=== PATIENT | male | born 1950 | race Caucasian/White ===

== ENCOUNTER → 2017-10-06 12:00 | Outpatient (CLI) | payer MEDICARE, SELFPAY ==
[2017-10-06 13:23] LABS: Absolute Lymphocyte Count 2.44 X10^3/ul (0.83-4.51); Absolute Neutrophil Count 3.3 X10^3/uL (2.0-7.7); Basophil# 0.03 X10^3/uL; Basophil% 0.5 % (0-1); Eosinophil# 0.16 X10^3/uL; Eosinophils% 2.4 % (0-5); Hematocrit 40.1 % (40-54); Hemoglobin 12.9 g/dl (13.0-16.5); Lymphocyte # 2.44 X10^3/ul (4.0); Lymphocyte % 36.6 % (19-41); Mean Corp Hgb Conc 32.2 g/gl (32-36); Mean Corpuscular Hgb 27.3 pg (27.0-32.0); Mean Platelet Vol. 10.6 fl (6.2-12.0); Monocyte% 10.5 % (0-10); Neutrophil % 49.5 % (47-70); Platelet Count 245 K/mm3 (150-450); RBC Distribution Width CV 16.1 % (11.6-14.6); RBC Distribution Width SD 49.3 fl (35.1-43.9); Red Blood Count 4.72 M/mm3 (4.6-6.2); White Blood Count 6.7 K/mm3 (4.4-11.0)
[2017-10-06 13:24] LABS: POSITIVE COUNT NO; POSITIVE DIFFERENTIAL NO; POSITIVE MORPHOLOGY NO
[2017-10-06 13:44] LABS: AST(SGOT) 23 U/L (15-37); Alanine Aminotransfer ALT/SGPT 38 U/L (16-61); Albumin, Serum 3.8 g/dL (3.2-5.0); Alkaline Phosphatase 93 U/L (45-117); Anion Gap 6 (5-15); BUN 8 mg/dL (7-18); Calcium,Total 8.3 mg/dL (8.5-10.1); Chloride 105 mmol/L (98-107); Cholesterol 148 mg/dL (200); Creatinine, Serum 0.73 mg/dL (0.70-1.30); EST Glomerular Filtration Rate 115 mL/min (>60); Est Glom Filt Rate - Afr Amer 139 mL/min (>60); Globulin 3.7 g/dL (2.2-4.2); Glucose 229 mg/dL (74-106); High Density Lipoprotein 41 mg/dL; Potassium 4.2 mmol/L (3.5-5.1); Protein, Total 7.5 g/dL (6.4-8.2); Sodium Level 136 mmol/L (136-145); Triglycerides 211 mg/dL; Very Low Density Lipoprotein 42 mg/dL (5-40)
== END ==
PROVIDERS: Family Provider Family Medicine Geriatric Medicine; PCP Family Medicine Geriatric Medicine; Visit Provider Family Medicine Geriatric Medicine
DX: E11.9 Type 2 diabetes mellitus without complications (principal); E78.4 Other hyperlipidemia; F52.8 Other sexual dysfunction not due to a substance or known physiological condition
CPT/HCPCS: 36415; 80053; 80061; 84403; 84443; 85025

== ENCOUNTER → 2018-01-12 08:42 | Outpatient (CLI) | payer MEDICARE, SELFPAY ==
[2018-01-12 12:47] LABS: Absolute Neutrophil Count 5.9 X10^3/uL (2.0-7.7); Basophil# 0.04 X10^3/uL; Basophil% 0.4 % (0-1); Eosinophil# 0.17 X10^3/uL; Eosinophils% 1.8 % (0-5); Hematocrit 45.4 % (40-54); Lymphocyte % 23.7 % (19-41); Mean Corpuscular Hgb 28.4 pg (27.0-32.0); Mean Corpuscular Volume 85.8 fL (80-94); Mean Platelet Vol. 10.9 fl (6.2-12.0); Monocyte# 0.96 X10^3/uL; Monocyte% 10.4 % (0-10); Neutrophil # 5.87 X10^3/uL (2.7-7.7); Neutrophil % 63.4 % (47-70); Platelet Count 259 K/mm3 (150-450); RBC Distribution Width CV 16.3 % (11.6-14.6); RBC Distribution Width SD 51.5 fl (35.1-43.9); Red Blood Count 5.29 M/mm3 (4.6-6.2); White Blood Count 9.3 K/mm3 (4.4-11.0)
[2018-01-12 12:48] LABS: POSITIVE COUNT NO; POSITIVE DIFFERENTIAL NO; POSITIVE MORPHOLOGY NO
[2018-01-12 13:08] LABS: AST(SGOT) 18 U/L (15-37); Alanine Aminotransfer ALT/SGPT 32 U/L (16-61); Albumin, Serum 4.2 g/dL (3.2-5.0); Alkaline Phosphatase 130 U/L (45-117); Anion Gap 12 (5-15); BUN 14 mg/dL (7-18); BUN/Creat Ratio 12.5 RATIO (10-20); Chloride 100 mmol/L (98-107); Cholesterol 150 mg/dL (200); Creatinine, Serum 1.12 mg/dL (0.70-1.30); EST Glomerular Filtration Rate 70 mL/min (>60); Est Glom Filt Rate - Afr Amer 85 mL/min (>60); Globulin 4.4 g/dL (2.2-4.2); Glucose 232 mg/dL (74-106); High Density Lipoprotein 35 mg/dL; PSA,Total - Annual Screen 0.44 ng/mL (0.00-4.00); Potassium 3.7 mmol/L (3.5-5.1); Protein, Total 8.6 g/dL (6.4-8.2); Sodium Level 137 mmol/L (136-145); Thyroid Stim Hormone (TSH) 1.05 uIU/mL (0.358-3.74); Triglycerides 214 mg/dL; Very Low Density Lipoprotein 43 mg/dL (5-40)
[2018-01-13 08:43] LABS: Vitamin D,25 Hydroxy 18.6 ng/mL (29.95-100.01)
[2018-01-13 08:47] LABS: Hep C Antibodies <0.1 s/co ratio (0.0-0.9)
== END ==
PROVIDERS: Family Provider Family Medicine Geriatric Medicine; PCP Family Medicine Geriatric Medicine; Visit Provider Family Medicine Geriatric Medicine
DX: E11.9 Type 2 diabetes mellitus without complications (principal); E55.9 Vitamin D deficiency, unspecified; E78.4 Other hyperlipidemia; F52.8 Other sexual dysfunction not due to a substance or known physiological condition; I10 Essential (primary) hypertension; Z12.5 Encounter for screening for malignant neoplasm of prostate; Z13.89 Encounter for screening for other disorder
CPT/HCPCS: 36415; 80053; 80061; 82306; 84153; 84403; 84443; 85025; 86803; G0103

== ENCOUNTER 2018-03-17 06:51 | Day surgery (SDC) | payer MEDICARE, SELFPAY ==
[2018-03-17 07:34] VITALS: BP 120/67; PULSE 85; RESP 16; TEMP 37.1; O2SAT 97; BMI 31.2
[2018-03-17 07:51] LABS: Bedside Glucose 261 mg/dL (70-110)
[2018-03-17 08:21] VITALS: BP 120/67; BP 87/50; PULSE 85; RESP 18; TEMP 37.2; O2SAT 97
[2018-03-17 08:25] VITALS: BP 120/67; BP 127/74; PULSE 81; RESP 18; O2SAT 93
--- NOTE | 2018-03-17 08:25 | H&P.OPEN ---
Past Medical/Surgical History - Planned Operation Planned Operative Procedure/s: cscope Date of Operative Procedure: 03/17/18 Permit Signed: No S.O.S: No Is This Patient Having a Total Joint: No - Previous Hospitalizations/Surgeries HX Hospitalizations: No HX of Surgeries: bilat vein clotting in legs and had veins cleaned. lower back surgery x2 Any Problems With Anesthesia: No You/Your Family Experience Fever (Hyperthermia) With Anes: No Cholinesterase deficiency: No - Cardiovascular Hx Chest Pain within Last 2 months: No Hx of Irregular Heartbeat and/or Afib: No Hx Heart Attack: No Hx Congestive Heart Failure: No Hx Rheumatic Fever: Yes Hx Hypertension: Yes - controlled with med Hx Internal Defibrillator: No Hx Pacemaker: No Hx Cardiac Catheterization: No Hx Cardiac Surgery/Stents/Etc.: No Hx Stress Test: No HX Edema: No Hx Pain in Legs when Walking/Leg Cramps: Yes - Respiratory Chronic Cough: No HX of Shortness of Breath: Yes - sob with 2 flights of stairs Hoarseness: No Hx Chronic Obstructive Pulmonary Disease (COPD): No Hx Asthma: No Hx Emphysema: No Hx Sleep Apnea: No CPAP: No BIPAP: No Hx Oxygen Use at Home: No Hx Respiratory Tract Infection/Cold (presently): No Do You Snore Loudly (louder than talking or can be heard): Yes Do You Often Feel Tired/ Fatigued/ Sleepy Dring Daytime?: Yes Has Anyone Observed You Stop Breathing During Sleep?: No Result (for STOP score): Positive Hx Smoking: Yes - 1-1.5 ppd for 35 yrs Smoking Status: Current every day smoker - Gastrointestinal Hx Gastroesophageal Reflux: Yes Controlled With Meds: Yes Hx Gastrointestinal Disorders: No Hx Gastrointestinal Bleed: No Hx Ulcer: No Hx Hiatal Hernia: No Difficulty Chewing/Swallowing: No Recent Onset of Swallowing Problems: No Special diet followed at home: Yes - diabetic Hx Unplanned Weight Loss of 20#: No HX Unplanned Weight Gain of 20#: No - Neurological Hx Seizures: No HX Syncope/Blackout Spells/Unconsciousness: No Hx CVA/Stroke: No Hx Transient Ischemic Attacks (TIA): No Hx Multiple Sclerosis: No Hx Parkinson's Disease: No Hx Head/Neck Injury: No Hx Headaches: No Hx Back Injury/Pain: Yes - back surgery x2/continues with back pain Recent Onset of Speech Difficulty: No Restless Legs: No Does patient have nerve stimulator: No Patient instructed to have device shut off: No Rep notified?: No - Blood Disorder Hx Leukemia: No Bleeding Tendencies: No Hx Deep Vein Thrombosis: Yes - lower legs Hx High Cholesterol: Yes - on med Blood Transmitted Disease: No Hx Hepatitis: No Hx Cirrhosis: No Hx Anemia: No Hx Blood Disorders: No - Genitourinary Hx Renal Disease: No - Musculoskeletal Hx Arthritis: Yes Hx Rheumatoid Arthritis: No Hx Gout: No Recent Onset of an Orthopedic Problem: No - Endocrine Hx Diabetes: Yes Insulin: Yes Thyroid Disease: No Hx Steroid Therapy: No - Psycho/Social Hx Substance Use: No Hx Alcohol Use: No Hx Anxiety: No Hx Depression: No Mental Illness: No Hx Dementia: No - Miscellaneous Hx Cancer: No Recent Exposure to Contagious Disease: No Active MRSA: No Hx of C-Diff: No Any Loose Teeth: No Allergies No Known Allergies Allergy (Verified 03/13/18 15:11) Paternal No pertinent history - Discharge Is Pt Admitted From a Longterm, or a Usp: No Who Could Help: family After D/C, Where Do you Plan to Go: Return Home - From the PAT History Number of Risk Factors: 4 - Physical Exam General: Alert, Oriented x3, Cooperative HEENT: Atraumatic Lungs: Normal air movement Cardiovascular: Regular rate, Regular Rhythm Abdomen: Soft, Non Tender, Non-Distended Vital Signs Temp Pulse Resp BP Pulse Ox 98.9 F 85 18 87/50 L 97 03/17/18 08:21 03/17/18 08:21 03/17/18 08:21 03/17/18 08:21 03/17/18 08:21 Oxygen Delivery Method Room Air Weight: 223 lb 15.834 oz Body Mass Index (BMI) 31.2 Finger Stick Blood Glucose 317 POC Glucose 03/17/18 07:39 POC Glucose 261 H Assessment/Plan All Active Problems Lumbar spinal stenosis (Acute) 67-year-old male for screening colonoscopy 1. Patient reports this is his first screening colonoscopy. He is having no abdominal pain or blood in his stool. He has stopped his blood thinners before the procedure. He has no family history of colon cancer. 2. I explained endoscopy in detail to the patient. I explained the risks including but not limited to stroke or heart attack with anesthesia, perforation of the GI tract, bleeding, infection. I explained that any of these could necessitate further emergency surgery. The patient understands and all questions were answered sufficiently. The patient wishes to proceed with procedure. Thee Velazquez MD Pager: [facility] [address] [place] [address] [address] [place] [address] Office: Surgery Risks - Colonoscopy Risks Include but are not Limited To: Risks include but are not limited to: Bleeding, perforation requiring further surgery, inability to complete colonoscopy requiring barium enema.
--- NOTE | 2018-03-17 08:28 | PCM.OPRPT ---
Problem List (1) Screen for colon cancer Status: Acute Report of Operation Date of Procedure: 03/17/18 Pre-Operative Diagnosis: Screening for colon cancer Post-Operative Diagnosis: Normal colonoscopy Surgery/Procedure Performed:: Colonoscopy Specimen's removed: None Description of Procedure: The major risks and benefits associated with the procedure were explained to the patient in detail. The patient verbalized understanding and agreement with the same. The patient was brought to the endoscopy suite. After adequate sedation was achieved, the patient was placed in the left lateral decubitus position and a digital rectal exam was performed. This examination was within normal limits. A well-lubricated colonoscope was then inserted into the rectum and advanced under direct visualization to the level of the cecum. The bowel prep was good. The cecum was identified by both visual and anatomic landmarks. A photograph was taken of the end of the cecum. The scope was then fully withdrawn while examining the color, texture, anatomy and integrity of the mucosa from the cecum to the anal canal. The findings were consistent with normal colonic mucosa. Over 6 minutes were taken to examine the colonic mucosa. Upon reaching the rectum the scope was retroflexed to examine the distal rectal vault. The scope was then straightened and was completely retrieved upon exiting the anal canal and the procedure was terminated. The patient was then transferred to the recovery room in stable condition. Recommendations for follow up: 10 years
[2018-03-17 08:30] VITALS: BP 120/67; BP 92/68; PULSE 81; RESP 18; O2SAT 94
[2018-03-17 08:35] VITALS: BP 120/67; BP 128/75; PULSE 78; PULSE 80; RESP 18; TEMP 36.6; O2SAT 95; O2SAT 96
[2018-03-17 08:50] LABS: Bedside Glucose 239 mg/dL (70-110)
[2018-03-17 09:00] VITALS: BP 120/67
== END 2018-03-17 09:10 | disposition home or self-care (01) ==
LOC: EN 06:52 → AC 06:55
PROVIDERS: Family Provider Family Medicine Geriatric Medicine; PCP Family Medicine Geriatric Medicine; Visit Provider Surgery
PROC: 0DJD8ZZ Inspection of Lower Intestinal Tract, Via Natural or Artificial Opening Endoscopic (ICD-10-PCS; CPT 45378; principal; 2018-03-17 07:55)
DX: Z12.11 Encounter for screening for malignant neoplasm of colon (principal); K21.9 Gastro-esophageal reflux disease without esophagitis; E78.00 Pure hypercholesterolemia, unspecified; E11.9 Type 2 diabetes mellitus without complications; I10 Essential (primary) hypertension; F17.200 Nicotine dependence, unspecified, uncomplicated; Z86.718 Personal history of other venous thrombosis and embolism; Z79.4 Long term (current) use of insulin; Z79.01 Long term (current) use of 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s; Z79.02 Long term (current) use of antithrombotics/antiplatelets; Z79.82 Long term (current) use of aspirin; Z79.899 Other long term (current) drug therapy
CPT/HCPCS: G0121; 82962; J7120

== ENCOUNTER → 2018-04-12 15:00 | Outpatient (CLI) | payer MEDICARE, SELFPAY ==
[2018-04-12 16:10] LABS: Absolute Lymphocyte Count 2.45 X10^3/ul (0.83-4.51); Absolute Neutrophil Count 2.8 X10^3/uL (2.0-7.7); Basophil# 0.02 X10^3/uL; Basophil% 0.3 % (0-1); Eosinophil# 0.14 X10^3/uL; Eosinophils% 2.4 % (0-5); Hematocrit 42.5 % (40-54); Hemoglobin 13.5 g/dl (13.0-16.5); Lymphocyte # 2.45 X10^3/ul (4.0); Lymphocyte % 41.5 % (19-41); Mean Corp Hgb Conc 31.8 g/gl (32-36); Mean Corpuscular Hgb 28.5 pg (27.0-32.0); Mean Corpuscular Volume 89.9 fL (80-94); Monocyte# 0.49 X10^3/uL; Monocyte% 8.3 % (0-10); Neutrophil # 2.79 X10^3/uL (2.7-7.7); Neutrophil % 47.3 % (47-70); Platelet Count 232 K/mm3 (150-450); RBC Distribution Width CV 15.4 % (11.6-14.6); Red Blood Count 4.73 M/mm3 (4.6-6.2); White Blood Count 5.9 K/mm3 (4.4-11.0)
[2018-04-12 16:29] LABS: Vitamin D,25 Hydroxy 14.5 ng/mL (29.95-100.01)
[2018-04-12 16:33] LABS: ALB/GLOB Ratio 1.1 RATIO (0.9-2.4); AST(SGOT) 22 U/L (15-37); Alanine Aminotransfer ALT/SGPT 39 U/L (16-61); Albumin, Serum 3.9 g/dL (3.2-5.0); Alkaline Phosphatase 74 U/L (45-117); Anion Gap 9 (5-15); BUN 8 mg/dL (7-18); BUN/Creat Ratio 10.4 RATIO (10-20); Chloride 108 mmol/L (98-107); Cholesterol 173 mg/dL (200); Creatinine, Serum 0.77 mg/dL (0.70-1.30); EST Glomerular Filtration Rate 108 mL/min (>60); Est Glom Filt Rate - Afr Amer 131 mL/min (>60); Globulin 3.7 g/dL (2.2-4.2); Glucose 85 mg/dL (74-106); High Density Lipoprotein 38 mg/dL; Potassium 3.9 mmol/L (3.5-5.1); Protein, Total 7.6 g/dL (6.4-8.2); Sodium Level 141 mmol/L (136-145); Thyroid Stim Hormone (TSH) 0.88 uIU/mL (0.358-3.74); Triglycerides 225 mg/dL; Very Low Density Lipoprotein 45 mg/dL (5-40)
[2018-04-12 17:16] LABS: POSITIVE COUNT NO; POSITIVE DIFFERENTIAL NO; POSITIVE MORPHOLOGY NO
== END ==
LOC: POLAB3 15:01
PROVIDERS: Family Provider Family Medicine Geriatric Medicine; PCP Family Medicine Geriatric Medicine; Visit Provider Family Medicine Geriatric Medicine
DX: E11.9 Type 2 diabetes mellitus without complications (principal); E55.9 Vitamin D deficiency, unspecified; E87.4 Mixed disorder of acid-base balance; I10 Essential (primary) hypertension; F52.8 Other sexual dysfunction not due to a substance or known physiological condition
CPT/HCPCS: 36415; 80053; 80061; 82306; 84403; 84443; 85025

== ENCOUNTER → 2018-09-25 16:07 | Outpatient (CLI) | payer MEDICARE, SELFPAY ==
[2018-09-25 17:21] LABS: Absolute Lymphocyte Count 2.64 X10^3/ul (0.83-4.51); Absolute Neutrophil Count 3.8 X10^3/uL (2.0-7.7); Basophil# 0.04 X10^3/uL; Basophil% 0.6 % (0-1); Eosinophil# 0.12 X10^3/uL; Eosinophils% 1.7 % (0-5); Hematocrit 36.6 % (40-54); Hemoglobin 11.4 g/dl (13.0-16.5); Lymphocyte # 2.64 X10^3/ul (4.0); Lymphocyte % 37.1 % (19-41); Mean Corp Hgb Conc 31.1 g/gl (32-36); Mean Corpuscular Hgb 26.3 pg (27.0-32.0); Mean Corpuscular Volume 84.3 fL (80-94); Mean Platelet Vol. 9.7 fl (6.2-12.0); Monocyte# 0.54 X10^3/uL; Monocyte% 7.6 % (0-10); Neutrophil # 3.75 X10^3/uL (2.7-7.7); Neutrophil % 52.6 % (47-70); Platelet Count 497 K/mm3 (150-450); RBC Distribution Width CV 16.2 % (11.6-14.6); RBC Distribution Width SD 49.8 fl (35.1-43.9); Red Blood Count 4.34 M/mm3 (4.6-6.2); White Blood Count 7.1 K/mm3 (4.4-11.0)
[2018-09-25 17:25] LABS: POSITIVE COUNT NO; POSITIVE DIFFERENTIAL NO; POSITIVE MORPHOLOGY NO
[2018-09-25 17:40] LABS: ALB/GLOB Ratio 0.9 RATIO (0.9-2.4); AST(SGOT) 17 U/L (15-37); Alanine Aminotransfer ALT/SGPT 20 U/L (16-61); Albumin, Serum 3.6 g/dL (3.2-5.0); Alkaline Phosphatase 110 U/L (45-117); Anion Gap 7 (5-15); BUN 12 mg/dL (7-18); BUN/Creat Ratio 12.9 RATIO (10-20); Calcium,Total 8.6 mg/dL (8.5-10.1); Chloride 108 mmol/L (98-107); Cholesterol 136 mg/dL (200); Creatinine, Serum 0.93 mg/dL (0.70-1.30); EST Glomerular Filtration Rate 87 mL/min (>60); Est Glom Filt Rate - Afr Amer 105 mL/min (>60); Globulin 3.9 g/dL (2.2-4.2); Glucose 45 mg/dL (74-106); High Density Lipoprotein 32 mg/dL; Potassium 3.8 mmol/L (3.5-5.1); Protein, Total 7.5 g/dL (6.4-8.2); Sodium Level 138 mmol/L (136-145); Thyroid Stim Hormone (TSH) 0.73 uIU/mL (0.358-3.74); Triglycerides 187 mg/dL; Very Low Density Lipoprotein 37 mg/dL (5-40)
== END ==
LOC: POLAB3 16:08
PROVIDERS: Family Provider Family Medicine Geriatric Medicine; PCP Family Medicine Geriatric Medicine; Visit Provider Family Medicine Geriatric Medicine
DX: E11.9 Type 2 diabetes mellitus without complications (principal); E78.49 Other hyperlipidemia; F52.8 Other sexual dysfunction not due to a substance or known physiological condition; I10 Essential (primary) hypertension
CPT/HCPCS: 36415; 80053; 80061; 84403; 84443; 85025

== ENCOUNTER → 2019-05-02 | Outpatient (CLI) | payer MEDICARE, SELFPAY ==
[2019-05-02 17:10] LABS: Absolute Neutrophil Count 4.1 X10^3/uL (2.0-7.7); Basophil# 0.05 X10^3/uL; Basophil% 0.7 % (0-1); Eosinophil# 0.12 X10^3/uL; Eosinophils% 1.7 % (0-5); Hematocrit 42.7 % (40-54); Lymphocyte % 33.2 % (19-41); Mean Corp Hgb Conc 32.8 g/dL (32-36); Mean Corpuscular Hgb 30.5 pg (27.0-32.0); Mean Platelet Vol. 10.5 fl (6.2-12.0); Monocyte# 0.53 X10^3/uL; Monocyte% 7.3 % (0-10); NRBC Flagged by Analyzer 0 % (0-5); Neutrophil # 4.08 X10^3/uL (2.7-7.7); Neutrophil % 56.5 % (47-70); Platelet Count 264 K/mm3 (150-450); RBC Distribution Width CV 13.2 % (11.6-14.6); Red Blood Count 4.59 M/mm3 (4.6-6.2); White Blood Count 7.2 K/mm3 (4.4-11.0)
[2019-05-02 17:36] LABS: Vitamin D,25 Hydroxy 16.7 ng/mL (29.95-100.01)
[2019-05-02 17:38] LABS: ALB/GLOB Ratio 1.1 RATIO (0.9-2.4); AST(SGOT) 29 U/L (15-37); Alanine Aminotransfer ALT/SGPT 38 U/L (16-61); Alkaline Phosphatase 147 U/L (45-117); Anion Gap 10 (5-15); BUN 16 mg/dL (7-18); BUN/Creat Ratio 14.5 RATIO (10-20); Calcium,Total 9.4 mg/dL (8.5-10.1); Chloride 103 mmol/L (98-107); Cholesterol 208 mg/dL (200); EST Glomerular Filtration Rate 71 mL/min (>60); Est Glom Filt Rate - Afr Amer 86 mL/min (>60); Globulin 3.5 g/dL (2.2-4.2); Glucose 411 mg/dL (74-106); High Density Lipoprotein 34 mg/dL; PSA,Total - Annual Screen 0.54 ng/mL (0.00-4.00); Potassium 4.3 mmol/L (3.5-5.1); Protein, Total 7.5 g/dL (6.4-8.2); Sodium Level 137 mmol/L (136-145); Thyroid Stim Hormone (TSH) 1.13 uIU/mL (0.358-3.74); Triglycerides 398 mg/dL; Very Low Density Lipoprotein 80 mg/dL (5-40)
== END | disposition home or self-care (01) ==
LOC: POLAB3 15:18
PROVIDERS: Family Provider Family Medicine Geriatric Medicine; PCP Family Medicine Geriatric Medicine; Visit Provider Family Medicine Geriatric Medicine
DX: E11.9 Type 2 diabetes mellitus without complications (principal); E55.9 Vitamin D deficiency, unspecified; E78.5 Hyperlipidemia, unspecified; F52.8 Other sexual dysfunction not due to a substance or known physiological condition; I10 Essential (primary) hypertension; Z12.5 Encounter for screening for malignant neoplasm of prostate
CPT/HCPCS: 36415; 80053; 80061; 82306; 84153; 84403; 84443; 85025; G0103

== ENCOUNTER 2019-07-14 16:57 | Emergency (ER) | payer MEDICARE, SELFPAY ==
[2019-07-14 16:58] VITALS: BP 136/82; PULSE 118; RESP 15; TEMP 36.7; O2SAT 96; BMI 29.8
--- NOTE | 2019-07-14 18:37 | RAD_ITS ---
STUDY: X-RAY - RIGHT FOOT CLINICAL: Male, 68 years old. bottom of 1st toe is black -- pt unsure how long but had a cut on toe x 1 month -- pt is diabetic TECHNIQUE: 3 view(s) of the foot. COMPARISON: None. FINDINGS: Normal talus, calcaneus, and tarsal bones. Normal visualized subtalar, talonavicular, calcaneocuboid, tarsal and tarsometatarsal articulations. Normal metatarsi. There are mild age-related joint degenerative changes. Normal metatarsophalangeal joint of the great toe. Normal tibial and fibular sesamoid bones. Normal interphalangeal joint of the great toe. Normal phalanges of the great toe. Normal second through fifth metatarsophalangeal joints. Normal interphalangeal joints and phalanges of the lesser toes. Atherosclerotic calcifications are present in the arterial tree and surgical clips in the medial soft tissues, possibly vein graft harvesting. RAD/Foot min 3 Views IMPRESSION: Unremarkable osseous structures with mild age-related degenerative change. Electronically Signed: Tianna Parker, at 20:03 EST Tel , Service support ,
[2019-07-14] MEDS: fentaNYL 100 MCG/2 ML Ampul 50 MCG IV (18:59)
[2019-07-14 19:13] LABS: Absolute Lymphocyte Count 2.76 X10^3/uL (0.83-4.51); Absolute Neutrophil Count 7.5 X10^3/uL (2.0-7.7); Basophil# 0.05 X10^3/uL; Basophil% 0.4 % (0-1); Eosinophil# 0.09 X10^3/uL; Eosinophils% 0.8 % (0-5); Hematocrit 41.4 % (40-54); Hemoglobin 13.3 g/dL (13.0-16.5); Lymphocyte # 2.76 X10^3/ul (4.0); Lymphocyte % 24.2 % (19-41); Mean Corp Hgb Conc 32.1 g/dL (32-36); Mean Corpuscular Hgb 29.4 pg (27.0-32.0); Mean Corpuscular Volume 91.4 fL (80-94); Mean Platelet Vol. 9.3 fl (6.2-12.0); Monocyte# 0.95 X10^3/uL; Monocyte% 8.3 % (0-10); NRBC Flagged by Analyzer 0 % (0-5); Neutrophil # 7.49 X10^3/uL (2.7-7.7); Neutrophil % 65.7 % (47-70); Platelet Count 334 K/mm3 (150-450); RBC Distribution Width CV 12.7 % (11.6-14.6); RBC Distribution Width SD 42.8 fl (35.1-43.9); Red Blood Count 4.53 M/mm3 (4.6-6.2); White Blood Count 11.4 K/mm3 (4.4-11.0)
[2019-07-14 19:18] LABS: Erythrocyte Sedimentation Rate 44 mm/hr (0-20)
[2019-07-14 19:21] LABS: Partial Thromboplast Time 46.4 Seconds (24.1-36.2)
[2019-07-14 19:38] LABS: Anion Gap 4 (5-15); BUN 7 mg/dL (7-18); BUN/Creat Ratio 8.2 RATIO (10-20); Chloride 105 mmol/L (98-107); Creatinine, Serum 0.86 mg/dL (0.70-1.30); EST Glomerular Filtration Rate 95 mL/min (>60); Est Glom Filt Rate - Afr Amer 115 mL/min (>60); Estimated Creatinine Clearance 89.99 ml/min; Glucose 249 mg/dL (74-106); Potassium 4.1 mmol/L (3.5-5.1); Sodium Level 137 mmol/L (136-145)
[2019-07-14 20:00] VITALS: BP 143/84; PULSE 104; RESP 16; O2SAT 95
[2019-07-14 22:33] LABS: International Normalized Ratio 2.2; Prothrombin Time (Protime)PT. 24.7 SECONDS (11.7-14.9)
--- NOTE | 2019-07-14 22:38 | ED.DCSUM_ITS ---
- ER Visit Summary Date of Service: 07/14/19 Chief Complaint: Toe wound History of Present Illness: The patient is a 68 M with a toe wound. This has been going on for weeks. This is the right great toe. There is some black tissue and drainage. He has a history of diabetes, neuropathy, peripheral vascular disease. He is also on Coumadin for history of DVT. Physical Examination: Afebrile and vital signs unremarkable except for heart rate of 118. Patient has a necrotic right great toe with skin sloughing. No crepitus. There is some erythema at the base of the toe as well. Foot is unremarkable. Neurovascularly intact. Otherwise exam unremarkable. Test Results: White count 11.4. Glucose 249, INR 2.2. ESR 44 and CRP 23.5. X- ray shows degenerative changes. Emergency Department Course and Treatment: Patient was discussed with Dr. Meyers. This has been an ongoing subacute issue or chronic issue. There is no indication for hospitalization at this time. The patient can be managed as an outpatient. Follow-up in the clinic on Tuesday or Tuesday. Keflex. Recheck INR. Return for any new or worsening issues. Treatment Plan: As above Disposition: Discharge Impression: 1. Right great toe necrosis This note was generated with [employer] dictation software. It may contain incorrect words, spelling, and punctuation that were not noted in review of the chart prior to signing ED Disposition - Plan for ED Patient: Referrals: Saurabh Hernandez Chi, MD [Primary Care Provider] -
--- NOTE | 2019-07-14 22:40 | ED.DEP ---
ED Disposition - Plan for ED Patient: Instructions: Diabetic Foot Ulcers Prescriptions: Cephalexin [Keflex] 500 mg PO Q6 #40 cap Prescription Printed Referrals: Jordyn Meyers DPM [STAFF PHYSICIAN] -
[2019-07-14 23:12] VITALS: BP 116/83; PULSE 100; RESP 16; O2SAT 96
[2019-07-14] MEDS: Cephalexin 250 MG Capsule 500 MG PO (23:13)
== END 2019-07-14 23:25 | disposition home or self-care (01) ==
PROVIDERS: Emergency Provider Emergency Medicine; Family Provider Family Medicine Geriatric Medicine; PCP Family Medicine Geriatric Medicine
DX: E11.52 Type 2 diabetes mellitus with diabetic peripheral angiopathy with gangrene (principal); I96 Gangrene, not elsewhere classified; E11.40 Type 2 diabetes mellitus with diabetic neuropathy, unspecified; I10 Essential (primary) hypertension; J44.9 Chronic obstructive pulmonary disease, unspecified; K21.9 Gastro-esophageal reflux disease without esophagitis; Z86.718 Personal history of other venous thrombosis and embolism; Z79.01 Long term (current) use of 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s; Z79.02 Long term (current) use of antithrombotics/antiplatelets; Z79.4 Long term (current) use of insulin; Z79.84 Long term (current) use of oral hypoglycemic drugs; Z79.82 Long term (current) use of aspirin; Z79.899 Other long term (current) drug therapy; Z72.0 Tobacco use
CPT/HCPCS: 73630; 80048; 85025; 85610; 85652; 85730; 86140; 96374; 99283; A4216

== ENCOUNTER 2019-07-17 14:55 | Inpatient (IN) | payer MEDICARE, SELFPAY ==
--- NOTE | 2019-07-17 10:40 | CASEMGMT ---
RN CM REFERRAL AND INFORMATION AIDE CM to room to meet with patient for initial transition planning/care coordination assessment. RN HIEN introduced self and role at [facility]. Pt voices understanding and consents to assessment at this time. Pt sitting up in recliner chair in no distress at this time. Pt is A/O at this time and answers all questions appropriately. Care providers, pharmacy, and demographics verified/updated at this time. PCP: David Specialists: Kallie--Snowboard Instructor, Whit--ENT Preferred Pharmacy: [facility] Insurance: [employer] [facility] Prescription Benefit: Yes Living Will/HPOA: has LW and Healthcare POA, who is her daughter, October. LNOK: daughter Living Arrangements: Lives in one-story apartment with no steps. States her is in a skilled nursing and she thinks it will be long-term. is independent with ADL's and home mgmt tasks. Transportation: Pt states drives self and states no transportation concerns at this time. Daughter drives and will be taking her home @ discharge. DME: has the following DME: nebulizer. Has a cane but does not use it. Pt would like information on medical alert button. Given list of local [employer] that provide this. Pt is also interested in a shower chair. She was made aware shower chairs are not covered under [facility] and informed this could be purchased at a local pharmacy of her choice. HHC/SNF: No history of either. Discussed options of therapy @ discharge. Pt is interested in going to [facility] for OP therapy. Script obtained from and faxed to [facility]. Pt also given script at this time. Pt wishes to return home w/OP therapy and states has no concerns with going home at time of discharge. CM to follow for any further discharge planning/needs. Pt voices no further concerns/needs at this time. Advised pt to ask for CM if any further questions/concerns/needs arise. Voices understanding. PLAN:Home w/OP therapy. GONSALES form reviewed with pt and questions answered. Copy made and placed on chart and original given to pt. Pt made aware to ask for CM if she has any further questions. Yehuda HENDERSON RN, CM
--- NOTE | 2019-07-17 14:55 | MRI_ITS ---
HISTORY:right great toe necrosis. Woun, covers entire bottom of right first toe x 1.5 months right great toe necrosis. Woun, covers entire bottom of right first toe x 1.5 months EXAMINATION: MR Forefoot W/O Contrast TECHNIQUE: Multiplanar and multisequence MR images were performed of the right forefoot.... IV Contrast dosage and agent: None. COMPARISON: Radiographs of the right foot obtained on July 14, 2019 FINDINGS: BONE: Abnormal signal is seen within the distal phalanx of the great toe this demonstrates increased signal on STIR weighted imaging and slightly decreased signal on T1-weighted imaging. Subtle linear area of low signal seen at the base of the tuft on this study has been the appearance of a nondisplaced fracture. The marrow signal on T1 is slightly decreased compared to the proximal phalanx. SOFT TISSUES: There is subcutaneous edema seen at the plantar surface of the foot at the level of the great toe. Small joint effusion is seen at the first metatarsophalangeal joint as well as interphalangeal joint of the great toe. Bipartite medial sesamoid. No evidence of tenosynovitis . MRI/Lower Ext/No Jt/w/o IMPRESSION: Subtle decreased signal on T1-weighted imaging within the distal phalanx of the great toe.. This demonstrates increased signal on T2-weighted images. In addition there is a linear area of low signal on the T1-weighted images through the great toe at the base of the tuft may represent a nondisplaced. There may be early osteomyelitis involving the tuft of the toe but poorly visualized on this study. Consider repeating the study with contrast for further evaluation if clinically indicated Edema is seen at the plantar surface of the foot at the level of the great toe. at 2100 Reported and signed by: Armida Caldera DO Electronically Signed: Armida Caldera MD at 20:59 EST Tel , Service support ,
--- NOTE | 2019-07-17 14:55 | ART_ITS ---
Reason For Study: ulcer Procedure A bilateral lower extremity continuous wave Doppler with analog waveform analysis,segmental pressures,and ankle brachial indexes without exercise. Left Segmental Pressures Left brachial= 136mmHg. Left posterior tibial artery = 164mmHg. Left dorsalis pedis artery = 168mmHg. Left digit = 81 mmHg. The left posterior tibial artery waveforms are triphasic. The left dorsalis pedis waveforms are biphasic. Right Segmental Pressures Right brachial= 136mmHg. Right thigh = 111mmHg. Right calf = 90mmHg. Right posterior tibial artery = 89mmHg. Right dorsalis pedis artery = 79mmHg. The right dorsalis pedis waveforms are monophasic. The right posterior tibial artery waveforms are monophasic. Indices The right ankle brachial index by the dorsalis pedis is .58. The right ankle brachial index by the posterior tibial artery is .65. The left ankle brachial index by the dorsalis pedis is 1.24. The left ankle brachial index by the posterior tibial artery is 1.21. The left digital-brachial index is .6. Interpretation Summary 1. Right leg moderate occlussive disease with HERNESTO 0.65 and monophasic flow. 2. Left normal at rest with HERNESTO 1.24 and triphasic flow. Ordering Physician: Niranjan Portillo Referring Physician: NIRANJAN PORTILLO MD Performed By: TORSTEN MARSHALL T
--- NOTE | 2019-07-17 15:02 | ADUL_ITS ---
Reason For Study: ulcer Right Velocities Ext. Iliac Artery, dist = 68.7 cm./sec. Common Femoral Artery, mid = 22.6 cm./sec. Supf Femoral Artery, prox = 88.8 cm./sec. Supf Femoral Artery, dist. = 283.1 cm./sec. Profunda Femoral Artery = 114.4 cm./sec. Popliteal Artery, prox. = 44.9 cm./sec. Popliteal Artery, mid = 81.4 cm./sec. Popliteal Artery, dist = 37.6 cm./sec. Post. Tibial Artery, mid = 19.6 cm./sec. Post. Tibial Artery, dist = 35.3 cm./sec. Peroneal Artery, prox = 52.4 cm./sec. Peroneal Artery, mid = 58.1. cm./sec. Peroneal Artery,dist = 53.8 cm./sec. Ant. Tibial Artery, prox = 26.0 cm./sec. Ant. Tibial Artery, mid = 17.5 cm./sec. Ant. Tibial Artery, dist = 63.0 cm./sec. 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 Interpretation Summary 1. Right distal SFA occluded. Ordering Physician: Ale Hidalgo Performed By: Pierce Ziegler RVT
[2019-07-17 15:36] VITALS: BMI 29.9
[2019-07-17 15:38] VITALS: BP 132/80; PULSE 107; RESP 16; TEMP 36.7; O2SAT 99
--- NOTE | 2019-07-17 15:46 | PCM.HP.STD ---
Problem List (1) Diabetic foot infection Status: Acute (2) Lumbar spinal stenosis Status: Chronic Qualifiers: Neurogenic claudication status: unspecified Qualified Code(s): M48.061 - Spinal stenosis, lumbar region without neurogenic claudication (3) COPD (chronic obstructive pulmonary disease) Status: Chronic Qualifiers: Emphysema type: unspecified (4) Diabetes mellitus Status: Chronic Qualifiers: Diabetes mellitus type: type 2 Diabetes mellitus detention insulin use: without rn long term care use Diabetes mellitus complication status: with other specified complication Qualified Code(s): E11.69 - Type 2 diabetes mellitus with other specified complication (5) GERD (gastroesophageal reflux disease) Status: Chronic Qualifiers: Esophagitis presence: esophagitis presence not specified Qualified Code(s): K21.9 - Gastro-esophageal reflux disease without esophagitis (6) Hyperlipidemia Status: Chronic Qualifiers: Hyperlipidemia type: unspecified Qualified Code(s): E78.5 - Hyperlipidemia, unspecified (7) Hypertension Status: Chronic Qualifiers: Hypertension type: essential hypertension Qualified Code(s): I10 - Essential (primary) hypertension (8) IDDM (insulin dependent diabetes mellitus) Status: Chronic (9) Neuropathy Status: Chronic (10) Obstructive sleep apnea Status: Chronic (11) Peripheral vascular disease Status: Chronic (12) Tobacco abuse Status: Chronic History of Present Illness Date of Admission: 07/17/19 Chief Complaint: R great toe infection, referred per Podiatry office The patient is a 68 y/o M w/ PMHx: Chronic pain syndrome s/p back surgery x 2, Hx BL LE DVT, Chronic COPD, HTN, HLD, Diabetes mellitus type II (HgbA1c 10%), OA, GERD, Tobacco use with recent ED evaluation on 07/14/19 with diabetic foot infection w/ toe injury several weeks prior to the R great toe, worsening, noted to be necrotic w/ skin sloughing, initiated per ED on oral keflex regimen with referral to Podiatry who now re-presents per Podiatry request, Dr. Lozano to the [facility] as direct admission on 07/17/19 with history of worsening appearance to the R great toe, noted in the office without marked fever or chills but severe 10/10 pain to the region with noted evidence gangrene, turing into wet with odor, celluitis to the region. He rates pain primarily to the foot with swelling more so than his toe, tentative 10 in severity. Most recent ED evaluation 07/14/19 with CBC with WBC 11.4, hemoglobin 13.3, platelet 334 without market shift, ESR 44, CRP 23.5, INR 2.2, BMP with glucose 249, plain film of the affected foot with unremarkable osseous structures with mild age-related degenerative changes no evidence of obvious osteomyelitis at that time. Past Medical History Past Medical History (Chronic Problems): Chronic Problems Lumbar spinal stenosis (Chronic) Obstructive sleep apnea (Chronic) Scabies infestation (Chronic) DVT (deep venous thrombosis) (Chronic) Tobacco abuse (Chronic) GERD (gastroesophageal reflux disease) (Chronic) Neuropathy (Chronic) Hypertension (Chronic) COPD (chronic obstructive pulmonary disease) (Chronic) Peripheral vascular disease (Chronic) Hyperlipidemia (Chronic) Erectile dysfunction (Chronic) Diabetes mellitus (Chronic) IDDM (insulin dependent diabetes mellitus) (Chronic) Allergies No Known Allergies Allergy (Verified 03/13/18 15:11) Home Medications: Ambulatory Orders Medication Instructions Recorded Diltiazem 180 mg PO DAILY 09/26/13 Gabapentin [Neurontin] 600 mg PO TID 09/26/13 Ranitidine [Zantac] 300 mg PO DAILY 09/26/13 Humalog 35 units SQ BID 11/06/15 Multivitamin [Daily Multiple 1 each PO DAILY 11/06/15 Vitamin] Warfarin [Coumadin] 8 mg PO DAILY@1700 11/06/15 Zolpidem Tartrate [Ambien] 10 mg PO QHS 11/06/15 metFORMIN HCl [Glucophage] 1,000 mg PO BIDCM 11/06/15 Potassium Chloride [K-Dur] 20 meq PO DAILYCM #30 tablet 11/15/15 Aspirin [Aspirin, Baby] 81 mg PO DAILY@0800 09/22/16 Atorvastatin Calcium [Lipitor] 40 mg PO DAILY 03/13/18 Hydrochlorothiazide [Hctz] 25 mg PO DAILY 03/13/18 Liraglutide [Victoza 2-Justin] 0.8 mg SQ DAILY 03/13/18 Lisinopril [Zestril] 20 mg PO DAILY 03/13/18 Meloxicam [Mobic] 15 mg PO DAILY 03/13/18 Omeprazole [Prilosec] 40 mg PO BID 03/13/18 Roflumilast [Daliresp] 500 mcg PO DAILY 03/13/18 Potassium Chloride [Klor-Con] 20 meq PO 07/14/19 Cephalexin [Keflex] 500 mg PO Q6 07/17/19 Surgical History: - - Lumbar laminectomy and fusion x 2, LLE surgery for clot retrieval with follow-up I&D x2 for infection. Psychiatric History: No pertinent psych hx Lives: With Family - Lives with her cousin. Smoking Status: Current every day smoker - 1-1.5 ppd cigarette tobacco usage Tobacco Use: Cigarettes Alcohol: None Drugs: None - *Family History Paternal History Items: Diabetes Maternal History Items: Diabetes, Heart Disease, Hypertension, - - History of brain aneurysms. Review of Systems Constitutional: Reports: Malaise, Weakness, Fatigue. Denies: Chills, Fever, Weight Change HEENT: Denies: Head Aches, Sinus Congestion, Sinus Drainage Cardiovascular: Denies: Chest Pain, Palpitations Respiratory: Denies: Cough, Shortness of breath at rest, Sputum production Gastrointestinal: Denies: Abdominal Pain, Nausea, Vomiting Genitourinary: Denies: Dysuria Musculoskeletal: Reports: Back Pain, Joint Pain. Denies: Joint Tenderness Skin: Reports: Skin Changes, Wounds. Denies: Rash Neurological: Reports: Numbness, Tingling. Denies: Focal weakness Psychiatric: Denies: Anxiety, Depression, Homicidal Ideations, Suicidal Ideations Hematologic/ Lymphatic: Reports: Easy Bruising, Easy Bleeding VTE Information - Inpt Only VTE Present on Admission: No VTE Mechan Device Prophylaxis: SCD's VTE Pharm Prophylaxis ordered?: No Reason prophylaxis not ordered:: Treatment Not Indicated - Pending INR upon admission, plan to hold Coumadin with heparin drip transition for operative intervention pending. Patient Problems: Active and Suspected Problems Diabetic foot infection (Acute) Subjective: Seated upright in the PCU bed, fatigued appearance, notes ongoing severe pain to the right foot. Objective: Physical Examination: General: awake, alert, oriented x 3 and cooperative, seated upright in the PCU bed in no apparent distress but notes ongoing right foot discomfort. Skin: normal color, turgor, no icterus, cyanosis except noted bilateral lower extremity venous stasis skin changes, right toe and foot erythema extending up to ankle with mild edema, tender to palpation, gangrenous appearing right great toe, wet appearing, foul odor. HEENT: AT/NC, EOMI, PERRLA, dry MM, no carotid bruits or JVD noted. Lungs: Diminished breath sounds laterally, greater bilateral bases, moderate effort, no rales, ronchi or wheezing. Heart: Regular rate and rhythm; no gallop, rub audible. Abdomen: soft, obese, NTTP, ND, normal BS, no HSM. Extremities: no cyanosis, clubbing, see skin, right primarily foot edema, skin changes as noted. Neurological: patient awake, alert, oriented x 3; cognitive function intact; pupils equally reactive to light and accomodation; cranial nerves II-XII grossly normal, moving all 4 extremities, no focal deficits, strength moderately global decrease secondary to acute presentation and complaints. Psychiatric: affect appears mildly irritable, notes uncomfortable, no acute evidence of depressive or anxiety feelings. - Physical Exam Vitals/I&O's: Vital Signs Temp Pulse Resp BP Pulse Ox 98.0 F 107 H 16 132/80 H 99 07/17/19 15:38 07/17/19 15:38 07/17/19 15:38 07/17/19 15:38 07/17/19 15:38 Oxygen Delivery Method Room Air Body Mass Index (BMI) 29.8 Finger Stick Blood Glucose 239 Current Medications Acetaminophen (Tylenol) 650 mg PO Q6H PRN PRN PRN Reason: Non-cardiac pain (4-10/10) Hydrocodone Bitart/Acetaminophen ([place]ay 5mg-325mg) 1 - 2 tablet PO Q4H PRN PRN PRN Reason: Pain Score 4-10/10 Al Hydroxide/Mg Hydroxide (Mylanta Ii) 15 - 30 ml PO Q4H PRN PRN PRN Reason: INDIGESTION Albuterol Sulfate (Ventolin Aerosols) 2.5 mg INHALATION Q2H PRN PRN PRN Reason: dyspnea, wheezing Albuterol/Ipratropium (Duoneb) 3 ml INHALATION Q6HWA.RT ARIA Famotidine (Pepcid) 20 mg PO BID ARIA Glucagon () 1 mg IM .X1 PRN PRN Reason: Hypoglycemia Guaifenesin (Robitussin) 20 ml PO Q4H PRN PRN PRN Reason: COUGH Hydralazine HCl (Apresoline Iv) 10 mg IV Q4H PRN PRN PRN Reason: SBP > 160 Piperacillin Sod/Tazobactam (Sod 3.375 gm/ Sodium Chloride) 50 mls @ 12.5 mls/hr IV Q8 ARIA Vancomycin IV Pharmacy to Dose (1 ea/ Sodium Chloride) 500 mls @ 250 mls/hr IV X1 PRN; Protocol PRN Reason: Rx to Dose Sodium Chloride () 1,000 mls @ 100 mls/hr IV .Q10H ARIA Stop: 07/18/19 01:04 Dextrose (Dextrose 10%-Water) 250 mls @ 999 mls/hr IV .Q16M PRN; Protocol PRN Reason: HYPOGLYCEMIA Insulin Glargine (Lantus (Bkc)) 10 units SC BID ARIA Insulin Human Lispro (Humalog Kwikpen (Bk)) 0 unit SC ACHS ARIA; Protocol Insulin Human Lispro (Humalog Kwikpen (Bkc)) 5 unit SC TIDAC ARIA Magnesium Hydroxide (Milk Of Magnesia) 30 ml PO DAILY PRN PRN Reason: Constipation Morphine Sulfate () 1 - 2 mg IV Q4H PRN PRN PRN Reason: Pain Score 1-10/10 Nicotine (Nicoderm Cq (Pbkc)) 21 mg TRANSDERM. DAILY PRN PRN Reason: Nicotine Craving Nitroglycerin (Nitrostat) 0.4 mg SUBLINGUAL Q5M PRN PRN Reason: CARDIAC/CHEST PAIN Ondansetron HCl (Zofran) 4 mg IV Q8H PRN PRN PRN Reason: NAUSEA/VOMITING Psyllium Hydrophilic Mucilloid (Metamucil) 1 packet PO DAILY PRN PRN PRN Reason: Constipation Senna/Docusate Sodium (Senokot-S, Donna-Colace) 2 tablet PO BID PRN PRN PRN Reason: Constipation Temazepam (Restoril) 15 mg PO QHS PRN PRN PRN Reason: INSOMNIA Throat Lozenges (Cepacol Sore Throat Lozenge) 1 lozenge MUCOUS MEM Q2H PRN PRN PRN Reason: Sore throat or cough Assessment/Plan All Active Problems Screen for colon cancer (Acute) Diabetic foot infection (Acute) The patient is a 68 y/o M w/ PMHx: Chronic pain syndrome s/p back surgery x 2, Hx BL LE DVT, Chronic COPD, HTN, HLD, Diabetes mellitus type II (HgbA1c 10%), OA, GERD, Tobacco use with recent ED evaluation on 07/14/19 with diabetic foot infection w/ toe injury several weeks prior to the R great toe, worsening, noted to be necrotic w/ skin sloughing, initiated per ED on oral keflex regimen with referral to Podiatry who now re-presents per Podiatry request, Dr. Lozano to the [facility] as direct admission on 07/17/19 with history of worsening appearance to the R great toe. 1. Right Great Diabetic Infected Necrotic Toe, Suspected Wet Gangrene with Celluitis: Evidence gangrene, turing into wet with odor, celluitis noted in the office with requested assist with direction admission. Will admit to MS, maintain on IV vanc and zosyn, will obtain Wound Cx, will obtain Wound MRSA PCR, obtain admission CBC and plan repeat CBC in AM, obtain SED and CRP, continue affected extremity elevation above heart when seated and in bed, monitor erythema outline with VS checks, obtain MRI without contrast to the R foot, obtain HERNESTO/PVR (LEAS) w/ arterial duplex lower extremity, Vanc and Zosyn initiation, Shah consultation, Infectious disease consultation. PRN pain, nausea regimen, offloading w/ NWB to affected extremity. PT/OT/CM consultations. 2. Diabetes mellitus type II, uncontrolled: Per discussion with podiatry hemoglobin A1c most recently 10% but unclear where this was obtained, last hemoglobin A1c noted in [facility] 06/30 7.6%, will obtain level to assure correct given plan for insulin initiation aced on current reported level, will request nutrition consultation for education and teaching, will initiate patient on low-dose Levemir, scheduled short acting with meals as well as Accu-Cheks with insulin sliding scale overlap. Holding metformin and Victoza. From review of records patient has been referred to endocrinology, Dr. Carson on 08/16/2019. 3. Chronic COPD: ATC duonebs, PRN albuterol, HOB, IS parameters. 4. PVD: Will plan transitioning from Coumadin as noted to heparin drip once clinically appropriate, continue statin therapy, BP regimen as well as diabetic interventions as noted given uncontrolled status. 5. Hypertension: Continue home regimen including diltiazem, hydrochlorothiazide, lisinopril, PRN hydralazine. 6. Hyperlipidemia: Continue home statin regimen. 7. History DVTs: We obtain INR level, hold Coumadin as likely planned operative intervention, once subtherapeutic INR transition to heparin drip for planned intervention per podiatry and possibly vascular surgery. 8. GERD: Famotidine. 9. BEATRICE: Noted in prior history although most recent assessment with endoscopy denied, closely monitor and repeat outpatient sleep study if appropriate. 10. Tobacco Abuse: History of 1 to 1.5 pack/day x 35 years, encouraged cessation, inpatient consultation per RT, NR if desired. 11. DVT prophylaxis: SCDs, as noted will obtain INR level upon presentation, hold Coumadin level and once INR less than 2 initiate heparin drip for planned intervention per podiatry and possibly vascular surgery. Code Visit Inpatient E&M: 22412 Init Hosp L3
[2019-07-17 16:10] LABS: Absolute Lymphocyte Count 2.45 X10^3/uL (0.83-4.51); Absolute Neutrophil Count 5.3 X10^3/uL (2.0-7.7); Basophil# 0.05 X10^3/uL; Basophil% 0.6 % (0-1); Eosinophils% 1.2 % (0-5); Hemoglobin 12.8 g/dL (13.0-16.5); Lymphocyte # 2.45 X10^3/ul (4.0); Lymphocyte % 28.7 % (19-41); Mean Corpuscular Hgb 29.2 pg (27.0-32.0); Mean Corpuscular Volume 91.3 fL (80-94); Mean Platelet Vol. 9.3 fl (6.2-12.0); Monocyte# 0.61 X10^3/uL; Monocyte% 7.1 % (0-10); NRBC Flagged by Analyzer 0 % (0-5); Neutrophil # 5.26 X10^3/uL (2.7-7.7); Neutrophil % 61.6 % (47-70); Platelet Count 346 K/mm3 (150-450); RBC Distribution Width CV 12.9 % (11.6-14.6); RBC Distribution Width SD 42.7 fl (35.1-43.9); Red Blood Count 4.38 M/mm3 (4.6-6.2); White Blood Count 8.5 K/mm3 (4.4-11.0)
[2019-07-17 16:23] LABS: International Normalized Ratio 2.6; Prothrombin Time (Protime)PT. 27.9 SECONDS (11.7-14.9)
[2019-07-17 16:26] LABS: Erythrocyte Sedimentation Rate 53 mm/hr (0-20)
[2019-07-17 16:44] VITALS: BMI 29.8
[2019-07-17 16:46] LABS: Hemoglobin A1c 13.3 % (4.2-6.3)
[2019-07-17 16:55] LABS: ALB/GLOB Ratio 0.8 RATIO (0.9-2.4); AST(SGOT) 11 U/L (15-37); Alanine Aminotransfer ALT/SGPT 22 U/L (16-61); Albumin, Serum 3.2 g/dL (3.2-5.0); Alkaline Phosphatase 111 U/L (45-117); Anion Gap 5 (5-15); BUN 8 mg/dL (7-18); BUN/Creat Ratio 9.7 RATIO (10-20); Chloride 105 mmol/L (98-107); Creatinine, Serum 0.82 mg/dL (0.70-1.30); EST Glomerular Filtration Rate 99 mL/min (>60); Est Glom Filt Rate - Afr Amer 120 mL/min (>60); Estimated Creatinine Clearance 94.38 ml/min; Globulin 4.2 g/dL (2.2-4.2); Glucose 233 mg/dL (74-106); Magnesium 1.9 mg/dL (1.6-2.6); Potassium 3.6 mmol/L (3.5-5.1); Protein, Total 7.4 g/dL (6.4-8.2); Sodium Level 135 mmol/L (136-145)
[2019-07-17 16:56] LABS: Magnesium 1.7 mg/dL (1.6-2.6)
--- NOTE | 2019-07-17 16:57 | PHA.PHARE_ITS ---
Consult Pharmacy has been consulted to manage selected antiobiotic: Vancomycin Type of Consult: New start Prior Doses of Antibiotics Received/Current Regimen: none Labs: Sodium 135 mmol/L (136-145) L 07/17/19 15:55 Potassium 3.6 mmol/L (3.5-5.1) 07/17/19 15:55 Chloride 105 mmol/L (98-107) 07/17/19 15:55 Carbon Dioxide 25.0 mmol/L (21.0-32.0) 07/17/19 15:55 Anion Gap 5 (5-15) 07/17/19 15:55 BUN 8 mg/dL (7-18) 07/17/19 15:55 Creatinine 0.82 mg/dL (0.70-1.30) 07/17/19 15:55 Est GFR (MDRD) Af Amer 120 mL/min (>60) 07/17/19 15:55 Est GFR (MDRD) Non-Af 99 mL/min (>60) 07/17/19 15:55 BUN/Creatinine Ratio 9.7 RATIO (10-20) L 07/17/19 15:55 Glucose 233 mg/dL (74-106) H 07/17/19 15:55 Weight used for dosin kg Estimated Creatinine Clearance: 90ml/min Goal Trough: 15-20 mcg/mL Pharmacy Plan for Drug Dosing: Pt to receive a loading dose of 25mg/kg of Vancomycin (2000mg) IV x1 on 07/17/19 at 1700. Initial recommendation based on weight and crcl is for pt to receive Vancomycin 2000mg IV q12h starting 07/18/19 at 0500. Trough to be drawn before t he 4th dose on 07/19/19 at 0430. Pharmacy Service will continue to monitor and adjust dosing as required. Follow-Up Labs: Trough Vancomycin - 07/19/19 at 0430
[2019-07-17 17:25] VITALS: O2SAT 98
[2019-07-17] MEDS: 0.9% Saline Lock 10 ML Syringe IV (17:35)
--- NOTE | 2019-07-17 18:02 | PCM.CONS.GEN ---
Reason for Consult Date of Consultation: 07/17/19 Reason for Consultation: Right 1st toe gangrene History of Present Illness: The patient is a 68 year old gentleman with hx of multiple medical problems including uncontrolled diabetes, tobacco cessation, DVT presented to our office this afternoon in which gangrene was found to the right 1st toe, turning into wet gangrene as site was necrotic, boggy, sloughing, drainage and maloder with localized cellulitis. Patient was seen in ER on 07/14/19, and was sent home with oral antibiotic Keflex. Patient was admitted for further evaluation and management of this. Patient relates to pain to the site, but does not relate to any fever, chills, nausea or vomiting. Past Medical History Past Medical History (Chronic Problems): Chronic Problems Lumbar spinal stenosis (Chronic) Obstructive sleep apnea (Chronic) Scabies infestation (Chronic) DVT (deep venous thrombosis) (Chronic) Tobacco abuse (Chronic) GERD (gastroesophageal reflux disease) (Chronic) Neuropathy (Chronic) Hypertension (Chronic) COPD (chronic obstructive pulmonary disease) (Chronic) Peripheral vascular disease (Chronic) Hyperlipidemia (Chronic) Erectile dysfunction (Chronic) Diabetes mellitus (Chronic) IDDM (insulin dependent diabetes mellitus) (Chronic) Allergies No Known Allergies Allergy (Verified 03/13/18 15:11) Home Medications: Ambulatory Orders Medication Instructions Recorded Diltiazem 180 mg PO DAILY 09/26/13 Gabapentin [Neurontin] 600 mg PO TID 09/26/13 Ranitidine [Zantac] 300 mg PO DAILY 09/26/13 Humalog 35 units SQ BID 11/06/15 Multivitamin [Daily Multiple 1 each PO DAILY 11/06/15 Vitamin] Warfarin [Coumadin] 8 mg PO DAILY@1700 11/06/15 Zolpidem Tartrate [Ambien] 10 mg PO QHS 11/06/15 metFORMIN HCl [Glucophage] 1,000 mg PO BIDCM 11/06/15 Potassium Chloride [K-Dur] 20 meq PO DAILYCM #30 tablet 11/15/15 Aspirin [Aspirin, Baby] 81 mg PO DAILY@0800 09/22/16 Atorvastatin Calcium [Lipitor] 40 mg PO DAILY 03/13/18 Hydrochlorothiazide [Hctz] 25 mg PO DAILY 03/13/18 Liraglutide [Victoza 2-Justin] 0.8 mg SQ DAILY 03/13/18 Lisinopril [Zestril] 20 mg PO DAILY 03/13/18 Meloxicam [Mobic] 15 mg PO DAILY 03/13/18 Omeprazole [Prilosec] 40 mg PO BID 03/13/18 Roflumilast [Daliresp] 500 mcg PO DAILY 03/13/18 Potassium Chloride [Klor-Con] 20 meq PO 07/14/19 Cephalexin [Keflex] 500 mg PO Q6 07/17/19 Surgical History: - - Lumbar laminectomy and fusion x 2, LLE surgery for clot retrieval with follow-up I&D x2 for infection. Psychiatric History: No pertinent psych hx Lives: With Family - Lives with her cousin. Smoking Status: Current every day smoker - 1-1.5 ppd cigarette tobacco usage Tobacco Use: Cigarettes Alcohol: None Drugs: None - *Family History Paternal History Items: Diabetes Maternal History Items: Diabetes, Heart Disease, Hypertension, - - History of brain aneurysms. Review of Systems Constitutional: Denies: Chills, Fever Cardiovascular: Denies: Chest Pain Respiratory: Denies: Shortness of Breath Gastrointestinal: Denies: Nausea, Vomiting Skin: Reports: Wounds Patient Problems: Active and Suspected Problems Diabetic foot infection (Acute) - Physical Exam Vitals/I&O's: Vital Signs Temp Pulse Resp BP Pulse Ox 98.0 F 107 H 16 132/80 H 98 07/17/19 15:38 07/17/19 15:38 07/17/19 15:38 07/17/19 15:38 07/17/19 17:25 Oxygen Delivery Method Room Air Weight: 97.1 kg Body Mass Index (BMI) 29.8 Finger Stick Blood Glucose 239 General: Alert, Oriented x3, Cooperative, No apparent distress Extremities: Diminished Peripheral Pulses - to foot/ankle bilateral, - - There is gangrene necrosis to the right 1st toe which is boggy and turning into wet gangrene, there is maloder as well, there is localized cellulitis to the 1st toe with some serous drainage, no purulence, there is no streaking, patient relates to pain the right 1st toe, there are no other open lesions or areas of infection bilateral foot/ankle. Pedal pulses nonpalpable, difficult to find via handheld ultrasound doppler bilateral foot/ankle, no other areas of gangrene bilateral foot/ankle. Sensation is diminished consistent with peripheral neuropathy. No m/s POP or pain on ROM to the foot/ankle bilateral. Musculoskeletal: No Tenderness to Palpation of Joints or Extremities Psych/Mental Status: Appropriate, Alert and oriented to time, place, person, mood and affect Laboratory Results 07/17/19 15:55: WBC 8.5, RBC 4.38 L, Hgb 12.8 L, Hct 40.0, MCV 91.3, MCH 29.2, MCHC 32.0, RDW Std Deviation 42.7, RDW Coeff of Estrada 12.9, Plt Count 346, MPV 9.3, Immature Gran % (Auto) 0.800, Neut % (Auto) 61.6, Lymph % (Auto) 28.7, [place] % (Auto) 7.1, Eos % (Auto) 1.2, Baso % (Auto) 0.6, Absolute Neuts (auto) 5.3, Absolute Lymphs (auto) 2.45, Nucleated RBC % 0, ESR 53 H 07/17/19 15:55: Sodium 135 L, Potassium 3.6, Chloride 105, Carbon Dioxide 25.0, Anion Gap 5, BUN 8, Creatinine 0.82, Estim Creat Clear Calc 94.38, Est GFR (MDRD) Af Amer 120, Est GFR (MDRD) Non-Af 99, BUN/Creatinine Ratio 9.7 L, Glucose 233 H, Calcium 9.0, Magnesium 1.9, Total Bilirubin 0.30, AST 11 L, ALT 22, Alkaline Phosphatase 111, C-React Prot Ext Range 24.40 H, Total Protein 7.4, Albumin 3.2, Globulin 4.2, Albumin/Globulin Ratio 0.8 L 07/17/19 15:55: PT 27.9 H, INR 2.6 07/17/19 15:55: Magnesium 1.7 07/17/19 15:55: Hemoglobin A1c 13.3 H 07/17/19 17:30: Blood Type Pending Current Medications Acetaminophen (Tylenol) 650 mg PO Q6H PRN PRN PRN Reason: Non-cardiac pain (4-04/26) Hydrocodone Bitart/Acetaminophen (Pipestem 5mg-325mg) 1 - 2 tablet PO Q4H PRN PRN PRN Reason: Pain Score 4-04/26 Al Hydroxide/Mg Hydroxide (Mylanta Ii) 15 - 30 ml PO Q4H PRN PRN PRN Reason: INDIGESTION Albuterol Sulfate (Ventolin Aerosols) 2.5 mg INHALATION Q2H PRN PRN PRN Reason: dyspnea, wheezing Albuterol/Ipratropium (Duoneb) 3 ml INHALATION Q6HWA.RT ARIA Famotidine (Pepcid) 20 mg PO BID ARIA Glucagon () 1 mg IM .X1 PRN PRN Reason: Hypoglycemia Guaifenesin (Robitussin) 20 ml PO Q4H PRN PRN PRN Reason: COUGH Hydralazine HCl (Apresoline Iv) 10 mg IV Q4H PRN PRN PRN Reason: SBP > 160 Piperacillin Sod/Tazobactam (Sod 3.375 gm/ Sodium Chloride) 50 mls @ 12.5 mls/hr IV Q8 ARIA Vancomycin IV Pharmacy to Dose (1 ea/ Sodium Chloride) 500 mls @ 250 mls/hr IV X1 PRN; Protocol PRN Reason: Rx to Dose Sodium Chloride () 1,000 mls @ 100 mls/hr IV .Q10H ARIA Stop: 07/18/19 01:04 Dextrose (Dextrose 10%-Water) 250 mls @ 999 mls/hr IV .Q16M PRN; Protocol PRN Reason: HYPOGLYCEMIA Vancomycin HCl 2,000 mg/ (Sodium Chloride) 540 mls @ 250 mls/hr IV X1 ONE Stop: 07/17/19 19:09 Vancomycin HCl 2,000 mg/ (Sodium Chloride) 540 mls @ 250 mls/hr IV Q12H [facility] Insulin Glargine (Lantus (Bkc)) 20 units SC BID [facility] Insulin Human Lispro (Humalog Kwikpen (Bkc)) 0 unit SC ACHS ARIA; Protocol Insulin Human Lispro (Humalog Kwikpen (Bkc)) 5 unit SC TIDAC [facility] Magnesium Hydroxide (Milk Of Magnesia) 30 ml PO DAILY PRN PRN Reason: Constipation Morphine Sulfate () 1 - 2 mg IV Q4H PRN PRN PRN Reason: Pain Score 1-10/10 Nicotine (Nicoderm Cq (Pbkc)) 21 mg TRANSDERM. DAILY PRN PRN Reason: Nicotine Craving Nitroglycerin (Nitrostat) 0.4 mg SUBLINGUAL Q5M PRN PRN Reason: CARDIAC/CHEST PAIN Ondansetron HCl (Zofran) 4 mg IV Q8H PRN PRN PRN Reason: NAUSEA/VOMITING Psyllium Hydrophilic Mucilloid (Metamucil) 1 packet PO DAILY PRN PRN PRN Reason: Constipation Senna/Docusate Sodium (Senokot-S, Donna-Colace) 2 tablet PO BID PRN PRN PRN Reason: Constipation Sodium Chloride () 10 - 40 ml IV UD PRN PRN Reason: SALINE FLUSH Last Admin: 07/17/19 17:35 Dose: 20 ml Documented by: Temazepam (Restoril) 15 mg PO QHS PRN PRN PRN Reason: INSOMNIA Throat Lozenges (Cepacol Sore Throat Lozenge) 1 lozenge MUCOUS MEM Q2H PRN PRN PRN Reason: Sore throat or cough Assessment/Plan All Active Problems Screen for colon cancer (Acute) Diabetic foot infection (Acute) Wet gangrene right 1st toe with cellulitis Concern for underlying osteomyelitis right 1st toe Uncontrolled diabetes Tobacco dependence Hx of DVT on anticoagulation Appreciate medicine team assistance with admission. MRI has been ordered for further evaluation. I did speak with Dr. Hargrove from vascular surgery and he will see patient, further vascular testing has been ordered. We (podiatry) will plan to proceed with debridement of the nonviable necrotic tissue in OR likely tomorrow morning. Otherwise patient has been started on board spectrum IV antibiotics, culture has been ordered. Uncontrolled diabetes and further medical management per medicine team, again greatly appreciate medicine teams assistance. Also recommended tobacco cessation to patient, and reviewed importance of proper blood sugar control to aid healing and help optimize foot/ankle health. Podiatry will continue to follow closely.
--- NOTE | 2019-07-17 19:10 | RAD_ITS ---
STUDY: X-RAY - RIGHT FOOT CLINICAL: Male, 68 years old. GANGRENE RIGHT FOOT 1ST TOE TECHNIQUE: 3 view(s) of the foot. COMPARISON: 07/14/2019. FINDINGS: Subtle abnormal appearance of the distal phalanx of the great toe especially seen on the lateral view, suggestive of osteolysis likely from osteomyelitis. No other changes or acute abnormalities. Degenerative changes of the midfoot. Moderate plantar spur. Calcifications of the arteries across the ankle consistent with diabetes. No definite soft tissue air. RAD/Foot min 3 Views IMPRESSION: Irregularities of the first distal phalanx which are indeterminate and subtle but could represent osteomyelitis. Electronically Signed: Samuel Christina MD at 20:46 EST , Service support ,
[2019-07-17] MEDS: 0.9% Normal Saline 1,000 ML 100 ML IV (19:50)
[2019-07-17 21:14] VITALS: BP 132/74; PULSE 102; RESP 18; TEMP 37.1; O2SAT 97
[2019-07-17 21:24] VITALS: BP 132/74; PULSE 102; RESP 148; TEMP 37.1; O2SAT 97
[2019-07-17 21:39] VITALS: BP 133/70; PULSE 102; RESP 18; TEMP 37.1; O2SAT 96
[2019-07-17 22:08] LABS: M R Staph aureus DNA By PCR Negative (Negative); Probe Check PASS; Specimen Processing Control PASS; Staph aureus DNA By PCR NEGATIVE (Negative)
[2019-07-17 22:29] VITALS: BP 135/72; PULSE 102; RESP 18; TEMP 37; O2SAT 97
[2019-07-17] MEDS: Famotidine 20 MG Tablet PO (22:44)
[2019-07-17 23:09] LABS: Glucose 332 mg/dL (74-106)
[2019-07-17] MEDS: Insulin Lispro 100 UNIT/ML INSULN.PEN SC (23:35)
[2019-07-18] VITALS (18 sets, daily range): BP systolic 99–147; BP diastolic 69–89; PULSE 82–108; RESP 16–20; TEMP 36.4–37.1; O2SAT 93–98; BMI 29.9
[2019-07-18 00:10] LABS: Bedside Glucose > 500 mg/dL (70-110)
[2019-07-18 02:38] LABS: Absolute Lymphocyte Count 2.27 X10^3/uL (0.83-4.51); Absolute Neutrophil Count 3.1 X10^3/uL (2.0-7.7); Basophil# 0.03 X10^3/uL; Basophil% 0.5 % (0-1); Eosinophil# 0.13 X10^3/uL; Eosinophils% 2.1 % (0-5); Hematocrit 34.9 % (40-54); Hemoglobin 11.2 g/dL (13.0-16.5); Lymphocyte # 2.27 X10^3/ul (4.0); Lymphocyte % 37.2 % (19-41); Mean Corp Hgb Conc 32.1 g/dL (32-36); Mean Corpuscular Hgb 29.2 pg (27.0-32.0); Mean Corpuscular Volume 91.1 fL (80-94); Mean Platelet Vol. 9.4 fl (6.2-12.0); Monocyte# 0.55 X10^3/uL; NRBC Flagged by Analyzer 0 % (0-5); Neutrophil % 50.9 % (47-70); Platelet Count 319 K/mm3 (150-450); RBC Distribution Width CV 12.9 % (11.6-14.6); RBC Distribution Width SD 43.1 fl (35.1-43.9); Red Blood Count 3.83 M/mm3 (4.6-6.2); White Blood Count 6.1 K/mm3 (4.4-11.0)
[2019-07-18 02:43] LABS: Prothrombin Time (Protime)PT. 22.5 SECONDS (11.7-14.9)
[2019-07-18 02:46] LABS: Anion Gap 8 (5-15); BUN 10 mg/dL (7-18); BUN/Creat Ratio 12.8 RATIO (10-20); Calcium,Total 8.4 mg/dL (8.5-10.1); Chloride 106 mmol/L (98-107); Creatinine, Serum 0.78 mg/dL (0.70-1.30); EST Glomerular Filtration Rate 105 mL/min (>60); Est Glom Filt Rate - Afr Amer 128 mL/min (>60); Estimated Creatinine Clearance 77.39 ml/min; Glucose 307 mg/dL (74-106); Potassium 3.7 mmol/L (3.5-5.1); Sodium Level 138 mmol/L (136-145)
[2019-07-18] MEDS: Phytonadione (Vit K1) 5 MG TABLET PO (03:43)
[2019-07-18] MEDS: Insulin Lispro 100 UNIT/ML INSULN.PEN SC ×5 (03:46→21:27)
[2019-07-18 03:51] LABS: Bedside Glucose 310 mg/dL (70-110)
--- NOTE | 2019-07-18 05:55 | EKG12_ITS ---
Test Reason : AM EKG Blood Pressure : / mmHG Vent. Rate : 102 BPM Atrial Rate : 102 BPM P-R Int : 174 ms QRS Dur : 080 ms QT Int : 338 ms P-R-T Axes : 037 000 017 degrees QTc Int : 440 ms Sinus tachycardia Inferior infarct , age undetermined Abnormal ECG No previous ECGs available Confirmed by EVARISTO CHAPA, JORDAN ([id number]), social media editor STANISLAV OVIEDO ([id number]) on 07/24/2019 9:22:24 AM Referred By: BANDAR Confirmed By:JORDAN LOERA MD
--- NOTE | 2019-07-18 05:55 | RAD_ITS ---
STUDY: X-RAY CHEST REASON FOR EXAM: Male, 68 years old. having foot surgery today for gangrene 1st toe -- pre-op -- h/o COPD TECHNIQUE: AP COMPARISON: 09/25/2013 FINDINGS: The lungs are clear and expanded. There is no demonstrated pleural abnormality. Normal size heart. Normal mediastinum and thu. Normal visualized pulmonary arteries. Normal visualized aortic arch and descending thoracic aorta. There are diffuse degenerative changes of the visualized thoracic spine. Normal visualized ribs, clavicles, and shoulders. There is no demonstrated abnormality of the visualized soft tissue structures of the upper abdomen. RAD/Chest 1 View (Portable) IMPRESSION: No acute cardiopulmonary process. Electronically Signed: Sky Daniels MD (Brooks) at 13:25 EST , Service support ,
[2019-07-18] MEDS: Ipratropium/Albuterol Sulfate 3 ML AMPUL.NEB INHALATION ×3 (06:58→21:16)
[2019-07-18 08:30] LABS: Bedside Glucose 212 mg/dL (70-110)
--- NOTE | 2019-07-18 10:00 | BON_PTH ---
PATIENT: RAPHAEL HADDAD LOC: [facility] U#:[id number] AGE/SX: 68/M ROOM: [facility] RE07/17/[address]: Dr. Cami Nance MD : [id number] BED: 1 DIS: 07/25/2019 SPEC #: [id number] RECD: 07/19/19 09:16 STATUS: SOUEllen REQ #: [id number] MATIAS: 07/18/19 10:[address]: Jose Cruz Barney DEPT: SURGICAL PATHOLOGY RECD BY: Mert Burr ENTERED: 07/19/19 11:17 SP TYPE: Bone OTHR DR: MD Dr. Jose Barger MD Dr. Jeffrey Wunning, DPM MD Dr. Saurabh Wadsworth Chi, MD Tissues: A - Bone of foot, NOS B - Bone of foot, NOS Procedures: Decalcification bone/plaque Surgery Specimen Level IV Comments: @ Ordering doctor for DEC edited from to @ by ACE at 07/19/19 111 @ Ordering doctor for SUIII edited from to @ by ACE at 07/19/19 1118 @ Submitting doctor edited from to @ by ACE at 07/19/19 1118 HEADER OPERATION: Amputation toe/foot PRE-OP DIAGNOSIS: Wet gangrene right first toe with cellulitis TISSUE SUBMITTED: A - Right hallux bone and tissue, B - Clearance fragment right first metatarsal MICROSCOPIC DIAGNOSIS A. Right hallux bone and tissue, excision: Skin and soft tissue with ulceration and associated acute and chronic inflammation and granulation. Underlying bone with reparative and reactive change. No evidence of acute osteomyelitis. B. Clearance fragment first metatarsal, biopsy: No evidence of osteomyelitis. AM:valencia 07/25/19 MICROSCOPIC DESCRIPTION Slides are reviewed. GROSS DESCRIPTION A - Received in fixative is one container labeled with the patient's name and designated right hallux bone and tissue. The specimen consists of a portion of bone measuring 6.5 x 3 x 3 cm. The plantar surface of the toe shows extensive area of ulceration with brownish-black area of necrosis. The nail appears unremarkable. Chief Administrative Officer sections are submitted in three cassettes as follows: 1 - area of ulceration, 2 & 3 - bone after decalcification. B - Received in fixative is one container labeled with the patient's name and designated clearance fragment right first metatarsal. The specimen consists of a piece of bone measuring 0.5 x 0.1 x 0.1 cm. The entire specimen is submitted in one cassette after decalcification. / LEVON:valencia 07/19/19 TC:2 CPT: 08113 x2, 26160 x2
[2019-07-18 10:06] LABS: International Normalized Ratio 1.8; Prothrombin Time (Protime)PT. 20.6 SECONDS (11.7-14.9)
[2019-07-18] MEDS: Lactated Ringers 1,000 ML 100 ML IV (10:41)
[2019-07-18] MEDS: Bupivacaine Mpf 0.5% 30 ML VIAL (11:05)
--- NOTE | 2019-07-18 11:25 | PN_ITS ---
<Umang Padilla - Last Filed: 07/18/19 11:25> Patient Problems: Active and Suspected Problems Diabetic foot infection (Acute) Reason for Visit: R great toe wound Subjective: No fever/chills overnight. No pain in affected leg - however he has no feeling in this toe at all. No prior amputations. No prior edocrinologist but he states he was planning to see Dr. Carson as o/p. 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 Going to OR with Dr. Lozano today. Vitals/I&O's: Vital Signs Temp Pulse Resp BP Pulse Ox 97.9 F 103 H 16 136/89 H 96 07/18/19 10:35 07/18/19 10:35 07/18/19 10:35 07/18/19 10:35 07/18/19 10:35 Oxygen Delivery Method Room Air Weight: 215 lb 9.793 oz Body Mass Index (BMI) 30.0 Finger Stick Blood Glucose 239 Intake and Output for Last 24 Hours 07/16/19 07/17/19 07/18/19 23:59 23:59 23:59 Intake Total 1674.59 / 1674.59 1825.41 / 1825.41 Output Total 375 / 375 800 / 800 Balance 1299.59 / 1299.59 1025.41 / 1025.41 General: Alert, Oriented x3, Cooperative HEENT: Atraumatic, PERRLA, EOMI, Normocephalic Neck: Supple, No JVD, Negative Carotid Bruits Lungs: Clear to auscultation, Normal air movement Cardiovascular: Regular rate, No murmurs Abdomen: Bowel Sounds Present, Soft, Non Tender Extremities: No edema, Capillary Refill Less than 3 Seconds, Diminished Peripheral Pulses Skin: No rashes, No breakdown Musculoskeletal: No Tenderness to Palpation of Joints or Extremities, - - right great toe wet gangrene Neurological: Cranial nerves II-XII grossly intact Psych/Mental Status: Normal Affect, Appropriate, Alert and oriented to time, place, person, mood and affect Laboratory Results 07/17/19 15:55: WBC 8.5, RBC 4.38 L, Hgb 12.8 L, Hct 40.0, MCV 91.3, MCH 29.2, MCHC 32.0, RDW Std Deviation 42.7, RDW Coeff of Estrada 12.9, Plt Count 346, MPV 9.3, Immature Gran % (Auto) 0.800, Neut % (Auto) 61.6, Lymph % (Auto) 28.7, Glenn % (Auto) 7.1, Eos % (Auto) 1.2, Baso % (Auto) 0.6, Absolute Neuts (auto) 5.3, Absolute Lymphs (auto) 2.45, Nucleated RBC % 0, ESR 53 H 07/17/19 15:55: Sodium 135 L, Potassium 3.6, Chloride 105, Carbon Dioxide 25.0, Anion Gap 5, BUN 8, Creatinine 0.82, Estim Creat Clear Calc 94.38, Est GFR (MDRD) Af Amer 120, Est GFR (MDRD) Non-Af 99, BUN/Creatinine Ratio 9.7 L, Glucose 233 H, Calcium 9.0, Magnesium 1.9, Total Bilirubin 0.30, AST 11 L, ALT 22, Alkaline Phosphatase 111, C-React Prot Ext Range 24.40 H, Total Protein 7.4, Albumin 3.2, Globulin 4.2, Albumin/Globulin Ratio 0.8 L 07/17/19 15:55: PT 27.9 H, INR 2.6 07/17/19 15:55: Magnesium 1.7 07/17/19 15:55: Hemoglobin A1c 13.3 H 07/17/19 17:30: Blood Type B POSITIVE 07/17/19 20:20: S.aureus Protein A PCR NEGATIVE, MRSA (PCR) Negative 07/17/19 22:38: POC Glucose > 500 H* 07/17/19 22:54: Glucose 332 H 07/18/19 02:16: WBC 6.1, RBC 3.83 L, Hgb 11.2 L, Hct 34.9 L, MCV 91.1, MCH 29.2, MCHC 32.1, RDW Std Deviation 43.1, RDW Coeff of Estrada 12.9, Plt Count 319, MPV 9.4, Immature Gran % (Auto) 0.300, Neut % (Auto) 50.9, Lymph % (Auto) 37.2, Glenn % (Auto) 9.0, Eos % (Auto) 2.1, Baso % (Auto) 0.5, Absolute Neuts (auto) 3.1, Absolute Lymphs (auto) 2.27, Nucleated RBC % 0 01/01/20 02:16: Sodium 138, Potassium 3.7, Chloride 106, Carbon Dioxide 24.0, Anion Gap 8, BUN 10, Creatinine 0.78, Estim Creat Clear Calc 77.39, Est GFR (MDRD) Af Amer 128, Est GFR (MDRD) Non-Af 105, BUN/Creatinine Ratio 12.8, Glucose 307 H, Calcium 8.4 L 07/18/19 02:16: PT 22.5 H, INR 2.0 07/18/19 03:45: POC Glucose 310 H 07/18/19 08:04: POC Glucose 212 H 07/18/19 09:45: PT 20.6 H, INR 1.8 Current Medications Acetaminophen (Tylenol) 650 mg PO Q6H PRN PRN PRN Reason: Non-cardiac pain (4-10/10) Hydrocodone Bitart/Acetaminophen ([place] 5mg-325mg) 1 - 2 tablet PO Q4H PRN PRN PRN Reason: Pain Score 4-10/10 Al Hydroxide/Mg Hydroxide (Mylanta Ii) 15 - 30 ml PO Q4H PRN PRN PRN Reason: INDIGESTION Albuterol Sulfate (Ventolin Aerosols) 2.5 mg INHALATION Q2H PRN PRN PRN Reason: dyspnea, wheezing Albuterol/Ipratropium (Duoneb) 3 ml INHALATION Q6HWA.RT [facility] Last Admin: 07/18/19 06:58 Dose: 3 ml Documented by: Famotidine (Pepcid) 20 mg PO BID [facility] Last Admin: 07/18/19 09:58 Dose: Not Given Documented by: Glucagon () 1 mg IM .X1 PRN PRN Reason: Hypoglycemia Guaifenesin (Robitussin) 20 ml PO Q4H PRN PRN PRN Reason: COUGH Hydralazine HCl (Apresoline Iv) 10 mg IV Q4H PRN PRN PRN Reason: SBP > 160 Piperacillin Sod/Tazobactam (Sod 3.375 gm/ Sodium Chloride) 50 mls @ 12.5 mls/hr IV Q8 [facility] Last Infusion: 07/18/19 10:29 Dose: Infused Documented by: Vancomycin IV Pharmacy to Dose (1 ea/ Sodium Chloride) 500 mls @ 250 mls/hr IV X1 PRN; Protocol PRN Reason: Rx to Dose Dextrose (Dextrose 10%-Water) 250 mls @ 999 mls/hr IV .Q16M PRN; Protocol PRN Reason: HYPOGLYCEMIA Vancomycin HCl 2,000 mg/ (Sodium Chloride) 540 mls @ 250 mls/hr IV Q12H [facility] Last Infusion: 07/18/19 07:57 Dose: Infused Documented by: Lactated Ringer's () 1,000 mls @ 100 mls/hr IV .Q10H [facility] Last Admin: 07/18/19 10:41 Dose: 100 mls/hr Documented by: Insulin Glargine (Lantus (Bk)) 20 units SC BID [facility] Last Admin: 07/18/19 09:59 Dose: 20 units Documented by: Insulin Human Lispro (Humalog Kwikpen ([facility])) 5 unit SC TIDAC [facility] Last Admin: 07/18/19 10:29 Dose: Not Given Documented by: Insulin Human Lispro (Humalog Kwikpen (Bk)) 0 unit SC Q4H [facility]; Protocol Last Admin: 07/18/19 08:24 Dose: Not Given Documented by: Magnesium Hydroxide (Milk Of Magnesia) 30 ml PO DAILY PRN PRN Reason: Constipation Morphine Sulfate () 1 - 2 mg IV Q4H PRN PRN PRN Reason: Pain Score 1-10/10 Nicotine (Nicoderm Cq (Pbkc)) 21 mg TRANSDERM. DAILY PRN PRN Reason: Nicotine Craving Nitroglycerin (Nitrostat) 0.4 mg SUBLINGUAL Q5M PRN PRN Reason: CARDIAC/CHEST PAIN Ondansetron HCl (Zofran) 4 mg IV Q8H PRN PRN PRN Reason: NAUSEA/VOMITING Psyllium Hydrophilic Mucilloid (Metamucil) 1 packet PO DAILY PRN PRN PRN Reason: Constipation Senna/Docusate Sodium (Senokot-S, Donna-Colace) 2 tablet PO BID PRN PRN PRN Reason: Constipation Sodium Chloride () 10 - 40 ml IV UD PRN PRN Reason: SALINE FLUSH Last Admin: 07/17/19 17:35 Dose: 20 ml Documented by: Temazepam (Restoril) 15 mg PO QHS PRN PRN PRN Reason: INSOMNIA Throat Lozenges (Cepacol Sore Throat Lozenge) 1 lozenge MUCOUS MEM Q2H PRN PRN PRN Reason: Sore throat or cough STROKE Vital Signs/Narrative: Vital Signs Temp Pulse Resp BP Pulse Ox 07/18/19 10:35 97.9 F 103 H 16 136/89 H 96 07/18/19 10:00 98.4 F 108 H 18 147/86 H 98 Medical Necessity - Tobacco Use Smoking Status: Current every day smoker Tobacco Use: Cigarettes Assessment/Plan All Active Problems Screen for colon cancer (Acute) Diabetic foot infection (Acute) 1. Wet gangrene right great toe-podiatry following, going for amputation today. Needs PVR study. Continue vancomycin. Complicated by poorly controlled DM, tobacco abuse, suspected PAD. Decreased peripheral pulses. ESR 53, CRP 24.4. Afebrile, no leukocytosis. 2. Uncontrolled type 2 diabetes-A1c 13.3. Referral to Dr. Carson at [place]. 3. COPD-no acute exacerbation-PRN aerosols 4. GERD - PPI 5. Hypertension - somewhat elevated, trend. 6. Hyperlipidemia - hld 7. History of GGVw-Tkdgfwia-ntkikcmt total 4 units FFP for surgery. 8. Mild normocytic anemia - AM cbc. DVT ppx: heparin, resume coumadin when appropriate. [place] planning - PTOT. Possible SNF placement. This patient was seen by Umang Padilla PA-C under the supervision of Dr. Gutierrez <Jose Gutierrez - Last Filed: 07/18/19 12:28> Vitals/I&O's: Vital Signs Temp Pulse Resp BP Pulse Ox 98.4 F 100 18 115/75 93 07/18/19 12:13 07/18/19 12:13 07/18/19 12:13 07/18/19 12:13 07/18/19 12:13 Oxygen Delivery Method Room Air Weight: 97.8 kg Body Mass Index (BMI) 30.0 Finger Stick Blood Glucose 239 Intake and Output for Last 24 Hours 07/16/19 07/17/19 07/18/19 23:59 23:59 23:59 Intake Total 1674.59 / 1674.59 3025.41 / 3025.41 Output Total 375 / 375 1100 / 1100 Balance 1299.59 / 1299.59 1925.41 / 1925.41 Laboratory Results 07/17/19 15:55: WBC 8.5, RBC 4.38 L, Hgb 12.8 L, Hct 40.0, MCV 91.3, MCH 29.2, MCHC 32.0, RDW Std Deviation 42.7, RDW Coeff of Estrada 12.9, Plt Count 346, MPV 9.3, Immature Gran % (Auto) 0.800, Neut % (Auto) 61.6, Lymph % (Auto) 28.7, Glenn % (Auto) 7.1, Eos % (Auto) 1.2, Baso % (Auto) 0.6, Absolute Neuts (auto) 5.3, Absolute Lymphs (auto) 2.45, Nucleated RBC % 0, ESR 53 H 07/17/19 15:55: Sodium 135 L, Potassium 3.6, Chloride 105, Carbon Dioxide 25.0, Anion Gap 5, BUN 8, Creatinine 0.82, Estim Creat Clear Calc 94.38, Est GFR (MDRD) Af Amer 120, Est GFR (MDRD) Non-Af 99, BUN/Creatinine Ratio 9.7 L, Glucose 233 H, Calcium 9.0, Magnesium 1.9, Total Bilirubin 0.30, AST 11 L, ALT 22, Alkaline Phosphatase 111, C-React Prot Ext Range 24.40 H, Total Protein 7.4, Albumin 3.2, Globulin 4.2, Albumin/Globulin Ratio 0.8 L 07/17/19 15:55: PT 27.9 H, INR 2.6 07/17/19 15:55: Magnesium 1.7 07/17/19 15:55: Hemoglobin A1c 13.3 H 07/17/19 17:30: Blood Type B POSITIVE 07/17/19 20:20: S.aureus Protein A PCR NEGATIVE, MRSA (PCR) Negative 07/17/19 22:38: POC Glucose > 500 H* 07/17/19 22:54: Glucose 332 H 07/18/19 02:16: WBC 6.1, RBC 3.83 L, Hgb 11.2 L, Hct 34.9 L, MCV 91.1, MCH 29.2, MCHC 32.1, RDW Std Deviation 43.1, RDW Coeff of Estrada 12.9, Plt Count 319, MPV 9.4, Immature Gran % (Auto) 0.300, Neut % (Auto) 50.9, Lymph % (Auto) 37.2, Glenn % (Auto) 9.0, Eos % (Auto) 2.1, Baso % (Auto) 0.5, Absolute Neuts (auto) 3.1, Absolute Lymphs (auto) 2.27, Nucleated RBC % 0 07/18/19 02:16: Sodium 138, Potassium 3.7, Chloride 106, Carbon Dioxide 24.0, Anion Gap 8, BUN 10, Creatinine 0.78, Estim Creat Clear Calc 77.39, Est GFR (MDRD) Af Amer 128, Est GFR (MDRD) Non-Af 105, BUN/Creatinine Ratio 12.8, Glucose 307 H, Calcium 8.4 L 07/18/19 02:16: PT 22.5 H, INR 2.0 07/18/19 03:45: POC Glucose 310 H 07/18/19 08:04: POC Glucose 212 H 07/18/19 09:45: PT 20.6 H, INR 1.8 Current Medications Acetaminophen (Tylenol) 650 mg PO Q6H PRN PRN PRN Reason: Non-cardiac pain (4-10/10) Hydrocodone Bitart/Acetaminophen ([place] 5mg-325mg) 1 - 2 tablet PO Q4H PRN PRN PRN Reason: Pain Score 4-10/10 Al Hydroxide/Mg Hydroxide (Mylanta Ii) 15 - 30 ml PO Q4H PRN PRN PRN Reason: INDIGESTION Albuterol Sulfate (Ventolin Aerosols) 2.5 mg INHALATION Q2H PRN PRN PRN Reason: dyspnea, wheezing Albuterol/Ipratropium (Duoneb) 3 ml INHALATION Q6HWA.RT [facility] Last Admin: 07/18/19 06:58 Dose: 3 ml Documented by: Atorvastatin Calcium (Lipitor) 40 mg PO QHS [facility] Diltiazem HCl (Cardizem Cd) 180 mg PO DAILY [facility] Famotidine (Pepcid) 20 mg PO BID [facility] Last Admin: 07/18/19 09:58 Dose: Not Given Documented by: Gabapentin (Neurontin) 600 mg PO TID [facility] Glucagon () 1 mg IM .X1 PRN PRN Reason: Hypoglycemia Guaifenesin (Robitussin) 20 ml PO Q4H PRN PRN PRN Reason: COUGH Hydralazine HCl (Apresoline Iv) 10 mg IV Q4H PRN PRN PRN Reason: SBP > 160 Piperacillin Sod/Tazobactam (Sod 3.375 gm/ Sodium Chloride) 50 mls @ 12.5 mls/hr IV Q8 [facility] Last Infusion: 07/18/19 10:29 Dose: Infused Documented by: Vancomycin IV Pharmacy to Dose (1 ea/ Sodium Chloride) 500 mls @ 250 mls/hr IV X1 PRN; Protocol PRN Reason: Rx to Dose Dextrose (Dextrose 10%-Water) 250 mls @ 999 mls/hr IV .Q16M PRN; Protocol PRN Reason: HYPOGLYCEMIA Vancomycin HCl 2,000 mg/ (Sodium Chloride) 540 mls @ 250 mls/hr IV Q12H [facility] Last Infusion: 07/18/19 07:57 Dose: Infused Documented by: Lactated Ringer's () 1,000 mls @ 100 mls/hr IV .Q10H [facility] Last Infusion: 07/18/19 12:21 Dose: Infused Documented by: Insulin Glargine (Lantus (Bkc)) 20 units SC BID [facility] Last Admin: 07/18/19 09:59 Dose: 20 units Documented by: Insulin Human Lispro (Humalog Kwikpen (Bkc)) 5 unit SC TIDAC [facility] Last Admin: 07/18/19 10:29 Dose: Not Given Documented by: Insulin Human Lispro (Humalog Kwikpen (Bkc)) 0 unit SC Q4H [facility]; Protocol Last Admin: 07/18/19 08:24 Dose: Not Given Documented by: Lisinopril (Zestril) 20 mg PO DAILY [facility] Magnesium Hydroxide (Milk Of Magnesia) 30 ml PO DAILY PRN PRN Reason: Constipation Morphine Sulfate () 1 - 2 mg IV Q4H PRN PRN PRN Reason: Pain Score 1-10/10 Nicotine (Nicoderm Cq (Pbkc)) 21 mg TRANSDERM. DAILY PRN PRN Reason: Nicotine Craving Nitroglycerin (Nitrostat) 0.4 mg SUBLINGUAL Q5M PRN PRN Reason: CARDIAC/CHEST PAIN Ondansetron HCl (Zofran) 4 mg IV Q8H PRN PRN PRN Reason: NAUSEA/VOMITING Pantoprazole Sodium (Protonix) 40 mg PO DAILY [facility] Potassium Chloride (K-Dur) 20 meq PO TIDCM [facility] Psyllium Hydrophilic Mucilloid (Metamucil) 1 packet PO DAILY PRN PRN PRN Reason: Constipation Senna/Docusate Sodium (Senokot-S, Donna-Colace) 2 tablet PO BID PRN PRN PRN Reason: Constipation Sodium Chloride () 10 - 40 ml IV UD PRN PRN Reason: SALINE FLUSH Last Admin: 07/17/19 17:35 Dose: 20 ml Documented by: Temazepam (Restoril) 15 mg PO QHS PRN PRN PRN Reason: INSOMNIA Throat Lozenges (Cepacol Sore Throat Lozenge) 1 lozenge MUCOUS MEM Q2H PRN PRN PRN Reason: Sore throat or cough STROKE Vital Signs/Narrative: Vital Signs Temp Pulse Resp BP Pulse Ox 07/18/19 12:13 98.4 F 100 18 115/75 93 07/18/19 12:08 102 H 16 99/69 97 07/18/19 12:03 101 H 16 128/76 H 94 07/18/19 11:58 98.2 F 102 H 16 131/80 H 98 07/18/19 10:35 97.9 F 103 H 16 136/89 H 96 07/18/19 10:00 98.4 F 108 H 18 147/86 H 98 Assessment/Plan This patient was seen in conjunction with Umang Padilla PA-C . I have independently interviewed and examined the patient and reviewed pertinent historical, laboratory, and other data. Please refer to Umang Padilla PA-C note for details of this patient's presentation, findings, and recommendations. I have reviewed Umang Padilla PA-C note and concur with documented findings. In brief, patient is a 8-year-old male with diabetes mellitus type 2 with poor control and complications including diabetic neuropathy presented with gangrene involving the right great toe. Antibiotics started per protocol consult placed to podiatry with plans for patient to undergo amputation of the infected toe Physical Examination: GENERAL: cooperative HEENT: Atraumatic; EYES; Anicteric, NECK; supple, normal thyroid, RESPIRATORY: Diminished to auscultation CARDIOVASCULAR: Regular S1 S2, GI: soft, normoactive bowel sounds, : No Renal angle tenderness; EXTREMITIES: Gangrene involving the right big toe MUSCULOSKELETAL: no muscle waisting NEURO: Awake; no lateralizing signs. SKIN: No Rash PSYCH; Flat affect Assessment: 1. Gangrene involving the right big toe with early signs of osteomyelitis 2. Diabetes mellitus type 2 uncontrolled with A1c of 13.3 and complications including diabetic polyneuropathy 3. COPD 4. GERD 5. Lipidemia 6. Essential hypertension 7. History of DVTs a systemic anticoagulation with Coumadin reversed prior to patient surgery Recommendations: 1. I have discussed the results of my overview and impressions with the patient 2. Options for management were reviewed Active Medications Acetaminophen (Tylenol) 650 mg PO Q6H PRN PRN PRN Reason: Non-cardiac pain (4-10/10) Hydrocodone Bitart/Acetaminophen ([place] 5mg-325mg) 1 - 2 tablet PO Q4H PRN PRN PRN Reason: Pain Score 4-10/10 Al Hydroxide/Mg Hydroxide (Mylanta Ii) 15 - 30 ml PO Q4H PRN PRN PRN Reason: INDIGESTION Albuterol Sulfate (Ventolin Aerosols) 2.5 mg INHALATION Q2H PRN PRN PRN Reason: dyspnea, wheezing Albuterol/Ipratropium (Duoneb) 3 ml INHALATION Q6HWA.RT [facility] Last Admin: 07/18/19 06:58 Dose: 3 ml Documented by: Atorvastatin Calcium (Lipitor) 40 mg PO QHS [facility] Diltiazem HCl (Cardizem Cd) 180 mg PO DAILY [facility] Famotidine (Pepcid) 20 mg PO BID [facility] Last Admin: 07/18/19 09:58 Dose: Not Given Documented by: Gabapentin (Neurontin) 600 mg PO TID [facility] Glucagon () 1 mg IM .X1 PRN PRN Reason: Hypoglycemia Guaifenesin (Robitussin) 20 ml PO Q4H PRN PRN PRN Reason: COUGH Hydralazine HCl (Apresoline Iv) 10 mg IV Q4H PRN PRN PRN Reason: SBP > 160 Piperacillin Sod/Tazobactam (Sod 3.375 gm/ Sodium Chloride) 50 mls @ 12.5 mls/hr IV Q8 [facility] Last Infusion: 07/18/19 10:29 Dose: Infused Documented by: Vancomycin IV Pharmacy to Dose (1 ea/ Sodium Chloride) 500 mls @ 250 mls/hr IV X1 PRN; Protocol PRN Reason: Rx to Dose Dextrose (Dextrose 10%-Water) 250 mls @ 999 mls/hr IV .Q16M PRN; Protocol PRN Reason: HYPOGLYCEMIA Vancomycin HCl 2,000 mg/ (Sodium Chloride) 540 mls @ 250 mls/hr IV Q12H [facility] Last Infusion: 07/18/19 07:57 Dose: Infused Documented by: Lactated Ringer's () 1,000 mls @ 100 mls/hr IV .Q10H [facility] Last Infusion: 07/18/19 12:21 Dose: Infused Documented by: Insulin Glargine (Lantus ([facility])) 20 units SC BID [facility] Last Admin: 07/18/19 09:59 Dose: 20 units Documented by: Insulin Human Lispro (Humalog Kwikpen ([facility])) 5 unit SC TIDAC [facility] Last Admin: 07/18/19 10:29 Dose: Not Given Documented by: Insulin Human Lispro (Humalog Kwikpen ([facility])) 0 unit SC Q4H [facility]; Protocol Last Admin: 07/18/19 08:24 Dose: Not Given Documented by: Lisinopril (Zestril) 20 mg PO DAILY [facility] Magnesium Hydroxide (Milk Of Magnesia) 30 ml PO DAILY PRN PRN Reason: Constipation Morphine Sulfate () 1 - 2 mg IV Q4H PRN PRN PRN Reason: Pain Score 1-10/10 Nicotine (Nicoderm Cq (Pbkc)) 21 mg TRANSDERM. DAILY PRN PRN Reason: Nicotine Craving Nitroglycerin (Nitrostat) 0.4 mg SUBLINGUAL Q5M PRN PRN Reason: CARDIAC/CHEST PAIN Ondansetron HCl (Zofran) 4 mg IV Q8H PRN PRN PRN Reason: NAUSEA/VOMITING Pantoprazole Sodium (Protonix) 40 mg PO DAILY [facility] Potassium Chloride (K-Dur) 20 meq PO TIDCM [facility] Psyllium Hydrophilic Mucilloid (Metamucil) 1 packet PO DAILY PRN PRN PRN Reason: Constipation Senna/Docusate Sodium (Senokot-S, Donna-Colace) 2 tablet PO BID PRN PRN PRN Reason: Constipation Sodium Chloride () 10 - 40 ml IV UD PRN PRN Reason: SALINE FLUSH Last Admin: 07/17/19 17:35 Dose: 20 ml Documented by: Temazepam (Restoril) 15 mg PO QHS PRN PRN PRN Reason: INSOMNIA Throat Lozenges (Cepacol Sore Throat Lozenge) 1 lozenge MUCOUS MEM Q2H PRN PRN PRN Reason: Sore throat or cough Clinical Impression(s) from Imaging Studies Lower Extremity MRI 07/17/19 14:55 IMPRESSION: Subtle decreased signal on T1-weighted imaging within the distal phalanx of the great toe.. This demonstrates increased signal on T2-weighted images. In addition there is a linear area of low signal on the T1-weighted images through the great toe at the base of the tuft may represent a nondisplaced. There may be early osteomyelitis involving the tuft of the toe but poorly visualized on this study. Consider repeating the study with contrast for further evaluation if clinically indicated Edema is seen at the plantar surface of the foot at the level of the great toe. at 2100 Reported and signed by: Armida Caldera DO Electronically Signed: Armida Caldera MD at 20:59 EST Tel , Service support , Foot X-Ray 07/17/19 19:10 IMPRESSION: Irregularities of the first distal phalanx which are indeterminate and subtle but could represent osteomyelitis. Electronically Signed: Samuel Christina MD at 20:46 EST , Service support , Code Visit Inpatient E&M: [id number] Subs Hosp L3
--- NOTE | 2019-07-18 12:05 | RAD_ITS ---
STUDY: X-RAY - RIGHT FOOT CLINICAL: Male, 68 years old. POST OP TECHNIQUE: 3 view(s) of the foot. COMPARISON: 07/17/2019 FINDINGS: There is a plantar calcaneal spur. Normal visualized subtalar, talonavicular, calcaneocuboid, tarsal and tarsometatarsal articulations. Cortical thickening of the third and fourth metatarsals stable. The first toe is surgically absent. Expected soft tissue swelling. Normal second through fifth metatarsophalangeal joints. Normal interphalangeal joints and phalanges of the lesser toes. The soft tissue structures are otherwise unremarkable. Vascular calcifications are present. Surgical clips project in the lower leg soft tissues. RAD/Foot min 3 Views IMPRESSION: First toe amputation. Electronically Signed: Sky Daniels MD ([place]) at 14:05 EST , Service support ,
--- NOTE | 2019-07-18 12:17 | OP.PCM_ITS ---
Problem List (1) Gangrene of toe Status: Acute (2) Diabetic ulcer of right foot Status: Acute (3) Osteomyelitis Status: Acute (4) PVD (peripheral vascular disease) Status: Acute (5) Type 2 diabetes mellitus with diabetic polyneuropathy Status: Acute Report of Operation Date of Procedure: 07/18/19 Pre-Operative Diagnosis: Diabetic foot ulcer to right hallux with gangrene and suspected osteomyelitis Post-Operative Diagnosis: same Surgery/Procedure Performed:: Debridement of all necrotic, non-viable, infected soft tissue and bone of the right foot with open hallux amputation Description of Surgical Findings:: Hemostasis: Anatomical surgical dissection Type of Anesthesia:: Local MAC - Preoperative blanchard block around proximal right 1st metatarsal consisting of 10 mL of 0.5% marcaine plain Specimen's removed: Necrotic and infected soft tissue and bone of the right hallux sent to pathology and microbiology for further evaluation. Clearance fragment from the right 1st metatarsal head also sent to pathology and microbiology for further evaluation. Estimated Blood Loss (mL): 15 mL Description of Procedure: Indications: This 68-year-old diabetic male patient with type 2 diabetes with neuropathy, PVD, COPD, tobacco use, HTN, HLD, as well as other comorbidities was admitted to the hospital yesterday after seeing Dr. Lozano at the [facility]. The patient was admitted for ulcer to the distal and plantar right hallux measuring approximately 4 cm x 4 cm. Patient had necrotic tissue to the area including what appeared to be an old area of dry gangrene that has turned wet with some very scant seropurulent drainage and malodor. There is some fluctuance and bogginess appreciated to the area. There is some faint erythema/cellulitis localized to the hallux directly surrounding the ulcer site. There is no streaking cellulitis onto the dorsal foot. Pedal pulses are not easily palpable. Patient relates that the ulcers started to slowly develop about 2 months ago, and says that they have continued to slowly get worse. He says he was unable to easily look at the area on his own and did not realize that it had gotten this bad. Patient had just previously been seen at the emergency room on July 14 and was sent home with a prescription for Keflex and in order to follow-up with podiatry. The patient has remained afebrile. Upon admission, his WBC was 8.5. ESR was 53. CRP was 24.4. Deep wound cultures taken and results are pending. MRSA PCR was negative. Patient current ly on IV antibiotics vancomycin and Zosyn per hospitalist. Three-view x-rays of the patient's left foot were taken that were read by the radiologist as showing irregularities of the first distal phalanx of the right hallux which could represent osteomyelitis. The patient also had LEAS studies performed. His HERNESTO was noted to be 0.65 and flow through the posterior tibial and dorsalis pedis were both monophasic. Dr. Shah has been consulted and will evaluate this patient to determine if any further intervention is warranted to increase the patient's blood flow. At this time, the planned surgical procedure was discussed in great detail with the patient. This was done to the patient's satisfaction. The patient agrees to proceed with the planned procedure and operation at this time. All of the risks and potential complications were reviewed with the patient. He understands the importance of proper compliance following this procedure to optimize the potential for healing, but no guarantees were given, especially due to patient's decreased blood flow to the lower extremity. He is advised that the complications and risks include, but are not limited to, further infection, need for further surgeries, recurrence of ulcers, transfer lesions, increased deformity of foot and toes, weakness, loss of strength, loss of function, nonhealing, delayed healing, blood clots, chronic swelling, Charcot foot/ankle, nerve damage, inability to walk, inability to wear shoes, severe pain, complex regional pain syndrome, need for more proximal or extensive amputations such as a TMA or BKA, loss of complete limb, or even loss of life. All of the patient's questions were answered to his satisfaction. It was then agreed upon to proceed with the debridement of all infected, necrotic, nonviable soft tissue and bone of the right foot with right hallux amputation. The consent form was reviewed with the patient and was freely signed. Again, no guarantees were given. Description of procedure: The patient was brought into the operating room and placed on the table in the supine position. The patient was already on IV antibiotics per hospitalist. The patient received MAC anesthesia with local anesthetic. A local anesthetic block was then performed in Blanchard block fashion to the proximal right first metatarsal consisting of 10 mL of 0.5% Marcaine plain. A well-padded ankle tourniquet was then applied to the patient's right ankle, but this was never inflated during the procedure. The right foot and ankle were then scrubbed prepped and draped in the usual aseptic manner. A timeout was then performed and the patient was properly identified and the surgical plan was confirmed. Next attention was directed to the medial aspect of the first MPJ of the right foot. Using a #15 scalpel blade, a horizontal fishmouth incision was made distal to the 1st MPJ. The incision and dissection was carefully carried down to the level of bone making sure to avoid any vital neurovascular structures. Next, dissection was carefully carried down, freeing the hallux of any soft tissue attachments and then disarticulating the entire hallux and the 1st MPJ. Very scant amount of seropurulent drainage appreciated from the distal hallux, but no purulent or necrotic tissue appreciated in the area of the MPJ. The hallux was then passed from the operating table. Part of the hallux bone was then sent to microbiology for aerobic, anaerobic, acid-fast, and fungal evaluation, and then the remaining hallux bone and soft tissue was sent to pathology for further evaluation. Any remaining visible tendons were then transected back as far as possible and passed from the operating table. The remaining surgical site at this time appeared to be healthy with no evidence of necrotic tissue. Next top gloves were changed and new instrumentation was used for the remainder of the procedure. The surgical site was then flushed with copious amounts of normal sterile saline. Once complete, the head of the first metatarsal appeared healthy in appearance. A Jamshidi needle was then used to biopsy the head of the first metatarsal as a clearance fragment. Half of this sample was sent to microbiology for aerobic, anaerobic, acid-fast, and fungal evaluation and the rest was then sent to pathology for further evaluation. All remaining soft tissue and bone appeared healthy at this time. Surgical site was then again flushed with copious amounts of normal sterile saline. Blood flow noted to surgical site. CFT was just slightly over 3 seconds to remaining digits of the right foot. Once complete, the surgical site was packed with 1/4'' iodoform packing, Adaptic, followed by 4x4's, ABDs, kerlix, and an SELMA bandage. After Procedure: The patient tolerated the procedure and anesthesia well. He was transferred to PACU with vital signs stable and vascular status intact. He will be transferred back to the medical surgical floor upon continued stability. He was advised to continue with strict nonweightbearing to right lower extremity and to keep the dressing clean dry and intact. Patient is to continue with IV antibiotics under the management of hospitalist. Infectious disease will be consulted. To continue DVT prophylaxis and medical management per primary team. He is to elevate the left foot for postop pain and inflammation management. Three-view left foot postop x-rays ordered. I will continue to follow this patient while in house.
[2019-07-18 13:01] LABS: Bedside Glucose 169 mg/dL (70-110)
[2019-07-18] MEDS: HYDROcodone Bitartrate/Apap 5/325 Tablet PO (16:26)
[2019-07-18] MEDS: 0.9% Saline Lock 10 ML Syringe IV ×2 (16:27→18:07)
[2019-07-18 16:40] LABS: Bedside Glucose 201 mg/dL (70-110)
[2019-07-18] MEDS: Morphine 2 MG/ML Syringe IV (18:07)
[2019-07-18] MEDS: Atorvastatin Calcium 40 MG Tablet PO (21:28)
[2019-07-18] MEDS: Gabapentin 600 MG Tablet PO (21:28)
[2019-07-18] MEDS: Famotidine 20 MG Tablet PO (21:34)
[2019-07-18 21:40] LABS: Bedside Glucose 277 mg/dL (70-110)
[2019-07-18] MEDS: Temazepam 15 MG Capsule PO (22:28)
[2019-07-19] VITALS (7 sets, daily range): BP systolic 132–140; BP diastolic 72–82; PULSE 96–108; RESP 18–20; TEMP 36.6–37.1; O2SAT 95–98
[2019-07-19] MEDS: Morphine 2 MG/ML Syringe IV ×2 (00:08→07:39)
[2019-07-19] MEDS: 0.9% Saline Lock 10 ML Syringe IV ×2 (00:09→07:42)
[2019-07-19 04:46] LABS: Absolute Lymphocyte Count 2.05 X10^3/uL (0.83-4.51); Basophil# 0.04 X10^3/uL; Basophil% 0.5 % (0-1); Eosinophil# 0.11 X10^3/uL; Eosinophils% 1.4 % (0-5); Hematocrit 33.3 % (40-54); Hemoglobin 10.7 g/dL (13.0-16.5); Lymphocyte # 2.05 X10^3/ul (4.0); Lymphocyte % 26.1 % (19-41); Mean Corp Hgb Conc 32.1 g/dL (32-36); Mean Corpuscular Hgb 29.2 pg (27.0-32.0); Mean Corpuscular Volume 90.7 fL (80-94); Mean Platelet Vol. 9.3 fl (6.2-12.0); Monocyte# 0.66 X10^3/uL; Monocyte% 8.4 % (0-10); NRBC Flagged by Analyzer 0 % (0-5); Neutrophil # 4.96 X10^3/uL (2.7-7.7); Neutrophil % 63.3 % (47-70); Platelet Count 281 K/mm3 (150-450); RBC Distribution Width CV 13.1 % (11.6-14.6); RBC Distribution Width SD 43.5 fl (35.1-43.9); Red Blood Count 3.67 M/mm3 (4.6-6.2); White Blood Count 7.8 K/mm3 (4.4-11.0)
[2019-07-19 05:11] LABS: Anion Gap 4 (5-15); BUN 9 mg/dL (7-18); BUN/Creat Ratio 13.7 RATIO (10-20); Calcium,Total 8.1 mg/dL (8.5-10.1); Chloride 108 mmol/L (98-107); Creatinine, Serum 0.66 mg/dL (0.70-1.30); EST Glomerular Filtration Rate 129 mL/min (>60); Est Glom Filt Rate - Afr Amer 156 mL/min (>60); Estimated Creatinine Clearance 77.39 ml/min; Glucose 252 mg/dL (74-106); Potassium 3.9 mmol/L (3.5-5.1); Sodium Level 137 mmol/L (136-145)
[2019-07-19 05:14] LABS: Vancomycin, Trough Level 11.1 ug/mL (5.0-15.0)
--- NOTE | 2019-07-19 05:40 | PCM.RX.CS ---
Consult Pharmacy has been consulted to manage selected antiobiotic: Vancomycin Type of Consult: Follow-up Labs: Sodium 137 mmol/L (136-145) 07/19/19 04:32 Potassium 3.9 mmol/L (3.5-5.1) 07/19/19 04:32 Chloride 108 mmol/L (98-107) H 07/19/19 04:32 Carbon Dioxide 25.0 mmol/L (21.0-32.0) 07/19/19 04:32 Anion Gap 4 (5-15) L 07/19/19 04:32 BUN 9 mg/dL (7-18) 07/19/19 04:32 Creatinine 0.66 mg/dL (0.70-1.30) L 07/19/19 04:32 Est GFR (MDRD) Af Amer 156 mL/min (>60) 07/19/19 04:32 Est GFR (MDRD) Non-Af 129 mL/min (>60) 07/19/19 04:32 BUN/Creatinine Ratio 13.7 RATIO (10-20) 07/19/19 04:32 Glucose 252 mg/dL (74-106) H 07/19/19 04:32 Vancomycin Trough 11.1 ug/mL (5.0-15.0) 07/19/19 04:32 Microbiology: Microbiology 07/17/19 20:20 Wound - Toe Gram Stain - Final 07/17/19 20:20 Wound - Toe Wound Culture - Preliminary Beta hemolytic organism Goal Trough: 15-20 mcg/mL Pharmacy Plan for Drug Dosing: Pharmacy Service will continue to monitor and adjust dosing as required. Medications Vancomycin HCl 1,250 mg/ (Sodium Chloride) 275 mls @ 167 mls/hr IV Q12H ARIA TROUGH 11.12 CHANGE DOSE TO 1250 Q8H NEXT TROUGH 07/20 @ 1430 Follow-Up Labs: Trough Vancomycin Labs to be done on [date and time ordered]: 07/20 @ 1430
[2019-07-19] MEDS: Gabapentin 600 MG Tablet PO ×2 (06:31→21:00)
[2019-07-19 06:44] LABS: International Normalized Ratio 1.4; Prothrombin Time (Protime)PT. 16.5 SECONDS (11.7-14.9)
[2019-07-19] MEDS: Ipratropium/Albuterol Sulfate 3 ML AMPUL.NEB INHALATION ×3 (07:13→20:02)
--- NOTE | 2019-07-19 07:24 | PN_ITS ---
Patient Problems: Active and Suspected Problems Diabetic foot infection (Acute) Gangrene of toe (Acute) Diabetic ulcer of right foot (Acute) Osteomyelitis (Acute) PVD (peripheral vascular disease) (Acute) Type 2 diabetes mellitus with diabetic polyneuropathy (Acute) Subjective: This patient was carefully examined and evaluated resting in bed early this morning POD #1 s/p open right hallux amputation. He currently relates his pain is controlled and he is resting comfortably in bed. He had no acute events over night. No strike through to outer dressing. Patient denies any feelings of nausea, vomiting, fever, or chills. - Physical Exam Vitals/I&O's: Vital Signs Temp Pulse Resp BP Pulse Ox 97.9 F 100 18 140/82 H 98 07/19/19 03:20 07/19/19 03:20 07/19/19 03:20 07/19/19 03:20 07/19/19 03:20 Oxygen Delivery Method Room Air Weight: 97.8 kg Body Mass Index (BMI) 30.0 Finger Stick Blood Glucose 239 Intake and Output for Last 24 Hours 07/17/19 07/18/19 07/19/19 23:59 23:59 23:59 Intake Total 1674.59 / 1674.59 3915.41 / 4275.41 950 / 950 Output Total 375 / 375 1600 / 2625 1700 / 1700 Balance 1299.59 / 1299.59 2315.41 / 1650.41 -750 / -750 General: Alert, Oriented x3, Cooperative, No apparent distress Extremities: No cyanosis, No Calf Tenderness - Negative Jarett and Warren signs bilateral, Diminished Peripheral Pulses - DP and PT pulses not easily palpable bilateral Skin: - - Open right hallux amputation surgical site to right foot. Right first met head can be visualized and appears healthy at this time. No necrotic appearing tissue appreciated today. The remaining tissue in the surgical site appears healthy and granular in appearance. There is no malodor and no purulence appreciated today. Musculoskeletal: Tenderness - Very minor tenderness with manipulation of surgical site Neurological: - - Epicritic sensation grossly absent to bilateral lower extremities consistent with patient's diabetic status Psych/Mental Status: Normal Affect, Appropriate Microbiology Past 72 Hours 07/17/19 20:20 Wound - Toe Gram Stain - Final 07/17/19 20:20 Wound - Toe Wound Culture - Preliminary Beta hemolytic organism Laboratory Results 07/18/19 08:04: POC Glucose 212 H 07/18/19 09:45: PT 20.6 H, INR 1.8 07/18/19 12:51: POC Glucose 169 H 07/18/19 16:25: POC Glucose 201 H 07/18/19 21:23: POC Glucose 277 H 07/19/19 04:32: Vancomycin Trough 11.1 07/19/19 04:32: WBC 7.8, RBC 3.67 L, Hgb 10.7 L, Hct 33.3 L, MCV 90.7, MCH 29.2, MCHC 32.1, RDW Std Deviation 43.5, RDW Coeff of Estrada 13.1, Plt Count 281, MPV 9.3, Immature Gran % (Auto) 0.300, Neut % (Auto) 63.3, Lymph % (Auto) 26.1, [place] % (Auto) 8.4, Eos % (Auto) 1.4, Baso % (Auto) 0.5, Absolute Neuts (auto) 5.0, Absolute Lymphs (auto) 2.05, Nucleated RBC % 0 07/19/19 04:32: Sodium 137, Potassium 3.9, Chloride 108 H, Carbon Dioxide 25.0, Anion Gap 4 L, BUN 9, Creatinine 0.66 L, Estim Creat Clear Calc 77.39, Est GFR (MDRD) Af Amer 156, Est GFR (MDRD) Non-Af 129, BUN/Creatinine Ratio 13.7, Gluc ose 252 H, Calcium 8.1 L 07/19/19 06:25: PT 16.5 H, INR 1.4 Current Medications Acetaminophen (Tylenol) 650 mg PO Q6H PRN PRN PRN Reason: Non-cardiac pain (4-10/10) Hydrocodone Bitart/Acetaminophen (Stephan 5mg-325mg) 1 - 2 tablet PO Q4H PRN PRN PRN Reason: Pain Score 4-10/10 Last Admin: 07/18/19 16:26 Dose: 2 tablet Documented by: Al Hydroxide/Mg Hydroxide (Mylanta Ii) 15 - 30 ml PO Q4H PRN PRN PRN Reason: INDIGESTION Albuterol Sulfate (Ventolin Aerosols) 2.5 mg INHALATION Q2H PRN PRN PRN Reason: dyspnea, wheezing Albuterol/Ipratropium (Duoneb) 3 ml INHALATION Q6HWA.RT [facility] Last Admin: 07/19/19 07:13 Dose: 3 ml Documented by: Atorvastatin Calcium (Lipitor) 40 mg PO QHS [facility] Last Admin: 07/18/19 21:28 Dose: 40 mg Documented by: Diltiazem HCl (Cardizem Cd) 180 mg PO DAILY [facility] Famotidine (Pepcid) 20 mg PO BID [facility] Last Admin: 07/18/19 21:34 Dose: 20 mg Documented by: Gabapentin (Neurontin) 600 mg PO TID [facility] Last Admin: 07/19/19 06:31 Dose: 600 mg Documented by: Glucagon () 1 mg IM .X1 PRN PRN Reason: Hypoglycemia Guaifenesin (Robitussin) 20 ml PO Q4H PRN PRN PRN Reason: COUGH Hydralazine HCl (Apresoline Iv) 10 mg IV Q4H PRN PRN PRN Reason: SBP > 160 Piperacillin Sod/Tazobactam (Sod 3.375 gm/ Sodium Chloride) 50 mls @ 12.5 mls/hr IV Q8 [facility] Last Admin: 07/19/19 07:18 Dose: 12.5 mls/hr Documented by: Vancomycin IV Pharmacy to Dose (1 ea/ Sodium Chloride) 500 mls @ 250 mls/hr IV X1 PRN; Protocol PRN Reason: Rx to Dose Dextrose (Dextrose 10%-Water) 250 mls @ 999 mls/hr IV .Q16M PRN; Protocol PRN Reason: HYPOGLYCEMIA Vancomycin HCl 2,000 mg/ (Sodium Chloride) 540 mls @ 250 mls/hr IV Q12H [facility] Stop: 07/19/19 07:30 Last Infusion: 07/19/19 07:20 Dose: Infused Documented by: Vancomycin HCl 1,250 mg/ (Sodium Chloride) 275 mls @ 167 mls/hr IV Q12H [facility] Insulin Glargine (Lantus (Bkc)) 20 units SC BID [facility] Last Admin: 07/18/19 21:28 Dose: 20 units Documented by: Insulin Human Lispro (Humalog Kwikpen (Bkc)) 5 unit SC TIDAC [facility] Last Admin: 07/18/19 16:27 Dose: 5 unit Documented by: Insulin Human Lispro (Humalog Kwikpen (Bkc)) 0 unit SC ACHS [facility]; Protocol Last Admin: 07/18/19 21:27 Dose: 4 units Documented by: Lisinopril (Zestril) 20 mg PO DAILY [facility] Magnesium Hydroxide (Milk Of Magnesia) 30 ml PO DAILY PRN PRN Reason: Constipation Morphine Sulfate () 1 - 2 mg IV Q4H PRN PRN PRN Reason: Pain Score 1-10/10 Last Admin: 07/19/19 00:08 Dose: 2 mg Documented by: Nicotine (Nicoderm Cq (Pbkc)) 21 mg TRANSDERM. DAILY PRN PRN Reason: Nicotine Craving Nitroglycerin (Nitrostat) 0.4 mg SUBLINGUAL Q5M PRN PRN Reason: CARDIAC/CHEST PAIN Ondansetron HCl (Zofran) 4 mg IV Q8H PRN PRN PRN Reason: NAUSEA/VOMITING Pantoprazole Sodium (Protonix) 40 mg PO DAILY [facility] Potassium Chloride (K-Dur) 20 meq PO TIDCM [facility] Last Admin: 07/18/19 16:26 Dose: 20 meq Documented by: Psyllium Hydrophilic Mucilloid (Metamucil) 1 packet PO DAILY PRN PRN PRN Reason: Constipation Senna/Docusate Sodium (Senokot-S, Donna-Colace) 2 tablet PO BID PRN PRN PRN Reason: Constipation Sodium Chloride () 10 - 40 ml IV UD PRN PRN Reason: SALINE FLUSH Last Admin: 07/19/19 00:09 Dose: 20 ml Documented by: Temazepam (Restoril) 15 mg PO QHS PRN PRN PRN Reason: INSOMNIA Last Admin: 07/18/19 22:28 Dose: 15 mg Documented by: Throat Lozenges (Cepacol Sore Throat Lozenge) 1 lozenge MUCOUS MEM Q2H PRN PRN PRN Reason: Sore throat or cough Medical Necessity - Tobacco Use Smoking Status: Current every day smoker Tobacco Use: Cigarettes Assessment/Plan All Active Problems Screen for colon cancer (Acute) Diabetic foot infection (Acute) Gangrene of toe (Acute) Diabetic ulcer of right foot (Acute) Osteomyelitis (Acute) PVD (peripheral vascular disease) (Acute) Type 2 diabetes mellitus with diabetic polyneuropathy (Acute) POD #1 s/p right open hallux amputation DM II with neuropathy PVD Cellulitis - resolving Other comorbidities This patient was carefully examined and evaluated resting comfortably in bed earlier this morning POD #1 s/p right open hallux amputation. Patient had no acute events overnight. No strikethrough appreciated outer dressing. WBC is 7.8 today. Patient is afebrile and vital signs stable currently. Preliminary results from wound culture prior to surgery show beta-hemolytic organism. Micro and path results from the bone and tissue sent during surgery yesterday are still pending. Patient currently on IV antibiotics and infectious diseases consulted. Surgical dressing was taken down at bedside today and site was evaluated. Currently there is no evidence of any necrotic tissue. There is no evidence of any purulence or malodor today. The site was carefully flushed with copious amounts of normal sterile saline. Next the surgical site was then packed with quarter inch iodoform packing followed by 4 x 4's, ABDs, Kerlix, and a lightly wrapped Donte bandage to hold the dressing in place but no compression was used with the Donte. Patient is to keep right lower extremity elevated to help with edema and pain control. Patient's dressing can be reinforced as noted above by nursing staff if necessary. Patient is to continue to be nonweightbearing to the right foot. If he needs to pivot or transfer very short distance he is to do this with heel weightbearing to the right side. Dr. Shah with vascular surgery will evaluate this patient and determine whether he believes further intervention is warranted to increase the patient's chances of healing the surgical site. I discussed with the patient the importance of smoking cessation as well as controlling his diabetes and its impact in helping heal the patient's surgical site. Patient understands and is aware that further surgical procedures could be possible in the future. Continued medical management and DVT prophylaxis appreciated per primary team. Podiatry will continue to follow this patient.
[2019-07-19] MEDS: Insulin Lispro 100 UNIT/ML INSULN.PEN SC ×7 (07:52→21:02)
[2019-07-19 08:01] LABS: Bedside Glucose 243 mg/dL (70-110)
[2019-07-19] MEDS: dilTIAZem CD 180 MG Capsule PO (09:04)
[2019-07-19] MEDS: Famotidine 20 MG Tablet PO ×2 (09:05→21:00)
[2019-07-19] MEDS: Pantoprazole Sodium 40 MG Tablet PO (09:05)
[2019-07-19] MEDS: Lisinopril 20 MG Tablet PO (09:09)
--- NOTE | 2019-07-19 10:04 | PN_ITS ---
Patient Problems: Active and Suspected Problems Diabetic foot infection (Acute) Gangrene of toe (Acute) Diabetic ulcer of right foot (Acute) Osteomyelitis (Acute) PVD (peripheral vascular disease) (Acute) Type 2 diabetes mellitus with diabetic polyneuropathy (Acute) Reason for Visit: Follow-up ; right hallux amputation. Subjective: Patient is a 68-year-old male with diabetes mellitus type 2 with poor control and complications including diabetic neuropathy presented with gangrene involving the right great toe. Antibiotics started per protocol consult placed to podiatry Patient underwent open amputation of the right hallux on 07/18/2019. Cultures sent results pending Objective: GENERAL: cooperative HEENT: Atraumatic; EYES; Anicteric, NECK; supple, normal thyroid, RESPIRATORY: Diminished to auscultation CARDIOVASCULAR: Regular S1 S2, GI: soft, normoactive bowel sounds, : No Renal angle tenderness; EXTREMITIES: Right foot in surgical dressing MUSCULOSKELETAL: no muscle waisting NEURO: Awake; no lateralizing signs. SKIN: No Rash PSYCH; Flat affect Vitals/I&O's: Vital Signs Temp Pulse Resp BP Pulse Ox 98.0 F 98 18 138/82 H 98 07/19/19 09:01 07/19/19 09:01 07/19/19 09:01 07/19/19 09:01 07/19/19 09:01 Oxygen Delivery Method Room Air Weight: 97.8 kg Body Mass Index (BMI) 30.0 Finger Stick Blood Glucose 239 Intake and Output for Last 24 Hours 07/17/19 07/18/19 07/19/19 23:59 23:59 23:59 Intake Total 1674.59 / 1674.59 3915.41 / 4275.41 950 / 950 Output Total 375 / 375 1600 / 2625 1700 / 1700 Balance 1299.59 / 1299.59 2315.41 / 1650.41 -750 / -750 Microbiology Past 72 Hours 07/17/19 20:20 Wound - Toe Gram Stain - Final 07/17/19 20:20 Wound - Toe Wound Culture - Preliminary Beta hemolytic organism Laboratory Results 07/18/19 09:45: PT 20.6 H, INR 1.8 07/18/19 12:51: POC Glucose 169 H 07/18/19 16:25: POC Glucose 201 H 07/18/19 21:23: POC Glucose 277 H 07/19/19 04:32: Vancomycin Trough 11.1 07/19/19 04:32: WBC 7.8, RBC 3.67 L, Hgb 10.7 L, Hct 33.3 L, MCV 90.7, MCH 29.2, MCHC 32.1, RDW Std Deviation 43.5, RDW Coeff of Estrada 13.1, Plt Count 281, MPV 9.3, Immature Gran % (Auto) 0.300, Neut % (Auto) 63.3, Lymph % (Auto) 26.1, [place] % (Auto) 8.4, Eos % (Auto) 1.4, Baso % (Auto) 0.5, Absolute Neuts (auto) 5.0, Absolute Lymphs (auto) 2.05, Nucleated RBC % 0 07/19/19 04:32: Sodium 137, Potassium 3.9, Chloride 108 H, Carbon Dioxide 25.0, Anion Gap 4 L, BUN 9, Creatinine 0.66 L, Estim Creat Clear Calc 77.39, Est GFR (MDRD) Af Amer 156, Est GFR (MDRD) Non-Af 129, BUN/Creatinine Ratio 13.7, Glucose 252 H, Calcium 8.1 L 07/19/19 06:25: PT 16.5 H, INR 1.4 07/19/19 07:51: POC Glucose 243 H Current Medications Acetaminophen (Tylenol) 650 mg PO Q6H PRN PRN PRN Reason: Non-cardiac pain (4-10/10) Hydrocodone Bitart/Acetaminophen ([place] 5mg-325mg) 1 - 2 tablet PO Q4H PRN PRN PRN Reason: Pain Score 4-10/10 Last Admin: 07/18/19 16:26 Dose: 2 tablet Documented by: Al Hydroxide/Mg Hydroxide (Mylanta Ii) 15 - 30 ml PO Q4H PRN PRN PRN Reason: INDIGESTION Albuterol Sulfate (Ventolin Aerosols) 2.5 mg INHALATION Q2H PRN PRN PRN Reason: dyspnea, wheezing Albuterol/Ipratropium (Duoneb) 3 ml INHALATION Q6HWA.RT [facility] Last Admin: 07/19/19 07:13 Dose: 3 ml Documented by: Atorvastatin Calcium (Lipitor) 40 mg PO QHS [facility] Last Admin: 07/18/19 21:28 Dose: 40 mg Documented by: Diltiazem HCl (Cardizem Cd) 180 mg PO DAILY [facility] Last Admin: 07/19/19 09:04 Dose: 180 mg Documented by: Famotidine (Pepcid) 20 mg PO BID [facility] Last Admin: 07/19/19 09:05 Dose: 20 mg Documented by: Gabapentin (Neurontin) 600 mg PO TID [facility] Last Admin: 07/19/19 06:31 Dose: 600 mg Documented by: Glucagon () 1 mg IM .X1 PRN PRN Reason: Hypoglycemia Guaifenesin (Robitussin) 20 ml PO Q4H PRN PRN PRN Reason: COUGH Hydralazine HCl (Apresoline Iv) 10 mg IV Q4H PRN PRN PRN Reason: SBP > 160 Piperacillin Sod/Tazobactam (Sod 3.375 gm/ Sodium Chloride) 50 mls @ 12.5 mls/hr IV Q8 [facility] Last Admin: 07/19/19 07:18 Dose: 12.5 mls/hr Documented by: Vancomycin IV Pharmacy to Dose (1 ea/ Sodium Chloride) 500 mls @ 250 mls/hr IV X1 PRN; Protocol PRN Reason: Rx to Dose Dextrose (Dextrose 10%-Water) 250 mls @ 999 mls/hr IV .Q16M PRN; Protocol PRN Reason: HYPOGLYCEMIA Vancomycin HCl 1,250 mg/ (Sodium Chloride) 275 mls @ 167 mls/hr IV Q12H [facility] Insulin Glargine (Lantus (Bkc)) 20 units SC BID [facility] Last Admin: 07/19/19 09:04 Dose: 20 units Documented by: Insulin Human Lispro (Humalog Kwikpen (Bkc)) 5 unit SC TIDAC [facility] Last Admin: 07/19/19 07:52 Dose: 5 unit Documented by: Insulin Human Lispro (Humalog Kwikpen (Bkc)) 0 unit SC ACHS [facility]; Protocol Last Admin: 07/19/19 07:53 Dose: 3 units Documented by: Lisinopril (Zestril) 20 mg PO DAILY [facility] Last Admin: 07/19/19 09:09 Dose: 20 mg Documented by: Magnesium Hydroxide (Milk Of Magnesia) 30 ml PO DAILY PRN PRN Reason: Constipation Morphine Sulfate () 1 - 2 mg IV Q4H PRN PRN PRN Reason: Pain Score 1-10/10 Last Admin: 07/19/19 07:39 Dose: 2 mg Documented by: Nicotine (Nicoderm Cq (Pbkc)) 21 mg TRANSDERM. DAILY PRN PRN Reason: Nicotine Craving Nitroglycerin (Nitrostat) 0.4 mg SUBLINGUAL Q5M PRN PRN Reason: CARDIAC/CHEST PAIN Ondansetron HCl (Zofran) 4 mg IV Q8H PRN PRN PRN Reason: NAUSEA/VOMITING Pantoprazole Sodium (Protonix) 40 mg PO DAILY [facility] Last Admin: 07/19/19 09:05 Dose: 40 mg Documented by: Potassium Chloride (K-Dur) 20 meq PO TIDCM [facility] Last Admin: 07/19/19 07:58 Dose: 20 meq Documented by: Psyllium Hydrophilic Mucilloid (Metamucil) 1 packet PO DAILY PRN PRN PRN Reason: Constipation Senna/Docusate Sodium (Senokot-S, Donna-Colace) 2 tablet PO BID PRN PRN PRN Reason: Constipation Sodium Chloride () 10 - 40 ml IV UD PRN PRN Reason: SALINE FLUSH Last Admin: 07/19/19 07:42 Dose: 10 ml Documented by: Temazepam (Restoril) 15 mg PO QHS PRN PRN PRN Reason: INSOMNIA Last Admin: 07/18/19 22:28 Dose: 15 mg Documented by: Throat Lozenges (Cepacol Sore Throat Lozenge) 1 lozenge MUCOUS MEM Q2H PRN PRN PRN Reason: Sore throat or cough STROKE Vital Signs/Narrative: Vital Signs Temp Pulse Resp BP Pulse Ox 07/19/19 09:01 98.0 F 98 18 138/82 H 98 07/19/19 07:13 108 H 20 H 95 Medical Necessity - Tobacco Use Smoking Status: Current every day smoker Tobacco Use: Cigarettes Assessment/Plan All Active Problems Screen for colon cancer (Acute) Diabetic foot infection (Acute) Gangrene of toe (Acute) Diabetic ulcer of right foot (Acute) Osteomyelitis (Acute) PVD (peripheral vascular disease) (Acute) Type 2 diabetes mellitus with diabetic polyneuropathy (Acute) In brief, patient is a 68-year-old male with diabetes mellitus type 2 with poor control and complications including diabetic neuropathy presented with gangrene involving the right great toe. Antibiotics started per protocol consult placed to podiatry with plans for patient to undergo amputation of the infected toe 1. Gangrene involving the right big toe with early signs of osteomyelitis ~Patient underwent open amputation of the right hallux on 07/18/2019. Cultures sent results pending 2. Diabetes mellitus type 2 uncontrolled with A1c of 13.3 and complications including diabetic polyneuropathy ~ Placed on long acting insulin, Accu-Cheks a.c. and at bedtime and covered with sliding scale insulin 3. Dyslipidemia ~patient is on statin therapy, continued at home dose 4. Hypertension ~ blood pressure controlled, home medications continued with dose adjustment as needed 5. GERD ?Patient is on famotidine did continue 6. COPD ?Currently not in exacerbation did continue patient's home aerosol regimen 7. History of previous DVTs ?Patient is on systemic anticoagulation with Coumadin. On admission was 2.6. Patient did receive FFP prior to his procedure. Coumadin started on 07/19/2019 with subsequent monitoring of electrolytes Code Visit Inpatient E&M: 28351 Subs Hosp L2
[2019-07-19] MEDS: Multivitamins,Therapeutic Tablet 1 TABLET PO (11:08)
[2019-07-19 11:16] LABS: Bedside Glucose 339 mg/dL (70-110)
--- NOTE | 2019-07-19 11:28 | NURSING ---
dressing to the right foot was changed by Dr Barney this am. Dressing is to be left in place.
--- NOTE | 2019-07-19 11:56 | CON.PCM_ITS ---
Reason for Consult: Diabetic pedal infection involving the right foot Consulted by: Dr. Hidalgo History of Present Illness: The patient is a 68 year old M [] This is a 68-year-old gentleman with multiple comorbidities including diabetes mellitus, chronic pain syndrome with previous trauma to his back and require surgery of the spine in the past who presents with necrotic changes of his right big toe earlier this week. Patient was subsequently taken to surgery yesterday underwent surgical debridement of right foot including amputation of the right big toe. Patient is currently out of bed to a chair and overall clinically stable. Denies any cardiopulmonary distress no gastrointestinal symptoms. Patient does not recall any specific trauma to his right foot but he does have diabetes with underlying neuropathy. Currently on broad-spectrum antibiotic therapy for vancomycin plus Zosyn. Currently clinically stable with no specific complaints. - Medical History Past Medical History (Chronic Problems): Chronic Problems Lumbar spinal stenosis (Chronic) Obstructive sleep apnea (Chronic) Scabies infestation (Chronic) DVT (deep venous thrombosis) (Chronic) Tobacco abuse (Chronic) GERD (gastroesophageal reflux disease) (Chronic) Neuropathy (Chronic) Hypertension (Chronic) COPD (chronic obstructive pulmonary disease) (Chronic) Peripheral vascular disease (Chronic) Hyperlipidemia (Chronic) Erectile dysfunction (Chronic) Diabetes mellitus (Chronic) IDDM (insulin dependent diabetes mellitus) (Chronic) Allergies/Adverse Reactions: Allergies No Known Allergies Allergy (Verified 03/13/18 15:11) Home Medications: Ambulatory Orders Medication Instructions Recorded Diltiazem 180 mg PO DAILY 09/26/13 Gabapentin [Neurontin] 600 mg PO TID 09/26/13 Warfarin [Coumadin] 8 mg PO DAILY@1700 11/06/15 Zolpidem Tartrate [Ambien] 10 mg PO QHS 11/06/15 Atorvastatin Calcium [Lipitor] 40 mg PO DAILY 03/13/18 Lisinopril [Zestril] 20 mg PO DAILY 03/13/18 Meloxicam [Mobic] 15 mg PO DAILY 03/13/18 Omeprazole [Prilosec] 40 mg PO DAILY 03/13/18 Insulin Degludec/Liraglutide 07/17/19 [Xultophy 100 Unit-3.6MG/ml Pen] Multivitamin [Daily Multiple 1 ea PO DAILY 07/17/19 Vitamin] Potassium Chloride [Klor-Con 10] 20 meq PO TID 07/17/19 Roflumilast [Daliresp] 500 mcg PO DAILY 07/17/19 Vital Signs Temp Pulse Resp BP Pulse Ox 98.0 F 98 18 138/82 H 98 07/19/19 09:01 07/19/19 09:01 07/19/19 09:01 07/19/19 09:01 07/19/19 09:01 Oxygen Delivery Method Room Air Weight: 97.8 kg Body Mass Index (BMI) 30.0 Finger Stick Blood Glucose 239 Microbiology Past 72 Hours 07/17/19 20:20 Gram Stain - Final Wound - Toe Wound Culture - Preliminary Beta hemolytic organism Laboratory Tests Past 24 Hrs 07/19/19 07/19/19 07/19/19 04:32 04:32 04:32 WBC 7.8 RBC 3.67 L Hgb 10.7 L Hct 33.3 L MCV 90.7 MCH 29.2 MCHC 32.1 RDW Std Deviation 43.5 RDW Coeff of Estrada 13.1 Plt Count 281 MPV 9.3 Immature Gran % (Auto) 0.300 Neut % (Auto) 63.3 Lymph % (Auto) 26.1 [place] % (Auto) 8.4 Eos % (Auto) 1.4 Baso % (Auto) 0.5 Absolute Neuts (auto) 5.0 Absolute Lymphs (auto) 2.05 Nucleated RBC % 0 PT INR Sodium 137 Potassium 3.9 Chloride 108 H Carbon Dioxide 25.0 Anion Gap 4 L BUN 9 Creatinine 0.66 L Estim Creat Clear Calc 77.39 Est GFR (MDRD) Af Amer 156 Est GFR (MDRD) Non-Af 129 BUN/Creatinine Ratio 13.7 Glucose 252 H Calcium 8.1 L Vancomycin Trough 11.1 07/19/19 06:25 WBC RBC Hgb Hct MCV MCH MCHC RDW Std Deviation RDW Coeff of Estrada Plt Count MPV Immature Gran % (Auto) Neut % (Auto) Lymph % (Auto) [place] % (Auto) Eos % (Auto) Baso % (Auto) Absolute Neuts (auto) Absolute Lymphs (auto) Nucleated RBC % PT 16.5 H INR 1.4 Sodium Potassium Chloride Carbon Dioxide Anion Gap BUN Creatinine Estim Creat Clear Calc Est GFR (MDRD) Af Amer Est GFR (MDRD) Non-Af BUN/Creatinine Ratio Glucose Calcium Vancomycin Trough - Other Studies Radiology: [] Other Studies: [] Route of nutrition/ use of supplements: [] Nutritional Intake: [] IV Site: [] Abreu Catheter: [] Alert does not appear toxic lungs are clear heart exam S1-S2 abdomen is obese but soft right foot postop dressings are in place - Assessment/Plan Antibiotics: [] Assessment/Plan: [] Active and Suspected Problems Diabetic foot infection (Acute) Gangrene of toe (Acute) Diabetic ulcer of right foot (Acute) Osteomyelitis (Acute) PVD (peripheral vascular disease) (Acute) Type 2 diabetes mellitus with diabetic polyneuropathy (Acute) Diabetic foot infection above the right foot status post partial imitation the right big toe. We will closely follow the culture information. At this point will treat with Unasyn 3 g IV every 6 hours.
--- NOTE | 2019-07-19 13:57 | PCM.CONS.GEN ---
Problem List (1) Gangrene of toe Status: Acute (2) PVD (peripheral vascular disease) Status: Acute Reason for Consult Date of Consultation: 07/19/19 Reason for Consultation: PAD right leg History of Present Illness: The patient is a 68 year old M with wet gangrene to his right great toe. Is undergone debridement. He had vascular lab studies that show his right SFA is occluded. He has a history of left SFA occlusion with a left leg bypass at the [facility] around 2007. No interventions ever on the right leg. No coronary history. No stroke. Patient still actively smoking, counseled him on the risks of this. He has been diabetic since the mid . Hypertension on medications. Hyperlipidemia on a statin. PAD as listed above. Patient with a fall and back injury with surgery in the past, still some residual effect on his walking. [] Past Medical History Past Medical History (Chronic Problems): Chronic Problems Lumbar spinal stenosis (Chronic) Obstructive sleep apnea (Chronic) Scabies infestation (Chronic) DVT (deep venous thrombosis) (Chronic) Tobacco abuse (Chronic) GERD (gastroesophageal reflux disease) (Chronic) Neuropathy (Chronic) Hypertension (Chronic) COPD (chronic obstructive pulmonary disease) (Chronic) Peripheral vascular disease (Chronic) Hyperlipidemia (Chronic) Erectile dysfunction (Chronic) Diabetes mellitus (Chronic) IDDM (insulin dependent diabetes mellitus) (Chronic) Allergies No Known Allergies Allergy (Verified 03/13/18 15:11) Home Medications: Ambulatory Orders Medication Instructions Recorded Diltiazem 180 mg PO DAILY 09/26/13 Gabapentin [Neurontin] 600 mg PO TID 09/26/13 Warfarin [Coumadin] 8 mg PO DAILY@1700 11/06/15 Zolpidem Tartrate [Ambien] 10 mg PO QHS 11/06/15 Atorvastatin Calcium [Lipitor] 40 mg PO DAILY 03/13/18 Lisinopril [Zestril] 20 mg PO DAILY 03/13/18 Meloxicam [Mobic] 15 mg PO DAILY 03/13/18 Omeprazole [Prilosec] 40 mg PO DAILY 03/13/18 Insulin Degludec/Liraglutide 07/17/19 [Xultophy 100 Unit-3.6MG/ml Pen] Multivitamin [Daily Multiple 1 ea PO DAILY 07/17/19 Vitamin] Potassium Chloride [Klor-Con 10] 20 meq PO TID 07/17/19 Roflumilast [Daliresp] 500 mcg PO DAILY 07/17/19 Surgical History: - - Lumbar laminectomy and fusion x 2, LLE surgery for clot retrieval with follow-up I&D x2 for infection. Psychiatric History: No pertinent psych hx Lives: With Family - Lives with her cousin. Smoking Status: Current every day smoker Tobacco Use: Cigarettes Alcohol: None Drugs: None - *Family History Paternal History Items: Diabetes Maternal History Items: Diabetes, Heart Disease, Hypertension, - - History of brain aneurysms. Patient Problems: Active and Suspected Problems Diabetic foot infection (Acute) Gangrene of toe (Acute) Diabetic ulcer of right foot (Acute) Osteomyelitis (Acute) PVD (peripheral vascular disease) (Acute) Type 2 diabetes mellitus with diabetic polyneuropathy (Acute) - Physical Exam Vitals/I&O's: Vital Signs Temp Pulse Resp BP Pulse Ox 98.0 F 96 20 H 138/82 H 98 07/19/19 09:01 07/19/19 12:49 07/19/19 12:49 07/19/19 09:01 07/19/19 09:01 Oxygen Delivery Method Room Air Weight: 215 lb 9.793 oz Body Mass Index (BMI) 30.0 Finger Stick Blood Glucose 239 Intake and Output for Last 24 Hours 07/17/19 07/18/19 07/19/19 23:59 23:59 23:59 Intake Total 1674.59 / 1674.59 3915.41 / 4275.41 1552 / 1552 Output Total 375 / 375 1600 / 2625 2200 / 2200 Balance 1299.59 / 1299.59 2315.41 / 1650.41 -648 / -648 General: Alert, Oriented x3 HEENT: Atraumatic, PERRLA Oral: Moist Mucosa Neck: Supple, No JVD Lungs: Clear to auscultation Cardiovascular: Regular rate Abdomen: Soft, Non Tender Extremities: - - Dressing intact right leg Palpable femoral pulses Skin: No rashes Musculoskeletal: No Tenderness to Palpation of Joints or Extremities Microbiology Past 72 Hours 07/17/19 20:20 Wound - Toe Gram Stain - Final 07/17/19 20:20 Wound - Toe Wound Culture - Preliminary Gram negative gala Gram Positive Cocci Gram positive gala Streptococcus agalactiae (B) 07/18/19 12:20 Bone - Right Foot Gram Stain - Final 07/18/19 12:20 Bone - Right Foot Wound Culture - Preliminary No growth-Final to follow 07/18/19 12:20 Bone - Right Foot Gram Stain - Final 07/18/19 12:20 Bone - Right Foot Wound 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 Gram Positive Organisms Laboratory Results 07/18/19 16:25: POC Glucose 201 H 07/18/19 21:23: POC Glucose 277 H 07/19/19 04:32: Vancomycin Trough 11.1 07/19/19 04:32: WBC 7.8, RBC 3.67 L, Hgb 10.7 L, Hct 33.3 L, MCV 90.7, MCH 29.2, MCHC 32.1, RDW Std Deviation 43.5, RDW Coeff of Estrada 13.1, Plt Count 281, MPV 9.3, Immature Gran % (Auto) 0.300, Neut % (Auto) 63.3, Lymph % (Auto) 26.1, [place] % (Auto) 8.4, Eos % (Auto) 1.4, Baso % (Auto) 0.5, Absolute Neuts (auto) 5.0, Absolute Lymphs (auto) 2.05, Nucleated RBC % 0 07/19/19 04:32: Sodium 137, Potassium 3.9, Chloride 108 H, Carbon Dioxide 25.0, Anion Gap 4 L, BUN 9, Creatinine 0.66 L, Estim Creat Clear Calc 77.39, Est GFR (MDRD) Af Amer 156, Est GFR (MDRD) Non-Af 129, BUN/Creatinine Ratio 13.7, Glucose 252 H, Calcium 8.1 L 07/19/19 06:25: PT 16.5 H, INR 1.4 07/19/19 07:51: POC Glucose 243 H 07/19/19 11:07: POC Glucose 339 H Current Medications Acetaminophen (Tylenol) 650 mg PO Q6H PRN PRN PRN Reason: Non-cardiac pain (4-10/10) Hydrocodone Bitart/Acetaminophen ([place] 5mg-325mg) 1 - 2 tablet PO Q4H PRN PRN PRN Reason: Pain Score 4-10/10 Last Admin: 07/18/19 16:26 Dose: 2 tablet Documented by: Al Hydroxide/Mg Hydroxide (Mylanta Ii) 15 - 30 ml PO Q4H PRN PRN PRN Reason: INDIGESTION Albuterol Sulfate (Ventolin Aerosols) 2.5 mg INHALATION Q2H PRN PRN PRN Reason: dyspnea, wheezing Albuterol/Ipratropium (Duoneb) 3 ml INHALATION Q6HWA.RT [facility] Last Admin: 07/19/19 12:49 Dose: 3 ml Documented by: Atorvastatin Calcium (Lipitor) 40 mg PO QHS [facility] Last Admin: 07/18/19 21:28 Dose: 40 mg Documented by: Diltiazem HCl (Cardizem Cd) 180 mg PO DAILY [facility] Last Admin: 07/19/19 09:04 Dose: 180 mg Documented by: Famotidine (Pepcid) 20 mg PO BID [facility] Last Admin: 07/19/19 09:05 Dose: 20 mg Documented by: Gabapentin (Neurontin) 600 mg PO TID [facility] Last Admin: 07/19/19 13:19 Dose: Not Given Documented by: Glucagon () 1 mg IM .X1 PRN PRN Reason: Hypoglycemia Guaifenesin (Robitussin) 20 ml PO Q4H PRN PRN PRN Reason: COUGH Hydralazine HCl (Apresoline Iv) 10 mg IV Q4H PRN PRN PRN Reason: SBP > 160 Dextrose (Dextrose 10%-Water) 250 mls @ 999 mls/hr IV .Q16M PRN; Protocol PRN Reason: HYPOGLYCEMIA Ampicillin Sodium/Sulbactam (Sodium 3 gm/ Sodium Chloride) 112 mls @ 150 mls/hr IV Q6 [facility] Last Infusion: 07/19/19 13:28 Dose: Infused Documented by: Insulin Glargine (Lantus (Bkc)) 20 units SC BID [facility] Last Admin: 07/19/19 09:04 Dose: 20 units Documented by: Insulin Human Lispro (Humalog Kwikpen (Bkc)) 5 unit SC TIDAC [facility] Last Admin: 07/19/19 11:08 Dose: 5 unit Documented by: Insulin Human Lispro (Humalog Kwikpen (Bkc)) 0 unit SC ACHS [facility]; Protocol Last Admin: 07/19/19 11:08 Dose: 5 units Documented by: Lisinopril (Zestril) 20 mg PO DAILY [facility] Last Admin: 07/19/19 09:09 Dose: 20 mg Documented by: Magnesium Hydroxide (Milk Of Magnesia) 30 ml PO DAILY PRN PRN Reason: Constipation Morphine Sulfate () 1 - 2 mg IV Q4H PRN PRN PRN Reason: Pain Score 1-10/10 Last Admin: 07/19/19 07:39 Dose: 2 mg Documented by: Multivitamins (Multivitamin) 1 tablet PO DAILY@1200 [facility] Last Admin: 07/19/19 11:08 Dose: 1 tablet Documented by: Nicotine (Nicoderm Cq (Pbkc)) 21 mg TRANSDERM. DAILY PRN PRN Reason: Nicotine Craving Nitroglycerin (Nitrostat) 0.4 mg SUBLINGUAL Q5M PRN PRN Reason: CARDIAC/CHEST PAIN Ondansetron HCl (Zofran) 4 mg IV Q8H PRN PRN PRN Reason: NAUSEA/VOMITING Pantoprazole Sodium (Protonix) 40 mg PO DAILY [facility] Last Admin: 07/19/19 09:05 Dose: 40 mg Documented by: Potassium Chloride (K-Dur) 20 meq PO TIVAM [facility] Last Admin: 07/19/19 11:08 Dose: 20 meq Documented by: Psyllium Hydrophilic Mucilloid (Metamucil) 1 packet PO DAILY PRN PRN PRN Reason: Constipation Senna/Docusate Sodium (Senokot-S, Donna-Colace) 2 tablet PO BID PRN PRN PRN Reason: Constipation Sodium Chloride () 10 - 40 ml IV UD PRN PRN Reason: SALINE FLUSH Last Admin: 07/19/19 07:42 Dose: 10 ml Documented by: Temazepam (Restoril) 15 mg PO QHS PRN PRN PRN Reason: INSOMNIA Last Admin: 07/18/19 22:28 Dose: 15 mg Documented by: Throat Lozenges (Cepacol Sore Throat Lozenge) 1 lozenge MUCOUS MEM Q2H PRN PRN PRN Reason: Sore throat or cough Warfarin Sodium (Coumadin (Pbkc)) 8 mg PO DAILY@1700 [facility] Assessment/Plan All Active Problems Screen for colon cancer (Acute) Diabetic foot infection (Acute) Gangrene of toe (Acute) Diabetic ulcer of right foot (Acute) Osteomyelitis (Acute) PVD (peripheral vascular disease) (Acute) Type 2 diabetes mellitus with diabetic polyneuropathy (Acute) Patient with PAD. 1. PAD. He has SFA occlusion on his right leg. Does have longstanding collaterals around this with adequate perfusion into the foot. We will plan for a right leg angiogram with intervention. He will need reversed from his Coumadin and either a heparin drip if he stays in the hospital or the rehab floor, or would need to do Lovenox as an outpatient. We will plan for the angiogram next Tuesday.
--- NOTE | 2019-07-19 15:40 | CASEMGMT ---
RN CM KEYBOARD SPECIALIST CM to room to meet with patient for initial transition planning/care coordination assessment. RN HIEN introduced self and role at [facility]. Pt voices understanding and consents to assessment at this time. Pt resting in bed in no distress at this time. Pt is A/O at this time and answers all questions appropriately. Care providers, pharmacy, and demographics verified/updated at this time. PCP: David Specialists: [facility] Preferred Pharmacy: [facility] [place] Insurance: [facility]-- has a CM through [employer] Prescription Benefit: Yes Living Will/HPOA: does not have LW or HCPOA . Interested in more information and would like to talk with SW to complete paperwork. Pt states he would like for his cousin, Mariam, to be his Healthcare POA. LNOK: cousin, Mariam. Living Arrangements: Lives in a duplex w/13 steps to enter w/rails. Once he is in unit, everything is on one floor. Pt's cousin, Mariam, lives with him and he states she is disabled, and he helps to care for her. Inquired of pt who is helping to take care of her while he is in the hospital and he states she is able to care for herself while he is not there. He states she is still able to drive. Transportation: Pt states drives self and states no transportation concerns at this time. Pt's cousin, Mariam, also drives and he states if he does discharge home, that he thinks she should be able to take him home. DME: has the following DME: shower chair, hand held shower, walker, rollator, W/C. Pt states he may be interested in a medical alert button but he would like to talk with his CM through [employer] to see if he can get one covered under insurance. HHC/SNF: Hx of TCU. States also history of HHC but does not remember name of agency. PT/OT notes have been reviewed and SNF is recommended. Discussed discharge planning with pt and therapies recommendations. Pt states he was hoping to be able to go home @ discharge, but realizes he is weak and will need wound care @ discharge, so he is willing to go to SNF if recommended. He states he prefers TCU. KALANI Rondon, made aware. She was also made aware pt would like to talk with SW for AD. CM/SW to follow for further discharge planning/needs. Advised pt to ask for CM/SW if any further questions/concerns/needs arise. Voices understanding. PLAN: ELEANOR HENDERSON RN CM
--- NOTE | 2019-07-19 15:56 | CASEMGMT ---
KALANI spoke w/CM, pt would like to go to TCU when ready, pt will not be ready for discharge before Tuesday. KALANI called Lila in TCU, referral made. She anticipates will have a bed by Tuesday, will let SW on PCU know tomorrow for certain. KALANI will continue to follow. DARIO Heredia
[2019-07-19 17:00] LABS: Bedside Glucose 297 mg/dL (70-110)
[2019-07-19] MEDS: HYDROcodone Bitartrate/Apap 5/325 Tablet PO (20:14)
[2019-07-19] MEDS: Atorvastatin Calcium 40 MG Tablet PO (21:00)
[2019-07-19 21:36] LABS: Bedside Glucose 295 mg/dL (70-110)
[2019-07-20] VITALS (9 sets, daily range): BP systolic 117–154; BP diastolic 56–76; PULSE 84–104; RESP 15–30; TEMP 36.6–36.9; O2SAT 94–98
[2019-07-20] MEDS: 0.9% Saline Lock 10 ML Syringe IV (05:47)
[2019-07-20] MEDS: Gabapentin 600 MG Tablet PO ×3 (06:49→21:41)
[2019-07-20 06:52] LABS: Absolute Lymphocyte Count 2.06 X10^3/uL (0.83-4.51); Absolute Neutrophil Count 5.3 X10^3/uL (2.0-7.7); Basophil# 0.05 X10^3/uL; Basophil% 0.6 % (0-1); Eosinophil# 0.14 X10^3/uL; Eosinophils% 1.7 % (0-5); Hematocrit 34.6 % (40-54); Hemoglobin 10.9 g/dL (13.0-16.5); Lymphocyte # 2.06 X10^3/ul (4.0); Lymphocyte % 24.4 % (19-41); Mean Corp Hgb Conc 31.5 g/dL (32-36); Mean Corpuscular Hgb 28.5 pg (27.0-32.0); Mean Corpuscular Volume 90.6 fL (80-94); Mean Platelet Vol. 9.6 fl (6.2-12.0); Monocyte# 0.82 X10^3/uL; Monocyte% 9.7 % (0-10); NRBC Flagged by Analyzer 0 % (0-5); Neutrophil # 5.34 X10^3/uL (2.7-7.7); Neutrophil % 63.1 % (47-70); Platelet Count 299 K/mm3 (150-450); RBC Distribution Width CV 13.2 % (11.6-14.6); RBC Distribution Width SD 43.1 fl (35.1-43.9); Red Blood Count 3.82 M/mm3 (4.6-6.2); White Blood Count 8.5 K/mm3 (4.4-11.0)
[2019-07-20 06:57] LABS: International Normalized Ratio 1.3; Prothrombin Time (Protime)PT. 15.7 SECONDS (11.7-14.9)
[2019-07-20 07:17] LABS: Anion Gap 4 (5-15); BUN 10 mg/dL (7-18); BUN/Creat Ratio 14.5 RATIO (10-20); Calcium,Total 8.7 mg/dL (8.5-10.1); Chloride 111 mmol/L (98-107); Creatinine, Serum 0.69 mg/dL (0.70-1.30); EST Glomerular Filtration Rate 122 mL/min (>60); Est Glom Filt Rate - Afr Amer 148 mL/min (>60); Estimated Creatinine Clearance 77.39 ml/min; Glucose 204 mg/dL (74-106); Magnesium 1.9 mg/dL (1.6-2.6); Potassium 3.9 mmol/L (3.5-5.1); Sodium Level 140 mmol/L (136-145)
[2019-07-20 07:45] LABS: Bedside Glucose 204 mg/dL (70-110)
[2019-07-20] MEDS: Ipratropium/Albuterol Sulfate 3 ML AMPUL.NEB INHALATION ×3 (07:45→19:49)
[2019-07-20] MEDS: Insulin Lispro 100 UNIT/ML INSULN.PEN SC ×7 (08:55→21:49)
[2019-07-20] MEDS: dilTIAZem CD 180 MG Capsule PO (09:01)
[2019-07-20] MEDS: Pantoprazole Sodium 40 MG Tablet PO (09:01)
[2019-07-20] MEDS: Famotidine 20 MG Tablet PO ×2 (09:01→21:41)
[2019-07-20] MEDS: Lisinopril 20 MG Tablet PO (09:01)
--- NOTE | 2019-07-20 09:08 | NURSING ---
wound photo: right foot s/p right open hallux amputation
--- NOTE | 2019-07-20 09:43 | PCM.PN.HOSP ---
Patient Problems: Active and Suspected Problems Diabetic foot infection (Acute) Gangrene of toe (Acute) Diabetic ulcer of right foot (Acute) Osteomyelitis (Acute) PVD (peripheral vascular disease) (Acute) Type 2 diabetes mellitus with diabetic polyneuropathy (Acute) Reason for Visit: Follow-up ; right hallux amputation. Subjective: Patient was seen in consultation by Dr. Shah on 07/19/2019 on account of his peripheral vascular disease. Patient is known to have left SFA occlusion with previous bypass plans for patient to undergo angiogram regarding suspected occluded right SFA with patient being on Coumadin this was held switched to Lovenox with plans to resume after his angiogram which is scheduled either as inpatient or when patient is on the transitional care unit on 07/25/2019. Objective: GENERAL: cooperative HEENT: Atraumatic; EYES; Anicteric, NECK; supple, normal thyroid, RESPIRATORY: Diminished to auscultation CARDIOVASCULAR: Regular S1 S2, GI: soft, normoactive bowel sounds, : No Renal angle tenderness; EXTREMITIES: Right foot in surgical dressing MUSCULOSKELETAL: no muscle waisting NEURO: Awake; no lateralizing signs. SKIN: No Rash PSYCH; Flat affect Vitals/I&O's: Vital Signs Temp Pulse Resp BP Pulse Ox 97.9 F 104 H 18 154/76 H 95 07/20/19 09:30 07/20/19 09:30 07/20/19 09:30 07/20/19 09:30 07/20/19 09:30 Oxygen Delivery Method Room Air Weight: 97.8 kg Body Mass Index (BMI) 30.0 Finger Stick Blood Glucose 239 Intake and Output for Last 24 Hours 07/18/19 07/19/19 07/20/19 23:59 23:59 23:59 Intake Total 3915.41 / 4275.41 2544 / 2544 474 / 474 Output Total 1600 / 2625 4000 / 4000 700 / 700 Balance 2315.41 / 1650.41 -1456 / -1456 -226 / -226 Microbiology Past 72 Hours 07/18/19 12:20 Bone - Right Foot Gram Stain - Final 07/18/19 12:20 Bone - Right Foot Wound Culture - Preliminary GNR lactose credit risk modeler Mixed Gram Positive Organisms 07/18/19 12:20 Bone - Right Foot Anaerobic Culture - Preliminary Checking for anaerobes, further studies to follow. 07/17/19 20:20 Wound - Toe Gram Stain - Final 07/17/19 20:20 Wound - Toe Wound Culture - Final Klebsiella pneumoniae sp pneum Staphylococcus epidermidis Streptococcus agalactiae (B) 07/17/19 20:20 Wound - Toe Anaerobic Culture - Preliminary Checking for anaerobes, further studies to follow. 07/18/19 12:20 Bone - Right Foot Gram Stain - Final 07/18/19 12:20 Bone - Right Foot Wound Culture - Preliminary No growth-Final to follow 07/18/19 12:20 Bone - Right Foot Anaerobic Culture - Preliminary No growth in 48 hours. Laboratory Results 07/19/19 11:07: POC Glucose 339 H 07/19/19 16:51: POC Glucose 297 H 07/19/19 21:01: POC Glucose 295 H 07/20/19 06:10: WBC 8.5, RBC 3.82 L, Hgb 10.9 L, Hct 34.6 L, MCV 90.6, MCH 28.5, MCHC 31.5 L, RDW Std Deviation 43.1, RDW Coeff of Estrada 13.2, Plt Count 299, MPV 9.6, Immature Gran % (Auto) 0.500, Neut % (Auto) 63.1, Lymph % (Auto) 24.4, [place] % (Auto) 9.7, Eos % (Auto) 1.7, Baso % (Auto) 0.6, Absolute Neuts (auto) 5.3, Absolute Lymphs (auto) 2.06, Nucleated RBC % 0 07/20/19 06:10: PT 15.7 H, INR 1.3 07/20/19 06:10: Sodium 140, Potassium 3.9, Chloride 111 H, Carbon Dioxide 25.0, Anion Gap 4 L, BUN 10, Creatinine 0.69 L, Estim Creat Clear Calc 77.39, Est GFR (MDRD) Af Amer 148, Est GFR (MDRD) Non-Af 122, BUN/Creatinine Ratio 14.5, Glucose 204 H, Calcium 8.7, Magnesium 1.9 07/20/19 07:43: POC Glucose 204 H Current Medications Acetaminophen (Tylenol) 650 mg PO Q6H PRN PRN PRN Reason: Non-cardiac pain (-04/26) Hydrocodone Bitart/Acetaminophen ([place] 5mg-325mg) 1 - 2 tablet PO Q4H PRN PRN PRN Reason: Pain Score 4-10/10 Last Admin: 07/19/19 20:14 Dose: 2 tablet Documented by: Al Hydroxide/Mg Hydroxide (Mylanta Ii) 15 - 30 ml PO Q4H PRN PRN PRN Reason: INDIGESTION Albuterol Sulfate (Ventolin Aerosols) 2.5 mg INHALATION Q2H PRN PRN PRN Reason: dyspnea, wheezing Albuterol/Ipratropium (Duoneb) 3 ml INHALATION Q6HWA.RT [facility] Last Admin: 07/20/19 07:45 Dose: 3 ml Documented by: Atorvastatin Calcium (Lipitor) 40 mg PO QHS [facility] Last Admin: 07/19/19 21:00 Dose: 40 mg Documented by: Diltiazem HCl (Cardizem Cd) 180 mg PO DAILY [facility] Last Admin: 07/20/19 09:01 Dose: 180 mg Documented by: Famotidine (Pepcid) 20 mg PO BID [facility] Last Admin: 07/20/19 09:01 Dose: 20 mg Documented by: Gabapentin (Neurontin) 600 mg PO TID [facility] Last Admin: 07/20/19 06:49 Dose: 600 mg Documented by: Glucagon () 1 mg IM .X1 PRN PRN Reason: Hypoglycemia Guaifenesin (Robitussin) 20 ml PO Q4H PRN PRN PRN Reason: COUGH Hydralazine HCl (Apresoline Iv) 10 mg IV Q4H PRN PRN PRN Reason: SBP > 160 Dextrose (Dextrose 10%-Water) 250 mls @ 999 mls/hr IV .Q16M PRN; Protocol PRN Reason: HYPOGLYCEMIA Ampicillin Sodium/Sulbactam (Sodium 3 gm/ Sodium Chloride) 112 mls @ 150 mls/hr IV Q6 [facility] Last Infusion: 07/20/19 06:29 Dose: Infused Documented by: Insulin Glargine (Lantus (Bkc)) 20 units SC BID [facility] Last Admin: 07/20/19 08:54 Dose: 20 units Documented by: Insulin Human Lispro (Humalog Kwikpen (Bkc)) 5 unit SC TIDAC [facility] Last Admin: 07/20/19 08:55 Dose: 5 unit Documented by: Insulin Human Lispro (Humalog Kwikpen (Bkc)) 0 unit SC ACHS [facility]; Protocol Last Admin: 07/20/19 08:55 Dose: 2 units Documented by: Lisinopril (Zestril) 20 mg PO DAILY [facility] Last Admin: 07/20/19 09:01 Dose: 20 mg Documented by: Magnesium Hydroxide (Milk Of Magnesia) 30 ml PO DAILY PRN PRN Reason: Constipation Morphine Sulfate () 1 - 2 mg IV Q4H PRN PRN PRN Reason: Pain Score 1-10/10 Last Admin: 07/19/19 07:39 Dose: 2 mg Documented by: Multivitamins (Multivitamin) 1 tablet PO DAILY@1200 [facility] Last Admin: 07/19/19 11:08 Dose: 1 tablet Documented by: Nicotine (Nicoderm Cq (Pbkc)) 21 mg TRANSDERM. DAILY PRN PRN Reason: Nicotine Craving Nitroglycerin (Nitrostat) 0.4 mg SUBLINGUAL Q5M PRN PRN Reason: CARDIAC/CHEST PAIN Ondansetron HCl (Zofran) 4 mg IV Q8H PRN PRN PRN Reason: NAUSEA/VOMITING Pantoprazole Sodium (Protonix) 40 mg PO DAILY [facility] Last Admin: 07/20/19 09:01 Dose: 40 mg Documented by: Potassium Chloride (K-Dur) 20 meq PO TIDCM [facility] Last Admin: 07/20/19 09:01 Dose: 20 meq Documented by: Psyllium Hydrophilic Mucilloid (Metamucil) 1 packet PO DAILY PRN PRN PRN Reason: Constipation Senna/Docusate Sodium (Senokot-S, Donna-Colace) 2 tablet PO BID PRN PRN PRN Reason: Constipation Sodium Chloride () 10 - 40 ml IV UD PRN PRN Reason: SALINE FLUSH Last Admin: 07/20/19 05:47 Dose: 10 ml Documented by: Sodium Hypochlorite (Dakins Solution 0.25% (1/2 Strength)) 1 applic TOPICAL BID [facility]; Protocol Temazepam (Restoril) 15 mg PO QHS PRN PRN PRN Reason: INSOMNIA Last Admin: 07/18/19 22:28 Dose: 15 mg Documented by: Throat Lozenges (Cepacol Sore Throat Lozenge) 1 lozenge MUCOUS MEM Q2H PRN PRN PRN Reason: Sore throat or cough Warfarin Sodium (Coumadin (Pbkc)) 8 mg PO DAILY@1700 [facility] Last Admin: 07/19/19 16:52 Dose: 8 mg Documented by: STROKE Vital Signs/Narrative: Vital Signs Temp Pulse Resp BP Pulse Ox 07/20/19 09:30 97.9 F 104 H 18 154/76 H 95 07/20/19 07:45 96 30 H 94 Medical Necessity - Tobacco Use Smoking Status: Current every day smoker Tobacco Use: Cigarettes Assessment/Plan All Active Problems Screen for colon cancer (Acute) Diabetic foot infection (Acute) Gangrene of toe (Acute) Diabetic ulcer of right foot (Acute) Osteomyelitis (Acute) PVD (peripheral vascular disease) (Acute) Type 2 diabetes mellitus with diabetic polyneuropathy (Acute) In brief, patient is a 68-year-old male with diabetes mellitus type 2 with poor control and complications including diabetic neuropathy presented with gangrene involving the right great toe. Antibiotics started per protocol consult placed to podiatry with plans for patient to undergo amputation of the infected toe 1. Gangrene involving the right big toe with early signs of osteomyelitis ~Patient underwent open amputation of the right hallux on 07/18/2019. Cultures sent results pending ?07/20/2019; patient cultures so far positive for Klebsiella, staph epi and strep agalactiae (B) patient antibiotic therapy adjusted by Dr. Llamas with ID patient is currently on Unasyn. 2. Diabetes mellitus type 2 uncontrolled with A1c of 13.3 and complications including diabetic polyneuropathy ~ Placed on long acting insulin, Accu-Cheks a.c. and at bedtime and covered with sliding scale insulin 3. Dyslipidemia ~patient is on statin therapy, continued at home dose 4. Hypertension ~ blood pressure controlled, home medications continued with dose adjustment as needed 5. GERD ?Patient is on famotidine did continue 6. COPD ?Currently not in exacerbation did continue patient's home aerosol regimen 7. Peripheral vascular disease ?Patient was seen in consultation by Dr. Shah on 07/19/2019 on account of his peripheral vascular disease. Patient is known to have left SFA occlusion with previous bypass plans for patient to undergo angiogram regarding suspected occluded right SFA with patient being on Coumadin this was held switched to Lovenox with plans to resume after his angiogram which is scheduled either as inpatient or when patient is on the transitional care unit on 07/25/2019. 8 .History of previous DVTs ?Patient is on systemic anticoagulation with Coumadin. On admission was 2.6. Patient did receive FFP prior to his procedure. Coumadin started on 07/19/2019 with subsequent monitoring of ?With patient planned angiogram on 07/25/2019 Coumadin was held beginning 07/20/2019. Patient started on Lovenox which can easily be stopped prior to patient's anticipated procedure. Microbiology 07/18/19 12:20 Bone - Right Foot Gram Stain - Final 07/18/19 12:20 Bone - Right Foot Wound Culture - Preliminary Klebsiella pneumoniae sp pneum Mixed Gram Positive Organisms 07/18/19 12:20 Bone - Right Foot Anaerobic Culture - Preliminary Checking for anaerobes, further studies to follow. 07/17/19 20:20 Wound - Toe Gram Stain - Final 07/17/19 20:20 Wound - Toe Wound Culture - Final Klebsiella pneumoniae sp pneum Staphylococcus epidermidis Streptococcus agalactiae (B) 07/17/19 20:20 Wound - Toe Anaerobic Culture - Preliminary Checking for anaerobes, further studies to follow. 07/18/19 12:20 Bone - Right Foot Gram Stain - Final 07/18/19 12:20 Bone - Right Foot Wound Culture - Preliminary No growth-Final to follow 07/18/19 12:20 Bone - Right Foot Anaerobic Culture - Preliminary No growth in 48 hours. Code Visit Inpatient E&M: 13628 Subs Hosp L2
[2019-07-20 11:16] LABS: Bedside Glucose 283 mg/dL (70-110)
--- NOTE | 2019-07-20 11:45 | PN.ID_ITS ---
Patient Problems: Active and Suspected Problems Diabetic foot infection (Acute) Gangrene of toe (Acute) Diabetic ulcer of right foot (Acute) Osteomyelitis (Acute) PVD (peripheral vascular disease) (Acute) Type 2 diabetes mellitus with diabetic polyneuropathy (Acute) Subjective: Patient out of bed to a chair overall clinically stable. Tolerating Unasyn well. No fevers. No gastrointestinal distress. Cardiopulmonary status stable. Objective: Alert does not appear toxic lungs are clear heart exam S1-S2 abdomen soft nontender right foot dressings are in place. I did review the photograph of the right foot taken by the wound care nurse. - Physical Exam Vitals/I&O's: Vital Signs Temp Pulse Resp BP Pulse Ox 97.9 F 104 H 18 154/76 H 95 07/20/19 09:30 07/20/19 09:30 07/20/19 09:30 07/20/19 09:30 07/20/19 09:30 Oxygen Delivery Method Room Air Weight: 97.8 kg Body Mass Index (BMI) 30.0 Finger Stick Blood Glucose 239 Intake and Output for Last 24 Hours 07/18/19 07/19/19 07/20/19 23:59 23:59 23:59 Intake Total 3915.41 / 4275.41 2544 / 2544 834 / 834 Output Total 1600 / 2625 4000 / 4000 1200 / 1200 Balance 2315.41 / 1650.41 -1456 / -1456 -366 / -366 Microbiology Past 72 Hours 07/18/19 12:20 Bone - Right Foot Gram Stain - Final 07/18/19 12:20 Bone - Right Foot Wound Culture - Preliminary Klebsiella pneumoniae sp pneum Staphylococcus aureus Streptococcus group B Streptococcus group D Staphylococcus species 07/18/19 12:20 Bone - Right Foot Anaerobic Culture - Preliminary Checking for anaerobes, further studies to follow. 07/17/19 20:20 Wound - Toe Gram Stain - Final 07/17/19 20:20 Wound - Toe Wound Culture - Final Klebsiella pneumoniae sp pneum Staphylococcus epidermidis Streptococcus agalactiae (B) 07/17/19 20:20 Wound - Toe Anaerobic Culture - Preliminary Checking for anaerobes, further studies to follow. 07/18/19 12:20 Bone - Right Foot Gram Stain - Final 07/18/19 12:20 Bone - Right Foot Wound Culture - Preliminary No growth-Final to follow 07/18/19 12:20 Bone - Right Foot Anaerobic Culture - Preliminary No growth in 48 hours. Laboratory Results 07/19/19 16:51: POC Glucose 297 H 07/19/19 21:01: POC Glucose 295 H 07/20/19 06:10: WBC 8.5, RBC 3.82 L, Hgb 10.9 L, Hct 34.6 L, MCV 90.6, MCH 28.5, MCHC 31.5 L, RDW Std Deviation 43.1, RDW Coeff of Estrada 13.2, Plt Count 299, MPV 9.6, Immature Gran % (Auto) 0.500, Neut % (Auto) 63.1, Lymph % (Auto) 24.4, [place] % (Auto) 9.7, Eos % (Auto) 1.7, Baso % (Auto) 0.6, Absolute Neuts (auto) 5.3, Absolute Lymphs (auto) 2.06, Nucleated RBC % 0 07/20/19 06:10: PT 15.7 H, INR 1.3 07/20/19 06:10: Sodium 140, Potassium 3.9, Chloride 111 H, Carbon Dioxide 25.0, Anion Gap 4 L, BUN 10, Creatinine 0.69 L, Estim Creat Clear Calc 77.39, Est GFR (MDRD) Af Amer 148, Est GFR (MDRD) Non-Af 122, BUN/Creatinine Ratio 14.5, Glucose 204 H, Calcium 8.7, Magnesium 1.9 07/20/19 07:43: POC Glucose 204 H 07/20/19 11:13: POC Glucose 283 H Current Medications Acetaminophen (Tylenol) 650 mg PO Q6H PRN PRN PRN Reason: Non-cardiac pain (4-10/10) Hydrocodone Bitart/Acetaminophen ([place] 5mg-325mg) 1 - 2 tablet PO Q4H PRN PRN PRN Reason: Pain Score 4-10/10 Last Admin: 07/19/19 20:14 Dose: 2 tablet Documented by: Al Hydroxide/Mg Hydroxide (Mylanta Ii) 15 - 30 ml PO Q4H PRN PRN PRN Reason: INDIGESTION Albuterol Sulfate (Ventolin Aerosols) 2.5 mg INHALATION Q2H PRN PRN PRN Reason: dyspnea, wheezing Albuterol/Ipratropium (Duoneb) 3 ml INHALATION Q6HWA.RT [facility] Last Admin: 07/20/19 07:45 Dose: 3 ml Documented by: Atorvastatin Calcium (Lipitor) 40 mg PO QHS [facility] Last Admin: 07/19/19 21:00 Dose: 40 mg Documented by: Diltiazem HCl (Cardizem Cd) 180 mg PO DAILY [facility] Last Admin: 07/20/19 09:01 Dose: 180 mg Documented by: Famotidine (Pepcid) 20 mg PO BID [facility] Last Admin: 07/20/19 09:01 Dose: 20 mg Documented by: Gabapentin (Neurontin) 600 mg PO TID [facility] Last Admin: 07/20/19 06:49 Dose: 600 mg Documented by: Glucagon () 1 mg IM .X1 PRN PRN Reason: Hypoglycemia Guaifenesin (Robitussin) 20 ml PO Q4H PRN PRN PRN Reason: COUGH Hydralazine HCl (Apresoline Iv) 10 mg IV Q4H PRN PRN PRN Reason: SBP > 160 Dextrose (Dextrose 10%-Water) 250 mls @ 999 mls/hr IV .Q16M PRN; Protocol PRN Reason: HYPOGLYCEMIA Ampicillin Sodium/Sulbactam (Sodium 3 gm/ Sodium Chloride) 112 mls @ 150 mls/hr IV Q6 [facility] Last Infusion: 07/20/19 06:29 Dose: Infused Documented by: Insulin Glargine (Lantus (Bkc)) 20 units SC BID [facility] Last Admin: 07/20/19 08:54 Dose: 20 units Documented by: Insulin Human Lispro (Humalog Kwikpen (Bkc)) 5 unit SC TIDAC [facility] Last Admin: 07/20/19 08:55 Dose: 5 unit Documented by: Insulin Human Lispro (Humalog Kwikpen (Bkc)) 0 unit SC ACHS [facility]; Protocol Last Admin: 07/20/19 08:55 Dose: 2 units Documented by: Lisinopril (Zestril) 20 mg PO DAILY [facility] Last Admin: 07/20/19 09:01 Dose: 20 mg Documented by: Magnesium Hydroxide (Milk Of Magnesia) 30 ml PO DAILY PRN PRN Reason: Constipation Morphine Sulfate () 1 - 2 mg IV Q4H PRN PRN PRN Reason: Pain Score 1-10/10 Last Admin: 07/19/19 07:39 Dose: 2 mg Documented by: Multivitamins (Multivitamin) 1 tablet PO DAILY@1200 [facility] Last Admin: 07/19/19 11:08 Dose: 1 tablet Documented by: Nicotine (Nicoderm Cq (Pbkc)) 21 mg TRANSDERM. DAILY PRN PRN Reason: Nicotine Craving Nitroglycerin (Nitrostat) 0.4 mg SUBLINGUAL Q5M PRN PRN Reason: CARDIAC/CHEST PAIN Ondansetron HCl (Zofran) 4 mg IV Q8H PRN PRN PRN Reason: NAUSEA/VOMITING Pantoprazole Sodium (Protonix) 40 mg PO DAILY [facility] Last Admin: 07/20/19 09:01 Dose: 40 mg Documented by: Potassium Chloride (K-Dur) 20 meq PO TIDCM [facility] Last Admin: 07/20/19 09:01 Dose: 20 meq Documented by: Psyllium Hydrophilic Mucilloid (Metamucil) 1 packet PO DAILY PRN PRN PRN Reason: Constipation Senna/Docusate Sodium (Senokot-S, Donna-Colace) 2 tablet PO BID PRN PRN PRN Reason: Constipation Sodium Chloride () 10 - 40 ml IV UD PRN PRN Reason: SALINE FLUSH Last Admin: 07/20/19 05:47 Dose: 10 ml Documented by: Sodium Hypochlorite (Dakins Solution 0.25% (1/2 Strength)) 1 applic TOPICAL BID [facility]; Protocol Temazepam (Restoril) 15 mg PO QHS PRN PRN PRN Reason: INSOMNIA Last Admin: 07/18/19 22:28 Dose: 15 mg Documented by: Throat Lozenges (Cepacol Sore Throat Lozenge) 1 lozenge MUCOUS MEM Q2H PRN PRN PRN Reason: Sore throat or cough Warfarin Sodium (Coumadin (Pbkc)) 8 mg PO DAILY@1700 [facility] Last Admin: 07/19/19 16:52 Dose: 8 mg Documented by: Medical Necessity - Tobacco Use Smoking Status: Current every day smoker Tobacco Use: Cigarettes Route of nutrition/ use of supplements: [] Nutritional Intake: [] IV Site: [] Abreu Catheter: [] - Assessment/Plan 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 Polymicrobial process. At this point we will continue Unasyn 3 g IV every 6 hours. Vascular surgery note also reviewed.
[2019-07-20] MEDS: Multivitamins,Therapeutic Tablet 1 TABLET PO (12:02)
[2019-07-20] MEDS: HYDROcodone Bitartrate/Apap 5/325 Tablet PO ×2 (12:07→17:47)
[2019-07-20] MEDS: DAKIN'S SOL HALF STRENGTH (=0.25%) 1 APPLIC TOPICAL (12:09)
--- NOTE | 2019-07-20 13:04 | CASEMGMT ---
KALANI spoke with Lila in TCU and she will not have any beds available for patient. SW spoke with patient and his cousin. They wanted to complete advance directives. SW completed documents, copies made and given to patient along with originals. A copy was also placed in chart. KALANI then told patient that TCU will not have a bed for him at d/c. KALANI gave him a list of other facilities that are in network with his insurance. His cousin mentioned [place]. Patient wanted to look at the list. His lunch was just delivered. SW will check back with patient. Ashlyn ROBERTS MSW
--- NOTE | 2019-07-20 13:39 | CASEMGMT ---
KALANI checked back with patient and he would like SW to fax a referral to [facility]. Referral was faxed and KALANI left a voice mail with referral. Plan: TCU does not have a bed for patient so KALANI faxed a referral to [facility]. Ashlyn ROBERTS CLERICAL MANAGER
--- NOTE | 2019-07-20 15:37 | CASEMGMT ---
KALANI received a phone call from [facility] and they can accept patient. However, if anything major changes over the weekend they would have to re-evaluate. KALANI let patient know this information. Plan: [facility] pending insurance authorization. Ashlyn ROBERTS MSW
--- NOTE | 2019-07-20 16:00 | PN_ITS ---
Patient Problems: Active and Suspected Problems Diabetic foot infection (Acute) Gangrene of toe (Acute) Diabetic ulcer of right foot (Acute) Osteomyelitis (Acute) PVD (peripheral vascular disease) (Acute) Type 2 diabetes mellitus with diabetic polyneuropathy (Acute) Subjective: Patient was carefully examined and evaluated resting in bed this afternoon POD #2 s/p open right hallux amputation. He continues to relate his pain is controlled and he is resting comfortably in bed. He had no acute events over night. No strike through to outer dressing again today. Patient denies any feelings of nausea, vomiting, fever, or chills. - Physical Exam Vitals/I&O's: Vital Signs Temp Pulse Resp BP Pulse Ox 97.9 F 96 20 H 154/76 H 95 07/20/19 09:30 07/20/19 13:42 07/20/19 13:42 07/20/19 09:30 07/20/19 09:30 Oxygen Delivery Method Room Air Weight: 97.8 kg Body Mass Index (BMI) 30.0 Finger Stick Blood Glucose 239 Intake and Output for Last 24 Hours 07/18/19 07/19/19 07/20/19 23:59 23:59 23:59 Intake Total 3915.41 / 4275.41 2544 / 2544 946 / 946 Output Total 1600 / 2625 4000 / 4000 1200 / 1200 Balance 2315.41 / 1650.41 -1456 / -1456 -254 / -254 General: Alert, Oriented x3, Cooperative, No apparent distress Extremities: No cyanosis, No Calf Tenderness - Negative Jarett and Warren signs bilateral, Diminished Peripheral Pulses - DP and PT pulses not easily palpable bilateral Skin: - - Open right hallux amputation surgical site to right foot. Right first met head can be visualized and remains healthy in appearance. There continues to be no necrotic appearing tissue appreciated today. The remaining tissue in the surgical site appears healthy and granular in appearance. There is no malodor and no purulence appreciated today. Slight erythema to the distal area of the surgery. Musculoskeletal: Tenderness - Very minor tenderness with manipulation of surgical site Neurological: - - Epicritic sensation grossly absent to bilateral lower extremities consistent with patient's diabetic status Psych/Mental Status: Normal Affect, Appropriate Microbiology Past 72 Hours 07/18/19 12:20 Bone - Right Foot Gram Stain - Final 07/18/19 12:20 Bone - Right Foot Wound Culture - Preliminary Klebsiella pneumoniae sp pneum Staphylococcus aureus Streptococcus group B Streptococcus group D Staphylococcus species 07/18/19 12:20 Bone - Right Foot Anaerobic Culture - Preliminary Checking for anaerobes, further studies to follow. 07/17/19 20:20 Wound - Toe Gram Stain - Final 07/17/19 20:20 Wound - Toe Wound Culture - Final Klebsiella pneumoniae sp pneum Staphylococcus epidermidis Streptococcus agalactiae (B) 07/17/19 20:20 Wound - Toe Anaerobic Culture - Preliminary Checking for anaerobes, further studies to follow. 07/18/19 12:20 Bone - Right Foot Gram Stain - Final 07/18/19 12:20 Bone - Right Foot Wound Culture - Preliminary No growth-Final to follow 07/18/19 12:20 Bone - Right Foot Anaerobic Culture - Preliminary No growth in 48 hours. Laboratory Results 07/19/19 16:51: POC Glucose 297 H 07/19/19 21:01: POC Glucose 295 H 07/20/19 06:10: WBC 8.5, RBC 3.82 L, Hgb 10.9 L, Hct 34.6 L, MCV 90.6, MCH 28.5, MCHC 31.5 L, RDW Std Deviation 43.1, RDW Coeff of Estrada 13.2, Plt Count 299, MPV 9.6, Immature Gran % (Auto) 0.500, Neut % (Auto) 63.1, Lymph % (Auto) 24.4, [place] % (Auto) 9.7, Eos % (Auto) 1.7, Baso % (Auto) 0.6, Absolute Neuts (auto) 5.3, Absolute Lymphs (auto) 2.06, Nucleated RBC % 0 07/20/19 06:10: PT 15.7 H, INR 1.3 07/20/19 06:10: Sodium 140, Potassium 3.9, Chloride 111 H, Carbon Dioxide 25.0, Anion Gap 4 L, BUN 10, Creatinine 0.69 L, Estim Creat Clear Calc 77.39, Est GFR (MDRD) Af Amer 148, Est GFR (MDRD) Non-Af 122, BUN/Creatinine Ratio 14.5, Glucose 204 H, Calcium 8.7, Magnesium 1.9 07/20/19 07:43: POC Glucose 204 H 07/20/19 11:13: POC Glucose 283 H Current Medications Acetaminophen (Tylenol) 650 mg PO Q6H PRN PRN PRN Reason: Non-cardiac pain (4-10/10) Hydrocodone Bitart/Acetaminophen ([place] 5mg-325mg) 1 - 2 tablet PO Q4H PRN PRN PRN Reason: Pain Score 4-10/10 Last Admin: 07/20/19 12:07 Dose: 2 tablet Documented by: Al Hydroxide/Mg Hydroxide (Mylanta Ii) 15 - 30 ml PO Q4H PRN PRN PRN Reason: INDIGESTION Albuterol Sulfate (Ventolin Aerosols) 2.5 mg INHALATION Q2H PRN PRN PRN Reason: dyspnea, wheezing Albuterol/Ipratropium (Duoneb) 3 ml INHALATION Q6HWA.RT [facility] Last Admin: 07/20/19 13:42 Dose: 3 ml Documented by: Atorvastatin Calcium (Lipitor) 40 mg PO QHS [facility] Last Admin: 07/19/19 21:00 Dose: 40 mg Documented by: Diltiazem HCl (Cardizem Cd) 180 mg PO DAILY [facility] Last Admin: 07/20/19 09:01 Dose: 180 mg Documented by: Famotidine (Pepcid) 20 mg PO BID [facility] Last Admin: 07/20/19 09:01 Dose: 20 mg Documented by: Gabapentin (Neurontin) 600 mg PO TID [facility] Last Admin: 07/20/19 12:02 Dose: 600 mg Documented by: Glucagon () 1 mg IM .X1 PRN PRN Reason: Hypoglycemia Guaifenesin (Robitussin) 20 ml PO Q4H PRN PRN PRN Reason: COUGH Hydralazine HCl (Apresoline Iv) 10 mg IV Q4H PRN PRN PRN Reason: SBP > 160 Dextrose (Dextrose 10%-Water) 250 mls @ 999 mls/hr IV .Q16M PRN; Protocol PRN Reason: HYPOGLYCEMIA Ampicillin Sodium/Sulbactam (Sodium 3 gm/ Sodium Chloride) 112 mls @ 150 mls/hr IV Q6 [facility] Last Infusion: 07/20/19 13:28 Dose: Infused Documented by: Insulin Glargine (Lantus ([facility])) 20 units SC BID [facility] Last Admin: 07/20/19 08:54 Dose: 20 units Documented by: Insulin Human Lispro (Humalog Kwikpen ([facility])) 5 unit SC TIDAC [facility] Last Admin: 07/20/19 12:02 Dose: 5 unit Documented by: Insulin Human Lispro (Humalog Kwikpen (Bkc)) 0 unit SC ACHS [facility]; Protocol Last Admin: 07/20/19 12:01 Dose: 4 units Documented by: Lisinopril (Zestril) 20 mg PO DAILY [facility] Last Admin: 07/20/19 09:01 Dose: 20 mg Documented by: Magnesium Hydroxide (Milk Of Magnesia) 30 ml PO DAILY PRN PRN Reason: Constipation Morphine Sulfate () 1 - 2 mg IV Q4H PRN PRN PRN Reason: Pain Score 1-10/10 Last Admin: 07/19/19 07:39 Dose: 2 mg Documented by: Multivitamins (Multivitamin) 1 tablet PO DAILY@1200 [facility] Last Admin: 07/20/19 12:02 Dose: 1 tablet Documented by: Nicotine (Nicoderm Cq ([facility])) 21 mg TRANSDERM. DAILY PRN PRN Reason: Nicotine Craving Nitroglycerin (Nitrostat) 0.4 mg SUBLINGUAL Q5M PRN PRN Reason: CARDIAC/CHEST PAIN Ondansetron HCl (Zofran) 4 mg IV Q8H PRN PRN PRN Reason: NAUSEA/VOMITING Pantoprazole Sodium (Protonix) 40 mg PO DAILY [facility] Last Admin: 07/20/19 09:01 Dose: 40 mg Documented by: Potassium Chloride (K-Dur) 20 meq PO TIDCM [facility] Last Admin: 07/20/19 12:02 Dose: 20 meq Documented by: Psyllium Hydrophilic Mucilloid (Metamucil) 1 packet PO DAILY PRN PRN PRN Reason: Constipation Senna/Docusate Sodium (Senokot-S, Donna-Colace) 2 tablet PO BID PRN PRN PRN Reason: Constipation Sodium Chloride () 10 - 40 ml IV UD PRN PRN Reason: SALINE FLUSH Last Admin: 07/20/19 05:47 Dose: 10 ml Documented by: Sodium Hypochlorite (Dakins Solution 0.25% (1/2 Strength)) 1 applic TOPICAL BID [facility]; Protocol Last Admin: 07/20/19 12:09 Dose: 1 applicatio Documented by: Temazepam (Restoril) 15 mg PO QHS PRN PRN PRN Reason: INSOMNIA Last Admin: 07/18/19 22:28 Dose: 15 mg Documented by: Throat Lozenges (Cepacol Sore Throat Lozenge) 1 lozenge MUCOUS MEM Q2H PRN PRN PRN Reason: Sore throat or cough Warfarin Sodium (Coumadin (Pbkc)) 8 mg PO DAILY@1700 [facility] Last Admin: 07/19/19 16:52 Dose: 8 mg Documented by: Medical Necessity - Tobacco Use Smoking Status: Current every day smoker Tobacco Use: Cigarettes Assessment/Plan All Active Problems Screen for colon cancer (Acute) Diabetic foot infection (Acute) Gangrene of toe (Acute) Diabetic ulcer of right foot (Acute) Osteomyelitis (Acute) PVD (peripheral vascular disease) (Acute) Type 2 diabetes mellitus with diabetic polyneuropathy (Acute) POD #2 s/p right open hallux amputation DM II with neuropathy PVD Cellulitis - resolving Other comorbidities This patient was carefully examined and evaluated resting comfortably again this afternoon POD #2 s/p right open hallux amputation. Patient had no acute events overnight. No strikethrough appreciated outer dressing. WBC is 8.5 today. Patient is afebrile. Micro results from surgery are showing Klebsiella pneumoniae, staph aureus, strep group B, strep group D, Staphylococcus species. Patient currently on IV antibiotics per infectious disease. Surgical dressing was taken down at bedside again today and site was evaluated. There continues to be no evidence of any necrotic tissue and no evidence of any purulence or malodor. The site was carefully flushed with copious amounts of normal sterile saline. Next the surgical site was then packed with 2x2s wet with dakins solution half strength, followed by 4 x 4's, ABDs, Kerlix, and a lightly wrapped Donte bandage to hold the dressing in place but no compression was used with the Donte. Patient is to keep right lower extremity elevated to help with edema and pain control. Patient's dressing can be reinforced as noted above by nursing staff if necessary. Patient is to continue to be nonweightbearing to the right foot. If he needs to pivot or transfer very short distance he is to do this with heel weightbearing to the right side. Dr. Shah with vascular surgery plans an intervention for Tuesday the . I discussed with the patient the importance of smoking cessation as well as controlling his diabetes and its impact in helping heal the patient's surgical site. Patient understands and is aware that further surgical procedures could be possible in the future. Continued medical management and DVT prophylaxis appreciated per primary team. Podiatry will continue to follow this patient.
[2019-07-20 16:55] LABS: Bedside Glucose 290 mg/dL (70-110)
[2019-07-20] MEDS: Atorvastatin Calcium 40 MG Tablet PO (21:41)
[2019-07-20] MEDS: Temazepam 15 MG Capsule PO (21:42)
[2019-07-20 21:50] LABS: Bedside Glucose 305 mg/dL (70-110)
[2019-07-21] VITALS (8 sets, daily range): BP systolic 114–162; BP diastolic 47–80; PULSE 84–96; RESP 15–26; TEMP 36.6–36.8; O2SAT 95–98
[2019-07-21] MEDS: DAKIN'S SOL HALF STRENGTH (=0.25%) 1 APPLIC TOPICAL ×2 (00:43→06:48)
[2019-07-21] MEDS: Gabapentin 600 MG Tablet PO ×3 (05:25→20:54)
[2019-07-21 06:54] LABS: Absolute Lymphocyte Count 1.82 X10^3/uL (0.83-4.51); Absolute Neutrophil Count 4.7 X10^3/uL (2.0-7.7); Basophil# 0.02 X10^3/uL; Basophil% 0.3 % (0-1); Eosinophil# 0.15 X10^3/uL; Hematocrit 35.1 % (40-54); Lymphocyte # 1.82 X10^3/ul (4.0); Lymphocyte % 24.7 % (19-41); Mean Corp Hgb Conc 31.3 g/dL (32-36); Mean Corpuscular Hgb 28.9 pg (27.0-32.0); Mean Corpuscular Volume 92.4 fL (80-94); Mean Platelet Vol. 9.7 fl (6.2-12.0); Monocyte# 0.61 X10^3/uL; Monocyte% 8.3 % (0-10); NRBC Flagged by Analyzer 0 % (0-5); Neutrophil # 4.74 X10^3/uL (2.7-7.7); Neutrophil % 64.4 % (47-70); Platelet Count 297 K/mm3 (150-450); RBC Distribution Width CV 13.1 % (11.6-14.6); RBC Distribution Width SD 44.1 fl (35.1-43.9); White Blood Count 7.4 K/mm3 (4.4-11.0)
[2019-07-21 07:04] LABS: International Normalized Ratio 1.7; Prothrombin Time (Protime)PT. 19.5 SECONDS (11.7-14.9)
[2019-07-21] MEDS: Ipratropium/Albuterol Sulfate 3 ML AMPUL.NEB INHALATION ×3 (07:39→19:41)
[2019-07-21 07:47] LABS: Anion Gap 8 (5-15); BUN 11 mg/dL (7-18); BUN/Creat Ratio 16.8 RATIO (10-20); Calcium,Total 8.2 mg/dL (8.5-10.1); Chloride 109 mmol/L (98-107); Creatinine, Serum 0.65 mg/dL (0.70-1.30); EST Glomerular Filtration Rate 130 mL/min (>60); Est Glom Filt Rate - Afr Amer 157 mL/min (>60); Estimated Creatinine Clearance 77.39 ml/min; Glucose 215 mg/dL (74-106); Potassium 3.7 mmol/L (3.5-5.1); Sodium Level 141 mmol/L (136-145)
[2019-07-21] MEDS: Insulin Lispro 100 UNIT/ML INSULN.PEN SC ×7 (08:36→20:55)
[2019-07-21] MEDS: Pantoprazole Sodium 40 MG Tablet PO (08:37)
[2019-07-21] MEDS: Famotidine 20 MG Tablet PO ×2 (08:37→20:54)
[2019-07-21] MEDS: Lisinopril 20 MG Tablet PO (08:37)
[2019-07-21] MEDS: dilTIAZem CD 180 MG Capsule PO (08:37)
[2019-07-21 10:00] LABS: Bedside Glucose 203 mg/dL (70-110)
--- NOTE | 2019-07-21 10:09 | PN_ITS ---
Patient Problems: Active and Suspected Problems Diabetic foot infection (Acute) Gangrene of toe (Acute) Diabetic ulcer of right foot (Acute) Osteomyelitis (Acute) PVD (peripheral vascular disease) (Acute) Type 2 diabetes mellitus with diabetic polyneuropathy (Acute) Reason for Visit: Follow-up ; right hallux amputation. Subjective: Patient wound cultures reviewed polymicrobial. ID recommended continuation of Unasyn which patient is currently on. Objective: GENERAL: cooperative HEENT: Atraumatic; EYES; Anicteric, NECK; supple, normal thyroid, RESPIRATORY: Diminished to auscultation CARDIOVASCULAR: Regular S1 S2, GI: soft, normoactive bowel sounds, : No Renal angle tenderness; EXTREMITIES: Right foot in surgical dressing MUSCULOSKELETAL: no muscle waisting NEURO: Awake; no lateralizing signs. SKIN: No Rash PSYCH; Flat affect Vitals/I&O's: Vital Signs Temp Pulse Resp BP Pulse Ox 97.9 F 96 16 138/80 H 95 07/21/19 08:34 07/21/19 08:34 07/21/19 08:34 07/21/19 08:34 07/21/19 08:34 Oxygen Delivery Method Room Air Weight: 97.8 kg Body Mass Index (BMI) 30.0 Finger Stick Blood Glucose 239 Intake and Output for Last 24 Hours 07/19/19 07/20/19 07/21/19 23:59 23:59 23:59 Intake Total 2544 / 2544 1538 / 1738 724 / 724 Output Total 4000 / 4000 1950 / 2650 1600 / 1600 Balance -1456 / -1456 -412 / -912 -876 / -876 Microbiology Past 72 Hours 07/18/19 12:20 Bone - Right Foot Gram Stain - Final 07/18/19 12:20 Bone - Right Foot Wound Culture - Final No growth aerobically. 07/18/19 12:20 Bone - Right Foot Anaerobic Culture - Preliminary No growth in 48 hours. 07/18/19 12:20 Bone - Right Foot Gram Stain - Final 07/18/19 12:20 Bone - Right Foot Wound Culture - Final Klebsiella pneumoniae sp pneum Staphylococcus aureus Streptococcus agalactiae (B) Enterococcus faecalis Staphylococcus epidermidis 07/18/19 12:20 Bone - Right Foot Anaerobic Culture - Preliminary Checking for anaerobes, further studies to follow. 07/17/19 20:20 Wound - Toe Gram Stain - Final 07/17/19 20:20 Wound - Toe Wound Culture - Final Klebsiella pneumoniae sp pneum Staphylococcus epidermidis Streptococcus agalactiae (B) 07/17/19 20:20 Wound - Toe Anaerobic Culture - Preliminary Checking for anaerobes, further studies to follow. Laboratory Results 07/20/19 11:13: POC Glucose 283 H 07/20/19 16:47: POC Glucose 290 H 07/20/19 21:38: POC Glucose 305 H 07/21/19 06:02: WBC 7.4, RBC 3.80 L, Hgb 11.0 L, Hct 35.1 L, MCV 92.4, MCH 28.9, MCHC 31.3 L, RDW Std Deviation 44.1 H, RDW Coeff of Estrada 13.1, Plt Count 297, MPV 9.7, Immature Gran % (Auto) 0.300, Neut % (Auto) 64.4, Lymph % (Auto) 24.7, [place] % (Auto) 8.3, Eos % (Auto) 2.0, Baso % (Auto) 0.3, Absolute Neuts (auto) 4.7, Absolute Lymphs (auto) 1.82, Nucleated RBC % 0 07/21/19 06:02: PT 19.5 H, INR 1.7 07/21/19 06:02: Sodium 141, Potassium 3.7, Chloride 109 H, Carbon Dioxide 24.0, Anion Gap 8, BUN 11, Creatinine 0.65 L, Estim Creat Clear Calc 77.39, Est GFR (MDRD) Af Amer 157, Est GFR (MDRD) Non-Af 130, BUN/Creatinine Ratio 16.8, Glucose 215 H, Calcium 8.2 L 07/21/19 08:31: POC Glucose 203 H Current Medications Acetaminophen (Tylenol) 650 mg PO Q6H PRN PRN PRN Reason: Non-cardiac pain (4-10/10) Hydrocodone Bitart/Acetaminophen ([place] 5mg-325mg) 1 - 2 tablet PO Q4H PRN PRN PRN Reason: Pain Score 4-10/10 Last Admin: 07/20/19 17:47 Dose: 2 tablet Documented by: Al Hydroxide/Mg Hydroxide (Mylanta Ii) 15 - 30 ml PO Q4H PRN PRN PRN Reason: INDIGESTION Albuterol Sulfate (Ventolin Aerosols) 2.5 mg INHALATION Q2H PRN PRN PRN Reason: dyspnea, wheezing Albuterol/Ipratropium (Duoneb) 3 ml INHALATION Q6HWA.RT [facility] Last Admin: 07/21/19 07:39 Dose: 3 ml Documented by: Atorvastatin Calcium (Lipitor) 40 mg PO QHS [facility] Last Admin: 07/20/19 21:41 Dose: 40 mg Documented by: Diltiazem HCl (Cardizem Cd) 180 mg PO DAILY [facility] Last Admin: 07/21/19 08:37 Dose: 180 mg Documented by: Enoxaparin Sodium (Lovenox) 100 mg SC Q12@0600,1800 [facility] Famotidine (Pepcid) 20 mg PO BID [facility] Last Admin: 07/21/19 08:37 Dose: 20 mg Documented by: Gabapentin (Neurontin) 600 mg PO TID [facility] Last Admin: 07/21/19 05:25 Dose: 600 mg Documented by: Glucagon () 1 mg IM .X1 PRN PRN Reason: Hypoglycemia Guaifenesin (Robitussin) 20 ml PO Q4H PRN PRN PRN Reason: COUGH Hydralazine HCl (Apresoline Iv) 10 mg IV Q4H PRN PRN PRN Reason: SBP > 160 Dextrose (Dextrose 10%-Water) 250 mls @ 999 mls/hr IV .Q16M PRN; Protocol PRN Reason: HYPOGLYCEMIA Ampicillin Sodium/Sulbactam (Sodium 3 gm/ Sodium Chloride) 112 mls @ 150 mls/hr IV Q6 [facility] Last Infusion: 07/21/19 06:19 Dose: Infused Documented by: Insulin Glargine (Lantus ([facility])) 20 units SC BID [facility] Last Admin: 07/21/19 08:37 Dose: 20 units Documented by: Insulin Human Lispro (Humalog Kwikpen ([facility])) 5 unit SC TIDAC [facility] Last Admin: 07/21/19 08:36 Dose: 5 unit Documented by: Insulin Human Lispro (Humalog Kwikpen ([facility])) 0 unit SC ACHS [facility]; Protocol Last Admin: 07/21/19 08:37 Dose: 2 units Documented by: Lisinopril (Zestril) 20 mg PO DAILY [facility] Last Admin: 07/21/19 08:37 Dose: 20 mg Documented by: Magnesium Hydroxide (Milk Of Magnesia) 30 ml PO DAILY PRN PRN Reason: Constipation Morphine Sulfate () 1 - 2 mg IV Q4H PRN PRN PRN Reason: Pain Score 1-10/10 Last Admin: 07/19/19 07:39 Dose: 2 mg Documented by: Multivitamins (Multivitamin) 1 tablet PO DAILY@1200 [facility] Last Admin: 07/20/19 12:02 Dose: 1 tablet Documented by: Nicotine (Nicoderm Cq ([facility])) 21 mg TRANSDERM. DAILY PRN PRN Reason: Nicotine Craving Nitroglycerin (Nitrostat) 0.4 mg SUBLINGUAL Q5M PRN PRN Reason: CARDIAC/CHEST PAIN Ondansetron HCl (Zofran) 4 mg IV Q8H PRN PRN PRN Reason: NAUSEA/VOMITING Pantoprazole Sodium (Protonix) 40 mg PO DAILY [facility] Last Admin: 07/21/19 08:37 Dose: 40 mg Documented by: Potassium Chloride (K-Dur) 20 meq PO TIDCM [facility] Last Admin: 07/21/19 08:37 Dose: 20 meq Documented by: Psyllium Hydrophilic Mucilloid (Metamucil) 1 packet PO DAILY PRN PRN PRN Reason: Constipation Senna/Docusate Sodium (Senokot-S, Donna-Colace) 2 tablet PO BID PRN PRN PRN Reason: Constipation Sodium Chloride () 10 - 40 ml IV UD PRN PRN Reason: SALINE FLUSH Last Admin: 07/20/19 05:47 Dose: 10 ml Documented by: Sodium Hypochlorite (Dakins Solution 0.25% (1/2 Strength)) 1 applic TOPICAL BID [facility]; Protocol Last Admin: 07/21/19 00:43 Dose: 1 applicatio Documented by: Temazepam (Restoril) 15 mg PO QHS PRN PRN PRN Reason: INSOMNIA Last Admin: 07/20/19 21:42 Dose: 15 mg Documented by: Throat Lozenges (Cepacol Sore Throat Lozenge) 1 lozenge MUCOUS MEM Q2H PRN PRN PRN Reason: Sore throat or cough STROKE Vital Signs/Narrative: Vital Signs Temp Pulse Resp BP Pulse Ox 07/21/19 08:34 97.9 F 96 16 138/80 H 95 07/21/19 07:39 88 20 H 95 Medical Necessity - Tobacco Use Smoking Status: Current every day smoker Tobacco Use: Cigarettes Assessment/Plan All Active Problems Screen for colon cancer (Acute) Diabetic foot infection (Acute) Gangrene of toe (Acute) Diabetic ulcer of right foot (Acute) Osteomyelitis (Acute) PVD (peripheral vascular disease) (Acute) Type 2 diabetes mellitus with diabetic polyneuropathy (Acute) In brief, patient is a 68-year-old male with diabetes mellitus type 2 with poor control and complications including diabetic neuropathy presented with gangrene involving the right great toe. Antibiotics started per protocol consult placed to podiatry with plans for patient to undergo amputation of the infected toe 1. Gangrene involving the right big toe with early signs of osteomyelitis ~Patient underwent open amputation of the right hallux on 07/18/2019. Cultures sent results pending ?07/20/2019; patient cultures so far positive for Klebsiella, staph epi and strep agalactiae (B) patient antibiotic therapy adjusted by Dr. Llamas with ID patient is currently on Unasyn. ?Patient wound cultures reviewed polymicrobial. ID recommended continuation of Unasyn which patient is currently on. 2. Diabetes mellitus type 2 uncontrolled with A1c of 13.3 and complications including diabetic polyneuropathy ~ Placed on long acting insulin, Accu-Cheks a.c. and at bedtime and covered with sliding scale insulin 3. Dyslipidemia ~patient is on statin therapy, continued at home dose 4. Hypertension ~ blood pressure controlled, home medications continued with dose adjustment as needed 5. GERD ?Patient is on famotidine did continue 6. COPD ?Currently not in exacerbation did continue patient's home aerosol regimen 7. Peripheral vascular disease ?Patient was seen in consultation by Dr. Shah on 07/19/2019 on account of his peripheral vascular disease. Patient is known to have left SFA occlusion with previous bypass plans for patient to undergo angiogram regarding suspected occluded right SFA with patient being on Coumadin this was held switched to Lovenox with plans to resume after his angiogram which is scheduled either as inpatient or when patient is on the transitional care unit on 07/25/2019. 8 .History of previous DVTs ?Patient is on systemic anticoagulation with Coumadin. On admission was 2.6. Patient did receive FFP prior to his procedure. Coumadin started on 07/19/2019 with subsequent monitoring of ?With patient planned angiogram on 07/25/2019 Coumadin was held beginning 07/20/2019. Patient started on Lovenox which can easily be stopped prior to patient's anticipated procedure. ?07/21/2019. Case discussed with podiatry it may be prudent for patient to be kept in the hospital to have his angiogram prior to being discharged to a half-way facility given the logistics challenges involved with with bridging Code Visit Inpatient E&M: 53145 Subs Hosp L2
[2019-07-21] MEDS: HYDROcodone Bitartrate/Apap 5/325 Tablet PO ×2 (10:19→20:55)
--- NOTE | 2019-07-21 10:43 | PCM.PROGNOTE ---
Patient Problems: Active and Suspected Problems Diabetic foot infection (Acute) Gangrene of toe (Acute) Diabetic ulcer of right foot (Acute) Osteomyelitis (Acute) PVD (peripheral vascular disease) (Acute) Type 2 diabetes mellitus with diabetic polyneuropathy (Acute) Subjective: Patient was carefully examined and evaluated resting in bed this morning POD #3 s/p open right hallux amputation. He continues to relate his pain is controlled and he is resting comfortably in bed. He had no acute events over night again. No strike through to outer dressing again today. Patient denies any feelings of nausea, vomiting, fever, or chills. - Physical Exam Vitals/I&O's: Vital Signs Temp Pulse Resp BP Pulse Ox 97.9 F 96 16 138/80 H 95 07/21/19 08:34 07/21/19 08:34 07/21/19 08:34 07/21/19 08:34 07/21/19 08:34 Oxygen Delivery Method Room Air Weight: 97.8 kg Body Mass Index (BMI) 30.0 Finger Stick Blood Glucose 239 Intake and Output for Last 24 Hours 07/19/19 07/20/19 07/21/19 23:59 23:59 23:59 Intake Total 2544 / 2544 1538 / 1738 724 / 724 Output Total 4000 / 4000 1950 / 2650 1600 / 1600 Balance -1456 / -1456 -412 / -912 -876 / -876 General: Alert, Oriented x3, Cooperative, No apparent distress Extremities: No cyanosis, No Calf Tenderness - Negative Jarett breath sounds bilateral, Diminished Peripheral Pulses - DP and PT pulses not easily palpable bilateral Skin: - - Open right hallux amputation surgical site to right foot. Right first met head can be visualized and remains healthy in appearance. There continues to be no necrotic appearing tissue appreciated today. The remaining tissue in the surgical site appears healthy and granular in appearance. There is no malodor and no purulence appreciated today. Slight erythema to the distal area of the surgery. Musculoskeletal: Tenderness - Very minor tenderness with manipulation of surgical site Neurological: - - Epicritic sensation grossly absent to bilateral lower extremities consistent with patient's diabetic statu Psych/Mental Status: Normal Affect, Appropriate Microbiology Past 72 Hours 07/18/19 12:20 Bone - Right Foot Gram Stain - Final 07/18/19 12:20 Bone - Right Foot Wound Culture - Final No growth aerobically. 07/18/19 12:20 Bone - Right Foot Anaerobic Culture - Preliminary No growth in 48 hours. 07/18/19 12:20 Bone - Right Foot Gram Stain - Final 07/18/19 12:20 Bone - Right Foot Wound Culture - Final Klebsiella pneumoniae sp pneum Staphylococcus aureus Streptococcus agalactiae (B) Enterococcus faecalis Staphylococcus epidermidis 07/18/19 12:20 Bone - Right Foot Anaerobic Culture - Preliminary Checking for anaerobes, further studies to follow. 07/17/19 20:20 Wound - Toe Gram Stain - Final 07/17/19 20:20 Wound - Toe Wound Culture - Final Klebsiella pneumoniae sp pneum Staphylococcus epidermidis Streptococcus agalactiae (B) 07/17/19 20:20 Wound - Toe Anaerobic Culture - Preliminary Checking for anaerobes, further studies to follow. Laboratory Results 07/20/19 11:13: POC Glucose 283 H 07/20/19 16:47: POC Glucose 290 H 07/20/19 21:38: POC Glucose 305 H 07/21/19 06:02: WBC 7.4, RBC 3.80 L, Hgb 11.0 L, Hct 35.1 L, MCV 92.4, MCH 28.9, MCHC 31.3 L, RDW Std Deviation 44.1 H, RDW Coeff of Estrada 13.1, Plt Count 297, MPV 9.7, Immature Gran % (Auto) 0.300, Neut % (Auto) 64.4, Lymph % (Auto) 24.7, [place] % (Auto) 8.3, Eos % (Auto) 2.0, Baso % (Auto) 0.3, Absolute Neuts (auto) 4.7, Absolute Lymphs (auto) 1.82, Nucleated RBC % 0 07/21/19 06:02: PT 19.5 H, INR 1.7 07/21/19 06:02: Sodium 141, Potassium 3.7, Chloride 109 H, Carbon Dioxide 24.0, Anion Gap 8, BUN 11, Creatinine 0.65 L, Estim Creat Clear Calc 77.39, Est GFR (MDRD) Af Amer 157, Est GFR (MDRD) Non-Af 130, BUN/Creatinine Ratio 16.8, Glucose 215 H, Calcium 8.2 L 07/21/19 08:31: POC Glucose 203 H Current Medications Acetaminophen (Tylenol) 650 mg PO Q6H PRN PRN PRN Reason: Non-cardiac pain (4-10/10) Hydrocodone Bitart/Acetaminophen ([place] 5mg-325mg) 1 - 2 tablet PO Q4H PRN PRN PRN Reason: Pain Score 4-10/10 Last Admin: 07/21/19 10:19 Dose: 2 tablet Documented by: Al Hydroxide/Mg Hydroxide (Mylanta Ii) 15 - 30 ml PO Q4H PRN PRN PRN Reason: INDIGESTION Albuterol Sulfate (Ventolin Aerosols) 2.5 mg INHALATION Q2H PRN PRN PRN Reason: dyspnea, wheezing Albuterol/Ipratropium (Duoneb) 3 ml INHALATION Q6HWA.RT [facility] Last Admin: 07/21/19 07:39 Dose: 3 ml Documented by: Atorvastatin Calcium (Lipitor) 40 mg PO QHS [facility] Last Admin: 07/20/19 21:41 Dose: 40 mg Documented by: Diltiazem HCl (Cardizem Cd) 180 mg PO DAILY [facility] Last Admin: 07/21/19 08:37 Dose: 180 mg Documented by: Enoxaparin Sodium (Lovenox) 100 mg SC Q12@0600,1800 [facility] Famotidine (Pepcid) 20 mg PO BID [facility] Last Admin: 07/21/19 08:37 Dose: 20 mg Documented by: Gabapentin (Neurontin) 600 mg PO TID [facility] Last Admin: 07/21/19 05:25 Dose: 600 mg Documented by: Glucagon () 1 mg IM .X1 PRN PRN Reason: Hypoglycemia Guaifenesin (Robitussin) 20 ml PO Q4H PRN PRN PRN Reason: COUGH Hydralazine HCl (Apresoline Iv) 10 mg IV Q4H PRN PRN PRN Reason: SBP > 160 Dextrose (Dextrose 10%-Water) 250 mls @ 999 mls/hr IV .Q16M PRN; Protocol PRN Reason: HYPOGLYCEMIA Ampicillin Sodium/Sulbactam (Sodium 3 gm/ Sodium Chloride) 112 mls @ 150 mls/hr IV Q6 [facility] Last Infusion: 07/21/19 06:19 Dose: Infused Documented by: Insulin Glargine (Lantus (Bkc)) 20 units SC BID [facility] Last Admin: 01/04/20 08:37 Dose: 20 units Documented by: Insulin Human Lispro (Humalog Kwikpen (Bkc)) 5 unit SC TIDAC [facility] Last Admin: 07/21/19 08:36 Dose: 5 unit Documented by: Insulin Human Lispro (Humalog Kwikpen (Bkc)) 0 unit SC ACHS [facility]; Protocol Last Admin: 07/21/19 08:37 Dose: 2 units Documented by: Lisinopril (Zestril) 20 mg PO DAILY [facility] Last Admin: 07/21/19 08:37 Dose: 20 mg Documented by: Magnesium Hydroxide (Milk Of Magnesia) 30 ml PO DAILY PRN PRN Reason: Constipation Morphine Sulfate () 1 - 2 mg IV Q4H PRN PRN PRN Reason: Pain Score 1-10/10 Last Admin: 07/19/19 07:39 Dose: 2 mg Documented by: Multivitamins (Multivitamin) 1 tablet PO DAILY@1200 [facility] Last Admin: 07/20/19 12:02 Dose: 1 tablet Documented by: Nicotine (Nicoderm Cq (Pbkc)) 21 mg TRANSDERM. DAILY PRN PRN Reason: Nicotine Craving Nitroglycerin (Nitrostat) 0.4 mg SUBLINGUAL Q5M PRN PRN Reason: CARDIAC/CHEST PAIN Ondansetron HCl (Zofran) 4 mg IV Q8H PRN PRN PRN Reason: NAUSEA/VOMITING Pantoprazole Sodium (Protonix) 40 mg PO DAILY [facility] Last Admin: 07/21/19 08:37 Dose: 40 mg Documented by: Potassium Chloride (K-Dur) 20 meq PO TIDCM [facility] Last Admin: 07/21/19 08:37 Dose: 20 meq Documented by: Psyllium Hydrophilic Mucilloid (Metamucil) 1 packet PO DAILY PRN PRN PRN Reason: Constipation Senna/Docusate Sodium (Senokot-S, Donna-Colace) 2 tablet PO BID PRN PRN PRN Reason: Constipation Sodium Chloride () 10 - 40 ml IV UD PRN PRN Reason: SALINE FLUSH Last Admin: 07/20/19 05:47 Dose: 10 ml Documented by: Sodium Hypochlorite (Dakins Solution 0.25% (1/2 Strength)) 1 applic TOPICAL BID [facility]; Protocol Last Admin: 07/21/19 00:43 Dose: 1 applicatio Documented by: Temazepam (Restoril) 15 mg PO QHS PRN PRN PRN Reason: INSOMNIA Last Admin: 07/20/19 21:42 Dose: 15 mg Documented by: Throat Lozenges (Cepacol Sore Throat Lozenge) 1 lozenge MUCOUS MEM Q2H PRN PRN PRN Reason: Sore throat or cough Medical Necessity - Tobacco Use Smoking Status: Current every day smoker Tobacco Use: Cigarettes Assessment/Plan All Active Problems Screen for colon cancer (Acute) Diabetic foot infection (Acute) Gangrene of toe (Acute) Diabetic ulcer of right foot (Acute) Osteomyelitis (Acute) PVD (peripheral vascular disease) (Acute) Type 2 diabetes mellitus with diabetic polyneuropathy (Acute) POD #3 s/p right open hallux amputation DM II with neuropathy PVD Cellulitis - resolving Other comorbidities This patient was carefully examined and evaluated resting comfortably again this afternoon POD #3 s/p right open hallux amputation. Patient had no acute events overnight. No strikethrough appreciated outer dressing. WBC is 7.4 today. Patient is afebrile. Micro results from surgery are showing Klebsiella pneumoniae, staph aureus, strep group B, strep group D, Staphylococcus species. Patient currently on IV antibiotics per infectious disease. Surgical dressing was taken down at bedside again today and site was evaluated. There continues to be no evidence of any necrotic tissue and no evidence of any purulence or malodor. The site was carefully flushed with copious amounts of normal sterile saline. Next the surgical site was then packed with 2x2s wet with dakins solution half strength, followed by 4 x 4's, ABDs, Kerlix, and a lightly wrapped Donte bandage to hold the dressing in place but no compression was used with the Donte. Patient is to keep right lower extremity elevated to help with edema and pain control. Patient's dressing can be reinforced as noted above by nursing staff if necessary. Patient is to continue to be nonweightbearing to the right foot. If he needs to pivot or transfer very short distance he is to do this with heel weightbearing to the right side. Dr. Shah with vascular surgery plans an intervention for Tuesday the . Patient understands and is aware that further surgical procedures could be possible in the future. Continued medical management and DVT prophylaxis appreciated per primary team. Podiatry will continue to follow this patient.
[2019-07-21] MEDS: Multivitamins,Therapeutic Tablet 1 TABLET PO (11:36)
[2019-07-21 12:05] LABS: Bedside Glucose 293 mg/dL (70-110)
[2019-07-21 17:16] LABS: Bedside Glucose 298 mg/dL (70-110)
[2019-07-21] MEDS: Enoxaparin 100 MG/ML Syringe SC (17:37)
[2019-07-21] MEDS: Atorvastatin Calcium 40 MG Tablet PO (20:54)
[2019-07-21] MEDS: Temazepam 15 MG Capsule PO (20:54)
[2019-07-21 22:10] LABS: Bedside Glucose 383 mg/dL (70-110)
[2019-07-22 03:00] VITALS: BP 124/68; PULSE 76; RESP 18; TEMP 36.6; O2SAT 97
[2019-07-22] MEDS: Enoxaparin 100 MG/ML Syringe SC ×2 (05:03→17:37)
[2019-07-22] MEDS: Gabapentin 600 MG Tablet PO ×3 (05:06→20:10)
[2019-07-22 05:56] LABS: Absolute Lymphocyte Count 2.03 X10^3/uL (0.83-4.51); Absolute Neutrophil Count 3.6 X10^3/uL (2.0-7.7); Basophil# 0.05 X10^3/uL; Basophil% 0.8 % (0-1); Eosinophil# 0.16 X10^3/uL; Eosinophils% 2.5 % (0-5); Hematocrit 36.2 % (40-54); Hemoglobin 11.5 g/dL (13.0-16.5); Lymphocyte # 2.03 X10^3/ul (4.0); Lymphocyte % 31.5 % (19-41); Mean Corp Hgb Conc 31.8 g/dL (32-36); Mean Corpuscular Hgb 29.5 pg (27.0-32.0); Mean Corpuscular Volume 92.8 fL (80-94); Mean Platelet Vol. 9.6 fl (6.2-12.0); Monocyte# 0.54 X10^3/uL; Monocyte% 8.4 % (0-10); NRBC Flagged by Analyzer 0 % (0-5); Neutrophil # 3.64 X10^3/uL (2.7-7.7); Neutrophil % 56.5 % (47-70); Platelet Count 285 K/mm3 (150-450); RBC Distribution Width CV 13.2 % (11.6-14.6); RBC Distribution Width SD 44.6 fl (35.1-43.9); White Blood Count 6.4 K/mm3 (4.4-11.0)
[2019-07-22 06:03] LABS: International Normalized Ratio 1.8; Prothrombin Time (Protime)PT. 20.6 SECONDS (11.7-14.9)
[2019-07-22 06:46] LABS: Anion Gap 5 (5-15); BUN 12 mg/dL (7-18); BUN/Creat Ratio 18.4 RATIO (10-20); Calcium,Total 8.4 mg/dL (8.5-10.1); Chloride 108 mmol/L (98-107); Creatinine, Serum 0.65 mg/dL (0.70-1.30); EST Glomerular Filtration Rate 130 mL/min (>60); Est Glom Filt Rate - Afr Amer 158 mL/min (>60); Estimated Creatinine Clearance 77.39 ml/min; Glucose 227 mg/dL (74-106); Potassium 4.2 mmol/L (3.5-5.1); Sodium Level 139 mmol/L (136-145)
[2019-07-22 07:10] VITALS: PULSE 89; RESP 20
[2019-07-22] MEDS: Ipratropium/Albuterol Sulfate 3 ML AMPUL.NEB INHALATION ×2 (07:10→19:50)
--- NOTE | 2019-07-22 07:21 | PCM.PN.HOSP ---
Patient Problems: Active and Suspected Problems Diabetic foot infection (Acute) Gangrene of toe (Acute) Diabetic ulcer of right foot (Acute) Osteomyelitis (Acute) PVD (peripheral vascular disease) (Acute) Type 2 diabetes mellitus with diabetic polyneuropathy (Acute) Reason for Visit: Follow-up right hallux amputation Subjective: Patient has a planned outpatient angiogram on 07/25/2018. 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 Given the challenges involved in the logistics of sending patient home and bringing him back and bridging decision was made to keep patient for him to undergo his angiogram prior to patient being discharged to [facility] facility. Objective: GENERAL: cooperative HEENT: Atraumatic; EYES; Anicteric, NECK; supple, normal thyroid, RESPIRATORY: Diminished to auscultation CARDIOVASCULAR: Regular S1 S2, GI: soft, normoactive bowel sounds, : No Renal angle tenderness; EXTREMITIES: Right foot in surgical dressing MUSCULOSKELETAL: no muscle waisting NEURO: Awake; no lateralizing signs. SKIN: No Rash PSYCH; Flat affect Vitals/I&O's: Vital Signs Temp Pulse Resp BP Pulse Ox 97.9 F 76 18 124/68 H 97 07/22/19 03:00 07/22/19 03:00 07/22/19 03:00 07/22/19 03:00 07/22/19 03:00 Oxygen Delivery Method Room Air Weight: 97.8 kg Body Mass Index (BMI) 30.0 Finger Stick Blood Glucose 239 Intake and Output for Last 24 Hours 07/20/19 07/21/19 07/22/19 23:59 23:59 23:59 Intake Total 1538 / 1738 2278 / 2278 224 / 224 Output Total 1950 / 2650 2850 / 2850 1025 / 1025 Balance -412 / -912 -572 / -572 -801 / -801 Microbiology Past 72 Hours 07/18/19 12:20 Bone - Right Foot Gram Stain - Final 07/18/19 12:20 Bone - Right Foot Wound Culture - Final No growth aerobically. 07/18/19 12:20 Bone - Right Foot Anaerobic Culture - Preliminary No growth in 48 hours. 07/18/19 12:20 Bone - Right Foot Gram Stain - Final 07/18/19 12:20 Bone - Right Foot Wound Culture - Final Klebsiella pneumoniae sp pneum Staphylococcus aureus Streptococcus agalactiae (B) Enterococcus faecalis Staphylococcus epidermidis 07/18/19 12:20 Bone - Right Foot Anaerobic Culture - Preliminary Checking for anaerobes, further studies to follow. 07/17/19 20:20 Wound - Toe Gram Stain - Final 07/17/19 20:20 Wound - Toe Wound Culture - Final Klebsiella pneumoniae sp pneum Staphylococcus epidermidis Streptococcus agalactiae (B) 07/17/19 20:20 Wound - Toe Anaerobic Culture - Preliminary Checking for anaerobes, further studies to follow. Laboratory Results 07/21/19 06:02: Sodium 141, Potassium 3.7, Chloride 109 H, Carbon Dioxide 24.0, Anion Gap 8, BUN 11, Creatinine 0.65 L, Estim Creat Clear Calc 77.39, Est GFR (MDRD) Af Amer 157, Est GFR (MDRD) Non-Af 130, BUN/Creatinine Ratio 16.8, Glucose 215 H, Calcium 8.2 L 07/21/19 08:31: POC Glucose 203 H 07/21/19 11:39: POC Glucose 293 H 07/21/19 17:08: POC Glucose 298 H 07/21/19 20:52: POC Glucose 383 H 07/22/19 05:15: WBC 6.4, RBC 3.90 L, Hgb 11.5 L, Hct 36.2 L, MCV 92.8, MCH 29.5, MCHC 31.8 L, RDW Std Deviation 44.6 H, RDW Coeff of Estrada 13.2, Plt Count 285, MPV 9.6, Immature Gran % (Auto) 0.300, Neut % (Auto) 56.5, Lymph % (Auto) 31.5, [place] % (Auto) 8.4, Eos % (Auto) 2.5, Baso % (Auto) 0.8, Absolute Neuts (auto) 3.6, Absolute Lymphs (auto) 2.03, Nucleated RBC % 0 07/22/19 05:15: PT 20.6 H, INR 1.8 07/22/19 05:15: Sodium 139, Potassium 4.2, Chloride 108 H, Carbon Dioxide 26.0, Anion Gap 5, BUN 12, Creatinine 0.65 L, Estim Creat Clear Calc 77.39, Est GFR (MDRD) Af Amer 158, Est GFR (MDRD) Non-Af 130, BUN/Creatinine Ratio 18.4, Glucose 227 H, Calcium 8.4 L Current Medications Acetaminophen (Tylenol) 650 mg PO Q6H PRN PRN PRN Reason: Non-cardiac pain (4-10/10) Hydrocodone Bitart/Acetaminophen ([place] 5mg-325mg) 1 - 2 tablet PO Q4H PRN PRN PRN Reason: Pain Score 4-10/10 Last Admin: 07/21/19 20:55 Dose: 2 tablet Documented by: Al Hydroxide/Mg Hydroxide (Mylanta Ii) 15 - 30 ml PO Q4H PRN PRN PRN Reason: INDIGESTION Albuterol Sulfate (Ventolin Aerosols) 2.5 mg INHALATION Q2H PRN PRN PRN Reason: dyspnea, wheezing Albuterol/Ipratropium (Duoneb) 3 ml INHALATION Q6HWA.RT [facility] Last Admin: 07/21/19 19:41 Dose: 3 ml Documented by: Atorvastatin Calcium (Lipitor) 40 mg PO QHS [facility] Last Admin: 07/21/19 20:54 Dose: 40 mg Documented by: Diltiazem HCl (Cardizem Cd) 180 mg PO DAILY [facility] Last Admin: 07/21/19 08:37 Dose: 180 mg Documented by: Enoxaparin Sodium (Lovenox) 100 mg SC Q12@0600,1800 [facility] Last Admin: 07/22/19 05:03 Dose: 100 mg Documented by: Famotidine (Pepcid) 20 mg PO BID [facility] Last Admin: 07/21/19 20:54 Dose: 20 mg Documented by: Gabapentin (Neurontin) 600 mg PO TID [facility] Last Admin: 07/22/19 05:06 Dose: 600 mg Documented by: Glucagon () 1 mg IM .X1 PRN PRN Reason: Hypoglycemia Guaifenesin (Robitussin) 20 ml PO Q4H PRN PRN PRN Reason: COUGH Hydralazine HCl (Apresoline Iv) 10 mg IV Q4H PRN PRN PRN Reason: SBP > 160 Dextrose (Dextrose 10%-Water) 250 mls @ 999 mls/hr IV .Q16M PRN; Protocol PRN Reason: HYPOGLYCEMIA Ampicillin Sodium/Sulbactam (Sodium 3 gm/ Sodium Chloride) 112 mls @ 150 mls/hr IV Q6 [facility] Last Infusion: 07/22/19 06:05 Dose: Infused Documented by: Insulin Glargine (Lantus (Bk)) 20 units SC BID [facility] Last Admin: 07/21/19 20:56 Dose: 20 units Documented by: Insulin Human Lispro (Humalog Kwikpen ([facility])) 5 unit SC TIDAC [facility] Last Admin: 07/21/19 17:35 Dose: 5 unit Documented by: Insulin Human Lispro (Humalog Kwikpen (Bk)) 0 unit SC ACHS [facility]; Protocol Last Admin: 07/21/19 20:55 Dose: 6 units Documented by: Lisinopril (Zestril) 20 mg PO DAILY [facility] Last Admin: 07/21/19 08:37 Dose: 20 mg Documented by: Magnesium Hydroxide (Milk Of Magnesia) 30 ml PO DAILY PRN PRN Reason: Constipation Morphine Sulfate () 1 - 2 mg IV Q4H PRN PRN PRN Reason: Pain Score 1-10/10 Last Admin: 07/19/19 07:39 Dose: 2 mg Documented by: Multivitamins (Multivitamin) 1 tablet PO DAILY@1200 [facility] Last Admin: 07/21/19 11:36 Dose: 1 tablet Documented by: Nicotine (Nicoderm Cq (Pbkc)) 21 mg TRANSDERM. DAILY PRN PRN Reason: Nicotine Craving Nitroglycerin (Nitrostat) 0.4 mg SUBLINGUAL Q5M PRN PRN Reason: CARDIAC/CHEST PAIN Ondansetron HCl (Zofran) 4 mg IV Q8H PRN PRN PRN Reason: NAUSEA/VOMITING Pantoprazole Sodium (Protonix) 40 mg PO DAILY [facility] Last Admin: 07/21/19 08:37 Dose: 40 mg Documented by: Potassium Chloride (K-Dur) 20 meq PO TIDCM [facility] Last Admin: 07/21/19 17:37 Dose: 20 meq Documented by: Psyllium Hydrophilic Mucilloid (Metamucil) 1 packet PO DAILY PRN PRN PRN Reason: Constipation Senna/Docusate Sodium (Senokot-S, Donna-Colace) 2 tablet PO BID PRN PRN PRN Reason: Constipation Sodium Chloride () 10 - 40 ml IV UD PRN PRN Reason: SALINE FLUSH Last Admin: 07/20/19 05:47 Dose: 10 ml Documented by: Sodium Hypochlorite (Dakins Solution 0.25% (1/2 Strength)) 1 applic TOPICAL BID [facility]; Protocol Last Admin: 07/22/19 02:53 Dose: Not Given Documented by: Temazepam (Restoril) 15 mg PO QHS PRN PRN PRN Reason: INSOMNIA Last Admin: 07/21/19 20:54 Dose: 15 mg Documented by: Throat Lozenges (Cepacol Sore Throat Lozenge) 1 lozenge MUCOUS MEM Q2H PRN PRN PRN Reason: Sore throat or cough Medical Necessity - Tobacco Use Smoking Status: Current every day smoker Tobacco Use: Cigarettes Assessment/Plan All Active Problems Screen for colon cancer (Acute) Diabetic foot infection (Acute) Gangrene of toe (Acute) Diabetic ulcer of right foot (Acute) Osteomyelitis (Acute) PVD (peripheral vascular disease) (Acute) Type 2 diabetes mellitus with diabetic polyneuropathy (Acute) In brief, patient is a 68-year-old male with diabetes mellitus type 2 with poor control and complications including diabetic neuropathy presented with gangrene involving the right great toe. Antibiotics started per protocol consult placed to podiatry with plans for patient to undergo amputation of the infected toe 1. Gangrene involving the right big toe with early signs of osteomyelitis ~Patient underwent open amputation of the right hallux on 07/18/2019. Cultures sent results pending ?07/20/2019; patient cultures so far positive for Klebsiella, staph epi and strep agalactiae (B) patient antibiotic therapy adjusted by Dr. Llamas with ID patient is currently on Unasyn. ~ 07/21/2019; Patient wound cultures reviewed polymicrobial. ID recommended continuation of Unasyn which patient is currently on. 2. Diabetes mellitus type 2 uncontrolled with A1c of 13.3 and complications including diabetic polyneuropathy ~ Placed on long acting insulin, Accu-Cheks a.c. and at bedtime and covered with sliding scale insulin 3. Dyslipidemia ~patient is on statin therapy, continued at home dose 4. Hypertension ~ blood pressure controlled, home medications continued with dose adjustment as needed 5. GERD ?Patient is on famotidine did continue 6. COPD ?Currently not in exacerbation did continue patient's home aerosol regimen 7. Peripheral vascular disease ?Patient was seen in consultation by Dr. Shah on 07/19/2019 on account of his peripheral vascular disease. Patient is known to have left SFA occlusion with previous bypass plans for patient to undergo angiogram regarding suspected occluded right SFA with patient being on Coumadin this was held switched to Lovenox with plans to resume after his angiogram which is scheduled either as inpatient or when patient is on the transitional care unit on 07/25/2019. ~ ?07/21/2019. Case discussed with podiatry it may be prudent for patient to be kept in the hospital to have his angiogram prior to being discharged to a [facility] facility given the logistics challenges involved with with bridging 8 .History of previous DVTs ?Patient is on systemic anticoagulation with Coumadin. On admission was 2.6. Patient did receive FFP prior to his procedure. Coumadin started on 07/19/2019 with subsequent monitoring of ?With patient planned angiogram on 07/25/2019 Coumadin was held beginning 07/20/2019. Patient started on Lovenox which can easily be stopped prior to patient's anticipated procedure. Code Visit Inpatient E&M: 10052 Subs Hosp L2
[2019-07-22] MEDS: Insulin Lispro 100 UNIT/ML INSULN.PEN SC ×7 (08:42→21:02)
[2019-07-22 08:50] LABS: Bedside Glucose 197 mg/dL (70-110)
[2019-07-22 10:23] VITALS: BP 141/63; PULSE 91; RESP 18; TEMP 36.6; O2SAT 98
[2019-07-22] MEDS: HYDROcodone Bitartrate/Apap 5/325 Tablet PO ×2 (10:25→20:07)
[2019-07-22] MEDS: Lisinopril 20 MG Tablet PO (10:25)
[2019-07-22] MEDS: Pantoprazole Sodium 40 MG Tablet PO (10:25)
[2019-07-22] MEDS: Famotidine 20 MG Tablet PO ×2 (10:25→20:07)
[2019-07-22] MEDS: dilTIAZem CD 180 MG Capsule PO (10:26)
[2019-07-22] MEDS: DAKIN'S SOL HALF STRENGTH (=0.25%) 1 APPLIC TOPICAL ×2 (11:02→20:05)
--- NOTE | 2019-07-22 11:08 | PN_ITS ---
Patient Problems: Active and Suspected Problems Diabetic foot infection (Acute) Gangrene of toe (Acute) Diabetic ulcer of right foot (Acute) Osteomyelitis (Acute) PVD (peripheral vascular disease) (Acute) Type 2 diabetes mellitus with diabetic polyneuropathy (Acute) Subjective: Patient was carefully examined and evaluated resting in bed this morning POD #4 s/p open right hallux amputation. He continues to relate his pain is controlled and he is resting comfortably in bed. He had no acute events over night again. Patient denies any feelings of nausea, vomiting, fever, or chills. - Physical Exam Vitals/I&O's: Vital Signs Temp Pulse Resp BP Pulse Ox 97.9 F 91 18 141/63 H 98 07/22/19 10:23 07/22/19 10:23 07/22/19 10:23 07/22/19 10:23 07/22/19 10:23 Oxygen Delivery Method Room Air Weight: 97.8 kg Body Mass Index (BMI) 30.0 Finger Stick Blood Glucose 239 Intake and Output for Last 24 Hours 07/20/19 07/21/19 07/22/19 23:59 23:59 23:59 Intake Total 1538 / 1738 2278 / 2278 224 / 224 Output Total 1950 / 2650 2850 / 2850 1925 / 1925 Balance -412 / -912 -572 / -572 -1701 / -1701 General: Alert, Oriented x3, Cooperative, No apparent distress Extremities: No cyanosis, No Calf Tenderness - Negative Jarett and Warren signs bilateral, Diminished Peripheral Pulses Skin: - - Open right hallux amputation surgical site to right foot. Right first met head can be visualized and remains healthy in appearance. There continues to be no necrotic appearing tissue appreciated today. The remaining tissue in the surgical site appears healthy and granular in appearance. There is no malodor and no purulence appreciated today. Musculoskeletal: Tenderness - Very minor tenderness with manipulation of surgical site Neurological: - - Epicritic sensation grossly absent to bilateral lower extremities consistent with patient's diabetic status Psych/Mental Status: Normal Affect, Appropriate Microbiology Past 72 Hours 07/18/19 12:20 Bone - Right Foot Gram Stain - Final 07/18/19 12:20 Bone - Right Foot Wound Culture - Final No growth aerobically. 07/18/19 12:20 Bone - Right Foot Anaerobic Culture - Preliminary No growth in 48 hours. 07/18/19 12:20 Bone - Right Foot Gram Stain - Final 07/18/19 12:20 Bone - Right Foot Wound Culture - Final Klebsiella pneumoniae sp pneum Staphylococcus aureus Streptococcus agalactiae (B) Enterococcus faecalis Staphylococcus epidermidis 07/18/19 12:20 Bone - Right Foot Anaerobic Culture - Preliminary Checking for anaerobes, further studies to follow. 07/17/19 20:20 Wound - Toe Gram Stain - Final 07/17/19 20:20 Wound - Toe Wound Culture - Final Klebsiella pneumoniae sp pneum Staphylococcus epidermidis Streptococcus agalactiae (B) 07/17/19 20:20 Wound - Toe Anaerobic Culture - Preliminary Checking for anaerobes, further studies to follow. Laboratory Results 07/21/19 11:39: POC Glucose 293 H 07/21/19 17:08: POC Glucose 298 H 07/21/19 20:52: POC Glucose 383 H 07/22/19 05:15: WBC 6.4, RBC 3.90 L, Hgb 11.5 L, Hct 36.2 L, MCV 92.8, MCH 29.5, MCHC 31.8 L, RDW Std Deviation 44.6 H, RDW Coeff of Estrada 13.2, Plt Count 285, MPV 9.6, Immature Gran % (Auto) 0.300, Neut % (Auto) 56.5, Lymph % (Auto) 31.5, [place] % (Auto) 8.4, Eos % (Auto) 2.5, Baso % (Auto) 0.8, Absolute Neuts (auto) 3.6, Absolute Lymphs (auto) 2.03, Nucleated RBC % 0 07/22/19 05:15: PT 20.6 H, INR 1.8 07/22/19 05:15: Sodium 139, Potassium 4.2, Chloride 108 H, Carbon Dioxide 26.0, Anion Gap 5, BUN 12, Creatinine 0.65 L, Estim Creat Clear Calc 77.39, Est GFR (MDRD) Af Amer 158, Est GFR (MDRD) Non-Af 130, BUN/Creatinine Ratio 18.4, Glucose 227 H, Calcium 8.4 L 07/22/19 08:38: POC Glucose 197 H Current Medications Acetaminophen (Tylenol) 650 mg PO Q6H PRN PRN PRN Reason: Non-cardiac pain (-10/10) Hydrocodone Bitart/Acetaminophen ([place] 5mg-325mg) 1 - 2 tablet PO Q4H PRN PRN PRN Reason: Pain Score 4-10/10 Last Admin: 07/22/19 10:25 Dose: 2 tablet Documented by: Al Hydroxide/Mg Hydroxide (Mylanta Ii) 15 - 30 ml PO Q4H PRN PRN PRN Reason: INDIGESTION Albuterol Sulfate (Ventolin Aerosols) 2.5 mg INHALATION Q2H PRN PRN PRN Reason: dyspnea, wheezing Albuterol/Ipratropium (Duoneb) 3 ml INHALATION Q6HWA.RT [facility] Last Admin: 07/22/19 07:10 Dose: 3 ml Documented by: Atorvastatin Calcium (Lipitor) 40 mg PO QHS [facility] Last Admin: 07/21/19 20:54 Dose: 40 mg Documented by: Diltiazem HCl (Cardizem Cd) 180 mg PO DAILY [facility] Last Admin: 07/22/19 10:26 Dose: 180 mg Documented by: Enoxaparin Sodium (Lovenox) 100 mg SC Q12@0600,1800 [facility] Last Admin: 07/22/19 05:03 Dose: 100 mg Documented by: Famotidine (Pepcid) 20 mg PO BID [facility] Last Admin: 07/22/19 10:25 Dose: 20 mg Documented by: Gabapentin (Neurontin) 600 mg PO TID [facility] Last Admin: 07/22/19 05:06 Dose: 600 mg Documented by: Glucagon () 1 mg IM .X1 PRN PRN Reason: Hypoglycemia Guaifenesin (Robitussin) 20 ml PO Q4H PRN PRN PRN Reason: COUGH Hydralazine HCl (Apresoline Iv) 10 mg IV Q4H PRN PRN PRN Reason: SBP > 160 Dextrose (Dextrose 10%-Water) 250 mls @ 999 mls/hr IV .Q16M PRN; Protocol PRN Reason: HYPOGLYCEMIA Ampicillin Sodium/Sulbactam (Sodium 3 gm/ Sodium Chloride) 112 mls @ 150 mls/hr IV Q6 [facility] Last Infusion: 07/22/19 06:05 Dose: Infused Documented by: Insulin Glargine (Lantus (Bkc)) 30 units SC BID [facility] Last Admin: 07/22/19 10:26 Dose: 30 units Documented by: Insulin Human Lispro (Humalog Kwikpen (Bkc)) 5 unit SC TIDAC [facility] Last Admin: 07/22/19 08:42 Dose: 5 unit Documented by: Insulin Human Lispro (Humalog Kwikpen (Bkc)) 0 unit SC ACHS [facility]; Protocol Last Admin: 07/22/19 08:43 Dose: 2 units Documented by: Lisinopril (Zestril) 20 mg PO DAILY [facility] Last Admin: 07/22/19 10:25 Dose: 20 mg Documented by: Magnesium Hydroxide (Milk Of Magnesia) 30 ml PO DAILY PRN PRN Reason: Constipation Morphine Sulfate () 1 - 2 mg IV Q4H PRN PRN PRN Reason: Pain Score 1-10/10 Last Admin: 07/19/19 07:39 Dose: 2 mg Documented by: Multivitamins (Multivitamin) 1 tablet PO DAILY@1200 [facility] Last Admin: 07/21/19 11:36 Dose: 1 tablet Documented by: Nicotine (Nicoderm Cq (Pbkc)) 21 mg TRANSDERM. DAILY PRN PRN Reason: Nicotine Craving Nitroglycerin (Nitrostat) 0.4 mg SUBLINGUAL Q5M PRN PRN Reason: CARDIAC/CHEST PAIN Ondansetron HCl (Zofran) 4 mg IV Q8H PRN PRN PRN Reason: NAUSEA/VOMITING Pantoprazole Sodium (Protonix) 40 mg PO DAILY [facility] Last Admin: 07/22/19 10:25 Dose: 40 mg Documented by: Potassium Chloride (K-Dur) 20 meq PO TIDCM [facility] Last Admin: 07/22/19 10:25 Dose: 20 meq Documented by: Psyllium Hydrophilic Mucilloid (Metamucil) 1 packet PO DAILY PRN PRN PRN Reason: Constipation Senna/Docusate Sodium (Senokot-S, Donna-Colace) 2 tablet PO BID PRN PRN PRN Reason: Constipation Sodium Chloride () 10 - 40 ml IV UD PRN PRN Reason: SALINE FLUSH Last Admin: 07/20/19 05:47 Dose: 10 ml Documented by: Sodium Hypochlorite (Dakins Solution 0.25% (1/2 Strength)) 1 applic TOPICAL BID [facility]; Protocol Last Admin: 07/22/19 11:02 Dose: 1 applicatio Documented by: Temazepam (Restoril) 15 mg PO QHS PRN PRN PRN Reason: INSOMNIA Last Admin: 07/21/19 20:54 Dose: 15 mg Documented by: Throat Lozenges (Cepacol Sore Throat Lozenge) 1 lozenge MUCOUS MEM Q2H PRN PRN PRN Reason: Sore throat or cough Medical Necessity - Tobacco Use Smoking Status: Current every day smoker Tobacco Use: Cigarettes Assessment/Plan All Active Problems Screen for colon cancer (Acute) Diabetic foot infection (Acute) Gangrene of toe (Acute) Diabetic ulcer of right foot (Acute) Osteomyelitis (Acute) PVD (peripheral vascular disease) (Acute) Type 2 diabetes mellitus with diabetic polyneuropathy (Acute) POD #4 s/p right open hallux amputation DM II with neuropathy PVD Cellulitis - resolving Other comorbidities This patient was carefully examined and evaluated resting comfortably again this afternoon POD #4 s/p right open hallux amputation. Patient continues to feel well. No strikethrough appreciated outer dressing again today. WBC is 6.4 today. Patient is afebrile. Micro results from surgery are showing Klebsiella pneumoniae, staph aureus, strep group B, strep group D, Staphylococcus species. Patient currently on IV antibiotics per infectious disease. Surgical dressing was taken down at bedside again today and site was again evaluated. There continues to be no evidence of any necrotic tissue and no evidence of any purulence or malodor. The site was carefully flushed with copious amounts of normal sterile saline. Next the surgical site was then packed with 2x2s wet with dakins solution half strength, followed by 4 x 4's, ABDs, Kerlix, and a lightly wrapped Donte bandage to hold the dressing in place but no compression was used with the Donte. Patient is to keep right lower extremity elevated to help with edema and pain control. Patient's dressing can be reinforced as noted above by nursing staff if necessary. Patient is to continue to be nonweightbe aring to the right foot. If he needs to pivot or transfer very short distance he is to do this with heel weightbearing to the right side. Dr. Shah with vascular surgery planning for an intervention for Tuesday the . Patient understands and is aware that further surgical procedures could be possible in the future. Continued medical management and DVT prophylaxis appreciated per primary team. Podiatry will continue to follow this patient.
[2019-07-22] MEDS: Multivitamins,Therapeutic Tablet 1 TABLET PO (12:12)
[2019-07-22 12:21] LABS: Bedside Glucose 317 mg/dL (70-110)
[2019-07-22 16:04] VITALS: BP 119/84; PULSE 82; RESP 18; TEMP 36.7; O2SAT 98
[2019-07-22 16:16] LABS: Bedside Glucose 255 mg/dL (70-110)
[2019-07-22 19:50] VITALS: PULSE 81; RESP 18
[2019-07-22] MEDS: Mag Hydrox/Al Hydrox/Simeth 30 ML UDC PO (20:06)
[2019-07-22] MEDS: Temazepam 15 MG Capsule PO (20:07)
[2019-07-22] MEDS: Atorvastatin Calcium 40 MG Tablet PO (20:10)
[2019-07-22 21:35] LABS: Bedside Glucose 283 mg/dL (70-110)
[2019-07-22 22:00] VITALS: BP 155/69; PULSE 81; RESP 16; TEMP 36.8; O2SAT 96
[2019-07-23 04:00] VITALS: BP 132/75; PULSE 87; RESP 16; TEMP 36.7; O2SAT 100
[2019-07-23] MEDS: Gabapentin 600 MG Tablet PO ×3 (05:12→21:08)
[2019-07-23] MEDS: Enoxaparin 100 MG/ML Syringe SC ×2 (05:12→17:52)
[2019-07-23] MEDS: Insulin Lispro 100 UNIT/ML INSULN.PEN SC ×7 (06:57→21:10)
[2019-07-23 07:05] LABS: Bedside Glucose 188 mg/dL (70-110)
[2019-07-23 07:36] VITALS: PULSE 80; RESP 21
[2019-07-23] MEDS: Ipratropium/Albuterol Sulfate 3 ML AMPUL.NEB INHALATION ×2 (07:36→21:45)
[2019-07-23 09:15] VITALS: BP 143/73; PULSE 95; RESP 18; TEMP 36.8; O2SAT 94
[2019-07-23] MEDS: Famotidine 20 MG Tablet PO ×2 (09:15→21:07)
[2019-07-23] MEDS: dilTIAZem CD 180 MG Capsule PO (09:15)
[2019-07-23] MEDS: Lisinopril 20 MG Tablet PO (09:15)
[2019-07-23] MEDS: Pantoprazole Sodium 40 MG Tablet PO (09:15)
--- NOTE | 2019-07-23 10:44 | CASEMGMT ---
Addendum entered by Ashlyn Parkinson 07/23/19 14:20: SW spoke with ID doctor and he feels patient may possibly be able to go on PO Antibiotics. KALANI called Macrina at [facility] and let her know this information. Ashlyn [employer] Original Note: Updates were faxed to [facility]. Macrina called KALANI and asked if patient will be on IV antibiotics at d/c. KALANI told her SW thinks he will be, but SW will have to confirm this and how long he will need them. Ashlyn [employer]
[2019-07-23] MEDS: Multivitamins,Therapeutic Tablet 1 TABLET PO (11:25)
--- NOTE | 2019-07-23 11:44 | PN_ITS ---
Patient Problems: Active and Suspected Problems Diabetic foot infection (Acute) Gangrene of toe (Acute) Diabetic ulcer of right foot (Acute) Osteomyelitis (Acute) PVD (peripheral vascular disease) (Acute) Type 2 diabetes mellitus with diabetic polyneuropathy (Acute) Subjective: Patient seen and examined. He has no complaints and feels well. Review of systems otherwise negative. Labs and vitals reviewed. Vitals/I&O's: Vital Signs Temp Pulse Resp BP Pulse Ox 98.2 F 95 18 143/73 H 94 07/23/19 09:15 07/23/19 09:15 07/23/19 09:15 07/23/19 09:15 07/23/19 09:15 Oxygen Delivery Method Room Air Weight: 215 lb 9.793 oz Body Mass Index (BMI) 30.0 Finger Stick Blood Glucose 239 Intake and Output for Last 24 Hours 07/21/19 07/22/19 07/23/19 23:59 23:59 23:59 Intake Total 2278 / 2278 1308 / 1308 1124 / 1124 Output Total 2850 / 2850 2950 / 2950 1750 / 1750 Balance -572 / -572 -1642 / -1642 -626 / -626 General: Alert, Oriented x3, Cooperative, No apparent distress HEENT: Atraumatic, PERRLA, EOMI, Normocephalic Oral: Moist Mucosa Neck: Supple, No JVD, Negative Carotid Bruits Lungs: Clear to auscultation, Normal air movement, No rhonchi, No wheeze, No rales Cardiovascular: Regular rate, Regular Rhythm, Normal S1, Normal S2, No murmurs Abdomen: Bowel Sounds Present, Soft, Non Tender, Non-Distended, No Hepato- splenomegaly Extremities: No edema, Capillary Refill Less than 3 Seconds Skin: No rashes, No breakdown Musculoskeletal: - - both LEs wrapped in SELMA bandage,. Lymphatic: No Cervical, Supraclavicular, or Inguinal Adenopathy Neurological: Cranial nerves II-XII grossly intact, Neuro grossly intact, Motor Exam 5/5 strength throughout Psych/Mental Status: Normal Affect, Appropriate, Alert and oriented to time, pl selma, person, mood and affect Microbiology Past 72 Hours 07/18/19 12:20 Bone - Right Foot Gram Stain - Final 07/18/19 12:20 Bone - Right Foot Wound Culture - Final No growth aerobically. 07/18/19 12:20 Bone - Right Foot Anaerobic Culture - Final No growth in 5 days. 07/18/19 12:20 Bone - Right Foot Gram Stain - Final 07/18/19 12:20 Bone - Right Foot Wound Culture - Final Klebsiella pneumoniae sp pneum Staphylococcus aureus Streptococcus agalactiae (B) Enterococcus faecalis Staphylococcus epidermidis 07/18/19 12:20 Bone - Right Foot Anaerobic Culture - Preliminary Checking for anaerobes, further studies to follow. 07/17/19 20:20 Wound - Toe Gram Stain - Final 07/17/19 20:20 Wound - Toe Wound Culture - Final Klebsiella pneumoniae sp pneum Staphylococcus epidermidis Streptococcus agalactiae (B) 07/17/19 20:20 Wound - Toe Anaerobic Culture - Preliminary Checking for anaerobes, further studies to follow. Laboratory Results 07/22/19 12:09: POC Glucose 317 H 07/22/19 16:07: POC Glucose 255 H 07/22/19 20:58: POC Glucose 283 H 07/23/19 06:56: POC Glucose 188 H Diagnostic Data Lower Extremity MRI 07/17/19 14:55 IMPRESSION: Subtle decreased signal on T1-weighted imaging within the distal phalanx of the great toe.. This demonstrates increased signal on T2-weighted images. In addition there is a linear area of low signal on the T1-weighted images through the great toe at the base of the tuft may represent a nondisplaced. There may be early osteomyelitis involving the tuft of the toe but poorly visualized on this study. Consider repeating the study with contrast for further evaluation if clinically indicated Edema is seen at the plantar surface of the foot at the level of the great toe. at 2100 Reported and signed by: Armida Caldera DO Electronically Signed: Armida Caldera MD at 20:59 EST Tel , Service support , Chest X-Ray 07/18/19 05:55 IMPRESSION: No acute cardiopulmonary process. Electronically Signed: Sky Daniels MD ([place]) at 13:25 EST , Service support , Foot X-Ray 07/18/19 12:05 IMPRESSION: First toe amputation. Electronically Signed: Sky Daniels MD ([place]) at 14:05 EST , Service support , Current Medications Acetaminophen (Tylenol) 650 mg PO Q6H PRN PRN PRN Reason: Non-cardiac pain (4-1010) Hydrocodone Bitart/Acetaminophen ([place] 5mg-325mg) 1 - 2 tablet PO Q4H PRN PRN PRN Reason: Pain Score 4-1010 Last Admin: 07/22/19 20:07 Dose: 2 tablet Documented by: Al Hydroxide/Mg Hydroxide (Mylanta Ii) 15 - 30 ml PO Q4H PRN PRN PRN Reason: INDIGESTION Last Admin: 07/22/19 20:06 Dose: 30 ml Documented by: Albuterol Sulfate (Ventolin Aerosols) 2.5 mg INHALATION Q2H PRN PRN PRN Reason: dyspnea, wheezing Albuterol/Ipratropium (Duoneb) 3 ml INHALATION Q6HWA.RT [facility] Last Admin: 07/23/19 07:36 Dose: 3 ml Documented by: Atorvastatin Calcium (Lipitor) 40 mg PO QHS [facility] Last Admin: 07/22/19 20:10 Dose: 40 mg Documented by: Diltiazem HCl (Cardizem Cd) 180 mg PO DAILY [facility] Last Admin: 07/23/19 09:15 Dose: 180 mg Documented by: Enoxaparin Sodium (Lovenox) 100 mg SC Q12@0600,1800 [facility] Last Admin: 07/23/19 05:12 Dose: 100 mg Documented by: Famotidine (Pepcid) 20 mg PO BID [facility] Last Admin: 07/23/19 09:15 Dose: 20 mg Documented by: Gabapentin (Neurontin) 600 mg PO TID [facility] Last Admin: 07/23/19 05:12 Dose: 600 mg Documented by: Glucagon () 1 mg IM .X1 PRN PRN Reason: Hypoglycemia Guaifenesin (Robitussin) 20 ml PO Q4H PRN PRN PRN Reason: COUGH Hydralazine HCl (Apresoline Iv) 10 mg IV Q4H PRN PRN PRN Reason: SBP > 160 Dextrose (Dextrose 10%-Water) 250 mls @ 999 mls/hr IV .Q16M PRN; Protocol PRN Reason: HYPOGLYCEMIA Ampicillin Sodium/Sulbactam (Sodium 3 gm/ Sodium Chloride) 112 mls @ 150 mls/hr IV Q6 [facility] Last Admin: 07/23/19 11:24 Dose: 130 mls/hr Documented by: Sodium Chloride () 250 mls @ 15 mls/hr IV .[id number] PRN PRN Reason: Saline Flush Sodium Chloride () 250 mls @ 15 mls/hr IV .[id number] PRN PRN Reason: Additional IVPB Infusion Insulin Glargine (Lantus (Bkc)) 30 units SC BID [facility] Last Admin: 07/23/19 09:15 Dose: 30 units Documented by: Insulin Human Lispro (Humalog Kwikpen (Bkc)) 5 unit SC TIDAC [facility] Last Admin: 07/23/19 11:29 Dose: 5 unit Documented by: Insulin Human Lispro (Humalog Kwikpen (Bkc)) 0 unit SC ACHS [facility]; Protocol Last Admin: 07/23/19 11:28 Dose: 3 units Documented by: Lisinopril (Zestril) 20 mg PO DAILY [facility] Last Admin: 07/23/19 09:15 Dose: 20 mg Documented by: Magnesium Hydroxide (Milk Of Magnesia) 30 ml PO DAILY PRN PRN Reason: Constipation Morphine Sulfate () 1 - 2 mg IV Q4H PRN PRN PRN Reason: Pain Score 1-10/10 Last Admin: 07/19/19 07:39 Dose: 2 mg Documented by: Multivitamins (Multivitamin) 1 tablet PO DAILY@1200 [facility] Last Admin: 07/23/19 11:25 Dose: 1 tablet Documented by: Nicotine (Nicoderm Cq (Pbkc)) 21 mg TRANSDERM. DAILY PRN PRN Reason: Nicotine Craving Nitroglycerin (Nitrostat) 0.4 mg SUBLINGUAL Q5M PRN PRN Reason: CARDIAC/CHEST PAIN Ondansetron HCl (Zofran) 4 mg IV Q8H PRN PRN PRN Reason: NAUSEA/VOMITING Pantoprazole Sodium (Protonix) 40 mg PO DAILY [facility] Last Admin: 07/23/19 09:15 Dose: 40 mg Documented by: Potassium Chloride (K-Dur) 20 meq PO TIDCM [facility] Last Admin: 07/23/19 11:25 Dose: 20 meq Documented by: Psyllium Hydrophilic Mucilloid (Metamucil) 1 packet PO DAILY PRN PRN PRN Reason: Constipation Senna/Docusate Sodium (Senokot-S, Donna-Colace) 2 tablet PO BID PRN PRN PRN Reason: Constipation Sodium Chloride () 10 - 40 ml IV UD PRN PRN Reason: SALINE FLUSH Last Admin: 07/20/19 05:47 Dose: 10 ml Documented by: Sodium Hypochlorite (Dakins Solution 0.25% (1/2 Strength)) 1 applic TOPICAL BID [facility]; Protocol Last Admin: 07/22/19 20:05 Dose: 1 applicatio Documented by: Temazepam (Restoril) 15 mg PO QHS PRN PRN PRN Reason: INSOMNIA Last Admin: 07/22/19 20:07 Dose: 15 mg Documented by: Throat Lozenges (Cepacol Sore Throat Lozenge) 1 lozenge MUCOUS MEM Q2H PRN PRN PRN Reason: Sore throat or cough STROKE Vital Signs/Narrative: Vital Signs Temp Pulse Resp BP Pulse Ox 07/23/19 09:15 98.2 F 95 18 143/73 H 94 Medical Necessity - Tobacco Use Smoking Status: Current every day smoker Tobacco Use: Cigarettes Assessment/Plan All Active Problems Screen for colon cancer (Acute) Diabetic foot infection (Acute) Gangrene of toe (Acute) Diabetic ulcer of right foot (Acute) Osteomyelitis (Acute) PVD (peripheral vascular disease) (Acute) Type 2 diabetes mellitus with diabetic polyneuropathy (Acute) 1. 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 Today is POD 5 * Patient has no complaints and feels well today. * Wound cultures positive for Klebsiella, staph epidermidis and strep agalactiae. * ID on board. Patient currently on Unasyn. * 2. Peripheral vascular disease * Vascular surgery Dr. Shah on board. * Patient known to have left SFA occlusion with previous bypass plans for patient to undergo angiogram. * Patient's Coumadin held and patient now on Lovenox. He is to have angiogram done on 07/25/2019 and subsequently [facility] be [facility]. * Continue therapeutic Lovenox. * * 3. Type 2 diabetes mellitus * Complicated with polyneuropathy. A1c is 13.3. * On Lantus 30 units twice daily and insulin sliding scale. * Accu-Cheks AC at bedtime. * 4. Hyperlipidemia: On statin. 5. Hypertension: On lisinopril and Cardizem. 6. History of previous DVTs: On anticoagulation with Coumadin but this was held as he is going to have angiogram. Currently on therapeutic Lovenox. 7. GERD: On famotidine. 8. COPD: On breathing treatments. DVT prophylaxis: On Lovenox. Code Visit Inpatient E&M: 52256 Subs Hosp L2
[2019-07-23 12:06] LABS: Bedside Glucose 247 mg/dL (70-110)
[2019-07-23] MEDS: DAKIN'S SOL HALF STRENGTH (=0.25%) 1 APPLIC TOPICAL ×2 (14:36→21:09)
[2019-07-23 14:40] VITALS: BP 145/85; PULSE 84; RESP 18; TEMP 37; O2SAT 95
--- NOTE | 2019-07-23 14:54 | PCM.PN.ID ---
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 - Physical Exam Vitals/I&O's: Vital Signs Temp Pulse Resp BP Pulse Ox 98.2 F 95 18 143/73 H 94 07/23/19 09:15 07/23/19 09:15 07/23/19 09:15 07/23/19 09:15 07/23/19 09:15 Oxygen Delivery Method Room Air Weight: 97.8 kg Body Mass Index (BMI) 30.0 Finger Stick Blood Glucose 239 Intake and Output for Last 24 Hours 07/21/19 07/22/19 07/23/19 23:59 23:59 23:59 Intake Total 2278 / 2278 1308 / 1308 1236 / 1236 Output Total 2850 / 2850 2950 / 2950 1750 / 1750 Balance -572 / -572 -1642 / -1642 -514 / -514 General: Alert, Cooperative, No apparent distress Lungs: Clear to auscultation, Normal air movement Cardiovascular: Regular rate, Regular Rhythm Abdomen: Soft, Non Tender, Non-Distended Skin: Ulcer/ Wound - reviewed photos, foot wrapped Microbiology Past 72 Hours 07/18/19 12:20 Bone - Right Foot Gram Stain - Final 07/18/19 12:20 Bone - Right Foot Wound Culture - Final Klebsiella pneumoniae sp pneum Staphylococcus aureus Streptococcus agalactiae (B) Enterococcus faecalis Staphylococcus epidermidis 07/18/19 12:20 Bone - Right Foot Anaerobic Culture - Preliminary Gram negative cocco bacillus Anaerobic cocci 07/17/19 20:20 Wound - Toe Gram Stain - Final 07/17/19 20:20 Wound - Toe Wound Culture - Final Klebsiella pneumoniae sp pneum Staphylococcus epidermidis Streptococcus agalactiae (B) 07/17/19 20:20 Wound - Toe Anaerobic Culture - Final Anaerobic cocci 07/18/19 12:20 Bone - Right Foot Gram Stain - Final 07/18/19 12:20 Bone - Right Foot Wound Culture - Final No growth aerobically. 07/18/19 12:20 Bone - Right Foot Anaerobic Culture - Final No growth in 5 days. Laboratory Results 07/22/19 16:07: POC Glucose 255 H 07/22/19 20:58: POC Glucose 283 H 07/23/19 06:56: POC Glucose 188 H 07/23/19 11:28: POC Glucose 247 H Current Medications Acetaminophen (Tylenol) 650 mg PO Q6H PRN PRN PRN Reason: Non-cardiac pain (4-1010) Hydrocodone Bitart/Acetaminophen ([place] 5mg-325mg) 1 - 2 tablet PO Q4H PRN PRN PRN Reason: Pain Score 4-1010 Last Admin: 07/22/19 20:07 Dose: 2 tablet Documented by: Al Hydroxide/Mg Hydroxide (Mylanta Ii) 15 - 30 ml PO Q4H PRN PRN PRN Reason: INDIGESTION Last Admin: 07/22/19 20:06 Dose: 30 ml Documented by: Albuterol Sulfate (Ventolin Aerosols) 2.5 mg INHALATION Q2H PRN PRN PRN Reason: dyspnea, wheezing Albuterol/Ipratropium (Duoneb) 3 ml INHALATION Q6HWA.RT [facility] Last Admin: 07/23/19 13:49 Dose: Not Given Documented by: Atorvastatin Calcium (Lipitor) 40 mg PO QHS [facility] Last Admin: 07/22/19 20:10 Dose: 40 mg Documented by: Diltiazem HCl (Cardizem Cd) 180 mg PO DAILY [facility] Last Admin: 07/23/19 09:15 Dose: 180 mg Documented by: Enoxaparin Sodium (Lovenox) 100 mg SC Q12@0600,1800 [facility] Last Admin: 07/23/19 05:12 Dose: 100 mg Documented by: Famotidine (Pepcid) 20 mg PO BID [facility] Last Admin: 07/23/19 09:15 Dose: 20 mg Documented by: Gabapentin (Neurontin) 600 mg PO TID [facility] Last Admin: 07/23/19 14:35 Dose: 600 mg Documented by: Glucagon () 1 mg IM .X1 PRN PRN Reason: Hypoglycemia Guaifenesin (Robitussin) 20 ml PO Q4H PRN PRN PRN Reason: COUGH Hydralazine HCl (Apresoline Iv) 10 mg IV Q4H PRN PRN PRN Reason: SBP > 160 Dextrose (Dextrose 10%-Water) 250 mls @ 999 mls/hr IV .Q16M PRN; Protocol PRN Reason: HYPOGLYCEMIA Ampicillin Sodium/Sulbactam (Sodium 3 gm/ Sodium Chloride) 112 mls @ 150 mls/hr IV Q6 [facility] Last Infusion: 07/23/19 12:16 Dose: Infused Documented by: Sodium Chloride () 250 mls @ 15 mls/hr IV .[id number] PRN PRN Reason: Saline Flush Sodium Chloride () 250 mls @ 15 mls/hr IV .[id number] PRN PRN Reason: Additional IVPB Infusion Insulin Glargine (Lantus (Bk)) 30 units SC BID [facility] Last Admin: 07/23/19 09:15 Dose: 30 units Documented by: Insulin Human Lispro (Humalog Kwikpen ([facility])) 5 unit SC TIDAC [facility] Last Admin: 07/23/19 11:29 Dose: 5 unit Documented by: Insulin Human Lispro (Humalog Kwikpen ([facility])) 0 unit SC ACHS [facility]; Protocol Last Admin: 07/23/19 11:28 Dose: 3 units Documented by: Lisinopril (Zestril) 20 mg PO DAILY [facility] Last Admin: 07/23/19 09:15 Dose: 20 mg Documented by: Magnesium Hydroxide (Milk Of Magnesia) 30 ml PO DAILY PRN PRN Reason: Constipation Morphine Sulfate () 1 - 2 mg IV Q4H PRN PRN PRN Reason: Pain Score 1-10/10 Last Admin: 07/19/19 07:39 Dose: 2 mg Documented by: Multivitamins (Multivitamin) 1 tablet PO DAILY@1200 [facility] Last Admin: 07/23/19 11:25 Dose: 1 tablet Documented by: Nicotine (Nicoderm Cq (Pbkc)) 21 mg TRANSDERM. DAILY PRN PRN Reason: Nicotine Craving Nitroglycerin (Nitrostat) 0.4 mg SUBLINGUAL Q5M PRN PRN Reason: CARDIAC/CHEST PAIN Ondansetron HCl (Zofran) 4 mg IV Q8H PRN PRN PRN Reason: NAUSEA/VOMITING Pantoprazole Sodium (Protonix) 40 mg PO DAILY [facility] Last Admin: 07/23/19 09:15 Dose: 40 mg Documented by: Potassium Chloride (K-Dur) 20 meq PO TIDCM [facility] Last Admin: 07/23/19 11:25 Dose: 20 meq Documented by: Psyllium Hydrophilic Mucilloid (Metamucil) 1 packet PO DAILY PRN PRN PRN Reason: Constipation Senna/Docusate Sodium (Senokot-S, Donna-Colace) 2 tablet PO BID PRN PRN PRN Reason: Constipation Sodium Chloride () 10 - 40 ml IV UD PRN PRN Reason: SALINE FLUSH Last Admin: 07/20/19 05:47 Dose: 10 ml Documented by: Sodium Hypochlorite (Dakins Solution 0.25% (1/2 Strength)) 1 applic TOPICAL BID [facility]; Protocol Last Admin: 07/23/19 14:36 Dose: 1 applicatio Documented by: Temazepam (Restoril) 15 mg PO QHS PRN PRN PRN Reason: INSOMNIA Last Admin: 07/22/19 20:07 Dose: 15 mg Documented by: Throat Lozenges (Cepacol Sore Throat Lozenge) 1 lozenge MUCOUS MEM Q2H PRN PRN PRN Reason: Sore throat or cough Medical Necessity - Tobacco Use Smoking Status: Current every day smoker Tobacco Use: Cigarettes Route of nutrition/ use of supplements: [] Nutritional Intake: [] IV Site: [] Abreu Catheter: [] - Assessment/Plan Antibiotics: [] Assessment/Plan: [] Active and Suspected Problems Diabetic foot infection (Acute) Gangrene of toe (Acute) Diabetic ulcer of right foot (Acute) Osteomyelitis (Acute) PVD (peripheral vascular disease) (Acute) 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 Barney. Surg cx with klebs, MSSA, GBS, enterococcus, MSSE, anaerobes. On unasyn. May get vascular procedure this week. Cont unasyn. With clear surgical margins and possible revascularization, may be candidate for po augmentin at discharge. Will follow, d/w human services case manager
--- NOTE | 2019-07-23 15:27 | NURSING ---
wound photo: right foot
[2019-07-23] MEDS: HYDROcodone Bitartrate/Apap 5/325 Tablet PO ×2 (15:43→21:08)
[2019-07-23 17:00] LABS: Bedside Glucose 256 mg/dL (70-110)
--- NOTE | 2019-07-23 18:24 | PN_ITS ---
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 Patient resting in bed with no complaints. No complaints of fever, chills, nausea or vomiting. Vascular intervention planned for this Tuesday with Dr. Shah. - Physical Exam Vitals/I&O's: Vital Signs Temp Pulse Resp BP Pulse Ox 98.6 F 84 18 145/85 H 95 07/23/19 14:40 07/23/19 14:40 07/23/19 14:40 07/23/19 14:40 07/23/19 14:40 Oxygen Delivery Method Room Air Weight: 97.8 kg Body Mass Index (BMI) 30.0 Finger Stick Blood Glucose 239 Intake and Output for Last 24 Hours 07/21/19 07/22/19 07/23/19 23:59 23:59 23:59 Intake Total 2278 / 2278 1308 / 1308 1636 / 1636 Output Total 2850 / 2850 2950 / 2950 2700 / 2700 Balance -572 / -572 -1642 / -1642 -1064 / -1064 General: Alert, Oriented x3, Cooperative, No apparent distress Extremities: - - s/p right 1st toe debridement without evidence of post op complication. Musculoskeletal: No Tenderness to Palpation of Joints or Extremities Psych/Mental Status: Appropriate, Alert and oriented to time, place, person, mood and affect Microbiology Past 72 Hours 07/18/19 12:20 Bone - Right Foot Gram Stain - Final 07/18/19 12:20 Bone - Right Foot Wound Culture - Final Klebsiella pneumoniae sp pneum Staphylococcus aureus Streptococcus agalactiae (B) Enterococcus faecalis Staphylococcus epidermidis 07/18/19 12:20 Bone - Right Foot Anaerobic Culture - Preliminary Gram negative cocco bacillus Anaerobic cocci 07/17/19 20:20 Wound - Toe Gram Stain - Final 07/17/19 20:20 Wound - Toe Wound Culture - Final Klebsiella pneumoniae sp pneum Staphylococcus epidermidis Streptococcus agalactiae (B) 07/17/19 20:20 Wound - Toe Anaerobic Culture - Final Anaerobic cocci 07/18/19 12:20 Bone - Right Foot Gram Stain - Final 07/18/19 12:20 Bone - Right Foot Wound Culture - Final No growth aerobically. 07/18/19 12:20 Bone - Right Foot Anaerobic Culture - Final No growth in 5 days. Laboratory Results 07/22/19 20:58: POC Glucose 283 H 07/23/19 06:56: POC Glucose 188 H 07/23/19 11:28: POC Glucose 247 H 07/23/19 16:51: POC Glucose 256 H Current Medications Acetaminophen (Tylenol) 650 mg PO Q6H PRN PRN PRN Reason: Non-cardiac pain (4-04/26) Hydrocodone Bitart/Acetaminophen ([place] 5mg-325mg) 1 - 2 tablet PO Q4H PRN PRN PRN Reason: Pain Score 4-04/26 Last Admin: 07/23/19 15:43 Dose: 2 tablet Documented by: Al Hydroxide/Mg Hydroxide (Mylanta Ii) 15 - 30 ml PO Q4H PRN PRN PRN Reason: INDIGESTION Last Admin: 07/22/19 20:06 Dose: 30 ml Documented by: Albuterol Sulfate (Ventolin Aerosols) 2.5 mg INHALATION Q2H PRN PRN PRN Reason: dyspnea, wheezing Albuterol/Ipratropium (Duoneb) 3 ml INHALATION Q6HWA.RT [facility] Last Admin: 07/23/19 13:49 Dose: Not Given Documented by: Atorvastatin Calcium (Lipitor) 40 mg PO QHS [facility] Last Admin: 07/22/19 20:10 Dose: 40 mg Documented by: Diltiazem HCl (Cardizem Cd) 180 mg PO DAILY [facility] Last Admin: 07/23/19 09:15 Dose: 180 mg Documented by: Enoxaparin Sodium (Lovenox) 100 mg SC Q12@0600,1800 [facility] Last Admin: 07/23/19 17:52 Dose: 100 mg Documented by: Famotidine (Pepcid) 20 mg PO BID [facility] Last Admin: 07/23/19 09:15 Dose: 20 mg Documented by: Gabapentin (Neurontin) 600 mg PO TID [facility] Last Admin: 07/23/19 14:35 Dose: 600 mg Documented by: Glucagon () 1 mg IM .X1 PRN PRN Reason: Hypoglycemia Guaifenesin (Robitussin) 20 ml PO Q4H PRN PRN PRN Reason: COUGH Hydralazine HCl (Apresoline Iv) 10 mg IV Q4H PRN PRN PRN Reason: SBP > 160 Dextrose (Dextrose 10%-Water) 250 mls @ 999 mls/hr IV .Q16M PRN; Protocol PRN Reason: HYPOGLYCEMIA Ampicillin Sodium/Sulbactam (Sodium 3 gm/ Sodium Chloride) 112 mls @ 150 mls/hr IV Q6 [facility] Last Admin: 07/23/19 17:52 Dose: 150 mls/hr Documented by: Sodium Chloride () 250 mls @ 15 mls/hr IV .[id number] PRN PRN Reason: Saline Flush Sodium Chloride () 250 mls @ 15 mls/hr IV .[id number] PRN PRN Reason: Additional IVPB Infusion Insulin Glargine (Lantus (Bkc)) 30 units SC BID [facility] Last Admin: 07/23/19 09:15 Dose: 30 units Documented by: Insulin Human Lispro (Humalog Kwikpen ([facility])) 5 unit SC TIDAC [facility] Last Admin: 07/23/19 16:53 Dose: 5 unit Documented by: Insulin Human Lispro (Humalog Kwikpen ([facility])) 0 unit SC ACHS [facility]; Protocol Last Admin: 07/23/19 16:53 Dose: 3 units Documented by: Lisinopril (Zestril) 20 mg PO DAILY [facility] Last Admin: 07/23/19 09:15 Dose: 20 mg Documented by: Magnesium Hydroxide (Milk Of Magnesia) 30 ml PO DAILY PRN PRN Reason: Constipation Morphine Sulfate () 1 - 2 mg IV Q4H PRN PRN PRN Reason: Pain Score 1-10/10 Last Admin: 07/19/19 07:39 Dose: 2 mg Documented by: Multivitamins (Multivitamin) 1 tablet PO DAILY@1200 [facility] Last Admin: 07/23/19 11:25 Dose: 1 tablet Documented by: Nicotine (Nicoderm Cq (Pbkc)) 21 mg TRANSDERM. DAILY PRN PRN Reason: Nicotine Craving Nitroglycerin (Nitrostat) 0.4 mg SUBLINGUAL Q5M PRN PRN Reason: CARDIAC/CHEST PAIN Ondansetron HCl (Zofran) 4 mg IV Q8H PRN PRN PRN Reason: NAUSEA/VOMITING Pantoprazole Sodium (Protonix) 40 mg PO DAILY [facility] Last Admin: 07/23/19 09:15 Dose: 40 mg Documented by: Potassium Chloride (K-Dur) 20 meq PO TIDCM [facility] Last Admin: 07/23/19 16:57 Dose: 20 meq Documented by: Psyllium Hydrophilic Mucilloid (Metamucil) 1 packet PO DAILY PRN PRN PRN Reason: Constipation Senna/Docusate Sodium (Senokot-S, Donna-Colace) 2 tablet PO BID PRN PRN PRN Reason: Constipation Sodium Chloride () 10 - 40 ml IV UD PRN PRN Reason: SALINE FLUSH Last Admin: 07/20/19 05:47 Dose: 10 ml Documented by: Sodium Hypochlorite (Dakins Solution 0.25% (1/2 Strength)) 1 applic TOPICAL BID [facility]; Protocol Last Admin: 07/23/19 14:36 Dose: 1 applicatio Documented by: Temazepam (Restoril) 15 mg PO QHS PRN PRN PRN Reason: INSOMNIA Last Admin: 07/22/19 20:07 Dose: 15 mg Documented by: Throat Lozenges (Cepacol Sore Throat Lozenge) 1 lozenge MUCOUS MEM Q2H PRN PRN PRN Reason: Sore throat or cough Medical Necessity - Tobacco Use Smoking Status: Current every day smoker Tobacco Use: Cigarettes Assessment/Plan All Active Problems Screen for colon cancer (Acute) Diabetic foot infection (Acute) Gangrene of toe (Acute) Diabetic ulcer of right foot (Acute) Osteomyelitis (Acute) PVD (peripheral vascular disease) (Acute) 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 Reviewed cultures, and patient on antibiotics per Infectious Disease. Patient planning to have lower extremity vascular intervention on Tuesday. We will likely proceed with a wound vac once this is completed. Patient is to continue to be nonweightbearing to the right foot. If he needs to pivot or transfer very short distance he is to do this with heel weightbearing to the right side. Continued medical management and DVT prophylaxis appreciated per primary team. Since wound is stable at this time and awaiting vascular intervention, and with wound orders placed, podiatry will follow up with patient once vascular procedure is completed, sooner if needed.
[2019-07-23 19:43] VITALS: BP 150/79; PULSE 83; RESP 18; TEMP 36.9; O2SAT 95
[2019-07-23] MEDS: Temazepam 15 MG Capsule PO (21:07)
[2019-07-23] MEDS: Atorvastatin Calcium 40 MG Tablet PO (21:08)
[2019-07-23 21:20] LABS: Bedside Glucose 264 mg/dL (70-110)
[2019-07-23 21:46] VITALS: PULSE 84; RESP 18
[2019-07-24] VITALS (7 sets, daily range): BP systolic 120–153; BP diastolic 56–87; PULSE 74–90; RESP 14–22; TEMP 36.5–37.8; O2SAT 92–96
[2019-07-24] MEDS: Gabapentin 600 MG Tablet PO ×3 (05:19→21:56)
[2019-07-24] MEDS: Enoxaparin 100 MG/ML Syringe SC (05:19)
--- NOTE | 2019-07-24 07:20 | CASEMGMT ---
SW received a message from Macrina at [place] and patient was approved. Ashlyn ROBERTS MSW
[2019-07-24] MEDS: Insulin Lispro 100 UNIT/ML INSULN.PEN SC ×7 (08:11→22:14)
[2019-07-24 08:22] LABS: Absolute Lymphocyte Count 1.76 X10^3/uL (0.83-4.51); Absolute Neutrophil Count 3.9 X10^3/uL (2.0-7.7); Basophil# 0.03 X10^3/uL; Basophil% 0.5 % (0-1); Eosinophil# 0.18 X10^3/uL; Eosinophils% 2.8 % (0-5); Hematocrit 36.1 % (40-54); Hemoglobin 11.3 g/dL (13.0-16.5); Lymphocyte # 1.76 X10^3/ul (4.0); Lymphocyte % 27.2 % (19-41); Mean Corp Hgb Conc 31.3 g/dL (32-36); Mean Corpuscular Hgb 28.5 pg (27.0-32.0); Mean Corpuscular Volume 91.2 fL (80-94); Mean Platelet Vol. 9.3 fl (6.2-12.0); Monocyte# 0.58 X10^3/uL; NRBC Flagged by Analyzer 0 % (0-5); Neutrophil # 3.88 X10^3/uL (2.7-7.7); Platelet Count 266 K/mm3 (150-450); RBC Distribution Width CV 13.1 % (11.6-14.6); RBC Distribution Width SD 43.3 fl (35.1-43.9); Red Blood Count 3.96 M/mm3 (4.6-6.2); White Blood Count 6.5 K/mm3 (4.4-11.0)
--- NOTE | 2019-07-24 08:26 | NURSING ---
Dr Shah's office called to inform us that they have him on their schedule for an angiogram tomorrow 07/25/2019 at 0730.
[2019-07-24 08:41] LABS: Bedside Glucose 162 mg/dL (70-110)
--- NOTE | 2019-07-24 09:00 | NURSING ---
patient without antibiotic resistant bacteria, infected area amputated and wound appropriately covered. Taken off contact precautions. Discussed with Shelbie from infection control
[2019-07-24] MEDS: Famotidine 20 MG Tablet PO ×2 (09:39→21:56)
[2019-07-24] MEDS: dilTIAZem CD 180 MG Capsule PO (09:41)
[2019-07-24] MEDS: Pantoprazole Sodium 40 MG Tablet PO (09:41)
[2019-07-24] MEDS: Lisinopril 20 MG Tablet PO (09:42)
--- NOTE | 2019-07-24 09:49 | PN.ID_ITS ---
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 - Physical Exam Vitals/I&O's: Vital Signs Temp Pulse Resp BP Pulse Ox 100.0 F H 74 22 H 153/87 H 94 07/24/19 02:25 07/24/19 02:25 07/24/19 02:25 07/24/19 02:25 07/24/19 02:25 Oxygen Delivery Method Bi-pap Weight: 97.8 kg Body Mass Index (BMI) 30.0 Finger Stick Blood Glucose 239 Intake and Output for Last 24 Hours 07/22/19 07/23/19 07/24/19 23:59 23:59 23:59 Intake Total 1308 / 1308 1860 / 1860 112 / 112 Output Total 2950 / 2950 3375 / 3375 450 / 450 Balance -1642 / -1642 -1515 / -1515 -338 / -338 General: Alert, Cooperative, No apparent distress Lungs: Clear to auscultation, Normal air movement Cardiovascular: Regular rate, Regular Rhythm Abdomen: Soft, Non Tender, Non-Distended Skin: Ulcer/ Wound - foot wrapped Microbiology Past 72 Hours 07/18/19 12:20 Bone - Right Foot Gram Stain - Final 07/18/19 12:20 Bone - Right Foot Wound Culture - Final Klebsiella pneumoniae sp pneum Staphylococcus aureus Streptococcus agalactiae (B) Enterococcus faecalis Staphylococcus epidermidis 07/18/19 12:20 Bone - Right Foot Anaerobic Culture - Final Bacteroides thetaiotaomicron Anaerobic cocci 07/17/19 20:20 Wound - Toe Gram Stain - Final 07/17/19 20:20 Wound - Toe Wound Culture - Final Klebsiella pneumoniae sp pneum Staphylococcus epidermidis Streptococcus agalactiae (B) 07/17/19 20:20 Wound - Toe Anaerobic Culture - Final Anaerobic cocci 07/18/19 12:20 Bone - Right Foot Gram Stain - Final 07/18/19 12:20 Bone - Right Foot Wound Culture - Final No growth aerobically. 07/18/19 12:20 Bone - Right Foot Anaerobic Culture - Final No growth in 5 days. Laboratory Results 07/23/19 11:28: POC Glucose 247 H 07/23/19 16:51: POC Glucose 256 H 07/23/19 21:06: POC Glucose 264 H 07/24/19 08:07: POC Glucose 162 H 07/24/19 08:12: WBC 6.5, RBC 3.96 L, Hgb 11.3 L, Hct 36.1 L, MCV 91.2, MCH 28.5, MCHC 31.3 L, RDW Std Deviation 43.3, RDW Coeff of Estrada 13.1, Plt Count 266, MPV 9.3, Immature Gran % (Auto) 0.500, Neut % (Auto) 60.0, Lymph % (Auto) 27.2, Luna % (Auto) 9.0, Eos % (Auto) 2.8, Baso % (Auto) 0.5, Absolute Neuts (auto) 3.9, Absolute Lymphs (auto) 1.76, Nucleated RBC % 0 Current Medications Acetaminophen (Tylenol) 650 mg PO Q6H PRN PRN PRN Reason: Non-cardiac pain (4-10/10) Hydrocodone Bitart/Acetaminophen ([place] 5mg-325mg) 1 - 2 tablet PO Q4H PRN PRN PRN Reason: Pain Score 4-10/10 Last Admin: 07/23/19 21:08 Dose: 2 tablet Documented by: Al Hydroxide/Mg Hydroxide (Mylanta Ii) 15 - 30 ml PO Q4H PRN PRN PRN Reason: INDIGESTION Last Admin: 07/22/19 20:06 Dose: 30 ml Documented by: Albuterol Sulfate (Ventolin Aerosols) 2.5 mg INHALATION Q2H PRN PRN PRN Reason: dyspnea, wheezing Albuterol/Ipratropium (Duoneb) 3 ml INHALATION Q6HWA.RT [facility] Last Admin: 07/24/19 08:00 Dose: Not Given Documented by: Atorvastatin Calcium (Lipitor) 40 mg PO QHS [facility] Last Admin: 07/23/19 21:08 Dose: 40 mg Documented by: Diltiazem HCl (Cardizem Cd) 180 mg PO DAILY [facility] Last Admin: 07/24/19 09:41 Dose: 180 mg Documented by: Enoxaparin Sodium (Lovenox) 100 mg SC Q12@0600,1800 [facility] Stop: 07/24/19 12:00 Last Admin: 07/24/19 05:19 Dose: 100 mg Documented by: Famotidine (Pepcid) 20 mg PO BID [facility] Last Admin: 07/24/19 09:39 Dose: 20 mg Documented by: Gabapentin (Neurontin) 600 mg PO TID [facility] Last Admin: 07/24/19 05:19 Dose: 600 mg Documented by: Glucagon () 1 mg IM .X1 PRN PRN Reason: Hypoglycemia Guaifenesin (Robitussin) 20 ml PO Q4H PRN PRN PRN Reason: COUGH Hydralazine HCl (Apresoline Iv) 10 mg IV Q4H PRN PRN PRN Reason: SBP > 160 Dextrose (Dextrose 10%-Water) 250 mls @ 999 mls/hr IV .Q16M PRN; Protocol PRN Reason: HYPOGLYCEMIA Ampicillin Sodium/Sulbactam (Sodium 3 gm/ Sodium Chloride) 112 mls @ 150 mls/hr IV Q6 [facility] Last Infusion: 07/24/19 06:03 Dose: Infused Documented by: Sodium Chloride () 250 mls @ 15 mls/hr IV .[id number] PRN PRN Reason: Saline Flush Sodium Chloride () 250 mls @ 15 mls/hr IV .[id number] PRN PRN Reason: Additional IVPB Infusion Insulin Glargine (Lantus (Bkc)) 30 units SC BID [facility] Last Admin: 07/24/19 09:38 Dose: 30 units Documented by: Insulin Human Lispro (Humalog Kwikpen ([facility])) 5 unit SC TIDAC [facility] Last Admin: 07/24/19 08:11 Dose: 5 unit Documented by: Insulin Human Lispro (Humalog Kwikpen (Bkc)) 0 unit SC ACHS [facility]; Protocol Last Admin: 07/24/19 08:11 Dose: 1 units Documented by: Lisinopril (Zestril) 20 mg PO DAILY [facility] Last Admin: 07/24/19 09:42 Dose: 20 mg Documented by: Magnesium Hydroxide (Milk Of Magnesia) 30 ml PO DAILY PRN PRN Reason: Constipation Morphine Sulfate () 1 - 2 mg IV Q4H PRN PRN PRN Reason: Pain Score 1-10/10 Last Admin: 07/19/19 07:39 Dose: 2 mg Documented by: Multivitamins (Multivitamin) 1 tablet PO DAILY@1200 [facility] Last Admin: 07/23/19 11:25 Dose: 1 tablet Documented by: Nicotine (Nicoderm Cq (Pbkc)) 21 mg TRANSDERM. DAILY PRN PRN Reason: Nicotine Craving Nitroglycerin (Nitrostat) 0.4 mg SUBLINGUAL Q5M PRN PRN Reason: CARDIAC/CHEST PAIN Ondansetron HCl (Zofran) 4 mg IV Q8H PRN PRN PRN Reason: NAUSEA/VOMITING Pantoprazole Sodium (Protonix) 40 mg PO DAILY [facility] Last Admin: 07/24/19 09:41 Dose: 40 mg Documented by: Potassium Chloride (K-Dur) 20 meq PO TIDCM [facility] Last Admin: 07/24/19 08:15 Dose: 20 meq Documented by: Psyllium Hydrophilic Mucilloid (Metamucil) 1 packet PO DAILY PRN PRN PRN Reason: Constipation Senna/Docusate Sodium (Senokot-S, Donna-Colace) 2 tablet PO BID PRN PRN PRN Reason: Constipation Sodium Chloride () 10 - 40 ml IV UD PRN PRN Reason: SALINE FLUSH Last Admin: 07/20/19 05:47 Dose: 10 ml Documented by: Sodium Hypochlorite (Dakins Solution 0.25% (1/2 Strength)) 1 applic TOPICAL BID [facility]; Protocol Last Admin: 07/23/19 21:09 Dose: 1 applicatio Documented by: Temazepam (Restoril) 15 mg PO QHS PRN PRN PRN Reason: INSOMNIA Last Admin: 07/23/19 21:07 Dose: 15 mg Documented by: Throat Lozenges (Cepacol Sore Throat Lozenge) 1 lozenge MUCOUS MEM Q2H PRN PRN PRN Reason: Sore throat or cough Medical Necessity - Tobacco Use Smoking Status: Current every day smoker Tobacco Use: Cigarettes Route of nutrition/ use of supplements: [] Nutritional Intake: [] IV Site: [] Abreu Catheter: [] - Assessment/Plan Antibiotics: [] Assessment/Plan: [] Active and Suspected Problems Diabetic foot infection (Acute) Gangrene of toe (Acute) Diabetic ulcer of right foot (Acute) Osteomyelitis (Acute) PVD (peripheral vascular disease) (Acute) 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 Barney. Surg cx with klebs, MSSA, GBS, enterococcus, MSSE, anaerobes. On unasyn. May get vascular procedure tomorrow. Cont unasyn. With clear surgical margins and possible revascularization, may be candidate for po augmentin at discharge. Will follow
[2019-07-24] MEDS: HYDROcodone Bitartrate/Apap 5/325 Tablet PO ×2 (11:02→21:52)
[2019-07-24] MEDS: DAKIN'S SOL HALF STRENGTH (=0.25%) 1 APPLIC TOPICAL (11:03)
[2019-07-24] MEDS: Multivitamins,Therapeutic Tablet 1 TABLET PO (11:43)
--- NOTE | 2019-07-24 11:52 | CASEMGMT ---
Addendum entered by Ashlyn Parkinson 07/24/19 15:31: Received call from Macrina and she said patient's pre-cert will be good through tomorrow. Therefore, if he is not discharged tomorrow he will need another pre-cert. Ashlyn GARCIA Original Note: KALANI called Macrina at [place] and left her a voice mail letting her know patient will be coming tomorrow. KALANI asked her to let SW know if the pre-cert is still good tomorrow. Ashlyn ROBERTS [employer]
[2019-07-24 12:11] LABS: Bedside Glucose 270 mg/dL (70-110)
--- NOTE | 2019-07-24 12:45 | PN_ITS ---
Patient Problems: Active and Suspected Problems Diabetic foot infection (Acute) Gangrene of toe (Acute) Diabetic ulcer of right foot (Acute) Osteomyelitis (Acute) PVD (peripheral vascular disease) (Acute) Type 2 diabetes mellitus with diabetic polyneuropathy (Acute) Subjective: Patient seen and examined. He has no complaints and feels well. Review systems otherwise negative. He is for angiogram tomorrow. Labs and vitals reviewed. Vitals/I&O's: Vital Signs Temp Pulse Resp BP Pulse Ox 97.9 F 82 16 132/85 H 96 07/24/19 09:30 07/24/19 09:30 07/24/19 09:30 07/24/19 09:30 07/24/19 09:30 Oxygen Delivery Method Room Air Weight: 215 lb 9.793 oz Body Mass Index (BMI) 30.0 Finger Stick Blood Glucose 239 Intake and Output for Last 24 Hours 07/22/19 07/23/19 07/24/19 23:59 23:59 23:59 Intake Total 1308 / 1308 1860 / 1860 712 / 712 Output Total 2950 / 2950 3375 / 3375 450 / 450 Balance -1642 / -1642 -1515 / -1515 262 / 262 General: Alert, Oriented x3, Cooperative, No apparent distress HEENT: Atraumatic, PERRLA, EOMI, Normocephalic Oral: Moist Mucosa Neck: Supple, No JVD, Negative Carotid Bruits Lungs: Clear to auscultation, Normal air movement, No rhonchi, No wheeze, No rales Cardiovascular: Regular rate, Regular Rhythm, Normal S1, Normal S2, No murmurs Abdomen: Bowel Sounds Present, Soft, Non Tender, Non-Distended, No Hepato- splenomegaly Extremities: No edema, Capillary Refill Less than 3 Seconds Skin: No rashes, No breakdown Musculoskeletal: - - both LEs wrapped in SELMA bandage,. Lymphatic: No Cervical, Supraclavicular, or Inguinal Adenopathy Neurological: Cranial nerves II-XII grossly intact, Neuro grossly intact, Motor Exam 5/5 strength throughout Psych/Mental Status: Normal Affect, Appropriate, Alert and oriented to time, place, person, mood and affect Microbiology Past 72 Hours 07/18/19 12:20 Bone - Right Foot Gram Stain - Final 07/18/19 12:20 Bone - Right Foot Wound Culture - Final Klebsiella pneumoniae sp pneum Staphylococcus aureus Streptococcus agalactiae (B) Enterococcus faecalis Staphylococcus epidermidis 07/18/19 12:20 Bone - Right Foot Anaerobic Culture - Final Bacteroides thetaiotaomicron Anaerobic cocci 07/17/19 20:20 Wound - Toe Gram Stain - Final 07/17/19 20:20 Wound - Toe Wound Culture - Final Klebsiella pneumoniae sp pneum Staphylococcus epidermidis Streptococcus agalactiae (B) 07/17/19 20:20 Wound - Toe Anaerobic Culture - Final Anaerobic cocci 07/18/19 12:20 Bone - Right Foot Gram Stain - Final 07/18/19 12:20 Bone - Right Foot Wound Culture - Final No growth aerobically. 07/18/19 12:20 Bone - Right Foot Anaerobic Culture - Final No growth in 5 days. Laboratory Results 07/23/19 16:51: POC Glucose 256 H 07/23/19 21:06: POC Glucose 264 H 07/24/19 08:07: POC Glucose 162 H 07/24/19 08:12: WBC 6.5, RBC 3.96 L, Hgb 11.3 L, Hct 36.1 L, MCV 91.2, MCH 28.5, MCHC 31.3 L, RDW Std Deviation 43.3, RDW Coeff of Estrada 13.1, Plt Count 266, MPV 9.3, Immature Gran % (Auto) 0.500, Neut % (Auto) 60.0, Lymph % (Auto) 27.2, Sherman % (Auto) 9.0, Eos % (Auto) 2.8, Baso % (Auto) 0.5, Absolute Neuts (auto) 3.9, Absolute Lymphs (auto) 1.76, Nucleated RBC % 0 07/24/19 11:41: POC Glucose 270 H Current Medications Acetaminophen (Tylenol) 650 mg PO Q6H PRN PRN PRN Reason: Non-cardiac pain (4-10/10) Hydrocodone Bitart/Acetaminophen (Wing 5mg-325mg) 1 - 2 tablet PO Q4H PRN PRN PRN Reason: Pain Score 4-10/10 Last Admin: 07/24/19 11:02 Dose: 2 tablet Documented by: Al Hydroxide/Mg Hydroxide (Mylanta Ii) 15 - 30 ml PO Q4H PRN PRN PRN Reason: INDIGESTION Last Admin: 07/22/19 20:06 Dose: 30 ml Documented by: Albuterol Sulfate (Ventolin Aerosols) 2.5 mg INHALATION Q2H PRN PRN PRN Reason: dyspnea, wheezing Albuterol/Ipratropium (Duoneb) 3 ml INHALATION Q6HWA.RT [facility] Last Admin: 07/24/19 08:00 Dose: Not Given Documented by: Atorvastatin Calcium (Lipitor) 40 mg PO QHS [facility] Last Admin: 07/23/19 21:08 Dose: 40 mg Documented by: Diltiazem HCl (Cardizem Cd) 180 mg PO DAILY [facility] Last Admin: 07/24/19 09:41 Dose: 180 mg Documented by: Famotidine (Pepcid) 20 mg PO BID [facility] Last Admin: 07/24/19 09:39 Dose: 20 mg Documented by: Gabapentin (Neurontin) 600 mg PO TID [facility] Last Admin: 07/24/19 05:19 Dose: 600 mg Documented by: Glucagon () 1 mg IM .X1 PRN PRN Reason: Hypoglycemia Guaifenesin (Robitussin) 20 ml PO Q4H PRN PRN PRN Reason: COUGH Hydralazine HCl (Apresoline Iv) 10 mg IV Q4H PRN PRN PRN Reason: SBP > 160 Dextrose (Dextrose 10%-Water) 250 mls @ 999 mls/hr IV .Q16M PRN; Protocol PRN Reason: HYPOGLYCEMIA Ampicillin Sodium/Sulbactam (Sodium 3 gm/ Sodium Chloride) 112 mls @ 150 mls/hr IV Q6 [facility] Last Admin: 07/24/19 11:42 Dose: 150 mls/hr Documented by: Sodium Chloride () 250 mls @ 15 mls/hr IV .[id number] PRN PRN Reason: Saline Flush Sodium Chloride () 250 mls @ 15 mls/hr IV .[id number] PRN PRN Reason: Additional IVPB Infusion Insulin Glargine (Lantus (Bkc)) 30 units SC BID [facility] Last Admin: 07/24/19 09:38 Dose: 30 units Documented by: Insulin Human Lispro (Humalog Kwikpen (Bkc)) 5 unit SC TIDAC [facility] Last Admin: 07/24/19 11:43 Dose: 5 unit Documented by: Insulin Human Lispro (Humalog Kwikpen (Bkc)) 0 unit SC ACHS [facility]; Protocol Last Admin: 07/24/19 11:43 Dose: 4 units Documented by: Lisinopril (Zestril) 20 mg PO DAILY [facility] Last Admin: 07/24/19 09:42 Dose: 20 mg Documented by: Magnesium Hydroxide (Milk Of Magnesia) 30 ml PO DAILY PRN PRN Reason: Constipation Morphine Sulfate () 1 - 2 mg IV Q4H PRN PRN PRN Reason: Pain Score 1-10/10 Last Admin: 07/19/19 07:39 Dose: 2 mg Documented by: Multivitamins (Multivitamin) 1 tablet PO DAILY@1200 [facility] Last Admin: 07/24/19 11:43 Dose: 1 tablet Documented by: Nicotine (Nicoderm Cq (Pbkc)) 21 mg TRANSDERM. DAILY PRN PRN Reason: Nicotine Craving Nitroglycerin (Nitrostat) 0.4 mg SUBLINGUAL Q5M PRN PRN Reason: CARDIAC/CHEST PAIN Ondansetron HCl (Zofran) 4 mg IV Q8H PRN PRN PRN Reason: NAUSEA/VOMITING Pantoprazole Sodium (Protonix) 40 mg PO DAILY [facility] Last Admin: 07/24/19 09:41 Dose: 40 mg Documented by: Potassium Chloride (K-Dur) 20 meq PO TIDCM [facility] Last Admin: 07/24/19 11:43 Dose: 20 meq Documented by: Psyllium Hydrophilic Mucilloid (Metamucil) 1 packet PO DAILY PRN PRN PRN Reason: Constipation Senna/Docusate Sodium (Senokot-S, Donna-Colace) 2 tablet PO BID PRN PRN PRN Reason: Constipation Sodium Chloride () 10 - 40 ml IV UD PRN PRN Reason: SALINE FLUSH Last Admin: 07/20/19 05:47 Dose: 10 ml Documented by: Sodium Hypochlorite (Dakins Solution 0.25% (1/2 Strength)) 1 applic TOPICAL BID [facility]; Protocol Last Admin: 07/24/19 11:03 Dose: 1 applicatio Documented by: Temazepam (Restoril) 15 mg PO QHS PRN PRN PRN Reason: INSOMNIA Last Admin: 07/23/19 21:07 Dose: 15 mg Documented by: Throat Lozenges (Cepacol Sore Throat Lozenge) 1 lozenge MUCOUS MEM Q2H PRN PRN PRN Reason: Sore throat or cough STROKE Vital Signs/Narrative: Vital Signs Temp Pulse Resp BP Pulse Ox 07/24/19 09:30 97.9 F 82 16 132/85 H 96 Medical Necessity - Tobacco Use Smoking Status: Current every day smoker Tobacco Use: Cigarettes Assessment/Plan All Active Problems Screen for colon cancer (Acute) Diabetic foot infection (Acute) Gangrene of toe (Acute) Diabetic ulcer of right foot (Acute) Osteomyelitis (Acute) PVD (peripheral vascular disease) (Acute) Type 2 diabetes mellitus with diabetic polyneuropathy (Acute) 1. 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 Today is POD 6 * Patient has no complaints and feels well today. * Wound cultures positive for Klebsiella, staph epidermidis and strep agalactiae. * ID on board. Patient currently on Unasyn. * 2. Peripheral vascular disease * Vascular surgery Dr. Shah on board. * Patient known to have left SFA occlusion with previous bypass plans for patient to undergo angiogram. * Patient's Coumadin held and patient now on Lovenox. For angiogram tomorrow. WIll hold evening dose of lovenox. * Continue therapeutic Lovenox. * * 3. Type 2 diabetes mellitus * Complicated with polyneuropathy. A1c is 13.3. * On Lantus 30 units twice daily and insulin sliding scale. * Accu-Cheks AC at bedtime. * 4. Hyperlipidemia: On statin. 5. Hypertension: On lisinopril and Cardizem. 6. History of previous DVTs: * On anticoagulation with Coumadin but this was held as he is going to have angiogram. * Currently on therapeutic Lovenox. * To resume coumadin after angiogram 7. GERD: On famotidine. 8. COPD: On breathing treatments. DVT prophylaxis: On Lovenox. Code Visit Inpatient E&M: 91869 Subs Hosp L2
[2019-07-24] MEDS: Ipratropium/Albuterol Sulfate 3 ML AMPUL.NEB INHALATION ×2 (13:20→18:43)
[2019-07-24] MEDS: 0.9% Saline Lock 10 ML Syringe IV (14:28)
[2019-07-24 16:50] LABS: Bedside Glucose 198 mg/dL (70-110)
[2019-07-24] MEDS: Atorvastatin Calcium 40 MG Tablet PO (21:55)
[2019-07-24] MEDS: Temazepam 15 MG Capsule PO (22:03)
[2019-07-25] VITALS (11 sets, daily range): BP systolic 134–155; BP diastolic 69–89; PULSE 77–94; RESP 17–18; TEMP 36.3–37.1; O2SAT 93–98
[2019-07-25 00:35] LABS: Bedside Glucose 217 mg/dL (70-110)
[2019-07-25] MEDS: DAKIN'S SOL HALF STRENGTH (=0.25%) 1 APPLIC TOPICAL ×2 (00:38→13:38)
[2019-07-25] MEDS: 0.9% Saline Lock 10 ML Syringe IV ×2 (00:42→12:02)
[2019-07-25] MEDS: Gabapentin 600 MG Tablet PO ×2 (05:00→13:38)
[2019-07-25] MEDS: Ipratropium/Albuterol Sulfate 3 ML AMPUL.NEB INHALATION (06:46)
--- NOTE | 2019-07-25 08:19 | PCM.OPRPT ---
Problem List (1) Gangrene of toe Status: Acute (2) PVD (peripheral vascular disease) Status: Acute Report of Operation Date of Procedure: 07/25/19 Pre-Operative Diagnosis: Gangrene with nonhealing wound and severe PAD Post-Operative Diagnosis: Same Surgery/Procedure Performed:: 1. Ultrasound-guided access retrograde left common femoral artery. 2. Right lower extremity angiogram with catheter placed past the third order into the popliteal artery. 3. Balloon angioplasty of the SFA into the popliteal with a 4 mm and then a 5 mm balloon. 4. Balloon angioplasty mid SFA to proximal popliteal with a 5 x 150 drug-coated balloon. 5. Closure with Star close Type of Anesthesia:: Sedation,Conscious Description of Procedure: Patient brought to the [facility]. Underwent the appropriate timeout consent. Underwent sedation. Prepped and draped in a sterile fashion. We did ultrasound-guided access retrograde left common femoral artery. Gave 5000 units of heparin. Put in a 5 Brazilian sheath. We got up and over the bifurcation and brought catheter to the right external iliac artery. We did an angiogram from there showing moderate stenosis proximal SFA, mid through distal SFA into the popliteal artery was occluded. Large collaterals filling the popliteal down. Brought in a longer 6 Brazilian sheath and using a quick cross got through this occlusion. We imaged from there and it showed the popliteal had some mild to moderate stenosis but good flow through the rest of it. Runoff into the peroneal artery, with proximal anterior tibial and posterior tibial arteries occluded. We replaced the wire and then balloon through the occlusion with a 4 mm balloon with 3 different inflations. We then balloon from the mid SFA to the mid popliteal with a 5 x 200 balloon for over 3 minutes. We pulled the balloon back and balloon the rest of the SFA into the common femoral artery for over 3 minutes. The completion angiogram was markedly improved with brisk flow through this entire segment. No significant dissection or any flow-limiting stenosis. We then ballooned the area that had the occlusion with a 5 x 150 drug-coated balloon for over 2 minutes. Completion again was much improved with good flow. We then imaged below the knee and there is brisk flow down through the peroneal all the way to the ankle, with collateral flow to the DP and plantar vessels. We then removed the sheath and did a imaging of the left groin. We then deployed a Star close with good hemostasis. Sedation: This 68-year-old gentleman underwent moderate sedation with Dr. Gamal Shah. He was monitored EKG blood pressure and pulse ox for over the 30 minutes of the procedure. He tolerated the procedure well. See the EMR for the complete record. Brought to recovery in stable condition.
[2019-07-25 08:50] LABS: Bedside Glucose 140 mg/dL (70-110)
[2019-07-25] MEDS: Insulin Lispro 100 UNIT/ML INSULN.PEN SC ×3 (09:35→11:58)
[2019-07-25] MEDS: Pantoprazole Sodium 40 MG Tablet PO (09:37)
[2019-07-25] MEDS: Famotidine 20 MG Tablet PO (09:37)
[2019-07-25] MEDS: Lisinopril 20 MG Tablet PO (09:38)
[2019-07-25] MEDS: dilTIAZem CD 180 MG Capsule PO (09:40)
--- NOTE | 2019-07-25 11:01 | PCM.TXEXTCAR ---
- Diet 07/25/19 09:42 Diet: Calorie Controlled Is pt able to select menu?: Yes How many daily calories?: 1800 calorie - Routine Orders/Code Status Enema Type: Fleetz Enema Frequency: Daily PRN Suppository Type: Dulcolax 10mg Suppository Frequency: Daily PRN O2 Frequency: PRN Keep PO Greater than or Equal to (%): 90 Code Status: Full Code - Wound(s) right great toe Wound Type: Amputation Dressing Change: Dakins moistened gauze packing - Therapies Weight Bearing: Non weight bearing Physical Therapy: Eval and Treat Occupational Therapy: Eval and Treat - Allergies/Procedures Done in Hospital Allergies/Adverse Reactions: Allergies No Known Allergies Allergy (Verified 03/13/18 15:11) Procedures: Angiogram - Type of Care/Length of Stay Estimated LOS: Convalescent Care Less Than 30 days Type of Care Needed: Skilled Rehab Potential: Fair Prognosis: Fair - Additional Orders/Day of Discharge Additional Orders: Check INR every 2 days until INR is between 2-3. Coumadin dose to be adjusted as needed for target INR of 2-3 Day of Discharge: 07/25/19 - Dietary and Speech Recommendations Dietitian Recommendations/Changes: Rec diet Cardiac/Low Cholesterol: 2000 Calorie Controlled diet. Rec Renny 1 packet BID to promote wound healing. - Follow Up Care Primary Care Physician: Saurabh Hernandez Chi, MD [Primary Care Provider] - Please follow up with your Primary Care Physician in: ONE WEEK Please Follow Up With: Gamal Shah MD When: 1-2 WEEKS Please Follow Up With: John Johansen MD When: 2 WEEKS
--- NOTE | 2019-07-25 11:04 | PCM.DC.SUM ---
Discharge Date and Diagnosis Date of Admission: 07/17/19 Date of Discharge: 07/25/19 - Primary Discharge Diagnosis Active and Suspected Problems Diabetic foot infection (Acute) Gangrene of toe (Acute) Diabetic ulcer of right foot (Acute) Osteomyelitis (Acute) PVD (peripheral vascular disease) (Acute) Type 2 diabetes mellitus with diabetic polyneuropathy (Acute) - Secondary Discharge Diagnosis Chronic Problems Lumbar spinal stenosis (Chronic) Obstructive sleep apnea (Chronic) Scabies infestation (Chronic) DVT (deep venous thrombosis) (Chronic) Tobacco abuse (Chronic) GERD (gastroesophageal reflux disease) (Chronic) Neuropathy (Chronic) Hypertension (Chronic) COPD (chronic obstructive pulmonary disease) (Chronic) Peripheral vascular disease (Chronic) Hyperlipidemia (Chronic) Erectile dysfunction (Chronic) Diabetes mellitus (Chronic) IDDM (insulin dependent diabetes mellitus) (Chronic) Hospital Course and Treatment Imaging Results: Diagnostic Data Lower Extremity MRI 07/17/19 14:55 IMPRESSION: Subtle decreased signal on T1-weighted imaging within the distal phalanx of the great toe.. This demonstrates increased signal on T2-weighted images. In addition there is a linear area of low signal on the T1-weighted images through the great toe at the base of the tuft may represent a nondisplaced. There may be early osteomyelitis involving the tuft of the toe but poorly visualized on this study. Consider repeating the study with contrast for further evaluation if clinically indicated Edema is seen at the plantar surface of the foot at the level of the great toe. at 2100 Reported and signed by: Armida Caldera DO Electronically Signed: Armida Caldera MD at 20:59 EST Tel , Service support , Chest X-Ray 07/18/19 05:55 IMPRESSION: No acute cardiopulmonary process. Electronically Signed: Sky Daniels MD (Brooks) at 13:25 EST , Service support , Foot X-Ray 07/18/19 12:05 IMPRESSION: First toe amputation. Electronically Signed: Sky Daniels MD (Brooks) at 14:05 EST , Service support , Consultations 07/17/19 14:56 Consult: Onc/Wound/insurance job titles Routine Comment: podiatry- Dr Barney Infectious diseases- Dr Johansen vascular surgery- Dr Shah Operations: None, - - debridement of right foot and open hallux amputation Procedures: Angiogram Summary of Care Provided: The patient is a 68 year old M with an extensive past medical history as listed. He was admitted through the ED on 07/17/2019 with a complaint of right big toe infection. 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 He had been started on oral Keflex but symptoms were persistent. He had no assisted fever or chills but had severe pain in the right big toe with evidence of gangrene and cellulitis of the right foot. WBC was 11.4. He was admitted and managed for right big toe diabetic foot infection with suspected gangrene and cellulitis. He was started on IV vancomycin and Zosyn. Wound cultures were obtained and podiatry was consulted. A1c was checked and was 13.3 indicating very poor control of his diabetes. Infectious diseases was also consulted. Patient has a history of DVTs and had been on Coumadin. INR was 2.6 on admission and this was reversed with FFP's prior to him undergoing surgery. Antibiotics were narrowed down to IV Unasyn. Wound cultures were positive for Klebsiella, staph epidermidis and strep agalactiae. Vascular surgery was also consulted and he had vascular lab studies which showed that his right SFA was occluded. He did have a history of previous left SFA occlusion with a left leg bypass which was done at the [facility] 2007. Surgery planned right lower extremity angiogram with intervention on 07/25/2019. Coumadin was held and patient was put on therapeutic Lovenox in the interim. Patient had angiogram on 07/25/2019 with balloon angioplasty of the superficial femoral artery and balloon angioplasty of the mid superficial femoral artery to the proximal popliteal artery of the right lower extremity. Patient remained stable after procedure and per vascular surgery, Coumadin could be resumed. INR on day of discharge was 1.1. Patient was given Coumadin 10 mg prior to discharge on 07/25/2019. He was discharged to his [facility] on 07/25/2019. He was put on his insulin dose of 60 units daily which is what he was supposed to be on on outpatient basis. Per discussion with ID, he was discharged on p.o. Augmentin 875 mg twice daily for the next 4 weeks. He is to follow-up with his primary care doctor, vascular surgery, podiatry and infectious disease. Patient counseled to be compliant with his diabetes medication. Patient seen and examined prior to discharge. He had no complaints. Review of systems otherwise negative. Labs and vitals reviewed. Home medication reviewed and reconciled. o/e: Vital Signs Height 5 ft 11 in Weight: 215 lb 9.793 oz Weight in Pounds 215.6 lbs Pulse Ox 98 Temperature 98.6 F Pulse Rate 94 Respiratory Rate 18 Blood Pressure 153/82 Blood Pressure Position Semi-Fowlers [] General: Alert, Oriented x3, Cooperative, No apparent distress HEENT: Atraumatic, PERRLA, EOMI, Normocephalic Oral: Moist Mucosa Neck: Supple, No JVD, Negative Carotid Bruits Lungs: Clear to auscultation, Normal air movement, No rhonchi, No wheeze, No rales Cardiovascular: Regular rate, Regular Rhythm, Normal S1, Normal S2, No murmurs Abdomen: Bowel Sounds Present, Soft, Non Tender, Non-Distended, No Hepato-splenomegaly Extremities: No edema, Capillary Refill Less than 3 Seconds Skin: No rashes, No breakdown Musculoskeletal: - - both LEs wrapped in SELMA bandage,. Lymphatic: No Cervical, Supraclavicular, or Inguinal Adenopathy Neurological: Cranial nerves II-XII grossly intact, Neuro grossly intact, Motor Exam 5/5 strength throughout Psych/Mental Status: Normal Affect, Appropriate, Alert and oriented to time, place, person, mood and affect Plan as above. For periodic INR checks every 2 days until INR is within 2-3, the therapeutic range. He received 10 g of Coumadin on day of discharge and is to continue with his regular 8 mg of Coumadin every day for target INR of 2-3. Patient is to follow up with Dr Carson (framing mill operator) after discharge for management of poorly controlled diabetes. - Physical Exam Vitals/I&O's: Vital Signs Temp Pulse Resp BP Pulse Ox 98.7 F 91 18 139/73 H 98 07/25/19 10:15 07/25/19 10:15 07/25/19 10:15 07/25/19 10:15 07/25/19 10:15 Oxygen Flow Rate (L/min) 1 Oxygen Delivery Method Room Air Weight: 215 lb 9.793 oz Body Mass Index (BMI) 30.0 Finger Stick Blood Glucose 239 Intake and Output for Last 24 Hours 07/23/19 07/24/19 07/25/19 23:59 23:59 23:59 Intake Total 1860 / 1860 1836.75 / 2336.75 724 / 724 Output Total 3375 / 3375 2050 / 3625 2150 / 2150 Balance -1515 / -1515 -213.25 / -1288.25 -1426 / -1426 Microbiology Past 72 Hours 07/18/19 12:20 Bone - Right Foot Gram Stain - Final 07/18/19 12:20 Bone - Right Foot Wound Culture - Final Klebsiella pneumoniae sp pneum Staphylococcus aureus Streptococcus agalactiae (B) Enterococcus faecalis Staphylococcus epidermidis 07/18/19 12:20 Bone - Right Foot Anaerobic Culture - Final Bacteroides thetaiotaomicron Anaerobic cocci 07/17/19 20:20 Wound - Toe Gram Stain - Final 07/17/19 20:20 Wound - Toe Wound Culture - Final Klebsiella pneumoniae sp pneum Staphylococcus epidermidis Streptococcus agalactiae (B) 07/17/19 20:20 Wound - Toe Anaerobic Culture - Final Anaerobic cocci 07/18/19 12:20 Bone - Right Foot Gram Stain - Final 07/18/19 12:20 Bone - Right Foot Wound Culture - Final No growth aerobically. 07/18/19 12:20 Bone - Right Foot Anaerobic Culture - Final No growth in 5 days. Laboratory Results 07/24/19 11:41: POC Glucose 270 H 07/24/19 16:26: POC Glucose 198 H 07/24/19 22:11: POC Glucose 217 H 07/25/19 08:36: POC Glucose 140 H Current Medications Acetaminophen (Tylenol) 650 mg PO Q6H PRN PRN PRN Reason: Non-cardiac pain (4-04/26) Hydrocodone Bitart/Acetaminophen ([place] 5mg-325mg) 1 - 2 tablet PO Q4H PRN PRN PRN Reason: Pain Score 4-10/10 Last Admin: 07/24/19 21:52 Dose: 2 tablet Documented by: Al Hydroxide/Mg Hydroxide (Mylanta Ii) 15 - 30 ml PO Q4H PRN PRN PRN Reason: INDIGESTION Last Admin: 07/22/19 20:06 Dose: 30 ml Documented by: Albuterol Sulfate (Ventolin Aerosols) 2.5 mg INHALATION Q2H PRN PRN PRN Reason: dyspnea, wheezing Albuterol/Ipratropium (Duoneb) 3 ml INHALATION Q6HWA.RT [facility] Last Admin: 07/25/19 06:46 Dose: 3 ml Documented by: Atorvastatin Calcium (Lipitor) 40 mg PO QHS [facility] Last Admin: 07/24/19 21:55 Dose: 40 mg Documented by: Clopidogrel Bisulfate (Plavix) 75 mg PO DAILY [facility] Diltiazem HCl (Cardizem Cd) 180 mg PO DAILY [facility] Last Admin: 07/25/19 09:40 Dose: 180 mg Documented by: Famotidine (Pepcid) 20 mg PO BID [facility] Last Admin: 07/25/19 09:37 Dose: 20 mg Documented by: Gabapentin (Neurontin) 600 mg PO TID [facility] Last Admin: 07/25/19 05:00 Dose: 600 mg Documented by: Glucagon () 1 mg IM .X1 PRN PRN Reason: Hypoglycemia Guaifenesin (Robitussin) 20 ml PO Q4H PRN PRN PRN Reason: COUGH Hydralazine HCl (Apresoline Iv) 10 mg IV Q4H PRN PRN PRN Reason: SBP > 160 Dextrose (Dextrose 10%-Water) 250 mls @ 999 mls/hr IV .Q16M PRN; Protocol PRN Reason: HYPOGLYCEMIA Ampicillin Sodium/Sulbactam (Sodium 3 gm/ Sodium Chloride) 112 mls @ 150 mls/hr IV Q6 [facility] Last Infusion: 07/25/19 05:45 Dose: Infused Documented by: Sodium Chloride () 250 mls @ 15 mls/hr IV .[id number] PRN PRN Reason: Saline Flush Sodium Chloride () 250 mls @ 15 mls/hr IV .[id number] PRN PRN Reason: Additional IVPB Infusion Last Infusion: 07/24/19 17:46 Dose: 100 mls/hr Documented by: Insulin Glargine (Lantus (Bk)) 30 units SC BID [facility] Last Admin: 07/25/19 09:38 Dose: 30 units Documented by: Insulin Human Lispro (Humalog Kwikpen (Bk)) 5 unit SC TIDAC [facility] Last Admin: 07/25/19 09:35 Dose: 5 unit Documented by: Insulin Human Lispro (Humalog Kwikpen (Bk)) 0 unit SC ACHS [facility]; Protocol Last Admin: 07/25/19 09:36 Dose: Not Given Documented by: Lisinopril (Zestril) 20 mg PO DAILY [facility] Last Admin: 07/25/19 09:38 Dose: 20 mg Documented by: Magnesium Hydroxide (Milk Of Magnesia) 30 ml PO DAILY PRN PRN Reason: Constipation Morphine Sulfate () 1 - 2 mg IV Q4H PRN PRN PRN Reason: Pain Score 1-10/10 Last Admin: 07/19/19 07:39 Dose: 2 mg Documented by: Multivitamins (Multivitamin) 1 tablet PO DAILY@1200 [facility] Last Admin: 07/24/19 11:43 Dose: 1 tablet Documented by: Nicotine (Nicoderm Cq (Pbkc)) 21 mg TRANSDERM. DAILY PRN PRN Reason: Nicotine Craving Nitroglycerin (Nitrostat) 0.4 mg SUBLINGUAL Q5M PRN PRN Reason: CARDIAC/CHEST PAIN Ondansetron HCl (Zofran) 4 mg IV Q8H PRN PRN PRN Reason: NAUSEA/VOMITING Pantoprazole Sodium (Protonix) 40 mg PO DAILY [facility] Last Admin: 07/25/19 09:37 Dose: 40 mg Documented by: Potassium Chloride (K-Dur) 20 meq PO TIDCM [facility] Last Admin: 07/25/19 09:37 Dose: 20 meq Documented by: Psyllium Hydrophilic Mucilloid (Metamucil) 1 packet PO DAILY PRN PRN PRN Reason: Constipation Senna/Docusate Sodium (Senokot-S, Donna-Colace) 2 tablet PO BID PRN PRN PRN Reason: Constipation Sodium Chloride () 10 - 40 ml IV UD PRN PRN Reason: SALINE FLUSH Last Admin: 07/25/19 00:42 Dose: 10 ml Documented by: Sodium Hypochlorite (Dakins Solution 0.25% (1/2 Strength)) 1 applic TOPICAL BID [facility]; Protocol Last Admin: 07/25/19 00:38 Dose: 1 applicatio Documented by: Temazepam (Restoril) 15 mg PO QHS PRN PRN PRN Reason: INSOMNIA Last Admin: 07/24/19 22:03 Dose: 15 mg Documented by: Throat Lozenges (Cepacol Sore Throat Lozenge) 1 lozenge MUCOUS MEM Q2H PRN PRN PRN Reason: Sore throat or cough Discharge Diet: 1800 Calorie Control Diet Discharge Activity: Return to Normal Activity Weight Bearing Status: Weight bearing as tolerated Call your doctor if you observe: Fever of 101 or Higher, Numbness or Tingling, Uncontrolled pain Home Medications: Medications to take at Discharge Diltiazem 180 mg PO DAILY 09/26/13 Gabapentin [Neurontin] 600 mg PO TID 09/26/13 Warfarin [Coumadin] 8 mg PO DAILY@1700 11/06/15 Zolpidem Tartrate [Ambien] 10 mg PO QHS 11/06/15 Atorvastatin Calcium [Lipitor] 40 mg PO DAILY 03/13/18 Lisinopril [Zestril] 20 mg PO DAILY 03/13/18 Omeprazole [Prilosec] 40 mg PO DAILY 03/13/18 Multivitamin [Daily Multiple Vitamin] 1 ea PO DAILY 07/17/19 Potassium Chloride [Klor-Con 10] 20 meq PO TID 07/17/19 Roflumilast [Daliresp] 500 mcg PO DAILY 07/17/19 Amox/Clavulanate Tablet [Augmentin Tablet] 875 mg PO Q12H 28 Days #56 tab 07/25/19 Clopidogrel Bisulfate [Plavix] 75 mg PO DAILY #30 tab 07/25/19 Insulin Degludec/Liraglutide [Xultophy 100 Unit-3.6MG/ml Pen] 50 iu SQ DAILY #2 pen 07/25/19 Following Prescrptions Were Given to Patient: Amox/Clavulanate Tablet [Augmentin Tablet] 875 mg PO Q12H 28 Days #56 tab Prescription Printed Clopidogrel Bisulfate [Plavix] 75 mg PO DAILY #30 tab Prescription Printed Primary Care Physician: Saurabh Hernandez Chi, MD [Primary Care Provider] - Please follow up with your Primary Care Physician in: ONE WEEK Please Follow Up With: Gamal Shah MD When: 1-2 WEEKS Please Follow Up With: John Johansen MD When: 2 WEEKS Disposition: [facility] facility Minutes spent on discharge:: 50 Patient Condition:: Stable Medical Necessity - Tobacco Use Smoking Status: Current every day smoker Tobacco Use: Cigarettes Meaningful Use Info Meaningful Use Diagnoses (Choose all that apply): None applicable Code Visit Inpatient E&M: 51263 Disch Hosp
--- NOTE | 2019-07-25 11:34 | CASEMGMT ---
Patient is ready for discharge. KALANI Faxed orders to [facility]. KALANI spoke with patient and his cousin will be transporting him. He is on bed rest until 240p. KALANI notified RN patient is okay to go whenever his bedrest is up. KALANI also left a message for Macrina at [facility] letting her know about bedrest and d/c. Convalescent was completed on . Plan: patient d/c to [facility] under skilled level of care on a convalescent stay. Patient's cousin transported him via private vehicle. Ashlyn ROBERTS NOUGAT CUTTER MACHINE
[2019-07-25] MEDS: Multivitamins,Therapeutic Tablet 1 TABLET PO (11:59)
[2019-07-25] MEDS: HYDROcodone Bitartrate/Apap 5/325 Tablet PO (12:02)
[2019-07-25 12:06] LABS: Bedside Glucose 196 mg/dL (70-110)
[2019-07-25 12:38] LABS: International Normalized Ratio 1.1; Prothrombin Time (Protime)PT. 14.3 SECONDS (11.7-14.9)
--- NOTE | 2019-07-25 14:01 | NURSING ---
Pt complete bed rest with angiogram post recovery he was able to stand at the bedside. Dressing removed and tape intact. No swelling of area noted and distal pulse to left leg intact.
--- NOTE | 2019-07-25 14:03 | NURSING ---
In to change the dressing to the right foot and patient states that nursing had just changed the dressing because patient is going to be discharged to the detention today. called to clarify with Dr Lozano to see if wound VAC should be applied at the detention tomorrow. awaiting call back.
--- NOTE | 2019-07-25 14:43 | NURSING ---
Called and talked with KALANI Goldberg to let her know that Dr Lozano would like [facility] to place the wound VAC to the right hallux amputation site tomorrow. Also, pt is to follow up with Dr Lozano in a week. half-way papers had already been printed, so the charge nurse will add the appt with Dr Lozano to the paperwork prior to discharge.
--- NOTE | 2019-07-25 14:45 | CASEMGMT ---
Wound RN spoke with Dr Lozano and he would like a wound vac placed tomorrow. She put the order in the computer and SW faxed it as well as put it in the packet. KALANI also called Macrina at [facility] letting her know this information. KALANI also wrote on the d/c instructions to follow up with Dr Lozano in 1 week. Ashlyn ROBERTS MSW
== END 2019-07-25 16:14 | disposition skilled nursing facility (03) | DRG 253 ==
PROVIDERS: Hospitalist; Internal Medicine; Physician Assistant; Podiatrist; Admitting Provider Family Medicine; Family Provider Family Medicine Geriatric Medicine; PCP Family Medicine Geriatric Medicine; Visit Provider Student in an Organized Health Care Education/Training Program
PROC: 0Y6P0Z0 Detachment at Right 1st Toe, Complete, Open Approach (ICD-10-PCS; principal; 2019-07-18 10:00)
DX: E11.52 Type 2 diabetes mellitus with diabetic peripheral angiopathy with gangrene (principal); I96 Gangrene, not elsewhere classified; M86.8X7 Other osteomyelitis, ankle and foot; E78.5 Hyperlipidemia, unspecified; I10 Essential (primary) hypertension; F17.210 Nicotine dependence, cigarettes, uncomplicated; E11.628 Type 2 diabetes mellitus with other skin complications; E11.65 Type 2 diabetes mellitus with hyperglycemia; L03.031 Cellulitis of right toe; E11.42 Type 2 diabetes mellitus with diabetic polyneuropathy; J44.9 Chronic obstructive pulmonary disease, unspecified; B95.61 Methicillin susceptible Staphylococcus aureus infection as the cause of diseases classified elsewhere; B95.2 Enterococcus as the cause of diseases classified elsewhere; B95.1 Streptococcus, group B, as the cause of diseases classified elsewhere; B95.7 Other staphylococcus as the cause of diseases classified elsewhere; E11.621 Type 2 diabetes mellitus with foot ulcer; G47.33 Obstructive sleep apnea (adult) (pediatric); K21.9 Gastro-esophageal reflux disease without esophagitis; M48.061 Spinal stenosis, lumbar region without neurogenic claudication; E11.69 Type 2 diabetes mellitus with other specified complication; L97.519 Non-pressure chronic ulcer of other part of right foot with unspecified severity; B96.1 Klebsiella pneumoniae [K. pneumoniae] as the cause of diseases classified elsewhere; Z79.01 Long term (current) use of 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s; Z79.4 Long term (current) use of insulin; Z86.718 Personal history of other venous thrombosis and embolism
CPT/HCPCS: 36245; 36415; 37224; 71045; 73630; 73718; 75710; 76937; 80048; 80053; 80202; 82947; 82962; 83036; 83735; 85025; 85610; 85652; 85730; 86140; 86900; 86901; 87015; 87070; 87075; 87076; 87077; 87102; 87106; 87116; 87186; 87205; 87206; 87640; 88304; 88305; 88311; 93005; 93923; 93926; 94640; 96374; 97110; 97116; 97162; 97166; 97530; 97535; 99152; 99153; 99251; 99283; 99406; J7030; J7040; J7050; J7120; P9017; Q9967; A4216; C1725; C1760; C1769; C1887; C1894; G0463; J0295

== ENCOUNTER → 2019-08-15 13:18 | Outpatient (CLI) | payer MEDICARE, SELFPAY ==
[2019-08-09 09:13] VITALS: BMI 29.8
[2019-08-15 17:07] LABS: Absolute Lymphocyte Count 2.51 X10^3/uL (0.83-4.51); Absolute Neutrophil Count 4.3 X10^3/uL (2.0-7.7); Basophil# 0.04 X10^3/uL; Basophil% 0.5 % (0-1); Eosinophil# 0.11 X10^3/uL; Eosinophils% 1.4 % (0-5); Hematocrit 39.1 % (40-54); Hemoglobin 12.6 g/dL (13.0-16.5); Lymphocyte # 2.51 X10^3/ul (4.0); Mean Corp Hgb Conc 32.2 g/dL (32-36); Mean Corpuscular Volume 90.1 fL (80-94); Mean Platelet Vol. 9.6 fl (6.2-12.0); Monocyte# 0.57 X10^3/uL; Monocyte% 7.5 % (0-10); NRBC Flagged by Analyzer 0 % (0-5); Neutrophil # 4.34 X10^3/uL (2.7-7.7); Neutrophil % 57.2 % (47-70); Platelet Count 285 K/mm3 (150-450); RBC Distribution Width CV 13.3 % (11.6-14.6); Red Blood Count 4.34 M/mm3 (4.6-6.2); White Blood Count 7.6 K/mm3 (4.4-11.0)
[2019-08-15 17:30] LABS: Vitamin D,25 Hydroxy 11.7 ng/mL (29.95-100.01)
[2019-08-15 17:35] LABS: ALB/GLOB Ratio 0.8 RATIO (0.9-2.4); AST(SGOT) 21 U/L (15-37); Alanine Aminotransfer ALT/SGPT 45 U/L (16-61); Albumin, Serum 3.8 g/dL (3.2-5.0); Alkaline Phosphatase 136 U/L (45-117); Anion Gap 6 (5-15); BUN 11 mg/dL (7-18); BUN/Creat Ratio 12.9 RATIO (10-20); Calcium,Total 8.7 mg/dL (8.5-10.1); Chloride 103 mmol/L (98-107); Cholesterol 151 mg/dL (200); Creatinine, Serum 0.85 mg/dL (0.70-1.30); EST Glomerular Filtration Rate 95 mL/min (>60); Est Glom Filt Rate - Afr Amer 115 mL/min (>60); Globulin 4.5 g/dL (2.2-4.2); Glucose 267 mg/dL (74-106); High Density Lipoprotein 42 mg/dL; Potassium 3.8 mmol/L (3.5-5.1); Protein, Total 8.3 g/dL (6.4-8.2); Sodium Level 134 mmol/L (136-145); Thyroid Stim Hormone (TSH) 1.14 uIU/mL (0.358-3.74); Triglycerides 128 mg/dL; Very Low Density Lipoprotein 26 mg/dL (5-40)
== END ==
PROVIDERS: PCP Family Medicine Geriatric Medicine; Visit Provider Family Medicine Geriatric Medicine
DX: I10 Essential (primary) hypertension (principal); E11.9 Type 2 diabetes mellitus without complications; E55.9 Vitamin D deficiency, unspecified; E78.5 Hyperlipidemia, unspecified; F52.8 Other sexual dysfunction not due to a substance or known physiological condition
CPT/HCPCS: 36415; 80053; 80061; 82306; 84403; 84443; 85025

== ENCOUNTER 2019-08-17 12:00 | Outpatient (RCR) | payer MEDICARE, SELFPAY ==
[2019-08-02 10:36] VITALS: BP 97/55; PULSE 69; RESP 18; TEMP 36.6; BMI 29.8
--- NOTE | 2019-08-02 12:00 | HP.PCM_ITS ---
(1) Ulcer of right foot with fat layer exposed Status: Acute Current Visit: Yes Code(s): L97.512 - Non-pressure chronic ulcer of other part of right foot with fat layer exposed (2) Type 2 diabetes mellitus with diabetic polyneuropathy Status: Acute Current Visit: Yes Code(s): E11.42 - Type 2 diabetes mellitus with diabetic polyneuropathy (3) PVD (peripheral vascular disease) Status: Acute Current Visit: Yes Code(s): I73.9 - Peripheral vascular disease, unspecified (4) Tobacco abuse Status: Chronic Current Visit: No Code(s): Z72.0 - Tobacco use History of Present Illness Date of Service: 08/02/19 Chief Complaint: Ulcer right foot History of Wound: This patient presents to the wound healing center today for follow-up of ulcer to right foot with area of open surgical site. Patient is status post debridement of all nonviable, infected, necrotic soft tissue and bone of the right foot with open right hallux amputation performed on 07/18/2019. Patient also had a vascular procedure performed by Dr. Shah to try and reestablish better blood flow to the lower extremity. Following patient's discharge from the hospital [facility] where he has had a wound VAC applied to the area that is to be changed 3 times a week. Patient currently feels well. Patient denies any feelings of nausea, vomiting, fever, chills. Past Medical History Past Medical History: Chronic Problems Lumbar spinal stenosis (Chronic) Obstructive sleep apnea (Chronic) Scabies infestation (Chronic) DVT (deep venous thrombosis) (Chronic) Tobacco abuse (Chronic) GERD (gastroesophageal reflux disease) (Chronic) Neuropathy (Chronic) Hypertension (Chronic) COPD (chronic obstructive pulmonary disease) (Chronic) Peripheral vascular disease (Chronic) Hyperlipidemia (Chronic) Erectile dysfunction (Chronic) Diabetes mellitus (Chronic) IDDM (insulin dependent diabetes mellitus) (Chronic) Surgical History: - - Lumbar laminectomy and fusion x 2, LLE surgery for clot retrieval with follow-up I&D x2 for infection. Allergies/Adverse Reactions: Allergies No Known Allergies Allergy (Verified 03/13/18 15:11) Home Medications: Ambulatory Orders Medication Instructions Recorded Diltiazem 180 mg PO DAILY 09/26/13 Gabapentin [Neurontin] 600 mg PO TID 09/26/13 Warfarin [Coumadin] 8 mg PO DAILY@1700 11/06/15 Zolpidem Tartrate [Ambien] 10 mg PO QHS 11/06/15 Atorvastatin Calcium [Lipitor] 40 mg PO DAILY 03/13/18 Lisinopril [Zestril] 20 mg PO DAILY 03/13/18 Omeprazole [Prilosec] 40 mg PO DAILY 03/13/18 Multivitamin [Daily Multiple 1 ea PO DAILY 07/17/19 Vitamin] Potassium Chloride [Klor-Con 10] 20 meq PO TID 07/17/19 Roflumilast [Daliresp] 500 mcg PO DAILY 07/17/19 Amox/Clavulanate Tablet [Augmentin 875 mg PO Q12H 28 Days #56 tab 07/25/19 Tablet] Clopidogrel Bisulfate [Plavix] 75 mg PO DAILY #30 tab 07/25/19 Insulin Degludec/Liraglutide 50 iu SQ DAILY #2 pen 07/25/19 [Xultophy 100 Unit-3.6MG/ml Pen] - Family History Paternal Diabetes Maternal Diabetes, Heart Disease, Hypertension, - - History of brain aneurysms. Smoking Status: Current every day smoker Review of Systems Constitutional: Denies: Chills, Fever, Weight Change HEENT: Denies: Difficulty Hearing, Difficulty Swallowing, Sinus Congestion Cardiovascular: Denies: Chest Pain, Palpitations Respiratory: Denies: Cough Gastrointestinal: Denies: Diarrhea, Nausea, Vomiting Skin: Reports: - - Ulcer right foot - Physical Exam Vital Signs Temp Pulse Resp BP 97.8 F 69 18 97/55 L 08/02/19 10:36 08/02/19 10:36 08/02/19 10:36 08/02/19 10:36 General: Alert, Oriented x3, Cooperative, No apparent distress Extremities: No cyanosis, Capillary Refill Less than 3 Seconds, No Calf Tenderness - Negative Jarett and Warren signs bilateral, Diminished Peripheral Pulses Skin: Ulcer/ Wound - Ulcer to right foot and area of open surgical site. Bone can be visualized through the patient's open surgical site to first met head. The base is a majority of granular tissue along with areas of adherent slough, fibrin, devitalized subcutaneous tissue. There is no malodor and no purulence noted. No other signs of local infection appreciated today. Wound Measurements and Assessment WC - Nurse 1 - General Ulcer Measurement Start: 08/02/19 10:17 Freq: Status: Active Protocol: Activity Type Activity Date Activity User E-Sign Co-Sign Detail Recorded Client Recorded Date Recorded By Document 08/02/19 10:36 [id number] 08/02/19 10:41 CS 08/02/19 10:36 Wound Center Nurse 1 [Ulcer Assessment] #1 Right great toe amputation -Combined with other wound No -Current Size (cm) - Length 2.6 -Current Size (cm) - Width 5.2 -Current Size (cm) - Depth 1.3 -Total Square Cm 13.52 -Date of Last Picture (Recall this 08/02/19 field) -Photo Taken Yes -Epithelialization None Present -Tunneling No -Undermining/Tunneling No -Circular Undermining No -Exudate Amt Medium -Exudate Type Serosanguineous -Wound Margin Distinct, Outline Attached -Granulation Amt Small (1-33%) -Granulation Quality Pale,[place] -Slough/Fibrin Yes -Necrosis Amt None Present (0 %) -Necrotic Tissue Type Adherent Slough -Texture (Donna-wound Skin Appearance) No Abnormality, Assessed -Moisture (Donna-wound Skin Appearance Maceration ) -Color (Donna-wound Skin Appearance) Erythema -Temperature (Donna-wound Skin No Abnormality Appearance) (Pt Warm) -Tenderness on Palpation (Donna-wound No Skin Appearance) -Ulcer Cleansing Rinsed/ Irrigated with Saline -Foul Odor after Cleansing No -Anesthetic Used 4% Lidocaine Solution [Edema Assessment] -Lower Limb Edema Present No -Right Calf (cm) 34.5 -Right Ankle (cm) 21.5 -Left Calf (cm) 33 -Left Ankle (cm) 18.7 WC - Nurse 2 - General Ulcer CM Notes Start: 08/02/19 10:17 Freq: Status: Active Protocol: Activity Type Activity Date Activity User E-Sign Co-Sign Detail Recorded Client Recorded Date Recorded By Document 08/02/19 11:36 DV [id number] 08/02/19 11:46 DV 08/02/19 11:36 Wound Center Nurse 2 [Procedure/Treatment] #1 Right great toe amputation -Time 11:37 -Correct Patient Yes -Correct Side, Site, Position Yes -Correct Procedure Yes -Procedure Performed Yes -Type of Procedure Debridement -Clinical Debridement Subcutaneous -Post Debridement Size (cm) - Length 1 -Post Debridement Size (cm) - Width 2.8 -Post Debridement Size (cm) - Depth 1.9 -Total Square Cm 2.8 -Wound/Ulcer Outcome Not Healed -Ulcer Cleansing Rinsed/ Irrigated with Saline -Foul Odor after Cleansing No -Bioengineered Tissue No -Bleeding Controlled with Pressure -Offloading No -Treatment Response Procedure Tolerated Well [See Physician Procedure note for Specifics] Pain Scale: 0-10 Numeric [Pain] -Is Patient Pain Free? Yes Musculoskeletal: Tenderness - Some very minor tenderness with manipulation of surgical site, - - Right hallux is amputated Neurological: - - Epicritic sensation grossly absent to the bilateral lower extremities consistent with patient's diabetic status Psych/Mental Status: Normal Affect, Appropriate Debridement Note Post-Debridement Measurements/Treatment WC - Nurse 2 - General Ulcer CM Notes Start: 08/02/19 10:17 Freq: Status: Active Protocol: Activity Type Activity Date Activity User E-Sign Co-Sign Detail Recorded Client Recorded Date Recorded By Document 08/02/19 11:36 DV [id number] 08/02/19 11:46 DV 08/02/19 11:36 Wound Center Nurse 2 #1 Right great toe amputation -Time 11:37 -Correct Patient Yes -Correct Side, Site, Position Yes -Correct Procedure Yes -Procedure Performed Yes -Type of Procedure Debridement -Clinical Debridement Subcutaneous -Post Debridement Size (cm) - Length 1 -Post Debridement Size (cm) - Width 2.8 -Post Debridement Size (cm) - Depth 1.9 -Total Square Cm 2.8 -Wound/Ulcer Outcome Not Healed -Ulcer Cleansing Rinsed/ Irrigated with Saline -Foul Odor after Cleansing No -Bioengineered Tissue No -Bleeding Controlled with Pressure -Offloading No -Treatment Response Procedure Tolerated Well Pain Scale: 0-10 Numeric Is Patient Pain Free? Yes Wound debrided: Right distal foot Laterality: Right Type of Debridement: Excisional debridement Anesthesia Used: 4% Lidocaine Solution Depth: in the subcutaneous layer Percentage of wound debrided: 100 Instrument Used: 5mm curette, #15 blade Tissue Removed: Adherent slough, fibrin, devitalized cutaneous tissue Severity: Fat Layer Exposed Amount of bleeding with debridement: Mild Bleeding Controlled with: Pressure Patient tolerated procedure well Assessment/Plan Active Problems Ulcer of right foot with fat layer exposed (Acute) Type 2 diabetes mellitus with diabetic polyneuropathy (Acute) PVD (peripheral vascular disease) (Acute) Assessment: As noted above Plan: Patient was carefully examined and evaluated again today in detail. Patient is status post debridement of all necrotic, nonviable, infected soft tissue and bone of the right foot with open right hallux amputation. Procedure was performed July 18, 2019. Patient currently [facility] a [facility] where he has his wound VAC changed 3 times a week. The site was carefully evaluated in detail today. A subcutaneous debridement was then performed as noted in the clinical panel. Once complete the site looks good with a good majority of granular tissue and no signs of infection appreciated today. Small amount of bone to the right first metatarsal head still able to be visualized through the surgical site. A wet-to-dry dressing was then applied. Patient is to have his wound VAC reapplied as soon as he returns to the penitentiary facility. This is to continue to be changed 3 times a week. Patient was instructed to keep the area offloaded at all times and to make sure there are no areas of pressure being applied to any part of his foot. Patient is to not have any compressive dressing applied. Patient is to continue to be nonweightbearing to the right foot. If he needs to move a very short distance or to transfer, he is able to do this with only heel weightbearing to the right side. I recommend a diet high in protein to help optimize ulcer healing potential. Continue to advise the patient on smoking cessation. Patient says it is been approximately 2 weeks since his last cigarette. Patient was educated on all signs and symptoms of local and systemic infection needs to go to emergency room immediately should he notice any of these. All questions were answered to his satisfaction. Patient will follow back up at the wound healing center in 1 week to check on progress, or sooner if needed before then.
[2019-08-09 09:13] VITALS: BP 122/70; PULSE 103; RESP 20; TEMP 36.5; BMI 29.8
--- NOTE | 2019-08-09 11:43 | PCM.WC.PN ---
(1) Ulcer of right foot with fat layer exposed Status: Acute Current Visit: Yes Code(s): L97.512 - Non-pressure chronic ulcer of other part of right foot with fat layer exposed (2) Type 2 diabetes mellitus with diabetic polyneuropathy Status: Acute Current Visit: Yes Code(s): E11.42 - Type 2 diabetes mellitus with diabetic polyneuropathy (3) PVD (peripheral vascular disease) Status: Acute Current Visit: Yes Code(s): I73.9 - Peripheral vascular disease, unspecified (4) Tobacco abuse Status: Chronic Current Visit: No Code(s): Z72.0 - Tobacco use Type of Wound Date of Service: 08/09/19 Chief Complaint: Ulcer right foot History of Wound: This patient presents to the wound healing center today for follow-up of ulcer to right foot with area of open surgical site. Patient is status post debridement of all nonviable, infected, necrotic soft tissue and bone of the right foot with open right hallux amputation performed on 07/18/2019. Patient also had a vascular procedure performed by Dr. Shah to try and reestablish better blood flow to the lower extremity. Following patient's discharge from the hospital he is been at a assisted facility where he has had a wound VAC applied to the area that is to be changed 3 times a week. Patient currently feels well. Patient denies any feelings of nausea, vomiting, fever, chills. Progress of Wound: Ulcer shows some improvement today. Some surrounding maceration noted. Patient denies any feelings of nausea, vomiting, fever, chills. - Physical Exam Vital Signs Temp Pulse Resp BP 97.7 F L 103 H 20 H 122/70 H 08/09/19 09:13 08/09/19 09:13 08/09/19 09:13 08/09/19 09:13 General: Alert, Oriented x3, Cooperative, No apparent distress Extremities: No cyanosis, Capillary Refill Less than 3 Seconds, No Calf Tenderness - Negative Jarett and Warren signs bilateral, Diminished Peripheral Pulses Skin: Ulcer/ Wound - Ulcer to right foot and area of open surgical site. Very small amount of bone from the first met head can be visualized today as the ulcer site gradually continues to fill in. The base is a majority of granular tissue along with areas of adherent slough, fibrin, devitalized subcutaneous tissue. There is no malodor and no purulence noted. No other signs of local infection appreciated today. There is some surrounding maceration to this site. Wound Measurements and Assessment - Nurse 1 - General Ulcer Measurement Start: 08/02/19 10:17 Freq: Status: Active Protocol: Activity Type Activity Date Activity User E-Sign Co-Sign Detail Recorded Client Recorded Date Recorded By Document 08/09/19 09:13 CS [id number] 08/09/19 09:20 CS 08/09/19 09:13 Wound Center Nurse 1 [Ulcer Assessment] #1 Right great toe amputation -Combined with other wound No -Current Size (cm) - Length 1 -Current Size (cm) - Width 4.4 -Current Size (cm) - Depth 0.6 -Total Square Cm 4.4 -Photo Taken No -Epithelialization None Present -Tunneling No -Undermining/Tunneling No -Circular Undermining No -Exudate Amt Medium -Exudate Type Serosanguineous -Wound Margin Distinct, Outline Attached -Granulation Amt Small (1-33%) -Granulation Quality Red -Slough/Fibrin Yes -Necrosis Amt None Present (0 %) -Necrotic Tissue Type Adherent Slough -Structure Exposed None/Limited to Skin Breakdown -Texture (Donna-wound Skin Appearance) No Abnormality, Assessed -Moisture (Donna-wound Skin Appearance Maceration ) -Color (Donna-wound Skin Appearance) No Abnormality, Assessed -Temperature (Donna-wound Skin No Abnormality Appearance) (Pt Warm) -Tenderness on Palpation (Donna-wound No Skin Appearance) -Ulcer Cleansing Rinsed/ Irrigated with Saline -Foul Odor after Cleansing No -Anesthetic Used 4% Lidocaine Solution [Edema Assessment] -Lower Limb Edema Present NA - Nurse 2 - General Ulcer CM Notes Start: 08/02/19 10:17 Freq: Status: Active Protocol: Activity Type Activity Date Activity User E-Sign Co-Sign Detail Recorded Client Recorded Date Recorded By Document 08/09/19 09:35 DV [id number] 08/09/19 09:37 DV 08/09/19 09:35 Wound Center Nurse 2 [Procedure/Treatment] #1 Right great toe amputation -Time 09:36 -Correct Patient Yes -Correct Side, Site, Position Yes -Correct Procedure Yes -Procedure Performed Yes -Type of Procedure Debridement -Clinical Debridement Subcutaneous -Post Debridement Size (cm) - Length 1.0 -Post Debridement Size (cm) - Width 2.7 -Post Debridement Size (cm) - Depth 1.1 -Total Square Cm 2.70 -Wound/Ulcer Outcome Not Healed -Ulcer Cleansing Rinsed/ Irrigated with Saline -Foul Odor after Cleansing No -Bioengineered Tissue No -Bleeding Controlled with Pressure -Offloading No -Treatment Response Procedure Tolerated Well [See Physician Procedure note for Specifics] Pain Scale: 0-10 Numeric [Pain] -Is Patient Pain Free? Yes Musculoskeletal: Tenderness - Some very minor tenderness with manipulation of surgical site, - - Right hallux amputated Neurological: - - Epicritic sensation grossly absent to the bilateral lower extremities consistent with patient's diabetic status Psych/Mental Status: Normal Affect, Appropriate Debridement Note Post-Debridement Measurements/Treatment WC - Nurse 2 - General Ulcer CM Notes Start: 08/02/19 10:17 Freq: Status: Active Protocol: Activity Type Activity Date Activity User E-Sign Co-Sign Detail Recorded Client Recorded Date Recorded By Document 08/02/19 11:36 DV [id number] 08/02/19 11:46 DV Document 08/09/19 09:35 DV [id number] 08/09/19 09:37 DV 08/02/19 08/09/19 11:36 09:35 Wound Center Nurse 2 #1 Right great toe amputation -Time 11:37 09:36 -Correct Patient Yes Yes -Correct Side, Site, Position Yes Yes -Correct Procedure Yes Yes -Procedure Performed Yes Yes -Type of Procedure Debridement Debridement -Clinical Debridement Subcutaneous Subcutaneous -Post Debridement Size (cm) - Length 1 1.0 -Post Debridement Size (cm) - Width 2.8 2.7 -Post Debridement Size (cm) - Depth 1.9 1.1 -Total Square Cm 2.8 2.70 -Wound/Ulcer Outcome Not Healed Not Healed -Ulcer Cleansing Rinsed/ Rinsed/ Irrigated with Irrigated with Saline Saline -Foul Odor after Cleansing No No -Bioengineered Tissue No No -Bleeding Controlled with Pressure Pressure -Offloading No No -Treatment Response Procedure Procedure Tolerated Well Tolerated Well Pain Scale: 0-10 Numeric Is Patient Pain Free? Yes Yes Wound debrided: Right distal foot Laterality: Right Type of Debridement: Excisional debridement Anesthesia Used: 4% Lidocaine Solution Depth: in the subcutaneous layer Percentage of wound debrided: 100 Instrument Used: 5mm curette Tissue Removed: Adherent slough, fibrin, devitalized subcutaneous tissue Severity: Fat Layer Exposed Amount of bleeding with debridement: Mild Bleeding Controlled with: Pressure Patient tolerated procedure well Assessment/Plan Active Problems Ulcer of right foot with fat layer exposed (Acute) Type 2 diabetes mellitus with diabetic polyneuropathy (Acute) PVD (peripheral vascular disease) (Acute) Assessment: As noted above Plan: Patient was carefully examined and evaluated again today in detail. Patient is status post debridement of all necrotic, nonviable, infected soft tissue and bone of the right foot with open right hallux amputation. Procedure was performed July 18, 2019. Patient currently residing in a assisted facility where he has his wound VAC changed 3 times a week. He will be leaving the assisted early next week and his cousin who lives with him will be taking over of the wound VAC changes at that time. The site was carefully evaluated in detail again today. A subcutaneous debridement was then performed as noted in the clinical panel. Small amount of bone to the right first metatarsal head still able to be visualized through the surgical site, but this is less then was exposed last week. Patient's wound VAC was then reapplied. This is to continue to be changed 3 times a week. Patient was instructed to keep the area offloaded at all times and to make sure there are no areas of pressure being applied to any part of his foot. Patient is to not have any compressive dressing applied. Patient is to continue to be nonweightbearing to the right foot. If he needs to move a very short distance or to transfer, he is able to do this with only heel weightbearing to the right side. I recommend a diet high in protein to help optimize ulcer healing potential. Patient still relates that he has not smoked a hospital since his surgery. Patient was educated on all signs and symptoms of local and systemic infection needs to go to emergency room immediately should he notice any of these. All questions were answered to his satisfaction. Patient will follow back up at the wound healing center in 1 week to check on progress, or sooner if needed before then.
[2019-08-16 09:40] VITALS: RESP 18; TEMP 36.6; BMI 29.8
--- NOTE | 2019-08-16 11:26 | PN.PCM_ITS ---
(1) Ulcer of right foot with fat layer exposed Status: Acute Current Visit: Yes Code(s): L97.512 - Non-pressure chronic ulcer of other part of right foot with fat layer exposed (2) Type 2 diabetes mellitus with diabetic polyneuropathy Status: Acute Current Visit: Yes Code(s): E11.42 - Type 2 diabetes mellitus with diabetic polyneuropathy (3) PVD (peripheral vascular disease) Status: Acute Current Visit: Yes Code(s): I73.9 - Peripheral vascular disease, unspecified (4) Tobacco abuse Status: Chronic Current Visit: No Code(s): Z72.0 - Tobacco use Type of Wound Date of Service: 08/16/19 Chief Complaint: Ulcer right foot History of Wound: This patient presents to the wound healing center today for follow-up of ulcer to right foot with area of open surgical site. Patient is status post debridement of all nonviable, infected, necrotic soft tissue and bone of the right foot with open right hallux amputation performed on 07/18/2019. Patient also had a vascular procedure performed by Dr. Shah to try and reestablish better blood flow to the lower extremity. Following patient's discharge from the hospital he is been at a custodial facility where he has had a wound VAC applied to the area that is to be changed 3 times a week. Patient currently feels well. Patient denies any feelings of nausea, vomiting, fever, chills. Progress of Wound: Open site is stable this week. Very small area of dried blood blister to lateral foot with no signs of infection. Patient denies any feelings of nausea, vomiting, fever, chills. - Physical Exam Vital Signs Temp Pulse Resp BP 97.9 F 103 H 18 122/70 H 08/16/19 09:40 08/09/19 09:13 08/16/19 09:40 08/09/19 09:13 General: Alert, Oriented x3, Cooperative, No apparent distress Extremities: No cyanosis, Capillary Refill Less than 3 Seconds, No Calf Tenderness - Negative Jarett and Warren signs bilateral, Diminished Peripheral Pulses Skin: Ulcer/ Wound - Ulcer to right foot and area of open surgical site. Very small amount of bone from the first met head can be visualized today. The base is a majority of granular tissue along with areas of adherent slough, fibrin, devitalized subcutaneous tissue. There is no malodor and no purulence noted. No other signs of local infection appreciated today. Very small area of a dried blood blister to patient's lateral foot as well with no signs of infection and no bogginess or crepitus to the area today. Wound Measurements and Assessment DOLORES - Nurse 1 - General Ulcer Measurement Start: 08/02/19 10:17 Freq: Status: Active Protocol: Activity Type Activity Date Activity User E-Sign Co-Sign Detail Recorded Client Recorded Date Recorded By Document 08/16/19 09:40 [facility] [id number] 08/16/19 09:52 [facility] 08/16/19 09:40 Wound Center Nurse 1 [Ulcer Assessment] #1 Right great toe amputation -Combined with other wound No -Current Size (cm) - Length 2.9 -Current Size (cm) - Width 1.2 -Current Size (cm) - Depth 1.2 -Total Square Cm 3.48 -Photo Taken No -Epithelialization None Present -Tunneling No -Undermining/Tunneling No -Circular Undermining No -Exudate Amt Medium -Exudate Type Serosanguineous -Wound Margin Distinct, Outline Attached -Granulation Amt Large (67-100%) -Granulation Quality Red -Slough/Fibrin Yes -Necrosis Amt Small (1-33%) -Necrotic Tissue Type Adherent Slough -Texture (Donna-wound Skin Appearance) Assessed, Localized Edema ,Scarring -Moisture (Donna-wound Skin Appearance Assessed,Dry/ ) Scaly -Color (Donna-wound Skin Appearance) Assessed, Erythema -Temperature (Donna-wound Skin No Abnormality Appearance) (Pt Warm) -Tenderness on Palpation (Donna-wound Yes Skin Appearance) -Ulcer Cleansing soapy water -Foul Odor after Cleansing No -Anesthetic Used 4% Lidocaine Solution WC - Nurse 2 - General Ulcer CM Notes Start: 08/02/19 10:17 Freq: Status: Active Protocol: Activity Type Activity Date Activity User E-Sign Co-Sign Detail Recorded Client Recorded Date Recorded By Document 08/16/19 10:31 DV [id number] 08/16/19 10:49 DV 08/16/19 10:31 Wound Center Nurse 2 [Procedure/Treatment] -Correct Patient Yes -Correct Side, Site, Position Yes -Correct Procedure Yes -Type of Procedure Debridement -Clinical Debridement Subcutaneous -Post Debridement Size (cm) - Length 1 -Post Debridement Size (cm) - Width 2.7 -Post Debridement Size (cm) - Depth 1.1 -Total Square Cm 2.7 -Ulcer Cleansing Rinsed/ Irrigated with Saline -Foul Odor after Cleansing No -Bleeding Controlled with Pressure -Offloading Yes -Treatment Response Procedure Tolerated Well [See Physician Procedure note for Specifics] Pain Scale: 0-10 Numeric [Pain] -Is Patient Pain Free? Yes Musculoskeletal: Tenderness - Some slight tenderness with manipulation of surgical site, - - Right hallux amputated Neurological: - - Epicritic sensation grossly absent to the bilateral lower extremities consistent with patient's diabetic status Psych/Mental Status: Normal Affect, Appropriate Debridement Note Post-Debridement Measurements/Treatment WC - Nurse 2 - General Ulcer CM Notes Start: 08/02/19 10:17 Freq: Status: Active Protocol: Activity Type Activity Date Activity User E-Sign Co-Sign Detail Recorded Client Recorded Date Recorded By Document 08/02/19 11:36 DV [id number] 08/02/19 11:46 DV Document 08/09/19 09:35 DV [id number] 08/09/19 09:37 DV Document 08/16/19 10:31 DV [id number] 08/16/19 10:49 DV 08/02/19 08/09/19 08/16/19 11:36 09:35 10:31 Wound Center Nurse 2 #1 Right great toe amputation -Time 11:37 09:36 -Correct Patient Yes Yes Yes -Correct Side, Site, Position Yes Yes Yes -Correct Procedure Yes Yes Yes -Procedure Performed Yes Yes -Type of Procedure Debridement Debridement Debridement -Clinical Debridement Subcutaneous Subcutaneous Subcutaneous -Post Debridement Size (cm) - Length 1 1.0 1 -Post Debridement Size (cm) - Width 2.8 2.7 2.7 -Post Debridement Size (cm) - Depth 1.9 1.1 1.1 -Total Square Cm 2.8 2.70 2.7 -Wound/Ulcer Outcome Not Healed Not Healed -Ulcer Cleansing Rinsed/ Rinsed/ Rinsed/ Irrigated with Irrigated with Irrigated with Saline Saline Saline -Foul Odor after Cleansing No No No -Bioengineered Tissue No No -Bleeding Controlled with Pressure Pressure Pressure -Offloading No No Yes -Treatment Response Procedure Procedure Procedure Tolerated Well Tolerated Well Tolerated Well Pain Scale: 0-10 Numeric Is Patient Pain Free? Yes Yes Yes Wound debrided: Right distal foot Laterality: Right Type of Debridement: Excisional debridement Anesthesia Used: 4% Lidocaine Solution Depth: in the subcutaneous layer Percentage of wound debrided: 100 Instrument Used: 5mm curette Tissue Removed: Adherent slough, fibrin, devitalized subcutaneous tissue Severity: Fat Layer Exposed Amount of bleeding with debridement: Mild Bleeding Controlled with: Pressure Patient tolerated procedure well Assessment/Plan Active Problems Ulcer of right foot with fat layer exposed (Acute) Type 2 diabetes mellitus with diabetic polyneuropathy (Acute) PVD (peripheral vascular disease) (Acute) Assessment: As noted above Plan: Patient was carefully examined and evaluated again today in detail. Patient is status post debridement of all necrotic, nonviable, infected soft tissue and bone of the right foot with open right hallux amputation. Procedure was performed July 18, 2019. Patient had been in a custodial having his VAC changed. He was discharged on Tuesday of this week and was supposed to go home with a wound VAC. I have signed the orders 2 different times and one was faxed last Tuesday from my office and one was signed earlier this week in my office with a person from the custodial. The patient relates that as of today he still does not have his wound VAC and has been changing the dressing daily with wet-to-dry dressings with the help of his cousin who lives with him. Since the patient does not have his wound VAC, we initiated the process to get the patient a KCI wound VAC and he will have this applied either later today or tomorrow. The site was carefully evaluated in detail again today. A subcutaneous debridement was then performed as noted in the clinical panel. Small amount of bone to the right first metatarsal head still able to be visualized through the surgical site. No worsening noted to surgical site. Patient then had a saline wet-to-dry dressing applied. He is to continue with dressing changes in this manner until his KCI wound VAC is applied either later today or tomorrow. The KCI VAC will then be changed 3 times a week. Patient was instructed to keep the area offloaded at all times and to make sure there are no areas of pressure being applied to any part of his foot. He has been noncompliant with this over the last week and has a noninfected dried blood blister to the right lateral foot with no openings in skin at this time. Patient is to not have any compressive dressing applied. Patient is to continue to be nonweightbearing to the right foot. If he needs to move a very short distance or to transfer, he is able to do this with only heel weightbearing to the right side. I recommend a diet high in protein to help optimize ulcer healing potential. Patient still relates that he has not smoked a hospital since his surgery. Patient was educated on all signs and symptoms of local and systemic infection needs to go to emergency room immediately should he notice any of these. All questions were answered to his satisfaction. Patient will follow back up at the wound healing center in 1 week to check on progress, or sooner if needed before then.
[2019-08-17 11:42] VITALS: BP 138/81; PULSE 103; RESP 16; TEMP 36.1; BMI 29.8
== END 2019-08-17 23:59 ==
LOC: WC 12:00
PROVIDERS: PCP Family Medicine Geriatric Medicine; Visit Provider Podiatrist
DX: E11.621 Type 2 diabetes mellitus with foot ulcer (principal); L97.512 Non-pressure chronic ulcer of other part of right foot with fat layer exposed; E11.42 Type 2 diabetes mellitus with diabetic polyneuropathy; E11.51 Type 2 diabetes mellitus with diabetic peripheral angiopathy without gangrene; K21.9 Gastro-esophageal reflux disease without esophagitis; G47.33 Obstructive sleep apnea (adult) (pediatric); M48.061 Spinal stenosis, lumbar region without neurogenic claudication; E78.5 Hyperlipidemia, unspecified; I10 Essential (primary) hypertension; Z79.01 Long term (current) use of 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s; Z79.899 Other long term (current) drug therapy; F17.200 Nicotine dependence, unspecified, uncomplicated
CPT/HCPCS: 11042; 97605; 99213; G0463

== ENCOUNTER 2019-09-11 10:15 | Outpatient (RCR) | payer MEDICARE, SELFPAY ==
[2019-08-18 01:11] VITALS: BP 138/81; PULSE 103; RESP 16; TEMP 36.1
[2019-08-23 10:27] VITALS: BP 125/78; PULSE 110; RESP 18; TEMP 36.4; BMI 29.8
--- NOTE | 2019-08-23 10:30 | WC ---
pt negative pressure vac removed black foam directly on dorsum of foot with no drape applied prior to application . pt and family member made aware of above problem
--- NOTE | 2019-08-23 11:48 | WC ---
KCI vac dressing applied with pt and caregiver shown application. both verbalized understanding.
--- NOTE | 2019-08-23 12:21 | PCM.WC.PN ---
(1) Ulcer of right foot with fat layer exposed Status: Acute Current Visit: No Code(s): L97.512 - Non-pressure chronic ulcer of other part of right foot with fat layer exposed (2) PVD (peripheral vascular disease) Status: Acute Current Visit: No Code(s): I73.9 - Peripheral vascular disease, unspecified (3) Type 2 diabetes mellitus with diabetic polyneuropathy Status: Acute Current Visit: No Code(s): E11.42 - Type 2 diabetes mellitus with diabetic polyneuropathy (4) Tobacco abuse Status: Chronic Current Visit: No Code(s): Z72.0 - Tobacco use Type of Wound Date of Service: 08/23/19 Chief Complaint: Ulcer right foot History of Wound: This patient presents to the wound healing center today for follow-up of ulcer to right foot with area of open surgical site. Patient is status post debridement of all nonviable, infected, necrotic soft tissue and bone of the right foot with open right hallux amputation performed on 07/18/2019. Patient also had a vascular procedure performed by Dr. Shah to try and reestablish better blood flow to the lower extremity. Following patient's discharge from the hospital [facility] where he has had a wound VAC applied to the area that is to be changed 3 times a week. Patient currently feels well. Patient denies any feelings of nausea, vomiting, fever, chills. Progress of Wound: Open site appears to be slight improved this week. Very small area of dried blood blister still noted to lateral foot with no signs of infection and has shown no worsening over the last week. Patient denies any feelings of nausea, vomiting, fever, chills. - Physical Exam Vital Signs Temp Pulse Resp BP 97.6 F L 110 H 18 125/78 H 08/23/19 10:27 08/23/19 10:27 08/23/19 10:27 08/23/19 10:27 General: Alert, Oriented x3, Cooperative, No apparent distress Extremities: No cyanosis, Capillary Refill Less than 3 Seconds, No Calf Tenderness - Negative Jarett and Warren signs bilateral, Diminished Peripheral Pulses Skin: Ulcer/ Wound - Ulcer to right foot and area of open surgical site. Very small amount of bone from the first met head can still be visualized today. The base has increased amount of granular tissue along with areas of adherent slough, fibrin, devitalized subcutaneous tissue. There is no malodor and no purulence noted. No other signs of local infection appreciated today. Very small area of a dried blood blister to patient's lateral foot as well with no signs of infection and no bogginess or crepitus to the area today in this area shows no worsening from last week. Wound Measurements and Assessment WC - Nurse 1 - General Ulcer Measurement Start: 08/23/19 10:27 Freq: Status: Active Protocol: Activity Type Activity Date Activity User E-Sign Co-Sign Detail Recorded Client Recorded Date Recorded By Document 08/23/19 10:27 RB [id number] 08/23/19 10:31 RB 08/23/19 10:27 Wound Center Nurse 1 [Ulcer Assessment] #1 Right great toe amputation -Combined with other wound No -Current Size (cm) - Length 1.1 -Current Size (cm) - Width 2.8 -Current Size (cm) - Depth 0.5 -Total Square Cm 3.08 -Tunneling No -Undermining/Tunneling No -Circular Undermining No -Exudate Amt Small -Exudate Type Serosanguineous -Wound Margin Thickened & Rolled Under -Granulation Amt Large (67-100%) -Granulation Quality [place],Red -Slough/Fibrin Yes -Necrosis Amt Small (1-33%) -Necrotic Tissue Type Adherent Slough -Structure Exposed N/A -Texture (Donna-wound Skin Appearance) Assessed -Moisture (Donna-wound Skin Appearance Assessed, ) Maceration -Color (Donna-wound Skin Appearance) Assessed -Temperature (Donna-wound Skin No Abnormality Appearance) (Pt Warm) -Tenderness on Palpation (Donna-wound No Skin Appearance) -Ulcer Cleansing Wound Cleanser -Foul Odor after Cleansing No -Anesthetic Used 4% Lidocaine Solution 08/23/19 10:30 Wound Center by Di Bell pt negative pressure vac removed black foam directly on dorsum of foot with no drape applied prior to application . pt and family member made aware of above problem Initialized on 08/23/19 10:30 - END OF NOTE WC - Nurse 2 - General Ulcer CM Notes Start: 08/23/19 10:27 Freq: Status: Active Protocol: Activity Type Activity Date Activity User E-Sign Co-Sign Detail Recorded Client Recorded Date Recorded By Document 08/23/19 11:00 DV [id number] 08/23/19 11:02 DV 08/23/19 11:00 Wound Center Nurse 2 [Procedure/Treatment] -Time 11:00 -Correct Patient Yes -Correct Side, Site, Position Yes -Correct Procedure Yes -Procedure Performed Yes -Type of Procedure Debridement -Clinical Debridement Subcutaneous -Post Debridement Size (cm) - Length 1.0 -Post Debridement Size (cm) - Width 2.5 -Post Debridement Size (cm) - Depth 1.1 -Total Square Cm 2.50 -Wound/Ulcer Outcome Not Healed -Ulcer Cleansing Rinsed/ Irrigated with Saline -Foul Odor after Cleansing No -Bioengineered Tissue No -Bleeding Controlled with Pressure -Offloading No -Treatment Response Procedure Tolerated Well [See Physician Procedure note for Specifics] Pain Scale: 0-10 Numeric [Pain] -Is Patient Pain Free? Yes Musculoskeletal: Tenderness - Some slight tenderness with manipulation of surgical site, - - Right hallux is amputated Neurological: - - Epicritic sensation grossly absent to the bilateral lower extremities consistent with patient's diabetic status Psych/Mental Status: Normal Affect, Appropriate Debridement Note Post-Debridement Measurements/Treatment WC - Nurse 2 - General Ulcer CM Notes Start: 08/23/19 10:27 Freq: Status: Active Protocol: Activity Type Activity Date Activity User E-Sign Co-Sign Detail Recorded Client Recorded Date Recorded By Document 08/23/19 11:00 DV [id number] 08/23/19 11:02 DV 08/23/19 11:00 Wound Center Nurse 2 #1 Right great toe amputation -Time 11:00 -Correct Patient Yes -Correct Side, Site, Position Yes -Correct Procedure Yes -Procedure Performed Yes -Type of Procedure Debridement -Clinical Debridement Subcutaneous -Post Debridement Size (cm) - Length 1.0 -Post Debridement Size (cm) - Width 2.5 -Post Debridement Size (cm) - Depth 1.1 -Total Square Cm 2.50 -Wound/Ulcer Outcome Not Healed -Ulcer Cleansing Rinsed/ Irrigated with Saline -Foul Odor after Cleansing No -Bioengineered Tissue No -Bleeding Controlled with Pressure -Offloading No -Treatment Response Procedure Tolerated Well Pain Scale: 0-10 Numeric Is Patient Pain Free? Yes Wound debrided: Right distal foot Laterality: Right Type of Debridement: Excisional debridement Anesthesia Used: 4% Lidocaine Solution Depth: in the subcutaneous layer Percentage of wound debrided: 100 Instrument Used: 5mm curette, #15 blade Tissue Removed: Adherent slough, fibrin, devitalized subcutaneous tissue Severity: Fat Layer Exposed Amount of bleeding with debridement: Mild Bleeding Controlled with: Pressure Patient tolerated procedure well Assessment/Plan Assessment: As noted above Plan: Patient was carefully examined and evaluated again today in detail. Patient is status post debridement of all necrotic, nonviable, infected soft tissue and bone of the right foot with open right hallux amputation. Procedure was performed July 18, 2019. The patient never received his wound VAC that he was [facility]. We were able to get him a [employer]CI VAC on Tuesday of this week and patient has had that for the last 3 and half days. The site was carefully evaluated in detail again today. A subcutaneous debridement was then performed as noted in the clinical panel. Small amount of bone to the right first metatarsal head still able to be visualized through the surgical site. No worsening noted to surgical site. Patient then had his wound VAC applied. Patient's cousin, who lives with him and changes his VAC for him was present and wash exactly how to apply the wound VAC. During the last VAC change she had accidentally had the sponge directly in contact with the dorsal aspect of the skin on his foot. As of today, there was no breakdown appreciated to this area just some slight irritation to the skin. We will watch this area closely. The KCI VAC is to be changed 3 times a week. Patient was instructed to keep the area offloaded at all times and to make sure there are no areas of pressure being applied to any part of his foot. He has been noncompliant with this over the last week and has a noninfected dried blood blister to the right lateral foot with no openings in skin at this time. Patient is to not have any compressive dressing applied. Patient is to continue to be nonweightbearing to the right foot. If he needs to move a very short distance or to transfer, he is able to do this with only heel weightbearing to the right side. I recommend a diet high in protein to help optimize ulcer healing potential. Patient still relates that he has not smoked a hospital since his surgery. Patient was educated on all signs and symptoms of local and systemic infection needs to go to emergency room immediately should he notice any of these. All questions were answered to his satisfaction. Patient will follow back up at the wound healing center in 1 week to check on progress, or sooner if needed before then.
[2019-08-30 10:00] VITALS: BP 156/93; PULSE 103; RESP 20; TEMP 36.6; BMI 29.8
--- NOTE | 2019-08-30 11:12 | PCM.WC.PN ---
(1) Ulcer of right foot with fat layer exposed Status: Acute Current Visit: No Code(s): L97.512 - Non-pressure chronic ulcer of other part of right foot with fat layer exposed (2) PVD (peripheral vascular disease) Status: Acute Current Visit: No Code(s): I73.9 - Peripheral vascular disease, unspecified (3) Type 2 diabetes mellitus with diabetic polyneuropathy Status: Acute Current Visit: No Code(s): E11.42 - Type 2 diabetes mellitus with diabetic polyneuropathy (4) Tobacco abuse Status: Chronic Current Visit: No Code(s): Z72.0 - Tobacco use Type of Wound Date of Service: 08/30/19 Chief Complaint: Ulcer right foot History of Wound: This patient presents to the wound healing center today for follow-up of ulcer to right foot with area of open surgical site. Patient is status post debridement of all nonviable, infected, necrotic soft tissue and bone of the right foot with open right hallux amputation performed on 07/18/2019. Patient also had a vascular procedure performed by Dr. Shah to try and reestablish better blood flow to the lower extremity. Following patient's discharge from the hospital he is been at a group home facility where he has had a wound VAC applied to the area that is to be changed 3 times a week. Patient currently feels well. Patient denies any feelings of nausea, vomiting, fever, chills. Progress of Wound: Open site continues to show improvement. Very small area of dried blood blister still noted to lateral foot with no signs of infection and has shown no worsening over the last week. Patient denies any feelings of nausea, vomiting, fever, chills. - Physical Exam Vital Signs Temp Pulse Resp BP 97.9 F 103 H 20 H 156/93 H 08/30/19 10:00 08/30/19 10:00 08/30/19 10:00 08/30/19 10:00 General: Alert, Oriented x3, Cooperative, No apparent distress Extremities: No cyanosis, Capillary Refill Less than 3 Seconds, No Calf Tenderness - Negative Jarett and Warren signs bilateral, Diminished Peripheral Pulses Skin: Ulcer/ Wound - Ulcer to right foot and area of open surgical site. Depth continues to decrease and only a very small amount of bone still visualized and continues to improve each week. The base has increased amount of granular tissue along with areas of adherent slough, fibrin, devitalized subcutaneous tissue. There is no malodor and no purulence noted. No other signs of local infection appreciated today. Very small area of a dried blood blister to patient's lateral foot as well with no signs of infection and no bogginess or crepitus to the area today in this area shows no worsening from last week. Wound Measurements and Assessment WC - Nurse 1 - General Ulcer Measurement Start: 08/23/19 10:27 Freq: Status: Active Protocol: Activity Type Activity Date Activity User E-Sign Co-Sign Detail Recorded Client Recorded Date Recorded By Document 08/30/19 10:00 DL [id number] 08/30/19 10:07 DL 08/30/19 10:00 Wound Center Nurse 1 [Ulcer Assessment] #1 Right great toe amputation -Current Size (cm) - Length 1.3 -Current Size (cm) - Width 3.2 -Current Size (cm) - Depth 0.9 -Total Square Cm 4.16 -Photo Taken No -Exudate Amt Small -Exudate Type Serosanguineous -Wound Margin Distinct, Outline Attached -Granulation Amt Large (67-100%) -Granulation Quality Red -Necrosis Amt Small (1-33%) -Necrotic Tissue Type Adherent Slough -Structure Exposed N/A -Texture (Donna-wound Skin Appearance) Scarring -Moisture (Donna-wound Skin Appearance Maceration ) -Color (Donna-wound Skin Appearance) Rubor -Temperature (Donna-wound Skin No Abnormality Appearance) (Pt Warm) -Tenderness on Palpation (Donna-wound No Skin Appearance) -Ulcer Cleansing Wound Cleanser -Foul Odor after Cleansing No -Anesthetic Used 5% Lidocaine Gel Musculoskeletal: Tenderness - Some very minor tenderness with manipulation of surgical site, - - Right hallux is amputated Neurological: - - Epicritic sensation grossly absent to the bilateral lower extremities consistent with patient's diabetic status Psych/Mental Status: Normal Affect, Appropriate Debridement Note Post-Debridement Measurements/Treatment WC - Nurse 2 - General Ulcer CM Notes Start: 08/23/19 10:27 Freq: Status: Active Protocol: Activity Type Activity Date Activity User E-Sign Co-Sign Detail Recorded Client Recorded Date Recorded By Document 08/23/19 11:00 DV [id number] 08/23/19 11:02 DV 08/23/19 11:00 Wound Center Nurse 2 #1 Right great toe amputation -Time 11:00 -Correct Patient Yes -Correct Side, Site, Position Yes -Correct Procedure Yes -Procedure Performed Yes -Type of Procedure Debridement -Clinical Debridement Subcutaneous -Post Debridement Size (cm) - Length 1.0 -Post Debridement Size (cm) - Width 2.5 -Post Debridement Size (cm) - Depth 1.1 -Total Square Cm 2.50 -Wound/Ulcer Outcome Not Healed -Ulcer Cleansing Rinsed/ Irrigated with Saline -Foul Odor after Cleansing No -Bioengineered Tissue No -Bleeding Controlled with Pressure -Offloading No -Treatment Response Procedure Tolerated Well Pain Scale: 0-10 Numeric Is Patient Pain Free? Yes Wound debrided: Right distal foot Laterality: Right Type of Debridement: Excisional debridement Anesthesia Used: 4% Lidocaine Solution Depth: in the subcutaneous layer Percentage of wound debrided: 100 Instrument Used: 3mm curette Tissue Removed: Adherent slough, fibrin, devitalized subcutaneous tissue Severity: Fat Layer Exposed Amount of bleeding with debridement: Mild Bleeding Controlled with: Pressure Patient tolerated procedure well Assessment/Plan Assessment: As noted above Plan: Patient was carefully examined and evaluated again today in detail. Patient is status post debridement of all necrotic, nonviable, infected soft tissue and bone of the right foot with open right hallux amputation. Procedure was performed July 18, 2019. Patient has been using [employer] wound VAC. The site was carefully evaluated in detail again today. A subcutaneous debridement was then performed as noted in the clinical panel. Small amount of bone to the right first metatarsal head still able to be visualized through the surgical site, but the amount of exposed bone continues to decrease each week. There is also decreased depth noted to the surgical site in general. Patient then had his wound VAC applied. Patient's cousin, who lives with him and changes his VAC for him was present. The [employer] VAC is to be changed 3 times a week. Patient was instructed to keep the area offloaded at all times and to make sure there are no areas of pressure being applied to any part of his foot. He has been noncompliant with this over the last week and has a noninfected dried blood blister to the right lateral foot with no openings in skin at this time. Patient is to not have any compressive dressing applied. Patient is to continue to be nonweightbearing to the right foot. If he needs to move a very short distance or to transfer, he is able to do this with only heel weightbearing to the right side. I recommend a diet high in protein to help optimize ulcer healing potential. Patient still relates that he has not smoked a hospital since his surgery. Patient was educated on all signs and symptoms of local and systemic infection needs to go to emergency room immediately should he notice any of these. All questions were answered to his satisfaction. Patient will follow back up at the wound healing center in 1 week to check on progress, or sooner if needed before then.
[2019-09-06 11:19] VITALS: BP 117/79; PULSE 106; RESP 18; TEMP 36.4; BMI 29.8
--- NOTE | 2019-09-06 11:21 | WC ---
pt wound vac dressing removed excoration noted black foam against good intact skin. pt and caregive shown anmade aware.. pts cousin and pt states vac alarming leak. Dr Barney made awre of above incident
--- NOTE | 2019-09-06 13:27 | PCM.WC.PN ---
(1) Ulcer of right foot with fat layer exposed Status: Acute Current Visit: No Code(s): L97.512 - Non-pressure chronic ulcer of other part of right foot with fat layer exposed (2) PVD (peripheral vascular disease) Status: Acute Current Visit: No Code(s): I73.9 - Peripheral vascular disease, unspecified (3) Type 2 diabetes mellitus with diabetic polyneuropathy Status: Acute Current Visit: No Code(s): E11.42 - Type 2 diabetes mellitus with diabetic polyneuropathy (4) Tobacco abuse Status: Chronic Current Visit: No Code(s): Z72.0 - Tobacco use Type of Wound Date of Service: 09/06/19 Chief Complaint: Ulcer right foot History of Wound: This patient presents to the wound healing center today for follow-up of ulcer to right foot with area of open surgical site. Patient is status post debridement of all nonviable, infected, necrotic soft tissue and bone of the right foot with open right hallux amputation performed on 07/18/2019. Patient also had a vascular procedure performed by Dr. Shah to try and reestablish better blood flow to the lower extremity. Following patient's discharge from the hospital he is been at a [facility] facility where he has had a wound VAC applied to the area that is to be changed 3 times a week. Patient currently feels well. Patient denies any feelings of nausea, vomiting, fever, chills. Progress of Wound: Continued slow improvement noted. Patient denies any feelings of nausea, vomiting, fever, chills. - Physical Exam Vital Signs Temp Pulse Resp BP 97.5 F L 106 H 18 117/79 09/06/19 11:19 09/06/19 11:19 09/06/19 11:19 09/06/19 11:19 General: Alert, Oriented x3, Cooperative, No apparent distress Extremities: No cyanosis, Capillary Refill Less than 3 Seconds, No Calf Tenderness - Negative Jarett breath sounds bilateral, Diminished Peripheral Pulses Skin: Ulcer/ Wound - Ulcer to right foot and area of open surgical site. Depth continues to decrease. The base has increased amount of granular tissue along with areas of adherent slough, fibrin, devitalized subcutaneous tissue. There is no malodor and no purulence noted. No other signs of local infection appreciated today. Very small area of a dried blood blister to patient's lateral foot as well with no signs of infection and no bogginess or crepitus to the area today in this area shows no worsening from last week. Wound Measurements and Assessment WC - Nurse 1 - General Ulcer Measurement Start: 08/23/19 10:27 Freq: Status: Active Protocol: Activity Type Activity Date Activity User E-Sign Co-Sign Detail Recorded Client Recorded Date Recorded By Document 09/06/19 11:19 RB [id number] 09/06/19 11:24 RB 09/06/19 11:19 Wound Center Nurse 1 [Ulcer Assessment] #1 Right great toe amputation -Combined with other wound No -Current Size (cm) - Length 1 -Current Size (cm) - Width 2.1 -Current Size (cm) - Depth 0.3 -Total Square Cm 2.1 -Tunneling No -Undermining/Tunneling No -Circular Undermining No -Exudate Amt Medium -Exudate Type Serosanguineous -Wound Margin Thickened & Rolled Under -Granulation Amt Medium (34-66%) -Granulation Quality [place],Red -Slough/Fibrin Yes -Necrosis Amt Small (1-33%) -Necrotic Tissue Type Adherent Slough -Structure Exposed N/A -Texture (Donna-wound Skin Appearance) Excoriation -Moisture (Donna-wound Skin Appearance Maceration ) -Color (Donna-wound Skin Appearance) Assessed -Temperature (Donna-wound Skin No Abnormality Appearance) (Pt Warm) -Tenderness on Palpation (Donna-wound No Skin Appearance) -Ulcer Cleansing Wound Cleanser -Foul Odor after Cleansing No -Anesthetic Used 4% Lidocaine Solution 09/06/19 11:21 Wound Center by Di Bell pt wound vac dressing removed excoration noted black foam against good intact skin. pt and caregive shown anmade aware.. pts cousin and pt states vac alarming leak. Dr Barney made awre of above incident Initialized on 09/06/19 11:21 - END OF NOTE WC - Nurse 2 - General Ulcer CM Notes Start: 08/23/19 10:27 Freq: Status: Active Protocol: Activity Type Activity Date Activity User E-Sign Co-Sign Detail Recorded Client Recorded Date Recorded By Document 09/06/19 12:27 DV [id number] 09/06/19 12:29 DV 09/06/19 12:27 Wound Center Nurse 2 [Procedure/Treatment] -Time 11:50 -Correct Patient Yes -Correct Side, Site, Position Yes -Correct Procedure Yes -Procedure Performed Yes -Type of Procedure Debridement -Clinical Debridement Subcutaneous -Post Debridement Size (cm) - Length 0.9 -Post Debridement Size (cm) - Width 2.3 -Post Debridement Size (cm) - Depth 0.4 -Total Square Cm 2.07 -Wound/Ulcer Outcome Not Healed -Ulcer Cleansing Rinsed/ Irrigated with Saline -Foul Odor after Cleansing No -Bioengineered Tissue No -Bleeding Controlled with Pressure -Offloading No -Treatment Response Procedure Tolerated Well [See Physician Procedure note for Specifics] Pain Scale: 0-10 Numeric [Pain] -Is Patient Pain Free? Yes Musculoskeletal: Tenderness - Some very minor tenderness with manipulation of surgical site, - - Right hallux is amputated Neurological: - - Epicritic sensation grossly absent to the bilateral lower extremities consistent with patient's diabetic status Psych/Mental Status: Normal Affect, Appropriate Debridement Note Post-Debridement Measurements/Treatment WC - Nurse 2 - General Ulcer CM Notes Start: 08/23/19 10:27 Freq: Status: Active Protocol: Activity Type Activity Date Activity User E-Sign Co-Sign Detail Recorded Client Recorded Date Recorded By Document 08/23/19 11:00 DV [id number] 08/23/19 11:02 DV Document 09/06/19 12:27 DV [id number] 09/06/19 12:29 DV 08/23/19 09/06/19 11:00 12:27 Wound Center Nurse 2 #1 Right great toe amputation -Time 11:00 11:50 -Correct Patient Yes Yes -Correct Side, Site, Position Yes Yes -Correct Procedure Yes Yes -Procedure Performed Yes Yes -Type of Procedure Debridement Debridement -Clinical Debridement Subcutaneous Subcutaneous -Post Debridement Size (cm) - Length 1.0 0.9 -Post Debridement Size (cm) - Width 2.5 2.3 -Post Debridement Size (cm) - Depth 1.1 0.4 -Total Square Cm 2.50 2.07 -Wound/Ulcer Outcome Not Healed Not Healed -Ulcer Cleansing Rinsed/ Rinsed/ Irrigated with Irrigated with Saline Saline -Foul Odor after Cleansing No No -Bioengineered Tissue No No -Bleeding Controlled with Pressure Pressure -Offloading No No -Treatment Response Procedure Procedure Tolerated Well Tolerated Well Pain Scale: 0-10 Numeric Is Patient Pain Free? Yes Yes Wound debrided: Right distal foot Laterality: Right Type of Debridement: Excisional debridement Anesthesia Used: 4% Lidocaine Solution Depth: in the subcutaneous layer Percentage of wound debrided: 100 Instrument Used: 3mm curette Tissue Removed: Adherent slough, fibrin, devitalized subcutaneous tissue Severity: Fat Layer Exposed Amount of bleeding with debridement: Mild Bleeding Controlled with: Pressure Patient tolerated procedure well Assessment/Plan Assessment: As noted above Plan: Patient was carefully examined and evaluated again today in detail. Patient is status post debridement of all necrotic, nonviable, infected soft tissue and bone of the right foot with open right hallux amputation. Procedure was performed July 18, 2019. Patient has been using [employer] wound VAC. The site was carefully evaluated in detail again today. A subcutaneous debridement was then performed as noted in the clinical panel. Site continues to show improvement. No clinical signs of infection appreciated today. There is also decreased depth noted to the surgical site in general. Patient then had his wound VAC applied. Patient's cousin, who lives with him and changes his VAC for him was present. The [employer] VAC is to be changed 3 times a week. We will discuss getting home health for this patient as there have been times when the patient's cousin has not completely applied the wound VAC as instructed. Patient was instructed to keep the area offloaded at all times and to make sure there are no areas of pressure being applied to any part of his foot. He has been noncompliant with this over the last week and has a noninfected dried blood blister to the right lateral foot with no openings in skin at this time. Patient is to not have any compressive dressing applied. Patient is to continue to be nonweightbearing to the right foot. If he needs to move a very short distance or to transfer, he is able to do this with only heel weightbearing to the right side. I recommend a diet high in protein to help optimize ulcer healing potential. Patient still relates that he has not smoked a hospital since his surgery. Patient was educated on all signs and symptoms of local and systemic infection needs to go to emergency room immediately should he notice any of these. All questions were answered to his satisfaction. Patient will follow back up at the wound healing center in 1 week to check on progress, or sooner if needed before then.
[2019-09-11 11:00] VITALS: BP 147/91; PULSE 114; RESP 16; TEMP 36.6; BMI 29.8
--- NOTE | 2019-09-11 11:01 | WC ---
PT IN FOR NURSE VISIT/WOUND VAC CHANGE. R GR TOE AMP SITE W/ ^ REDNESS, WARMTH, SWELLING- EXTENDING ONTO DORSAL ASPECT OF FOOT. PT AND HIS FRIEND REPORT ^ EXUDATE W/ LAST VAC CHANGE AT HOME ON TUESDAY. HIEN FLO NOTIFIED. SHE UPDATED DR SAMPSON ON ALL. HE SPOKE W/ PT VIA PHONE IN TX ROOM AND RECOMMENDED PT GO TO [facility] ED FOR FURTHER EVAL AND TX. PT AGREEABLE. WOUND COVERED W/ DCD PRIOR TO LEAVING.
== END 2019-09-15 23:59 ==
LOC: WC 10:15
PROVIDERS: PCP Family Medicine Geriatric Medicine; Visit Provider Podiatrist
DX: E11.621 Type 2 diabetes mellitus with foot ulcer (principal); L97.512 Non-pressure chronic ulcer of other part of right foot with fat layer exposed; E11.51 Type 2 diabetes mellitus with diabetic peripheral angiopathy without gangrene; E11.42 Type 2 diabetes mellitus with diabetic polyneuropathy; Z72.0 Tobacco use; Z89.411 Acquired absence of right great toe; Z91.19 Patient's noncompliance with other medical treatment and regimen
CPT/HCPCS: 11042; 97605; 99212; G0463

== ENCOUNTER 2019-09-11 11:32 | Inpatient (IN) | payer MEDICARE, SELFPAY ==
[2019-09-11] VITALS (9 sets, daily range): BP systolic 140–182; BP diastolic 78–103; PULSE 100–124; RESP 18–20; TEMP 36.6–37.8; O2SAT 96–100; BMI 29.8; BMI 29.9; BMI 31.0
--- NOTE | 2019-09-11 11:50 | RAD_ITS ---
STUDY: X-RAY - RIGHT FOOT CLINICAL: Male, 68 years old. infection to right big toe TECHNIQUE: 3 view(s) of the foot. COMPARISON: Previous postoperative x-rays obtained on 07/18/2019 FINDINGS: This patient''s had an amputation of the middle and distal phalanx of great toe. There is some some mild soft tissue swelling overlying the distal aspect of the distal metaphysis first metatarsal. Upon careful inspection distal metaphysis of the first metatarsal there is some osteoporosis and bone destruction involving the medial aspect of distal metaphysis of fourth metatarsal. This is characteristic of acute osteomyelitis. RAD/Foot min 3 Views IMPRESSION: Acute osteomyelitis with bone destruction involving the distal metaphysis of the first metatarsal. Electronically Signed: Hima Macdonald, at 12:24 EST Tel , Service support ,
--- NOTE | 2019-09-11 12:18 | ED.VIS.GEN ---
History of Present Illness Chief Complaint: Wound Informant: Patient Onset: Today Maximum Severity: Mild Narrative: Right foot infection status post amputation The patient has history of insulin pen diabetes mellitus status post right foot amputation involving the right great toe he is followed up with wound care center routinely he was seen recently there and today during the visit it was noticed he had a red you over the top of the right foot he was sent to the emergency department, he is not been ill in any way he reports doing the dressing changes following wound care instructions, no fever cough able to execute his normal daily activities Past Medical History - Allergies and Home Meds Allergies/Adverse Reactions: Allergies No Known Allergies Allergy (Verified 09/11/19 11:58) Primary Care Physician: Saurabh Hernandez Chi, MD [Primary Care Provider] - Past Medical History: - Surgical History: - - Lumbar laminectomy and fusion x 2, LLE surgery for clot retrieval with follow-up I&D x2 for infection. Smoking Status: Former smoker - Family History Paternal Family History: Reports: Diabetes Maternal Family History: Reports: Diabetes, Heart Disease, Hypertension, - - History of brain aneurysms. Review of Systems General: Denies: Chills, Fever, Sweats Eyes: Denies: Visual changes - bilaterally, Diplopia ENT: Denies: Rhinorrhea, Sore throat Cardiovascular: Denies: Chest pain, Palpitations Respiratory: Denies: Dyspnea, Cough, Dyspnea on exertion Gastrointestinal: Denies: Abdominal pain, Nausea, Vomiting, Diarrhea, Melena, Hematochezia Genitourinary: Denies: Dysuria, Hematuria, Frequency Musculoskeletal: Reports: - - Status post amputation right great toe with reddish discoloration of the dorsal surface foot noticed at wound care center today. Denies: Back pain, Extremity Pain Skin: Denies: Rash, Wounds Neurological: Denies: Headache, Weakness, Numbness Physical Exam Vital Signs/Narrative: Vital Signs Temp Pulse Resp BP Pulse Ox 09/11/19 11:56 97.9 F 100 18 140/80 H 97 09/11/19 11:33 97.9 F 106 H 20 H 141/81 H 98 General: Well nourished, Well developed, No Acute Distress Head: Normocephalic, Atraumatic Eyes: Perrl, EOMI ENT: Moist mucous membranes, No rhinorrhea Neck: Supple, Nontender Cardiovascular: Regular rate, Regular rhythm, No murmurs Respiratory: No distress, CTA bilaterally, Chest nontender Abdomen: Soft, Nontender, Nondistended, Normal bowel sounds Back: Nontender, Normal Inspection Extremities: Nontender, No edema, - - Right foot the amputation site great toe was unremarkable there is beefy red granulation tissue there is some reddish discoloration to the dorsal surface of the foot there is no odor or drainage no crepitance, the ankles unremarkable Skin: Normal color, No rash Neurological: Alert, Oriented x3, Cranial nerves II-XII grossly intact, Normal Strength, Normal Sensation Psychological: Normal affect, Normal Mood Diagnostic/Tx/Re-eval - Medical Decision Making Differential is rather extensive related his care I spoke with Dr. Barney podiatrsony who was contacted by wound care center His labs are generally unremarkable, the patient's x-ray of foot shows what radiology is believes is acute osteomyelitis, spoke with podiatry spoke with the patient the patient indicated he wanted to go home and have things managed as an outpatient, he asked that we explained to the patient their preference and feeling that he would receive more appropriate therapy if he was admitted the patient's then came in she basically convinced the patient to be admitted for further management of all the above Admit stable Final impression acute osteomyelitis right foot great toe 1st metatarsal, status post amputation right great toe ED Disposition - Plan for ED Patient: Diagnosis: Diabetic foot infection, Osteomyelitis Referrals: Saurabh Hernandez Chi, MD [Primary Care Provider] -
[2019-09-11 12:19] LABS: Absolute Lymphocyte Count 1.74 X10^3/uL (0.83-4.51); Absolute Neutrophil Count 4.3 X10^3/uL (2.0-7.7); Basophil# 0.04 X10^3/uL; Basophil% 0.6 % (0-1); Eosinophil# 0.07 X10^3/uL; Eosinophils% 1.1 % (0-5); Hematocrit 36.8 % (40-54); Hemoglobin 11.8 g/dL (13.0-16.5); Lymphocyte # 1.74 X10^3/ul (4.0); Lymphocyte % 26.1 % (19-41); Mean Corp Hgb Conc 32.1 g/dL (32-36); Mean Corpuscular Hgb 28.2 pg (27.0-32.0); Mean Platelet Vol. 9.9 fl (6.2-12.0); Monocyte# 0.47 X10^3/uL; Monocyte% 7.1 % (0-10); NRBC Flagged by Analyzer 0 % (0-5); Neutrophil # 4.29 X10^3/uL (2.7-7.7); Neutrophil % 64.3 % (47-70); Platelet Count 242 K/mm3 (150-450); RBC Distribution Width CV 13.4 % (11.6-14.6); RBC Distribution Width SD 43.3 fl (35.1-43.9); Red Blood Count 4.18 M/mm3 (4.6-6.2); White Blood Count 6.7 K/mm3 (4.4-11.0)
[2019-09-11 12:25] LABS: Erythrocyte Sedimentation Rate 72 mm/hr (0-20)
[2019-09-11 12:32] LABS: Anion Gap 8 (5-15); BUN 8 mg/dL (7-18); BUN/Creat Ratio 9.5 RATIO (10-20); Calcium,Total 8.5 mg/dL (8.5-10.1); Chloride 105 mmol/L (98-107); Creatinine, Serum 0.84 mg/dL (0.70-1.30); EST Glomerular Filtration Rate 96 mL/min (>60); Est Glom Filt Rate - Afr Amer 117 mL/min (>60); Estimated Creatinine Clearance 92.13 ml/min; Glucose 261 mg/dL (74-106); Sodium Level 136 mmol/L (136-145)
--- NOTE | 2019-09-11 13:35 | HP.PCM_ITS ---
History of Present Illness Date of Admission: 09/11/19 Chief Complaint: s/p R Great Toe resection, new onset erythema, edema, pain x 24 hours Admission Diagnoses: Acute Right Foot Diabetic Foot Infection, s/p prior R great toe resection Chronic pain syndrome s/p back surgery x 2 Hx BL LE DVT Chronic COPD HTN HLD Diabetes mellitus type II (HgbA1c 10%) with hyperglycemia, uncontrolled OA GERD Former Tobacco use PAD The patient is a 68 y/o M w/ PMHx: Chronic pain syndrome s/p back surgery x 2, Hx BL LE DVT, Chronic COPD, HTN, HLD, Diabetes mellitus type II (HgbA1c 10%), OA, GERD, Former Tobacco use, PAD with initial history of onset diabetic foot infection mid June with a right great toe injury evaluated in the ED on 07/14/2019 with initiation of oral Keflex at that time with follow-up with podiatry who referred him to the ED on 07/17/2019 with prolonged admission with 07/18/2019 debridement of necrotic nonviable infected soft tissue and bone of the right foot with an open hallux amputation in addition to 07/25/2019 vascular surgery, Dr. Shah ultrasound-guided retrograde left common femoral artery angiogram with catheter with balloon angioplasty of the SFA into the popliteal with placement of a drug-coated balloon discharged to shelter facility on 07/25/2019 with alterations to his insulin given controlled diabetes on Augmentin regimen x4 weeks per infectious disease recommendation who now represents to the [facility] ED on 09/11/19 with history of last dressing change 48 hours prior to current presentation with no fevers or chills but onset following removal dressing today of postoperative region erythema, mild drainage from the recent first great toe resection site, edema and throbbing 3-5 out of 10 pain with wound evaluation on day of ED presentation with referral to the ED given concerning findings. Work-up in the ED included T 97.9, heart rate 106, BP 141/81, respiratory rate 20, 98% on room air, CBC with WC 6.7, hemoglobin 11.8, platelet 242 without market shift, ESR 72, coags obtained following admission is not obtained in the ED with INR 3.1, BMP with glucose 261, CRP 114, plain film of the right foot with acute osteomyelitis with bone destruction involving the distal metaphysis of the first metatarsal. ED physician discussed case with podiatry, Dr. Meyers who is familiar with the patient who requested admission, agreed with broad-spectrum antibiotic therapy and likely need for return to OR. In the ED patient ministered Cammy. Past Medical History Past Medical History (Chronic Problems): Chronic Problems (Last Updated 09/10/19 @ 10:05 by Allie Hobbs) Lumbar spinal stenosis (Chronic) Obstructive sleep apnea (Chronic) Scabies infestation (Chronic) DVT (deep venous thrombosis) (Chronic) Tobacco abuse (Chronic) GERD (gastroesophageal reflux disease) (Chronic) Neuropathy (Chronic) Hypertension (Chronic) COPD (chronic obstructive pulmonary disease) (Chronic) Peripheral vascular disease (Chronic) Hyperlipidemia (Chronic) Erectile dysfunction (Chronic) Diabetes mellitus (Chronic) IDDM (insulin dependent diabetes mellitus) (Chronic) Medical History: Medical History (Last Updated 09/10/19 @ 10:05 by Allie Hobbs) Screen for colon cancer (Acute) Z12.11 Diabetic foot infection (Acute) E11.628, L08.9 Gangrene of toe (Acute) I96 Diabetic ulcer of right foot (Acute) E11.621, L97.519 Osteomyelitis (Acute) M86.9 Type 2 diabetes mellitus with diabetic polyneuropathy (Acute) E11.42 PVD (peripheral vascular disease) (Acute) I73.9 Lumbar spinal stenosis (Chronic) M48.06 Obstructive sleep apnea (Chronic) G47.33 Scabies infestation (Chronic) DVT (deep venous thrombosis) (Chronic) Tobacco abuse (Chronic) Z72.0 GERD (gastroesophageal reflux disease) (Chronic) K21.9 Neuropathy (Chronic) G62.9 Hypertension (Chronic) I10 COPD (chronic obstructive pulmonary disease) (Chronic) J44.9 Peripheral vascular disease (Chronic) I73.9 Hyperlipidemia (Chronic) E78.5 Erectile dysfunction (Chronic) N52.9 Diabetes mellitus (Chronic) E11.9 IDDM (insulin dependent diabetes mellitus) (Chronic) E11.9, Z79.4 Back problem M53.9 Bleeding disorder D69.9 Allergies No Known Allergies Allergy (Verified 09/11/19 11:58) Home Medications: Ambulatory Orders Medication Instructions Recorded Diltiazem 180 mg PO DAILY 09/26/13 Gabapentin [Neurontin] 600 mg PO TID 09/26/13 Warfarin [Coumadin] 8 mg PO QODAY 11/06/15 Zolpidem Tartrate [Ambien] 10 mg PO QHS 11/06/15 Omeprazole [Prilosec] 40 mg PO DAILY 03/13/18 Multivitamin [Daily Multiple 1 ea PO DAILY 07/17/19 Vitamin] Aspirin [Aspirin, Baby] 81 mg PO DAILY@0800 09/11/19 Clopidogrel Bisulfate [Plavix] 75 mg PO DAILY 09/11/19 Insulin Degludec/Liraglutide 50 units SQ DAILY 09/11/19 [Xultophy 100 Unit-3.6MG/ml Pen] Meloxicam [Mobic] 15 mg PO DAILY 09/11/19 Potassium Chloride [Klor-Con] 20 meq PO BID 09/11/19 Ranitidine [Zantac] 300 mg PO DAILY 09/11/19 Warfarin [Coumadin ([facility])] 7 mg PO QODAY 09/11/19 Surgical History: - - Lumbar laminectomy and fusion x 2, LLE surgery for clot retrieval with follow-up I&D x2 for infection, recent right great toe surgery as well as follow-up balloon angioplasties per vascular surgery during recent admission. Psychiatric History: No pertinent psych hx Lives: Spouse/ Significant Other Smoking Status: Former smoker - Patient smokes 1 to 1.5 pack/day cigarette tobacco usage since his youth, quit recently during prior admission. Tobacco Use: Non-smoker Alcohol: None Drugs: None - *Family History Paternal History Items: Diabetes Maternal History Items: Diabetes, Heart Disease, Hypertension, - - History of brain aneurysms. Review of Systems Constitutional: Reports: Fatigue. Denies: Anorexia, Chills, Fever, Malaise, Weakness, Weight Change HEENT: Denies: Head Aches, Sinus Congestion, Sinus Drainage Cardiovascular: Denies: Chest Pain, Palpitations Respiratory: Denies: Cough, Shortness of Breath, Shortness of breath at rest, Shortness of breath upon exertion, Sputum production Gastrointestinal: Denies: Abdominal Pain, Nausea, Vomiting Genitourinary: Denies: Dysuria Musculoskeletal: Reports: Back Pain, Joint Pain. Denies: Joint Tenderness Skin: Reports: Skin Changes, Wounds. Denies: Rash Neurological: Denies: Numbness, Tingling, Focal weakness Psychiatric: Denies: Anxiety, Depression, Homicidal Ideations, Suicidal Ideations Hematologic/ Lymphatic: Reports: Easy Bruising, Easy Bleeding VTE Information - Inpt Only VTE Present on Admission: No VTE Mechan Device Prophylaxis: SCD's VTE Pharm Prophylaxis ordered?: No Reason prophylaxis not ordered:: Treatment Not Indicated - Coumadin held, admission INR 3.1, may need reverse pending operative intervention timeline. Patient Problems: Active and Suspected Problems (Last Updated 09/10/19 @ 10:05 by Allie Hobbs) Diabetic foot infection (Acute) Osteomyelitis (Acute) Subjective: Seated upright in the ED, no acute distress, notes throbbing to the right foot, irritable at the setback but understands need for admission. Objective: Physical Examination: General: awake, alert, oriented x 3 and cooperative, seated upright in the ED bed in no apparent distress but notes ongoing right foot discomfort described as throbbing but mild. Skin: normal color, turgor, no icterus, cyanosis except noted bilateral lower extremity venous stasis skin changes, post right great toe resection, operative region with mild discharge, edema present, erythema, tenderness to palpation, no specific foul odor. HEENT: AT/NC, EOMI, PERRLA, MMM, no carotid bruits or JVD noted. Lungs: Diminished breath sounds laterally, greater bilateral bases, moderate effort, no rales, ronchi or wheezing. Heart: Mildly tachycardic with regular rhythm; no gallop, rub audible. Abdomen: soft, obese, NTTP, ND, normal BS, no HSM. Extremities: no cyanosis, clubbing, see skin. Neurological: patient awake, alert, oriented x 3; cognitive function intact; pupils equally reactive to light and accomodation; cranial nerves II-XII grossly normal, moving all 4 extremities, no focal deficits, strength moderately global decrease secondary to acute presentation and complaints. Psychiatric: affect appears mildly irritable at setback, notes ongoing throbbing discomfort to the right foot, no acute evidence of depressive or anxiety feelings. - Physical Exam Vitals/I&O's: Vital Signs Temp Pulse Resp BP Pulse Ox 97.9 F 100 18 140/80 H 97 09/11/19 11:56 09/11/19 11:56 09/11/19 11:56 09/11/19 11:56 09/11/19 11:56 Oxygen Delivery Method Room Air Weight: 215 lb Body Mass Index (BMI) 29.9 Finger Stick Blood Glucose 239 Laboratory Results 09/11/19 12:10: WBC 6.7, RBC 4.18 L, Hgb 11.8 L, Hct 36.8 L, MCV 88.0, MCH 28.2, MCHC 32.1, RDW Std Deviation 43.3, RDW Coeff of Estrada 13.4, Plt Count 242, MPV 9.9, Immature Gran % (Auto) 0.800, Neut % (Auto) 64.3, Lymph % (Auto) 26.1, [place] % (Auto) 7.1, Eos % (Auto) 1.1, Baso % (Auto) 0.6, Absolute Neuts (auto) 4.3, Absolute Lymphs (auto) 1.74, Nucleated RBC % 0, ESR 72 H 09/11/19 12:10: Sodium 136, Potassium 4.0, Chloride 105, Carbon Dioxide 23.0, Anion Gap 8, BUN 8, Creatinine 0.84, Estim Creat Clear Calc 92.13, Est GFR (MDRD) Af Amer 117, Est GFR (MDRD) Non-Af 96, BUN/Creatinine Ratio 9.5 L, Glucose 261 H, Calcium 8.5, C-React Prot Ext Range 114.00 H Current Medications Ceftriaxone Sodium (Rocephin) 1 gm in 50 mls @ 100 mls/hr IV X1 ONE Stop: 09/11/19 13:38 Assessment/Plan All Active Problems (Last Updated 09/10/19 @ 10:05 by Allie Hobbs) Diabetic foot infection (Acute) Osteomyelitis (Acute) Screen for colon cancer (Acute) Diabetic foot infection (Acute) Gangrene of toe (Acute) Diabetic ulcer of right foot (Acute) Osteomyelitis (Acute) PVD (peripheral vascular disease) (Acute) Type 2 diabetes mellitus with diabetic polyneuropathy (Acute) Ulcer of right foot with fat layer exposed (Acute) Type 2 diabetes mellitus with diabetic polyneuropathy (Acute) PVD (peripheral vascular disease) (Acute) The patient is a 68 y/o M w/ PMHx: Chronic pain syndrome s/p back surgery x 2, Hx BL LE DVT, Chronic COPD, HTN, HLD, Diabetes mellitus type II (HgbA1c 10), OA, GERD, Former Tobacco use, PAD, recent 07/17/20 admission w/ R great toe amputation w/ osteomyelitis, R SFA-pop balloon angioplasty who now re-presents to the [facility] ED on 09/11/19 as [facility] referral w/ hx last dressing change 48 hours prior to current presentation with no fevers or chills but onset following removal dressing today of postoperative region erythema, mild drainage from the recent first great toe resection site, edema and throbbing 3-5 out of 10 pain. 1. Diabetic Right Foot s/p recent R Great Toe Resection, Infection: Will admit to [facility], maintain on IV vanc and zosyn, will obtain Wound Cx, will obtain Wound MRSA PCR, elevated SED and CRP, continue affected extremity elevation above heart when seated and in bed, monitor erythema outline with VS checks, Vanc and Zosyn initiation, infectious disease and podiatry consultation pending. PRN pain, nausea regimen, offloading w/ NWB to affected extremity. 2. Diabetes mellitus type II, uncontrolled: Hemoglobin A1c most recently 10%, transitioning to lantus equivalent, accu-checks with insulin sliding scale overlap, still planned follow-up with Dr. Carson, had recent visit scheduled but missed secondary to hospitalization. 3. Chronic COPD: ATC duonebs, PRN albuterol, HOB, IS parameters. 4. PVD, PAD: s/p recent RLE balloon angioplasty SFA and the popliteal, given planned operative intervention will temporarily hold Coumadin and Plavix, INR 3.1 upon presentation, given history of DVTs with plan transition to heparin drip once appropriate, add back Plavix immediately once cleared per podiatry, continue statin therapy, BP regimen, diabetic regimen. 5. Hypertension: Continue home regimen including diltiazem, PRN hydralazine. 6. Hyperlipidemia: Continue home statin regimen. 7. History DVTs: INR obtained following admission, 3.1, holding Coumadin as operative intervention likely, once appropriate transition to heparin drip given history of DVTs. 8. GERD: Famotidine. 9. BEATRICE: Noted in prior [employer] reports, notes outpatient assessment negative. 10. History of Tobacco Abuse: History of 1 to 1.5 pack/day x 35 years, encouraged continued cessation, quit during recent prior admission. 11. DVT prophylaxis: SCDs, INR 3.1, holding Coumadin as noted planned operative intervention likely. 12. CODE status: Patient HCPOA is his spouse who is present and living will is currently in place. Discussed CODE status at length including difference between FULL code, DNR-CCA and DNR-CC status. Following discussions about the differences in these status, requested Full Code status. Advanced Care Planning Face to Face Time: 16 minutes. Code Visit Inpatient E&M: 79140 Init Hosp L3 Procedures: 61334 Advncd Care Plan 30 Min
--- NOTE | 2019-09-11 13:45 | NURSING ---
med surg white osteomyelitis
[2019-09-11] MEDS: Ceftriaxone 1 GM/50 ML BAG IV (14:26)
[2019-09-11 15:45] LABS: International Normalized Ratio 3.1; Prothrombin Time (Protime)PT. 31.8 SECONDS (11.7-14.9)
[2019-09-11 15:46] LABS: Partial Thromboplast Time 70.8 Seconds (24.1-36.2)
--- NOTE | 2019-09-11 16:29 | PCM.CONS.GEN ---
Problem List (1) Right foot infection Status: Acute (2) Ulcer of right foot with necrosis of bone Status: Chronic (3) Osteomyelitis Status: Suspected (4) Abscess of right foot Status: Suspected (5) Type 2 diabetes mellitus with diabetic polyneuropathy Status: Chronic Reason for Consult Date of Consultation: 09/11/19 Reason for Consultation: Right foot redness and infection History of Present Illness: The patient is a 68 year old M with multiple comorbidities was seen in the emergency room and wound center earlier today for infected ulcer. He was previously having a wound VAC changed and he had progressive and discomfort over the past day. He denies known odor or trauma. He denies fever, nausea, vomiting, loss of appetite. He just ate dinner. He does have chills. He denies calf pain. He did have a previous hallux amputation performed by Dr. Barney on July 18, 2019 and subsequent vascular surgery intervention performed with Dr. Shah on July 25, 2019. Past Medical History Past Medical History (Chronic Problems): Chronic Problems (Last Updated 09/10/19 @ 10:05 by Allie Hobbs) 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) Lumbar spinal stenosis (Chronic) Obstructive sleep apnea (Chronic) Scabies infestation (Chronic) DVT (deep venous thrombosis) (Chronic) Tobacco abuse (Chronic) GERD (gastroesophageal reflux disease) (Chronic) Neuropathy (Chronic) Hypertension (Chronic) COPD (chronic obstructive pulmonary disease) (Chronic) Peripheral vascular disease (Chronic) Hyperlipidemia (Chronic) Erectile dysfunction (Chronic) Diabetes mellitus (Chronic) IDDM (insulin dependent diabetes mellitus) (Chronic) Medical History: Medical History (Last Updated 09/10/19 @ 10:05 by Allie Hobbs) Screen for colon cancer (Acute) Z12.11 Diabetic foot infection (Acute) E11.628, L08.9 Gangrene of toe (Acute) I96 Diabetic ulcer of right foot (Acute) E11.621, L97.519 Osteomyelitis (Acute) M86.9 Type 2 diabetes mellitus with diabetic polyneuropathy (Acute) E11.42 PVD (peripheral vascular disease) (Acute) I73.9 Lumbar spinal stenosis (Chronic) M48.06 Obstructive sleep apnea (Chronic) G47.33 Scabies infestation (Chronic) DVT (deep venous thrombosis) (Chronic) Tobacco abuse (Chronic) Z72.0 GERD (gastroesophageal reflux disease) (Chronic) K21.9 Neuropathy (Chronic) G62.9 Hypertension (Chronic) I10 COPD (chronic obstructive pulmonary disease) (Chronic) J44.9 Peripheral vascular disease (Chronic) I73.9 Hyperlipidemia (Chronic) E78.5 Erectile dysfunction (Chronic) N52.9 Diabetes mellitus (Chronic) E11.9 IDDM (insulin dependent diabetes mellitus) (Chronic) E11.9, Z79.4 Back problem M53.9 Bleeding disorder D69.9 Allergies No Known Allergies Allergy (Verified 09/11/19 11:58) Home Medications: Ambulatory Orders Medication Instructions Recorded Diltiazem 180 mg PO DAILY 09/26/13 Gabapentin [Neurontin] 600 mg PO TID 09/26/13 Warfarin [Coumadin] 8 mg PO QODAY 11/06/15 Zolpidem Tartrate [Ambien] 10 mg PO QHS 11/06/15 Omeprazole [Prilosec] 40 mg PO DAILY 03/13/18 Multivitamin [Daily Multiple 1 ea PO DAILY 07/17/19 Vitamin] Aspirin [Aspirin, Baby] 81 mg PO DAILY@0800 09/11/19 Clopidogrel Bisulfate [Plavix] 75 mg PO DAILY 09/11/19 Insulin Degludec/Liraglutide 50 units SQ DAILY 09/11/19 [Xultophy 100 Unit-3.6MG/ml Pen] Meloxicam [Mobic] 15 mg PO DAILY 09/11/19 Potassium Chloride [Klor-Con] 20 meq PO BID 09/11/19 Ranitidine [Zantac] 300 mg PO DAILY 09/11/19 Warfarin [Coumadin ([facility])] 7 mg PO QODAY 09/11/19 Surgical History: - - Lumbar laminectomy and fusion x 2, LLE surgery for clot retrieval with follow-up I&D x2 for infection. Psychiatric History: No pertinent psych hx Smoking Status: Former smoker Tobacco Use: Cigarettes - *Family History Paternal History Items: Diabetes Maternal History Items: Diabetes, Heart Disease, Hypertension, - - History of brain aneurysms. Review of Systems Constitutional: Reports: Chills. Denies: Fever, Fatigue Musculoskeletal: Reports: Back Pain, Foot Pain. Denies: Leg Pain Skin: Reports: Wounds Neurological: Reports: Numbness, Tingling Hematologic/ Lymphatic: Reports: Hx of blood clot Patient Problems: Active and Suspected Problems (Last Updated 09/10/19 @ 10:05 by Allie Hobbs) Diabetic foot infection (Acute) Osteomyelitis (Acute) Right foot infection (Acute) Osteomyelitis (Suspected) Abscess of right foot (Suspected) - Physical Exam Vitals/I&O's: Vital Signs Temp Pulse Resp BP Pulse Ox 98 F 114 H 20 H 165/95 H 100 09/11/19 15:29 09/11/19 15:29 09/11/19 15:29 09/11/19 15:29 09/11/19 15:29 Oxygen Delivery Method Room Air Weight: 100.924 kg Body Mass Index (BMI) 31.0 Finger Stick Blood Glucose 239 Intake and Output for Last 24 Hours 09/09/19 09/10/19 09/11/19 23:59 23:59 23:59 Intake Total 50 / 50 Balance 50 / 50 General: Alert, Oriented x3, Cooperative HEENT: Atraumatic Extremities: No cyanosis, Capillary Refill Less than 3 Seconds, No Calf Tenderness - Negative Jarett and Warren sign bilateral. Compartments are soft to palpate bilateral foot ankle and leg, Diminished Peripheral Pulses, Edema - Right lower extremity more than left lower extremity Skin: Ulcer/ Wound - There is an ulcer at his previous hallux amputation stump site which measures approximately 1.0 x 2.3 x 0.4 cm. This is approximately 2 cc of purulent drainage on expression that does not appear to be tracking however he has diffuse pain on palpation to the arch and dorsal foot. There is positive probe to bone which is the first metatarsal head and is not directly visualized. There is erythema extending to the dorsal aspect of its entire foot to the hindfoot and this is not streak further into the ankle or leg. There is no other interdigital maceration or necrosis noted. His skin is hairless, atrophic, and thin Musculoskeletal: No Tenderness to Palpation of Joints or Extremities, Muscle Wasting, - - Hallux amputation Neurological: - - Lack of normal epicritic sensation light touch is consistent with his neuropathy status Psych/Mental Status: Normal Affect, Appropriate Laboratory Results 09/11/19 12:10: WBC 6.7, RBC 4.18 L, Hgb 11.8 L, Hct 36.8 L, MCV 88.0, MCH 28.2, MCHC 32.1, RDW Std Deviation 43.3, RDW Coeff of Estrada 13.4, Plt Count 242, MPV 9.9, Immature Gran % (Auto) 0.800, Neut % (Auto) 64.3, Lymph % (Auto) 26.1, Adams % (Auto) 7.1, Eos % (Auto) 1.1, Baso % (Auto) 0.6, Absolute Neuts (auto) 4.3, Absolute Lymphs (auto) 1.74, Nucleated RBC % 0, ESR 72 H 09/11/19 12:10: Sodium 136, Potassium 4.0, Chloride 105, Carbon Dioxide 23.0, Anion Gap 8, BUN 8, Creatinine 0.84, Estim Creat Clear Calc 92.13, Est GFR (MDRD) Af Amer 117, Est GFR (MDRD) Non-Af 96, BUN/Creatinine Ratio 9.5 L, Glucose 261 H, Calcium 8.5, C-React Prot Ext Range 114.00 H 09/11/19 12:10: PT 31.8 H, INR 3.1, APTT 70.8 H Current Medications Acetaminophen (Tylenol) 650 mg PO Q6H PRN PRN PRN Reason: Pain Score 1-10/Temp > 100.7 F Al Hydroxide/Mg Hydroxide (Mylanta Ii) 30 ml PO Q6H PRN PRN PRN Reason: Gastric Burning Albuterol Sulfate (Ventolin Aerosols) 2.5 mg INHALATION Q2H PRN PRN PRN Reason: dyspnea, wheezing Albuterol/Ipratropium (Duoneb) 3 ml INHALATION Q6HWA.RT [facility] Atorvastatin Calcium (Lipitor) 40 mg PO QHS [facility] Diltiazem HCl (Cardizem Cd) 180 mg PO DAILY [facility] Gabapentin (Neurontin) 600 mg PO TIDCM [facility]A Glucagon () 1 mg IM .X1 PRN PRN Reason: Hypoglycemia Guaifenesin (Robitussin) 20 ml PO Q4H PRN PRN PRN Reason: COUGH Hydralazine HCl (Apresoline Iv) 10 mg IV Q4H PRN PRN PRN Reason: SBP > 160 Vancomycin IV Pharmacy to Dose (1 ea/ Sodium Chloride) 500 mls @ 250 mls/hr IV X1 PRN; Protocol PRN Reason: Rx to Dose Piperacillin Sod/Tazobactam (Sod 3.375 gm/ Sodium Chloride) 50 mls @ 12.5 mls/hr IV Q8 [facility] Sodium Chloride () 500 mls @ 999 mls/hr IV .Q31M ONE Stop: 09/11/19 16:41 Sodium Chloride () 1,000 mls @ 100 mls/hr IV .Q10H [facility] Dextrose (Dextrose 10%-Water) 250 mls @ 999 mls/hr IV .Q16M PRN; Protocol PRN Reason: HYPOGLYCEMIA Insulin Human Lispro (Humalog Kwikpen (Bkc)) 0 unit SC ACHS [facility]; Protocol Lisinopril (Zestril) 20 mg PO DAILY [facility] Magnesium Hydroxide (Milk Of Magnesia) 30 ml PO DAILY PRN PRN PRN Reason: Constipation Melatonin (Melatonin) 3 mg PO QHS PRN PRN PRN Reason: INSOMNIA Morphine Sulfate () 2 mg IV Q3H PRN PRN PRN Reason: Pain Score 6-10/10 Multivitamins (Multivitamin) 1 tablet PO DAILY@0800 [facility] Nitroglycerin (Nitrostat) 0.4 mg SUBLINGUAL Q5M PRN PRN Reason: CARDIAC/CHEST PAIN Non-Formulary Medication (Roflumilast) 500 mcg PO DAILY [facility] Non-Formulary Medication (Potassium Chloride [Klor-Con]) 20 meq PO BID [facility] Non-Formulary Medication (Insulin Degludec/Liraglutide) 50 units SQ DAILY [facility] Nutritional Formula (Lactose Free) (Glucerna Shake) 120 ml PO 4X/DAY [facility] Ondansetron HCl (Zofran) 4 mg IV Q8H PRN PRN PRN Reason: NAUSEA/VOMITING Oxycodone HCl (Oxyir) 5 mg PO Q4H PRN PRN PRN Reason: Pain Score 4-5/10 Pantoprazole Sodium (Protonix) 40 mg PO DAILY [facility] Potassium Chloride (K-Dur) 20 meq PO TID [facility] Prochlorperazine Edisylate (Compazine Iv) 5 mg IV Q4H PRN PRN PRN Reason: Breakthrough nausea/vomiting Psyllium Hydrophilic Mucilloid (Metamucil) 1 packet PO DAILY PRN PRN PRN Reason: Constipation Senna/Docusate Sodium (Senokot-S, Donna-Colace) 2 tablet PO BID PRN PRN PRN Reason: Constipation Sodium Chloride () 10 - 40 ml IV UD PRN PRN Reason: SALINE FLUSH Throat Lozenges (Cepacol Sore Throat Lozenge) 1 lozenge MUCOUS MEM Q2H PRN PRN PRN Reason: SORE THROAT Zolpidem Tartrate (Ambien (Generic)) 10 mg PO QHS [facility] Assessment/Plan All Active Problems (Last Updated 09/10/19 @ 10:05 by Allie Hobbs) Diabetic foot infection (Acute) Osteomyelitis (Acute) Right foot infection (Acute) Screen for colon cancer (Acute) Diabetic foot infection (Acute) Gangrene of toe (Acute) Diabetic ulcer of right foot (Acute) Osteomyelitis (Acute) PVD (peripheral vascular disease) (Acute) Type 2 diabetes mellitus with diabetic polyneuropathy (Acute) Ulcer of right foot with fat layer exposed (Acute) Type 2 diabetes mellitus with diabetic polyneuropathy (Acute) PVD (peripheral vascular disease) (Acute) Right foot infection with suspected osteomyelitis and abscess Delayed healing for right foot ulcer at prior hallux amputation site now with bone exposed Chronic uncontrolled diabetes (hemoglobin A1c of 13.3% on June 2019) Other comorbidities include the following: chronic pain syndrome s/p back surgery, history of bilateral lower extremity deep venous thrombosis, chronic COPD, hypertension, hyperlipidemia, arthritis, GERD, former tobacco user, peripheral arterial disease now status post intervention I reviewed and discussed his case. His diagnostic data was reviewed and he is afebrile and his vital signs are stable. He does demonstrate some tachycardia at this time. He does not have any leukocytosis and his white blood cell count was 6.7. His ESR is elevated at 72 and C-reactive protein was 114. His 3 foot x-rays do not demonstrate any soft tissue emphysema, foreign body, fracture, dislocation, Charcot, or osseous destruction adjacent to the ulcer site. Clinically there is purulence on expression and his foot does have erythema. I do recommend an MRI to evaluate for osteomyelitis and also abscess for potential surgical planning. Surgery may be warranted pending his clinical response on antibiotics and his MRI results. He started on IV vancomycin and Zosyn. Deep wound cultures were obtained after the site was irrigated copiously with normal saline. This was sent for aerobic, anaerobic, and MRSA PCR. In the meantime I recommend he maintains a nonweightbearing status to the right lower extremity. A dressing was reapplied with Betadine with gauze. I recommend he is placed on n.p.o. status at midnight and hold anticoagulation medication. It is noted he is on Coumadin and Plavix at home. The decision for surgery will be made tomorrow morning. The patient understands he is at risk for continued limb loss, worsening systemic illness, and even due to his condition. Medical management per hospitalist service is greatly appreciated. I answered his questions. Thank you for the consultation. Please not hesitate to call me with any questions. Jordyn Meyers DPM, [facility] [phone]
[2019-09-11] MEDS: 0.9% Normal Saline 1,000 ML 100 ML IV (17:13)
[2019-09-11 17:25] LABS: Bedside Glucose 327 mg/dL (70-110)
[2019-09-11] MEDS: Insulin Lispro 100 UNIT/ML INSULN.PEN SC ×2 (17:29→21:09)
[2019-09-11] MEDS: Gabapentin 600 MG Tablet PO (17:30)
[2019-09-11] MEDS: dilTIAZem CD 180 MG Capsule PO (17:32)
[2019-09-11] MEDS: Glucerna Shake 120 ML LIQUID PO ×2 (17:33→21:09)
[2019-09-11 17:34] LABS: Lactic Acid 1.6 mmol/L (0.4-1.9)
--- NOTE | 2019-09-11 18:28 | PCM.RX.CS ---
Consult Pharmacy has been consulted to manage selected antiobiotic: Vancomycin Type of Consult: New start Suspected Infection: Skin/Soft tissue, Other - possible osteomyelitis Labs: Sodium 136 mmol/L (136-145) 09/11/19 12:10 Potassium 4.0 mmol/L (3.5-5.1) 09/11/19 12:10 Chloride 105 mmol/L (98-107) 09/11/19 12:10 Carbon Dioxide 23.0 mmol/L (21.0-32.0) 09/11/19 12:10 Anion Gap 8 (5-15) 09/11/19 12:10 BUN 8 mg/dL (7-18) 09/11/19 12:10 Creatinine 0.84 mg/dL (0.70-1.30) 09/11/19 12:10 Est GFR (MDRD) Af Amer 117 mL/min (>60) 09/11/19 12:10 Est GFR (MDRD) Non-Af 96 mL/min (>60) 09/11/19 12:10 BUN/Creatinine Ratio 9.5 RATIO (10-20) L 09/11/19 12:10 Glucose 261 mg/dL (74-106) H 09/11/19 12:10 Weight used for dosin.9 kg Estimated Creatinine Clearance: 105 ML/MIN Goal Trough: 15-20 mcg/mL Pharmacy Plan for Drug Dosing: Give initial loading dose of 2000mg IV x1, then continue with 1250mg IV q8h as per the pharmacist dosing protocol. Will obtain a vanc trough level before the 4th total dose tomorrow. The patient's CrCl of 105ml/min was calculated using an adjusted body weight of 85.5kg. Pharmacy Service will continue to monitor and adjust dosing as required. Follow-Up Labs: Trough Vancomycin Labs to be done on [date and time ordered]: 09/12/19 17:30
[2019-09-11 18:36] LABS: M R Staph aureus DNA By PCR Negative (Negative); Probe Check PASS; Staph aureus DNA By PCR POSITIVE (Negative)
[2019-09-11] MEDS: Zolpidem Tartrate 5 MG Tablet 10 MG PO (21:08)
[2019-09-11] MEDS: Atorvastatin Calcium 40 MG Tablet PO (21:09)
[2019-09-11] MEDS: oxyCODONE 5 MG Tablet PO (21:09)
[2019-09-11] MEDS: hydrALAZINE 20 MG/ML Vial 10 MG IV (21:09)
[2019-09-11 21:31] LABS: Bedside Glucose 266 mg/dL (70-110)
[2019-09-12] VITALS (18 sets, daily range): BP systolic 107–170; BP diastolic 70–95; PULSE 82–128; RESP 16–20; TEMP 36.7–37.6; O2SAT 94–98; BMI 31.0
[2019-09-12 06:35] LABS: Absolute Lymphocyte Count 1.61 X10^3/uL (0.83-4.51); Absolute Neutrophil Count 4.1 X10^3/uL (2.0-7.7); Basophil# 0.03 X10^3/uL; Basophil% 0.5 % (0-1); Eosinophil# 0.11 X10^3/uL; Eosinophils% 1.7 % (0-5); Hematocrit 36.6 % (40-54); Hemoglobin 11.6 g/dL (13.0-16.5); Lymphocyte # 1.61 X10^3/ul (4.0); Lymphocyte % 25.1 % (19-41); Mean Corp Hgb Conc 31.7 g/dL (32-36); Mean Corpuscular Hgb 28.2 pg (27.0-32.0); Mean Corpuscular Volume 88.8 fL (80-94); Mean Platelet Vol. 9.8 fl (6.2-12.0); Monocyte# 0.57 X10^3/uL; Monocyte% 8.9 % (0-10); NRBC Flagged by Analyzer 0 % (0-5); Neutrophil # 4.06 X10^3/uL (2.7-7.7); Neutrophil % 63.3 % (47-70); Platelet Count 240 K/mm3 (150-450); RBC Distribution Width CV 13.4 % (11.6-14.6); RBC Distribution Width SD 43.7 fl (35.1-43.9); Red Blood Count 4.12 M/mm3 (4.6-6.2); White Blood Count 6.4 K/mm3 (4.4-11.0)
[2019-09-12 06:44] LABS: International Normalized Ratio 2.1; Prothrombin Time (Protime)PT. 23.3 SECONDS (11.7-14.9)
[2019-09-12 06:46] LABS: Partial Thromboplast Time 57.3 Seconds (24.1-36.2)
[2019-09-12] MEDS: 0.9% Normal Saline 1,000 ML 100 ML IV ×2 (06:46→13:29)
[2019-09-12] MEDS: Insulin Lispro 100 UNIT/ML INSULN.PEN SC ×3 (06:48→21:06)
[2019-09-12 06:56] LABS: Bedside Glucose 173 mg/dL (70-110)
[2019-09-12 06:57] LABS: Anion Gap 7 (5-15); BUN 8 mg/dL (7-18); BUN/Creat Ratio 11.8 RATIO (10-20); Calcium,Total 8.3 mg/dL (8.5-10.1); Chloride 106 mmol/L (98-107); Creatinine, Serum 0.68 mg/dL (0.70-1.30); EST Glomerular Filtration Rate 124 mL/min (>60); Est Glom Filt Rate - Afr Amer 150 mL/min (>60); Estimated Creatinine Clearance 77.39 ml/min; Glucose 158 mg/dL (74-106); Potassium 3.8 mmol/L (3.5-5.1); Sodium Level 136 mmol/L (136-145)
[2019-09-12] MEDS: Ipratropium/Albuterol Sulfate 3 ML AMPUL.NEB INHALATION ×2 (07:22→19:51)
--- NOTE | 2019-09-12 07:42 | PN_ITS ---
Patient Problems: Active and Suspected Problems (Last Updated 09/10/19 @ 10:05 by Allie Hobbs) Diabetic foot infection (Acute) Osteomyelitis (Acute) Right foot infection (Acute) Osteomyelitis (Suspected) Abscess of right foot (Suspected) Subjective: The patient is a 68 year old M with multiple comorbidities was seen this morning for follow-up of right foot infection. He has continued pain overnight and denies fever, chill, nausea, vomiting. He is about to have his MRI completed. - Physical Exam Vitals/I&O's: Vital Signs Temp Pulse Resp BP Pulse Ox 98.7 F 106 H 19 H 123/77 H 98 09/12/19 07:35 09/12/19 07:35 09/12/19 07:35 09/12/19 07:35 09/12/19 07:35 Oxygen Delivery Method Room Air Weight: 100.924 kg Body Mass Index (BMI) 31.0 Finger Stick Blood Glucose 239 Intake and Output for Last 24 Hours 09/10/19 09/11/19 09/12/19 23:59 23:59 23:59 Intake Total 1208.33 / 1208.33 1228.33 / 1228.33 Output Total 1575 / 1575 Balance 1208.33 / 1208.33 -346.67 / -346.67 General: Alert, Oriented x3, Cooperative Extremities: Capillary Refill Less than 3 Seconds - All digits right foot, No Calf Tenderness - Negative Jarett and Warren sign and compartments are soft to palpate right, Diminished Peripheral Pulses, Edema, - - Open hallux amputation Skin: Ulcer/ Wound - The open hallux amputation site still has seropurulent drainage that is reduced from yesterday and noted on the wick gauze packing. He does have some decreased erythema and edema however this does still extend to the midfoot area. There is reduced odor. There is positive probe to bone of the first metatarsal head Musculoskeletal: No Tenderness to Palpation of Joints or Extremities, Muscle Wasting Neurological: - - is not fully normal and this is consistent with neuropathy Psych/Mental Status: Normal Affect - He does have some sensation to light touch however, Appropriate Laboratory Results 09/11/19 12:10: WBC 6.7, RBC 4.18 L, Hgb 11.8 L, Hct 36.8 L, MCV 88.0, MCH 28.2, MCHC 32.1, RDW Std Deviation 43.3, RDW Coeff of Estrada 13.4, Plt Count 242, MPV 9.9, Immature Gran % (Auto) 0.800, Neut % (Auto) 64.3, Lymph % (Auto) 26.1, Marquette % (Auto) 7.1, Eos % (Auto) 1.1, Baso % (Auto) 0.6, Absolute Neuts (auto) 4.3, Absolute Lymphs (auto) 1.74, Nucleated RBC % 0, ESR 72 H 09/11/19 12:10: Sodium 136, Potassium 4.0, Chloride 105, Carbon Dioxide 23.0, Anion Gap 8, BUN 8, Creatinine 0.84, Estim Creat Clear Calc 92.13, Est GFR (MDRD) Af Amer 117, Est GFR (MDRD) Non-Af 96, BUN/Creatinine Ratio 9.5 L, Glucose 261 H, Calcium 8.5, C-React Prot Ext Range 114.00 H 09/11/19 12:10: PT 31.8 H, INR 3.1, APTT 70.8 H 09/11/19 16:30: S.aureus Protein A PCR POSITIVE H, MRSA (PCR) Negative 09/11/19 16:38: Lactic Acid 1.6 09/11/19 17:21: POC Glucose 327 H 09/11/19 21:08: POC Glucose 266 H 09/12/19 06:04: WBC 6.4, RBC 4.12 L, Hgb 11.6 L, Hct 36.6 L, MCV 88.8, MCH 28.2, MCHC 31.7 L, RDW Std Deviation 43.7, RDW Coeff of Estrada 13.4, Plt Count 240, MPV 9.8, Immature Gran % (Auto) 0.500, Neut % (Auto) 63.3, Lymph % (Auto) 25.1, Marquette % (Auto) 8.9, Eos % (Auto) 1.7, Baso % (Auto) 0.5, Absolute Neuts (auto) 4.1, Absolute Lymphs (auto) 1.61, Nucleated RBC % 0 09/12/19 06:04: PT 23.3 H, INR 2.1, APTT 57.3 H 09/12/19 06:04: Sodium 136, Potassium 3.8, Chloride 106, Carbon Dioxide 23.0, Anion Gap 7, BUN 8, Creatinine 0.68 L, Estim Creat Clear Calc 77.39, Est GFR (MDRD) Af Amer 150, Est GFR (MDRD) Non-Af 124, BUN/Creatinine Ratio 11.8, Gluc ose 158 H, Calcium 8.3 L 09/12/19 06:47: POC Glucose 173 H Current Medications Acetaminophen (Tylenol) 650 mg PO Q6H PRN PRN PRN Reason: Pain Score 1-10/Temp > 100.7 F Al Hydroxide/Mg Hydroxide (Mylanta Ii) 30 ml PO Q6H PRN PRN PRN Reason: Gastric Burning Albuterol Sulfate (Ventolin Aerosols) 2.5 mg INHALATION Q2H PRN PRN PRN Reason: dyspnea, wheezing Albuterol/Ipratropium (Duoneb) 3 ml INHALATION Q6HWA.RT [facility] Last Admin: 09/12/19 07:22 Dose: 3 ml Documented by: Atorvastatin Calcium (Lipitor) 40 mg PO QHS [facility] Last Admin: 09/11/19 21:09 Dose: 40 mg Documented by: Diltiazem HCl (Cardizem Cd) 180 mg PO DAILY [facility] Last Admin: 09/11/19 17:32 Dose: 180 mg Documented by: Gabapentin (Neurontin) 600 mg PO TIDCM [facility] Last Admin: 09/11/19 17:30 Dose: 600 mg Documented by: Glucagon () 1 mg IM .X1 PRN PRN Reason: Hypoglycemia Guaifenesin (Robitussin) 20 ml PO Q4H PRN PRN PRN Reason: COUGH Hydralazine HCl (Apresoline Iv) 10 mg IV Q4H PRN PRN PRN Reason: SBP > 160 Last Admin: 09/11/19 21:09 Dose: 10 mg Documented by: Vancomycin IV Pharmacy to Dose (1 ea/ Sodium Chloride) 500 mls @ 250 mls/hr IV X1 PRN; Protocol PRN Reason: Rx to Dose Piperacillin Sod/Tazobactam (Sod 3.375 gm/ Sodium Chloride) 50 mls @ 12.5 mls/hr IV Q8 [facility] Last Admin: 09/12/19 06:46 Dose: 12.5 mls/hr Documented by: Sodium Chloride () 1,000 mls @ 100 mls/hr IV .Q10H [facility] Last Admin: 09/12/19 06:46 Dose: 100 mls/hr Documented by: Dextrose (Dextrose 10%-Water) 250 mls @ 999 mls/hr IV .Q16M PRN; Protocol PRN Reason: HYPOGLYCEMIA Vancomycin HCl 1,250 mg/ (Sodium Chloride) 275 mls @ 167 mls/hr IV Q8H [facility] Last Infusion: 09/12/19 04:09 Dose: Infused Documented by: Insulin Glargine (Lantus ([facility] 50 units SC DAILY [facility] Insulin Human Lispro (Humalog Kwikpen ([facility] 0 unit SC ACHS [facility]; Protocol Last Admin: 09/12/19 06:48 Dose: 1 units Documented by: Lisinopril (Zestril) 20 mg PO DAILY [facility] Magnesium Hydroxide (Milk Of Magnesia) 30 ml PO DAILY PRN PRN PRN Reason: Constipation Melatonin (Melatonin) 3 mg PO QHS PRN PRN PRN Reason: INSOMNIA Morphine Sulfate () 2 mg IV Q3H PRN PRN PRN Reason: Pain Score 6-10/10 Multivitamins (Multivitamin) 1 tablet PO DAILY@0800 [facility] Nitroglycerin (Nitrostat) 0.4 mg SUBLINGUAL Q5M PRN PRN Reason: CARDIAC/CHEST PAIN Nutritional Formula (Lactose Free) (Glucerna Shake) 120 ml PO 4X/DAY [facility] Last Admin: 09/11/19 21:09 Dose: 120 ml Documented by: Ondansetron HCl (Zofran) 4 mg IV Q8H PRN PRN PRN Reason: NAUSEA/VOMITING Oxycodone HCl (Oxyir) 5 mg PO Q4H PRN PRN PRN Reason: Pain Score 4-5/10 Last Admin: 09/11/19 21:09 Dose: 5 mg Documented by: Pantoprazole Sodium (Protonix) 40 mg PO DAILY [facility] Potassium Chloride (K-Dur) 20 meq PO BID [facility] Last Admin: 09/11/19 21:09 Dose: 20 meq Documented by: Prochlorperazine Edisylate (Compazine Iv) 5 mg IV Q4H PRN PRN PRN Reason: Breakthrough nausea/vomiting Psyllium Hydrophilic Mucilloid (Metamucil) 1 packet PO DAILY PRN PRN PRN Reason: Constipation Senna/Docusate Sodium (Senokot-S, Donna-Colace) 2 tablet PO BID PRN PRN PRN Reason: Constipation Sodium Chloride () 10 - 40 ml IV UD PRN PRN Reason: SALINE FLUSH Throat Lozenges (Cepacol Sore Throat Lozenge) 1 lozenge MUCOUS MEM Q2H PRN PRN PRN Reason: SORE THROAT Zolpidem Tartrate (Ambien (Generic)) 10 mg PO QHS [facility] Last Admin: 09/11/19 21:08 Dose: 10 mg Documented by: Medical Necessity - Tobacco Use Smoking Status: Former smoker - Patient smokes 1 to 1.5 pack/day cigarette tobacco usage since his youth, quit recently during prior admission. Tobacco Use: Non-smoker Assessment/Plan All Active Problems (Last Updated 09/10/19 @ 10:05 by Allie Hobbs) Diabetic foot infection (Acute) Osteomyelitis (Acute) Right foot infection (Acute) Screen for colon cancer (Acute) Diabetic foot infection (Acute) Gangrene of toe (Acute) Diabetic ulcer of right foot (Acute) Osteomyelitis (Acute) PVD (peripheral vascular disease) (Acute) Type 2 diabetes mellitus with diabetic polyneuropathy (Acute) Ulcer of right foot with fat layer exposed (Acute) Type 2 diabetes mellitus with diabetic polyneuropathy (Acute) PVD (peripheral vascular disease) (Acute) Right foot infection with suspected osteomyelitis and abscess Delayed healing for right foot ulcer at prior hallux amputation site now with bone exposed Chronic uncontrolled diabetes (hemoglobin A1c of 13.3% on June 2019) Other comorbidities include the following: chronic pain syndrome s/p back surgery, history of bilateral lower extremity deep venous thrombosis, chronic COPD, hypertension, hyperlipidemia, arthritis, GERD, former tobacco user, perip heral arterial disease now status post intervention I reviewed and discussed his case. It is noted he did have a low-grade fever overnight however remained stable. He does not have any leukocytosis. His x- rays did not demonstrate any ruthann acute osseous destruction however there was some rarefraction or diminished bone density of the first metatarsal head adjacent to the ulcer site that is a concern. I do recommend an MRI to evaluate for osteomyelitis and also abscess for surgical planning. He was started on IV vancomycin and Zosyn. Deep wound cultures were obtained and the results are pending. I do recommend surgical drainage and likely first ray resection today due to the overall lack of clinical response. He is n.p.o. and his anticoagulation medication has been held. I will review the case with the hospitalist to confirm he is optimized and cleared to go for this nonelective surgery. The patient understands he is at risk for limb loss. He will be consented tentatively for debridement of nonviable soft tissue and bone including first ray resection of the right foot. This may be subject to change pending review of the MRI. The preoperative indication, planned procedure, possible benefits, risk, complications, and anticipated healing time management were discussed in detail the patient. He understands and elects to proceed with surgery at this time. No guarantees were made. He understands risk and complications include but not limited to the following: Continued infection, delayed or nonhealing, chronic pain syndrome, pain, swelling, scarring, need for further surgery, allergic reaction, transfer lesions of calluses or ulcers, loss of limb, function, life. The surgical limb has been signed. This case is tentatively added on for 12 PM and anticipated anesthesia is MAC and local. Please do not hesitate to call me with any questions. Jordyn Meyers DPM, [facility] [phone]
--- NOTE | 2019-09-12 08:00 | MRI_ITS ---
We are attempting to reach an attending provider to discuss findings. An addendum with communication details will be sent when the communication is complete. STUDY: MRI RIGHT MIDFOOT REASON FOR EXAM: Male, 68 years old. abscess, osteo right ffoot, halux amputation 07/25/19 EXAM DESCRIPTION: MRI of the right foot CLINICAL HISTORY: 68 years Male, abscess, osteo right ffoot, halux amputation 07/25/19 COMPARISON: Previous right foot x-rays obtained on 09/11/2019, 07/18/2019 TECHNIQUE: MRIs was performed utilizing axial T1 and T2-weighted images followed by coronal T2 weighted images followed by sagittal T1 and STIR weighted images followed by postcontrast sagittal and axial T1-weighted images through the right foot. FINDINGS: The patient has had an amputation of the distal and proximal phalanx of the great toe. At this time there is significant soft tissue swelling overlying the dorsal and distal aspect of the distal metaphysis of the first metatarsal. A soft tissue ulceration is seen which appears to extend all way down to the distal metaphysis of the first metatarsal. At that point there is significant bone marrow edema and enhancement involving the distal metaphysis of the first metatarsal representing osteomyelitis. This corresponds with bone destruction noted on the right foot x-rays. The osteomyelitis involves the distal metaphysis of the first metatarsal extends into the proximal aspect of the distal metaphysis of the first metatarsal. There is no involvement of the mid and proximal diaphysis and proximal metaphysis of the first metatarsal. The second, third, fourth and fifth metatarsals and phalanges are unremarkable with the described osteomyelitis. Likewise the distal tarsal bones are not involved with bone marrow edema from patient''s osteomyelitis. MRI/Lower Ext No Joint W/WO Cont IMPRESSION: There is a soft tissue ulceration with cellulitis overlying the distal aspect of the first metatarsal. Osteomyelitis is noted involving the distal metaphysis of the first metatarsal, as described above. Electronically Signed: Hima Macdonald, at 10:00 EST Tel , Service support ,
--- NOTE | 2019-09-12 08:36 | EKG12_ITS ---
Test Reason : TACHY Blood Pressure : / mmHG Vent. Rate : 124 BPM Atrial Rate : 124 BPM P-R Int : 156 ms QRS Dur : 076 ms QT Int : 280 ms P-R-T Axes : 036 000 016 degrees QTc Int : 402 ms Sinus tachycardia Inferior infarct , age undetermined Abnormal ECG When compared with ECG of 12-SEP-2019 10:24, MANUAL COMPARISON REQUIRED, DATA IS UNCONFIRMED Confirmed by TIKA CHAPA, SHEN ([id number]), order editor STANISLAV OVIEDO ([id number]) on 09/17/2019 8:55:18 AM Referred By: UZAIR Confirmed By:NUHA VILLELA MD
[2019-09-12 10:05] LABS: Bedside Glucose 198 mg/dL (70-110)
--- NOTE | 2019-09-12 10:15 | CASEMGMT ---
HERMINIA STANFORD Face to Face with patient for initial transition planning/care coordination assessment. HERMINIA STANFORD introduced self and role at [facility]. Patient lying in bed, alert and oriented. Patient willing to participate in assessment and is able to answer all questions appropriately. Care providers, pharmacy, and demographics verified. Patient wishes to discharge home, denies need for home health at this time as his cousin has been changing wound vac dressings and does not want HHC in the home. HERMINIA STANFORD updated patient that we will monitor need for HHC and potential IV ATBs. Patient states he has no further needs or concerns at this time. CM to follow for discharge planning needs that may arise. PCP: David Specialists: [facility] Preferred Pharmacy: [facility] Insurance: [employer] Prescription Benefit: yes Living Will/HPOA: yes, cousin Mariam Bai LNOK: cousin Living Arrangements: Patient lives with cousin in duplex with 13 steps and double railing. Patient able to ambulate stairs. Transportation: Cousin DME/HHC: Patient has shower chair, raised toilet, cane, walker, aroldo, rollator, and knee walker at home. Patient denies HHC. Disposition Plan: Patient to discharge home with assistance from family and follow-up plans in place. Maricel HENDERSON, RN, CM
--- NOTE | 2019-09-12 10:55 | NURSING ---
PT TO OR AT THIS TIME.
[2019-09-12 11:51] LABS: Bedside Glucose 173 mg/dL (70-110)
--- NOTE | 2019-09-12 12:00 | BON_PTH ---
PATIENT: RAPHAEL HADDAD LOC: [facility] U#:[id number] AGE/SX: 68/M ROOM: HI312 RE09/11/[address]: Dr. Greg Cotter DO : 1950 BED: 1 DIS: 09/17/2019 SPEC #: [id number] RECD: 09/12/19 13:44 STATUS: SOUEllen REQ #: [id number] MATIAS: 09/12/19 12:[address]: Jordyn Meyers DEPT: SURGICAL PATHOLOGY RECD BY: Jesús Villegas ENTERED: 09/12/19 13:52 SP TYPE: Bone OTHR DR: MD Dr. Jordyn Barger, DPM DO Dr. John Adame MD Dr. Tai Chi Kwok, MD Tissues: A - Bone of foot, NOS B - Bone of foot, NOS Procedures: Decalcification bone/plaque Surgery Specimen Level III Comments: @ Ordering doctor for DEC edited from to @ cecilio CHAWLA at 09/12/19 1417 @ Ordering doctor for SUIII edited from to @ by CAMMY at 09/12/19 1417 @ Submitting doctor edited from to @ cecilio CHAWLA at 09/12/19 1417 HEADER OPERATION: Right foot drainage and debridement of nonviable soft tissue PRE-OP DIAGNOSIS: Right foot infection, osteomyelitis TISSUE SUBMITTED: A - Right first metatarsal bone, B - Clearance fragment MICROSCOPIC DIAGNOSIS A. Right first metatarsal bone: Pieces of bone with acute osteomyelitis. B. Clearance fragment: A piece of bone with reactive changes, negative for acute osteomyelitis. LEVON:valencia 09/17/19 MICROSCOPIC DESCRIPTION Slides are reviewed. GROSS DESCRIPTION A - Received in fixative is one container labeled with the patient's name and designated right first metatarsal bone. The specimen consists of two pieces of bone measuring 3.5 x 2 x 1.5 cm and 2 x 2 x 1 cm. Wool Batting Worker sections are submitted in two cassettes after decalcification. B - Received in fixative is one container labeled with the patient's name and designated clearance fragment. The specimen consists of a piece of bone measuring 1.5 x 0.5 x 0.1 cm. The specimen is totally submitted in one cassette after decalcification. / LEVON:valencia 09/12/19 TC:2 CPT: 84873 x2, 49130 x2
--- NOTE | 2019-09-12 12:15 | RAD_ITS ---
STUDY: X-RAY - RIGHT FOOT CLINICAL: Male, 68 years old. RIGHT FOOT AMPUTATION TRANS ME, GASTROC RECESSION TECHNIQUE: 3 fluoroscopic spot view(s) of the foot. 3 seconds fluoroscopy time and 0.3107 cGy per centimeter squared. COMPARISON: 2:14 PM FINDINGS: Normal talus, calcaneus, and tarsal bones. Normal visualized subtalar, talonavicular, calcaneocuboid, tarsal and tarsometatarsal articulations. New Amputation mid first metatarsal. Normal metatarsophalangeal joint of the great toe. Normal tibial and fibular sesamoid bones. Normal interphalangeal joint of the great toe. Normal phalanges of the great toe. Normal second through fifth metatarsophalangeal joints. Normal interphalangeal joints and phalanges of the lesser toes. The soft tissue structures are unremarkable. RAD/Foot 2 Views IMPRESSION: New Amputation first metatarsal. Please correlate with clinical service. Electronically Signed: Mike Byrnes MD at 16:40 EST , Service support ,
[2019-09-12] MEDS: Bupivacaine Mpf 0.5% 30 ML VIAL (12:25)
--- NOTE | 2019-09-12 12:58 | PCM.OPRPT ---
Problem List (1) Right foot infection Status: Acute (2) Ulcer of right foot with necrosis of bone Status: Chronic (3) Osteomyelitis Status: Acute Qualifiers: Osteomyelitis type: subacute (4) Type 2 diabetes mellitus with diabetic polyneuropathy Status: Chronic Report of Operation Date of Procedure: 09/12/19 Pre-Operative Diagnosis: Chronic nonhealing right foot ulcer. Subacute osteomyelitis right first metatarsal head Post-Operative Diagnosis: Chronic nonhealing right foot ulcer. Subacute osteomyelitis right first metatarsal head Surgery/Procedure Performed:: First ray resection right foot Description of Surgical Findings:: Hemostasis: Well-padded pneumatic right ankle tourniquet, 250 mmHg, 15 minutes Materials: 2-0 Prolene Specimens sent Complications: None The patient tolerated the procedure and anesthesia well. He will be transferred to the PACU with vital signs stable and vascular status intact to the right lower extremity. He will be transferred back to the medical surgical floor upon continued stability. Postoperative orders were entered electronically. Intraoperative fluoroscopy was used prior to leaving the operating room confirming adequate resection and no acute injuries. electrical experimental mechanic: none - surgeon; Jordyn Meyers DPM Oracle Programmer: Krysten Bee PGY2 Type of Anesthesia:: Local - preoperative: One-to-one mixture of 1% lidocaine plain and 0.5% Marcaine plain administered typical first ray block fashion, 20 cc, MAC Specimen's removed: 1. Right foot first metatarsal bone sent to microbiology for aerobic, anaerobic, acid-fast, fungal. 2. Right foot first metatarsal bone sent to pathology. 3. Right foot first metatarsal clearance fragment sent to microbiology for aerobic, anaerobic, acid-fast, fungal. 4. Right foot first metatarsal clearance fragment sent to pathology Estimated Blood Loss (mL): < 25 mL Description of Procedure: Indications: This 68-year-old male with multiple comorbidities including diabetic neuropathy, chronic pain syndrome s/p back surgery, history of bilateral lower extremity deep venous thrombosis, chronic COPD, hypertension, hyperlipidemia, arthritis, GERD, former tobacco user, and peripheral arterial disease now status post intervention and worsening status of right foot with an onset of 2 days ago. He presented for wound VAC change in which redness of the foot was noticed. He also had purulent drainage coming from his previous nonhealing hallux amputation site. His hallux amputation was performed on July 18, 2019 and has failed to heal. There is erythema extending to the hindfoot and some diminished bone density of the first metatarsal head adjacent to the ulcer site. MRI did also support the diagnosis of osteomyelitis of the first metatarsal head without definitive abscess formation. He has a chronic ulcer to the hallux amputation site with positive probe to first metatarsal head bone with some seropurulent drainage noted on expected west with some odor. He was started on vancomycin and Zosyn. The preoperative indications, planned procedure, possible benefits, risk, complications, and anticipated healing time and management were discussed in detail with patient. He understands elects proceed with surgery at this time. No guarantees were made. Informed surgical limb and consent were signed. Understands risk and complications include but not limited to following: Pain, swelling, scarring, need for further surgery, transfer lesion, blood clot, allergic reaction, chronic pain, loss of limb, function, life. His preoperative diagnostic data was reviewed including lab work. Preoperative EKG was also ordered. This case was verbally discussed with hospitalist, Dr. Cotter. He was preoperatively optimized and his anticoagulation medication including chronic Coumadin and Plavix were held. Procedure in detail: The patient was transported to the operating room via cart and placed on the operating room table in supine position. Final verification patient, surgery, limb designation was performed via the timeout procedure. A well-padded pneumatic right tourniquet was placed. He is continuing on IV antibiotics while on the medical surgical floor including vancomycin and Zosyn. MAC anesthesia was initiated by the anesthesia team. Local anesthesia was applied and an infiltrative manner with first ray block to the right foot by the podiatry team. The right lower extremity was prepped and draped in the usual aseptic manner. Baker exsanguination was performed to the right lower extremity and the tourniquet was inflated at this time. Attention was first directed to the medial distal aspect of the right forefoot at the prior hallux amputation site in which a full-thickness linear incision was made through the prior remaining ulcer site extending proximal medial about 3 cm. Full-thickness flap was created to reflect soft tissue off of the exposed first metatarsal head. His first metatarsal head was soft, with erosions, petit, and discolored. The adjacent tissue was devitalized and infected in appearance. There was no formed abscess or purulent expression on palpation to the adjacent fascial planes. A sagittal saw was used to resect the first metatarsal head taking care to bevel this bone cut to reduce future bony prominences. This was sent to pathology and microbiology. This was copiously irrigated with normal saline. At this time, clean instrumentation, gloves, and adjacent drapes were used. A clearance fragment was next obtained from the first metatarsal head and this was also sent to pathology and microbiology. Saline irrigation was performed and the sesamoid apparatus was also excised in total. Any devitalized or infectious tissue was debrided with 15 blade scalpel and rongeur. The tourniquet was deflated at this time and there was mild hematogenous drainage. Pressure was applied to maintain hemostasis and minimal electrocauterization was needed. Intraoperative fluoroscopy was utilized to confirm adequate resection was performed and there was no soft tissue emphysema, foreign body, or acute injuries. There was no pulsatile bleeding noted at this time and capillary fill time is less than 3 seconds to the dorsals and plantar aspect of this amputation site and to the remaining digits of the right foot. The skin was reapproximated with gentle eversion with retention simple, and vertical mattress suture techniques. The postoperative dressing consisting of Adaptic soaked Betadine, 4 x 4 gauze, abdominal pads, Kerlix, and Donte wrap were applied in a noncompressive manner was applied. After procedure: The patient tolerated the procedure and anesthesia well. He was transported to the PACU with vital signs stable and vascular status intact to the right lower extremity as compared to the preoperative status. It is noted he had prior intervention with vascular surgery this past July 2019 following some balloon stenting placement around the popliteal and proximal level. He will continue on vancomycin and Zosyn until additional culture results are available. Infectious disease is also on consultation which is greatly appreciated. He was advised to maintain a nonweightbearing status to the right lower extremity and to wear surgical shoe for additional protection. He was advised to ice for pain management and additional medication will be available if needed. Due to his peripheral vascular disease, I do not recommend routine elevation. He will resume his anticoagulation medication this evening or tomorrow morning. Proper glycemic control and nutritional supplementation will also be managed while he is in-house to optimize healing. Postoperative orders were entered electronically. I will continue to follow him close while in house. Jordyn Meyers DPM, [facility] Grafts/Implants Used: none - Complications none - Admit VTE Documentation VTE Present on Admission: No VTE Mechan Device Prophylaxis: SCD's VTE Pharm Prophylaxis ordered?: Yes
--- NOTE | 2019-09-12 14:18 | RAD_ITS ---
STUDY: X-RAY - RIGHT FOOT CLINICAL: Postoperative resection of first ray. TECHNIQUE: 3 view(s) of the foot. COMPARISON: Intraoperative images obtained earlier the same day. FINDINGS: There is a small plantar calcaneal enthesophyte. Otherwise, unremarkable talus, calcaneus, and tarsal bones. Normal visualized subtalar, talonavicular, calcaneocuboid, tarsal and tarsometatarsal articulations. There is amputation of the first ray at the level of the proximal metatarsal diaphysis. There is a small enthesophyte at the base of the fifth metatarsal. Normal second through fifth metatarsophalangeal joints. Normal interphalangeal joints and phalanges of the lesser toes. There is swelling and soft tissue gas at the amputation site. There is vascular calcification. RAD/Foot min 3 Views IMPRESSION: Amputation of the first ray at the level of the proximal metatarsal diaphysis. Electronically Signed: Tee Fermin MD at 15:03 EST Tel , Service support ,
[2019-09-12] MEDS: Glucerna Shake 120 ML LIQUID PO ×3 (14:30→21:11)
--- NOTE | 2019-09-12 14:34 | NURSING ---
Pt had surgery today with Dr Meyers. will follow as needed. orders to keep dressing in place.
[2019-09-12] MEDS: Lisinopril 20 MG Tablet PO (14:36)
[2019-09-12] MEDS: dilTIAZem CD 180 MG Capsule PO (14:37)
--- NOTE | 2019-09-12 15:48 | PCM.HP.ID ---
Problem List (1) Osteomyelitis Status: Acute Reason for Consult: osteo Consulted by: Dr. Cotter History of Present Illness: The patient is a 68 year old M with DM neuropathy, admission 07/2019 with R foot osteo. Had surg debridement, discharged on po augmentin for 6 week course due to (+) clearance cxs. Did well after discharge, followed at wound center, had wound vac in place. Finished abx 2-3 weeks ago but still had some exposed bone. Came to hospital now with one day history of R foot pain/swelling/redness. Seen by podiatry, taken to OR today for R 1st ray resection. Feeling ok, no fever. Full ROS performed and neg except as noted above. - Medical History Past Medical History (Chronic Problems): Chronic Problems (Last Updated 09/10/19 @ 10:05 by Allie Hobbs) 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) Lumbar spinal stenosis (Chronic) Obstructive sleep apnea (Chronic) Scabies infestation (Chronic) DVT (deep venous thrombosis) (Chronic) Tobacco abuse (Chronic) GERD (gastroesophageal reflux disease) (Chronic) Neuropathy (Chronic) Hypertension (Chronic) COPD (chronic obstructive pulmonary disease) (Chronic) Peripheral vascular disease (Chronic) Hyperlipidemia (Chronic) Erectile dysfunction (Chronic) Diabetes mellitus (Chronic) IDDM (insulin dependent diabetes mellitus) (Chronic) Allergies/Adverse Reactions: Allergies No Known Allergies Allergy (Verified 09/11/19 11:58) Home Medications: Ambulatory Orders Medication Instructions Recorded Diltiazem 180 mg PO DAILY 09/26/13 Gabapentin [Neurontin] 600 mg PO TID 09/26/13 Warfarin [Coumadin] 8 mg PO QODAY 11/06/15 Zolpidem Tartrate [Ambien] 10 mg PO QHS 11/06/15 Omeprazole [Prilosec] 40 mg PO DAILY 03/13/18 Multivitamin [Daily Multiple 1 ea PO DAILY 07/17/19 Vitamin] Aspirin [Aspirin, Baby] 81 mg PO DAILY@0800 09/11/19 Clopidogrel Bisulfate [Plavix] 75 mg PO DAILY 09/11/19 Insulin Degludec/Liraglutide 50 units SQ DAILY 09/11/19 [Xultophy 100 Unit-3.6MG/ml Pen] Meloxicam [Mobic] 15 mg PO DAILY 09/11/19 Potassium Chloride [Klor-Con] 20 meq PO BID 09/11/19 Ranitidine [Zantac] 300 mg PO DAILY 09/11/19 Warfarin [Coumadin (PBKC)] 7 mg PO QODAY 09/11/19 - Social History SMOKING STATUS:: Former smoker Vital Signs Temp Pulse Resp BP Pulse Ox 98.6 F 94 16 113/75 96 09/12/19 13:18 09/12/19 13:18 09/12/19 13:18 09/12/19 13:18 09/12/19 13:18 Oxygen Delivery Method Room Air Weight: 100.924 kg Body Mass Index (BMI) 31.0 Finger Stick Blood Glucose 239 Microbiology Past 72 Hours 09/11/19 14:50 Gram Stain - Final Wound - Right Foot Wound Culture - Preliminary Staphylococcus aureus Gram negative gala Laboratory Tests Past 24 Hrs 09/11/19 09/11/19 09/12/19 16:30 16:38 06:04 WBC 6.4 RBC 4.12 L Hgb 11.6 L Hct 36.6 L MCV 88.8 MCH 28.2 MCHC 31.7 L RDW Std Deviation 43.7 RDW Coeff of Estrada 13.4 Plt Count 240 MPV 9.8 Immature Gran % (Auto) 0.500 Neut % (Auto) 63.3 Lymph % (Auto) 25.1 [place] % (Auto) 8.9 Eos % (Auto) 1.7 Baso % (Auto) 0.5 Absolute Neuts (auto) 4.1 Absolute Lymphs (auto) 1.61 Nucleated RBC % 0 PT INR APTT Sodium Potassium Chloride Carbon Dioxide Anion Gap BUN Creatinine Estim Creat Clear Calc Est GFR (MDRD) Af Amer Est GFR (MDRD) Non-Af BUN/Creatinine Ratio Glucose Lactic Acid 1.6 Calcium S.aureus Protein A PCR POSITIVE H MRSA (PCR) Negative 09/12/19 09/12/19 06:04 06:04 WBC RBC Hgb Hct MCV MCH MCHC RDW Std Deviation RDW Coeff of Estrada Plt Count MPV Immature Gran % (Auto) Neut % (Auto) Lymph % (Auto) [place] % (Auto) Eos % (Auto) Baso % (Auto) Absolute Neuts (auto) Absolute Lymphs (auto) Nucleated RBC % PT 23.3 H INR 2.1 APTT 57.3 H Sodium 136 Potassium 3.8 Chloride 106 Carbon Dioxide 23.0 Anion Gap 7 BUN 8 Creatinine 0.68 L Estim Creat Clear Calc 77.39 Est GFR (MDRD) Af Amer 150 Est GFR (MDRD) Non-Af 124 BUN/Creatinine Ratio 11.8 Glucose 158 H Lactic Acid Calcium 8.3 L S.aureus Protein A PCR MRSA (PCR) - Other Studies Radiology: [] reviewed Other Studies: [] Route of nutrition/ use of supplements: [] Nutritional Intake: [] IV Site: [] Abreu Catheter: [] - Physical Exam General: Alert, Oriented x3, Cooperative, No apparent distress HEENT: Atraumatic, PERRLA, EOMI Neck: Supple, No Nodes Lungs: Clear to auscultation, Normal air movement Cardiovascular: Regular rate, Regular Rhythm, No murmurs Abdomen: Soft, Non Tender, Non-Distended Extremities: No edema Skin: Ulcer/ Wound - R foot wrapped IV Site: Peripheral Musculoskeletal: No Tenderness to Palpation of Joints or Extremities Neurological: Cranial nerves II-XII grossly intact - Assessment/Plan Antibiotics: [] Assessment/Plan: [] Active and Suspected Problems (Last Updated 09/10/19 @ 10:05 by Allie Hobbs) Diabetic foot infection (Acute) Osteomyelitis (Acute) Right foot infection (Acute) Osteomyelitis (Acute) Abscess of right foot (Suspected) R foot osteo - now s/p 1st ray resection by Dr. Meyers 09/12/19. Wound cx so far showing GNR and staph aureus. Cont vanc/zosyn for now. Will follow, thank you.
[2019-09-12] MEDS: Gabapentin 600 MG Tablet PO (17:09)
[2019-09-12 17:16] LABS: Bedside Glucose 265 mg/dL (70-110)
--- NOTE | 2019-09-12 17:33 | PCM.PROGNOTE ---
Patient Problems: Active and Suspected Problems (Last Updated 09/10/19 @ 10:05 by Allie Hobbs) Diabetic foot infection (Acute) Osteomyelitis (Acute) Right foot infection (Acute) Osteomyelitis (Acute) Abscess of right foot (Suspected) Subjective: Patient was seen and examined today, I discussed his care with podiatry and infectious diseases today, patient underwent surgery today for first ray resection for his right foot. Right performed today which showed evidence of osteomyelitis in the distal metaphysis of the first metatarsal along with cellulitis overlying the distal aspect of the first metatarsal. Patient has no complaints at this time of pain in his right foot, he has no complaints of any shortness of breath or chest pain. - Physical Exam Vitals/I&O's: Vital Signs Temp Pulse Resp BP Pulse Ox 98.2 F 95 16 114/76 97 09/12/19 14:42 09/12/19 14:42 09/12/19 14:42 09/12/19 14:42 09/12/19 14:42 Oxygen Delivery Method Room Air Weight: 100.924 kg Body Mass Index (BMI) 31.0 Finger Stick Blood Glucose 239 Intake and Output for Last 24 Hours 09/10/19 09/11/19 09/12/19 23:59 23:59 23:59 Intake Total 1208.33 / 1208.33 1788.54 / 1788.54 Output Total 1575 / 1575 Balance 1208.33 / 1208.33 213.54 / 213.54 General: Alert, Oriented x3, Cooperative, No apparent distress, Well developed, Well nourished HEENT: Atraumatic, PERRLA, EOMI, Normocephalic Oral: Moist Mucosa Neck: Supple, No JVD, Trachea Midline, Thyroid Normal Size and Texture Lungs: Clear to auscultation, Normal air movement, No rhonchi, No wheeze, No rales Cardiovascular: Regular rate, Regular Rhythm, Normal S1, Normal S2, No murmurs, PMI Normal, No rub noted Abdomen: Bowel Sounds Present, Soft, Non Tender, Non-Distended, No hernias noted Extremities: No clubbing, No cyanosis, Capillary Refill Less than 3 Seconds Skin: No rashes, - - Right foot is wrapped in surgical gauze-this was not removed for inspection Neurological: Cranial nerves II-XII grossly intact, Neuro grossly intact, Sensory exam intact to light touch and pain Psych/Mental Status: Normal Affect, Appropriate, Alert and oriented to time, place, person, mood and affect Microbiology Past 72 Hours 09/11/19 14:50 Wound - Right Foot Gram Stain - Final 09/11/19 14:50 Wound - Right Foot Wound Culture - Preliminary Staphylococcus aureus Gram negative gala Laboratory Results 09/11/19 16:30: S.aureus Protein A PCR POSITIVE H, MRSA (PCR) Negative 09/11/19 16:38: Lactic Acid 1.6 09/11/19 21:08: POC Glucose 266 H 09/12/19 06:04: WBC 6.4, RBC 4.12 L, Hgb 11.6 L, Hct 36.6 L, MCV 88.8, MCH 28.2, MCHC 31.7 L, RDW Std Deviation 43.7, RDW Coeff of Estrada 13.4, Plt Count 240, MPV 9.8, Immature Gran % (Auto) 0.500, Neut % (Auto) 63.3, Lymph % (Auto) 25.1, [place] % (Auto) 8.9, Eos % (Auto) 1.7, Baso % (Auto) 0.5, Absolute Neuts (auto) 4.1, Absolute Lymphs (auto) 1.61, Nucleated RBC % 0 09/12/19 06:04: PT 23.3 H, INR 2.1, APTT 57.3 H 09/12/19 06:04: Sodium 136, Potassium 3.8, Chloride 106, Carbon Dioxide 23.0, Anion Gap 7, BUN 8, Creatinine 0.68 L, Estim Creat Clear Calc 77.39, Est GFR (MDRD) Af Amer 150, Est GFR (MDRD) Non-Af 124, BUN/Creatinine Ratio 11.8, Glucose 158 H, Calcium 8.3 L 09/12/19 06:47: POC Glucose 173 H 09/12/19 09:53: POC Glucose 198 H 09/12/19 11:41: POC Glucose 173 H 09/12/19 17:07: POC Glucose 265 H Current Medications Acetaminophen (Tylenol) 650 mg PO Q6H PRN PRN PRN Reason: Pain Score 1-10/Temp > 100.7 F Al Hydroxide/Mg Hydroxide (Mylanta Ii) 30 ml PO Q6H PRN PRN PRN Reason: Gastric Burning Albuterol Sulfate (Ventolin Aerosols) 2.5 mg INHALATION Q2H PRN PRN PRN Reason: dyspnea, wheezing Albuterol/Ipratropium (Duoneb) 3 ml INHALATION Q6HWA.RT [facility] Last Admin: 09/12/19 13:16 Dose: Not Given Documented by: Atorvastatin Calcium (Lipitor) 40 mg PO QHS [facility] Last Admin: 09/11/19 21:09 Dose: 40 mg Documented by: Diltiazem HCl (Cardizem Cd) 180 mg PO DAILY [facility] Last Admin: 09/12/19 14:37 Dose: 180 mg Documented by: Gabapentin (Neurontin) 600 mg PO TIDCM [facility] Last Admin: 09/12/19 17:09 Dose: 600 mg Documented by: Glucagon () 1 mg IM .X1 PRN PRN Reason: Hypoglycemia Guaifenesin (Robitussin) 20 ml PO Q4H PRN PRN PRN Reason: COUGH Hydralazine HCl (Apresoline Iv) 10 mg IV Q4H PRN PRN PRN Reason: SBP > 160 Last Admin: 09/11/19 21:09 Dose: 10 mg Documented by: Vancomycin IV Pharmacy to Dose (1 ea/ Sodium Chloride) 500 mls @ 250 mls/hr IV X1 PRN; Protocol PRN Reason: Rx to Dose Piperacillin Sod/Tazobactam (Sod 3.375 gm/ Sodium Chloride) 50 mls @ 12.5 mls/hr IV Q8 [facility] Last Admin: 09/12/19 14:30 Dose: 12.5 mls/hr Documented by: Sodium Chloride () 1,000 mls @ 100 mls/hr IV .Q10H [facility] Last Admin: 09/12/19 13:29 Dose: 100 mls/hr Documented by: Dextrose (Dextrose 10%-Water) 250 mls @ 999 mls/hr IV .Q16M PRN; Protocol PRN Reason: HYPOGLYCEMIA Vancomycin HCl 1,250 mg/ (Sodium Chloride) 275 mls @ 167 mls/hr IV Q8H [facility] Last Infusion: 09/12/19 13:25 Dose: Infused Documented by: Insulin Glargine (Lantus (Bkc)) 50 units SC DAILY [facility] Last Admin: 09/12/19 09:54 Dose: 50 u Documented by: Insulin Human Lispro (Humalog Kwikpen (Bkc)) 0 unit SC ACHS [facility]; Protocol Last Admin: 09/12/19 17:09 Dose: 3 units Documented by: Lisinopril (Zestril) 20 mg PO DAILY [facility] Last Admin: 09/12/19 14:36 Dose: 20 mg Documented by: Magnesium Hydroxide (Milk Of Magnesia) 30 ml PO DAILY PRN PRN PRN Reason: Constipation Melatonin (Melatonin) 3 mg PO QHS PRN PRN PRN Reason: INSOMNIA Morphine Sulfate () 2 mg IV Q3H PRN PRN PRN Reason: Pain Score 6-10/10 Multivitamins (Multivitamin) 1 tablet PO DAILY@0800 [facility] Last Admin: 09/12/19 07:58 Dose: Not Given Documented by: Nitroglycerin (Nitrostat) 0.4 mg SUBLINGUAL Q5M PRN PRN Reason: CARDIAC/CHEST PAIN Nutritional Formula (Lactose Free) (Glucerna Shake) 120 ml PO 4X/DAY [facility] Last Admin: 09/12/19 14:30 Dose: 120 ml Documented by: Ondansetron HCl (Zofran) 4 mg IV Q8H PRN PRN PRN Reason: NAUSEA/VOMITING Oxycodone HCl (Oxyir) 5 mg PO Q4H PRN PRN PRN Reason: Pain Score 4-5/10 Last Admin: 09/11/19 21:09 Dose: 5 mg Documented by: Pantoprazole Sodium (Protonix) 40 mg PO DAILY [facility] Last Admin: 09/12/19 09:44 Dose: Not Given Documented by: Potassium Chloride (K-Dur) 20 meq PO BID [facility] Last Admin: 09/12/19 09:44 Dose: Not Given Documented by: Prochlorperazine Edisylate (Compazine Iv) 5 mg IV Q4H PRN PRN PRN Reason: Breakthrough nausea/vomiting Psyllium Hydrophilic Mucilloid (Metamucil) 1 packet PO DAILY PRN PRN PRN Reason: Constipation Senna/Docusate Sodium (Senokot-S, Donna-Colace) 2 tablet PO BID PRN PRN PRN Reason: Constipation Sodium Chloride () 10 - 40 ml IV UD PRN PRN Reason: SALINE FLUSH Throat Lozenges (Cepacol Sore Throat Lozenge) 1 lozenge MUCOUS MEM Q2H PRN PRN PRN Reason: SORE THROAT Zolpidem Tartrate (Ambien (Generic)) 10 mg PO QHS [facility] Last Admin: 09/11/19 21:08 Dose: 10 mg Documented by: Medical Necessity - Tobacco Use Smoking Status: Former smoker - Patient smokes 1 to 1.5 pack/day cigarette tobacco usage since his youth, quit recently during prior admission. Tobacco Use: Non-smoker Assessment/Plan All Active Problems (Last Updated 09/10/19 @ 10:05 by Allie Hobbs) Diabetic foot infection (Acute) Osteomyelitis (Acute) Right foot infection (Acute) Osteomyelitis (Acute) Screen for colon cancer (Acute) Diabetic foot infection (Acute) Gangrene of toe (Acute) Diabetic ulcer of right foot (Acute) Osteomyelitis (Acute) PVD (peripheral vascular disease) (Acute) Type 2 diabetes mellitus with diabetic polyneuropathy (Acute) Ulcer of right foot with fat layer exposed (Acute) Type 2 diabetes mellitus with diabetic polyneuropathy (Acute) PVD (peripheral vascular disease) (Acute) #1 osteomyelitis of the right great toe related to neuropathy of diabetes-methicillin sensitive staph aureus-again patient is status post removal of right first ray, continue present antibiotic coverage, infectious diseases is seeing patient #2 cellulitis of the right great toe related to neuropathy of diabetes-positive for methicillin sensitive staph aureus-again continue present antibiotic coverage #3 type 2 jzmdewgo-[id number]-[id number] monitor blood sugars #4 neuropathy of diabetes #5 chronic obstructive pulmonary disease #6 essential hypertension #7 peripheral vascular disease-complicates care and recovery #8 hyperlipidemia
[2019-09-12 18:35] LABS: Vancomycin, Trough Level 13.6 ug/mL (5.0-15.0)
--- NOTE | 2019-09-12 19:14 | PCM.RX.CS ---
Consult Pharmacy has been consulted to manage selected antiobiotic: Vancomycin Type of Consult: Follow-up Suspected Infection: Osteomyelitis Prior Doses of Antibiotics Received/Current Regimen: VANCOMYCIN 1250MG IV Q8H 09/12 @0227, 1128, 1758 Labs: Sodium 136 mmol/L (136-145) 09/12/19 06:04 Potassium 3.8 mmol/L (3.5-5.1) 09/12/19 06:04 Chloride 106 mmol/L (98-107) 09/12/19 06:04 Carbon Dioxide 23.0 mmol/L (21.0-32.0) 09/12/19 06:04 Anion Gap 7 (5-15) 09/12/19 06:04 BUN 8 mg/dL (7-18) 09/12/19 06:04 Creatinine 0.68 mg/dL (0.70-1.30) L 09/12/19 06:04 Est GFR (MDRD) Af Amer 150 mL/min (>60) 09/12/19 06:04 Est GFR (MDRD) Non-Af 124 mL/min (>60) 09/12/19 06:04 BUN/Creatinine Ratio 11.8 RATIO (10-20) 09/12/19 06:04 Glucose 158 mg/dL (74-106) H 09/12/19 06:04 Vancomycin Trough 13.6 ug/mL (5.0-15.0) 09/12/19 17:30 Microbiology: Microbiology 09/11/19 14:50 Wound - Right Foot Gram Stain - Final 09/11/19 14:50 Wound - Right Foot Wound Culture - Preliminary Staphylococcus aureus Gram negative gala Weight used for dosin.9 kg Estimated Creatinine Clearance: 77 ML/MIN Goal Trough: 15-20 mcg/mL Pharmacy Plan for Drug Dosing: The patient had a trough drawn which resulted in a value of 13.6 (drawn 6hrs from last administered dose). Although the patient has a trough goal of 15-20, I hesitate to increase dose at this time since the patient is already on an 8 hour schedule, is of older age, and trough was taken after 2 doses of q8hr regimen +initial dose. Will plan on continuing current dosing schedule and drawing a trough Tuesday morning to assess. If the patient is still below goal at that time, will consider increasing dose then. Per ID progress note, the patient feels good, and per chart, WBC count normal and pt has remained afebrile. PLAN/RECOMMENDATIONS 1. Continue current vancomycin dose: 1250mg IV Q8hr 2. Trough scheduled 09/14/19 @0930 3. Pharmacy Service will continue to monitor and adjust dosing as required.
[2019-09-12 20:26] LABS: Bedside Glucose 241 mg/dL (70-110)
--- NOTE | 2019-09-12 20:32 | EKG12_ITS ---
Test Reason : PREOP Blood Pressure : / mmHG Vent. Rate : 102 BPM Atrial Rate : 102 BPM P-R Int : 150 ms QRS Dur : 076 ms QT Int : 344 ms P-R-T Axes : 040 004 006 degrees QTc Int : 448 ms Sinus tachycardia Otherwise normal ECG When compared with ECG of 18-JUL-2019 05:26, No significant change was found Confirmed by TIKA CHAPA, SHEN ([id number]), art editor STANISLAV OVIEDO ([id number]) on 09/17/2019 8:55:49 AM Referred By: BANDAR Confirmed By:NUHA VILLELA MD
[2019-09-12] MEDS: 0.9% Saline Lock 10 ML Syringe IV (20:54)
[2019-09-12] MEDS: Metoprolol Tartrate 5 MG/5 ML Vial IV (20:54)
[2019-09-12] MEDS: Acetaminophen 325 MG Tablet 650 MG PO (21:06)
[2019-09-12] MEDS: Atorvastatin Calcium 40 MG Tablet PO (21:07)
[2019-09-12] MEDS: Zolpidem Tartrate 5 MG Tablet 10 MG PO (22:08)
[2019-09-13] VITALS (10 sets, daily range): BP systolic 120–153; BP diastolic 65–86; PULSE 82–108; RESP 12–20; TEMP 36.7–36.9; O2SAT 96–100
[2019-09-13] MEDS: 0.9% Normal Saline 1,000 ML 100 ML IV ×2 (00:18→14:01)
[2019-09-13 06:10] LABS: International Normalized Ratio 1.7; Prothrombin Time (Protime)PT. 19.9 SECONDS (11.7-14.9)
[2019-09-13] MEDS: Ipratropium/Albuterol Sulfate 3 ML AMPUL.NEB INHALATION ×2 (07:04→18:45)
[2019-09-13 07:05] LABS: Bedside Glucose 142 mg/dL (70-110)
[2019-09-13] MEDS: Gabapentin 600 MG Tablet PO ×3 (08:54→17:21)
[2019-09-13] MEDS: Multivitamins,Therapeutic Tablet 1 TABLET PO (08:54)
[2019-09-13] MEDS: dilTIAZem CD 180 MG Capsule PO (10:26)
[2019-09-13] MEDS: Pantoprazole Sodium 40 MG Tablet PO (10:26)
[2019-09-13] MEDS: Lisinopril 20 MG Tablet PO (10:26)
[2019-09-13] MEDS: Glucerna Shake 120 ML LIQUID PO ×4 (10:30→21:18)
--- NOTE | 2019-09-13 10:30 | PN.ID_ITS ---
Patient Problems: Active and Suspected Problems (Last Updated 09/10/19 @ 10:05 by Allie Hobbs) Diabetic foot infection (Acute) Osteomyelitis (Acute) Right foot infection (Acute) Osteomyelitis (Acute) Abscess of right foot (Suspected) Subjective: Feeling ok, no fever, no n/v/d. - Physical Exam Vitals/I&O's: Vital Signs Temp Pulse Resp BP Pulse Ox 98.2 F 99 16 128/70 H 96 09/13/19 08:46 09/13/19 08:46 09/13/19 08:46 09/13/19 08:46 09/13/19 08:46 Oxygen Delivery Method Room Air Weight: 100.924 kg Body Mass Index (BMI) 31.0 Finger Stick Blood Glucose 239 Intake and Output for Last 24 Hours 09/11/19 09/12/19 09/13/19 23:59 23:59 23:59 Intake Total 1208.33 / 1208.33 3113.54 / 3713.54 1405 / 1405 Output Total 1575 / 2325 1000 / 1000 Balance 1208.33 / 1208.33 1538.54 / 1388.54 405 / 405 General: Alert, Cooperative, No apparent distress Lungs: Clear to auscultation, Normal air movement Cardiovascular: Regular rate, Regular Rhythm Abdomen: Soft, Non Tender, Non-Distended Skin: Ulcer/ Wound - foot wrapped Microbiology Past 72 Hours 09/11/19 14:50 Wound - Right Foot Gram Stain - Final 09/11/19 14:50 Wound - Right Foot Wound Culture - Final Staphylococcus aureus Morganella morganii sp morgani Laboratory Results 09/12/19 11:41: POC Glucose 173 H 09/12/19 17:07: POC Glucose 265 H 09/12/19 17:30: Vancomycin Trough 13.6 09/12/19 20:17: POC Glucose 241 H 09/13/19 05:25: PT 19.9 H, INR 1.7 09/13/19 06:27: POC Glucose 142 H Current Medications Acetaminophen (Tylenol) 650 mg PO Q6H PRN PRN PRN Reason: Pain Score 1-10/Temp > 100.7 F Last Admin: 09/12/19 21:06 Dose: 650 mg Documented by: Al Hydroxide/Mg Hydroxide (Mylanta Ii) 30 ml PO Q6H PRN PRN PRN Reason: Gastric Burning Albuterol Sulfate (Ventolin Aerosols) 2.5 mg INHALATION Q2H PRN PRN PRN Reason: dyspnea, wheezing Albuterol/Ipratropium (Duoneb) 3 ml INHALATION Q6HWA.RT [facility] Last Admin: 09/13/19 07:04 Dose: 3 ml Documented by: Atorvastatin Calcium (Lipitor) 40 mg PO QHS [facility] Last Admin: 09/12/19 21:07 Dose: 40 mg Documented by: Diltiazem HCl (Cardizem Cd) 180 mg PO DAILY [facility] Last Admin: 09/12/19 14:37 Dose: 180 mg Documented by: Gabapentin (Neurontin) 600 mg PO TIDCM [facility] Last Admin: 09/13/19 08:54 Dose: 600 mg Documented by: Glucagon () 1 mg IM .X1 PRN PRN Reason: Hypoglycemia Guaifenesin (Robitussin) 20 ml PO Q4H PRN PRN PRN Reason: COUGH Hydralazine HCl (Apresoline Iv) 10 mg IV Q4H PRN PRN PRN Reason: SBP > 160 Last Admin: 09/11/19 21:09 Dose: 10 mg Documented by: Piperacillin Sod/Tazobactam (Sod 3.375 gm/ Sodium Chloride) 50 mls @ 12.5 mls/hr IV Q8 [facility] Last Admin: 09/13/19 06:24 Dose: 12.5 mls/hr Documented by: Sodium Chloride () 1,000 mls @ 100 mls/hr IV .Q10H [facility] Last Infusion: 09/13/19 03:51 Dose: 100 mls/hr Documented by: Dextrose (Dextrose 10%-Water) 250 mls @ 999 mls/hr IV .Q16M PRN; Protocol PRN Reason: HYPOGLYCEMIA Insulin Glargine (Lantus (Bk)) 50 units SC DAILY [facility] Last Admin: 09/12/19 09:54 Dose: 50 u Documented by: Insulin Human Lispro (Humalog Kwikpen (Bk)) 0 unit SC ACHS [facility]; Protocol Last Admin: 09/13/19 06:27 Dose: Not Given Documented by: Lisinopril (Zestril) 20 mg PO DAILY [facility] Last Admin: 09/12/19 14:36 Dose: 20 mg Documented by: Magnesium Hydroxide (Milk Of Magnesia) 30 ml PO DAILY PRN PRN PRN Reason: Constipation Melatonin (Melatonin) 3 mg PO QHS PRN PRN PRN Reason: INSOMNIA Morphine Sulfate () 2 mg IV Q3H PRN PRN PRN Reason: Pain Score 6-10/10 Multivitamins (Multivitamin) 1 tablet PO DAILY@0800 [facility] Last Admin: 09/13/19 08:54 Dose: 1 tablet Documented by: Nitroglycerin (Nitrostat) 0.4 mg SUBLINGUAL Q5M PRN PRN Reason: CARDIAC/CHEST PAIN Nutritional Formula (Lactose Free) (Glucerna Shake) 120 ml PO 4X/DAY [facility] Last Admin: 09/12/19 21:11 Dose: 120 ml Documented by: Ondansetron HCl (Zofran) 4 mg IV Q8H PRN PRN PRN Reason: NAUSEA/VOMITING Oxycodone HCl (Oxyir) 5 mg PO Q4H PRN PRN PRN Reason: Pain Score 4-5/10 Last Admin: 09/11/19 21:09 Dose: 5 mg Documented by: Pantoprazole Sodium (Protonix) 40 mg PO DAILY [facility] Last Admin: 09/12/19 09:44 Dose: Not Given Documented by: Potassium Chloride (K-Dur) 20 meq PO BID [facility] Last Admin: 09/12/19 21:05 Dose: 20 meq Documented by: Prochlorperazine Edisylate (Compazine Iv) 5 mg IV Q4H PRN PRN PRN Reason: Breakthrough nausea/vomiting Psyllium Hydrophilic Mucilloid (Metamucil) 1 packet PO DAILY PRN PRN PRN Reason: Constipation Senna/Docusate Sodium (Senokot-S, Donna-Colace) 2 tablet PO BID PRN PRN PRN Reason: Constipation Sodium Chloride () 10 - 40 ml IV UD PRN PRN Reason: SALINE FLUSH Last Admin: 09/12/19 20:54 Dose: 10 ml Documented by: Throat Lozenges (Cepacol Sore Throat Lozenge) 1 lozenge MUCOUS MEM Q2H PRN PRN PRN Reason: SORE THROAT Warfarin Sodium (Coumadin (Pbkc)) 5 mg PO DAILY@1700 [facility] Zolpidem Tartrate (Ambien (Generic)) 10 mg PO QHS [facility] Last Admin: 09/12/19 22:08 Dose: 10 mg Documented by: Medical Necessity - Tobacco Use Smoking Status: Former smoker - Patient smokes 1 to 1.5 pack/day cigarette tobacco usage since his youth, quit recently during prior admission. Tobacco Use: Non-smoker Route of nutrition/ use of supplements: [] Nutritional Intake: [] IV Site: [] Abreu Catheter: [] - Assessment/Plan Antibiotics: [] Assessment/Plan: [] Active and Suspected Problems (Last Updated 09/10/19 @ 10:05 by Allie Hobbs) Diabetic foot infection (Acute) Osteomyelitis (Acute) Right foot infection (Acute) Osteomyelitis (Acute) Abscess of right foot (Suspected) R foot osteo - now s/p 1st ray resection by Dr. Meyers 09/12/19. Wound cx so far showing morganella and mSSA. Will stop vanc, cont zosyn. Surg cx and path pending. If he returns home, family does not want any nurses to visit, so tentative plan is for po abx at discharge. Will follow, d/w case repairer
[2019-09-13] MEDS: Acetaminophen 325 MG Tablet 650 MG PO (10:34)
[2019-09-13] MEDS: Insulin Lispro 100 UNIT/ML INSULN.PEN SC ×3 (11:48→21:31)
[2019-09-13 12:00] LABS: Bedside Glucose 272 mg/dL (70-110)
[2019-09-13 16:25] LABS: Bedside Glucose 283 mg/dL (70-110)
--- NOTE | 2019-09-13 17:18 | PN_ITS ---
Patient Problems: Active and Suspected Problems (Last Updated 09/10/19 @ 10:05 by Allie Hobbs) Diabetic foot infection (Acute) Osteomyelitis (Acute) Right foot infection (Acute) Osteomyelitis (Acute) Abscess of right foot (Suspected) Subjective: This 68-year-old male with multiple comorbidities was seen postoperative day #1 right first ray resection for treatment of osteomyelitis and nonhealing foot ulcer. He denies pain, fever, chill, nausea. He is amend[facility] for [facility] and IV antibiotics. - Physical Exam Vitals/I&O's: Vital Signs Temp Pulse Resp BP Pulse Ox 98.1 F 82 16 120/65 96 09/13/19 14:37 09/13/19 15:52 09/13/19 14:37 09/13/19 14:37 09/13/19 14:37 Oxygen Delivery Method Room Air Weight: 100.924 kg Body Mass Index (BMI) 31.0 Finger Stick Blood Glucose 239 Intake and Output for Last 24 Hours 09/11/19 09/12/19 09/13/19 23:59 23:59 23:59 Intake Total 1208.33 / 1208.33 3113.54 / 3713.54 2275 / 2275 Output Total 1575 / 2325 1600 / 1600 Balance 1208.33 / 1208.33 1538.54 / 1388.54 675 / 675 General: Alert, Oriented x3, Cooperative HEENT: Atraumatic Extremities: No cyanosis, Capillary Refill Less than 3 Seconds, No Calf Tenderness - Negative Jarett and Warren sign right, Diminished Peripheral Pulses, Edema Skin: Ulcer/ Wound, Incision - Incision to medial foot is well aligned with sutures intact. There is no gapping or necrosis. There is no proximal streaking, purulence, or odor. The erythema is resolving. His skin is atrophic Musculoskeletal: No Tenderness to Palpation of Joints or Extremities, - - Compartment soft to palpate right foot Neurological: - - Lack of normal epicritic sensation with light touch Psych/Mental Status: Normal Affect, Appropriate Microbiology Past 72 Hours 09/12/19 12:45 Bone - Toe Gram Stain - Final 09/12/19 12:45 Bone - Toe Wound Culture - Preliminary Gram positive organism 09/12/19 12:39 Bone - Toe Gram Stain - Final 09/12/19 12:39 Bone - Toe Wound Culture - Preliminary Staphylococcus aureus Gram positive organism 09/11/19 14:50 Wound - Right Foot Gram Stain - Final 09/11/19 14:50 Wound - Right Foot Wound Culture - Final Staphylococcus aureus Morganella morganii sp morgani Laboratory Results 09/12/19 17:30: Vancomycin Trough 13.6 09/12/19 20:17: POC Glucose 241 H 09/13/19 05:25: PT 19.9 H, INR 1.7 09/13/19 06:27: POC Glucose 142 H 09/13/19 11:46: POC Glucose 272 H 09/13/19 16:06: POC Glucose 283 H Current Medications Acetaminophen (Tylenol) 650 mg PO Q6H PRN PRN PRN Reason: Pain Score 1-10/Temp > 100.7 F Last Admin: 09/13/19 10:34 Dose: 650 mg Documented by: Al Hydroxide/Mg Hydroxide (Mylanta Ii) 30 ml PO Q6H PRN PRN PRN Reason: Gastric Burning Albuterol Sulfate (Ventolin Aerosols) 2.5 mg INHALATION Q2H PRN PRN PRN Reason: dyspnea, wheezing Albuterol/Ipratropium (Duoneb) 3 ml INHALATION Q6HWA.RT [facility] Last Admin: 09/13/19 13:00 Dose: Not Given Documented by: Atorvastatin Calcium (Lipitor) 40 mg PO QHS [facility] Last Admin: 09/12/19 21:07 Dose: 40 mg Documented by: Diltiazem HCl (Cardizem Cd) 180 mg PO DAILY [facility] Last Admin: 09/13/19 10:26 Dose: 180 mg Documented by: Gabapentin (Neurontin) 600 mg PO TIDCM [facility] Last Admin: 09/13/19 11:49 Dose: 600 mg Documented by: Glucagon () 1 mg IM .X1 PRN PRN Reason: Hypoglycemia Guaifenesin (Robitussin) 20 ml PO Q4H PRN PRN PRN Reason: COUGH Hydralazine HCl (Apresoline Iv) 10 mg IV Q4H PRN PRN PRN Reason: SBP > 160 Last Admin: 09/11/19 21:09 Dose: 10 mg Documented by: Piperacillin Sod/Tazobactam (Sod 3.375 gm/ Sodium Chloride) 50 mls @ 12.5 mls/hr IV Q8 [facility] Last Admin: 09/13/19 14:49 Dose: 12.5 mls/hr Documented by: Sodium Chloride () 1,000 mls @ 100 mls/hr IV .Q10H [facility] Last Admin: 09/13/19 14:01 Dose: 100 mls/hr Documented by: Dextrose (Dextrose 10%-Water) 250 mls @ 999 mls/hr IV .Q16M PRN; Protocol PRN Reason: HYPOGLYCEMIA Insulin Glargine (Lantus (Bk)) 50 units SC DAILY [facility] Last Admin: 09/13/19 10:26 Dose: 50 u Documented by: Insulin Human Lispro (Humalog Kwikpen ([facility])) 0 unit SC ACHS [facility]; Protocol Last Admin: 09/13/19 16:08 Dose: 4 units Documented by: Lisinopril (Zestril) 20 mg PO DAILY [facility] Last Admin: 09/13/19 10:26 Dose: 20 mg Documented by: Magnesium Hydroxide (Milk Of Magnesia) 30 ml PO DAILY PRN PRN PRN Reason: Constipation Melatonin (Melatonin) 3 mg PO QHS PRN PRN PRN Reason: INSOMNIA Morphine Sulfate () 2 mg IV Q3H PRN PRN PRN Reason: Pain Score 6-10/10 Multivitamins (Multivitamin) 1 tablet PO DAILY@0800 [facility] Last Admin: 09/13/19 08:54 Dose: 1 tablet Documented by: Nitroglycerin (Nitrostat) 0.4 mg SUBLINGUAL Q5M PRN PRN Reason: CARDIAC/CHEST PAIN Nutritional Formula ([place] - [place] Flavor) [facility] Nutritional Formula (Lactose Free) (Glucerna Shake) 120 ml PO 4X/DAY [facility] Last Admin: 09/13/19 14:49 Dose: 120 ml Documented by: Ondansetron HCl (Zofran) 4 mg IV Q8H PRN PRN PRN Reason: NAUSEA/VOMITING Oxycodone HCl (Oxyir) 5 mg PO Q4H PRN PRN PRN Reason: Pain Score 4-5/10 Last Admin: 09/11/19 21:09 Dose: 5 mg Documented by: Pantoprazole Sodium (Protonix) 40 mg PO DAILY [facility] Last Admin: 09/13/19 10:26 Dose: 40 mg Documented by: Potassium Chloride (K-Dur) 20 meq PO BID [facility] Last Admin: 09/13/19 10:26 Dose: 20 meq Documented by: Prochlorperazine Edisylate (Compazine Iv) 5 mg IV Q4H PRN PRN PRN Reason: Breakthrough nausea/vomiting Psyllium Hydrophilic Mucilloid (Metamucil) 1 packet PO DAILY PRN PRN PRN Reason: Constipation Senna/Docusate Sodium (Senokot-S, Donna-Colace) 2 tablet PO BID PRN PRN PRN Reason: Constipation Sodium Chloride () 10 - 40 ml IV UD PRN PRN Reason: SALINE FLUSH Last Admin: 09/12/19 20:54 Dose: 10 ml Documented by: Throat Lozenges (Cepacol Sore Throat Lozenge) 1 lozenge MUCOUS MEM Q2H PRN PRN PRN Reason: SORE THROAT Warfarin Sodium (Coumadin (Pbkc)) 5 mg PO DAILY@1700 [facility] Zolpidem Tartrate (Ambien (Generic)) 10 mg PO QHS [facility] Last Admin: 09/12/19 22:08 Dose: 10 mg Documented by: Medical Necessity - Tobacco Use Smoking Status: Former smoker - Patient smokes 1 to 1.5 pack/day cigarette tobacco usage since his youth, quit recently during prior admission. Tobacco Use: Non-smoker Assessment/Plan All Active Problems (Last Updated 09/10/19 @ 10:05 by Allie Hobbs) Diabetic foot infection (Acute) Osteomyelitis (Acute) Right foot infection (Acute) Osteomyelitis (Acute) Screen for colon cancer (Acute) Diabetic foot infection (Acute) Gangrene of toe (Acute) Diabetic ulcer of right foot (Acute) Osteomyelitis (Acute) PVD (peripheral vascular disease) (Acute) Type 2 diabetes mellitus with diabetic polyneuropathy (Acute) Ulcer of right foot with fat layer exposed (Acute) Type 2 diabetes mellitus with diabetic polyneuropathy (Acute) PVD (peripheral vascular disease) (Acute) Postoperative day #1 right foot first ray resection for treatment of osteomyelitis and nonhealing ulcer Chronic uncontrolled diabetes (hemoglobin A1c of 13.3% on June 2019) Other comorbidities include the following: chronic pain syndrome s/p back surgery, history of bilateral lower extremity deep venous thrombosis, chronic COPD, hypertension, hyperlipidemia, arthritis, GERD, former tobacco user, peripheral arterial disease now status post intervention I reviewed and discussed his case. He is afebrile overnight and his tachycardia has resolved. His surgical site was evaluated and his clinical infection signs are resolving. He has brisk capillary refill time to all areas of the amputation site. A new dressing of Betadine gauze, Kerlix, and Donte wrap were applied. He will continue on IV antibiotics and it is noted he is on Zosyn. He does have some bacterial growth noted in 1 of the clearance fragments and the final results are pending. PICC line was ordered. Management by infectious diseases greatly appreciated. The pathology clearance specimen is still pending. He was advised to maintain a strict nonweightbearing status. He has a walker already and has ordered a knee roller. He has a surgical shoe as well and only places heel down for transfers. His pain is controlled. [facility] facility placement is recommended and is pending. I recommend changing the dressing the next week when he comes to clinic [facility]. We will continue to follow him close while in house. Medical management per primary team is greatly appreciated. Please do not hesitate to call with any questions. Jordyn Meyers DPM, [facility] [phone]
--- NOTE | 2019-09-13 17:37 | PN_ITS ---
Patient Problems: Active and Suspected Problems (Last Updated 09/10/19 @ 10:05 by Allie Hobbs) Diabetic foot infection (Acute) Osteomyelitis (Acute) Right foot infection (Acute) Osteomyelitis (Acute) Abscess of right foot (Suspected) Subjective: Patient was seen and examined today, his bone fragment from surgery (clearance fragment) is positive for gram-positive cocci. I talked with infectious disease briefly by phone and they stated that if the patient would consent to IV antibiotic therapy at a nursing home facility, this would be the best route to go. I talked with the patient late this afternoon and he stated he had no objections to going to a nursing home facility on IV antibiotics. I have written for a PICC line to be inserted. Patient has no complaints of any fevers or chills today. - Physical Exam Vitals/I&O's: Vital Signs Temp Pulse Resp BP Pulse Ox 98.1 F 82 16 120/65 96 09/13/19 14:37 09/13/19 15:52 09/13/19 14:37 09/13/19 14:37 09/13/19 14:37 Oxygen Delivery Method Room Air Weight: 100.924 kg Body Mass Index (BMI) 31.0 Finger Stick Blood Glucose 239 Intake and Output for Last 24 Hours 09/11/19 09/12/19 09/13/19 23:59 23:59 23:59 Intake Total 1208.33 / 1208.33 3113.54 / 3713.54 2275 / 2275 Output Total 1575 / 2325 1600 / 1600 Balance 1208.33 / 1208.33 1538.54 / 1388.54 675 / 675 General: Alert, Oriented x3, Cooperative, No apparent distress, Well developed HEENT: Atraumatic, PERRLA, EOMI, Normocephalic Oral: Moist Mucosa Neck: Supple, No JVD, Trachea Midline, Thyroid Normal Size and Texture Lungs: Clear to auscultation, Normal air movement, No rhonchi, No wheeze, No rales Cardiovascular: Regular rate, Regular Rhythm, Normal S1, Normal S2, No murmurs, No Ectopic Activity Abdomen: Bowel Sounds Present, Soft, Non Tender, Non-Distended Extremities: No clubbing, No cyanosis, No edema, Capillary Refill Less than 3 Seconds Skin: No rashes Neurological: Cranial nerves II-XII grossly intact, Neuro grossly intact, Sensory exam intact to light touch and pain Psych/Mental Status: Normal Affect, Appropriate, Alert and oriented to time, place, person, mood and affect Microbiology Past 72 Hours 09/12/19 12:45 Bone - Toe Gram Stain - Final 09/12/19 12:45 Bone - Toe Wound Culture - Preliminary Gram positive organism 09/12/19 12:39 Bone - Toe Gram Stain - Final 09/12/19 12:39 Bone - Toe Wound Culture - Preliminary Staphylococcus aureus Gram positive organism 09/11/19 14:50 Wound - Right Foot Gram Stain - Final 09/11/19 14:50 Wound - Right Foot Wound Culture - Final Staphylococcus aureus Morganella morganii sp morgani Laboratory Results 09/12/19 17:30: Vancomycin Trough 13.6 09/12/19 20:17: POC Glucose 241 H 09/13/19 05:25: PT 19.9 H, INR 1.7 09/13/19 06:27: POC Glucose 142 H 09/13/19 11:46: POC Glucose 272 H 09/13/19 16:06: POC Glucose 283 H Current Medications Acetaminophen (Tylenol) 650 mg PO Q6H PRN PRN PRN Reason: Pain Score 1-10/Temp > 100.7 F Last Admin: 09/13/19 10:34 Dose: 650 mg Documented by: Al Hydroxide/Mg Hydroxide (Mylanta Ii) 30 ml PO Q6H PRN PRN PRN Reason: Gastric Burning Albuterol Sulfate (Ventolin Aerosols) 2.5 mg INHALATION Q2H PRN PRN PRN Reason: dyspnea, wheezing Albuterol/Ipratropium (Duoneb) 3 ml INHALATION Q6HWA.RT [facility] Last Admin: 09/13/19 13:00 Dose: Not Given Documented by: Atorvastatin Calcium (Lipitor) 40 mg PO QHS [facility] Last Admin: 09/12/19 21:07 Dose: 40 mg Documented by: Diltiazem HCl (Cardizem Cd) 180 mg PO DAILY [facility] Last Admin: 09/13/19 10:26 Dose: 180 mg Documented by: Gabapentin (Neurontin) 600 mg PO TIDCM [facility] Last Admin: 09/13/19 17:21 Dose: 600 mg Documented by: Glucagon () 1 mg IM .X1 PRN PRN Reason: Hypoglycemia Guaifenesin (Robitussin) 20 ml PO Q4H PRN PRN PRN Reason: COUGH Hydralazine HCl (Apresoline Iv) 10 mg IV Q4H PRN PRN PRN Reason: SBP > 160 Last Admin: 09/11/19 21:09 Dose: 10 mg Documented by: Piperacillin Sod/Tazobactam (Sod 3.375 gm/ Sodium Chloride) 50 mls @ 12.5 mls/hr IV Q8 [facility] Last Admin: 09/13/19 14:49 Dose: 12.5 mls/hr Documented by: Sodium Chloride () 1,000 mls @ 100 mls/hr IV .Q10H [facility] Last Admin: 09/13/19 14:01 Dose: 100 mls/hr Documented by: Dextrose (Dextrose 10%-Water) 250 mls @ 999 mls/hr IV .Q16M PRN; Protocol PRN Reason: HYPOGLYCEMIA Insulin Glargine (Lantus ([facility])) 50 units SC DAILY [facility] Last Admin: 09/13/19 10:26 Dose: 50 u Documented by: Insulin Human Lispro (Humalog Kwikpen ([facility])) 0 unit SC ACHS [facility]; Protocol Last Admin: 09/13/19 16:08 Dose: 4 units Documented by: Lisinopril (Zestril) 20 mg PO DAILY [facility] Last Admin: 09/13/19 10:26 Dose: 20 mg Documented by: Magnesium Hydroxide (Milk Of Magnesia) 30 ml PO DAILY PRN PRN PRN Reason: Constipation Melatonin (Melatonin) 3 mg PO QHS PRN PRN PRN Reason: INSOMNIA Morphine Sulfate () 2 mg IV Q3H PRN PRN PRN Reason: Pain Score 6-10/10 Multivitamins (Multivitamin) 1 tablet PO DAILY@0800 [facility] Last Admin: 09/13/19 08:54 Dose: 1 tablet Documented by: Nitroglycerin (Nitrostat) 0.4 mg SUBLINGUAL Q5M PRN PRN Reason: CARDIAC/CHEST PAIN Nutritional Formula (Renny - [place] Flavor) 1 packet PO BIDCM [facility] Last Admin: 09/13/19 17:21 Dose: 1 packet Documented by: Nutritional Formula (Lactose Free) (Glucerna Shake) 120 ml PO 4X/DAY [facility] Last Admin: 09/13/19 17:15 Dose: 120 ml Documented by: Ondansetron HCl (Zofran) 4 mg IV Q8H PRN PRN PRN Reason: NAUSEA/VOMITING Oxycodone HCl (Oxyir) 5 mg PO Q4H PRN PRN PRN Reason: Pain Score 4-5/10 Last Admin: 09/11/19 21:09 Dose: 5 mg Documented by: Pantoprazole Sodium (Protonix) 40 mg PO DAILY [facility] Last Admin: 09/13/19 10:26 Dose: 40 mg Documented by: Potassium Chloride (K-Dur) 20 meq PO BID [facility] Last Admin: 09/13/19 10:26 Dose: 20 meq Documented by: Prochlorperazine Edisylate (Compazine Iv) 5 mg IV Q4H PRN PRN PRN Reason: Breakthrough nausea/vomiting Psyllium Hydrophilic Mucilloid (Metamucil) 1 packet PO DAILY PRN PRN PRN Reason: Constipation Senna/Docusate Sodium (Senokot-S, Donna-Colace) 2 tablet PO BID PRN PRN PRN Reason: Constipation Sodium Chloride () 10 - 40 ml IV UD PRN PRN Reason: SALINE FLUSH Last Admin: 09/12/19 20:54 Dose: 10 ml Documented by: Throat Lozenges (Cepacol Sore Throat Lozenge) 1 lozenge MUCOUS MEM Q2H PRN PRN PRN Reason: SORE THROAT Warfarin Sodium (Coumadin (Pbkc)) 5 mg PO DAILY@1700 [facility] Last Admin: 09/13/19 17:21 Dose: 5 mg Documented by: Zolpidem Tartrate (Ambien (Generic)) 10 mg PO QHS [facility] Last Admin: 09/12/19 22:08 Dose: 10 mg Documented by: Medical Necessity - Tobacco Use Smoking Status: Former smoker - Patient smokes 1 to 1.5 pack/day cigarette tobacco usage since his youth, quit recently during prior admission. Tobacco Use: Non-smoker Assessment/Plan All Active Problems (Last Updated 09/10/19 @ 10:05 by Allie Hobbs) Diabetic foot infection (Acute) Osteomyelitis (Acute) Right foot infection (Acute) Osteomyelitis (Acute) Screen for colon cancer (Acute) Diabetic foot infection (Acute) Gangrene of toe (Acute) Diabetic ulcer of right foot (Acute) Osteomyelitis (Acute) PVD (peripheral vascular disease) (Acute) Type 2 diabetes mellitus with diabetic polyneuropathy (Acute) Ulcer of right foot with fat layer exposed (Acute) Type 2 diabetes mellitus with diabetic polyneuropathy (Acute) PVD (peripheral vascular disease) (Acute) #1 osteomyelitis of the right great toe related to neuropathy of diabetes-methicillin sensitive staph aureus-again patient is status post removal of right first ray, continue present antibiotic coverage, infectious diseases is seeing patient, PICC line will be inserted today, patient will need placement in a nursing home facility for antibiotic administration and rehab services #2 cellulitis of the right great toe related to neuropathy of diabetes-positive for methicillin sensitive staph aureus-again continue present antibiotic coverage #3 type 2 vzoxoemi-vfebypkahcar-afcyqxkt monitor blood sugars #4 neuropathy of diabetes #5 chronic obstructive pulmonary disease #6 essential hypertension #7 peripheral vascular disease-complicates care and recovery #8 hyperlipidemia Code Visit Inpatient E&M: 59322 Subs Hosp L2
[2019-09-13] MEDS: Zolpidem Tartrate 5 MG Tablet 10 MG PO (21:15)
[2019-09-13] MEDS: Atorvastatin Calcium 40 MG Tablet PO (21:16)
[2019-09-13] MEDS: 0.9% Saline Lock 10 ML Syringe IV (21:16)
[2019-09-13 21:40] LABS: Bedside Glucose 358 mg/dL (70-110)
[2019-09-14] VITALS (14 sets, daily range): BP systolic 130–142; BP diastolic 74–79; PULSE 78–106; RESP 18–20; TEMP 36.8–36.9; O2SAT 95–98
[2019-09-14] MEDS: 0.9% Normal Saline 1,000 ML 100 ML IV ×3 (00:06→20:45)
[2019-09-14 06:39] LABS: Prothrombin Time (Protime)PT. 22.3 SECONDS (11.7-14.9)
[2019-09-14] MEDS: Insulin Lispro 100 UNIT/ML INSULN.PEN SC ×4 (06:49→21:45)
[2019-09-14 06:56] LABS: Bedside Glucose 177 mg/dL (70-110)
[2019-09-14] MEDS: Ipratropium/Albuterol Sulfate 3 ML AMPUL.NEB INHALATION ×3 (07:02→20:04)
--- NOTE | 2019-09-14 07:18 | NURSING ---
Dr Meyers had been in last pm to change dressing. Orders are for weekly dressing changes per podiatry at this time. will sign off since wound care is not needed currently.
--- NOTE | 2019-09-14 07:29 | DCINST_ITS ---
Discharge Activity: Use Walker, Use Crutches, - - use knee roller Weight Bearing Status: No weight bearing Keep extremity elevated above heart level: Right Leg Call your doctor if your incision/area has: Continuous Slow Oozing, Sudden Increased Bleeding, Increased Pain/ Swelling, Increased Redness, Foul Smelling Discharge, Swelling at the incision site Call your doctor if you observe: Fever of 101 or Higher, Calf discomfort, Uncontrolled pain Cleanse incision/area with: Keep Dressing Clean & Dry Allergies/Adverse Reactions: Allergies No Known Allergies Allergy (Verified 09/11/19 11:58) Medications to take at Discharge Diltiazem 180 mg PO DAILY 09/26/13 Gabapentin [Neurontin] 600 mg PO TID 09/26/13 Warfarin [Coumadin] 8 mg PO QODAY 11/06/15 Zolpidem Tartrate [Ambien] 10 mg PO QHS 11/06/15 Omeprazole [Prilosec] 40 mg PO DAILY 03/13/18 Multivitamin [Daily Multiple Vitamin] 1 ea PO DAILY 07/17/19 Aspirin [Aspirin, Baby] 81 mg PO DAILY@0800 09/11/19 Clopidogrel Bisulfate [Plavix] 75 mg PO DAILY 09/11/19 Insulin Degludec/Liraglutide [Xultophy 100 Unit-3.6MG/ml Pen] 50 units SQ DAILY 09/11/19 Meloxicam [Mobic] 15 mg PO DAILY 09/11/19 Potassium Chloride [Klor-Con] 20 meq PO BID 09/11/19 Ranitidine [Zantac] 300 mg PO DAILY 09/11/19 Warfarin [Coumadin ([facility])] 7 mg PO QODAY 09/11/19 Primary Care Physician: Saurabh Hernandez Chi, MD [Primary Care Provider] - Test Results: Test results from this visit will be discussed in further detail at your follow- up appointment, if applicable. Please Follow Up With: Jordyn Meyers DPM When: [facility] 1 week. Call [phone] if questions and to schedule Proposed Discharge Date: 09/15/19
--- NOTE | 2019-09-14 07:29 | PCM.PROGNOTE ---
Patient Problems: Active and Suspected Problems (Last Updated 09/10/19 @ 10:05 by Allie Hobbs) Diabetic foot infection (Acute) Osteomyelitis (Acute) Right foot infection (Acute) Osteomyelitis (Acute) Abscess of right foot (Suspected) Subjective: This 68-year-old male with multiple comorbidities was seen bedside this morning postoperative day #2 first ray resection for treatment of osteomyelitis and nonhealing ulcer. He denies pain, fever, nausea, vomiting, shortness of breath or chest pain. He does have intermittent chills. He had a PICC line placed yesterday and is waiting for halfway facility placement - Physical Exam Vitals/I&O's: Vital Signs Temp Pulse Resp BP Pulse Ox 98.2 F 98 18 140/75 H 96 09/14/19 03:25 09/14/19 04:01 09/14/19 03:25 09/14/19 03:25 09/14/19 03:25 Oxygen Delivery Method Room Air Weight: 100.924 kg Body Mass Index (BMI) 31.0 Finger Stick Blood Glucose 239 Intake and Output for Last 24 Hours 09/12/19 09/13/19 09/14/19 23:59 23:59 23:59 Intake Total 3113.54 / 3713.54 2325 / 3325 2850 / 2850 Output Total 1575 / 2325 1600 / 2850 2550 / 2550 Balance 1538.54 / 1388.54 725 / 475 300 / 300 General: Alert, Oriented x3, Cooperative HEENT: Atraumatic Extremities: No cyanosis, Capillary Refill Less than 3 Seconds - All digits right foot, No Calf Tenderness, Diminished Peripheral Pulses, Edema Skin: - - Right foot dressing is clean, dry, and intact Musculoskeletal: No Tenderness to Palpation of Joints or Extremities, - - First ray resection Neurological: - - Lack of normal epicritic sensation light touch is consistent with neuropathy status Psych/Mental Status: Normal Affect, Appropriate Microbiology Past 72 Hours 09/12/19 12:45 Bone - Toe Gram Stain - Final 09/12/19 12:45 Bone - Toe Wound Culture - Preliminary Gram positive organism 09/12/19 12:39 Bone - Toe Gram Stain - Final 09/12/19 12:39 Bone - Toe Wound Culture - Preliminary Staphylococcus aureus Gram positive organism 09/11/19 14:50 Wound - Right Foot Gram Stain - Final 09/11/19 14:50 Wound - Right Foot Wound Culture - Final Staphylococcus aureus Morganella morganii sp morgani Laboratory Results 09/13/19 11:46: POC Glucose 272 H 09/13/19 16:06: POC Glucose 283 H 09/13/19 21:31: POC Glucose 358 H 09/14/19 06:05: PT 22.3 H, INR 2.0 09/14/19 06:44: POC Glucose 177 H Current Medications Acetaminophen (Tylenol) 650 mg PO Q6H PRN PRN PRN Reason: Pain Score 1-10/Temp > 100.7 F Last Admin: 09/13/19 10:34 Dose: 650 mg Documented by: Al Hydroxide/Mg Hydroxide (Mylanta Ii) 30 ml PO Q6H PRN PRN PRN Reason: Gastric Burning Albuterol Sulfate (Ventolin Aerosols) 2.5 mg INHALATION Q2H PRN PRN PRN Reason: dyspnea, wheezing Albuterol/Ipratropium (Duoneb) 3 ml INHALATION Q6HWA.RT [facility] Last Admin: 09/14/19 07:02 Dose: 3 ml Documented by: Atorvastatin Calcium (Lipitor) 40 mg PO QHS [facility] Last Admin: 09/13/19 21:16 Dose: 40 mg Documented by: Diltiazem HCl (Cardizem Cd) 180 mg PO DAILY [facility] Last Admin: 09/13/19 10:26 Dose: 180 mg Documented by: Gabapentin (Neurontin) 600 mg PO TIDCM [facility] Last Admin: 09/13/19 17:21 Dose: 600 mg Documented by: Glucagon () 1 mg IM .X1 PRN PRN Reason: Hypoglycemia Guaifenesin (Robitussin) 20 ml PO Q4H PRN PRN PRN Reason: COUGH Hydralazine HCl (Apresoline Iv) 10 mg IV Q4H PRN PRN PRN Reason: SBP > 160 Last Admin: 09/11/19 21:09 Dose: 10 mg Documented by: Piperacillin Sod/Tazobactam (Sod 3.375 gm/ Sodium Chloride) 50 mls @ 12.5 mls/hr IV Q8 [facility] Last Admin: 09/14/19 05:11 Dose: 12.5 mls/hr Documented by: Sodium Chloride () 1,000 mls @ 100 mls/hr IV .Q10H [facility] Last Admin: 09/14/19 00:06 Dose: 100 mls/hr Documented by: Dextrose (Dextrose 10%-Water) 250 mls @ 999 mls/hr IV .Q16M PRN; Protocol PRN Reason: HYPOGLYCEMIA Insulin Glargine (Lantus (Bk)) 50 units SC DAILY [facility] Last Admin: 09/13/19 10:26 Dose: 50 u Documented by: Insulin Human Lispro (Humalog Kwikpen ([facility])) 0 unit SC ACHS [facility]; Protocol Last Admin: 09/14/19 06:49 Dose: 1 units Documented by: Lisinopril (Zestril) 20 mg PO DAILY [facility] Last Admin: 09/13/19 10:26 Dose: 20 mg Documented by: Magnesium Hydroxide (Milk Of Magnesia) 30 ml PO DAILY PRN PRN PRN Reason: Constipation Melatonin (Melatonin) 3 mg PO QHS PRN PRN PRN Reason: INSOMNIA Morphine Sulfate () 2 mg IV Q3H PRN PRN PRN Reason: Pain Score 6-10/10 Multivitamins (Multivitamin) 1 tablet PO DAILY@0800 [facility] Last Admin: 09/13/19 08:54 Dose: 1 tablet Documented by: Nitroglycerin (Nitrostat) 0.4 mg SUBLINGUAL Q5M PRN PRN Reason: CARDIAC/CHEST PAIN Nutritional Formula (Renny - [place] Flavor) [facility] Last Admin: 09/13/19 17:21 Dose: 1 packet Documented by: Nutritional Formula (Lactose Free) (Glucerna Shake) 120 ml PO 4X/DAY [facility] Last Admin: 09/13/19 21:18 Dose: 120 ml Documented by: Ondansetron HCl (Zofran) 4 mg IV Q8H PRN PRN PRN Reason: NAUSEA/VOMITING Oxycodone HCl (Oxyir) 5 mg PO Q4H PRN PRN PRN Reason: Pain Score 4-5/10 Last Admin: 09/11/19 21:09 Dose: 5 mg Documented by: Pantoprazole Sodium (Protonix) 40 mg PO DAILY [facility] Last Admin: 09/13/19 10:26 Dose: 40 mg Documented by: Potassium Chloride (K-Dur) 20 meq PO BID [facility] Last Admin: 09/13/19 21:15 Dose: 20 meq Documented by: Prochlorperazine Edisylate (Compazine Iv) 5 mg IV Q4H PRN PRN PRN Reason: Breakthrough nausea/vomiting Psyllium Hydrophilic Mucilloid (Metamucil) 1 packet PO DAILY PRN PRN PRN Reason: Constipation Senna/Docusate Sodium (Senokot-S, Donna-Colace) 2 tablet PO BID PRN PRN PRN Reason: Constipation Sodium Chloride () 10 - 40 ml IV UD PRN PRN Reason: SALINE FLUSH Last Admin: 09/13/19 21:16 Dose: 10 ml Documented by: Throat Lozenges (Cepacol Sore Throat Lozenge) 1 lozenge MUCOUS MEM Q2H PRN PRN PRN Reason: SORE THROAT Warfarin Sodium (Coumadin ([facility])) 5 mg PO DAILY@1700 [facility] Last Admin: 09/13/19 17:21 Dose: 5 mg Documented by: Zolpidem Tartrate (Ambien (Generic)) 10 mg PO QHS [facility] Last Admin: 09/13/19 21:15 Dose: 10 mg Documented by: Medical Necessity - Tobacco Use Smoking Status: Former smoker - Patient smokes 1 to 1.5 pack/day cigarette tobacco usage since his youth, quit recently during prior admission. Tobacco Use: Non-smoker Assessment/Plan All Active Problems (Last Updated 09/10/19 @ 10:05 by Allie Hobbs) Diabetic foot infection (Acute) Osteomyelitis (Acute) Right foot infection (Acute) Osteomyelitis (Acute) Screen for colon cancer (Acute) Diabetic foot infection (Acute) Gangrene of toe (Acute) Diabetic ulcer of right foot (Acute) Osteomyelitis (Acute) PVD (peripheral vascular disease) (Acute) Type 2 diabetes mellitus with diabetic polyneuropathy (Acute) Ulcer of right foot with fat layer exposed (Acute) Type 2 diabetes mellitus with diabetic polyneuropathy (Acute) PVD (peripheral vascular disease) (Acute) Postoperative day #2 right foot first ray resection for treatment of osteomyelitis and nonhealing ulcer Chronic uncontrolled diabetes (hemoglobin A1c of 13.3% on June 2019) Other comorbidities include the following: chronic pain syndrome s/p back surgery, history of bilateral lower extremity deep venous thrombosis, chronic COPD, hypertension, hyperlipidemia, arthritis, GERD, former tobacco user, peripheral arterial disease now status post intervention I reviewed and discussed his case. He is afebrile overnight. His dressing is clean, dry, and intact and this was left in place. This will be changed biweekly to weekly at this time. His clearance fragment had bacterial growth. His clearance pathology fragment results are still pending. PICC line was ordered. Management by infectious diseases greatly appreciated. He was advised to maintain a strict nonweightbearing status. A surgical shoe was ordered for added protection. He has a walker already and has ordered a knee roller. His pain is controlled. prison facility placement is recommended and is pending. We will continue to follow him close while in house. Medical management per primary team is greatly appreciated. Please do not hesitate to call with any questions. Jordyn Meyers DPM, [facility] [phone]
[2019-09-14] MEDS: Multivitamins,Therapeutic Tablet 1 TABLET PO (08:12)
[2019-09-14] MEDS: Gabapentin 600 MG Tablet PO ×3 (08:13→16:31)
[2019-09-14] MEDS: Glucerna Shake 120 ML LIQUID PO ×4 (09:58→20:42)
[2019-09-14] MEDS: 0.9 % NaCl (Sterile) Posiflush 10 mL IV (09:59)
[2019-09-14] MEDS: Pantoprazole Sodium 40 MG Tablet PO (10:00)
[2019-09-14] MEDS: Lisinopril 20 MG Tablet PO (10:00)
[2019-09-14] MEDS: dilTIAZem CD 180 MG Capsule PO (10:01)
--- NOTE | 2019-09-14 10:46 | CASEMGMT ---
Addendum entered by Fatmata Sesay 09/14/19 16:56: Social Work Phone call from Macrina at [facility] who states that insurance has given approval for pt however Macrina states that pt is in his copay days and stay at SNF will be $172/day until deductible on $6500 has been met. KALANI met with pt and informed of this. Pt visible upset by this stating he cannot afford this. SW and pt discussed how much this would cost a week and pt states he could pay for a week but likely no longer. SW inquired about home health RN but pt states his cousin, with whom he lives, will not allow anyone into the home. Phone call to Dr. Cotter and situation explained. Dr. Cotter spoke with Dr. Johansen and reports to SW that no oral ATB can be used but IV ATB can be changed to once a day and pt can come in for outpt IV therapy once daily. Pt will be in the hospital through the weekend. SW met with the pt and explained above. Pt called his cousin who is agreeable to transport pt to hospital for IV ATB daily. Pt agreeable to this discharge plan. RN CM to follow up. Plan: Outpatient IV ATB MELISSA Jones Addendum entered by Fatmata Sesay 09/14/19 16:17: [facility] is able to accept pt and has submitted for precert with insurance. [facility] will call the floor if precert is obtained tonight otherwise pt will be here through the weekend. Pt made aware and also that insurance may not cover entire 6 weeks of needed IV ATB and pt will need to be thinking of next steps. Hens [id number] completed and placed on chart. MELISSA Jones Original Note: Social Work Physician made referral as pt will need IV ATB and wound care prior to return home. KALANI met with pt who is agreeable to SNF placement and would like to go to [facility]. Written list of in network facilities given to pt. Referral made to Macrina at [facility] and they do have beds available. Macrina to review referral and will let SW know if they can accept. Plan: [facility], pending acceptance and insurance preauth MELISSA Jones
[2019-09-14 11:50] LABS: Bedside Glucose 297 mg/dL (70-110)
--- NOTE | 2019-09-14 12:04 | PCM.PROGNOTE ---
Patient Problems: Active and Suspected Problems (Last Updated 09/10/19 @ 10:05 by Allie Hobbs) Diabetic foot infection (Acute) Osteomyelitis (Acute) Right foot infection (Acute) Osteomyelitis (Acute) Abscess of right foot (Suspected) Subjective: Patient was seen and examined today, I briefly talked with infectious diseases about his care. Patient will need to go to an extended care facility for rehab services and IV antibiotic treatment, he had a PICC line inserted yesterday. Patient has no complaints of any fever or chills at this time, he does not complain of any foot discomfort. - Physical Exam Vitals/I&O's: Vital Signs Temp Pulse Resp BP Pulse Ox 98.3 F 103 H 18 132/74 H 98 09/14/19 09:25 09/14/19 10:00 09/14/19 09:25 09/14/19 09:25 09/14/19 09:25 Oxygen Delivery Method Room Air Weight: 100.924 kg Body Mass Index (BMI) 31.0 Finger Stick Blood Glucose 239 Intake and Output for Last 24 Hours 09/12/19 09/13/19 09/14/19 23:59 23:59 23:59 Intake Total 3113.54 / 3713.54 2325 / 3325 3900 / 3900 Output Total 1575 / 2325 1600 / 2850 2550 / 2550 Balance 1538.54 / 1388.54 725 / 475 1350 / 1350 General: Alert, Oriented x3, Cooperative, No apparent distress, Well nourished HEENT: Atraumatic, PERRLA, EOMI, Normocephalic Oral: Moist Mucosa Neck: Supple, No JVD, Trachea Midline, Thyroid Normal Size and Texture Lungs: Clear to auscultation, Normal air movement, No rhonchi, No wheeze, No rales Cardiovascular: Regular rate, Regular Rhythm, Normal S1, Normal S2, No murmurs, PMI Normal, No rub noted, No Gallop Abdomen: Bowel Sounds Present, Soft, Non Tender, Non-Distended, No hernias noted Extremities: No clubbing, No cyanosis Skin: No rashes, - - Right foot is wrapped in surgical dressing, this was not removed for examination Musculoskeletal: No Tenderness to Palpation of Joints or Extremities Neurological: Cranial nerves II-XII grossly intact, Neuro grossly intact, Sensory exam intact to light touch and pain, Coordination normal Psych/Mental Status: Normal Affect, Appropriate, Alert and oriented to time, place, person, mood and affect Microbiology Past 72 Hours 09/12/19 12:39 Bone - Toe Gram Stain - Final 09/12/19 12:39 Bone - Toe Wound Culture - Preliminary Staphylococcus aureus Streptococcus group B 09/12/19 12:45 Bone - Toe Gram Stain - Final 09/12/19 12:45 Bone - Toe Wound Culture - Preliminary Streptococcus group B 09/12/19 12:45 Bone - Toe Anaerobic Culture - Preliminary No anaerobic bacteria isolated. 09/11/19 14:50 Wound - Right Foot Gram Stain - Final 09/11/19 14:50 Wound - Right Foot Wound Culture - Final Staphylococcus aureus Morganella morganii sp morgani Laboratory Results 09/13/19 16:06: POC Glucose 283 H 09/13/19 21:31: POC Glucose 358 H 09/14/19 06:05: PT 22.3 H, INR 2.0 09/14/19 06:44: POC Glucose 177 H 09/14/19 11:45: POC Glucose 297 H Current Medications Acetaminophen (Tylenol) 650 mg PO Q6H PRN PRN PRN Reason: Pain Score 1-10/Temp > 100.7 F Last Admin: 09/13/19 10:34 Dose: 650 mg Documented by: Al Hydroxide/Mg Hydroxide (Mylanta Ii) 30 ml PO Q6H PRN PRN PRN Reason: Gastric Burning Albuterol Sulfate (Ventolin Aerosols) 2.5 mg INHALATION Q2H PRN PRN PRN Reason: dyspnea, wheezing Albuterol/Ipratropium (Duoneb) 3 ml INHALATION Q6HWA.RT [facility] Last Admin: 09/14/19 07:02 Dose: 3 ml Documented by: Atorvastatin Calcium (Lipitor) 40 mg PO QHS [facility] Last Admin: 09/13/19 21:16 Dose: 40 mg Documented by: Diltiazem HCl (Cardizem Cd) 180 mg PO DAILY [facility] Last Admin: 09/14/19 10:01 Dose: 180 mg Documented by: Gabapentin (Neurontin) 600 mg PO TIDCM [facility] Last Admin: 09/14/19 11:50 Dose: 600 mg Documented by: Glucagon () 1 mg IM .X1 PRN PRN Reason: Hypoglycemia Guaifenesin (Robitussin) 20 ml PO Q4H PRN PRN PRN Reason: COUGH Heparin Sodium (Beef Lung) () 50 units IV UD PRN PRN Reason: PICC Line Heparin Flush Hydralazine HCl (Apresoline Iv) 10 mg IV Q4H PRN PRN PRN Reason: SBP > 160 Last Admin: 09/11/19 21:09 Dose: 10 mg Documented by: Piperacillin Sod/Tazobactam (Sod 3.375 gm/ Sodium Chloride) 50 mls @ 12.5 mls/hr IV Q8 [facility] Last Infusion: 09/14/19 09:11 Dose: Infused Documented by: Sodium Chloride () 1,000 mls @ 100 mls/hr IV .Q10H [facility] Last Admin: 09/14/19 11:48 Dose: 100 mls/hr Documented by: Dextrose (Dextrose 10%-Water) 250 mls @ 999 mls/hr IV .Q16M PRN; Protocol PRN Reason: HYPOGLYCEMIA Insulin Glargine (Lantus (Bk)) 50 units SC DAILY [facility] Last Admin: 09/14/19 09:59 Dose: 50 u Documented by: Insulin Human Lispro (Humalog Kwikpen (Bk)) 0 unit SC ACHS [facility]; Protocol Last Admin: 09/14/19 11:48 Dose: 4 units Documented by: Lisinopril (Zestril) 20 mg PO DAILY [facility] Last Admin: 09/14/19 10:00 Dose: 20 mg Documented by: Magnesium Hydroxide (Milk Of Magnesia) 30 ml PO DAILY PRN PRN PRN Reason: Constipation Melatonin (Melatonin) 3 mg PO QHS PRN PRN PRN Reason: INSOMNIA Morphine Sulfate () 2 mg IV Q3H PRN PRN PRN Reason: Pain Score 6-10/10 Multivitamins (Multivitamin) 1 tablet PO DAILY@0800 [facility] Last Admin: 09/14/19 08:12 Dose: 1 tablet Documented by: Nitroglycerin (Nitrostat) 0.4 mg SUBLINGUAL Q5M PRN PRN Reason: CARDIAC/CHEST PAIN Nutritional Formula (Renny - [place] Flavor) 1 packet PO BIDCM [facility] Last Admin: 09/14/19 08:12 Dose: 1 packet Documented by: Nutritional Formula (Lactose Free) (Glucerna Shake) 120 ml PO 4X/DAY [facility] Last Admin: 09/14/19 09:58 Dose: 120 ml Documented by: Ondansetron HCl (Zofran) 4 mg IV Q8H PRN PRN PRN Reason: NAUSEA/VOMITING Oxycodone HCl (Oxyir) 5 mg PO Q4H PRN PRN PRN Reason: Pain Score 4-5/10 Last Admin: 09/11/19 21:09 Dose: 5 mg Documented by: Pantoprazole Sodium (Protonix) 40 mg PO DAILY [facility] Last Admin: 09/14/19 10:00 Dose: 40 mg Documented by: Potassium Chloride (K-Dur) 20 meq PO BID [facility] Last Admin: 09/14/19 10:00 Dose: 20 meq Documented by: Prochlorperazine Edisylate (Compazine Iv) 5 mg IV Q4H PRN PRN PRN Reason: Breakthrough nausea/vomiting Psyllium Hydrophilic Mucilloid (Metamucil) 1 packet PO DAILY PRN PRN PRN Reason: Constipation Senna/Docusate Sodium (Senokot-S, Donna-Colace) 2 tablet PO BID PRN PRN PRN Reason: Constipation Sodium Chloride () 10 - 40 ml IV UD PRN PRN Reason: SALINE FLUSH Last Admin: 09/13/19 21:16 Dose: 10 ml Documented by: Sodium Chloride () 10 - 40 ml IV UD PRN PRN Reason: Open End PICC Flush Sodium Chloride (0.9% Nacl (Sterile) Posiflush) 10 - 40 ml IV UD PRN PRN Reason: Port access or dressing change Last Admin: 09/14/19 09:59 Dose: 10 ml Documented by: Throat Lozenges (Cepacol Sore Throat Lozenge) 1 lozenge MUCOUS MEM Q2H PRN PRN PRN Reason: SORE THROAT Warfarin Sodium (Coumadin (Pbkc)) 5 mg PO DAILY@1700 [facility] Last Admin: 09/13/19 17:21 Dose: 5 mg Documented by: Zolpidem Tartrate (Ambien (Generic)) 10 mg PO QHS [facility] Last Admin: 09/13/19 21:15 Dose: 10 mg Documented by: Medical Necessity - Tobacco Use Smoking Status: Former smoker - Patient smokes 1 to 1.5 pack/day cigarette tobacco usage since his youth, quit recently during prior admission. Tobacco Use: Non-smoker Assessment/Plan All Active Problems (Last Updated 09/10/19 @ 10:05 by Allie Hobbs) Diabetic foot infection (Acute) Osteomyelitis (Acute) Right foot infection (Acute) Osteomyelitis (Acute) Screen for colon cancer (Acute) Diabetic foot infection (Acute) Gangrene of toe (Acute) Diabetic ulcer of right foot (Acute) Osteomyelitis (Acute) PVD (peripheral vascular disease) (Acute) Type 2 diabetes mellitus with diabetic polyneuropathy (Acute) Ulcer of right foot with fat layer exposed (Acute) Type 2 diabetes mellitus with diabetic polyneuropathy (Acute) PVD (peripheral vascular disease) (Acute) #1 osteomyelitis of the right great toe related to neuropathy of diabetes-methicillin sensitive staph aureus and Morganella-again patient is status post removal of right first ray, continue present antibiotic coverage, infectious diseases is seeing patient, patient will [facility], approval for this will more than likely come next week. #2 cellulitis of the right great toe related to neuropathy of diabetes-positive for methicillin sensitive staph aureus and Morganella-again continue present antibiotic coverage #3 type 2 dfqmmkza-[id number]-[id number] monitor blood sugars #4 neuropathy of diabetes #5 chronic obstructive pulmonary disease #6 essential hypertension #7 peripheral vascular disease-complicates care and recovery #8 hyperlipidemia Code Visit Inpatient E&M: 58548 Subs Hosp L2
--- NOTE | 2019-09-14 16:06 | PN.ID_ITS ---
Patient Problems: Active and Suspected Problems (Last Updated 09/10/19 @ 10:05 by Allie Hobbs) Diabetic foot infection (Acute) Osteomyelitis (Acute) Right foot infection (Acute) Osteomyelitis (Acute) Abscess of right foot (Suspected) Subjective: Feeling ok, no fever, no n/v/d, picc in place - Physical Exam Vitals/I&O's: Vital Signs Temp Pulse Resp BP Pulse Ox 98.3 F 96 18 132/74 H 98 09/14/19 09:25 09/14/19 14:00 09/14/19 13:20 09/14/19 09:25 09/14/19 09:25 Oxygen Delivery Method Room Air Weight: 100.924 kg Body Mass Index (BMI) 31.0 Finger Stick Blood Glucose 239 Intake and Output for Last 24 Hours 09/12/19 09/13/19 09/14/19 23:59 23:59 23:59 Intake Total 3113.54 / 3713.54 2325 / 3325 4700 / 4700 Output Total 1575 / 2325 1600 / 2850 3750 / 3750 Balance 1538.54 / 1388.54 725 / 475 950 / 950 General: Alert, Cooperative, No apparent distress Lungs: Clear to auscultation, Normal air movement Cardiovascular: Regular rate, Regular Rhythm Abdomen: Soft, Non Tender, Non-Distended Skin: Ulcer/ Wound - foot wrapped Microbiology Past 72 Hours 09/12/19 12:39 Bone - Toe Gram Stain - Final 09/12/19 12:39 Bone - Toe Wound Culture - Preliminary Staphylococcus aureus Streptococcus group B 09/12/19 12:39 Bone - Toe Anaerobic Culture - Preliminary No anaerobic bacteria isolated. 09/12/19 12:45 Bone - Toe Gram Stain - Final 09/12/19 12:45 Bone - Toe Wound Culture - Preliminary Streptococcus group B 09/12/19 12:45 Bone - Toe Anaerobic Culture - Preliminary No anaerobic bacteria isolated. 09/11/19 14:50 Wound - Right Foot Gram Stain - Final 09/11/19 14:50 Wound - Right Foot Wound Culture - Final Staphylococcus aureus Morganella morganii sp morgani Laboratory Results 09/13/19 16:06: POC Glucose 283 H 09/13/19 21:31: POC Glucose 358 H 09/14/19 06:05: PT 22.3 H, INR 2.0 09/14/19 06:44: POC Glucose 177 H 09/14/19 11:45: POC Glucose 297 H Current Medications Acetaminophen (Tylenol) 650 mg PO Q6H PRN PRN PRN Reason: Pain Score 1-10/Temp > 100.7 F Last Admin: 09/13/19 10:34 Dose: 650 mg Documented by: Al Hydroxide/Mg Hydroxide (Mylanta Ii) 30 ml PO Q6H PRN PRN PRN Reason: Gastric Burning Albuterol Sulfate (Ventolin Aerosols) 2.5 mg INHALATION Q2H PRN PRN PRN Reason: dyspnea, wheezing Albuterol/Ipratropium (Duoneb) 3 ml INHALATION Q6HWA.RT [facility] Last Admin: 09/14/19 13:20 Dose: 3 ml Documented by: Atorvastatin Calcium (Lipitor) 40 mg PO QHS [facility] Last Admin: 09/13/19 21:16 Dose: 40 mg Documented by: Diltiazem HCl (Cardizem Cd) 180 mg PO DAILY [facility] Last Admin: 09/14/19 10:01 Dose: 180 mg Documented by: Gabapentin (Neurontin) 600 mg PO TIDCM [facility] Last Admin: 09/14/19 11:50 Dose: 600 mg Documented by: Glucagon () 1 mg IM .X1 PRN PRN Reason: Hypoglycemia Guaifenesin (Robitussin) 20 ml PO Q4H PRN PRN PRN Reason: COUGH Heparin Sodium (Beef Lung) () 50 units IV UD PRN PRN Reason: PICC Line Heparin Flush Hydralazine HCl (Apresoline Iv) 10 mg IV Q4H PRN PRN PRN Reason: SBP > 160 Last Admin: 09/11/19 21:09 Dose: 10 mg Documented by: Piperacillin Sod/Tazobactam (Sod 3.375 gm/ Sodium Chloride) 50 mls @ 12.5 mls/hr IV Q8 [facility] Last Admin: 09/14/19 13:52 Dose: 12.5 mls/hr Documented by: Sodium Chloride () 1,000 mls @ 100 mls/hr IV .Q10H [facility] Last Admin: 09/14/19 11:48 Dose: 100 mls/hr Documented by: Dextrose (Dextrose 10%-Water) 250 mls @ 999 mls/hr IV .Q16M PRN; Protocol PRN Reason: HYPOGLYCEMIA Insulin Glargine (Lantus (Bk)) 50 units SC DAILY [facility] Last Admin: 09/14/19 09:59 Dose: 50 u Documented by: Insulin Human Lispro (Humalog Kwikpen (Bk)) 0 unit SC [facility]; Protocol Last Admin: 09/14/19 11:48 Dose: 4 units Documented by: Lisinopril (Zestril) 20 mg PO DAILY [facility] Last Admin: 09/14/19 10:00 Dose: 20 mg Documented by: Magnesium Hydroxide (Milk Of Magnesia) 30 ml PO DAILY PRN PRN PRN Reason: Constipation Melatonin (Melatonin) 3 mg PO QHS PRN PRN PRN Reason: INSOMNIA Morphine Sulfate () 2 mg IV Q3H PRN PRN PRN Reason: Pain Score 6-10/10 Multivitamins (Multivitamin) 1 tablet PO DAILY@0800 [facility] Last Admin: 09/14/19 08:12 Dose: 1 tablet Documented by: Nitroglycerin (Nitrostat) 0.4 mg SUBLINGUAL Q5M PRN PRN Reason: CARDIAC/CHEST PAIN Nutritional Formula (Renny - [place] Flavor) [facility] Last Admin: 09/14/19 08:12 Dose: 1 packet Documented by: Nutritional Formula (Lactose Free) (Glucerna Shake) 120 ml PO 4X/DAY [facility] Last Admin: 09/14/19 13:52 Dose: 120 ml Documented by: Ondansetron HCl (Zofran) 4 mg IV Q8H PRN PRN PRN Reason: NAUSEA/VOMITING Oxycodone HCl (Oxyir) 5 mg PO Q4H PRN PRN PRN Reason: Pain Score 4-5/10 Last Admin: 09/11/19 21:09 Dose: 5 mg Documented by: Pantoprazole Sodium (Protonix) 40 mg PO DAILY [facility] Last Admin: 09/14/19 10:00 Dose: 40 mg Documented by: Potassium Chloride (K-Dur) 20 meq PO BID [facility] Last Admin: 09/14/19 10:00 Dose: 20 meq Documented by: Prochlorperazine Edisylate (Compazine Iv) 5 mg IV Q4H PRN PRN PRN Reason: Breakthrough nausea/vomiting Psyllium Hydrophilic Mucilloid (Metamucil) 1 packet PO DAILY PRN PRN PRN Reason: Constipation Senna/Docusate Sodium (Senokot-S, Donna-Colace) 2 tablet PO BID PRN PRN PRN Reason: Constipation Sodium Chloride () 10 - 40 ml IV UD PRN PRN Reason: SALINE FLUSH Last Admin: 09/13/19 21:16 Dose: 10 ml Documented by: Sodium Chloride () 10 - 40 ml IV UD PRN PRN Reason: Open End PICC Flush Sodium Chloride (0.9% Nacl (Sterile) Posiflush) 10 - 40 ml IV UD PRN PRN Reason: Port access or dressing change Last Admin: 09/14/19 09:59 Dose: 10 ml Documented by: Throat Lozenges (Cepacol Sore Throat Lozenge) 1 lozenge MUCOUS MEM Q2H PRN PRN PRN Reason: SORE THROAT Warfarin Sodium (Coumadin (Pbkc)) 5 mg PO DAILY@1700 [facility] Last Admin: 09/13/19 17:21 Dose: 5 mg Documented by: Zolpidem Tartrate (Ambien (Generic)) 10 mg PO QHS [facility] Last Admin: 09/13/19 21:15 Dose: 10 mg Documented by: Medical Necessity - Tobacco Use Smoking Status: Former smoker - Patient smokes 1 to 1.5 pack/day cigarette tobacco usage since his youth, quit recently during prior admission. Tobacco Use: Non-smoker Route of nutrition/ use of supplements: [] Nutritional Intake: [] IV Site: [] Abreu Catheter: [] - Assessment/Plan Antibiotics: [] Assessment/Plan: [] Active and Suspected Problems (Last Updated 09/10/19 @ 10:05 by Allie Hobbs) Diabetic foot infection (Acute) Osteomyelitis (Acute) Right foot infection (Acute) Osteomyelitis (Acute) Abscess of right foot (Suspected) R foot osteo - now s/p 1st ray resection by Dr. Meyers 09/12/19. Wound cx so far showing morganella, GBS, and mSSA. Cont zosyn. Surg cx (+) and path pending. Ok for d/c to [facility] with picc in place on 6 weeks of zosyn, stop date 10/25/19, weekly bmp, cbc, and esr. ID followup with me in 2 weeks. Will follow, d/w human services case manager
[2019-09-14 16:31] LABS: Bedside Glucose 307 mg/dL (70-110)
[2019-09-14] MEDS: Atorvastatin Calcium 40 MG Tablet PO (20:38)
[2019-09-14] MEDS: Zolpidem Tartrate 5 MG Tablet 10 MG PO (20:42)
[2019-09-14 21:50] LABS: Bedside Glucose 354 mg/dL (70-110)
[2019-09-15] VITALS (15 sets, daily range): BP systolic 126–171; BP diastolic 64–108; PULSE 84–116; RESP 18–30; TEMP 36.6–37.3; O2SAT 93–97
[2019-09-15] MEDS: hydrALAZINE 20 MG/ML Vial 10 MG IV (02:49)
[2019-09-15] MEDS: Acetaminophen 325 MG Tablet 650 MG PO (02:53)
--- NOTE | 2019-09-15 03:15 | RAD_ITS ---
STUDY: X-RAY CHEST REASON FOR EXAM: Male, 68 years old. SOB TECHNIQUE: Single AP portable view of the chest. COMPARISON: 09/25/2013. FINDINGS: The lungs are normally expanded with fullness of the central markings which may indicate mild vascular congestion versus bronchitis. There is no demonstrated pleural abnormality. Normal size heart. Normal mediastinum and thu. Normal visualized pulmonary arteries. Normal visualized aortic arch and descending thoracic aorta. Normal visualized thoracic spine. Normal visualized ribs, clavicles, and shoulders. There is no demonstrated abnormality of the visualized soft tissue structures of the upper abdomen. RAD/Chest 1 View (Portable) IMPRESSION: Mild vascular congestion versus bronchitis. Electronically Signed: Rosalba River MD at 3:46 EST , Service support ,
[2019-09-15] MEDS: Ipratropium/Albuterol Sulfate 3 ML AMPUL.NEB INHALATION ×3 (03:47→19:21)
[2019-09-15 03:50] LABS: Prothrombin Time (Protime)PT. 22.4 SECONDS (11.7-14.9)
[2019-09-15 04:49] LABS: BNP,B-Type NATRIURETIC PEPTIDE 411.5 pg/mL (0-100)
[2019-09-15] MEDS: Furosemide 40 MG/4 ML Vial IV (05:49)
[2019-09-15] MEDS: 0.9% Saline Lock 10 ML Syringe IV ×2 (05:50→13:35)
[2019-09-15] MEDS: Insulin Lispro 100 UNIT/ML INSULN.PEN SC ×4 (06:24→21:45)
[2019-09-15 06:30] LABS: Bedside Glucose 215 mg/dL (70-110)
[2019-09-15] MEDS: dilTIAZem CD 180 MG Capsule PO (08:55)
[2019-09-15] MEDS: Multivitamins,Therapeutic Tablet 1 TABLET PO (08:55)
[2019-09-15] MEDS: Gabapentin 600 MG Tablet PO ×3 (08:55→17:01)
[2019-09-15] MEDS: Lisinopril 20 MG Tablet PO (08:56)
[2019-09-15] MEDS: Pantoprazole Sodium 40 MG Tablet PO (08:56)
[2019-09-15] MEDS: Glucerna Shake 120 ML LIQUID PO ×4 (09:05→20:51)
--- NOTE | 2019-09-15 11:45 | PN_ITS ---
Patient Problems: Active and Suspected Problems (Last Updated 09/10/19 @ 10:05 by Allie Hobbs) Diabetic foot infection (Acute) Osteomyelitis (Acute) Right foot infection (Acute) Osteomyelitis (Acute) Abscess of right foot (Suspected) Subjective: Patient was seen today for follow up on foot, s/p 1st ray amp, no complaints. He is waiting for nursing placement. - Physical Exam Vitals/I&O's: Vital Signs Temp Pulse Resp BP Pulse Ox 97.9 F 91 20 H 137/65 H 95 09/15/19 14:58 09/15/19 16:01 09/15/19 14:58 09/15/19 14:58 09/15/19 14:58 Oxygen Delivery Method Room Air Weight: 100.924 kg Body Mass Index (BMI) 31.0 Finger Stick Blood Glucose 239 Intake and Output for Last 24 Hours 09/13/19 09/14/19 09/15/19 23:59 23:59 23:59 Intake Total 2325 / 3325 6945 / 6945 1455.92 / 1455.92 Output Total 1600 / 2850 6850 / 6850 4850 / 4850 Balance 725 / 475 95 / 95 -3394.08 / -3394.08 General: Alert, Oriented x3, Cooperative, No apparent distress Extremities: No Calf Tenderness, - - s/p partial 1st ray amp R foot, healing well, sutures intact, no dehiscence, no cellulitis, no drainage, no evidence of complication. No acute ischemia to right foot. Psych/Mental Status: Normal Affect, Alert and oriented to time, place, person, mood and affect Microbiology Past 72 Hours 09/12/19 12:45 Bone - Toe Gram Stain - Final 09/12/19 12:45 Bone - Toe Wound Culture - Final Streptococcus agalactiae (B) 09/12/19 12:45 Bone - Toe Anaerobic Culture - Preliminary No anaerobic bacteria isolated. 09/12/19 12:39 Bone - Toe Gram Stain - Final 09/12/19 12:39 Bone - Toe Wound Culture - Final Staphylococcus aureus Streptococcus agalactiae (B) 09/12/19 12:39 Bone - Toe Anaerobic Culture - Preliminary No anaerobic bacteria isolated. 09/11/19 14:50 Wound - Right Foot Gram Stain - Final 09/11/19 14:50 Wound - Right Foot Wound Culture - Final Staphylococcus aureus Morganella morganii sp morgani Laboratory Results 09/14/19 21:44: POC Glucose 354 H 09/15/19 03:31: PT 22.4 H, INR 2.0 09/15/19 03:31: B-Natriuretic Peptide 411.5 H 09/15/19 06:23: POC Glucose 215 H 09/15/19 11:51: POC Glucose 327 H 09/15/19 16:58: POC Glucose 294 H Current Medications Acetaminophen (Tylenol) 650 mg PO Q6H PRN PRN PRN Reason: Pain Score 1-10/Temp > 100.7 F Last Admin: 09/15/19 02:53 Dose: 650 mg Documented by: Al Hydroxide/Mg Hydroxide (Mylanta Ii) 30 ml PO Q6H PRN PRN PRN Reason: Gastric Burning Albuterol/Ipratropium (Duoneb) 3 ml INHALATION Q6HWA.RT [facility] Last Admin: 09/15/19 13:10 Dose: Not Given Documented by: Albuterol/Ipratropium (Duoneb) 3 ml INHALATION Q4H PRN PRN PRN Reason: SOB &/OR WHEEZING Last Admin: 09/15/19 03:47 Dose: 3 ml Documented by: Atorvastatin Calcium (Lipitor) 40 mg PO QHS [facility] Last Admin: 09/14/19 20:38 Dose: 40 mg Documented by: Diltiazem HCl (Cardizem Cd) 180 mg PO DAILY [facility] Last Admin: 09/15/19 08:55 Dose: 180 mg Documented by: Gabapentin (Neurontin) 600 mg PO TIDCM [facility] Last Admin: 09/15/19 17:01 Dose: 600 mg Documented by: Glucagon () 1 mg IM .X1 PRN PRN Reason: Hypoglycemia Guaifenesin (Robitussin) 20 ml PO Q4H PRN PRN PRN Reason: COUGH Heparin Sodium (Beef Lung) () 50 units IV UD PRN PRN Reason: PICC Line Heparin Flush Hydralazine HCl (Apresoline Iv) 10 mg IV Q4H PRN PRN PRN Reason: SBP > 160 Last Admin: 09/15/19 02:49 Dose: 10 mg Documented by: Piperacillin Sod/Tazobactam (Sod 3.375 gm/ Sodium Chloride) 50 mls @ 12.5 mls/hr IV Q8 [facility] Last Infusion: 09/15/19 17:34 Dose: Infused Documented by: Dextrose (Dextrose 10%-Water) 250 mls @ 999 mls/hr IV .Q16M PRN; Protocol PRN Reason: HYPOGLYCEMIA Sodium Chloride () 250 mls @ 15 mls/hr IV .[id number] PRN PRN Reason: Saline Flush Insulin Glargine (Lantus ([facility])) 50 units SC DAILY [facility] Last Admin: 09/15/19 08:56 Dose: 50 u Documented by: Insulin Human Lispro (Humalog Kwikpen ([facility])) 0 unit SC ACHS [facility]; Protocol Last Admin: 09/15/19 17:00 Dose: 4 units Documented by: Lisinopril (Zestril) 20 mg PO DAILY [facility] Last Admin: 09/15/19 08:56 Dose: 20 mg Documented by: Magnesium Hydroxide (Milk Of Magnesia) 30 ml PO DAILY PRN PRN PRN Reason: Constipation Melatonin (Melatonin) 3 mg PO QHS PRN PRN PRN Reason: INSOMNIA Morphine Sulfate () 2 mg IV Q3H PRN PRN PRN Reason: Pain Score 6-10/10 Multivitamins (Multivitamin) 1 tablet PO DAILY@0800 [facility] Last Admin: 09/15/19 08:55 Dose: 1 tablet Documented by: Nitroglycerin (Nitrostat) 0.4 mg SUBLINGUAL Q5M PRN PRN Reason: CARDIAC/CHEST PAIN Nutritional Formula (Renny - [place] Flavor) 1 packet PO BIDCM [facility] Last Admin: 09/15/19 17:01 Dose: 1 packet Documented by: Nutritional Formula (Lactose Free) (Glucerna Shake) 120 ml PO 4X/DAY [facility] Last Admin: 09/15/19 17:02 Dose: 120 ml Documented by: Ondansetron HCl (Zofran) 4 mg IV Q8H PRN PRN PRN Reason: NAUSEA/VOMITING Oxycodone HCl (Oxyir) 5 mg PO Q4H PRN PRN PRN Reason: Pain Score 4-5/10 Last Admin: 09/11/19 21:09 Dose: 5 mg Documented by: Pantoprazole Sodium (Protonix) 40 mg PO DAILY [facility] Last Admin: 09/15/19 08:56 Dose: 40 mg Documented by: Potassium Chloride (K-Dur) 20 meq PO BID [facility] Last Admin: 09/15/19 08:56 Dose: 20 meq Documented by: Prochlorperazine Edisylate (Compazine Iv) 5 mg IV Q4H PRN PRN PRN Reason: Breakthrough nausea/vomiting Psyllium Hydrophilic Mucilloid (Metamucil) 1 packet PO DAILY PRN PRN PRN Reason: Constipation Senna/Docusate Sodium (Senokot-S, Donna-Colace) 2 tablet PO BID PRN PRN PRN Reason: Constipation Sodium Chloride () 10 - 40 ml IV UD PRN PRN Reason: SALINE FLUSH Last Admin: 09/15/19 13:35 Dose: 20 ml Documented by: Sodium Chloride () 10 - 40 ml IV UD PRN PRN Reason: Open End PICC Flush Sodium Chloride (0.9% Nacl (Sterile) Posiflush) 10 - 40 ml IV UD PRN PRN Reason: Port access or dressing change Last Admin: 09/14/19 09:59 Dose: 10 ml Documented by: Throat Lozenges (Cepacol Sore Throat Lozenge) 1 lozenge MUCOUS MEM Q2H PRN PRN PRN Reason: SORE THROAT Warfarin Sodium (Coumadin (Pbkc)) 5 mg PO DAILY@1700 [facility] Last Admin: 09/15/19 17:00 Dose: 5 mg Documented by: Zolpidem Tartrate (Ambien (Generic)) 10 mg PO QHS [facility] Last Admin: 09/14/19 20:42 Dose: 10 mg Documented by: Medical Necessity - Tobacco Use Smoking Status: Former smoker - Patient smokes 1 to 1.5 pack/day cigarette tobacco usage since his youth, quit recently during prior admission. Tobacco Use: Non-smoker Assessment/Plan All Active Problems (Last Updated 09/10/19 @ 10:05 by Allie Hobbs) Diabetic foot infection (Acute) Osteomyelitis (Acute) Right foot infection (Acute) Osteomyelitis (Acute) Screen for colon cancer (Acute) Diabetic foot infection (Acute) Gangrene of toe (Acute) Diabetic ulcer of right foot (Acute) Osteomyelitis (Acute) PVD (peripheral vascular disease) (Acute) Type 2 diabetes mellitus with diabetic polyneuropathy (Acute) Ulcer of right foot with fat layer exposed (Acute) Type 2 diabetes mellitus with diabetic polyneuropathy (Acute) PVD (peripheral vascular disease) (Acute) Postoperative day #3 right foot first ray resection for treatment of osteomyelitis and nonhealing ulcer Chronic uncontrolled diabetes (hemoglobin A1c of 13.3% on June 2019) Other comorbidities include the following: chronic pain syndrome s/p back surgery, history of bilateral lower extremity deep venous thrombosis, chronic COPD, hypertension, hyperlipidemia, arthritis, GERD, former tobacco user, peripheral arterial disease now status post intervention I reviewed and discussed his case. Foot healing, applied clean, dry sterile gauze, kerlix and jesu dressing - change q 1-2 times a week. No weightbearing right foot. Follow cultures, antibiotics per ID service. Patient to follow up w/ Dr. Meyers 1 week from d/c, sooner if needed.
--- NOTE | 2019-09-15 12:03 | PCM.PROGNOTE ---
Patient Problems: Active and Suspected Problems (Last Updated 09/10/19 @ 10:05 by Allie Hobbs) Diabetic foot infection (Acute) Osteomyelitis (Acute) Right foot infection (Acute) Osteomyelitis (Acute) Abscess of right foot (Suspected) Subjective: Patient was seen and examined today, he evidently had some wheezing last night and 1 dose of Lasix, a chest x-ray was ordered, and an echocardiogram was ordered today. I do not think the patient needs an echocardiogram, he is on room air, he has a long history of smoking, he also has a history of sleep apnea and does not use CPAP. Think is more likely the patient has underlying COPD causing the wheezing. Patient denies any fevers or chills. His chest x-ray was read out as mild vascular congestion versus bronchitis-I think that is more likely the patient has chronic lung disease, his last chest x-ray for comparison was 09/25/2013. Yesterday we learned that the patient would have to pay a large amount of money on a daily basis to stay in a intermediate, he is not able to do this and so I talked with infectious diseases, patient will be treated with once a day ertapenem, we will have to get this arranged Tuesday. Objective: General: Alert, Oriented x3, Cooperative, No apparent distress, Well nourished HEENT: Atraumatic, PERRLA, EOMI, Normocephalic Oral: Moist Mucosa Neck: Supple, No JVD, Trachea Midline, Thyroid Normal Size and Texture Lungs: Clear to auscultation, Normal air movement, No rhonchi, No wheeze, No rales Cardiovascular: Regular rate, Regular Rhythm, Normal S1, Normal S2, No murmurs, PMI Normal, No rub noted, No Gallop Abdomen: Bowel Sounds Present, Soft, Non Tender, Non-Distended, No hernias noted Extremities: No clubbing, No cyanosis Skin: No rashes, - - Right foot is wrapped in surgical dressing, this was not removed for examination Musculoskeletal: No Tenderness to Palpation of Joints or Extremities Neurological: Cranial nerves II-XII grossly intact, Neuro grossly intact, Sensory exam intact to light touch and pain, Coordination normal Psych/Mental Status: Normal Affect, Appropriate, Alert and oriented to time, place, person, mood and affect - Physical Exam Vitals/I&O's: Vital Signs Temp Pulse Resp BP Pulse Ox 98.6 F 98 20 H 126/64 H 97 09/15/19 09:00 09/15/19 09:00 09/15/19 09:00 09/15/19 09:00 09/15/19 09:00 Oxygen Delivery Method Room Air Weight: 100.924 kg Body Mass Index (BMI) 31.0 Finger Stick Blood Glucose 239 Intake and Output for Last 24 Hours 09/13/19 09/14/19 09/15/19 23:59 23:59 23:59 Intake Total 2325 / 3325 6945 / 6945 1351.67 / 1351.67 Output Total 1600 / 2850 6850 / 6850 4850 / 4850 Balance 725 / 475 95 / 95 -3498.33 / -3498.33 Microbiology Past 72 Hours 09/12/19 12:45 Bone - Toe Gram Stain - Final 09/12/19 12:45 Bone - Toe Wound Culture - Final Streptococcus agalactiae (B) 09/12/19 12:45 Bone - Toe Anaerobic Culture - Preliminary No anaerobic bacteria isolated. 09/12/19 12:39 Bone - Toe Gram Stain - Final 09/12/19 12:39 Bone - Toe Wound Culture - Final Staphylococcus aureus Streptococcus agalactiae (B) 09/12/19 12:39 Bone - Toe Anaerobic Culture - Preliminary No anaerobic bacteria isolated. 09/11/19 14:50 Wound - Right Foot Gram Stain - Final 09/11/19 14:50 Wound - Right Foot Wound Culture - Final Staphylococcus aureus Morganella morganii sp morgani Laboratory Results 09/14/19 16:25: POC Glucose 307 H 09/14/19 21:44: POC Glucose 354 H 09/15/19 03:31: PT 22.4 H, INR 2.0 09/15/19 03:31: B-Natriuretic Peptide 411.5 H 09/15/19 06:23: POC Glucose 215 H Current Medications Acetaminophen (Tylenol) 650 mg PO Q6H PRN PRN PRN Reason: Pain Score 1-10/Temp > 100.7 F Last Admin: 09/15/19 02:53 Dose: 650 mg Documented by: Al Hydroxide/Mg Hydroxide (Mylanta Ii) 30 ml PO Q6H PRN PRN PRN Reason: Gastric Burning Albuterol/Ipratropium (Duoneb) 3 ml INHALATION Q6HWA.RT [facility] Last Admin: 09/15/19 07:01 Dose: 3 ml Documented by: Albuterol/Ipratropium (Duoneb) 3 ml INHALATION Q4H PRN PRN PRN Reason: SOB &/OR WHEEZING Last Admin: 09/15/19 03:47 Dose: 3 ml Documented by: Atorvastatin Calcium (Lipitor) 40 mg PO QHS [facility] Last Admin: 09/14/19 20:38 Dose: 40 mg Documented by: Diltiazem HCl (Cardizem Cd) 180 mg PO DAILY [facility] Last Admin: 09/15/19 08:55 Dose: 180 mg Documented by: Gabapentin (Neurontin) 600 mg PO TIDCM [facility] Last Admin: 09/15/19 11:52 Dose: 600 mg Documented by: Glucagon () 1 mg IM .X1 PRN PRN Reason: Hypoglycemia Guaifenesin (Robitussin) 20 ml PO Q4H PRN PRN PRN Reason: COUGH Heparin Sodium (Beef Lung) () 50 units IV UD PRN PRN Reason: PICC Line Heparin Flush Hydralazine HCl (Apresoline Iv) 10 mg IV Q4H PRN PRN PRN Reason: SBP > 160 Last Admin: 09/15/19 02:49 Dose: 10 mg Documented by: Piperacillin Sod/Tazobactam (Sod 3.375 gm/ Sodium Chloride) 50 mls @ 12.5 mls/hr IV Q8 [facility] Last Infusion: 09/15/19 09:58 Dose: Infused Documented by: Dextrose (Dextrose 10%-Water) 250 mls @ 999 mls/hr IV .Q16M PRN; Protocol PRN Reason: HYPOGLYCEMIA Insulin Glargine (Lantus ([facility])) 50 units SC DAILY [facility] Last Admin: 09/15/19 08:56 Dose: 50 u Documented by: Insulin Human Lispro (Humalog Kwikpen ([facility])) 0 unit SC ACHS [facility]; Protocol Last Admin: 09/15/19 11:53 Dose: 5 units Documented by: Lisinopril (Zestril) 20 mg PO DAILY [facility] Last Admin: 09/15/19 08:56 Dose: 20 mg Documented by: Magnesium Hydroxide (Milk Of Magnesia) 30 ml PO DAILY PRN PRN PRN Reason: Constipation Melatonin (Melatonin) 3 mg PO QHS PRN PRN PRN Reason: INSOMNIA Morphine Sulfate () 2 mg IV Q3H PRN PRN PRN Reason: Pain Score 6-10/10 Multivitamins (Multivitamin) 1 tablet PO DAILY@0800 [facility] Last Admin: 09/15/19 08:55 Dose: 1 tablet Documented by: Nitroglycerin (Nitrostat) 0.4 mg SUBLINGUAL Q5M PRN PRN Reason: CARDIAC/CHEST PAIN Nutritional Formula ([facility] - [place] [facility]) [facility] Last Admin: 09/15/19 08:55 Dose: 1 packet Documented by: Nutritional Formula (Lactose Free) (Glucerna Shake) 120 ml PO 4X/DAY [facility] Last Admin: 09/15/19 09:05 Dose: 120 ml Documented by: Ondansetron HCl (Zofran) 4 mg IV Q8H PRN PRN PRN Reason: NAUSEA/VOMITING Oxycodone HCl (Oxyir) 5 mg PO Q4H PRN PRN PRN Reason: Pain Score 4-5/10 Last Admin: 09/11/19 21:09 Dose: 5 mg Documented by: Pantoprazole Sodium (Protonix) 40 mg PO DAILY [facility] Last Admin: 09/15/19 08:56 Dose: 40 mg Documented by: Potassium Chloride (K-Dur) 20 meq PO BID [facility] Last Admin: 09/15/19 08:56 Dose: 20 meq Documented by: Prochlorperazine Edisylate (Compazine Iv) 5 mg IV Q4H PRN PRN PRN Reason: Breakthrough nausea/vomiting Psyllium Hydrophilic Mucilloid (Metamucil) 1 packet PO DAILY PRN PRN PRN Reason: Constipation Senna/Docusate Sodium (Senokot-S, Donna-Colace) 2 tablet PO BID PRN PRN PRN Reason: Constipation Sodium Chloride () 10 - 40 ml IV UD PRN PRN Reason: SALINE FLUSH Last Admin: 09/15/19 05:50 Dose: 20 ml Documented by: Sodium Chloride () 10 - 40 ml IV UD PRN PRN Reason: Open End PICC Flush Sodium Chloride (0.9% Nacl (Sterile) Posiflush) 10 - 40 ml IV UD PRN PRN Reason: Port access or dressing change Last Admin: 09/14/19 09:59 Dose: 10 ml Documented by: Throat Lozenges (Cepacol Sore Throat Lozenge) 1 lozenge MUCOUS MEM Q2H PRN PRN PRN Reason: SORE THROAT Warfarin Sodium (Coumadin ([facility])) 5 mg PO DAILY@1700 [facility] Last Admin: 09/14/19 16:31 Dose: 5 mg Documented by: Zolpidem Tartrate (Ambien (Generic)) 10 mg PO QHS [facility] Last Admin: 09/14/19 20:42 Dose: 10 mg Documented by: Medical Necessity - Tobacco Use Smoking Status: Former smoker - Patient smokes 1 to 1.5 pack/day cigarette tobacco usage since his youth, quit recently during prior admission. Tobacco Use: Non-smoker Assessment/Plan All Active Problems (Last Updated 09/10/19 @ 10:05 by Allie Hobbs) Diabetic foot infection (Acute) Osteomyelitis (Acute) Right foot infection (Acute) Osteomyelitis (Acute) Screen for colon cancer (Acute) Diabetic foot infection (Acute) Gangrene of toe (Acute) Diabetic ulcer of right foot (Acute) Osteomyelitis (Acute) PVD (peripheral vascular disease) (Acute) Type 2 diabetes mellitus with diabetic polyneuropathy (Acute) Ulcer of right foot with fat layer exposed (Acute) Type 2 diabetes mellitus with diabetic polyneuropathy (Acute) PVD (peripheral vascular disease) (Acute) #1 osteomyelitis of the right great toe related to neuropathy of diabetes-methicillin sensitive staph aureus and Morganella-again patient is status post removal of right first ray, continue present antibiotic coverage, infectious diseases is seeing patient, patient will need placement short-term in a snf facility, approval for this will more than likely come next week. #2 cellulitis of the right great toe related to neuropathy of diabetes-positive for methicillin sensitive staph aureus and Morganella-again continue present antibiotic coverage #3 type 2 eljfoljs-[id number]-[id number] monitor blood sugars #4 neuropathy of diabetes #5 chronic obstructive pulmonary disease #6 essential hypertension #7 peripheral vascular disease-complicates care and recovery #8 hyperlipidemia #9 chronic obstructive pulmonary disease-patient has DuoNeb aerosols ordered Code Visit Inpatient E&M: 52592 Subs Hosp L2
[2019-09-15 12:20] LABS: Bedside Glucose 327 mg/dL (70-110)
--- NOTE | 2019-09-15 13:30 | NURSING ---
alerted that pt had blood coming from his PICC line, entered room to see that primary line tubing had become slightly loosened and blood had leaked onto sheets. PICC line intact, dressing intact and flushed easily with good blood return. tubing changed, linens changed and pt assisted to recliner.
--- NOTE | 2019-09-15 15:47 | NURSING ---
reviewed and agree with documentation by NADEEM Mascorro
[2019-09-15 17:16] LABS: Bedside Glucose 294 mg/dL (70-110)
[2019-09-15] MEDS: Atorvastatin Calcium 40 MG Tablet PO (20:50)
[2019-09-15] MEDS: Zolpidem Tartrate 5 MG Tablet 10 MG PO (20:50)
[2019-09-15 21:56] LABS: Bedside Glucose 349 mg/dL (70-110)
[2019-09-16] VITALS (13 sets, daily range): BP systolic 121–142; BP diastolic 57–74; PULSE 65–99; RESP 18–24; TEMP 36.7–37.2; O2SAT 96–97
[2019-09-16] MEDS: Insulin Lispro 100 UNIT/ML INSULN.PEN SC ×4 (06:37→20:51)
[2019-09-16 07:00] LABS: Bedside Glucose 274 mg/dL (70-110)
[2019-09-16] MEDS: Ipratropium/Albuterol Sulfate 3 ML AMPUL.NEB INHALATION ×3 (07:00→19:10)
[2019-09-16] MEDS: Gabapentin 600 MG Tablet PO ×3 (08:26→16:27)
[2019-09-16] MEDS: Multivitamins,Therapeutic Tablet 1 TABLET PO (08:26)
[2019-09-16] MEDS: Pantoprazole Sodium 40 MG Tablet PO (10:08)
[2019-09-16] MEDS: Lisinopril 20 MG Tablet PO (10:09)
[2019-09-16] MEDS: dilTIAZem CD 180 MG Capsule PO (10:09)
[2019-09-16] MEDS: Glucerna Shake 120 ML LIQUID PO ×4 (10:09→20:47)
[2019-09-16 11:30] LABS: Bedside Glucose 365 mg/dL (70-110)
--- NOTE | 2019-09-16 13:59 | PN_ITS ---
Patient Problems: Active and Suspected Problems (Last Updated 09/10/19 @ 10:05 by Allie Hobbs) Diabetic foot infection (Acute) Osteomyelitis (Acute) Right foot infection (Acute) Osteomyelitis (Acute) Abscess of right foot (Suspected) Subjective: Patient was seen and examined today, he has no complaints of any foot pain, shortness of breath, or wheezing today. - Physical Exam Vitals/I&O's: Vital Signs Temp Pulse Resp BP Pulse Ox 99.0 F 85 20 H 142/68 H 97 09/16/19 09:57 09/16/19 13:08 09/16/19 13:08 09/16/19 09:57 09/16/19 09:57 Oxygen Delivery Method Room Air Weight: 100.924 kg Body Mass Index (BMI) 31.0 Finger Stick Blood Glucose 239 Intake and Output for Last 24 Hours 09/14/19 09/15/19 09/16/19 23:59 23:59 23:59 Intake Total 6945 / 6945 2255.92 / 2455.92 600 / 600 Output Total 6850 / 6850 5670 / 6820 2475 / 2475 Balance 95 / 95 -3414.08 / -4364.08 -1875 / -1875 General: Alert, Oriented x3, Cooperative, No apparent distress, Well developed HEENT: Atraumatic, PERRLA, EOMI, Normocephalic Oral: Moist Mucosa Neck: Supple, No JVD, Trachea Midline, Thyroid Normal Size and Texture Lungs: Clear to auscultation, Normal air movement, No rhonchi, No wheeze, No rales Cardiovascular: Regular rate, Regular Rhythm, Normal S1, Normal S2, No murmurs Abdomen: Bowel Sounds Present, Soft, Non Tender, Non-Distended Extremities: No clubbing, No cyanosis, No edema, Capillary Refill Less than 3 Seconds Skin: No rashes Neurological: Cranial nerves II-XII grossly intact, Neuro grossly intact, Sensory exam intact to light touch and pain Psych/Mental Status: Normal Affect, Appropriate, Alert and oriented to time, place, person, mood and affect Microbiology Past 72 Hours 09/12/19 12:39 Bone - Toe Gram Stain - Final 09/12/19 12:39 Bone - Toe Wound Culture - Final Staphylococcus aureus Streptococcus agalactiae (B) 09/12/19 12:39 Bone - Toe Anaerobic Culture - Final No anaerobic bacteria isolated. 09/12/19 12:45 Bone - Toe Gram Stain - Final 09/12/19 12:45 Bone - Toe Wound Culture - Final Streptococcus agalactiae (B) 09/12/19 12:45 Bone - Toe Anaerobic Culture - Final No anaerobic bacteria isolated. 09/11/19 14:50 Wound - Right Foot Gram Stain - Final 09/11/19 14:50 Wound - Right Foot Wound Culture - Final Staphylococcus aureus Morganella morganii sp morgani Laboratory Results 09/15/19 16:58: POC Glucose 294 H 09/15/19 21:44: POC Glucose 349 H 09/16/19 06:34: POC Glucose 274 H 09/16/19 11:09: POC Glucose 365 H Current Medications Acetaminophen (Tylenol) 650 mg PO Q6H PRN PRN PRN Reason: Pain Score 1-10/Temp > 100.7 F Last Admin: 09/15/19 02:53 Dose: 650 mg Documented by: Al Hydroxide/Mg Hydroxide (Mylanta Ii) 30 ml PO Q6H PRN PRN PRN Reason: Gastric Burning Albuterol/Ipratropium (Duoneb) 3 ml INHALATION Q6HWA.RT [facility] Last Admin: 09/16/19 13:08 Dose: 3 ml Documented by: Albuterol/Ipratropium (Duoneb) 3 ml INHALATION Q4H PRN PRN PRN Reason: SOB &/OR WHEEZING Last Admin: 09/15/19 03:47 Dose: 3 ml Documented by: Atorvastatin Calcium (Lipitor) 40 mg PO QHS [facility] Last Admin: 09/15/19 20:50 Dose: 40 mg Documented by: Diltiazem HCl (Cardizem Cd) 180 mg PO DAILY [facility] Last Admin: 09/16/19 10:09 Dose: 180 mg Documented by: Gabapentin (Neurontin) 600 mg PO TIDCM [facility] Last Admin: 09/16/19 11:54 Dose: 600 mg Documented by: Glucagon () 1 mg IM .X1 PRN PRN Reason: Hypoglycemia Guaifenesin (Robitussin) 20 ml PO Q4H PRN PRN PRN Reason: COUGH Heparin Sodium (Beef Lung) () 50 units IV UD PRN PRN Reason: PICC Line Heparin Flush Hydralazine HCl (Apresoline Iv) 10 mg IV Q4H PRN PRN PRN Reason: SBP > 160 Last Admin: 09/15/19 02:49 Dose: 10 mg Documented by: Piperacillin Sod/Tazobactam (Sod 3.375 gm/ Sodium Chloride) 50 mls @ 12.5 mls/hr IV Q8 [facility] Last Infusion: 09/16/19 10:37 Dose: Infused Documented by: Dextrose (Dextrose 10%-Water) 250 mls @ 999 mls/hr IV .Q16M PRN; Protocol PRN Reason: HYPOGLYCEMIA Sodium Chloride () 250 mls @ 15 mls/hr IV .[id number] PRN PRN Reason: Saline Flush Insulin Glargine (Lantus ([facility])) 50 units SC DAILY [facility] Last Admin: 09/16/19 10:09 Dose: 50 u Documented by: Insulin Human Lispro (Humalog Kwikpen ([facility])) 0 unit SC ACHS [facility]; Protocol Last Admin: 09/16/19 11:54 Dose: 6 units Documented by: Lisinopril (Zestril) 20 mg PO DAILY [facility] Last Admin: 09/16/19 10:09 Dose: 20 mg Documented by: Magnesium Hydroxide (Milk Of Magnesia) 30 ml PO DAILY PRN PRN PRN Reason: Constipation Melatonin (Melatonin) 3 mg PO QHS PRN PRN PRN Reason: INSOMNIA Morphine Sulfate () 2 mg IV Q3H PRN PRN PRN Reason: Pain Score 6-10/10 Multivitamins (Multivitamin) 1 tablet PO DAILY@0800 [facility] Last Admin: 09/16/19 08:26 Dose: 1 tablet Documented by: Nitroglycerin (Nitrostat) 0.4 mg SUBLINGUAL Q5M PRN PRN Reason: CARDIAC/CHEST PAIN Nutritional Formula (Renny - [place] Flavor) 1 packet PO BIDCM [facility] Last Admin: 09/16/19 08:26 Dose: 1 packet Documented by: Nutritional Formula (Lactose Free) (Glucerna Shake) 120 ml PO 4X/DAY [facility] Last Admin: 09/16/19 10:09 Dose: 120 ml Documented by: Ondansetron HCl (Zofran) 4 mg IV Q8H PRN PRN PRN Reason: NAUSEA/VOMITING Oxycodone HCl (Oxyir) 5 mg PO Q4H PRN PRN PRN Reason: Pain Score 4-5/10 Last Admin: 09/11/19 21:09 Dose: 5 mg Documented by: Pantoprazole Sodium (Protonix) 40 mg PO DAILY [facility] Last Admin: 09/16/19 10:08 Dose: 40 mg Documented by: Potassium Chloride (K-Dur) 20 meq PO BID [facility] Last Admin: 09/16/19 10:08 Dose: 20 meq Documented by: Prochlorperazine Edisylate (Compazine Iv) 5 mg IV Q4H PRN PRN PRN Reason: Breakthrough nausea/vomiting Psyllium Hydrophilic Mucilloid (Metamucil) 1 packet PO DAILY PRN PRN PRN Reason: Constipation Senna/Docusate Sodium (Senokot-S, Donna-Colace) 2 tablet PO BID PRN PRN PRN Reason: Constipation Sodium Chloride () 10 - 40 ml IV UD PRN PRN Reason: SALINE FLUSH Last Admin: 09/15/19 13:35 Dose: 20 ml Documented by: Sodium Chloride () 10 - 40 ml IV UD PRN PRN Reason: Open End PICC Flush Sodium Chloride (0.9% Nacl (Sterile) Posiflush) 10 - 40 ml IV UD PRN PRN Reason: Port access or dressing change Last Admin: 09/14/19 09:59 Dose: 10 ml Documented by: Throat Lozenges (Cepacol Sore Throat Lozenge) 1 lozenge MUCOUS MEM Q2H PRN PRN PRN Reason: SORE THROAT Warfarin Sodium (Coumadin (Pbkc)) 5 mg PO DAILY@1700 [facility] Last Admin: 09/15/19 17:00 Dose: 5 mg Documented by: Zolpidem Tartrate (Ambien (Generic)) 10 mg PO QHS [facility] Last Admin: 09/15/19 20:50 Dose: 10 mg Documented by: Medical Necessity - Tobacco Use Smoking Status: Former smoker - Patient smokes 1 to 1.5 pack/day cigarette tobacco usage since his youth, quit recently during prior admission. Tobacco Use: Non-smoker Assessment/Plan All Active Problems (Last Updated 09/10/19 @ 10:05 by Allie Hobbs) Diabetic foot infection (Acute) Osteomyelitis (Acute) Right foot infection (Acute) Osteomyelitis (Acute) Screen for colon cancer (Acute) Diabetic foot infection (Acute) Gangrene of toe (Acute) Diabetic ulcer of right foot (Acute) Osteomyelitis (Acute) PVD (peripheral vascular disease) (Acute) Type 2 diabetes mellitus with diabetic polyneuropathy (Acute) Ulcer of right foot with fat layer exposed (Acute) Type 2 diabetes mellitus with diabetic polyneuropathy (Acute) PVD (peripheral vascular disease) (Acute) #1 osteomyelitis of the right great toe related to neuropathy of diabetes- methicillin sensitive staph aureus and Morganella-patient will be started on Invanz tomorrow, we will need approval for outpatient IV antibiotic usage #2 cellulitis of the right great toe related to neuropathy of diabetes-positive for methicillin sensitive staph aureus and Morganella-again continue present antibiotic coverage, change antibiotics tomorrow #3 type 2 vtqobnya-rlzwvisbbezd-qtbopihl monitor blood sugars will adjust p atient's diabetic medications #4 neuropathy of diabetes #5 chronic obstructive pulmonary disease #6 essential hypertension #7 peripheral vascular disease-complicates care and recovery #8 hyperlipidemia #9 chronic obstructive pulmonary disease-patient has DuoNeb aerosols ordered Code Visit Inpatient E&M: 06242 Subs Hosp L2
[2019-09-16 17:00] LABS: Bedside Glucose 359 mg/dL (70-110)
[2019-09-16] MEDS: Atorvastatin Calcium 40 MG Tablet PO (20:48)
[2019-09-16] MEDS: Menthol/Lanolin/Calamine/Znox 113 GM Tube 1 APPLIC TOPICAL (20:48)
[2019-09-16] MEDS: Zolpidem Tartrate 5 MG Tablet 10 MG PO (20:49)
[2019-09-16 21:00] LABS: Bedside Glucose 344 mg/dL (70-110)
[2019-09-17] VITALS (7 sets, daily range): BP systolic 129–139; BP diastolic 71–78; PULSE 83–102; RESP 18; TEMP 36.4–36.8; O2SAT 95–96
[2019-09-17] MEDS: Insulin Lispro 100 UNIT/ML INSULN.PEN SC ×2 (06:44→11:10)
[2019-09-17 06:51] LABS: Bedside Glucose 356 mg/dL (70-110)
[2019-09-17] MEDS: Ipratropium/Albuterol Sulfate 3 ML AMPUL.NEB INHALATION ×2 (07:02→13:16)
[2019-09-17] MEDS: Pantoprazole Sodium 40 MG Tablet PO (08:11)
[2019-09-17] MEDS: Multivitamins,Therapeutic Tablet 1 TABLET PO (08:11)
[2019-09-17] MEDS: Lisinopril 20 MG Tablet PO (08:11)
[2019-09-17] MEDS: dilTIAZem CD 180 MG Capsule PO (08:11)
[2019-09-17] MEDS: Gabapentin 600 MG Tablet PO ×2 (08:11→11:06)
[2019-09-17] MEDS: Menthol/Lanolin/Calamine/Znox 113 GM Tube 1 APPLIC TOPICAL (08:11)
[2019-09-17] MEDS: Glucerna Shake 120 ML LIQUID PO ×2 (08:15→14:22)
[2019-09-17 11:16] LABS: Bedside Glucose 385 mg/dL (70-110)
--- NOTE | 2019-09-17 11:46 | PCM.DC ---
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) Osteomyelitis (Acute) Type 2 diabetes mellitus with diabetic polyneuropathy (Chronic) You will use the following diet at home:: Calorie/Carbohydrate Controlled (specify 1200, 1400, etc) - 1800 yinka Your food should be the consistency of: Regular Your liquids should be the consistency of: Regular/Thin Discharge Activity: Use Walker, Use Crutches, - - use knee roller Weight Bearing Status: No weight bearing Keep extremity elevated above heart level: Right Leg Call your doctor if your incision/area has: Continuous Slow Oozing, Sudden Increased Bleeding, Increased Pain/ Swelling, Increased Redness, Foul Smelling Discharge, Swelling at the incision site Call your doctor if you observe: Fever of 101 or Higher, Calf discomfort, Uncontrolled pain Cleanse incision/area with: Keep Dressing Clean & Dry Allergies/Adverse Reactions: Allergies No Known Allergies Allergy (Verified 09/11/19 11:58) Medications to take at Discharge Diltiazem 180 mg PO DAILY 09/26/13 Gabapentin [Neurontin] 600 mg PO TID 09/26/13 Zolpidem Tartrate [Ambien] 10 mg PO QHS 11/06/15 Omeprazole [Prilosec] 40 mg PO DAILY 03/13/18 Multivitamin [Daily Multiple Vitamin] 1 ea PO DAILY 07/17/19 Aspirin [Aspirin, Baby] 81 mg PO DAILY@0800 09/11/19 Clopidogrel Bisulfate [Plavix] 75 mg PO DAILY 09/11/19 Meloxicam [Mobic] 15 mg PO DAILY 09/11/19 Potassium Chloride [Klor-Con] 20 meq PO BID 09/11/19 Ranitidine [Zantac] 300 mg PO DAILY 09/11/19 Atorvastatin Calcium [Lipitor] 40 mg PO DAILY #30 tab 09/17/19 Atorvastatin Calcium [Lipitor] 40 mg PO QHS #30 tab 09/17/19 Insulin Aspart [Novolog Flexpen ([facility])] 10 units SUBCUT TIDCM #1 flexpen 09/17/19 Insulin Degludec/Liraglutide [Xultophy 100 Unit-3.6MG/ml Pen] 65 units SQ DAILY #1 09/17/19 Lisinopril [Zestril] 20 mg PO DAILY #30 tab 09/17/19 Oxycodone [Oxyir] 5 mg PO Q4H PRN PRN 7 Days #30 tab 09/17/19 Warfarin [Coumadin] 5 mg PO DAILY@1700 #30 tab 09/17/19 The following prescriptions were given: Warfarin [Coumadin] 5 mg PO DAILY@1700 #30 tab Transmission Status: Sent to [facility] [place] Atorvastatin Calcium [Lipitor] 40 mg PO DAILY #30 tab Transmission Status: Pending to [facility] [place] Insulin Aspart [Novolog Flexpen ([facility])] 10 units SUBCUT TIDCM #1 flexpen Transmission Status: Pending to [facility] [place] Oxycodone [Oxyir] 5 mg PO Q4H PRN PRN 7 Days #30 tab PRN Reason: Pain Score 4-5/10 Transmission Status: Sent to [facility] [place] Insulin Degludec/Liraglutide [Xultophy 100 Unit-3.6MG/ml Pen] 65 units SQ DAILY #1 Lisinopril [Zestril] 20 mg PO DAILY #30 tab Transmission Status: Sent to [facility] [place] Primary Care Physician: Saurabh Hernandez Chi, MD [Primary Care Provider] - Please follow up with your Primary Care Physician in: in 3 weeks Test Results: Test results from this visit will be discussed in further detail at your follow-up appointment, if applicable. Please Follow Up With: Jordyn Meyers DPM When: [facility] 1 week. Call [phone] if questions and to schedule Please Follow Up With: John Johansen MD When: as directed Proposed Discharge Date: 09/15/19
--- NOTE | 2019-09-17 11:53 | PN_ITS ---
Patient Problems: Active and Suspected Problems (Last Updated 09/10/19 @ 10:05 by Allie Hobbs) Diabetic foot infection (Acute) Osteomyelitis (Acute) Right foot infection (Acute) Osteomyelitis (Acute) Abscess of right foot (Suspected) Subjective: Patient seen today for follow up on right foot. He is going to be discharged home today. No new complaints. - Physical Exam Vitals/I&O's: Vital Signs Temp Pulse Resp BP Pulse Ox 98.1 F 86 18 136/78 H 96 09/17/19 08:08 09/17/19 08:08 09/17/19 08:08 09/17/19 08:08 09/17/19 08:08 Oxygen Delivery Method Room Air Weight: 100.924 kg Body Mass Index (BMI) 31.0 Finger Stick Blood Glucose 239 Intake and Output for Last 24 Hours 09/15/19 09/16/19 09/17/19 23:59 23:59 23:59 Intake Total 2255.92 / 2455.92 1850 / 1850 644.25 / 644.25 Output Total 5670 / 6820 4075 / 4875 3875 / 3875 Balance -3414.08 / -4364.08 -2225 / -3025 -3230.75 / -3230.75 General: Alert, Oriented x3, Cooperative, No apparent distress Extremities: Capillary Refill Less than 3 Seconds, No Calf Tenderness, - - s/p partial 1st ray amp R foot, healing well, sutures intact, no dehiscence, no cellulitis, no drainage, no evidence of complication. No acute ischemia to right foot. Psych/Mental Status: Normal Affect, Alert and oriented to time, place, person, mood and affect Microbiology Past 72 Hours 09/12/19 12:39 Bone - Toe Gram Stain - Final 09/12/19 12:39 Bone - Toe Wound Culture - Final Staphylococcus aureus Streptococcus agalactiae (B) 09/12/19 12:39 Bone - Toe Anaerobic Culture - Final No anaerobic bacteria isolated. 09/12/19 12:45 Bone - Toe Gram Stain - Final 09/12/19 12:45 Bone - Toe Wound Culture - Final Streptococcus agalactiae (B) 09/12/19 12:45 Bone - Toe Anaerobic Culture - Final No anaerobic bacteria isolated. Laboratory Results 09/16/19 16:23: POC Glucose 359 H 09/16/19 20:50: POC Glucose 344 H 09/17/19 06:43: POC Glucose 356 H 09/17/19 11:10: POC Glucose 385 H Current Medications Acetaminophen (Tylenol) 650 mg PO Q6H PRN PRN PRN Reason: Pain Score 1-10/Temp > 100.7 F Last Admin: 09/15/19 02:53 Dose: 650 mg Documented by: Al Hydroxide/Mg Hydroxide (Mylanta Ii) 30 ml PO Q6H PRN PRN PRN Reason: Gastric Burning Albuterol/Ipratropium (Duoneb) 3 ml INHALATION Q6HWA.RT [facility] Last Admin: 09/17/19 07:02 Dose: 3 ml Documented by: Albuterol/Ipratropium (Duoneb) 3 ml INHALATION Q4H PRN PRN PRN Reason: SOB &/OR WHEEZING Last Admin: 09/15/19 03:47 Dose: 3 ml Documented by: Atorvastatin Calcium (Lipitor) 40 mg PO QHS [facility] Last Admin: 09/16/19 20:48 Dose: 40 mg Documented by: Calamine/Phenol (Calmoseptine Ointment) 1 applic TOPICAL BID [facility]; Protocol Last Admin: 09/17/19 08:11 Dose: 1 applicatio Documented by: Diltiazem HCl (Cardizem Cd) 180 mg PO DAILY [facility] Last Admin: 09/17/19 08:11 Dose: 180 mg Documented by: Gabapentin (Neurontin) 600 mg PO TIDCM [facility] Last Admin: 09/17/19 11:06 Dose: 600 mg Documented by: Glucagon () 1 mg IM .X1 PRN PRN Reason: Hypoglycemia Guaifenesin (Robitussin) 20 ml PO Q4H PRN PRN PRN Reason: COUGH Heparin Sodium (Beef Lung) () 50 units IV UD PRN PRN Reason: PICC Line Heparin Flush Dextrose (Dextrose 10%-Water) 250 mls @ 999 mls/hr IV .Q16M PRN; Protocol PRN Reason: HYPOGLYCEMIA Sodium Chloride () 250 mls @ 15 mls/hr IV .[id number] PRN PRN Reason: Saline Flush Last Infusion: 09/17/19 11:35 Dose: 15 mls/hr Documented by: Ertapenem 1 gm/ Sodium (Chloride) 60 mls @ 100 mls/hr IV Q24 [facility] Last Infusion: 09/17/19 11:35 Dose: Infused Documented by: Insulin Glargine (Lantus (Bk)) 65 units SC DAILY [facility] Last Admin: 09/17/19 08:11 Dose: 65 u Documented by: Insulin Human Lispro (Humalog Kwikpen (Bk)) 0 unit SC ACHS [facility]; Protocol Last Admin: 09/17/19 11:10 Dose: 6 units Documented by: Insulin Human Lispro (Humalog Kwikpen (Bk)) 10 unit SC TIDAC [facility] Lisinopril (Zestril) 20 mg PO DAILY [facility] Last Admin: 09/17/19 08:11 Dose: 20 mg Documented by: Magnesium Hydroxide (Milk Of Magnesia) 30 ml PO DAILY PRN PRN PRN Reason: Constipation Melatonin (Melatonin) 3 mg PO QHS PRN PRN PRN Reason: INSOMNIA Morphine Sulfate () 2 mg IV Q3H PRN PRN PRN Reason: Pain Score 6-10/10 Multivitamins (Multivitamin) 1 tablet PO DAILY@0800 [facility] Last Admin: 09/17/19 08:11 Dose: 1 tablet Documented by: Nitroglycerin (Nitrostat) 0.4 mg SUBLINGUAL Q5M PRN PRN Reason: CARDIAC/CHEST PAIN Nutritional [facility] ([facility] - [place] Fl[facility]) [facility] Last Admin: 09/17/19 08:10 Dose: 1 packet Documented by: Nutritional Formula (Lactose Free) (Glucerna Shake) 120 ml PO 4X/DAY [facility] Last Admin: 09/17/19 08:15 Dose: 120 ml Documented by: Ondansetron HCl (Zofran) 4 mg IV Q8H PRN PRN PRN Reason: NAUSEA/VOMITING Oxycodone HCl (Oxyir) 5 mg PO Q4H PRN PRN PRN Reason: Pain Score 4-5/10 Last Admin: 09/11/19 21:09 Dose: 5 mg Documented by: Pantoprazole Sodium (Protonix) 40 mg PO DAILY [facility] Last Admin: 09/17/19 08:11 Dose: 40 mg Documented by: Potassium Chloride (K-Dur) 20 meq PO BID [facility] Last Admin: 09/17/19 08:11 Dose: 20 meq Documented by: Prochlorperazine Edisylate (Compazine Iv) 5 mg IV Q4H PRN PRN PRN Reason: Breakthrough nausea/vomiting Psyllium Hydrophilic Mucilloid (Metamucil) 1 packet PO DAILY PRN PRN PRN Reason: Constipation Senna/Docusate Sodium (Senokot-S, Donna-Colace) 2 tablet PO BID PRN PRN PRN Reason: Constipation Sodium Chloride () 10 - 40 ml IV UD PRN PRN Reason: SALINE FLUSH Last Admin: 09/15/19 13:35 Dose: 20 ml Documented by: Sodium Chloride () 10 - 40 ml IV UD PRN PRN Reason: Open End PICC Flush Sodium Chloride (0.9% Nacl (Sterile) Posiflush) 10 - 40 ml IV UD PRN PRN Reason: Port access or dressing change Last Admin: 09/14/19 09:59 Dose: 10 ml Documented by: Throat Lozenges (Cepacol Sore Throat Lozenge) 1 lozenge MUCOUS MEM Q2H PRN PRN PRN Reason: SORE THROAT Warfarin Sodium (Coumadin (Pbkc)) 5 mg PO DAILY@1700 [facility] Last Admin: 09/16/19 16:27 Dose: 5 mg Documented by: Zolpidem Tartrate (Ambien (Generic)) 10 mg PO QHS [facility] Last Admin: 09/16/19 20:49 Dose: 10 mg Documented by: Medical Necessity - Tobacco Use Smoking Status: Former smoker - Patient smokes 1 to 1.5 pack/day cigarette tobacco usage since his youth, quit recently during prior admission. Tobacco Use: Non-smoker Assessment/Plan All Active Problems (Last Updated 09/10/19 @ 10:05 by Allie Hobbs) Diabetic foot infection (Acute) Osteomyelitis (Acute) Right foot infection (Acute) Osteomyelitis (Acute) Screen for colon cancer (Acute) Diabetic foot infection (Acute) Gangrene of toe (Acute) Diabetic ulcer of right foot (Acute) Osteomyelitis (Acute) PVD (peripheral vascular disease) (Acute) Type 2 diabetes mellitus with diabetic polyneuropathy (Acute) Ulcer of right foot with fat layer exposed (Acute) Type 2 diabetes mellitus with diabetic polyneuropathy (Acute) PVD (peripheral vascular disease) (Acute) Postoperative day right foot first ray resection for treatment of osteomyelitis and nonhealing ulcer Chronic uncontrolled diabetes (hemoglobin A1c of 13.3% on June 2019) Other comorbidities include the following: chronic pain syndrome s/p back surgery, history of bilateral lower extremity deep venous thrombosis, chronic COPD, hypertension, hyperlipidemia, arthritis, GERD, former tobacco user, peripheral arterial disease now status post intervention I reviewed and discussed his case. Foot healing, applied clean, dry sterile gauze, kerlix and jesu dressing - keep clean, dry and intact. No weightbearing right foot. Antibiotics per ID service. Patient to follow up w/ Dr. Meyers end of this week, sooner if needed.
--- NOTE | 2019-09-17 14:40 | CASEMGMT ---
HERMINIA STANFORD received script for outpatient antibiotic for [facility] outpatient infusion center. HERMINIA STANFORD sent referral to [facility] outpatient infusion center and appt made for 09/18/2019 1000. HERMINIA STANFORD updated the patient. Patient had no further questions or concerns at this time.
--- NOTE | 2019-09-17 14:49 | PCM.PN.ID ---
Patient Problems: Active and Suspected Problems (Last Updated 09/10/19 @ 10:05 by Allie Hobbs) Diabetic foot infection (Acute) Osteomyelitis (Acute) Right foot infection (Acute) Osteomyelitis (Acute) Abscess of right foot (Suspected) Subjective: Feeling ok, no fever, no n/v/d. - Physical Exam Vitals/I&O's: Vital Signs Temp Pulse Resp BP Pulse Ox 98.3 F 95 18 129/71 H 96 09/17/19 14:10 09/17/19 14:10 09/17/19 14:10 09/17/19 14:10 09/17/19 14:10 Oxygen Delivery Method Room Air Weight: 100.924 kg Body Mass Index (BMI) 31.0 Finger Stick Blood Glucose 239 Intake and Output for Last 24 Hours 09/15/19 09/16/19 09/17/19 23:59 23:59 23:59 Intake Total 2255.92 / 2455.92 1850 / 1850 644.25 / 644.25 Output Total 5670 / 6820 4075 / 4875 3875 / 3875 Balance -3414.08 / -4364.08 -2225 / -3025 -3230.75 / -3230.75 General: Alert, Cooperative, No apparent distress Lungs: Clear to auscultation, Normal air movement Cardiovascular: Regular rate, Regular Rhythm Abdomen: Soft, Non Tender, Non-Distended Skin: Ulcer/ Wound - foot wrapped Microbiology Past 72 Hours 09/12/19 12:39 Bone - Toe Gram Stain - Final 09/12/19 12:39 Bone - Toe Wound Culture - Final Staphylococcus aureus Streptococcus agalactiae (B) 09/12/19 12:39 Bone - Toe Anaerobic Culture - Final No anaerobic bacteria isolated. 09/12/19 12:45 Bone - Toe Gram Stain - Final 09/12/19 12:45 Bone - Toe Wound Culture - Final Streptococcus agalactiae (B) 09/12/19 12:45 Bone - Toe Anaerobic Culture - Final No anaerobic bacteria isolated. Laboratory Results 09/16/19 16:23: POC Glucose 359 H 09/16/19 20:50: POC Glucose 344 H 09/17/19 06:43: POC Glucose 356 H 09/17/19 11:10: POC Glucose 385 H Current Medications Acetaminophen (Tylenol) 650 mg PO Q6H PRN PRN PRN Reason: Pain Score 1-10/Temp > 100.7 F Last Admin: 09/15/19 02:53 Dose: 650 mg Documented by: Al Hydroxide/Mg Hydroxide (Mylanta Ii) 30 ml PO Q6H PRN PRN PRN Reason: Gastric Burning Albuterol/Ipratropium (Duoneb) 3 ml INHALATION Q6HWA.RT [facility] Last Admin: 09/17/19 13:16 Dose: 3 ml Documented by: Albuterol/Ipratropium (Duoneb) 3 ml INHALATION Q4H PRN PRN PRN Reason: SOB &/OR WHEEZING Last Admin: 09/15/19 03:47 Dose: 3 ml Documented by: Atorvastatin Calcium (Lipitor) 40 mg PO QHS [facility] Last Admin: 09/16/19 20:48 Dose: 40 mg Documented by: Calamine/Phenol (Calmoseptine Ointment) 1 applic TOPICAL BID [facility]; Protocol Last Admin: 09/17/19 08:11 Dose: 1 applicatio Documented by: Diltiazem HCl (Cardizem Cd) 180 mg PO DAILY [facility] Last Admin: 09/17/19 08:11 Dose: 180 mg Documented by: Gabapentin (Neurontin) 600 mg PO TIDCM [facility] Last Admin: 09/17/19 11:06 Dose: 600 mg Documented by: Glucagon () 1 mg IM .X1 PRN PRN Reason: Hypoglycemia Guaifenesin (Robitussin) 20 ml PO Q4H PRN PRN PRN Reason: COUGH Heparin Sodium (Beef Lung) () 50 units IV UD PRN PRN Reason: PICC Line Heparin Flush Dextrose (Dextrose 10%-Water) 250 mls @ 999 mls/hr IV .Q16M PRN; Protocol PRN Reason: HYPOGLYCEMIA Sodium Chloride () 250 mls @ 15 mls/hr IV .[id number] PRN PRN Reason: Saline Flush Last Infusion: 09/17/19 11:35 Dose: 15 mls/hr Documented by: Ertapenem 1 gm/ Sodium (Chloride) 60 mls @ 100 mls/hr IV Q24 [facility] Last Infusion: 09/17/19 11:35 Dose: Infused Documented by: Insulin Glargine (Lantus (Bkc)) 65 units SC DAILY [facility] Last Admin: 09/17/19 08:11 Dose: 65 u Documented by: Insulin Human Lispro (Humalog Kwikpen (Bkc)) 0 unit SC ACHS [facility]; Protocol Last Admin: 09/17/19 11:10 Dose: 6 units Documented by: Insulin Human Lispro (Humalog Kwikpen (Bkc)) 10 unit SC TIDAC [facility] Lisinopril (Zestril) 20 mg PO DAILY [facility] Last Admin: 09/17/19 08:11 Dose: 20 mg Documented by: Magnesium Hydroxide (Milk Of Magnesia) 30 ml PO DAILY PRN PRN PRN Reason: Constipation Melatonin (Melatonin) 3 mg PO QHS PRN PRN PRN Reason: INSOMNIA Morphine Sulfate () 2 mg IV Q3H PRN PRN PRN Reason: Pain Score 6-10/10 Multivitamins (Multivitamin) 1 tablet PO DAILY@0800 [facility] Last Admin: 09/17/19 08:11 Dose: 1 tablet Documented by: Nitroglycerin (Nitrostat) 0.4 mg SUBLINGUAL Q5M PRN PRN Reason: CARDIAC/CHEST PAIN [facility]al [facility] (R[facility] - [place] [facility] Last Admin: 09/17/19 08:10 Dose: 1 packet Documented by: Nutritional Formula (Lactose Free) (Glucerna Shake) 120 ml PO 4X/DAY [facility] Last Admin: 09/17/19 14:22 Dose: 120 ml Documented by: Ondansetron HCl (Zofran) 4 mg IV Q8H PRN PRN PRN Reason: NAUSEA/VOMITING Oxycodone HCl (Oxyir) 5 mg PO Q4H PRN PRN PRN Reason: Pain Score 4-5/10 Last Admin: 09/11/19 21:09 Dose: 5 mg Documented by: Pantoprazole Sodium (Protonix) 40 mg PO DAILY [facility] Last Admin: 09/17/19 08:11 Dose: 40 mg Documented by: Potassium Chloride (K-Dur) 20 meq PO BID [facility] Last Admin: 09/17/19 08:11 Dose: 20 meq Documented by: Prochlorperazine Edisylate (Compazine Iv) 5 mg IV Q4H PRN PRN PRN Reason: Breakthrough nausea/vomiting Psyllium Hydrophilic Mucilloid (Metamucil) 1 packet PO DAILY PRN PRN PRN Reason: Constipation Senna/Docusate Sodium (Senokot-S, Donna-Colace) 2 tablet PO BID PRN PRN PRN Reason: Constipation Sodium Chloride () 10 - 40 ml IV UD PRN PRN Reason: SALINE FLUSH Last Admin: 09/15/19 13:35 Dose: 20 ml Documented by: Sodium Chloride () 10 - 40 ml IV UD PRN PRN Reason: Open End PICC Flush Sodium Chloride (0.9% Nacl (Sterile) Posiflush) 10 - 40 ml IV UD PRN PRN Reason: Port access or dressing change Last Admin: 09/14/19 09:59 Dose: 10 ml Documented by: Throat Lozenges (Cepacol Sore Throat Lozenge) 1 lozenge MUCOUS MEM Q2H PRN PRN PRN Reason: SORE THROAT Warfarin Sodium (Coumadin (Pbkc)) 5 mg PO DAILY@1700 [facility] Last Admin: 09/16/19 16:27 Dose: 5 mg Documented by: Zolpidem Tartrate (Ambien (Generic)) 10 mg PO QHS [facility] Last Admin: 09/16/19 20:49 Dose: 10 mg Documented by: Medical Necessity - Tobacco Use Smoking Status: Former smoker - Patient smokes 1 to 1.5 pack/day cigarette tobacco usage since his youth, quit recently during prior admission. Tobacco Use: Non-smoker Route of nutrition/ use of supplements: [] Nutritional Intake: [] IV Site: [] Abreu Catheter: [] - Assessment/Plan Antibiotics: [] Assessment/Plan: [] Active and Suspected Problems (Last Updated 09/10/19 @ 10:05 by Allie Hobbs) Diabetic foot infection (Acute) Osteomyelitis (Acute) Right foot infection (Acute) Osteomyelitis (Acute) Abscess of right foot (Suspected) R foot osteo - now s/p 1st ray resection by Dr. Meyers 09/12/19. Wound cx so far showing morganella, GBS, and mSSA. Cont zosyn. Surg cx (+) and path pending. Ok for d/c with home infusion, picc in place, on 6 weeks of ertapenem, stop date 10/25/19, weekly bmp, cbc, and esr. ID followup with me in 2 weeks. Will follow, d/w caseworker protective services
--- NOTE | 2019-09-18 15:41 | CASEMGMT ---
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 States Dc'd this morning. States feeling the same but not worse. Denies any questions or concerns with [facility], medications or f/u. Thanked him for choosing [facility] for care and ended conversation. Donna Cisneros RNCM
--- NOTE | 2019-09-19 18:47 | PCM.DC.SUM ---
Discharge Date and Diagnosis Date of Admission: 09/11/19 Date of Discharge: 09/17/19 - Primary Discharge Diagnosis #1 osteomyelitis of the right great toe related to neuropathy of diabetes-methicillin sensitive staph aureus and Morganella #2 cellulitis of the right great toe related to neuropathy of diabetes-positive for methicillin sensitive staph aureus and Morganella #3 type 2 diabetes-uncontrolled #4 neuropathy of diabetes #5 chronic obstructive pulmonary disease #6 essential hypertension #7 peripheral vascular disease #8 hyperlipidemia #9 chronic obstructive pulmonary disease - Secondary Discharge Diagnosis Chronic Problems (Last Updated 09/10/19 @ 10:05 by Allie Hobbs) 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) Lumbar spinal stenosis (Chronic) Obstructive sleep apnea (Chronic) Scabies infestation (Chronic) DVT (deep venous thrombosis) (Chronic) Tobacco abuse (Chronic) GERD (gastroesophageal reflux disease) (Chronic) Neuropathy (Chronic) Hypertension (Chronic) COPD (chronic obstructive pulmonary disease) (Chronic) Peripheral vascular disease (Chronic) Hyperlipidemia (Chronic) Erectile dysfunction (Chronic) Diabetes mellitus (Chronic) IDDM (insulin dependent diabetes mellitus) (Chronic) Hospital Course and Treatment Operations: None, - - debridement of right foot and open hallux amputation Summary of Care Provided: The patient is a 68 year old M was seen in the emergency room at [facility] after being sent in by the wound center due to concerns of a red right foot and swelling around the first toe on the right foot. Labs were obtained on the patient and were remarkable for a glucose of 261 and a C-reactive protein of 114. INR was 3.1. Patient was admitted for osteomyelitis of the right great toe, he was started on IV antibiotics and seen in consultation by podiatry, patient underwent first ray resection right foot, he was maintained on IV antibiotics, initial cultures revealed staph aureus (methicillin sensitive) and Morganella. Bone fragment culture after surgery grew out strep agalactiae, infectious diseases was consulted and initially advised the patient to have IV antibiotic therapy in a assisted setting. Patient agreed to go to a assisted facility but his insurance would not pay very much for the staying and so the patient stated he could not afford this. Arrangements were made for the patient to have outpatient Invanz instead. PT and OT saw the patient during his hospitalization. On 09/17/2019, patient was seen and examined: On examination he appeared in good health and spirits. Vital signs as documented. Skin warm and dry and without overt rashes. Neck without JVD. Lungs clear. Heart exam notable for regular rhythm, normal sounds and absence of murmurs, rubs or gallops. Abdomen unremarkable and without evidence of organomegaly, masses, or abdominal aortic enlargement. Extremities-right foot is wrapped with surgical dressing and was not examined. Neuro: Cranial nerves II through XII are grossly intact, no focal motor deficits were noted, sensation to light touch and pinprick intact. Psych: Patient is alert and oriented x3, he does not appear anxious or depressed On 09/17/2019, patient was discharged home in stable condition - Physical Exam Vitals/I&O's: Vital Signs Temp Pulse Resp BP Pulse Ox 98.3 F 95 18 129/71 H 96 09/17/19 14:10 09/17/19 14:10 09/17/19 14:10 09/17/19 14:10 09/17/19 14:10 Oxygen Delivery Method Room Air Weight: 100.924 kg Body Mass Index (BMI) 31.0 Finger Stick Blood Glucose 239 Intake and Output for Last 24 Hours 09/17/19 09/18/19 09/19/19 23:59 23:59 23:59 Intake Total 707.75 / 707.75 Output Total 3875 / 3875 Balance -3167.25 / -3167.25 Discharge Activity: Use Walker, Use Crutches, - - use knee roller Weight Bearing Status: No weight bearing Keep extremity elevated above heart level: Right Leg Call your doctor if your incision/area has: Continuous Slow Oozing, Sudden Increased Bleeding, Increased Pain/ Swelling, Increased Redness, Foul Smelling Discharge, Swelling at the incision site Call your doctor if you observe: Fever of 101 or Higher, Calf discomfort, Uncontrolled pain Cleanse incision/area with: Keep Dressing Clean & Dry Home Medications: Medications to take at Discharge Diltiazem 180 mg PO DAILY 09/26/13 Gabapentin [Neurontin] 600 mg PO TID 09/26/13 Zolpidem Tartrate [Ambien] 10 mg PO QHS 11/06/15 Omeprazole [Prilosec] 40 mg PO DAILY 03/13/18 Multivitamin [Daily Multiple Vitamin] 1 ea PO DAILY 07/17/19 Aspirin [Aspirin, Baby] 81 mg PO DAILY@0800 09/11/19 Clopidogrel Bisulfate [Plavix] 75 mg PO DAILY 09/11/19 Meloxicam [Mobic] 15 mg PO DAILY 09/11/19 Potassium Chloride [Klor-Con] 20 meq PO BID 09/11/19 Ranitidine [Zantac] 300 mg PO DAILY 09/11/19 Atorvastatin Calcium [Lipitor] 40 mg PO DAILY #30 tab 09/17/19 Atorvastatin Calcium [Lipitor] 40 mg PO QHS #30 tab 09/17/19 Ertapenem Sod [Invanz] 1 gm IV Q24 38 Days #38 vial 09/17/19 Insulin Aspart [Novolog Flexpen (BKC)] 10 units SUBCUT TIDCM #1 flexpen 09/17/19 Insulin Degludec/Liraglutide [Xultophy 100 Unit-3.6MG/ml Pen] 65 units SQ DAILY #1 09/17/19 Lisinopril [Zestril] 20 mg PO DAILY #30 tab 09/17/19 Oxycodone [Oxyir] 5 mg PO Q4H PRN PRN 7 Days #30 tab 09/17/19 Warfarin [Coumadin] 5 mg PO DAILY@1700 #30 tab 09/17/19 Following Prescrptions Were Given to Patient: Warfarin [Coumadin] 5 mg PO DAILY@1700 #30 tab Transmission Status: Received by [facility] [place] Ertapenem Sod [Invanz] 1 gm IV Q24 38 Days #38 vial Prescription Printed Atorvastatin Calcium [Lipitor] 40 mg PO DAILY #30 tab Transmission Status: Received by [facility] [place] Insulin Aspart [Novolog Flexpen (BKC)] 10 units SUBCUT TIDCM #1 flexpen Transmission Status: Received by [facility] [place] Oxycodone [Oxyir] 5 mg PO Q4H PRN PRN 7 Days #30 tab PRN Reason: Pain Score 4-5/10 Transmission Status: Received by [facility] [place] Insulin Degludec/Liraglutide [Xultophy 100 Unit-3.6MG/ml Pen] 65 units SQ DAILY #1 Lisinopril [Zestril] 20 mg PO DAILY #30 tab Transmission Status: Received by [facility] [place] Primary Care Physician: Saurabh Hernandez Chi, MD [Primary Care Provider] - Please follow up with your Primary Care Physician in: in 3 weeks Please Follow Up With: Saurabh Hernandez MD When: Tuesday Please Follow Up With: John Johansen MD When: as directed Please Follow Up With: Outpatient Infusion Clinic When: Tuesday Please Follow Up With: Jordyn Meyers When: Tuesday Disposition: Home Minutes spent on discharge:: 32 Patient Condition:: Stable Medical Necessity - Tobacco Use Smoking Status: Former smoker - Patient smokes 1 to 1.5 pack/day cigarette tobacco usage since his youth, quit recently during prior admission. Tobacco Use: Non-smoker Meaningful Use Info Meaningful Use Diagnoses (Choose all that apply): None applicable Code Visit Inpatient E&M: 93398 Disch Hosp
== END 2019-09-17 15:48 | disposition home or self-care (01) | DRG 475 ==
LOC: ED 11:59 → MS3 14:25
PROVIDERS: Podiatrist; Student in an Organized Health Care Education/Training Program; Admitting Provider Family Medicine; Emergency Provider Emergency Medicine; PCP Family Medicine Geriatric Medicine; Visit Provider Internal Medicine
PROC: 0Y6M0Z9 Detachment at Right Foot, Partial 1st Ray, Open Approach (ICD-10-PCS; CPT 28805; principal; 2019-09-12 11:45)
DX: T87.89 Other complications of amputation stump (principal); M86.271 Subacute osteomyelitis, right ankle and foot; E11.69 Type 2 diabetes mellitus with other specified complication; L03.031 Cellulitis of right toe; E11.42 Type 2 diabetes mellitus with diabetic polyneuropathy; E11.65 Type 2 diabetes mellitus with hyperglycemia; J44.9 Chronic obstructive pulmonary disease, unspecified; I10 Essential (primary) hypertension; L97.519 Non-pressure chronic ulcer of other part of right foot with unspecified severity; B95.61 Methicillin susceptible Staphylococcus aureus infection as the cause of diseases classified elsewhere; B96.89 Other specified bacterial agents as the cause of diseases classified elsewhere; G47.33 Obstructive sleep apnea (adult) (pediatric); K21.9 Gastro-esophageal reflux disease without esophagitis; E78.5 Hyperlipidemia, unspecified; Z79.4 Long term (current) use of insulin; Z79.01 Long term (current) use of 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s; Z86.718 Personal history of other venous thrombosis and embolism; Z89.411 Acquired absence of right great toe; Z87.891 Personal history of nicotine dependence; Z95.820 Peripheral vascular angioplasty status with implants and grafts; Z98.1 Arthrodesis status
CPT/HCPCS: 36415; 36569; 71045; 73620; 73630; 73720; 76000; 80048; 80202; 82962; 83605; 83880; 85025; 85610; 85652; 85730; 86140; 87015; 87070; 87075; 87077; 87102; 87116; 87186; 87205; 87206; 87640; 88304; 88311; 93005; 94640; 97110; 97116; 97163; 97166; 97530; 97802; 97803; 99212; 99251; 99284; 99406; A9575; J7030; J7040; J7050; J7120; A4216; G0463; J1940; J2405

== ENCOUNTER → 2019-09-18 10:10 | Outpatient (CLI) | payer MEDICARE, SELFPAY ==
[2019-09-12 11:30] VITALS: BMI 31.0
[2019-09-18] MEDS: 0.9% Saline Lock 10 ML Syringe IV (10:25)
[2019-09-18 10:28] VITALS: BP 124/71; PULSE 111; RESP 18; TEMP 37.2; O2SAT 95; BMI 29.9
== END ==
PROVIDERS: PCP Family Medicine Geriatric Medicine; Referring Provider Internal Medicine Infectious Disease; Visit Provider Internal Medicine Infectious Disease
DX: E11.628 Type 2 diabetes mellitus with other skin complications (principal); M86.8X7 Other osteomyelitis, ankle and foot
CPT/HCPCS: 96365; J7050; A4216

== ENCOUNTER → 2019-09-19 17:13 | Outpatient (CLI) | payer MEDICARE, SELFPAY ==
[2019-09-18 10:28] VITALS: BMI 29.9
--- NOTE | 2019-09-19 17:22 | RAD_ITS ---
STUDY: X-RAY CHEST REASON FOR EXAM: Male, 68 years old. COUGH WITH FEVER X A FEW DAYS TECHNIQUE: PA and lateral views of the chest. COMPARISON: July 18, 2019 FINDINGS: PICC on the right extends to the superior vena cava. The lungs are clear and hyper expanded. There is no demonstrated pleural abnormality. Normal size heart. Normal mediastinum and thu. Normal visualized pulmonary arteries. Normal visualized aortic arch and descending thoracic aorta. There is a dextroscoliosis of the thoracic spine. There is degenerative change of the spine. Normal visualized ribs, clavicles, and shoulders. There is no demonstrated abnormality of the visualized soft tissue structures of the upper abdomen. RAD/Chest PA and Lateral IMPRESSION: Degenerative changes, as described above. No demonstrated acute cardiopulmonary process. Electronically Signed: Marco Antonio Mccoy MD at 18:22 EST , Service support ,
== END ==
LOC: RAD 17:15
PROVIDERS: PCP Family Medicine Geriatric Medicine; Referring Provider Family Medicine Geriatric Medicine; Visit Provider Family Medicine Geriatric Medicine
DX: R05 Cough (principal); R50.9 Fever, unspecified
CPT/HCPCS: 71046; 87633

== ENCOUNTER → 2019-09-20 12:13 | Outpatient (CLI) | payer MEDICARE, SELFPAY ==
[2019-09-12 11:30] VITALS: BMI 31.0
[2019-09-18 10:28] VITALS: BMI 29.9
[2019-09-20 12:40] VITALS: BP 144/69; PULSE 98; RESP 16; TEMP 36.4; O2SAT 98; BMI 31.1
[2019-09-20 13:22] VITALS: BP 125/65; PULSE 95; RESP 20
== END ==
LOC: MEDOUTP 12:13
PROVIDERS: PCP Family Medicine Geriatric Medicine; Referring Provider Internal Medicine Infectious Disease; Visit Provider Internal Medicine Infectious Disease
DX: E11.628 Type 2 diabetes mellitus with other skin complications (principal); M86.8X7 Other osteomyelitis, ankle and foot
CPT/HCPCS: 96365; J7050; A4216

== ENCOUNTER → 2019-09-21 12:04 | Outpatient (CLI) | payer MEDICARE, SELFPAY ==
[2019-09-12 11:30] VITALS: BMI 31.0
[2019-09-20 14:44] VITALS: BMI 31.1
[2019-09-21 12:38] VITALS: BP 145/90; PULSE 95; RESP 18; TEMP 36.3; O2SAT 99; BMI 31.1
[2019-09-21 12:52] LABS: Absolute Lymphocyte Count 1.56 X10^3/uL (0.83-4.51); Absolute Neutrophil Count 2.7 X10^3/uL (2.0-7.7); Basophil# 0.01 X10^3/uL; Basophil% 0.2 % (0-1); Eosinophil# 0.02 X10^3/uL; Eosinophils% 0.4 % (0-5); Hematocrit 34.2 % (40-54); Hemoglobin 11.1 g/dL (13.0-16.5); Lymphocyte # 1.56 X10^3/ul (4.0); Lymphocyte % 33.3 % (19-41); Mean Corp Hgb Conc 32.5 g/dL (32-36); Mean Corpuscular Hgb 28.3 pg (27.0-32.0); Mean Corpuscular Volume 87.2 fL (80-94); Mean Platelet Vol. 9.5 fl (6.2-12.0); Monocyte# 0.41 X10^3/uL; Monocyte% 8.8 % (0-10); NRBC Flagged by Analyzer 0 % (0-5); Neutrophil # 2.66 X10^3/uL (2.7-7.7); Neutrophil % 56.9 % (47-70); Platelet Count 365 K/mm3 (150-450); RBC Distribution Width CV 13.7 % (11.6-14.6); RBC Distribution Width SD 43.8 fl (35.1-43.9); Red Blood Count 3.92 M/mm3 (4.6-6.2); White Blood Count 4.7 K/mm3 (4.4-11.0)
[2019-09-21 12:58] LABS: Erythrocyte Sedimentation Rate 74 mm/hr (0-20)
[2019-09-21 13:14] LABS: AST(SGOT) 40 U/L (15-37); Alanine Aminotransfer ALT/SGPT 55 U/L (16-61); Albumin, Serum 2.7 g/dL (3.2-5.0); Alkaline Phosphatase 85 U/L (45-117); Anion Gap 5 (5-15); BUN 18 mg/dL (7-18); BUN/Creat Ratio 27.1 RATIO (10-20); Bilirubin, Direct 0.09 mg/dL (0.00-0.30); Calcium,Total 8.3 mg/dL (8.5-10.1); Chloride 111 mmol/L (98-107); Creatinine, Serum 0.66 mg/dL (0.70-1.30); EST Glomerular Filtration Rate 127 mL/min (>60); Est Glom Filt Rate - Afr Amer 154 mL/min (>60); Globulin 4.5 g/dL (2.2-4.2); Glucose 83 mg/dL (74-106); Potassium 3.2 mmol/L (3.5-5.1); Protein, Total 7.2 g/dL (6.4-8.2); Sodium Level 142 mmol/L (136-145)
[2019-09-21 13:23] VITALS: BP 155/84; PULSE 101
== END ==
LOC: MEDOUTP 12:05
PROVIDERS: PCP Family Medicine Geriatric Medicine; Referring Provider Internal Medicine Infectious Disease; Visit Provider Internal Medicine Infectious Disease
DX: E11.628 Type 2 diabetes mellitus with other skin complications (principal); M86.8X7 Other osteomyelitis, ankle and foot
CPT/HCPCS: 96365; 80048; 80076; 85025; 85652

== ENCOUNTER 2019-09-22 10:23 | Outpatient (CLI) | payer MEDICARE, SELFPAY ==
[2019-09-12 11:30] VITALS: BMI 31.0
[2019-09-21 12:38] VITALS: BMI 31.1
[2019-09-22 11:01] VITALS: BP 123/70; PULSE 87; RESP 18; TEMP 36.3
== END 2019-09-22 11:55 | disposition home or self-care (01) ==
LOC: MEDOUTP 10:24 → MS3 10:26
PROVIDERS: PCP Family Medicine Geriatric Medicine; Referring Provider Internal Medicine Infectious Disease; Visit Provider Internal Medicine Infectious Disease
DX: E11.628 Type 2 diabetes mellitus with other skin complications (principal); M86.8X7 Other osteomyelitis, ankle and foot
CPT/HCPCS: 96365

== ENCOUNTER 2019-09-23 10:26 | Outpatient (CLI) | payer MEDICARE, SELFPAY ==
[2019-09-12 11:30] VITALS: BMI 31.0
[2019-09-21 12:38] VITALS: BMI 31.1
[2019-09-23 10:33] VITALS: BP 107/66; PULSE 88; RESP 18; TEMP 36.3; O2SAT 99
[2019-09-23] MEDS: 0.9% Saline Lock 10 ML Syringe IV ×2 (10:39→11:23)
== END 2019-09-23 11:26 | disposition home or self-care (01) ==
LOC: MEDOUTP 10:27 → PCU 10:28
PROVIDERS: PCP Family Medicine Geriatric Medicine; Referring Provider Internal Medicine Infectious Disease; Visit Provider Internal Medicine Infectious Disease
DX: E11.628 Type 2 diabetes mellitus with other skin complications (principal); M86.8X7 Other osteomyelitis, ankle and foot
CPT/HCPCS: 96365; J7050; A4216

== ENCOUNTER → 2019-09-24 12:23 | Outpatient (CLI) | payer MEDICARE, SELFPAY ==
[2019-09-18 10:28] VITALS: BMI 29.9
[2019-09-21 12:38] VITALS: BMI 31.1
[2019-09-24 12:36] VITALS: BP 122/80; PULSE 93; RESP 18; TEMP 36.5; O2SAT 97; BMI 31.1
[2019-09-24 13:36] VITALS: BP 148/81; PULSE 86; RESP 16
== END ==
LOC: MEDOUTP 12:23
PROVIDERS: PCP Family Medicine Geriatric Medicine; Referring Provider Internal Medicine Infectious Disease; Visit Provider Internal Medicine Infectious Disease
DX: E11.628 Type 2 diabetes mellitus with other skin complications (principal); M86.8X7 Other osteomyelitis, ankle and foot
CPT/HCPCS: 96365; J7050; A4216

== ENCOUNTER → 2019-09-25 07:44 | Outpatient (CLI) | payer MEDICARE, SELFPAY ==
[2019-09-18 10:28] VITALS: BMI 29.9
[2019-09-24 12:36] VITALS: BMI 31.1
[2019-09-25 08:10] VITALS: BP 137/71; PULSE 83; RESP 18; TEMP 36.2; O2SAT 98; BMI 31.1
[2019-09-25] MEDS: 0.9% Saline Lock 10 ML Syringe IV (09:10)
== END ==
LOC: MEDOUTP 07:45
PROVIDERS: PCP Family Medicine Geriatric Medicine; Referring Provider Internal Medicine Infectious Disease; Visit Provider Internal Medicine Infectious Disease
DX: E11.628 Type 2 diabetes mellitus with other skin complications (principal); M86.8X7 Other osteomyelitis, ankle and foot
CPT/HCPCS: 96365; J7050; A4216

== ENCOUNTER → 2019-09-26 12:24 | Outpatient (CLI) | payer MEDICARE, SELFPAY ==
[2019-09-18 10:28] VITALS: BMI 29.9
[2019-09-25 08:10] VITALS: BMI 31.1
[2019-09-26 12:43] VITALS: BP 134/72; PULSE 95; RESP 16; TEMP 36.8; O2SAT 98; BMI 31.1
== END ==
LOC: MEDOUTP 12:25
PROVIDERS: PCP Family Medicine Geriatric Medicine; Referring Provider Internal Medicine Infectious Disease; Visit Provider Internal Medicine Infectious Disease
DX: E11.628 Type 2 diabetes mellitus with other skin complications (principal); M86.8X7 Other osteomyelitis, ankle and foot
CPT/HCPCS: 96365; J7050; A4216

== ENCOUNTER → 2019-09-27 12:16 | Outpatient (CLI) | payer MEDICARE, SELFPAY ==
[2019-09-18 10:28] VITALS: BMI 29.9
[2019-09-26 12:43] VITALS: BMI 31.1
[2019-09-27 12:32] VITALS: BP 140/79; PULSE 106; RESP 18; TEMP 36.6; O2SAT 96; BMI 31.1
== END ==
LOC: MEDOUTP 12:16
PROVIDERS: PCP Family Medicine Geriatric Medicine; Referring Provider Internal Medicine Infectious Disease; Visit Provider Internal Medicine Infectious Disease
DX: E11.628 Type 2 diabetes mellitus with other skin complications (principal); M86.8X7 Other osteomyelitis, ankle and foot
CPT/HCPCS: 96365; J7050; A4216

== ENCOUNTER → 2019-09-28 12:09 | Outpatient (CLI) | payer MEDICARE, SELFPAY ==
[2019-09-18 10:28] VITALS: BMI 29.9
[2019-09-27 12:32] VITALS: BMI 31.1
[2019-09-28] MEDS: 0.9% Saline Lock 10 ML Syringe IV ×2 (12:34→13:40)
[2019-09-28 12:41] VITALS: BP 116/65; PULSE 98; RESP 16; TEMP 36.4; O2SAT 99; BMI 31.1
[2019-09-28 13:10] LABS: Hematocrit 37.9 % (40-54); Hemoglobin 12.2 g/dL (13.0-16.5); Mean Corp Hgb Conc 32.2 g/dL (32-36); Mean Corpuscular Hgb 28.1 pg (27.0-32.0); Mean Corpuscular Volume 87.3 fL (80-94); Mean Platelet Vol. 9.4 fl (6.2-12.0); Platelet Count 311 K/mm3 (150-450); RBC Distribution Width CV 13.3 % (11.6-14.6); Red Blood Count 4.34 M/mm3 (4.6-6.2); White Blood Count 6.3 K/mm3 (4.4-11.0)
[2019-09-28 13:11] LABS: Erythrocyte Sedimentation Rate 49 mm/hr (0-20)
[2019-09-28 13:18] LABS: AST(SGOT) 28 U/L (15-37); Alanine Aminotransfer ALT/SGPT 45 U/L (16-61); Albumin, Serum 3.4 g/dL (3.2-5.0); Alkaline Phosphatase 118 U/L (45-117); Anion Gap 5 (5-15); BUN 13 mg/dL (7-18); BUN/Creat Ratio 16.2 RATIO (10-20); Bilirubin, Direct 0.14 mg/dL (0.00-0.30); Chloride 110 mmol/L (98-107); EST Glomerular Filtration Rate 102 mL/min (>60); Est Glom Filt Rate - Afr Amer 124 mL/min (>60); Estimated Creatinine Clearance 96.74 ml/min; Globulin 4.1 g/dL (2.2-4.2); Glucose 198 mg/dL (74-106); Potassium 3.7 mmol/L (3.5-5.1); Protein, Total 7.5 g/dL (6.4-8.2); Sodium Level 140 mmol/L (136-145)
== END ==
LOC: MEDOUTP 12:10
PROVIDERS: PCP Family Medicine Geriatric Medicine; Referring Provider Internal Medicine Infectious Disease; Visit Provider Internal Medicine Infectious Disease
DX: E11.628 Type 2 diabetes mellitus with other skin complications (principal); M86.8X7 Other osteomyelitis, ankle and foot
CPT/HCPCS: 96365; 36592; 80048; 80076; 85027; 85652; J7050; A4216

== ENCOUNTER 2019-09-29 09:33 | Outpatient (CLI) | payer MEDICARE, SELFPAY ==
[2019-09-20 14:44] VITALS: BMI 31.1
[2019-09-28 12:41] VITALS: BMI 31.1
[2019-09-29] MEDS: 0.9% Saline Lock 10 ML Syringe IV ×2 (09:43→10:44)
[2019-09-29 09:50] VITALS: BP 123/77; PULSE 95; RESP 18; TEMP 36.5; O2SAT 100
== END 2019-09-29 10:46 | disposition home or self-care (01) ==
LOC: MEDOUTP 09:41 → MS3 09:42
PROVIDERS: PCP Family Medicine Geriatric Medicine; Referring Provider Internal Medicine Infectious Disease; Visit Provider Internal Medicine Infectious Disease
DX: E11.628 Type 2 diabetes mellitus with other skin complications (principal); M86.8X7 Other osteomyelitis, ankle and foot
CPT/HCPCS: 96365; J7050; A4216

== ENCOUNTER 2019-09-30 10:45 | Outpatient (CLI) | payer MEDICARE, SELFPAY ==
[2019-09-20 14:44] VITALS: BMI 31.1
[2019-09-28 12:41] VITALS: BMI 31.1
[2019-09-30] MEDS: 0.9% Saline Lock 10 ML Syringe IV ×2 (10:45→11:38)
[2019-09-30 10:52] VITALS: BP 129/75; PULSE 91; RESP 18; TEMP 36.4; O2SAT 99
== END 2019-09-30 11:47 | disposition home or self-care (01) ==
LOC: MEDOUTP 10:46 → MS3 10:47
PROVIDERS: PCP Family Medicine Geriatric Medicine; Referring Provider Internal Medicine Infectious Disease; Visit Provider Internal Medicine Infectious Disease
DX: E11.628 Type 2 diabetes mellitus with other skin complications (principal); M86.8X7 Other osteomyelitis, ankle and foot
CPT/HCPCS: 96365; J7050; A4216

== ENCOUNTER → 2019-10-01 09:18 | Outpatient (CLI) | payer MEDICARE, SELFPAY ==
[2019-09-20 14:44] VITALS: BMI 31.1
[2019-09-28 12:41] VITALS: BMI 31.1
[2019-10-01 09:49] VITALS: BP 109/79; PULSE 98; RESP 16; TEMP 36.8; O2SAT 97; BMI 31.1
[2019-10-01] MEDS: 0.9% Saline Lock 10 ML Syringe IV ×2 (09:53→10:56)
== END ==
LOC: MEDOUTP 09:18
PROVIDERS: PCP Family Medicine Geriatric Medicine; Referring Provider Internal Medicine Infectious Disease; Visit Provider Internal Medicine Infectious Disease
DX: E11.628 Type 2 diabetes mellitus with other skin complications (principal); M86.8X7 Other osteomyelitis, ankle and foot
CPT/HCPCS: 96365; J7050; A4216

== ENCOUNTER → 2019-10-02 09:48 | Outpatient (CLI) | payer MEDICARE, SELFPAY ==
[2019-09-20 14:44] VITALS: BMI 31.1
[2019-10-01 09:49] VITALS: BMI 31.1
[2019-10-02] MEDS: 0.9% Saline Lock 10 ML Syringe IV ×2 (10:04→11:03)
[2019-10-02 10:05] VITALS: BP 122/78; PULSE 103; RESP 16; TEMP 36.1; O2SAT 98; BMI 31.1
[2019-10-02 11:01] VITALS: BP 131/82; PULSE 99; RESP 16; TEMP 36.4
== END ==
LOC: MEDOUTP 09:49
PROVIDERS: PCP Family Medicine Geriatric Medicine; Referring Provider Internal Medicine Infectious Disease; Visit Provider Internal Medicine Infectious Disease
DX: E11.628 Type 2 diabetes mellitus with other skin complications (principal); M86.8X7 Other osteomyelitis, ankle and foot
CPT/HCPCS: 96365; J7050; A4216

== ENCOUNTER → 2019-10-03 08:37 | Outpatient (CLI) | payer MEDICARE, SELFPAY ==
[2019-09-20 14:44] VITALS: BMI 31.1
[2019-10-02 10:05] VITALS: BMI 31.1
[2019-10-03 08:44] VITALS: BP 104/63; PULSE 96; RESP 18; TEMP 36.3; O2SAT 96; BMI 31.1
[2019-10-03] MEDS: 0.9% NaCl PICC Flush IV ×2 (09:00→10:06)
[2019-10-03] MEDS: 0.9% NaCl IVPB Med Flush (250 mL) 15 ML IV (09:18)
== END ==
LOC: MEDOUTP 08:38
PROVIDERS: PCP Family Medicine Geriatric Medicine; Referring Provider Internal Medicine Infectious Disease; Visit Provider Internal Medicine Infectious Disease
DX: M86.9 Osteomyelitis, unspecified (principal); E11.628 Type 2 diabetes mellitus with other skin complications
CPT/HCPCS: 96365; J7050; A4216

== ENCOUNTER → 2019-10-04 08:17 | Outpatient (CLI) | payer MEDICARE, SELFPAY ==
[2019-09-20 14:44] VITALS: BMI 31.1
[2019-10-03 08:44] VITALS: BMI 31.1
[2019-10-04 08:34] VITALS: BP 151/83; PULSE 103; RESP 18; TEMP 36.7; O2SAT 98; BMI 31.1
[2019-10-04] MEDS: 0.9% NaCl PICC Flush IV (08:37)
[2019-10-04] MEDS: 0.9% NaCl IVPB Med Flush (250 mL) 15 ML IV (08:37)
[2019-10-04 10:21] VITALS: BP 124/56; PULSE 58; RESP 16; TEMP 36.3; O2SAT 98; BMI 32.3
== END ==
LOC: MEDOUTP 08:17
PROVIDERS: PCP Family Medicine Geriatric Medicine; Referring Provider Internal Medicine Infectious Disease; Visit Provider Internal Medicine Infectious Disease
DX: E11.628 Type 2 diabetes mellitus with other skin complications (principal); M86.8X7 Other osteomyelitis, ankle and foot
CPT/HCPCS: 96365; J7050; A4216

== ENCOUNTER → 2019-10-05 09:39 | Outpatient (CLI) | payer MEDICARE, SELFPAY ==
[2019-09-20 14:44] VITALS: BMI 31.1
[2019-10-04 10:21] VITALS: BMI 32.3
[2019-10-05] MEDS: 0.9% NaCl IVPB Med Flush (250 mL) 15 ML IV (10:03)
[2019-10-05] MEDS: 0.9% NaCl PICC Flush IV ×2 (10:05→10:59)
[2019-10-05 10:06] VITALS: BP 116/72; PULSE 107; RESP 18; TEMP 36.9; BMI 31.1
[2019-10-05 10:22] LABS: Hematocrit 37.9 % (40-54); Mean Corp Hgb Conc 31.7 g/dL (32-36); Mean Corpuscular Hgb 27.5 pg (27.0-32.0); Mean Corpuscular Volume 86.9 fL (80-94); Mean Platelet Vol. 9.8 fl (6.2-12.0); Platelet Count 211 K/mm3 (150-450); RBC Distribution Width CV 13.7 % (11.6-14.6); RBC Distribution Width SD 42.6 fl (35.1-43.9); Red Blood Count 4.36 M/mm3 (4.6-6.2); White Blood Count 5.1 K/mm3 (4.4-11.0)
[2019-10-05 10:28] LABS: Erythrocyte Sedimentation Rate 30 mm/hr (0-20)
[2019-10-05 10:33] LABS: AST(SGOT) 20 U/L (15-37); Alanine Aminotransfer ALT/SGPT 40 U/L (16-61); Albumin, Serum 3.6 g/dL (3.2-5.0); Alkaline Phosphatase 125 U/L (45-117); Anion Gap 5 (5-15); BUN 10 mg/dL (7-18); BUN/Creat Ratio 11.9 RATIO (10-20); Bilirubin, Direct 0.25 mg/dL (0.00-0.30); Calcium,Total 8.9 mg/dL (8.5-10.1); Chloride 106 mmol/L (98-107); Creatinine, Serum 0.84 mg/dL (0.70-1.30); EST Glomerular Filtration Rate 97 mL/min (>60); Est Glom Filt Rate - Afr Amer 118 mL/min (>60); Estimated Creatinine Clearance 92.13 ml/min; Globulin 3.8 g/dL (2.2-4.2); Glucose 278 mg/dL (74-106); Potassium 3.8 mmol/L (3.5-5.1); Protein, Total 7.4 g/dL (6.4-8.2); Sodium Level 138 mmol/L (136-145)
== END ==
LOC: MEDOUTP 09:39
PROVIDERS: PCP Family Medicine Geriatric Medicine; Referring Provider Internal Medicine Infectious Disease; Visit Provider Internal Medicine Infectious Disease
DX: E11.628 Type 2 diabetes mellitus with other skin complications (principal); M86.8X7 Other osteomyelitis, ankle and foot
CPT/HCPCS: 96365; 80048; 80076; 85027; 85652; J7050; A4216

== ENCOUNTER 2019-10-06 10:12 | Outpatient (CLI) | payer MEDICARE, SELFPAY ==
[2019-09-20 14:44] VITALS: BMI 31.1
[2019-10-05 10:06] VITALS: BMI 31.1
[2019-10-06] MEDS: 0.9% Saline Lock 10 ML Syringe IV ×2 (10:26→11:18)
[2019-10-06 10:31] VITALS: BP 106/63; PULSE 72; RESP 18; TEMP 36.6; O2SAT 99
== END 2019-10-06 11:20 | disposition home or self-care (01) ==
LOC: MEDOUTP 10:12 → MS3 10:12
PROVIDERS: PCP Family Medicine Geriatric Medicine; Referring Provider Internal Medicine Infectious Disease; Visit Provider Internal Medicine Infectious Disease
DX: M86.9 Osteomyelitis, unspecified (principal); E11.628 Type 2 diabetes mellitus with other skin complications
CPT/HCPCS: 96365; J7050; A4216

== ENCOUNTER 2019-10-07 09:00 | Outpatient (CLI) | payer MEDICARE, SELFPAY ==
[2019-09-20 14:44] VITALS: BMI 31.1
[2019-10-05 10:06] VITALS: BMI 31.1
[2019-10-07] MEDS: 0.9% Saline Lock 10 ML Syringe IV ×2 (09:15→10:12)
[2019-10-07 09:21] VITALS: BP 109/72; PULSE 92; RESP 18; TEMP 36.6; O2SAT 99
== END 2019-10-07 10:13 | disposition home or self-care (01) ==
LOC: MEDOUTP 09:11 → MS3 09:12
PROVIDERS: PCP Family Medicine Geriatric Medicine; Referring Provider Internal Medicine Infectious Disease; Visit Provider Internal Medicine Infectious Disease
DX: M86.9 Osteomyelitis, unspecified (principal); E11.628 Type 2 diabetes mellitus with other skin complications
CPT/HCPCS: 96365; J7050; A4216

== ENCOUNTER → 2019-10-08 09:26 | Outpatient (CLI) | payer MEDICARE, SELFPAY ==
[2019-09-20 14:44] VITALS: BMI 31.1
[2019-10-05 10:06] VITALS: BMI 31.1
[2019-10-08 09:53] VITALS: BP 151/78; PULSE 94; RESP 18; TEMP 36.5; O2SAT 98; BMI 31.1
[2019-10-08] MEDS: 0.9% NaCl IVPB Med Flush (250 mL) 15 ML IV (09:56)
[2019-10-08] MEDS: 0.9% NaCl PICC Flush IV ×2 (09:58→11:06)
== END ==
PROVIDERS: PCP Family Medicine Geriatric Medicine; Referring Provider Internal Medicine Infectious Disease; Visit Provider Internal Medicine Infectious Disease
DX: E11.628 Type 2 diabetes mellitus with other skin complications (principal); M86.8X7 Other osteomyelitis, ankle and foot
CPT/HCPCS: 96365; J7050; A4216

== ENCOUNTER → 2019-10-09 09:48 | Outpatient (CLI) | payer MEDICARE, SELFPAY ==
[2019-09-20 14:44] VITALS: BMI 31.1
[2019-10-08 09:53] VITALS: BMI 31.1
[2019-10-09 09:54] VITALS: BP 139/78; PULSE 103; RESP 18; TEMP 36.1; O2SAT 100; BMI 31.1
[2019-10-09] MEDS: 0.9% NaCl IVPB Med Flush (250 mL) 15 ML IV (09:58)
[2019-10-09] MEDS: 0.9% NaCl PICC Flush IV ×2 (10:01→10:51)
[2019-10-09 10:52] VITALS: BP 121/73; PULSE 92
== END ==
LOC: MEDOUTP 09:48
PROVIDERS: PCP Family Medicine Geriatric Medicine; Referring Provider Internal Medicine Infectious Disease; Visit Provider Internal Medicine Infectious Disease
DX: E11.628 Type 2 diabetes mellitus with other skin complications (principal); M86.8X7 Other osteomyelitis, ankle and foot
CPT/HCPCS: 96365; J7050; A4216

== ENCOUNTER → 2019-10-10 12:12 | Outpatient (CLI) | payer MEDICARE, SELFPAY ==
[2019-09-20 14:44] VITALS: BMI 31.1
[2019-10-09 09:54] VITALS: BMI 31.1
[2019-10-10] MEDS: 0.9% NaCl PICC Flush IV ×2 (12:24→13:27)
[2019-10-10] MEDS: 0.9% NaCl IVPB Med Flush (250 mL) 15 ML IV (12:25)
[2019-10-10 12:30] VITALS: BP 125/71; PULSE 101; RESP 18; TEMP 35.8; O2SAT 97; BMI 31.1
== END ==
LOC: MEDOUTP 12:12
PROVIDERS: PCP Family Medicine Geriatric Medicine; Referring Provider Internal Medicine Infectious Disease; Visit Provider Internal Medicine Infectious Disease
DX: E11.628 Type 2 diabetes mellitus with other skin complications (principal); M86.8X7 Other osteomyelitis, ankle and foot
CPT/HCPCS: 96365; J7050; A4216

== ENCOUNTER → 2019-10-11 09:50 | Outpatient (CLI) | payer MEDICARE, SELFPAY ==
[2019-09-20 14:44] VITALS: BMI 31.1
[2019-10-10 12:30] VITALS: BMI 31.1
[2019-10-11] MEDS: 0.9% NaCl PICC Flush IV ×2 (10:12→11:16)
[2019-10-11] MEDS: 0.9% NaCl IVPB Med Flush (250 mL) 15 ML IV (10:15)
[2019-10-11 10:16] VITALS: BP 138/80; PULSE 98; RESP 18; TEMP 36.3; O2SAT 98; BMI 31.1
== END ==
LOC: MEDOUTP 09:51
PROVIDERS: PCP Family Medicine Geriatric Medicine; Referring Provider Internal Medicine Infectious Disease; Visit Provider Internal Medicine Infectious Disease
DX: M86.9 Osteomyelitis, unspecified (principal); E11.628 Type 2 diabetes mellitus with other skin complications
CPT/HCPCS: 96365; J7050; A4216

== ENCOUNTER → 2019-10-12 12:03 | Outpatient (CLI) | payer MEDICARE, SELFPAY ==
[2019-09-20 14:44] VITALS: BMI 31.1
[2019-10-11 10:16] VITALS: BMI 31.1
[2019-10-12] MEDS: 0.9% NaCl PICC Flush IV ×2 (12:34→13:47)
[2019-10-12] MEDS: 0.9% NaCl IVPB Med Flush (250 mL) 15 ML IV (12:34)
[2019-10-12 12:49] VITALS: BP 129/70; PULSE 94; RESP 16; TEMP 36.8; O2SAT 96; BMI 31.1
[2019-10-12 13:20] LABS: Hematocrit 36.2 % (40-54); Hemoglobin 11.9 g/dL (13.0-16.5); Mean Corp Hgb Conc 32.9 g/dL (32-36); Mean Corpuscular Hgb 28.4 pg (27.0-32.0); Mean Corpuscular Volume 86.4 fL (80-94); Mean Platelet Vol. 10.1 fl (6.2-12.0); Platelet Count 171 K/mm3 (150-450); RBC Distribution Width CV 13.9 % (11.6-14.6); RBC Distribution Width SD 43.3 fl (35.1-43.9); Red Blood Count 4.19 M/mm3 (4.6-6.2); White Blood Count 5.2 K/mm3 (4.4-11.0)
[2019-10-12 13:38] LABS: Erythrocyte Sedimentation Rate 31 mm/hr (0-20)
[2019-10-12 13:41] LABS: ALB/GLOB Ratio 0.9 RATIO (0.9-2.4); AST(SGOT) 24 U/L (15-37); Alanine Aminotransfer ALT/SGPT 51 U/L (16-61); Albumin, Serum 3.5 g/dL (3.2-5.0); Alkaline Phosphatase 135 U/L (45-117); Anion Gap 7 (5-15); BUN 8 mg/dL (7-18); Bilirubin, Direct 0.17 mg/dL (0.00-0.30); Calcium,Total 8.6 mg/dL (8.5-10.1); Chloride 103 mmol/L (98-107); Creatinine, Serum 0.73 mg/dL (0.70-1.30); EST Glomerular Filtration Rate 115 mL/min (>60); Est Glom Filt Rate - Afr Amer 139 mL/min (>60); Globulin 3.7 g/dL (2.2-4.2); Glucose 264 mg/dL (74-106); Potassium 3.7 mmol/L (3.5-5.1); Protein, Total 7.2 g/dL (6.4-8.2); Sodium Level 137 mmol/L (136-145)
== END ==
LOC: MEDOUTP 12:03
PROVIDERS: PCP Family Medicine Geriatric Medicine; Referring Provider Internal Medicine Infectious Disease; Visit Provider Internal Medicine Infectious Disease
DX: E11.628 Type 2 diabetes mellitus with other skin complications (principal); M86.8X7 Other osteomyelitis, ankle and foot
CPT/HCPCS: 96365; 36592; 80053; 82248; 85027; 85652; J7050; A4216

== ENCOUNTER 2019-10-13 10:14 | Outpatient (CLI) | payer MEDICARE, SELFPAY ==
[2019-09-20 14:44] VITALS: BMI 31.1
[2019-10-12 12:49] VITALS: BMI 31.1
[2019-10-13 10:19] VITALS: BP 118/67; PULSE 89; RESP 16; TEMP 36.4; O2SAT 100
[2019-10-13] MEDS: 0.9% Saline Lock 10 ML Syringe IV (11:18)
== END 2019-10-13 11:22 | disposition home or self-care (01) ==
LOC: MEDOUTP 10:14 → PCU 10:15
PROVIDERS: PCP Family Medicine Geriatric Medicine; Referring Provider Internal Medicine Infectious Disease; Visit Provider Internal Medicine Infectious Disease
DX: E11.628 Type 2 diabetes mellitus with other skin complications (principal); M86.8X7 Other osteomyelitis, ankle and foot
CPT/HCPCS: 96365; A4216

== ENCOUNTER 2019-10-14 10:48 | Outpatient (CLI) | payer MEDICARE, SELFPAY ==
[2019-09-20 14:44] VITALS: BMI 31.1
[2019-10-12 12:49] VITALS: BMI 31.1
[2019-10-14 10:54] VITALS: BP 129/80; PULSE 98; RESP 18; TEMP 36.9; O2SAT 99
== END 2019-10-14 11:48 | disposition home or self-care (01) ==
LOC: MEDOUTP 10:49 → PCU 10:49
PROVIDERS: PCP Family Medicine Geriatric Medicine; Referring Provider Internal Medicine Infectious Disease; Visit Provider Internal Medicine Infectious Disease
DX: E11.628 Type 2 diabetes mellitus with other skin complications (principal); M86.8X7 Other osteomyelitis, ankle and foot
CPT/HCPCS: 96365; J7050

== ENCOUNTER → 2019-10-15 11:20 | Outpatient (CLI) | payer MEDICARE, SELFPAY ==
[2019-09-20 14:44] VITALS: BMI 31.1
[2019-10-12 12:49] VITALS: BMI 31.1
[2019-10-15] MEDS: 0.9% NaCl IVPB Med Flush (250 mL) 15 ML IV (11:40)
[2019-10-15 11:42] VITALS: BP 130/78; PULSE 105; RESP 16; TEMP 36.8; BMI 31.1
[2019-10-15] MEDS: 0.9% NaCl PICC Flush IV (12:32)
== END ==
LOC: MEDOUTP 11:20
PROVIDERS: PCP Family Medicine Geriatric Medicine; Referring Provider Internal Medicine Infectious Disease; Visit Provider Internal Medicine Infectious Disease
DX: E11.628 Type 2 diabetes mellitus with other skin complications (principal); M86.8X7 Other osteomyelitis, ankle and foot
CPT/HCPCS: 96365; J7050; A4216

== ENCOUNTER → 2019-10-16 11:51 | Outpatient (CLI) | payer MEDICARE, SELFPAY ==
[2019-09-20 14:44] VITALS: BMI 31.1
[2019-10-15 11:42] VITALS: BMI 31.1
[2019-10-16] MEDS: 0.9% NaCl IVPB Med Flush (250 mL) 15 ML IV (12:00)
[2019-10-16 12:12] VITALS: BP 115/68; PULSE 87; RESP 16; TEMP 36.4; O2SAT 98; BMI 31.1
[2019-10-16] MEDS: 0.9% NaCl PICC Flush IV ×2 (12:17→13:28)
== END ==
LOC: MEDOUTP 11:51
PROVIDERS: PCP Family Medicine Geriatric Medicine; Referring Provider Internal Medicine Infectious Disease; Visit Provider Internal Medicine Infectious Disease
DX: E11.628 Type 2 diabetes mellitus with other skin complications (principal); M86.8X7 Other osteomyelitis, ankle and foot
CPT/HCPCS: 96365; J7050; A4216

== ENCOUNTER → 2019-10-17 10:53 | Outpatient (CLI) | payer MEDICARE, SELFPAY ==
[2019-09-20 14:44] VITALS: BMI 31.1
[2019-10-16 12:12] VITALS: BMI 31.1
[2019-10-17 11:00] VITALS: BP 113/71; PULSE 113; RESP 16; TEMP 36.6; O2SAT 98; BMI 31.1
[2019-10-17] MEDS: 0.9% NaCl PICC Flush IV ×2 (11:10→12:00)
[2019-10-17] MEDS: 0.9% NaCl IVPB Med Flush (250 mL) 15 ML IV (11:13)
== END ==
LOC: MEDOUTP 10:53
PROVIDERS: PCP Family Medicine Geriatric Medicine; Referring Provider Internal Medicine Infectious Disease; Visit Provider Internal Medicine Infectious Disease
DX: E11.628 Type 2 diabetes mellitus with other skin complications (principal); M86.8X7 Other osteomyelitis, ankle and foot
CPT/HCPCS: 96365; J7050; A4216

== ENCOUNTER → 2019-10-18 12:00 | Outpatient (CLI) | payer MEDICARE, SELFPAY ==
[2019-09-20 14:44] VITALS: BMI 31.1
[2019-10-17 11:00] VITALS: BMI 31.1
[2019-10-18 12:14] VITALS: BP 143/76; PULSE 107; RESP 18; TEMP 36.6; O2SAT 97; BMI 31.1
[2019-10-18] MEDS: 0.9% NaCl PICC Flush IV ×2 (12:21→13:27)
[2019-10-18] MEDS: 0.9% NaCl IVPB Med Flush (250 mL) 15 ML IV (12:26)
== END ==
LOC: MEDOUTP 12:00
PROVIDERS: PCP Family Medicine Geriatric Medicine; Referring Provider Internal Medicine Infectious Disease; Visit Provider Internal Medicine Infectious Disease
DX: E11.628 Type 2 diabetes mellitus with other skin complications (principal); M86.8X7 Other osteomyelitis, ankle and foot
CPT/HCPCS: 96365; J7050; A4216

== ENCOUNTER → 2019-10-19 12:57 | Outpatient (CLI) | payer MEDICARE, SELFPAY ==
[2019-09-20 14:44] VITALS: BMI 31.1
[2019-10-18 12:14] VITALS: BMI 31.1
[2019-10-19 13:09] VITALS: BP 120/75; PULSE 125; RESP 18; TEMP 36.3; O2SAT 97; BMI 31.1
[2019-10-19] MEDS: 0.9% NaCl PICC Flush IV ×2 (13:24→14:53)
[2019-10-19] MEDS: 0.9% NaCl IVPB Med Flush (250 mL) 100 ML IV (13:25)
[2019-10-19 15:03] LABS: Erythrocyte Sedimentation Rate 26 mm/hr (0-20)
[2019-10-19 15:04] LABS: Absolute Lymphocyte Count 2.57 X10^3/uL (0.83-4.51); Absolute Neutrophil Count 3.6 X10^3/uL (2.0-7.7); Basophil# 0.03 X10^3/uL; Basophil% 0.4 % (0-1); Eosinophils% 1.5 % (0-5); Hematocrit 36.6 % (40-54); Hemoglobin 11.9 g/dL (13.0-16.5); Lymphocyte # 2.57 X10^3/ul (4.0); Lymphocyte % 37.9 % (19-41); Mean Corp Hgb Conc 32.5 g/dL (32-36); Mean Corpuscular Hgb 28.5 pg (27.0-32.0); Mean Corpuscular Volume 87.6 fL (80-94); Mean Platelet Vol. 10.1 fl (6.2-12.0); Monocyte% 7.4 % (0-10); NRBC Flagged by Analyzer 0 % (0-5); Neutrophil # 3.57 X10^3/uL (2.7-7.7); Neutrophil % 52.7 % (47-70); Platelet Count 220 K/mm3 (150-450); RBC Distribution Width CV 14.3 % (11.6-14.6); RBC Distribution Width SD 45.8 fl (35.1-43.9); Red Blood Count 4.18 M/mm3 (4.6-6.2); White Blood Count 6.8 K/mm3 (4.4-11.0)
[2019-10-19 15:19] LABS: AST(SGOT) 20 U/L (15-37); Alanine Aminotransfer ALT/SGPT 32 U/L (16-61); Albumin, Serum 3.6 g/dL (3.2-5.0); Alkaline Phosphatase 117 U/L (45-117); Anion Gap 7 (5-15); BUN 7 mg/dL (7-18); BUN/Creat Ratio 9.7 RATIO (10-20); Calcium,Total 8.8 mg/dL (8.5-10.1); Chloride 107 mmol/L (98-107); Creatinine, Serum 0.72 mg/dL (0.70-1.30); EST Glomerular Filtration Rate 116 mL/min (>60); Est Glom Filt Rate - Afr Amer 141 mL/min (>60); Estimated Creatinine Clearance 77.39 ml/min; Globulin 3.3 g/dL (2.2-4.2); Glucose 200 mg/dL (74-106); Potassium 3.4 mmol/L (3.5-5.1); Protein, Total 6.9 g/dL (6.4-8.2); Sodium Level 140 mmol/L (136-145)
== END ==
LOC: MEDOUTP 12:57
PROVIDERS: PCP Family Medicine Geriatric Medicine; Referring Provider Internal Medicine Infectious Disease; Visit Provider Internal Medicine Infectious Disease
DX: E11.628 Type 2 diabetes mellitus with other skin complications (principal); M86.8X7 Other osteomyelitis, ankle and foot
CPT/HCPCS: 96365; 36592; 80048; 80076; 85025; 85652; J7050; A4216

== ENCOUNTER 2019-10-20 09:51 | Outpatient (CLI) | payer MEDICARE, SELFPAY ==
[2019-09-20 14:44] VITALS: BMI 31.1
[2019-10-19 13:09] VITALS: BMI 31.1
[2019-10-20 10:07] VITALS: BP 139/93; PULSE 107; RESP 15; TEMP 36.6; O2SAT 98; BMI 31.1
[2019-10-20] MEDS: 0.9% NaCl PICC Flush IV ×2 (10:15→11:09)
== END 2019-10-20 11:09 | disposition home or self-care (01) ==
LOC: MEDOUTP 09:53 → PCU 09:54
PROVIDERS: PCP Family Medicine Geriatric Medicine; Referring Provider Internal Medicine Infectious Disease; Visit Provider Internal Medicine Infectious Disease
DX: E11.628 Type 2 diabetes mellitus with other skin complications (principal); M86.8X7 Other osteomyelitis, ankle and foot
CPT/HCPCS: 96365; J7040; A4216

== ENCOUNTER 2019-10-21 09:30 | Outpatient (CLI) | payer MEDICARE, SELFPAY ==
[2019-09-20 14:44] VITALS: BMI 31.1
[2019-10-20 10:07] VITALS: BMI 31.1
[2019-10-21 09:35] VITALS: BP 145/78; PULSE 105; RESP 14; TEMP 36.6; O2SAT 99; BMI 31.1
[2019-10-21] MEDS: 0.9% Saline Lock 10 ML Syringe IV ×2 (09:40→10:26)
== END 2019-10-21 10:20 | disposition home or self-care (01) ==
LOC: MEDOUTP 09:31 → PCU 09:32
PROVIDERS: PCP Family Medicine Geriatric Medicine; Visit Provider Internal Medicine Infectious Disease
DX: E11.628 Type 2 diabetes mellitus with other skin complications (principal); M86.8X7 Other osteomyelitis, ankle and foot
CPT/HCPCS: 96365; J7040; A4216

== ENCOUNTER → 2019-10-22 11:40 | Outpatient (CLI) | payer MEDICARE, SELFPAY ==
[2019-09-20 14:44] VITALS: BMI 31.1
[2019-10-21 09:35] VITALS: BMI 31.1
[2019-10-22 11:46] VITALS: BP 136/79; PULSE 98; RESP 18; TEMP 36.5; O2SAT 98; BMI 31.1
[2019-10-22] MEDS: 0.9% NaCl IVPB Med Flush (250 mL) 15 ML IV (11:55)
[2019-10-22] MEDS: 0.9% NaCl PICC Flush IV ×2 (11:56→13:01)
[2019-10-22 12:59] VITALS: BP 132/75; PULSE 96; TEMP 36.6
== END ==
LOC: MEDOUTP 11:41
PROVIDERS: PCP Family Medicine Geriatric Medicine; Referring Provider Internal Medicine Infectious Disease; Visit Provider Internal Medicine Infectious Disease
DX: E11.628 Type 2 diabetes mellitus with other skin complications (principal); M86.8X7 Other osteomyelitis, ankle and foot
CPT/HCPCS: 96365; J7050; A4216

== ENCOUNTER → 2019-10-23 12:28 | Outpatient (CLI) | payer MEDICARE, SELFPAY ==
[2019-09-20 14:44] VITALS: BMI 31.1
[2019-10-22 11:46] VITALS: BMI 31.1
[2019-10-23 12:45] VITALS: BP 107/67; PULSE 117; RESP 18; TEMP 36.8; O2SAT 96; BMI 31.1
[2019-10-23] MEDS: 0.9% NaCl IVPB Med Flush (250 mL) 15 ML IV (12:47)
[2019-10-23] MEDS: 0.9% NaCl PICC Flush IV ×2 (12:47→13:45)
== END ==
LOC: MEDOUTP 12:28
PROVIDERS: PCP Family Medicine Geriatric Medicine; Referring Provider Internal Medicine Infectious Disease; Visit Provider Internal Medicine Infectious Disease
DX: E11.628 Type 2 diabetes mellitus with other skin complications (principal); M86.8X7 Other osteomyelitis, ankle and foot
CPT/HCPCS: 96365; J7050; A4216

== ENCOUNTER → 2019-10-24 11:42 | Outpatient (CLI) | payer MEDICARE, SELFPAY ==
[2019-09-20 14:44] VITALS: BMI 31.1
[2019-10-23 12:45] VITALS: BMI 31.1
[2019-10-24] MEDS: 0.9% NaCl IVPB Med Flush (250 mL) 15 ML IV (12:02)
[2019-10-24 12:05] VITALS: BP 111/74; PULSE 110; RESP 16; TEMP 36.6; BMI 31.1
[2019-10-24] MEDS: 0.9% NaCl PICC Flush IV (12:47)
[2019-10-24 12:48] VITALS: BP 110/62; PULSE 104; RESP 16; TEMP 36.6; O2SAT 97
== END ==
LOC: MEDOUTP 11:42
PROVIDERS: PCP Family Medicine Geriatric Medicine; Referring Provider Internal Medicine Infectious Disease; Visit Provider Internal Medicine Infectious Disease
DX: E11.628 Type 2 diabetes mellitus with other skin complications (principal); M86.8X7 Other osteomyelitis, ankle and foot
CPT/HCPCS: 96365; J7050; A4216

== ENCOUNTER → 2019-10-25 12:16 | Outpatient (CLI) | payer MEDICARE, SELFPAY ==
[2019-09-20 14:44] VITALS: BMI 31.1
[2019-10-24 12:05] VITALS: BMI 31.1
[2019-10-25] MEDS: 0.9% NaCl PICC Flush IV ×2 (12:30→13:31)
[2019-10-25] MEDS: 0.9% NaCl IVPB Med Flush (250 mL) 15 ML IV (12:30)
[2019-10-25 12:36] VITALS: BP 117/69; PULSE 112; RESP 16; TEMP 36.9; O2SAT 96; BMI 31.1
== END ==
PROVIDERS: PCP Family Medicine Geriatric Medicine; Referring Provider Internal Medicine Infectious Disease; Visit Provider Internal Medicine Infectious Disease
DX: E11.628 Type 2 diabetes mellitus with other skin complications (principal); M86.8X7 Other osteomyelitis, ankle and foot
CPT/HCPCS: 96365; J7050; A4216

== ENCOUNTER → 2019-10-26 12:08 | Outpatient (CLI) | payer MEDICARE, SELFPAY ==
[2019-09-20 14:44] VITALS: BMI 31.1
[2019-10-25 12:36] VITALS: BMI 31.1
[2019-10-26] MEDS: 0.9% NaCl PICC Flush IV (12:24)
[2019-10-26] MEDS: 0.9% NaCl IVPB Med Flush (250 mL) 15 ML IV (12:28)
[2019-10-26 12:29] VITALS: BP 119/67; PULSE 110; RESP 16; TEMP 36.9; O2SAT 96; BMI 31.1
== END ==
PROVIDERS: PCP Family Medicine Geriatric Medicine; Referring Provider Internal Medicine Infectious Disease; Visit Provider Internal Medicine Infectious Disease
DX: E11.628 Type 2 diabetes mellitus with other skin complications (principal); M86.8X7 Other osteomyelitis, ankle and foot
CPT/HCPCS: 96365; J7050; A4216

== ENCOUNTER → 2019-11-14 13:51 | Outpatient (CLI) | payer MEDICARE, SELFPAY ==
[2019-10-26 12:29] VITALS: BMI 31.1
[2019-11-14 14:51] LABS: Absolute Lymphocyte Count 2.07 X10^3/uL (0.83-4.51); Basophil# 0.04 X10^3/uL; Basophil% 0.6 % (0-1); Eosinophil# 0.11 X10^3/uL; Eosinophils% 1.6 % (0-5); Hematocrit 41.1 % (40-54); Hemoglobin 13.3 g/dL (13.0-16.5); Lymphocyte # 2.07 X10^3/ul (4.0); Lymphocyte % 30.6 % (19-41); Mean Corp Hgb Conc 32.4 g/dL (32-36); Mean Corpuscular Hgb 28.5 pg (27.0-32.0); Mean Corpuscular Volume 88.2 fL (80-94); Mean Platelet Vol. 10.1 fl (6.2-12.0); Monocyte% 7.4 % (0-10); NRBC Flagged by Analyzer 0 % (0-5); Neutrophil # 4.03 X10^3/uL (2.7-7.7); Neutrophil % 59.5 % (47-70); Platelet Count 262 K/mm3 (150-450); RBC Distribution Width CV 14.5 % (11.6-14.6); RBC Distribution Width SD 46.4 fl (35.1-43.9); Red Blood Count 4.66 M/mm3 (4.6-6.2); White Blood Count 6.8 K/mm3 (4.4-11.0)
[2019-11-14 15:50] LABS: ALB/GLOB Ratio 0.9 RATIO (0.9-2.4); AST(SGOT) 19 U/L (15-37); Alanine Aminotransfer ALT/SGPT 32 U/L (16-61); Albumin, Serum 3.6 g/dL (3.2-5.0); Alkaline Phosphatase 153 U/L (45-117); Anion Gap 4 (5-15); BUN 11 mg/dL (7-18); BUN/Creat Ratio 10.7 RATIO (10-20); Calcium,Total 8.7 mg/dL (8.5-10.1); Chloride 104 mmol/L (98-107); Cholesterol 242 mg/dL (200); Creatinine, Serum 1.03 mg/dL (0.70-1.30); EST Glomerular Filtration Rate 77 mL/min (>60); Est Glom Filt Rate - Afr Amer 93 mL/min (>60); Globulin 3.9 g/dL (2.2-4.2); Glucose 463 mg/dL (74-106); High Density Lipoprotein 43 mg/dL; Protein, Total 7.5 g/dL (6.4-8.2); Sodium Level 135 mmol/L (136-145); Thyroid Stim Hormone (TSH) 0.68 uIU/mL (0.358-3.74); Triglycerides 361 mg/dL; Very Low Density Lipoprotein 72 mg/dL (5-40)
== END ==
PROVIDERS: PCP Family Medicine Geriatric Medicine; Referring Provider Family Medicine Geriatric Medicine; Visit Provider Family Medicine Geriatric Medicine
DX: M86.9 Osteomyelitis, unspecified (principal); E11.628 Type 2 diabetes mellitus with other skin complications; E78.5 Hyperlipidemia, unspecified; F52.8 Other sexual dysfunction not due to a substance or known physiological condition; I10 Essential (primary) hypertension
CPT/HCPCS: 36415; 80053; 80061; 84403; 84443; 85025

== ENCOUNTER 2020-01-11 02:51 | Emergency (ER) | payer MEDICARE, SELFPAY ==
[2019-10-26 12:29] VITALS: BMI 31.1
[2020-01-11 02:55] VITALS: BP 187/96; PULSE 97; RESP 18; TEMP 36.5; O2SAT 99; BMI 29.8
--- NOTE | 2020-01-11 03:17 | ED.DCSUM_ITS ---
History of Present Illness Chief Complaint: Back Informant: Patient Onset: Days - 4 days Context: Gradual Onset Current Severity: Moderate Maximum Severity: Moderate Narrative: Patient presents with a 4-day history of right lower back pain with sciatica. He has had similar in the past. He is currently on Neurontin and was using desonide cream. He also took Aleve. Patient is on Coumadin and is a diabetic. He denies recent fall or injury. He has had 2 prior back surgeries. No problems with bowel or bladder control. - Past Medical History (1) Type 2 diabetes mellitus with diabetic polyneuropathy Status: Chronic (2) COPD (chronic obstructive pulmonary disease) Status: Chronic (3) DVT (deep venous thrombosis) Status: Chronic (4) GERD (gastroesophageal reflux disease) Status: Chronic (5) Hyperlipidemia Status: Chronic (6) Hypertension Status: Chronic (7) Lumbar spinal stenosis Status: Chronic (8) Obstructive sleep apnea Status: Chronic (9) Peripheral vascular disease Status: Chronic Past Medical History - Allergies and Home Meds Allergies/Adverse Reactions: Allergies No Known Allergies Allergy (Verified 01/11/20 02:57) Primary Care Physician: Saurabh Hernandez Chi, MD [Primary Care Provider] - Prior records reviewed: Yes Surgical History: - - Lumbar laminectomy and fusion x 2, LLE surgery for clot retrieval with follow-up I&D x2 for infection, recent right great toe surgery as well as follow-up balloon angioplasties per vascular surgery during recent admission. Smoking Status: Light Smoker (<10/day) - Family History Paternal Family History: Reports: Diabetes Maternal Family History: Reports: Diabetes, Heart Disease, Hypertension, - - History of brain aneurysms. Review of Systems General: Denies: Chills, Fever Eyes: Denies: Visual changes - bilaterally ENT: Denies: Bilateral ear pain Cardiovascular: Denies: Chest pain Respiratory: Denies: Dyspnea, Cough Gastrointestinal: Denies: Abdominal pain, Nausea, Vomiting, Diarrhea Genitourinary: Denies: Dysuria Musculoskeletal: Reports: Back pain Skin: Denies: Rash Neurological: Reports: Parasthesia Hematologic: Denies: Easy bruising, Easy bleeding Allergy: Denies: Uticaria Physical Exam Vital Signs/Narrative: Vital Signs Temp Pulse Resp BP Pulse Ox 01/11/20 02:55 97.7 F L 97 18 187/96 H 99 Inital Vital Signs reviewed: Yes General: Well nourished, Well developed Head: Normocephalic ENT: Moist mucous membranes Neck: Supple Cardiovascular: Regular rate, Regular rhythm Respiratory: No distress, CTA bilaterally Abdomen: Soft, Nontender Back: - - Right low lumbar paraspinal tenderness with tenderness over the sciatic notch. Extremities: Nontender, No edema Skin: Normal color, No rash Neurological: Alert, Oriented x3, Normal Strength, - - Strong distal pulses. Psychological: Normal affect Diagnostic/Tx/Re-eval - Medical Decision Making Patient is diabetic and is on Coumadin. I do not think he should be taking anti-inflammatories. He will be given a prescription for [place] along with a short burst of steroids. He will continue his Neurontin. ED Disposition - Plan for ED Patient: Disposition: Home or Assisted Living Diagnosis: Sciatica Instructions: Understanding Sciatica Prescriptions: Prednisone [Deltasone] 40 mg PO DAILY #8 tablet Hydrocodone Bitart/Apap 5-325 [[place] 5MG-325MG] 1 tablet PO Q6H PRN PRN 3 Days #10 tablet PRN Reason: Pain Referrals: Saurabh Hernandez Chi, MD [Primary Care Provider] - 1 Week
[2020-01-11] MEDS: HYDROcodone Bitartrate/Apap 5/325 Tablet PO (03:21)
[2020-01-11] MEDS: predniSONE 20 MG Tablet 60 MG PO (03:21)
[2020-01-11 03:34] VITALS: BP 166/78; PULSE 78; RESP 18; O2SAT 98
--- NOTE | 2020-01-11 18:05 | ED.RN ---
BROUGHT TO ER BY FAMILY MEMBER TO [employer] THAT WERE LEFT HERE. VERIFIED IDENTITY WITH DRIVERS LICENSE AND NAME/ BY THIS RN AND WITH MAGUI BROWN RN.
== END 2020-01-11 03:35 | disposition home or self-care (01) ==
PROVIDERS: Emergency Provider Emergency Medicine; PCP Family Medicine Geriatric Medicine
DX: M54.31 Sciatica, right side (principal); F17.200 Nicotine dependence, unspecified, uncomplicated; E11.51 Type 2 diabetes mellitus with diabetic peripheral angiopathy without gangrene; E78.5 Hyperlipidemia, unspecified; E11.42 Type 2 diabetes mellitus with diabetic polyneuropathy; K21.9 Gastro-esophageal reflux disease without esophagitis; Z79.01 Long term (current) use of 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s; Z79.82 Long term (current) use of aspirin; Z86.718 Personal history of other venous thrombosis and embolism; Z79.4 Long term (current) use of insulin
CPT/HCPCS: 99283

== ENCOUNTER → 2020-01-14 11:09 | Outpatient (CLI) | payer MEDICARE, SELFPAY ==
[2020-01-11 02:55] VITALS: BMI 29.8
--- NOTE | 2020-01-14 11:18 | VDLE_ITS ---
Reason For Study: Edema RIGHT LEFT GSV is normal. GSV is normal. CFV is compressible, spontaneous, phasic, CFV is compressible, spontaneous, phasic, competent and demonstrates normal competent, and demonstrates normal augmentation. augmentation. FV is compressible, spontaneous, phasic, FV is compressible, spontaneous, phasic, competent and demonstrates normal competent and demonstrates normal augmentation. augmentation. POP V is compressible, spontaneous, phasic, POP V is compressible, spontaneous, phasic, competent and demonstrates normal competent and demonstrates normal augmentation. augmentation. T/P Trunk is compressible. T/P Trunk is compressible. PTV is compressible. PTV is compressible. RT PerV is compressible. LT PerV is compressible. Procedure Exam performed in department. A preliminary report was called and/or faxed to [facility]. Interpretation Summary Deep veins of the lower extremities are bilaterally patent and compressible segmentally. There is no evidence of deep vein thrombosis on either side. Valvular competence appears intact within the proximal deep venous systems bilaterally. The great saphenous veins appear bilaterally patent and compressible segmentally. Ordering Physician: Saurabh Hernandez Referring Physician: Saurabh Hernandez Chi Performed By: Maricel Delcid RVT
--- NOTE | 2020-01-14 11:45 | RAD_ITS ---
STUDY: X-RAY - PELVIS AND RIGHT HIP REASON FOR EXAM: Male, 69 years old. Lower back pain w/radiation down rt leg, pain increasing TECHNIQUE: 4 views of the pelvis and hip. COMPARISON: None. FINDINGS: There is a non-specific bowel gas pattern. Normal visualized soft tissue structures. There is diffuse demineralization of the osseous structures. There is narrowing with cortical sclerosis and osteophyte formation of the sacroiliac joint consistent with degenerative osteoarthritic changes. Normal bilateral superior and inferior pubic rami. Normal pubic symphysis. Normal bilateral ischial tuberosities. Normal visualized femoral head. Normal acetabulum. There is moderate articular joint space narrowing of the hip. Similar degenerative arthritic changes noted in the left hip. RAD/HIP, UNI W/ Pelvis 2-3 Views IMPRESSION: Age consistent bilateral hip and SI joint arthrosis, no demonstrated fracture or suspicious osseous lesion Electronically Signed: Darryn Kaye MD at 19:52 EDT , Service support ,
--- NOTE | 2020-01-14 11:50 | RAD_ITS ---
STUDY: X-RAY - LUMBAR SPINE REASON FOR EXAM: Male, 69 years old. Lower back pain w/radiation down rt leg, pain increasing TECHNIQUE: 3 view(s) of the lumbar spine were obtained. COMPARISON: 09/01/2016 FINDINGS: Normal lumbar lordosis. There is no substantial scoliosis. There is a normal alignment of the vertebrae. There is severe multilevel endplate spondylosis of the lumbar vertebrae. There is severe multi-level degenerative disc disease with multi-level disc space narrowing. Findings most pronounced at L2-L3 and L3-L4. There is no demonstrated fracture. Post surgical changes of posterior decompression at L3, L4, and L5. The soft tissue structures are unremarkable. RAD/Lumbar Spine 2 or 3 Views IMPRESSION: Postoperative and severe multilevel degenerative changes, stable. Electronically Signed: Samuel Christina MD at 23:53 EDT , Service support ,
== END ==
PROVIDERS: PCP Family Medicine Geriatric Medicine; Referring Provider Family Medicine Geriatric Medicine; Visit Provider Family Medicine Geriatric Medicine
DX: R60.0 Localized edema (principal); M86.9 Osteomyelitis, unspecified; E11.628 Type 2 diabetes mellitus with other skin complications; M25.559 Pain in unspecified hip; R60.9 Edema, unspecified
CPT/HCPCS: 72100; 73502; 93970

== ENCOUNTER → 2020-01-25 17:40 | Outpatient (CLI) | payer MEDICARE, SELFPAY ==
[2020-01-11 02:55] VITALS: BMI 29.8
--- NOTE | 2020-01-25 18:50 | RAD_ITS ---
STUDY: X-RAY - RIGHT ANKLE REASON FOR EXAM: Male, 69 years old. RIGHT ANKLE PAIN, PATIENT COMPLAINT MUSCULAR PAIN AND BUMP TECHNIQUE: 3 view(s) of the ankle. COMPARISON: None. FINDINGS: Normal visualized distal tibia and fibula. Normal medial and lateral malleoli. Normal tibiotalar articulation and ankle mortise. Normal visualized talus and calcaneus. Small plantar posterior calcaneal enthesophytes. The visualized subtalar, talonavicular, calcaneocuboid and tarsal articulations are normal. The soft tissue structures are unremarkable. RAD/Ankle min 3 Views IMPRESSION: Normal x-ray examination of the ankle. Electronically Signed: Manoj Dorantes MD at 8:30 EDT Tel , Service support ,
== END ==
PROVIDERS: PCP Family Medicine Geriatric Medicine; Visit Provider Anesthesiology
DX: M25.571 Pain in right ankle and joints of right foot (principal); M86.9 Osteomyelitis, unspecified; E11.628 Type 2 diabetes mellitus with other skin complications
CPT/HCPCS: 73610

== ENCOUNTER → 2020-02-08 12:37 | Outpatient (CLI) | payer MEDICARE, SELFPAY ==
[2020-01-11 02:55] VITALS: BMI 29.8
--- NOTE | 2020-02-08 12:40 | ADUL_ITS ---
Reason For Study: Atherosclerosis Right Velocities Ext. Iliac Artery, dist = 57.8 cm./sec. Common Femoral Artery, mid = 118 cm./sec. Supf Femoral Artery, prox = 144 cm./sec. Supf Femoral Artery, mid = 69.5 cm./sec. Supf Femoral Artery, dist. = 139.6 cm./sec. Profunda Femoral Artery = 123.4 cm./sec. Popliteal Artery, prox. = 104.5 cm./sec. Popliteal Artery, mid = 91.3 cm./sec. Popliteal Artery, dist = 86.9 cm./sec. Peroneal Artery, prox = 82 cm./sec. Peroneal Artery, mid = 74.3 cm./sec. Peroneal Artery,dist = 55.6 cm./sec. Ant. Tibial Artery, prox = 22.5 cm./sec. Ant. Tibial Artery, mid = 22.5 cm./sec. Unable to demonstrate flow in the right [employer] and distal MAGNUS. Procedure Exam performed in department. Interpretation Summary Right triphasic flow through popliteal with no stenosis. Peroneal main runoff wiht occlussions in posterior and anterior tibial arteries. Ordering Physician: Gamal Shah Referring Physician: Saurabh Hernandez Chi Performed By: Maricel Delcid RVT
--- NOTE | 2020-02-08 12:40 | ART_ITS ---
Reason For Study: Atherosclerosis Procedure A bilateral lower extremity continuous wave Doppler with analog waveform analysis and ankle brachial indexes. Left Segmental Pressures Left brachial= 137mmHg. Left posterior tibial artery = 160mmHg. Left dorsalis pedis artery = 155mmHg. Left digit = 82 mmHg. The left dorsalis pedis waveforms are biphasic. The left posterior tibial artery waveforms are triphasic. Right Segmental Pressures Right brachial= 131mmHg. Right posterior tibial artery = 120mmHg. Right dorsalis pedis artery = 106mmHg. Right digit = 65 mmHg. The right dorsalis pedis waveforms are biphasic. The right posterior tibial artery waveforms are monophasic. Indices The right ankle brachial index by the dorsalis pedis is 0.77. The right ankle brachial index by the posterior tibial artery is 0.88. The right digital-brachial index is 0.47. The left ankle brachial index by the dorsalis pedis is 1.13. The left ankle brachial index by the posterior tibial artery is 1.17. The left digital-brachial index is 0.60. Interpretation Summary Right leg with biphasic flow and HERNESTO 0.88. Left wiht triphasic flow andABI 1.17. Ordering Physician: Gamal Shah Referring Physician: Saurabh Hernandez Chi Performed By: Maricel Delcid RVT
== END ==
PROVIDERS: PCP Family Medicine Geriatric Medicine; Referring Provider Surgery Vascular Surgery; Visit Provider Surgery Vascular Surgery
DX: I70.235 Atherosclerosis of native arteries of right leg with ulceration of other part of foot (principal); M86.9 Osteomyelitis, unspecified; E11.628 Type 2 diabetes mellitus with other skin complications
CPT/HCPCS: 93922; 93926

== ENCOUNTER → 2020-02-18 14:34 | Outpatient (CLI) | payer MEDICARE, SELFPAY ==
[2020-02-18 16:10] LABS: Absolute Lymphocyte Count 1.86 X10^3/uL (0.83-4.51); Absolute Neutrophil Count 4.8 X10^3/uL (2.0-7.7); Basophil# 0.03 X10^3/uL; Basophil% 0.4 % (0-1); Eosinophil# 0.05 X10^3/uL; Eosinophils% 0.7 % (0-5); Hematocrit 41.6 % (40-54); Hemoglobin 13.1 g/dL (13.0-16.5); Lymphocyte # 1.86 X10^3/ul (4.0); Lymphocyte % 25.4 % (19-41); Mean Corp Hgb Conc 31.5 g/dL (32-36); Mean Corpuscular Hgb 28.2 pg (27.0-32.0); Mean Corpuscular Volume 89.5 fL (80-94); Mean Platelet Vol. 10.6 fl (6.2-12.0); Monocyte# 0.54 X10^3/uL; Monocyte% 7.4 % (0-10); NRBC Flagged by Analyzer 0 % (0-5); Neutrophil # 4.81 X10^3/uL (2.7-7.7); Neutrophil % 65.7 % (47-70); Platelet Count 261 K/mm3 (150-450); RBC Distribution Width CV 13.9 % (11.6-14.6); RBC Distribution Width SD 45.1 fl (35.1-43.9); Red Blood Count 4.65 M/mm3 (4.6-6.2); White Blood Count 7.3 K/mm3 (4.4-11.0)
[2020-02-18 16:21] LABS: Vitamin D,25 Hydroxy 17.2 ng/mL
[2020-02-18 16:27] LABS: ALB/GLOB Ratio 0.9 RATIO (0.9-2.4); AST(SGOT) 10 U/L (15-37); Alanine Aminotransfer ALT/SGPT 24 U/L (16-61); Albumin, Serum 3.4 g/dL (3.2-5.0); Alkaline Phosphatase 131 U/L (45-117); Anion Gap 8 (5-15); BUN 10 mg/dL (7-18); BUN/Creat Ratio 9.3 RATIO (10-20); Calcium,Total 8.8 mg/dL (8.5-10.1); Chloride 106 mmol/L (98-107); Cholesterol 245 mg/dL (200); Creatinine, Serum 1.07 mg/dL (0.70-1.30); EST Glomerular Filtration Rate 73 mL/min (>60); Est Glom Filt Rate - Afr Amer 89 mL/min (>60); Globulin 3.7 g/dL (2.2-4.2); High Density Lipoprotein 36 mg/dL; Potassium 3.9 mmol/L (3.5-5.1); Protein, Total 7.1 g/dL (6.4-8.2); Sodium Level 138 mmol/L (136-145); Thyroid Stim Hormone (TSH) 0.55 uIU/mL (0.358-3.74); Triglycerides 453 mg/dL
[2020-02-18 16:33] LABS: Glucose 534 mg/dL (74-106)
== END ==
PROVIDERS: PCP Family Medicine Geriatric Medicine; Visit Provider Family Medicine Geriatric Medicine
DX: E11.9 Type 2 diabetes mellitus without complications (principal); E55.9 Vitamin D deficiency, unspecified; E78.5 Hyperlipidemia, unspecified; I10 Essential (primary) hypertension
CPT/HCPCS: 36415; 80053; 80061; 82306; 84403; 84443; 85025

== ENCOUNTER 2020-02-25 18:02 | Inpatient (IN) | payer MEDICARE, SELFPAY ==
[2020-02-25] VITALS (17 sets, daily range): BP systolic 96–130; BP diastolic 68–91; PULSE 104–145; RESP 12–140; TEMP 36.6–37.3; O2SAT 96–100; BMI 32.8; BMI 29.9
--- NOTE | 2020-02-25 18:15 | RAD_ITS ---
STUDY: X-RAY CHEST REASON FOR EXAM: Male, 69 years old. Diaphoretic, chest pain TECHNIQUE: 2 AP portable views COMPARISON: 09/19/2019 FINDINGS: EKG leads overlie the chest There are interstitial fibrotic changes of the lungs. There is no demonstrated pleural abnormality. Normal size heart. Normal mediastinum and thu. Normal visualized pulmonary arteries. Normal visualized aortic arch and descending thoracic aorta. There are diffuse degenerative changes of the visualized thoracic spine. There is degenerative osteoarthritis of the bilateral shoulders. There is no demonstrated abnormality of the visualized soft tissue structures of the upper abdomen. RAD/Chest 1 View (Portable) IMPRESSION: Degenerative changes, as described above. No demonstrated acute cardiopulmonary process. Electronically Signed: Darryn Kaye MD at 18:36 EDT , Service support ,
--- NOTE | 2020-02-25 18:15 | EKG12_ITS ---
Test Reason : CP Blood Pressure : / mmHG Vent. Rate : 171 BPM Atrial Rate : 171 BPM P-R Int : 112 ms QRS Dur : 070 ms QT Int : 280 ms P-R-T Axes : -02 020 105 degrees QTc Int : 472 ms Sinus tachycardia Septal infarct , age undetermined Inferior injury pattern Non-specific ST & T wave changes Abnormal ECG Confirmed by WAQAS SUE ([id number]), video news editor STANISLAV OVIEDO ([id number]) on 02/29/2020 10:33:37 AM Referred By: REBEL Confirmed By:WAQAS SUE
--- NOTE | 2020-02-25 18:21 | EKG12_ITS ---
Test Reason : DYSRHYTHMIA Blood Pressure : / mmHG Vent. Rate : 145 BPM Atrial Rate : 145 BPM P-R Int : 176 ms QRS Dur : 080 ms QT Int : 252 ms P-R-T Axes : 052 034 130 degrees QTc Int : 391 ms Sinus tachycardia Septal infarct , age undetermined Abnormal ECG Confirmed by WAQAS SUE ([id number]), map editor STANISLAV OVIEDO ([id number]) on 02/29/2020 10:32:47 AM Referred By: REBEL Confirmed By:WAQAS SUE
--- NOTE | 2020-02-25 18:22 | CT_ITS ---
STUDY: CTA CHEST REASON FOR EXAM: Male, 69 years old. Substernal chest pain, diaphoretic RADIATION DOSAGE (If Supplied By Facility): CTDIvol = ( 18.43 ) mGy, DLP = ( 561.18 ) mGycm TECHNIQUE: The examination was performed with the intravenous administration of 100 CC ISOVUE 370. Post-processing of the angiographic images was performed, with multiplanar reformation and 3D reconstruction. Individualized dose optimization techniques were used for this CT. COMPARISON: Previous plain films FINDINGS: Normal enhancement of the main pulmonary artery and right and left pulmonary arteries. Normal enhancement of the bilateral peripheral pulmonary arteries. There is no demonstrated pulmonary embolism. There is atherosclerotic calcification of the aortic arch with tortuosity. There is no demonstrated aortic dissection. Normal heart and pericardium. Scattered subcentimeter axillary and mediastinal adenopathy Normal hilar regions. There is peribronchial thickening. The lungs are well expanded. Chronic interstitial changes in both lung brown with diffuse groundglass opacifications, and small pleural effusions. Normal chest wall structures. There are degenerative changes of thoracic spine. Diffuse fatty infiltration of the liver. CT/CTA Chest W/WO Contrast IMPRESSION: No demonstrated PE, or thoracic aortic aneurysm or dissection Diffuse interstitial changes in both lung brown with groundglass opacifications in both lung brown and small bilateral pleural effusions. Follow-up recommended to assure resolution Scattered subcentimeter mediastinal lymphadenopathy Chronic bronchitis Degenerative bony changes Fatty liver Electronically Signed: Darryn Kaye MD at 19:33 EDT , Service support ,
[2020-02-25 18:30] LABS: Absolute Lymphocyte Count 4.93 X10^3/uL (0.83-4.51); Absolute Neutrophil Count 8.8 X10^3/uL (2.0-7.7); Basophil# 0.04 X10^3/uL; Basophil% 0.3 % (0-1); Eosinophil# 0.08 X10^3/uL; Eosinophils% 0.5 % (0-5); Hematocrit 44.6 % (40-54); Hemoglobin 13.7 g/dL (13.0-16.5); Lymphocyte # 4.93 X10^3/ul (4.0); Lymphocyte % 32.6 % (19-41); Mean Corp Hgb Conc 30.7 g/dL (32-36); Mean Corpuscular Hgb 27.8 pg (27.0-32.0); Mean Corpuscular Volume 90.7 fL (80-94); Mean Platelet Vol. 10.3 fl (6.2-12.0); Monocyte# 1.26 X10^3/uL; Monocyte% 8.3 % (0-10); NRBC Flagged by Analyzer 0 % (0-5); Neutrophil # 8.75 X10^3/uL (2.7-7.7); Neutrophil % 57.8 % (47-70); Platelet Count 363 K/mm3 (150-450); RBC Distribution Width CV 14.1 % (11.6-14.6); RBC Distribution Width SD 47.3 fl (35.1-43.9); Red Blood Count 4.92 M/mm3 (4.6-6.2); White Blood Count 15.1 K/mm3 (4.4-11.0)
[2020-02-25 18:42] LABS: International Normalized Ratio 1.9; Prothrombin Time (Protime)PT. 21.1 SECONDS (11.7-14.9)
[2020-02-25 18:51] LABS: Anion Gap 7 (5-15); BUN 14 mg/dL (7-18); BUN/Creat Ratio 12.3 RATIO (10-20); Chloride 104 mmol/L (98-107); Creatinine, Serum 1.14 mg/dL (0.70-1.30); EST Glomerular Filtration Rate 68 mL/min (>60); Est Glom Filt Rate - Afr Amer 82 mL/min (>60); Estimated Creatinine Clearance 58.79 ml/min; Glucose 553 mg/dL (74-106); Magnesium 2.1 mg/dL (1.6-2.6); Sodium Level 135 mmol/L (136-145)
[2020-02-25 18:54] LABS: BNP,B-Type NATRIURETIC PEPTIDE 1085.5 pg/mL (0-100)
--- NOTE | 2020-02-25 19:12 | ED.DCSUM_ITS ---
History of Present Illness Chief Complaint: Chest Pain Informant: Patient, Family, Staff Assistant Narrative: Patient is a 69-year-old male who presents to the emergency department in respiratory distress. He states that all of a sudden he felt very short of breath. Having some epigastric to substernal mild chest pain associated with this. He denies any recent illnesses including any cough, cold, congestion. No fevers or chills although EMS did document an elevated temp. On arrival to the emerge department he is diaphoretic. He was started on high flow nonrebreathing facemask for hypoxia. His heart rate was in the 170s upon arrival. He denies any history of heart attacks or strokes. He does have a history of DVT and is on Coumadin for this. He is not sure his last INR. He has never had this happen before in the past. Past Medical History - Allergies and Home Meds Allergies/Adverse Reactions: Allergies No Known Allergies Allergy (Verified 01/11/20 02:57) Prior records reviewed: Yes Past Medical History: - - Diabetes, hypertension, hyperlipidemia, DVT on anticoagulation Surgical History: - - Lumbar laminectomy and fusion x 2, LLE surgery for clot retrieval with follow-up I&D x2 for infection, recent right great toe surgery as well as follow-up balloon angioplasties per vascular surgery during recent admission. Smoking Status: Light Smoker (<10/day) - Family History Paternal Family History: Reports: Diabetes Maternal Family History: Reports: Diabetes, Heart Disease, Hypertension, - - History of brain aneurysms. Review of Systems All systems negative except as indicated General: Reports: Sweats. Denies: Chills, Fever Eyes: Denies: Visual changes - bilaterally, Diplopia ENT: Denies: Rhinorrhea, Sore throat Cardiovascular: Reports: Chest pain. Denies: Palpitations Respiratory: Reports: Dyspnea. Denies: Cough Gastrointestinal: Denies: Abdominal pain, Nausea Musculoskeletal: Denies: Back pain, Swelling, Extremity Pain Skin: Denies: Rash, Wounds Neurological: Denies: Headache, Weakness, Numbness Physical Exam Vital Signs/Narrative: Vital Signs Temp Pulse Resp BP Pulse Ox 02/25/20 18:28 99.2 F H 140 H 96/68 99 02/25/20 18:21 99.2 F H 145 H 45 H 117/83 H 99 02/25/20 18:15 99 Inital Vital Signs reviewed: Yes General: Well nourished, Well developed, Acute Distress Head: Normocephalic, Atraumatic Eyes: Perrl, EOMI ENT: Moist mucous membranes, No rhinorrhea Neck: Supple, Nontender Cardiovascular: Regular rhythm, No murmurs, Tachycardia Respiratory: - - Patient having respiratory distress. Increased work of breathing and tachypneic. Crackles bilaterally. Abdomen: Soft, Nontender, Nondistended, Normal bowel sounds Back: Nontender, Normal Inspection Extremities: Nontender. Negative for: Edema, Calf Tenderness Skin: Normal color, No rash Neurological: Alert, Oriented x3, Cranial nerves II-XII grossly intact, Normal Strength, Normal Sensation Diagnostic/Tx/Re-eval - Medical Decision Making Patient presents the emerge department in respiratory distress. His initial EKG showed a rate in the 170s. Due to the crackles and respiratory distress with tachypnea he was started on BiPAP immediately. Repeat EKG obtained after his heart rate started to slow to the 140s. No signs of acute ST elevation VT. Basic lab work sent off. [id number] glucose showed his sugars to be in the 500s. Initial troponin did come back at 16. INR is subtherapeutic at 1.9. BNP is very elevated over 1000. Even has history of DVT and acute onset shortness of breath CTA was obtained which did not reveal any evidence of PE or aortic dissection. There was some groundglass opacities that appears to be pulmonary edema with small pleural effusions. I did contact cardiology who reviewed the EKG. He believes that this is an NSTEMI and to start the patient on Brilinta. Patient's breathing did get better throughout ED stay. His heart rate also came down throughout ED stay. With the vascular congestion we did avoid IV fluids. It appeared to be in sinus tachycardia on each EKG without any obvious ischemia. He was able to be weaned off the BiPAP onto nasal cannula. His ABG was obtained after 20 to 30 minutes on BiPAP which did not reveal any significant abnormality. At this time will bring the patient into the hospital for further evaluation and management. He understands and is agreeable with this plan. - Critical Care Time Critical care time (excluding procedures): 30-74 minutes, Discussing w/Patient &/or Family/[employer] Teacher, Discussing w/Consultants, Arranging Admission or Transfer, Performing Direct Patient Care at Bedside ED Disposition - Plan for ED Patient: Disposition: Acute Care Hospital [facility] Diagnosis: Respiratory distress, Pulmonary edema, Non-STEMI (non-ST elevated myocardial infarction), Hyperglycemia
[2020-02-25 19:16] LABS: Allen Test Positive; Base Excess -4 mmol/L (-2 to +2); Bicarbonate 21.4 mmol/L (22-26); Blood Gas Specimen Type ART; FI02 40; O2 Delivery Device BiPAP; PO2 89 mmHG (75-100); SITE R Radial; SO2 97 % (95-99); Total Carbon Dioxide 23 mmol/L; pCO2 36.7 mmHg (35-45); pH 7.38 (7.35-7.45)
[2020-02-25 19:39] LABS: Lactic Acid 3.8 mmol/L (0.4-1.9)
[2020-02-25 20:01] LABS: Bedside Glucose > 500 mg/dL (70-110)
--- NOTE | 2020-02-25 20:12 | HP.PCM_ITS ---
Problem List (1) Type 2 diabetes mellitus with diabetic polyneuropathy Status: Chronic (2) PVD (peripheral vascular disease) Status: Chronic (3) Lumbar spinal stenosis Status: Chronic Qualifiers: Neurogenic claudication status: unspecified Qualified Code(s): M48.061 - Spinal stenosis, lumbar region without neurogenic claudication (4) DVT (deep venous thrombosis) Status: Chronic (5) Tobacco abuse Status: Chronic (6) GERD (gastroesophageal reflux disease) Status: Chronic Qualifiers: Esophagitis presence: esophagitis presence not specified Qualified Code(s): K21.9 - Gastro-esophageal reflux disease without esophagitis (7) Hypertension Status: Chronic Qualifiers: Hypertension type: essential hypertension Qualified Code(s): I10 - Essential (primary) hypertension (8) COPD (chronic obstructive pulmonary disease) Status: Chronic Qualifiers: Emphysema type: unspecified (9) Peripheral vascular disease Status: Chronic (10) Hyperlipidemia Status: Chronic Qualifiers: Hyperlipidemia type: unspecified Qualified Code(s): E78.5 - Hyperlipidemia, unspecified (11) IDDM (insulin dependent diabetes mellitus) Status: Chronic History of Present Illness Date of Admission: 02/25/20 Chief Complaint: Shortness of breath, chest pain. The patient is a 69 year old M with complicated past medical history as mentioned above presented to the emergency room because of shortness of breath and chest pain. Patient mentioned that he had a chest pain yesterday started after he was lifting heavy object, started having retrosternal chest pain, dull aching pain, not radiating, lasted for several minutes up to 1 hour, associated with mild shortness of breath and later, it resolved. Today afternoon, he took a nap and he woke up short of breath, started suddenly, at rest, associated with mild cough, no sputum production, aggravated by any type of activity, no relieved with rest and no associated other symptoms. Today, he denied any more chest pain. He denied fever chills. He denied sore throat, sinus nasal congestion. In the emergency department, patient was dyspneic, tachypneic, afebrile, initial heart rate was in the 150s, blood pressure was stable, respiratory rate was in the 40s, started on BiPAP. Routine blood work was remarkable for leukocytosis, blood glucose of 553 mg/dL. Lactic acid was 3.8. EKG revealed sinus tachycardia with initial heart rate of 170s, no acute ST elevation. Troponin was 16.1. BNP was 1085. Chest x-ray revealed significant bilateral pulmonary vascular congestion consistent with acute CHF. CTA chest done and showed no PE or dissection, revealed diffuse interstitial groundglass opacification in both lungs as well as small bilateral effusion which is probably due to acute CHF. Patient is being admitted for acute non-STEMI, acute CHF probably systolic, metabolic acidosis and hyperglycemia without DKA. Past Medical History Past Medical History (Chronic Problems): Chronic Problems (Last Updated 02/25/20 @ 20:[address] 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) Gangrene of toe (Chronic) Type 2 diabetes mellitus with diabetic polyneuropathy (Chronic) Ulcer of right foot with fat layer exposed (Chronic) PVD (peripheral vascular disease) (Chronic) Lumbar spinal stenosis (Chronic) Obstructive sleep apnea (Chronic) Scabies infestation (Chronic) DVT (deep venous thrombosis) (Chronic) Tobacco abuse (Chronic) GERD (gastroesophageal reflux disease) (Chronic) Neuropathy (Chronic) Hypertension (Chronic) COPD (chronic obstructive pulmonary disease) (Chronic) Peripheral vascular disease (Chronic) Hyperlipidemia (Chronic) Erectile dysfunction (Chronic) IDDM (insulin dependent diabetes mellitus) (Chronic) Medical History: Medical History (Last Updated 02/25/20 @ 20:[address] Juan Claros MD) Gangrene of toe (Chronic) I96 PVD (peripheral vascular disease) (Chronic) I73.9 Lumbar spinal stenosis (Chronic) M48.06 Obstructive sleep apnea (Chronic) G47.33 Scabies infestation (Chronic) DVT (deep venous thrombosis) (Chronic) Tobacco abuse (Chronic) Z72.0 GERD (gastroesophageal reflux disease) (Chronic) K21.9 Neuropathy (Chronic) G62.9 Hypertension (Chronic) I10 COPD (chronic obstructive pulmonary disease) (Chronic) J44.9 Peripheral vascular disease (Chronic) I73.9 Hyperlipidemia (Chronic) E78.5 Erectile dysfunction (Chronic) N52.9 IDDM (insulin dependent diabetes mellitus) (Chronic) E11.9, Z79.4 Back problem M53.9 Bleeding disorder D69.9 Allergies No Known Allergies Allergy (Verified 01/11/20 02:57) Home Medications: Ambulatory Orders Medication Instructions Recorded Diltiazem 180 mg PO DAILY 09/26/13 Gabapentin [Neurontin] 600 mg PO TID 09/26/13 Zolpidem Tartrate [Ambien] 10 mg PO QHS 11/06/15 Omeprazole [Prilosec] 40 mg PO DAILY 03/13/18 Multivitamin [Daily Multiple 1 ea PO DAILY 07/17/19 Vitamin] Aspirin [Aspirin, Baby] 81 mg PO DAILY@0800 09/11/19 Clopidogrel Bisulfate [Plavix] 75 mg PO DAILY 09/11/19 Meloxicam [Mobic] 15 mg PO DAILY 09/11/19 Potassium Chloride [Klor-Con] 20 meq PO BID 09/11/19 Ranitidine [Zantac] 300 mg PO DAILY 09/11/19 Atorvastatin Calcium [Lipitor] 40 mg PO DAILY #30 tab 09/17/19 Atorvastatin Calcium [Lipitor] 40 mg PO QHS #30 tab 09/17/19 Insulin Aspart [Novolog Flexpen 10 units SUBCUT TIDCM #1 flexpen 09/17/19 ([facility])] Insulin Degludec/Liraglutide 65 units SQ DAILY #1 09/17/19 [Xultophy 100 Unit-3.6MG/ml Pen] Lisinopril [Zestril] 20 mg PO DAILY #30 tab 09/17/19 Warfarin [Coumadin] 4 mg PO DAILY@1700 10/17/19 Prednisone [Deltasone] 40 mg PO DAILY #8 tab 01/11/20 Surgical History: - - Lumbar laminectomy and fusion x 2, LLE surgery for clot retrieval with follow-up I&D x2 for infection, recent right great toe surgery as well as follow-up balloon angioplasties per vascular surgery during recent admission. Psychiatric History: No pertinent psych hx Lives: Spouse/ Significant Other Smoking Status: Light Smoker (<10/day) Tobacco Use: Cigarettes Alcohol: None Drugs: None - *Family History Paternal History Items: Diabetes Maternal History Items: Diabetes, Heart Disease, Hypertension, - - History of brain aneurysms. Review of Systems Constitutional: Reports: Weakness. Denies: Anorexia, Chills, Fever Eyes: Denies: Blurred vision, Double vision, Drainage, Redness HEENT: Denies: Difficulty Hearing, Ear Pain, Eye Pain, Nasal Congestion, Sore Throat Cardiovascular: Reports: Chest Pain, Orthopnea. Denies: Edema, Heaviness, Light Headedness, Palpitations, Syncope Respiratory: Reports: Cough, Shortness of Breath, Shortness of breath at rest. Denies: Sputum production, Wheezing Gastrointestinal: Denies: Abdominal Pain, Constipation, Diarrhea, Nausea, Vomit ing Genitourinary: Denies: Dysuria, Frequency, Hematuria Musculoskeletal: Denies: Arm Pain, Back Pain, Foot Pain Skin: Denies: Dryness, Rash Neurological: Denies: Balance problems, Blurred vision, Double vision, Change in Speech, Slurred speech, Confusion, Headaches, Incoordination Psychiatric: Denies: Anxiety, Depression Endocrine: Denies: Change in Body Habitus, Polydipsia, Polyuria VTE Information - Inpt Only VTE Present on Admission: No VTE Mechan Device Prophylaxis: None VTE Pharm Prophylaxis ordered?: No - Physical Exam Vitals/I&O's: Vital Signs Temp Pulse Resp BP Pulse Ox 99.2 F H 120 H 36 H 130/84 H 98 02/25/20 18:28 02/25/20 20:11 02/25/20 20:11 02/25/20 20:11 02/25/20 19:20 Oxygen Delivery Method Bi-pap Weight: 210 lb Body Mass Index (BMI) 32.8 Finger Stick Blood Glucose 539 General: Alert, Oriented x3, Cooperative, - - Short of breath, dyspneic and tachypneic. On BiPAP. HEENT: Atraumatic, PERRLA, EOMI, Normocephalic Oral: Moist Mucosa, No Gingival or Mucosal Lesions/ Ulcerations Neck: Supple, No JVD, Negative Carotid Bruits, Trachea Midline, Thyroid Normal Size and Texture Lungs: Diminished, Rales, Rhonchi, Short of Breath, Tachypneic, - - Decreased br eath sounds bilateral, bilateral rhonchi. Cardiovascular: Regular rate, Regular Rhythm, Normal S1, Normal S2, PMI Normal, Tachycardic Abdomen: Bowel Sounds Present, Soft, Non Tender, Non-Distended, No Hepato- splenomegaly, Obese Extremities: No clubbing, No cyanosis, Edema - Trace edema. Skin: No rashes, Ulcer/ Wound Lymphatic: No Cervical, Supraclavicular, or Inguinal Adenopathy Neurological: Cranial nerves II-XII grossly intact, Motor Exam 5/5 strength throughout Psych/Mental Status: Normal Affect, Appropriate, Alert and oriented to time, place, person, mood and affect Laboratory Results 02/25/20 18:18: POC Glucose > 500 H* 02/25/20 18:20: WBC 15.1 H, RBC 4.92, Hgb 13.7, Hct 44.6, MCV 90.7, MCH 27.8, MCHC 30.7 L, RDW Std Deviation 47.3 H, RDW Coeff of Estrada 14.1, Plt Count 363, MPV 10.3, Immature Gran % (Auto) 0.500, Neut % (Auto) 57.8, Lymph % (Auto) 32.6, [place]ane % (Auto) 8.3, Eos % (Auto) 0.5, Baso % (Auto) 0.3, Absolute Neuts (auto) 8.8 H, Absolute Lymphs (auto) 4.93 H, Nucleated RBC % 0 02/25/20 18:20: PT 21.1 H, INR 1.9 02/25/20 18:20: Sodium 135 L, Potassium 4.0, Chloride 104, Carbon Dioxide 24.0, Anion Gap 7, BUN 14, Creatinine 1.14, Estim Creat Clear Calc 58.79, Est GFR (MDRD) Af Amer 82, Est GFR (MDRD) Non-Af 68, BUN/Creatinine Ratio 12.3, Glucose 553 H*, Calcium 9.0, Magnesium 2.1, Troponin I 16.100 H* 02/25/20 18:20: B-Natriuretic Peptide 1085.5 H 02/25/20 18:20: Acetone Level NEGATIVE 02/25/20 18:20: Lactic Acid 3.8 H* 02/25/20 18:36: COVID-19 ([facility]) Pending 02/25/20 19:08: Specimen Type ART, Sample Site R Radial, pH 7.38, Bicarbonate Actual 21.4 L, Total CO2 23, Base Excess -4 L, O2 Saturation 97, O2 % 40, ABG pCO2 36.7, ABG pO2 89, Caesar Test Positive, O2 Delivery Device BiPAP Clinical Impression(s) from Imaging Studies Chest X-Ray 02/25/20 18:15 IMPRESSION: Degenerative changes, as described above. No demonstrated acute cardiopulmonary process. Electronically Signed: Darryn Kaye MD at 18:36 EDT , Service support , Chest CTA 02/25/20 18:22 IMPRESSION: No demonstrated PE, or thoracic aortic aneurysm or dissection Diffuse interstitial changes in both lung brown with groundglass opacifications in both lung brown and small bilateral pleural effusions. Follow-up recommended to assure resolution Scattered subcentimeter mediastinal lymphadenopathy Chronic bronchitis Degenerative bony changes Fatty liver Electronically Signed: Darryn Kaye MD at 19:33 EDT , Service support , Assessment/Plan This is a 69 years old male patient presented to the emergency room because of chest pain or shortness of breath, found to have acute non-ST elevation NM, acute CHF causing acute hypoxic respiratory sufficiency, lactic acidosis and hyperglycemia without evidence of DKA. #1 acute non-ST elevation NM: EKG reviewed, revealed sinus tachycardia, no acute ST relation. Troponin 16.1. Chest x-ray as well as CTA chest reviewed. Patient received 1 dose of Brilinta and aspirin in the ED. Plan: Admit to ICU, critical care monitoring, complete bedrest, cardiac monitoring, serial cardiac enzymes, repeat EKG tomorrow morning, 2D echocardiogram, cardiology consult, hold Coumadin, consult critical care, repeat CBC and BMP tomorrow morning, repeat INR tomorrow morning, continue statins, lisinopril, PT OT evaluation and treatment when appropriate. #2 acute congestive heart failure: Probably systolic. Chest x-ray and CT chest reviewed. BNP is elevated. Plan: Fluid restriction, 2D echocardiogram, IV Lasix, continue lisinopril, start beta-blockers if blood pressure tolerates. #3 lactic acidosis: This is probably due to acute hypoxemia. I doubt infection, sepsis or severe sepsis. Chest x-ray showed pulmonary vascular congestion. COVID-19 is pending. At this time, no indication for IV antibiotics. Plan: Blood culture, urine culture, urinalysis. #4 acute hypoxic respiratory sufficiency: Secondary to #1 #2. Patient is on BiPAP. ABG revealed pH of 7.38, PCO2 of 36 and PO2 of 89. Plan for IV diuresis, continue BiPAP for now, critical care consult. #5 hyperglycemia without evidence of DKA: Admission blood glucose was 553, bicarb is 24 and anion gap is 7. No evidence of DKA. Plan: Start IV insulin drip per protocol, replace electrolytes as appropriate. #6 type 2 diabetes mellitus: Uncontrolled. Hemoglobin A1c was 13.3% on June,. Blood sugar is very high, no DKA. Plan as above. #7 COPD: He is on BiPAP, ABG reviewed. Plan for DuoNeb every 6 hours, continue BiPAP. #8 peripheral vascular disease: Status post right lower extremity balloon angioplasty. Patient was on aspirin, statin and Plavix. He received 1 dose of Brilinta and aspirin in the ED. For now, will hold Plavix, continue statins. #9 hypertension: Blood pressure is on the low side but stable. Plan for IV Lasix for diuresis, lisinopril if blood pressure tolerates. 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 #11 history of DVT: Currently on Coumadin, INR is 1.9. Coumadin will be held, repeat INR tomorrow morning. #12 hyperlipidemia: Continue statins. #13 CODE STATUS: Full code, discussed with the patient. #14 DVT prophylaxis: INR is 1.9. This note was generated with [employer] dictation software. It may contain incorrect words, spelling, and punctuation that were not noted in checking the note before signing. Inpatient E&M: 64288 Init Hosp L3
[2020-02-25] MEDS: Aspirin 81 MG TAB.CHEW 324 MG PO (20:41)
[2020-02-25] MEDS: TICAGRELOR 90 MG TABLET 180 MG PO (20:41)
--- NOTE | 2020-02-25 20:55 | CON.PCM_ITS ---
Reason for Consult Date of Consultation: 02/25/20 Reason for Consultation: Shortness of breath History of Present Illness: The patient is a 69 year old M who presented to the emergency room because of shortness of breath and chest pain. Patient mentioned that he had a chest pain yesterday started after he was lifting heavy object, started having retrosternal chest pain, dull aching pain, not radiating, lasted for several minutes up to 1 hour, associated with mild shortness of breath and later, it resolved. This afternoon, he took a nap and he woke up short of breath, started suddenly, at rest, associated with mild cough, no sputum production, aggravated by any type of activity, no relieved with rest and no associated other symptoms. Today, he denied any more chest pain. He denied fever, chills, or sore throat or nasal congestion. He has not been in contact with anyone that he knows who has COVID. In the emergency department, patient was dyspneic, tachypneic, afebrile, initial heart rate was in the 150s, blood pressure was stable, respiratory rate was in the 40s, started on BiPAP. Routine blood work was remarkable for leukocytosis, blood glucose of 553 mg/dL. Lactic acid was 3.8. EKG revealed sinus tachycardia with initial heart rate of 170s, no acute ST elevation. Troponin was 16.1. BNP was 1085. Chest x-ray revealed significant bilateral pulmonary vascular congestion consistent with acute CHF. The ER physician initially thought this was compatible with a pulmonary embolus and therefore CTA chest done and showed no PE or dissection, but revealed diffuse interstitial groundglass opacification in both lungs as well as small bilateral effusion whi ch is probably due to acute CHF. Patient is being admitted for acute non-STEMI, acute CHF probably systolic, metabolic acidosis and hyperglycemia without DKA. Cardiology was consulted for further evaluation and management. [] Past Medical History Allergies/Adverse Reactions: Allergies No Known Allergies Allergy (Verified 01/11/20 02:57) Home Medications: Ambulatory Orders Medication Instructions Recorded Zolpidem Tartrate [Ambien] 10 mg PO QHS 11/06/15 Omeprazole [Prilosec] 40 mg PO DAILY 03/13/18 Multivitamin [Daily Multiple 1 ea PO DAILY 07/17/19 Vitamin] Aspirin [Aspirin, Baby] 81 mg PO DAILY@0800 09/11/19 Clopidogrel Bisulfate [Plavix] 75 mg PO DAILY 09/11/19 Meloxicam [Mobic] 15 mg PO DAILY 09/11/19 Potassium Chloride [Klor-Con] 20 meq PO BID 09/11/19 Ranitidine [Zantac] 300 mg PO DAILY 09/11/19 Warfarin [Coumadin] 4 mg PO DAILY@1700 10/17/19 Atorvastatin Calcium [Lipitor] 40 mg PO QHS 02/25/20 Baclofen [Lioresal] 10 mg PO TID 02/25/20 Insulin Aspart [Novolog Flexpen 33 units SUBCUT TIDCM 02/25/20 ([facility])] Insulin Degludec [Tresiba 100 unit SQ QHS 02/25/20 Flextouch U-200] Lisinopril [Zestril] 20 mg PO DAILY 02/25/20 Rosuvastatin Calcium [Crestor] 40 mg PO QHS 02/25/20 Tramadol HCl [Ultram] 50 mg PO BID 02/25/20 Past Medical History (Chronic Problems): Chronic Problems (Last Updated 02/25/20 @ 20:[address] 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) Gangrene of toe (Chronic) Type 2 diabetes mellitus with diabetic polyneuropathy (Chronic) Ulcer of right foot with fat layer exposed (Chronic) PVD (peripheral vascular disease) (Chronic) Lumbar spinal stenosis (Chronic) Obstructive sleep apnea (Chronic) Scabies infestation (Chronic) DVT (deep venous thrombosis) (Chronic) Tobacco abuse (Chronic) GERD (gastroesophageal reflux disease) (Chronic) Neuropathy (Chronic) Hypertension (Chronic) COPD (chronic obstructive pulmonary disease) (Chronic) Peripheral vascular disease (Chronic) Hyperlipidemia (Chronic) Erectile dysfunction (Chronic) IDDM (insulin dependent diabetes mellitus) (Chronic) Surgical History: - - Lumbar laminectomy and fusion x 2, LLE surgery for clot retrieval with follow-up I&D x2 for infection, recent right great toe surgery as well as follow-up balloon angioplasties per vascular surgery during recent admi ssion. Psychiatric History: No pertinent psych hx - *Family History Paternal History Items: Diabetes Maternal History Items: Diabetes, Heart Disease, Hypertension, - - History of brain aneurysms. Lives: Spouse/ Significant Other Smoking Status: Light Smoker (<10/day) Tobacco Use: Cigarettes Alcohol: None Drugs: None Review of Systems - Review of Systems General: Reports: Fatigue. Denies: Fever, Night Sweats HEENT: Denies: Vision Change Cardiovascular: Reports: Chest Discomfort, Shortness of Breath, Shortness of Breath at Rest, Shortness of Breath with Exertion, Orthopnea. Denies: PND, Peripheral Edema, Palpitations, Lightheadedness, Dizziness, Near Syncope, Syncope Respiratory: Denies: Cough, Sputum Production, Hemoptysis Gastrointestinal: Denies: Hematemesis, Hematochezia, Melena Genitourinary: Denies: Dysuria, Hematuria Muscoloskeletal: Denies: Myalgias Skin: Denies: Rash Psychiatric: Denies: Anxiety Endocrine: Denies: Excessive Sweating Hematologic/ Lymphatic: Denies: Anemia Subjectve: Disheveled middle-aged man in no distress on oxygen Objective: Vital Signs Temp Pulse Resp BP Pulse Ox 98.0 F 126 H 19 H 122/74 H 96 02/25/20 20:42 02/25/20 20:42 02/25/20 20:42 02/25/20 20:42 02/25/20 20:42 Oxygen Flow Rate (L/min) 6 Oxygen Delivery Method Nasal Cannula Weight: 210 lb Body Mass Index (BMI) 32.8 Finger Stick Blood Glucose 539 General: Awake, Alert, Oriented x 3 HEENT: PERRL, EOMI, Sclera Non Icteric Neck: Supple, Good ROM, No Lymph Node Enlargement Lungs: Rales - Tony Bases Cardiovascular: Regular Rhythm, Normal S1, Normal S2, No Murmurs, No Rubs, No Gallops Vascular: No Carotid Bruits, Normal Femoral Pulses, Normal Radial Pulses, Normal Dorsalis Pedal Pulse, Normal Posterior Tibial Pulses Abdomen: Bowel Sounds Present, Soft, Non Tender, No HSM, No Organomegaly Extremities: No Cyanosis, No Clubbing, No edema Musculoskeletal: No Erythema Skin: No Rashes Lymphatic: No Lymph Node Enlargement Neurological: No Focal Motor or Sensory Deficit Psych/Mental Status: Appropriate 02/25/20 18:20: WBC 15.1 H, RBC 4.92, Hgb 13.7, Hct 44.6, MCV 90.7, MCH 27.8, MCHC 30.7 L, Plt Count 363, MPV 10.3, Immature Gran % (Auto) 0.500, Neut % (Auto) 57.8, Lymph % (Auto) 32.6, [place] % (Auto) 8.3, Eos % (Auto) 0.5, Baso % (Auto) 0.3, Absolute Neuts (auto) 8.8 H, Nucleated RBC % 0 02/25/20 18:20: PT 21.1 H, INR 1.9 02/25/20 18:20: Sodium 135 L, Potassium 4.0, Chloride 104, Carbon Dioxide 24.0, Anion Gap 7, BUN 14, Creatinine 1.14, Est GFR (MDRD) Af Amer 82, Est GFR (MDRD) Non-Af 68, BUN/Creatinine Ratio 12.3, Glucose 553 H*, Calcium 9.0, Magnesium 2.1, Troponin I 16.100 H* 02/25/20 18:20: B-Natriuretic Peptide 1085.5 H 02/25/20 18:20: Lactic Acid 3.8 H* 02/25/20 19:08: pH 7.38, Bicarbonate Actual 21.4 L, Base Excess -4 L, O2 Saturation 97, ABG pCO2 36.7, ABG pO2 89, Caesar Test Positive Rhythm: EKG: ECHO: Stress Test: Cardiac Cath: PCI: CT Surgery: Holter monitor: EPS: PPM: CXR: Chest CT Scan: Assessment/Plan This is a 69 years old male patient presented to the emergency room because of chest pain or shortness of breath, found to have acute non-ST elevation HI, acute CHF causing acute hypoxic respiratory sufficiency, lactic acidosis and hyperglycemia without evidence of DKA. #1 acute non-ST elevation HI: * It appears the patient presented with a recent non-ST elevation myocardial infarction * Will start beta-justine as blood pressure tolerates as well as SELMA inhibitor * Aspirin * Continue clopidogrel. The patient was administered Brilinta in the ER * Will obtain echocardiogram to assess the ventricular function * Depending on clinical course as well as improvement in his hyperglycemia he will be considered for a left heart catheterization. * #2 Acute congestive heart failure: Probably systolic. * The chest x-ray as well as the natruretic peptide and the clinical signs are suggestive of the above. * Will institute intravenous Lasix * Obtain echocardiogram to assess low ventricular function * #3 lactic acidosis: This is probably due to acute hypoxemia. I doubt infection, sepsis or severe sepsis. Chest x-ray showed pulmonary vascular congestion. COVID-19 is pending. At this time, no indication for IV antibiotics. Plan: Blood culture, urine culture, urinalysis. #4 acute hypoxic respiratory sufficiency: Secondary to #1 #2. Patient is on BiPAP. ABG revealed pH of 7.38, PCO2 of 36 and PO2 of 89. Plan for IV diuresis, continue BiPAP for now, critical care consult. #5 hyperglycemia without evidence of DKA: Admission blood glucose was 553, bicarb is 24 and anion gap is 7. No evidence of DKA. Treatment plan as per hospitalist #6 type 2 diabetes mellitus: Uncontrolled. Hemoglobin A1c was 13.3% on June,. Blood sugar is very high, no DKA. Plan as above. #7 COPD: He is on BiPAP, ABG reviewed. Plan for DuoNeb every 6 hours, continue BiPAP. #8 peripheral vascular disease: * Status post right lower extremity balloon angioplasty. Patient was on aspirin, statin and Plavix. He received 1 dose of Brilinta and aspirin in the ED. * Will continue with Plavix * Continue statins #9 hypertension: Blood pressure is on the low side but stable. Plan for IV Lasix for diuresis, lisinopril if blood pressure tolerates. #10 history of DVT: Currently on Coumadin, INR is 1.9. Coumadin will be held, repeat INR tomorrow morning. #11 hyperlipidemia: Continue statins. Thank you for allowing me to participate in the care of your patient. Please don't hesitate to call if any issues arise.
--- NOTE | 2020-02-25 21:08 | ECHOCS_ITS ---
Reason For Study: S/P IA Procedure This was a 2D Doppler, Color Flow transthoracic echocardiogram. The study was technically difficult. Contrast injection was performed. Exam performed in department. Left Ventricle Normal LV size. Mild concentric left ventricular hypertrophy. The estimated ejection fraction is 45 %. Stage 2 diastolic dysfunction. There is mild global hypokinesis of the left ventricle. Right Ventricle Normal RV size. Normal systolic function. Atria Normal left atrium. Normal right atrium. Mitral Valve Bileaflet diffuse mitral valve thickening. Mild (1+) eccentric mitral valve insufficiency. Tricuspid Valve Normal tricuspid valve. Mild to moderate (1-2+) tricuspid valve insufficiency. Pulmonary artery systolic pressure is 45 mmHg. Mild pulmonary hypertension. Aortic Valve Trisinus/trileaflet aortic valve. Peak aortic valve gradient 28 mmHg. Mean aortic valve gradient 17 mmHg. Mild to moderate aortic stenosis. Calculated aortic valve area (continuity equation) is 1.0 cm2. Great Vessels Normal aortic root. The pulmonary artery is normal size. Normal inferior vena cava. Pericardium/Pleural No pericardial effusion. Medication Diluted definity 3.5ml given slow IV push to enhance endocardial definition. MMode/2D Measurements & Calculations LVIDd: 5.1 cm IVSd: 1.3 cm LVOT diam: 2.0 cm LVIDs: 4.3 cm LVPWd: 1.3 cm LVOT area: 3.1 cm2 RVDd: 4.2 cm FS: 17.0 % Ao root diam: 3.2 cm LAV(MOD-bp): 65.1 ml LVAd ap4: 35.7 cm2 LAV(MOD-bp) Indexed: 31.6 ml/m2 EDV(MOD-sp4): 114.7 ml LAV(MOD-sp2): 63.8 ml EDV(sp4-el): 120.6 ml LAV(MOD-sp4): 61.2 ml LVAs ap4: 27.9 cm2 ESV(MOD-sp4): 73.1 ml ESV(sp4-el): 77.7 ml EF(MOD-sp4): 36.3 % EF(sp4-el): 35.6 % SV(MOD-sp4): 41.6 ml SV(sp4-el): 42.9 ml LA A4 area: 20.9 cm2 LA dimension(2D): 4.0 cm RA A4 area: 14.3 cm2 Time Measurements MV dec time: 0.11 sec Doppler Measurements & Calculations MV E max brian: 98.1 cm/sec Lat Peak E' Brian: 5.9 cm/sec Med Peak E' Brian: 5.9 cm/sec MV A max brian: 58.5 cm/sec E/E' lat: 16.7 E/E' med: 16.7 MV E/A: 1.7 MV V2 max: 112.7 cm/sec Ao V2 max: 263.2 cm/sec LV V1 max: 79.6 cm/sec MV max P.1 mmHg Ao max P.8 mmHg LV V1 max P.5 mmHg MV V2 mean: 71.3 cm/sec Ao V2 mean: 199.1 cm/sec LV V1 mean P.3 mmHg MV mean P.3 mmHg Ao mean P.1 mmHg LV V1 mean: 54.6 cm/sec MV V2 VTI: 18.3 cm Ao V2 VTI: 45.5 cm LV V1 VTI: 14.4 cm MVA(VTI): 2.5 cm2 HAWK(I,D): 0.99 cm2 HAWK(V,D): 0.94 cm2 SV(LVOT): 44.9 ml TR max brian: 314.2 cm/sec MV P1/2t-pr_phl: 41.7 msec TR max P.5 mmHg Interpretation Summary Normal LV size. Mild concentric left ventricular hypertrophy. The estimated ejection fraction is 45 %. Stage 2 diastolic dysfunction. Mild to moderate aortic stenosis. Calculated aortic valve area (continuity equation) is 1.0 cm2. Pulmonary artery systolic pressure is 45 mmHg. Mild pulmonary hypertension. Ordering Physician: Justin Morton Referring Physician: ALICIA BROWN Performed By: Susie Nieves, RDCS, RVT
[2020-02-25] MEDS: Furosemide 40 MG/4 ML Vial IV (22:06)
[2020-02-25] MEDS: 0.9% Saline Lock 10 ML Syringe IV (22:06)
[2020-02-25 22:15] LABS: Bedside Glucose 429 mg/dL (70-110)
[2020-02-25 22:25] LABS: Reflex Lactate? Y
[2020-02-25 22:55] LABS: Lactic Acid 1.8 mmol/L (0.4-1.9)
[2020-02-25 23:01] LABS: Anion Gap 7 (5-15); BUN 14 mg/dL (7-18); BUN/Creat Ratio 15.2 RATIO (10-20); Calcium,Total 8.9 mg/dL (8.5-10.1); Chloride 107 mmol/L (98-107); Creatinine, Serum 0.92 mg/dL (0.70-1.30); EST Glomerular Filtration Rate 87 mL/min (>60); Est Glom Filt Rate - Afr Amer 105 mL/min (>60); Estimated Creatinine Clearance 82.98 ml/min; Glucose 402 mg/dL (74-106); Potassium 4.3 mmol/L (3.5-5.1); Sodium Level 138 mmol/L (136-145)
[2020-02-26] VITALS (28 sets, daily range): BP systolic 100–121; BP diastolic 57–88; PULSE 87–105; RESP 12–39; TEMP 36.2–36.9; O2SAT 96–100
[2020-02-26 00:37] LABS: Bacteria 0 SEEN /hpf (None Seen); Mucous, Urine 0 SEEN /hpf (<or=2+); Red Blood Cells-Urine 0 SEEN /hpf (0-5); Squamous Epithelial Cells - UA 0 SEEN /hpf (0-5); White Blood Cells 0 SEEN /hpf (0-5)
[2020-02-26 00:38] LABS: Color, Urine Yellow (Yellow); Glucose, Dipstick 1000 mg/dl (Normal); Ketone-Dipstick Negative (Negative); Leukocyte Esterase-Dipstick Negative /ul (Negative); Nitrite-Dipstick Negative (Negative); Occult Blood-Urine Negative /ul (Negative); Protein-Dipstick 30 mg/dl (Negative); Urine Bilirubin Dipstick Negative (Negative); Urine Clarity Clear (Clear); Urine Urobilinogen Normal (Normal)
[2020-02-26] MEDS: Ipratropium/Albuterol Sulfate 3 ML AMPUL.NEB INHALATION (01:04)
[2020-02-26 03:11] LABS: Bedside Glucose 358 mg/dL (70-110)
[2020-02-26 05:10] LABS: Absolute Lymphocyte Count 1.56 X10^3/uL (0.83-4.51); Absolute Neutrophil Count 5.5 X10^3/uL (2.0-7.7); Basophil# 0.03 X10^3/uL; Basophil% 0.4 % (0-1); Eosinophil# 0.02 X10^3/uL; Eosinophils% 0.2 % (0-5); Hematocrit 37.5 % (40-54); Lymphocyte # 1.56 X10^3/ul (4.0); Lymphocyte % 19.3 % (19-41); Mean Corpuscular Volume 87.6 fL (80-94); Mean Platelet Vol. 10.1 fl (6.2-12.0); Monocyte# 0.92 X10^3/uL; Monocyte% 11.4 % (0-10); NRBC Flagged by Analyzer 0 % (0-5); Neutrophil % 68.2 % (47-70); Platelet Count 245 K/mm3 (150-450); RBC Distribution Width CV 14.1 % (11.6-14.6); RBC Distribution Width SD 45.1 fl (35.1-43.9); Red Blood Count 4.28 M/mm3 (4.6-6.2); White Blood Count 8.1 K/mm3 (4.4-11.0)
[2020-02-26 05:20] LABS: International Normalized Ratio 1.8; Prothrombin Time (Protime)PT. 20.5 SECONDS (11.7-14.9)
[2020-02-26 05:28] LABS: ALB/GLOB Ratio 0.8 RATIO (0.9-2.4); AST(SGOT) 63 U/L (15-37); Alanine Aminotransfer ALT/SGPT 50 U/L (16-61); Albumin, Serum 2.9 g/dL (3.2-5.0); Alkaline Phosphatase 94 U/L (45-117); Anion Gap 7 (5-15); BUN 12 mg/dL (7-18); BUN/Creat Ratio 15.9 RATIO (10-20); Calcium,Total 8.1 mg/dL (8.5-10.1); Chloride 108 mmol/L (98-107); Creatinine, Serum 0.76 mg/dL (0.70-1.30); EST Glomerular Filtration Rate 109 mL/min (>60); Est Glom Filt Rate - Afr Amer 132 mL/min (>60); Estimated Creatinine Clearance 76.35 ml/min; Globulin 3.7 g/dL (2.2-4.2); Glucose 297 mg/dL (74-106); Potassium 3.8 mmol/L (3.5-5.1); Protein, Total 6.6 g/dL (6.4-8.2); Sodium Level 142 mmol/L (136-145)
[2020-02-26] MEDS: 0.9% Saline Lock 10 ML Syringe IV ×2 (05:42→13:55)
[2020-02-26] MEDS: Furosemide 40 MG/4 ML Vial IV ×2 (05:42→13:55)
[2020-02-26] MEDS: Insulin Lispro 100 UNIT/ML INSULN.PEN SC ×4 (05:42→22:11)
--- NOTE | 2020-02-26 06:18 | CON.PCM_ITS ---
Reason for Consult Date of Consultation: 02/26/20 Reason for Consultation: DKA, acute CHF, non-STEMI History of Present Illness: The patient is a 69-year-old male, with a history as outlined below, who presented to the emergency department on February 24 with chest pain and shortness of breath. The patient reported that upon awakening from taking a nap yesterday that he felt acutely short of breath. The patient denied any known cardiac issues. He has been diagnosed with lower extremity DVTs in the past. The patient does have an extensive smoking history and continues to smoke 1 pack of cigarettes per day. He has never been evaluated by a correctional supervisor lieutenant, nor has he ever undergone pulmonary function studies. He does not utilize supplemental oxygen at his baseline. On presentation to the emergency department, the patient was noted to be afebrile and hemodynamically stable. However, he was significantly tachycardic and tachypneic. He was placed immediately on BiPAP. Laboratory evaluation revealed an elevated white blood cell count of 15,000. Coagulation profile revealed an INR of 1.9. Chemistry profile was largely unrevealing, with the exception of an elevated blood glucose level of 553. Lactate was elevated to 3.8. Troponin was increased to 16.1. BNP was elevated to 1085. Urine analysis was unremarkable. Serum acetone level was negative. Coronavirus PCR was negative. CTA chest was obtained and showed no evidence for PE. There was evidence of lower lobe predominant groundglass changes with thickening of the interstitium, peribronchial thickening, right lower lobe lung nodule and mild basilar predominant bronchiectatic changes. The patient was subsequently placed on diuretic therapy and admitted to the medical intensive care unit for further management. 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 toe (Chronic) Type 2 diabetes mellitus with diabetic polyneuropathy (Chronic) Ulcer of right foot with fat layer exposed (Chronic) PVD (peripheral vascular disease) (Chronic) Lumbar spinal stenosis (Chronic) Obstructive sleep apnea (Chronic) Scabies infestation (Chronic) DVT (deep venous thrombosis) (Chronic) Tobacco abuse (Chronic) GERD (gastroesophageal reflux disease) (Chronic) Neuropathy (Chronic) COPD (chronic obstructive pulmonary disease) (Chronic) Peripheral vascular disease (Chronic) Hyperlipidemia (Chronic) Erectile dysfunction (Chronic) IDDM (insulin dependent diabetes mellitus) (Chronic) Medical History: Medical History (Last Updated 02/26/20 @ 19:36 by Che Lee) Dilated cardiomyopathy (Acute) I42.0 Essential (primary) hypertension (Chronic) I10 Nonrheumatic aortic (valve) stenosis (Chronic) I35.0 Respiratory distress (Acute) R06.03 Pulmonary edema (Acute) J81.1 Non-STEMI (non-ST elevated myocardial infarction) (Acute) Onset Date: 02/25/20 I21.4 Hyperglycemia (Acute) R73.9 Diabetic foot infection (Chronic) E11.628, L08.9 Osteomyelitis (Chronic) M86.9 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) L97.514 Type 2 diabetes mellitus with diabetic polyneuropathy (Chronic) E11.42 Gangrene of toe (Chronic) I96 Type 2 diabetes mellitus with diabetic polyneuropathy (Chronic) E11.42 Ulcer of right foot with fat layer exposed (Chronic) L97.512 PVD (peripheral vascular disease) (Chronic) I73.9 Lumbar spinal stenosis (Chronic) M48.06 Obstructive sleep apnea (Chronic) G47.33 Scabies infestation (Chronic) DVT (deep venous thrombosis) (Chronic) Tobacco abuse (Chronic) Z72.0 GERD (gastroesophageal reflux disease) (Chronic) K21.9 Neuropathy (Chronic) G62.9 COPD (chronic obstructive pulmonary disease) (Chronic) J44.9 Peripheral vascular disease (Chronic) I73.9 Hyperlipidemia (Chronic) E78.5 Erectile dysfunction (Chronic) N52.9 IDDM (insulin dependent diabetes mellitus) (Chronic) E11.9, Z79.4 Back problem M53.9 Bleeding disorder D69.9 Allergies No Known Allergies Allergy (Verified 01/11/20 02:57) Home Medications: Ambulatory Orders Medication Instructions Recorded Zolpidem Tartrate [Ambien] 10 mg PO QHS 11/06/15 Omeprazole [Prilosec] 40 mg PO DAILY 03/13/18 Multivitamin [Daily Multiple 1 ea PO DAILY 07/17/19 Vitamin] Aspirin [Aspirin, Baby] 81 mg PO DAILY@0800 02/25/20 Clopidogrel Bisulfate [Plavix] 75 mg PO DAILY 09/11/19 Meloxicam [Mobic] 15 mg PO DAILY 09/11/19 Potassium Chloride [Klor-Con] 20 meq PO BID 09/11/19 Ranitidine [Zantac] 300 mg PO DAILY 09/11/19 Warfarin [Coumadin] 4 mg PO DAILY@1700 10/17/19 Atorvastatin Calcium [Lipitor] 40 mg PO QHS 02/25/20 Baclofen [Lioresal] 10 mg PO TID 02/25/20 Insulin Aspart [Novolog Flexpen 33 units SUBCUT TIDCM 02/25/20 ([facility])] Insulin Degludec [Tresiba 100 unit SQ QHS 02/25/20 Flextouch U-200] Lisinopril [Zestril] 20 mg PO DAILY 02/25/20 Rosuvastatin Calcium [Crestor] 40 mg PO QHS 02/25/20 Tramadol HCl [Ultram] 50 mg PO BID 02/25/20 Diltiazem CD [Cardizem CD] 180 mg PO DAILY 02/26/20 Surgical History: - - Lumbar laminectomy and fusion x 2, LLE surgery for clot retrieval with follow-up I&D x2 for infection, recent right great toe surgery as well as follow-up balloon angioplasties per vascular surgery during recent admission. Psychiatric History: No pertinent psych hx Lives: Spouse/ Significant Other Smoking Status: Light Smoker (<10/day) Tobacco Use: Cigarettes Alcohol: None Drugs: None - *Family History Paternal History Items: Diabetes Maternal History Items: Diabetes, Heart Disease, Hypertension, - - History of brain aneurysms. Review of Systems Constitutional: Denies: Chills, Fever Eyes: Denies: Blurred vision, Double vision HEENT: Denies: Head Aches, Sinus Congestion, Sinus Drainage Cardiovascular: Reports: Chest Pain, Edema Respiratory: Reports: Cough, Shortness of Breath Gastrointestinal: Denies: Abdominal Pain, Nausea, Vomiting Genitourinary: Denies: Dysuria Musculoskeletal: Denies: Joint Pain, Joint Tenderness Skin: Denies: Rash, Wounds Neurological: Denies: Numbness, Tingling, Focal weakness Psychiatric: Denies: Anxiety, Depression, Homicidal Ideations, Suicidal Ideations Hematologic/ Lymphatic: Denies: Easy Bruising, Easy Bleeding Patient Problems: Active and Suspected Problems (Last Updated 02/26/20 @ 19:36 by Che Lee) Secondary pulmonary arterial hypertension (Acute) Acute combined systolic (congestive) and diastolic (congestive) heart failure (Acute) Dilated cardiomyopathy (Acute) Respiratory distress (Acute) Pulmonary edema (Acute) Non-STEMI (non-ST elevated myocardial infarction) (Acute 02/25/20) Hyperglycemia (Acute) Objective: The patient's most recent lab work, culture data and imaging studies have all been personally reviewed. - Physical Exam Vitals/I&O's: Vital Signs Temp Pulse Resp BP Pulse Ox 98.5 F 95 26 H 118/88 H 98 02/26/20 04:00 02/26/20 06:00 02/26/20 06:00 02/26/20 06:00 02/26/20 06:00 Oxygen Flow Rate (L/min) 6 Oxygen Delivery Method Bi-pap Weight: 210 lb 5.136 oz Body Mass Index (BMI) 29.9 Finger Stick Blood Glucose 539 Intake and Output for Last 24 Hours 02/24/20 02/25/20 02/26/20 23:59 23:59 23:59 Intake Total 0 / 0 Output Total 2049 Balance -2049 / General: Alert, Cooperative, No apparent distress HEENT: Atraumatic, PERRLA, Normocephalic Oral: Moist Mucosa Neck: Supple, No Nodes, Trachea Midline Lungs: No rhonchi, No wheeze, No rales, Diminished Cardiovascular: Regular rate, Regular Rhythm, Normal S1, Normal S2 Abdomen: Bowel Sounds Present, Soft, Non Tender Extremities: No clubbing, No cyanosis, Edema - Trace pedal Skin: No breakdown Musculoskeletal: No Muscle Wasting Lymphatic: No Cervical, Supraclavicular, or Inguinal Adenopathy Neurological: Cranial nerves II-XII grossly intact, Neuro grossly intact Psych/Mental Status: Alert and oriented to time, place, person, mood and affect Labs (Last 48 Hours) 02/25/20 02/25/20 02/25/20 18:18 18:20 18:20 WBC 15.1 H RBC 4.92 Hgb 13.7 Hct 44.6 MCV 90.7 MCH 27.8 MCHC 30.7 L RDW Std Deviation 47.3 H RDW Coeff of Estrada 14.1 Plt Count 363 MPV 10.3 Immature Gran % (Auto) 0.500 Neut % (Auto) 57.8 Lymph % (Auto) 32.6 [place] % (Auto) 8.3 Eos % (Auto) 0.5 Baso % (Auto) 0.3 Absolute Neuts (auto) 8.8 H Absolute Lymphs (auto) 4.93 H Nucleated RBC % 0 PT 21.1 H INR 1.9 Specimen Type Sample Site pH Bicarbonate Actual Total CO2 Base Excess O2 Saturation O2 % ABG pCO2 ABG pO2 Caesar Test O2 Delivery Device Sodium Potassium Chloride Carbon Dioxide Anion Gap BUN Creatinine Estim Creat Clear Calc Est GFR (MDRD) Af Amer Est GFR (MDRD) Non-Af BUN/Creatinine Ratio Glucose Lactic Acid Calcium Magnesium Total Bilirubin AST ALT Alkaline Phosphatase Troponin I B-Natriuretic Peptide Total Protein Albumin Globulin Albumin/Globulin Ratio Urine Color Urine Clarity Urine pH Ur Specific [place] Urine Protein Urine Glucose (UA) Urine Ketones Urine Occult Blood Urine Nitrite Urine Bilirubin Urine Urobilinogen Ur Leukocyte Esterase Urine RBC Urine WBC Ur Squamous Epith Cells Urine Bacteria Urine Mucus Acetone Level COVID-19 (SCAR) POC Glucose > 500 H* 02/25/20 02/25/20 02/25/20 18:20 18:20 18:20 WBC RBC Hgb Hct MCV MCH MCHC RDW Std Deviation RDW Coeff of Estrada Plt Count MPV Immature Gran % (Auto) Neut % (Auto) Lymph % (Auto) [place] % (Auto) Eos % (Auto) Baso % (Auto) Absolute Neuts (auto) Absolute Lymphs (auto) Nucleated RBC % PT INR Specimen Type Sample Site pH Bicarbonate Actual Total CO2 Base Excess O2 Saturation O2 % ABG pCO2 ABG pO2 Caesar Test O2 Delivery Device Sodium 135 L Potassium 4.0 Chloride 104 Carbon Dioxide 24.0 Anion Gap 7 BUN 14 Creatinine 1.14 Estim Creat Clear Calc 58.79 Est GFR (MDRD) Af Amer 82 Est GFR (MDRD) Non-Af 68 BUN/Creatinine Ratio 12.3 Glucose 553 H* Lactic Acid Calcium 9.0 Magnesium 2.1 Total Bilirubin AST ALT Alkaline Phosphatase Troponin I 16.100 H* B-Natriuretic Peptide 1085.5 H Total Protein Albumin Globulin Albumin/Globulin Ratio Urine Color Urine Clarity Urine pH Ur Specific [place] Urine Protein Urine Glucose (UA) Urine Ketones Urine Occult Blood Urine Nitrite Urine Bilirubin Urine Urobilinogen Ur Leukocyte Esterase Urine RBC Urine WBC Ur Squamous Epith Cells Urine Bacteria Urine Mucus Acetone Level NEGATIVE COVID-19 (SCAR) POC Glucose 02/25/20 02/25/20 02/25/20 18:20 18:36 19:08 WBC RBC Hgb Hct MCV MCH MCHC RDW Std Deviation RDW Coeff of Estrada Plt Count MPV Immature Gran % (Auto) Neut % (Auto) Lymph % (Auto) [place] % (Auto) Eos % (Auto) Baso % (Auto) Absolute Neuts (auto) Absolute Lymphs (auto) Nucleated RBC % PT INR Specimen Type ART Sample Site R Radial pH 7.38 Bicarbonate Actual 21.4 L Total CO2 23 Base Excess -4 L O2 Saturation 97 O2 % 40 ABG pCO2 36.7 ABG pO2 89 Caesar Test Positive O2 Delivery Device BiPAP Sodium Potassium Chloride Carbon Dioxide Anion Gap BUN Creatinine Estim Creat Clear Calc Est GFR (MDRD) Af Amer Est GFR (MDRD) Non-Af BUN/Creatinine Ratio Glucose Lactic Acid 3.8 H* Calcium Magnesium Total Bilirubin AST ALT Alkaline Phosphatase Troponin I B-Natriuretic Peptide Total Protein Albumin Globulin Albumin/Globulin Ratio Urine Color Urine Clarity Urine pH Ur Specific [place] Urine Protein Urine Glucose (UA) Urine Ketones Urine Occult Blood Urine Nitrite Urine Bilirubin Urine Urobilinogen Ur Leukocyte Esterase Urine RBC Urine WBC Ur Squamous Epith Cells Urine Bacteria Urine Mucus Acetone Level COVID-19 (SCAR) Not Detected POC Glucose 02/25/20 02/25/20 02/25/20 21:58 22:00 22:00 WBC RBC Hgb Hct MCV MCH MCHC RDW Std Deviation RDW Coeff of Estrada Plt Count MPV Immature Gran % (Auto) Neut % (Auto) Lymph % (Auto) [place] % (Auto) Eos % (Auto) Baso % (Auto) Absolute Neuts (auto) Absolute Lymphs (auto) Nucleated RBC % PT INR Specimen Type Sample Site pH Bicarbonate Actual Total CO2 Base Excess O2 Saturation O2 % ABG pCO2 ABG pO2 Caesar Test O2 Delivery Device Sodium 138 Potassium 4.3 Chloride 107 Carbon Dioxide 24.0 Anion Gap 7 BUN 14 Creatinine 0.92 Estim Creat Clear Calc 82.98 Est GFR (MDRD) Af Amer 105 Est GFR (MDRD) Non-Af 87 BUN/Creatinine Ratio 15.2 Glucose 402 H Lactic Acid 1.8 Calcium 8.9 Magnesium Total Bilirubin AST ALT Alkaline Phosphatase Troponin I 15.200 H* B-Natriuretic Peptide Total Protein Albumin Globulin Albumin/Globulin Ratio Urine Color Urine Clarity Urine pH Ur Specific [place] Urine Protein Urine Glucose (UA) Urine Ketones Urine Occult Blood Urine Nitrite Urine Bilirubin Urine Urobilinogen Ur Leukocyte Esterase Urine RBC Urine WBC Ur Squamous Epith Cells Urine Bacteria Urine Mucus Acetone Level COVID-19 (SCAR) POC Glucose 429 H 02/26/20 02/26/20 02/26/20 00:15 01:09 01:10 WBC RBC Hgb Hct MCV MCH MCHC RDW Std Deviation RDW Coeff of Estrada Plt Count MPV Immature Gran % (Auto) Neut % (Auto) Lymph % (Auto) [place] % (Auto) Eos % (Auto) Baso % (Auto) Absolute Neuts (auto) Absolute Lymphs (auto) Nucleated RBC % PT INR Specimen Type Sample Site pH Bicarbonate Actual Total CO2 Base Excess O2 Saturation O2 % ABG pCO2 ABG pO2 Caesar Test O2 Delivery Device Sodium Potassium Chloride Carbon Dioxide Anion Gap BUN Creatinine Estim Creat Clear Calc Est GFR (MDRD) Af Amer Est GFR (MDRD) Non-Af BUN/Creatinine Ratio Glucose Lactic Acid Calcium Magnesium Total Bilirubin AST ALT Alkaline Phosphatase Troponin I 14.800 H* B-Natriuretic Peptide Total Protein Albumin Globulin Albumin/Globulin Ratio Urine Color Yellow Urine Clarity Clear Urine pH 6.0 Ur Specific [place] 1.010 Urine Protein 30 H Urine Glucose (UA) 1000 H Urine Ketones Negative Urine Occult Blood Negative Urine Nitrite Negative Urine Bilirubin Negative Urine Urobilinogen Normal Ur Leukocyte Esterase Negative Urine RBC 0 SEEN Urine WBC 0 SEEN Ur Squamous Epith Cells 0 SEEN Urine Bacteria 0 SEEN Urine Mucus 0 SEEN Acetone Level COVID-19 (SCAR) POC Glucose 358 H 02/26/20 02/26/20 02/26/20 04:58 04:58 04:58 WBC 8.1 RBC 4.28 L Hgb 12.0 L Hct 37.5 L MCV 87.6 MCH 28.0 MCHC 32.0 RDW Std Deviation 45.1 H RDW Coeff of Estrada 14.1 Plt Count 245 MPV 10.1 Immature Gran % (Auto) 0.500 Neut % (Auto) 68.2 Lymph % (Auto) 19.3 [place] % (Auto) 11.4 H Eos % (Auto) 0.2 Baso % (Auto) 0.4 Absolute Neuts (auto) 5.5 Absolute Lymphs (auto) 1.56 Nucleated RBC % 0 PT 20.5 H INR 1.8 Specimen Type Sample Site pH Bicarbonate Actual Total CO2 Base Excess O2 Saturation O2 % ABG pCO2 ABG pO2 Caesar Test O2 Delivery Device Sodium 142 Potassium 3.8 Chloride 108 H Carbon Dioxide 27.0 Anion Gap 7 BUN 12 Creatinine 0.76 Estim Creat Clear Calc 76.35 Est GFR (MDRD) Af Amer 132 Est GFR (MDRD) Non-Af 109 BUN/Creatinine Ratio 15.9 Glucose 297 H Lactic Acid Calcium 8.1 L Magnesium Total Bilirubin 0.80 AST 63 H ALT 50 Alkaline Phosphatase 94 Troponin I B-Natriuretic Peptide Total Protein 6.6 Albumin 2.9 L Globulin 3.7 Albumin/Globulin Ratio 0.8 L Urine Color Urine Clarity Urine pH Ur Specific [place] Urine Protein Urine Glucose (UA) Urine Ketones Urine Occult Blood Urine Nitrite Urine Bilirubin Urine Urobilinogen Ur Leukocyte Esterase Urine RBC Urine WBC Ur Squamous Epith Cells Urine Bacteria Urine Mucus Acetone Level COVID-19 (SCAR) POC Glucose Clinical Impression(s) from Imaging Studies Chest X-Ray 02/25/20 18:15 IMPRESSION: Degenerative changes, as described above. No demonstrated acute cardiopulmonary process. Electronically Signed: Darryn Kaye MD at 18:36 EDT , Service support , Chest CTA 02/25/20 18:22 IMPRESSION: No demonstrated PE, or thoracic aortic aneurysm or dissection Diffuse interstitial changes in both lung brown with groundglass opacifications in both lung brown and small bilateral pleural effusions. Follow-up recommended to assure resolution Scattered subcentimeter mediastinal lymphadenopathy Chronic bronchitis Degenerative bony changes Fatty liver Electronically Signed: Darryn Kaye MD at 19:33 EDT , Service support , Current Medications Acetaminophen (Tylenol) 650 mg PO Q6H PRN PRN PRN Reason: Pain Score 1-10/Temp > 100.7 F Albuterol/Ipratropium (Duoneb) 3 ml INHALATION Q6H.RT ARIA Last Admin: 02/26/20 01:04 Dose: 3 ml Documented by: Aspirin (Aspirin, Baby) 81 mg PO DAILY@0800 [facility] Carvedilol (Coreg) 3.125 mg PO BIDCM [facility] Dextrose (D50w Syringe) 0 gm IV X1 PRN; Protocol PRN Reason: Hypoglycemia Protocol Furosemide (Lasix) 40 mg IV Q8 [facility] Last Admin: 02/26/20 05:42 Dose: 40 mg Documented by: Sodium Chloride () 250 mls @ 15 mls/hr IV .[id number] PRN PRN Reason: Saline Flush Insulin Human Lispro (Humalog Kwikpen (Bkc)) 0 unit SC Q6 ARIA; Protocol Last Admin: 02/26/20 05:42 Dose: 9 u Documented by: Lisinopril (Zestril) 20 mg PO DAILY [facility] Ondansetron HCl (Zofran) 4 mg IV Q8H PRN PRN PRN Reason: NAUSEA/VOMITING Sodium Chloride () 10 - 40 ml IV UD PRN PRN Reason: SALINE FLUSH Last Admin: 02/26/20 05:42 Dose: 30 ml Documented by: Assessment/Plan Active and Suspected Problems (Last Updated 02/26/20 @ 19:36 by Che Lee) Secondary pulmonary arterial hypertension (Acute) Acute combined systolic (congestive) and diastolic (congestive) heart failure (Acute) Dilated cardiomyopathy (Acute) Respiratory distress (Acute) Pulmonary edema (Acute) Non-STEMI (non-ST elevated myocardial infarction) (Acute 02/25/20) Hyperglycemia (Acute) RECOMMENDATIONS: 1. Continue to wean oxygen as tolerated to maintain saturations at or above 90%. 2. Continue bronchodilator therapy. 3. Continue scheduled IV diuretic therapy as tolerated by hemodynamics and renal function. 4. Continue sliding scale insulin coverage. 5. Possible left heart catheterization in near future. 6. Encourage incentive spirometer use and mobilize patient as tolerated. 7. Nicotine replacement therapy can be offered to the patient while admitted to the hospital. IMPRESSIONS: 1. Acute hypoxemic respiratory failure Clinical concern for acute decompensated heart failure/non-ST segment elevation myocardial infarction as precipitating etiology. Although the patient did have an elevated white blood cell count and lactate on presentation, I do suspect that this was secondary to increased work of breathing and hypoxemia, as opposed to an underlying infectious etiology. The patient has responded quite quickly to the use of noninvasive positive pressure ventilatory support and diuresis. He has been weaned to nasal cannula oxygen as of this morning. Plan to continue diuretic therapy as tolerated by renal function and hemodynamic status. Given that there is a possibility that the patient may have an underlying component of obstructive lung disease, I would recommend that bronchodilators be continued on an as-needed basis. There are possible plans for left heart catheterization in the patient's near future. 2. Non-ST segment elevation UT/acute decompensated heart failure Continue diuresis as ordered. Additional medical management per cardiology recommendations. 3. Possible COPD/history of tobacco dependency The patient does have an extensive smoking history. I personally spent 5 minutes discussing the deleterious effects of continued tobacco use with the patient, including modalities which could be utilized to achieve a smoke-free lifestyle. I would recommend the following discharge, that the patient follow- up in the pulmonary medicine clinic so that baseline PFTs can be obtained. 4. Hyperglycemia/peripheral vascular disease/hypertension/history of DVT Complicates care, management, recovery and prognosis. Continue sliding scale insulin coverage. This note was generated with [employer] dictation software. It may contain incorrect words, spelling, and punctuation that were not noted in checking the note before signing.
--- NOTE | 2020-02-26 07:22 | PN_ITS ---
Patient Problems: Active and Suspected Problems (Last Updated 02/25/20 @ 20:[address] Juan Claros MD) Respiratory distress (Acute) Pulmonary edema (Acute) Non-STEMI (non-ST elevated myocardial infarction) (Acute) Hyperglycemia (Acute) Reason for Visit: Follow-up for non-STEMI, acute CHF exacerbation with acute respiratory failure Objective: Patient states for last 2 days he gets short of breath, chest pressure on exertion, walking. He lifted 12 heavy gallons of water and felt chest pressure and winded. Yesterday, he came to see nurse practitioner Dr. Hernandez for INR check and short of breath, chest pressure, feeling lightheaded and dizzy on walking through the hallway and under hot and humid sun. He went back home took a nap and woke up with shortness of breath, chest pressure, mild cough with no relief at rest and called ambulance and came to ER. Vitals/I&O's: Vital Signs Temp Pulse Resp BP Pulse Ox 98.5 F 95 26 H 118/88 H 98 02/26/20 04:00 02/26/20 06:00 02/26/20 06:00 02/26/20 06:00 02/26/20 06:00 Oxygen Flow Rate (L/min) 6 Oxygen Delivery Method Bi-pap Weight: 210 lb 5.136 oz Body Mass Index (BMI) 29.9 Finger Stick Blood Glucose 539 Intake and Output for Last 24 Hours 02/24/20 02/25/20 02/26/20 23:59 23:59 23:59 Intake Total 0 / 0 Output Total 2049 Balance -2049 / -2049 General: Alert, Oriented x3, Cooperative HEENT: Atraumatic, PERRLA, EOMI, Normocephalic Oral: No Gingival or Mucosal Lesions/ Ulcerations, Dry Mucosa Neck: Supple, No JVD, Negative Carotid Bruits Lungs: No rhonchi, No wheeze, No rales, Diminished - Air entry is diffusely diminished predominantly on both lower lobes Cardiovascular: Regular rate, Regular Rhythm, Normal S1, Normal S2, No murmurs Abdomen: Bowel Sounds Present, Soft, Non Tender, Non-Distended Extremities: No edema, Capillary Refill Less than 3 Seconds Skin: No rashes, No breakdown Musculoskeletal: No Tenderness to Palpation of Joints or Extremities Neurological: Cranial nerves II-XII grossly intact, Deep Tendon Reflexes 2+/4 and Symmetrical, Neuro grossly intact Psych/Mental Status: Normal Affect, Appropriate Laboratory Results 02/25/20 18:18: POC Glucose > 500 H* 02/25/20 18:20: WBC 15.1 H, RBC 4.92, Hgb 13.7, Hct 44.6, MCV 90.7, MCH 27.8, MCHC 30.7 L, RDW Std Deviation 47.3 H, RDW Coeff of [place]str[place] 14.1, Plt Count 363, MPV 10.3, Immature Gran % (Auto) 0.500, Neut % (Auto) 57.8, Lymph % (Auto) 32.6, [place] % (Auto) 8.3, Eos % (Auto) 0.5, Baso % (Auto) 0.3, Absolute Neuts (auto) 8.8 H, Absolute Lymphs (auto) 4.93 H, Nucleated RBC % 0 02/25/20 18:20: PT 21.1 H, INR 1.9 02/25/20 18:20: Sodium 135 L, Potassium 4.0, Chloride 104, Carbon Dioxide 24.0, Anion Gap 7, BUN 14, Creatinine 1.14, Estim Creat Clear Calc 58.79, Est GFR (MDRD) Af Amer 82, Est GFR (MDRD) Non-Af 68, BUN/Creatinine Ratio 12.3, Glucose 553 H*, Calcium 9.0, Magnesium 2.1, Troponin I 16.100 H* 02/25/20 18:20: B-Natriuretic Peptide 1085.5 H 02/25/20 18:20: Acetone Level NEGATIVE 02/25/20 18:20: Lactic Acid 3.8 H* 02/25/20 18:36: COVID-19 (SCAR) Not Detected 02/25/20 19:08: Specimen Type ART, Sample Site R Radial, pH 7.38, Bicarbonate Actual 21.4 L, Total CO2 23, Base Excess -4 L, O2 Saturation 97, O2 % 40, ABG pCO2 36.7, ABG pO2 89, Caesar Test Positive, O2 Delivery Device BiPAP 02/25/20 21:58: POC Glucose 429 H 02/25/20 22:00: Sodium 138, Potassium 4.3, Chloride 107, Carbon Dioxide 24.0, Anion Gap 7, BUN 14, Creatinine 0.92, Estim Creat Clear Calc 82.98, Est GFR (MDRD) Af Amer 105, Est GFR (MDRD) Non-Af 87, BUN/Creatinine Ratio 15.2, Glucose 402 H, Calcium 8.9, Troponin I 15.200 H* 02/25/20 22:00: Lactic Acid 1.8 02/26/20 00:15: Urine Color Yellow, Urine Clarity Clear, Urine pH 6.0, Ur Specific [place] 1.010, Urine Protein 30 H, Urine Glucose (UA) 1000 H, Urine Ketones Negative, Urine Occult Blood Negative, Urine Nitrite Negative, Urine Bilirubin Negative, Urine Urobilinogen Normal, Ur Leukocyte Esterase Negative, Urine RBC 0 SEEN, Urine WBC 0 SEEN, Ur Squamous Epith Cells 0 SEEN, Urine Bacteria 0 SEEN, Urine Mucus 0 SEEN 02/26/20 01:09: POC Glucose 358 H 02/26/20 01:10: Troponin I 14.800 H* 02/26/20 04:58: WBC 8.1, RBC 4.28 L, Hgb 12.0 L, Hct 37.5 L, MCV 87.6, MCH 28.0, MCHC 32.0, RDW Std Deviation 45.1 H, RDW Coeff of [place] 14.1, Plt Count 245, MPV 10.1, Immature Gran % (Auto) 0.500, Neut % (Auto) 68.2, Lymph % (Auto) 19.3, [place] % (Auto) 11.4 H, Eos % (Auto) 0.2, Baso % (Auto) 0.4, Absolute Neuts (auto) 5.5, Absolute Lymphs (auto) 1.56, Nucleated RBC % 0 02/26/20 04:58: PT 20.5 H, INR 1.8 02/26/20 04:58: Sodium 142, Potassium 3.8, Chloride 108 H, Carbon Dioxide 27.0, Anion Gap 7, BUN 12, Creatinine 0.76, Estim Creat Clear Calc 76.35, Est GFR (MDRD) Af Amer 132, Est GFR (MDRD) Non-Af 109, BUN/Creatinine Ratio 15.9, Glucose 297 H, Calcium 8.1 L, Total Bilirubin 0.80, AST 63 H, ALT 50, Alkaline Phosphatase 94, Total Protein 6.6, Albumin 2.9 L, Globulin 3.7, Albumin/Globulin Ratio 0.8 L Current Medications Acetaminophen (Tylenol) 650 mg PO Q6H PRN PRN PRN Reason: Pain Score 1-10/Temp > 100.7 F Albuterol/Ipratropium (Duoneb) 3 ml INHALATION Q6H.RT ARIA Last Admin: 02/26/20 01:04 Dose: 3 ml Documented by: Aspirin (Aspirin, Baby) 81 mg PO DAILY@0800 [facility] Carvedilol (Coreg) 3.125 mg PO BIDCM [facility] Dextrose (D50w Syringe) 0 gm IV X1 PRN; Protocol PRN Reason: Hypoglycemia Protocol Furosemide (Lasix) 40 mg IV Q8 [facility] Last Admin: 02/26/20 05:42 Dose: 40 mg Documented by: Sodium Chloride () 250 mls @ 15 mls/hr IV .[id number] PRN PRN Reason: Saline Flush Insulin Human Lispro (Humalog Kwikpen (Bkc)) 0 unit SC Q6 ARIA; Protocol Last Admin: 02/26/20 05:42 Dose: 9 u Documented by: Lisinopril (Zestril) 20 mg PO DAILY [facility] Ondansetron HCl (Zofran) 4 mg IV Q8H PRN PRN PRN Reason: NAUSEA/VOMITING Sodium Chloride () 10 - 40 ml IV UD PRN PRN Reason: SALINE FLUSH Last Admin: 02/26/20 05:42 Dose: 30 ml Documented by: STROKE Vital Signs/Narrative: Vital Signs Temp Pulse Resp BP Pulse Ox 02/26/20 06:00 95 26 H 118/88 H 98 02/26/20 05:00 94 25 H 114/84 H 98 02/26/20 04:20 91 26 H 99 02/26/20 04:00 98.5 F 95 30 H 115/83 H 100 02/26/20 03:58 94 Medical Necessity - Tobacco Use Smoking Status: Light Smoker (<10/day) Tobacco Use: Cigarettes Assessment/Plan All Active Problems (Last Updated 02/25/20 @ 20:[address] Juan Claros MD) Respiratory distress (Acute) Pulmonary edema (Acute) Non-STEMI (non-ST elevated myocardial infarction) (Acute) Hyperglycemia (Acute) This is a 69 years old male patient is admitted to ICU for chest pain and shortness of breath and clinical assessment consistent with acute non-ST elevation [place], acute CHF causing acute hypoxic respiratory failure, lactic aci dosis and hyperglycemia without evidence of DKA. #1 acute non-ST elevation WA: Twelve-lead EKG reviewed shows [address] elevation and Q waves in single lead V1, troponin in the range of 16 consistent with non- STEMI. well driller reviewed and shows 10 beats of NSVT 2 times. Patient received 1 dose of Brilinta and aspirin in the ED. patient is on aspirin, clopidogrel, beta-justine and SELMA inhibitor. 2D echo is ordered. Possible left heart cath tomorrow if he is able to lie flat. #2 acute congestive heart failure: Probably systolic. BNP is elevated. On IV Lasix. Rest of medications as mentioned above #3 lactic acidosis: This is probably due to acute hypoxemia. COVID-19 PCR is negative. Leukocytosis 15,000 probably secondary to stress/non-STEMI. Lactic acidosis mainly due to hypoxemia and hypoperfusion. Repeat lactic acid normal. At this time, no indication for IV antibiotics. UA is negative except glucose 1000. Protein 30. Blood cultures x2 urine culture pending but patient does not have new lower urinary tract symptoms. #4 acute hypoxic respiratory failure secondary to 1 and 2. Patient required 40% FiO2 on BiPAP. Currently on 30% FiO2 after diuresis. ABG revealed pH of 7.38, PCO2 of 36 and PO2 of 89. #5 hyperglycemia without evidence of DKA: Admission blood glucose was 553, bicarb is 24 and anion gap is 7. No evidence of DKA. #6 type 2 diabetes mellitus: Uncontrolled. Hemoglobin A1c was 13.3% on June,. Blood sugar is very high, no DKA. Plan as above. #7 COPD:Chest x-ray as well as CTA chest independently reviewed and with flame channeler. Chest x-ray shows bilateral diffuse interstitial changes with groundglass opacities small bilateral pleural effusion. CT chest shows no PE but diffuse interstitial changes with bronchiectasis, peribronchial thickening in bilateral lower lobes, small bilateral effusion and chronic bronchitis changes. Patient has smoking history, a pack per day since age of 37 and still smokes. CT chest suggestive of chronic bronchitis and lower lobes bronchiectasis. Plan for DuoNeb every 6 hours, continue BiPAP. #8 peripheral vascular disease: Status post right lower extremity balloon angioplasty. Patient also had MRSA infected wound in the left lower leg in the past. Patient was on aspirin, statin and Plavix. #9 hypertension: Blood pressure is on the low side but stable. 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 #11 history of DVT: Currently on Coumadin, INR 1.8. #12 hyperlipidemia: Continue statins. #13 CODE STATUS: Full code, discussed with the patient. #14 DVT prophylaxis: Bilateral SCDs Inpatient E&M: [id number] [facility] Hosp L3
--- NOTE | 2020-02-26 07:51 | PN.CARD_ITS ---
Subjectve: Patient seen and evaluated. Appears to be doing better. Still requiring BiPAP at 30% Objective: Vital Signs Temp Pulse Resp BP Pulse Ox 98.5 F 92 24 H 118/88 H 99 02/26/20 04:00 02/26/20 07:45 02/26/20 07:00 02/26/20 06:00 02/26/20 07:00 Oxygen Flow Rate (L/min) 6 Oxygen Delivery Method Bi-pap Weight: 210 lb 5.136 oz Body Mass Index (BMI) 29.9 Finger Stick Blood Glucose 539 Intake and Output for Last 24 Hours 02/24/20 02/25/20 02/26/20 23:59 23:59 23:59 Intake Total 0 / 0 Output Total 2049 Balance -2049 General: Awake, Alert, Oriented x 3 HEENT: PERRL, EOMI, Sclera Non Icteric Neck: Supple, Good ROM, No Lymph Node Enlargement Lungs: Diminished [place] Cardiovascular: Regular Rhythm, Normal S1, Normal S2, No Murmurs, No Rubs, No Gallops Vascular: No Carotid Bruits, Normal Femoral Pulses, Normal Radial Pulses, Normal Dorsalis Pedal Pulse, Normal Posterior Tibial Pulses Abdomen: Bowel Sounds Present, Soft, Non Tender, No HSM, No Organomegaly Extremities: No Cyanosis, No Clubbing, No edema Musculoskeletal: No Erythema Skin: No Rashes Neurological: No Focal Motor or Sensory Deficit 02/25/20 18:20: WBC 15.1 H, RBC 4.92, Hgb 13.7, Hct 44.6, MCV 90.7, MCH 27.8, MCHC 30.7 L, Plt Count 363, MPV 10.3, Immature Gran % (Auto) 0.500, Neut % (Auto) 57.8, Lymph % (Auto) 32.6, [place] % (Auto) 8.3, Eos % (Auto) 0.5, Baso % (Auto) 0.3, Absolute Neuts (auto) 8.8 H, Nucleated RBC % 0 02/25/20 18:20: PT 21.1 H, INR 1.9 02/25/20 18:20: Sodium 135 L, Potassium 4.0, Chloride 104, Carbon Dioxide 24.0, Anion Gap 7, BUN 14, Creatinine 1.14, Est GFR (MDRD) Af Amer 82, Est GFR (MDRD) Non-Af 68, BUN/Creatinine Ratio 12.3, Glucose 553 H*, Calcium 9.0, Magnesium 2.1, Troponin I 16.100 H* 02/25/20 18:20: B-Natriuretic Peptide 1085.5 H 02/25/20 18:20: Lactic Acid 3.8 H* 02/25/20 19:08: pH 7.38, Bicarbonate Actual 21.4 L, Base Excess -4 L, O2 Saturation 97, ABG pCO2 36.7, ABG pO2 89, Caesar Test Positive 02/25/20 22:00: Sodium 138, Potassium 4.3, Chloride 107, Carbon Dioxide 24.0, Anion Gap 7, BUN 14, Creatinine 0.92, Est GFR (MDRD) Af Amer 105, Est GFR (MDRD) Non-Af 87, BUN/Creatinine Ratio 15.2, Glucose 402 H, Calcium 8.9, Troponin I 15.200 H* 02/25/20 22:00: Lactic Acid 1.8 02/26/20 00:15: Urine Color Yellow, Urine Clarity Clear, Urine pH 6.0, Ur Specific [place] 1.010, Urine Protein 30 H, Urine Glucose (UA) 1000 H, Urine Ketones Negative, Urine Occult Blood Negative, Urine Nitrite Negative, Urine Bilirubin Negative, Urine Urobilinogen Normal, Ur Leukocyte Esterase Negative, Urine RBC 0 SEEN, Urine WBC 0 SEEN 02/26/20 01:10: Troponin I 14.800 H* 02/26/20 04:58: WBC 8.1, RBC 4.28 L, Hgb 12.0 L, Hct 37.5 L, MCV 87.6, MCH 28.0, MCHC 32.0, Plt Count 245, MPV 10.1, Immature Gran % (Auto) 0.500, Neut % (Auto) 68.2, Lymph % (Auto) 19.3, [place] % (Auto) 11.4 H, Eos % (Auto) 0.2, Baso % (Auto) 0.4, Absolute Neuts (auto) 5.5, Nucleated RBC % 0 02/26/20 04:58: PT 20.5 H, INR 1.8 02/26/20 04:58: Sodium 142, Potassium 3.8, Chloride 108 H, Carbon Dioxide 27.0, Anion Gap 7, BUN 12, Creatinine 0.76, Est GFR (MDRD) Af Amer 132, Est GFR (MDRD) Non-Af 109, BUN/Creatinine Ratio 15.9, Glucose 297 H, Calcium 8.1 L, Total Bilirubin 0.80 Rhythm: EKG: ECHO: Stress Test: Cardiac Cath: PCI: CT Surgery: Holter monitor: EPS: PPM: CXR: Chest CT Scan: Medical Necessity - Tobacco Use Smoking Status: Light Smoker (<10/day) Tobacco Use: Cigarettes Assessment/Plan This is a 69 years old male patient presented to the emergency room because of chest pain or shortness of breath, found to have acute non-ST elevation AK, acute CHF causing acute hypoxic respiratory sufficiency, lactic acidosis and hyperglycemia without evidence of DKA. #1 acute non-ST elevation AK: * It appears the patient presented with a recent non-ST elevation myocardial infarction * Will start beta-justine as blood pressure tolerates as well as SELMA inhibitor * Aspirin * Continue clopidogrel. The patient was administered Brilinta in the ER * Will obtain echocardiogram to assess the ventricular function * Depending on clinical course as well as improvement in his hyperglycemia he will be considered for a left heart catheterization. This will likely be performed in a.m. Tuesday. Patient still unable to lie flat. * He is having no active chest pain and no acute EKG changes * Had some nonsustained V. tach. Asymptomatic. Will check electrolytes. #2 Acute congestive heart failure: Probably systolic. * The chest x-ray as well as the natruretic peptide and the clinical signs are suggestive of the above. * Will institute intravenous Lasix * Obtain echocardiogram to assess ventricular function * #3 lactic acidosis: This is probably due to acute hypoxemia. I doubt infection, sepsis or severe sepsis. Chest x-ray showed pulmonary vascular congestion. COVID-19 is negative. At this time, no indication for IV antibiotics. Plan: Blood culture, urine culture, urinalysis. As per hospitalist and footwear sales coordinator #4 acute hypoxic respiratory sufficiency: Secondary to #1 #2. Patient is on BiPAP. ABG revealed pH of 7.38, PCO2 of 36 and PO2 of 89. Plan for IV diuresis, continue BiPAP for now, critical care consult. #5 hyperglycemia without evidence of DKA: Admission blood glucose was 553, bicarb is 24 and anion gap is 7. No evidence of DKA. Treatment plan as per hospitalist #6 type 2 diabetes mellitus: Uncontrolled. Hemoglobin A1c was 13.3% on June,. Blood sugar is very high, no DKA. Plan as above. #7 COPD: He is on BiPAP, ABG reviewed. Plan for DuoNeb every 6 hours, continue BiPAP. #8 peripheral vascular disease: * Status post right lower extremity balloon angioplasty. Patient was on aspirin, statin and Plavix. He received 1 dose of Brilinta and aspirin in the ED. * Will continue with Plavix * Continue statins #9 hypertension: Blood pressure is on the low side but stable. Plan for IV Lasix for diuresis, lisinopril if blood pressure tolerates. #10 history of DVT: Currently on Coumadin, INR is 1.9. Coumadin will be held, repeat INR tomorrow morning. #11 hyperlipidemia: Continue statins. Thank you for allowing me to participate in the care of your patient. Please don't hesitate to call if any issues arise.
[2020-02-26] MEDS: Carvedilol 3.125 MG TABLET PO ×2 (07:59→16:55)
[2020-02-26] MEDS: Aspirin 81 MG TAB.CHEW PO (07:59)
--- NOTE | 2020-02-26 08:11 | EKG12_ITS ---
Test Reason : AM EKG Blood Pressure : / mmHG Vent. Rate : 099 BPM Atrial Rate : 099 BPM P-R Int : 154 ms QRS Dur : 084 ms QT Int : 328 ms P-R-T Axes : 041 020 125 degrees QTc Int : 420 ms Normal sinus rhythm Septal infarct , age undetermined Abnormal ECG When compared with ECG of 26-FEB-2020 09:53, MANUAL COMPARISON REQUIRED, DATA IS UNCONFIRMED Confirmed by WAQAS SUE ([id number]), clinical editor STANISLAV OVIEDO ([id number]) on 02/29/2020 10:38:25 AM Referred By: TALITA Confirmed By:WAQAS SUE
--- NOTE | 2020-02-26 09:26 | CASEMGMT ---
RN CM Assessment Note Attempted to call patient's cousin (POA) Mariam Bai- no answer to phone call. Patient is on bipap and unable to particpate in assessment at this time.Anna HENDERSON RN ACM
[2020-02-26] MEDS: Lisinopril 20 MG Tablet PO (10:03)
[2020-02-26] MEDS: Acetaminophen 325 MG Tablet 650 MG PO (12:27)
[2020-02-26 12:35] LABS: Bedside Glucose 335 mg/dL (70-110)
--- NOTE | 2020-02-26 12:41 | CASEMGMT ---
RN CM Assessment Note Intro role of CM to patient in room. Patient is off bipap, on 2L NC. Awake, alert and able to participate in assessment. Patient states he lives in duplex with his cousin and plans to return there on discharge. Currently is able to care for self @ home with available equipment. Patient is currently on oxygen, does not have home oxygen. Per cardiology note, pt received Brilinta in ER, but Plavix will be continued. - Patient's COVID testing negative, but isolation maintained as bedbug was found on pt in ER. Presentation: chest pain, shortness of breath. Diagnosis: NSTEMI PCP: Dr. Hernandez Specialists: Dr. Morton [facility] Pres[facility] Benefit: yes LNOK: Mariam Bai, cousin, POA Living Arrangements: Lives in duplex with his cousin. 13 steps up to main floor where pt has bedroom, bathroom, kitchen and living area. States he has difficulty with stairs but is still able to go up and down without assist. Patient states he does cooking and driving. Tranportation: patient drives DME: shower, chair, hand held shower, walker, rollator, wheelchair HHC: none currently. SNF: TCU past. Patient DC Goals: Home DC Plan: anticipate home on discharge. PT/OT evaluations pending. CM available to assist with dc needs that arise. Anna HENDERSON RN ACM
--- NOTE | 2020-02-26 15:53 | CASEMGMT ---
According to the [facility] website, the following are in-network tertiary facilities: [facility], [place], [facility], [place], [facility], [facility], [place], [facility], and . jT HOPE CM
--- NOTE | 2020-02-26 16:45 | NURSING ---
Arrived to PCU from ICU. Lungs CTA, oxygen at 2l/NC. No edema noted. Voices no complaints.
[2020-02-26 17:15] LABS: Bedside Glucose 349 mg/dL (70-110)
[2020-02-26] MEDS: Atorvastatin Calcium 40 MG Tablet PO (22:10)
[2020-02-26 22:21] LABS: Bedside Glucose 315 mg/dL (70-110)
[2020-02-27] VITALS (16 sets, daily range): BP systolic 103–124; BP diastolic 49–79; PULSE 84–102; RESP 14–22; TEMP 36.6–37.1; O2SAT 94–99
--- NOTE | 2020-02-27 00:20 | NURSING ---
Rec'd report from HERMINIA Roman. This RN taking over pt's care at this time. JeremyRN
--- NOTE | 2020-02-27 05:55 | EKG12_ITS ---
Test Reason : ROUTINEICU Blood Pressure : / mmHG Vent. Rate : 097 BPM Atrial Rate : 097 BPM P-R Int : 152 ms QRS Dur : 082 ms QT Int : 358 ms P-R-T Axes : 051 019 099 degrees QTc Int : 454 ms Normal sinus rhythm Septal infarct , age undetermined Abnormal ECG When compared with ECG of 25-FEB-2020 18:03, MANUAL COMPARISON REQUIRED, DATA IS UNCONFIRMED Confirmed by WAQAS SUE ([id number]), offline editor STANISLAV OVIEDO ([id number]) on 02/29/2020 10:39:47 AM Referred By: EVARISTO Confirmed By:WAQAS SUE
[2020-02-27 05:57] LABS: Absolute Neutrophil Count 4.9 X10^3/uL (2.0-7.7); Basophil# 0.03 X10^3/uL; Basophil% 0.4 % (0-1); Eosinophil# 0.09 X10^3/uL; Eosinophils% 1.2 % (0-5); Hematocrit 36.4 % (40-54); Hemoglobin 11.6 g/dL (13.0-16.5); Lymphocyte % 26.3 % (19-41); Mean Corp Hgb Conc 31.9 g/dL (32-36); Mean Corpuscular Volume 87.7 fL (80-94); Mean Platelet Vol. 10.5 fl (6.2-12.0); Monocyte% 7.9 % (0-10); NRBC Flagged by Analyzer 0 % (0-5); Neutrophil # 4.85 X10^3/uL (2.7-7.7); Neutrophil % 63.8 % (47-70); Platelet Count 258 K/mm3 (150-450); RBC Distribution Width SD 44.8 fl (35.1-43.9); Red Blood Count 4.15 M/mm3 (4.6-6.2); White Blood Count 7.6 K/mm3 (4.4-11.0)
[2020-02-27] MEDS: Carvedilol 3.125 MG TABLET PO (06:32)
[2020-02-27] MEDS: Aspirin 81 MG TAB.CHEW PO (06:32)
[2020-02-27] MEDS: dilTIAZem CD 180 MG Capsule PO (06:32)
[2020-02-27] MEDS: Lisinopril 20 MG Tablet PO (06:32)
[2020-02-27] MEDS: Clopidogrel Bisulfate 75 MG Tablet PO (06:42)
[2020-02-27 06:49] LABS: International Normalized Ratio 1.4; Prothrombin Time (Protime)PT. 16.6 SECONDS (11.7-14.9)
[2020-02-27 06:50] LABS: Anion Gap 6 (5-15); BUN 21 mg/dL (7-18); BUN/Creat Ratio 28.3 RATIO (10-20); Calcium,Total 8.6 mg/dL (8.5-10.1); Chloride 104 mmol/L (98-107); Cholesterol 221 mg/dL (200); Creatinine, Serum 0.74 mg/dL (0.70-1.30); EST Glomerular Filtration Rate 112 mL/min (>60); Est Glom Filt Rate - Afr Amer 135 mL/min (>60); Estimated Creatinine Clearance 76.35 ml/min; Glucose 256 mg/dL (74-106); High Density Lipoprotein 46 mg/dL; Magnesium 1.8 mg/dL (1.6-2.6); Potassium 3.8 mmol/L (3.5-5.1); Sodium Level 137 mmol/L (136-145); Thyroid Stim Hormone (TSH) 1.17 uIU/mL (0.358-3.74); Triglycerides 181 mg/dL; Very Low Density Lipoprotein 36 mg/dL (5-40)
[2020-02-27 07:00] LABS: Bedside Glucose 271 mg/dL (70-110)
--- NOTE | 2020-02-27 08:02 | NURSING ---
Report called to HERMINIA Mahmood in physical laboratory assistant
--- NOTE | 2020-02-27 08:56 | PN.CARD_ITS ---
Subjectve: Patient seen and evaluated. Doing well otherwise underwent heart catheterization today Objective: Vital Signs Temp Pulse Resp BP Pulse Ox 97.9 F 102 H 20 H 121/79 H 99 02/27/20 06:30 02/27/20 06:55 02/27/20 07:32 02/27/20 06:30 02/27/20 08:06 Oxygen Flow Rate (L/min) 1 Oxygen Delivery Method Nasal Cannula Weight: 215 lb 2.738 oz Body Mass Index (BMI) 29.9 Finger Stick Blood Glucose 539 Intake and Output for Last 24 Hours 02/25/20 02/26/20 02/27/20 23:59 23:59 23:59 Intake Total 1364 / 1364 0 / 0 Output Total 3900 / 3900 250 / 250 Balance -2536 / -2536 -250 / -250 General: Awake, Alert, Oriented x 3 HEENT: PERRL, EOMI, Sclera Non Icteric Neck: Supple, Good ROM, No Lymph Node Enlargement Lungs: Clear to auscultation Cardiovascular: Regular Rhythm, Normal S1, Normal S2, No Murmurs, No Rubs, No Gallops Vascular: No Carotid Bruits, Normal Femoral Pulses, Normal Radial Pulses, Normal Dorsalis Pedal Pulse, Normal Posterior Tibial Pulses Abdomen: Bowel Sounds Present, Soft, Non Tender, No HSM, No Organomegaly Extremities: No Cyanosis, No Clubbing, No edema Musculoskeletal: No Erythema Lymphatic: No Lymph Node Enlargement Neurological: No Focal Motor or Sensory Deficit 02/27/20 05:20: Sodium 137, Potassium 3.8, Chloride 104, Carbon Dioxide 27.0, Anion Gap 6, BUN 21 H, Creatinine 0.74, Est GFR (MDRD) Af Amer 135, Est GFR (MDRD) Non-Af 112, BUN/Creatinine Ratio 28.3 H, Glucose 256 H, Calcium 8.6, Magnesium 1.8, Triglycerides 181, Cholesterol 221 H, LDL Cholesterol 139 H, VLDL Cholesterol 36, HDL Cholesterol 46 02/27/20 05:20: WBC 7.6, RBC 4.15 L, Hgb 11.6 L, Hct 36.4 L, MCV 87.7, MCH 28.0, MCHC 31.9 L, Plt Count 258, MPV 10.5, Immature Gran % (Auto) 0.400, Neut % (Auto) 63.8, Lymph % (Auto) 26.3, Sierra % (Auto) 7.9, Eos % (Auto) 1.2, Baso % (Auto) 0.4, Absolute Neuts (auto) 4.9, Nucleated RBC % 0 02/27/20 06:25: PT 16.6 H, INR 1.4 Rhythm: EKG: ECHO: Stress Test: Cardiac Cath: PCI: CT Surgery: Holter monitor: EPS: PPM: CXR: Chest CT Scan: Medical Necessity - Tobacco Use Smoking Status: Light Smoker (<10/day) Tobacco Use: Cigarettes Assessment/Plan This is a 69 years old male patient presented to the emergency room because of chest pain or shortness of breath, found to have acute non-ST elevation ID, acute CHF causing acute hypoxic respiratory sufficiency, lactic acidosis and hyperglycemia without evidence of DKA. #1 acute non-ST elevation ID: * It appears the patient presented with a recent non-ST elevation myocardial infarction * Will start beta-justine as blood pressure tolerates as well as SELMA inhibitor * Aspirin * Cardiac catheterization today demonstrated the following: Mild left main coronary artery disease. Mild to moderate diffuse disease of the left anterior descending artery. Mild to moderate diffuse disease noted of the left circumflex artery. Left to right distal collaterals. Totally occluded right coronary artery. Left ventricular systolic dysfunction with akinetic basal inferior wall and estimated ejection fraction of 35% Based on the above angiographic findings the patient will be treated with medical therapy. Patient can be ambulated later this afternoon. #2 Acute congestive heart failure: Probably systolic. * The chest x-ray as well as the natruretic peptide and the clinical signs are suggestive of the above. * Will institute oral Lasix * Echocardiogram demonstrated left ventricular systolic dysfunction with global hypokinesis and akinesis of the basal inferior wall. * #3 lactic acidosis: This is probably due to acute hypoxemia. I doubt infection, sepsis or severe sepsis. Chest x-ray showed pulmonary vascular congestion. COVID-19 is negative. At this time, no indication for IV antibiotics. Plan: Blood culture, urine culture, urinalysis. As per hospitalist and material planning analyst #4 acute hypoxic respiratory sufficiency: Secondary to #1 #2. Patient is on BiPAP. ABG revealed pH of 7.38, PCO2 of 36 and PO2 of 89. Plan for IV diuresis, continue BiPAP for now, critical care consult. #5 hyperglycemia without evidence of DKA: Admission blood glucose was 553, bicarb is 24 and anion gap is 7. No evidence of DKA. Treatment plan as per hospitalist #6 type 2 diabetes mellitus: Uncontrolled. Hemoglobin A1c was 13.3% on June,. Blood sugar is very high, no DKA. Plan as above. #7 COPD: He is on BiPAP, ABG reviewed. Plan for DuoNeb every 6 hours, continue BiPAP. #8 peripheral vascular disease: * Status post right lower extremity balloon angioplasty. Patient was on aspirin, statin and Plavix. He received 1 dose of Brilinta and aspirin in the ED. * Will continue with Plavix * Continue statins #9 hypertension: Blood pressure is on the low side but stable. Plan for IV Lasix for diuresis, lisinopril if blood pressure tolerates. #10 history of DVT: Coumadin can be restarted as an outpatient in 3 to 5 days. #11 hyperlipidemia: Continue statins. Thank you for allowing me to participate in the care of your patient. Please don't hesitate to call if any issues arise. We will follow-up in my office after discharge in 2 to 4 weeks.
--- NOTE | 2020-02-27 09:07 | CL.D_ITS ---
Patient Name: RAPHAEL HADDAD Study Date: 02/27/2020 Performing: Justin Morton MD Ht: 70.86 inches 180 cm : 1950 Wt: 216.05 lbs 98 kg Age: 69 Gender: male BSA: 2.18 PROCEDURE(S) PERFORMED [id number] CLINICAL PROFILE AND INDICATIONS Indications: Suspected CAD Heart Failure: NYHA Class: 3, Newly Diagnosed: Yes, Heart Failure Type: Systolic Stress/Imaging Stress/Image Study Performed: No CONCLUSIONS Diffuse coronary artery disease involving the left anterior descending artery and circumflex arterial system with no areas of focal high-grade stenosis. Totally occluded right coronary artery with left -to-right collaterals and a basal inferior akinetic zone. Reduced left ventricular ejection fraction estimated at 35%. RECOMMENDATIONS Medical therapy DESCRIPTION OF PROCEDURE The patient arrived to the procedure lab. The risks and benefits of the procedure as well as a full d escription of our services here and current unavailability of surgical backup were fully explained to the patient and/or their significant other prior to the catheterization. The Timeout was completed, verifying the correct patient and procedure. The patient's procedural site was prepped and draped in the usual fashion. Local anesthetic was given subcutaneously to right groin region with Lidocaine 2%. Using a modified Seldinger technique, arterial access was obtained via the right femoral artery, a 5 Fr sheath was inserted. Left Coronary Artery selective angiography was performed in multiple views u sing a 5 Fr. JL4 catheter. Right Coronary Artery selective angiography was then performed in multiple views using a 5 Fr. 3DRC (Paxton) catheter. Left Ventriculography was performed in RANDALL projection using a 5 Fr. Pigtail catheter. LV to AO pullback pressures were then recorded.Contrast was injected through the sheath and the Right Iliac and Femoral artery were assessed for possible mariela sure device.The arterial sheath was pulled and manual compression applied until hemostasis is achieve d. CORONARY ANGIOGRAPHY DOMINANCE: Co- Dominant LEFT HEART ASSESSMENT Left Ventricular Ejection Fraction: by LV Gram 35 % Inferior Basal Akinesis. Global Hypokinesis - Moderate Depressed Left Ventricular systolic function LEFT MAIN: Moderate calcification, Mild luminal irregularities less than 30% LEFT ANTERIOR DESCENDING ARTERY: Diffusely diseased up to 50 % CIRCUMFLEX ARTERY: Diffusely diseased up to 40 % RIGHT CORONARY ARTERY: PROX RCA: is occluded COLLATERAL FLOW: Collateral flow from Left to Right COMPLICATIONS No Complications PROCEDURE MEDICATIONS Versed 1 mg IV Oxygen: 2 L/min via nasal cannula SUMMARY OF HEMODYNAMIC DATA Time AIR REST ECG 08:21:56 AO 136/69 (93) SA 08:35:17 LV 127/11, 22 08:47:48 LV 126/15, 26 08:47:55 LV 123/15, 28 08:48:35 LV 123/15, 27 08:48:41 LVp 122/16, 26 08:48:46 AOp 104/61 (80) 08:48:52 Signed By Justin Morton MD On 02/27/2020 09:06:37 Justin Morton MD
--- NOTE | 2020-02-27 09:50 | DCINST_ITS ---
- Discharge Diagnoses Current Active Problems: Current Active and Chronic Problems (Last Updated 02/26/20 @ 19:36 by Che Lee) Secondary pulmonary arterial hypertension (Acute) Acute combined systolic (congestive) and diastolic (congestive) heart failure (Acute) Dilated cardiomyopathy (Acute) Essential (primary) hypertension (Chronic) Nonrheumatic aortic (valve) stenosis (Chronic) Respiratory distress (Acute) Pulmonary edema (Acute) Non-STEMI (non-ST elevated myocardial infarction) (Acute 02/25/20) Hyperglycemia (Acute) You will use the following diet at home:: Calorie/Carbohydrate Controlled (specify 1200, 1400, etc) - 1800 ADA diet, Cardiac Your food should be the consistency of: Regular Discharge Activity: May Not Drive - for 1 week Call your doctor if you observe: Fever of 101 or Higher, Coldness, Increased Pain, Inability to urinate, Inability to have a bowel movement, Shortness of breath, Dizziness, Fainting spells, Swelling in the ankles, Chest pain, Prolonged hiccoughing, Increased palpitations (irregular heartbeat), Calf discomfort, Uncontrolled pain Allergies/Adverse Reactions: Allergies No Known Allergies Allergy (Verified 01/11/20 02:57) Medications to take at Discharge Zolpidem Tartrate [Ambien] 10 mg PO QHS 11/06/15 Omeprazole [Prilosec] 40 mg PO DAILY 03/13/18 Multivitamin [Daily Multiple Vitamin] 1 ea PO DAILY 07/17/19 Potassium Chloride [Klor-Con] 20 meq PO BID 09/11/19 Ranitidine [Zantac] 300 mg PO DAILY 09/11/19 Insulin Degludec [Tresiba Flextouch U-200] 100 unit SQ QHS 02/25/20 Lisinopril [Zestril] 20 mg PO DAILY 02/25/20 Tramadol HCl [Ultram] 50 mg PO BID 02/25/20 Diltiazem CD [Cardizem CD] 180 mg PO DAILY 02/26/20 Aspirin [Aspirin, Baby] 81 mg PO DAILY@0800 #30 tab.chew 02/27/20 Baclofen [Lioresal] 5 mg PO TID PRN PRN #0 02/27/20 Carvedilol [Coreg (Beta Supriya)] 6.25 mg PO BID #60 tab 02/27/20 Clopidogrel Bisulfate [Plavix] 75 mg PO DAILY #30 tab 02/27/20 Furosemide [Lasix] 40 mg PO BID@1000,1800 #60 tab 02/27/20 Insulin Aspart [Novolog Flexpen] 35 units SUBCUT TIDCM #0 02/27/20 Rosuvastatin Calcium [Crestor] 40 mg PO QHS #30 tab 02/27/20 Warfarin [Coumadin] 5 mg PO DAILY@1700 #0 02/27/20 The following prescriptions were given: Aspirin [Aspirin, Baby] 81 mg PO DAILY@0800 #30 tab.chew Carvedilol [Coreg (Beta Supriya)] 6.25 mg PO BID #60 tab Rosuvastatin Calcium [Crestor] 40 mg PO QHS #30 tab Furosemide [Lasix] 40 mg PO BID@1000,1800 #60 tab Clopidogrel Bisulfate [Plavix] 75 mg PO DAILY #30 tab Primary Care Physician: Saurabh Hernandez Chi, MD [Primary Care Provider] - Please follow up with your Primary Care Physician in: in 1-2 week Test Results: Test results from this visit will be discussed in further detail at your follow- up appointment, if applicable. Please Follow Up With: Justin Morton MD When: in 2-3 weeks
--- NOTE | 2020-02-27 09:51 | PCM.DC.SUM ---
Discharge Date and Diagnosis - Problem List Patient Problems: Active and Suspected Problems (Last Updated 02/26/20 @ 19:36 by Che Lee) Secondary pulmonary arterial hypertension (Acute) Acute combined systolic (congestive) and diastolic (congestive) heart failure (Acute) Dilated cardiomyopathy (Acute) Respiratory distress (Acute) Pulmonary edema (Acute) Non-STEMI (non-ST elevated myocardial infarction) (Acute 02/25/20) Hyperglycemia (Acute) Date of Admission: 02/25/20 Date of Discharge: 02/27/20 - Primary Discharge Diagnosis Acute Problems: Active Problems (Last Updated 02/26/20 @ 19:36 by Che Lee) Secondary pulmonary arterial hypertension (Acute) Acute combined systolic (congestive) and diastolic (congestive) heart failure (Acute) Dilated cardiomyopathy (Acute) Respiratory distress (Acute) Pulmonary edema (Acute) Non-STEMI (non-ST elevated myocardial infarction) (Acute 02/25/20) Hyperglycemia (Acute) - Secondary Discharge Diagnosis Chronic Problems: Chronic Problems (Last Updated 02/26/20 @ 19:36 by Che Lee) Essential (primary) hypertension (Chronic) Nonrheumatic aortic (valve) stenosis (Chronic) Diabetic foot infection (Chronic) Osteomyelitis (Chronic) 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) Gangrene of toe (Chronic) Type 2 diabetes mellitus with diabetic polyneuropathy (Chronic) Ulcer of right foot with fat layer exposed (Chronic) PVD (peripheral vascular disease) (Chronic) Lumbar spinal stenosis (Chronic) Obstructive sleep apnea (Chronic) Scabies infestation (Chronic) DVT (deep venous thrombosis) (Chronic) Tobacco abuse (Chronic) GERD (gastroesophageal reflux disease) (Chronic) Neuropathy (Chronic) COPD (chronic obstructive pulmonary disease) (Chronic) Peripheral vascular disease (Chronic) Hyperlipidemia (Chronic) Erectile dysfunction (Chronic) IDDM (insulin dependent diabetes mellitus) (Chronic) Hospital Course and Treatment Operations: None, - - debridement of right foot and open hallux amputation Summary of Care Provided: [] This is a 69 years old male patient is admitted to ICU for chest pain and shortness of breath and clinical assessment consistent with acute non-ST elevation MS, acute CHF causing acute hypoxic respiratory failure, lactic acidosis and hyperglycemia without evidence of DKA. #1 acute non-ST elevation MS: Twelve-lead EKG reviewed shows [address] elevation and Q waves in single lead V1, troponin in the range of 16 consistent with non-STEMI. fire hazard inspector showed 10 beats of NSVT 2 times and PVCs. Fasting profile shows LDL 139, triglyceride 181, total cholesterol 221. Patient on rosuvastatin 40 mg daily but most probably noncompliant. Patient received 1 dose of Brilinta and aspirin in the ED. patient is on aspirin, clopidogrel, beta-supriya and DONTE inhibitor. Coreg was added. Patient home medication Cardizem CD discontinued Cardiac cath reported EF 35% with moderate global hypokinesis, inferior basal akinesis. Proximal RCA small vessel occluded left main 30%, LAD diffusely diseased up to 50%. Circumflex diffusely diseased 40%. Collateral flow from [id number]. D echo reported as: Interpretation Summary Normal LV size. Mild concentric left ventricular hypertrophy. The estimated ejection fraction is 45 %. Stage 2 diastolic dysfunction. Mild to moderate aortic stenosis. Calculated aortic valve area (continuity equation) is 1.0 cm2. Pulmonary artery systolic pressure is 45 mmHg. Mild pulmonary hypertension. #2 acute congestive heart failure: Probably systolic. BNP is elevated. On IV Lasix. Rest of medications as mentioned above #3 lactic acidosis: This is probably due to acute hypoxemia. COVID-19 PCR is negative. Leukocytosis 15,000 probably secondary to stress/non-STEMI. Lactic acidosis mainly due to hypoxemia and hypoperfusion. Repeat lactic acid normal. At this time, no indication for IV antibiotics. UA is negative except glucose 1000. Protein 30. Blood cultures x2 are pending. Urine culture shows mixed gram-positive organisms suggestive of contamination. Patient does not have new lower urinary tract symptoms. #4 acute hypoxic respiratory failure secondary to 1 and 2. Patient required 40% FiO2 on BiPAP. Currently on 30% FiO2 after diuresis. ABG revealed pH of 7.38, PCO2 of 36 and PO2 of 89. Hypoxia resolved. Pulse ox 98% on room air. #5 hyperglycemia without evidence of DKA: Admission blood glucose was 553, bicarb is 24 and anion gap is 7. No evidence of DKA. Blood sugar was controlled. Last 261. #6 type 2 diabetes mellitus: Uncontrolled. Hemoglobin A1c was 13.3% on June,. Blood sugar is very high, no DKA. Plan as above. #7 COPD:Chest x-ray as well as CTA chest independently reviewed and with nuclear physics professor. Chest x-ray shows bilateral diffuse interstitial changes with groundglass opacities small bilateral pleural effusion. CT chest shows no PE but diffuse interstitial changes with bronchiectasis, peribronchial thickening in bilateral lower lobes, small bilateral effusion and chronic bronchitis changes. Patient has smoking history, a pack per day since age of 37 and still smokes. CT chest suggestive of chronic bronchitis and lower lobes bronchiectasis. Plan for DuoNeb every 6 hours, continue BiPAP. #8 peripheral vascular disease: Status post right lower extremity balloon angioplasty. Patient also had MRSA infected wound in the left lower leg in the past. Patient was on aspirin, statin and Plavix. #9 hypertension: Blood pressure is on the low side but stable. 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 #11 history of DVT: Currently on Coumadin, INR 1.8. #12 hyperlipidemia: Continue statins. #13 CODE STATUS: Full code, discussed with the patient. #14 DVT prophylaxis: Bilateral SCDs Discharge medication reconciliation done. Discharge follow-up instructions completed. Discharge process discussed with the patient and all questions were answered to patient's satisfaction. Prescription sent to the patient's pharmacy. Total time spent, exact 35 minutes on discharge meds reconciliation, examination, coordination of care with nurses and ancillary staff, review of imaging and blood test and discussion with the patient on follow-up instructions Patient Problems: Active and Suspected Problems (Last Updated 02/26/20 @ 19:36 by Che Lee) Secondary pulmonary arterial hypertension (Acute) Acute combined systolic (congestive) and diastolic (congestive) heart failure (Acute) Dilated cardiomyopathy (Acute) Respiratory distress (Acute) Pulmonary edema (Acute) Non-STEMI (non-ST elevated myocardial infarction) (Acute 02/25/20) Hyperglycemia (Acute) Objective: Seen and examined. Blood pressure and heart rate is controlled. Sinus rhythm. Patient had a heart cath today. Physical exam General: Alert, Oriented x3, Cooperative HEENT: Atraumatic, PERRLA, EOMI, Normocephalic Oral: No Gingival or Mucosal Lesions/ Ulcerations Neck: Supple, No JVD, Negative Carotid Bruits Lungs: Air entry diminished in bilateral lung bases. No crepitation/rhonchi Cardiovascular: Regular rate, Regular Rhythm, Normal S1, Normal S2, No murmurs. fire hazard inspector shows PVC. Abdomen: Bowel Sounds Present, Soft, Non Tender, Non-Distended : No renal angle tenderness. No suprapubic tenderness. Extremities: No edema, Capillary Refill Less than 3 Seconds Skin: No rashes, No breakdown Musculoskeletal: No Tenderness to Palpation of Joints or Extremities Neurological: Cranial nerves II-XII grossly intact, Deep Tendon Reflexes 2+/4 and Symmetrical, Neuro grossly intact Psych/Mental Status: Normal Affect, Appropriate. - Physical Exam Vitals/I&O's: Vital Signs Temp Pulse Resp BP Pulse Ox 97.9 F 92 20 H 109/68 98 02/27/20 09:20 02/27/20 09:50 02/27/20 09:50 02/27/20 09:50 02/27/20 09:50 Oxygen Flow Rate (L/min) 1 Oxygen Delivery Method Room Air Weight: 215 lb 2.738 oz Body Mass Index (BMI) 29.9 Finger Stick Blood Glucose 539 Intake and Output for Last 24 Hours 02/25/20 02/26/20 02/27/20 23:59 23:59 23:59 Intake Total 1364 / 1364 0 / 0 Output Total 3900 / 3900 250 / 250 Balance -2536 / -2536 -250 / -250 Microbiology Past 72 Hours 02/26/20 00:15 Urine, Clean Catch Urine Culture - Final Mixed Gram Positive Organisms Laboratory Results 02/26/20 12:21: POC Glucose 335 H 02/26/20 16:48: POC Glucose 349 H 02/26/20 22:03: POC Glucose 315 H 02/27/20 05:20: Sodium 137, Potassium 3.8, Chloride 104, Carbon Dioxide 27.0, Anion Gap 6, BUN 21 H, Creatinine 0.74, Estim Creat Clear Calc 76.35, Est GFR (MDRD) Af Amer 135, Est GFR (MDRD) Non-Af 112, BUN/Creatinine Ratio 28.3 H, Glucose 256 H, Calcium 8.6, Magnesium 1.8, Triglycerides 181, Cholesterol 221 H, LDL Cholesterol 139 H, VLDL Cholesterol 36, HDL Cholesterol 46, TSH 1.17 02/27/20 05:20: WBC 7.6, RBC 4.15 L, Hgb 11.6 L, Hct 36.4 L, MCV 87.7, MCH 28.0, MCHC 31.9 L, RDW Std Deviation 44.8 H, RDW Coeff of Estrada 14.0, Plt Count 258, MPV 10.5, Immature Gran % (Auto) 0.400, Neut % (Auto) 63.8, Lymph % (Auto) 26.3, [place] % (Auto) 7.9, Eos % (Auto) 1.2, Baso % (Auto) 0.4, Absolute Neuts (auto) 4.9, Absolute Lymphs (auto) 2.00, Nucleated RBC % 0 02/27/20 06:25: PT 16.6 H, INR 1.4 02/27/20 06:33: POC Glucose 271 H Current Medications Acetaminophen (Tylenol) 650 mg PO Q6H PRN PRN PRN Reason: Pain Score 1-10/Temp > 100.7 F Last Admin: 02/26/20 12:27 Dose: 650 mg Documented by: Albuterol/Ipratropium (Duoneb) 3 ml INHALATION Q4H.RT PRN PRN Reason: SOB &/OR WHEEZING Aspirin (Aspirin, Baby) 81 mg PO DAILY@0800 COUNTS INCLUDE 234 BEDS AT THE [facility] Last Admin: 02/27/20 06:32 Dose: 81 mg Documented by: Atorvastatin Calcium (Lipitor) 40 mg PO QHS COUNTS INCLUDE 234 BEDS AT THE [facility] Last Admin: 02/26/20 22:10 Dose: 40 mg Documented by: Baclofen (Lioresal) 5 mg PO TID PRN PRN Reason: MUSCLE SPASM Carvedilol (Coreg) 6.25 mg PO BID COUNTS INCLUDE 234 BEDS AT THE [facility] Clopidogrel Bisulfate (Plavix) 75 mg PO DAILY COUNTS INCLUDE 234 BEDS AT THE [facility] Dextrose (D50w Syringe) 0 gm IV X1 PRN; Protocol PRN Reason: Hypoglycemia Protocol Furosemide (Lasix) 40 mg PO BID@1000,1800 COUNTS INCLUDE 234 BEDS AT THE [facility] Heparin Sodium (Beef Lung) (Heparin 500 Unit/5 Ml (100/Ml)) 500 unit IV UD PRN PRN Reason: HEPARIN FLUSH Sodium Chloride () 250 mls @ 15 mls/hr IV .[id number] PRN PRN Reason: Saline Flush Sodium Chloride () 1,000 mls @ 15 mls/hr IV .Q48H COUNTS INCLUDE 234 BEDS AT THE [facility] Last Admin: 02/27/20 09:38 Dose: Not Given Documented by: Insulin Human Lispro (Humalog Kwikpen (Bkc)) 0 unit SC ACHS COUNTS INCLUDE 234 BEDS AT THE [facility]; Protocol Last Admin: 02/27/20 06:32 Dose: Not Given Documented by: Labetalol HCl (Trandate) 5 mg IV X1 PRN PRN Reason: SBP > 160 prior to sheath pull Stop: 02/29/20 08:55 Lisinopril (Zestril) 20 mg PO DAILY ARIA Last Admin: 02/27/20 06:32 Dose: 20 mg Documented by: Ondansetron HCl (Zofran) 4 mg IV Q8H PRN PRN PRN Reason: NAUSEA/VOMITING Sodium Chloride () 10 - 40 ml IV UD PRN PRN Reason: SALINE FLUSH Last Admin: 02/26/20 13:55 Dose: 10 ml Documented by: Tramadol HCl (Ultram) 50 mg PO BID PRN PRN Reason: Pain Score 6-1010 Zolpidem Tartrate (Ambien (Generic)) 10 mg PO QHS PRN PRN Reason: INSOMNIA Discharge Activity: May Not Drive - for 1 week Call your doctor if you observe: Fever of 101 or Higher, Coldness, Increased Pain, Inability to urinate, Inability to have a bowel movement, Shortness of breath, Dizziness, Fainting spells, Swelling in the ankles, Chest pain, Prolonged hiccoughing, Increased palpitations (irregular heartbeat), Calf discomfort, Uncontrolled pain Home Medications: Medications to take at Discharge Zolpidem Tartrate [Ambien] 10 mg PO QHS 11/06/15 Omeprazole [Prilosec] 40 mg PO DAILY 03/13/18 Multivitamin [Daily Multiple Vitamin] 1 ea PO DAILY 07/17/19 Potassium Chloride [Klor-Con] 20 meq PO BID 09/11/19 Ranitidine [Zantac] 300 mg PO DAILY 09/11/19 Insulin Degludec [Tresiba Flextouch U-200] 100 unit SQ QHS 02/25/20 Lisinopril [Zestril] 20 mg PO DAILY 02/25/20 Tramadol HCl [Ultram] 50 mg PO BID 02/25/20 Aspirin [Aspirin, Baby] 81 mg PO DAILY@0800 #30 tab.chew 02/27/20 Baclofen [Lioresal] 5 mg PO TID PRN PRN #0 02/27/20 Carvedilol [Coreg (Beta Supriya)] 6.25 mg PO BID #60 tab 08/12/20 Clopidogrel Bisulfate [Plavix] 75 mg PO DAILY #30 tab 02/27/20 Furosemide [Lasix] 40 mg PO BID@1000,1800 #60 tab 02/27/20 Insulin Aspart [Novolog Flexpen] 35 units SUBCUT TIDCM #0 02/27/20 Rosuvastatin Calcium [Crestor] 40 mg PO QHS #30 tab 02/27/20 Warfarin [Coumadin] 5 mg PO DAILY@1700 #0 02/27/20 Following Prescriptions Were Given to Patient: Aspirin [Aspirin, Baby] 81 mg PO DAILY@0800 #30 tab.chew Transmission Status: Received by [employer] #30 Carvedilol [Coreg (Beta Supriya)] 6.25 mg PO BID #60 tab Transmission Status: Received by [employer] #30 Rosuvastatin Calcium [Crestor] 40 mg PO QHS #30 tab Transmission Status: Received by [employer] #30 Furosemide [Lasix] 40 mg PO BID@1000,1800 #60 tab Transmission Status: Received by [employer] #30 Clopidogrel Bisulfate [Plavix] 75 mg PO DAILY #30 tab Transmission Status: Received by [employer] #30 Primary Care Physician: Saurabh Hernandez Chi, MD [Primary Care Provider] - Please follow up with your Primary Care Physician in: in 1-2 week Please Follow Up With: Justin Morton MD When: in 2-3 weeks Medical Necessity - Tobacco Use Smoking Status: Light Smoker (<10/day) Tobacco Use: Cigarettes Meaningful Use Info Meaningful Use Diagnoses (Choose all that apply): AMI - AMI/Post PCI/Angioplasty Aspirin given w/in 24hrs of arrival?: Yes ASA at discharge?: Yes Antiplatelet Therapy at Discharge:: Yes Statins at discharge?: Yes Donte/ARB at discharge?: Yes Beta Supriya at discharge?: Yes Done w/ Acute MS measure.: Yes Documented LVEF (%): 45 Inpatient E&M: 85772 Disch Hosp
[2020-02-27] MEDS: Furosemide 40 MG Tablet PO (10:33)
[2020-02-27] MEDS: Carvedilol 6.25 MG Tablet PO (10:33)
[2020-02-27] MEDS: Insulin Lispro 100 UNIT/ML INSULN.PEN SC (10:37)
[2020-02-27 11:01] LABS: Bedside Glucose 261 mg/dL (70-110)
--- NOTE | 2020-02-27 12:33 | CASEMGMT ---
Addendum entered by Marlen Levin 02/27/20 12:39: Below conversation w/appt was @ 1093. Original Note: RN HIEN NOTE: Discharge order is in. Pt to be discharged after bedrest completed. RN CM to room to talk with pt. Introduced self and role of HERMINIA STANFORD. Discussed discharge planning with pt. Pt denies need for HHC or OP therapy. He was made aware, if in the future, he feels he would benefit from/need either, to talk with his PCP about this. Pt voices understanding. Pt denies need for any DME or any other needs/concerns. He states he feels he will be able to navigate the 13 steps into his home w/out difficulty. PT/OT evals pending. Pt made aware and states he does not feel he needs this completed and just wishes to return home after bedrest completed. Therapy staff made aware. He states he is trying to contact his cousin to pick him up to take him home but he is not sure if he can reach her. He was made aware that [facility] Van transportation may be available if needed and instructed him to let his nurse know if he cannot reach his cousin. RN, Paula, made aware of same. Yehuda HENDERSON RN CM
--- NOTE | 2020-02-27 14:26 | NURSING ---
Heart cath bedrest complete. Ambulated patient in halls without issue. Dressing remains c/d/i.
--- NOTE | 2020-02-27 14:54 | PHA.DC.MC ---
Pharmacy Service has performed discharge medication reconciliation and counseling for this patient. 1. ASPIRIN 81MG PO DAILYCM 2. CARVEDILOL 6.25MG PO BID 3. CLOPIDOGREL 75MG PO DAILY 4. FUROSEMIDE 40MG PO BID 5. ROSUVASTATIN 40MG PO QHS The patient's discharge medication list was reviewed for discrepancies and discrepancies were resolved. Home Medications Zolpidem Tartrate [Ambien] 10 mg PO QHS 11/06/15 Omeprazole [Prilosec] 40 mg PO DAILY 03/13/18 Multivitamin [Daily Multiple Vitamin] 1 ea PO DAILY 07/17/19 Potassium Chloride [Klor-Con] 20 meq PO BID 09/11/19 Ranitidine [Zantac] 300 mg PO DAILY 09/11/19 Insulin Degludec [Tresiba Flextouch U-200] 100 unit SQ QHS 02/25/20 Lisinopril [Zestril] 20 mg PO DAILY 02/25/20 Tramadol HCl [Ultram] 50 mg PO BID 02/25/20 Diltiazem CD [Cardizem CD] 180 mg PO DAILY 02/26/20 Aspirin [Aspirin, Baby] 81 mg PO DAILY@0800 #30 tab.chew 02/27/20 Baclofen [Lioresal] 5 mg PO TID PRN PRN #0 02/27/20 Carvedilol [Coreg (Beta Supriya)] 6.25 mg PO BID #60 tab 02/27/20 Clopidogrel Bisulfate [Plavix] 75 mg PO DAILY #30 tab 02/27/20 Furosemide [Lasix] 40 mg PO BID@1000,1800 #60 tab 02/27/20 Insulin Aspart [Novolog Flexpen] 35 units SUBCUT TIDCM #0 02/27/20 Rosuvastatin Calcium [Crestor] 40 mg PO QHS #30 tab 02/27/20 Warfarin [Coumadin] 5 mg PO DAILY@1700 #0 02/27/20 The patient was counseled on the following discharge medications and changes in medications for homegoing were reviewed. The Reason for Use, instructions for use, and potential side effects were reviewed for all new medications. The patient's questions regarding all of their medications were answered. The patient was able to verbally demonstrate an understanding of their discharge medications. Patient counseled by pharmacy helper, Henrietta.
--- NOTE | 2020-02-27 15:13 | CASEMGMT ---
SW completed a Palliative care screening tool on patient. He scored a 4. SW did not talk with patient about Palliative Care at this time. Ashlyn ROBERTS MSW
--- NOTE | 2020-02-28 14:59 | CASEMGMT ---
HERMINIA STANFORD Discharge Follow-Up Phone Call. Lace: 12 Strata: 3 Discharge Date: 02/27/20 Adm Dx: Acute NSTEMI, Acute CHF, Hyperglycemia. Attempted discharge follow-up phone call. No answer and got a busy signal after 2 rings. Attempted again and heard the same thing. Unable to leave a VM message. Yehuda HENDERSON RN CM
== END 2020-02-27 15:25 | disposition home or self-care (01) | DRG 280 ==
LOC: ED 18:25 → ICU 20:20 → PCU 02-26 16:44
PROVIDERS: Hospitalist; Internal Medicine Cardiovascular Disease; Admitting Provider Hospitalist; Emergency Provider Emergency Medicine; PCP Family Medicine Geriatric Medicine; Visit Provider Internal Medicine
DX: I21.4 Non-ST elevation (NSTEMI) myocardial infarction (principal); I50.41 Acute combined systolic (congestive) and diastolic (congestive) heart failure; J96.01 Acute respiratory failure with hypoxia; I11.0 Hypertensive heart disease with heart failure; I25.10 Atherosclerotic heart disease of native coronary artery without angina pectoris; E78.5 Hyperlipidemia, unspecified; E11.42 Type 2 diabetes mellitus with diabetic polyneuropathy; F17.210 Nicotine dependence, cigarettes, uncomplicated; K21.9 Gastro-esophageal reflux disease without esophagitis; J44.9 Chronic obstructive pulmonary disease, unspecified; E11.51 Type 2 diabetes mellitus with diabetic peripheral angiopathy without gangrene; I27.21 Secondary pulmonary arterial hypertension; G47.33 Obstructive sleep apnea (adult) (pediatric); E11.65 Type 2 diabetes mellitus with hyperglycemia; Z86.14 Personal history of Methicillin resistant Staphylococcus aureus infection; Z89.431 Acquired absence of right foot; Z86.718 Personal history of other venous thrombosis and embolism
CPT/HCPCS: 36415; 36600; 71045; 71275; 80048; 80053; 80061; 81001; 82009; 82803; 82962; 83605; 83735; 83880; 84443; 84484; 85025; 85610; 87040; 87086; 87088; 87635; 93005; 93306; 93458; 94002; 94003; 94640; 94762; 94799; 99152; 99153; 99285; 99406; J7030; Q9957; Q9967; A4216; C1769; C8929; J1940; U0003

== ENCOUNTER 2020-03-11 13:56 | Inpatient (IN) | payer MEDICARE, SELFPAY ==
[2020-02-25 21:22] VITALS: BMI 29.9
[2020-03-11] VITALS (8 sets, daily range): BP systolic 104–124; BP diastolic 62–76; PULSE 79–101; RESP 15–20; TEMP 36.6–36.8; O2SAT 92–99; BMI 31.3; BMI 30.1; BMI 30.2
--- NOTE | 2020-03-11 14:25 | CT_ITS ---
STUDY: CT BRAIN WITHOUT CONTRAST REASON FOR EXAM: Male, 69 years old. CONFUSION/FOUND UNRESPONSIVE RADIATION DOSAGE (If Supplied By Facility): CTDIvol = ( 60.81 ) mGy, DLP = ( 1044.28 ) mGycm TECHNIQUE: Transaxial CT imaging of the brain was performed without administration of intravenous contrast material. Individualized dose optimization techniques were used for this CT. COMPARISON: No relevant priors. FINDINGS: Normal soft tissue structures. Normal calvarium. Normal size ventricles and extra-axial spaces for the patient''s age. There are areas of decreased attenuation within the white matter tracts of the supratentorial brain, consistent with microvascular disease changes. There are small punctate calcifications of the basal ganglia which are seen in the aging brain as a normal variant. 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 Normal brainstem. Normal cerebellum. There is no intracranial hemorrhage. There are no findings of an acute ischemic infarction. Mucosal thickening of the maxillary sinuses more prominent on the left side as well as ethmoid sinuses. CT/Brain/Head without Contrast IMPRESSION: Chronic involutional changes of the brain. Electronically Signed: Lázaro Archer, at 15:36 EDT , Service support ,
--- NOTE | 2020-03-11 14:26 | EKG12_ITS ---
Test Reason : WEAKNESS Blood Pressure : / mmHG Vent. Rate : 087 BPM Atrial Rate : 087 BPM P-R Int : 166 ms QRS Dur : 096 ms QT Int : 378 ms P-R-T Axes : 036 014 116 degrees QTc Int : 454 ms Sinus rhythm with occasional Premature ventricular complexes Possible Left atrial enlargement Possible Inferior infarct , age undetermined T wave abnormality, consider anterolateral ischemia Abnormal ECG Confirmed by WAQAS SUE ([id number]), make up editor GORGE HILL ([id number]) on 03/13/2020 9:00:03 AM Referred By: CT Confirmed By:WAQAS SUE
--- NOTE | 2020-03-11 14:26 | RAD_ITS ---
STUDY: X-RAY CHEST REASON FOR EXAM: Male, 69 years old. Found unresponsive in the bathroom TECHNIQUE: Single AP portable view of the chest. COMPARISON: Comparison is made with prior examination of 02/25/2020. FINDINGS: EKG electrodes are seen. The lungs are clear and expanded. There is no demonstrated pleural abnormality. Normal size heart. Normal mediastinum and thu. Normal visualized pulmonary arteries. Normal visualized aortic arch and descending thoracic aorta. There are diffuse degenerative changes of the visualized thoracic spine. Normal visualized ribs, clavicles, and shoulders. There is no demonstrated abnormality of the visualized soft tissue structures of the upper abdomen. RAD/Chest 1 View (Portable) IMPRESSION: No acute abnormality is present. Electronically Signed: Lázaro Archer, at 15:37 EDT , Service support ,
--- NOTE | 2020-03-11 14:27 | ED.VIS.GEN ---
History of Present Illness Chief Complaint: Hypoglycemia Narrative: 69-year-old male brought in by EMS with concern for hypoglycemia. By bystander in the bathroom he began CPR. Was found to have blood sugar of 30. Was given D50 and resolution of altered mental status. Patient states that he has no complaints at this time. Has had no issues with hypoglycemia in the past. Was recently admitted to the hospital for SC. Past Medical History - Allergies and Home Meds Allergies/Adverse Reactions: Allergies No Known Allergies Allergy (Verified 03/11/20 14:06) Past Medical History: - - ADD, hypertension, diabetes Surgical History: - - Lumbar laminectomy and fusion x 2, LLE surgery for clot retrieval with follow-up I&D x2 for infection, recent right great toe surgery as well as follow-up balloon angioplasties per vascular surgery during recent admission. Lives: Alone Smoking Status: Unknown if ever smoked Alcohol: None Drugs: None - Family History Paternal Family History: Reports: Diabetes Maternal Family History: Reports: Diabetes, Heart Disease, Hypertension, - - History of brain aneurysms. Review of Systems General: Denies: Chills, Fever, Sweats Eyes: Denies: Visual changes - bilaterally, Diplopia ENT: Denies: Rhinorrhea, Sore throat Cardiovascular: Denies: Chest pain, Palpitations Respiratory: Denies: Dyspnea, Cough, Dyspnea on exertion Gastrointestinal: Denies: Abdominal pain, Nausea, Vomiting, Diarrhea, Melena, Hematochezia Genitourinary: Denies: Dysuria, Hematuria, Frequency Musculoskeletal: Denies: Back pain, Extremity Pain Skin: Denies: Rash, Wounds Neurological: Denies: Headache, Weakness, Numbness Physical Exam Vital Signs/Narrative: Vital Signs Temp Pulse Resp BP Pulse Ox 03/11/20 14:19 95 16 109/70 92 03/11/20 14:01 97.8 F 101 H 18 105/66 94 Inital Vital Signs reviewed: Yes General: Well nourished, Well developed, Obese, No Acute Distress Head: Normocephalic, Atraumatic Eyes: Perrl, EOMI ENT: Moist mucous membranes, No rhinorrhea Neck: Supple, Nontender Cardiovascular: Regular rate, Regular rhythm, No murmurs Respiratory: No distress, CTA bilaterally, Chest nontender Abdomen: Soft, Nontender, Nondistended, Normal bowel sounds Back: Nontender, Normal Inspection Extremities: Nontender, No edema Skin: Normal color, No rash, - - Diffuse what appear to be insect bites. Neurological: Alert, Oriented x3, Cranial nerves II-XII grossly intact, Normal Strength, Normal Sensation Psychological: Normal affect, Normal Mood Diagnostic/Tx/Re-eval Chest X-Ray - ED: 1 View, Normal Clinical Impression(s) from Imaging Studies Brain CT 03/11/20 14:25 IMPRESSION: Chronic involutional changes of the brain. Electronically Signed: Lázaro Suzi, at 15:36 EDT , Service support , Chest X-Ray 03/11/20 14:26 IMPRESSION: No acute abnormality is present. Electronically Signed: Lázaro Suzi, at 15:37 EDT , Service support , Laboratory Data 03/11/20 03/11/20 03/11/20 14:09 14:15 14:15 WBC 8.4 RBC 4.28 L Hgb 11.9 L Hct 37.6 L MCV 87.9 MCH 27.8 MCHC 31.6 L RDW Std Deviation 45.7 H RDW Coeff of Estrada 14.3 Plt Count 300 MPV 9.8 Immature Gran % (Auto) 1.000 H Neut % (Auto) 77.5 H Lymph % (Auto) 13.1 L [place] % (Auto) 7.5 Eos % (Auto) 0.5 Baso % (Auto) 0.4 Absolute Neuts (auto) 6.5 Absolute Lymphs (auto) 1.10 Nucleated RBC % 0 Sodium 143 Potassium 3.3 L Chloride 111 H Carbon Dioxide 26.0 Anion Gap 6 BUN 12 Creatinine 0.67 L Estim Creat Clear Calc 76.35 Est GFR (MDRD) Af Amer 151 Est GFR (MDRD) Non-Af 125 BUN/Creatinine Ratio 17.8 Glucose 81 Calcium 8.5 Total Bilirubin 0.50 AST 38 H ALT 30 Alkaline Phosphatase 89 Troponin I 0.046 H Total Protein 6.8 Albumin 3.1 L Globulin 3.7 Albumin/Globulin Ratio 0.8 L Ethyl Alcohol POC Glucose 91 03/11/20 03/11/20 03/11/20 14:15 14:35 15:03 WBC RBC Hgb Hct MCV MCH MCHC RDW Std Deviation RDW Coeff of Estrada Plt Count MPV Immature Gran % (Auto) Neut % (Auto) Lymph % (Auto) [place] % (Auto) Eos % (Auto) Baso % (Auto) Absolute Neuts (auto) Absolute Lymphs (auto) Nucleated RBC % Sodium Potassium Chloride Carbon Dioxide Anion Gap BUN Creatinine Estim Creat Clear Calc Est GFR (MDRD) Af Amer Est GFR (MDRD) Non-Af BUN/Creatinine Ratio Glucose Calcium Total Bilirubin AST ALT Alkaline Phosphatase Troponin I Total Protein Albumin Globulin Albumin/Globulin Ratio Ethyl Alcohol 4.0 POC Glucose 63 L 151 H 03/11/20 16:14 WBC RBC Hgb Hct MCV MCH MCHC RDW Std Deviation RDW Coeff of Estrada Plt Count MPV Immature Gran % (Auto) Neut % (Auto) Lymph % (Auto) [place] % (Auto) Eos % (Auto) Baso % (Auto) Absolute Neuts (auto) Absolute Lymphs (auto) Nucleated RBC % Sodium Potassium Chloride Carbon Dioxide Anion Gap BUN Creatinine Estim Creat Clear Calc Est GFR (MDRD) Af Amer Est GFR (MDRD) Non-Af BUN/Creatinine Ratio Glucose Calcium Total Bilirubin AST ALT Alkaline Phosphatase Troponin I Total Protein Albumin Globulin Albumin/Globulin Ratio Ethyl Alcohol POC Glucose 96 - Rhythm Strip Rhythm Strip: Sinus Rhythm Rate: 87 Ectopy: None - EKG Initial EKG Interpretation: Sinus Rhythm - This rhythm at 87 bpm. RI interval of 166 ms. QTC of 454 ms. T wave abnormalities in the anterior leads including V2 and V3. Patient also has concern for possible depression with T wave inversion in the lateral leads. No definitive elevation. - Medical Decision Making Appears unkempt but otherwise nontoxic. Chest x-ray CT brain are both negative. Lab work shows a indeterminate troponin likely secondary to CPR. Patient was given aspirin and had his potassium replaced. Patient initially found to have glucose of 90 which was checked at 60. Patient was given D10. On reevaluation patient is mentating and has a glucose of 150. Given the patient's persistent hypoglycemia he will be admitted to the hospitalist service. Spoke with Dr. Gutierrez agreeable with this plan and patient was admitted in stable condition. Impression: 1. Hypoglycemia 2. Altered mental status 3. CPR 4. Hypokalemia ED Disposition - Plan for ED Patient: Disposition: Acute Care Hospital [facility]
[2020-03-11 14:37] LABS: Absolute Neutrophil Count 6.5 X10^3/uL (2.0-7.7); Basophil# 0.03 X10^3/uL; Basophil% 0.4 % (0-1); Eosinophil# 0.04 X10^3/uL; Eosinophils% 0.5 % (0-5); Hematocrit 37.6 % (40-54); Hemoglobin 11.9 g/dL (13.0-16.5); Lymphocyte % 13.1 % (19-41); Mean Corp Hgb Conc 31.6 g/dL (32-36); Mean Corpuscular Hgb 27.8 pg (27.0-32.0); Mean Corpuscular Volume 87.9 fL (80-94); Mean Platelet Vol. 9.8 fl (6.2-12.0); Monocyte# 0.63 X10^3/uL; Monocyte% 7.5 % (0-10); NRBC Flagged by Analyzer 0 % (0-5); Neutrophil # 6.54 X10^3/uL (2.7-7.7); Neutrophil % 77.5 % (47-70); Platelet Count 300 K/mm3 (150-450); RBC Distribution Width CV 14.3 % (11.6-14.6); RBC Distribution Width SD 45.7 fl (35.1-43.9); Red Blood Count 4.28 M/mm3 (4.6-6.2); White Blood Count 8.4 K/mm3 (4.4-11.0)
[2020-03-11 14:46] LABS: Bedside Glucose 63 mg/dL (70-110)
[2020-03-11 14:46] LABS: Bedside Glucose 91 mg/dL (70-110)
[2020-03-11] MEDS: Dextrose 10%-Water 250 ML 40 ML IV (14:50)
[2020-03-11] MEDS: Dextrose 50%-Water 25 GM/50 ML DISP.SYRIN IV ×2 (14:51→18:54)
[2020-03-11 14:54] LABS: ALB/GLOB Ratio 0.8 RATIO (0.9-2.4); AST(SGOT) 38 U/L (15-37); Alanine Aminotransfer ALT/SGPT 30 U/L (16-61); Albumin, Serum 3.1 g/dL (3.2-5.0); Alkaline Phosphatase 89 U/L (45-117); Anion Gap 6 (5-15); BUN 12 mg/dL (7-18); BUN/Creat Ratio 17.8 RATIO (10-20); Calcium,Total 8.5 mg/dL (8.5-10.1); Chloride 111 mmol/L (98-107); Creatinine, Serum 0.67 mg/dL (0.70-1.30); EST Glomerular Filtration Rate 125 mL/min (>60); Est Glom Filt Rate - Afr Amer 151 mL/min (>60); Estimated Creatinine Clearance 76.35 ml/min; Globulin 3.7 g/dL (2.2-4.2); Glucose 81 mg/dL (74-106); Potassium 3.3 mmol/L (3.5-5.1); Protein, Total 6.8 g/dL (6.4-8.2); Sodium Level 143 mmol/L (136-145)
[2020-03-11 15:06] LABS: Bedside Glucose 151 mg/dL (70-110)
[2020-03-11] MEDS: Aspirin 81 MG TAB.CHEW 324 MG PO (15:53)
--- NOTE | 2020-03-11 15:55 | NURSING ---
PCU HYPOGLYCEMIA KITTOE
[2020-03-11 16:20] LABS: Bedside Glucose 96 mg/dL (70-110)
--- NOTE | 2020-03-11 16:26 | HP.PCM_ITS ---
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 (6) Ischemic cardiomyopathy Status: Chronic (7) Nonrheumatic aortic (valve) stenosis Status: Chronic (8) Secondary pulmonary arterial hypertension Status: Chronic (9) Essential (primary) hypertension Status: Chronic (10) Peripheral vascular disease Status: Chronic (11) Hyperlipidemia Status: Chronic Qualifiers: Hyperlipidemia type: unspecified Qualified Code(s): E78.5 - Hyperlipidemia, unspecified (12) Nicotine dependence Status: Chronic (13) COPD (chronic obstructive pulmonary disease) Status: Chronic Qualifiers: Emphysema type: unspecified (14) Obstructive sleep apnea Status: Chronic History of Present Illness Date of Admission: 03/11/20 Chief Complaint: Unresponsiveness The patient is a 69 year old M with multiple comorbidities including diabetes mellitus type 2, recent diagnosis of acute non-STEMI for which patient underwent left heart catheterization on 02/27/2020 patient was found to have EF 35% with moderate global hypokinesis, inferior basal akinesis. Proximal RCA small vessel occluded left main 30%, LAD diffusely diseased up to 50%. Circumflex diffusely diseased 40% optimization of medical therapy was advised. Patient was apparently found unresponsive by a neighbor in his bathroom. CPR was initiated the EMS squad was called. EMS upon arrival found patient with blood glucose level of 33. Was started on dextrose and fed to the ED. In the emergency department patient hypoglycemia was confirmed. He was also found to have slightly elevated troponin. She was started on D10 and admitted to monitored bed Past Medical History Past Medical History (Chronic Problems): Chronic Problems (Last Reviewed 03/11/20 @ 16:[address] Jose Gutierrez MD) Lumbar spinal stenosis (Chronic) Atherosclerosis of coronary artery without angina pectoris (Chronic) Acute combined systolic (congestive) and diastolic (congestive) heart failure (Chronic) Ischemic cardiomyopathy (Chronic) Nonrheumatic aortic (valve) stenosis (Chronic) Secondary pulmonary arterial hypertension (Chronic) Essential (primary) hypertension (Chronic) Peripheral vascular disease (Chronic) Hyperlipidemia (Chronic) Nicotine dependence (Chronic) COPD (chronic obstructive pulmonary disease) (Chronic) Obstructive sleep apnea (Chronic) Medical History: Medical History (Last Reviewed 03/11/20 @ 16:[address] Jose Gutierrez MD) Lumbar spinal stenosis (Chronic) M48.06 Non-STEMI (non-ST elevated myocardial infarction) (Resolved) Onset Date: 02/25/20 I21.4 Acute combined systolic (congestive) and diastolic (congestive) heart failure (Chronic) I50.41 Ischemic cardiomyopathy (Chronic) I25.5 Nonrheumatic aortic (valve) stenosis (Chronic) I35.0 Secondary pulmonary arterial hypertension (Chronic) I27.21 Essential (primary) hypertension (Chronic) I10 Peripheral vascular disease (Chronic) I73.9 Hyperlipidemia (Chronic) E78.5 Nicotine dependence (Chronic) F17.200 COPD (chronic obstructive pulmonary disease) (Chronic) J44.9 Obstructive sleep apnea (Chronic) G47.33 Back problem M53.9 Bleeding disorder D69.9 DVT (deep venous thrombosis) Diabetic foot infection E11.628, L08.9 Erectile dysfunction N52.9 GERD (gastroesophageal reflux disease) K21.9 Gangrene of toe I96 IDDM (insulin dependent diabetes mellitus) E11.9, Z79.4 Neuropathy G62.9 Osteomyelitis M86.9 Scabies infestation Tobacco abuse Z72.0 Type 2 diabetes mellitus with diabetic polyneuropathy E11.42 Type 2 diabetes mellitus with diabetic polyneuropathy E11.42 Ulcer of right foot with fat layer exposed L97.512 Ulcer of right foot with necrosis of bone L97.514 Hyperglycemia R73.9 Pulmonary edema J81.1 Respiratory distress R06.03 Allergies No Known Allergies Allergy (Verified 03/11/20 14:06) Home Medications: Ambulatory Orders Medication Instructions Recorded Zolpidem Tartrate [Ambien] 10 mg PO QHS 11/06/15 Omeprazole [Prilosec] 40 mg PO DAILY 03/13/18 Multivitamin [Daily Multiple 1 ea PO DAILY 07/17/19 Vitamin] Potassium Chloride [Klor-Con] 20 meq PO BID 09/11/19 Ranitidine [Zantac] 300 mg PO DAILY 09/11/19 Insulin Degludec [Tresiba 100 unit SQ QHS 02/25/20 Flextouch U-200] Lisinopril [Zestril] 20 mg PO DAILY 02/25/20 Tramadol HCl [Ultram] 50 mg PO BID 02/25/20 Aspirin [Aspirin, Baby] 81 mg PO DAILY@0800 #30 tab.chew 02/27/20 Baclofen [Lioresal] 5 mg PO TID PRN PRN #0 02/27/20 Carvedilol [Coreg (Beta Supriya)] 6.25 mg PO BID #60 tab 02/27/20 Clopidogrel Bisulfate [Plavix] 75 mg PO DAILY #30 tab 02/27/20 Furosemide [Lasix] 40 mg PO BID@1000,1800 #60 tab 02/27/20 Insulin Aspart [Novolog Flexpen] 35 units SUBCUT TIDCM #0 02/27/20 Rosuvastatin Calcium [Crestor] 40 mg PO QHS #30 tab 02/27/20 Warfarin [Coumadin] 5 mg PO DAILY@1700 #0 02/27/20 Surgical History: Surgical History (Last Reviewed 03/11/20 @ 16:[address] Jose Gutierrez MD) History of left heart catheterization Onset Date: 02/27/20 Z98.890 Surgical History: - - Lumbar laminectomy and fusion x 2, LLE surgery for clot retrieval with follow-up I&D x2 for infection, recent right great toe surgery as well as follow-up balloon angioplasties per vascular surgery during recent admission. Psychiatric History: No pertinent psych hx Lives: Alone Smoking Status: Unknown if ever smoked Alcohol: None Drugs: None - *Family History Paternal History Items: Diabetes Maternal History Items: Diabetes, Heart Disease, Hypertension, - - History of brain aneurysms. Review of Systems Constitutional: Reports: Weakness, Fatigue HEENT: Denies: Head Aches, Sinus Congestion, Sinus Drainage Cardiovascular: Denies: Chest Pain, Orthopnea, Palpitations, Paroxysmal Noc. Dyspnea Respiratory: Reports: Cough Gastrointestinal: Denies: Abdominal Pain, Hematemesis, Hematochezia, Nausea, Melena, Vomiting Genitourinary: Denies: Dysuria, Frequency, Hematuria, Urgency Musculoskeletal: Denies: Joint Pain, Joint Tenderness Skin: Denies: Rash Neurological: Denies: Focal weakness, Numbness, Tingling Psychiatric: Denies: Homicidal Ideations, Suicidal Ideations Hematologic/ Lymphatic: Denies: Easy Bruising, Easy Bleeding VTE Information - Inpt Only VTE Present on Admission: No VTE Mechan Device Prophylaxis: None VTE Pharm Prophylaxis ordered?: Yes Patient Problems: Active and Suspected Problems (Last Reviewed 03/11/20 @ 16:[address] Jose Gutierrez MD) Hypoglycemia (Acute) Objective: GENERAL: Not in distress HEENT: Atraumatic; EYES; Anicteric, Normal Conjunctiva NECK; supple, normal thyroid, RESPIRATORY: Diminished to auscultation CARDIOVASCULAR: Regular S1 S2, GI: soft, normoactive bowel sounds, : No Renal angle tenderness; EXTREMITIES: No edema, no clubbing, MUSCULOSKELETAL: no muscle waisting NEURO: Awake; no lateralizing signs. SKIN: No Rash PSYCH; Flat affect - Physical Exam Vitals/I&O's: Vital Signs Temp Pulse Resp BP Pulse Ox 97.8 F 79 20 H 107/67 98 03/11/20 16:07 03/11/20 16:07 03/11/20 16:07 03/11/20 16:07 03/11/20 16:07 Oxygen Flow Rate (L/min) 2 Oxygen Delivery Method Room Air Weight: 101.8 kg Body Mass Index (BMI) 31.3 Finger Stick Blood Glucose 96 Laboratory Results 03/11/20 14:09: POC Glucose 91 03/11/20 14:15: WBC 8.4, RBC 4.28 L, Hgb 11.9 L, Hct 37.6 L, MCV 87.9, MCH 27.8, MCHC 31.6 L, RDW Std Deviation 45.7 H, RDW Coeff of Estrada 14.3, Plt Count 300, MPV 9.8, Immature Gran % (Auto) 1.000 H, Neut % (Auto) 77.5 H, Lymph % (Auto) 13.1 L, [place] % (Auto) 7.5, Eos % (Auto) 0.5, Baso % (Auto) 0.4, Absolute Neuts (auto) 6.5, Absolute Lymphs (auto) 1.10, Nucleated RBC % 0 03/11/20 14:15: Sodium 143, Potassium 3.3 L, Chloride 111 H, Carbon Dioxide 26.0, Anion Gap 6, BUN 12, Creatinine 0.67 L, Estim Creat Clear Calc 76.35, Est GFR (MDRD) Af Amer 151, Est GFR (MDRD) Non-Af 125, BUN/Creatinine Ratio 17.8, Glucose 81, Calcium 8.5, Total Bilirubin 0.50, AST 38 H, ALT 30, Alkaline Phosphatase 89, Troponin I 0.046 H, Total Protein 6.8, Albumin 3.1 L, Globulin 3.7, Albumin/Globulin Ratio 0.8 L 03/11/20 14:15: Ethyl Alcohol 4.0 03/11/20 14:35: POC Glucose 63 L 03/11/20 15:03: POC Glucose 151 H 03/11/20 15:55: COVID-19 (SCAR) Pending 03/11/20 16:14: POC Glucose 96 Current Medications Dextrose (Dextrose 10%-Water) 250 mls @ 40 mls/hr IV .Q6H15M ARIA Last Admin: 03/11/20 14:50 Dose: 40 mls/hr Documented by: Assessment/Plan All Active Problems (Last Reviewed 03/11/20 @ 16:[address] Jose Gutierrez MD) Hypoglycemia (Acute) Non-STEMI (non-ST elevated myocardial infarction) (Resolved 02/25/20) Patient is a 69-year-old gentleman admitted with 1. Acute metabolic encephalopathy ?Secondary to hypoglycemia. Patient is on huge doses of long-acting insulin as well as scheduled pre-meal short-acting. Patient insulin regimen from home health please on D10 ordered every 4 Accu-Cheks 2. Hypokalemia ?Admitted to monitored bed for continuous telemetry monitoring and corrected per protocol 3. Elevated troponin ?Secondary to demand ischemia patient underwent left heart catheterization on 02/27/2020 which demonstrated EF 35% with moderate global hypokinesis, inferior basal akinesis. Proximal RCA small vessel occluded left main 30%, LAD diffusely diseased up to 50%. Circumflex diffusely diseased 40% 4. Presence of bedbugs ?Patient placed under contact isolation 5. Diabetes mellitus type 2 ?With complications including hypoglycemia patient home regimen held management as discussed above 6. COPD ?Currently not in exacerbation, aerosol treatment as needed 7. Hypertension - Blood pressure controlled, home medications continued with dose adjustment as needed 8. History of DVT patient is on Coumadin; INR ordered for subsequent dose adjustment and monitoring 9. Dyslipidemia -Patient is on statin therapy, continued at home dose 10. Chronic congestive heart failure with decreased ejection fraction ?Currently compensated 11. Tobacco dependence - Counseled on cessation, offered nicotine patch for tobacco cravings 12. DVT prophylaxis ?Patient on Coumadin no need for additional measures Advance planning; did discuss with the patient and family regarding advanced directives as well as CODE STATUS. Did explain the various scenarios involved ( FULL CODE, DNR CCA, DNR CCA with no intubation, and DNR CC and what each meant) patient elected a full code with CPR and intubation if warranted. Order was placed. Time spent on discussion 18 minutes. . Inpatient E&M: 75079 [facility] Procedures: 70933 Advncd Care Plan 30 Min
[2020-03-11 17:07] LABS: Probe Check PASS; Specimen Processing Control PASS
[2020-03-11 17:39] LABS: International Normalized Ratio 1.3; Prothrombin Time (Protime)PT. 15.9 SECONDS (11.7-14.9)
[2020-03-11 18:00] LABS: Bedside Glucose 73 mg/dL (70-110)
[2020-03-11] MEDS: Dextrose 10%-Water 250 ML 50 ML IV ×2 (18:45→23:47)
[2020-03-11 19:16] LABS: Bedside Glucose 136 mg/dL (70-110)
[2020-03-11 19:16] LABS: Bedside Glucose 49 mg/dL (70-110)
[2020-03-11] MEDS: Furosemide 40 MG Tablet PO (20:26)
[2020-03-11] MEDS: Atorvastatin Calcium 80 MG Tablet PO (21:35)
[2020-03-11] MEDS: Carvedilol 6.25 MG Tablet PO (21:35)
[2020-03-11 23:01] LABS: Bedside Glucose 235 mg/dL (70-110)
[2020-03-12] VITALS (11 sets, daily range): BP systolic 116–143; BP diastolic 67–79; PULSE 87–100; RESP 15–20; TEMP 36.7–36.9; O2SAT 95–97
[2020-03-12 00:13] LABS: Bacteria 0 SEEN /hpf (None Seen); Color, Urine Yellow (Yellow); Glucose, Dipstick 1000 mg/dl (Normal); Ketone-Dipstick Negative (Negative); Leukocyte Esterase-Dipstick Negative /ul (Negative); Mucous, Urine 0 SEEN /hpf (<or=2+); Nitrite-Dipstick Negative (Negative); Occult Blood-Urine Negative /ul (Negative); Protein-Dipstick 30 mg/dl (Negative); Squamous Epithelial Cells - UA 0 SEEN /hpf (0-5); Urine Bilirubin Dipstick Negative (Negative); Urine Clarity Clear (Clear); Urine Urobilinogen 4 mg/dl (Normal)
[2020-03-12] MEDS: Insulin Lispro 100 UNIT/ML INSULN.PEN SC ×4 (00:24→21:07)
[2020-03-12 00:26] LABS: Red Blood Cells-Urine 0-5 SEEN /hpf (0-5); White Blood Cells 0-5 SEEN /hpf (0-5)
[2020-03-12 06:10] LABS: Absolute Lymphocyte Count 1.92 X10^3/uL (0.83-4.51); Basophil# 0.03 X10^3/uL; Basophil% 0.4 % (0-1); Eosinophil# 0.08 X10^3/uL; Hematocrit 36.9 % (40-54); Hemoglobin 11.7 g/dL (13.0-16.5); Lymphocyte # 1.92 X10^3/ul (4.0); Lymphocyte % 24.5 % (19-41); Mean Corp Hgb Conc 31.7 g/dL (32-36); Mean Corpuscular Hgb 27.9 pg (27.0-32.0); Mean Corpuscular Volume 87.9 fL (80-94); Mean Platelet Vol. 9.4 fl (6.2-12.0); Monocyte# 0.76 X10^3/uL; Monocyte% 9.7 % (0-10); NRBC Flagged by Analyzer 0 % (0-5); Neutrophil # 5.03 X10^3/uL (2.7-7.7); Platelet Count 287 K/mm3 (150-450); RBC Distribution Width CV 14.3 % (11.6-14.6); RBC Distribution Width SD 45.9 fl (35.1-43.9); White Blood Count 7.9 K/mm3 (4.4-11.0)
[2020-03-12 06:20] LABS: International Normalized Ratio 1.3; Prothrombin Time (Protime)PT. 15.5 SECONDS (11.7-14.9)
[2020-03-12 06:36] LABS: Bedside Glucose 143 mg/dL (70-110)
[2020-03-12 06:40] LABS: Anion Gap 3 (5-15); BUN 10 mg/dL (7-18); BUN/Creat Ratio 14.2 RATIO (10-20); Calcium,Total 8.3 mg/dL (8.5-10.1); Chloride 109 mmol/L (98-107); Creatinine, Serum 0.71 mg/dL (0.70-1.30); EST Glomerular Filtration Rate 118 mL/min (>60); Est Glom Filt Rate - Afr Amer 143 mL/min (>60); Estimated Creatinine Clearance 76.35 ml/min; Glucose 132 mg/dL (74-106); Potassium 4.1 mmol/L (3.5-5.1); Sodium Level 139 mmol/L (136-145)
[2020-03-12] MEDS: Aspirin 81 MG TAB.CHEW PO (09:54)
[2020-03-12] MEDS: Clopidogrel Bisulfate 75 MG Tablet PO (09:55)
[2020-03-12] MEDS: Famotidine 20 MG Tablet 40 MG PO (09:55)
[2020-03-12] MEDS: Pantoprazole Sodium 40 MG Tablet PO (09:55)
[2020-03-12] MEDS: Furosemide 40 MG Tablet PO ×2 (09:55→17:28)
[2020-03-12] MEDS: Lisinopril 20 MG Tablet PO (09:55)
[2020-03-12] MEDS: Carvedilol 6.25 MG Tablet PO ×2 (09:55→21:09)
[2020-03-12 12:20] LABS: Bedside Glucose 313 mg/dL (70-110)
--- NOTE | 2020-03-12 13:02 | PN_ITS ---
Patient Problems: Active and Suspected Problems (Last Reviewed 03/11/20 @ 16:[address] Jose Gutierrez MD) Hypoglycemia (Acute) Subjective: Asks when he is going home. States that his sugars have been all over the place. Check blood sugars about 1 x daily. Denies any issues other than his recent BGT issues. Not amenable to home health. Vitals/I&O's: Vital Signs Temp Pulse Resp BP Pulse Ox 98.4 F 100 15 131/70 H 96 03/12/20 09:42 03/12/20 10:56 03/12/20 09:42 03/12/20 09:42 03/12/20 09:42 Oxygen Flow Rate (L/min) 2 Oxygen Delivery Method Room Air Weight: 98.9 kg Body Mass Index (BMI) 30.1 Finger Stick Blood Glucose 73 Intake and Output for Last 24 Hours 03/10/20 03/11/20 03/12/20 23:59 23:59 23:59 Intake Total 1370.67 / 1370.67 391.67 / 391.67 Output Total 350 / 350 1395 / 1395 Balance 1020.67 / 1020.67 -1003.33 / -1003.33 General: Alert, Oriented x3, Cooperative, No apparent distress, Well developed, Well nourished, - - WM appears older than stated age, talking on phone and reluctant to hang up HEENT: Atraumatic, PERRLA, EOMI, Normocephalic, TM's Clear, EAC Clear Oral: Moist Mucosa, No Gingival or Mucosal Lesions/ Ulcerations, - - poor dentition, no thrush Neck: Supple, No JVD, Negative Carotid Bruits, Negative Hepatojugular Reflux, No Nodes, No Nuchal Rigidity, Trachea Midline, Thyroid Normal Size and Texture Lungs: Clear to auscultation, No rhonchi, No wheeze, No rales, Diminished - diffusely Cardiovascular: Regular rate, Regular Rhythm, Normal S1, Normal S2, No Ectopic Activity, Murmur - 2-3 SM, No rub noted, No Gallop Abdomen: Bowel Sounds Present, Soft, Non Tender, Non-Distended, Obese Extremities: No clubbing, No cyanosis, No edema, Capillary Refill Less than 3 Seconds, Diminished Peripheral Pulses - 1+ Skin: No rashes, No breakdown Musculoskeletal: No Tenderness to Palpation of Joints or Extremities, No Muscle Wasting Lymphatic: No Cervical, Supraclavicular, or Inguinal Adenopathy Neurological: Cranial nerves II-XII grossly intact, Neuro grossly intact, Muscle tone normal, Coordination normal, - - neuropathy Psych/Mental Status: Normal Affect, Appropriate, Alert and oriented to time, place, person, mood and affect Laboratory Results 03/11/20 14:09: POC Glucose 91 03/11/20 14:15: WBC 8.4, RBC 4.28 L, Hgb 11.9 L, Hct 37.6 L, MCV 87.9, MCH 27.8, MCHC 31.6 L, RDW Std Deviation 45.7 H, RDW Coeff of Estrada 14.3, Plt Count 300, MPV 9.8, Immature Gran % (Auto) 1.000 H, Neut % (Auto) 77.5 H, Lymph % (Auto) 13.1 L , [place] % (Auto) 7.5, Eos % (Auto) 0.5, Baso % (Auto) 0.4, Absolute Neuts (auto) 6.5, Absolute Lymphs (auto) 1.10, Nucleated RBC % 0 03/11/20 14:15: Sodium 143, Potassium 3.3 L, Chloride 111 H, Carbon Dioxide 26.0, Anion Gap 6, BUN 12, Creatinine 0.67 L, Estim Creat Clear Calc 76.35, Est GFR (MDRD) Af Amer 151, Est GFR (MDRD) Non-Af 125, BUN/Creatinine Ratio 17.8, Glucose 81, Calcium 8.5, Total Bilirubin 0.50, AST 38 H, ALT 30, Alkaline Phosphatase 89, Troponin I 0.046 H, Total Protein 6.8, Albumin 3.1 L, Globulin 3.7, Albumin/Globulin Ratio 0.8 L 03/11/20 14:15: Ethyl Alcohol 4.0 03/11/20 14:15: PT 15.9 H, INR 1.3 03/11/20 14:35: POC Glucose 63 L 03/11/20 15:03: POC Glucose 151 H 03/11/20 15:55: COVID-19 (SCAR) Negative 03/11/20 16:14: POC Glucose 96 03/11/20 17:29: POC Glucose 73 03/11/20 18:16: Troponin I 0.077 H 03/11/20 18:45: POC Glucose 49 L 03/11/20 19:09: POC Glucose 136 H 03/11/20 21:15: Troponin I 0.084 H 03/11/20 22:57: POC Glucose 235 H 03/11/20 23:40: Urine Color Yellow, Urine Clarity Clear, Urine pH 7.0, Ur Specific Carmen 1.010, Urine Protein 30 H, Urine Glucose (UA) 1000 H, Urine Ketones Negative, Urine Occult Blood Negative, Urine Nitrite Negative, Urine Bilirubin Negative, Urine Urobilinogen 4 H, Ur Leukocyte Esterase Negative, Urine RBC 0-5 SEEN, Urine WBC 0-5 SEEN, Ur Squamous Epith Cells 0 SEEN, Urine Bacteria 0 SEEN, Urine Mucus 0 SEEN 03/12/20 05:58: WBC 7.9, RBC 4.20 L, Hgb 11.7 L, Hct 36.9 L, MCV 87.9, MCH 27.9, MCHC 31.7 L, RDW Std Deviation 45.9 H, RDW Coeff of Estrada 14.3, Plt Count 287, MPV 9.4, Immature Gran % (Auto) 0.400, Neut % (Auto) 64.0, Lymph % (Auto) 24.5, [place] % (Auto) 9.7, Eos % (Auto) 1.0, Baso % (Auto) 0.4, Absolute Neuts (auto) 5.0, Absolute Lymphs (auto) 1.92, Nucleated RBC % 0 03/12/20 05:58: PT 15.5 H, INR 1.3 03/12/20 05:58: Sodium 139, Potassium 4.1, Chloride 109 H, Carbon Dioxide 27.0, Anion Gap 3 L, BUN 10, Creatinine 0.71, Estim Creat Clear Calc 76.35, Est GFR (MDRD) Af Amer 143, Est GFR (MDRD) Non-Af 118, BUN/Creatinine Ratio 14.2, Glucose 132 H, Calcium 8.3 L, Troponin I 0.074 H 03/12/20 06:30: POC Glucose 143 H 03/12/20 12:07: POC Glucose 313 H Current Medications Acetaminophen (Tylenol) 650 mg PO Q6H PRN PRN PRN Reason: Pain Score 1-10/Temp > 100.7 F Al Hydroxide/Mg Hydroxide (Mylanta Ii) 30 ml PO Q6H PRN PRN PRN Reason: Gastric Burning Albuterol Sulfate (Ventolin Aerosols) 2.5 mg INHALATION Q2H PRN PRN PRN Reason: SOB/Wheezing Aspirin (Aspirin, Baby) 81 mg PO DAILY@0800 [facility] Last Admin: 03/12/20 09:54 Dose: 81 mg Documented by: Atorvastatin Calcium (Lipitor) 80 mg PO QHS [facility] Last Admin: 03/11/20 21:35 Dose: 80 mg Documented by: Baclofen (Lioresal) 5 mg PO TID PRN PRN PRN Reason: musce spasm Carvedilol (Coreg) 6.25 mg PO BID [facility] Last Admin: 03/12/20 09:55 Dose: 6.25 mg Documented by: Clopidogrel Bisulfate (Plavix) 75 mg PO DAILY [facility] Last Admin: 03/12/20 09:55 Dose: 75 mg Documented by: Dextrose (D50w Syringe) 0 gm IV X1 PRN; Protocol PRN Reason: Hypoglycemia Famotidine (Pepcid) 40 mg PO DAILY [facility] Last Admin: 03/12/20 09:55 Dose: 40 mg Documented by: Furosemide (Lasix) 40 mg PO BID@1000,1800 [facility] Last Admin: 03/12/20 09:55 Dose: 40 mg Documented by: Glucagon () 1 mg IM .X1 PRN PRN Reason: Hypoglycemia Guaifenesin (Robitussin) 20 ml PO Q4H PRN PRN PRN Reason: COUGH Sodium Chloride () 250 mls @ 15 mls/hr IV .[id number] PRN PRN Reason: Saline Flush Sodium Chloride () 250 mls @ 15 mls/hr IV .[id number] PRN PRN Reason: Additional IVPB Infusion Insulin Human Lispro (Humalog Kwikpen (Bkc)) 0 unit SC ACHS [facility]; Protocol Last Admin: 03/12/20 12:11 Dose: 6 units Documented by: Lisinopril (Zestril) 20 mg PO DAILY [facility] Last Admin: 03/12/20 09:55 Dose: 20 mg Documented by: Melatonin (Melatonin) 3 mg PO QHS PRN PRN PRN Reason: INSOMNIA Nitroglycerin (Nitrostat) 0.4 mg SUBLINGUAL Q5M PRN PRN Reason: CARDIAC/CHEST PAIN Ondansetron HCl (Zofran) 4 mg IV Q8H PRN PRN PRN Reason: NAUSEA/VOMITING Pantoprazole Sodium (Protonix) 40 mg PO DAILY [facility] Last Admin: 03/12/20 09:55 Dose: 40 mg Documented by: Potassium Chloride (K-Dur) 20 meq PO BIDCM [facility] Last Admin: 03/12/20 09:54 Dose: 20 meq Documented by: Senna/Docusate Sodium (Senokot-S, Donna-Colace) 2 tablet PO BID PRN PRN PRN Reason: Constipation Sodium Chloride () 10 - 40 ml IV UD PRN PRN Reason: SALINE FLUSH Warfarin Sodium (Jantoven) 5 mg PO DAILY@1700 [facility] Last Admin: 03/11/20 20:25 Dose: 5 mg Documented by: STROKE Vital Signs/Narrative: Vital Signs Temp Pulse Resp BP Pulse Ox 03/12/20 10:56 100 03/12/20 09:42 98.4 F 92 15 131/70 H 96 Medical Necessity - Tobacco Use Smoking Status: Unknown if ever smoked Assessment/Plan All Active Problems (Last Reviewed 03/11/20 @ 16:[address] Jose Gutierrez MD) Hypoglycemia (Acute) Non-STEMI (non-ST elevated myocardial infarction) (Resolved 02/25/20) Acute Metabolic Encephalopathy 2/2 Severe Hypoglycemia -Resolved -BGT now 313 on last assessment -Fluids no off -will restart insulins at lower doses Troponin Elevation -suspect demand ischemia -underwent left heart catheterization on 02/27/2020 which demonstrated EF 35% with moderate global hypokinesis, inferior basal akinesis. Proximal RCA small vessel occluded left main 30%, LAD diffusely diseased up to 50%. Circumflex diffusely diseased 40% -no CP/EKG changes -trending down Hypokalemia -resolved Mild Anemia -counts stable -monitor DM-2 -was on Basal insulin 150 daily and 55 u TID of log -will restart insulin at Lantus 25 u BID -NPH 14 un stat -start 15 u TID with meals -trend BGT and adjust in preparation for d/c -was told in the past that he need to f/u with Dr. Carson for endo but never did HFrEF/ICM/HTN/HPL/PVD -continue Coreg/Plavix/Lasix/Lisinopril -d/c ASA as pt is on triple therapy with ASA/Plavix and warfarin if ok with cards -status post right lower extremity balloon angioplasty Recent NSTEMI see above Obesity -recommend wgt loss COPD with current tobacco abuse -prn nebs -pt on RA BEATRICE -pt non-compliant with CPAP (mild to mod) -f/u with cards H/O DVT -INR is subtherapeutic at 1.3 will bridge with Lovenox 100 mg BID -would recommend d/c ASA, continue Plavix and warfarin if ok with cards -Dr. Recio manages his INR Bed Bugs -contact isolation DVT Prophylaxis -full dose lovenox for bridge to coumadin Code Status -Full Dispo -probable d/c tomorrow once med dosing adjustments made Inpatient E&M: 60202 Subs Hosp L3
--- NOTE | 2020-03-12 14:22 | CASEMGMT ---
Per Dr. Ochoa, pt needs to have appt set up with Dr. Carson, endocrinology, at discharge. [place], PCU nursing secretary, aware, voices understanding. Tj HOPE CM
[2020-03-12] MEDS: Insulin NPH Human 100 UNITS/ML PEN 14 UNITS SC (15:21)
--- NOTE | 2020-03-12 15:45 | CASEMGMT ---
HERMINIA STANFORD Readmission note: Prior admission: Admitted 02/24 w/NSTEMI, CHF, and hyperglycemia. Discharged home 02/27/20. Pt lives @ home w/his cousin and had declined HHC at discharge. Pt was to f/u w/his PCP and cardiology. He was discharged home w/several new scripts which included Lasix, Coreg, Baby ASA, Crestor, and Plavix. Current admission: Admitted 03/11/20 w/hypoglycemia and Acute CHF. HERMINIA STANFORD to room to talk w/pt. Pt sitting up in recliner chair. HERMINIA STANFORD introduced self and role of HERMINIA STANFORD. He states he did see Dr Hernandez since his last admission and that his diabetic medication has been being adjusted. He states he has been taking the medication as prescribed, but his blood sugar level ended up going too low. Discussed Diabetic Clinic with pt and he states he may be interested in talking with them. Diabetic Clinic rac card/contact information given to pt at this time. He also states he plans to f/u with Dr Carson, endocrinology. He states He has an upcoming appt @ [facility] in March. Discussed HHC and CCN w/pt but he states his cousin does not want anyone coming into the home. He denies having any discharge needs or concerns w/going home at discharge. He states he has all the diabetic testing supplies needed and medications. Discharge plan: Home. Yehuda HENDERSON RN, CM
[2020-03-12] MEDS: Insulin Lispro 100 UNIT/ML INSULN.PEN 15 UNIT SC (17:27)
[2020-03-12] MEDS: Enoxaparin 100 MG/ML Syringe SC (17:30)
[2020-03-12 17:35] LABS: Bedside Glucose 285 mg/dL (70-110)
[2020-03-12] MEDS: Atorvastatin Calcium 80 MG Tablet PO (21:09)
[2020-03-12] MEDS: MELATONIN 3 MG TABLET PO (21:13)
[2020-03-12 21:51] LABS: Bedside Glucose 157 mg/dL (70-110)
[2020-03-13] VITALS (8 sets, daily range): BP systolic 120–135; BP diastolic 65–86; PULSE 95–104; RESP 16–18; TEMP 36.6–36.7; O2SAT 95–98
[2020-03-13] MEDS: Enoxaparin 100 MG/ML Syringe SC ×2 (05:06→16:38)
[2020-03-13 05:43] LABS: Absolute Lymphocyte Count 2.29 X10^3/uL (0.83-4.51); Absolute Neutrophil Count 4.7 X10^3/uL (2.0-7.7); Basophil# 0.04 X10^3/uL; Basophil% 0.5 % (0-1); Eosinophils% 1.3 % (0-5); Hematocrit 38.2 % (40-54); Hemoglobin 12.2 g/dL (13.0-16.5); Lymphocyte # 2.29 X10^3/ul (4.0); Lymphocyte % 28.8 % (19-41); Mean Corp Hgb Conc 31.9 g/dL (32-36); Mean Corpuscular Hgb 27.6 pg (27.0-32.0); Mean Corpuscular Volume 86.4 fL (80-94); Mean Platelet Vol. 9.8 fl (6.2-12.0); Monocyte# 0.81 X10^3/uL; Monocyte% 10.2 % (0-10); NRBC Flagged by Analyzer 0 % (0-5); Neutrophil # 4.69 X10^3/uL (2.7-7.7); Neutrophil % 58.8 % (47-70); Platelet Count 304 K/mm3 (150-450); RBC Distribution Width CV 14.2 % (11.6-14.6); RBC Distribution Width SD 44.8 fl (35.1-43.9); Red Blood Count 4.42 M/mm3 (4.6-6.2)
[2020-03-13 06:06] LABS: ALB/GLOB Ratio 0.8 RATIO (0.9-2.4); AST(SGOT) 24 U/L (15-37); Alanine Aminotransfer ALT/SGPT 28 U/L (16-61); Albumin, Serum 2.9 g/dL (3.2-5.0); Alkaline Phosphatase 86 U/L (45-117); Anion Gap 4 (5-15); BUN 17 mg/dL (7-18); Calcium,Total 8.7 mg/dL (8.5-10.1); Chloride 104 mmol/L (98-107); Creatinine, Serum 0.74 mg/dL (0.70-1.30); EST Glomerular Filtration Rate 112 mL/min (>60); Est Glom Filt Rate - Afr Amer 136 mL/min (>60); Estimated Creatinine Clearance 76.35 ml/min; Globulin 3.8 g/dL (2.2-4.2); Glucose 131 mg/dL (74-106); Potassium 3.7 mmol/L (3.5-5.1); Protein, Total 6.7 g/dL (6.4-8.2); Sodium Level 137 mmol/L (136-145)
[2020-03-13] MEDS: Insulin Lispro 100 UNIT/ML INSULN.PEN 15 UNIT SC ×3 (08:13→16:51)
[2020-03-13] MEDS: Insulin Lispro 100 UNIT/ML INSULN.PEN SC ×3 (08:13→16:52)
[2020-03-13] MEDS: Aspirin 81 MG TAB.CHEW PO (08:15)
[2020-03-13] MEDS: Clopidogrel Bisulfate 75 MG Tablet PO (10:34)
[2020-03-13] MEDS: Lisinopril 20 MG Tablet PO (10:34)
[2020-03-13] MEDS: Carvedilol 6.25 MG Tablet PO (10:34)
[2020-03-13] MEDS: Furosemide 40 MG Tablet PO ×2 (10:34→16:55)
[2020-03-13] MEDS: Famotidine 20 MG Tablet 40 MG PO (10:35)
[2020-03-13] MEDS: Pantoprazole Sodium 40 MG Tablet PO (11:11)
[2020-03-13 11:41] LABS: Bedside Glucose 244 mg/dL (70-110)
[2020-03-13 11:50] LABS: International Normalized Ratio 1.4; Prothrombin Time (Protime)PT. 16.5 SECONDS (11.7-14.9)
--- NOTE | 2020-03-13 11:57 | DCINST_ITS ---
- Discharge Diagnoses Current Active Problems: Current Active and Chronic Problems (Last Reviewed 03/11/20 @ 16:[address] Jose Gutierrez MD) Hypoglycemia (Acute) You will use the following diet at home:: Calorie/Carbohydrate Controlled (specify 1200, 1400, etc), Cardiac Your food should be the consistency of: Regular Your liquids should be the consistency of: Regular/Thin Discharge Activity: Return to Normal Activity, No Restrictions Call your doctor if you observe: Fever of 101 or Higher, Shortness of breath, Swelling in the ankles, Chest pain Allergies/Adverse Reactions: Allergies No Known Allergies Allergy (Verified 03/11/20 14:06) Medications to take at Discharge Zolpidem Tartrate [Ambien] 10 mg PO QHS 11/06/15 Multivitamin [Daily Multiple Vitamin] 1 ea PO DAILY 07/17/19 Tramadol HCl [Ultram] 50 mg PO BID 02/25/20 Clopidogrel Bisulfate [Plavix] 75 mg PO DAILY #30 tab 02/27/20 Rosuvastatin Calcium [Crestor] 40 mg PO QHS #30 tab 02/27/20 Baclofen 10 mg PO TID 03/11/20 Carvedilol [Coreg (Beta Supriya)] 6.25 mg PO BID 03/11/20 Famotidine 40 mg PO DAILY 03/11/20 Furosemide [Lasix] 40 mg PO BID@1000,1800 03/11/20 Omeprazole 20 mg PO DAILY 03/11/20 Roflumilast [Daliresp] 500 mcg PO DAILY 03/11/20 Carvedilol [Coreg (Beta Supriya)] 6.25 mg PO BID tab 03/13/20 Enoxaparin [Lovenox] 100 mg SUBCUT Q12@0600,1800 7 Days #14 syringe 03/13/20 Insulin Glargine [Lantus SoloStar Pen] 25 units SUBCUT BID #1 pen 03/13/20 Insulin Lispro [Humalog KwikPen] 15 unit SUBCUT TIDAC #1 insuln.pen 03/13/20 Senna/Docusate Sodium [Senokot-S] 2 tab PO BID PRN PRN tab 03/13/20 Warfarin [Coumadin] 2.5 mg PO DAILY #30 tab 03/13/20 Warfarin [Coumadin] 5 mg PO DAILY@1700 #0 tab 03/13/20 The following prescriptions were given: Warfarin [Coumadin] 2.5 mg PO DAILY #30 tab Transmission Status: Sent to [facility] Insulin Lispro [Humalog KwikPen] 15 unit SUBCUT TIDAC #1 insuln.pen Transmission Status: Received by [facility] Insulin Glargine [Lantus SoloStar Pen] 25 units SUBCUT BID #1 pen Transmission Status: Received by [facility] Enoxaparin [Lovenox] 100 mg SUBCUT Q12@0600,1800 7 Days #14 syringe Transmission Status: Sent to [facility] Primary Care Physician: Saurabh Hernandez Chi, MD [Primary Care Provider] - Please follow up with your Primary Care Physician in: 1-2 weeks for hospital follow up Test Results: Test results from this visit will be discussed in further detail at your follow- up appointment, if applicable. Please Follow Up With: Nicolas Carson MD When: Novemeber as scheduled Please Follow Up With: Saurabh Hernandez Chi, MD When: tomorrow 03/14 for INR check
--- NOTE | 2020-03-13 11:59 | PCM.DC.SUM ---
Discharge Date and Diagnosis - Problem List Patient Problems: Active and Suspected Problems (Last Reviewed 03/11/20 @ 16:[address] Jose Gutierrez MD) Hypoglycemia (Acute) Date of Admission: 03/11/20 Date of Discharge: 03/13/20 - Primary Discharge Diagnosis Acute Problems: Active Problems (Last Reviewed 03/11/20 @ 16:[address] Jose Gutierrez MD) Hypoglycemia (Acute) - Secondary Discharge Diagnosis Chronic Problems: Chronic Problems (Last Reviewed 03/11/20 @ 16:[address] 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 CONFUSION/FOUND UNRESPONSIVE RADIATION DOSAGE (If Supplied By Facility): CTDIvol = ( 60.81 ) mGy, DLP = ( 1044.28 ) mGycm TECHNIQUE: Transaxial CT imaging of the brain was performed without administration of intravenous contrast material. Individualized dose optimization techniques were used for this CT. COMPARISON: No relevant priors. FINDINGS: Normal soft tissue structures. Normal calvarium. Normal size ventricles and extra-axial spaces for the patient''s age. There are areas of decreased attenuation within the white matter tracts of the supratentorial brain, consistent with microvascular disease changes. There are small punctate calcifications of the basal ganglia which are seen in the aging brain as a normal variant. 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 Normal brainstem. Normal cerebellum. There is no intracranial hemorrhage. There are no findings of an acute ischemic infarction. Mucosal thickening of the maxillary sinuses more prominent on the left side as well as ethmoid sinuses. CT/Brain/Head without Contrast IMPRESSION: Chronic involutional changes of the brain. Operations: None, - - debridement of right foot and open hallux amputation Procedures: None Summary of Care Provided: Mr Coronel is a 69 year old M with multiple comorbidities including diabetes mellitus type 2, recent diagnosis of acute non-STEMI for which patient underwent left heart catheterization on 02/27/2020 patient was found to have EF 35% with moderate global hypokinesis, inferior basal akinesis. Proximal RCA small vessel occluded left main 30%, LAD diffusely diseased up to 50%. Circumflex diffusely diseased 40% optimization of medical therapy was advised. He was found unresponsive by a neighbor in his bathroom. CPR was initiated the EMS squad was called. EMS upon arrival found patient with blood glucose level of 33. Was started on dextrose in the ED. He was treated with dextrose IV and his blood sugars stabilized. He states that the physician who has been managing his blood sugars recently increased the dose of his long acting insulin to 150 u and 55 u of log with meals. We cut his doses to 25 u of lantus BID here and 15 u with meals. He is controlled on these doses. He was strongly encouraged to f/u with endocrine and an appt was made for him in May. He was informed of this. His INR was 1.3 consistently during his stay and he was on 5 mg of Coumadin. He was bridged with Lovenox 100 BID and was instructed to continue this until his INR was > 2 per his PCP. He is to f/u tomorrow for this. His Coumadin dose was increased to 7.5 mg on d/c. He voiced understanding with all of his home going instructions. His ASA was discontinued as he is on triple therapy with plavix/ASA and warfarin which dramatically increases the risk for bleeding. >31' in coordination of discharge Patient Problems: Active and Suspected Problems (Last Reviewed 03/11/20 @ 16:[address] Jose Gutierrez MD) Hypoglycemia (Acute) Subjective: Pt states that he is feeling okay. States that he will f/u with PCP tomorrow for INR and Endo as scheduled in May - Physical Exam Vitals/I&O's: Vital Signs Temp Pulse Resp BP Pulse Ox 98 F 104 H 18 120/82 H 95 03/13/20 08:55 03/13/20 08:55 03/13/20 08:55 03/13/20 10:37 03/13/20 08:55 Oxygen Flow Rate (L/min) 2 Oxygen Delivery Method Room Air Weight: 94.7 kg Body Mass Index (BMI) 30.1 Finger Stick Blood Glucose 73 Intake and Output for Last 24 Hours 03/11/20 03/12/20 03/13/20 23:59 23:59 23:59 Intake Total 1370.67 / 1370.67 631.67 / 631.67 Output Total 350 / 350 3920 / 3920 1025 / 1025 Balance 1020.67 / 1020.67 -3288.33 / -3288.33 -1025 / -1025 General: Alert, Oriented x3, Cooperative, No apparent distress, Well developed, Well nourished, - - Older WM sitting up in bed talking on phone and watching TV HEENT: Atraumatic, PERRLA, EOMI, EAC Clear Oral: Moist Mucosa, No Gingival or Mucosal Lesions/ Ulcerations Neck: Supple, Trachea Midline, Thyroid Normal Size and Texture Lungs: Clear to auscultation, Normal air movement, No rhonchi, No wheeze, No rales Cardiovascular: Regular rate, Regular Rhythm, Normal S1, Normal S2, No murmurs, No Ectopic Activity, No rub noted, No Gallop Abdomen: Bowel Sounds Present, Soft, Non Tender, Non-Distended, No Hepato-splenomegaly Extremities: No clubbing, No cyanosis, No edema, Capillary Refill Less than 3 Seconds, Peripheral Pulses Normal Skin: No rashes, No breakdown Musculoskeletal: No Tenderness to Palpation of Joints or Extremities, No Muscle Wasting, Arthritic Changes Lymphatic: No Cervical, Supraclavicular, or Inguinal Adenopathy Neurological: Cranial nerves II-XII grossly intact, Neuro grossly intact Psych/Mental Status: Normal Affect, Appropriate, Alert and oriented to time, place, person, mood and affect Laboratory Results 03/12/20 12:07: POC Glucose 313 H 03/12/20 17:24: POC Glucose 285 H 03/12/20 21:03: POC Glucose 157 H 03/13/20 05:15: WBC 8.0, RBC 4.42 L, Hgb 12.2 L, Hct 38.2 L, MCV 86.4, MCH 27.6, MCHC 31.9 L, RDW Std Deviation 44.8 H, RDW Coeff of Estrada 14.2, Plt Count 304, MPV 9.8, Immature Gran % (Auto) 0.400, Neut % (Auto) 58.8, Lymph % (Auto) 28.8, Hawkins % (Auto) 10.2 H, Eos % (Auto) 1.3, Baso % (Auto) 0.5, Absolute Neuts (auto) 4.7, Absolute Lymphs (auto) 2.29, Nucleated RBC % 0 03/13/20 05:15: Sodium 137, Potassium 3.7, Chloride 104, Carbon Dioxide 29.0, Anion Gap 4 L, BUN 17, Creatinine 0.74, Estim Creat Clear Calc 76.35, Est GFR (MDRD) Af Amer 136, Est GFR (MDRD) Non-Af 112, BUN/Creatinine Ratio 23.0 H, Glucose 131 H, Calcium 8.7, Total Bilirubin 0.70, AST 24, ALT 28, Alkaline Phosphatase 86, Total Protein 6.7, Albumin 2.9 L, Globulin 3.8, Albumin/Globulin Ratio 0.8 L 03/13/20 11:13: POC Glucose 244 H 03/13/20 11:36: PT 16.5 H, INR 1.4 Current Medications Acetaminophen (Tylenol) 650 mg PO Q6H PRN PRN PRN Reason: Pain Score 1-10/Temp > 100.7 F Al Hydroxide/Mg Hydroxide (Mylanta Ii) 30 ml PO Q6H PRN PRN PRN Reason: Gastric Burning Albuterol Sulfate (Ventolin Aerosols) 2.5 mg INHALATION Q2H PRN PRN PRN Reason: SOB/Wheezing Aspirin (Aspirin, Baby) 81 mg PO DAILY@0800 [facility] Last Admin: 03/13/20 08:15 Dose: 81 mg Documented by: Atorvastatin Calcium (Lipitor) 80 mg PO QHS [facility] Last Admin: 03/12/20 21:09 Dose: 80 mg Documented by: Baclofen (Lioresal) 5 mg PO TID PRN PRN PRN Reason: musce spasm Carvedilol (Coreg) 6.25 mg PO BID [facility] Last Admin: 03/13/20 10:34 Dose: 6.25 mg Documented by: Clopidogrel Bisulfate (Plavix) 75 mg PO DAILY [facility] Last Admin: 03/13/20 10:34 Dose: 75 mg Documented by: Dextrose (D50w Syringe) 0 gm IV X1 PRN; Protocol PRN Reason: Hypoglycemia Enoxaparin Sodium (Lovenox) 100 mg SC Q12@0600,1800 [facility] Last Admin: 03/13/20 05:06 Dose: 100 mg Documented by: Famotidine (Pepcid) 40 mg PO DAILY [facility] Last Admin: 03/13/20 10:35 Dose: 40 mg Documented by: Furosemide (Lasix) 40 mg PO BID@1000,1800 [facility] Last Admin: 03/13/20 10:34 Dose: 40 mg Documented by: Glucagon () 1 mg IM .X1 PRN PRN Reason: Hypoglycemia Guaifenesin (Robitussin) 20 ml PO Q4H PRN PRN PRN Reason: COUGH Sodium Chloride () 250 mls @ 15 mls/hr IV .[id number] PRN PRN Reason: Saline Flush Sodium Chloride () 250 mls @ 15 mls/hr IV .[id number] PRN PRN Reason: Additional IVPB Infusion Insulin Glargine (Lantus (Bkc)) 25 units SC BID [facility] Last Admin: 03/13/20 10:35 Dose: 25 units Documented by: Insulin Human Lispro (Humalog Kwikpen (Bkc)) 0 unit SC ACHS [facility]; Protocol Last Admin: 03/13/20 11:15 Dose: 4 units Documented by: Insulin Human Lispro (Humalog Kwikpen (Bkc)) 15 unit SC TIDAC [facility] Last Admin: 03/13/20 11:14 Dose: 15 units Documented by: Lisinopril (Zestril) 20 mg PO DAILY [facility] Last Admin: 03/13/20 10:34 Dose: 20 mg Documented by: Melatonin (Melatonin) 3 mg PO QHS PRN PRN PRN Reason: INSOMNIA Last Admin: 03/12/20 21:13 Dose: 3 mg Documented by: Nitroglycerin (Nitrostat) 0.4 mg SUBLINGUAL Q5M PRN PRN Reason: CARDIAC/CHEST PAIN Ondansetron HCl (Zofran) 4 mg IV Q8H PRN PRN PRN Reason: NAUSEA/VOMITING Pantoprazole Sodium (Protonix) 40 mg PO DAILY [facility] Last Admin: 03/13/20 11:11 Dose: 40 mg Documented by: Potassium Chloride (K-Dur) 20 meq PO BIDCM [facility] Last Admin: 03/13/20 08:15 Dose: 20 meq Documented by: Senna/Docusate Sodium (Senokot-S, Donna-Colace) 2 tablet PO BID PRN PRN PRN Reason: Constipation Sodium Chloride () 10 - 40 ml IV UD PRN PRN Reason: SALINE FLUSH Warfarin Sodium (Jantoven) 5 mg PO DAILY@1700 [facility] Last Admin: 03/12/20 17:28 Dose: 5 mg Documented by: Discharge Activity: Return to Normal Activity, No Restrictions Call your doctor if you observe: Fever of 101 or Higher, Shortness of breath, Swelling in the ankles, Chest pain Home Medications: Medications to take at Discharge Zolpidem Tartrate [Ambien] 10 mg PO QHS 11/06/15 Multivitamin [Daily Multiple Vitamin] 1 ea PO DAILY 07/17/19 Tramadol HCl [Ultram] 50 mg PO BID 02/25/20 Clopidogrel Bisulfate [Plavix] 75 mg PO DAILY #30 tab 02/27/20 Rosuvastatin Calcium [Crestor] 40 mg PO QHS #30 tab 02/27/20 Baclofen 10 mg PO TID 03/11/20 Carvedilol [Coreg (Beta Supriya)] 6.25 mg PO BID 03/11/20 Famotidine 40 mg PO DAILY 03/11/20 Furosemide [Lasix] 40 mg PO BID@1000,1800 03/11/20 Omeprazole 20 mg PO DAILY 03/11/20 Roflumilast [Daliresp] 500 mcg PO DAILY 03/11/20 Carvedilol [Coreg (Beta Supriya)] 6.25 mg PO BID tab 03/13/20 Enoxaparin [Lovenox] 100 mg SUBCUT Q12@0600,1800 7 Days #14 syringe 03/13/20 Insulin Glargine [Lantus SoloStar Pen] 25 units SUBCUT BID #1 pen 03/13/20 Insulin Lispro [Humalog KwikPen] 15 unit SUBCUT TIDAC #1 insuln.pen 03/13/20 Senna/Docusate Sodium [Senokot-S] 2 tab PO BID PRN PRN tab 03/13/20 Warfarin [Coumadin] 2.5 mg PO DAILY #30 tab 03/13/20 Warfarin [Coumadin] 5 mg PO DAILY@1700 #0 tab 03/13/20 Following Prescriptions Were Given to Patient: Warfarin [Coumadin] 2.5 mg PO DAILY #30 tab Transmission Status: Sent to [facility] Insulin Lispro [Humalog KwikPen] 15 unit SUBCUT TIDAC #1 insuln.pen Transmission Status: Received by [facility] Insulin Glargine [Lantus SoloStar Pen] 25 units SUBCUT BID #1 pen Transmission Status: Received by [facility] Enoxaparin [Lovenox] 100 mg SUBCUT Q12@0600,1800 7 Days #14 syringe Transmission Status: Sent to [facility] Primary Care Physician: Saurabh Hernandez Chi, MD [Primary Care Provider] - Please follow up with your Primary Care Physician in: 1-2 weeks for hospital follow up Please Follow Up With: Nicolas Carson MD When: as scheduled Please Follow Up With: Saurabh Hernandez Chi, MD When: tomorrow 03/14 for INR check Medical Necessity - Tobacco Use Smoking Status: Unknown if ever smoked Meaningful Use Info Meaningful Use Diagnoses (Choose all that apply): None applicable Inpatient E&M: [id number] [facility]
--- NOTE | 2020-03-13 12:11 | CASEMGMT ---
SW met with patient, introduced self and role at [facility]. SW discussed Palliative Care with patient. He did accept pamphlet, but was not open to a referral being made at this time. Ashlyn GARCIA
--- NOTE | 2020-03-13 13:26 | CASEMGMT ---
Lovenox 100mg subq e-scribed for twice daily but according to the [facility] pharmacist, this does exceeds the insurance plan limit at this time. Dr. Ochoa aware and e-scribed a new order for Lovenox 140mg subq daily at this time. Call back to [facility] and per poonam, pt has no co-pay at this time. Per Monika HOPE, pt has not done lovenox shot on his own but she will have him do the 1800 dose prior to discharge. Tj HOPE CM
--- NOTE | 2020-03-13 16:43 | NURSING ---
Addendum entered by Monika See 03/13/20 16:47: Pt demonstrated administration of lovenox in abdomen to this RN. Pt cleansed site with alcohol prior to administration. Original Note: Discharge instructions reviewed with pt. Verbalizes understanding of lovenox coumadin bridge. Primary contact, Mariam, called and updated on discharge instructions and explanation of lovenox coumadin bridge and need for INR tomorrow. Mariam verbalized understanding.
[2020-03-13 17:16] LABS: Bedside Glucose 165 mg/dL (70-110)
--- NOTE | 2020-03-14 12:02 | CASEMGMT ---
RN CM DC PHONE CALL DC DATE: 03/13/20 DC DISPOSITION: Home DC DIAGNOSIS: Hypoglycemia LACE/STRATA: 06/19 F/U APPTS MADE PRIOR TO DC: yes Attempted call to patient's phone. No answer. Message had name identifier, so message left with call back information if patient had questions re: dc instructions, prescriptions or follow up ordered on dc. Anna MCKEONN RN ACM
--- NOTE | 2020-03-14 15:09 | CASEMGMT ---
Fax received from [employer] stating Insulin lispro 100unit/ml kwikpen is not on pt's insurance formulary. Per [facility] formulary, Novolog flexpen u-100 100unit/ml is alternative on the formulary. Dr. Ochoa aware and states for script to be called [facility] for Novolog u-100 flexpen aspart 100unit/ml(3ml)subq 15 units three times daily. Call to [facility] pharmacist and updated at this time. Pharmacist voices no further questions/concerns/needs at this time. Tj HOPE CM
--- NOTE | 2020-03-17 09:54 | CASEMGMT ---
RN HIEN Note: call received last Tuesday afternoon when CM was no longer @ hospital stating pt did not know how to use his pen. Call to patient this am, no answer- message left for patient recommending he go to pharmacy to have them show him how to use pen, or call his PCP and go to office to have nurse review how to use pen with him. Anna MCKEONN RN ACM
== END 2020-03-13 17:20 | disposition home or self-care (01) | DRG 637 ==
LOC: ED 16:02 → PCU 16:47
PROVIDERS: Admitting Provider Internal Medicine; Emergency Provider Emergency Medicine; PCP Family Medicine Geriatric Medicine; Visit Provider Internal Medicine
DX: E11.649 Type 2 diabetes mellitus with hypoglycemia without coma (principal); G93.41 Metabolic encephalopathy; I50.43 Acute on chronic combined systolic (congestive) and diastolic (congestive) heart failure; I24.8 Other forms of acute ischemic heart disease; E87.6 Hypokalemia; I11.0 Hypertensive heart disease with heart failure; I27.21 Secondary pulmonary arterial hypertension; E11.42 Type 2 diabetes mellitus with diabetic polyneuropathy; E78.5 Hyperlipidemia, unspecified; G47.33 Obstructive sleep apnea (adult) (pediatric); I73.9 Peripheral vascular disease, unspecified; I35.0 Nonrheumatic aortic (valve) stenosis; I25.5 Ischemic cardiomyopathy; I25.10 Atherosclerotic heart disease of native coronary artery without angina pectoris; M48.061 Spinal stenosis, lumbar region without neurogenic claudication; J44.9 Chronic obstructive pulmonary disease, unspecified; D64.9 Anemia, unspecified; Z66 Do not resuscitate; F17.200 Nicotine dependence, unspecified, uncomplicated; E66.9 Obesity, unspecified; Z79.02 Long term (current) use of antithrombotics/antiplatelets; Z79.4 Long term (current) use of insulin; Z79.01 Long term (current) use of 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s; Z78.9 Other specified health status; Z82.49 Family history of ischemic heart disease and other diseases of the circulatory system; Z83.3 Family history of diabetes mellitus; Z86.718 Personal history of other venous thrombosis and embolism; Z91.19 Patient's noncompliance with other medical treatment and regimen; I25.2 Old myocardial infarction; Z68.30 Body mass index [BMI] 30.0-30.9, adult; Z79.899 Other long term (current) drug therapy; E11.51 Type 2 diabetes mellitus with diabetic peripheral angiopathy without gangrene
CPT/HCPCS: 36415; 70450; 71045; 80048; 80053; 80320; 81001; 82962; 84484; 85025; 85610; 87635; 93005; 94799; 97110; 97162; 97166; 99285; 99406; J7030; G0480; U0003

== ENCOUNTER 2020-04-22 17:53 | Inpatient (IN) | payer MEDICARE, SELFPAY ==
[2020-03-19 16:57] VITALS: BMI 29.9
[2020-04-22] VITALS (25 sets, daily range): BP systolic 87–212; BP diastolic 60–138; PULSE 87–160; RESP 12–42; TEMP 35.9–37.4; O2SAT 85–100; BMI 33.2; BMI 30.7
--- NOTE | 2020-04-22 18:09 | EKG12_ITS ---
Test Reason : Blood Pressure : / mmHG Vent. Rate : 158 BPM Atrial Rate : 158 BPM P-R Int : 146 ms QRS Dur : 074 ms QT Int : 228 ms P-R-T Axes : 024 023 144 degrees QTc Int : 369 ms Sinus tachycardia Low voltage QRS Cannot rule out Anterior infarct , age undetermined Marked ST abnormality, possible lateral subendocardial injury Abnormal ECG Confirmed by EVARISTO CHAPA, JORDAN ([id number]), social media editor STANISLAV OVIEDO ([id number]) on 04/23/2020 9:46:59 AM Referred By: Confirmed By:JORDAN LOERA MD
--- NOTE | 2020-04-22 18:13 | RAD_ITS ---
STUDY: X-RAY CHEST REASON FOR EXAM: Male, 69 years old. CHEST PAIN AND SOB TECHNIQUE: Single frontal view of the chest. COMPARISON: Chest x-ray 03/11/2020 FINDINGS: Moderate diffuse interstitial edema. There is no demonstrated pleural abnormality. Normal size heart. Normal mediastinum and thu. Normal visualized pulmonary arteries. Normal visualized aortic arch and descending thoracic aorta. Normal visualized thoracic spine. Normal visualized ribs, clavicles, and shoulders. There is no demonstrated abnormality of the visualized soft tissue structures of the upper abdomen. RAD/Chest 1 View (Portable) IMPRESSION: Moderate interstitial edema Electronically Signed: Mike Byrnes MD at 18:52 EDT , Service support ,
--- NOTE | 2020-04-22 18:20 | ED.DCSUM_ITS ---
History of Present Illness Chief Complaint: Chest Pain Informant: Patient Narrative: Patient is a 69-year-old male who presents to the emergency department for shortness of breath and chest pain. States that this has been progressive getting worse over the past 2 to 3 days. Upon arrival to the emergency department he is in acute respiratory distress. He was given aspirin and nitro by the ambulance. He believes that the nitro did slightly help. He denies any significant cough. No significant leg pain or swelling. He did have a heart attack 1-1/2 months ago. He is on warfarin with a history of DVT. His chest pain is substernal. No radiation to his back or abdomen. He denies any known sick contacts. No fevers or chills. No nausea/vomiting or diarrhea. He is a current every day smoker. He does not wear oxygen at baseline. Patient had a heart cath performed on 02/27/2020 which showed proximal RCA small vessel occluded left main 30%, LAD diffusely diseased up to 50%. Circumflex diffusely diseased 40% optimization of medical therapy was advised. At that time his EF was 35%. Past Medical History - Allergies and Home Meds Allergies/Adverse Reactions: Allergies No Known Allergies Allergy (Verified 03/19/20 16:25) Past Medical History: - - CAD, cardiomyopathy, hypertension, hyperlipidemia, diabetes, DVT Surgical History: - - Lumbar laminectomy and fusion x 2, LLE surgery for clot retrieval with follow-up I&D x2 for infection, recent right great toe surgery as well as follow-up balloon angioplasties per vascular surgery during recent admission. Smoking Status: Current every day smoker - Family History Paternal Family History: Reports: Diabetes Maternal Family History: Reports: Diabetes, Heart Disease, Hypertension, - - History of brain aneurysms. Review of Systems All systems negative except as indicated General: Denies: Chills, Fever, Sweats Eyes: Denies: Visual changes - bilaterally, Diplopia ENT: Denies: Rhinorrhea, Sore throat Cardiovascular: Reports: Chest pain. Denies: Palpitations Respiratory: Reports: Dyspnea. Denies: Cough Gastrointestinal: Reports: Melena, Hematochezia. Denies: Abdominal pain, Nausea, Vomiting, Diarrhea Genitourinary: Denies: Dysuria, Hematuria, Frequency Musculoskeletal: Denies: Back pain, Extremity Pain Skin: Denies: Rash, Wounds Neurological: Denies: Headache, Weakness, Numbness Physical Exam Vital Signs/Narrative: Vital Signs Temp Pulse Resp BP Pulse Ox 04/22/20 18:01 160 H 32 H 212/131 H 94 04/22/20 17:54 96.7 F L 157 H 32 H 85 Inital Vital Signs reviewed: Yes General: Well nourished, Well developed, Acute Distress, - - Diaphoretic, pale Head: Normocephalic, Atraumatic Eyes: Perrl, EOMI ENT: Moist mucous membranes, No rhinorrhea Neck: Supple, Nontender Cardiovascular: Regular rhythm, No murmurs, Tachycardia Respiratory: - - In acute respiratory distress, tachypneic, speaking in few word sentences. Crackles heard throughout. Abdomen: Soft, Tender - Diffuse. Negative for: Guarding Back: Nontender, Normal Inspection Extremities: Nontender. Negative for: Edema, Calf Tenderness Skin: No rash. Negative for: Trauma Neurological: Alert, Oriented x3, Normal Strength, Normal Sensation Diagnostic/Tx/Re-eval - EKG Initial EKG Interpretation: - - Rate of 158 bpm in sinus tachycardia. Normal intervals. Normal axis. Due to baseline artifact it is technically difficult to interpret but no significant ST elevations present. Mild lead I ST depression. Follow-up EKG Interpretation: - - After treatment patient's heart rate did come down. Current rate of 108 bpm in a sinus tachycardia. Normal intervals normal axis. Mild ST elevation in aVR. He has ST depression in lead I and aVL. Otherwise no significant ST elevations or depressions. Very mild ST depression in lateral leads. Prior EKG for comparison was performed on March 112019 which is similar in appearance. - Medical Decision Making Patient presents emerged part for acute respiratory distress. He is complaining of chest pain and shortness of breath. He is requiring 15 L by facemask and satting in the mid 90s. Patient's physical exam is consistent with acute CHF exacerbation. We will give him a dose of sublingual nitro and started on nitro drip. He is started on BiPAP immediately. EKG obtained which was tachycardic but did not show any signs of acute ischemia. Basic lab work being obtained along with chest x-ray. X-ray showed pulmonary vascular congestion. Despite being on BiPAP he was still very tachypneic although he is symptomatically starting to feel better. He is given multiple doses of nitro given his chest pain and heart failure. He is still very tachypneic so he was given a dose of Vasotec. After these treatments patient was starting to improve. He subjectively feels better as well as his heart rates come down and respiratory rate. He did have some lower blood pressure readings but never became significantly hypotensive. Lab work shows his troponin to be 1.57 with a lactic acid of 4.5 and a glucose of 473 without any evidence of DKA. Will bring into the hospital for further evaluation and management. He understands and is agreeable with this plan. - Critical Care Time Critical care time (excluding procedures): 30-74 minutes, Discussing w/Patient &/or Family/Reformatory Attendant, Discussing w/Consultants, Arranging Admission or Transfer, Performing Direct Patient Care at Bedside ED Disposition - Plan for ED Patient: Disposition: Acute Care Hospital [facility] Diagnosis: Respiratory distress, Acute exacerbation of CHF (congestive heart failure), Hyperglycemia, Elevated troponin, Lactic acidosis, Acute hypoxemic respiratory failure
[2020-04-22] MEDS: Nitroglycerin Infusion 250 ML 3 MG IV (18:24)
[2020-04-22 18:27] LABS: Absolute Lymphocyte Count 4.07 X10^3/uL (0.83-4.51); Absolute Neutrophil Count 9.8 X10^3/uL (2.0-7.7); Basophil# 0.07 X10^3/uL; Basophil% 0.5 % (0-1); Eosinophil# 0.09 X10^3/uL; Eosinophils% 0.6 % (0-5); Hemoglobin 12.3 g/dL (13.0-16.5); Lymphocyte # 4.07 X10^3/ul (4.0); Lymphocyte % 26.6 % (19-41); Mean Corp Hgb Conc 30.8 g/dL (32-36); Mean Corpuscular Hgb 28.1 pg (27.0-32.0); Mean Corpuscular Volume 91.3 fL (80-94); Mean Platelet Vol. 10.9 fl (6.2-12.0); Monocyte# 1.26 X10^3/uL; Monocyte% 8.2 % (0-10); NRBC Flagged by Analyzer 0 % (0-5); Neutrophil # 9.75 X10^3/uL (2.7-7.7); Neutrophil % 63.8 % (47-70); Platelet Count 295 K/mm3 (150-450); RBC Distribution Width CV 15.9 % (11.6-14.6); RBC Distribution Width SD 54.1 fl (35.1-43.9); Red Blood Count 4.38 M/mm3 (4.6-6.2); White Blood Count 15.3 K/mm3 (4.4-11.0)
[2020-04-22] MEDS: Nitroglycerin SL (ED/IMG/CATH) 0.4 MG TABLET SUBLINGUAL ×3 (18:31→19:21)
[2020-04-22 18:32] LABS: International Normalized Ratio 1.8; Prothrombin Time (Protime)PT. 20.4 SECONDS (11.7-14.9)
--- NOTE | 2020-04-22 18:57 | CPS ---
Pt.'s EPAP and FiO2 increased due to increase in pt.'s oxygenation demands.
[2020-04-22 18:58] LABS: BNP,B-Type NATRIURETIC PEPTIDE 895.2 pg/mL (0-100)
[2020-04-22] MEDS: Enalaprilat 1.25 MG/ML Vial 0.625 MG IV (19:18)
[2020-04-22 19:50] LABS: Lactic Acid 4.5 mmol/L (0.4-1.9)
[2020-04-22 19:51] LABS: Anion Gap 8 (5-15); BUN 15 mg/dL (7-18); BUN/Creat Ratio 10.2 RATIO (10-20); Chloride 104 mmol/L (98-107); Creatinine, Serum 1.47 mg/dL (0.70-1.30); EST Glomerular Filtration Rate 51 mL/min (>60); Est Glom Filt Rate - Afr Amer 61 mL/min (>60); Estimated Creatinine Clearance 51.94 ml/min; Glucose 473 mg/dL (74-106); Potassium 4.4 mmol/L (3.5-5.1); Sodium Level 136 mmol/L (136-145)
--- NOTE | 2020-04-22 19:56 | EKG12_ITS ---
Test Reason : DYSRHYTHMIA Blood Pressure : / mmHG Vent. Rate : 108 BPM Atrial Rate : 108 BPM P-R Int : 144 ms QRS Dur : 082 ms QT Int : 348 ms P-R-T Axes : 054 035 146 degrees QTc Int : 466 ms Sinus tachycardia with occasional Premature ventricular complexes Septal infarct , age undetermined ST & T wave abnormality, consider lateral ischemia Abnormal ECG Confirmed by EVARISTO CAHPA, JORDAN ([id number]), graphic editor STANISLAV OVIEDO ([id number]) on 04/23/2020 9:47:18 AM Referred By: REBEL Confirmed By:JORDAN LOERA MD
--- NOTE | 2020-04-22 20:43 | PCM.HP.STD ---
Problem List (1) Hyperglycemia Status: Acute (2) Lactic acidosis Status: Acute (3) Atherosclerosis of coronary artery without angina pectoris Status: Chronic Qualifiers: Coronary Disease-Associated Artery/Lesion type: [place] artery [place] vs. transplanted heart: [place] heart Qualified Code(s): I25.10 - Atherosclerotic heart disease of [place] coronary artery without angina pectoris (4) Ischemic cardiomyopathy Status: Chronic (5) Essential (primary) hypertension Status: Chronic (6) Peripheral vascular disease Status: Chronic (7) Hyperlipidemia Status: Chronic Qualifiers: Hyperlipidemia type: unspecified Qualified Code(s): E78.5 - Hyperlipidemia, unspecified (8) Nicotine dependence Status: Chronic (9) COPD (chronic obstructive pulmonary disease) Status: Chronic Qualifiers: Emphysema type: unspecified History of Present Illness Date of Admission: 04/22/20 Chief Complaint: Shortness of breath and chest pain. The patient is a 69 year old M with past medical history as mentioned above presented to the emergency room because of chest pain and shortness of breath. At this time, he mentioned that his main presenting complaint is shortness of breath. It is started 2 days ago with rapidly worsening shortness of breath, initially was with exertion but since today morning, it has been even at rest, aggravated by any type of activity, associated with productive cough of white sputum, not relieved by rest, associated with mild vague chest discomfort throughout and no other associated symptoms. He denied fever or chills. He denied abdominal pain, nausea or vomiting. He denied urinary symptoms. In the emergency department, patient was afebrile, dyspneic, tachypneic, tachycardic, blood pressure was elevated, pulse ox was 85% on room air. He was started on BiPAP. His routine blood work was remarkable for leukocytosis, creatinine 1.47. Blood glucose was 473, there was no evidence of DKA. Lactic acid was 4.5. EKG revealed sinus tachycardia, nonspecific T wave changes, no acute ST elevation. Troponin was elevated at 1.57. BNP was 895. Chest x-ray showed significant bilateral pulmonary vascular congestion with fluid in the fissure on the right lung. Reportedly, ABG revealed pH of 7.27, PCO2 of 39 and PO2 of 86. Patient was started on IV nitroglycerin drip, blood pressure and heart rate improved as well as oxygenation. 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 Past Medical History Past Medical History (Chronic Problems): Chronic Problems (Last Updated 04/22/20 @ 20:[address] Juan Claros MD) Type 2 diabetes mellitus (Chronic) Lumbar spinal stenosis (Chronic) Atherosclerosis of coronary artery without angina pectoris (Chronic) Non-STEMI (non-ST elevated myocardial infarction) (Chronic 02/25/20) Ischemic cardiomyopathy (Chronic) Nonrheumatic aortic (valve) stenosis (Chronic) Secondary pulmonary arterial hypertension (Chronic) Essential (primary) hypertension (Chronic) Peripheral vascular disease (Chronic) Hyperlipidemia (Chronic) Nicotine dependence (Chronic) COPD (chronic obstructive pulmonary disease) (Chronic) Obstructive sleep apnea (Chronic) Medical History: Medical History (Last Updated 04/22/20 @ 20:[address] Juan Claros MD) Lumbar spinal stenosis (Chronic) M48.06 Non-STEMI (non-ST elevated myocardial infarction) (Chronic) Onset Date: 02/25/20 I21.4 Ischemic cardiomyopathy (Chronic) I25.5 Nonrheumatic aortic (valve) stenosis (Chronic) I35.0 Secondary pulmonary arterial hypertension (Chronic) I27.21 Essential (primary) hypertension (Chronic) I10 Peripheral vascular disease (Chronic) I73.9 Hyperlipidemia (Chronic) E78.5 Nicotine dependence (Chronic) F17.200 COPD (chronic obstructive pulmonary disease) (Chronic) J44.9 Obstructive sleep apnea (Chronic) G47.33 Back problem M53.9 Bleeding disorder D69.9 DVT (deep venous thrombosis) Diabetic foot infection E11.628, L08.9 Erectile dysfunction N52.9 GERD (gastroesophageal reflux disease) K21.9 Gangrene of toe I96 IDDM (insulin dependent diabetes mellitus) E11.9, Z79.4 Neuropathy G62.9 Osteomyelitis M86.9 Scabies infestation Tobacco abuse Z72.0 Type 2 diabetes mellitus with diabetic polyneuropathy E11.42 Type 2 diabetes mellitus with diabetic polyneuropathy E11.42 Ulcer of right foot with fat layer exposed L97.512 Ulcer of right foot with necrosis of bone L97.514 Hyperglycemia R73.9 Pulmonary edema J81.1 Respiratory distress R06.03 Allergies No Known Allergies Allergy (Verified 03/19/20 16:25) Home Medications: Ambulatory Orders Medication Instructions Recorded Zolpidem Tartrate [Ambien] 10 mg PO QHS 11/06/15 Multivitamin [Daily Multiple 1 ea PO DAILY 07/17/19 Vitamin] Baclofen 10 mg PO TID 03/11/20 Roflumilast [Daliresp] 500 mcg PO DAILY 03/11/20 Insulin Glargine [Lantus SoloStar 25 units SUBCUT BID #1 pen 03/13/20 Pen] clopidogrel 75 mg tablet 75 mg PO DAILY #90 tab 03/19/20 furosemide 40 mg tablet 40 mg PO BID@1000,1800 #180 tab 03/19/20 rosuvastatin 40 mg tablet 40 mg PO QHS #90 tab 03/19/20 Aspirin [Aspirin, Baby] 81 mg PO DAILY@0800 04/22/20 Carvedilol 6.25 mg PO BID 04/22/20 Enoxaparin Sodium [Lovenox] 100 mg SQ Q12H 04/22/20 Insulin Lispro [Humalog KwikPen] 15 unit SUBCUT TIDAC 04/22/20 Omeprazole 40 mg PO DAILY 04/22/20 Potassium Chloride [Klor-Con M20] 20 meq PO BID 04/22/20 Warfarin [Coumadin] 2.5 mg PO DAILY 04/22/20 Surgical History: Surgical History (Last Reviewed 04/22/20 @ 20:[address] Juan Claros MD) History of left heart catheterization Onset Date: 02/27/20 Z98.890 Surgical History: - - Lumbar laminectomy and fusion x 2, LLE surgery for clot retrieval with follow-up I&D x2 for infection, recent right great toe surgery as well as follow-up balloon angioplasties per vascular surgery during recent admission. Psychiatric History: No pertinent psych hx Smoking Status: Current every day smoker Tobacco Use: Cigarettes Alcohol: None Drugs: None - *Family History Paternal History Items: Diabetes Maternal History Items: Diabetes, Heart Disease, Hypertension, - - History of brain aneurysms. Review of Systems Constitutional: Reports: Weakness. Denies: Anorexia, Chills, Fever Eyes: Denies: Blurred vision, Double vision, Drainage, Redness HEENT: Denies: Difficulty Hearing, Ear Pain, Eye Pain, Head Aches, Nasal bleeding, Nasal Congestion Cardiovascular: Reports: Chest Pain. Denies: Chest Pressure, Chest Tightness, Edema, Heaviness, Light Headedness, Orthopnea, Palpitations, Paroxysmal Noc. Dyspnea, Syncope Respiratory: Reports: Cough, Shortness of Breath, Shortness of breath at rest, Shortness of breath upon exertion, Sputum production Gastrointestinal: Denies: Abdominal Pain, Constipation, Diarrhea, Nausea, Vomiting Genitourinary: Denies: Dysuria, Frequency, Hematuria Musculoskeletal: Denies: Arm Pain, Back Pain, Foot Pain Skin: Denies: Dryness, Rash Neurological: Denies: Balance problems, Double vision, Change in Speech, Slurred speech, Confusion, Headaches, Incoordination Psychiatric: Denies: Anxiety, Depression Endocrine: Denies: Change in Body Habitus, Polydipsia, Polyuria VTE Information - Inpt Only VTE Present on Admission: No VTE Mechan Device Prophylaxis: SCD's VTE Pharm Prophylaxis ordered?: Yes Patient Problems: Active and Suspected Problems (Last Updated 04/22/20 @ 20:[address] Juan Claros MD) Acute on chronic combined systolic and diastolic CHF (congestive heart failure) (Acute) Hyperglycemia (Acute) Lactic acidosis (Acute) - Physical Exam Vitals/I&O's: Vital Signs Temp Pulse Resp BP Pulse Ox 96.7 F L 104 H 34 H 108/68 98 04/22/20 17:54 04/22/20 20:27 04/22/20 20:27 04/22/20 19:22 04/22/20 20:27 Oxygen Flow Rate (L/min) 15 Oxygen Delivery Method Bi-pap Weight: 238 lb 1.588 oz Body Mass Index (BMI) 33.2 Finger Stick Blood Glucose 73 Intake and Output for Last 24 Hours 04/20/20 04/21/20 04/22/20 23:59 23:59 23:59 Intake Total 8.60 / 8.60 Balance 8.60 / 8.60 General: Alert, Oriented x3, Cooperative, - - Moderately short of breath, on BiPAP. HEENT: Atraumatic, PERRLA, EOMI, Normocephalic Oral: Moist Mucosa, No Gingival or Mucosal Lesions/ Ulcerations Neck: Supple, No JVD, Negative Carotid Bruits, Trachea Midline, Thyroid Normal Size and Texture Lungs: No wheeze, Diminished, Rales, Rhonchi, Short of Breath, Tachypneic, - - Decreased with sounds bilateral, bilateral rhonchi, coarse crackles at the bases Cardiovascular: Regular rate, Regular Rhythm, Normal S1, Normal S2, PMI Normal Abdomen: Bowel Sounds Present, Soft, Non Tender, Non-Distended, No Hepato-splenomegaly Extremities: No clubbing, No cyanosis, No edema Skin: No rashes, No breakdown Lymphatic: No Cervical, Supraclavicular, or Inguinal Adenopathy Neurological: Cranial nerves II-XII grossly intact, Motor Exam 5/5 strength throughout Psych/Mental Status: Appropriate, Flat Affect, Alert and oriented to time, place, person, mood and affect Laboratory Results 04/22/20 18:05: WBC 15.3 H, RBC 4.38 L, Hgb 12.3 L, Hct 40.0, MCV 91.3, MCH 28.1, MCHC 30.8 L, RDW Std Deviation 54.1 H, RDW Coeff of Estrada 15.9 H, Plt Count 295, MPV 10.9, Immature Gran % (Auto) 0.300, Neut % (Auto) 63.8, Lymph % (Auto) 26.6, Steele % (Auto) 8.2, Eos % (Auto) 0.6, Baso % (Auto) 0.5, Absolute Neuts (auto) 9.8 H, Absolute Lymphs (auto) 4.07, Nucleated RBC % 0 04/22/20 18:05: PT 20.4 H, INR 1.8 04/22/20 18:05: Sodium 136, Potassium 4.4, Chloride 104, Carbon Dioxide 24.0, Anion Gap 8, BUN 15, Creatinine 1.47 H, Estim Creat Clear Calc 51.94, Est GFR (MDRD) Af Amer 61, Est GFR (MDRD) Non-Af 51 L, BUN/Creatinine Ratio 10.2, Glucose 473 H*, Calcium 9.0, Magnesium 2.0, Troponin I 1.570 H* 04/22/20 18:05: B-Natriuretic Peptide 895.2 H 04/22/20 18:22: Lactic Acid 4.5 H* 04/22/20 18:30: COVID-19 (SCAR) Pending Clinical Impression(s) from Imaging Studies Chest X-Ray 04/22/20 18:13 IMPRESSION: Moderate interstitial edema Electronically Signed: Mike Byrnes MD at 18:52 EDT , Service support , Current Medications Nitroglycerin/Dextrose () 250 mls @ 3 mls/hr IV .[id number] STA; Protocol Stop: 04/26/20 05:28 Last Titration: 04/22/20 19:22 Dose: 0 mcg/min, 0 mls/hr Documented by: Assessment/Plan All Active Problems (Last Updated 04/22/20 @ 20:[address] 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 EKG revealed sinus tachycardia with nonspecific T wave, ST changes, no acute segment changes. Troponin is elevated. Patient was started on IV nitroglycerin drip, blood pressure, heart rate as well as oxygenation improved. ABG revealed pH of 7.27, PCO2 of 39 and PO2 of 87 while on BiPAP. Plan: Admit to ICU, critical care monitoring, serial cardiac enzymes, start IV Lasix, input output chart, insert Abreu catheter, continue Coreg, aspirin and Plavix, cardiology consult, repeat CBC and BMP tomorrow morning, PT OT evaluation and treatment when appropriate. #2 non-ST elevation DE: This is probably secondary to acute CHF. EKG reviewed. Troponin is elevated. Patient reported chest pain but it is getting better. Patient had cardiac catheterization on Nov, 2019 that revealed EF of 35%, mild irregularities of the left main artery with less than 30% stenosis, diffusely diseased left circumflex up to 40 % stenosis, diffusely diseased LAD up to 50%, proximal RCA is occluded. At that time, no interventions were performed and medical treatment continued. During the same admission on February,, 2D echocardiogram revealed ejection fraction 45%, stage II diastolic dysfunction, pulmonary artery pressure is 45 consistent with mild pulmonary hypertension. Plan: Cardiac monitoring, serial cardiac enzymes, continue aspirin, Coreg, Plavix, continue Coumadin, cardiology consult. #3 lactic acidosis: This is likely due to tissue hypoxemia. No evidence of infection. Patient has been afebrile although he does have leukocytosis which is probably reactive. Blood culture sent. No indication for IV antibiotics. #4 acute kidney injury: Again, likely due to tissue hypoperfusion secondary to CHF. Baseline creatinine has been normal. Admission creatinine is 1.47. Patient will be started on IV Lasix for diuresis, expect kidney function to go up, plan to repeat BMP tomorrow morning. #5 hyperglycemia: Without evidence of DKA. Blood glucose is 473. Serum bicarb and anion gap are normal. ABG revealed normal pH. Plan: Accu-Cheks every 4 hours, insulin sliding scale, continue Lantus twice daily as well as pre-meal Humalog. Hemoglobin A1c was 13.3% on June,. Will check hemoglobin C at this time as well. #6 CAD: Without prior history of cardiac interventions. EKG and cardiac labs are reviewed as above. Recent cardiac activity as above. Plan to continue aspirin, Plavix, Coreg, statins, Coumadin and Lovenox for bridging. #7 type 2 diabetes mellitus: Uncontrolled. Plan as above, will check hemoglobin A1c again. #8 chronic systolic CHF/ischemic cardiomyopathy: He is in acute on chronic CHF as mentioned above. Plan as above. #9 COPD: Currently, on BiPAP. ABG reviewed as above. Plan for bronchodilators, continue BiPAP. #10 hypertension: Initially, blood pressure was elevated but improved with IV nitroglycerin drip. Plan to continue Coreg, IV Lasix. #11 peripheral vascular disease: Stable, continue aspirin and statins as well as Plavix. #12 CODE STATUS: When I asked the patient about the CODE STATUS, he said he is not sure at this time. I requested the patient to think about his CODE STATUS and what we should do in case of cardiorespiratory arrest. #13 DVT prophylaxis: INR is 1.8, at this activity, continue Coumadin, continue Lovenox for bridging. This note was generated with [employer] software. It may contain incorrect words, spelling, and punctuation that were not noted in checking the note before signing. Inpatient E&M: [id number] Init Hosp L3
[2020-04-22 20:51] LABS: Allen Test POS; Blood Gas Specimen Type ART; EPAP 14; FI02 80; IPAP 20; O2 Delivery Device Bi Pap; RR 12; SITE R RADIAL
[2020-04-22 20:52] LABS: Base Excess -2 mmol/L (-2 to +2); PO2 87 mmHG (75-100); SO2 96 % (95-99); Time Given 1941; Total Carbon Dioxide 24 mmol/L; pCO2 39.5 mmHg (35-45); pH 7.37 (7.35-7.45)
--- NOTE | 2020-04-22 22:09 | NURSING ---
2135: Patient transferred into room ICU 02 in stable condition from ED with patient belongings including cell phone, economic specialist, wallet, and clothing.
[2020-04-22 22:42] LABS: Hemoglobin A1c 9.7 % (3.8-5.6)
[2020-04-22 22:45] LABS: Lactic Acid 1.6 mmol/L (0.4-1.9)
[2020-04-22 22:49] LABS: Reflex Lactate? Y
[2020-04-22] MEDS: Insulin Lispro 100 UNIT/ML INSULN.PEN SC (23:54)
[2020-04-22] MEDS: Furosemide 40 MG/4 ML Vial IV (23:56)
[2020-04-23] VITALS (31 sets, daily range): BP systolic 84–116; BP diastolic 58–76; PULSE 82–99; RESP 12–37; TEMP 37.1–37.4; O2SAT 93–100
[2020-04-23] MEDS: Atorvastatin Calcium 80 MG Tablet PO ×2 (00:09→21:31)
[2020-04-23] MEDS: Zolpidem Tartrate 5 MG Tablet PO ×2 (00:09→21:31)
[2020-04-23] MEDS: Carvedilol 6.25 MG Tablet PO ×3 (00:10→21:31)
[2020-04-23] MEDS: Ipratropium/Albuterol Sulfate 3 ML AMPUL.NEB INHALATION ×4 (00:15→19:05)
[2020-04-23 00:41] LABS: Bedside Glucose 438 mg/dL (70-110)
--- NOTE | 2020-04-23 02:30 | EKG12_ITS ---
Test Reason : ELEVATED TROPONIN Blood Pressure : / mmHG Vent. Rate : 090 BPM Atrial Rate : 090 BPM P-R Int : 158 ms QRS Dur : 082 ms QT Int : 366 ms P-R-T Axes : 033 016 140 degrees QTc Int : 447 ms Normal sinus rhythm Normal ECG When compared with ECG of 22-APR-2020 18:00, MANUAL COMPARISON REQUIRED, DATA IS UNCONFIRMED Confirmed by TIKA CHAPA, SHEN ([id number]), film or videotape editor STANISLAV OVIEDO ([id number]) on 04/30/2020 11:25:46 AM Referred By: TALYA Confirmed By:NUHA VILLELA MD
[2020-04-23] MEDS: Insulin Lispro 100 UNIT/ML INSULN.PEN SC ×4 (02:35→15:00)
[2020-04-23 05:01] LABS: Bedside Glucose 364 mg/dL (70-110)
[2020-04-23 05:11] LABS: Absolute Lymphocyte Count 2.42 X10^3/uL (0.83-4.51); Absolute Neutrophil Count 5.4 X10^3/uL (2.0-7.7); Basophil# 0.03 X10^3/uL; Basophil% 0.3 % (0-1); Eosinophil# 0.05 X10^3/uL; Eosinophils% 0.6 % (0-5); Hematocrit 33.8 % (40-54); Hemoglobin 10.6 g/dL (13.0-16.5); Lymphocyte # 2.42 X10^3/ul (4.0); Lymphocyte % 27.3 % (19-41); Mean Corp Hgb Conc 31.4 g/dL (32-36); Mean Corpuscular Volume 89.4 fL (80-94); Mean Platelet Vol. 10.6 fl (6.2-12.0); Monocyte# 0.92 X10^3/uL; Monocyte% 10.4 % (0-10); NRBC Flagged by Analyzer 0 % (0-5); Neutrophil # 5.42 X10^3/uL (2.7-7.7); Neutrophil % 61.1 % (47-70); Platelet Count 208 K/mm3 (150-450); RBC Distribution Width CV 15.9 % (11.6-14.6); RBC Distribution Width SD 52.7 fl (35.1-43.9); Red Blood Count 3.78 M/mm3 (4.6-6.2); White Blood Count 8.9 K/mm3 (4.4-11.0)
[2020-04-23 05:20] LABS: International Normalized Ratio 1.8; Prothrombin Time (Protime)PT. 20.2 SECONDS (11.7-14.9)
[2020-04-23 05:33] LABS: Anion Gap 3 (5-15); BUN 18 mg/dL (7-18); BUN/Creat Ratio 16.5 RATIO (10-20); Calcium,Total 8.4 mg/dL (8.5-10.1); Chloride 106 mmol/L (98-107); Creatinine, Serum 1.09 mg/dL (0.70-1.30); EST Glomerular Filtration Rate 72 mL/min (>60); Est Glom Filt Rate - Afr Amer 87 mL/min (>60); Estimated Creatinine Clearance 70.04 ml/min; Glucose 292 mg/dL (74-106); Potassium 3.6 mmol/L (3.5-5.1); Sodium Level 138 mmol/L (136-145)
[2020-04-23] MEDS: 0.9% Saline Lock 10 ML Syringe IV (06:02)
[2020-04-23] MEDS: Furosemide 40 MG/4 ML Vial IV ×2 (06:02→18:09)
[2020-04-23] MEDS: Insulin Lispro 100 UNIT/ML INSULN.PEN 15 UNIT SC ×3 (06:03→18:04)
[2020-04-23 06:10] LABS: Bedside Glucose 304 mg/dL (70-110)
--- NOTE | 2020-04-23 07:39 | CON.PCM_ITS ---
Problem List (1) NSTEMI (non-ST elevated myocardial infarction) Status: Acute (2) CAD (coronary artery disease) Status: Acute (3) Ischemic cardiomyopathy Status: Chronic (4) Acute on chronic combined systolic and diastolic CHF (congestive heart failure) Status: Acute (5) Nonrheumatic aortic (valve) stenosis Status: Chronic (6) Hyperlipidemia Status: Chronic Qualifiers: Hyperlipidemia type: unspecified Qualified Code(s): E78.5 - Hyperlipidemia, unspecified (7) Essential (primary) hypertension Status: Chronic (8) Type 2 diabetes mellitus Status: Chronic (9) COPD (chronic obstructive pulmonary disease) Status: Chronic Qualifiers: Emphysema type: unspecified (10) Obstructive sleep apnea Status: Chronic (11) Secondary pulmonary arterial hypertension Status: Chronic (12) Peripheral vascular disease Status: Chronic (13) Nicotine dependence Status: Chronic Reason for Consult Date of Consultation: 04/23/20 History of Present Illness: The patient is a 69 year [id number] white male with a past history which is included underlying hyperlipidemia, hypertension, diabetes mellitus, CAD, ischemic mediated cardiomyopathy, CHF, COPD, BEATRICE, nicotine dependence who presents for worsening shortness of breath/dyspnea with subsequent findings of abnormal troponin I levels and acute on chronic CHF-previously thought to be combined systolic/diastolic. He states for the last 3 days, despite taking his medications, he was progressively short of breath and dyspneic and having orthopnea and PND. He notes with this he did have some chest discomfort. He denied palpitations or rapid heart rates. There was no loss of consciousness. He denies any ongoing peripheral pitting edema. He presented to the emergency department for further evaluation. There he was found to have abnormal troponin I levels as well as findings thought compatible with acute CHF. He was treated medically and placed in the ICU for further evaluation and care. He states he does feel somewhat better with respect to his breathing since being in the hospital and initiation of IV diuretics. His troponin I levels have increased. His ECG has demonstrated findings compatible with sinus rhythm with low voltage QRS within anteroseptal WI pattern of indeterminate age and nonspecific ST and T wave changes. His chest x-ray suggested increased interstitial markings. Note, he does have a remote history of DVT. He has been on 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 therapy. He has been doing bridging 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 therapy with Lovenox awaiting his INR levels to increase. [] Past Medical History Allergies/Adverse Reactions: Allergies No Known Allergies Allergy (Verified 03/19/20 16:25) Home Medications: Ambulatory Orders Medication Instructions Recorded Zolpidem Tartrate [Ambien] 10 mg PO QHS 11/06/15 Multivitamin [Daily Multiple 1 ea PO DAILY 07/17/19 Vitamin] Baclofen 10 mg PO TID 03/11/20 Roflumilast [Daliresp] 500 mcg PO DAILY 03/11/20 Insulin Glargine [Lantus SoloStar 25 units SUBCUT BID #1 pen 03/13/20 Pen] clopidogrel 75 mg tablet 75 mg PO DAILY #90 tab 03/19/20 furosemide 40 mg tablet 40 mg PO BID@1000,1800 #180 tab 03/19/20 rosuvastatin 40 mg tablet 40 mg PO QHS #90 tab 03/19/20 Aspirin [Aspirin, Baby] 81 mg PO DAILY@0800 04/22/20 Carvedilol 6.25 mg PO BID 04/22/20 Enoxaparin Sodium [Lovenox] 100 mg SQ Q12H 04/22/20 Insulin Lispro [Humalog KwikPen] 15 unit SUBCUT TIDAC 04/22/20 Omeprazole 40 mg PO DAILY 04/22/20 Potassium Chloride [Klor-Con M20] 20 meq PO BID 04/22/20 Warfarin [Coumadin] 2.5 mg PO DAILY 04/22/20 Past Medical History (Chronic Problems): Chronic Problems (Last Updated 04/22/20 @ 20:[address] Juan Claros MD) Acute exacerbation of CHF (congestive heart failure) (Chronic) Type 2 diabetes mellitus (Chronic) Lumbar spinal stenosis (Chronic) Atherosclerosis of coronary artery without angina pectoris (Chronic) Non-STEMI (non-ST elevated myocardial infarction) (Chronic 02/25/20) Ischemic cardiomyopathy (Chronic) Nonrheumatic aortic (valve) stenosis (Chronic) Secondary pulmonary arterial hypertension (Chronic) Essential (primary) hypertension (Chronic) Peripheral vascular disease (Chronic) Hyperlipidemia (Chronic) Nicotine dependence (Chronic) COPD (chronic obstructive pulmonary disease) (Chronic) Obstructive sleep apnea (Chronic) Surgical History: - - Lumbar laminectomy and fusion x 2, LLE surgery for clot retrieval with follow-up I&D x2 for infection, recent right great toe surgery as well as follow-up balloon angioplasties per vascular surgery during recent admission. Psychiatric History: No pertinent psych hx - *Family History Paternal History Items: Diabetes Maternal History Items: Diabetes, Heart Disease, Hypertension, - - History of brain aneurysms. Smoking Status: Current every day smoker Tobacco Use: Cigarettes Alcohol: None Drugs: None Review of Systems - Review of Systems General: Denies: Fever, Night Sweats, Fatigue Cardiovascular: Reports: Chest Discomfort, Chest Discomfort at Rest, Shortness of Breath, Shortness of Breath at Rest, Shortness of Breath with Exertion, Orthopnea, PND. Denies: Peripheral Edema, Palpitations, Lightheadedness, Dizziness, Near Syncope, Syncope Respiratory: Reports: Shortness of Breath. Denies: Cough, Sputum Production, Hemoptysis Gastrointestinal: Denies: Hematemesis, Hematochezia, Melena Genitourinary: Denies: Dysuria, Hematuria Skin: Denies: Rash Subjectve: This is a 69-year-old white male who appears to be resting comfortably at the moment in no acute distress. Objective: Vital Signs Temp Pulse Resp BP Pulse Ox 99.0 F 90 17 116/75 99 04/23/20 07:00 04/23/20 07:00 04/23/20 07:00 04/23/20 07:00 04/23/20 07:00 Oxygen Flow Rate (L/min) 2 Oxygen Delivery Method Nasal Cannula Weight: 219 lb 12.814 oz Body Mass Index (BMI) 30.7 Finger Stick Blood Glucose 73 Intake and Output for Last 24 Hours 04/21/20 04/22/20 04/23/20 23:59 23:59 23:59 Intake Total 8.60 / 8.60 120 / 120 Output Total 200 / 400 1250 / 1250 Balance -191.40 / -391.40 -1130 / -1130 General: Awake, Alert, Oriented x 3, Cooperative, No Acute Distress, Obese HEENT: Atraumatic, Normocephalic, PERRL, EOMI, Sclera Non Icteric Neck: Supple, Good ROM, Positive JVD Lungs: Rales - Tony Bases Cardiovascular: Regular Rhythm, Normal S1, Normal S2 Abdomen: Bowel Sounds Present, Soft, Non Tender Extremities: No edema Neurological: No Focal Motor or Sensory Deficit Psych/Mental Status: Appropriate 04/22/20 18:05: WBC 15.3 H, RBC 4.38 L, Hgb 12.3 L, Hct 40.0, MCV 91.3, MCH 28.1, MCHC 30.8 L, Plt Count 295, MPV 10.9, Immature Gran % (Auto) 0.300, Neut % (Auto) 63.8, Lymph % (Auto) 26.6, [place] % (Auto) 8.2, Eos % (Auto) 0.6, Baso % (Auto) 0.5, Absolute Neuts (auto) 9.8 H, Nucleated RBC % 0 04/22/20 18:05: PT 20.4 H, INR 1.8 04/22/20 18:05: Sodium 136, Potassium 4.4, Chloride 104, Carbon Dioxide 24.0, Anion Gap 8, BUN 15, Creatinine 1.47 H, Est GFR (MDRD) Af Amer 61, Est GFR (MDRD) Non-Af 51 L, BUN/Creatinine Ratio 10.2, Glucose 473 H*, Calcium 9.0, Magnesium 2.0, Troponin I 1.570 H* 04/22/20 18:05: B-Natriuretic Peptide 895.2 H 04/22/20 18:22: Lactic Acid 4.5 H* 04/22/20 19:41: pH 7.37, Bicarbonate Actual 23.0, Base Excess -2, O2 Saturation 96, ABG pCO2 39.5, ABG pO2 87, Caesar Test POS 04/22/20 21:55: Hemoglobin A1c 9.7 H 04/22/20 21:55: Troponin I 21.100 H* 04/22/20 21:55: Lactic Acid 1.6 04/23/20 01:05: Troponin I 28.600 H* 04/23/20 05:00: WBC 8.9, RBC 3.78 L, Hgb 10.6 L, Hct 33.8 L, MCV 89.4, MCH 28.0, MCHC 31.4 L, Plt Count 208, MPV 10.6, Immature Gran % (Auto) 0.300, Neut % (Auto) 61.1, Lymph % (Auto) 27.3, [place] % (Auto) 10.4 H, Eos % (Auto) 0.6, Baso % (Auto) 0.3, Absolute Neuts (auto) 5.4, Nucleated RBC % 0 04/23/20 05:00: PT 20.2 H, INR 1.8 04/23/20 05:00: Sodium 138, Potassium 3.6, Chloride 106, Carbon Dioxide 29.0, Anion Gap 3 L, BUN 18, Creatinine 1.09, Est GFR (MDRD) Af Amer 87, Est GFR (MDRD) Non-Af 72, BUN/Creatinine Ratio 16.5, Glucose 292 H, Calcium 8.4 L Rhythm: Sinus rhythm; occasional PVC EKG: As noted above ECHO: 02-25-2020 Interpretation Summary Normal LV size. Mild concentric left ventricular hypertrophy. The estimated ejection fraction is 45 %. Stage 2 diastolic dysfunction. Mild to moderate aortic stenosis. Calculated aortic valve area (continuity equation) is 1.0 cm2. Pulmonary artery systolic pressure is 45 mmHg. Mild pulmonary hypertension. Cardiac Cath: CONCLUSIONS Diffuse coronary artery disease involving the left anterior descending artery and circumflex arterial system with no areas of focal high-grade stenosis. Totally occluded right coronary artery with [id number] collaterals and a basal inferior akinetic zone. Reduced left ventricular ejection fraction estimated at 35%. RECOMMENDATIONS Medical therapy DESCRIPTION OF PROCEDURE The patient arrived to the procedure lab. The risks and benefits of the procedure as well as a full description of our services here and current unavailability of surgical backup were fully explained to the patient and/or their significant other prior to the catheterization. The Timeout was completed, verifying the correct patient and procedure. The patient's procedural site was prepped and draped in the usual fashion. Local anesthetic was given subcutaneously to right groin region with Lidocaine 2%. Using a modified Seldinger technique, arterial access was obtained via the right femoral artery, a 5Fr sheath was inserted. Left Coronary Artery selective angiography was performed in multiple views using a 5 Fr. JL4 catheter. Right Coronary Artery selective angiography was then performed in multiple views using a 5 Fr. 3DRC (Paxton) catheter. Left Ventriculography was performed in RANDALL projection using a 5 Fr. Pigtail catheter. LV to AO pullback pressures were then recorded.Contrast was injected through the sheath and the Right Iliac and Femoral artery were assessed for possible closure device.The arterial sheath was pulled and manual compression applied until hemostasis is achieved. CORONARY ANGIOGRAPHY DOMINANCE: Co- Dominant LEFT HEART ASSESSMENT Left Ventricular Ejection Fraction: by LV Gram 35 % Inferior Basal Akinesis. Global Hypokinesis - Moderate Depressed Left Ventricular systolic function LEFT MAIN: Moderate calcification, Mild luminal irregularities less than 30% LEFT ANTERIOR DESCENDING ARTERY: Diffusely diseased up to 50 % CIRCUMFLEX ARTERY: Diffusely diseased up to 40 % RIGHT CORONARY ARTERY: PROX RCA: is occluded COLLATERAL FLOW: Collateral flow from Left to Right CXR: As noted above: Please see official report Assessment/Plan 1. Non-ST segment elevation WI The patient has findings compatible with an acute non-ST segment elevation WI. It is unclear at this time whether this is a type I event brought out by his underlying CAD versus a type II event brought out by his acute on chronic systolic/diastolic mediated CHF and diminished LV systolic function. At the moment he will continue to be monitored. He will continue medical management for his underlying cardiovascular condition. He can have repeat echocardiogram to reassess his left ventricular wall motion and systolic function. He may need repeat evaluation in the cardiac catheterization laboratory. 2. CAD He does have a history of CAD as previously described. He states he has been taking his medications as described. There is concern as to whether or not this is change what is brought out his recurrent events. Thus at the moment he will continue medical therapy, noninvasive evaluation, and be considered for future repeat invasive evaluation as deemed appropriate. However, with respect to repeat cardiac catheterization, he may need to have improvement of his underlying CHF symptoms first and allow his INR to decrease somewhat prior to such a procedure. 3. Ischemic mediated cardiomyopathy The patient does have an underlying ischemic mediated cardiomyopathy. Again this can be reassessed with an echocardiogram with respect to his overall LV wall motion systolic function. 4. Acute on chronic systolic/diastolic CHF At the present time the patient does have recurrent symptoms. He will need to be monitored. He will need to continue medical therapy with adjustment as needed to improve his CHF symptoms. He will continue noninvasive evaluation and possibly be in need of repeat invasive evaluation. 5. Aortic valve stenosis He has been diagnosed with aortic valve stenosis in the past. It is possible this may be a contributing factor with his overall cardiovascular condition. 6. Hyperlipidemia He should continue lipid-lowering therapy. 7. Hypertension His blood pressure can be monitored. His medications can be adjusted as needed. 8. Diabetes mellitus He will continue evaluation care per internal medicine. 9. COPD He does have a history of underlying COPD. He will need to follow with his primary care physician and/or pulmonology for that. 10. Obstructive sleep apnea He has a history of obstructive sleep apnea. He should continue with therapy per his primary care physician and/or pulmonology. 11. Peripheral vascular disease He has a history of DVT. He has been on 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 therapy or bridging 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 therapy. This will have to be adjusted as he may need repeat invasive cardiovascular evaluation. 12. Nicotine abuse He has been counseled on the need to discontinue tobacco smoking. He is receiving cessation therapy information from respiratory therapy. Comment: The patient's case has been discussed and reviewed with patient and Dr. Claros. This note was generated using a voice recognition system and there may be incorrect words, spelling or punctuation that were not noted when reviewing the office note prior to saving.
--- NOTE | 2020-04-23 07:54 | PN_ITS ---
Patient Problems: Active and Suspected Problems (Last Updated 04/22/20 @ 20:[address] Juan Claros MD) Respiratory distress (Acute) Elevated troponin (Acute) Acute hypoxemic respiratory failure (Acute) NSTEMI (non-ST elevated myocardial infarction) (Acute) CAD (coronary artery disease) (Acute) Acute on chronic combined systolic and diastolic CHF (congestive heart failure) (Acute) Hyperglycemia (Acute) Lactic acidosis (Acute) Reason for Visit: SOB and Chest pain, NSTEMI Objective: Patient is admitted with shortness of breath and chest pain. Shortness of breath initially on exertion which progressed to dyspnea at rest. Patient also has cough and brings up yellow sputum for 2 to 3 days but denies fever or chills. His chest pain/discomfort is mainly central, midsternal in location with no radiation but his main complaint is shortness of breath. In ED, blood pressure was low, systolic is 7/60. Troponin elevated maximum 28.6. Lactic acid 4.5 improved to 1.6. ABG 7.27/30 9/86 on BiPAP at 80% FiO2. Chest x-ray individually reviewed revealed bilateral pulmonary interstitial edema. Troponin elevated. Patient has history of smoking started in 30s about a pack per day. Has significant peripheral arterial disease and a surgical scar in the left leg probably left femoropopliteal bypass surgery. Multiple comorbidities including type 2 diabetes mellitus Physical exam General: Alert, Oriented x3, Cooperative HEENT: Atraumatic, PERRLA, EOMI, Normocephalic Oral: No Gingival or Mucosal Lesions/ Ulcerations Neck: Supple, No JVD, Negative Carotid Bruits Lungs: Air entry diminished in bilateral lung bases. No crepitation/rhonchi. No tachypnea, on 2 L of oxygen Cardiovascular: Regular rate, Regular Rhythm, Normal S1, Normal S2, ejection systolic murmur present over aortic area, LLSB pansystolic murmur and mitral area. Surgical scar over left calf and thigh. Abdomen: Bowel Sounds Present, Soft, Non Tender, Non-Distended : No renal angle tenderness. No suprapubic tenderness. Extremities: No edema, Capillary Refill Less than 3 Seconds Skin: No rashes, No breakdown Musculoskeletal: No Tenderness to Palpation of Joints or Extremities Neurological: Cranial nerves II-XII grossly intact, Deep Tendon Reflexes 2+/4 and Symmetrical, Neuro grossly intact Psych/Mental Status: Normal Affect, Appropriate. Vitals/I&O's: Vital Signs Temp Pulse Resp BP Pulse Ox 99.0 F 90 17 116/75 99 04/23/20 07:00 04/23/20 07:00 04/23/20 07:00 04/23/20 07:00 04/23/20 07:00 Oxygen Flow Rate (L/min) 2 Oxygen Delivery Method Nasal Cannula Weight: 219 lb 12.814 oz Body Mass Index (BMI) 30.7 Finger Stick Blood Glucose 73 Intake and Output for Last 24 Hours 04/21/20 04/22/20 04/23/20 23:59 23:59 23:59 Intake Total 8.60 / 8.60 120 / 120 Output Total 200 / 400 1250 / 1250 Balance -191.40 / -391.40 -1130 / -1130 Laboratory Results 04/22/20 18:05: WBC 15.3 H, RBC 4.38 L, Hgb 12.3 L, Hct 40.0, MCV 91.3, MCH 28.1, MCHC 30.8 L, RDW Std Deviation 54.1 H, RDW Coeff of Estrada 15.9 H, Plt Count 295, MPV 10.9, Immature Gran % (Auto) 0.300, Neut % (Auto) 63.8, Lymph % (Auto) 26.6, Beckham % (Auto) 8.2, Eos % (Auto) 0.6, Baso % (Auto) 0.5, Absolute Neuts (auto) 9.8 H, Absolute Lymphs (auto) 4.07, Nucleated RBC % 0 04/22/20 18:05: PT 20.4 H, INR 1.8 04/22/20 18:05: Sodium 136, Potassium 4.4, Chloride 104, Carbon Dioxide 24.0, Anion Gap 8, BUN 15, Creatinine 1.47 H, Estim Creat Clear Calc 51.94, Est GFR (MDRD) Af Amer 61, Est GFR (MDRD) Non-Af 51 L, BUN/Creatinine Ratio 10.2, Gl ucose 473 H*, Calcium 9.0, Magnesium 2.0, Troponin I 1.570 H* 04/22/20 18:05: B-Natriuretic Peptide 895.2 H 04/22/20 18:22: Lactic Acid 4.5 H* 04/22/20 18:30: COVID-19 (SCAR) Negative 04/22/20 19:41: Specimen Type ART, Sample Site R RADIAL, pH 7.37, Bicarbonate Actual 23.0, Total CO2 24, Base Excess -2, O2 Saturation 96, O2 % 80, ABG pCO2 39.5, ABG pO2 87, Caesar Test POS, Respiration Rate 12, O2 Delivery Device Bi Pap, EPAP 14, IPAP 20, Blood Gas Notified Whom ED , Blood Gas Notified Time 194004/22/20 21:55: Hemoglobin A1c 9.7 H 04/22/20 21:55: Troponin I 21.100 H* 04/22/20 21:55: Lactic Acid 1.6 04/22/20 23:52: POC Glucose 438 H 04/23/20 01:05: Troponin I 28.600 H* 04/23/20 02:24: POC Glucose 364 H 04/23/20 05:00: WBC 8.9, RBC 3.78 L, Hgb 10.6 L, Hct 33.8 L, MCV 89.4, MCH 28.0, MCHC 31.4 L, RDW Std Deviation 52.7 H, RDW Coeff of Estrada 15.9 H, Plt Count 208, MPV 10.6, Immature Gran % (Auto) 0.300, Neut % (Auto) 61.1, Lymph % (Auto) 27.3, Beckham % (Auto) 10.4 H, Eos % (Auto) 0.6, Baso % (Auto) 0.3, Absolute Neuts (auto) 5.4, Absolute Lymphs (auto) 2.42, Nucleated RBC % 0 04/23/20 05:00: PT 20.2 H, INR 1.8 04/23/20 05:00: Sodium 138, Potassium 3.6, Chloride 106, Carbon Dioxide 29.0, Anion Gap 3 L, BUN 18, Creatinine 1.09, Estim Creat Clear Calc 70.04, Est GFR (MDRD) Af Amer 87, Est GFR (MDRD) Non-Af 72, BUN/Creatinine Ratio 16.5, Glucose 292 H, Calcium 8.4 L 04/23/20 06:00: POC Glucose 304 H Current Medications Acetaminophen (Tylenol) 650 mg PO Q6H PRN PRN PRN Reason: Pain Score 1-10/Temp > 100.7 F Albuterol Sulfate (Ventolin Aerosols) 2.5 mg INHALATION Q2H PRN PRN PRN Reason: SOB/Wheezing Albuterol/Ipratropium (Duoneb) 3 ml INHALATION Q6H.RT [facility] Last Admin: 04/23/20 07:22 Dose: 3 ml Documented by: Aspirin (Aspirin, Baby) 81 mg PO DAILY@0800 [facility] Atorvastatin Calcium (Lipitor) 80 mg PO QHS [facility] Last Admin: 04/23/20 00:09 Dose: 80 mg Documented by: Carvedilol (Coreg) 6.25 mg PO BID [facility] Last Admin: 04/23/20 00:10 Dose: 6.25 mg Documented by: Clopidogrel Bisulfate (Plavix) 75 mg PO DAILY [facility] Enoxaparin Sodium (Lovenox) 100 mg SC Q12 [facility] Furosemide (Lasix) 40 mg IV Q8 [facility] Last Admin: 04/23/20 06:02 Dose: 40 mg Documented by: Nitroglycerin/Dextrose () 250 mls @ 3 mls/hr IV .[id number] [facility]; Protocol Stop: 04/26/20 05:28 Last Titration: 04/22/20 19:22 Dose: 0 mcg/min, 0 mls/hr Documented by: Sodium Chloride () 250 mls @ 15 mls/hr IV .[id number] PRN PRN Reason: Saline Flush Sodium Chloride () 250 mls @ 15 mls/hr IV .[id number] PRN PRN Reason: Additional IVPB Infusion Insulin Glargine (Lantus (Bkc)) 25 units SC BID [facility] Last Admin: 04/22/20 23:55 Dose: 25 u Documented by: Insulin Human Lispro (Humalog Kwikpen (Bk)) 15 unit SC TIDAC [facility] Last Admin: 04/23/20 06:03 Dose: 15 u Documented by: Insulin Human Lispro (Humalog Kwikpen (Bkc)) 0 unit SC Q4 [facility]; Protocol Last Admin: 04/23/20 06:03 Dose: 4 u Documented by: Lisinopril (Zestril) 2.5 mg PO BID [facility] Ondansetron HCl (Zofran) 4 mg IV Q8H PRN PRN PRN Reason: NAUSEA/VOMITING Pantoprazole Sodium (Protonix) 40 mg PO DAILY [facility] Senna/Docusate Sodium (Senokot-S, Donna-Colace) 2 tablet PO BID PRN PRN PRN Reason: Constipation Sodium Chloride () 10 - 40 ml IV UD PRN PRN Reason: SALINE FLUSH Last Admin: 04/23/20 06:02 Dose: 30 ml Documented by: Zolpidem Tartrate (Ambien (Generic)) 5 mg PO QHS [facility] Last Admin: 04/23/20 00:09 Dose: 5 mg Documented by: STROKE Vital Signs/Narrative: Vital Signs Temp Pulse Resp BP Pulse Ox 04/23/20 07:00 99.0 F 90 17 116/75 99 04/23/20 06:00 99.0 F 91 24 H 105/70 98 04/23/20 05:00 98.8 F 91 30 H 108/76 100 04/23/20 04:00 98.7 F 84 27 H 93/66 97 Medical Necessity - Tobacco Use Smoking Status: Current every day smoker Tobacco Use: Cigarettes Assessment/Plan All Active Problems (Last Updated 04/22/20 @ 20:[address] Juan Claros MD) Respiratory distress (Acute) Elevated troponin (Acute) Acute hypoxemic respiratory failure (Acute) NSTEMI (non-ST elevated myocardial infarction) (Acute) CAD (coronary artery disease) (Acute) Acute on chronic combined systolic and diastolic CHF (congestive heart failure) (Acute) Hyperglycemia (Acute) Lactic acidosis (Acute) This is a 69 years old male patient presented to the emergency room because of shortness of breath or chest pain, found to have acute on chronic combined diastolic and systolic CHF, non-ST elevation SD, lactic acidosis, acute kidney injury and hyperglycemia without evidence of DKA. #1 acute on chronic combined diastolic and systolic CHF: Patient is admitted in ICU. EKG shows sinus tachycardia 158/min with short routine worsened and ST depression in 1 and aVL suggestive of mild lateral ischemia although heart rotation ST-T changes from previous EKG of February 25, 2020 which showed sinus tachycardia at 145 beats minute. Patient was started on IV nitroglycerin drip which is discontinued now. Patient blood pressure and heart rate improved. Patient on Lasix, heart failure core measures, urine output monitoring. Since patient gained 10 pound weight in last 1 month since noncompliance with fluid and salt intake. Discussed with the carpenter streetcar. Plan is to optimize his medications and possible heart cath tomorrow later. #2 non-ST elevation SD due to acute on chronic systolic and diastolic heart failure: Patient predominant symptom was shortness of breath, VALADEZ progressed to dyspnea at rest. Troponin maxed at 28.6. BNP 895. Chest x-ray individually reviewed and shows interstitial edema. Patient had cardiac catheterization on Nov, 2019 that revealed EF of 35%, mild irregularities of the left main artery with less than 30% stenosis, diffusely diseased left circumflex up to 40 % stenosis, diffusely diseased LAD up to 50%, proximal RCA is occluded. At that time, no interventions were performed and medical treatment continued. 2D echo on February,, revealed ejection fraction 45%, stage II diastolic dysfunction, mild to moderate left ear, mild MR and pulmonary artery pressure is 45 consistent with mild pulmonary hypertension. continue aspirin, Coreg, Plavix, lisinopril low-dose continue Coumadin and therapeutic bridging Lovenox. #3 lactic acidosis: This is likely due to tissue hypoxemia. Patient denies fever at home and afebrile in the hospital. Leukocytosis resolved. Patient had nonspecific cough and sputum that may be from interstitial edema. Sepsis work- up ordered. No indication for IV antibiotics. #4 acute kidney injury most likely secondary to acute on chronic heart failure: Resolved. Admitting BUN/creatinine 15/1.47, most recent 18.09. Monitor kidney function and electrolytes. #5 hyperglycemia: Without evidence of DKA. Blood glucose is 473. Serum bicarb and anion gap are normal. ABG revealed normal pH, 7.3 on 80% FiO2 20/14. BiPAP during naps and rescue. Plan: Accu-Cheks every 4 hours, insulin sliding scale, continue Lantus twice daily as well as pre-meal Humalog. Hemoglobin A1c was 13.3% on June,. A1c recent 9.7 on 04/22. #6 CAD: Without prior history of cardiac interventions. #7 type 2 diabetes mellitus: Uncontrolled. Plan as above, will check hemoglobin A1c again. #8 chronic systolic CHF/ischemic cardiomyopathy: He is in acute on chronic CHF as mentioned above. Plan as above. #9 COPD: Currently, on BiPAP. ABG reviewed as above. Plan for bronchodilators, continue BiPAP. #10 hypertension: Initially, blood pressure was elevated but improved with IV nitroglycerin drip. Plan to continue Coreg, IV Lasix. #11 peripheral vascular disease: Stable, continue aspirin and statins as well as Plavix. 8 seems patient has left femoropopliteal bypass surgery based on the site of surgical scar although no surgical details available. #12 CODE STATUS: When I asked the patient about the CODE STATUS, he said he is not sure at this time. I requested the patient to think about his CODE STATUS and what we should do in case of cardiorespiratory arrest. #13 DVT prophylaxis: INR is 1.8, at this activity, continue Coumadin, continue Lovenox for bridging. Total time of the visit including total time spent in counseling or coordination of care, (more than 50% of the total time, spent in obtaining medical information from nurses and other ancillary care providers), discussion with instructional design consultant, review of labs and imaging is 30 minutes. Clinical Impression(s) from Imaging Studies Chest X-Ray 04/22/20 18:13 IMPRESSION: Moderate interstitial edema Inpatient E&M: [id number] [facility] Hosp L3
--- NOTE | 2020-04-23 07:58 | ECHOCS_ITS ---
Reason For Study: S/P PR Procedure This was a 2D Doppler, Color Flow transthoracic echocardiogram. The study was technically difficult. Contrast injection was performed. Exam performed portable in patient room. Left Ventricle Normal LV size. Moderate segmental systolic dysfunction (see wall motion). The estimated ejection fraction is 35 %. Posterior-Basal: Hypokinetic. Infero-Basal: Akinetic. Mid-Anterior : Hypokinetic. Mid-Lateral : Hypokinetic. Mid-Posterior: Hypokinetic. Mid-Inferior: Hypokinetic. Mid-inferoseptal : Hypokinetic. Mid-anteroseptal : Akinetic. Anterior [place] : Hypokinetic. Inferior [place] : Hypokinetic. Lateral [place] : Hypokinetic. Septal [place] : Akinetic. Right Ventricle Normal RV size. Normal systolic function. Atria The left atrium is mildly enlarged. Normal right atrium. No doppler evidence for ASD. Mitral Valve There is mild mitral annular calcification. Mild diffuse mitral valve thickening. Mild (1+) mitral valve insufficiency. Tricuspid Valve Normal tricuspid valve. Mild tricuspid valve insufficiency. Right ventricular systolic pressure estimated to be 37 mmHg. Aortic Valve Trisinus/trileaflet aortic valve. Mild diffuse aortic valve thickening. Mild diffuse aortic valve calcification. Moderate aortic stenosis. Trivial aortic valve insufficiency. Pulmonic Valve The pulmonic valve is not well visualized. Great Vessels Normal sized aortic root. Pericardium/Pleural No pericardial effusion. Medication Diluted definity 3.0ml given slow IV push to enhance endocardial definition. MMode/2D Measurements & Calculations LVIDd: 5.2 cm IVSd: 1.0 cm LVOT diam: 2.0 cm LVIDs: 4.4 cm LVPWd: 0.98 cm RVDd: 4.3 cm FS: 14.9 % LVOT area: 3.2 cm2 Ao root diam: 3.1 cm LAV(MOD-bp): 69.3 ml LA A4 area: 24.8 cm2 LAV(MOD-bp) Indexed: 31.6 ml/m2 LAV(MOD-sp2): 47.9 ml LAV(MOD-sp4): 78.5 ml LA dimension(2D): 4.7 cm RA A4 area: 15.1 cm2 Doppler Measurements & Calculations MV E max brian: 86.4 cm/sec Lat Peak E' Brian: 8.5 cm/sec Med Peak E' Brian: 4.7 cm/sec MV A max brian: 79.9 cm/sec E/E' lat: 10.2 E/E' med: 18.3 MV E/A: 1.1 MV V2 max: 86.9 cm/sec Ao V2 max: 261.6 cm/sec AI max brian: 269.3 cm/sec MV max P.0 mmHg Ao max P.4 mmHg AI max P.5 mmHg MV V2 mean: 52.7 cm/sec Ao V2 mean: 196.1 cm/sec AI dec slope: 211.0 cm/sec2 MV mean P.3 mmHg Ao mean P.9 mmHg AI P1/2t: 373.8 msec MV V2 VTI: 19.1 cm Ao V2 VTI: 45.2 cm MVA(VTI): 2.7 cm2 HAWK(I,D): 1.1 cm2 HAWK(V,D): 1.1 cm2 LV V1 max: 91.0 cm/sec SV(LVOT): 51.9 ml TR max brian: 291.0 cm/sec LV V1 max P.3 mmHg TR max P.9 mmHg LV V1 mean P.0 mmHg LV V1 mean: 68.5 cm/sec LV V1 VTI: 16.4 cm MV P1/2t-pr_phl: 41.6 msec Interpretation Summary The study was technically difficult. Contrast injection was performed. Moderate segmental systolic dysfunction (see wall motion). The estimated ejection fraction is 35 %. The left atrium is mildly enlarged. There is mild mitral annular calcification. Mild diffuse mitral valve thickening. Mild (1+) mitral valve insufficiency. Mild tricuspid valve insufficiency. Moderate aortic stenosis. Trivial aortic valve insufficiency. Right ventricular systolic pressure estimated to be 37 mmHg. Transmitral diastolic flow velocities suggest diastolic dysfunction (pseudonormal pattern). Ordering Physician: Feliciano Lewis Referring Physician: ALICIA BROWN Performed By: Susie Nieves, HUMACS, RVT
--- NOTE | 2020-04-23 09:40 | CASEMGMT ---
This RN CM participated in interdisciplinary ICU rounds at this time. Pt is off bipap and resp panel to be drawn. Pt with elevated troponins(21.1, 28.6) but per cardiology, medical management at this time due to 'acute on chronic sys/diastolic CHF and diminished systolic function.' ECHO to be done and repeat troponin to be drawn. Lula HOPE updated on recent visits in February for NSTEMI/CHF/DM and the fact that it was reported of bed bugs in home at that time. Pt repeatedly declines [facility] or [facility] for education/med assist d/t his cousin with whom he lives 'not wanting anyone in home.' Per Cassie mobility manager, pt has gained 10 lbs since he left end of February and Lula HOPE states pt keeps requesting fluids. Pt is currently on 2liters nc at this time. CM to complete phone interview with pt d/t precautions at this time. CM to follow for any further discharge planning/needs. Tj HOPE CM
[2020-04-23] MEDS: Enoxaparin 100 MG/ML Syringe SC ×2 (10:05→21:31)
[2020-04-23] MEDS: Pantoprazole Sodium 40 MG Tablet PO (10:06)
[2020-04-23] MEDS: Clopidogrel Bisulfate 75 MG Tablet PO (10:06)
[2020-04-23] MEDS: Aspirin 81 MG TAB.CHEW PO (10:06)
[2020-04-23] MEDS: Lisinopril 2.5 MG Tablet PO ×2 (10:11→21:31)
[2020-04-23 10:26] LABS: Bedside Glucose 180 mg/dL (70-110)
[2020-04-23 12:56] LABS: Bedside Glucose 327 mg/dL (70-110)
--- NOTE | 2020-04-23 13:20 | CASEMGMT ---
Addendum entered by Maricel Noland 04/23/20 13:50: Call back from Dr. Carson's office and they state they have no sooner appt's for pt at this time and that pt is already on the cancellation list. SStaten HERMINIA STANFORD Original Note: HERMINIA STANFORD assessment: Phone interview with patient d/t being in droplet precautions for initial transition planning/care coordination assessment. HERMINIA STANFORD introduced self and role at [facility], pt voices understanding and consents to assessment at this time. Pt speaks in full sentences in no distress at this time. Pt is A/Ox4 at this time and answers all questions appropriately at this time. Pt is currently on 2liters nc at this time. Care providers, pharmacy, and demographics verified at this time. Presentation: Pt c/o chest pain/SOB, [place] 1.5months ago Admitting dx: Acute on Chronic CHF, NSTEMI, Hyperglycemia PCP: David Specialists: Praveen/Arti SILVER LAP MACHINE TENDER, cardio; , endocrinology(pt has not seen yet but is scheduled for 06/06/2020)-message left with endo office to see if there is a sooner appt. Preferred Pharmacy: [facility] [place] mail order Insurance: momondoR Prescription Benefit: [employer] Living Will/HPOA: Pt states has LW/HPOA and is aware that they are on file at [facility] at this time. Pt's cousin, Mariam Bai, is HPOA. LNOK: Mariam Bai, cousin/HPOA Living Arrangements: Pt states lives with cousin, Mariam Bai, in duplex with 13 steps into home and states no concerns at home at this time. Pt states is independent with ADL's. Pt states that they still have bed bugs in the home but states 'we are working on it.' [place], forest nursery supervisor, and Lula HOPE updated, voice understanding. Transportation: Pt states drives self and states no transportation concerns at this time. DME/HHC: Pt states has the following DME: w/c, walker, rollator, hand held shower, and shower chair. Pt states no need for any further DME at this time. Pt states has been checking glucose 3-4 times/day and states no concerns with using insulin kwikpens at this time. Pt states no hx of HHC and still declines for anyone to come into home at this time, 'due to the bugs' per pt. Pt states has been to TCU in the past. Pt states no concerns with going home at time of discharge. Pt states is retired. Pt states smokes about a pack/day of cigarettes and does not drink ETOH. Pt states no further concerns/needs at this time. CM to follow for home oxygen, PT/OT evals, and any further discharge planning/needs. Advised pt to ask for CM if any further questions/concerns/needs arise, voices understanding. Pt Goal: Home Plan: Home SStkelly HOPE CM
[2020-04-23 15:05] LABS: Bedside Glucose 244 mg/dL (70-110)
--- NOTE | 2020-04-23 16:44 | CON.PCM_ITS ---
Problem List (1) Sepsis Status: Acute Reason for Consult: bacteremia Consulted by: Dr. Avila History of Present Illness: The patient is a 69 year old M with h/o CAD, PVD, T2DM, and Copd, presented yesterday with several days of cough with yellow/green phlegm, dyspnea, substernal chest pressure. Chest pain and SOB similar to prior CA. No recent abx. Had MRSA abscess about 20+ years ago. No new rash, scratches, n/v/d, joint pain/back pain. Came to ED, trop elevated, seen by cardiology, echo done, single Bcx with GPC, started on vanc/zosyn. Feeling a little better today. Full ROS Performed and neg except as noted above. - Medical History Past Medical History (Chronic Problems): Chronic Problems (Last Updated 04/22/20 @ 20:[address] Juan Claros MD) Acute exacerbation of CHF (congestive heart failure) (Chronic) Type 2 diabetes mellitus (Chronic) Lumbar spinal stenosis (Chronic) Atherosclerosis of coronary artery without angina pectoris (Chronic) Non-STEMI (non-ST elevated myocardial infarction) (Chronic 02/25/20) Ischemic cardiomyopathy (Chronic) Nonrheumatic aortic (valve) stenosis (Chronic) Secondary pulmonary arterial hypertension (Chronic) Essential (primary) hypertension (Chronic) Peripheral vascular disease (Chronic) Hyperlipidemia (Chronic) Nicotine dependence (Chronic) COPD (chronic obstructive pulmonary disease) (Chronic) Obstructive sleep apnea (Chronic) Allergies/Adverse Reactions: Allergies No Known Allergies Allergy (Verified 03/19/20 16:25) Home Medications: Ambulatory Orders Medication Instructions Recorded Zolpidem Tartrate [Ambien] 10 mg PO QHS 11/06/15 Multivitamin [Daily Multiple 1 ea PO DAILY 07/17/19 Vitamin] Baclofen 10 mg PO TID 03/11/20 Roflumilast [Daliresp] 500 mcg PO DAILY 03/11/20 Insulin Glargine [Lantus SoloStar 25 units SUBCUT BID #1 pen 03/13/20 Pen] clopidogrel 75 mg tablet 75 mg PO DAILY #90 tab 03/19/20 furosemide 40 mg tablet 40 mg PO BID@1000,1800 #180 tab 03/19/20 rosuvastatin 40 mg tablet 40 mg PO QHS #90 tab 03/19/20 Aspirin [Aspirin, Baby] 81 mg PO DAILY@0800 04/22/20 Carvedilol 6.25 mg PO BID 04/22/20 Enoxaparin Sodium [Lovenox] 100 mg SQ Q12H 04/22/20 Insulin Lispro [Humalog KwikPen] 15 unit SUBCUT TIDAC 04/22/20 Omeprazole 40 mg PO DAILY 04/22/20 Potassium Chloride [Klor-Con M20] 20 meq PO BID 04/22/20 Warfarin [Coumadin] 2.5 mg PO DAILY 04/22/20 - Social History SMOKING STATUS:: Former smoker Vital Signs Temp Pulse Resp BP Pulse Ox 99.2 F H 91 18 101/58 L 96 04/23/20 12:00 04/23/20 13:30 04/23/20 13:30 04/23/20 13:00 04/23/20 13:00 Oxygen Flow Rate (L/min) 2 Oxygen Delivery Method Nasal Cannula Weight: 99.7 kg Body Mass Index (BMI) 30.7 Finger Stick Blood Glucose 73 Microbiology Past 72 Hours 04/22/20 18:30 Blood Culture - Preliminary Blood Culture (Wb) - Anticubital Left 04/23/20 09:50 Respiratory Panel (PCR) - Final Mucosa - Nose 04/23/20 10:25 Streptococcus pneumoniae Antigen (M - Final Urine Catheter - Abreu 04/23/20 08:01 Legionella Antigen - Final Urine Catheter - Abreu Laboratory Tests Past 24 Hrs 04/22/20 04/22/20 04/22/20 18:05 18:05 18:05 WBC 15.3 H RBC 4.38 L Hgb 12.3 L Hct 40.0 MCV 91.3 MCH 28.1 MCHC 30.8 L RDW Std Deviation 54.1 H RDW Coeff of Estrada 15.9 H Plt Count 295 MPV 10.9 Immature Gran % (Auto) 0.300 Neut % (Auto) 63.8 Lymph % (Auto) 26.6 [place] % (Auto) 8.2 Eos % (Auto) 0.6 Baso % (Auto) 0.5 Absolute Neuts (auto) 9.8 H Absolute Lymphs (auto) 4.07 Nucleated RBC % 0 PT 20.4 H INR 1.8 Specimen Type Sample Site pH Bicarbonate Actual Total CO2 Base Excess O2 Saturation O2 % ABG pCO2 ABG pO2 Caesar Test Respiration Rate O2 Delivery Device EPAP IPAP Blood Gas Notified Whom Blood Gas Notified Time Sodium 136 Potassium 4.4 Chloride 104 Carbon Dioxide 24.0 Anion Gap 8 BUN 15 Creatinine 1.47 H Estim Creat Clear Calc 51.94 Est GFR (MDRD) Af Amer 61 Est GFR (MDRD) Non-Af 51 L BUN/Creatinine Ratio 10.2 Glucose 473 H* Hemoglobin A1c Lactic Acid Calcium 9.0 Magnesium 2.0 Troponin I 1.570 H* B-Natriuretic Peptide Procalcitonin COVID-19 ([facility]AR) 04/22/20 04/22/20 04/22/20 18:05 18:22 18:30 WBC RBC Hgb Hct MCV MCH MCHC RDW Std Deviation RDW Coeff of Estrada Plt Count MPV Immature Gran % (Auto) Neut % (Auto) Lymph % (Auto) [place] % (Auto) Eos % (Auto) Baso % (Auto) Absolute Neuts (auto) Absolute Lymphs (auto) Nucleated RBC % PT INR Specimen Type Sample Site pH Bicarbonate Actual Total CO2 Base Excess O2 Saturation O2 % ABG pCO2 ABG pO2 Caesar Test Respiration Rate O2 Delivery Device EPAP IPAP Blood Gas Notified Whom Blood Gas Notified Time Sodium Potassium Chloride Carbon Dioxide Anion Gap BUN Creatinine Estim Creat Clear Calc Est GFR (MDRD) Af Amer Est GFR (MDRD) Non-Af BUN/Creatinine Ratio Glucose Hemoglobin A1c Lactic Acid 4.5 H* Calcium Magnesium Troponin I B-Natriuretic Peptide 895.2 H Procalcitonin COVID-19 ([facility]AR) Negative 04/22/20 04/22/20 04/22/20 19:41 21:55 21:55 WBC RBC Hgb Hct MCV MCH MCHC RDW Std Deviation RDW Coeff of Estrada Plt Count MPV Immature Gran % (Auto) Neut % (Auto) Lymph % (Auto) [place] % (Auto) Eos % (Auto) Baso % (Auto) Absolute Neuts (auto) Absolute Lymphs (auto) Nucleated RBC % PT INR Specimen Type ART Sample Site R RADIAL pH 7.37 Bicarbonate Actual 23.0 Total CO2 24 Base Excess -2 O2 Saturation 96 O2 % 80 ABG pCO2 39.5 ABG pO2 87 Caesar Test POS Respiration Rate 12 O2 Delivery Device Bi Pap EPAP 14 IPAP 20 Blood Gas Notified Whom ED MD Blood Gas Notified Time 1940 Sodium Potassium Chloride Carbon Dioxide Anion Gap BUN Creatinine Estim Creat Clear Calc Est GFR (MDRD) Af Amer Est GFR (MDRD) Non-Af BUN/Creatinine Ratio Glucose Hemoglobin A1c 9.7 H Lactic Acid Calcium Magnesium Troponin I 21.100 H* B-Natriuretic Peptide Procalcitonin COVID-19 (SCAR) 04/22/20 04/23/20 04/23/20 21:55 01:05 05:00 WBC 8.9 RBC 3.78 L Hgb 10.6 L Hct 33.8 L MCV 89.4 MCH 28.0 MCHC 31.4 L RDW Std Deviation 52.7 H RDW Coeff of Estrada 15.9 H Plt Count 208 MPV 10.6 Immature Gran % (Auto) 0.300 Neut % (Auto) 61.1 Lymph % (Auto) 27.3 [place] % (Auto) 10.4 H Eos % (Auto) 0.6 Baso % (Auto) 0.3 Absolute Neuts (auto) 5.4 Absolute Lymphs (auto) 2.42 Nucleated RBC % 0 PT INR Specimen Type Sample Site pH Bicarbonate Actual Total CO2 Base Excess O2 Saturation O2 % ABG pCO2 ABG pO2 Caesar Test Respiration Rate O2 Delivery Device EPAP IPAP Blood Gas Notified Whom Blood Gas Notified Time Sodium Potassium Chloride Carbon Dioxide Anion Gap BUN Creatinine Estim Creat Clear Calc Est GFR (MDRD) Af Amer Est GFR (MDRD) Non-Af BUN/Creatinine Ratio Glucose Hemoglobin A1c Lactic Acid 1.6 Calcium Magnesium Troponin I 28.600 H* B-Natriuretic Peptide Procalcitonin COVID-19 (SCAR) 04/23/20 04/23/20 04/23/20 05:00 05:00 12:50 WBC RBC Hgb Hct MCV MCH MCHC RDW Std Deviation RDW Coeff of Estrada Plt Count MPV Immature Gran % (Auto) Neut % (Auto) Lymph % (Auto) [place] % (Auto) Eos % (Auto) Baso % (Auto) Absolute Neuts (auto) Absolute Lymphs (auto) Nucleated RBC % PT 20.2 H INR 1.8 Specimen Type Sample Site pH Bicarbonate Actual Total CO2 Base Excess O2 Saturation O2 % ABG pCO2 ABG pO2 Caesar Test Respiration Rate O2 Delivery Device EPAP IPAP Blood Gas Notified Whom Blood Gas Notified Time Sodium 138 Potassium 3.6 Chloride 106 Carbon Dioxide 29.0 Anion Gap 3 L BUN 18 Creatinine 1.09 Estim Creat Clear Calc 70.04 Est GFR (MDRD) Af Amer 87 Est GFR (MDRD) Non-Af 72 BUN/Creatinine Ratio 16.5 Glucose 292 H Hemoglobin A1c Lactic Acid Calcium 8.4 L Magnesium Troponin I 16.100 H* B-Natriuretic Peptide Procalcitonin COVID-19 (SCAR) 04/23/20 16:20 WBC RBC Hgb Hct MCV MCH MCHC RDW Std Deviation RDW Coeff of Estrada Plt Count MPV Immature Gran % (Auto) Neut % (Auto) Lymph % (Auto) [place] % (Auto) Eos % (Auto) Baso % (Auto) Absolute Neuts (auto) Absolute Lymphs (auto) Nucleated RBC % PT INR Specimen Type Sample Site pH Bicarbonate Actual Total CO2 Base Excess O2 Saturation O2 % ABG pCO2 ABG pO2 Caesar Test Respiration Rate O2 Delivery Device EPAP IPAP Blood Gas Notified Whom Blood Gas Notified Time Sodium Potassium Chloride Carbon Dioxide Anion Gap BUN Creatinine Estim Creat Clear Calc Est GFR (MDRD) Af Amer Est GFR (MDRD) Non-Af BUN/Creatinine Ratio Glucose Hemoglobin A1c Lactic Acid Calcium Magnesium Troponin I B-Natriuretic Peptide Procalcitonin Pending COVID-19 ([facility]) - Other Studies Radiology: [] reviewed Other Studies: [] Route of nutrition/ use of supplements: [] Nutritional Intake: [] IV Site: [] Abreu Catheter: [] - Physical Exam General: Alert, Oriented x3, Cooperative, No apparent distress HEENT: Atraumatic, PERRLA, EOMI Neck: Supple, No Nodes Lungs: Rhonchi Cardiovascular: Murmur, Tachycardic Abdomen: Soft, Non Tender, Non-Distended Extremities: Edema Skin: No rashes, - - no splinter hemorrhages on hands or feet IV Site: Peripheral, without redness Musculoskeletal: No Tenderness to Palpation of Joints or Extremities - no spine tenderness, no inflammation of other joints Neurological: Cranial nerves II-XII grossly intact - Assessment/Plan Antibiotics: [] Assessment/Plan: [] Active and Suspected Problems (Last Updated 04/22/20 @ 20:[address] Juan Claros MD) Respiratory distress (Acute) Elevated troponin (Acute) Acute hypoxemic respiratory failure (Acute) NSTEMI (non-ST elevated myocardial infarction) (Acute) CAD (coronary artery disease) (Acute) Acute on chronic combined systolic and diastolic CHF (congestive heart failure) (Acute) Hyperglycemia (Acute) Lactic acidosis (Acute) severe sepsis with NSTEMI, hypoxia, ZOFIA, and lactic acidosis - no fever here, wbc and lactate improving. Tachycardia better. Cr improving. TTE showed no veg. Covid neg. Single Bcx (+) GPC in clusters so far. Will get repeat bcx now. Cont vanc/zosyn. No peripheral signs of endocarditis. Would get sputum cx if he is able to produce a sample. will follow, thank you
[2020-04-23 17:24] LABS: Procalcitonin 0.21 ng/mL (0.00-0.09)
--- NOTE | 2020-04-23 17:29 | PCM.RX.CS ---
Consult Pharmacy has been consulted to manage selected antiobiotic: Vancomycin Type of Consult: New start Suspected Infection: Bacteremia Labs: Sodium 138 mmol/L (136-145) 04/23/20 05:00 Potassium 3.6 mmol/L (3.5-5.1) 04/23/20 05:00 Chloride 106 mmol/L (98-107) 04/23/20 05:00 Carbon Dioxide 29.0 mmol/L (21.0-32.0) 04/23/20 05:00 Anion Gap 3 (5-15) L 04/23/20 05:00 BUN 18 mg/dL (7-18) 04/23/20 05:00 Creatinine 1.09 mg/dL (0.70-1.30) 04/23/20 05:00 Est GFR (MDRD) Af Amer 87 mL/min (>60) 04/23/20 05:00 Est GFR (MDRD) Non-Af 72 mL/min (>60) 04/23/20 05:00 BUN/Creatinine Ratio 16.5 RATIO (-20) 04/23/20 05:00 Glucose 292 mg/dL (74-106) H 04/23/20 05:00 Microbiology: Microbiology 04/22/20 18:30 Blood Culture (Wb) - Anticubital Left Blood Culture - Preliminary 04/23/20 09:50 Mucosa - Nose Respiratory Panel (PCR) - Final 04/23/20 10:25 Urine Catheter - Abreu Streptococcus pneumoniae Antigen (M - Final 04/23/20 08:01 Urine Catheter - Abreu Legionella Antigen - Final Goal Trough: 15-20 mcg/mL Pharmacy Plan for Drug Dosing: NEW START IV VANCOMYCIN Consulting Physician: Dr. Avila Indication: bacteremia Goal Trough: 15-20 SrCr: 1.09 CrCl: 70 ml/min Comments: 1500mg IV x1 entered and administered 04/23/20 @1705 Vancomcyin Dose: 1500mg IV Q12hrs to start 12 hours from initial dose 04/24 @0500 Pending Level: 04/25/20 @0430, prior to 4th total dose per protocol Pharmacy Service will continue to monitor and adjust dosing as required.
[2020-04-23 18:11] LABS: Bedside Glucose 234 mg/dL (70-110)
[2020-04-23 21:41] LABS: Bedside Glucose 244 mg/dL (70-110)
[2020-04-24] VITALS (22 sets, daily range): BP systolic 94–122; BP diastolic 52–72; PULSE 81–96; RESP 12–32; TEMP 36.4–37.4; O2SAT 92–97
[2020-04-24] MEDS: Ipratropium/Albuterol Sulfate 3 ML AMPUL.NEB INHALATION ×3 (00:55→19:53)
[2020-04-24 05:14] LABS: Absolute Lymphocyte Count 1.83 X10^3/uL (0.83-4.51); Basophil# 0.03 X10^3/uL; Basophil% 0.5 % (0-1); Eosinophils% 1.5 % (0-5); Hematocrit 31.7 % (40-54); Hemoglobin 10.1 g/dL (13.0-16.5); Lymphocyte # 1.83 X10^3/ul (4.0); Lymphocyte % 27.9 % (19-41); Mean Corp Hgb Conc 31.9 g/dL (32-36); Mean Corpuscular Hgb 28.1 pg (27.0-32.0); Mean Corpuscular Volume 88.3 fL (80-94); Mean Platelet Vol. 10.8 fl (6.2-12.0); Monocyte# 0.58 X10^3/uL; Monocyte% 8.8 % (0-10); NRBC Flagged by Analyzer 0 % (0-5); Neutrophil # 4.01 X10^3/uL (2.7-7.7); Platelet Count 196 K/mm3 (150-450); RBC Distribution Width CV 16.3 % (11.6-14.6); RBC Distribution Width SD 52.9 fl (35.1-43.9); Red Blood Count 3.59 M/mm3 (4.6-6.2); White Blood Count 6.6 K/mm3 (4.4-11.0)
[2020-04-24 05:24] LABS: International Normalized Ratio 1.5; Prothrombin Time (Protime)PT. 17.5 SECONDS (11.7-14.9)
[2020-04-24 05:34] LABS: Anion Gap 6 (5-15); BUN 27 mg/dL (7-18); BUN/Creat Ratio 25.2 RATIO (10-20); Calcium,Total 8.4 mg/dL (8.5-10.1); Chloride 105 mmol/L (98-107); Creatinine, Serum 1.07 mg/dL (0.70-1.30); EST Glomerular Filtration Rate 73 mL/min (>60); Est Glom Filt Rate - Afr Amer 89 mL/min (>60); Estimated Creatinine Clearance 71.35 ml/min; Glucose 232 mg/dL (74-106); Potassium 3.4 mmol/L (3.5-5.1); Sodium Level 139 mmol/L (136-145)
[2020-04-24] MEDS: Furosemide 40 MG/4 ML Vial IV ×2 (06:51→16:44)
--- NOTE | 2020-04-24 07:29 | PN.CARD_ITS ---
Subjectve: Patient seen and evaluated. Objective: Vital Signs Temp Pulse Resp BP Pulse Ox 98.7 F 91 18 99/66 92 04/24/20 07:00 04/24/20 07:07 04/24/20 07:07 04/24/20 07:00 04/24/20 07:07 Oxygen Flow Rate (L/min) 2 Oxygen Delivery Method Room Air Weight: 222 lb 14.197 oz Body Mass Index (BMI) 30.7 Finger Stick Blood Glucose 73 Intake and Output for Last 24 Hours 04/22/20 04/23/20 04/24/20 23:59 23:59 23:59 Intake Total 8.60 / 8.60 2040.75 / 2040.75 50 / 50 Output Total 200 / 400 2500 / 2750 600 / 600 Balance -191.40 / -391.40 -459.25 / -709.25 -550 / -550 General: Awake, Alert, Oriented x 3 HEENT: PERRL, EOMI, Sclera Non Icteric Neck: Supple, Good ROM, No Lymph Node Enlargement Lungs: Clear to auscultation Cardiovascular: Regular Rhythm, Normal S1, Normal S2, No Murmurs, No Rubs, No Gallops Vascular: No Carotid Bruits, Normal Femoral Pulses, Normal Radial Pulses, Normal Dorsalis Pedal Pulse, Normal Posterior Tibial Pulses Abdomen: Bowel Sounds Present, Soft, Non Tender, No HSM, No Organomegaly Extremities: No Cyanosis, No Clubbing, No edema Musculoskeletal: No Erythema Skin: No Rashes Neurological: No Focal Motor or Sensory Deficit 04/23/20 12:50: Troponin I 16.100 H* 04/24/20 05:00: PT 17.5 H, INR 1.5 04/24/20 05:00: Sodium 139, Potassium 3.4 L, Chloride 105, Carbon Dioxide 28.0, Anion Gap 6, BUN 27 H, Creatinine 1.07, Est GFR (MDRD) Af Amer 89, Est GFR (MDRD) Non-Af 73, BUN/Creatinine Ratio 25.2 H, Glucose 232 H, Calcium 8.4 L, Magnesium 2.0 04/24/20 05:00: WBC 6.6, RBC 3.59 L, Hgb 10.1 L, Hct 31.7 L, MCV 88.3, MCH 28.1, MCHC 31.9 L, Plt Count 196, MPV 10.8, Immature Gran % (Auto) 0.300, Neut % (Auto) 61.0, Lymph % (Auto) 27.9, [place] % (Auto) 8.8, Eos % (Auto) 1.5, Baso % (Auto) 0.5, Absolute Neuts (auto) 4.0, Nucleated RBC % 0 Rhythm: EKG: ECHO: Stress Test: Cardiac Cath: PCI: CT Surgery: Holter monitor: EPS: PPM: CXR: Chest CT Scan: Medical Necessity - Tobacco Use Smoking Status: Current every day smoker Tobacco Use: Cigarettes Assessment/Plan 1. Non-ST segment elevation KS The patient has findings compatible with an acute non-ST segment elevation KS. It is unclear at this time whether this is a type I event brought out by his underlying CAD versus a type II event brought out by his acute on chronic systolic/diastolic mediated CHF and diminished LV systolic function. Echocardiogram read yesterday demonstrated segmental wall motion abnormalities with an estimated ejection fraction of 35%. Based on the above as well as with the elevation in the cardiac enzymes the patient would require a cardiac catheterization. * Patient however at this time is actively septic with gram-positive cocci and receiving antibiotics. * As he is pain-free I would recommend that we deferred a cardiac catheterization for today at least and reevaluate him tomorrow. He will be seen by my colleague Dr. Feliciano Lewis and a decision made. 2. CAD He does have a history of CAD as previously described. However, with respect to repeat cardiac catheterization, he may need to have improvement of his underlying CHF symptoms first and allow his INR to decrease somewhat prior to such a procedure. 3. Ischemic mediated cardiomyopathy The patient does have an underlying ischemic mediated cardiomyopathy. Again this can be reassessed with an echocardiogram with respect to his overall LV wall motion systolic function. 4. Acute on chronic systolic/diastolic CHF At the present time the patient does have recurrent symptoms. He will need to be monitored. He will need to continue medical therapy with adjustment as needed to improve his CHF symptoms. He will continue noninvasive evaluation and possibly be in need of repeat invasive evaluation. 5. Aortic valve stenosis He has been diagnosed with aortic valve stenosis in the past. It is possible this may be a contributing factor with his overall cardiovascular condition. His echocardiogram did not demonstrate any significant aortic stenosis. 6. Hyperlipidemia He should continue lipid-lowering therapy. 7. Hypertension His blood pressure can be monitored. His medications can be adjusted as needed. 8. Diabetes mellitus He will continue evaluation care per internal medicine. 9. COPD He does have a history of underlying COPD. He will need to follow with his primary care physician and/or pulmonology for that. 10. Obstructive sleep apnea He has a history of obstructive sleep apnea. He should continue with therapy per his primary care physician and/or pulmonology. 11. Peripheral vascular disease He has a history of DVT. He has been on 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 therapy or bridging 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 therapy. This will have to be adjusted as he may need repeat invasive cardiovascular evaluation. 12. Nicotine abuse He has been counseled on the need to discontinue tobacco smoking. He is receiving cessation therapy information from respiratory therapy. At this time the patient appears to be stable to be transferred to the progressive care unit. He will be seen on Tuesday a.m. and the decision as to further management made.
[2020-04-24] MEDS: Insulin Lispro 100 UNIT/ML INSULN.PEN 15 UNIT SC ×3 (08:29→16:42)
[2020-04-24] MEDS: Lisinopril 2.5 MG Tablet PO ×2 (08:30→21:37)
[2020-04-24] MEDS: Carvedilol 6.25 MG Tablet PO ×2 (08:30→21:36)
[2020-04-24] MEDS: Pantoprazole Sodium 40 MG Tablet PO (08:30)
[2020-04-24] MEDS: Aspirin 81 MG TAB.CHEW PO (08:31)
[2020-04-24] MEDS: Clopidogrel Bisulfate 75 MG Tablet PO (08:31)
[2020-04-24] MEDS: Enoxaparin 100 MG/ML Syringe SC ×2 (08:31→21:37)
[2020-04-24 08:36] LABS: Bedside Glucose 280 mg/dL (70-110)
--- NOTE | 2020-04-24 08:58 | PCM.PN.HOSP ---
Patient Problems: Active and Suspected Problems (Last Updated 04/22/20 @ 20:[address] Juan Claros MD) Respiratory distress (Acute) Elevated troponin (Acute) Acute hypoxemic respiratory failure (Acute) NSTEMI (non-ST elevated myocardial infarction) (Acute) CAD (coronary artery disease) (Acute) Sepsis (Acute) Acute on chronic combined systolic and diastolic CHF (congestive heart failure) (Acute) Hyperglycemia (Acute) Lactic acidosis (Acute) Objective: Patient heart rate and blood pressure are controlled. Currently on room air; respiratory status is much better, RR 18/min patient is transferred to PCU Physical exam General: Alert, Oriented x3, Cooperative HEENT: Atraumatic, PERRLA, EOMI, Normocephalic Oral: No Gingival or Mucosal Lesions/ Ulcerations Neck: Supple, No JVD, Negative Carotid Bruits Lungs: Air entry diminished in bilateral lung bases. No crepitation/rhonchi. No tachypnea, no hypoxia Cardiovascular: Regular rate, Regular Rhythm, Normal S1, Normal S2, ejection systolic murmur present over aortic area, pansystolic murmur over left lower sternal border and cardiac apex. Surgical scar over left calf and thigh. Abdomen: Bowel Sounds Present, Soft, Non Tender, Non-Distended : No renal angle tenderness. No suprapubic tenderness. Extremities: No edema, Capillary Refill Less than 3 Seconds Skin: No rashes, No breakdown Musculoskeletal: No Tenderness to Palpation of Joints or Extremities Neurological: Cranial nerves II-XII grossly intact, Deep Tendon Reflexes 2+/4 and Symmetrical, Neuro grossly intact Psych/Mental Status: Normal Affect, Appropriate. Vitals/I&O's: Vital Signs Temp Pulse Resp BP Pulse Ox 98.7 F 91 18 99/66 92 04/24/20 07:00 04/24/20 07:07 04/24/20 07:07 04/24/20 07:00 04/24/20 07:07 Oxygen Flow Rate (L/min) 2 Oxygen Delivery Method Room Air Weight: 222 lb 14.197 oz Body Mass Index (BMI) 30.7 Finger Stick Blood Glucose 73 Intake and Output for Last 24 Hours 04/22/20 04/23/20 04/24/20 23:59 23:59 23:59 Intake Total 8.60 / 8.60 2040.75 / 2040.75 580 / 580 Output Total 200 / 400 2500 / 2750 600 / 600 Balance -191.40 / -391.40 -459.25 / -709.25 -20 / -20 Microbiology Past 72 Hours 04/22/20 18:30 Blood Culture (Wb) - Anticubital Left Bacteria Detection (PCR) - Final Staphylococcus epidermidis 04/22/20 18:30 Blood Culture (Wb) - Anticubital Left Blood Culture - Preliminary Coag Negative Staph 04/23/20 09:50 Mucosa - Nose Respiratory Panel (PCR) - Final 04/23/20 10:25 Urine Catheter - Abreu Streptococcus pneumoniae Antigen (M - Final 04/23/20 08:01 Urine Catheter - Abreu Legionella Antigen - Final Laboratory Results 04/23/20 10:11: POC Glucose 180 H 04/23/20 12:43: POC Glucose 327 H 04/23/20 12:50: Troponin I 16.100 H* 04/23/20 14:58: POC Glucose 244 H 04/23/20 16:20: Procalcitonin 0.21 H 04/23/20 18:03: POC Glucose 234 H 04/23/20 21:29: POC Glucose 244 H 04/24/20 05:00: PT 17.5 H, INR 1.5 04/24/20 05:00: Sodium 139, Potassium 3.4 L, Chloride 105, Carbon Dioxide 28.0, Anion Gap 6, BUN 27 H, Creatinine 1.07, Estim Creat Clear Calc 71.35, Est GFR (MDRD) Af Amer 89, Est GFR (MDRD) Non-Af 73, BUN/Creatinine Ratio 25.2 H, Glucose 232 H, Calcium 8.4 L, Magnesium 2.0 04/24/20 05:00: WBC 6.6, RBC 3.59 L, Hgb 10.1 L, Hct 31.7 L, MCV 88.3, MCH 28.1, MCHC 31.9 L, RDW Std Deviation 52.9 H, RDW Coeff of Estrada 16.3 H, Plt Count 196, MPV 10.8, Immature Gran % (Auto) 0.300, Neut % (Auto) 61.0, Lymph % (Auto) 27.9, [place] % (Auto) 8.8, Eos % (Auto) 1.5, Baso % (Auto) 0.5, Absolute Neuts (auto) 4.0, Absolute Lymphs (auto) 1.83, Nucleated RBC % 0 04/24/20 08:26: POC Glucose 280 H Current Medications Acetaminophen (Tylenol) 650 mg PO Q6H PRN PRN PRN Reason: Pain Score 1-10/Temp > 100.7 F Albuterol Sulfate (Ventolin Aerosols) 2.5 mg INHALATION Q2H PRN PRN PRN Reason: SOB/Wheezing Albuterol/Ipratropium (Duoneb) 3 ml INHALATION Q6H.RT [facility] Last Admin: 04/24/20 06:45 Dose: 3 ml Documented by: Aspirin (Aspirin, Baby) 81 mg PO DAILY@0800 [facility] Last Admin: 04/24/20 08:31 Dose: 81 mg Documented by: Atorvastatin Calcium (Lipitor) 80 mg PO QHS [facility] Last Admin: 04/23/20 21:31 Dose: 80 mg Documented by: Carvedilol (Coreg) 6.25 mg PO BID [facility] Last Admin: 04/24/20 08:30 Dose: 6.25 mg Documented by: Clopidogrel Bisulfate (Plavix) 75 mg PO DAILY [facility] Last Admin: 04/24/20 08:31 Dose: 75 mg Documented by: Enoxaparin Sodium (Lovenox) 100 mg SC Q12 [facility] Last Admin: 04/24/20 08:31 Dose: 100 mg Documented by: Furosemide (Lasix) 40 mg IV Q12H [facility] Last Admin: 04/24/20 06:51 Dose: 40 mg Documented by: Nitroglycerin/Dextrose () 250 mls @ 3 mls/hr IV .[id number] STA; Protocol Stop: 04/26/20 05:28 Last Titration: 04/23/20 18:00 Dose: 0 mcg/min, 0 mls/hr Documented by: Sodium Chloride () 250 mls @ 15 mls/hr IV .[id number] PRN PRN Reason: Saline Flush Last Infusion: 04/23/20 16:29 Dose: 0 mls/hr Documented by: Sodium Chloride () 250 mls @ 15 mls/hr IV .[id number] PRN PRN Reason: Additional IVPB Infusion Piperacillin Sod/Tazobactam (Sod 3.375 gm/ Sodium Chloride) 50 mls @ 12.5 mls/hr IV Q8 [facility] Last Admin: 04/24/20 08:28 Dose: 12.5 mls/hr Documented by: Insulin Glargine (Lantus (Bkc)) 25 units SC BID [facility] Last Admin: 04/24/20 08:31 Dose: 25 u Documented by: Insulin Human Lispro (Humalog Kwikpen (Bkc)) 15 unit SC TIDAC [facility] Last Admin: 04/24/20 08:29 Dose: 15 u Documented by: Lisinopril (Zestril) 2.5 mg PO BID [facility] Last Admin: 04/24/20 08:30 Dose: 2.5 mg Documented by: Ondansetron HCl (Zofran) 4 mg IV Q8H PRN PRN PRN Reason: NAUSEA/VOMITING Pantoprazole Sodium (Protonix) 40 mg PO DAILY [facility] Last Admin: 04/24/20 08:30 Dose: 40 mg Documented by: Potassium Chloride (K-Dur) [facility] Senna/Docusate Sodium (Senokot-S, Donna-Colace) 2 tablet PO BID PRN PRN PRN Reason: Constipation Sodium Chloride () 10 - 40 ml IV UD PRN PRN Reason: SALINE FLUSH Last Admin: 04/23/20 06:02 Dose: 30 ml Documented by: Zolpidem Tartrate (Ambien (Generic)) 5 mg PO QHS [facility] Last Admin: 04/23/20 21:31 Dose: 5 mg Documented by: STROKE Vital Signs/Narrative: Vital Signs Temp Pulse Resp BP Pulse Ox 04/24/20 07:07 91 18 92 04/24/20 07:00 98.7 F 84 28 H 99/66 96 04/24/20 06:00 99.0 F 84 26 H 103/69 96 04/24/20 05:00 99.2 F H 85 16 103/70 97 Medical Necessity - Tobacco Use Smoking Status: Current every day smoker Tobacco Use: Cigarettes Assessment/Plan All Active Problems (Last Updated 04/22/20 @ 20:[address] Juan Claros MD) Respiratory distress (Acute) Elevated troponin (Acute) Acute hypoxemic respiratory failure (Acute) NSTEMI (non-ST elevated myocardial infarction) (Acute) CAD (coronary artery disease) (Acute) Sepsis (Acute) Acute on chronic combined systolic and diastolic CHF (congestive heart failure) (Acute) Hyperglycemia (Acute) Lactic acidosis (Acute) This is a 69 years old male patient presented to the emergency room because of shortness of breath or chest pain, found to have acute on chronic combined diastolic and systolic CHF, non-ST elevation IN, lactic acidosis, acute kidney injury and hyperglycemia without evidence of DKA. #1 acute on chronic combined diastolic and systolic CHF: Patient is admitted in ICU. EKG shows sinus tachycardia 158/min with short routine worsened and ST depression in 1 and aVL suggestive of mild lateral ischemia although heart rotation ST-T changes from previous EKG of February 25, 2020 which showed sinus tachycardia at 145 beats minute. Patient was started on IV nitroglycerin drip which is discontinued now. Patient blood pressure and heart rate improved. 04/24: On Lasix, heart failure core measures. Mild hypokalemia, potassium replaced. Patient noncompliance with fluid intake and salt at home. Plan for possible heart cath tomorrow a.m. #2 non-ST elevation IN due to acute on chronic systolic and diastolic heart failure: Patient predominant symptom was shortness of breath, VALADEZ progressed to dyspnea at rest. Troponin maxed at 28.6. BNP 895. Chest x-ray individually reviewed and shows interstitial edema. Patient had cardiac catheterization on Nov, 2019 that revealed EF of 35%, mild irregularities of the left main artery with less than 30% stenosis, diffusely diseased left circumflex up to 40 % stenosis, diffusely diseased LAD up to 50%, proximal RCA is occluded. At that time, no interventions were performed and medical treatment continued. 2D echo on February,, revealed ejection fraction 45%, stage II diastolic dysfunction, mild to moderate left ear, mild MR and pulmonary artery pressure is 45 consistent with mild pulmonary hypertension. continue aspirin, Coreg, Plavix, lisinopril low-dose continue Coumadin and therapeutic bridging Lovenox. 2D echo on 04/23 interpretation Summary Moderate segmental systolic dysfunction (see wall motion). The estimated ejection fraction is 35 %. The left atrium is mildly enlarged. There is mild mitral annular calcification. Mild diffuse mitral valve thickening. Mild (1+) mitral valve insufficiency. Mild tricuspid valve insufficiency. Moderate aortic stenosis. Trivial aortic valve insufficiency. Right ventricular systolic pressure estimated to be 37 mmHg. Transmitral diastolic flow velocities suggest diastolic dysfunction (pseudonormal pattern). #3 lactic acidosis: This is likely due to tissue hypoxemia. Patient denies fever at home and afebrile in the hospital. Leukocytosis resolved. Patient had nonspecific cough and sputum that may be from interstitial edema. Sepsis work-up ordered. No indication for IV antibiotics. #4 acute kidney injury most likely secondary to acute on chronic heart failure: Resolved. Admitting BUN/creatinine 15/1.47, most recent 18/1.09. Monitor kidney function and electrolytes. #5 hyperglycemia: Without evidence of DKA. Blood glucose is 473. Serum bicarb and anion gap are normal. ABG revealed normal pH, 7.3 on 80% FiO2 20/14. BiPAP during naps and rescue. Plan: Accu-Cheks every 4 hours, insulin sliding scale, continue Lantus twice daily as well as pre-meal Humalog. Hemoglobin A1c was 13.3% on June,. A1c recent 9.7 on 04/22. #6 CAD: Without prior history of cardiac interventions. #7 type 2 diabetes mellitus: Uncontrolled. Plan as above, will check hemoglobin A1c again. #8 chronic systolic CHF/ischemic cardiomyopathy: He is in acute on chronic CHF as mentioned above. Plan as above. #9 COPD: Currently, on BiPAP. ABG reviewed as above. Plan for bronchodilators, continue BiPAP. #10 hypertension: Initially, blood pressure was elevated but improved with IV nitroglycerin drip. Plan to continue Coreg, IV Lasix. #11 peripheral vascular disease: Stable, continue aspirin and statins as well as Plavix. 8 seems patient has left femoropopliteal bypass surgery based on the site of surgical scar although no surgical details available. #12 CODE STATUS: When I asked the patient about the CODE STATUS, he said he is not sure at this time. I requested the patient to think about his CODE STATUS and what we should do in case of cardiorespiratory arrest. #13 DVT prophylaxis: INR is 1.8, at this activity, continue Coumadin, continue Lovenox for bridging. Total time of the visit including total time spent in counseling or coordination of care, (more than 50% of the total time, spent in obtaining medical information from nurses and other ancillary care providers), discussion with senior information security consultant, review of labs and imaging is 30 minutes. Clinical Impression(s) from Imaging Studies Chest X-Ray 04/22/20 18:13 IMPRESSION: Moderate interstitial edema Inpatient E&M: 97989 Subs Hosp L2
--- NOTE | 2020-04-24 09:57 | PCM.PN.ID ---
Patient Problems: Active and Suspected Problems (Last Updated 04/22/20 @ 20:[address] Juan Claros MD) Respiratory distress (Acute) Elevated troponin (Acute) Acute hypoxemic respiratory failure (Acute) NSTEMI (non-ST elevated myocardial infarction) (Acute) CAD (coronary artery disease) (Acute) Sepsis (Acute) Acute on chronic combined systolic and diastolic CHF (congestive heart failure) (Acute) Hyperglycemia (Acute) Lactic acidosis (Acute) Subjective: Feeling better, no cough, no dyspnea, no fever, no chest pain - Physical Exam Vitals/I&O's: Vital Signs Temp Pulse Resp BP Pulse Ox 98.7 F 91 18 99/66 92 04/24/20 07:00 04/24/20 07:07 04/24/20 07:07 04/24/20 07:00 04/24/20 07:07 Oxygen Flow Rate (L/min) 2 Oxygen Delivery Method Room Air Weight: 101.1 kg Body Mass Index (BMI) 30.7 Finger Stick Blood Glucose 73 Intake and Output for Last 24 Hours 04/22/20 04/23/20 04/24/20 23:59 23:59 23:59 Intake Total 8.60 / 8.60 2040.75 / 2040.75 580 / 580 Output Total 200 / 400 2500 / 2750 600 / 600 Balance -191.40 / -391.40 -459.25 / -709.25 -20 -20 General: Alert, Cooperative, No apparent distress Lungs: Clear to auscultation, Normal air movement Cardiovascular: Tachycardic Abdomen: Soft, Non Tender, Non-Distended Skin: No rashes Microbiology Past 72 Hours 04/22/20 18:30 Blood Culture (Wb) - Anticubital Left Bacteria Detection (PCR) - Final Staphylococcus epidermidis 04/22/20 18:30 Blood Culture (Wb) - Anticubital Left Blood Culture - Preliminary Coag Negative Staph 04/23/20 09:50 Mucosa - Nose Respiratory Panel (PCR) - Final 04/23/20 10:25 Urine Catheter - Abreu Streptococcus pneumoniae Antigen (M - Final 04/23/20 08:01 Urine Catheter - Abreu Legionella Antigen - Final Laboratory Results 04/23/20 10:11: POC Glucose 180 H 04/23/20 12:43: POC Glucose 327 H 04/23/20 12:50: Troponin I 16.100 H* 04/23/20 14:58: POC Glucose 244 H 04/23/20 16:20: Procalcitonin 0.21 H 04/23/20 18:03: POC Glucose 234 H 04/23/20 21:29: POC Glucose 244 H 04/24/20 05:00: PT 17.5 H, INR 1.5 04/24/20 05:00: Sodium 139, Potassium 3.4 L, Chloride 105, Carbon Dioxide 28.0, Anion Gap 6, BUN 27 H, Creatinine 1.07, Estim Creat Clear Calc 71.35, Est GFR (MDRD) Af Amer 89, Est GFR (MDRD) Non-Af 73, BUN/Creatinine Ratio 25.2 H, Glucose 232 H, Calcium 8.4 L, Magnesium 2.0 04/24/20 05:00: WBC 6.6, RBC 3.59 L, Hgb 10.1 L, Hct 31.7 L, MCV 88.3, MCH 28.1, MCHC 31.9 L, RDW Std Deviation 52.9 H, RDW Coeff of Estrada 16.3 H, Plt Count 196, MPV 10.8, Immature Gran % (Auto) 0.300, Neut % (Auto) 61.0, Lymph % (Auto) 27.9, [place] % (Auto) 8.8, Eos % (Auto) 1.5, Baso % (Auto) 0.5, Absolute Neuts (auto) 4.0, Absolute Lymphs (auto) 1.83, Nucleated RBC % 0 04/24/20 08:26: POC Glucose 280 H Current Medications Acetaminophen (Tylenol) 650 mg PO Q6H PRN PRN PRN Reason: Pain Score 1-10/Temp > 100.7 F Albuterol Sulfate (Ventolin Aerosols) 2.5 mg INHALATION Q2H PRN PRN PRN Reason: SOB/Wheezing Albuterol/Ipratropium (Duoneb) 3 ml INHALATION Q6H.RT [facility] Last Admin: 04/24/20 06:45 Dose: 3 ml Documented by: Aspirin (Aspirin, Baby) 81 mg PO DAILY@0800 [facility] Last Admin: 04/24/20 08:31 Dose: 81 mg Documented by: Atorvastatin Calcium (Lipitor) 80 mg PO QHS [facility] Last Admin: 04/23/20 21:31 Dose: 80 mg Documented by: Carvedilol (Coreg) 6.25 mg PO BID [facility] Last Admin: 04/24/20 08:30 Dose: 6.25 mg Documented by: Clopidogrel Bisulfate (Plavix) 75 mg PO DAILY [facility] Last Admin: 04/24/20 08:31 Dose: 75 mg Documented by: Enoxaparin Sodium (Lovenox) 100 mg SC Q12 [facility] Last Admin: 04/24/20 08:31 Dose: 100 mg Documented by: Furosemide (Lasix) 40 mg IV Q12H [facility] Last Admin: 04/24/20 06:51 Dose: 40 mg Documented by: Nitroglycerin/Dextrose () 250 mls @ 3 mls/hr IV .[id number] [facility]; Protocol Stop: 04/26/20 05:28 Last Titration: 04/23/20 18:00 Dose: 0 mcg/min, 0 mls/hr Documented by: Sodium Chloride () 250 mls @ 15 mls/hr IV .[id number] PRN PRN Reason: Saline Flush Last Infusion: 04/23/20 16:29 Dose: 0 mls/hr Documented by: Sodium Chloride () 250 mls @ 15 mls/hr IV .[id number] PRN PRN Reason: Additional IVPB Infusion Piperacillin Sod/Tazobactam (Sod 3.375 gm/ Sodium Chloride) 50 mls @ 12.5 mls/hr IV Q8 [facility] Last Admin: 04/24/20 08:28 Dose: 12.5 mls/hr Documented by: Insulin Glargine (Lantus (Bkc)) 25 units SC BID [facility] Last Admin: 04/24/20 08:31 Dose: 25 u Documented by: Insulin Human Lispro (Humalog Kwikpen (Bk)) 15 unit SC TIDAC [facility] Last Admin: 04/24/20 08:29 Dose: 15 u Documented by: Lisinopril (Zestril) 2.5 mg PO BID [facility] Last Admin: 04/24/20 08:30 Dose: 2.5 mg Documented by: Ondansetron HCl (Zofran) 4 mg IV Q8H PRN PRN PRN Reason: NAUSEA/VOMITING Pantoprazole Sodium (Protonix) 40 mg PO DAILY [facility] Last Admin: 04/24/20 08:30 Dose: 40 mg Documented by: Potassium Chloride (K-Dur) 40 meq PO DAILYCM [facility] Senna/Docusate Sodium (Senokot-S, Donna-Colace) 2 tablet PO BID PRN PRN PRN Reason: Constipation Sodium Chloride () 10 - 40 ml IV UD PRN PRN Reason: SALINE FLUSH Last Admin: 04/23/20 06:02 Dose: 30 ml Documented by: Zolpidem Tartrate (Ambien (Generic)) 5 mg PO QHS [facility] Last Admin: 04/23/20 21:31 Dose: 5 mg Documented by: Medical Necessity - Tobacco Use Smoking Status: Current every day smoker Tobacco Use: Cigarettes Route of nutrition/ use of supplements: [] Nutritional Intake: [] IV Site: [] Abreu Catheter: [] - Assessment/Plan Antibiotics: [] Assessment/Plan: [] Active and Suspected Problems (Last Updated 04/22/20 @ 20:[address] Juan Claros MD) Respiratory distress (Acute) Elevated troponin (Acute) Acute hypoxemic respiratory failure (Acute) NSTEMI (non-ST elevated myocardial infarction) (Acute) CAD (coronary artery disease) (Acute) Acute on chronic combined systolic and diastolic CHF (congestive heart failure) (Acute) Hyperglycemia (Acute) Lactic acidosis (Acute) severe sepsis with NSTEMI, hypoxia, ZOFIA, and lactic acidosis - no fever here, wbc and lactate improving. Tachycardia better. Cr improving. TTE showed no veg. Covid neg. Single Bcx (+) MRSE per pcr. Stop vanc now. Cont zosyn, but so far no clear evidence of infection. will follow
[2020-04-24 11:30] LABS: Bedside Glucose 375 mg/dL (70-110)
[2020-04-24 19:05] LABS: Bedside Glucose 298 mg/dL (70-110)
[2020-04-24] MEDS: Atorvastatin Calcium 80 MG Tablet PO (21:36)
[2020-04-24] MEDS: Zolpidem Tartrate 5 MG Tablet PO (21:40)
[2020-04-24 21:56] LABS: Bedside Glucose 316 mg/dL (70-110)
[2020-04-25] VITALS (25 sets, daily range): BP systolic 99–116; BP diastolic 55–77; PULSE 68–97; RESP 12–28; TEMP 36.3–36.9; O2SAT 94–98
[2020-04-25] MEDS: Clopidogrel Bisulfate 75 MG Tablet PO (05:29)
[2020-04-25] MEDS: 0.9% Normal Saline 1,000 ML 15 ML IV ×2 (05:29→10:42)
[2020-04-25] MEDS: Furosemide 40 MG/4 ML Vial IV (05:29)
[2020-04-25] MEDS: Aspirin 81 MG TAB.CHEW PO (05:30)
[2020-04-25] MEDS: Carvedilol 6.25 MG Tablet PO ×2 (05:30→21:12)
[2020-04-25] MEDS: Lisinopril 2.5 MG Tablet PO ×2 (05:30→21:12)
[2020-04-25] MEDS: 0.9% Saline Lock 10 ML Syringe IV (05:31)
[2020-04-25 06:01] LABS: Bedside Glucose 284 mg/dL (70-110)
[2020-04-25 06:04] LABS: Absolute Neutrophil Count 4.1 X10^3/uL (2.0-7.7); Basophil# 0.03 X10^3/uL; Basophil% 0.5 % (0-1); Eosinophil# 0.09 X10^3/uL; Eosinophils% 1.4 % (0-5); Hematocrit 32.9 % (40-54); Hemoglobin 10.2 g/dL (13.0-16.5); Mean Corpuscular Hgb 27.9 pg (27.0-32.0); Mean Corpuscular Volume 89.9 fL (80-94); Mean Platelet Vol. 10.5 fl (6.2-12.0); Monocyte# 0.58 X10^3/uL; Monocyte% 8.9 % (0-10); NRBC Flagged by Analyzer 0 % (0-5); Neutrophil # 4.12 X10^3/uL (2.7-7.7); Neutrophil % 62.9 % (47-70); Platelet Count 216 K/mm3 (150-450); RBC Distribution Width CV 16.1 % (11.6-14.6); RBC Distribution Width SD 53.5 fl (35.1-43.9); Red Blood Count 3.66 M/mm3 (4.6-6.2); White Blood Count 6.5 K/mm3 (4.4-11.0)
[2020-04-25 06:30] LABS: Anion Gap 7 (5-15); BUN 22 mg/dL (7-18); BUN/Creat Ratio 21.8 RATIO (10-20); Calcium,Total 8.6 mg/dL (8.5-10.1); Chloride 108 mmol/L (98-107); Creatinine, Serum 1.01 mg/dL (0.70-1.30); EST Glomerular Filtration Rate 78 mL/min (>60); Est Glom Filt Rate - Afr Amer 95 mL/min (>60); Estimated Creatinine Clearance 75.59 ml/min; Glucose 269 mg/dL (74-106); Magnesium 1.9 mg/dL (1.6-2.6); Potassium 3.5 mmol/L (3.5-5.1); Sodium Level 140 mmol/L (136-145)
[2020-04-25] MEDS: Ipratropium/Albuterol Sulfate 3 ML AMPUL.NEB INHALATION ×3 (07:30→19:25)
[2020-04-25 07:59] LABS: Phosphorus 3.3 mg/dL (2.5-4.9)
--- NOTE | 2020-04-25 10:25 | NURSING ---
According to patient insurance [employer] PPO, In [facility] are as follows: [facility], [facility] [employer] [facility], [place], [place], [facility], [facility], . Maricel Cisneros RNCM
[2020-04-25] MEDS: Potassium Chloride 10mEq/100mL 10 MEQ/100 ML IV.SOLN. 100 MEQ IV BOLUS ×2 (10:37→11:41)
[2020-04-25] MEDS: Insulin Lispro 100 UNIT/ML INSULN.PEN 15 UNIT SC ×2 (11:17→17:59)
[2020-04-25 11:30] LABS: Bedside Glucose 226 mg/dL (70-110)
[2020-04-25] MEDS: 0.9% Normal Saline 1,000 ML 60 ML IV (12:05)
--- NOTE | 2020-04-25 14:40 | PCM.PN.ID ---
Patient Problems: Active and Suspected Problems (Last Updated 04/22/20 @ 20:[address] Juan Claros MD) Respiratory distress (Acute) Elevated troponin (Acute) Acute hypoxemic respiratory failure (Acute) NSTEMI (non-ST elevated myocardial infarction) (Acute) CAD (coronary artery disease) (Acute) Sepsis (Acute) Acute on chronic combined systolic and diastolic CHF (congestive heart failure) (Acute) Hyperglycemia (Acute) Lactic acidosis (Acute) Subjective: Feeling ok, stable off abx, no fever, no cough - Physical Exam Vitals/I&O's: Vital Signs Temp Pulse Resp BP Pulse Ox 97.4 F L 96 22 H 108/67 95 04/25/20 14:24 04/25/20 14:33 04/25/20 14:33 04/25/20 14:24 04/25/20 14:33 Oxygen Flow Rate (L/min) 2 Oxygen Delivery Method Room Air Weight: 99.8 kg Body Mass Index (BMI) 30.7 Finger Stick Blood Glucose 73 Intake and Output for Last 24 Hours 04/23/20 04/24/20 04/25/20 23:59 23:59 23:59 Intake Total 2040.75 / 2040.75 1620 / 1620 1708.75 / 1708.75 Output Total 2500 / 2750 2850 / 2850 2250 / 2250 Balance -459.25 / -709.25 -1230 / -1230 -541.25 / -541.25 General: Alert, Cooperative, No apparent distress Lungs: Clear to auscultation, Normal air movement Cardiovascular: Regular rate, Regular Rhythm Abdomen: Soft, Non Tender, Non-Distended Skin: No rashes Microbiology Past 72 Hours 04/22/20 18:20 Blood Culture (Wb) - Anticubital Right Blood Culture - Preliminary No growth in 48 hours. 04/22/20 18:30 Blood Culture (Wb) - Anticubital Left Bacteria Detection (PCR) - Final Staphylococcus epidermidis 04/22/20 18:30 Blood Culture (Wb) - Anticubital Left Blood Culture - Preliminary Coag Negative Staph 04/23/20 09:50 Mucosa - Nose Respiratory Panel (PCR) - Final 04/23/20 10:25 Urine Catheter - Abreu Streptococcus pneumoniae Antigen (M - Final 04/23/20 08:01 Urine Catheter - Abreu Legionella Antigen - Final Laboratory Results 04/24/20 16:39: POC Glucose 298 H 04/24/20 21:34: POC Glucose 316 H 04/25/20 05:36: POC Glucose 284 H 04/25/20 05:52: WBC 6.5, RBC 3.66 L, Hgb 10.2 L, Hct 32.9 L, MCV 89.9, MCH 27.9, MCHC 31.0 L, RDW Std Deviation 53.5 H, RDW Coeff of Estrada 16.1 H, Plt Count 216, MPV 10.5, Immature Gran % (Auto) 0.300, Neut % (Auto) 62.9, Lymph % (Auto) 26.0, [place] % (Auto) 8.9, Eos % (Auto) 1.4, Baso % (Auto) 0.5, Absolute Neuts (auto) 4.1, Absolute Lymphs (auto) 1.70, Nucleated RBC % 0 04/25/20 05:52: Sodium 140, Potassium 3.5, Chloride 108 H, Carbon Dioxide 25.0, Anion Gap 7, BUN 22 H, Creatinine 1.01, Estim Creat Clear Calc 75.59, Est GFR (MDRD) Af Amer 95, Est GFR (MDRD) Non-Af 78, BUN/Creatinine Ratio 21.8 H, Glucose 269 H, Calcium 8.6, Magnesium 1.9 04/25/20 05:52: Phosphorus 3.3 04/25/20 11:13: POC Glucose 226 H Current Medications Acetaminophen (Tylenol) 650 mg PO Q6H PRN PRN PRN Reason: Pain Score 1-10/Temp > 100.7 F Albuterol Sulfate (Ventolin Aerosols) 2.5 mg INHALATION Q2H PRN PRN PRN Reason: SOB/Wheezing Albuterol/Ipratropium (Duoneb) 3 ml INHALATION Q6H.RT [facility] Last Admin: 04/25/20 13:57 Dose: 3 ml Documented by: Aspirin (Aspirin, Baby) 81 mg PO DAILY@0800 [facility] Last Admin: 04/25/20 05:30 Dose: 81 mg Documented by: Atorvastatin Calcium (Lipitor) 80 mg PO QHS [facility] Last Admin: 04/24/20 21:36 Dose: 80 mg Documented by: Carvedilol (Coreg) 6.25 mg PO BID [facility] Last Admin: 04/25/20 05:30 Dose: 6.25 mg Documented by: Clopidogrel Bisulfate (Plavix) 75 mg PO DAILY [facility] Last Admin: 04/25/20 05:29 Dose: 75 mg Documented by: Enoxaparin Sodium (Lovenox) 100 mg SC Q12 [facility] Last Admin: 04/25/20 11:57 Dose: Not Given Documented by: Furosemide (Lasix) 40 mg IV Q12H [facility] Last Admin: 04/25/20 05:29 Dose: 40 mg Documented by: Nitroglycerin/Dextrose () 250 mls @ 3 mls/hr IV .[id number] [facility]; Protocol Stop: 04/26/20 05:28 Last Titration: 04/23/20 18:00 Dose: 0 mcg/min, 0 mls/hr Documented by: Sodium Chloride () 250 mls @ 15 mls/hr IV .[id number] PRN PRN Reason: Saline Flush Last Infusion: 04/23/20 16:29 Dose: 0 mls/hr Documented by: Sodium Chloride () 250 mls @ 15 mls/hr IV .[id number] PRN PRN Reason: Additional IVPB Infusion Sodium Chloride () 1,000 mls @ 0 mls/hr IV .Q0M [facility] Last Infusion: 04/25/20 12:04 Dose: Infused Documented by: Sodium Chloride () 1,000 mls @ 60 mls/hr IV .[id number] [facility] Stop: 04/25/20 17:19 Last Admin: 04/25/20 12:05 Dose: 60 mls/hr Documented by: Insulin Glargine (Lantus (Bk)) 25 units SC BID [facility] Last Admin: 04/25/20 11:19 Dose: 25 u Documented by: Insulin Human Lispro (Humalog Kwikpen (Bk)) 15 unit SC TIDAC [facility] Last Admin: 04/25/20 11:17 Dose: 15 u Documented by: Lisinopril (Zestril) 2.5 mg PO BID [facility] Last Admin: 04/25/20 05:30 Dose: 2.5 mg Documented by: Ondansetron HCl (Zofran) 4 mg IV Q8H PRN PRN PRN Reason: NAUSEA/VOMITING Pantoprazole Sodium (Protonix) 40 mg PO DAILY [facility] Last Admin: 04/24/20 08:30 Dose: 40 mg Documented by: Potassium Chloride (K-Dur) 40 meq PO DAILYCM [facility] Last Admin: 04/25/20 10:37 Dose: 40 meq Documented by: Senna/Docusate Sodium (Senokot-S, Donna-Colace) 2 tablet PO BID PRN PRN PRN Reason: Constipation Sodium Chloride () 10 - 40 ml IV UD PRN PRN Reason: SALINE FLUSH Last Admin: 04/25/20 05:31 Dose: 20 ml Documented by: Zolpidem Tartrate (Ambien (Generic)) 5 mg PO QHS [facility] Last Admin: 04/24/20 21:40 Dose: 5 mg Documented by: Medical Necessity - Tobacco Use Smoking Status: Current every day smoker Tobacco Use: Cigarettes Route of nutrition/ use of supplements: [] Nutritional Intake: [] IV Site: [] Abreu Catheter: [] - Assessment/Plan Antibiotics: [] Assessment/Plan: [] Active and Suspected Problems (Last Updated 04/22/20 @ 20:[address] Juan Claros MD) Respiratory distress (Acute) Elevated troponin (Acute) Acute hypoxemic respiratory failure (Acute) NSTEMI (non-ST elevated myocardial infarction) (Acute) CAD (coronary artery disease) (Acute) Acute on chronic combined systolic and diastolic CHF (congestive heart failure) (Acute) Hyperglycemia (Acute) Lactic acidosis (Acute) severe sepsis with NSTEMI, hypoxia, ZOFIA, and lactic acidosis - no fever here, wbc and lactate improving. Tachycardia better. Cr improving. TTE showed no veg. Covid neg. Single Bcx (+) MRSE per pcr. Stable off of abx. No clear evidence of infection. will follow as needed
--- NOTE | 2020-04-25 14:43 | CL.D_ITS ---
Patient Name: RAPHAEL HADDAD Study Date: 04/25/2020 Performing: Makenzie Gee MD Ht: 71 inches 180 cm : 1950 Wt: 220.8 lbs 100 kg Age: 69 Gender: male BSA: 2.2 PROCEDURE(S) PERFORMED [id number], CORONARY OR GRAFT, INITIAL VESSEL CLINICAL PROFILE AND INDICATIONS Indications: ACS > 24 hrs Heart Failure: NYHA Class: 3, Newly Diagnosed: Yes, Heart Failure Type: Systolic Stress/Imaging Stress/Image Study Performed: No CAD Presentations: Non-STEMI. Symptom onset Date/Time: Time Not Available CONCLUSIONS Triple vessel CAD. RECOMMENDATIONS CABG + AVR (pt. has moderate by echo) DESCRIPTION OF PROCEDURE The patient arrived to the procedure lab. The risks and benefits of the procedure as well as a full d escription of our services here and current unavailability of surgical backup were fully explained to the patient and/or their significant other prior to the catheterization. The Timeout was completed, verifying the correct patient and procedure. The patient's procedural site was prepped and draped in the usual fashion. Local anesthetic was given subcutaneously to right radial region with Lidocaine 2% . Using a modified Seldinger technique, arterial access was obtained via the right radial artery, a 6 Fr sheath was inserted. Left Coronary Artery selective angiography was performed in multiple views u sing a 5 Fr. JL3.5 catheter. Right Coronary Artery selective angiography was then performed in multip le views using a 5 Fr. JR 4 catheter.The arterial sheath was pulled and a TR Band was applied for hem ostasis CORONARY ANGIOGRAPHY DOMINANCE: Right Dominant LEFT MAIN: 25 % Stenosis LEFT ANTERIOR DESCENDING ARTERY: OSTIAL LAD: 60 % Stenosis. FFR in the LAD was 0.71 CIRCUMFLEX ARTERY: MID CIRC: 70 % Stenosis RIGHT CORONARY ARTERY: PROX RCA: 100 % Stenosis. The distal RCA fills via bridging collaterals/microchannels and the PDA yaima ls via L to R collaterals COMPLICATIONS No Complications PROCEDURE MEDICATIONS Fentanyl 50 mcg IV Versed 1 mg IV Oxygen: 2 L/min via nasal cannula Adenosine drip for FFR 8.3 ml IV @ 04/25/2020 09:26:30 Heparin given IA 04/25/2020 08:57:27 Heparin 6000 unit(s) IV 04/25/2020 09:12:20 Verapamil 2.5mg, Ntg 100mcgs, 3000 units of Heparin given IA 04/25/2020 08:57:27 SUMMARY OF HEMODYNAMIC DATA Time AIR REST ECG 08:39:35 AO 79/57 (67) SA 08:59:33 AO 89/62 (75) 09:03:15 AO 105/56 (79) 09:11:46 Signed By Makenzie Gee MD On 04/25/2020 2:42:22 PM Makenzie Gee MD
--- NOTE | 2020-04-25 14:58 | NURSING ---
Read and reviewed SN documentation
--- NOTE | 2020-04-25 15:50 | DS.PCM_ITS ---
Discharge Date and Diagnosis Date of Admission: 04/22/20 Date of Discharge: 04/26/20 - Primary Discharge Diagnosis Acute Problems: Active Problems (Last Updated 04/22/20 @ 20:[address] Juan Claros MD) Respiratory distress (Acute) Elevated troponin (Acute) Acute hypoxemic respiratory failure (Acute) NSTEMI (non-ST elevated myocardial infarction) (Acute) CAD (coronary artery disease) (Acute) Sepsis (Acute) Acute on chronic combined systolic and diastolic CHF (congestive heart failure) (Acute) Hyperglycemia (Acute) Lactic acidosis (Acute) - Secondary Discharge Diagnosis Chronic Problems: Chronic Problems (Last Updated 04/22/20 @ 20:[address] Juan Claros MD) Acute exacerbation of CHF (congestive heart failure) (Chronic) Type 2 diabetes mellitus (Chronic) Lumbar spinal stenosis (Chronic) Atherosclerosis of coronary artery without angina pectoris (Chronic) Non-STEMI (non-ST elevated myocardial infarction) (Chronic 02/25/20) Ischemic cardiomyopathy (Chronic) Nonrheumatic aortic (valve) stenosis (Chronic) Secondary pulmonary arterial hypertension (Chronic) Essential (primary) hypertension (Chronic) Peripheral vascular disease (Chronic) Hyperlipidemia (Chronic) Nicotine dependence (Chronic) COPD (chronic obstructive pulmonary disease) (Chronic) Obstructive sleep apnea (Chronic) Hospital Course and Treatment Imaging Results: 04/25/20 05:55 CXR [Chest PA and Lateral] [RAD] AM (NON MEDS) Operations: None, - - debridement of right foot and open hallux amputation Summary of Care Provided: [] This is a 69 years old male patient presented to the emergency room because of shortness of breath or chest pain, found to have acute on chronic combined diastolic and systolic CHF, non-ST elevation WI, lactic acidosis, acute kidney injury and hyperglycemia without evidence of DKA. #1 acute on chronic combined diastolic and systolic CHF: Patient is admitted in ICU. EKG shows sinus tachycardia 158/min with short routine worsened and ST depression in 1 and aVL suggestive of mild lateral ischemia although heart rotation ST-T changes from previous EKG of February 25, 2020 which showed sinus tachycardia at 145 beats minute. Patient was started on IV nitroglycerin drip which is discontinued now. Patient blood pressure and heart rate improved. 04/25: Patient had cardiac catheter today which shows triple-vessel coronary artery disease. Left main 25%, ostial LAD 60%, FFR 0.71, mid circumflex 70% stenosis, proximal RCA 100% stenosis. Distal RCA fills via collaterals and PDA fills via [id number] collaterals. Patient needs CABG. I talked to the [facility] corporate administrative assistant, [place] and patient is accepted in [facility] but she is on waiting list. Labs reviewed. Magnesium, potassium and phosphorus are in normal range. [facility] transfer line was called and patient accepted by hospitalist Dr. Tom. #2 non-ST elevation WI due to acute on chronic systolic and diastolic heart failure with triple-vessel coronary artery disease: Patient predominant symptom was shortness of breath, VALADEZ progressed to dyspnea at rest. Troponin maxed at 28.6. BNP 895. Chest x-ray individually reviewed and shows interstitial edema. Patient had cardiac catheterization on Nov, 2019 that revealed EF of 35%, mild irregularities of the left main artery with less than 30% stenosis, diffusely diseased left circumflex up to 40 % stenosis, diffusely diseased LAD up to 50%, proximal RCA is occluded. At that time, no interventions were performed and medical treatment continued. 2D echo on February,, revealed ejection fraction 45%, stage II diastolic dysfunction, mild to moderate left ear, mild MR and pulmonary artery pressure is 45 consistent with mild pulmonary hypertension. continue aspirin, Coreg, Plavix, lisinopril low-dose and therapeutic bridging Lovenox. 2D echo on 04/23 interpretation Summary Moderate segmental systolic dysfunction (see wall motion). The estimated ejection fraction is 35 %. The left atrium is mildly enlarged. There is mild mitral annular calcification. Mild diffuse mitral valve thickening. Mild (1+) mitral valve insufficiency. Mild tricuspid valve insufficiency. Moderate aortic stenosis. Trivial aortic valve insufficiency. Right ventricular systolic pressure estimated to be 37 mmHg. Transmitral diastolic flow velocities suggest diastolic dysfunction (pseudonormal pattern). #3 lactic acidosis with no evidence of infection/sepsis: This is likely due to tissue hypoxemia. Patient denies fever at home and afebrile in the hospital. Leukocytosis resolved. Patient had nonspecific cough and sputum that may be from interstitial edema. Blood culture initially shows coagulase-negative staph, staph epidermidis. Empirically patient was put initially on vancomycin and Zosyn which was discontinued on 04/24. Repeat blood culture is negative for more than 48 hours. Discussed with ID. Infection/sepsis ruled out. #4 acute kidney injury most likely secondary to acute on chronic heart failure: Resolved. Admitting BUN/creatinine 15/1.47, most recent 18.09. Monitor kidney function and electrolytes. #5 hyperglycemia: Without evidence of DKA. Blood glucose is 473. Serum bicarb and anion gap are normal. ABG revealed normal pH, 7.3 7/40/87 on 80% FiO2 20/14. BiPAP during naps and rescue. Plan: Accu-Cheks every 4 hours, insulin sliding scale, continue Lantus twice daily as well as pre-meal Humalog. Hemoglobin A1c was 13.3% on June,. A1c recent 9.7 on 04/22. #6 CAD: Without prior history of cardiac interventions. #7 type 2 diabetes mellitus: Uncontrolled. Plan as above, will check hemoglobin A1c again. #8 chronic systolic CHF/ischemic cardiomyopathy: He is in acute on chronic CHF as mentioned above. Plan as above. #9 COPD: Currently, on BiPAP. ABG reviewed as above. Plan for bronchodilators, continue BiPAP. #10 hypertension: Initially, blood pressure was elevated but improved with IV nitroglycerin drip. Plan to continue Coreg, IV Lasix. #11 peripheral vascular disease: Stable, continue aspirin and statins as well as Plavix. 8 seems patient has left femoropopliteal bypass surgery based on the site of surgical scar although no surgical details available. #12 CODE STATUS: When I asked the patient about the CODE STATUS, he said he is not sure at this time. I requested the patient to think about his CODE STATUS and what we should do in case of cardiorespiratory arrest. #13 DVT prophylaxis: INR is 1.8, at this activity, continue Coumadin, continue Lovenox for bridging. The patient is transferred to [facility]. Total time of the visit including total time spent in counseling or coordination of care, (more than 50% of the total time, spent in obtaining medical information from nurses and other ancillary care providers), discussion with leasing sales consultant and [facility] household coordinator and corporate administrative assistant, Dr Avery and [facility] coordinator, review of labs and imaging is 30 minutes. Objective: Patient is transferred to [facility]. Please see progress note of the same date for physical findings. - Physical Exam Vitals/I&O's: Vital Signs Temp Pulse Resp BP Pulse Ox 97.6 F L 68 18 99/55 L 96 04/25/20 10:30 04/25/20 10:30 04/25/20 10:30 04/25/20 10:30 04/25/20 10:30 Oxygen Flow Rate (L/min) 2 Oxygen Delivery Method Room Air Weight: 220 lb 0.341 oz Body Mass Index (BMI) 30.7 Finger Stick Blood Glucose 73 Intake and Output for Last 24 Hours 04/23/20 04/24/20 04/25/20 23:59 23:59 23:59 Intake Total 2040.75 / 2040.75 1620 / 1620 828.25 / 828.25 Output Total 2500 / 2750 2850 / 2850 675 / 675 Balance -459.25 / -709.25 -1230 / -1230 153.25 / 153.25 Microbiology Past 72 Hours 04/22/20 18:20 Blood Culture (Wb) - Anticubital Right Blood Culture - Preliminary No growth in 48 hours. 04/22/20 18:30 Blood Culture (Wb) - Anticubital Left Bacteria Detection (PCR) - Final Staphylococcus epidermidis 04/22/20 18:30 Blood Culture (Wb) - Anticubital Left Blood Culture - Preliminary Coag Negative Staph 04/23/20 09:50 Mucosa - Nose Respiratory Panel (PCR) - Final 04/23/20 10:25 Urine Catheter - Abreu Streptococcus pneumoniae Antigen (M - Final 04/23/20 08:01 Urine Catheter - Abreu Legionella Antigen - Final Laboratory Results 04/24/20 11:07: POC Glucose 375 H 04/24/20 16:39: POC Glucose 298 H 04/24/20 21:34: POC Glucose 316 H 04/25/20 05:36: POC Glucose 284 H 04/25/20 05:52: WBC 6.5, RBC 3.66 L, Hgb 10.2 L, Hct 32.9 L, MCV 89.9, MCH 27.9, MCHC 31.0 L, RDW Std Deviation 53.5 H, RDW Coeff of Estrada 16.1 H, Plt Count 216, MPV 10.5, Immature Gran % (Auto) 0.300, Neut % (Auto) 62.9, Lymph % (Auto) 26.0, [place] % (Auto) 8.9, Eos % (Auto) 1.4, Baso % (Auto) 0.5, Absolute Neuts (auto) 4.1, Absolute Lymphs (auto) 1.70, Nucleated RBC % 0 04/25/20 05:52: Sodium 140, Potassium 3.5, Chloride 108 H, Carbon Dioxide 25.0, Anion Gap 7, BUN 22 H, Creatinine 1.01, Estim Creat Clear Calc 75.59, Est GFR (MDRD) Af Amer 95, Est GFR (MDRD) Non-Af 78, BUN/Creatinine Ratio 21.8 H, Glucose 269 H, Calcium 8.6, Magnesium 1.9 04/25/20 05:52: Phosphorus 3.3 Current Medications Acetaminophen (Tylenol) 650 mg PO Q6H PRN PRN PRN Reason: Pain Score 1-10/Temp > 100.7 F Albuterol Sulfate (Ventolin Aerosols) 2.5 mg INHALATION Q2H PRN PRN PRN Reason: SOB/Wheezing Albuterol/Ipratropium (Duoneb) 3 ml INHALATION Q6H.RT [facility] Last Admin: 04/25/20 07:30 Dose: 3 ml Documented by: Aspirin (Aspirin, Baby) 81 mg PO DAILY@0800 [facility] Last Admin: 04/25/20 05:30 Dose: 81 mg Documented by: Atorvastatin Calcium (Lipitor) 80 mg PO QHS [facility] Last Admin: 04/24/20 21:36 Dose: 80 mg Documented by: Carvedilol (Coreg) 6.25 mg PO BID [facility] Last Admin: 04/25/20 05:30 Dose: 6.25 mg Documented by: Clopidogrel Bisulfate (Plavix) 75 mg PO DAILY [facility] Last Admin: 04/25/20 05:29 Dose: 75 mg Documented by: Enoxaparin Sodium (Lovenox) 100 mg SC Q12 [facility] Last Admin: 04/24/20 21:37 Dose: 100 mg Documented by: Furosemide (Lasix) 40 mg IV Q12H [facility] Last Admin: 04/25/20 05:29 Dose: 40 mg Documented by: Nitroglycerin/Dextrose () 250 mls @ 3 mls/hr IV .[id number] [facility]; Protocol Stop: 04/26/20 05:28 Last Titration: 04/23/20 18:00 Dose: 0 mcg/min, 0 mls/hr Documented by: Sodium Chloride () 250 mls @ 15 mls/hr IV .[id number] PRN PRN Reason: Saline Flush Last Infusion: 04/23/20 16:29 Dose: 0 mls/hr Documented by: Sodium Chloride () 250 mls @ 15 mls/hr IV .[id number] PRN PRN Reason: Additional IVPB Infusion Sodium Chloride () 1,000 mls @ 0 mls/hr IV .Q0M [facility] Last Admin: 04/25/20 10:42 Dose: 15 mls/hr Documented by: Insulin Glargine (Lantus ([facility])) 25 units SC BID [facility] Last Admin: 04/24/20 21:36 Dose: 25 u Documented by: Insulin Human Lispro (Humalog Kwikpen ([facility])) 15 unit SC TIDAC [facility] Last Admin: 04/25/20 05:20 Dose: Not Given Documented by: Lisinopril (Zestril) 2.5 mg PO BID [facility] Last Admin: 04/25/20 05:30 Dose: 2.5 mg Documented by: Ondansetron HCl (Zofran) 4 mg IV Q8H PRN PRN PRN Reason: NAUSEA/VOMITING Pantoprazole Sodium (Protonix) 40 mg PO DAILY [facility] Last Admin: 04/24/20 08:30 Dose: 40 mg Documented by: Potassium [facility] ([facility]) [facility] Admin: 04/25/20 10:37 Dose: 40 meq Documented by: Senna/Docusate Sodium (Senokot-S, Donna-Colace) 2 tablet PO BID PRN PRN PRN Reason: Constipation Sodium Chloride () 10 - 40 ml IV UD PRN PRN Reason: SALINE FLUSH Last Admin: 04/25/20 05:31 Dose: 20 ml Documented by: Zolpidem Tartrate (Ambien (Generic)) 5 mg PO QHS [facility] Last Admin: 04/24/20 21:40 Dose: 5 mg Documented by: Home Medications: Medications to take at Discharge Zolpidem Tartrate [Ambien] 10 mg PO QHS 11/06/15 Multivitamin [Daily Multiple Vitamin] 1 ea PO DAILY 07/17/19 Baclofen 10 mg PO TID 03/11/20 Roflumilast [Daliresp] 500 mcg PO DAILY 03/11/20 Insulin Glargine [Lantus SoloStar Pen] 25 units SUBCUT BID #1 pen 03/13/20 clopidogrel 75 mg tablet 75 mg PO DAILY #90 tab 03/19/20 furosemide 40 mg tablet 40 mg PO BID@1000,1800 #180 tab 03/19/20 rosuvastatin 40 mg tablet 40 mg PO QHS #90 tab 03/19/20 Aspirin [Aspirin, Baby] 81 mg PO DAILY@0800 04/22/20 Carvedilol 6.25 mg PO BID 04/22/20 Enoxaparin Sodium [Lovenox] 100 mg SQ Q12H 04/22/20 Insulin Lispro [Humalog KwikPen] 15 unit SUBCUT TIDAC 04/22/20 Omeprazole 40 mg PO DAILY 04/22/20 Potassium Chloride [Klor-Con M20] 20 meq PO BID 04/22/20 Warfarin [Coumadin] 2.5 mg PO DAILY 04/22/20 Primary Care Physician: Saurabh Hernandez Chi, MD [Primary Care Provider] - Medical Necessity - Tobacco Use Smoking Status: Current every day smoker Tobacco Use: Cigarettes Meaningful Use Info Meaningful Use Diagnoses (Choose all that apply): AMI - AMI/Post PCI/Angioplasty Aspirin given w/in 24hrs of arrival?: Yes ASA at discharge?: Yes Statins at discharge?: Yes Donte/ARB at discharge?: Yes Beta Supriya at discharge?: Yes Done w/ Acute WI measure.: Yes Documented LVEF (%): 35 Please cancel the billing charge of progress note of the same date. Inpatient E&M: [id number] Disch Hosp
--- NOTE | 2020-04-25 16:33 | PN_ITS ---
Patient Problems: Active and Suspected Problems (Last Updated 04/22/20 @ 20:[address] Juan Claros MD) Respiratory distress (Acute) Elevated troponin (Acute) Acute hypoxemic respiratory failure (Acute) NSTEMI (non-ST elevated myocardial infarction) (Acute) CAD (coronary artery disease) (Acute) Sepsis (Acute) Acute on chronic combined systolic and diastolic CHF (congestive heart failure) (Acute) Hyperglycemia (Acute) Lactic acidosis (Acute) Objective: Seen and examined. Patient had cardiac cath in the morning and shows triple- vessel coronary artery disease. No fever or chills. Blood pressure and heart rate are controlled. Patient on room air. Physical exam General: Alert, Oriented x3, Cooperative HEENT: Atraumatic, PERRLA, EOMI, Normocephalic Oral: No Gingival or Mucosal Lesions/ Ulcerations Neck: Supple, No JVD, Negative Carotid Bruits Lungs: Air entry diminished in bilateral lung bases. No crepitation/rhonchi. No tachypnea, no hypoxia Cardiovascular: Regular rate, Regular Rhythm, Normal S1, Normal S2, ejection systolic murmur present over aortic area, pansystolic murmur over left lower sternal border and cardiac apex. Surgical scar over left calf and thigh. Abdomen: Bowel Sounds Present, Soft, Non Tender, Non-Distended : No renal angle tenderness. No suprapubic tenderness. Extremities: Right radial artery access site, no hematoma. No edema, Capillary Refill Less than 3 Seconds Skin: No rashes, No breakdown Musculoskeletal: No Tenderness to Palpation of Joints or Extremities Neurological: Cranial nerves II-XII grossly intact, Deep Tendon Reflexes 2+/4 and Symmetrical, Neuro grossly intact Psych/Mental Status: Normal Affect, Appropriate. Vitals/I&O's: Vital Signs Temp Pulse Resp BP Pulse Ox 97.4 F L 96 18 108/67 95 04/25/20 14:45 04/25/20 14:45 04/25/20 14:45 04/25/20 14:45 04/25/20 14:45 Oxygen Flow Rate (L/min) 2 Oxygen Delivery Method Room Air Weight: 220 lb 0.341 oz Body Mass Index (BMI) 30.7 Finger Stick Blood Glucose 73 Intake and Output for Last 24 Hours 04/23/20 04/24/20 04/25/20 23:59 23:59 23:59 Intake Total 2040.75 / 2040.75 1620 / 1620 1708.75 / 1708.75 Output Total 2500 / 2750 2850 / 2850 2250 / 2250 Balance -459.25 / -709.25 -1230 / -1230 -541.25 / -541.25 Microbiology Past 72 Hours 04/22/20 18:20 Blood Culture (Wb) - Anticubital Right Blood Culture - Preliminary No growth in 48 hours. 04/22/20 18:30 Blood Culture (Wb) - Anticubital Left Bacteria Detection (PCR) - Final Staphylococcus epidermidis 04/22/20 18:30 Blood Culture (Wb) - Anticubital Left Blood Culture - Preliminary Coag Negative Staph 04/23/20 09:50 Mucosa - Nose Respiratory Panel (PCR) - Final 04/23/20 10:25 Urine Catheter - Abreu Streptococcus pneumoniae Antigen (M - Final 04/23/20 08:01 Urine Catheter - Abreu Legionella Antigen - Final Laboratory Results 04/24/20 16:39: POC Glucose 298 H 04/24/20 21:34: POC Glucose 316 H 04/25/20 05:36: POC Glucose 284 H 04/25/20 05:52: WBC 6.5, RBC 3.66 L, Hgb 10.2 L, Hct 32.9 L, MCV 89.9, MCH 27.9, MCHC 31.0 L, RDW Std Deviation 53.5 H, RDW Coeff of Estrada 16.1 H, Plt Count 216, MPV 10.5, Immature Gran % (Auto) 0.300, Neut % (Auto) 62.9, Lymph % (Auto) 26.0, [place] % (Auto) 8.9, Eos % (Auto) 1.4, Baso % (Auto) 0.5, Absolute Neuts (auto) 4.1, Absolute Lymphs (auto) 1.70, Nucleated RBC % 0 04/25/20 05:52: Sodium 140, Potassium 3.5, Chloride 108 H, Carbon Dioxide 25.0, Anion Gap 7, BUN 22 H, Creatinine 1.01, Estim Creat Clear Calc 75.59, Est GFR (MDRD) Af Amer 95, Est GFR (MDRD) Non-Af 78, BUN/Creatinine Ratio 21.8 H, Glucose 269 H, Calcium 8.6, Magnesium 1.9 04/25/20 05:52: Phosphorus 3.3 04/25/20 11:13: POC Glucose 226 H Current Medications Acetaminophen (Tylenol) 650 mg PO Q6H PRN PRN PRN Reason: Pain Score 1-10/Temp > 100.7 F Albuterol Sulfate (Ventolin Aerosols) 2.5 mg INHALATION Q2H PRN PRN PRN Reason: SOB/Wheezing Albuterol/Ipratropium (Duoneb) 3 ml INHALATION Q6H.RT [facility] Last Admin: 04/25/20 13:57 Dose: 3 ml Documented by: Aspirin (Aspirin, Baby) 81 mg PO DAILY@0800 [facility] Last Admin: 04/25/20 05:30 Dose: 81 mg Documented by: Atorvastatin Calcium (Lipitor) 80 mg PO QHS [facility] Last Admin: 04/24/20 21:36 Dose: 80 mg Documented by: Carvedilol (Coreg) 6.25 mg PO BID [facility] Last Admin: 04/25/20 05:30 Dose: 6.25 mg Documented by: Clopidogrel Bisulfate (Plavix) 75 mg PO DAILY [facility] Last Admin: 04/25/20 05:29 Dose: 75 mg Documented by: Enoxaparin Sodium (Lovenox) 100 mg SC Q12 [facility] Last Admin: 04/25/20 11:57 Dose: Not Given Documented by: Furosemide (Lasix) 40 mg IV Q12H [facility] Last Admin: 04/25/20 05:29 Dose: 40 mg Documented by: Nitroglycerin/Dextrose () 250 mls @ 3 mls/hr IV .[id number] [facility] [[email or web address]]; Protocol Stop: 04/26/20 05:28 Last Titration: 04/23/20 18:00 Dose: 0 mcg/min, 0 mls/hr Documented by: Sodium Chloride () 250 mls @ 15 mls/hr IV .[id number] PRN PRN Reason: Saline Flush Last Infusion: 04/23/20 16:29 Dose: 0 mls/hr Documented by: Sodium Chloride () 250 mls @ 15 mls/hr IV .[id number] PRN PRN Reason: Additional IVPB Infusion Sodium Chloride () 1,000 mls @ 0 mls/hr IV .Q0M [facility] Last Infusion: 04/25/20 12:04 Dose: Infused Documented by: Sodium Chloride () 1,000 mls @ 60 mls/hr IV .[id number] [facility] Stop: 04/25/20 17:19 Last Admin: 04/25/20 12:05 Dose: 60 mls/hr Documented by: Insulin Glargine (Lantus ([facility])) 25 units SC BID [facility] Last Admin: 04/25/20 11:19 Dose: 25 u Documented by: Insulin Human Lispro (Humalog Kwikpen ([facility])) 15 unit SC TIDAC [facility] Last Admin: 04/25/20 11:17 Dose: 15 u Documented by: Lisinopril (Zestril) 2.5 mg PO BID [facility] Last Admin: 04/25/20 05:30 Dose: 2.5 mg Documented by: Ondansetron HCl (Zofran) 4 mg IV Q8H PRN PRN PRN Reason: NAUSEA/VOMITING Pantoprazole Sodium (Protonix) 40 mg PO DAILY [facility] Last Admin: 04/24/20 08:30 Dose: 40 mg Documented by: Potassium Chloride (K-Dur) 40 meq PO DAILYCM [facility] Last Admin: 04/25/20 10:37 Dose: 40 meq Documented by: Senna/Docusate Sodium (Senokot-S, Donna-Colace) 2 tablet PO BID PRN PRN PRN Reason: Constipation Sodium Chloride () 10 - 40 ml IV UD PRN PRN Reason: SALINE FLUSH Last Admin: 04/25/20 05:31 Dose: 20 ml Documented by: Zolpidem Tartrate (Ambien (Generic)) 5 mg PO QHS [facility] Last Admin: 04/24/20 21:40 Dose: 5 mg Documented by: STROKE Vital Signs/Narrative: Vital Signs Temp Pulse Resp BP Pulse Ox 04/25/20 14:45 97.4 F L 96 18 108/67 95 04/25/20 14:33 96 22 H 95 04/25/20 14:24 97.4 F L 96 22 H 108/67 95 04/25/20 14:20 97.4 F L 94 18 108/67 95 04/25/20 13:57 94 16 04/25/20 12:34 98.3 F 91 18 110/70 96 Medical Necessity - Tobacco Use Smoking Status: Current every day smoker Tobacco Use: Cigarettes Assessment/Plan All Active Problems (Last Updated 04/22/20 @ 20:[address] Juan Claros MD) Respiratory distress (Acute) Elevated troponin (Acute) Acute hypoxemic respiratory failure (Acute) NSTEMI (non-ST elevated myocardial infarction) (Acute) CAD (coronary artery disease) (Acute) Sepsis (Acute) Acute on chronic combined systolic and diastolic CHF (congestive heart failure) (Acute) Hyperglycemia (Acute) Lactic acidosis (Acute) This is a 69 years old male patient presented to the emergency room because of shortness of breath or chest pain, found to have acute on chronic combined diastolic and systolic CHF, non-ST elevation PA, lactic acidosis, acute kidney injury and hyperglycemia without evidence of DKA. #1 acute on chronic combined diastolic and systolic CHF: Patient is admitted in ICU. EKG shows sinus tachycardia 158/min with short routine worsened and ST depression in 1 and aVL suggestive of mild lateral ischemia although heart rotation ST-T changes from previous EKG of February 25, 2020 which showed sinus tachycardia at 145 beats minute. Patient was started on IV nitroglycerin drip which is discontinued now. Patient blood pressure and heart rate improved. 04/25: Patient had cardiac catheter today which shows triple-vessel coronary artery disease. Left main 25%, ostial LAD 60%, FFR 0.71, mid circumflex 70% stenosis, proximal RCA 100% stenosis. Distal RCA fills via collaterals and PDA fills via [id number] collaterals. Patient needs CABG. I talked to the [facility] face worker, Pay[place] and patient is accepted in [facility] but she is on waiting list. Patient might to stay for a day or 2 before the bed opens. #2 non-ST elevation PA due to acute on chronic systolic and diastolic heart failure with triple-vessel coronary artery disease: Patient predominant symptom was shortness of breath, VALADEZ progressed to dyspnea at rest. Troponin maxed at 28.6. BNP 895. Chest x-ray individually reviewed and shows interstitial edema. Patient had cardiac catheterization on Nov, 2019 that revealed EF of 35%, mild irregularities of the left main artery with less than 30% stenosis, diffusely diseased left circumflex up to 40 % stenosis, diffusely diseased LAD up to 50%, proximal RCA is occluded. At that time, no interventions were performed and medical treatment continued. 2D echo on February,, revealed ejection fraction 45%, stage II diastolic dysfunction, mild to moderate left ear, mild MR and pulmonary artery pressure is 45 consistent with mild pulmonary hypertension. continue aspirin, Coreg, Plavix, lisinopril low-dose continue Coumadin and therapeutic bridging Lovenox. 2D echo on 04/23 interpretation Summary Moderate segmental systolic dysfunction (see wall motion). The estimated ejection fraction is 35 %. The left atrium is mildly enlarged. There is mild mitral annular calcification. Mild diffuse mitral valve thickening. Mild (1+) mitral valve insufficiency. Mild tricuspid valve insufficiency. Moderate aortic stenosis. Trivial aortic valve insufficiency. Right ventricular systolic pressure estimated to be 37 mmHg. Transmitral diastolic flow velocities suggest diastolic dysfunction (pseudonormal pattern). #3 lactic acidosis with no evidence of infection/sepsis: This is likely due to tissue hypoxemia. Patient denies fever at home and afebrile in the hospital. Leukocytosis resolved. Patient had nonspecific cough and sputum that may be from interstitial edema. Blood culture initially shows coagulase-negative staph, staph epidermidis. Empirically patient was put initially on vancomycin and Zosyn which was discontinued on 04/24. Repeat blood culture is negative for more than 48 hours. Discussed with ID. Infection/sepsis ruled out. #4 acute kidney injury most likely secondary to acute on chronic heart failure: Resolved. Admitting BUN/creatinine 1.47, most recent 04/08.09. Monitor kidney function and electrolytes. #5 hyperglycemia: Without evidence of DKA. Blood glucose is 473. Serum bicarb and anion gap are normal. ABG revealed normal pH, 7.3 7/40/87 on 80% FiO2 20/14. BiPAP during naps and rescue. Plan: Accu-Cheks every 4 hours, insulin sliding scale, continue Lantus twice daily as well as pre-meal Humalog. Hemoglobin A1c was 13.3% on June,. A1c recent 9.7 on 04/22. #6 CAD: Without prior history of cardiac interventions. #7 type 2 diabetes mellitus: Uncontrolled. Plan as above, will check hemoglobin A1c again. #8 chronic systolic CHF/ischemic cardiomyopathy: He is in acute on chronic CHF as mentioned above. Plan as above. #9 COPD: Currently, on BiPAP. ABG reviewed as above. Plan for bronchodilators, continue BiPAP. #10 hypertension: Initially, blood pressure was elevated but improved with IV nitroglycerin drip. Plan to continue Coreg, IV Lasix. #11 peripheral vascular disease: Stable, continue aspirin and statins as well as Plavix. 8 seems patient has left femoropopliteal bypass surgery based on the site of surgical scar although no surgical details available. #12 CODE STATUS: When I asked the patient about the CODE STATUS, he said he is not sure at this time. I requested the patient to think about his CODE STATUS and what we should do in case of cardiorespiratory arrest. #13 DVT prophylaxis: INR is 1.8, at this activity, continue Coumadin, continue Lovenox for bridging. Total time of the visit including total time spent in counseling or coordination of care, (more than 50% of the total time, spent in obtaining medical information from nurses and other ancillary care providers), discussion with warehouse consultant and [facility] human resources coordinator and face worker, Dr Avery, review of labs and imaging is 30 minutes. Clinical Impression(s) from Imaging Studies Chest X-Ray 04/22/20 18:13 IMPRESSION: Moderate interstitial edema Inpatient E&M: [id number] [facility] Hosp L3
--- NOTE | 2020-04-25 17:38 | RAD_ITS ---
STUDY: X-RAY CHEST REASON FOR EXAM: Male, 69 years old. CHF, HYPERGLYCEMIA TECHNIQUE: Frontal and lateral views of the chest COMPARISON: 22 April 2020 FINDINGS: Pulmonary edema is improving with only minimal residual interstitial thickening remaining. There is no pneumothorax or pleural effusions. Cardiac size is normal. There is no pneumonia. Skeletal structures are intact. There is no gas under the diaphragms. RAD/Chest PA and Lateral IMPRESSION: Near resolution of pulmonary edema. Electronically Signed: Tianna Parker, at 19:34 EDT Tel , Service support ,
--- NOTE | 2020-04-25 18:08 | NURSING ---
[facility] called to check on bed status, bed request made, no beds available.
[2020-04-25 19:11] LABS: Bedside Glucose 234 mg/dL (70-110)
[2020-04-25] MEDS: Atorvastatin Calcium 80 MG Tablet PO (21:12)
[2020-04-25] MEDS: Zolpidem Tartrate 5 MG Tablet PO (21:14)
[2020-04-25 22:26] LABS: Bedside Glucose 298 mg/dL (70-110)
[2020-04-26] VITALS (12 sets, daily range): BP systolic 112–159; BP diastolic 54–74; PULSE 75–93; RESP 18–22; TEMP 36.3–36.9; O2SAT 96–98
[2020-04-26 06:59] LABS: Anion Gap 5 (5-15); BUN 18 mg/dL (7-18); BUN/Creat Ratio 24.9 RATIO (10-20); Calcium,Total 8.8 mg/dL (8.5-10.1); Chloride 108 mmol/L (98-107); Creatinine, Serum 0.72 mg/dL (0.70-1.30); EST Glomerular Filtration Rate 115 mL/min (>60); Est Glom Filt Rate - Afr Amer 139 mL/min (>60); Estimated Creatinine Clearance 76.35 ml/min; Glucose 198 mg/dL (74-106); Potassium 3.8 mmol/L (3.5-5.1); Sodium Level 138 mmol/L (136-145)
[2020-04-26] MEDS: Ipratropium/Albuterol Sulfate 3 ML AMPUL.NEB INHALATION ×3 (07:03→19:08)
[2020-04-26] MEDS: Insulin Lispro 100 UNIT/ML INSULN.PEN 15 UNIT SC ×3 (07:56→16:40)
[2020-04-26] MEDS: Aspirin 81 MG TAB.CHEW PO (07:58)
[2020-04-26 08:11] LABS: Bedside Glucose 215 mg/dL (70-110)
[2020-04-26] MEDS: 0.9% Saline Lock 10 ML Syringe IV (08:45)
[2020-04-26] MEDS: Enoxaparin 100 MG/ML Syringe SC (08:45)
[2020-04-26] MEDS: Lisinopril 2.5 MG Tablet PO (08:45)
[2020-04-26] MEDS: Carvedilol 6.25 MG Tablet PO (08:45)
[2020-04-26] MEDS: Pantoprazole Sodium 40 MG Tablet PO (08:45)
[2020-04-26] MEDS: Clopidogrel Bisulfate 75 MG Tablet PO (08:45)
--- NOTE | 2020-04-26 11:27 | PN_ITS ---
Patient Problems: Active and Suspected Problems (Last Updated 04/22/20 @ 20:[address] Juan Claros MD) Respiratory distress (Acute) Elevated troponin (Acute) Acute hypoxemic respiratory failure (Acute) NSTEMI (non-ST elevated myocardial infarction) (Acute) CAD (coronary artery disease) (Acute) Sepsis (Acute) Acute on chronic combined systolic and diastolic CHF (congestive heart failure) (Acute) Hyperglycemia (Acute) Lactic acidosis (Acute) Reason for Visit: Patient is comfortable laying down. Lovenox and Lasix is resumed. Patient is accepted in [facility] for triple-vessel CABG but bed is not available. Physical exam General: Alert, Oriented x3, Cooperative HEENT: Atraumatic, PERRLA, EOMI, Normocephalic Oral: No Gingival or Mucosal Lesions/ Ulcerations Neck: Supple, No JVD, Negative Carotid Bruits Lungs: Air entry diminished in bilateral lung bases. No crepitation/rhonchi. No tachypnea, no hypoxia Cardiovascular: Regular rate, Regular Rhythm, Normal S1, Normal S2, ejection systolic murmur present over aortic area, pansystolic murmur over left lower sternal border and cardiac apex. Surgical scar over left calf and thigh suggestive of possible femoropopliteal bypass surgery. Abdomen: Bowel Sounds Present, Soft, Non Tender, Non-Distended : No renal angle tenderness. No suprapubic tenderness. Extremities: Right radial artery access site, no hematoma. No edema, Capillary Refill Less than 3 Seconds Skin: No rashes, No breakdown Musculoskeletal: No Tenderness to Palpation of Joints or Extremities Neurological: Cranial nerves II-XII grossly intact, Deep Tendon Reflexes 2+/4 and Symmetrical, Neuro grossly intact Psych/Mental Status: Normal Affect, Appropriate. Vitals/I&O's: Vital Signs Temp Pulse Resp BP Pulse Ox 98.0 F 84 20 H 159/70 H 98 04/26/20 08:45 04/26/20 08:45 04/26/20 08:45 04/26/20 08:45 04/26/20 08:45 Oxygen Flow Rate (L/min) 2 Oxygen Delivery Method Room Air Weight: 218 lb 7.649 oz Body Mass Index (BMI) 30.7 Finger Stick Blood Glucose 73 Intake and Output for Last 24 Hours 04/24/20 04/25/20 04/26/20 23:59 23:59 23:59 Intake Total 1620 / 1620 2303.75 / 2523.75 220 / 220 Output Total 2850 / 2850 2500 / 2750 550 / 550 Balance -1230 / -1230 -196.25 / -226.25 -330 / -330 Microbiology Past 72 Hours 04/23/20 16:20 Blood Culture (Wb) - Left Wrist Blood Culture - Preliminary No growth in 48 hours. 04/22/20 18:20 Blood Culture (Wb) - Anticubital Right Blood Culture - Preliminary No growth in 48 hours. 04/22/20 18:30 Blood Culture (Wb) - Anticubital Left Bacteria Detection (PCR) - Final Staphylococcus epidermidis 04/22/20 18:30 Blood Culture (Wb) - Anticubital Left Blood Culture - Preliminary Coag Negative Staph 04/23/20 09:50 Mucosa - Nose Respiratory Panel (PCR) - Final 04/23/20 10:25 Urine Catheter - Abreu Streptococcus pneumoniae Antigen (M - Final 04/23/20 08:01 Urine Catheter - Abreu Legionella Antigen - Final Laboratory Results 04/25/20 11:13: POC Glucose 226 H 04/25/20 17:58: POC Glucose 234 H 04/25/20 21:10: POC Glucose 298 H 04/26/20 06:18: Sodium 138, Potassium 3.8, Chloride 108 H, Carbon Dioxide 25.0, Anion Gap 5, BUN 18, Creatinine 0.72, Estim Creat Clear Calc 76.35, Est GFR (MDRD) Af Amer 139, Est GFR (MDRD) Non-Af 115, BUN/Creatinine Ratio 24.9 H, Glucose 198 H, Calcium 8.8 04/26/20 07:55: POC Glucose 215 H Current Medications Acetaminophen (Tylenol) 650 mg PO Q6H PRN PRN PRN Reason: Pain Score 1-10/Temp > 100.7 F Albuterol Sulfate (Ventolin Aerosols) 2.5 mg INHALATION Q2H PRN PRN PRN Reason: SOB/Wheezing Albuterol/Ipratropium (Duoneb) 3 ml INHALATION Q6H.RT [facility] Last Admin: 04/26/20 07:03 Dose: 3 ml Documented by: Aspirin (Aspirin, Baby) 81 mg PO DAILY@0800 [facility] Last Admin: 04/26/20 07:58 Dose: 81 mg Documented by: Atorvastatin Calcium (Lipitor) 80 mg PO QHS [facility] Last Admin: 04/25/20 21:12 Dose: 80 mg Documented by: Carvedilol (Coreg) 6.25 mg PO BID [facility] Last Admin: 04/26/20 08:45 Dose: 6.25 mg Documented by: Clopidogrel Bisulfate (Plavix) 75 mg PO DAILY [facility] Last Admin: 04/26/20 08:45 Dose: 75 mg Documented by: Enoxaparin Sodium (Lovenox) 100 mg SC Q12 [facility] Furosemide (Lasix) 40 mg IV Q12H [facility] Last Admin: 04/25/20 05:29 Dose: 40 mg Documented by: Sodium Chloride () 250 mls @ 15 mls/hr IV .[id number] PRN PRN Reason: Saline Flush Last Infusion: 04/23/20 16:29 Dose: 0 mls/hr Documented by: Sodium Chloride () 250 mls @ 15 mls/hr IV .[id number] PRN PRN Reason: Additional IVPB Infusion Sodium Chloride () 1,000 mls @ 0 mls/hr IV .Q0M [facility] Last Infusion: 04/25/20 12:04 Dose: Infused Documented by: Insulin Glargine (Lantus (Bk)) 25 units SC BID [facility] Last Admin: 04/26/20 08:45 Dose: 25 u Documented by: Insulin Human Lispro (Humalog Kwikpen (Bk)) 15 unit SC TIDAC [facility] Last Admin: 04/26/20 07:56 Dose: 15 u Documented by: Lisinopril (Zestril) 2.5 mg PO BID [facility] Last Admin: 04/26/20 08:45 Dose: 2.5 mg Documented by: Ondansetron HCl (Zofran) 4 mg IV Q8H PRN PRN PRN Reason: NAUSEA/VOMITING Pantoprazole Sodium (Protonix) 40 mg PO DAILY [facility] Last Admin: 04/26/20 08:45 Dose: 40 mg Documented by: Potassium Chloride (K-Dur) 40 meq PO DAILYCM [facility] Last Admin: 04/26/20 07:58 Dose: 40 meq Documented by: Senna/Docusate Sodium (Senokot-S, Donna-Colace) 2 tablet PO BID PRN PRN PRN Reason: Constipation Sodium Chloride () 10 - 40 ml IV UD PRN PRN Reason: SALINE FLUSH Last Admin: 04/26/20 08:45 Dose: 20 ml Documented by: Zolpidem Tartrate (Ambien (Generic)) 5 mg PO QHS [facility] Last Admin: 04/25/20 21:14 Dose: 5 mg Documented by: STROKE Vital Signs/Narrative: Vital Signs Temp Pulse Resp BP Pulse Ox 04/26/20 08:45 98.0 F 84 20 H 159/70 H 98 Medical Necessity - Tobacco Use Smoking Status: Current every day smoker Tobacco Use: Cigarettes Assessment/Plan All Active Problems (Last Updated 04/22/20 @ 20:[address] Juan Claros MD) Respiratory distress (Acute) Elevated troponin (Acute) Acute hypoxemic respiratory failure (Acute) NSTEMI (non-ST elevated myocardial infarction) (Acute) CAD (coronary artery disease) (Acute) Sepsis (Acute) Acute on chronic combined systolic and diastolic CHF (congestive heart failure) (Acute) Hyperglycemia (Acute) Lactic acidosis (Acute) This is a 69 years old male patient presented to the emergency room because of shortness of breath or chest pain, found to have acute on chronic combined diastolic and systolic CHF, non-ST elevation [place], lactic acidosis, acute kidney injury and hyperglycemia without evidence of DKA. #1 acute on chronic combined diastolic and systolic CHF: Patient is admitted in ICU. EKG shows sinus tachycardia 158/min with short routine worsened and ST depression in 1 and aVL suggestive of mild lateral ischemia although heart rotation ST-T changes from previous EKG of February 25, 2020 which showed sinus tachycardia at 145 beats minute. Patient was started on IV nitroglycerin drip which is discontinued now. Patient blood pressure and heart rate improved. 04/25: Patient had cardiac catheter today which shows triple-vessel coronary artery disease. Left main 25%, ostial LAD 60%, FFR 0.71, mid circumflex 70% stenosis, proximal RCA 100% stenosis. Distal RCA fills via collaterals and PDA fills via [id number] collaterals. Patient needs CABG. I talked to the [facility] respiratory therapy aide, Pay[place] and patient is accepted in [facility] but she is on waiting list. 04/26: As there is no bed available in [facility], [facility] transfer line called and talked to the business process coordinator. Transfer process is in progress. Lasix and Lovenox resumed. Discussed with the respiratory therapy aide Dr. Gee. He agrees for transfer to [facility]. Labs reviewed. Magnesium, potassium and phosphorus are in normal range. #2 non-ST elevation AZ due to acute on chronic systolic and diastolic heart failure with triple-vessel coronary artery disease: Patient predominant symptom was shortness of breath, VALADEZ progressed to dyspnea at rest. Troponin maxed at 28.6. BNP 895. Chest x-ray individually reviewed and shows interstitial edema. Patient had cardiac catheterization on Nov, 2019 that revealed EF of 35%, mild irregularities of the left main artery with less than 30% stenosis, diffusely diseased left circumflex up to 40 % stenosis, diffusely diseased LAD up to 50%, proximal RCA is occluded. At that time, no interventions were performed and medical treatment continued. 2D echo on February,, revealed ejection fraction 45%, stage II diastolic dysfunction, mild to moderate left ear, mild MR and pulmonary artery pressure is 45 consistent with mild pulmonary hypertension. continue aspirin, Coreg, Plavix, lisinopril low-dose continue Coumadin and therapeutic bridging Lovenox. 2D echo on 04/23 interpretation Summary Moderate segmental systolic dysfunction (see wall motion). The estimated ejection fraction is 35 %. The left atrium is mildly enlarged. There is mild mitral annular calcification. Mild diffuse mitral valve thickening. Mild (1+) mitral valve insufficiency. Mild tricuspid valve insufficiency. Moderate aortic stenosis. Trivial aortic valve insufficiency. Right ventricular systolic pressure estimated to be 37 mmHg. Transmitral diastolic flow velocities suggest diastolic dysfunction (pseudonormal pattern). #3 lactic acidosis with no evidence of infection/sepsis: This is likely due to tissue hypoxemia. Patient denies fever at home and afebrile in the hospital. Leukocytosis resolved. Patient had nonspecific cough and sputum that may be from interstitial edema. Blood culture initially shows coagulase-negative staph, staph epidermidis. Empirically patient was put initially on vancomycin and Zosyn which was discontinued on 04/24. Repeat blood culture is negative for more than 48 hours. Discussed with ID. Infection/sepsis ruled out. #4 acute kidney injury most likely secondary to acute on chronic heart failure: Resolved. Admitting BUN/creatinine 1.47, most recent 04/08.09. Monitor kidney function and electrolytes. #5 hyperglycemia: Without evidence of DKA. Blood glucose is 473. Serum bicarb and anion gap are normal. ABG revealed normal pH, 7.3 740/87 on 80% FiO2 20/14. BiPAP during naps and rescue. Plan: Accu-Cheks every 4 hours, insulin sliding scale, continue Lantus twice daily as well as pre-meal Humalog. Hemoglobin A1c was 13.3% on June,. A1c recent 9.7 on 04/22. #6 CAD: Without prior history of cardiac interventions. #7 type 2 diabetes mellitus: Uncontrolled. Plan as above, will check hemoglobin A1c again. #8 chronic systolic CHF/ischemic cardiomyopathy: He is in acute on chronic CHF as mentioned above. Plan as above. #9 COPD: Currently, on BiPAP. ABG reviewed as above. Plan for bronchodilators, continue BiPAP. #10 hypertension: Initially, blood pressure was elevated but improved with IV nitroglycerin drip. Plan to continue Coreg, IV Lasix. #11 peripheral vascular disease: Stable, continue aspirin and statins as well as Plavix. 8 seems patient has left femoropopliteal bypass surgery based on the site of surgical scar although no surgical details available. #12 CODE STATUS: When I asked the patient about the CODE STATUS, he said he is not sure at this time. I requested the patient to think about his CODE STATUS and what we should do in case of cardiorespiratory arrest. #13 DVT prophylaxis: INR is 1.8, at this activity, continue Coumadin, continue Lovenox for bridging. Total time of the visit including total time spent in counseling or coordination of care, (more than 50% of the total time, spent in obtaining medical information from nurses and other ancillary care providers), discussion with programmer analyst consultant and [facility] site coordinator and respiratory therapy aide, Dr Avery, review of labs and imaging is 30 minutes. Clinical Impression(s) from Imaging Studies Chest X-Ray 04/22/20 18:13 IMPRESSION: Moderate interstitial edema Inpatient E&M: 79028 Subs Hosp L2
[2020-04-26 11:40] LABS: Bedside Glucose 281 mg/dL (70-110)
--- NOTE | 2020-04-26 17:12 | NURSING ---
Called report to [facility] to Sarah HOPE
[2020-04-26 17:30] LABS: Bedside Glucose 323 mg/dL (70-110)
== END 2020-04-26 19:45 | disposition short-term general hospital (02) ==
LOC: ED 19:59 → ICU 04-23 00:02 → PCU 04-24 11:19
PROVIDERS: Internal Medicine Cardiovascular Disease; Admitting Provider Hospitalist; Emergency Provider Emergency Medicine; PCP Family Medicine Geriatric Medicine; Visit Provider Internal Medicine
CPT/HCPCS: 36415; 36600; 71045; 71046; 80048; 82803; 82962; 83036; 83605; 83735; 83880; 84100; 84145; 84484; 85025; 85610; 87040; 87149; 87449; 87633; 87635; 93005; 93306; 93454; 93571; 94002; 94003; 94640; 97116; 97162; 97166; 97530; 97535; 97803; 99152; 99153; 99285; 99406; J0153; J7030; J7040; J7050; Q9957; Q9967; A4216; C1769; C1887; C1894; C8929; J1940; U0003

== ENCOUNTER → 2020-06-02 10:16 | Outpatient (CLI) | payer MEDICARE, SELFPAY ==
[2020-04-22 21:46] VITALS: BMI 30.7
[2020-06-02 12:06] LABS: Basophil# 0.07 X10^3/uL; Basophil% 0.8 % (0-1); Eosinophil# 0.08 X10^3/uL; Eosinophils% 0.9 % (0-5); Hematocrit 36.4 % (40-54); Hemoglobin 10.6 g/dL (13.0-16.5); Lymphocyte % 20.1 % (19-41); Mean Corp Hgb Conc 29.1 g/dL (32-36); Mean Corpuscular Hgb 25.3 pg (27.0-32.0); Mean Corpuscular Volume 86.9 fL (80-94); Mean Platelet Vol. 9.8 fl (6.2-12.0); Monocyte# 0.55 X10^3/uL; Monocyte% 6.5 % (0-10); NRBC Flagged by Analyzer 0 % (0-5); Neutrophil # 5.96 X10^3/uL (2.7-7.7); Neutrophil % 70.8 % (47-70); Platelet Count 363 K/mm3 (150-450); RBC Distribution Width CV 15.2 % (11.6-14.6); RBC Distribution Width SD 48.7 fl (35.1-43.9); Red Blood Count 4.19 M/mm3 (4.6-6.2); White Blood Count 8.4 K/mm3 (4.4-11.0)
[2020-06-02 12:24] LABS: Vitamin D,25 Hydroxy 18.6 ng/mL
[2020-06-02 12:35] LABS: ALB/GLOB Ratio 0.9 RATIO (0.9-2.4); AST(SGOT) 16 U/L (15-37); Alanine Aminotransfer ALT/SGPT 24 U/L (16-61); Albumin, Serum 3.7 g/dL (3.2-5.0); Alkaline Phosphatase 132 U/L (45-117); Anion Gap 10 (5-15); BUN 16 mg/dL (7-18); BUN/Creat Ratio 17.2 RATIO (10-20); Calcium,Total 9.1 mg/dL (8.5-10.1); Chloride 102 mmol/L (98-107); Cholesterol 138 mg/dL (200); Creatinine, Serum 0.93 mg/dL (0.70-1.30); EST Glomerular Filtration Rate 86 mL/min (>60); Est Glom Filt Rate - Afr Amer 104 mL/min (>60); Globulin 4.2 g/dL (2.2-4.2); Glucose 219 mg/dL (74-106); High Density Lipoprotein 41 mg/dL; PSA,Total - Annual Screen 0.55 ng/mL (0.00-4.00); Potassium 3.2 mmol/L (3.5-5.1); Protein, Total 7.9 g/dL (6.4-8.2); Sodium Level 139 mmol/L (136-145); Thyroid Stim Hormone (TSH) 0.67 uIU/mL (0.358-3.74); Triglycerides 193 mg/dL; Very Low Density Lipoprotein 39 mg/dL (5-40)
== END ==
PROVIDERS: PCP Family Medicine Geriatric Medicine; Visit Provider Family Medicine Geriatric Medicine
DX: E11.9 Type 2 diabetes mellitus without complications (principal); E55.9 Vitamin D deficiency, unspecified; E78.5 Hyperlipidemia, unspecified; F52.8 Other sexual dysfunction not due to a substance or known physiological condition; I10 Essential (primary) hypertension; Z12.5 Encounter for screening for malignant neoplasm of prostate
CPT/HCPCS: 36415; 80053; 80061; 82306; 84153; 84403; 84443; 85025; G0103

== ENCOUNTER → 2020-09-01 10:58 | Outpatient (CLI) | payer MEDICARE, SELFPAY ==
[2020-06-30 08:32] VITALS: BMI 29.8
[2020-09-01 12:37] LABS: Absolute Lymphocyte Count 2.44 X10^3/uL (0.83-4.51); Basophil# 0.03 X10^3/uL; Basophil% 0.4 % (0-1); Eosinophils% 1.2 % (0-5); Lymphocyte # 2.44 X10^3/ul (4.0); Lymphocyte % 29.3 % (19-41); Mean Corp Hgb Conc 29.4 g/dL (32-36); Mean Corpuscular Hgb 22.8 pg (27.0-32.0); Mean Corpuscular Volume 77.4 fL (80-94); Monocyte# 0.71 X10^3/uL; Monocyte% 8.5 % (0-10); NRBC Flagged by Analyzer 0 % (0-5); Neutrophil % 60.1 % (47-70); Platelet Count 345 K/mm3 (150-450); RBC Distribution Width CV 16.6 % (11.6-14.6); RBC Distribution Width SD 47.1 fl (35.1-43.9); Red Blood Count 4.39 M/mm3 (4.6-6.2); White Blood Count 8.3 K/mm3 (4.4-11.0)
[2020-09-01 13:03] LABS: Vitamin D,25 Hydroxy 30.2 ng/mL
[2020-09-01 13:13] LABS: ALB/GLOB Ratio 0.7 RATIO (0.9-2.4); AST(SGOT) 19 U/L (15-37); Alanine Aminotransfer ALT/SGPT 25 U/L (16-61); Albumin, Serum 3.1 g/dL (3.2-5.0); Alkaline Phosphatase 123 U/L (45-117); Anion Gap 7 (5-15); BUN 14 mg/dL (7-18); BUN/Creat Ratio 11.7 RATIO (10-20); Calcium,Total 9.3 mg/dL (8.5-10.1); Chloride 106 mmol/L (98-107); Cholesterol 113 mg/dL (200); EST Glomerular Filtration Rate 64 mL/min (>60); Est Glom Filt Rate - Afr Amer 78 mL/min (>60); Globulin 4.5 g/dL (2.2-4.2); Glucose 171 mg/dL (74-106); High Density Lipoprotein 34 mg/dL; Potassium 3.4 mmol/L (3.5-5.1); Protein, Total 7.6 g/dL (6.4-8.2); Sodium Level 136 mmol/L (136-145); Thyroid Stim Hormone (TSH) 0.51 uIU/mL (0.358-3.74); Triglycerides 159 mg/dL; Very Low Density Lipoprotein 32 mg/dL (5-40)
== END ==
LOC: LAB 11:01
PROVIDERS: PCP Family Medicine Geriatric Medicine; Referring Provider Family Medicine Geriatric Medicine; Visit Provider Family Medicine Geriatric Medicine
DX: E11.9 Type 2 diabetes mellitus without complications (principal); E55.9 Vitamin D deficiency, unspecified; E78.5 Hyperlipidemia, unspecified; F52.8 Other sexual dysfunction not due to a substance or known physiological condition; I10 Essential (primary) hypertension
CPT/HCPCS: 36415; 80053; 80061; 82306; 84403; 84443; 85025

== ENCOUNTER 2020-09-21 10:15 | Emergency (ER) | payer MEDICARE, SELFPAY ==
[2020-06-30 08:32] VITALS: BMI 29.8
[2020-09-21 10:17] VITALS: BP 101/62; PULSE 103; RESP 18; TEMP 36.7; O2SAT 100; BMI 30.7
--- NOTE | 2020-09-21 10:37 | CT_ITS ---
STUDY: CT CHEST WITH CONTRAST REASON FOR EXAM: Male, 69 years old. wound infection -- CABG wound dehiscence and infection RADIATION DOSAGE (If Supplied By Facility): CTDIvol = ( 16.13 ) mGy, DLP = ( 708.14 ) mGycm TECHNIQUE: Transaxial imaging was performed following intravenous administration of IV 100mL Isovue-300. Individualized dose optimization techniques were used for this CT. COMPARISON: None. FINDINGS: Abnormal appearance of the median sternotomy. No evidence of healing of the bone surfaces. Irregularities of the margins could represent osteomyelitis. Soft tissue defect superficial to the sternotomy extending almost directly to the bone surface. Induration of the soft tissues overlying the sternotomy consistent with edema/cellulitis No definite focal fluid collection or abscess. Increased soft tissue density and thickening of the retrosternal soft tissues along the anterior mediastinum, with a few small foci of air. These findings also suggest infection but again, no definite focal fluid collection or abscess seen. Normal lung volumes. No focal infiltrates. There is a 5 mm nodule in the right middle lobe, axial image 71, stable since previous study. There is a 5 mm fissure based nodule in the right lower lobe, axial image 76, stable. There is a 5 mm nodule in the lateral right lung base, axial image 81, stable. No effusions. Normal heart and pericardium. There has been CABG. There has been replacement of aortic valve. Normal mediastinum. Normal hilar regions. Normal enhanced pulmonary arteries. Normal aorta arch and descending thoracic aorta. There are multi-level degenerative changes of the thoracic spine. There is no demonstrated abnormality of the visualized upper abdomen. CT/Chest WITH Contrast IMPRESSION: Confirmation of median sternotomy and possible infectious changes but without definite abscess. Osteomyelitis not excluded. Several right-sided pulmonary nodules are stable. Suggest follow-up in 1 year. Electronically Signed: Samuel Christina MD at 12:27 EST , Service support ,
--- NOTE | 2020-09-21 10:37 | EKG12_ITS ---
Test Reason : WOUND CHECK Blood Pressure : / mmHG Vent. Rate : 092 BPM Atrial Rate : 092 BPM P-R Int : 168 ms QRS Dur : 080 ms QT Int : 360 ms P-R-T Axes : 049 012 030 degrees QTc Int : 445 ms Normal sinus rhythm Inferior infarct , age undetermined Abnormal ECG Confirmed by YEFRI CHAPA, YVETTE ([id number]), assistant film editor STANISLAV OVIEDO ([id number]) on 09/24/2020 10:48:13 AM Referred By: KEVIN Confirmed By:YVETTE ASIF MD
--- NOTE | 2020-09-21 10:39 | ED.VIS.GEN ---
History of Present Illness Chief Complaint: Wound Check Informant: Patient Onset: Weeks Current Severity: Moderate Maximum Severity: Moderate Narrative: Patient presents secondary to wound opening and drainage from his prior CABG. Patient had CABG performed on May 01, 2020 at [facility]. Follow-up cardiology note from mid June documents that the wound is well-healed. Patient states of the past several weeks he has noted the wound starting to open up with some mild drainage. This morning he had significantly more drainage from the wounds. He denies fever or chills. - Past Medical History (1) Atherosclerosis of coronary artery without angina pectoris Status: Chronic (2) COPD (chronic obstructive pulmonary disease) Status: Chronic (3) Chronic combined systolic and diastolic CHF (congestive heart failure) Status: Chronic (4) Essential (primary) hypertension Status: Chronic (5) Hyperlipidemia Status: Chronic (6) Ischemic cardiomyopathy Status: Chronic (7) jail current use of 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 Status: Chronic (8) Peripheral vascular occlusive disease Status: Chronic Comment: H/O Bilateral fem-pop bypass 2008 (9) Secondary pulmonary arterial hypertension Status: Chronic (10) Type 2 diabetes mellitus Status: Chronic (11) H/O coronary artery bypass surgery Status: Resolved Comment: CABG x 2 : WAITE-LAD, Free BRYAN Y graft off WAITE-OM1 05/01/2020 (12) History of mechanical aortic valve replacement Status: Resolved Comment: AVR / [address] Bruce Mechanical Valve 05/01/2020 (13) History of non-ST elevation myocardial infarction (NSTEMI) Status: Resolved Comment: 02/25/2020, 04/23/2020 Past Medical History - Allergies and Home Meds Allergies/Adverse Reactions: Allergies No Known Allergies Allergy (Verified 09/21/20 10:51) Primary Care Physician: Saurabh Hernandez Chi, MD [Primary Care Provider] - Prior records reviewed: Yes Surgical History: - - Lumbar laminectomy and fusion x 2, LLE surgery for clot retrieval with follow-up I&D x2 for infection, recent right great toe surgery as well as follow-up balloon angioplasties per vascular surgery during recent admission. Smoking Status: Current every day smoker - Family History Paternal Family History: Family History (Last Updated 05/31/20 @ 09:54 by Che Lee) Mother Diabetes Heart disease Father Diabetes Family History: Reports: Diabetes Maternal Family History: Family History (Last Updated 05/31/20 @ 09:54 by Che Lee) Mother Diabetes Heart disease Father Diabetes Family History: Reports: Diabetes, Heart Disease, Hypertension, - - History of brain aneurysms. Review of Systems General: Denies: Chills, Fever Eyes: Denies: Visual changes - bilaterally ENT: Denies: Bilateral ear pain Cardiovascular: Denies: Chest pain Respiratory: Denies: Dyspnea, Cough Gastrointestinal: Denies: Abdominal pain, Nausea, Vomiting Musculoskeletal: Denies: Swelling, Extremity Pain Skin: Reports: Wounds Neurological: Denies: Headache Hematologic: Denies: Easy bruising, Easy bleeding Allergy: Denies: Uticaria Physical Exam Vital Signs/Narrative: Vital Signs Temp Pulse Resp BP Pulse Ox 09/21/20 10:17 98.0 F 103 H 18 101/62 100 Inital Vital Signs reviewed: Yes General: Well nourished, Well developed Head: Normocephalic Neck: Supple Cardiovascular: Regular rate, Regular rhythm Respiratory: No distress, CTA bilaterally, - - Superior and inferior aspects of the mid chest surgical scar are opened. The superior wound is measuring 3 x 2 cm with yellow granulation tissue and yellow pus. The inferior aspect of the wound has 2 small openings both draining yellow pus. Abdomen: Soft, Nontender Extremities: Nontender, No edema Skin: - - Chest wound as noted above Neurological: Alert, Oriented x3 Psychological: Normal affect Diagnostic/Tx/Re-eval Impressions Chest CT 09/21/20 10:37 IMPRESSION: Confirmation of median sternotomy and possible infectious changes but without definite abscess. Osteomyelitis not excluded. Several right-sided pulmonary nodules are stable. Suggest follow-up in 1 year. Electronically Signed: Samuel Christina MD at 12:27 EST , Service support , 09/21/20 10:37 CT Chest [Chest WITH Contrast] [CT] Stat Laboratory Results 09/21/20 09/21/20 09/21/20 11:03 11:03 11:03 WBC 7.6 RBC 4.23 L Hgb 9.9 L Hct 32.8 L MCV 77.5 L MCH 23.4 L MCHC 30.2 L RDW Std Deviation 51.8 H RDW Coeff of Estrada 18.6 H Plt Count 308 MPV 9.4 Immature Gran % (Auto) 0.400 Neut % (Auto) 62.6 Lymph % (Auto) 23.9 Dawes % (Auto) 11.8 H Eos % (Auto) 0.9 Baso % (Auto) 0.4 Absolute Neuts (auto) 4.8 Absolute Lymphs (auto) 1.82 Nucleated RBC % 0 PT 21.7 H INR 1.9 Sodium 135 L Potassium 3.3 L Chloride 100 Carbon Dioxide 27.0 Anion Gap 8 BUN 8 Creatinine 0.82 Estim Creat Clear Calc 93.10 Est GFR (MDRD) Af Amer 120 Est GFR (MDRD) Non-Af 100 BUN/Creatinine Ratio 9.8 L Glucose 184 H Lactic Acid Calcium 8.7 09/21/20 11:03 WBC RBC Hgb Hct MCV MCH MCHC RDW Std Deviation RDW Coeff of Estrada Plt Count MPV Immature Gran % (Auto) Neut % (Auto) Lymph % (Auto) Dawes % (Auto) Eos % (Auto) Baso % (Auto) Absolute Neuts (auto) Absolute Lymphs (auto) Nucleated RBC % PT INR Sodium Potassium Chloride Carbon Dioxide Anion Gap BUN Creatinine Estim Creat Clear Calc Est GFR (MDRD) Af Amer Est GFR (MDRD) Non-Af BUN/Creatinine Ratio Glucose Lactic Acid 1.6 Calcium - EKG Initial EKG Interpretation: Sinus Rhythm - Sinus at 92 with no acute ischemia. - Medical Decision Making Patient was given IV fluids here. Vital signs been stable. White count is normal. Lactic acid is normal. CT scan does reveal infectious changes over the sternotomy site but no definite abscess. Cannot rule out osteomyelitis. I spoke with cardiology here. They feel the patient should be evaluated by his cardiothoracic surgeon. They suspect patient does likely have osteomyelitis given that the surgical wound is from April. Patient is given Zosyn and vancomycin. Plan will be transfer to [facility] for evaluation by his surgeon. ED Disposition - Plan for ED Patient: Disposition: [facility] Diagnosis: Postoperative wound dehiscence, Wound infection Referrals: Saurabh Hernandez Chi, MD [Primary Care Provider] -
[2020-09-21 10:59] VITALS: BP 101/62; PULSE 92; RESP 20; TEMP 36.7; O2SAT 100
[2020-09-21 11:14] LABS: Absolute Lymphocyte Count 1.82 X10^3/uL (0.83-4.51); Absolute Neutrophil Count 4.8 X10^3/uL (2.0-7.7); Basophil# 0.03 X10^3/uL; Basophil% 0.4 % (0-1); Eosinophil# 0.07 X10^3/uL; Eosinophils% 0.9 % (0-5); Hematocrit 32.8 % (40-54); Hemoglobin 9.9 g/dL (13.0-16.5); Lymphocyte # 1.82 X10^3/ul (4.0); Lymphocyte % 23.9 % (19-41); Mean Corp Hgb Conc 30.2 g/dL (32-36); Mean Corpuscular Hgb 23.4 pg (27.0-32.0); Mean Corpuscular Volume 77.5 fL (80-94); Mean Platelet Vol. 9.4 fl (6.2-12.0); Monocyte% 11.8 % (0-10); NRBC Flagged by Analyzer 0 % (0-5); Neutrophil # 4.76 X10^3/uL (2.7-7.7); Neutrophil % 62.6 % (47-70); Platelet Count 308 K/mm3 (150-450); RBC Distribution Width CV 18.6 % (11.6-14.6); RBC Distribution Width SD 51.8 fl (35.1-43.9); Red Blood Count 4.23 M/mm3 (4.6-6.2); White Blood Count 7.6 K/mm3 (4.4-11.0)
[2020-09-21 11:25] LABS: International Normalized Ratio 1.9; Prothrombin Time (Protime)PT. 21.7 SECONDS (11.7-14.9)
[2020-09-21 11:27] LABS: Anion Gap 8 (5-15); BUN 8 mg/dL (7-18); BUN/Creat Ratio 9.8 RATIO (10-20); Calcium,Total 8.7 mg/dL (8.5-10.1); Chloride 100 mmol/L (98-107); Creatinine, Serum 0.82 mg/dL (0.70-1.30); EST Glomerular Filtration Rate 100 mL/min (>60); Est Glom Filt Rate - Afr Amer 120 mL/min (>60); Glucose 184 mg/dL (74-106); Potassium 3.3 mmol/L (3.5-5.1); Sodium Level 135 mmol/L (136-145)
[2020-09-21 11:41] LABS: Lactic Acid 1.6 mmol/L (0.4-1.9)
[2020-09-21 12:00] VITALS: BP 109/68; PULSE 87; RESP 18; TEMP 36.9; O2SAT 97
[2020-09-21 13:10] VITALS: BP 117/73; PULSE 84; RESP 16; TEMP 36.7; O2SAT 98
--- NOTE | 2020-09-21 13:40 | ED.RN ---
per dr. nelson sepsis screen complete.
[2020-09-21 14:09] VITALS: BP 119/64; PULSE 90; RESP 20; TEMP 36.7; O2SAT 98
[2020-09-21 14:11] VITALS: BP 119/64; PULSE 91; RESP 20; O2SAT 98
== END 2020-09-21 14:37 | disposition short-term general hospital (02) ==
PROVIDERS: Emergency Provider Emergency Medicine; PCP Family Medicine Geriatric Medicine
DX: T81.31XA Disruption of external operation (surgical) wound, not elsewhere classified, initial encounter (principal); T81.49XA Infection following a procedure, other surgical site, initial encounter; F17.200 Nicotine dependence, unspecified, uncomplicated; I25.10 Atherosclerotic heart disease of native coronary artery without angina pectoris; E11.9 Type 2 diabetes mellitus without complications; I11.0 Hypertensive heart disease with heart failure; I50.42 Chronic combined systolic (congestive) and diastolic (congestive) heart failure; Z95.2 Presence of prosthetic heart valve; Z95.1 Presence of aortocoronary bypass graft; Z79.01 Long term (current) use of 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s
CPT/HCPCS: 36415; 71260; 80048; 83605; 85025; 85610; 87040; 87070; 87075; 87077; 87186; 87205; 87426; 93005; 96365; 96367; 99285; J7040; J7050; Q9967; A4216

== ENCOUNTER 2020-11-12 09:12 | Emergency (ER) | payer MEDICARE, SELFPAY ==
[2020-11-12 09:13] VITALS: BP 123/65; PULSE 108; RESP 30; TEMP 36.8; O2SAT 97; BMI 29.4
[2020-11-12 09:17] VITALS: BP 123/65; PULSE 109; RESP 20; TEMP 36.8; O2SAT 97
--- NOTE | 2020-11-12 09:57 | EX.ED.DYSGE1 ---
HPI History of Present Illness Chief Complaint: Wound Informant: patient Onset/Context/Timing Onset: Today Location: Chest Worsened by: Suction from the wound VAC Narrative Narrative: Patient presents for a wound check. Patient states that he was tossing and turning in his sleep last night and accidentally pulled his wound VAC off and his PICC line out. Patient states he takes Invanz 1 g daily for his wound infection. Patient states he saw his plastic surgeon recently who stated that the wound was healing well and may not require any surgery. Patient denies any discharge or drainage. Patient denies any fevers or chills. Patient denies any nausea or vomiting. [facility] Medical History Acute on chronic combined systolic and diastolic CHF (congestive heart failure) Atherosclerosis of coronary artery without angina pectoris Back problem Bleeding disorder Chronic combined systolic and diastolic CHF (congestive heart failure) COPD (chronic obstructive pulmonary disease) Diabetic foot infection DVT (deep venous thrombosis) Erectile dysfunction Essential (primary) hypertension Gangrene of toe GERD (gastroesophageal reflux disease) History of non-ST elevation myocardial infarction (NSTEMI) (04/23/20) Hyperglycemia Hyperlipidemia Ischemic cardiomyopathy Lumbar spinal stenosis MSSA (methicillin susceptible Staphylococcus aureus) infection Nicotine dependence Non-healing surgical wound (05/01/20) Nonrheumatic aortic (valve) stenosis 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 Obstructive sleep apnea Osteomyelitis Peripheral vascular occlusive disease Pulmonary edema Respiratory distress Scabies infestation Secondary pulmonary arterial hypertension Sepsis (04/23/20) Thrombocytopenia Type 2 diabetes mellitus 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 foot with fat layer exposed Ulcer of right foot with necrosis of bone Home Medications clopidogrel 75 mg tablet 75 mg PO DAILY #90 tab 03/19/20 [Rx Last Taken Unknown] furosemide 40 mg tablet 40 mg PO BID@1000,1800 #180 tab 03/19/20 [Rx Last Taken Unknown] lisinopril 5 mg tablet 5 mg PO DAILY 05/31/20 [History Last Taken Unknown] metformin 500 mg tablet 500 mg PO BID 05/31/20 [History Last Taken Unknown] metoprolol succinate 50 mg tablet,extended release 24 hr 50 mg PO DAILY 05/31/20 [History Last Taken Unknown] pantoprazole 40 mg tablet,delayed release 40 mg PO DAILY 05/31/20 [History Last Taken Unknown] sennosides 8.6 mg-docusate sodium 50 mg capsule 1 tab-cap PO BID cap 05/31/20 [History Last Taken Unknown] sitagliptin 100 mg tablet 100 mg PO DAILY 05/31/20 [History Last Taken Unknown] insulin aspart U-100 100 unit/mL subcutaneous solution 20 unit SC TID 06/30/20 [History Last Taken Unknown] polyethylene glycol 3350 17 gram/dose oral powder 17 g PO DAILY 06/30/20 [History Last Taken Unknown] tramadol 50 mg tablet 50 mg PO DAILY 06/30/20 [History Last Taken Unknown] atorvastatin 40 mg PO DAILY 11/12/20 [History Last Taken Unknown] gabapentin 1,200 mg PO BID 11/12/20 [History Last Taken Unknown] insulin glargine [Lantus Solostar U-100 Insulin] 35 unit SUBCUT DAILY 11/12/20 [History Last Taken Unknown] lidocaine 1 patch TOPICAL DAILY PRN 11/12/20 [History Last Taken Unknown] warfarin 1.5 mg PO DAILY 11/12/20 [History Last Taken Unknown] warfarin 3 mg PO DAILY 11/12/20 [History Last Taken Unknown] zolpidem [Ambien] 10 mg PO DAILY 11/12/20 [History Last Taken Unknown] Allergy/AdvReac Type Severity Reaction Status Date / Time No Known Allergies Allergy Verified 09/21/20 10:51 Family History Mother Diabetes Heart disease Father Diabetes Surgical History H/O coronary artery bypass surgery (05/01/20) History of angioplasty of peripheral vessel (01/02/10) History of femoropopliteal bypass (2008) History of incision and drainage (09/22/20) History of left heart catheterization (04/23/20) History of lumbar laminectomy History of mechanical aortic valve replacement Social History Smoking Status: Former smoker alcohol intake: never substance use type: does not use caffeine: No ROS ROS ED Constitutional Constitutional ED: Denies chills or fever(s) Eyes Eyes: Denies blurry vision or change in vision ENT ENT ED: Denies rhinorrhea or sore throat Cardiovascular Cardiovascular: Denies chest pain or palpitations Respiratory/Chest Respiratory/Chest: Denies cough or dyspnea Gastrointestinal Gastrointestinal: Denies nausea or vomiting Genitourinary Genitourinary ED: Denies dysuria or hematuria Musculoskeletal Musculoskeletal: Denies back pain or neck pain Integumentary Denies abscess or rash Neurologic Neurologic: Denies headache(s) or weakness Allergic/Immunologic Allergic/Immunologic ED: Denies mouth swelling or urticaria EXAM Physical Exam Const Vital Signs: 11/12/20 09:13 11/12/20 09:17 11/12/20 11:16 Temperature 98.3 F 98.3 F 98.8 F Temperature Source Oral Oral Temporal Pulse Rate 108 H 109 H 110 H Respiratory Rate 30 H 20 H 28 H Blood Pressure 123/65 H 123/65 H 121/73 H Blood Pressure Mean 84 84 89 Pulse Ox 97 97 98 Oxygen Delivery Method Room Air Room Air Room Air 11/12/20 14:05 Temperature 98.6 F Temperature Source Temporal Pulse Rate 105 H Respiratory Rate 20 H Blood Pressure 118/71 Blood Pressure Mean 86 Pulse Ox 96 Oxygen Delivery Method Room Air Positive well nourished and well developed General Appearance ED: well developed HEENT Reports moist mucous membranes Neck supple and no JVD Chest Wall palpation of chest normal Chest Narrative: There is a wound VAC in place with an opening in the central area of the dressing. There is no surrounding erythema. There is no discharge or drainage. Resp normal respiratory effort and clear to auscultation bilaterally Cardio regular rhythm Rate: tachycardic GI normal to inspection, nondistended, normoactive bowel sounds and non-tender Palpation: soft Neuro oriented x3, CN's II-XII intact bilaterally and no sensory deficits noted Sensorium / Orientation: alert Motor Exam: strength 5/5 throughout MDM MDM MDM Narrative Medical decision making narrative: Wound care was consulted. The wound care nurse came in and removed the wound VAC dressing. The wound had a large amount of purulent drainage in the wound. At that time, wound cultures were obtained and basic sepsis labs were initiated. CBC and comprehensive metabolic profile were obtained and were essentially within normal limits. Lactate was normal. PTT was slightly elevated at 40.4. INR was 1.5. COVID-19 rapid antigen was obtained and was negative. Portable 1 view chest x-ray was obtained. On my interpretation, lung brown are clear. There is normal cardiac silhouette. Bony thorax is normal. There is no acute process noted. Radiologist also interpreted the x-ray and agrees. Case was discussed with Dr. Wells from [facility]. He accepted transfer the patient. Patient will be transferred there for further evaluation of his chest wound. Patient understood and was agreeable with the plan. All questions were answered. Lab Data Attestation: I reviewed the patient's lab results. Labs: Laboratory Results - last 24 hr 11/12/20 11/12/20 11/12/20 10:25 10:25 10:25 WBC 10.3 RBC 3.88 L Hgb 9.5 L Hct 30.8 L MCV 79.4 L MCH 24.5 L MCHC 30.8 L RDW Std Deviation 47.8 H RDW Coeff of Estrada 16.6 H Plt Count 355 MPV 9.9 Immature Gran % (Auto) 0.300 Neut % (Auto) 75.6 H Lymph % (Auto) 12.2 L [place] % (Auto) 11.4 H Eos % (Auto) 0.1 Baso % (Auto) 0.4 Absolute Neuts (auto) 7.8 H Absolute Lymphs (auto) 1.25 Nucleated RBC % 0 PT 17.3 H INR 1.5 APTT 40.4 H Sodium 134 L Potassium 4.0 Chloride 102 Carbon Dioxide 24.0 Anion Gap 8 BUN 14 Creatinine 0.87 Estim Creat Clear Calc 87.75 Est GFR (MDRD) Af Amer 113 Est GFR (MDRD) Non-Af 93 BUN/Creatinine Ratio 16.1 Glucose 202 H Lactic Acid Calcium 9.2 Total Bilirubin 0.70 AST 11 L ALT 18 Alkaline Phosphatase 126 H Total Protein 8.0 Albumin 3.4 Globulin 4.6 H Albumin/Globulin Ratio 0.7 L 11/12/20 11:08 WBC RBC Hgb Hct MCV MCH MCHC RDW Std Deviation RDW Coeff of Estrada Plt Count MPV Immature Gran % (Auto) Neut % (Auto) Lymph % (Auto) [place] % (Auto) Eos % (Auto) Baso % (Auto) Absolute Neuts (auto) Absolute Lymphs (auto) Nucleated RBC % PT INR APTT Sodium Potassium Chloride Carbon Dioxide Anion Gap BUN Creatinine Estim Creat Clear Calc Est GFR (MDRD) Af Amer Est GFR (MDRD) Non-Af BUN/Creatinine Ratio Glucose Lactic Acid 1.4 Calcium Total Bilirubin AST ALT Alkaline Phosphatase Total Protein Albumin Globulin Albumin/Globulin Ratio Radiography Chest X-Ray - ED: 1 View, Read by ED Physician, Read by Radiologist and No Acute Disease Diagnostic Testing: Radiology Impression Chest X-Ray 11/12/20 11:20 IMPRESSION: No acute abnormality is seen. Electronically Signed: Lázaro Archer MD at 12:03 EDT , Service support , EKG Initial EKG: Interpretation: No Acute Injury Pattern and Sinus Tachycardia Prior EKG tracings: available for review Prior: Unchanged Discharge Plan Triage Chief Complaint: Wound ED Provider: Kendrick Mulligan Dx/Rx/DC Orders Clinical Impression: Open wound of chest wall with complication Prescriptions: No Action clopidogrel 75 mg tablet 75 mg PO DAILY Qty: 90 RF: 3 furosemide 40 mg tablet 40 mg PO BID@1000,1800 Qty: 180 RF: 3 metoprolol succinate [Toprol XL] 50 mg tablet extended release 24 hr 50 mg PO DAILY RF: 0 metformin 500 mg tablet 500 mg PO BID RF: 0 Januvia 100 mg tablet 100 mg PO DAILY RF: 0 lisinopril 5 mg tablet 5 mg PO DAILY RF: 0 Senna Plus 8.6-50 mg capsule 1 tab-cap PO BID RF: 0 pantoprazole 40 mg tablet,delayed release (DR/EC) 40 mg PO DAILY RF: 0 tramadol 50 mg tablet 50 mg PO DAILY RF: 0 polyethylene glycol 3350 [Miralax] 17 gram/dose powder 17 g PO DAILY RF: 0 insulin aspart U-100 [Novolog U-100 Insulin aspart] 100 unit/mL solution 20 unit SC TID RF: 0 atorvastatin 40 mg Tablet 40 mg PO DAILY RF: 0 gabapentin 600 mg Tablet 1,200 mg PO BID RF: 0 lidocaine 4 % Adhesive Patch,Medicated 1 patch TOPICAL DAILY PRN (Reason: Pain) RF: 0 warfarin 3 mg Tablet 3 mg PO DAILY RF: 0 warfarin 1 mg Tablet 1.5 mg PO DAILY RF: 0 zolpidem [Ambien] 10 mg Tablet 10 mg PO DAILY RF: 0 Lantus Solostar U-100 Insulin 100 unit/mL (3 mL) Insulin Pen 35 unit SUBCUT DAILY RF: 0 Primary Care Provider: Saurabh Hernandez Chi Referrals: Saurabh Hernandez Chi, MD [Primary Care Provider] - Disposition Disposition: Acute Care Hospital Discharge Location: [facility]
--- NOTE | 2020-11-12 10:51 | EKG12_ITS ---
Test Reason : Blood Pressure : / mmHG Vent. Rate : 109 BPM Atrial Rate : 109 BPM P-R Int : 208 ms QRS Dur : 078 ms QT Int : 338 ms P-R-T Axes : 016 004 062 degrees QTc Int : 455 ms Sinus tachycardia Low voltage QRS Inferior infarct , age undetermined Abnormal ECG Confirmed by YEFRI CHAPA, YVETTE ([id number]), industrial editor STANISLAV OVIEDO ([id number]) on 11/14/2020 10:02:59 AM Referred By: HEMA Confirmed By:YVETTE ASIF MD
--- NOTE | 2020-11-12 10:55 | ED.RN ---
multi care technician called to place picc line .
--- NOTE | 2020-11-12 11:01 | NURSING ---
Was asked to see patient for replacement of wound VAC dressing. nursing states that patient had pulled the wound VAC dressing off as well as pulled the PICC line out at home. patient resting in bed. wound VAC dressing in place. the trac pad had been pulled off. there is purulent draining coming from the distal portion of the dressing. gently removed the wound VAC foam. there was a large amount of purulent drainage noted. some mild periwound erythema noted. mild odor. cleansed wound with NS. cultures obtained as ordered. this nurse did not reapply the wound VAC. placed a NS wet to dry dressing and covered with an ABD pad. secured with tape. pt tolerated well. Pt will most likely need to return to the surgeon. pt states surgery was performed in [place].
[2020-11-12 11:16] VITALS: BP 121/73; PULSE 110; RESP 28; TEMP 37.1; O2SAT 98
--- NOTE | 2020-11-12 11:20 | RAD_ITS ---
STUDY: X-RAY CHEST REASON FOR EXAM: Male, 69 years old. Chest wound TECHNIQUE: Single AP portable view of the chest. COMPARISON: Comparison is made with prior study dated 04/25/2020. FINDINGS: EKG electrodes are seen. The lungs are clear and expanded. There is no demonstrated pleural abnormality. Normal size heart. Normal mediastinum and thu. Normal visualized pulmonary arteries. There is atherosclerotic tortuosity of the aortic arch and descending thoracic aorta. Normal visualized thoracic spine. Normal visualized ribs, clavicles, and shoulders. Hiatal hernia. RAD/Chest 1 View (Portable) IMPRESSION: No acute abnormality is seen. Electronically Signed: Lázaro Archer MD at 12:03 EDT , Service support ,
[2020-11-12 11:24] LABS: Absolute Lymphocyte Count 1.25 X10^3/uL (0.83-4.51); Absolute Neutrophil Count 7.8 X10^3/uL (2.0-7.7); Basophil# 0.04 X10^3/uL; Basophil% 0.4 % (0-1); Eosinophil# 0.01 X10^3/uL; Eosinophils% 0.1 % (0-5); Hematocrit 30.8 % (40-54); Hemoglobin 9.5 g/dL (13.0-16.5); Lymphocyte # 1.25 X10^3/ul (0.83-4.51); Lymphocyte % 12.2 % (19-41); Mean Corp Hgb Conc 30.8 g/dL (32-36); Mean Corpuscular Hgb 24.5 pg (27.0-32.0); Mean Corpuscular Volume 79.4 fL (80-94); Mean Platelet Vol. 9.9 fl (6.2-12.0); Monocyte# 1.17 X10^3/uL; Monocyte% 11.4 % (0-10); NRBC Flagged by Analyzer 0 % (0-5); Neutrophil # 7.75 X10^3/uL (2.7-7.7); Neutrophil % 75.6 % (47-70); Platelet Count 355 K/mm3 (150-450); RBC Distribution Width CV 16.6 % (11.6-14.6); RBC Distribution Width SD 47.8 fl (35.1-43.9); Red Blood Count 3.88 M/mm3 (4.6-6.2); White Blood Count 10.3 K/mm3 (4.4-11.0)
[2020-11-12 11:35] LABS: International Normalized Ratio 1.5; Prothrombin Time (Protime)PT. 17.3 SECONDS (11.7-14.9)
[2020-11-12 11:36] LABS: Partial Thromboplast Time 40.4 Seconds (24.1-36.2)
[2020-11-12 11:40] LABS: ALB/GLOB Ratio 0.7 RATIO (0.9-2.4); AST(SGOT) 11 U/L (15-37); Alanine Aminotransfer ALT/SGPT 18 U/L (16-61); Albumin, Serum 3.4 g/dL (3.2-5.0); Alkaline Phosphatase 126 U/L (45-117); Anion Gap 8 (5-15); BUN 14 mg/dL (7-18); BUN/Creat Ratio 16.1 RATIO (10-20); Calcium,Total 9.2 mg/dL (8.5-10.1); Chloride 102 mmol/L (98-107); Creatinine, Serum 0.87 mg/dL (0.70-1.30); EST Glomerular Filtration Rate 93 mL/min (>60); Est Glom Filt Rate - Afr Amer 113 mL/min (>60); Estimated Creatinine Clearance 87.75 ml/min; Globulin 4.6 g/dL (2.2-4.2); Glucose 202 mg/dL (74-106); Sodium Level 134 mmol/L (136-145)
[2020-11-12 11:47] LABS: Lactic Acid 1.4 mmol/L (0.4-1.9)
--- NOTE | 2020-11-12 13:30 | CM.ED ---
Social Work Emergency Department Referral from Dr. Arteaga for resources: patient into the ED with PICC line and Wound VAC off; home care issues. Chart reviewed and spoke with ED staff. Met with patient in ED room, introducing to self and social work role. Patient was sleeping when social work entered but awoke easily. Patient had difficult time with recall of what home health care was to start, but able to tell this filing writer that just got out of [facility]. Patient voiced that may have to back to [facility] again. Asked if okay for this filing writer to call the SNF to check on what services were set and whether patient could return if needed. Patient voiced agreement. Spoke with Vivian in admissions for [facility]. Vivian reports patient was at the SNF From 10.04.20 to 11.11.2020; skilled under [employer] until 11.07.2020. Patient reportedly has medicaid, but not alf medicaid. Reportedly refused to transition to the alf medicaid and wanted to try going home. Patient was set up with [facility], but this was not to start until today, 11.12.2020. Patient would be able to return to the SNF, but patient does have a patient liability of 1,058 dollars with his Medicaid. There may be a possibility of returning skilled under [employer], if patient's care and condition warrants. This filing writer updated by staff that patient is to be transferred to tertiary care center. Updated patient to conversation with Alec and let patient know that further discharge planning will occur from tertiary care center. -DARIO Greene, AD SETTER
--- NOTE | 2020-11-12 14:02 | NURSING ---
CALLED [facility] FOR TRANSFER. TALKED TO RICHARD
[2020-11-12 14:05] VITALS: BP 118/71; PULSE 105; RESP 20; TEMP 37; O2SAT 96
--- NOTE | 2020-11-12 14:05 | ED.RN ---
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 If pt would be admitted we would call them tomorrow. Pt has IV access
--- NOTE | 2020-11-12 15:35 | NURSING ---
[facility] [id number] LEBRON NURSE TO NURSE [phone]
--- NOTE | 2020-11-12 15:52 | NURSING ---
CALLED [facility], ETA IS 30 MIN
[2020-11-12 16:26] VITALS: BP 113/70; PULSE 105; RESP 20; TEMP 37.1; O2SAT 99
[2020-11-12 16:37] VITALS: BP 113/70; PULSE 105; RESP 20; TEMP 37.1; O2SAT 99
== END 2020-11-12 16:35 | disposition short-term general hospital (02) ==
PROVIDERS: Emergency Provider Emergency Medicine; PCP Family Medicine Geriatric Medicine
DX: S21.109A Unspecified open wound of unspecified front wall of thorax without penetration into thoracic cavity, initial encounter (principal); E11.9 Type 2 diabetes mellitus without complications; K21.9 Gastro-esophageal reflux disease without esophagitis; I11.0 Hypertensive heart disease with heart failure; I50.43 Acute on chronic combined systolic (congestive) and diastolic (congestive) heart failure; I25.10 Atherosclerotic heart disease of native coronary artery without angina pectoris; E78.5 Hyperlipidemia, unspecified; Z79.899 Other long term (current) drug therapy; Z79.4 Long term (current) use of insulin; Z79.01 Long term (current) use of 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s; Z87.891 Personal history of nicotine dependence; X58.XXXA Exposure to other specified factors, initial encounter
CPT/HCPCS: 36415; 71045; 80053; 83605; 85025; 85610; 85730; 87040; 87070; 87075; 87077; 87186; 87205; 87426; 93005; 96365; 96366; 99285; J7050; A4216

== ENCOUNTER → 2020-12-19 09:00 | Outpatient (CLI) | payer MEDICARE, SELFPAY ==
[2020-06-30 08:32] VITALS: BMI 29.8
[2020-12-19 12:23] LABS: Absolute Neutrophil Count 7.1 X10^3/uL (2.0-7.7); Basophil# 0.03 X10^3/uL; Basophil% 0.3 % (0-1); Eosinophil# 0.03 X10^3/uL; Eosinophils% 0.3 % (0-5); Hematocrit 32.9 % (40-54); Hemoglobin 9.9 g/dL (13.0-16.5); Lymphocyte % 15.6 % (19-41); Mean Corp Hgb Conc 30.1 g/dL (32-36); Mean Corpuscular Volume 83.1 fL (80-94); Mean Platelet Vol. 10.6 fl (6.2-12.0); Monocyte# 0.92 X10^3/uL; Monocyte% 9.6 % (0-10); NRBC Flagged by Analyzer 0 % (0-5); Neutrophil # 7.08 X10^3/uL (2.7-7.7); Neutrophil % 73.8 % (47-70); POSITIVE MORPHOLOGY YES; Platelet Count 277 K/mm3 (150-450); RBC Distribution Width CV 20.2 % (11.6-14.6); RBC Distribution Width SD 60.7 fl (35.1-43.9); Red Blood Count 3.96 M/mm3 (4.6-6.2); White Blood Count 9.6 K/mm3 (4.4-11.0)
[2020-12-19 12:33] LABS: Differential Indicated SCAN CRITERIA MET
[2020-12-19 12:43] LABS: Vitamin D,25 Hydroxy 19.2 ng/mL
[2020-12-19 12:56] LABS: Anisocytosis RARE
[2020-12-19 13:17] LABS: ALB/GLOB Ratio 0.8 RATIO (0.9-2.4); AST(SGOT) 14 U/L (15-37); Alanine Aminotransfer ALT/SGPT 16 U/L (16-61); Albumin, Serum 3.5 g/dL (3.2-5.0); Alkaline Phosphatase 108 U/L (45-117); Anion Gap 13 (5-15); BUN 18 mg/dL (7-18); Chloride 103 mmol/L (98-107); EST Glomerular Filtration Rate 64 mL/min (>60); Est Glom Filt Rate - Afr Amer 77 mL/min (>60); Globulin 4.3 g/dL (2.2-4.2); Glucose 274 mg/dL (74-106); Potassium 3.5 mmol/L (3.5-5.1); Protein, Total 7.8 g/dL (6.4-8.2); Sodium Level 136 mmol/L (136-145); Thyroid Stim Hormone (TSH) 1.42 uIU/mL (0.358-3.74)
== END ==
PROVIDERS: PCP Family Medicine Geriatric Medicine; Visit Provider Family Medicine Geriatric Medicine
DX: D64.9 Anemia, unspecified (principal); E11.9 Type 2 diabetes mellitus without complications; E23.6 Other disorders of pituitary gland; E55.9 Vitamin D deficiency, unspecified; E78.5 Hyperlipidemia, unspecified; I10 Essential (primary) hypertension
CPT/HCPCS: 36415; 80053; 82306; 84403; 84443; 85025

== ENCOUNTER 2020-12-22 11:42 | Emergency (ER) | payer MEDICARE, MEDICAID, SELFPAY ==
[2020-12-22 11:43] VITALS: BP 163/77; PULSE 89; RESP 16; TEMP 37; O2SAT 99; BMI 29.1
[2020-12-22 11:45] VITALS: BP 163/77; PULSE 89; RESP 16; TEMP 37; O2SAT 99
--- NOTE | 2020-12-22 12:33 | EX.ED.DYSGE1 ---
HPI History of Present Illness Chief Complaint: Wound Check Informant: patient Narrative Narrative: Patient is a 70-year-old male with significant past medical history who presents to the emergency department for not getting his IV capsofungin. This is for a right PICC line infection. He was just discharged from rehab facility 6 days ago. He is staying with a relative who he states is a hoarder. Whenever the nurses showed up to give him his IV he apparently turned them away because he wanted time to clean up. He has not received this medication over the past week since then. He is coming in requesting this to be done now. He apparently talked to his PCP who told him that they will not come back out to his house as he already refused them. Patient has no complaints. He denies any fevers or chills. No nausea or vomiting. He still has jazmyn in the right side of his leg that have been in for the past month. He denies any pain or overlying skin changes. He has dressings over his chest wall which she had a CABG for around 1 to 2 months ago at [facility]. He denies any significant chest pain or shortness of breath. [facility] Medical History Acute on chronic combined systolic and diastolic CHF (congestive heart failure) Atherosclerosis of coronary artery without angina pectoris Back problem Bleeding disorder Chronic combined systolic and diastolic CHF (congestive heart failure) COPD (chronic obstructive pulmonary disease) Diabetic foot infection DVT (deep venous thrombosis) Erectile dysfunction Essential (primary) hypertension Gangrene of toe GERD (gastroesophageal reflux disease) History of non-ST elevation myocardial infarction (NSTEMI) (04/23/20) Hyperglycemia Hyperlipidemia Ischemic cardiomyopathy Lumbar spinal stenosis MSSA (methicillin susceptible Staphylococcus aureus) infection Nicotine dependence Non-healing surgical wound (05/01/20) Nonrheumatic aortic (valve) stenosis 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 Obstructive sleep apnea Osteomyelitis Peripheral vascular occlusive disease Pulmonary edema Respiratory distress Scabies infestation Secondary pulmonary arterial hypertension Sepsis (04/23/20) Thrombocytopenia Type 2 diabetes mellitus 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 foot with fat layer exposed Ulcer of right foot with necrosis of bone Home Medications clopidogrel 75 mg tablet 75 mg PO DAILY #90 tab 03/19/20 [Rx Last Taken Unknown] furosemide 40 mg tablet 40 mg PO BID@1000,1800 #180 tab 03/19/20 [Rx Last Taken Unknown] lisinopril 5 mg tablet 5 mg PO DAILY 05/31/20 [History Last Taken Unknown] metformin 500 mg tablet 500 mg PO BID 05/31/20 [History Last Taken Unknown] metoprolol succinate 50 mg tablet,extended release 24 hr 50 mg PO DAILY 05/31/20 [History Last Taken Unknown] pantoprazole 40 mg tablet,delayed release 40 mg PO DAILY 05/31/20 [History Last Taken Unknown] sennosides 8.6 mg-docusate sodium 50 mg capsule 1 tab-cap PO BID cap 05/31/20 [History Last Taken Unknown] sitagliptin 100 mg tablet 100 mg PO DAILY 05/31/20 [History Last Taken Unknown] insulin aspart U-100 100 unit/mL subcutaneous solution 20 unit SC TID 06/30/20 [History Last Taken Unknown] polyethylene glycol 3350 17 gram/dose oral powder 17 g PO DAILY 06/30/20 [History Last Taken Unknown] tramadol 50 mg tablet 50 mg PO DAILY 06/30/20 [History Last Taken Unknown] atorvastatin 40 mg PO DAILY 11/12/20 [History Last Taken Unknown] gabapentin 1,200 mg PO BID 11/12/20 [History Last Taken Unknown] insulin glargine [Lantus Solostar U-100 Insulin] 35 unit SUBCUT DAILY 11/12/20 [History Last Taken Unknown] lidocaine 1 patch TOPICAL DAILY PRN 11/12/20 [History Last Taken Unknown] warfarin 1.5 mg PO DAILY 11/12/20 [History Last Taken Unknown] warfarin 3 mg PO DAILY 11/12/20 [History Last Taken Unknown] zolpidem [Ambien] 10 mg PO DAILY 11/12/20 [History Last Taken Unknown] Allergy/AdvReac Type Severity Reaction Status Date / Time No Known Allergies Allergy Verified 09/21/20 10:51 Family History Mother Diabetes Heart disease Father Diabetes Surgical History H/O coronary artery bypass surgery (05/01/20) History of angioplasty of peripheral vessel (01/02/10) History of femoropopliteal bypass (2008) History of incision and drainage (09/22/20) History of left heart catheterization (04/23/20) History of lumbar laminectomy History of mechanical aortic valve replacement Social History Smoking Status: Former smoker alcohol intake: never substance use type: does not use caffeine: No ROS ROS ED Constitutional Constitutional ED: Denies chills or fever(s) Eyes Eyes: Denies change in vision ENT ENT ED: Denies epistaxis or rhinorrhea Cardiovascular Cardiovascular: Denies chest pain or palpitations Respiratory/Chest Respiratory/Chest: Denies cough, dyspnea or dyspnea on exertion Gastrointestinal Gastrointestinal: Denies abdominal pain, diarrhea, nausea or vomiting Genitourinary Genitourinary ED: Denies dysuria, hematuria or urinary frequency Musculoskeletal Musculoskeletal: Denies back pain or neck pain Integumentary Denies rash Neurologic Neurologic: Denies dizziness, headache(s) or weakness EXAM Physical Exam Const Vital Signs: 12/22/20 11:43 12/22/20 11:45 12/22/20 14:40 Temperature 98.6 F 98.6 F Temperature Source Temporal Temporal Pulse Rate 89 89 85 Respiratory Rate 16 16 16 Blood Pressure 163/77 H 163/77 H 152/84 H Blood Pressure Mean 105 105 Pulse Ox 99 99 96 Oxygen Delivery Method Room Air Room Air Positive well nourished and well developed General Appearance ED: well developed and NAD HEENT Reports normocephalic, head/scalp atraumatic and moist mucous membranes Eyes PERRL and EOMs intact bilaterally Neck no lymphadenopathy and supple General: Negative for tenderness Chest Wall Chest Narrative: Patient has dressing over previous incision site over sternum. This is clean dry and intact. Well-healed. Resp normal respiratory effort and clear to auscultation bilaterally Auscultation: Negative for rales, rhonchi or wheezes Cardio regular rate, regular rhythm and no murmurs GI normal to inspection, nondistended, normoactive bowel sounds and non-tender Palpation: soft; Negative for guarding or rebound tenderness present Back/Spine no CVA tenderness Extremity Extremity Narrative: Over right leg there is a rectangular area of erythema. No warmth or tenderness. This does have a dressing which is saturated over top of it. There are jazmyn still in place. Some erythema surrounding them but no evidence of infection there. General Extremety ED: Negative for edema or tenderness General Extremity: Negative for edema Neuro oriented x3, CN's II-XII intact bilaterally and no sensory deficits noted Sensorium / Orientation: alert Motor Exam: strength 5/5 throughout Psych mental status grossly normal Skin no rashes or lesions noted MDM MDM MDM Narrative Medical decision making narrative: Patient presents to the ED to request to have his IV caspofungin infused. We do not carry this on formulary. Did contact pharmacy to see if we could give the back that he brought. Pharmacy states that they have no way to verify that this was mixed correctly or stored correctly so we cannot give this. Will have social work talk to the patient to figure out infusion plan in the future as well as his PCP. Did get in touch with Dr. Hernandez and they are going to help arrange his home treatment. He does not feel patient needs to be admitted or treated acutely here in the ED as they will take care of this at home. He does want the patient to be discharged. His vitals are within normal limits. No signs of occult infection or sepsis on my physical exam. He does appear stable for discharge. I did remove the jazmyn that were in place. At this time he is discharged home in stable condition. Return precautions are reviewed. He understands and is agreeable with this plan. Discharge Plan Triage Chief Complaint: Wound Check ED Provider: Jose Magallon Dx/Rx/DC Orders Clinical Impression: Receiving intravenous antibiotic treatment at home, Encounter for staple removal Instructions: ED PICC Line Care Prescriptions: No Action clopidogrel 75 mg tablet 75 mg PO DAILY Qty: 90 RF: 3 furosemide 40 mg tablet 40 mg PO BID@1000,1800 Qty: 180 RF: 3 metoprolol succinate [Toprol XL] 50 mg tablet extended release 24 hr 50 mg PO DAILY RF: 0 metformin 500 mg tablet 500 mg PO BID RF: 0 Januvia 100 mg tablet 100 mg PO DAILY RF: 0 lisinopril 5 mg tablet 5 mg PO DAILY RF: 0 Senna Plus 8.6-50 mg capsule 1 tab-cap PO BID RF: 0 pantoprazole 40 mg tablet,delayed release (DR/EC) 40 mg PO DAILY RF: 0 tramadol 50 mg tablet 50 mg PO DAILY RF: 0 polyethylene glycol 3350 [Miralax] 17 gram/dose powder 17 g PO DAILY RF: 0 insulin aspart U-100 [Novolog U-100 Insulin aspart] 100 unit/mL solution 20 unit SC TID RF: 0 atorvastatin 40 mg Tablet 40 mg PO DAILY RF: 0 gabapentin 600 mg Tablet 1,200 mg PO BID RF: 0 lidocaine 4 % Adhesive Patch,Medicated 1 patch TOPICAL DAILY PRN (Reason: Pain) RF: 0 warfarin 3 mg Tablet 3 mg PO DAILY RF: 0 warfarin 1 mg Tablet 1.5 mg PO DAILY RF: 0 zolpidem [Ambien] 10 mg Tablet 10 mg PO DAILY RF: 0 Lantus Solostar U-100 Insulin 100 unit/mL (3 mL) Insulin Pen 35 unit SUBCUT DAILY RF: 0 Primary Care Provider: Saurabh Hernandez Chi Referrals: Saurabh Hernandez Chi, MD [Primary Care Provider] - As soon as possible Disposition Disposition: Home, self care Discharge Date/Time: 12/22/20 14:41
[2020-12-22 14:40] VITALS: BP 152/84; PULSE 85; RESP 16; O2SAT 96
== END 2020-12-22 14:41 | disposition home or self-care (01) ==
PROVIDERS: Emergency Provider Emergency Medicine; PCP Family Medicine Geriatric Medicine
DX: Z48.02 Encounter for removal of sutures (principal); I25.10 Atherosclerotic heart disease of native coronary artery without angina pectoris; Z95.1 Presence of aortocoronary bypass graft; Z87.891 Personal history of nicotine dependence
CPT/HCPCS: 99283

== ENCOUNTER 2020-12-23 12:58 | Observation (INO) | payer MEDICARE, MEDICAID, SELFPAY ==
[2020-12-22 11:43] VITALS: BMI 29.1
[2020-12-23 13:02] VITALS: BP 161/85; PULSE 107; RESP 16; TEMP 36.4; O2SAT 96; BMI 29.0
[2020-12-23 13:07] VITALS: BP 161/85; PULSE 107; RESP 16; O2SAT 96
--- NOTE | 2020-12-23 13:20 | RAD_ITS ---
STUDY: X-RAY CHEST REASON FOR EXAM: Male, 70 years old. Sob TECHNIQUE: Single AP portable view of the chest. COMPARISON: Comparison is made with prior study dated 11/12/2020. FINDINGS: A right-sided PICC line catheter is seen with the tip in the proximal superior vena cava. The lungs are clear and expanded. There is no demonstrated pleural abnormality. Sternal cerclage wires are present from a prior sternotomy. Normal mediastinum and thu. Normal visualized pulmonary arteries. Normal visualized aortic arch and descending thoracic aorta. There are diffuse degenerative changes of the visualized thoracic spine. There is prominence of the first costal chondral junction bilaterally. There is no demonstrated abnormality of the visualized soft tissue structures of the upper abdomen. RAD/Chest 1 View (Portable) IMPRESSION: No acute abnormality is seen. Electronically Signed: Lázaro Archer MD at 14:44 EDT , Service support ,
--- NOTE | 2020-12-23 13:40 | CM.ED ---
SOCIAL WORK Referral Source: Dr. Valderrama Reason for Consult: Discharge Planning Patient reports has been speaking with Electronics Inspector at [facility] and was working on plans. Patient requires IV antibiotics and was to have home health upon discharge from [facility]. Patient reports refused home health care as home is a mess and wanted to receive IV antibiotics as an outpatient. Patient reports [facility] spoke with Dr. Hernandez and was sent to ER. Patient reports Adult Protective Services has been involved with patient and patient's cousin with whom he resides. Confirmed above with Electronics Inspector at [facility]. Per , Dr. Hernandez was recommending SNF. Lab work pending. Plan: DAISY Hare, INVESTMENT REPRESENTATIVE, BUSINESS CHANGE MANAGER
--- NOTE | 2020-12-23 13:49 | EX.ED.DYSGE1 ---
HPI History of Present Illness Chief Complaint: Wound Check Informant: patient Onset/Context/Timing Onset: Days Context: Gradual Onset Timing: Continuous Current Severity: Mild Maximum Severity: Mild Narrative Narrative: Patient is a 70-year-old male presents to the emergency department from home. The patient's history is rather complex. He had a CABG that was complicated by wound dehiscence. He underwent surgery and skin grafting. He was on broad-spectrum antibiotics and then had a PICC line infection. He was transferred to a tertiary facility and then spent about a month in an acute care facility. The patient had been receiving IV capsofungin for infection. He did have home health set up, however he states that his cousin that he is staying with is a hoarder. They also have bedbugs in the house. He would not not home health come into the home. He has not received his IV antifungals in about a week. He denies fevers or chills. He states his been in contact with his physician Dr. Hernandez. He states he is been trying to get set up with outpatient infusion, but was told to come here. [facility] Medical History Acute on chronic combined systolic and diastolic CHF (congestive heart failure) Atherosclerosis of coronary artery without angina pectoris Back problem Bleeding disorder Chronic combined systolic and diastolic CHF (congestive heart failure) COPD (chronic obstructive pulmonary disease) Diabetic foot infection DVT (deep venous thrombosis) Erectile dysfunction Essential (primary) hypertension Gangrene of toe GERD (gastroesophageal reflux disease) History of non-ST elevation myocardial infarction (NSTEMI) (04/23/20) Hyperglycemia Hyperlipidemia Ischemic cardiomyopathy Lumbar spinal stenosis MSSA (methicillin susceptible Staphylococcus aureus) infection Nicotine dependence Non-healing surgical wound (05/01/20) Nonrheumatic aortic (valve) stenosis 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 Obstructive sleep apnea Osteomyelitis Peripheral vascular occlusive disease Pulmonary edema Respiratory distress Scabies infestation Secondary pulmonary arterial hypertension Sepsis (04/23/20) Thrombocytopenia Type 2 diabetes mellitus 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 foot with fat layer exposed Ulcer of right foot with necrosis of bone Home Medications lisinopril 5 mg tablet 5 mg PO DAILY 05/31/20 [History Last Taken Unknown] metformin 500 mg tablet 500 mg PO BID 05/31/20 [History Last Taken Unknown] metoprolol succinate 50 mg tablet,extended release 24 hr 75 mg PO DAILY 05/31/20 [History Last Taken Unknown] pantoprazole 40 mg tablet,delayed release 40 mg PO DAILY 05/31/20 [History Last Taken Unknown] sennosides 8.6 mg-docusate sodium 50 mg capsule 1 tab-cap PO BID cap 05/31/20 [History Last Taken Unknown] insulin aspart U-100 100 unit/mL subcutaneous solution 10 unit SC TID 06/30/20 [History Last Taken Unknown] polyethylene glycol 3350 17 gram/dose oral powder 17 g PO DAILY 06/30/20 [History Last Taken Unknown] tramadol 50 mg tablet 50 mg PO Q6H 06/30/20 [History Last Taken Unknown] atorvastatin 40 mg PO DAILY 11/12/20 [History Last Taken Unknown] insulin glargine [Lantus Solostar U-100 Insulin] 35 unit SUBCUT DAILY 11/12/20 [History Last Taken Unknown] warfarin 3 mg PO DAILY 11/12/20 [History Last Taken Unknown] acetaminophen [Tylenol Extra Strength] 1,000 mg PO Q6H PRN 12/23/20 [History Last Taken Unknown] ascorbic acid (vitamin C) [Vitamin C] 500 mg PO BID 12/23/20 [History Last Taken Unknown] aspirin [Aspir-81] 81 mg PO DAILY 12/23/20 [History Last Taken Unknown] caspofungin 50 mg IV Q24H 12/23/20 [History Last Taken Unknown] ferrous sulfate 325 mg PO DAILY 12/23/20 [History Last Taken Unknown] furosemide 40 mg PO DAILY 12/23/20 [History Last Taken Unknown] gabapentin 200 mg PO BID 12/23/20 [History Last Taken Unknown] linagliptin [Tradjenta] 5 mg PO DAILY 12/23/20 [History Last Taken Unknown] nystatin 1 applic TOPICAL DAILY 12/23/20 [History Last Taken Unknown] potassium chloride [K-Dur] 20 meq PO DAILY 12/23/20 [History Last Taken Unknown] Allergy/AdvReac Type Severity Reaction Status Date / Time No Known Allergies Allergy Verified 09/21/20 10:51 Family History Mother Diabetes Heart disease Father Diabetes Surgical History H/O coronary artery bypass surgery (05/01/20) History of angioplasty of peripheral vessel (01/02/10) History of femoropopliteal bypass (2008) History of incision and drainage (09/22/20) History of left heart catheterization (04/23/20) History of lumbar laminectomy History of mechanical aortic valve replacement Social History Smoking Status: Former smoker alcohol intake: never substance use type: does not use caffeine: No ROS ROS ED Constitutional Constitutional ED: Denies chills or fever(s) Eyes Eyes: Denies blurry vision or change in vision ENT ENT ED: Denies ear pain or sore throat Cardiovascular Cardiovascular: Denies chest pain or palpitations Respiratory/Chest Respiratory/Chest: Denies cough, dyspnea or dyspnea on exertion Gastrointestinal Gastrointestinal: Denies abdominal pain, nausea or vomiting Genitourinary Genitourinary ED: Denies dysuria or urinary frequency Musculoskeletal Musculoskeletal: Denies arthralgias or myalgias Integumentary Denies rash Neurologic Neurologic: Denies headache(s) or paresthesias Psychiatric Psychiatric: Denies anxiety or depression Endocrine Endocrinology: Denies polydipsia or polyuria Allergic/Immunologic Allergic/Immunologic ED: Denies urticaria EXAM Physical Exam Const Vital Signs: 12/23/20 13:02 12/23/20 13:07 Temperature 97.6 F L Temperature Source Oral Pulse Rate 107 H 107 H Respiratory Rate 16 16 Blood Pressure 161/85 H 161/85 H Blood Pressure Mean 110 110 Pulse Ox 96 96 Oxygen Delivery Method Room Air Room Air Positive well nourished and well developed General Appearance ED: well developed HEENT Reports normocephalic, head/scalp atraumatic and moist mucous membranes Eyes PERRL and EOMs intact bilaterally Neck no lymphadenopathy and supple General: Negative for tenderness Chest Wall inspection of chest normal Resp normal respiratory effort and clear to auscultation bilaterally Resp Narrative: Incision is clean dry and intact Cardio regular rate, regular rhythm and no murmurs GI normal to inspection, nondistended, normoactive bowel sounds Palpation: Negative for tender, guarding or rebound tenderness present Back/Spine no CVA tenderness Cervical Spine: Negative for cervical spine tenderness Thoracic Spine / Upper Back: Negative for thoracic spinal tenderness Extremity normal to inspection General Extremety ED: Negative for tenderness Neuro oriented x3 and CN's II-XII intact bilaterally Neuro Narrative: No focal deficits appreciated. Sensorium / Orientation: alert Psych mental status grossly normal Skin no rashes or lesions noted, no wounds and skin turgor normal MDM MDM MDM Narrative Medical decision making narrative: Patient presents to the emergency department referral from his primary care physician. He recently had prolonged hospitalization. He was found to have fungal infection in his PICC. He is supposed to be on micafungin every 24 hours. His house was in deplorable conditions. It was not safe for home health to go there. He wanted to be set up with the outpatient infusion center, but his physician thought that this was not a reasonable approach. Screening labs were obtained. His INR is mildly subtherapeutic but his labs are otherwise unremarkable. His chest x-ray was unremarkable. I did discuss this with Dr. Hernandez who would like the patient to be admitted to a custodial facility. We have made referral for TCU, but they are unable to accommodate him today. He will be continued on his IV antifungals. Patient was discussed with the hospitalist. Impression 1. Fungal infection 2. Noncompliance with outpatient treatment Lab Data Attestation: I reviewed the patient's lab results. Labs: Laboratory Results - last 24 hr 12/23/20 12/23/20 12/23/20 14:05 14:05 14:05 WBC 5.6 RBC 3.71 L Hgb 9.3 L Hct 31.0 L MCV 83.6 MCH 25.1 L MCHC 30.0 L RDW Std Deviation 58.1 H RDW Coeff of Estrada 18.8 H Plt Count 299 MPV 9.6 Immature Gran % (Auto) 0.400 Neut % (Auto) 55.8 Lymph % (Auto) 33.6 Bibb % (Auto) 8.1 Eos % (Auto) 1.6 Baso % (Auto) 0.5 Absolute Neuts (auto) 3.1 Absolute Lymphs (auto) 1.87 Nucleated RBC % 0 PT 19.0 H INR 1.7 Sodium 141 Potassium 4.1 Chloride 109 H Carbon Dioxide 25.0 Anion Gap 7 BUN 16 Creatinine 0.67 L Estim Creat Clear Calc 75.30 Est GFR (MDRD) Af Amer 151 Est GFR (MDRD) Non-Af 125 BUN/Creatinine Ratio 23.8 H Glucose 192 H Calcium 8.7 Total Bilirubin 0.40 AST 12 L ALT 18 Alkaline Phosphatase 111 Total Protein 7.2 Albumin 3.3 Globulin 3.9 Albumin/Globulin Ratio 0.8 L Radiography Chest X-Ray - ED: 1 View, Read by ED Physician, Unchanged, Normal, Heart, Lungs, Mediastinum, Bony Structures and Chronic Changes Diagnostic Testing: Radiology Impression Chest X-Ray 12/23/20 13:20 IMPRESSION: No acute abnormality is seen. Electronically Signed: Lázaro Archer MD at 14:44 EDT , Service support , Discharge Plan Triage Chief Complaint: Wound Check ED Provider: Jose Cruz Valderrama Dx/Rx/DC Orders Prescriptions: No Action metoprolol succinate [Toprol XL] 50 mg tablet extended release 24 hr 75 mg PO DAILY RF: 0 metformin 500 mg tablet 500 mg PO BID RF: 0 lisinopril 5 mg tablet 5 mg PO DAILY RF: 0 Senna Plus 8.6-50 mg capsule 1 tab-cap PO BID RF: 0 pantoprazole 40 mg tablet,delayed release (DR/EC) 40 mg PO DAILY RF: 0 tramadol 50 mg tablet 50 mg PO Q6H RF: 0 polyethylene glycol 3350 [Miralax] 17 gram/dose powder 17 g PO DAILY RF: 0 insulin aspart U-100 [Novolog U-100 Insulin aspart] 100 unit/mL solution 10 unit SC TID RF: 0 atorvastatin 40 mg Tablet 40 mg PO DAILY RF: 0 warfarin 3 mg Tablet 3 mg PO DAILY RF: 0 Lantus Solostar U-100 Insulin 100 unit/mL (3 mL) Insulin Pen 35 unit SUBCUT DAILY RF: 0 aspirin [Aspir-81] 81 mg Tablet,Delayed Release (Dr/Ec) 81 mg PO DAILY RF: 0 potassium chloride [K-Dur] 20 mEq Tablet,Er Particles/Crystals 20 meq PO DAILY RF: 0 Tradjenta 5 mg Tablet 5 mg PO DAILY RF: 0 ascorbic acid (vitamin C) [Vitamin C] 500 mg Tablet 500 mg PO BID RF: 0 ferrous sulfate 325 mg (65 mg iron) Tablet 325 mg PO DAILY RF: 0 nystatin 100,000 unit/gram Powder 1 applic TOPICAL DAILY RF: 0 caspofungin 50 mg Recon Soln 50 mg IV Q24H RF: 0 acetaminophen [Tylenol Extra Strength] 500 mg Capsule 1,000 mg PO Q6H PRN (Reason: Pain) RF: 0 gabapentin 100 mg Tablet 200 mg PO BID RF: 0 furosemide 40 mg tablet 40 mg PO DAILY RF: 0 Primary Care Provider: Saurabh Hernandez Chi
[2020-12-23 14:09] LABS: Absolute Lymphocyte Count 1.87 X10^3/uL (0.83-4.51); Absolute Neutrophil Count 3.1 X10^3/uL (2.0-7.7); Basophil# 0.03 X10^3/uL; Basophil% 0.5 % (0-1); Eosinophil# 0.09 X10^3/uL; Eosinophils% 1.6 % (0-5); Hemoglobin 9.3 g/dL (13.0-16.5); Lymphocyte # 1.87 X10^3/ul (0.83-4.51); Lymphocyte % 33.6 % (19-41); Mean Corpuscular Hgb 25.1 pg (27.0-32.0); Mean Corpuscular Volume 83.6 fL (80-94); Mean Platelet Vol. 9.6 fl (6.2-12.0); Monocyte# 0.45 X10^3/uL; Monocyte% 8.1 % (0-10); NRBC Flagged by Analyzer 0 % (0-5); Neutrophil % 55.8 % (47-70); Platelet Count 299 K/mm3 (150-450); RBC Distribution Width CV 18.8 % (11.6-14.6); RBC Distribution Width SD 58.1 fl (35.1-43.9); Red Blood Count 3.71 M/mm3 (4.6-6.2); White Blood Count 5.6 K/mm3 (4.4-11.0)
[2020-12-23 14:17] LABS: International Normalized Ratio 1.7
[2020-12-23 14:25] LABS: ALB/GLOB Ratio 0.8 RATIO (0.9-2.4); AST(SGOT) 12 U/L (15-37); Alanine Aminotransfer ALT/SGPT 18 U/L (16-61); Albumin, Serum 3.3 g/dL (3.2-5.0); Alkaline Phosphatase 111 U/L (45-117); Anion Gap 7 (5-15); BUN 16 mg/dL (7-18); BUN/Creat Ratio 23.8 RATIO (10-20); Calcium,Total 8.7 mg/dL (8.5-10.1); Chloride 109 mmol/L (98-107); Creatinine, Serum 0.67 mg/dL (0.70-1.30); EST Glomerular Filtration Rate 125 mL/min (>60); Est Glom Filt Rate - Afr Amer 151 mL/min (>60); Globulin 3.9 g/dL (2.2-4.2); Glucose 192 mg/dL (74-106); Potassium 4.1 mmol/L (3.5-5.1); Protein, Total 7.2 g/dL (6.4-8.2); Sodium Level 141 mmol/L (136-145)
--- NOTE | 2020-12-23 14:45 | CM.ED ---
SOCIAL WORK This worker met with patient and Dr. Valderrama. Patient in agreement with SNF after speaking with cousin. Patient requesting referral to TCU as first choice and [facility] as second choice.
--- NOTE | 2020-12-23 15:10 | CM.ED ---
SOCIAL WORK Call to Genie with TCU. Updated on referral. Genie to review.
--- NOTE | 2020-12-23 15:37 | CM.ED ---
SOCIAL WORK Updated by Maricel URIARTE and by Genie with TCU, unable to accept patient to TCU. Patient updated and in agreement with referral to [facility]. KALANI to follow up with patient tomorrow, 12/24/2020. Raleigh Hare, EXHIBIT CARPENTER, FIRE BOSS
[2020-12-23 15:53] VITALS: BP 163/91; PULSE 90; RESP 15; TEMP 36.7; O2SAT 98
[2020-12-23 15:55] VITALS: BP 163/91; PULSE 88; RESP 19; TEMP 36.7; O2SAT 98
--- NOTE | 2020-12-23 16:05 | HP.PCM.HOS_ITS ---
HPI - General HPI Narrative RAPHAEL HADDAD, is a 70 M who presents presents after not receiving his micafungin for about a week. Patient has had an extensive history where in April 2020 patient had a CABG. Subsequently had a sternal wound infection and a hardware infection and had removal in September 2020. Did have a wound VAC for the sternal dehiscence and infection. Patient was discharged to [facility] and was there until 11 November. On 12 November he was at home and found his PICC line laying in his bed as well as his wound VAC was off. Patient came to [facility] and patient did undergo sternal debridement and wound closure and omental flap closure with a skin graft on November 17. Patient since then has been at home and his wound VAC has subsequently been removed. Patient was just discharged from [facility] again about a week ago. Home care has been unable to come to his house due to deplorable conditions with bedbugs. Patient states that he lives with his cousin and his cousin is described as a hoarder. Patient reached out to his primary care physician, Dr. Hernandez. Who felt the patient would daily be best suited for transitional care unit to continue with his IV antifungals. [facility] Medical History (Updated 12/23/20 @ 16:[address] Kendrick Drummond, DO) Acute on chronic combined systolic and diastolic CHF (congestive heart failure) Atherosclerosis of coronary artery without angina pectoris Back problem Bleeding disorder Chronic combined systolic and diastolic CHF (congestive heart failure) COPD (chronic obstructive pulmonary disease) Diabetic foot infection DVT (deep venous thrombosis) Erectile dysfunction Essential (primary) hypertension Gangrene of toe GERD (gastroesophageal reflux disease) History of non-ST elevation myocardial infarction (NSTEMI) (04/23/20) Hyperglycemia Hyperlipidemia Ischemic cardiomyopathy Lumbar spinal stenosis MSSA (methicillin susceptible Staphylococcus aureus) infection Nicotine dependence Non-healing surgical wound (05/01/20) Nonrheumatic aortic (valve) stenosis 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 Obstructive sleep apnea Osteomyelitis Peripheral vascular occlusive disease Pulmonary edema Respiratory distress Scabies infestation Secondary pulmonary arterial hypertension Sepsis (04/23/20) Sternal wound infection Thrombocytopenia Type 2 diabetes mellitus 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 foot with fat layer exposed Ulcer of right foot with necrosis of bone Home Medications lisinopril 5 mg tablet 5 mg PO DAILY 11/14/20 [History Last Taken Unknown] metformin 500 mg tablet 500 mg PO BIDCM 05/31/20 [History Last Taken Unknown] metoprolol succinate 50 mg tablet,extended release 24 hr 75 mg PO DAILY 05/31/20 [History Last Taken 12/22/20] sennosides 8.6 mg-docusate sodium 50 mg capsule 1 tab-cap PO BID PRN cap 05/31/20 [History Last Taken Unknown] insulin aspart U-100 100 unit/mL subcutaneous solution 25 unit SC DAILY 06/30/20 [History Last Taken Unknown] polyethylene glycol 3350 17 gram/dose oral powder 17 g PO DAILY PRN 06/30/20 [History Last Taken Unknown] atorvastatin 40 mg PO QHS 11/12/20 [History Last Taken Unknown] insulin glargine [Lantus Solostar U-100 Insulin] 35 unit SUBCUT DAILY 11/12/20 [History Last Taken Unknown] warfarin 3 mg PO DAILY 11/12/20 [History Last Taken 12/22/20] acetaminophen [Tylenol Extra Strength] 1,000 mg PO Q6H PRN 12/23/20 [History Last Taken Unknown] ascorbic acid (vitamin C) [Vitamin C] 500 mg PO BID 12/23/20 [History Last Taken Unknown] aspirin [Aspir-81] 81 mg PO DAILY 12/23/20 [History Last Taken Unknown] caspofungin 50 mg IV Q24H 12/23/20 [History Last Taken Unknown] ferrous sulfate 325 mg PO DAILY 12/23/20 [History Last Taken Unknown] furosemide 40 mg PO DAILY 12/23/20 [History Last Taken Unknown] gabapentin 200 mg PO BID 12/23/20 [History Last Taken Unknown] insulin aspart U-100 [Novolog Flexpen U-100 Insulin] 20 unit SUBCUT BIDCM 12/23/20 [History Last Taken Unknown] linagliptin [Tradjenta] 5 mg PO DAILY 12/23/20 [History Last Taken Unknown] nystatin 1 applic TOPICAL DAILY PRN 12/23/20 [History Last Taken 12/22/20] omeprazole 40 mg PO DAILY 12/23/20 [History Last Taken 12/22/20] potassium chloride [K-Dur] 20 meq PO DAILY 12/23/20 [History Last Taken 12/22/20] Allergy/AdvReac Type Severity Reaction Status Date / Time No Known Allergies Allergy Verified 09/21/20 10:51 Family History Mother Diabetes Heart disease Father Diabetes Surgical History H/O coronary artery bypass surgery (05/01/20) History of angioplasty of peripheral vessel (01/02/10) History of femoropopliteal bypass (2008) History of incision and drainage (09/22/20) History of left heart catheterization (04/23/20) History of lumbar laminectomy History of mechanical aortic valve replacement Social History Smoking Status: Former smoker alcohol intake: never substance use type: does not use caffeine: No ROS ROS Narrative All review of systems were negative except as mentioned above in the history of present illness and the other review of systems. Patient states that his sternal wound and leg graft site wounds are healing well. Vital Signs Vital Signs Vital Signs: 12/23/20 13:02 12/23/20 13:07 12/23/20 15:53 Temperature 36.4 C L 36.7 C Temperature Source Oral Oral Pulse Rate 107 H 107 H 90 Respiratory Rate 16 16 15 Blood Pressure 161/85 H 161/85 H 163/91 H Blood Pressure Mean 110 110 115 Pulse Ox 96 96 98 Oxygen Delivery Method Room Air Room Air Room Air 12/23/20 15:55 Temperature 36.7 C Temperature Source Oral Pulse Rate 88 Respiratory Rate 19 H Blood Pressure 163/91 H Blood Pressure Mean 115 Pulse Ox 98 Oxygen Delivery Method Room Air Weight Weight: 94.347 kg Body Mass Index (BMI) 29.0 Physical Exam Const alert General Appearance: cooperative HEENT normocephalic Eyes Eyes Narrative: No scleral icterus Resp normal respiratory effort and no use of accessory muscles Cardio regular rate, regular rhythm, S1 normal heart sound and S2 normal heart sound GI normal to inspection, nondistended, normoactive bowel sounds, non-tender and non-distended Skin Skin Narrative: Healing leg graft sites. Sternal wound bandaged, did not remove. Neuro Sensorium / Orientation: awake and alert Psych affect normal Results Lab / Micro Data Result Diagrams: 12/23/20 14:05 12/23/20 14:05 Labs: Laboratory Results - last 24 hr 12/23/20 12/23/20 12/23/20 14:05 14:05 14:05 WBC 5.6 RBC 3.71 L Hgb 9.3 L Hct 31.0 L MCV 83.6 MCH 25.1 L MCHC 30.0 L RDW Std Deviation 58.1 H RDW Coeff of Estrada 18.8 H Plt Count 299 MPV 9.6 Immature Gran % (Auto) 0.400 Neut % (Auto) 55.8 Lymph % (Auto) 33.6 Motley % (Auto) 8.1 Eos % (Auto) 1.6 Baso % (Auto) 0.5 Absolute Neuts (auto) 3.1 Absolute Lymphs (auto) 1.87 Nucleated RBC % 0 PT 19.0 H INR 1.7 Sodium 141 Potassium 4.1 Chloride 109 H Carbon Dioxide 25.0 Anion Gap 7 BUN 16 Creatinine 0.67 L Estim Creat Clear Calc 75.30 Est GFR (MDRD) Af Amer 151 Est GFR (MDRD) Non-Af 125 BUN/Creatinine Ratio 23.8 H Glucose 192 H Calcium 8.7 Total Bilirubin 0.40 AST 12 L ALT 18 Alkaline Phosphatase 111 Total Protein 7.2 Albumin 3.3 Globulin 3.9 Albumin/Globulin Ratio 0.8 L Radiology Impression Chest X-Ray 12/23/20 13:20 IMPRESSION: No acute abnormality is seen. Electronically Signed: Lázaro Archer MD at 14:44 EDT , Service support , Assessment & Plan Assessment/Plan (1) Sternal wound infection: PLAN: 1. Sternal wound infection * Patient on micafungin through March. Patient has not received over the past week due to deplorable home conditions and wound care would not enter his home due to that. We will need to facilitate will place for the patient to receive IV antifungals but also wound care. And that would either be at a nursing home facility or outpatient infusion center with outpatient wound care follow-up. * Will request infectious disease documentation from [facility]. * Discussed with Dr. Johansen, who will see the patient on consultation. * Consult wound care for further sternal wound and right leg harvesting graft site wound care. * Reviewed the patient's discharge paperwork and from [facility] on November 24 and also reviewed his MAR from [facility]. 2. Diabetes mellitus type 2 * Continue with insulin glargine prandial insulin, Tradjenta and Metformin * Add sliding scale insulin 3. Status post mechanical aortic valve replacement * Continue with warfarin. INR currently subtherapeutic. * Will add enoxaparin until INR around 2.5 4. Coronary artery disease * Status post CABG * Continue aspirin, atorvastatin, metoprolol and lisinopril 5. VTE prophylaxis: Not indicated as patient is already anticoagulated 6. Advanced care planning: Discussed with the patient. Patient is a they want no life support but when I asked him about cardiopulmonary resuscitation and ventilation he did not address it definitively. I told him that we would be leaving him a full CODE STATUS unless he indicates otherwise. He expressed understanding. Charges/Coding Visit Charges OBSV E&M: 67121 Initial observation care L3
[2020-12-23 16:37] VITALS: BMI 28.7
[2020-12-23 16:38] VITALS: BP 138/71; PULSE 94; RESP 16; TEMP 36.6; O2SAT 98
[2020-12-23 17:25] LABS: Bedside Glucose 173 mg/dL (70-110)
[2020-12-23] MEDS: metFORMIN HCl 500 MG Tablet PO (17:40)
[2020-12-23] MEDS: Gabapentin 100 MG Capsule 200 MG PO (17:40)
[2020-12-23] MEDS: Insulin Lispro 100 UNIT/ML INSULN.PEN SC (17:42)
--- NOTE | 2020-12-23 18:58 | PCA ---
Consent obtained from patient for release of medical records from [facility]-Infectious Disease fax number - [phone]
--- NOTE | 2020-12-23 19:24 | PCA ---
obtained medical records from [facility] placed on the front of patient chart.
[2020-12-23 21:51] VITALS: BP 146/75; PULSE 88; RESP 16; TEMP 36.6; O2SAT 99
[2020-12-23] MEDS: Ascorbic Acid 500 MG Tablet PO (22:06)
[2020-12-23] MEDS: Enoxaparin 100 MG/ML Syringe 90 MG SC (22:06)
[2020-12-23] MEDS: Atorvastatin Calcium 40 MG Tablet PO (22:06)
[2020-12-23] MEDS: Glucerna Shake 120 ML LIQUID PO (22:09)
[2020-12-23 22:16] LABS: Bedside Glucose 169 mg/dL (70-110)
[2020-12-24 03:36] VITALS: BP 158/81; PULSE 93; RESP 16; TEMP 36.6; O2SAT 97
[2020-12-24] MEDS: Enoxaparin 100 MG/ML Syringe 90 MG SC ×2 (06:33→17:23)
[2020-12-24] MEDS: Insulin Lispro 100 UNIT/ML INSULN.PEN SC ×2 (06:33→12:04)
[2020-12-24 06:40] LABS: Bedside Glucose 225 mg/dL (70-110)
[2020-12-24 06:43] LABS: Absolute Lymphocyte Count 2.06 X10^3/uL (0.83-4.51); Absolute Neutrophil Count 2.9 X10^3/uL (2.0-7.7); Basophil# 0.04 X10^3/uL; Basophil% 0.7 % (0-1); Eosinophil# 0.14 X10^3/uL; Eosinophils% 2.5 % (0-5); Hematocrit 32.1 % (40-54); Hemoglobin 9.5 g/dL (13.0-16.5); Lymphocyte # 2.06 X10^3/ul (0.83-4.51); Lymphocyte % 36.3 % (19-41); Mean Corp Hgb Conc 29.6 g/dL (32-36); Mean Corpuscular Hgb 24.9 pg (27.0-32.0); Mean Platelet Vol. 9.8 fl (6.2-12.0); Monocyte# 0.52 X10^3/uL; Monocyte% 9.2 % (0-10); NRBC Flagged by Analyzer 0 % (0-5); Neutrophil % 50.9 % (47-70); Platelet Count 295 K/mm3 (150-450); RBC Distribution Width CV 18.6 % (11.6-14.6); RBC Distribution Width SD 57.1 fl (35.1-43.9); Red Blood Count 3.82 M/mm3 (4.6-6.2); White Blood Count 5.7 K/mm3 (4.4-11.0)
[2020-12-24 07:04] LABS: International Normalized Ratio 1.6; Prothrombin Time (Protime)PT. 18.5 SECONDS (11.7-14.9)
[2020-12-24 07:21] LABS: Anion Gap 7 (5-15); BUN 12 mg/dL (7-18); BUN/Creat Ratio 18.5 RATIO (10-20); Calcium,Total 8.9 mg/dL (8.5-10.1); Chloride 108 mmol/L (98-107); Creatinine, Serum 0.65 mg/dL (0.70-1.30); EST Glomerular Filtration Rate 130 mL/min (>60); Est Glom Filt Rate - Afr Amer 158 mL/min (>60); Glucose 225 mg/dL (74-106); Potassium 4.1 mmol/L (3.5-5.1); Sodium Level 138 mmol/L (136-145)
[2020-12-24 08:10] VITALS: BP 126/78; PULSE 94; RESP 18; TEMP 36.7; O2SAT 97
--- NOTE | 2020-12-24 08:16 | PCM.PN.HOSP ---
Subjective Subjective Chief complaint: Follow-up after admission due to noncompliance with outpatient IV antifungal treatment for sternal wound infection. Patient seen and examined. No acute events overnight. He denies any significant complaints. No chest pain or shortness of breath. Denied fever or chills. According to the patient, he supposed to be on IV caspofungin until March 21, 2021. He has been having problems taking this medicine at home by the home health nurses. He states that he can walk and drive and he is willing to come to the infusion center every day to have his medication given. His vital signs are stable, afebrile. Objective Data Objective Data Vital Signs: Vital Signs Temp Pulse Resp BP Pulse Ox 98 F 93 16 158/81 H 97 12/24/20 03:36 12/24/20 03:36 12/24/20 03:36 12/24/20 03:36 12/24/20 03:36 Oxygen Delivery Method Room Air Weight: 206 lb 1.6 oz Body Mass Index (BMI) 28.7 Intake & Output: Intake and Output for Last 24 Hours 12/22/20 12/23/20 12/24/20 23:59 23:59 23:59 Intake Total 955 / 955 500 / 500 Output Total 700 / 700 Balance 955 / 955 -200 / -200 Lab / Micro Data Result Diagrams: 12/24/20 06:20 12/24/20 06:20 Labs: Laboratory Results - last 24 hr 12/23/20 12/23/20 12/23/20 14:05 14:05 14:05 WBC 5.6 RBC 3.71 L Hgb 9.3 L Hct 31.0 L MCV 83.6 MCH 25.1 L MCHC 30.0 L RDW Std Deviation 58.1 H RDW Coeff of Estrada 18.8 H Plt Count 299 MPV 9.6 Immature Gran % (Auto) 0.400 Neut % (Auto) 55.8 Lymph % (Auto) 33.6 [place] % (Auto) 8.1 Eos % (Auto) 1.6 Baso % (Auto) 0.5 Absolute Neuts (auto) 3.1 Absolute Lymphs (auto) 1.87 Nucleated RBC % 0 PT 19.0 H INR 1.7 Sodium 141 Potassium 4.1 Chloride 109 H Carbon Dioxide 25.0 Anion Gap 7 BUN 16 Creatinine 0.67 L Estim Creat Clear Calc 75.30 Est GFR (MDRD) Af Amer 151 Est GFR (MDRD) Non-Af 125 BUN/Creatinine Ratio 23.8 H Glucose 192 H Calcium 8.7 Total Bilirubin 0.40 AST 12 L ALT 18 Alkaline Phosphatase 111 Total Protein 7.2 Albumin 3.3 Globulin 3.9 Albumin/Globulin Ratio 0.8 L POC Glucose 12/23/20 12/23/20 12/24/20 17:23 21:59 06:20 WBC 5.7 RBC 3.82 L Hgb 9.5 L Hct 32.1 L MCV 84.0 MCH 24.9 L MCHC 29.6 L RDW Std Deviation 57.1 H RDW Coeff of Estrada 18.6 H Plt Count 295 MPV 9.8 Immature Gran % (Auto) 0.400 Neut % (Auto) 50.9 Lymph % (Auto) 36.3 [place] % (Auto) 9.2 Eos % (Auto) 2.5 Baso % (Auto) 0.7 Absolute Neuts (auto) 2.9 Absolute Lymphs (auto) 2.06 Nucleated RBC % 0 PT INR Sodium Potassium Chloride Carbon Dioxide Anion Gap BUN Creatinine Estim Creat Clear Calc Est GFR (MDRD) Af Amer Est GFR (MDRD) Non-Af BUN/Creatinine Ratio Glucose Calcium Total Bilirubin AST ALT Alkaline Phosphatase Total Protein Albumin Globulin Albumin/Globulin Ratio POC Glucose 173 H 169 H 12/24/20 12/24/20 12/24/20 06:20 06:20 06:30 WBC RBC Hgb Hct MCV MCH MCHC RDW Std Deviation RDW Coeff of Estrada Plt Count MPV Immature Gran % (Auto) Neut % (Auto) Lymph % (Auto) [place] % (Auto) Eos % (Auto) Baso % (Auto) Absolute Neuts (auto) Absolute Lymphs (auto) Nucleated RBC % PT 18.5 H INR 1.6 Sodium 138 Potassium 4.1 Chloride 108 H Carbon Dioxide 23.0 Anion Gap 7 BUN 12 Creatinine 0.65 L Estim Creat Clear Calc 75.30 Est GFR (MDRD) Af Amer 158 Est GFR (MDRD) Non-Af 130 BUN/Creatinine Ratio 18.5 Glucose 225 H Calcium 8.9 Total Bilirubin AST ALT Alkaline Phosphatase Total Protein Albumin Globulin Albumin/Globulin Ratio POC Glucose 225 H Radiography Diagnostic Testing: Radiology Impression Chest X-Ray 06/08/21 13:20 IMPRESSION: No acute abnormality is seen. Electronically Signed: Lázaro Archer MD at 14:44 EDT , Service support , Physical Exam Const alert, oriented x3, no apparent distress and no limitations General Appearance: cooperative HEENT normocephalic, head/scalp atraumatic, external ears normal, external nose normal and moist oral mucous membranes Eyes PERRL, EOMs intact bilaterally, conjunctivae normal and no scleral icterus General Eye: normal appearance of both eyes Neck no lymphadenopathy, supple, no meningeal signs, no JVD and no carotid bruits Lymph Lymphatic: no lymphadenopathy noted Resp normal respiratory effort, normal air movement and clear to auscultation bilaterally Auscultation: Negative for crackles, rales, rhonchi or wheezes Cardio regular rate, regular rhythm, S1 normal heart sound, S2 normal heart sound, no murmurs and no JVD GI normal to inspection, nondistended, normoactive bowel sounds, soft to palpation, non-tender and non-distended; Negative for hepatosplenomegaly Extremity normal to inspection, full ROM and no clubbing, cyanosis or edema Skin no rashes or lesions noted and no petechiae Skin Narrative: Sternal wound: Skin graft is intact, dry, no drainage, no erythema. Neuro oriented x3, CN's II-XII intact bilaterally and moves all extremities Sensorium / Orientation: alert Speech: speech normal Motor Exam: strength 5/5 throughout Psych mental status grossly normal, affect normal and denies hallucinations Assessment & Plan Assessment/Plan (1) Sternal wound infection: (2) History of non-ST elevation myocardial infarction (NSTEMI): (3) H/O coronary artery bypass surgery: (4) History of mechanical aortic valve replacement: (5) Ischemic cardiomyopathy: (6) Chronic combined systolic and diastolic CHF (congestive heart failure): (7) Essential (primary) hypertension: (8) Hyperlipidemia: QUALIFIERS: Hyperlipidemia type: unspecified Qualified Code(s): E78.5 - Hyperlipidemia, unspecified PLAN: This is a 70 years old male patient admitted because of noncompliance with IV antifungal treatment for sternal wound infection, had a recent history of CABG that was complicated by wound dehiscence and infections, status post debridement and skin graft, supposed to be on IV caspofungin until March 21, 2021. #1 sternal wound dehiscence/infection: Status post debridement and skin graft few weeks ago, supposed to be on IV caspofungin until March 21, 2021. The sternal wound and skin graft looks intact and dry, no erythema or drainage. Patient is afebrile, no leukocytosis. Currently, he is on IV micafungin. Afebrile, no leukocytosis, skin graft and wound looks dry and clean. Infectious disease consulted. Plan: workers compensation adjuster and case management consult for either long-term placement or discharge home with IV antibiotics set up as outpatient. #2 CAD status post recent CABG: Denies any chest pain or shortness of breath. Stable, no complaints. Continue aspirin, statins, lisinopril and metoprolol. #3 status post aortic valve replacement with prosthetic valve: On Coumadin for anticoagulation, INR is subtherapeutic, started on therapeutic Lovenox twice daily for bridging. #4 type 2 diabetes mellitus: ADA diet, Accu-Cheks, continue insulin as part 3 times daily, Lantus daily, sliding scale, linagliptin. #5 hypertension: Blood pressure stable, continue current medications. #6 chronic anemia: Stable, hemoglobin and hematocrit are at baseline, continue iron supplement. #7 DVT prophylaxis: INR is 1.6, on Lovenox twice daily. This note was generated with [employer] dictation software. It may contain incorrect words, spelling, and punctuation that were not noted in checking the note before signing. Charges/Coding Visit Charges OBSV E&M: 50077 Subsequent observation care L2
--- NOTE | 2020-12-24 08:26 | NURSING ---
wound photo: sternum
--- NOTE | 2020-12-24 08:27 | NURSING ---
skin photo: healed donor site right thigh
--- NOTE | 2020-12-24 08:50 | NURSING ---
called [facility] Infectious Disease office to verify stop date for caspofungin. they confirm stop date of March 21, 2021 and will fax order to place on pt chart.
[2020-12-24] MEDS: 0.9 % NaCl (Sterile) Posiflush 10 mL IV ×2 (10:19→12:04)
[2020-12-24] MEDS: Potassium Chloride Oral Tablet 20 MEQ PO (10:19)
[2020-12-24] MEDS: metFORMIN HCl 500 MG Tablet PO (10:19)
[2020-12-24] MEDS: Lisinopril 5 MG Tablet PO (10:19)
[2020-12-24] MEDS: Ascorbic Acid 500 MG Tablet PO (10:19)
[2020-12-24] MEDS: Furosemide 40 MG Tablet PO (10:19)
[2020-12-24] MEDS: Aspirin E.C. 81 MG Tablet PO (10:20)
[2020-12-24] MEDS: Ferrous Sulfate 325 MG Tablet PO (10:20)
[2020-12-24] MEDS: Gabapentin 100 MG Capsule 200 MG PO ×2 (10:20→17:23)
[2020-12-24] MEDS: LINAGLIPTIN 5 MG TABLET PO (10:20)
[2020-12-24 10:21] VITALS: PULSE 113
[2020-12-24] MEDS: Metoprolol(XL)Succ 25 MG Tablet 75 MG PO (10:21)
[2020-12-24] MEDS: Glucerna Shake 120 ML LIQUID PO ×2 (10:34→13:01)
--- NOTE | 2020-12-24 10:38 | CASEMGMT ---
Addendum entered by Maricel Randle 12/24/20 15:29: SW provided RN with list of RETIREMENT who will provide list to pt. Original Note: Social Work Note SW updated by PT/OT that pt is requesting to discharge home. SW reviewed OT, pt walked 100ft contact guard. SW in to speak with pt. SW introduced self and role at [facility]. Pt is alert and orientated. SW asked pt about discharge plans. Pt states I didn't know I really had a choice. SW informed pt that he does have a choice. Pt states his first choice would be to return home and complete IV antibiotics as an outpatient at the infusion clinic. Pt states he is independent at home, is able to drive himself to the infusion clinic for his IV antibiotics. SW spoke with pt about home condition. Pt confirms that he lives with his cousin who is a hoarder and there are bed bugs in the home. SW spoke with pt about other living options. Pt states he has been thinking about looking into Assisted Livings. SW informed pt that this worker can provide him with Assisted Living List, pt agreeable to [facility] list. SW informed pt that ID will see pt and make recommendations on IV antibiotics but RN CM can look into arranging antibiotics at the infusion clinic. Pt states understanding, again states first choice is to return home with IV antibiotics through the infusion clinic. KALANI updated RN CM on request to return home with IV antibiotics at infusion clinic. SW to provide pt with list of RETIREMENT. Maricel Randle CASING FINISHER AND STUFFER, PRINTING PRESS MACHINIST
[2020-12-24 12:41] LABS: Bedside Glucose 315 mg/dL (70-110)
[2020-12-24] MEDS: Insulin Lispro 100 UNIT/ML INSULN.PEN 25 UNIT SC (12:52)
--- NOTE | 2020-12-24 13:40 | CON.PCM.ID_ITS ---
Assessment & Plan Assessment/Plan (1) Sebastian osteomyelitis, acute: PLAN: On micafungin, follows with ID at [facility]. Reviewed available records, more have been requested. Not clear why fluconazole was changed to micafungin. He reports he would be able to travel to infusion center daily, but would prefer assisted living. Will follow, thank you, d/w embedded case manager. IV abx to continue until 03/25/21. HPI Consult Data Date of Consult: 12/24/20 HPI Narrative HPI Narrative: RAPHAEL HADDAD, is a 70 M with AVR on 05/01/2020 who presented for IV abx. Admitted 09/21/20 to [facility] for sebastian albicans sternal osteo. Taken to OR for debridement. Plan was for ertapenen through 11/04/20 and fluconazole through 03/25/21. Taken back to OR end of October for flap placement. He is now on micafungin. Was at [facility], discharged home, but home health care unable to see him for wound care and iv abx due to living conditions with reported hoarding and bed bugs. PCP sent him to [facility]. Continued on micafungin, chest doing well. Has gotten covid shot with J&J. No fever, no n/v/d. Full ROS performed and neg except as noted above. [facility] Medical History Atherosclerosis of coronary artery without angina pectoris Bleeding disorder Chronic combined systolic and diastolic CHF (congestive heart failure) COPD (chronic obstructive pulmonary disease) Diabetic foot infection DVT (deep venous thrombosis) Gangrene of toe GERD (gastroesophageal reflux disease) History of non-ST elevation myocardial infarction (NSTEMI) (04/23/20) Ischemic cardiomyopathy Lumbar spinal stenosis MSSA (methicillin susceptible Staphylococcus aureus) infection Nicotine dependence Non-healing surgical wound (05/01/20) Nonrheumatic aortic (valve) stenosis 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 Obstructive sleep apnea Osteomyelitis Peripheral vascular occlusive disease Scabies infestation Secondary pulmonary arterial hypertension Sternal wound infection 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 foot with fat layer exposed Ulcer of right foot with necrosis of bone Home Medications lisinopril 5 mg tablet 5 mg PO DAILY 05/31/20 [History Last Taken Unknown] metformin 500 mg tablet 500 mg PO BIDCM 05/31/20 [History Last Taken Unknown] metoprolol succinate 50 mg tablet,extended release 24 hr 75 mg PO DAILY 05/31/20 [History Last Taken 12/22/20] sennosides 8.6 mg-docusate sodium 50 mg capsule 1 tab-cap PO BID PRN cap 05/31 [History Last Taken Unknown] insulin aspart U-100 100 unit/mL subcutaneous solution 25 unit SC DAILY 06/30/20 [History Last Taken Unknown] polyethylene glycol 3350 17 gram/dose oral powder 17 g PO DAILY PRN 06/30/20 [History Last Taken Unknown] atorvastatin 40 mg PO QHS 11/12/20 [History Last Taken Unknown] insulin glargine [Lantus Solostar U-100 Insulin] 35 unit SUBCUT DAILY 11/12/20 [History Last Taken Unknown] warfarin 3 mg PO DAILY 11/12/20 [History Last Taken 12/22/20] acetaminophen [Tylenol Extra Strength] 1,000 mg PO Q6H PRN 12/23/20 [History Last Taken Unknown] ascorbic acid (vitamin C) [Vitamin C] 500 mg PO BID 12/23/20 [History Last Taken Unknown] aspirin [Aspir-81] 81 mg PO DAILY 12/23/20 [History Last Taken Unknown] caspofungin 50 mg IV Q24H 12/23/20 [History Last Taken Unknown] ferrous sulfate 325 mg PO DAILY 12/23/20 [History Last Taken Unknown] furosemide 40 mg PO DAILY 12/23/20 [History Last Taken Unknown] gabapentin 200 mg PO BID 12/23/20 [History Last Taken Unknown] insulin aspart U-100 [Novolog Flexpen U-100 Insulin] 20 unit SUBCUT BIDCM 12/23/20 [History Last Taken Unknown] linagliptin [Tradjenta] 5 mg PO DAILY 12/23/20 [History Last Taken Unknown] nystatin 1 applic TOPICAL DAILY PRN 12/23/20 [History Last Taken 12/22/20] omeprazole 40 mg PO DAILY 12/23/20 [History Last Taken 12/22/20] potassium chloride [K-Dur] 20 meq PO DAILY 12/23/20 [History Last Taken 12/22/20] Allergy/AdvReac Type Severity Reaction Status Date / Time No Known Allergies Allergy Verified 09/21/20 10:51 Family History Mother Diabetes Heart disease Father Diabetes Surgical History H/O coronary artery bypass surgery (05/01/20) History of angioplasty of peripheral vessel (01/02/10) History of femoropopliteal bypass (2008) History of incision and drainage (09/22/20) History of left heart catheterization (04/23/20) History of lumbar laminectomy History of mechanical aortic valve replacement Social History Smoking Status: Former smoker alcohol intake: never substance use type: does not use caffeine: No Physical Exam Const alert, oriented x3 and no apparent distress General Appearance: cooperative HEENT normocephalic and head/scalp atraumatic Eyes PERRL and EOMs intact bilaterally Neck supple and No nodes Resp normal air movement and clear to auscultation bilaterally Cardio regular rate and regular rhythm GI normal to inspection, nondistended, normoactive bowel sounds Extremity no clubbing, cyanosis or edema Skin Skin Narrative: sternal incisions well healed Neuro CN's II-XII intact bilaterally Lab / Micro Data Result Diagrams: 12/24/20 06:20 12/24/20 06:20 Labs: Laboratory Results - last 24 hr 12/23/20 12/23/20 12/23/20 14:05 14:05 14:05 WBC 5.6 RBC 3.71 L Hgb 9.3 L Hct 31.0 L MCV 83.6 MCH 25.1 L MCHC 30.0 L RDW Std Deviation 58.1 H RDW Coeff of Estrada 18.8 H Plt Count 299 MPV 9.6 Immature Gran % (Auto) 0.400 Neut % (Auto) 55.8 Lymph % (Auto) 33.6 [place] % (Auto) 8.1 Eos % (Auto) 1.6 Baso % (Auto) 0.5 Absolute Neuts (auto) 3.1 Absolute Lymphs (auto) 1.87 Nucleated RBC % 0 PT 19.0 H INR 1.7 Sodium 141 Potassium 4.1 Chloride 109 H Carbon Dioxide 25.0 Anion Gap 7 BUN 16 Creatinine 0.67 L Estim Creat Clear Calc 75.30 Est GFR (MDRD) Af Amer 151 Est GFR (MDRD) Non-Af 125 BUN/Creatinine Ratio 23.8 H Glucose 192 H Calcium 8.7 Total Bilirubin 0.40 AST 12 L ALT 18 Alkaline Phosphatase 111 Total Protein 7.2 Albumin 3.3 Globulin 3.9 Albumin/Globulin Ratio 0.8 L POC Glucose 12/23/20 12/23/20 12/24/20 17:23 21:59 06:20 WBC 5.7 RBC 3.82 L Hgb 9.5 L Hct 32.1 L MCV 84.0 MCH 24.9 L MCHC 29.6 L RDW Std Deviation 57.1 H RDW Coeff of Estrada 18.6 H Plt Count 295 MPV 9.8 Immature Gran % (Auto) 0.400 Neut % (Auto) 50.9 Lymph % (Auto) 36.3 [place] % (Auto) 9.2 Eos % (Auto) 2.5 Baso % (Auto) 0.7 Absolute Neuts (auto) 2.9 Absolute Lymphs (auto) 2.06 Nucleated RBC % 0 PT INR Sodium Potassium Chloride Carbon Dioxide Anion Gap BUN Creatinine Estim Creat Clear Calc Est GFR (MDRD) Af Amer Est GFR (MDRD) Non-Af BUN/Creatinine Ratio Glucose Calcium Total Bilirubin AST ALT Alkaline Phosphatase Total Protein Albumin Globulin Albumin/Globulin Ratio POC Glucose 173 H 169 H 12/24/20 12/24/20 12/24/20 06:20 06:20 06:30 WBC RBC Hgb Hct MCV MCH MCHC RDW Std Deviation RDW Coeff of Estrada Plt Count MPV Immature Gran % (Auto) Neut % (Auto) Lymph % (Auto) [place] % (Auto) Eos % (Auto) Baso % (Auto) Absolute Neuts (auto) Absolute Lymphs (auto) Nucleated RBC % PT 18.5 H INR 1.6 Sodium 138 Potassium 4.1 Chloride 108 H Carbon Dioxide 23.0 Anion Gap 7 BUN 12 Creatinine 0.65 L Estim Creat Clear Calc 75.30 Est GFR (MDRD) Af Amer 158 Est GFR (MDRD) Non-Af 130 BUN/Creatinine Ratio 18.5 Glucose 225 H Calcium 8.9 Total Bilirubin AST ALT Alkaline Phosphatase Total Protein Albumin Globulin Albumin/Globulin Ratio POC Glucose 225 H 12/24/20 12:03 WBC RBC Hgb Hct MCV MCH MCHC RDW Std Deviation RDW Coeff of Estrada Plt Count MPV Immature Gran % (Auto) Neut % (Auto) Lymph % (Auto) [place] % (Auto) Eos % (Auto) Baso % (Auto) Absolute Neuts (auto) Absolute Lymphs (auto) Nucleated RBC % PT INR Sodium Potassium Chloride Carbon Dioxide Anion Gap BUN Creatinine Estim Creat Clear Calc Est GFR (MDRD) Af Amer Est GFR (MDRD) Non-Af BUN/Creatinine Ratio Glucose Calcium Total Bilirubin AST ALT Alkaline Phosphatase Total Protein Albumin Globulin Albumin/Globulin Ratio POC Glucose 315 H Radiology Impression Chest X-Ray 12/23/20 13:20 IMPRESSION: No acute abnormality is seen. Electronically Signed: Lázaro Archer MD at 14:44 EDT , Service support ,
[2020-12-24 14:30] VITALS: BP 131/70; PULSE 98; RESP 16; TEMP 36.6; O2SAT 97
--- NOTE | 2020-12-24 15:17 | NURSING ---
Addendum entered and electronically signed by Maricel Cisneros 12/24/20 16:46: Patient paperwork from [facility] with no mention of f/u with [facility] ID Sherry Dougherty and mentioned on original ordering medication form to f/u with such. RNCM to f/u [facility] ID office to inquire about getting f/u appointment set. ALFREDO Luz Original Note: Addendum entered and electronically signed by Maricel Cisneros 12/24/20 16:33: Dz: Kristal Osteomyelitis Discussed with patient regarding inability of outpatient infusion pharmacy having available medication. Aware RNCM will f/u tomorrow with [facility] IV Coordinater listed on patient original order in hard chart. If [facility] has no option for patient to drive to daily infusion then aware may need SNF. In network list provided and patient states preference [facility]. [facility] 2. [facility]. hide and skin processing worker Maricel Ledbetter updated and aware. Reported back by primary nurse Sara that outpatient infusion pharmacy has an equivalent therapeutic med if ID doctor willing to change it. Sara and/or charge nurse Celena to call outpatient infusion pharmacy to see if they can call ID Dr Johansen and get a VO for the change. ALFREDO Luz Original Note: Addendum entered and electronically signed by Maricel Cisneros 12/24/20 16:05: 1600- Called [facility] Infusion Center [phone], s/w Hermelinda and states that their pharmacist will need to call main pharmacist to see if they have that medication. 1606- Return call from Hermelinda and states that it is not on formulary at Infusion pharmacy. Will discuss with patient and healthcare team on alternative plan. ALFREDO Luz Original Note: RNHIEN Note: Issue: Patient is placed on IV Antifungal for s/p CABG with wound I&D/Skin graft- F/B ID from [facility]. Patient was at [facility] and started on Caspofungin 11/21/20 50mg IV Daily, has PICC, Stop date 03/21/21. Lab monitoring: CBC, CMP, CRP every Tuesday, Routine lab draws may be done on Tuesday if Tuesday a Holiday per written order from [facility] ID dept. Patient was Dc'd from [facility] to Home with HH ordered but per report they would not come out or enter home d/t concerns of deplorable living conditions- Hoarding and bed bugs. Patient lives with his cousin. Patient went without IV antifungal x1 week. Presented to hospital to receive IV antifungal and coordinate receiving it throughout end of duration. Wound dressing appeared dirty per report but once taken off and wound cleaned- reported that wound appeared to be well healing and without drainage. Reported patient is independent with [employer] and does drive. hide and skin processing worker Maricel Ledbetter s/w patient and amongst primary nurse, and providers and does not want to go to SNF. Patient states he would like to go to [facility], patient was provided resources on [facility] and aware cannot DC to one from hospital. Patient would like to return home and is agreeable to drive daily to the infusion center for infusions. Per primary nurse patient does not require would care but for RNCM to collaborate with provider, patient and/or wound center to see if recommending patient f/u with the wound center outpatient to monitor wound site to ensure continued proper healing. RNCM to fax Outpatient Infusion Prescription and Preauthorization form to inquire if outpatient Infusion Ctr will accept patient. Form Signed by [facility] ID Dr Johansen but to be f/b primary ID from [facility] that wrote original order- Dr Peña Powell, , . [facility] ID Dept: [phone]. Patient has f/u appointment with Dr Peña Powell. ALFREDO Luz
--- NOTE | 2020-12-24 15:39 | DCINST_ITS ---
Discharge Instructions Diet Discharge Diet: Low fat / Low cholesterol and 1800 Calorie Control Diet Activity Discharge Activity: Return to Normal Activity Weight Bearing Status: Weight bearing as tolerated Dressing / Incision Call your doctor if your incision/area has: Continuous Slow Oozing, Sudden Increased Bleeding, Increased Pain/ Swelling, Increased Redness, Foul Smelling Discharge and Swelling at the incision site Call your doctor if you observe: Fever of 101 or Higher, Shortness of breath, Dizziness, Fainting spells, Chest pain, Increased palpitations (irregular hear tbeat) and Uncontrolled pain Follow Up Care Test Results: Test results from this visit will be discussed in further detail at your follow-up appointment, if applicable. Discharge Plan Admission Admit Date/Time: 12/23/20 16:04 Attending Provider: Juan Claros Primary Care Provider: Saurabh Hernandez Chi Consulting Providers: John Johansen Discharge Orders/Prescriptions Prescriptions: New enoxaparin 100 mg/mL Syringe 90 mg subcut Q12@0600,1800 Qty: 6 RF: 0 No Action metoprolol succinate [Toprol XL] 50 mg tablet extended release 24 hr 75 mg PO DAILY RF: 0 metformin 500 mg tablet 500 mg PO BIDCM RF: 0 lisinopril 5 mg tablet 5 mg PO DAILY RF: 0 Senna Plus 8.6-50 mg capsule 1 tab-cap PO BID PRN (Reason: Constipation) RF: 0 polyethylene glycol 3350 [Miralax] 17 gram/dose powder 17 g PO DAILY PRN (Reason: Constipation) RF: 0 insulin aspart U-100 [Novolog U-100 Insulin aspart] 100 unit/mL solution 25 unit SC DAILY RF: 0 atorvastatin 40 mg Tablet 40 mg PO QHS RF: 0 warfarin 3 mg Tablet 3 mg PO DAILY RF: 0 Lantus Solostar U-100 Insulin 100 unit/mL (3 mL) Insulin Pen 35 unit SUBCUT DAILY RF: 0 aspirin [Aspir-81] 81 mg Tablet,Delayed Release (Dr/Ec) 81 mg PO DAILY RF: 0 potassium chloride [K-Dur] 20 mEq Tablet,Er Particles/Crystals 20 meq PO DAILY RF: 0 Tradjenta 5 mg Tablet 5 mg PO DAILY RF: 0 ascorbic acid (vitamin C) [Vitamin C] 500 mg Tablet 500 mg PO BID RF: 0 ferrous sulfate 325 mg (65 mg iron) Tablet 325 mg PO DAILY RF: 0 nystatin 100,000 unit/gram Powder 1 applic TOPICAL DAILY PRN (Reason: redness) RF: 0 caspofungin 50 mg Recon Soln 50 mg IV Q24H RF: 0 acetaminophen [Tylenol Extra Strength] 500 mg Capsule 1,000 mg PO Q6H PRN (Reason: Pain) RF: 0 gabapentin 100 mg Tablet 200 mg PO BID RF: 0 furosemide 40 mg tablet 40 mg PO DAILY RF: 0 insulin aspart U-100 [Novolog Flexpen U-100 Insulin] 100 unit/mL (3 mL) insulin pen 20 unit SUBCUT BIDCM RF: 0 omeprazole 40 mg capsule,delayed release(DR/EC) 40 mg PO DAILY RF: 0 Other Ambulatory Orders: Prothrombin Time w/INR (Routine) Timeframe: 2 Days Facility: [facility] - Location: Laboratory Ordered By: Dr. Juan Claros Referrals / Follow Up: Sauarbh Hernandez Chi, MD [Primary Care Provider] - In 1 Week Disposition Disposition (needs filled in before D/C Order can be placed): Home, self care
--- NOTE | 2020-12-24 16:43 | NURSING ---
RNCM GONSALES Note: Reviewed and explained GONSALES form with patient in regards to current treatment this hospital stay. Informed outpatient billing is determined by his insurance provider and continual review is conducted to determine any changes in condition that may warrant inpatient stay. Patient acknowledged and denies questions with form. Form signed and placed in patient hard chart. Patient provided a copy. ALFREDO Luz
--- NOTE | 2020-12-24 17:15 | CASEMGMT ---
Social Work Note Pt is now able to discharge home today. SW in to speak with pt. SW updated pt that he will be discharged home today and RN will be in to go over discharge paperwork and information. Pt had earlier made a comment of taking a gun to his dogs as he was not going to be home to care for them. SW spoke with pt about that comment. Pt denied any current suicidal/homicidal thoughts/plans/ideations. SW spoke with pt regarding his current frustrations. Pt states it's one plan and then the other and then the other. SW provided support to pt. SW received message from Francy at [facility] requesting call back. SW placed a call to Francy at [facility] and left message that pt was discharged home today. Maricel Randle MUSIC ASSISTANT, MANAGER CARD
[2020-12-24 17:41] LABS: Bedside Glucose 78 mg/dL (70-110)
--- NOTE | 2020-12-24 18:33 | PCM.DC.SUM ---
Providers Date of Admission: 12/23/20 Primary Care Physician: Dr. Saurabh Hernandez MD Consultations 12/23/20 16:36 Consult: Infectious Disease Routine Consulting Provider: John Johansen Reason for Consult: IV antifungal EMERGENT Consult: No MD Notified: Yes Date Notified: 12/23/20 Time Notified: 15:58 Method of Notification: Verbal Consult: Onc/Wound/major account manager Routine Comment: Reason For Visit: IV CASPOFUNGIN Diagnosis Discharge Diagnosis (1) Kristal osteomyelitis, acute: Status: Acute Code(s): M86.10 - Other acute osteomyelitis, unspecified site; B37.89 - Other sites of candidiasis (2) Sternal wound infection: Status: Acute Code(s): S21.101A - Unspecified open wound of right front wall of thorax without penetration into thoracic cavity, initial encounter; L08.9 - Local infection of the skin and subcutaneous tissue, unspecified (3) Type 2 diabetes mellitus: Status: Chronic Code(s): E11.9 - Type 2 diabetes mellitus without complications (4) H/O coronary artery bypass surgery: Status: Resolved Code(s): Z95.1 - Presence of aortocoronary bypass graft (5) History of mechanical aortic valve replacement: Status: Resolved Code(s): Z95.2 - Presence of prosthetic heart valve (6) Ischemic cardiomyopathy: Status: Chronic Code(s): I25.5 - Ischemic cardiomyopathy (7) Essential (primary) hypertension: Status: Chronic Code(s): I10 - Essential (primary) hypertension (8) Hyperlipidemia: Status: Chronic Code(s): E78.5 - Hyperlipidemia, unspecified Qualifiers: Hyperlipidemia type: unspecified Qualified Code(s): E78.5 - Hyperlipidemia, unspecified Medications at Discharge Home Medications lisinopril 5 mg tablet 5 mg PO DAILY 05/31/20 metformin 500 mg tablet 500 mg PO BIDCM 05/31/20 metoprolol succinate 50 mg tablet,extended release 24 hr 75 mg PO DAILY 05/31/20 sennosides 8.6 mg-docusate sodium 50 mg capsule 1 tab-cap PO BID PRN cap 05/31/20 insulin aspart U-100 100 unit/mL subcutaneous solution 25 unit SC DAILY 06/30/20 polyethylene glycol 3350 17 gram/dose oral powder 17 g PO DAILY PRN 06/30/20 atorvastatin 40 mg PO QHS 04/28/21 insulin glargine [Lantus Solostar U-100 Insulin] 35 unit SUBCUT DAILY 11/12/20 warfarin 3 mg PO DAILY 11/12/20 acetaminophen [Tylenol Extra Strength] 1,000 mg PO Q6H PRN 12/23/20 ascorbic acid (vitamin C) [Vitamin C] 500 mg PO BID 12/23/20 aspirin [Aspir-81] 81 mg PO DAILY 12/23/20 caspofungin 50 mg IV Q24H 12/23/20 ferrous sulfate 325 mg PO DAILY 12/23/20 furosemide 40 mg PO DAILY 12/23/20 gabapentin 200 mg PO BID 12/23/20 insulin aspart U-100 [Novolog Flexpen U-100 Insulin] 20 unit SUBCUT BIDCM 12/23/20 linagliptin [Tradjenta] 5 mg PO DAILY 12/23/20 nystatin 1 applic TOPICAL DAILY PRN 12/23/20 omeprazole 40 mg PO DAILY 12/23/20 potassium chloride [K-Dur] 20 meq PO DAILY 12/23/20 enoxaparin 90 mg SUBCUT Q12@0600,1800 #6 ml 12/24/20 Hospital Course Operations None Procedures None Summary of Care Provided Minutes Spent on Discharge: 27 Hospital Course: This is a 70 years old male patient presented to the emergency room after not receiving IV caspofungin for about a Week. This patient had a recent history of CABG around 2 months ago, complicated by wound dehiscence and infection, underwent debridement and skin graft which also complicated by Kristal osteomyelitis of the sternum and he has been on IV caspofungin daily and he supposed to be on it until March 21, 2021. Because of home situation, patient was not able to get his medication for the last week. He denied any fever or chills upon admission. The skin graft looks intact and dry, there was no evidence of erythema or drainage. His vital signs remained stable throughout admission. His routine blood work was unremarkable apart from chronic anemia. Infectious disease consulted to facilitate the discharge plan. Patient refused to go to assisted facility. There was no option for him to go to assisted living. Patient stated that he is ambulatory, can walk and drive and he has no problems coming to our infusion center every day to get his injections. He does have a prescription from his infectious disease doctor at [facility] for IV caspofungin with the routine blood work that was ordered weekly with end date of March 21, 2021. Infusion center request that we have to have a new prescription for IV caspofungin which was done by Dr. Johansen. Because of availability of this medication, pharmacy recommended to do therapeutic exchange with micafungin. Dr. Hector agreed to sign the prescription for micafungin with the end date of March 21, 2021. Patient discharged home in a stable medical condition, continued on his previous home medications without any changes, plan to have Dr. Johansen sign the prescription for micafungin IV daily tomorrow morning and will have patient come to our infusion center every day to get his medication. Recommended follow-up with PCP in 1 week and recommended follow-up with his infectious disease doctor as recommended. Physical Exam Const alert, oriented x3, no apparent distress and no limitations General Appearance: cooperative HEENT normocephalic, head/scalp atraumatic, external ears normal, external nose normal and moist oral mucous membranes Eyes PERRL, EOMs intact bilaterally, conjunctivae normal and no scleral icterus Eyes Narrative: No scleral icterus General Eye: normal appearance of both eyes Neck no lymphadenopathy, supple, no meningeal signs, no JVD and no carotid bruits Lymph Lymphatic: no lymphadenopathy noted Resp normal respiratory effort, normal air movement, no use of accessory muscles and clear to auscultation bilaterally Auscultation: Negative for crackles, rales, rhonchi or wheezes Cardio regular rate, regular rhythm, S1 normal heart sound, S2 normal heart sound, no murmurs and no JVD GI normal to inspection, nondistended, normoactive bowel sounds, soft to palpation, non-tender and non-distended; Negative for hepatosplenomegaly Extremity normal to inspection, full ROM and no clubbing, cyanosis or edema Skin no rashes or lesions noted and no petechiae Skin Narrative: Sternal wound: Skin graft is intact, dry, no drainage, no erythema. Neuro oriented x3, CN's II-XII intact bilaterally and moves all extremities Sensorium / Orientation: awake and alert Speech: speech normal Motor Exam: strength 5/5 throughout Psych mental status grossly normal, affect normal and denies hallucinations Weight / BMI Weight Weight: 206 lb 1.586 oz Body Mass Index (BMI) 28.7 ABG / Lab / Microbiology Data Result Diagrams: 12/24/20 06:20 12/24/20 06:20 Laboratory: Laboratory Results - last 24 hr 12/23/20 12/24/20 12/24/20 21:59 06:20 06:20 WBC 5.7 RBC 3.82 L Hgb 9.5 L Hct 32.1 L MCV 84.0 MCH 24.9 L MCHC 29.6 L RDW Std Deviation 57.1 H RDW Coeff of Estrada 18.6 H Plt Count 295 MPV 9.8 Immature Gran % (Auto) 0.400 Neut % (Auto) 50.9 Lymph % (Auto) 36.3 [place] % (Auto) 9.2 Eos % (Auto) 2.5 Baso % (Auto) 0.7 Absolute Neuts (auto) 2.9 Absolute Lymphs (auto) 2.06 Nucleated RBC % 0 PT 18.5 H INR 1.6 Sodium Potassium Chloride Carbon Dioxide Anion Gap BUN Creatinine Estim Creat Clear Calc Est GFR (MDRD) Af Amer Est GFR (MDRD) Non-Af BUN/Creatinine Ratio Glucose Calcium POC Glucose 169 H 12/24/20 12/24/20 12/24/20 06:20 06:30 12:03 WBC RBC Hgb Hct MCV MCH MCHC RDW Std Deviation RDW Coeff of Estrada Plt Count MPV Immature Gran % (Auto) Neut % (Auto) Lymph % (Auto) [place] % (Auto) Eos % (Auto) Baso % (Auto) Absolute Neuts (auto) Absolute Lymphs (auto) Nucleated RBC % PT INR Sodium 138 Potassium 4.1 Chloride 108 H Carbon Dioxide 23.0 Anion Gap 7 BUN 12 Creatinine 0.65 L Estim Creat Clear Calc 75.30 Est GFR (MDRD) Af Amer 158 Est GFR (MDRD) Non-Af 130 BUN/Creatinine Ratio 18.5 Glucose 225 H Calcium 8.9 POC Glucose 225 H 315 H 12/24/20 17:14 WBC RBC Hgb Hct MCV MCH MCHC RDW Std Deviation RDW Coeff of Estrada Plt Count MPV Immature Gran % (Auto) Neut % (Auto) Lymph % (Auto) [place] % (Auto) Eos % (Auto) Baso % (Auto) Absolute Neuts (auto) Absolute Lymphs (auto) Nucleated RBC % PT INR Sodium Potassium Chloride Carbon Dioxide Anion Gap BUN Creatinine Estim Creat Clear Calc Est GFR (MDRD) Af Amer Est GFR (MDRD) Non-Af BUN/Creatinine Ratio Glucose Calcium POC Glucose 78 D/C Instructions Discharge Diet: Low fat / Low cholesterol and 1800 Calorie Control Diet Weight Bearing Status: Weight bearing as tolerated Call your doctor if your incision/area has: Continuous Slow Oozing, Sudden Increased Bleeding, Increased Pain/ Swelling, Increased Redness, Foul Smelling Discharge and Swelling at the incision site Call your doctor if you observe: Fever of 101 or Higher, Shortness of breath, Dizziness, Fainting spells, Chest pain, Increased palpitations (irregular heartbeat) and Uncontrolled pain Please Follow Up With: outpatient infusion center Meaningful Use Info Meaningful Use Diagnoses (Choose all that apply): None applicable Discharge Plan Admission Admit Date/Time: 12/23/20 16:04 Attending Provider: Juan Claros Primary Care Provider: Saurabh Hernandez Chi Consulting Providers: John Johansen Discharge Orders/Prescriptions Prescriptions: New enoxaparin 100 mg/mL Syringe 90 mg subcut Q12@0600,1800 Qty: 6 RF: 0 No Action metoprolol succinate [Toprol XL] 50 mg tablet extended release 24 hr 75 mg PO DAILY RF: 0 metformin 500 mg tablet 500 mg PO BIDCM RF: 0 lisinopril 5 mg tablet 5 mg PO DAILY RF: 0 Senna Plus 8.6-50 mg capsule 1 tab-cap PO BID PRN (Reason: Constipation) RF: 0 polyethylene glycol 3350 [Miralax] 17 gram/dose powder 17 g PO DAILY PRN (Reason: Constipation) RF: 0 insulin aspart U-100 [Novolog U-100 Insulin aspart] 100 unit/mL solution 25 unit SC DAILY RF: 0 atorvastatin 40 mg Tablet 40 mg PO QHS RF: 0 warfarin 3 mg Tablet 3 mg PO DAILY RF: 0 Lantus Solostar U-100 Insulin 100 unit/mL (3 mL) Insulin Pen 35 unit SUBCUT DAILY RF: 0 aspirin [Aspir-81] 81 mg Tablet,Delayed Release (Dr/Ec) 81 mg PO DAILY RF: 0 potassium chloride [K-Dur] 20 mEq Tablet,Er Particles/Crystals 20 meq PO DAILY RF: 0 Tradjenta 5 mg Tablet 5 mg PO DAILY RF: 0 ascorbic acid (vitamin C) [Vitamin C] 500 mg Tablet 500 mg PO BID RF: 0 ferrous sulfate 325 mg (65 mg iron) Tablet 325 mg PO DAILY RF: 0 nystatin 100,000 unit/gram Powder 1 applic TOPICAL DAILY PRN (Reason: redness) RF: 0 caspofungin 50 mg Recon Soln 50 mg IV Q24H RF: 0 acetaminophen [Tylenol Extra Strength] 500 mg Capsule 1,000 mg PO Q6H PRN (Reason: Pain) RF: 0 gabapentin 100 mg Tablet 200 mg PO BID RF: 0 furosemide 40 mg tablet 40 mg PO DAILY RF: 0 insulin aspart U-100 [Novolog Flexpen U-100 Insulin] 100 unit/mL (3 mL) insulin pen 20 unit SUBCUT BIDCM RF: 0 omeprazole 40 mg capsule,delayed release(DR/EC) 40 mg PO DAILY RF: 0 Other Ambulatory Orders: Prothrombin Time w/INR (Routine) Timeframe: 2 Days Facility: [facility] - Location: Laboratory Ordered By: Dr. Juan Claros Referrals / Follow Up: Saurabh Hernandez Chi, MD [Primary Care Provider] - In 1 Week Disposition Disposition (needs filled in before D/C Order can be placed): Home, self care Charges/Coding Visit Charges OBSV E&M: 71140 Observation care discharge
[2020-12-24 18:45] VITALS: BP 108/65; PULSE 90; RESP 16; TEMP 36.9; O2SAT 98
== END 2020-12-24 19:05 | disposition home or self-care (01) ==
LOC: ED 13:29 → MS3 16:14
PROVIDERS: Emergency Provider Emergency Medicine; PCP Family Medicine Geriatric Medicine; Visit Provider Hospitalist
DX: T81.49XA Infection following a procedure, other surgical site, initial encounter (principal); T82.7XXA Infection and inflammatory reaction due to other cardiac and vascular devices, implants and grafts, initial encounter; B37.89 Other sites of candidiasis; M86.18 Other acute osteomyelitis, other site; Y83.2 Surgical operation with anastomosis, bypass or graft as the cause of abnormal reaction of the patient, or of later complication, without mention of misadventure at the time of the procedure; I25.5 Ischemic cardiomyopathy; E78.5 Hyperlipidemia, unspecified; I10 Essential (primary) hypertension; I11.0 Hypertensive heart disease with heart failure; I25.10 Atherosclerotic heart disease of native coronary artery without angina pectoris; I50.42 Chronic combined systolic (congestive) and diastolic (congestive) heart failure; K21.9 Gastro-esophageal reflux disease without esophagitis; I25.2 Old myocardial infarction; G47.33 Obstructive sleep apnea (adult) (pediatric); E11.42 Type 2 diabetes mellitus with diabetic polyneuropathy; I27.21 Secondary pulmonary arterial hypertension; J44.9 Chronic obstructive pulmonary disease, unspecified; Z86.718 Personal history of other venous thrombosis and embolism; Z95.2 Presence of prosthetic heart valve; Z79.899 Other long term (current) drug therapy; Z79.4 Long term (current) use of insulin; Z79.01 Long term (current) use of 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s; Z79.82 Long term (current) use of aspirin; Z87.891 Personal history of nicotine dependence; Z91.19 Patient's noncompliance with other medical treatment and regimen
CPT/HCPCS: 36415; 36592; 71045; 80048; 80053; 82962; 85025; 85610; 96365; 96366; 96372; 97162; 97166; 97802; 99218; 99285; 99406; A4216; G0378

== ENCOUNTER → 2020-12-25 10:29 | Outpatient (CLI) | payer MEDICARE, MEDICAID, SELFPAY ==
[2020-12-23 16:37] VITALS: BMI 28.7
[2020-12-25 10:38] VITALS: BP 113/54; PULSE 79; RESP 16; TEMP 35.5; O2SAT 98; BMI 29.0
[2020-12-25] MEDS: 0.9% NaCl PICC Flush IV ×2 (10:50→12:27)
[2020-12-25] MEDS: 0.9% NaCl IVPB Med Flush (250 mL) 15 ML IV (10:50)
[2020-12-25 12:30] VITALS: BP 131/65; PULSE 79; RESP 16; TEMP 36.4; O2SAT 100
== END ==
PROVIDERS: PCP Family Medicine Geriatric Medicine; Referring Provider Internal Medicine Infectious Disease; Visit Provider Internal Medicine Infectious Disease
DX: M86.9 Osteomyelitis, unspecified (principal); E11.628 Type 2 diabetes mellitus with other skin complications
CPT/HCPCS: 96365; 96366; J7050; A4216

== ENCOUNTER → 2020-12-26 10:22 | Outpatient (CLI) | payer MEDICARE, MEDICAID, SELFPAY ==
[2020-12-25 10:38] VITALS: BMI 29.0
[2020-12-26 10:33] VITALS: BP 109/66; PULSE 105; RESP 20; O2SAT 97; BMI 29.0
[2020-12-26] MEDS: 0.9% NaCl PICC Flush IV ×3 (10:44→12:29)
[2020-12-26] MEDS: 0.9% NaCl IVPB Med Flush (250 mL) 15 ML IV (10:44)
[2020-12-26 11:11] LABS: International Normalized Ratio 3.3; Prothrombin Time (Protime)PT. 32.8 SECONDS (11.7-14.9)
[2020-12-26 12:01] VITALS: BP 129/47; PULSE 90; RESP 16; TEMP 36.4; O2SAT 98
== END ==
PROVIDERS: Hospitalist; PCP Family Medicine Geriatric Medicine; Referring Provider Internal Medicine Infectious Disease; Visit Provider Internal Medicine Infectious Disease
DX: M86.9 Osteomyelitis, unspecified (principal); E11.628 Type 2 diabetes mellitus with other skin complications; Z95.2 Presence of prosthetic heart valve
CPT/HCPCS: 96365; 36592; 85610; J7050; A4216

== ENCOUNTER 2020-12-27 10:14 | Outpatient (CLI) | payer MEDICARE, MEDICAID, SELFPAY ==
[2020-12-25 10:38] VITALS: BMI 29.0
[2020-12-26 10:33] VITALS: BMI 29.0
[2020-12-27 10:28] VITALS: BP 124/80; PULSE 98; RESP 20; TEMP 36.8; O2SAT 98
[2020-12-27] MEDS: 0.9 % NaCl (Sterile) Posiflush 10 mL IV (10:59)
== END 2020-12-27 12:27 ==
LOC: MEDOUTP 10:14 → MS3 10:15
PROVIDERS: PCP Family Medicine Geriatric Medicine; Referring Provider Internal Medicine Infectious Disease; Visit Provider Internal Medicine Infectious Disease
DX: M86.9 Osteomyelitis, unspecified (principal); E11.628 Type 2 diabetes mellitus with other skin complications
CPT/HCPCS: 96365; 96366; J7050

== ENCOUNTER 2020-12-28 10:18 | Outpatient (CLI) | payer MEDICARE, MEDICAID, SELFPAY ==
[2020-12-25 10:38] VITALS: BMI 29.0
[2020-12-26 10:33] VITALS: BMI 29.0
[2020-12-28 10:30] VITALS: BP 94/62; PULSE 108; RESP 16; TEMP 36.6; O2SAT 98
[2020-12-28] MEDS: 0.9% Saline Lock 10 ML Syringe IV (10:35)
[2020-12-28 11:55] VITALS: BP 133/68; PULSE 90; RESP 16; TEMP 36.6; O2SAT 98
== END 2020-12-28 11:46 ==
LOC: MEDOUTP 10:18 → PCU 10:19
PROVIDERS: PCP Family Medicine Geriatric Medicine; Referring Provider Internal Medicine Infectious Disease; Visit Provider Internal Medicine Infectious Disease
DX: M86.9 Osteomyelitis, unspecified (principal); E11.628 Type 2 diabetes mellitus with other skin complications
CPT/HCPCS: 96365; J7050; A4216

== ENCOUNTER → 2020-12-29 10:38 | Outpatient (CLI) | payer MEDICARE, MEDICAID, SELFPAY ==
[2020-12-25 10:38] VITALS: BMI 29.0
[2020-12-26 10:33] VITALS: BMI 29.0
[2020-12-29 10:52] VITALS: BP 138/76; PULSE 113; RESP 16; TEMP 36.2; O2SAT 98; BMI 29.2
[2020-12-29 11:15] LABS: Hematocrit 33.6 % (40-54); Mean Corp Hgb Conc 29.8 g/dL (32-36); Mean Corpuscular Hgb 25.2 pg (27.0-32.0); Mean Corpuscular Volume 84.6 fL (80-94); Mean Platelet Vol. 9.9 fl (6.2-12.0); Platelet Count 355 K/mm3 (150-450); RBC Distribution Width CV 18.2 % (11.6-14.6); Red Blood Count 3.97 M/mm3 (4.6-6.2); White Blood Count 6.7 K/mm3 (4.4-11.0)
[2020-12-29] MEDS: 0.9% NaCl IVPB Med Flush (250 mL) 15 ML IV (11:23)
[2020-12-29 11:27] LABS: ALB/GLOB Ratio 0.9 RATIO (0.9-2.4); AST(SGOT) 22 U/L (15-37); Alanine Aminotransfer ALT/SGPT 21 U/L (16-61); Albumin, Serum 3.6 g/dL (3.2-5.0); Alkaline Phosphatase 119 U/L (45-117); Anion Gap 7 (5-15); BUN 8 mg/dL (7-18); Calcium,Total 8.7 mg/dL (8.5-10.1); Chloride 108 mmol/L (98-107); Creatinine, Serum 0.67 mg/dL (0.70-1.30); EST Glomerular Filtration Rate 126 mL/min (>60); Est Glom Filt Rate - Afr Amer 153 mL/min (>60); Globulin 3.8 g/dL (2.2-4.2); Glucose 175 mg/dL (74-106); Potassium 4.2 mmol/L (3.5-5.1); Protein, Total 7.4 g/dL (6.4-8.2); Sodium Level 142 mmol/L (136-145)
[2020-12-29 12:47] VITALS: BP 152/79; PULSE 92; RESP 18; TEMP 36.1; O2SAT 97
[2020-12-29 19:09] LABS: Xtra Tube EP Lab EXTRA TUBE
== END ==
PROVIDERS: PCP Family Medicine Geriatric Medicine; Referring Provider Internal Medicine Infectious Disease; Visit Provider Internal Medicine Infectious Disease
DX: M86.9 Osteomyelitis, unspecified (principal); E11.628 Type 2 diabetes mellitus with other skin complications
CPT/HCPCS: 96365; 96366; 36592; 80053; 85027; 86140; J7050; A4216

== ENCOUNTER → 2020-12-30 10:11 | Outpatient (CLI) | payer MEDICARE, MEDICAID, SELFPAY ==
[2020-12-25 10:38] VITALS: BMI 29.0
[2020-12-29 10:52] VITALS: BMI 29.2
[2020-12-30 10:37] VITALS: BP 103/54; PULSE 92; RESP 16; TEMP 36.6; O2SAT 99; BMI 29.2
[2020-12-30] MEDS: 0.9% NaCl PICC Flush IV ×2 (10:41→12:21)
[2020-12-30] MEDS: 0.9% NaCl IVPB Med Flush (250 mL) 15 ML IV (10:41)
[2020-12-30 12:26] VITALS: BP 118/52; PULSE 92; RESP 16; O2SAT 99
== END ==
PROVIDERS: PCP Family Medicine Geriatric Medicine; Referring Provider Internal Medicine Infectious Disease; Visit Provider Internal Medicine Infectious Disease
DX: M86.9 Osteomyelitis, unspecified (principal); E11.628 Type 2 diabetes mellitus with other skin complications
CPT/HCPCS: 96365; J7050; A4216

== ENCOUNTER → 2020-12-31 10:17 | Outpatient (CLI) | payer MEDICARE, MEDICAID, SELFPAY ==
[2020-12-30 10:37] VITALS: BMI 29.2
[2020-12-31] MEDS: 0.9% NaCl PICC Flush IV ×2 (10:28→12:17)
[2020-12-31] MEDS: 0.9% NaCl IVPB Med Flush (250 mL) 15 ML IV (10:28)
[2020-12-31 10:35] VITALS: BP 109/62; PULSE 93; RESP 20; TEMP 36.1; O2SAT 98; BMI 29.2
[2020-12-31 12:18] VITALS: BP 135/67; PULSE 81; RESP 16; TEMP 35.9; O2SAT 98
== END ==
PROVIDERS: PCP Family Medicine Geriatric Medicine; Referring Provider Internal Medicine Infectious Disease; Visit Provider Internal Medicine Infectious Disease
DX: M86.9 Osteomyelitis, unspecified (principal); E11.628 Type 2 diabetes mellitus with other skin complications
CPT/HCPCS: 96365; 96366; J7050; A4216

== ENCOUNTER → 2021-01-01 10:09 | Outpatient (CLI) | payer MEDICARE, MEDICAID, SELFPAY ==
[2020-12-30 10:37] VITALS: BMI 29.2
[2020-12-31 10:35] VITALS: BMI 29.2
[2021-01-01 10:15] VITALS: BP 101/54; PULSE 86; RESP 16; TEMP 36.5; O2SAT 100; BMI 29.2
[2021-01-01] MEDS: 0.9% NaCl IVPB Med Flush (250 mL) 15 ML IV (10:25)
[2021-01-01] MEDS: 0.9% NaCl PICC Flush IV ×2 (10:25→12:06)
== END ==
PROVIDERS: PCP Family Medicine Geriatric Medicine; Referring Provider Internal Medicine Infectious Disease; Visit Provider Internal Medicine Infectious Disease
DX: M86.9 Osteomyelitis, unspecified (principal); E11.628 Type 2 diabetes mellitus with other skin complications
CPT/HCPCS: 96365; 96366; J7050; A4216

== ENCOUNTER → 2021-01-02 10:12 | Outpatient (CLI) | payer MEDICARE, MEDICAID, SELFPAY ==
[2020-12-30 10:37] VITALS: BMI 29.2
[2021-01-01 10:15] VITALS: BMI 29.2
[2021-01-02 10:31] VITALS: BP 118/64; PULSE 85; RESP 16; TEMP 36.6; O2SAT 97
[2021-01-02] MEDS: 0.9% NaCl PICC Flush IV ×2 (10:35→12:15)
[2021-01-02] MEDS: 0.9% NaCl IVPB Med Flush (250 mL) 15 ML IV (10:35)
[2021-01-02 12:18] VITALS: BP 114/67; PULSE 82; RESP 16; TEMP 36.6; O2SAT 98
== END ==
PROVIDERS: PCP Family Medicine Geriatric Medicine; Referring Provider Internal Medicine Infectious Disease; Visit Provider Internal Medicine Infectious Disease
DX: M86.9 Osteomyelitis, unspecified (principal); E11.628 Type 2 diabetes mellitus with other skin complications
CPT/HCPCS: 96365; J7050; A4216

== ENCOUNTER 2021-01-03 10:08 | Outpatient (CLI) | payer MEDICARE, MEDICAID, SELFPAY ==
[2020-12-30 10:37] VITALS: BMI 29.2
[2021-01-01 10:15] VITALS: BMI 29.2
[2021-01-03] MEDS: 0.9% Saline Lock 10 ML Syringe IV (10:30)
== END 2021-01-03 12:53 | disposition home or self-care (01) ==
LOC: MEDOUTP 10:09 → MS3 10:11
PROVIDERS: PCP Family Medicine Geriatric Medicine; Referring Provider Internal Medicine Infectious Disease; Visit Provider Internal Medicine Infectious Disease
DX: M86.9 Osteomyelitis, unspecified (principal); E11.628 Type 2 diabetes mellitus with other skin complications
CPT/HCPCS: 96365; 96366; J7050; A4216

== ENCOUNTER 2021-01-04 10:20 | Outpatient (CLI) | payer MEDICARE, MEDICAID, SELFPAY ==
[2020-12-30 10:37] VITALS: BMI 29.2
[2021-01-01 10:15] VITALS: BMI 29.2
[2021-01-04] MEDS: 0.9% Saline Lock 10 ML Syringe IV ×2 (10:34→12:05)
[2021-01-04 10:52] VITALS: BP 91/53; PULSE 82; RESP 18; TEMP 36.4; O2SAT 98
== END 2021-01-04 12:05 | disposition home or self-care (01) ==
LOC: MEDOUTP 10:20 → MS3 10:21
PROVIDERS: PCP Family Medicine Geriatric Medicine; Referring Provider Internal Medicine Infectious Disease; Visit Provider Internal Medicine Infectious Disease
DX: M86.9 Osteomyelitis, unspecified (principal); E11.628 Type 2 diabetes mellitus with other skin complications
CPT/HCPCS: 96365; J7050; A4216

== ENCOUNTER → 2021-01-05 10:15 | Outpatient (CLI) | payer MEDICARE, MEDICAID, SELFPAY ==
[2020-12-30 10:37] VITALS: BMI 29.2
[2021-01-01 10:15] VITALS: BMI 29.2
[2021-01-05] MEDS: 0.9% NaCl PICC Flush IV ×2 (10:25→12:06)
[2021-01-05] MEDS: 0.9% NaCl IVPB Med Flush (250 mL) 15 ML IV (10:34)
[2021-01-05 10:36] VITALS: BP 86/55; PULSE 85; RESP 16; TEMP 36.2; O2SAT 97; BMI 29.2
[2021-01-05 12:07] VITALS: BP 106/61; PULSE 78; RESP 16; TEMP 36; O2SAT 98
== END ==
PROVIDERS: PCP Family Medicine Geriatric Medicine; Referring Provider Internal Medicine Infectious Disease; Visit Provider Internal Medicine Infectious Disease
DX: M86.9 Osteomyelitis, unspecified (principal); E11.628 Type 2 diabetes mellitus with other skin complications
CPT/HCPCS: 96365; 36592; J7050; A4216

== ENCOUNTER → 2021-01-06 10:12 | Outpatient (CLI) | payer MEDICARE, MEDICAID, SELFPAY ==
[2020-12-30 10:37] VITALS: BMI 29.2
[2021-01-05 10:36] VITALS: BMI 29.2
[2021-01-06 10:27] VITALS: BP 92/66; PULSE 122; RESP 14; TEMP 36.1; O2SAT 100; BMI 29.2
[2021-01-06] MEDS: 0.9% NaCl IVPB Med Flush (250 mL) 15 ML IV (10:34)
[2021-01-06] MEDS: 0.9% NaCl PICC Flush IV ×2 (10:34→12:16)
[2021-01-06 12:17] VITALS: BP 127/67; PULSE 107; RESP 16; TEMP 35.9; O2SAT 99
== END ==
PROVIDERS: PCP Family Medicine Geriatric Medicine; Referring Provider Internal Medicine Infectious Disease; Visit Provider Internal Medicine Infectious Disease
DX: M86.9 Osteomyelitis, unspecified (principal); E11.628 Type 2 diabetes mellitus with other skin complications
CPT/HCPCS: 96365; J7050; A4216

== ENCOUNTER → 2021-01-07 10:15 | Outpatient (CLI) | payer MEDICARE, MEDICAID, SELFPAY ==
[2020-12-30 10:37] VITALS: BMI 29.2
[2021-01-06 10:27] VITALS: BMI 29.2
[2021-01-07] MEDS: 0.9% NaCl PICC Flush IV ×2 (10:26→12:11)
[2021-01-07] MEDS: 0.9% NaCl IVPB Med Flush (250 mL) 15 ML IV (10:26)
[2021-01-07 10:28] VITALS: BP 130/66; PULSE 90; RESP 16; TEMP 36.6; O2SAT 100
[2021-01-07 12:10] VITALS: BP 138/67; PULSE 79; RESP 18; TEMP 36.2; O2SAT 100
== END ==
PROVIDERS: PCP Family Medicine Geriatric Medicine; Referring Provider Internal Medicine Infectious Disease; Visit Provider Internal Medicine Infectious Disease
DX: M86.9 Osteomyelitis, unspecified (principal); E11.628 Type 2 diabetes mellitus with other skin complications
CPT/HCPCS: 96365; 96366; J7050; A4216

== ENCOUNTER → 2021-01-08 10:14 | Outpatient (CLI) | payer MEDICARE, MEDICAID, SELFPAY ==
[2020-12-30 10:37] VITALS: BMI 29.2
[2021-01-06 10:27] VITALS: BMI 29.2
[2021-01-08 10:24] VITALS: BP 93/51; PULSE 97; RESP 16; TEMP 35.9; O2SAT 99
[2021-01-08] MEDS: 0.9% NaCl IVPB Med Flush (250 mL) 15 ML IV (10:28)
[2021-01-08] MEDS: 0.9% NaCl PICC Flush IV ×2 (10:28→11:55)
== END ==
PROVIDERS: PCP Family Medicine Geriatric Medicine; Referring Provider Internal Medicine Infectious Disease; Visit Provider Internal Medicine Infectious Disease
DX: M86.9 Osteomyelitis, unspecified (principal); E11.628 Type 2 diabetes mellitus with other skin complications
CPT/HCPCS: 96365; J7050; A4216

== ENCOUNTER → 2021-01-09 10:12 | Outpatient (CLI) | payer MEDICARE, MEDICAID, SELFPAY ==
[2020-12-30 10:37] VITALS: BMI 29.2
[2021-01-06 10:27] VITALS: BMI 29.2
[2021-01-09 10:26] VITALS: BP 123/60; PULSE 87; RESP 16; TEMP 36.6; O2SAT 99; BMI 29.2
[2021-01-09] MEDS: 0.9% NaCl PICC Flush IV ×2 (10:31→12:11)
[2021-01-09] MEDS: 0.9% NaCl IVPB Med Flush (250 mL) 15 ML IV (10:31)
[2021-01-09 12:14] VITALS: BP 102/59; PULSE 83; RESP 16; TEMP 36.4; O2SAT 100
== END ==
PROVIDERS: PCP Family Medicine Geriatric Medicine; Referring Provider Internal Medicine Infectious Disease; Visit Provider Internal Medicine Infectious Disease
DX: M86.9 Osteomyelitis, unspecified (principal); E11.628 Type 2 diabetes mellitus with other skin complications
CPT/HCPCS: 96365; 96366; J7050; A4216

== ENCOUNTER 2021-01-10 10:09 | Outpatient (CLI) | payer MEDICARE, MEDICAID, SELFPAY ==
[2020-12-30 10:37] VITALS: BMI 29.2
[2021-01-09 10:26] VITALS: BMI 29.2
[2021-01-10] MEDS: 0.9% Saline Lock 10 ML Syringe IV ×2 (10:20→11:52)
== END 2021-01-10 11:56 | disposition home or self-care (01) ==
LOC: MEDOUTP 10:09 → MS3 10:11
PROVIDERS: PCP Family Medicine Geriatric Medicine; Referring Provider Internal Medicine Infectious Disease; Visit Provider Internal Medicine Infectious Disease
DX: M86.9 Osteomyelitis, unspecified (principal); E11.628 Type 2 diabetes mellitus with other skin complications
CPT/HCPCS: 96365; J7050; A4216

== ENCOUNTER 2021-01-11 10:23 | Outpatient (CLI) | payer MEDICARE, MEDICAID, SELFPAY ==
[2020-12-30 10:37] VITALS: BMI 29.2
[2021-01-09 10:26] VITALS: BMI 29.2
[2021-01-11 10:39] VITALS: BP 107/61; PULSE 84; RESP 16; TEMP 36.6; O2SAT 98
[2021-01-11] MEDS: 0.9% Saline Lock 10 ML Syringe IV (11:49)
== END 2021-01-11 11:49 | disposition home or self-care (01) ==
LOC: MEDOUTP 10:25 → MS3 10:25
PROVIDERS: PCP Family Medicine Geriatric Medicine; Referring Provider Internal Medicine Infectious Disease; Visit Provider Internal Medicine Infectious Disease
DX: M86.9 Osteomyelitis, unspecified (principal); E11.628 Type 2 diabetes mellitus with other skin complications
CPT/HCPCS: 96365; A4216

== ENCOUNTER → 2021-01-12 10:07 | Outpatient (CLI) | payer MEDICARE, MEDICAID, SELFPAY ==
[2020-12-30 10:37] VITALS: BMI 29.2
[2021-01-09 10:26] VITALS: BMI 29.2
[2021-01-12] MEDS: 0.9% NaCl PICC Flush IV ×2 (10:31→12:03)
[2021-01-12] MEDS: 0.9% NaCl IVPB Med Flush (250 mL) 15 ML IV (10:31)
[2021-01-12 10:43] LABS: Hematocrit 34.3 % (40-54); Hemoglobin 10.3 g/dL (13.0-16.5); Mean Corpuscular Hgb 25.2 pg (27.0-32.0); Mean Corpuscular Volume 84.1 fL (80-94); Mean Platelet Vol. 9.9 fl (6.2-12.0); Platelet Count 253 K/mm3 (150-450); RBC Distribution Width CV 18.6 % (11.6-14.6); RBC Distribution Width SD 56.5 fl (35.1-43.9); Red Blood Count 4.08 M/mm3 (4.6-6.2); White Blood Count 6.6 K/mm3 (4.4-11.0)
[2021-01-12 10:59] LABS: ALB/GLOB Ratio 1.2 RATIO (0.9-2.4); AST(SGOT) 16 U/L (15-37); Alanine Aminotransfer ALT/SGPT 18 U/L (16-61); Albumin, Serum 3.8 g/dL (3.2-5.0); Alkaline Phosphatase 112 U/L (45-117); Anion Gap 8 (5-15); BUN 11 mg/dL (7-18); BUN/Creat Ratio 13.4 RATIO (10-20); CRP < 2.90 mg/L (0.0-3.0); Calcium,Total 8.6 mg/dL (8.5-10.1); Chloride 109 mmol/L (98-107); Creatinine, Serum 0.82 mg/dL (0.70-1.30); EST Glomerular Filtration Rate 99 mL/min (>60); Est Glom Filt Rate - Afr Amer 120 mL/min (>60); Globulin 3.3 g/dL (2.2-4.2); Glucose 227 mg/dL (74-106); Potassium 4.2 mmol/L (3.5-5.1); Protein, Total 7.1 g/dL (6.4-8.2); Sodium Level 140 mmol/L (136-145)
[2021-01-12 12:05] VITALS: BP 146/68; PULSE 101; RESP 16; TEMP 36.6
[2021-01-12 18:40] LABS: Xtra Tube EP Lab EXTRA TUBE
== END ==
PROVIDERS: PCP Family Medicine Geriatric Medicine; Referring Provider Internal Medicine Infectious Disease; Visit Provider Internal Medicine Infectious Disease
DX: M86.9 Osteomyelitis, unspecified (principal); E11.628 Type 2 diabetes mellitus with other skin complications
CPT/HCPCS: 96365; 36592; 80053; 85027; 86140; J7050; A4216

== ENCOUNTER → 2021-01-13 10:14 | Outpatient (CLI) | payer MEDICARE, MEDICAID, SELFPAY ==
[2020-12-30 10:37] VITALS: BMI 29.2
[2021-01-09 10:26] VITALS: BMI 29.2
[2021-01-13] MEDS: 0.9% NaCl IVPB Med Flush (250 mL) 15 ML IV (10:29)
[2021-01-13] MEDS: 0.9% NaCl PICC Flush IV ×2 (10:30→12:14)
[2021-01-13 10:34] VITALS: BP 115/61; PULSE 96; RESP 16; TEMP 36.3; O2SAT 98
[2021-01-13 12:16] VITALS: BP 127/68; PULSE 84; RESP 16; TEMP 36.5; O2SAT 98
== END ==
PROVIDERS: PCP Family Medicine Geriatric Medicine; Referring Provider Internal Medicine Infectious Disease; Visit Provider Internal Medicine Infectious Disease
DX: M86.9 Osteomyelitis, unspecified (principal); E11.628 Type 2 diabetes mellitus with other skin complications
CPT/HCPCS: 96365; J7050; A4216

== ENCOUNTER → 2021-01-14 10:07 | Outpatient (CLI) | payer MEDICARE, MEDICAID, SELFPAY ==
[2020-12-30 10:37] VITALS: BMI 29.2
[2021-01-09 10:26] VITALS: BMI 29.2
[2021-01-14 10:17] VITALS: BP 127/66; PULSE 117; RESP 16; TEMP 35.8; O2SAT 98; BMI 29.2
[2021-01-14] MEDS: 0.9% NaCl PICC Flush IV ×2 (10:22→11:53)
[2021-01-14] MEDS: 0.9% NaCl IVPB Med Flush (250 mL) 15 ML IV (10:23)
[2021-01-14 11:55] VITALS: BP 125/67; PULSE 102; RESP 16; TEMP 36; O2SAT 98
== END ==
PROVIDERS: PCP Family Medicine Geriatric Medicine; Referring Provider Internal Medicine Infectious Disease; Visit Provider Internal Medicine Infectious Disease
DX: M86.9 Osteomyelitis, unspecified (principal); E11.628 Type 2 diabetes mellitus with other skin complications
CPT/HCPCS: 96365; J7050; A4216

== ENCOUNTER → 2021-01-15 10:12 | Outpatient (CLI) | payer MEDICARE, MEDICAID, SELFPAY ==
[2020-12-30 10:37] VITALS: BMI 29.2
[2021-01-14 10:17] VITALS: BMI 29.2
[2021-01-15] MEDS: 0.9% NaCl IVPB Med Flush (250 mL) 15 ML IV (10:17)
[2021-01-15] MEDS: 0.9% NaCl PICC Flush IV ×2 (10:17→11:36)
[2021-01-15 10:18] VITALS: BP 102/63; PULSE 89; RESP 18; TEMP 35.9; O2SAT 96; BMI 29.2
[2021-01-15 11:31] VITALS: BP 116/70; PULSE 82; RESP 16; TEMP 36.1; O2SAT 97
== END ==
PROVIDERS: PCP Family Medicine Geriatric Medicine; Referring Provider Internal Medicine Infectious Disease; Visit Provider Internal Medicine Infectious Disease
DX: M86.9 Osteomyelitis, unspecified (principal); E11.628 Type 2 diabetes mellitus with other skin complications
CPT/HCPCS: 96365; J7050; A4216

== ENCOUNTER → 2021-01-16 10:15 | Outpatient (CLI) | payer MEDICARE, MEDICAID, SELFPAY ==
[2020-12-30 10:37] VITALS: BMI 29.2
[2021-01-15 10:18] VITALS: BMI 29.2
[2021-01-16] MEDS: 0.9% NaCl IVPB Med Flush (250 mL) 15 ML IV (10:24)
[2021-01-16] MEDS: 0.9% NaCl PICC Flush IV ×2 (10:24→11:55)
[2021-01-16 10:32] VITALS: BP 115/67; PULSE 110; RESP 16; TEMP 36.6; O2SAT 100
== END ==
PROVIDERS: PCP Family Medicine Geriatric Medicine; Referring Provider Internal Medicine Infectious Disease; Visit Provider Internal Medicine Infectious Disease
DX: M86.9 Osteomyelitis, unspecified (principal); E11.628 Type 2 diabetes mellitus with other skin complications
CPT/HCPCS: 96365; J7050; A4216

== ENCOUNTER 2021-01-17 10:08 | Outpatient (CLI) | payer MEDICARE, MEDICAID, SELFPAY ==
[2020-12-30 10:37] VITALS: BMI 29.2
[2021-01-15 10:18] VITALS: BMI 29.2
[2021-01-17 10:19] VITALS: BP 100/57; BP 77/39; PULSE 96; RESP 18; TEMP 36.6; O2SAT 97
--- NOTE | 2021-01-17 10:27 | NURSING ---
pt arrived to unit. found sitting in recliner. noted to be slightly diaphoretic. pt states feels that was from walking in. a&Ox3. breathing even/unlabored. picc line rt ac. pt states he is diabetic but states he does not have a meter working at home. states he normally only checks his glucose once a day or every other day. OT checked. SBP noted to be in 70's while sitting in chair. denies dizziness at present but assisted pt to bed. BP rechecked. pt denies all symptoms at present. call light within reach.
[2021-01-17 10:35] VITALS: BMI 28.8
--- NOTE | 2021-01-17 10:40 | NURSING ---
awaiting on medication from pharmacy. No s/s of distress noted. discussed getting accucheck meter with pt, encouraged pt to get Over the counter meter from store until he can get script for meter from PCP.
[2021-01-17 10:41] LABS: Bedside Glucose 247 mg/dL (70-110)
[2021-01-17] MEDS: 0.9% Saline Lock 10 ML Syringe IV ×2 (10:45→12:15)
[2021-01-17 12:15] VITALS: BP 131/77; PULSE 79; RESP 18; TEMP 36.1; O2SAT 96
== END 2021-01-17 12:21 | disposition home or self-care (01) ==
LOC: MEDOUTP 10:09 → MS3 10:14
PROVIDERS: PCP Family Medicine Geriatric Medicine; Referring Provider Internal Medicine Infectious Disease; Visit Provider Internal Medicine Infectious Disease
DX: M86.9 Osteomyelitis, unspecified (principal); E11.628 Type 2 diabetes mellitus with other skin complications
CPT/HCPCS: 96365; 96366; 82962; J7050; A4216

== ENCOUNTER 2021-01-18 10:10 | Outpatient (CLI) | payer MEDICARE, MEDICAID, SELFPAY ==
[2020-12-30 10:37] VITALS: BMI 29.2
[2021-01-17 10:35] VITALS: BMI 28.8
[2021-01-18] MEDS: 0.9% Saline Lock 10 ML Syringe IV ×2 (10:30→12:16)
== END 2021-01-18 12:33 | disposition home or self-care (01) ==
LOC: MEDOUTP 10:10 → MS3 10:11
PROVIDERS: PCP Family Medicine Geriatric Medicine; Referring Provider Internal Medicine Infectious Disease; Visit Provider Internal Medicine Infectious Disease
DX: M86.9 Osteomyelitis, unspecified (principal); E11.628 Type 2 diabetes mellitus with other skin complications
CPT/HCPCS: 96365; J7050; A4216

== ENCOUNTER 2021-01-19 10:12 | Outpatient (CLI) | payer MEDICARE, MEDICAID, SELFPAY ==
[2020-12-30 10:37] VITALS: BMI 29.2
[2021-01-19] MEDS: 0.9% NaCl PICC Flush IV ×2 (10:34→12:07)
[2021-01-19 10:39] VITALS: BP 96/54; PULSE 102; RESP 18; TEMP 36.5; O2SAT 97
== END 2021-01-19 12:25 | disposition home or self-care (01) ==
LOC: MEDOUTP 10:13 → MS3 10:14
PROVIDERS: PCP Family Medicine Geriatric Medicine; Referring Provider Internal Medicine Infectious Disease; Visit Provider Internal Medicine Infectious Disease
DX: M86.9 Osteomyelitis, unspecified (principal); E11.628 Type 2 diabetes mellitus with other skin complications
CPT/HCPCS: 96365; 96366; A4216

== ENCOUNTER → 2021-01-20 10:09 | Outpatient (CLI) | payer MEDICARE, MEDICAID, SELFPAY ==
[2020-12-30 10:37] VITALS: BMI 29.2
[2021-01-17 10:35] VITALS: BMI 28.8
[2021-01-20] MEDS: 0.9% NaCl PICC Flush IV ×3 (10:25→13:02)
[2021-01-20] MEDS: 0.9% NaCl IVPB Med Flush (250 mL) 15 ML IV (10:35)
[2021-01-20 10:38] VITALS: BP 84/50; PULSE 64; RESP 18; TEMP 36.1; O2SAT 98; BMI 28.7
[2021-01-20 11:00] LABS: Absolute Lymphocyte Count 2.31 X10^3/uL (0.83-4.51); Absolute Neutrophil Count 3.2 X10^3/uL (2.0-7.7); Basophil# 0.05 X10^3/uL; Basophil% 0.8 % (0-1); Eosinophil# 0.13 X10^3/uL; Eosinophils% 2.1 % (0-5); Hematocrit 37.6 % (40-54); Hemoglobin 11.4 g/dL (13.0-16.5); Lymphocyte # 2.31 X10^3/ul (0.83-4.51); Mean Corp Hgb Conc 30.3 g/dL (32-36); Mean Corpuscular Hgb 26.1 pg (27.0-32.0); Mean Platelet Vol. 10.2 fl (6.2-12.0); Monocyte# 0.38 X10^3/uL; Monocyte% 6.3 % (0-10); NRBC Flagged by Analyzer 0 % (0-5); Neutrophil # 3.19 X10^3/uL (2.7-7.7); Neutrophil % 52.5 % (47-70); Platelet Count 258 K/mm3 (150-450); RBC Distribution Width CV 19.1 % (11.6-14.6); RBC Distribution Width SD 60.1 fl (35.1-43.9); Red Blood Count 4.37 M/mm3 (4.6-6.2); White Blood Count 6.1 K/mm3 (4.4-11.0)
[2021-01-20 11:14] LABS: ALB/GLOB Ratio 1.1 RATIO (0.9-2.4); AST(SGOT) 17 U/L (15-37); Alanine Aminotransfer ALT/SGPT 19 U/L (16-61); Albumin, Serum 3.6 g/dL (3.2-5.0); Alkaline Phosphatase 107 U/L (45-117); Anion Gap 3 (5-15); BUN 14 mg/dL (7-18); BUN/Creat Ratio 15.2 RATIO (10-20); CRP 3.17 mg/L (0.0-3.0); Calcium,Total 8.6 mg/dL (8.5-10.1); Chloride 110 mmol/L (98-107); Creatinine, Serum 0.92 mg/dL (0.70-1.30); EST Glomerular Filtration Rate 87 mL/min (>60); Est Glom Filt Rate - Afr Amer 105 mL/min (>60); Estimated Creatinine Clearance 81.85 ml/min; Globulin 3.3 g/dL (2.2-4.2); Glucose 254 mg/dL (74-106); Potassium 4.2 mmol/L (3.5-5.1); Protein, Total 6.9 g/dL (6.4-8.2); Sodium Level 138 mmol/L (136-145)
[2021-01-20 11:51] VITALS: BP 90/56; PULSE 77; RESP 18; TEMP 36.1
[2021-01-20 18:55] LABS: Xtra Tube EP Lab EXTRA TUBE
== END ==
PROVIDERS: PCP Family Medicine Geriatric Medicine; Referring Provider Internal Medicine Infectious Disease; Visit Provider Internal Medicine Infectious Disease
DX: M86.9 Osteomyelitis, unspecified (principal); E11.628 Type 2 diabetes mellitus with other skin complications
CPT/HCPCS: 96365; 96366; 36592; 80053; 85025; 86140; J7050; A4216

== ENCOUNTER → 2021-01-21 10:14 | Outpatient (CLI) | payer MEDICARE, MEDICAID, SELFPAY ==
[2020-12-30 10:37] VITALS: BMI 29.2
[2021-01-20 10:38] VITALS: BMI 28.7
[2021-01-21] MEDS: 0.9% NaCl PICC Flush IV ×2 (10:27→11:56)
[2021-01-21] MEDS: 0.9% NaCl IVPB Med Flush (250 mL) 15 ML IV (10:28)
[2021-01-21 10:30] VITALS: BP 110/63; PULSE 109; RESP 16; TEMP 36.4; O2SAT 98
== END ==
PROVIDERS: PCP Family Medicine Geriatric Medicine; Referring Provider Internal Medicine Infectious Disease; Visit Provider Internal Medicine Infectious Disease
DX: M86.9 Osteomyelitis, unspecified (principal); E11.628 Type 2 diabetes mellitus with other skin complications
CPT/HCPCS: 96365; J7050; A4216

== ENCOUNTER → 2021-01-22 10:09 | Outpatient (CLI) | payer MEDICARE, MEDICAID, SELFPAY ==
[2020-12-30 10:37] VITALS: BMI 29.2
[2021-01-20 10:38] VITALS: BMI 28.7
[2021-01-22] MEDS: 0.9% NaCl PICC Flush IV ×2 (10:17→11:50)
[2021-01-22] MEDS: 0.9% NaCl IVPB Med Flush (250 mL) 15 ML IV (10:18)
[2021-01-22 10:25] VITALS: BP 90/56; PULSE 83; RESP 18; TEMP 36.2; O2SAT 98; BMI 28.7
[2021-01-22 11:50] VITALS: BP 101/65; PULSE 82
== END ==
PROVIDERS: PCP Family Medicine Geriatric Medicine; Referring Provider Internal Medicine Infectious Disease; Visit Provider Internal Medicine Infectious Disease
DX: M86.9 Osteomyelitis, unspecified (principal); E11.628 Type 2 diabetes mellitus with other skin complications
CPT/HCPCS: 96365; 96366; J7050; A4216

== ENCOUNTER → 2021-01-23 10:14 | Outpatient (CLI) | payer MEDICARE, MEDICAID, SELFPAY ==
[2020-12-30 10:37] VITALS: BMI 29.2
[2021-01-22 10:25] VITALS: BMI 28.7
[2021-01-23] MEDS: 0.9% NaCl PICC Flush IV ×2 (10:22→11:53)
[2021-01-23 10:23] VITALS: BP 102/59; PULSE 90; RESP 18; TEMP 35.5; O2SAT 97; BMI 28.7
[2021-01-23] MEDS: 0.9% NaCl IVPB Med Flush (250 mL) 15 ML IV (10:30)
[2021-01-23 11:55] VITALS: BP 102/65; PULSE 68
== END ==
PROVIDERS: PCP Family Medicine Geriatric Medicine; Referring Provider Internal Medicine Infectious Disease; Visit Provider Internal Medicine Infectious Disease
DX: M86.9 Osteomyelitis, unspecified (principal); E11.628 Type 2 diabetes mellitus with other skin complications
CPT/HCPCS: 96365; J7050; A4216

== ENCOUNTER 2021-01-24 09:59 | Outpatient (CLI) | payer MEDICARE, MEDICAID, SELFPAY ==
[2020-12-30 10:37] VITALS: BMI 29.2
[2021-01-23 10:23] VITALS: BMI 28.7
[2021-01-24] MEDS: 0.9% Saline Lock 10 ML Syringe IV (10:31)
[2021-01-24 10:33] VITALS: BP 66/41; PULSE 88; RESP 18; O2SAT 97
[2021-01-24 10:57] VITALS: BP 75/37
[2021-01-24 12:07] VITALS: BP 93/49; PULSE 79; RESP 18
[2021-01-24 12:48] VITALS: BP 95/55; PULSE 89
[2021-01-24] MEDS: 0.9% Normal Saline 1,000 ML 999 ML IV (12:51)
--- NOTE | 2021-01-24 12:57 | NURSING ---
spoke with DR. Hernandez about pts low BP during his outpt antibiotic. order given for 1L bolus and to call back if blood pressure systolic number is below 100.
[2021-01-24 14:08] VITALS: BP 109/48; PULSE 75; RESP 18
== END 2021-01-24 14:05 | disposition home or self-care (01) ==
LOC: MEDOUTP 10:00 → MS3 10:00
PROVIDERS: PCP Family Medicine Geriatric Medicine; Referring Provider Internal Medicine Infectious Disease; Visit Provider Internal Medicine Infectious Disease
DX: M86.9 Osteomyelitis, unspecified (principal); E11.628 Type 2 diabetes mellitus with other skin complications
CPT/HCPCS: 96365; J7030; J7050; A4216

== ENCOUNTER 2021-01-25 10:12 | Outpatient (CLI) | payer MEDICARE, MEDICAID, SELFPAY ==
[2020-12-30 10:37] VITALS: BMI 29.2
[2021-01-23 10:23] VITALS: BMI 28.7
[2021-01-25 10:20] VITALS: BP 128/72; PULSE 79; RESP 18; O2SAT 100
[2021-01-25] MEDS: 0.9% NaCl IVPB Med Flush (250 mL) 100 ML IV (10:21)
[2021-01-25] MEDS: 0.9% NaCl PICC Flush IV ×2 (10:21→12:00)
[2021-01-25 12:05] VITALS: BP 168/82; PULSE 76
== END 2021-01-25 12:12 | disposition home or self-care (01) ==
LOC: MEDOUTP 10:12 → MS3 10:13
PROVIDERS: PCP Family Medicine Geriatric Medicine; Referring Provider Internal Medicine Infectious Disease; Visit Provider Internal Medicine Infectious Disease
DX: M86.9 Osteomyelitis, unspecified (principal); E11.628 Type 2 diabetes mellitus with other skin complications
CPT/HCPCS: 96365; J7050; A4216

== ENCOUNTER → 2021-01-26 10:06 | Outpatient (CLI) | payer MEDICARE, MEDICAID, SELFPAY ==
[2020-12-30 10:37] VITALS: BMI 29.2
[2021-01-23 10:23] VITALS: BMI 28.7
[2021-01-26 10:13] VITALS: BP 125/73; PULSE 112; RESP 16; TEMP 35.9; O2SAT 98; BMI 28.7
[2021-01-26] MEDS: 0.9% NaCl IVPB Med Flush (250 mL) 15 ML IV (10:16)
[2021-01-26] MEDS: 0.9% NaCl PICC Flush IV ×2 (10:16→12:32)
[2021-01-26 10:47] LABS: Hematocrit 34.5 % (40-54); Hemoglobin 10.7 g/dL (13.0-16.5); Mean Corpuscular Hgb 26.4 pg (27.0-32.0); Mean Corpuscular Volume 85.2 fL (80-94); Mean Platelet Vol. 9.8 fl (6.2-12.0); Platelet Count 236 K/mm3 (150-450); RBC Distribution Width CV 18.8 % (11.6-14.6); RBC Distribution Width SD 59.4 fl (35.1-43.9); Red Blood Count 4.05 M/mm3 (4.6-6.2); White Blood Count 5.3 K/mm3 (4.4-11.0)
[2021-01-26 11:02] LABS: ALB/GLOB Ratio 1.1 RATIO (0.9-2.4); AST(SGOT) 23 U/L (15-37); Alanine Aminotransfer ALT/SGPT 21 U/L (16-61); Albumin, Serum 3.7 g/dL (3.2-5.0); Alkaline Phosphatase 107 U/L (45-117); Anion Gap 5 (5-15); BUN 9 mg/dL (7-18); BUN/Creat Ratio 11.8 RATIO (10-20); CRP 3.42 mg/L (0.0-3.0); Calcium,Total 8.8 mg/dL (8.5-10.1); Chloride 109 mmol/L (98-107); Creatinine, Serum 0.76 mg/dL (0.70-1.30); EST Glomerular Filtration Rate 108 mL/min (>60); Est Glom Filt Rate - Afr Amer 131 mL/min (>60); Globulin 3.3 g/dL (2.2-4.2); Glucose 179 mg/dL (74-106); Potassium 3.9 mmol/L (3.5-5.1); Sodium Level 139 mmol/L (136-145)
[2021-01-26 12:51] VITALS: BP 106/58; PULSE 98; RESP 16; TEMP 36.4; O2SAT 100
== END ==
PROVIDERS: PCP Family Medicine Geriatric Medicine; Referring Provider Internal Medicine Infectious Disease; Visit Provider Internal Medicine Infectious Disease
DX: M86.9 Osteomyelitis, unspecified (principal); E11.628 Type 2 diabetes mellitus with other skin complications
CPT/HCPCS: 96365; 80053; 85027; 86140; J7050; A4216

== ENCOUNTER → 2021-01-27 09:56 | Outpatient (CLI) | payer MEDICARE, MEDICAID, SELFPAY ==
[2020-12-30 10:37] VITALS: BMI 29.2
[2021-01-26 10:13] VITALS: BMI 28.7
[2021-01-27] MEDS: 0.9% NaCl PICC Flush IV ×2 (10:21→11:49)
[2021-01-27] MEDS: 0.9% NaCl IVPB Med Flush (250 mL) 15 ML IV (10:21)
[2021-01-27 10:23] VITALS: BP 101/53; PULSE 90; RESP 16; TEMP 36.2; O2SAT 98
[2021-01-27 11:45] VITALS: BP 96/57; PULSE 86; RESP 16; TEMP 36.1
== END ==
PROVIDERS: PCP Family Medicine Geriatric Medicine; Referring Provider Internal Medicine Infectious Disease; Visit Provider Internal Medicine Infectious Disease
DX: M86.9 Osteomyelitis, unspecified (principal); E11.628 Type 2 diabetes mellitus with other skin complications
CPT/HCPCS: 96365; 96366; J7050; A4216

== ENCOUNTER → 2021-01-28 10:09 | Outpatient (CLI) | payer MEDICARE, MEDICAID, SELFPAY ==
[2020-12-30 10:37] VITALS: BMI 29.2
[2021-01-26 10:13] VITALS: BMI 28.7
[2021-01-28] MEDS: 0.9% NaCl PICC Flush IV ×2 (10:21→11:58)
[2021-01-28] MEDS: 0.9% NaCl IVPB Med Flush (250 mL) 15 ML IV (10:21)
[2021-01-28 10:22] VITALS: BP 131/74; PULSE 114; RESP 16; TEMP 36.5; O2SAT 98
[2021-01-28 11:55] VITALS: BP 108/81; PULSE 97; RESP 16; TEMP 36.3; O2SAT 100
== END ==
PROVIDERS: PCP Family Medicine Geriatric Medicine; Referring Provider Internal Medicine Infectious Disease; Visit Provider Internal Medicine Infectious Disease
DX: M86.9 Osteomyelitis, unspecified (principal); E11.628 Type 2 diabetes mellitus with other skin complications
CPT/HCPCS: 96365; 96366; J7050; A4216

== ENCOUNTER → 2021-01-29 10:17 | Outpatient (CLI) | payer MEDICARE, MEDICAID, SELFPAY ==
[2020-12-30 10:37] VITALS: BMI 29.2
[2021-01-26 10:13] VITALS: BMI 28.7
[2021-01-29 10:37] VITALS: BP 127/67; PULSE 87; RESP 16; TEMP 36.6; O2SAT 98; BMI 28.7
[2021-01-29] MEDS: 0.9% NaCl PICC Flush IV ×2 (10:39→12:15)
[2021-01-29] MEDS: 0.9% NaCl IVPB Med Flush (250 mL) 15 ML IV (10:43)
[2021-01-29 12:18] VITALS: BP 130/63; PULSE 83; RESP 16; O2SAT 98
== END ==
PROVIDERS: PCP Family Medicine Geriatric Medicine; Referring Provider Internal Medicine Infectious Disease; Visit Provider Internal Medicine Infectious Disease
DX: M86.9 Osteomyelitis, unspecified (principal); E11.628 Type 2 diabetes mellitus with other skin complications
CPT/HCPCS: 96365; J7050; A4216

== ENCOUNTER → 2021-01-30 10:10 | Outpatient (CLI) | payer MEDICARE, MEDICAID, SELFPAY ==
[2020-12-30 10:37] VITALS: BMI 29.2
[2021-01-29 10:37] VITALS: BMI 28.7
[2021-01-30] MEDS: 0.9% NaCl PICC Flush IV ×2 (10:38→12:16)
[2021-01-30] MEDS: 0.9% NaCl IVPB Med Flush (250 mL) 15 ML IV (10:39)
[2021-01-30 10:45] VITALS: BP 92/53; PULSE 85; RESP 18; TEMP 36.2; O2SAT 98
[2021-01-30 12:12] VITALS: BP 117/61; PULSE 78; RESP 18; TEMP 36.1; O2SAT 100
== END ==
PROVIDERS: PCP Family Medicine Geriatric Medicine; Referring Provider Internal Medicine Infectious Disease; Visit Provider Internal Medicine Infectious Disease
DX: M86.9 Osteomyelitis, unspecified (principal); E11.628 Type 2 diabetes mellitus with other skin complications
CPT/HCPCS: 96365; J7050; A4216

== ENCOUNTER 2021-01-31 10:04 | Outpatient (CLI) | payer MEDICARE, MEDICAID, SELFPAY ==
[2020-12-30 10:37] VITALS: BMI 29.2
[2021-01-29 10:37] VITALS: BMI 28.7
[2021-01-31] MEDS: 0.9% Saline Lock 10 ML Syringe IV (10:24)
[2021-01-31 10:25] VITALS: BP 114/66; PULSE 112; RESP 18; TEMP 36.6; O2SAT 99
[2021-01-31 11:41] VITALS: BP 134/79; PULSE 102; RESP 18; TEMP 36.8; O2SAT 99
== END 2021-01-31 11:35 | disposition home or self-care (01) ==
LOC: MEDOUTP 10:05 → PCU 10:06
PROVIDERS: PCP Family Medicine Geriatric Medicine; Referring Provider Internal Medicine Infectious Disease; Visit Provider Internal Medicine Infectious Disease
DX: M86.9 Osteomyelitis, unspecified (principal); E11.628 Type 2 diabetes mellitus with other skin complications
CPT/HCPCS: 96365; J7050; A4216

== ENCOUNTER 2021-02-01 09:56 | Outpatient (CLI) | payer MEDICARE, MEDICAID, SELFPAY ==
[2020-12-30 10:37] VITALS: BMI 29.2
[2021-01-29 10:37] VITALS: BMI 28.7
[2021-02-01] MEDS: 0.9% Saline Lock 10 ML Syringe IV ×2 (10:16→11:25)
[2021-02-01 10:21] VITALS: BP 112/66; PULSE 101; RESP 16; TEMP 36.9; O2SAT 97
== END 2021-02-01 11:30 | disposition home or self-care (01) ==
LOC: MEDOUTP 09:58 → MS3 09:59
PROVIDERS: PCP Family Medicine Geriatric Medicine; Referring Provider Internal Medicine Infectious Disease; Visit Provider Internal Medicine Infectious Disease
DX: M86.9 Osteomyelitis, unspecified (principal); E11.628 Type 2 diabetes mellitus with other skin complications
CPT/HCPCS: 96365; J7050; A4216

== ENCOUNTER → 2021-02-02 10:11 | Outpatient (CLI) | payer MEDICARE, MEDICAID, SELFPAY ==
[2020-12-30 10:37] VITALS: BMI 29.2
[2021-01-29 10:37] VITALS: BMI 28.7
[2021-02-02] MEDS: 0.9% NaCl PICC Flush IV ×2 (10:20→12:14)
[2021-02-02 10:27] VITALS: BP 101/63; PULSE 86; RESP 18; TEMP 36.8; O2SAT 100
[2021-02-02] MEDS: 0.9% NaCl IVPB Med Flush (250 mL) 15 ML IV (10:32)
[2021-02-02 10:52] LABS: Hematocrit 38.9 % (40-54); Mean Corp Hgb Conc 30.8 g/dL (32-36); Mean Corpuscular Hgb 27.1 pg (27.0-32.0); Mean Corpuscular Volume 87.8 fL (80-94); Mean Platelet Vol. 9.8 fl (6.2-12.0); Platelet Count 245 K/mm3 (150-450); RBC Distribution Width SD 61.7 fl (35.1-43.9); Red Blood Count 4.43 M/mm3 (4.6-6.2); White Blood Count 5.6 K/mm3 (4.4-11.0)
[2021-02-02 11:08] LABS: ALB/GLOB Ratio 1.1 RATIO (0.9-2.4); AST(SGOT) 18 U/L (15-37); Alanine Aminotransfer ALT/SGPT 19 U/L (16-61); Albumin, Serum 3.8 g/dL (3.2-5.0); Alkaline Phosphatase 108 U/L (45-117); Anion Gap 1 (5-15); BUN 14 mg/dL (7-18); BUN/Creat Ratio 15.8 RATIO (10-20); CRP 6.39 mg/L (0.0-3.0); Calcium,Total 8.9 mg/dL (8.5-10.1); Chloride 112 mmol/L (98-107); Creatinine, Serum 0.89 mg/dL (0.70-1.30); EST Glomerular Filtration Rate 91 mL/min (>60); Est Glom Filt Rate - Afr Amer 110 mL/min (>60); Globulin 3.5 g/dL (2.2-4.2); Glucose 216 mg/dL (74-106); Potassium 4.7 mmol/L (3.5-5.1); Protein, Total 7.3 g/dL (6.4-8.2); Sodium Level 139 mmol/L (136-145)
[2021-02-02 11:41] VITALS: BP 106/57; PULSE 83; RESP 16; TEMP 36.4; O2SAT 97
[2021-02-02 12:14] VITALS: BP 106/57; PULSE 83; RESP 16; TEMP 36.4; O2SAT 97
[2021-02-02 18:49] LABS: Xtra Tube EP Lab EXTRA TUBE
== END ==
PROVIDERS: PCP Family Medicine Geriatric Medicine; Referring Provider Internal Medicine Infectious Disease; Visit Provider Internal Medicine Infectious Disease
DX: M86.9 Osteomyelitis, unspecified (principal); E11.628 Type 2 diabetes mellitus with other skin complications
CPT/HCPCS: 96365; 80053; 85027; 86140; J7050; A4216

== ENCOUNTER → 2021-02-03 10:12 | Outpatient (CLI) | payer MEDICARE, MEDICAID, SELFPAY ==
[2020-12-30 10:37] VITALS: BMI 29.2
[2021-01-29 10:37] VITALS: BMI 28.7
[2021-02-03] MEDS: 0.9% NaCl PICC Flush IV ×2 (10:17→11:58)
[2021-02-03] MEDS: 0.9% NaCl IVPB Med Flush (250 mL) 15 ML IV (10:18)
[2021-02-03 10:25] VITALS: BP 119/72; PULSE 120; RESP 16; TEMP 36.5; O2SAT 100
[2021-02-03 11:57] VITALS: BP 143/72; PULSE 106
== END ==
PROVIDERS: PCP Family Medicine Geriatric Medicine; Referring Provider Internal Medicine Infectious Disease; Visit Provider Internal Medicine Infectious Disease
DX: M86.9 Osteomyelitis, unspecified (principal); E11.628 Type 2 diabetes mellitus with other skin complications
CPT/HCPCS: 96365; 96366; J7050; A4216

== ENCOUNTER → 2021-02-04 10:04 | Outpatient (CLI) | payer MEDICARE, MEDICAID, SELFPAY ==
[2020-12-30 10:37] VITALS: BMI 29.2
[2021-01-29 10:37] VITALS: BMI 28.7
[2021-02-04 10:13] VITALS: BP 117/69; PULSE 119; RESP 18; TEMP 36.4; O2SAT 100; BMI 28.7
[2021-02-04] MEDS: 0.9% NaCl IVPB Med Flush (250 mL) 15 ML IV (10:38)
[2021-02-04] MEDS: 0.9% NaCl PICC Flush IV ×2 (10:38→12:12)
[2021-02-04 12:14] VITALS: BP 142/67; PULSE 103; RESP 16; TEMP 36.2; O2SAT 99
== END ==
PROVIDERS: PCP Family Medicine Geriatric Medicine; Referring Provider Internal Medicine Infectious Disease; Visit Provider Internal Medicine Infectious Disease
DX: M86.9 Osteomyelitis, unspecified (principal); E11.628 Type 2 diabetes mellitus with other skin complications
CPT/HCPCS: 96365; J7050; A4216

== ENCOUNTER → 2021-02-05 10:02 | Outpatient (CLI) | payer MEDICARE, MEDICAID, SELFPAY ==
[2020-12-30 10:37] VITALS: BMI 29.2
[2021-02-04 10:13] VITALS: BMI 28.7
[2021-02-05 10:15] VITALS: BP 116/63; PULSE 114; RESP 16; TEMP 36.4; O2SAT 99
[2021-02-05] MEDS: 0.9% NaCl PICC Flush IV ×2 (10:21→12:05)
[2021-02-05] MEDS: 0.9% NaCl IVPB Med Flush (250 mL) 15 ML IV (10:21)
[2021-02-05 11:56] VITALS: BP 125/72; PULSE 103; RESP 16; TEMP 36.2; O2SAT 98
== END ==
PROVIDERS: PCP Family Medicine Geriatric Medicine; Referring Provider Internal Medicine Infectious Disease; Visit Provider Internal Medicine Infectious Disease
DX: M86.9 Osteomyelitis, unspecified (principal)
CPT/HCPCS: 96365; 96366; J7050; A4216

== ENCOUNTER → 2021-02-06 10:09 | Outpatient (CLI) | payer MEDICARE, MEDICAID, SELFPAY ==
[2020-12-30 10:37] VITALS: BMI 29.2
[2021-02-04 10:13] VITALS: BMI 28.7
[2021-02-06] MEDS: 0.9% NaCl PICC Flush IV ×2 (10:15→11:52)
[2021-02-06 10:16] VITALS: BP 115/68; PULSE 81; RESP 16; TEMP 36.1; O2SAT 100; BMI 29.2
[2021-02-06] MEDS: 0.9% NaCl IVPB Med Flush (250 mL) 15 ML IV (10:16)
[2021-02-06 11:28] VITALS: BP 123/62; PULSE 80; RESP 16; TEMP 36.3
== END ==
PROVIDERS: PCP Family Medicine Geriatric Medicine; Referring Provider Internal Medicine Infectious Disease; Visit Provider Internal Medicine Infectious Disease
DX: M86.9 Osteomyelitis, unspecified (principal); E11.628 Type 2 diabetes mellitus with other skin complications
CPT/HCPCS: 96365; J7050; A4216

== ENCOUNTER 2021-02-07 09:53 | Outpatient (CLI) | payer MEDICARE, MEDICAID, SELFPAY ==
[2020-12-30 10:37] VITALS: BMI 29.2
[2021-02-06 10:16] VITALS: BMI 29.2
[2021-02-07] MEDS: 0.9% Saline Lock 10 ML Syringe IV (10:43)
[2021-02-07 10:45] VITALS: BP 113/65; PULSE 82; RESP 18; TEMP 36.6; O2SAT 98
== END 2021-02-07 12:12 | disposition home or self-care (01) ==
LOC: MEDOUTP 09:54 → PCU 09:54
PROVIDERS: PCP Family Medicine Geriatric Medicine; Referring Provider Internal Medicine Infectious Disease; Visit Provider Internal Medicine Infectious Disease
DX: M86.9 Osteomyelitis, unspecified (principal); E11.628 Type 2 diabetes mellitus with other skin complications
CPT/HCPCS: 96365; J7050; A4216

== ENCOUNTER 2021-02-08 10:20 | Outpatient (CLI) | payer MEDICARE, MEDICAID, SELFPAY ==
[2020-12-30 10:37] VITALS: BMI 29.2
[2021-02-06 10:16] VITALS: BMI 29.2
[2021-02-08] MEDS: 0.9% NaCl PICC Flush IV ×2 (10:57→12:28)
[2021-02-08 10:59] VITALS: BP 99/58; PULSE 88; RESP 16; TEMP 36.2; O2SAT 98
== END 2021-02-08 12:56 | disposition home or self-care (01) ==
LOC: MEDOUTP 10:20 → PCU 10:21
PROVIDERS: PCP Family Medicine Geriatric Medicine; Referring Provider Internal Medicine Infectious Disease; Visit Provider Internal Medicine Infectious Disease
DX: M86.9 Osteomyelitis, unspecified (principal); E11.628 Type 2 diabetes mellitus with other skin complications
CPT/HCPCS: 96365; J7040; A4216

== ENCOUNTER → 2021-02-09 10:12 | Outpatient (CLI) | payer MEDICARE, MEDICAID, SELFPAY ==
[2020-12-30 10:37] VITALS: BMI 29.2
[2021-02-06 10:16] VITALS: BMI 29.2
[2021-02-09] MEDS: 0.9% NaCl PICC Flush IV ×3 (10:25→12:38)
[2021-02-09] MEDS: 0.9% NaCl IVPB Med Flush (250 mL) 15 ML IV (10:34)
[2021-02-09 10:35] VITALS: BP 132/66; PULSE 92; RESP 16; TEMP 35.8; O2SAT 99; BMI 29.2
[2021-02-09 10:46] LABS: Hematocrit 38.7 % (40-54); Hemoglobin 12.1 g/dL (13.0-16.5); Mean Corp Hgb Conc 31.3 g/dL (32-36); Mean Corpuscular Hgb 27.4 pg (27.0-32.0); Mean Corpuscular Volume 87.6 fL (80-94); Mean Platelet Vol. 10.2 fl (6.2-12.0); Platelet Count 228 K/mm3 (150-450); RBC Distribution Width CV 18.2 % (11.6-14.6); RBC Distribution Width SD 59.2 fl (35.1-43.9); Red Blood Count 4.42 M/mm3 (4.6-6.2); White Blood Count 6.7 K/mm3 (4.4-11.0)
[2021-02-09 11:03] LABS: ALB/GLOB Ratio 1.1 RATIO (0.9-2.4); AST(SGOT) 15 U/L (15-37); Alanine Aminotransfer ALT/SGPT 23 U/L (16-61); Albumin, Serum 3.8 g/dL (3.2-5.0); Alkaline Phosphatase 108 U/L (45-117); Anion Gap 6 (5-15); BUN 12 mg/dL (7-18); BUN/Creat Ratio 15.4 RATIO (10-20); CRP 3.85 mg/L (0.0-3.0); Chloride 111 mmol/L (98-107); Creatinine, Serum 0.78 mg/dL (0.70-1.30); EST Glomerular Filtration Rate 106 mL/min (>60); Est Glom Filt Rate - Afr Amer 128 mL/min (>60); Globulin 3.5 g/dL (2.2-4.2); Glucose 238 mg/dL (74-106); Potassium 4.4 mmol/L (3.5-5.1); Protein, Total 7.3 g/dL (6.4-8.2); Sodium Level 139 mmol/L (136-145)
[2021-02-09 12:10] VITALS: BP 118/64; PULSE 78; RESP 18; TEMP 36.3; O2SAT 98
[2021-02-09 18:44] LABS: Xtra Tube EP Lab EXTRA TUBE
== END ==
PROVIDERS: PCP Family Medicine Geriatric Medicine; Referring Provider Internal Medicine Infectious Disease; Visit Provider Internal Medicine Infectious Disease
DX: M86.9 Osteomyelitis, unspecified (principal); E11.628 Type 2 diabetes mellitus with other skin complications
CPT/HCPCS: 96365; 36592; 80053; 85027; 86140; J7050; A4216

== ENCOUNTER → 2021-02-10 10:13 | Outpatient (CLI) | payer MEDICARE, MEDICAID, SELFPAY ==
[2020-12-30 10:37] VITALS: BMI 29.2
[2021-02-09 10:35] VITALS: BMI 29.2
[2021-02-10] MEDS: 0.9% NaCl PICC Flush IV ×2 (10:18→11:43)
[2021-02-10 10:19] VITALS: BP 111/60; PULSE 108; RESP 16; TEMP 35.9; O2SAT 98; BMI 29.2
[2021-02-10] MEDS: 0.9% NaCl IVPB Med Flush (250 mL) 15 ML IV (10:24)
[2021-02-10 11:41] VITALS: BP 130/63; PULSE 97; RESP 18; TEMP 36.4; O2SAT 96
== END ==
PROVIDERS: PCP Family Medicine Geriatric Medicine; Referring Provider Internal Medicine Infectious Disease; Visit Provider Internal Medicine Infectious Disease
DX: M86.9 Osteomyelitis, unspecified (principal); E11.628 Type 2 diabetes mellitus with other skin complications
CPT/HCPCS: 96365; J7050; A4216

== ENCOUNTER → 2021-02-11 10:06 | Outpatient (CLI) | payer MEDICARE, MEDICAID, SELFPAY ==
[2020-12-30 10:37] VITALS: BMI 29.2
[2021-02-10 10:19] VITALS: BMI 29.2
[2021-02-11 10:17] VITALS: BP 135/69; PULSE 110; RESP 16; TEMP 37.1; O2SAT 100; BMI 29.2
[2021-02-11] MEDS: 0.9% NaCl PICC Flush IV ×2 (10:21→11:38)
[2021-02-11 11:37] VITALS: BP 110/55; PULSE 103; RESP 16; TEMP 36.8; O2SAT 99
== END ==
PROVIDERS: PCP Family Medicine Geriatric Medicine; Referring Provider Internal Medicine Infectious Disease; Visit Provider Internal Medicine Infectious Disease
DX: M86.9 Osteomyelitis, unspecified (principal); E11.628 Type 2 diabetes mellitus with other skin complications
CPT/HCPCS: 96365; 96366; J7040; A4216

== ENCOUNTER → 2021-02-12 10:07 | Outpatient (CLI) | payer MEDICARE, MEDICAID, SELFPAY ==
[2020-12-30 10:37] VITALS: BMI 29.2
[2021-02-11 10:17] VITALS: BMI 29.2
[2021-02-12] MEDS: 0.9% NaCl PICC Flush IV ×2 (10:53→12:26)
[2021-02-12] MEDS: 0.9% NaCl IVPB Med Flush (250 mL) 15 ML IV (10:54)
[2021-02-12 10:55] VITALS: BP 106/56; PULSE 80; RESP 16; TEMP 36.4; O2SAT 99
[2021-02-12 12:05] VITALS: BP 124/60; PULSE 75; RESP 16; TEMP 36.3; O2SAT 99
== END ==
PROVIDERS: PCP Family Medicine Geriatric Medicine; Referring Provider Internal Medicine Infectious Disease; Visit Provider Internal Medicine Infectious Disease
DX: M86.9 Osteomyelitis, unspecified (principal); E11.628 Type 2 diabetes mellitus with other skin complications
CPT/HCPCS: 96365; J7050; A4216

== ENCOUNTER → 2021-02-13 10:08 | Outpatient (CLI) | payer MEDICARE, MEDICAID, SELFPAY ==
[2020-12-30 10:37] VITALS: BMI 29.2
[2021-02-11 10:17] VITALS: BMI 29.2
[2021-02-13 10:25] VITALS: BP 133/66; PULSE 108; RESP 16; TEMP 36.3; O2SAT 99; BMI 29.2
[2021-02-13] MEDS: 0.9% NaCl IVPB Med Flush (250 mL) 15 ML IV (10:30)
[2021-02-13] MEDS: 0.9% NaCl PICC Flush IV ×2 (10:30→12:01)
[2021-02-13 12:07] VITALS: BP 143/67; PULSE 98; RESP 16; TEMP 36.4
== END ==
PROVIDERS: PCP Family Medicine Geriatric Medicine; Referring Provider Internal Medicine Infectious Disease; Visit Provider Internal Medicine Infectious Disease
DX: M86.9 Osteomyelitis, unspecified (principal); E11.628 Type 2 diabetes mellitus with other skin complications
CPT/HCPCS: 96365; J7050; A4216

== ENCOUNTER 2021-02-14 10:01 | Outpatient (CLI) | payer MEDICARE, MEDICAID, SELFPAY ==
[2020-12-30 10:37] VITALS: BMI 29.2
[2021-02-13 10:25] VITALS: BMI 29.2
[2021-02-14 10:30] VITALS: BP 102/56; PULSE 108; RESP 18; TEMP 36.4; O2SAT 97
[2021-02-14 12:18] VITALS: BP 163/79; PULSE 106; RESP 18; TEMP 36.4; O2SAT 99
== END 2021-02-14 12:25 | disposition home or self-care (01) ==
LOC: MEDOUTP 10:01 → PCU 10:02
PROVIDERS: PCP Family Medicine Geriatric Medicine; Referring Provider Internal Medicine Infectious Disease; Visit Provider Internal Medicine Infectious Disease
DX: M86.9 Osteomyelitis, unspecified (principal); E11.628 Type 2 diabetes mellitus with other skin complications
CPT/HCPCS: 96365; 96366

== ENCOUNTER 2021-02-15 10:05 | Outpatient (CLI) | payer MEDICARE, MEDICAID, SELFPAY ==
[2020-12-30 10:37] VITALS: BMI 29.2
[2021-02-13 10:25] VITALS: BMI 29.2
[2021-02-15 10:08] VITALS: BP 133/64; PULSE 101; RESP 18; TEMP 36.1; O2SAT 100
[2021-02-15] MEDS: 0.9% Saline Lock 10 ML Syringe IV (10:18)
== END 2021-02-15 11:38 | disposition home or self-care (01) ==
LOC: MEDOUTP 10:05 → PCU 10:06
PROVIDERS: PCP Family Medicine Geriatric Medicine; Referring Provider Internal Medicine Infectious Disease; Visit Provider Internal Medicine Infectious Disease
DX: M86.9 Osteomyelitis, unspecified (principal); E11.628 Type 2 diabetes mellitus with other skin complications
CPT/HCPCS: 96365; J7050; A4216

== ENCOUNTER → 2021-02-16 10:07 | Outpatient (CLI) | payer MEDICARE, MEDICAID, SELFPAY ==
[2020-12-30 10:37] VITALS: BMI 29.2
[2021-02-13 10:25] VITALS: BMI 29.2
[2021-02-16 10:24] VITALS: BP 108/64; PULSE 92; RESP 18; TEMP 36.2; O2SAT 99; BMI 29.2
[2021-02-16 10:41] LABS: Hematocrit 39.1 % (40-54); Hemoglobin 12.4 g/dL (13.0-16.5); Mean Corp Hgb Conc 31.7 g/dL (32-36); Mean Corpuscular Hgb 27.8 pg (27.0-32.0); Mean Corpuscular Volume 87.7 fL (80-94); Mean Platelet Vol. 10.8 fl (6.2-12.0); Platelet Count 240 K/mm3 (150-450); RBC Distribution Width CV 17.5 % (11.6-14.6); RBC Distribution Width SD 56.5 fl (35.1-43.9); Red Blood Count 4.46 M/mm3 (4.6-6.2); White Blood Count 5.2 K/mm3 (4.4-11.0)
[2021-02-16 11:19] LABS: ALB/GLOB Ratio 1.1 RATIO (0.9-2.4); AST(SGOT) 15 U/L (15-37); Alanine Aminotransfer ALT/SGPT 24 U/L (16-61); Albumin, Serum 3.6 g/dL (3.2-5.0); Alkaline Phosphatase 143 U/L (45-117); Anion Gap 9 (5-15); BUN 19 mg/dL (7-18); BUN/Creat Ratio 18.4 RATIO (10-20); CRP 5.14 mg/L (0.0-3.0); Calcium,Total 8.2 mg/dL (8.5-10.1); Chloride 105 mmol/L (98-107); Creatinine, Serum 1.03 mg/dL (0.70-1.30); EST Glomerular Filtration Rate 76 mL/min (>60); Est Glom Filt Rate - Afr Amer 92 mL/min (>60); Globulin 3.2 g/dL (2.2-4.2); Glucose 446 mg/dL (74-106); Potassium 3.6 mmol/L (3.5-5.1); Protein, Total 6.8 g/dL (6.4-8.2); Sodium Level 137 mmol/L (136-145)
[2021-02-16] MEDS: 0.9% NaCl PICC Flush IV (12:33)
== END ==
PROVIDERS: PCP Family Medicine Geriatric Medicine; Referring Provider Internal Medicine Infectious Disease; Visit Provider Internal Medicine Infectious Disease
DX: M86.9 Osteomyelitis, unspecified (principal); E11.628 Type 2 diabetes mellitus with other skin complications
CPT/HCPCS: 96365; 96366; 36415; 80053; 85027; 86140; A4216

== ENCOUNTER → 2021-02-17 09:53 | Outpatient (CLI) | payer MEDICARE, MEDICAID, SELFPAY ==
[2020-12-30 10:37] VITALS: BMI 29.2
[2021-02-16 10:24] VITALS: BMI 29.2
[2021-02-17 10:03] VITALS: BP 98/45; PULSE 106; RESP 16; TEMP 36.4; O2SAT 98
[2021-02-17] MEDS: 0.9% NaCl PICC Flush IV ×2 (10:09→12:02)
[2021-02-17] MEDS: 0.9% NaCl IVPB Med Flush (250 mL) 15 ML IV (10:10)
[2021-02-17 12:04] VITALS: BP 117/64; PULSE 109; RESP 16; O2SAT 98
== END ==
PROVIDERS: PCP Family Medicine Geriatric Medicine; Referring Provider Internal Medicine Infectious Disease; Visit Provider Internal Medicine Infectious Disease
DX: M86.9 Osteomyelitis, unspecified (principal); E11.628 Type 2 diabetes mellitus with other skin complications
CPT/HCPCS: 96365; J7050; A4216

== ENCOUNTER → 2021-02-18 10:15 | Outpatient (CLI) | payer MEDICARE, MEDICAID, SELFPAY ==
[2021-02-16 10:24] VITALS: BMI 29.2
[2021-02-18] MEDS: 0.9% NaCl PICC Flush IV ×2 (10:18→12:09)
[2021-02-18 10:21] VITALS: BP 96/58; PULSE 87; RESP 16; TEMP 36.5; O2SAT 100; BMI 29.2
[2021-02-18] MEDS: 0.9% NaCl IVPB Med Flush (250 mL) 15 ML IV (10:23)
== END ==
PROVIDERS: PCP Family Medicine Geriatric Medicine; Visit Provider Internal Medicine Infectious Disease
DX: M86.9 Osteomyelitis, unspecified (principal); E11.628 Type 2 diabetes mellitus with other skin complications
CPT/HCPCS: 96365; 96366; J7050; A4216

== ENCOUNTER → 2021-02-19 10:16 | Outpatient (CLI) | payer MEDICARE, MEDICAID, SELFPAY ==
[2021-02-16 10:24] VITALS: BMI 29.2
[2021-02-18 10:21] VITALS: BMI 29.2
[2021-02-19] MEDS: 0.9% NaCl PICC Flush IV ×2 (10:21→12:13)
[2021-02-19] MEDS: 0.9% NaCl IVPB Med Flush (250 mL) 15 ML IV (10:22)
[2021-02-19 10:23] VITALS: BP 126/64; PULSE 109; RESP 18; TEMP 36.5; O2SAT 99; BMI 29.2
[2021-02-19 12:12] VITALS: BP 150/76; PULSE 106; RESP 18; TEMP 36.6
== END ==
PROVIDERS: PCP Family Medicine Geriatric Medicine; Referring Provider Internal Medicine Infectious Disease; Visit Provider Internal Medicine Infectious Disease
DX: M86.9 Osteomyelitis, unspecified (principal); E11.628 Type 2 diabetes mellitus with other skin complications
CPT/HCPCS: 96365; J7050; A4216

== ENCOUNTER → 2021-02-20 10:10 | Outpatient (CLI) | payer MEDICARE, MEDICAID, SELFPAY ==
[2021-02-16 10:24] VITALS: BMI 29.2
[2021-02-19 10:23] VITALS: BMI 29.2
[2021-02-20] MEDS: 0.9% NaCl IVPB Med Flush (250 mL) 15 ML IV (10:14)
[2021-02-20] MEDS: 0.9% NaCl PICC Flush IV ×2 (10:14→11:55)
[2021-02-20 10:21] VITALS: BP 131/63; PULSE 90; RESP 18; TEMP 35.6; O2SAT 99; BMI 29.2
[2021-02-20 11:57] VITALS: BP 109/64; PULSE 87; RESP 16; O2SAT 97
== END ==
PROVIDERS: PCP Family Medicine Geriatric Medicine; Referring Provider Internal Medicine Infectious Disease; Visit Provider Internal Medicine Infectious Disease
DX: M86.9 Osteomyelitis, unspecified (principal); E11.628 Type 2 diabetes mellitus with other skin complications
CPT/HCPCS: 96365; 96366; J7050; A4216

== ENCOUNTER 2021-02-21 09:25 | Outpatient (CLI) | payer MEDICARE, MEDICAID, SELFPAY ==
[2021-02-16 10:24] VITALS: BMI 29.2
[2021-02-20 10:21] VITALS: BMI 29.2
[2021-02-21 10:12] VITALS: BP 113/76; PULSE 107; RESP 18; TEMP 36.7; O2SAT 95
[2021-02-21] MEDS: 0.9% Saline Lock 10 ML Syringe IV (11:04)
== END 2021-02-21 11:20 | disposition home or self-care (01) ==
LOC: MEDOUTP 09:25 → MS3 09:26
PROVIDERS: PCP Family Medicine Geriatric Medicine; Referring Provider Internal Medicine Infectious Disease; Visit Provider Internal Medicine Infectious Disease
DX: M86.9 Osteomyelitis, unspecified (principal); E11.628 Type 2 diabetes mellitus with other skin complications
CPT/HCPCS: 96365; A4216

== ENCOUNTER 2021-02-22 09:55 | Outpatient (CLI) | payer MEDICARE, MEDICAID, SELFPAY ==
[2021-02-16 10:24] VITALS: BMI 29.2
[2021-02-20 10:21] VITALS: BMI 29.2
[2021-02-22] MEDS: 0.9% Saline Lock 10 ML Syringe IV ×2 (09:53→11:21)
[2021-02-22 10:05] VITALS: BP 95/60; PULSE 102; RESP 18; TEMP 36.7; O2SAT 98
== END 2021-02-22 11:25 | disposition home or self-care (01) ==
LOC: MEDOUTP 09:57 → MS3 09:58
PROVIDERS: PCP Family Medicine Geriatric Medicine; Referring Provider Internal Medicine Infectious Disease; Visit Provider Internal Medicine Infectious Disease
DX: M86.9 Osteomyelitis, unspecified (principal); E11.628 Type 2 diabetes mellitus with other skin complications
CPT/HCPCS: 96365; 96366; J7050; A4216

== ENCOUNTER → 2021-02-23 09:58 | Outpatient (CLI) | payer MEDICARE, MEDICAID, SELFPAY ==
[2021-02-16 10:24] VITALS: BMI 29.2
[2021-02-20 10:21] VITALS: BMI 29.2
[2021-02-23] MEDS: 0.9% NaCl PICC Flush IV ×2 (10:12→12:19)
[2021-02-23] MEDS: 0.9% NaCl IVPB Med Flush (250 mL) 15 ML IV (10:14)
[2021-02-23 10:19] VITALS: BP 93/50; PULSE 85; RESP 18; TEMP 36.2; O2SAT 99; BMI 29.2
[2021-02-23 10:32] LABS: Hematocrit 38.8 % (40-54); Hemoglobin 12.4 g/dL (13.0-16.5); Mean Corpuscular Hgb 27.8 pg (27.0-32.0); Mean Platelet Vol. 10.5 fl (6.2-12.0); Platelet Count 237 K/mm3 (150-450); RBC Distribution Width CV 16.9 % (11.6-14.6); Red Blood Count 4.46 M/mm3 (4.6-6.2); White Blood Count 6.2 K/mm3 (4.4-11.0)
[2021-02-23 10:48] LABS: ALB/GLOB Ratio 1.1 RATIO (0.9-2.4); AST(SGOT) 15 U/L (15-37); Alanine Aminotransfer ALT/SGPT 23 U/L (16-61); Albumin, Serum 3.7 g/dL (3.2-5.0); Alkaline Phosphatase 120 U/L (45-117); Anion Gap 5 (5-15); BUN 15 mg/dL (7-18); BUN/Creat Ratio 15.9 RATIO (10-20); CRP 5.58 mg/L (0.0-3.0); Calcium,Total 8.7 mg/dL (8.5-10.1); Chloride 109 mmol/L (98-107); Creatinine, Serum 0.94 mg/dL (0.70-1.30); EST Glomerular Filtration Rate 84 mL/min (>60); Est Glom Filt Rate - Afr Amer 102 mL/min (>60); Globulin 3.5 g/dL (2.2-4.2); Glucose 304 mg/dL (74-106); Potassium 4.1 mmol/L (3.5-5.1); Protein, Total 7.2 g/dL (6.4-8.2); Sodium Level 138 mmol/L (136-145)
[2021-02-23 12:30] VITALS: BP 122/55; PULSE 82; RESP 18; TEMP 36.3; O2SAT 98
== END ==
PROVIDERS: PCP Family Medicine Geriatric Medicine; Referring Provider Internal Medicine Infectious Disease; Visit Provider Internal Medicine Infectious Disease
DX: M86.9 Osteomyelitis, unspecified (principal); E11.628 Type 2 diabetes mellitus with other skin complications
CPT/HCPCS: 96365; 96366; 36592; 80053; 85027; 86140; J7050; A4216

== ENCOUNTER → 2021-02-24 09:58 | Outpatient (CLI) | payer MEDICARE, MEDICAID, SELFPAY ==
[2021-02-16 10:24] VITALS: BMI 29.2
[2021-02-23 10:19] VITALS: BMI 29.2
[2021-02-24] MEDS: 0.9% NaCl PICC Flush IV ×2 (10:13→11:47)
[2021-02-24] MEDS: 0.9% NaCl IVPB Med Flush (250 mL) 15 ML IV (10:13)
[2021-02-24 10:17] VITALS: BP 111/51; PULSE 112; RESP 16; TEMP 36.8; O2SAT 98
[2021-02-24 11:50] VITALS: BP 133/68; PULSE 102; RESP 16; O2SAT 100
== END ==
PROVIDERS: PCP Family Medicine Geriatric Medicine; Referring Provider Internal Medicine Infectious Disease; Visit Provider Internal Medicine Infectious Disease
DX: M86.9 Osteomyelitis, unspecified (principal); E11.628 Type 2 diabetes mellitus with other skin complications
CPT/HCPCS: 96365; J7050; A4216

== ENCOUNTER → 2021-02-25 10:02 | Outpatient (CLI) | payer MEDICARE, MEDICAID, SELFPAY ==
[2021-02-16 10:24] VITALS: BMI 29.2
[2021-02-23 10:19] VITALS: BMI 29.2
[2021-02-25 10:13] VITALS: BP 119/65; PULSE 96; RESP 16; TEMP 36.5; O2SAT 99; BMI 29.2
[2021-02-25] MEDS: 0.9% NaCl PICC Flush IV ×2 (10:21→11:57)
[2021-02-25] MEDS: 0.9% NaCl IVPB Med Flush (250 mL) 15 ML IV (10:22)
[2021-02-25 11:58] VITALS: BP 113/53; PULSE 91; RESP 16; TEMP 36.2; O2SAT 98
== END ==
PROVIDERS: PCP Family Medicine Geriatric Medicine; Referring Provider Internal Medicine Infectious Disease; Visit Provider Internal Medicine Infectious Disease
DX: E11.628 Type 2 diabetes mellitus with other skin complications (principal); M86.8X7 Other osteomyelitis, ankle and foot
CPT/HCPCS: 96365; J7050; A4216

== ENCOUNTER → 2021-02-26 10:07 | Outpatient (CLI) | payer MEDICARE, MEDICAID, SELFPAY ==
[2021-02-16 10:24] VITALS: BMI 29.2
[2021-02-25 10:13] VITALS: BMI 29.2
[2021-02-26] MEDS: 0.9% NaCl IVPB Med Flush (250 mL) 15 ML IV (10:15)
[2021-02-26] MEDS: 0.9% NaCl PICC Flush IV ×3 (10:15→12:24)
[2021-02-26 10:16] VITALS: BP 115/71; PULSE 102; RESP 16; TEMP 36.1; O2SAT 99
[2021-02-26 11:45] VITALS: BP 140/66; PULSE 99; RESP 16; TEMP 36.4
== END ==
PROVIDERS: PCP Family Medicine Geriatric Medicine; Referring Provider Internal Medicine Infectious Disease; Visit Provider Internal Medicine Infectious Disease
DX: E11.628 Type 2 diabetes mellitus with other skin complications (principal); M86.8X7 Other osteomyelitis, ankle and foot
CPT/HCPCS: 96365; J7050; A4216

== ENCOUNTER → 2021-02-27 10:05 | Outpatient (CLI) | payer MEDICARE, MEDICAID, SELFPAY ==
[2021-02-16 10:24] VITALS: BMI 29.2
[2021-02-25 10:13] VITALS: BMI 29.2
[2021-02-27] MEDS: 0.9% NaCl IVPB Med Flush (250 mL) 15 ML IV (10:14)
[2021-02-27] MEDS: 0.9% NaCl PICC Flush IV ×2 (10:14→11:56)
[2021-02-27 10:19] VITALS: BP 122/66; PULSE 110; RESP 16; TEMP 36.2; O2SAT 98; BMI 29.2
[2021-02-27 11:57] VITALS: BP 138/72; PULSE 94; RESP 16
== END ==
PROVIDERS: PCP Family Medicine Geriatric Medicine; Referring Provider Internal Medicine Infectious Disease; Visit Provider Internal Medicine Infectious Disease
DX: M86.10 Other acute osteomyelitis, unspecified site (principal)
CPT/HCPCS: 96365; J7050; A4216

== ENCOUNTER 2021-02-28 09:43 | Outpatient (CLI) | payer MEDICARE, MEDICAID, SELFPAY ==
[2021-02-16 10:24] VITALS: BMI 29.2
[2021-02-27 10:19] VITALS: BMI 29.2
[2021-02-28 10:27] VITALS: BP 95/59; PULSE 103; RESP 18; TEMP 36.7; O2SAT 95
--- NOTE | 2021-02-28 12:02 | NURSING ---
Picc flushed before and after infusion with 10 ml of ns.
== END 2021-02-28 12:05 | disposition home or self-care (01) ==
LOC: MEDOUTP 09:43 → PCU 09:44
PROVIDERS: PCP Family Medicine Geriatric Medicine; Referring Provider Internal Medicine Infectious Disease; Visit Provider Internal Medicine Infectious Disease
DX: E11.628 Type 2 diabetes mellitus with other skin complications (principal); M86.8X7 Other osteomyelitis, ankle and foot
CPT/HCPCS: 96365

== ENCOUNTER 2021-03-01 09:55 | Outpatient (CLI) | payer MEDICARE, MEDICAID, SELFPAY ==
[2021-02-16 10:24] VITALS: BMI 29.2
[2021-02-27 10:19] VITALS: BMI 29.2
[2021-03-01 10:20] VITALS: BP 141/95; PULSE 99; RESP 18; TEMP 36.3; O2SAT 99
[2021-03-01] MEDS: 0.9% Saline Lock 10 ML Syringe IV (12:31)
== END 2021-03-01 12:35 | disposition home or self-care (01) ==
LOC: MEDOUTP 09:55 → PCU 09:56
PROVIDERS: PCP Family Medicine Geriatric Medicine; Referring Provider Internal Medicine Infectious Disease; Visit Provider Internal Medicine Infectious Disease
DX: E11.628 Type 2 diabetes mellitus with other skin complications (principal); M86.8X7 Other osteomyelitis, ankle and foot
CPT/HCPCS: 96365; J7040; A4216

== ENCOUNTER → 2021-03-02 10:07 | Outpatient (CLI) | payer MEDICARE, MEDICAID, SELFPAY ==
[2021-02-16 10:24] VITALS: BMI 29.2
[2021-02-27 10:19] VITALS: BMI 29.2
[2021-03-02] MEDS: 0.9% NaCl IVPB Med Flush (250 mL) 15 ML IV (10:54)
[2021-03-02] MEDS: 0.9% NaCl PICC Flush IV ×2 (10:54→12:31)
[2021-03-02 11:02] VITALS: BP 110/66; PULSE 95; RESP 16; TEMP 36.4; O2SAT 98
[2021-03-02 11:06] LABS: Hematocrit 36.6 % (40-54); Hemoglobin 11.9 g/dL (13.0-16.5); Mean Corp Hgb Conc 32.5 g/dL (32-36); Mean Corpuscular Hgb 28.5 pg (27.0-32.0); Mean Corpuscular Volume 87.6 fL (80-94); Mean Platelet Vol. 10.1 fl (6.2-12.0); Platelet Count 214 K/mm3 (150-450); RBC Distribution Width CV 16.6 % (11.6-14.6); RBC Distribution Width SD 53.4 fl (35.1-43.9); Red Blood Count 4.18 M/mm3 (4.6-6.2); White Blood Count 5.3 K/mm3 (4.4-11.0)
[2021-03-02 11:25] LABS: ALB/GLOB Ratio 1.1 RATIO (0.9-2.4); AST(SGOT) 20 U/L (15-37); Alanine Aminotransfer ALT/SGPT 25 U/L (16-61); Albumin, Serum 3.6 g/dL (3.2-5.0); Alkaline Phosphatase 110 U/L (45-117); Anion Gap 3 (5-15); BUN 9 mg/dL (7-18); BUN/Creat Ratio 12.7 RATIO (10-20); CRP 5.98 mg/L (0.0-3.0); Calcium,Total 8.7 mg/dL (8.5-10.1); Chloride 113 mmol/L (98-107); Creatinine, Serum 0.71 mg/dL (0.70-1.30); EST Glomerular Filtration Rate 117 mL/min (>60); Est Glom Filt Rate - Afr Amer 142 mL/min (>60); Globulin 3.4 g/dL (2.2-4.2); Glucose 156 mg/dL (74-106); Potassium 3.5 mmol/L (3.5-5.1); Sodium Level 142 mmol/L (136-145)
[2021-03-02 12:32] VITALS: BP 131/67; PULSE 100; RESP 18; O2SAT 98
[2021-03-02 19:02] LABS: Xtra Tube EP Lab EXTRA TUBE
== END ==
PROVIDERS: PCP Family Medicine Geriatric Medicine; Referring Provider Internal Medicine Infectious Disease; Visit Provider Internal Medicine Infectious Disease
DX: E11.628 Type 2 diabetes mellitus with other skin complications (principal); M86.8X7 Other osteomyelitis, ankle and foot
CPT/HCPCS: 96365; 80053; 85027; 86140; J7050; A4216

== ENCOUNTER → 2021-03-03 10:02 | Outpatient (CLI) | payer MEDICARE, MEDICAID, SELFPAY ==
[2021-02-16 10:24] VITALS: BMI 29.2
[2021-02-27 10:19] VITALS: BMI 29.2
[2021-03-03] MEDS: 0.9% NaCl PICC Flush IV ×2 (10:15→11:52)
[2021-03-03] MEDS: 0.9% NaCl IVPB Med Flush (250 mL) 15 ML IV (10:16)
[2021-03-03 10:17] VITALS: BP 129/62; PULSE 112; RESP 16; TEMP 36.6; O2SAT 98
[2021-03-03 11:53] VITALS: BP 140/65; PULSE 100; RESP 16; TEMP 36.4
== END ==
PROVIDERS: PCP Family Medicine Geriatric Medicine; Referring Provider Internal Medicine Infectious Disease; Visit Provider Internal Medicine Infectious Disease
DX: E11.628 Type 2 diabetes mellitus with other skin complications (principal); M86.8X7 Other osteomyelitis, ankle and foot
CPT/HCPCS: 96365; J7050; A4216

== ENCOUNTER → 2021-03-04 10:08 | Outpatient (CLI) | payer MEDICARE, MEDICAID, SELFPAY ==
[2021-02-16 10:24] VITALS: BMI 29.2
[2021-02-27 10:19] VITALS: BMI 29.2
[2021-03-04] MEDS: 0.9% NaCl PICC Flush IV ×2 (10:23→11:56)
[2021-03-04] MEDS: 0.9% NaCl IVPB Med Flush (250 mL) 15 ML IV (10:23)
[2021-03-04 10:26] VITALS: BP 137/70; PULSE 105; RESP 16; TEMP 36.5; O2SAT 99
[2021-03-04 11:57] VITALS: BP 132/66; PULSE 102; RESP 16; TEMP 36.4; O2SAT 98
== END ==
PROVIDERS: PCP Family Medicine Geriatric Medicine; Referring Provider Internal Medicine Infectious Disease; Visit Provider Internal Medicine Infectious Disease
DX: M86.9 Osteomyelitis, unspecified (principal); E11.628 Type 2 diabetes mellitus with other skin complications
CPT/HCPCS: 96365; J7050; A4216

== ENCOUNTER → 2021-03-05 10:04 | Outpatient (CLI) | payer MEDICARE, MEDICAID, SELFPAY ==
[2021-02-16 10:24] VITALS: BMI 29.2
[2021-03-05] MEDS: 0.9% NaCl IVPB Med Flush (250 mL) 15 ML IV (10:12)
[2021-03-05] MEDS: 0.9% NaCl PICC Flush IV ×2 (10:12→11:47)
[2021-03-05 10:14] VITALS: BP 145/80; PULSE 101; RESP 16; TEMP 36.3; O2SAT 99
== END ==
PROVIDERS: PCP Family Medicine Geriatric Medicine; Referring Provider Internal Medicine Infectious Disease; Visit Provider Internal Medicine Infectious Disease
DX: M86.9 Osteomyelitis, unspecified (principal); E11.628 Type 2 diabetes mellitus with other skin complications
CPT/HCPCS: 96365; 96366; J7050; A4216

== ENCOUNTER → 2021-03-06 10:05 | Outpatient (CLI) | payer MEDICARE, MEDICAID, SELFPAY ==
[2021-02-16 10:24] VITALS: BMI 29.2
[2021-03-06] MEDS: 0.9% NaCl Peripheral Flush Adult/Peds IV ×2 (10:17→11:50)
[2021-03-06] MEDS: 0.9% NaCl IVPB Med Flush (250 mL) 15 ML IV (10:23)
[2021-03-06 10:24] VITALS: BP 146/76; PULSE 105; RESP 16; TEMP 35.9; O2SAT 99
[2021-03-06 11:51] VITALS: BP 128/69; PULSE 101; RESP 16; TEMP 36.1
== END ==
PROVIDERS: PCP Family Medicine Geriatric Medicine; Referring Provider Internal Medicine Infectious Disease; Visit Provider Internal Medicine Infectious Disease
DX: M86.9 Osteomyelitis, unspecified (principal); E11.628 Type 2 diabetes mellitus with other skin complications
CPT/HCPCS: 96365; J7050; A4216

== ENCOUNTER → 2021-03-07 09:44 | Outpatient (CLI) | payer MEDICARE, MEDICAID, SELFPAY ==
[2021-02-16 10:24] VITALS: BMI 29.2
[2021-03-07 10:23] VITALS: BP 141/78; PULSE 107; RESP 16; TEMP 36; O2SAT 98
== END ==
PROVIDERS: PCP Family Medicine Geriatric Medicine; Referring Provider Internal Medicine Infectious Disease; Visit Provider Internal Medicine Infectious Disease
DX: M86.9 Osteomyelitis, unspecified (principal); E11.628 Type 2 diabetes mellitus with other skin complications
CPT/HCPCS: 96365; J7050; A4216

== ENCOUNTER → 2021-03-08 10:06 | Outpatient (CLI) | payer MEDICARE, MEDICAID, SELFPAY ==
[2021-02-16 10:24] VITALS: BMI 29.2
[2021-03-08 10:30] VITALS: BP 115/71; PULSE 111; RESP 16; TEMP 35.8; O2SAT 98
== END ==
PROVIDERS: PCP Family Medicine Geriatric Medicine; Referring Provider Internal Medicine Infectious Disease; Visit Provider Internal Medicine Infectious Disease
DX: M86.9 Osteomyelitis, unspecified (principal); E11.628 Type 2 diabetes mellitus with other skin complications
CPT/HCPCS: 96365; 96366; J7050; A4216

== ENCOUNTER → 2021-03-09 10:14 | Outpatient (CLI) | payer MEDICARE, MEDICAID, SELFPAY ==
[2021-02-16 10:24] VITALS: BMI 29.2
[2021-03-09 10:29] VITALS: BP 125/63; PULSE 114; RESP 16; TEMP 35.8; O2SAT 98; BMI 29.2
[2021-03-09 10:49] LABS: Hematocrit 40.1 % (40-54); Hemoglobin 13.1 g/dL (13.0-16.5); Mean Corp Hgb Conc 32.7 g/dL (32-36); Mean Corpuscular Volume 85.7 fL (80-94); Mean Platelet Vol. 9.6 fl (6.2-12.0); Platelet Count 220 K/mm3 (150-450); RBC Distribution Width CV 15.4 % (11.6-14.6); RBC Distribution Width SD 47.9 fl (35.1-43.9); Red Blood Count 4.68 M/mm3 (4.6-6.2); White Blood Count 5.6 K/mm3 (4.4-11.0)
[2021-03-09 11:00] LABS: AST(SGOT) 16 U/L (15-37); Alanine Aminotransfer ALT/SGPT 27 U/L (16-61); Albumin, Serum 3.9 g/dL (3.2-5.0); Alkaline Phosphatase 139 U/L (45-117); Anion Gap 6 (5-15); BUN 9 mg/dL (7-18); BUN/Creat Ratio 10.4 RATIO (10-20); CRP 8.02 mg/L (0.0-3.0); Calcium,Total 8.9 mg/dL (8.5-10.1); Chloride 106 mmol/L (98-107); Creatinine, Serum 0.87 mg/dL (0.70-1.30); EST Glomerular Filtration Rate 93 mL/min (>60); Est Glom Filt Rate - Afr Amer 113 mL/min (>60); Globulin 3.8 g/dL (2.2-4.2); Glucose 299 mg/dL (74-106); Potassium 3.8 mmol/L (3.5-5.1); Protein, Total 7.7 g/dL (6.4-8.2); Sodium Level 136 mmol/L (136-145)
[2021-03-09 18:46] LABS: Xtra Tube EP Lab EXTRA TUBE
== END ==
PROVIDERS: PCP Family Medicine Geriatric Medicine; Referring Provider Internal Medicine Infectious Disease; Visit Provider Internal Medicine Infectious Disease
DX: M86.9 Osteomyelitis, unspecified (principal); E11.628 Type 2 diabetes mellitus with other skin complications
CPT/HCPCS: 96365; 96366; 36592; 80053; 85027; 86140; J7050; A4216

== ENCOUNTER → 2021-03-10 10:09 | Outpatient (CLI) | payer MEDICARE, MEDICAID, SELFPAY ==
[2021-02-16 10:24] VITALS: BMI 29.2
[2021-03-10] MEDS: 0.9% NaCl PICC Flush IV ×2 (10:18→12:17)
[2021-03-10] MEDS: 0.9% NaCl IVPB Med Flush (250 mL) 15 ML IV (10:18)
[2021-03-10 10:19] VITALS: BP 133/68; PULSE 116; RESP 16; TEMP 36.6; O2SAT 97
== END ==
PROVIDERS: PCP Family Medicine Geriatric Medicine; Referring Provider Internal Medicine Infectious Disease; Visit Provider Internal Medicine Infectious Disease
DX: M86.9 Osteomyelitis, unspecified (principal); E11.628 Type 2 diabetes mellitus with other skin complications
CPT/HCPCS: 96365; J7050; A4216

== ENCOUNTER → 2021-03-11 10:09 | Outpatient (CLI) | payer MEDICARE, MEDICAID, SELFPAY ==
[2021-02-16 10:24] VITALS: BMI 29.2
[2021-03-11] MEDS: 0.9% NaCl IVPB Med Flush (250 mL) 15 ML IV (10:29)
[2021-03-11] MEDS: 0.9% NaCl PICC Flush IV ×2 (10:29→12:02)
[2021-03-11 10:34] VITALS: BP 104/71; PULSE 54; RESP 16; TEMP 36.2; O2SAT 97
== END ==
PROVIDERS: PCP Family Medicine Geriatric Medicine; Referring Provider Internal Medicine Infectious Disease; Visit Provider Internal Medicine Infectious Disease
DX: M86.9 Osteomyelitis, unspecified (principal); E11.628 Type 2 diabetes mellitus with other skin complications
CPT/HCPCS: 96365; J7050; A4216

== ENCOUNTER → 2021-03-12 10:08 | Outpatient (CLI) | payer MEDICARE, MEDICAID, SELFPAY ==
[2021-02-16 10:24] VITALS: BMI 29.2
[2021-03-12] MEDS: 0.9% NaCl IVPB Med Flush (250 mL) 15 ML IV (10:13)
[2021-03-12] MEDS: 0.9% NaCl PICC Flush IV ×2 (10:13→11:57)
[2021-03-12 10:17] VITALS: BP 142/70; PULSE 118; RESP 16; TEMP 35.7; O2SAT 98; BMI 29.2
[2021-03-12 11:59] VITALS: BP 122/80; PULSE 102; RESP 16; TEMP 36.3; O2SAT 97
== END ==
PROVIDERS: PCP Family Medicine Geriatric Medicine; Referring Provider Internal Medicine Infectious Disease; Visit Provider Internal Medicine Infectious Disease
DX: M86.9 Osteomyelitis, unspecified (principal); E11.628 Type 2 diabetes mellitus with other skin complications
CPT/HCPCS: 96365; 96366; J7050; A4216

== ENCOUNTER → 2021-03-13 10:06 | Outpatient (CLI) | payer MEDICARE, MEDICAID, SELFPAY ==
[2021-02-16 10:24] VITALS: BMI 29.2
[2021-03-13] MEDS: 0.9% NaCl PICC Flush IV ×2 (10:17→11:53)
[2021-03-13] MEDS: 0.9% NaCl IVPB Med Flush (250 mL) 15 ML IV (10:17)
[2021-03-13 10:18] VITALS: BP 116/79; PULSE 109; RESP 18; TEMP 35.7
[2021-03-13 11:56] VITALS: BP 135/76; PULSE 101; RESP 16; TEMP 35.9
== END ==
PROVIDERS: PCP Family Medicine Geriatric Medicine; Referring Provider Internal Medicine Infectious Disease; Visit Provider Internal Medicine Infectious Disease
DX: M86.9 Osteomyelitis, unspecified (principal); E11.628 Type 2 diabetes mellitus with other skin complications
CPT/HCPCS: 96365; 96366; J7050; A4216

== ENCOUNTER → 2021-03-14 09:49 | Outpatient (CLI) | payer MEDICARE, MEDICAID, SELFPAY ==
[2021-02-16 10:24] VITALS: BMI 29.2
[2021-03-14] MEDS: 0.9% NaCl PICC Flush IV ×2 (10:24→12:01)
[2021-03-14] MEDS: 0.9% NaCl IVPB Med Flush (250 mL) 15 ML IV (10:24)
[2021-03-14 10:25] VITALS: BP 146/79; PULSE 114; RESP 16; TEMP 36.4; O2SAT 99
[2021-03-14 11:59] VITALS: BP 142/77; PULSE 105; RESP 16; TEMP 36.1
== END ==
PROVIDERS: PCP Family Medicine Geriatric Medicine; Referring Provider Internal Medicine Infectious Disease; Visit Provider Internal Medicine Infectious Disease
DX: M86.9 Osteomyelitis, unspecified (principal); E11.628 Type 2 diabetes mellitus with other skin complications
CPT/HCPCS: 96365; 96366; J7050; A4216

== ENCOUNTER → 2021-03-15 10:11 | Outpatient (CLI) | payer MEDICARE, MEDICAID, SELFPAY ==
[2021-02-16 10:24] VITALS: BMI 29.2
[2021-03-15 10:30] VITALS: BP 117/68; PULSE 108; RESP 18; TEMP 35.9; O2SAT 97
[2021-03-15 11:56] VITALS: BP 123/64; PULSE 100; RESP 16; O2SAT 97
== END ==
PROVIDERS: PCP Family Medicine Geriatric Medicine; Referring Provider Internal Medicine Infectious Disease; Visit Provider Internal Medicine Infectious Disease
DX: M86.9 Osteomyelitis, unspecified (principal); E11.628 Type 2 diabetes mellitus with other skin complications
CPT/HCPCS: 96365; J7050; A4216

== ENCOUNTER → 2021-03-16 10:17 | Outpatient (CLI) | payer MEDICARE, MEDICAID, SELFPAY ==
[2021-02-16 10:24] VITALS: BMI 29.2
[2021-03-16] MEDS: 0.9% NaCl PICC Flush IV ×2 (10:53→12:50)
[2021-03-16] MEDS: 0.9% NaCl IVPB Med Flush (250 mL) 15 ML IV (11:01)
[2021-03-16 11:04] VITALS: BP 115/59; PULSE 101; RESP 16; TEMP 36.2; O2SAT 97; BMI 29.2
[2021-03-16 11:12] LABS: Hematocrit 37.4 % (40-54); Mean Corp Hgb Conc 32.1 g/dL (32-36); Mean Corpuscular Hgb 28.3 pg (27.0-32.0); Mean Corpuscular Volume 88.2 fL (80-94); Mean Platelet Vol. 9.5 fl (6.2-12.0); Platelet Count 247 K/mm3 (150-450); RBC Distribution Width CV 15.6 % (11.6-14.6); RBC Distribution Width SD 49.3 fl (35.1-43.9); Red Blood Count 4.24 M/mm3 (4.6-6.2); White Blood Count 4.9 K/mm3 (4.4-11.0)
[2021-03-16 11:28] LABS: ALB/GLOB Ratio 1.1 RATIO (0.9-2.4); AST(SGOT) 26 U/L (15-37); Alanine Aminotransfer ALT/SGPT 39 U/L (16-61); Albumin, Serum 3.8 g/dL (3.2-5.0); Alkaline Phosphatase 119 U/L (45-117); Anion Gap 4 (5-15); BUN 15 mg/dL (7-18); BUN/Creat Ratio 18.5 RATIO (10-20); CRP 4.47 mg/L (0.0-3.0); Calcium,Total 8.8 mg/dL (8.5-10.1); Chloride 110 mmol/L (98-107); Creatinine, Serum 0.81 mg/dL (0.70-1.30); EST Glomerular Filtration Rate 100 mL/min (>60); Est Glom Filt Rate - Afr Amer 121 mL/min (>60); Estimated Creatinine Clearance 92.96 ml/min; Globulin 3.4 g/dL (2.2-4.2); Glucose 80 mg/dL (74-106); Potassium 3.6 mmol/L (3.5-5.1); Protein, Total 7.2 g/dL (6.4-8.2); Sodium Level 141 mmol/L (136-145)
[2021-03-16 12:45] VITALS: BP 125/52; PULSE 57; RESP 18; TEMP 36.2; O2SAT 97
[2021-03-16 19:09] LABS: Xtra Tube EP Lab EXTRA TUBE
== END ==
PROVIDERS: PCP Family Medicine Geriatric Medicine; Referring Provider Internal Medicine Infectious Disease; Visit Provider Internal Medicine Infectious Disease
DX: M86.9 Osteomyelitis, unspecified (principal); E11.628 Type 2 diabetes mellitus with other skin complications
CPT/HCPCS: 96365; 96366; 36592; 80053; 85027; 86140; J7050; A4216

== ENCOUNTER → 2021-03-17 10:12 | Outpatient (CLI) | payer MEDICARE, MEDICAID, SELFPAY ==
[2021-02-16 10:24] VITALS: BMI 29.2
[2021-03-17 10:15] VITALS: BP 123/64; PULSE 115; RESP 18; TEMP 36.5; O2SAT 98
[2021-03-17] MEDS: 0.9% NaCl PICC Flush IV ×2 (10:16→11:48)
[2021-03-17] MEDS: 0.9% NaCl IVPB Med Flush (250 mL) 15 ML IV (10:16)
[2021-03-17 11:49] VITALS: BP 120/63; PULSE 112; RESP 16; O2SAT 96
== END ==
PROVIDERS: PCP Family Medicine Geriatric Medicine; Referring Provider Internal Medicine Infectious Disease; Visit Provider Internal Medicine Infectious Disease
DX: M86.9 Osteomyelitis, unspecified (principal); E11.628 Type 2 diabetes mellitus with other skin complications
CPT/HCPCS: 96365; J7050; A4216

== ENCOUNTER → 2021-03-18 10:22 | Outpatient (CLI) | payer MEDICARE, MEDICAID, SELFPAY ==
[2021-02-16 10:24] VITALS: BMI 29.2
[2021-03-18] MEDS: 0.9% NaCl IVPB Med Flush (250 mL) 15 ML IV (10:33)
[2021-03-18] MEDS: 0.9% NaCl PICC Flush IV ×2 (10:33→12:31)
[2021-03-18 10:35] VITALS: BP 160/78; PULSE 100; RESP 16; TEMP 36.3; O2SAT 100; BMI 29.2
[2021-03-18 12:33] VITALS: BP 147/79; PULSE 100; RESP 18; O2SAT 100
== END ==
PROVIDERS: PCP Family Medicine Geriatric Medicine; Referring Provider Internal Medicine Infectious Disease; Visit Provider Internal Medicine Infectious Disease
DX: M86.9 Osteomyelitis, unspecified (principal); E11.628 Type 2 diabetes mellitus with other skin complications
CPT/HCPCS: 96365; 96366; J7050; A4216

== ENCOUNTER → 2021-03-19 10:18 | Outpatient (CLI) | payer MEDICARE, MEDICAID, SELFPAY ==
[2021-02-16 10:24] VITALS: BMI 29.2
[2021-03-19] MEDS: 0.9% NaCl PICC Flush IV ×2 (10:27→12:02)
[2021-03-19] MEDS: 0.9% NaCl IVPB Med Flush (250 mL) 15 ML IV (10:27)
[2021-03-19 10:30] VITALS: BP 144/70; PULSE 105; RESP 16; TEMP 36.5
[2021-03-19 12:03] VITALS: BP 122/73; PULSE 100; RESP 16; O2SAT 99
== END ==
PROVIDERS: PCP Family Medicine Geriatric Medicine; Referring Provider Internal Medicine Infectious Disease; Visit Provider Internal Medicine Infectious Disease
DX: M86.9 Osteomyelitis, unspecified (principal); E11.628 Type 2 diabetes mellitus with other skin complications
CPT/HCPCS: 96365; J7050; A4216

== ENCOUNTER → 2021-03-20 10:18 | Outpatient (CLI) | payer MEDICARE, MEDICAID, SELFPAY ==
[2021-02-16 10:24] VITALS: BMI 29.2
[2021-03-20] MEDS: 0.9% NaCl PICC Flush IV ×2 (10:27→12:19)
[2021-03-20] MEDS: 0.9% NaCl IVPB Med Flush (250 mL) 15 ML IV (10:27)
[2021-03-20 10:30] VITALS: BP 141/80; PULSE 110; RESP 18; TEMP 36.6; O2SAT 98; BMI 29.2
== END ==
PROVIDERS: PCP Family Medicine Geriatric Medicine; Referring Provider Internal Medicine Infectious Disease; Visit Provider Internal Medicine Infectious Disease
DX: M86.9 Osteomyelitis, unspecified (principal); E11.628 Type 2 diabetes mellitus with other skin complications
CPT/HCPCS: 96365; 96366; J7050; A4216

== ENCOUNTER → 2021-03-21 09:59 | Outpatient (CLI) | payer MEDICARE, MEDICAID, SELFPAY ==
[2021-02-16 10:24] VITALS: BMI 29.2
[2021-03-21 10:18] VITALS: BP 117/76; PULSE 103; RESP 16; TEMP 36.4; O2SAT 98; BMI 28.5
[2021-03-21 12:13] VITALS: BP 105/54; PULSE 101; RESP 16; TEMP 36.2; O2SAT 98
[2021-03-21 12:44] VITALS: BP 128/68; PULSE 103; RESP 16; TEMP 36.4; O2SAT 98
== END ==
PROVIDERS: PCP Family Medicine Geriatric Medicine; Referring Provider Internal Medicine Infectious Disease; Visit Provider Internal Medicine Infectious Disease
DX: M86.9 Osteomyelitis, unspecified (principal); E11.628 Type 2 diabetes mellitus with other skin complications
CPT/HCPCS: 96365; J7050; A4216

== ENCOUNTER 2021-05-24 08:33 | Emergency (ER) | payer MEDICARE, MEDICAID, SELFPAY ==
[2021-05-24 08:34] VITALS: RESP 16
[2021-05-24 08:35] VITALS: BP 153/82; PULSE 94; RESP 18; TEMP 36.7; O2SAT 97; BMI 30.2
--- NOTE | 2021-05-24 08:46 | EDS_ITS ---
HPI History of Present Illness Chief Complaint: Lower Extremity Injury Informant: patient and EMS Narrative Narrative: 70-year-old male presenting to the emergency department with right sided sciatica. Patient states that he drove to [place] on and on the way back began to have some discomfort in the left buttock going down the leg. By Tuesday it was worse but he was still able to ambulate. He states that yesterday he really could not get out of bed. He states that he is a diabetic and only had water and a package of candy yesterday because he could not get to the kitchen. Today he states he is unable to bear weight so he called EMS. He denies any recent falls. He states he had 2 prior back operations. He is on Coumadin and is due for an INR check on Tuesday at his doctor's office. Patient denies any neurologic deficit or muscle weakness simply pain from the right buttock down the leg to the foot. He is not on any long-term narcotics. [facility] Medical History Atherosclerosis of coronary artery without angina pectoris Bleeding disorder Chronic combined systolic and diastolic CHF (congestive heart failure) COPD (chronic obstructive pulmonary disease) Diabetic foot infection DVT (deep venous thrombosis) Gangrene of toe GERD (gastroesophageal reflux disease) History of non-ST elevation myocardial infarction (NSTEMI) (04/23/20) Ischemic cardiomyopathy Lumbar spinal stenosis MSSA (methicillin susceptible Staphylococcus aureus) infection Nicotine dependence Non-healing surgical wound (05/01/20) Nonrheumatic aortic (valve) stenosis 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 Obstructive sleep apnea Osteomyelitis Peripheral vascular occlusive disease Scabies infestation Secondary pulmonary arterial hypertension Sternal wound infection 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 foot with fat layer exposed Ulcer of right foot with necrosis of bone Home Medications metformin 500 mg tablet 500 mg PO BIDCM 05/31/20 [History Last Taken Unknown] metoprolol succinate 50 mg tablet,extended release 24 hr 75 mg PO DAILY 05/31/20 [History Last Taken 12/22/20] sennosides 8.6 mg-docusate sodium 50 mg capsule 1 tab-cap PO BID PRN cap 05/31/20 [History Last Taken Unknown] insulin aspart U-100 100 unit/mL subcutaneous solution 25 unit SC DAILY 06/30/20 [History Last Taken Unknown] polyethylene glycol 3350 17 gram/dose oral powder 17 g PO DAILY PRN 06/30/20 [History Last Taken Unknown] atorvastatin 40 mg PO QHS 11/12/20 [History Last Taken Unknown] insulin glargine [Lantus Solostar U-100 Insulin] 35 unit SUBCUT DAILY 11/12/20 [History Last Taken Unknown] warfarin 3 mg PO DAILY 11/12/20 [History Last Taken 12/22/20] acetaminophen [Tylenol Extra Strength] 1,000 mg PO Q6H PRN 12/23/20 [History Last Taken Unknown] ascorbic acid (vitamin C) [Vitamin C] 500 mg PO BID 12/23/20 [History Last Taken Unknown] aspirin [Aspir-81] 81 mg PO DAILY 12/23/20 [History Last Taken Unknown] caspofungin 50 mg IV Q24H 12/23/20 [History Last Taken Unknown] ferrous sulfate 325 mg PO DAILY 12/23/20 [History Last Taken Unknown] gabapentin 200 mg PO BID 12/23/20 [History Last Taken Unknown] insulin aspart U-100 [Novolog Flexpen U-100 Insulin] 20 unit SUBCUT BIDCM 12/23/20 [History Last Taken Unknown] linagliptin [Tradjenta] 5 mg PO DAILY 12/23/20 [History Last Taken Unknown] nystatin 1 applic TOPICAL DAILY PRN 12/23/20 [History Last Taken 12/22/20] omeprazole 40 mg PO DAILY 12/23/20 [History Last Taken 12/22/20] potassium chloride [K-Dur] 20 meq PO DAILY 12/23/20 [History Last Taken 12/22/20] enoxaparin 90 mg SUBCUT Q12@0600,1800 #6 ml 12/24/20 [Rx Last Taken Unknown] sacubitril-valsartan [Entresto] 1 tab PO BID 01/02/21 [History Last Taken Unknown] diazepam 5 mg PO Q8 PRN #10 tab 05/24/21 [Rx Last Taken Unknown] furosemide 40 mg PO DAILY 05/24/21 [History Last Taken Unknown] lisinopril 5 mg PO DAILY 05/24/21 [History Last Taken Unknown] oxycodone-acetaminophen 1 tab PO Q6H PRN PRN 5 Days #20 tablet 05/24/21 [Rx Last Taken Unknown] rosuvastatin 40 mg PO DAILY 05/24/21 [History Last Taken Unknown] tramadol 50 mg PO Q6H 05/24/21 [History Last Taken Unknown] Allergy/AdvReac Type Severity Reaction Status Date / Time No Known Allergies Allergy Verified 05/24/21 08:47 Family History Mother Diabetes Heart disease Father Diabetes Surgical History H/O coronary artery bypass surgery (05/01/20) History of angioplasty of peripheral vessel (01/02/10) History of femoropopliteal bypass (2008) History of incision and drainage (09/22/20) History of left heart catheterization (04/23/20) History of lumbar laminectomy History of mechanical aortic valve replacement Social History Smoking Status: Light Smoker (<10/day) alcohol intake: never substance use type: does not use caffeine: No ROS ROS ED Constitutional Constitutional ED: Denies chills, fever(s) or weight loss Eyes Eyes: Denies change in vision or diplopia ENT ENT ED: Denies ear pain, rhinorrhea or sore throat Cardiovascular Cardiovascular: Denies chest pain, orthopnea, palpitations or racing heartbeat Respiratory/Chest Respiratory/Chest: Denies cough, dyspnea or orthopnea Gastrointestinal Gastrointestinal: Denies abdominal pain, diarrhea, nausea or vomiting Genitourinary Genitourinary ED: Denies dysuria, hematuria or urinary frequency Musculoskeletal Musculoskeletal: Reports back pain and other Details: Right leg pain ; Denies arthralgias or myalgias Integumentary Denies abscess or rash Neurologic Neurologic: Denies headache(s) or weakness Psychiatric Psychiatric: Denies anxiety, depression, suicidal ideation or suicidal thoughts Endocrine Endocrinology: Denies polydipsia, polyphagia or polyuria Allergic/Immunologic Allergic/Immunologic ED: Denies mouth swelling, tongue swelling or urticaria EXAM Physical Exam Const Vital Signs: 05/24/21 08:34 05/24/21 08:35 Temperature 98.0 F Temperature Source Oral Pulse Rate 94 Respiratory Rate 16 18 Blood Pressure 153/82 H Blood Pressure Mean 105 Pulse Ox 97 Oxygen Delivery Method Room Air Positive well nourished and well developed General Appearance ED: well developed HEENT Reports normocephalic, head/scalp atraumatic, TM's clear and moist mucous membranes Negative for trauma Tympanic Membrane ED: Yes TM's clear Eyes PERRL and EOMs intact bilaterally Neck no lymphadenopathy, supple and no JVD Resp normal respiratory effort and clear to auscultation bilaterally Cardio regular rate, regular rhythm and no murmurs GI normal to inspection, nondistended, normoactive bowel sounds and non-tender Palpation: soft Back/Spine no CVA tenderness and normal ROM Extremity Extremity Narrative: Patient has focal tenderness in the right piriformis region. Tenderness posterior to the greater trochanter. Neurovascularly appreciated no deficits. Normal DTR of patellar and Achilles General Extremety ED: Negative for edema General Extremity: Negative for edema Neuro oriented x3 and CN's II-XII intact bilaterally Sensorium / Orientation: alert Motor Exam: strength 5/5 throughout Psych mental status grossly normal Mood & Affect: Negative for depressed or tearful Skin no rashes or lesions noted and no wounds MDM MDM MDM Narrative Medical decision making narrative: Patient received morphine Toradol and Valium. Accu-Chek was obtained and was 183. Repeat exam finds the patient to be doing better. He is able to ambulate. He was able to eat while here. At this point patient will be discharged home with prescription for Valium and Percocet. He has follow-up later this week with his primary care doctor Lab Data Labs: Laboratory Results - last 24 hr 05/24/21 08:45 POC Glucose 183 H Discharge Plan Triage Chief Complaint: Lower Extremity Injury ED Provider: Pro Frazier Dx/Rx/DC Orders Clinical Impression: Type 2 diabetes mellitus, Sciatica Instructions: ED Sciatica Prescriptions: New oxycodone-acetaminophen [oxycodone-acetaminophen] 1 TABLET tablet 1 tab PO Q6H PRN PRN (Reason: pain) 5 Days Qty: 20 RF: 0 diazepam [diazepam] 5 MG tablet 5 mg PO Q8 PRN (Reason: Muscle Spasm) Qty: 10 RF: 0 No Action metoprolol succinate [Toprol XL] 50 mg tablet extended release 24 hr 75 mg PO DAILY RF: 0 metformin 500 mg tablet 500 mg PO BIDCM RF: 0 Senna Plus 8.6-50 mg capsule 1 tab-cap PO BID PRN (Reason: Constipation) RF: 0 polyethylene glycol 3350 [Miralax] 17 gram/dose powder 17 g PO DAILY PRN (Reason: Constipation) RF: 0 insulin aspart U-100 [Novolog U-100 Insulin aspart] 100 unit/mL solution 25 unit SC DAILY RF: 0 atorvastatin 40 mg Tablet 40 mg PO QHS RF: 0 warfarin 3 mg Tablet 3 mg PO DAILY RF: 0 Lantus Solostar U-100 Insulin 100 unit/mL (3 mL) Insulin Pen 35 unit SUBCUT DAILY RF: 0 aspirin [Aspir-81] 81 mg Tablet,Delayed Release (Dr/Ec) 81 mg PO DAILY RF: 0 potassium chloride [K-Dur] 20 mEq Tablet,Er Particles/Crystals 20 meq PO DAILY RF: 0 Tradjenta 5 mg Tablet 5 mg PO DAILY RF: 0 ascorbic acid (vitamin C) [Vitamin C] 500 mg Tablet 500 mg PO BID RF: 0 ferrous sulfate 325 mg (65 mg iron) Tablet 325 mg PO DAILY RF: 0 nystatin 100,000 unit/gram Powder 1 applic TOPICAL DAILY PRN (Reason: redness) RF: 0 caspofungin 50 mg Recon Soln 50 mg IV Q24H RF: 0 acetaminophen [Tylenol Extra Strength] 500 mg Capsule 1,000 mg PO Q6H PRN (Reason: Pain) RF: 0 gabapentin 100 mg Tablet 200 mg PO BID RF: 0 insulin aspart U-100 [Novolog Flexpen U-100 Insulin] 100 unit/mL (3 mL) insulin pen 20 unit SUBCUT BIDCM RF: 0 omeprazole 40 mg capsule,delayed release(DR/EC) 40 mg PO DAILY RF: 0 enoxaparin 100 mg/mL Syringe 90 mg subcut Q12@0600,1800 Qty: 6 RF: 0 Entresto 24-26 mg Tablet 1 tab PO BID RF: 0 lisinopril 5 mg tablet 5 mg PO DAILY RF: 0 furosemide 40 mg tablet 40 mg PO DAILY RF: 0 tramadol 50 mg tablet 50 mg PO Q6H RF: 0 rosuvastatin 40 mg tablet 40 mg PO DAILY RF: 0 Primary Care Provider: Saurabh Hernandez Chi Referrals: Saurabh Hernandez Chi, MD [Primary Care Provider] - Keep Dara appointment Disposition Disposition: Home, Self Care
[2021-05-24] MEDS: Ketorolac 60 MG/2 ML Vial 30 MG IM (08:54)
[2021-05-24] MEDS: morphine 10 MG/ML Syringe 8 MG IM (08:54)
[2021-05-24 08:55] LABS: Bedside Glucose 183 mg/dL (70-110)
[2021-05-24] MEDS: diazePAM 5 MG Tablet PO (08:55)
== END 2021-05-24 09:59 | disposition home or self-care (01) ==
PROVIDERS: Emergency Provider Emergency Medicine; PCP Family Medicine Geriatric Medicine
DX: E11.42 Type 2 diabetes mellitus with diabetic polyneuropathy (principal); M54.31 Sciatica, right side; F17.200 Nicotine dependence, unspecified, uncomplicated; I25.2 Old myocardial infarction; I25.10 Atherosclerotic heart disease of native coronary artery without angina pectoris; G47.33 Obstructive sleep apnea (adult) (pediatric); I25.5 Ischemic cardiomyopathy; I50.42 Chronic combined systolic (congestive) and diastolic (congestive) heart failure; K21.9 Gastro-esophageal reflux disease without esophagitis; Z79.4 Long term (current) use of insulin; Z79.899 Other long term (current) drug therapy
CPT/HCPCS: 82962; 96372; 99285

== ENCOUNTER → 2021-06-10 13:29 | Outpatient (CLI) | payer MEDICARE, MEDICAID, SELFPAY ==
[2021-06-10 16:24] LABS: Absolute Lymphocyte Count 2.41 X10^3/uL (0.83-4.51); Absolute Neutrophil Count 6.4 X10^3/uL (2.0-7.7); Basophil# 0.04 X10^3/uL; Basophil% 0.4 % (0-1); Eosinophil# 0.06 X10^3/uL; Eosinophils% 0.6 % (0-5); Hematocrit 41.1 % (40-54); Lymphocyte # 2.41 X10^3/ul (0.83-4.51); Lymphocyte % 24.7 % (19-41); Mean Corp Hgb Conc 31.6 g/dL (32-36); Mean Corpuscular Hgb 29.4 pg (27.0-32.0); Monocyte# 0.77 X10^3/uL; Monocyte% 7.9 % (0-10); NRBC Flagged by Analyzer 0 % (0-5); Neutrophil # 6.43 X10^3/uL (2.7-7.7); Platelet Count 280 K/mm3 (150-450); RBC Distribution Width CV 13.7 % (11.6-14.6); RBC Distribution Width SD 46.5 fl (35.1-43.9); Red Blood Count 4.42 M/mm3 (4.6-6.2); White Blood Count 9.8 K/mm3 (4.4-11.0)
[2021-06-10 16:40] LABS: Vitamin D,25 Hydroxy 14.8 ng/mL
[2021-06-10 16:47] LABS: ALB/GLOB Ratio 0.9 RATIO (0.9-2.4); AST(SGOT) 19 U/L (15-37); Alanine Aminotransfer ALT/SGPT 32 U/L (16-61); Albumin, Serum 3.4 g/dL (3.2-5.0); Alkaline Phosphatase 124 U/L (45-117); Anion Gap 8 (5-15); BUN 10 mg/dL (7-18); BUN/Creat Ratio 13.3 RATIO (10-20); Calcium,Total 8.9 mg/dL (8.5-10.1); Chloride 107 mmol/L (98-107); Cholesterol 129 mg/dL (200); Creatinine, Serum 0.75 mg/dL (0.70-1.30); EST Glomerular Filtration Rate 110 mL/min (>60); Est Glom Filt Rate - Afr Amer 133 mL/min (>60); Globulin 3.8 g/dL (2.2-4.2); Glucose 198 mg/dL (74-106); High Density Lipoprotein 43 mg/dL; PSA,Total - Annual Screen 0.56 ng/mL (0.00-4.00); Potassium 3.8 mmol/L (3.5-5.1); Protein, Total 7.2 g/dL (6.4-8.2); Sodium Level 140 mmol/L (136-145); Thyroid Stim Hormone (TSH) 1.27 uIU/mL (0.358-3.74); Triglycerides 137 mg/dL; Very Low Density Lipoprotein 27 mg/dL (5-40)
== END ==
PROVIDERS: PCP Family Medicine Geriatric Medicine; Visit Provider Family Medicine Geriatric Medicine
DX: E11.9 Type 2 diabetes mellitus without complications (principal); E23.6 Other disorders of pituitary gland; E55.9 Vitamin D deficiency, unspecified; E78.5 Hyperlipidemia, unspecified; I10 Essential (primary) hypertension; Z12.5 Encounter for screening for malignant neoplasm of prostate
CPT/HCPCS: 36415; 80053; 80061; 82306; 84153; 84403; 84443; 85025; G0103

== ENCOUNTER 2021-08-27 10:31 | Outpatient (CLI) | payer MEDICARE, MEDICAID, SELFPAY ==
[2021-08-27 11:09] LABS: Amphetamine Urine VISTA NEGATIVE (<1000 ng/mL); Barbiturate Urine VISTA NEGATIVE (< 200 ng/mL); Benzodiazepine Urine VISTA NEGATIVE (< 200 ng/mL); Cocaine Urine VISTA NEGATIVE (< 300 ng/mL); Ecstacy Urine VISTA NEGATIVE (< 500 ng/mL); Methadone Urine VISTA NEGATIVE (< 300 ng/mL); PCP Urine VISTA NEGATIVE (< 25 ng/mL); THC Urine VISTA NEGATIVE (< 50 ng/mL); Vista UDS pH Range 5
== END 2021-08-27 23:59 | disposition home or self-care (01) ==
LOC: LABSPEC 10:35
PROVIDERS: PCP Family Medicine Geriatric Medicine; Referring Provider Anesthesiology Pain Medicine; Visit Provider Anesthesiology Pain Medicine
DX: F11.20 Opioid dependence, uncomplicated (principal)
CPT/HCPCS: 80307

== ENCOUNTER 2021-09-02 11:18 | Outpatient (CLI) | payer MEDICARE, MEDICAID, SELFPAY ==
--- NOTE | 2021-09-02 11:50 | RAD_ITS ---
STUDY: X-RAY CHEST REASON FOR EXAM: Male, 70 years old. MRI clearance. TECHNIQUE: PA and lateral views of the chest. COMPARISON: 12/23/2020. FINDINGS: The lungs are expanded. There is minimal interstitial changes at the right lung base with questionable small right pleural effusion Normal size heart. There is a ring like density at the level of the aortic valve suggesting valve replacement. Normal mediastinum and thu. Normal visualized pulmonary arteries. Normal visualized aortic arch and descending thoracic aorta. There is dextroscoliosis and degenerative changes of the thoracic spine There is degenerative osteoarthritis of the bilateral shoulders. There is no demonstrated abnormality of the visualized soft tissue structures of the upper abdomen. RAD/Chest PA and Lateral IMPRESSION: 1. There is no evidence of metallic foreign body within the confines of the images. 2. Evidence of aortic valve replacement. 3. Question small right pleural effusion with associated atelectasis infiltrate at the right lung base. Remainder of the findings appear unchanged. Electronically Signed: Waldo Blanco DO at 22:09 EST ,
== END 2021-09-02 23:59 | disposition home or self-care (01) ==
LOC: RAD 11:21
PROVIDERS: PCP Family Medicine Geriatric Medicine; Referring Provider Anesthesiology Pain Medicine; Visit Provider Anesthesiology Pain Medicine
DX: M19.011 Primary osteoarthritis, right shoulder (principal); M19.012 Primary osteoarthritis, left shoulder; J90 Pleural effusion, not elsewhere classified
CPT/HCPCS: 71046

== ENCOUNTER 2021-09-08 13:04 | Outpatient (CLI) | payer MEDICARE, MEDICAID, SELFPAY ==
[2021-09-08 16:09] LABS: Absolute Lymphocyte Count 1.78 X10^3/uL (0.83-4.51); Absolute Neutrophil Count 3.2 X10^3/uL (2.0-7.7); Basophil# 0.03 X10^3/uL; Basophil% 0.5 % (0-1); Eosinophil# 0.07 X10^3/uL; Eosinophils% 1.3 % (0-5); Hematocrit 39.2 % (40-54); Hemoglobin 12.2 g/dL (13.0-16.5); Lymphocyte # 1.78 X10^3/ul (0.83-4.51); Lymphocyte % 32.1 % (19-41); Mean Corp Hgb Conc 31.1 g/dL (32-36); Mean Corpuscular Hgb 27.5 pg (27.0-32.0); Mean Corpuscular Volume 88.3 fL (80-94); Mean Platelet Vol. 10.8 fl (6.2-12.0); Monocyte# 0.43 X10^3/uL; Monocyte% 7.8 % (0-10); NRBC Flagged by Analyzer 0 % (0-5); Neutrophil # 3.21 X10^3/uL (2.7-7.7); Neutrophil % 57.9 % (47-70); Platelet Count 223 K/mm3 (150-450); RBC Distribution Width CV 14.5 % (11.6-14.6); RBC Distribution Width SD 46.7 fl (35.1-43.9); Red Blood Count 4.44 M/mm3 (4.6-6.2); White Blood Count 5.5 K/mm3 (4.4-11.0)
[2021-09-08 16:39] LABS: ALB/GLOB Ratio 0.8 RATIO (0.9-2.4); AST(SGOT) 17 U/L (15-37); Alanine Aminotransfer ALT/SGPT 26 U/L (16-61); Albumin, Serum 3.1 g/dL (3.2-5.0); Alkaline Phosphatase 137 U/L (45-117); Anion Gap 7 (5-15); BUN 12 mg/dL (7-18); BUN/Creat Ratio 14.9 RATIO (10-20); Calcium,Total 8.7 mg/dL (8.5-10.1); Chloride 109 mmol/L (98-107); Creatinine, Serum 0.81 mg/dL (0.70-1.30); EST Glomerular Filtration Rate 101 mL/min (>60); Est Glom Filt Rate - Afr Amer 122 mL/min (>60); Globulin 3.7 g/dL (2.2-4.2); Glucose 118 mg/dL (74-106); Potassium 3.7 mmol/L (3.5-5.1); Protein, Total 6.8 g/dL (6.4-8.2); Sodium Level 142 mmol/L (136-145); Thyroid Stim Hormone (TSH) 1.61 uIU/mL (0.358-3.74)
[2021-09-08 16:44] LABS: Vitamin D,25 Hydroxy 17.4 ng/mL
== END 2021-09-08 23:59 | disposition home or self-care (01) ==
LOC: POLAB3 13:05
PROVIDERS: PCP Family Medicine Geriatric Medicine; Visit Provider Family Medicine Geriatric Medicine
DX: E11.9 Type 2 diabetes mellitus without complications (principal); E55.9 Vitamin D deficiency, unspecified; F52.8 Other sexual dysfunction not due to a substance or known physiological condition; I10 Essential (primary) hypertension
CPT/HCPCS: 36415; 80053; 82306; 84403; 84443; 85025

== ENCOUNTER 2021-09-15 10:17 | Outpatient (CLI) | payer MEDICARE, MEDICAID, SELFPAY ==
--- NOTE | 2021-09-15 10:21 | MRI_ITS ---
STUDY: MRI LUMBAR SPINE WITHOUT CONTRAST REASON FOR EXAM: Male, 70 years old. BACK PAIN, RIGHT foot numbness TECHNIQUE: Standardized fat and water weighted pulse sequences were obtained in the sagittal and axial planes. COMPARISON: MRI of the lumbar vertebra 2016 FINDINGS: No acute fracture or aggressive process. Normal lumbar lordosis. S-shaped scoliosis of the lumbar spine with dextroscoliosis in the upper levels and levoscoliosis in the lower levels. Normal conus medullaris that terminates at the L1 level. L1-2: Normal endplates. Normal mild disc space narrowing with a minimal disc spur complex. Mild to moderate facet joint hypertrophy. Normal central canal and bilateral lateral recesses. Normal bilateral intervertebral neural foramina. L2-3: Moderate to severe disc space narrowing with a diffuse disc osteophyte complex. Retrolisthesis of L2 on L3 of 4 to 5 mm. Mild facet joint hypertrophy. Posterior decompressive defect noted. Normal central canal. Mild bilateral lateral recess stenosis is present without nerve root compression. Mild to moderate bilateral foraminal stenosis without nerve root compression. L3-4: Retrolisthesis of L3 on L4 of 3 to 4 mm. Severe disc space narrowing with a diffuse disc osteophyte complex. Posterior decompressive defect noted. Mild to moderate facet joint hypertrophy is also present. Normal bilateral facet joints. Normal central canal and bilateral lateral recesses. Mild to moderate bilateral foraminal stenosis without nerve root compression. L4-5: Moderate disc space narrowing with a diffuse disc spur complex. Stable posterior decompressive defect. Moderate facet joint hypertrophy and degeneration. Normal central canal and bilateral lateral recesses. Moderate to severe right foraminal stenosis with nerve root compression. Normal left neural foramen. L5-S1: Stable interbody graft. Mild to moderate disc space narrowing with a diffuse disc spur complex. Posterior decompressive defect with chronic surgical scarring in the soft tissues. Mild left lateral recess stenosis is present due to mild hypertrophy of facet joint. Normal central canal and right lateral recess. Normal bilateral intervertebral neural foramina. Normal visualized sacral ala. There is mild paraspinal muscular atrophy. MRI/Spine Lumbar (Routine) IMPRESSION: 1. Multilevel degenerative changes, as described above. 2. Severe right foraminal stenosis with nerve root compression at L4-L5 Electronically Signed: Edilberto Hernandez MD at 14:42 EST ,
== END 2021-09-15 23:59 | disposition home or self-care (01) ==
LOC: MRI 10:19
PROVIDERS: PCP Family Medicine Geriatric Medicine; Referring Provider Anesthesiology Pain Medicine; Visit Provider Anesthesiology Pain Medicine
DX: M96.1 Postlaminectomy syndrome, not elsewhere classified (principal); M54.16 Radiculopathy, lumbar region
CPT/HCPCS: 72148

== ENCOUNTER 2021-09-21 13:32 | Inpatient (IN) | payer MEDICARE, MEDICAID, SELFPAY ==
[2021-09-21] VITALS (9 sets, daily range): BP systolic 147–165; BP diastolic 87–97; PULSE 94–110; RESP 16–26; TEMP 35.3–36.8; O2SAT 94–99; BMI 29.8
--- NOTE | 2021-09-21 14:08 | EKG12_ITS ---
Test Reason : Blood Pressure : / mmHG Vent. Rate : 101 BPM Atrial Rate : 101 BPM P-R Int : 224 ms QRS Dur : 080 ms QT Int : 356 ms P-R-T Axes : 031 005 094 degrees QTc Int : 461 ms Sinus tachycardia with 1st degree A-V block Septal infarct , age undetermined Inferior infarct , age undetermined Abnormal ECG Confirmed by EVARISTO CHAPA, JORDAN ([id number]), dictionary editor STANISLAV OVIEDO ([id number]) on 09/22/2021 9:56:47 AM Referred By: ESTRELLA Confirmed By:JORDAN LOERA MD
--- NOTE | 2021-09-21 14:11 | EX.ED.DYSGE1 ---
HPI History of Present Illness Chief Complaint: Weakness Informant: patient Narrative Narrative: History is limited due to patient's poor knowledge of current complaints or past history. He states everyone keeps asking why he is here and he is not sure but he has to be really sick for him to come in here. He knows he has had a heart attack. He knows he has diabetes. Did surgery on his heart and he thinks that this is for replacement of the valve but he does not know what type. When I asked why he is on Coumadin he states that is for his diabetes. I can get from the patient that he has been more short of breath recently. But I cannot get over what period of time that exists. He does have swelling of a chronic chest wound. He thinks that has been swelling over the last 6 months. He is denying chest pain. He is coughing and I believe he is bringing up clear sputum only. He has no fevers. He does have inhalers. He is using these and it sounds like they might help him somewhat. But he states he does not use them a lot. He is still smoking. Obtaining history beyond this was quite difficult. He just was not able to answer. Note that the patient is wide awake and alert. He is not lethargic or sleepy. I just think he does not have a good knowledge for his past medical history. [facility] Medical History Atherosclerosis of coronary artery without angina pectoris Bleeding disorder Chronic combined systolic and diastolic CHF (congestive heart failure) COPD (chronic obstructive pulmonary disease) Diabetic foot infection DVT (deep venous thrombosis) Gangrene of toe GERD (gastroesophageal reflux disease) History of non-ST elevation myocardial infarction (NSTEMI) (04/23/20) Ischemic cardiomyopathy Lumbar spinal stenosis MSSA (methicillin susceptible Staphylococcus aureus) infection Nicotine dependence Non-healing surgical wound (05/01/20) Nonrheumatic aortic (valve) stenosis 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 Obstructive sleep apnea Osteomyelitis Peripheral vascular occlusive disease Scabies infestation Secondary pulmonary arterial hypertension Sternal wound infection 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 foot with fat layer exposed Ulcer of right foot with necrosis of bone Home Medications metformin 500 mg tablet 500 mg PO BIDCM 05/31/20 [History Last Taken Unknown] metoprolol succinate 50 mg tablet,extended release 24 hr 75 mg PO DAILY 05/31/20 [History Last Taken 12/22/20] sennosides 8.6 mg-docusate sodium 50 mg capsule 1 tab-cap PO BID PRN cap 05/31/20 [History Last Taken Unknown] insulin aspart U-100 100 unit/mL subcutaneous solution 25 unit SC DAILY 06/30/20 [History Last Taken Unknown] polyethylene glycol 3350 17 gram/dose oral powder 17 g PO DAILY PRN 06/30/20 [History Last Taken Unknown] atorvastatin 40 mg PO QHS 11/12/20 [History Last Taken Unknown] insulin glargine [Lantus Solostar U-100 Insulin] 35 unit SUBCUT DAILY 11/12/20 [History Last Taken Unknown] warfarin 3 mg PO DAILY 11/12/20 [History Last Taken 12/22/20] acetaminophen [Tylenol Extra Strength] 1,000 mg PO Q6H PRN 12/23/20 [History Last Taken Unknown] ascorbic acid (vitamin C) [Vitamin C] 500 mg PO BID 12/23/20 [History Last Taken Unknown] aspirin [Aspir-81] 81 mg PO DAILY 12/23/20 [History Last Taken Unknown] caspofungin 50 mg IV Q24H 12/23/20 [History Last Taken Unknown] ferrous sulfate 325 mg PO DAILY 12/23/20 [History Last Taken Unknown] gabapentin 200 mg PO BID 12/23/20 [History Last Taken Unknown] insulin aspart U-100 [Novolog Flexpen U-100 Insulin] 20 unit SUBCUT BIDCM 12/23/20 [History Last Taken Unknown] linagliptin [Tradjenta] 5 mg PO DAILY 12/23/20 [History Last Taken Unknown] nystatin 1 applic TOPICAL DAILY PRN 12/23/20 [History Last Taken 12/22/20] omeprazole 40 mg PO DAILY 12/23/20 [History Last Taken 12/22/20] potassium chloride [K-Dur] 20 meq PO DAILY 12/23/20 [History Last Taken 12/22/20] enoxaparin 90 mg SUBCUT Q12@0600,1800 #6 ml 12/24/20 [Rx Last Taken Unknown] sacubitril-valsartan [Entresto] 1 tab PO BID 01/02/21 [History Last Taken Unknown] diazepam 5 mg PO Q8 PRN #10 tab 05/24/21 [Rx Last Taken Unknown] furosemide 40 mg PO DAILY 05/24/21 [History Last Taken Unknown] lisinopril 5 mg PO DAILY 05/24/21 [History Last Taken Unknown] oxycodone-acetaminophen 1 tab PO Q6H PRN PRN 5 Days #20 tablet 05/24/21 [Rx Last Taken Unknown] rosuvastatin 40 mg PO DAILY 05/24/21 [History Last Taken Unknown] tramadol 50 mg PO Q6H 05/24/21 [History Last Taken Unknown] Allergy/AdvReac Type Severity Reaction Status Date / Time No Known Allergies Allergy Verified 09/21/21 13:36 Family History Mother Diabetes Heart disease Father Diabetes Surgical History H/O coronary artery bypass surgery (05/01/20) History of angioplasty of peripheral vessel (01/02/10) History of femoropopliteal bypass (2008) History of incision and drainage (09/22/20) History of left heart catheterization (04/23/20) History of lumbar laminectomy History of mechanical aortic valve replacement Social History Smoking Status: Light Smoker (<10/day) alcohol intake: never substance use type: does not use caffeine: No ROS ROS ED Constitutional Constitutional ED: Denies fever(s) Eyes Eyes: Denies blurry vision ENT ENT ED: Denies rhinorrhea Cardiovascular Cardiovascular: Denies chest pain or palpitations Respiratory/Chest Respiratory/Chest: Reports cough and dyspnea; Denies sputum Gastrointestinal Gastrointestinal: Denies abdominal pain, nausea or vomiting Genitourinary Genitourinary ED: Denies dysuria Musculoskeletal Musculoskeletal: Denies myalgias Integumentary Denies rash Neurologic Neurologic: Denies paresthesias or weakness Allergic/Immunologic Allergic/Immunologic ED: Denies urticaria EXAM Physical Exam Const Vital Signs: 09/21/21 13:33 09/21/21 14:27 09/21/21 14:32 Temperature 95.5 F L Temperature Source Temporal Pulse Rate 110 H 105 H Respiratory Rate 17 26 H Respiratory Effort Normal Non-Labored Respiratory Pattern Normal Tachypnea Blood Pressure 155/88 H Blood Pressure Mean 110 Pulse Ox 98 Oxygen Delivery Method Room Air Positive well nourished and well developed Constitutional Narrative: Patient is lying back in bed. He is about 20 degrees up from flat. Saturations are normal on room air. I do hear wheezing when I walk in the room though. General Appearance ED: well developed and NAD; Negative for cyanotic HEENT Negative for trauma Eyes EOMs intact bilaterally Neck no lymphadenopathy and no JVD Chest Wall Chest Narrative: Patient has a very wide but healed sternal scar. It seems like there is likely been partials sternectomy. This area is somewhat swollen but is soft and nontender. Resp Resp Narrative: Effort seems slightly increased. He does have decreased breath sounds throughout greater at the right base. But he also has notable expiratory wheezes. I do not hear definitive rales or rhonchi. He is not coughing while I am in the room. Cardio regular rate and regular rhythm GI normal to inspection, nondistended, normoactive bowel sounds and non-tender Palpation: soft Back/Spine no CVA tenderness Extremity normal to inspection Extremity Narrative: No peripheral edema, cords, asymmetry or distended veins. No tenderness. Neuro oriented x3 Neuro Narrative: Patient is oriented x3. He is not at all sleepy or lethargic. No clinical indication of CO2 retention. Sensorium / Orientation: alert; Negative for lethargic or stuporous Skin no rashes or lesions noted MDM MDM MDM Narrative Medical decision making narrative: Patient's blood work shows essentially normal CBC other than minimal anemia that is not the cause of his symptoms. INR was therapeutic at 2.7. Glucose was a bit high at 346. Electrolytes show no marked abnormalities. Renal functions normal. Troponin was high at 92. BNP was high at 819. X-ray shows some signs of CHF and a right pleural effusion. Patient is evidently had this effusion drained. He is not sure how many times. I think with his poor ejection fraction rate ported to be at or below 35%, worsening CHF on Lasix, poor self-care and knowledge of illness the is not a good candidate to go home. I will give him a dose of Lasix here. He will be brought in the hospital for further treatment evaluation. Lab Data Attestation: I reviewed the patient's lab results. Labs: Laboratory Results - last 24 hr 09/21/21 09/21/21 09/21/21 14:15 14:15 14:15 WBC 4.6 RBC 4.48 L Hgb 12.0 L Hct 39.9 L MCV 89.1 MCH 26.8 L MCHC 30.1 L RDW Std Deviation 48.6 H RDW Coeff of Estrada 14.7 H Plt Count 200 MPV 10.8 Immature Gran % (Auto) 0.200 Neut % (Auto) 59.9 Lymph % (Auto) 28.6 Lee % (Auto) 8.7 Eos % (Auto) 1.5 Baso % (Auto) 1.1 H Absolute Neuts (auto) 2.7 Absolute Lymphs (auto) 1.31 Nucleated RBC % 0 PT 27.7 H INR 2.7 Sodium 141 Potassium 3.7 Chloride 111 H Carbon Dioxide 26.0 Anion Gap 4 L BUN 8 Creatinine 0.90 Estim Creat Clear Calc 83.67 Est GFR (MDRD) Af Amer 107 Est GFR (MDRD) Non-Af 89 BUN/Creatinine Ratio 8.9 L Glucose 346 H Calcium 8.5 Troponin I High Sens 92 H B-Natriuretic Peptide 09/21/21 14:15 WBC RBC Hgb Hct MCV MCH MCHC RDW Std Deviation RDW Coeff of Estrada Plt Count MPV Immature Gran % (Auto) Neut % (Auto) Lymph % (Auto) Lee % (Auto) Eos % (Auto) Baso % (Auto) Absolute Neuts (auto) Absolute Lymphs (auto) Nucleated RBC % PT INR Sodium Potassium Chloride Carbon Dioxide Anion Gap BUN Creatinine Estim Creat Clear Calc Est GFR (MDRD) Af Amer Est GFR (MDRD) Non-Af BUN/Creatinine Ratio Glucose Calcium Troponin I High Sens B-Natriuretic Peptide 819.6 H Radiography Diagnostic Testing: Clinical Impression(s) from Imaging Studies Chest X-Ray 09/21/21 14:45 IMPRESSION: Progressive increase in size of the right pleural effusion with right basilar infiltration and/or atelectasis. Electronically Signed: Lázaro Archer MD at 15:15 EST , EKG Initial EKG: Comments: EKG done for dyspnea read by me shows sinus rhythm with mild tachycardic rate at 101 and a slight first-degree AV block. Single ectopic likely ventricular leak. Nonspecific diffuse changes but no sign of acute infarct or ischemia. WA interval is long. QRS duration and QTc are normal. Discharge Plan Triage Chief Complaint: Weakness ED Provider: Booker Encarnacion Dx/Rx/DC Orders Clinical Impression: Congestive heart failure, Pleural effusion, right, Elevated troponin Prescriptions: No Action metoprolol succinate [Toprol XL] 50 mg tablet extended release 24 hr 75 mg PO DAILY RF: 0 metformin 500 mg tablet 500 mg PO BIDCM RF: 0 Senna Plus 8.6-50 mg capsule 1 tab-cap PO BID PRN (Reason: Constipation) RF: 0 polyethylene glycol 3350 [Miralax] 17 gram/dose powder 17 g PO DAILY PRN (Reason: Constipation) RF: 0 insulin aspart U-100 [Novolog U-100 Insulin aspart] 100 unit/mL solution 25 unit SC DAILY RF: 0 atorvastatin 40 mg Tablet 40 mg PO QHS RF: 0 warfarin 3 mg Tablet 3 mg PO DAILY RF: 0 Lantus Solostar U-100 Insulin 100 unit/mL (3 mL) Insulin Pen 35 unit SUBCUT DAILY RF: 0 aspirin [Aspir-81] 81 mg Tablet,Delayed Release (Dr/Ec) 81 mg PO DAILY RF: 0 potassium chloride [K-Dur] 20 mEq Tablet,Er Particles/Crystals 20 meq PO DAILY RF: 0 Tradjenta 5 mg Tablet 5 mg PO DAILY RF: 0 ascorbic acid (vitamin C) [Vitamin C] 500 mg Tablet 500 mg PO BID RF: 0 ferrous sulfate 325 mg (65 mg iron) Tablet 325 mg PO DAILY RF: 0 nystatin 100,000 unit/gram Powder 1 applic TOPICAL DAILY PRN (Reason: redness) RF: 0 caspofungin 50 mg Recon Soln 50 mg IV Q24H RF: 0 acetaminophen [Tylenol Extra Strength] 500 mg Capsule 1,000 mg PO Q6H PRN (Reason: Pain) RF: 0 gabapentin 100 mg Tablet 200 mg PO BID RF: 0 insulin aspart U-100 [Novolog Flexpen U-100 Insulin] 100 unit/mL (3 mL) insulin pen 20 unit SUBCUT BIDCM RF: 0 omeprazole 40 mg capsule,delayed release(DR/EC) 40 mg PO DAILY RF: 0 enoxaparin 100 mg/mL Syringe 90 mg subcut Q12@0600,1800 Qty: 6 RF: 0 Entresto 24-26 mg Tablet 1 tab PO BID RF: 0 lisinopril 5 mg tablet 5 mg PO DAILY RF: 0 furosemide 40 mg tablet 40 mg PO DAILY RF: 0 tramadol 50 mg tablet 50 mg PO Q6H RF: 0 rosuvastatin 40 mg tablet 40 mg PO DAILY RF: 0 oxycodone-acetaminophen [oxycodone-acetaminophen] 1 TABLET tablet 1 tab PO Q6H PRN PRN (Reason: pain) 5 Days Qty: 20 RF: 0 diazepam [diazepam] 5 MG tablet 5 mg PO Q8 PRN (Reason: Muscle Spasm) Qty: 10 RF: 0 Primary Care Provider: Saurabh Hernandez Chi Referrals: Saurabh Hernandez Chi, MD [Primary Care Provider] - Disposition Disposition: Acute Care Hospital [facility]
[2021-09-21] MEDS: Albuterol 2.5 MG/3 ML VIAL.NEB. INHALATION (14:27)
[2021-09-21] MEDS: Ipratropium/Albuterol Sulfate 3 ML AMPUL.NEB INHALATION (14:28)
[2021-09-21 14:33] LABS: Absolute Lymphocyte Count 1.31 X10^3/uL (0.83-4.51); Absolute Neutrophil Count 2.7 X10^3/uL (2.0-7.7); Basophil# 0.05 X10^3/uL; Basophil% 1.1 % (0-1); Eosinophil# 0.07 X10^3/uL; Eosinophils% 1.5 % (0-5); Hematocrit 39.9 % (40-54); Lymphocyte # 1.31 X10^3/ul (0.83-4.51); Lymphocyte % 28.6 % (19-41); Mean Corp Hgb Conc 30.1 g/dL (32-36); Mean Corpuscular Hgb 26.8 pg (27.0-32.0); Mean Corpuscular Volume 89.1 fL (80-94); Mean Platelet Vol. 10.8 fl (6.2-12.0); Monocyte% 8.7 % (0-10); NRBC Flagged by Analyzer 0 % (0-5); Neutrophil # 2.74 X10^3/uL (2.7-7.7); Neutrophil % 59.9 % (47-70); Platelet Count 200 K/mm3 (150-450); RBC Distribution Width CV 14.7 % (11.6-14.6); RBC Distribution Width SD 48.6 fl (35.1-43.9); Red Blood Count 4.48 M/mm3 (4.6-6.2); White Blood Count 4.6 K/mm3 (4.4-11.0)
--- NOTE | 2021-09-21 14:45 | RAD_ITS ---
STUDY: X-RAY CHEST REASON FOR EXAM: Male, 70 years old. SOB TECHNIQUE: Single AP portable view of the chest. COMPARISON: Comparison is made with prior study dated 09/02/2021. FINDINGS: EKG electrodes are seen. Since prior study, there has been progressive increase in the right pleural effusion with right basilar infiltration and/or atelectasis. There is no demonstrated pleural abnormality. Normal size heart. Normal mediastinum and thu. Normal visualized pulmonary arteries. Normal visualized aortic arch and descending thoracic aorta. There are diffuse degenerative changes of the visualized thoracic spine. Normal visualized ribs, clavicles, and shoulders. There is no demonstrated abnormality of the visualized soft tissue structures of the upper abdomen. RAD/Chest 1 View (Portable) IMPRESSION: Progressive increase in size of the right pleural effusion with right basilar infiltration and/or atelectasis. Electronically Signed: Lázaro Archer MD at 15:15 EST ,
[2021-09-21 14:46] LABS: International Normalized Ratio 2.7; Prothrombin Time (Protime)PT. 27.7 SECONDS (11.7-14.9)
[2021-09-21 14:50] LABS: Anion Gap 4 (5-15); BUN 8 mg/dL (7-18); BUN/Creat Ratio 8.9 RATIO (10-20); Calcium,Total 8.5 mg/dL (8.5-10.1); Chloride 111 mmol/L (98-107); EST Glomerular Filtration Rate 89 mL/min (>60); Est Glom Filt Rate - Afr Amer 107 mL/min (>60); Estimated Creatinine Clearance 83.67 ml/min; Glucose 346 mg/dL (74-106); Potassium 3.7 mmol/L (3.5-5.1); Sodium Level 141 mmol/L (136-145); Troponin-I HS 92 pg/mL (3.0-78.0)
[2021-09-21 15:02] LABS: BNP,B-Type NATRIURETIC PEPTIDE 819.6 pg/mL (0-100)
--- NOTE | 2021-09-21 15:28 | HP.PCM.HOS_ITS ---
[facility] - General General Date of Admission: 09/21/21 HPI Narrative RAPHAEL HADDAD, is a 70 M with an extensive PMH as outlined who presents with a complaint of weakness. Patient is a poor historian, but admitted to being short of breath recently. He says it has been worsening over the last few days. He had an associated cough productive of clear sputum. He denied any fever or chills, nausea, vomiting or diarrhea. Review of systems is otherwise negative. He is known to have mitral valve replacement and is on coumadin. He also claims compliance with his diuretic. Vitals showed NJ of 105, RR of 26 and his temp was 98% on room air. CBC showed wbc of 4.6, with Hb of 12 and platelets of 200. INR is 2.7. Chemistry showed sodium of 141 with K of 3.7 and Cr of 0.9. BNP is 819.6 and initial high sensitivity troponin was 92. CXR showed progressive increase in size of right pleural effusion with right basilar infiltration and or atelectasis. He is being admitted to be managed for recurrent right pleural effusion with acute on chronic HF. [facility] Medical History (Updated 09/21/21 @ 16:21 by Maricel Hernandez) Atherosclerosis of coronary artery without angina pectoris Bleeding disorder Chronic combined systolic and diastolic CHF (congestive heart failure) COPD (chronic obstructive pulmonary disease) Diabetic foot infection DVT (deep venous thrombosis) Gangrene of toe GERD (gastroesophageal reflux disease) History of non-ST elevation myocardial infarction (NSTEMI) (04/23/20) Ischemic cardiomyopathy Kidney stones Lumbar spinal stenosis MSSA (methicillin susceptible Staphylococcus aureus) infection Nicotine dependence Non-healing surgical wound (05/01/20) Nonrheumatic aortic (valve) stenosis 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 Obstructive sleep apnea Osteomyelitis Peripheral vascular occlusive disease Scabies infestation Secondary pulmonary arterial hypertension Smoker Sternal wound infection 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 foot with fat layer exposed Ulcer of right foot with necrosis of bone Home Medications metformin 500 mg tablet 500 mg PO BIDCM 05/31/20 [History Last Taken 09/21/21] metoprolol succinate 50 mg tablet,extended release 24 hr 75 mg PO DAILY 05/31/20 [History Last Taken 12/22/20] atorvastatin 40 mg PO QHS 11/12/20 [History Last Taken 09/20/21] insulin glargine [Lantus Solostar U-100 Insulin] 45 unit SUBCUT DAILY 11/12/20 [History Last Taken 09/20/21] acetaminophen [Tylenol Extra Strength] 1,000 mg PO Q6H PRN 12/23/20 [History Last Taken Unknown] ascorbic acid (vitamin C) [Vitamin C] 500 mg PO BID 12/23/20 [History Last Taken Unknown] ferrous sulfate 325 mg PO DAILY 12/23/20 [History Last Taken Unknown] insulin aspart U-100 [Novolog Flexpen U-100 Insulin] 20 unit SUBCUT BIDCM 12/23/20 [History Last Taken Unknown] nystatin 1 applic TOPICAL DAILY PRN 12/23/20 [History Last Taken 12/22/20] omeprazole 40 mg PO DAILY PRN 12/23/20 [History Last Taken 12/22/20] potassium chloride [K-Dur] 20 meq PO DAILY 12/23/20 [History Last Taken 12/22/20] sacubitril-valsartan [Entresto] 1 tab PO BID 01/02/21 [History Last Taken Unknown] diazepam 5 mg PO Q8 PRN #10 tab 05/24/21 [Rx Last Taken Unknown] lisinopril 5 mg PO DAILY 05/24/21 [History Last Taken Unknown] albuterol sulfate 2 puff INHALATION Q4H PRN 09/21/21 [History Last Taken Unknown] baclofen 10 mg PO TID PRN 09/21/21 [History Last Taken Unknown] gabapentin 1,200 mg PO BID 09/21/21 [History Last Taken 09/21/21] hydrocodone-acetaminophen 1 tab PO DAILY 09/21/21 [History Last Taken 09/21/21] multivitamin 1 tab PO DAILY 09/21/21 [History Last Taken 09/20/21] warfarin 4 mg PO DAILY 09/21/21 [History Last Taken 09/21/21] zolpidem 10 mg PO QHS PRN 09/21/21 [History Last Taken Unknown] Allergy/AdvReac Type Severity Reaction Status Date / Time No Known Allergies Allergy Verified 09/21/21 13:36 Family History Mother Diabetes Heart disease Father Diabetes Surgical History H/O coronary artery bypass surgery (05/01/20) History of angioplasty of peripheral vessel (01/02/10) History of femoropopliteal bypass (2008) History of incision and drainage (09/22/20) History of left heart catheterization (04/23/20) History of lumbar laminectomy History of mechanical aortic valve replacement Social History Smoking Status: Light Smoker (<10/day) alcohol intake: never substance use type: does not use caffeine: No ROS Constitutional Constitutional: Reports malaise and weakness; Denies anorexia, change in weight, chills, fatigue or fever(s) Eyes Eyes: Denies change in vision ENT HEENT: Denies headache(s), nasal congestion, nasal discharge or sore throat Cardiovascular Cardiovascular: Reports dyspnea on exertion; Denies chest pain, edema, lightheadedness, orthopnea, palpitations, paroxysmal nocturnal dyspnea, rapid heart rate or syncope Respiratory/Chest Respiratory/Chest: Reports cough, dyspnea, productive cough, shortness of breath at rest and shortness of breath with exertion; Denies excessive phlegm production, hemoptysis or wheezing Gastrointestinal Gastrointestinal: Denies abdominal pain, constipation or diarrhea Genitourinary Genitourinary: Denies burning urination, dysuria, nocturia, urinary hesitancy or urinary incontinence Musculoskeletal Musculoskeletal: Denies arthralgias, joint swelling or myalgias Neurologic Neurologic: Denies confusion, focal weakness or headache(s) Psychiatric Psychiatric: Denies anxiety Endocrine Endocrinology: Reports heat intolerance; Denies change in body appearance Vital Signs Vital Signs Vital Signs: 09/21/21 13:33 09/21/21 14:27 09/21/21 14:32 Temperature 95.5 F L Temperature Source Temporal Pulse Rate 110 H 105 H Respiratory Rate 17 26 H Respiratory Effort Normal Non-Labored Respiratory Pattern Normal Tachypnea Blood Pressure 155/88 H Blood Pressure Mean 110 Pulse Ox 98 Oxygen Delivery Method Room Air Weight Weight: 214 lb Body Mass Index (BMI) 29.8 Physical Exam Const alert and oriented x3 General Appearance: cooperative HEENT normocephalic, head/scalp atraumatic, hearing grossly normal bilaterally, moist oral mucous membranes and oropharynx normal Eyes PERRL and EOMs intact bilaterally Neck no lymphadenopathy Resp Resp Narrative: diminished breath sounds, especially in right mid and lower lung brown, on room air. Tachypneic Cardio regular rhythm, S1 normal heart sound, S2 normal heart sound and no murmurs Cardio Narrative: tachycardia GI normal to inspection, nondistended, normoactive bowel sounds, soft to palpation, non-tender and non-distended Extremity normal to inspection, full ROM and no clubbing, cyanosis or edema Peripheral Pulses: Yes pulses 2+ throughout Skin no rashes or lesions noted Skin Narrative: soft, nontender lesion over sternum, which is due to nonunion of sternum after aortic valve replacement. Neuro oriented x3, CN's II-XII intact bilaterally and moves all extremities Sensorium / Orientation: awake and alert Psych affect normal Results Lab / Micro Data Result Diagrams: 09/21/21 14:15 09/21/21 14:15 Labs: Laboratory Results - last 24 hr 09/21/21 14:15: WBC 4.6, RBC 4.48 L, Hgb 12.0 L, Hct 39.9 L, MCV 89.1, MCH 26.8 L, MCHC 30.1 L, RDW Std Deviation 48.6 H, RDW Coeff of Estrada 14.7 H, Plt Count 200, MPV 10.8, Immature Gran % (Auto) 0.200, Neut % (Auto) 59.9, Lymph % (Auto) 28.6, [place] % (Auto) 8.7, Eos % (Auto) 1.5, Baso % (Auto) 1.1 H, Absolute Neuts (auto) 2.7, Absolute Lymphs (auto) 1.31, Nucleated RBC % 0 09/21/21 14:15: PT 27.7 H, INR 2.7 09/21/21 14:15: Sodium 141, Potassium 3.7, Chloride 111 H, Carbon Dioxide 26.0, Anion Gap 4 L, BUN 8, Creatinine 0.90, Estim Creat Clear Calc 83.67, Est GFR (MDRD) Af Amer 107, Est GFR (MDRD) Non-Af 89, BUN/Creatinine Ratio 8.9 L, Glucose 346 H, Calcium 8.5, Troponin I High Sens 92 H 09/21/21 14:15: B-Natriuretic Peptide 819.6 H Micro: Microbiology 09/21/21 14:20 Nasal Secretion SARS-CoV-2 Antigen (Rapid) - Final Radiology Impression Chest X-Ray 09/21/21 14:45 IMPRESSION: Progressive increase in size of the right pleural effusion with right basilar infiltration and/or atelectasis. Electronically Signed: Lázaro Archer MD at 15:15 EST , Assessment & Plan Assessment/Plan (1) Congestive heart failure: (2) Pleural effusion, right: (3) Elevated troponin: PLAN: #Acute on chronic HFrEF * admit to PCu * BNP is elevated at ~ 870; EKG showed no acute ST changes * CXR showed progressive increase in right pleural effusion with right basilar infiltrate and/or atelectasis * diurese with IV lasix 40mg bid * monitor intake and output * fluid restriction to 1500cc daily * 2D echo from [place] in 2019 showed EF of 37%. * will order 2D echo * on entresto * #Right pleural effusion * likely due to heart failure exacerbation. * CXR as above * if it doesnt improve with diuresis, will need thoracentesis * #Elevated troponin * initial troponin is 92. No complaint of chest pain. May be due to troponin leak from heart failure * will cycle troponins and trend * EKG showed no acute ST changes * * 2D echo ordered as above. Consult cardiology if troponins trend upwards #COPD: not in exacerbation. Breathing treatment with bronchodilators #GERD: on PPI #Type 2 diabetes mellitus with neuropathy * on lantus 35 units daily. ISS. Accuchecks ACHS * on metformin and linagliptin * #Hypertension: on metoprolol. Hold lisinopril as patient is on entresto #History of aortic valve replacement: on coumadin. INR is therapeutic #Hyperlipidemia: on statin DVT prophylaxis: not indicated as patient is on coumadin with therapeutic inr CODE STATUS: Full code * Patient counseled extensively about different types of CODE STATUS including f ull code, DNR CCA and DNR CCA. Patient elects to be full code. * Total acos-pl-vrte time 16 minutes. Charges/Coding Visit Charges Inpatient E&M: 81864 Init Hosp L3 Procedures Hospitalists Procedures: 45166 Advncd Care Plan 30 Min
[2021-09-21] MEDS: Furosemide 40 MG/4 ML Vial IV ×2 (15:36→17:33)
[2021-09-21 17:21] LABS: Bedside Glucose 250 mg/dL (74-106)
[2021-09-21] MEDS: 0.9% Saline Lock 10 ML Syringe IV (17:33)
[2021-09-21 17:37] LABS: Troponin-I HS 96 pg/mL (3.0-78.0)
[2021-09-21 20:43] LABS: Troponin-I HS 102 pg/mL (3.0-78.0)
[2021-09-21] MEDS: Atorvastatin Calcium 40 MG Tablet PO (21:30)
[2021-09-21] MEDS: SACUBITRIL/VALSARTAN 24/26 MG TABLET 1 EACH PO (21:30)
[2021-09-21] MEDS: Insulin Lispro 100 UNIT/ML INSULN.PEN SC (21:34)
[2021-09-21 22:56] LABS: Bedside Glucose 304 mg/dL (74-106)
[2021-09-21 23:15] LABS: Magnesium 1.8 mg/dL (1.6-2.6)
[2021-09-22] VITALS (12 sets, daily range): BP systolic 93–160; BP diastolic 65–98; PULSE 69–96; RESP 17–22; TEMP 36.3–36.9; O2SAT 95–99
[2021-09-22] MEDS: Zolpidem Tartrate 5 MG Tablet 10 MG PO ×2 (00:03→21:47)
[2021-09-22] MEDS: 0.9% Saline Lock 10 ML Syringe IV ×2 (03:21→21:47)
--- NOTE | 2021-09-22 05:55 | ECHOCS_ITS ---
Reason For Study: CHF Procedure This was a 2D Doppler, Color Flow transthoracic echocardiogram. The study was technically difficult. Due to body habitus. Contrast injection was performed. Exam performed portable in patient room. Left Ventricle Normal LV size. The estimated ejection fraction is 30 %. Stage 3 diastolic dysfunction. There is moderate global hypokinesis of the left ventricle. Right Ventricle Normal RV size. Normal systolic function. Atria The left atrium is moderately enlarged. Normal right atrium. Mitral Valve There is moderate mitral annular calcification. Tricuspid Valve Normal tricuspid valve. Mild (1+) tricuspid valve insufficiency. Pulmonary artery systolic pressure is 37 mmHg. Aortic Valve Stable appearing bioprosthetic aortic valve apparatus. Medication Diluted definity 3.0ml given slow IV push to enhance endocardial definition. MMode/2D Measurements & Calculations LVIDd: 5.0 cm IVSd: 1.1 cm Ao root diam: 3.2 cm LVIDs: 4.4 cm LVPWd: 1.1 cm LA dimension: 4.7 cm RVDd: 3.4 cm FS: 11.4 % LAV(MOD-bp): 91.7 ml LA A4 area: 24.7 cm2 RA A4 area: 17.2 cm2 LAV(MOD-bp) Indexed: 42.2 ml/m2 LAV(MOD-sp2): 88.0 ml LAV(MOD-sp4): 88.2 ml Time Measurements MV dec time: 0.13 sec Doppler Measurements & Calculations MV E max brian: 100.4 cm/sec Lat Peak E' Brian: 5.9 cm/sec Med Peak E' Brian: 9.0 cm/sec MV A max brian: 55.8 cm/sec E/E' lat: 16.9 E/E' med: 11.1 MV E/A: 1.8 Ao V2 max: 172.7 cm/sec LV V1 max: 65.3 cm/sec PA V2 max: 62.1 cm/sec Ao max P.9 mmHg LV V1 max P.7 mmHg Ao V2 mean: 114.8 cm/sec LV V1 mean P.81 mmHg Ao mean P.0 mmHg LV V1 mean: 42.3 cm/sec Ao V2 VTI: 25.2 cm LV V1 VTI: 10.6 cm TR max brian: 286.0 cm/sec TR max P.8 mmHg ECHO/Echo Complete W/ Contrast Interpretation Summary Normal LV size. The estimated ejection fraction is 30 %. There is moderate global hypokinesis of the left ventricle. Stage 3 diastolic dysfunction. Stable appearing bioprosthetic aortic valve apparatus. Ordering Physician: Cami Nance Referring Physician: Saurabh Hernandez Chi Performed By: Mariam Laboy, JOCELYN, RVT
[2021-09-22 06:48] LABS: Absolute Lymphocyte Count 1.51 X10^3/uL (0.83-4.51); Absolute Neutrophil Count 4.1 X10^3/uL (2.0-7.7); Basophil# 0.05 X10^3/uL; Basophil% 0.8 % (0-1); Eosinophil# 0.16 X10^3/uL; Eosinophils% 2.5 % (0-5); Hematocrit 41.6 % (40-54); Hemoglobin 12.6 g/dL (13.0-16.5); Lymphocyte # 1.51 X10^3/ul (0.83-4.51); Lymphocyte % 23.4 % (19-41); Mean Corp Hgb Conc 30.3 g/dL (32-36); Mean Corpuscular Hgb 27.1 pg (27.0-32.0); Mean Corpuscular Volume 89.5 fL (80-94); Mean Platelet Vol. 10.6 fl (6.2-12.0); Monocyte# 0.63 X10^3/uL; Monocyte% 9.8 % (0-10); NRBC Flagged by Analyzer 0 % (0-5); Neutrophil # 4.09 X10^3/uL (2.7-7.7); Neutrophil % 63.2 % (47-70); Platelet Count 212 K/mm3 (150-450); RBC Distribution Width CV 14.8 % (11.6-14.6); RBC Distribution Width SD 48.7 fl (35.1-43.9); Red Blood Count 4.65 M/mm3 (4.6-6.2); White Blood Count 6.5 K/mm3 (4.4-11.0)
[2021-09-22] MEDS: Acetaminophen 325 MG Tablet 650 MG PO ×2 (07:00→13:31)
[2021-09-22 07:16] LABS: BUN 8 mg/dL (7-18); Creatinine, Serum 0.74 mg/dL (0.70-1.30); Glucose 180 mg/dL (74-106)
[2021-09-22 07:17] LABS: Anion Gap 4 (5-15); BUN/Creat Ratio 10.9 RATIO (10-20); Calcium,Total 8.3 mg/dL (8.5-10.1); Chloride 107 mmol/L (98-107); EST Glomerular Filtration Rate 112 mL/min (>60); Est Glom Filt Rate - Afr Amer 136 mL/min (>60); Potassium 3.8 mmol/L (3.5-5.1); Sodium Level 138 mmol/L (136-145)
[2021-09-22 07:46] LABS: Bedside Glucose 197 mg/dL (74-106)
[2021-09-22] MEDS: SACUBITRIL/VALSARTAN 24/26 MG TABLET 1 EACH PO ×2 (08:19→21:51)
[2021-09-22] MEDS: Gabapentin 600 MG Tablet 1200 MG PO ×2 (08:20→16:37)
[2021-09-22] MEDS: Potassium Chloride Oral Tablet 20 MEQ PO (08:20)
[2021-09-22] MEDS: Metoprolol(XL)Succ 25 MG Tablet 75 MG PO (08:20)
[2021-09-22] MEDS: Lisinopril 5 MG Tablet PO (08:20)
[2021-09-22] MEDS: Furosemide 40 MG/4 ML Vial IV ×2 (08:21→18:02)
[2021-09-22] MEDS: Insulin Lispro 100 UNIT/ML INSULN.PEN SC ×3 (09:02→16:35)
[2021-09-22] MEDS: Insulin Lispro 100 UNIT/ML INSULN.PEN 20 UNIT SC ×2 (09:02→16:38)
[2021-09-22 11:10] LABS: Bedside Glucose 204 mg/dL (74-106)
--- NOTE | 2021-09-22 13:20 | CASEMGMT ---
HERMINIA STANFORD assessment: Face to face initial transition planning/care coordination assessment. HERMINIA STANFORD introduced self and role at [facility], pt voices understanding and consents to assessment at this time. Pt is sitting up in bed in no distress on room air at this time. Pt is A/Ox4 at this time and answers all questions appropriately at this time. Care providers, pharmacy, and demographics verified at this time. Presentation: Pt has what appears as a mass in his chest one month ago-states he is SOB and weak x4 days, thinks its because he has more water on chest Admitting dx: CHF, elev troponins PCP: David Specialists: Praveen, cardio; Guy, PM; Pt was supposed to see Dr. Nicolas Carson but states had co-pays at that time and was not able to cover Preferred [facility]acy: [facility] [employer] [facility] Prescription Benefit: Yes Living Will/HPOA: Pt has LW/HPOA and is aware that they are on file at [facility]. Pt's cousin/roommate, Mariam Bai, is HPOA. LNOK: Mariam Bai, cousin/HPOA Living Arrangements: Pt states lives with cousin, Mariam Bai, in duplex with 13 steps into home and states no concerns at home at this time. Pt states is independent with ADL's. Pt states that the bed bugs in the home have 'pretty much' been taken care of. Transportation: Pt states drives self and states no transportation concerns at this time. DME/HHC: Pt states has the following DME: w/c, walker, rollator, hand held shower, and shower chair. Pt states no need for any further DME at this time. Pt states no hx of HHC but has been to [facility], [place] x2, and [facility] in the past. Pt states no concerns with going home at time of discharge. Pt states is retired. Pt states smokes about a 3-4 cigarettes daily and does not drink ETOH. Pt states no further concerns/needs at this time. CM to follow for PT/OT evals and any further discharge planning/needs. Advised pt to ask for CM if any further questions/concerns/needs arise, voices understanding. Pt Goal: Home Plan[place] HERMINIA STANFORD
[2021-09-22] MEDS: Ferrous Sulfate 325 MG Tablet PO (16:38)
[2021-09-22 16:46] LABS: Bedside Glucose 168 mg/dL (74-106)
--- NOTE | 2021-09-22 18:09 | PN.HOSP_ITS ---
Subjective Subjective Patient was seen and examined today, patient was a poor informant, he states that the last time he went to see his rockboard lather was years ago-he thinks it was Dr. Morton that he saw in the past. Patient just follows up with his PCP. Patient states he is taking Coumadin, his INR was 2.7 on admission. Patient has a past history of valve replacement which she states is a tissue valve- information on the patient's medical chart reveals that he has a mechanical heart valve.. At the time of my dictation patient is on room air, echocardiogram today showed a reduced ejection fraction at 30%. Objective Data Objective Data Vital Signs: Vital Signs Temp Pulse Resp BP Pulse Ox 97.3 F L 78 20 H 111/65 97 09/22/21 17:50 09/22/21 17:50 09/22/21 17:50 09/22/21 17:50 09/22/21 17:50 Oxygen Flow Rate (L/min) 2 Oxygen Delivery Method Room Air Weight: 97.1 kg Body Mass Index (BMI) 29.8 Intake & Output: Intake and Output for Last 24 Hours 09/20/21 09/21/21 09/22/21 23:59 23:59 23:59 Intake Total 240 / 240 530 / 530 Output Total 1950 / 1950 2100 / 2100 Balance -1710 / -1710 -1570 / -1570 Lab / Micro Data Result Diagrams: 09/22/21 05:14 09/22/21 05:14 Labs: Laboratory Results - last 24 hr 09/21/21 19:57: Troponin I High Sens 102 H 09/21/21 19:57: Magnesium 1.8 09/21/21 21:30: POC Glucose 304 H 09/22/21 05:14: WBC 6.5, RBC 4.65, Hgb 12.6 L, Hct 41.6, MCV 89.5, MCH 27.1, MCHC 30.3 L, RDW Std Deviation 48.7 H, RDW Coeff of Estrada 14.8 H, Plt Count 212, MPV 10.6, Immature Gran % (Auto) 0.300, Neut % (Auto) 63.2, Lymph % (Auto) 23.4, [place] % (Auto) 9.8, Eos % (Auto) 2.5, Baso % (Auto) 0.8, Absolute Neuts (auto) 4.1, Absolute Lymphs (auto) 1.51, Nucleated RBC % 0 09/22/21 05:14: Sodium 138, Potassium 3.8, Chloride 107, Carbon Dioxide 27.0, Anion Gap 4 L, BUN 8, Creatinine 0.74, Estim Creat Clear Calc 75.30, Est GFR (MDRD) Af Amer 136, Est GFR (MDRD) Non-Af 112, BUN/Creatinine Ratio 10.9, Glucose 180 H, Calcium 8.3 L 09/22/21 07:30: POC Glucose 197 H 09/22/21 10:59: POC Glucose 204 H 09/22/21 16:33: POC Glucose 168 H Micro: Microbiology 09/21/21 14:20 Nasal Secretion SARS-CoV-2 Antigen (Rapid) - Final Radiography Diagnostic Testing: Radiology Impression Echocardiogram 09/22/21 05:55 Interpretation Summary Normal LV size. The estimated ejection fraction is 30 %. There is moderate global hypokinesis of the left ventricle. Stage 3 diastolic dysfunction. Stable appearing bioprosthetic aortic valve apparatus. Ordering Physician: Cami Nance Referring Physician: Saurabh Hernandez Chi Performed By: Mariam Laboy, JOCELYN, RVT Physical Exam Const alert, oriented x3 and no apparent distress General Appearance: cooperative, well kempt and well developed Orientation / Consciousness: awake, oriented to person, oriented to place and oriented to time HEENT normocephalic and moist oral mucous membranes Eyes PERRL, EOMs intact bilaterally and conjunctivae normal Neck nuchal rigidity, supple, no JVD and thyroid normal General: trachea midline Resp normal respiratory effort, no retractions, no use of accessory muscles and clear to auscultation bilaterally Auscultation: wheezes scattered wheezes; Negative for rales or rhonchi Cardio regular rate, regular rhythm, no murmurs, no rub and no gallops Cardio Narrative: There is mechanical click noted over the patient's precordium indicative of mechanical heart valve GI normal to inspection, nondistended, normoactive bowel sounds, soft to palpation, non-tender and non-distended Extremity no clubbing, cyanosis or edema Skin Skin Narrative: There is evidence of a large tissue graft present over the e ntire sternal area, this area does not appear to be tender, there is no discharge from the area and the area is well-healed General Skin Exam: no breakdown Neuro oriented x3, CN's II-XII intact bilaterally, no focal motor deficits and no s ensory deficits noted Sensorium / Orientation: awake and alert Speech: speech normal Psych affect normal Assessment & Plan Assessment/Plan (1) Hyperlipidemia: QUALIFIERS: Hyperlipidemia type: unspecified Qualified Code(s): E78.5 - Hyperlipidemia, unspecified PLAN: 1. Acute on chronic systolic congestive heart failure-patient is currently on Entresto, Toprol XL, and is receiving IV Lasix twice a day. He is also currently receiving lisinopril which I will stop. Patient does not have furosemide listed on his home medications, he will need to be discharged on furosemide when he goes home. #2 acute hypoxic respiratory failure-secondary to #1-patient is currently on room air, his pulse ox will be monitored. #3 ischemic cardiomyopathy-patient is currently on Toprol and Entresto #4 mechanical aortic valve-patient is currently on Coumadin, his INR is therapeutic #5 atherosclerotic heart disease-this appears stable at this time #6 essential hypertension-continue present medications #7 hyperlipidemia-patient is on Lipitor #8 chronic obstructive pulmonary disease-patient is on albuterol aerosols #9 type 2 diabetes-patient is currently on sliding scale insulin, he is also receiving Lantus Patient will need follow-up with cardiology as an outpatient Charges/Coding Visit Charges Inpatient E&M: 58099 Subs Hosp L2
[2021-09-22] MEDS: Atorvastatin Calcium 40 MG Tablet PO (21:52)
[2021-09-22 22:27] LABS: Bedside Glucose 101 mg/dL (74-106)
[2021-09-23] VITALS (7 sets, daily range): BP systolic 104–123; BP diastolic 59–62; PULSE 74–83; RESP 18; TEMP 36.4; O2SAT 95–98
[2021-09-23 06:17] LABS: International Normalized Ratio 2.3; Prothrombin Time (Protime)PT. 24.4 SECONDS (11.7-14.9)
[2021-09-23 06:30] LABS: Anion Gap 4 (5-15); BUN 21 mg/dL (7-18); BUN/Creat Ratio 23.3 RATIO (10-20); Chloride 109 mmol/L (98-107); EST Glomerular Filtration Rate 89 mL/min (>60); Est Glom Filt Rate - Afr Amer 107 mL/min (>60); Estimated Creatinine Clearance 83.67 ml/min; Glucose 83 mg/dL (74-106); Potassium 3.7 mmol/L (3.5-5.1); Sodium Level 140 mmol/L (136-145)
[2021-09-23] MEDS: Acetaminophen 325 MG Tablet 650 MG PO (07:43)
[2021-09-23] MEDS: Gabapentin 600 MG Tablet 1200 MG PO (07:44)
[2021-09-23] MEDS: Potassium Chloride Oral Tablet 20 MEQ PO (07:45)
[2021-09-23] MEDS: Insulin Lispro 100 UNIT/ML INSULN.PEN 20 UNIT SC (07:48)
[2021-09-23 08:26] LABS: Bedside Glucose 102 mg/dL (74-106)
[2021-09-23] MEDS: SACUBITRIL/VALSARTAN 24/26 MG TABLET 1 EACH PO (08:44)
[2021-09-23] MEDS: Metoprolol(XL)Succ 25 MG Tablet 75 MG PO (08:44)
[2021-09-23] MEDS: 0.9% Saline Lock 10 ML Syringe IV (08:44)
[2021-09-23] MEDS: Furosemide 40 MG/4 ML Vial IV (08:44)
--- NOTE | 2021-09-23 10:49 | DS.PCM_ITS ---
Providers Date of Admission: 09/21/21 Date of Discharge: 09/23/21 Primary Care Physician: Dr. Saurabh Hernandez MD Reason For Visit: CHF, ELEVATED TROPONIN Diagnosis Discharge Diagnosis (1) Hyperlipidemia: Status: Chronic Code(s): E78.5 - Hyperlipidemia, unspecified Qualifiers: Hyperlipidemia type: unspecified Qualified Code(s): E78.5 - Hyperlipidemia, unspecified (2) Acute on chronic systolic heart failure: Status: Chronic Code(s): I50.23 - Acute on chronic systolic (congestive) heart failure Medications at Discharge Home Medications metformin 500 mg tablet 500 mg PO BIDCM 05/31/20 metoprolol succinate 50 mg tablet,extended release 24 hr 75 mg PO DAILY 05/31/20 Lantus Solostar U-100 Insulin 45 unit SUBCUT DAILY 11/12/20 atorvastatin 40 mg PO QHS 11/12/20 acetaminophen 1,000 mg PO Q6H PRN 12/23/20 ascorbic acid (vitamin C) [Vitamin C] 500 mg PO BID 12/23/20 ferrous sulfate 325 mg PO DAILY 12/23/20 insulin aspart U-100 [Novolog Flexpen U-100 Insulin] 20 unit SUBCUT BIDCM 03/07 nystatin 1 applic TOPICAL DAILY PRN 12/23/20 omeprazole 40 mg PO DAILY PRN 12/23/20 potassium chloride 20 meq PO DAILY 12/23/20 Entresto 1 tab PO BID 01/02/21 diazepam 5 mg PO Q8 PRN #10 tab 05/24/21 albuterol sulfate 2 puff INHALATION Q4H PRN 09/21/21 baclofen 10 mg PO TID PRN 09/21/21 gabapentin 1,200 mg PO BID 09/21/21 hydrocodone-acetaminophen 1 tab PO DAILY 09/21/21 multivitamin 1 tab PO DAILY 09/21/21 warfarin 4 mg PO DAILY 09/21/21 zolpidem 10 mg PO QHS PRN 09/21/21 furosemide [Lasix] 40 mg PO BID #60 tab 09/23/21 Hospital Course Operations None Procedures 2-D Echocardiogram Summary of Care Provided Minutes Spent on Discharge: 37 Hospital Course: Mr. Mathew is a 70-year-old white male who presented to the emergency department was [facility] on 09/21/2021 with a chief complaint of weakness and progressively worsening shortness of breath. He indicated he had started a few days prior and had been associated of a productive cough with clear sputum. He denied any fever or chills, nausea or vomiting, and no constipation or diarrhea. He was noted to have atrial valve replacement with mechanical valves and on Coumadin chronically for this. He does state that he is compliant at home with his therapies for his heart however it appears that he has not consistently gone to follow-up and is still smoking. Vital signs in the emergency department showed that he was mildly tachycardic with a heart rate of 105 and had an elevated respiratory rate at 26 however his oxygenation was stable on room air. His CBC was unremarkable. His INR was 2.7 and in goal range for a mechanical aortic valve. His BMP showed no significant abnormalities however his BNP was markedly elevated 819.6. He also had a mildly elevated high-sensitivity troponin at 92. Upon review of previous troponin it appears he always has an elevated troponin and that this is not markedly off his baseline. His chest x-ray showed small to mild right pleural effusion with some compression atelectasis suspected and his EKG showed mild tachycardia with a first-degree AV block, a single PVC but no acute changes suggestive of ischemia. He was admitted to the medical floor and placed on IV diuresis with Lasix 40 mg IV twice daily. During his hospitalization he was down approximately 3-1/2 L and reported he was feeling much better on the day of discharge than upon presentation. His med rec showed that he was on Entresto and lisinopril. Lisinopril was discontinued during his hospitalization given the redundancy of the medication orders. His cardiac enzymes were cycled and found to be 92-96-102 respectively. When compared to previous lab work it appears he always has a mildly elevated high-sensitivity troponin and I suspect that this is a chronic troponin leak. An echocardiogram was performed and demonstrated an EF of 30% with moderate global hypokinesis of the LV and stage III diastolic dysfunction with a stable appearing bioprosthetic aortic valve. It was reported in previous documentation that this is a mechanical valve and I suspect this is why he is on Coumadin at baseline. This was compared to his most recent echo which was done at [facility] on 05/06/2020 and was stable. Of note he did have a heart catheterization done at that time which showed diffuse CAD involving the LAD and circumflex artery with no areas of focal high- grade stenosis and a totally occluded RCA with left to right collaterals and basal inferior akinetic zone with an EF of 37% ?5% and medical therapy was recommended at that time. We were able to convert his Lasix to oral on 09/23/2021 with 40 mg p.o. twice daily being the discharge dose. He remained on room air and was stable throughout his hospitalization. The patient has had compliance issues previously and was recommended to follow-up closely with cardiology after discharge. An appointment was made for him with Dr. Morton's office to see his nurse practitioner on 09/30/2021. He was discharged in stable condition on 09/23/2021. It was recommended that he have a follow-up basic metabolic profile in approximately 1 week to assess his renal function and potassium with the scheduled Lasix dosing and we have asked him to either ask his primary care physician or cardiology to address this. We also discussed with him the importance of fluid restriction and salt restriction and avoiding recurrent hospitalizations for heart failure. His right pleural effusion may need to be reevaluated if his respiratory status changes. Discharge diagnoses: Acute on chronic combined (systolic/diastolic) heart failure Right pleural effusion Chronic troponin elevation Chronic mild normocytic anemia History of aortic valve disease status post mechanical valve replacement DM-2 HTN HPL Ischemic cardiomyopathy Secondary pulmonary artery hypertension-who group 2 and 3 COPD Ongoing tobacco abuse History of diabetic foot infection History of DVT GERD History of nephrolithiasis Lumbar spinal stenosis BEATRICE-noncompliant Physical Exam Const alert, oriented x3 and no apparent distress Constitutional Narrative: Overweight upper middle-aged white male who appears much older than stated age, sitting up in bed watching TV, appears comfortable and nontoxic General Appearance: cooperative, comfortable and well developed Orientation / Consciousness: awake Exam Limitations: no limitations Nutritional Appearance: overweight HEENT normocephalic, head/scalp atraumatic and moist oral mucous membranes; Negative for hearing grossly normal bilaterally HEENT Narrative: Hard of hearing, dentition is fair, Mallampati is 2-3, no thrush present Eyes PERRL, EOMs intact bilaterally and conjunctivae normal Eyes Narrative: No scleral icterus Neck no lymphadenopathy, supple and no JVD Neck Narrative: Trachea midline Resp normal respiratory effort, no retractions and no use of accessory muscles Resp Narrative: Diffusely diminished with diminishment noted to be greatest at right base but no adventitious sounds Auscultation: Negative for crackles, rales, rhonchi or wheezes Cardio regular rate, regular rhythm, S1 normal heart sound, S2 normal heart sound, no murmurs, no rub, no gallops, no clicks and no JVD GI normal to inspection, nondistended, normoactive bowel sounds, soft to palpation, non-tender and non-distended Extremity no clubbing, cyanosis or edema Skin no rashes or lesions noted, no wounds, skin turgor normal and no jaundice Skin Narrative: Nicotine stains on right index and middle finger Neuro oriented x3, CN's II-XII intact bilaterally, moves all extremities, no focal motor deficits and no sensory deficits noted Neuro Narrative: Mild generalized weakness Sensorium / Orientation: awake and alert Speech: speech normal Psych affect normal Weight / BMI Weight Weight: 97.1 kg Body Mass Index (BMI) 29.8 ABG / Lab / Microbiology Data Result Diagrams: 09/22/21 05:14 09/23/21 05:16 Laboratory: Laboratory Results - last 24 hr 09/22/21 10:59: POC Glucose 204 H 09/22/21 16:33: POC Glucose 168 H 09/22/21 21:46: POC Glucose 101 09/23/21 05:16: PT 24.4 H, INR 2.3 09/23/21 05:16: Sodium 140, Potassium 3.7, Chloride 109 H, Carbon Dioxide 27.0, Anion Gap 4 L, BUN 21 H, Creatinine 0.90, Estim Creat Clear Calc 83.67, Est GFR (MDRD) Af Amer 107, Est GFR (MDRD) Non-Af 89, BUN/Creatinine Ratio 23.3 H, Glucose 83, Calcium 8.0 L 09/23/21 07:47: POC Glucose 102 Microbiology: Microbiology 09/21/21 14:20 Nasal Secretion SARS-CoV-2 Antigen (Rapid) - Final D/C Instructions Discharge Diet: Low fat / Low cholesterol, 1800 Calorie Control Diet, 8 Cup Fluid Restriction and 2000 mg Sodium Diet Discharge Activity: Return to Normal Activity Meaningful Use Info Meaningful Use Diagnoses (Choose all that apply): CHF CHF SELMA/ARB ordered at discharge?: Yes Documented LVEF (%): 30 Discharge Plan Admission Admit Date/Time: 09/21/21 16:04 Primary Reason for Your Visit: Shortness of breath/weakness Attending Provider: Vera Ochoa Primary Care Provider: Saurabh Hernandez Chi Instructions Additional Instructions / Restrictions: 1. Will need follow up Basic Metabolic Profile in 1 week -Please have PCP or Cardiology order 2. Fluid restriction of 1.5 liters per day 2. Watch Salt intake Discharge Orders/Prescriptions Prescriptions: New furosemide [Lasix] 40 mg tablet 40 mg PO BID Qty: 60 RF: 0 Continued metoprolol succinate [Toprol XL] 50 mg tablet extended release 24 hr 75 mg PO DAILY RF: 0 metformin 500 mg tablet 500 mg PO BIDCM RF: 0 atorvastatin 40 mg Tablet 40 mg PO QHS RF: 0 Lantus Solostar U-100 Insulin 100 unit/mL (3 mL) Insulin Pen 45 unit SUBCUT DAILY RF: 0 potassium chloride 20 mEq Tablet,Er Particles/Crystals 20 meq PO DAILY RF: 0 ascorbic acid (vitamin C) [Vitamin C] 500 mg Tablet 500 mg PO BID RF: 0 ferrous sulfate 325 mg (65 mg iron) Tablet 325 mg PO DAILY RF: 0 nystatin 100,000 unit/gram Powder 1 applic TOPICAL DAILY PRN (Reason: redness) RF: 0 acetaminophen 500 mg Capsule 1,000 mg PO Q6H PRN (Reason: Pain) RF: 0 insulin aspart U-100 [Novolog Flexpen U-100 Insulin] 100 unit/mL (3 mL) insulin pen 20 unit SUBCUT BIDCM RF: 0 omeprazole 40 mg capsule,delayed release(DR/EC) 40 mg PO DAILY PRN (Reason: gerd) RF: 0 Entresto 24-26 mg Tablet 1 tab PO BID RF: 0 diazepam 5 MG tablet 5 mg PO Q8 PRN (Reason: Muscle Spasm) Qty: 10 RF: 0 hydrocodone-acetaminophen 5-325 mg tablet 1 tab PO DAILY RF: 0 zolpidem 10 mg tablet 10 mg PO QHS PRN (Reason: Sleep) RF: 0 albuterol sulfate 90 mcg/actuation HFA aerosol inhaler 2 puff INHALATION Q4H PRN (Reason: Shortness Of Breath) RF: 0 multivitamin Tablet 1 tab PO DAILY RF: 0 gabapentin 600 mg tablet 1,200 mg PO BID RF: 0 warfarin 4 mg Tablet 4 mg PO DAILY RF: 0 baclofen 10 mg tablet 10 mg PO TID PRN (Reason: muscle spasms) RF: 0 Discontinued lisinopril 5 mg tablet 5 mg PO DAILY RF: 0 Referrals / Follow Up: Saurabh Hernandez Chi, MD [Primary Care Provider] - Dhara Casas PA [PHYSICIAN BIG DATA ADMIN] - 09/30/21 2:00 pm (Pt is scheduled with Dhara Rudolph at [facility] on 09-30-21 @ 2:00pm ) Disposition Disposition (needs filled in before D/C Order can be placed): Home, Self Care Charges/Coding Visit Charges Inpatient E&M: 49058 Disch Hosp
[2021-09-23 11:07] LABS: Bedside Glucose 135 mg/dL (74-106)
--- NOTE | 2021-09-23 11:28 | CASEMGMT ---
Pt has been on room air and states no concerns with going home at time of discharge. Pt has DME at home, if needed. Tj HPOE CM
== END 2021-09-23 12:50 | disposition home or self-care (01) | DRG 291 ==
LOC: ED 15:37 → PCU 15:47
PROVIDERS: Internal Medicine; Nurse Practitioner Family; Admitting Provider Student in an Organized Health Care Education/Training Program; Emergency Provider Emergency Medicine; PCP Family Medicine Geriatric Medicine; Visit Provider Internal Medicine
DX: I11.0 Hypertensive heart disease with heart failure (principal); I50.43 Acute on chronic combined systolic (congestive) and diastolic (congestive) heart failure; I27.21 Secondary pulmonary arterial hypertension; E11.42 Type 2 diabetes mellitus with diabetic polyneuropathy; E11.51 Type 2 diabetes mellitus with diabetic peripheral angiopathy without gangrene; D64.9 Anemia, unspecified; E78.5 Hyperlipidemia, unspecified; J44.9 Chronic obstructive pulmonary disease, unspecified; Z79.4 Long term (current) use of insulin; I25.10 Atherosclerotic heart disease of native coronary artery without angina pectoris; I25.5 Ischemic cardiomyopathy; K21.9 Gastro-esophageal reflux disease without esophagitis; F17.200 Nicotine dependence, unspecified, uncomplicated; M48.061 Spinal stenosis, lumbar region without neurogenic claudication; I44.0 Atrioventricular block, first degree; I25.2 Old myocardial infarction; G47.33 Obstructive sleep apnea (adult) (pediatric); S21.109D Unspecified open wound of unspecified front wall of thorax without penetration into thoracic cavity, subsequent encounter; R77.8 Other specified abnormalities of plasma proteins; I49.3 Ventricular premature depolarization; Z91.19 Patient's noncompliance with other medical treatment and regimen; Z95.3 Presence of xenogenic heart valve; Z79.899 Other long term (current) drug therapy; Z79.01 Long term (current) use of 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s; Z86.718 Personal history of other venous thrombosis and embolism; X58.XXXD Exposure to other specified factors, subsequent encounter
CPT/HCPCS: 36415; 71045; 80048; 82962; 83735; 83880; 84484; 85025; 85610; 87426; 93005; 93306; 94640; 97110; 97162; 97166; 97530; 97535; 99284; 99406; Q9957; A4216; C8929; J1940

== ENCOUNTER 2021-09-28 11:48 | Outpatient (CLI) | payer MEDICARE, SELFPAY ==
[2021-09-28 13:02] LABS: Anion Gap 4 (5-15); BUN 9 mg/dL (7-18); BUN/Creat Ratio 10.5 RATIO (10-20); Calcium,Total 8.3 mg/dL (8.5-10.1); Chloride 108 mmol/L (98-107); Creatinine, Serum 0.86 mg/dL (0.70-1.30); EST Glomerular Filtration Rate 94 mL/min (>60); Est Glom Filt Rate - Afr Amer 113 mL/min (>60); Glucose 277 mg/dL (74-106); Potassium 3.8 mmol/L (3.5-5.1); Sodium Level 141 mmol/L (136-145)
== END 2021-09-28 23:59 | disposition home or self-care (01) ==
LOC: POLAB3 11:48
PROVIDERS: PCP Family Medicine Geriatric Medicine; Visit Provider Family Medicine Geriatric Medicine
DX: I50.22 Chronic systolic (congestive) heart failure (principal)
CPT/HCPCS: 36415; 80048

== ENCOUNTER 2021-10-06 11:14 | Outpatient (CLI) | payer MEDICARE, SELFPAY ==
[2021-10-06 12:27] LABS: Anion Gap 3 (5-15); BUN 10 mg/dL (7-18); BUN/Creat Ratio 11.7 RATIO (10-20); Calcium,Total 8.7 mg/dL (8.5-10.1); Chloride 112 mmol/L (98-107); Creatinine, Serum 0.86 mg/dL (0.70-1.30); EST Glomerular Filtration Rate 94 mL/min (>60); Est Glom Filt Rate - Afr Amer 114 mL/min (>60); Glucose 142 mg/dL (74-106); Sodium Level 143 mmol/L (136-145)
== END 2021-10-06 23:59 | disposition home or self-care (01) ==
LOC: POLAB3 11:15
PROVIDERS: PCP Family Medicine Geriatric Medicine; Visit Provider Family Medicine Geriatric Medicine
DX: I50.22 Chronic systolic (congestive) heart failure (principal)
CPT/HCPCS: 36415; 80048

== ENCOUNTER 2021-10-18 05:40 | Inpatient (IN) | payer MEDICARE, MEDICAID, SELFPAY ==
[2021-10-18] VITALS (10 sets, daily range): BP systolic 133–177; BP diastolic 80–110; PULSE 102–117; RESP 16–31; TEMP 36.7–37.4; O2SAT 97–100; BMI 31.8; BMI 29.4
--- NOTE | 2021-10-18 06:06 | EX.ED.DYSGE1 ---
HPI History of Present Illness Chief Complaint: Alt LOC Onset/Context/Timing Onset: Today Context: Sudden Onset (Woke up with confusion today) Timing: Continuous Quality: Confused Location: Generalized Worsened by: Nothing Relieved by: Nothing Narrative Narrative: Patient presents with increased confusion that was noticed when he woke up today. Patient's last known well was 8 PM last night. EMS reported patient was having difficulty speaking today. They also reported he was having difficulty answering their questions. told EMS that he always mumbles and is difficult to understand. However, today he is weaker than usual. [facility] Medical History Atherosclerosis of coronary artery without angina pectoris Bleeding disorder Chronic combined systolic and diastolic CHF (congestive heart failure) Congestive heart failure COPD (chronic obstructive pulmonary disease) Diabetic foot infection DVT (deep venous thrombosis) Elevated troponin Gangrene of toe GERD (gastroesophageal reflux disease) History of non-ST elevation myocardial infarction (NSTEMI) (04/23/20) Hyperlipidemia Ischemic cardiomyopathy Kidney stones Lumbar spinal stenosis MSSA (methicillin susceptible Staphylococcus aureus) infection Nicotine dependence Non-healing surgical wound (05/01/20) Nonrheumatic aortic (valve) stenosis 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 Obstructive sleep apnea Osteomyelitis Peripheral vascular occlusive disease Pleural effusion, right Scabies infestation Secondary pulmonary arterial hypertension Smoker Sternal wound infection 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 foot with fat layer exposed Ulcer of right foot with necrosis of bone Home Medications metformin 500 mg tablet 500 mg PO BIDCM 05/31/20 [History Last Taken 09/21/21] atorvastatin 40 mg PO QHS 11/12/20 [History Last Taken 09/20/21] insulin aspart U-100 [Novolog Flexpen U-100 Insulin] 20 unit SUBCUT BIDCM 12/23/20 [History Last Taken Unknown] potassium chloride 20 meq PO DAILY 12/23/20 [History Last Taken 12/22/20] aspirin 81 mg tablet,delayed release 81 mg PO DAILY tab 10/08/21 [History Last Taken Unknown] furosemide 40 mg tablet 40 mg PO DAILY tab 10/08/21 [History Last Taken Unknown] gabapentin 100 mg capsule 200 mg PO BID cap 10/08/21 [History Last Taken Unknown] insulin glargine 100 unit/mL (3 mL) subcutaneous pen 35 unit SUBCUT DAILY ml 10/08/21 [History Last Taken Unknown] linagliptin 5 mg tablet 5 mg PO DAILY 10/08/21 [History Last Taken Unknown] lisinopril 5 mg tablet 5 mg PO DAILY 10/08/21 [History Last Taken Unknown] metoprolol succinate 25 mg tablet,extended release 24 hr 75 mg PO DAILY tab 10/08/21 [History Last Taken Unknown] Allergy/AdvReac Type Severity Reaction Status Date / Time No Known Allergies Allergy Verified 09/21/21 13:36 Family History Mother Diabetes Heart disease Father Diabetes Surgical History H/O coronary artery bypass surgery (05/01/20) History of angioplasty of peripheral vessel (01/02/10) History of femoropopliteal bypass (2008) History of incision and drainage (09/22/20) History of left heart catheterization (04/23/20) History of lumbar laminectomy History of mechanical aortic valve replacement Social History Smoking Status: Light Smoker (<10/day) alcohol intake: never substance use type: does not use caffeine: No ROS ROS ED Constitutional Constitutional ED: Denies chills or fever(s) Eyes Eyes: Denies blurry vision or diplopia ENT ENT ED: Reports sore throat; Denies rhinorrhea Cardiovascular Cardiovascular: Denies chest pain or palpitations Respiratory/Chest Respiratory/Chest: Reports dyspnea; Denies cough Gastrointestinal Gastrointestinal: Denies nausea or vomiting Genitourinary Genitourinary ED: Denies dysuria or hematuria Musculoskeletal Musculoskeletal: Denies back pain or neck pain Integumentary Reports Abrasions and rash Neurologic Neurologic: Reports weakness; Denies headache(s) Allergic/Immunologic Allergic/Immunologic ED: Denies mouth swelling or urticaria EXAM Physical Exam Const Vital Signs: 10/18/21 05:41 10/18/21 06:16 10/18/21 06:36 Temperature 98.0 F Temperature Source Temporal Pulse Rate 111 H Respiratory Rate 18 Blood Pressure 177/80 H Blood Pressure Mean 112 Pulse Ox 100 100 98 Oxygen Delivery Method Room Air Non-Rebreather Nasal Cannula Oxygen Flow Rate (L/min) 15 3 10/18/21 06:37 Temperature Temperature Source Pulse Rate 109 H Respiratory Rate 29 H Blood Pressure 156/99 H Blood Pressure Mean 118 Pulse Ox 98 Oxygen Delivery Method Nasal Cannula Oxygen Flow Rate (L/min) 3 Positive well nourished, well developed and unkempt General Appearance ED: unkempt and well developed HEENT Reports moist mucous membranes Neck supple and no JVD Resp normal respiratory effort Auscultation: diminished lung sounds diffuse Cardio regular rhythm Rate: tachycardic GI non-tender Palpation: soft Extremity Extremity Narrative: There is tenderness over the anterior aspect of the lower legs bilaterally. There is some erythema over the anterior knees bilaterally. There are ulcerations noted over the anterior lower legs. Pedal pulses are equal bilaterally. There is good range of motion. Neuro CN's II-XII intact bilaterally and no sensory deficits noted Neuro Narrative: Patient is awake, alert, and oriented to person, place, year, and month. Patient is unsure of the date. Sensorium / Orientation: alert Psych Appearance: unkempt MDM MDM MDM Narrative Medical decision making narrative: CBC shows normal white blood cell count. There is mild anemia with a hemoglobin of 12.1 hematocrit 39.9. PT was 26.8 INR is 2.6 PTT is 38.6. Comprehensive metabolic profile showed an elevated glucose of 296. Total bilirubin was 1.4. High-sensitivity troponin was 77. Urinalysis does not show any evidence of urinary tract infection. CT scan of the brain was obtained. There is no acute intracranial abnormality. This was interpreted by the radiologist and reviewed by myself. Portable chest x-ray was obtained. There is 1 view. On my interpretation, there is a developing pneumonia in the left midlung. Bony thorax is normal. There is no cardiomegaly. Blood cultures were ordered. Arterial blood gas shows a pH of 7.43, PCO2 of 32.5, PO2 of 89, bicarb of 21.3, and oxygen saturation of 97% on 4 L nasal cannula. Lactate was normal. BNP was obtained. Patient was started on Rocephin and Zithromax. Case was discussed with the hospitalist. He will admit the patient to his service. Lab Data Attestation: I reviewed the patient's lab results. Labs: Laboratory Results - last 24 hr 04/03/22 04/03/22 04/03/22 05:30 05:30 05:30 WBC 8.6 RBC 4.54 L Hgb 12.1 L Hct 39.9 L MCV 87.9 MCH 26.7 L MCHC 30.3 L RDW Std Deviation 51.5 H RDW Coeff of Estrada 16.1 H Plt Count 215 MPV 11.0 Immature Gran % (Auto) 0.400 Neut % (Auto) 80.6 H Lymph % (Auto) 11.3 L [place] % (Auto) 6.8 Eos % (Auto) 0.4 Baso % (Auto) 0.5 Absolute Neuts (auto) 6.9 Absolute Lymphs (auto) 0.97 Nucleated RBC % 0 PT 26.8 H INR 2.6 APTT 38.6 H Sodium 140 Potassium 3.6 Chloride 111 H Carbon Dioxide 24.0 Anion Gap 5 BUN 11 Creatinine 0.90 Estim Creat Clear Calc 83.67 Est GFR (MDRD) Af Amer 108 Est GFR (MDRD) Non-Af 90 BUN/Creatinine Ratio 12.3 Glucose 296 H Lactic Acid Calcium 8.3 L Total Bilirubin 1.40 H AST 19 ALT 26 Alkaline Phosphatase 138 H Troponin I High Sens 77 Total Protein 6.6 Albumin 3.4 Globulin 3.2 Albumin/Globulin Ratio 1.1 Urine Color Urine Clarity Urine pH Ur Specific Helix Urine Protein Urine Glucose (UA) Urine Ketones Urine Occult Blood Urine Nitrite Urine Bilirubin Urine Urobilinogen Ur Leukocyte Esterase Urine RBC Urine WBC Ur Squamous Epith Cells Urine Bacteria Urine Mucus 10/18/21 10/18/21 06:25 06:35 WBC RBC Hgb Hct MCV MCH MCHC RDW Std Deviation RDW Coeff of Estrada Plt Count MPV Immature Gran % (Auto) Neut % (Auto) Lymph % (Auto) [place] % (Auto) Eos % (Auto) Baso % (Auto) Absolute Neuts (auto) Absolute Lymphs (auto) Nucleated RBC % PT INR APTT Sodium Potassium Chloride Carbon Dioxide Anion Gap BUN Creatinine Estim Creat Clear Calc Est GFR (MDRD) Af Amer Est GFR (MDRD) Non-Af BUN/Creatinine Ratio Glucose Lactic Acid 1.5 Calcium Total Bilirubin AST ALT Alkaline Phosphatase Troponin I High Sens Total Protein Albumin Globulin Albumin/Globulin Ratio Urine Color Yellow Urine Clarity Clear Urine pH 5.0 Ur Specific Helix 1.020 Urine Protein 100 H Urine Glucose (UA) 1000 H Urine Ketones 5 H Urine Occult Blood 50 H Urine Nitrite Negative Urine Bilirubin Negative Urine Urobilinogen 1 H Ur Leukocyte Esterase Negative Urine RBC 0 SEEN Urine WBC 0 SEEN Ur Squamous Epith Cells 0 SEEN Urine Bacteria 0 SEEN Urine Mucus 0 SEEN ABG Data ABG results: ABG 10/18/21 06:55 Specimen Type ART Sample Site L Radial pH 7.43 Bicarbonate Actual 21.3 L Total CO2 22 Base Excess -3 L O2 Saturation 97 ABG pCO2 32.5 L ABG pO2 89 Caesar Test Positive O2 Delivery Device Cannula Liter Flow 4.0 Radiography Chest X-Ray - ED: 1 View, Read by ED Physician, Read by Radiologist and Left Infiltrate Diagnostic Testing: Clinical Impression(s) from Imaging Studies Brain CT 10/18/21 06:16 IMPRESSION: No significant interval change. No acute intracranial abnormality. Electronically Signed: Alex Royal MD at 7:20 EDT , Chest X-Ray 10/18/21 07:00 IMPRESSION: Findings suspicious for minimal developing pneumonia within the left midlung. Electronically Signed: Alex Royal MD at 7:16 EDT , EKG Initial EKG: Interpretation: Sinus Rhythm (109), No Acute Injury Pattern and Non-Specific ST Changes Prior EKG tracings: available for review Prior: Unchanged (09/21/2021) Discharge Plan Triage Chief Complaint: Alt LOC ED Provider: Kendrick Mulligan Dx/Rx/DC Orders Clinical Impression: Pneumonia, Hypoxia, Confusion Prescriptions: No Action metformin 500 mg tablet 500 mg PO BIDCM RF: 0 gabapentin 100 mg capsule 200 mg PO BID RF: 0 furosemide [Lasix] 40 mg tablet 40 mg PO DAILY RF: 0 metoprolol succinate 25 mg tablet extended release 24 hr 75 mg PO DAILY RF: 0 aspirin 81 mg tablet,delayed release (DR/EC) 81 mg PO DAILY RF: 0 Tradjenta 5 mg tablet 5 mg PO DAILY RF: 0 lisinopril 5 mg tablet 5 mg PO DAILY RF: 0 atorvastatin 40 mg Tablet 40 mg PO QHS RF: 0 Lantus Solostar U-100 Insulin 100 unit/mL (3 mL) insulin pen 35 unit SUBCUT DAILY RF: 0 potassium chloride 20 mEq Tablet,Er Particles/Crystals 20 meq PO DAILY RF: 0 insulin aspart U-100 [Novolog Flexpen U-100 Insulin] 100 unit/mL (3 mL) insulin pen 20 unit SUBCUT BIDCM RF: 0 Primary Care Provider: Saurabh Hernandez Chi Referrals: Saurabh Hernandez Chi, MD [Primary Care Provider] - Disposition Disposition: Acute Care Hospital [facility]
--- NOTE | 2021-10-18 06:16 | EKG12_ITS ---
Test Reason : FALL Blood Pressure : / mmHG Vent. Rate : 109 BPM Atrial Rate : 109 BPM P-R Int : 176 ms QRS Dur : 078 ms QT Int : 352 ms P-R-T Axes : 213 166 076 degrees QTc Int : 474 ms Consider limb lead misplacement interpretation: below based upon ECG as presented, consider repeat ECG Unusual P axis, possible ectopic atrial tachycardia Inferior infarct (cited on or before 21-SEP-2020) Anterolateral infarct (cited on or before 12-NOV-2020) Abnormal ECG Confirmed by YEFRI CHAPA, YVETTE ([id number]), assistant editor RICK GARCIA ([id number]) on 10/21/2021 10:44:16 AM Referred By: BETZAIDA Confirmed By:YVETTE ASIF MD
--- NOTE | 2021-10-18 06:16 | CT_ITS ---
STUDY: CT BRAIN WITHOUT CONTRAST REASON FOR EXAM: Male, 70 years old. Weakness RADIATION DOSAGE (If Supplied By Facility): CTDIvol = ( 44.99 ) mGy, DLP = ( 812.98 ) mGycm TECHNIQUE: Transaxial CT imaging of the brain was performed without administration of intravenous contrast material. Individualized dose optimization techniques were used for this CT. COMPARISON: Previous cranial CT of 03/11/2020. FINDINGS: Normal soft tissue structures. Normal calvarium. Mild atrophy. Moderate patchy chronic small vessel ischemic changes are present within the deep white matter tracts. Mild prominence of the cortical sulci and ventricles due to the atrophy. No midline shift. Normal basal ganglia and thalami. Normal brainstem. Normal cerebellum. There is no intracranial hemorrhage. There are no findings of an acute ischemic infarction. No intracranial mass. Incidental maxillary retention cysts. Minimal chronic mucosal thickening noted within the maxillary antra on the coronal images, unchanged. Visualized mastoid air cells are clear. Findings of periodontal disease are present. CT/Brain/Head without Contrast IMPRESSION: No significant interval change. No acute intracranial abnormality. Electronically Signed: Alex Royal MD at 7:20 EDT ,
[2021-10-18 06:44] LABS: Bacteria 0 SEEN /hpf (None Seen); Mucous, Urine 0 SEEN /hpf (<or=2+); Red Blood Cells-Urine 0 SEEN /hpf (0-5); Squamous Epithelial Cells - UA 0 SEEN /hpf (0-5); White Blood Cells 0 SEEN /hpf (0-5)
[2021-10-18 06:57] LABS: Absolute Lymphocyte Count 0.97 X10^3/uL (0.83-4.51); Absolute Neutrophil Count 6.9 X10^3/uL (2.0-7.7); Basophil# 0.04 X10^3/uL; Basophil% 0.5 % (0-1); Eosinophil# 0.03 X10^3/uL; Eosinophils% 0.4 % (0-5); Hematocrit 39.9 % (40-54); Hemoglobin 12.1 g/dL (13.0-16.5); Lymphocyte # 0.97 X10^3/ul (0.83-4.51); Lymphocyte % 11.3 % (19-41); Mean Corp Hgb Conc 30.3 g/dL (32-36); Mean Corpuscular Hgb 26.7 pg (27.0-32.0); Mean Corpuscular Volume 87.9 fL (80-94); Monocyte# 0.58 X10^3/uL; Monocyte% 6.8 % (0-10); NRBC Flagged by Analyzer 0 % (0-5); Neutrophil # 6.91 X10^3/uL (2.7-7.7); Neutrophil % 80.6 % (47-70); Platelet Count 215 K/mm3 (150-450); RBC Distribution Width CV 16.1 % (11.6-14.6); RBC Distribution Width SD 51.5 fl (35.1-43.9); Red Blood Count 4.54 M/mm3 (4.6-6.2); White Blood Count 8.6 K/mm3 (4.4-11.0)
[2021-10-18 06:58] LABS: Color, Urine Yellow (Yellow); Glucose, Dipstick 1000 mg/dl (Normal); Ketone-Dipstick 5 mg/dl (Negative); Leukocyte Esterase-Dipstick Negative /ul (Negative); Nitrite-Dipstick Negative (Negative); Occult Blood-Urine 50 /ul (Negative); Protein-Dipstick 100 mg/dl (Negative); Urine Bilirubin Dipstick Negative (Negative); Urine Clarity Clear (Clear); Urine Urobilinogen 1 mg/dl (Normal)
--- NOTE | 2021-10-18 07:00 | RAD_ITS ---
STUDY: X-RAY CHEST REASON FOR EXAM: Male, 70 years old. Cough TECHNIQUE: 2 AP portable views of the chest. COMPARISON: Chest radiographs of 09/21/2021 and 09/02/2021.. FINDINGS: Subtle patchy density is noted within the left midlung, in part due to chronic interstitial prominence accentuated by the overlying scapula, but minimal developing infiltrate is suspected in this region, in view of the interval change. Lungs are otherwise clear. There is stable sclerosis at the left first costochondral junction. There is chronic elevation of the right hemidiaphragm. Infiltrate previously seen at the right lung base has resolved. Heart size is borderline enlarged with normal pulmonary vasculature for technique. Thoracic aorta remains mildly elongated. Stable mild thoracic dextroscoliosis with extensive thoracic degenerative spurring. No pleural effusion or pneumothorax identified. There is no demonstrated abnormality of the visualized soft tissue structures of the upper abdomen. RAD/Chest 1 View (Portable) IMPRESSION: Findings suspicious for minimal developing pneumonia within the left midlung. Electronically Signed: Alex Royal MD at 7:16 EDT ,
[2021-10-18 07:01] LABS: Allen Test Positive; Base Excess -3 mmol/L (-2 to +2); Bicarbonate 21.3 mmol/L (22-26); Blood Gas Specimen Type ART; O2 Delivery Device Cannula; PO2 89 mmHG (75-100); SITE L Radial; SO2 97 % (95-99); Total Carbon Dioxide 22 mmol/L; pCO2 32.5 mmHg (35-45); pH 7.43 (7.35-7.45)
[2021-10-18 07:03] LABS: International Normalized Ratio 2.6; Partial Thromboplast Time 38.6 Seconds (24.1-36.2); Prothrombin Time (Protime)PT. 26.8 SECONDS (11.7-14.9)
[2021-10-18 07:04] LABS: ALB/GLOB Ratio 1.1 RATIO (0.9-2.4); AST(SGOT) 19 U/L (15-37); Alanine Aminotransfer ALT/SGPT 26 U/L (16-61); Albumin, Serum 3.4 g/dL (3.2-5.0); Alkaline Phosphatase 138 U/L (45-117); Anion Gap 5 (5-15); BUN 11 mg/dL (7-18); BUN/Creat Ratio 12.3 RATIO (10-20); Calcium,Total 8.3 mg/dL (8.5-10.1); Chloride 111 mmol/L (98-107); EST Glomerular Filtration Rate 90 mL/min (>60); Est Glom Filt Rate - Afr Amer 108 mL/min (>60); Estimated Creatinine Clearance 83.67 ml/min; Globulin 3.2 g/dL (2.2-4.2); Glucose 296 mg/dL (74-106); Potassium 3.6 mmol/L (3.5-5.1); Protein, Total 6.6 g/dL (6.4-8.2); Sodium Level 140 mmol/L (136-145); Troponin-I HS 77 pg/mL (3.0-78.0)
[2021-10-18 07:29] LABS: Lactic Acid 1.5 mmol/L (0.4-1.9)
[2021-10-18 08:36] LABS: BNP,B-Type NATRIURETIC PEPTIDE 1047.9 pg/mL (0-100)
[2021-10-18] MEDS: Furosemide 40 MG Tablet PO (10:48)
[2021-10-18] MEDS: Enoxaparin 40 MG/0.4 ML Syringe SC (10:49)
[2021-10-18 11:21] LABS: Bedside Glucose 261 mg/dL (74-106)
[2021-10-18] MEDS: Insulin Lispro 100 UNIT/ML INSULN.PEN SC ×3 (11:58→21:08)
--- NOTE | 2021-10-18 15:07 | HP.PCM.HOS_ITS ---
Documented by User: Hima BROWN 10/18/21 15:38 HPI - General General Date of Admission: 10/18/21 HPI Narrative RAPHAEL HADDAD is a 70-year-old male who presented to the ED at [facility] on 10/18/2021 with a chief complaint of altered mental status. Patient unable to provide much insight into his current condition as he is acutely confused, so history obtained from ED physicians note. According to recollection of family patient awoke this morning with continued confusion as patient was observed having speech difficulties and difficulty answering easy questions. Patient's reports that patient mumbles and is always difficult to understand, however his speech seems more abnormal today. Patient's last known well when he went to bed last night. Vital signs show a temp of 99.3 ?F, HR of 108, BP of 133/89, RR of 20 and patient is currently satting 97% on 3 L. CBC shows WBCs at 8.6, hemoglobin of 12.1 and platelets at 215. Patient's BNP is elevated at 1047. Brain CT demonstrates no acute intracranial abnormality. Chest x-ray with findings suspicious for pneumonia in the left midlung. Heart is mildly enlarged with normal pulmonary vascular congestion. COUNTS INCLUDE 234 BEDS AT THE [facility] Medical History Atherosclerosis of coronary artery without angina pectoris Bleeding disorder Chronic combined systolic and diastolic CHF (congestive heart failure) Congestive heart failure COPD (chronic obstructive pulmonary disease) Diabetic foot infection DVT (deep venous thrombosis) Elevated troponin Gangrene of toe GERD (gastroesophageal reflux disease) History of non-ST elevation myocardial infarction (NSTEMI) (04/23/20) Hyperlipidemia Ischemic cardiomyopathy Kidney stones Lumbar spinal stenosis MSSA (methicillin susceptible Staphylococcus aureus) infection Nicotine dependence Non-healing surgical wound (05/01/20) Nonrheumatic aortic (valve) stenosis 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 Obstructive sleep apnea Osteomyelitis Peripheral vascular occlusive disease Pleural effusion, right Scabies infestation Secondary pulmonary arterial hypertension Smoker Sternal wound infection 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 foot with fat layer exposed Ulcer of right foot with necrosis of bone Home Medications metformin 500 mg tablet 500 mg PO BIDCM 05/31/20 [History Last Taken 09/21/21] atorvastatin 40 mg PO QHS 11/12/20 [History Last Taken 09/20/21] insulin aspart U-100 [Novolog Flexpen U-100 Insulin] 20 unit SUBCUT BIDCM 12/23/20 [History Last Taken Unknown] potassium chloride 20 meq PO DAILY 12/23/20 [History Last Taken 12/22/20] aspirin 81 mg tablet,delayed release 81 mg PO DAILY tab 10/08/21 [History Last Taken Unknown] furosemide 40 mg tablet 40 mg PO DAILY tab 10/08/21 [History Last Taken Unknown] gabapentin 100 mg capsule 200 mg PO BID cap 10/08/21 [History Last Taken Unknown] insulin glargine 100 unit/mL (3 mL) subcutaneous pen 35 unit SUBCUT DAILY ml 10/08/21 [History Last Taken Unknown] linagliptin 5 mg tablet 5 mg PO DAILY 10/08/21 [History Last Taken Unknown] lisinopril 5 mg tablet 5 mg PO DAILY 10/08/21 [History Last Taken Unknown] metoprolol succinate 25 mg tablet,extended release 24 hr 75 mg PO DAILY tab 10/08/21 [History Last Taken Unknown] Allergy/AdvReac Type Severity Reaction Status Date / Time No Known Allergies Allergy Verified 09/21/21 13:36 Family History Mother Diabetes Heart disease Father Diabetes Surgical History H/O coronary artery bypass surgery (05/01/20) History of angioplasty of peripheral vessel (01/02/10) History of femoropopliteal bypass (2008) History of incision and drainage (09/22/20) History of left heart catheterization (04/23/20) History of lumbar laminectomy History of mechanical aortic valve replacement Social History Smoking Status: Light Smoker (<10/day) alcohol intake: never substance use type: does not use caffeine: No ROS Constitutional Constitutional: Reports malaise and weakness; Denies anorexia, change in weight, chills, fatigue, fever(s), night sweats or other Eyes Eyes: Denies blurry vision, change in eye color, change in vision, discharge from eye(s), double vision, erythema, eye pain, loss of vision or other ENT HEENT: Denies abnormal hearing, dysphagia, ear pain, epistaxis, headache(s), hearing loss, nasal congestion, nasal discharge, post nasal drip, sinus pressure, sore throat or other Cardiovascular Cardiovascular: Reports dyspnea on exertion and edema; Denies chest pain, claudication, lightheadedness, orthopnea, palpitations, paroxysmal nocturnal dyspnea, rapid heart rate, syncope or other Respiratory/Chest Respiratory/Chest: Reports cough, dyspnea, excessive phlegm production, shortness of breath at rest and shortness of breath with exertion; Denies hemoptysis, productive cough, wheezing or other Gastrointestinal Gastrointestinal: Reports abdominal pain; Denies coffee ground emesis, constipation, diarrhea, dyspepsia, hematemesis, hematochezia, loose stools, melena, nausea, vomiting or other Genitourinary Genitourinary: Denies burning urination, difficulty urinating, dysuria, hematuria, nocturia, urinary frequency, urinary hesitancy, urinary incontinence, urinary urgency or other Musculoskeletal Musculoskeletal: Denies arthralgias, back pain, joint pain, joint stiffness, joint swelling, myalgias, neck pain or other Neurologic Neurologic: Denies abnormal gait, abnormal speech, confusion, disequilibrium, dizziness, focal weakness, headache(s), numbness, paresthesias, seizure-like activity, seizures, syncope, tingling, tremor(s) or other Psychiatric Psychiatric: Denies anxiety, depression, homicidal ideation, suicidal ideation or other Endocrine Endocrinology: Denies change in body appearance, cold intolerance, excessive sweating, heat intolerance, polydipsia, polyuria or other Hematologic/Lymphatic Hematologic/Lymphatic: Denies anemia, easy bleeding, easy bruising, lymphadenopathy or other Allergic/Immunologic Allergic/Immunologic: Denies rhinitis, hives, eczemia, asthma or other Vital Signs Vital Signs Vital Signs: 10/18/21 05:41 10/18/21 06:16 10/18/21 06:36 Temperature 98.0 F Temperature Source Temporal Pulse Rate 111 H Respiratory Rate 18 Respiratory Effort Respiratory Depth Respiratory Pattern Blood Pressure 177/80 H Blood Pressure Mean 112 Blood Pressure Source Blood Pressure Position Blood Pressure Location Pulse Ox 100 100 98 Oxygen Delivery Method Room Air Non-Rebreather Nasal Cannula Oxygen Flow Rate (L/min) 15 3 10/18/21 06:37 10/18/21 08:43 10/18/21 10:09 Temperature 98.2 F 98.1 F Temperature Source Temporal Temporal Pulse Rate 109 H 102 H 117 H Respiratory Rate 29 H 31 H 16 Respiratory Effort Respiratory Depth Respiratory Pattern Blood Pressure 156/99 H 169/99 H 169/110 H Blood Pressure Mean 118 122 129 Blood Pressure Source Monitor Blood Pressure Position Semi-Fowlers Blood Pressure Location Right Arm Pulse Ox 98 97 100 Oxygen Delivery Method Nasal Cannula Nasal Cannula Nasal Cannula Oxygen Flow Rate (L/min) 3 2 1.5 10/18/21 10:50 10/18/21 10:52 10/18/21 15:03 Temperature 99.3 F H Temperature Source Oral Pulse Rate 108 H Respiratory Rate 20 H Respiratory Effort Short of Breath Labored Respiratory Depth Shallow Respiratory Pattern Irregular Blood Pressure 133/89 H Blood Pressure Mean 103 Blood Pressure Source Monitor Blood Pressure Position Semi-Fowlers Blood Pressure Location Right Arm Pulse Ox 100 97 Oxygen Delivery Method Nasal Cannula Nasal Cannula Room Air Oxygen Flow Rate (L/min) 4 3 Weight Weight: 211 lb 2 oz Body Mass Index (BMI) 29.4 Physical Exam Const alert and oriented x3 General Appearance: cooperative HEENT normocephalic, head/scalp atraumatic and hearing grossly normal bilaterally Eyes PERRL, EOMs intact bilaterally and conjunctivae normal Neck no lymphadenopathy, supple and no JVD Resp Effort and Inspection: tachypneic, respiratory distress and labored Auscultation: rhonchi and wheezes Cardio regular rate, regular rhythm and no JVD GI normal to inspection, nondistended, normoactive bowel sounds Extremity Extremity Narrative: Patient with healingwounds about the anterior aspect of the right lower extremity with dried blood and petechiae. Skin Skin Narrative: See extremity. Neuro CN's II-XII intact bilaterally Psych affect normal Results Lab / Micro Data Result Diagrams: 10/18/21 05:30 10/18/21 05:30 Labs: Laboratory Results - last 24 hr 10/18/21 05:30: WBC 8.6, RBC 4.54 L, Hgb 12.1 L, Hct 39.9 L, MCV 87.9, MCH 26.7 L, MCHC 30.3 L, RDW Std Deviation 51.5 H, RDW Coeff of Estrada 16.1 H, Plt Count 215, MPV 11.0, Immature Gran % (Auto) 0.400, Neut % (Auto) 80.6 H, Lymph % (Auto) 11.3 L, [place] % (Auto) 6.8, Eos % (Auto) 0.4, Baso % (Auto) 0.5, Absolute Neuts (auto) 6.9, Absolute Lymphs (auto) 0.97, Nucleated RBC % 0 10/18/21 05:30: PT 26.8 H, INR 2.6, APTT 38.6 H 10/18/21 05:30: Sodium 140, Potassium 3.6, Chloride 111 H, Carbon Dioxide 24.0, Anion Gap 5, BUN 11, Creatinine 0.90, Estim Creat Clear Calc 83.67, Est GFR (MDRD) Af Amer 108, Est GFR (MDRD) Non-Af 90, BUN/Creatinine Ratio 12.3, Glucose 296 H, Calcium 8.3 L, Total Bilirubin 1.40 H, AST 19, ALT 26, Alkaline Phosphatase 138 H, Troponin I High Sens 77, Total Protein 6.6, Albumin 3.4, Globulin 3.2, Albumin/Globulin Ratio 1.1 10/18/21 06:25: Lactic Acid 1.5 10/18/21 06:25: B-Natriuretic Peptide 1047.9 H 10/18/21 06:35: Urine Color Yellow, Urine Clarity Clear, Urine pH 5.0, Ur Specific [place] 1.020, Urine Protein 100 H, Urine Glucose (UA) 1000 H, Urine Ketones 5 H, Urine Occult Blood 50 H, Urine Nitrite Negative, Urine Bilirubin Negative, Urine Urobilinogen 1 H, Ur Leukocyte Esterase Negative, Urine RBC 0 SEEN, Urine WBC 0 SEEN, Ur Squamous Epith Cells 0 SEEN, Urine Bacteria 0 SEEN, Urine Mucus 0 SEEN 10/18/21 11:15: POC Glucose 261 H Micro: Microbiology 10/18/21 06:24 Nasal Secretion SARS-CoV-2 & FLU Antigen (Rapid) - Final ABG Data ABG results: ABG 10/18/21 06:55 Specimen Type ART Sample Site L Radial pH 7.43 Bicarbonate Actual 21.3 L Total CO2 22 Base Excess -3 L O2 Saturation 97 ABG pCO2 32.5 L ABG pO2 89 Caesar Test Positive O2 Delivery Device Cannula Liter Flow 4.[address] 10/18/21 06:16 IMPRESSION: No significant interval change. No acute intracranial abnormality. Electronically Signed: Alex Royal MD at 7:20 EDT , Chest X-Ray 10/18/21 07:00 IMPRESSION: Findings suspicious for minimal developing pneumonia within the left midlung. Electronically Signed: Alex Royal MD at 7:16 EDT , Assessment & Plan Assessment/Plan (1) Pneumonia: (2) Hypoxia: (3) Confusion: PLAN: Patient is a 70-year-old male who presents to the ED at [facility] on 10/18/2021 with a chief complaint of altered mental status. Patient will be admitted for evaluation and management of acute metabolic ence phalopathy secondary to community-acquired pneumonia. 1) community-acquired pneumonia Patient presents with a 12-hour history of altered mental status, patient reports not feeling well and was observed having elevated respirations with productive cough. Chest x-ray obtained and demonstrates findings of developing pneumonia in the mid left lung. Rapid flu and Covid negative. Plan; admit to [facility], initiate empiric Rocephin and azithromycin, blood cultures obtained/pending, CBC and CMP in a.m., supplemental O2 as needed, incentive spirometry ordered, PT/OT eval ordered, caseworker protective services consult ordered. 2) acute metabolic encephalopathy Secondary to #1, plan as above. 3) chronic combined systolic and diastolic heart failure Shortness of breath is more consistent with pneumonia then heart failure exacerbation, although BNP is elevated. Chest x-ray with borderline cardiomegaly and normal pulmonary vasculature. We will not obtain new echocardiogram as patient had echocardiogram in September 2021 which demonstrated normal LV size, an EF of 30%, moderate global hypokinesis of the left ventricle, stage III diastolic dysfunction and stable appearing bioprosthetic aortic valve. Continue home Lasix. 4) DM2 Accu-Cheks with sliding scale insulin ordered. DVT prophylaxis - Lovenox Patient seen by Hima Larson PA-C, under the supervision of Dr. Rosario. Time spent on patient care: 25 minutes. Documented by User: Dr. Fernandez Rosario MD 10/18/21 15:46 HPI - General General Date of Admission: 10/18/21 COUNTS INCLUDE 234 BEDS AT THE [facility] Medical History Atherosclerosis of coronary artery without angina pectoris Bleeding disorder Chronic combined systolic and diastolic CHF (congestive heart failure) Congestive heart failure COPD (chronic obstructive pulmonary disease) Diabetic foot infection DVT (deep venous thrombosis) Elevated troponin Gangrene of toe GERD (gastroesophageal reflux disease) History of non-ST elevation myocardial infarction (NSTEMI) (04/23/20) Hyperlipidemia Ischemic cardiomyopathy Kidney stones Lumbar spinal stenosis MSSA (methicillin susceptible Staphylococcus aureus) infection Nicotine dependence Non-healing surgical wound (05/01/20) Nonrheumatic aortic (valve) stenosis 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 Obstructive sleep apnea Osteomyelitis Peripheral vascular occlusive disease Pleural effusion, right Scabies infestation Secondary pulmonary arterial hypertension Smoker Sternal wound infection 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 foot with fat layer exposed Ulcer of right foot with necrosis of bone Home Medications metformin 500 mg tablet 500 mg PO BIDCM 05/31/20 [History Last Taken 09/21/21] atorvastatin 40 mg PO QHS 11/12/20 [History Last Taken 09/20/21] insulin aspart U-100 [Novolog Flexpen U-100 Insulin] 20 unit SUBCUT BIDCM 12/23/20 [History Last Taken Unknown] potassium chloride 20 meq PO DAILY 12/23/20 [History Last Taken 12/22/20] aspirin 81 mg tablet,delayed release 81 mg PO DAILY tab 10/08/21 [History Last Taken Unknown] furosemide 40 mg tablet 40 mg PO DAILY tab 10/08/21 [History Last Taken Unknown] gabapentin 100 mg capsule 200 mg PO BID cap 10/08/21 [History Last Taken Unknown] insulin glargine 100 unit/mL (3 mL) subcutaneous pen 35 unit SUBCUT DAILY ml 10/08/21 [History Last Taken Unknown] linagliptin 5 mg tablet 5 mg PO DAILY 10/08/21 [History Last Taken Unknown] lisinopril 5 mg tablet 5 mg PO DAILY 10/08/21 [History Last Taken Unknown] metoprolol succinate 25 mg tablet,extended release 24 hr 75 mg PO DAILY tab 10/08/21 [History Last Taken Unknown] Allergy/AdvReac Type Severity Reaction Status Date / Time No Known Allergies Allergy Verified 09/21/21 13:36 Family History Mother Diabetes Heart disease Father Diabetes Surgical History H/O coronary artery bypass surgery (05/01/20) History of angioplasty of peripheral vessel (01/02/10) History of femoropopliteal bypass (2008) History of incision and drainage (09/22/20) History of left heart catheterization (04/23/20) History of lumbar laminectomy History of mechanical aortic valve replacement Social History Smoking Status: Light Smoker (<10/day) alcohol intake: never substance use type: does not use caffeine: No Results Lab / Micro Data Result Diagrams: 10/18/21 05:30 10/18/21 05:30 Charges/Coding Addendum Addendum: Dr. Rosario: I personally reviewed the chart and examined the patient, and agree with the above findings. 70-year-old male presents to the hospital with altered mental status. He is found to have a left midlung pneumonia and his says that he does normally mumble so he was not considered to be a stroke alert in the ER. It does appear that he has a community-acquired pneumonia so we will try to obtain a sputum culture. He does also have lower extremity wounds we will consult wound care, they do not appear infected at this time. He was started on oxygen in the ER however in the ambulance the lowest his oxygen got was only 90%. Therefore we will continue to monitor. His BNP was slightly elevated from his baseline to a little over thousand so if necessary can initiate IV Lasix therapy if he does ultimately end up actually requiring oxygen. Clinical time spent in all aspects of patient care: 30 minutes Visit Charges OBSV E&M: 39273 Initial observation care L2
[2021-10-18 17:25] LABS: Bedside Glucose 162 mg/dL (74-106)
[2021-10-18] MEDS: Atorvastatin Calcium 40 MG Tablet PO (21:08)
[2021-10-18 21:21] LABS: Bedside Glucose 212 mg/dL (74-106)
[2021-10-19] VITALS (11 sets, daily range): BP systolic 112–171; BP diastolic 65–100; PULSE 85–106; RESP 18–20; TEMP 36.6–37.1; O2SAT 92–100
[2021-10-19 06:26] LABS: Absolute Lymphocyte Count 1.68 X10^3/uL (0.83-4.51); Absolute Neutrophil Count 4.8 X10^3/uL (2.0-7.7); Basophil# 0.04 X10^3/uL; Basophil% 0.6 % (0-1); Eosinophil# 0.09 X10^3/uL; Eosinophils% 1.2 % (0-5); Hematocrit 38.3 % (40-54); Hemoglobin 12.1 g/dL (13.0-16.5); Lymphocyte # 1.68 X10^3/ul (0.83-4.51); Lymphocyte % 23.3 % (19-41); Mean Corp Hgb Conc 31.6 g/dL (32-36); Mean Corpuscular Hgb 26.8 pg (27.0-32.0); Mean Corpuscular Volume 84.9 fL (80-94); Monocyte# 0.61 X10^3/uL; Monocyte% 8.4 % (0-10); NRBC Flagged by Analyzer 0 % (0-5); Neutrophil # 4.77 X10^3/uL (2.7-7.7); Neutrophil % 66.1 % (47-70); Platelet Count 178 K/mm3 (150-450); RBC Distribution Width CV 16.2 % (11.6-14.6); RBC Distribution Width SD 50.4 fl (35.1-43.9); Red Blood Count 4.51 M/mm3 (4.6-6.2); White Blood Count 7.2 K/mm3 (4.4-11.0)
[2021-10-19] MEDS: Insulin Lispro 100 UNIT/ML INSULN.PEN SC ×4 (06:26→20:19)
[2021-10-19 06:46] LABS: Bedside Glucose 191 mg/dL (74-106)
[2021-10-19 06:51] LABS: Anion Gap 7 (5-15); BUN 12 mg/dL (7-18); BUN/Creat Ratio 17.1 RATIO (10-20); Calcium,Total 8.1 mg/dL (8.5-10.1); Chloride 108 mmol/L (98-107); EST Glomerular Filtration Rate 119 mL/min (>60); Est Glom Filt Rate - Afr Amer 143 mL/min (>60); Glucose 175 mg/dL (74-106); Potassium 3.6 mmol/L (3.5-5.1); Sodium Level 140 mmol/L (136-145)
--- NOTE | 2021-10-19 08:17 | WOUNDNOTE ---
wound photo: right lower leg
--- NOTE | 2021-10-19 08:17 | WOUNDNOTE ---
wound photo: left lower leg
[2021-10-19] MEDS: Metoprolol(XL)Succ 25 MG Tablet 75 MG PO (08:46)
[2021-10-19] MEDS: Potassium Chloride Oral Tablet 20 MEQ PO (08:46)
[2021-10-19] MEDS: Enoxaparin 40 MG/0.4 ML Syringe SC (08:47)
[2021-10-19] MEDS: Aspirin E.C. 81 MG Tablet PO (08:47)
[2021-10-19] MEDS: Insulin Glargine-YFGN 100 UNIT/ML Pen 20 UNIT SC (08:51)
[2021-10-19] MEDS: LINAGLIPTIN 5 MG TABLET PO (10:22)
[2021-10-19] MEDS: 0.9% Saline Lock 10 ML Syringe IV ×2 (10:22→12:46)
[2021-10-19] MEDS: Ceftriaxone 1 GM/50 ML BAG IV (10:22)
[2021-10-19] MEDS: Furosemide 40 MG Tablet PO (10:22)
[2021-10-19] MEDS: Lisinopril 5 MG Tablet PO (10:22)
--- NOTE | 2021-10-19 14:18 | PN.HOSP_ITS ---
Documented by User: Hima BROWN 10/19/21 14:23 Subjective Subjective Patient is a 70-year-old male comfortably resting in a chair, alert and orient x3. Patient reports that shortness of breath and overall weakness are much improved from yesterday. Patient confusion also appears to have resolved from y esterday, although patient is still unclear as to the events that led him to being admitted. Does not appear in acute distress. Objective Data Objective Data Vital Signs: Vital Signs Temp Pulse Resp BP Pulse Ox 98.0 F 92 20 H 115/72 92 10/19/21 13:55 10/19/21 13:55 10/19/21 13:55 10/19/21 13:55 10/19/21 13:55 Oxygen Flow Rate (L/min) 1 Oxygen Delivery Method Nasal Cannula Weight: 211 lb 2 oz Body Mass Index (BMI) 29.4 Intake & Output: Intake and Output for Last 24 Hours 10/17/21 10/18/21 10/19/21 23:59 23:59 23:59 Intake Total 455 / 455 805 / 805 Output Total 750 / 750 250 / 250 Balance -295 / -295 555 / 555 Lab / Micro Data Result Diagrams: 10/19/21 05:15 10/19/21 05:15 Labs: Laboratory Results - last 24 hr 10/18/21 17:16: POC Glucose 162 H 10/18/21 21:02: POC Glucose 212 H 10/19/21 05:15: WBC 7.2, RBC 4.51 L, Hgb 12.1 L, Hct 38.3 L, MCV 84.9, MCH 26.8 L, MCHC 31.6 L, RDW Std Deviation 50.4 H, RDW Coeff of Estrada 16.2 H, Plt Count 178, MPV 11.0, Immature Gran % (Auto) 0.400, Neut % (Auto) 66.1, Lymph % (Auto) 23.3, [place] % (Auto) 8.4, Eos % (Auto) 1.2, Baso % (Auto) 0.6, Absolute Neuts (auto) 4.8, Absolute Lymphs (auto) 1.68, Nucleated RBC % 0 10/19/21 05:15: Sodium 140, Potassium 3.6, Chloride 108 H, Carbon Dioxide 25.0, Anion Gap 7, BUN 12, Creatinine 0.70, Estim Creat Clear Calc 75.30, Est GFR (MDRD) Af Amer 143, Est GFR (MDRD) Non-Af 119, BUN/Creatinine Ratio 17.1, Glucose 175 H, Calcium 8.1 L 10/19/21 06:25: POC Glucose 191 H Micro: Microbiology 10/18/21 06:24 Nasal Secretion SARS-CoV-2 & FLU Antigen (Rapid) - Final Physical Exam Const alert, oriented x3 and no apparent distress HEENT head/scalp atraumatic and moist oral mucous membranes Head and Scalp: normocephalic Eyes PERRL and conjunctivae normal Neck no lymphadenopathy, supple and no JVD Resp normal respiratory effort, no retractions and no use of accessory muscles Cardio regular rate, regular rhythm and no JVD GI normal to inspection, nondistended, normoactive bowel sounds Extremity normal to inspection Skin no rashes or lesions noted Neuro CN's II-XII intact bilaterally Psych affect normal Assessment & Plan Assessment/Plan (1) Pneumonia: (2) Hypoxia: (3) Confusion: PLAN: Day 1 Discharge planning: To be determined. 1) community-acquired pneumonia Patient's respiratory status improved from yesterday, currently satting 92% on room air. Vital signs are stable and patient is afebrile. Patient without white count. We will continue empiric Rocephin and azithromycin and await cultures. 2) acute metabolic encephalopathy Resolved. Secondary to #1, plan as above. 3) chronic combined systolic and diastolic heart failure Shortness of breath is more consistent with pneumonia then heart failure exacerbation, although BNP is elevated. Chest x-ray with borderline cardiomegaly and normal pulmonary vasculature. We will not obtain new echocardiogram as patient had echocardiogram in September 2021 which demonstrated normal LV size, an EF of 30%, moderate global hypokinesis of the left ventricle, stage III diastolic dysfunction and stable appearing bioprosthetic aortic valve. Continue home Lasix. 4) DM2 Accu-Cheks with sliding scale insulin ordered. DVT prophylaxis - Lovenox Patient seen by Hima Larson PA-C, under the supervision of Dr. Rosario. Time spent on patient care: 10 minutes. Documented by User: Dr. Fernandez Rosario MD 10/19/21 14:46 Objective Data Lab / Micro Data Result Diagrams: 10/19/21 05:15 10/19/21 05:15 Charges/Coding Addendum Addendum: Dr. Rosario: I personally reviewed the chart and examined the patient, and agree with the abo ve findings. 70-year-old male presents to the hospital with altered mental status. He is found to have a left midlung pneumonia and his says that he does normally mumble so he was not considered to be a stroke alert in the ER. It does appear that he has a community-acquired pneumonia so we will try to obtain a sputum culture. He does also have lower extremity wounds we will consult wound care, they do not appear infected at this time. He was started on oxygen in the ER however in the ambulance the lowest his oxygen got was only 90%. Therefore we will continue to monitor. His BNP was slightly elevated from his baseline to a little over thousand so if necessary can initiate IV Lasix therapy if he does ultimately end up actually requiring oxygen. Clinical time spent in all aspects of patient care: 30 minutes 10/19/2021: Doing much better today, he is off his oxygen and less confused. Given the improvement it was likely due to his pneumonia and not any type of heart failure. He was never hypoxic on admission. We will continue with PT/OT for evaluation and possible placement. He did have a history of an aortic placement with mechanical valve, as well as a CABG. The postoperative wound did get infected and dehisced and he had to be at a senior care at that trying to elicit whether or not he is supposed to on it and. On admission his INR was elevated to 2.6. Clinical time spent in all aspects of patient care: 15 minutes Visit Charges Inpatient E&M: 69814 Subs Hosp L2
--- NOTE | 2021-10-19 14:18 | CHAPLAIN ---
Type of Pastoral Visit _x__ Initial Visit ___ Follow-up Visit ___ On-call Visit ___ General Patient Visit ___ Spiritual Assessment ___ Family Conference ___ Bereavement ___ Rapid Response ___ Code Blue ___ Other (describe below) Pastoral Care Referral From _x__ Patient ___ Family ___ Nurse ___ Physician ___ Biofuels Manager ___ Elevated Motorman ___ Other (describe below) Sacrament/Intervention _x__ Active listening ___ Anointing ___ Mormon ___ Bereavement ___ Communion ___ Temi exploration ___ ___ Life review _x__ Prayer ___ Reconciliation ___ Sacrament of Sick ___ Supportive presence ___ Wedding ___ Other (describe below) Pastoral Comments patient speaks of other experiences in hospitals; pt has no concerns about this admission; pt welcomes prayer support
--- NOTE | 2021-10-19 14:54 | CASEMGMT ---
Notified Leobardo in [facility] that pt is inpatient. Pt is current pt of [facility]. Verified with her that pt is not currently taking coumadin per request of KEVIN Rabago.
--- NOTE | 2021-10-19 15:09 | CASEMGMT ---
HERMIN[facility] Readmission Note Previous Admission: 09/21/21-09/23/21 Diagnosis: CHF, elevated troponin DC Disposition: Home Current Admission Current Diagnosis:Pneumonia and confusion Pt presented to ER from home with confusion after waking up. Pt A&O x3 currently and sitting up in chair. Pt states he did follow through on his follow up appts and got his blood drawn 1 wk after prior dc. Discussed options of C, pt states his cousin would not let anyone in the home. He states he has an order to go to outpt therapy but has had to postpone due to a medication making him feel sick. He states he will resume with this order. Pt denies any homegoing needs at this time. Pt states he takes his meds as ordered. He states he used to get his meds through [facility] and he has a surplus. DC PLAN: Home, will go to outpt therapy as previously ordered.
[2021-10-19 16:15] LABS: Bedside Glucose 227 mg/dL (74-106)
[2021-10-19] MEDS: Juven (unflavored) Packet 1 PACKET PO (16:23)
[2021-10-19] MEDS: Atorvastatin Calcium 40 MG Tablet PO (20:18)
[2021-10-19 20:25] LABS: Bedside Glucose 196 mg/dL (74-106)
[2021-10-19 22:21] LABS: Bedside Glucose 308 mg/dL (74-106)
[2021-10-20] VITALS (12 sets, daily range): BP systolic 113–133; BP diastolic 67–84; PULSE 79–93; RESP 18–20; TEMP 36.3–36.9; O2SAT 94–99
[2021-10-20 04:39] LABS: International Normalized Ratio 1.5; Prothrombin Time (Protime)PT. 17.5 SECONDS (11.7-14.9)
[2021-10-20] MEDS: Insulin Lispro 100 UNIT/ML INSULN.PEN SC ×4 (06:01→21:19)
[2021-10-20 06:15] LABS: Bedside Glucose 186 mg/dL (74-106)
[2021-10-20] MEDS: Insulin Glargine-YFGN 100 UNIT/ML Pen 20 UNIT SC (08:14)
[2021-10-20] MEDS: Aspirin E.C. 81 MG Tablet PO (08:22)
[2021-10-20] MEDS: Potassium Chloride Oral Tablet 20 MEQ PO (08:22)
[2021-10-20] MEDS: Juven (unflavored) Packet 1 PACKET PO ×2 (08:22→16:35)
[2021-10-20 08:31] LABS: Bedside Glucose 177 mg/dL (74-106)
[2021-10-20] MEDS: 0.9% Saline Lock 10 ML Syringe IV ×3 (09:39→15:01)
[2021-10-20] MEDS: Ceftriaxone 1 GM/50 ML BAG IV (09:39)
--- NOTE | 2021-10-20 10:25 | DS.PCM_ITS ---
Providers Date of Admission: 10/18/21 Primary Care Physician: Dr. Saurabh Hernandez MD Consultations 10/18/21 15:44 Consult: Onc/Wound/toy trains and accessories salesperson Routine Comment: Reason for Consult:: LE wounds Reason For Visit: PNEUMONA AND CONFUSION Diagnosis Discharge Diagnosis (1) Pneumonia: Status: Acute Code(s): J18.9 - Pneumonia, unspecified organism (2) Hypoxia: Status: Acute Code(s): R09.02 - Hypoxemia (3) Confusion: Status: Acute Code(s): R41.0 - Disorientation, unspecified Medications at Discharge Home Medications metformin 500 mg tablet 500 mg PO BIDCM 05/31/20 atorvastatin 40 mg PO QHS 11/12/20 insulin aspart U-100 [Novolog Flexpen U-100 Insulin] 20 unit SUBCUT BIDCM 12/23/20 potassium chloride 20 meq PO DAILY 12/23/20 aspirin 81 mg tablet,delayed release 81 mg PO DAILY tab 10/08/21 furosemide 40 mg tablet 40 mg PO DAILY tab 10/08/21 gabapentin 100 mg capsule 200 mg PO BID cap 10/08/21 insulin glargine 100 unit/mL (3 mL) subcutaneous pen 35 unit SUBCUT DAILY ml 10/08/21 linagliptin 5 mg tablet 5 mg PO DAILY 10/08/21 lisinopril 5 mg tablet 5 mg PO DAILY 10/08/21 metoprolol succinate 25 mg tablet,extended release 24 hr 75 mg PO DAILY tab 10/08/21 Weight / BMI Weight Weight: 95.765 kg Body Mass Index (BMI) 29.4 ABG / Lab / Microbiology Data Result Diagrams: 10/19/21 05:15 10/19/21 05:15 Laboratory: Laboratory Results - last 24 hr 10/19/21 11:40: POC Glucose 308 H 10/19/21 16:11: POC Glucose 227 H 10/19/21 20:16: POC Glucose 196 H 10/20/21 03:48: PT 17.5 H, INR 1.5 10/20/21 06:00: POC Glucose 186 H 10/20/21 08:05: POC Glucose 177 H Microbiology: Microbiology 10/18/21 07:31 Blood Culture (Wb) - Anticubital Left Blood Culture - Preliminary No growth in 48 hours. 10/18/21 07:52 Blood Culture (Wb) - Anticubital Right Blood Culture - Preliminary No growth in 48 hours. 10/18/21 06:24 Nasal Secretion SARS-CoV-2 & FLU Antigen (Rapid) - Final Discharge Plan Admission Admit Date/Time: 10/18/21 17:52 Attending Provider: Jose Gutierrez Primary Care Provider: Saurabh Hernandez Chi Discharge Orders/Prescriptions Prescriptions: No Action metformin 500 mg tablet 500 mg PO BIDCM RF: 0 gabapentin 100 mg capsule 200 mg PO BID RF: 0 furosemide [Lasix] 40 mg tablet 40 mg PO DAILY RF: 0 metoprolol succinate 25 mg tablet extended release 24 hr 75 mg PO DAILY RF: 0 aspirin 81 mg tablet,delayed release (DR/EC) 81 mg PO DAILY RF: 0 Tradjenta 5 mg tablet 5 mg PO DAILY RF: 0 lisinopril 5 mg tablet 5 mg PO DAILY RF: 0 atorvastatin 40 mg Tablet 40 mg PO QHS RF: 0 Lantus Solostar U-100 Insulin 100 unit/mL (3 mL) insulin pen 35 unit SUBCUT DAILY RF: 0 potassium chloride 20 mEq Tablet,Er Particles/Crystals 20 meq PO DAILY RF: 0 insulin aspart U-100 [Novolog Flexpen U-100 Insulin] 100 unit/mL (3 mL) insulin pen 20 unit SUBCUT BIDCM RF: 0 Referrals / Follow Up: Saurabh Hernandez Chi, MD [Primary Care Provider] - Dhara Casas PA [PHYSICIAN LAMP SHADE SEWER] - Charges/Coding Visit Charges Inpatient E&M: 38534 Disch Hosp
--- NOTE | 2021-10-20 10:44 | PCM.PN.HOSP ---
Subjective Subjective Patient is a 70-year-old gentleman with multiple comorbidities including coronary artery disease with previous CABG, peripheral vascular disease as well as aortic valve disease status post mechanical aortic valve replacement admitted with progressive shortness of breath and assessment of community-acquired pneumonia made admitted to regular nursing floor for further management Objective Data Objective Data Vital Signs: Vital Signs Temp Pulse Resp BP Pulse Ox 97.5 F L 84 18 131/77 H 94 10/20/21 07:37 10/20/21 07:37 10/20/21 07:37 10/20/21 07:37 10/20/21 08:45 Oxygen Flow Rate (L/min) 1 Oxygen Delivery Method Nasal Cannula Weight: 95.765 kg Body Mass Index (BMI) 29.4 Intake & Output: Intake and Output for Last 24 Hours 10/18/21 10/19/21 10/20/21 23:59 23:59 23:59 Intake Total 455 / 455 1155 / 1155 650 / 650 Output Total 750 / 750 250 / 250 550 / 550 Balance -295 / -295 905 / 905 100 / 100 Lab / Micro Data Result Diagrams: 10/19/21 05:15 10/19/21 05:15 Labs: Laboratory Results - last 24 hr 10/19/21 11:40: POC Glucose 308 H 10/19/21 16:11: POC Glucose 227 H 10/19/21 20:16: POC Glucose 196 H 10/20/21 03:48: PT 17.5 H, INR 1.5 10/20/21 06:00: POC Glucose 186 H 10/20/21 08:05: POC Glucose 177 H Micro: Microbiology 10/18/21 07:31 Blood Culture (Wb) - Anticubital Left Blood Culture - Preliminary No growth in 48 hours. 10/18/21 07:52 Blood Culture (Wb) - Anticubital Right Blood Culture - Preliminary No growth in 48 hours. 10/18/21 06:24 Nasal Secretion SARS-CoV-2 & FLU Antigen (Rapid) - Final Physical Exam Narrative GENERAL: cooperative HEENT: Atraumatic; EYES; Anicteric, Normal Conjunctiva NECK; supple, normal thyroid, RESPIRATORY: Diminished to auscultation CARDIOVASCULAR: Regular S1 S2, GI: soft, normoactive bowel sounds, : No Renal angle tenderness; EXTREMITIES: No edema, no clubbing, MUSCULOSKELETAL: no muscle wasting NEURO: Awake; no lateralizing signs. SKIN: No Rash PSYCH; Flat affect Assessment & Plan Assessment/Plan (1) Pneumonia: (2) Hypoxia: (3) Confusion: PLAN: Patient is a 70-year-old gentleman with multiple comorbidities including coronary artery disease with previous CABG, peripheral vascular disease as well as aortic valve disease status post mechanical aortic valve replacement admitted with progressive shortness of breath and assessment of community-acquired pneumonia made admitted to regular nursing floor for further management 1. Pneumonia - Suspected to be secondary to streptococcal pneumonia, Blood and sputum cultures sent. Patient placed on Rocephin and Zithromax and placed on oxygen titrated to keep Pulse Ox greater than 90 2. Aortic valve disease ?Status post aortic valve replacement [facility] Bruce's mechanical valve. Patient INR is subtherapeutic. Bridged with Lovenox with daily monitoring of INR ordered 4. Acute on chronic congestive heart failure with reduced ejection fraction ?Echo obtained in September 2019 demonstrated EF of 30% with moderate global hypokinesis. Patient is currently on Lasix did continue 4. Coronary artery disease ?With previous CABG 5. Peripheral arterial disease ?With history of femoropopliteal bypass 6. Diabetes mellitus type 2 ?Did continue home regimen with Accu-Cheks before meals and at bedtime with sliding scale coverage 7. DVT prophylaxis ?On systemic anticoagulation Charges/Coding Visit Charges Inpatient E&M: 68666 [facility] Hosp L2
[2021-10-20] MEDS: Metoprolol(XL)Succ 25 MG Tablet 75 MG PO (10:48)
[2021-10-20] MEDS: Lisinopril 5 MG Tablet PO (10:50)
[2021-10-20] MEDS: LINAGLIPTIN 5 MG TABLET PO (10:50)
[2021-10-20] MEDS: Furosemide 40 MG Tablet PO (10:50)
--- NOTE | 2021-10-20 11:34 | CASEMGMT ---
Pt did not qualify for home O2.
[2021-10-20 11:35] LABS: Bedside Glucose 275 mg/dL (74-106)
[2021-10-20] MEDS: Enoxaparin 100 MG/ML Syringe 90 MG SC ×2 (15:01→21:20)
--- NOTE | 2021-10-20 15:15 | CASEMGMT ---
Social Work Note SW in to speak with pt to continue discussion of discharge plans. SW introduced self and role at [facility]. SW asked pt how he is doing. Pt states well I might as well go jump off a building. SW asked pt why he thinks that and pt states because it is something to do. SW spoke with pt regarding this comment. Pt states he is not going to do it. Pt denied any current suicidal thoughts/plans/ideations. Pt denied any history of suicidal thoughts/plans/ideations. Pt states I really need to stop saying things like that because some people take it seriously. SW informed pt that this worker just has to make sure pt is going to be safe. SW then spoke with pt regarding discharge plans. Pt states he is either going to go home with outpatient therapy or to SNF. Pt states he has been to [facility] before and would be willing to go there if needed but again states it just depends. SW asked pt if this worker could get the initially referral sent to [facility] to get the process started and pt agreeable to this. SW informed pt that if he wants to return home, then the referral could be cancelled for [facility]. Pt states understanding. SW placed a call to Supriya at [facility] and provided referral. SW faxed referral to [facility]. Plan: TBD Referral has been sent to [facility] to begin process of SNF in the event SNF is needed for pt. Maricel Randle PERL PROGRAMMER, SUPERVISOR GARMENT MANUFACTURING
[2021-10-20 16:45] LABS: Bedside Glucose 288 mg/dL (74-106)
[2021-10-20] MEDS: Atorvastatin Calcium 40 MG Tablet PO (21:20)
[2021-10-20 21:46] LABS: Bedside Glucose 324 mg/dL (74-106)
[2021-10-21] VITALS (9 sets, daily range): BP systolic 103–130; BP diastolic 66–82; PULSE 72–89; RESP 18–28; TEMP 36.3–36.6; O2SAT 77–100
[2021-10-21] MEDS: 0.9% Saline Lock 10 ML Syringe IV (06:03)
[2021-10-21] MEDS: Insulin Lispro 100 UNIT/ML INSULN.PEN SC ×4 (06:08→21:44)
[2021-10-21 06:10] LABS: Bedside Glucose 213 mg/dL (74-106)
[2021-10-21 06:47] LABS: Hematocrit 39.9 % (40-54); Hemoglobin 12.6 g/dL (13.0-16.5); Mean Corp Hgb Conc 31.6 g/dL (32-36); Mean Corpuscular Hgb 26.9 pg (27.0-32.0); Mean Corpuscular Volume 85.3 fL (80-94); Mean Platelet Vol. 11.4 fl (6.2-12.0); Platelet Count 177 K/mm3 (150-450); RBC Distribution Width CV 16.6 % (11.6-14.6); RBC Distribution Width SD 51.1 fl (35.1-43.9); Red Blood Count 4.68 M/mm3 (4.6-6.2)
[2021-10-21 07:00] LABS: International Normalized Ratio 1.5; Prothrombin Time (Protime)PT. 17.7 SECONDS (11.7-14.9)
[2021-10-21 07:12] LABS: Anion Gap 5 (5-15); BUN 37 mg/dL (7-18); Calcium,Total 8.5 mg/dL (8.5-10.1); Chloride 109 mmol/L (98-107); Creatinine, Serum 0.97 mg/dL (0.70-1.30); EST Glomerular Filtration Rate 81 mL/min (>60); Est Glom Filt Rate - Afr Amer 98 mL/min (>60); Estimated Creatinine Clearance 77.63 ml/min; Glucose 205 mg/dL (74-106); Magnesium 2.1 mg/dL (1.6-2.6); Potassium 3.6 mmol/L (3.5-5.1); Sodium Level 137 mmol/L (136-145)
--- NOTE | 2021-10-21 07:23 | PN.HOSP_ITS ---
Subjective Subjective Patient seen remains physically deconditioned. INR still subtherapeutic at 1.5 Objective Data Objective Data Vital Signs: Vital Signs Temp Pulse Resp BP Pulse Ox 98 F 72 20 H 129/81 H 99 10/21/21 05:49 10/21/21 05:49 10/21/21 05:49 10/21/21 05:49 10/21/21 05:49 Oxygen Flow Rate (L/min) [ 0 AMBULATING on Room Air] Oxygen Flow Rate (L/min) [At 0 REST on Room Air] Oxygen Flow Rate (L/min) [At 1 REST with Oxygen] Oxygen Flow Rate (L/min) 1 Oxygen Delivery Method Nasal Cannula Weight: 95.765 kg Body Mass Index (BMI) 29.4 Intake & Output: Intake and Output for Last 24 Hours 10/19/21 10/20/21 10/21/21 23:59 23:59 23:59 Intake Total 1155 / 1155 1655 / 1655 500 / 500 Output Total 250 / 250 1650 / 1650 750 / 750 Balance 905 / 905 5 / 5 -250 / -250 Lab / Micro Data Result Diagrams: 10/21/21 05:46 10/21/21 05:46 Labs: Laboratory Results - last 24 hr 10/20/21 08:05: POC Glucose 177 H 10/20/21 11:30: POC Glucose 275 H 10/20/21 16:16: POC Glucose 288 H 10/20/21 21:18: POC Glucose 324 H 10/21/21 05:46: WBC 7.0, RBC 4.68, Hgb 12.6 L, Hct 39.9 L, MCV 85.3, MCH 26.9 L, MCHC 31.6 L, RDW Std Deviation 51.1 H, RDW Coeff of Estrada 16.6 H, Plt Count 177, MPV 11.4 10/21/21 05:46: PT 17.7 H, INR 1.5 10/21/21 05:46: Sodium 137, Potassium 3.6, Chloride 109 H, Carbon Dioxide 23.0, Anion Gap 5, BUN 37 H, Creatinine 0.97, Estim Creat Clear Calc 77.63, Est GFR (MDRD) Af Amer 98, Est GFR (MDRD) Non-Af 81, BUN/Creatinine Ratio 38.0 H, Glucose 205 H, Calcium 8.5, Magnesium 2.1 10/21/21 06:06: POC Glucose 213 H Micro: Microbiology 10/18/21 07:31 Blood Culture (Wb) - Anticubital Left Blood Culture - Preliminary No growth in 48 hours. 10/18/21 07:52 Blood Culture (Wb) - Anticubital Right Blood Culture - Preliminary No growth in 48 hours. 10/18/21 06:24 Nasal Secretion SARS-CoV-2 & FLU Antigen (Rapid) - Final Physical Exam Narrative GENERAL: cooperative HEENT: Atraumatic; EYES; Anicteric, Normal Conjunctiva NECK; supple, normal thyroid, RESPIRATORY: Diminished to auscultation CARDIOVASCULAR: Regular S1 S2, GI: soft, normoactive bowel sounds, : No Renal angle tenderness; EXTREMITIES: No edema, no clubbing, MUSCULOSKELETAL: no muscle wasting NEURO: Awake; no lateralizing signs. SKIN: No Rash PSYCH; Flat affect Assessment & Plan Assessment/Plan (1) Pneumonia: (2) Hypoxia: (3) Confusion: PLAN: Patient is a 70-year-old gentleman with multiple comorbidities including coronary artery disease with previous CABG, peripheral vascular disease as well as aortic valve disease status post mechanical aortic valve replacement admitted with progressive shortness of breath and assessment of community-acquired pneumonia made admitted to regular nursing floor for further management 1. Pneumonia - Suspected to be secondary to streptococcal pneumonia, Blood and sputum cultures sent. Patient placed on Rocephin and Zithromax and placed on oxygen titrated to keep Pulse Ox greater than 90 2. Aortic valve disease ?Status post aortic valve replacement [facility] Bruce's mechanical valve. Patient INR is subtherapeutic. Bridged with Lovenox with daily monitoring of INR ordered 4. Acute on chronic congestive heart failure with reduced ejection fraction ?Echo obtained in September 2019 demonstrated EF of 30% with moderate global hypokinesis. Patient is currently on Lasix did continue 4. Coronary artery disease ?With previous CABG 5. Peripheral arterial disease ?With history of femoropopliteal bypass 6. Diabetes mellitus type 2 ?Did continue home regimen with Accu-Cheks before meals and at bedtime with sliding scale coverage 7. DVT prophylaxis ?On systemic anticoagulation 8. Physical deconditioning - Requested for PT OT eval and bilingual social worker to assist with discharge planning; plan for patient to be discharged to [facility] pending insurance approval Charges/Coding Visit Charges Inpatient E&M: 77351 Subs Hosp L2
[2021-10-21] MEDS: Aspirin E.C. 81 MG Tablet PO (08:13)
[2021-10-21] MEDS: Potassium Chloride Oral Tablet 20 MEQ PO (08:13)
[2021-10-21] MEDS: Juven (unflavored) Packet 1 PACKET PO ×2 (08:13→16:28)
[2021-10-21] MEDS: Insulin Glargine-YFGN 100 UNIT/ML Pen 20 UNIT SC (08:13)
--- NOTE | 2021-10-21 08:33 | CASEMGMT ---
Social Work Note SW spoke with Supriya at [facility]. [facility] is able to accept pt and pre-cert has been submitted. Plan: TBD. Home vs [facility] pending pre-cert Maricel Randle MICRO LAB ANALYST, RAIMANN MACHINE OPERATOR
[2021-10-21] MEDS: Ceftriaxone 1 GM/50 ML BAG IV (10:25)
[2021-10-21] MEDS: Enoxaparin 100 MG/ML Syringe 90 MG SC ×2 (10:37→21:44)
[2021-10-21] MEDS: Furosemide 40 MG Tablet PO (10:39)
[2021-10-21] MEDS: Metoprolol(XL)Succ 25 MG Tablet 75 MG PO (10:39)
[2021-10-21] MEDS: Lisinopril 5 MG Tablet PO (10:40)
[2021-10-21] MEDS: LINAGLIPTIN 5 MG TABLET PO (10:43)
--- NOTE | 2021-10-21 11:16 | CASEMGMT ---
Social Work Note SW in to speak with pt. SW informed pt that [facility] is able to accept pt pending pre-cert. Pt states that he is still agreeable to going to [facility]. Plan: [facility] pending pre-cert Maricel Randle DAMAGE CUTTER, PROCESS OWNER
[2021-10-21 12:05] LABS: Bedside Glucose 341 mg/dL (74-106)
--- NOTE | 2021-10-21 16:13 | CASEMGMT ---
Social Work Note SW spoke with Supriya at [facility] regarding pre-cert. Supriya states pre-cert is still pending. Plan: [facility] pending pre-cert Maricel Randle STORES LABORER, GUM ROLLING MACHINE OPERATOR
[2021-10-21 16:35] LABS: Bedside Glucose 338 mg/dL (74-106)
[2021-10-21] MEDS: Atorvastatin Calcium 40 MG Tablet PO (21:44)
[2021-10-21 21:50] LABS: Bedside Glucose 247 mg/dL (74-106)
[2021-10-22] VITALS (8 sets, daily range): BP systolic 123–147; BP diastolic 73–94; PULSE 73–87; RESP 18–22; TEMP 36.4–36.8; O2SAT 98–100
[2021-10-22] MEDS: Insulin Lispro 100 UNIT/ML INSULN.PEN SC ×4 (06:27→21:26)
[2021-10-22 06:29] LABS: Hematocrit 39.2 % (40-54); Hemoglobin 12.3 g/dL (13.0-16.5); Mean Corp Hgb Conc 31.4 g/dL (32-36); Mean Corpuscular Hgb 26.5 pg (27.0-32.0); Mean Corpuscular Volume 84.5 fL (80-94); Mean Platelet Vol. 12.3 fl (6.2-12.0); Platelet Count 186 K/mm3 (150-450); RBC Distribution Width CV 16.3 % (11.6-14.6); RBC Distribution Width SD 50.4 fl (35.1-43.9); Red Blood Count 4.64 M/mm3 (4.6-6.2); White Blood Count 7.6 K/mm3 (4.4-11.0)
[2021-10-22 06:36] LABS: Bedside Glucose 200 mg/dL (74-106)
[2021-10-22 06:45] LABS: International Normalized Ratio 1.7; Prothrombin Time (Protime)PT. 19.5 SECONDS (11.7-14.9)
[2021-10-22 06:49] LABS: Anion Gap 5 (5-15); BUN 39 mg/dL (7-18); BUN/Creat Ratio 46.8 RATIO (10-20); Calcium,Total 8.4 mg/dL (8.5-10.1); Chloride 111 mmol/L (98-107); Creatinine, Serum 0.83 mg/dL (0.70-1.30); EST Glomerular Filtration Rate 97 mL/min (>60); Est Glom Filt Rate - Afr Amer 118 mL/min (>60); Estimated Creatinine Clearance 90.72 ml/min; Glucose 189 mg/dL (74-106); Potassium 3.8 mmol/L (3.5-5.1); Sodium Level 139 mmol/L (136-145)
[2021-10-22] MEDS: Aspirin E.C. 81 MG Tablet PO (09:36)
[2021-10-22] MEDS: Furosemide 40 MG Tablet PO (09:36)
[2021-10-22] MEDS: Potassium Chloride Oral Tablet 20 MEQ PO (09:36)
[2021-10-22] MEDS: Juven (unflavored) Packet 1 PACKET PO ×2 (09:36→16:21)
[2021-10-22] MEDS: Enoxaparin 100 MG/ML Syringe 90 MG SC ×2 (09:37→21:26)
[2021-10-22] MEDS: Metoprolol(XL)Succ 25 MG Tablet 75 MG PO (09:37)
[2021-10-22] MEDS: LINAGLIPTIN 5 MG TABLET PO (09:39)
[2021-10-22] MEDS: Lisinopril 5 MG Tablet PO (09:39)
[2021-10-22] MEDS: Insulin Glargine-YFGN 100 UNIT/ML Pen 20 UNIT SC (09:41)
[2021-10-22] MEDS: 0.9% Saline Lock 10 ML Syringe IV (09:43)
[2021-10-22] MEDS: Ceftriaxone 1 GM/50 ML BAG IV (09:44)
--- NOTE | 2021-10-22 10:10 | CASEMGMT ---
Addendum entered by Maricel Randle 10/22/21 14:53: KALANI placed a call to Supriya at [facility] regarding pt's pre-cert. Supriya states pre-cert is still pending. Plan: [facility] pending pre-cert. Original Note: Social Work Note KALANI faxed updated clinicals to [facility]. KALANI wrote on fax coversheet to let this worker know when pre-cert is obtained. Plan: [facility] pending pre-cert Maricel Randle SYSTEM TECHNOLOGIST, CONSTRUCTION PROJECT COORDINATOR
[2021-10-22 11:51] LABS: Bedside Glucose 267 mg/dL (74-106)
--- NOTE | 2021-10-22 15:43 | CASEMGMT ---
Addendum entered by Maricel Randle 10/22/21 16:26: KALANI updated physician. KALANI placed a call to [facility] and spoke with Varsha. KALANI asked Varsha to schedule a peer to peer. Varsha states that peer to peer is already scheduled and has to be completed by 9:00am 10/23/2021. Varsha states that either the physician can call [facility] and provide member's name, , Member ID and then be transferred to the MD for [facility] or this worker can call and provide pt's information and then hand phone to the physician. KALANI asked Varsha if this worker could transfer phone call to physician and Varsha states that will also work. KALANI updated physician. KALANI will arrange peer to peer tomorrow morning. SW to call Peer to Peer [phone] Option 5 and will provide pt's information and then transfer call to physician. Original Note: Social Work Note KALANI received message from [facility] stating peer to peer is being requested. Peer to peer number is [phone] and option 5 and peer to peer has to be completed by 9:00am tomorrow morning. Maricel Randle TIRE MAN, VISION MIXER
--- NOTE | 2021-10-22 15:50 | CASEMGMT ---
Social Work Note SW placed a call to Supriya at [facility] and updated her that [facility] is requesting Peer to Peer. Supriya checked pt's Medicaid benefits and pt could still go to [facility] under [employer] Benefit but it will cost pt $1,051 a month. Maricel Randle TURFGRASS TECHNICIAN, GRAPHIC TECHNICIAN
--- NOTE | 2021-10-22 16:14 | PN.HOSP_ITS ---
Subjective Subjective Patient seen and examined. He felt much better and had no active complaints. Review of systems is otherwise negative. Objective Data Objective Data Vital Signs: Vital Signs Temp Pulse Resp BP Pulse Ox 97.6 F L 87 18 147/81 H 99 10/22/21 14:00 10/22/21 14:00 10/22/21 14:00 10/22/21 14:00 10/22/21 14:00 Oxygen Flow Rate (L/min) [ 0 AMBULATING on Room Air] Oxygen Flow Rate (L/min) [At 0 REST on Room Air] Oxygen Flow Rate (L/min) [At 1 REST with Oxygen] Oxygen Flow Rate (L/min) 2 Oxygen Delivery Method Nasal Cannula Weight: 211 lb 2 oz Body Mass Index (BMI) 29.4 Intake & Output: Intake and Output for Last 24 Hours 10/20/21 10/21/21 10/22/21 23:59 23:59 23:59 Intake Total 1655 / 1655 805 / 805 305 / 305 Output Total 1650 / 1650 850 / 1100 475 / 475 Balance 5 / 5 -45 / -295 -170 / -170 Lab / Micro Data Result Diagrams: 10/22/21 05:16 10/22/21 05:16 Labs: Laboratory Results - last 24 hr 10/21/21 16:27: POC Glucose 338 H 10/21/21 21:42: POC Glucose 247 H 10/22/21 05:16: WBC 7.6, RBC 4.64, Hgb 12.3 L, Hct 39.2 L, MCV 84.5, MCH 26.5 L, MCHC 31.4 L, RDW Std Deviation 50.4 H, RDW Coeff of Estrada 16.3 H, Plt Count 186, MPV 12.3 H 10/22/21 05:16: PT 19.5 H, INR 1.7 10/22/21 05:16: Sodium 139, Potassium 3.8, Chloride 111 H, Carbon Dioxide 23.0, Anion Gap 5, BUN 39 H, Creatinine 0.83, Estim Creat Clear Calc 90.72, Est GFR (MDRD) Af Amer 118, Est GFR (MDRD) Non-Af 97, BUN/Creatinine Ratio 46.8 H, Glucose 189 H, Calcium 8.4 L 10/22/21 06:26: POC Glucose 200 H 10/22/21 11:34: POC Glucose 267 H Micro: Microbiology 10/18/21 07:31 Blood Culture (Wb) - Anticubital Left Blood Culture - Preliminary No growth in 48 hours. 10/18/21 07:52 Blood Culture (Wb) - Anticubital Right Blood Culture - Preliminary No growth in 48 hours. 10/18/21 06:24 Nasal Secretion SARS-CoV-2 & FLU Antigen (Rapid) - Final Physical Exam Const alert, oriented x3 and no apparent distress Exam Limitations: no limitations HEENT head/scalp atraumatic and moist oral mucous membranes Head and Scalp: normocephalic Eyes PERRL, EOMs intact bilaterally and conjunctivae normal Neck no lymphadenopathy and supple Resp Resp Narrative: diminished breath sounds bibasally, no wheezes or crackles. On 2L of oxygen by nasal canula Cardio regular rate, regular rhythm, S1 normal heart sound, S2 normal heart sound and no murmurs GI normal to inspection, nondistended, normoactive bowel sounds, soft to palpation, non-tender and non-distended Extremity normal to inspection, full ROM and no clubbing, cyanosis or edema Peripheral Pulses: Yes pulses 2+ throughout Skin no rashes or lesions noted Neuro oriented x3, CN's II-XII intact bilaterally and moves all extremities Sensorium / Orientation: awake and alert Psych affect normal Assessment & Plan Assessment/Plan (1) Pneumonia: (2) Hypoxia: PLAN: #Acute hypoxic respiratory insufficiency due to Community acquired Pneumonia * on IV ceftriaxone and azithromycin * breathing treatment with bronchodilators * blood cultures were negative. * #Acute on chronic HFrEF * has known EF of 30% per echo, with moderate global hypokinesis * on lasix * #CAD s/p CABG; stable #Peripheral artery disease: has history of fempop bypass. #TYpe 2 diabetes mellitus * on ISS. Accuchecks ACS * #Aortic stenosis s/p aortivc valve replacement * INR is subtherapeutic, so being bridged with lovenox. * INR today is 1.7 * DVT prophylaxis; on therapeutic lovenox Disposition: * awaiting SNF placement. * This was denied by Insurance today. * Hospitalist to do a peer to peer with insurance company tomorrow to see if this can help facilitate placement. Charges/Coding Visit Charges Inpatient E&M: 28511 Subs Hosp L2
[2021-10-22 16:35] LABS: Bedside Glucose 253 mg/dL (74-106)
[2021-10-22] MEDS: Atorvastatin Calcium 40 MG Tablet PO (21:26)
[2021-10-22 22:10] LABS: Bedside Glucose 328 mg/dL (74-106)
[2021-10-23] VITALS (7 sets, daily range): BP systolic 123–141; BP diastolic 65–96; PULSE 74–92; RESP 15–18; TEMP 36.6–36.9; O2SAT 94–100
[2021-10-23 05:54] LABS: Hematocrit 39.3 % (40-54); Hemoglobin 12.1 g/dL (13.0-16.5); Mean Corp Hgb Conc 30.8 g/dL (32-36); Mean Corpuscular Volume 84.5 fL (80-94); Mean Platelet Vol. 11.4 fl (6.2-12.0); Platelet Count 175 K/mm3 (150-450); RBC Distribution Width CV 16.3 % (11.6-14.6); RBC Distribution Width SD 49.3 fl (35.1-43.9); Red Blood Count 4.65 M/mm3 (4.6-6.2); White Blood Count 7.8 K/mm3 (4.4-11.0)
[2021-10-23 06:06] LABS: International Normalized Ratio 2.5; Prothrombin Time (Protime)PT. 25.8 SECONDS (11.7-14.9)
[2021-10-23 06:20] LABS: Anion Gap 5 (5-15); BUN 35 mg/dL (7-18); BUN/Creat Ratio 44.6 RATIO (10-20); Calcium,Total 8.5 mg/dL (8.5-10.1); Chloride 112 mmol/L (98-107); Creatinine, Serum 0.78 mg/dL (0.70-1.30); EST Glomerular Filtration Rate 104 mL/min (>60); Est Glom Filt Rate - Afr Amer 126 mL/min (>60); Glucose 124 mg/dL (74-106); Potassium 3.7 mmol/L (3.5-5.1); Sodium Level 141 mmol/L (136-145)
[2021-10-23] MEDS: Acetaminophen 325 MG Tablet 650 MG PO (06:29)
[2021-10-23] MEDS: Insulin Lispro 100 UNIT/ML INSULN.PEN SC ×3 (06:30→16:52)
[2021-10-23 06:35] LABS: Bedside Glucose 163 mg/dL (74-106)
[2021-10-23] MEDS: Aspirin E.C. 81 MG Tablet PO (07:36)
[2021-10-23] MEDS: Juven (unflavored) Packet 1 PACKET PO (07:36)
[2021-10-23] MEDS: Potassium Chloride Oral Tablet 20 MEQ PO (07:36)
--- NOTE | 2021-10-23 08:22 | CASEMGMT ---
Social Work Note [facility]. KALANI spoke with Saranya. KALANI informed Saranya that this worker is calling to provide patient demographics and then will transfer the phone to the physician. Saranya states that due to HIPPA this worker cannot call in to provide patient information and that the MD, KEVIN, DO has to be the person to call in and provide pt's demographics and then complete peer to peer. KALANI informed Saranya that this worker called yesterday and spoke with staff that told this worker that this worker could call in and provide demographics and then transfer the phone call/hand the phone to the physician. Saranya states that her supervisor wood crew is stating that this worker cannot do that, the MD has to call in. KALANI updated physician. KALANI then received call from from physician stating that she completed the peer to peer. [facility] by 12 (noon) today as they don't have any updated PT from a few days ago. KALANI will reach out to Supriya at [facility] to send updated PT and will also speak with PT to work with pt this morning. Plan: [facility] pending pre-cert Maricel Randle ADVERTISING DISPATCH CLERKS SUPERVISOR, PRESSER AND BLOCKER KNITTED GOODS
--- NOTE | 2021-10-23 08:36 | CASEMGMT ---
Addendum entered by Maricel Randle 10/23/21 10:19: KALANI faxed PT/OT from today to Supriya at [facility] who will submit them to insurance. Addendum entered by Maricel Randle 10/23/21 09:13: KALANI spoke with PT/OT. They have worked with pt already this morning and will put in notes shortly. Original Note: Social Work Note KALANI placed a call to Supriya at [facility] and requested she send [facility] updated PT per there request. Supriya states she has the PT/OT from yesterday and will send them this morning. Plan: [facility] pending pre-cert Maricel Randle DIRECTOR GIFT, ACCESS CONSULTANT
[2021-10-23] MEDS: Insulin Glargine-YFGN 100 UNIT/ML Pen 20 UNIT SC (09:18)
[2021-10-23] MEDS: Lisinopril 5 MG Tablet PO (09:19)
[2021-10-23] MEDS: Metoprolol(XL)Succ 25 MG Tablet 75 MG PO (09:19)
[2021-10-23] MEDS: LINAGLIPTIN 5 MG TABLET PO (09:19)
[2021-10-23] MEDS: Furosemide 40 MG Tablet PO (09:20)
[2021-10-23] MEDS: Enoxaparin 100 MG/ML Syringe 90 MG SC (09:20)
[2021-10-23] MEDS: Ceftriaxone 1 GM/50 ML BAG IV (09:28)
[2021-10-23 11:31] LABS: Bedside Glucose 184 mg/dL (74-106)
[2021-10-23 11:35] LABS: Bedside Glucose 245 mg/dL (74-106)
--- NOTE | 2021-10-23 13:03 | CASEMGMT ---
Social Work Note SW placed a call to Supriya at [facility] for update on pt's pre-cert. SW in to speak with pt. SW updated pt that there is a good chance he may get denied SNF as he is walking really well. SW informed pt that he could go to [facility] under his Medicaid but it will cost him $1,051 a month. Pt states he cannot afford that so he will have to go home. SW informed pt that he can go home with outpatient therapy. Pt asked if the hospital van will be able to transport him home and this worker told pt that it just depends on their schedule. Pt states understanding. SW to continue to follow. Maricel Randle NURSE PRN, CANDLE WRAPPER
--- NOTE | 2021-10-23 13:30 | CASEMGMT ---
Social Work Note SW received call from Supriya at [facility] stating pre-cert was obtained. Pt can discharge to [facility] today. KALANI updated physician. Plan: [facility] skilled today Maricel Randle RAILS DEVELOPER, PRINCIPAL LIBRARIAN
--- NOTE | 2021-10-23 14:30 | CASEMGMT ---
Social Work Note SW updated pt that pre-cert was obtained for [facility] and he will discharge there today. Pt states understanding. Plan: [facility] skilled today Maricel Randle GUEST SERVICES MANAGER, GOLF CLUB REPAIRER
--- NOTE | 2021-10-23 14:47 | DS.PCM_ITS ---
Providers Date of Admission: 10/18/21 Primary Care Physician: Dr. Saurabh Hernandez MD Consultations 10/18/21 15:44 Consult: Onc/Wound/procurement professional logistics Routine Comment: Reason for Consult:: LE wounds Reason For Visit: PNEUMONA AND CONFUSION Diagnosis Discharge Diagnosis (1) Pneumonia: Status: Acute Code(s): J18.9 - Pneumonia, unspecified organism (2) Hypoxia: Status: Acute Code(s): R09.02 - Hypoxemia Medications at Discharge Home Medications metformin 500 mg tablet 500 mg PO BIDCM 05/31/20 atorvastatin 40 mg PO QHS 11/12/20 insulin aspart U-100 [Novolog Flexpen U-100 Insulin] 20 unit SUBCUT BIDCM 12/23/20 potassium chloride 20 meq PO DAILY 12/23/20 aspirin 81 mg tablet,delayed release 81 mg PO DAILY tab 10/08/21 furosemide 40 mg tablet 40 mg PO DAILY tab 10/08/21 gabapentin 100 mg capsule 200 mg PO BID cap 10/08/21 insulin glargine 100 unit/mL (3 mL) subcutaneous pen 35 unit SUBCUT DAILY ml 10/08/21 linagliptin 5 mg tablet 5 mg PO DAILY 10/08/21 lisinopril 5 mg tablet 5 mg PO DAILY 10/08/21 metoprolol succinate 25 mg tablet,extended release 24 hr 75 mg PO DAILY tab 10/08/21 warfarin [Jantoven] 6 mg PO DAILY #30 tab 10/23/21 Hospital Course Operations None Procedures None Summary of Care Provided Minutes Spent on Discharge: 60 Hospital Course: Patient is a 70-year-old male with past medical history as outlined was admitted through the ED on 10/18/2021 with complaint of altered mental status. Per the admitting note, patient had woken up the morning with confusion which persisted and he was also noted to be having speech difficulties and difficulty answering questions. said patient did have some baseline mumbling which made his speech difficult to understand but he seemed more abnormal on the day of admission. His last known well was the night prior when he went to bed. CT of the brain was negative for any acute intracranial pathology. He was requiring 3 L of oxygen saturating 97% and chest x-ray was suspicious for pneumonia in the left midlung with mildly enlarged heart and normal pulmonary vascular congestion. He was admitted and managed for community-acquired pneumonia and acute metabolic encephalopathy due to community-acquired pneumonia. He was started on IV ceftriaxone and azithromycin. Was treated with fluids. His mentation gradually improved and he became alert and oriented and communicative. His encephalopathy resolved and he was weaned off of oxygen. Patient's BNP was also noted to be elevated so he was treated for acute on chronic heart failure with preserved ejection fraction. He had known EF of 30% with moderate global hypokinesis. He was continued on his Lasix. Patient had a history of aortic valve replacement and his INR was subtherapeutic because he had not been compliant with his Coumadin. His Coumadin was resumed and he was also placed on bridging with Lovenox. Physical therapy work with patient and he was deemed as needing nursing home care. Insurance initially denied the precertification but after successful peer to peer review, this denial was overturned. He was discharged to nursing home facility on 10/23/2021. He was given a prescription for p.o. Coumadin 6 mg daily and he is to have his INR monitored to maintain a therapeutic INR of 2-3. Patient seen and examined prior to discharge. He felt well and had a lot of eventful night. He had no complaints. He was on room air. Review of systems otherwise negative. Labs vitals reviewed. Home medication reviewed and reconciled. Physical Exam Const alert, oriented x3 and no apparent distress General Appearance: cooperative and comfortable Orientation / Consciousness: awake, oriented to person, oriented to place and oriented to time Exam Limitations: no limitations HEENT normocephalic, head/scalp atraumatic, hearing grossly normal bilaterally and moist oral mucous membranes Eyes PERRL, EOMs intact bilaterally and conjunctivae normal Neck no lymphadenopathy, supple and no JVD Resp normal respiratory effort, no retractions and no use of accessory muscles Resp Narrative: diminished breath sounds bibasally, no wheezes or crackles. On room air Effort and Inspection: tachypneic, respiratory distress and labored Auscultation: rhonchi and wheezes Cardio regular rate, regular rhythm, S1 normal heart sound, S2 normal heart sound and no murmurs GI normal to inspection, nondistended, normoactive bowel sounds, soft to palpation, non-tender and non-distended Extremity normal to inspection, full ROM and no clubbing, cyanosis or edema Skin no rashes or lesions noted Neuro oriented x3, CN's II-XII intact bilaterally and moves all extremities Sensorium / Orientation: awake and alert Psych affect normal Weight / BMI Weight Weight: 211 lb 2 oz Body Mass Index (BMI) 29.4 ABG / Lab / Microbiology Data Result Diagrams: 10/23/21 05:00 10/23/21 05:00 Laboratory: Laboratory Results - last 24 hr 10/22/21 16:18: POC Glucose 253 H 10/22/21 21:25: POC Glucose 328 H 10/23/21 05:00: WBC 7.8, RBC 4.65, Hgb 12.1 L, Hct 39.3 L, MCV 84.5, MCH 26.0 L, MCHC 30.8 L, RDW Std Deviation 49.3 H, RDW Coeff of Estrada 16.3 H, Plt Count 175, MPV 11.4 10/23/21 05:00: PT 25.8 H, INR 2.5 10/23/21 05:00: Sodium 141, Potassium 3.7, Chloride 112 H, Carbon Dioxide 24.0, Anion Gap 5, BUN 35 H, Creatinine 0.78, Estim Creat Clear Calc 75.30, Est GFR (MDRD) Af Amer 126, Est GFR (MDRD) Non-Af 104, BUN/Creatinine Ratio 44.6 H, Glucose 124 H, Calcium 8.5 10/23/21 06:26: POC Glucose 163 H 10/23/21 09:19: POC Glucose 184 H 10/23/21 11:30: POC Glucose 245 H Microbiology: Microbiology 10/18/21 07:52 Blood Culture (Wb) - Anticubital Right Blood Culture - Final No growth in 5 days. 10/18/21 07:31 Blood Culture (Wb) - Anticubital Left Blood Culture - Final No growth in 5 days. 10/18/21 06:24 Nasal Secretion SARS-CoV-2 & FLU Antigen (Rapid) - Final D/C Instructions Discharge Diet: Low fat / Low cholesterol Discharge Activity: Return to Normal Activity Weight Bearing Status: Weight bearing as tolerated Call your doctor if you observe: Fever of 101 or Higher, Shortness of breath, Dizziness, Swelling in the ankles, Chest pain and Increased palpitations (irregular heartbeat) Meaningful Use Info Meaningful Use Diagnoses (Choose all that apply): CHF CHF SELMA/ARB ordered at discharge?: Yes Documented LVEF (%): 30 Discharge Plan Admission Admit Date/Time: 10/18/21 17:52 Primary Reason for Your Visit: pneumonia, heart failure Attending Provider: Cami Nance Primary Care Provider: Saurabh Hernandez Chi Instructions Patient Instructions: Coping with Heart Failure, ED Pneumonia (Adult) Discharge Orders/Prescriptions Prescriptions: New warfarin [Jantoven] 6 mg Tablet 6 mg PO DAILY Qty: 30 RF: 1 Continued metformin 500 mg tablet 500 mg PO BIDCM RF: 0 gabapentin 100 mg capsule 200 mg PO BID RF: 0 furosemide [Lasix] 40 mg tablet 40 mg PO DAILY RF: 0 metoprolol succinate 25 mg tablet extended release 24 hr 75 mg PO DAILY RF: 0 aspirin 81 mg tablet,delayed release (DR/EC) 81 mg PO DAILY RF: 0 Tradjenta 5 mg tablet 5 mg PO DAILY RF: 0 lisinopril 5 mg tablet 5 mg PO DAILY RF: 0 atorvastatin 40 mg Tablet 40 mg PO QHS RF: 0 Lantus Solostar U-100 Insulin 100 unit/mL (3 mL) insulin pen 35 unit SUBCUT DAILY RF: 0 potassium chloride 20 mEq Tablet,Er Particles/Crystals 20 meq PO DAILY RF: 0 insulin aspart U-100 [Novolog Flexpen U-100 Insulin] 100 unit/mL (3 mL) insulin pen 20 unit SUBCUT BIDCM RF: 0 Referrals / Follow Up: Saurabh Hernandez Chi, MD [Primary Care Provider] - Within 2 Weeks Dhara Casas PA [PHYSICIAN CHART SNATCHER] - Within 2 Weeks Disposition Disposition (needs filled in before D/C Order can be placed): [facility]way Facility Charges/Coding Visit Charges Inpatient E&M: 62807 Disch Hosp
--- NOTE | 2021-10-23 15:27 | TREXTCAR_ITS ---
Diet 10/22/21 11:54 Diet: Consistent Carb - Calorie Controlled Dietary Modifications:: Cardiac / Heart Healthy Is pt able to select menu?: No How many daily calories?: 2000 calorie Routine Orders/Code Status Enema Type: Fleetz Enema Frequency: Daily PRN Suppository Type: Dulcolax 10mg Suppository Frequency: Daily PRN O2 Frequency: PRN Keep PO Greater than or Equal to (%): 90 Wound(s) rt leg: Wound Type: scattered dry abrasions lt leg: Wound Type: scattered dry abrasions coccyx: Wound Type: Pressure Injury Therapies Weight Bearing: Weight bearing as tolerated Physical Therapy: Eval and Treat Occupational Therapy: Eval and Treat Problem/Diagnosis (1) Pneumonia: Status: Acute (2) Hypoxia: Status: Acute Allergies/Procedures Done in Hospital Allergies No Known Allergies Allergy (Verified 09/21/21 13:36) Procedures: None Type of Care/Length of Stay Estimated LOS: Convalescent Care Less Than 30 days Type of Care Needed: Skilled Rehab Potential: Fair Prognosis: Fair Additional Orders/Day of Discharge Additional Orders: monitor INR to maintain INR between 2-3 Day of Discharge: 10/23/21 Dietary and Speech Recommendations Dietitian Recommendations/Changes: Continue 1999 yinka Cardiac diet Continue melvi bid w/ medpass to help w/ skin healing - d/c when skin healed Discharge Plan Admission Admit Date/Time: 10/18/21 17:52 Primary Reason for Your Visit: pneumonia, heart failure Attending Provider: Cami Nance Primary Care Provider: Saurabh Hernandez Chi Instructions Patient Instructions: Coping with Heart Failure, ED Pneumonia (Adult) Discharge Orders/Prescriptions Prescriptions: New warfarin [Jantoven] 6 mg Tablet 6 mg PO DAILY Qty: 30 RF: 1 Continued metformin 500 mg tablet 500 mg PO BIDCM RF: 0 gabapentin 100 mg capsule 200 mg PO BID RF: 0 furosemide [Lasix] 40 mg tablet 40 mg PO DAILY RF: 0 metoprolol succinate 25 mg tablet extended release 24 hr 75 mg PO DAILY RF: 0 aspirin 81 mg tablet,delayed release (DR/EC) 81 mg PO DAILY RF: 0 Tradjenta 5 mg tablet 5 mg PO DAILY RF: 0 lisinopril 5 mg tablet 5 mg PO DAILY RF: 0 atorvastatin 40 mg Tablet 40 mg PO QHS RF: 0 Lantus Solostar U-100 Insulin 100 unit/mL (3 mL) insulin pen 35 unit SUBCUT DAILY RF: 0 potassium chloride 20 mEq Tablet,Er Particles/Crystals 20 meq PO DAILY RF: 0 insulin aspart U-100 [Novolog Flexpen U-100 Insulin] 100 unit/mL (3 mL) insulin pen 20 unit SUBCUT BIDCM RF: 0 Referrals / Follow Up: Saurabh Hernandez Chi, MD [Primary Care Provider] - Within 2 Weeks Dhara Casas PA [PHYSICIAN WATER AEROBICS INSTRUCTOR] - Within 2 Weeks Disposition Disposition (needs filled in before D/C Order can be placed): Intermediate Facility
--- NOTE | 2021-10-23 16:00 | CASEMGMT ---
Social Work Note SW completed [facility] in [place]. KALANI faxed completed discharge paperwork to [facility] including transfer to extended care facility, signed medication list, any scripts, COVID test/tool, and [facility]. Original in SNF folder and copy on pt's chart. KALANI spoke with RN, pt to transport via wheelchair van. SW reviewed insurance, pt has [facility] MCR Dual and [facility] Community Plan. SW called [facility] ( ) to arrange transportation. Pt does have transportation benefits and transportation was arranged for wheelchair van with a wheelchair being provided and Physician's was requested for transportation. Confirmation number for trip [id number]. Once the trip is confirmed, [facility] will be called with an ETA. KALANI updated RN, material specialist and [employer] Weapons Equipment Operator. Transportation form completed and placed on SNF folder and copy on pt's chart. SW in to speak with pt. SW updated pt that he will discharge to [facility] and once transportation is confirmed, he will be notified. Pt states understanding, agreeable to discharge to [facility]. SW asked pt if this worker could call any family and pt denied. KALANI placed a call to Supriya at [facility] and updated her that pt will discharge to [facility] today and that transportation is TBD as transportation was arranged through [facility] and [facility] will need to be called with ETA. Supriya states to just call [facility] directly [phone] when transportation is confirmed. Plan: [facility] skilled today under convalescent stay. [facility] was called to arrange transportation due to pt's insurance and [facility] will be called with ETA for transportation. Maricel Randle ASE MASTER MECHANIC, CREDIT CONTROL ADMINISTRATOR
[2021-10-23 16:55] LABS: Bedside Glucose 201 mg/dL (74-106)
--- NOTE | 2021-10-23 17:57 | NURSING ---
report called to Kalma Michael at this time
--- NOTE | 2021-10-27 16:22 | CASEMGMT ---
Social Work Note SW received message from Phani with [facility] stating she received [facility] referral on pt and wanted update on pt's discharge. KALANI reviewed chart. Pt discharge to [facility] on Tuesday10/23/2021. KALANI placed a call back to Phani with [facility] and left message updating her on pt's discharge. Maricel Randle PAPER PATTERN INSPECTOR, SHEET ROCK HANGER
== END 2021-10-23 17:55 | disposition skilled nursing facility (03) | DRG 194 ==
LOC: ED 07:53 → MS3 08:12
PROVIDERS: Internal Medicine; Physician Assistant; Admitting Provider Family Medicine; Emergency Provider Emergency Medicine; PCP Family Medicine Geriatric Medicine; Visit Provider Student in an Organized Health Care Education/Training Program
DX: J18.9 Pneumonia, unspecified organism (principal); I50.42 Chronic combined systolic (congestive) and diastolic (congestive) heart failure; J44.0 Chronic obstructive pulmonary disease with (acute) lower respiratory infection; L97.919 Non-pressure chronic ulcer of unspecified part of right lower leg with unspecified severity; L97.929 Non-pressure chronic ulcer of unspecified part of left lower leg with unspecified severity; E11.42 Type 2 diabetes mellitus with diabetic polyneuropathy; D64.9 Anemia, unspecified; E11.51 Type 2 diabetes mellitus with diabetic peripheral angiopathy without gangrene; E11.622 Type 2 diabetes mellitus with other skin ulcer; I11.0 Hypertensive heart disease with heart failure; Z79.4 Long term (current) use of insulin; F17.200 Nicotine dependence, unspecified, uncomplicated; I25.5 Ischemic cardiomyopathy; I25.10 Atherosclerotic heart disease of native coronary artery without angina pectoris; E78.5 Hyperlipidemia, unspecified; K21.9 Gastro-esophageal reflux disease without esophagitis; I25.2 Old myocardial infarction; Z20.822 Contact with and (suspected) exposure to COVID-19; Z79.82 Long term (current) use of aspirin; Z95.2 Presence of prosthetic heart valve; Z79.899 Other long term (current) drug therapy; Z86.718 Personal history of other venous thrombosis and embolism
CPT/HCPCS: 36415; 36600; 70450; 71045; 80048; 80053; 81001; 82803; 82962; 83605; 83735; 83880; 84484; 85025; 85027; 85610; 85730; 87040; 87428; 93005; 94762; 97110; 97162; 97166; 97530; 97535; 99285; 99406; J7050; A4216; J0696

== ENCOUNTER 2021-11-02 13:34 | Outpatient (CLI) | payer MEDICARE, MEDICAID, SELFPAY ==
[2021-11-02 17:19] LABS: Absolute Lymphocyte Count 1.69 X10^3/uL (0.83-4.51); Absolute Neutrophil Count 4.1 X10^3/uL (2.0-7.7); Basophil# 0.02 X10^3/uL; Basophil% 0.3 % (0-1); Eosinophil# 0.12 X10^3/uL; Eosinophils% 1.9 % (0-5); Hematocrit 38.3 % (40-54); Hemoglobin 11.5 g/dL (13.0-16.5); Lymphocyte # 1.69 X10^3/ul (0.83-4.51); Lymphocyte % 26.2 % (19-41); Mean Corpuscular Hgb 25.6 pg (27.0-32.0); Mean Corpuscular Volume 85.1 fL (80-94); Mean Platelet Vol. 10.8 fl (6.2-12.0); Monocyte% 7.7 % (0-10); NRBC Flagged by Analyzer 0 % (0-5); Neutrophil % 63.4 % (47-70); Platelet Count 232 K/mm3 (150-450); RBC Distribution Width CV 16.3 % (11.6-14.6); RBC Distribution Width SD 50.7 fl (35.1-43.9); White Blood Count 6.5 K/mm3 (4.4-11.0)
[2021-11-02 17:39] LABS: ALB/GLOB Ratio 0.9 RATIO (0.9-2.4); AST(SGOT) 29 U/L (15-37); Alanine Aminotransfer ALT/SGPT 39 U/L (16-61); Albumin, Serum 3.2 g/dL (3.2-5.0); Alkaline Phosphatase 143 U/L (45-117); Anion Gap 4 (5-15); BUN 16 mg/dL (7-18); BUN/Creat Ratio 18.4 RATIO (10-20); Calcium,Total 8.4 mg/dL (8.5-10.1); Chloride 109 mmol/L (98-107); Creatinine, Serum 0.87 mg/dL (0.70-1.30); EST Glomerular Filtration Rate 93 mL/min (>60); Est Glom Filt Rate - Afr Amer 112 mL/min (>60); Globulin 3.4 g/dL (2.2-4.2); Glucose 160 mg/dL (74-106); Potassium 3.7 mmol/L (3.5-5.1); Protein, Total 6.6 g/dL (6.4-8.2); Sodium Level 140 mmol/L (136-145); Thyroid Stim Hormone (TSH) 1.49 uIU/mL (0.358-3.74)
[2021-11-02 17:42] LABS: Vitamin D,25 Hydroxy 21.7 ng/mL
== END 2021-11-02 23:59 | disposition home or self-care (01) ==
LOC: POLAB3 13:36
PROVIDERS: PCP Family Medicine Geriatric Medicine; Visit Provider Family Medicine Geriatric Medicine
DX: E11.9 Type 2 diabetes mellitus without complications (principal); E55.9 Vitamin D deficiency, unspecified; I10 Essential (primary) hypertension
CPT/HCPCS: 36415; 80053; 82306; 84443; 85025

== ENCOUNTER → 2022-02-01 | Outpatient (CLI) | payer MEDICARE, MEDICAID, SELFPAY ==
[2022-02-01 17:27] LABS: Absolute Neutrophil Count 2.4 X10^3/uL (2.0-7.7); Basophil# 0.05 X10^3/uL; Eosinophil# 0.15 X10^3/uL; Eosinophils% 2.9 % (0-5); Hematocrit 37.5 % (40-54); Hemoglobin 12.2 g/dL (13.0-16.5); Lymphocyte % 40.8 % (19-41); Mean Corp Hgb Conc 32.5 g/dL (32-36); Mean Corpuscular Volume 92.4 fL (80-94); Mean Platelet Vol. 10.1 fl (6.2-12.0); Monocyte# 0.45 X10^3/uL; Monocyte% 8.7 % (0-10); NRBC Flagged by Analyzer 0 % (0-5); Neutrophil # 2.38 X10^3/uL (2.7-7.7); Neutrophil % 46.2 % (47-70); Platelet Count 205 K/mm3 (150-450); RBC Distribution Width CV 18.3 % (11.6-14.6); RBC Distribution Width SD 61.9 fl (35.1-43.9); Red Blood Count 4.06 M/mm3 (4.6-6.2); White Blood Count 5.2 K/mm3 (4.4-11.0)
[2022-02-01 17:48] LABS: ALB/GLOB Ratio 1.1 RATIO (0.9-2.4); AST(SGOT) 16 U/L (15-37); Alanine Aminotransfer ALT/SGPT 22 U/L (16-61); Albumin, Serum 3.6 g/dL (3.2-5.0); Alkaline Phosphatase 109 U/L (45-117); Anion Gap 6 (5-15); BUN 12 mg/dL (7-18); BUN/Creat Ratio 15.9 RATIO (10-20); Chloride 108 mmol/L (98-107); Creatinine, Serum 0.75 mg/dL (0.70-1.30); EST Glomerular Filtration Rate 109 mL/min (>60); Est Glom Filt Rate - Afr Amer 132 mL/min (>60); Globulin 3.3 g/dL (2.2-4.2); Glucose 103 mg/dL (74-106); Potassium 4.5 mmol/L (3.5-5.1); Protein, Total 6.9 g/dL (6.4-8.2); Sodium Level 140 mmol/L (136-145); Thyroid Stim Hormone (TSH) 1.28 uIU/mL (0.358-3.74)
[2022-02-01 19:10] LABS: Vitamin D,25 Hydroxy 22.8 ng/mL
== END | disposition home or self-care (01) ==
PROVIDERS: PCP Family Medicine Geriatric Medicine; Visit Provider Family Medicine Geriatric Medicine
DX: E11.9 Type 2 diabetes mellitus without complications (principal); E55.9 Vitamin D deficiency, unspecified; F52.8 Other sexual dysfunction not due to a substance or known physiological condition; I10 Essential (primary) hypertension
CPT/HCPCS: 36415; 80053; 82306; 84403; 84443; 85025

== ENCOUNTER 2022-02-11 17:51 | Inpatient (IN) | payer MEDICARE, MEDICAID, SELFPAY ==
[2022-02-11 17:52] VITALS: BP 122/61; PULSE 86; RESP 20; TEMP 36.6; O2SAT 96; BMI 26.9
--- NOTE | 2022-02-11 17:58 | ED.RN ---
Pt had live bed bugs on him. pt was stripped down and washed in hazmat room prior to being put in rm 4. Pts belongings were triple bagged and housekeeping was made aware.
[2022-02-11] MEDS: Dextrose 50%-Water 25 GM/50 ML DISP.SYRIN IV (18:00)
--- NOTE | 2022-02-11 18:01 | EX.ED.DYSGE1 ---
HPI History of Present Illness Chief Complaint: Hypoglycemia Narrative Narrative: Patient presents with hypoglycemia. He states he felt his blood sugar dropping. He went to see the propagator laborer today at 2:30 PM but had to [employer] sandwiches prior to that. He states he took his medication as directed afterwards and took 20 units of NovoLog. This morning, although he had not eaten breakfast, he took his Lantus. He states he has been taking his medication as directed by his primary care providers RN who manages his diabetes. He went to his storage unit, and felt lightheaded. EMS was called and his blood sugar was low at 21. He was administered D10 and his blood sugar was elevated to 130 upon arrival to the emergency department. He denies any fevers or chills. No nausea or vomiting. He states all he had to eat today was the 2 [employer] sandwiches. He also describes an episode of low blood sugar yesterday. He states he has been taking his medication as prescribed. [facility] Medical History Atherosclerosis of coronary artery without angina pectoris Bleeding disorder Chronic combined systolic and diastolic CHF (congestive heart failure) Congestive heart failure COPD (chronic obstructive pulmonary disease) Diabetic foot infection DVT (deep venous thrombosis) Elevated troponin Gangrene of toe GERD (gastroesophageal reflux disease) History of non-ST elevation myocardial infarction (NSTEMI) (04/23/20) Hyperlipidemia Ischemic cardiomyopathy Kidney stones Lumbar spinal stenosis MSSA (methicillin susceptible Staphylococcus aureus) infection Nicotine dependence Non-healing surgical wound (05/01/20) Nonrheumatic aortic (valve) stenosis 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 Obstructive sleep apnea Osteomyelitis Peripheral vascular occlusive disease Pleural effusion, right Scabies infestation Secondary pulmonary arterial hypertension Smoker Sternal wound infection 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 foot with fat layer exposed Ulcer of right foot with necrosis of bone Home Medications metformin 500 mg tablet 500 mg PO BIDCM diabetes 05/31/20 [History Last Taken 09/21/21] atorvastatin 40 mg tablet 40 mg PO QHS cholesterol 11/12/20 [History Last Taken 09/20/21] insulin aspart U-100 100 unit/mL (3 mL) subcutaneous pen (Novolog Flexpen U-100 Insulin aspart) 20 unit subcut BIDCM diabetes 12/23/20 [History Last Taken Unknown] potassium chloride 20 mEq tablet,extended release(part/cryst) 20 meq PO DAILY suipplement 12/23/20 [History Last Taken 12/22/20] aspirin 81 mg tablet,delayed release 81 mg PO DAILY 10/08/21 [History Last Taken Unknown] furosemide 40 mg tablet (Lasix) 40 mg PO DAILY 10/08/21 [History Last Taken Unknown] insulin glargine 100 unit/mL (3 mL) subcutaneous pen (Lantus Solostar U-100 Insulin) 35 unit subcut DAILY DM 10/08/21 [History Last Taken Unknown] linagliptin 5 mg tablet (Tradjenta) 5 mg PO DAILY 10/08/21 [History Last Taken Unknown] lisinopril 5 mg tablet 5 mg PO DAILY 10/08/21 [History Last Taken Unknown] metoprolol succinate 25 mg tablet,extended release 24 hr 75 mg PO DAILY 10/08/21 [History Last Taken Unknown] warfarin 6 mg tablet (Jantoven) 6 mg PO DAILY #30 tabs 10/23/21 [Rx Last Taken Unknown] doxepin 50 mg capsule 50 mg PO DAILY 02/11/22 [History Last Taken Unknown] gabapentin 100 mg capsule 100 mg PO BID 02/11/22 [History Last Taken Unknown] Allergy/AdvReac Type Severity Reaction Status Date / Time No Known Allergies Allergy Verified 02/11/22 17:55 Family History Mother Diabetes Heart disease Father Diabetes Surgical History H/O coronary artery bypass surgery (05/01/20) History of angioplasty of peripheral vessel (01/02/10) History of femoropopliteal bypass (2008) History of incision and drainage (09/22/20) History of left heart catheterization (04/23/20) History of lumbar laminectomy History of mechanical aortic valve replacement Social History (Updated 02/11/22 @ 21:[address] Ale Hidalgo MD) household members: significant other Smoking Status: Light Smoker (<10/day) alcohol intake: never substance use type: does not use caffeine: No ROS ROS ED ROS Narrative Constitutional: No fever, no chills. HEENT: No sore throat. No neck pain. No loss of vision. No rhinorrhea. Cardiovascular: No chest pain. No palpitations. No pedal edema. Respiratory: No cough, no shortness of breath. Abdominal: No abdominal pain. No nausea. No vomiting. Genitourinary: No dysuria. No hematuria. Musculoskeletal: No myalgias. No arthralgias. Neurologic: No headaches. No dizziness. Positive lightheadedness. Bernard as if blood sugar was dropping. Skin: No rash. No change in color. Psychiatric: No depression. No anxiety. EXAM Physical Exam Narrative Exam Narrative: Afebrile. Vital signs noted. HEENT: Normocephalic. Atraumatic. PERRL, EOMI. Neck soft and supple. No point tenderness or step off. Cardiovascular: Regular rate and rhythm. No murmurs, rubs, or gallops appreciated. Respiratory: No tachypnea. Lungs clear to auscultation bilaterally. Gastrointestinal: Abdomen soft, nontender, with normoactive bowel sounds. No rebound or guarding. Neurological: Awake. Alert. Nonfocal, nonlateralizing. Skin: No rash. Normal color. No pallor. Musculoskeletal: No pedal edema. Full range of motion extremities. Const Vital Signs: 02/11/22 17:52 02/11/22 17:56 02/11/22 18:44 Temperature 97.9 F Temperature Source Temporal Pulse Rate 86 73 Respiratory Rate 20 H 23 H Respiratory Effort Normal Non-Labored Blood Pressure 122/61 H 115/59 L Blood Pressure Mean 81 77 Pulse Ox 96 95 Oxygen Delivery Method Room Air Room Air 02/11/22 20:00 02/11/22 20:35 Temperature 97.6 F L Temperature Source Temporal Pulse Rate 79 84 Respiratory Rate 21 H 16 Respiratory Effort Blood Pressure 132/101 H 140/79 H Blood Pressure Mean 111 99 Pulse Ox 96 97 Oxygen Delivery Method Room Air Room Air MDM MDM MDM Narrative Medical decision making narrative: Initial fingerstick glucose upon arrival to the ED was in the 30s. He will be given a p.o. challenge and an amp of D50. He was able to eat here in the emergency department. His INR was checked and is therapeutic at 2.8. Persistent blood glucose monitoring showed that he continued to drop into the 80s and 90s even though he was able to eat a meal here. He was started on D5 intravenously. I did check a CMP which shows potassium slightly low at 3.4 with a BUN of 11 and normal creatinine of 0.7, with a glucose only at 83. I do feel that with him admitting that he takes Humalog 20 units twice a day along with Lantus in the morning and he states he takes oral medications that he would require admission for his persistent hypoglycemia even after he had received D50, and D5 and was able to eat a meal. Patient was discussed with Dr. Hidalgo for admission. He is in stable condition. Lab Data Attestation: I reviewed the patient's lab results. Labs: Laboratory Results - last 24 hr 02/11/22 02/11/22 02/11/22 18:00 18:14 18:43 PT INR Sodium Potassium Chloride Carbon Dioxide Anion Gap BUN Creatinine Estim Creat Clear Calc Est GFR (MDRD) Af Amer Est GFR (MDRD) Non-Af BUN/Creatinine Ratio Glucose Calcium Phosphorus Magnesium Total Bilirubin AST ALT Alkaline Phosphatase Total Protein Albumin Globulin Albumin/Globulin Ratio POC Glucose 32 L* 227 H 137 H 02/11/22 02/11/22 02/11/22 19:13 19:20 19:20 PT 29.6 H INR 2.8 Sodium 143 Potassium 3.4 L Chloride 114 H Carbon Dioxide 25.0 Anion Gap 4 L BUN 11 Creatinine 0.71 Estim Creat Clear Calc 71.99 Est GFR (MDRD) Af Amer 141 Est GFR (MDRD) Non-Af 117 BUN/Creatinine Ratio 15.5 Glucose 83 Calcium 8.6 Phosphorus Magnesium Total Bilirubin 0.70 AST 20 ALT 18 Alkaline Phosphatase 95 Total Protein 6.7 Albumin 3.4 Globulin 3.3 Albumin/Globulin Ratio 1.0 POC Glucose 87 02/11/22 02/11/22 02/11/22 19:20 19:39 20:27 PT INR Sodium Potassium Chloride Carbon Dioxide Anion Gap BUN Creatinine Estim Creat Clear Calc Est GFR (MDRD) Af Amer Est GFR (MDRD) Non-Af BUN/Creatinine Ratio Glucose Calcium Phosphorus 3.6 Magnesium 2.1 Total Bilirubin AST ALT Alkaline Phosphatase Total Protein Albumin Globulin Albumin/Globulin Ratio POC Glucose 152 H 97 Discharge Plan Dx/Rx/DC Orders Clinical Impression: Hypoglycemia due to insulin, Near syncope, Generalized weakness, FDC current use of 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 Disposition Disposition: Acute Care Hospital [facility] Discharge Date/Time: 02/11/22 21:23
[2022-02-11 18:21] LABS: Bedside Glucose 32 mg/dL (74-106)
[2022-02-11 18:36] LABS: Bedside Glucose 227 mg/dL (74-106)
[2022-02-11 18:44] VITALS: BP 115/59; PULSE 73; RESP 23; O2SAT 95
[2022-02-11 19:01] LABS: Bedside Glucose 137 mg/dL (74-106)
[2022-02-11 19:35] LABS: Bedside Glucose 87 mg/dL (74-106)
[2022-02-11] MEDS: Dextrose 10%-Water 250 ML IV.SOLN. IV (19:36)
[2022-02-11 19:49] LABS: International Normalized Ratio 2.8; Prothrombin Time (Protime)PT. 29.6 SECONDS (11.7-14.9)
[2022-02-11 19:55] LABS: AST(SGOT) 20 U/L (15-37); Alanine Aminotransfer ALT/SGPT 18 U/L (16-61); Albumin, Serum 3.4 g/dL (3.2-5.0); Alkaline Phosphatase 95 U/L (45-117); Anion Gap 4 (5-15); BUN 11 mg/dL (7-18); BUN/Creat Ratio 15.5 RATIO (10-20); Calcium,Total 8.6 mg/dL (8.5-10.1); Chloride 114 mmol/L (98-107); Creatinine, Serum 0.71 mg/dL (0.70-1.30); EST Glomerular Filtration Rate 117 mL/min (>60); Est Glom Filt Rate - Afr Amer 141 mL/min (>60); Estimated Creatinine Clearance 71.99 ml/min; Globulin 3.3 g/dL (2.2-4.2); Glucose 83 mg/dL (74-106); Potassium 3.4 mmol/L (3.5-5.1); Protein, Total 6.7 g/dL (6.4-8.2); Sodium Level 143 mmol/L (136-145)
[2022-02-11 20:00] VITALS: BP 132/101; PULSE 79; RESP 21; O2SAT 96
[2022-02-11 20:00] LABS: Bedside Glucose 152 mg/dL (74-106)
[2022-02-11 20:35] VITALS: BP 140/79; PULSE 84; RESP 16; TEMP 36.4; O2SAT 97
[2022-02-11 20:45] LABS: Bedside Glucose 97 mg/dL (74-106)
--- NOTE | 2022-02-11 20:58 | PCM.HP.STD ---
HPI - General General Date of Admission: 02/11/22 Date of Service: 02/11/22 Chief Complaint: LH, dizziness, hypoglycemia. HPI Narrative The patient is a 71 y/o M w/ PMHx: Valvular heart disease, CAD, COPD, Chronic Systolic/Diastolic CHF/Ischemic Cardiomyopathy, HTN, HLD, GERD, Diabetes mellitus type II with PAD/PVOD/neuropathy, Tobacco use, Hx poor self care who presents to the [facility] ED on 02/11/22 with history of episode of hypoglycemia noting that he felt his blood sugar was dropping evaluation at his cardiology office at 2:30 PM with a Bologna sandwich prior to this and his medications following with self administration of 20 units of NovoLog and reports that he did however not eat breakfast in the morning but did take his Lantus with onset of lightheadedness prompting EMS call with blood sugar at that time noted be 21 with administration of D10 with improvement to 130 prompting ED evaluation. He reports that the only food he did eat on day of presentation was 2 bologna sandwiches. He states that the day prior he also had an episode of low blood sugar as well. Work-up in the ED included T97.9, heart rate 86, BP 122/61, respiratory rate 20, 95 to 96% room air, INR 2.8, PT 29.6, CMP with potassium 3.4, chloride 114, glucose 83 otherwise hepatic profile unremarkable, glucose trending in the ED noted to be initially 32 with repeat following 227--> 137--> 87 and most recently on CMP 152. In the ED patient administered dextrose amp x2 and eventually placed on dextrose drip. [facility] Medical History Atherosclerosis of coronary artery without angina pectoris Bleeding disorder Chronic combined systolic and diastolic CHF (congestive heart failure) Congestive heart failure COPD (chronic obstructive pulmonary disease) Diabetic foot infection DVT (deep venous thrombosis) Elevated troponin Gangrene of toe GERD (gastroesophageal reflux disease) History of non-ST elevation myocardial infarction (NSTEMI) (04/23/20) Hyperlipidemia Ischemic cardiomyopathy Kidney stones Lumbar spinal stenosis MSSA (methicillin susceptible Staphylococcus aureus) infection Nicotine dependence Non-healing surgical wound (05/01/20) Nonrheumatic aortic (valve) stenosis 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 Obstructive sleep apnea Osteomyelitis Peripheral vascular occlusive disease Pleural effusion, right Scabies infestation Secondary pulmonary arterial hypertension Smoker Sternal wound infection 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 foot with fat layer exposed Ulcer of right foot with necrosis of bone Home Medications metformin 500 mg tablet 500 mg PO BIDCM diabetes 05/31/20 [History Last Taken 09/21/21] atorvastatin 40 mg tablet 40 mg PO QHS cholesterol 11/12/20 [History Last Taken 09/20/21] insulin aspart U-100 100 unit/mL (3 mL) subcutaneous pen (Novolog Flexpen U-100 Insulin aspart) 20 unit subcut BIDCM diabetes 12/23/20 [History Last Taken Unknown] potassium chloride 20 mEq tablet,extended release(part/cryst) 20 meq PO DAILY suipplement 12/23/20 [History Last Taken 12/22/20] aspirin 81 mg tablet,delayed release 81 mg PO DAILY 10/08/21 [History Last Taken Unknown] furosemide 40 mg tablet (Lasix) 40 mg PO DAILY 10/08/21 [History Last Taken Unknown] insulin glargine 100 unit/mL (3 mL) subcutaneous pen (Lantus Solostar U-100 Insulin) 35 unit subcut DAILY DM 10/08/21 [History Last Taken Unknown] linagliptin 5 mg tablet (Tradjenta) 5 mg PO DAILY 10/08/21 [History Last Taken Unknown] lisinopril 5 mg tablet 5 mg PO DAILY 10/08/21 [History Last Taken Unknown] metoprolol succinate 25 mg tablet,extended release 24 hr 75 mg PO DAILY 10/08/21 [History Last Taken Unknown] warfarin 6 mg tablet (Jantoven) 6 mg PO DAILY #30 tabs 10/23/21 [Rx Last Taken Unknown] doxepin 50 mg capsule 50 mg PO DAILY 02/11/22 [History Last Taken Unknown] gabapentin 100 mg capsule 100 mg PO BID 02/11/22 [History Last Taken Unknown] Allergy/AdvReac Type Severity Reaction Status Date / Time No Known Allergies Allergy Verified 02/11/22 17:55 Family History Mother Diabetes Heart disease Father Diabetes Surgical History H/O coronary artery bypass surgery (05/01/20) History of angioplasty of peripheral vessel (01/02/10) History of femoropopliteal bypass (2008) History of incision and drainage (09/22/20) History of left heart catheterization (04/23/20) History of lumbar laminectomy History of mechanical aortic valve replacement Social History (Updated 02/11/22 @ 21:[address] Ale Hidalgo MD) household members: significant other Smoking Status: Light Smoker (<10/day) alcohol intake: never substance use type: does not use caffeine: No ROS ROS Narrative Admission Review of Systems: CONSTITUTIONAL: No weight loss, fever, chills, + weakness or fatigue. HEENT: + LH. Eyes: No visual loss, blurred vision, double vision or yellow sclerae. Ears, Nose, Throat: No hearing loss, sneezing, congestion, runny nose or sore throat. SKIN: No rash or itching, lesions, wounds. CARDIOVASCULAR: + LH. No chest pain, chest pressure or chest discomfort, palpitations, edema, orthopnea, syncopal events. RESPIRATORY: No shortness of breath, cough or sputum, wheezing, hemoptysis. GASTROINTESTINAL: No anorexia, nausea, vomiting or diarrhea, abdominal pain, melena, BRBPR. GENITOURINARY: No dysuria, frequency, urgency or retention. NEUROLOGICAL: + LH, dizziness. No headache, paralysis, ataxia, numbness or tingling in the extremities, focal weakness, change in bowel or bladder control, seizure. MUSCULOSKELETAL: + muscle, back pain, joint pain or stiffness. HEMATOLOGIC: + anemia, bleeding or bruising. LYMPHATICS: No enlarged nodes. No history of splenectomy. PSYCHIATRIC: No history of depression or anxiety. ENDOCRINOLOGIC: No reports of sweating, cold or heat intolerance. No polyuria or polydipsia. ALLERGIES: No history of asthma, hives, eczema or rhinitis. Vital Signs Vital Signs Vital Signs: 02/11/22 17:52 02/11/22 17:56 02/11/22 18:44 Temperature 97.9 F Temperature Source Temporal Pulse Rate 86 73 Respiratory Rate 20 H 23 H Respiratory Effort Normal Non-Labored Blood Pressure 122/61 H 115/59 L Blood Pressure Mean 81 77 Pulse Ox 96 95 Oxygen Delivery Method Room Air Room Air 02/11/22 20:00 Temperature Temperature Source Pulse Rate 79 Respiratory Rate 21 H Respiratory Effort Blood Pressure 132/101 H Blood Pressure Mean 111 Pulse Ox 96 Oxygen Delivery Method Room Air Weight Weight: 192 lb 10.944 oz Body Mass Index (BMI) 26.9 Physical Exam Narrative Physical examination: General: Awake, alert, oriented x 3 and cooperative, seated upright in the ED bed, fatigued, flat affect Skin: Normal color, normal turgor, no icterus, no cyanosis except various excoriations especially lower extremities. HEENT: AT/NC, EOMI, PERRLA, moderately dry MM, no carotid bruits or JVD noted. Lungs: Mildly diminished, greater bases, appropriate effort, no rales, ronchi or wheezing. Heart: Regular rate and rhythm; no gallop, rub audible. Abdomen: Soft, NTTP, ND, mildly hyperactive BS, no HSM. Extremities: No cyanosis, clubbing, or edema, evidence podiatric surgery with amputations, see skin. Neurological: Patient awake, alert, oriented as noted, cognitive function appears baseline intact; pupils equally reactive to light and accommodation, cranial nerves II-XII grossly normal, moving all 4 extremities, no focal deficits, strength mildly to moderately global decrease secondary to acute complaints, notes symptoms improved with blood sugar improvement. Psychiatric: Affect appears flat, fatigued, suspect underlying depression, denies any SI. Results Lab / Micro Data Result Diagrams: 02/11/22 19:20 Labs: Laboratory Results - last 24 hr 02/11/22 18:00: POC Glucose 32 L* 02/11/22 18:14: POC Glucose 227 H 02/11/22 18:43: POC Glucose 137 H 02/11/22 19:13: POC Glucose 87 02/11/22 19:20: PT 29.6 H, INR 2.8 02/11/22 19:20: Sodium 143, Potassium 3.4 L, Chloride 114 H, Carbon Dioxide 25.0, Anion Gap 4 L, BUN 11, Creatinine 0.71, Estim Creat Clear Calc 71.99, Est GFR (MDRD) Af Amer 141, Est GFR (MDRD) Non-Af 117, BUN/Creatinine Ratio 15.5, Glucose 83, Calcium 8.6, Total Bilirubin 0.70, AST 20, ALT 18, Alkaline Phosphatase 95, Total Protein 6.7, Albumin 3.4, Globulin 3.3, Albumin/Globulin Ratio 1.0 02/11/22 19:39: POC Glucose 152 H 02/11/22 20:27: POC Glucose 97 Assessment & Plan Assessment/Plan (1) Hypoglycemia due to insulin: PLAN: Plan The patient is a 71 y/o M w/ PMHx: Valvular heart disease, CAD, COPD, Chronic Systolic/Diastolic CHF/Ischemic Cardiomyopathy, HTN, HLD, GERD, Diabetes mellitus type II with PAD/PVOD/neuropathy, Tobacco use, Hx poor self care who presents to the [facility] ED on 02/11/22 with history of episode of hypoglycemia noting that he felt his blood sugar was dropping evaluation at his cardiology office at 2:30 PM with a Bologna sandwich prior to this and his medications following with self administration of 20 units of NovoLog and reports that he did however not eat breakfast in the morning but did take his Lantus with onset of lightheadedness prompting EMS call with blood sugar at that time noted be 21 with administration of D10 with improvement to 130 prompting ED evaluation. #1. Diabetes mellitus type II with hyperglycemia, symptomatic: Will hold oral home regimen, will hold short acting insulin as well as long-acting until improved, continue dextrose 10% drip with close accu checks with de-escalation as able off drip if BS > x at least 3 rounds, hemoglobin A1c requested, nutrition will be consulted for education and teaching especially given patient likely hypoglycemia episodes associated with poor appropriate oral intake with ongoing insulin self administration, will allow broaden diet until blood sugars better but then transition back to ADA diet. Mag, phos pending. #2. CAD: Status post CABG, will continue patient home Coumadin with INR trending, aspirin, statin, metoprolol, lisinopril home regimen #3. Chronic Systolic/Diastolic CHF/Ischemic Cardiomyopathy: Compensated, will continue patient home aspirin, Coumadin with INR trending, statin, metoprolol, lisinopril, Lasix home regimen. Judicious hydration if needed. #4. COPD: Not on any routine inhalers, as needed albuterol, encourage head of bed and I-S. #5. PAD/PVOD: Status post prior femoropopliteal bypass and peripheral PCI, will continue Coumadin with INR trending, aspirin therapy, statin as well as hypertensive regimen, given presentation as noted altering diabetic regimen. #6. Valvular heart disease: We will continue Coumadin with INR trending, 09/22/2021 echocardiogram with normal LV size, EF 30%, moderate global hypokinesis LV, stage III diastolic dysfunction, stable appearing bioprosthetic AV apparatus. #7. Hypertension: Continue home regimen including metoprolol, lisinopril, Lasix with hold parameters as needed, PRN hydralazine. #8. Hyperlipidemia: Continue home statin regimen. #9. Tobacco Abuse: Encouraged cessation, inpatient consultation per RT, NR if desired. #10. BEATRICE: CPAP nightly if amenable. #11. Suspected underlying depression: Patient with flat affect, denies any SI, case management will be consulted, could benefit from counseling and potentially medications pending resolution of acute presentation as noted above. #12. DVT prophylaxis: SCDs, continue Coumadin with INR trending. #13. CODE status: Patient AMANDA is his cousin and living will is currently in place. Discussed CODE status at length including difference between FULL code, DNR-CCA and DNR-CC status. Following discussions about the differences in these status, requested DNR-CCA, no intubation status. Advanced Care Planning Face to Face Time: 16 minutes. Charges/Coding Visit Charges Inpatient E&M: 40790 Init Hosp L3 Procedures Hospitalists Procedures: 30734 Advncd Care Plan 30 Min
[2022-02-11 21:24] VITALS: BMI 27.0
[2022-02-11 21:31] LABS: Bedside Glucose 154 mg/dL (74-106)
[2022-02-11 21:42] VITALS: BP 146/84; PULSE 83; RESP 18; TEMP 36.3; O2SAT 97
[2022-02-11 21:45] LABS: Magnesium 2.1 mg/dL (1.6-2.6); Phosphorus 3.6 mg/dL (2.5-4.9)
[2022-02-11 22:13] VITALS: PULSE 95
[2022-02-11] MEDS: Sodium Chloride 19.25 MEQ in Dextrose 10%-Water 250 ML 40 MEQ IV (22:25)
[2022-02-11] MEDS: Atorvastatin Calcium 40 MG Tablet PO (22:47)
[2022-02-11 23:40] LABS: Bedside Glucose 202 mg/dL (74-106)
[2022-02-11 23:46] LABS: Bedside Glucose 169 mg/dL (74-106)
[2022-02-12 01:26] LABS: Bedside Glucose 252 mg/dL (74-106)
[2022-02-12 02:06] LABS: Bacteria 0 SEEN /hpf (None Seen); Mucous, Urine 0 SEEN /hpf (<or=2+); Squamous Epithelial Cells - UA 0 SEEN /hpf (0-5); White Blood Cells 0 SEEN /hpf (0-5)
[2022-02-12 02:09] LABS: Color, Urine Yellow (Yellow); Glucose, Dipstick 1000 mg/dl (Normal); Ketone-Dipstick Negative (Negative); Leukocyte Esterase-Dipstick Negative /ul (Negative); Nitrite-Dipstick Negative (Negative); Occult Blood-Urine 10 /ul (Negative); Protein-Dipstick 30 mg/dl (Negative); Urine Bilirubin Dipstick Negative (Negative); Urine Clarity Clear (Clear); Urine Urobilinogen 1 mg/dl (Normal)
[2022-02-12 02:17] LABS: Red Blood Cells-Urine 0-5 SEEN /hpf (0-5)
--- NOTE | 2022-02-12 02:52 | CPS ---
Patient is not agreeable to wear a CPAP machine while he is here. CPAP QHS was ordered for the patient during his hospital stay. RT went to bedside to ask the patient if he used one at home and he said no. He also said that he does not want to wear ours while he is here either.
[2022-02-12 03:08] VITALS: PULSE 97
[2022-02-12] MEDS: Sodium Chloride 19.25 MEQ in Dextrose 10%-Water 250 ML 40 MEQ IV (04:37)
[2022-02-12 04:44] VITALS: BP 138/78; PULSE 98; RESP 16; TEMP 36.6; O2SAT 98
[2022-02-12 07:01] VITALS: PULSE 84
[2022-02-12 07:19] LABS: Absolute Lymphocyte Count 1.29 X10^3/uL (0.83-4.51); Absolute Neutrophil Count 2.6 X10^3/uL (2.0-7.7); Basophil# 0.03 X10^3/uL; Basophil% 0.7 % (0-1); Eosinophil# 0.17 X10^3/uL; Eosinophils% 3.8 % (0-5); Hematocrit 35.4 % (40-54); Hemoglobin 11.7 g/dL (13.0-16.5); Lymphocyte # 1.29 X10^3/ul (0.83-4.51); Lymphocyte % 28.5 % (19-41); Mean Corp Hgb Conc 33.1 g/dL (32-36); Mean Corpuscular Hgb 31.7 pg (27.0-32.0); Mean Corpuscular Volume 95.9 fL (80-94); Mean Platelet Vol. 10.2 fl (6.2-12.0); Monocyte# 0.46 X10^3/uL; Monocyte% 10.2 % (0-10); NRBC Flagged by Analyzer 0 % (0-5); Neutrophil # 2.57 X10^3/uL (2.7-7.7); Neutrophil % 56.6 % (47-70); Platelet Count 186 K/mm3 (150-450); RBC Distribution Width CV 17.5 % (11.6-14.6); RBC Distribution Width SD 62.2 fl (35.1-43.9); Red Blood Count 3.69 M/mm3 (4.6-6.2); White Blood Count 4.5 K/mm3 (4.4-11.0)
[2022-02-12 07:48] LABS: AST(SGOT) 18 U/L (15-37); Alanine Aminotransfer ALT/SGPT 17 U/L (16-61); Albumin, Serum 3.1 g/dL (3.2-5.0); Alkaline Phosphatase 106 U/L (45-117); Anion Gap 4 (5-15); BUN 10 mg/dL (7-18); BUN/Creat Ratio 16.4 RATIO (10-20); Calcium,Total 8.4 mg/dL (8.5-10.1); Chloride 111 mmol/L (98-107); Creatinine, Serum 0.61 mg/dL (0.70-1.30); EST Glomerular Filtration Rate 139 mL/min (>60); Est Glom Filt Rate - Afr Amer 168 mL/min (>60); Estimated Creatinine Clearance 74.25 ml/min; Globulin 3.2 g/dL (2.2-4.2); Glucose 194 mg/dL (74-106); Potassium 3.7 mmol/L (3.5-5.1); Protein, Total 6.3 g/dL (6.4-8.2); Sodium Level 139 mmol/L (136-145)
[2022-02-12 07:52] LABS: Hemoglobin A1c 7.7 % (3.8-5.6)
--- NOTE | 2022-02-12 07:52 | PCM.PN.HOSP ---
Objective Data Objective Data Vital Signs: Vital Signs Temp Pulse Resp BP Pulse Ox O2 Del Method 97.8 F 84 16 138/78 H 98 Room Air 02/12/22 04:44 02/12/22 07:01 02/12/22 04:44 02/12/22 04:44 02/12/22 04:44 02/12/22 04:44 Oxygen Delivery Method Room Air Weight: 193 lb 9.054 oz Body Mass Index (BMI) 27.0 Intake & Output: Intake and Output for Last 24 Hours 02/10/22 02/11/22 02/12/22 23:59 23:59 23:59 Intake Total 248 / 248 Output Total 200 / 200 Balance 48 / 48 Lab / Micro Data Result Diagrams: 02/12/22 06:15 02/12/22 06:15 Labs: Laboratory Results - last 24 hr 02/11/22 18:00: POC Glucose 32 L* 02/11/22 18:14: POC Glucose 227 H 02/11/22 18:43: POC Glucose 137 H 02/11/22 19:13: POC Glucose 87 02/11/22 19:20: PT 29.6 H, INR 2.8 02/11/22 19:20: Sodium 143, Potassium 3.4 L, Chloride 114 H, Carbon Dioxide 25.0, Anion Gap 4 L, BUN 11, Creatinine 0.71, Estim Creat Clear Calc 71.99, Est GFR (MDRD) Af Amer 141, Est GFR (MDRD) Non-Af 117, BUN/Creatinine Ratio 15.5, Glucose 83, Calcium 8.6, Total Bilirubin 0.70, AST 20, ALT 18, Alkaline Phosphatase 95, Total Protein 6.7, Albumin 3.4, Globulin 3.3, Albumin/Globulin Ratio 1.0 02/11/22 19:20: Phosphorus 3.6, Magnesium 2.1 02/11/22 19:39: POC Glucose 152 H 02/11/22 20:27: POC Glucose 97 02/11/22 21:10: POC Glucose 154 H 02/11/22 22:02: POC Glucose 169 H 02/11/22 22:46: POC Glucose 202 H 02/12/22 01:03: POC Glucose 252 H 02/12/22 01:10: Urine Color Yellow, Urine Clarity Clear, Urine pH 6.0, Ur Specific [place] 1.020, Urine Protein 30 H, Urine Glucose (UA) 1000 H, Urine Ketones Negative, Urine Occult Blood 10 H, Urine Nitrite Negative, Urine Bilirubin Negative, Urine Urobilinogen 1 H, Ur Leukocyte Esterase Negative, Urine RBC 0-5 SEEN, Urine WBC 0 SEEN, Ur Squamous Epith Cells 0 SEEN, Urine Bacteria 0 SEEN, Urine Mucus 0 SEEN 02/12/22 06:15: WBC 4.5, RBC 3.69 L, Hgb 11.7 L, Hct 35.4 L, MCV 95.9 H, MCH 31.7, MCHC 33.1, RDW Std Deviation 62.2 H, RDW Coeff of Estrada 17.5 H, Plt Count 186, MPV 10.2, Immature Gran % (Auto) 0.200, Neut % (Auto) 56.6, Lymph % (Auto) 28.5, [place] % (Auto) 10.2 H, Eos % (Auto) 3.8, Baso % (Auto) 0.7, Absolute Neuts (auto) 2.6, Absolute Lymphs (auto) 1.29, Nucleated RBC % 0 02/12/22 06:15: Sodium 139, Potassium 3.7, Chloride 111 H, Carbon Dioxide 24.0, Anion Gap 4 L, BUN 10, Creatinine 0.61 L, Estim Creat Clear Calc 74.25, Est GFR (MDRD) Af Amer 168, Est GFR (MDRD) Non-Af 139, BUN/Creatinine Ratio 16.4, Glucose 194 H, Calcium 8.4 L, Total Bilirubin 0.60, AST 18, ALT 17, Alkaline Phosphatase 106, Total Protein 6.3 L, Albumin 3.1 L, Globulin 3.2, Albumin/Globulin Ratio 1.0 02/12/22 06:15: Hemoglobin A1c 7.7 H Assessment & Plan Assessment/Plan (1) Hypoglycemia due to insulin: PLAN: Plan Patient 71-year-old male admitted with hold if glucose less than 130 mg/dl, glucose 21 mg/dL which increased to 130 mg after administration of D10. #1. Diabetes mellitus type II with hypoglycemia, symptomatic: Monitor Accu-Cheks, every hour until glucose is more than 110 consecutively for 2 times. Then Accu-Chek before meals and at bedtime. Hold supplemental insulin. #2. CAD: Status post CABG, will continue patient home Coumadin with INR trending, aspirin, statin, metoprolol, lisinopril home regimen #3. Chronic Systolic/Diastolic CHF/Ischemic Cardiomyopathy: Compensated, will continue patient home aspirin, Coumadin with INR trending, statin, metoprolol, lisinopril, Lasix home regimen. Judicious hydration if needed. #4. COPD: Not on any routine inhalers, as needed albuterol, encourage head of bed and I-S. #5. PAD/PVOD: Status post prior femoropopliteal bypass and peripheral PCI, will continue Coumadin with INR trending, aspirin therapy, statin as well as hypertensive regimen, given presentation as noted altering diabetic regimen. #6. Valvular heart disease: We will continue Coumadin with INR trending, 09/22/2021 echocardiogram with normal LV size, EF 30%, moderate global hypokinesis LV, stage III diastolic dysfunction, stable appearing bioprosthetic AV apparatus. #7. Hypertension: Continue home regimen including metoprolol, lisinopril, Lasix with hold parameters as needed, PRN hydralazine. #8. Hyperlipidemia: Continue home statin regimen. #9. Tobacco Abuse: Encouraged cessation, inpatient consultation per RT, NR if desired. #10. BEATRICE: CPAP nightly if amenable. #11. Suspected underlying depression: Patient with flat affect, denies any SI, case management will be consulted, could benefit from counseling and potentially medications pending resolution of acute presentation as noted above. #12. DVT prophylaxis: SCDs, continue Coumadin with INR trending. #13. CODE status: Patient AMANDA is his cousin and living will is currently in place. Discussed CODE status at length including difference between FULL code, DNR-CCA and DNR-CC status. Following discussions about the differences in these status, requested DNR-CCA, no intubation status. Advanced Care Planning Face to Face Time: 16 minutes.
[2022-02-12 08:05] VITALS: O2SAT 95
[2022-02-12 08:09] LABS: International Normalized Ratio 3.3; Prothrombin Time (Protime)PT. 33.2 SECONDS (11.7-14.9)
[2022-02-12 08:45] LABS: Bedside Glucose 220 mg/dL (74-106)
[2022-02-12 09:16] LABS: Bedside Glucose 182 mg/dL (74-106)
[2022-02-12 09:31] VITALS: BP 138/68; PULSE 92; RESP 16; TEMP 36.7; O2SAT 97
[2022-02-12] MEDS: DOXEPIN HCL 50 MG CAPSULE PO (09:31)
[2022-02-12] MEDS: Potassium Chloride Oral Tablet 20 MEQ PO (09:31)
[2022-02-12] MEDS: Aspirin E.C. 81 MG Tablet PO (09:31)
[2022-02-12 09:32] VITALS: PULSE 92
[2022-02-12] MEDS: Furosemide 40 MG Tablet PO (09:32)
[2022-02-12] MEDS: Metoprolol(XL)Succ 25 MG Tablet 75 MG PO (09:32)
[2022-02-12] MEDS: Lisinopril 5 MG Tablet PO (09:32)
[2022-02-12] MEDS: Gabapentin 100 MG Capsule PO (09:33)
--- NOTE | 2022-02-12 10:40 | CASEMGMT ---
HERMINIA STANFORD Face to Face with patient for initial transition planning/care coordination assessment. RN CM introduced self and role at [facility]. Patient lying in bed, alert and oriented. Patient willing to participate in assessment and is able to answer all questions appropriately. Care providers, pharmacy, and demographics verified. Patient wishes to discharge home, denies need for home health at this time. Patient states he has no further needs or concerns at this time. CM to follow for discharge planning needs that may arise. PCP: David Specialists: Guy, pain; Praveen, road traffic controller Preferred Pharmacy: [facility] Insurance: [facility] dual Prescription Benefit: yes Living Will/HPOA: yes, cousin Mariam Bai LNOK: cousin Living Arrangements: Patient states he lives with cousin in a 2 story duplex. Patient states he is normally able to ambulate stairs at home and is independent Transportation: self, cousin DME/HHC: Patient states he has shower chair, cane, glucometer with supplies and insulin with needles. Patient is has previously been to [place], [place], and [facility] in the past. Denies previous [facility] Disposition Plan: Patient to discharge home with family support and follow-up plans in place. Maricel HENDERSON, RN, CM
--- NOTE | 2022-02-12 11:00 | DCINST_ITS ---
Discharge Instructions Diet Discharge Diet: 1800 Calorie Control Diet Activity Weight Bearing Status: Weight bearing as tolerated Dressing / Incision Call your doctor if you observe: Fever of 101 or Higher, Coldness, Increased P ain, Numbness or Tingling, Change in Color, Inability to urinate, Inability to have a bowel movement, Shortness of breath, Dizziness, Fainting spells, Swelling in the ankles, Chest pain, Prolonged hiccupping, Increased palpitations (irregular heartbeat), Calf discomfort and Uncontrolled pain Follow Up Care Test Results: Test results from this visit will be discussed in further detail at your follow- up appointment, if applicable. Discharge Plan Admission Admit Date/Time: 02/11/22 21:00 Primary Reason for Your Visit: Diabetes mellitus type 2 complicated with hypoglycemia Attending Provider: Kartik Avila Primary Care Provider: Saurabh Hernandez Chi Consulting Providers: Ale Hidalgo Instructions Additional Instructions / Restrictions: Patient educated about signs and symptoms of hypoglycemia. Advised sugar tablet the pocket. Insulin dose decreased. Glucose check before meals and at bedtime. Discharge Orders/Prescriptions Prescriptions: Continued metformin 500 mg tablet 500 mg PO BIDCM furosemide [Lasix] 40 mg tablet 40 mg PO DAILY metoprolol succinate 25 mg tablet extended release 24 hr 75 mg PO DAILY aspirin 81 mg tablet,delayed release (DR/EC) 81 mg PO DAILY Tradjenta 5 mg tablet 5 mg PO DAILY lisinopril 5 mg tablet 5 mg PO DAILY gabapentin 100 mg capsule 100 mg PO BID Label Comments: TAKE 2 CAPSULES BY MOUTH EVERY 12 HOURS doxepin 50 mg capsule 50 mg PO DAILY atorvastatin 40 mg Tablet 40 mg PO QHS potassium chloride 20 mEq Tablet,Er Particles/Crystals 20 meq PO DAILY warfarin [Jantoven] 6 mg Tablet 6 mg PO DAILY Qty: 30 1RF Rx Instructions: Hold if INR more than 3.5 Changed insulin aspart U-100 [Novolog Flexpen U-100 Insulin] 100 unit/mL (3 mL) insulin pen 10 unit SUBCUT BIDCM Qty: 3 0RF Rx Instructions: Hold if glucose less than 130 mg/dl insulin glargine [Lantus Solostar U-100 Insulin] 100 unit/mL (3 mL) insulin pen 25 unit SUBCUT DAILY Qty: 3 0RF Rx Instructions: Hold if glucose less than 130 mg/dl Referrals / Follow Up: Saurabh Hernandez Chi, MD [Primary Care Provider] - Within 1 Week Disposition Disposition (needs filled in before D/C Order can be placed): Home, Self Care
[2022-02-12] MEDS: Insulin Lispro 100 UNIT/ML INSULN.PEN SC (11:42)
[2022-02-12 12:05] LABS: Bedside Glucose 229 mg/dL (74-106)
--- NOTE | 2022-02-12 12:05 | DS.PCM_ITS ---
Providers Date of Admission: 02/11/22 Date of Discharge: 02/12/22 Primary Care Physician: Dr. Saurabh Hernandez MD Reason For Visit: HYPOGLYCEMIA Diagnosis Discharge Diagnosis (1) Hypoglycemia due to insulin: Status: Acute Code(s): E16.0 - Drug-induced hypoglycemia without coma; T38.3X5A - Adverse effect of insulin and oral hypoglycemic [antidiabetic] drugs, initial encounter Plan Patient 71-year-old male admitted with hold if glucose less than 130 mg/dl, glucose 21 mg/dL which increased to 130 mg after administration of D10. #1. Diabetes mellitus type II with hypoglycemia, symptomatic: Monitor Accu- Cheks, every hour until glucose is more than 110 consecutively for 2 times. Then Accu-Chek before meals and at bedtime. Hold supplemental insulin. #2. CAD: Status post CABG, will continue patient home Coumadin with INR trending, aspirin, statin, metoprolol, lisinopril home regimen #3. Chronic Systolic/Diastolic CHF/Ischemic Cardiomyopathy: Compensated, will continue patient home aspirin, Coumadin with INR trending, statin, metoprolol, lisinopril, Lasix home regimen. Judicious hydration if needed. #4. COPD: Not on any routine inhalers, as needed albuterol, encourage head of bed and I-S. #5. PAD/PVOD: Status post prior femoropopliteal bypass and peripheral PCI, will continue Coumadin with INR trending, aspirin therapy, statin as well as hypertensive regimen, given presentation as noted altering diabetic regimen. #6. Valvular heart disease: We will continue Coumadin with INR trending, 09/22/2021 echocardiogram with normal LV size, EF 30%, moderate global hypokinesis LV, stage III diastolic dysfunction, stable appearing bioprosthetic AV apparatus. #7. Hypertension: Continue home regimen including metoprolol, lisinopril, Lasix with hold parameters as needed, PRN hydralazine. #8. Hyperlipidemia: Continue home statin regimen. #9. Tobacco Abuse: Encouraged cessation, inpatient consultation per RT, NR if desired. #10. BEATRICE: CPAP nightly if amenable. #11. Suspected underlying depression: Patient with flat affect, denies any SI, case management will be consulted, could benefit from counseling and potentially medications pending resolution of acute presentation as noted above. #12. DVT prophylaxis: SCDs, continue Coumadin with INR trending. #13. CODE status: Patient AMANDA is his cousin and living will is currently in place. Discussed CODE status at length including difference between FULL code, DNR-CCA and DNR-CC status. Following discussions about the differences in these status, requested DNR-CCA, no intubation status. Advanced Care Planning Face to Face Time: 16 minutes. Medications at Discharge Home Medications metformin 500 mg tablet 500 mg PO BIDCM diabetes 05/31/20 atorvastatin 40 mg tablet 40 mg PO QHS cholesterol 11/12/20 potassium chloride 20 mEq tablet,extended release(part/cryst) 20 meq PO DAILY suipplement 12/23/20 aspirin 81 mg tablet,delayed release 81 mg PO DAILY 10/08/21 furosemide 40 mg tablet (Lasix) 40 mg PO DAILY 10/08/21 linagliptin 5 mg tablet (Tradjenta) 5 mg PO DAILY 10/08/21 lisinopril 5 mg tablet 5 mg PO DAILY 10/08/21 metoprolol succinate 25 mg tablet,extended release 24 hr 75 mg PO DAILY 10/08/21 doxepin 50 mg capsule 50 mg PO DAILY 02/11/22 gabapentin 100 mg capsule 100 mg PO BID 02/11/22 insulin aspart U-100 100 unit/mL (3 mL) subcutaneous pen (Novolog Flexpen U-100 Insulin aspart) 10 unit (0.1 mL) subcut BIDCM diabetes #3 mL 02/12/22 insulin glargine 100 unit/mL (3 mL) subcutaneous pen (Lantus Solostar U-100 Insulin) 25 unit (0.25 mL) subcut DAILY DM #3 mL 02/12/22 warfarin 6 mg tablet (Jantoven) 6 mg PO DAILY #30 tabs 02/12/22 Hospital Course Summary of Care Provided Hospital Course: This is a 71-year-old question gentleman with multiple comorbidities admitted with episode of hypoglycemia. 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 Patient glucose was checked and was 21 and prompt improvement to 130 mg/dL after D10. Patient was further admitted in PCU. His further diagnosis, assessment, management as mentioned below 1. DM type II complicated with symptomatic hypoglycemia: Patient admitted and glucose. Blood sugar subsequently got improved and most recently above 200. Started on Accu-Chek before meals and at bedtime and cover with low-dose Humalog insulin. A1c 7.7. Patient Humalog insulin and Lantus insulin decreased menti oned in discharge mention reconciliation. Advised follow-up with PCP in 1 week. 2. Coronary artery status post CABG, chronic combined systolic diastolic heart failure, mechanical aortic valve replacement: Continue aspirin statin metoprolol lisinopril and warfarin. Patient INR is 3.3. Advised to monitor INR in 2 days and hold if INR more than 3.5. 3. peripheral arterial disease status post prior femoropopliteal bypass and PCI: Continue cardiac medications as mentioned above 4. Other comorbidities include hypertension, COPD, anxiety and depression: Discharge meds reconciliation done. Discharge medication reconciliation done. Discharge follow-up instructions completed. Discharge process discussed with the patient and all questions were answered to patient's satisfaction. Total time spent, exact 35 minutes on discharge meds reconciliation, examination, coordination of care with nurses and ancillary staff, review of imaging and blood test and discussion with the patient on follow-up instructions. Physical Exam Narrative Physical exam General: Alert, Oriented x3, Cooperative HEENT: Atraumatic, PERRLA, EOMI, Normocephalic Oral: No Gingival or Mucosal Lesions/ Ulcerations Neck: Supple, No JVD, Negative Carotid Bruits Lungs: Air entry diminished in bilateral lung bases. No crepitation/rhonchi Cardiovascular: Regular rate, Regular Rhythm, S1-S2 normal. Mechanical adventitious sound of valve. Abdomen: Bowel Sounds Present, Soft, Non Tender, Non-Distended : No renal angle tenderness. No suprapubic tenderness. Extremities: No edema, Capillary Refill Less than 3 Seconds Skin: No rashes, No breakdown Musculoskeletal: No Tenderness to Palpation of Joints or Extremities Neurological: Cranial nerves II-XII grossly intact, DTR 2+/4 Psych/Mental Status: Normal Affect, Appropriate. Weight / BMI Weight Weight: 193 lb 9.054 oz Body Mass Index (BMI) 27.0 ABG / Lab / Microbiology Data Result Diagrams: 02/12/22 06:15 02/12/22 06:15 Laboratory: Laboratory Results - last 24 hr 02/11/22 18:00: POC Glucose 32 L* 02/11/22 18:14: POC Glucose 227 H 02/11/22 18:43: POC Glucose 137 H 02/11/22 19:13: POC Glucose 87 02/11/22 19:20: PT 29.6 H, INR 2.8 02/11/22 19:20: Sodium 143, Potassium 3.4 L, Chloride 114 H, Carbon Dioxide 25.0, Anion Gap 4 L, BUN 11, Creatinine 0.71, Estim Creat Clear Calc 71.99, Est GFR (MDRD) Af Amer 141, Est GFR (MDRD) Non-Af 117, BUN/Creatinine Ratio 15.5, Glucose 83, Calcium 8.6, Total Bilirubin 0.70, AST 20, ALT 18, Alkaline Phosphatase 95, Total Protein 6.7, Albumin 3.4, Globulin 3.3, Albumin/Globulin Ratio 1.0 02/11/22 19:20: Phosphorus 3.6, Magnesium 2.1 02/11/22 19:39: POC Glucose 152 H 02/11/22 20:27: POC Glucose 97 02/11/22 21:10: POC Glucose 154 H 02/11/22 22:02: POC Glucose 169 H 02/11/22 22:46: POC Glucose 202 H 02/12/22 01:03: POC Glucose 252 H 02/12/22 01:10: Urine Color Yellow, Urine Clarity Clear, Urine pH 6.0, Ur Specific [place] 1.020, Urine Protein 30 H, Urine Glucose (UA) 1000 H, Urine Ketones Negative, Urine Occult Blood 10 H, Urine Nitrite Negative, Urine Bilirubin Negative, Urine Urobilinogen 1 H, Ur Leukocyte Esterase Negative, Urine RBC 0-5 SEEN, Urine WBC 0 SEEN, Ur Squamous Epith Cells 0 SEEN, Urine Bacteria 0 SEEN, Urine Mucus 0 SEEN 02/12/22 04:35: POC Glucose 182 H 02/12/22 06:15: WBC 4.5, RBC 3.69 L, Hgb 11.7 L, Hct 35.4 L, MCV 95.9 H, MCH 31.7, MCHC 33.1, RDW Std Deviation 62.2 H, RDW Coeff of Estrada 17.5 H, Plt Count 186, MPV 10.2, Immature Gran % (Auto) 0.200, Neut % (Auto) 56.6, Lymph % (Auto) 28.5, [place] % (Auto) 10.2 H, Eos % (Auto) 3.8, Baso % (Auto) 0.7, Absolute Neuts (auto) 2.6, Absolute Lymphs (auto) 1.29, Nucleated RBC % 0 02/12/22 06:15: PT 33.2 H, INR 3.3 02/12/22 06:15: Sodium 139, Potassium 3.7, Chloride 111 H, Carbon Dioxide 24.0, Anion Gap 4 L, BUN 10, Creatinine 0.61 L, Estim Creat Clear Calc 74.25, Est GFR (MDRD) Af Amer 168, Est GFR (MDRD) Non-Af 139, BUN/Creatinine Ratio 16.4, Glucose 194 H, Calcium 8.4 L, Total Bilirubin 0.60, AST 18, ALT 17, Alkaline Phosphatase 106, Total Protein 6.3 L, Albumin 3.1 L, Globulin 3.2, Albumin/Globulin Ratio 1.0 02/12/22 06:15: Hemoglobin A1c 7.7 H 02/12/22 08:25: POC Glucose 220 H D/C Instructions Discharge Diet: 1800 Calorie Control Diet Weight Bearing Status: Weight bearing as tolerated Call your doctor if you observe: Fever of 101 or Higher, Coldness, Increased Pain, Numbness or Tingling, Change in Color, Inability to urinate, Inability to have a bowel movement, Shortness of breath, Dizziness, Fainting spells, Swelling in the ankles, Chest pain, Prolonged hiccupping, Increased palpitations (irregular heartbeat), Calf discomfort and Uncontrolled pain Meaningful Use Info Meaningful Use Diagnoses (Choose all that apply): None applicable Discharge Plan Admission Admit Date/Time: 02/11/22 21:00 Primary Reason for Your Visit: Diabetes mellitus type 2 complicated with hypoglycemia Attending Provider: Kartik Avila Primary Care Provider: Saurabh Hernandez Chi Consulting Providers: Ale Hidalgo Instructions Additional Instructions / Restrictions: Patient educated about signs and symptoms of hypoglycemia. Advised sugar tablet the pocket. Insulin dose decreased. Glucose check before meals and at bedtime. Discharge Orders/Prescriptions Prescriptions: Continued metformin 500 mg tablet 500 mg PO BIDCM furosemide [Lasix] 40 mg tablet 40 mg PO DAILY metoprolol succinate 25 mg tablet extended release 24 hr 75 mg PO DAILY aspirin 81 mg tablet,delayed release (DR/EC) 81 mg PO DAILY Tradjenta 5 mg tablet 5 mg PO DAILY lisinopril 5 mg tablet 5 mg PO DAILY gabapentin 100 mg capsule 100 mg PO BID Label Comments: TAKE 2 CAPSULES BY MOUTH EVERY 12 HOURS doxepin 50 mg capsule 50 mg PO DAILY atorvastatin 40 mg Tablet 40 mg PO QHS potassium chloride 20 mEq Tablet,Er Particles/Crystals 20 meq PO DAILY warfarin [Jantoven] 6 mg Tablet 6 mg PO DAILY Qty: 30 1RF Rx Instructions: Hold if INR more than 3.5 Changed insulin aspart U-100 [Novolog Flexpen U-100 Insulin] 100 unit/mL (3 mL) insulin pen 10 unit SUBCUT BIDCM Qty: 3 0RF Rx Instructions: Hold if glucose less than 130 mg/dl insulin glargine [Lantus Solostar U-100 Insulin] 100 unit/mL (3 mL) insulin pen 25 unit SUBCUT DAILY Qty: 3 0RF Rx Instructions: Hold if glucose less than 130 mg/dl Referrals / Follow Up: Saurabh Hernandez Chi, MD [Primary Care Provider] - Within 1 Week Disposition Disposition (needs filled in before D/C Order can be placed): Home, Self Care Charges/Coding Addendum Addendum: Patient was admitted as inpatient but was discharged because of sooner recovery than expected at time of admission. Visit Charges Inpatient E&M: 75962 Disch Hosp
== END 2022-02-12 13:37 | disposition home or self-care (01) | DRG 638 ==
LOC: ED 20:37 → PCU 22:08
PROVIDERS: Admitting Provider Family Medicine; Emergency Provider Emergency Medicine; PCP Family Medicine Geriatric Medicine; Visit Provider Internal Medicine
DX: E11.649 Type 2 diabetes mellitus with hypoglycemia without coma (principal); I50.42 Chronic combined systolic (congestive) and diastolic (congestive) heart failure; E11.51 Type 2 diabetes mellitus with diabetic peripheral angiopathy without gangrene; I11.0 Hypertensive heart disease with heart failure; E11.42 Type 2 diabetes mellitus with diabetic polyneuropathy; Z79.4 Long term (current) use of insulin; J44.9 Chronic obstructive pulmonary disease, unspecified; E78.5 Hyperlipidemia, unspecified; I25.10 Atherosclerotic heart disease of native coronary artery without angina pectoris; G47.33 Obstructive sleep apnea (adult) (pediatric); F41.9 Anxiety disorder, unspecified; I25.5 Ischemic cardiomyopathy; F17.200 Nicotine dependence, unspecified, uncomplicated; I25.2 Old myocardial infarction; T38.3X5A Adverse effect of insulin and oral hypoglycemic [antidiabetic] drugs, initial encounter; F32.A Depression, unspecified; Z66 Do not resuscitate; Z95.1 Presence of aortocoronary bypass graft; Z95.2 Presence of prosthetic heart valve; Z79.01 Long term (current) use of 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s; Z79.82 Long term (current) use of aspirin; Z79.84 Long term (current) use of oral hypoglycemic drugs; Z79.899 Other long term (current) drug therapy
CPT/HCPCS: 36415; 80053; 81001; 82962; 83036; 83735; 84100; 85025; 85610; 97802; 99251; 99285; J7030; A4216; G0463

== ENCOUNTER 2022-03-18 13:39 | Emergency (ER) | payer MEDICARE, MEDICAID, SELFPAY ==
[2022-03-18 13:40] VITALS: BP 145/91; PULSE 90; RESP 18; TEMP 36.8; O2SAT 98; BMI 27.8
--- NOTE | 2022-03-18 14:09 | EDS_ITS ---
HPI History of Present Illness Chief Complaint: Back Informant: patient Narrative Narrative: Worsening right lower back pain rating down his leg to his calf for the past 3 days. History of sciatica. He is followed by pain management Dr. Tovar. He states he gets back injections every 3 months he is due for 1 in the next 2 weeks. He states he has been doing increasing activities with lifting. No loss of bowel or bladder control. He is on Vicodin half tab twice a day for pain control. He took 1 full dose this morning. Increased difficulty walking today due to pain. Denies any allergies. History of ischemic cardiomyopathy with coronary disease. History of DVT on warfarin. He also is on gabapentin 3 times a day. He does not ambulate with any assistance. 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 Lumbar spinal stenosis MSSA (methicillin susceptible Staphylococcus aureus) infection Nicotine dependence Non-healing surgical wound (05/01/20) Nonrheumatic aortic (valve) stenosis 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 Obstructive sleep apnea Osteomyelitis Peripheral vascular occlusive disease Pleural effusion, right Scabies infestation Secondary pulmonary arterial hypertension Smoker Sternal wound infection 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 foot with fat layer exposed Ulcer of right foot with necrosis of bone Home Medications metformin 500 mg tablet 500 mg PO BIDCM diabetes 05/31/20 [History Last Taken 09/21/21] atorvastatin 40 mg tablet 40 mg PO QHS cholesterol 11/12/20 [History Last Taken 09/20/21] potassium chloride 20 mEq tablet,extended release(part/cryst) 20 meq PO DAILY suipplement 12/23/20 [History Last Taken 12/22/20] aspirin 81 mg tablet,delayed release 81 mg PO DAILY 10/08/21 [History Last Taken Unknown] furosemide 40 mg tablet (Lasix) 40 mg PO DAILY 10/08/21 [History Last Taken Unknown] linagliptin 5 mg tablet (Tradjenta) 5 mg PO DAILY 10/08/21 [History Last Taken U nknown] lisinopril 5 mg tablet 5 mg PO DAILY 10/08/21 [History Last Taken Unknown] metoprolol succinate 25 mg tablet,extended release 24 hr 75 mg PO DAILY 10/08/21 [History Last Taken Unknown] doxepin 50 mg capsule 50 mg PO DAILY 02/11/22 [History Last Taken Unknown] gabapentin 100 mg capsule 100 mg PO BID 02/11/22 [History Last Taken Unknown] insulin aspart U-100 100 unit/mL (3 mL) subcutaneous pen (Novolog Flexpen U-100 Insulin aspart) 10 unit (0.1 mL) subcut BIDCM diabetes #3 mL 02/12/22 [Rx Last Taken Unknown] insulin glargine 100 unit/mL (3 mL) subcutaneous pen (Lantus Solostar U-100 Insu radha) 25 unit (0.25 mL) subcut DAILY DM #3 mL 02/12/22 [Rx Last Taken Unknown] warfarin 6 mg tablet (Jantoven) 6 mg PO DAILY #30 tabs 02/12/22 [Rx Last Taken Unknown] diazepam 5 mg tablet 5 mg PO Q8 PRN Muscle Spasm #12 tabs 03/18/22 [Rx Last Taken Unknown] Allergy/AdvReac Type Severity Reaction Status Date / Time No Known Allergies Allergy Verified 02/11/22 17:55 Family History Mother Diabetes Heart disease Father Diabetes Surgical History H/O coronary artery bypass surgery (05/01/20) History of angioplasty of peripheral vessel (01/02/10) History of femoropopliteal bypass (2008) History of incision and drainage (09/22/20) History of left heart catheterization (04/23/20) History of lumbar laminectomy History of mechanical aortic valve replacement Social History household members: significant other Smoking Status: Current every day smoker tobacco type: cigarettes alcohol intake: never substance use type: does not use caffeine: No ROS ROS ED Constitutional Constitutional ED: Denies chills, fever(s) or sweats Eyes Eyes: Denies change in vision ENT ENT ED: Denies dysphagia or sore throat Cardiovascular Cardiovascular: Denies chest pain, leg edema, palpitations or racing heartbeat Respiratory/Chest Respiratory/Chest: Denies cough, dyspnea or dyspnea on exertion Gastrointestinal Gastrointestinal: Denies abdominal pain, diarrhea, nausea or vomiting Genitourinary Genitourinary ED: Denies dysuria, hematuria or urinary frequency Musculoskeletal Musculoskeletal: Reports back pain; Denies extremity pain or neck pain Integumentary Denies rash or wounds Neurologic Neurologic: Denies headache(s), paresthesias or weakness EXAM Physical Exam Const Vital Signs: 03/18/22 13:40 03/18/22 15:24 03/18/22 17:14 Temperature 98.2 F Temperature Source Oral Pulse Rate 90 98 84 Respiratory Rate 18 18 20 H Blood Pressure 145/91 H 158/130 H 147/82 H Blood Pressure Mean 109 139 Pulse Ox 98 99 99 Oxygen Delivery Method Room Air Positive well nourished and well developed General Appearance ED: well developed and NAD HEENT Reports moist mucous membranes normocephalic and atraumatic Eyes PERRL, EOMs intact bilaterally and conjunctivae normal General Eye ED: Yes normal appearance of both eyes Neck no lymphadenopathy and supple General: Negative for tenderness Chest Wall Chest: Negative for tenderness Resp normal respiratory effort and normal air movement Effort and Inspection: symmetric chest movement; Negative for respiratory distress Cardio regular rate, regular rhythm and no murmurs Peripheral Pulses: pulses 2+ throughout GI normal to inspection, nondistended, normoactive bowel sounds and non-tender GI Narrative: Large ventral hernia reducible and nontender. Palpation: Negative for guarding or rebound tenderness present Back/Spine no CVA tenderness and no thoracic nor lumbar tenderness Back/Spine Narrative: Right paralumbar tenderness straight leg test negative. 1+ patellar reflex bilaterally. Extremity normal to inspection Extremity Narrative: Petechial lesions of bilateral lower legs knee down. No purpura. Nontender. General Extremety ED: Negative for edema or tenderness General Extremity: Negative for edema Neuro oriented x3 and no sensory deficits noted Sensorium / Orientation: awake and alert Skin no wounds Skin Narrative: see above MDM MDM MDM Narrative Medical decision making narrative: Patient presents with recurrent sciatica symptoms on the right side. No cauda equina symptoms. He had petechiae in his lower extremities history of thrombocytopenia. Labs were checked platelet 167. Hemoglobin 10.7. INR supratherapeutic at 4.7 with him being on warfarin. He is treated with morphine x2 Norflex. NSAIDs avoided with his warfarin therapy. He is able to ambulate with no assistance. He will hold his warfarin for the next 2 days he will discuss with his PCP to restart and recheck as an outpatient. He is followed by pain management on Vicodin. He will call them tomorrow thinking increase his dosing as he is only on half a tab twice a day. He was significantly seen sooner for his back injections. All questions were answered. Lab Data Attestation: I reviewed the patient's lab results. Labs: Laboratory Results - last 24 hr 03/18/22 03/18/22 03/18/22 14:15 14:15 14:15 WBC 5.5 RBC 3.48 L Hgb 10.7 L Hct 33.7 L MCV 96.8 H MCH 30.7 MCHC 31.8 L RDW Std Deviation 45.7 H RDW Coeff of Estrada 13.1 Plt Count 167 MPV 10.7 Immature Gran % (Auto) 0.400 Neut % (Auto) 77.3 H Lymph % (Auto) 14.8 L [place] % (Auto) 6.8 Eos % (Auto) 0.5 Baso % (Auto) 0.2 Absolute Neuts (auto) 4.2 Absolute Lymphs (auto) 0.81 L Nucleated RBC % 0 PT 43.8 H INR 4.7 H* Sodium 143 Potassium 4.4 Chloride 112 H Carbon Dioxide 24.0 Anion Gap 7 BUN 9 Creatinine 0.67 L Estim Creat Clear Calc 74.25 Est GFR (MDRD) Af Amer 150 Est GFR (MDRD) Non-Af 124 BUN/Creatinine Ratio 13.4 Glucose 176 H Calcium 8.6 Discharge Plan Triage Chief Complaint: Back ED Provider: Jad Treviño Dx/Rx/DC Orders Clinical Impression: Sciatica of right side, Back pain, Supratherapeutic INR Instructions: ED Sciatica Prescriptions: New diazepam [diazepam] 5 mg tablet 5 mg PO Q8 PRN (Reason: Muscle Spasm) Qty: 12 0RF No Action metformin 500 mg tablet 500 mg PO BIDCM furosemide [Lasix] 40 mg tablet 40 mg PO DAILY metoprolol succinate 25 mg tablet extended release 24 hr 75 mg PO DAILY aspirin 81 mg tablet,delayed release (DR/EC) 81 mg PO DAILY Tradjenta 5 mg tablet 5 mg PO DAILY lisinopril 5 mg tablet 5 mg PO DAILY gabapentin 100 mg capsule 100 mg PO BID Label Comments: TAKE 2 CAPSULES BY MOUTH EVERY 12 HOURS doxepin 50 mg capsule 50 mg PO DAILY atorvastatin 40 mg Tablet 40 mg PO QHS potassium chloride 20 mEq Tablet,Er Particles/Crystals 20 meq PO DAILY warfarin [Jantoven] 6 mg Tablet 6 mg PO DAILY Qty: 30 1RF Rx Instructions: Hold if INR more than 3.5 insulin aspart U-100 [Novolog Flexpen U-100 Insulin] 100 unit/mL (3 mL) insulin pen 10 unit SUBCUT BIDCM Qty: 3 0RF Rx Instructions: Hold if glucose less than 130 mg/dl insulin glargine [Lantus Solostar U-100 Insulin] 100 unit/mL (3 mL) insulin pen 25 unit SUBCUT DAILY Qty: 3 0RF Rx Instructions: Hold if glucose less than 130 mg/dl Primary Care Provider: Saurabh Hernandez Chi Referrals: Tayla Tovar MD [Med Staff - Active Staff] - 2 Days Saurabh Hernandez Chi, MD [Primary Care Provider] - Activity Restrictions/Additional Instructions: INR 4.7 today. Hold for the next 2 days. Call your PCP office for restart and check as an outpatient. Call Dr. Tovar for earlier follow-up. Discussed with office increase your Vicodin for pain control. Disposition Disposition: Home, Self Care Discharge Date/Time: 03/18/22 17:15
[2022-03-18] MEDS: Ondansetron 4 MG/2 ML Vial IV (14:20)
[2022-03-18] MEDS: Orphenadrine 60 MG/2 ML Ampul IV (14:21)
[2022-03-18] MEDS: Morphine 4 MG/ML Syringe IV ×2 (14:21→15:24)
[2022-03-18 14:27] LABS: Absolute Lymphocyte Count 0.81 X10^3/uL (0.83-4.51); Absolute Neutrophil Count 4.2 X10^3/uL (2.0-7.7); Basophil# 0.01 X10^3/uL; Basophil% 0.2 % (0-1); Eosinophil# 0.03 X10^3/uL; Eosinophils% 0.5 % (0-5); Hematocrit 33.7 % (40-54); Hemoglobin 10.7 g/dL (13.0-16.5); Lymphocyte # 0.81 X10^3/ul (0.83-4.51); Lymphocyte % 14.8 % (19-41); Mean Corp Hgb Conc 31.8 g/dL (32-36); Mean Corpuscular Hgb 30.7 pg (27.0-32.0); Mean Corpuscular Volume 96.8 fL (80-94); Mean Platelet Vol. 10.7 fl (6.2-12.0); Monocyte# 0.37 X10^3/uL; Monocyte% 6.8 % (0-10); NRBC Flagged by Analyzer 0 % (0-5); Neutrophil # 4.24 X10^3/uL (2.7-7.7); Neutrophil % 77.3 % (47-70); Platelet Count 167 K/mm3 (150-450); RBC Distribution Width CV 13.1 % (11.6-14.6); RBC Distribution Width SD 45.7 fl (35.1-43.9); Red Blood Count 3.48 M/mm3 (4.6-6.2); White Blood Count 5.5 K/mm3 (4.4-11.0)
[2022-03-18 14:33] LABS: Prothrombin Time (Protime)PT. 43.8 SECONDS (11.7-14.9)
[2022-03-18 14:35] LABS: International Normalized Ratio 4.7
[2022-03-18 14:36] LABS: Anion Gap 7 (5-15); BUN 9 mg/dL (7-18); BUN/Creat Ratio 13.4 RATIO (10-20); Calcium,Total 8.6 mg/dL (8.5-10.1); Chloride 112 mmol/L (98-107); Creatinine, Serum 0.67 mg/dL (0.70-1.30); EST Glomerular Filtration Rate 124 mL/min (>60); Est Glom Filt Rate - Afr Amer 150 mL/min (>60); Estimated Creatinine Clearance 74.25 ml/min; Glucose 176 mg/dL (74-106); Potassium 4.4 mmol/L (3.5-5.1); Sodium Level 143 mmol/L (136-145)
[2022-03-18 15:24] VITALS: BP 158/130; PULSE 98; RESP 18; O2SAT 99
[2022-03-18 17:14] VITALS: BP 147/82; PULSE 84; RESP 20; O2SAT 99
== END 2022-03-18 17:15 | disposition home or self-care (01) ==
PROVIDERS: Emergency Provider Emergency Medicine; PCP Family Medicine Geriatric Medicine; Visit Provider Emergency Medicine
DX: M54.31 Sciatica, right side (principal); M54.50 Low back pain, unspecified; R79.1 Abnormal coagulation profile; I25.10 Atherosclerotic heart disease of native coronary artery without angina pectoris; I25.2 Old myocardial infarction; G47.33 Obstructive sleep apnea (adult) (pediatric); Z86.718 Personal history of other venous thrombosis and embolism; Z95.1 Presence of aortocoronary bypass graft
CPT/HCPCS: 80048; 85025; 85610; 96374; 96375; 96376; 99285; A4216; J2405

== ENCOUNTER 2022-03-23 11:08 | Emergency (ER) | payer MEDICARE, MEDICAID, SELFPAY ==
[2022-03-23 11:18] VITALS: BP 142/93; PULSE 85; RESP 18; TEMP 36.7; O2SAT 96; BMI 25.1
--- NOTE | 2022-03-23 11:23 | EDS_ITS ---
HPI History of Present Illness Chief Complaint: Back Detail of Chief Complaint: Back pain with radiation to the lateral aspect of the right thigh and left Informant: patient Onset/Context/Timing Onset: Days and Weeks Context: - (Gradually is gotten worse) Chronic pain exacerbated by: Standing, movement per patient Injury: - (No history of trauma) Timing: Continuous Quality: Sharp Location: Lumbar, Buttock and Right Leg Current Severity: Mild Maximum Severity: Severe Worsened by: improves with Movement, Bending, Lifting and - (Standing) Relieved by: Nothing Associated Symptoms Associated Symptoms: Radiation to Right Leg (Pain is not in a radicular pattern. It crosses many dermatomes.); Negative for Numbness, Tingling, Fever, Abdominal Pain, Dysuria, Unable to Ambulate, Unable to Transfer, Urinary Retention, Urinary Incontinence, Constipation or Fecal Incontinence Narrative Narrative: Patient is an elderly male who lives with his cousin who is presently hospitalized. He has an appointment to see Dr. Winter this evening. Of note he was seen here several days ago and his INR was elevated at 4.8. He also has history of thrombocytopenia. Patient denies symptoms consistent with claudication due to peripheral arterial disease or neurogenic claudication. Patient denies bowel or bladder dysfunction. Patient denies saddle paresthesia or anesthesia. 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 Patient had no recent dental procedure. He denies fever or chills. He denies rash. 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 Lumbar spinal stenosis MSSA (methicillin susceptible Staphylococcus aureus) infection Nicotine dependence Non-healing surgical wound (05/01/20) Nonrheumatic aortic (valve) stenosis 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 Obstructive sleep apnea Osteomyelitis Peripheral vascular occlusive disease Pleural effusion, right Scabies infestation Secondary pulmonary arterial hypertension Smoker Sternal wound infection 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 foot with fat layer exposed Ulcer of right foot with necrosis of bone Home Medications metformin 500 mg tablet 500 mg PO BIDCM diabetes 05/31/20 [History Last Taken 09/21/21] atorvastatin 40 mg tablet 40 mg PO QHS cholesterol 11/12/20 [History Last Taken 09/20/21] potassium chloride 20 mEq tablet,extended release(part/cryst) 20 meq PO DAILY suipplement 12/23/20 [History Last Taken 12/22/20] aspirin 81 mg tablet,delayed release 81 mg PO DAILY 10/08/21 [History Last Taken Unknown] furosemide 40 mg tablet (Lasix) 40 mg PO DAILY 10/08/21 [History Last Taken Unknown] linagliptin 5 mg tablet (Tradjenta) 5 mg PO DAILY 10/08/21 [History Last Taken Unknown] lisinopril 5 mg tablet 5 mg PO DAILY 10/08/21 [History Last Taken Unknown] metoprolol succinate 25 mg tablet,extended release 24 hr 75 mg PO DAILY 10/08/21 [History Last Taken Unknown] doxepin 50 mg capsule 50 mg PO DAILY 02/11/22 [History Last Taken Unknown] gabapentin 100 mg capsule 100 mg PO BID 02/11/22 [History Last Taken Unknown] insulin aspart U-100 100 unit/mL (3 mL) subcutaneous pen (Novolog Flexpen U-100 Insulin aspart) 10 unit (0.1 mL) subcut BIDCM diabetes #3 mL 02/12/22 [Rx Last Taken Unknown] insulin glargine 100 unit/mL (3 mL) subcutaneous pen (Lantus Solostar U-100 Insulin) 25 unit (0.25 mL) subcut DAILY DM #3 mL 02/12/22 [Rx Last Taken Unknown] warfarin 6 mg tablet (Jantoven) 6 mg PO DAILY #30 tabs 02/12/22 [Rx Last Taken Unknown] diazepam 5 mg tablet 5 mg PO Q8 PRN Muscle Spasm #12 tabs 03/18/22 [Rx Last Taken Unknown] Allergy/AdvReac Type Severity Reaction Status Date / Time No Known Allergies Allergy Verified 03/23/22 11:17 Family History Mother Diabetes Heart disease Father Diabetes Surgical History H/O coronary artery bypass surgery (05/01/20) History of angioplasty of peripheral vessel (01/02/10) History of femoropopliteal bypass (2008) History of incision and drainage (09/22/20) History of left heart catheterization (04/23/20) History of lumbar laminectomy History of mechanical aortic valve replacement Social History household members: significant other Smoking Status: Current every day smoker tobacco type: cigarettes alcohol intake: never substance use type: does not use caffeine: No ROS ROS ED Constitutional Constitutional ED: Denies chills, fever(s), subjective, sweats or weight loss Eyes Eyes: Denies blurry vision or change in vision ENT ENT ED: Denies ear pain, rhinorrhea or sore throat Cardiovascular Cardiovascular: Denies chest pain or palpitations Respiratory/Chest Respiratory/Chest: Denies dyspnea or dyspnea on exertion Gastrointestinal Gastrointestinal: Denies abdominal pain, diarrhea, nausea or vomiting Genitourinary Genitourinary ED: Denies dysuria, hematuria or urinary frequency Musculoskeletal Musculoskeletal: Reports back pain; Denies arthralgias, myalgias or neck pain Integumentary Denies abscess, Abrasions or rash Neurologic Neurologic: Denies paresthesias or weakness Psychiatric Psychiatric: Reports depression and other Details: Patient is agitated. He is mean towards hospital staff. ; Denies anxiety, suicidal ideation or suicidal thoughts Endocrine Endocrinology: Denies cold intolerance or heat intolerance Hematologic/Lymphatic Hematologic/Lymphatic: Denies easy bleeding or easy bruising EXAM Physical Exam Const Vital Signs: 03/23/22 11:18 Temperature 98.0 F Temperature Source Temporal Pulse Rate 85 Respiratory Rate 18 Blood Pressure 142/93 H Blood Pressure Mean 109 Pulse Ox 96 Oxygen Delivery Method Room Air Positive well nourished, well developed and unkempt Constitutional Narrative: Patient became upset when I was asking questions and asked him to turn on his back. Of note he turned rather easily onto his back with no hesitation gr imacing or hesitation. General Appearance ED: unkempt, well developed and NAD; Negative for pallor HEENT Reports moist mucous membranes HEENT Narrative: Poor dentition. Head is atraumatic normocephalic. Ears normal. Nares patent. Eyes PERRL and EOMs intact bilaterally General Eye ED: Negative for pale conjunctiva or scleral icterus Neck no lymphadenopathy, supple and no JVD Resp normal respiratory effort and clear to auscultation bilaterally Cardio regular rate, regular rhythm, S1 normal heart sound, S2 normal heart sound and no murmurs GI normal to inspection, nondistended, normoactive bowel sounds, soft to palpation, non-tender, non-distended and no masses GI Narrative: There is no palp pulsatile mass or abdominal bruit. Rectal Exam: visual inspection normal Narrative: Uncircumcised male penis. Testes centered bilaterally. No evidence of inguinal hernia or inguinal lymphadenopathy. Back/Spine Back/Spine Narrative: Patient has pain out of proportion especially since she is able to turn and twist and attempt to stand without hesitation or evidence of pain. When asked to stand he sits down promptly. EHL is intact on the left. Unable to assess on the right since his toe was amputated. He is able to plantar and dorsi flex his foot against resistance. Straight leg test is negative right and left. Patella and ankle reflex are 1-2+ and symmetric. Sensation is normal over L3, L4, L5 and S1 dermatome. Patient has normal gluteal sensation. General Back: Negative for CVA tenderness Cervical Spine: Negative for cervical spine tenderness Thoracic Spine / Upper Back: Negative for paraspinal muscle tenderness Extremity Extremity Narrative: Patient is amputation of the right great toe. He has stigmata of peripheral arterial disease. DP pulses not palpable. There is good cap refill and his toes and feet are warm. Neuro oriented x3 and no sensory deficits noted Sensorium / Orientation: alert Motor Exam: strength 5/5 throughout Deep Tendon Reflexes: Rt Patellar (L4): 2+, Lt Patellar (L4): 2+, Rt Ankle (S1): 2+ and Lt Ankle (S1): 2+ Deep Tendon Reflexes Back: Rt Patellar (L4): 2+, Lt Patellar (L4): 2+, Rt Ankle (S1): 2+ and Lt Ankle (S1): 2+ Plantar Reflex: Downgoing: left (There is no clonus or Babinski sign.) Psych Psych Narrative: Cantankerous mean rude gentleman. Appearance: unkempt Skin Skin Narrative: Are superficial scratches noted lower lower extremity exam and infection. He does have feces noted on his legs. General Skin Exam: Negative for jaundice or pallor MDM MDM MDM Narrative Medical decision making narrative: Patient in my professional opinion does not have sciatica. He has pain that crosses multiple dermatomes and a negative straight leg raise. I am not doubting the fact that patient has pain. It may be due to spinal stenosis however there is no acute findings. Patient was informed goal is to make him feel comfortable so he can see Dr. Winter and determine what can be done to minimize his chronic pain. I was informed by patient's nurse that he has an appointment at [address] Winter. Plan is to discharge so he can make his appointment. As previously documented in my opinion patient does not have sciatica. He does have history of spinal stenosis and in all likelihood degenerative disc disease is the cause of his pain. There is no concern for cauda equina. There is no concern for acute herniated disc causing his symptoms. His exam other than his reluctance and refusing to stand is the only portion of the exam that is limited. Discharge Plan Triage Chief Complaint: Back ED Provider: Wilman Carrillo Dx/Rx/DC Orders Clinical Impression: Chronic right-sided low back pain, Hx of spinal stenosis Instructions: ED Chronic Pain, ED Back and Neck Pain, General Prescriptions: No Action metformin 500 mg tablet 500 mg PO BIDCM furosemide [Lasix] 40 mg tablet 40 mg PO DAILY metoprolol succinate 25 mg tablet extended release 24 hr 75 mg PO DAILY aspirin 81 mg tablet,delayed release (DR/EC) 81 mg PO DAILY Tradjenta 5 mg tablet 5 mg PO DAILY lisinopril 5 mg tablet 5 mg PO DAILY gabapentin 100 mg capsule 100 mg PO BID Label Comments: TAKE 2 CAPSULES BY MOUTH EVERY 12 HOURS doxepin 50 mg capsule 50 mg PO DAILY atorvastatin 40 mg Tablet 40 mg PO QHS potassium chloride 20 mEq Tablet,Er Particles/Crystals 20 meq PO DAILY warfarin [Jantoven] 6 mg Tablet 6 mg PO DAILY Qty: 30 1RF Rx Instructions: Hold if INR more than 3.5 insulin aspart U-100 [Novolog Flexpen U-100 Insulin] 100 unit/mL (3 mL) insulin pen 10 unit SUBCUT BIDCM Qty: 3 0RF Rx Instructions: Hold if glucose less than 130 mg/dl insulin glargine [Lantus Solostar U-100 Insulin] 100 unit/mL (3 mL) insulin pen 25 unit SUBCUT DAILY Qty: 3 0RF Rx Instructions: Hold if glucose less than 130 mg/dl diazepam [diazepam] 5 mg tablet 5 mg PO Q8 PRN (Reason: Muscle Spasm) Qty: 12 0RF Primary Care Provider: Saurabh Heranndez Chi Referrals: Saurabh Hernandez Chi, MD [Primary Care Provider] - As Needed Disposition Disposition: Home, Self Care
[2022-03-23] MEDS: Morphine 4 MG/ML Syringe IV (11:38)
[2022-03-23] MEDS: Ondansetron 4 MG/2 ML Vial IV (11:38)
== END 2022-03-23 12:24 | disposition home or self-care (01) ==
PROVIDERS: Emergency Provider Emergency Medicine; PCP Family Medicine Geriatric Medicine; Visit Provider Emergency Medicine
DX: M54.50 Low back pain, unspecified (principal); G89.29 Other chronic pain; I25.10 Atherosclerotic heart disease of native coronary artery without angina pectoris; I25.2 Old myocardial infarction; F17.210 Nicotine dependence, cigarettes, uncomplicated; Z86.718 Personal history of other venous thrombosis and embolism; Z95.1 Presence of aortocoronary bypass graft
CPT/HCPCS: 96374; 96375; 99285; A4216; J2405

== ENCOUNTER 2022-03-27 18:37 | Emergency (ER) | payer MEDICARE, MEDICAID, SELFPAY ==
[2022-03-27 18:38] VITALS: BP 155/81; PULSE 105; RESP 20; TEMP 36.4; O2SAT 98; BMI 30.1
--- NOTE | 2022-03-27 19:19 | EDS_ITS ---
HPI History of Present Illness Chief Complaint: Back Informant: patient and EMS Narrative Narrative: Presents by EMS from home recurrent right-sided back pain rating down his right leg to his ankle for last 2 days. History of chronic back pain. Had surgery about 6 years ago. He is followed by pain management Dr. Tovar. Note was seen by myself 9 days ago was treated for his pain placed on Valium. He called his pain management doctor. He was seen 4 days ago in the ED but had office visit for procedure that same day was discharge there. He states he did have injections performed which helped for 2 days then reoccurred. Typically the last 2 to 3 months. He cannot recall his surgeon. History of spinal stenosis. He currently is on Vicodin half tab twice a day. He is on gabapentin for which he takes 600 mg 3 times a day. He takes warfarin history of DVT. He lives alone. Wheezing during evaluation does have history of COPD and tobacco history. 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 use of 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 Lumbar spinal stenosis MSSA (methicillin susceptible Staphylococcus aureus) infection Nicotine dependence Non-healing surgical wound (05/01/20) Nonrheumatic aortic (valve) stenosis 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 Obstructive sleep apnea Osteomyelitis Peripheral vascular occlusive disease Pleural effusion, right Scabies infestation Secondary pulmonary arterial hypertension Smoker Sternal wound infection 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 foot with fat layer exposed Ulcer of right foot with necrosis of bone Home Medications metformin 500 mg tablet 500 mg PO BIDCM diabetes 05/31/20 [History Last Taken 09/21/21] atorvastatin 40 mg tablet 40 mg PO QHS cholesterol 11/12/20 [History Last Taken 09/20/21] potassium chloride 20 mEq tablet,extended release(part/cryst) 20 meq PO DAILY suipplement 12/23/20 [History Last Taken 12/22/20] aspirin 81 mg tablet,delayed release 81 mg PO DAILY 10/08/21 [History Last Taken Unknown] furosemide 40 mg tablet (Lasix) 40 mg PO DAILY 10/08/21 [History Last Taken Unknown] linagliptin 5 mg tablet (Tradjenta) 5 mg PO DAILY 10/08/21 [History Last Taken Unknown] lisinopril 5 mg tablet 5 mg PO DAILY 10/08/21 [History Last Taken Unknown] metoprolol succinate 25 mg tablet,extended release 24 hr 75 mg PO DAILY 10/08/21 [History Last Taken Unknown] doxepin 50 mg capsule 50 mg PO DAILY 02/11/22 [History Last Taken Unknown] gabapentin 100 mg capsule 100 mg PO BID 02/11/22 [History Last Taken Unknown] insulin aspart U-100 100 unit/mL (3 mL) subcutaneous pen (Novolog Flexpen U-100 Insulin aspart) 10 unit (0.1 mL) subcut BIDCM diabetes #3 mL 02/12/22 [Rx Last Taken Unknown] insulin glargine 100 unit/mL (3 mL) subcutaneous pen (Lantus Solostar U-100 Insulin) 25 unit (0.25 mL) subcut DAILY DM #3 mL 02/12/22 [Rx Last Taken Unknown] warfarin 6 mg tablet (Jantoven) 6 mg PO DAILY #30 tabs 02/12/22 [Rx Last Taken Unknown] diazepam 5 mg tablet 5 mg PO Q8 PRN Muscle Spasm #12 tabs 03/18/22 [Rx Last Taken Unknown] Allergy/AdvReac Type Severity Reaction Status Date / Time No Known Allergies Allergy Verified 03/27/22 18:51 Family History Mother Diabetes Heart disease Father Diabetes Surgical History H/O coronary artery bypass surgery (05/01/20) History of angioplasty of peripheral vessel (01/02/10) History of femoropopliteal bypass (2008) History of incision and drainage (09/22/20) History of left heart catheterization (04/23/20) History of lumbar laminectomy History of mechanical aortic valve replacement Social History household members: significant other Smoking Status: Current every day smoker tobacco type: cigarettes alcohol intake: never substance use type: does not use caffeine: No ROS ROS ED Constitutional Constitutional ED: Denies chills, fever(s) or sweats Eyes Eyes: Denies change in vision ENT ENT ED: Denies dysphagia or sore throat Cardiovascular Cardiovascular: Denies chest pain, leg edema, palpitations or racing heartbeat Respiratory/Chest Respiratory/Chest: Denies cough, dyspnea or dyspnea on exertion Gastrointestinal Gastrointestinal: Denies abdominal pain, diarrhea, nausea or vomiting Genitourinary Genitourinary ED: Denies dysuria, hematuria or urinary frequency Musculoskeletal Musculoskeletal: Reports back pain; Denies extremity pain or neck pain Integumentary Denies rash or wounds Neurologic Neurologic: Denies headache(s), paresthesias or weakness EXAM Physical Exam Const Vital Signs: 03/27/22 18:38 03/27/22 19:54 03/27/22 21:49 Temperature 97.6 F L Temperature Source Temporal Pulse Rate 105 H 112 H Respiratory Rate 20 H 18 16 Respiratory Pattern Normal Blood Pressure 155/81 H Blood Pressure Mean 105 Pulse Ox 98 96 Oxygen Delivery Method Room Air Room Air 03/27/22 23:05 Temperature Temperature Source Pulse Rate Respiratory Rate 20 H Respiratory Pattern Blood Pressure Blood Pressure Mean Pulse Ox Oxygen Delivery Method Positive well nourished and well developed General Appearance ED: well developed and NAD HEENT Reports moist mucous membranes normocephalic and atraumatic Eyes PERRL, EOMs intact bilaterally and conjunctivae normal General Eye ED: Yes normal appearance of both eyes Neck no lymphadenopathy and supple General: Negative for tenderness Chest Wall Chest: Negative for tenderness Resp normal respiratory effort Resp Narrative: Rhonchorous bilateral Effort and Inspection: symmetric chest movement; Negative for respiratory distress Cardio regular rate, regular rhythm and no murmurs Peripheral Pulses: pulses 2+ throughout GI normal to inspection, nondistended, normoactive bowel sounds and non-tender Palpation: Negative for guarding or rebound tenderness present Back/Spine no CVA tenderness Back/Spine Narrative: Midline lumbar scar, straight leg test negative. 1+ patellar reflex. Pulses are intact distally. Extremity normal to inspection General Extremety ED: Negative for edema or tenderness General Extremity: Negative for edema Neuro oriented x3 and no sensory deficits noted Sensorium / Orientation: awake and alert Skin no rashes or lesions noted and no wounds MDM MDM MDM Narrative Medical decision making narrative: Patient recurrent back pain with no cauda equina symptoms. He states he has not walked in 2 days. IV is placed morphine was given. Labs stable INR subtherapeutic today at 1.4. Reevaluation has improving symptoms. Is able to walk with a walker. He will follow-up with his specialists as an outpatient. Reporting previous surgical history now with injections that are not lasting as long. Discussed other interventions can be discussed as an outpatient with his doctors. He is currently on Vicodin he also still has leftover Valium that was written from 9 days ago per patient. He will use this as needed. All questions were answered. Lab Data Attestation: I reviewed the patient's lab results. Labs: Laboratory Results - last 24 hr 03/27/22 03/27/22 03/27/22 19:35 19:35 19:35 WBC 10.3 RBC 3.66 L Hgb 10.9 L Hct 34.6 L MCV 94.5 H MCH 29.8 MCHC 31.5 L RDW Std Deviation 45.3 H RDW Coeff of Estrada 13.0 Plt Count 259 MPV 10.9 Immature Gran % (Auto) 0.500 Neut % (Auto) 81.5 H Lymph % (Auto) 10.2 L [place] % (Auto) 6.5 Eos % (Auto) 1.1 Baso % (Auto) 0.2 Absolute Neuts (auto) 8.4 H Absolute Lymphs (auto) 1.05 Nucleated RBC % 0 PT 16.4 H INR 1.4 Sodium 142 Potassium 3.8 Chloride 110 H Carbon Dioxide 25.0 Anion Gap 7 BUN 11 Creatinine 0.74 Estim Creat Clear Calc 74.25 Est GFR (MDRD) Af Amer 134 Est GFR (MDRD) Non-Af 111 BUN/Creatinine Ratio 14.8 Glucose 382 H Calcium 9.0 Discharge Plan Triage Chief Complaint: Back ED Provider: Jad Treviño Dx/Rx/DC Orders Clinical Impression: Acute exacerbation of chronic low back pain, Wheezing, Tobacco dependence, Hyperglycemia due to diabetes mellitus Instructions: ED Back Pain (Acute or Chronic) Prescriptions: No Action metformin 500 mg tablet 500 mg PO BIDCM furosemide [Lasix] 40 mg tablet 40 mg PO DAILY metoprolol succinate 25 mg tablet extended release 24 hr 75 mg PO DAILY aspirin 81 mg tablet,delayed release (DR/EC) 81 mg PO DAILY Tradjenta 5 mg tablet 5 mg PO DAILY lisinopril 5 mg tablet 5 mg PO DAILY gabapentin 100 mg capsule 100 mg PO BID Label Comments: TAKE 2 CAPSULES BY MOUTH EVERY 12 HOURS doxepin 50 mg capsule 50 mg PO DAILY atorvastatin 40 mg Tablet 40 mg PO QHS potassium chloride 20 mEq Tablet,Er Particles/Crystals 20 meq PO DAILY warfarin [Jantoven] 6 mg Tablet 6 mg PO DAILY Qty: 30 1RF Rx Instructions: Hold if INR more than 3.5 insulin aspart U-100 [Novolog Flexpen U-100 Insulin] 100 unit/mL (3 mL) insulin pen 10 unit SUBCUT BIDCM Qty: 3 0RF Rx Instructions: Hold if glucose less than 130 mg/dl insulin glargine [Lantus Solostar U-100 Insulin] 100 unit/mL (3 mL) insulin pen 25 unit SUBCUT DAILY Qty: 3 0RF Rx Instructions: Hold if glucose less than 130 mg/dl diazepam [diazepam] 5 mg tablet 5 mg PO Q8 PRN (Reason: Muscle Spasm) Qty: 12 0RF Primary Care Provider: Saurabh Hernandez Chi Referrals: Tayla Tovar MD [Med Staff - Active Staff] - 2 Days Saurabh Hernandez Chi, MD [Primary Care Provider] - 2 Days Disposition Disposition: Home, Self Care Discharge Date/Time: 03/27/22 23:44
[2022-03-27] MEDS: morphine 8 MG/ML Syringe IV (19:43)
[2022-03-27 19:52] LABS: Absolute Lymphocyte Count 1.05 X10^3/uL (0.83-4.51); Absolute Neutrophil Count 8.4 X10^3/uL (2.0-7.7); Basophil# 0.02 X10^3/uL; Basophil% 0.2 % (0-1); Eosinophil# 0.11 X10^3/uL; Eosinophils% 1.1 % (0-5); Hematocrit 34.6 % (40-54); Hemoglobin 10.9 g/dL (13.0-16.5); Lymphocyte # 1.05 X10^3/ul (0.83-4.51); Lymphocyte % 10.2 % (19-41); Mean Corp Hgb Conc 31.5 g/dL (32-36); Mean Corpuscular Hgb 29.8 pg (27.0-32.0); Mean Corpuscular Volume 94.5 fL (80-94); Mean Platelet Vol. 10.9 fl (6.2-12.0); Monocyte# 0.67 X10^3/uL; Monocyte% 6.5 % (0-10); NRBC Flagged by Analyzer 0 % (0-5); Neutrophil # 8.42 X10^3/uL (2.7-7.7); Neutrophil % 81.5 % (47-70); Platelet Count 259 K/mm3 (150-450); RBC Distribution Width SD 45.3 fl (35.1-43.9); Red Blood Count 3.66 M/mm3 (4.6-6.2); White Blood Count 10.3 K/mm3 (4.4-11.0)
[2022-03-27] MEDS: Ipratropium/Albuterol Sulfate 3 ML AMPUL.NEB INHALATION (19:53)
[2022-03-27 19:54] VITALS: PULSE 112; RESP 18
[2022-03-27 19:57] LABS: International Normalized Ratio 1.4; Prothrombin Time (Protime)PT. 16.4 SECONDS (11.7-14.9)
[2022-03-27 19:59] LABS: Anion Gap 7 (5-15); BUN 11 mg/dL (7-18); BUN/Creat Ratio 14.8 RATIO (10-20); Chloride 110 mmol/L (98-107); Creatinine, Serum 0.74 mg/dL (0.70-1.30); EST Glomerular Filtration Rate 111 mL/min (>60); Est Glom Filt Rate - Afr Amer 134 mL/min (>60); Estimated Creatinine Clearance 74.25 ml/min; Glucose 382 mg/dL (74-106); Potassium 3.8 mmol/L (3.5-5.1); Sodium Level 142 mmol/L (136-145)
[2022-03-27 21:49] VITALS: RESP 16; O2SAT 96
[2022-03-27 23:05] VITALS: RESP 20
== END 2022-03-27 23:44 | disposition home or self-care (01) ==
PROVIDERS: Emergency Provider Emergency Medicine; PCP Family Medicine Geriatric Medicine; Visit Provider Emergency Medicine
DX: M54.50 Low back pain, unspecified (principal); E11.51 Type 2 diabetes mellitus with diabetic peripheral angiopathy without gangrene; I11.0 Hypertensive heart disease with heart failure; I50.42 Chronic combined systolic (congestive) and diastolic (congestive) heart failure; E11.65 Type 2 diabetes mellitus with hyperglycemia; E11.42 Type 2 diabetes mellitus with diabetic polyneuropathy; Z79.4 Long term (current) use of insulin; E78.5 Hyperlipidemia, unspecified; I25.10 Atherosclerotic heart disease of native coronary artery without angina pectoris; I25.5 Ischemic cardiomyopathy; G47.33 Obstructive sleep apnea (adult) (pediatric); I25.2 Old myocardial infarction; F17.210 Nicotine dependence, cigarettes, uncomplicated; G89.29 Other chronic pain; Z86.718 Personal history of other venous thrombosis and embolism; Z95.1 Presence of aortocoronary bypass graft; Z79.01 Long term (current) use of 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s; Z79.84 Long term (current) use of oral hypoglycemic drugs; Z79.82 Long term (current) use of aspirin
CPT/HCPCS: 80048; 85025; 85610; 94640; 96374; 99285; A4216

== ENCOUNTER 2022-05-22 14:35 | Inpatient (IN) | payer MEDICARE, MEDICAID, SELFPAY ==
[2022-05-22] VITALS (7 sets, daily range): BP systolic 123–150; BP diastolic 78–117; PULSE 100–110; RESP 16–20; TEMP 36.6–37; O2SAT 94–99; BMI 30.5; BMI 29.9
--- NOTE | 2022-05-22 16:10 | RAD_ITS ---
STUDY: X-RAY - LEFT KNEE REASON FOR EXAM: Male, 71 years old. Trauma. Fall. Pain. TECHNIQUE: 4 view(s) of the knee. COMPARISON: None. FINDINGS: Normal visualized distal femur. Normal visualized proximal tibia and fibula. Normal proximal tibiofibular articulation. There is no acute fracture, dislocation or destructive osseous pathology. There is mild degenerative arthrosis of the medial femorotibial compartment. There is moderate degenerative arthrosis of the lateral femorotibial compartment with moderate joint space narrowing. There is mild degenerative arthrosis of the patellofemoral articulation. There is no demonstrated joint effusion. There are diffuse surgical clips in the posterior medial soft tissues of the knee with vascular calcifications. Question prior bypass surgery. RAD/Knee 4 or More Views IMPRESSION: Degenerative changes of the knee without acute abnormality. Electronically Signed: Waldo Blanco DO at 17:05 EDT ,
--- NOTE | 2022-05-22 16:11 | EDS_ITS ---
HPI History of Present Illness Chief Complaint: Weakness Detail of Chief Complaint: Generalized weakness. Fall today. Informant: patient Onset/Context/Timing Onset: Weeks Context: Gradual Onset Timing: Continuous Current Severity: Mild Maximum Severity: Mild Narrative Narrative: 71-year-old male extensive past medical history including CAD, CHF, [place], prior sternotomy, COPD, DVT, diabetes on Coumadin. Patient states he is just been progressively getting more weak. He lives at home with family. Today he fell injuring his left knee. Denies any LOC or head injury. Denies any recent nausea, vomiting or diarrhea. He also has a rash in his external genitalia area. Prior similar symptoms: No Recent Illness/Hospitalization: No [facility] Medical History Atherosclerosis of coronary artery without angina pectoris Bleeding disorder Chronic combined systolic and diastolic CHF (congestive heart failure) Congestive heart failure COPD (chronic obstructive pulmonary disease) Diabetic foot infection DVT (deep venous thrombosis) Elevated troponin Gangrene of toe GERD (gastroesophageal reflux disease) History of non-ST elevation myocardial infarction (NSTEMI) (04/23/20) Hyperlipidemia Ischemic cardiomyopathy Kidney stones [employer] current use of 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 Lumbar spinal stenosis MSSA (methicillin susceptible Staphylococcus aureus) infection Nicotine dependence Non-healing surgical wound (05/01/20) Nonrheumatic aortic (valve) stenosis 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 Obstructive sleep apnea Osteomyelitis Peripheral vascular occlusive disease Pleural effusion, right Scabies infestation Secondary pulmonary arterial hypertension Smoker Sternal wound infection 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 foot with fat layer exposed Ulcer of right foot with necrosis of bone Home Medications metformin 500 mg tablet 500 mg PO BIDCM diabetes 05/31/20 [History Last Taken 09/21/21] atorvastatin 40 mg tablet 40 mg PO QHS cholesterol 11/12/20 [History Last Taken 09/20/21] potassium chloride 20 mEq tablet,extended release(part/cryst) 20 meq PO DAILY suipplement 12/23/20 [History Last Taken 12/22/20] linagliptin 5 mg tablet (Tradjenta) 5 mg PO DAILY 10/08/21 [History Last Taken Unknown] lisinopril 5 mg tablet 5 mg PO DAILY 10/08/21 [History Last Taken Unknown] metoprolol succinate 25 mg tablet,extended release 24 hr 75 mg PO DAILY 10/08/21 [History Last Taken Unknown] doxepin 50 mg capsule 50 mg PO DAILY 02/11/22 [History Last Taken Unknown] gabapentin 100 mg capsule 100 mg PO BID 02/11/22 [History Last Taken Unknown] insulin aspart U-100 100 unit/mL (3 mL) subcutaneous pen (Novolog Flexpen U-100 Insulin aspart) 10 unit (0.1 mL) subcut BIDCM diabetes #3 mL 02/12/22 [Rx Last Taken Unknown] insulin glargine 100 unit/mL (3 mL) subcutaneous pen (Lantus Solostar U-100 Insulin) 25 unit (0.25 mL) subcut DAILY DM #3 mL 02/12/22 [Rx Last Taken Unknown] warfarin 6 mg tablet (Jantoven) 6 mg PO DAILY #30 tabs 02/12/22 [Rx Last Taken Unknown] diazepam 5 mg tablet 5 mg PO Q8 PRN Muscle Spasm #12 tabs 03/18/22 [Rx Last Peña en Unknown] Allergy/AdvReac Type Severity Reaction Status Date / Time No Known Allergies Allergy Verified 05/22/22 14:36 Family History Mother Diabetes Heart disease Father Diabetes Surgical History H/O coronary artery bypass surgery (05/01/20) History of angioplasty of peripheral vessel (01/02/10) History of femoropopliteal bypass (2008) History of incision and drainage (09/22/20) History of left heart catheterization (04/23/20) History of lumbar laminectomy History of mechanical aortic valve replacement Social History household members: significant other Smoking Status: Current every day smoker tobacco type: cigarettes alcohol intake: never substance use type: does not use caffeine: No ROS ROS ED ROS Narrative Denies recent illness. Generalized weakness. Rash to his groin and genitalia. Review of Systems ROS Unobtainable: Denies due to encephalopathy Constitutional Constitutional ED: Denies chills or fever(s) Eyes Eyes: Denies blurry vision ENT ENT ED: Denies ear pain Cardiovascular Cardiovascular: Denies chest pain Respiratory/Chest Respiratory/Chest: Denies cough or dyspnea Gastrointestinal Gastrointestinal: Denies abdominal pain, constipation, diarrhea, melena, nausea or vomiting Genitourinary Genitourinary ED: Denies dysuria or hematuria Musculoskeletal Musculoskeletal: Denies arthralgias Integumentary Denies abscess Neurologic Neurologic: Denies headache(s) Psychiatric Psychiatric: Denies anxiety Endocrine Endocrinology: Denies cold intolerance Hematologic/Lymphatic Hematologic/Lymphatic: Reports none Allergic/Immunologic Allergic/Immunologic ED: Denies mouth swelling or tongue swelling EXAM Physical Exam Narrative Exam Narrative: Six 11-year-old male no acute distress. Vital signs stable afebrile. Pulse ox 90% on room air no hypoxia. H EENT exam unremarkable. Moist 2 pounds. No signs of trauma to his face or scalp thoracic spine nontender. Trachea midline. Lungs clear to auscultation. Heart tachycardic rate about 110. Chest wall nontender. He has some paper chest wall herniation which he has had for years after one of his cardiac surgeries. Is nontender. Abdomen soft nontender norm al bowel sounds no peritoneal signs. External exam is a significant Kristal infection of his groin and genitalia including his scrotum and penis with edema and swelling. There may or may not be a secondary cellulitis. Moving all 4 extremities. 1+ pitting edema bilaterally. His knee on the left has abrasions. But he has normal flexion-extension. Dorsi and plantar flexion intact. Back nontender. Neurologically is awake and alert. Moving all 4 extremities. Answering questions and following commands. Const Vital Signs: 05/22/22 14:36 05/22/22 17:35 Temperature 97.8 F Temperature Source Temporal Pulse Rate 110 H 101 H Respiratory Rate 16 18 Blood Pressure 150/102 H 132/117 H Blood Pressure Mean 118 122 Pulse Ox 98 98 Oxygen Delivery Method Room Air Room Air Positive well nourished, well developed and obese; Negative for cachectic, contractures or unkempt General Appearance ED: well developed and NAD; Negative for unkempt, cachectic, contractures, cyanotic, diaphoretic or pallor Nutritional Appearance: obese; Negative for cachectic HEENT Reports moist mucous membranes; Denies dry mucous membranes Negative for trauma or tenderness Mouth ED: No dry mucous membranes Mouth: No dry mucous membranes Eyes PERRL and EOMs intact bilaterally General Eye ED: Negative for pale conjunctiva or scleral icterus Neck no lymphadenopathy, supple and no JVD General: Negative for tenderness Lymph Lymphatic: Negative for other Chest Wall inspection of chest normal and palpation of chest normal Chest Narrative: Chest wall hernia. Nontender. Resp normal respiratory effort and clear to auscultation bilaterally Effort and Inspection: Negative for retractions Auscultation: Negative for rales, rhonchi or wheezes Cardio regular rhythm, S1 normal heart sound and S2 normal heart sound; Negative for regular rate Rate: tachycardic GI normal to inspection, nondistended, normoactive bowel sounds, non-tender, non- distended and no masses Inspection: Negative for abdominal distention Auscultation: normoactive bowel sounds Palpation: soft; Negative for tender Back/Spine no CVA tenderness General Back: Negative for CVA tenderness Cervical Spine: Negative for cervical spine tenderness Thoracic Spine / Upper Back: Negative for thoracic spinal tenderness or paraspinal muscle tenderness Lumbar Spine / Lower Back: Negative for lumbar spinal tenderness Extremity Negative for normal to inspection Extremity Narrative: Abrasions to the left knee area. 1+ pitting edema bilaterally. Dorsi and plantar flexion intact. Normal range of motion. No deformity. Neuro oriented x3 and CN's II-XII intact bilaterally Sensorium / Orientation: alert; Negative for orientation impaired, lethargic or stuporous Motor Exam: strength 5/5 throughout Psych mental status grossly normal Appearance: Negative for unkempt Attitude: No agitated Mood & Affect: Negative for depressed, anxious or tearful Skin No no rashes or lesions noted and No no wounds Skin Narrative: Abrasions left knee. Yeast infection groin and genitalia. General Skin Exam: Negative for jaundice or pallor Lesions: No lesion noted Rashes: No rashes noted MDM MDM MDM Narrative Medical decision making narrative: 71-year-old male extensive past medical history of generalized weakness and fall today. Screening labs to be obtained. Is an obvious yeast infection of his right groin and genitalia and scrotum. There may or may not be a secondary cellulitis. He also has pitting edema lower extremities which most likely is chronic. There is a good chance he will need to be admitted. Repeat exam unchanged. Doing well at 6:35 PM. Hospitalist is aware of the patient. Lab Data Attestation: I reviewed the patient's lab results. Lab results narrative: CBC shows white count 7.8. H&H 11.1 and 37.3. Platelets 241. Electrolytes sodium 135 gap of 8 normal BUN 16 creatinine 1.3. Glucose elevated 339. Lactic acid 2.6. Liver enzymes unremarkable. Patient is on Coumadin his PTT is 38 INR 3.9. Labs: Laboratory Results - last 24 hr 05/22/22 05/22/22 05/22/22 16:17 16:17 16:17 WBC 7.8 RBC 4.60 Hgb 11.1 L Hct 37.3 L MCV 81.1 MCH 24.1 L MCHC 29.8 L RDW Std Deviation 55.2 H RDW Coeff of Estrada 18.9 H Plt Count 241 MPV 11.3 Immature Gran % (Auto) 0.400 Neut % (Auto) 78.6 H Lymph % (Auto) 12.0 L [place] % (Auto) 8.3 Eos % (Auto) 0.4 Baso % (Auto) 0.3 Absolute Neuts (auto) 6.1 Absolute Lymphs (auto) 0.93 Nucleated RBC % 0 PT INR Sodium 135 L Potassium 4.6 Chloride 103 Carbon Dioxide 24.0 Anion Gap 8 BUN 16 Creatinine 1.30 Estim Creat Clear Calc 57.12 Est GFR (MDRD) Af Amer 70 Est GFR (MDRD) Non-Af 58 L BUN/Creatinine Ratio 12.3 Glucose 339 H Lactic Acid 2.6 H* Calcium 8.7 Total Bilirubin 1.60 H AST 33 ALT 32 Alkaline Phosphatase 162 H Total Protein 6.6 Albumin 2.8 L Globulin 3.8 Albumin/Globulin Ratio 0.7 L 05/22/22 16:50 WBC RBC Hgb Hct MCV MCH MCHC RDW Std Deviation RDW Coeff of Estrada Plt Count MPV Immature Gran % (Auto) Neut % (Auto) Lymph % (Auto) [place] % (Auto) Eos % (Auto) Baso % (Auto) Absolute Neuts (auto) Absolute Lymphs (auto) Nucleated RBC % PT 38.0 H INR 3.9 Sodium Potassium Chloride Carbon Dioxide Anion Gap BUN Creatinine Estim Creat Clear Calc Est GFR (MDRD) Af Amer Est GFR (MDRD) Non-Af BUN/Creatinine Ratio Glucose Lactic Acid Calcium Total Bilirubin AST ALT Alkaline Phosphatase Total Protein Albumin Globulin Albumin/Globulin Ratio Radiography Chest X-Ray - ED: 1 View and Read by ED Physician Diagnostic Testing: Clinical Impression(s) from Imaging Studies Knee X-Ray 05/22/22 16:10 IMPRESSION: Degenerative changes of the knee without acute abnormality. Electronically Signed: Waldo Blanco DO at 17:05 EDT , Chest X-Ray 05/22/22 16:32 IMPRESSION: Moderate right pleural effusion Electronically Signed: Mike Byrnes MD at 17:24 EDT Reading Location ID and State: [facility] / [place] , Service support , Chest x-ray, portable, single view shows a right pleural effusion. Chronic changes no acute process interpreted both by myself and radiologist. Left knee x-ray 4 views interpreted myself and radiologist shows chronic changes. Arthritis. No fracture. Discharge Plan Triage Chief Complaint: Weakness ED Provider: Gordo Oquendo Dx/Rx/DC Orders Clinical Impression: Generalized weakness, Ischemic cardiomyopathy, Type 2 diabetes mellitus, Skin yeast infection, CHF (congestive heart failure) Primary Care Provider: Saurabh Hernandez Chi Disposition Disposition: Acute Care Hospital [facility]
--- NOTE | 2022-05-22 16:32 | RAD_ITS ---
STUDY: X-RAY CHEST REASON FOR EXAM: Male, 71 years old. weakness TECHNIQUE: Single frontal view of the chest. COMPARISON: October 18, 2021 FINDINGS: The lungs are clear and expanded. Moderate pleural effusion. Normal size heart. Normal mediastinum and thu. Normal visualized pulmonary arteries. Normal visualized aortic arch and descending thoracic aorta. Normal visualized thoracic spine. Normal visualized ribs, clavicles, and shoulders. There is no demonstrated abnormality of the visualized soft tissue structures of the upper abdomen. RAD/Chest 1 View (Portable) IMPRESSION: Moderate right pleural effusion Electronically Signed: Mike Byrnes MD at 17:24 EDT ,
[2022-05-22 16:35] LABS: Absolute Lymphocyte Count 0.93 X10^3/uL (0.83-4.51); Absolute Neutrophil Count 6.1 X10^3/uL (2.0-7.7); Basophil# 0.02 X10^3/uL; Basophil% 0.3 % (0-1); Eosinophil# 0.03 X10^3/uL; Eosinophils% 0.4 % (0-5); Hematocrit 37.3 % (40-54); Hemoglobin 11.1 g/dL (13.0-16.5); Lymphocyte # 0.93 X10^3/ul (0.83-4.51); Mean Corp Hgb Conc 29.8 g/dL (32-36); Mean Corpuscular Hgb 24.1 pg (27.0-32.0); Mean Corpuscular Volume 81.1 fL (80-94); Mean Platelet Vol. 11.3 fl (6.2-12.0); Monocyte# 0.64 X10^3/uL; Monocyte% 8.3 % (0-10); NRBC Flagged by Analyzer 0 % (0-5); Neutrophil % 78.6 % (47-70); Platelet Count 241 K/mm3 (150-450); RBC Distribution Width CV 18.9 % (11.6-14.6); RBC Distribution Width SD 55.2 fl (35.1-43.9); White Blood Count 7.8 K/mm3 (4.4-11.0)
[2022-05-22 17:06] LABS: ALB/GLOB Ratio 0.7 RATIO (0.9-2.4); AST(SGOT) 33 U/L (15-37); Alanine Aminotransfer ALT/SGPT 32 U/L (16-61); Albumin, Serum 2.8 g/dL (3.2-5.0); Alkaline Phosphatase 162 U/L (45-117); Anion Gap 8 (5-15); BUN 16 mg/dL (7-18); BUN/Creat Ratio 12.3 RATIO (10-20); Calcium,Total 8.7 mg/dL (8.5-10.1); Chloride 103 mmol/L (98-107); EST Glomerular Filtration Rate 58 mL/min (>60); Est Glom Filt Rate - Afr Amer 70 mL/min (>60); Estimated Creatinine Clearance 57.12 ml/min; Globulin 3.8 g/dL (2.2-4.2); Glucose 339 mg/dL (74-106); Potassium 4.6 mmol/L (3.5-5.1); Protein, Total 6.6 g/dL (6.4-8.2); Sodium Level 135 mmol/L (136-145)
[2022-05-22 17:13] LABS: International Normalized Ratio 3.9
[2022-05-22 17:15] LABS: Lactic Acid 2.6 mmol/L (0.4-1.9)
--- NOTE | 2022-05-22 17:51 | PCM.HP.STD ---
HPI - General General Date of Admission: 05/22/22 Date of Service: 05/22/22 Chief Complaint: Fall, inability to care for self. HPI Narrative The patient is a 71 y/o M w/ PMHx: Valvular heart disease, CAD, COPD, Chronic Systolic/Diastolic CHF/Ischemic Cardiomyopathy, HTN, HLD, GERD, Diabetes mellitus type II with PAD/PVOD/neuropathy, Tobacco use, BEATRICE who presents to the [facility] ED on 05/22/22 with history of progressively worsening fatigue, malaise, weakness and debility, noting difficulty caring for himself or even getting to the restroom prompting ED evaluation. Patient does report a fall on day of presentation secondary to his debility and weakness, landing on his L knee. He also reports notable groin/genital region red beefy rash. Work-up in the ED included T97.8, heart rate 110, BP 150/102, respiratory rate 16, 98% on room air, CBC with WC 7.8, hemoglobin 11.1, MCV 81.1, platelet 241 without marked shift, INR 3.9, CMP with sodium 135, glucose 339, lactic acid 2.6, T bili 1.60, alk phos 162 otherwise hepatic profile not marked, plain film of the left knee secondary to fall with degenerative changes with no acute abnormality, chest x-ray moderate R sided effusion, UA/UCx requested but pending upon evaluation. [facility] Medical History (Updated 05/22/22 @ 20:[address] 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 Lumbar spinal stenosis MSSA (methicillin susceptible Staphylococcus aureus) infection Nicotine dependence Non-healing surgical wound (05/01/20) Nonrheumatic aortic (valve) stenosis 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 Obstructive sleep apnea Osteomyelitis Peripheral vascular occlusive disease Pleural effusion, right Scabies infestation Secondary pulmonary arterial hypertension Smoker Sternal wound infection 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 foot with fat layer exposed Ulcer of right foot with necrosis of bone Home Medications metformin 500 mg tablet 500 mg PO BIDCM diabetes 05/31/20 [History Last Taken 09/21/21] atorvastatin 40 mg tablet 40 mg PO QHS cholesterol 11/12/20 [History Last Taken 09/20/21] potassium chloride 20 mEq tablet,extended release(part/cryst) 20 meq PO DAILY suipplement 12/23/20 [History Last Taken 12/22/20] linagliptin 5 mg tablet (Tradjenta) 5 mg PO DAILY 10/08/21 [History Last Taken Unknown] lisinopril 5 mg tablet 5 mg PO DAILY 10/08/21 [History Last Taken Unknown] metoprolol succinate 25 mg tablet,extended release 24 hr 75 mg PO DAILY 10/08/21 [History Last Taken Unknown] doxepin 50 mg capsule 50 mg PO DAILY 02/11/22 [History Last Taken Unknown] gabapentin 100 mg capsule 100 mg PO BID 02/11/22 [History Last Taken Unknown] insulin aspart U-100 100 unit/mL (3 mL) subcutaneous pen (Novolog Flexpen U-100 Insulin aspart) 10 unit (0.1 mL) subcut BIDCM diabetes #3 mL 02/12/22 [Rx Last Taken Unknown] insulin glargine 100 unit/mL (3 mL) subcutaneous pen (Lantus Solostar U-100 Insulin) 25 unit (0.25 mL) subcut DAILY DM #3 mL 02/12/22 [Rx Last Taken Unknown] warfarin 6 mg tablet (Jantoven) 6 mg PO DAILY #30 tabs 02/12/22 [Rx Last Taken Unknown] diazepam 5 mg tablet 5 mg PO Q8 PRN Muscle Spasm #12 tabs 03/18/22 [Rx Last Taken Unknown] Allergy/AdvReac Type Severity Reaction Status Date / Time No Known Allergies Allergy Verified 05/22/22 14:36 Family History Mother Diabetes Heart disease Father Diabetes Surgical History H/O coronary artery bypass surgery (05/01/20) History of angioplasty of peripheral vessel (01/02/10) History of femoropopliteal bypass (2008) History of incision and drainage (09/22/20) History of left heart catheterization (04/23/20) History of lumbar laminectomy History of mechanical aortic valve replacement Social History household members: significant other Smoking Status: Current every day smoker tobacco type: cigarettes alcohol intake: never substance use type: does not use caffeine: No ROS ROS Narrative Admission Review of Systems: CONSTITUTIONAL: No weight loss, fever, chills, + weakness or fatigue. HEENT: Eyes: No visual loss, blurred vision, double vision or yellow sclerae. Ears, Nose, Throat: No hearing loss, sneezing, congestion, runny nose or sore throat. SKIN: + Significant poor skin care, stasis disease, significant groin and scrotal beefy red yeast appearing rash CARDIOVASCULAR: + Chronic sternal defect. No chest pain, chest pressure or chest discomfort, palpitations, edema, orthopnea, syncopal events. RESPIRATORY: No shortness of breath, cough or sputum, wheezing, hemoptysis. GASTROINTESTINAL: No anorexia, nausea, vomiting or diarrhea, abdominal pain, melena, BRBPR. GENITOURINARY: No dysuria, frequency, urgency or retention. NEUROLOGICAL: No headache, dizziness, syncope, paralysis, ataxia, numbness or tingling in the extremities, focal weakness, change in bowel or bladder control, seizure. MUSCULOSKELETAL: + muscle, back pain, joint pain or stiffness. HEMATOLOGIC: + anemia, bleeding or bruising. LYMPHATICS: No enlarged nodes. No history of splenectomy. PSYCHIATRIC: No history of depression or anxiety. ENDOCRINOLOGIC: No reports of sweating, cold or heat intolerance. No polyuria or polydipsia. ALLERGIES: + history of rhinitis. Vital Signs Vital Signs Vital Signs: 05/22/22 14:36 05/22/22 17:35 Temperature 97.8 F Temperature Source Temporal Pulse Rate 110 H 101 H Respiratory Rate 16 18 Blood Pressure 150/102 H 132/117 H Blood Pressure Mean 118 122 Pulse Ox 98 98 Oxygen Delivery Method Room Air Room Air Weight Weight: 219 lb Body Mass Index (BMI) 30.5 Physical Exam Narrative Physical examination: General: Awake, alert, oriented x 3 and cooperative, seated upright in the ED bed, fatigued appearing, flat affect, denies any complaints. Skin: Normal color, normal turgor, no icterus, no cyanosis except various excoriations especially lower extremities as well as significant groin and scrotal beefy red yeast appearing rash. HEENT: AT/NC, EOMI, PERRLA, moderately dry MM, no carotid bruits or JVD noted. Lungs: Mildly diminished, greater bases, appropriate effort, no rales, ronchi or wheezing. Heart: Regular rate and rhythm; no gallop, rub audible. Abdomen: Soft, NTTP, ND, mildly hyperactive BS, no HSM. Extremities: No cyanosis, clubbing, or edema, evidence podiatric surgery with amputations, see skin. Neurological: Patient awake, alert, oriented as noted, cognitive function appears baseline intact; pupils equally reactive to light and accommodation, cranial nerves grossly normal, moving all 4 extremities, no focal deficits but significantly moderately to severely globally decreased strength. Psychiatric: Affect appears flat, fatigued, similar to prior presentations with still ongoing suspicion of underlying depression. Results Lab / Micro Data Result Diagrams: 05/22/22 16:17 05/22/22 16:17 Labs: Laboratory Results - last 24 hr 05/22/22 16:17: WBC 7.8, RBC 4.60, Hgb 11.1 L, Hct 37.3 L, MCV 81.1, MCH 24.1 L, MCHC 29.8 L, RDW Std Deviation 55.2 H, RDW Coeff of Estrada 18.9 H, Plt Count 241, MPV 11.3, Immature Gran % (Auto) 0.400, Neut % (Auto) 78.6 H, Lymph % (Auto) 12.0 L, [place] % (Auto) 8.3, Eos % (Auto) 0.4, Baso % (Auto) 0.3, Absolute Neuts (auto) 6.1, Absolute Lymphs (auto) 0.93, Nucleated RBC % 0 05/22/22 16:17: Sodium 135 L, Potassium 4.6, Chloride 103, Carbon Dioxide 24.0, Anion Gap 8, BUN 16, Creatinine 1.30, Estim Creat Clear Calc 57.12, Est GFR (MDRD) Af Amer 70, Est GFR (MDRD) Non-Af 58 L, BUN/Creatinine Ratio 12.3, Glucose 339 H, Calcium 8.7, Total Bilirubin 1.60 H, AST 33, ALT 32, Alkaline Phosphatase 162 H, Total Protein 6.6, Albumin 2.8 L, Globulin 3.8, Albumin/Globulin Ratio 0.7 L 11/05/22 16:17: Lactic Acid 2.6 H* 05/22/22 16:50: PT 38.0 H, INR 3.9 Radiology Impression Knee X-Ray 05/22/22 16:10 IMPRESSION: Degenerative changes of the knee without acute abnormality. Electronically Signed: Waldo Blanco DO at 17:05 EDT , Chest X-Ray 05/22/22 16:32 IMPRESSION: Moderate right pleural effusion Electronically Signed: Mike Byrnes MD at 17:24 EDT , Assessment & Plan Assessment/Plan (1) Adult failure to thrive: PLAN: Plan The patient is a 71 y/o M w/ PMHx: Valvular heart disease, CAD, COPD, Chronic Systolic/Diastolic CHF/Ischemic Cardiomyopathy, HTN, HLD, GERD, Diabetes mellitus type II with PAD/PVOD/neuropathy, Tobacco use, BEATRICE who presents to the [facility] ED on 05/22/22 with history of progressively worsening fatigue, malaise, weakness and debility, noting difficulty caring for himself or even getting to the restroom prompting ED evaluation. #1. Debility, adult failure to thrive: Given significant risk to self, falls already occurring we will admit to medical surgical floor, maintain on fall and aspiration precautions, will obtain COVID PCR to be cautious as certainly could be an etiology for his presentation, he does have notable region candidal infection with possible superimposed bacterial infection, continue judicious hydration given mild lactic acidosis concurrently suspected secondary to decreased intake with failure to care for himself but also could be associated with current skin presentation as noted, trend CBC, CMP, obtain PT/OT/case management consultations for discharge planning as likely would benefit from assisted living versus skilled placement as he is clearly unable to care for self and has had frequent admissions with similar presentation. #2. Lactic acidosis: Suspect secondary to mild dehydration given acute presentation and failure to care for self with decreased oral intake, will judiciously hydrate given CHF history as noted, trend lactic acid per facility protocol. Patient does have notable region candidal infection with possible superimposed bacterial infection which could also be the cause. Procalcitonin requested be cautious as well as urinalysis and certainly could be an infectious etiology but again no marked WBC elevation or left shift evident and afebrile. #3. Candidal infection: Patient with significant groin and scrotal/external genitalia evidence of candidal infection, will aggressively treat with general routine hygiene intervention as well as topical nystatin and low threshold if not improving to add antibiotics as certainly could have a superimposed bacterial infection but given afebrile with no significant left shift will hold on immediate usage of antibiotic therapies. #4. Diabetes mellitus type II: Hold oral home regimen, continue home insulin regimen, ADA diet, accu checks w/ ISS. #5. CAD: Status post CABG, will continue Coumadin with INR trending with hold parameters with admission INR mildly elevated 3.9, aspirin, statin, metoprolol, lisinopril home regimen #6. Chronic Systolic/Diastolic CHF/Ischemic Cardiomyopathy: Compensated despite CXR with noted R sided moderate effusion, maintained 98% on RA, will defer any immediate interventions given stable appearance, will continue patient home aspirin, Coumadin with INR trending, statin, metoprolol, lisinopril, Lasix home regimen. #7. COPD: Not on any routine inhalers, as needed albuterol, encourage head of bed and I-S. #8. PAD/PVOD: Status post prior femoropopliteal bypass and peripheral PCI, will continue Coumadin with INR trending with hold parameters with admission INR mildly elevated 3.9, aspirin therapy, statin as well as hypertensive regimen, diabetic regimen as noted. #9. Valvular heart disease: We will continue Coumadin with INR trending with hold parameters with admission INR mildly elevated 3.9, 09/22/2021 echocardiogram with normal LV size, EF 30%, moderate global hypokinesis LV, stage III diastolic dysfunction, stable appearing bioprosthetic AV apparatus. #10. Hypertension: Continue home regimen including metoprolol, lisinopril, Lasix with hold parameters as needed, PRN hydralazine. #11. Hyperlipidemia: Continue home statin regimen. #12. Tobacco Abuse: Encouraged cessation, inpatient consultation per RT, NR if desired. #13. BEATRICE: CPAP nightly if amenable. #14. DVT prophylaxis: SCDs, will continue Coumadin with INR trending with hold parameters with admission INR mildly elevated 3.9. #15. 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 Discussed CODE status at length including difference between FULL code, DNR-CCA and DNR-CC status. Following discussions about the differences in these status, requested DNR-CCA, no intubation. Advanced Care Planning Face to Face Time: 16 minutes. Charges/Coding Visit Charges OBSV E&M: 35349 Initial observation care L3 Procedures Hospitalists Procedures: 88918 Advncd Care Plan 30 Min
[2022-05-22 18:55] LABS: Magnesium 1.8 mg/dL (1.6-2.6); Phosphorus 3.3 mg/dL (2.5-4.9)
[2022-05-22 19:04] LABS: Procalcitonin 0.14 ng/mL (0.00-0.09)
[2022-05-22] MEDS: 0.9% Normal Saline 1,000 ML 100 ML IV (20:02)
[2022-05-22 20:32] LABS: Reflex Lactate? Y
[2022-05-22 20:55] LABS: Lactic Acid 2.3 mmol/L (0.4-1.9)
[2022-05-22] MEDS: Menthol/Lanolin/Calamine/Znox 113 GM Tube 1 APPLIC TOPICAL (21:21)
[2022-05-22] MEDS: Nystatin Powder 15gm Bottle 1 APPLIC TOPICAL (21:22)
[2022-05-22] MEDS: Insulin Lispro 100 UNIT/ML INSULN.PEN SC (21:22)
[2022-05-22] MEDS: Atorvastatin Calcium 40 MG Tablet PO (21:23)
[2022-05-22] MEDS: Gabapentin 100 MG Capsule PO (21:23)
[2022-05-22 21:37] LABS: Probe Check PASS; Specimen Processing Control PASS
[2022-05-22 22:30] LABS: Bedside Glucose 323 mg/dL (74-106)
[2022-05-23] VITALS (13 sets, daily range): BP systolic 110–138; BP diastolic 72–98; PULSE 67–108; RESP 19–24; TEMP 36.4–37.2; O2SAT 92–99
[2022-05-23] MEDS: 0.9% Normal Saline 1,000 ML 100 ML IV ×2 (03:54→20:27)
[2022-05-23 06:04] LABS: Absolute Neutrophil Count 4.2 X10^3/uL (2.0-7.7); Basophil# 0.04 X10^3/uL; Basophil% 0.6 % (0-1); Eosinophil# 0.13 X10^3/uL; Eosinophils% 1.9 % (0-5); Hemoglobin 10.3 g/dL (13.0-16.5); Mean Corp Hgb Conc 30.3 g/dL (32-36); Mean Corpuscular Hgb 24.6 pg (27.0-32.0); Mean Corpuscular Volume 81.1 fL (80-94); Mean Platelet Vol. 11.8 fl (6.2-12.0); Monocyte# 0.67 X10^3/uL; NRBC Flagged by Analyzer 0 % (0-5); Neutrophil # 4.22 X10^3/uL (2.7-7.7); Neutrophil % 63.4 % (47-70); Platelet Count 214 K/mm3 (150-450); RBC Distribution Width SD 55.2 fl (35.1-43.9); Red Blood Count 4.19 M/mm3 (4.6-6.2); White Blood Count 6.7 K/mm3 (4.4-11.0)
[2022-05-23] MEDS: Nystatin Powder 15gm Bottle 1 APPLIC TOPICAL ×3 (06:11→22:18)
[2022-05-23] MEDS: Insulin Lispro 100 UNIT/ML INSULN.PEN SC ×3 (06:12→16:21)
[2022-05-23 06:31] LABS: ALB/GLOB Ratio 0.7 RATIO (0.9-2.4); AST(SGOT) 54 U/L (15-37); Alanine Aminotransfer ALT/SGPT 41 U/L (16-61); Albumin, Serum 2.3 g/dL (3.2-5.0); Alkaline Phosphatase 164 U/L (45-117); Anion Gap 6 (5-15); BUN 17 mg/dL (7-18); BUN/Creat Ratio 16.5 RATIO (10-20); Chloride 105 mmol/L (98-107); Creatinine, Serum 1.03 mg/dL (0.70-1.30); EST Glomerular Filtration Rate 76 mL/min (>60); Est Glom Filt Rate - Afr Amer 92 mL/min (>60); Estimated Creatinine Clearance 72.09 ml/min; Globulin 3.3 g/dL (2.2-4.2); Glucose 274 mg/dL (74-106); Potassium 4.2 mmol/L (3.5-5.1); Protein, Total 5.6 g/dL (6.4-8.2); Sodium Level 135 mmol/L (136-145)
[2022-05-23] MEDS: Albuterol 2.5 MG/3 ML VIAL.NEB. INHALATION (06:45)
[2022-05-23 07:05] LABS: Bedside Glucose 277 mg/dL (74-106)
[2022-05-23] MEDS: Insulin Lispro 100 UNIT/ML INSULN.PEN 10 UNIT SC ×2 (07:40→16:22)
[2022-05-23] MEDS: Glucerna Shake 120 ML LIQUID PO ×3 (07:42→16:25)
[2022-05-23 08:08] LABS: Mucous, Urine 0 SEEN /hpf (<or=2+); Squamous Epithelial Cells - UA 0 SEEN /hpf (0-5)
[2022-05-23 08:21] LABS: Color, Urine Yellow (Yellow); Glucose, Dipstick 100 mg/dl (Normal); Ketone-Dipstick 5 mg/dl (Negative); Leukocyte Esterase-Dipstick 500 /ul (Negative); Nitrite-Dipstick Negative (Negative); Occult Blood-Urine 150 /ul (Negative); Protein-Dipstick 100 mg/dl (Negative); Urine Clarity Clear (Clear); Urine Urobilinogen 4 mg/dl (Normal)
[2022-05-23 08:32] LABS: Urine Bilirubin Dipstick 1 mg/dL (Negative)
[2022-05-23 08:33] LABS: Bacteria 2+ /hpf (None Seen); Red Blood Cells-Urine 0-5 SEEN /hpf (0-5); White Blood Cells 25-50 SEEN /hpf (0-5)
[2022-05-23] MEDS: Furosemide 40 MG Tablet PO (10:07)
[2022-05-23] MEDS: Aspirin E.C. 81 MG Tablet PO (10:07)
[2022-05-23] MEDS: Metoprolol(XL)Succ 25 MG Tablet 75 MG PO (10:07)
[2022-05-23] MEDS: DOXEPIN HCL 50 MG CAPSULE PO (10:08)
[2022-05-23] MEDS: Lisinopril 5 MG Tablet PO (10:08)
[2022-05-23] MEDS: Potassium Chloride Oral Tablet 20 MEQ PO (10:08)
[2022-05-23] MEDS: Gabapentin 100 MG Capsule PO (10:15)
[2022-05-23] MEDS: Menthol/Lanolin/Calamine/Znox 113 GM Tube 1 APPLIC TOPICAL ×4 (10:15→22:17)
[2022-05-23] MEDS: Insulin Glargine-YFGN 100 UNIT/ML Pen 25 UNIT SC (10:18)
[2022-05-23 11:40] LABS: Bedside Glucose 171 mg/dL (74-106)
--- NOTE | 2022-05-23 12:47 | NURSING ---
Note sent to Dr. Nance about yeast in folds. No new orders.
--- NOTE | 2022-05-23 14:21 | PN.HOSP_ITS ---
Subjective Subjective Patient seen and examined. HE complained of still feeling weak and tired. HE had no other complaints and review of systems is otherwise negative. He was admitted o/a of weakness and debility and failure to thrive. Objective Data Objective Data Vital Signs: Vital Signs Temp Pulse Resp BP Pulse Ox O2 Del Method 97.6 F L 101 H 19 H 116/72 98 Room Air 05/23/22 10:40 05/23/22 10:40 05/23/22 10:40 05/23/22 10:40 05/23/22 10:40 05/23/22 10:40 Oxygen Delivery Method Room Air Weight: 217 lb 13.067 oz Body Mass Index (BMI) 29.9 Intake & Output: Intake and Output for Last 24 Hours 05/21/22 05/22/22 05/23/22 23:59 23:59 22:59 Intake Total 1186.67 / 1186.67 Output Total 600 / 600 Balance 586.67 / 586.67 Lab / Micro Data Result Diagrams: 05/23/22 05:10 05/23/22 05:10 Labs: Laboratory Results - last 24 hr 05/22/22 16:17: WBC 7.8, RBC 4.60, Hgb 11.1 L, Hct 37.3 L, MCV 81.1, MCH 24.1 L, MCHC 29.8 L, RDW Std Deviation 55.2 H, RDW Coeff of Estrada 18.9 H, Plt Count 241, MPV 11.3, Immature Gran % (Auto) 0.400, Neut % (Auto) 78.6 H, Lymph % (Auto) 12. 0 L, [place] % (Auto) 8.3, Eos % (Auto) 0.4, Baso % (Auto) 0.3, Absolute Neuts (auto) 6.1, Absolute Lymphs (auto) 0.93, Nucleated RBC % 0 05/22/22 16:17: Sodium 135 L, Potassium 4.6, Chloride 103, Carbon Dioxide 24.0, Anion Gap 8, BUN 16, Creatinine 1.30, Estim Creat Clear Calc 57.12, Est GFR (MDRD) Af Amer 70, Est GFR (MDRD) Non-Af 58 L, BUN/Creatinine Ratio 12.3, Glucose 339 H, Calcium 8.7, Total Bilirubin 1.60 H, AST 33, ALT 32, Alkaline Phosphatase 162 H, Total Protein 6.6, Albumin 2.8 L, Globulin 3.8, Albumin /Globulin Ratio 0.7 L 05/22/22 16:17: Lactic Acid 2.6 H* 05/22/22 16:50: PT 38.0 H, INR 3.9 05/22/22 18:25: Phosphorus 3.3, Magnesium 1.8 05/22/22 18:25: Procalcitonin 0.14 H 05/22/22 19:21: Urine Color Cancelled, Urine Clarity Cancelled, Urine pH Cancelled, Ur Specific [place] Cancelled, U Specif Grav (Refrac) Cancelled, Urine Protein Cancelled, Urine Glucose (UA) Cancelled, Urine Ketones Cancelled, Urine Occult Blood Cancelled, Urine Nitrite Cancelled, Urine Bilirubin Cancelled, Urine Urobilinogen Cancelled, Ur Leukocyte Esterase Cancelled, Urine RBC Cancelled, Urine WBC Cancelled, Ur Squamous Epith Cells Cancelled, Ur Transition Epith Cell Cancelled, Ur Renal Epithelial Cell Cancelled, Calcium Oxalate Crystal Cancelled, Uric Acid Crystals Cancelled, Triple Phos Crystals Cancelled, Other Crystals Cancelled, Amorphous Sediment Cancelled, Urine Bacteria Cancelled, Hyaline Casts Cancelled, Fine Granular Casts Cancelled, Coarse Granular Casts Cancelled, Waxy Casts Cancelled, RBC Casts Cancelled, WBC Casts Cancelled, Urine Mucus Cancelled, Urine Trichomonas Cancelled, Urine Yeast Cancelled 05/22/22 19:21: COVID-19 (SCAR) Not Detected 05/22/22 20:34: POC Glucose 323 H 05/22/22 21:40: Lactic Acid 2.3 H* 05/23/22 05:10: WBC 6.7, RBC 4.19 L, Hgb 10.3 L, Hct 34.0 L, MCV 81.1, MCH 24.6 L, MCHC 30.3 L, RDW Std Deviation 55.2 H, RDW Coeff of Estrada 19.0 H, Plt Count 214, MPV 11.8, Immature Gran % (Auto) 0.100, Neut % (Auto) 63.4, Lymph % (Auto) 24.0, [place] % (Auto) 10.0, Eos % (Auto) 1.9, Baso % (Auto) 0.6, Absolute Neuts (auto) 4.2, Absolute Lymphs (auto) 1.60, Nucleated RBC % 0 05/23/22 05:10: Sodium 135 L, Potassium 4.2, Chloride 105, Carbon Dioxide 24.0, Anion Gap 6, BUN 17, Creatinine 1.03, Estim Creat Clear Calc 72.09, Est GFR (MDRD) Af Amer 92, Est GFR (MDRD) Non-Af 76, BUN/Creatinine Ratio 16.5, Glucose 274 H, Calcium 8.0 L, Total Bilirubin 1.40 H, AST 54 H, ALT 41, Alkaline Phosphatase 164 H, Total Protein 5.6 L, Albumin 2.3 L, Globulin 3.3, Albumin/Globulin Ratio 0.7 L 05/23/22 06:10: POC Glucose 277 H 05/23/22 07:50: Urine Color Yellow, Urine Clarity Clear, Urine pH 5.0, Ur S pecific [place] 1.020, Urine Protein 100 H, Urine Glucose (UA) 100 H, Urine Ketones 5 H, Urine Occult Blood 150 H, Urine Nitrite Negative, Urine Bilirubin 1 H, Urine Urobilinogen 4 H, Ur Leukocyte Esterase 500 H, Urine RBC 0-5 SEEN, Urine WBC 25-50 SEEN, Ur Squamous Epith Cells 0 SEEN, Urine Bacteria 2+, Urine Mucus 0 SEEN 05/23/22 11:23: POC Glucose 171 H Radiography Diagnostic Testing: Radiology Impression Knee X-Ray 05/22/22 16:10 IMPRESSION: Degenerative changes of the knee without acute abnormality. Electronically Signed: Waldo Blanco DO at 17:05 EDT Reading Location ID and State: [address] [place] [address] Tel [phone], Service support , Chest X-Ray 05/22/22 16:32 IMPRESSION: Moderate right pleural effusion Electronically Signed: Mike Byrnes MD at 17:24 EDT Reading Location ID and State: [facility] / [place] , Service support , Physical Exam Const alert, oriented x3 and no apparent distress Constitutional Narrative: frail HEENT head/scalp atraumatic, moist oral mucous membranes and oropharynx normal Head and Scalp: normocephalic Mouth: oral and palatal mucosa normal Eyes PERRL, EOMs intact bilaterally and conjunctivae normal Resp normal respiratory effort, no retractions and no use of accessory muscles Cardio regular rate, regular rhythm, S1 normal heart sound, S2 normal heart sound and no murmurs GI normal to inspection, nondistended, normoactive bowel sounds, soft to palpation and non-tender Extremity normal to inspection and full ROM Skin Skin Narrative: yeast infection in groin Neuro oriented x3, CN's II-XII intact bilaterally and moves all extremities Sensorium / Orientation: awake and alert Psych affect normal Assessment & Plan Assessment/Plan (1) Adult failure to thrive: (2) Generalized weakness: PLAN: Plan #Debility with failure to thrive * unable to care for himself at home. Keeps falling at home * PT/OT on board. Fall precautions. * hydrate gently with IVF * #Lactic acidosis * likely due to dehydration and reduced intake * gently hydrate with IVF #Kristal infection * Is extensive yeast infection in the groin. On nystatin powder. * If not improving consider adding on antifungals. No clear evidence of superimposed bacterial infection * #UTI * Urine has 2+ bacteria and 500 leukocyte esterase * In light of his debility and failure to thrive, UTI may be playing a role. I therefore think it is reasonable to start treating patient with IV ceftriaxone for UTI * Urine cultures ordered and pending. * #Type 2 diabetes mellitus. * On lantus 25 units daily. On insulin sliding scale. * All meds on hold on account of lactic acidosis. * Accu-Cheks ACH S. #CAD s/p CABG: On aspirin, statin and metoprolol #Combined heart failure: Has chronic right-sided effusion. Not in exacerbation. Metoprolol and lisinopril as well as Lasix. #COPD: Not in exacerbation. On breathing treatments with bronchodilators. #PAD/PVOD: s/p fem pop bypass with peripheral PCI. On coumadin. #History of aortiv valve replacement: on coumadin. INR is therapeutic #Hyperlipidemia: on statin #HYpertension: on lisinopril and metoprolol #BEATRICE: on CPAP qhs DVT prophylaxis: on coumadin. Charges/Coding Visit Charges Inpatient E&M: 64104 Subs Hosp L2
[2022-05-23] MEDS: Ceftriaxone 1 GM/50 ML BAG IV (16:05)
[2022-05-23 16:30] LABS: Bedside Glucose 215 mg/dL (74-106)
[2022-05-23 16:35] LABS: International Normalized Ratio 3.4
[2022-05-23] MEDS: Atorvastatin Calcium 40 MG Tablet PO (22:23)
[2022-05-23 23:20] LABS: Bedside Glucose 106 mg/dL (74-106)
[2022-05-24] VITALS (20 sets, daily range): BP systolic 90–116; BP diastolic 64–90; PULSE 68–92; RESP 18–36; TEMP 36.1–36.9; O2SAT 97–100
[2022-05-24] MEDS: Nystatin Powder 15gm Bottle 1 APPLIC TOPICAL ×3 (04:57→22:25)
[2022-05-24] MEDS: Ondansetron 4 MG/2 ML Vial IV ×2 (04:57→23:00)
[2022-05-24] MEDS: 0.9% Saline Lock 10 ML Syringe IV ×4 (05:03→21:59)
[2022-05-24] MEDS: Furosemide 20 MG/2 ML VIAL IV ×2 (06:02→13:47)
[2022-05-24 06:04] LABS: Absolute Lymphocyte Count 2.01 X10^3/uL (0.83-4.51); Absolute Neutrophil Count 5.9 X10^3/uL (2.0-7.7); Basophil# 0.03 X10^3/uL; Basophil% 0.3 % (0-1); Eosinophil# 0.11 X10^3/uL; Eosinophils% 1.2 % (0-5); Hematocrit 38.3 % (40-54); Hemoglobin 11.3 g/dL (13.0-16.5); Lymphocyte # 2.01 X10^3/ul (0.83-4.51); Lymphocyte % 22.6 % (19-41); Mean Corp Hgb Conc 29.5 g/dL (32-36); Mean Corpuscular Hgb 24.1 pg (27.0-32.0); Mean Corpuscular Volume 81.8 fL (80-94); Mean Platelet Vol. 12.4 fl (6.2-12.0); Monocyte# 0.81 X10^3/uL; Monocyte% 9.1 % (0-10); NRBC Flagged by Analyzer 0.4 % (0-5); Neutrophil # 5.89 X10^3/uL (2.7-7.7); Neutrophil % 66.4 % (47-70); Platelet Count 259 K/mm3 (150-450); RBC Distribution Width CV 19.4 % (11.6-14.6); RBC Distribution Width SD 57.1 fl (35.1-43.9); Red Blood Count 4.68 M/mm3 (4.6-6.2); White Blood Count 8.9 K/mm3 (4.4-11.0)
[2022-05-24 06:46] LABS: Anion Gap 6 (5-15); BUN 20 mg/dL (7-18); BUN/Creat Ratio 20.3 RATIO (10-20); Chloride 106 mmol/L (98-107); Creatinine, Serum 0.98 mg/dL (0.70-1.30); EST Glomerular Filtration Rate 80 mL/min (>60); Est Glom Filt Rate - Afr Amer 97 mL/min (>60); Estimated Creatinine Clearance 75.77 ml/min; Glucose 68 mg/dL (74-106); Potassium 4.4 mmol/L (3.5-5.1); Sodium Level 137 mmol/L (136-145)
[2022-05-24 06:47] LABS: International Normalized Ratio 2.6; Prothrombin Time (Protime)PT. 27.7 SECONDS (11.7-14.9)
[2022-05-24] MEDS: Albuterol 2.5 MG/3 ML VIAL.NEB. INHALATION ×2 (07:02→12:27)
[2022-05-24] MEDS: Menthol/Lanolin/Calamine/Znox 113 GM Tube 1 APPLIC TOPICAL ×4 (07:49→22:26)
[2022-05-24] MEDS: Gabapentin 100 MG Capsule PO (07:49)
[2022-05-24] MEDS: Glucerna Shake 120 ML LIQUID PO ×2 (07:49→12:01)
[2022-05-24] MEDS: Potassium Chloride Oral Tablet 20 MEQ PO (07:50)
[2022-05-24] MEDS: Furosemide 40 MG Tablet PO (07:50)
[2022-05-24] MEDS: Aspirin E.C. 81 MG Tablet PO (07:50)
[2022-05-24] MEDS: DOXEPIN HCL 50 MG CAPSULE PO (07:50)
[2022-05-24 08:05] LABS: Bedside Glucose 51 mg/dL (74-106)
[2022-05-24 09:12] LABS: Glucose 79 mg/dL (74-106)
[2022-05-24 10:15] LABS: Bedside Glucose 56 mg/dL (74-106)
[2022-05-24 10:15] LABS: Bedside Glucose 105 mg/dL (74-106)
[2022-05-24 10:15] LABS: Bedside Glucose 39 mg/dL (74-106)
[2022-05-24 10:15] LABS: Bedside Glucose 51 mg/dL (74-106)
--- NOTE | 2022-05-24 10:18 | PN.HOSP_ITS ---
Subjective Subjective Patient seen and examined. He was noted to be hypoglycemic today with blood sugar down in the 50s. He says he didnt eat very well yesterday. He denies any dizziness and lightheadedness, nausea, vomiting or diarrhea. Review of systems is otherwise negative. Objective Data Objective Data Vital Signs: Vital Signs Temp Pulse Resp BP Pulse Ox O2 Del Method O2 Flow Rate 98.2 F 73 24 H 102/90 H 97 Nasal Cannula 2 05/24/22 08:52 05/24/22 08:52 05/24/22 08:52 05/24/22 08:52 05/24/22 08:52 05/24/22 08:52 05/24/22 08:52 Oxygen Flow Rate (L/min) 2 Oxygen Delivery Method Nasal Cannula Weight: 217 lb 6.012 oz Body Mass Index (BMI) 29.9 Intake & Output: Intake and Output for Last 24 Hours 05/23/22 05/23/22 05/24/22 00:59 23:59 23:59 Intake Total 726.67 / 726.67 Output Total 375 / 375 Balance 351.67 / 351.67 Lab / Micro Data Result Diagrams: 05/24/22 04:19 05/24/22 08:58 Labs: Laboratory Results - last 24 hr 05/23/22 11:23: POC Glucose 171 H 05/23/22 16:11: POC Glucose 215 H 05/23/22 16:12: PT 34.0 H, INR 3.4 05/23/22 22:13: POC Glucose 106 05/24/22 04:19: WBC 8.9, RBC 4.68, Hgb 11.3 L, Hct 38.3 L, MCV 81.8, MCH 24.1 L, MCHC 29.5 L, RDW Std Deviation 57.1 H, RDW Coeff of Estrada 19.4 H, Plt Count 259, MPV 12.4 H, Immature Gran % (Auto) 0.400, Neut % (Auto) 66.4, Lymph % (Auto) 22.6, Tyrrell % (Auto) 9.1, Eos % (Auto) 1.2, Baso % (Auto) 0.3, Absolute Neuts (auto) 5.9, Absolute Lymphs (auto) 2.01, Nucleated RBC % 0.4 05/24/22 04:19: Sodium 137, Potassium 4.4, Chloride 106, Carbon Dioxide 25.0, Anion Gap 6, BUN 20 H, Creatinine 0.98, Estim Creat Clear Calc 75.77, Est GFR (MDRD) Af Amer 97, Est GFR (MDRD) Non-Af 80, BUN/Creatinine Ratio 20.3 H, Glucose 68 L, Calcium 8.0 L 05/24/22 04:19: PT 27.7 H, INR 2.6 05/24/22 07:42: POC Glucose 51 L 05/24/22 08:38: POC Glucose 39 L* 05/24/22 08:58: Glucose 79 05/24/22 09:03: POC Glucose 56 L 05/24/22 09:27: POC Glucose 51 L 05/24/22 09:57: POC Glucose 105 Physical Exam Const alert, oriented x3 and no apparent distress Constitutional Narrative: frail HEENT head/scalp atraumatic, moist oral mucous membranes and oropharynx normal Head and Scalp: normocephalic Mouth: oral and palatal mucosa normal Eyes PERRL, EOMs intact bilaterally and conjunctivae normal Neck no lymphadenopathy and supple Resp normal respiratory effort, no retractions and no use of accessory muscles Cardio regular rate, regular rhythm, S1 normal heart sound, S2 normal heart sound and no murmurs GI normal to inspection, nondistended, normoactive bowel sounds, soft to palpation and non-tender Extremity normal to inspection and full ROM Skin Skin Narrative: yeast infection in groin Neuro oriented x3, CN's II-XII intact bilaterally and moves all extremities Sensorium / Orientation: awake and alert Psych affect normal Assessment & Plan Assessment/Plan (1) Adult failure to thrive: (2) Generalized weakness: PLAN: Plan #Debility with failure to thrive * unable to care for himself at home. Keeps falling at home * PT/OT on board. Fall precautions. * * #Lactic acidosis * likely due to dehydration and reduced intake * gently hydrate with IVF * encourage oral hydration #Kristal infection * Is extensive yeast infection in the groin. On nystatin powder. * * #UTI * Urine has 2+ bacteria and 500 leukocyte esterase * In light of his debility and failure to thrive, UTI may be playing a role. I therefore think it is reasonable to start treating patient with IV ceftriaxone for UTI * Urine cultures pending * #Hypoglycemia * blood sugars running low today * hold insulin today * start D5W @ 75cc/hr * ISS. Accuchecks ACHS * patient encouraged to eat well. * #Type 2 diabetes mellitus * On lantus 25 units daily. On insulin sliding scale. * lantus on hold o/a of hypoglycemi * Accu-Cheks ACH S. 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 * Not in exacerbation. * Metoprolol and lisinopril as well as Lasix. #COPD: Not in exacerbation. On breathing treatments with bronchodilators. #PAD/PVOD: s/p fem pop bypass with peripheral PCI. On coumadin. #History of aortic valve replacement: on coumadin. INR is therapeutic #Hyperlipidemia: on statin #HYpertension: on lisinopril and metoprolol; hold o/a of hypotension. #BEATRICE: on CPAP qhs DVT prophylaxis: on coumadin. Charges/Coding Visit Charges Inpatient E&M: 98932 Subs Hosp L3
[2022-05-24] MEDS: Ceftriaxone 1 GM/50 ML BAG IV (10:59)
[2022-05-24 11:30] LABS: Bedside Glucose 98 mg/dL (74-106)
--- NOTE | 2022-05-24 12:25 | RAD_ITS ---
STUDY: X-RAY CHEST REASON FOR EXAM: Male, 71 years old. SOB TECHNIQUE: Single AP portable view of the chest. COMPARISON: Comparison is made with prior study dated 05/22/2022. FINDINGS: EKG electrodes are seen. Since prior study, there has been an increase in the right pleural-parenchymal changes. There is mild cardiac enlargement. Normal mediastinum and thu. Normal visualized pulmonary arteries. Normal visualized aortic arch and descending thoracic aorta. There are diffuse degenerative changes of the visualized thoracic spine. Normal visualized ribs, clavicles, and shoulders. There is no demonstrated abnormality of the visualized soft tissue structures of the upper abdomen. RAD/Chest 1 View (Portable) IMPRESSION: Progressive increase in the right pleural-parenchymal changes. Electronically Signed: Lázaro Archer MD at 12:43 EST ,
--- NOTE | 2022-05-24 12:27 | NURSING ---
3502 occupational therapy supervisor updated on conversation regarding transfer with dr. espana. occupational therapy supervisor updated on unit being transferred to. xray and cps bedside
--- NOTE | 2022-05-24 13:34 | NURSING ---
patient transported to PCU with primary RN on tele monitor, cspo2, ivf. Primary RN Annie bedside updated.
[2022-05-24 13:55] LABS: Bedside Glucose 146 mg/dL (74-106)
[2022-05-24 13:55] LABS: Bedside Glucose 91 mg/dL (74-106)
[2022-05-24 14:20] LABS: Allen Test Positive; Base Excess -9 mmol/L (-2 to +2); Bicarbonate 15.6 mmol/L (22-26); Blood Gas Specimen Type ART; O2 Delivery Device Cannula; PO2 30 mmHG (75-100); SITE R Radial; SO2 59 % (95-99); Total Carbon Dioxide 16 mmol/L; pCO2 25.6 mmHg (35-45); pH 7.39 (7.35-7.45)
--- NOTE | 2022-05-24 14:34 | CPS ---
Critical PaO2 due to venous sample being obtained, Dr. Nance aware
[2022-05-24 16:40] LABS: Bedside Glucose 156 mg/dL (74-106)
--- NOTE | 2022-05-24 17:16 | RAD_ITS ---
EXAM: XR CHEST, 2 VIEWS CLINICAL INDICATION: shortness of breath TECHNIQUE: Frontal and lateral views of the chest. This report was created using [employer] report generation technology. COMPARISON: 05/24/2022 at 1219 hours. FINDINGS: LUNGS AND PLEURAL SPACES: See below. HEART: Unremarkable. Cardiac silhouette not enlarged. MEDIASTINUM: Central airways and mediastinal contour are unremarkable. BONES/JOINTS: Right-sided effusion and right lower lobe airspace disease persists and is unchanged. SOFT TISSUES: Unremarkable. RAD/Chest PA and Lateral IMPRESSION: No significant change in right-sided effusion with right lower lobe atelectasis or pneumonia. Electronically Signed: Scottie Espinoza MD at 17:51 EST ,
[2022-05-24] MEDS: Furosemide 40 MG/4 ML Vial IV (18:15)
[2022-05-24] MEDS: Insulin Lispro 100 UNIT/ML INSULN.PEN SC (21:56)
[2022-05-24] MEDS: Atorvastatin Calcium 40 MG Tablet PO (22:27)
[2022-05-25] VITALS (18 sets, daily range): BP systolic 105–139; BP diastolic 67–94; PULSE 75–88; RESP 16–30; TEMP 36.2–36.9; O2SAT 96–100
[2022-05-25 00:06] LABS: Bedside Glucose 223 mg/dL (74-106)
[2022-05-25] MEDS: proCHLORPERazine 10 MG/2 ML Vial 5 MG IV (01:55)
[2022-05-25] MEDS: 0.9% Saline Lock 10 ML Syringe IV ×3 (01:58→21:48)
[2022-05-25] MEDS: Furosemide 20 MG/2 ML VIAL IV (02:52)
[2022-05-25] MEDS: Nystatin Powder 15gm Bottle 1 APPLIC TOPICAL ×3 (06:36→21:48)
[2022-05-25] MEDS: Insulin Lispro 100 UNIT/ML INSULN.PEN SC ×4 (06:36→22:01)
[2022-05-25 07:15] LABS: Bedside Glucose 216 mg/dL (74-106)
[2022-05-25 07:27] LABS: Absolute Lymphocyte Count 1.52 X10^3/uL (0.83-4.51); Absolute Neutrophil Count 7.6 X10^3/uL (2.0-7.7); Basophil# 0.02 X10^3/uL; Basophil% 0.2 % (0-1); Eosinophil# 0.02 X10^3/uL; Eosinophils% 0.2 % (0-5); Hematocrit 33.6 % (40-54); Hemoglobin 10.2 g/dL (13.0-16.5); Lymphocyte # 1.52 X10^3/ul (0.83-4.51); Lymphocyte % 14.8 % (19-41); Mean Corp Hgb Conc 30.4 g/dL (32-36); Mean Corpuscular Hgb 24.3 pg (27.0-32.0); Mean Corpuscular Volume 80.2 fL (80-94); Monocyte# 1.02 X10^3/uL; NRBC Flagged by Analyzer 1.2 % (0-5); Neutrophil % 74.1 % (47-70); Platelet Count 153 K/mm3 (150-450); RBC Distribution Width CV 19.7 % (11.6-14.6); RBC Distribution Width SD 56.2 fl (35.1-43.9); Red Blood Count 4.19 M/mm3 (4.6-6.2); White Blood Count 10.3 K/mm3 (4.4-11.0)
[2022-05-25 07:33] LABS: International Normalized Ratio 3.3; Prothrombin Time (Protime)PT. 33.1 SECONDS (11.7-14.9)
[2022-05-25 07:53] LABS: Anion Gap 6 (5-15); BUN 36 mg/dL (7-18); BUN/Creat Ratio 20.2 RATIO (10-20); Calcium,Total 8.1 mg/dL (8.5-10.1); Chloride 101 mmol/L (98-107); Creatinine, Serum 1.78 mg/dL (0.70-1.30); EST Glomerular Filtration Rate 40 mL/min (>60); Est Glom Filt Rate - Afr Amer 49 mL/min (>60); Estimated Creatinine Clearance 41.72 ml/min; Glucose 199 mg/dL (74-106); Potassium 5.7 mmol/L (3.5-5.1); Sodium Level 130 mmol/L (136-145)
--- NOTE | 2022-05-25 08:48 | CASEMGMT ---
SW reviewed patient's PT/OT notes and they are recommending senior living facility. SW went to patient's room. Patient was sleeping, but did wake up when SW said his name. SW introduced self and role at [facility]. Patient confirmed he wants to go to a SNF. Patient said there is a problem. Patient said his car and his friend are in the parking lot. SW asked patient if it was okay if SW spoke with Mariam, who is listed on his contact list. Patient said that is fine. SW then went to Mariam's room as Mariam is also a patient at [facility]. SW asked Mariam if it is okay if KALANI lets Sky know that she is a patient here in the hospital. Mariam said that is fine. Mariam said she is aware he is a patient here also. Mariam said she is hoping he would come to [facility]. SW will check back with patient to find out which SNF and to let him know Mariam is in the hospital. Ashlyn ROBERTS
--- NOTE | 2022-05-25 09:40 | CASEMGMT ---
SW reviewed patient's PT/OT notes and they are recommending senior living facility. SW went to patient's room. Patient was sleeping, but did wake up when SW said his name. SW introduced self and role at [facility]. Patient confirmed he wants to go to a SNF. Patient said there is a problem. Patient said his car and his friend are in the parking lot. SW asked patient if it was okay if SW spoke with Mariam, who is listed on his contact list. Patient said that is fine. SW will check back with patient to find out which SNF and to let him know Mariam is in the hospital. Ashlyn ROBERTS
--- NOTE | 2022-05-25 10:05 | CASEMGMT ---
KALANI went to patient's room. KALANI explained to patient that Mariam is a patient in the hospital. KALANI told patient that Mariam is going to go to [facility] and she was hoping he would go there too. Sky said he would go to [facility] and if not there then [facility]. KALANI told patient KALANI will work on referral. KALANI notified Deb d/c schedule planning manager and asked that she make referral. Ashlyn ROBERTS
--- NOTE | 2022-05-25 10:08 | CASEMGMT ---
Discharge Java Websphere Developer This marketing underwriter sent referral to Supriya at [facility] via [facility] [place]. Will follow up. Beth MORALES Delinquent Notice Machine Operator
--- NOTE | 2022-05-25 10:46 | PN.HOSP_ITS ---
Subjective Subjective Patient seen and examined. He still remains frail and lethargic. He was transferred down to PCU yesterday o/a of increased oxygen requirements. He was started on IV diuretics. He required up to 5L of oxygen. He is now down to 2L. Objective Data Objective Data Vital Signs: Vital Signs Temp Pulse Resp BP Pulse Ox O2 Del Method O2 Flow Rate 98.5 F 87 24 H 131/84 H 100 Nasal Cannula 2 05/25/22 08:03 05/25/22 08:03 05/25/22 08:03 05/25/22 08:03 05/25/22 08:15 05/25/22 08:15 05/25/22 08:15 Oxygen Flow Rate (L/min) 2 Oxygen Delivery Method Nasal Cannula Weight: 226 lb 3.108 oz Body Mass Index (BMI) 29.9 Intake & Output: Intake and Output for Last 24 Hours 05/23/22 05/24/22 05/25/22 23:59 23:59 23:59 Intake Total 2310.42 / 2360.42 367.5 / 367.5 Output Total 400 / 400 150 / 150 Balance 1910.42 / 1960.42 217.5 / 217.5 Lab / Micro Data Result Diagrams: 05/25/22 05:55 05/25/22 05:55 Labs: Laboratory Results - last 24 hr 05/24/22 10:50: POC Glucose 98 05/24/22 12:03: POC Glucose 91 05/24/22 12:35: POC Glucose 146 H 05/24/22 16:04: POC Glucose 156 H 05/24/22 21:54: POC Glucose 223 H 05/25/22 05:55: WBC 10.3, RBC 4.19 L, Hgb 10.2 L, Hct 33.6 L, MCV 80.2, MCH 24.3 L, MCHC 30.4 L, RDW Std Deviation 56.2 H, RDW Coeff of Estrada 19.7 H, Plt Count 153, Immature Gran % (Auto) 0.700, Neut % (Auto) 74.1 H, Lymph % (Auto) 14.8 L, Oxford % (Auto) 10.0, Eos % (Auto) 0.2, Baso % (Auto) 0.2, Absolute Neuts (auto) 7.6, Absolute Lymphs (auto) 1.52, Nucleated RBC % 1.2 05/25/22 05:55: Sodium 130 L, Potassium 5.7 H, Chloride 101, Carbon Dioxide 23.0, Anion Gap 6, BUN 36 H, Creatinine 1.78 H, Estim Creat Clear Calc 41.72, Est GFR (MDRD) Af Amer 49 L, Est GFR (MDRD) Non-Af 40 L, BUN/Creatinine Ratio 20.2 H, Glucose 199 H, Calcium 8.1 L 05/25/22 05:55: PT 33.1 H, INR 3.3 05/25/22 06:34: POC Glucose 216 H Micro: Microbiology 05/23/22 07:50 Urine, Random Urine Culture - Final Mixed Gram Positive Organisms ABG Data ABG results: ABG 05/24/22 14:14 Specimen Type ART Sample Site R Radial pH 7.39 Bicarbonate Actual 15.6 L Total CO2 16 Base Excess -9 L O2 Saturation 59 L ABG pCO2 25.6 L ABG pO2 30 L* Caesar Test Positive O2 Delivery Device Cannula Liter Flow 5.0 Crit Call To/Read Back Yes Radiography Diagnostic Testing: Radiology Impression Chest X-Ray 05/24/22 12:25 IMPRESSION: Progressive increase in the right pleural-parenchymal changes. Electronically Signed: Lázaro Archer MD at 12:43 EST , Chest X-Ray 05/24/22 17:16 IMPRESSION: No significant change in right-sided effusion with right lower lobe atelectasis or pneumonia. Electronically Signed: Scottie Espinoza MD at 17:51 EST , Physical Exam Const alert, oriented x3 and no apparent distress Constitutional Narrative: frail HEENT head/scalp atraumatic, moist oral mucous membranes and oropharynx normal Head and Scalp: normocephalic Mouth: oral and palatal mucosa normal Eyes PERRL, EOMs intact bilaterally and conjunctivae normal Neck no lymphadenopathy and supple Resp Resp Narrative: diminished breath sounds bibasally, few crackles. On 2L. Cardio regular rate, regular rhythm, S1 normal heart sound, S2 normal heart sound and no murmurs GI normal to inspection, nondistended, normoactive bowel sounds, soft to palpation and non-tender Extremity normal to inspection, full ROM and no clubbing, cyanosis or edema Skin Skin Narrative: yeast infection in groin Neuro oriented x3, CN's II-XII intact bilaterally and moves all extremities Sensorium / Orientation: awake and alert Motor Exam: strength 5/5 throughout Psych Psych Narrative: lethargic Assessment & Plan Assessment/Plan (1) Adult failure to thrive: (2) Generalized weakness: PLAN: Plan #Acute hypoxic respiratory failure likely due to acute on chronic combined heart failure * became more short of breath, requiring increased amount of oxygen * required 5L of oxygen. Now down to 2L of oxygen * was thought to be due to fluid overload. * now being diuresed with IV lasix. * monitor intake and output. Fluid restriction to 1500cc daily * titrate oxygen to maintain sats >90%. #Debility with failure to thrive * unable to care for himself at home. Keeps falling at home * PT/OT on board. Fall precautions. * #ZOFIA * Cr is up to 1.78, was 0.98 yesterday * may be due to lasix, as patient was started on lasix yesterday * will dc lasix. Likely pre-renal due to decreased intake. * check urine electrolytes. hold off on given IVF for now due to fluid overload. * #Lactic acidosis * likely due to dehydration and reduced intake * IVF dc'd due to fluid overload. * encourage oral hydration #Kristal infection * Is extensive yeast infection in the groin. On nystatin powder. * #UTI * Urine has 2+ bacteria and 500 leukocyte esterase * In light of his debility and failure to thrive, UTI may be playing a role. I therefore think it is reasonable to start treating patient with IV ceftriaxone for UTI * Urine cultures growing mixed gram positive organisms. * will dc IV ceftriaxone. * #Hypoglycemia * resolved. * lantus on hold. * ISS. Accuchecks ACHS * patient encouraged to eat well. * #Hyperkalemia: * K is 5.7. Will give kayexalate. * Hold lisinopril. * trend potassium * #Type 2 diabetes mellitus * On lantus 25 units daily. On insulin sliding scale. * lantus on hold o/a of hypoglycemia * Accu-Cheks ACHS. 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 * * Metoprolol and lisinopril as well as Lasix. #COPD: Not in exacerbation. On breathing treatments with bronchodilators. #PAD/PVOD: s/p fem pop bypass with peripheral PCI. On coumadin. #History of aortic valve replacement: on coumadin. INR is therapeutic at 3.3. #Hyperlipidemia: on statin #HYpertension: on lisinopril and metoprolol; hold o/a of hypotension. #BEATRICE: on CPAP qhs DVT prophylaxis: on coumadin. INR is therapeutic Charges/Coding Visit Charges Inpatient E&M: 87673 Subs Hosp L3
--- NOTE | 2022-05-25 11:08 | CASEMGMT ---
Discharge Special Day Class Teacher Supriya from [facility] reached out. Patient has been accepted at the [facility]. Pre-cert has been started. Beth MORALES Panel Installer
[2022-05-25] MEDS: Glucerna Shake 120 ML LIQUID PO ×2 (11:57→16:59)
[2022-05-25] MEDS: Gabapentin 100 MG Capsule PO (11:57)
[2022-05-25] MEDS: Furosemide 20 MG Tablet PO (11:59)
[2022-05-25] MEDS: Aspirin E.C. 81 MG Tablet PO (11:59)
[2022-05-25] MEDS: Menthol/Lanolin/Calamine/Znox 113 GM Tube 1 APPLIC TOPICAL ×4 (11:59→21:47)
[2022-05-25] MEDS: Metoprolol(XL)Succ 25 MG Tablet 75 MG PO (12:00)
[2022-05-25] MEDS: Sodium Polystyrene Sulfonate 15 GM/60 ML UDC 30 GM PO (14:34)
[2022-05-25 14:36] LABS: Bedside Glucose 228 mg/dL (74-106)
[2022-05-25 18:40] LABS: Urea Nitrogen, Urine 362 mg/dL (NO RANGE EST.)
--- NOTE | 2022-05-25 19:12 | NURSING ---
Charting reviewed with Anatoly Braswell RN
[2022-05-25 19:26] LABS: Bedside Glucose 237 mg/dL (74-106)
[2022-05-25] MEDS: Atorvastatin Calcium 40 MG Tablet PO (21:48)
[2022-05-25 22:25] LABS: Bedside Glucose 314 mg/dL (74-106)
[2022-05-26] VITALS (11 sets, daily range): BP systolic 105–113; BP diastolic 62–71; PULSE 75–88; RESP 18–22; TEMP 36.4–36.8; O2SAT 97–99
--- NOTE | 2022-05-26 03:09 | NURSING ---
Pt had a 5 beat run vtach
[2022-05-26 05:28] LABS: Absolute Lymphocyte Count 1.04 X10^3/uL (0.83-4.51); Absolute Neutrophil Count 5.8 X10^3/uL (2.0-7.7); Basophil# 0.01 X10^3/uL; Basophil% 0.1 % (0-1); Eosinophil# 0.06 X10^3/uL; Eosinophils% 0.8 % (0-5); Hemoglobin 10.2 g/dL (13.0-16.5); Lymphocyte # 1.04 X10^3/ul (0.83-4.51); Lymphocyte % 13.5 % (19-41); Mean Corp Hgb Conc 30.9 g/dL (32-36); Mean Corpuscular Hgb 24.2 pg (27.0-32.0); Mean Corpuscular Volume 78.4 fL (80-94); Monocyte# 0.73 X10^3/uL; Monocyte% 9.5 % (0-10); NRBC Flagged by Analyzer 0.9 % (0-5); Neutrophil # 5.79 X10^3/uL (2.7-7.7); Neutrophil % 75.4 % (47-70); Platelet Count 118 K/mm3 (150-450); RBC Distribution Width CV 19.9 % (11.6-14.6); RBC Distribution Width SD 55.8 fl (35.1-43.9); Red Blood Count 4.21 M/mm3 (4.6-6.2); White Blood Count 7.7 K/mm3 (4.4-11.0)
[2022-05-26 05:41] LABS: International Normalized Ratio 2.5; Prothrombin Time (Protime)PT. 26.5 SECONDS (11.7-14.9)
--- NOTE | 2022-05-26 05:48 | NURSING ---
tipple tender charting reviewed and approve
[2022-05-26 05:53] LABS: Anion Gap 8 (5-15); BUN 34 mg/dL (7-18); BUN/Creat Ratio 26.4 RATIO (10-20); Calcium,Total 7.4 mg/dL (8.5-10.1); Chloride 102 mmol/L (98-107); Creatinine, Serum 1.29 mg/dL (0.70-1.30); EST Glomerular Filtration Rate 59 mL/min (>60); Est Glom Filt Rate - Afr Amer 71 mL/min (>60); Estimated Creatinine Clearance 57.56 ml/min; Glucose 283 mg/dL (74-106); Potassium 4.2 mmol/L (3.5-5.1); Sodium Level 132 mmol/L (136-145)
[2022-05-26] MEDS: Insulin Lispro 100 UNIT/ML INSULN.PEN SC ×2 (06:36→12:02)
[2022-05-26] MEDS: Nystatin Powder 15gm Bottle 1 APPLIC TOPICAL ×2 (06:36→14:55)
[2022-05-26 07:00] LABS: Bedside Glucose 298 mg/dL (74-106)
--- NOTE | 2022-05-26 07:38 | CASEMGMT ---
SW received notification that patient was approved to go [facility] via [facility]. SW will notify physician, patient, and RN. Plan: d/c to [facility] under skilled level of care Ashlyn ROBERTS
[2022-05-26] MEDS: Furosemide 20 MG Tablet PO (08:12)
[2022-05-26] MEDS: Gabapentin 100 MG Capsule PO (08:12)
[2022-05-26] MEDS: Aspirin E.C. 81 MG Tablet PO (08:12)
[2022-05-26] MEDS: Metoprolol(XL)Succ 25 MG Tablet 75 MG PO (08:13)
[2022-05-26] MEDS: Menthol/Lanolin/Calamine/Znox 113 GM Tube 1 APPLIC TOPICAL ×2 (08:14→14:54)
--- NOTE | 2022-05-26 11:38 | TREXTCAR_ITS ---
Diet Diet Order/Speech Therapy: 05/24/22 17:30 Diet: Regular - General Food consistency:: Mechanical (Minced/Moist) Liquid Consistency:: Regular/Thin Dietary Modifications:: Cardiac / Heart Healthy Is pt able to select menu?: Yes Diet Comments: 1:1 sup Routine Orders/Code Status Routine Lab Work: CBC and BMP Code Status: DNRCC-A Wound(s) left knee: Wound Type: Abrasion Therapies Physical Therapy: Eval and Treat Occupational Therapy: Eval and Treat Problem/Diagnosis (1) Adult failure to thrive: Status: Acute Code(s): R62.7 - Adult failure to thrive (2) Generalized weakness: Status: Acute Code(s): R53.1 - Weakness Allergies/Procedures Done in Hospital Allergies No Known Allergies Allergy (Verified 05/22/22 14:36) Procedures: None Type of Care/Length of Stay Estimated LOS: Convalescent Care Less Than 30 days Type of Care Needed: Skilled Rehab Potential: Good Prognosis: Good Additional Orders/Day of Discharge Day of Discharge: 05/26/22 Dietary and Speech Recommendations Dietitian Recommendations/Changes: Will continue 1800 yinka Consistent CHO diet - and add Cardiac diet restriction d/t pmhx and issues w/ edema Will continue ONS at [facility] to help preserve skin integrity Discharge Plan Admission Admit Date/Time: 05/23/22 16:16 Attending Provider: Fernandez Rosario Primary Care Provider: Suarabh Hernandez Chi Consulting Providers: Ale Hidalgo ; Cami Nance Discharge Orders/Prescriptions Prescriptions: New aspirin 81 mg Tablet,Delayed Release (Dr/Ec) 81 mg PO DAILY Qty: 0 0RF furosemide 20 mg Tablet 20 mg PO DAILY Qty: 0 0RF Continued metformin 500 mg tablet 500 mg PO BIDCM metoprolol succinate 25 mg tablet extended release 24 hr 75 mg PO DAILY Tradjenta 5 mg tablet 5 mg PO DAILY lisinopril 5 mg tablet 5 mg PO DAILY gabapentin 100 mg capsule 100 mg PO BID Label Comments: TAKE 2 CAPSULES BY MOUTH EVERY 12 HOURS doxepin 50 mg capsule 50 mg PO DAILY atorvastatin 40 mg Tablet 40 mg PO QHS potassium chloride 20 mEq Tablet,Er Particles/Crystals 20 meq PO DAILY warfarin [Jantoven] 6 mg Tablet 6 mg PO DAILY Qty: 30 1RF Rx Instructions: Hold if INR more than 3.5 insulin aspart U-100 [Novolog Flexpen U-100 Insulin] 100 unit/mL (3 mL) insulin pen 10 unit SUBCUT BIDCM Qty: 3 0RF Rx Instructions: Hold if glucose less than 130 mg/dl insulin glargine [Lantus Solostar U-100 Insulin] 100 unit/mL (3 mL) insulin pen 25 unit SUBCUT DAILY Qty: 3 0RF Rx Instructions: Hold if glucose less than 130 mg/dl diazepam 5 mg tablet 5 mg PO Q8 PRN (Reason: Muscle Spasm) Qty: 12 0RF Referrals / Follow Up: Saurabh Hernandez Chi, MD [Primary Care Provider] - Disposition Disposition (needs filled in before D/C Order can be placed): Senior Living Facility
--- NOTE | 2022-05-26 11:48 | PHA.DC.MR ---
Pharmacy Service has performed discharge medication reconciliation for this patient. The patient's discharge medication list was reviewed for discrepancies and discrepancies were resolved. Home Medications metformin 500 mg tablet 500 mg PO BIDCM diabetes 05/31/20 atorvastatin 40 mg tablet 40 mg PO QHS cholesterol 11/12/20 potassium chloride 20 mEq tablet,extended release(part/cryst) 20 meq PO DAILY suipplement 12/23/20 linagliptin 5 mg tablet (Tradjenta) 5 mg PO DAILY 10/08/21 lisinopril 5 mg tablet 5 mg PO DAILY 10/08/21 metoprolol succinate 25 mg tablet,extended release 24 hr 75 mg PO DAILY 10/08/21 doxepin 50 mg capsule 50 mg PO DAILY 02/11/22 gabapentin 100 mg capsule 100 mg PO BID 02/11/22 insulin aspart U-100 100 unit/mL (3 mL) subcutaneous pen (Novolog Flexpen U-100 Insulin aspart) 10 unit (0.1 mL) subcut BIDCM diabetes #3 mL 02/12/22 insulin glargine 100 unit/mL (3 mL) subcutaneous pen (Lantus Solostar U-100 Insulin) 25 unit (0.25 mL) subcut DAILY DM #3 mL 02/12/22 warfarin 6 mg tablet (Jantoven) 6 mg PO DAILY #30 tabs 02/12/22 diazepam 5 mg tablet 5 mg PO Q8 PRN Muscle Spasm #12 tabs 03/18/22 aspirin 81 mg tablet,delayed release 81 mg PO DAILY #0 tabs 05/26/22 furosemide 20 mg tablet 20 mg PO DAILY #0 tabs 05/26/22
[2022-05-26] MEDS: Glucerna Shake 120 ML LIQUID PO (12:04)
[2022-05-26 12:35] LABS: Bedside Glucose 261 mg/dL (74-106)
--- NOTE | 2022-05-26 13:59 | PCM.DC.SUM ---
Providers Date of Admission: 05/23/22 Primary Care Physician: Dr. Saurabh Hernandez MD Reason For Visit: FTT ADULT, FALL Diagnosis Discharge Diagnosis (1) Adult failure to thrive: Status: Acute Code(s): R62.7 - Adult failure to thrive (2) Generalized weakness: Status: Acute Code(s): R53.1 - Weakness Medications at Discharge Home Medications metformin 500 mg tablet 500 mg PO BIDCM diabetes 05/31/20 atorvastatin 40 mg tablet 40 mg PO QHS cholesterol 11/12/20 potassium chloride 20 mEq tablet,extended release(part/cryst) 20 meq PO DAILY suipplement 12/23/20 linagliptin 5 mg tablet (Tradjenta) 5 mg PO DAILY 10/08/21 lisinopril 5 mg tablet 5 mg PO DAILY 10/08/21 metoprolol succinate 25 mg tablet,extended release 24 hr 75 mg PO DAILY 10/08/21 doxepin 50 mg capsule 50 mg PO DAILY 02/11/22 gabapentin 100 mg capsule 100 mg PO BID 02/11/22 insulin aspart U-100 100 unit/mL (3 mL) subcutaneous pen (Novolog Flexpen U-100 Insulin aspart) 10 unit (0.1 mL) subcut BIDCM diabetes #3 mL 02/12/22 insulin glargine 100 unit/mL (3 mL) subcutaneous pen (Lantus Solostar U-100 Insulin) 25 unit (0.25 mL) subcut DAILY DM #3 mL 02/12/22 warfarin 6 mg tablet (Jantoven) 6 mg PO DAILY #30 tabs 02/12/22 diazepam 5 mg tablet 5 mg PO Q8 PRN Muscle Spasm #12 tabs 03/18/22 aspirin 81 mg tablet,delayed release 81 mg PO DAILY #0 tabs 05/26/22 furosemide 20 mg tablet 20 mg PO DAILY #0 tabs 05/26/22 Hospital Course Operations None Summary of Care Provided Minutes Spent on Discharge: 39 Hospital Course: Per HPI: The patient is a 71 y/o M w/ PMHx: Valvular heart disease, CAD, COPD, Chronic Systolic/Diastolic CHF/Ischemic Cardiomyopathy, HTN, HLD, GERD, Diabetes mellitus type II with PAD/PVOD/neuropathy, Tobacco use, BEATRICE who presents to the [facility] ED on 05/22/22 with history of progressively worsening fatigue, malaise, weakness and debility, noting difficulty caring for himself or even getting to the restroom prompting ED evaluation. Patient does report a fall on day of presentation secondary to his debility and weakness, landing on his L knee. He also reports notable groin/genital region red beefy rash. Work-up in the ED included T97.8, heart rate 110, BP 150/102, respiratory rate 16, 98% on room air, CBC with WC 7.8, hemoglobin 11.1, MCV 81.1, platelet 241 without marked shift, INR 3.9, CMP with sodium 135, glucose 339, lactic acid 2.6, T bili 1.60, alk phos 162 otherwise hepatic profile not marked, plain film of the left knee secondary to fall with degenerative changes with no acute abnormality, chest x-ray moderate R sided effusion, UA/UCx requested but pending upon evaluation. Hospital Course: 1. Debility with failure to thrive/ZOFIA/acute hypoxic respiratory failure secondary to acute on chronic combined heart failure?71-year-old male who is homeless and has no home support presented to the hospital after a fall with weakness and an inability to complete ADLs. He did initially present with a possible UTI however cultures were mixed gram-positive organisms but he was given a couple doses of Rocephin. His ZOFIA has improved with the initiation of Lasix, and this was started secondary to acute hypoxic respiratory failure from fluid overload. He does not get significant medical care as an outpatient so he is currently not on Lasix prior to coming into the hospital. He has improved significantly from oxygen standpoint from fluid overload secondary to the initiation of IV Lasix. Transitioned him off of IV Lasix yesterday to p.o. Lasix today at 20 mg daily. This could likely be adjusted as an outpatient at the long-term if necessary. I would recommend following his creatinine, it has improved from a peak of 1.78 down to 1.29. I discussed with him the plan for possible discharge today he expressed understanding of the risk benefits of going to the long-term and would like to go today. 2. Coronary artery disease status post CABG, COPD, peripheral artery disease, history of aortic valve replacement, hyperlipidemia, hypertension, BEATRICE, type 2 diabetes are all chronic medical conditions which complicate his care. His home medications were continued where appropriate Physical Exam Narrative General: Alert, Oriented x3, Cooperative, No apparent distress HEENT: Atraumatic, PERRLA, EOMI, Normocephalic Oral: Moist Mucosa Neck: Supple, No JVD Lungs: Diminished, Normal air movement, No rhonchi, No wheeze, No rales Cardiovascular: Regular rate, Regular Rhythm, Normal S1, Normal S2, No murmurs Abdomen: Soft, Non Tender, Non-Distended, No Hepato-splenomegaly Extremities: No edema, Capillary Refill Less than 3 Seconds Skin: No rashes, No breakdown Musculoskeletal: No Tenderness to Palpation of Joints or Extremities Neurological: Cranial nerves II-XII grossly intact, Motor Exam 5/5 strength throughout, Sensory exam intact to light touch and pain Psych/Mental Status: Normal Affect, Appropriate Weight / BMI Weight Weight: 232 lb 12.93 oz Body Mass Index (BMI) 29.9 ABG / Lab / Microbiology Data Result Diagrams: 05/26/22 04:24 05/26/22 04:24 Laboratory: Laboratory Results - last 24 hr 05/25/22 11:39: POC Glucose 228 H 05/25/22 16:57: POC Glucose 237 H 05/25/22 18:05: Urine Creatinine 36.80 05/25/22 18:05: Urine Urea Nitrogen 362 05/25/22 21:58: POC Glucose 314 H 05/26/22 04:24: WBC 7.7, RBC 4.21 L, Hgb 10.2 L, Hct 33.0 L, MCV 78.4 L, MCH 24.2 L, MCHC 30.9 L, RDW Std Deviation 55.8 H, RDW Coeff of Estrada 19.9 H, Plt Count 118 L, MPV TNP, Immature Gran % (Auto) 0.700, Neut % (Auto) 75.4 H, Lymph % (Auto) 13.5 L, [place] % (Auto) 9.5, Eos % (Auto) 0.8, Baso % (Auto) 0.1, Absolute Neuts (auto) 5.8, Absolute Lymphs (auto) 1.04, Nucleated RBC % 0.9 05/26/22 04:24: Sodium 132 L, Potassium 4.2, Chloride 102, Carbon Dioxide 22.0, Anion Gap 8, BUN 34 H, Creatinine 1.29, Estim Creat Clear Calc 57.56, Est GFR (MDRD) Af Amer 71, Est GFR (MDRD) Non-Af 59 L, BUN/Creatinine Ratio 26.4 H, Glucose 283 H, Calcium 7.4 L 05/26/22 04:24: PT 26.5 H, INR 2.5 05/26/22 06:34: POC Glucose 298 H 05/26/22 12:00: POC Glucose 261 H Microbiology: Microbiology 05/26/22 11:00 Nasal Secretion SARS-CoV-2 Antigen (Rapid) - Final 05/23/22 07:50 Urine, Random Urine Culture - Final Mixed Gram Positive Organisms Meaningful Use Info Meaningful Use Diagnoses (Choose all that apply): None applicable Discharge Plan Admission Admit Date/Time: 05/23/22 16:16 Attending Provider: Fernandez Rosario Primary Care Provider: Saurabh Hernandez Chi Consulting Providers: Ale Hidalgo ; Cami Nance Discharge Orders/Prescriptions Prescriptions: New aspirin 81 mg Tablet,Delayed Release (Dr/Ec) 81 mg PO DAILY Qty: 0 0RF furosemide 20 mg Tablet 20 mg PO DAILY Qty: 0 0RF Continued metformin 500 mg tablet 500 mg PO BIDCM metoprolol succinate 25 mg tablet extended release 24 hr 75 mg PO DAILY Tradjenta 5 mg tablet 5 mg PO DAILY lisinopril 5 mg tablet 5 mg PO DAILY gabapentin 100 mg capsule 100 mg PO BID Label Comments: TAKE 2 CAPSULES BY MOUTH EVERY 12 HOURS doxepin 50 mg capsule 50 mg PO DAILY atorvastatin 40 mg Tablet 40 mg PO QHS potassium chloride 20 mEq Tablet,Er Particles/Crystals 20 meq PO DAILY warfarin [Jantoven] 6 mg Tablet 6 mg PO DAILY Qty: 30 1RF Rx Instructions: Hold if INR more than 3.5 insulin aspart U-100 [Novolog Flexpen U-100 Insulin] 100 unit/mL (3 mL) insulin pen 10 unit SUBCUT BIDCM Qty: 3 0RF Rx Instructions: Hold if glucose less than 130 mg/dl insulin glargine [Lantus Solostar U-100 Insulin] 100 unit/mL (3 mL) insulin pen 25 unit SUBCUT DAILY Qty: 3 0RF Rx Instructions: Hold if glucose less than 130 mg/dl diazepam 5 mg tablet 5 mg PO Q8 PRN (Reason: Muscle Spasm) Qty: 12 0RF Referrals / Follow Up: Saurabh Hernandez Chi, MD [Primary Care Provider] - Disposition Disposition (needs filled in before D/C Order can be placed): [facility] Facility Charges/Coding Visit Charges Inpatient E&M: 78374 Disch Hosp
--- NOTE | 2022-05-26 14:00 | CASEMGMT ---
KALANI sent orders and COVID test to [facility] via [employer]. KALANI completed 7000 on [employer]. Plan: d/c to [facility] under skilled level of care on a convalescent stay. Ashlyn Parkinson ROVING DEPARTMENT SUPERVISOR ARMANDO
--- NOTE | 2022-05-26 14:18 | CASEMGMT ---
Discharge Picker Operator This teletypewriter installer set up transportation with [facility]. court supervisor time us 3:30pm. Patient and nursing made aware. Beth MORALES Car Stower
--- NOTE | 2022-05-26 14:43 | SP.MBSS_ITS ---
Modified Barium Swallow - Patient Information Study Date: 05/26/22 Study Time: 13:30 Direct Billable Minutes: 105 Total Minutes procedure & reportin Diagnosis: Adult failure to thrive (R62.7) Referring Physician: Fernandez Rosario Reason for Referral: Objectively assess swallow function, risk for aspiration, and determine recommendations for least restrictive diet textures and compensatory strategies to improve safety of swallow. Medical History: The patient is a 71-year-old male with PMH including Valvular heart disease, CAD, COPD, Chronic Systolic/Diastolic CHF/Ischemic Cardiomyopathy, HTN, HLD, GERD, Diabetes mellitus type II with PAD/PVOD/neuropathy, Tobacco use, BEATRICE who presented to the [facility] ED on 05/22/22 with history of progressively worsening fatigue, malaise, weakness and debility, decreased ability to take care of himself. He was admitted for management of adult failure to thrive and generalized weakness. ST consulted due to concerns for swallowing difficulty. BSE completed 05/24/2022 and the patient was downgraded to minced and moist textures / thin liquids with direct supervision. He was recommended for MBSS to objectively assess aspiration risk due to concerns for coughing and wet quality with thin liquids. Current Diet Ordered: Minced and moist textures / thin liquids Dentition: WNL Mental Status: WNL Respiratory Status: Oxygenating on 2L/M nasal cannula - Penetration-Aspiration Scale Penetration-Aspiration Scale: OBJECTIVE ASSESSMENT OF SWALLOW FUNCTION (QUANTITATIVE ? PER TRIAL): PENETRATION / ASPIRATION SCALE (NAPIER): 1 = does not enter airway 2 = enters airway/above vocal folds/ejected 3 = enters airway/above vocal folds/not ejected 4 = enters airway/contacts vocal folds/ejected 5 = enters airway/contacts vocal folds/not ejected 6 = enters airway/below vocal folds/ejected 7 = enters airway/below vocal folds/not ejected despite effort 8 = enters airway/below vocal folds/no effort VIDEOFLOROSCOPIC SCALE SCORE (NAPIER): Grade I = aspiration of material that has penetrated into the laryngeal vestibule, intact cough reflex Grade II = aspiration < 10 % of the bolus, intact cough reflex Grade III = aspiration of < 10 % of the bolus, reduced cough reflex or aspiration of > 10 % of the bolus, intact cough reflex Grade IV = aspiration of > 10 % of the bolus, reduced cough reflex - Penetration-Aspiration Scale Score Thin Liquid via teaspoon Result: 3= enters airways/above vocal folds/not ejected Thin Liquid via teaspoon Trial 2 Result: 1= does not enter airway Thin Liquid via large single sip from cup Result: 3= enters airways/above vocal folds/not ejected Thin Liquid via small single sip from cup Effortful swallow Result: 1= does not enter airway [place] Thick Liquid via large single sip from cup Result: 1= does not enter airway Honey Thick Liquid via small single sip from cup Result: 1= does not enter airway Pudding via teaspoon Result: 1= does not enter airway 1/2 Cookie Result: 1= does not enter airway Thin Liquid via single sip from straw Result: 1= does not enter airway Thin Liquid via small single sip from cup Result: 1= does not enter airway Thin Liquid via small single sip from cup Trial 2 Result: 1= does not enter airway - Oral Phase Labial Seal: No Labial Escape Tongue Control During Bolus Hold: Posterior escape of greater than half of bolus Bolus Preparation/Mastication: Disorganized chewing/mashing with solid pieces of bolus unchewed Bolus Transport/Lingual Motion: Delayed initiation of tongue motion Oral Residue: Trace residue lining oral structures - Pharyngeal Phase Initiation of Pharyngeal Swallow: Bolus head in pyriforms Soft Palate Elevation: No bolus between soft palate and pharyngeal wall Laryngeal Elevation: Partial superior movement thyroid cart/partial apprx aryt- epig petiole Anterior Hyoid Excursion: Partial anterior movement Epiglottic Movement: Complete inversion Pharyngeal Stripping Wave: Present - diminished Pharyngoesophageal Segment Opening: Parital distension and partial duration; parital obstruction of flow Tongue Base Retraction: Wide column of contrast between tongue base & post. pharyngeal wall Pharyngeal Residue: Collection of residue within or on pharyngeal structures - Treatment Strategies Effects of treatment strategies attemped:: Decreased bolus size = effective. - Diagnosis/Impression Diagnosis: Mild-moderate oropharyngeal phase dysphagia (R13.12) Impression: The oral phase is primarily marked by... -Decreased bolus control with <1/2 of the bolus spilling posteriorly to the pyriforms prior to swallow onset observed with thin liquids especially. -Trace oral residue after the swallow. -Mild-moderate mastication deficits with portion of cookie appearing unchewed. The pharyngeal phase is primarily marked by... -Mildly decreased airway closure during the swallow due to decreased anterior hyoid excursion and decreased laryngeal elevation. -Moderately decreased tongue base retraction, mildly decreased UES opening/duration, and mildly decreased pharyngeal stripping wave with resulting mild-moderate pharyngeal residues after the swallow. -Laryngeal penetration with thin liquids by tsp (trace after the swallow) and large sips by cup, which did not reliably eject from the laryngeal vestibule after the swallow. Use of decreased bolus size was effective in decreasing laryngeal penetration. - Recommendations Diet: Mechanical Soft Textures - Minced and moist textures (IDDSI Level 5), Thin Liquids Compensatory Strategies: Small Bites, Small Sips, Slow Rate, Multiple Swallows - patient will complete intermittent double swallows as needed, Sitting upright, Remain sitting upright for 30 minutes after PO intake Supervision: 1:1 Close Supervision Recommend Repeat Modified Barium Swallow: No Need for Skilled Speech Therapy Services: Yes Comment: Will recommend the patient for dysphagia therapy to address deficits in oropharyngeal swallow function. Will recommend the patient for oropharyngeal strengthening to improve tongue base retraction, hyolaryngeal elevation and excursion, hyoid excursion, and pharyngeal contraction (Marcia, CTAR, Mary, Effortful swallow). The patient would benefit from thorough education regarding diet recommendations and recommended compensatory strategies. Will recommend trials of more solid textures with [employer]STRUCTIONAL ASSISTANT to assess appropriateness for diet advancement of solids. Education Completed: 1. Described result of evaluation., 6. Family/caregivers demonstrate recommended strategies. - Status Active ST Patient: Active - Contact Information [facility] Speech Therapy:: Lula Leung M.A. [facility] Speech-Language Pathologist [facility] [address] [place] [address] [email or web address] [phone] 05/26/22 14:45
--- NOTE | 2022-05-26 14:44 | NURSING ---
attempted to give Nurse to Nurse report to the [facility]. Staff member says that the nurse taking pt is at lunch and she will have her call back to PCU as soon as she gets back to get report. number to PCU provided.
== END 2022-05-26 16:09 | disposition skilled nursing facility (03) | DRG 640 ==
LOC: ED 17:56 → MS3 18:20 → PCU 05-24 13:16
PROVIDERS: Student in an Organized Health Care Education/Training Program; Admitting Provider Family Medicine; Emergency Provider Emergency Medicine; PCP Family Medicine Geriatric Medicine; Visit Provider Family Medicine
DX: R62.7 Adult failure to thrive (principal); J96.01 Acute respiratory failure with hypoxia; I50.43 Acute on chronic combined systolic (congestive) and diastolic (congestive) heart failure; N17.9 Acute kidney failure, unspecified; N39.0 Urinary tract infection, site not specified; E11.649 Type 2 diabetes mellitus with hypoglycemia without coma; E11.42 Type 2 diabetes mellitus with diabetic polyneuropathy; B37.2 Candidiasis of skin and nail; E11.51 Type 2 diabetes mellitus with diabetic peripheral angiopathy without gangrene; I11.0 Hypertensive heart disease with heart failure; J44.9 Chronic obstructive pulmonary disease, unspecified; Z79.4 Long term (current) use of insulin; I25.5 Ischemic cardiomyopathy; E78.5 Hyperlipidemia, unspecified; I25.10 Atherosclerotic heart disease of native coronary artery without angina pectoris; G47.33 Obstructive sleep apnea (adult) (pediatric); K21.9 Gastro-esophageal reflux disease without esophagitis; E87.5 Hyperkalemia; F17.210 Nicotine dependence, cigarettes, uncomplicated; Z79.84 Long term (current) use of oral hypoglycemic drugs; R53.81 Other malaise; R53.1 Weakness; Z79.01 Long term (current) use of 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s; B96.89 Other specified bacterial agents as the cause of diseases classified elsewhere; Z79.899 Other long term (current) drug therapy; Z95.2 Presence of prosthetic heart valve; Z86.718 Personal history of other venous thrombosis and embolism
CPT/HCPCS: 36415; 36600; 51702; 71045; 71046; 73564; 74230; 80048; 80053; 81001; 82570; 82803; 82947; 82962; 83605; 83735; 84100; 84145; 84540; 85025; 85610; 87086; 87088; 87426; 87635; 92526; 92610; 92611; 94640; 94762; 97110; 97162; 97166; 97530; 97802; 99251; 99283; 99406; J7030; A4216; G0463; J1940; J2405; U0003; U0005

== ENCOUNTER 2022-07-31 16:07 | Inpatient (IN) | payer MEDICARE, MEDICAID, SELFPAY ==
[2022-07-31 16:09] VITALS: BP 126/77; PULSE 90; RESP 18; TEMP 37; O2SAT 99; BMI 28.3
--- NOTE | 2022-07-31 17:02 | EKG12_ITS ---
Test Reason : Blood Pressure : / mmHG Vent. Rate : 095 BPM Atrial Rate : 092 BPM P-R Int : 000 ms QRS Dur : 092 ms QT Int : 382 ms P-R-T Axes : 000 029 114 degrees QTc Int : 480 ms Normal sinus rhythm Cannot rule out Inferior infarct , age undetermined Anteroseptal infarct , age undetermined Abnormal ECG Confirmed by EVARISTO CHAPA, JORDAN ([id number]), video editor STANISLAV OVIEDO ([id number]) on 08/03/2022 9:36:39 AM Referred By: Confirmed By:JORDAN LOERA MD
--- NOTE | 2022-07-31 17:04 | EDS_ITS ---
HPI History of Present Illness Chief Complaint: Complaint Informant: patient Narrative Narrative: Patient presents with multiple complaints. Is a little bit difficult to get the exact reason for arrival. Patient keeps telling me that it should all be in the computer. With extensive questioning I am able to get some information. This patient evidently was in the hospital recently for something to do with the sciatic nerve. He states it got progressively worse and was causing paralysis. [facility] It sounds like about 3 weeks ago he left [facility] likely [facility] ADVICE. He did this because he or someone else needed to get a place to live and he needed to do that work. But he does not have a place to live. He has been living in a car. He states he is getting weaker and weaker. He can only walk around with a Rollator and then it sounds like today he was too weak to get up from the bathroom. He also has pain all over his body and he cannot specify anything more detailed than that. His urine he states there is blood in it but when I ask him specifically it is just getting darker and darker and is almost dark brown. He has not seen red blood. He tells me he is not taking any of his medicines but its not clear when he stopped. It is likely when he left the [facility]. He cannot tell me his medicines but he states the ones in the computer should be accurate and I have reviewed that list. These include insulin and warfarin among other medicines. It seems that the overall complaint is that he is to the point he cannot care for himself because he is just too globally weak to function. [facility] Medical History Adult failure to thrive Atherosclerosis of coronary artery without angina pectoris Bleeding disorder CHF (congestive heart failure) Chronic combined systolic and diastolic CHF (congestive heart failure) Congestive heart failure COPD (chronic obstructive pulmonary disease) Diabetic foot infection DVT (deep venous thrombosis) Elevated troponin Gangrene of toe GERD (gastroesophageal reflux disease) History of non-ST elevation myocardial infarction (NSTEMI) (04/23/20) Hyperlipidemia Ischemic cardiomyopathy Kidney stones [facility] current use of 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 Lumbar spinal stenosis MSSA (methicillin susceptible Staphylococcus aureus) infection Nicotine dependence Non-healing surgical wound (05/01/20) Nonrheumatic aortic (valve) stenosis 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 Obstructive sleep apnea Osteomyelitis Peripheral vascular occlusive disease Pleural effusion, right Scabies infestation Secondary pulmonary arterial hypertension Smoker Sternal wound infection Type 2 diabetes mellitus 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 foot with fat layer exposed Ulcer of right foot with necrosis of bone Home Medications metformin 500 mg tablet 500 mg PO BIDCM diabetes 05/31/20 [History Last Taken 09/21/21] atorvastatin 40 mg tablet 40 mg PO QHS cholesterol 11/12/20 [History Last Taken 09/20/21] potassium chloride 20 mEq tablet,extended release(part/cryst) 20 meq PO DAILY reese ipplement 12/23/20 [History Last Taken 12/22/20] linagliptin 5 mg tablet (Tradjenta) 5 mg PO DAILY 10/08/21 [History Last Taken Unknown] lisinopril 5 mg tablet 5 mg PO DAILY 10/08/21 [History Last Taken Unknown] metoprolol succinate 25 mg tablet,extended release 24 hr 75 mg PO DAILY 10/08/21 [History Last Taken Unknown] doxepin 50 mg capsule 50 mg PO DAILY 02/11/22 [History Last Taken Unknown] gabapentin 100 mg capsule 100 mg PO BID 02/11/22 [History Last Taken Unknown] insulin aspart U-100 100 unit/mL (3 mL) subcutaneous pen (Novolog FlexPen U-100 Insulin aspart) 10 unit (0.1 mL) subcut BIDCM diabetes #3 mL 02/12/22 [Rx Last Taken Unknown] insulin glargine 100 unit/mL (3 mL) subcutaneous pen (Lantus Solostar U-100 Insulin) 25 unit (0.25 mL) subcut DAILY DM #3 mL 02/12/22 [Rx Last Taken Un known] warfarin 6 mg tablet (Jantoven) 6 mg PO DAILY #30 tabs 02/12/22 [Rx Last Taken Unknown] diazepam 5 mg tablet 5 mg PO Q8 PRN Muscle Spasm #12 tabs 03/18/22 [Rx Last Taken Unknown] aspirin 81 mg tablet,delayed release 81 mg PO DAILY #0 tabs 05/26/22 [Rx Last Taken Unknown] furosemide 20 mg tablet 20 mg PO DAILY #0 tabs 05/26/22 [Rx Last Taken Unknown] Allergy/AdvReac Type Severity Reaction Status Date / Time No Known Allergies Allergy Verified 07/31/22 16:08 Family History Mother Diabetes Heart disease Father Diabetes Surgical History H/O coronary artery bypass surgery (05/01/20) History of angioplasty of peripheral vessel (01/02/10) History of femoropopliteal bypass (2008) History of incision and drainage (09/22/20) History of left heart catheterization (04/23/20) History of lumbar laminectomy History of mechanical aortic valve replacement Social History household members: significant other Smoking Status: Current every day smoker tobacco type: cigarettes alcohol intake: never substance use type: does not use caffeine: No ROS ROS ED Constitutional Constitutional ED: Denies chills or fever(s) Eyes Eyes: Denies change in vision ENT ENT ED: Denies rhinorrhea or sore throat Cardiovascular Cardiovascular: Denies racing heartbeat Respiratory/Chest Respiratory/Chest: Denies cough Gastrointestinal Gastrointestinal: Reports constipation and nausea; Denies abdominal pain or vomiting Genitourinary Genitourinary ED: Reports hematuria Musculoskeletal Musculoskeletal: Reports myalgias Integumentary Denies rash Neurologic Neurologic: Reports weakness Psychiatric Psychiatric: Reports depression Endocrine Endocrinology: Denies polydipsia or polyuria Hematologic/Lymphatic Hematologic/Lymphatic: Reports easy bleeding and easy bruising Allergic/Immunologic Allergic/Immunologic ED: Denies urticaria EXAM Physical Exam Const Vital Signs: 07/31/22 16:09 07/31/22 18:34 Temperature 98.6 F 97.5 F L Temperature Source Temporal Oral Pulse Rate 90 87 Respiratory Rate 18 16 Blood Pressure 126/77 H 139/88 H Blood Pressure Mean 93 105 Pulse Ox 99 95 Oxygen Delivery Method Room Air Room Air Positive well nourished, well developed and unkempt Constitutional Narrative: Patient is unkempt. But he is alert and oriented. He is a bad informant for details. He smells of urine and cigarettes. General Appearance ED: unkempt, well developed and NAD HEENT Reports dry mucous membranes HEENT Narrative: Mildly dry mucous membranes Mouth ED: Yes dry mucous membranes Mouth: dry mucous membranes Eyes General Eye ED: Negative for scleral icterus Neck no JVD Chest Wall Chest Narrative: Patient has a large anterior right-sided defect on the chest but he is not sure what surgery was done there. Resp normal respiratory effort Resp Narrative: I do not hear rales spite not being on Lasix. Cardio regular rate and regular rhythm Rate: other Other Details: + mechanical click ; Negative for tachycardic GI normal to inspection, nondistended, normoactive bowel sounds and non-tender GI Narrative: Patient states he has not moved his bowels much in the last month but he is not distended or tender. Back/Spine no CVA tenderness Extremity Extremity Narrative: Staining consistent with cigarette use. He has a dressing on his right lower extremity that looks like its been wrapped for quite some time. We are getting equipment to remove this. I do not note any specific odor. Lessons were taken down. He has dried lesions but no sign of acute infection. Neuro oriented x3 Psych Appearance: unkempt Skin General Skin Exam: Negative for jaundice MDM MDM MDM Narrative Medical decision making narrative: I have reviewed prior notes on our chart from inpatient visits not in the emergency department. This patient does have history of mechanical heart valve but he has no idea if that is true. He also has diabetes. This patient has a complex medical history that very much affects his visit today for generalized weakness when he is not taking any of his meds. This puts him at very high risk of and significant disability. He could even lose a mechanical heart valve. His blood work shows INR is only 1.4. I will give Lovenox to bridge him. Electrolytes show mildly low potassium. I will replace this orally. His glucose is high at 340. We will give him some insulin. Liver function test shows a mild bump in bilirubin but he is not having pain. Take was only up to 2.0 White count was normal. He was anemic. He reports no history of bleeding. Urine does show positive nitrates leukocyte Estrace and white cells and he will be treated as UTI. My independent review of the patient's three-view x-ray of his right foot looked at by me shows prior amputation and significant bony changes. But clinically he does not look like osteomyelitis. My independent review of the patient's single view chest x-ray shows possible effusion on the right. But this could be the soft tissue mass/swelling/surgical changes he has clinically on exam. He is not having hypoxia or significant dyspnea. With this patient's complex medical history, generalized weakness, inability to ambulate, and off all of his medicines for 3 weeks he does require admission. He also has UTI which is likely contributing to his generalized weakness. Lab Data Attestation: I reviewed the patient's lab results. Labs: Laboratory Results - last 24 hr 07/31/22 07/31/22 07/31/22 17:30 17:30 17:30 WBC RBC Hgb Hct MCV MCH MCHC RDW Std Deviation RDW Coeff of Estrada Plt Count MPV Immature Gran % (Auto) Neut % (Auto) Lymph % (Auto) [place] % (Auto) Eos % (Auto) Baso % (Auto) Absolute Neuts (auto) Absolute Lymphs (auto) Nucleated RBC % Differential Comment Polychromasia Anisocytosis Microcytosis Macrocytosis Ovalocytes PT 16.9 H INR 1.4 Sodium 139 Potassium 3.0 L Chloride 106 Carbon Dioxide 27.0 Anion Gap 6 BUN 10 Creatinine 0.79 Estim Creat Clear Calc 71.99 Est GFR (MDRD) Af Amer 125 Est GFR (MDRD) Non-Af 103 BUN/Creatinine Ratio 12.7 Glucose 343 H Lactic Acid 2.0 Calcium 8.4 L Total Bilirubin 2.30 H AST 14 L ALT 13 L Alkaline Phosphatase 143 H Troponin I High Sens 36 Total Protein 6.7 Albumin 3.0 L Globulin 3.7 Albumin/Globulin Ratio 0.8 L Lipase 54 L Urine Color Urine Clarity Urine pH Ur Specific [place] Urine Protein Urine Glucose (UA) Urine Ketones Urine Occult Blood Urine Nitrite Urine Bilirubin Urine Urobilinogen Ur Leukocyte Esterase Urine RBC Urine WBC Ur Squamous Epith Cells Amorphous Sediment Urine Bacteria Urine Mucus 07/31/22 07/31/22 17:30 17:50 WBC 5.2 RBC 4.61 Hgb 10.4 L Hct 36.1 L MCV 78.3 L MCH 22.6 L MCHC 28.8 L RDW Std Deviation 62.7 H RDW Coeff of Estrada 22.2 H Plt Count 198 MPV 10.1 Immature Gran % (Auto) 0.400 Neut % (Auto) 65.1 Lymph % (Auto) 22.7 [place] % (Auto) 10.0 Eos % (Auto) 1.2 Baso % (Auto) 0.6 Absolute Neuts (auto) 3.4 Absolute Lymphs (auto) 1.18 Nucleated RBC % 0 Differential Comment SCANNED Polychromasia RARE Anisocytosis 2+ Microcytosis 1+ Macrocytosis 1+ Ovalocytes RARE PT INR Sodium Potassium Chloride Carbon Dioxide Anion Gap BUN Creatinine Estim Creat Clear Calc Est GFR (MDRD) Af Amer Est GFR (MDRD) Non-Af BUN/Creatinine Ratio Glucose Lactic Acid Calcium Total Bilirubin AST ALT Alkaline Phosphatase Troponin I High Sens Total Protein Albumin Globulin Albumin/Globulin Ratio Lipase Urine Color Araseli Urine Clarity Clear Urine pH 7.0 Ur Specific [place] 1.015 Urine Protein 100 H Urine Glucose (UA) 1000 H Urine Ketones 5 H Urine Occult Blood Negative Urine Nitrite Positive H Urine Bilirubin 3 H Urine Urobilinogen 12 H Ur Leukocyte Esterase 500 H Urine RBC 0-5 SEEN Urine WBC 10-25 SEEN Ur Squamous Epith Cells 0-5 SEEN Amorphous Sediment 1+ PHOS Urine Bacteria RARE Urine Mucus 0 SEEN Radiography Diagnostic Testing: Clinical Impression(s) from Imaging Studies Chest X-Ray 07/31/22 17:10 IMPRESSION: Persistent or recurrent pleural effusion/consolidation at the right lung base. Underlying mass lesion cannot be excluded. Consider chest CT follow-up for evaluation. Electronically Signed: Sage Burrell MD at 17:52 EST , Foot X-Ray 07/31/22 17:50 IMPRESSION: No acute bony abnormality. Interval development of significant midfoot degenerative changes suggesting early Charcot joint. Chronic osteomyelitis should also be considered. Electronically Signed: Sage Burrell MD at 18:54 EST , EKG Initial EKG: Comments: My independent interpretation of the EKG done for generalized weakness in a patient with known heart disease shows what appears to be sinus with frequent PACs. I think it is less likely atrial fibrillation. Overall rate of 95. Occasional ventricular ectopy. No acute ST elevation or depression. Where I see P waves, it looks like normal MO interval. QRS duration is normal. QTc is a bit long at 480. Discharge Plan Triage Chief Complaint: Complaint ED Provider: Booker Encarnacion Dx/Rx/DC Orders Clinical Impression: Urinary tract infection, Generalized weakness, Inability to walk, Hyper glycemia, Hypokalemia, Hx of mechanical aortic valve replacement Prescriptions: No Action metformin 500 mg tablet 500 mg PO BIDCM metoprolol succinate 25 mg tablet extended release 24 hr 75 mg PO DAILY Tradjenta 5 mg tablet 5 mg PO DAILY lisinopril 5 mg tablet 5 mg PO DAILY gabapentin 100 mg capsule 100 mg PO BID Label Comments: TAKE 2 CAPSULES BY MOUTH EVERY 12 HOURS doxepin 50 mg capsule 50 mg PO DAILY atorvastatin 40 mg Tablet 40 mg PO QHS potassium chloride 20 mEq Tablet,Er Particles/Crystals 20 meq PO DAILY warfarin [Jantoven] 6 mg Tablet 6 mg PO DAILY Qty: 30 1RF Rx Instructions: Hold if INR more than 3.5 insulin aspart U-100 [Novolog FlexPen U-100 Insulin] 100 unit/mL (3 mL) insulin pen 10 unit SUBCUT BIDCM Qty: 3 0RF Rx Instructions: Hold if glucose less than 130 mg/dl insulin glargine [Lantus Solostar U-100 Insulin] 100 unit/mL (3 mL) insulin pen 25 unit SUBCUT DAILY Qty: 3 0RF Rx Instructions: Hold if glucose less than 130 mg/dl diazepam 5 mg tablet 5 mg PO Q8 PRN (Reason: Muscle Spasm) Qty: 12 0RF aspirin 81 mg Tablet,Delayed Release (Dr/Ec) 81 mg PO DAILY Qty: 0 0RF furosemide 20 mg Tablet 20 mg PO DAILY Qty: 0 0RF Primary Care Provider: Saurabh Hernandez Chi Referrals: Saurabh Hernandez Chi, MD [Primary Care Provider] - Disposition Disposition: Acute Care Hospital [facility]
--- NOTE | 2022-07-31 17:10 | RAD_ITS ---
INDICATION: Cough, history of pneumonia EXAMINATION/TECHNIQUE: X-RAY - portable upright AP chest x-ray COMPARISON: 05/24/2022 FINDINGS: LINES/DEVICES: None. LUNGS: Persistent or recurrent opacity at the right lung base obscuring the hemidiaphragm and costophrenic angle. Left lung clear. No vascular congestion. MEDIASTINUM AND CARDIOVASCULAR STRUCTURES: Cardiac silhouette not enlarged. Central airways and mediastinal contour are unremarkable. BONES AND SOFT TISSUES: No acute changes. RAD/Chest 1 View (Portable) IMPRESSION: Persistent or recurrent pleural effusion/consolidation at the right lung base. Underlying mass lesion cannot be excluded. Consider chest CT follow-up for evaluation. Electronically Signed: Sage Burrell MD at 17:52 EST ,
--- NOTE | 2022-07-31 17:50 | RAD_ITS ---
INDICATION: Chronic foot wound EXAMINATION/TECHNIQUE: X-RAY - RIGHT XR Foot Min 3 Views 3 VIEWS COMPARISON: 09/12/2019 FINDINGS: SOFT TISSUES: No soft tissue swelling or gas. No radiopaque foreign body. BONES/JOINTS: No acute fracture. Normal alignment. Increased sclerosis at the midfoot joints which remain anatomically aligned. Focal severe degenerative changes at the second MTP joint. No acute cortical destruction identified. RAD/Foot min 3 Views IMPRESSION: No acute bony abnormality. Interval development of significant midfoot degenerative changes suggesting early Charcot joint. Chronic osteomyelitis should also be considered. Electronically Signed: Sage Burrell MD at 18:54 EST ,
[2022-07-31 17:53] LABS: International Normalized Ratio 1.4; Prothrombin Time (Protime)PT. 16.9 SECONDS (11.7-14.9)
[2022-07-31 17:56] LABS: Mucous, Urine 0 SEEN /hpf (<or=2+)
[2022-07-31 17:58] LABS: ALB/GLOB Ratio 0.8 RATIO (0.9-2.4); AST(SGOT) 14 U/L (15-37); Alanine Aminotransfer ALT/SGPT 13 U/L (16-61); Alkaline Phosphatase 143 U/L (45-117); Anion Gap 6 (5-15); BUN 10 mg/dL (7-18); BUN/Creat Ratio 12.7 RATIO (10-20); Calcium,Total 8.4 mg/dL (8.5-10.1); Chloride 106 mmol/L (98-107); Creatinine, Serum 0.79 mg/dL (0.70-1.30); EST Glomerular Filtration Rate 103 mL/min (>60); Est Glom Filt Rate - Afr Amer 125 mL/min (>60); Estimated Creatinine Clearance 71.99 ml/min; Globulin 3.7 g/dL (2.2-4.2); Glucose 343 mg/dL (74-106); Lipase 54 U/L (73-393); Protein, Total 6.7 g/dL (6.4-8.2); Sodium Level 139 mmol/L (136-145); Troponin-I HS 36 pg/mL (3.0-78.0)
[2022-07-31 18:00] LABS: Color, Urine Amber (Yellow); Glucose, Dipstick 1000 mg/dl (Normal); Ketone-Dipstick 5 mg/dl (Negative); Leukocyte Esterase-Dipstick 500 /ul (Negative); Nitrite-Dipstick Positive (Negative); Occult Blood-Urine Negative /ul (Negative); Protein-Dipstick 100 mg/dl (Negative); Specific Gravity, Urine 1.015 (1.002-1.030); Urine Clarity Clear (Clear); Urine Urobilinogen 12 mg/dl (Normal)
[2022-07-31 18:04] LABS: Urine Bilirubin Dipstick 3 mg/dL (Negative)
[2022-07-31 18:07] LABS: Red Blood Cells-Urine 0-5 SEEN /hpf (0-5); White Blood Cells 10-25 SEEN /hpf (0-5)
[2022-07-31 18:08] LABS: Amorphous Sediment 1+ PHOS; Bacteria RARE /hpf (None Seen); Squamous Epithelial Cells - UA 0-5 SEEN /hpf (0-5)
[2022-07-31 18:34] VITALS: BP 139/88; PULSE 87; RESP 16; TEMP 36.4; O2SAT 95
[2022-07-31] MEDS: Ceftriaxone 1 GM/50 ML BAG IV (18:35)
[2022-07-31 18:51] LABS: Absolute Lymphocyte Count 1.18 X10^3/uL (0.83-4.51); Absolute Neutrophil Count 3.4 X10^3/uL (2.0-7.7); Basophil# 0.03 X10^3/uL; Basophil% 0.6 % (0-1); Eosinophil# 0.06 X10^3/uL; Eosinophils% 1.2 % (0-5); Hematocrit 36.1 % (40-54); Hemoglobin 10.4 g/dL (13.0-16.5); Lymphocyte # 1.18 X10^3/ul (0.83-4.51); Lymphocyte % 22.7 % (19-41); Mean Corp Hgb Conc 28.8 g/dL (32-36); Mean Corpuscular Hgb 22.6 pg (27.0-32.0); Mean Corpuscular Volume 78.3 fL (80-94); Mean Platelet Vol. 10.1 fl (6.2-12.0); Monocyte# 0.52 X10^3/uL; NRBC Flagged by Analyzer 0 % (0-5); Neutrophil # 3.39 X10^3/uL (2.7-7.7); Neutrophil % 65.1 % (47-70); POSITIVE MORPHOLOGY YES; Platelet Count 198 K/mm3 (150-450); RBC Distribution Width CV 22.2 % (11.6-14.6); RBC Distribution Width SD 62.7 fl (35.1-43.9); Red Blood Count 4.61 M/mm3 (4.6-6.2); White Blood Count 5.2 K/mm3 (4.4-11.0)
[2022-07-31 19:20] LABS: Differential Indicated SCAN CRITERIA MET
[2022-07-31 19:32] LABS: Anisocytosis 2+; Differential Comment SCANNED; Macrocytosis 1+; Microcytosis 1+; Polychromasia RARE
[2022-07-31 19:33] LABS: Ovalocyte RARE
[2022-07-31] MEDS: Potassium Chloride Oral Tablet 20 MEQ PO (20:58)
[2022-07-31] MEDS: Insulin Lispro 100 UNIT/ML INSULN.PEN 8 UNIT SC (20:58)
[2022-07-31] MEDS: Enoxaparin 100 MG/ML Syringe 90 MG SC (20:58)
[2022-07-31 21:05] VITALS: BP 133/83; PULSE 102; RESP 20; O2SAT 98
--- NOTE | 2022-07-31 21:13 | HP.PCM.HOS_ITS ---
HPI - General General Date of Admission: 07/31/22 Date of Service: 07/31/22 Chief Complaint: weakness, failure to thrive HPI Narrative RAPHAEL HADDAD, is a 71 M with a PMH as outlined who presents via the ED on 07/31/2022 with a complaint of weakness and failure to thrive. Patient recently in the hospital and was discharged to long term facility. He was there for about 3 weeks and left AGAINST MEDICAL ADVICE because he said he needed to help out a friend. Patient has been living in his car since then and has been unable to take care of himself. He been progressively getting weak and has not been compliant with any of his medications. He complained of generalized heidi and said he had not been eating or drinking well. He said his urine was very dark and he had only had a bowel movement twice in the past month. He denied any fever, chills, nausea or vomiting, chest pain, abdominal pain or any other symptoms. Review of systems otherwise negative. Vitals in the ED were blood pressure 133/83, pulse rate of 102 respiratory rate of 20. He was saturating at 98% on room air. CBC showed hemoglobin of 10.4 with WBC of 5.2 and platelets of 198. INR was 1.4 and chemistry was significant for potassium of 3. Total bilirubin was 2.3 and ALP was elevated at 143 with AST and ALT not being elevated. Initial troponin was negative. Urinalysis showed positive nitrites and leukocyte esterase as well as 10-25 WBC per high-power field but no bacteria. He has been admitted to evaluate for debility due to failure to thrive and probable UTI. 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 of 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 Lumbar spinal stenosis MSSA (methicillin susceptible Staphylococcus aureus) infection Nicotine dependence Non-healing surgical wound (05/01/20) Nonrheumatic aortic (valve) stenosis 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 Obstructive sleep apnea Osteomyelitis Peripheral vascular occlusive disease Pleural effusion, right Scabies infestation Secondary pulmonary arterial hypertension Smoker Sternal wound infection Type 2 diabetes mellitus 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 foot with fat layer exposed Ulcer of right foot with necrosis of bone Home Medications metformin 500 mg tablet 500 mg PO BIDCM diabetes 05/31/20 [History Last Taken 09/21/21] atorvastatin 40 mg tablet 40 mg PO QHS cholesterol 11/12/20 [History Last Taken 09/20/21] potassium chloride 20 mEq tablet,extended release(part/cryst) 20 meq PO DAILY suipplement 12/23/20 [History Last Taken 12/22/20] linagliptin 5 mg tablet (Tradjenta) 5 mg PO DAILY 10/08/21 [History Last Taken Unknown] lisinopril 5 mg tablet 5 mg PO DAILY 10/08/21 [History Last Taken Unknown] metoprolol succinate 25 mg tablet,extended release 24 hr 75 mg PO DAILY 10/08/21 [History Last Taken Unknown] doxepin 50 mg capsule 50 mg PO DAILY 02/11/22 [History Last Taken Unknown] gabapentin 100 mg capsule 100 mg PO BID 02/11/22 [History Last Taken Unknown] insulin aspart U-100 100 unit/mL (3 mL) subcutaneous pen (Novolog FlexPen U-100 Insulin aspart) 10 unit (0.1 mL) subcut BIDCM diabetes #3 mL 02/12/22 [Rx Last Taken Unknown] insulin glargine 100 unit/mL (3 mL) subcutaneous pen (Lantus Solostar U-100 Insulin) 25 unit (0.25 mL) subcut DAILY DM #3 mL 02/12/22 [Rx Last Taken Unknown] warfarin 6 mg tablet (Jantoven) 6 mg PO DAILY #30 tabs 02/12/22 [Rx Last Taken Unknown] diazepam 5 mg tablet 5 mg PO Q8 PRN Muscle Spasm #12 tabs 03/18/22 [Rx Last Taken Unknown] aspirin 81 mg tablet,delayed release 81 mg PO DAILY #0 tabs 05/26/22 [Rx Last Taken Unknown] furosemide 20 mg tablet 20 mg PO DAILY #0 tabs 05/26/22 [Rx Last Taken Unknown] Allergy/AdvReac Type Severity Reaction Status Date / Time No Known Allergies Allergy Verified 07/31/22 16:08 Family History Mother Diabetes Heart disease Father Diabetes Surgical History H/O coronary artery bypass surgery (05/01/20) History of angioplasty of peripheral vessel (01/02/10) History of femoropopliteal bypass (2008) History of incision and drainage (09/22/20) History of left heart catheterization (04/23/20) History of lumbar laminectomy History of mechanical aortic valve replacement Social History household members: significant other Smoking Status: Current every day smoker tobacco type: cigarettes alcohol intake: never substance use type: does not use caffeine: No ROS Constitutional Constitutional: Reports fatigue, malaise and weakness; Denies anorexia, chills or fever(s) Eyes Eyes: Denies change in vision ENT HEENT: Denies dysphagia Cardiovascular Cardiovascular: Denies chest pain, dyspnea on exertion, edema, lightheadedness, orthopnea, palpitations or paroxysmal nocturnal dyspnea Respiratory/Chest Respiratory/Chest: Denies cough, dyspnea, shortness of breath at rest or shortness of breath with exertion Gastrointestinal Gastrointestinal: Reports constipation; Denies abdominal pain, diarrhea, dyspepsia, nausea or vomiting Genitourinary Genitourinary: Denies burning urination, dysuria or urinary frequency Neurologic Neurologic: Denies confusion, dizziness, focal weakness, headache(s) or seizure- like activity Psychiatric Psychiatric: Denies anxiety or depression Endocrine Endocrinology: Denies change in body appearance Hematologic/Lymphatic Hematologic/Lymphatic: Denies anemia Vital Signs Vital Signs Vital Signs: 07/31/22 16:09 07/31/22 18:34 07/31/22 21:05 Temperature 98.6 F 97.5 F L Temperature Source Temporal Oral Pulse Rate 90 87 102 H Respiratory Rate 18 16 20 H Blood Pressure 126/77 H 139/88 H 133/83 H Blood Pressure Mean 93 105 99 Pulse Ox 99 95 98 Oxygen Delivery Method Room Air Room Air Room Air Weight Weight: 202 lb 2.622 oz Body Mass Index (BMI) 28.3 Physical Exam Const alert, oriented x3 and no apparent distress Constitutional Narrative: looks unkempt HEENT normocephalic, head/scalp atraumatic, hearing grossly normal bilaterally and moist oral mucous membranes Mouth: oral and palatal mucosa normal Eyes PERRL, EOMs intact bilaterally and conjunctivae normal Neck no lymphadenopathy, supple and no JVD Resp normal respiratory effort, no retractions, no use of accessory muscles and clear to auscultation bilaterally Cardio regular rate, regular rhythm, S1 normal heart sound, S2 normal heart sound and no murmurs Cardio Narrative: metallic aortic valve click GI normal to inspection, nondistended, normoactive bowel sounds, soft to palpation, non-tender and non-distended Extremity no clubbing, cyanosis or edema Skin Skin Narrative: superficial ulceration over dorsum of right foot that has scabbed over Neuro oriented x3, CN's II-XII intact bilaterally and moves all extremities Sensorium / Orientation: awake and alert Motor Exam: strength 5/5 throughout Psych affect normal Results Lab / Micro Data Result Diagrams: 07/31/22 17:30 07/31/22 17:30 Labs: Laboratory Results - last 24 hr 07/31/22 17:30: PT 16.9 H, INR 1.4 07/31/22 17:30: Sodium 139, Potassium 3.0 L, Chloride 106, Carbon Dioxide 27.0, Anion Gap 6, BUN 10, Creatinine 0.79, Estim Creat Clear Calc 71.99, Est GFR (MDRD) Af Amer 125, Est GFR (MDRD) Non-Af 103, BUN/Creatinine Ratio 12.7, Glucose 343 H, Calcium 8.4 L, Total Bilirubin 2.30 H, AST 14 L, ALT 13 L, Alkaline Phosphatase 143 H, Troponin I High Sens 36, Total Protein 6.7, Albumin 3.0 L, Globulin 3.7, Albumin/Globulin Ratio 0.8 L, Lipase 54 L 07/31/22 17:30: Lactic Acid 2.0 07/31/22 17:30: WBC 5.2, RBC 4.61, Hgb 10.4 L, Hct 36.1 L, MCV 78.3 L, MCH 22.6 L, MCHC 28.8 L, RDW Std Deviation 62.7 H, RDW Coeff of Estrada 22.2 H, Plt Count 198, MPV 10.1, Immature Gran % (Auto) 0.400, Neut % (Auto) 65.1, Lymph % (Auto) 22.7, [place] % (Auto) 10.0, Eos % (Auto) 1.2, Baso % (Auto) 0.6, Absolute Neuts (auto) 3.4, Absolute Lymphs (auto) 1.18, Nucleated RBC % 0, Differential Comment SCANNED, Polychromasia RARE, Anisocytosis 2+, Microcytosis 1+, Macrocytosis 1+, Ovalocytes RARE 07/31/22 17:50: Urine Color Araseli, Urine Clarity Clear, Urine pH 7.0, Ur Specific [place] 1.015, Urine Protein 100 H, Urine Glucose (UA) 1000 H, Urine Ketones 5 H, Urine Occult Blood Negative, Urine Nitrite Positive H, Urine B ilirubin 3 H, Urine Urobilinogen 12 H, Ur Leukocyte Esterase 500 H, Urine RBC 0- 5 SEEN, Urine WBC 10-25 SEEN, Ur Squamous Epith Cells 0-5 SEEN, Amorphous Sediment 1+ PHOS, Urine Bacteria RARE, Urine Mucus 0 SEEN Micro: Microbiology 07/31/22 17:30 Nasal Secretion SARS-CoV-2 & FLU Antigen (Rapid) - Final Radiology Impression Chest X-Ray 07/31/22 17:10 IMPRESSION: Persistent or recurrent pleural effusion/consolidation at the right lung base. Underlying mass lesion cannot be excluded. Consider chest CT follow-up for evaluation. Electronically Signed: Sage Burrell MD at 17:52 EST , Foot X-Ray 07/31/22 17:50 IMPRESSION: No acute bony abnormality. Interval development of significant midfoot degenerative changes suggesting early Charcot joint. Chronic osteomyelitis should also be considered. Electronically Signed: Sage Burrell MD at 18:54 EST , Assessment & Plan Assessment/Plan (1) Urinary tract infection: (2) Generalized weakness: (3) Inability to walk: (4) Hypokalemia: (5) Hyperglycemia: PLAN: Plan #Debility due to failure to thrive * admit to med surg * was recently discharged from the hospital to SNF; he left the SNF after 3 weeks and has been living in his car since, not taking any of his meds. * has been getting weaker in his car * consult PT/OT * fall precautions * urinalysis showed evidence of UTI, so started on IV ceftriaxone * will benefit from placement * #UTi: urinalysis positive for leucocyte esterase and nitritres. Urine culture ordered. On IV ceftriaxone #Hypokalemia: K is 3. Will replace and trend. #Type 2 diabetes mellitus with hyperglycemia * has not been compliant with his insulin since he left the SNF ~ 3 weeks ago * blood glucose was 343. * resume home insulin dose of 25 units daily. on linagliptin as well as metformin * ISS. Accuchecks ACHS * #History of mechanical aortic valve * on coumadin. Hasnt been compliant with it since leaving SNF * INR is 1.4 today * resume coumadin. Was given a dose of therapeutic lovenox for bridging in the ED * #Hypertension: on lisinopril and metoprolol #Hyperlipidemia: on statin DVT prophylaxis; on coumadin Code status: full code * Patient counseled extensively about different types of CODE STATUS including full code, DNR CCA and DNR CCA. Patient elects to be full code. * Total itbw-zy-ahwy time 16 minutes. Charges/Coding Visit Charges OBSV E&M: 08512 Observ/hosp same date L3 Procedures Hospitalists Procedures: 37745 Advncd Care Plan 30 Min
[2022-07-31 21:36] LABS: Reflex Lactate? Y
[2022-07-31 21:46] VITALS: BP 133/83; PULSE 98; RESP 18; TEMP 36.4; O2SAT 97
[2022-07-31 22:05] VITALS: BP 121/67; PULSE 98; RESP 18; TEMP 36.4; O2SAT 100
[2022-07-31 22:16] VITALS: BMI 27.6
[2022-07-31] MEDS: Insulin Lispro 100 UNIT/ML INSULN.PEN SC (22:30)
[2022-07-31] MEDS: 0.9% Normal Saline 1,000 ML 125 ML IV (22:32)
[2022-07-31] MEDS: 0.9% Saline Lock 10 ML Syringe IV (22:32)
[2022-07-31 22:50] LABS: Bedside Glucose 275 mg/dL (74-106)
[2022-07-31 22:56] LABS: Lactic Acid 2.4 mmol/L (0.4-1.9)
[2022-08-01] MEDS: 0.9% Normal Saline 1,000 ML 125 ML IV (05:50)
[2022-08-01 06:06] LABS: Bedside Glucose 150 mg/dL (74-106)
[2022-08-01 06:27] LABS: Absolute Lymphocyte Count 1.73 X10^3/uL (0.83-4.51); Absolute Neutrophil Count 3.4 X10^3/uL (2.0-7.7); Basophil# 0.04 X10^3/uL; Basophil% 0.7 % (0-1); Eosinophil# 0.13 X10^3/uL; Eosinophils% 2.2 % (0-5); Hematocrit 32.7 % (40-54); Hemoglobin 9.7 g/dL (13.0-16.5); Lymphocyte # 1.73 X10^3/ul (0.83-4.51); Mean Corp Hgb Conc 29.7 g/dL (32-36); Mean Corpuscular Volume 77.7 fL (80-94); Mean Platelet Vol. 10.4 fl (6.2-12.0); Monocyte# 0.64 X10^3/uL; Monocyte% 10.7 % (0-10); NRBC Flagged by Analyzer 0 % (0-5); Neutrophil # 3.42 X10^3/uL (2.7-7.7); Neutrophil % 57.2 % (47-70); POSITIVE MORPHOLOGY YES; Platelet Count 200 K/mm3 (150-450); RBC Distribution Width CV 22.1 % (11.6-14.6); RBC Distribution Width SD 62.1 fl (35.1-43.9); Red Blood Count 4.21 M/mm3 (4.6-6.2)
[2022-08-01 06:31] LABS: Differential Indicated SCAN CRITERIA MET
[2022-08-01 06:47] LABS: Anisocytosis 2+; Hypochromasia 1+; Microcytosis RARE
[2022-08-01 07:04] LABS: Anion Gap 6 (5-15); BUN 10 mg/dL (7-18); Calcium,Total 7.9 mg/dL (8.5-10.1); Chloride 108 mmol/L (98-107); Creatinine, Serum 0.67 mg/dL (0.70-1.30); EST Glomerular Filtration Rate 126 mL/min (>60); Est Glom Filt Rate - Afr Amer 152 mL/min (>60); Estimated Creatinine Clearance 74.25 ml/min; Glucose 138 mg/dL (74-106); Potassium 3.2 mmol/L (3.5-5.1); Sodium Level 141 mmol/L (136-145)
--- NOTE | 2022-08-01 07:16 | PN.HOSP_ITS ---
Subjective Subjective Follow-up physical debility, acute cystitis Patient is a 71-year-old gentleman with multiple comorbidities including coronary artery disease with previous CABG, peripheral vascular disease as well as aortic valve disease status post mechanical aortic valve replacement admitted with significant debility with failure to thrive. Was also found to have acute cystitis on admission admitted to regular nursing floor for further management Objective Data Objective Data Vital Signs: Vital Signs Temp Pulse Resp BP Pulse Ox O2 Del Method 97.6 F L 98 18 121/67 H 100 Room Air 07/31/22 22:05 07/31/22 22:05 07/31/22 22:05 07/31/22 22:05 07/31/22 22:05 08/01/22 02:10 Oxygen Delivery Method Room Air Weight: 89.7 kg Body Mass Index (BMI) 27.6 Intake & Output: Intake and Output for Last 24 Hours 07/30/22 07/31/22 08/01/22 23:59 23:59 23:59 Intake Total 50 / 50 1212.5 / 1212.5 Balance 50 / 50 1212.5 / 1212.5 Lab / Micro Data Result Diagrams: 08/01/22 06:15 08/01/22 06:15 Labs: Laboratory Results - last 24 hr 07/31/22 17:30: PT 16.9 H, INR 1.4 07/31/22 17:30: Sodium 139, Potassium 3.0 L, Chloride 106, Carbon Dioxide 27.0, Anion Gap 6, BUN 10, Creatinine 0.79, Estim Creat Clear Calc 71.99, Est GFR (MDRD) Af Amer 125, Est GFR (MDRD) Non-Af 103, BUN/Creatinine Ratio 12.7, Glucose 343 H, Calcium 8.4 L, Total Bilirubin 2.30 H, AST 14 L, ALT 13 L, Alkaline Phosphatase 143 H, Troponin I High Sens 36, Total Protein 6.7, Albumin 3.0 L, Globulin 3.7, Albumin/Globulin Ratio 0.8 L, Lipase 54 L 07/31/22 17:30: Lactic Acid 2.0 07/31/22 17:30: WBC 5.2, RBC 4.61, Hgb 10.4 L, Hct 36.1 L, MCV 78.3 L, MCH 22.6 L, MCHC 28.8 L, RDW Std Deviation 62.7 H, RDW Coeff of Estrada 22.2 H, Plt Count 198, MPV 10.1, Immature Gran % (Auto) 0.400, Neut % (Auto) 65.1, Lymph % (Auto) 22.7, [place] % (Auto) 10.0, Eos % (Auto) 1.2, Baso % (Auto) 0.6, Absolute Neuts (auto) 3.4, Absolute Lymphs (auto) 1.18, Nucleated RBC % 0, Differential Comment SCANNED, Polychromasia RARE, Anisocytosis 2+, Microcytosis 1+, Macrocytosis 1+, Ovalocytes RARE 07/31/22 17:50: Urine Color Araseli, Urine Clarity Clear, Urine pH 7.0, Ur Specific [place] 1.015, Urine Protein 100 H, Urine Glucose (UA) 1000 H, Urine Ketones 5 H, Urine Occult Blood Negative, Urine Nitrite Positive H, Urine Bilirubin 3 H, Urine Urobilinogen 12 H, Ur Leukocyte Esterase 500 H, Urine RBC 0-5 SEEN, Urine WBC 10-25 SEEN, Ur Squamous Epith Cells 0-5 SEEN, Amorphous Sediment 1+ PHOS, Urine Bacteria RARE, Urine Mucus 0 SEEN 07/31/22 22:02: Lactic Acid 2.4 H* 07/31/22 22:27: POC Glucose 275 H 08/01/22 05:48: POC Glucose 150 H 08/01/22 06:15: WBC 6.0, RBC 4.21 L, Hgb 9.7 L, Hct 32.7 L, MCV 77.7 L, MCH 23.0 L, MCHC 29.7 L, RDW Std Deviation 62.1 H, RDW Coeff of Estrada 22.1 H, Plt Count 200, MPV 10.4, Immature Gran % (Auto) 0.200, Neut % (Auto) 57.2, Lymph % (Auto) 29.0, [place] % (Auto) 10.7 H, Eos % (Auto) 2.2, Baso % (Auto) 0.7, Absolute Neuts (auto) 3.4, Absolute Lymphs (auto) 1.73, Nucleated RBC % 0, Hypochromasia 1+, Anisocytosis 2+, Microcytosis RARE 08/01/22 06:15: Sodium 141, Potassium 3.2 L, Chloride 108 H, Carbon Dioxide 27.0, Anion Gap 6, BUN 10, Creatinine 0.67 L, Estim Creat Clear Calc 74.25, Est GFR (MDRD) Af Amer 152, Est GFR (MDRD) Non-Af 126, BUN/Creatinine Ratio 15.0, Glucose 138 H, Calcium 7.9 L Micro: Microbiology 07/31/22 17:30 Nasal Secretion SARS-CoV-2 & FLU Antigen (Rapid) - Final Radiography Diagnostic Testing: Radiology Impression Chest X-Ray 07/31/22 17:10 IMPRESSION: Persistent or recurrent pleural effusion/consolidation at the right lung base. Underlying mass lesion cannot be excluded. Consider chest CT follow-up for evaluation. Electronically Signed: Sage Burrell MD at 17:52 EST , Foot X-Ray 07/31/22 17:50 IMPRESSION: No acute bony abnormality. Interval development of significant midfoot degenerative changes suggesting early Charcot joint. Chronic osteomyelitis should also be considered. Electronically Signed: Sage Burrell MD at 18:54 EST , Physical Exam Narrative GENERAL: cooperative HEENT: Atraumatic; normocephalic EYES; Anicteric, Normal Conjunctiva NECK; supple, normal thyroid, RESPIRATORY: Diminished to auscultation CARDIOVASCULAR: Regular S1 S2, GI: soft, normoactive bowel sounds, : No Renal angle tenderness; EXTREMITIES: No edema, no clubbing, MUSCULOSKELETAL: no muscle wasting NEURO: Awake; no lateralizing signs. SKIN: No Rash PSYCH; Flat affect Assessment & Plan Assessment/Plan (1) Urinary tract infection: (2) Generalized weakness: (3) Inability to walk: (4) Hypokalemia: (5) Hyperglycemia: PLAN: Plan ?Patient is a 71-year-old gentleman with multiple comorbidities including coronary artery disease with previous CABG, peripheral vascular disease as well as aortic valve disease status post mechanical aortic valve replacement admitted with significant debility with failure to thrive. Was also found to have acute cystitis on admission admitted to regular nursing floor for further management 1. Acute cystitis ? Patient started on Rocephin urine culture sent 2.? Aortic valve disease ?Status post aortic valve replacement [facility] mechanical valve.? Patient INR is subtherapeutic apparently due to noncompliance.? Bridged with Lovenox with daily monitoring of INR ordered 4.? Acute on chronic congestive heart failure with reduced ejection fraction ?Echo obtained on 09/22/2021 demonstrated EF of 30% with moderate global hypokinesis.? Patient is on lisinopril as well as furosemide continued 4.? Coronary artery disease ?With previous CABG 5.? Peripheral arterial disease ?With history of femoropopliteal bypass 6.? Diabetes mellitus type 2 ?Did continue home regimen insulin Lantus and held patient metformin with Accu- Cheks before meals and at bedtime with sliding scale coverage 7.? Anemia - Secondary to chronic disorder monitoring H&H and transfuse if patient becomes symptomatic or hemoglobin falls below 7 we will also ordered iron studies given patient microcytosis with MCV of 77. If patient has significant iron deficiency anemia patient may need to undergo subsequent evaluation including colonoscopy 8.? Physical deconditioning - Requested for PT OT eval and healthcare social worker to assist with discharge planning; plan for patient to be discharged to [facility] pending insurance approval Hypokalemia ? Corrected per protocol repeat labs ordered for a.m. 10. DVT prophylaxis ? Patient is on systemic anticoagulation Time spent in the patient's overall evaluation,decision-making process, review of diagnostic data, adjustment of management, med reconciliation, ordering of labs discussion with other providers, nursing nursing and ancillary staff involved in patient's care documentation, 58- Minutes Charges/Coding Visit Charges Inpatient E&M: 26909 [facility] Hosp L3
[2022-08-01 07:49] VITALS: BP 129/77; PULSE 88; RESP 18; TEMP 37; O2SAT 100
[2022-08-01] MEDS: Potassium Chloride Oral Tablet 20 MEQ 40 MEQ PO (08:57)
[2022-08-01] MEDS: Potassium Chloride Oral Tablet 20 MEQ PO ×2 (08:57→16:06)
[2022-08-01] MEDS: Insulin Lispro 100 UNIT/ML INSULN.PEN 10 UNIT SC ×2 (08:59→16:04)
[2022-08-01] MEDS: Insulin Glargine-YFGN 100 UNIT/ML Pen 25 UNIT SC (09:26)
[2022-08-01] MEDS: Furosemide 20 MG Tablet PO (09:27)
[2022-08-01 09:28] VITALS: PULSE 88
[2022-08-01] MEDS: Metoprolol(XL)Succ 25 MG Tablet 75 MG PO (09:28)
[2022-08-01] MEDS: LINAGLIPTIN 5 MG TABLET PO (09:29)
[2022-08-01] MEDS: Lisinopril 5 MG Tablet PO (09:29)
[2022-08-01] MEDS: Enoxaparin 100 MG/ML Syringe 90 MG SC ×2 (09:29→21:05)
[2022-08-01] MEDS: Glucerna Shake 120 ML LIQUID PO (09:36)
[2022-08-01] MEDS: Gabapentin 100 MG Capsule PO ×2 (09:37→16:01)
[2022-08-01 10:47] LABS: Iron Binding Capacity,Total 377 ug/dL (250-450)
[2022-08-01 11:05] LABS: Immature Platelet Fraction 8.5 % (1.0-7.9); Platelet Count 194 K/mm3 (150-450); RET-HE 20.5 pg (30-35); Reticulocyte Count 2.29 % (0.5-1.5)
[2022-08-01 12:31] LABS: Bedside Glucose 128 mg/dL (74-106)
[2022-08-01] MEDS: Insulin Lispro 100 UNIT/ML INSULN.PEN SC (16:04)
[2022-08-01 16:08] VITALS: BP 117/90; PULSE 74; RESP 18; TEMP 36.9; O2SAT 100
[2022-08-01 16:31] LABS: Bedside Glucose 201 mg/dL (74-106)
[2022-08-01] MEDS: Ceftriaxone 1 GM/50 ML BAG IV (21:02)
[2022-08-01] MEDS: DOXEPIN HCL 50 MG CAPSULE PO (21:05)
[2022-08-01] MEDS: Atorvastatin Calcium 40 MG Tablet PO (21:05)
[2022-08-01 21:26] LABS: Bedside Glucose 114 mg/dL (74-106)
[2022-08-01 22:23] VITALS: BP 105/69; PULSE 82; RESP 22; TEMP 36.8; O2SAT 96
[2022-08-02] VITALS (9 sets, daily range): BP systolic 96–113; BP diastolic 62–77; PULSE 60–71; RESP 16–24; TEMP 36.2–36.9; O2SAT 94–100
[2022-08-02] MEDS: 0.9% Saline Lock 10 ML Syringe IV (06:40)
[2022-08-02] MEDS: Insulin Lispro 100 UNIT/ML INSULN.PEN SC ×3 (06:40→15:53)
[2022-08-02] MEDS: Ondansetron 4 MG/2 ML Vial IV (06:40)
[2022-08-02 06:41] LABS: Absolute Lymphocyte Count 2.21 X10^3/uL (0.83-4.51); Absolute Neutrophil Count 4.7 X10^3/uL (2.0-7.7); Basophil# 0.05 X10^3/uL; Basophil% 0.6 % (0-1); Eosinophil# 0.12 X10^3/uL; Eosinophils% 1.5 % (0-5); Hemoglobin 10.8 g/dL (13.0-16.5); Lymphocyte # 2.21 X10^3/ul (0.83-4.51); Lymphocyte % 27.6 % (19-41); Mean Corp Hgb Conc 28.4 g/dL (32-36); Mean Corpuscular Hgb 22.7 pg (27.0-32.0); Mean Corpuscular Volume 79.8 fL (80-94); Mean Platelet Vol. 10.2 fl (6.2-12.0); Monocyte# 0.83 X10^3/uL; Monocyte% 10.4 % (0-10); NRBC Flagged by Analyzer 0.4 % (0-5); Neutrophil # 4.74 X10^3/uL (2.7-7.7); Neutrophil % 59.2 % (47-70); POSITIVE MORPHOLOGY YES; Platelet Count 192 K/mm3 (150-450); RBC Distribution Width CV 22.6 % (11.6-14.6); RBC Distribution Width SD 64.4 fl (35.1-43.9); Red Blood Count 4.76 M/mm3 (4.6-6.2)
[2022-08-02 06:44] LABS: International Normalized Ratio 1.4; Prothrombin Time (Protime)PT. 17.1 SECONDS (11.7-14.9)
[2022-08-02 06:55] LABS: Bedside Glucose 190 mg/dL (74-106)
[2022-08-02 06:58] LABS: Differential Indicated SCAN CRITERIA MET
[2022-08-02 07:17] LABS: Anion Gap 7 (5-15); BUN 17 mg/dL (7-18); BUN/Creat Ratio 16.2 RATIO (10-20); Calcium,Total 8.5 mg/dL (8.5-10.1); Chloride 105 mmol/L (98-107); Creatinine, Serum 1.05 mg/dL (0.70-1.30); EST Glomerular Filtration Rate 74 mL/min (>60); Est Glom Filt Rate - Afr Amer 90 mL/min (>60); Estimated Creatinine Clearance 70.72 ml/min; Glucose 209 mg/dL (74-106); Magnesium 1.9 mg/dL (1.6-2.6); Phosphorus 3.2 mg/dL (2.5-4.9); Potassium 4.2 mmol/L (3.5-5.1); Sodium Level 138 mmol/L (136-145)
[2022-08-02 07:18] LABS: Anisocytosis 2+; Microcytosis RARE
[2022-08-02 07:19] LABS: Burr Cells 1+; Hypochromasia 1+
[2022-08-02 08:03] LABS: Vitamin B12 693 pg/mL (211-911)
[2022-08-02] MEDS: Potassium Chloride Oral Tablet 20 MEQ PO ×2 (08:18→15:54)
[2022-08-02] MEDS: Metoprolol(XL)Succ 25 MG Tablet 75 MG PO (08:18)
[2022-08-02] MEDS: Furosemide 20 MG Tablet PO (08:19)
[2022-08-02] MEDS: Enoxaparin 100 MG/ML Syringe 90 MG SC ×2 (08:19→21:15)
[2022-08-02] MEDS: Gabapentin 100 MG Capsule PO ×2 (08:22→15:57)
[2022-08-02] MEDS: oxyCODONE 5 MG Tablet PO (08:22)
--- NOTE | 2022-08-02 08:58 | WOUNDNOTE ---
Was asked to see patient for wounds to the right foot. there was a scab noted to the right dorsal foot. the scab was removed. wound healed underneath. there is a tiny scab noted to the right 2nd toe. no drainage noted. no other open areas noted to bilateral feet. will monitor, but no need for wound care at this time.
--- NOTE | 2022-08-02 09:46 | WOUNDNOTE ---
skin photo: right foot
[2022-08-02] MEDS: LINAGLIPTIN 5 MG TABLET PO (09:52)
[2022-08-02] MEDS: Insulin Glargine-YFGN 100 UNIT/ML Pen 25 UNIT SC (09:52)
[2022-08-02 11:20] LABS: Bedside Glucose 209 mg/dL (74-106)
--- NOTE | 2022-08-02 11:27 | PN.HOSP_ITS ---
Subjective Subjective Doing well, no issues overnight Objective Data Objective Data Vital Signs: Vital Signs Temp Pulse Resp BP Pulse Ox O2 Del Method O2 Flow Rate 98.4 F 66 16 109/77 100 Nasal Cannula 2 08/02/22 11:21 08/02/22 11:21 08/02/22 11:21 08/02/22 11:21 08/02/22 11:21 08/02/22 11:21 08/02/22 11:21 Oxygen Flow Rate (L/min) 2 Oxygen Delivery Method Nasal Cannula Weight: 197 lb 12.074 oz Body Mass Index (BMI) 27.6 Intake & Output: Intake and Output for Last 24 Hours 08/01/22 08/02/22 08/03/22 03:59 03:59 03:59 Intake Total 250 / 250 4122.5 / 4122.5 200 / 200 Output Total 400 / 400 Balance 250 / 250 3722.5 / 3722.5 200 / 200 Lab / Micro Data Result Diagrams: 08/02/22 05:57 08/02/22 05:57 Labs: Laboratory Results - last 24 hr 07/31/22 17:50: Urine Color Araseli, Urine Clarity Clear, Urine pH 7.0, Ur Specific [place] 1.015, Urine Protein 100 H, Urine Glucose (UA) 1000 H, Urine Ketones 5 H, Urine Occult Blood Negative, Urine Nitrite Positive H, Urine Bilirubin 3 H, Urine Urobilinogen 12 H, Ur Leukocyte Esterase 500 H, Urine RBC 0-5 SEEN, Urine WBC 10-25 SEEN, Ur Squamous Epith Cells 0-5 SEEN, Amorphous Sediment 1+ PHOS, Urine Bacteria RARE, Urine Mucus 0 SEEN 08/01/22 06:15: Vitamin B12 693 08/01/22 12:13: POC Glucose 128 H 08/01/22 16:03: POC Glucose 201 H 08/01/22 21:01: POC Glucose 114 H 08/02/22 05:57: WBC 8.0, RBC 4.76, Hgb 10.8 L, Hct 38.0 L, MCV 79.8 L, MCH 22.7 L, MCHC 28.4 L, RDW Std Deviation 64.4 H, RDW Coeff of Estrada 22.6 H, Plt Count 192, MPV 10.2, Immature Gran % (Auto) 0.700, Neut % (Auto) 59.2, Lymph % (Auto) 27.6, [place] % (Auto) 10.4 H, Eos % (Auto) 1.5, Baso % (Auto) 0.6, Absolute Neuts (auto) 4.7, Absolute Lymphs (auto) 2.21, Nucleated RBC % 0.4, Hypochromasia 1+, Anisocytosis 2+, Microcytosis RARE, [place] Cells 1+ 08/02/22 05:57: PT 17.1 H, INR 1.4 08/02/22 05:57: Sodium 138, Potassium 4.2, Chloride 105, Carbon Dioxide 26.0, Anion Gap 7, BUN 17, Creatinine 1.05, Estim Creat Clear Calc 70.72, Est GFR (MDRD) Af Amer 90, Est GFR (MDRD) Non-Af 74, BUN/Creatinine Ratio 16.2, Glucose 209 H, Calcium 8.5, Phosphorus 3.2, Magnesium 1.9 08/02/22 06:37: POC Glucose 190 H 08/02/22 10:59: POC Glucose 209 H Micro: Microbiology 07/31/22 17:50 Urine, Clean Catch Urine Culture - Final Mixed Gram Positive Organisms 07/31/22 17:30 Nasal Secretion SARS-CoV-2 & FLU Antigen (Rapid) - Final Physical Exam Narrative General: Alert, Oriented x3, Cooperative, No apparent distress HEENT: Atraumatic, PERRLA, EOMI, Normocephalic Oral: Moist Mucosa Neck: Supple, No JVD Lungs: Clear to auscultation, Normal air movement, No rhonchi, No wheeze, No rales Cardiovascular: Regular rate, Regular Rhythm, Normal S1, Normal S2, No murmurs Abdomen: Soft, Non Tender, Non-Distended, No Hepato-splenomegaly Extremities: No edema, Capillary Refill Less than 3 Seconds Skin: No rashes, No breakdown Musculoskeletal: No Tenderness to Palpation of Joints or Extremities Neurological: Cranial nerves II-XII grossly intact, Motor Exam 5/5 strength throughout, Sensory exam intact to light touch and pain Psych/Mental Status: Flat affect, Appropriate Assessment & Plan Assessment/Plan (1) Urinary tract infection: (2) Generalized weakness: (3) Inability to walk: (4) Hypokalemia: (5) Hyperglycemia: PLAN: Plan 1. Acute cystitis/physical debility and deconditioning ? Patient started on Rocephin urine culture sent, culture is mixed ned ? We will do 1 more dose of Rocephin and then discontinue ? PT/OT for evaluation and possible placement, he has had multiple placements previously where he is left AMA and he is homeless living in his car 2.? Aortic valve disease/acute on chronic systolic CHF/CAD status post CABG/PAD status post femoropopliteal bypass/HLD/HTN ?Status post aortic valve replacement [facility] [facility] mechanical valve.? Patient INR is subtherapeutic apparently due to noncompliance.? Bridged with Lovenox with daily monitoring of INR ordered ?Echo obtained on 09/22/2021 demonstrated EF of 30% with moderate global hypokinesis.? Patient is on lisinopril as well as furosemide continued ?Blood pressures are stable, continue with his home blood pressure medications 3.? DM2 ?Did continue home regimen insulin Lantus and held patient metformin with Accu- Cheks before meals and at bedtime with sliding scale coverage ? We will make adjustments as necessary 4.? Anemia -Hemoglobin is chronically low, he is also microcytic total iron binding capacity was normal however no iron or ferritin was obtained, will obtain these today DVT: Coumadin Charges/Coding Visit Charges Inpatient E&M: 87710 Subs Hosp L2
[2022-08-02 12:32] LABS: Ferritin 25 ng/mL (26-388); Iron 33 ug/dL (65-175)
--- NOTE | 2022-08-02 12:51 | CASEMGMT ---
Addendum entered by Araseli Rivera 08/02/22 15:38: KALANI has not heard back from Emmanuelle. KALANI called [facility] to speak to Blair. Blair confirmed pt can be accepted. KALANI asked Blair to begin precert at this time. KALANI informed pt that [facility] has accepted. KALANI informed [facility] that pt has chosen another facility at this time. MELISSA Newberry Addendum entered by Araseli Rivera 08/02/22 14:15: KALANI received message from Emmanuelle at [facility] requesting a phone call. KALANI called Emmanuelle and updated that it was reported pt wanted a LTC placement following rehab as pt is homeless and wanting a stable living environment. Emmanuelle stated would check pt benefits and determine if can be accepted. KALANI informed there is another accepting facility and pt does not want to lose placement there if [facility] takes to long to respond. Emmanuelle stated would be running check on benefits now and will call this KALANI back aaron. Addendum entered by Araseli Rivera 08/02/22 13:26: KALANI received notice from KALANI Avilez that Blair at [facility] may not have access to [facility]. KALANI sent pt referral via regular fax. Will await determination. Original Note: Social Work? SW in to meet with pt following update from that pt will need placement at nursing facility. KALANI introduced self and role at the hospital. Pt agreeable to discussing discharge planning. A list of SNF providers including quality and resource use data consistent with the patient?s preferred geographic region, medical needs, and insurance network were provided from the [facility]. Pt reviewed list with KALANI and stated preference is [facility], as pt has been there in the past and [facility] allows residents to go outside and smoke. Pt stated second choice would be [facility]. KALANI sent referrals to both SNFs. KALANI then called Emmanuelle White ([phone]), admissions contact for [facility], to report a referral had been sent via [facility]. Emmanuelle did not answer and the voicemail was full. KALANI unable to leave . ?KALANI called [facility] directly, asked to speak to someone in admissions. KALANI spoke to Blair. Informed that referral had been sent and was waiting for review on [facility]. Blair voiced understanding and will review referral. PLAN: [facility] vs. [facility], pending acceptance and precert ? MELISSA Newberry?
[2022-08-02] MEDS: Glucerna Shake 120 ML LIQUID PO ×2 (13:45→15:57)
--- NOTE | 2022-08-02 15:51 | CASEMGMT ---
HERMINIA STANFORD DC Planning Assessment: Face to Face with patient for initial transition planning/care coordination assessment. Pt sitting up in chair and agreeable to participating in assessment. HERMINIA STANFORD introduced self and role at [facility], pt voices understanding. Care providers, pharmacy, and demographics verified. Pt answering questions appropriately but with short nondescriptive answers for many of the questions. Admitting Dx: FTT, Debility PCP: David Specialists: Guy (pain), Praveen (cardiology) Preferred Pharmacy: [facility] Insurance: [facility] Dual, [facility] CP Prescription Benefit: Yes Living Will/HPOA: Yes/Yes-HPOA Mariam Malcuit (cousin) LNOK: cousin-Mariam Living Arrangements: Pt states he has been living in his car. When asked about ADL's, pt states he performed them the best that I could do. Pt would not elaborate on where or how he performs personal hygiene. Transportation: Pt drives DME: shower chair, cane, walker, rollator (states he does have these items in his car). States he had a glucometer but that is it is currently missing. Pt states he has his insulin and has been taking this appropriately. SNF: Has been to [facility], [facility], and [facility] in the past HHC: none Plan: SNF Pt would not further elaborate on future discharge needs. Letitia Esquivel RN CM
[2022-08-02] MEDS: Insulin Lispro 100 UNIT/ML INSULN.PEN 10 UNIT SC (15:53)
[2022-08-02 16:21] LABS: Bedside Glucose 157 mg/dL (74-106)
[2022-08-02] MEDS: DOXEPIN HCL 50 MG CAPSULE PO (21:15)
[2022-08-02] MEDS: Atorvastatin Calcium 40 MG Tablet PO (21:15)
[2022-08-02] MEDS: Ceftriaxone 1 GM/50 ML BAG IV (21:18)
[2022-08-03] VITALS (9 sets, daily range): BP systolic 70–127; BP diastolic 53–96; PULSE 51–69; RESP 18–32; TEMP 36.4–36.9; O2SAT 90–100
[2022-08-03 00:06] LABS: Bedside Glucose 76 mg/dL (74-106)
--- NOTE | 2022-08-03 01:20 | NURSING ---
BLOOD SUGAR 59, JUICE GIVEN
--- NOTE | 2022-08-03 02:19 | RAD_ITS ---
STUDY: X-RAY CHEST REASON FOR EXAM: Male, 71 years old. sob TECHNIQUE: Single AP portable view of the chest. COMPARISON: 07/31/2022 FINDINGS: There is a large right pleural effusion with compressive atelectasis in the right lung base without significant change since the previous study. Normal size heart. Normal mediastinum and thu. Normal visualized pulmonary arteries. Normal visualized aortic arch and descending thoracic aorta. Normal visualized thoracic spine. Normal visualized ribs, clavicles, and shoulders. There is no demonstrated abnormality of the visualized soft tissue structures of the upper abdomen. RAD/Chest 1 View IMPRESSION: There is a large right pleural effusion with compressive atelectasis in the right lung base without significant change since the previous study. Electronically Signed: Katelynn Cruz MD at 2:42 EST ,
[2022-08-03 02:20] LABS: Bedside Glucose 59 mg/dL (74-106)
[2022-08-03] MEDS: Furosemide 20 MG/2 ML VIAL IV (03:05)
--- NOTE | 2022-08-03 03:10 | NURSING ---
BLOOD SUGAR 43, DR LOPEZ TEXTED, STAT LAB DRAW ORDERED, WAS NOTIFIED OF THE PT LUNGS SOUNDS W LITTLE TO NO AIR EXCHANGE HEARD, CXRAY AND LASIX ORDERED, NOTIFIED OF LOWER BP. LASIX STILL TO BE GIVEN. AMP D50 ALSO GIVEN
--- NOTE | 2022-08-03 03:10 | PCM.PN.BLA ---
Progress Note Blood glucose in the 30s. Nursing to follow nursing protocol per hypoglycemia. Discontinue oral hypoglycemic regimen.
[2022-08-03] MEDS: Dextrose 50%-Water 25 GM/50 ML DISP.SYRIN IV ×3 (03:17→21:07)
[2022-08-03 03:32] LABS: Absolute Lymphocyte Count 2.58 X10^3/uL (0.83-4.51); Absolute Neutrophil Count 5.9 X10^3/uL (2.0-7.7); Basophil# 0.06 X10^3/uL; Basophil% 0.6 % (0-1); Eosinophil# 0.12 X10^3/uL; Eosinophils% 1.2 % (0-5); Hematocrit 34.1 % (40-54); Hemoglobin 9.7 g/dL (13.0-16.5); Lymphocyte # 2.58 X10^3/ul (0.83-4.51); Lymphocyte % 26.5 % (19-41); Mean Corp Hgb Conc 28.4 g/dL (32-36); Mean Corpuscular Hgb 22.8 pg (27.0-32.0); Monocyte# 1.04 X10^3/uL; Monocyte% 10.7 % (0-10); NRBC Flagged by Analyzer 0.4 % (0-5); Neutrophil # 5.87 X10^3/uL (2.7-7.7); Neutrophil % 60.5 % (47-70); POSITIVE MORPHOLOGY YES; Platelet Count 198 K/mm3 (150-450); RBC Distribution Width SD 63.6 fl (35.1-43.9); Red Blood Count 4.26 M/mm3 (4.6-6.2); White Blood Count 9.7 K/mm3 (4.4-11.0)
[2022-08-03 03:34] LABS: Differential Indicated SCAN CRITERIA MET
[2022-08-03 03:43] LABS: Anion Gap 9 (5-15); BUN 28 mg/dL (7-18); BUN/Creat Ratio 16.7 RATIO (10-20); Chloride 103 mmol/L (98-107); Creatinine, Serum 1.68 mg/dL (0.70-1.30); EST Glomerular Filtration Rate 43 mL/min (>60); Est Glom Filt Rate - Afr Amer 52 mL/min (>60); Glucose 140 mg/dL (74-106); Potassium 5.3 mmol/L (3.5-5.1); Sodium Level 136 mmol/L (136-145)
[2022-08-03 03:45] LABS: Bedside Glucose 43 mg/dL (74-106)
[2022-08-03 04:12] LABS: Anisocytosis 1+; Differential Comment SCANNED; Microcytosis 1+; Ovalocyte RARE; Polychromasia RARE
--- NOTE | 2022-08-03 05:36 | NURSING ---
BLOOD SUGAR 62, JUICE AND CRACKERS W PEANUT BUTTER GIVEN
[2022-08-03 05:56] LABS: Bedside Glucose 62 mg/dL (74-106)
[2022-08-03 07:30] LABS: Bedside Glucose 141 mg/dL (74-106)
[2022-08-03] MEDS: Enoxaparin 100 MG/ML Syringe 90 MG SC ×2 (08:32→21:09)
[2022-08-03] MEDS: Gabapentin 100 MG Capsule PO ×2 (08:33→18:43)
[2022-08-03] MEDS: Glucerna Shake 120 ML LIQUID PO ×3 (08:33→18:43)
--- NOTE | 2022-08-03 10:51 | PCM.PN.HOSP ---
Subjective Subjective No issues overnight, lab work this morning is significantly altered so we will repeat Objective Data Objective Data Vital Signs: Vital Signs Temp Pulse Resp BP Pulse Ox O2 Del Method O2 Flow Rate 97.6 F L 51 L 20 H 127/96 H 94 Nasal Cannula 2 08/03/22 08:00 08/03/22 08:00 08/03/22 08:00 08/03/22 08:00 08/03/22 08:00 08/03/22 08:00 08/03/22 08:00 Oxygen Flow Rate (L/min) 2 Oxygen Delivery Method Nasal Cannula Weight: 197 lb 12.074 oz Body Mass Index (BMI) 27.6 Intake & Output: Intake and Output for Last 24 Hours 08/02/22 08/03/22 08/04/22 03:59 03:59 03:59 Intake Total 4122.5 / 4122.5 950 / 950 460 / 460 Output Total 400 / 400 150 / 150 75 / 75 Balance 3722.5 / 3722.5 800 / 800 385 / 385 Lab / Micro Data Result Diagrams: 08/03/22 03:24 08/03/22 03:24 Labs: Laboratory Results - last 24 hr 08/02/22 05:57: Iron 33 L, Ferritin 25 L 08/02/22 10:59: POC Glucose 209 H 08/02/22 15:52: POC Glucose 157 H 08/02/22 23:14: POC Glucose 76 08/03/22 01:18: POC Glucose 59 L 08/03/22 02:56: POC Glucose 43 L* 08/03/22 03:24: WBC 9.7, RBC 4.26 L, Hgb 9.7 L, Hct 34.1 L, MCV 80.0, MCH 22.8 L, MCHC 28.4 L, RDW Std Deviation 63.6 H, RDW Coeff of Estrada 22.0 H, Plt Count 198, MPV TNP, Immature Gran % (Auto) 0.500, Neut % (Auto) 60.5, Lymph % (Auto) 26.5, [place] % (Auto) 10.7 H, Eos % (Auto) 1.2, Baso % (Auto) 0.6, Absolute Neuts (auto) 5.9, Absolute Lymphs (auto) 2.58, Nucleated RBC % 0.4, Differential Comment SCANNED, Polychromasia RARE, Anisocytosis 1+, Microcytosis 1+, Ovalocytes RARE 08/03/22 03:24: Sodium 136, Potassium 5.3 H, Chloride 103, Carbon Dioxide 24.0, Anion Gap 9, BUN 28 H, Creatinine 1.68 H, Estim Creat Clear Calc 44.20, Est GFR (MDRD) Af Amer 52 L, Est GFR (MDRD) Non-Af 43 L, BUN/Creatinine Ratio 16.7, Glucose 140 H, Calcium 8.0 L 08/03/22 03:24: Glucose Cancelled 08/03/22 05:31: POC Glucose 62 L 08/03/22 06:42: POC Glucose 141 H Micro: Microbiology 07/31/22 17:50 Urine, Clean Catch Urine Culture - Final Mixed Gram Positive Organisms 07/31/22 17:30 Nasal Secretion SARS-CoV-2 & FLU Antigen (Rapid) - Final Radiography Diagnostic Testing: Radiology Impression Chest X-Ray 08/03/22 02:19 IMPRESSION: There is a large right pleural effusion with compressive atelectasis in the right lung base without significant change since the previous study. Electronically Signed: Katelynn Cruz MD at 2:42 EST Reading Location ID and State: [facility] / [place] Tel , Service support , Physical Exam Narrative General: Alert, Cooperative, No apparent distress HEENT: Atraumatic, PERRLA, EOMI, Normocephalic Oral: Moist Mucosa Neck: Supple, No JVD Lungs: Clear to auscultation, Normal air movement, No rhonchi, No wheeze, No rales Cardiovascular: Regular rate, Regular Rhythm, Normal S1, Normal S2, No murmurs Abdomen: Soft, Non Tender, Non-Distended, No Hepato-splenomegaly Extremities: No edema, Capillary Refill Less than 3 Seconds Skin: No rashes, No breakdown Musculoskeletal: No Tenderness to Palpation of Joints or Extremities Neurological: Cranial nerves II-XII grossly intact, Motor Exam 5/5 strength throughout, Sensory exam intact to light touch and pain Psych/Mental Status: Flat affect, Appropriate Assessment & Plan Assessment/Plan (1) Urinary tract infection: (2) Generalized weakness: (3) Inability to walk: (4) Hypokalemia: (5) Hyperglycemia: PLAN: Plan 1.? Acute cystitis/physical debility and deconditioning ? Patient started on Rocephin urine culture sent, culture is mixed ned ? We will do 1 more dose of Rocephin and then discontinue ? PT/OT for evaluation and possible placement, he has had multiple placements previously where he is left AMA and he is homeless living in his car 2.? Aortic valve disease/acute on chronic systolic CHF/CAD status post CABG/PAD status post femoropopliteal bypass/HLD/HTN ?Status post aortic valve replacement [facility] mechanical valve.? Patient INR is subtherapeutic apparently due to noncompliance.? Bridged with Lovenox with daily monitoring of INR ordered ?Echo obtained on 09/22/2021 demonstrated EF of 30% with moderate global hypokinesis.? Patient is on lisinopril as well as furosemide continued ?Blood pressures are stable, continue with his home blood pressure medications 3.? DM2 ?He was hypoglycemic overnight, will discontinue his long-acting insulin ? Sliding scale insulin with Accu-Cheks at bedtime ? We will make adjustments as necessary 4.? Anemia -Hemoglobin is chronically low ? His ferritin and iron are both low, will give him a dose of IV iron today DVT: Coumadin Charges/Coding Visit Charges Inpatient E&M: 59077 Subs Hosp L2
[2022-08-03 11:31] LABS: Bedside Glucose 28 mg/dL (74-106)
[2022-08-03 11:36] LABS: Anion Gap 8 (5-15); BUN 32 mg/dL (7-18); BUN/Creat Ratio 16.2 RATIO (10-20); Calcium,Total 8.4 mg/dL (8.5-10.1); Chloride 103 mmol/L (98-107); Creatinine, Serum 1.98 mg/dL (0.70-1.30); EST Glomerular Filtration Rate 36 mL/min (>60); Est Glom Filt Rate - Afr Amer 43 mL/min (>60); Glucose 64 mg/dL (74-106); Sodium Level 132 mmol/L (136-145)
[2022-08-03] MEDS: Dextrose 5%/0.9% NaCl 1,000 ML 75 ML IV ×2 (11:42→23:35)
[2022-08-03] MEDS: 0.9% Saline Lock 10 ML Syringe IV (12:28)
[2022-08-03 12:30] LABS: Bedside Glucose 107 mg/dL (74-106)
[2022-08-03 12:30] LABS: Bedside Glucose 42 mg/dL (74-106)
[2022-08-03 12:30] LABS: Bedside Glucose 51 mg/dL (74-106)
[2022-08-03 14:00] LABS: Bedside Glucose 78 mg/dL (74-106)
[2022-08-03] MEDS: Insulin Lispro 100 UNIT/ML INSULN.PEN SC ×2 (15:43→22:57)
[2022-08-03 16:11] LABS: Bedside Glucose 187 mg/dL (74-106)
[2022-08-03 19:55] LABS: Anion Gap 7 (5-15); BUN 35 mg/dL (7-18); BUN/Creat Ratio 16.3 RATIO (10-20); Calcium,Total 8.4 mg/dL (8.5-10.1); Chloride 103 mmol/L (98-107); Creatinine, Serum 2.15 mg/dL (0.70-1.30); EST Glomerular Filtration Rate 33 mL/min (>60); Est Glom Filt Rate - Afr Amer 39 mL/min (>60); Estimated Creatinine Clearance 34.54 ml/min; Glucose 178 mg/dL (74-106); Potassium 6.2 mmol/L (3.5-5.1); Sodium Level 133 mmol/L (136-145)
--- NOTE | 2022-08-03 20:05 | EKG12_ITS ---
Test Reason : DYSRHYTHMIA Blood Pressure : / mmHG Vent. Rate : 070 BPM Atrial Rate : 070 BPM P-R Int : 144 ms QRS Dur : 074 ms QT Int : 378 ms P-R-T Axes : -14 036 103 degrees QTc Int : 408 ms Normal sinus rhythm Low voltage QRS Septal infarct (cited on or before 21-SEP-2021) Abnormal ECG When compared with ECG of 31-JUL-2022 17:14, Minimal criteria for Inferior infarct are no longer Present QT has shortened Confirmed by EVARISTO CHAPA, JORDAN ([id number]), newspaper or periodical editor STANISLAV OVIEDO ([id number]) on 08/05/2022 8:28:47 AM Referred By: ARLETTE Confirmed By:JORDAN LOERA MD
[2022-08-03] MEDS: Sodium Polystyrene Sulfonate 15 GM/60 ML UDC 30 GM PO (21:04)
[2022-08-03] MEDS: Insulin Lispro 100 UNIT/ML INSULN.PEN 10 UNIT SC (21:07)
[2022-08-03] MEDS: Polyethylene Glycol 3350 17 GM PACKET 34 GM PO (21:07)
[2022-08-03] MEDS: DOXEPIN HCL 50 MG CAPSULE PO (21:08)
[2022-08-03] MEDS: Atorvastatin Calcium 40 MG Tablet PO (21:09)
[2022-08-03 21:51] LABS: Bedside Glucose 107 mg/dL (74-106)
[2022-08-03] MEDS: Albuterol *CONC* 2.5mg/0.5mL VIAL.NEB. 10 MG INHALATION (22:40)
--- NOTE | 2022-08-03 22:51 | CPS ---
X4 DOSES OF 2.5/0.5 ALBUTEROL GIVEN FOR HYPERKALEMIA. 10 MG TOTAL
[2022-08-03] MEDS: Ceftriaxone 1 GM/50 ML BAG IV (22:57)
[2022-08-03 23:11] LABS: Bedside Glucose 399 mg/dL (74-106)
[2022-08-04] VITALS (7 sets, daily range): BP systolic 89–140; BP diastolic 46–78; PULSE 72–80; RESP 18–28; TEMP 35.8–37; O2SAT 94–100
--- NOTE | 2022-08-04 | IMM_PTH ---
PATIENT: RAPHAEL HADDAD LOC: MS3 U#:[id number] AGE/SX: 71/M ROOM: [facility] RE08/01/[address]: Dr. Fernandez Rosario MD : 1950 BED: 1 DIS: 08/05/2022 SPEC #: [id number] RECD: 08/06/22 13:31 STATUS: RICH REQ #: [id number] MATIAS: 08/04/22 00:[address]: Fernandez Rosario DEPT: IMMUNOHISTOCHEMISTRY RECD BY: Paula Byers ENTERED: 08/06/22 13:32 SP TYPE: IMMUNO OTHR DR: MD Dr. Cami Kolb MD Dr. Tai Chi Kwok, MD Tissues: THORACIC FLUID Procedures: Elio Ret (add) CK20 (add) CK5-6 (add) CK7 (add) Pankeratin (initial) P40 (add) PHYSICIAN & [place] [id number] SPECIMEN INFORMATION: Tissue Source: Thoracentesis fluid Clinical Info: Right pleural effusion Specimen Number: [id number] CPT code: 79950, 57048 x5 METHODOLOGY: Deparaffinized sections of prefer/formalin-fixed tissue or PAP/DQ stained slides are incubated with monoclonal/polyclonal antibodies/oligonucleotide probes. Localization is made via biotin free immunoperoxidase method. Appropriate controls are performed and reacted as expected. Results on target cell population are indicated in the following table: RESULTS: ANTIBODY / CLONE RESULT AE1-3 (AE1/AE3/PCK26) positive CK7 (OV-TL12/30) positive CK20 (KS20.8) negative CALRET (polyclonal) positive CK5-6 (D5 & 1684) positive P40 (BC28) negative These tests were developed and their performance characteristics determined by [facility]. They may not have been cleared or approved by the U.S. Food and Drug Administration. The FDA has determined that such clearance or approval is not necessary. The above immunohistochemical/dualISH markers are ordered and reviewed by the Pathologist. INTERPRETATION: Thoracentesis fluid (cell block): No evidence of malignancy. AM:valencia 08/09/2022
--- NOTE | 2022-08-04 | FLU_PTH ---
PATIENT: RAPHAEL HADDAD LOC: MS3 U#:[id number] AGE/SX: 71/M ROOM: [facility] RE08/01/[address]: Dr. Fernandez Rosario MD : 1950 BED: 1 DIS: 08/05/2022 SPEC #: [id number] RECD: 08/05/22 11:40 STATUS: RICH REYan #: [id number] MATIAS: 08/04/22 00:[address]: Fernandez Rosario DEPT: CYTOLOGY RECD BY: Bee Jeronimo ENTERED: 08/05/22 11:40 SP TYPE: Fluid OTHR DR: MD Dr. Cami Kolb MD Dr. Tai Chi Kwok, MD Tissues: Pleural fluid, NOS Procedures: Special Stain Group II Surgery Specimen Level IV Cytospin Fluid HEADER OPERATION: Ultrasound-guided right thoracentesis PRE-OP DIAGNOSIS: Right pleural effusion TISSUE SUBMITTED: Thoracentesis fluid for cytology DIAGNOSIS CYTOLOGY Thoracentesis fluid for cytology (cytospin and cell block): Negative for malignant cells. See comment. AM:valencia 08/06/2022 COMMENT Immunohistochemistry ([id number]) supports the above diagnosis. CYTOLOGY STUDY Slides are reviewed. CYTOLOGY GROSS Received is 80 ml of yellow cloudy fluid labeled with the patient's name and and designated per the requisition as thoracentesis. Submitted for cytology preparation including cell block. / valencia 08/05/2022 TC:5 CPT: 86990, 89196
[2022-08-04 00:28] LABS: BUN 37 mg/dL (7-18); Calcium,Total 8.4 mg/dL (8.5-10.1); Creatinine, Serum 2.06 mg/dL (0.70-1.30); Estimated Creatinine Clearance 36.05 ml/min; Glucose 202 mg/dL (74-106); Sodium Level 133 mmol/L (136-145)
[2022-08-04 00:29] LABS: Anion Gap 9 (5-15); Chloride 103 mmol/L (98-107)
[2022-08-04] MEDS: Dextrose 50%-Water 25 GM/50 ML DISP.SYRIN IV (01:40)
[2022-08-04] MEDS: Insulin Lispro 100 UNIT/ML INSULN.PEN 10 UNIT SC (01:40)
[2022-08-04] MEDS: Sodium Polystyrene Sulfonate 15 GM/60 ML UDC 30 GM PO (01:40)
[2022-08-04] MEDS: Polyethylene Glycol 3350 17 GM PACKET PO (03:00)
[2022-08-04 04:00] LABS: Bedside Glucose 231 mg/dL (74-106)
[2022-08-04 04:00] LABS: Bedside Glucose 220 mg/dL (74-106)
[2022-08-04 04:35] LABS: EST Glomerular Filtration Rate 34 mL/min (>60); Est Glom Filt Rate - Afr Amer 41 mL/min (>60); Potassium 6.1 mmol/L (3.5-5.1)
[2022-08-04 06:43] LABS: Absolute Lymphocyte Count 1.55 X10^3/uL (0.83-4.51); Absolute Neutrophil Count 6.4 X10^3/uL (2.0-7.7); Basophil# 0.03 X10^3/uL; Basophil% 0.3 % (0-1); Eosinophil# 0.08 X10^3/uL; Eosinophils% 0.9 % (0-5); Hematocrit 31.2 % (40-54); Hemoglobin 9.3 g/dL (13.0-16.5); Lymphocyte # 1.55 X10^3/ul (0.83-4.51); Mean Corp Hgb Conc 29.8 g/dL (32-36); Mean Corpuscular Hgb 22.7 pg (27.0-32.0); Mean Corpuscular Volume 76.3 fL (80-94); Monocyte# 1.01 X10^3/uL; Monocyte% 11.1 % (0-10); NRBC Flagged by Analyzer 0.4 % (0-5); Neutrophil # 6.39 X10^3/uL (2.7-7.7); Neutrophil % 70.2 % (47-70); POSITIVE MORPHOLOGY YES; Platelet Count 165 K/mm3 (150-450); RBC Distribution Width CV 21.6 % (11.6-14.6); RBC Distribution Width SD 59.5 fl (35.1-43.9); Red Blood Count 4.09 M/mm3 (4.6-6.2); White Blood Count 9.1 K/mm3 (4.4-11.0)
[2022-08-04 06:45] LABS: Differential Indicated SCAN CRITERIA MET
[2022-08-04 07:03] LABS: Anion Gap 9 (5-15); BUN 37 mg/dL (7-18); BUN/Creat Ratio 20.3 RATIO (10-20); Calcium,Total 7.7 mg/dL (8.5-10.1); Chloride 104 mmol/L (98-107); Creatinine, Serum 1.82 mg/dL (0.70-1.30); EST Glomerular Filtration Rate 39 mL/min (>60); Est Glom Filt Rate - Afr Amer 48 mL/min (>60); Glucose 133 mg/dL (74-106); Potassium 4.6 mmol/L (3.5-5.1); Sodium Level 135 mmol/L (136-145)
[2022-08-04 07:05] LABS: Bedside Glucose 129 mg/dL (74-106)
[2022-08-04 07:07] LABS: Anisocytosis 1+; Differential Comment SCANNED; Hypochromasia 1+; Microcytosis 1+
--- NOTE | 2022-08-04 07:15 | US_ITS ---
PROCEDURE: ULTRASOUND GUIDED THORACENTESIS. DATE: 08/04/2022.. INDICATION: Male, 71 years old. Right pleural effusion. PHYSICIAN: Lázaro Archer M.D. PROCEDURE: The risks, benefits, and alternatives to the procedure were explained to the patient. The specific risks of bleeding, infection, and pneumothorax requiring chest tube insertion were discussed and accepted. Written informed consent was obtained. Ultrasonographic evaluation of the right lower pleural space was carried out. An adequate pocket was identified. The patient was placed in the sitting, upright position. The overlying skin was prepped and draped in sterile fashion. 1% lidocaine was administered subcutaneously for local anesthesia. Under ultrasound guidance, a 5French thoracentesis needle/catheter system was advanced into the right posterior lower pleural fluid collection. Approximately 1850 mL of garry-colored fluid was drained. The catheter was removed, and a sterile dressing was applied. A specimen was collected and sent to the laboratory for analysis, as requested by the referring clinician. The patient tolerated the procedure well. A chest x-ray was ordered. US/Thoracentesis W US IMPRESSION: Ultrasound-guided right thoracentesis. Electronically Signed: Lázaro Archer MD at 14:30 EST ,
[2022-08-04] MEDS: Gabapentin 100 MG Capsule PO ×2 (08:44→17:09)
[2022-08-04] MEDS: Glucerna Shake 120 ML LIQUID PO ×4 (08:44→21:36)
[2022-08-04] MEDS: Metoprolol(XL)Succ 25 MG Tablet 75 MG PO (08:44)
--- NOTE | 2022-08-04 08:53 | CASEMGMT ---
Addendum entered by Araseli Rivera 08/04/22 09:03: [facility] has limited responses on [facility] so this SW called and inquired about precert. SW left a message with statistical secretary as admissions team was in a meeting. SW left a call back number. Original Note: Social Work SW reached out to [facility] via [facility] for news of precert. Will continue to follow for updates. MELISSA Newberry
[2022-08-04 09:16] LABS: Bedside Glucose 117 mg/dL (74-106)
--- NOTE | 2022-08-04 09:29 | PN.HOSP_ITS ---
Subjective Subjective Feeling a little bit better today, still little bit short of breath Objective Data Objective Data Vital Signs: Vital Signs Temp Pulse Resp BP Pulse Ox O2 Del Method O2 Flow Rate 98.6 F 74 18 115/62 96 Nasal Cannula 2 08/04/22 09:00 08/04/22 09:00 08/04/22 09:00 08/04/22 09:00 08/04/22 09:00 08/04/22 09:05 08/04/22 09:05 Oxygen Flow Rate (L/min) 2 Oxygen Delivery Method Nasal Cannula Weight: 197 lb 12.074 oz Body Mass Index (BMI) 27.6 Intake & Output: Intake and Output for Last 24 Hours 08/03/22 08/04/22 08/05/22 03:59 03:59 03:59 Intake Total 950 / 950 1623.75 / 1623.75 Output Total 150 / 150 75 / 75 Balance 800 / 800 1548.75 / 1548.75 Lab / Micro Data Result Diagrams: 08/04/22 06:30 08/04/22 06:30 Labs: Laboratory Results - last 24 hr 08/03/22 08:26: POC Glucose 107 H 08/03/22 11:05: Sodium 132 L, Potassium 6.0 H*, Chloride 103, Carbon Dioxide 21.0, Anion Gap 8, BUN 32 H, Creatinine 1.98 H, Estim Creat Clear Calc 37.50, Es t GFR (MDRD) Af Amer 43 L, Est GFR (MDRD) Non-Af 36 L, BUN/Creatinine Ratio 16.2, Glucose 64 L, Calcium 8.4 L 08/03/22 11:05: Glucose Cancelled 08/03/22 11:10: POC Glucose 28 L* 08/03/22 11:34: POC Glucose 42 L* 08/03/22 12:12: POC Glucose 51 L 08/03/22 13:32: POC Glucose 78 08/03/22 15:40: POC Glucose 187 H 08/03/22 19:16: Sodium 133 L, Potassium 6.2 H*, Chloride 103, Carbon Dioxide 23.0, Anion Gap 7, BUN 35 H, Creatinine 2.15 H, Estim Creat Clear Calc 34.54, Est GFR (MDRD) Af Amer 39 L, Est GFR (MDRD) Non-Af 33 L, BUN/Creatinine Ratio 16.3, Glucose 178 H, Calcium 8.4 L 08/03/22 21:00: POC Glucose 107 H 08/03/22 22:45: POC Glucose 399 H 08/04/22 00:04: Sodium 133 L, Potassium 6.1 H*, Chloride 103, Carbon Dioxide 21.0, Anion Gap 9, BUN 37 H, Creatinine 2.06 H, Estim Creat Clear Calc 36.05, Est GFR (MDRD) Af Amer 41 L, Est GFR (MDRD) Non-Af 34 L, BUN/Creatinine Ratio 18.0, Glucose 202 H, Calcium 8.4 L 08/04/22 00:08: POC Glucose 220 H 08/04/22 02:58: POC Glucose 231 H 08/04/22 06:30: WBC 9.1, RBC 4.09 L, Hgb 9.3 L, Hct 31.2 L, MCV 76.3 L, MCH 22.7 L, MCHC 29.8 L, RDW Std Deviation 59.5 H, RDW Coeff of Estrada 21.6 H, Plt Count 165, MPV TNP, Immature Gran % (Auto) 0.500, Neut % (Auto) 70.2 H, Lymph % (Auto) 17.0 L, [place] % (Auto) 11.1 H, Eos % (Auto) 0.9, Baso % (Auto) 0.3, Absolute Neuts (auto) 6.4, Absolute Lymphs (auto) 1.55, Nucleated RBC % 0.4, Differential Comment SCANNED, Hypochromasia 1+, Anisocytosis 1+, Microcytosis 1+ 08/04/22 06:30: Sodium 135 L, Potassium 4.6, Chloride 104, Carbon Dioxide 22.0, Anion Gap 9, BUN 37 H, Creatinine 1.82 H, Estim Creat Clear Calc 40.80, Est GFR (MDRD) Af Amer 48 L, Est GFR (MDRD) Non-Af 39 L, BUN/Creatinine Ratio 20.3 H, Glucose 133 H, Calcium 7.7 L 08/04/22 06:46: POC Glucose 129 H 08/04/22 08:49: POC Glucose 117 H Micro: Microbiology 07/31/22 17:50 Urine, Clean Catch Urine Culture - Final Mixed Gram Positive Organisms 07/31/22 17:30 Nasal Secretion SARS-CoV-2 & FLU Antigen (Rapid) - Final Physical Exam Narrative General: Alert, Cooperative, No apparent distress HEENT: Atraumatic, PERRLA, EOMI, Normocephalic Oral: Moist Mucosa Neck: Supple, No JVD Lungs: Diminished right more than left, Normal air movement, No rhonchi, No wheeze, No rales Cardiovascular: Regular rate, Regular Rhythm, Normal S1, Normal S2, No murmurs Abdomen: Soft, Non Tender, Non-Distended, No Hepato-splenomegaly Extremities: No edema, Capillary Refill Less than 3 Seconds Skin: No rashes, No breakdown Musculoskeletal: No Tenderness to Palpation of Joints or Extremities Neurological: Cranial nerves II-XII grossly intact, Motor Exam 5/5 strength throughout, Sensory exam intact to light touch and pain Psych/Mental Status: Flat affect, Appropriate Assessment & Plan Assessment/Plan (1) Urinary tract infection: (2) Generalized weakness: (3) Inability to walk: (4) Hypokalemia: (5) Hyperglycemia: PLAN: Plan 1.? Acute cystitis/physical debility and deconditioning/pleural effusion with an ZOFIA ? Patient started on Rocephin urine culture sent, culture is mixed ned ? We will do 1 more dose of Rocephin and then discontinue ? PT/OT for evaluation and possible placement, he has had multiple placements previously where he is left AMA and he is homeless living in his car ? Chest x-ray demonstrated a pleural effusion on admission, he has become more diminished today on the right side so we will proceed with a thoracentesis to be both therapeutic and diagnostic ? Is possible that his ZOFIA is prerenal he did receive Lasix the night before because of his shortness of breath. We will continue with IV fluids, his renal function is improved, he was also given Kayexalate overnight and his potassium is improved to 4.6 2.? Aortic valve disease/acute on chronic systolic CHF/CAD status post CABG/PAD status post femoropopliteal bypass/HLD/HTN ?Status post aortic valve replacement [facility] mechanical valve.? Patient INR is subtherapeutic apparently due to noncompliance.? Bridged with Lovenox with daily monitoring of INR ordered, will temporarily hold Lovenox and Coumadin for thoracentesis ?Echo obtained on 09/22/2021 demonstrated EF of 30% with moderate global hypokinesis.? Patient is on lisinopril as well as furosemide which have been held secondary to his ZOFIA ?Blood pressures are stable, continue with his home blood pressure medications 3.? DM2 ?He was hypoglycemic overnight, will discontinue his long-acting insulin ? Sliding scale insulin with Accu-Cheks at bedtime ? We will make adjustments as necessary 4.? Anemia -Hemoglobin is chronically low ? His ferritin and iron are both low, will give him a dose of IV iron today DVT: Coumadin, will hold for thoracentesis Charges/Coding Visit Charges Inpatient E&M: 14511 Subs Hosp L2
[2022-08-04 10:29] LABS: International Normalized Ratio 3.2
[2022-08-04 10:31] LABS: Partial Thromboplast Time 69.4 Seconds (24.1-36.2)
[2022-08-04 11:06] LABS: Bedside Glucose 120 mg/dL (74-106)
[2022-08-04] MEDS: Dextrose 5%/0.9% NaCl 1,000 ML 75 ML IV (13:03)
[2022-08-04] MEDS: Lidocaine 2% (20 ml mdv) 20 ML Vial (13:44)
--- NOTE | 2022-08-04 14:00 | RAD_ITS ---
STUDY: X-RAY CHEST REASON FOR EXAM: Male, 71 years old. Pneumothorax -- immediately post thoracentesis TECHNIQUE: AP inspiration and expiration views. COMPARISON: Comparison is made with prior examination of 01/31/2023. FINDINGS: The patient is status post right thoracentesis. No evidence of pneumothorax. Mild degree of residual pleural parenchymal changes at the right lung base. Hiatal hernia. RAD/Chest Insp/Exp 2 View IMPRESSION: Status post right thoracentesis. No evidence of pneumothorax. Electronically Signed: Lázaro Archer MD at 14:14 EST ,
[2022-08-04] MEDS: Phytonadione (Vit K1) 5 MG TABLET PO (14:57)
[2022-08-04] MEDS: Acetaminophen 325 MG Tablet 650 MG PO (15:13)
[2022-08-04 16:04] LABS: Auto B Fluid Analyzer BKGD Ct COUNTS W/IN LIMITS (W/IN LIMITS)
[2022-08-04] MEDS: Insulin Lispro 100 UNIT/ML INSULN.PEN SC ×2 (16:04→21:36)
[2022-08-04 16:05] LABS: Appearance/Body Fluid CLEAR; Color/Body Fluid YELLOW; Source- Body Fluid THORACENTESIS
[2022-08-04 16:06] LABS: Red Cell Count/Body Fluid 46 /mm3; White Blood Count/Body Fluid 0.159 10^3/uL
[2022-08-04 16:11] LABS: Glucose, Body Fluid 150 mg/dL (40-70); LDH,Body Fluid 78 Units/l (Not Establ.); Protein, Body Fluid 1.9 g/dL (Not Establ.)
[2022-08-04 16:26] LABS: Bedside Glucose 155 mg/dL (74-106)
[2022-08-04 16:27] LABS: Lymphocytes 36 %; Macrophages 8 %; Monocytes 10 %; Neutrophil (Segs) 46 %
[2022-08-04 16:28] LABS: Body Fluid QC Type(s) BF1Q,BF2Q
[2022-08-04 16:48] LABS: LDH 363 U/L (87-241)
[2022-08-04 17:35] LABS: Body Fluid Mononuclear WBC # 0.117 10^3/uL; Body Fluid Mononuclear WBC % 73.6 %; Body Fluid Polynuclear WBC % 26.4 %
[2022-08-04 17:36] LABS: Body Fluid Polynuclear WBC # 0.042 10^3/uL
[2022-08-04] MEDS: Atorvastatin Calcium 40 MG Tablet PO (21:36)
[2022-08-04] MEDS: DOXEPIN HCL 50 MG CAPSULE PO (21:36)
[2022-08-04 23:00] LABS: Bedside Glucose 192 mg/dL (74-106)
[2022-08-05] VITALS (8 sets, daily range): BP systolic 111–133; BP diastolic 65–93; PULSE 72–87; RESP 18–20; TEMP 36.4–37.2; O2SAT 91–98
[2022-08-05] MEDS: Insulin Lispro 100 UNIT/ML INSULN.PEN SC ×2 (06:09→11:28)
[2022-08-05 06:36] LABS: Bedside Glucose 207 mg/dL (74-106)
[2022-08-05 06:38] LABS: Absolute Lymphocyte Count 1.09 X10^3/uL (0.83-4.51); Absolute Neutrophil Count 4.5 X10^3/uL (2.0-7.7); Basophil# 0.03 X10^3/uL; Basophil% 0.5 % (0-1); Eosinophils% 1.5 % (0-5); Hematocrit 31.3 % (40-54); Hemoglobin 9.1 g/dL (13.0-16.5); Lymphocyte # 1.09 X10^3/ul (0.83-4.51); Lymphocyte % 16.7 % (19-41); Mean Corp Hgb Conc 29.1 g/dL (32-36); Mean Corpuscular Hgb 22.6 pg (27.0-32.0); Mean Corpuscular Volume 77.9 fL (80-94); Monocyte# 0.76 X10^3/uL; Monocyte% 11.7 % (0-10); NRBC Flagged by Analyzer 0 % (0-5); POSITIVE MORPHOLOGY YES; Platelet Count 146 K/mm3 (150-450); RBC Distribution Width SD 60.6 fl (35.1-43.9); Red Blood Count 4.02 M/mm3 (4.6-6.2); White Blood Count 6.5 K/mm3 (4.4-11.0)
[2022-08-05 06:42] LABS: Differential Indicated SCAN CRITERIA MET
[2022-08-05 06:44] LABS: International Normalized Ratio 2.4; Prothrombin Time (Protime)PT. 25.4 SECONDS (11.7-14.9)
[2022-08-05 07:01] LABS: Anion Gap 5 (5-15); Anisocytosis 1+; BUN 35 mg/dL (7-18); BUN/Creat Ratio 26.9 RATIO (10-20); Calcium,Total 7.7 mg/dL (8.5-10.1); Chloride 106 mmol/L (98-107); Differential Comment SCANNED; EST Glomerular Filtration Rate 58 mL/min (>60); Est Glom Filt Rate - Afr Amer 70 mL/min (>60); Estimated Creatinine Clearance 57.12 ml/min; Glucose 186 mg/dL (74-106); Macrocytosis 1+; Microcytosis RARE; Ovalocyte RARE; Potassium 4.5 mmol/L (3.5-5.1); Schistocytes RARE; Sodium Level 136 mmol/L (136-145)
[2022-08-05] MEDS: Gabapentin 100 MG Capsule PO (08:42)
--- NOTE | 2022-08-05 10:24 | CASEMGMT ---
Addendum entered by Fatmata Sesay 08/05/22 12:22: Social Work Per physician, pt is ready for discharge today. 7000 convalescent form completed in [facility] and faxed along with discharge orders to [facility]. Transportation arranged with [facility] ([phone]) for wheelchair transport with confirmation #[id number]. SW 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 SW met with pt and informed of discharge plan, pt is agreeable. Disposition: [facility], skilled level of care under convalescent stay. MELISSA Jones Original Note: Social Work Phone call placed to [facility] and spoke with cafe lead who confirms precert has been obtained. Physician updated that pt can discharge when medically ready. Plan: [facility], when medically ready MELISSA Pineda
--- NOTE | 2022-08-05 10:57 | PCM.TXEXTCAR ---
Diet Diet Order/Speech Therapy: 07/31/22 21:58 Diet: Consistent Carb - Calorie Controlled Food consistency:: Regular Liquid Consistency:: Regular/Thin Is pt able to select menu?: No How many daily calories?: 1800 calorie Routine Orders/Code Status Routine Lab Work: CBC and BMP Code Status: Full Code Wound(s) right foot: Wound Type: Stasis Ulcer Therapies Physical Therapy: Eval and Treat Occupational Therapy: Eval and Treat Problem/Diagnosis (1) Urinary tract infection: Status: Acute Code(s): N39.0 - Urinary tract infection, site not specified (2) Generalized weakness: Status: Acute Code(s): R53.1 - Weakness (3) Inability to walk: Status: Acute Code(s): R26.2 - Difficulty in walking, not elsewhere classified (4) Hypokalemia: Status: Acute Code(s): E87.6 - Hypokalemia (5) Hyperglycemia: Status: Acute Code(s): R73.9 - Hyperglycemia, unspecified Plan 1.? Acute cystitis/physical debility and deconditioning/pleural effusion with an ZOFIA ? Patient started on Rocephin urine culture sent, culture is mixed ned ? We will do 1 more dose of Rocephin and then discontinue ? PT/OT for evaluation and possible placement, he has had multiple placements previously where he is left AMA and he is homeless living in his car ? Chest x-ray demonstrated a pleural effusion on admission, he has become more diminished today on the right side so we will proceed with a thoracentesis to be both therapeutic and diagnostic ? Is possible that his ZOFIA is prerenal he did receive Lasix the night before because of his shortness of breath. We will continue with IV fluids, his renal function is improved, he was also given Kayexalate overnight and his potassium is improved to 4.6 2.? Aortic valve disease/acute on chronic systolic CHF/CAD status post CABG/PAD status post femoropopliteal bypass/HLD/HTN ?Status post aortic valve replacement [employer] mechanical valve.? Patient INR is subtherapeutic apparently due to noncompliance.? Bridged with Lovenox with daily monitoring of INR ordered, will temporarily hold Lovenox and Coumadin for thoracentesis ?Echo obtained on 09/22/2021 demonstrated EF of 30% with moderate global hypokinesis.? Patient is on lisinopril as well as furosemide which have been held secondary to his ZOFIA ?Blood pressures are stable, continue with his home blood pressure medications 3.? DM2 ?He was hypoglycemic overnight, will discontinue his long-acting insulin ? Sliding scale insulin with Accu-Cheks at bedtime ? We will make adjustments as necessary 4.? Anemia -Hemoglobin is chronically low ? His ferritin and iron are both low, will give him a dose of IV iron today DVT: Coumadin, will hold for thoracentesis Allergies/Procedures Done in Hospital Allergies No Known Allergies Allergy (Verified 07/31/22 16:08) Procedures: Thoracentesis Type of Care/Length of Stay Estimated LOS: Convalescent Care Less Than 30 days Type of Care Needed: Skilled Rehab Potential: Fair Prognosis: Fair Additional Orders/Day of Discharge Day of Discharge: 08/05/22 Dietary and Speech Recommendations Dietitian Recommendations/Changes: continue 1800 calorie/consistent CHO diet as ordered; will add no added salt given hx of CHF; will continue Glucerna 120mL 4x/day for additional calories/protein if consumed given 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 Discharge Plan Admission Admit Date/Time: 08/01/22 11:34 Attending Provider: Fernandez Rosario Primary Care Provider: Saurabh Hernandez Chi Consulting Providers: Cami Nance ; Jose Gutierrez Instructions Patient Instructions: SAM RN Thoracentesis Dc Discharge Orders/Prescriptions Prescriptions: Continued metformin 500 mg tablet 500 mg PO BIDCM metoprolol succinate 25 mg tablet extended release 24 hr 75 mg PO DAILY Tradjenta 5 mg tablet 5 mg PO DAILY lisinopril 5 mg tablet 5 mg PO DAILY gabapentin 100 mg capsule 100 mg PO BID Label Comments: TAKE 2 CAPSULES BY MOUTH EVERY 12 HOURS doxepin 50 mg capsule 50 mg PO DAILY atorvastatin 40 mg Tablet 40 mg PO QHS potassium chloride 20 mEq Tablet,Er Particles/Crystals 20 meq PO DAILY insulin aspart U-100 [Novolog FlexPen U-100 Insulin] 100 unit/mL (3 mL) insulin pen 10 unit SUBCUT BIDCM Qty: 3 0RF Rx Instructions: Hold if glucose less than 130 mg/dl insulin glargine [Lantus Solostar U-100 Insulin] 100 unit/mL (3 mL) insulin pen 25 unit SUBCUT DAILY Qty: 3 0RF Rx Instructions: Hold if glucose less than 130 mg/dl warfarin [Jantoven] 6 mg tablet 6 mg PO DAILY Rx Instructions: Hold if INR more than 3.5 furosemide 20 mg tablet 20 mg PO DAILY Referrals / Follow Up: Saurabh Hernandez Chi, MD [Primary Care Provider] - Disposition Disposition (needs filled in before D/C Order can be placed): [facility]
[2022-08-05] MEDS: Glucerna Shake 120 ML LIQUID PO ×2 (11:27→15:41)
[2022-08-05] MEDS: Metoprolol(XL)Succ 25 MG Tablet 75 MG PO (11:28)
[2022-08-05 11:51] LABS: Bedside Glucose 281 mg/dL (74-106)
--- NOTE | 2022-08-05 13:33 | DS.PCM_ITS ---
Providers Date of Admission: 08/01/22 Primary Care Physician: Dr. Saurabh Hernandez MD Consultations 07/31/22 21:58 Consult: Onc/Wound/pattern chart writer Routine Comment: Reason For Visit: DEBILITY WITH FAILURE TO THRIVE Diagnosis Discharge Diagnosis (1) Urinary tract infection: Status: Acute Code(s): N39.0 - Urinary tract infection, site not specified (2) Generalized weakness: Status: Acute Code(s): R53.1 - Weakness (3) Inability to walk: Status: Acute Code(s): R26.2 - Difficulty in walking, not elsewhere classified (4) Hypokalemia: Status: Acute Code(s): E87.6 - Hypokalemia (5) Hyperglycemia: Status: Acute Code(s): R73.9 - Hyperglycemia, unspecified Plan 1.? Acute cystitis/physical debility and deconditioning/pleural effusion with an ZOFIA ? Patient started on Rocephin urine culture sent, culture is mixed ned ? We will do 1 more dose of Rocephin and then discontinue ? PT/OT for evaluation and possible placement, he has had multiple placements previously where he is left AMA and he is homeless living in his car ? Chest x-ray demonstrated a pleural effusion on admission, he has become more diminished today on the right side so we will proceed with a thoracentesis to be both therapeutic and diagnostic ? Is possible that his ZOFIA is prerenal he did receive Lasix the night before because of his shortness of breath. We will continue with IV fluids, his renal function is improved, he was also given Kayexalate overnight and his potassium is improved to 4.6 2.? Aortic valve disease/acute on chronic systolic CHF/CAD status post CABG/PAD status post femoropopliteal bypass/HLD/HTN ?Status post aortic valve replacement [employer] mechanical valve.? Patient INR is subtherapeutic apparently due to noncompliance.? Bridged with Lovenox with daily monitoring of INR ordered, will temporarily hold Lovenox and Coumadin for thoracentesis ?Echo obtained on 09/22/2021 demonstrated EF of 30% with moderate global hypokinesis.? Patient is on lisinopril as well as furosemide which have been held secondary to his ZOFIA ?Blood pressures are stable, continue with his home blood pressure medications 3.? DM2 ?He was hypoglycemic overnight, will discontinue his long-acting insulin ? Sliding scale insulin with Accu-Cheks at bedtime ? We will make adjustments as necessary 4.? Anemia -Hemoglobin is chronically low ? His ferritin and iron are both low, will give him a dose of IV iron today DVT: Coumadin, will hold for thoracentesis Medications at Discharge Home Medications metformin 500 mg tablet 500 mg PO BIDCM diabetes 05/31/20 atorvastatin 40 mg tablet 40 mg PO QHS cholesterol 11/12/20 potassium chloride 20 mEq tablet,extended release(part/cryst) 20 meq PO DAILY suipplement 12/23/20 linagliptin 5 mg tablet (Tradjenta) 5 mg PO DAILY DM 10/08/21 lisinopril 5 mg tablet 5 mg PO DAILY HTN 10/08/21 metoprolol succinate 25 mg tablet,extended release 24 hr 75 mg PO DAILY HTN 10/08/21 doxepin 50 mg capsule 50 mg PO DAILY Check with primary doctor 02/11/22 gabapentin 100 mg capsule 100 mg PO BID pain 02/11/22 insulin aspart U-100 100 unit/mL (3 mL) subcutaneous pen (Novolog FlexPen U-100 Insulin aspart) 10 unit (0.1 mL) subcut BIDCM diabetes #3 mL 02/12/22 insulin glargine 100 unit/mL (3 mL) subcutaneous pen (Lantus Solostar U-100 Insulin) 25 unit (0.25 mL) subcut DAILY DM #3 mL 02/12/22 furosemide 20 mg tablet 20 mg PO DAILY diuretic 07/31/22 warfarin 6 mg tablet (Jantoven) 6 mg PO DAILY Check with primary doctor 07/31/22 ferrous sulfate 325 mg (65 mg iron) tablet 325 mg PO BID #1 TAB 08/05/22 Hospital Course Operations None Procedures Thoracentesis Summary of Care Provided Minutes Spent on Discharge: 40 Hospital Course: Per HPI: RAPHAEL HADDAD, is a 71 M with a PMH as outlined who presents via the ED on 07/31/2022 with a complaint of weakness and failure to thrive.? Patient recently in the hospital and was discharged to long-term facility.? He was there for about 3 weeks and left AGAINST MEDICAL ADVICE because he said he needed to help out a friend.? Patient has been living in his car since then and has been unable to take care of himself.? He been progressively getting weak and has not been compliant with any of his medications.? He complained of generalized heidi and said he had not been eating or drinking well.? He said his urine was very dark and he had only had a bowel movement twice in the past month.? He denied any fever, chills, nausea or vomiting, chest pain, abdominal pain or any other symptoms.? Review of systems otherwise negative. Vitals in the ED were blood pressure 133/83, pulse rate of 102 respiratory rate of 20.? He was saturating at 98% on room air.? CBC showed hemoglobin of 10.4 with WBC of 5.2 and platelets of 198.? INR was 1.4 and chemistry was significant for potassium of 3.? Total bilirubin was 2.3 and ALP was elevated at 143 with AST and ALT not being elevated.? Initial troponin was negative.? Urinalysis showed positive nitrites and leukocyte esterase as well as 10-25 WBC per high- power field but no bacteria.? He has been admitted to evaluate for debility due to failure to thrive and probable UTI. Hospital Course: 1.? Acute cystitis/physical debility and deconditioning/pleural effusion with an ZOFIA ? Patient started on Rocephin urine culture sent, culture is mixed ned ?Completed antibiotics ? PT/OT for evaluation and possible placement, he has had multiple placements previously where he is left AMA and he is homeless living in his car ?He had over 1700 cc drained from his thoracentesis, it was transudative consistent with his heart failure ?ZOFIA has resolved ? Discussed with him the plan for discharge today he expressed understanding of the risk benefits of going to the [facility] and would like to go today. We will resume all of his home medications including his Lasix and lisinopril tomorrow, I would recommend following his renal function. He also has a midline in place and may benefit from some D5 normal saline if he becomes hypoglycemic as he has not been eating very well and his blood sugars were dropping 2.? Aortic valve disease/acute on chronic systolic CHF/CAD status post CABG/PAD status post femoropopliteal bypass/HLD/HTN ?Status post aortic valve replacement [employer] mechanical valve.? Patient INR is subtherapeutic apparently due to noncompliance. ?Echo obtained on 09/22/2021 demonstrated EF of 30% with moderate global hypokinesis.? Patient is on lisinopril as well as furosemide which have been held secondary to his ZOFIA ?Blood pressures are stable, continue with his home blood pressure medications ?INR is 2.4 today, can resume his Coumadin 3.? DM2 ?He was hyperglycemic and his long-acting was held and he was started on D5 normal saline this can be continued at the [facility] if necessary ? Sliding scale insulin with Accu-Cheks at bedtime ? We will make adjustments as necessary 4.? Iron deficiency anemia -Hemoglobin is chronically low ? His ferritin and iron are both low, will give him a dose of IV iron today ? Would recommend starting him on an oral iron Physical Exam Narrative General: Alert, Cooperative, No apparent distress HEENT: Atraumatic, PERRLA, EOMI, Normocephalic Oral: Moist Mucosa Neck: Supple, No JVD Lungs: Diminished right more than left, Normal air movement, No rhonchi, No wheeze, No rales Cardiovascular: Regular rate, Regular Rhythm, Normal S1, Normal S2, No murmurs Abdomen: Soft, Non Tender, Non-Distended, No Hepato-splenomegaly Extremities: No edema, Capillary Refill Less than 3 Seconds Skin: No rashes, No breakdown Musculoskeletal: No Tenderness to Palpation of Joints or Extremities Neurological: Cranial nerves II-XII grossly intact, Motor Exam 5/5 strength throughout, Sensory exam intact to light touch and pain Psych/Mental Status: Flat affect, Appropriate Weight / BMI Weight Weight: 197 lb 12.074 oz Body Mass Index (BMI) 27.6 ABG / Lab / Microbiology Data Result Diagrams: 08/05/22 06:00 08/05/22 06:00 Laboratory: Laboratory Results - last 24 hr 08/04/22 06:30: Lactate Dehydrogenase 363 H 08/04/22 14:20: Fluid Glucose 150 H, Fluid Total Protein 1.9, Fluid LDH 78 08/04/22 14:21: Fluid Source THORACENTESIS, Fluid Color YELLOW, Fluid Appearance CLEAR, Fluid WBC 0.159, Fluid RBC 46, Fluid Tot Cell Count 0.170, Fld Polynuclear WBCs # 0.042, Fld Polynuclear WBCs % 26.4, Fluid Mononuclear WBCs 0.117, Fld Mononuclear WBCs % 73.6, Fluid Neutrophils 46, Fluid Lymphocytes 36, Fluid Monocytes 10, Fluid Macrophages 8, Fl Pathologist Comment May follow, Fluid Comment 2 SEE COMMENT 08/04/22 16:02: POC Glucose 155 H 08/04/22 21:34: POC Glucose 192 H 08/05/22 06:00: WBC 6.5, RBC 4.02 L, Hgb 9.1 L, Hct 31.3 L, MCV 77.9 L, MCH 22.6 L, MCHC 29.1 L, RDW Std Deviation 60.6 H, RDW Coeff of Estrada 22.0 H, Plt Count 146 L, Immature Gran % (Auto) 0.600, Neut % (Auto) 69.0, Lymph % (Auto) 16.7 L, [place] % (Auto) 11.7 H, Eos % (Auto) 1.5, Baso % (Auto) 0.5, Absolute Neuts (auto) 4.5, Absolute Lymphs (auto) 1.09, Nucleated RBC % 0, Differential Comment SCANNED, Anisocytosis 1+, Microcytosis RARE, Macrocytosis 1+, Ovalocytes RARE, Schistocytes RARE 08/05/22 06:00: PT 25.4 H, INR 2.4 08/05/22 06:00: Sodium 136, Potassium 4.5, Chloride 106, Carbon Dioxide 25.0, Anion Gap 5, BUN 35 H, Creatinine 1.30, Estim Creat Clear Calc 57.12, Est GFR (MDRD) Af Amer 70, Est GFR (MDRD) Non-Af 58 L, BUN/Creatinine Ratio 26.9 H, Glucose 186 H, Calcium 7.7 L 08/05/22 06:08: POC Glucose 207 H 08/05/22 11:26: POC Glucose 281 H Microbiology: Microbiology 08/05/22 12:00 Nasal Secretion SARS-CoV-2 Antigen (Rapid) - Final 07/31/22 17:50 Urine, Clean Catch Urine Culture - Final Mixed Gram Positive Organisms 07/31/22 17:30 Nasal Secretion SARS-CoV-2 & FLU Antigen (Rapid) - Final Radiography Diagnostic Testing: Radiology Impression Thoracentesis Ultrasound 08/04/22 07:15 IMPRESSION: Ultrasound-guided right thoracentesis. Electronically Signed: Lázaro Archer MD at 14:30 EST , Chest X-Ray 08/04/22 14:00 IMPRESSION: Status post right thoracentesis. No evidence of pneumothorax. Electronically Signed: Lázrao Archer MD at 14:14 EST Reading Location ID and State: [address] [place] [address] , Service support , Meaningful Use Info Meaningful Use Diagnoses (Choose all that apply): None applicable Discharge Plan Admission Admit Date/Time: 08/01/22 11:34 Attending Provider: Fernandez Rosario Primary Care Provider: Saurabh Hernandez Chi Consulting Providers: Cami Nance ; Jose Gutierrez Instructions Patient Instructions: SAM RN Thoracentesis Dc Discharge Orders/Prescriptions Prescriptions: New ferrous sulfate 325 mg (65 mg iron) tablet 325 mg PO BID Qty: 1 0RF Continued metformin 500 mg tablet 500 mg PO BIDCM metoprolol succinate 25 mg tablet extended release 24 hr 75 mg PO DAILY Tradjenta 5 mg tablet 5 mg PO DAILY lisinopril 5 mg tablet 5 mg PO DAILY gabapentin 100 mg capsule 100 mg PO BID Label Comments: TAKE 2 CAPSULES BY MOUTH EVERY 12 HOURS doxepin 50 mg capsule 50 mg PO DAILY atorvastatin 40 mg Tablet 40 mg PO QHS potassium chloride 20 mEq Tablet,Er Particles/Crystals 20 meq PO DAILY insulin aspart U-100 [Novolog FlexPen U-100 Insulin] 100 unit/mL (3 mL) insulin pen 10 unit SUBCUT BIDCM Qty: 3 0RF Rx Instructions: Hold if glucose less than 130 mg/dl insulin glargine [Lantus Solostar U-100 Insulin] 100 unit/mL (3 mL) insulin pen 25 unit SUBCUT DAILY Qty: 3 0RF Rx Instructions: Hold if glucose less than 130 mg/dl warfarin [Jantoven] 6 mg tablet 6 mg PO DAILY Rx Instructions: Hold if INR more than 3.5 furosemide 20 mg tablet 20 mg PO DAILY Referrals / Follow Up: Saurabh Hernandez Chi, MD [Primary Care Provider] - Disposition Disposition (needs filled in before D/C Order can be placed): [facility] Facility Charges/Coding Visit Charges Inpatient E&M: 23560 Disch Hosp >30min
--- NOTE | 2022-08-05 15:58 | CASEMGMT ---
Social Work [facility] had not called with transportation time. KALANI called [facility] to clarify. 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 KALANI informed Petty no one is here. Petty reached out to [facility] who states they are pulling up to facility now for transport. Nursing updated. Phone call Sara at [facility] and informed of transport time. MELISSA Jones
[2022-08-06 10:04] LABS: Pathologist Comment/Body Fluid Reviewed
== END 2022-08-05 14:10 | disposition skilled nursing facility (03) | DRG 690 ==
LOC: ED 20:38 → MS3 20:53
PROVIDERS: Hospitalist; Internal Medicine; Admitting Provider Student in an Organized Health Care Education/Training Program; Emergency Provider Emergency Medicine; PCP Family Medicine Geriatric Medicine; Visit Provider Family Medicine
DX: N30.00 Acute cystitis without hematuria (principal); N17.9 Acute kidney failure, unspecified; I50.22 Chronic systolic (congestive) heart failure; E11.649 Type 2 diabetes mellitus with hypoglycemia without coma; L97.511 Non-pressure chronic ulcer of other part of right foot limited to breakdown of skin; E11.42 Type 2 diabetes mellitus with diabetic polyneuropathy; D50.9 Iron deficiency anemia, unspecified; E11.51 Type 2 diabetes mellitus with diabetic peripheral angiopathy without gangrene; E11.65 Type 2 diabetes mellitus with hyperglycemia; I11.0 Hypertensive heart disease with heart failure; J44.9 Chronic obstructive pulmonary disease, unspecified; Z79.4 Long term (current) use of insulin; Z89.411 Acquired absence of right great toe; E11.621 Type 2 diabetes mellitus with foot ulcer; I25.5 Ischemic cardiomyopathy; E87.6 Hypokalemia; I25.10 Atherosclerotic heart disease of native coronary artery without angina pectoris; E78.5 Hyperlipidemia, unspecified; R26.2 Difficulty in walking, not elsewhere classified; F17.210 Nicotine dependence, cigarettes, uncomplicated; I25.2 Old myocardial infarction; R62.7 Adult failure to thrive; R53.81 Other malaise; R53.1 Weakness; Z68.27 Body mass index [BMI] 27.0-27.9, adult; Z59.02 Unsheltered homelessness; Z91.14 Patient's other noncompliance with medication regimen; Z95.1 Presence of aortocoronary bypass graft; Z95.2 Presence of prosthetic heart valve; Z95.820 Peripheral vascular angioplasty status with implants and grafts; Z79.01 Long term (current) use of 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s; Z79.82 Long term (current) use of aspirin; Z79.84 Long term (current) use of oral hypoglycemic drugs; Z79.899 Other long term (current) drug therapy; Z23 Encounter for immunization
CPT/HCPCS: 32555; 36415; 71045; 71046; 73630; 80048; 80053; 81001; 82607; 82728; 82945; 82962; 83540; 83550; 83605; 83615; 83690; 83735; 84100; 84157; 84484; 85025; 85045; 85610; 85730; 87086; 87088; 87426; 87428; 88108; 88305; 88313; 88341; 88342; 89050; 93005; 94640; 97110; 97116; 97162; 97166; 97530; 97535; 97802; 99285; J7030; J7050; A4216; J1940; J2405; J2916

== ENCOUNTER → 2022-09-09 | Outpatient (CLI) | payer MEDICARE, MEDICAID, SELFPAY ==
--- NOTE | 2022-09-09 12:25 | VDLE_ITS ---
Reason For Study: Pain RIGHT LEFT GSV is normal. CFV is compressible, spontaneous, phasic, CFV is compressible, spontaneous, phasic, competent, and demonstrates normal competent and demonstrates normal augmentation. augmentation. FV is compressible, spontaneous, phasic, competent and demonstrates normal augmentation. POP V is compressible, spontaneous, phasic, competent and demonstrates normal augmentation. T/P Trunk is compressible. PTV is compressible. RT PerV is compressible. Procedure This is a venous duplex using B-mode, color flow and spectral Doppler. Exam performed in department. The study was technically difficult. A preliminary report was called and/or faxed to [facility]. VL/Venous Duplex US, Unilateral Interpretation Summary Deep veins of the right lower extremity are patent and compressible segmentally . There is no evidence of right lower extremity deep vein thrombosis. The right great sapheno us vein appears patent and compressible segmentally. Ordering Physician: Noemí Awad Referring Physician: Saurabh Hernandez Chi Performed By: Maricel Delcid RVT
== END | disposition home or self-care (01) ==
LOC: CVS 12:25
PROVIDERS: PCP Family Medicine Geriatric Medicine; Visit Provider Physician Assistant
DX: M79.89 Other specified soft tissue disorders (principal)
CPT/HCPCS: 93971

== ENCOUNTER → 2022-09-29 | Outpatient (CLI) | payer MEDICARE, MEDICAID, SELFPAY ==
--- NOTE | 2022-09-29 14:00 | CT_ITS ---
STUDY: LOW DOSE CT LUNG CANCER SCREENING REASON FOR EXAM: Male, 71 years old. One pack per day smoker x30 years RADIATION DOSAGE (If Supplied By Facility): CTDIvol = ( 3.18 ) mGy, DLP = ( 101.65 ) mGycm TECHNIQUE: No contrast was administered. Low dose technique was utilized (average mAS-38 and kVp 120). 1.25 mm axial source images with a slice interval of 1.25-mm were reconstructed in lung windows. 2.5 mm axial source images with a slice interval of 2.5-mm were reconstructed in lung windows. 5.0 mm axial source images with a slice interval of 5.0-mm were reconstructed in soft tissue windows. COMPARISON: Previous plain films, previous CT from 09/21/2020 NODULES: FINDINGS: The lung windows show lungs to be normally expanded. There is a large right pleural effusion with associated atelectasis. There is no suspicious noncalcified mass or nodule, or organized infiltrate. Soft tissue windows show normal-appearing thyroid gland. There are scattered subcentimeter in short axis dimension axillary lymph nodes. Peripheral calcifications noted in the thoracic aorta without aneurysm. There is a midline ventral hernia containing fat and bowel loops, there is diffuse induration of the subcutaneous fat suggesting anasarca. There are calcified coronary vessels. Limited cuts to the upper abdomen show diffuse ascites, bony structures show degenerative change CT/Low Dose CT Lung Screening IMPRESSION: Lung-RADS category 3 - Continue screening with LDCT in 6 months. IMPORTANT NOTES FOR USE: ACR Lung-RADS Version 1.1 Assessment Categories Release Date: 2018 Category: Coded 0-4 bases on nodule(s) with highest degree of suspicion. Negative screen is defined as categories 1 and 2; a positive screen is defined as categories 3 and 4. Category 3 and 4A nodules that are unchanged on interval CT should be coded as category 2, and individuals returned to screening in 12 months. Category 4X: Category 3 or 4 nodules with additional imaging findings that increase the suspicion of lung cancer, such as spiculation, GGN that doubles in size in 1 year, enlarged lymph notes, etc. Category Modifiers: S (significant finding unrelated to lung cancer) Electronically Signed: Darryn Kaye MD at 15:05 EDT ,
== END | disposition home or self-care (01) ==
LOC: CT 13:59
PROVIDERS: PCP Family Medicine Geriatric Medicine; Visit Provider Internal Medicine Critical Care Medicine
DX: F17.210 Nicotine dependence, cigarettes, uncomplicated (principal)
CPT/HCPCS: 71271

== ENCOUNTER → 2022-09-30 | Outpatient (CLI) | payer MEDICARE, MEDICAID, SELFPAY ==
--- NOTE | 2022-09-30 12:47 | ART_ITS ---
Reason For Study: LE Ulcers Procedure A bilateral lower extremity continuous wave Doppler with analog waveform analysis,segmental pressures,and ankle brachial indexes without exercise. Left Segmental Pressures Left brachial= 123mmHg. Left thigh = 130mmHg. Left calf = 120mmHg. Left posterior tibial artery = 107mmHg. Left dorsalis pedis artery = 119mmHg. Left digit = 48 mmHg. The left posterior tibial artery waveforms are monophasic. The left dorsalis pedis waveforms are monophasic. Right Segmental Pressures Right brachial= 130mmHg. Right thigh = 207mmHg. Right calf = 115mmHg. Right posterior tibial artery = 85mmHg. Right dorsalis pedis artery = 78mmHg. Prior Great Toe Amputation. The right posterior tibial artery waveforms are biphasic. The right dorsalis pedis waveforms are biphasic. Indices The right ankle brachial index by the posterior tibial artery is 0.65. The right ankle brachial index by the dorsalis pedis is 0.60. The left ankle brachial index by the posterior tibial artery is 0.82. The left ankle brachial index by the dorsalis pedis is 0.92. The left digital-brachial index is 0.37. VL/Lower Ext Art Exam w/o Exercis Interpretation Summary Right HERNESTO 0.65, moderate arterial insufficiency. Doppler/PVR waveforms and segm ental pressures reveal distal SFA/popliteal, infrapopltieal disease. Left HERNESTO 0.92, mild arterial insufficiency. Doppler/PVR waveforms and segmental pressures reveal distal SFA/popliteal disease. Ordering Physician: Noemí Awad Referring Physician: Saurabh Hernandez Chi Performed By: Santiago Brar, RVT
== END | disposition home or self-care (01) ==
LOC: CVS 12:47
PROVIDERS: PCP Family Medicine Geriatric Medicine; Referring Provider Physician Assistant; Visit Provider Physician Assistant
DX: I73.9 Peripheral vascular disease, unspecified (principal)
CPT/HCPCS: 93923

== ENCOUNTER 2022-10-19 13:50 | Emergency (ER) | payer MEDICARE, MEDICAID, SELFPAY ==
[2022-10-19 13:51] VITALS: BP 141/68; PULSE 77; RESP 18; TEMP 36.1; O2SAT 100
[2022-10-19 13:52] VITALS: BP 134/78; PULSE 82; RESP 16; TEMP 36.6; O2SAT 100; BMI 38.2
--- NOTE | 2022-10-19 14:18 | EDS_ITS ---
HPI History of Present Illness Chief Complaint: Wound Narrative Narrative: 71-year-old male with pain in the second toe of the right foot. Patient states this is a long-term problem. Patient states he seen a surgeon before for foot problems. He does not know the name of the surgeon. He states he was sent in today because he needed his foot evaluated. He states I do not know anyone or anything about it. He states he was what he called the hospital and set everything up for him. Denies fever or chills. Denies systemic signs or symptoms. He does note that his right foot is erythematous and swollen. Denies any trauma. Patient does admit to previous surgery and removal of his right great toe. 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 Lumbar spinal stenosis MSSA (methicillin susceptible Staphylococcus aureus) infection Nicotine dependence Non-healing surgical wound (05/01/20) Nonrheumatic aortic (valve) stenosis 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 Obstructive sleep apnea Osteomyelitis Peripheral vascular occlusive disease Pleural effusion, right Scabies infestation Secondary pulmonary arterial hypertension Smoker Sternal wound infection Type 2 diabetes mellitus 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 foot with fat layer exposed Ulcer of right foot with necrosis of bone Home Medications metformin 500 mg tablet 500 mg PO BIDCM diabetes 05/31/20 [History Last Taken 09/21/21] atorvastatin 40 mg tablet 40 mg PO QHS cholesterol 11/12/20 [History Last Taken 09/20/21] potassium chloride 20 mEq tablet,extended release(part/cryst) 20 meq PO DAILY suipplement 12/23/20 [History Last Taken 12/22/20] linagliptin 5 mg tablet (Tradjenta) 5 mg PO DAILY DM 10/08/21 [History Last Taken Unknown] lisinopril 5 mg tablet 5 mg PO DAILY HTN 10/08/21 [History Last Taken Unknown] metoprolol succinate 25 mg tablet,extended release 24 hr 75 mg PO DAILY HTN 10/08/21 [History Last Taken Unknown] doxepin 50 mg capsule 50 mg PO DAILY Check with primary doctor 02/11/22 [History Last Taken Unknown] insulin aspart U-100 100 unit/mL (3 mL) subcutaneous pen (Novolog FlexPen U-100 Insulin aspart) 10 unit (0.1 mL) subcut BIDCM diabetes #3 mL 02/12/22 [Rx Last Taken Unknown] insulin glargine 100 unit/mL (3 mL) subcutaneous pen (Lantus Solostar U-100 Insulin) 25 unit (0.25 mL) subcut DAILY DM #3 mL 02/12/22 [Rx Last Taken Unknown] ferrous sulfate 325 mg (65 mg iron) tablet 325 mg PO BID #1 TAB 08/05/22 [Rx Last Taken Unknown] ascorbic acid (vitamin C) 500 mg capsule 500 mg PO BID 10/14/22 [History Last Taken Unknown] furosemide 20 mg tablet 40 mg PO DAILY diuretic 10/14/22 [History Last Taken Unknown] gabapentin 100 mg capsule 200 mg PO BID pain 10/14/22 [History Last Taken Unknown] warfarin 6 mg tablet (Jantoven) 4 mg PO DAILY Check with primary doctor 10/14/22 [History Last Taken Unknown] amoxicillin 875 mg-potassium clavulanate 125 mg tablet 1 tab PO BID #20 tabs 10/19/22 [Rx Last Taken Unknown] Allergy/AdvReac Type Severity Reaction Status Date / Time No Known Allergies Allergy Verified 10/19/22 13:51 Family History Mother Diabetes Heart disease Father Diabetes Surgical History H/O coronary artery bypass surgery (05/01/20) History of angioplasty of peripheral vessel (01/02/10) History of femoropopliteal bypass (2008) History of incision and drainage (09/22/20) History of left heart catheterization (04/23/20) History of lumbar laminectomy History of mechanical aortic valve replacement Social History household members: significant other Smoking Status: Current every day smoker tobacco type: cigarettes alcohol intake: never substance use type: does not use caffeine: No ROS ROS ED Constitutional Constitutional ED: Denies chills, fever(s) or sweats Eyes Eyes: Denies blurry vision or change in vision ENT ENT ED: Denies ear pain or sore throat Cardiovascular Cardiovascular: Denies chest pain, palpitations or racing heartbeat Respiratory/Chest Respiratory/Chest: Denies cough, dyspnea or sputum Gastrointestinal Gastrointestinal: Denies abdominal pain, constipation, diarrhea, nausea or vomiting Genitourinary Genitourinary ED: Denies dysuria, hematuria or urinary frequency Musculoskeletal Musculoskeletal: Denies arthralgias, myalgias or neck pain Integumentary Reports other Details: Erythema and edema of the right second toe extending up into the right midfoot. ; Denies abscess or Abrasions Neurologic Neurologic: Denies headache(s), paresthesias or weakness Psychiatric Psychiatric: Denies anxiety, depression, suicidal ideation or suicidal thoughts Endocrine Endocrinology: Denies polydipsia or polyuria EXAM Physical Exam Const Vital Signs: 10/19/22 13:51 10/19/22 13:52 10/19/22 16:00 Temperature 96.9 F L 97.8 F Temperature Source Temporal Temporal Pulse Rate 77 82 78 Respiratory Rate 18 16 16 Blood Pressure 141/68 H 134/78 H 134/78 H Blood Pressure Mean 92 96 96 Pulse Ox 100 100 99 Oxygen Delivery Method Room Air Room Air Room Air Positive well nourished General Appearance ED: NAD HEENT Reports moist mucous membranes Resp normal respiratory effort Cardio regular rate and regular rhythm Neuro oriented x3 and CN's II-XII intact bilaterally Sensorium / Orientation: alert Motor Exam: strength 5/5 throughout Psych mental status grossly normal Skin Skin Narrative: Erythema and edema of the right second toe extending up into the midfoot. There is an ulceration on the right second toe. No drainage. MDM MDM MDM Narrative Medical decision making narrative: CBC was obtained to assess white blood cell count, hemoglobin, platelets, differential. Blood cell count normal at 4.8. Hemoglobin stable at 10.3. Renal function electrolytes within normal limits. Glucose 190 without anion gap. CRP elevated at 13, ESR elevated at 50. X-ray of the right foot shows no acute fracture or subluxation on my interpretation. There is no evidence of osteomyelitis. Radiology interprets this as degenerative changes. Discussed with Dr. Holland. He recommended putting him on Augmentin and he can see him later in the office this week. Patient amenable francisco this plan. Impression: 1. Right second toe cellulitis Lab Data Labs: Laboratory Results - last 24 hr 10/19/22 10/19/22 14:38 14:38 WBC 4.8 RBC 3.99 L Hgb 10.3 L Hct 34.2 L MCV 85.7 MCH 25.8 L MCHC 30.1 L RDW Std Deviation 67.9 H RDW Coeff of Estrada 21.8 H Plt Count 168 MPV 9.4 Immature Gran % (Auto) 0.400 Neut % (Auto) 63.8 Lymph % (Auto) 16.8 L [place] % (Auto) 15.1 H Eos % (Auto) 2.9 Baso % (Auto) 1.0 Absolute Neuts (auto) 3.0 Absolute Lymphs (auto) 0.80 L Nucleated RBC % 0 Platelet Estimate ADEQUATE RBC Morphology N CHROM Anisocytosis 1+ Macrocytosis RARE ESR 50 H Sodium 136 Potassium 4.4 Chloride 104 Carbon Dioxide 31.0 Anion Gap 1 L BUN 21 H Creatinine 0.70 Estim Creat Clear Calc 74.25 Est GFR (MDRD) Af Amer 143 Est GFR (MDRD) Non-Af 118 BUN/Creatinine Ratio 29.9 H Glucose 190 H Calcium 8.8 C-React Prot Ext Range 13.00 H Radiography Diagnostic Testing: Clinical Impression(s) from Imaging Studies Foot X-Ray 10/19/22 15:00 IMPRESSION: 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 No evidence of acute fracture. Electronically Signed: Aiden River DO at 16:20 EDT , Discharge Plan Triage Chief Complaint: Wound ED Provider: Robert Bullock Dx/Rx/DC Orders Instructions: ED Cellulitis Prescriptions: New amoxicillin-pot clavulanate 875-125 mg tablet 1 tab PO BID Qty: 20 0RF No Action metformin 500 mg tablet 500 mg PO BIDCM metoprolol succinate 25 mg tablet extended release 24 hr 75 mg PO DAILY Tradjenta 5 mg tablet 5 mg PO DAILY lisinopril 5 mg tablet 5 mg PO DAILY doxepin 50 mg capsule 50 mg PO DAILY atorvastatin 40 mg Tablet 40 mg PO QHS potassium chloride 20 mEq Tablet,Er Particles/Crystals 20 meq PO DAILY insulin aspart U-100 [Novolog FlexPen U-100 Insulin] 100 unit/mL (3 mL) insulin pen 10 unit SUBCUT BIDCM Qty: 3 0RF Rx Instructions: Hold if glucose less than 130 mg/dl insulin glargine [Lantus Solostar U-100 Insulin] 100 unit/mL (3 mL) insulin pen 25 unit SUBCUT DAILY Qty: 3 0RF Rx Instructions: Hold if glucose less than 130 mg/dl ferrous sulfate 325 mg (65 mg iron) tablet 325 mg PO BID Qty: 1 0RF Primary Care Provider: Saurabh Hernandez Chi Referrals: Pro Holland DPM [Med Staff - Active Staff] - 3-5 Days Saurabh Hernandez Chi, MD [Primary Care Provider] - Disposition Disposition: Home, Self Care
--- NOTE | 2022-10-19 15:00 | RAD_ITS ---
STUDY: X-RAY - RIGHT FOOT CLINICAL: Male, 71 years old. pain TECHNIQUE: 3 view(s) of the foot. COMPARISON: None. FINDINGS: There is demineralization of the rear and midfoot bones. Normal visualized subtalar, talonavicular, calcaneocuboid, tarsal and tarsometatarsal articulations. Amputation of the first mid metatarsal is present. Adequate surrounding soft tissues are noted. Severe degenerative change of the second metatarsal phalangeal joint with erosive osteoarthrosis. Normal interphalangeal joints and phalanges of the lesser toes. The soft tissue structures are unremarkable. 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 No evidence of acute fracture. Electronically Signed: Aiden River DO at 16:20 EDT ,
[2022-10-19 15:02] LABS: Basophil# 0.05 X10^3/uL; Eosinophil# 0.14 X10^3/uL; Eosinophils% 2.9 % (0-5); Hematocrit 34.2 % (40-54); Hemoglobin 10.3 g/dL (13.0-16.5); Lymphocyte % 16.8 % (19-41); Mean Corp Hgb Conc 30.1 g/dL (32-36); Mean Corpuscular Hgb 25.8 pg (27.0-32.0); Mean Corpuscular Volume 85.7 fL (80-94); Mean Platelet Vol. 9.4 fl (6.2-12.0); Monocyte# 0.72 X10^3/uL; Monocyte% 15.1 % (0-10); NRBC Flagged by Analyzer 0 % (0-5); Neutrophil # 3.04 X10^3/uL (2.7-7.7); Neutrophil % 63.8 % (47-70); POSITIVE MORPHOLOGY YES; Platelet Count 168 K/mm3 (150-450); RBC Distribution Width CV 21.8 % (11.6-14.6); RBC Distribution Width SD 67.9 fl (35.1-43.9); Red Blood Count 3.99 M/mm3 (4.6-6.2); White Blood Count 4.8 K/mm3 (4.4-11.0)
[2022-10-19 15:08] LABS: Anion Gap 1 (5-15); BUN 21 mg/dL (7-18); BUN/Creat Ratio 29.9 RATIO (10-20); Calcium,Total 8.8 mg/dL (8.5-10.1); Chloride 104 mmol/L (98-107); EST Glomerular Filtration Rate 118 mL/min (>60); Est Glom Filt Rate - Afr Amer 143 mL/min (>60); Estimated Creatinine Clearance 74.25 ml/min; Glucose 190 mg/dL (74-106); Potassium 4.4 mmol/L (3.5-5.1); Sodium Level 136 mmol/L (136-145)
[2022-10-19 15:31] LABS: Differential Indicated SCAN CRITERIA MET; Erythrocyte Sedimentation Rate 50 mm/hr (0-20)
[2022-10-19 15:42] LABS: Platelet Estimate ADEQUATE (ADEQ); Red Cell Morphology N CHROM NORMAL (NORM C&C)
[2022-10-19 15:43] LABS: Anisocytosis 1+; Macrocytosis RARE
[2022-10-19 16:00] VITALS: BP 134/78; PULSE 78; RESP 16; O2SAT 99
[2022-10-19 17:29] VITALS: BP 134/78; PULSE 78; RESP 16; TEMP 37.2; O2SAT 99
--- NOTE | 2022-10-19 17:31 | NURSING ---
CALLED [facility]QU[facility], ETA IS 90 MIN
[2022-10-19] MEDS: Amox/Clavulanate 875 MG Tablet PO (17:32)
== END 2022-10-19 19:14 | disposition home or self-care (01) ==
PROVIDERS: Emergency Provider Student in an Organized Health Care Education/Training Program; PCP Family Medicine Geriatric Medicine; Visit Provider Student in an Organized Health Care Education/Training Program
DX: L03.031 Cellulitis of right toe (principal); I50.42 Chronic combined systolic (congestive) and diastolic (congestive) heart failure; I25.10 Atherosclerotic heart disease of native coronary artery without angina pectoris; I25.2 Old myocardial infarction; G47.33 Obstructive sleep apnea (adult) (pediatric); F17.210 Nicotine dependence, cigarettes, uncomplicated; Z86.718 Personal history of other venous thrombosis and embolism; Z95.1 Presence of aortocoronary bypass graft
CPT/HCPCS: 73630; 80048; 85025; 85652; 86140; 99284; A4216

== ENCOUNTER → 2022-10-25 | Outpatient (CLI) | payer MEDICARE, MEDICAID, SELFPAY | END | disposition home or self-care (01) | PROVIDERS: PCP Family Medicine Geriatric Medicine; Visit Provider Podiatrist | DX: L97.512 Non-pressure chronic ulcer of other part of right foot with fat layer exposed (principal) | CPT/HCPCS: 87070; 87077; 87186; 87205 ==

== ENCOUNTER → 2022-10-26 | Outpatient (CLI) | payer MEDICARE, MEDICAID, SELFPAY ==
--- NOTE | 2022-10-27 05:43 | PFTCOMP ---
COMPLETE PULMONARY FUNCTION TEST INTERPRETATION Brief HPI: Patient is a 71-year-old male, currently under the care of Dr. Sutton, who presents to [facility] for complete pulmonary function tests secondary to diagnosis of COPD. Respiratory therapist reports good effort and reproducible results. Interpretation: Forced expiration spirometry shows no large airways obstructive ventilatory defect with an FEV1 of 41% predicted. There is no significant bronchodilator response by strict ATS criteria. Spirograms are of good quality and plateau normally. The respiratory flow volume loop shows decreased expiratory flow rates at high lung volumes consistent with small airways obstruction. Lung volumes by body plethysmography show a moderately severe decreased total lung capacity at 3.87 L, 57% predicted. FRC and RV are elevated out of proportion, but do not reach clinical significance by ATS criteria. Diffusion capacity by carbon monoxide is decreased at 40% predicted. The airway resistance is elevated. No previous pulmonary function tests were available for review. Impression: Moderately severe restrictive ventilatory defect with a symmetric reduction diffusion capacity. There is some stigmata of possible concomitant small airways disease.
== END | disposition home or self-care (01) ==
LOC: PSN 11:55
PROVIDERS: PCP Family Medicine Geriatric Medicine; Referring Provider Internal Medicine Critical Care Medicine; Visit Provider Internal Medicine Critical Care Medicine
DX: J44.9 Chronic obstructive pulmonary disease, unspecified (principal); F17.210 Nicotine dependence, cigarettes, uncomplicated
CPT/HCPCS: 94060; 94726; 94729

== ENCOUNTER → 2022-10-27 | Outpatient (CLI) | payer MEDICARE, MEDICAID, SELFPAY ==
--- NOTE | 2022-10-27 07:32 | CT_ITS ---
EXAM: CT ANGIOGRAPHY ABDOMEN AND PELVIS WITH RUNOFF TO THE LOWER EXTREMITIES WITH INTRAVENOUS CONTRAST CLINICAL INDICATION: RLE wound TECHNIQUE: Helically acquired angiography images were obtained of the abdomen, pelvis and lower extremities with intravenous contrast using CTA runoff protocol. This CT exam was performed using one or more of the following dose reduction techniques: automated exposure control, adjustment of the mA and/or kV according to patient size, and/or use of iterative reconstruction technique. This report was created using [employer] report generation technology. MIP reconstructed images were created and reviewed. CONTRAST: IV 100mL [id number] COMPARISON: None. FINDINGS: VASCULATURE: AORTA: No acute findings. Normal caliber abdominal aorta. No occlusion or significant stenosis. No dissection. CELIAC TRUNK AND MESENTERIC ARTERIES: No acute findings. No occlusion or significant stenosis. No dissection. RENAL ARTERIES: No acute findings. No occlusion or significant stenosis. No dissection. RIGHT ILIAC ARTERIES: No acute findings. No occlusion or significant stenosis. No dissection. RIGHT FEMORAL/POPLITEAL ARTERIES: There is calcific plaque in the right superficial femoral artery but there is no occlusion. There is high-grade stenosis distally of greater than 70 % due to calcific plaque. The right popliteal artery is heavily calcified but patent. RIGHT CALF/FOOT ARTERIES: There is essentially 2 vessel runoff to the right foot that being the posterior tibial and peroneal arteries. The right anterior tibial artery is not well-visualized and heavily calcified. LEFT ILIAC ARTERIES: No acute findings. No occlusion or significant stenosis. No dissection. LEFT FEMORAL/POPLITEAL ARTERIES: There is an occlusion of the habematolel left superficial femoral artery. There is a graft along the medial thigh that connects with the posterior tibial artery. There is two-vessel runoff to the left ankle pain the posterior tibial and peroneal arteries. LEFT CALF/FOOT ARTERIES: No acute findings. No occlusion or significant stenosis. LOWER THORAX: Unremarkable. Lung bases are clear. No cardiomegaly. No significant pericardial effusion. ABDOMEN: LIVER: Unremarkable. Homogeneous. No focal mass. GALLBLADDER AND BILE DUCTS: Unremarkable. No calcified gallstones. No gallbladder distention or wall edema. No intra- or extrahepatic biliary ductal dilation. PANCREAS: Unremarkable. No focal cystic or solid mass. SPLEEN: Unremarkable. Normal size without focal cystic or solid mass. ADRENALS: Unremarkable. No nodules. KIDNEYS AND URETERS: Unremarkable. Normal renal size and position. No hydronephrosis. STOMACH AND BOWEL: Unremarkable. No stomach or bowel distention. No focal inflammatory change. PELVIS: APPENDIX: No evidence of acute appendicitis. BLADDER: Unremarkable. REPRODUCTIVE: Unremarkable as visualized. No mass. ABDOMEN, PELVIS and LOWER EXTREMITIES: INTRAPERITONEAL SPACE: Unremarkable. No ascites or other fluid collection. No free air. BONES/JOINTS: Unremarkable. No suspicious lytic or blastic abnormality. SOFT TISSUES: There are surgical clips in the left groin. No discrete abdominal or pelvic wall hernia. LYMPH NODES: Unremarkable. No enlarged lymph nodes. CT/CTA Abd w/Runoff W/WO Contrast IMPRESSION: 1. Heavy calcification of the right superficial femoral and popliteal arteries with areas of high-grade stenosis of greater than 70% due to calcific plaque. There is two-vessel runoff to the right ankle pain the posterior tibial and peroneal arteries. 2. Patent graft in the right leg extending from the common femoral down to the posterior tibial artery. Electronically Signed: Scottie Espinoza MD at 20:05 EDT ,
== END | disposition home or self-care (01) ==
PROVIDERS: PCP Family Medicine Geriatric Medicine; Referring Provider Physician Assistant; Visit Provider Physician Assistant
DX: I70.25 Atherosclerosis of native arteries of other extremities with ulceration (principal)
CPT/HCPCS: 75635; Q9967

== ENCOUNTER 2022-10-29 13:16 | Inpatient (IN) | payer MEDICARE, MEDICAID, SELFPAY ==
[2022-10-29] VITALS (13 sets, daily range): BP systolic 117–161; BP diastolic 60–118; PULSE 74–113; RESP 11–34; TEMP 36.5–36.7; O2SAT 94–100; BMI 33.6; BMI 33.0
--- NOTE | 2022-10-29 14:11 | EKG12_ITS ---
Test Reason : SOB Blood Pressure : / mmHG Vent. Rate : 081 BPM Atrial Rate : 081 BPM P-R Int : 118 ms QRS Dur : 090 ms QT Int : 358 ms P-R-T Axes : -09 030 083 degrees QTc Int : 415 ms Normal sinus rhythm Low voltage QRS Nonspecific T wave abnormality Abnormal ECG Confirmed by ROCHELLE LUQUE ([id number]), science editor STANISLAV OVIEDO ([id number]) on 11/02/2022 8:03:22 AM Referred By: BB/BETZAIDA Confirmed By:ROCHELLE LUQUE
--- NOTE | 2022-10-29 14:24 | ED.VIS.DYS ---
HPI History of Present Illness Chief Complaint: Shortness of Breath Informant: patient and SNF Narrative Narrative: Patient is a 71-year-old male on chronic oxygen therapy, with history of hypertension, COPD, osteomyelitis (nonambulatory at baseline), coronary artery disease status post CABG and prior history of aortic valve replacement presenting with increased cough and shortness of breath. Patient states maybe he has been coughing more for the past week or so. Nursing report is that patient has been more short of breath over the past 3 days with an increased wet cough. Report of rhonchi. Patient was recently started on Augmentin for cellulitis of his lower extremities. Patient denies any acute complaints at this time. [facility] Medical History (Updated 10/29/22 @ 20:[address] 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 Lumbar spinal stenosis MSSA (methicillin susceptible Staphylococcus aureus) infection Nicotine dependence Non-healing surgical wound (05/01/20) Nonrheumatic aortic (valve) stenosis 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 Obstructive sleep apnea Osteomyelitis Peripheral vascular occlusive disease Pleural effusion, right Scabies infestation Secondary pulmonary arterial hypertension Smoker Sternal wound infection Type 2 diabetes mellitus 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 foot with fat layer exposed Ulcer of right foot with necrosis of bone Home Medications metformin 500 mg tablet 500 mg PO BIDCM diabetes 05/31/20 [History Last Taken 09/21/21] atorvastatin 40 mg tablet 40 mg PO QHS cholesterol 11/12/20 [History Last Taken 09/20/21] potassium chloride 20 mEq tablet,extended release(part/cryst) 20 meq PO DAILY suipplement 12/23/20 [History Last Taken 12/22/20] linagliptin 5 mg tablet (Tradjenta) 5 mg PO DAILY DM 10/08/21 [History Last Taken Unknown] lisinopril 5 mg tablet 5 mg PO DAILY HTN 10/08/21 [History Last Taken Unknown] metoprolol succinate 25 mg tablet,extended release 24 hr 75 mg PO DAILY HTN 10/08/21 [History Last Taken Unknown] doxepin 50 mg capsule 50 mg PO QHS Check with primary doctor 02/11/22 [History Last Taken Unknown] insulin aspart U-100 100 unit/mL (3 mL) subcutaneous pen (Novolog FlexPen U-100 Insulin aspart) 10 unit (0.1 mL) subcut BIDCM diabetes #3 mL 02/12/22 [Rx Last Taken Unknown] insulin glargine 100 unit/mL (3 mL) subcutaneous pen (Lantus Solostar U-100 Insulin) 25 unit (0.25 mL) subcut DAILY DM #3 mL 02/12/22 [Rx Last Taken Unknown] ascorbic acid (vitamin C) 500 mg capsule 500 mg PO BID 10/14/22 [History Last Taken Unknown] furosemide 20 mg tablet 40 mg PO DAILY diuretic 10/14/22 [History Last Taken Unknown] gabapentin 100 mg capsule 200 mg PO BID pain 10/14/22 [History Last Taken Unknown] warfarin 6 mg tablet (Jantoven) 4 mg PO DAILY Check with primary doctor 10/14/22 [History Last Taken Unknown] amoxicillin 875 mg-potassium clavulanate 125 mg tablet 1 tab PO BID #20 tabs 10/19/22 [Rx Last Taken Unknown] cholecalciferol (vitamin D3) 50 mcg (2,000 unit) capsule (Vitamin D3) 50 mcg PO DAILY 10/29/22 [History Last Taken Unknown] ferrous sulfate 325 mg (65 mg iron) tablet 325 mg PO DAILY 10/29/22 [History Last Taken Unknown] ipratropium 0.5 mg-albuterol 3 mg (2.5 mg base)/3 mL nebulization soln 3 ml inhalation Q4H PRN SOB 10/29/22 [History Last Taken Unknown] Allergy/AdvReac Type Severity Reaction Status Date / Time No Known Allergies Allergy Verified 10/19/22 13:51 Family History Mother Diabetes Heart disease Father Diabetes Surgical History H/O coronary artery bypass surgery (05/01/20) History of angioplasty of peripheral vessel (01/02/10) History of femoropopliteal bypass (2008) History of incision and drainage (09/22/20) History of left heart catheterization (04/23/20) History of lumbar laminectomy History of mechanical aortic valve replacement Social History household members: significant other Smoking Status: Current every day smoker tobacco type: cigarettes alcohol intake: never substance use type: does not use caffeine: No ROS ROS ED Constitutional Constitutional ED: Denies chills or fever(s) Cardiovascular Cardiovascular: Denies chest pain Respiratory/Chest Respiratory/Chest: Reports cough and dyspnea Gastrointestinal Gastrointestinal: Denies abdominal pain or vomiting Musculoskeletal Musculoskeletal: Denies arthralgias or myalgias Integumentary Denies rash Neurologic Neurologic: Denies headache(s) Hematologic/Lymphatic Hematologic/Lymphatic: Reports easy bleeding and easy bruising EXAM Physical Exam Const Vital Signs: 10/29/22 13:19 10/29/22 13:53 10/29/22 14:38 Temperature 98.0 F Temperature Source Oral Pulse Rate 81 79 Respiratory Rate 20 H 22 H Respiratory Effort Short of Breath Respiratory Pattern Tachypnea Tachypnea Blood Pressure 147/79 H Blood Pressure Mean 101 Pulse Ox 98 Oxygen Delivery Method Nasal Cannula Nasal Cannula Oxygen Flow Rate (L/min) 4 2 Fraction of Inspired Oxygen (FIO2) 10/29/22 15:16 10/29/22 15:22 10/29/22 15:40 Temperature 97.8 F Temperature Source Temporal Pulse Rate 78 79 Respiratory Rate 27 H 12 Respiratory Effort Respiratory Pattern Tachypnea Blood Pressure 152/82 H Blood Pressure Mean 105 Pulse Ox 100 100 Oxygen Delivery Method Bi-pap Oxygen Flow Rate (L/min) Fraction of Inspired Oxygen (FIO2) 50 50 40 Positive well developed Constitutional Narrative: Chronically ill-appearing. Laying in the bed. General Appearance ED: well developed and NAD HEENT Reports moist mucous membranes atraumatic Eyes PERRL and EOMs intact bilaterally Neck supple Neck Narrative: Positive JVD Resp Resp Narrative: Mild tachypnea with shallow respirations. Coarse and wet breath sounds throughout. No wheezing appreciated. Positive rhonchi. Cardio regular rate and regular rhythm GI non-tender and non-distended Auscultation: normoactive bowel sounds Extremity normal to inspection General Extremety ED: Negative for edema General Extremity: Negative for edema Neuro Neuro Narrative: Patient slightly somnolent and not particularly interactive. Gives short vague answers to questions. [place] Coma Scale: document GCS findings To Voice Obeys Commands Oriented 14 Sensorium / Orientation: alert Psych mental status grossly normal Skin Skin Narrative: Bilateral chronic appearing erythema to the lower extremities. MDM MDM MDM Narrative Medical decision making narrative: Patient is evaluated for increased shortness of breath and confusion per halfway report. Patient is a poor historian. I do not know what his baseline is or if this is secondary to his respiratory status. He is taking shallow respirations and and his lungs sound wet. ABG is obtained which shows acute on chronic respiratory acidosis. Decision is made to place patient on BiPAP. He started on Lasix to diurese him. I suspect this is a CHF exacerbation. Chest x-ray to rule out myself as well as radiology shows recurrent right pleural effusion. Patient's kidney function is at his baseline. No significant Denita abnormalities. No ischemic changes on his EKG and his troponin is normal. Patient is not hypoxic. The case is discussed with my physician, Dr. Cox, who accepts him to the PCU stepdown. Patient had a INR of 3.2 drawn today per nursing facility report so it was not repeated in the emergency room. History & Record Review Discussion w/independent historian: Other (Nursing facility) Additional record(s) reviewed:: Prior outpatient record ([facility]) Lab Data Attestation: I reviewed the patient's lab results. Labs: Laboratory Results - last 24 hr 10/29/22 10/29/22 10/29/22 14:30 14:30 14:30 WBC 6.2 RBC 4.35 L Hgb 11.2 L Hct 39.2 L MCV 90.1 MCH 25.7 L MCHC 28.6 L RDW Std Deviation 72.4 H RDW Coeff of Estrada 21.7 H Plt Count 176 MPV 9.5 Immature Gran % (Auto) 0.500 Neut % (Auto) 69.5 Lymph % (Auto) 15.2 L Louisa % (Auto) 12.4 H Eos % (Auto) 1.8 Baso % (Auto) 0.6 Absolute Neuts (auto) 4.3 Absolute Lymphs (auto) 0.95 Nucleated RBC % 0 Platelet Estimate ADEQUATE Hypochromasia 1+ Poikilocytosis 1+ Anisocytosis 2+ Ovalocytes 1+ PT INR Sodium 132 L Potassium 5.6 H Chloride 105 Carbon Dioxide 24.0 Anion Gap 3 L BUN 30 H Creatinine 0.78 Estim Creat Clear Calc 74.25 Est GFR (MDRD) Af Amer 126 Est GFR (MDRD) Non-Af 105 BUN/Creatinine Ratio 38.4 H Glucose 189 H Calcium 8.7 Troponin I High Sens 22 B-Natriuretic Peptide 512.1 H 10/29/22 15:00 WBC RBC Hgb Hct MCV MCH MCHC RDW Std Deviation RDW Coeff of Estrada Plt Count MPV Immature Gran % (Auto) Neut % (Auto) Lymph % (Auto) Louisa % (Auto) Eos % (Auto) Baso % (Auto) Absolute Neuts (auto) Absolute Lymphs (auto) Nucleated RBC % Platelet Estimate Hypochromasia Poikilocytosis Anisocytosis Ovalocytes PT Cancelled INR Cancelled Sodium Potassium Chloride Carbon Dioxide Anion Gap BUN Creatinine Estim Creat Clear Calc Est GFR (MDRD) Af Amer Est GFR (MDRD) Non-Af BUN/Creatinine Ratio Glucose Calcium Troponin I High Sens B-Natriuretic Peptide ABG Data ABG results: ABG 10/29/22 14:54 Specimen Type ART Sample Site R Brach pH 7.34 L Bicarbonate Actual 31.5 H Total CO2 33 Base Excess 6 H O2 Saturation 97 ABG pCO2 58.3 H ABG pO2 95 Caesar Test Positive O2 Delivery Device Cannula Liter Flow 4.0 Radiography Chest X-Ray - ED: 1 View, Read by ED Physician, Read by Radiologist and Right Effusion Diagnostic Testing: Clinical Impression(s) from Imaging Studies Chest X-Ray 10/29/22 15:00 IMPRESSION: There is a right pleural effusion. Epigastric ventral hernia visualized extending along the right para midline. The hernia likely contains colon. Electronically Signed: Carson Morris MD at 15:30 EDT , Rhythm Strip Rhythm Strip: Sinus Rhythm Rate: 81 Ectopy: None EKG Initial EKG: Attestation: I personally reviewed and interpreted this EKG as follows: Interpretation: Sinus Rhythm Comments: Normal sinus rhythm at a rate of 81 bpm Normal axis Low voltage QRS Nonspecific T wave changes No change compared to prior EKG on 08/03/2022 Differential Diagnosis Chest pain/SOB: pulmonary embolism Reason(s) PE less likely: Positive for patient taking oral 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s, ACS ACS: Positive for no evidence of ACS based on cardiac biomarkers and EKG without ischemia, pneumothorax Reason(s) pneumothorax less likely: 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
[2022-10-29] MEDS: Ipratropium/Albuterol Sulfate 3 ML AMPUL.NEB INHALATION ×2 (14:36→23:18)
[2022-10-29 14:37] LABS: Absolute Lymphocyte Count 0.95 X10^3/uL (0.83-4.51); Absolute Neutrophil Count 4.3 X10^3/uL (2.0-7.7); Basophil# 0.04 X10^3/uL; Basophil% 0.6 % (0-1); Differential Indicated SCAN CRITERIA MET; Eosinophil# 0.11 X10^3/uL; Eosinophils% 1.8 % (0-5); Hematocrit 39.2 % (40-54); Hemoglobin 11.2 g/dL (13.0-16.5); Lymphocyte # 0.95 X10^3/ul (0.83-4.51); Lymphocyte % 15.2 % (19-41); Mean Corp Hgb Conc 28.6 g/dL (32-36); Mean Corpuscular Hgb 25.7 pg (27.0-32.0); Mean Corpuscular Volume 90.1 fL (80-94); Mean Platelet Vol. 9.5 fl (6.2-12.0); Monocyte# 0.77 X10^3/uL; Monocyte% 12.4 % (0-10); NRBC Flagged by Analyzer 0 % (0-5); Neutrophil # 4.33 X10^3/uL (2.7-7.7); Neutrophil % 69.5 % (47-70); POSITIVE MORPHOLOGY YES; Platelet Count 176 K/mm3 (150-450); RBC Distribution Width CV 21.7 % (11.6-14.6); RBC Distribution Width SD 72.4 fl (35.1-43.9); Red Blood Count 4.35 M/mm3 (4.6-6.2); White Blood Count 6.2 K/mm3 (4.4-11.0)
[2022-10-29 14:56] LABS: Anion Gap 3 (5-15); BUN 30 mg/dL (7-18); BUN/Creat Ratio 38.4 RATIO (10-20); Calcium,Total 8.7 mg/dL (8.5-10.1); Chloride 105 mmol/L (98-107); Creatinine, Serum 0.78 mg/dL (0.70-1.30); EST Glomerular Filtration Rate 105 mL/min (>60); Est Glom Filt Rate - Afr Amer 126 mL/min (>60); Estimated Creatinine Clearance 74.25 ml/min; Glucose 189 mg/dL (74-106); Potassium 5.6 mmol/L (3.5-5.1); Sodium Level 132 mmol/L (136-145); Troponin-I HS 22 pg/mL (3.0-78.0)
[2022-10-29 15:00] LABS: Allen Test Positive; Base Excess 6 mmol/L (-2 to +2); Bicarbonate 31.5 mmol/L (22-26); Blood Gas Specimen Type ART; O2 Delivery Device Cannula; PO2 95 mmHG (75-100); SITE R Brach; SO2 97 % (95-99); Total Carbon Dioxide 33 mmol/L; pCO2 58.3 mmHg (35-45); pH 7.34 (7.35-7.45)
--- NOTE | 2022-10-29 15:00 | RAD_ITS ---
STUDY: XR Chest 1 View 10/29/2022 3:02 PM REASON FOR EXAM: Male, 71 years old. CHEST PAIN sob COMPARISON: 08.04.22 TECHNIQUE: XR Chest 1 View FINDINGS: There is a right pleural effusion. Epigastric ventral hernia visualized extending along the right para midline. Normal heart size. Normal mediastinum. Normal thu. Prominent appearing increased interstitial lung markings. Normal visualized pulmonary arteries. There is atherosclerotic calcification of the aortic arch with tortuosity. There are diffuse degenerative changes of the visualized thoracic spine. There is degenerative osteoarthritis of the bilateral shoulders. RAD/Chest 1 View (Portable) IMPRESSION: There is a right pleural effusion. Epigastric ventral hernia visualized extending along the right para midline. The hernia likely contains colon. Electronically Signed: Carson Morris MD at 15:30 EDT ,
[2022-10-29 15:01] LABS: BNP,B-Type NATRIURETIC PEPTIDE 512.1 pg/mL (0-100)
[2022-10-29 15:02] LABS: Anisocytosis 2+; Hypochromasia 1+; Ovalocyte 1+; Platelet Estimate ADEQUATE (ADEQ); Poikilocytosis 1+
--- NOTE | 2022-10-29 15:24 | ED.RN ---
[facility] CALLED FOR AN UPDATE, REPORTS PT/INR RESULTS FROM THIS AM. PT 32.[address] LOERAINFORMED.
[2022-10-29] MEDS: Furosemide 40 MG/4 ML Vial IV (15:34)
--- NOTE | 2022-10-29 16:25 | ECHOCS_ITS ---
Reason For Study: CHF Procedure This was a 2D Doppler, Color Flow transthoracic echocardiogram. The study was technically difficult. Due to body habitus. Contrast injection was performed. Exam performed portable in patient room. Left Ventricle Normal left ventricle. The estimated ejection fraction is 40-45 %. Right Ventricle Normal right ventricle. Normal systolic function. Atria Normal left atrium. Normal right atrium. Mitral Valve The mitral valve is structurally normal. No prolapse or stenosis seen. Mild (1+) mitral valve insufficiency. Tricuspid Valve Normal tricuspid valve. Mild tricuspid valve insufficiency. Aortic Valve Normal-appearing bioprosthetic aortic valve. Pulmonic Valve The pulmonic valve is not well visualized. Great Vessels Normal aortic root. Pericardium/Pleural No pericardial effusion. Medication Diluted definity 3.0ml given slow IV push to enhance endocardial definition. MMode/2D Measurements & Calculations LVIDd: 5.1 cm IVSd: 1.3 cm LVOT diam: 2.1 cm LVIDs: 3.5 cm LVPWd: 1.3 cm FS: 29.8 % LVOT area: 3.4 cm2 LAV(MOD-bp): 80.3 ml LVAd ap4: 44.4 cm2 LVAd ap2: 28.7 cm2 LAV(MOD-bp) Indexed: 35.1 ml/m2 LVLd ap4: 9.0 cm LVLd ap2: 9.5 cm LAV(MOD-sp2): 78.6 ml EDV(MOD-sp4): 180.4 ml EDV(MOD-sp2): 69.8 ml LAV(MOD-sp4): 76.3 ml EDV(sp4-el): 185.8 ml EDV(sp2-el): 73.3 ml LVAs ap4: 29.1 cm2 LVAs ap2: 18.5 cm2 LVLs ap4: 8.9 cm LVLs ap2: 8.9 cm ESV(MOD-sp4): 79.1 ml ESV(MOD-sp2): 31.0 ml ESV(sp4-el): 80.4 ml ESV(sp2-el): 32.3 ml EF(MOD-sp4): 56.1 % EF(MOD-sp2): 55.5 % EF(sp4-el): 56.7 % SV(MOD-sp4): 101.2 ml SV(MOD-sp2): 38.8 ml SV(sp4-el): 105.4 ml LA A4 area: 24.0 cm2 LA dimension(2D): 5.1 cm RA A4 area: 21.5 cm2 Time Measurements MV dec time: 0.23 sec Doppler Measurements & Calculations MV E max eryn: 78.4 cm/sec Ao V2 max: 224.9 cm/sec MV A max eryn: 64.0 cm/sec MV dec slope: 372.6 cm/sec2 Ao max P.2 mmHg MV E/A: 1.2 Ao V2 mean: 167.0 cm/sec Ao mean P.8 mmHg Ao V2 VTI: 44.5 cm AV (velocity ratio): 0.39 HAWK(I,D): 1.4 cm2 HAWK(V,D): 1.2 cm2 LV V1 max: 77.6 cm/sec SV(LVOT): 60.4 ml PA V2 max: 66.4 cm/sec LV V1 max P.4 mmHg LV V1 mean P.7 mmHg LV V1 mean: 62.5 cm/sec LV V1 VTI: 17.5 cm ECHO/Echo Complete W/ Contrast Interpretation Summary The estimated ejection fraction is 40-45 %. Normal-appearing bioprosthetic aortic valve In comparison to previous echo in September 22, 2021 Improvement in LV systolic function. Ordering Physician: Ann Marie Cox Referring Physician: Saurabh Hernandez Chi Performed By: Mariam Laboy, JOCELYN, RVT
--- NOTE | 2022-10-29 16:27 | HP.PCM.HOS_ITS ---
HPI - General General Date of Admission: 10/29/22 Date of Service: 10/29/22 Chief Complaint: Shortness of breath HPI Narrative RAPHAEL HADDAD, is a 71 M with a history of lung disease ?copd, 2L home O2, hypertension, LE wounds, coronary artery disease status post CABG, on chronic O2, and prior mechanical aortic valve replacement on coumadin, HTN, combined systolic and diastolic congestive heart failure who presented to [facility] 10/29/2022 from [place] for altered mental status and wet cough with increasing shortness of breath for 3 days. History obtained from report and documentation as patient answered no to all questions and was a poor historian. Per report he was having increasing shortness of breath and cough f or several days to week. He had recently been started on Augmentin for cellulitis of his lower extremities but no other new complaints or abnormalities reported. In the ED he was tired and had difficulty answering questions. ABG revealed PCO2 of 58.3 hospitalist consulted for admission. Patient very poor historian and answered no to every question asked. Vitally stable and on BiPAP at time of exam, would wake up and answer questions albeit a poor historian but then falls back to sleep. [facility] Medical History (Updated 10/29/22 @ 18:[address] 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 Lumbar spinal stenosis MSSA (methicillin susceptible Staphylococcus aureus) infection Nicotine dependence Non-healing surgical wound (05/01/20) Nonrheumatic aortic (valve) stenosis 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 Obstructive sleep apnea Osteomyelitis Peripheral vascular occlusive disease Pleural effusion, right Scabies infestation Secondary pulmonary arterial hypertension Smoker Sternal wound infection Type 2 diabetes mellitus 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 foot with fat layer exposed Ulcer of right foot with necrosis of bone Home Medications metformin 500 mg tablet 500 mg PO BIDCM diabetes 05/31/20 [History Last Taken 09/21/21] atorvastatin 40 mg tablet 40 mg PO QHS cholesterol 11/12/20 [History Last Taken 09/20/21] potassium chloride 20 mEq tablet,extended release(part/cryst) 20 meq PO DAILY suipplement 12/23/20 [History Last Taken 12/22/20] linagliptin 5 mg tablet (Tradjenta) 5 mg PO DAILY DM 10/08/21 [History Last Taken Unknown] lisinopril 5 mg tablet 5 mg PO DAILY HTN 10/08/21 [History Last Taken Unknown] metoprolol succinate 25 mg tablet,extended release 24 hr 75 mg PO DAILY HTN 10/08/21 [History Last Taken Unknown] doxepin 50 mg capsule 50 mg PO QHS Check with primary doctor 02/11/22 [History Last Taken Unknown] insulin aspart U-100 100 unit/mL (3 mL) subcutaneous pen (Novolog FlexPen U-100 Insulin aspart) 10 unit (0.1 mL) subcut BIDCM diabetes #3 mL 02/12/22 [Rx Last Taken Unknown] insulin glargine 100 unit/mL (3 mL) subcutaneous pen (Lantus Solostar U-100 Insulin) 25 unit (0.25 mL) subcut DAILY DM #3 mL 02/12/22 [Rx Last Taken Unknown] ascorbic acid (vitamin C) 500 mg capsule 500 mg PO BID 10/14/22 [History Last Taken Unknown] furosemide 20 mg tablet 40 mg PO DAILY diuretic 10/14/22 [History Last Taken Unknown] gabapentin 100 mg capsule 200 mg PO BID pain 10/14/22 [History Last Taken Unknown] warfarin 6 mg tablet (Jantoven) 4 mg PO DAILY Check with primary doctor 10/14/22 [History Last Taken Unknown] amoxicillin 875 mg-potassium clavulanate 125 mg tablet 1 tab PO BID #20 tabs 10/19/22 [Rx Last Taken Unknown] cholecalciferol (vitamin D3) 50 mcg (2,000 unit) capsule (Vitamin D3) 50 mcg PO DAILY 10/29/22 [History Last Taken Unknown] ferrous sulfate 325 mg (65 mg iron) tablet 325 mg PO DAILY 10/29/22 [History Last Taken Unknown] ipratropium 0.5 mg-albuterol 3 mg (2.5 mg base)/3 mL nebulization soln 3 ml inhalation Q4H PRN SOB 10/29/22 [History Last Taken Unknown] Allergy/AdvReac Type Severity Reaction Status Date / Time No Known Allergies Allergy Verified 10/19/22 13:51 Family History Mother Diabetes Heart disease Father Diabetes Surgical History H/O coronary artery bypass surgery (05/01/20) History of angioplasty of peripheral vessel (01/02/10) History of femoropopliteal bypass (2008) History of incision and drainage (09/22/20) History of left heart catheterization (04/23/20) History of lumbar laminectomy History of mechanical aortic valve replacement Social History household members: significant other Smoking Status: Current every day smoker tobacco type: cigarettes alcohol intake: never substance use type: does not use caffeine: No ROS ROS Narrative Unable to obtain, patient very poor historian Vital Signs Vital Signs Vital Signs: 10/29/22 13:19 10/29/22 13:53 10/29/22 14:38 Temperature 98.0 F Temperature Source Oral Pulse Rate 81 79 Respiratory Rate 20 H 22 H Respiratory Effort Short of Breath Respiratory Pattern Tachypnea Tachypnea Blood Pressure 147/79 H Blood Pressure Mean 101 Pulse Ox 98 Oxygen Delivery Method Nasal Cannula Nasal Cannula Oxygen Flow Rate (L/min) 4 2 Fraction of Inspired Oxygen (FIO2) 10/29/22 15:16 10/29/22 15:22 10/29/22 15:40 Temperature 97.8 F Temperature Source Temporal Pulse Rate 78 79 Respiratory Rate 27 H 12 Respiratory Effort Respiratory Pattern Tachypnea Blood Pressure 152/82 H Blood Pressure Mean 105 Pulse Ox 100 100 Oxygen Delivery Method Bi-pap Oxygen Flow Rate (L/min) Fraction of Inspired Oxygen (FIO2) 50 50 40 10/29/22 16:04 Temperature Temperature Source Pulse Rate 74 Respiratory Rate Respiratory Effort Respiratory Pattern Blood Pressure Blood Pressure Mean Pulse Ox 100 Oxygen Delivery Method Oxygen Flow Rate (L/min) Fraction of Inspired Oxygen (FIO2) Weight Weight: 109.4 kg Body Mass Index (BMI) 33.6 Physical Exam Narrative General: Wakes up and will answer questions but says no to every question HEENT: Atraumatic Eyes: Anicteric, normal conjunctiva, extraocular movements grossly intact Neck: Supple Respiratory: Right-sided diminished, scattered wheezes, on BiPAP during exam Cardiovascular: Regular rate and rhythm GI: Soft, nontender, nondistended, ventral hernia palpated without tenderness Extremities: Chronic changes in lower extremities Musculoskeletal: Moving all extremities Neuro: No overt focal neurological deficits but cannot cooperate with exam Skin: Has chronic wounds on feet Psych: Unclear if unwilling to cooperate or unable to Results Lab / Micro Data Result Diagrams: 10/29/22 14:30 10/29/22 14:30 Labs: Laboratory Results - last 24 hr 10/29/22 14:30: WBC 6.2, RBC 4.35 L, Hgb 11.2 L, Hct 39.2 L, MCV 90.1, MCH 25.7 L, MCHC 28.6 L, RDW Std Deviation 72.4 H, RDW Coeff of Estrada 21.7 H, Plt Count 176, MPV 9.5, Immature Gran % (Auto) 0.500, Neut % (Auto) 69.5, Lymph % (Auto) 15.2 L, Letcher % (Auto) 12.4 H, Eos % (Auto) 1.8, Baso % (Auto) 0.6, Absolute Neuts (auto) 4.3, Absolute Lymphs (auto) 0.95, Nucleated RBC % 0, Platelet Estimate ADEQUATE, Hypochromasia 1+, Poikilocytosis 1+, Anisocytosis 2+, Ovalocytes 1+ 10/29/22 14:30: Sodium 132 L, Potassium 5.6 H, Chloride 105, Carbon Dioxide 24.0, Anion Gap 3 L, BUN 30 H, Creatinine 0.78, Estim Creat Clear Calc 74.25, Est GFR (MDRD) Af Amer 126, Est GFR (MDRD) Non-Af 105, BUN/Creatinine Ratio 38.4 H, Glucose 189 H, Calcium 8.7, Troponin I High Sens 22 10/29/22 14:30: B-Natriuretic Peptide 512.1 H 10/29/22 15:00: PT Cancelled, INR Cancelled ABG Data ABG results: ABG 10/29/22 14:54 Specimen Type ART Sample Site R Brach pH 7.34 L Bicarbonate Actual 31.5 H Total CO2 33 Base Excess 6 H O2 Saturation 97 ABG pCO2 58.3 H ABG pO2 95 Caesar Test Positive O2 Delivery Device Cannula Liter Flow 4.0 Rhythm Strip Rhythm Strip: Sinus Rhythm Rate: 81 Ectopy: None Radiology Impression Chest X-Ray 10/29/22 15:00 IMPRESSION: There is a right pleural effusion. Epigastric ventral hernia visualized extending along the right para midline. The hernia likely contains colon. Electronically Signed: Carson Morris MD at 15:30 EDT , Assessment & Plan Assessment/Plan (1) Acute hypercapnic respiratory failure: (2) Encephalopathy acute: (3) COPD (chronic obstructive pulmonary disease): (4) Essential (primary) hypertension: (5) H/O coronary artery bypass surgery: (6) History of mechanical aortic valve replacement: (7) Chronic combined systolic and diastolic CHF (congestive heart failure): (8) Secondary pulmonary arterial hypertension: (9) Peripheral vascular occlusive disease: (10) Type 2 diabetes mellitus: (11) Atherosclerosis of lower extremity with ulceration: PLAN: Plan #Shortness of breath/Acute hypercapnia * -AECHF vs AECOPD vs R pleural effusion, less likely PNA given wbc WNL and no left shift * -CXR remonstrated right pleural effusion with increased interstitial lung markings * -ABG with pH of 7.34 with a PO2 of 95 and a PCO2 of 58.3 patient placed on BiPAP * -BNP 512, has had higher in the past but does have persistent R pleural effusion and sounds more congested * -Given 40IV lasix and placed on bipap and responded to this * -40iv lasix qday * -Weights, I's and O's, incentive spirometry * -Did have some wheezing, nebs started * -COVID, respiratory panel * -Not hypoxic, improved after dose of lasix and bipap, will repeat CXR in AM, if any further clarification needed can obtain CT scan #Possible acute exacerbation of chronic systolic and diastolic heart failure * -As above * -Last echocardiogram 09/22/2021 showed EF of 30% with stage III diastolic dysfunction * -Repeat echo #hx R pleural effusion * -Low-dose lung CT 09/29/2022 with large right pleural effusion and associated atelectasis as well as a midline ventral hernia containing fat and bowel loops with diffuse induration of subcutaneous fat that had suggested anasarca. * -CXR difficult to evaluate effusion well d/t overlying ventral hernia * -Repeat CXR in AM, low threshold for CT for further characterize #Hx of underlying lung dz * -Had presumed to have COPD but recent PFTs 10/27 actually with moderately severe restrictive ventilatory defect with a symmetric reduction diffusion capacity and possible some stigmata of concomitant small airway disease which is less consistent with COPD * -Will need to continue following with pulm #Encephalopathy, likely metabolic * -Possibly 2/2 hypercapnea * -Started on bipap, improved hypercapnea * -Bipap qhs and prn * -Recent infxn of foot and hx of UTIs * -Cultures sent * -ESR/CRP * -Procal #R foot wound w/ Wound cx positive for MRSA and kocuria kristinae * -D/c augmentin, Start on vancomycin given sensitivities with MRSA, kocuria may be contaminant * -Obtain cultures * -Repeat procal, esr, crp, order LA * -Wound care c/s * -Had foot xray 10/19 w/ 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 No evidence of acute fracture. #Hyperkalemia * -Unclear etiology- resolved after lasix and recheck * -Receiving Lasix * -EKG heart rate 81 bpm and normal sinus rhythm with nonspecific T wave changes but no peaked T waves * -Hold home potassium supplementation #?History of DVT * -Previous documentation of DVT in old note but not documented elsewhere, will try to clarify * -Chronically on Coumadin #Coronary disease status post CABG 04/2020/mechanical [facility] AVR/PAD s/p fempop bypass * -Cont asa, statin * -Followed by vascular on outpatient basis, has had previous intervention for breast peripheral artery disease * -INR 3.3, continue coumadin, daily INRs * -If subtherapeutic will need bridged with heparin given dinkey mechanic valve #Type 2 diabetes mellitus * -Glucose checks and sliding scale insulin * -Long-acting insulin #DVT ppx: Therapeutic on Coumadin Ann Marie Cox MD Time spent in the patient's overall evaluation,decision-making process, review of diagnostic data, adjustment of management, discussion with other providers, nursing nursing and ancillary staff involved in patient's care documentation, 75 minutes Charges/Coding Visit Charges Inpatient E&M: 00443 Init Hosp L3
[2022-10-29 16:56] LABS: Base Excess 7 mmol/L (-2 to +2); Bicarbonate 31.8 mmol/L (22-26); Blood Gas Specimen Type ART; FI02 40; O2 Delivery Device BiPAP; PEEP 8; PO2 87 mmHG (75-100); RR 14; SITE L Brach; SO2 97 % (95-99); Total Carbon Dioxide 33 mmol/L; pCO2 50.5 mmHg (35-45); pH 7.41 (7.35-7.45)
[2022-10-29 18:00] LABS: Bedside Glucose 139 mg/dL (74-106)
[2022-10-29 18:11] LABS: International Normalized Ratio 3.3; Prothrombin Time (Protime)PT. 33.3 SECONDS (11.7-14.9)
[2022-10-29 18:13] LABS: ALB/GLOB Ratio 0.8 RATIO (0.9-2.4); AST(SGOT) 20 U/L (15-37); Alanine Aminotransfer ALT/SGPT 17 U/L (16-61); Alkaline Phosphatase 183 U/L (45-117); Anion Gap 1 (5-15); BUN 31 mg/dL (7-18); BUN/Creat Ratio 36.7 RATIO (10-20); Chloride 103 mmol/L (98-107); Creatinine, Serum 0.84 mg/dL (0.70-1.30); EST Glomerular Filtration Rate 95 mL/min (>60); Est Glom Filt Rate - Afr Amer 115 mL/min (>60); Globulin 3.8 g/dL (2.2-4.2); Glucose 173 mg/dL (74-106); Potassium 4.9 mmol/L (3.5-5.1); Protein, Total 6.8 g/dL (6.4-8.2); Sodium Level 136 mmol/L (136-145)
[2022-10-29 19:10] LABS: Erythrocyte Sedimentation Rate 34 mm/hr (0-20)
[2022-10-29 19:13] LABS: Procalcitonin 0.06 ng/mL (0.00-0.09)
[2022-10-29] MEDS: 0.9% Saline Lock 10 ML Syringe IV (19:58)
[2022-10-29 20:12] LABS: Lactic Acid 1.2 mmol/L (0.4-1.9)
--- NOTE | 2022-10-29 20:14 | PHA.PHARE_ITS ---
Consult Pharmacy has been consulted to manage selected antiobiotic: Vancomycin Type of Consult: New start Suspected Infection: Skin/Soft tissue Labs: Sodium 136 mmol/L (136-145) 10/29/22 17:49 Potassium 4.9 mmol/L (3.5-5.1) 10/29/22 17:49 Chloride 103 mmol/L (98-107) 10/29/22 17:49 Carbon Dioxide 32.0 mmol/L (21.0-32.0) 10/29/22 17:49 Anion Gap 1 (5-15) L 10/29/22 17:49 BUN 31 mg/dL (7-18) H 10/29/22 17:49 Creatinine 0.84 mg/dL (0.70-1.30) 10/29/22 17:49 Est GFR (MDRD) Af Amer 115 mL/min (>60) 10/29/22 17:49 Est GFR (MDRD) Non-Af 95 mL/min (>60) 10/29/22 17:49 BUN/Creatinine Ratio 36.7 RATIO (10-20) H 10/29/22 17:49 Glucose 173 mg/dL (74-106) H 10/29/22 17:49 Microbiology: Microbiology 10/29/22 17:30 Nasal Secretion SARS-CoV-2 & FLU Antigen (Rapid) - Final Weight used for dosin.5 kg Estimated Creatinine Clearance: 103ML/MIN Goal Trough: 15-20 mcg/mL Pharmacy Plan for Drug Dosing: Give 2000mg IV x1 tonight, then continue with 2000mg IV q12h. Opted to go one step down from the 1250mg IV q8h that the [facility] dosing chart recommended since the patient is 71 years old - did not want to start with q8h dosing due to his age. Will order a trough before the 4th dose. The patient's CrCl of 103 ml/min was calculated using an adjusted body weight. Pharmacy Service will continue to monitor and adjust dosing as required. Follow-Up Labs: Trough Vancomycin Labs to be done on [date and time ordered]: 10/31/22 07:30
[2022-10-29] MEDS: Atorvastatin Calcium 40 MG Tablet PO (22:04)
--- NOTE | 2022-10-29 23:50 | CPS ---
Pt resting comfortably, no respiratory distress observed
[2022-10-30] VITALS (15 sets, daily range): BP systolic 117–143; BP diastolic 60–85; PULSE 79–92; RESP 18–30; TEMP 36.5–36.8; O2SAT 91–99
[2022-10-30] MEDS: Insulin Lispro 100 UNIT/ML INSULN.PEN SC ×5 (00:49→22:23)
[2022-10-30 01:25] LABS: Bedside Glucose 169 mg/dL (74-106)
[2022-10-30] MEDS: Ipratropium/Albuterol Sulfate 3 ML AMPUL.NEB INHALATION ×6 (02:02→23:21)
--- NOTE | 2022-10-30 05:05 | RAD_ITS ---
EXAM: XR CHEST, 1 VIEW CLINICAL INDICATION: f/u pleural effusion/ abn cxr TECHNIQUE: Frontal view of the chest. This report was created using [employer] report generation technology. COMPARISON: 10/29/2022. FINDINGS: LUNGS AND PLEURAL SPACES: Large right pleural effusion similar to the prior exam. No pneumothorax. HEART: Unremarkable. Cardiac silhouette not enlarged. MEDIASTINUM: Central airways and mediastinal contour are unremarkable. BONES/JOINTS: Unremarkable. SOFT TISSUES: Large ventral hernia again seen overlying the right side of the chest. RAD/Chest 1 View (Portable) IMPRESSION: 1. Large ventral hernia again seen overlying the right side of the chest. 2. Large right pleural effusion similar to the prior exam. Electronically Signed: Jose Cruz English MD at 7:49 EDT ,
[2022-10-30 06:06] LABS: Bedside Glucose 189 mg/dL (74-106)
[2022-10-30 07:38] LABS: Hematocrit 34.9 % (40-54); Hemoglobin 10.2 g/dL (13.0-16.5); Mean Corp Hgb Conc 29.2 g/dL (32-36); Mean Corpuscular Hgb 25.8 pg (27.0-32.0); Mean Corpuscular Volume 88.1 fL (80-94); Mean Platelet Vol. 10.3 fl (6.2-12.0); POSITIVE MORPHOLOGY YES; Platelet Count 173 K/mm3 (150-450); RBC Distribution Width CV 21.8 % (11.6-14.6); RBC Distribution Width SD 70.8 fl (35.1-43.9); Red Blood Count 3.96 M/mm3 (4.6-6.2)
[2022-10-30 07:45] LABS: Scan Indicated on CBC? Y/N YES- FLAGS NOTED
[2022-10-30] MEDS: Metoprolol(XL)Succ 25 MG Tablet 75 MG PO (08:23)
[2022-10-30] MEDS: Insulin Glargine-YFGN 100 UNIT/ML Pen 15 UNIT SC (08:23)
[2022-10-30] MEDS: Furosemide 40 MG/4 ML Vial IV (08:23)
[2022-10-30] MEDS: 0.9% Saline Lock 10 ML Syringe IV (08:24)
[2022-10-30] MEDS: Lisinopril 5 MG Tablet PO (08:24)
[2022-10-30 08:43] LABS: ALB/GLOB Ratio 0.8 RATIO (0.9-2.4); AST(SGOT) 19 U/L (15-37); Alanine Aminotransfer ALT/SGPT 15 U/L (16-61); Alkaline Phosphatase 173 U/L (45-117); Anion Gap 2 (5-15); BUN 27 mg/dL (7-18); BUN/Creat Ratio 38.4 RATIO (10-20); Calcium,Total 8.9 mg/dL (8.5-10.1); Chloride 104 mmol/L (98-107); EST Glomerular Filtration Rate 118 mL/min (>60); Est Glom Filt Rate - Afr Amer 143 mL/min (>60); Estimated Creatinine Clearance 74.25 ml/min; Globulin 3.8 g/dL (2.2-4.2); Glucose 175 mg/dL (74-106); Magnesium 1.9 mg/dL (1.6-2.6); Potassium 4.8 mmol/L (3.5-5.1); Protein, Total 6.8 g/dL (6.4-8.2); Sodium Level 136 mmol/L (136-145)
--- NOTE | 2022-10-30 09:03 | PN.HOSP_ITS ---
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 Was not able to voice any other complaints Objective Data Objective Data Vital Signs: Vital Signs Temp Pulse Resp BP Pulse Ox O2 Del Method O2 Flow Rate 97.9 F 80 18 138/72 H 95 Nasal Cannula 2 10/30/22 08:21 10/30/22 08:23 10/30/22 08:21 10/30/22 08:21 10/30/22 08:21 10/30/22 08:21 10/30/22 08:21 FiO2 50 10/29/22 16:08 Oxygen Flow Rate (L/min) 2 Oxygen Delivery Method Nasal Cannula Weight: 107.501 kg Body Mass Index (BMI) 33.0 Intake & Output: Intake and Output for Last 24 Hours 10/28/22 10/29/22 10/30/22 23:59 23:59 23:59 Intake Total 540 / 540 120 / 120 Output Total 670 / 670 Balance 540 / 540 -550 / -550 Lab / Micro Data Result Diagrams: 10/30/22 06:30 10/30/22 06:30 Labs: Laboratory Results - last 24 hr 10/29/22 14:30: WBC 6.2, RBC 4.35 L, Hgb 11.2 L, Hct 39.2 L, MCV 90.1, MCH 25.7 L, MCHC 28.6 L, RDW Std Deviation 72.4 H, RDW Coeff of Estrada 21.7 H, Plt Count 176, MPV 9.5, Immature Gran % (Auto) 0.500, Neut % (Auto) 69.5, Lymph % (Auto) 15.2 L, Granite % (Auto) 12.4 H, Eos % (Auto) 1.8, Baso % (Auto) 0.6, Absolute Neuts (auto) 4.3, Absolute Lymphs (auto) 0.95, Nucleated RBC % 0, Platelet Estimate ADEQUATE, Hypochromasia 1+, Poikilocytosis 1+, Anisocytosis 2+, Ovalocytes 1+ 10/29/22 14:30: Sodium 132 L, Potassium 5.6 H, Chloride 105, Carbon Dioxide 24.0, Anion Gap 3 L, BUN 30 H, Creatinine 0.78, Estim Creat Clear Calc 74.25, Est GFR (MDRD) Af Amer 126, Est GFR (MDRD) Non-Af 105, BUN/Creatinine Ratio 38.4 H, Glucose 189 H, Calcium 8.7, Troponin I High Sens 22 10/29/22 14:30: B-Natriuretic Peptide 512.1 H 10/29/22 15:00: PT Cancelled, INR Cancelled 10/29/22 17:43: POC Glucose 139 H 10/29/22 17:49: PT 33.3 H, INR 3.3 10/29/22 17:49: Sodium 136, Potassium 4.9, Chloride 103, Carbon Dioxide 32.0, Anion Gap 1 L, BUN 31 H, Creatinine 0.84, Estim Creat Clear Calc 88.40, Est GFR (MDRD) Af Amer 115, Est GFR (MDRD) Non-Af 95, BUN/Creatinine Ratio 36.7 H, Glucose 173 H, Calcium 9.0, Total Bilirubin 1.20 H, AST 20, ALT 17, Alkaline Phosphatase 183 H, Total Protein 6.8, Albumin 3.0 L, Globulin 3.8, Albumin/Globulin Ratio 0.8 L 10/29/22 17:49: ESR 34 H 10/29/22 17:49: C-React Prot Ext Range 19.70 H 10/29/22 17:49: Procalcitonin 0.06 10/29/22 19:20: Lactic Acid 1.2 10/30/22 00:46: POC Glucose 169 H 10/30/22 05:42: POC Glucose 189 H 10/30/22 06:30: WBC 5.0, RBC 3.96 L, Hgb 10.2 L, Hct 34.9 L, MCV 88.1, MCH 25.8 L, MCHC 29.2 L, RDW Std Deviation 70.8 H, RDW Coeff of Estrada 21.8 H, Plt Count 173, MPV 10.3, Differential Comment 10/30/22 06:30: Sodium 136, Potassium 4.8, Chloride 104, Carbon Dioxide 30.0, Anion Gap 2 L, BUN 27 H, Creatinine 0.70, Estim Creat Clear Calc 74.25, Est GFR (MDRD) Af Amer 143, Est GFR (MDRD) Non-Af 118, BUN/Creatinine Ratio 38.4 H, Glucose 175 H, Calcium 8.9, Magnesium 1.9, Total Bilirubin 1.30 H, AST 19, ALT 15 L, Alkaline Phosphatase 173 H, Total Protein 6.8, Albumin 3.0 L, Globulin 3.8, Albumin/Globulin Ratio 0.8 L Micro: Microbiology 10/29/22 17:30 Mucosa - Nose Respiratory Panel (PCR) - Final 10/29/22 17:30 Nasal Secretion SARS-CoV-2 & FLU Antigen (Rapid) - Final ABG Data ABG results: ABG 10/29/22 10/29/22 14:54 16:51 Specimen Type ART ART Sample Site R Brach L Brach pH 7.34 L 7.41 Bicarbonate Actual 31.5 H 31.8 H Total CO2 33 33 Base Excess 6 H 7 H O2 Saturation 97 97 O2 % 40 ABG pCO2 58.3 H 50.5 H ABG pO2 95 87 Caesar Test Positive Respiration Rate 14 O2 Delivery Device Cannula BiPAP Liter Flow 4.0 POC PEEP 8 Radiography Diagnostic Testing: Radiology Impression Chest X-Ray 10/29/22 15:00 IMPRESSION: There is a right pleural effusion. Epigastric ventral hernia visualized extending along the right para midline. The hernia likely contains colon. Electronically Signed: Carson Morris MD at 15:30 EDT , Chest X-Ray 10/30/22 05:05 IMPRESSION: 1. Large ventral hernia again seen overlying the right side of the chest. 2. Large right pleural effusion similar to the prior exam. Electronically Signed: Jose Cruz English MD at 7:49 EDT , Rhythm Strip Rhythm Strip: Sinus Rhythm Rate: 81 Ectopy: None Physical Exam Narrative General: Alert but confused, no apparent distress HEENT: Atraumatic, normocephalic Eyes: Anicteric, normal conjunctiva, extraocular movements grossly intact Neck: Supple Respiratory: Diminished at the bases right greater than left, normal respiratory effort Cardiovascular: Regular rate and rhythm GI: Soft, nontender, nondistended, ventral hernia noted Extremities: No edema Musculoskeletal: Moving all extremities Neuro: No overt focal neurological deficits Skin: Has second toe on his right foot open with some drainage, middle toe on left foot also open Psych: Cooperative Assessment & Plan Assessment/Plan (1) Acute hypercapnic respiratory failure: (2) Encephalopathy acute: (3) COPD (chronic obstructive pulmonary disease): (4) Essential (primary) hypertension: (5) H/O coronary artery bypass surgery: (6) History of mechanical aortic valve replacement: (7) Chronic combined systolic and diastolic CHF (congestive heart failure): (8) Secondary pulmonary arterial hypertension: (9) Peripheral vascular occlusive disease: (10) Type 2 diabetes mellitus: (11) Atherosclerosis of lower extremity with ulceration: PLAN: Plan #Shortness of breath/Acute hypercapnia * -AECHF vs AECOPD vs R pleural effusion, less likely PNA given wbc WNL and no left shift * -CXR remonstrated right pleural effusion with increased interstitial lung markings * -ABG with pH of 7.34 with a PO2 of 95 and a PCO2 of 58.3 patient placed on BiPAP * -BNP 512, has had higher in the past but does have persistent R pleural effusion and sounds more congested * -Given 40IV lasix and placed on bipap and responded to this * -40iv lasix qday * -Weights, I's and O's, incentive spirometry * -Did have some wheezing, nebs started * -COVID, respiratory panel * -Not hypoxic, improved after dose of lasix and bipap, will repeat CXR in AM, if any further clarification needed can obtain CT scan -10/30: More awake and alert today though not oriented, did have what sounded to be a wet cough. Respiratory panel and COVID-negative, will order sputum culture and urine antigens due to productive cough though still suspect fluid overload as primary culprit, continue Lasix #R foot wound w/ Wound cx positive for MRSA and kocuria kristinae * -D/c augmentin, Start on vancomycin given sensitivities with MRSA, kocuria may be contaminant * -Obtain cultures * -Repeat procal, esr, crp, order LA * -Wound care c/s * -Had foot xray 10/19 w/ 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 No evidence of acute fracture. -10/30: Has second toe on his right foot open with some drainage, middle toe on left foot also open, on vancomycin. Blood cx pending. Given that R is open and draining and review of records scanned 10/20/22, page 24 was wound evaluation which reported concern for osteomyelitis and recommended hospitalization and pos sible amputation, as well as wound cultures podiatry has been consulted for further recommendations and management. ESR went down slightly over the course of 10 days CRP went up slightly, awaiting a.m. lab values #Possible acute exacerbation of chronic systolic and diastolic heart failure * -As above * -Last echocardiogram 09/22/2021 showed EF of 30% with stage III diastolic dysfunction * -Repeat echo #hx R pleural effusion * -Low-dose lung CT 09/29/2022 with large right pleural effusion and associated atelectasis as well as a midline ventral hernia containing fat and bowel loops with diffuse induration of subcutaneous fat that had suggested anasarca. * -CXR difficult to evaluate effusion well d/t overlying ventral hernia * -Repeat CXR in AM, low threshold for CT for further characterize ?10/30: Continue Lasix, respiratory status improving. Chest x-ray roughly unchanged based on read but on review does appear to have improved aeration. Continue current management #Hx of underlying lung dz * -Had presumed to have COPD but recent PFTs 10/27 actually with moderately severe restrictive ventilatory defect with a symmetric reduction diffusion capacity and possible some stigmata of concomitant small airway disease which is less consistent with COPD * -Will need to continue following with pulm #Encephalopathy, likely metabolic * -Possibly 2/2 hypercapnea * -Started on bipap, improved hypercapnea * -Bipap qhs and prn * -Recent infxn of foot and hx of UTIs * -Cultures sent * -ESR/CRP * -Procal -10/30: Improving, continue to address underlying etiology #Hyperkalemia * -Unclear etiology- resolved after lasix and recheck * -Receiving Lasix * -EKG heart rate 81 bpm and normal sinus rhythm with nonspecific T wave changes but no peaked T waves * -Hold home potassium supplementation #?History of DVT * -Previous documentation of DVT in old note but not documented elsewhere, will try to clarify * -Chronically on Coumadin #Coronary disease status post CABG 04/2020/mechanical 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 INR #Type 2 diabetes mellitus * -Glucose checks and sliding scale insulin * -Long-acting insulin #DVT ppx: Therapeutic on Coumadin Ann Marie Cox MD Time spent in the patient's overall evaluation,decision-making process, review of diagnostic data, adjustment of management, discussion with other providers, nursing nursing and ancillary staff involved in patient's care documentation, 35 minutes Charges/Coding Visit Charges Inpatient E&M: 06263 Subs Hosp L2
[2022-10-30 10:18] LABS: International Normalized Ratio 3.1; Prothrombin Time (Protime)PT. 31.8 SECONDS (11.7-14.9)
[2022-10-30] MEDS: Ferrous Sulfate 325 MG Tablet PO ×2 (11:27→16:28)
[2022-10-30 11:51] LABS: Bedside Glucose 230 mg/dL (74-106)
--- NOTE | 2022-10-30 12:59 | CASEMGMT ---
Social Work Pt is here from [facility]. SW spoke w/pt, he plans to return at discharge, declined a list of other nursing homes in the area. Pt states has been at [facility] a few weeks. After reviewing chart it appears pt has been at [facility] since July. W/pt's permission, SW called pt's THANG Bagleymary ellenjanae. Message left. SW sent updates to [facility] in [place], also inquired if pt is there short or terminal carman, skilled or intermediate, and if pt will need a precert to return. It is anticipated pt will need a precert, SW to follow up Tuesday as we will not be able to get authorization on the weekend. SW will continue to follow. DARIO Heredia
[2022-10-30 17:40] LABS: Bedside Glucose 263 mg/dL (74-106)
[2022-10-30 17:56] LABS: Bacteria 0 SEEN /hpf (None Seen); Mucous, Urine 0 SEEN /hpf (<or=2+); Red Blood Cells-Urine 0 SEEN /hpf (0-5); Squamous Epithelial Cells - UA 0 SEEN /hpf (0-5)
[2022-10-30 18:15] LABS: Color, Urine Yellow (Yellow); Glucose, Dipstick Normal (Normal); Ketone-Dipstick Negative (Negative); Leukocyte Esterase-Dipstick 25 /ul (Negative); Nitrite-Dipstick Negative (Negative); Occult Blood-Urine Negative /ul (Negative); Protein-Dipstick 30 mg/dl (Negative); Urine Bilirubin Dipstick Negative (Negative); Urine Clarity Clear (Clear); Urine Urobilinogen 12 mg/dl (Normal)
--- NOTE | 2022-10-30 18:17 | PCM.CONS.GEN ---
Assessment & Plan Assessment/Plan (1) Type 2 diabetes mellitus: (2) Atherosclerosis of lower extremity with ulceration: (3) COPD (chronic obstructive pulmonary disease): (4) Nicotine dependence: (5) Peripheral vascular occlusive disease: (6) Inability to walk: (7) Non-pressure chronic ulcer of other part of left foot with fat layer exposed: (8) Non-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: PLAN: Plan Seen and evaluated Second digit of the left foot demonstrates superficial ulceration to the distal tuft with some granular tissue as well as epithelialization. No signs of infection. Ulceration underwent sharp debridement utilizing #15 blade. 100% of the ulceration was debrided. No anesthesia was necessary secondary to patient's peripheral neuropathy. Debridement performed to the level of the subcutaneous tissue removing fibrous, devitalized subcutaneous, biofilm, slough. Hemostasis achieved with pressure and gauze. Patient tolerated the procedure well. Right foot second digit demonstrates ulceration overlying the dorsal aspect of the proximal interphalangeal joint with exposure of the head of the proximal phalanx. No signs of infection. Bone quality is noted to be hard. Second digit left foot second digit right foot painted with Betadine and dressed with dry sterile dressing. Dressings changed daily. Nursing to assist in dressing changes. WBC currently 5.0 Cultures of right foot second digit positive for MRSA and kocuria kristinae. Currently on IV vancomycin Imaging: Radiographs obtained 10/19/2022 demonstrate severe degenerative changes of the second metatarsophalangeal joint and partial first ray amputation. I discussed with the patient his need to stop smoking to aid in healing status as well as improve breathing. Patient states that will not happen, I will never stop smoking. I discussed with the patient today the status of his second digit ulceration of the right foot currently demonstrates no acute signs of infection however there is a high likelihood that bone infection is established and that he would likely require a second digit amputation to prevent worsening of infection. I discussed that amputation will likely proceed in the next few days. LEAS will be ordered. Medicine team currently following for medical management, they are greatly appreciated. Podiatry will continue to follow while in house. Please do not hesitate to call for any questions or concerns. Jr. Raleigh IbarraP.M. [facility] [phone] HPI Consult Data Date of Consult: 10/30/22 HPI Narrative Reason for Consultation: Second digit wound right foot and second digit wound left foot HPI Narrative: RAPHAEL HADDAD, is a 71 M who presents to [facility] ED on 10/29/2022 from his [facility], [facility]. He has PMHx of COPD, HTN, CAD s/p CABG, prior mechanical aortic valve replacement on Coumadin, combined systolic and diastolic CHF, bilateral lower extremity wounds, chronic tobacco use. He was brought to ED secondary to shortness of breath duration of 3 days with wet cough and altered mental status. Nursing staff at [facility] states and documentation nonhealing wound to the second digit of the right foot with concern for osteomyelitis. Patient was consulted to podiatry for bilateral lower extremity wounds. Discussed with patient how long wounds present he states just a few days however documentation states few weeks. He was previously on Augmentin for bilateral lower extremity cellulitis. Patient is poor historian with difficulty answering questions. Does admit to smoking with no intention of stopping. When seen bedside today he still is complaining of dyspnea and cough. Denies N/V/S/chills. Denied further complaints. [facility] Medical History (Updated 10/30/22 @ 18:[address] 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 Lumbar spinal stenosis MSSA (methicillin susceptible Staphylococcus aureus) infection Nicotine dependence Non-healing surgical wound (05/01/20) Nonrheumatic aortic (valve) stenosis 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 Obstructive sleep apnea Osteomyelitis Peripheral vascular occlusive disease Pleural effusion, right Scabies infestation Secondary pulmonary arterial hypertension Smoker Sternal wound infection Type 2 diabetes mellitus 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 foot with fat layer exposed Ulcer of right foot with necrosis of bone Home Medications metformin 500 mg tablet 500 mg PO BIDCM diabetes 05/31/20 [History Last Taken 09/21/21] atorvastatin 40 mg tablet 40 mg PO QHS cholesterol 11/12/20 [History Last Taken 09/20/21] potassium chloride 20 mEq tablet,extended release(part/cryst) 20 meq PO DAILY suipplement 12/23/20 [History Last Taken 12/22/20] linagliptin 5 mg tablet (Tradjenta) 5 mg PO DAILY DM 10/08/21 [History Last Taken Unknown] lisinopril 5 mg tablet 5 mg PO DAILY HTN 10/08/21 [History Last Taken Unknown] metoprolol succinate 25 mg tablet,extended release 24 hr 75 mg PO DAILY HTN 10/08/21 [History Last Taken Unknown] doxepin 50 mg capsule 50 mg PO QHS Check with primary doctor 02/11/22 [History Last Taken Unknown] insulin aspart U-100 100 unit/mL (3 mL) subcutaneous pen (Novolog FlexPen U-100 Insulin aspart) 10 unit (0.1 mL) subcut BIDCM diabetes #3 mL 02/12/22 [Rx Last Taken Unknown] insulin glargine 100 unit/mL (3 mL) subcutaneous pen (Lantus Solostar U-100 Insulin) 25 unit (0.25 mL) subcut DAILY DM #3 mL 02/12/22 [Rx Last Taken Unknown] ascorbic acid (vitamin C) 500 mg capsule 500 mg PO BID 10/14/22 [History Last Taken Unknown] furosemide 20 mg tablet 40 mg PO DAILY diuretic 10/14/22 [History Last Taken Unknown] gabapentin 100 mg capsule 200 mg PO BID pain 10/14/22 [History Last Taken Unknown] warfarin 6 mg tablet (Jantoven) 4 mg PO DAILY Check with primary doctor 10/14/22 [History Last Taken Unknown] amoxicillin 875 mg-potassium clavulanate 125 mg tablet 1 tab PO BID #20 tabs 10/19/22 [Rx Last Taken Unknown] cholecalciferol (vitamin D3) 50 mcg (2,000 unit) capsule (Vitamin D3) 50 mcg PO DAILY 10/29/22 [History Last Taken Unknown] ferrous sulfate 325 mg (65 mg iron) tablet 325 mg PO DAILY 10/29/22 [History Last Taken Unknown] ipratropium 0.5 mg-albuterol 3 mg (2.5 mg base)/3 mL nebulization soln 3 ml inhalation Q4H PRN SOB 10/29/22 [History Last Taken Unknown] Allergy/AdvReac Type Severity Reaction Status Date / Time No Known Allergies Allergy Verified 10/19/22 13:51 Family History Mother Diabetes Heart disease Father Diabetes Surgical History H/O coronary artery bypass surgery (05/01/20) History of angioplasty of peripheral vessel (01/02/10) History of femoropopliteal bypass (2008) History of incision and drainage (09/22/20) History of left heart catheterization (04/23/20) History of lumbar laminectomy History of mechanical aortic valve replacement Social History household members: significant other Smoking Status: Current every day smoker tobacco type: cigarettes alcohol intake: never substance use type: does not use caffeine: No ROS ROS Narrative Unable to obtain due to poor historian Physical Exam Const alert, oriented x3 and no apparent distress General Appearance: cooperative HEENT normocephalic Eyes General Eye: normal appearance of both eyes Neck General: normal visual inspection Lymph Lymphatic: no lymphadenopathy noted and no lymphedema noted Resp Resp Narrative: Does have decreased lung sounds right greater than left, effort normal. Cardio regular rate and regular rhythm Extremity normal capillary refill, no calf tenderness and no pedal edema Extremity Narrative: DP and PT pulses weakly palpable with adequate capillary fill time bilateral Skin no rashes or lesions noted, skin turgor normal and no jaundice Wound Narrative: Left lower extremity: There is a second digit wound noted to the distal tuft that is superficial in nature. There is mixed granular tissue with some epithelialization and xerotic skin. No purulent drainage noted, no malodor, no palpable fluctuance/bogginess, no visible abscess, no lymphangitic streaking. Right lower extremity: There is a dorsal ulceration noted to the second digit overlying the proximal interphalangeal joint with exposure of the head of the proximal phalanx. Exposed portion of bone is noted to be slightly discolored but of quality hardness. No erythema, no purulent drainage, no malodor, no palpable fluctuance/bogginess, no visible abscess, no lymphangitic streaking. Neuro moves all extremities Neuro Narrative: There is weakness to the lower extremities There is decreased sensation to bilateral lower extremities consistent with peripheral polyneuropathy Lab / Micro Data Result Diagrams: 10/30/22 06:30 10/30/22 06:30 Labs: Laboratory Results - last 24 hr 10/29/22 17:49: ESR 34 H 10/29/22 17:49: C-React Prot Ext Range 19.70 H 10/29/22 17:49: Procalcitonin 0.06 10/29/22 19:20: Lactic Acid 1.2 10/30/22 00:46: POC Glucose 169 H 10/30/22 05:42: POC Glucose 189 H 10/30/22 06:30: WBC 5.0, RBC 3.96 L, Hgb 10.2 L, Hct 34.9 L, MCV 88.1, MCH 25.8 L, MCHC 29.2 L, RDW Std Deviation 70.8 H, RDW Coeff of Estrada 21.8 H, Plt Count 173, MPV 10.3, Differential Comment 10/30/22 06:30: Sodium 136, Potassium 4.8, Chloride 104, Carbon Dioxide 30.0, Anion Gap 2 L, BUN 27 H, Creatinine 0.70, Estim Creat Clear Calc 74.25, Est GFR (MDRD) Af Amer 143, Est GFR (MDRD) Non-Af 118, BUN/Creatinine Ratio 38.4 H, Glucose 175 H, Calcium 8.9, Magnesium 1.9, Total Bilirubin 1.30 H, AST 19, ALT 15 L, Alkaline Phosphatase 173 H, Total Protein 6.8, Albumin 3.0 L, Globulin 3.8, Albumin/Globulin Ratio 0.8 L 10/30/22 09:50: PT 31.8 H, INR 3.1 10/30/22 09:50: C-React Prot Ext Range 27.20 H 10/30/22 11:23: POC Glucose 230 H 10/30/22 16:21: POC Glucose 263 H 10/30/22 17:38: Urine Color Yellow, Urine Clarity Clear, Urine pH 7.0, Ur Specific [place] 1.010, Urine Protein 30 H, Urine Glucose (UA) Normal, Urine Ketones Negative, Urine Occult Blood Negative, Urine Nitrite Negative, Urine Bilirubin Negative, Urine Urobilinogen 12 H, Ur Leukocyte Esterase 25 H Micro: Microbiology 10/30/22 17:38 Urine, Clean Catch Legionella Antigen - Final 10/30/22 17:38 Urine, Clean Catch Streptococcus pneumoniae Antigen (M - Final 10/29/22 17:30 Mucosa - Nose Respiratory Panel (PCR) - Final 10/29/22 17:30 Nasal Secretion SARS-CoV-2 & FLU Antigen (Rapid) - Final Rhythm Strip Rhythm Strip: Sinus Rhythm Rate: 81 Ectopy: None Radiology Impression Echocardiogram 10/29/22 16:25 Interpretation Summary The estimated ejection fraction is 40-45 %. Normal-appearing bioprosthetic aortic valve In comparison to previous echo in September 22, 2021 Improvement in LV systolic function. Ordering Physician: Ann Marie Cox Referring Physician: Saurabh Hernandez Chi Performed By: Mariam Laboy, HUMACS, RVT Chest X-Ray 10/30/22 05:05 IMPRESSION: 1. Large ventral hernia again seen overlying the right side of the chest. 2. Large right pleural effusion similar to the prior exam. Electronically Signed: Jose Cruz English MD at 7:49 EDT ,
[2022-10-30 18:21] LABS: White Blood Cells 10-25 SEEN /hpf (0-5)
[2022-10-30] MEDS: Atorvastatin Calcium 40 MG Tablet PO (22:19)
[2022-10-31] VITALS (16 sets, daily range): BP systolic 122–149; BP diastolic 69–88; PULSE 74–96; RESP 14–32; TEMP 36.3–37; O2SAT 32–98
[2022-10-31 00:40] LABS: Bedside Glucose 238 mg/dL (74-106)
[2022-10-31] MEDS: Insulin Lispro 100 UNIT/ML INSULN.PEN SC ×4 (06:36→21:23)
[2022-10-31 07:01] LABS: Bedside Glucose 161 mg/dL (74-106)
[2022-10-31] MEDS: Ipratropium/Albuterol Sulfate 3 ML AMPUL.NEB INHALATION ×5 (07:58→23:18)
[2022-10-31 08:04] LABS: Hematocrit 33.9 % (40-54); Hemoglobin 10.3 g/dL (13.0-16.5); Mean Corp Hgb Conc 30.4 g/dL (32-36); Mean Corpuscular Hgb 26.1 pg (27.0-32.0); Mean Platelet Vol. 9.7 fl (6.2-12.0); POSITIVE MORPHOLOGY YES; Platelet Count 163 K/mm3 (150-450); RBC Distribution Width CV 21.7 % (11.6-14.6); RBC Distribution Width SD 69.5 fl (35.1-43.9); Red Blood Count 3.94 M/mm3 (4.6-6.2); White Blood Count 4.8 K/mm3 (4.4-11.0)
[2022-10-31 08:05] LABS: Scan Indicated on CBC? Y/N YES- FLAGS NOTED
[2022-10-31 08:18] LABS: International Normalized Ratio 2.9; Prothrombin Time (Protime)PT. 29.9 SECONDS (11.7-14.9)
[2022-10-31 08:29] LABS: ALB/GLOB Ratio 0.7 RATIO (0.9-2.4); AST(SGOT) 19 U/L (15-37); Alanine Aminotransfer ALT/SGPT 15 U/L (16-61); Albumin, Serum 2.8 g/dL (3.2-5.0); Alkaline Phosphatase 165 U/L (45-117); Anion Gap 1 (5-15); BUN 20 mg/dL (7-18); BUN/Creat Ratio 33.8 RATIO (10-20); Calcium,Total 8.6 mg/dL (8.5-10.1); Chloride 108 mmol/L (98-107); Creatinine, Serum 0.59 mg/dL (0.70-1.30); EST Glomerular Filtration Rate 144 mL/min (>60); Est Glom Filt Rate - Afr Amer 174 mL/min (>60); Estimated Creatinine Clearance 74.25 ml/min; Globulin 3.8 g/dL (2.2-4.2); Glucose 166 mg/dL (74-106); Potassium 3.8 mmol/L (3.5-5.1); Protein, Total 6.6 g/dL (6.4-8.2); Sodium Level 139 mmol/L (136-145)
[2022-10-31 08:31] LABS: Vancomycin, Trough Level 23.7 ug/mL (5.0-15.0)
--- NOTE | 2022-10-31 08:44 | PCM.RX.CS ---
Consult Pharmacy has been consulted to manage selected antiobiotic: Vancomycin Type of Consult: Follow-up Prior Doses of Antibiotics Received/Current Regimen: Medications Vancomycin HCl 2,000 mg/ (Sodium Chloride) 540 mls @ 250 mls/hr IV Q12H ARIA Last Admin: 10/31/22 00:29 Dose: Infused Labs: Sodium 139 mmol/L (136-145) 10/31/22 07:40 Potassium 3.8 mmol/L (3.5-5.1) 10/31/22 07:40 Chloride 108 mmol/L (98-107) H 10/31/22 07:40 Carbon Dioxide 30.0 mmol/L (21.0-32.0) 10/31/22 07:40 Anion Gap 1 (5-15) L 10/31/22 07:40 BUN 20 mg/dL (7-18) H 10/31/22 07:40 Creatinine 0.59 mg/dL (0.70-1.30) L 10/31/22 07:40 Est GFR (MDRD) Af Amer 174 mL/min (>60) 10/31/22 07:40 Est GFR (MDRD) Non-Af 144 mL/min (>60) 10/31/22 07:40 BUN/Creatinine Ratio 33.8 RATIO (10-20) H 10/31/22 07:40 Glucose 166 mg/dL (74-106) H 10/31/22 07:40 Vancomycin Trough 23.7 ug/mL (5.0-15.0) H 10/31/22 07:40 Microbiology: Microbiology 10/30/22 17:38 Urine, Clean Catch Legionella Antigen - Final 10/30/22 17:38 Urine, Clean Catch Streptococcus pneumoniae Antigen (M - Final 10/29/22 17:30 Mucosa - Nose Respiratory Panel (PCR) - Final 10/29/22 17:30 Nasal Secretion SARS-CoV-2 & FLU Antigen (Rapid) - Final Weight used for dosin kg Goal Trough: 15-20 mcg/mL Pharmacy Plan for Drug Dosing: Trough above goal range but was drawn a couple of hours early and SCr improved from admission. Reduce vancomycin to 1500mg, start ~18 hours from previous dose. Trough prior to 4th dose. Pharmacy Service will continue to monitor and adjust dosing as required. Follow-Up Labs: Trough Vancomycin - 11/02 @ 0630
[2022-10-31] MEDS: Metoprolol(XL)Succ 25 MG Tablet 75 MG PO (09:07)
[2022-10-31] MEDS: Insulin Glargine-YFGN 100 UNIT/ML Pen 15 UNIT SC (09:07)
[2022-10-31] MEDS: Furosemide 40 MG/4 ML Vial IV (09:07)
[2022-10-31] MEDS: Lisinopril 5 MG Tablet PO (09:08)
[2022-10-31] MEDS: Ferrous Sulfate 325 MG Tablet PO ×2 (11:03→16:09)
[2022-10-31 11:35] LABS: Bedside Glucose 175 mg/dL (74-106)
--- NOTE | 2022-10-31 15:00 | CPS ---
Patient noted to have Tnuzxy-Ievcdm-dweh breathing while awake and while sleeping. RN aware.
[2022-10-31 16:31] LABS: Bedside Glucose 182 mg/dL (74-106)
--- NOTE | 2022-10-31 17:07 | PN.HOSP_ITS ---
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 (10/29/22) Peripheral vascular disease, unspecified (10/29/22) Chronic obstructive pulmonary disease, unspecified (10/29/22) Acute respiratory failure with hypercapnia (10/29/22) Non-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 (10/29/22) Non-pressure chronic ulcer of other part of left foot with fat layer exposed (10/29/22) Difficulty in walking, not elsewhere classified (10/29/22) Presence of aortocoronary bypass graft (10/29/22) Presence of prosthetic heart valve (10/29/22) Subjective Subjective Patient still quite confused today, answers to questions usually not appropriate in context Objective Data Objective Data Vital Signs: Vital Signs Temp Pulse Resp BP Pulse Ox O2 Del Method O2 Flow Rate 97.7 F L 96 16 130/88 H 32 Room Air 2 10/31/22 15:00 10/31/22 15:10 10/31/22 15:00 10/31/22 15:00 10/31/22 15:10 10/31/22 15:00 10/31/22 12:41 FiO2 25 10/31/22 15:10 Oxygen Flow Rate (L/min) 2 Oxygen Delivery Method Room Air Weight: 107.501 kg Body Mass Index (BMI) 33.0 Intake & Output: Intake and Output for Last 24 Hours 10/29/22 10/30/22 10/31/22 23:59 23:59 23:59 Intake Total 540 / 540 660 / 660 540 / 540 Output Total 2069 / 2069 550 / 550 Balance 540 / 540 -1410 / -1410 -10 / -10 Lab / Micro Data Result Diagrams: 10/31/22 07:40 10/31/22 07:40 Labs: Laboratory Results - last 24 hr 10/30/22 16:21: POC Glucose 263 H 10/30/22 17:38: Urine Color Yellow, Urine Clarity Clear, Urine pH 7.0, Ur Specific [place] 1.010, Urine Protein 30 H, Urine Glucose (UA) Normal, Urine Ketones Negative, Urine Occult Blood Negative, Urine Nitrite Negative, Urine Bilirubin Negative, Urine Urobilinogen 12 H, Ur Leukocyte Esterase 25 H, Urine RBC 0 SEEN, Urine WBC 10-25 SEEN, Ur Squamous Epith Cells 0 SEEN, Urine Bacteria 0 SEEN, Urine Mucus 0 SEEN 10/30/22 22:21: POC Glucose 238 H 10/31/22 06:25: POC Glucose 161 H 10/31/22 07:40: WBC 4.8, RBC 3.94 L, Hgb 10.3 L, Hct 33.9 L, MCV 86.0, MCH 26.1 L, MCHC 30.4 L, RDW Std Deviation 69.5 H, RDW Coeff of Estrada 21.7 H, Plt Count 163, MPV 9.7, Differential Comment 10/31/22 07:40: Sodium 139, Potassium 3.8, Chloride 108 H, Carbon Dioxide 30.0, Anion Gap 1 L, BUN 20 H, Creatinine 0.59 L, Estim Creat Clear Calc 74.25, Est GFR (MDRD) Af Amer 174, Est GFR (MDRD) Non-Af 144, BUN/Creatinine Ratio 33.8 H, Glucose 166 H, Calcium 8.6, Total Bilirubin 1.20 H, AST 19, ALT 15 L, Alkaline Phosphatase 165 H, C-React Prot Ext Range 22.20 H, Total Protein 6.6, Albumin 2.8 L, Globulin 3.8, Albumin/Globulin Ratio 0.7 L 10/31/22 07:40: Vancomycin Trough 23.7 H 10/31/22 07:40: PT 29.9 H, INR 2.9 10/31/22 11:02: POC Glucose 175 H 10/31/22 16:08: POC Glucose 182 H Micro: Microbiology 10/30/22 17:38 Urine, Clean Catch Legionella Antigen - Final 10/30/22 17:38 Urine, Clean Catch Streptococcus pneumoniae Antigen (M - Fin al 10/29/22 17:30 Mucosa - Nose Respiratory Panel (PCR) - Final 10/29/22 17:30 Nasal Secretion SARS-CoV-2 & FLU Antigen (Rapid) - Final Rhythm Strip Rhythm Strip: Sinus Rhythm Rate: 81 Ectopy: None Physical Exam Narrative General: Alert, slightly more confused today HEENT: Atraumatic, normocephalic Eyes: Anicteric, normal conjunctiva, extraocular movements grossly intact Neck: Supple Respiratory: Diminished at the bases right greater than left, normal respiratory effort Cardiovascular: Regular rate and rhythm GI: Soft, nontender, nondistended, ventral hernia noted Extremities: No edema Musculoskeletal: Moving all extremities Neuro: No overt focal neurological deficits Skin: Foot wounds dressed Psych: Cooperative Assessment & Plan Assessment/Plan (1) Acute hypercapnic respiratory failure: (2) Encephalopathy acute: (3) COPD (chronic obstructive pulmonary disease): (4) Essential (primary) hypertension: (5) H/O coronary artery bypass surgery: (6) History of mechanical aortic valve replacement: (7) Chronic combined systolic and diastolic CHF (congestive heart failure): (8) Secondary pulmonary arterial hypertension: (9) Peripheral vascular occlusive disease: (10) Type 2 diabetes mellitus: (11) Atherosclerosis of lower extremity with ulceration: PLAN: Plan #Shortness of breath/Acute hypercapnia * -AECHF vs AECOPD vs R pleural effusion, less likely PNA given wbc WNL and no left shift * -CXR remonstrated right pleural effusion with increased interstitial lung markings * -ABG with pH of 7.34 with a PO2 of 95 and a PCO2 of 58.3 patient placed on BiPAP * -BNP 512, has had higher in the past but does have persistent R pleural effusion and sounds more congested * -Given 40IV lasix and placed on bipap and responded to this * -40iv lasix qday * -Weights, I's and O's, incentive spirometry * -Did have some wheezing, nebs started * -COVID, respiratory panel * -Not hypoxic, improved after dose of lasix and bipap, will repeat CXR in AM, if any further clarification needed can obtain CT scan -10/30: More awake and alert today though not oriented, did have what sounded to be a wet cough. Respiratory panel and COVID-negative, will order sputum culture and urine antigens due to productive cough though still suspect fluid overload as primary culprit, continue Lasix -10/31: Patient was on 4 L this morning however after Lasix had slowly been weaned off throughout the day. Continue diuresis. EF 40 to 45% which report identifies as slightly improved LV systolic dysfunction from September 22, 2021 #R foot wound w/ Wound cx positive for MRSA and kocuria kristinae * -D/c augmentin, Start on vancomycin given sensitivities with MRSA, kocuria may be contaminant * -Obtain cultures * -Repeat procal, esr, crp, order LA * -Wound care c/s * -Had foot xray 10/19 w/ 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 No evidence of acute fracture. -10/30: Has second toe on his right foot open with some drainage, middle toe on left foot also open, on vancomycin. Blood cx pending. Given that R is open and draining and review of records scanned 10/20/22, page 24 was wound evaluation which reported concern for osteomyelitis and recommended hospitalization and possible amputation, as well as wound cultures podiatry has been consulted for further recommendations and management. ESR went down slightly over the course of 10 days CRP went up slightly, awaiting a.m. lab values -10/31: Culture still pending, remains on Vanco. Evaluated by podiatry and underwent bedside debridement. There is concern for potential osteo and he would likely need amputation in the next several days. We will also consult infectious disease #Possible acute exacerbation of chronic systolic and diastolic heart failure * -As above * -Last echocardiogram 09/22/2021 showed EF of 30% with stage III diastolic dysfunction * -Repeat echo #hx R pleural effusion * -Low-dose lung CT 09/29/2022 with large right pleural effusion and associated atelectasis as well as a midline ventral hernia containing fat and bowel loops with diffuse induration of subcutaneous fat that had suggested anasarca. * -CXR difficult to evaluate effusion well d/t overlying ventral hernia * -Repeat CXR in AM, low threshold for CT for further characterize ?10/30: Continue Lasix, respiratory status improving. Chest x-ray roughly unchanged based on read but on review does appear to have improved aeration. Continue current management -10/31: Continue IV diuresis #Hx of underlying lung dz * -Had presumed to have COPD but recent PFTs 10/27 actually with moderately severe restrictive ventilatory defect with a symmetric reduction diffusion capacity and possible some stigmata of concomitant small airway disease which is less consistent with COPD * -Will need to continue following with pulm #Encephalopathy, likely metabolic * -Possibly 2/2 hypercapnea * -Started on bipap, improved hypercapnea * -Bipap qhs and prn * -Recent infxn of foot and hx of UTIs * -Cultures sent * -ESR/CRP * -Procal -10/30: Improving, continue to address underlying etiology -10/31: Waxing and waning, will schedule melatonin nightly, can consider small dose of Risperdal 0.25 mg twice daily if unsuccessful #Hyperkalemia * -Unclear etiology- resolved after lasix and recheck * -Receiving Lasix * -EKG heart rate 81 bpm and normal sinus rhythm with nonspecific T wave changes but no peaked T waves * -Hold home potassium supplementation #?History of DVT * -Previous documentation of DVT in old note but not documented elsewhere, will try to clarify * -Chronically on Coumadin #Coronary disease status post CABG 04/2020/mechanical [facility] AVR/PAD s/p fempop bypass * -Cont asa, statin * -Followed by vascular on outpatient basis, has had previous intervention for breast peripheral artery disease * -INR 3.3, continue coumadin, daily INRs * -If subtherapeutic will need bridged with heparin given drink box mechanic valve -10/30: Awaiting a.m. INR -10/31: INR 2.9. Has mechanical valve, will need daily INRs and close monitoring #Type 2 diabetes mellitus * -Glucose checks and sliding scale insulin * -Long-acting insulin #DVT ppx: Therapeutic on Coumadin Ann Marie Cox MD Time spent in the patient's overall evaluation,decision-making process, review of diagnostic data, adjustment of management, discussion with other providers, nursing nursing and ancillary staff involved in patient's care documentation, 35 minutes Charges/Coding Visit Charges Inpatient E&M: 47694 Subs Hosp L2
[2022-10-31] MEDS: 0.9% Saline Lock 10 ML Syringe IV (18:21)
[2022-10-31] MEDS: MELATONIN 3 MG TABLET PO (21:22)
[2022-10-31] MEDS: Atorvastatin Calcium 40 MG Tablet PO (21:23)
[2022-11-01] VITALS (11 sets, daily range): BP systolic 127–151; BP diastolic 68–80; PULSE 73–82; RESP 18–20; TEMP 36.4–37.1; O2SAT 86–100; BMI 32.9
[2022-11-01 00:41] LABS: Bedside Glucose 150 mg/dL (74-106)
[2022-11-01 06:04] LABS: Hematocrit 34.1 % (40-54); Hemoglobin 10.4 g/dL (13.0-16.5); Mean Corp Hgb Conc 30.5 g/dL (32-36); Mean Corpuscular Hgb 26.1 pg (27.0-32.0); Mean Corpuscular Volume 85.7 fL (80-94); Mean Platelet Vol. 9.7 fl (6.2-12.0); POSITIVE MORPHOLOGY YES; Platelet Count 163 K/mm3 (150-450); RBC Distribution Width CV 21.7 % (11.6-14.6); RBC Distribution Width SD 68.8 fl (35.1-43.9); Red Blood Count 3.98 M/mm3 (4.6-6.2); White Blood Count 4.5 K/mm3 (4.4-11.0)
[2022-11-01 06:05] LABS: Scan Indicated on CBC? Y/N YES- FLAGS NOTED
[2022-11-01 06:18] LABS: International Normalized Ratio 2.9; Prothrombin Time (Protime)PT. 30.4 SECONDS (11.7-14.9)
[2022-11-01 06:54] LABS: ALB/GLOB Ratio 0.8 RATIO (0.9-2.4); AST(SGOT) 24 U/L (15-37); Alanine Aminotransfer ALT/SGPT 22 U/L (16-61); Albumin, Serum 2.9 g/dL (3.2-5.0); Alkaline Phosphatase 169 U/L (45-117); Anion Gap 4 (5-15); BUN 15 mg/dL (7-18); BUN/Creat Ratio 33.8 RATIO (10-20); Calcium,Total 8.5 mg/dL (8.5-10.1); Chloride 107 mmol/L (98-107); Creatinine, Serum 0.44 mg/dL (0.70-1.30); EST Glomerular Filtration Rate 201 mL/min (>60); Est Glom Filt Rate - Afr Amer 243 mL/min (>60); Estimated Creatinine Clearance 74.25 ml/min; Globulin 3.5 g/dL (2.2-4.2); Glucose 122 mg/dL (74-106); Potassium 3.6 mmol/L (3.5-5.1); Protein, Total 6.4 g/dL (6.4-8.2); Sodium Level 140 mmol/L (136-145)
[2022-11-01] MEDS: Ipratropium/Albuterol Sulfate 3 ML AMPUL.NEB INHALATION ×5 (07:00→23:11)
[2022-11-01 07:05] LABS: Bedside Glucose 105 mg/dL (74-106)
[2022-11-01] MEDS: Metoprolol(XL)Succ 25 MG Tablet 75 MG PO (09:03)
[2022-11-01] MEDS: Lisinopril 5 MG Tablet PO (09:03)
[2022-11-01] MEDS: Furosemide 40 MG/4 ML Vial IV (09:03)
[2022-11-01] MEDS: Insulin Glargine-YFGN 100 UNIT/ML Pen 15 UNIT SC (09:03)
--- NOTE | 2022-11-01 09:45 | PN.HOSP_ITS ---
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 (10/29/22) Peripheral vascular disease, unspecified (10/29/22) Chronic obstructive pulmonary disease, unspecified (10/29/22) Acute respiratory failure with hypercapnia (10/29/22) Non-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 (10/29/22) Non-pressure chronic ulcer of other part of left foot with fat layer exposed (10/29/22) Difficulty in walking, not elsewhere classified (10/29/22) Presence of aortocoronary bypass graft (10/29/22) Presence of prosthetic heart valve (10/29/22) Objective Data Objective Data Vital Signs: Vital Signs Temp Pulse Resp BP Pulse Ox O2 Del Method O2 Flow Rate 97.6 F L 78 18 137/73 H 98 Room Air 2 11/01/22 09:00 11/01/22 09:03 11/01/22 09:00 11/01/22 09:03 11/01/22 09:00 11/01/22 09:00 10/31/22 12:41 FiO2 25 10/31/22 23:18 Oxygen Flow Rate (L/min) 2 Oxygen Delivery Method Room Air Weight: 236 lb 5.369 oz Body Mass Index (BMI) 32.9 Intake & Output: Intake and Output for Last 24 Hours 10/30/22 10/31/22 11/01/22 23:59 23:59 23:59 Intake Total 660 / 660 1070 / 1070 530 / 530 Output Total 2070 / 2070 975 / 975 250 / 250 Balance -1410 / -1410 95 / 95 280 / 280 Lab / Micro Data Result Diagrams: 11/01/22 05:25 11/01/22 05:25 Labs: Laboratory Results - last 24 hr 10/31/22 11:02: POC Glucose 175 H 10/31/22 16:08: POC Glucose 182 H 10/31/22 21:25: POC Glucose 150 H 11/01/22 05:25: WBC 4.5, RBC 3.98 L, Hgb 10.4 L, Hct 34.1 L, MCV 85.7, MCH 26.1 L, MCHC 30.5 L, RDW Std Deviation 68.8 H, RDW Coeff of Estrada 21.7 H, Plt Count 163, MPV 9.7 11/01/22 05:25: Sodium 140, Potassium 3.6, Chloride 107, Carbon Dioxide 29.0, Anion Gap 4 L, BUN 15, Creatinine 0.44 L, Estim Creat Clear Calc 74.25, Est GFR (MDRD) Af Amer 243, Est GFR (MDRD) Non-Af 201, BUN/Creatinine Ratio 33.8 H, Glucose 122 H, Calcium 8.5, Total Bilirubin 1.30 H, AST 24, ALT 22, Alkaline Phosphatase 169 H, Total Protein 6.4, Albumin 2.9 L, Globulin 3.5, Albumin/Globulin Ratio 0.8 L 11/01/22 05:25: PT 30.4 H, INR 2.9 11/01/22 06:26: POC Glucose 105 Micro: Microbiology 10/30/22 17:38 Urine, Random Urine Culture - Preliminary GNR Poss Pseudomonas sp 10/29/22 19:20 Blood Culture (Wb) - Anticubital Right Blood Culture - Preliminary No growth in 48 hours. 10/29/22 19:29 Blood Culture (Wb) - Right Hand Blood Culture - Preliminary No growth in 48 hours. 10/30/22 17:38 Urine, Clean Catch Legionella Antigen - Final 10/30/22 17:38 Urine, Clean Catch Streptococcus pneumoniae Antigen (M - Final 10/29/22 17:30 Mucosa - Nose Respiratory Panel (PCR) - Final 10/29/22 17:30 Nasal Secretion SARS-CoV-2 & FLU Antigen (Rapid) - Final Rhythm Strip Rhythm Strip: Sinus Rhythm Rate: 81 Ectopy: None Physical Exam Narrative Seen and examined. Patient is short of breath sitting upright. Bilateral feet ulcer. Physical exam General: Alert, Oriented x3, Cooperative, obesity grade 233.0 kg/m?. HEENT: Atraumatic, PERRLA, EOMI, Normocephalic Oral: Oral mucosa moist. No Gingival or Mucosal Lesions/ Ulcerations Neck: Supple, No JVD, Negative Carotid Bruits Chest wall/lungs: Air entry diminished in bilateral lung bases. No crepitation/rhonchi. Patient has mid chest to epigastric ventral hernia. Seems portion of heart and bowel with bowel sounds. Chronic. Cardiovascular: Regular rate, Regular Rhythm, Normal S1, Normal S2, mechanical aortic valve sound. Abdomen: Bowel Sounds Present, Soft, Non Tender, with epigastric hernia. Does not seem obstructed. : No renal angle tenderness. No suprapubic tenderness. Extremities: 2+ bilateral pitting edema, Capillary Refill Less than 3 Seconds Skin: Bilateral feet ulcer. Musculoskeletal: No Tenderness to Palpation of Joints or Extremities. ROM severely limited. Decreased mobility. Neurological: Cranial nerves II-XII grossly intact, DTR 2+/4, muscle strength 4+/5 at knees and hip joints. Psych/Mental Status: Flat affect. Assessment & Plan Assessment/Plan (1) Acute hypercapnic respiratory failure: (2) Encephalopathy acute: (3) Chronic combined systolic and diastolic CHF (congestive heart failure): (4) Type 2 diabetes mellitus: (5) Atherosclerosis of lower extremity with ulceration: PLAN: Plan 1. Acute hypercapnic respiratory failure. * -AECHF vs AECOPD vs R pleural effusion, less likely PNA given wbc WNL and no left shift * -CXR remonstrated right pleural effusion with increased interstitial lung markings * -ABG with pH of 7.34 with a PO2 of 95 and a PCO2 of 58.3 patient placed on BiPAP * -BNP 512, has had higher in the past but does have persistent R pleural effusion and sounds more congested * -40iv lasix qday * Heart failure core measures including intake and output, fluid restriction less than 1500 mL, daily weight monitoring, kidney and electrolytes monitoring * On BiPAP. * -COVID, respiratory panel and urinary antigens are negative. 11/01: . Continue diuresis. EF 40 to 45% which report identifies as slightly improved LV systolic dysfunction from September 22, 2021. Repeat chest x-ray shows large right pleural effusion with ventral hernia #R foot wound w/ Wound cx positive for MRSA and kocuria kristinae -11/01: Patient was evaluated by settlement worker and had bedside debridement. Concern of potential osteomyelitis and if that may be will need amputation. ESR mildly elevated Today. Patient on IV vancomycin. Prelim urine culture shows GNR possible Pseudomonas. Blood culture negative for more than 48 hours. Urine culture shows GNR possible Pseudomonas [id number] colonies. It is in nonpathologic range and therefore will leave on ID. #Possible acute exacerbation of chronic systolic and diastolic heart failure * -As above * -Last echocardiogram 09/22/2021 showed EF of 30% with stage III diastolic dysfunction * -Repeat echo #hx R pleural effusion * -Low-dose lung CT 09/29/2022 with large right pleural effusion and associated atelectasis as well as a midline ventral hernia containing fat and bowel loops with diffuse induration of subcutaneous fat that had suggested anasarca. * Repeat chest x-ray unchanged as mentioned above #Hx of underlying lung dz * -Had presumed to have COPD but recent PFTs 10/27 actually with moderately severe restrictive ventilatory defect with a symmetric reduction diffusion capacity and possible some stigmata of concomitant small airway disease which is less consistent with COPD * -Will need to continue following with pulm #Acute encephalopathy, likely metabolic encephalopathy from hypercapnia. -11/01: Waxing and waning course. But today patient seems in lucid and normal behavior.on schedule melatonin nightly, small dose of Risperdal 0.25 mg twice daily if unsuccessful #Hyperkalemia * -Unclear etiology- resolved after lasix and recheck * -Receiving Lasix * -EKG heart rate 81 bpm and normal sinus rhythm with nonspecific T wave changes but no peaked T waves * -Hold home potassium supplementation #?History of DVT * -Previous documentation of DVT in old note but not documented elsewhere, will try to clarify * -Chronically on Coumadin #Coronary disease status post CABG 04/2020/[address] [facility] AVR/PAD s/p fempop bypass * -Cont asa, statin * -Followed by vascular on outpatient basis, has had previous intervention for breast peripheral artery disease * -INR 3.3, continue coumadin, daily INRs * -If subtherapeutic will need bridged with heparin given a&p mechanic valve -10/31: INR 2.9. Has mechanical valve, will need daily INRs and close monitoring #Type 2 diabetes mellitus * -Glucose checks and sliding scale insulin * -Long-acting insulin #DVT ppx: Therapeutic on Coumadin Clinical Impression(s) from Imaging Studies Chest X-Ray 10/29/22 15:00 IMPRESSION: There is a right pleural effusion. Epigastric ventral hernia visualized extending along the right para midline. The hernia likely contains colon. Electronically Signed: Carson Morris MD at 15:30 EDT , Echocardiogram 10/29/22 16:25 Interpretation Summary The estimated ejection fraction is 40-45 %. Normal-appearing bioprosthetic aortic valve In comparison to previous echo in September 22, 2021 Improvement in LV systolic function. Ordering Physician: Ann Marie Cox Referring Physician: Saurabh Hernandez Chi Performed By: Mariam Laboy, JOCELYN, RVT Chest X-Ray 10/30/22 05:05 IMPRESSION: 1. Large ventral hernia again seen overlying the right side of the chest. 2. Large right pleural effusion similar to the prior exam. Electronically Signed: Jose Cruz English MD at 7:49 EDT , Charges/Coding Visit Charges Inpatient E&M: 66731 Subs Hosp L2
--- NOTE | 2022-11-01 10:22 | CASEMGMT ---
Updates sent to [facility]
[2022-11-01] MEDS: Ferrous Sulfate 325 MG Tablet PO ×2 (11:40→17:05)
[2022-11-01 12:01] LABS: Bedside Glucose 132 mg/dL (74-106)
--- NOTE | 2022-11-01 14:45 | CON.PCM.ID_ITS ---
Assessment & Plan Assessment/Plan (1) Non-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: PLAN: On vanc. Recent wound cx with MRSA and kocuria. Amputation planned. Podiatry following. Ucx with only small growth pseudomonas, no urinary complaints. Will follow, thank you HPI Consult Data Date of Consult: 11/01/22 HPI Narrative Reason for Consultation: osteo HPI Narrative: RAPHAEL HADDAD, is a 71 M with h/o htn, CAD[facility], presented 10/29 from [facility] with 2-3 days confusion, cough, dyspnea. Had been put on augmentin recently for wound infections. Admitted on vanc. Seen by podiatry, dx with R 2nd toe exposed bone and osteo. Amputation planned. Overall feeling better, no fever, dyspnea much better. Full ROS performed and neg except as noted above. [facility] Medical History (Updated 10/30/22 @ 18:[address] Jose Cruz Johnson, DPM) Adult failure to thrive Atherosclerosis of coronary artery without angina pectoris Bleeding disorder CHF (congestive heart failure) Chronic combined systolic and diastolic CHF (congestive heart failure) Congestive heart failure COPD (chronic obstructive pulmonary disease) Diabetic foot infection DVT (deep venous thrombosis) Elevated troponin Gangrene of toe GERD (gastroesophageal reflux disease) History of non-ST elevation myocardial infarction (NSTEMI) (04/23/20) Hyperlipidemia Ischemic cardiomyopathy Kidney stones care home current use of 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 Lumbar spinal stenosis MSSA (methicillin susceptible Staphylococcus aureus) infection Nicotine dependence Non-healing surgical wound (05/01/20) Nonrheumatic aortic (valve) stenosis 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 Obstructive sleep apnea Osteomyelitis Peripheral vascular occlusive disease Pleural effusion, right Scabies infestation Secondary pulmonary arterial hypertension Smoker Sternal wound infection Type 2 diabetes mellitus 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 foot with fat layer exposed Ulcer of right foot with necrosis of bone Home Medications metformin 500 mg tablet 500 mg PO BIDCM diabetes 05/31/20 [History Last Taken 09/21/21] atorvastatin 40 mg tablet 40 mg PO QHS cholesterol 11/12/20 [History Last Taken 09/20/21] potassium chloride 20 mEq tablet,extended release(part/cryst) 20 meq PO DAILY suipplement 12/23/20 [History Last Taken 12/22/20] linagliptin 5 mg tablet (Tradjenta) 5 mg PO DAILY DM 10/08/21 [History Last Taken Unknown] lisinopril 5 mg tablet 5 mg PO DAILY HTN 10/08/21 [History Last Taken Unknown] metoprolol succinate 25 mg tablet,extended release 24 hr 75 mg PO DAILY HTN 10/08/21 [History Last Taken Unknown] doxepin 50 mg capsule 50 mg PO QHS Check with primary doctor 02/11/22 [History Last Taken Unknown] insulin aspart U-100 100 unit/mL (3 mL) subcutaneous pen (Novolog FlexPen U-100 Insulin aspart) 10 unit (0.1 mL) subcut BIDCM diabetes #3 mL 02/12/22 [Rx Last Taken Unknown] insulin glargine 100 unit/mL (3 mL) subcutaneous pen (Lantus Solostar U-100 Insulin) 25 unit (0.25 mL) subcut DAILY DM #3 mL 02/12/22 [Rx Last Taken Unknow n] ascorbic acid (vitamin C) 500 mg capsule 500 mg PO BID 10/14/22 [History Last Taken Unknown] furosemide 20 mg tablet 40 mg PO DAILY diuretic 10/14/22 [History Last Taken Unknown] gabapentin 100 mg capsule 200 mg PO BID pain 10/14/22 [History Last Taken Unknown] warfarin 6 mg tablet (Jantoven) 4 mg PO DAILY Check with primary doctor 10/14/22 [History Last Taken Unknown] amoxicillin 875 mg-potassium clavulanate 125 mg tablet 1 tab PO BID #20 tabs 10/19/22 [Rx Last Taken Unknown] cholecalciferol (vitamin D3) 50 mcg (2,000 unit) capsule (Vitamin D3) 50 mcg PO DAILY 10/29/22 [History Last Taken Unknown] ferrous sulfate 325 mg (65 mg iron) tablet 325 mg PO DAILY 10/29/22 [History Last Taken Unknown] ipratropium 0.5 mg-albuterol 3 mg (2.5 mg base)/3 mL nebulization soln 3 ml inhalation Q4H PRN SOB 10/29/22 [History Last Taken Unknown] Allergy/AdvReac Type Severity Reaction Status Date / Time No Known Allergies Allergy Verified 10/19/22 13:51 Family History Mother Diabetes Heart disease Father Diabetes Surgical History H/O coronary artery bypass surgery (05/01/20) History of angioplasty of peripheral vessel (01/02/10) History of femoropopliteal bypass (2008) History of incision and drainage (09/22/20) History of left heart catheterization (04/23/20) History of lumbar laminectomy History of mechanical aortic valve replacement Social History household members: significant other Smoking Status: Current every day smoker tobacco type: cigarettes alcohol intake: never substance use type: does not use caffeine: No Physical Exam Const alert and no apparent distress General Appearance: cooperative HEENT normocephalic and head/scalp atraumatic Eyes PERRL and EOMs intact bilaterally Neck supple and No nodes Resp normal air movement and clear to auscultation bilaterally Cardio regular rate and regular rhythm GI soft to palpation, non-tender and non-distended Extremity General Extremity: Negative for edema Skin Skin Narrative: Feet wrapped Neuro CN's II-XII intact bilaterally Lab / Micro Data Attestation: I reviewed the patient's lab results. Result Diagrams: 11/01/22 05:25 11/01/22 05:25 Labs: Laboratory Results - last 24 hr 10/31/22 16:08: POC Glucose 182 H 10/31/22 21:25: POC Glucose 150 H 11/01/22 05:25: WBC 4.5, RBC 3.98 L, Hgb 10.4 L, Hct 34.1 L, MCV 85.7, MCH 26.1 L, MCHC 30.5 L, RDW Std Deviation 68.8 H, RDW Coeff of Estrada 21.7 H, Plt Count 163, MPV 9.7 11/01/22 05:25: Sodium 140, Potassium 3.6, Chloride 107, Carbon Dioxide 29.0, Anion Gap 4 L, BUN 15, Creatinine 0.44 L, Estim Creat Clear Calc 74.25, Est GFR (MDRD) Af Amer 243, Est GFR (MDRD) Non-Af 201, BUN/Creatinine Ratio 33.8 H, Glucose 122 H, Calcium 8.5, Total Bilirubin 1.30 H, AST 24, ALT 22, Alkaline P hosphatase 169 H, Total Protein 6.4, Albumin 2.9 L, Globulin 3.5, Albumin/Globulin Ratio 0.8 L 11/01/22 05:25: PT 30.4 H, INR 2.9 11/01/22 06:26: POC Glucose 105 11/01/22 11:39: POC Glucose 132 H Micro: Microbiology 10/30/22 17:38 Urine, Random Urine Culture - Preliminary GNR Poss Pseudomonas sp 10/29/22 19:20 Blood Culture (Wb) - Anticubital Right Blood Culture - Preliminary No growth in 48 hours. 10/29/22 19:29 Blood Culture (Wb) - Right Hand Blood Culture - Preliminary No growth in 48 hours. Rhythm Strip Rhythm Strip: Sinus Rhythm Rate: 81 Ectopy: None
--- NOTE | 2022-11-01 15:50 | WOUNDNOTE ---
wound photo: right 2nd toe
--- NOTE | 2022-11-01 15:51 | WOUNDNOTE ---
wound photo: right 2nd toe
--- NOTE | 2022-11-01 15:51 | WOUNDNOTE ---
wound photo: left 2nd toe
--- NOTE | 2022-11-01 15:52 | PCM.PROGNOTE ---
Subjective Subjective Patient was seen today for follow up right 2nd toe. Patient resting in bed. No complaints of pain, fever, chills, nausea or vomiting. Objective Data Objective Data Vital Signs: Vital Signs Temp Pulse Resp BP Pulse Ox O2 Del Method O2 Flow Rate 98.0 F 82 18 151/80 H 100 Room Air 2 11/01/22 15:00 11/01/22 15:00 11/01/22 15:00 11/01/22 15:00 11/01/22 15:00 11/01/22 15:00 11/01/22 15:43 FiO2 25 10/31/22 23:18 Oxygen Flow Rate (L/min) 2 Oxygen Delivery Method Room Air Weight: 107.2 kg Body Mass Index (BMI) 32.9 Intake & Output: Intake and Output for Last 24 Hours 10/30/22 10/31/22 11/01/22 23:59 23:59 23:59 Intake Total 660 / 660 1070 / 1070 530 / 530 Output Total 2070 / 2070 975 / 975 400 / 400 Balance -1410 / -1410 95 / 95 130 / 130 Lab / Micro Data Result Diagrams: 11/01/22 05:25 11/01/22 05:25 Labs: Laboratory Results - last 24 hr 10/31/22 16:08: POC Glucose 182 H 10/31/22 21:25: POC Glucose 150 H 11/01/22 05:25: WBC 4.5, RBC 3.98 L, Hgb 10.4 L, Hct 34.1 L, MCV 85.7, MCH 26.1 L, MCHC 30.5 L, RDW Std Deviation 68.8 H, RDW Coeff of Estrada 21.7 H, Plt Count 163, MPV 9.7 11/01/22 05:25: Sodium 140, Potassium 3.6, Chloride 107, Carbon Dioxide 29.0, Anion Gap 4 L, BUN 15, Creatinine 0.44 L, Estim Creat Clear Calc 74.25, Est GFR (MDRD) Af Amer 243, Est GFR (MDRD) Non-Af 201, BUN/Creatinine Ratio 33.8 H, Glucose 122 H, Calcium 8.5, Total Bilirubin 1.30 H, AST 24, ALT 22, Alkaline Phosphatase 169 H, Total Protein 6.4, Albumin 2.9 L, Globulin 3.5, Albumin/Globulin Ratio 0.8 L 11/01/22 05:25: PT 30.4 H, INR 2.9 11/01/22 06:26: POC Glucose 105 11/01/22 11:39: POC Glucose 132 H Micro: Microbiology 10/30/22 17:38 Urine, Random Urine Culture - Preliminary GNR Poss Pseudomonas sp 10/29/22 19:20 Blood Culture (Wb) - Anticubital Right Blood Culture - Preliminary No growth in 48 hours. 10/29/22 19:29 Blood Culture (Wb) - Right Hand Blood Culture - Preliminary No growth in 48 hours. 10/30/22 17:38 Urine, Clean Catch Legionella Antigen - Final 10/30/22 17:38 Urine, Clean Catch Streptococcus pneumoniae Antigen (M - Final 10/29/22 17:30 Mucosa - Nose Respiratory Panel (PCR) - Final 10/29/22 17:30 Nasal Secretion SARS-CoV-2 & FLU Antigen (Rapid) - Final Rhythm Strip Rhythm Strip: Sinus Rhythm Rate: 81 Ectopy: None Physical Exam Narrative Right 2nd toe - ulceration down to bone PIPJ, swelling and bulbous in appearance - this appears chronic in nature, no acute ischemia noted to foot, there is chronic 2nd toe hammer toe deformity, healed 1st toe/ray amputation. No new ulcers or areas of breakdown right foot. Const alert and no apparent distress Assessment & Plan Assessment/Plan (1) Non-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: (2) Type 2 diabetes mellitus: (3) Peripheral vascular occlusive disease: (4) Osteomyelitis of toe of right foot: PLAN: Plan Evaluation performed. Reviewed diagnotic data. Clinical there is osteomyelitis right 2nd toe. Reviewed cultures of ulceration - MRSA and Kocuria Kristinae - patient is on antibiotic therapy per ID service at this time. Discussed further options with patient - nonsurgical vs surgical - he would like to proceed with amputation of the right 2nd toe. This was discussed with this. However he does have significant PAD noted - there is concern about poor healing potential. Vascular surgery will be consulted prior to toe amputation as toe is stable/chronic at this time. Continue with local wound care. Discussed with Dr. Avila. Podiatry will continue to follow.
[2022-11-01] MEDS: Insulin Lispro 100 UNIT/ML INSULN.PEN SC ×2 (17:05→21:13)
[2022-11-01 17:50] LABS: Bedside Glucose 177 mg/dL (74-106)
[2022-11-01] MEDS: MELATONIN 3 MG TABLET PO (21:13)
[2022-11-01] MEDS: Atorvastatin Calcium 40 MG Tablet PO (21:13)
[2022-11-02] VITALS (12 sets, daily range): BP systolic 123–154; BP diastolic 72–88; PULSE 71–90; RESP 17–28; TEMP 36.7–37.3; O2SAT 94–100; BMI 32.7
[2022-11-02 01:25] LABS: Bedside Glucose 216 mg/dL (74-106)
[2022-11-02 06:21] LABS: Hemoglobin 10.9 g/dL (13.0-16.5); Mean Corp Hgb Conc 30.3 g/dL (32-36); Mean Corpuscular Hgb 26.1 pg (27.0-32.0); Mean Corpuscular Volume 86.3 fL (80-94); Mean Platelet Vol. 10.1 fl (6.2-12.0); POSITIVE MORPHOLOGY YES; Platelet Count 170 K/mm3 (150-450); RBC Distribution Width CV 21.6 % (11.6-14.6); RBC Distribution Width SD 68.2 fl (35.1-43.9); Red Blood Count 4.17 M/mm3 (4.6-6.2); White Blood Count 4.3 K/mm3 (4.4-11.0)
[2022-11-02 06:26] LABS: Scan Indicated on CBC? Y/N YES- FLAGS NOTED
[2022-11-02] MEDS: Insulin Lispro 100 UNIT/ML INSULN.PEN SC ×4 (06:35→20:51)
[2022-11-02 06:40] LABS: Prothrombin Time (Protime)PT. 30.5 SECONDS (11.7-14.9)
[2022-11-02] MEDS: Ipratropium/Albuterol Sulfate 3 ML AMPUL.NEB INHALATION ×5 (06:50→23:43)
[2022-11-02 07:01] LABS: Bedside Glucose 167 mg/dL (74-106)
[2022-11-02 07:01] LABS: Vancomycin, Trough Level 25.1 ug/mL (5.0-15.0)
[2022-11-02 07:02] LABS: ALB/GLOB Ratio 0.8 RATIO (0.9-2.4); AST(SGOT) 22 U/L (15-37); Alanine Aminotransfer ALT/SGPT 19 U/L (16-61); Albumin, Serum 2.8 g/dL (3.2-5.0); Alkaline Phosphatase 181 U/L (45-117); Anion Gap 0 (5-15); BUN 17 mg/dL (7-18); BUN/Creat Ratio 27.6 RATIO (10-20); Calcium,Total 8.2 mg/dL (8.5-10.1); Chloride 109 mmol/L (98-107); Creatinine, Serum 0.62 mg/dL (0.70-1.30); EST Glomerular Filtration Rate 138 mL/min (>60); Est Glom Filt Rate - Afr Amer 167 mL/min (>60); Estimated Creatinine Clearance 74.25 ml/min; Globulin 3.6 g/dL (2.2-4.2); Glucose 158 mg/dL (74-106); Potassium 3.7 mmol/L (3.5-5.1); Protein, Total 6.4 g/dL (6.4-8.2); Sodium Level 139 mmol/L (136-145)
[2022-11-02] MEDS: 0.9% Saline Lock 10 ML Syringe IV ×2 (07:30→09:12)
--- NOTE | 2022-11-02 07:35 | PCM.RX.CS ---
Consult Pharmacy has been consulted to manage selected antiobiotic: Vancomycin Type of Consult: Follow-up Prior Doses of Antibiotics Received/Current Regimen: current dose is vanc 1500mg IV q12h Labs: Sodium 139 mmol/L (136-145) 11/02/22 06:12 Potassium 3.7 mmol/L (3.5-5.1) 11/02/22 06:12 Chloride 109 mmol/L (98-107) H 11/02/22 06:12 Carbon Dioxide 30.0 mmol/L (21.0-32.0) 11/02/22 06:12 Anion Gap 0 (5-15) L 11/02/22 06:12 BUN 17 mg/dL (7-18) 11/02/22 06:12 Creatinine 0.62 mg/dL (0.70-1.30) L 11/02/22 06:12 Est GFR (MDRD) Af Amer 167 mL/min (>60) 11/02/22 06:12 Est GFR (MDRD) Non-Af 138 mL/min (>60) 11/02/22 06:12 BUN/Creatinine Ratio 27.6 RATIO (10-20) H 11/02/22 06:12 Glucose 158 mg/dL (74-106) H 11/02/22 06:12 Vancomycin Trough 25.1 ug/mL (5.0-15.0) H 11/02/22 06:12 Microbiology: Microbiology 10/30/22 17:38 Urine, Random Urine Culture - Final Pseudomonas aeruginosa 10/29/22 19:20 Blood Culture (Wb) - Anticubital Right Blood Culture - Preliminary No growth in 48 hours. 10/29/22 19:29 Blood Culture (Wb) - Right Hand Blood Culture - Preliminary No growth in 48 hours. 10/30/22 17:38 Urine, Clean Catch Legionella Antigen - Final 10/30/22 17:38 Urine, Clean Catch Streptococcus pneumoniae Antigen (M - Final 10/29/22 17:30 Mucosa - Nose Respiratory Panel (PCR) - Final 10/29/22 17:30 Nasal Secretion SARS-CoV-2 & FLU Antigen (Rapid) - Final Weight used for dosin.5 kg Estimated Creatinine Clearance: >100ml/min Goal Trough: 15-20 mcg/mL Pharmacy Plan for Drug Dosing: The vanc trough drawn at 06:12 today (approx 11.5 hours after the previous dose) was 25.1. This is above goal range so will hold current dose. This morning's dose was already infusing so called nurse to stop infusion (the patient received approximately half the dose). Will order a vanc random level to be drawn tonight at 22:00. Will use that level to determine if dosing should be resumed at that time. The patient's CrCl of >100ml/min was calculated using an adjusted body weight. Pharmacy Service will continue to monitor and adjust dosing as required. Follow-Up Labs: Trough Vancomycin - random Labs to be done on [date and time ordered]: 11/02/22 22:00
[2022-11-02] MEDS: Juven (unflavored) Packet 1 PACKET PO ×2 (09:09→16:44)
[2022-11-02] MEDS: Insulin Glargine-YFGN 100 UNIT/ML Pen 15 UNIT SC (09:11)
[2022-11-02] MEDS: Lisinopril 5 MG Tablet PO (09:12)
[2022-11-02] MEDS: Metoprolol(XL)Succ 25 MG Tablet 75 MG PO (09:12)
[2022-11-02] MEDS: Furosemide 40 MG/4 ML Vial IV (09:12)
[2022-11-02] MEDS: Ferrous Sulfate 325 MG Tablet PO ×2 (11:43→16:44)
[2022-11-02 12:06] LABS: Bedside Glucose 174 mg/dL (74-106)
--- NOTE | 2022-11-02 16:01 | CON.PCM.SX_ITS ---
Assessment & Plan Assessment/Plan (1) Non-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: (2) Osteomyelitis of toe of right foot: (3) Atherosclerosis of lower extremity with ulceration: PLAN: Plan Recommend vascular intervention to attempt to improve inflow to R foot prior to R 2nd digit amputation. Will tentatively plan for angiogram as long as patient is otherwise med ically stable. Patient's INR today was 3.0. Hold Coumadin with goal INR 2.0 for procedure. Once INR is at 2.0 initiate heparin drip to bridge. Do not recommend any reversal agents, if INR not at goal by will plan for angiogram early next week instead. Discussed the above plan with patient and he was agreeable. Will also attempt to contact family listed in chart to discuss given patient's intermittent confusion. HPI Consult Data Date of Consult: 11/02/22 HPI Narrative HPI Narrative: RAPHAEL HADDAD, is a 71 M who presented to the ED from SNF with worsening SOB and confusion. He was admitted for CHF vs COPD exacerbation, R pleural effusion, encephalopathy. He had been on Augmentin for cellulitis related to R 2nd toe wound, wound culture was positive for MRSA so this was changed to vanco on admission. Podiatry was consulted regarding this wound and they are recommending amputation of the R 2nd toe. There is concern for inadequate perfusion to heal and so we are consulted. This patient is known to the office, he has been seen regarding this R toe wound of unknown duration and PAD. Had ordered LEAS on 09/30/22 which revealed R HERNESTO 0.[address] scan was completed on 10/27/22 which revealed significant stenosis of the R SFA/fem/pop. Patient was due to f/u in the office to discuss angiogram. Medical history is significant for diabetes, CHF, COPD, CAD s/p CABG (2019), mechanical aortic valve (2019, coumadin). He is a poor historian, but record review reveals history of R SFA balloon angioplasty in 07/2019 and history of LLE bypass in 2007. R 1st toe was amputated in 2019 secondary to wound/infection. He continues to smoke. Today, he endorses pain in the R 2nd toe but otherwise no significant lower e xtremity pain. He endorses SOB but denies CP, palpitations/heart racing. He denies N/V, F/C. COUNTS INCLUDE 234 BEDS AT THE [facility] Medical History (Updated 11/01/22 @ 15:[address] 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 Lumbar spinal stenosis MSSA (methicillin susceptible Staphylococcus aureus) infection Nicotine dependence Non-healing surgical wound (05/01/20) Nonrheumatic aortic (valve) stenosis 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 Obstructive sleep apnea Osteomyelitis Peripheral vascular occlusive disease Pleural effusion, right Scabies infestation Secondary pulmonary arterial hypertension Smoker Sternal wound infection Type 2 diabetes mellitus 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 foot with fat layer exposed Ulcer of right foot with necrosis of bone Home Medications metformin 500 mg tablet 500 mg PO BIDCM diabetes 05/31/20 [History Last Taken 09/21/21] atorvastatin 40 mg tablet 40 mg PO QHS cholesterol 11/12/20 [History Last Taken 09/20/21] potassium chloride 20 mEq tablet,extended release(part/cryst) 20 meq PO DAILY suipplement 12/23/20 [History Last Taken 12/22/20] linagliptin 5 mg tablet (Tradjenta) 5 mg PO DAILY DM 10/08/21 [History Last Taken Unknown] lisinopril 5 mg tablet 5 mg PO DAILY HTN 10/08/21 [History Last Taken Unknown] metoprolol succinate 25 mg tablet,extended release 24 hr 75 mg PO DAILY HTN 10/08/21 [History Last Taken Unknown] doxepin 50 mg capsule 50 mg PO QHS Check with primary doctor 02/11/22 [History L ast Taken Unknown] insulin aspart U-100 100 unit/mL (3 mL) subcutaneous pen (Novolog FlexPen U-100 Insulin aspart) 10 unit (0.1 mL) subcut BIDCM diabetes #3 mL 02/12/22 [Rx Last Taken Unknown] insulin glargine 100 unit/mL (3 mL) subcutaneous pen (Lantus Solostar U-100 Insulin) 25 unit (0.25 mL) subcut DAILY DM #3 mL 02/12/22 [Rx Last Taken Unknown] ascorbic acid (vitamin C) 500 mg capsule 500 mg PO BID 10/14/22 [History Last Taken Unknown] furosemide 20 mg tablet 40 mg PO DAILY diuretic 10/14/22 [History Last Taken Unknown] gabapentin 100 mg capsule 200 mg PO BID pain 10/14/22 [History Last Taken Unknown] warfarin 6 mg tablet (Jantoven) 4 mg PO DAILY Check with primary doctor 10/14/22 [History Last Taken Unknown] amoxicillin 875 mg-potassium clavulanate 125 mg tablet 1 tab PO BID #20 tabs 10/19/22 [Rx Last Taken Unknown] cholecalciferol (vitamin D3) 50 mcg (2,000 unit) capsule (Vitamin D3) 50 mcg PO DAILY 10/29/22 [History Last Taken Unknown] ferrous sulfate 325 mg (65 mg iron) tablet 325 mg PO DAILY 10/29/22 [History Last Taken Unknown] ipratropium 0.5 mg-albuterol 3 mg (2.5 mg base)/3 mL nebulization soln 3 ml inhalation Q4H PRN SOB 10/29/22 [History Last Taken Unknown] Allergy/AdvReac Type Severity Reaction Status Date / Time No Known Allergies Allergy Verified 10/19/22 13:51 Family History Mother Diabetes Heart disease Father Diabetes Surgical History H/O coronary artery bypass surgery (05/01/20) History of angioplasty of peripheral vessel (01/02/10) History of femoropopliteal bypass (2008) History of incision and drainage (09/22/20) History of left heart catheterization (04/23/20) History of lumbar laminectomy History of mechanical aortic valve replacement Social History household members: significant other Smoking Status: Current every day smoker tobacco type: cigarettes alcohol intake: never substance use type: does not use caffeine: No ROS Constitutional Constitutional: Reports systems reviewed and no addt'l complaints, except as documented Eyes Eyes: Reports systems reviewed and no addt'l complaints, except as documented ENT HEENT: Reports systems reviewed and no addt'l complaints, except as documented Cardiovascular Cardiovascular: Reports systems reviewed and no addt'l complaints, except as documented Respiratory/Chest Respiratory/Chest: Reports systems reviewed and no addt'l complaints, except as documented Gastrointestinal Gastrointestinal: Reports systems reviewed and no addt'l complaints, except as documented Genitourinary Genitourinary: Reports systems reviewed and no addt'l complaints, except as documented Musculoskeletal Musculoskeletal: Reports systems reviewed and no addt'l complaints, except as documented Integumentary Integumentary: Reports systems reviewed and no addt'l complaints, except as documented Neurologic Neurologic: Reports systems reviewed and no addt'l complaints, except as documented Psychiatric Psychiatric: Reports systems reviewed and no addt'l complaints, except as documented Endocrine Endocrinology: Reports systems reviewed and no addt'l complaints, except as documented Hematologic/Lymphatic Hematologic/Lymphatic: Reports systems reviewed and no addt'l complaints, except as documented Allergic/Immunologic Allergic/Immunologic: Reports systems reviewed and no addt'l complaints, except as documented Physical Exam Const alert, oriented x3 and no apparent distress Constitutional Narrative: appeared mildly confused at times but answered questions appropriately, somewhat distractable but easily redirected General Appearance: cooperative HEENT normocephalic, head/scalp atraumatic, hearing grossly normal bilaterally, external ears normal and external nose normal Eyes EOMs intact bilaterally General Eye: normal appearance of both eyes Resp normal respiratory effort, no retractions and no use of accessory muscles Effort and Inspection: Negative for stridor or audible wheezes Cardio regular rate and regular rhythm Peripheral Pulses: radial pulses present Extremity Extremity Narrative: Absent R DP/PT pulses, DP with monophasic signal, PT with biphasic signal on doppler. N significant pallor, mottling/discoloration, erythema of RLE. Appropriate warmth. No significant edema. Skin Wounds: wounds noted Wound Narrative: R 2nd digit dressing intact, not removed for examination. No drainage or foul odor noted. Neuro oriented x3, CN's II-XII intact bilaterally and moves all extremities Speech: speech normal Psych cooperative and activity/motor behavior normal Appearance: grossly normal Attitude: calm Lab / Micro Data Result Diagrams: 11/02/22 06:12 11/02/22 06:12 Labs: Laboratory Results - last 24 hr 11/01/22 17:04: POC Glucose 177 H 11/01/22 21:11: POC Glucose 216 H 11/02/22 06:12: WBC 4.3 L, RBC 4.17 L, Hgb 10.9 L, Hct 36.0 L, MCV 86.3, MCH 26.1 L, MCHC 30.3 L, RDW Std Deviation 68.2 H, RDW Coeff of Estrada 21.6 H, Plt Count 170, MPV 10.1 11/02/22 06:12: Sodium 139, Potassium 3.7, Chloride 109 H, Carbon Dioxide 30.0, Anion Gap 0 L, BUN 17, Creatinine 0.62 L, Estim Creat Clear Calc 74.25, Est GFR (MDRD) Af Amer 167, Est GFR (MDRD) Non-Af 138, BUN/Creatinine Ratio 27.6 H, Glucose 158 H, Calcium 8.2 L, Total Bilirubin 1.20 H, AST 22, ALT 19, Alkaline Phosphatase 181 H, Total Protein 6.4, Albumin 2.8 L, Globulin 3.6, Albumin/Globulin Ratio 0.8 L 11/02/22 06:12: PT 30.5 H, INR 3.0 11/02/22 06:12: Vancomycin Trough 25.1 H 11/02/22 06:34: POC Glucose 167 H 11/02/22 11:42: POC Glucose 174 H Micro: Microbiology 10/30/22 17:38 Urine, Random Urine Culture - Final Pseudomonas aeruginosa Rhythm Strip Rhythm Strip: Sinus Rhythm Rate: 81 Ectopy: None Charges/Coding Visit Charges Inpatient E&M: 69784 Subs Hosp L3
--- NOTE | 2022-11-02 16:02 | PN.HOSP_ITS ---
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 (10/29/22) Peripheral vascular disease, unspecified (10/29/22) Chronic obstructive pulmonary disease, unspecified (10/29/22) Acute respiratory failure with hypercapnia (10/29/22) Non-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 (10/29/22) Non-pressure chronic ulcer of other part of left foot with fat layer exposed (10/29/22) Osteomyelitis, unspecified (10/29/22) Difficulty in walking, not elsewhere classified (10/29/22) Presence of aortocoronary bypass graft (10/29/22) Presence of prosthetic heart valve (10/29/22) Objective Data Objective Data Vital Signs: Vital Signs Temp Pulse Resp BP Pulse Ox O2 Del Method O2 Flow Rate 99.1 F 89 18 146/88 H 100 Nasal Cannula 2 11/02/22 15:24 11/02/22 15:24 11/02/22 15:24 11/02/22 15:24 11/02/22 15:24 11/02/22 15:26 11/02/22 15:26 FiO2 25 10/31/22 23:18 Oxygen Flow Rate (L/min) 2 Oxygen Delivery Method Nasal Cannula Weight: 234 lb 12.677 oz Body Mass Index (BMI) 32.7 Intake & Output: Intake and Output for Last 24 Hours 10/31/22 11/01/22 11/02/22 23:59 23:59 23:59 Intake Total 1070 / 1070 1060 / 1060 1089.17 / 1089.17 Output Total 975 / 975 400 / 400 250 / 250 Balance 95 / 95 660 / 660 839.17 / 839.17 Lab / Micro Data Result Diagrams: 11/02/22 06:12 11/02/22 06:12 Labs: Laboratory Results - last 24 hr 11/01/22 17:04: POC Glucose 177 H 11/01/22 21:11: POC Glucose 216 H 11/02/22 06:12: WBC 4.3 L, RBC 4.17 L, Hgb 10.9 L, Hct 36.0 L, MCV 86.3, MCH 26.1 L, MCHC 30.3 L, RDW Std Deviation 68.2 H, RDW Coeff of Estrada 21.6 H, Plt Count 170, MPV 10.1 11/02/22 06:12: Sodium 139, Potassium 3.7, Chloride 109 H, Carbon Dioxide 30.0, Anion Gap 0 L, BUN 17, Creatinine 0.62 L, Estim Creat Clear Calc 74.25, Est GFR (MDRD) Af Amer 167, Est GFR (MDRD) Non-Af 138, BUN/Creatinine Ratio 27.6 H, Glucose 158 H, Calcium 8.2 L, Total Bilirubin 1.20 H, AST 22, ALT 19, Alkaline Phosphatase 181 H, Total Protein 6.4, Albumin 2.8 L, Globulin 3.6, Albumin/Globulin Ratio 0.8 L 11/02/22 06:12: PT 30.5 H, INR 3.0 11/02/22 06:12: Vancomycin Trough 25.1 H 11/02/22 06:34: POC Glucose 167 H 11/02/22 11:42: POC Glucose 174 H Micro: Microbiology 10/30/22 17:38 Urine, Random Urine Culture - Final Pseudomonas aeruginosa 10/29/22 19:20 Blood Culture (Wb) - Anticubital Right Blood Culture - Preliminary No growth in 48 hours. 10/29/22 19:29 Blood Culture (Wb) - Right Hand Blood Culture - Preliminary No growth in 48 hours. 10/30/22 17:38 Urine, Clean Catch Legionella Antigen - Final 10/30/22 17:38 Urine, Clean Catch Streptococcus pneumoniae Antigen (M - Final 10/29/22 17:30 Mucosa - Nose Respiratory Panel (PCR) - Final 10/29/22 17:30 Nasal Secretion SARS-CoV-2 & FLU Antigen (Rapid) - Final Rhythm Strip Rhythm Strip: Sinus Rhythm Rate: 81 Ectopy: None Physical Exam Narrative Seen and examined. Patient easily gets short of breath even on mild exertion. Bilateral feet ulcer. Vascular surgery consulted by meat service team member. Plan for angiogram before toe amputation Physical exam General: Alert, Oriented x3, Cooperative, obesity grade 233.0 kg/m?. HEENT: Atraumatic, PERRLA, EOMI, Normocephalic Oral: Oral mucosa moist. No Gingival or Mucosal Lesions/ Ulcerations Neck: Supple, No JVD, Negative Carotid Bruits Chest wall/lungs: Air entry diminished in bilateral lung bases. No crepitation/rhonchi. Patient has mid chest to epigastric ventral hernia. Seems portion of heart and bowel with bowel sounds. Chronic. Cardiovascular: Regular rate, Regular Rhythm, Normal S1, Normal S2, mechanical aortic valve sound. Abdomen: Bowel Sounds Present, Soft, Non Tender, with epigastric hernia. Does not seem obstructed. : No renal angle tenderness. No suprapubic tenderness. Extremities: 2+ bilateral pitting edema, Capillary Refill Less than 3 Seconds Skin: Bilateral feet ulcer. Musculoskeletal: No Tenderness to Palpation of Joints or Extremities. ROM severely limited. Decreased mobility. Neurological: Cranial nerves II-XII grossly intact, DTR 2+/4, muscle strength 4+/5 at knees and hip joints. Psych/Mental Status: Flat affect. Assessment & Plan Assessment/Plan (1) Acute hypercapnic respiratory failure: (2) Encephalopathy acute: (3) Chronic combined systolic and diastolic CHF (congestive heart failure): (4) Type 2 diabetes mellitus: (5) Atherosclerosis of lower extremity with ulceration: PLAN: Plan 1. Acute hypercapnic respiratory failure. * -AECHF vs AECOPD vs R pleural effusion, less likely PNA given wbc WNL and no left shift * -CXR remonstrated right pleural effusion with increased interstitial lung markings * -ABG with pH of 7.34 with a PO2 of 95 and a PCO2 of 58.3 patient placed on BiPAP * -BNP 512, has had higher in the past but does have persistent R pleural e ffusion and sounds more congested * -40iv lasix qday * Heart failure core measures including intake and output, fluid restriction less than 1500 mL, daily weight monitoring, kidney and electrolytes monitoring * On BiPAP. * -COVID, respiratory panel and urinary antigens are negative. 11/01: . Continue diuresis. EF 40 to 45% which report identifies as slightly improved LV systolic dysfunction from September 22, 2021. Repeat chest x-ray shows large right pleural effusion with ventral hernia 11/02: Patient is diuresing well. #R foot wound w/ Wound cx positive for MRSA and kocuria kristinae -11/01: Patient was evaluated by meat service team member and had bedside debridement. Concern of potential osteomyelitis and if that may be will need amputation. ESR mildly elevated Today. Patient on IV vancomycin. Prelim urine culture shows GNR possible Pseudomonas. Blood culture negative for more than 48 hours. Urine culture shows GNR possible Pseudomonas [id number] colonies. It is in nonpathologic range and therefore will leave on ID. 11/02: Vascular surgery consulted.Discussed with the [facility] vascular PA. INR is 3.0 therefore warfarin is held. If INR is 2 by we will proceed with angio if not we will plan for angio early next week instead. Once INR is 2 we will start on heparin drip to bridge for procedure. Patient is high risk given for small procedure to open because of chronic cardiac and respiratory conditions. #Possible acute exacerbation of chronic systolic and diastolic heart failure * -As above * -Last echocardiogram 09/22/2021 showed EF of 30% with stage III diastolic dysfunction 11/02: Repeat Echo reported EF 40 to 45% with normal appearing bioprosthetic aortic valve. In comparison to echo September 22, improvement in LV systolic function. Toprol-XL increased to 100 mg daily. Will need cardiology consult for further optimization prior to toe amputation. #hx R pleural effusion * -Low-dose lung CT 09/29/2022 with large right pleural effusion and associated atelectasis as well as a midline ventral hernia containing fat and bowel loops with diffuse induration of subcutaneous fat that had suggested anasarca. * Repeat chest x-ray unchanged as mentioned above #Hx of underlying lung dz * -Had presumed to have COPD but recent PFTs 10/27 actually with moderately severe restrictive ventilatory defect with a symmetric reduction diffusion capacity and possible some stigmata of concomitant small airway disease which is less consistent with COPD * -Will need to continue following with pulm #Acute encephalopathy, likely metabolic encephalopathy from hypercapnia. -11/01: Waxing and waning course. But today patient seems in lucid and normal behavior.on schedule melatonin nightly, small dose of Risperdal 0.25 mg twice daily if unsuccessful #Hyperkalemia * -Unclear etiology- resolved after lasix and recheck * -Receiving Lasix * -EKG heart rate 81 bpm and normal sinus rhythm with nonspecific T wave changes but no peaked T waves * -Hold home potassium supplementation #?History of DVT * -Previous documentation of DVT in old note but not documented elsewhere, will try to clarify * -Chronically on Coumadin #Coronary disease status post CABG 04/2020/mechanical [facility] AVR/PAD s/p fempop bypass * -Cont asa, statin * -Followed by vascular on outpatient basis, has had previous intervention for breast peripheral artery disease * -INR 3.3, continue coumadin, daily INRs * -If subtherapeutic will need bridged with heparin given video player mechanic valve -10/31: INR 2.9. Has mechanical valve, will need daily INRs and close monitoring #Type 2 diabetes mellitus * -Glucose checks and sliding scale insulin * -Long-acting insulin #DVT ppx: Therapeutic on Coumadin Clinical Impression(s) from Imaging Studies Chest X-Ray 10/29/22 15:00 IMPRESSION: There is a right pleural effusion. Epigastric ventral hernia visualized extending along the right para midline. The hernia likely contains colon. Electronically Signed: Carson Morris MD at 15:30 EDT Reading Location ID and State: [facility] / [place] , Service support , Echocardiogram 10/29/22 16:25 Interpretation Summary The estimated ejection fraction is 40-45 %. Normal-appearing bioprosthetic aortic valve In comparison to previous echo in September 22, 2021 Improvement in LV systolic function. Ordering Physician: Ann Marie Cox Referring Physician: Saurabh Hernandez Chi Performed By: Mariam Laboy, JOCELYN, RVT Chest X-Ray 10/30/22 05:05 IMPRESSION: 1. Large ventral hernia again seen overlying the right side of the chest. 2. Large right pleural effusion similar to the prior exam. Electronically Signed: Jose Cruz English MD at 7:49 EDT , Charges/Coding Visit Charges Inpatient E&M: 23775 Subs Hosp L2
[2022-11-02 17:11] LABS: Bedside Glucose 187 mg/dL (74-106)
[2022-11-02] MEDS: MELATONIN 3 MG TABLET PO (20:48)
[2022-11-02] MEDS: Atorvastatin Calcium 40 MG Tablet PO (20:48)
[2022-11-02 22:20] LABS: Vancomycin, Random Level 18.6 ug/mL (0.0-15.0)
[2022-11-02 22:21] LABS: Bedside Glucose 221 mg/dL (74-106)
[2022-11-02] MEDS: Acetaminophen 325 MG Tablet 650 MG PO (23:26)
--- NOTE | 2022-11-02 23:31 | PCM.RX.CS ---
Consult Pharmacy has been consulted to manage selected antiobiotic: Vancomycin Type of Consult: Follow-up Suspected Infection: Skin/Soft tissue Prior Doses of Antibiotics Received/Current Regimen: Medications Vancomycin HCl (Vancomycin) 1,000 mg in 200 mls @ 200 mls/hr IV Q12H ARIA Discontinued Medications Vancomycin HCl 1,500 mg/ (Sodium Chloride) 530 mls @ 250 mls/hr IV Q12H ARIA Last Admin: 11/02/22 07:30 Dose: Infused Labs: Sodium 139 mmol/L (136-145) 11/02/22 06:12 Potassium 3.7 mmol/L (3.5-5.1) 11/02/22 06:12 Chloride 109 mmol/L (98-107) H 11/02/22 06:12 Carbon Dioxide 30.0 mmol/L (21.0-32.0) 11/02/22 06:12 Anion Gap 0 (5-15) L 11/02/22 06:12 BUN 17 mg/dL (7-18) 11/02/22 06:12 Creatinine 0.62 mg/dL (0.70-1.30) L 11/02/22 06:12 Est GFR (MDRD) Af Amer 167 mL/min (>60) 11/02/22 06:12 Est GFR (MDRD) Non-Af 138 mL/min (>60) 11/02/22 06:12 BUN/Creatinine Ratio 27.6 RATIO (10-20) H 11/02/22 06:12 Glucose 158 mg/dL (74-106) H 11/02/22 06:12 Vancomycin Trough 25.1 ug/mL (5.0-15.0) H 11/02/22 06:12 Random Vancomycin 18.6 ug/mL (0.0-15.0) H 11/02/22 21:47 Microbiology: Microbiology 10/30/22 17:38 Urine, Random Urine Culture - Final Pseudomonas aeruginosa 10/29/22 19:20 Blood Culture (Wb) - Anticubital Right Blood Culture - Preliminary No growth in 48 hours. 10/29/22 19:29 Blood Culture (Wb) - Right Hand Blood Culture - Preliminary No growth in 48 hours. 10/30/22 17:38 Urine, Clean Catch Legionella Antigen - Final 10/30/22 17:38 Urine, Clean Catch Streptococcus pneumoniae Antigen (M - Final 10/29/22 17:30 Mucosa - Nose Respiratory Panel (PCR) - Final 10/29/22 17:30 Nasal Secretion SARS-CoV-2 & FLU Antigen (Rapid) - Final Weight used for dosin.5 kg Estimated Creatinine Clearance: >100 Goal Trough: 15-20 mcg/mL Pharmacy Plan for Drug Dosing: Random vancomycin level was 18.6, so OK to re-start dosing. This was after a partial dose infused 11/02/22 @0635 (partial due to high trough result). Per dosing calculator, a new dose of 1000mg q12h should give and estimated trough of 16.0. Will initiate and re-draw a trough prior to fourth dose of new regimen. Pharmacy Service will continue to monitor and adjust dosing as required. Follow-Up Labs: Trough Vancomycin Labs to be done on [date and time ordered]: 11/04/22 @3991
[2022-11-03] VITALS (12 sets, daily range): BP systolic 117–155; BP diastolic 62–98; PULSE 69–86; RESP 18–24; TEMP 36.6–36.8; O2SAT 92–97; BMI 32.6
[2022-11-03] MEDS: Vancomycin IV 1,000 MG/200 ML BAG 200 MG IV ×2 (00:22→13:14)
[2022-11-03] MEDS: 0.9% Saline Lock 10 ML Syringe IV ×2 (00:23→09:23)
[2022-11-03 05:12] LABS: Hematocrit 34.2 % (40-54); Hemoglobin 10.2 g/dL (13.0-16.5); Mean Corp Hgb Conc 29.8 g/dL (32-36); Mean Corpuscular Hgb 25.9 pg (27.0-32.0); Mean Corpuscular Volume 86.8 fL (80-94); Mean Platelet Vol. 10.3 fl (6.2-12.0); POSITIVE MORPHOLOGY YES; Platelet Count 158 K/mm3 (150-450); RBC Distribution Width CV 21.8 % (11.6-14.6); RBC Distribution Width SD 69.2 fl (35.1-43.9); Red Blood Count 3.94 M/mm3 (4.6-6.2)
[2022-11-03 05:14] LABS: Scan Indicated on CBC? Y/N YES- FLAGS NOTED
[2022-11-03 05:24] LABS: International Normalized Ratio 3.2; Prothrombin Time (Protime)PT. 32.1 SECONDS (11.7-14.9)
[2022-11-03 05:49] LABS: ALB/GLOB Ratio 0.8 RATIO (0.9-2.4); AST(SGOT) 21 U/L (15-37); Alanine Aminotransfer ALT/SGPT 18 U/L (16-61); Albumin, Serum 2.8 g/dL (3.2-5.0); Alkaline Phosphatase 161 U/L (45-117); Anion Gap 1 (5-15); BUN 21 mg/dL (7-18); BUN/Creat Ratio 28.3 RATIO (10-20); Calcium,Total 8.2 mg/dL (8.5-10.1); Chloride 107 mmol/L (98-107); Creatinine, Serum 0.74 mg/dL (0.70-1.30); EST Glomerular Filtration Rate 111 mL/min (>60); Est Glom Filt Rate - Afr Amer 134 mL/min (>60); Estimated Creatinine Clearance 74.25 ml/min; Globulin 3.3 g/dL (2.2-4.2); Glucose 141 mg/dL (74-106); Potassium 3.4 mmol/L (3.5-5.1); Protein, Total 6.1 g/dL (6.4-8.2); Sodium Level 137 mmol/L (136-145)
[2022-11-03] MEDS: Acetaminophen 325 MG Tablet 650 MG PO ×3 (05:52→22:47)
[2022-11-03] MEDS: Ipratropium/Albuterol Sulfate 3 ML AMPUL.NEB INHALATION ×5 (06:10→23:06)
[2022-11-03 06:40] LABS: Bedside Glucose 139 mg/dL (74-106)
[2022-11-03] MEDS: guaiFENesin 10 ML UDC (200MG/10ML) PO ×3 (06:51→22:47)
--- NOTE | 2022-11-03 08:18 | CON.PCM.CA_ITS ---
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 * Patient does continue to have shortness of breath. This could be related to his ventral hernia however it could also be related to his recurrent right pleural effusion. Would consider thoracentesis prior to proceeding with toe amputation. * He does have a mechanical valve, he has been placed on heparin in anticipation for upcoming vascular procedures. After procedures will need to restart coumadin. * Recommend continuation of his metoprolol, lisinopril, and atorvastatin. HPI Consult Data Date of Consult: 11/04/22 HPI Narrative HPI Narrative: RAPHAEL HADDAD, is a 71 M who presented to [facility] on 10/29/2022 for increased shortness of breath. Patient does reside at a nursing facility. It was noted that he had increased shortness of breath over the last 3 days with an increased cough. He was started on an antibiotic for cellulitis of his lower extremities prior to ER visit. Patient was admitted for acute exacerbation of chronic systolic and diastolic heart failure. Echocardiogram was done and did demonstrate an improved ejection fraction of 40 to 45%. Vascular is involved with his chronic ulcer on his right foot. He is noted to have necrosis of the bone with osteomyelitis of the toe. Cardiology was asked to consult to help to optimize patient for his upcoming surgery for amputation of his toe. Patient is known to us. He was last in our office in January 2022. He does have a history of coronary artery disease with bypass surgery, aortic valve replacement on May 01, 2020.? He had an WAITE to the LAD, free BRYAN to the obtuse marginal, aortic valve replacement with a 21 mm [place] mechanical valve.? He also has a history of hypertension, cardiomyopathy, hyperlipidemia, COPD, diabetes, peripheral vascular disease. 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 He underwent a sternal flap.? He was on ertapenen through 11/04/20 and fluconazole through 03/25/21. He recovered in an ECF last year. Patient states that since he was last in the office to see us he is now in [place] for failure to thrive. He does not have any chest discomfort. He has shortness of breath with anything that he does. He is not active due to the ulcer on his leg. [facility] Medical History (Updated 11/03/22 @ 13:15 by Dhara BROWN, PA) Adult failure to thrive Atherosclerosis of coronary artery without angina pectoris Bleeding disorder CHF (congestive heart failure) Chronic combined systolic and diastolic CHF (congestive heart failure) Congestive heart failure COPD (chronic obstructive pulmonary disease) Diabetic foot infection DVT (deep venous thrombosis) Elevated troponin Gangrene of toe GERD (gastroesophageal reflux disease) History of non-ST elevation myocardial infarction (NSTEMI) (04/23/20) Hyperlipidemia Ischemic cardiomyopathy Kidney stones skilled nursing current use of 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 Lumbar spinal stenosis MSSA (methicillin susceptible Staphylococcus aureus) infection Nicotine dependence Non-healing surgical wound (05/01/20) Nonrheumatic aortic (valve) stenosis 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 Obstructive sleep apnea Osteomyelitis Peripheral vascular occlusive disease Pleural effusion, right Recurrent right pleural effusion Scabies infestation Secondary pulmonary arterial hypertension Smoker Sternal wound infection Type 2 diabetes mellitus 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 foot with fat layer exposed Ulcer of right foot with necrosis of bone Home Medications metformin 500 mg tablet 500 mg PO BIDCM diabetes 05/31/20 [History Last Taken 09/21/21] atorvastatin 40 mg tablet 40 mg PO QHS cholesterol 11/12/20 [History Last Taken 09/20/21] potassium chloride 20 mEq tablet,extended release(part/cryst) 20 meq PO DAILY suipplement 12/23/20 [History Last Taken 12/22/20] linagliptin 5 mg tablet (Tradjenta) 5 mg PO DAILY DM 10/08/21 [History Last Taken Unknown] lisinopril 5 mg tablet 5 mg PO DAILY HTN 10/08/21 [History Last Taken Unknown] metoprolol succinate 25 mg tablet,extended release 24 hr 75 mg PO DAILY HTN 10/08/21 [History Last Taken Unknown] doxepin 50 mg capsule 50 mg PO QHS Check with primary doctor 02/11/22 [History Last Taken Unknown] insulin aspart U-100 100 unit/mL (3 mL) subcutaneous pen (Novolog FlexPen U-100 Insulin aspart) 10 unit (0.1 mL) subcut BIDCM diabetes #3 mL 02/12/22 [Rx Last Taken Unknown] insulin glargine 100 unit/mL (3 mL) subcutaneous pen (Lantus Solostar U-100 Insulin) 25 unit (0.25 mL) subcut DAILY DM #3 mL 02/12/22 [Rx Last Taken Unkno wn] ascorbic acid (vitamin C) 500 mg capsule 500 mg PO BID 10/14/22 [History Last Taken Unknown] furosemide 20 mg tablet 40 mg PO DAILY diuretic 10/14/22 [History Last Taken Unknown] gabapentin 100 mg capsule 200 mg PO BID pain 10/14/22 [History Last Taken Unknown] warfarin 6 mg tablet (Jantoven) 4 mg PO DAILY Check with primary doctor 10/14/22 [History Last Taken Unknown] amoxicillin 875 mg-potassium clavulanate 125 mg tablet 1 tab PO BID #20 tabs 10/19/22 [Rx Last Taken Unknown] cholecalciferol (vitamin D3) 50 mcg (2,000 unit) capsule (Vitamin D3) 50 mcg PO DAILY 10/29/22 [History Last Taken Unknown] ferrous sulfate 325 mg (65 mg iron) tablet 325 mg PO DAILY 10/29/22 [History Last Taken Unknown] ipratropium 0.5 mg-albuterol 3 mg (2.5 mg base)/3 mL nebulization soln 3 ml inhalation Q4H PRN SOB 10/29/22 [History Last Taken Unknown] Allergy/AdvReac Type Severity Reaction Status Date / Time No Known Allergies Allergy Verified 10/19/22 13:51 Family History Mother Diabetes Heart disease Father Diabetes Surgical History H/O coronary artery bypass surgery (05/01/20) History of angioplasty of peripheral vessel (01/02/10) History of femoropopliteal bypass (2008) History of incision and drainage (09/22/20) History of left heart catheterization (04/23/20) History of lumbar laminectomy History of mechanical aortic valve replacement Social History household members: significant other Smoking Status: Current every day smoker tobacco type: cigarettes alcohol intake: never substance use type: does not use caffeine: No ROS Constitutional Constitutional: Reports fatigue ENT HEENT: Reports none Cardiovascular Cardiovascular: Reports abdominal bloating, dyspnea at rest and dyspnea on exertion; Denies chest pain Respiratory/Chest Respiratory/Chest: Reports cough, dyspnea and dyspnea on exertion Gastrointestinal Gastrointestinal: Reports none Musculoskeletal Musculoskeletal: Reports back pain, extremity pain, muscle weakness and myalgias Integumentary Integumentary: Reports wounds Physical Exam Narrative Physical exam General: Alert, Oriented x3, Cooperative, obesity HEENT: Atraumatic, PERRLA, EOMI, Normocephalic Oral: Oral mucosa moist. Neck: Supple, No JVD, Negative Carotid Bruits Chest wall/lungs: diminished in bilateral lung bases. Patient has mid chest to epigastric ventral hernia. Seems portion of heart and bowel with bowel sounds. Chronic. Cardiovascular: Regular rate, Regular Rhythm, Normal S1, Normal S2, mechanical aortic valve sound. Abdomen: Bowel Sounds Present, Soft, Non Tender, with epigastric hernia. Does not seem obstructed. : No renal angle tenderness. No suprapubic tenderness. Extremities: trace edema, right leg cooler than left. Diminished pulses Skin: Bilateral feet ulcer. Musculoskeletal: ROM severely limited. Decreased mobility. Neurological: Cranial nerves II-XII grossly intact, Psych/Mental Status: Flat affect. Risk Stratification Risk Stratification Applicable: No Objective Data Vital Signs: Vital Signs Temp Pulse Resp BP Pulse Ox O2 Del Method O2 Flow Rate 98.0 F 71 20 H 136/70 H 93 Nasal Cannula 2 11/03/22 06:26 11/03/22 06:26 11/03/22 06:26 11/03/22 06:26 11/03/22 07:19 11/03/22 07:51 11/03/22 07:51 FiO2 25 10/31/22 23:18 Oxygen Flow Rate (L/min) 2 Oxygen Delivery Method Nasal Cannula Weight: 234 lb 5.622 oz Body Mass Index (BMI) 32.6 Intake & Output: Intake and Output for Last 24 Hours 11/01/22 11/02/22 11/03/22 23:59 23:59 23:59 Intake Total 1060 / 1060 1749.17 / 1749.17 320 / 320 Output Total 400 / 400 400 / 400 Balance 660 / 660 1349.17 / 1349.17 320 / 320 Lab / Micro Data Result Diagrams: 11/04/22 05:19 11/04/22 05:19 Labs: Laboratory Results - last 24 hr 11/02/22 11:42: POC Glucose 174 H 11/02/22 16:42: POC Glucose 187 H 11/02/22 20:50: POC Glucose 221 H 11/02/22 21:47: Random Vancomycin 18.6 H 11/03/22 04:46: WBC 4.0 L, RBC 3.94 L, Hgb 10.2 L, Hct 34.2 L, MCV 86.8, MCH 25.9 L, MCHC 29.8 L, RDW Std Deviation 69.2 H, RDW Coeff of Estrada 21.8 H, Plt Count 158, MPV 10.3 11/03/22 04:46: Sodium 137, Potassium 3.4 L, Chloride 107, Carbon Dioxide 29.0, Anion Gap 1 L, BUN 21 H, Creatinine 0.74, Estim Creat Clear Calc 74.25, Est GFR (MDRD) Af Amer 134, Est GFR (MDRD) Non-Af 111, BUN/Creatinine Ratio 28.3 H, Glucose 141 H, Calcium 8.2 L, Total Bilirubin 1.20 H, AST 21, ALT 18, Alkaline Phosphatase 161 H, Total Protein 6.1 L, Albumin 2.8 L, Globulin 3.3, Albumin/Globulin Ratio 0.8 L 11/03/22 04:46: PT 32.1 H, INR 3.2 11/03/22 06:09: POC Glucose 139 H Micro: Microbiology 10/30/22 17:38 Urine, Random Urine Culture - Final Pseudomonas aeruginosa Rhythm Strip Rhythm Strip: Sinus Rhythm Rate: 81 Ectopy: None Cardiology Labs/Tests 11/03/22 04:46: WBC 4.0 L, RBC 3.94 L, Hgb 10.2 L, Hct 34.2 L, MCV 86.8, MCH 25.9 L, MCHC 29.8 L, Plt Count 158, MPV 10.3 11/03/22 04:46: Sodium 137, Potassium 3.4 L, Chloride 107, Carbon Dioxide 29.0, Anion Gap 1 L, BUN 21 H, Creatinine 0.74, Est GFR (MDRD) Af Amer 134, Est GFR (MDRD) Non-Af 111, BUN/Creatinine Ratio 28.3 H, Glucose 141 H, Calcium 8.2 L, Total Bilirubin 1.20 H 11/03/22 04:46: PT 32.1 H, INR 3.2 ECHO: 10/29/2022 The estimated ejection fraction is 40-45 %. Normal-appearing bioprosthetic aortic valve In comparison to previous echo in September 22, 2021 Improvement in LV systolic function. CXR: 10/30/2022: 1.? Large ventral hernia again seen overlying the right side of the chest. ? 2.? Large right pleural effusion similar to the prior exam. Chest CT Scan: 09/2022: The lung windows show lungs to be normally expanded. There is a large right pleural effusion with associated atelectasis. There is no suspicious noncalcified mass or nodule, or organized infiltrate. Soft tissue windows show normal-appearing thyroid gland. There are scattered subcentimeter in short axis dimension axillary lymph nodes. Peripheral calcifications noted in the thoracic aorta without aneurysm. There is a midline ventral hernia containing fat and bowel loops, there is diffuse induration of the subcutaneous fat suggesting anasarca. There are calcified coronary vessels. Limited cuts to the upper abdomen show diffuse ascites, bony structures show degenerative change Documented by User: Dr. 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 * Patient does continue to have shortness of breath. This could be related to his ventral hernia however it could also be related to his recurrent right pleural effusion. Would consider thoracentesis prior to proceeding with toe amputation. * He does have a mechanical valve, he has been placed on heparin in anticipation for upcoming vascular procedures. After procedures will need to restart coumadin. * Recommend continuation of his metoprolol, lisinopril, and atorvastatin. We will continue to monitor and follow-up clinically. HPI Consult Data Date of Consult: 11/04/22 [facility] Medical History (Updated 11/03/22 @ 13:15 by Dhara BROWN, PA) Adult failure to thrive Atherosclerosis of coronary artery without angina pectoris Bleeding disorder CHF (congestive heart failure) Chronic combined systolic and diastolic CHF (congestive heart failure) Congestive heart failure COPD (chronic obstructive pulmonary disease) Diabetic foot infection DVT (deep venous thrombosis) Elevated troponin Gangrene of toe GERD (gastroesophageal reflux disease) History of non-ST elevation myocardial infarction (NSTEMI) (04/23/20) Hyperlipidemia Ischemic cardiomyopathy Kidney 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 Lumbar spinal stenosis MSSA (methicillin susceptible Staphylococcus aureus) infection Nicotine dependence Non-healing surgical wound (05/01/20) Nonrheumatic aortic (valve) stenosis 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 Obstructive sleep apnea Osteomyelitis Peripheral vascular occlusive disease Pleural effusion, right Recurrent right pleural effusion Scabies infestation Secondary pulmonary arterial hypertension Smoker Sternal wound infection Type 2 diabetes mellitus 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 foot with fat layer exposed Ulcer of right foot with necrosis of bone Home Medications metformin 500 mg tablet 500 mg PO BIDCM diabetes 05/31/20 [History Last Taken 09/21/21] atorvastatin 40 mg tablet 40 mg PO QHS cholesterol 11/12/20 [History Last Taken 09/20/21] potassium chloride 20 mEq tablet,extended release(part/cryst) 20 meq PO DAILY suipplement 12/23/20 [History Last Taken 12/22/20] linagliptin 5 mg tablet (Tradjenta) 5 mg PO DAILY DM 10/08/21 [History Last Taken Unknown] lisinopril 5 mg tablet 5 mg PO DAILY HTN 10/08/21 [History Last Taken Unknown] metoprolol succinate 25 mg tablet,extended release 24 hr 75 mg PO DAILY HTN 10/08/21 [History Last Taken Unknown] doxepin 50 mg capsule 50 mg PO QHS Check with primary doctor 02/11/22 [History Last Taken Unknown] insulin aspart U-100 100 unit/mL (3 mL) subcutaneous pen (Novolog FlexPen U-100 Insulin aspart) 10 unit (0.1 mL) subcut BIDCM diabetes #3 mL 02/12/22 [Rx Last Taken Unknown] insulin glargine 100 unit/mL (3 mL) subcutaneous pen (Lantus Solostar U-100 Insu radha) 25 unit (0.25 mL) subcut DAILY DM #3 mL 02/12/22 [Rx Last Taken Unknown] ascorbic acid (vitamin C) 500 mg capsule 500 mg PO BID 10/14/22 [History Last Taken Unknown] furosemide 20 mg tablet 40 mg PO DAILY diuretic 10/14/22 [History Last Taken Unknown] gabapentin 100 mg capsule 200 mg PO BID pain 10/14/22 [History Last Taken Unknown] warfarin 6 mg tablet (Jantoven) 4 mg PO DAILY Check with primary doctor 10/14/22 [History Last Taken Unknown] amoxicillin 875 mg-potassium clavulanate 125 mg tablet 1 tab PO BID #20 tabs 10/19/22 [Rx Last Taken Unknown] cholecalciferol (vitamin D3) 50 mcg (2,000 unit) capsule (Vitamin D3) 50 mcg PO DAILY 10/29/22 [History Last Taken Unknown] ferrous sulfate 325 mg (65 mg iron) tablet 325 mg PO DAILY 10/29/22 [History Last Taken Unknown] ipratropium 0.5 mg-albuterol 3 mg (2.5 mg base)/3 mL nebulization soln 3 ml inhalation Q4H PRN SOB 10/29/22 [History Last Taken Unknown] Allergy/AdvReac Type Severity Reaction Status Date / Time No Known Allergies Allergy Verified 10/19/22 13:51 Family History Mother Diabetes Heart disease Father Diabetes Surgical History H/O coronary artery bypass surgery (05/01/20) History of angioplasty of peripheral vessel (01/02/10) History of femoropopliteal bypass (2008) History of incision and drainage (09/22/20) History of left heart catheterization (04/23/20) History of lumbar laminectomy History of mechanical aortic valve replacement Social History household members: significant other Smoking Status: Current every day smoker tobacco type: cigarettes alcohol intake: never substance use type: does not use caffeine: No Lab / Micro Data Result Diagrams: 11/04/22 05:19 11/04/22 05:19
[2022-11-03] MEDS: Metoprolol(XL)Succ 100 MG Tablet PO (09:21)
[2022-11-03] MEDS: Furosemide 40 MG/4 ML Vial IV (09:23)
[2022-11-03] MEDS: Juven (unflavored) Packet 1 PACKET PO ×2 (09:23→16:24)
[2022-11-03] MEDS: Ferrous Sulfate 325 MG Tablet PO ×2 (09:23→16:24)
[2022-11-03] MEDS: Insulin Glargine-YFGN 100 UNIT/ML Pen 15 UNIT SC (09:23)
[2022-11-03] MEDS: Lisinopril 5 MG Tablet PO (09:23)
[2022-11-03] MEDS: Insulin Lispro 100 UNIT/ML INSULN.PEN SC ×2 (11:27→22:48)
[2022-11-03 11:51] LABS: Bedside Glucose 150 mg/dL (74-106)
--- NOTE | 2022-11-03 12:17 | PN.SURG_ITS ---
Subjective Subjective Patient reports he is doing okay today. He feels like his breathing/SOB is close to his baseline. He reports he is on supplemental O2 at SNF also, but not sure how much. He is only on 2 lpm here. He continues to have pain in R toe/foot, no worse than yesterday. Denies N/V/F/C. Objective Data Objective Data A&Ox3, NAD Answered questions appropriately today Nonlabored respirations, slightly tachypneic R toe wrapped, dressing intact with no bleed through or drainage noted. Dressing taken down slightly to examine wound which was without significant erythema, swelling, foul odor. Vital Signs: Vital Signs Temp Pulse Resp BP Pulse Ox O2 Del Method O2 Flow Rate 98.1 F 80 18 125/64 H 95 Room Air 2 11/03/22 09:20 11/03/22 11:07 11/03/22 11:07 11/03/22 09:20 11/03/22 09:20 11/03/22 09:20 11/03/22 07:51 FiO2 25 10/31/22 23:18 Oxygen Flow Rate (L/min) 2 Oxygen Delivery Method Room Air Weight: 234 lb 5.622 oz Body Mass Index (BMI) 32.6 Intake & Output: Intake and Output for Last 24 Hours 11/01/22 11/02/22 11/03/22 23:59 23:59 23:59 Intake Total 1060 / 1060 1749.17 / 1749.17 680 / 680 Output Total 400 / 400 400 / 400 Balance 660 / 660 1349.17 / 1349.17 680 / 680 Lab / Micro Data Result Diagrams: 11/03/22 04:46 11/03/22 04:46 Labs: Laboratory Results - last 24 hr 11/02/22 16:42: POC Glucose 187 H 11/02/22 20:50: POC Glucose 221 H 11/02/22 21:47: Random Vancomycin 18.6 H 11/03/22 04:46: WBC 4.0 L, RBC 3.94 L, Hgb 10.2 L, Hct 34.2 L, MCV 86.8, MCH 25.9 L, MCHC 29.8 L, RDW Std Deviation 69.2 H, RDW Coeff of Estrada 21.8 H, Plt Count 158, MPV 10.3 11/03/22 04:46: Sodium 137, Potassium 3.4 L, Chloride 107, Carbon Dioxide 29.0, Anion Gap 1 L, BUN 21 H, Creatinine 0.74, Estim Creat Clear Calc 74.25, Est GFR (MDRD) Af Amer 134, Est GFR (MDRD) Non-Af 111, BUN/Creatinine Ratio 28.3 H, G lucose 141 H, Calcium 8.2 L, Total Bilirubin 1.20 H, AST 21, ALT 18, Alkaline Phosphatase 161 H, Total Protein 6.1 L, Albumin 2.8 L, Globulin 3.3, Albumin/Globulin Ratio 0.8 L 11/03/22 04:46: PT 32.1 H, INR 3.2 11/03/22 06:09: POC Glucose 139 H 11/03/22 11:25: POC Glucose 150 H Micro: Microbiology 10/30/22 17:38 Urine, Random Urine Culture - Final Pseudomonas aeruginosa 10/29/22 19:20 Blood Culture (Wb) - Anticubital Right Blood Culture - Preliminary No growth in 48 hours. 10/29/22 19:29 Blood Culture (Wb) - Right Hand Blood Culture - Preliminary No growth in 48 hours. 10/30/22 17:38 Urine, Clean Catch Legionella Antigen - Final 10/30/22 17:38 Urine, Clean Catch Streptococcus pneumoniae Antigen (M - Final 10/29/22 17:30 Mucosa - Nose Respiratory Panel (PCR) - Final 10/29/22 17:30 Nasal Secretion SARS-CoV-2 & FLU Antigen (Rapid) - Final Rhythm Strip Rhythm Strip: Sinus Rhythm Rate: 81 Ectopy: None Assessment & Plan Assessment/Plan (1) Non-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: (2) Osteomyelitis of toe of right foot: (3) Atherosclerosis of lower extremity with ulceration: PLAN: Plan Patient's INR today is 3.2. Unlikely to be at goal for procedure tomorrow. Will plan for next week instead. Continue to hold Coumadin. Do not recommend any reversal agents given his mechanical aortic valve. When INR is around 2.0 initiate heparin drip to bridge to procedure. Will continue to monitor. Charges/Coding Visit Charges Inpatient E&M: 15547 Subs Hosp L2
--- NOTE | 2022-11-03 13:44 | PN.HOSP_ITS ---
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 (10/29/22) Peripheral vascular disease, unspecified (10/29/22) Chronic obstructive pulmonary disease, unspecified (10/29/22) Acute respiratory failure with hypercapnia (10/29/22) Non-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 (10/29/22) Non-pressure chronic ulcer of other part of left foot with fat layer exposed (10/29/22) Osteomyelitis, unspecified (10/29/22) Difficulty in walking, not elsewhere classified (10/29/22) Presence of aortocoronary bypass graft (10/29/22) Presence of prosthetic heart valve (10/29/22) Subjective Subjective Follow-up for shortness of breath, heart failure, bilateral feet infection and PAD. INR is still high. Objective Data Objective Data Vital Signs: Vital Signs Temp Pulse Resp BP Pulse Ox O2 Del Method O2 Flow Rate 98.1 F 82 18 125/64 H 95 Room Air 2 11/03/22 09:20 11/03/22 13:23 11/03/22 13:23 11/03/22 09:20 11/03/22 09:20 11/03/22 09:20 11/03/22 07:51 FiO2 25 10/31/22 23:18 Oxygen Flow Rate (L/min) 2 Oxygen Delivery Method Room Air Weight: 234 lb 5.622 oz Body Mass Index (BMI) 32.6 Intake & Output: Intake and Output for Last 24 Hours 11/01/22 11/02/22 11/03/22 23:59 23:59 23:59 Intake Total 1060 / 1060 1749.17 / 1749.17 680 / 680 Output Total 400 / 400 400 / 400 Balance 660 / 660 1349.17 / 1349.17 680 / 680 Lab / Micro Data Result Diagrams: 11/03/22 04:46 11/03/22 04:46 Labs: Laboratory Results - last 24 hr 11/02/22 16:42: POC Glucose 187 H 11/02/22 20:50: POC Glucose 221 H 11/02/22 21:47: Random Vancomycin 18.6 H 11/03/22 04:46: WBC 4.0 L, RBC 3.94 L, Hgb 10.2 L, Hct 34.2 L, MCV 86.8, MCH 25.9 L, MCHC 29.8 L, RDW Std Deviation 69.2 H, RDW Coeff of Estrada 21.8 H, Plt Count 158, MPV 10.3 11/03/22 04:46: Sodium 137, Potassium 3.4 L, Chloride 107, Carbon Dioxide 29.0, Anion Gap 1 L, BUN 21 H, Creatinine 0.74, Estim Creat Clear Calc 74.25, Est GFR (MDRD) Af Amer 134, Est GFR (MDRD) Non-Af 111, BUN/Creatinine Ratio 28.3 H, Glucose 141 H, Calcium 8.2 L, Total Bilirubin 1.20 H, AST 21, ALT 18, Alkaline Phosphatase 161 H, Total Protein 6.1 L, Albumin 2.8 L, Globulin 3.3, Albumin/Globulin Ratio 0.8 L 11/03/22 04:46: PT 32.1 H, INR 3.2 11/03/22 06:09: POC Glucose 139 H 11/03/22 11:25: POC Glucose 150 H Micro: Microbiology 10/30/22 17:38 Urine, Random Urine Culture - Final Pseudomonas aeruginosa 10/29/22 19:20 Blood Culture (Wb) - Anticubital Right Blood Culture - Preliminary No growth in 48 hours. 10/29/22 19:29 Blood Culture (Wb) - Right Hand Blood Culture - Preliminary No growth in 48 hours. 10/30/22 17:38 Urine, Clean Catch Legionella Antigen - Final 10/30/22 17:38 Urine, Clean Catch Streptococcus pneumoniae Antigen (M - Final 10/29/22 17:30 Mucosa - Nose Respiratory Panel (PCR) - Final 10/29/22 17:30 Nasal Secretion SARS-CoV-2 & FLU Antigen (Rapid) - Final Rhythm Strip Rhythm Strip: Sinus Rhythm Rate: 81 Ectopy: None Physical Exam Narrative Seen and examined. Patient easily gets short of breath even on mild exertion. Bilateral feet ulcer. Vascular surgery consulted by weatherseal technician. Fast Food Restaurant Manager consulted. Plan for angiogram before toe amputation Physical exam General: Alert, Oriented x3, Cooperative, obesity grade 32.7 kg/m?. HEENT: Atraumatic, PERRLA, EOMI, Normocephalic Oral: Oral mucosa moist. No Gingival or Mucosal Lesions/ Ulcerations Neck: Supple, No JVD, Negative Carotid Bruits Chest wall/lungs: Air entry diminished in bilateral lung bases more on the right side. No crepitation/rhonchi. Patient has mid chest to epigastric ventral hernia. Seems portion of heart and bowel with bowel sounds on auscultation, chronic. Cardiovascular: Regular rate, Regular Rhythm, Normal S1, Normal S2, mechanical aortic valve sound. Abdomen: Bowel Sounds Present, Soft, Non Tender, with epigastric hernia. Does not seem obstructed. : No renal angle tenderness. No suprapubic tenderness. Extremities: 1+ bilateral pitting edema, Capillary Refill Less than 3 Seconds Skin: Bilateral feet ulcer. Musculoskeletal: No Tenderness to Palpation of Joints or Extremities. ROM severely limited. Decreased mobility. Neurological: Cranial nerves II-XII grossly intact, DTR 2+/4, muscle strength 4+/5 at knees and hip joints. Psych/Mental Status: Flat affect. Assessment & Plan Assessment/Plan (1) Acute hypercapnic respiratory failure: (2) Encephalopathy acute: (3) Chronic combined systolic and diastolic CHF (congestive heart failure): (4) Type 2 diabetes mellitus: (5) Atherosclerosis of lower extremity with ulceration: PLAN: Plan 1. Acute hypercapnic respiratory failure. * -AECHF vs AECOPD vs R pleural effusion, less likely PNA given wbc WNL and no left shift * -CXR remonstrated right pleural effusion with increased interstitial lung markings * -ABG with pH of 7.34 with a PO2 of 95 and a PCO2 of 58.3 patient placed on BiPAP * -BNP 512, has had higher in the past but does have persistent R pleural effusion and sounds more congested * -40iv lasix qday * Heart failure core measures including intake and output, fluid restriction less than 1500 mL, daily weight monitoring, kidney and electrolytes monitoring * On BiPAP. * -COVID, respiratory panel and urinary antigens are negative. 11/01: . Continue diuresis. EF 40 to 45% which report identifies as slightly improved LV systolic dysfunction from September 22, 2021. Repeat chest x-ray shows large right pleural effusion with ventral hernia 11/02: Patient had 400 mill urine output over last 2 days. Still short of breath probably due to large right pleural effusion. Discussed with the property custodian and IR, Dr. Starkey. Ultrasound-guided thoracocentesis ordered and plan for thoracocentesis in a.m. if INR permits 2. #R foot wound w/ Wound cx positive for MRSA and kocuria kristinae -11/01: Patient was evaluated by weatherseal technician and had bedside debridement. Concern of potential osteomyelitis and if that may be will need amputation. ESR mildly elevated Today. Patient on IV vancomycin. Prelim urine culture shows GNR possible Pseudomonas. Blood culture negative for more than 48 hours. Urine culture shows GNR possible Pseudomonas [id number] colonies. It is in nonpathologic range and therefore will leave on ID. 11/02: Vascular surgery consulted.Discussed with the [place] vascular PA. INR is 3.0 therefore warfarin is held. If INR is 2 by we will proceed with angio if not we will plan for angio early next week instead. Once INR is 2 we will start on heparin drip to bridge for procedure. Patient is high risk given for small procedure to open because of chronic cardiac and respiratory conditions. 11/03: INR 3.2. Last dose of warfarin was on 11/01. Monitor INR daily. 3. Acute exacerbation of chronic systolic and diastolic heart failure * -Last echocardiogram 09/22/2021 showed EF of 30% with stage III diastolic dysfunction 11/02: Repeat Echo reported EF 40 to 45% with normal appearing bioprosthetic aortic valve. In comparison to echo September 22, improvement in LV systolic function. Toprol-XL increased to 100 mg daily. 11/03: Fast Food Restaurant Manager consulted. Portable chest x-ray ordered . Patient has large right pleural effusion. Had right-sided thoracocentesis, 1850 mL fluid drained in July 2022. Patient is not having good diuresis with Lasix. toe amputation. 4. #hx R pleural effusion * -Low-dose lung CT 09/29/2022 with large right pleural effusion and associated atelectasis as well as a midline ventral hernia containing fat and bowel loops with diffuse induration of subcutaneous fat that had suggested anasarca. * Repeat chest x-ray unchanged as mentioned above #Hx of underlying lung dz * -Had presumed to have COPD but recent PFTs 10/27 actually with moderately severe restrictive ventilatory defect with a symmetric reduction diffusion capacity and possible some stigmata of concomitant small airway disease which is less consistent with COPD * -Will need to continue following with pulm #Acute encephalopathy, likely metabolic encephalopathy from hypercapnia. -11/01: Waxing and waning course. But today patient seems in lucid and normal behavior.on schedule melatonin nightly, small dose of Risperdal 0.25 mg twice daily if unsuccessful #Hyperkalemia * -Unclear etiology- resolved after lasix and recheck * -Receiving Lasix * -EKG heart rate 81 bpm and normal sinus rhythm with nonspecific T wave changes but no peaked T waves * -Hold home potassium supplementation #?History of DVT * -Previous documentation of DVT in old note but not documented elsewhere, will try to clarify * -Chronically on Coumadin #Coronary disease status post CABG 04/2020/mechanical [facility] AVR/PAD s/p fempop bypass * -Cont asa, statin * -Followed by vascular on outpatient basis, has had previous intervention for breast peripheral artery disease * -INR 3.3, continue coumadin, daily INRs * -If subtherapeutic will need bridged with heparin given electronic integrated systems mechanic valve -10/31: INR 2.9. Has mechanical valve, will need daily INRs and close monitoring #Type 2 diabetes mellitus * -Glucose checks and sliding scale insulin * -Long-acting insulin #DVT ppx: Therapeutic on Coumadin Clinical Impression(s) from Imaging Studies Chest X-Ray 10/29/22 15:00 IMPRESSION: There is a right pleural effusion. Epigastric ventral hernia visualized extending along the right para midline. The hernia likely contains colon. Electronically Signed: Carson Morris MD at 15:30 EDT , Echocardiogram 10/29/22 16:25 Interpretation Summary The estimated ejection fraction is 40-45 %. Normal-appearing bioprosthetic aortic valve In comparison to previous echo in September 22, 2021 Improvement in LV systolic function. Ordering Physician: Ann Marie Cox Referring Physician: Saurabh Hernandez Chi Performed By: Mariam Laboy, RDCS, RVT Chest X-Ray 10/30/22 05:05 IMPRESSION: 1. Large ventral hernia again seen overlying the right side of the chest. 2. Large right pleural effusion similar to the prior exam. Electronically Signed: Jose Cruz English MD at 7:49 EDT , Charges/Coding Addendum Addendum: Total time of the visit including total time spent in counseling or coordination of care, (more than 50% of the total time, spent in obtaining medical information from nurses and other ancillary care providers,explaining to the patient about labs, imaging, diagnosis and management of active complex medical conditions), discussion with property custodian, IR, vascular surgeon, weatherseal technician,And ID, review of labs and imaging is 50 minutes Visit Charges Inpatient E&M: 33741 Subs Hosp L3
--- NOTE | 2022-11-03 15:23 | PCM.PN.ID ---
Physical Exam Narrative Feeling ok, vascular procedure planned, no fever Const alert and no apparent distress Resp normal air movement and clear to auscultation bilaterally Cardio regular rate and regular rhythm GI soft to palpation, non-tender and non-distended Skin Skin Narrative: foot wrapped ID ID: Route of nutrition/ use of supplements: [] Nutritional Intake: [] IV Site: [] Abreu Catheter: [] Assessment & Plan Assessment/Plan (1) Non-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: PLAN: On vanc. Recent wound cx with MRSA and kocuria. Amputation planned. Podiatry following. Ucx with only small growth pseudomonas, no urinary complaints. Will follow
[2022-11-03] MEDS: Spironolactone 25 MG Tablet PO (16:24)
[2022-11-03 16:46] LABS: Bedside Glucose 133 mg/dL (74-106)
--- NOTE | 2022-11-03 17:13 | PN_ITS ---
Subjective Subjective Patient was seen today for follow up on feet. He is sitting up in chair eating dinner. No new complaints. No complaints of f/c/n/v. Objective Data Objective Data Vital Signs: Vital Signs Temp Pulse Resp BP Pulse Ox O2 Del Method O2 Flow Rate 98.1 F 86 24 H 155/98 H 96 Room Air 2 11/03/22 15:20 11/03/22 15:20 11/03/22 15:20 11/03/22 15:20 11/03/22 15:20 11/03/22 15:20 11/03/22 07:51 FiO2 25 10/31/22 23:18 Oxygen Flow Rate (L/min) 2 Oxygen Delivery Method Room Air Weight: 106.3 kg Body Mass Index (BMI) 32.6 Intake & Output: Intake and Output for Last 24 Hours 11/01/22 11/02/22 11/03/22 23:59 23:59 23:59 Intake Total 1060 / 1060 1749.17 / 1749.17 1240 / 1240 Output Total 400 / 400 400 / 400 450 / 450 Balance 660 / 660 1349.17 / 1349.17 790 / 790 Lab / Micro Data Result Diagrams: 11/04/22 05:19 11/04/22 05:19 Labs: Laboratory Results - last 24 hr 11/02/22 20:50: POC Glucose 221 H 11/02/22 21:47: Random Vancomycin 18.6 H 11/03/22 04:46: WBC 4.0 L, RBC 3.94 L, Hgb 10.2 L, Hct 34.2 L, MCV 86.8, MCH 25.9 L, MCHC 29.8 L, RDW Std Deviation 69.2 H, RDW Coeff of Estrada 21.8 H, Plt Count 158, MPV 10.3 11/03/22 04:46: Sodium 137, Potassium 3.4 L, Chloride 107, Carbon Dioxide 29.0, Anion Gap 1 L, BUN 21 H, Creatinine 0.74, Estim Creat Clear Calc 74.25, Est GFR (MDRD) Af Amer 134, Est GFR (MDRD) Non-Af 111, BUN/Creatinine Ratio 28.3 H, Glucose 141 H, Calcium 8.2 L, Total Bilirubin 1.20 H, AST 21, ALT 18, Alkaline Phosphatase 161 H, Total Protein 6.1 L, Albumin 2.8 L, Globulin 3.3, Albumin/Globulin Ratio 0.8 L 11/03/22 04:46: PT 32.1 H, INR 3.2 11/03/22 06:09: POC Glucose 139 H 11/03/22 11:25: POC Glucose 150 H 11/03/22 16:22: POC Glucose 133 H Micro: Microbiology 11/02/22 23:30 Sputum, Expectorated/Coughed Gram Stain - Final 10/30/22 17:38 Urine, Random Urine Culture - Final Pseudomonas aeruginosa 10/29/22 19:20 Blood Culture (Wb) - Anticubital Right Blood Culture - Preliminary No growth in 48 hours. 10/29/22 19:29 Blood Culture (Wb) - Right Hand Blood Culture - Preliminary No growth in 48 hours. 10/30/22 17:38 Urine, Clean Catch Legionella Antigen - Final 10/30/22 17:38 Urine, Clean Catch Streptococcus pneumoniae Antigen (M - F inal 10/29/22 17:30 Mucosa - Nose Respiratory Panel (PCR) - Final 10/29/22 17:30 Nasal Secretion SARS-CoV-2 & FLU Antigen (Rapid) - Final Rhythm Strip Rhythm Strip: Sinus Rhythm Rate: 81 Ectopy: None Physical Exam Narrative Left 2nd toe is ulceration to the distal tip down to subcutaneous tissue, no evidence of infection. Assessment & Plan Assessment/Plan (1) Non-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: (2) Type 2 diabetes mellitus: (3) Peripheral vascular occlusive disease: (4) Osteomyelitis of toe of right foot: PLAN: Plan Reviewed diagnostic data. Clinically there is osteomyelitis right 2nd toe. Reviewed cultures of ulceration - MRSA and Kocuria Kristinae - patient is on antibiotic therapy per ID service at this time. Vascular surgery following patient, and waiting vascular procedure prior to right 2nd toe amputation - toe stable at this time. Left 2nd toe is stable as well. Continue with local wound care. Podiatry will continue to follow every 2-3 days at this point.
[2022-11-03] MEDS: Atorvastatin Calcium 40 MG Tablet PO (22:48)
[2022-11-03] MEDS: MELATONIN 3 MG TABLET PO (22:48)
[2022-11-03 22:56] LABS: Bedside Glucose 188 mg/dL (74-106)
--- NOTE | 2022-11-03 23:35 | CPS ---
pt did not want to wear bipap at this time
[2022-11-04] VITALS (9 sets, daily range): BP systolic 114–121; BP diastolic 57–64; PULSE 63–77; RESP 16–24; TEMP 36.2–36.9; O2SAT 97–100; BMI 32.5
[2022-11-04] MEDS: Vancomycin IV 1,000 MG/200 ML BAG 200 MG IV ×2 (01:23→13:26)
[2022-11-04 06:13] LABS: Absolute Lymphocyte Count 0.91 X10^3/uL (0.83-4.51); Basophil# 0.03 X10^3/uL; Basophil% 0.8 % (0-1); Eosinophil# 0.07 X10^3/uL; Eosinophils% 1.8 % (0-5); Hematocrit 32.6 % (40-54); Hemoglobin 9.8 g/dL (13.0-16.5); Lymphocyte # 0.91 X10^3/ul (0.83-4.51); Lymphocyte % 23.3 % (19-41); Mean Corp Hgb Conc 30.1 g/dL (32-36); Mean Corpuscular Hgb 26.3 pg (27.0-32.0); Mean Corpuscular Volume 87.6 fL (80-94); Monocyte# 0.85 X10^3/uL; Monocyte% 21.7 % (0-10); NRBC Flagged by Analyzer 0 % (0-5); Neutrophil # 2.03 X10^3/uL (2.7-7.7); Neutrophil % 51.9 % (47-70); POSITIVE MORPHOLOGY YES; Platelet Count 133 K/mm3 (150-450); RBC Distribution Width CV 21.7 % (11.6-14.6); RBC Distribution Width SD 70.2 fl (35.1-43.9); Red Blood Count 3.72 M/mm3 (4.6-6.2); White Blood Count 3.9 K/mm3 (4.4-11.0)
[2022-11-04 06:20] LABS: Differential Indicated SCAN CRITERIA MET
[2022-11-04 06:45] LABS: Anisocytosis 2+; Platelet Estimate SLT DEC (ADEQ); Prothrombin Time (Protime)PT. 30.5 SECONDS (11.7-14.9)
[2022-11-04 06:52] LABS: ALB/GLOB Ratio 0.8 RATIO (0.9-2.4); Anion Gap 2 (5-15); BUN 35 mg/dL (7-18); Calcium,Total 8.4 mg/dL (8.5-10.1); Chloride 106 mmol/L (98-107); Creatinine, Serum 1.25 mg/dL (0.70-1.30); EST Glomerular Filtration Rate 61 mL/min (>60); Est Glom Filt Rate - Afr Amer 74 mL/min (>60); Globulin 3.5 g/dL (2.2-4.2); Glucose 162 mg/dL (74-106); LDH 213 U/L (87-241); Potassium 3.5 mmol/L (3.5-5.1); Protein, Total 6.2 g/dL (6.4-8.2); Sodium Level 136 mmol/L (136-145)
[2022-11-04 07:00] LABS: Bedside Glucose 147 mg/dL (74-106)
[2022-11-04] MEDS: Ipratropium/Albuterol Sulfate 3 ML AMPUL.NEB INHALATION ×4 (07:04→19:32)
[2022-11-04] MEDS: guaiFENesin 10 ML UDC (200MG/10ML) PO ×2 (08:32→20:43)
[2022-11-04] MEDS: Metoprolol(XL)Succ 100 MG Tablet PO (08:32)
[2022-11-04] MEDS: Lisinopril 5 MG Tablet PO (08:32)
[2022-11-04] MEDS: Acetaminophen 325 MG Tablet 650 MG PO ×2 (08:32→20:43)
[2022-11-04] MEDS: Juven (unflavored) Packet 1 PACKET PO ×2 (08:33→17:18)
[2022-11-04] MEDS: Spironolactone 25 MG Tablet PO (08:33)
--- NOTE | 2022-11-04 09:16 | PN.HOSP_ITS ---
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 (10/29/22) Peripheral vascular disease, unspecified (10/29/22) Chronic obstructive pulmonary disease, unspecified (10/29/22) Acute respiratory failure with hypercapnia (10/29/22) Non-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 (10/29/22) Non-pressure chronic ulcer of other part of left foot with fat layer exposed (10/29/22) Osteomyelitis, unspecified (10/29/22) Difficulty in walking, not elsewhere classified (10/29/22) Presence of aortocoronary bypass graft (10/29/22) Presence of prosthetic heart valve (10/29/22) Objective Data Objective Data Vital Signs: Vital Signs Temp Pulse Resp BP Pulse Ox O2 Del Method O2 Flow Rate 98.1 F 66 18 121/57 H 98 Room Air 2 11/04/22 08:12 11/04/22 08:32 11/04/22 08:12 11/04/22 08:32 11/04/22 08:12 11/04/22 08:43 11/04/22 07:00 FiO2 25 10/31/22 23:18 Oxygen Flow Rate (L/min) 2 Oxygen Delivery Method Room Air Weight: 233 lb 0.458 oz Body Mass Index (BMI) 32.5 Intake & Output: Intake and Output for Last 24 Hours 11/02/22 11/03/22 11/04/22 23:59 23:59 23:59 Intake Total 1749.17 / 1749.17 1240 / 1240 200 / 200 Output Total 400 / 400 450 / 600 300 / 300 Balance 1349.17 / 1349.17 790 / 640 -100 / -100 Lab / Micro Data Result Diagrams: 11/04/22 05:19 11/04/22 05:19 Labs: Laboratory Results - last 24 hr 11/03/22 11:25: POC Glucose 150 H 11/03/22 16:22: POC Glucose 133 H 11/03/22 22:30: POC Glucose 188 H 11/04/22 05:19: PT 30.5 H, INR 3.0 11/04/22 05:19: WBC 3.9 L, RBC 3.72 L, Hgb 9.8 L, Hct 32.6 L, MCV 87.6, MCH 26.3 L, MCHC 30.1 L, RDW Std Deviation 70.2 H, RDW Coeff of Estrada 21.7 H, Plt Count 133 L, MPV 10.0, Immature Gran % (Auto) 0.500, Neut % (Auto) 51.9, Lymph % (Auto) 23.3, [place] % (Auto) 21.7 H, Eos % (Auto) 1.8, Baso % (Auto) 0.8, Absolute Neuts (auto) 2.0, Absolute Lymphs (auto) 0.91, Nucleated RBC % 0, Platelet Estimate SLT DEC, Anisocytosis 2+ 11/04/22 05:19: Sodium 136, Potassium 3.5, Chloride 106, Carbon Dioxide 28.0, Anion Gap 2 L, BUN 35 H, Creatinine 1.25, Estim Creat Clear Calc 59.40, Est GFR (MDRD) Af Amer 74, Est GFR (MDRD) Non-Af 61, BUN/Creatinine Ratio 28.0 H, Glucose 162 H, Calcium 8.4 L, Lactate Dehydrogenase 213, Total Protein 6.2 L, Globulin 3.5, Albumin/Globulin Ratio 0.8 L 11/04/22 06:33: POC Glucose 147 H Micro: Microbiology 10/29/22 19:29 Blood Culture (Wb) - Right Hand Blood Culture - Final No growth in 5 days. 10/29/22 19:20 Blood Culture (Wb) - Anticubital Right Blood Culture - Final No growth in 5 days. 11/02/22 23:30 Sputum, Expectorated/Coughed Gram Stain - Final 10/30/22 17:38 Urine, Random Urine Culture - Final Pseudomonas aeruginosa 10/30/22 17:38 Urine, Clean Catch Legionella Antigen - Final 10/30/22 17:38 Urine, Clean Catch Streptococcus pneumoniae Antigen (M - Final 10/29/22 17:30 Mucosa - Nose Respiratory Panel (PCR) - Final 10/29/22 17:30 Nasal Secretion SARS-CoV-2 & FLU Antigen (Rapid) - Final Rhythm Strip Rhythm Strip: Sinus Rhythm Rate: 81 Ectopy: None Physical Exam Narrative Seen and examined. Since patient shortness of breath is little better. Bilateral feet ulcer. Vascular surgery consulted by outsole beveler. INR is still high therefore angiogram and thoracocentesis canceled. Vitamin K given. Physical exam General: Alert, Oriented x3, Cooperative, obesity grade 32.7 kg/m?. HEENT: Atraumatic, PERRLA, EOMI, Normocephalic Oral: Oral mucosa moist. No Gingival or Mucosal Lesions/ Ulcerations Neck: Supple, No JVD, Negative Carotid Bruits Chest wall/lungs: Air entry diminished in bilateral lung bases more on the right side. No crepitation/rhonchi. Patient has mid chest to epigastric ventral hernia, chronic Cardiovascular: Regular rate, Regular Rhythm, Normal S1, Normal S2, mechanical aortic valve sound. Abdomen: Bowel Sounds Present, Soft, Non Tender, with epigastric hernia. Does not seem obstructed. : No renal angle tenderness. No suprapubic tenderness. Extremities: 1+ bilateral pitting edema, Capillary Refill Less than 3 Seconds Skin: Bilateral feet ulcer. Right second toe ulcer nonhealing, seems nonviable. Right first toe amputated. Left toe ulcer. Musculoskeletal: No Tenderness to Palpation of Joints or Extremities. ROM sev erely limited. Decreased mobility. Neurological: Cranial nerves II-XII grossly intact, DTR 2+/4, muscle strength 4+/5 at knees and hip joints. Psych/Mental Status: Flat affect. Assessment & Plan Assessment/Plan (1) Acute hypercapnic respiratory failure: (2) Encephalopathy acute: (3) Chronic combined systolic and diastolic CHF (congestive heart failure): (4) Type 2 diabetes mellitus: (5) Atherosclerosis of lower extremity with ulceration: PLAN: Plan 1. Acute hypercapnic respiratory failure. * -AECHF vs AECOPD vs R pleural effusion, less likely PNA given wbc WNL and no left shift * -CXR remonstrated right pleural effusion with increased interstitial lung markings * -ABG with pH of 7.34 with a PO2 of 95 and a PCO2 of 58.3 patient placed on BiPAP * -BNP 512, has had higher in the past but does have persistent R pleural effusion and sounds more congested * -40iv lasix qday * Heart failure core measures including intake and output, fluid restriction less than 1500 mL, daily weight monitoring, kidney and electrolytes monitoring * On BiPAP. * -COVID, respiratory panel and urinary antigens are negative. 11/01: . Continue diuresis. EF 40 to 45% which report identifies as slightly improved LV systolic dysfunction from September 22, 2021. Repeat chest x-ray shows large right pleural effusion with ventral hernia 11/02: Patient had 400 mill urine output over last 2 days. Still short of breath probably due to large right pleural effusion. Discussed with the concrete curer and IR, Dr. Starkey. Ultrasound-guided thoracocentesis ordered and plan for thoracocentesis in a.m. if INR permits 11/03: Positive fluid balance about 2 L. 450 mill urine output yesterday. Vitamin K given in order to correct INR. Thoracocentesis ordered for tomorrow AM. On Lasix 40 IV daily. Spironolactone increased to 50 mg daily. Discussed with the concrete curer. 2. 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 Concern of potential osteomyelitis and if that may be will need amputation. ESR mildly elevated Today. Patient on IV vancomycin. Prelim urine culture shows GNR possible Pseudomonas. Blood culture negative for more than 48 hours. Urine culture shows GNR possible Pseudomonas [id number] colonies. It is in nonpathologic range and therefore will leave on ID. 11/02: Vascular surgery consulted.Discussed with the [place] vascular PA. INR is 3.0 therefore warfarin is held. If INR is 2 by we will proceed with angio if not we will plan for angio early next week instead. Once INR is 2 we will start on heparin drip to bridge for procedure. Patient is high risk given for small procedure to open because of chronic cardiac and respiratory conditions. 11/03: INR 3.2. Last dose of warfarin was on 11/01. Monitor INR daily. 3. Acute exacerbation of chronic systolic and diastolic heart failure * -Last echocardiogram 09/22/2021 showed EF of 30% with stage III diastolic dysfunction 11/02: Repeat Echo reported EF 40 to 45% with normal appearing bioprosthetic aortic valve. In comparison to echo September 22, improvement in LV systolic function. Toprol-XL increased to 100 mg daily. 10/19/18: Head Boys [employer] consulted. Portable chest x-ray ordered . Patient has large right pleural effusion. Had right-sided thoracocentesis, 1850 mL fluid drained in July 2022. Patient is not having good diuresis with Lasix. toe amputation. 4. #hx R pleural effusion * -Low-dose lung CT 09/29/2022 with large right pleural effusion and associated atelectasis as well as a midline ventral hernia containing fat and bowel loops with diffuse induration of subcutaneous fat that had suggested anasarca. * Repeat chest x-ray unchanged as mentioned above #Hx of underlying lung dz * -Had presumed to have COPD but recent PFTs 10/27 actually with moderately severe restrictive ventilatory defect with a symmetric reduction diffusion capacity and possible some stigmata of concomitant small airway disease which is less consistent with COPD * -Will need to continue following with pulm #Acute encephalopathy, likely metabolic encephalopathy from hypercapnia. -11/01: Waxing and waning course. But today patient seems in lucid and normal behavior.on schedule melatonin nightly, small dose of Risperdal 0.25 mg twice d aily if unsuccessful #Hyperkalemia * -Unclear etiology- resolved after lasix and recheck * -Receiving Lasix * -EKG heart rate 81 bpm and normal sinus rhythm with nonspecific T wave changes but no peaked T waves * -Hold home potassium supplementation #?History of DVT * -Previous documentation of DVT in old note but not documented elsewhere, will try to clarify * -Chronically on Coumadin #Coronary disease status post CABG 04/2020/mechanical [facility] AVR/PAD s/p fempop bypass * -Cont asa, statin * -Followed by vascular on outpatient basis, has had previous intervention for breast peripheral artery disease * -INR 3.3, continue coumadin, daily INRs * -If subtherapeutic will need bridged with heparin given drink box mechanic valve -10/31: INR 2.9. Has mechanical valve, will need daily INRs and close monitoring #Type 2 diabetes mellitus * -Glucose checks and sliding scale insulin * -Long-acting insulin #DVT ppx: Therapeutic on Coumadin Clinical Impression(s) from Imaging Studies Chest X-Ray 10/29/22 15:00 IMPRESSION: There is a right pleural effusion. Epigastric ventral hernia visualized extending along the right para midline. The hernia likely contains colon. Electronically Signed: Carson Morris MD at 15:30 EDT , Echocardiogram 10/29/22 16:25 Interpretation Summary The estimated ejection fraction is 40-45 %. Normal-appearing bioprosthetic aortic valve In comparison to previous echo in September 22, 2021 Improvement in LV systolic function. Ordering Physician: Ann Marie Cox Referring Physician: Saurabh Hernandez Chi Performed By: Mariam Laboy, JOCELYN, RVT Chest X-Ray 10/30/22 05:05 IMPRESSION: 1. Large ventral hernia again seen overlying the right side of the chest. 2. Large right pleural effusion similar to the prior exam. Electronically Signed: Jose Cruz English MD at 7:49 EDT , Charges/Coding Visit Charges Inpatient E&M: 98141 Subs Hosp L2
[2022-11-04] MEDS: Furosemide 40 MG/4 ML Vial IV (10:24)
[2022-11-04] MEDS: Insulin Glargine-YFGN 100 UNIT/ML Pen 15 UNIT SC (11:15)
[2022-11-04] MEDS: Insulin Lispro 100 UNIT/ML INSULN.PEN SC ×3 (11:16→20:39)
[2022-11-04] MEDS: Ferrous Sulfate 325 MG Tablet PO (11:19)
--- NOTE | 2022-11-04 11:40 | CASEMGMT ---
KALANI sent updates to Alec. Ashlyn Parkinson [employer] INSPECTOR [employer]
[2022-11-04 12:01] LABS: Bedside Glucose 193 mg/dL (74-106)
[2022-11-04 13:14] LABS: Vancomycin, Trough Level 29.9 ug/mL (5.0-15.0)
--- NOTE | 2022-11-04 13:52 | PHA.PHARE_ITS ---
Consult Pharmacy has been consulted to manage selected antiobiotic: Vancomycin Type of Consult: Follow-up Suspected Infection: Skin/Soft tissue Prior Doses of Antibiotics Received/Current Regimen: 11/03/22 @ 0022 11/03/22 @ 1314 11/04/22 @ 0123 Labs: Sodium 136 mmol/L (136-145) 11/04/22 05:19 Potassium 3.5 mmol/L (3.5-5.1) 11/04/22 05:19 Chloride 106 mmol/L (98-107) 11/04/22 05:19 Carbon Dioxide 28.0 mmol/L (21.0-32.0) 11/04/22 05:19 Anion Gap 2 (5-15) L 11/04/22 05:19 BUN 35 mg/dL (7-18) H 11/04/22 05:19 Creatinine 1.25 mg/dL (0.70-1.30) 11/04/22 05:19 Est GFR (MDRD) Af Amer 74 mL/min (>60) 11/04/22 05:19 Est GFR (MDRD) Non-Af 61 mL/min (>60) 11/04/22 05:19 BUN/Creatinine Ratio 28.0 RATIO (10-20) H 11/04/22 05:19 Glucose 162 mg/dL (74-106) H 11/04/22 05:19 Vancomycin Trough 29.9 ug/mL (5.0-15.0) H 11/04/22 12:35 Random Vancomycin 18.6 ug/mL (0.0-15.0) H 11/02/22 21:47 Microbiology: Microbiology 11/02/22 23:30 Sputum, Expectorated/Coughed Gram Stain - Final 11/02/22 23:30 Sputum, Expectorated/Coughed Respiratory Culture - Preliminary GNR non black top paver operator 10/29/22 19:29 Blood Culture (Wb) - Right Hand Blood Culture - Final No growth in 5 days. 10/29/22 19:20 Blood Culture (Wb) - Anticubital Right Blood Culture - Final No growth in 5 days. 10/30/22 17:38 Urine, Random Urine Culture - Final Pseudomonas aeruginosa 10/30/22 17:38 Urine, Clean Catch Legionella Antigen - Final 10/30/22 17:38 Urine, Clean Catch Streptococcus pneumoniae Antigen (M - Final 10/29/22 17:30 Mucosa - Nose Respiratory Panel (PCR) - Final 10/29/22 17:30 Nasal Secretion SARS-CoV-2 & FLU Antigen (Rapid) - Final Weight used for dosin kg Estimated Creatinine Clearance: 59 Goal Trough: 15-20 mcg/mL Pharmacy Plan for Drug Dosing: Hold Vancomycin , draw random vancomycin on 11/05/22 @ 0600 Pharmacy Service will continue to monitor and adjust dosing as required. Labs to be done on [date and time ordered]: 11/05/22 @ 0600
[2022-11-04 17:56] LABS: Bedside Glucose 168 mg/dL (74-106)
[2022-11-04] MEDS: Atorvastatin Calcium 40 MG Tablet PO (20:39)
[2022-11-04] MEDS: MELATONIN 3 MG TABLET PO (20:40)
[2022-11-04 21:20] LABS: Bedside Glucose 190 mg/dL (74-106)
[2022-11-05] VITALS (12 sets, daily range): BP systolic 97–126; BP diastolic 51–73; PULSE 64–75; RESP 18–40; TEMP 36.7–37.1; O2SAT 91–99; BMI 33.0
--- NOTE | 2022-11-05 | FLU_PTH ---
PATIENT: RAPHAEL HADDAD LOC: [facility] U#:[id number] AGE/SX: 71/M ROOM: [facility] [place]10[place]29/[address]: Dr. Greg Cotter DO : 1950 BED: 1 DIS: 11/12/2022 SPEC #: [id number] RECD: 11/05/22 09:46 STATUS: RICH REQ #: [id number] MATIAS: 11/05/22 00:[address]: Kartik Avila DEPT: CYTOLOGY RECD BY: Jesús Villegas ENTERED: 11/05/22 09:47 SP TYPE: Fluid OTHR DR: MD Dr. Karan Pascual MD Dr. Michael Marshall, KEITHM MD Dr. John Dang MD Dr. Tai Chi Kwok, MD Tissues: THORACIC FLUID Procedures: Special Stain Group II Surgery Specimen Level IV Cytospin Fluid HEADER OPERATION: Ultrasound-guided right thoracentesis PRE-OP DIAGNOSIS: Right pleural effusion TISSUE SUBMITTED: Thoracentesis fluid for cytology DIAGNOSIS CYTOLOGY Thoracentesis fluid for cytology (cytospin and cell block): Negative for malignant cells. AM:valencia 11/08/2022 CYTOLOGY STUDY Slides are reviewed. CYTOLOGY GROSS Received is 100 ml of yellow cloudy fluid labeled with the patient's name and and designated per the requisition as thoracentesis. Submitted for cytology preparation including cell block. / valencia 11/05/2022 TC:5 CPT: 73805, 80388
[2022-11-05] MEDS: Ipratropium/Albuterol Sulfate 3 ML AMPUL.NEB INHALATION ×6 (03:39→22:30)
[2022-11-05 06:27] LABS: Absolute Lymphocyte Count 0.97 X10^3/uL (0.83-4.51); Absolute Neutrophil Count 2.4 X10^3/uL (2.0-7.7); Basophil# 0.02 X10^3/uL; Basophil% 0.5 % (0-1); Eosinophil# 0.13 X10^3/uL; Eosinophils% 3.1 % (0-5); Hemoglobin 9.9 g/dL (13.0-16.5); Lymphocyte # 0.97 X10^3/ul (0.83-4.51); Lymphocyte % 23.3 % (19-41); Mean Corpuscular Hgb 26.1 pg (27.0-32.0); Mean Corpuscular Volume 87.1 fL (80-94); Mean Platelet Vol. 11.1 fl (6.2-12.0); Monocyte# 0.65 X10^3/uL; Monocyte% 15.6 % (0-10); NRBC Flagged by Analyzer 0 % (0-5); Neutrophil # 2.38 X10^3/uL (2.7-7.7); POSITIVE MORPHOLOGY YES; Platelet Count 146 K/mm3 (150-450); RBC Distribution Width CV 21.6 % (11.6-14.6); RBC Distribution Width SD 69.6 fl (35.1-43.9); Red Blood Count 3.79 M/mm3 (4.6-6.2); White Blood Count 4.2 K/mm3 (4.4-11.0)
[2022-11-05 06:36] LABS: Differential Indicated SCAN CRITERIA MET
[2022-11-05 06:46] LABS: International Normalized Ratio 1.7; Prothrombin Time (Protime)PT. 19.4 SECONDS (11.7-14.9)
[2022-11-05 06:59] LABS: Anisocytosis 2+; Platelet Estimate SLT DEC (ADEQ)
[2022-11-05 07:01] LABS: ALB/GLOB Ratio 0.8 RATIO (0.9-2.4); Anion Gap 4 (5-15); BUN 44 mg/dL (7-18); BUN/Creat Ratio 30.8 RATIO (10-20); Calcium,Total 8.1 mg/dL (8.5-10.1); Chloride 104 mmol/L (98-107); Creatinine, Serum 1.43 mg/dL (0.70-1.30); EST Glomerular Filtration Rate 52 mL/min (>60); Est Glom Filt Rate - Afr Amer 63 mL/min (>60); Estimated Creatinine Clearance 51.93 ml/min; Globulin 3.5 g/dL (2.2-4.2); Glucose 123 mg/dL (74-106); LDH 220 U/L (87-241); Potassium 3.8 mmol/L (3.5-5.1); Protein, Total 6.2 g/dL (6.4-8.2); Sodium Level 134 mmol/L (136-145)
[2022-11-05 07:04] LABS: Vancomycin, Random Level 33.6 ug/mL (0.0-15.0)
--- NOTE | 2022-11-05 07:07 | PCM.RX.CS ---
Consult Pharmacy has been consulted to manage selected antiobiotic: Vancomycin Labs: Sodium 134 mmol/L (136-145) L 11/05/22 05:35 Potassium 3.8 mmol/L (3.5-5.1) 11/05/22 05:35 Chloride 104 mmol/L (98-107) 11/05/22 05:35 Carbon Dioxide 26.0 mmol/L (21.0-32.0) 11/05/22 05:35 Anion Gap 4 (5-15) L 11/05/22 05:35 BUN 44 mg/dL (7-18) H 11/05/22 05:35 Creatinine 1.43 mg/dL (0.70-1.30) H 11/05/22 05:35 Est GFR (MDRD) Af Amer 63 mL/min (>60) 11/05/22 05:35 Est GFR (MDRD) Non-Af 52 mL/min (>60) L 11/05/22 05:35 BUN/Creatinine Ratio 30.8 RATIO (10-20) H 11/05/22 05:35 Glucose 123 mg/dL (74-106) H 11/05/22 05:35 Vancomycin Trough 29.9 ug/mL (5.0-15.0) H 11/04/22 12:35 Random Vancomycin 33.6 ug/mL (0.0-15.0) H 11/05/22 05:35 Microbiology: Microbiology 11/02/22 23:30 Sputum, Expectorated/Coughed Gram Stain - Final 11/02/22 23:30 Sputum, Expectorated/Coughed Respiratory Culture - Preliminary GNR non database designer 10/29/22 19:29 Blood Culture (Wb) - Right Hand Blood Culture - Final No growth in 5 days. 10/29/22 19:20 Blood Culture (Wb) - Anticubital Right Blood Culture - Final No growth in 5 days. 10/30/22 17:38 Urine, Random Urine Culture - Final Pseudomonas aeruginosa 10/30/22 17:38 Urine, Clean Catch Legionella Antigen - Final 10/30/22 17:38 Urine, Clean Catch Streptococcus pneumoniae Antigen (M - Final 10/29/22 17:30 Mucosa - Nose Respiratory Panel (PCR) - Final 10/29/22 17:30 Nasal Secretion SARS-CoV-2 & FLU Antigen (Rapid) - Final Weight used for dosin kg Goal Trough: 15-20 mcg/mL Pharmacy Plan for Drug Dosing: Random level above goal range. Hold and re-check level tomorrow with labs. Pharmacy Service will continue to monitor and adjust dosing as required. Follow-Up Labs: Trough Vancomycin - 11/06 @ 0600
[2022-11-05 07:25] LABS: Bedside Glucose 124 mg/dL (74-106)
--- NOTE | 2022-11-05 07:42 | US_ITS ---
PROCEDURE: ULTRASOUND GUIDED THORACENTESIS. DATE: November 05, 2022. INDICATION: Male, 71 years old. Right pleural effusion. PHYSICIAN: Lázaro Archer M.D. PROCEDURE: The risks, benefits, and alternatives to the procedure were explained to the patient. The specific risks of bleeding, infection, and pneumothorax requiring chest tube insertion were discussed and accepted. Written informed consent was obtained. Ultrasonographic evaluation of the right lower pleural space was carried out. An adequate pocket was identified. The patient was placed in the sitting, upright position. The overlying skin was prepped and draped in sterile fashion. 1% lidocaine was administered subcutaneously for local anesthesia. Under ultrasound guidance, a 5 [place] thoracentesis needle/catheter system was advanced into the right posterior lower pleural fluid collection. Approximately 1600 mL of garry-colored fluid was drained. The catheter was removed, and a sterile dressing was applied. A specimen was collected and sent to the laboratory for analysis, as requested by the referring clinician. The patient tolerated the procedure well. A chest x-ray was ordered. US/Thoracentesis W US IMPRESSION: Ultrasound-guided right thoracentesis. Electronically Signed: Lázaro Archer MD at 9:15 EDT ,
--- NOTE | 2022-11-05 08:40 | RAD_ITS ---
STUDY: X-RAY CHEST REASON FOR EXAM: Male, 71 years old. Post thora cxr TECHNIQUE: AP inspiration and expiration views following a right thoracentesis. COMPARISON: Comparison is made with prior study dated October 30, 2022. FINDINGS: The patient is status post right thoracentesis. There is no evidence of pneumothorax. Small residual pleural parenchymal changes at the right lung base. RAD/Chest Insp/Exp 2 View IMPRESSION: Status post right thoracentesis. There is no evidence of pneumothorax. Small residual pleural parenchymal changes at the right lung base. Electronically Signed: Lázaro Archer MD at 9:44 EDT ,
[2022-11-05 09:09] LABS: Cytology, Body Fluid / CSF SEE PATHOLOGY REPORT
[2022-11-05 09:31] LABS: Body Fluid Mononuclear WBC % 96.8 %; Body Fluid Polynuclear WBC # 0.005 10^3/uL; Body Fluid Polynuclear WBC % 3.2 %; Body Fluid Total Cells Counted 0.173 10^3/ul; White Blood Count/Body Fluid 0.155 10^3/uL
[2022-11-05] MEDS: Lisinopril 5 MG Tablet PO (09:37)
[2022-11-05] MEDS: Furosemide 40 MG/4 ML Vial IV (09:37)
[2022-11-05] MEDS: Metoprolol(XL)Succ 100 MG Tablet PO (09:37)
--- NOTE | 2022-11-05 09:37 | PN.SURG_ITS ---
Subjective Subjective Patient had thoracentesis this morning. Vitamin K was administered yesterday in preparation for this. His INR is 1.7 today. He reports his SOB is improved from this morning, though still with some SOB. He complains of pain in his R foot/toe. Otherwise no complaints. Discussed with patient that his angiogram is schedule for Tuesday. Objective Data Objective Data A&Ox3, NAD, Does not appear confused, answered all questions appropriately RRR Nonlabored respirations, slightly tachypneic Surgical shoe on R foot, R toe wrapped, dressing intact with no bleed through or drainage noted. Vital Signs: Vital Signs Temp Pulse Resp BP Pulse Ox O2 Del Method O2 Flow Rate 98.0 F 67 18 118/62 96 Room Air 2 11/05/22 09:33 11/05/22 09:33 11/05/22 09:33 11/05/22 09:33 11/05/22 09:33 11/05/22 09:33 11/04/22 07:00 FiO2 25 10/31/22 23:18 Oxygen Flow Rate (L/min) 2 Oxygen Delivery Method Room Air Weight: 236 lb 12.423 oz Body Mass Index (BMI) 33.0 Intake & Output: Intake and Output for Last 24 Hours 11/03/22 11/04/22 11/05/22 23:59 23:59 23:59 Intake Total 1240 / 1240 1260.5 / 1260.5 Output Total 450 / 600 1400 / 1400 400 / 400 Balance 790 / 640 -139.5 / -139.5 -400 / -400 Lab / Micro Data Result Diagrams: 11/05/22 Unknown 11/05/22 05:35 Labs: Laboratory Results - last 24 hr 11/04/22 11:14: POC Glucose 193 H 11/04/22 12:35: Vancomycin Trough 29.9 H 11/04/22 17:17: POC Glucose 168 H 11/04/22 20:38: POC Glucose 190 H 11/05/22 05:35: PT 19.4 H, INR 1.7 11/05/22 05:35: Sodium 134 L, Potassium 3.8, Chloride 104, Carbon Dioxide 26.0, Anion Gap 4 L, BUN 44 H, Creatinine 1.43 H, Estim Creat Clear Calc 51.93, Est GFR (MDRD) Af Amer 63, Est GFR (MDRD) Non-Af 52 L, BUN/Creatinine Ratio 30.8 H, Glucose 123 H, Calcium 8.1 L, Lactate Dehydrogenase 220, Total Protein 6.2 L, Globulin 3.5, Albumin/Globulin Ratio 0.8 L 11/05/22 05:35: Random Vancomycin 33.6 H 11/05/22 06:35: POC Glucose 124 H 11/05/22 : WBC 4.2 L, RBC 3.79 L, Hgb 9.9 L, Hct 33.0 L, MCV 87.1, MCH 26.1 L, MCHC 30.0 L, RDW Std Deviation 69.6 H, RDW Coeff of Estrada 21.6 H, Plt Count 146 L, MPV 11.1, Immature Gran % (Auto) 0.500, Neut % (Auto) 57.0, Lymph % (Auto) 23.3, [place] % (Auto) 15.6 H, Eos % (Auto) 3.1, Baso % (Auto) 0.5, Absolute Neuts (auto) 2.4, Absolute Lymphs (auto) 0.97, Nucleated RBC % 0, Platelet Estimate SLT DEC, Anisocytosis 2+ Micro: Microbiology 11/02/22 23:30 Sputum, Expectorated/Coughed Gram Stain - Final 11/02/22 23:30 Sputum, Expectorated/Coughed Respiratory Culture - Preliminary GNR non blast hole driller 10/29/22 19:29 Blood Culture (Wb) - Right Hand Blood Culture - Final No growth in 5 days. 10/29/22 19:20 Blood Culture (Wb) - Anticubital Right Blood Culture - Final No growth in 5 days. 10/30/22 17:38 Urine, Random Urine Culture - Final Pseudomonas aeruginosa 10/30/22 17:38 Urine, Clean Catch Legionella Antigen - Final 10/30/22 17:38 Urine, Clean Catch Streptococcus pneumoniae Antigen (M - Final 10/29/22 17:30 Mucosa - Nose Respiratory Panel (PCR) - Final 10/29/22 17:30 Nasal Secretion SARS-CoV-2 & FLU Antigen (Rapid) - Final Radiography Diagnostic Testing: Radiology Impression Thoracentesis Ultrasound 11/05/22 07:42 IMPRESSION: Ultrasound-guided right thoracentesis. Electronically Signed: Lázaro Archer MD at 9:15 EDT , Rhythm Strip Rhythm Strip: Sinus Rhythm Rate: 81 Ectopy: None Assessment & Plan Assessment/Plan (1) Non-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: (2) Osteomyelitis of toe of right foot: (3) Atherosclerosis of lower extremity with ulceration: PLAN: Plan Patient received vitamin K for coumadin reversal in prep for thoracentesis this morning. INR 1.7 today. Started heparin drip to bridge to procedure in light of his mechanical valve. Angiogram now scheduled for Tuesday morning. After procedures, will transition back to coumadin. Discussed angiogram with patient today, all of his questions and concerns were addressed, he remains agreeable to proceed. Will continue to monitor. Charges/Coding Visit Charges Inpatient E&M: 66251 Subs Hosp L2
[2022-11-05] MEDS: Juven (unflavored) Packet 1 PACKET PO ×2 (09:39→16:33)
[2022-11-05] MEDS: Ferrous Sulfate 325 MG Tablet PO (09:39)
[2022-11-05 09:44] LABS: Appearance/Body Fluid SL CLDY; Auto B Fluid Analyzer BKGD Ct COUNTS W/IN LIMITS (W/IN LIMITS); Color/Body Fluid YELLOW; Source- Body Fluid THORACENTESIS
[2022-11-05] MEDS: guaiFENesin 10 ML UDC (200MG/10ML) PO ×2 (09:44→16:41)
[2022-11-05] MEDS: Spironolactone 25 MG Tablet 50 MG PO (09:44)
[2022-11-05] MEDS: Acetaminophen 325 MG Tablet 650 MG PO ×2 (09:44→16:41)
--- NOTE | 2022-11-05 09:44 | PN.CARD_ITS ---
Documented by User: KEVIN Ba 11/05/22 12:31 Subjective Subjective Patient did undergo his thoracentesis this morning. He did have 1600 cc removed. He does feel that his breathing is improved. He does not have any chest discomfort. Objective Data Vital Signs: Vital Signs Temp Pulse Resp BP Pulse Ox O2 Del Method O2 Flow Rate 98.0 F 67 18 118/62 96 Room Air 2 11/05/22 09:33 11/05/22 09:33 11/05/22 09:33 11/05/22 09:33 11/05/22 09:33 11/05/22 09:33 11/04/22 07:00 FiO2 25 10/31/22 23:18 Oxygen Flow Rate (L/min) 2 Oxygen Delivery Method Room Air Weight: 236 lb 12.423 oz Body Mass Index (BMI) 33.0 Intake & Output: Intake and Output for Last 24 Hours 11/03/22 11/04/22 11/05/22 23:59 23:59 23:59 Intake Total 1240 / 1240 1260.5 / 1260.5 Output Total 450 / 600 1400 / 1400 400 / 400 Balance 790 / 640 -139.5 / -139.5 -400 / -400 Lab / Micro Data Result Diagrams: 11/05/22 Unknown 11/05/22 05:35 Labs: Laboratory Results - last 24 hr 11/04/22 11:14: POC Glucose 193 H 11/04/22 12:35: Vancomycin Trough 29.9 H 11/04/22 17:17: POC Glucose 168 H 11/04/22 20:38: POC Glucose 190 H 11/05/22 05:35: PT 19.4 H, INR 1.7 11/05/22 05:35: Sodium 134 L, Potassium 3.8, Chloride 104, Carbon Dioxide 26.0, Anion Gap 4 L, BUN 44 H, Creatinine 1.43 H, Estim Creat Clear Calc 51.93, Est GFR (MDRD) Af Amer 63, Est GFR (MDRD) Non-Af 52 L, BUN/Creatinine Ratio 30.8 H, Glucose 123 H, Calcium 8.1 L, Lactate Dehydrogenase 220, Total Protein 6.2 L, Globulin 3.5, Albumin/Globulin Ratio 0.8 L 11/05/22 05:35: Random Vancomycin 33.6 H 11/05/22 06:35: POC Glucose 124 H 11/05/22 09:00: Fluid WBC 0.155, Fluid Tot Cell Count 0.173, Fld Polynuclear WBCs # 0.005, Fld Polynuclear WBCs % 3.2, Fluid Mononuclear WBCs 0.150, Fld Mononuclear WBCs % 96.8 11/05/22 : WBC 4.2 L, RBC 3.79 L, Hgb 9.9 L, Hct 33.0 L, MCV 87.1, MCH 26.1 L, MCHC 30.0 L, RDW Std Deviation 69.6 H, RDW Coeff of Estrada 21.6 H, Plt Count 146 L, MPV 11.1, Immature Gran % (Auto) 0.500, Neut % (Auto) 57.0, Lymph % (Auto) 23.3, [place] % (Auto) 15.6 H, Eos % (Auto) 3.1, Baso % (Auto) 0.5, Absolute Neuts (auto) 2.4, Absolute Lymphs (auto) 0.97, Nucleated RBC % 0, Platelet Estimate SLT DEC, Anisocytosis 2+ Micro: Microbiology 11/02/22 23:30 Sputum, Expectorated/Coughed Gram Stain - Final 11/02/22 23:30 Sputum, Expectorated/Coughed Respiratory Culture - 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 10/29/22 19:20 Blood Culture (Wb) - Anticubital Right Blood Culture - Final No growth in 5 days. Rhythm Strip Rhythm Strip: Sinus Rhythm Rate: 81 Ectopy: None Cardiology Labs/Tests 11/05/22 05:35: PT 19.4 H, INR 1.7 11/05/22 05:35: Sodium 134 L, Potassium 3.8, Chloride 104, Carbon Dioxide 26.0, Anion Gap 4 L, BUN 44 H, Creatinine 1.43 H, Est GFR (MDRD) Af Amer 63, Est GFR (MDRD) Non-Af 52 L, BUN/Creatinine Ratio 30.8 H, Glucose 123 H, Calcium 8.1 L 11/05/22 : WBC 4.2 L, RBC 3.79 L, Hgb 9.9 L, Hct 33.0 L, MCV 87.1, MCH 26.1 L, MCHC 30.0 L, Plt Count 146 L, MPV 11.1, Immature Gran % (Auto) 0.500, Neut % (Auto) 57.0, Lymph % (Auto) 23.3, [place] % (Auto) 15.6 H, Eos % (Auto) 3.1, Baso % (Auto) 0.5, Absolute Neuts (auto) 2.4, Nucleated RBC % 0 ECHO: 10/29/2022 The estimated ejection fraction is 40-45 %. Normal-appearing bioprosthetic aortic valve In comparison to previous echo in September 22, 2021 Improvement in LV systolic function. Radiography Diagnostic Testing: Radiology Impression Thoracentesis Ultrasound 11/05/22 07:42 IMPRESSION: Ultrasound-guided right thoracentesis. Electronically Signed: Lázaro Archer MD at 9:15 EDT , Physical Exam Narrative Physical exam General: Alert, Oriented x3, Cooperative, obesity HEENT: Atraumatic, PERRLA, EOMI, Normocephalic Oral: Oral mucosa moist. Neck: Supple, No JVD, Negative Carotid Bruits Chest wall/lungs: I/E wheezing in lung bases. Patient has mid chest to epigastric ventral hernia. Seems portion of heart and bowel with bowel sounds. Chronic. Cardiovascular: Regular rate, Regular Rhythm, Normal S1, Normal S2, mechanical aortic valve sound. Abdomen: Bowel Sounds Present, Soft, Non Tender, with epigastric hernia. Does not seem obstructed. : No renal angle tenderness. No suprapubic tenderness. Extremities: trace edema, right leg cooler than left. Diminished pulses Skin: Bilateral feet ulcer. Musculoskeletal: ROM severely limited. Decreased mobility. Neurological: Cranial nerves II-XII grossly intact, Psych/Mental Status: Flat affect. 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 * Patient did undergo a thoracentesis today. He does feel that his shortness of breath has improved. We will continue to monitor. * He does have a mechanical valve, he has been placed on heparin in anticipation for upcoming vascular procedures. After procedures will need to restart coumadin. * Recommend continuation of his metoprolol, lisinopril, and atorvastatin. We will continue to monitor and follow-up clinically. Charges/Coding Visit Charges Inpatient E&M: 03805 Subs Hosp L2 Documented by User: Dr. 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 * Patient did undergo a thoracentesis today. He does feel that his shortness of breath has improved. We will continue to monitor. * He does have a mechanical valve, he has been placed on heparin in anticipation for upcoming vascular procedures. After procedures will need to restart coumadin. * Recommend continuation of his metoprolol, lisinopril, and atorvastatin. I independently reviewed all the record of this patient's examined the patient and I formulated cardiac care plan as per midlevel documentation We will continue to monitor and follow-up clinically.
[2022-11-05 09:45] LABS: Red Cell Count/Body Fluid 150 /mm3
[2022-11-05 10:01] LABS: Partial Thromboplast Time 36.8 Seconds (24.1-36.2)
[2022-11-05 10:07] LABS: Glucose, Body Fluid 151 mg/dL (40-70); LDH,Body Fluid 79 Units/l (Not Establ.); Protein, Body Fluid 2.7 g/dL (Not Establ.)
[2022-11-05 10:11] LABS: Lymphocytes 66 %; Macrophages 34 %
[2022-11-05 10:16] LABS: Body Fluid QC Type(s) BF4,BF5
[2022-11-05] MEDS: Insulin Glargine-YFGN 100 UNIT/ML Pen 15 UNIT SC (11:32)
[2022-11-05] MEDS: HEPARIN/D5w 25,000 UNITS 25,000 UNITS/250 ML IV.SOLN. 15 UNITS CONT INF (11:41)
[2022-11-05 12:30] LABS: Bedside Glucose 134 mg/dL (74-106)
--- NOTE | 2022-11-05 12:47 | PN_ITS ---
Objective Data Objective Data Vital Signs: Vital Signs Temp Pulse Resp BP Pulse Ox O2 Del Method O2 Flow Rate 98.0 F 68 23 H 118/62 96 Room Air 2 11/05/22 09:33 11/05/22 10:42 11/05/22 10:42 11/05/22 09:37 11/05/22 09:33 11/05/22 09:33 11/04/22 07:00 FiO2 25 10/31/22 23:18 Oxygen Flow Rate (L/min) 2 Oxygen Delivery Method [3] Room Air Oxygen Delivery Method [2] Room Air Oxygen Delivery Method [1 ( Room Air Initial Baseline)] Oxygen Delivery Method Room Air Weight: 107.4 kg Body Mass Index (BMI) 33.0 Intake & Output: Intake and Output for Last 24 Hours 11/03/22 11/04/22 11/05/22 23:59 23:59 23:59 Intake Total 1240 / 1240 1260.5 / 1260.5 Output Total 450 / 600 1400 / 1400 1999 Balance 790 / 640 -139.5 / -139.5 -1999 Lab / Micro Data Result Diagrams: 11/05/22 Unknown 11/05/22 05:35 Labs: Laboratory Results - last 24 hr 11/04/22 12:35: Vancomycin Trough 29.9 H 11/04/22 17:17: POC Glucose 168 H 11/04/22 20:38: POC Glucose 190 H 11/05/22 05:35: PT 19.4 H, INR 1.7 11/05/22 05:35: Sodium 134 L, Potassium 3.8, Chloride 104, Carbon Dioxide 26.0, Anion Gap 4 L, BUN 44 H, Creatinine 1.43 H, Estim Creat Clear Calc 51.93, Est GFR (MDRD) Af Amer 63, Est GFR (MDRD) Non-Af 52 L, BUN/Creatinine Ratio 30.8 H, Glucose 123 H, Calcium 8.1 L, Lactate Dehydrogenase 220, Total Protein 6.2 L, Globulin 3.5, Albumin/Globulin Ratio 0.8 L 11/05/22 05:35: Random Vancomycin 33.6 H 11/05/22 06:35: POC Glucose 124 H 11/05/22 08:00: Fluid Glucose 151 H, Fluid Total Protein 2.7, Fluid LDH 79 11/05/22 09:00: Fluid Source THORACENTESIS, Fluid Color YELLOW, Fluid Appearance SL CLDY, Fluid WBC 0.155, Fluid RBC 150, Fluid Tot Cell Count 0.173, Fld Poly nuclear WBCs # 0.005, Fld Polynuclear WBCs % 3.2, Fluid Mononuclear WBCs 0.150, Fld Mononuclear WBCs % 96.8, Fluid Lymphocytes 66, Fluid Macrophages 34, Fl Pathologist Comment May follow, Fluid Comment 2 SEE COMMENT 11/05/22 09:27: APTT 36.8 H 11/05/22 11:30: POC Glucose 134 H 11/05/22 : WBC 4.2 L, RBC 3.79 L, Hgb 9.9 L, Hct 33.0 L, MCV 87.1, MCH 26.1 L, M CHC 30.0 L, RDW Std Deviation 69.6 H, RDW Coeff of [place]strda[place] 21.6 H, Plt Count 146 L, MPV 11.1, Immature Gran % (Auto) 0.500, Neut % (Auto) 57.0, Lymph % (Auto) 23.3, [place] % (Auto) 15.6 H, Eos % (Auto) 3.1, Baso % (Auto) 0.5, Absolute Neuts (auto) 2.4, Absolute Lymphs (auto) 0.97, Nucleated RBC % 0, Platelet Estimate SLT DEC, Anisocytosis 2+ Micro: Microbiology 11/02/22 23:30 Sputum, Expectorated/Coughed Gram Stain - Final 11/02/22 23:30 Sputum, Expectorated/Coughed Respiratory Culture - Final Proteus mirabilis 10/29/22 19:29 Blood Culture (Wb) - Right Hand Blood Culture - Final No growth in 5 days. 10/29/22 19:20 Blood Culture (Wb) - Anticubital Right Blood Culture - Final No growth in 5 days. 10/30/22 17:38 Urine, Random Urine Culture - Final Pseudomonas aeruginosa 10/30/22 17:38 Urine, Clean Catch Legionella Antigen - Final 10/30/22 17:38 Urine, Clean Catch Streptococcus pneumoniae Antigen (M - Final 10/29/22 17:30 Mucosa - Nose Respiratory Panel (PCR) - Final 10/29/22 17:30 Nasal Secretion SARS-CoV-2 & FLU Antigen (Rapid) - Final Radiography Diagnostic Testing: Radiology Impression Thoracentesis Ultrasound 11/05/22 07:42 IMPRESSION: Ultrasound-guided right thoracentesis. Electronically Signed: Lázaro Archer MD at 9:15 EDT , Chest X-Ray 11/05/22 08:40 IMPRESSION: Status post right thoracentesis. There is no evidence of pneumothorax. Small residual pleural parenchymal changes at the right lung base. Electronically Signed: Lázaro Archer MD at 9:44 EDT , Rhythm Strip Rhythm Strip: Sinus Rhythm Rate: 81 Ectopy: None Physical Exam Narrative Right 2nd toe with dorsal PIPJ chronic ulcer down to exposed bone - chronic and stable. Distal left 2nd toe ulceration down to subcutaneous tissue - chronic and stable as well.No evidence of acute ischemia to the foot bilateral, no new areas of wounds bilateral foot or ankle. Const alert, oriented x3 and no apparent distress Assessment & Plan Assessment/Plan (1) Non-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: (2) Type 2 diabetes mellitus: (3) Peripheral vascular occlusive disease: (4) Osteomyelitis of toe of right foot: PLAN: Plan Reviewed diagnostic data. Clinically there is osteomyelitis right 2nd toe. Wound left 2nd toe as well. Wounds stable. Reviewed cultures of ulceration - MRSA and Kocuria Kristinae - patient is on antibiotic therapy per ID service at this time. Vascular surgery following patient, and waiting vascular procedure prior to right 2nd toe amputation - appears this will likely be next week, awaiting INR improvement. Right 2nd toe stable at this time. Left 2nd toe is stable as well. Continue with local wound care. Podiatry will continue to follow every 2-3 days at this point.
--- NOTE | 2022-11-05 12:59 | PN.HOSP_ITS ---
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 (10/29/22) Peripheral vascular disease, unspecified (10/29/22) Chronic obstructive pulmonary disease, unspecified (10/29/22) Pleural effusion, not elsewhere classified (10/29/22) Acute respiratory failure with hypercapnia (10/29/22) Non-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 (10/29/22) Non-pressure chronic ulcer of other part of left foot with fat layer exposed (10/29/22) Osteomyelitis, unspecified (10/29/22) Other intraoperative and postprocedural complications and disorders of the mus culoskeletal system (10/29/22) Difficulty in walking, not elsewhere classified (10/29/22) Presence of aortocoronary bypass graft (10/29/22) Presence of prosthetic heart valve (10/29/22) Subjective Subjective Patient had thoracocentesis in the morning.Shortness of breath better. Objective Data Objective Data Vital Signs: Vital Signs Temp Pulse Resp BP Pulse Ox O2 Del Method O2 Flow Rate 98.0 F 68 23 H 118/62 96 Room Air 2 11/05/22 09:33 11/05/22 10:42 11/05/22 10:42 11/05/22 09:37 11/05/22 09:33 11/05/22 09:33 11/04/22 07:00 FiO2 25 10/31/22 23:18 Oxygen Flow Rate (L/min) 2 Oxygen Delivery Method [3] Room Air Oxygen Delivery Method [2] Room Air Oxygen Delivery Method [1 ( Room Air Initial Baseline)] Oxygen Delivery Method Room Air Weight: 236 lb 12.423 oz Body Mass Index (BMI) 33.0 Intake & Output: Intake and Output for Last 24 Hours 11/03/22 11/04/22 11/05/22 23:59 23:59 23:59 Intake Total 1240 / 1240 1260.5 / 1260.5 Output Total 450 / 600 1400 / 1400 1999 Balance 790 / 640 -139.5 / -139.5 -1999 Lab / Micro Data Result Diagrams: 11/05/22 Unknown 11/05/22 05:35 Labs: Laboratory Results - last 24 hr 11/04/22 12:35: Vancomycin Trough 29.9 H 11/04/22 17:17: POC Glucose 168 H 11/04/22 20:38: POC Glucose 190 H 11/05/22 05:35: PT 19.4 H, INR 1.7 11/05/22 05:35: Sodium 134 L, Potassium 3.8, Chloride 104, Carbon Dioxide 26.0, Anion Gap 4 L, BUN 44 H, Creatinine 1.43 H, Estim Creat Clear Calc 51.93, Est GFR (MDRD) Af Amer 63, Est GFR (MDRD) Non-Af 52 L, BUN/Creatinine Ratio 30.8 H, Glucose 123 H, Calcium 8.1 L, Lactate Dehydrogenase 220, Total Protein 6.2 L, Globulin 3.5, Albumin/Globulin Ratio 0.8 L 11/05/22 05:35: Random Vancomycin 33.6 H 11/05/22 06:35: POC Glucose 124 H 11/05/22 08:00: Fluid Glucose 151 H, Fluid Total Protein 2.7, Fluid LDH 79 11/05/22 09:00: Fluid Source THORACENTESIS, Fluid Color YELLOW, Fluid Appearance SL CLDY, Fluid WBC 0.155, Fluid RBC 150, Fluid Tot Cell Count 0.173, Fld Polynuclear WBCs # 0.005, Fld Polynuclear WBCs % 3.2, Fluid Mononuclear WBCs 0.150, Fld Mononuclear WBCs % 96.8, Fluid Lymphocytes 66, Fluid Macrophages 34, Fl Pathologist Comment May follow, Fluid Comment 2 SEE COMMENT 11/05/22 09:27: APTT 36.8 H 11/05/22 11:30: POC Glucose 134 H 11/05/22 : WBC 4.2 L, RBC 3.79 L, Hgb 9.9 L, Hct 33.0 L, MCV 87.1, MCH 26.1 L, MCHC 30.0 L, RDW Std Deviation 69.6 H, RDW Coeff of Estrada 21.6 H, Plt Count 146 L, MPV 11.1, Immature Gran % (Auto) 0.500, Neut % (Auto) 57.0, Lymph % (Auto) 23.3, [place] % (Auto) 15.6 H, Eos % (Auto) 3.1, Baso % (Auto) 0.5, Absolute Neuts (auto) 2.4, Absolute Lymphs (auto) 0.97, Nucleated RBC % 0, Platelet Estimate SLT DEC, Anisocytosis 2+ Micro: Microbiology 11/02/22 23:30 Sputum, Expectorated/Coughed Gram Stain - Final 11/02/22 23:30 Sputum, Expectorated/Coughed Respiratory Culture - Final Proteus mirabilis 10/29/22 19:29 Blood Culture (Wb) - Right Hand Blood Culture - Final No growth in 5 days. 10/29/22 19:20 Blood Culture (Wb) - Anticubital Right Blood Culture - Final No growth in 5 days. 10/30/22 17:38 Urine, Random Urine Culture - Final Pseudomonas aeruginosa 10/30/22 17:38 Urine, Clean Catch Legionella Antigen - Final 10/30/22 17:38 Urine, Clean Catch Streptococcus pneumoniae Antigen (M - Final 10/29/22 17:30 Mucosa - Nose Respiratory Panel (PCR) - Final 10/29/22 17:30 Nasal Secretion SARS-CoV-2 & FLU Antigen (Rapid) - Final Radiography Diagnostic Testing: Radiology Impression Thoracentesis Ultrasound 11/05/22 07:42 IMPRESSION: Ultrasound-guided right thoracentesis. Electronically Signed: Lázaro Archer MD at 9:15 EDT , Chest X-Ray 11/05/22 08:40 IMPRESSION: Status post right thoracentesis. There is no evidence of pneumothorax. Small residual pleural parenchymal changes at the right lung base. Electronically Signed: Lázaro Archer MD at 9:44 EDT , Rhythm Strip Rhythm Strip: Sinus Rhythm Rate: 81 Ectopy: None Physical Exam Narrative Seen and examined. Shortness of breath better after thoracocentesis. Bilateral feet ulcer. Vascular surgery consulted by food equipment service technician. INR 1.7. Started on IV heparin drip. Physical exam General: Alert, Oriented x3, Cooperative, obesity grade 32.7 kg/m?. HEENT: Atraumatic, PERRLA, EOMI, Normocephalic Oral: Oral mucosa moist. No Gingival or Mucosal Lesions/ Ulcerations Neck: Supple, No JVD, Negative Carotid Bruits Chest wall/lungs: Air entry improved on right lung. No crepitation/rhonchi. Patient has mid chest to epigastric ventral hernia, chronic Cardiovascular: Regular rate, Regular Rhythm, Normal S1, Normal S2, mechanical aortic valve sound. Abdomen: Bowel Sounds Present, Soft, Non Tender, with epigastric hernia. Does not seem obstructed. : No renal angle tenderness. No suprapubic tenderness. Extremities: 1+ bilateral pitting edema, Capillary Refill Less than 3 Seconds Skin: Bilateral feet ulcer. Right second toe ulcer nonhealing, seems nonviable. Right first toe amputated. Left toe ulcer. Musculoskeletal: No Tenderness to Palpation of Joints or Extremities. ROM severely limited. Decreased mobility. Neurological: Cranial nerves II-XII grossly intact, DTR 2+/4, muscle strength 4+/5 at knees and hip joints. Psych/Mental Status: Flat affect. Assessment & Plan Assessment/Plan (1) Acute hypercapnic respiratory failure: (2) Encephalopathy acute: (3) Chronic combined systolic and diastolic CHF (congestive heart failure): (4) Type 2 diabetes mellitus: (5) Atherosclerosis of lower extremity with ulceration: PLAN: Plan 1. Acute hypercapnic respiratory failure. * -AECHF vs AECOPD vs R pleural effusion, less likely PNA given wbc WNL and no left shift * -CXR remonstrated right pleural effusion with increased interstitial lung markings * -ABG with pH of 7.34 with a PO2 of 95 and a PCO2 of 58.3 patient placed on BiPAP * -BNP 512, has had higher in the past but does have persistent R pleural effusion and sounds more congested * -40iv lasix qday * Heart failure core measures including intake and output, fluid restriction les s than 1500 mL, daily weight monitoring, kidney and electrolytes monitoring * On BiPAP. * -COVID, respiratory panel and urinary antigens are negative. 11/01: . Continue diuresis. EF 40 to 45% which report identifies as slightly improved LV systolic dysfunction from September 22, 2021. Repeat chest x-ray shows large right pleural effusion with ventral hernia 11/02: Patient had 400 mill urine output over last 2 days. Still short of breath probably due to large right pleural effusion. Discussed with the consulting utility forester and IR, Dr. Starkey. Ultrasound-guided thoracocentesis ordered and plan for thoracocentesis in a.m. if INR permits 11/03: Positive fluid balance about 2 L. 450 mill urine output yesterday. Vitamin K given in order to correct INR. Thoracocentesis ordered for tomorrow AM. On Lasix 40 IV daily. Spironolactone increased to 50 mg daily. Discussed with the consulting utility forester. 11/05: Increase in creatinine from 0.6-1.43 consistent with ZOFIA, prerenal due to fluid shift from Lasix and thoracocentesis. Hold Lasix. 2. #R foot wound w/ Wound cx positive for MRSA and kocuria kristinae -11/01: Patient was evaluated by food equipment service technician and had bedside debridement. Concern of potential osteomyelitis and if that may be will need amputation. ESR mildly elevated Today. Patient on IV vancomycin. Prelim urine culture shows GNR possible Pseudomonas. Blood culture negative for more than 48 hours. Urine culture shows GNR possible Pseudomonas [id number] colonies. It is in nonpathologic range and therefore will leave on ID. 11/02: Vascular surgery consulted.Discussed with the [place] vascular PA. INR is 3.0 therefore warfarin is held. If INR is 2 by we will proceed with angio if not we will plan for angio early next week instead. Once INR is 2 we will start on heparin drip to bridge for procedure. Patient is high risk given for small procedure to open because of chronic cardiac and respiratory conditions. 11/03: INR 3.2. Last dose of warfarin was on 11/01. Monitor INR daily. 11/05: Sputum culture growing Proteus. Started on Unasyn. Dr. Kendrick May will not be able to do angiogram before Tuesday. 3. Acute exacerbation of chronic systolic and diastolic heart failure * -Last echocardiogram 09/22/2021 showed EF of 30% with stage III diastolic dysfunction 11/02: Repeat Echo reported EF 40 to 45% with normal appearing bioprosthetic aortic valve. In comparison to echo September 22, improvement in LV systolic function. Toprol-XL increased to 100 mg daily. 10/19/18: Rejoiner consulted. Portable chest x-ray ordered . Patient has large right pleural effusion. Had right-sided thoracocentesis, 1850 mL fluid drained in July 2022. Patient is not having good diuresis with Lasix. toe amputation. 4. #hx R pleural effusion * -Low-dose lung CT 09/29/2022 with large right pleural effusion and associated atelectasis as well as a midline ventral hernia containing fat and bowel loops with diffuse induration of subcutaneous fat that had suggested anasarca. * Repeat chest x-ray unchanged as mentioned above 11/05: Patient had 1600 mL thoracocentesis, Araseli-colored fluid. As per lights criteria fluid analysis consistent with transudate. Cell differential shows mainly mononuclear cells. 96.8%. Fluid culture pending. #Hx of underlying lung dz * -Had presumed to have COPD but recent PFTs 10/27 actually with moderately severe restrictive ventilatory defect with a symmetric reduction diffusion capacity and possible some stigmata of concomitant small airway disease which is less consistent with COPD * -Will need to continue following with pulm #Acute encephalopathy, likely metabolic encephalopathy from hypercapnia. -11/01: Waxing and waning course. But today patient seems in lucid and normal behavior.on schedule melatonin nightly, small dose of Risperdal 0.25 mg twice daily if unsuccessful #Hyperkalemia * -Unclear etiology- resolved after lasix and recheck * -Receiving Lasix * -EKG heart rate 81 bpm and normal sinus rhythm with nonspecific T wave changes but no peaked T waves * -Hold home potassium supplementation #?History of DVT * -Previous documentation of DVT in old note but not documented elsewhere, will try to clarify * -Chronically on Coumadin #Coronary disease status post CABG 04/2020/mechanical [facility] AVR/PAD s/p fempop bypass * -Cont asa, statin * -Followed by vascular on outpatient basis, has had previous intervention for breast peripheral artery disease * -INR 3.3, continue coumadin, daily INRs * -If subtherapeutic will need bridged with heparin given manager mechanical maintenance valve -10/31: INR 2.9. Has mechanical valve, will need daily INRs and close monitoring 11/05: INR is 1.7. Patient is started on IV heparin drip #Type 2 diabetes mellitus * -Glucose checks and sliding scale insulin * -Long-acting insulin #DVT ppx: Therapeutic on Coumadin Clinical Impression(s) from Imaging Studies Chest X-Ray 10/29/22 15:00 IMPRESSION: There is a right pleural effusion. Epigastric ventral hernia visualized extending along the right para midline. The hernia likely contains colon. Electronically Signed: Carson Morris MD at 15:30 EDT , Echocardiogram 10/29/22 16:25 Interpretation Summary The estimated ejection fraction is 40-45 %. Normal-appearing bioprosthetic aortic valve In comparison to previous echo in September 22, 2021 Improvement in LV systolic function. Ordering Physician: Ann Marie Cox Referring Physician: Suarabh Hernandez Chi Performed By: Mariam Laboy, HUMACS, RVT Chest X-Ray 10/30/22 05:05 IMPRESSION: 1. Large ventral hernia again seen overlying the right side of the chest. 2. Large right pleural effusion similar to the prior exam. Electronically Signed: Jose Cruz English MD at 7:49 EDT , Charges/Coding Visit Charges Inpatient E&M: 40619 Subs Hosp L2
--- NOTE | 2022-11-05 14:33 | WOUNDNOTE ---
Dr Lozano had been in to see patient today.
[2022-11-05] MEDS: Insulin Lispro 100 UNIT/ML INSULN.PEN SC ×2 (16:33→21:00)
[2022-11-05 17:36] LABS: Bedside Glucose 150 mg/dL (74-106)
[2022-11-05 18:19] LABS: Partial Thromboplast Time 150.5 Seconds (24.1-36.2)
[2022-11-05] MEDS: 0.9% Saline Lock 10 ML Syringe IV (20:46)
[2022-11-05] MEDS: Atorvastatin Calcium 40 MG Tablet PO (20:48)
[2022-11-05] MEDS: MELATONIN 3 MG TABLET PO (20:48)
[2022-11-05 23:46] LABS: Bedside Glucose 160 mg/dL (74-106)
[2022-11-06] VITALS (10 sets, daily range): BP systolic 106–130; BP diastolic 58–66; PULSE 64–77; RESP 16–28; TEMP 36.3–36.8; O2SAT 92–100; BMI 33.0
[2022-11-06 03:07] LABS: Partial Thromboplast Time 107.8 Seconds (24.1-36.2)
[2022-11-06] MEDS: Ipratropium/Albuterol Sulfate 3 ML AMPUL.NEB INHALATION ×5 (03:35→19:10)
--- NOTE | 2022-11-06 05:28 | EKG12_ITS ---
Test Reason : CP Blood Pressure : / mmHG Vent. Rate : 064 BPM Atrial Rate : 064 BPM P-R Int : 152 ms QRS Dur : 098 ms QT Int : 412 ms P-R-T Axes : -08 040 -50 degrees QTc Int : 425 ms Normal sinus rhythm Low voltage QRS Cannot rule out Inferior infarct , age undetermined Cannot rule out Anterior infarct , age undetermined Abnormal ECG When compared with ECG of 29-OCT-2022 13:35, No significant change was found Confirmed by EVARISTO CHAPA, JORDAN ([id number]), news assignment editor STANISLAV OVIEDO ([id number]) on 11/09/2022 10:29:47 AM Referred By: GERSON Confirmed By:JORDAN LOERA MD
[2022-11-06 06:18] LABS: Absolute Lymphocyte Count 0.85 X10^3/uL (0.83-4.51); Basophil# 0.03 X10^3/uL; Basophil% 0.9 % (0-1); Eosinophil# 0.08 X10^3/uL; Eosinophils% 2.3 % (0-5); Hematocrit 31.5 % (40-54); Hemoglobin 9.5 g/dL (13.0-16.5); Lymphocyte # 0.85 X10^3/ul (0.83-4.51); Lymphocyte % 24.2 % (19-41); Mean Corp Hgb Conc 30.2 g/dL (32-36); Mean Corpuscular Hgb 25.7 pg (27.0-32.0); Mean Corpuscular Volume 85.4 fL (80-94); Monocyte# 0.52 X10^3/uL; Monocyte% 14.8 % (0-10); NRBC Flagged by Analyzer 0 % (0-5); Neutrophil # 2.01 X10^3/uL (2.7-7.7); Neutrophil % 57.2 % (47-70); POSITIVE MORPHOLOGY YES; Platelet Count 129 K/mm3 (150-450); RBC Distribution Width CV 21.4 % (11.6-14.6); RBC Distribution Width SD 67.4 fl (35.1-43.9); Red Blood Count 3.69 M/mm3 (4.6-6.2); White Blood Count 3.5 K/mm3 (4.4-11.0)
[2022-11-06 06:42] LABS: International Normalized Ratio 1.5; Prothrombin Time (Protime)PT. 18.1 SECONDS (11.7-14.9)
[2022-11-06] MEDS: Insulin Lispro 100 UNIT/ML INSULN.PEN SC ×3 (06:46→21:33)
[2022-11-06 06:59] LABS: Anion Gap 4 (5-15); BUN 53 mg/dL (7-18); BUN/Creat Ratio 33.5 RATIO (10-20); Calcium,Total 8.1 mg/dL (8.5-10.1); Chloride 104 mmol/L (98-107); Creatinine, Serum 1.58 mg/dL (0.70-1.30); EST Glomerular Filtration Rate 46 mL/min (>60); Est Glom Filt Rate - Afr Amer 56 mL/min (>60); Glucose 186 mg/dL (74-106); Potassium 3.6 mmol/L (3.5-5.1); Sodium Level 135 mmol/L (136-145)
[2022-11-06 07:02] LABS: Vancomycin, Random Level 28.3 ug/mL (0.0-15.0)
[2022-11-06 07:11] LABS: Differential Indicated SCAN CRITERIA MET
--- NOTE | 2022-11-06 07:18 | PCM.RX.CS ---
Consult Pharmacy has been consulted to manage selected antiobiotic: Vancomycin Type of Consult: Follow-up Labs: Sodium 135 mmol/L (136-145) L 11/06/22 06:02 Potassium 3.6 mmol/L (3.5-5.1) 11/06/22 06:02 Chloride 104 mmol/L (98-107) 11/06/22 06:02 Carbon Dioxide 27.0 mmol/L (21.0-32.0) 11/06/22 06:02 Anion Gap 4 (5-15) L 11/06/22 06:02 BUN 53 mg/dL (7-18) H 11/06/22 06:02 Creatinine 1.58 mg/dL (0.70-1.30) H 11/06/22 06:02 Est GFR (MDRD) Af Amer 56 mL/min (>60) L 11/06/22 06:02 Est GFR (MDRD) Non-Af 46 mL/min (>60) L 11/06/22 06:02 BUN/Creatinine Ratio 33.5 RATIO (10-20) H 11/06/22 06:02 Glucose 186 mg/dL (74-106) H 11/06/22 06:02 Vancomycin Trough 29.9 ug/mL (5.0-15.0) H 11/04/22 12:35 Random Vancomycin 28.3 ug/mL (0.0-15.0) H 11/06/22 06:02 Microbiology: Microbiology 11/05/22 09:00 Fluid - Thoracentesis Fluid Gram Stain - Final 11/02/22 23:30 Sputum, Expectorated/Coughed Gram Stain - Final 11/02/22 23:30 Sputum, Expectorated/Coughed Respiratory Culture - Final Proteus mirabilis 10/29/22 19:29 Blood Culture (Wb) - Right Hand Blood Culture - Final No growth in 5 days. 10/29/22 19:20 Blood Culture (Wb) - Anticubital Right Blood Culture - Final No growth in 5 days. 10/30/22 17:38 Urine, Random Urine Culture - Final Pseudomonas aeruginosa 10/30/22 17:38 Urine, Clean Catch Legionella Antigen - Final 10/30/22 17:38 Urine, Clean Catch Streptococcus pneumoniae Antigen (M - Final 10/29/22 17:30 Mucosa - Nose Respiratory Panel (PCR) - Final 10/29/22 17:30 Nasal Secretion SARS-CoV-2 & FLU Antigen (Rapid) - Final Weight used for dosin.5 kg Estimated Creatinine Clearance: 55 ML/MIN Goal Trough: 15-20 mcg/mL Pharmacy Plan for Drug Dosing: The vanc random level drawn at 06:02 today was 28.3. Still above goal range so will continue to hold dosing. Of note, the patient's SCr increased to 1.58 today and has approximately doubled since 3 days ago. Will check another random level tomorrow morning. The patient's CrCl of 55 ml/min was calculated using an adjusted body weight. Pharmacy Service will continue to monitor and adjust dosing as required. Follow-Up Labs: Trough Vancomycin - random Labs to be done on [date and time ordered]: 11/07/22 06:00
[2022-11-06 07:27] LABS: Anisocytosis 1+; Differential Comment SCANNED; Hypochromasia RARE
[2022-11-06 07:30] LABS: Bedside Glucose 175 mg/dL (74-106)
[2022-11-06] MEDS: HEPARIN/D5w 25,000 UNITS 25,000 UNITS/250 ML IV.SOLN. 9 UNITS CONT INF (09:42)
[2022-11-06] MEDS: Juven (unflavored) Packet 1 PACKET PO ×2 (09:43→16:21)
[2022-11-06] MEDS: Ferrous Sulfate 325 MG Tablet PO (09:43)
[2022-11-06] MEDS: Insulin Glargine-YFGN 100 UNIT/ML Pen 15 UNIT SC (09:44)
[2022-11-06] MEDS: Spironolactone 25 MG Tablet 50 MG PO (09:44)
[2022-11-06] MEDS: Lisinopril 5 MG Tablet PO (09:45)
[2022-11-06] MEDS: Metoprolol(XL)Succ 100 MG Tablet PO (09:45)
--- NOTE | 2022-11-06 10:23 | PN.HOSP_ITS ---
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 (10/29/22) Peripheral vascular disease, unspecified (10/29/22) Chronic obstructive pulmonary disease, unspecified (10/29/22) Pleural effusion, not elsewhere classified (10/29/22) Acute respiratory failure with hypercapnia (10/29/22) Non-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 (10/29/22) Non-pressure chronic ulcer of other part of left foot with fat layer exposed (10/29/22) Osteomyelitis, unspecified (10/29/22) Other intraoperative and postprocedural complications and disorders of the mus culoskeletal system (10/29/22) Difficulty in walking, not elsewhere classified (10/29/22) Presence of aortocoronary bypass graft (10/29/22) Presence of prosthetic heart valve (10/29/22) Subjective Subjective Follow-up for osteomyelitis of right foot toe Objective Data Objective Data Vital Signs: Vital Signs Temp Pulse Resp BP Pulse Ox O2 Del Method O2 Flow Rate 97.4 F L 65 24 H 106/66 92 Room Air 2 11/06/22 05:12 11/06/22 09:45 11/06/22 07:04 11/06/22 05:12 11/06/22 07:04 11/06/22 07:04 11/04/22 07:00 FiO2 25 10/31/22 23:18 Oxygen Flow Rate (L/min) 2 Oxygen Delivery Method [3] Room Air Oxygen Delivery Method [2] Room Air Oxygen Delivery Method [1 ( Room Air Initial Baseline)] Oxygen Delivery Method Room Air Weight: 236 lb 15.951 oz Body Mass Index (BMI) 33.0 Intake & Output: Intake and Output for Last 24 Hours 11/04/22 11/05/22 11/06/22 23:59 23:59 23:59 Intake Total 1260.5 / 1260.5 1008.75 / 1008.75 231.05 / 231.05 Output Total 1400 / 1400 3300 / 3300 350 / 350 Balance -139.5 / -139.5 -2291.25 / -2291.25 -118.95 / -118.95 Lab / Micro Data Result Diagrams: 11/06/22 06:02 11/06/22 06:02 Labs: Laboratory Results - last 24 hr 11/05/22 11:30: POC Glucose 134 H 11/05/22 16:32: POC Glucose 150 H 11/05/22 17:40: APTT 150.5 H* 11/05/22 20:58: POC Glucose 160 H 11/06/22 02:25: APTT 107.8 H* 11/06/22 06:02: PT 18.1 H, INR 1.5 11/06/22 06:02: WBC 3.5 L, RBC 3.69 L, Hgb 9.5 L, Hct 31.5 L, MCV 85.4, MCH 25.7 L, MCHC 30.2 L, RDW Std Deviation 67.4 H, RDW Coeff of Estrada 21.4 H, Plt Count 129 L, MPV 10.0, Immature Gran % (Auto) 0.600, Neut % (Auto) 57.2, Lymph % (Auto) 24.2, [place] % (Auto) 14.8 H, Eos % (Auto) 2.3, Baso % (Auto) 0.9, Absolute Neuts (auto) 2.0, Absolute Lymphs (auto) 0.85, Nucleated RBC % 0, Differential Comment SCANNED, Hypochromasia RARE, Anisocytosis 1+ 11/06/22 06:02: Sodium 135 L, Potassium 3.6, Chloride 104, Carbon Dioxide 27.0, Anion Gap 4 L, BUN 53 H, Creatinine 1.58 H, Estim Creat Clear Calc 47.00, Est GFR (MDRD) Af Amer 56 L, Est GFR (MDRD) Non-Af 46 L, BUN/Creatinine Ratio 33.5 H , Glucose 186 H, Calcium 8.1 L 11/06/22 06:02: Random Vancomycin 28.3 H 11/06/22 06:44: POC Glucose 175 H Micro: Microbiology 11/05/22 09:00 Fluid - Thoracentesis Fluid Gram Stain - Final 11/05/22 09:00 Fluid - Thoracentesis Fluid Body Fluid Culture - Preliminary No growth-Final to follow 11/02/22 23:30 Sputum, Expectorated/Coughed Gram Stain - Final 11/02/22 23:30 Sputum, Expectorated/Coughed Respiratory Culture - Final Proteus mirabilis 10/29/22 19:29 Blood Culture (Wb) - Right Hand Blood Culture - Final No growth in 5 days. 10/29/22 19:20 Blood Culture (Wb) - Anticubital Right Blood Culture - Final No growth in 5 days. 10/30/22 17:38 Urine, Random Urine Culture - Final Pseudomonas aeruginosa 10/30/22 17:38 Urine, Clean Catch Legionella Antigen - Final 10/30/22 17:38 Urine, Clean Catch Streptococcus pneumoniae Antigen (M - Final 10/29/22 17:30 Mucosa - Nose Respiratory Panel (PCR) - Final 10/29/22 17:30 Nasal Secretion SARS-CoV-2 & FLU Antigen (Rapid) - Final Rhythm Strip Rhythm Strip: Sinus Rhythm Rate: 81 Ectopy: None Physical Exam Narrative Seen and examined. Shortness of breath better after thoracocentesis. Bilateral feet ulcer. Vascular surgery consulted by water and sewer systems supervisor. Patient had short duration of shortness of breath last night otherwise doing good. Started on IV heparin drip. Physical exam General: Alert, Oriented x3, Cooperative, obesity grade 32.7 kg/m?. HEENT: Atraumatic, PERRLA, EOMI, Normocephalic Oral: Oral mucosa moist. No Gingival or Mucosal Lesions/ Ulcerations Neck: Supple, No JVD, Negative Carotid Bruits Chest wall/lungs: Air entry improved on right lung. No crepitation/rhonchi. Patient has mid chest to epigastric ventral hernia, chronic Cardiovascular: Regular rate, Regular Rhythm, Normal S1, Normal S2, mechanical a ortic valve sound. Abdomen: Bowel Sounds Present, Soft, Non Tender, with epigastric hernia. Does not seem obstructed. : No renal angle tenderness. No suprapubic tenderness. Extremities: 1+ bilateral pitting edema, Capillary Refill Less than 3 Seconds Skin: Bilateral feet ulcer. Right second toe ulcer with exposed bone nonhealing, seems nonviable. Right first toe amputated. Left second toe with chronic ulcer to subcutaneous tissue. Musculoskeletal: No Tenderness to Palpation of Joints or Extremities. ROM severely limited. Decreased mobility. Neurological: Cranial nerves II-XII grossly intact, DTR 2+/4, muscle strength 4+/5 at knees and hip joints. Psych/Mental Status: Flat affect. Assessment & Plan Assessment/Plan (1) Acute hypercapnic respiratory failure: (2) Encephalopathy acute: (3) Chronic combined systolic and diastolic CHF (congestive heart failure): (4) Type 2 diabetes mellitus: (5) Atherosclerosis of lower extremity with ulceration: PLAN: Plan 1. Acute hypercapnic respiratory failure. * -AECHF vs AECOPD vs R pleural effusion, less likely PNA given wbc WNL and no left shift * -CXR remonstrated right pleural effusion with increased interstitial lung markings * -ABG with pH of 7.34 with a PO2 of 95 and a PCO2 of 58.3 patient placed on BiPAP * -BNP 512, has had higher in the past but does have persistent R pleural effusion and sounds more congested * -40iv lasix qday * Heart failure core measures including intake and output, fluid restriction less than 1500 mL, daily weight monitoring, kidney and electrolytes monitoring * On BiPAP. * -COVID, respiratory panel and urinary antigens are negative. 11/01: . Continue diuresis. EF 40 to 45% which report identifies as slightly improved LV systolic dysfunction from September 22, 2021. Repeat chest x-ray shows large right pleural effusion with ventral hernia 11/02: Patient had 400 mill urine output over last 2 days. Still short of breath probably due to large right pleural effusion. Discussed with the isotope hydrologist and IR, Dr. Starkey. Ultrasound-guided thoracocentesis ordered and plan for thoracocentesis in a.m. if INR permits 11/03: Positive fluid balance about 2 L. 450 mill urine output yesterday. Vitamin K given in order to correct INR. Thoracocentesis ordered for tomorrow AM. On Lasix 40 IV daily. Spironolactone increased to 50 mg daily. Discussed with the isotope hydrologist. 11/05: Increase in creatinine from 0.6-1.43 consistent with ZOFIA, prerenal due to fluid shift from Lasix and thoracocentesis. Hold Lasix. 11/06: Continue holding furosemide. Continue BiPAP support at night. 2. Perioperative management of Right second toe nonhealing ulcer, Necrosis of bone/chronic osteomyelitis and left second toe subcutaneous ulcer wound cx positive for MRSA and kocuria kristinae -11/01: Patient was evaluated by water and sewer systems supervisor and had bedside debridement. Concern of potential osteomyelitis and if that may be will need amputation. ESR mildly elevated Today. Patient on IV vancomycin. Prelim urine culture shows GNR possible Pseudomonas. Blood culture negative for more than 48 hours. Urine culture darrell ws GNR possible Pseudomonas [id number] colonies. It is in nonpathologic range and therefore will leave on ID. 11/02: Vascular surgery consulted.Discussed with the [place] vascular PA. INR is 3.0 therefore warfarin is held. If INR is 2 by we will proceed with angio if not we will plan for angio early next week instead. Once INR is 2 we will start on heparin drip to bridge for procedure. Patient is high risk given for small procedure to open because of chronic cardiac and respiratory conditions. 11/03: INR 3.2. Last dose of warfarin was on 11/01. Monitor INR daily. 11/05: Sputum culture growing Proteus. Started on Unasyn. Dr. Kendrick May will not be able to do angiogram before Tuesday. 11/06: Discussed with Dr. Lozano. Dr. May said the surgical wound will not heal until he do angiogram. He might need dilatation of big arteries and good runoff. Continue IV antibiotics. Plan for angiogram on next Tuesday and then surgery on . 3. Acute exacerbation of chronic systolic and diastolic heart failure * -Last echocardiogram 09/22/2021 showed EF of 30% with stage III diastolic dysfunction 11/02: Repeat Echo reported EF 40 to 45% with normal appearing bioprosthetic aortic valve. In comparison to echo September 22, improvement in LV systolic function. Toprol-XL increased to 100 mg daily. 10/19/18: Music Sound Light Technician consulted. Portable chest x-ray ordered . Patient has large right pleural effusion. Had right-sided thoracocentesis, 1850 mL fluid drained in July 2022. 4. #hx R pleural effusion * -Low-dose lung CT 09/29/2022 with large right pleural effusion and associated atelectasis as well as a midline ventral hernia containing fat and bowel loops with diffuse induration of subcutaneous fat that had suggested anasarca. * Repeat chest x-ray unchanged as mentioned above 11/05: Patient had 1600 mL thoracocentesis, Araseli-colored fluid. As per lights criteria fluid analysis consistent with transudate. Cell differential shows mainly mononuclear cells. 96.8%. Fluid culture pending. #Hx of underlying lung dz * -Had presumed to have COPD but recent PFTs 10/27 actually with moderately severe restrictive ventilatory defect with a symmetric reduction diffusion capacity and possible some stigmata of concomitant small airway disease which is less consistent with COPD * -Will need to continue following with pulm #Acute encephalopathy, likely metabolic encephalopathy from hypercapnia. -11/01: Waxing and waning course. But today patient seems in lucid and normal behavior.on schedule melatonin nightly, small dose of Risperdal 0.25 mg twice daily if unsuccessful #Hyperkalemia * -Unclear etiology- resolved after lasix and recheck * -Receiving Lasix * -EKG heart rate 81 bpm and normal sinus rhythm with nonspecific T wave changes but no peaked T waves * -Hold home potassium supplementation 11/06: K3.5. Patient on spironolactone. Potassium supplementation discontinued #?History of DVT * -Previous documentation of DVT in old note but not documented elsewhere, will try to clarify * -Chronically on Coumadin #Coronary disease status post CABG 04/2020/mechanical [facility] AVR/PAD s/p fempop bypass * -Cont asa, statin * -Followed by vascular on outpatient basis, has had previous intervention for breast peripheral artery disease * -INR 3.3, continue coumadin, daily INRs * -If subtherapeutic will need bridged with heparin given flight test mechanic valve -10/31: INR 2.9. Has mechanical valve, will need daily INRs and close monitoring 11/05: INR is 1.7. Patient is started on IV heparin drip 11/06: Warfarin resumed at lower dose 3 mg daily for next 2 days with daily follow-up INR and then discontinue on Tuesday a.m. for surgical procedure as mentioned above. Continue IV heparin drip. #Type 2 diabetes mellitus * -Glucose checks and sliding scale insulin * -Long-acting insulin #DVT ppx: Therapeutic on Coumadin Clinical Impression(s) from Imaging Studies Chest X-Ray 10/29/22 15:00 IMPRESSION: There is a right pleural effusion. Epigastric ventral hernia visualized extending along the right para midline. The hernia likely contains colon. Electronically Signed: Carson Morris MD at 15:30 EDT , Echocardiogram 10/29/22 16:25 Interpretation Summary The estimated ejection fraction is 40-45 %. Normal-appearing bioprosthetic aortic valve In comparison to previous echo in September 22, 2021 Improvement in LV systolic function. Ordering Physician: Ann Marie Cox Referring Physician: Saurabh Hernandez Chi Performed By: Mariam Laboy RDCS, RVT Chest X-Ray 10/30/22 05:05 IMPRESSION: 1. Large ventral hernia again seen overlying the right side of the chest. 2. Large right pleural effusion similar to the prior exam. Electronically Signed: Jose Cruz English MD at 7:49 EDT , Charges/Coding Visit Charges Inpatient E&M: 60035 Subs Hosp L2 Ordering Physician: Ann Marie Cox Referring Physician: Saurabh Hernandez Chi Performed By: Mariam Laboy RDCS, RVT Chest X-Ray 10/30/22 05:05
[2022-11-06 11:35] LABS: Partial Thromboplast Time 76.2 Seconds (24.1-36.2)
[2022-11-06 11:51] LABS: Bedside Glucose 176 mg/dL (74-106)
--- NOTE | 2022-11-06 16:15 | CASEMGMT ---
Social Work Pt has LW/Healthcare POA papers on file, Ariel Bai is listed as healthcare POA. DARIO Heredia
[2022-11-06] MEDS: Acetaminophen 325 MG Tablet 650 MG PO (16:22)
[2022-11-06 16:45] LABS: Bedside Glucose 166 mg/dL (74-106)
[2022-11-06 17:28] LABS: Partial Thromboplast Time 65.6 Seconds (24.1-36.2)
[2022-11-06] MEDS: MELATONIN 3 MG TABLET PO (21:32)
[2022-11-06] MEDS: Atorvastatin Calcium 40 MG Tablet PO (21:32)
[2022-11-07] VITALS (13 sets, daily range): BP systolic 117–156; BP diastolic 68–84; PULSE 62–76; RESP 16–24; TEMP 36.3–36.7; O2SAT 93–100; BMI 33.0
[2022-11-07 00:50] LABS: Bedside Glucose 220 mg/dL (74-106)
[2022-11-07 05:33] LABS: Absolute Lymphocyte Count 0.86 X10^3/uL (0.83-4.51); Absolute Neutrophil Count 2.1 X10^3/uL (2.0-7.7); Basophil# 0.02 X10^3/uL; Basophil% 0.5 % (0-1); Eosinophils% 2.7 % (0-5); Hematocrit 34.1 % (40-54); Hemoglobin 10.4 g/dL (13.0-16.5); Lymphocyte # 0.86 X10^3/ul (0.83-4.51); Lymphocyte % 23.2 % (19-41); Mean Corp Hgb Conc 30.5 g/dL (32-36); Mean Corpuscular Hgb 26.2 pg (27.0-32.0); Mean Corpuscular Volume 85.9 fL (80-94); Mean Platelet Vol. 10.6 fl (6.2-12.0); Monocyte# 0.59 X10^3/uL; Monocyte% 15.9 % (0-10); NRBC Flagged by Analyzer 0 % (0-5); Neutrophil # 2.11 X10^3/uL (2.7-7.7); Neutrophil % 57.2 % (47-70); POSITIVE MORPHOLOGY YES; Platelet Count 130 K/mm3 (150-450); RBC Distribution Width CV 21.4 % (11.6-14.6); RBC Distribution Width SD 67.7 fl (35.1-43.9); Red Blood Count 3.97 M/mm3 (4.6-6.2); White Blood Count 3.7 K/mm3 (4.4-11.0)
[2022-11-07 05:53] LABS: International Normalized Ratio 1.5; Prothrombin Time (Protime)PT. 17.7 SECONDS (11.7-14.9)
[2022-11-07 05:54] LABS: Partial Thromboplast Time 63.5 Seconds (24.1-36.2)
[2022-11-07 05:58] LABS: Anion Gap 3 (5-15); BUN 51 mg/dL (7-18); BUN/Creat Ratio 32.3 RATIO (10-20); Chloride 106 mmol/L (98-107); Creatinine, Serum 1.58 mg/dL (0.70-1.30); EST Glomerular Filtration Rate 46 mL/min (>60); Est Glom Filt Rate - Afr Amer 56 mL/min (>60); Glucose 143 mg/dL (74-106); Potassium 3.5 mmol/L (3.5-5.1); Sodium Level 135 mmol/L (136-145)
[2022-11-07 06:02] LABS: Vancomycin, Random Level 22.2 ug/mL (0.0-15.0)
[2022-11-07 06:04] LABS: Differential Indicated SCAN CRITERIA MET
[2022-11-07 06:06] LABS: Anisocytosis 1+; Burr Cells RARE; Differential Comment SCANNED
[2022-11-07] MEDS: Insulin Lispro 100 UNIT/ML INSULN.PEN SC ×2 (06:48→11:05)
--- NOTE | 2022-11-07 07:27 | PCM.RX.CS ---
Consult Pharmacy has been consulted to manage selected antiobiotic: Vancomycin Type of Consult: Follow-up Prior Doses of Antibiotics Received/Current Regimen: not on a scheduled dose at this time Labs: Sodium 135 mmol/L (136-145) L 11/07/22 05:10 Potassium 3.5 mmol/L (3.5-5.1) 11/07/22 05:10 Chloride 106 mmol/L (98-107) 11/07/22 05:10 Carbon Dioxide 26.0 mmol/L (21.0-32.0) 11/07/22 05:10 Anion Gap 3 (5-15) L 11/07/22 05:10 BUN 51 mg/dL (7-18) H 11/07/22 05:10 Creatinine 1.58 mg/dL (0.70-1.30) H 11/07/22 05:10 Est GFR (MDRD) Af Amer 56 mL/min (>60) L 11/07/22 05:10 Est GFR (MDRD) Non-Af 46 mL/min (>60) L 11/07/22 05:10 BUN/Creatinine Ratio 32.3 RATIO (10-20) H 11/07/22 05:10 Glucose 143 mg/dL (74-106) H 11/07/22 05:10 Vancomycin Trough 29.9 ug/mL (5.0-15.0) H 11/04/22 12:35 Random Vancomycin 22.2 ug/mL (0.0-15.0) H 11/07/22 05:10 Microbiology: Microbiology 11/05/22 09:00 Fluid - Thoracentesis Fluid Gram Stain - Final 11/05/22 09:00 Fluid - Thoracentesis Fluid Body Fluid Culture - Preliminary No growth-Final to follow 11/02/22 23:30 Sputum, Expectorated/Coughed Gram Stain - Final 11/02/22 23:30 Sputum, Expectorated/Coughed Respiratory Culture - Final Proteus mirabilis 10/29/22 19:29 Blood Culture (Wb) - Right Hand Blood Culture - Final No growth in 5 days. 10/29/22 19:20 Blood Culture (Wb) - Anticubital Right Blood Culture - Final No growth in 5 days. 10/30/22 17:38 Urine, Random Urine Culture - Final Pseudomonas aeruginosa 10/30/22 17:38 Urine, Clean Catch Legionella Antigen - Final 10/30/22 17:38 Urine, Clean Catch Streptococcus pneumoniae Antigen (M - Final 10/29/22 17:30 Mucosa - Nose Respiratory Panel (PCR) - Final 10/29/22 17:30 Nasal Secretion SARS-CoV-2 & FLU Antigen (Rapid) - Final Weight used for dosin.5 kg Estimated Creatinine Clearance: 55 ml/min Goal Trough: 15-20 mcg/mL Pharmacy Plan for Drug Dosing: The vanc random level drawn at 05:10 today was 22.2. This is still above 20 so will not dose again at this time. Repeat another random level tomorrow morning. Most likely will be able to resume dosing tomorrow at a newly calculated dose. SCr remains at 1.58 today as it was yesterday. The patient's CrCl of 55 ml/min was calculated using an adjusted body weight. Pharmacy Service will continue to monitor and adjust dosing as required. Follow-Up Labs: Trough Vancomycin - random Labs to be done on [date and time ordered]: 11/08/22 06:00
[2022-11-07] MEDS: Ipratropium/Albuterol Sulfate 3 ML AMPUL.NEB INHALATION ×4 (07:41→19:53)
--- NOTE | 2022-11-07 08:14 | PN.HOSP_ITS ---
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 (10/29/22) Peripheral vascular disease, unspecified (10/29/22) Chronic obstructive pulmonary disease, unspecified (10/29/22) Pleural effusion, not elsewhere classified (10/29/22) Acute respiratory failure with hypercapnia (10/29/22) Non-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 (10/29/22) Non-pressure chronic ulcer of other part of left foot with fat layer exposed (10/29/22) Osteomyelitis, unspecified (10/29/22) Other intraoperative and postprocedural complications and disorders of the mus culoskeletal system (10/29/22) Difficulty in walking, not elsewhere classified (10/29/22) Presence of aortocoronary bypass graft (10/29/22) Presence of prosthetic heart valve (10/29/22) Objective Data Objective Data Vital Signs: Vital Signs Temp Pulse Resp BP Pulse Ox O2 Del Method O2 Flow Rate 97.5 F L 62 18 117/70 99 Room Air 2 11/07/22 03:20 11/07/22 03:20 11/07/22 03:20 11/07/22 03:20 11/07/22 03:20 11/07/22 05:45 11/04/22 07:00 FiO2 25 10/31/22 23:18 Oxygen Flow Rate (L/min) 2 Oxygen Delivery Method [3] Room Air Oxygen Delivery Method [2] Room Air Oxygen Delivery Method [1 ( Room Air Initial Baseline)] Oxygen Delivery Method Room Air Weight: 236 lb 15.951 oz Body Mass Index (BMI) 33.0 Intake & Output: Intake and Output for Last 24 Hours 11/05/22 11/06/22 11/07/22 23:59 23:59 23:59 Intake Total 1008.75 / 1008.75 455.05 / 455.05 Output Total 3300 / 3300 1400 / 1400 400 / 400 Balance -2291.25 / -2291.25 -944.95 / -944.95 -400 / -400 Lab / Micro Data Result Diagrams: 11/07/22 05:10 11/07/22 05:10 Labs: Laboratory Results - last 24 hr 11/06/22 11:05: APTT 76.2 H 11/06/22 11:33: POC Glucose 176 H 11/06/22 16:21: POC Glucose 166 H 11/06/22 17:05: APTT 65.6 H 11/06/22 21:30: POC Glucose 220 H 11/07/22 05:10: Sodium 135 L, Potassium 3.5, Chloride 106, Carbon Dioxide 26.0, Anion Gap 3 L, BUN 51 H, Creatinine 1.58 H, Estim Creat Clear Calc 47.00, Est GFR (MDRD) Af Amer 56 L, Est GFR (MDRD) Non-Af 46 L, BUN/Creatinine Ratio 32.3 H , Glucose 143 H, Calcium 8.0 L 11/07/22 05:10: Random Vancomycin 22.2 H 11/07/22 05:10: PT 17.7 H, INR 1.5, APTT 63.5 H 11/07/22 05:10: WBC 3.7 L, RBC 3.97 L, Hgb 10.4 L, Hct 34.1 L, MCV 85.9, MCH 26.2 L, MCHC 30.5 L, RDW Std Deviation 67.7 H, RDW Coeff of Estrada 21.4 H, Plt Count 130 L, MPV 10.6, Immature Gran % (Auto) 0.500, Neut % (Auto) 57.2, Lymph % (Auto) 23.2, [place] % (Auto) 15.9 H, Eos % (Auto) 2.7, Baso % (Auto) 0.5, Absolute Neuts (auto) 2.1, Absolute Lymphs (auto) 0.86, Nucleated RBC % 0, Differential Comment SCANNED, Anisocytosis 1+, [place] Cells RARE Micro: Microbiology 11/05/22 09:00 Fluid - Thoracentesis Fluid Gram Stain - Final 11/05/22 09:00 Fluid - Thoracentesis Fluid Body Fluid Culture - Preliminary No growth-Final to follow 11/02/22 23:30 Sputum, Expectorated/Coughed Gram Stain - Final 11/02/22 23:30 Sputum, Expectorated/Coughed Respiratory Culture - Final Proteus mirabilis 10/29/22 19:29 Blood Culture (Wb) - Right Hand Blood Culture - Final No growth in 5 days. 10/29/22 19:20 Blood Culture (Wb) - Anticubital Right Blood Culture - Final No growth in 5 days. 10/30/22 17:38 Urine, Random Urine Culture - Final Pseudomonas aeruginosa 10/30/22 17:38 Urine, Clean Catch Legionella Antigen - Final 10/30/22 17:38 Urine, Clean Catch Streptococcus pneumoniae Antigen (M - Final 10/29/22 17:30 Mucosa - Nose Respiratory Panel (PCR) - Final 10/29/22 17:30 Nasal Secretion SARS-CoV-2 & FLU Antigen (Rapid) - Final Rhythm Strip Rhythm Strip: Sinus Rhythm Rate: 81 Ectopy: None Physical Exam Narrative Seen and examined. Shortness of breath better after thoracocentesis. No change in last 2 days. Bilateral feet ulcer. Vascular surgery consulted by construction framer. Continue IV heparin drip. Physical exam General: Alert, Oriented x3, Cooperative, obesity grade 32.7 kg/m?. HEENT: Atraumatic, PERRLA, EOMI, Normocephalic Oral: Oral mucosa moist. No Gingival or Mucosal Lesions/ Ulcerations Neck: Supple, No JVD, Negative Carotid Bruits Chest wall/lungs: Air entry improved on right lung. No crepitation/rhonchi. Patient has mid chest to epigastric ventral hernia, chronic Cardiovascular: Regular rate, Regular Rhythm, Normal S1, Normal S2, mechanical aortic valve sound. Abdomen: Bowel Sounds Present, Soft, Non Tender, with epigastric hernia. Does not seem obstructed. : No renal angle tenderness. No suprapubic tenderness. Extremities: 1+ bilateral pitting edema, Capillary Refill Less than 3 Seconds Skin: Bilateral feet ulcer. Right second toe ulcer with exposed bone nonhealing, seems nonviable. Right first toe amputated. Left second toe with chronic ulcer to subcutaneous tissue. Musculoskeletal: No Tenderness to Palpation of Joints or Extremities. ROM severely limited. Decreased mobility. Neurological: Cranial nerves II-XII grossly intact, DTR 2+/4, muscle strength 4+/5 at knees and hip joints. Psych/Mental Status: Flat affect. Assessment & Plan Assessment/Plan (1) Acute hypercapnic respiratory failure: (2) Encephalopathy acute: (3) Chronic combined systolic and diastolic CHF (congestive heart failure): (4) Type 2 diabetes mellitus: (5) Atherosclerosis of lower extremity with ulceration: PLAN: Plan 1. Acute hypercapnic respiratory failure. * -AECHF vs AECOPD vs R pleural effusion, less likely PNA given wbc WNL and no left shift * -CXR remonstrated right pleural effusion with increased interstitial lung markings * -ABG with pH of 7.34 with a PO2 of 95 and a PCO2 of 58.3 patient placed on BiPAP * -BNP 512, has had higher in the past but does have persistent R pleural effusion and sounds more congested * -40iv lasix qday * Heart failure core measures including intake and output, fluid restriction less than 1500 mL, daily weight monitoring, kidney and electrolytes monitoring * On BiPAP. * -COVID, respiratory panel and urinary antigens are negative. 11/01: . Continue diuresis. EF 40 to 45% which report identifies as slightly improved LV systolic dysfunction from September 22, 2021. Repeat chest x-ray shows large right pleural effusion with ventral hernia 11/02: Patient had 400 mill urine output over last 2 days. Still short of breath probably due to large right pleural effusion. Discussed with the fourdrinier operator and IR, Dr. Starkey. Ultrasound-guided thoracocentesis ordered and plan for thoracocentesis in a.m. if INR permits 11/03: Positive fluid balance about 2 L. 450 mill urine output yesterday. Vitamin K given in order to correct INR. Thoracocentesis ordered for tomorrow AM. On Lasix 40 IV daily. Spironolactone increased to 50 mg daily. Discussed with the fourdrinier operator. 11/05: Increase in creatinine from 0.6-1.43 consistent with ZOFIA, prerenal due to fluid shift from Lasix and thoracocentesis. Hold Lasix. 11/06: Continue holding furosemide. Continue BiPAP support at night. 11/07: Continue holding Lasix. Potassium 3.5. Spironolactone dose increased to 75 mg daily. 2. Perioperative management of Right second toe nonhealing ulcer, Necrosis of bone/chronic osteomyelitis and left second toe subcutaneous ulcer wound cx positive for MRSA and kocuria kristinae -11/01: Patient was evaluated by construction framer and had bedside debridement. Concern of potential osteomyelitis and if that may be will need amputation. ESR mildly elevated Today. Patient on IV vancomycin. Prelim urine culture shows GNR possible Pseudomonas. Blood culture negative for more than 48 hours. Urine culture shows GNR possible Pseudomonas [id number] colonies. It is in nonpathologic range and therefore will leave on ID. 11/02: Vascular surgery consulted.Discussed with the [place] vascular PA. INR is 3.0 therefore warfarin is held. If INR is 2 by we will proceed with angio if not we will plan for angio early next week instead. Once INR is 2 we will start on heparin drip to bridge for procedure. Patient is high risk given for small procedure to open because of chronic cardiac and respiratory conditions. 11/03: INR 3.2. Last dose of warfarin was on 11/01. Monitor INR daily. 11/05: Sputum culture growing Proteus. Started on Unasyn. Dr. Kendrick May will not be able to do angiogram before Tuesday. 11/06: Discussed with Dr. Lozano. Dr. May said the surgical wound will not heal until he do angiogram. He might need dilatation of big arteries and good runoff. Continue IV antibiotics. Plan for angiogram on next Tuesday and then surgery on . 3. Acute exacerbation of chronic systolic and diastolic heart failure * -Last echocardiogram 09/22/2021 showed EF of 30% with stage III diastolic dysfunction 11/02: Repeat Echo reported EF 40 to 45% with normal appearing bioprosthetic aortic valve. In comparison to echo September 22, improvement in LV systolic function. Toprol-XL increased to 100 mg daily. 10/19/18: Overnight Cashier consulted. Portable chest x-ray ordered . Patient has large right pleural effusion. Had right-sided thoracocentesis, 1850 mL fluid drained in July 2022. 4. #hx R pleural effusion * -Low-dose lung CT 09/29/2022 with large right pleural effusion and associated atelectasis as well as a midline ventral hernia containing fat and bowel loops with diffuse induration of subcutaneous fat that had suggested anasarca. * Repeat chest x-ray unchanged as mentioned above 11/05: Patient had 1600 mL thoracocentesis, Araseli-colored fluid. As per lights criteria fluid analysis consistent with transudate. Cell differential shows mainly mononuclear cells. 96.8%. Fluid culture pending. #Hx of underlying lung dz * -Had presumed to have COPD but recent PFTs 10/27 actually with moderately severe restrictive ventilatory defect with a symmetric reduction diffusion capacity and possible some stigmata of concomitant small airway disease which is less consistent with COPD * -Will need to continue following with pulm #Acute encephalopathy, likely metabolic encephalopathy from hypercapnia. -11/01: Waxing and waning course. But today patient seems in lucid and normal behavior.on schedule melatonin nightly, small dose of Risperdal 0.25 mg twice daily if unsuccessful #Hyperkalemia resolved. * -Unclear etiology- resolved after lasix and recheck * -Receiving Lasix * -EKG heart rate 81 bpm and normal sinus rhythm with nonspecific T wave changes but no peaked T waves * -Hold home potassium supplementation 11/06: K3.5. Patient on spironolactone. Potassium supplementation discontinued 11/07: ZOFIA due to diuretic and thoracocentesis, prerenal etiology from fluid shift. Lasix on hold. Continue spironolactone as potassium is low.. Creati nine stable for last 2 days #?History of DVT * -Previous documentation of DVT in old note but not documented elsewhere, will try to clarify * -Chronically on Coumadin #Coronary disease status post CABG 04/2020/mechanical [facility] AVR/PAD s/p fempop bypass * -Cont asa, statin * -Followed by vascular on outpatient basis, has had previous intervention for breast peripheral artery disease * -INR 3.3, continue coumadin, daily INRs * -If subtherapeutic will need bridged with heparin given utility mechanic valve -10/31: INR 2.9. Has mechanical valve, will need daily INRs and close monitoring 11/05: INR is 1.7. Patient is started on IV heparin drip 11/06: Warfarin resumed at lower dose 3 mg daily for next 2 days with daily follow-up INR and then discontinue on Tuesday a.m. for surgical procedure as mentioned above. Continue IV heparin drip. 11/07 INR 1.5. Continue warfarin today #Type 2 diabetes mellitus * -Glucose checks and sliding scale insulin * -Long-acting insulin #DVT ppx: Therapeutic on Coumadin Clinical Impression(s) from Imaging Studies Chest X-Ray 10/29/22 15:00 IMPRESSION: There is a right pleural effusion. Epigastric ventral hernia visualized extending along the right para midline. The hernia likely contains colon. Electronically Signed: Carson Morris MD at 15:30 EDT , Echocardiogram 10/29/22 16:25 Interpretation Summary The estimated ejection fraction is 40-45 %. Normal-appearing bioprosthetic aortic valve In comparison to previous echo in September 22, 2021 Improvement in LV systolic function. Ordering Physician: Ann Marie Cox Referring Physician: Saurabh Hernandez Chi Performed By: Mariam Laboy, JOCELYN, RVT Chest X-Ray 10/30/22 05:05 IMPRESSION: 1. Large ventral hernia again seen overlying the right side of the chest. 2. Large right pleural effusion similar to the prior exam. Electronically Signed: Jose Cruz English MD at 7:49 EDT , Charges/Coding Visit Charges Inpatient E&M: 40615 Subs Hosp L2
[2022-11-07] MEDS: Juven (unflavored) Packet 1 PACKET PO ×2 (08:51→16:34)
[2022-11-07] MEDS: Insulin Glargine-YFGN 100 UNIT/ML Pen 15 UNIT SC (08:51)
[2022-11-07] MEDS: Metoprolol(XL)Succ 100 MG Tablet PO (08:52)
[2022-11-07] MEDS: Ferrous Sulfate 325 MG Tablet PO (08:52)
[2022-11-07] MEDS: Lisinopril 5 MG Tablet PO (08:52)
[2022-11-07] MEDS: Spironolactone 25 MG Tablet 50 MG PO (08:52)
[2022-11-07 09:31] LABS: Bedside Glucose 167 mg/dL (74-106)
[2022-11-07 11:25] LABS: Bedside Glucose 169 mg/dL (74-106)
[2022-11-07] MEDS: Spironolactone 25 MG Tablet PO (12:30)
[2022-11-07] MEDS: 0.9% Saline Lock 10 ML Syringe IV ×2 (13:39→22:05)
[2022-11-07] MEDS: HEPARIN/D5w 25,000 UNITS 25,000 UNITS/250 ML IV.SOLN. 9 UNITS CONT INF (14:00)
[2022-11-07 16:20] LABS: Bedside Glucose 122 mg/dL (74-106)
[2022-11-07 20:07] LABS: Amylase Body Fluid 17 U/L (.); pH, Body Fluid 11254 7.4 (Not Estab.)
[2022-11-07] MEDS: MELATONIN 3 MG TABLET PO (21:48)
[2022-11-07] MEDS: Atorvastatin Calcium 40 MG Tablet PO (21:48)
[2022-11-07 22:30] LABS: Bedside Glucose 119 mg/dL (74-106)
[2022-11-08] VITALS (16 sets, daily range): BP systolic 136–154; BP diastolic 67–85; PULSE 64–74; RESP 16–28; TEMP 36.2–36.6; O2SAT 96–100; BMI 33.0
[2022-11-08] MEDS: Albuterol 2.5 MG/3 ML VIAL.NEB. INHALATION (05:06)
[2022-11-08 05:52] LABS: Absolute Lymphocyte Count 0.91 X10^3/uL (0.83-4.51); Absolute Neutrophil Count 2.5 X10^3/uL (2.0-7.7); Basophil# 0.02 X10^3/uL; Basophil% 0.5 % (0-1); Eosinophil# 0.12 X10^3/uL; Eosinophils% 2.9 % (0-5); Hematocrit 34.3 % (40-54); Hemoglobin 10.4 g/dL (13.0-16.5); Lymphocyte # 0.91 X10^3/ul (0.83-4.51); Mean Corp Hgb Conc 30.3 g/dL (32-36); Mean Corpuscular Hgb 26.1 pg (27.0-32.0); Mean Platelet Vol. 11.2 fl (6.2-12.0); Monocyte# 0.55 X10^3/uL; Monocyte% 13.3 % (0-10); NRBC Flagged by Analyzer 0 % (0-5); Neutrophil # 2.53 X10^3/uL (2.7-7.7); Neutrophil % 61.1 % (47-70); POSITIVE MORPHOLOGY YES; Platelet Count 147 K/mm3 (150-450); RBC Distribution Width CV 21.4 % (11.6-14.6); RBC Distribution Width SD 68.3 fl (35.1-43.9); Red Blood Count 3.99 M/mm3 (4.6-6.2); White Blood Count 4.1 K/mm3 (4.4-11.0)
[2022-11-08 06:02] LABS: International Normalized Ratio 1.7; Prothrombin Time (Protime)PT. 19.2 SECONDS (11.7-14.9)
[2022-11-08 06:10] LABS: Anion Gap 3 (5-15); BUN 52 mg/dL (7-18); BUN/Creat Ratio 32.1 RATIO (10-20); Chloride 107 mmol/L (98-107); Creatinine, Serum 1.62 mg/dL (0.70-1.30); EST Glomerular Filtration Rate 45 mL/min (>60); Est Glom Filt Rate - Afr Amer 55 mL/min (>60); Estimated Creatinine Clearance 45.84 ml/min; Glucose 162 mg/dL (74-106); Potassium 3.7 mmol/L (3.5-5.1); Sodium Level 136 mmol/L (136-145)
[2022-11-08 06:11] LABS: Vancomycin, Random Level 17.7 ug/mL (0.0-15.0)
[2022-11-08 06:28] LABS: Differential Indicated SCAN CRITERIA MET
[2022-11-08 07:15] LABS: Bedside Glucose 138 mg/dL (74-106)
[2022-11-08] MEDS: Ipratropium/Albuterol Sulfate 3 ML AMPUL.NEB INHALATION ×5 (07:48→23:27)
[2022-11-08 07:50] LABS: Partial Thromboplast Time 77.6 Seconds (24.1-36.2)
--- NOTE | 2022-11-08 08:19 | WOUNDNOTE ---
wound photo: right 2nd toe
--- NOTE | 2022-11-08 08:19 | WOUNDNOTE ---
wound photo: left 2nd toe
[2022-11-08] MEDS: Ferrous Sulfate 325 MG Tablet PO (08:30)
[2022-11-08] MEDS: Juven (unflavored) Packet 1 PACKET PO ×2 (08:31→17:08)
--- NOTE | 2022-11-08 09:08 | PCM.PROGNOTE ---
Subjective Subjective No changes overnight denies constitutionals/pain Objective Data Objective Data Vital Signs: Vital Signs Temp Pulse Resp BP Pulse Ox O2 Del Method O2 Flow Rate 97.8 F 68 18 136/67 H 98 Room Air 2 11/08/22 03:59 11/08/22 07:48 11/08/22 07:48 11/08/22 03:59 11/08/22 07:48 11/08/22 07:48 11/08/22 04:14 FiO2 25 10/31/22 23:18 Oxygen Flow Rate (L/min) 2 Oxygen Delivery Method [3] Room Air Oxygen Delivery Method [2] Room Air Oxygen Delivery Method [1 ( Room Air Initial Baseline)] Oxygen Delivery Method Room Air Weight: 107.6 kg Body Mass Index (BMI) 33.0 Intake & Output: Intake and Output for Last 24 Hours 11/06/22 11/07/22 11/08/22 23:59 23:59 23:59 Intake Total 455.05 / 455.05 836 / 836 112 / 112 Output Total 1400 / 1400 1300 / 1300 0 / 0 Balance -944.95 / -944.95 -464 / -464 112 / 112 Lab / Micro Data Result Diagrams: 11/08/22 05:20 11/08/22 05:20 Labs: Laboratory Results - last 24 hr 11/05/22 08:00: Fluid pH 7.4, Fluid Amylase 17 11/07/22 06:33: POC Glucose 167 H 11/07/22 11:04: POC Glucose 169 H 11/07/22 16:00: POC Glucose 122 H 11/07/22 21:52: POC Glucose 119 H 11/08/22 05:20: Sodium 136, Potassium 3.7, Chloride 107, Carbon Dioxide 26.0, Anion Gap 3 L, BUN 52 H, Creatinine 1.62 H, Estim Creat Clear Calc 45.84, Est GFR (MDRD) Af Amer 55 L, Est GFR (MDRD) Non-Af 45 L, BUN/Creatinine Ratio 32.1 H, Glucose 162 H, Calcium 8.0 L 11/08/22 05:20: PT 19.2 H, INR 1.7 11/08/22 05:20: WBC 4.1 L, RBC 3.99 L, Hgb 10.4 L, Hct 34.3 L, MCV 86.0, MCH 26.1 L, MCHC 30.3 L, RDW Std Deviation 68.3 H, RDW Coeff of Estrada 21.4 H, Plt Count 147 L, MPV 11.2, Immature Gran % (Auto) 0.200, Neut % (Auto) 61.1, Lymph % (Auto) 22.0, [place] % (Auto) 13.3 H, Eos % (Auto) 2.9, Baso % (Auto) 0.5, Absolute Neuts (auto) 2.5, Absolute Lymphs (auto) 0.91, Nucleated RBC % 0 11/08/22 05:20: Random Vancomycin 17.7 H 11/08/22 05:20: APTT 77.6 H 11/08/22 06:53: POC Glucose 138 H Micro: Microbiology 11/05/22 09:00 Fluid - Thoracentesis Fluid Gram Stain - Final 11/05/22 09:00 Fluid - Thoracentesis Fluid Body Fluid Culture - Final Culture exhibits no growth. 11/05/22 09:00 Fluid - Thoracentesis Fluid Anaerobic Culture - Preliminary No growth in 48 hours. 11/02/22 23:30 Sputum, Expectorated/Coughed Gram Stain - Final 11/02/22 23:30 Sputum, Expectorated/Coughed Respiratory Culture - Final Proteus mirabilis 10/29/22 19:29 Blood Culture (Wb) - Right Hand Blood Culture - Final No growth in 5 days. 10/29/22 19:20 Blood Culture (Wb) - Anticubital Right Blood Culture - Final No growth in 5 days. 10/30/22 17:38 Urine, Random Urine Culture - Final Pseudomonas aeruginosa 10/30/22 17:38 Urine, Clean Catch Legionella Antigen - Final 10/30/22 17:38 Urine, Clean Catch Streptococcus pneumoniae Antigen (M - Final 10/29/22 17:30 Mucosa - Nose Respiratory Panel (PCR) - Final 10/29/22 17:30 Nasal Secretion SARS-CoV-2 & FLU Antigen (Rapid) - Final Rhythm Strip Rhythm Strip: Sinus Rhythm Rate: 81 Ectopy: None Physical Exam Narrative Right 2nd toe with dorsal PIPJ chronic ulcer down to exposed bone - chronic and stable. Distal left 2nd toe ulceration down to subcutaneous tissue - chronic and stable as well.No evidence of acute ischemia to the foot bilateral, no new areas of wounds bilateral foot or ankle. Const alert, oriented x3 and no apparent distress General Appearance: cooperative HEENT normocephalic Eyes General Eye: normal appearance of both eyes Neck General: normal visual inspection Lymph Lymphatic: no lymphadenopathy noted and no lymphedema noted Resp Resp Narrative: Does have decreased lung sounds right greater than left, effort normal. Cardio regular rate and regular rhythm Extremity normal capillary refill, no calf tenderness and no pedal edema Extremity Narrative: DP and PT pulses weakly palpable with adequate capillary fill time bilateral Skin no rashes or lesions noted, skin turgor normal and no jaundice Wound Narrative: Left lower extremity: There is a second digit wound noted to the distal tuft that is superficial in nature. There is mixed granular tissue with some epithelialization and xerotic skin. No purulent drainage noted, no malodor, no palpable fluctuance/bogginess, no visible abscess, no lymphangitic streaking. Right lower extremity: There is a dorsal ulceration noted to the second digit overlying the proximal interphalangeal joint with exposure of the head of the proximal phalanx. Exposed portion of bone is noted to be slightly discolored but of quality hardness. No erythema, no purulent drainage, no malodor, no palpable fluctuance/bogginess, no visible abscess, no lymphangitic streaking. Neuro moves all extremities Neuro Narrative: There is weakness to the lower extremities There is decreased sensation to bilateral lower extremities consistent with peripheral polyneuropathy Assessment & Plan Assessment/Plan (1) Non-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: (2) Type 2 diabetes mellitus: (3) Peripheral vascular occlusive disease: (4) Osteomyelitis of toe of right foot: PLAN: Plan Reviewed diagnostic data. Clinically there is osteomyelitis right 2nd toe. Wound left 2nd toe as well. Wounds stable. Wound to distal tuft left 2nd toe. Will plan for right 2nd digit amputation and left (elective) 2nd digit partial amputation due to deformity and potential for recurrent wound formation to that site after vascular surgery. Patient scheduled added on to the OR at 1PM (11/11/22). Reviewed cultures of ulceration - MRSA and Kocuria Kristinae - patient is on antibiotic therapy per ID service at this time. Vascular surgery following patient, and waiting vascular procedure prior to right 2nd toe amputation - appears this will likely be next week, awaiting INR improvement. Right 2nd toe stable at this time. Left 2nd toe is stable as well. Continue with local wound care. Podiatry will continue to follow every 2-3 days at this point.
[2022-11-08] MEDS: Vancomycin IV 1,000 MG/200 ML BAG 200 MG IV (09:10)
--- NOTE | 2022-11-08 09:24 | CASEMGMT ---
KALANI sent updates to [employer] via [employer]. Ashlyn Parkinson MANAGER FRONT [employer] SERVICE TECHNICIAN
[2022-11-08] MEDS: Insulin Glargine-YFGN 100 UNIT/ML Pen 15 UNIT SC (09:30)
[2022-11-08] MEDS: Metoprolol(XL)Succ 100 MG Tablet PO (09:46)
[2022-11-08] MEDS: Insulin Lispro 100 UNIT/ML INSULN.PEN SC ×3 (10:51→22:54)
[2022-11-08 11:00] LABS: Bedside Glucose 164 mg/dL (74-106)
[2022-11-08 11:30] LABS: Bedside Glucose 213 mg/dL (74-106)
[2022-11-08 11:51] LABS: Pathologist Comment/Body Fluid Reviewed
--- NOTE | 2022-11-08 12:05 | CON.PCM.RE_ITS ---
Assessment & Plan Assessment/Plan (1) ZOFIA (acute kidney injury): PLAN: Baseline creatinine seems to be normal. Creatinine has increased over the last 3-4 days. Urine output is present. He had a CT abdomen on 10/27 without any hydronephrosis. He has been on vancomycin, levels have been on the higher side on and off. Urinalysis appears to be fairly benign. Most likely ATN. Medication list reviewed. Vancomycin has been discontinued. Currently on Unasyn. Blood pressure is acceptable. HPI Consult Data Date of Consult: 11/08/22 HPI Narrative Reason for Consultation: acute renal failure HPI Narrative: RAPHAEL HADDAD, is a 71 M who presents the hospital with shortness of breath,infected toe. Nephrology consultation due to acute renal failure. ongoing events Respiratory failure, initially treated for hypercapnic respiratory failure, congestive heart failure, received diuretics, currently all diuretics are on hold due to acute renal failure Osteomyelitis of the toe, followed by podiatry, vascular surgery, eventually need angiogram Baseline creatinine seems to be normal. Is currently getting physical therapy. [facility] Medical History (Updated 11/08/22 @ 12:[address] Daryl Johnson MD) Adult failure to thrive Atherosclerosis of coronary artery without angina pectoris Bleeding disorder CHF (congestive heart failure) Chronic combined systolic and diastolic CHF (congestive heart failure) Congestive heart failure COPD (chronic obstructive pulmonary disease) Diabetic foot infection DVT (deep venous thrombosis) Elevated troponin Gangrene of toe GERD (gastroesophageal reflux disease) History of non-ST elevation myocardial infarction (NSTEMI) (04/23/20) Hyperlipidemia Ischemic cardiomyopathy Kidney stones snf current use of 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 Lumbar spinal stenosis MSSA (methicillin susceptible Staphylococcus aureus) infection Nicotine dependence Non-healing surgical wound (05/01/20) Nonrheumatic aortic (valve) stenosis 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 Obstructive sleep apnea Osteomyelitis Peripheral vascular occlusive disease Pleural effusion, right Recurrent right pleural effusion Scabies infestation Secondary pulmonary arterial hypertension Smoker Sternal wound infection Type 2 diabetes mellitus 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 foot with fat layer exposed Ulcer of right foot with necrosis of bone Home Medications metformin 500 mg tablet 500 mg PO BIDCM diabetes 05/31/20 [History Last Taken 09/21/21] atorvastatin 40 mg tablet 40 mg PO QHS cholesterol 11/12/20 [History Last Taken 09/20/21] potassium chloride 20 mEq tablet,extended release(part/cryst) 20 meq PO DAILY suipplement 12/23/20 [History Last Taken 12/22/20] linagliptin 5 mg tablet (Tradjenta) 5 mg PO DAILY DM 10/08/21 [History Last Taken Unknown] lisinopril 5 mg tablet 5 mg PO DAILY HTN 10/08/21 [History Last Taken Unknown] metoprolol succinate 25 mg tablet,extended release 24 hr 75 mg PO DAILY HTN 10/08/21 [History Last Taken Unknown] doxepin 50 mg capsule 50 mg PO QHS Check with primary doctor 02/11/22 [History Last Taken Unknown] insulin aspart U-100 100 unit/mL (3 mL) subcutaneous pen (Novolog FlexPen U-100 Insulin aspart) 10 unit (0.1 mL) subcut BIDCM diabetes #3 mL 02/12/22 [Rx Last Taken Unknown] insulin glargine 100 unit/mL (3 mL) subcutaneous pen (Lantus Solostar U-100 Insulin) 25 unit (0.25 mL) subcut DAILY DM #3 mL 02/12/22 [Rx Last Taken Unknown] ascorbic acid (vitamin C) 500 mg capsule 500 mg PO BID 10/14/22 [History Last Taken Unknown] furosemide 20 mg tablet 40 mg PO DAILY diuretic 10/14/22 [History Last Taken Unknown] gabapentin 100 mg capsule 200 mg PO BID pain 10/14/22 [History Last Taken Unknown] warfarin 6 mg tablet (Jantoven) 4 mg PO DAILY Check with primary doctor 10/14/22 [History Last Taken Unknown] amoxicillin 875 mg-potassium clavulanate 125 mg tablet 1 tab PO BID #20 tabs 10/19/22 [Rx Last Taken Unknown] cholecalciferol (vitamin D3) 50 mcg (2,000 unit) capsule (Vitamin D3) 50 mcg PO DAILY 10/29/22 [History Last Taken Unknown] ferrous sulfate 325 mg (65 mg iron) tablet 325 mg PO DAILY 10/29/22 [History Last Taken Unknown] ipratropium 0.5 mg-albuterol 3 mg (2.5 mg base)/3 mL nebulization soln 3 ml inhalation Q4H PRN SOB 10/29/22 [History Last Taken Unknown] Allergy/AdvReac Type Severity Reaction Status Date / Time No Known Allergies Allergy Verified 04/04/23 13:51 Family History Mother Diabetes Heart disease Father Diabetes Surgical History H/O coronary artery bypass surgery (05/01/20) History of angioplasty of peripheral vessel (01/02/10) History of femoropopliteal bypass (2008) History of incision and drainage (09/22/20) History of left heart catheterization (04/23/20) History of lumbar laminectomy History of mechanical aortic valve replacement Social History household members: significant other Smoking Status: Current every day smoker tobacco type: cigarettes alcohol intake: never substance use type: does not use caffeine: No ROS Review of Systems ROS Unobtainable: other Physical Exam Narrative alert, awake No obvious distress Lower extremity wound present Lab / Micro Data Result Diagrams: 11/08/22 05:20 11/08/22 05:20 Labs: Laboratory Results - last 24 hr 11/05/22 08:00: Fluid pH 7.4, Fluid Amylase 17 11/05/22 09:00: Fl Pathologist Comment Reviewed 11/07/22 16:00: POC Glucose 122 H 11/07/22 21:52: POC Glucose 119 H 11/08/22 05:20: Sodium 136, Potassium 3.7, Chloride 107, Carbon Dioxide 26.0, Anion Gap 3 L, BUN 52 H, Creatinine 1.62 H, Estim Creat Clear Calc 45.84, Est GFR (MDRD) Af Amer 55 L, Est GFR (MDRD) Non-Af 45 L, BUN/Creatinine Ratio 32.1 H , Glucose 162 H, Calcium 8.0 L 11/08/22 05:20: PT 19.2 H, INR 1.7 11/08/22 05:20: WBC 4.1 L, RBC 3.99 L, Hgb 10.4 L, Hct 34.3 L, MCV 86.0, MCH 26.1 L, MCHC 30.3 L, RDW Std Deviation 68.3 H, RDW Coeff of Estrada 21.4 H, Plt Count 147 L, MPV 11.2, Immature Gran % (Auto) 0.200, Neut % (Auto) 61.1, Lymph % (Auto) 22.0, [place] % (Auto) 13.3 H, Eos % (Auto) 2.9, Baso % (Auto) 0.5, Absolute Neuts (auto) 2.5, Absolute Lymphs (auto) 0.91, Nucleated RBC % 0 11/08/22 05:20: Random Vancomycin 17.7 H 11/08/22 05:20: APTT 77.6 H 11/08/22 06:53: POC Glucose 138 H 11/08/22 09:29: POC Glucose 164 H 11/08/22 10:49: POC Glucose 213 H Micro: Microbiology 11/05/22 09:00 Fluid - Thoracentesis Fluid Gram Stain - Final 11/05/22 09:00 Fluid - Thoracentesis Fluid Body Fluid Culture - Final Culture exhibits no growth. 11/05/22 09:00 Fluid - Thoracentesis Fluid Anaerobic Culture - Preliminary No growth in 48 hours. Rhythm Strip Rhythm Strip: Sinus Rhythm Rate: 81 Ectopy: None
--- NOTE | 2022-11-08 13:14 | PN.HOSP_ITS ---
Reason for Visit Reason for Visit: Diagnoses Type 2 diabetes mellitus without complications (10/29/22) Nicotine dependence, unspecified, uncomplicated (10/29/22) Encephalopathy, unspecified (10/29/22) Essential (primary) hypertension (10/29/22) Secondary pulmonary arterial hypertension (10/29/22) Chronic combined systolic (congestive) and diastolic (congestive) heart failure (10/29/22) Heart failure, unspecified (10/29/22) Atherosclerosis of [place] arteries of other extremities with ulceration (10/29/22) Peripheral vascular disease, unspecified (10/29/22) Chronic obstructive pulmonary disease, unspecified (10/29/22) Pleural effusion, not elsewhere classified (10/29/22) Acute respiratory failure with hypercapnia (10/29/22) Non-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 (10/29/22) Non-pressure chronic ulcer of other part of left foot with fat layer exposed (10/29/22) Osteomyelitis, unspecified (10/29/22) Other intraoperative and postprocedural complications and disorders of the mus culoskeletal system (10/29/22) Difficulty in walking, not elsewhere classified (10/29/22) Presence of aortocoronary bypass graft (10/29/22) Presence of prosthetic heart valve (10/29/22) Objective Data Objective Data Vital Signs: Vital Signs Temp Pulse Resp BP Pulse Ox O2 Del Method O2 Flow Rate 97.8 F 70 18 147/85 H 97 Room Air 2 11/08/22 09:58 11/08/22 10:09 11/08/22 10:09 11/08/22 09:58 11/08/22 11:06 11/08/22 10:00 11/08/22 04:14 FiO2 25 10/31/22 23:18 Oxygen Flow Rate (L/min) 2 Oxygen Delivery Method [3] Room Air Oxygen Delivery Method [2] Room Air Oxygen Delivery Method [1 ( Room Air Initial Baseline)] Oxygen Delivery Method Room Air Weight: 237 lb 3.478 oz Body Mass Index (BMI) 33.0 Intake & Output: Intake and Output for Last 24 Hours 11/06/22 11/07/22 11/08/22 23:59 23:59 23:59 Intake Total 455.05 / 455.05 836 / 836 312 / 312 Output Total 1400 / 1400 1300 / 1300 0 / 0 Balance -944.95 / -944.95 -464 / -464 312 / 312 Lab / Micro Data Result Diagrams: 11/08/22 05:20 11/08/22 05:20 Labs: Laboratory Results - last 24 hr 11/05/22 08:00: Fluid pH 7.4, Fluid Amylase 17 11/05/22 09:00: Fl Pathologist Comment Reviewed 11/07/22 16:00: POC Glucose 122 H 11/07/22 21:52: POC Glucose 119 H 11/08/22 05:20: Sodium 136, Potassium 3.7, Chloride 107, Carbon Dioxide 26.0, Anion Gap 3 L, BUN 52 H, Creatinine 1.62 H, Estim Creat Clear Calc 45.84, Est GFR (MDRD) Af Amer 55 L, Est GFR (MDRD) Non-Af 45 L, BUN/Creatinine Ratio 32.1 H , Glucose 162 H, Calcium 8.0 L 11/08/22 05:20: PT 19.2 H, INR 1.7 11/08/22 05:20: WBC 4.1 L, RBC 3.99 L, Hgb 10.4 L, Hct 34.3 L, MCV 86.0, MCH 26.1 L, MCHC 30.3 L, RDW Std Deviation 68.3 H, RDW Coeff of Estrada 21.4 H, Plt Count 147 L, MPV 11.2, Immature Gran % (Auto) 0.200, Neut % (Auto) 61.1, Lymph % (Auto) 22.0, [place] % (Auto) 13.3 H, Eos % (Auto) 2.9, Baso % (Auto) 0.5, Absolute Neuts (auto) 2.5, Absolute Lymphs (auto) 0.91, Nucleated RBC % 0 11/08/22 05:20: Random Vancomycin 17.7 H 11/08/22 05:20: APTT 77.6 H 11/08/22 06:53: POC Glucose 138 H 11/08/22 09:29: POC Glucose 164 H 11/08/22 10:49: POC Glucose 213 H Micro: Microbiology 11/05/22 09:00 Fluid - Thoracentesis Fluid Gram Stain - Final 11/05/22 09:00 Fluid - Thoracentesis Fluid Body Fluid Culture - Final Culture exhibits no growth. 11/05/22 09:00 Fluid - Thoracentesis Fluid Anaerobic Culture - Preliminary No growth in 48 hours. 11/02/22 23:30 Sputum, Expectorated/Coughed Gram Stain - Final 11/02/22 23:30 Sputum, Expectorated/Coughed Respiratory Culture - Final Proteus mirabilis 10/29/22 19:29 Blood Culture (Wb) - Right Hand Blood Culture - Final No growth in 5 days. 10/29/22 19:20 Blood Culture (Wb) - Anticubital Right Blood Culture - Final No growth in 5 days. 10/30/22 17:38 Urine, Random Urine Culture - Final Pseudomonas aeruginosa 10/30/22 17:38 Urine, Clean Catch Legionella Antigen - Final 10/30/22 17:38 Urine, Clean Catch Streptococcus pneumoniae Antigen (M - Final 10/29/22 17:30 Mucosa - Nose Respiratory Panel (PCR) - Final 10/29/22 17:30 Nasal Secretion SARS-CoV-2 & FLU Antigen (Rapid) - Final Rhythm Strip Rhythm Strip: Sinus Rhythm Rate: 81 Ectopy: None Physical Exam Narrative Seen and examined. Shortness of breath better after thoracocentesis. No acute change in last 3 days. INR subtherapeutic. Bilateral feet ulcer. Vascular surgery consulted by flap lining binder. Continue IV heparin drip. Physical exam General: Alert, Oriented x3, Cooperative, obesity grade 32.7 kg/m?. HEENT: Atraumatic, PERRLA, EOMI, Normocephalic Oral: Oral mucosa moist. No Gingival or Mucosal Lesions/ Ulcerations Neck: Supple, No JVD, Negative Carotid Bruits Chest wall/lungs: Air entry improved on right lung. No crepitation/rhonchi. Patient has mid chest to epigastric ventral hernia, chronic Cardiovascular: Regular rate, Regular Rhythm, Normal S1, Normal S2, mechanical aortic valve sound. Abdomen: Bowel Sounds Present, Soft, Non Tender, with epigastric hernia. Does not seem obstructed. : No acute drop in urine output/oliguria.1300 mL urine documented on 11/07. No renal angle tenderness. No suprapubic tenderness. Extremities: 1+ bilateral pitting edema, Capillary Refill Less than 3 Seconds Skin: Bilateral feet ulcer. Right second toe ulcer with exposed bone nonhealing, seems nonviable. Right first toe amputated. Left second toe with chronic ulcer to subcutaneous tissue. Musculoskeletal: No Tenderness to Palpation of Joints or Extremities. ROM severely limited. Decreased mobility. Neurological: Cranial nerves II-XII grossly intact, DTR 2+/4, muscle strength 4+/5 at knees and hip joints. Psych/Mental Status: Flat affect. Assessment & Plan Assessment/Plan (1) Acute hypercapnic respiratory failure: (2) Encephalopathy acute: (3) Chronic combined systolic and diastolic CHF (congestive heart failure): (4) Type 2 diabetes mellitus: (5) Atherosclerosis of lower extremity with ulceration: PLAN: Plan 1. Acute hypercapnic respiratory failure. * -AECHF vs AECOPD vs R pleural effusion, less likely PNA given wbc WNL and no left shift * -CXR remonstrated right pleural effusion with increased interstitial lung markings * -ABG with pH of 7.34 with a PO2 of 95 and a PCO2 of 58.3 patient placed on BiPAP * -BNP 512, has had higher in the past but does have persistent R pleural eff usion and sounds more congested * -40iv lasix qday * Heart failure core measures including intake and output, fluid restriction less than 1500 mL, daily weight monitoring, kidney and electrolytes monitoring * On BiPAP. * -COVID, respiratory panel and urinary antigens are negative. 11/01: . Continue diuresis. EF 40 to 45% which report identifies as slightly improved LV systolic dysfunction from September 22, 2021. Repeat chest x-ray shows large right pleural effusion with ventral hernia 11/02: Patient had 400 mill urine output over last 2 days. Still short of breath probably due to large right pleural effusion. Discussed with the liquid waste treatment plant operator and IR, Dr. Starkey. Ultrasound-guided thoracocentesis ordered and plan for thoracocentesis in a.m. if INR permits 11/03: Positive fluid balance about 2 L. 450 mill urine output yesterday. Vitamin K given in order to correct INR. Thoracocentesis ordered for tomorrow AM. On Lasix 40 IV daily. Spironolactone increased to 50 mg daily. Discussed with the liquid waste treatment plant operator. 11/05: Increase in creatinine from 0.6-1.43 consistent with ZOFIA, prerenal due to fluid shift from Lasix and thoracocentesis. Hold Lasix. 11/06: Continue holding furosemide. Continue BiPAP support at night. 11/07: Continue holding Lasix. Potassium 3.5. Spironolactone dose increased to 75 mg daily. 11/08: Spironolactone held. Potassium normal. 2. Perioperative management of Right second toe nonhealing ulcer, Necrosis of bone/chronic osteomyelitis and left second toe subcutaneous ulcer wound cx positive for MRSA and kocuria kristinae -11/01: Patient was evaluated by flap lining binder and had bedside debridement. Concern of potential osteomyelitis and if that may be will need amputation. ESR mildly elevated Today. Patient on IV vancomycin. Prelim urine culture shows GNR possible Pseudomonas. Blood culture negative for more than 48 hours. Urine culture shows GNR possible Pseudomonas [id number] colonies. It is in nonpathologic range and therefore will leave on ID. 11/02: Vascular surgery consulted.Discussed with the [place] vascular PA. INR is 3.0 therefore warfarin is held. If INR is 2 by we will proceed with angio if not we will plan for angio early next week instead. Once INR is 2 we will start on heparin drip to bridge for procedure. Patient is high risk given for small procedure to open because of chronic cardiac and respiratory conditions. 11/03: INR 3.2. Last dose of warfarin was on 11/01. Monitor INR daily. 11/05: Sputum culture growing Proteus. Started on Unasyn. Dr. Kendrick May will not be able to do angiogram before Tuesday. 11/06: Discussed with Dr. Lozano. Dr. May said the surgical wound will not heal until he do angiogram. He might need dilatation of big arteries and good runoff. Continue IV antibiotics. Plan for angiogram on next Tuesday and then surgery on . 3. Acute exacerbation of chronic systolic and diastolic heart failure * -Last echocardiogram 09/22/2021 showed EF of 30% with stage III diastolic dysfunction 11/02: Repeat Echo reported EF 40 to 45% with normal appearing bioprosthetic aortic valve. In comparison to echo September 22, improvement in LV systolic function. Toprol-XL increased to 100 mg daily. 10/19/18: [employer] consulted. Portable chest x-ray ordered . Patient has large right pleural effusion. Had right-sided thoracocentesis, 1850 mL fluid drained in July 2022. 4. #hx R pleural effusion * -Low-dose lung CT 09/29/2022 with large right pleural effusion and associated a telectasis as well as a midline ventral hernia containing fat and bowel loops with diffuse induration of subcutaneous fat that had suggested anasarca. * Repeat chest x-ray unchanged as mentioned above 11/05: Patient had 1600 mL thoracocentesis, Araseli-colored fluid. As per lights criteria fluid analysis consistent with transudate. Cell differential shows mainly mononuclear cells. 96.8%. Fluid culture pending. 11/08: Fluid cytology negative for malignant cells.pH 7.4 normal. Fluid culture reported no growth including anaerobic culture. #Hx of underlying lung dz * -Had presumed to have COPD but recent PFTs 10/27 actually with moderately severe restrictive ventilatory defect with a symmetric reduction diffusion capacity and possible some stigmata of concomitant small airway disease which is less consistent with COPD * -Will need to continue following with pulm #Acute encephalopathy, likely metabolic encephalopathy from hypercapnia. -11/01: Waxing and waning course. But today patient seems in lucid and normal behavior.on schedule melatonin nightly, small dose of Risperdal 0.25 mg twice d aily if unsuccessful #Hyperkalemia resolved. * -Unclear etiology- resolved after lasix and recheck * -Receiving Lasix * -EKG heart rate 81 bpm and normal sinus rhythm with nonspecific T wave changes but no peaked T waves * -Hold home potassium supplementation 11/06: K3.5. Patient on spironolactone. Potassium supplementation discontinued 11/07: ZOFIA due to diuretic and thoracocentesis, prerenal etiology from fluid shift. Lasix on hold. Continue spironolactone as potassium is low.. Creatinine stable for last 2 days 11/08: Creatinine went up although no acute rise. Seems mainly prerenal from diuretic and thoracocentesis. [employer] Specialist consulted for preop optimization prior to lower extremity angiogram and to amputation #?History of DVT * -Previous documentation of DVT in old note but not documented elsewhere, will try to clarify * -Chronically on Coumadin #Coronary disease status post CABG 04/2020/mechanical [facility] AVR/PAD s/p fempop bypass * -Cont asa, statin * -Followed by vascular on outpatient basis, has had previous intervention for breast peripheral artery disease * -INR 3.3, continue coumadin, daily INRs * -If subtherapeutic will need bridged with heparin given mechanical engineering officer valve -10/31: INR 2.9. Has mechanical valve, will need daily INRs and close monitoring 11/05: INR is 1.7. Patient is started on IV heparin drip 11/06: Warfarin resumed at lower dose 3 mg daily for next 2 days with daily follow-up INR and then discontinue on Tuesday a.m. for surgical procedure as mentioned above. Continue IV heparin drip. 11/07 INR 1.5. Continue warfarin today 11/08: INR 1.7. Continue warfarin today and then hold for procedure. Continue IV heparin. #Type 2 diabetes mellitus * -Glucose checks and sliding scale insulin * -Long-acting insulin 11/08: Glucose is well controlled. Continue the same insulin regimen. #DVT ppx: Therapeutic on Coumadin Clinical Impression(s) from Imaging Studies Chest X-Ray 10/29/22 15:00 IMPRESSION: There is a right pleural effusion. Epigastric ventral hernia visualized extending along the right para midline. The hernia likely contains colon. Electronically Signed: Carson Morris MD at 15:30 EDT Reading Location ID and State: [facility] / [place] , Service support , Echocardiogram 10/29/22 16:25 Interpretation Summary The estimated ejection fraction is 40-45 %. Normal-appearing bioprosthetic aortic valve In comparison to previous echo in September 22, 2021 Improvement in LV systolic function. Ordering Physician: Ann Marie Cox Referring Physician: Saurabh Hernandez Chi Performed By: Mariam Laboy, RDCS, RVT Chest X-Ray 10/30/22 05:05 IMPRESSION: 1. Large ventral hernia again seen overlying the right side of the chest. 2. Large right pleural effusion similar to the prior exam. Electronically Signed: Jose Cruz English MD at 7:49 EDT , Charges/Coding Visit Charges Inpatient E&M: 03102 Subs Hosp L2
--- NOTE | 2022-11-08 14:12 | PCM.PN.ID ---
Physical Exam Narrative Feeling about the same, mild dyspnea, no fever Const alert and no apparent distress General Appearance: cooperative Resp Auscultation: wheezes Cardio regular rate and regular rhythm GI soft to palpation, non-tender and non-distended Skin Skin Narrative: foot wrapped ID ID: Route of nutrition/ use of supplements: [] Nutritional Intake: [] IV Site: [] Abreu Catheter: [] Assessment & Plan Assessment/Plan (1) Non-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: PLAN: On vanc. Recent wound cx with MRSA and kocuria. Amputation planned. Podiatry following. Ucx with only small growth pseudomonas, no urinary complaints. Will follow
--- NOTE | 2022-11-08 17:05 | PCM.RX.CS ---
Consult Pharmacy has been consulted to manage selected antiobiotic: Vancomycin Type of Consult: Follow-up Suspected Infection: Osteomyelitis Labs: Sodium 136 mmol/L (136-145) 11/08/22 05:20 Potassium 3.7 mmol/L (3.5-5.1) 11/08/22 05:20 Chloride 107 mmol/L (98-107) 11/08/22 05:20 Carbon Dioxide 26.0 mmol/L (21.0-32.0) 11/08/22 05:20 Anion Gap 3 (5-15) L 11/08/22 05:20 BUN 52 mg/dL (7-18) H 11/08/22 05:20 Creatinine 1.62 mg/dL (0.70-1.30) H 11/08/22 05:20 Est GFR (MDRD) Af Amer 55 mL/min (>60) L 11/08/22 05:20 Est GFR (MDRD) Non-Af 45 mL/min (>60) L 11/08/22 05:20 BUN/Creatinine Ratio 32.1 RATIO (10-20) H 11/08/22 05:20 Glucose 162 mg/dL (74-106) H 11/08/22 05:20 Vancomycin Trough 29.9 ug/mL (5.0-15.0) H 11/04/22 12:35 Random Vancomycin 17.7 ug/mL (0.0-15.0) H 11/08/22 05:20 Microbiology: Microbiology 11/05/22 09:00 Fluid - Thoracentesis Fluid Gram Stain - Final 11/05/22 09:00 Fluid - Thoracentesis Fluid Body Fluid Culture - Final Culture exhibits no growth. 11/05/22 09:00 Fluid - Thoracentesis Fluid Anaerobic Culture - Preliminary No growth in 48 hours. 11/02/22 23:30 Sputum, Expectorated/Coughed Gram Stain - Final 11/02/22 23:30 Sputum, Expectorated/Coughed Respiratory Culture - Final Proteus mirabilis 10/29/22 19:29 Blood Culture (Wb) - Right Hand Blood Culture - Final No growth in 5 days. 10/29/22 19:20 Blood Culture (Wb) - Anticubital Right Blood Culture - Final No growth in 5 days. 10/30/22 17:38 Urine, Random Urine Culture - Final Pseudomonas aeruginosa 10/30/22 17:38 Urine, Clean Catch Legionella Antigen - Final 10/30/22 17:38 Urine, Clean Catch Streptococcus pneumoniae Antigen (M - Final 10/29/22 17:30 Mucosa - Nose Respiratory Panel (PCR) - Final 10/29/22 17:30 Nasal Secretion SARS-CoV-2 & FLU Antigen (Rapid) - Final Goal Trough: 15-20 mcg/mL Pharmacy Plan for Drug Dosing: VANCOMYCIN LEVEL RECEIVED Current Vancomycin Dose: Last dose was 1000mg Number of Doses Received: Vancomycin Level: random level 17.7 Hours Since Last Dose: 88 hours since last dose Renal Function: SrCr 1.62 Renal Function Trend: SrCr increasing Lab/Micro: Vancomycin Plan/Comments: recommend a 1000mg x1 dose due to SrCr increasing and previously elevated levels. Random level 11/09/22 at 0600 Pending Level: 11/09/22 at 0600 Pharmacy Service will continue to monitor and adjust dosing as required. Follow-Up Labs: Trough Vancomycin - 11/09/22 at 0600 (random level)
[2022-11-08 17:31] LABS: Bedside Glucose 177 mg/dL (74-106)
[2022-11-08] MEDS: HEPARIN/D5w 25,000 UNITS 25,000 UNITS/250 ML IV.SOLN. 9 UNITS CONT INF (19:20)
[2022-11-08] MEDS: MELATONIN 3 MG TABLET PO (20:22)
[2022-11-08] MEDS: Atorvastatin Calcium 40 MG Tablet PO (20:22)
[2022-11-08 23:30] LABS: Bedside Glucose 209 mg/dL (74-106)
[2022-11-09] VITALS (11 sets, daily range): BP systolic 138–149; BP diastolic 65–82; PULSE 62–71; RESP 18–24; TEMP 36.2–37.1; O2SAT 92–100; BMI 21.4
[2022-11-09] MEDS: Insulin Lispro 100 UNIT/ML INSULN.PEN SC ×4 (06:26→21:05)
[2022-11-09 06:51] LABS: Prothrombin Time (Protime)PT. 22.6 SECONDS (11.7-14.9)
[2022-11-09 06:52] LABS: Partial Thromboplast Time 56.8 Seconds (24.1-36.2)
[2022-11-09 07:00] LABS: Anion Gap 3 (5-15); BUN 59 mg/dL (7-18); BUN/Creat Ratio 36.9 RATIO (10-20); Calcium,Total 8.3 mg/dL (8.5-10.1); Chloride 106 mmol/L (98-107); EST Glomerular Filtration Rate 46 mL/min (>60); Est Glom Filt Rate - Afr Amer 55 mL/min (>60); Estimated Creatinine Clearance 43.08 ml/min; Glucose 143 mg/dL (74-106); Sodium Level 135 mmol/L (136-145); Vancomycin, Random Level 19.6 ug/mL (0.0-15.0)
[2022-11-09] MEDS: Ipratropium/Albuterol Sulfate 3 ML AMPUL.NEB INHALATION ×4 (07:06→19:50)
[2022-11-09 07:11] LABS: Bedside Glucose 157 mg/dL (74-106)
--- NOTE | 2022-11-09 07:47 | PCM.RX.CS ---
Consult Pharmacy has been consulted to manage selected antiobiotic: Vancomycin Type of Consult: Follow-up Prior Doses of Antibiotics Received/Current Regimen: Medications Discontinued Medications Vancomycin HCl (Vancomycin) 1,000 mg in 200 mls @ 200 mls/hr IV X1 ONE Stop: 11/08/22 08:59 Last Admin: 11/08/22 10:10 Dose: Infused Labs: Sodium 135 mmol/L (136-145) L 11/09/22 05:35 Potassium 4.0 mmol/L (3.5-5.1) 11/09/22 05:35 Chloride 106 mmol/L (98-107) 11/09/22 05:35 Carbon Dioxide 26.0 mmol/L (21.0-32.0) 11/09/22 05:35 Anion Gap 3 (5-15) L 11/09/22 05:35 BUN 59 mg/dL (7-18) H 11/09/22 05:35 Creatinine 1.60 mg/dL (0.70-1.30) H 11/09/22 05:35 Est GFR (MDRD) Af Amer 55 mL/min (>60) L 11/09/22 05:35 Est GFR (MDRD) Non-Af 46 mL/min (>60) L 11/09/22 05:35 BUN/Creatinine Ratio 36.9 RATIO (10-20) H 11/09/22 05:35 Glucose 143 mg/dL (74-106) H 11/09/22 05:35 Vancomycin Trough 29.9 ug/mL (5.0-15.0) H 11/04/22 12:35 Random Vancomycin 19.6 ug/mL (0.0-15.0) H 11/09/22 05:35 Microbiology: Microbiology 11/05/22 09:00 Fluid - Thoracentesis Fluid Gram Stain - Final 11/05/22 09:00 Fluid - Thoracentesis Fluid Body Fluid Culture - Final Culture exhibits no growth. 11/05/22 09:00 Fluid - Thoracentesis Fluid Anaerobic Culture - Preliminary No growth in 48 hours. 11/02/22 23:30 Sputum, Expectorated/Coughed Gram Stain - Final 11/02/22 23:30 Sputum, Expectorated/Coughed Respiratory Culture - Final Proteus mirabilis 10/29/22 19:29 Blood Culture (Wb) - Right Hand Blood Culture - Final No growth in 5 days. 10/29/22 19:20 Blood Culture (Wb) - Anticubital Right Blood Culture - Final No growth in 5 days. 10/30/22 17:38 Urine, Random Urine Culture - Final Pseudomonas aeruginosa 10/30/22 17:38 Urine, Clean Catch Legionella Antigen - Final 10/30/22 17:38 Urine, Clean Catch Streptococcus pneumoniae Antigen (M - Final 10/29/22 17:30 Mucosa - Nose Respiratory Panel (PCR) - Final 10/29/22 17:30 Nasal Secretion SARS-CoV-2 & FLU Antigen (Rapid) - Final Weight used for dosin kg Goal Trough: 15-20 mcg/mL Pharmacy Plan for Drug Dosing: Random 20 hour vancomycin level 19.6 mcg/dL, SCr stable. Recommend to start vancomycin 1000mg IV q24h with trough prior to 3rd dose. Pharmacy Service will continue to monitor and adjust dosing as required. Follow-Up Labs: Trough Vancomycin - 11/11 @ 0830
[2022-11-09] MEDS: Ferrous Sulfate 325 MG Tablet PO (08:27)
[2022-11-09] MEDS: Juven (unflavored) Packet 1 PACKET PO ×2 (08:28→17:20)
[2022-11-09] MEDS: Vancomycin IV 1,000 MG/200 ML BAG 200 MG IV (09:37)
[2022-11-09] MEDS: 0.9% Saline Lock 10 ML Syringe IV ×3 (09:37→17:21)
--- NOTE | 2022-11-09 09:40 | PCM.PN.REN ---
Subjective Subjective Sitting up in bed, finishing breakfast. Denies any complaints. No overnight events. Objective Data Objective Data Vital Signs: Vital Signs Temp Pulse Resp BP Pulse Ox O2 Del Method O2 Flow Rate 97.2 F L 62 18 138/65 H 97 Room Air 2 11/09/22 04:50 11/09/22 04:50 11/09/22 04:50 11/09/22 04:50 11/09/22 04:50 11/09/22 05:33 11/08/22 04:14 FiO2 25 10/31/22 23:18 Oxygen Flow Rate (L/min) 2 Oxygen Delivery Method [3] Room Air Oxygen Delivery Method [2] Room Air Oxygen Delivery Method [1 ( Room Air Initial Baseline)] Oxygen Delivery Method Room Air Weight: 69.9 kg Body Mass Index (BMI) 21.4 Intake & Output: Intake and Output for Last 24 Hours 11/07/22 11/08/22 11/09/22 23:59 23:59 23:59 Intake Total 836 / 836 986 / 986 112 / 112 Output Total 1300 / 1300 700 / 700 350 / 350 Balance -464 / -464 286 / 286 -238 / -238 Lab / Micro Data Result Diagrams: 11/08/22 05:20 11/09/22 05:35 Labs: Laboratory Results - last 24 hr 11/05/22 09:00: Fl Pathologist Comment Reviewed 11/05/22 09:00: Miscellaneous Cytology SEE PATHOLOGY REPORT 11/08/22 09:29: POC Glucose 164 H 11/08/22 10:49: POC Glucose 213 H 11/08/22 17:07: POC Glucose 177 H 11/08/22 22:52: POC Glucose 209 H 11/09/22 05:35: Sodium 135 L, Potassium 4.0, Chloride 106, Carbon Dioxide 26.0, Anion Gap 3 L, BUN 59 H, Creatinine 1.60 H, Estim Creat Clear Calc 43.08, Est GFR (MDRD) Af Amer 55 L, Est GFR (MDRD) Non-Af 46 L, BUN/Creatinine Ratio 36.9 H, Glucose 143 H, Calcium 8.3 L 11/09/22 05:35: PT 22.6 H, INR 2.0, APTT 56.8 H 11/09/22 05:35: Random Vancomycin 19.6 H 11/09/22 06:26: POC Glucose 157 H Micro: Microbiology 11/05/22 09:00 Fluid - Thoracentesis Fluid Gram Stain - Final 11/05/22 09:00 Fluid - Thoracentesis Fluid Body Fluid Culture - Final Culture exhibits no growth. 11/05/22 09:00 Fluid - Thoracentesis Fluid Anaerobic Culture - Preliminary No growth in 48 hours. 11/02/22 23:30 Sputum, Expectorated/Coughed Gram Stain - Final 11/02/22 23:30 Sputum, Expectorated/Coughed Respiratory Culture - Final Proteus mirabilis 10/29/22 19:29 Blood Culture (Wb) - Right Hand Blood Culture - Final No growth in 5 days. 10/29/22 19:20 Blood Culture (Wb) - Anticubital Right Blood Culture - Final No growth in 5 days. 10/30/22 17:38 Urine, Random Urine Culture - Final Pseudomonas aeruginosa 10/30/22 17:38 Urine, Clean Catch Legionella Antigen - Final 10/30/22 17:38 Urine, Clean Catch Streptococcus pneumoniae Antigen (M - Final 10/29/22 17:30 Mucosa - Nose Respiratory Panel (PCR) - Final 10/29/22 17:30 Nasal Secretion SARS-CoV-2 & FLU Antigen (Rapid) - Final Rhythm Strip Rhythm Strip: Sinus Rhythm Rate: 81 Ectopy: None Physical Exam Narrative Alert and oriented x3, no apparent distress Lung sounds faint expiratory wheezing. No rales or rhonchi Abdomen soft, nontender, positive bowel sounds x4 quadrants trace edema bilateral lower legs Assessment & Plan Assessment/Plan (1) ZOFIA (acute kidney injury): PLAN: - Nonoliguric acute kidney injury most likely secondary to ATN. Baseline creatinine seems to be normal. Creatinine normal on admission but creatinine increased over the last few days. Serum creatinine may have peaked at 1.62 mg/dL yesterday, his creatinine today is at 1.60. No acute indication for [employer]. Urine output is present. He had a CT abdomen on 10/27 without any hydronephrosis. He has been on vancomycin, levels have been on the higher side on and off. Urinalysis appears to be fairly benign. Medication list reviewed. Currently on ampicillin - Blood pressure is acceptable on Toprol. -Right pleural effusion, patient had thoracentesis on 11/05. Patient is now on room air. Wears BiPAP at night. Off diuretics (Lasix and Aldactone) due to increase in serum creatinine. Per cumulative I&O patient is net -1.7 L. We will continue off diuretics today, no need for IV fluids. -Right second toe wound, left second toe wound. ID following for antibiotics. Vascular following for possible angiogram tomorrow and then amputation planned. - Discussed with Dr. Cotter.
[2022-11-09] MEDS: Insulin Glargine-YFGN 100 UNIT/ML Pen 15 UNIT SC (09:44)
[2022-11-09] MEDS: Metoprolol(XL)Succ 100 MG Tablet PO (09:49)
[2022-11-09 10:10] LABS: Bedside Glucose 194 mg/dL (74-106)
[2022-11-09 12:16] LABS: Bedside Glucose 211 mg/dL (74-106)
[2022-11-09 16:10] LABS: Bedside Glucose 236 mg/dL (74-106)
--- NOTE | 2022-11-09 16:19 | PN.HOSP_ITS ---
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 (10/29/22) Peripheral vascular disease, unspecified (10/29/22) Chronic obstructive pulmonary disease, unspecified (10/29/22) Pleural effusion, not elsewhere classified (10/29/22) Acute respiratory failure with hypercapnia (10/29/22) Non-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 (10/29/22) Non-pressure chronic ulcer of other part of left foot with fat layer exposed (10/29/22) Osteomyelitis, unspecified (10/29/22) Other intraoperative and postprocedural complications and disorders of the mus culoskeletal system (10/29/22) Difficulty in walking, not elsewhere classified (10/29/22) Presence of aortocoronary bypass graft (10/29/22) Presence of prosthetic heart valve (10/29/22) Subjective Subjective Patient was seen and examined today, he has no complaints of any shortness of breath at this time, he has no complaints of any chest pain. Objective Data Objective Data Vital Signs: Vital Signs Temp Pulse Resp BP Pulse Ox O2 Del Method O2 Flow Rate 98 F 68 20 H 139/69 H 97 Room Air 2 11/09/22 10:50 11/09/22 11:04 11/09/22 11:04 11/09/22 10:50 11/09/22 13:46 11/09/22 13:46 11/09/22 10:50 FiO2 25 10/31/22 23:18 Oxygen Flow Rate (L/min) 2 Oxygen Delivery Method [3] Room Air Oxygen Delivery Method [2] Room Air Oxygen Delivery Method [1 ( Room Air Initial Baseline)] Oxygen Delivery Method Room Air Weight: 69.9 kg Body Mass Index (BMI) 21.4 Intake & Output: Intake and Output for Last 24 Hours 11/07/22 11/08/22 11/09/22 23:59 23:59 23:59 Intake Total 836 / 836 986 / 986 262 / 262 Output Total 1300 / 1300 700 / 700 550 / 550 Balance -464 / -464 286 / 286 -288 / -288 Lab / Micro Data Result Diagrams: 11/08/22 05:20 11/09/22 05:35 Labs: Laboratory Results - last 24 hr 11/08/22 17:07: POC Glucose 177 H 11/08/22 22:52: POC Glucose 209 H 11/09/22 05:35: Sodium 135 L, Potassium 4.0, Chloride 106, Carbon Dioxide 26.0, Anion Gap 3 L, BUN 59 H, Creatinine 1.60 H, Estim Creat Clear Calc 43.08, Est GFR (MDRD) Af Amer 55 L, Est GFR (MDRD) Non-Af 46 L, BUN/Creatinine Ratio 36.9 H , Glucose 143 H, Calcium 8.3 L 11/09/22 05:35: PT 22.6 H, INR 2.0, APTT 56.8 H 11/09/22 05:35: Random Vancomycin 19.6 H 11/09/22 06:26: POC Glucose 157 H 11/09/22 09:43: POC Glucose 194 H 11/09/22 11:42: POC Glucose 211 H 11/09/22 15:50: POC Glucose 236 H Micro: Microbiology 11/05/22 09:00 Fluid - Thoracentesis Fluid Gram Stain - Final 11/05/22 09:00 Fluid - Thoracentesis Fluid Body Fluid Culture - Final Culture exhibits no growth. 11/05/22 09:00 Fluid - Thoracentesis Fluid Anaerobic Culture - Preliminary No growth in 48 hours. 11/02/22 23:30 Sputum, Expectorated/Coughed Gram Stain - Final 11/02/22 23:30 Sputum, Expectorated/Coughed Respiratory Culture - Final Proteus mirabilis 10/29/22 19:29 Blood Culture (Wb) - Right Hand Blood Culture - Final No growth in 5 days. 10/29/22 19:20 Blood Culture (Wb) - Anticubital Right Blood Culture - Final No growth in 5 days. 10/30/22 17:38 Urine, Random Urine Culture - Final Pseudomonas aeruginosa 10/30/22 17:38 Urine, Clean Catch Legionella Antigen - Final 10/30/22 17:38 Urine, Clean Catch Streptococcus pneumoniae Antigen (M - Final 10/29/22 17:30 Mucosa - Nose Respiratory Panel (PCR) - Final 10/29/22 17:30 Nasal Secretion SARS-CoV-2 & FLU Antigen (Rapid) - Final Rhythm Strip Rhythm Strip: Sinus Rhythm Rate: 81 Ectopy: None Physical Exam Const alert and no apparent distress General Appearance: cooperative and well developed Orientation / Consciousness: awake, oriented to person and oriented to place HEENT normocephalic, head/scalp atraumatic and moist oral mucous membranes Eyes PERRL, EOMs intact bilaterally and conjunctivae normal Neck supple, no JVD, thyroid normal and no carotid bruits General: trachea midline Resp normal respiratory effort, no retractions, no use of accessory muscles and clear to auscultation bilaterally Auscultation: Negative for rales, rhonchi or wheezes Cardio regular rate, regular rhythm, S1 normal heart sound, S2 normal heart sound, no murmurs, no rub and no gallops Cardio Narrative: Mechanical heart sound is noted over the precordium GI normal to inspection, nondistended, normoactive bowel sounds, soft to palpation and non-tender GI Narrative: Patient has a large right upper quadrant ventral hernia extending into the lower chest area on the right Extremity no clubbing, cyanosis or edema Extremity Narrative: Right foot is wrapped with surgical dressing, this was not removed for inspection of the area Skin no rashes or lesions noted General Skin Exam: no breakdown Neuro oriented x3, CN's II-XII intact bilaterally, no focal motor deficits and no sensory deficits noted Sensorium / Orientation: awake and alert Speech: speech normal Psych affect normal Assessment & Plan Assessment/Plan (1) Acute exacerbation of CHF (congestive heart failure): PLAN: Plan 1. Acute exacerbation of systolic CHF-patient is currently on room air at this time, patient's diuretics are being held due to increased creatinine and BUN, patient's creatinine has been stable over the past several days. Cardiology is participating in his care. 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 Total clinical time spent by myself addressing the patient's medical issues, reviewing of his data, and collaborating with patient's care team: 50-minute Charges/Coding Visit Charges Inpatient E&M: 61106 Subs Hosp L3
--- NOTE | 2022-11-09 16:23 | PN.SURG_ITS ---
Subjective Subjective Patient overall stable, still complains of R foot/toe pain but otherwise no complaints. Remains on heparin drip. He did receive 3mg coumadin daily over the weekend in addition to heparin drip. INR today is 2.0. Objective Data Objective Data A&Ox3, NAD RRR Nonlabored respirations Surgical shoe on R foot, R toe wrapped, dressing intact with no bleed through or drainage noted Vital Signs: Vital Signs Temp Pulse Resp BP Pulse Ox O2 Del Method O2 Flow Rate 98 F 68 20 H 139/69 H 97 Room Air 2 11/09/22 10:50 11/09/22 11:04 11/09/22 11:04 11/09/22 10:50 11/09/22 13:46 11/09/22 13:46 11/09/22 10:50 FiO2 25 10/31/22 23:18 Oxygen Flow Rate (L/min) 2 Oxygen Delivery Method [3] Room Air Oxygen Delivery Method [2] Room Air Oxygen Delivery Method [1 ( Room Air Initial Baseline)] Oxygen Delivery Method Room Air Weight: 154 lb 1.65 oz Body Mass Index (BMI) 21.4 Intake & Output: Intake and Output for Last 24 Hours 11/07/22 11/08/22 11/09/22 23:59 23:59 23:59 Intake Total 836 / 836 986 / 986 262 / 262 Output Total 1300 / 1300 700 / 700 550 / 550 Balance -464 / -464 286 / 286 -288 / -288 Lab / Micro Data Result Diagrams: 11/08/22 05:20 11/09/22 05:35 Labs: Laboratory Results - last 24 hr 11/08/22 17:07: POC Glucose 177 H 11/08/22 22:52: POC Glucose 209 H 11/09/22 05:35: Sodium 135 L, Potassium 4.0, Chloride 106, Carbon Dioxide 26.0, Anion Gap 3 L, BUN 59 H, Creatinine 1.60 H, Estim Creat Clear Calc 43.08, Est GFR (MDRD) Af Amer 55 L, Est GFR (MDRD) Non-Af 46 L, BUN/Creatinine Ratio 36.9 H , Glucose 143 H, Calcium 8.3 L 11/09/22 05:35: PT 22.6 H, INR 2.0, APTT 56.8 H 11/09/22 05:35: Random Vancomycin 19.6 H 11/09/22 06:26: POC Glucose 157 H 11/09/22 09:43: POC Glucose 194 H 11/09/22 11:42: POC Glucose 211 H 11/09/22 15:50: POC Glucose 236 H Micro: Microbiology 11/05/22 09:00 Fluid - Thoracentesis Fluid Gram Stain - Final 11/05/22 09:00 Fluid - Thoracentesis Fluid Body Fluid Culture - Final Culture exhibits no growth. 11/05/22 09:00 Fluid - Thoracentesis Fluid Anaerobic Culture - Preliminary No growth in 48 hours. 11/02/22 23:30 Sputum, Expectorated/Coughed Gram Stain - Final 11/02/22 23:30 Sputum, Expectorated/Coughed Respiratory Culture - Final Proteus mirabilis 10/29/22 19:29 Blood Culture (Wb) - Right Hand Blood Culture - Final No growth in 5 days. 10/29/22 19:20 Blood Culture (Wb) - Anticubital Right Blood Culture - Final No growth in 5 days. 10/30/22 17:38 Urine, Random Urine Culture - Final Pseudomonas aeruginosa 10/30/22 17:38 Urine, Clean Catch Legionella Antigen - Final 10/30/22 17:38 Urine, Clean Catch Streptococcus pneumoniae Antigen (M - Final 10/29/22 17:30 Mucosa - Nose Respiratory Panel (PCR) - Final 10/29/22 17:30 Nasal Secretion SARS-CoV-2 & FLU Antigen (Rapid) - Final Rhythm Strip Rhythm Strip: Sinus Rhythm Rate: 81 Ectopy: None Assessment & Plan Assessment/Plan (1) Non-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: (2) Osteomyelitis of toe of right foot: (3) Atherosclerosis of lower extremity with ulceration: PLAN: Plan Patient's INR is 2.0 after receiving Coumadin over the weekend. INR scheduled to be redrawn tomorrow morning. As long as INR remains around 2 or less, plan to proceed with angiogram as scheduled tomorrow morning at 10AM. He is on heparin drip. Hold heparin starting at 0600 in preparation for angiogram. NPO for surgery as ordered/per protocol. Addressed all of patient questions/concerns regarding the procedure again today. He remains agreeable to proceed. Charges/Coding Visit Charges Inpatient E&M: 33991 Subs Hosp L2
[2022-11-09] MEDS: 0.9% Normal Saline 1,000 ML 15 ML IV (17:11)
[2022-11-09] MEDS: Atorvastatin Calcium 40 MG Tablet PO (21:04)
[2022-11-09] MEDS: MELATONIN 3 MG TABLET PO (21:04)
[2022-11-09] MEDS: HEPARIN/D5w 25,000 UNITS 25,000 UNITS/250 ML IV.SOLN. 9 UNITS CONT INF (21:19)
[2022-11-10] VITALS (11 sets, daily range): BP systolic 137–148; BP diastolic 71–83; PULSE 65–81; RESP 16–24; TEMP 36.1–36.7; O2SAT 95–100; BMI 33.3
[2022-11-10 00:15] LABS: Bedside Glucose 164 mg/dL (74-106)
[2022-11-10] MEDS: Ipratropium/Albuterol Sulfate 3 ML AMPUL.NEB INHALATION ×3 (04:00→22:57)
[2022-11-10 05:23] LABS: Absolute Lymphocyte Count 0.87 X10^3/uL (0.83-4.51); Absolute Neutrophil Count 3.2 X10^3/uL (2.0-7.7); Basophil# 0.02 X10^3/uL; Basophil% 0.4 % (0-1); Eosinophil# 0.21 X10^3/uL; Eosinophils% 4.3 % (0-5); Hemoglobin 9.9 g/dL (13.0-16.5); Lymphocyte # 0.87 X10^3/ul (0.83-4.51); Mean Corp Hgb Conc 30.9 g/dL (32-36); Mean Corpuscular Hgb 26.6 pg (27.0-32.0); Mean Platelet Vol. 10.7 fl (6.2-12.0); Monocyte# 0.53 X10^3/uL; NRBC Flagged by Analyzer 0 % (0-5); Neutrophil # 3.18 X10^3/uL (2.7-7.7); Neutrophil % 65.9 % (47-70); POSITIVE MORPHOLOGY YES; Platelet Count 150 K/mm3 (150-450); RBC Distribution Width SD 66.9 fl (35.1-43.9); Red Blood Count 3.72 M/mm3 (4.6-6.2); White Blood Count 4.8 K/mm3 (4.4-11.0)
[2022-11-10 05:25] LABS: Differential Indicated SCAN CRITERIA MET
[2022-11-10 05:33] LABS: International Normalized Ratio 2.5; Prothrombin Time (Protime)PT. 26.8 SECONDS (11.7-14.9)
[2022-11-10 05:35] LABS: Partial Thromboplast Time 95.2 Seconds (24.1-36.2)
[2022-11-10 05:45] LABS: Anion Gap 3 (5-15); BUN 59 mg/dL (7-18); BUN/Creat Ratio 42.4 RATIO (10-20); Calcium,Total 8.2 mg/dL (8.5-10.1); Chloride 107 mmol/L (98-107); Creatinine, Serum 1.39 mg/dL (0.70-1.30); EST Glomerular Filtration Rate 54 mL/min (>60); Est Glom Filt Rate - Afr Amer 65 mL/min (>60); Estimated Creatinine Clearance 53.42 ml/min; Glucose 149 mg/dL (74-106); Potassium 3.8 mmol/L (3.5-5.1); Sodium Level 137 mmol/L (136-145)
--- NOTE | 2022-11-10 05:55 | EKG12_ITS ---
Test Reason : AM EKG Blood Pressure : / mmHG Vent. Rate : 067 BPM Atrial Rate : 067 BPM P-R Int : 110 ms QRS Dur : 096 ms QT Int : 430 ms P-R-T Axes : -07 035 046 degrees QTc Int : 454 ms Sinus rhythm with short HI Low voltage QRS Confirmed by EVARISTO CHAPA, JORDAN ([id number]), tape editor STANISLAV OVIEDO ([id number]) on 11/11/2022 9:25:51 AM Referred By: Confirmed By:JORDAN LOERA MD
[2022-11-10 06:04] LABS: Acanthocytes RARE; Anisocytosis 1+; Differential Comment SCANNED; Microcytosis 1+
[2022-11-10] MEDS: Metoprolol(XL)Succ 100 MG Tablet PO (06:20)
--- NOTE | 2022-11-10 09:16 | CASEMGMT ---
Discharge Planning Updates sent to [place] via [facility]. Lizabeth Church
[2022-11-10] MEDS: Ferrous Sulfate 325 MG Tablet PO (09:55)
[2022-11-10] MEDS: Juven (unflavored) Packet 1 PACKET PO ×2 (09:55→16:33)
[2022-11-10] MEDS: Insulin Glargine-YFGN 100 UNIT/ML Pen 15 UNIT SC (09:59)
[2022-11-10] MEDS: Vancomycin IV 1,000 MG/200 ML BAG 200 MG IV (10:04)
--- NOTE | 2022-11-10 10:08 | PN_ITS ---
Subjective Subjective Patient stable no issues today Patient denies constitutional symptoms Patient denies pain vascular surgery canceled due to elevated INR Objective Data Objective Data Vital Signs: Vital Signs Temp Pulse Resp BP Pulse Ox O2 Del Method O2 Flow Rate 97.5 F L 71 18 137/74 H 95 Room Air 2 11/10/22 09:45 11/10/22 09:45 11/10/22 09:45 11/10/22 09:45 11/10/22 09:45 11/10/22 09:48 11/09/22 10:50 FiO2 25 10/31/22 23:18 Oxygen Flow Rate (L/min) 2 Oxygen Delivery Method [3] Room Air Oxygen Delivery Method [2] Room Air Oxygen Delivery Method [1 ( Room Air Initial Baseline)] Oxygen Delivery Method Room Air Weight: 108.2 kg Body Mass Index (BMI) 33.3 Intake & Output: Intake and Output for Last 24 Hours 11/08/22 11/09/22 11/10/22 23:59 23:59 23:59 Intake Total 986 / 986 1269.85 / 1269.85 192.7 / 192.7 Output Total 700 / 700 1100 / 1100 Balance 286 / 286 169.85 / 169.85 192.7 / 192.7 Lab / Micro Data Result Diagrams: 11/10/22 04:42 11/10/22 04:42 Labs: Laboratory Results - last 24 hr 11/09/22 09:43: POC Glucose 194 H 11/09/22 11:42: POC Glucose 211 H 11/09/22 15:50: POC Glucose 236 H 11/09/22 21:02: POC Glucose 164 H 11/10/22 04:42: Sodium 137, Potassium 3.8, Chloride 107, Carbon Dioxide 27.0, Anion Gap 3 L, BUN 59 H, Creatinine 1.39 H, Estim Creat Clear Calc 53.42, Est GFR (MDRD) Af Amer 65, Est GFR (MDRD) Non-Af 54 L, BUN/Creatinine Ratio 42.4 H, Glucose 149 H, Calcium 8.2 L 11/10/22 04:42: PT 26.8 H, INR 2.5, APTT 95.2 H* 11/10/22 04:42: WBC 4.8, RBC 3.72 L, Hgb 9.9 L, Hct 32.0 L, MCV 86.0, MCH 26.6 L , MCHC 30.9 L, RDW Std Deviation 66.9 H, RDW Coeff of Estrada 21.0 H, Plt Count 150, MPV 10.7, Immature Gran % (Auto) 0.400, Neut % (Auto) 65.9, Lymph % (Auto) 18.0 L, [place] % (Auto) 11.0 H, Eos % (Auto) 4.3, Baso % (Auto) 0.4, Absolute Neuts (auto) 3.2, Absolute Lymphs (auto) 0.87, Nucleated RBC % 0, Differential Comment SCANNED, Anisocytosis 1+, Microcytosis 1+, Acanthocytes (Spur) RARE Micro: Microbiology 11/05/22 09:00 Fluid - Thoracentesis Fluid Gram Stain - Final 11/05/22 09:00 Fluid - Thoracentesis Fluid Body Fluid Culture - Final Culture exhibits no growth. 11/05/22 09:00 Fluid - Thoracentesis Fluid Anaerobic Culture - Preliminary No growth in 48 hours. 11/02/22 23:30 Sputum, Expectorated/Coughed Gram Stain - Final 11/02/22 23:30 Sputum, Expectorated/Coughed Respiratory Culture - Final Proteus mirabilis 10/29/22 19:29 Blood Culture (Wb) - Right Hand Blood Culture - Final No growth in 5 days. 10/29/22 19:20 Blood Culture (Wb) - Anticubital Right Blood Culture - Final No growth in 5 days. 10/30/22 17:38 Urine, Random Urine Culture - Final Pseudomonas aeruginosa 10/30/22 17:38 Urine, Clean Catch Legionella Antigen - Final 10/30/22 17:38 Urine, Clean Catch Streptococcus pneumoniae Antigen (M - Final 10/29/22 17:30 Mucosa - Nose Respiratory Panel (PCR) - Final 10/29/22 17:30 Nasal Secretion SARS-CoV-2 & FLU Antigen (Rapid) - Final Radiography Diagnostic Testing: Radiology Impression Thoracentesis Ultrasound 11/05/22 07:42 IMPRESSION: Ultrasound-guided right thoracentesis. Electronically Signed: Lázaro Archer MD at 9:15 EDT , Chest X-Ray 11/05/22 08:40 IMPRESSION: Status post right thoracentesis. There is no evidence of pneumothorax. Small residual pleural parenchymal changes at the right lung base. Electronically Signed: Lázaro Archer MD at 9:44 EDT , Rhythm Strip Rhythm Strip: Sinus Rhythm Rate: 81 Ectopy: None Assessment & Plan Assessment/Plan (1) Non-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: (2) Type 2 diabetes mellitus: (3) Peripheral vascular occlusive disease: (4) Osteomyelitis of toe of right foot: PLAN: Plan Reviewed diagnostic data. Clinically there is osteomyelitis right 2nd toe. Wound left 2nd toe as well. Wounds stable. Wound to distal tuft left 2nd toe. Surgery canceled. We will plan for outpatient vascular surgery and amputation. Reviewed cultures of ulceration - MRSA and Kocuria Kristinae - patient is on antibiotic therapy per ID service at this time. Recommend discharge with heel weightbearing in surgical shoes bilateral feet. Recommend every other day dressing change with Betadine paint DSD to bilateral feet to prevent residual infection. Recommend discharge as care will proceed on an outpatient basis.
[2022-11-10] MEDS: Insulin Lispro 100 UNIT/ML INSULN.PEN SC ×3 (11:15→21:35)
[2022-11-10 11:50] LABS: Bedside Glucose 210 mg/dL (74-106)
--- NOTE | 2022-11-10 13:13 | CASEMGMT ---
Discharge Planning Updated therapy notes sent to [place] as requested via [facility]. Lizabeth Church
--- NOTE | 2022-11-10 13:20 | PCM.PN.ID ---
Physical Exam Narrative Feeling ok, discharge planned, no fever, no n/v/d. Const alert and no apparent distress Resp normal air movement and clear to auscultation bilaterally Cardio regular rate and regular rhythm GI soft to palpation, non-tender and non-distended Skin Skin Narrative: foot wrapped ID ID: Route of nutrition/ use of supplements: [] Nutritional Intake: [] IV Site: [] Abreu Catheter: [] Assessment & Plan Assessment/Plan (1) Non-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: PLAN: On vanc/unasyn. Recent wound cx with MRSA and kocuria. Amputation planned. Podiatry following. Ucx with only small growth pseudomonas, no urinary complaints. Ok for discharge with 10 more days po doxy and augmentin. If amputation does not happen next week, would recommend extending abx. Will follow as needed, d/w primary team
--- NOTE | 2022-11-10 13:43 | PCM.PN.REN ---
Subjective Subjective no new events Objective Data Objective Data Vital Signs: Vital Signs Temp Pulse Resp BP Pulse Ox O2 Del Method O2 Flow Rate 97.5 F L 71 18 137/74 H 95 Room Air 2 11/10/22 09:45 11/10/22 09:45 11/10/22 09:45 11/10/22 09:45 11/10/22 09:45 11/10/22 09:48 11/09/22 10:50 FiO2 25 10/31/22 23:18 Oxygen Flow Rate (L/min) 2 Oxygen Delivery Method [3] Room Air Oxygen Delivery Method [2] Room Air Oxygen Delivery Method [1 ( Room Air Initial Baseline)] Oxygen Delivery Method Room Air Weight: 108.2 kg Body Mass Index (BMI) 33.3 Intake & Output: Intake and Output for Last 24 Hours 11/08/22 11/09/22 11/10/22 23:59 23:59 23:59 Intake Total 986 / 986 1269.85 / 1269.85 783.72 / 783.72 Output Total 700 / 700 1100 / 1100 250 / 250 Balance 286 / 286 169.85 / 169.85 533.72 / 533.72 Lab / Micro Data Result Diagrams: 11/10/22 04:42 11/10/22 04:42 Labs: Laboratory Results - last 24 hr 11/09/22 15:50: POC Glucose 236 H 11/09/22 21:02: POC Glucose 164 H 11/10/22 04:42: Sodium 137, Potassium 3.8, Chloride 107, Carbon Dioxide 27.0, Anion Gap 3 L, BUN 59 H, Creatinine 1.39 H, Estim Creat Clear Calc 53.42, Est GFR (MDRD) Af Amer 65, Est GFR (MDRD) Non-Af 54 L, BUN/Creatinine Ratio 42.4 H, Glucose 149 H, Calcium 8.2 L 11/10/22 04:42: PT 26.8 H, INR 2.5, APTT 95.2 H* 11/10/22 04:42: WBC 4.8, RBC 3.72 L, Hgb 9.9 L, Hct 32.0 L, MCV 86.0, MCH 26.6 L, MCHC 30.9 L, RDW Std Deviation 66.9 H, RDW Coeff of Estrada 21.0 H, Plt Count 150, MPV 10.7, Immature Gran % (Auto) 0.400, Neut % (Auto) 65.9, Lymph % (Auto) 18.0 L, [place] % (Auto) 11.0 H, Eos % (Auto) 4.3, Baso % (Auto) 0.4, Absolute Neuts (auto) 3.2, Absolute Lymphs (auto) 0.87, Nucleated RBC % 0, Differential Comment SCANNED, Anisocytosis 1+, Microcytosis 1+, Acanthocytes (Spur) RARE 11/10/22 11:13: POC Glucose 210 H Micro: Microbiology 11/05/22 09:00 Fluid - Thoracentesis Fluid Gram Stain - Final 11/05/22 09:00 Fluid - Thoracentesis Fluid Body Fluid Culture - Final Culture exhibits no growth. 11/05/22 09:00 Fluid - Thoracentesis Fluid Anaerobic Culture - Final No growth in 5 days. 11/02/22 23:30 Sputum, Expectorated/Coughed Gram Stain - Final 11/02/22 23:30 Sputum, Expectorated/Coughed Respiratory Culture - Final Proteus mirabilis 10/29/22 19:29 Blood Culture (Wb) - Right Hand Blood Culture - Final No growth in 5 days. 10/29/22 19:20 Blood Culture (Wb) - Anticubital Right Blood Culture - Final No growth in 5 days. 10/30/22 17:38 Urine, Random Urine Culture - Final Pseudomonas aeruginosa 10/30/22 17:38 Urine, Clean Catch Legionella Antigen - Final 10/30/22 17:38 Urine, Clean Catch Streptococcus pneumoniae Antigen (M - Final 10/29/22 17:30 Mucosa - Nose Respiratory Panel (PCR) - Final 10/29/22 17:30 Nasal Secretion SARS-CoV-2 & FLU Antigen (Rapid) - Final Rhythm Strip Rhythm Strip: Sinus Rhythm Rate: 81 Ectopy: None Physical Exam Narrative Alert and oriented x3, no apparent distress Lung sounds faint expiratory wheezing. No rales or rhonchi Abdomen soft, nontender, positive bowel sounds x4 quadrants trace edema bilateral lower legs Assessment & Plan Assessment/Plan (1) ZOFIA (acute kidney injury): PLAN: - Nonoliguric acute kidney injury most likely secondary to ATN. Baseline creatinine seems to be normal. Creatinine normal on admission but creatinine increased over the last few days. Serum creatinine may have peaked at 1.62 mg/dL yesterday, his creatinine today is at 1.3. Urine output is present. He had a CT abdomen on 10/27 without any hydronephrosis. He has been on vancomycin, levels have been on the higher side on and off. Urinalysis appears to be fairly benign. Medication list reviewed.
--- NOTE | 2022-11-10 15:54 | PCM.PN.SRG ---
Subjective Subjective Patient is well, no acute events overnight. Stable R foot/toe pain. No N/V, F/C. Unfortunately, INR 2.5 this morning. Objective Data Objective Data A&Ox3, NAD RRR Nonlabored respirations R toe with dressing in place, no bleeding through dressing no not removed Vital Signs: Vital Signs Temp Pulse Resp BP Pulse Ox O2 Del Method O2 Flow Rate 98.0 F 72 18 144/80 H 100 Room Air 2 11/10/22 15:45 11/10/22 15:45 11/10/22 15:45 11/10/22 15:45 11/10/22 15:45 11/10/22 15:45 11/09/22 10:50 FiO2 25 10/31/22 23:18 Oxygen Flow Rate (L/min) 2 Oxygen Delivery Method [3] Room Air Oxygen Delivery Method [2] Room Air Oxygen Delivery Method [1 ( Room Air Initial Baseline)] Oxygen Delivery Method Room Air Weight: 238 lb 8.642 oz Body Mass Index (BMI) 33.3 Intake & Output: Intake and Output for Last 24 Hours 11/08/22 11/09/22 11/10/22 23:59 23:59 23:59 Intake Total 986 / 986 1269.85 / 1269.85 895.72 / 895.72 Output Total 700 / 700 1100 / 1100 250 / 250 Balance 286 / 286 169.85 / 169.85 645.72 / 645.72 Lab / Micro Data Result Diagrams: 11/10/22 04:42 11/10/22 04:42 Labs: Laboratory Results - last 24 hr 11/09/22 15:50: POC Glucose 236 H 11/09/22 21:02: POC Glucose 164 H 11/10/22 04:42: Sodium 137, Potassium 3.8, Chloride 107, Carbon Dioxide 27.0, Anion Gap 3 L, BUN 59 H, Creatinine 1.39 H, Estim Creat Clear Calc 53.42, Est GFR (MDRD) Af Amer 65, Est GFR (MDRD) Non-Af 54 L, BUN/Creatinine Ratio 42.4 H, Glucose 149 H, Calcium 8.2 L 11/10/22 04:42: PT 26.8 H, INR 2.5, APTT 95.2 H* 11/10/22 04:42: WBC 4.8, RBC 3.72 L, Hgb 9.9 L, Hct 32.0 L, MCV 86.0, MCH 26.6 L, MCHC 30.9 L, RDW Std Deviation 66.9 H, RDW Coeff of Estrada 21.0 H, Plt Count 150, MPV 10.7, Immature Gran % (Auto) 0.400, Neut % (Auto) 65.9, Lymph % (Auto) 18.0 L, [place] % (Auto) 11.0 H, Eos % (Auto) 4.3, Baso % (Auto) 0.4, Absolute Neuts (auto) 3.2, Absolute Lymphs (auto) 0.87, Nucleated RBC % 0, Differential Comment SCANNED, Anisocytosis 1+, Microcytosis 1+, Acanthocytes (Spur) RARE 11/10/22 11:13: POC Glucose 210 H Micro: Microbiology 11/05/22 09:00 Fluid - Thoracentesis Fluid Gram Stain - Final 11/05/22 09:00 Fluid - Thoracentesis Fluid Body Fluid Culture - Final Culture exhibits no growth. 11/05/22 09:00 Fluid - Thoracentesis Fluid Anaerobic Culture - Final No growth in 5 days. 11/02/22 23:30 Sputum, Expectorated/Coughed Gram Stain - Final 11/02/22 23:30 Sputum, Expectorated/Coughed Respiratory Culture - Final Proteus mirabilis 10/29/22 19:29 Blood Culture (Wb) - Right Hand Blood Culture - Final No growth in 5 days. 10/29/22 19:20 Blood Culture (Wb) - Anticubital Right Blood Culture - Final No growth in 5 days. 10/30/22 17:38 Urine, Random Urine Culture - Final Pseudomonas aeruginosa 10/30/22 17:38 Urine, Clean Catch Legionella Antigen - Final 10/30/22 17:38 Urine, Clean Catch Streptococcus pneumoniae Antigen (M - Final 10/29/22 17:30 Mucosa - Nose Respiratory Panel (PCR) - Final 10/29/22 17:30 Nasal Secretion SARS-CoV-2 & FLU Antigen (Rapid) - Final Rhythm Strip Rhythm Strip: Sinus Rhythm Rate: 81 Ectopy: None Assessment & Plan Assessment/Plan (1) Atherosclerosis of lower extremity with ulceration: PLAN: Unfortunately, angiogram today cancelled due to INR of 2.5 this morning after receiving coumadin over the weekend. At this point, will plan to coordinate rescheduling angiogram on an outpatient basis. Discussed with podiatry, they will plan for their procedure on outpatient basis after vascular intervention. Antibiotics per ID. Okay to transition back to coumadin from heparin for discharge. Okay to discharge from vascular perspective once otherwise medically stable. Our office will schedule outpatient follow-up. Charges/Coding Visit Charges Inpatient E&M: 13698 Subs Hosp L2
[2022-11-10 16:55] LABS: Bedside Glucose 179 mg/dL (74-106)
--- NOTE | 2022-11-10 17:56 | PCM.PN.HOSP ---
Reason for Visit Reason for Visit: Diagnoses Type 2 diabetes mellitus without complications (10/29/22) Nicotine dependence, unspecified, uncomplicated (10/29/22) Encephalopathy, unspecified (10/29/22) Essential (primary) hypertension (10/29/22) Secondary pulmonary arterial hypertension (10/29/22) Chronic combined systolic (congestive) and diastolic (congestive) heart failure (10/29/22) Heart failure, unspecified (10/29/22) Atherosclerosis of [place] arteries of other extremities with ulceration (10/29/22) Peripheral vascular disease, unspecified (10/29/22) Chronic obstructive pulmonary disease, unspecified (10/29/22) Pleural effusion, not elsewhere classified (10/29/22) Acute respiratory failure with hypercapnia (10/29/22) Non-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 (10/29/22) Non-pressure chronic ulcer of other part of left foot with fat layer exposed (10/29/22) Osteomyelitis, unspecified (10/29/22) Other intraoperative and postprocedural complications and disorders of the musculoskeletal system (10/29/22) Acute kidney failure, unspecified (10/29/22) Difficulty in walking, not elsewhere classified (10/29/22) Presence of aortocoronary bypass graft (10/29/22) Presence of prosthetic heart valve (10/29/22) Subjective Subjective Patient was seen and examined today, and angiogram was not able to be performed on the patient due to the fact his INR was elevated today, I talked with vascular surgery, they stated that it was not an emergency that the patient needed an angiogram during this hospitalization and that they would carried out next week. I talked briefly with infectious diseases about antibiotic coverage also today. At the time of this dictation, we are awaiting approval for the patient to go back to his detention as a skilled patient, this will need approval from his insurance carrier. Objective Data Objective Data Vital Signs: Vital Signs Temp Pulse Resp BP Pulse Ox O2 Del Method O2 Flow Rate 98.0 F 72 18 144/80 H 100 Room Air 2 11/10/22 15:45 11/10/22 15:45 11/10/22 15:45 11/10/22 15:45 11/10/22 15:45 11/10/22 15:45 11/09/22 10:50 FiO2 25 10/31/22 23:18 Oxygen Flow Rate (L/min) 2 Oxygen Delivery Method [3] Room Air Oxygen Delivery Method [2] Room Air Oxygen Delivery Method [1 ( Room Air Initial Baseline)] Oxygen Delivery Method Room Air Weight: 108.2 kg Body Mass Index (BMI) 33.3 Intake & Output: Intake and Output for Last 24 Hours 11/08/22 11/09/22 11/10/22 23:59 23:59 23:59 Intake Total 986 / 986 1269.85 / 1269.85 1015.72 / 1015.72 Output Total 700 / 700 1100 / 1100 500 / 500 Balance 286 / 286 169.85 / 169.85 515.72 / 515.72 Lab / Micro Data Result Diagrams: 11/10/22 04:42 11/10/22 04:42 Labs: Laboratory Results - last 24 hr 11/09/22 21:02: POC Glucose 164 H 11/10/22 04:42: Sodium 137, Potassium 3.8, Chloride 107, Carbon Dioxide 27.0, Anion Gap 3 L, BUN 59 H, Creatinine 1.39 H, Estim Creat Clear Calc 53.42, Est GFR (MDRD) Af Amer 65, Est GFR (MDRD) Non-Af 54 L, BUN/Creatinine Ratio 42.4 H, Glucose 149 H, Calcium 8.2 L 11/10/22 04:42: PT 26.8 H, INR 2.5, APTT 95.2 H* 11/10/22 04:42: WBC 4.8, RBC 3.72 L, Hgb 9.9 L, Hct 32.0 L, MCV 86.0, MCH 26.6 L, MCHC 30.9 L, RDW Std Deviation 66.9 H, RDW Coeff of Estrada 21.0 H, Plt Count 150, MPV 10.7, Immature Gran % (Auto) 0.400, Neut % (Auto) 65.9, Lymph % (Auto) 18.0 L, [place] % (Auto) 11.0 H, Eos % (Auto) 4.3, Baso % (Auto) 0.4, Absolute Neuts (auto) 3.2, Absolute Lymphs (auto) 0.87, Nucleated RBC % 0, Differential Comment SCANNED, Anisocytosis 1+, Microcytosis 1+, Acanthocytes (Spur) RARE 11/10/22 11:13: POC Glucose 210 H 11/10/22 16:30: POC Glucose 179 H Micro: Microbiology 11/05/22 09:00 Fluid - Thoracentesis Fluid Gram Stain - Final 11/05/22 09:00 Fluid - Thoracentesis Fluid Body Fluid Culture - Final Culture exhibits no growth. 11/05/22 09:00 Fluid - Thoracentesis Fluid Anaerobic Culture - Final No growth in 5 days. 11/02/22 23:30 Sputum, Expectorated/Coughed Gram Stain - Final 11/02/22 23:30 Sputum, Expectorated/Coughed Respiratory Culture - Final Proteus mirabilis 10/29/22 19:29 Blood Culture (Wb) - Right Hand Blood Culture - Final No growth in 5 days. 10/29/22 19:20 Blood Culture (Wb) - Anticubital Right Blood Culture - Final No growth in 5 days. 10/30/22 17:38 Urine, Random Urine Culture - Final Pseudomonas aeruginosa 10/30/22 17:38 Urine, Clean Catch Legionella Antigen - Final 10/30/22 17:38 Urine, Clean Catch Streptococcus pneumoniae Antigen (M - Final 10/29/22 17:30 Mucosa - Nose Respiratory Panel (PCR) - Final 10/29/22 17:30 Nasal Secretion SARS-CoV-2 & FLU Antigen (Rapid) - Final Rhythm Strip Rhythm Strip: Sinus Rhythm Rate: 81 Ectopy: None Physical Exam Narrative alert and no apparent distress General Appearance: cooperative and well developed Orientation / Consciousness: awake, oriented to person and oriented to place HEENT normocephalic, head/scalp atraumatic and moist oral mucous membranes Eyes PERRL, EOMs intact bilaterally and conjunctivae normal Neck supple, no JVD, thyroid normal and no carotid bruits General: trachea midline Resp normal respiratory effort, no retractions, no use of accessory muscles and clear to auscultation bilaterally Auscultation: Negative for rales, rhonchi or wheezes Cardio regular rate, regular rhythm, S1 normal heart sound, S2 normal heart sound, no murmurs, no rub and no gallops Cardio Narrative: Mechanical heart sound is noted over the precordium GI normal to inspection, nondistended, normoactive bowel sounds, soft to palpation and non-tender GI Narrative: Patient has a large right upper quadrant ventral hernia extending into the lower chest area on the right Extremity no clubbing, cyanosis or edema Extremity Narrative: Right foot is wrapped with surgical dressing, this was not removed for inspection of the area Skin no rashes or lesions noted General Skin Exam: Patient's right foot is wrapped with surgical dressing, the patient's left foot was not examined Neuro oriented x3, CN's II-XII intact bilaterally, no focal motor deficits and no sensory deficits noted Sensorium / Orientation: awake and alert Speech: speech normal Psych affect normal Assessment & Plan Assessment/Plan (1) Type 2 diabetes mellitus: (2) Acute exacerbation of CHF (congestive heart failure): PLAN: Plan 1. Acute exacerbation of systolic CHF-patient is currently on room air at this time, patient's diuretics are being held due to increased creatinine and BUN, patient's creatinine has been stable over the past several days. Cardiology is participating in his care. 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 #9 acute kidney injury-possibly due to ATN, vancomycin was discontinued, patient is being followed by nephrology. Total clinical time spent by myself addressing the patient's medical issues, reviewing of his data, and collaborating with patient's care team: 36-minutes Charges/Coding Visit Charges Inpatient E&M: 45002 Subs Hosp L2
[2022-11-10] MEDS: Atorvastatin Calcium 40 MG Tablet PO (21:37)
[2022-11-10] MEDS: MELATONIN 3 MG TABLET PO (21:37)
[2022-11-11] VITALS (11 sets, daily range): BP systolic 132–148; BP diastolic 57–79; PULSE 69–82; RESP 16–32; TEMP 36.1–36.5; O2SAT 91–100; BMI 33.3
[2022-11-11 01:01] LABS: Bedside Glucose 179 mg/dL (74-106)
[2022-11-11] MEDS: Ipratropium/Albuterol Sulfate 3 ML AMPUL.NEB INHALATION ×6 (03:08→23:05)
[2022-11-11 06:50] LABS: Bedside Glucose 146 mg/dL (74-106)
[2022-11-11 08:59] LABS: International Normalized Ratio 3.1; Prothrombin Time (Protime)PT. 31.4 SECONDS (11.7-14.9)
[2022-11-11 09:01] LABS: Vancomycin, Trough Level 24.1 ug/mL (5.0-15.0)
[2022-11-11] MEDS: Juven (unflavored) Packet 1 PACKET PO ×2 (09:56→16:37)
[2022-11-11] MEDS: Ferrous Sulfate 325 MG Tablet PO (09:56)
[2022-11-11] MEDS: Insulin Glargine-YFGN 100 UNIT/ML Pen 15 UNIT SC (09:58)
[2022-11-11] MEDS: Metoprolol(XL)Succ 100 MG Tablet PO (09:59)
--- NOTE | 2022-11-11 10:28 | PHA.PHARE_ITS ---
Consult Pharmacy has been consulted to manage selected antiobiotic: Vancomycin Type of Consult: Follow-up Prior Doses of Antibiotics Received/Current Regimen: 1 gm iv q24h Labs: Sodium 137 mmol/L (136-145) 11/10/22 04:42 Potassium 3.8 mmol/L (3.5-5.1) 11/10/22 04:42 Chloride 107 mmol/L (98-107) 11/10/22 04:42 Carbon Dioxide 27.0 mmol/L (21.0-32.0) 11/10/22 04:42 Anion Gap 3 (5-15) L 11/10/22 04:42 BUN 59 mg/dL (7-18) H 11/10/22 04:42 Creatinine 1.39 mg/dL (0.70-1.30) H 11/10/22 04:42 Est GFR (MDRD) Af Amer 65 mL/min (>60) 11/10/22 04:42 Est GFR (MDRD) Non-Af 54 mL/min (>60) L 11/10/22 04:42 BUN/Creatinine Ratio 42.4 RATIO (10-20) H 11/10/22 04:42 Glucose 149 mg/dL (74-106) H 11/10/22 04:42 Vancomycin Trough 24.1 ug/mL (5.0-15.0) H 11/11/22 08:12 Random Vancomycin 19.6 ug/mL (0.0-15.0) H 11/09/22 05:35 Microbiology: Microbiology 11/05/22 09:00 Fluid - Thoracentesis Fluid Gram Stain - Final 11/05/22 09:00 Fluid - Thoracentesis Fluid Body Fluid Culture - Final Culture exhibits no growth. 11/05/22 09:00 Fluid - Thoracentesis Fluid Anaerobic Culture - Final No growth in 5 days. 11/02/22 23:30 Sputum, Expectorated/Coughed Gram Stain - Final 11/02/22 23:30 Sputum, Expectorated/Coughed Respiratory Culture - Final Proteus mirabilis 10/29/22 19:29 Blood Culture (Wb) - Right Hand Blood Culture - Final No growth in 5 days. 10/29/22 19:20 Blood Culture (Wb) - Anticubital Right Blood Culture - Final No growth in 5 days. 10/30/22 17:38 Urine, Random Urine Culture - Final Pseudomonas aeruginosa 10/30/22 17:38 Urine, Clean Catch Legionella Antigen - Final 10/30/22 17:38 Urine, Clean Catch Streptococcus pneumoniae Antigen (M - Final 10/29/22 17:30 Mucosa - Nose Respiratory Panel (PCR) - Final 10/29/22 17:30 Nasal Secretion SARS-CoV-2 & FLU Antigen (Rapid) - Final Weight used for dosin kg Estimated Creatinine Clearance: 63 ml/min Goal Trough: 15-20 mcg/mL Pharmacy Plan for Drug Dosing: Trough today 24.1 (22 hrs post last dose) and elevated above desired range of 1 5-20mcg/ml. Will hold further dosing. CrCl estimated to be 63 ml/min using an adjusted body weight of 88.4kg. Random level ordered for tomorrow AM. Pharmacy Service will continue to monitor and adjust dosing as required. Follow-Up Labs: Trough Vancomycin - random 4.28.23 @0600
--- NOTE | 2022-11-11 10:31 | CASEMGMT ---
Discharge Planning Updated notes sent to Alec via [facility]. Lizabeth Church
[2022-11-11] MEDS: Insulin Lispro 100 UNIT/ML INSULN.PEN SC ×2 (11:36→16:34)
[2022-11-11 12:00] LABS: Bedside Glucose 200 mg/dL (74-106)
--- NOTE | 2022-11-11 14:04 | PCM.PN.REN ---
Subjective Subjective Sitting up in bed. No complaints Objective Data Objective Data Vital Signs: Vital Signs Temp Pulse Resp BP Pulse Ox O2 Del Method O2 Flow Rate 97.7 F L 79 20 H 136/73 H 96 Room Air 2 11/11/22 10:00 11/11/22 10:52 11/11/22 10:52 11/11/22 10:00 11/11/22 10:00 11/11/22 10:00 11/09/22 10:50 FiO2 25 10/31/22 23:18 Oxygen Flow Rate (L/min) 2 Oxygen Delivery Method [3] Room Air Oxygen Delivery Method [2] Room Air Oxygen Delivery Method [1 ( Room Air Initial Baseline)] Oxygen Delivery Method Room Air Weight: 108.4 kg Body Mass Index (BMI) 33.3 Intake & Output: Intake and Output for Last 24 Hours 11/09/22 11/10/22 11/11/22 23:59 23:59 23:59 Intake Total 1269.85 / 1269.85 1127.72 / 1127.72 452 / 452 Output Total 1100 / 1100 500 / 500 250 / 250 Balance 169.85 / 169.85 627.72 / 627.72 202 / 202 Lab / Micro Data Result Diagrams: 11/10/22 04:42 11/10/22 04:42 Labs: Laboratory Results - last 24 hr 11/10/22 16:30: POC Glucose 179 H 11/10/22 21:35: POC Glucose 179 H 11/11/22 06:25: POC Glucose 146 H 11/11/22 08:12: PT 31.4 H, INR 3.1 11/11/22 08:12: Vancomycin Trough 24.1 H 11/11/22 11:33: POC Glucose 200 H Micro: Microbiology 11/05/22 09:00 Fluid - Thoracentesis Fluid Gram Stain - Final 11/05/22 09:00 Fluid - Thoracentesis Fluid Body Fluid Culture - Final Culture exhibits no growth. 11/05/22 09:00 Fluid - Thoracentesis Fluid Anaerobic Culture - Final No growth in 5 days. 11/02/22 23:30 Sputum, Expectorated/Coughed Gram Stain - Final 11/02/22 23:30 Sputum, Expectorated/Coughed Respiratory Culture - Final Proteus mirabilis 10/29/22 19:29 Blood Culture (Wb) - Right Hand Blood Culture - Final No growth in 5 days. 10/29/22 19:20 Blood Culture (Wb) - Anticubital Right Blood Culture - Final No growth in 5 days. 10/30/22 17:38 Urine, Random Urine Culture - Final Pseudomonas aeruginosa 10/30/22 17:38 Urine, Clean Catch Legionella Antigen - Final 10/30/22 17:38 Urine, Clean Catch Streptococcus pneumoniae Antigen (M - Final 10/29/22 17:30 Mucosa - Nose Respiratory Panel (PCR) - Final 10/29/22 17:30 Nasal Secretion SARS-CoV-2 & FLU Antigen (Rapid) - Final Rhythm Strip Rhythm Strip: Sinus Rhythm Rate: 81 Ectopy: None Physical Exam Narrative Alert and oriented x3, no apparent distress Lung sounds clear, no rales or rhonchi Abdomen soft, nontender, positive bowel sounds x4 quadrants trace edema bilateral lower legs Assessment & Plan Assessment/Plan (1) ZOFIA (acute kidney injury): PLAN: - Nonoliguric acute kidney injury most likely secondary to ATN. Baseline creatinine seems to be normal. Creatinine normal on admission but creatinine increased for a few days. Serum creatinine peaked at 1.62 mg/dL (11/08), creatinine improved to 1.39 yesterday. No labs today. Labs ordered for morning. Urine output is present. He had a CT abdomen on 10/27 without any hydronephrosis. He has been on vancomycin, levels have been on the higher side on and off. Urinalysis appears to be fairly benign. -Osteomyelitis right second toe, left second toe ulcer; angiogram on hold due to elevated INR. Patient to follow-up with vascular after discharge. IV antibiotics ampicillin -Blood pressures acceptable on Toprol.
--- NOTE | 2022-11-11 16:25 | PN.HOSP_ITS ---
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 (10/29/22) Peripheral vascular disease, unspecified (10/29/22) Chronic obstructive pulmonary disease, unspecified (10/29/22) Pleural effusion, not elsewhere classified (10/29/22) Acute respiratory failure with hypercapnia (10/29/22) Non-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 (10/29/22) Non-pressure chronic ulcer of other part of left foot with fat layer exposed (10/29/22) Osteomyelitis, unspecified (10/29/22) Other intraoperative and postprocedural complications and disorders of the mus culoskeletal system (10/29/22) Acute kidney failure, unspecified (10/29/22) Difficulty in walking, not elsewhere classified (10/29/22) Presence of aortocoronary bypass graft (10/29/22) Presence of prosthetic heart valve (10/29/22) Subjective Subjective Patient was seen and examined today, he is wheezing after his aerosol treatment, it appears to me that these are most probably upper airway wheezing. Patient does not appear to be in any respiratory distress. Objective Data Objective Data Vital Signs: Vital Signs Temp Pulse Resp BP Pulse Ox O2 Del Method O2 Flow Rate 97.6 F L 74 18 148/79 H 100 Room Air 2 11/11/22 15:35 11/11/22 15:35 11/11/22 15:35 11/11/22 15:35 11/11/22 15:35 11/11/22 15:35 11/09/22 10:50 FiO2 25 10/31/22 23:18 Oxygen Flow Rate (L/min) 2 Oxygen Delivery Method [3] Room Air Oxygen Delivery Method [2] Room Air Oxygen Delivery Method [1 ( Room Air Initial Baseline)] Oxygen Delivery Method Room Air Weight: 108.4 kg Body Mass Index (BMI) 33.3 Intake & Output: Intake and Output for Last 24 Hours 11/09/22 11/10/22 11/11/22 23:59 23:59 23:59 Intake Total 1269.85 / 1269.85 1127.72 / 1127.72 564 / 564 Output Total 1100 / 1100 500 / 500 250 / 250 Balance 169.85 / 169.85 627.72 / 627.72 314 / 314 Lab / Micro Data Result Diagrams: 11/10/22 04:42 11/10/22 04:42 Labs: Laboratory Results - last 24 hr 11/10/22 16:30: POC Glucose 179 H 11/10/22 21:35: POC Glucose 179 H 11/11/22 06:25: POC Glucose 146 H 11/11/22 08:12: PT 31.4 H, INR 3.1 11/11/22 08:12: Vancomycin Trough 24.1 H 11/11/22 11:33: POC Glucose 200 H Micro: Microbiology 11/05/22 09:00 Fluid - Thoracentesis Fluid Gram Stain - Final 11/05/22 09:00 Fluid - Thoracentesis Fluid Body Fluid Culture - Final Culture exhibits no growth. 11/05/22 09:00 Fluid - Thoracentesis Fluid Anaerobic Culture - Final No growth in 5 days. 11/02/22 23:30 Sputum, Expectorated/Coughed Gram Stain - Final 11/02/22 23:30 Sputum, Expectorated/Coughed Respiratory Culture - Final Proteus mirabilis 10/29/22 19:29 Blood Culture (Wb) - Right Hand Blood Culture - Final No growth in 5 days. 10/29/22 19:20 Blood Culture (Wb) - Anticubital Right Blood Culture - Final No growth in 5 days. 10/30/22 17:38 Urine, Random Urine Culture - Final Pseudomonas aeruginosa 10/30/22 17:38 Urine, Clean Catch Legionella Antigen - Final 10/30/22 17:38 Urine, Clean Catch Streptococcus pneumoniae Antigen (M - Final 10/29/22 17:30 Mucosa - Nose Respiratory Panel (PCR) - Final 10/29/22 17:30 Nasal Secretion SARS-CoV-2 & FLU Antigen (Rapid) - Final Rhythm Strip Rhythm Strip: Sinus Rhythm Rate: 81 Ectopy: None Physical Exam Narrative alert and no apparent distress General Appearance: cooperative and well developed Orientation / Consciousness: awake, oriented to person and oriented to place HEENT normocephalic, head/scalp atraumatic and moist oral mucous membranes Eyes PERRL, EOMs intact bilaterally and conjunctivae normal Neck supple, no JVD, thyroid normal and no carotid bruits General: trachea midline Resp normal respiratory effort, no retractions, no use of accessory muscles and clear to auscultation bilaterally Auscultation: Negative for rales, rhonchi or wheezes Cardio regular rate, regular rhythm, S1 normal heart sound, S2 normal heart sound, no murmurs, no rub and no gallops Cardio Narrative: Mechanical heart sound is noted over the precordium GI normal to inspection, nondistended, normoactive bowel sounds, soft to palpation and non-tender GI Narrative: Patient has a large right upper quadrant ventral hernia extending into the lower chest area on the right Extremity no clubbing, cyanosis or edema Extremity Narrative: Right foot is wrapped with surgical dressing, this was not removed for inspection of the area. Skin no rashes or lesions noted General Skin Exam: Patient's right foot is wrapped with surgical dressing, the patient's left foot was not examined Neuro oriented x3, CN's II-XII intact bilaterally, no focal motor deficits and no sensory deficits noted Sensorium / Orientation: awake and alert Speech: speech normal Psych affect normal Assessment & Plan Assessment/Plan (1) Acute exacerbation of CHF (congestive heart failure): (2) Type 2 diabetes mellitus: PLAN: Plan 1. Acute exacerbation of systolic CHF-patient is currently on room air at this time, patient's diuretics are being held due to increased creatinine and BUN, patient's creatinine has been stable over the past several days. Cardiology is participating in his care. 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-continue anticoagulation with warfarin, INR was 3.1 today #6 coronary artery disease-stable at this time #7 peripheral vascular disease-patient was unable to undergo his angiogram yesterday due to elevated INR, it will not be performed until next week sometime #8 osteomyelitis of the right toe-patient will undergo a right second digit amputation and left second digit partial amputation due to deformity-podiatry is participating in his care, this will happen after the patient undergoes an angiogram next week #9 acute kidney injury-possibly due to ATN, vancomycin was discontinued-I talked with ID today, patient is being followed by nephrology. Total clinical time spent by myself addressing the patient's medical issues, reviewing of his data, and collaborating with patient's care team: 35-minutes Charges/Coding Visit Charges Inpatient E&M: 69832 Subs Hosp L2
[2022-11-11 17:00] LABS: Bedside Glucose 245 mg/dL (74-106)
[2022-11-11] MEDS: Atorvastatin Calcium 40 MG Tablet PO (21:36)
[2022-11-11] MEDS: MELATONIN 3 MG TABLET PO (21:36)
[2022-11-11] MEDS: 0.9% Saline Lock 10 ML Syringe IV (21:36)
[2022-11-11 22:00] LABS: Bedside Glucose 160 mg/dL (74-106)
[2022-11-12] VITALS (9 sets, daily range): BP systolic 138–158; BP diastolic 66–85; PULSE 65–83; RESP 18–30; TEMP 36.6–36.9; O2SAT 92–100; BMI 33.4
[2022-11-12] MEDS: Ipratropium/Albuterol Sulfate 3 ML AMPUL.NEB INHALATION ×3 (03:20→11:09)
[2022-11-12 06:05] LABS: Anion Gap 4 (5-15); BUN 58 mg/dL (7-18); BUN/Creat Ratio 39.7 RATIO (10-20); Calcium,Total 8.2 mg/dL (8.5-10.1); Chloride 107 mmol/L (98-107); Creatinine, Serum 1.46 mg/dL (0.70-1.30); EST Glomerular Filtration Rate 51 mL/min (>60); Est Glom Filt Rate - Afr Amer 61 mL/min (>60); Estimated Creatinine Clearance 50.86 ml/min; Glucose 148 mg/dL (74-106); Potassium 3.7 mmol/L (3.5-5.1); Sodium Level 137 mmol/L (136-145)
[2022-11-12 07:00] LABS: Bedside Glucose 141 mg/dL (74-106)
--- NOTE | 2022-11-12 07:43 | CASEMGMT ---
Insurance is requesting a peer to peer to be done by 10am 11-12. option 5. SW will notify physician. Ashlyn ROBERTS
[2022-11-12] MEDS: Juven (unflavored) Packet 1 PACKET PO (08:46)
[2022-11-12] MEDS: Ferrous Sulfate 325 MG Tablet PO (08:46)
[2022-11-12] MEDS: Insulin Glargine-YFGN 100 UNIT/ML Pen 15 UNIT SC (08:46)
[2022-11-12] MEDS: Metoprolol(XL)Succ 100 MG Tablet PO (08:46)
--- NOTE | 2022-11-12 09:12 | PCM.PN.REN ---
Subjective Subjective No overnight events. Sitting up eating breakfast. No complaints. Objective Data Objective Data Vital Signs: Vital Signs Temp Pulse Resp BP Pulse Ox O2 Del Method O2 Flow Rate 97.9 F 70 19 H 158/85 H 96 Room Air 2 11/12/22 08:44 11/12/22 08:46 11/12/22 08:44 11/12/22 08:44 11/12/22 08:44 11/12/22 08:55 11/09/22 10:50 FiO2 25 10/31/22 23:18 Oxygen Flow Rate (L/min) 2 Oxygen Delivery Method [3] Room Air Oxygen Delivery Method [2] Room Air Oxygen Delivery Method [1 ( Room Air Initial Baseline)] Oxygen Delivery Method Room Air Weight: 108.8 kg Body Mass Index (BMI) 33.4 Intake & Output: Intake and Output for Last 24 Hours 11/10/22 11/11/22 11/12/22 23:59 23:59 23:59 Intake Total 1127.72 / 1127.72 916 / 916 112 / 112 Output Total 500 / 500 850 / 850 Balance 627.72 / 627.72 66 / 66 112 / 112 Lab / Micro Data Result Diagrams: 11/10/22 04:42 11/12/22 05:10 Labs: Laboratory Results - last 24 hr 11/11/22 11:33: POC Glucose 200 H 11/11/22 16:32: POC Glucose 245 H 11/11/22 21:33: POC Glucose 160 H 11/12/22 05:10: Sodium 137, Potassium 3.7, Chloride 107, Carbon Dioxide 26.0, Anion Gap 4 L, BUN 58 H, Creatinine 1.46 H, Estim Creat Clear Calc 50.86, Est GFR (MDRD) Af Amer 61, Est GFR (MDRD) Non-Af 51 L, BUN/Creatinine Ratio 39.7 H, Glucose 148 H, Calcium 8.2 L 11/12/22 06:35: POC Glucose 141 H Micro: Microbiology 11/05/22 09:00 Fluid - Thoracentesis Fluid Gram Stain - Final 11/05/22 09:00 Fluid - Thoracentesis Fluid Body Fluid Culture - Final Culture exhibits no growth. 11/05/22 09:00 Fluid - Thoracentesis Fluid Anaerobic Culture - Final No growth in 5 days. 11/02/22 23:30 Sputum, Expectorated/Coughed Gram Stain - Final 11/02/22 23:30 Sputum, Expectorated/Coughed Respiratory Culture - Final Proteus mirabilis 10/29/22 19:29 Blood Culture (Wb) - Right Hand Blood Culture - Final No growth in 5 days. 10/29/22 19:20 Blood Culture (Wb) - Anticubital Right Blood Culture - Final No growth in 5 days. 10/30/22 17:38 Urine, Random Urine Culture - Final Pseudomonas aeruginosa 10/30/22 17:38 Urine, Clean Catch Legionella Antigen - Final 10/30/22 17:38 Urine, Clean Catch Streptococcus pneumoniae Antigen (M - Final 10/29/22 17:30 Mucosa - Nose Respiratory Panel (PCR) - Final 10/29/22 17:30 Nasal Secretion SARS-CoV-2 & FLU Antigen (Rapid) - Final Rhythm Strip Rhythm Strip: Sinus Rhythm Rate: 81 Ectopy: None Physical Exam Narrative Alert and oriented x3, no apparent distress S1, S2, RRR Lung sounds clear anteriorly, diminished breath sounds posterior bases with faint rales this morning Abdomen soft, nontender, positive bowel sounds x4 quadrants trace edema bilateral lower legs Assessment & Plan Assessment/Plan (1) ZOFIA (acute kidney injury): PLAN: - Nonoliguric acute kidney injury most likely secondary to ATN. Baseline creatinine seems to be normal. Creatinine normal on admission but creatinine increased over a few days. Serum creatinine peaked at 1.62 mg/dL (11/08), creatinine 1.46mg/dL today. Urine output is present. He had a CT abdomen on 10/27 without any hydronephrosis. He has been on vancomycin, levels have been on the higher side on and off. Urinalysis appears to be fairly benign. -Osteomyelitis right second toe, left second toe ulcer; angiogram on hold due to elevated INR. Patient to follow-up with vascular after discharge. IV antibiotics ampicillin - history of systolic heart failure, valvular heart disease with mechanical aortic valve. Patient is on room air. This morning diminished breath sounds with faint rales. Will restart back on Lasix 40 mg daily (this was his home dose). Patient was receiving IV diuretics and Aldactone but due to increased creatinine these were put on hold. -Blood pressures acceptable on Toprol. - Ok for discharge per renal when cleared by primary team. discharge planning in progress, possibly back to [place] today. Will arrange for hospital follow-up.
--- NOTE | 2022-11-12 09:18 | CASEMGMT ---
Patient will likely be discharged back to [place] today. KALANI called [facility] as required by patient's insurance to arrange transportation. KALANI spoke with Denise. KALANI told Denise patient will need a wheelchair provided and to please use [facility]. Denise made note of this in request. KALANI said earliest patient would be ready is 2p. Trip number is [id number]. Ashlyn ROBERTS
--- NOTE | 2022-11-12 09:40 | CASEMGMT ---
KALANI received a call from Susie at [facility]. They received the trip request from [facility]. Susie confirmed they can transport patient and they will be here at 2p. Susie asked that patient be at the main entrance at 2p. KALANI also verified that [facility] will bring a wheelchair. KALANI will notify physician and RN. Plan: d/c back to [place] under intermediate level of care. [facility] will transport patient which was arranged through [facility]. Ashlyn ROBERTS
[2022-11-12] MEDS: Furosemide 40 MG Tablet PO (09:48)
--- NOTE | 2022-11-12 10:09 | CASEMGMT ---
Addendum entered by Ashlyn Parkinson 11/12/22 10:57: SW notified RN and she will obtain a COVID test. Ashlyn ROBERTS Original Note: KALANI notified physician, patient, real estate legal secretary, Alec, and Emmanuelle from [facility] about the discharge and lease picker time. KALANI will notify RN. Plan: d/c back to [place] under intermediate level of care. Ashlyn ROBERTS
--- NOTE | 2022-11-12 10:58 | PCM.TXEXTCAR ---
Diet Diet Order/Speech Therapy: 11/01/22 17:57 Diet: Consistent Carb - Calorie Controlled Food consistency:: Regular Liquid Consistency:: Regular/Thin Dietary Modifications:: Cardiac / Heart Healthy Sodium Restricted Is pt able to select menu?: Yes How many daily calories?: 1999 calorie Routine Orders/Code Status Routine Lab Work: - (fingerstick blood sugars ACQHS with Humalog SQ per scale:200-250: 5 u, 251-300: 8u, 301-350: 12u, 351-400: 15u) Code Status: DNRCC-A (with intubation) Wound(s) left foot: Wound Type: Neuropathic/Diabetic Foot Ulcer right foot: Wound Type: Neuropathic/Diabetic Foot Ulcer right 2nd toe: Wound Type: Neuropathic/Diabetic Foot Ulcer Dressing Change: betadine with dry dressing left 2nd toe: Wound Type: Neuropathic/Diabetic Foot Ulcer Dressing Change: betadine with dry dressing Rt mid back: Wound Type: Puncture Therapies Weight Bearing: Weight bearing as tolerated (contact guard) Problem/Diagnosis (1) ZOFIA (acute kidney injury): Status: Acute Code(s): N17.9 - Acute kidney failure, unspecified Plan 1. Acute exacerbation of systolic CHF-patient is currently on room air at this time, patient's diuretics are being held due to increased creatinine and BUN, patient's creatinine has been stable over the past several days. Cardiology is participating in his care. 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-continue anticoagulation with warfarin, INR was 3.1 today #6 coronary artery disease-stable at this time #7 peripheral vascular disease-patient was unable to undergo his angiogram yesterday due to elevated INR, it will not be performed until next week sometime #8 osteomyelitis of the right toe-patient will undergo a right second digit amputation and left second digit partial amputation due to deformity-podiatry is participating in his care, this will happen after the patient undergoes an angiogram next week #9 acute kidney injury-possibly due to ATN, vancomycin was discontinued-I talked with ID today, patient is being followed by nephrology. Total clinical time spent by myself addressing the patient's medical issues, reviewing of his data, and collaborating with patient's care team: 35-minutes Allergies/Procedures Done in Hospital Allergies No Known Allergies Allergy (Verified 10/19/22 13:51) Procedures: 2-D Echocardiogram Type of Care/Length of Stay Estimated LOS: More Than 30 Days Type of Care Needed: Intermediate Rehab Potential: Fair Prognosis: Fair Additional Orders/Day of Discharge H&P will serve as current which was dated: 10/29/22 Day of Discharge: 11/12/22 Dietary and Speech Recommendations Dietitian Recommendations/Changes: Will continue 2000 calorie/consistent carbohydrate; cardiac/sodium-restricted with fluid restriction as per physician. Will continue Renny BID to support wound healing. Discharge Plan Admission Admit Date/Time: 10/29/22 16:04 Primary Reason for Your Visit: heart failure Attending Provider: Greg Cotter Primary Care Provider: Saurabh Hernandez [employer] Providers: Jose Cruz Johnson ; John Johansen ; Ann Marie Cox ; Kendrick May ; Karan Sotelo ; Daryl Johnson ; Kartik Avila Instructions Additional Instructions / Restrictions: Doxycycline and Augmentin for eight more days Discharge Orders/Prescriptions Prescriptions: New doxycycline hyclate 100 mg capsule 100 mg PO BID Qty: 20 0RF ferrous sulfate [FeroSul] 325 mg (65 mg iron) Tablet 325 mg PO DAILYCM Qty: 0 0RF insulin glargine-yfgn 100 unit/mL (3 mL) Insulin Pen 15 unit subcut DAILY Qty: 0 0RF acetaminophen 325 mg Tablet 650 mg PO Q6H PRN PRN (Reason: Pain 1-10 Or Fever >100.7) Qty: 0 0RF metoprolol succinate 100 mg Tablet Extended Release 24 Hr 100 mg PO DAILY Qty: 0 0RF furosemide 40 mg Tablet 40 mg PO DAILY Qty: 0 0RF Continued lisinopril 5 mg tablet 5 mg PO DAILY atorvastatin 40 mg Tablet 40 mg PO QHS warfarin [Jantoven] 6 mg tablet 4 mg PO DAILY Rx Instructions: Hold if INR more than 3.5 amoxicillin-pot clavulanate 875-125 mg tablet 1 tab PO BID Qty: 20 0RF ipratropium-albuterol 0.5 mg-3 mg(2.5 mg base)/3 mL Solution For Nebulization 3 ml INHALATION Q4H PRN (Reason: SOB) ferrous sulfate 325 mg (65 mg iron) tablet 325 mg PO DAILY Discontinued metformin 500 mg tablet 500 mg PO BIDCM metoprolol succinate 25 mg tablet extended release 24 hr 75 mg PO DAILY Tradjenta 5 mg tablet 5 mg PO DAILY gabapentin 100 mg capsule 200 mg PO BID Label Comments: TAKE 2 CAPSULES BY MOUTH EVERY 12 HOURS doxepin 50 mg capsule 50 mg PO QHS ascorbic acid (vitamin C) 500 mg capsule 500 mg PO BID potassium chloride 20 mEq Tablet,Er Particles/Crystals 20 meq PO DAILY insulin aspart U-100 [Novolog FlexPen U-100 Insulin] 100 unit/mL (3 mL) insulin pen 10 unit SUBCUT BIDCM Qty: 3 0RF Rx Instructions: Hold if glucose less than 130 mg/dl insulin glargine [Lantus Solostar U-100 Insulin] 100 unit/mL (3 mL) insulin pen 25 unit SUBCUT DAILY Qty: 3 0RF Rx Instructions: Hold if glucose less than 130 mg/dl furosemide 20 mg tablet 40 mg PO DAILY cholecalciferol (vitamin D3) [Vitamin D3] 50 mcg (2,000 unit) Capsule 50 mcg PO DAILY Referrals / Follow Up: Kendrick May MD [Med Staff - Active Staff] - See Referral Note (call for appointment) Jose Cruz Johnson DPM [Med Staff - Active Staff] - See Referral Note (call for appointment-needs seen next week) Saurabh Hernandez Chi, MD [Primary Care Provider] - Disposition Disposition (needs filled in before D/C Order can be placed): Nursing Home Facility
--- NOTE | 2022-11-12 11:51 | PCM.DC.SUM ---
Providers Date of Admission: 10/29/22 Date of Discharge: 11/12/22 Primary Care Physician: Dr. 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 Routine Comment: Reason for Consult:: Foot wound 10/30/22 09:02 Consult: Podiatry Routine Consulting Provider: Jose Cruz Johnson Reason for Consult: Wounds on R second toe open, L middle toe, cx 4/10 MRSA + kocuria kristinae EMERGENT Consult: No Notified: Yes Date Notified: 10/30/22 Time Notified: 09:15 Method of Notification: Text 10/31/22 17:13 Consult: Infectious Disease Routine Consulting Provider: John Johansen Reason for Consult: concern for osteo from DM foot wound EMERGENT Consult: No Notified: Yes Date Notified: 11/01/22 Time Notified: 06:00 Method of Notification: Answering Service 11/01/22 15:59 Consult: Vascular Surgery Routine Consulting Provider: Kendrick May Reason for Consult: toe ulcer with PAD EMERGENT Consult: No Notified: Yes Date Notified: 11/01/22 Time Notified: 15:59 Method of Notification: Text 11/02/22 16:11 Consult: Cardiology Routine Consulting Provider: Karan Sotelo Reason for Consult: PERIOPERATIVE EVALAUATION FOR TOE amputation EMERGENT Consult: No Notified: Yes Date Notified: 11/02/22 Time Notified: 16:11 Method of Notification: Text 11/08/22 08:18 Consult: Nephrology Routine Consulting Provider: Daryl Johnson Reason for Consult: ZOFIA from diuretics, multiple cardiac ds EMERGENT Consult: No Notified: Yes Date Notified: 11/08/22 Time Notified: 08:19 Method of Notification: Text Reason For Visit: Atherosclerosis of [place] arteries of other extrem Diagnosis Discharge Diagnosis (1) ZOFIA (acute kidney injury): Status: Acute Code(s): N17.9 - Acute kidney failure, unspecified Plan 1. Acute exacerbation of systolic CHF-patient is currently on room air at this time, patient's diuretics are being held due to increased creatinine and BUN, patient's creatinine has been stable over the past several days. Cardiology is participating in his care. 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-continue anticoagulation with warfarin, INR was 3.1 today #6 coronary artery disease-stable at this time #7 peripheral vascular disease-patient was unable to undergo his angiogram yesterday due to elevated INR, it will not be performed until next week sometime #8 osteomyelitis of the right toe-patient will undergo a right second digit amputation and left second digit partial amputation due to deformity-podiatry is participating in his care, this will happen after the patient undergoes an angiogram next week #9 acute kidney injury-possibly due to ATN, vancomycin was discontinued-I talked with ID today, patient is being followed by nephrology. Total clinical time spent by myself addressing the patient's medical issues, reviewing of his data, and collaborating with patient's care team: 35-minutes Medications at Discharge Home Medications atorvastatin 40 mg tablet 40 mg PO QHS cholesterol 11/12/20 lisinopril 5 mg tablet 5 mg PO DAILY HTN 10/08/21 warfarin 6 mg tablet (Jantoven) 4 mg PO DAILY Check with primary doctor 10/14/22 amoxicillin 875 mg-potassium clavulanate 125 mg tablet 1 tab PO BID #20 tabs 10/19/22 ferrous sulfate 325 mg (65 mg iron) tablet 325 mg PO DAILY 10/29/22 ipratropium 0.5 mg-albuterol 3 mg (2.5 mg base)/3 mL nebulization soln 3 ml inhalation Q4H PRN SOB 10/29/22 doxycycline hyclate 100 mg capsule 100 mg PO BID #20 caps 11/10/22 acetaminophen 325 mg tablet 650 mg PO Q6H PRN PRN Pain 1-10 Or Fever >100.7 #0 tabs 11/12/22 ferrous sulfate 325 mg (65 mg iron) tablet (FeroSul) 325 mg PO DAILYCM #0 tabs 11/12/22 furosemide 40 mg tablet 40 mg PO DAILY #0 tabs 11/12/22 insulin glargine-yfgn 100 unit/mL (3 mL) subcutaneous pen 15 unit (0.15 mL) subcut DAILY #0 mL 11/12/22 metoprolol succinate 100 mg tablet,extended release 24 hr 100 mg PO DAILY #0 tabs 11/12/22 Hospital Course Operations None Procedures Transthoracic echo Summary of Care Provided Minutes Spent on Discharge: 33 Hospital Course: This 71-year-old white male was seen in the emergency room at [facility] after being transported from a local extended care facility at which she is a resident due to shortness of breath. Patient was on chronic oxygen at the [facility] at 2 L/min, patient's labs included a CBC which was abnormal for hemoglobin of 11.2, BMP showed an elevated potassium of 5.6, glucose was 189, sodium was 132, and patient's beta natruretic peptide was elevated at 512. An ABG was performed on 4 L nasal cannula, it showed a pH of 7.34, PCO2 of 58, and PO2 of 95. Chest x-ray showed a right pleural effusion. Patient was felt to be in acute congestive heart failure, he was admitted to PCU, echocardiogram was performed which showed a normal ejection fraction, patient's pulse ox was monitored. Patient was seen in consultation by nephrology, podiatry, infectious diseases, cardiology, and vascular surgery. Patient had osteomyelitis of the second toe of the right foot, he was treated with antibiotics, he was to undergo an angiogram of the lower extremities but due to the fact the patient had elevated INR, this had to be canceled and could not be rescheduled while the patient was in the hospital. Patient was able to be weaned off his oxygen, diuretics were held for a period of time due to increased BUN and creatinine, prior to discharge the patient's oral diuretics were resumed. I request was forwarded by the [facility] to skilled the patient for skilled care, unfortunately the patient's insurance did not approve the patient to be skilled. On 11/12/2022, patient was seen and examined:alert and no apparent distress General Appearance: cooperative and well developed Orientation / Consciousness: awake, oriented to person and oriented to place HEENT normocephalic, head/scalp atraumatic and moist oral mucous membranes Eyes PERRL, EOMs intact bilaterally and conjunctivae normal Neck supple, no JVD, thyroid normal and no carotid bruits General: trachea midline Resp normal respiratory effort, no retractions, no use of accessory muscles and clear to auscultation bilaterally Auscultation: Negative for rales, rhonchi or wheezes Cardio regular rate, regular rhythm, S1 normal heart sound, S2 normal heart sound, no murmurs, no rub and no gallops Cardio Narrative: Mechanical heart sound is noted over the precordium GI normal to inspection, nondistended, normoactive bowel sounds, soft to palpation and non-tender GI Narrative: Patient has a large right upper quadrant ventral hernia extending into the lower chest area on the right Extremity no clubbing, cyanosis or edema Extremity Narrative: Right foot is wrapped with surgical dressing, this was not removed for inspection of the area. Skin no rashes or lesions noted General Skin Exam: Patient's right foot is wrapped with surgical dressing, the patient's left foot was not examined Neuro oriented x3, CN's II-XII intact bilaterally, no focal motor deficits and no sensory deficits noted Sensorium / Orientation: awake and alert Speech: speech normal Psych affect normal Patient appears stable for [facility]. He was to follow-up with podiatry regarding surgery on the patient's right second toe and left foot as an outpatient, he is also to follow-up with vascular surgery regarding obtaining an angiogram as an outpatient. Prior to discharge, I notified podiatry and vascular surgery of the patient's discharge back to [facility]. Weight / BMI Weight Weight: 108.8 kg Body Mass Index (BMI) 33.4 ABG / Lab / Microbiology Data Result Diagrams: 11/10/22 04:42 11/12/22 05:10 Laboratory: Laboratory Results - last 24 hr 11/11/22 11:33: POC Glucose 200 H 11/11/22 16:32: POC Glucose 245 H 11/11/22 21:33: POC Glucose 160 H 11/12/22 05:10: Sodium 137, Potassium 3.7, Chloride 107, Carbon Dioxide 26.0, Anion Gap 4 L, BUN 58 H, Creatinine 1.46 H, Estim Creat Clear Calc 50.86, Est GFR (MDRD) Af Amer 61, Est GFR (MDRD) Non-Af 51 L, BUN/Creatinine Ratio 39.7 H, Glucose 148 H, Calcium 8.2 L 11/12/22 06:35: POC Glucose 141 H Microbiology: Microbiology 11/12/22 10:48 Nasal Secretion SARS-CoV-2 Antigen (Rapid) - Final 11/05/22 09:00 Fluid - Thoracentesis Fluid Gram Stain - Final 11/05/22 09:00 Fluid - Thoracentesis Fluid Body Fluid Culture - Final Culture exhibits no growth. 11/05/22 09:00 Fluid - Thoracentesis Fluid Anaerobic Culture - Final No growth in 5 days. 11/02/22 23:30 Sputum, Expectorated/Coughed Gram Stain - Final 11/02/22 23:30 Sputum, Expectorated/Coughed Respiratory Culture - Final Proteus mirabilis 10/29/22 19:29 Blood Culture (Wb) - Right Hand Blood Culture - Final No growth in 5 days. 10/29/22 19:20 Blood Culture (Wb) - Anticubital Right Blood Culture - Final No growth in 5 days. 10/30/22 17:38 Urine, Random Urine Culture - Final Pseudomonas aeruginosa 10/30/22 17:38 Urine, Clean Catch Legionella Antigen - Final 10/30/22 17:38 Urine, Clean Catch Streptococcus pneumoniae Antigen (M - Final 10/29/22 17:30 Mucosa - Nose Respiratory Panel (PCR) - Final 10/29/22 17:30 Nasal Secretion SARS-CoV-2 & FLU Antigen (Rapid) - Final Meaningful Use Info Meaningful Use Diagnoses (Choose all that apply): None applicable Discharge Plan Admission Admit Date/Time: 10/29/22 16:04 Primary Reason for Your Visit: heart failure Attending Provider: Greg Cotter Primary Care Provider: Saurabh Hernandez Chi Consulting Providers: Jose Cruz Johnson ; John Johansen ; Ann Marie Cox ; Kendrick May ; Karan Sotelo ; Daryl Johnson ; Kartik Avila Instructions Additional Instructions / Restrictions: Doxycycline and Augmentin for eight more days Discharge Orders/Prescriptions Prescriptions: New doxycycline hyclate 100 mg capsule 100 mg PO BID Qty: 20 0RF ferrous sulfate [FeroSul] 325 mg (65 mg iron) Tablet 325 mg PO DAILYCM Qty: 0 0RF insulin glargine-yfgn 100 unit/mL (3 mL) Insulin Pen 15 unit subcut DAILY Qty: 0 0RF acetaminophen 325 mg Tablet 650 mg PO Q6H PRN PRN (Reason: Pain 1-10 Or Fever >100.7) Qty: 0 0RF metoprolol succinate 100 mg Tablet Extended Release 24 Hr 100 mg PO DAILY Qty: 0 0RF furosemide 40 mg Tablet 40 mg PO DAILY Qty: 0 0RF Continued lisinopril 5 mg tablet 5 mg PO DAILY atorvastatin 40 mg Tablet 40 mg PO QHS warfarin [Jantoven] 6 mg tablet 4 mg PO DAILY Rx Instructions: Hold if INR more than 3.5 amoxicillin-pot clavulanate 875-125 mg tablet 1 tab PO BID Qty: 20 0RF ipratropium-albuterol 0.5 mg-3 mg(2.5 mg base)/3 mL Solution For Nebulization 3 ml INHALATION Q4H PRN (Reason: SOB) ferrous sulfate 325 mg (65 mg iron) tablet 325 mg PO DAILY Discontinued metformin 500 mg tablet 500 mg PO BIDCM metoprolol succinate 25 mg tablet extended release 24 hr 75 mg PO DAILY Tradjenta 5 mg tablet 5 mg PO DAILY gabapentin 100 mg capsule 200 mg PO BID Label Comments: TAKE 2 CAPSULES BY MOUTH EVERY 12 HOURS doxepin 50 mg capsule 50 mg PO QHS ascorbic acid (vitamin C) 500 mg capsule 500 mg PO BID potassium chloride 20 mEq Tablet,Er Particles/Crystals 20 meq PO DAILY insulin aspart U-100 [Novolog FlexPen U-100 Insulin] 100 unit/mL (3 mL) insulin pen 10 unit SUBCUT BIDCM Qty: 3 0RF Rx Instructions: Hold if glucose less than 130 mg/dl insulin glargine [Lantus Solostar U-100 Insulin] 100 unit/mL (3 mL) insulin pen 25 unit SUBCUT DAILY Qty: 3 0RF Rx Instructions: Hold if glucose less than 130 mg/dl furosemide 20 mg tablet 40 mg PO DAILY cholecalciferol (vitamin D3) [Vitamin D3] 50 mcg (2,000 unit) Capsule 50 mcg PO DAILY Referrals / Follow Up: Kendrick May MD [Med Staff - Active Staff] - See Referral Note (call for appointment) Jose Cruz Johnson DPM [Med Staff - Active Staff] - See Referral Note (call for appointment-needs seen next week) Saurabh Hernandez Chi, MD [Primary Care Provider] - Disposition Disposition (needs filled in before D/C Order can be placed): [facility] Facility Charges/Coding Visit Charges Inpatient E&M: 59697 Disch Hosp >30min
--- NOTE | 2022-11-12 11:56 | PHA.DC.MR ---
Pharmacy Service has performed discharge medication reconciliation for this patient. The patient's discharge medication list was reviewed for discrepancies and discrepancies were resolved. Home Medications atorvastatin 40 mg tablet 40 mg PO QHS cholesterol 11/12/20 lisinopril 5 mg tablet 5 mg PO DAILY HTN 10/08/21 warfarin 6 mg tablet (Jantoven) 4 mg PO DAILY Check with primary doctor 10/14/22 amoxicillin 875 mg-potassium clavulanate 125 mg tablet 1 tab PO BID #20 tabs 10/19/22 ferrous sulfate 325 mg (65 mg iron) tablet 325 mg PO DAILY 10/29/22 ipratropium 0.5 mg-albuterol 3 mg (2.5 mg base)/3 mL nebulization soln 3 ml inhalation Q4H PRN SOB 10/29/22 doxycycline hyclate 100 mg capsule 100 mg PO BID #20 caps 11/10/22 acetaminophen 325 mg tablet 650 mg PO Q6H PRN PRN Pain 1-10 Or Fever >100.7 #0 tabs 11/12/22 ferrous sulfate 325 mg (65 mg iron) tablet (FeroSul) 325 mg PO DAILYCM #0 tabs 11/12/22 furosemide 40 mg tablet 40 mg PO DAILY #0 tabs 11/12/22 insulin glargine-yfgn 100 unit/mL (3 mL) subcutaneous pen 15 unit (0.15 mL) subcut DAILY #0 mL 11/12/22 metoprolol succinate 100 mg tablet,extended release 24 hr 100 mg PO DAILY #0 tabs 11/12/22
--- NOTE | 2022-11-12 12:18 | CASEMGMT ---
KALANI sent orders, transport time, and COVID test to [facility]. KALANI called Emmanuelle with [facility] and let her know about d/c and pickle solution maker time. All in agreement with d/c plan. Plan: d/c back to [facility] under intermediate level of care. [facility] transported patient via wheelchair van which was arranged through [facility]. Ashlyn Parkinson BUDGET DIRECTOR ARMANDO
[2022-11-12 13:00] LABS: Bedside Glucose 208 mg/dL (74-106)
== END 2022-11-12 14:02 | disposition skilled nursing facility (03) | DRG 264 ==
LOC: ED 15:36 → PCU 16:56
PROVIDERS: Anesthesiology; Family Medicine; Internal Medicine; Internal Medicine Infectious Disease; Nurse Practitioner Adult Health; Physician Assistant; Admitting Provider Internal Medicine; Emergency Provider Emergency Medicine; PCP Family Medicine Geriatric Medicine; Visit Provider Internal Medicine
DX: I11.0 Hypertensive heart disease with heart failure (principal); N17.0 Acute kidney failure with tubular necrosis; J96.02 Acute respiratory failure with hypercapnia; G93.41 Metabolic encephalopathy; J15.6 Pneumonia due to other Gram-negative bacteria; J96.21 Acute and chronic respiratory failure with hypoxia; I50.23 Acute on chronic systolic (congestive) heart failure; J90 Pleural effusion, not elsewhere classified; J44.0 Chronic obstructive pulmonary disease with (acute) lower respiratory infection; M86.9 Osteomyelitis, unspecified; I27.21 Secondary pulmonary arterial hypertension; L97.514 Non-pressure chronic ulcer of other part of right foot with necrosis of bone; E11.42 Type 2 diabetes mellitus with diabetic polyneuropathy; E11.621 Type 2 diabetes mellitus with foot ulcer; L97.522 Non-pressure chronic ulcer of other part of left foot with fat layer exposed; E11.51 Type 2 diabetes mellitus with diabetic peripheral angiopathy without gangrene; E11.69 Type 2 diabetes mellitus with other specified complication; I25.10 Atherosclerotic heart disease of native coronary artery without angina pectoris; E78.5 Hyperlipidemia, unspecified; M15.4 Erosive (osteo)arthritis; R26.2 Difficulty in walking, not elsewhere classified; E87.5 Hyperkalemia; F17.210 Nicotine dependence, cigarettes, uncomplicated; I25.2 Old myocardial infarction; M20.5X2 Other deformities of toe(s) (acquired), left foot; R62.7 Adult failure to thrive; B95.62 Methicillin resistant Staphylococcus aureus infection as the cause of diseases classified elsewhere; B96.5 Pseudomonas (aeruginosa) (mallei) (pseudomallei) as the cause of diseases classified elsewhere; L03.031 Cellulitis of right toe; R79.1 Abnormal coagulation profile; Z68.33 Body mass index [BMI] 33.0-33.9, adult; Z53.8 Procedure and treatment not carried out for other reasons; Z95.1 Presence of aortocoronary bypass graft; Z95.2 Presence of prosthetic heart valve; Z99.81 Dependence on supplemental oxygen; Z79.01 Long term (current) use of 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s; Z79.84 Long term (current) use of oral hypoglycemic drugs; Z79.899 Other long term (current) drug therapy; Z86.718 Personal history of other venous thrombosis and embolism
CPT/HCPCS: 32555; 36415; 36600; 71045; 71046; 75635; 80048; 80053; 80202; 81001; 82150; 82803; 82945; 82962; 83605; 83615; 83735; 83880; 83986; 84145; 84156; 84157; 84484; 85025; 85027; 85610; 85652; 85730; 86140; 87040; 87070; 87075; 87077; 87086; 87088; 87186; 87205; 87426; 87428; 87449; 87633; 88108; 88305; 88313; 89050; 92523; 93005; 93306; 94002; 94003; 94060; 94640; 94668; 94726; 94729; 94762; 97110; 97112; 97162; 97166; 97530; 97535; 99252; 99285; J7030; J7040; Q9957; Q9967; A4216; C8929; G0463; J0295; J1940; J3490

== ENCOUNTER → 2022-12-02 | Day surgery (SDC) | payer MEDICARE, MEDICAID, SELFPAY ==
[2022-12-01 07:14] VITALS: BMI 31.1
[2022-12-02 06:42] LABS: Hematocrit 29.5 % (40-54); Hemoglobin 8.9 g/dL (13.0-16.5); Mean Corp Hgb Conc 30.2 g/dL (32-36); Mean Corpuscular Hgb 27.4 pg (27.0-32.0); Mean Corpuscular Volume 90.8 fL (80-94); Mean Platelet Vol. 10.2 fl (6.2-12.0); POSITIVE MORPHOLOGY YES; Platelet Count 220 K/mm3 (150-450); RBC Distribution Width CV 22.3 % (11.6-14.6); RBC Distribution Width SD 73.6 fl (35.1-43.9); Red Blood Count 3.25 M/mm3 (4.6-6.2); White Blood Count 5.5 K/mm3 (4.4-11.0)
[2022-12-02 06:46] LABS: Scan Indicated on CBC? Y/N YES- FLAGS NOTED
[2022-12-02 06:52] LABS: International Normalized Ratio 1.5; Prothrombin Time (Protime)PT. 18.6 SECONDS (11.7-14.9)
[2022-12-02 06:56] LABS: Anion Gap 7 (5-15); BUN 20 mg/dL (7-18); BUN/Creat Ratio 21.5 RATIO (10-20); Calcium,Total 8.7 mg/dL (8.5-10.1); Chloride 109 mmol/L (98-107); Creatinine, Serum 0.93 mg/dL (0.70-1.30); EST Glomerular Filtration Rate 85 mL/min (>60); Est Glom Filt Rate - Afr Amer 103 mL/min (>60); Estimated Creatinine Clearance 79.84 ml/min; Glucose 93 mg/dL (74-106); Potassium 3.6 mmol/L (3.5-5.1); Sodium Level 141 mmol/L (136-145)
== END | disposition home or self-care (01) ==
PROVIDERS: PCP Family Medicine Geriatric Medicine; Referring Provider Surgery Trauma Surgery; Visit Provider Surgery Trauma Surgery
DX: Z95.2 Presence of prosthetic heart valve (principal); I70.25 Atherosclerosis of native arteries of other extremities with ulceration
CPT/HCPCS: 36415; 80048; 85027; 85610

== ENCOUNTER 2022-12-11 16:19 | Inpatient (IN) | payer MEDICARE, MEDICAID, SELFPAY ==
[2022-12-11 16:23] VITALS: BP 137/73; PULSE 80; RESP 16; TEMP 36.2; O2SAT 100; BMI 31.3
--- NOTE | 2022-12-11 16:35 | EX.ED.DYSGE1 ---
HPI History of Present Illness Chief Complaint: Confusion Narrative Narrative: Patient presents with painless jaundice and anemia. He is arriving from an ECF, he had blood work yesterday which showed hyperbilirubinemia and a hemoglobin of 6. Patient tells me he feels the same however he is bedbound and does not ambulate or exert himself. No history of fevers or chills. [facility] Medical History Acute and chronic respiratory failure with hypercapnia Acute exacerbation of CHF (congestive heart failure) Acute hypercapnic respiratory failure Adult failure to thrive ZOFIA (acute kidney injury) Anticoagulant long-term use Atherosclerosis of coronary artery without angina pectoris Atherosclerosis of lower extremity with ulceration Bleeding disorder CHF (congestive heart failure) Chronic combined systolic and diastolic CHF (congestive heart failure) Congestive heart failure COPD (chronic obstructive pulmonary disease) COPD (chronic obstructive pulmonary disease) Diabetic foot infection DVT (deep venous thrombosis) Elevated troponin Encephalopathy acute Essential (primary) hypertension Gangrene of toe GERD (gastroesophageal reflux disease) History of non-ST elevation myocardial infarction (NSTEMI) (04/23/20) Hyperlipidemia Inability to walk Ischemic cardiomyopathy Kidney stones 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 Lumbar spinal stenosis MSSA (methicillin susceptible Staphylococcus aureus) infection Nicotine dependence Non-healing surgical wound (05/01/20) Non-pressure chronic ulcer of other part of left foot with fat layer exposed Non-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 Nonrheumatic aortic (valve) stenosis 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 Obstructive sleep apnea Osteomyelitis Osteomyelitis of toe of right foot Peripheral vascular occlusive disease Pleural effusion, right Recurrent right pleural effusion Scabies infestation Secondary pulmonary arterial hypertension Smoker Sternal wound infection Type 2 diabetes mellitus 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 foot with fat layer exposed Ulcer of right foot with necrosis of bone Home Medications atorvastatin 40 mg tablet 40 mg PO QHS cholesterol 11/12/20 [History Last Taken 09/20/21] lisinopril 5 mg tablet 5 mg PO DAILY HTN 10/08/21 [History Last Taken Unknown] ferrous sulfate 325 mg (65 mg iron) tablet 325 mg PO DAILY 10/29/22 [History Last Taken Unknown] ipratropium 0.5 mg-albuterol 3 mg (2.5 mg base)/3 mL nebulization soln 3 ml inhalation Q4H PRN SOB 10/29/22 [History Last Taken Unknown] doxycycline hyclate 100 mg capsule 100 mg PO BID #20 caps 11/10/22 [Rx Last Taken Unknown] acetaminophen 325 mg tablet 650 mg PO Q6H PRN PRN Pain 1-10 Or Fever >100.7 #0 tabs 11/12/22 [Rx Last Taken Unknown] ferrous sulfate 325 mg (65 mg iron) tablet (FeroSul) 325 mg PO DAILYCM #0 tabs 11/12/22 [Rx Last Taken Unknown] furosemide 40 mg tablet 40 mg PO DAILY #0 tabs 11/12/22 [Rx Last Taken Unknown] insulin glargine-yfgn 100 unit/mL (3 mL) subcutaneous pen 15 unit (0.15 mL) subcut DAILY #0 mL 11/12/22 [Rx Last Taken Unknown] metoprolol succinate 100 mg tablet,extended release 24 hr 100 mg PO DAILY #0 tabs 11/12/22 [Rx Last Taken Unknown] enoxaparin 100 mg/mL subcutaneous syringe (Lovenox) 100 mg subcut Q12H 30 days #60 mL 12/02/22 [Rx Last Taken Unknown] cyclobenzaprine 10 mg tablet 10 mg PO TID PRN Muscle Pain 12/11/22 [History Last Taken Unknown] insulin lispro 100 unit/mL subcutaneous pen (Humalog KwikPen (U-100) Insulin) unit subcut ACHS 12/11/22 [History Last Taken Unknown] oxycodone 5 mg capsule 5 mg PO BID PRN Pain 12/11/22 [History Last Taken Unknown] Allergy/AdvReac Type Severity Reaction Status Date / Time No Known Allergies Allergy Verified 11/16/22 14:11 Family History Mother Diabetes Heart disease Father Diabetes Surgical History H/O coronary artery bypass surgery (05/01/20) History of angioplasty of peripheral vessel (01/02/10) History of femoropopliteal bypass (2008) History of incision and drainage (09/22/20) History of left heart catheterization (04/23/20) History of lumbar laminectomy History of mechanical aortic valve replacement Social History household members: significant other Smoking Status: Current every day smoker tobacco type: cigarettes alcohol intake: never substance use type: does not use caffeine: No ROS ROS ED ROS Narrative Past medical history: Reviewed in the [facility] paperwork and in [facility] Medications: Reviewed Social history: Noncontributory Review of systems: All systems negative except as indicated General: No fever. There is weakness however he is chronically weak he does not think this changed. Eyes: No visual changes ENT: No upper airway congestion, normal voice Cardiovascular: No chest pain Respiratory: No shortness of breath or cough Gastrointestinal: No abdominal pain, nausea vomiting or diarrhea Musculoskeletal: Denies any myalgias. Chronic lower extremity edema Skin: Jaundice but he has not noticed significant Neurological: No memory loss, confusion or any focal weakness EXAM Physical Exam Narrative Exam Narrative: Physical exam General: Patient appears chronically ill, he does not appear in acute distress Head: Normocephalic, Atraumatic Eyes: Conjunctiva slightly pale, there is scleral icterus present ENT: Slightly dry mucous membranes Neck: Supple, Nontender, No lymphadenopathy Cardiovascular: Regular rate, Regular rhythm Respiratory: No distress, CTA bilaterally Abdomen: Soft, it is distended he has a large umbilical hernia right upper quadrant. No significant pain when I palpate. Back: Nontender, Normal Inspection. Negative for: CVA tenderness Extremities: Nontender, chronic bilateral lower extremity edema Skin: Patient has some pallor and jaundice Neurological: Alert, Normal Strength, Normal Sensation. No asterixis Const Vital Signs: 12/11/22 16:23 12/11/22 16:50 Temperature 97.2 F L Temperature Source Temporal Pulse Rate 80 Respiratory Rate 16 Respiratory Effort Normal Non-Labored Blood Pressure 137/73 H Blood Pressure Mean 94 Pulse Ox 100 Oxygen Delivery Method Nasal Cannula Oxygen Flow Rate (L/min) 3 MDM MDM MDM Narrative Medical decision making narrative: Patient is found to have hyperbilirubinemia, as well as anemia. I will transfuse in the ED. I discussed the patient with his PCP as well as the hospitalist for admission. He will need a CT, he is also found to have a significant pleural effusion on the right which is likely a product of his liver insufficiency. Regardless he is going to need admission, possible thoracentesis. He will need an evaluation for his liver, I did talk to GI physician retail assistant about the patient also. Patient is also anemic and I will transfuse. Lab Data Labs: Laboratory Results - last 24 hr 12/11/22 12/11/22 12/11/22 16:45 16:45 16:45 WBC 4.2 L RBC 2.31 L Hgb 7.0 L Hct 22.6 L MCV 97.8 H MCH 30.3 MCHC 31.0 L RDW Std Deviation 95.2 H RDW Coeff of Estrada 27.6 H Plt Count 206 MPV 10.3 Immature Gran % (Auto) 0.200 Neut % (Auto) 61.5 Lymph % (Auto) 19.6 [place] % (Auto) 16.3 H Eos % (Auto) 1.9 Baso % (Auto) 0.5 Absolute Neuts (auto) 2.6 Absolute Lymphs (auto) 0.82 L Nucleated RBC % 0.5 Differential Comment SCANNED Hypochromasia 2+ Anisocytosis 2+ Target Cells 1+ Crenated Cell 1+ Schistocytes RARE PT 17.7 H INR 1.4 Sodium 142 Potassium 3.2 L Chloride 104 Carbon Dioxide 32.0 Anion Gap 6 BUN 39 H Creatinine 1.03 Estim Creat Clear Calc 71.08 Est GFR (MDRD) Af Amer 92 Est GFR (MDRD) Non-Af 76 BUN/Creatinine Ratio 37.9 H Glucose 180 H Calcium 8.6 Total Bilirubin 2.70 H Direct Bilirubin 1.50 H AST 21 ALT 13 L Alkaline Phosphatase 196 H Total Protein 6.7 Albumin 2.6 L Globulin 4.1 Lipase < 10 L Blood Type Antibody Screen 12/11/22 16:45 WBC RBC Hgb Hct MCV MCH MCHC RDW Std Deviation RDW Coeff of Estrada Plt Count MPV Immature Gran % (Auto) Neut % (Auto) Lymph % (Auto) [place] % (Auto) Eos % (Auto) Baso % (Auto) Absolute Neuts (auto) Absolute Lymphs (auto) Nucleated RBC % Differential Comment Hypochromasia Anisocytosis Target Cells Crenated Cell Schistocytes PT INR Sodium Potassium Chloride Carbon Dioxide Anion Gap BUN Creatinine Estim Creat Clear Calc Est GFR (MDRD) Af Amer Est GFR (MDRD) Non-Af BUN/Creatinine Ratio Glucose Calcium Total Bilirubin Direct Bilirubin AST ALT Alkaline Phosphatase Total Protein Albumin Globulin Lipase Blood Type B POSITIVE Antibody Screen NEGATIVE Discharge Plan Triage Chief Complaint: Confusion ED Provider: Feliciano Pinto Dx/Rx/DC Orders Clinical Impression: Generalized weakness, Hyperbilirubinemia, Anemia, Pleural effusion Prescriptions: No Action lisinopril 5 mg tablet 5 mg PO DAILY atorvastatin 40 mg Tablet 40 mg PO QHS ipratropium-albuterol 0.5 mg-3 mg(2.5 mg base)/3 mL Solution For Nebulization 3 ml INHALATION Q4H PRN (Reason: SOB) ferrous sulfate 325 mg (65 mg iron) tablet 325 mg PO DAILY doxycycline hyclate 100 mg capsule 100 mg PO BID Qty: 20 0RF ferrous sulfate [FeroSul] 325 mg (65 mg iron) Tablet 325 mg PO DAILYCM Qty: 0 0RF insulin glargine-yfgn 100 unit/mL (3 mL) Insulin Pen 15 unit subcut DAILY Qty: 0 0RF acetaminophen 325 mg Tablet 650 mg PO Q6H PRN PRN (Reason: Pain 1-10 Or Fever >100.7) Qty: 0 0RF metoprolol succinate 100 mg Tablet Extended Release 24 Hr 100 mg PO DAILY Qty: 0 0RF furosemide 40 mg Tablet 40 mg PO DAILY Qty: 0 0RF cyclobenzaprine 10 mg Tablet 10 mg PO TID PRN (Reason: Muscle Pain) insulin lispro [Humalog KwikPen Insulin] 100 unit/mL Insulin Pen SUBCUT ACHS oxycodone 5 mg Capsule 5 mg PO BID PRN (Reason: Pain) enoxaparin [Lovenox] 100 mg/mL syringe 100 mg subcut Q12H 30 Days Qty: 60 1RF Rx Instructions: Administer 100mg (1mL) subcutaneously every 12 hours as directed. Primary Care Provider: Feliciano Pace Referrals: Saurabh Hernandez Chi, MD [Med Staff - Active Staff] - Disposition Disposition: Acute Care Hospital [facility]
[2022-12-11 17:04] LABS: Absolute Lymphocyte Count 0.82 X10^3/uL (0.83-4.51); Absolute Neutrophil Count 2.6 X10^3/uL (2.0-7.7); Basophil# 0.02 X10^3/uL; Basophil% 0.5 % (0-1); Eosinophil# 0.08 X10^3/uL; Eosinophils% 1.9 % (0-5); Hematocrit 22.6 % (40-54); Lymphocyte # 0.82 X10^3/ul (0.83-4.51); Lymphocyte % 19.6 % (19-41); Mean Corpuscular Hgb 30.3 pg (27.0-32.0); Mean Corpuscular Volume 97.8 fL (80-94); Mean Platelet Vol. 10.3 fl (6.2-12.0); Monocyte# 0.68 X10^3/uL; Monocyte% 16.3 % (0-10); NRBC Flagged by Analyzer 0.5 % (0-5); Neutrophil # 2.57 X10^3/uL (2.7-7.7); Neutrophil % 61.5 % (47-70); POSITIVE MORPHOLOGY YES; Platelet Count 206 K/mm3 (150-450); RBC Distribution Width CV 27.6 % (11.6-14.6); RBC Distribution Width SD 95.2 fl (35.1-43.9); Red Blood Count 2.31 M/mm3 (4.6-6.2); White Blood Count 4.2 K/mm3 (4.4-11.0)
[2022-12-11 17:17] LABS: International Normalized Ratio 1.4; Prothrombin Time (Protime)PT. 17.7 SECONDS (11.7-14.9)
[2022-12-11 17:26] LABS: Differential Indicated SCAN CRITERIA MET
[2022-12-11 17:27] LABS: AST(SGOT) 21 U/L (15-37); Alanine Aminotransfer ALT/SGPT 13 U/L (16-61); Albumin, Serum 2.6 g/dL (3.2-5.0); Alkaline Phosphatase 196 U/L (45-117); Anion Gap 6 (5-15); BUN 39 mg/dL (7-18); BUN/Creat Ratio 37.9 RATIO (10-20); Calcium,Total 8.6 mg/dL (8.5-10.1); Chloride 104 mmol/L (98-107); Creatinine, Serum 1.03 mg/dL (0.70-1.30); EST Glomerular Filtration Rate 76 mL/min (>60); Est Glom Filt Rate - Afr Amer 92 mL/min (>60); Estimated Creatinine Clearance 71.08 ml/min; Globulin 4.1 g/dL (2.2-4.2); Glucose 180 mg/dL (74-106); Lipase < 10 U/L (13-75); Potassium 3.2 mmol/L (3.5-5.1); Protein, Total 6.7 g/dL (6.4-8.2); Sodium Level 142 mmol/L (136-145)
--- NOTE | 2022-12-11 17:40 | CT_ITS ---
STUDY: CT ABDOMEN AND PELVIS WITH CONTRAST REASON FOR EXAM: Male, 72 years old. Abdominal pain RADIATION DOSAGE (If Supplied By Facility): CTDIvol = ( 25.75 ) mGy, DLP = ( 2129.08 ) mGycm TECHNIQUE: IV 100mL Isovue-370 was administered. Transaxial images were obtained from the dome of the diaphragm to the symphysis pubis. Multiplanar coronal and sagittal images were reformatted. Individualized Dose Optimization Techniques Were Used For This CT. COMPARISON: None FINDINGS: Large right pleural effusion with compressive right lower lobe and partial right middle and upper lobe atelectasis. The visualized portions of the heart are within normal limits. Normal liver. Moderate ascites. Normal gallbladder and extrahepatic biliary system. A few tiny gallstones. Normal spleen. There is diffuse atrophy of the pancreas. Normal bilateral adrenal glands. Normal visualized stomach. Normal small intestine. Normal colon. The appendix is visualized and appears normal. Normal abdominal aorta. No retroperitoneal adenopathy. Normal right kidney. Normal left kidney. Normal urinary bladder. There are prostatic calcifications. Large right upper abdominal wall hernia contains large bowel, mesentery, and fluid. The anterior liver protrudes into the hernia neck. Anasarca. There are diffuse degenerative changes of the visualized lumbar spine. CT/Abdomen/Pelvis W IV Cont ONLY IMPRESSION: 1. Central right upper abdominal wall hernia contains:, Mesentery, and fluid. No finding to suggest incarceration. 2. Third spacing of fluid, including large right pleural effusion and total atelectatic collapse of the right lower lobe. Electronically Signed: Feliciano Mcknight MD at 18:33 EDT ,
[2022-12-11 17:58] LABS: Differential Comment SCANNED
[2022-12-11 18:00] LABS: Anisocytosis 2+; Crenated RBC 1+; Hypochromasia 2+; Schistocytes RARE; Target Cells 1+
[2022-12-11 18:40] VITALS: BP 160/79; PULSE 76; PULSE 77; RESP 16; TEMP 36.6; O2SAT 100
[2022-12-11 18:41] LABS: LDH 263 U/L (87-241)
--- NOTE | 2022-12-11 18:48 | ED.RN ---
SPOKE WITH HERMINIA GRAY, AT [facility] ABOUT ADMISSION OF PT
--- NOTE | 2022-12-11 19:35 | HP.PCM.HOS_ITS ---
HPI - General General Date of Admission: 12/11/22 Date of Service: 12/11/22 Chief Complaint: Elevated bilirubin, lethargy HPI Narrative RAPHAEL HADDAD, is a 72 M who presents to the emergency room at [facility] by squad from the local [facility] care facility where he is receiving rehab services due to an elevated bilirubin and increased lethargy and confusion. Patient has a history of chronic hypoxic respiratory failure, right pleural effusion, chronic anticoagulation due to mechanical heart valve, coronary artery disease, and systolic CHF as well as cognitive impairment-type unknown. Work-up in the emergency room today included labs-patient's white blood cell count was low at 4.2, hemoglobin was 7, INR was 1.4, potassium was 3.2, BUN was 39, glucose was 180, total bilirubin was 2.7, alkaline phosphatase was 196, LDH was 263. Patient had a CT of his abdomen and pelvis, there was noted to be a large right pleural effusion with total atelectatic collapse of the right lower lobe, there was a large right upper abdominal wall hernia, anasarca was noted. There is noted to be moderate ascites, liver appeared normal. Patient was admitted to [place] [id number] for acute on chronic anemia and recurrent right pleural effusion, he will receive 1 unit of packed red blood cells, liver profile will be repeated tomorrow as well as other labs. I talked extensively with the shelter today, they stated that the patient was on subcu Lovenox for his mechanical heart valve due to planned vascular intervention, he had also fallen recently at the shelter and sustained some bruising, on examination today, patient does have some bruising over his left buttocks area but that is the only real area I see bruising. Patient has been also confused off-and-on at the facility according to the nursing staff at the shelter. Patient's oxygen requirement appears to be 3 L which is his baseline, we probably will not be able to do a thoracentesis till early next week unless the patient's respiratory status worsens. Nursing at the shelter states that the patient is a DNR CC arrest. FORMERLY [facility], [facility] Medical History Acute and chronic respiratory failure with hypercapnia Acute exacerbation of CHF (congestive heart failure) Acute hypercapnic respiratory failure Adult failure to thrive ZOFIA (acute kidney injury) Anticoagulant long-term use Atherosclerosis of coronary artery without angina pectoris Atherosclerosis of lower extremity with ulceration Bleeding disorder CHF (congestive heart failure) Chronic combined systolic and diastolic CHF (congestive heart failure) Congestive heart failure COPD (chronic obstructive pulmonary disease) COPD (chronic obstructive pulmonary disease) Diabetic foot infection DVT (deep venous thrombosis) Elevated troponin Encephalopathy acute Essential (primary) hypertension Gangrene of toe GERD (gastroesophageal reflux disease) History of non-ST elevation myocardial infarction (NSTEMI) (04/23/20) Hyperlipidemia Inability to walk Ischemic cardiomyopathy Kidney stones 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 Lumbar spinal stenosis MSSA (methicillin susceptible Staphylococcus aureus) infection Nicotine dependence Non-healing surgical wound (05/01/20) Non-pressure chronic ulcer of other part of left foot with fat layer exposed Non-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 Nonrheumatic aortic (valve) stenosis 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 Obstructive sleep apnea Osteomyelitis Osteomyelitis of toe of right foot Peripheral vascular occlusive disease Pleural effusion, right Recurrent right pleural effusion Scabies infestation Secondary pulmonary arterial hypertension Smoker Sternal wound infection Type 2 diabetes mellitus 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 foot with fat layer exposed Ulcer of right foot with necrosis of bone Home Medications atorvastatin 40 mg tablet 40 mg PO QHS cholesterol 11/12/20 [History Last Taken 09/20/21] lisinopril 5 mg tablet 5 mg PO DAILY HTN 10/08/21 [History Last Taken Unknown] ferrous sulfate 325 mg (65 mg iron) tablet 325 mg PO DAILY 10/29/22 [History Last Taken Unknown] ipratropium 0.5 mg-albuterol 3 mg (2.5 mg base)/3 mL nebulization soln 3 ml inhalation Q4H PRN SOB 10/29/22 [History Last Taken Unknown] doxycycline hyclate 100 mg capsule 100 mg PO BID #20 caps 11/10/22 [Rx Last Taken Unknown] acetaminophen 325 mg tablet 650 mg PO Q6H PRN PRN Pain 1-10 Or Fever >100.7 #0 tabs 11/12/22 [Rx Last Taken Unknown] furosemide 40 mg tablet 40 mg PO DAILY #0 tabs 11/12/22 [Rx Last Taken Unknown] insulin glargine-yfgn 100 unit/mL (3 mL) subcutaneous pen 15 unit (0.15 mL) subcut DAILY #0 mL 11/12/22 [Rx Last Taken Unknown] metoprolol succinate 100 mg tablet,extended release 24 hr 100 mg PO DAILY #0 tabs 11/12/22 [Rx Last Taken Unknown] enoxaparin 100 mg/mL subcutaneous syringe (Lovenox) 100 mg subcut Q12H 30 days #60 mL 12/02/22 [Rx Last Taken Unknown] cyclobenzaprine 10 mg tablet 10 mg PO TID PRN Muscle Pain 12/11/22 [History Last Taken Unknown] insulin lispro 100 unit/mL subcutaneous pen (Humalog KwikPen (U-100) Insulin) unit subcut ACHS 12/11/22 [History Last Taken Unknown] oxycodone 5 mg capsule 5 mg PO BID PRN Pain 12/11/22 [History Last Taken Unknown] Allergy/AdvReac Type Severity Reaction Status Date / Time No Known Allergies Allergy Verified 11/16/22 14:11 Family History Mother Diabetes Heart disease Father Diabetes Surgical History H/O coronary artery bypass surgery (05/01/20) History of angioplasty of peripheral vessel (01/02/10) History of femoropopliteal bypass (2008) History of incision and drainage (09/22/20) History of left heart catheterization (04/23/20) History of lumbar laminectomy History of mechanical aortic valve replacement Social History household members: significant other Smoking Status: Current every day smoker tobacco type: cigarettes alcohol intake: never substance use type: does not use caffeine: No ROS ROS Narrative Review of systems could not be obtained due to lethargy and confusion, information was obtained from the patient's medical record Vital Signs Vital Signs Vital Signs: 12/11/22 16:23 12/11/22 16:50 12/11/22 18:40 Temperature 97.2 F L Temperature Source Temporal Pulse Rate 80 77 Respiratory Rate 16 16 Respiratory Effort Normal Non-Labored Blood Pressure 137/73 H Blood Pressure Mean 94 Pulse Ox 100 100 Oxygen Delivery Method Nasal Cannula Nasal Cannula Oxygen Flow Rate (L/min) 3 3 12/11/22 18:40 Temperature 97.9 F Temperature Source Temporal Pulse Rate 76 Respiratory Rate 16 Respiratory Effort Blood Pressure 160/79 H Blood Pressure Mean 106 Pulse Ox 100 Oxygen Delivery Method Nasal Cannula Oxygen Flow Rate (L/min) 3 Weight Weight: 101.9 kg Body Mass Index (BMI) 31.3 Physical Exam Const Constitutional Narrative: Patient is somnolent, he does respond to painful stimuli and he will speak 2 or 3 words and answer simple questions, otherwise the patient has cognitive impairment General Appearance: well developed HEENT normocephalic, head/scalp atraumatic and moist oral mucous membranes Eyes PERRL, EOMs intact bilaterally and conjunctivae normal Neck supple, no JVD, thyroid normal and no carotid bruits General: trachea midline Resp normal respiratory effort, no retractions and no use of accessory muscles Resp Narrative: Decreased breath sounds are noted over the right lung Auscultation: Negative for rales, rhonchi or wheezes Cardio regular rate, regular rhythm, S1 normal heart sound, S2 normal heart sound and no gallops Cardio Narrative: Mechanical heart sound is noted over the precordium GI normal to inspection, nondistended, normoactive bowel sounds, soft to palpation and non-tender GI Narrative: Patient has abdominal wall edema noted in his abdomen is distended, it is nontender and there is no rebound abdominal tenderness noted. Patient has a large ventral hernia noted in the upper abdominal area extending into the lower chest wall area Extremity Extremity Narrative: There is generalized edema noted over the lower legs, it is nonpitting Skin Skin Narrative: There is an old ecchymotic area noted over the patient's left upper buttocks area General Skin Exam: no breakdown Neuro CN's II-XII intact bilaterally and no sensory deficits noted Psych Psych Narrative: Patient has flat affect, he has cognitive impairment Results Lab / Micro Data Result Diagrams: 12/11/22 16:45 12/11/22 16:45 Labs: Laboratory Results - last 24 hr 12/11/22 16:45: WBC 4.2 L, RBC 2.31 L, Hgb 7.0 L, Hct 22.6 L, MCV 97.8 H, MCH 30.3, MCHC 31.0 L, RDW Std Deviation 95.2 H, RDW Coeff of Estrada 27.6 H, Plt Count 206, MPV 10.3, Immature Gran % (Auto) 0.200, Neut % (Auto) 61.5, Lymph % (Auto) 19.6, [place] % (Auto) 16.3 H, Eos % (Auto) 1.9, Baso % (Auto) 0.5, Absolute Neuts (auto) 2.6, Absolute Lymphs (auto) 0.82 L, Nucleated RBC % 0.5, Differential Comment SCANNED, Hypochromasia 2+, Anisocytosis 2+, Target Cells 1+, Crenated Cell 1+, Schistocytes RARE 12/11/22 16:45: PT 17.7 H, INR 1.4 12/11/22 16:45: Sodium 142, Potassium 3.2 L, Chloride 104, Carbon Dioxide 32.0, Anion Gap 6, BUN 39 H, Creatinine 1.03, Estim Creat Clear Calc 71.08, Est GFR (MDRD) Af Amer 92, Est GFR (MDRD) Non-Af 76, BUN/Creatinine Ratio 37.9 H, Glucose 180 H, Calcium 8.6, Total Bilirubin 2.70 H, Direct Bilirubin 1.50 H, AST 21, ALT 13 L, Alkaline Phosphatase 196 H, Total Protein 6.7, Albumin 2.6 L, Globulin 4.1, Lipase < 10 L 12/11/22 16:45: Blood Type B POSITIVE, Antibody Screen NEGATIVE 12/11/22 16:45: Lactate Dehydrogenase 263 H 12/11/22 16:45: Crossmatch See Detail Radiology Impression Abdomen/Pelvis CT 12/11/22 17:40 IMPRESSION: 1. Central right upper abdominal wall hernia contains:, Mesentery, and fluid. No finding to suggest incarceration. 2. Third spacing of fluid, including large right pleural effusion and total atelectatic collapse of the right lower lobe. Electronically Signed: Feliciano Mcknight MD at 18:33 EDT , Assessment & Plan Assessment/Plan (1) Hyperbilirubinemia: PLAN: Plan 1. Acute on chronic anemia-etiology unclear, patient will be admitted to [facility] 3, he will receive 1 unit of packed red blood cells, labs will be monitored #2 large right recurrent pleural effusion-he will ultimately need a right thoracentesis, he is not in any respiratory distress at this time and his oxygenation appears stable. This more than likely will not be able to be performed until early next week #3 hyperbilirubinemia-etiology unclear, it is possible that the patient's recent fall at the shelter could have caused an increased bilirubin because he is fully anticoagulated due to his mechanical heart valve, I will repeat his liver function test tomorrow #4 mechanical aortic heart valve-patient is currently on subcu Lovenox, he will remain on this for now #5 chronic hypoxic respiratory failure-patient is currently on 3 L of nasal cannula oxygen #6 coronary artery disease-it appears stable at this time #7 cognitive impairment-this appears to be chronic in nature, I will check an ammonia level on the patient, the etiology of the cognitive impairment is not known #8 peripheral vascular disease-patient is due to have an angiogram as an outpatient #9 generalized debility secondary to multiple medical problems-patient will be seen by PT and OT, complicates care, medical course, recovery, and prognosis. Patient is a DNR CC arrest, I will make him a DNR CC arrest without intubation, patient does not have a POA at this time. Total clinical time spent by myself addressing the patient's medical problems, reviewing all of his data, and collaborating with the patient's care team: 75 minutes Charges/Coding Visit Charges Inpatient E&M: 04728 Init Hosp L3
[2022-12-11 20:33] VITALS: BP 137/69; PULSE 77; RESP 20; TEMP 36.4; O2SAT 99
[2022-12-11 20:35] VITALS: PULSE 75; RESP 22; O2SAT 95
[2022-12-11] MEDS: Ipratropium/Albuterol Sulfate 3 ML AMPUL.NEB INHALATION (20:35)
--- NOTE | 2022-12-11 21:52 | NURSING ---
Went into pt room to put a garner cath in. Pt said no he did not want that. He said the [facility] told me i wont need that. Pt refused to have garner cath placed. Pt penis cleaned and attempted to get a clean catch pt was unable to void
[2022-12-11 23:08] VITALS: BP 137/74; PULSE 61; RESP 20; TEMP 36.5; O2SAT 98
[2022-12-11] MEDS: 0.9% Saline Lock 10 ML Syringe IV (23:10)
[2022-12-11 23:20] VITALS: BP 140/68; PULSE 63; RESP 20; TEMP 36.6; O2SAT 98
[2022-12-11] MEDS: Enoxaparin 100 MG/ML Syringe SC (23:24)
[2022-12-11] MEDS: Potassium Chloride Oral Tablet 20 MEQ 40 MEQ PO (23:24)
[2022-12-11] MEDS: Atorvastatin Calcium 40 MG Tablet PO (23:24)
[2022-12-11] MEDS: Acetaminophen 325 MG Tablet 650 MG PO (23:35)
[2022-12-12] VITALS (10 sets, daily range): BP systolic 111–149; BP diastolic 54–89; PULSE 73–91; RESP 18–20; TEMP 36.3–36.7; O2SAT 94–100; BMI 30.1
[2022-12-12 00:16] LABS: Bedside Glucose 146 mg/dL (74-106)
--- NOTE | 2022-12-12 03:10 | RAD_ITS ---
INDICATION: crackles EXAMINATION/TECHNIQUE: X-RAY - XR Chest 1 View COMPARISON: Abdominal CT previous day and chest radiograph from 11/05/2022. Findings: Single frontal view of the chest. LUNG PARENCHYMA/PLEURA: Interval worsening of large right pleural effusion and associated near complete right lung airspace disease. No pneumothorax. HEART/GREAT VESSELS: Cardiomediastinal silhouette is partially obscured. BONES: Osseous structures are unremarkable for age. RAD/Chest 1 View (Portable) IMPRESSION: Interval worsening of large right pleural effusion and associated near complete right lung airspace disease from previous month, to include atelectasis versus pneumonia. Recommend follow-up to resolution is neoplastic process is not excluded. Electronically Signed: Thee Arellano MD at 4:17 EDT ,
[2022-12-12] MEDS: Furosemide 40 MG/4 ML Vial IV ×3 (03:21→17:41)
[2022-12-12] MEDS: 0.9% Saline Lock 10 ML Syringe IV ×3 (03:22→17:41)
[2022-12-12 05:46] LABS: Bacteria 0 SEEN /hpf (None Seen); Mucous, Urine 0 SEEN /hpf (<or=2+); Red Blood Cells-Urine 0 SEEN /hpf (0-5); Squamous Epithelial Cells - UA 0 SEEN /hpf (0-5)
[2022-12-12 05:48] LABS: Color, Urine Yellow (Yellow); Glucose, Dipstick Normal (Normal); Ketone-Dipstick Negative (Negative); Leukocyte Esterase-Dipstick 100 /ul (Negative); Nitrite-Dipstick Negative (Negative); Occult Blood-Urine Negative /ul (Negative); Protein-Dipstick 15 mg/dl (Negative); Specific Gravity, Urine 1.005 (1.002-1.030); Urine Bilirubin Dipstick Negative (Negative); Urine Clarity Clear (Clear); Urine Urobilinogen 4 mg/dl (Normal)
[2022-12-12 05:54] LABS: White Blood Cells 0-5 SEEN /hpf (0-5)
[2022-12-12 06:15] LABS: Absolute Lymphocyte Count 0.75 X10^3/uL (0.83-4.51); Absolute Neutrophil Count 2.9 X10^3/uL (2.0-7.7); Basophil# 0.02 X10^3/uL; Basophil% 0.4 % (0-1); Eosinophil# 0.12 X10^3/uL; Eosinophils% 2.7 % (0-5); Hematocrit 25.4 % (40-54); Hemoglobin 7.6 g/dL (13.0-16.5); Lymphocyte # 0.75 X10^3/ul (0.83-4.51); Lymphocyte % 16.7 % (19-41); Mean Corp Hgb Conc 29.9 g/dL (32-36); Mean Corpuscular Hgb 29.3 pg (27.0-32.0); Mean Corpuscular Volume 98.1 fL (80-94); Mean Platelet Vol. 10.8 fl (6.2-12.0); Monocyte# 0.68 X10^3/uL; Monocyte% 15.1 % (0-10); NRBC Flagged by Analyzer 0 % (0-5); Neutrophil # 2.91 X10^3/uL (2.7-7.7); Neutrophil % 64.9 % (47-70); POSITIVE MORPHOLOGY YES; Platelet Count 228 K/mm3 (150-450); RBC Distribution Width CV 26.3 % (11.6-14.6); RBC Distribution Width SD 91.6 fl (35.1-43.9); Red Blood Count 2.59 M/mm3 (4.6-6.2); White Blood Count 4.5 K/mm3 (4.4-11.0)
[2022-12-12 06:16] LABS: Differential Indicated SCAN CRITERIA MET
[2022-12-12 06:46] LABS: Anisocytosis 2+; Differential Comment SCANNED; Macrocytosis 1+; Microcytosis 1+; Polychromasia 1+
[2022-12-12 07:01] LABS: ALB/GLOB Ratio 0.6 RATIO (0.9-2.4); AST(SGOT) 22 U/L (15-37); Alanine Aminotransfer ALT/SGPT 12 U/L (16-61); Albumin, Serum 2.4 g/dL (3.2-5.0); Alkaline Phosphatase 175 U/L (45-117); Anion Gap 7 (5-15); BUN 32 mg/dL (7-18); BUN/Creat Ratio 39.4 RATIO (10-20); Calcium,Total 8.3 mg/dL (8.5-10.1); Chloride 106 mmol/L (98-107); Creatinine, Serum 0.81 mg/dL (0.70-1.30); EST Glomerular Filtration Rate 100 mL/min (>60); Est Glom Filt Rate - Afr Amer 121 mL/min (>60); Estimated Creatinine Clearance 90.38 ml/min; Glucose 130 mg/dL (74-106); Potassium 3.2 mmol/L (3.5-5.1); Protein, Total 6.4 g/dL (6.4-8.2); Sodium Level 140 mmol/L (136-145)
[2022-12-12 07:23] LABS: Bedside Glucose 136 mg/dL (74-106)
[2022-12-12] MEDS: Ipratropium/Albuterol Sulfate 3 ML AMPUL.NEB INHALATION ×3 (07:40→19:24)
[2022-12-12] MEDS: Metoprolol(XL)Succ 100 MG Tablet PO (08:39)
[2022-12-12] MEDS: Enoxaparin 100 MG/ML Syringe SC ×2 (08:39→21:36)
[2022-12-12] MEDS: Lisinopril 5 MG Tablet PO (08:40)
[2022-12-12] MEDS: Potassium Chloride Oral Tablet 20 MEQ PO ×2 (08:40→16:46)
[2022-12-12] MEDS: Ferrous Sulfate 325 MG Tablet PO (08:40)
[2022-12-12] MEDS: Nystatin Powder 15gm Bottle 1 APPLIC TOPICAL ×2 (08:40→21:35)
[2022-12-12] MEDS: Insulin Glargine-YFGN 100 UNIT/ML Pen 15 UNIT SC (09:59)
--- NOTE | 2022-12-12 10:16 | PCM.PN.HOSP ---
Reason for Visit Reason for Visit: Diagnoses Other disorders of bilirubin metabolism (12/11/22) Subjective Subjective Patient was seen and examined today, he appears more alert, he states he is comfortable at this time. Oxygen requirement has not changed since yesterday. Objective Data Objective Data Vital Signs: Vital Signs Temp Pulse Resp BP Pulse Ox O2 Del Method O2 Flow Rate 97.4 F L 91 20 H 149/82 H 100 Nasal Cannula 3 12/12/22 08:45 12/12/22 08:45 12/12/22 08:45 12/12/22 08:45 12/12/22 08:45 12/12/22 08:52 12/12/22 08:52 Oxygen Flow Rate (L/min) 3 Oxygen Delivery Method Nasal Cannula Weight: 97.7 kg Body Mass Index (BMI) 30.1 Intake & Output: Intake and Output for Last 24 Hours 12/10/22 12/11/22 12/12/22 23:59 23:59 23:59 Intake Total 0 / 0 400 / 400 Output Total 850 / 850 Balance 0 / -400 -450 / -450 Lab / Micro Data Result Diagrams: 12/12/22 05:46 12/12/22 05:46 Labs: Laboratory Results - last 24 hr 12/11/22 16:45: WBC 4.2 L, RBC 2.31 L, Hgb 7.0 L, Hct 22.6 L, MCV 97.8 H, MCH 30.3, MCHC 31.0 L, RDW Std Deviation 95.2 H, RDW Coeff of Estrada 27.6 H, Plt Count 206, MPV 10.3, Immature Gran % (Auto) 0.200, Neut % (Auto) 61.5, Lymph % (Auto) 19.6, [place] % (Auto) 16.3 H, Eos % (Auto) 1.9, Baso % (Auto) 0.5, Absolute Neuts (auto) 2.6, Absolute Lymphs (auto) 0.82 L, Nucleated RBC % 0.5, Differential Comment SCANNED, Hypochromasia 2+, Anisocytosis 2+, Target Cells 1+, Crenated Cell 1+, Schistocytes RARE 12/11/22 16:45: PT 17.7 H, INR 1.4 12/11/22 16:45: Sodium 142, Potassium 3.2 L, Chloride 104, Carbon Dioxide 32.0, Anion Gap 6, BUN 39 H, Creatinine 1.03, Estim Creat Clear Calc 71.08, Est GFR (MDRD) Af Amer 92, Est GFR (MDRD) Non-Af 76, BUN/Creatinine Ratio 37.9 H, Glucose 180 H, Calcium 8.6, Total Bilirubin 2.70 H, Direct Bilirubin 1.50 H, AST 21, ALT 13 L, Alkaline Phosphatase 196 H, Total Protein 6.7, Albumin 2.6 L, Globulin 4.1, Lipase < 10 L 12/11/22 16:45: Blood Type B POSITIVE, Antibody Screen NEGATIVE 12/11/22 16:45: Lactate Dehydrogenase 263 H 12/11/22 16:45: Crossmatch See Detail 12/11/22 23:27: POC Glucose 146 H 12/12/22 05:20: Urine Color Yellow, Urine Clarity Clear, Urine pH 7.0, Ur Specific [place] 1.005, Urine Protein 15 H, Urine Glucose (UA) Normal, Urine Ketones Negative, Urine Occult Blood Negative, Urine Nitrite Negative, Urine Bilirubin Negative, Urine Urobilinogen 4 H, Ur Leukocyte Esterase 100 H, Urine RBC 0 SEEN, Urine WBC 0-5 SEEN, Ur Squamous Epith Cells 0 SEEN, Urine Bacteria 0 SEEN, Urine Mucus 0 SEEN 12/12/22 05:46: WBC 4.5, RBC 2.59 L, Hgb 7.6 L, Hct 25.4 L, MCV 98.1 H, MCH 29.3, MCHC 29.9 L, RDW Std Deviation 91.6 H, RDW Coeff of Estrada 26.3 H, Plt Count 228, MPV 10.8, Immature Gran % (Auto) 0.200, Neut % (Auto) 64.9, Lymph % (Auto) 16.7 L, [place] % (Auto) 15.1 H, Eos % (Auto) 2.7, Baso % (Auto) 0.4, Absolute Neuts (auto) 2.9, Absolute Lymphs (auto) 0.75 L, Nucleated RBC % 0, Differential Comment SCANNED, Polychromasia 1+, Anisocytosis 2+, Microcytosis 1+, Macrocytosis 1+ 12/12/22 05:46: Sodium 140, Potassium 3.2 L, Chloride 106, Carbon Dioxide 27.0, Anion Gap 7, BUN 32 H, Creatinine 0.81, Estim Creat Clear Calc 90.38, Est GFR (MDRD) Af Amer 121, Est GFR (MDRD) Non-Af 100, BUN/Creatinine Ratio 39.4 H, Glucose 130 H, Calcium 8.3 L, Total Bilirubin 2.80 H, AST 22, ALT 12 L, Alkaline Phosphatase 175 H, Total Protein 6.4, Albumin 2.4 L, Globulin 4.0, Albumin/Globulin Ratio 0.6 L 12/12/22 06:55: POC Glucose 136 H Radiography Diagnostic Testing: Radiology Impression Abdomen/Pelvis CT 12/11/22 17:40 IMPRESSION: 1. Central right upper abdominal wall hernia contains:, Mesentery, and fluid. No finding to suggest incarceration. 2. Third spacing of fluid, including large right pleural effusion and total atelectatic collapse of the right lower lobe. Electronically Signed: Feliciano Mcknight MD at 18:33 EDT , Chest X-Ray 12/12/22 03:10 IMPRESSION: Interval worsening of large right pleural effusion and associated near complete right lung airspace disease from previous month, to include atelectasis versus pneumonia. Recommend follow-up to resolution is neoplastic process is not excluded. Electronically Signed: Thee Arellano MD at 4:17 EDT , Physical Exam Const alert and no apparent distress General Appearance: cooperative, well kempt and well developed Orientation / Consciousness: awake, oriented to person and oriented to place HEENT normocephalic, head/scalp atraumatic and moist oral mucous membranes Eyes PERRL, EOMs intact bilaterally and conjunctivae normal Neck supple, no JVD, thyroid normal and no carotid bruits General: trachea midline Resp normal respiratory effort, no retractions and no use of accessory muscles Resp Narrative: Decreased breath sounds are noted over the right lung field Auscultation: Negative for rales, rhonchi or wheezes Cardio regular rate, regular rhythm, S1 normal heart sound, S2 normal heart sound, no murmurs, no rub and no gallops GI normal to inspection, nondistended, normoactive bowel sounds, soft to palpation, non-tender and non-distended GI Narrative: Large right upper abdominal ventral hernia is noted to be present extending into the right lower chest wall area Extremity Extremity Narrative: There is mild generalized edema noted over the lower legs Skin Skin Narrative: There is an open area over the dorsal aspect of the right second toe, there is an opening that appears to extend to the joint space of the right second toe Neuro CN's II-XII intact bilaterally, moves all extremities, no focal motor deficits and no sensory deficits noted Sensorium / Orientation: awake, alert, oriented to person and oriented to place Speech: speech normal Psych affect normal Assessment & Plan Assessment/Plan (1) Hyperbilirubinemia: PLAN: Plan 1. Acute on chronic anemia requiring transfusion-etiology unclear, I feel this is probably secondary to a recent fall with bruising of the right buttocks area/ right upper leg area, I talked to vascular surgery and they attempted to do an angiogram on the patient approximately 2 weeks ago and he had just fallen and there was a large area of bruising over the right upper buttocks area according to the vascular surgeon, patient could not lie flat on the exam table and so they canceled the angiogram. I talked to vascular surgery today and they would like to reschedule the angiogram and possibly do it on Tuesday, I will make the patient n.p.o. after midnight on Tuesday. CBC will be repeated tomorrow #2 large right recurrent pleural effusion-he will ultimately need a right thoracentesis, he is not in any respiratory distress at this time and his oxygenation appears stable. This more than likely will not be able to be performed until Tuesday unless the patient becomes symptomatic #3 hyperbilirubinemia-etiology unclear, it is possible that the patient's recent fall at the care home could have caused an increased bilirubin because he is fully anticoagulated due to his mechanical heart valve, I will repeat his liver function test tomorrow, bilirubin today was 2.8 #4 mechanical aortic heart valve-patient is currently on subcu Lovenox, he will remain on this for now #5 chronic hypoxic respiratory failure-patient is currently on 3 L of nasal cannula oxygen #6 coronary artery disease-it appears stable at this time #7 cognitive impairment-this appears to be chronic in nature, patient appears more alert today and less somnolent, I did not do an ammonia level on him yesterday, I have decided just continue to observe the patient #8 peripheral vascular disease-we will plan to do the patient's angiogram while he is in the hospital, the right second toe will need an amputation if vascular surgery is successful with opening up blood flow to that area #9 generalized debility secondary to multiple medical problems-patient will be seen by PT and OT, complicates care, medical course, recovery, and prognosis. #10 open wound to the right second toe-I do not feel the patient needs to be on antibiotics at this time, I will have nursing dress the area, wound care can see the patient on Tuesday Patient is a DNR CC arrest, I will make him a DNR CC arrest without intubation, patient does not have a POA at this time. Total clinical time spent by myself addressing the patient's medical problems, reviewing all of his data, and collaborating with the patient's care team: 35 minutes Charges/Coding Visit Charges Inpatient E&M: 60111 Subs Hosp L2
[2022-12-12 10:25] LABS: Bedside Glucose 136 mg/dL (74-106)
[2022-12-12] MEDS: Acetaminophen 325 MG Tablet 650 MG PO (13:13)
[2022-12-12 14:56] LABS: Bedside Glucose 158 mg/dL (74-106)
[2022-12-12] MEDS: Insulin Lispro 100 UNIT/ML INSULN.PEN SC ×2 (16:46→21:36)
[2022-12-12 16:59] LABS: Bedside Glucose 187 mg/dL (74-106)
[2022-12-12] MEDS: Menthol/Lanolin/Calamine/Znox 113 GM Tube 1 APPLIC TOPICAL (21:34)
[2022-12-12] MEDS: Atorvastatin Calcium 40 MG Tablet PO (21:36)
[2022-12-12 21:58] LABS: Bedside Glucose 180 mg/dL (74-106)
[2022-12-13] VITALS (9 sets, daily range): BP systolic 106–141; BP diastolic 61–75; PULSE 70–80; RESP 18–21; TEMP 36.4–36.8; O2SAT 97–100; BMI 30.2
[2022-12-13 05:55] LABS: Absolute Lymphocyte Count 0.65 X10^3/uL (0.83-4.51); Basophil# 0.01 X10^3/uL; Basophil% 0.2 % (0-1); Eosinophil# 0.11 X10^3/uL; Eosinophils% 2.5 % (0-5); Hematocrit 26.4 % (40-54); Hemoglobin 7.6 g/dL (13.0-16.5); Lymphocyte # 0.65 X10^3/ul (0.83-4.51); Lymphocyte % 14.9 % (19-41); Mean Corp Hgb Conc 28.8 g/dL (32-36); Mean Corpuscular Hgb 28.9 pg (27.0-32.0); Mean Corpuscular Volume 100.4 fL (80-94); Mean Platelet Vol. 10.9 fl (6.2-12.0); Monocyte# 0.62 X10^3/uL; Monocyte% 14.2 % (0-10); NRBC Flagged by Analyzer 0 % (0-5); Neutrophil # 2.96 X10^3/uL (2.7-7.7); Neutrophil % 67.7 % (47-70); POSITIVE MORPHOLOGY YES; Platelet Count 238 K/mm3 (150-450); RBC Distribution Width SD 92.6 fl (35.1-43.9); Red Blood Count 2.63 M/mm3 (4.6-6.2); White Blood Count 4.4 K/mm3 (4.4-11.0)
[2022-12-13 06:08] LABS: Differential Indicated SCAN CRITERIA MET
[2022-12-13] MEDS: Insulin Lispro 100 UNIT/ML INSULN.PEN SC ×4 (06:14→21:12)
[2022-12-13 06:34] LABS: Bedside Glucose 164 mg/dL (74-106)
[2022-12-13 06:41] LABS: Macrocytosis 1+; Microcytosis 1+
[2022-12-13 06:42] LABS: Anisocytosis 2+; Hypochromasia 1+
[2022-12-13 06:43] LABS: ALB/GLOB Ratio 0.6 RATIO (0.9-2.4); AST(SGOT) 20 U/L (15-37); Alanine Aminotransfer ALT/SGPT 9 U/L (16-61); Albumin, Serum 2.5 g/dL (3.2-5.0); Alkaline Phosphatase 172 U/L (45-117); Anion Gap 6 (5-15); BUN 29 mg/dL (7-18); Calcium,Total 8.2 mg/dL (8.5-10.1); Chloride 105 mmol/L (98-107); Creatinine, Serum 0.78 mg/dL (0.70-1.30); EST Glomerular Filtration Rate 104 mL/min (>60); Est Glom Filt Rate - Afr Amer 126 mL/min (>60); Estimated Creatinine Clearance 73.21 ml/min; Globulin 3.9 g/dL (2.2-4.2); Glucose 172 mg/dL (74-106); Potassium 3.2 mmol/L (3.5-5.1); Protein, Total 6.4 g/dL (6.4-8.2); Sodium Level 141 mmol/L (136-145)
[2022-12-13 06:57] LABS: Bedside Glucose 156 mg/dL (74-106)
[2022-12-13] MEDS: Ipratropium/Albuterol Sulfate 3 ML AMPUL.NEB INHALATION ×3 (07:41→18:58)
[2022-12-13] MEDS: Lisinopril 5 MG Tablet PO (10:06)
[2022-12-13] MEDS: Ferrous Sulfate 325 MG Tablet PO (10:06)
[2022-12-13] MEDS: Furosemide 40 MG/4 ML Vial IV ×2 (10:07→17:34)
[2022-12-13] MEDS: Enoxaparin 100 MG/ML Syringe SC (10:07)
[2022-12-13] MEDS: Menthol/Lanolin/Calamine/Znox 113 GM Tube 1 APPLIC TOPICAL ×2 (10:07→21:12)
[2022-12-13] MEDS: Potassium Chloride Oral Tablet 20 MEQ 40 MEQ PO (10:08)
[2022-12-13] MEDS: Metoprolol(XL)Succ 100 MG Tablet PO (10:08)
[2022-12-13] MEDS: Nystatin Powder 15gm Bottle 1 APPLIC TOPICAL ×2 (10:08→21:12)
[2022-12-13] MEDS: 0.9% Saline Lock 10 ML Syringe IV ×2 (10:10→17:34)
[2022-12-13] MEDS: Insulin Glargine-YFGN 100 UNIT/ML Pen 15 UNIT SC (10:11)
--- NOTE | 2022-12-13 10:34 | PCM.PN.HOSP ---
Reason for Visit Reason for Visit: Diagnoses Other disorders of bilirubin metabolism (12/11/22) Subjective Subjective Patient was seen and examined today, his hemoglobin was 7.6 today. Patient does not appear in any distress today, he does not complain of any chills or fever. Objective Data Objective Data Vital Signs: Vital Signs Temp Pulse Resp BP Pulse Ox O2 Del Method O2 Flow Rate 97.8 F 77 20 H 131/65 H 98 Nasal Cannula 4 12/13/22 09:00 12/13/22 10:08 12/13/22 09:00 12/13/22 09:00 12/13/22 09:22 12/13/22 09:22 12/13/22 09:22 Oxygen Flow Rate (L/min) 4 Oxygen Delivery Method Nasal Cannula Weight: 97.8 kg Body Mass Index (BMI) 30.2 Intake & Output: Intake and Output for Last 24 Hours 12/11/22 12/12/22 12/13/22 23:59 23:59 23:59 Intake Total 0 / 0 400 / 400 Output Total 3500 / 4550 1050 / 1050 Balance 0 / -400 -3100 / -4150 -1050 / -1050 Lab / Micro Data Result Diagrams: 12/13/22 05:20 12/13/22 05:20 Labs: Laboratory Results - last 24 hr 12/12/22 14:38: POC Glucose 158 H 12/12/22 16:37: POC Glucose 187 H 12/12/22 21:33: POC Glucose 180 H 12/13/22 05:20: WBC 4.4, RBC 2.63 L, Hgb 7.6 L, Hct 26.4 L, MCV 100.4 H, MCH 28.9, MCHC 28.8 L, RDW Std Deviation 92.6 H, RDW Coeff of Estrada 26.0 H, Plt Count 238, MPV 10.9, Immature Gran % (Auto) 0.500, Neut % (Auto) 67.7, Lymph % (Auto) 14.9 L, [place] % (Auto) 14.2 H, Eos % (Auto) 2.5, Baso % (Auto) 0.2, Absolute Neuts (auto) 3.0, Absolute Lymphs (auto) 0.65 L, Nucleated RBC % 0, Hypochromasia 1+, Anisocytosis 2+, Microcytosis 1+, Macrocytosis 1+ 12/13/22 05:20: Sodium 141, Potassium 3.2 L, Chloride 105, Carbon Dioxide 30.0, Anion Gap 6, BUN 29 H, Creatinine 0.78, Estim Creat Clear Calc 73.21, Est GFR (MDRD) Af Amer 126, Est GFR (MDRD) Non-Af 104, BUN/Creatinine Ratio 37.0 H, Glucose 172 H, Calcium 8.2 L, Total Bilirubin 2.40 H, AST 20, ALT 9 L, Alkaline Phosphatase 172 H, Total Protein 6.4, Albumin 2.5 L, Globulin 3.9, Albumin/Globulin Ratio 0.6 L 12/13/22 06:12: POC Glucose 164 H 12/13/22 06:35: POC Glucose 156 H Physical Exam Narrative alert and no apparent distress General Appearance: cooperative, well kempt and well developed Orientation / Consciousness: awake, oriented to person and oriented to place HEENT normocephalic, head/scalp atraumatic and moist oral mucous membranes Eyes PERRL, EOMs intact bilaterally and conjunctivae normal Neck supple, no JVD, thyroid normal and no carotid bruits General: trachea midline Resp normal respiratory effort, no retractions and no use of accessory muscles Resp Narrative: Decreased breath sounds are noted over the right lung field Auscultation: Negative for rales, rhonchi or wheezes Cardio regular rate, regular rhythm, S1 normal heart sound, S2 normal heart sound, no murmurs, no rub and no gallops GI normal to inspection, nondistended, normoactive bowel sounds, soft to palpation, non-tender and non-distended GI Narrative: Large right upper abdominal ventral hernia is noted to be present extending into the right lower chest wall area Extremity Extremity Narrative: There is mild generalized edema noted over the lower legs Skin Skin Narrative: There is an open area over the dorsal aspect of the right second toe, there is an opening that appears to extend to the joint space of the right second toe Neuro CN's II-XII intact bilaterally, moves all extremities, no focal motor deficits and no sensory deficits noted Sensorium / Orientation: awake, alert, oriented to person and oriented to place Speech: speech normal Psych affect normal Assessment & Plan Assessment/Plan (1) Anemia: (2) Hyperbilirubinemia: PLAN: Plan 1. Acute on chronic anemia requiring transfusion-etiology unclear, I feel this is probably secondary to a recent fall with bruising of the right buttocks area/ right upper leg area, I talked to vascular surgery and they attempted to do an angiogram on the patient approximately 2 weeks ago and he had just fallen and there was a large area of bruising over the right upper buttocks area according to the vascular surgeon, patient could not lie flat on the exam table and so they canceled the angiogram. I talked to vascular surgery today and they would like to reschedule the angiogram and possibly do it on Tuesday, I will make the patient n.p.o. after midnight on Tuesday. CBC will be repeated tomorrow #2 large right recurrent pleural effusion-patient will need a right-sided thoracentesis tomorrow #3 hyperbilirubinemia-etiology unclear, it is possible that [facility] an increased bilirubin because he is fully anticoagulated due to his mechanical heart valve, I will repeat his liver function test tomorrow, bilirubin today was 2.4 #4 mechanical aortic heart valve-patient is currently on subcu Lovenox, he will remain on this for now #5 chronic hypoxic respiratory failure-patient is currently on 3 L of nasal cannula oxygen #6 coronary artery disease-it appears stable at this time #7 cognitive impairment-this appears to be chronic in nature, patient appears more alert today and less somnolent, I did not do an ammonia level on him yesterday, I have decided just continue to observe the patient #8 peripheral vascular disease-we will plan to do the patient's angiogram while he is in the hospital, the right second toe will need an amputation if vascular surgery is successful with opening up blood flow to that area #9 generalized debility secondary to multiple medical problems-patient will be seen by PT and OT, complicates care, medical course, recovery, and prognosis. #10 open wound to the right second toe-I do not feel the patient needs to be on antibiotics at this time, I will have nursing dress the area, wound care can see the patient on Tuesday, podiatry can see the patient on Tuesday also #11 hypokalemia-patient was given potassium supplementation today, his potassium was 3.2 Patient is a DNR CC arrest, I will make him a DNR CC arrest without intubation, patient does not have a POA at this time. Total clinical time spent by myself addressing the patient's medical problems, reviewing all of his data, and collaborating with the patient's care team: 35 minutes Charges/Coding Visit Charges Inpatient E&M: 83297 Subs Hosp L2
--- NOTE | 2022-12-13 10:39 | US_ITS ---
PROCEDURE: ULTRASOUND GUIDED THORACENTESIS. DATE: December 14, 2022.. INDICATION: Male, 72 years old. Right pleural effusion. PHYSICIAN: Lázaro Archer M.D. PROCEDURE: The risks, benefits, and alternatives to the procedure were explained to the patient. The specific risks of bleeding, infection, and pneumothorax requiring chest tube insertion were discussed and accepted. Written informed consent was obtained. Ultrasonographic evaluation of the right lower pleural space was carried out. An adequate pocket was identified. The patient was placed in the sitting, upright position. The overlying skin was prepped and draped in sterile fashion. 1% lidocaine was administered subcutaneously for local anesthesia. Under ultrasound guidance, a 5 Bengali thoracentesis needle/catheter system was advanced into the right posterior lower pleural fluid collection. Approximately 1870 mL of garry-colored fluid was drained. The catheter was removed, and a sterile dressing was applied. The patient tolerated the procedure well. A chest x-ray was ordered. US/Thoracentesis W US IMPRESSION: Ultrasound-guided right thoracentesis. Electronically Signed: Lázaro Archer MD at 14:26 EDT ,
[2022-12-13 11:17] LABS: International Normalized Ratio 1.4
[2022-12-13 11:19] LABS: Partial Thromboplast Time 63.5 Seconds (24.1-36.2)
[2022-12-13] MEDS: oxyCODONE 5 MG Tablet PO (12:02)
--- NOTE | 2022-12-13 12:02 | NURSING ---
pt asking for something for pain. pt states his back hurts. this RN offered to reposition pt for pain relief, pt refused. I'm fine how I am right now.
[2022-12-13 12:24] LABS: Bedside Glucose 201 mg/dL (74-106)
[2022-12-13] MEDS: Albuterol 2.5 MG/3 ML VIAL.NEB. INHALATION (13:10)
--- NOTE | 2022-12-13 14:22 | PCM.HOSP.N ---
Hospitalist Note Further note: I held the patient's Lovenox starting tonight, I placed a resume date and time and at 12/15/2022 at 10 PM. It is being held due to a possible angiogram to be done on 12/14/2022 and possible foot surgery the following day on 12/15/2022.
[2022-12-13] MEDS: Potassium Chloride Oral Tablet 20 MEQ PO (17:34)
[2022-12-13 19:04] LABS: Bedside Glucose 175 mg/dL (74-106)
[2022-12-13] MEDS: Atorvastatin Calcium 40 MG Tablet PO (21:12)
[2022-12-13 21:35] LABS: Bedside Glucose 182 mg/dL (74-106)
[2022-12-14] VITALS (10 sets, daily range): BP systolic 107–140; BP diastolic 56–98; PULSE 66–109; RESP 18–21; TEMP 36.3–36.9; O2SAT 93–100; BMI 30.2
[2022-12-14 05:46] LABS: Absolute Lymphocyte Count 0.92 X10^3/uL (0.83-4.51); Absolute Neutrophil Count 3.2 X10^3/uL (2.0-7.7); Basophil# 0.03 X10^3/uL; Basophil% 0.6 % (0-1); Eosinophil# 0.14 X10^3/uL; Eosinophils% 2.8 % (0-5); Hematocrit 27.2 % (40-54); Hemoglobin 7.9 g/dL (13.0-16.5); Lymphocyte # 0.92 X10^3/ul (0.83-4.51); Lymphocyte % 18.2 % (19-41); Mean Corpuscular Hgb 29.3 pg (27.0-32.0); Mean Corpuscular Volume 100.7 fL (80-94); Mean Platelet Vol. 10.7 fl (6.2-12.0); Monocyte# 0.77 X10^3/uL; Monocyte% 15.2 % (0-10); NRBC Flagged by Analyzer 0 % (0-5); Neutrophil # 3.18 X10^3/uL (2.7-7.7); POSITIVE MORPHOLOGY YES; Platelet Count 236 K/mm3 (150-450); RBC Distribution Width CV 26.1 % (11.6-14.6); RBC Distribution Width SD 94.2 fl (35.1-43.9); White Blood Count 5.1 K/mm3 (4.4-11.0)
[2022-12-14 05:53] LABS: Differential Indicated SCAN CRITERIA MET
[2022-12-14 06:10] LABS: Bedside Glucose 84 mg/dL (74-106)
[2022-12-14 06:18] LABS: Anisocytosis 2+
[2022-12-14 06:38] LABS: ALB/GLOB Ratio 0.6 RATIO (0.9-2.4); AST(SGOT) 21 U/L (15-37); Alanine Aminotransfer ALT/SGPT 12 U/L (16-61); Albumin, Serum 2.6 g/dL (3.2-5.0); Alkaline Phosphatase 164 U/L (45-117); Anion Gap 4 (5-15); BUN 23 mg/dL (7-18); BUN/Creat Ratio 30.3 RATIO (10-20); Calcium,Total 8.3 mg/dL (8.5-10.1); Chloride 106 mmol/L (98-107); Creatinine, Serum 0.76 mg/dL (0.70-1.30); EST Glomerular Filtration Rate 108 mL/min (>60); Est Glom Filt Rate - Afr Amer 131 mL/min (>60); Estimated Creatinine Clearance 73.21 ml/min; Glucose 80 mg/dL (74-106); Potassium 3.9 mmol/L (3.5-5.1); Protein, Total 6.6 g/dL (6.4-8.2); Sodium Level 140 mmol/L (136-145)
[2022-12-14] MEDS: Ipratropium/Albuterol Sulfate 3 ML AMPUL.NEB INHALATION ×2 (07:08→20:02)
--- NOTE | 2022-12-14 10:44 | EX.PCM.CON.S ---
Assessment & Plan Assessment/Plan (1) Atherosclerosis of lower extremity with ulceration: PLAN: -he is planned for thoracentesis potentially today -plan angio with intervention ; will inform podiatry that he is here as well -ok to resume lovenox when safe from today's procedure; will hold doses Tuesday night and morning HPI Consult Data Date of Consult: 12/14/22 HPI Narrative HPI Narrative: RAPHAEL HADDAD, is a 72 M who is known to me for RLE atherosclerosis with gangrene. Had previously been scheduled for angiogram with possible intervention which has been rescheduled several times for various reasons. He is currently admitted with elevated LFTs that are thought to be related to breakdown of recent large buttock hematoma. He also has SOB/increased work of breathing particularly with exertion. He feels somewhat better since being admitted though has not ambulated much. He has pleural effusion which is potentially getting drained today. On anticoagulation for valve; currently on lovenox. [facility] Medical History Acute and chronic respiratory failure with hypercapnia Acute exacerbation of CHF (congestive heart failure) Acute hypercapnic respiratory failure Adult failure to thrive ZOFIA (acute kidney injury) Anticoagulant long-term use Atherosclerosis of coronary artery without angina pectoris Atherosclerosis of lower extremity with ulceration Bleeding disorder CHF (congestive heart failure) Chronic combined systolic and diastolic CHF (congestive heart failure) Congestive heart failure COPD (chronic obstructive pulmonary disease) COPD (chronic obstructive pulmonary disease) Diabetic foot infection DVT (deep venous thrombosis) Elevated troponin Encephalopathy acute Essential (primary) hypertension Gangrene of toe GERD (gastroesophageal reflux disease) History of non-ST elevation myocardial infarction (NSTEMI) (04/23/20) Hyperlipidemia Inability to walk Ischemic cardiomyopathy Kidney stones 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 Lumbar spinal stenosis MSSA (methicillin susceptible Staphylococcus aureus) infection Nicotine dependence Non-healing surgical wound (05/01/20) Non-pressure chronic ulcer of other part of left foot with fat layer exposed Non-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 Nonrheumatic aortic (valve) stenosis 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 Obstructive sleep apnea Osteomyelitis Osteomyelitis of toe of right foot Peripheral vascular occlusive disease Pleural effusion, right Recurrent right pleural effusion Scabies infestation Secondary pulmonary arterial hypertension Smoker Sternal wound infection Type 2 diabetes mellitus 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 foot with fat layer exposed Ulcer of right foot with necrosis of bone Home Medications atorvastatin 40 mg tablet 40 mg PO QHS cholesterol 11/12/20 [History Last Taken 09/20/21] lisinopril 5 mg tablet 5 mg PO DAILY HTN 10/08/21 [History Last Taken Unknown] ferrous sulfate 325 mg (65 mg iron) tablet 325 mg PO DAILY 10/29/22 [History Last Taken Unknown] ipratropium 0.5 mg-albuterol 3 mg (2.5 mg base)/3 mL nebulization soln 3 ml inhalation Q4H PRN SOB 10/29/22 [History Last Taken Unknown] doxycycline hyclate 100 mg capsule 100 mg PO BID #20 caps 11/10/22 [Rx Last Taken Unknown] acetaminophen 325 mg tablet 650 mg PO Q6H PRN PRN Pain 1-10 Or Fever >100.7 #0 tabs 11/12/22 [Rx Last Taken Unknown] furosemide 40 mg tablet 40 mg PO DAILY #0 tabs 11/12/22 [Rx Last Taken Unknown] insulin glargine-yfgn 100 unit/mL (3 mL) subcutaneous pen 15 unit (0.15 mL) subcut DAILY #0 mL 11/12/22 [Rx Last Taken Unknown] metoprolol succinate 100 mg tablet,extended release 24 hr 100 mg PO DAILY #0 tabs 11/12/22 [Rx Last Taken Unknown] enoxaparin 100 mg/mL subcutaneous syringe (Lovenox) 100 mg subcut Q12H 30 days #60 mL 12/02/22 [Rx Last Taken Unknown] cyclobenzaprine 10 mg tablet 10 mg PO TID PRN Muscle Pain 12/11/22 [History Last Taken Unknown] enoxaparin 100 mg/mL subcutaneous syringe (Lovenox) 100 mg subcut Q12H Check with primary doctor 12/11/22 [History Last Taken Unknown] insulin lispro 100 unit/mL subcutaneous pen (Humalog KwikPen (U-100) Insulin) unit subcut ACHS 12/11/22 [History Last Taken Unknown] oxycodone 5 mg capsule 5 mg PO BID PRN Pain 12/11/22 [History Last Taken Unknown] warfarin 4 mg tablet 4 mg PO DAILY Check with primary doctor 12/11/22 [History Last Taken Unknown] Allergy/AdvReac Type Severity Reaction Status Date / Time No Known Allergies Allergy Verified 11/16/22 14:11 Family History Mother Diabetes Heart disease Father Diabetes Surgical History H/O coronary artery bypass surgery (05/01/20) History of angioplasty of peripheral vessel (01/02/10) History of femoropopliteal bypass (2008) History of incision and drainage (09/22/20) History of left heart catheterization (04/23/20) History of lumbar laminectomy History of mechanical aortic valve replacement Social History household members: significant other Smoking Status: Current every day smoker tobacco type: cigarettes alcohol intake: never substance use type: does not use caffeine: No ROS Constitutional Constitutional: Reports frequent falls; Denies chills, fever(s), lethargy or weakness Eyes Eyes: Denies blind spots, change in vision or loss of vision ENT HEENT: Denies bleeding gums, hoarseness or sore throat Cardiovascular Cardiovascular: Reports dyspnea on exertion and leg ulcers; Denies abdominal pain, bluish discoloration of hand/feet, chest pain with activity, claudication, cold extremities, cyanosis, erythema on extremities, irregular heart rhythm, leg edema, numbness in extremities or weakness in extremities Respiratory/Chest Respiratory/Chest: Reports shortness of breath at rest, shortness of breath with exertion and wheezing; Denies cough or excessive phlegm production Gastrointestinal Gastrointestinal: Denies anorexia, change in stool character, constipation, diarrhea, melena or rectal bleeding Genitourinary Genitourinary: Denies dysuria or hematuria Musculoskeletal Musculoskeletal: Denies abnormal gait Integumentary Integumentary: Reports non-healing lesions; Denies erythema or wounds Neurologic Neurologic: Denies abnormal speech, focal weakness, headache(s), loss of vision, numbness, paresthesias or sensory deficit Hematologic/Lymphatic Hematologic/Lymphatic: Denies easy bleeding, easy bruising or lymphadenopathy Physical Exam Const alert, oriented x3, no apparent distress and healthy appearing General Appearance: cooperative; Negative for combative or lethargic Orientation / Consciousness: awake Exam Limitations: no limitations HEENT Head and Scalp: normocephalic and atraumatic Eyes EOMs intact bilaterally General Eye: normal appearance of both eyes Neck full ROM General: trachea midline Resp normal respiratory effort and no use of accessory muscles Effort and Inspection: Negative for labored, stridor or audible wheezes Cardio regular rate and regular rhythm Peripheral Pulses: femoral pulses present Back/Spine Cervical Spine: cervical ROM normal Extremity full ROM, normal capillary refill and no clubbing, cyanosis or edema Skin no rashes or lesions noted Skin Narrative: right 2nd digit gangrene left digits 2,4 with focal eschar Neuro oriented x3, CN's II-XII intact bilaterally, no focal motor deficits and no sensory deficits noted Psych thought process normal, cooperative, affect normal, speech normal and activity/motor behavior normal Lab / Micro Data Result Diagrams: 12/14/22 05:27 12/14/22 05:27 Labs: Laboratory Results - last 24 hr 12/13/22 11:01: PT 17.0 H, INR 1.4, APTT 63.5 H 12/13/22 11:54: POC Glucose 201 H 12/13/22 17:33: POC Glucose 175 H 12/13/22 21:10: POC Glucose 182 H 12/14/22 05:27: WBC 5.1, RBC 2.70 L, Hgb 7.9 L, Hct 27.2 L, MCV 100.7 H, MCH 29.3, MCHC 29.0 L, RDW Std Deviation 94.2 H, RDW Coeff of Estrada 26.1 H, Plt Count 236, MPV 10.7, Immature Gran % (Auto) 0.200, Neut % (Auto) 63.0, Lymph % (Auto) 18.2 L, [place] % (Auto) 15.2 H, Eos % (Auto) 2.8, Baso % (Auto) 0.6, Absolute Neuts (auto) 3.2, Absolute Lymphs (auto) 0.92, Nucleated RBC % 0, Anisocytosis 2+ 12/14/22 05:27: Sodium 140, Potassium 3.9, Chloride 106, Carbon Dioxide 30.0, Anion Gap 4 L, BUN 23 H, Creatinine 0.76, Estim Creat Clear Calc 73.21, Est GFR (MDRD) Af Amer 131, Est GFR (MDRD) Non-Af 108, BUN/Creatinine Ratio 30.3 H, Glucose 80, Calcium 8.3 L, Total Bilirubin 2.20 H, AST 21, ALT 12 L, Alkaline Phosphatase 164 H, Total Protein 6.6, Albumin 2.6 L, Globulin 4.0, Albumin/Globulin Ratio 0.6 L 12/14/22 05:51: POC Glucose 84 Charges/Coding Visit Charges Inpatient E&M: 16446 Init Hosp L3
--- NOTE | 2022-12-14 11:08 | PCM.PN.HOSP ---
Reason for Visit Reason for Visit: Diagnoses Anemia, unspecified (12/11/22) Other disorders of bilirubin metabolism (12/11/22) Atherosclerosis of [place] arteries of other extremities with ulceration (12/11/22) Subjective Subjective Patient is a 72-year-old gentleman resident at an [facility] who was brought in with increasing confusion and hyperbilirubinemia patient was also found to be anemic with hemoglobin of 7. Was noticed to have a large bruising involving the right buttock and right upper leg area. Objective Data Objective Data Vital Signs: Vital Signs Temp Pulse Resp BP Pulse Ox O2 Del Method O2 Flow Rate 97.3 F L 71 18 114/56 L 100 Nasal Cannula 3 12/14/22 08:30 12/14/22 08:30 12/14/22 09:00 12/14/22 08:30 12/14/22 08:30 12/14/22 09:00 12/14/22 09:00 Oxygen Flow Rate (L/min) 3 Oxygen Delivery Method Nasal Cannula Weight: 97.8 kg Body Mass Index (BMI) 30.2 Intake & Output: Intake and Output for Last 24 Hours 12/12/22 12/13/22 12/14/22 23:59 23:59 23:59 Intake Total 400 / 400 760 / 760 Output Total 3500 / 4550 2250 / 3350 1400 / 1400 Balance -3100 / -4150 -1490 / -2590 -1400 / -1400 Lab / Micro Data Result Diagrams: 12/14/22 05:27 12/14/22 05:27 Labs: Laboratory Results - last 24 hr 12/13/22 11:01: PT 17.0 H, INR 1.4, APTT 63.5 H 12/13/22 11:54: POC Glucose 201 H 12/13/22 17:33: POC Glucose 175 H 12/13/22 21:10: POC Glucose 182 H 12/14/22 05:27: WBC 5.1, RBC 2.70 L, Hgb 7.9 L, Hct 27.2 L, MCV 100.7 H, MCH 29.3, MCHC 29.0 L, RDW Std Deviation 94.2 H, RDW Coeff of Estrada 26.1 H, Plt Count 236, MPV 10.7, Immature Gran % (Auto) 0.200, Neut % (Auto) 63.0, Lymph % (Auto) 18.2 L, [place] % (Auto) 15.2 H, Eos % (Auto) 2.8, Baso % (Auto) 0.6, Absolute Neuts (auto) 3.2, Absolute Lymphs (auto) 0.92, Nucleated RBC % 0, Anisocytosis 2+ 12/14/22 05:27: Sodium 140, Potassium 3.9, Chloride 106, Carbon Dioxide 30.0, Anion Gap 4 L, BUN 23 H, Creatinine 0.76, Estim Creat Clear Calc 73.21, Est GFR (MDRD) Af Amer 131, Est GFR (MDRD) Non-Af 108, BUN/Creatinine Ratio 30.3 H, Glucose 80, Calcium 8.3 L, Total Bilirubin 2.20 H, AST 21, ALT 12 L, Alkaline Phosphatase 164 H, Total Protein 6.6, Albumin 2.6 L, Globulin 4.0, Albumin/Globulin Ratio 0.6 L 12/14/22 05:51: POC Glucose 84 Physical Exam Narrative GENERAL: cooperative HEENT: Atraumatic; normocephalic EYES; Anicteric, Normal Conjunctiva NECK; supple, normal thyroid, RESPIRATORY: Diminished to auscultation CARDIOVASCULAR: Regular S1 S2, GI: soft, normoactive bowel sounds, : No Renal angle tenderness; EXTREMITIES: An area of induration on the medial aspect of the right MUSCULOSKELETAL: no muscle wasting NEURO: Awake; no lateralizing signs. SKIN: Bruising involving the right buttock area PSYCH; Flat affect Assessment & Plan Assessment/Plan (1) Anemia: (2) Hyperbilirubinemia: PLAN: Plan Patient is a 72-year-old gentleman resident at an [facility] who was brought in with increasing confusion and hyperbilirubinemia patient was also found to be anemic with hemoglobin of 7. Was noticed to have a large bruising involving the right buttock and right upper leg area. 1. Acute on chronic anemia ? Suspected to be secondary to acute blood loss anemia given patient significant bruising involving the right upper leg and right buttock area. With patient being symptomatic patient was transfused with 1 unit PRBC consult was placed to vascular surgery plan is for patient to undergo angiogram. Case discussed with Dr. May plan is for patient to undergo angiogram on the morning of 12/16/2022 2. Large right-sided recurrent pleural effusion ? Ultrasound-guided thoracocentesis ordered for therapeutic and diagnostic thoracocentesis 3. Hyperbilirubinemia ? Monitoring with daily LFTs 4..? Aortic valve disease ?Status post aortic valve replacement [facility] mechanical valve.? Patient INR is subtherapeutic apparently due to noncompliance.? Bridged with Lovenox with daily monitoring of INR ordered 5.? Acute on chronic congestive heart failure with reduced ejection fraction ?Echo obtained on 09/22/2021 demonstrated EF of 30% with moderate global hypokinesis.? Patient is on lisinopril as well as furosemide continued 6.? Coronary artery disease ?With previous CABG 7.? Peripheral arterial disease ?With history of femoropopliteal bypass 8.? Diabetes mellitus type 2 ?Did continue home regimen insulin Lantus and held patient metformin with Accu-Cheks before meals and at bedtime with sliding scale coverage 9.? Physical deconditioning - Requested for PT OT eval and social security benefits interviewer to assist with discharge planning; 10. Hypokalemia ? Corrected per protocol repeat labs ordered for a.m. 11.? Open wound involving the right second toe ? Consult placed to podiatry 12 DVT prophylaxis ? Patient is on systemic anticoagulation Time spent in the patient's overall evaluation,decision-making process, review of diagnostic data, adjustment of management, med reconciliation, ordering of labs discussion with other providers, nursing nursing and ancillary staff involved in patient's care documentation, 35 Minutes Charges/Coding Visit Charges Inpatient E&M: 99848 Subs Hosp L2
[2022-12-14 11:26] LABS: Bedside Glucose 94 mg/dL (74-106)
[2022-12-14] MEDS: Menthol/Lanolin/Calamine/Znox 113 GM Tube 1 APPLIC TOPICAL ×2 (11:35→22:11)
[2022-12-14] MEDS: Nystatin Powder 15gm Bottle 1 APPLIC TOPICAL ×2 (11:36→22:12)
--- NOTE | 2022-12-14 11:37 | CASEMGMT ---
Discharge Planning Patient resides at [place] and wishes to return. Return referral sent via [facility]. Lizabeth Church
[2022-12-14] MEDS: 0.9% Saline Lock 10 ML Syringe IV ×2 (11:54→22:10)
[2022-12-14] MEDS: Furosemide 40 MG/4 ML Vial IV ×2 (11:54→18:21)
[2022-12-14] MEDS: Metoprolol(XL)Succ 100 MG Tablet PO (11:55)
--- NOTE | 2022-12-14 11:55 | CASEMGMT ---
Social Work Sw met with pt and introduced self and role of SW. Pt is admitted from [facility] [place] and confirms that he plans to return there. 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 Regina states she will check with staff if pt will need precert to return. Lizabeth d/c professional nursing assistant updated and to send clinical information. Plan: [place], pending precert MELISSA Jones
--- NOTE | 2022-12-14 12:47 | CON.PCM_ITS ---
Assessment & Plan Assessment/Plan (1) Osteomyelitis of toe of right foot: (2) Atherosclerosis of lower extremity with ulceration: PLAN: Plan Evaluation performed. Feet are stable at this time. Will likely plan to proceed with right 2nd toe amputation once lower extremity vascular status is optimized. Continue with betadine soln to toes daily. Keep heels offloaded to help prevent break down. Podiatry will continue to follow. HPI Consult Data Date of Consult: 12/14/22 HPI Narrative Reason for Consultation: Right 2nd toe osteomyelitis HPI Narrative: RAPHAEL HADDAD, is a 72 M who has chronic osteomyelitis right 2nd toe. Also has stable eschars on toes left foot. He had been readmitted. Patient scheduled to have vascular intervention. Feet are stable. He has no other pedial complaints. No f/c/n/v at this time. [facility] Medical History Acute and chronic respiratory failure with hypercapnia Acute exacerbation of CHF (congestive heart failure) Acute hypercapnic respiratory failure Adult failure to thrive ZOFIA (acute kidney injury) Anticoagulant long-term use Atherosclerosis of coronary artery without angina pectoris Atherosclerosis of lower extremity with ulceration Bleeding disorder CHF (congestive heart failure) Chronic combined systolic and diastolic CHF (congestive heart failure) Congestive heart failure COPD (chronic obstructive pulmonary disease) COPD (chronic obstructive pulmonary disease) Diabetic foot infection DVT (deep venous thrombosis) Elevated troponin Encephalopathy acute Essential (primary) hypertension Gangrene of toe GERD (gastroesophageal reflux disease) History of non-ST elevation myocardial infarction (NSTEMI) (04/23/20) Hyperlipidemia Inability to walk Ischemic cardiomyopathy Kidney stones 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 of 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 Lumbar spinal stenosis MSSA (methicillin susceptible Staphylococcus aureus) infection Nicotine dependence Non-healing surgical wound (05/01/20) Non-pressure chronic ulcer of other part of left foot with fat layer exposed Non-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 Nonrheumatic aortic (valve) stenosis 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 Obstructive sleep apnea Osteomyelitis Osteomyelitis of toe of right foot Peripheral vascular occlusive disease Pleural effusion, right Recurrent right pleural effusion Scabies infestation Secondary pulmonary arterial hypertension Smoker Sternal wound infection Type 2 diabetes mellitus 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 foot with fat layer exposed Ulcer of right foot with necrosis of bone Home Medications atorvastatin 40 mg tablet 40 mg PO QHS cholesterol 11/12/20 [History Last Taken 09/20/21] lisinopril 5 mg tablet 5 mg PO DAILY HTN 10/08/21 [History Last Taken Unknown] ferrous sulfate 325 mg (65 mg iron) tablet 325 mg PO DAILY 10/29/22 [History Last Taken Unknown] ipratropium 0.5 mg-albuterol 3 mg (2.5 mg base)/3 mL nebulization soln 3 ml inhalation Q4H PRN SOB 10/29/22 [History Last Taken Unknown] doxycycline hyclate 100 mg capsule 100 mg PO BID #20 caps 11/10/22 [Rx Last Taken Unknown] acetaminophen 325 mg tablet 650 mg PO Q6H PRN PRN Pain 1-10 Or Fever >100.7 #0 tabs 11/12/22 [Rx Last Taken Unknown] furosemide 40 mg tablet 40 mg PO DAILY #0 tabs 11/12/22 [Rx Last Taken Unknown] insulin glargine-yfgn 100 unit/mL (3 mL) subcutaneous pen 15 unit (0.15 mL) subcut DAILY #0 mL 11/12/22 [Rx Last Taken Unknown] metoprolol succinate 100 mg tablet,extended release 24 hr 100 mg PO DAILY #0 tab s 11/12/22 [Rx Last Taken Unknown] enoxaparin 100 mg/mL subcutaneous syringe (Lovenox) 100 mg subcut Q12H 30 days #60 mL 12/02/22 [Rx Last Taken Unknown] cyclobenzaprine 10 mg tablet 10 mg PO TID PRN Muscle Pain 12/11/22 [History Last Taken Unknown] enoxaparin 100 mg/mL subcutaneous syringe (Lovenox) 100 mg subcut Q12H Check with primary doctor 12/11/22 [History Last Taken Unknown] insulin lispro 100 unit/mL subcutaneous pen (Humalog KwikPen (U-100) Insulin) unit subcut ACHS 12/11/22 [History Last Taken Unknown] oxycodone 5 mg capsule 5 mg PO BID PRN Pain 12/11/22 [History Last Taken Unknown] warfarin 4 mg tablet 4 mg PO DAILY Check with primary doctor 12/11/22 [History Last Taken Unknown] Allergy/AdvReac Type Severity Reaction Status Date / Time No Known Allergies Allergy Verified 11/16/22 14:11 Family History Mother Diabetes Heart disease Father Diabetes Surgical History H/O coronary artery bypass surgery (05/01/20) History of angioplasty of peripheral vessel (01/02/10) History of femoropopliteal bypass (2008) History of incision and drainage (09/22/20) History of left heart catheterization (04/23/20) History of lumbar laminectomy History of mechanical aortic valve replacement Social History household members: significant other Smoking Status: Current every day smoker tobacco type: cigarettes alcohol intake: never substance use type: does not use caffeine: No Physical Exam Narrative Right 2nd toe with chronic osteomyelitis with visible head of proximal phalanx in wound dorsal toe - stable and chronic, no maloder, no acute infection. Dry eschars to toes on left foot - chronic and stable, no evidence of infection. No evidence of acute ischemia to the foot or ankle bilateral. Chronic peripheral neuropathy bilateral foot. Right 1st toe is absent c/w previous healed amputa tion. Const alert, oriented x3 and no apparent distress Lab / Micro Data Result Diagrams: 12/14/22 05:27 12/14/22 05:27 Labs: Laboratory Results - last 24 hr 12/13/22 17:33: POC Glucose 175 H 12/13/22 21:10: POC Glucose 182 H 12/14/22 05:27: WBC 5.1, RBC 2.70 L, Hgb 7.9 L, Hct 27.2 L, MCV 100.7 H, MCH 29.3, MCHC 29.0 L, RDW Std Deviation 94.2 H, RDW Coeff of Estrada 26.1 H, Plt Count 236, MPV 10.7, Immature Gran % (Auto) 0.200, Neut % (Auto) 63.0, Lymph % (Auto) 18.2 L, [place] % (Auto) 15.2 H, Eos % (Auto) 2.8, Baso % (Auto) 0.6, Absolute Neuts (auto) 3.2, Absolute Lymphs (auto) 0.92, Nucleated RBC % 0, Anisocytosis 2+ 12/14/22 05:27: Sodium 140, Potassium 3.9, Chloride 106, Carbon Dioxide 30.0, Anion Gap 4 L, BUN 23 H, Creatinine 0.76, Estim Creat Clear Calc 73.21, Est GFR (MDRD) Af Amer 131, Est GFR (MDRD) Non-Af 108, BUN/Creatinine Ratio 30.3 H, Glucose 80, Calcium 8.3 L, Total Bilirubin 2.20 H, AST 21, ALT 12 L, Alkaline Phosphatase 164 H, Total Protein 6.6, Albumin 2.6 L, Globulin 4.0, Albumin/Globulin Ratio 0.6 L 12/14/22 05:51: POC Glucose 84 12/14/22 11:09: POC Glucose 94
[2022-12-14] MEDS: Lidocaine 2% (20 ml mdv) 20 ML Vial INFILT (13:43)
--- NOTE | 2022-12-14 13:55 | RAD_ITS ---
STUDY: X-RAY CHEST REASON FOR EXAM: Male, 72 years old. Post thora TECHNIQUE: A PA inspiration and expiration views. COMPARISON: Comparison is made with prior study dated December 12, 2022. FINDINGS: The patient is status post right thoracentesis. Minimal residual pleural parenchymal changes are seen at the right lung base. I suspect a small amount of fluid within the right major fissure. No definite pneumothorax is seen. RAD/Chest Insp/Exp 2 View IMPRESSION: Status post right thoracentesis. Mild residual pleural parenchymal changes are seen at the right lung base. I suspect a small amount of residual fluid in the right major fissure. Electronically Signed: Lázaro Archer MD at 14:11 EDT ,
[2022-12-14] MEDS: Potassium Chloride Oral Tablet 20 MEQ PO (16:25)
[2022-12-14] MEDS: Morphine 2 MG/ML Syringe IV (18:21)
[2022-12-14 18:45] LABS: Bedside Glucose 101 mg/dL (74-106)
[2022-12-14] MEDS: Enoxaparin 100 MG/ML Syringe SC (22:11)
[2022-12-14] MEDS: Atorvastatin Calcium 40 MG Tablet PO (22:11)
[2022-12-14 23:30] LABS: Bedside Glucose 146 mg/dL (74-106)
[2022-12-15] VITALS (9 sets, daily range): BP systolic 95–135; BP diastolic 59–84; PULSE 87–115; RESP 16–22; TEMP 36.4–37.2; O2SAT 93–99; BMI 26.7
[2022-12-15] MEDS: Acetaminophen 325 MG Tablet 650 MG PO ×3 (02:05→22:28)
[2022-12-15 07:23] LABS: Bedside Glucose 130 mg/dL (74-106)
[2022-12-15] MEDS: Ipratropium/Albuterol Sulfate 3 ML AMPUL.NEB INHALATION ×3 (07:38→19:51)
--- NOTE | 2022-12-15 07:40 | PN.HOSP_ITS ---
Reason for Visit Reason for Visit: Diagnoses Anemia, unspecified (12/11/22) Other disorders of bilirubin metabolism (12/11/22) Atherosclerosis of [place] arteries of other extremities with ulceration (12/11/22) Osteomyelitis, unspecified (12/11/22) Subjective Subjective Patient seen had a relatively uneventful night. Plan is for patient to undergo angiogram on 12/16/[address] May Objective Data Objective Data Vital Signs: Vital Signs Temp Pulse Resp BP Pulse Ox O2 Del Method O2 Flow Rate 97.5 F L 111 H 20 H 121/76 H 97 Nasal Cannula 2 12/15/22 06:03 12/15/22 06:03 12/15/22 06:03 12/15/22 06:03 12/15/22 06:03 12/15/22 06:03 12/15/22 06:03 Oxygen Flow Rate (L/min) [3] 3 Oxygen Flow Rate (L/min) [2] 3 Oxygen Flow Rate (L/min) [1 ( 3 Initial Baseline)] Oxygen Flow Rate (L/min) 2 Oxygen Delivery Method [3] Nasal Cannula Oxygen Delivery Method [2] Room Air Oxygen Delivery Method [1 ( Nasal Cannula Initial Baseline)] Oxygen Delivery Method Nasal Cannula Weight: 86.7 kg Body Mass Index (BMI) 26.7 Intake & Output: Intake and Output for Last 24 Hours 12/13/22 12/14/22 12/15/22 23:59 23:59 23:59 Intake Total 760 / 760 770 / 770 Output Total 2250 / 3350 4120 / 5020 900 / 900 Balance -1490 / -2590 -3350 / -4250 -900 / -900 Lab / Micro Data Result Diagrams: 12/14/22 05:27 12/14/22 05:27 Labs: Laboratory Results - last 24 hr 12/14/22 11:09: POC Glucose 94 12/14/22 16:20: POC Glucose 101 12/14/22 22:06: POC Glucose 146 H 12/15/22 06:12: POC Glucose 130 H Radiography Diagnostic Testing: Radiology Impression Thoracentesis Ultrasound 12/13/22 10:39 IMPRESSION: Ultrasound-guided right thoracentesis. Electronically Signed: Lázaro Archer MD at 14:26 EDT , Chest X-Ray 12/14/22 13:55 IMPRESSION: Status post right thoracentesis. Mild residual pleural parenchymal changes are seen at the right lung base. I suspect a small amount of residual fluid in the right major fissure. Electronically Signed: Lázaro Archer MD at 14:11 EDT , Physical Exam Narrative GENERAL: cooperative HEENT: Atraumatic; normocephalic EYES; Anicteric, Normal Conjunctiva NECK; supple, normal thyroid, RESPIRATORY: Diminished to auscultation CARDIOVASCULAR: Regular S1 S2, GI: soft, normoactive bowel sounds, : No Renal angle tenderness; EXTREMITIES: An area of induration on the medial aspect of the right MUSCULOSKELETAL: no muscle wasting NEURO: Awake; no lateralizing signs. SKIN: Bruising involving the right buttock area PSYCH; Flat affect HEENT normocephalic, head/scalp atraumatic and moist oral mucous membranes Eyes PERRL, EOMs intact bilaterally and conjunctivae normal Neck supple, no JVD, thyroid normal and no carotid bruits General: trachea midline Resp normal respiratory effort, no retractions and no use of accessory muscles Resp Narrative: Decreased breath sounds are noted over the right lung field Auscultation: Negative for rales, rhonchi or wheezes Cardio regular rate, regular rhythm, S1 normal heart sound, S2 normal heart sound, no murmurs, no rub and no gallops Cardio Narrative: Mechanical heart sound is noted over the precordium GI normal to inspection, nondistended, normoactive bowel sounds, soft to palpation, non-tender and non-distended GI Narrative: Large right upper abdominal ventral hernia is noted to be present extending into the right lower chest wall area Extremity Extremity Narrative: There is mild generalized edema noted over the lower legs Skin Skin Narrative: There is an open area over the dorsal aspect of the right second toe, there is an opening that appears to extend to the joint space of the right second toe General Skin Exam: no breakdown Neuro CN's II-XII intact bilaterally, moves all extremities, no focal motor deficits and no sensory deficits noted Sensorium / Orientation: awake, alert, oriented to person and oriented to place Speech: speech normal Psych affect normal Psych Narrative: Patient has flat affect, he has cognitive impairment Assessment & Plan Assessment/Plan (1) Anemia: (2) Hyperbilirubinemia: PLAN: Plan Patient is a 72-year-old gentleman resident at an [facility] who was brought in with increasing confusion and hyperbilirubinemia patient was also found to be anemic with hemoglobin of 7. Was noticed to have a large bruising involving the right buttock and right upper leg area. 1. Acute on chronic anemia ? Suspected to be secondary to acute blood loss anemia given patient significant bruising involving the right upper leg and right buttock area. With patient being symptomatic patient was transfused with 1 unit PRBC consult was placed to vascular surgery plan is for patient to undergo angiogram. Case discussed with Dr. May plan is for patient to undergo angiogram on the morning of 12/16/2022 ? 12/15/2022 ordered CBC to assess patient anemia 2. Large right-sided recurrent pleural effusion ? Ultrasound-guided thoracocentesis ordered for therapeutic and diagnostic thoracocentesis 3. Hyperbilirubinemia ? Monitoring with daily LFTs 4..? Aortic valve disease ?Status post aortic valve replacement [facility] mechanical valve.? Patient INR is subtherapeutic apparently due to noncompliance.? Bridged with Lovenox with daily monitoring of INR ordered 5.? Acute on chronic congestive heart failure with reduced ejection fraction ?Echo obtained on 09/22/2021 demonstrated EF of 30% with moderate global hypokinesis.? Patient is on lisinopril as well as furosemide continued 6.? Coronary artery disease ?With previous CABG 7.? Peripheral arterial disease ?With history of femoropopliteal bypass 8.? Diabetes mellitus type 2 ?Did continue home regimen insulin Lantus and held patient metformin with Accu- Cheks before meals and at bedtime with sliding scale coverage 9.? Physical deconditioning - Requested for PT OT eval and director of social work to assist with discharge planning; 10. Hypokalemia ? Corrected per protocol repeat labs ordered for a.m. 11.? Open wound involving the right second toe ? Consult placed to podiatry 12 DVT prophylaxis ? Patient is on systemic anticoagulation Time spent in the patient's overall evaluation,decision-making process, review of diagnostic data, adjustment of management, med reconciliation, ordering of labs discussion with other providers, nursing nursing and ancillary staff involved in patient's care documentation, 35 Minutes Charges/Coding Visit Charges Inpatient E&M: 52614 Subs Hosp L2
[2022-12-15] MEDS: Ferrous Sulfate 325 MG Tablet PO (08:15)
[2022-12-15] MEDS: Potassium Chloride Oral Tablet 20 MEQ PO ×2 (08:15→17:22)
[2022-12-15 08:36] LABS: Absolute Lymphocyte Count 0.96 X10^3/uL (0.83-4.51); Absolute Neutrophil Count 3.3 X10^3/uL (2.0-7.7); Basophil# 0.03 X10^3/uL; Basophil% 0.6 % (0-1); Eosinophil# 0.15 X10^3/uL; Eosinophils% 2.9 % (0-5); Hematocrit 30.8 % (40-54); Hemoglobin 9.2 g/dL (13.0-16.5); Lymphocyte # 0.96 X10^3/ul (0.83-4.51); Lymphocyte % 18.6 % (19-41); Mean Corp Hgb Conc 29.9 g/dL (32-36); Mean Corpuscular Hgb 30.1 pg (27.0-32.0); Mean Corpuscular Volume 100.7 fL (80-94); Mean Platelet Vol. 10.2 fl (6.2-12.0); Monocyte# 0.65 X10^3/uL; Monocyte% 12.6 % (0-10); NRBC Flagged by Analyzer 0 % (0-5); Neutrophil # 3.33 X10^3/uL (2.7-7.7); Neutrophil % 64.7 % (47-70); POSITIVE MORPHOLOGY YES; Platelet Count 252 K/mm3 (150-450); RBC Distribution Width CV 25.1 % (11.6-14.6); RBC Distribution Width SD 91.1 fl (35.1-43.9); Red Blood Count 3.06 M/mm3 (4.6-6.2); White Blood Count 5.2 K/mm3 (4.4-11.0)
[2022-12-15 08:38] LABS: Differential Indicated SCAN CRITERIA MET
[2022-12-15 09:00] LABS: Anisocytosis 1+
[2022-12-15 09:01] LABS: AST(SGOT) 20 U/L (15-37); Alanine Aminotransfer ALT/SGPT 12 U/L (16-61); Albumin, Serum 2.7 g/dL (3.2-5.0); Alkaline Phosphatase 179 U/L (45-117); Anion Gap 6 (5-15); BUN 22 mg/dL (7-18); BUN/Creat Ratio 24.6 RATIO (10-20); Calcium,Total 8.7 mg/dL (8.5-10.1); Chloride 104 mmol/L (98-107); Creatinine, Serum 0.89 mg/dL (0.70-1.30); EST Glomerular Filtration Rate 89 mL/min (>60); Est Glom Filt Rate - Afr Amer 108 mL/min (>60); Estimated Creatinine Clearance 82.26 ml/min; Globulin 4.2 g/dL (2.2-4.2); Glucose 134 mg/dL (74-106); Magnesium 1.9 mg/dL (1.6-2.6); Phosphorus 2.9 mg/dL (2.5-4.9); Protein, Total 6.9 g/dL (6.4-8.2); Sodium Level 139 mmol/L (136-145)
[2022-12-15] MEDS: Insulin Glargine-YFGN 100 UNIT/ML Pen 15 UNIT SC (10:14)
[2022-12-15] MEDS: Menthol/Lanolin/Calamine/Znox 113 GM Tube 1 APPLIC TOPICAL ×2 (10:14→22:29)
[2022-12-15] MEDS: Metoprolol(XL)Succ 100 MG Tablet PO (10:15)
[2022-12-15] MEDS: Furosemide 40 MG/4 ML Vial IV ×2 (10:15→17:22)
[2022-12-15] MEDS: Lisinopril 5 MG Tablet PO (10:15)
[2022-12-15] MEDS: Enoxaparin 100 MG/ML Syringe SC (10:15)
[2022-12-15] MEDS: Nystatin Powder 15gm Bottle 1 APPLIC TOPICAL ×2 (10:15→22:29)
[2022-12-15] MEDS: 0.9% Saline Lock 10 ML Syringe IV ×2 (10:21→22:33)
[2022-12-15] MEDS: Insulin Lispro 100 UNIT/ML INSULN.PEN SC ×3 (11:51→22:29)
[2022-12-15 12:10] LABS: Bedside Glucose 183 mg/dL (74-106)
--- NOTE | 2022-12-15 14:46 | CASEMGMT ---
Discharge Planning Updates sent to [facility] via [facility]. Requested that pre-cert be started. Lizabeth Church
[2022-12-15 16:54] LABS: Bedside Glucose 175 mg/dL (74-106)
[2022-12-15] MEDS: Juven (unflavored) Packet 1 PACKET PO (17:05)
[2022-12-15] MEDS: Atorvastatin Calcium 40 MG Tablet PO (22:28)
[2022-12-16] VITALS (13 sets, daily range): BP systolic 95–139; BP diastolic 53–102; PULSE 98–115; RESP 14–25; TEMP 36.4–36.9; O2SAT 92–100; BMI 26.5
[2022-12-16 00:12] LABS: Bedside Glucose 192 mg/dL (74-106)
[2022-12-16 05:43] LABS: Absolute Lymphocyte Count 0.98 X10^3/uL (0.83-4.51); Basophil# 0.02 X10^3/uL; Basophil% 0.4 % (0-1); Eosinophil# 0.15 X10^3/uL; Eosinophils% 3.1 % (0-5); Hematocrit 26.8 % (40-54); Hemoglobin 8.2 g/dL (13.0-16.5); Lymphocyte # 0.98 X10^3/ul (0.83-4.51); Lymphocyte % 20.5 % (19-41); Mean Corp Hgb Conc 30.6 g/dL (32-36); Mean Corpuscular Hgb 30.1 pg (27.0-32.0); Mean Corpuscular Volume 98.5 fL (80-94); Mean Platelet Vol. 10.6 fl (6.2-12.0); Monocyte# 0.65 X10^3/uL; Monocyte% 13.6 % (0-10); NRBC Flagged by Analyzer 0 % (0-5); Neutrophil # 2.97 X10^3/uL (2.7-7.7); POSITIVE MORPHOLOGY YES; Platelet Count 232 K/mm3 (150-450); RBC Distribution Width CV 24.1 % (11.6-14.6); RBC Distribution Width SD 85.7 fl (35.1-43.9); Red Blood Count 2.72 M/mm3 (4.6-6.2); White Blood Count 4.8 K/mm3 (4.4-11.0)
[2022-12-16 05:49] LABS: Differential Indicated SCAN CRITERIA MET
[2022-12-16 06:03] LABS: Anion Gap 6 (5-15); BUN 25 mg/dL (7-18); BUN/Creat Ratio 35.2 RATIO (10-20); Calcium,Total 8.1 mg/dL (8.5-10.1); Chloride 103 mmol/L (98-107); Creatinine, Serum 0.71 mg/dL (0.70-1.30); EST Glomerular Filtration Rate 116 mL/min (>60); Est Glom Filt Rate - Afr Amer 141 mL/min (>60); Estimated Creatinine Clearance 73.21 ml/min; Glucose 130 mg/dL (74-106); Magnesium 1.8 mg/dL (1.6-2.6); Sodium Level 136 mmol/L (136-145)
[2022-12-16 06:14] LABS: Acanthocytes 1+; Anisocytosis 2+; Macrocytosis 1+; Microcytosis 1+
[2022-12-16 07:11] LABS: Bedside Glucose 123 mg/dL (74-106)
--- NOTE | 2022-12-16 07:41 | NURSING ---
pt to cardio services for procedure-off unit
--- NOTE | 2022-12-16 08:10 | NURSING ---
pt remains off unit
--- NOTE | 2022-12-16 10:03 | NURSING ---
pt remains off unit
--- NOTE | 2022-12-16 10:33 | NURSING ---
pt remains off unit
--- NOTE | 2022-12-16 11:08 | PCM.PN.HOSP ---
Reason for Visit Reason for Visit: Diagnoses Anemia, unspecified (12/11/22) Other disorders of bilirubin metabolism (12/11/22) Atherosclerosis of [place] arteries of other extremities with ulceration (12/11/22) Osteomyelitis, unspecified (12/11/22) Subjective Subjective Patient to undergo angiogram. Has also been seen by podiatry Dr. Yusuf Lozano with plans for patient to undergo right second toe amputation once his lower extremity vascular status is optimized. Objective Data Objective Data Vital Signs: Vital Signs Temp Pulse Resp BP Pulse Ox O2 Del Method O2 Flow Rate 97.9 F 113 H 20 H 109/65 97 Nasal Cannula 2 12/16/22 06:47 12/16/22 06:47 12/16/22 06:47 12/16/22 06:47 12/16/22 06:47 12/16/22 08:06 12/16/22 08:06 Oxygen Flow Rate (L/min) [3] 3 Oxygen Flow Rate (L/min) [2] 3 Oxygen Flow Rate (L/min) [1 ( 3 Initial Baseline)] Oxygen Flow Rate (L/min) 2 Oxygen Delivery Method [3] Nasal Cannula Oxygen Delivery Method [2] Room Air Oxygen Delivery Method [1 ( Nasal Cannula Initial Baseline)] Oxygen Delivery Method Nasal Cannula Weight: 85.9 kg Body Mass Index (BMI) 26.5 Intake & Output: Intake and Output for Last 24 Hours 12/14/22 12/15/22 12/16/22 23:59 23:59 23:59 Intake Total 770 / 770 1700 / 1700 Output Total 4120 / 5020 2350 / 3550 1999 Balance -3350 / -4250 -650 / -1850 -1999 Lab / Micro Data Result Diagrams: 12/16/22 05:28 12/16/22 05:28 Labs: Laboratory Results - last 24 hr 12/15/22 11:48: POC Glucose 183 H 12/15/22 16:36: POC Glucose 175 H 12/15/22 21:59: POC Glucose 192 H 12/16/22 05:28: WBC 4.8, RBC 2.72 L, Hgb 8.2 L, Hct 26.8 L, MCV 98.5 H, MCH 30.1, MCHC 30.6 L, RDW Std Deviation 85.7 H, RDW Coeff of Estrada 24.1 H, Plt Count 232, MPV 10.6, Immature Gran % (Auto) 0.400, Neut % (Auto) 62.0, Lymph % (Auto) 20.5, [place] % (Auto) 13.6 H, Eos % (Auto) 3.1, Baso % (Auto) 0.4, Absolute Neuts (auto) 3.0, Absolute Lymphs (auto) 0.98, Nucleated RBC % 0, Anisocytosis 2+, Microcytosis 1+, Macrocytosis 1+, Acanthocytes (Spur) 1+ 12/16/22 05:28: Sodium 136, Potassium 4.0, Chloride 103, Carbon Dioxide 27.0, Anion Gap 6, BUN 25 H, Creatinine 0.71, Estim Creat Clear Calc 73.21, Est GFR (MDRD) Af Amer 141, Est GFR (MDRD) Non-Af 116, BUN/Creatinine Ratio 35.2 H, Glucose 130 H, Calcium 8.1 L, Magnesium 1.8 12/16/22 06:49: POC Glucose 123 H Physical Exam Narrative GENERAL: cooperative HEENT: Atraumatic; normocephalic EYES; Anicteric, Normal Conjunctiva NECK; supple, normal thyroid, RESPIRATORY: Diminished to auscultation CARDIOVASCULAR: Regular S1 S2, GI: soft, normoactive bowel sounds, : No Renal angle tenderness; EXTREMITIES: An area of induration on the medial aspect of the right MUSCULOSKELETAL: no muscle wasting NEURO: Awake; no lateralizing signs. SKIN: Bruising involving the right buttock area PSYCH; Flat affect Assessment & Plan Assessment/Plan (1) Anemia: (2) Hyperbilirubinemia: PLAN: Plan Patient is a 72-year-old gentleman resident at an [facility]S [facility] 234 BEDS AT THE [facility] who was brought in with increasing confusion and hyperbilirubinemia patient was also found to be anemic with hemoglobin of 7. Was noticed to have a large bruising involving the right buttock and right upper leg area. 1. Acute on chronic anemia ? Suspected to be secondary to acute blood loss anemia given patient significant bruising involving the right upper leg and right buttock area. With patient being symptomatic patient was transfused with 1 unit PRBC consult was placed to vascular surgery plan is for patient to undergo angiogram. Case discussed with Dr. May plan is for patient to undergo angiogram on the morning of 12/16/2022 ? 12/15/2022 ordered CBC to assess patient anemia -12/16/2022 patient to undergo angiogram. 2. Large right-sided recurrent pleural effusion ? Ultrasound-guided thoracocentesis ordered for therapeutic and diagnostic thoracocentesis 3. Hyperbilirubinemia ? Monitoring with daily LFTs 4..? Aortic valve disease ?Status post aortic valve replacement [facility] mechanical valve.? Patient INR is subtherapeutic apparently due to noncompliance.? Bridged with Lovenox with daily monitoring of INR ordered 5.? Acute on chronic congestive heart failure with reduced ejection fraction ?Echo obtained on 09/22/2021 demonstrated EF of 30% with moderate global hypokinesis.? Patient is on lisinopril as well as furosemide continued 6.? Coronary artery disease ?With previous CABG 7.? Peripheral arterial disease ?With history of femoropopliteal bypass 8.? Diabetes mellitus type 2 ?Did continue home regimen insulin Lantus and held patient metformin with Accu-Cheks before meals and at bedtime with sliding scale coverage 9.? Physical deconditioning - Requested for PT OT eval and neonatal social worker to assist with discharge planning; 10. Hypokalemia ? Corrected per protocol repeat labs ordered for a.m. 11.? Open wound involving the right second toe ? Consult placed to podiatry -12/16/2022; seen by podiatry Dr. Yusuf Lozano with plans for patient to undergo right second toe amputation once his lower extremity vascular status is optimized. 12 DVT prophylaxis ? Patient is on systemic anticoagulation Time spent in the patient's overall evaluation,decision-making process, review of diagnostic data, adjustment of management, med reconciliation, ordering of labs discussion with other providers, nursing nursing and ancillary staff involved in patient's care documentation, 35 Minutes Charges/Coding Visit Charges Inpatient E&M: 20797 Subs Hosp L2
--- NOTE | 2022-12-16 11:13 | NURSING ---
pt remains off unit
[2022-12-16] MEDS: HEPARIN/D5w 25,000 UNITS 25,000 UNITS/250 ML IV.SOLN. 5 UNITS CONT INF (11:39)
[2022-12-16 12:13] LABS: ACT Activated Clotting Time 209 sec (74-137)
[2022-12-16 12:14] LABS: ACT Activated Clotting Time 203 sec (74-137)
[2022-12-16] MEDS: oxyCODONE 5 MG Tablet PO (14:08)
[2022-12-16] MEDS: Acetaminophen 325 MG Tablet 650 MG PO ×2 (14:08→21:03)
--- NOTE | 2022-12-16 14:22 | PCM.OPRPT ---
Report of Operation Date of Procedure: 12/16/22 Pre-Operative Diagnosis: atherosclerosis with ulceration right lower extremity Post-Operative Diagnosis: same Surgery/Procedure Performed:: aortogram, RLE runoff IVUS right common femoral, sfa, popliteal, TP trunk, peroneal arteries right sfa/popliteal angioplasty/stent right TP trunk/peroneal artery angioplasty Surgeon: Kendrick May Type of Anesthesia: Local and Sedation,Conscious Estimated Blood Loss (mL): 15 Description of Procedure: HPI: Patient is a 72-year-old male with atherosclerosis and dry gangrene of the right lower extremity. He had previous imaging which suggest inadequate perfusion to heal and a planned total amputation so was taken now for angiogram with possible invention. Description of procedure: Upon obtaining form consent and verification correct patient was procedure site patient taken the [employer] where he was positioned prepped and draped in usual sterile fashion. Time was then performed conscious sedation administered with Versed and fentanyl. Skin overlying the left common femoral artery was anesthetized with 1% lidocaine and the vessel accessed under ultrasound guidance with a micropuncture needle and wire in retrograde fashion. This was then exchanged for micropuncture sheath through which hand-injection femoral angiogram was performed which confirmed satisfactory placement with no extravasation or dissection. Through the micropuncture sheath Bentson wire advanced and abdominal aorta and the micropuncture sheath exchanged out for a short 5 [place] sheath. Through the 5 [place] sheath and Omni Flush catheter was advanced abdominal aorta and a digital subtraction aortogram pelvic angiogram was performed. We then navigated to the contralateral iliac system advancing a catheter in the distal external iliac artery. From this position sequential right lower extremity subtraction angiography was performed. This confirmed moderate and severe diffuse atherosclerosis of the entirety of the SFA popliteal as well as tibial level disease which was poorly visualized. We then navigated into the superficial femoral artery and ultimately the popliteal artery with a glide advantage wire and advanced a quick cross catheter into the below the knee popliteal artery. This position further subtraction angiography of the tibial vessels were performed which confirmed anterior tibial highly diseased vessel with occlusion shortly beyond its origin with no reconstitution until the dorsalis pedis. Posterior tibial artery was occluded at its origin and never reconstituted. Peroneal artery was dominant runoff to the foot large caliber vessel with some moderate to severe stenosis of the proximal 5 cm but otherwise healthy vessel which fills the dorsalis pedis in the foot. Is felt that this was amenable to endovascular therapy so the 5 [place] sheath was then exchanged out for a 6 [place] Ansell sheath which was advanced into the contralateral common femoral artery. The patient was then heparinized allowed to return for 3 minutes and serial ACT is used to redose heparin. The quick cross catheter was then readvanced over the glide advantage wire and the glide advantage wire exchanged out for an 014 command wire which was advanced in position into the peroneal artery. The catheters and withdrawn and 6 [place] intravascular ultrasound probe was then advanced over the wire into the peroneal artery and recorded pullback of the peroneal, tibioperoneal trunk, popliteal, SFA, common femoral arteries was performed. This confirmed extensive moderate and severe disease more severe than suggested by the angiography and also better visualized disease within the proximal peroneal artery. [place] that intervention of multiple levels was warranted so we began with angio sculpt scoring balloons 5 mm for the below the knee popliteal inflated to nominal over multiple segments up to the P2 segment. This point on 6 mm angio sculpt angioplasty was performed of the remainder of the popliteal artery as well as the proximal and distal SFA. Repeat angiography confirmed satisfactory response to the angioplasty with 1 small focal area of dissection in the mid SFA but otherwise no significant residual stenosis or dissection. Next to the treated segment was angioplastied with paclitaxel coated balloon angioplasty 5 mm for the P3 segment and 6 mm for the remainder of the popliteal and the SFA. Completion angiography confirmed continued short segment dissection in the SFA which we plan to place a tack to resolve. It did however also reveal poor opacification of the peroneal artery so the quick cross catheter was readvanced over the wire and imaging injected through the catheter in the popliteal artery was performed which revealed more significant proximal peroneal stenosis that initially suggested due to changes in the obliquity of the C arm. There also was a fair amount of spasm so this vessel was then treated with 4 mm and 3 mm angioplasty and injection of verapamil and nitro. Repeat angiography revealed resolution of the peroneal artery stenosis and spasm and brisk contrast transit. We then exchanged our 014 wire for an 035 wire and placed a total of 3 tacks in the SFA at the area of dissection. This was then postdilated with a 6 mm angioplasty balloon and completion angiography of satisfactory resolution of the dissection with brisk contrast transit. The long 6 [place] sheath and then exchanged for short 6 [place] sheath and a 6 [place] minx deployed followed by 2 minutes of manual pressure. At the inclusion the patient was taken to the recovery area and then to the PCU for bedrest before returning to medical floor.
--- NOTE | 2022-12-16 15:52 | NURSING ---
pt remains off unit
[2022-12-16 16:55] LABS: Bedside Glucose 144 mg/dL (74-106)
--- NOTE | 2022-12-16 17:40 | NURSING ---
Report called to Jania Dallas RN. Pt angiogram recovery completed and pt to return to [id number] per Dr. May's orders.
[2022-12-16] MEDS: HEPARIN/D5w 25,000 UNITS 25,000 UNITS/250 ML IV.SOLN. 10 UNITS CONT INF (17:58)
--- NOTE | 2022-12-16 17:58 | NURSING ---
talked with Misty PCU charge nurse and Kayce PCU primary RN aware pt will return on heparin gtt that is titrated and she will order PTT.
[2022-12-16] MEDS: Metoprolol(XL)Succ 100 MG Tablet PO (18:34)
[2022-12-16] MEDS: Potassium Chloride Oral Tablet 20 MEQ PO (18:36)
[2022-12-16] MEDS: Furosemide 40 MG/4 ML Vial IV (18:37)
--- NOTE | 2022-12-16 18:49 | NURSING ---
lungs clear but dim in bases-a&o x3, left groin drsg d&i and soft around area, pt c/o low back pain from bedpt not due for any prn's except morphine and pt declines that-primo fit is on-heparin gtt is @ 10 with current bag from PCU
[2022-12-16] MEDS: Ipratropium/Albuterol Sulfate 3 ML AMPUL.NEB INHALATION (19:19)
[2022-12-16] MEDS: Nystatin Powder 15gm Bottle 1 APPLIC TOPICAL (23:06)
[2022-12-16] MEDS: Atorvastatin Calcium 40 MG Tablet PO (23:12)
[2022-12-16 23:33] LABS: Bedside Glucose 122 mg/dL (74-106)
[2022-12-17] VITALS (14 sets, daily range): BP systolic 98–130; BP diastolic 61–78; PULSE 103–114; RESP 16–20; TEMP 36.1–36.9; O2SAT 93–100; BMI 26.5; BMI 27.8
--- NOTE | 2022-12-17 | BON_PTH ---
PATIENT: RAPHAEL HADDAD LOC: [facility] U#:[id number] AGE/SX: 72/M [place] [facility] [place]: Dr. Fernandez Rosario MD : 1950 BED: 1 DIS: 12/20/2022 SPEC #: [id number] RECD: 12/17/22 11:57 STATUS: RICH ORTIZ #: [id number] MATIAS: 12/17/22 00:[address]: Yusuf Lozano DEPT: SURGICAL PATHOLOGY RECD BY: Jesús Villegas ENTERED: 12/17/22 11:58 SP TYPE: Bone OTHR DR: MD Dr. Kendrick Kolb MD Dr. Jeffrey Wunning, DPM DO Dr. Feliciano Adame MD Tissues: A - Bone of foot, NOS B - Bone of foot, NOS Procedures: Decalcification bone/plaque Surgery Specimen Level III Surgery Specimen Level IV Comments: @ Ordering doctor for DEC edited from to DR.JWUNNI Chuy CHAWLA at 12/17/22 1515 @ Ordering doctor for SUIII edited from to DR.JWUNNI Chuy CHAWLA at 12/17/22 1515 @ Submitting doctor edited from to DR.JWUNNI Chuy CHAWLA at 12/17/22 1515 HEADER OPERATION: Amputation second toe PRE-OP DIAGNOSIS: Osteomyelitis TISSUE SUBMITTED: A ? Second toe, B ? Clearance fragment second toe MICROSCOPIC DIAGNOSIS A. Second toe, amputation: Focal ulceration and associated acute inflammation. Underlying bone with reactive changes, negative for acute osteomyelitis. B. Clearance fragment second toe: Piece of bone with attached soft tissue with reactive changes, negative for acute osteomyelitis. SJ:valencia 12/22/2022 MICROSCOPIC DESCRIPTION Slides are reviewed. GROSS DESCRIPTION A - Received in fixative is one container labeled with the patient's name and designated second toe. The specimen consists of a portion of toe measuring 5.5 x 2.0 x 2.0 cm. The nail is present and appears unremarkable. A focal area of ulceration is noted on the dorsal surface of toe measuring 1.7 x 0.7 cm. P[employer]ding [employer] Operator sections are submitted in three cassettes as follows: 1 - ulcerated area, 2 - elongated section of bone after decalcification, 3 - resection margin. B - Received in fixative is one container labeled with the patient's name and designated clearance fragment second toe. The specimen consists of a piece of bone with attached soft tissue measuring 2.2 x 1.0 x 0.3 cm. The entire specimen is submitted in one cassette after decalcification. / LEVON:valencia 12/17/2022 TC:2 CPT: 62574, 73220, 24830 x2
[2022-12-17] MEDS: oxyCODONE 5 MG Tablet PO (00:07)
[2022-12-17 00:27] LABS: Partial Thromboplast Time 53.6 Seconds (24.1-36.2)
[2022-12-17 01:45] LABS: Bedside Glucose 139 mg/dL (74-106)
[2022-12-17] MEDS: 0.9% Saline Lock 10 ML Syringe IV ×4 (04:12→20:57)
[2022-12-17 04:36] LABS: Bedside Glucose 133 mg/dL (74-106)
--- NOTE | 2022-12-17 06:00 | EKG12_ITS ---
Test Reason : PRE OP Blood Pressure : / mmHG Vent. Rate : 113 BPM Atrial Rate : 113 BPM P-R Int : 174 ms QRS Dur : 098 ms QT Int : 342 ms P-R-T Axes : 000 058 093 degrees QTc Int : 469 ms Sinus tachycardia Otherwise normal ECG When compared with ECG of 10-NOV-2022 05:43, Vent. rate has increased BY 46 BPM Confirmed by EVARISTO CHAPA, JORDAN ([id number]), editor trade journal STANISLAV OVIEDO ([id number]) on 12/21/2022 9:01:47 AM Referred By: JAISON Confirmed By:JORDAN LOERA MD
[2022-12-17] MEDS: Ipratropium/Albuterol Sulfate 3 ML AMPUL.NEB INHALATION ×3 (07:11→18:49)
[2022-12-17 07:15] LABS: Bedside Glucose 139 mg/dL (74-106)
[2022-12-17 07:20] LABS: Absolute Lymphocyte Count 0.85 X10^3/uL (0.83-4.51); Absolute Neutrophil Count 3.7 X10^3/uL (2.0-7.7); Basophil# 0.03 X10^3/uL; Basophil% 0.6 % (0-1); Eosinophil# 0.13 X10^3/uL; Eosinophils% 2.4 % (0-5); Hematocrit 29.3 % (40-54); Hemoglobin 8.7 g/dL (13.0-16.5); Lymphocyte # 0.85 X10^3/ul (0.83-4.51); Mean Corp Hgb Conc 29.7 g/dL (32-36); Mean Corpuscular Hgb 29.5 pg (27.0-32.0); Mean Corpuscular Volume 99.3 fL (80-94); Mean Platelet Vol. 10.8 fl (6.2-12.0); Monocyte% 11.3 % (0-10); NRBC Flagged by Analyzer 0 % (0-5); Neutrophil # 3.65 X10^3/uL (2.7-7.7); Neutrophil % 68.8 % (47-70); POSITIVE MORPHOLOGY YES; Platelet Count 238 K/mm3 (150-450); RBC Distribution Width CV 23.6 % (11.6-14.6); RBC Distribution Width SD 85.7 fl (35.1-43.9); Red Blood Count 2.95 M/mm3 (4.6-6.2); White Blood Count 5.3 K/mm3 (4.4-11.0)
[2022-12-17 07:24] LABS: Differential Indicated SCAN CRITERIA MET
--- NOTE | 2022-12-17 07:25 | PN.HOSP_ITS ---
Reason for Visit Reason for Visit: Diagnoses Anemia, unspecified (12/11/22) Other disorders of bilirubin metabolism (12/11/22) Atherosclerosis of [place] arteries of other extremities with ulceration (12/11/22) Osteomyelitis, unspecified (12/11/22) Subjective Subjective Patient underwent aortogram, RLE runoff IVUS right common femoral, sfa, popliteal, TP trunk, peroneal arteries? right sfa/popliteal angioplasty/stent right TP trunk/peroneal artery angioplasty Dr. May on 12/16/2022; scheduled to undergo right second toe amputation by podiatry Dr. Yusuf Lozano Objective Data Objective Data Vital Signs: Vital Signs Temp Pulse Resp BP Pulse Ox O2 Del Method O2 Flow Rate 98.4 F 112 H 20 H 124/72 H 95 Room Air 2 12/17/22 04:07 12/17/22 07:12 12/17/22 07:12 12/17/22 04:07 12/17/22 07:12 12/17/22 07:12 12/16/22 08:06 Oxygen Flow Rate (L/min) [3] 3 Oxygen Flow Rate (L/min) [2] 3 Oxygen Flow Rate (L/min) [1 ( 3 Initial Baseline)] Oxygen Flow Rate (L/min) 2 Oxygen Delivery Method [3] Nasal Cannula Oxygen Delivery Method [2] Room Air Oxygen Delivery Method [1 ( Nasal Cannula Initial Baseline)] Oxygen Delivery Method Room Air Weight: 85.9 kg Body Mass Index (BMI) 26.5 Intake & Output: Intake and Output for Last 24 Hours 12/15/22 12/16/22 12/17/22 23:59 23:59 23:59 Intake Total 1700 / 1700 351.67 / 351.67 73.33 / 73.33 Output Total 2350 / 3550 2400 / 3250 850 / 850 Balance -650 / -1850 -2048.33 / -2898.33 -776.67 / -776.67 Lab / Micro Data Result Diagrams: 12/17/22 07:06 12/17/22 07:06 Labs: Laboratory Results - last 24 hr 12/16/22 09:25: Activated Clotting Time 209 H 12/16/22 10:05: Activated Clotting Time 203 H 12/16/22 16:36: POC Glucose 144 H 12/16/22 22:48: POC Glucose 122 H 12/16/22 23:57: APTT 53.6 H 12/17/22 01:25: POC Glucose 139 H 12/17/22 03:56: POC Glucose 133 H 12/17/22 06:55: POC Glucose 139 H 12/17/22 07:06: WBC 5.3, RBC 2.95 L, Hgb 8.7 L, Hct 29.3 L, MCV 99.3 H, MCH 29.5, MCHC 29.7 L, RDW Std Deviation 85.7 H, RDW Coeff of [place]str[place] 23.6 H, Plt Count 238, MPV 10.8, Immature Gran % (Auto) 0.900, Neut % (Auto) 68.8, Lymph % (Auto) 16.0 L, [place] % (Auto) 11.3 H, Eos % (Auto) 2.4, Baso % (Auto) 0.6, Absolute Neuts (auto) 3.7, Absolute Lymphs (auto) 0.85, Nucleated RBC % 0 Physical Exam Narrative GENERAL: cooperative HEENT: Atraumatic; normocephalic EYES; Anicteric, Normal Conjunctiva NECK; supple, normal thyroid, RESPIRATORY: Diminished to auscultation CARDIOVASCULAR: Regular S1 S2, GI: soft, normoactive bowel sounds, : No Renal angle tenderness; EXTREMITIES: An area of induration on the medial aspect of the right MUSCULOSKELETAL: no muscle wasting NEURO: Awake; no lateralizing signs. SKIN: Bruising involving the right buttock area PSYCH; Flat affect Assessment & Plan Assessment/Plan (1) Anemia: (2) Hyperbilirubinemia: PLAN: Plan Patient is a 72-year-old gentleman resident at an [facility] who was brought in with increasing confusion and hyperbilirubinemia patient was also found to be anemic with hemoglobin of 7. Was noticed to have a large bruising involving the right buttock and right upper leg area. 1. Acute on chronic anemia ? Suspected to be secondary to acute blood loss anemia given patient significant bruising involving the right upper leg and right buttock area. With patient being symptomatic patient was transfused with 1 unit PRBC consult was placed to vascular surgery plan is for patient to undergo angiogram. Case discussed with Dr. May plan is for patient to undergo angiogram on the morning of 12/16/2022 ? 12/15/2022 ordered CBC to assess patient anemia -12/16/2022 patient to undergo angiogram. 2. Peripheral arterial disease ?Patient underwent aortogram, RLE runoff IVUS right common femoral, sfa, popliteal, TP trunk, peroneal arteries? right sfa/popliteal angioplasty/stent right TP trunk/peroneal artery angioplasty Dr. May on 12/16/2022; scheduled to undergo right toe amputation by podiatry Dr. Yusuf Lozano 3. Open wound involving the right second toe ? Consult placed to podiatry -12/16/2022; seen by podiatry Dr. Yusuf Lozano with plans for patient to undergo right second toe amputation once his lower extremity vascular status is optimized. ? 12/17/2022 patient scheduled to undergo amputation of the second right 4..? Aortic valve disease ?Status post aortic valve replacement [facility] mechanical valve.? Patient INR is subtherapeutic apparently due to noncompliance.? Bridged with Lovenox with daily monitoring of INR ordered 5.? Acute on chronic congestive heart failure with reduced ejection fraction ?Echo obtained on 09/22/2021 demonstrated EF of 30% with moderate global hypokinesis.? Patient is on lisinopril as well as furosemide continued 6.? Coronary artery disease ?With previous CABG 7.? Peripheral arterial disease ?With history of femoropopliteal bypass 8.? Diabetes mellitus type 2 ?Did continue home regimen insulin Lantus and held patient metformin with Accu- Cheks before meals and at bedtime with sliding scale coverage 9.? Physical deconditioning - Requested for PT OT eval and licensed clinical social worker to assist with discharge planni ng; 10. Hypokalemia ? Corrected per protocol repeat labs ordered for a.m. 11.?Hyperbilirubinemia ? Monitoring with daily LFTs 12. Large right-sided recurrent pleural effusion ? patient underwent ultrasound-guided thoracocentesis on 12/14/2019 with 187 0 mL of garry-colored fluid drained 13. DVT prophylaxis ? Patient is on systemic anticoagulation Time spent in the patient's overall evaluation,decision-making process, review of diagnostic data, adjustment of management, med reconciliation, ordering of labs discussion with other providers, nursing nursing and ancillary staff involved in patient's care documentation, 35 Minutes Charges/Coding Visit Charges Inpatient E&M: 90388 Subs Hosp L2
[2022-12-17 07:42] LABS: International Normalized Ratio 1.3; Prothrombin Time (Protime)PT. 15.9 SECONDS (11.7-14.9)
[2022-12-17 07:44] LABS: Anion Gap 6 (5-15); BUN 19 mg/dL (7-18); BUN/Creat Ratio 29.2 RATIO (10-20); Calcium,Total 8.4 mg/dL (8.5-10.1); Chloride 104 mmol/L (98-107); Creatinine, Serum 0.65 mg/dL (0.70-1.30); EST Glomerular Filtration Rate 129 mL/min (>60); Est Glom Filt Rate - Afr Amer 156 mL/min (>60); Estimated Creatinine Clearance 70.97 ml/min; Glucose 152 mg/dL (74-106); Potassium 4.2 mmol/L (3.5-5.1); Sodium Level 137 mmol/L (136-145)
[2022-12-17 07:45] LABS: Anisocytosis 2+; Differential Comment SCANNED; Ovalocyte RARE
[2022-12-17 07:46] LABS: Macrocytosis 1+; Microcytosis 1+; Polychromasia RARE
[2022-12-17] MEDS: Lactated Ringers 1,000 ML 15 ML IV (08:25)
--- NOTE | 2022-12-17 08:48 | CASEMGMT ---
Discharge Planning Updates sent to [place] via [facility]. Lizabeth Church
[2022-12-17] MEDS: Bupivacaine Mpf 0.5% 30 ML VIAL (09:14)
[2022-12-17 09:23] LABS: Hemoglobin A1c 5.7 % (3.8-5.6)
--- NOTE | 2022-12-17 09:47 | OP.PCM_ITS ---
Report of Operation Date of Procedure: 12/17/22 Pre-Operative Diagnosis: Osteomyelitis right 2nd toe Severe hammer toe, right 2nd toe Post-Operative Diagnosis: Same Surgery/Procedure Performed:: Right 2nd toe amputation Surgeon: Yusuf Lozano sr. strategic sourcing manager: Victor Manuel Type of Anesthesia: Local and MAC Specimen's removed: 1. Amputated right 2nd toe sent to pathology 2. Bone culture right 2nd toe sent to microbiology 3. Clearance fragment base of proximal phalanx right 2nd toe sent to pathology and microbiology Estimated Blood Loss (mL): 2mL Description of Procedure: Indications: The patient is a 72 year old gentleman with peripheral neuropathy, diabetes and peripheral vascular disease who has a chronic ulceration with nonviable bone to the right 2nd toe. Patient underwent right lower extremity revascularization yesterday by Dr. May. I spoke with Dr. May and ok to proceed with right 2nd toe amputation from vascular standpoint. Also ok to proceed per hospitalist Dr. Gutierrez. This was discussed with patient in detail, reviewed the possible benefits vs risks. He were advised the risks include, but are not limited to pain, further infections, need for further surgery, nonhealing, delay healing, scarring, poor cosmetic result, numbness, weakness, loss of function, complex regional pain syndrome, blood clots, loss of limb, loss of life. Patient expressed understanding and agreement, and able to repeat back, all questions were answered. The consent form was reviewed with him, and it was freely signed. No guaranties were given nor implied. No warranties were given. Operative Procedure:? The patient was brought into the operating room, and was place on the operating room table in the supine position. He was carefully secured to the operating room table with a safely belt around his waist. A time out was performed, the patient was properly identified and the surgical plan was confirmed. A well padded pneumatic tourniquet was placed around the right ankle but was not inflated. The patient received anesthesia per the anesthesia team, and a total of 10mL of 0.5% Marcaine plain was given as a right foot 2nd ray block after the skin was cleansed with 70% isopropyl alcohol. The right foot was scrubbed, prepped and draped in the usual aseptic fashion. Further attention was directed to the right foot. There was again noted to be a deep ulceration to the dorsal right 2nd toe down to bone, with head of proximal phalanx sticking out of the wound and the bone was necrotic and nonviable. Using a 15 blade, an incision was made around the 2nd toe at the level of the 2nd metatarsal phalangeal joint, and the 2nd toe was resected at this level. The head of the base of the 2nd toe proximal phalanx and 2nd metatarsal were noted to be white, hard and healthy and viable.?The remaining tissue appeared healthy and viable. The site was flushed with copious amounts of normal saline solution. A small sample of bone for a clearance fragment/bone culture was obtained from the base of the 2nd toe proximal phalanx and sent to microbiology and pathology. The amputated 2nd toe was sent to pathology for further evaluation as well, along with a culture of the necrotic bone from head of the proximal phalanx of the 2nd toe sent to microbiology for further evaluation. The site was again flushed out with copious amounts of normal saline solution. All remaining tissues appeared to be healthy and viable. The skin was reapproximated using 3-0 Prolene. There was normal temperature to the foot, and CFT < 2 seconds to all remaining toes. However it was noted there was less bleeding than normal consistent with peripheral vascular disease. A dressing was applied which consisted of 4x4 gauze and kerlix. 2g of IV ancef was given at end of the procedure for antibiotic prophylaxis. Patient tolerated the above procedure well with no complications. He was transported from the operating room to the recovery room in good condition. Post operative orders placed. Post operating instructions were reviewed with patient. No weightbearing to the foot. Patient will be followed as an inpatient. Post operative right foot xrays obtained in the recovery room which confirmed 2nd toe amputation, no evidence of complication or acute findings otherwise. Grafts/Implants Used: None Complications None
[2022-12-17] MEDS: Cefazolin 2 GM in 0.9% Normal Saline 100 ML IV (10:00)
--- NOTE | 2022-12-17 10:18 | CASEMGMT ---
Social Work Pt here from [place], having surgery today so will be here through the weekend. SW to follow up Tuesday. DARIO Heredia
--- NOTE | 2022-12-17 10:40 | RAD_ITS ---
INDICATION: post op EXAMINATION/TECHNIQUE: X-RAY - RIGHT XR Foot Min 3 Views 3 VIEWS COMPARISON: 10/19/2022 FINDINGS: SOFT TISSUES: No soft tissue swelling or gas. No radiopaque foreign body. BONES/JOINTS: No acute fracture. Interval resection of the second digit at the second MTP joint. Remaining joint spaces anatomically aligned. No sclerotic or destructive changes observed. RAD/Foot min 3 Views IMPRESSION: Status postsurgical amputation second digit. Electronically Signed: Sage Burrell MD at 18:26 EDT ,
[2022-12-17] MEDS: Furosemide 40 MG/4 ML Vial IV ×2 (11:20→17:34)
[2022-12-17] MEDS: Clopidogrel Bisulfate 75 MG Tablet PO (11:20)
[2022-12-17] MEDS: Nystatin Powder 15gm Bottle 1 APPLIC TOPICAL ×2 (11:20→20:59)
[2022-12-17] MEDS: Metoprolol(XL)Succ 100 MG Tablet PO (11:20)
[2022-12-17] MEDS: Lisinopril 5 MG Tablet PO (11:20)
[2022-12-17] MEDS: Menthol/Lanolin/Calamine/Znox 113 GM Tube 1 APPLIC TOPICAL ×2 (11:20→20:59)
[2022-12-17] MEDS: Acetaminophen 325 MG Tablet 650 MG PO ×2 (12:24→20:56)
[2022-12-17] MEDS: Heparin Injection (Vial) 5,000 UNIT/ML VIAL 5000 UNIT SC (13:51)
[2022-12-17] MEDS: Insulin Lispro 100 UNIT/ML INSULN.PEN SC ×2 (16:23→20:57)
[2022-12-17] MEDS: Juven (unflavored) Packet 1 PACKET PO (16:23)
[2022-12-17] MEDS: Potassium Chloride Oral Tablet 20 MEQ PO (16:23)
[2022-12-17 17:05] LABS: Bedside Glucose 173 mg/dL (74-106)
--- NOTE | 2022-12-17 19:26 | PCM.HOSP.N ---
Hospitalist Note Notified by Dr. Cotter, who spoke with Dr. May. Dr. May is ok with resuming anticoagulation. Pt has a mechanical AV. Start therapeutic enoxaparin and warfarin. DC heparin. Follow INR.
[2022-12-17] MEDS: Atorvastatin Calcium 40 MG Tablet PO (20:57)
[2022-12-17] MEDS: Enoxaparin 100 MG/ML Syringe 90 MG SC (20:57)
[2022-12-17 21:10] LABS: Bedside Glucose 201 mg/dL (74-106)
[2022-12-18] VITALS (9 sets, daily range): BP systolic 111–130; BP diastolic 66–76; PULSE 89–112; RESP 16–24; TEMP 36.6–36.7; O2SAT 94–99; BMI 27.9
[2022-12-18] MEDS: Acetaminophen 325 MG Tablet 650 MG PO ×2 (04:59→13:33)
[2022-12-18 06:24] LABS: Bedside Glucose 139 mg/dL (74-106)
[2022-12-18] MEDS: Ipratropium/Albuterol Sulfate 3 ML AMPUL.NEB INHALATION ×3 (06:56→19:48)
--- NOTE | 2022-12-18 07:32 | PN.HOSP_ITS ---
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 Pain is tolerable. Objective Data Objective Data Vital Signs: Vital Signs Temp Pulse Resp BP Pulse Ox O2 Del Method O2 Flow Rate 98.1 F 112 H 24 H 112/66 94 Room Air 2 12/18/22 04:52 12/18/22 06:56 12/18/22 06:56 12/18/22 04:52 12/18/22 06:56 12/18/22 06:56 12/17/22 11:50 Oxygen Flow Rate (L/min) [3] 3 Oxygen Flow Rate (L/min) [2] 3 Oxygen Flow Rate (L/min) [1 ( 3 Initial Baseline)] Oxygen Flow Rate (L/min) 2 Oxygen Delivery Method [3] Nasal Cannula Oxygen Delivery Method [2] Room Air Oxygen Delivery Method [1 ( Nasal Cannula Initial Baseline)] Oxygen Delivery Method Room Air Weight: 90.5 kg Body Mass Index (BMI) 27.9 Intake & Output: Intake and Output for Last 24 Hours 12/16/22 12/17/22 12/18/22 23:59 23:59 23:59 Intake Total 351.67 / 351.67 327.11 / 327.11 Output Total 2400 / 3250 2250 / 3050 1200 / 1200 Balance -2048.33 / -2898.33 -1922.89 / -2722.89 -1200 / -1200 Lab / Micro Data Result Diagrams: 12/18/22 07:37 12/18/22 07:37 Labs: Laboratory Results - last 24 hr 12/17/22 07:06: Differential Comment SCANNED, Polychromasia RARE, Anisocytosis 2+, Microcytosis 1+, Macrocytosis 1+, Ovalocytes RARE 12/17/22 07:06: Sodium 137, Potassium 4.2, Chloride 104, Carbon Dioxide 27.0, Anion Gap 6, BUN 19 H, Creatinine 0.65 L, Estim Creat Clear Calc 70.97, Est GFR (MDRD) Af Amer 156, Est GFR (MDRD) Non-Af 129, BUN/Creatinine Ratio 29.2 H, Glucose 152 H, Calcium 8.4 L 12/17/22 07:06: Hemoglobin A1c 5.7 H 12/17/22 07:06: PT 15.9 H, INR 1.3, APTT 60.0 H 12/17/22 16:22: POC Glucose 173 H 12/17/22 20:41: POC Glucose 201 H 12/18/22 06:05: POC Glucose 139 H Micro: Microbiology 12/17/22 10:13 Tissue - Clearance Fragment Gram Stain - Final 12/17/22 10:11 Bone - 2nd Toe Gram Stain - Final Radiography Diagnostic Testing: Radiology Impression Foot X-Ray 12/17/22 10:40 IMPRESSION: Status postsurgical amputation second digit. Electronically Signed: Sage Burrell MD at 18:26 EDT , Physical Exam Narrative GENERAL: cooperative HEENT: Atraumatic; normocephalic EYES; Anicteric, Normal Conjunctiva NECK; supple, normal thyroid, RESPIRATORY: Diminished to auscultation CARDIOVASCULAR: Regular S1 S2, GI: soft, normoactive bowel sounds, : No Renal angle tenderness; EXTREMITIES: An area of induration on the medial aspect of the right MUSCULOSKELETAL: no muscle wasting NEURO: Awake; no lateralizing signs. SKIN: Bruising involving the right buttock area PSYCH; Flat affect Assessment & Plan Assessment/Plan (1) Anemia: (2) Hyperbilirubinemia: PLAN: Plan Patient is a 72-year-old gentleman [facility] who was brought in with increasing confusion and hyperbilirubinemia patient was also found to be anemic with hemoglobin of 7. Was noticed to have a large bruising involving the right buttock and right upper leg area. 1. Acute on chronic anemia ? Suspected to be secondary to acute blood loss anemia given patient significant bruising involving the right upper leg and right buttock area. With patient being symptomatic patient was transfused with 1 unit PRBC consult was placed to vascular surgery plan is for patient to undergo angiogram. Case discussed with Dr. May plan is for patient to undergo angiogram on the morning of 12/16/2022 ? 12/15/2022 ordered CBC to assess patient anemia -12/16/2022 patient to undergo angiogram. 2. Peripheral arterial disease ?Patient underwent aortogram, RLE runoff IVUS right common femoral, sfa, popliteal, TP trunk, peroneal arteries? right sfa/popliteal angioplasty/stent right TP trunk/peroneal artery angioplasty Dr. May on 12/16/2022; scheduled to undergo right toe amputation by podiatry Dr. Yusuf Lozano 3. Open wound involving the right second toe ? Consult placed to podiatry -12/16/2022; seen by podiatry Dr. Yusuf Lozano with plans for patient to undergo right second toe amputation once his lower extremity vascular status is optimized. ? 12/17/2022 patient scheduled to undergo amputation of the second right -12/18/2022; Patient underwent right 2nd toe amputation on 12/17/2022. Pain is tolerable. 4..? Aortic valve disease ?Status post aortic valve replacement [facility]'s mechanical valve.? Patient INR is subtherapeutic apparently due to noncompliance.? Bridged with Lovenox with daily monitoring of INR ordered 5.? Acute on chronic congestive heart failure with reduced ejection fraction ?Echo obtained on 09/22/2021 demonstrated EF of 30% with moderate global hypokinesis.? Patient is on lisinopril as well as furosemide continued 6.? Coronary artery disease ?With previous CABG 7.? Peripheral arterial disease ?With history of femoropopliteal bypass 8.? Diabetes mellitus type 2 ?Did continue home regimen insulin Lantus and held patient metformin with Accu- Cheks before meals and at bedtime with sliding scale coverage 9.? Physical deconditioning - Requested for PT OT eval and oncology social worker to assist with discharge planning; 10. Hypokalemia ? Corrected per protocol repeat labs ordered for a.m. 11.?Hyperbilirubinemia ? Monitoring with daily LFTs 12. Large right-sided recurrent pleural effusion ? patient underwent ultrasound-guided thoracocentesis on 12/14/2019 with 187 0 mL of garry-colored fluid drained 13. DVT prophylaxis ? Patient is on systemic anticoagulation Time spent in the patient's overall evaluation,decision-making process, review of diagnostic data, adjustment of management, med reconciliation, ordering of labs discussion with other providers, nursing nursing and ancillary staff involved in patient's care documentation, 35 Minutes Charges/Coding Visit Charges Inpatient E&M: 69151 Subs Hosp L2
[2022-12-18 08:01] LABS: Absolute Neutrophil Count 3.1 X10^3/uL (2.0-7.7); Basophil# 0.03 X10^3/uL; Basophil% 0.6 % (0-1); Eosinophil# 0.12 X10^3/uL; Eosinophils% 2.5 % (0-5); Hematocrit 28.4 % (40-54); Hemoglobin 8.7 g/dL (13.0-16.5); Lymphocyte % 20.4 % (19-41); Mean Corp Hgb Conc 30.6 g/dL (32-36); Mean Corpuscular Hgb 30.1 pg (27.0-32.0); Mean Corpuscular Volume 98.3 fL (80-94); Mean Platelet Vol. 10.6 fl (6.2-12.0); Monocyte# 0.66 X10^3/uL; Monocyte% 13.5 % (0-10); NRBC Flagged by Analyzer 0 % (0-5); Neutrophil # 3.05 X10^3/uL (2.7-7.7); Neutrophil % 62.4 % (47-70); POSITIVE MORPHOLOGY YES; Platelet Count 210 K/mm3 (150-450); RBC Distribution Width CV 23.1 % (11.6-14.6); RBC Distribution Width SD 83.8 fl (35.1-43.9); Red Blood Count 2.89 M/mm3 (4.6-6.2); White Blood Count 4.9 K/mm3 (4.4-11.0)
[2022-12-18 08:03] LABS: Differential Indicated SCAN CRITERIA MET
[2022-12-18 08:15] LABS: Anion Gap 4 (5-15); BUN 24 mg/dL (7-18); BUN/Creat Ratio 32.4 RATIO (10-20); Calcium,Total 8.5 mg/dL (8.5-10.1); Chloride 102 mmol/L (98-107); Creatinine, Serum 0.74 mg/dL (0.70-1.30); EST Glomerular Filtration Rate 111 mL/min (>60); Est Glom Filt Rate - Afr Amer 134 mL/min (>60); Estimated Creatinine Clearance 70.97 ml/min; Glucose 136 mg/dL (74-106); Potassium 4.3 mmol/L (3.5-5.1); Sodium Level 134 mmol/L (136-145)
[2022-12-18] MEDS: Ferrous Sulfate 325 MG Tablet PO (08:21)
[2022-12-18] MEDS: Lisinopril 5 MG Tablet PO (08:21)
[2022-12-18] MEDS: Juven (unflavored) Packet 1 PACKET PO ×2 (08:21→17:00)
[2022-12-18] MEDS: Potassium Chloride Oral Tablet 20 MEQ PO ×2 (08:22→17:00)
[2022-12-18] MEDS: Clopidogrel Bisulfate 75 MG Tablet PO (08:22)
[2022-12-18] MEDS: Metoprolol(XL)Succ 100 MG Tablet PO (08:22)
[2022-12-18] MEDS: Furosemide 40 MG/4 ML Vial IV ×2 (08:23→17:00)
[2022-12-18] MEDS: Enoxaparin 100 MG/ML Syringe 90 MG SC ×2 (08:23→21:39)
[2022-12-18] MEDS: Nystatin Powder 15gm Bottle 1 APPLIC TOPICAL ×2 (08:24→21:39)
[2022-12-18] MEDS: Menthol/Lanolin/Calamine/Znox 113 GM Tube 1 APPLIC TOPICAL ×2 (08:24→21:39)
[2022-12-18] MEDS: 0.9% Saline Lock 10 ML Syringe IV (08:30)
[2022-12-18 08:39] LABS: International Normalized Ratio 1.3; Prothrombin Time (Protime)PT. 16.2 SECONDS (11.7-14.9)
[2022-12-18] MEDS: Insulin Glargine-YFGN 100 UNIT/ML Pen 15 UNIT SC (09:13)
[2022-12-18 09:38] LABS: Anisocytosis 2+; Differential Comment SCANNED
[2022-12-18 09:39] LABS: Macrocytosis 1+; Microcytosis 1+
--- NOTE | 2022-12-18 10:51 | PCM.PROGNOTE ---
Subjective Subjective Patient was seen today for follow up on right foot. He is resting in bed, no complaints. WBC normal. No c/o of f/c/n/v. Objective Data Objective Data Vital Signs: Vital Signs Temp Pulse Resp BP Pulse Ox O2 Del Method O2 Flow Rate 98.1 F 104 H 16 111/68 95 Room Air 2 12/18/22 07:51 12/18/22 08:22 12/18/22 07:51 12/18/22 07:51 12/18/22 07:51 12/18/22 07:51 12/17/22 11:50 Oxygen Flow Rate (L/min) [3] 3 Oxygen Flow Rate (L/min) [2] 3 Oxygen Flow Rate (L/min) [1 ( 3 Initial Baseline)] Oxygen Flow Rate (L/min) 2 Oxygen Delivery Method [3] Nasal Cannula Oxygen Delivery Method [2] Room Air Oxygen Delivery Method [1 ( Nasal Cannula Initial Baseline)] Oxygen Delivery Method Room Air Weight: 90.5 kg Body Mass Index (BMI) 27.9 Intake & Output: Intake and Output for Last 24 Hours 12/16/22 12/17/22 12/18/22 23:59 23:59 23:59 Intake Total 351.67 / 351.67 327.11 / 327.11 Output Total 2400 / 3250 2250 / 3050 1200 / 1200 Balance -2048.33 / -2898.33 -1922.89 / -2722.89 -1200 / -1200 Lab / Micro Data Result Diagrams: 12/18/22 07:37 12/18/22 07:37 Labs: Laboratory Results - last 24 hr 12/17/22 16:22: POC Glucose 173 H 12/17/22 20:41: POC Glucose 201 H 12/18/22 06:05: POC Glucose 139 H 12/18/22 07:37: WBC 4.9, RBC 2.89 L, Hgb 8.7 L, Hct 28.4 L, MCV 98.3 H, MCH 30.1, MCHC 30.6 L, RDW Std Deviation 83.8 H, RDW Coeff of Estrada 23.1 H, Plt Count 210, MPV 10.6, Immature Gran % (Auto) 0.600, Neut % (Auto) 62.4, Lymph % (Auto) 20.4, [place] % (Auto) 13.5 H, Eos % (Auto) 2.5, Baso % (Auto) 0.6, Absolute Neuts (auto) 3.1, Absolute Lymphs (auto) 1.00, Nucleated RBC % 0, Differential Comment SCANNED, Anisocytosis 2+, Microcytosis 1+, Macrocytosis 1+ 12/18/22 07:37: Sodium 134 L, Potassium 4.3, Chloride 102, Carbon Dioxide 28.0, Anion Gap 4 L, BUN 24 H, Creatinine 0.74, Estim Creat Clear Calc 70.97, Est GFR (MDRD) Af Amer 134, Est GFR (MDRD) Non-Af 111, BUN/Creatinine Ratio 32.4 H, Glucose 136 H, Calcium 8.5 12/18/22 07:37: PT 16.2 H, INR 1.3 Micro: Microbiology 12/17/22 10:13 Tissue - Clearance Fragment Gram Stain - Final 12/17/22 10:13 Tissue - Clearance Fragment Wound Culture - Preliminary Staphylococcus species 12/17/22 10:11 Bone - 2nd Toe Gram Stain - Final 12/17/22 10:11 Bone - 2nd Toe Wound Culture - Preliminary Staphylococcus aureus Radiography Diagnostic Testing: Radiology Impression Foot X-Ray 12/17/22 10:40 IMPRESSION: Status postsurgical amputation second digit. Electronically Signed: Sage Burrell MD at 18:26 EDT Reading Location ID and State: [address] [place] [address] Tel , Service support , Physical Exam Narrative Right foot 2nd toe amp site is healing well with no evidence of complication, sutures intact, incision well coapted, no dehiscence, no cellulitis, no necrosis, no fluctuance, no crepitus, no evidence of acute ischemia, there is some edema c/w normal post op course to dorsal foot, CFT < 3 seconds to 3-5 toes. Stable left foot. Const alert, oriented x3 and no apparent distress Assessment & Plan Assessment/Plan (1) Osteomyelitis of toe of right foot: (2) Atherosclerosis of lower extremity with ulceration: PLAN: Plan s/p right 2nd toe amputation on 12/17/22 - site doing well, no evidence of complication. Changed dressing - dry gauze, kerlix and jesu dressing. No weightbearing right foot. Vascular surgery is following patient as well. Keep heels offloaded to help prevent break down. Podiatry will continue to follow.
[2022-12-18] MEDS: Insulin Lispro 100 UNIT/ML INSULN.PEN SC ×3 (11:03→21:44)
[2022-12-18 11:22] LABS: Bedside Glucose 198 mg/dL (74-106)
[2022-12-18] MEDS: oxyCODONE 5 MG Tablet PO (15:36)
[2022-12-18 17:22] LABS: Bedside Glucose 156 mg/dL (74-106)
[2022-12-18] MEDS: Atorvastatin Calcium 40 MG Tablet PO (21:39)
[2022-12-18 22:05] LABS: Bedside Glucose 190 mg/dL (74-106)
[2022-12-19] VITALS (8 sets, daily range): BP systolic 115–124; BP diastolic 64–78; PULSE 99–113; RESP 16–24; TEMP 36.5–36.7; O2SAT 96–98; BMI 26.5
[2022-12-19 05:49] LABS: Absolute Lymphocyte Count 0.88 X10^3/uL (0.83-4.51); Absolute Neutrophil Count 3.2 X10^3/uL (2.0-7.7); Basophil# 0.03 X10^3/uL; Basophil% 0.6 % (0-1); Eosinophil# 0.16 X10^3/uL; Eosinophils% 3.3 % (0-5); Hematocrit 30.3 % (40-54); Hemoglobin 9.2 g/dL (13.0-16.5); Lymphocyte # 0.88 X10^3/ul (0.83-4.51); Mean Corp Hgb Conc 30.4 g/dL (32-36); Mean Corpuscular Hgb 30.2 pg (27.0-32.0); Mean Corpuscular Volume 99.3 fL (80-94); Mean Platelet Vol. 10.1 fl (6.2-12.0); Monocyte# 0.63 X10^3/uL; Monocyte% 12.9 % (0-10); NRBC Flagged by Analyzer 0 % (0-5); Neutrophil # 3.16 X10^3/uL (2.7-7.7); Neutrophil % 64.4 % (47-70); POSITIVE MORPHOLOGY YES; Platelet Count 225 K/mm3 (150-450); RBC Distribution Width CV 22.8 % (11.6-14.6); RBC Distribution Width SD 84.4 fl (35.1-43.9); Red Blood Count 3.05 M/mm3 (4.6-6.2); White Blood Count 4.9 K/mm3 (4.4-11.0)
[2022-12-19 05:51] LABS: Differential Indicated SCAN CRITERIA MET
[2022-12-19 05:59] LABS: International Normalized Ratio 1.5; Prothrombin Time (Protime)PT. 17.7 SECONDS (11.7-14.9)
[2022-12-19 06:03] LABS: Anisocytosis 1+; Differential Comment SCANNED; Hypochromasia 1+; Macrocytosis 1+
[2022-12-19 06:16] LABS: Anion Gap 3 (5-15); BUN 26 mg/dL (7-18); Calcium,Total 8.6 mg/dL (8.5-10.1); Chloride 105 mmol/L (98-107); Creatinine, Serum 0.74 mg/dL (0.70-1.30); EST Glomerular Filtration Rate 111 mL/min (>60); Est Glom Filt Rate - Afr Amer 134 mL/min (>60); Estimated Creatinine Clearance 70.97 ml/min; Glucose 129 mg/dL (74-106); Potassium 4.3 mmol/L (3.5-5.1); Sodium Level 135 mmol/L (136-145)
[2022-12-19] MEDS: Acetaminophen 325 MG Tablet 650 MG PO ×3 (06:19→23:06)
[2022-12-19 06:39] LABS: Bedside Glucose 131 mg/dL (74-106)
[2022-12-19] MEDS: Ipratropium/Albuterol Sulfate 3 ML AMPUL.NEB INHALATION ×3 (07:16→18:55)
--- NOTE | 2022-12-19 07:39 | PCM.PN.HOSP ---
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 Hemoglobin 9.2 INR 1.5. Plans for patient to be discharged back to his [facility] facility once insurance precertification is obtained Objective Data Objective Data Vital Signs: Vital Signs Temp Pulse Resp BP Pulse Ox O2 Del Method O2 Flow Rate 97.7 F L 112 H 21 H 115/75 98 Room Air 2 12/19/22 06:13 12/19/22 07:16 12/19/22 07:16 12/19/22 06:13 12/19/22 07:16 12/19/22 07:16 12/17/22 11:50 Oxygen Flow Rate (L/min) [3] 3 Oxygen Flow Rate (L/min) [2] 3 Oxygen Flow Rate (L/min) [1 ( 3 Initial Baseline)] Oxygen Flow Rate (L/min) 2 Oxygen Delivery Method [3] Nasal Cannula Oxygen Delivery Method [2] Room Air Oxygen Delivery Method [1 ( Nasal Cannula Initial Baseline)] Oxygen Delivery Method Room Air Weight: 86 kg Body Mass Index (BMI) 26.5 Intake & Output: Intake and Output for Last 24 Hours 12/17/22 12/18/22 12/19/22 23:59 23:59 23:59 Intake Total 327.11 / 327.11 850 / 850 Output Total 2250 / 3050 3650 / 3650 800 / 800 Balance -1922.89 / -2722.89 -2800 / -2800 -800 / -800 Lab / Micro Data Result Diagrams: 12/19/22 05:35 12/19/22 05:35 Labs: Laboratory Results - last 24 hr 12/18/22 07:37: WBC 4.9, RBC 2.89 L, Hgb 8.7 L, Hct 28.4 L, MCV 98.3 H, MCH 30.1, MCHC 30.6 L, RDW Std Deviation 83.8 H, RDW Coeff of Estrada 23.1 H, Plt Count 210, MPV 10.6, Immature Gran % (Auto) 0.600, Neut % (Auto) 62.4, Lymph % (Auto) 20.4, [place] % (Auto) 13.5 H, Eos % (Auto) 2.5, Baso % (Auto) 0.6, Absolute Neuts (auto) 3.1, Absolute Lymphs (auto) 1.00, Nucleated RBC % 0, Differential Comment SCANNED, Anisocytosis 2+, Microcytosis 1+, Macrocytosis 1+ 12/18/22 07:37: Sodium 134 L, Potassium 4.3, Chloride 102, Carbon Dioxide 28.0, Anion Gap 4 L, BUN 24 H, Creatinine 0.74, Estim Creat Clear Calc 70.97, Est GFR (MDRD) Af Amer 134, Est GFR (MDRD) Non-Af 111, BUN/Creatinine Ratio 32.4 H, Glucose 136 H, Calcium 8.5 12/18/22 07:37: PT 16.2 H, INR 1.3 12/18/22 11:01: POC Glucose 198 H 12/18/22 16:52: POC Glucose 156 H 12/18/22 21:42: POC Glucose 190 H 12/19/22 05:35: PT 17.7 H, INR 1.5 12/19/22 05:35: WBC 4.9, RBC 3.05 L, Hgb 9.2 L, Hct 30.3 L, MCV 99.3 H, MCH 30.2, MCHC 30.4 L, RDW Std Deviation 84.4 H, RDW Coeff of Estrada 22.8 H, Plt Count 225, MPV 10.1, Immature Gran % (Auto) 0.800, Neut % (Auto) 64.4, Lymph % (Auto) 18.0 L, [place] % (Auto) 12.9 H, Eos % (Auto) 3.3, Baso % (Auto) 0.6, Absolute Neuts (auto) 3.2, Absolute Lymphs (auto) 0.88, Nucleated RBC % 0, Differential Comment SCANNED, Hypochromasia 1+, Anisocytosis 1+, Macrocytosis 1+ 12/19/22 05:35: Sodium 135 L, Potassium 4.3, Chloride 105, Carbon Dioxide 27.0, Anion Gap 3 L, BUN 26 H, Creatinine 0.74, Estim Creat Clear Calc 70.97, Est GFR (MDRD) Af Amer 134, Est GFR (MDRD) Non-Af 111, BUN/Creatinine Ratio 35.0 H, Glucose 129 H, Calcium 8.6 12/19/22 06:10: POC Glucose 131 H Micro: Microbiology 12/17/22 10:13 Tissue - Clearance Fragment Gram Stain - Final 12/17/22 10:13 Tissue - Clearance Fragment Wound Culture - Final Meth. resistant Staph. aureus 12/17/22 10:11 Bone - 2nd Toe Gram Stain - Final 12/17/22 10:11 Bone - 2nd Toe Wound Culture - Final Meth. resistant Staph. aureus Physical Exam Narrative GENERAL: cooperative HEENT: Atraumatic; normocephalic EYES; Anicteric, Normal Conjunctiva NECK; supple, normal thyroid, RESPIRATORY: Diminished to auscultation CARDIOVASCULAR: Regular S1 S2, GI: soft, normoactive bowel sounds, : No Renal angle tenderness; EXTREMITIES: An area of induration on the medial aspect of the right MUSCULOSKELETAL: no muscle wasting NEURO: Awake; no lateralizing signs. SKIN: Bruising involving the right buttock area PSYCH; Flat affect Assessment & Plan Assessment/Plan (1) Anemia: (2) Hyperbilirubinemia: PLAN: Plan Patient is a 72-year-old gentleman resident at an [facility] who was brought in with increasing confusion and hyperbilirubinemia patient was also found to be anemic with hemoglobin of 7. Was noticed to have a large bruising involving the right buttock and right upper leg area. 1. Acute on chronic anemia ? Suspected to be secondary to acute blood loss anemia given patient significant bruising involving the right upper leg and right buttock area. With patient being symptomatic patient was transfused with 1 unit PRBC consult was placed to vascular surgery plan is for patient to undergo angiogram. Case discussed with Dr. May plan is for patient to undergo angiogram on the morning of 12/16/2022 ? 12/15/2022 ordered CBC to assess patient anemia -12/19/2022; hemoglobin remained stable 2. Peripheral arterial disease ?Patient underwent aortogram, RLE runoff IVUS right common femoral, sfa, popliteal, TP trunk, peroneal arteries? right sfa/popliteal angioplasty/stent right TP trunk/peroneal artery angioplasty Dr. May on 12/16/2022; scheduled to undergo right toe amputation by podiatry Dr. Yusuf Lozano 3. Open wound involving the right second toe ? Consult placed to podiatry -12/16/2022; seen by podiatry Dr. Yusuf Lozano with plans for patient to undergo right second toe amputation once his lower extremity vascular status is optimized. ? 12/17/2022 patient scheduled to undergo amputation of the second right -12/18/2022; Patient underwent right 2nd toe amputation on 12/17/2022. Pain is tolerable. 4..? Aortic valve disease ?Status post aortic valve replacement [facility] Bruce's mechanical valve.? Patient INR is subtherapeutic apparently due to noncompliance.? Bridged with Lovenox with daily monitoring of INR ordered ? 12/19/2022; INR 1.5 5.? Acute on chronic congestive heart failure with reduced ejection fraction ?Echo obtained on 09/22/2021 demonstrated EF of 30% with moderate global hypokinesis.? Patient is on lisinopril as well as furosemide continued 6.? Coronary artery disease ?With previous CABG 7.? Peripheral arterial disease ?With history of femoropopliteal bypass 8.? Diabetes mellitus type 2 ?Did continue home regimen insulin Lantus and held patient metformin with Accu-Cheks before meals and at bedtime with sliding scale coverage 9.? Physical deconditioning - Requested for PT OT eval and social media marketer to assist with discharge planning; 10. Hypokalemia ? Corrected per protocol repeat labs ordered for a.m. 11.?Hyperbilirubinemia ? Monitoring with daily LFTs 12. Large right-sided recurrent pleural effusion ? patient underwent ultrasound-guided thoracocentesis on 12/14/2019 with 187 0 mL of garry-colored fluid drained 13. DVT prophylaxis ? Patient is on systemic anticoagulation Time spent in the patient's overall evaluation,decision-making process, review of diagnostic data, adjustment of management, med reconciliation, ordering of labs discussion with other providers, nursing nursing and ancillary staff involved in patient's care documentation, 35 Minutes Charges/Coding Visit Charges Inpatient E&M: 67753 Subs Hosp L2
[2022-12-19] MEDS: Ferrous Sulfate 325 MG Tablet PO (07:59)
[2022-12-19] MEDS: Juven (unflavored) Packet 1 PACKET PO ×2 (07:59→16:45)
[2022-12-19] MEDS: Potassium Chloride Oral Tablet 20 MEQ PO ×2 (07:59→16:45)
[2022-12-19] MEDS: oxyCODONE 5 MG Tablet PO ×2 (10:26→23:13)
[2022-12-19] MEDS: Nystatin Powder 15gm Bottle 1 APPLIC TOPICAL ×2 (10:26→19:57)
[2022-12-19] MEDS: Menthol/Lanolin/Calamine/Znox 113 GM Tube 1 APPLIC TOPICAL ×2 (10:26→19:58)
[2022-12-19] MEDS: Furosemide 40 MG/4 ML Vial IV ×2 (10:27→16:46)
[2022-12-19] MEDS: Insulin Glargine-YFGN 100 UNIT/ML Pen 15 UNIT SC (10:27)
[2022-12-19] MEDS: Enoxaparin 100 MG/ML Syringe 90 MG SC ×2 (10:28→19:58)
[2022-12-19] MEDS: Insulin Lispro 100 UNIT/ML INSULN.PEN SC ×3 (10:29→20:06)
[2022-12-19] MEDS: Lisinopril 5 MG Tablet PO (10:29)
[2022-12-19] MEDS: Metoprolol(XL)Succ 100 MG Tablet PO (10:29)
[2022-12-19] MEDS: Clopidogrel Bisulfate 75 MG Tablet PO (10:29)
[2022-12-19 10:42] LABS: Bedside Glucose 209 mg/dL (74-106)
--- NOTE | 2022-12-19 11:59 | PCM.RX.CS ---
Consult Pharmacy has been consulted to manage selected antiobiotic: Vancomycin Type of Consult: New start Labs: Sodium 135 mmol/L (136-145) L 12/19/22 05:35 Potassium 4.3 mmol/L (3.5-5.1) 12/19/22 05:35 Chloride 105 mmol/L (98-107) 12/19/22 05:35 Carbon Dioxide 27.0 mmol/L (21.0-32.0) 12/19/22 05:35 Anion Gap 3 (5-15) L 12/19/22 05:35 BUN 26 mg/dL (7-18) H 12/19/22 05:35 Creatinine 0.74 mg/dL (0.70-1.30) 12/19/22 05:35 Est GFR (MDRD) Af Amer 134 mL/min (>60) 12/19/22 05:35 Est GFR (MDRD) Non-Af 111 mL/min (>60) 12/19/22 05:35 BUN/Creatinine Ratio 35.0 RATIO (10-20) H 12/19/22 05:35 Glucose 129 mg/dL (74-106) H 12/19/22 05:35 Microbiology: Microbiology 12/17/22 10:13 Tissue - Clearance Fragment Gram Stain - Final 12/17/22 10:13 Tissue - Clearance Fragment Wound Culture - Final Meth. resistant Staph. aureus 12/17/22 10:13 Tissue - Clearance Fragment Anaerobic Culture - Preliminary Checking for anaerobes, further studies to follow. 12/17/22 10:11 Bone - 2nd Toe Gram Stain - Final 12/17/22 10:11 Bone - 2nd Toe Wound Culture - Final Meth. resistant Staph. aureus 12/17/22 10:11 Bone - 2nd Toe Anaerobic Culture - Preliminary Checking for anaerobes, further studies to follow. Weight used for dosin kg Estimated Creatinine Clearance: 91ML/MIN Goal Trough: 10-15 mcg/mL Pharmacy Plan for Drug Dosing: Give standard (15mg/kg) dose of 1250mg IV x1 to start, then will continue with 1250mg IV q12h per [facility] dosing protocol. Will check a trough before the 4th dose tomorrow night. Pharmacy Service will continue to monitor and adjust dosing as required. Follow-Up Labs: Trough Vancomycin Labs to be done on [date and time ordered]: 12/20/22 23:30
[2022-12-19 17:10] LABS: Bedside Glucose 213 mg/dL (74-106)
--- NOTE | 2022-12-19 18:04 | PCM.PROGNOTE ---
Subjective Subjective Patient was seen today for follow up on right foot. He is resting in bed, no complaints. No f/c/n/v. Objective Data Objective Data Vital Signs: Vital Signs Temp Pulse Resp BP Pulse Ox O2 Del Method O2 Flow Rate 97.9 F 103 H 16 124/73 H 97 Room Air 2 12/19/22 15:41 12/19/22 15:41 12/19/22 15:41 12/19/22 15:41 12/19/22 15:41 12/19/22 15:41 12/17/22 11:50 Oxygen Flow Rate (L/min) [3] 3 Oxygen Flow Rate (L/min) [2] 3 Oxygen Flow Rate (L/min) [1 ( 3 Initial Baseline)] Oxygen Flow Rate (L/min) 2 Oxygen Delivery Method [3] Nasal Cannula Oxygen Delivery Method [2] Room Air Oxygen Delivery Method [1 ( Nasal Cannula Initial Baseline)] Oxygen Delivery Method Room Air Weight: 86 kg Body Mass Index (BMI) 26.5 Intake & Output: Intake and Output for Last 24 Hours 12/17/22 12/18/22 12/19/22 23:59 23:59 23:59 Intake Total 327.11 / 327.11 850 / 850 625 / 625 Output Total 2250 / 3050 3650 / 3650 1900 / 1900 Balance -1922.89 / -2722.89 -2800 / -2800 -1275 / -1275 Lab / Micro Data Result Diagrams: 12/19/22 05:35 12/19/22 05:35 Labs: Laboratory Results - last 24 hr 12/18/22 21:42: POC Glucose 190 H 12/19/22 05:35: PT 17.7 H, INR 1.5 12/19/22 05:35: WBC 4.9, RBC 3.05 L, Hgb 9.2 L, Hct 30.3 L, MCV 99.3 H, MCH 30.2, MCHC 30.4 L, RDW Std Deviation 84.4 H, RDW Coeff of Estrada 22.8 H, Plt Count 225, MPV 10.1, Immature Gran % (Auto) 0.800, Neut % (Auto) 64.4, Lymph % (Auto) 18.0 L, [place] % (Auto) 12.9 H, Eos % (Auto) 3.3, Baso % (Auto) 0.6, Absolute Neuts (auto) 3.2, Absolute Lymphs (auto) 0.88, Nucleated RBC % 0, Differential Comment SCANNED, Hypochromasia 1+, Anisocytosis 1+, Macrocytosis 1+ 12/19/22 05:35: Sodium 135 L, Potassium 4.3, Chloride 105, Carbon Dioxide 27.0, Anion Gap 3 L, BUN 26 H, Creatinine 0.74, Estim Creat Clear Calc 70.97, Est GFR (MDRD) Af Amer 134, Est GFR (MDRD) Non-Af 111, BUN/Creatinine Ratio 35.0 H, Glucose 129 H, Calcium 8.6 12/19/22 06:10: POC Glucose 131 H 12/19/22 10:23: POC Glucose 209 H 12/19/22 16:43: POC Glucose 213 H Micro: Microbiology 12/17/22 10:13 Tissue - Clearance Fragment Gram Stain - Final 12/17/22 10:13 Tissue - Clearance Fragment Wound Culture - Final Meth. resistant Staph. aureus 12/17/22 10:13 Tissue - Clearance Fragment Anaerobic Culture - Preliminary Checking for anaerobes, further studies to follow. 12/17/22 10:11 Bone - 2nd Toe Gram Stain - Final 12/17/22 10:11 Bone - 2nd Toe Wound Culture - Final Meth. resistant Staph. aureus 12/17/22 10:11 Bone - 2nd Toe Anaerobic Culture - Preliminary Checking for anaerobes, further studies to follow. Physical Exam Narrative Right foot 2nd toe amp site is healing well with no evidence of complication, sutures intact, incision well coapted, no dehiscence, no cellulitis, no necrosis, no fluctuance, no crepitus, no evidence of acute ischemia, there is some edema c/w normal post op course to dorsal foot, CFT < 3 seconds to 3-5 toes. Stable left foot. Const alert, oriented x3 and no apparent distress Assessment & Plan Assessment/Plan (1) Osteomyelitis of toe of right foot: (2) Atherosclerosis of lower extremity with ulceration: PLAN: Plan s/p right 2nd toe amputation on 12/17/22 - site doing well, no evidence of complication. No drainage, no open lesions, no visible abscess, no cellulitis but reviewed available culture data and noted to be positive for MRSA on bone culture and clearance fragment - patient on Vancomycin. Changed dressing - dry gauze, kerlix and jesu dressing. No weightbearing right foot. Vascular surgery is following patient as well. Keep heels offloaded to help prevent break down. Podiatry will continue to follow.
[2022-12-19] MEDS: Atorvastatin Calcium 40 MG Tablet PO (19:58)
[2022-12-19 20:25] LABS: Bedside Glucose 244 mg/dL (74-106)
[2022-12-19] MEDS: 0.9% Saline Lock 10 ML Syringe IV (23:07)
[2022-12-20] VITALS (7 sets, daily range): BP systolic 99–122; BP diastolic 60–77; PULSE 106–110; RESP 16–22; TEMP 36.1–36.5; O2SAT 96–100; BMI 26.5
[2022-12-20] MEDS: Acetaminophen 325 MG Tablet 650 MG PO ×2 (06:03→12:24)
[2022-12-20 06:19] LABS: Bedside Glucose 145 mg/dL (74-106)
[2022-12-20] MEDS: Ipratropium/Albuterol Sulfate 3 ML AMPUL.NEB INHALATION ×2 (07:07→13:30)
[2022-12-20 07:28] LABS: Absolute Lymphocyte Count 0.85 X10^3/uL (0.83-4.51); Absolute Neutrophil Count 3.2 X10^3/uL (2.0-7.7); Basophil# 0.04 X10^3/uL; Basophil% 0.8 % (0-1); Eosinophil# 0.22 X10^3/uL; Eosinophils% 4.3 % (0-5); Hematocrit 30.7 % (40-54); Hemoglobin 9.3 g/dL (13.0-16.5); Lymphocyte # 0.85 X10^3/ul (0.83-4.51); Lymphocyte % 16.7 % (19-41); Mean Corp Hgb Conc 30.3 g/dL (32-36); Mean Corpuscular Hgb 30.3 pg (27.0-32.0); Mean Platelet Vol. 10.6 fl (6.2-12.0); Monocyte# 0.68 X10^3/uL; Monocyte% 13.4 % (0-10); NRBC Flagged by Analyzer 0 % (0-5); Neutrophil # 3.23 X10^3/uL (2.7-7.7); Neutrophil % 63.6 % (47-70); POSITIVE MORPHOLOGY YES; Platelet Count 254 K/mm3 (150-450); RBC Distribution Width SD 80.8 fl (35.1-43.9); Red Blood Count 3.07 M/mm3 (4.6-6.2); White Blood Count 5.1 K/mm3 (4.4-11.0)
[2022-12-20 07:51] LABS: Differential Indicated SCAN CRITERIA MET
[2022-12-20 07:55] LABS: International Normalized Ratio 1.9; Prothrombin Time (Protime)PT. 22.2 SECONDS (11.7-14.9)
[2022-12-20] MEDS: Potassium Chloride Oral Tablet 20 MEQ PO (08:16)
[2022-12-20] MEDS: Enoxaparin 100 MG/ML Syringe 90 MG SC (08:16)
[2022-12-20] MEDS: Juven (unflavored) Packet 1 PACKET PO (08:17)
[2022-12-20] MEDS: Menthol/Lanolin/Calamine/Znox 113 GM Tube 1 APPLIC TOPICAL (08:17)
[2022-12-20] MEDS: Nystatin Powder 15gm Bottle 1 APPLIC TOPICAL (08:17)
[2022-12-20] MEDS: Metoprolol(XL)Succ 100 MG Tablet PO (08:17)
[2022-12-20] MEDS: Clopidogrel Bisulfate 75 MG Tablet PO (08:17)
[2022-12-20] MEDS: Ferrous Sulfate 325 MG Tablet PO (08:17)
[2022-12-20] MEDS: Lisinopril 5 MG Tablet PO (08:17)
--- NOTE | 2022-12-20 08:24 | WOUNDNOTE ---
wound photo: right foot
[2022-12-20] MEDS: oxyCODONE 5 MG Tablet PO ×2 (08:25→14:48)
--- NOTE | 2022-12-20 08:25 | WOUNDNOTE ---
wound photo: right foot
--- NOTE | 2022-12-20 08:25 | WOUNDNOTE ---
wound photo: left 2nd toe
--- NOTE | 2022-12-20 08:27 | WOUNDNOTE ---
wound photo: left foot
[2022-12-20 08:55] LABS: Anion Gap 7 (5-15); BUN 21 mg/dL (7-18); BUN/Creat Ratio 31.8 RATIO (10-20); Calcium,Total 8.9 mg/dL (8.5-10.1); Chloride 103 mmol/L (98-107); Creatinine, Serum 0.66 mg/dL (0.70-1.30); EST Glomerular Filtration Rate 127 mL/min (>60); Est Glom Filt Rate - Afr Amer 153 mL/min (>60); Estimated Creatinine Clearance 70.97 ml/min; Glucose 137 mg/dL (74-106); Potassium 4.4 mmol/L (3.5-5.1); Sodium Level 134 mmol/L (136-145)
[2022-12-20 09:09] LABS: Anisocytosis 1+
[2022-12-20] MEDS: Furosemide 40 MG/4 ML Vial IV (10:33)
[2022-12-20] MEDS: Insulin Glargine-YFGN 100 UNIT/ML Pen 15 UNIT SC (10:33)
[2022-12-20] MEDS: 0.9% Saline Lock 10 ML Syringe IV ×2 (10:33→11:30)
[2022-12-20 11:00] LABS: Bedside Glucose 168 mg/dL (74-106)
[2022-12-20] MEDS: Insulin Lispro 100 UNIT/ML INSULN.PEN SC (11:30)
--- NOTE | 2022-12-20 11:59 | CASEMGMT ---
Addendum entered by Fatmata Sesay 12/20/22 15:03: Per xiomara, pt is ready for discharge today. Discharge orders sent to [facility] via [facility]. Transportation arranged with [facility] for 4:00 picker and packer via cot. SW met with pt and updated on discharge plan, pt agreeable. Pt denied phone call to next of kin for notification of discharge. Pt, bedside nurse and [facility] updated on d/c time. Plan: [facility], intermediate level of care MELISSA Jones Addendum entered by Fatmata Sesay 12/20/22 14:45: Return call from Emmanuelle at [facility] who states that pt can return to their facility when medically ready. Physician updated. Plan: [facility], when medically ready MELISSA Jones Addendum entered by Fatmata Sesay 12/20/22 12:01: Updated clinicals sent via [facility] to [facility]. MELISSA Jones Original Note: Social Work SW placed call to [facility] and spoke with JANET Bustillo, regarding pt return. KALANI inquired about pt's return and if precert would be attempted again for return to skilled level of care or if pt could return to intermediate level of care at this time. [place] to check with staff and call this SW back. Plan: MELISSA Cannon
--- NOTE | 2022-12-20 12:42 | CON.PCM.ID_ITS ---
Assessment & Plan Assessment/Plan (1) Osteomyelitis of toe of right foot: PLAN: Taken to OR 12/17/[address] Lozano for R 2nd toe amp. Clearance cx with MRSA. On vanc. Ok for d/c to [facility] with 6 weeks po doxy. Wrote rx, will follow as needed, thank you, d/w manager rn case HPI Consult Data Date of Consult: 12/20/22 HPI Narrative Reason for Consultation: toe osteo HPI Narrative: RAPHAEL HADDAD, is a 72 M who was admitted from [facility] with encephalopathy. Seen by podiatry due to chronic ulcers of feet and R 2nd toe osteo. Denies any new pain, swelling, redness, drainage, fever. Seen by vascular. Taken to OR 12/[address] May for RLE angioplasty. Taken to OR 12/[address] Lozano for toe amputation. Feeling ok, foot with mild pain, no fever, no n/v/d. Full ROS performed and neg except as noted above. [facility] Medical History Acute and chronic respiratory failure with hypercapnia Acute exacerbation of CHF (congestive heart failure) Acute hypercapnic respiratory failure Adult failure to thrive ZOFIA (acute kidney injury) Anticoagulant long-term use Atherosclerosis of coronary artery without angina pectoris Atherosclerosis of lower extremity with ulceration Bleeding disorder CHF (congestive heart failure) Chronic combined systolic and diastolic CHF (congestive heart failure) Congestive heart failure COPD (chronic obstructive pulmonary disease) COPD (chronic obstructive pulmonary disease) Diabetic foot infection DVT (deep venous thrombosis) Elevated troponin Encephalopathy acute Essential (primary) hypertension Gangrene of toe GERD (gastroesophageal reflux disease) History of non-ST elevation myocardial infarction (NSTEMI) (04/23/20) Hyperlipidemia Inability to walk Ischemic cardiomyopathy Kidney stones 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 Lumbar spinal stenosis MSSA (methicillin susceptible Staphylococcus aureus) infection Nicotine dependence Non-healing surgical wound (05/01/20) Non-pressure chronic ulcer of other part of left foot with fat layer exposed Non-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 Nonrheumatic aortic (valve) stenosis 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 Obstructive sleep apnea Osteomyelitis Osteomyelitis of toe of right foot Peripheral vascular occlusive disease Pleural effusion, right Recurrent right pleural effusion Scabies infestation Secondary pulmonary arterial hypertension Smoker Sternal wound infection Type 2 diabetes mellitus 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 foot with fat layer exposed Ulcer of right foot with necrosis of bone Home Medications atorvastatin 40 mg tablet 40 mg PO QHS cholesterol 11/12/20 [History Last Taken 09/20/21] lisinopril 5 mg tablet 5 mg PO DAILY HTN 10/08/21 [History Last Taken Unknown] ferrous sulfate 325 mg (65 mg iron) tablet 325 mg PO DAILY 10/29/22 [History Last Taken Unknown] ipratropium 0.5 mg-albuterol 3 mg (2.5 mg base)/3 mL nebulization soln 3 ml inhalation Q4H PRN SOB 10/29/22 [History Last Taken Unknown] doxycycline hyclate 100 mg capsule 100 mg PO BID #20 caps 11/10/22 [Rx Last Taken Unknown] acetaminophen 325 mg tablet 650 mg PO Q6H PRN PRN Pain 1-10 Or Fever >100.7 #0 tabs 11/12/22 [Rx Last Taken Unknown] furosemide 40 mg tablet 40 mg PO DAILY #0 tabs 11/12/22 [Rx Last Taken Unknown] insulin glargine-yfgn 100 unit/mL (3 mL) subcutaneous pen 15 unit (0.15 mL) subcut DAILY #0 mL 11/12/22 [Rx Last Taken Unknown] metoprolol succinate 100 mg tablet,extended release 24 hr 100 mg PO DAILY #0 tabs 11/12/22 [Rx Last Taken Unknown] enoxaparin 100 mg/mL subcutaneous syringe (Lovenox) 100 mg subcut Q12H 30 days #60 mL 12/02/22 [Rx Last Taken Unknown] cyclobenzaprine 10 mg tablet 10 mg PO TID PRN Muscle Pain 12/11/22 [History Last Taken Unknown] enoxaparin 100 mg/mL subcutaneous syringe (Lovenox) 100 mg subcut Q12H Check with primary doctor 12/11/22 [History Last Taken Unknown] insulin lispro 100 unit/mL subcutaneous pen (Humalog KwikPen (U-100) Insulin) unit subcut ACHS 12/11/22 [History Last Taken Unknown] oxycodone 5 mg capsule 5 mg PO BID PRN Pain 12/11/22 [History Last Taken Unknown] warfarin 4 mg tablet 4 mg PO DAILY Check with primary doctor 12/11/22 [History Last Taken Unknown] doxycycline hyclate 100 mg capsule 100 mg PO BID #80 caps 12/20/22 [Rx Last Taken Unknown] Allergy/AdvReac Type Severity Reaction Status Date / Time No Known Allergies Allergy Verified 11/16/22 14:11 Family History Mother Diabetes Heart disease Father Diabetes Surgical History H/O coronary artery bypass surgery (05/01/20) History of angioplasty of peripheral vessel (01/02/10) History of femoropopliteal bypass (2008) History of incision and drainage (09/22/20) History of left heart catheterization (04/23/20) History of lumbar laminectomy History of mechanical aortic valve replacement Social History household members: significant other Smoking Status: Current every day smoker tobacco type: cigarettes alcohol intake: never substance use type: does not use caffeine: No Physical Exam Const alert and no apparent distress General Appearance: cooperative HEENT normocephalic and head/scalp atraumatic Eyes PERRL and EOMs intact bilaterally Neck supple and No nodes Resp normal air movement and clear to auscultation bilaterally Cardio regular rate and regular rhythm GI soft to palpation, non-tender and non-distended Extremity General Extremity: Negative for edema Skin Skin Narrative: reviewed wound photos Neuro CN's II-XII intact bilaterally Lab / Micro Data Attestation: I reviewed the patient's lab results. Result Diagrams: 12/20/22 07:05 12/20/22 07:05 Labs: Laboratory Results - last 24 hr 12/19/22 16:43: POC Glucose 213 H 12/19/22 20:05: POC Glucose 244 H 12/20/22 06:00: POC Glucose 145 H 12/20/22 07:05: PT 22.2 H, INR 1.9 12/20/22 07:05: WBC 5.1, RBC 3.07 L, Hgb 9.3 L, Hct 30.7 L, MCV 100.0 H, MCH 30.3, MCHC 30.3 L, RDW Std Deviation 80.8 H, RDW Coeff of Estrada 22.0 H, Plt Count 254, MPV 10.6, Immature Gran % (Auto) 1.200 H, Neut % (Auto) 63.6, Lymph % (Auto) 16.7 L, [place] % (Auto) 13.4 H, Eos % (Auto) 4.3, Baso % (Auto) 0.8, Absolute Neuts (auto) 3.2, Absolute Lymphs (auto) 0.85, Nucleated RBC % 0, Anisocytosis 1+ 12/20/22 07:05: Sodium 134 L, Potassium 4.4, Chloride 103, Carbon Dioxide 24.0, Anion Gap 7, BUN 21 H, Creatinine 0.66 L, Estim Creat Clear Calc 70.97, Est GFR (MDRD) Af Amer 153, Est GFR (MDRD) Non-Af 127, BUN/Creatinine Ratio 31.8 H, Glucose 137 H, Calcium 8.9 12/20/22 10:35: POC Glucose 168 H Micro: Microbiology 12/17/22 10:13 Tissue - Clearance Fragment Gram Stain - Final 12/17/22 10:13 Tissue - Clearance Fragment Wound Culture - Final Meth. resistant Staph. aureus 12/17/22 10:13 Tissue - Clearance Fragment Anaerobic Culture - Preliminary Checking for anaerobes, further studies to follow. 12/17/22 10:11 Bone - 2nd Toe Gram Stain - Final 12/17/22 10:11 Bone - 2nd Toe Wound Culture - Final Meth. resistant Staph. aureus 12/17/22 10:11 Bone - 2nd Toe Anaerobic Culture - Preliminary Checking for anaerobes, further studies to follow.
--- NOTE | 2022-12-20 14:17 | TREXTCAR_ITS ---
Diet Diet Order/Speech Therapy: 12/17/22 10:16 Diet: Carbohydrate Controlled Dietary Modifications:: Sodium Restricted Is pt able to select menu?: No Routine Orders/Code Status Routine Lab Work: CBC and BMP Code Status: DNRCC-A Wound(s) L toe 2nd toe necrotic area on dorsal area: Wound Type: Neuropathic/Diabetic Foot Ulcer L foot 4th toe open area: Wound Type: small scab R 2nd toe dorsal: Wound Type: Open Surgical Wound scrotum-small open area: Wound Type: open sore R posterior back: Wound Type: Puncture L groin: Wound Type: Surgical Incision R 2nd toe amputation: Wound Type: surgical incision s/p right 2nd toe amputation Dressing Change: betadine with dry dressing Therapies Weight Bearing: Non weight bearing Physical Therapy: Eval and Treat Occupational Therapy: Eval and Treat Problem/Diagnosis (1) Osteomyelitis of toe of right foot: Status: Chronic Code(s): M86.9 - Osteomyelitis, unspecified (2) Atherosclerosis of lower extremity with ulceration: Status: Acute Code(s): I70.25 - Atherosclerosis of [place] arteries of other extremities with ulceration Allergies/Procedures Done in Hospital Allergies No Known Allergies Allergy (Verified 11/16/22 14:11) Procedures: - (Right second toe amputation, right lower extremity angioplasty with stent placement) Type of Care/Length of Stay Estimated LOS: Convalescent Care Less Than 30 days Type of Care Needed: Skilled Rehab Potential: Good Prognosis: Good Additional Orders/Day of Discharge Day of Discharge: 12/20/22 Dietary and Speech Recommendations Dietitian Recommendations/Changes: Continue Carbohydrate Controlled, Sodium Restricted w/ Renny BID for wound healing Discharge Plan Admission Admit Date/Time: 12/11/22 19:52 Attending Provider: Fernandez Rosario Primary Care Provider: Feliciano Pace Consulting Providers: Yusuf Lozano ; Kendrick May ; Greg Cotter ; Jose Gutierrez ; John Johansen Instructions Patient Instructions: SAM RN Thoracentesis Dc Discharge Orders/Prescriptions Prescriptions: New doxycycline hyclate 100 mg capsule 100 mg PO BID Qty: 80 0RF clopidogrel 75 mg Tablet 75 mg PO DAILY Qty: 0 0RF Continued lisinopril 5 mg tablet 5 mg PO DAILY atorvastatin 40 mg Tablet 40 mg PO QHS ipratropium-albuterol 0.5 mg-3 mg(2.5 mg base)/3 mL Solution For Nebulization 3 ml INHALATION Q4H PRN (Reason: SOB) ferrous sulfate 325 mg (65 mg iron) tablet 325 mg PO DAILY insulin glargine-yfgn 100 unit/mL (3 mL) Insulin Pen 15 unit subcut DAILY Qty: 0 0RF acetaminophen 325 mg Tablet 650 mg PO Q6H PRN PRN (Reason: Pain 1-10 Or Fever >100.7) Qty: 0 0RF metoprolol succinate 100 mg Tablet Extended Release 24 Hr 100 mg PO DAILY Qty: 0 0RF furosemide 40 mg Tablet 40 mg PO DAILY Qty: 0 0RF cyclobenzaprine 10 mg Tablet 10 mg PO TID PRN (Reason: Muscle Pain) insulin lispro [Humalog KwikPen Insulin] 100 unit/mL Insulin Pen SUBCUT ACHS Rx Instructions: SLIDING SCALE enoxaparin [Lovenox] 100 mg/mL Syringe 100 mg SUBCUT Q12H warfarin 4 mg tablet 4 mg PO DAILY enoxaparin [Lovenox] 100 mg/mL syringe 100 mg subcut Q12H 30 Days Qty: 60 1RF Rx Instructions: Administer 100mg (1mL) subcutaneously every 12 hours as directed. Held oxycodone 5 mg Capsule 5 mg PO BID PRN (Reason: Pain) Hold Instructions: Resume on 12/22/22. Discontinued doxycycline hyclate 100 mg capsule 100 mg PO BID Qty: 20 0RF Referrals / Follow Up: Feliciano Pace MD [Primary Care Provider] - Saurabh Hernandez Chi, MD [Med Staff - Active Staff] - Disposition Disposition (needs filled in before D/C Order can be placed): Residential Facility
--- NOTE | 2022-12-20 15:21 | PCM.DC.SUM ---
Providers Date of Admission: 12/11/22 Primary Care Physician: Dr. Feliciano Pace MD Consultations 12/13/22 14:15 Consult: Vascular Surgery Routine Consulting Provider: Kendrick May Reason for Consult: need for angiogram EMERGENT Consult: No Notified: Yes Date Notified: 12/13/22 Time Notified: 14:15 Method of Notification: Verbal 12/13/22 14:16 Consult: Onc/Wound/crts Routine Comment: Reason for Consult:: foot wound Consult: Podiatry Routine Consulting Provider: Yusuf Lozano Reason for Consult: right foot 2nd toe wound EMERGENT Consult: No Notified: Yes Date Notified: 12/13/22 Time Notified: 14:19 Method of Notification: Verbal 12/19/22 10:37 Consult: Infectious Disease Routine Consulting Provider: John Johansen Reason for Consult: MRSA wound infection EMERGENT Consult: No MD Notified: Yes Date Notified: 12/20/22 Time Notified: 06:50 Method of Notification: answering service Reason For Visit: ANEMIA, RIGHT PLEURAL EFFUSION, HYPERBILIRUBINEMIA Diagnosis Discharge Diagnosis (1) Osteomyelitis of toe of right foot: Status: Chronic Code(s): M86.9 - Osteomyelitis, unspecified (2) Atherosclerosis of lower extremity with ulceration: Status: Acute Code(s): I70.25 - Atherosclerosis of [place] arteries of other extremities with ulceration Medications at Discharge Home Medications atorvastatin 40 mg tablet 40 mg PO QHS cholesterol 11/12/20 lisinopril 5 mg tablet 5 mg PO DAILY HTN 10/08/21 ferrous sulfate 325 mg (65 mg iron) tablet 325 mg PO DAILY 10/29/22 ipratropium 0.5 mg-albuterol 3 mg (2.5 mg base)/3 mL nebulization soln 3 ml inhalation Q4H PRN SOB 10/29/22 acetaminophen 325 mg tablet 650 mg PO Q6H PRN PRN Pain 1-10 Or Fever >100.7 #0 tabs 11/12/22 furosemide 40 mg tablet 40 mg PO DAILY #0 tabs 11/12/22 insulin glargine-yfgn 100 unit/mL (3 mL) subcutaneous pen 15 unit (0.15 mL) subcut DAILY #0 mL 11/12/22 metoprolol succinate 100 mg tablet,extended release 24 hr 100 mg PO DAILY #0 tabs 11/12/22 enoxaparin 100 mg/mL subcutaneous syringe (Lovenox) 100 mg subcut Q12H 30 days #60 mL 12/02/22 cyclobenzaprine 10 mg tablet 10 mg PO TID PRN Muscle Pain 12/11/22 insulin lispro 100 unit/mL subcutaneous pen (Humalog KwikPen (U-100) Insulin) unit subcut ACHS 12/11/22 oxycodone 5 mg capsule 5 mg PO BID PRN Pain 12/11/22 warfarin 4 mg tablet 4 mg PO DAILY Check with primary doctor 12/11/22 clopidogrel 75 mg tablet 75 mg PO DAILY #0 tabs 12/20/22 doxycycline hyclate 100 mg capsule 100 mg PO BID #80 caps 12/20/22 Hospital Course Operations None Procedures - (Right toe amputation for osteomyelitis, right lower extremity angiogram with stents) Summary of Care Provided Minutes Spent on Discharge: 38 Hospital Course: Per HPI: RAPHAEL HADDAD, is a 72 M who presents to the emergency room at [facility] by squad from the local [facility] where he is receiving rehab services due to an elevated bilirubin and increased lethargy and confusion.? Patient has a history of chronic hypoxic respiratory failure, right pleural effusion, chronic anticoagulation due to mechanical heart valve, coronary artery disease, and systolic CHF as well as cognitive impairment-type unknown. Work-up in the emergency room today included labs-patient's white blood cell count was low at 4.2, hemoglobin was 7, INR was 1.4, potassium was 3.2, BUN was 39, glucose was 180, total bilirubin was 2.7, alkaline phosphatase was 196, LDH was 263. Patient had a CT of his abdomen and pelvis, there was noted to be a large right pleural effusion with total atelectatic collapse of the right lower lobe, there was a large right upper abdominal wall hernia, anasarca was noted.? There is noted to be moderate ascites, liver appeared normal. Patient was admitted to [place] [id number] for acute on chronic anemia and recurrent right pleural effusion, he will receive 1 unit of packed red blood cells, liver profile will be repeated tomorrow as well as other labs.? I talked extensively with the assisted today, they stated that the patient was on subcu Lovenox for his mechanical heart valve due to planned vascular intervention, he had also fallen recently at the assisted and sustained some bruising, on examination today, patient does have some bruising over his left buttocks area but that is the only real area I see bruising.? Patient has been also confused off-and-on at the facility according to the nursing staff at the assisted. Patient's oxygen requirement appears to be 3 L which is his baseline, we probably will not be able to do a thoracentesis till early next week unless the patient's respiratory status worsens.? Nursing at the assisted states that the patient is a DNR CC arrest. Hospital Course: 1. Acute metabolic encephalopathy with right pleural effusion and right toe osteomyelitis status post amputation as well as right lower extremity angiogram and stent placement for peripheral artery disease?72-year-old male presented to the hospital from a SNF secondary to confusion and altered mental status. On admission he was found to have a right pleural effusion which was drained with almost 2000 cc. He also had a right toe amputation due to osteomyelitis on 12/17/2022, infectious disease was consulted and recommended discharged on 6 more weeks of oral antibiotics. He did have vascular surgery intervention as well with what appears to be stent placements. Therefore we will continue with therapeutic Lovenox pending normalization of his INR while on Coumadin and he was also started on Plavix. I do recommend follow-up with vascular surgery as well as podiatry on discharge. I discussed with him the plan for discharge today he expressed understanding of the risk and benefits of going back to the assisted and would like to go today. 2. Acute on chronic systolic CHF with aortic valve replacement and pleural effusion/CAD status post CABG?he does have a [facility]. Bruce's valve in therefore will bridge his anticoagulation, his INR today is 1.9 will continue with therapeutic Lovenox until his INR is therapeutic. We will continue with his other home medications. 3. Acute on chronic anemia?possibly due to blood loss he did have significant bruising in his right upper leg, he was transfused 1 unit and his hemoglobin has corrected from 7 on admission to 9.3 today I do recommend outpatient monitoring. 4. Hyperbilirubinemia?unclear as to the etiology though he has had elevated total bilirubins in the past and has been fairly fluctuant so I recommend outpatient monitoring and follow-up Physical Exam Narrative General: Alert, Oriented x3, Cooperative, No apparent distress HEENT: Atraumatic, PERRLA, EOMI, Normocephalic Oral: Moist Mucosa Neck: Supple, No JVD Lungs: Diminished, Normal air movement, No rhonchi, No wheeze, No rales Cardiovascular: Regular rate, Regular Rhythm, Normal S1, Normal S2, No murmurs Abdomen: Soft, Non Tender, Non-Distended, No Hepato-splenomegaly Extremities: No edema, Capillary Refill Less than 3 Seconds Skin: Right foot dressing intact and clean Musculoskeletal: No Tenderness to Palpation of Joints or Extremities Neurological: Cranial nerves II-XII grossly intact, Motor Exam 5/5 strength throughout, Sensory exam intact to light touch and pain Psych/Mental Status: Normal Affect, Appropriate Weight / BMI Weight Weight: 189 lb 9.561 oz Body Mass Index (BMI) 26.5 ABG / Lab / Microbiology Data Result Diagrams: 12/20/22 07:05 12/20/22 07:05 Laboratory: Laboratory Results - last 24 hr 12/19/22 16:43: POC Glucose 213 H 12/19/22 20:05: POC Glucose 244 H 12/20/22 06:00: POC Glucose 145 H 12/20/22 07:05: PT 22.2 H, INR 1.9 12/20/22 07:05: WBC 5.1, RBC 3.07 L, Hgb 9.3 L, Hct 30.7 L, MCV 100.0 H, MCH 30.3, MCHC 30.3 L, RDW Std Deviation 80.8 H, RDW Coeff of Estrada 22.0 H, Plt Count 254, MPV 10.6, Immature Gran % (Auto) 1.200 H, Neut % (Auto) 63.6, Lymph % (Auto) 16.7 L, [place] % (Auto) 13.4 H, Eos % (Auto) 4.3, Baso % (Auto) 0.8, Absolute Neuts (auto) 3.2, Absolute Lymphs (auto) 0.85, Nucleated RBC % 0, Anisocytosis 1+ 12/20/22 07:05: Sodium 134 L, Potassium 4.4, Chloride 103, Carbon Dioxide 24.0, Anion Gap 7, BUN 21 H, Creatinine 0.66 L, Estim Creat Clear Calc 70.97, Est GFR (MDRD) Af Amer 153, Est GFR (MDRD) Non-Af 127, BUN/Creatinine Ratio 31.8 H, Glucose 137 H, Calcium 8.9 12/20/22 10:35: POC Glucose 168 H Microbiology: Microbiology 12/17/22 10:13 Tissue - Clearance Fragment Gram Stain - Final 12/17/22 10:13 Tissue - Clearance Fragment Wound Culture - Final Meth. resistant Staph. aureus 12/17/22 10:13 Tissue - Clearance Fragment Anaerobic Culture - Preliminary Checking for anaerobes, further studies to follow. 12/17/22 10:11 Bone - 2nd Toe Gram Stain - Final 12/17/22 10:11 Bone - 2nd Toe Wound Culture - Final Meth. resistant Staph. aureus 12/17/22 10:11 Bone - 2nd Toe Anaerobic Culture - Preliminary Checking for anaerobes, further studies to follow. Meaningful Use Info Meaningful Use Diagnoses (Choose all that apply): None applicable Discharge Plan Admission Admit Date/Time: 12/11/22 19:52 Attending Provider: Fernandez Rosario Primary Care Provider: Feliciano Pace Consulting Providers: Yusuf Lozano ; Kendrick May ; Greg Cotter ; Jose Gutierrez ; John Johansen Instructions Patient Instructions: RAD RN Thoracentesis Dc Discharge Orders/Prescriptions Prescriptions: New doxycycline hyclate 100 mg capsule 100 mg PO BID Qty: 80 0RF clopidogrel 75 mg Tablet 75 mg PO DAILY Qty: 0 0RF Continued lisinopril 5 mg tablet 5 mg PO DAILY atorvastatin 40 mg Tablet 40 mg PO QHS ipratropium-albuterol 0.5 mg-3 mg(2.5 mg base)/3 mL Solution For Nebulization 3 ml INHALATION Q4H PRN (Reason: SOB) ferrous sulfate 325 mg (65 mg iron) tablet 325 mg PO DAILY insulin glargine-yfgn 100 unit/mL (3 mL) Insulin Pen 15 unit subcut DAILY Qty: 0 0RF acetaminophen 325 mg Tablet 650 mg PO Q6H PRN PRN (Reason: Pain 1-10 Or Fever >100.7) Qty: 0 0RF metoprolol succinate 100 mg Tablet Extended Release 24 Hr 100 mg PO DAILY Qty: 0 0RF furosemide 40 mg Tablet 40 mg PO DAILY Qty: 0 0RF cyclobenzaprine 10 mg Tablet 10 mg PO TID PRN (Reason: Muscle Pain) insulin lispro [Humalog KwikPen Insulin] 100 unit/mL Insulin Pen SUBCUT ACHS Rx Instructions: SLIDING SCALE enoxaparin [Lovenox] 100 mg/mL Syringe 100 mg SUBCUT Q12H warfarin 4 mg tablet 4 mg PO DAILY enoxaparin [Lovenox] 100 mg/mL syringe 100 mg subcut Q12H 30 Days Qty: 60 1RF Rx Instructions: Administer 100mg (1mL) subcutaneously every 12 hours as directed. Held oxycodone 5 mg Capsule 5 mg PO BID PRN (Reason: Pain) Hold Instructions: Resume on 12/22/22. Discontinued doxycycline hyclate 100 mg capsule 100 mg PO BID Qty: 20 0RF Referrals / Follow Up: Feliciano Pace MD [Primary Care Provider] - Saurabh Hernandez Chi, MD [Med Staff - Active Staff] - Disposition Disposition (needs filled in before D/C Order can be placed): [facility] Facility Charges/Coding Visit Charges Inpatient E&M: 19573 Disch Hosp >30min
== END 2022-12-20 17:04 | disposition skilled nursing facility (03) | DRG 982 ==
LOC: ED 18:34 → MS3 20:08 → PCU 12-16 13:25 → MS3 12-16 18:25
PROVIDERS: Anesthesiology; Internal Medicine; Podiatrist; Surgery Trauma Surgery; Admitting Provider Internal Medicine; Emergency Provider Emergency Medicine; PCP Family Medicine; Visit Provider Family Medicine
PROC: 0Y6R0Z0 Detachment at Right 2nd Toe, Complete, Open Approach (ICD-10-PCS; principal; 2022-12-17 09:15)
DX: D62 Acute posthemorrhagic anemia (principal); I70.261 Atherosclerosis of native arteries of extremities with gangrene, right leg; E11.52 Type 2 diabetes mellitus with diabetic peripheral angiopathy with gangrene; J96.11 Chronic respiratory failure with hypoxia; J90 Pleural effusion, not elsewhere classified; R18.8 Other ascites; I50.22 Chronic systolic (congestive) heart failure; M86.671 Other chronic osteomyelitis, right ankle and foot; D69.6 Thrombocytopenia, unspecified; I11.0 Hypertensive heart disease with heart failure; J44.9 Chronic obstructive pulmonary disease, unspecified; E11.621 Type 2 diabetes mellitus with foot ulcer; E11.69 Type 2 diabetes mellitus with other specified complication; E11.42 Type 2 diabetes mellitus with diabetic polyneuropathy; Z79.4 Long term (current) use of insulin; L97.514 Non-pressure chronic ulcer of other part of right foot with necrosis of bone; L97.521 Non-pressure chronic ulcer of other part of left foot limited to breakdown of skin; I35.0 Nonrheumatic aortic (valve) stenosis; E78.5 Hyperlipidemia, unspecified; S30.0XXA Contusion of lower back and pelvis, initial encounter; I25.10 Atherosclerotic heart disease of native coronary artery without angina pectoris; E80.6 Other disorders of bilirubin metabolism; I25.5 Ischemic cardiomyopathy; E87.6 Hypokalemia; W19.XXXA Unspecified fall, initial encounter; F17.210 Nicotine dependence, cigarettes, uncomplicated; I25.2 Old myocardial infarction; M20.41 Other hammer toe(s) (acquired), right foot; R53.81 Other malaise; R62.7 Adult failure to thrive; B95.62 Methicillin resistant Staphylococcus aureus infection as the cause of diseases classified elsewhere; Z66 Do not resuscitate; Z95.1 Presence of aortocoronary bypass graft; Z95.2 Presence of prosthetic heart valve; Z68.26 Body mass index [BMI] 26.0-26.9, adult; Z74.01 Bed confinement status; Z79.01 Long term (current) use of 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s; Z79.02 Long term (current) use of antithrombotics/antiplatelets; Z99.81 Dependence on supplemental oxygen; Z79.891 Long term (current) use of opiate analgesic; Z79.899 Other long term (current) drug therapy
CPT/HCPCS: 32555; 36200; 36245; 36415; 37226; 37228; 37252; 37253; 71045; 71046; 73630; 74177; 75625; 75710; 76937; 80048; 80053; 80076; 81001; 82962; 83036; 83615; 83690; 83735; 84100; 85025; 85347; 85610; 85730; 86850; 86900; 86901; 86920; 86922; 87015; 87070; 87075; 87077; 87102; 87116; 87176; 87186; 87205; 87206; 87426; 88304; 88305; 88311; 93005; 94640; 97110; 97116; 97162; 97166; 97530; 97535; 99152; 99153; 99285; 99406; C1725; C1753; C1760; C1769; C1887; C2623; J7040; J7050; J7120; P9016; Q9967; A4216; C1876; J1940; J2405

== ENCOUNTER → 2023-01-26 | Outpatient (CLI) | payer MEDICARE, MEDICAID, SELFPAY ==
--- NOTE | 2023-01-26 09:42 | ADUL_ITS ---
Reason For Study: S/P Right sfa/pop & T/P trunk/peroneal angioplasty/stent Right Velocities Ext. Iliac Artery, dist = 167.8 cm./sec. Common Femoral Artery, mid = 133.7 cm./sec. Supf Femoral Artery, prox = 103 cm./sec. Supf Femoral Artery, mid = 65.6 cm./sec. Supf Femoral Artery, dist. = 47.3 cm./sec. Profunda Femoral Artery = 138.1 cm./sec. Popliteal Artery, mid = 40.6 cm./sec. Popliteal Artery, dist = 38.4 cm./sec. Peroneal Artery, prox = 85.8 cm./sec. Peroneal Artery, mid = 50.2 cm./sec. Peroneal Artery,dist = 51.5 cm./sec. Ant. Tibial Artery, prox = 14.2 cm./sec. MAGNUS mid, No flow. MAGNUS distal, Retrograde flow. 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 Procedure Techically difficult to visualize stent vs calcification. Exam performed in department. /US Art Duplex Unilat Lower Ext Interpretation Summary Right SFA/popliteal, peroneal arteries patent with normal velocities and no agata dence of stenosis Right posterior tibial artery occluded Right anterior tibial artery occluded with retrograde flow distally. Ordering Physician: Noemí Awad Referring Physician: Feliciano Pace Performed By: Maricel Delcid RVT
--- NOTE | 2023-01-26 09:45 | ART_ITS ---
Reason For Study: S/P Right sfa/pop & T/P trunk/peroneal angioplasty/stent Procedure A bilateral lower extremity continuous wave Doppler with analog waveform analysis and ankle brachial indexes. Left Segmental Pressures Left brachial= 115mmHg. Left posterior tibial artery = >254mmHg. Left dorsalis pedis artery = 93mmHg. Left digit = 44 mmHg. The left dorsalis pedis waveforms are biphasic. The left posterior tibial artery waveforms are biphasic. Right Segmental Pressures Right brachial= 114mmHg. Right posterior tibial artery = 126mmHg. Right dorsalis pedis artery = 118mmHg. The right dorsalis pedis waveforms are biphasic. The right posterior tibial artery waveforms are biphasic. Indices The right ankle brachial index by the dorsalis pedis is 1.03. The right ankle brachial index by the posterior tibial artery is 1.10. The left ankle brachial index by the dorsalis pedis is 0.81. The left ankle brachial index by the posterior tibial artery is NC. The left digital-brachial index is 0.38. VL/Ankle Brachial Index Interpretation Summary Right HERNESTO 1.1, normal. Doppler/PVR waveforms of the right leg normal at rest. Left HERNESTO 0.81, moderate arterial insufficiency. Doppler/PVR waveforms of the le ft ankle mildly diminished at rest. Ordering Physician: Noemí Awad Referring Physician: Feliciano Pace Performed By: Maricel Delcid RVT
== END | disposition home or self-care (01) ==
LOC: CVS 09:41
PROVIDERS: PCP Family Medicine; Referring Provider Physician Assistant; Visit Provider Physician Assistant
DX: I70.25 Atherosclerosis of native arteries of other extremities with ulceration (principal); Z48.812 Encounter for surgical aftercare following surgery on the circulatory system
CPT/HCPCS: 93922; 93926

== ENCOUNTER → 2023-05-17 | Outpatient (CLI) | payer MEDICARE, MEDICAID, SELFPAY ==
[2023-05-17 16:30] LABS: Absolute Lymphocyte Count 1.57 X10^3/uL (0.83-4.51); Absolute Neutrophil Count 3.3 X10^3/uL (2.0-7.7); Basophil# 0.03 X10^3/uL; Basophil% 0.5 % (0-1); Eosinophil# 0.19 X10^3/uL; Eosinophils% 3.4 % (0-5); Hematocrit 41.6 % (40-54); Hemoglobin 13.2 g/dL (13.0-16.5); Lymphocyte # 1.57 X10^3/ul (0.83-4.51); Lymphocyte % 27.8 % (19-41); Mean Corp Hgb Conc 31.7 g/dL (32-36); Mean Corpuscular Hgb 31.1 pg (27.0-32.0); Mean Corpuscular Volume 97.9 fL (80-94); Mean Platelet Vol. 10.7 fl (6.2-12.0); Monocyte# 0.53 X10^3/uL; Monocyte% 9.4 % (0-10); NRBC Flagged by Analyzer 0 % (0-5); Neutrophil # 3.31 X10^3/uL (2.7-7.7); Neutrophil % 58.5 % (47-70); Platelet Count 165 K/mm3 (150-450); RBC Distribution Width CV 15.2 % (11.6-14.6); RBC Distribution Width SD 54.3 fl (35.1-43.9); Red Blood Count 4.25 M/mm3 (4.6-6.2); White Blood Count 5.7 K/mm3 (4.4-11.0)
[2023-05-17 16:53] LABS: Vitamin D,25 Hydroxy 46.3 ng/mL
[2023-05-17 17:00] LABS: AST(SGOT) 24 U/L (15-37); Alanine Aminotransfer ALT/SGPT 35 U/L (16-61); Albumin, Serum 3.8 g/dL (3.2-5.0); Alkaline Phosphatase 182 U/L (45-117); Anion Gap 4 (5-15); BUN 22 mg/dL (7-18); BUN/Creat Ratio 24.8 RATIO (10-20); Calcium,Total 8.6 mg/dL (8.5-10.1); Chloride 107 mmol/L (98-107); Creatinine, Serum 0.89 mg/dL (0.70-1.30); EST Glomerular Filtration Rate 90 mL/min (>60); Est Glom Filt Rate - Afr Amer 109 mL/min (>60); Globulin 3.9 g/dL (2.2-4.2); Glucose 155 mg/dL (74-106); Potassium 3.7 mmol/L (3.5-5.1); Protein, Total 7.7 g/dL (6.4-8.2); Sodium Level 140 mmol/L (136-145); Thyroid Stim Hormone (TSH) 1.69 uIU/mL (0.358-3.74)
== END | disposition home or self-care (01) ==
LOC: POLAB3 15:21
PROVIDERS: PCP Family Medicine; Visit Provider Family Medicine Geriatric Medicine
DX: E11.65 Type 2 diabetes mellitus with hyperglycemia (principal); E55.9 Vitamin D deficiency, unspecified; I10 Essential (primary) hypertension
CPT/HCPCS: 36415; 80053; 82306; 84443; 85025

== ENCOUNTER → 2023-05-25 | Outpatient (CLI) | payer MEDICARE, MEDICAID, SELFPAY ==
--- NOTE | 2023-05-25 08:57 | ART_ITS ---
Reason For Study: LLE Ulcer Procedure A bilateral lower extremity continuous wave Doppler with analog waveform analysis,segmental pressures,and ankle brachial indexes without exercise. Left Segmental Pressures Left brachial= 123mmHg. Left thigh = 128mmHg. Left calf = 124mmHg. Left posterior tibial artery = >254mmHg. Left dorsalis pedis artery = >254mmHg. Left digit = 49 mmHg. The left posterior tibial artery waveforms are biphasic. The left dorsalis pedis waveforms are biphasic. Right Segmental Pressures Right brachial= 125mmHg. Right calf = 155mmHg. Right posterior tibial artery = 117mmHg. Right dorsalis pedis artery = 119mmHg. The right posterior tibial artery waveforms are biphasic. The right dorsalis pedis waveforms are biphasic. Indices The right ankle brachial index by the posterior tibial artery is 0.94. The right ankle brachial index by the dorsalis pedis is 0.95. The left ankle brachial index by the posterior tibial artery is N/C. The left ankle brachial index by the dorsalis pedis is N/C. The left digital-brachial index is 0.39. VL/Lower Ext Art Exam w/ Exercise Interpretation Summary Right HERNESTO 0.95, mild arterial insufficiency. Doppler/PVR waveforms and segmenta l pressures reveal infrapopliteal disease. Left HERNESTO not able to be obtained due to non-compressible vessels. Doppler/PVR w aveforms mildly diminished infrapopliteal. TBI diminished consistent with presence of disease Ordering Physician: Noemí Amos Referring Physician: Feliciano Pace Performed By: Santiago Brar RVT
== END | disposition home or self-care (01) ==
LOC: CVS 08:57
PROVIDERS: PCP Family Medicine; Referring Provider Physician Assistant; Visit Provider Physician Assistant
DX: I70.25 Atherosclerosis of native arteries of other extremities with ulceration (principal)
CPT/HCPCS: 93924

== ENCOUNTER 2023-07-13 06:28 | Day surgery (SDC) | payer MEDICARE, MEDICAID, SELFPAY ==
[2023-06-22 08:16] VITALS: BMI 24.3
[2023-07-13 06:47] LABS: Absolute Lymphocyte Count 1.52 X10^3/uL (0.83-4.51); Absolute Neutrophil Count 2.4 X10^3/uL (2.0-7.7); Basophil# 0.05 X10^3/uL; Eosinophil# 0.39 X10^3/uL; Eosinophils% 8.1 % (0-5); Hematocrit 42.3 % (40-54); Hemoglobin 13.5 g/dL (13.0-16.5); Lymphocyte # 1.52 X10^3/ul (0.83-4.51); Lymphocyte % 31.7 % (19-41); Mean Corp Hgb Conc 31.9 g/dL (32-36); Mean Corpuscular Hgb 30.6 pg (27.0-32.0); Mean Corpuscular Volume 95.9 fL (80-94); Mean Platelet Vol. 9.7 fl (6.2-12.0); Monocyte# 0.45 X10^3/uL; Monocyte% 9.4 % (0-10); NRBC Flagged by Analyzer 0 % (0-5); Neutrophil # 2.38 X10^3/uL (2.7-7.7); Neutrophil % 49.6 % (47-70); Platelet Count 215 K/mm3 (150-450); RBC Distribution Width CV 14.3 % (11.6-14.6); RBC Distribution Width SD 50.6 fl (35.1-43.9); Red Blood Count 4.41 M/mm3 (4.6-6.2); White Blood Count 4.8 K/mm3 (4.4-11.0)
[2023-07-13 06:58] LABS: International Normalized Ratio 1.4; Prothrombin Time (Protime)PT. 17.6 SECONDS (11.7-14.9)
[2023-07-13 07:08] LABS: Anion Gap 1 (5-15); BUN 20 mg/dL (7-18); BUN/Creat Ratio 22.7 RATIO (10-20); Calcium,Total 9.9 mg/dL (8.5-10.1); Chloride 112 mmol/L (98-107); Creatinine, Serum 0.88 mg/dL (0.70-1.30); EST Glomerular Filtration Rate 91 mL/min (>60); Est Glom Filt Rate - Afr Amer 110 mL/min (>60); Estimated Creatinine Clearance 80.65 ml/min; Glucose 180 mg/dL (74-106); Potassium 4.8 mmol/L (3.5-5.1); Sodium Level 139 mmol/L (136-145)
--- NOTE | 2023-07-13 10:22 | HP.PCM_ITS ---
HPI - General HPI Narrative RAPHAEL HADDAD, is a 72 M who presents with left toe wound, PAD, prior profunda-PT bypass. [facility] Medical History Acute and chronic respiratory failure with hypercapnia Acute exacerbation of CHF (congestive heart failure) Acute hypercapnic respiratory failure Adult failure to thrive ZOFIA (acute kidney injury) Anticoagulant long-term use Atherosclerosis of coronary artery without angina pectoris Atherosclerosis of lower extremity with ulceration Bleeding disorder CHF (congestive heart failure) Chronic combined systolic and diastolic CHF (congestive heart failure) Congestive heart failure COPD (chronic obstructive pulmonary disease) COPD (chronic obstructive pulmonary disease) Diabetic foot infection DVT (deep venous thrombosis) Elevated troponin Encephalopathy acute Essential (primary) hypertension Gangrene of toe GERD (gastroesophageal reflux disease) History of non-ST elevation myocardial infarction (NSTEMI) (04/23/20) Hyperlipidemia Inability to walk Ischemic cardiomyopathy Kidney stones [facility] current use of 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 Lumbar spinal stenosis MSSA (methicillin susceptible Staphylococcus aureus) infection Nicotine dependence Non-healing surgical wound (05/01/20) Non-pressure chronic ulcer of other part of left foot with fat layer exposed Non-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 Nonrheumatic aortic (valve) stenosis 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 Obstructive sleep apnea Osteomyelitis Osteomyelitis of toe of right foot Peripheral vascular occlusive disease Pleural effusion, right Recurrent right pleural effusion Scabies infestation Secondary pulmonary arterial hypertension Smoker Sternal wound infection Type 2 diabetes mellitus 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 foot with fat layer exposed Ulcer of right foot with necrosis of bone Home Medications atorvastatin 40 mg tablet 40 mg PO QHS cholesterol 11/12/20 [History Last Taken 09/20/21] lisinopril 5 mg tablet 5 mg PO DAILY HTN 10/08/21 [History Last Taken Unknown] ferrous sulfate 325 mg (65 mg iron) tablet 325 mg PO DAILY 10/29/22 [History Last Taken Unknown] ipratropium 0.5 mg-albuterol 3 mg (2.5 mg base)/3 mL nebulization soln 3 ml inhalation Q4H PRN SOB 10/29/22 [History Last Taken Unknown] acetaminophen 325 mg tablet 650 mg (2 x 325 mg) PO Q6H PRN PRN Pain 1-10 Or Fever >100.7 #0 tabs 11/12/22 [Rx Last Taken Unknown] furosemide 40 mg tablet 40 mg PO DAILY #0 tabs 11/12/22 [Rx Last Taken Unknown] insulin glargine-yfgn 100 unit/mL (3 mL) subcutaneous pen 15 unit (0.15 mL) subcut DAILY #0 mL 11/12/22 [Rx Last Taken Unknown] metoprolol succinate 100 mg tablet,extended release 24 hr 100 mg PO DAILY #0 tabs 11/12/22 [Rx Last Taken Unknown] cyclobenzaprine 10 mg tablet 10 mg PO TID PRN Muscle Pain 12/11/22 [History Last Taken Unknown] insulin lispro 100 unit/mL subcutaneous pen (Humalog KwikPen (U-100) Insulin) unit subcut ACHS 12/11/22 [History Last Taken Unknown] oxycodone 5 mg capsule 5 mg PO BID PRN Pain 12/11/22 [History Last Taken Unknown] clopidogrel 75 mg tablet 75 mg PO DAILY #0 tabs 12/20/22 [Rx Last Taken Unknown] warfarin 5 mg tablet 5 mg PO DAILY 01/05/23 [History Last Taken 07/10/23] Allergy/AdvReac Type Severity Reaction Status Date / Time No Known Allergies Allergy Verified 05/11/23 10:28 Family History Mother Diabetes Heart disease Father Diabetes Surgical History H/O coronary artery bypass surgery (05/01/20) History of angioplasty of peripheral vessel (01/02/10) History of femoropopliteal bypass (2008) History of incision and drainage (09/22/20) History of left heart catheterization (04/23/20) History of lumbar laminectomy History of mechanical aortic valve replacement Social History household members: significant other Smoking Status: Current every day smoker tobacco type: cigarettes alcohol intake: never substance use type: does not use caffeine: No ROS Constitutional Constitutional: Denies chills, fever(s), frequent falls, lethargy or weakness Eyes Eyes: Denies blind spots, change in vision or loss of vision ENT HEENT: Denies bleeding gums, hoarseness or sore throat Cardiovascular Cardiovascular: Denies abdominal pain, bluish discoloration of hand/feet, chest pain with activity, claudication, cold extremities, cyanosis, dyspnea on exertion, erythema on extremities, irregular heart rhythm, leg edema, leg ulcers, numbness in extremities or weakness in extremities Respiratory/Chest Respiratory/Chest: Denies cough, excessive phlegm production, shortness of breath at rest, shortness of breath with exertion or wheezing Gastrointestinal Gastrointestinal: Denies anorexia, change in stool character, constipation, diarrhea, melena or rectal bleeding Genitourinary Genitourinary: Denies dysuria or hematuria Musculoskeletal Musculoskeletal: Denies abnormal gait Integumentary Integumentary: Reports wounds; Denies erythema or non-healing lesions Neurologic Neurologic: Denies abnormal speech, focal weakness, headache(s), loss of vision, numbness, paresthesias or sensory deficit Hematologic/Lymphatic Hematologic/Lymphatic: Denies easy bleeding, easy bruising or lymphadenopathy Vital Signs Vital Signs Vital Signs: Weight Weight: 170 lb Body Mass Index (BMI) 24.3 Physical Exam Const alert, oriented x3, no apparent distress and healthy appearing General Appearance: cooperative; Negative for combative or lethargic Orientation / Consciousness: awake Exam Limitations: no limitations HEENT Head and Scalp: normocephalic and atraumatic Eyes EOMs intact bilaterally General Eye: normal appearance of both eyes Neck full ROM, no lymphadenopathy, thyroid normal and No no carotid bruits General: trachea midline; Negative for lymphadenopathy or tenderness Thyroid: thyroid normal Lymph Lymphatic: Negative for no lymphadenopathy noted Resp normal respiratory effort and no use of accessory muscles Effort and Inspection: Negative for labored, stridor or audible wheezes Cardio regular rate and regular rhythm Peripheral Pulses: femoral pulses present Back/Spine Cervical Spine: cervical ROM normal Extremity full ROM, normal capillary refill and no clubbing, cyanosis or edema Skin no rashes or lesions noted Skin Narrative: left 2nd digit wound Neuro oriented x3, CN's II-XII intact bilaterally, no focal motor deficits and no sensory deficits noted Psych thought process normal, cooperative, affect normal, speech normal and acti vity/motor behavior normal Results Lab / Micro Data 07/13/23 06:34 07/13/23 06:34 Labs: Laboratory Results - last 24 hr 07/13/23 06:34: WBC 4.8, RBC 4.41 L, Hgb 13.5, Hct 42.3, MCV 95.9 H, MCH 30.6, MCHC 31.9 L, RDW Std Deviation 50.6 H, RDW Coeff of Estrada 14.3, Plt Count 215, MPV 9.7, Immature Gran % (Auto) 0.200, Neut % (Auto) 49.6, Lymph % (Auto) 31.7, [place] % (Auto) 9.4, Eos % (Auto) 8.1 H, Baso % (Auto) 1.0, Absolute Neuts (auto) 2.4, Absolute Lymphs (auto) 1.52, Nucleated RBC % 0, PT 17.6 H, INR 1.4, Sodium 139, Potassium 4.8, Chloride 112 H, Carbon Dioxide 26.0, Anion Gap 1 L, BUN 20 H, Creatinine 0.88, Estim Creat Clear Calc 80.65, Est GFR (MDRD) Af Amer 110, Est GFR (MDRD) Non-Af 91, BUN/Creatinine Ratio 22.7 H, Glucose 180 H, Calcium 9.9 Assessment & Plan Assessment/Plan (1) Atherosclerosis of [place] arteries of right leg with ulceration of other part of foot: PLAN: angiogram possible intervention
--- NOTE | 2023-07-13 10:26 | PCM.OPRPT ---
Report of Operation Date of Procedure: 07/13/23 Pre-Operative Diagnosis: atherosclerosis with ulceration left lower extremity Post-Operative Diagnosis: same Surgery/Procedure Performed:: aortogram, left lower extremity runoff IVUS left common femoral, sfa/popliteal, posterior tibial angioplasty posterior tibial Surgeon: Kendrick May Type of Anesthesia: Sedation,Conscious Estimated Blood Loss (mL): 5 Description of Procedure: HPI: Patient is a 72-year-old male with known atherosclerosis bilateral lower extremities with previous ulcerations. He previously underwent a left profunda the posterior tibial bypass with saphenous vein conduit and unknown period of time previously. He has recently developed a second digit ulceration on the left and his noninvasive vascular studies showed noncompressible vessels with mild to moderately diminished waveforms suggesting infrapopliteal disease. He presents now for angiogram with possible intervention. Description of procedure: Upon obtaining form consent and verification correct patient procedure site patient was taken to the [facility] where he was positioned prepped and draped in usual sterile fashion. Timeout was performed conscious sedation administered with Versed and fentanyl. Skin overlying the right common femoral vein was anesthetized 1% lidocaine the vessel accessed under ultrasound guidance with micropuncture needle wire. This was exchanged for micropuncture sheath through which hand-injection iliofemoral angiogram was performed revealing satisfactory position with no extravasation or dissection. Through the micropuncture sheath Bentson wire was advanced into the abdominal aorta puncture sheath exchanged for a short 5 [place] sheath. Through the 5 [place] sheath and Omni Flush cath was advanced into the abdominal aorta and a subtraction aortogram pelvic angiogram was performed. We then navigated into the contralateral leg system advancing our cath into the distal external leg artery. This position sequential subtraction angiography left lower extremity was performed. Multiple oblique views were performed to evaluate the proximal and distal anastomoses with imperfect visualization of both. There was suggestion of some disease of the distal anastomosis as well as a hypodensity in the proximal anastomosis just beyond the reynolds of the graft suggesting there may be a stenosis. Bentson wires and readvanced and the Omni Flush catheter and short 5 [place] sheath exchanged for a 5 [place] 55 Rabie which is advanced into the distal common femoral artery. Patient was in heparinized allowed circulate for 3 minutes after which utilizing a angled glide wire and vanshie 3 catheter we were able to navigate into the profundofemoral artery and ultimately traversed the proximal anastomosis advancing into the distal bypass graft just above the tibial anastomosis. The vanshie catheter was then exchanged for a long quick cross catheter and the Glidewire exchanged for a command 14 wire which was used to navigate the distal anastomosis advancing into the posterior tibial artery. Quick cross catheter was then withdrawn and an 014 intravascular ultrasound probe was advanced over the wire and recorded pullback performed of the posterior tibial artery, the vein bypass graft, the profundofemoral artery and the common femoral artery. This revealed no stenosis at the proximal anastomosis or the adjacent portion of the bypass graft. There also was no evidence of any stenosis throughout the remainder of the bypass graft down to the distal anastomosis at which point there was high-grade stenosis at the juncture of the vein to the posterior tibial artery extending for approximately 3 cm beyond the anastomosis. The stenosis was greater than 50% and in fact was occlusive around the intravascular ultrasound probe. After vessel sizes were obtained based on the ultrasound imaging a 3 mm x 40 AngioSculpt balloon was advanced in the position inflated to nominal for 2 inflations across the area of the lesion for 3 minutes each and then deflated and withdrawn. Repeat angiography revealed brisk contrast transit across the distal anastomosis with improved filling of the adjacent tibial vessels via collaterals which did not opacify initially. Because the original lesion was difficult to visualize with angiography the intravascular shunt probe was readvanced and recorded pullback performed of the area of intervention. This revealed significant improvement in lumen size with no significant residual stenosis no extravasation or dissection was noted on color flow Doppler. See no further need for intervention the ultrasound probe and 014 wire withdrawn and the Bentson wire readvanced. The long 5 [place] sheath then exchanged for a short 5 [place] sheath and a minx closure device deployed with satisfactory stasis after 2 minutes of manual pressure. Patient was then taken to the recovery room for bedrest prior to discharge to home. Radiographic interpretation: Abdominal aorta normal caliber with scattered atherosclerosis but no stenosis. Right common iliac artery with mild calcified atherosclerosis at origin with no stenosis. Internal and external iliac arteries widely patent with no atherosclerosis or stenosis. Right common femoral artery patent with mild calcified atherosclerosis but no stenosis. Profunda femoral small caliber with moderate atherosclerosis and superficial femoral artery at origin with moderate atherosclerosis. Left common iliac artery patent with mild calcified atherosclerosis at origin with no significant stenosis. External iliac artery widely patent with no atherosclerosis or stenosis. Internal iliac artery with greater than 50% stenosis of the origin of the vessel. Common femoral artery with previous endarterectomy patch patent with no significant atherosclerosis or stenosis. Superficial femoral artery occlusion at origin with no reconstitution of the SFA or popliteal. Profundofemoral artery patent with no significant stenosis but mild scattered atherosclerosis in the more distal branches. Vein bypass proximal anastomosis from of the secondary branch of the profunda patent with no significant stenosis. Prior femoral to posterior tibial vein bypass graft widely patent throughout with no stenosis and no significant flow disturbances from the valves. Distal anastomosis with luminal irregularity at the anastomosis and for the first 2 to 3 cm in the posterior tibial artery beyond the first portion of the posterior tibial the vessel is patent with diffuse calcification but no significant stenosis until at the ankle there is abrupt occlusion with large collateral branch filling over to the peroneal artery and giving off branches to fill the foot. There is good collateral flow in the foot but no visualization of the pedal arch. The peroneal artery then fills retrograde towards the proximal calf. There is no visualization of the anterior tibial artery. Intravascular ultrasound evaluation confirms greater than 50% stenosis of the distal anastomosis with no stenosis of the proximal anastomosis confirmed a large caliber healthy appearing bypass graft. Postintervention both in a vessel ultrasound and on angiogram there is significant improvement in lumen caliber at the distal anastomosis with more brisk contrast transit across the bypass graft and into the posterior tibial artery. There is improved filling of the arcades of the foot as well as more brisk filling of the peroneal artery and retrograde flow. In addition we are now able to visualize the anterior tibial artery fill at the proximal extent and have antegrade flow towards the foot via collateral from the posterior tibial artery.
== END 2023-07-13 14:45 | disposition home or self-care (01) ==
LOC: CLSP 06:32
PROVIDERS: PCP Family Medicine; Referring Provider Surgery Trauma Surgery; Visit Provider Surgery Trauma Surgery
DX: E11.621 Type 2 diabetes mellitus with foot ulcer (principal); E11.51 Type 2 diabetes mellitus with diabetic peripheral angiopathy without gangrene; L97.929 Non-pressure chronic ulcer of unspecified part of left lower leg with unspecified severity; J44.9 Chronic obstructive pulmonary disease, unspecified; I11.0 Hypertensive heart disease with heart failure; I50.42 Chronic combined systolic (congestive) and diastolic (congestive) heart failure; E11.59 Type 2 diabetes mellitus with other circulatory complications; E11.42 Type 2 diabetes mellitus with diabetic polyneuropathy; Z79.4 Long term (current) use of insulin; I25.5 Ischemic cardiomyopathy; E78.5 Hyperlipidemia, unspecified; I25.2 Old myocardial infarction; G47.33 Obstructive sleep apnea (adult) (pediatric); F17.210 Nicotine dependence, cigarettes, uncomplicated; Z86.718 Personal history of other venous thrombosis and embolism; Z79.01 Long term (current) use of 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s; Z79.899 Other long term (current) drug therapy; Z95.1 Presence of aortocoronary bypass graft
CPT/HCPCS: 36200; 36245; 36415; 37228; 37252; 37253; 75625; 75710; 76937; 80048; 85025; 85610; 99152; 99153; C1725; C1753; C1760; C1769; C1894; J7040; Q9967; C1887

== ENCOUNTER → 2023-08-19 | Outpatient (CLI) | payer MEDICARE, MEDICAID, SELFPAY ==
[2023-08-19 11:14] LABS: Absolute Lymphocyte Count 1.23 X10^3/uL (0.83-4.51); Absolute Neutrophil Count 2.8 X10^3/uL (2.0-7.7); Basophil# 0.04 X10^3/uL; Basophil% 0.8 % (0-1); Eosinophil# 0.31 X10^3/uL; Eosinophils% 6.5 % (0-5); Hematocrit 36.7 % (40-54); Hemoglobin 11.7 g/dL (13.0-16.5); Lymphocyte # 1.23 X10^3/ul (0.83-4.51); Lymphocyte % 25.9 % (19-41); Mean Corp Hgb Conc 31.9 g/dL (32-36); Mean Corpuscular Hgb 31.5 pg (27.0-32.0); Mean Corpuscular Volume 98.7 fL (80-94); Mean Platelet Vol. 10.2 fl (6.2-12.0); Monocyte# 0.39 X10^3/uL; Monocyte% 8.2 % (0-10); NRBC Flagged by Analyzer 0 % (0-5); Neutrophil # 2.77 X10^3/uL (2.7-7.7); Neutrophil % 58.4 % (47-70); Platelet Count 220 K/mm3 (150-450); RBC Distribution Width CV 14.2 % (11.6-14.6); Red Blood Count 3.72 M/mm3 (4.6-6.2); White Blood Count 4.8 K/mm3 (4.4-11.0)
[2023-08-19 11:18] LABS: Vitamin D,25 Hydroxy 25.8 ng/mL
[2023-08-19 11:22] LABS: Hemoglobin A1c 6.8 % (3.8-5.6)
[2023-08-19 11:23] LABS: AST(SGOT) 15 U/L (15-37); Alanine Aminotransfer ALT/SGPT 14 U/L (16-61); Albumin, Serum 3.7 g/dL (3.2-5.0); Alkaline Phosphatase 128 U/L (45-117); Anion Gap 3 (5-15); BUN 14 mg/dL (7-18); BUN/Creat Ratio 15.9 RATIO (10-20); Calcium,Total 8.8 mg/dL (8.5-10.1); Chloride 114 mmol/L (98-107); Cholesterol 155 mg/dL (200); Creatinine, Serum 0.88 mg/dL (0.70-1.30); EST Glomerular Filtration Rate 91 mL/min (>60); Est Glom Filt Rate - Afr Amer 110 mL/min (>60); Globulin 3.6 g/dL (2.2-4.2); Glucose 115 mg/dL (74-106); High Density Lipoprotein 54 mg/dL; Potassium 3.8 mmol/L (3.5-5.1); Protein, Total 7.3 g/dL (6.4-8.2); Sodium Level 141 mmol/L (136-145); Thyroid Stim Hormone (TSH) 1.82 uIU/mL (0.358-3.74); Triglycerides 91 mg/dL; Very Low Density Lipoprotein 18 mg/dL (5-40)
[2023-08-19 11:28] LABS: International Normalized Ratio 1.5; Prothrombin Time (Protime)PT. 18.6 SECONDS (11.7-14.9)
== END | disposition home or self-care (01) ==
LOC: POLAB3 09:45
PROVIDERS: PCP Family Medicine; Visit Provider Family Medicine Geriatric Medicine
DX: E11.65 Type 2 diabetes mellitus with hyperglycemia (principal); I82.409 Acute embolism and thrombosis of unspecified deep veins of unspecified lower extremity; E55.9 Vitamin D deficiency, unspecified; E78.5 Hyperlipidemia, unspecified; I10 Essential (primary) hypertension
CPT/HCPCS: 36415; 80053; 80061; 82306; 83036; 84443; 85025; 85610

== ENCOUNTER → 2023-08-25 | Outpatient (CLI) | payer MEDICARE, MEDICAID, SELFPAY ==
--- NOTE | 2023-08-25 09:54 | ART_ITS ---
Reason For Study: S/P Lt TECHNOLOGIST DEVELOPMENT angioplasty, Rt SFA/Goivanny stent, T/P trunk/PeroA angioplasty Procedure A bilateral lower extremity continuous wave Doppler with analog waveform analysis and ankle brachial indexes. Left Segmental Pressures Left brachial= 132mmHg. Left posterior tibial artery = 187mmHg. Left dorsalis pedis artery = 142mmHg. Left digit = 52 mmHg. The left dorsalis pedis waveforms are monophasic. The left posterior tibial artery waveforms are biphasic. Right Segmental Pressures Right brachial= 127mmHg. Right posterior tibial artery = 105mmHg. Right dorsalis pedis artery = 110mmHg. The right dorsalis pedis waveforms are monophasic. The right posterior tibial artery waveforms are biphasic. Indices The right ankle brachial index by the dorsalis pedis is 0.83. The right ankle brachial index by the posterior tibial artery is 0.80. The left ankle brachial index by the dorsalis pedis is 1.08. The left ankle brachial index by the posterior tibial artery is 1.42. The left digital-brachial index is 0.39. VL/Ankle Brachial Index Interpretation Summary Right HERNESTO 0.83, moderate arterial insufficiency. Doppler/PVR waveforms of the r ight ankle moderately diminished Left HERNESTO 1.42, artificially elevated. Doppler/PVR waveforms of the left ankle m oderately diminished Ordering Physician: Noemí Amos Referring Physician: Feliciano Pace Performed By: Maricel Delcid RVT
--- NOTE | 2023-08-25 09:54 | ADU_ITS ---
Reason For Study: S/P Lt TEST SPECIALIST angioplasty, Rt SFA/Giovanny stent, T/P trunk/PeroA angioplasty Right Velocities Left Velocities Ext. Iliac Artery, dist = 137.8 cm./sec. Ext Iliac Artery, dist = 94.2 cm./sec. Common Femoral Artery, mid = 157.8 cm./sec. Profunda Femoral Artery = 138.1 cm./sec. Supf Femoral Artery, prox = 127.1 cm./sec. SPOOLER OPERATOR AUTOMATIC mid, Prox to bypass, 103.9 cm/sec. SFA prox/mid, prox to stent, 85.7 cm/sec. SFA and Giovanny are occluded. SFA mid, Prox stent, 109.5 cm/sec. SFA distal, Mid stent, 78.5 cm/sec. Bypass Graft, SPOOLER OPERATOR AUTOMATIC-TEST SPECIALIST mid Giovanny prox, Distal stent, 113.9 cm/sec. Prox anstomosis, 122.7 cm/sec. Giovanny mid, distal to stent, 76.6 cm/sec. Prox graft, 71.3 cm/sec. Profunda Femoral Artery = 254.6 cm./sec. Mid graft, 35.8 cm/sec. Peroneal Artery, prox = 111.2 cm./sec. Distal graft, 52.8 cm/sec. Peroneal Artery, mid = 80.2 cm./sec. Distal anastomosis, 45.3 cm/sec. Peroneal Artery,dist = 102.1 cm./sec. Ant. Tibial Artery, prox = 12.5 cm./sec. TEST SPECIALIST mid, distal to bypass, 226 cm/sec. Ant. Tibial Artery, mid = 14.6 cm./sec. TEST SPECIALIST distal, 120.5 cm/sec. Ant. Tibial Artery, dist = 14.1 cm./sec. PeroA, No flow prox-mid. TEST SPECIALIST, No flow throughout. PeroA distal, retrograde flow. MAGNUS, No flow throughout. Procedure Exam performed in department. VL/US Art Duplex Bilat Lower Ext Interpretation Summary Right lower extremity with occluded posterior tibial artery. Vessels otherwise with no focal stenosis identified but with gradually diminishing waveforms popliteal to infra popliteal. Left lower extremity femoral-PT bypass patent with mildly diminished velocities isolated to mid graft. Posterior tibial artery with stenosis mid vessel. Anterior tibial artery occlusion, peroneal artery with occlusion proximally and retrograde flow distally. Ordering Physician: Noemí Amos Referring Physician: Feliciano Pace Performed By: Maricel Delcid RVT
== END | disposition home or self-care (01) ==
LOC: CVS 09:51
PROVIDERS: PCP Family Medicine; Referring Provider Physician Assistant; Visit Provider Physician Assistant
DX: I70.25 Atherosclerosis of native arteries of other extremities with ulceration (principal); E11.621 Type 2 diabetes mellitus with foot ulcer; L97.529 Non-pressure chronic ulcer of other part of left foot with unspecified severity; S98.131A Complete traumatic amputation of one right lesser toe, initial encounter; Z48.812 Encounter for surgical aftercare following surgery on the circulatory system
CPT/HCPCS: 93922; 93925

== ENCOUNTER → 2023-10-24 | Outpatient (CLI) | payer MEDICARE, MEDICAID, SELFPAY ==
[2023-10-24 15:03] LABS: Absolute Lymphocyte Count 1.28 X10^3/uL (0.83-4.51); Absolute Neutrophil Count 6.6 X10^3/uL (2.0-7.7); Basophil# 0.04 X10^3/uL; Basophil% 0.4 % (0-1); Eosinophil# 0.27 X10^3/uL; Hematocrit 31.6 % (40-54); Hemoglobin 10.4 g/dL (13.0-16.5); Lymphocyte # 1.28 X10^3/ul (0.83-4.51); Lymphocyte % 14.4 % (19-41); Mean Corp Hgb Conc 32.9 g/dL (32-36); Mean Corpuscular Hgb 32.3 pg (27.0-32.0); Mean Corpuscular Volume 98.1 fL (80-94); Mean Platelet Vol. 10.3 fl (6.2-12.0); Monocyte# 0.65 X10^3/uL; Monocyte% 7.3 % (0-10); NRBC Flagged by Analyzer 0 % (0-5); Neutrophil # 6.63 X10^3/uL (2.7-7.7); Neutrophil % 74.6 % (47-70); Platelet Count 192 K/mm3 (150-450); RBC Distribution Width CV 12.8 % (11.6-14.6); RBC Distribution Width SD 45.8 fl (35.1-43.9); Red Blood Count 3.22 M/mm3 (4.6-6.2); White Blood Count 8.9 K/mm3 (4.4-11.0)
[2023-10-24 15:31] LABS: ALB/GLOB Ratio 1.1 RATIO (0.9-2.4); AST(SGOT) 20 U/L (15-37); Alanine Aminotransfer ALT/SGPT 18 U/L (16-61); Albumin, Serum 3.8 g/dL (3.2-5.0); Alkaline Phosphatase 131 U/L (45-117); Anion Gap 5 (5-15); BUN 37 mg/dL (7-18); BUN/Creat Ratio 18.8 RATIO (10-20); Calcium,Total 8.8 mg/dL (8.5-10.1); Chloride 101 mmol/L (98-107); Creatinine, Serum 1.97 mg/dL (0.70-1.30); EST Glomerular Filtration Rate 36 mL/min (>60); Est Glom Filt Rate - Afr Amer 43 mL/min (>60); Globulin 3.6 g/dL (2.2-4.2); Glucose 52 mg/dL (74-106); Potassium 5.5 mmol/L (3.5-5.1); Protein, Total 7.4 g/dL (6.4-8.2); Sodium Level 131 mmol/L (136-145)
== END | disposition home or self-care (01) ==
LOC: LAB 13:59
PROVIDERS: PCP Family Medicine Geriatric Medicine; Referring Provider Family Medicine Geriatric Medicine; Visit Provider Family Medicine Geriatric Medicine
DX: E11.65 Type 2 diabetes mellitus with hyperglycemia (principal); E78.5 Hyperlipidemia, unspecified
CPT/HCPCS: 36415; 80053; 85025

== ENCOUNTER → 2023-10-28 | Outpatient (CLI) | payer MEDICARE, MEDICAID, SELFPAY ==
[2023-10-28 13:20] LABS: Anion Gap 6 (5-15); BUN 20 mg/dL (7-18); BUN/Creat Ratio 17.1 RATIO (10-20); Chloride 104 mmol/L (98-107); Creatinine, Serum 1.17 mg/dL (0.70-1.30); EST Glomerular Filtration Rate 65 mL/min (>60); Est Glom Filt Rate - Afr Amer 79 mL/min (>60); Glucose 173 mg/dL (74-106); Potassium 4.2 mmol/L (3.5-5.1); Sodium Level 137 mmol/L (136-145)
== END | disposition home or self-care (01) ==
PROVIDERS: PCP Family Medicine Geriatric Medicine; Visit Provider Family Medicine Geriatric Medicine
DX: I50.22 Chronic systolic (congestive) heart failure (principal)
CPT/HCPCS: 36415; 80048

== ENCOUNTER → 2023-11-02 | Outpatient (CLI) | payer MEDICARE, MEDICAID, SELFPAY ==
--- NOTE | 2023-11-02 09:39 | ART_ITS ---
Reason For Study: S/P Lt SCORER SINGLE angioplasty, Rt SFA/Giovanny stent, T/P trunk/PeroA angioplasty Procedure A bilateral lower extremity continuous wave Doppler with analog waveform analysis and ankle brachial indexes. Left Segmental Pressures Left brachial= 157mmHg. Left posterior tibial artery = >254mmHg. Left dorsalis pedis artery = >254mmHg. Left digit = 77 mmHg. The left dorsalis pedis waveforms are monophasic. The left posterior tibial artery waveforms are biphasic. Right Segmental Pressures Right brachial= 163mmHg. Right posterior tibial artery = 165mmHg. Right dorsalis pedis artery = 171mmHg. The right dorsalis pedis waveforms are biphasic. The right posterior tibial artery waveforms are biphasic. Indices The right ankle brachial index by the dorsalis pedis is 1.05. The right ankle brachial index by the posterior tibial artery is 1.01. The left ankle brachial index by the dorsalis pedis is NC. The left ankle brachial index by the posterior tibial artery is NC. The left digital-brachial index is 0.47. VL/Ankle Brachial Index Interpretation Summary Right HERNESTO 1.01, normal. Doppler/PVR waveforms of the right ankle mildly diminis hed at rest. Left HERNESTO not able to be obtained due to non-compressible vessels. Doppler/PVR w aveforms of the left ankle mildly diminished at rest. Ordering Physician: Noemí Amos Referring Physician: Feliciano Pace Performed By: Maricel Delcid RVT and Student
--- NOTE | 2023-11-02 09:39 | ADU_ITS ---
Reason For Study: S/P Lt RUN LEAD angioplasty, Rt SFA/Giovanny stent, T/P trunk/PeroA angioplasty Right Velocities Left Velocities Ext. Iliac Artery, dist = 154.5 cm./sec. Internal Iliac Artery, prox = 161.6 cm./sec. Common Femoral Artery, mid = 125.3 cm./sec. TRAINING PROGRAM ASSISTANT mid, Prox to bypass, 96.1 cm/sec. Supf Femoral Artery, prox = 120.4 cm./sec. SFA and Giovanny are occluded. SFA prox/mid, prox to stent, 52.6 cm/sec. SFA mid, Prox stent, 133.7 cm/sec. Bypass Graft, TRAINING PROGRAM ASSISTANT-RUN LEAD mid SFA distal, Mid stent, 65.8 cm/sec. Prox anstomosis, 127.1 cm/sec. Giovanny prox, Distal stent, 115.5 cm/sec. Prox graft, 78.8 cm/sec. Giovanny mid, distal to stent, 109.5 cm/sec. Mid graft, 33.1cm/sec. Profunda Femoral Artery = 136.8 cm./sec. Distal graft, 43.5 cm/sec. Peroneal Artery, prox = 38.7 cm./sec. Distal anastomosis, 41.8 cm/sec. Peroneal Artery, mid = 88.3 cm./sec. Peroneal Artery,dist = 111.1 cm./sec. RUN LEAD mid, distal to bypass, 212.8 cm/sec. Ant. Tibial Artery, prox = 166 cm./sec. RUN LEAD distal, 212.4 cm/sec. Ant. Tibial Artery, mid = 90.4 cm./sec. PeroA, No flow prox-mid. Ant. Tibial Artery, dist = 101.4 cm./sec. PeroA distal, retrograde flow. RUN LEAD, No flow throughout. MAGNUS, No flow throughout. Profunda Femoral Artery = 66.8 cm./sec. Procedure Exam performed in department. /US Art Duplex Bilat Lower Ext Interpretation Summary Right SFA/popliteal stent patent with normal velocities and no evidence of sten osis. Left femoral-PT bypass patent with diminished velocity distal graft and stenosi s in posterior tibial artery distal Ordering Physician: Noemí Amos Referring Physician: Feliciano Pace Performed By: Maricel Delcid RVT and Student
== END | disposition home or self-care (01) ==
PROVIDERS: PCP Family Medicine; Referring Provider Physician Assistant; Visit Provider Physician Assistant
DX: I70.25 Atherosclerosis of native arteries of other extremities with ulceration (principal); Z48.812 Encounter for surgical aftercare following surgery on the circulatory system
CPT/HCPCS: 93922; 93925

== ENCOUNTER 2023-11-04 06:53 | Day surgery (SDC) | payer MEDICARE, MEDICAID, SELFPAY ==
[2023-10-25 14:38] LABS: Anion Gap 6 (5-15); BUN 35 mg/dL (7-18); BUN/Creat Ratio 21.2 RATIO (10-20); Calcium,Total 9.2 mg/dL (8.5-10.1); Chloride 106 mmol/L (98-107); Creatinine, Serum 1.65 mg/dL (0.70-1.30); EST Glomerular Filtration Rate 44 mL/min (>60); Est Glom Filt Rate - Afr Amer 53 mL/min (>60); Glucose 136 mg/dL (74-106); Potassium 4.7 mmol/L (3.5-5.1); Sodium Level 135 mmol/L (136-145)
--- NOTE | 2023-11-04 | BON_PTH ---
PATIENT: RAPHAEL HADDAD LOC: [facility] [place] U#:[id number] AGE/SX: 72/M ROOM: RE11/04/[address]: Dr. Yusuf Lozano DPM : 1950 BED: DIS: 11/04/2023 SPEC #: [id number] RECD: 11/04/23 12:46 STATUS: RICH REQ #: [id number] MATIAS: 11/04/23 00:[address]: Yusuf Lozano DEPT: SURGICAL PATHOLOGY RECD BY: Jesús Villegas ENTERED: 11/04/23 12:47 SP TYPE: Bone OTHR DR: Dr. Saurabh Hernandez MD Tissues: A - Bone of foot, NOS B - Bone of foot, NOS Procedures: Decalcification bone/plaque Surgery Specimen Level III HEADER OPERATION: Left second toe amputation PRE-OP DIAGNOSIS: Osteomyelitis left second toe TISSUE SUBMITTED: A- Clearance fragment left second toe, B- Left second toe amputation MICROSCOPIC DIAGNOSIS A. Clearance fragment left second toe, excision: Pieces of bone with reactive changes, negative for acute osteomyelitis. B. Left second toe, amputation: Focal area of granulation tissue reaction. Underlying bone with mild chronic inflammation and reactive changes, negative for acute osteomyelitis. [facility] 11/09/2023 MICROSCOPIC DESCRIPTION Slides are reviewed. GROSS DESCRIPTION A. Received in fixative is one container labeled with the patient's name and designated Clearance fragment left second toe. The specimen consists of two pieces of bone measuring in aggregate 1.0 x 1.5 x 0.5cm. The entire specimen is submitted in one cassette after decalcification. B. Received in fixative is one container labeled with the patient's name and designated Left second toe amputation. The specimen consists of a portion of toe measuring 3.5 x 2.0 x 1.5cm. Nail appears to be atrophic with focal ulceration. Orthopedic Shoe Fitter sections are submitted in two cassettes as follows: 1- nail including area of ulceration, 2- bone after decalcification. [facility] 11/04/2023 TC:3 CPT: 62217l2,86054i7
[2023-11-04 07:16] LABS: INR Fingerstick 1.7; Prothrombin Time Fingerstick 17.9 SEC (11.7-14.9)
[2023-11-04 07:46] VITALS: BP 130/72; PULSE 85; RESP 20; TEMP 36.3; O2SAT 100; BMI 26.9
[2023-11-04] MEDS: Lactated Ringers 1,000 ML 15 ML IV (07:56)
[2023-11-04] MEDS: Cefazolin 2 GM in 0.9% Normal Saline (100mL Bag) 100 ML IV (09:19)
[2023-11-04 09:51] LABS: Bedside Glucose 119 mg/dL (74-106)
[2023-11-04] MEDS: Bupivacaine Mpf 0.5% 30 ML VIAL (09:55)
--- NOTE | 2023-11-04 10:03 | OP.PCM_ITS ---
Report of Operation Date of Procedure: 11/04/23 Pre-Operative Diagnosis: Osteomyelitis left 2nd toe Post-Operative Diagnosis: Same Surgery/Procedure Performed:: Amputation of left 2nd toe Surgeon: Yusuf Lozano pillowcase cutter: Katelynn Type of Anesthesia: Local and MAC Specimen's removed: 1. Amputated left 2nd toe sent to pathology 2. Bone from left distal phalanx left 2nd toe sent to microbiology 3. Clearance fragment left 2nd toe proximal phalanx sent to pathology and microbiology Estimated Blood Loss (mL): 12mL Description of Procedure: Indications: 72 year old gentleman with hx of many medical problems has a chronic nonhealing ulcer on the distal left 2nd toe with chronic osteomyelitis. Discussed options with patient - antibiotics, and wound care, try to save the toe vs amputation of the toe but it has been nonhealing for quite a long time - he elected to proceed with amputation. Reviewed procedure, possible benefits vs risks, goals, expectations and estimated healing time. There is risks of nonhealing, need for further surgery, loss of limb, and other risks due to diabetes, neuropathy, and pad. He expressed understanding, and all of his questions were answered. He was able to repeat back. The consent forms were reviewed with him and he freely signed them. No guarantees were given nor implied. No warranties were given. Also of note he does have peripheral vascular disease, and discussed with Dr. May vascular surgeon and appears patient has enough blood flow to heal. Operative procedure: He was brought back to the operating room and was placed on the operating room table in the supine position. The patient was secured to operating table with a safety belt around his waist. He received MAC anesthesia per the anesthesia team. The patient received 2 grams of IV cephalexin for antibiotic prophylaxis. The skin was cleansed with 70% Isopropyl alcohol and a left 2nd toe nerve block was completed using a total of 11mL of 0.5% Bupivacaine plain. The left foot was scrubbed, prepped, and draped in the usual aseptic fashion. He is already on IV antibiotic Further attention was directed to the left 2nd toe - there was a distal wound to the toe which probed to bone, there was no erythema or drainage - it was dry, there was some edema to the toe. A timeout was performed and the patient was properly identified and surgical plan confirmed. An incision was made around the toe at 2nd toe at the level of the proximal phalanx head using a 15 blade. This was made down to bone and in a way a flap was made. The toe was amputated at the proximal interphalangeal joint and the head of the proximal phalanx and shaft of the proximal phalanx were resected using a bone cutting forceps. The bone of the distal phalanx was softer than normal, a bone culture was obtained of the distal phalanx and sent to microbiology. The toe was amputated as noted above and amputated part of the toe was sent to pathology. The head of the proximal phalanx appeared healthy and viable, was hard and white, and bone culture was obtained from the proximal phalanx using a bone cutting rongeur and sent to microbiology and pathology. The site was flushed out with copious amounts of normal saline solution. The remaining tissues appeared healing and viable. The skin was reapproximated using 3-0 Prolene. A dressing was applied which consisted of betadine soaked adaptic, 4x4 gauze, kerlix and jesu dressing. No tourniquet was used. There was bleeding, but not significant. He tolerated the procedure well with no complications. He was transported from the operating room to the recovery room with vital signs stable and in good condition. Post op orders were placed and discharged instructions were reviewed with patient. He is going to follow up as an outpatient. Grafts/Implants Used: None Complications None
--- NOTE | 2023-11-04 10:04 | DCINST_ITS ---
Discharge Instructions Diet Discharge Diet: Light diet - advance as tolerated Activity Discharge Activity: May Not Drive Weight Bearing Status: No weight bearing (Avoid weight on left foot as much as possible. If you have to put weight on left foot put weight on heel, avoid weight on toes) Dressing / Incision Call your doctor if your incision/area has: Sudden Increased Bleeding and Foul Smelling Discharge Call your doctor if you observe: Fever of 101 or Higher, Shortness of breath, Chest pain, Increased palpitations (irregular heartbeat), Calf discomfort and Uncontrolled pain Change Dressing in: leave in place till F/U Remove Dressing in: leave in place till F/U Cleanse incision/area with: Keep Dressing Clean & Dry Follow Up Care Please Follow Up With: Yusuf Lozano DPM When: 1 week, sooner if needed Test Results: Test results from this visit will be discussed in further detail at your follow- up appointment, if applicable. Discharge Plan Admission Attending Provider: Yusuf Lozano Primary Care Provider: Saurabh Hernandez Chi Discharge Orders/Prescriptions Prescriptions: No Action warfarin 5 mg tablet 5 mg PO DAILY pantoprazole 40 mg tablet,delayed release (DR/EC) 40 mg PO QDAY losartan 100 mg tablet 100 mg PO DAILY cholecalciferol (vitamin D3) 25 mcg (1,000 unit) capsule 25 mcg PO DAILY atorvastatin 40 mg Tablet 40 mg PO DAILY ferrous sulfate 325 mg (65 mg iron) tablet 325 mg PO DAILY furosemide 40 mg Tablet 40 mg PO DAILY Qty: 0 0RF cyclobenzaprine 10 mg Tablet 10 mg PO TID PRN (Reason: Muscle Pain) insulin lispro [Humalog KwikPen Insulin] 100 unit/mL Insulin Pen 15 unit SUBCUT ACHS Rx Instructions: SLIDING SCALE Centrum Silver Men [id number] mcg tablet 1 tab PO DAILY aspirin [Adult Aspirin Regimen] 81 mg tablet,delayed release (DR/EC) 81 mg PO DAILY mirtazapine 7.5 mg tablet 7.5 mg PO QHS gabapentin 100 mg capsule 100 mg PO BID metformin 500 mg tablet 500 mg PO BID metoprolol succinate 25 mg tablet extended release 24 hr 25 mg PO DAILY Tradjenta 5 mg tablet 5 mg PO DAILY doxepin 50 mg capsule 50 mg PO DAILY insulin glargine-yfgn 100 unit/mL (3 mL) Insulin Pen 15 unit subcut QHS Referrals / Follow Up: Saurabh Hernandez Chi, MD [Primary Care Provider] - Disposition Disposition (needs filled in before D/C Order can be placed): Home, Self Care
[2023-11-04 10:05] VITALS: BP 130/72; BP 162/79; PULSE 87; RESP 16; TEMP 36.1; O2SAT 99
[2023-11-04 10:10] VITALS: BP 130/72; BP 133/80; PULSE 86; RESP 16; O2SAT 99
[2023-11-04 10:15] VITALS: BP 130/72; BP 150/72; PULSE 86; RESP 16; O2SAT 99
--- NOTE | 2023-11-04 10:15 | RAD_ITS ---
HISTORY: post op. TECHNIQUE: XR Foot Min 3 Views. COMPARISON: None. FINDINGS: BONES : Partial amputation of the second toe with a residual proximal phalangeal stump. Calcaneal enthesopathy present. JOINTS: Mild medial subluxation of the fourth proximal interphalangeal joint. Mild degenerative change. SOFT TISSUES: Mild soft tissue swelling. RAD/Foot min 3 Views IMPRESSION: Partial amputation of the left second toe. Mild degenerative change of the left foot with mild subluxation of the fourth PIP joint. Electronically Signed: Caprice Hanson MD at 9:48 EDT ,
[2023-11-04 10:27] VITALS: BP 130/72; BP 143/79; PULSE 85; RESP 18; TEMP 36.4; O2SAT 99
[2023-11-04 10:53] VITALS: BP 130/72
== END 2023-11-04 11:07 | disposition home or self-care (01) ==
LOC: SDC 06:55 → AC 06:55
PROVIDERS: PCP Family Medicine Geriatric Medicine; Referring Provider Podiatrist; Visit Provider Podiatrist
PROC: (CPT 28825; principal; 2023-11-04 09:15)
DX: M86.9 Osteomyelitis, unspecified (principal); I50.9 Heart failure, unspecified; Z79.4 Long term (current) use of insulin; E11.69 Type 2 diabetes mellitus with other specified complication; E55.9 Vitamin D deficiency, unspecified; K21.9 Gastro-esophageal reflux disease without esophagitis; E78.5 Hyperlipidemia, unspecified; Z79.82 Long term (current) use of aspirin; Z79.899 Other long term (current) drug therapy; Z79.84 Long term (current) use of oral hypoglycemic drugs; Z79.01 Long term (current) use of 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s; Z86.718 Personal history of other venous thrombosis and embolism; Z95.2 Presence of prosthetic heart valve; Z95.1 Presence of aortocoronary bypass graft
CPT/HCPCS: 28825; 01470; 36415; 36416; 73630; 80048; 82962; 85610; 87015; 87070; 87075; 87077; 87102; 87116; 87176; 87186; 87205; 87206; 88304; 88311; J7120

== ENCOUNTER → 2023-11-17 | Outpatient (CLI) | payer MEDICARE, MEDICAID, SELFPAY ==
[2023-11-17 14:20] LABS: Absolute Neutrophil Count 5.2 X10^3/uL (2.0-7.7); Basophil# 0.05 X10^3/uL; Basophil% 0.6 % (0-1); Eosinophil# 0.35 X10^3/uL; Eosinophils% 4.4 % (0-5); Hematocrit 32.8 % (40-54); Hemoglobin 10.8 g/dL (13.0-16.5); Lymphocyte % 20.1 % (19-41); Mean Corp Hgb Conc 32.9 g/dL (32-36); Mean Corpuscular Hgb 32.4 pg (27.0-32.0); Mean Corpuscular Volume 98.5 fL (80-94); Mean Platelet Vol. 10.2 fl (6.2-12.0); Monocyte# 0.69 X10^3/uL; Monocyte% 8.7 % (0-10); NRBC Flagged by Analyzer 0 % (0-5); Neutrophil # 5.22 X10^3/uL (2.7-7.7); Neutrophil % 65.7 % (47-70); Platelet Count 214 K/mm3 (150-450); RBC Distribution Width CV 13.6 % (11.6-14.6); RBC Distribution Width SD 48.4 fl (35.1-43.9); Red Blood Count 3.33 M/mm3 (4.6-6.2)
[2023-11-17 14:37] LABS: Vitamin D,25 Hydroxy 30.6 ng/mL
[2023-11-17 14:50] LABS: Hemoglobin A1c 6.3 % (3.8-5.6)
[2023-11-17 17:22] LABS: ALB/GLOB Ratio 1.1 RATIO (0.9-2.4); AST(SGOT) 19 U/L (15-37); Alanine Aminotransfer ALT/SGPT 18 U/L (16-61); Albumin, Serum 3.8 g/dL (3.2-5.0); Alkaline Phosphatase 125 U/L (45-117); Anion Gap 7 (5-15); BUN 22 mg/dL (7-18); BUN/Creat Ratio 16.9 RATIO (10-20); Calcium,Total 8.6 mg/dL (8.5-10.1); Chloride 102 mmol/L (98-107); Cholesterol 136 mg/dL (200); EST Glomerular Filtration Rate 58 mL/min (>60); Est Glom Filt Rate - Afr Amer 70 mL/min (>60); Globulin 3.5 g/dL (2.2-4.2); Glucose 168 mg/dL (74-106); High Density Lipoprotein 42 mg/dL; Potassium 4.5 mmol/L (3.5-5.1); Protein, Total 7.3 g/dL (6.4-8.2); Sodium Level 133 mmol/L (136-145); Thyroid Stim Hormone (TSH) 2.78 uIU/mL (0.358-3.74); Triglycerides 148 mg/dL; Very Low Density Lipoprotein 30 mg/dL (5-40)
== END | disposition home or self-care (01) ==
LOC: POLAB3 13:12
PROVIDERS: PCP Family Medicine Geriatric Medicine; Visit Provider Family Medicine Geriatric Medicine
DX: E11.65 Type 2 diabetes mellitus with hyperglycemia (principal); I10 Essential (primary) hypertension; E55.9 Vitamin D deficiency, unspecified; E78.5 Hyperlipidemia, unspecified
CPT/HCPCS: 36415; 80053; 80061; 82306; 83036; 84443; 85025

== ENCOUNTER → 2023-12-08 | Outpatient (CLI) | payer MEDICARE, MEDICAID, SELFPAY ==
--- NOTE | 2023-12-08 13:42 | ADUL_ITS ---
Reason For Study: HX Lt PFA/MARINE GEOLOGIST BPG Left Velocities Ext Iliac Artery, dist = 161.3 cm./sec. RESOURCE SPECIALIST TEACHER = 132.2 cm/sec Profunda Femoral Artery = 151.6 cm./sec. SFA and Giovanny are occluded. Bypass Graft noted, PFA-MARINE GEOLOGIST mid Prox anastomosis = PSV - 151.6 cm/sec. Prox graft - PSV 74.7 cm/sec. Mid graft (thigh) = PSV - 35.8 cm/sec. BPG at knee = PSV - 35.8 cm/sec. BPG dist (prox calf) = PSV - 39.6 cm/sec. BPG Distal Anastomosis (mid calf) = PSV 96.4cm/sec MARINE GEOLOGIST mid, distal to bypass= PSV - 144.7 cm/sec. MARINE GEOLOGIST distal = PSV - 98.6 cm/sec. PeroA, No flow prox-mid. PeroA distal, retrograde flow. MAGNUS Prox = PSV - 65.0 cm/sec MAGNUS Mid = PSV - 71.1 cm/sec MAGNUS Dist = PSV - 55.1 cm/sec. Procedure The exam was diagnostic. Exam performed in department. VL/US Art Duplex Unilat Lower Ext Interpretation Summary Patent left femoral-posterior tibial bypass with diminished velocities. Distal anastomosis and posterior tibial arteries with >50% stenosis. Ordering Physician: Kendrick May Referring Physician: Saurabh Hernandez Chi Performed By: Santiago Brar, RVT
--- NOTE | 2023-12-08 13:42 | ART_ITS ---
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 Left Segmental Pressures Left brachial= 108mmHg. Left posterior tibial artery = 81mmHg. Left dorsalis pedis artery = 133mmHg. Left digit = 70 mmHg. The left posterior tibial artery waveforms are biphasic. The left dorsalis pedis waveforms are biphasic. Right Segmental Pressures Right brachial= 113mmHg. Right dorsalis pedis artery = 86mmHg. Right posterior tibial artery = 104mmHg. The right posterior tibial artery waveforms are biphasic. The right dorsalis pedis waveforms are biphasic. Indices The right ankle brachial index by the posterior tibial artery is 0.92. The right ankle brachial index by the dorsalis pedis is 0.76. The left ankle brachial index by the posterior tibial artery is 0.72. The left ankle brachial index by the dorsalis pedis is 1.18. The left digital-brachial index is 0.62. VL/Ankle Brachial Index Interpretation Summary Right HERNESTO 0.92, mild arterial insufficiency. Doppler/PVR waveforms of the right ankle mildly diminished at rest. Left HERNESTO 1.18, normal. Doppler/PVR waveforms of the left ankle mildly diminishe d at rest. Ordering Physician: Kendrick May Referring Physician: Saurabh Hernandez Chi Performed By: Santiago Brar RVT
== END | disposition home or self-care (01) ==
LOC: CVS 13:39
PROVIDERS: PCP Family Medicine Geriatric Medicine; Referring Provider Surgery Trauma Surgery; Visit Provider Surgery Trauma Surgery
DX: I70.25 Atherosclerosis of native arteries of other extremities with ulceration (principal)
CPT/HCPCS: 93922; 93926

== ENCOUNTER 2023-12-21 10:23 | Day surgery (SDC) | payer MEDICARE, MEDICAID, SELFPAY ==
[2023-12-20 07:29] VITALS: BMI 26.8
[2023-12-21] VITALS (9 sets, daily range): BP systolic 133–159; BP diastolic 65–77; PULSE 88–98; RESP 18; TEMP 36.7; O2SAT 94–100
[2023-12-21 10:54] LABS: Hematocrit 33.7 % (40-54); Mean Corp Hgb Conc 32.6 g/dL (32-36); Mean Platelet Vol. 9.8 fl (6.2-12.0); Platelet Count 224 K/mm3 (150-450); RBC Distribution Width CV 13.6 % (11.6-14.6); RBC Distribution Width SD 48.5 fl (35.1-43.9); Red Blood Count 3.44 M/mm3 (4.6-6.2); White Blood Count 6.5 K/mm3 (4.4-11.0)
[2023-12-21 11:05] LABS: International Normalized Ratio 1.9; Prothrombin Time (Protime)PT. 21.7 SECONDS (11.7-14.9)
[2023-12-21 11:13] LABS: Anion Gap 6 (5-15); BUN 19 mg/dL (7-18); BUN/Creat Ratio 19.9 RATIO (10-20); Calcium,Total 9.5 mg/dL (8.5-10.1); Chloride 105 mmol/L (98-107); Creatinine, Serum 0.96 mg/dL (0.70-1.30); EST Glomerular Filtration Rate 83 mL/min (>60); Est Glom Filt Rate - Afr Amer 100 mL/min (>60); Estimated Creatinine Clearance 72.87 ml/min; Glucose 169 mg/dL (74-106); Potassium 4.4 mmol/L (3.5-5.1); Sodium Level 136 mmol/L (136-145)
--- NOTE | 2023-12-21 12:47 | HP.PCM_ITS ---
HPI - General HPI Narrative RAPHAEL HADDAD, is a 73 M who presents with recurrent stenosis distal to prior tibial bypass. Prior angioplasty performed about 6 months ago, now with increased velocities and slow flow in graft. No current foot wound concerns. [facility] Medical History Acute and chronic respiratory failure with hypercapnia Acute exacerbation of CHF (congestive heart failure) Acute hypercapnic respiratory failure Adult failure to thrive ZOFIA (acute kidney injury) Alcohol use Anticoagulant long-term use Atherosclerosis of coronary artery without angina pectoris Atherosclerosis of lower extremity with ulceration Back pain Bleeding disorder Cardiology follow-up encounter CHF (congestive heart failure) Chronic combined systolic and diastolic CHF (congestive heart failure) Congestive heart failure COPD (chronic obstructive pulmonary disease) COPD (chronic obstructive pulmonary disease) Diabetic foot infection Dietary restriction DVT (deep venous thrombosis) Encephalopathy acute Essential (primary) hypertension GERD (gastroesophageal reflux disease) History of non-ST elevation myocardial infarction (NSTEMI) (04/23/20) History of rheumatic fever Hyperlipidemia Inability to walk Insulin dependent diabetes mellitus Ischemic cardiomyopathy USP current use of 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 MSSA (methicillin susceptible Staphylococcus aureus) infection Nicotine dependence Non-healing surgical wound (05/01/20) Non-pressure chronic ulcer of other part of left foot with fat layer exposed Non-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 Nonrheumatic aortic (valve) stenosis 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 Osteomyelitis Osteomyelitis of toe of right foot Peripheral vascular occlusive disease Recurrent right pleural effusion Secondary pulmonary arterial hypertension Smoker Sternal wound infection Syncope Type 2 diabetes mellitus 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 foot with fat layer exposed Ulcer of right foot with necrosis of bone Wears glasses Home Medications ?Medication ?Instructions ?Recorded ?Last Taken ?Type atorvastatin 40 mg tablet 40 mg PO DAILY cholesterol 11/12/20 11/03/23 History ferrous sulfate 325 mg (65 mg 325 mg PO DAILY 10/29/22 11/02/23 History iron) tablet furosemide 40 mg tablet 40 mg PO DAILY #0 tabs 11/12/22 11/02/23 Rx cyclobenzaprine 10 mg tablet 10 mg PO TID PRN Muscle Pain 12/11/22 11/02/23 History insulin lispro 100 unit/mL 15 unit subcut ACHS 12/11/22 11/03/23 History subcutaneous pen (Humalog KwikPen (U-100) Insulin) warfarin 5 mg tablet 5 mg PO DAILY 01/05/23 11/02/23 History pantoprazole 40 mg tablet,delayed 40 mg PO QDAY 10/04/23 11/02/23 History release aspirin 81 mg tablet,delayed 81 mg PO DAILY 10/28/23 11/02/23 History release (Adult Aspirin Regimen) doxepin 50 mg capsule 50 mg PO DAILY 10/28/23 11/02/23 History gabapentin 100 mg capsule 100 mg PO BID 10/28/23 11/02/23 History insulin glargine-yfgn 100 unit/mL 15 unit subcut QHS 10/28/23 11/03/23 History (3 mL) subcutaneous pen linagliptin 5 mg tablet (Tradjenta) 5 mg PO DAILY 10/28/23 11/03/23 History metformin 500 mg tablet 500 mg PO BID 10/28/23 11/03/23 History metoprolol succinate 25 mg 25 mg PO DAILY 10/28/23 11/03/23 History tablet,extended release 24 hr mirtazapine 7.5 mg tablet 7.5 mg PO QHS 10/28/23 11/03/23 History khhmajmn-ai-rewyi 300 mcg-K 60 1 tab PO DAILY 10/28/23 11/02/23 History mcg-lycop 600 mcg-lutein 300 mcg tablet (Centrum Silver Men) cholecalciferol (vitamin D3) 25 25 mcg PO DAILY 10/31/23 11/02/23 History mcg (1,000 unit) capsule losartan 100 mg tablet 100 mg PO DAILY 10/31/23 11/03/23 History Allergy/AdvReac Type Severity Reaction Status Date / Time No Known Allergies Allergy Verified 11/17/23 14:06 Family History Mother Diabetes Heart disease Father Diabetes Surgical History H/O coronary artery bypass surgery (05/01/20) History of amputation History of angioplasty of peripheral vessel (01/02/10) History of femoropopliteal bypass (2008) History of incision and drainage (09/22/20) History of left heart catheterization (04/23/20) History of lumbar laminectomy History of mechanical aortic valve replacement Social History household members: significant other Smoking Status: Current every day smoker tobacco type: cigarettes alcohol intake: never substance use type: does not use caffeine: No ROS Constitutional Constitutional: Denies chills, fever(s), frequent falls, lethargy or weakness Eyes Eyes: Denies blind spots, change in vision or loss of vision ENT HEENT: Denies bleeding gums, hoarseness or sore throat Cardiovascular Cardiovascular: Denies abdominal pain, bluish discoloration of hand/feet, chest pain with activity, claudication, cold extremities, cyanosis, dyspnea on exertion, erythema on extremities, irregular heart rhythm, leg edema, leg ulcers, numbness in extremities or weakness in extremities Respiratory/Chest Respiratory/Chest: Denies cough, excessive phlegm production, shortness of breath at rest, shortness of breath with exertion or wheezing Gastrointestinal Gastrointestinal: Denies anorexia, change in stool character, constipation, diarrhea, melena or rectal bleeding Genitourinary Genitourinary: Denies dysuria or hematuria Musculoskeletal Musculoskeletal: Denies abnormal gait Integumentary Integumentary: Reports other Details: ; Denies erythema, non-healing lesions or wounds Neurologic Neurologic: Denies abnormal speech, focal weakness, headache(s), loss of vision, numbness, paresthesias or sensory deficit Hematologic/Lymphatic Hematologic/Lymphatic: Denies easy bleeding, easy bruising or lymphadenopathy Vital Signs Vital Signs Vital Signs: Weight Weight: 187 lb 6.287 oz Body Mass Index (BMI) 26.8 Physical Exam Const alert, oriented x3, no apparent distress and healthy appearing General Appearance: cooperative; Negative for combative or lethargic Orientation / Consciousness: awake Exam Limitations: no limitations HEENT Head and Scalp: normocephalic and atraumatic Eyes EOMs intact bilaterally General Eye: normal appearance of both eyes Neck full ROM, no lymphadenopathy and thyroid normal General: trachea midline; Negative for lymphadenopathy or tenderness Thyroid: thyroid normal Resp normal respiratory effort and no use of accessory muscles Effort and Inspection: Negative for labored, stridor or audible wheezes Cardio regular rate and regular rhythm Back/Spine Cervical Spine: cervical ROM normal Extremity full ROM, normal capillary refill and no clubbing, cyanosis or edema Skin no rashes or lesions noted and no wounds Neuro oriented x3, CN's II-XII intact bilaterally, no focal motor deficits and no sensory deficits noted Psych thought process normal, cooperative, affect normal, speech normal and activity/motor behavior normal Results Lab / Micro Data 12/21/23 10:31 12/21/23 10:31 Labs: Laboratory Results - last 24 hr 12/21/23 10:31: WBC 6.5, RBC 3.44 L, Hgb 11.0 L, Hct 33.7 L, MCV 98.0 H, MCH 32.0, MCHC 32.6, RDW Std Deviation 48.5 H, RDW Coeff of Estrada 13.6, Plt Count 224, MPV 9.8, PT 21.7 H, INR 1.9, Sodium 136, Potassium 4.4, Chloride 105, Carbon Dioxide 25.0, Anion Gap 6, BUN 19 H, Creatinine 0.96, Estim Creat Clear Calc 72.87, Est GFR (MDRD) Af Amer 100, Est GFR (MDRD) Non-Af 83, BUN/Creatinine Ratio 19.9, Glucose 169 H, Calcium 9.5 Assessment & Plan Assessment/Plan (1) Atherosclerosis of [place] arteries of left leg with ulceration of other part of foot: PLAN: -angio with possible stent
--- NOTE | 2023-12-21 15:07 | OP.PCM_ITS ---
Report of Operation Date of Procedure: 12/21/23 Pre-Operative Diagnosis: atherosclerosis [place] artery with ulceration other pa rt of foot, left lower extremity, prior profunda-PT bypass Post-Operative Diagnosis: same Surgery/Procedure Performed:: aortogram, LLE runoff IVUS PT, fem-pop, external iliac artery angioplasty/stent PT Surgeon: Kendrick May Type of Anesthesia: Local and Sedation,Conscious Estimated Blood Loss (mL): 25 Description of Procedure: HPI: Patient is a 73-year-old male with multiple episodes of lower extremity wounds and digit amputations. He has a remote history of a left profunda to posterior tibial artery bypass with saphenous vein has been followed with surveillance duplex. He previously had a posterior tibial artery high-grade stenosis that was just beyond the anastomosis treated with balloon angioplasty 6 months prior. His imaging has revealed recurrence of the stenosis so he is taken now for angiography with repeat intervention. Given the recurrent nature of the lesion plan is to treat with the Dawkins Espirit absorbable scaffold. Description procedure: Upon obtaining informed consent and verification correct patient procedure site patient taken to the Dry End Operator he was positioned prepped and draped in usual fashion. Time was performed conscious sedation administered Versed and fentanyl. Skin overlying the right common femoral artery anesthetized 1% lidocaine the vessel accessed micropuncture needle wire under ultrasound guidance. This then changed for micropuncture sheath through which injection iliofemoral angiogram was performed revealed satisfactory position no extravasation dissection. Through this a Bentson was advanced into the abdominal aorta and the proximal sheath exchanged out for a short 5 [place] sheath. Through the 5 [place] sheath and Omni Flush catheter was advanced in the abdominal aorta and digital subtraction aortogram pelvic angiogram was performed. We then navigated into the contralateral iliac system advancing our catheter to the distal external leg artery. From this position we performed sequential subtraction angiography left lower extremity. Next the Bentson wire was readvanced through the Omni Flush catheter and the Omni Flush catheter exchanged for a Vanschie 2 catheter which was used along with an angled Glidewire to cannulate the profunda and ultimately gain access into the proximal anastomosis of the bypass. The Glidewire was then advanced into the distal aspect of the bypass and the Vanschie catheter exchanged for a quick cross catheter which was advanced into the proximal lower leg. From this position was performed further imaging of the distal bypass in the outflow vessels. The patient was then heparinized and allowed to circulate for 3 minutes after which point the Bentson wire was readvanced and the quick cross catheter and 5 [place] sheath exchanged out for a 5 [place] 55 Rabie sheath which was positioned in the contralateral common femoral artery. From this position we readvanced the quick cross catheter into the distal bypass and using a command 14 wire we navigated the distal anastomosis and posterior tibial artery stenosis advancing the wire into the patent vessel distally. The cath was then withdrawn and a intravascular sound probe advanced over the wire and recorded pullback performed of the posterior tibial artery, the bypass graft, the profunda femoral artery, and the common femoral artery. This confirmed greater than 75% stenosis of the posterior tibial artery just beyond the anastomosis. The bypass graft and the proximal distal anastomosis otherwise widely patent with no significant stenosis. The common femoral artery and profundofemoral artery also were widely patent with no significant stenosis. We then withdrew the ultrasound catheter and advanced a Melisa 3 x 40 angioplasty balloon which was then centered on the lesion and inflated to nominal for 3 minutes then deflated and withdrawn. Repeat angiography revealed satisfactory lesion response with no extravasation or dissection. Next the Dawkins Espirit 3 x 28 absorbable scaffold stent was brought on the field and prepped for manufactures instructions. This was then advanced over the command 14 wire into the distal bypass graft. Given the tortuous nature of the patient's anatomy and the rapid exchange delivery system we are unable to advance this the entirety required to reach the lesion. The device was then withdrawn and a quick cross catheter readvanced and the command 14 wire exchanged for a short tip Amplatz wire. The 55 Rabie was then exchanged for a 90 Rabie which was advanced over the wire and positioned in the distal bypass graft. The quick cross was then readvanced and the Amplatz wire exchanged for the command 14 wire. Over the command 14 wire the stent was readvanced this time successfully to the lesion. This was then inflated to nominal deploying the stent centered on the lesion with satisfactory overlap onto normal vessel distal and proximal into the anastomosis. The balloon was then deflated withdrawn and the melisa balloon readvanced and postdilated to nominal and then deflated and withdrawn. Completion angiography revealed satisfactory lesion response with no residual stenosis and no extravasation or dissection. There is now more brisk contrast transit through the bypass and into the outflow vessels. Intravascular shunt probe was then readvanced and recorded pullback performed of the posterior tibial artery, the stented segment, and the distal bypass. This revealed satisfactory lesion response with no si gnificant residual stenosis. Wire the catheter then withdrawn and the long 5 [place] sheath exchanged out for a short 5 [place] sheath. A Mynx closure device and deployed followed by 2 minutes of manual pressure with satisfactory stasis noted. Patient was taken to the PCU for bedrest prior to discharge to home. Radiograph interpretation: Abdominal aorta normal caliber with scattered calcified atherosclerosis but no stenosis. Right common and external iliac arteries patent with significant tortuosity and scattered calcified atherosclerosis but no stenosis. Left common and external iliac arteries widely patent with significant tortuosity and calcified atherosclerosis but no stenosis. Left common femoral artery and profundofemoral artery widely patent with prior patch angioplasty with no recurrent stenosis. The profunda to posterior tibial bypass proximal anastomosis was from a secondary branch of the profunda which was widely patent with no significant stenosis. There was slow transit of contrast through the bypass, with profunda branches and collaterals actually filling more rapidly than the bypass contrast transit. The distal anastomosis was widely patent with no significant stenosis. The posterior tibial artery beginning at the anastomosis for a length of approximately 3 cm and high-grade stenosis with circumferential calcification in the wall but no significant calcification of the lesion. This was greater than 75%. Posterior tibial artery was the dominant runoff to the foot and at the ankle there was a large collateral branch that filled the peroneal artery was then filled retrograde towards the calf. Postintervention there was improved contrast transit with much more brisk transit through the bypass and into the outflow vessels.
[2023-12-21 15:11] LABS: ACT Activated Clotting Time 244 sec (74-137)
== END 2023-12-21 20:32 | disposition home or self-care (01) ==
LOC: CLSP 10:24 → PCU 15:33
PROVIDERS: PCP Family Medicine Geriatric Medicine; Referring Provider Surgery Trauma Surgery; Visit Provider Surgery Trauma Surgery
DX: I70.245 Atherosclerosis of native arteries of left leg with ulceration of other part of foot (principal); E11.621 Type 2 diabetes mellitus with foot ulcer; L97.929 Non-pressure chronic ulcer of unspecified part of left lower leg with unspecified severity; I50.42 Chronic combined systolic (congestive) and diastolic (congestive) heart failure; I11.0 Hypertensive heart disease with heart failure; J44.9 Chronic obstructive pulmonary disease, unspecified; E11.42 Type 2 diabetes mellitus with diabetic polyneuropathy; E11.51 Type 2 diabetes mellitus with diabetic peripheral angiopathy without gangrene; E78.5 Hyperlipidemia, unspecified; I25.10 Atherosclerotic heart disease of native coronary artery without angina pectoris; K21.9 Gastro-esophageal reflux disease without esophagitis; F17.210 Nicotine dependence, cigarettes, uncomplicated; Z95.820 Peripheral vascular angioplasty status with implants and grafts
CPT/HCPCS: 36200; 36245; 36415; 37230; 37252; 37253; 75625; 75710; 76937; 80048; 85027; 85347; 85610; 99152; 99153; C1725; C1753; C1760; C1769; C1874; C1887; C1894; J7040; Q9967

== ENCOUNTER → 2024-02-01 | Outpatient (CLI) | payer MEDICARE, MEDICAID, SELFPAY ==
--- NOTE | 2024-02-01 12:45 | ART_ITS ---
Reason For Study: S/P Stent and Bypass Procedure A bilateral lower extremity continuous wave Doppler with analog waveform analysis and ankle brachial indexes. Left Segmental Pressures Left brachial= 126mmHg. Left posterior tibial artery = 172mmHg. Left dorsalis pedis artery = >254mmHg. Left digit = 41 mmHg. The left dorsalis pedis waveforms are biphasic. The left posterior tibial artery waveforms are biphasic. Right Segmental Pressures Right brachial= 121mmHg. Right posterior tibial artery = 99mmHg. Right dorsalis pedis artery = 82mmHg. The right dorsalis pedis waveforms are biphasic. The right posterior tibial artery waveforms are biphasic. Indices The right ankle brachial index by the dorsalis pedis is 0.65. The right ankle brachial index by the posterior tibial artery is 0.79. The left ankle brachial index by the dorsalis pedis is NC. The left ankle brachial index by the posterior tibial artery is 1.37. The left digital-brachial index is 0.33. VL/Ankle Brachial Index Interpretation Summary Right HERNESTO 0.79, moderate arterial insufficiency. Doppler/PVR waveforms of the r ight leg normal at rest. Left HERNESTO 1.37, normal. Doppler/PVR waveforms of the left leg mildly diminished at rest. TBI diminished. Ordering Physician: Noemí Amos Referring Physician: Saurabh Hernandez Chi Performed By: Maricel Delcid RVT and Student
--- NOTE | 2024-02-01 12:45 | ADU_ITS ---
Reason For Study: S/P BYPASS Right Velocities Left Velocities Ext. Iliac Artery, dist = 86.1 cm./sec. Ext Iliac Artery, dist = 88.4 cm./sec. Common Femoral Artery, prox = 175.2 cm./sec. NAIL ASSEMBLY MACHINE OPERATOR mid, Prox to bypass, 58.4 cm/sec. Common Femoral Artery, mid = 115.5 cm./sec. Profunda Femoral Artery = 141.8 cm./sec. Supf Femoral Artery, prox = 99.7 cm./sec. SFA and Giovanny are occluded. SFA prox/mid, prox to stent, 57.2 cm/sec. SFA mid, Prox stent, 110.7 cm/sec. Bypass Graft, NAIL ASSEMBLY MACHINE OPERATOR-SAMPLE STEAMER mid SFA distal, Mid stent, 54.1 cm/sec. Prox anstomosis, 68.5 cm/sec. Giovanny prox, Distal stent, 92.4 cm/sec. Prox graft, 98.6 cm/sec. Giovanny mid, distal to stent, 76.0 cm/sec. Mid graft, 36.6 cm/sec. Popliteal Artery, dist = 183.0 cm./sec. Distal graft, 34.8 cm/sec. Profunda Femoral Artery = 190.1 cm./sec. Distal anastomosis, 33.1 cm/sec. Post. Tibial Artery, mid = 11.5 cm./sec. Peroneal Artery, prox = 122.1 cm./sec. SAMPLE STEAMER mid, distal to bypass, 114.9 cm/sec. Peroneal Artery, mid = 86.9 cm./sec. Post Tibial Artery, dist. = 135.0 cm./sec. Peroneal Artery,dist = 46.8 cm./sec. PeroA, No Flow Throughout Prox and Dist SAMPLE STEAMER, No Flow Throughout MAGNUS, No Flow Throughout. Prox/Mid MAGNUS, No Flow Throughout. Ant. Tibial Artery, dist = 31.1 cm./sec. Procedure Exam performed in department. /US Art Duplex Bilat Lower Ext Interpretation Summary Right lower extremity SFA stent patent with normal velocities. Popliteal artery distal to stent with 50-75% stenosis. Left lower extremity bypass patent with diminished velocities in distal segment . Distal anastomosis and posterior tibial outflow patent with no stenosis Ordering Physician: Noemí Amos Referring Physician: Noemí Amos Performed By: Maricel Delcid RVT and Student
== END | disposition home or self-care (01) ==
PROVIDERS: PCP Family Medicine Geriatric Medicine; Referring Provider Physician Assistant; Visit Provider Physician Assistant
DX: Z48.812 Encounter for surgical aftercare following surgery on the circulatory system (principal)
CPT/HCPCS: 93922; 93925

== ENCOUNTER → 2024-02-13 | Outpatient (CLI) | payer MEDICARE, MEDICAID, SELFPAY ==
[2024-02-13 14:15] LABS: Absolute Lymphocyte Count 1.59 X10^3/uL (0.83-4.51); Basophil# 0.04 X10^3/uL; Basophil% 0.6 % (0-1); Eosinophil# 0.34 X10^3/uL; Eosinophils% 5.1 % (0-5); Hematocrit 29.8 % (40-54); Hemoglobin 9.7 g/dL (13.0-16.5); Lymphocyte # 1.59 X10^3/ul (0.83-4.51); Lymphocyte % 24.1 % (19-41); Mean Corp Hgb Conc 32.6 g/dL (32-36); Mean Corpuscular Hgb 31.7 pg (27.0-32.0); Mean Corpuscular Volume 97.4 fL (80-94); Mean Platelet Vol. 9.8 fl (6.2-12.0); Monocyte# 0.58 X10^3/uL; Monocyte% 8.8 % (0-10); NRBC Flagged by Analyzer 0 % (0-5); Neutrophil # 4.03 X10^3/uL (2.7-7.7); Neutrophil % 60.9 % (47-70); Platelet Count 247 K/mm3 (150-450); RBC Distribution Width CV 13.1 % (11.6-14.6); RBC Distribution Width SD 46.7 fl (35.1-43.9); Red Blood Count 3.06 M/mm3 (4.6-6.2); White Blood Count 6.6 K/mm3 (4.4-11.0)
[2024-02-13 14:58] LABS: ALB/GLOB Ratio 0.9 RATIO (0.9-2.4); AST(SGOT) 17 U/L (15-37); Alanine Aminotransfer ALT/SGPT 17 U/L (16-61); Albumin, Serum 3.6 g/dL (3.2-5.0); Alkaline Phosphatase 133 U/L (45-117); Anion Gap 3 (5-15); BUN 28 mg/dL (7-18); BUN/Creat Ratio 18.9 RATIO (10-20); Calcium,Total 8.5 mg/dL (8.5-10.1); Chloride 106 mmol/L (98-107); Creatinine, Serum 1.48 mg/dL (0.70-1.30); EST Glomerular Filtration Rate 50 mL/min (>60); Est Glom Filt Rate - Afr Amer 60 mL/min (>60); Glucose 110 mg/dL (74-106); Potassium 4.4 mmol/L (3.5-5.1); Protein, Total 7.6 g/dL (6.4-8.2); Sodium Level 135 mmol/L (136-145); Thyroid Stim Hormone (TSH) 1.24 uIU/mL (0.358-3.74)
[2024-02-13 15:03] LABS: Vitamin D,25 Hydroxy 44.7 ng/mL
[2024-02-13 17:10] LABS: Microalbumin,Random Urine 8.4 mg/L (NO RANGE EST.)
== END | disposition home or self-care (01) ==
LOC: POLAB3 13:52
PROVIDERS: PCP Family Medicine Geriatric Medicine; Visit Provider Family Medicine Geriatric Medicine
DX: E11.65 Type 2 diabetes mellitus with hyperglycemia (principal); I10 Essential (primary) hypertension; E55.9 Vitamin D deficiency, unspecified; F52.8 Other sexual dysfunction not due to a substance or known physiological condition
CPT/HCPCS: 36415; 80053; 82043; 82306; 84403; 84443; 85025

== ENCOUNTER 2024-02-24 15:38 | Inpatient (IN) | payer MEDICARE, MEDICAID, SELFPAY ==
[2024-02-24 15:38] VITALS: BP 118/70; BP 122/60; PULSE 119; PULSE 122; RESP 18; TEMP 36.6; O2SAT 100
[2024-02-24 15:40] VITALS: BMI 26.1
--- NOTE | 2024-02-24 16:50 | RAD_ITS ---
INDICATION: infection EXAMINATION/TECHNIQUE: X-RAY - RIGHT XR Foot Min 3 Views 3 VIEWS COMPARISON: 12/17/2022 FINDINGS: SOFT TISSUES: Forefoot soft tissue swelling with gas formations about the fifth MTP joint. Stable surgical clips in the soft tissues medial ankle. BONES/JOINTS: Stable changes from amputations of the first and second rays. No acute fracture. Joint spaces anatomically aligned. Stable degenerative changes. No sclerotic or destructive changes observed. RAD/Foot min 3 Views IMPRESSION: Soft tissue gas formation about the fifth MTP joint. No definite acute bony abnormalities. Electronically Signed: Sage Burrell MD at 17:40 EDT ,
--- NOTE | 2024-02-24 16:51 | EKG12_ITS ---
Test Reason : GENERAL Blood Pressure : / mmHG Vent. Rate : 117 BPM Atrial Rate : 117 BPM P-R Int : 128 ms QRS Dur : 086 ms QT Int : 312 ms P-R-T Axes : 000 027 052 degrees QTc Int : 435 ms Sinus tachycardia Inferior infarct , age undetermined Cannot rule out Anterior infarct , age undetermined Abnormal ECG Confirmed by TIKA CHAPA, SHEN ([id number]), commercial production editor RICK GARCIA ([id number]) on 02/27/2024 6:37:32 AM Referred By: Confirmed By:NUHA VILLELA MD
--- NOTE | 2024-02-24 16:52 | ED.VIS.LOWEX ---
HPI History of Present Illness Chief Complaint: Lower Extremity Injury Informant: patient Narrative Narrative: 73-year-old male states that he woke this morning with a swollen red right foot. He states that he cannot see his feet very well. He states that Dr. May has amputated several toes. He is a diabetic. He states that he has peripheral vascular disease and has stents in his leg and continues to smoke. He states that he was told to hold his blood thinners due to bad blood work. He states he was told to hold it for 3 days. He has a history of coronary artery disease as well as CABG. [facility] Medical History Peripheral vascular occlusive disease Atherosclerosis of [place] arteries of right leg with ulceration of other part of foot Diabetic ulcer of toe of left foot associated with type 2 diabetes mellitus Ulcer of toe of left foot Atherosclerosis of [place] arteries of left leg with ulceration of other part of foot Wears glasses Alcohol use Insulin dependent diabetes mellitus Back pain Syncope Dietary restriction Cardiology follow-up encounter History of rheumatic fever ZOFIA (acute kidney injury) Recurrent right pleural effusion Osteomyelitis of toe of right foot Non-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 Non-pressure chronic ulcer of other part of left foot with fat layer exposed Acute exacerbation of CHF (congestive heart failure) Anticoagulant long-term use Acute and chronic respiratory failure with hypercapnia Encephalopathy acute Acute hypercapnic respiratory failure Atherosclerosis of lower extremity with ulceration COPD (chronic obstructive pulmonary disease) Inability to walk Adult failure to thrive CHF (congestive heart failure) Smoker Congestive heart failure Sternal wound infection 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 MSSA (methicillin susceptible Staphylococcus aureus) infection History of non-ST elevation myocardial infarction (NSTEMI) (04/23/20) Non-healing surgical wound (05/01/20) 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 current use of 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 Chronic combined systolic and diastolic CHF (congestive heart failure) Type 2 diabetes mellitus Atherosclerosis of coronary artery without angina pectoris Nicotine dependence Ischemic cardiomyopathy Secondary pulmonary arterial hypertension Essential (primary) hypertension Nonrheumatic aortic (valve) stenosis 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 Osteomyelitis Diabetic foot infection Bleeding disorder Ulcer of right foot with fat layer exposed COPD (chronic obstructive pulmonary disease) Hyperlipidemia DVT (deep venous thrombosis) GERD (gastroesophageal reflux disease) Home Medications ?Medication ?Instructions ?Recorded ?Last Taken ?Type atorvastatin 40 mg tablet 40 mg PO DAILY cholesterol 11/12/20 11/03/23 History ferrous sulfate 325 mg (65 mg 325 mg PO DAILY 10/29/22 11/02/23 History iron) tablet furosemide 40 mg tablet 40 mg PO DAILY #0 tabs 11/12/22 11/02/23 Rx cyclobenzaprine 10 mg tablet 10 mg PO TID PRN Muscle Pain 12/11/22 11/02/23 History insulin lispro 100 unit/mL 5 unit subcut ACHS 12/11/22 11/03/23 History subcutaneous pen (Humalog KwikPen (U-100) Insulin) pantoprazole 40 mg tablet,delayed 40 mg PO QDAY 10/04/23 11/02/23 History release aspirin 81 mg tablet,delayed 81 mg PO DAILY 10/28/23 11/02/23 History release (Adult Aspirin Regimen) doxepin 50 mg capsule 50 mg PO DAILY 10/28/23 11/02/23 History gabapentin 100 mg capsule 100 mg PO BID 10/28/23 11/02/23 History insulin glargine-yfgn 100 unit/mL 15 unit subcut QHS 10/28/23 11/03/23 History (3 mL) subcutaneous pen linagliptin 5 mg tablet (Tradjenta) 5 mg PO DAILY 10/28/23 11/03/23 History metformin 500 mg tablet 500 mg PO BID 10/28/23 11/03/23 History metoprolol succinate 25 mg 25 mg PO DAILY 10/28/23 11/03/23 History tablet,extended release 24 hr mirtazapine 7.5 mg tablet 7.5 mg PO QHS 10/28/23 11/03/23 History seljlald-dh-djchz 300 mcg-K 60 1 tab PO DAILY 10/28/23 11/02/23 History mcg-lycop 600 mcg-lutein 300 mcg tablet (Centrum Silver Men) cholecalciferol (vitamin D3) 25 25 mcg PO DAILY 10/31/23 11/02/23 History mcg (1,000 unit) capsule losartan 100 mg tablet 100 mg PO DAILY 10/31/23 11/03/23 History clopidogrel 75 mg tablet (Plavix) 75 mg PO DAILY #90 tabs 12/21/23 Unknown Rx warfarin 1 mg tablet 1.5 mg PO DAILY 02/24/24 Unknown History Allergy/AdvReac Type Severity Reaction Status Date / Time No Known Allergies Allergy Verified 02/24/24 15:39 Family History Mother Diabetes Heart disease Father Diabetes Surgical History History of amputation History of incision and drainage (09/22/20) History of angioplasty of peripheral vessel (01/02/10) History of lumbar laminectomy History of femoropopliteal bypass (2008) H/O coronary artery bypass surgery (05/01/20) History of mechanical aortic valve replacement History of left heart catheterization (04/23/20) Social History household members: significant other Smoking Status: Current every day smoker tobacco type: cigarettes alcohol intake: never substance use type: does not use caffeine: No ROS ROS ED Constitutional Constitutional ED: Reports chills; Denies fever(s) or weight loss Eyes Eyes: Denies change in vision or diplopia ENT ENT ED: Denies ear pain, rhinorrhea or sore throat Cardiovascular Cardiovascular: Denies chest pain, orthopnea, palpitations or racing heartbeat Respiratory/Chest Respiratory/Chest: Denies cough, dyspnea or orthopnea Gastrointestinal Gastrointestinal: Denies abdominal pain, diarrhea, nausea or vomiting Genitourinary Genitourinary ED: Denies dysuria, hematuria or urinary frequency Musculoskeletal Musculoskeletal: Reports other Details: right foot swelling and redness ; Denies arthralgias or myalgias Integumentary Denies abscess or rash Neurologic Neurologic: Denies headache(s) or weakness Psychiatric Psychiatric: Denies anxiety, depression, suicidal ideation or suicidal thoughts Endocrine Endocrinology: Denies polydipsia, polyphagia or polyuria Allergic/Immunologic Allergic/Immunologic ED: Denies mouth swelling, tongue swelling or urticaria EXAM Physical Exam Const Vital Signs: 02/24/24 15:38 02/24/24 15:38 02/24/24 17:38 Temperature 98 F Temperature Source Temporal Pulse Rate 122 H 119 H 120 H Respiratory Rate 18 18 20 H Blood Pressure 122/60 H 118/70 145/59 H Blood Pressure Mean 80 86 87 Pulse Ox 100 100 99 Oxygen Delivery Method Room Air Room Air Room Air Positive well nourished and well developed General Appearance ED: well developed and NAD HEENT Reports normocephalic, head/scalp atraumatic and moist mucous membranes Eyes PERRL and EOMs intact bilaterally Neck full ROM, no lymphadenopathy, supple and no JVD Resp normal respiratory effort and clear to auscultation bilaterally Cardio regular rate, regular rhythm and no murmurs Rate: tachycardic GI normal to inspection, nondistended, normoactive bowel sounds and non-tender Palpation: soft Back/Spine no CVA tenderness and normal ROM Extremity Extremity Narrative: Right foot is swollen with erythema increased warmth. The great toe and second digit are amputated. There is a quarter sized black eschar over the lateral MTP joint 5. There are some mild erythema up onto the leg to about [place]. Calf is nontender. Significant amount of dry skin of the lower extremities. Neuro oriented x3 and CN's II-XII intact bilaterally Sensorium / Orientation: alert Motor Exam: strength 5/5 throughout Psych mental status grossly normal Mood & Affect: Negative for depressed or tearful Skin no rashes or lesions noted and no wounds MDM MDM MDM Narrative Medical decision making narrative: Differential diagnosis includes but not limited to osteomyelitis diabetic cellulitis DVT lymphedema cardiac dysrhythmias supratherapeutic INR subtherapeutic INR renal dysfunction sepsis My independent interpretation of the x-ray of the right foot is status post amputation gas in soft tissues. Gas may be customer contact representative of the eschar that there versus osteomyelitis. White count 11.6 hemoglobin 7.3 with a platelet count of 241 INR significantly elevated 4.3 lactic acid is 2.0 creatinine 1.58. Glucose 146. EKG demonstrates a sinus tachycardia. Blood cultures were obtained and I reviewed the patient's previous wound cultures which have grown Pseudomonas as well as MRSA. Therefore vancomycin and Zosyn were ordered. I spoke with Dr. May patient's vascular surgeon who is happy to consult if need be. I spoke with Dr. Lyons from foot and ankle as well as her hospitalist. The plan is admission to the hospital History & Record Review Discussion w/independent historian: Patient Additional record(s) reviewed:: Prior inpatient record, Prior outpatient record and Prior labs Lab Data Attestation: I reviewed the patient's lab results. Labs: Laboratory Results - last 24 hr 02/24/24 17:00 WBC 11.6 H RBC 2.41 L Hgb 7.3 L Hct 22.8 L MCV 94.6 H MCH 30.3 MCHC 32.0 RDW Std Deviation 45.5 H RDW Coeff of Estrada 13.2 Plt Count 241 MPV 9.8 Immature Gran % (Auto) 0.400 Neut % (Auto) 87.5 H Lymph % (Auto) 4.3 L Fajardo % (Auto) 7.2 Eos % (Auto) 0.4 Baso % (Auto) 0.2 Absolute Neuts (auto) 10.2 H Absolute Lymphs (auto) 0.50 L Nucleated RBC % 0 PT 40.6 H INR 4.3 H* APTT 107.7 H* Sodium 134 L Potassium 4.6 Chloride 104 Carbon Dioxide 23.0 Anion Gap 7 BUN 33 H Creatinine 1.58 H Estim Creat Clear Calc 45.67 Est GFR (MDRD) Af Amer 56 L Est GFR (MDRD) Non-Af 46 L BUN/Creatinine Ratio 20.9 H Glucose 146 H Lactic Acid 2.0 Calcium 8.6 Total Bilirubin 0.70 Direct Bilirubin 0.27 AST 49 H ALT 37 Alkaline Phosphatase 120 H Total Protein 7.5 Albumin 3.2 Globulin 4.3 H Radiography Diagnostic Testing: Clinical Impression(s) from Imaging Studies Foot X-Ray 02/24/24 16:50 IMPRESSION: Soft tissue gas formation about the fifth MTP joint. No definite acute bony abnormalities. Electronically Signed: Sage Burrell MD at 17:40 EDT Reading Location ID and State: [address] [place] [address] Tel , Service support , EKG Initial EKG: Attestation: I personally reviewed and interpreted this EKG as follows: Comments: Sinus tachycardia ventricular rate of 117 bpm Management Discussion w/another healthcare provider: Hospitalist (Dr. Flores) and Finish Repair Worker (Dr. May and [place]) Discharge Plan Dx/Rx/DC Orders Clinical Impression: Diabetic foot infection, Nicotine dependence, cigarettes, uncomplicated, Anemia, PVD (peripheral vascular disease), Diabetes mellitus, Tachycardia, Supratherapeutic INR Disposition Disposition: [facility]
[2024-02-24 17:14] LABS: Absolute Neutrophil Count 10.2 X10^3/uL (2.0-7.7); Basophil# 0.02 X10^3/uL; Basophil% 0.2 % (0-1); Eosinophil# 0.05 X10^3/uL; Eosinophils% 0.4 % (0-5); Hematocrit 22.8 % (40-54); Hemoglobin 7.3 g/dL (13.0-16.5); Lymphocyte % 4.3 % (19-41); Mean Corpuscular Hgb 30.3 pg (27.0-32.0); Mean Corpuscular Volume 94.6 fL (80-94); Mean Platelet Vol. 9.8 fl (6.2-12.0); Monocyte# 0.84 X10^3/uL; Monocyte% 7.2 % (0-10); NRBC Flagged by Analyzer 0 % (0-5); Neutrophil # 10.16 X10^3/uL (2.7-7.7); Neutrophil % 87.5 % (47-70); POSITIVE DIFFERENTIAL YES; Platelet Count 241 K/mm3 (150-450); RBC Distribution Width CV 13.2 % (11.6-14.6); RBC Distribution Width SD 45.5 fl (35.1-43.9); Red Blood Count 2.41 M/mm3 (4.6-6.2); White Blood Count 11.6 K/mm3 (4.4-11.0)
[2024-02-24 17:30] LABS: AST(SGOT) 49 U/L (15-37); Alanine Aminotransfer ALT/SGPT 37 U/L (16-61); Albumin, Serum 3.2 g/dL (3.2-5.0); Alkaline Phosphatase 120 U/L (45-117); Anion Gap 7 (5-15); BUN 33 mg/dL (7-18); BUN/Creat Ratio 20.9 RATIO (10-20); Bilirubin, Direct 0.27 mg/dL (0.00-0.30); Calcium,Total 8.6 mg/dL (8.5-10.1); Chloride 104 mmol/L (98-107); Creatinine, Serum 1.58 mg/dL (0.70-1.30); EST Glomerular Filtration Rate 46 mL/min (>60); Est Glom Filt Rate - Afr Amer 56 mL/min (>60); Estimated Creatinine Clearance 45.67 ml/min; Globulin 4.3 g/dL (2.2-4.2); Glucose 146 mg/dL (74-106); Potassium 4.6 mmol/L (3.5-5.1); Protein, Total 7.5 g/dL (6.4-8.2); Sodium Level 134 mmol/L (136-145)
[2024-02-24 17:38] VITALS: BP 145/59; PULSE 120; RESP 20; O2SAT 99
[2024-02-24 17:51] LABS: Prothrombin Time (Protime)PT. 40.6 SECONDS (11.7-14.9)
[2024-02-24 17:56] LABS: International Normalized Ratio 4.3; Partial Thromboplast Time 107.7 Seconds (24.1-36.2)
[2024-02-24] MEDS: Piperacil/Tazobactam 4.5 GM in 0.9% Normal Saline (100mL MB+) 100 ML IV (18:08)
[2024-02-24] MEDS: Vancomycin HCl 2,000 MG in 0.9% Normal Saline (500mL Bag) 500 ML 250 MG IV (18:47)
[2024-02-24 19:00] VITALS: BP 132/61; PULSE 119; RESP 20; TEMP 36.9; O2SAT 97
[2024-02-24 19:13] VITALS: BP 132/61; PULSE 119; RESP 20; TEMP 36.9; O2SAT 97
--- NOTE | 2024-02-24 19:15 | PCM.HP.STD ---
HPI - General General Date of Admission: 02/24/24 Date of Service: 02/24/24 Chief Complaint: R foot red, swollen. HPI Narrative The patient is a 73 y/o M w/ PMHx: Valvular Heart Disease s/p AVR w/ [place] Mechanical valve 21 mm 04/2020, CAD s/p CABG w/ WAITE-LAD, free BRYAN to obtuse marginal 04/2020, HTN, HLD, COPD, PVD, PAD, Ischemic cardoimyopathy/HFcombinedEF per records, Hx VTE, Diabetes mellitus type II with chronic neuropathy and notable diabetic wound/foot infection history/osteomyelitis, Chronic anemia, CKD stage III based on most recent GFR trending although has vascillated and certainly could be stage II but point testing at acute situational visits, s/p recent OR with aortiogram and left lower extremity runoff with IVUS PT, femoropopliteal and external iliac artery angioplasty/stent PT per Dr. May and prior to this 11/04/2023 amputation of the left second toe per podiatry Dr. Lozano who now re-presents to the [facility] ED on 02/24/24 with history of onset of swelling upon awakening this a.m. to the right foot with difficulty seeing his feet well and unfortunately despite his significant PAD and CAD ongoing continued tobacco usage with recent elevated INR and recommendation for the last 3 days to hold his Coumadin but unclear if he has been following this recommendation but given noted right foot swelling out of norm prompted ED evaluation to be cautious. Upon ED evaluation he also has noted quarter size black eschar over the lateral MTP joint with discomfort with palpation. He notes the pain to the right foot is primarily when he exerts himself and bears weight. He notes decreased appetite and chills but no specific fevers nor any nausea or emesis but has felt mild palpitations. Upon discussion he is very reticent to have any kind of surgical intervention but amenable to evaluation and discussions. Workup in the ED included T98, heart rate 122, BP 122/60, respiratory rate 18, 100% room air, most recent repeat vital signs heart rate 120, BP 145/59, respiratory rate 20, 99% on room air, CBC with WBC 11.6, hemoglobin 7.3, MCV 94.6, platelet 241 with left shift and lymphopenia, coags with PT 40.6, INR supratherapeutic 4.7, PTT 107.7, CMP with sodium 134, BUN/creatinine 23/1.58, GFR 46, glucose 146, hepatic profile not marked appearing, lactic acid 2.0, blood culture x 2 pending per ED, plain film of the right foot with soft tissue gas formation about the fifth MTP joint with no definitive acute bony abnormalities, EKG with sinus tachycardia with no acute evidence of ischemia. ED discussed case with vascular surgery Dr. May and podiatry Dr. Lyons. In the ED patient ministered IV vancomycin and IV Zosyn. [facility] Medical History Peripheral vascular occlusive disease Atherosclerosis of [place] arteries of right leg with ulceration of other part of foot Diabetic ulcer of toe of left foot associated with type 2 diabetes mellitus Ulcer of toe of left foot Atherosclerosis of [place] arteries of left leg with ulceration of other part of foot Wears glasses Alcohol use Insulin dependent diabetes mellitus Back pain Syncope Dietary restriction Cardiology follow-up encounter History of rheumatic fever ZOFIA (acute kidney injury) Recurrent right pleural effusion Osteomyelitis of toe of right foot Non-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 Non-pressure chronic ulcer of other part of left foot with fat layer exposed Acute exacerbation of CHF (congestive heart failure) Anticoagulant long-term use Acute and chronic respiratory failure with hypercapnia Encephalopathy acute Acute hypercapnic respiratory failure Atherosclerosis of lower extremity with ulceration COPD (chronic obstructive pulmonary disease) Inability to walk Adult failure to thrive CHF (congestive heart failure) Smoker Congestive heart failure Sternal wound infection 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 MSSA (methicillin susceptible Staphylococcus aureus) infection History of non-ST elevation myocardial infarction (NSTEMI) (04/23/20) Non-healing surgical wound (05/01/20) shelter current use of 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 Chronic combined systolic and diastolic CHF (congestive heart failure) Type 2 diabetes mellitus Atherosclerosis of coronary artery without angina pectoris Nicotine dependence Ischemic cardiomyopathy Secondary pulmonary arterial hypertension Essential (primary) hypertension Nonrheumatic aortic (valve) stenosis 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 Osteomyelitis Diabetic foot infection Bleeding disorder Ulcer of right foot with fat layer exposed COPD (chronic obstructive pulmonary disease) Hyperlipidemia DVT (deep venous thrombosis) GERD (gastroesophageal reflux disease) Home Medications ?Medication ?Instructions ?Recorded ?Last Taken ?Type atorvastatin 40 mg tablet 40 mg PO DAILY cholesterol 11/12/20 11/03/23 History ferrous sulfate 325 mg (65 mg 325 mg PO DAILY 10/29/22 11/02/23 History iron) tablet furosemide 40 mg tablet 40 mg PO DAILY #0 tabs 11/12/22 11/02/23 Rx cyclobenzaprine 10 mg tablet 10 mg PO TID PRN Muscle Pain 12/11/22 11/02/23 History insulin lispro 100 unit/mL 5 unit subcut ACHS 12/11/22 11/03/23 History subcutaneous pen (Humalog KwikPen (U-100) Insulin) pantoprazole 40 mg tablet,delayed 40 mg PO QDAY 10/04/23 11/02/23 History release aspirin 81 mg tablet,delayed 81 mg PO DAILY 10/28/23 11/02/23 History release (Adult Aspirin Regimen) doxepin 50 mg capsule 50 mg PO DAILY 10/28/23 11/02/23 History gabapentin 100 mg capsule 100 mg PO BID 10/28/23 11/02/23 History insulin glargine-yfgn 100 unit/mL 15 unit subcut QHS 10/28/23 11/03/23 History (3 mL) subcutaneous pen linagliptin 5 mg tablet (Tradjenta) 5 mg PO DAILY 10/28/23 11/03/23 History metformin 500 mg tablet 500 mg PO BID 10/28/23 11/03/23 History metoprolol succinate 25 mg 25 mg PO DAILY 10/28/23 11/03/23 History tablet,extended release 24 hr mirtazapine 7.5 mg tablet 7.5 mg PO QHS 10/28/23 11/03/23 History jebxphxu-xs-ordbm 300 mcg-K 60 1 tab PO DAILY 10/28/23 11/02/23 History mcg-lycop 600 mcg-lutein 300 mcg tablet (Centrum Silver Men) cholecalciferol (vitamin D3) 25 25 mcg PO DAILY 10/31/23 11/02/23 History mcg (1,000 unit) capsule losartan 100 mg tablet 100 mg PO DAILY 10/31/23 11/03/23 History clopidogrel 75 mg tablet (Plavix) 75 mg PO DAILY #90 tabs 12/21/23 Unknown Rx warfarin 1 mg tablet 1.5 mg PO DAILY 02/24/24 Unknown History Allergy/AdvReac Type Severity Reaction Status Date / Time No Known Allergies Allergy Verified 02/24/24 15:39 Family History Mother Diabetes Heart disease Father Diabetes Surgical History History of amputation History of incision and drainage (09/22/20) History of angioplasty of peripheral vessel (01/02/10) History of lumbar laminectomy History of femoropopliteal bypass (2008) H/O coronary artery bypass surgery (05/01/20) History of mechanical aortic valve replacement History of left heart catheterization (04/23/20) Social History (Updated 02/24/24 @ 20:[address] Ale Hidalgo MD) household members: significant other Smoking Status: Current every day smoker tobacco type: cigarettes Smoking packs per day: 1 Smoking cigarettes per day: 20.0 alcohol intake: never substance use type: does not use caffeine: No ROS ROS Narrative Admission Review of Systems: CONSTITUTIONAL: No weight loss, fever, + chills, weakness or fatigue. HEENT: Eyes: No visual loss, blurred vision, double vision or yellow sclerae. Ears, Nose, Throat: No hearing loss, sneezing, congestion, runny nose or sore throat. SKIN: No rash or itching, lesions except + occasional various abrasion, staged ecchymoses, right lower extremity with erythema of the foot extending upward to below the calf, diabetic foot wound present. CARDIOVASCULAR: + Chronic issues with edema, orthopnea, not severe nor above baseline currently. No chest pain, chest pressure or chest discomfort, palpitations, syncopal events. RESPIRATORY: + Chronic dyspnea worse with exertion, occasional cough, occasional wheeze, not above baseline. No hemoptysis or productive sputum. GASTROINTESTINAL: + Decreased appetite. No nausea, vomiting or diarrhea, abdominal pain, melena, BRBPR. GENITOURINARY: No dysuria, frequency, urgency or retention. NEUROLOGICAL: No headache, dizziness, syncope, paralysis, ataxia, numbness or tingling in the extremities, focal weakness, change in bowel or bladder control, seizure. MUSCULOSKELETAL: + muscle, back pain, joint pain or stiffness. HEMATOLOGIC: + Chronic anemia, easy bleeding/bruising. LYMPHATICS: No enlarged nodes. No history of splenectomy. PSYCHIATRIC: + History of anxiety and depression. ENDOCRINOLOGIC: No reports of sweating, cold or heat intolerance. No polyuria or polydipsia. ALLERGIES: No history of asthma, hives, eczema or rhinitis. Vital Signs Vital Signs Vital Signs: 02/24/24 15:38 02/24/24 15:38 02/24/24 17:38 Temperature 98 F Temperature Source Temporal Pulse Rate 122 H 119 H 120 H Respiratory Rate 18 18 20 H Blood Pressure 122/60 H 118/70 145/59 H Blood Pressure Mean 80 86 87 Pulse Ox 100 100 99 Oxygen Delivery Method Room Air Room Air Room Air 02/24/24 19:00 02/24/24 19:13 Temperature 98.4 F 98.4 F Temperature Source Temporal Pulse Rate 119 H 119 H Respiratory Rate 20 H 20 H Blood Pressure 132/61 H 132/61 H Blood Pressure Mean 84 84 Pulse Ox 97 97 Oxygen Delivery Method Room Air Weight Weight: 187 lb 1.6 oz Body Mass Index (BMI) 26.1 Physical Exam Narrative Physical Examination: General: Awake, alert, oriented x 3 and cooperative, seated upright in the ED bed, fatigued. Skin: Normal color, normal turgor, no icterus, no cyanosis except for significant very staged ecchymoses, abrasions, notable bilateral lower extremity evidence of digit amputations, right lower extremity with erythema especially on the dorsal portion of the foot extending upward to mid calf with evidence of prior amputation of the great and second digit with additionally approximate quarter sized black eschar over the lateral MTP joint with mild erythema around this but no drainage with tenderness palpation. HEENT: AT/NC, EOMI, PERRLA, moderately dry MM, no carotid bruits or JVD noted. Lungs: Mildly diminished, greater bases, appropriate effort, no rales, ronchi or wheezing. Heart: Tachycardic with regular rhythm; no gallop, rub audible. Abdomen: Soft, overweight, NTTP, ND, mildly hyperactive BS, no appreciated HSM. Extremities: No cyanosis, no clubbing, see skin Neurological: Patient awake, alert, oriented as noted, cognitive function intact; pupils equally reactive to light and accommodation, cranial nerves grossly normal, moving all 4 extremities, no focal deficits, strength moderately to severely globally decreased secondary to acute presentation complaints underlying comorbidities. Psychiatric: Affect appears flat, fatigued, ill-appearing, no acute evidence of depressive or anxiety feelings but does have underlying history. Results Lab / Micro Data 02/24/24 17:00 02/24/24 17:00 Labs: Laboratory Results - last 24 hr 02/24/24 17:00: WBC 11.6 H, RBC 2.41 L, Hgb 7.3 L, Hct 22.8 L, MCV 94.6 H, MCH 30.3, MCHC 32.0, RDW Std Deviation 45.5 H, RDW Coeff of Estrada 13.2, Plt Count 241, MPV 9.8, Immature Gran % (Auto) 0.400, Neut % (Auto) 87.5 H, Lymph % (Auto) 4.3 L, Armstrong % (Auto) 7.2, Eos % (Auto) 0.4, Baso % (Auto) 0.2, Absolute Neuts (auto) 10.2 H, Absolute Lymphs (auto) 0.50 L, Nucleated RBC % 0, PT 40.6 H, INR 4.3 H*, APTT 107.7 H*, Sodium 134 L, Potassium 4.6, Chloride 104, Carbon Dioxide 23.0, Anion Gap 7, BUN 33 H, Creatinine 1.58 H, Estim Creat Clear Calc 45.67, Est GFR (MDRD) Af Amer 56 L, Est GFR (MDRD) Non-Af 46 L, BUN/Creatinine Ratio 20.9 H, Glucose 146 H, Lactic Acid 2.0, Calcium 8.6, Total Bilirubin 0.70, Direct Bilirubin 0.27, AST 49 H, ALT 37, Alkaline Phosphatase 120 H, Total Protein 7.5, Albumin 3.2, Globulin 4.3 H Imaging Radiology Impression Foot X-Ray 02/24/24 16:50 IMPRESSION: Soft tissue gas formation about the fifth MTP joint. No definite acute bony abnormalities. Electronically Signed: Sage Burrell MD at 17:40 EDT , Assessment & Plan Assessment/Plan (1) Diabetic foot infection: (2) Supratherapeutic INR: PLAN: Plan The patient is a 73 y/o M w/ PMHx: Valvular Heart Disease s/p AVR w/ [place] Mechanical valve 21 mm 04/2020, CAD s/p CABG w/ WAITE-LAD, free BRYAN to obtuse marginal 04/2020, HTN, HLD, COPD, PVD, PAD, Ischemic cardoimyopathy/HFcombinedEF per records, Hx VTE, Diabetes mellitus type II with chronic neuropathy and notable diabetic wound/foot infection history/osteomyelitis, Chronic anemia, CKD stage III based on most recent GFR trending although has vascillated and certainly could be stage II but point testing at acute situational visits, s/p recent OR with aortiogram and left lower extremity runoff with IVUS PT, femoropopliteal and external iliac artery angioplasty/stent PT per Dr. May and prior to this 11/04/2023 amputation of the left second toe per podiatry Dr. Lozano who now re-presents to the [facility] ED on 02/24/24 with history of onset of swelling upon awakening this a.m. to the right foot with difficulty seeing his feet well and unfortunately despite his significant PAD and CAD ongoing continued tobacco usage with recent elevated INR and recommendation for the last 3 days to hold his Coumadin but unclear if he has been following this recommendation but given noted right foot swelling out of norm prompted ED evaluation to be cautious. #1. Right lower extremity diabetic foot infection with suspected osteomyelitis with evidence of soft tissue gas formation near right fifth MTP: Will admit to PCU, will maintain on IV vancomycin and IV Zosyn pending Wound Cx as well as wound MRSA PCR, plan repeat CBC in AM, continue affected extremity elevation above heart when seated and in bed, monitor erythema outline with VS checks, continue to hold Coumadin with continued close INR monitoring given significant anemia with supratherapeutic INR but will need to immediately initiate heparin drip once INR is appropriate given patient [place] mechanical valve status post AVR replacement in addition to continued antiplatelet therapy given recent PCI intervention for underlying PAD per Dr. May. Will maintain n.p.o. status after midnight with continued consultation with Dr. May as well as Dr. Lyons. Additionally, will consult Cardiology for clearance give high risk. CRP, ESR requested for baseline. #2. Acute on chronic macrocytic anemia/iron deficiency anemia, suspect likely secondary to supratherapeutic INR with potential bleeding from diabetic foot wound as noted: Admission hemoglobin 7.3, MCV 94.6, INR supratherapeutic at 4.3, PTT 107.7, will continue to hold Coumadin but will attempt not to reverse if able given situational need with mechanical heart valve AVR, transition to heparin drip once INR appropriate at that time and unfortunately will need to continue antiplatelet therapies given recent PCI PAD intervention. Baseline prior hemoglobin noted primarily 10 however most recently 02/13/2024 hemoglobin 9.7, continue to closely trend and and given tachycardia and underlying cardiac disease will initiate PRBC administration 1 unit now with IV Lasix if needed given underlying ischemic heart disease/HF. Will continue iron supplementation. Guiac requested, Fe panel and ferritin requested. #3. Valvular Heart Disease: s/p AVR w/ [place] Mechanical valve 21 mm 04/2020, 10/30/22 echocardiogram with EF 40 to 45%, normal-appearing bioprosthetic AV with in comparison to 09/22/2021 echocardiogram improvement in the LV systolic function. Significantly complicates presentation, will continue to closely trend INR and avoid reversal if able given AVR mechanical valve with plan to transition to heparin drip following as likely will need operative intervention. #4. PVD, PAD: s/p recent OR with aortiogram and left lower extremity runoff with IVUS PT, femoropopliteal and external iliac artery angioplasty/stent PT per Dr. May, unfortunately given this recent intervention will need to very cautiously continue aspirin and Plavix, holding Coumadin as noted with continue close INR trending and transition to heparin drip once appropriate, continue to closely monitor hemoglobin and administer PRBC if appropriate. #5. CAD s/p CABG w/ WAITE-LAD, free BRYAN to obtuse marginal 04/2020, continue given situation with recent PCI with PAD underlying aspirin, Plavix, statin, metoprolol and losartan home regimen. #6. Hypertension: Continue home regimen including metoprolol, losartan, Lasix with hold parameters as needed given presentation as noted, PRN hydralazine. #7. Hyperlipidemia: We will continue patient home statin therapy. #8. Chronic COPD: Per current list on a regimen, will maintain on ATC budesonide therapy, PRN albuterol, HOB, IS parameters. #9. Ischemic cardoimyopathy/HFcombinedEF per records: Most recent echocardiogram as noted with EF 40 to 45%, will very judiciously hydrate and if PRBCs necessary will administer Lasix judiciously, given situation with recent PCI with PAD will continue aspirin, Plavix, statin, metoprolol, losartan and Lasix regimen with hold parameters as needed. If IV fluids are necessary will judiciously utilize. BNP requested for baseline. #10. Hx VTE: Given situation holding Coumadin, trending INR, once appropriate transition to heparin drip given inability to hold given mechanical valve situation. #11. Diabetes mellitus type II with chronic neuropathy and notable diabetic wound/foot infection history/osteomyelitis: Hold oral home regimen, continue home insulin regimen, ADA diet, accu checks w/ ISS, continue patient home chronic gabapentin regimen. #12. Anxiety and depression: We will continue patient home mirtazapine regimen. #13. CKD stage III based on most recent GFR trending although has vascillated and certainly could be stage II but point testing at acute situational visits: admission BUN/creatinine 33/1.58, GFR 46, baseline creatinine noted previously 0.9-1.3 although has vacillated and most recently 02/13/2024 1.48, certainly could be an acute insufficiency but difficult given vacillates. #14. GERD: Will maintain on PPI. #15. DVT prophylaxis: Holding Coumadin, continue to closely trend INR, transition to heparin drip once appropriate given AVR mechanical. #16. CODE status: Patient HCPOA is Mariam Bai and living will is currently in place. Discussed CODE status at length including difference between FULL code, DNR-CCA and DNR-CC status. Following discussions about the differences in these status, requested DNR-CCA, no intubation status. He is also uncertain if he wants to proceed with any kind of surgical intervention but willing to discuss and be evaluated. Advanced Care Planning Face to Face Time: 16 minutes. Charges/Coding Visit Charges Inpatient E&M: 62050 Init Hosp L3 Procedures Hospitalists Procedures: 82156 Advncd Care Plan 30 Min
[2024-02-24 20:34] VITALS: BMI 25.7
[2024-02-24 20:40] VITALS: BP 137/63; PULSE 106; RESP 20; TEMP 37.3; O2SAT 100
--- NOTE | 2024-02-24 20:46 | PCM.RX.CS ---
Consult Antibiotic Management Pharmacy has been consulted to manage selected antibiotic: Vancomycin Type of Intervention Type of Consult: New start Suspected Infection Suspected Infection: Skin/Soft tissue Labs Labs: Sodium 134 mmol/L (136-145) L 02/24/24 17:00 Potassium 4.6 mmol/L (3.5-5.1) 02/24/24 17:00 Chloride 104 mmol/L (98-107) 02/24/24 17:00 Carbon Dioxide 23.0 mmol/L (21.0-32.0) 02/24/24 17:00 Anion Gap 7 (5-15) 02/24/24 17:00 BUN 33 mg/dL (7-18) H 02/24/24 17:00 Creatinine 1.58 mg/dL (0.70-1.30) H 02/24/24 17:00 Est GFR (MDRD) Af Amer 56 mL/min (>60) L 02/24/24 17:00 Est GFR (MDRD) Non-Af 46 mL/min (>60) L 02/24/24 17:00 BUN/Creatinine Ratio 20.9 RATIO (10-20) H 02/24/24 17:00 Glucose 146 mg/dL (74-106) H 02/24/24 17:00 Goal Trough Goal Trough: 15-20 mcg/mL Pharmacy Plan for Drug Dosing Pharmacy Plan for Drug Dosing: NEW START IV VANCOMYCIN Consulting Physician: Dr. Hidalgo Indication: Diabetic foot infection Goal Trough: 15-20 SrCr: 1.58 CrCl: 45 mL/min Comments: Patient had initial dose of vancomycin 2000mg IV x1 in ED 02/25/24 @1847 Vancomycin Dose: 500mg IV Q12hr to start 02/25/24 @0700 Pending Level: 02/26/24 @0630, prior to 4th total dose of vancomycin per protocol Pharmacy Service will continue to monitor and adjust dosing as required.
[2024-02-24 21:05] LABS: Reflex Lactate? Y
[2024-02-24 21:13] VITALS: O2SAT 100
[2024-02-24 21:47] LABS: Erythrocyte Sedimentation Rate 23 mm/hr (0-20)
[2024-02-24 21:48] LABS: Ferritin 114 ng/mL (26-388); Iron 11 ug/dL (65-175); Iron Binding Capacity,Total 228 ug/dL (250-450); Magnesium 1.6 mg/dL (1.6-2.6); PERCENT IRON SATURATION 4.8 % (15.0-55.0)
[2024-02-24] MEDS: Insulin Lispro 100 UNIT/ML INSULN.PEN SC ×2 (22:04→22:05)
[2024-02-24] MEDS: Insulin Glargine-YFGN 100 UNIT/ML Pen 15 UNIT SC (22:05)
[2024-02-24] MEDS: Mirtazapine 15 MG Tablet 7.5 MG PO (22:06)
[2024-02-24] MEDS: Gabapentin 100 MG Capsule PO (22:06)
[2024-02-24] MEDS: Atorvastatin Calcium 40 MG Tablet PO (22:06)
[2024-02-24 22:07] LABS: Lactic Acid 1.6 mmol/L (0.4-1.9)
[2024-02-24 22:09] LABS: BNP,B-Type NATRIURETIC PEPTIDE 211.9 pg/mL (0-100)
[2024-02-24] MEDS: Piperacil/Tazobactam 3.375 GM in 0.9% Normal Saline (50mL MB+) 50 ML IV (22:16)
[2024-02-24 22:56] LABS: Bedside Glucose 163 mg/dL (74-106)
[2024-02-25] VITALS (14 sets, daily range): BP systolic 102–134; BP diastolic 50–78; PULSE 85–98; RESP 18–26; TEMP 36.6–37.7; O2SAT 94–98; BMI 25.9
[2024-02-25 03:12] LABS: Probe Check PASS; Staph aureus DNA By PCR POSITIVE (Negative)
[2024-02-25 03:14] LABS: M R Staph aureus DNA By PCR POSITIVE (Negative)
[2024-02-25 05:39] LABS: Absolute Lymphocyte Count 0.95 X10^3/uL (0.83-4.51); Absolute Neutrophil Count 7.1 X10^3/uL (2.0-7.7); Basophil# 0.03 X10^3/uL; Basophil% 0.3 % (0-1); Eosinophil# 0.18 X10^3/uL; Hematocrit 22.7 % (40-54); Hemoglobin 7.5 g/dL (13.0-16.5); Lymphocyte # 0.95 X10^3/ul (0.83-4.51); Lymphocyte % 10.4 % (19-41); Mean Corpuscular Hgb 30.9 pg (27.0-32.0); Mean Corpuscular Volume 93.4 fL (80-94); Mean Platelet Vol. 9.9 fl (6.2-12.0); Monocyte# 0.88 X10^3/uL; Monocyte% 9.6 % (0-10); NRBC Flagged by Analyzer 0 % (0-5); Neutrophil # 7.06 X10^3/uL (2.7-7.7); Neutrophil % 76.9 % (47-70); Platelet Count 228 K/mm3 (150-450); RBC Distribution Width SD 44.6 fl (35.1-43.9); Red Blood Count 2.43 M/mm3 (4.6-6.2); White Blood Count 9.2 K/mm3 (4.4-11.0)
[2024-02-25 05:47] LABS: International Normalized Ratio 3.9; Prothrombin Time (Protime)PT. 38.1 SECONDS (11.7-14.9)
[2024-02-25 06:03] LABS: ALB/GLOB Ratio 0.7 RATIO (0.9-2.4); AST(SGOT) 52 U/L (15-37); Alanine Aminotransfer ALT/SGPT 35 U/L (16-61); Albumin, Serum 2.6 g/dL (3.2-5.0); Alkaline Phosphatase 109 U/L (45-117); Anion Gap 7 (5-15); BUN 28 mg/dL (7-18); BUN/Creat Ratio 23.1 RATIO (10-20); Calcium,Total 8.2 mg/dL (8.5-10.1); Chloride 105 mmol/L (98-107); Creatinine, Serum 1.21 mg/dL (0.70-1.30); EST Glomerular Filtration Rate 63 mL/min (>60); Est Glom Filt Rate - Afr Amer 76 mL/min (>60); Estimated Creatinine Clearance 59.64 ml/min; Globulin 3.8 g/dL (2.2-4.2); Glucose 145 mg/dL (74-106); Potassium 3.6 mmol/L (3.5-5.1); Protein, Total 6.4 g/dL (6.4-8.2); Sodium Level 133 mmol/L (136-145)
[2024-02-25] MEDS: Piperacil/Tazobactam 3.375 GM in 0.9% Normal Saline (50mL MB+) 50 ML IV ×3 (06:23→20:47)
[2024-02-25] MEDS: Budesonide Respules 0.5 MG/2 ML AMPUL.NEB. INHALATION ×2 (06:55→19:09)
[2024-02-25] MEDS: Vancomycin IV 500 MG/100 ML BAG 100 MG IV ×2 (07:51→18:38)
--- NOTE | 2024-02-25 09:50 | CASEMGMT ---
Addendum entered by Marlen Levin 02/25/24 10:56: Also discussed CCN but pt declines this as well. Pt made aware, if he is able to discharge home and goes w/out HHC, that if he changes his mind once he returns home, to f/u w/Dr Hernandez about HHC. He voices understanding. Original Note: RN CM HOSIERY KNITTER CM?to room to meet with patient for initial transition planning/care coordination assessment. RN CM?introduced self and role at [facility]. Pt voices understanding and consents to assessment?at this time. Pt resting in bed in no distress at this time. Pt is A/O at this time and answers all questions appropriately. Care providers, pharmacy, and demographics verified/updated at this time. PCP: Dr Hernandez. Pt states saw him a couple months ago for annual check-up and plans to see him for hospital f/u after discharging from [facility]. Specialists: Dr Morton-cardiology, Dr May-vascular. Pt also [facility]. Preferred Pharmacy: [facility] @ [address]. Otherwise gets meds through the mail from [facility] Dose--meds are pre-packaged AM/PM separately. Insurance: [facility] Dual/[place]. Prescription Benefit: Yes Living Will/HPOA: Has LW and HCPOA, who is his cousin, Mariam Bai ELIZAOK: Cousin, Mariam. Cas, Mariam's ex-. Living Arrangements: Pt lives w/cousin, Mariam, and her ex-, in one-story home w/ramp entrance. Pt states he is independent w/bathing and dressing himself, except he is unable to bend down well enough to reach his feet/lower legs and Mariam will assist him w/BLE care. He manages his own medications. All 3 of them go grocery shopping together and take turns making meals. Pt independent w/doing cleaning in his own living area and does his own laundry. Transportation: Mariam or Cas DME: Pt has a shower chair, cane, rollator, W/C, medical alert button, functioning glucometer w/supplies, sufficient supply of insulin and supplies for administration, INR machine, and medical alert button. Pt states no need for further DME at this time. HHC/SNF: Pt has had HHC in the past and has been to [place], [facility], and [facility]. He was @ [facility] until about 4 months ago. When he was discharged from [facility] he moved in w/cousin, Mariam, and has been living w/her ever since then. Discussed discharge planning. Pt wishes to return home, if able. He states he would, though, go to a SNF if necessary, and states [facility] ([facility]) would be his 1st preference and declines wanting list of other SNF options, stating he did like it there. If pt able to return home, he declines wanting any HHC for SN or therapy, stating he feels he is managing well @ home and states Mariam would be able to wound care/dressing changes, if needed. Pt aware ID, podiatry, and vascular consults are pending and course of treatment is unknown at this time. He is also aware therapy evals are pending. RN HIEN informed him either SW or CM would f/u with him once course of treatment (ie: possible IV atb's, wound care) is known and if any recommendations received from therapy. He voices understanding. CM?to follow for further discharge planning/needs. Pt voices no further concerns/needs at this time. Advised pt to ask for CM?if any further questions/concerns/needs arise. Voices understanding. PLAN: TBD pending course of treatment and progress w/therapy. Yehuda HENDERSON RN, CM
[2024-02-25 10:28] LABS: Hemoglobin A1c 5.8 % (3.8-5.6)
[2024-02-25] MEDS: Gabapentin 100 MG Capsule PO ×2 (11:01→20:47)
[2024-02-25] MEDS: Pantoprazole Sodium 40 MG Tablet PO (11:02)
[2024-02-25] MEDS: DOXEPIN HCL 50 MG CAPSULE PO (11:02)
[2024-02-25 11:51] LABS: Bedside Glucose 124 mg/dL (74-106)
--- NOTE | 2024-02-25 12:45 | CON.PCM_ITS ---
Assessment & Plan Assessment/Plan (1) Gas gangrene: PLAN: Patient was examined and evaluated. All findings were discussed with the patient. All questions were answered to the patient satisfaction. Radiographs: Right foot, show evidence of gas gangrene versus soft tissue air with minimal cortical defect to the fifth metatarsal. Concern for osteomyelitis. No plan for MRI to the right foot as this will not change surgical intervention at this time. Excisional debridement down to and including subcutaneous tissue, muscle, fascia and bone to the right foot ulceration with a #15 blade without incident. Predebridement measurement was eschar. Postdebridement measurement is 2.5 x 2.2 x 0.5 cm. Culture taken of the right foot after debridement. The right foot was dressed with Betadine paint, Aquacel Ag, dry sterile dressing and a single-layer 4 inch Donte wrap lightly applied to the right lower extremity. Please change dressing daily with Betadine soaked gauze, dry sterile dressing and 4 inch Donte wrap. Recommend vascular consult for surgical clearance to the right lower extremity. Recommend infectious disease consult for PICC line after surgery. Plan for surgical intervention to the right lower extremity during hospital stay. Surgical plan will consist of transmetatarsal amputation with muscle flap closure and tendo Achilles lengthening to the right lower extremity. Please clear the patient medically with recommendations. Plan for surgery will be either Tuesday versus Tuesday of next week. WBC: 9.2 ESR: 23 LA: 1.6 GLU: 145 CRP: 215.0 PVR: (02/01/2024): Right HERNESTO?0.79, left HERNESTO?1.37 Cx: Pending Medicine: On board, medical management, IV antibiotics: Cardiology: Consult pending Podiatry will continue to follow while patient is in house. Will plan for surgery after clearance Tuesday versus Tuesday of next week. Please reach out to Dr. Lyons with any questions or concerns. (2) Cellulitis: QUALIFIERS: Site of cellulitis: extremity Site of cellulitis of extremity: lower extremity Laterality: right Qualified Code(s): L03.115 - Cellulitis of right lower limb (3) Tightness of right heel cord: (4) Non-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: HPI Consult Data Date of Consult: 02/25/24 HPI Narrative Reason for Consultation: Right foot infection HPI Narrative: RAPHAEL HADDAD, is a 73 M who presented w/ PMHx: Valvular Heart Disease s/p AVR w/ [facility] Mechanical valve 21 mm 04/2020, CAD s/p CABG w/ [facility], free BRYAN to obtuse marginal 04/2020, HTN, HLD, COPD, PVD, PAD, Ischemic cardoimyopathy/HFcombinedEF per records, Hx VTE, Diabetes mellitus type II with chronic neuropathy and notable diabetic wound/foot infection history/osteomyelitis, Chronic anemia, CKD stage III based on most recent GFR trending although has vascillated and certainly could be stage II but point testing at acute situational visits, s/p recent OR with aortiogram and left lower extremity runoff with IVUS PT, femoropopliteal and external iliac artery angioplasty/stent PT per Dr. May and prior to this 11/04/2023 amputation of the left second toe per podiatry Dr. Lozano who now re-presents to the [facility] ED on 02/24/24 with history of onset of swelling upon awakening this a.m. to the right foot with difficulty seeing his feet well and unfortunately despite his significant PAD and CAD ongoing continued tobacco usage with recent elevated INR and recommendation for the last 3 days to hold his Coumadin but unclear if he has been following this recommendation but given noted right foot swelling out of norm prompted ED evaluation to be cautious. Patient showed evidence of a large size eschar to the plantar aspect of the centimeter proximal to the right foot when being evaluated in the emergency department. Radiograph showed evidence of soft tissue air versus gas gangrene. No evidence of cortical defect was noted on x-ray. Podiatry was consulted for evaluation and possible surgical care. Patient denies any trauma. Denies constitutional symptoms. No other pedal complaints at this time. [facility] Medical History (Updated 02/25/24 @ 13:[address] Roverto Lyons, KRYSTAL) Non-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 Peripheral vascular occlusive disease Atherosclerosis of [place] arteries of right leg with ulceration of other part of foot Diabetic ulcer of toe of left foot associated with type 2 diabetes mellitus Ulcer of toe of left foot Atherosclerosis of [place] arteries of left leg with ulceration of other part of foot Wears glasses Alcohol use Insulin dependent diabetes mellitus Back pain Syncope Dietary restriction Cardiology follow-up encounter History of rheumatic fever ZOFIA (acute kidney injury) Recurrent right pleural effusion Osteomyelitis of toe of right foot Non-pressure chronic ulcer of other part of left foot with fat layer exposed Acute exacerbation of CHF (congestive heart failure) Anticoagulant long-term use Acute and chronic respiratory failure with hypercapnia Encephalopathy acute Acute hypercapnic respiratory failure Atherosclerosis of lower extremity with ulceration COPD (chronic obstructive pulmonary disease) Inability to walk Adult failure to thrive CHF (congestive heart failure) Smoker Congestive heart failure Sternal wound infection 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 MSSA (methicillin susceptible Staphylococcus aureus) infection History of non-ST elevation myocardial infarction (NSTEMI) (04/23/20) Non-healing surgical wound (05/01/20) [facility] current use of 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 Chronic combined systolic and diastolic CHF (congestive heart failure) Type 2 diabetes mellitus Atherosclerosis of coronary artery without angina pectoris Nicotine dependence Ischemic cardiomyopathy Secondary pulmonary arterial hypertension Essential (primary) hypertension Nonrheumatic aortic (valve) stenosis 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 Osteomyelitis Diabetic foot infection Bleeding disorder Ulcer of right foot with fat layer exposed COPD (chronic obstructive pulmonary disease) Hyperlipidemia DVT (deep venous thrombosis) GERD (gastroesophageal reflux disease) Home Medications ?Medication ?Instructions ?Recorded ?Last Taken ?Type atorvastatin 40 mg tablet 40 mg PO DAILY cholesterol 11/12/20 11/03/23 History ferrous sulfate 325 mg (65 mg 325 mg PO DAILY 10/29/22 11/02/23 History iron) tablet furosemide 40 mg tablet 40 mg PO DAILY #0 tabs 11/12/22 11/02/23 Rx cyclobenzaprine 10 mg tablet 10 mg PO TID PRN Muscle Pain 12/11/22 11/02/23 History insulin lispro 100 unit/mL 5 unit subcut ACHS 12/11/22 11/03/23 History subcutaneous pen (Humalog KwikPen (U-100) Insulin) pantoprazole 40 mg tablet,delayed 40 mg PO QDAY 10/04/23 11/02/23 History release aspirin 81 mg tablet,delayed 81 mg PO DAILY 10/28/23 11/02/23 History release (Adult Aspirin Regimen) doxepin 50 mg capsule 50 mg PO DAILY 10/28/23 11/02/23 History gabapentin 100 mg capsule 100 mg PO BID 10/28/23 11/02/23 History insulin glargine-yfgn 100 unit/mL 15 unit subcut QHS 10/28/23 11/03/23 History (3 mL) subcutaneous pen linagliptin 5 mg tablet (Tradjenta) 5 mg PO DAILY 10/28/23 11/03/23 History metformin 500 mg tablet 500 mg PO BID 10/28/23 11/03/23 History metoprolol succinate 25 mg 25 mg PO DAILY 10/28/23 11/03/23 History tablet,extended release 24 hr mirtazapine 7.5 mg tablet 7.5 mg PO QHS 10/28/23 11/03/23 History gpiaffbe-ya-rurbw 300 mcg-K 60 1 tab PO DAILY 10/28/23 11/02/23 History mcg-lycop 600 mcg-lutein 300 mcg tablet (Centrum Silver Men) cholecalciferol (vitamin D3) 25 25 mcg PO DAILY 10/31/23 11/02/23 History mcg (1,000 unit) capsule losartan 100 mg tablet 100 mg PO DAILY 10/31/23 11/03/23 History clopidogrel 75 mg tablet (Plavix) 75 mg PO DAILY #90 tabs 12/21/23 Unknown Rx warfarin 1 mg tablet 1.5 mg PO DAILY 02/24/24 Unknown History Allergy/AdvReac Type Severity Reaction Status Date / Time No Known Allergies Allergy Verified 02/24/24 15:39 Family History Mother Diabetes Heart disease Father Diabetes Surgical History History of amputation History of incision and drainage (09/22/20) History of angioplasty of peripheral vessel (01/02/10) History of lumbar laminectomy History of femoropopliteal bypass (2008) H/O coronary artery bypass surgery (05/01/20) History of mechanical aortic valve replacement History of left heart catheterization (04/23/20) Social History household members: significant other Smoking Status: Current every day smoker tobacco type: cigarettes Smoking packs per day: 1 Smoking cigarettes per day: 20.0 alcohol intake: never substance use type: does not use caffeine: No Physical Exam Narrative Vascular: DP PT pulses are faintly palpable right extremity. Skin temperature is warm to warm from proximal ankle to distal digit with focal increase appreciated to right foot. Nonpitting edema appreciated to the right lower extremity. Neurological: Light touch intact. Patient does not respond to painful stimuli. 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 Evidence of large eschar with malodor and positive probe to bone to the plantar aspect of the subfifth metatarsal head right foot. Ulceration measures 2.5 x 2.2 x 0.5 cm. Excisional debridement down to and including subcutaneous tissue, muscle, fascia and bone to the right foot ulceration with a #15 blade without incident. Predebridement measurement was eschar. Postdebridement measurement is 2.5 x 2.2 x 0.5 cm. Musculoskeletal: No pain to palpation to the full-thickness ulceration to the right foot. No pain with calf pressure. Lab / Micro Data 02/25/24 05:18 02/25/24 05:18 Labs: Laboratory Results - last 24 hr 02/24/24 17:00: WBC 11.6 H, RBC 2.41 L, Hgb 7.3 L, Hct 22.8 L, MCV 94.6 H, MCH 30.3, MCHC 32.0, RDW Std Deviation 45.5 H, RDW Coeff of Estrada 13.2, Plt Count 241, MPV 9.8, Immature Gran % (Auto) 0.400, Neut % (Auto) 87.5 H, Lymph % (Auto) 4.3 L, [place] % (Auto) 7.2, Eos % (Auto) 0.4, Baso % (Auto) 0.2, Absolute Neuts (auto) 10.2 H, Absolute Lymphs (auto) 0.50 L, Nucleated RBC % 0, ESR 23 H, PT 40.6 H, I NR 4.3 H*, APTT 107.7 H*, Sodium 134 L, Potassium 4.6, Chloride 104, Carbon Dioxide 23.0, Anion Gap 7, BUN 33 H, Creatinine 1.58 H, Estim Creat Clear Calc 45.67, Est GFR (MDRD) Af Amer 56 L, Est GFR (MDRD) Non-Af 46 L, BUN/Creatinine Ratio 20.9 H, Glucose 146 H, Lactic Acid 2.0, Calcium 8.6, Magnesium 1.6, Iron 11 L, TIBC 228 L, Iron Saturation 4.8 L, Ferritin 114, Total Bilirubin 0.70, Direct Bilirubin 0.27, AST 49 H, ALT 37, Alkaline Phosphatase 120 H, C-React Prot Ext Range 215.00 H, B-Natriuretic Peptide 211.9 H, Total Protein 7.5, Albumin 3.2, Globulin 4.3 H 02/24/24 21:30: Lactic Acid 1.6, Blood Type B POSITIVE, Antibody Screen NEGATIVE, Crossmatch See Detail 02/24/24 21:55: POC Glucose 163 H 02/25/24 01:52: S.aureus Protein A PCR POSITIVE H, MRSA (PCR) POSITIVE H 02/25/24 05:18: WBC 9.2, RBC 2.43 L, Hgb 7.5 L, Hct 22.7 L, MCV 93.4, MCH 30.9, MCHC 33.0, RDW Std Deviation 44.6 H, RDW Coeff of Estrada 13.0, Plt Count 228, MPV 9.9, Immature Gran % (Auto) 0.800, Neut % (Auto) 76.9 H, Lymph % (Auto) 10.4 L, [place] % (Auto) 9.6, Eos % (Auto) 2.0, Baso % (Auto) 0.3, Absolute Neuts (auto) 7.1, Absolute Lymphs (auto) 0.95, Nucleated RBC % 0, PT 38.1 H, INR 3.9, Sodium 133 L, Potassium 3.6, Chloride 105, Carbon Dioxide 21.0, Anion Gap 7, BUN 28 H, Creatinine 1.21, Estim Creat Clear Calc 59.64, Est GFR (MDRD) Af Amer 76, Est GFR (MDRD) Non-Af 63, BUN/Creatinine Ratio 23.1 H, Glucose 145 H, Hemoglobin A1c 5.8 H, Calcium 8.2 L, Total Bilirubin 0.70, AST 52 H, ALT 35, Alkaline Phosphatase 109, Total Protein 6.4, Albumin 2.6 L, Globulin 3.8, A lbumin/Globulin Ratio 0.7 L 02/25/24 11:33: POC Glucose 124 H Imaging Radiology Impression Foot X-Ray 02/24/24 16:50 IMPRESSION: Soft tissue gas formation about the fifth MTP joint. No definite acute bony abnormalities. Electronically Signed: Sage Burrell MD at 17:40 EDT ,
--- NOTE | 2024-02-25 13:44 | PCM.PN.HOSP ---
Subjective Subjective Doing well, no issues overnight Objective Data Objective Data Vital Signs: Vital Signs Temp Pulse Resp BP Pulse Ox O2 Del Method 98.0 F 90 20 H 106/59 L 96 Room Air 02/25/24 12:00 02/25/24 12:00 02/25/24 12:00 02/25/24 12:00 02/25/24 12:00 02/25/24 12:00 Oxygen Delivery Method Room Air Weight: 185 lb 10.067 oz Body Mass Index (BMI) 25.9 Intake & Output: Intake and Output for Last 24 Hours 02/24/24 02/25/24 02/26/24 03:59 03:59 03:59 Intake Total 691 / 691 200 / 200 Output Total 150 / 150 750 / 750 Balance 541 / 541 -550 / -550 Lab / Micro Data 02/25/24 05:18 02/25/24 05:18 Labs: Laboratory Results - last 24 hr 02/24/24 17:00: WBC 11.6 H, RBC 2.41 L, Hgb 7.3 L, Hct 22.8 L, MCV 94.6 H, MCH 30.3, MCHC 32.0, RDW Std Deviation 45.5 H, RDW Coeff of Estrada 13.2, Plt Count 241, MPV 9.8, Immature Gran % (Auto) 0.400, Neut % (Auto) 87.5 H, Lymph % (Auto) 4.3 L, [place] % (Auto) 7.2, Eos % (Auto) 0.4, Baso % (Auto) 0.2, Absolute Neuts (auto) 10.2 H, Absolute Lymphs (auto) 0.50 L, Nucleated RBC % 0, ESR 23 H, PT 40.6 H, INR 4.3 H*, APTT 107.7 H*, Sodium 134 L, Potassium 4.6, Chloride 104, Carbon Dioxide 23.0, Anion Gap 7, BUN 33 H, Creatinine 1.58 H, Estim Creat Clear Calc 45.67, Est GFR (MDRD) Af Amer 56 L, Est GFR (MDRD) Non-Af 46 L, BUN/Creatinine Ratio 20.9 H, Glucose 146 H, Lactic Acid 2.0, Calcium 8.6, Magnesium 1.6, Iron 11 L, TIBC 228 L, Iron Saturation 4.8 L, Ferritin 114, Total Bilirubin 0.70, Direct Bilirubin 0.27, AST 49 H, ALT 37, Alkaline Phosphatase 120 H, C-React Prot Ext Range 215.00 H, B-Natriuretic Peptide 211.9 H, Total Protein 7.5, Albumin 3.2, Globulin 4.3 H 02/24/24 21:30: Lactic Acid 1.6, Blood Type B POSITIVE, Antibody Screen NEGATIVE, Crossmatch See Detail 02/24/24 21:55: POC Glucose 163 H 02/25/24 01:52: S.aureus Protein A PCR POSITIVE H, MRSA (PCR) POSITIVE H 02/25/24 05:18: WBC 9.2, RBC 2.43 L, Hgb 7.5 L, Hct 22.7 L, MCV 93.4, MCH 30.9, MCHC 33.0, RDW Std Deviation 44.6 H, RDW Coeff of Estrada 13.0, Plt Count 228, MPV 9.9, Immature Gran % (Auto) 0.800, Neut % (Auto) 76.9 H, Lymph % (Auto) 10.4 L, [place] % (Auto) 9.6, Eos % (Auto) 2.0, Baso % (Auto) 0.3, Absolute Neuts (auto) 7.1, Absolute Lymphs (auto) 0.95, Nucleated RBC % 0, PT 38.1 H, INR 3.9, Sodium 133 L, Potassium 3.6, Chloride 105, Carbon Dioxide 21.0, Anion Gap 7, BUN 28 H, Creatinine 1.21, Estim Creat Clear Calc 59.64, Est GFR (MDRD) Af Amer 76, Est GFR (MDRD) Non-Af 63, BUN/Creatinine Ratio 23.1 H, Glucose 145 H, Hemoglobin A1c 5.8 H, Calcium 8.2 L, Total Bilirubin 0.70, AST 52 H, ALT 35, Alkaline Phosphatase 109, Total Protein 6.4, Albumin 2.6 L, Globulin 3.8, Albumin/Globulin Ratio 0.7 L 02/25/24 11:33: POC Glucose 124 H Micro: Microbiology 02/25/24 01:52 Wound - Right Foot Gram Stain - Final Radiography Diagnostic Testing: Radiology Impression Foot X-Ray 02/24/24 16:50 IMPRESSION: Soft tissue gas formation about the fifth MTP joint. No definite acute bony abnormalities. Electronically Signed: Sage Burrell MD at 17:40 EDT Reading Location ID and State: [facility] / [place] Tel , Service support , Physical Exam Narrative General: Alert, Oriented x3, Cooperative, No apparent distress HEENT: Atraumatic, PERRLA, EOMI, Normocephalic Oral: Moist Mucosa Neck: Supple, No JVD Lungs: Diminished, Normal air movement, No rhonchi, No wheeze, No rales Cardiovascular: Regular rate, Regular Rhythm, Normal S1, Normal S2, No murmurs Abdomen: Soft, Non Tender, Non-Distended, No Hepato-splenomegaly Extremities: No edema, Capillary Refill Less than 3 Seconds Skin: Right lower extremity wrapped, dressing in place Musculoskeletal: No Tenderness to Palpation of Joints or Extremities Neurological: No focal neurological deficits, Motor Exam 5/5 strength throughout, Sensory exam intact to light touch and pain Psych/Mental Status: Normal Affect, Appropriate Assessment & Plan Assessment/Plan (1) Diabetic foot infection: (2) Supratherapeutic INR: PLAN: Plan 1. Right lower extremity diabetic foot infection with likely osteomyelitis ? Concern for gas gangrene ? Continue broad-spectrum antibiotics ? Appreciate podiatry's assistance, plan for operative intervention ? Will consult vascular surgery prior for evaluation of any further intervention to assist with healing, he did have recent ABIs with 0.79 on the right ? Cultures are pending 2. CAD status post CABG/PAD status post femoral-popliteal bypass/essential HTN/HLD/aortic valve disease/chronic systolic CHF ? Has [facility] mechanical valve ? INR is supratherapeutic, will hold Coumadin but not reverse in anticipation of surgery ? Echo 10/30/2022 with an EF of 40 to 45% and normal AV bioprosthetic valve ? Continue with aspirin and Plavix ? Blood pressure stable ? Can continue with his home blood pressure medications, will monitor and make adjustments as necessary 3. DM2 with neuropathy ? Continue to hold his home medications ? Sign scale insulin ? Accu-Cheks ACHS ? Will monitor make adjustments as necessary 4. Iron deficiency anemia ? Iron levels low ferritin, is normal ? Continue with his oral iron replacement ? May benefit from a dose of Venofer as his ferritin may be slightly reactive to the inflammation in his lower extremities so could be falsely elevated 5. Anxiety/depression ? Stable ? Continue with his home medications 6. Chronic COPD ? Stable ? Continue with his home inhalers ? Not in exacerbation 7. GERD ? Stable ? Continue with PPI DVT: Supratherapeutic INR Charges/Coding Visit Charges Inpatient E&M: 46998 Subs Hosp L2
--- NOTE | 2024-02-25 14:32 | CON.PCM.CA_ITS ---
Assessment & Plan Assessment/Plan (1) Preoperative cardiovascular examination: PLAN: No further cardiac workup required prior to foot surgery. Patient is at low risk for perioperative cardiac complications. Okay to hold Coumadin at this time. Check INR daily. When the INR is less than 2, start patient on either IV heparin or Lovenox. Postoperatively when okay with surgery, restart Coumadin and bridged with Lovenox or heparin until therapeutic INR is achieved. HPI Consult Data Date of Consult: 02/25/24 HPI Narrative Reason for Consultation: Preoperative evaluation HPI Narrative: 72-year-old gentleman with a history of CABG and aortic valve replacement. Patient did undergo bypass surgery, aortic valve replacement on May 01, 2020. He had a WAITE to the LAD, free BRYAN to the obtuse marginal, aortic valve replacement with a 21 mm [place] mechanical valve. He also has a history of hypertension, cardiomyopathy, hyperlipidemia, COPD, diabetes, peripheral vascular disease. He has had recent procedures without any cardiovascular complications. Patient is currently admitted with right foot infection. Patient denies any new cardiac complaints. [facility] Medical History (Updated 02/25/24 @ 14:[address] Giancarlo Gee MD) Non-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 Peripheral vascular occlusive disease Atherosclerosis of [place] arteries of right leg with ulceration of other part of foot Diabetic ulcer of toe of left foot associated with type 2 diabetes mellitus Ulcer of toe of left foot Atherosclerosis of [place] arteries of left leg with ulceration of other part of foot Wears glasses Alcohol use Insulin dependent diabetes mellitus Back pain Syncope Dietary restriction Cardiology follow-up encounter History of rheumatic fever ZOFIA (acute kidney injury) Recurrent right pleural effusion Osteomyelitis of toe of right foot Non-pressure chronic ulcer of other part of left foot with fat layer exposed Acute exacerbation of CHF (congestive heart failure) Anticoagulant long-term use Acute and chronic respiratory failure with hypercapnia Encephalopathy acute Acute hypercapnic respiratory failure Atherosclerosis of lower extremity with ulceration COPD (chronic obstructive pulmonary disease) Inability to walk Adult failure to thrive CHF (congestive heart failure) Smoker Congestive heart failure Sternal wound infection 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 MSSA (methicillin susceptible Staphylococcus aureus) infection History of non-ST elevation myocardial infarction (NSTEMI) (04/23/20) Non-healing surgical wound (05/01/20) prison current use of 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 Chronic combined systolic and diastolic CHF (congestive heart failure) Type 2 diabetes mellitus Atherosclerosis of coronary artery without angina pectoris Nicotine dependence Ischemic cardiomyopathy Secondary pulmonary arterial hypertension Essential (primary) hypertension Nonrheumatic aortic (valve) stenosis 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 Osteomyelitis Diabetic foot infection Bleeding disorder Ulcer of right foot with fat layer exposed COPD (chronic obstructive pulmonary disease) Hyperlipidemia DVT (deep venous thrombosis) GERD (gastroesophageal reflux disease) Home Medications ?Medication ?Instructions ?Recorded ?Last Taken ?Type atorvastatin 40 mg tablet 40 mg PO DAILY cholesterol 11/12/20 11/03/23 History ferrous sulfate 325 mg (65 mg 325 mg PO DAILY 10/29/22 11/02/23 History iron) tablet furosemide 40 mg tablet 40 mg PO DAILY #0 tabs 11/12/22 11/02/23 Rx cyclobenzaprine 10 mg tablet 10 mg PO TID PRN Muscle Pain 12/11/22 11/02/23 History insulin lispro 100 unit/mL 5 unit subcut ACHS 12/11/22 11/03/23 History subcutaneous pen (Humalog KwikPen (U-100) Insulin) pantoprazole 40 mg tablet,delayed 40 mg PO QDAY 10/04/23 11/02/23 History release aspirin 81 mg tablet,delayed 81 mg PO DAILY 10/28/23 11/02/23 History release (Adult Aspirin Regimen) doxepin 50 mg capsule 50 mg PO DAILY 10/28/23 11/02/23 History gabapentin 100 mg capsule 100 mg PO BID 10/28/23 11/02/23 History insulin glargine-yfgn 100 unit/mL 15 unit subcut QHS 10/28/23 11/03/23 History (3 mL) subcutaneous pen linagliptin 5 mg tablet (Tradjenta) 5 mg PO DAILY 10/28/23 11/03/23 History metformin 500 mg tablet 500 mg PO BID 10/28/23 11/03/23 History metoprolol succinate 25 mg 25 mg PO DAILY 10/28/23 11/03/23 History tablet,extended release 24 hr mirtazapine 7.5 mg tablet 7.5 mg PO QHS 10/28/23 11/03/23 History eigeqmwp-cn-gcpiw 300 mcg-K 60 1 tab PO DAILY 10/28/23 11/02/23 History mcg-lycop 600 mcg-lutein 300 mcg tablet (Centrum Silver Men) cholecalciferol (vitamin D3) 25 25 mcg PO DAILY 10/31/23 11/02/23 History mcg (1,000 unit) capsule losartan 100 mg tablet 100 mg PO DAILY 10/31/23 11/03/23 History clopidogrel 75 mg tablet (Plavix) 75 mg PO DAILY #90 tabs 12/21/23 Unknown Rx warfarin 1 mg tablet 1.5 mg PO DAILY 02/24/24 Unknown History Allergy/AdvReac Type Severity Reaction Status Date / Time No Known Allergies Allergy Verified 02/24/24 15:39 Family History Mother Diabetes Heart disease Father Diabetes Surgical History History of amputation History of incision and drainage (09/22/20) History of angioplasty of peripheral vessel (01/02/10) History of lumbar laminectomy History of femoropopliteal bypass (2008) H/O coronary artery bypass surgery (05/01/20) History of mechanical aortic valve replacement History of left heart catheterization (04/23/20) Social History household members: significant other Smoking Status: Current every day smoker tobacco type: cigarettes Smoking packs per day: 1 Smoking cigarettes per day: 20.0 alcohol intake: never substance use type: does not use caffeine: No Physical Exam Const alert HEENT normocephalic Psych mental status grossly normal Risk Stratification Risk Stratification Applicable: No Objective Data Vital Signs: Vital Signs Temp Pulse Resp BP Pulse Ox O2 Del Method 98.0 F 90 20 H 106/59 L 96 Room Air 02/25/24 12:00 02/25/24 12:00 02/25/24 12:00 02/25/24 12:00 02/25/24 12:00 02/25/24 12:00 Oxygen Delivery Method Room Air Weight: 185 lb 10.067 oz Body Mass Index (BMI) 25.9 Intake & Output: Intake and Output for Last 24 Hours 02/23/24 02/24/24 02/25/24 23:59 23:59 23:59 Intake Total 640 / 640 251 / 251 Output Total 150 / 150 750 / 750 Balance 490 / 490 -499 / -499 Lab / Micro Data 02/25/24 05:18 02/25/24 05:18 Labs: Laboratory Results - last 24 hr 02/24/24 17:00: WBC 11.6 H, RBC 2.41 L, Hgb 7.3 L, Hct 22.8 L, MCV 94.6 H, MCH 30.3, MCHC 32.0, RDW Std Deviation 45.5 H, RDW Coeff of [place]str[place] 13.2, Plt Count 241, MPV 9.8, Immature Gran % (Auto) 0.400, Neut % (Auto) 87.5 H, Lymph % (Auto) 4.3 L, Towns % (Auto) 7.2, Eos % (Auto) 0.4, Baso % (Auto) 0.2, Absolute Neuts (auto) 10.2 H, Absolute Lymphs (auto) 0.50 L, Nucleated RBC % 0, ESR 23 H, PT 40.6 H, I NR 4.3 H*, APTT 107.7 H*, Sodium 134 L, Potassium 4.6, Chloride 104, Carbon Dioxide 23.0, Anion Gap 7, BUN 33 H, Creatinine 1.58 H, Estim Creat Clear Calc 45.67, Est GFR (MDRD) Af Amer 56 L, Est GFR (MDRD) Non-Af 46 L, BUN/Creatinine Ratio 20.9 H, Glucose 146 H, Lactic Acid 2.0, Calcium 8.6, Magnesium 1.6, Iron 11 L, TIBC 228 L, Iron Saturation 4.8 L, Ferritin 114, Total Bilirubin 0.70, Direct Bilirubin 0.27, AST 49 H, ALT 37, Alkaline Phosphatase 120 H, C-React Prot Ext Range 215.00 H, B-Natriuretic Peptide 211.9 H, Total Protein 7.5, Albumin 3.2, Globulin 4.3 H 02/24/24 21:30: Lactic Acid 1.6, Blood Type B POSITIVE, Antibody Screen NEGATIVE, Crossmatch See Detail 02/24/24 21:55: POC Glucose 163 H 02/25/24 01:52: S.aureus Protein A PCR POSITIVE H, MRSA (PCR) POSITIVE H 02/25/24 05:18: WBC 9.2, RBC 2.43 L, Hgb 7.5 L, Hct 22.7 L, MCV 93.4, MCH 30.9, MCHC 33.0, RDW Std Deviation 44.6 H, RDW Coeff of Estrada 13.0, Plt Count 228, MPV 9.9, Immature Gran % (Auto) 0.800, Neut % (Auto) 76.9 H, Lymph % (Auto) 10.4 L, Towns % (Auto) 9.6, Eos % (Auto) 2.0, Baso % (Auto) 0.3, Absolute Neuts (auto) 7.1, Absolute Lymphs (auto) 0.95, Nucleated RBC % 0, PT 38.1 H, INR 3.9, Sodium 133 L, Potassium 3.6, Chloride 105, Carbon Dioxide 21.0, Anion Gap 7, BUN 28 H, Creatinine 1.21, Estim Creat Clear Calc 59.64, Est GFR (MDRD) Af Amer 76, Est GFR (MDRD) Non-Af 63, BUN/Creatinine Ratio 23.1 H, Glucose 145 H, Hemoglobin A1c 5.8 H, Calcium 8.2 L, Total Bilirubin 0.70, AST 52 H, ALT 35, Alkaline Phosphatase 109, Total Protein 6.4, Albumin 2.6 L, Globulin 3.8, A lbumin/Globulin Ratio 0.7 L 02/25/24 11:33: POC Glucose 124 H Micro: Microbiology 02/25/24 01:52 Wound - Right Foot Gram Stain - Final Cardiology Labs/Tests 02/24/24 17:00: WBC 11.6 H, RBC 2.41 L, Hgb 7.3 L, Hct 22.8 L, MCV 94.6 H, MCH 30.3, MCHC 32.0, Plt Count 241, MPV 9.8, Immature Gran % (Auto) 0.400, Neut % (Auto) 87.5 H, Lymph % (Auto) 4.3 L, Towns % (Auto) 7.2, Eos % (Auto) 0.4, Baso % (Auto) 0.2, Absolute Neuts (auto) 10.2 H, Nucleated RBC % 0, PT 40.6 H, INR 4.3 H*, APTT 107.7 H*, Sodium 134 L, Potassium 4.6, Chloride 104, Carbon Dioxide 23.0, Anion Gap 7, BUN 33 H, Creatinine 1.58 H, Est GFR (MDRD) Af Amer 56 L, Est GFR (MDRD) Non-Af 46 L, BUN/Creatinine Ratio 20.9 H, Glucose 146 H, Lactic Acid 2.0, Calcium 8.6, Magnesium 1.6, Iron 11 L, TIBC 228 L, Iron Saturation 4.8 L, Ferritin 114, Total Bilirubin 0.70, Direct Bilirubin 0.27, B-Natriuretic Peptide 211.9 H 02/24/24 21:30: Lactic Acid 1.6 02/25/24 05:18: WBC 9.2, RBC 2.43 L, Hgb 7.5 L, Hct 22.7 L, MCV 93.4, MCH 30.9, MCHC 33.0, Plt Count 228, MPV 9.9, Immature Gran % (Auto) 0.800, Neut % (Auto) 76.9 H, Lymph % (Auto) 10.4 L, Towns % (Auto) 9.6, Eos % (Auto) 2.0, Baso % (Auto) 0.3, Absolute Neuts (auto) 7.1, Nucleated RBC % 0, PT 38.1 H, INR 3.9, S odium 133 L, Potassium 3.6, Chloride 105, Carbon Dioxide 21.0, Anion Gap 7, BUN 28 H, Creatinine 1.21, Est GFR (MDRD) Af Amer 76, Est GFR (MDRD) Non-Af 63, B UN/Creatinine Ratio 23.1 H, Glucose 145 H, Hemoglobin A1c 5.8 H, Calcium 8.2 L, Total Bilirubin 0.70 Rhythm: EKG: ECHO: Stress Test: Cardiac Cath: PCI: CT Surgery: Holter monitor: EPS: PPM: CXR: Chest CT Scan: Radiography Diagnostic Testing: Radiology Impression Foot X-Ray 02/24/24 16:50 IMPRESSION: Soft tissue gas formation about the fifth MTP joint. No definite acute bony abnormalities. Electronically Signed: Sage Burrell MD at 17:40 EDT ,
[2024-02-25] MEDS: Sodium Ferric Gluconat/Sucrose 250 MG in 0.9% Normal Saline (250mL Bag) 250 ML 135 MG IV (15:38)
[2024-02-25] MEDS: 0.9% Saline Lock 10 ML Syringe IV ×2 (15:40→20:47)
[2024-02-25] MEDS: Insulin Lispro 100 UNIT/ML INSULN.PEN SC ×4 (16:48→20:51)
[2024-02-25 17:25] LABS: Bedside Glucose 217 mg/dL (74-106)
--- NOTE | 2024-02-25 17:43 | CON.PCM.SX_ITS ---
Assessment & Plan Assessment/Plan (1) Atherosclerosis of [place] arteries of right leg with ulceration of other part of foot: PLAN: -moderate arterial insufficiency on last non-invasive studies -with new wound/infection will require optimized perfusion to aid in efforts to heal; may require TMA -plan angio Tuesday HPI Consult Data Date of Consult: 02/25/24 HPI Narrative HPI Narrative: RAPHAEL HADDAD, is a 73 M who presents with about 3 days of right foot swelling, erythema. No significant pain but has diminished sensation. Was found to have infected diabetic foot wound. Prior to this he did not have any ongoing wound issues that he was aware of, was last seen in podiatry office about 3 months ago. Has history of PAD with multiple interventions bilateral; most recent on right was 12/2022 which included right sfa/popliteal angioplasty/stent and right TP trunk/peroneal artery angioplasty. His peroneal artery is the only runoff to foot and reconstitutes the DP. The PT is occluded proximally in lower leg to with no real reconstitution. His most recent non invasive studies showed patent sfa/pop, TP trunk and peroneal with no significant stenosis identified. His HERNESTO was 0.79 which was a little drop from previously though waveforms remained biphasic. [facility] Medical History (Updated 02/25/24 @ 17:[address] Kendrick May MD) Atherosclerosis of [place] arteries of right leg with ulceration of other part of foot Non-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 Peripheral vascular occlusive disease Diabetic ulcer of toe of left foot associated with type 2 diabetes mellitus Ulcer of toe of left foot Atherosclerosis of [place] arteries of left leg with ulceration of other part of foot Wears glasses Alcohol use Insulin dependent diabetes mellitus Back pain Syncope Dietary restriction Cardiology follow-up encounter History of rheumatic fever ZOFIA (acute kidney injury) Recurrent right pleural effusion Osteomyelitis of toe of right foot Non-pressure chronic ulcer of other part of left foot with fat layer exposed Acute exacerbation of CHF (congestive heart failure) Anticoagulant long-term use Acute and chronic respiratory failure with hypercapnia Encephalopathy acute Acute hypercapnic respiratory failure Atherosclerosis of lower extremity with ulceration COPD (chronic obstructive pulmonary disease) Inability to walk Adult failure to thrive CHF (congestive heart failure) Smoker Congestive heart failure Sternal wound infection 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 MSSA (methicillin susceptible Staphylococcus aureus) infection History of non-ST elevation myocardial infarction (NSTEMI) (04/23/20) Non-healing surgical wound (05/01/20) nursing home current use of 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 Chronic combined systolic and diastolic CHF (congestive heart failure) Type 2 diabetes mellitus Atherosclerosis of coronary artery without angina pectoris Nicotine dependence Ischemic cardiomyopathy Secondary pulmonary arterial hypertension Essential (primary) hypertension Nonrheumatic aortic (valve) stenosis 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 Osteomyelitis Diabetic foot infection Bleeding disorder Ulcer of right foot with fat layer exposed COPD (chronic obstructive pulmonary disease) Hyperlipidemia DVT (deep venous thrombosis) GERD (gastroesophageal reflux disease) Home Medications ?Medication ?Instructions ?Recorded ?Last Taken ?Type atorvastatin 40 mg tablet 40 mg PO DAILY cholesterol 11/12/20 11/03/23 History ferrous sulfate 325 mg (65 mg 325 mg PO DAILY 10/29/22 11/02/23 History iron) tablet furosemide 40 mg tablet 40 mg PO DAILY #0 tabs 11/12/22 11/02/23 Rx cyclobenzaprine 10 mg tablet 10 mg PO TID PRN Muscle Pain 12/11/22 11/02/23 History insulin lispro 100 unit/mL 5 unit subcut ACHS 12/11/22 11/03/23 History subcutaneous pen (Humalog KwikPen (U-100) Insulin) pantoprazole 40 mg tablet,delayed 40 mg PO QDAY 10/04/23 11/02/23 History release aspirin 81 mg tablet,delayed 81 mg PO DAILY 10/28/23 11/02/23 History release (Adult Aspirin Regimen) doxepin 50 mg capsule 50 mg PO DAILY 10/28/23 11/02/23 History gabapentin 100 mg capsule 100 mg PO BID 10/28/23 11/02/23 History insulin glargine-yfgn 100 unit/mL 15 unit subcut QHS 10/28/23 11/03/23 History (3 mL) subcutaneous pen linagliptin 5 mg tablet (Tradjenta) 5 mg PO DAILY 10/28/23 11/03/23 History metformin 500 mg tablet 500 mg PO BID 10/28/23 11/03/23 History metoprolol succinate 25 mg 25 mg PO DAILY 10/28/23 11/03/23 History tablet,extended release 24 hr mirtazapine 7.5 mg tablet 7.5 mg PO QHS 10/28/23 11/03/23 History aeddklkr-yl-bafay 300 mcg-K 60 1 tab PO DAILY 10/28/23 11/02/23 History mcg-lycop 600 mcg-lutein 300 mcg tablet (Centrum Silver Men) cholecalciferol (vitamin D3) 25 25 mcg PO DAILY 10/31/23 11/02/23 History mcg (1,000 unit) capsule losartan 100 mg tablet 100 mg PO DAILY 10/31/23 11/03/23 History clopidogrel 75 mg tablet (Plavix) 75 mg PO DAILY #90 tabs 12/21/23 Unknown Rx warfarin 1 mg tablet 1.5 mg PO DAILY 02/24/24 Unknown History Allergy/AdvReac Type Severity Reaction Status Date / Time No Known Allergies Allergy Verified 02/24/24 15:39 Family History Mother Diabetes Heart disease Father Diabetes Surgical History History of amputation History of incision and drainage (09/22/20) History of angioplasty of peripheral vessel (01/02/10) History of lumbar laminectomy History of femoropopliteal bypass (2008) H/O coronary artery bypass surgery (05/01/20) History of mechanical aortic valve replacement History of left heart catheterization (04/23/20) Social History household members: significant other Smoking Status: Current every day smoker tobacco type: cigarettes Smoking packs per day: 1 Smoking cigarettes per day: 20.0 alcohol intake: never substance use type: does not use caffeine: No ROS Constitutional Constitutional: Denies chills, fever(s), frequent falls, lethargy or weakness Eyes Eyes: Denies blind spots, change in vision or loss of vision ENT HEENT: Denies bleeding gums, hoarseness or sore throat Cardiovascular Cardiovascular: Reports erythema on extremities, numbness in extremities and pedal edema; Denies abdominal pain, bluish discoloration of hand/feet, chest pain with activity, claudication, cold extremities, cyanosis, dyspnea on exertion, irregular heart rhythm, leg edema, leg ulcers or weakness in extremities Respiratory/Chest Respiratory/Chest: Denies cough, excessive phlegm production, shortness of breath at rest, shortness of breath with exertion or wheezing Gastrointestinal Gastrointestinal: Denies anorexia, change in stool character, constipation, diarrhea, melena or rectal bleeding Genitourinary Genitourinary: Denies dysuria or hematuria Musculoskeletal Musculoskeletal: Denies abnormal gait Integumentary Integumentary: Reports erythema and wounds; Denies non-healing lesions Neurologic Neurologic: Denies abnormal speech, focal weakness, headache(s), loss of vision, numbness, paresthesias or sensory deficit Hematologic/Lymphatic Hematologic/Lymphatic: Denies easy bleeding, easy bruising or lymphadenopathy Physical Exam Const alert, oriented x3, no apparent distress and healthy appearing General Appearance: cooperative; Negative for combative or lethargic Orientation / Consciousness: awake Exam Limitations: no limitations HEENT Head and Scalp: normocephalic and atraumatic Eyes EOMs intact bilaterally General Eye: normal appearance of both eyes Neck full ROM, no lymphadenopathy and thyroid normal General: trachea midline; Negative for lymphadenopathy or tenderness Thyroid: thyroid normal Resp normal respiratory effort and no use of accessory muscles Effort and Inspection: Negative for labored, stridor or audible wheezes Cardio regular rate and regular rhythm Peripheral Pulses: brachial pulses present, radial pulses present, femoral pulses present, popliteal pulses present and posterior tibial pulses present left; Negative for dorsalis pedis pulses present Back/Spine Cervical Spine: cervical ROM normal Extremity full ROM, normal capillary refill and no clubbing, cyanosis or edema Skin Skin Narrative: right foot dressing intact, dry, no bleed through Neuro oriented x3, CN's II-XII intact bilaterally, no focal motor deficits and no sensory deficits noted Psych thought process normal, cooperative, affect normal, speech normal and activity/motor behavior normal Lab / Micro Data 02/25/24 05:18 02/25/24 05:18 Labs: Laboratory Results - last 24 hr 02/24/24 17:00: ESR 23 H, PT 40.6 H, INR 4.3 H*, APTT 107.7 H*, Lactic Acid 2.0, Magnesium 1.6, Iron 11 L, TIBC 228 L, Iron Saturation 4.8 L, Ferritin 114, C- React Prot Ext Range 215.00 H, B-Natriuretic Peptide 211.9 H 02/24/24 21:30: Lactic Acid 1.6, Blood Type B POSITIVE, Antibody Screen NEGATIVE, Crossmatch See Detail 02/24/24 21:55: POC Glucose 163 H 02/25/24 01:52: S.aureus Protein A PCR POSITIVE H, MRSA (PCR) POSITIVE H 02/25/24 05:18: WBC 9.2, RBC 2.43 L, Hgb 7.5 L, Hct 22.7 L, MCV 93.4, MCH 30.9, MCHC 33.0, RDW Std Deviation 44.6 H, RDW Coeff of Estrada 13.0, Plt Count 228, MPV 9.9, Immature Gran % (Auto) 0.800, Neut % (Auto) 76.9 H, Lymph % (Auto) 10.4 L, [place] % (Auto) 9.6, Eos % (Auto) 2.0, Baso % (Auto) 0.3, Absolute Neuts (auto) 7.1, Absolute Lymphs (auto) 0.95, Nucleated RBC % 0, PT 38.1 H, INR 3.9, Sodium 133 L, Potassium 3.6, Chloride 105, Carbon Dioxide 21.0, Anion Gap 7, BUN 28 H, Creatinine 1.21, Estim Creat Clear Calc 59.64, Est GFR (MDRD) Af Amer 76, Est GFR (MDRD) Non-Af 63, BUN/Creatinine Ratio 23.1 H, Glucose 145 H, Hemoglobin A1c 5.8 H, Calcium 8.2 L, Total Bilirubin 0.70, AST 52 H, ALT 35, Alkaline Phosphatase 109, Total Protein 6.4, Albumin 2.6 L, Globulin 3.8, A lbumin/Globulin Ratio 0.7 L 02/25/24 11:33: POC Glucose 124 H 02/25/24 16:47: POC Glucose 217 H Micro: Microbiology 02/25/24 01:52 Wound - Right Foot Gram Stain - Final Charges/Coding Visit Charges Inpatient E&M: 31675 Init Hosp L3
[2024-02-25] MEDS: Albuterol 2.5 MG/3 ML VIAL.NEB. INHALATION (19:09)
[2024-02-25] MEDS: Mirtazapine 15 MG Tablet 7.5 MG PO (20:50)
[2024-02-25] MEDS: Atorvastatin Calcium 40 MG Tablet PO (20:51)
[2024-02-25] MEDS: Insulin Glargine-YFGN 100 UNIT/ML Pen 15 UNIT SC (20:51)
[2024-02-25 21:45] LABS: Bedside Glucose 223 mg/dL (74-106)
[2024-02-25] MEDS: oxyCODONE 5 MG Tablet PO (23:48)
[2024-02-25] MEDS: Acetaminophen 325 MG Tablet 650 MG PO (23:49)
[2024-02-26] VITALS (7 sets, daily range): BP systolic 97–122; BP diastolic 45–60; PULSE 85–101; RESP 16–20; TEMP 36.6; O2SAT 96–100; BMI 26.9
[2024-02-26] MEDS: Piperacil/Tazobactam 3.375 GM in 0.9% Normal Saline (50mL MB+) 50 ML IV ×3 (05:09→21:14)
[2024-02-26] MEDS: Budesonide Respules 0.5 MG/2 ML AMPUL.NEB. INHALATION ×2 (06:50→19:11)
[2024-02-26 07:36] LABS: Absolute Lymphocyte Count 0.83 X10^3/uL (0.83-4.51); Absolute Neutrophil Count 4.9 X10^3/uL (2.0-7.7); Basophil# 0.01 X10^3/uL; Basophil% 0.2 % (0-1); Eosinophil# 0.21 X10^3/uL; Eosinophils% 3.2 % (0-5); Hematocrit 22.8 % (40-54); Hemoglobin 7.4 g/dL (13.0-16.5); Lymphocyte # 0.83 X10^3/ul (0.83-4.51); Lymphocyte % 12.8 % (19-41); Mean Corp Hgb Conc 32.5 g/dL (32-36); Mean Corpuscular Hgb 30.3 pg (27.0-32.0); Mean Corpuscular Volume 93.4 fL (80-94); Mean Platelet Vol. 9.9 fl (6.2-12.0); Monocyte# 0.53 X10^3/uL; Monocyte% 8.2 % (0-10); NRBC Flagged by Analyzer 0 % (0-5); Neutrophil # 4.88 X10^3/uL (2.7-7.7); Neutrophil % 75.1 % (47-70); Platelet Count 242 K/mm3 (150-450); RBC Distribution Width CV 13.6 % (11.6-14.6); RBC Distribution Width SD 46.5 fl (35.1-43.9); Red Blood Count 2.44 M/mm3 (4.6-6.2); White Blood Count 6.5 K/mm3 (4.4-11.0)
[2024-02-26 08:13] LABS: Bedside Glucose 103 mg/dL (74-106)
[2024-02-26 08:36] LABS: Anion Gap 6 (5-15); BUN 16 mg/dL (7-18); BUN/Creat Ratio 16.9 RATIO (10-20); Calcium,Total 8.2 mg/dL (8.5-10.1); Chloride 110 mmol/L (98-107); Creatinine, Serum 0.94 mg/dL (0.70-1.30); EST Glomerular Filtration Rate 84 mL/min (>60); Est Glom Filt Rate - Afr Amer 101 mL/min (>60); Estimated Creatinine Clearance 76.77 ml/min; Glucose 118 mg/dL (74-106); Potassium 3.9 mmol/L (3.5-5.1); Sodium Level 138 mmol/L (136-145)
--- NOTE | 2024-02-26 08:42 | PCM.PN.HOSP ---
Subjective Subjective Doing well, no pain. No issues overnight Objective Data Objective Data Vital Signs: Vital Signs Temp Pulse Resp BP Pulse Ox O2 Del Method 98 F 96 18 113/56 L 96 Room Air 02/26/24 03:40 02/26/24 03:40 02/26/24 03:40 02/26/24 03:40 02/26/24 03:40 02/26/24 03:40 Oxygen Delivery Method Room Air Weight: 192 lb 14.472 oz Body Mass Index (BMI) 26.9 Intake & Output: Intake and Output for Last 24 Hours 02/25/24 02/26/24 02/27/24 03:59 03:59 03:59 Intake Total 691 / 691 1123.55 / 1123.55 240 / 240 Output Total 150 / 150 1550 / 1550 300 / 300 Balance 541 / 541 -426.45 / -426.45 -60 / -60 Lab / Micro Data 02/26/24 06:30 02/26/24 06:30 Labs: Laboratory Results - last 24 hr 02/25/24 05:18: Hemoglobin A1c 5.8 H 02/25/24 11:33: POC Glucose 124 H 02/25/24 16:47: POC Glucose 217 H 02/25/24 20:50: POC Glucose 223 H 02/26/24 06:30: WBC 6.5, RBC 2.44 L, Hgb 7.4 L, Hct 22.8 L, MCV 93.4, MCH 30.3, MCHC 32.5, RDW Std Deviation 46.5 H, RDW Coeff of Estrada 13.6, Plt Count 242, MPV 9.9, Immature Gran % (Auto) 0.500, Neut % (Auto) 75.1 H, Lymph % (Auto) 12.8 L, [place] % (Auto) 8.2, Eos % (Auto) 3.2, Baso % (Auto) 0.2, Absolute Neuts (auto) 4.9, Absolute Lymphs (auto) 0.83, Nucleated RBC % 0, Sodium 138, Potassium 3.9, Chloride 110 H, Carbon Dioxide 22.0, Anion Gap 6, BUN 16, Creatinine 0.94, Estim Creat Clear Calc 76.77, Est GFR (MDRD) Af Amer 101, Est GFR (MDRD) Non-Af 84, BUN/Creatinine Ratio 16.9, Glucose 118 H, Calcium 8.2 L, Vancomycin Trough 14.0 02/26/24 07:49: POC Glucose 103 Micro: Microbiology 02/25/24 01:52 Wound - Right Foot Gram Stain - Final Physical Exam Narrative General: Alert, Oriented x3, Cooperative, No apparent distress HEENT: Atraumatic, PERRLA, EOMI, Normocephalic Oral: Moist Mucosa Neck: Supple, No JVD Lungs: Diminished, Normal air movement, No rhonchi, No wheeze, No rales Cardiovascular: Regular rate, Regular Rhythm, Normal S1, Normal S2, No murmurs Abdomen: Soft, Non Tender, Non-Distended, No Hepato-splenomegaly Extremities: No edema, Capillary Refill Less than 3 Seconds Skin: Right lower extremity wrapped, dressing in place Musculoskeletal: No Tenderness to Palpation of Joints or Extremities Neurological: No focal neurological deficits, Motor Exam 5/5 strength throughout, Sensory exam intact to light touch and pain Psych/Mental Status: Normal Affect, Appropriate Assessment & Plan Assessment/Plan (1) Diabetic foot infection: (2) Supratherapeutic INR: PLAN: Plan 1. Right lower extremity diabetic foot infection with likely osteomyelitis ? Concern for gas gangrene ? Continue broad-spectrum antibiotics ? Appreciate podiatry's assistance, plan for operative intervention ? Plan for angio on the right lower extremity by vascular surgery on Tuesday ? Cultures are pending 2. CAD status post CABG/PAD status post femoral-popliteal bypass/essential HTN/HLD/aortic valve disease/chronic systolic CHF ? Has [place] mechanical valve ? INR is supratherapeutic, will hold Coumadin but not reverse in anticipation of surgery ? Echo 10/30/2022 with an EF of 40 to 45% and normal AV bioprosthetic valve ? Continue with aspirin and Plavix ? Blood pressure stable ? Can continue with his home blood pressure medications, will monitor and make adjustments as necessary 3. DM2 with neuropathy ? Continue to hold his home medications ? Sign scale insulin ? Accu-Cheks ACHS ? Will monitor make adjustments as necessary 4. Iron deficiency anemia ? Iron levels low ferritin, is normal ? Continue with his oral iron replacement 5. Anxiety/depression ? Stable ? Continue with his home medications 6. Chronic COPD ? Stable ? Continue with his home inhalers ? Not in exacerbation 7. GERD ? Stable ? Continue with PPI DVT: Supratherapeutic INR Charges/Coding Visit Charges Inpatient E&M: 07941 Subs Hosp L2
[2024-02-26] MEDS: Ferrous Sulfate 325 MG Tablet PO (08:50)
[2024-02-26] MEDS: Aspirin E.C. 81 MG Tablet PO (08:50)
[2024-02-26] MEDS: Juven (unflavored) Packet 1 PACKET PO ×2 (08:51→16:17)
[2024-02-26] MEDS: Pantoprazole Sodium 40 MG Tablet PO (08:51)
[2024-02-26] MEDS: Insulin Lispro 100 UNIT/ML INSULN.PEN SC ×7 (08:52→21:22)
[2024-02-26] MEDS: Gabapentin 100 MG Capsule PO ×2 (10:02→21:05)
[2024-02-26] MEDS: Vancomycin IV 1,000 MG/200 ML BAG 200 MG IV ×2 (10:02→21:14)
[2024-02-26] MEDS: DOXEPIN HCL 50 MG CAPSULE PO (10:02)
[2024-02-26] MEDS: Furosemide 40 MG Tablet PO (10:02)
[2024-02-26] MEDS: Clopidogrel Bisulfate 75 MG Tablet PO (10:02)
--- NOTE | 2024-02-26 10:23 | PCM.RX.CS ---
Consult Antibiotic Management Pharmacy has been consulted to manage selected antibiotic: Vancomycin Type of Intervention Type of Consult: Follow-up Suspected Infection Suspected Infection: Skin/Soft tissue Prior Doses of Antibiotics Prior Doses of Antibiotics Received/Current Regimen: Has been on 500mg iv q12h with 2000mg iv x 1 as loading dose on 02.24.24. Labs Labs: Sodium 138 mmol/L (136-145) 02/26/24 06:30 Potassium 3.9 mmol/L (3.5-5.1) 02/26/24 06:30 Chloride 110 mmol/L (98-107) H 02/26/24 06:30 Carbon Dioxide 22.0 mmol/L (21.0-32.0) 02/26/24 06:30 Anion Gap 6 (5-15) 02/26/24 06:30 BUN 16 mg/dL (7-18) 02/26/24 06:30 Creatinine 0.94 mg/dL (0.70-1.30) 02/26/24 06:30 Est GFR (MDRD) Af Amer 101 mL/min (>60) 02/26/24 06:30 Est GFR (MDRD) Non-Af 84 mL/min (>60) 02/26/24 06:30 BUN/Creatinine Ratio 16.9 RATIO (10-20) 02/26/24 06:30 Glucose 118 mg/dL (74-106) H 02/26/24 06:30 Vancomycin Trough 14.0 ug/mL (5.0-15.0) 02/26/24 06:30 Microbiology Microbiology: Microbiology 02/25/24 01:52 Wound - Right Foot Gram Stain - Final Dosing Weight Weight used for dosin.5 kg Estimated Creatinine Clearance Estimated Creatinine Clearance: 77ml/min Goal Trough Goal Trough: 15-20 mcg/mL Pharmacy Plan for Drug Dosing Pharmacy Plan for Drug Dosing: Trough today slightly low today at 14.0. Recommend a change in dose to 1000mg iv q12h. Trough level before 4th dose of new regimen per protocol. Pharmacy Service will continue to monitor and adjust dosing as required. Follow-Up Labs Follow-Up Labs: Trough: Vancomycin (02.27.24 @2130)
--- NOTE | 2024-02-26 10:44 | PN_ITS ---
Subjective Subjective Ms. Coronel is a 73-year-old diabetic male seen at bedside today for follow-up evaluation of gas gangrene/full-thickness wound to the right plantar foot. Patient is compliant with dressing changes and has been nonweightbearing to right extremity. He is currently getting IV antibiotics. No acute events overnight. He is aware of surgical intervention to the right foot Tuesday. Denies trauma. Denies constitutional symptoms. Other pedal place at this time. Objective Data Objective Data Vital Signs: Vital Signs Temp Pulse Resp BP Pulse Ox O2 Del Method 98 F 94 18 97/45 L 96 Room Air 02/26/24 03:40 02/26/24 10:01 02/26/24 03:40 02/26/24 10:01 02/26/24 03:40 02/26/24 03:40 Oxygen Delivery Method Room Air Weight: 87.5 kg Body Mass Index (BMI) 26.9 Intake & Output: Intake and Output for Last 24 Hours 02/24/24 02/25/24 02/26/24 23:59 23:59 23:59 Intake Total 640 / 640 887.67 / 1127.67 526.88 / 526.88 Output Total 150 / 150 1200 / 1550 650 / 650 Balance 490 / 490 -312.33 / -422.33 -123.12 / -123.12 Lab / Micro Data 02/26/24 06:30 02/26/24 06:30 Labs: Laboratory Results - last 24 hr 02/25/24 11:33: POC Glucose 124 H 02/25/24 16:47: POC Glucose 217 H 02/25/24 20:50: POC Glucose 223 H 02/26/24 06:30: WBC 6.5, RBC 2.44 L, Hgb 7.4 L, Hct 22.8 L, MCV 93.4, MCH 30.3, MCHC 32.5, RDW Std Deviation 46.5 H, RDW Coeff of Estrada 13.6, Plt Count 242, MPV 9.9, Immature Gran % (Auto) 0.500, Neut % (Auto) 75.1 H, Lymph % (Auto) 12.8 L, [place] % (Auto) 8.2, Eos % (Auto) 3.2, Baso % (Auto) 0.2, Absolute Neuts (auto) 4.9, Absolute Lymphs (auto) 0.83, Nucleated RBC % 0, Sodium 138, Potassium 3.9, Chloride 110 H, Carbon Dioxide 22.0, Anion Gap 6, BUN 16, Creatinine 0.94, Estim Creat Clear Calc 76.77, Est GFR (MDRD) Af Amer 101, Est GFR (MDRD) Non-Af 84, BUN/Creatinine Ratio 16.9, Glucose 118 H, Calcium 8.2 L, Vancomycin Trough 14.0 02/26/24 07:49: POC Glucose 103 Micro: Microbiology 02/25/24 01:52 Wound - Right Foot Gram Stain - Final Physical Exam Narrative Vascular: DP biphasic on Doppler, PT monophasic on Doppler right lower extremity. Skin temperature is warm to warm from proximal ankle to distal digit with focal increase appreciated to right foot. Nonpitting edema appreciated to the right lower extremity. Neurological: Light touch intact. Patient does not respond to painful stimuli. 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 Evidence of large eschar with malodor and positive probe to bone to the plantar aspect of the subfifth metatarsal head right foot. Ulceration measures 2.5 x 2.2 x 0.5 cm. Musculoskeletal: No pain to palpation to the full-thickness ulceration to the right foot. No pain with calf pressure. Assessment & Plan Assessment/Plan (1) Osteomyelitis of right foot: QUALIFIERS: Osteomyelitis type: subacute Qualified Code(s): M 86.271 - Subacute osteomyelitis, right ankle and foot PLAN: Patient was examined evaluated. All signs were discussed with the patient. All questions were answered to the patient satisfaction. Right lower extremity dressing change performed at bedside today with nurse present. Evidence of positive probe to bone. The ulceration was dressed with Betadine paint, Aquacel Ag, dry sterile dressing and single-layer compression wrap. Dressing can be changed every 2 days per nursing staff. Plan for surgery, will take the patient to the operating room Tuesday depending on availability. Plan will be transmetatarsal amputation with musculocutaneous flap and tendo Achilles lengthening to the right lower extremity. Plan to be n.p.o. midnight Tuesday. Cx: pending Vascular: Plan for angio Tuesday Medicine: On board, medical management, , IV antibiotics vancomycin/Zosyn Cardiology: On board Infectious disease: Consult pending Podiatry will continue to follow while patient is in house. Please reach out to Dr. Lyons with any questions or concerns. (2) Non-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: (3) Gas gangrene: (4) Cellulitis: QUALIFIERS: Site of cellulitis: extremity Site of cellulitis of extremity: lower extremity Laterality: right Qualified Code(s): L03.115 - Cellulitis of right lower limb
[2024-02-26 12:20] LABS: Bedside Glucose 194 mg/dL (74-106)
--- NOTE | 2024-02-26 12:46 | PCM.PN.SRG ---
Subjective Subjective No new issues, foot still with no pain, tolerated dressing change. Foot does look better. no F/C. Objective Data Objective Data A&O x 3, NAD RRR Resp non labored RLE dressing intact +femoral pulse bilateral, right popliteal pulse Vital Signs: Vital Signs Temp Pulse Resp BP Pulse Ox O2 Del Method 97.8 F 94 18 97/45 L 96 Room Air 02/26/24 11:11 02/26/24 11:11 02/26/24 11:11 02/26/24 11:11 02/26/24 11:11 02/26/24 11:11 Oxygen Delivery Method Room Air Weight: 192 lb 14.472 oz Body Mass Index (BMI) 26.9 Intake & Output: Intake and Output for Last 24 Hours 02/24/24 02/25/24 02/26/24 23:59 23:59 23:59 Intake Total 640 / 640 887.67 / 1127.67 776.88 / 776.88 Output Total 150 / 150 1200 / 1550 650 / 650 Balance 490 / 490 -312.33 / -422.33 126.88 / 126.88 Lab / Micro Data 02/26/24 06:30 02/26/24 06:30 Labs: Laboratory Results - last 24 hr 02/25/24 16:47: POC Glucose 217 H 02/25/24 20:50: POC Glucose 223 H 02/26/24 06:30: WBC 6.5, RBC 2.44 L, Hgb 7.4 L, Hct 22.8 L, MCV 93.4, MCH 30.3, MCHC 32.5, RDW Std Deviation 46.5 H, RDW Coeff of Estrada 13.6, Plt Count 242, MPV 9.9, Immature Gran % (Auto) 0.500, Neut % (Auto) 75.1 H, Lymph % (Auto) 12.8 L, [place] % (Auto) 8.2, Eos % (Auto) 3.2, Baso % (Auto) 0.2, Absolute Neuts (auto) 4.9, Absolute Lymphs (auto) 0.83, Nucleated RBC % 0, Sodium 138, Potassium 3.9, Chloride 110 H, Carbon Dioxide 22.0, Anion Gap 6, BUN 16, Creatinine 0.94, Estim Creat Clear Calc 76.77, Est GFR (MDRD) Af Amer 101, Est GFR (MDRD) Non-Af 84, BUN/Creatinine Ratio 16.9, Glucose 118 H, Calcium 8.2 L, Vancomycin Trough 14.0 02/26/24 07:49: POC Glucose 103 02/26/24 11:35: POC Glucose 194 H Micro: Microbiology 02/25/24 12:56 Wound - Right Foot Wound Culture - Preliminary Mixed Gram Pos & Gram Neg Org 02/25/24 01:52 Wound - Right Foot Gram Stain - Final 02/25/24 01:52 Wound - Right Foot Wound Culture - Preliminary Mixed Gram Pos & Gram Neg Org Assessment & Plan Assessment/Plan (1) Atherosclerosis of [place] arteries of right leg with ulceration of other part of foot: PLAN: -agreeable for angio, planning for tomorrow -npo at midnight -questions answered Charges/Coding Visit Charges Inpatient E&M: 50079 Subs Hosp L1
[2024-02-26 16:42] LABS: Bedside Glucose 209 mg/dL (74-106)
[2024-02-26] MEDS: Atorvastatin Calcium 40 MG Tablet PO (21:05)
[2024-02-26] MEDS: Mirtazapine 15 MG Tablet 7.5 MG PO (21:05)
[2024-02-26 22:47] LABS: Bedside Glucose 239 mg/dL (74-106)
[2024-02-27] VITALS (7 sets, daily range): BP systolic 129–146; BP diastolic 63–72; PULSE 84–94; RESP 16–26; TEMP 36.3–37.3; O2SAT 97–99; BMI 26.7
[2024-02-27] MEDS: Piperacil/Tazobactam 3.375 GM in 0.9% Normal Saline (50mL MB+) 50 ML IV ×3 (05:15→22:25)
[2024-02-27] MEDS: Aspirin E.C. 81 MG Tablet PO (05:15)
[2024-02-27] MEDS: Clopidogrel Bisulfate 75 MG Tablet PO (05:16)
[2024-02-27] MEDS: Metoprolol(XL)Succ 25 MG Tablet PO (05:39)
[2024-02-27 05:40] LABS: Absolute Lymphocyte Count 1.13 X10^3/uL (0.83-4.51); Absolute Neutrophil Count 4.9 X10^3/uL (2.0-7.7); Basophil# 0.04 X10^3/uL; Basophil% 0.6 % (0-1); Eosinophil# 0.32 X10^3/uL; Eosinophils% 4.5 % (0-5); Hematocrit 24.3 % (40-54); Hemoglobin 7.7 g/dL (13.0-16.5); Lymphocyte # 1.13 X10^3/ul (0.83-4.51); Lymphocyte % 15.9 % (19-41); Mean Corp Hgb Conc 31.7 g/dL (32-36); Mean Corpuscular Hgb 30.1 pg (27.0-32.0); Mean Corpuscular Volume 94.9 fL (80-94); Mean Platelet Vol. 9.8 fl (6.2-12.0); Monocyte# 0.66 X10^3/uL; Monocyte% 9.3 % (0-10); NRBC Flagged by Analyzer 0 % (0-5); Neutrophil # 4.91 X10^3/uL (2.7-7.7); Neutrophil % 69.1 % (47-70); Platelet Count 284 K/mm3 (150-450); RBC Distribution Width CV 13.6 % (11.6-14.6); Red Blood Count 2.56 M/mm3 (4.6-6.2); White Blood Count 7.1 K/mm3 (4.4-11.0)
[2024-02-27] MEDS: Losartan Potassium 100 MG Tablet PO (05:40)
[2024-02-27 05:51] LABS: International Normalized Ratio 2.8; Prothrombin Time (Protime)PT. 29.6 SECONDS (11.7-14.9)
--- NOTE | 2024-02-27 05:55 | EKG12_ITS ---
Test Reason : AM EKG Blood Pressure : / mmHG Vent. Rate : 092 BPM Atrial Rate : 000 BPM P-R Int : 000 ms QRS Dur : 090 ms QT Int : 346 ms P-R-T Axes : 000 019 065 degrees QTc Int : 427 ms Accelerated Junctional rhythm Low voltage QRS Cannot rule out Anterior infarct , age undetermined Abnormal ECG When compared with ECG of 24-FEB-2024 17:33, MANUAL COMPARISON REQUIRED, DATA IS UNCONFIRMED Confirmed by EVARISTO CHAPA, JORDAN ([id number]), city editor RICK GARCIA ([id number]) on 02/27/2024 2:15:17 PM Referred By: Confirmed By:JORDAN LOERA MD
[2024-02-27 06:03] LABS: Anion Gap 5 (5-15); BUN 18 mg/dL (7-18); BUN/Creat Ratio 21.2 RATIO (10-20); Calcium,Total 8.5 mg/dL (8.5-10.1); Chloride 109 mmol/L (98-107); Creatinine, Serum 0.85 mg/dL (0.70-1.30); EST Glomerular Filtration Rate 94 mL/min (>60); Est Glom Filt Rate - Afr Amer 114 mL/min (>60); Glucose 155 mg/dL (74-106); Potassium 3.9 mmol/L (3.5-5.1); Sodium Level 137 mmol/L (136-145)
[2024-02-27 07:01] LABS: Bedside Glucose 129 mg/dL (74-106)
[2024-02-27] MEDS: Budesonide Respules 0.5 MG/2 ML AMPUL.NEB. INHALATION ×2 (07:13→19:55)
--- NOTE | 2024-02-27 08:55 | CASEMGMT ---
Insurance review for hospitals In-network with [facility] insurance if transfer is recommended is as follows: [facility], [place], [facility], [place], [facility], [facility], [facility], [place], [facility]), and . Lizabeth Church, Discharge Planning Asst.
[2024-02-27] MEDS: 0.9% Saline Lock 10 ML Syringe IV ×2 (09:45→22:22)
[2024-02-27] MEDS: Juven (unflavored) Packet 1 PACKET PO ×2 (09:45→17:58)
[2024-02-27] MEDS: DOXEPIN HCL 50 MG CAPSULE PO (09:46)
[2024-02-27] MEDS: Furosemide 40 MG Tablet PO (09:46)
[2024-02-27] MEDS: Pantoprazole Sodium 40 MG Tablet PO (09:46)
[2024-02-27] MEDS: Ferrous Sulfate 325 MG Tablet PO (09:47)
[2024-02-27] MEDS: Senna/Docusate Sodium 1 Tablet 2 TABLET PO (09:50)
[2024-02-27] MEDS: Vancomycin IV 1,000 MG/200 ML BAG 200 MG IV (09:51)
[2024-02-27] MEDS: Gabapentin 100 MG Capsule PO ×2 (09:51→22:02)
--- NOTE | 2024-02-27 10:12 | PN.HOSP_ITS ---
Subjective Subjective Doing well, no issues overnight. Could not do the angiogram today because his INR is a little too high Objective Data Objective Data Vital Signs: Vital Signs Temp Pulse Resp BP Pulse Ox O2 Del Method 98.0 F 91 18 134/63 H 98 Room Air 02/27/24 05:39 02/27/24 07:13 02/27/24 07:13 02/27/24 05:39 02/27/24 05:39 02/27/24 05:39 Oxygen Delivery Method Room Air Weight: 191 lb 9.307 oz Body Mass Index (BMI) 26.7 Intake & Output: Intake and Output for Last 24 Hours 02/26/24 02/27/24 02/28/24 03:59 03:59 03:59 Intake Total 1123.55 / 1123.55 1090 / 1090 0 / 0 Output Total 1550 / 1550 1025 / 1025 500 / 500 Balance -426.45 / -426.45 65 / 65 -500 / -500 Lab / Micro Data 02/27/24 05:15 02/27/24 05:15 Labs: Laboratory Results - last 24 hr 02/26/24 11:35: POC Glucose 194 H 02/26/24 16:16: POC Glucose 209 H 02/26/24 21:20: POC Glucose 239 H 02/27/24 05:15: WBC 7.1, RBC 2.56 L, Hgb 7.7 L, Hct 24.3 L, MCV 94.9 H, MCH 30.1, MCHC 31.7 L, RDW Std Deviation 47.0 H, RDW Coeff of Estrada 13.6, Plt Count 284, MPV 9.8, Immature Gran % (Auto) 0.600, Neut % (Auto) 69.1, Lymph % (Auto) 15.9 L, [place] % (Auto) 9.3, Eos % (Auto) 4.5, Baso % (Auto) 0.6, Absolute Neuts (auto) 4.9, Absolute Lymphs (auto) 1.13, Nucleated RBC % 0, PT 29.6 H, INR 2.8, Sodium 137, Potassium 3.9, Chloride 109 H, Carbon Dioxide 23.0, Anion Gap 5, BUN 18, Creatinine 0.85, Estim Creat Clear Calc 84.90, Est GFR (MDRD) Af Amer 114, Est GFR (MDRD) Non-Af 94, BUN/Creatinine Ratio 21.2 H, Glucose 155 H, Calcium 8.5 02/27/24 06:42: POC Glucose 129 H Micro: Microbiology 02/25/24 12:56 Wound - Right Foot Gram Stain - Final 02/25/24 12:56 Wound - Right Foot Wound Culture - Preliminary Gram negative gala Gram negative gala#2 GNR lactose social work assistant Staphylococcus aureus 02/25/24 01:52 Wound - Right Foot Gram Stain - Final 02/25/24 01:52 Wound - Right Foot Wound Culture - Preliminary Staphylococcus aureus Coag Negative Staph Coag Negative Staph#2 Gram negative gala GNR lactose social work assistant Physical Exam Narrative General: Alert, Oriented x3, Cooperative, No apparent distress HEENT: Atraumatic, PERRLA, EOMI, Normocephalic Oral: Moist Mucosa Neck: Supple, No JVD Lungs: Diminished, Normal air movement, No rhonchi, No wheeze, No rales Cardiovascular: Regular rate, Regular Rhythm, Normal S1, Normal S2, No murmurs Abdomen: Soft, Non Tender, Non-Distended, No Hepato-splenomegaly Extremities: No edema, Capillary Refill Less than 3 Seconds Skin: Right lower extremity wrapped, dressing in place Musculoskeletal: No Tenderness to Palpation of Joints or Extremities Neurological: No focal neurological deficits, Motor Exam 5/5 strength throughout, Sensory exam intact to light touch and pain Psych/Mental Status: Normal Affect, Appropriate Assessment & Plan Assessment/Plan (1) Diabetic foot infection: (2) Supratherapeutic INR: PLAN: Plan 1. Right lower extremity diabetic foot infection with likely osteomyelitis ? Concern for gas gangrene ? Continue broad-spectrum antibiotics ? Appreciate podiatry's assistance, plan for operative intervention ? Plan was for angio today with vascular surgery however INR was 2.8 and needs to be at 2.5 or below will reschedule for tomorrow afternoon ? Cultures are pending 2. CAD status post CABG/PAD status post femoral-popliteal bypass/essential HTN/HLD/aortic valve disease/chronic systolic CHF ? Has [place] mechanical valve ? INR was supratherapeutic, will hold Coumadin but not reverse in anticipation of surgery ? Echo 10/30/2022 with an EF of 40 to 45% and normal AV bioprosthetic valve ? Continue with aspirin and Plavix ? Blood pressure stable ? Can continue with his home blood pressure medications, will monitor and make adjustments as necessary 3. DM2 with neuropathy ? Continue to hold his home medications ? Sign scale insulin ? Accu-Cheks ACHS ? Will monitor make adjustments as necessary 4. Iron deficiency anemia ? Iron levels low ferritin, is normal ? Continue with his oral iron replacement 5. Anxiety/depression ? Stable ? Continue with his home medications 6. Chronic COPD ? Stable ? Continue with his home inhalers ? Not in exacerbation 7. GERD ? Stable ? Continue with PPI DVT: Therapeutic INR Charges/Coding Visit Charges Inpatient E&M: 18994 Subs Hosp L2
[2024-02-27] MEDS: Insulin Lispro 100 UNIT/ML INSULN.PEN SC ×6 (11:08→22:03)
[2024-02-27 11:27] LABS: Bedside Glucose 198 mg/dL (74-106)
--- NOTE | 2024-02-27 13:22 | CON.PCM.ID_ITS ---
Assessment & Plan Assessment/Plan (1) Osteomyelitis of right foot: QUALIFIERS: Osteomyelitis type: subacute Qualified Code(s): M 86.271 - Subacute osteomyelitis, right ankle and foot PLAN: Wound cultures pending. On vanc/zosyn, will add clinda for gas formation. Will follow, thank you (2) Gas gangrene: (3) Diabetes mellitus: (4) PVD (peripheral vascular disease): HPI Consult Data Date of Consult: 02/27/24 HPI Narrative Reason for Consultation: gas gangrene HPI Narrative: RAPHAEL HADDAD, is a 73 M with prior AVR with [facility] valve, COPD, PAD, recurrent osteo, DM neuropathy, presented 02/23 with sudden onset swelling and redness to R foot. No known inciting event, no pain, no drainage, no fever or chills. Admitted on vanc/zosyn, seen by podiatry, OR planned for tomorrow. Full ROS performed and neg except as noted above. [facility] Medical History Atherosclerosis of [place] arteries of right leg with ulceration of other part of foot Non-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 Peripheral vascular occlusive disease Diabetic ulcer of toe of left foot associated with type 2 diabetes mellitus Ulcer of toe of left foot Atherosclerosis of [place] arteries of left leg with ulceration of other part of foot Wears glasses Alcohol use Insulin dependent diabetes mellitus Back pain Syncope Dietary restriction Cardiology follow-up encounter History of rheumatic fever ZOFIA (acute kidney injury) Recurrent right pleural effusion Osteomyelitis of toe of right foot Non-pressure chronic ulcer of other part of left foot with fat layer exposed Acute exacerbation of CHF (congestive heart failure) Anticoagulant long-term use Acute and chronic respiratory failure with hypercapnia Encephalopathy acute Acute hypercapnic respiratory failure Atherosclerosis of lower extremity with ulceration COPD (chronic obstructive pulmonary disease) Inability to walk Adult failure to thrive CHF (congestive heart failure) Smoker Congestive heart failure Sternal wound infection 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 MSSA (methicillin susceptible Staphylococcus aureus) infection History of non-ST elevation myocardial infarction (NSTEMI) (04/23/20) Non-healing surgical wound (05/01/20) technician terminal and repeater current use of 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 Chronic combined systolic and diastolic CHF (congestive heart failure) Type 2 diabetes mellitus Atherosclerosis of coronary artery without angina pectoris Nicotine dependence Ischemic cardiomyopathy Secondary pulmonary arterial hypertension Essential (primary) hypertension Nonrheumatic aortic (valve) stenosis 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 Osteomyelitis Diabetic foot infection Bleeding disorder Ulcer of right foot with fat layer exposed COPD (chronic obstructive pulmonary disease) Hyperlipidemia DVT (deep venous thrombosis) GERD (gastroesophageal reflux disease) Home Medications ?Medication ?Instructions ?Recorded ?Last Taken ?Type atorvastatin 40 mg tablet 40 mg PO DAILY cholesterol 11/12/20 11/03/23 History ferrous sulfate 325 mg (65 mg 325 mg PO DAILY 10/29/22 11/02/23 History iron) tablet furosemide 40 mg tablet 40 mg PO DAILY #0 tabs 11/12/22 11/02/23 Rx cyclobenzaprine 10 mg tablet 10 mg PO TID PRN Muscle Pain 12/11/22 11/02/23 History insulin lispro 100 unit/mL 5 unit subcut ACHS 12/11/22 11/03/23 History subcutaneous pen (Humalog KwikPen (U-100) Insulin) pantoprazole 40 mg tablet,delayed 40 mg PO QDAY 10/04/23 11/02/23 History release aspirin 81 mg tablet,delayed 81 mg PO DAILY 10/28/23 11/02/23 History release (Adult Aspirin Regimen) doxepin 50 mg capsule 50 mg PO DAILY 10/28/23 11/02/23 History gabapentin 100 mg capsule 100 mg PO BID 10/28/23 11/02/23 History insulin glargine-yfgn 100 unit/mL 15 unit subcut QHS 10/28/23 11/03/23 History (3 mL) subcutaneous pen linagliptin 5 mg tablet (Tradjenta) 5 mg PO DAILY 10/28/23 11/03/23 History metformin 500 mg tablet 500 mg PO BID 10/28/23 11/03/23 History metoprolol succinate 25 mg 25 mg PO DAILY 10/28/23 11/03/23 History tablet,extended release 24 hr mirtazapine 7.5 mg tablet 7.5 mg PO QHS 10/28/23 11/03/23 History uzulepoa-ws-xbqnk 300 mcg-K 60 1 tab PO DAILY 10/28/23 11/02/23 History mcg-lycop 600 mcg-lutein 300 mcg tablet (Centrum Silver Men) cholecalciferol (vitamin D3) 25 25 mcg PO DAILY 10/31/23 11/02/23 History mcg (1,000 unit) capsule losartan 100 mg tablet 100 mg PO DAILY 10/31/23 11/03/23 History clopidogrel 75 mg tablet (Plavix) 75 mg PO DAILY #90 tabs 12/21/23 Unknown Rx warfarin 1 mg tablet 1.5 mg PO DAILY 02/24/24 Unknown History Allergy/AdvReac Type Severity Reaction Status Date / Time No Known Allergies Allergy Verified 02/24/24 15:39 Family History Mother Diabetes Heart disease Father Diabetes Surgical History History of amputation History of incision and drainage (09/22/20) History of angioplasty of peripheral vessel (01/02/10) History of lumbar laminectomy History of femoropopliteal bypass (2008) H/O coronary artery bypass surgery (05/01/20) History of mechanical aortic valve replacement History of left heart catheterization (04/23/20) Social History household members: significant other Smoking Status: Current every day smoker tobacco type: cigarettes Smoking packs per day: 1 Smoking cigarettes per day: 20.0 alcohol intake: never substance use type: does not use caffeine: No Physical Exam Const alert, oriented x3 and no apparent distress General Appearance: cooperative HEENT normocephalic and head/scalp atraumatic Eyes PERRL and EOMs intact bilaterally Neck supple and No nodes Resp normal air movement and clear to auscultation bilaterally Cardio regular rate and regular rhythm GI soft to palpation, non-tender and non-distended Extremity General Extremity: edema Skin Skin Narrative: R foot wrapped Neuro CN's II-XII intact bilaterally Lab / Micro Data Attestation: I reviewed the patient's lab results. 02/27/24 05:15 02/27/24 05:15 Labs: Laboratory Results - last 24 hr 02/26/24 16:16: POC Glucose 209 H 02/26/24 21:20: POC Glucose 239 H 02/27/24 05:15: WBC 7.1, RBC 2.56 L, Hgb 7.7 L, Hct 24.3 L, MCV 94.9 H, MCH 30.1, MCHC 31.7 L, RDW Std Deviation 47.0 H, RDW Coeff of Estrada 13.6, Plt Count 284, MPV 9.8, Immature Gran % (Auto) 0.600, Neut % (Auto) 69.1, Lymph % (Auto) 15.9 L, [place] % (Auto) 9.3, Eos % (Auto) 4.5, Baso % (Auto) 0.6, Absolute Neuts (auto) 4.9, Absolute Lymphs (auto) 1.13, Nucleated RBC % 0, PT 29.6 H, INR 2.8, Sodium 137, Potassium 3.9, Chloride 109 H, Carbon Dioxide 23.0, Anion Gap 5, BUN 18, Creatinine 0.85, Estim Creat Clear Calc 84.90, Est GFR (MDRD) Af Amer 114, Est GFR (MDRD) Non-Af 94, BUN/Creatinine Ratio 21.2 H, Glucose 155 H, Calcium 8.5 02/27/24 06:42: POC Glucose 129 H 02/27/24 11:06: POC Glucose 198 H Micro: Microbiology 02/24/24 17:00 Blood Culture (Wb) - Anticubital Right Blood Culture - Preliminary No growth in 48 hours. 02/25/24 12:56 Wound - Right Foot Gram Stain - Final 02/25/24 12:56 Wound - Right Foot Wound Culture - Preliminary Gram negative gala Gram negative gala#2 GNR lactose product development specialist Staphylococcus aureus 02/25/24 01:52 Wound - Right Foot Gram Stain - Final 02/25/24 01:52 Wound - Right Foot Wound Culture - Preliminary Staphylococcus aureus Coag Negative Staph Coag Negative Staph#2 Gram negative gala GNR lactose product development specialist
[2024-02-27] MEDS: Clindamycin 600 MG/50 ML BAG 100 MG IV ×2 (14:18→21:55)
[2024-02-27 17:03] LABS: Bedside Glucose 232 mg/dL (74-106)
[2024-02-27] MEDS: Insulin Glargine-YFGN 100 UNIT/ML Pen 15 UNIT SC (22:01)
[2024-02-27] MEDS: Atorvastatin Calcium 40 MG Tablet PO (22:04)
[2024-02-27] MEDS: Mirtazapine 15 MG Tablet 7.5 MG PO (22:04)
[2024-02-27 22:10] LABS: Vancomycin, Trough Level 22.1 ug/mL (5.0-15.0)
--- NOTE | 2024-02-27 22:31 | PCM.RX.CS ---
Consult Antibiotic Management Pharmacy has been consulted to manage selected antibiotic: Vancomycin Type of Intervention Type of Consult: Follow-up Suspected Infection Suspected Infection: Skin/Soft tissue Prior Doses of Antibiotics Prior Doses of Antibiotics Received/Current Regimen: Vancomycin 1000 mg IV given last 02/27/24 @ 0951 Labs Labs: Sodium 137 mmol/L (136-145) 02/27/24 05:15 Potassium 3.9 mmol/L (3.5-5.1) 02/27/24 05:15 Chloride 109 mmol/L (98-107) H 02/27/24 05:15 Carbon Dioxide 23.0 mmol/L (21.0-32.0) 02/27/24 05:15 Anion Gap 5 (5-15) 02/27/24 05:15 BUN 18 mg/dL (7-18) 02/27/24 05:15 Creatinine 0.85 mg/dL (0.70-1.30) 02/27/24 05:15 Est GFR (MDRD) Af Amer 114 mL/min (>60) 02/27/24 05:15 Est GFR (MDRD) Non-Af 94 mL/min (>60) 02/27/24 05:15 BUN/Creatinine Ratio 21.2 RATIO (10-20) H 02/27/24 05:15 Glucose 155 mg/dL (74-106) H 02/27/24 05:15 Vancomycin Trough 22.1 ug/mL (5.0-15.0) H 02/27/24 21:26 Microbiology Microbiology: Microbiology 02/24/24 17:00 Blood Culture (Wb) - Anticubital Right Blood Culture - Preliminary No growth in 48 hours. 02/25/24 12:56 Wound - Right Foot Gram Stain - Final 02/25/24 12:56 Wound - Right Foot Wound Culture - Preliminary Gram negative gala Gram negative gala#2 GNR lactose metal casket assembler Staphylococcus aureus 02/25/24 01:52 Wound - Right Foot Gram Stain - Final 02/25/24 01:52 Wound - Right Foot Wound Culture - Preliminary Staphylococcus aureus Coag Negative Staph Coag Negative Staph#2 Gram negative gala GNR lactose metal casket assembler Dosing Weight Weight used for dosin kg Estimated Creatinine Clearance Estimated Creatinine Clearance: ~ 85 Goal Trough Goal Trough: 15-20 mcg/mL Pharmacy Plan for Drug Dosing Pharmacy Plan for Drug Dosing: Vancomycin trough = 22.1 drawn 11.5 hours after last dose started, hold tonight's dose and get a random in the AM, likely reduce dose thereafter. Pharmacy Service will continue to monitor and adjust dosing as required. Follow-Up Labs Follow-Up Labs: Trough: Vancomycin Date/Time Labs Ordered Labs to be done on [date and time ordered]: 02/28/24 @ 0600
[2024-02-27 22:56] LABS: Bedside Glucose 179 mg/dL (74-106)
[2024-02-28] VITALS (15 sets, daily range): BP systolic 111–132; BP diastolic 56–68; PULSE 74–93; RESP 16–26; TEMP 36.1–36.7; O2SAT 97–100; BMI 26.7; BMI 27.2
[2024-02-28] MEDS: Acetaminophen 325 MG Tablet 650 MG PO (01:55)
[2024-02-28] MEDS: Clindamycin 600 MG/50 ML BAG 100 MG IV ×3 (05:41→20:43)
[2024-02-28] MEDS: 0.9% Saline Lock 10 ML Syringe IV ×2 (05:41→08:28)
[2024-02-28 06:23] LABS: Absolute Lymphocyte Count 1.16 X10^3/uL (0.83-4.51); Absolute Neutrophil Count 4.2 X10^3/uL (2.0-7.7); Basophil# 0.03 X10^3/uL; Basophil% 0.5 % (0-1); Eosinophil# 0.35 X10^3/uL; Eosinophils% 5.3 % (0-5); Hemoglobin 7.3 g/dL (13.0-16.5); Lymphocyte # 1.16 X10^3/ul (0.83-4.51); Lymphocyte % 17.4 % (19-41); Mean Corp Hgb Conc 31.7 g/dL (32-36); Mean Corpuscular Hgb 29.9 pg (27.0-32.0); Mean Corpuscular Volume 94.3 fL (80-94); Mean Platelet Vol. 9.6 fl (6.2-12.0); Monocyte# 0.81 X10^3/uL; Monocyte% 12.2 % (0-10); NRBC Flagged by Analyzer 0 % (0-5); Neutrophil # 4.24 X10^3/uL (2.7-7.7); Neutrophil % 63.7 % (47-70); Platelet Count 320 K/mm3 (150-450); RBC Distribution Width CV 13.3 % (11.6-14.6); RBC Distribution Width SD 45.8 fl (35.1-43.9); Red Blood Count 2.44 M/mm3 (4.6-6.2); White Blood Count 6.7 K/mm3 (4.4-11.0)
[2024-02-28] MEDS: Piperacil/Tazobactam 3.375 GM in 0.9% Normal Saline (50mL MB+) 50 ML IV ×3 (06:24→21:35)
[2024-02-28] MEDS: Losartan Potassium 100 MG Tablet PO (06:27)
[2024-02-28] MEDS: Metoprolol(XL)Succ 25 MG Tablet PO (06:28)
[2024-02-28] MEDS: Aspirin E.C. 81 MG Tablet PO (06:28)
[2024-02-28] MEDS: Clopidogrel Bisulfate 75 MG Tablet PO (06:29)
[2024-02-28 06:40] LABS: International Normalized Ratio 2.6; Prothrombin Time (Protime)PT. 27.2 SECONDS (11.7-14.9)
[2024-02-28 06:58] LABS: Bedside Glucose 117 mg/dL (74-106)
[2024-02-28 07:00] LABS: Anion Gap 5 (5-15); BUN 21 mg/dL (7-18); BUN/Creat Ratio 23.8 RATIO (10-20); Calcium,Total 8.8 mg/dL (8.5-10.1); Chloride 109 mmol/L (98-107); Creatinine, Serum 0.88 mg/dL (0.70-1.30); EST Glomerular Filtration Rate 90 mL/min (>60); Est Glom Filt Rate - Afr Amer 109 mL/min (>60); Glucose 116 mg/dL (74-106); Potassium 3.8 mmol/L (3.5-5.1); Sodium Level 138 mmol/L (136-145)
[2024-02-28 07:04] LABS: Vancomycin, Random Level 16.2 ug/mL (0.0-15.0)
[2024-02-28] MEDS: Budesonide Respules 0.5 MG/2 ML AMPUL.NEB. INHALATION ×2 (07:12→19:54)
--- NOTE | 2024-02-28 07:24 | PCM.RX.CS ---
Consult Antibiotic Management Pharmacy has been consulted to manage selected antibiotic: Vancomycin Type of Intervention Type of Consult: Follow-up Suspected Infection Suspected Infection: Other (diabetic foot infection) Labs Labs: Sodium 138 mmol/L (136-145) 02/28/24 05:50 Potassium 3.8 mmol/L (3.5-5.1) 02/28/24 05:50 Chloride 109 mmol/L (98-107) H 02/28/24 05:50 Carbon Dioxide 24.0 mmol/L (21.0-32.0) 02/28/24 05:50 Anion Gap 5 (5-15) 02/28/24 05:50 BUN 21 mg/dL (7-18) H 02/28/24 05:50 Creatinine 0.88 mg/dL (0.70-1.30) 02/28/24 05:50 Est GFR (MDRD) Af Amer 109 mL/min (>60) 02/28/24 05:50 Est GFR (MDRD) Non-Af 90 mL/min (>60) 02/28/24 05:50 BUN/Creatinine Ratio 23.8 RATIO (10-20) H 02/28/24 05:50 Glucose 116 mg/dL (74-106) H 02/28/24 05:50 Vancomycin Trough 22.1 ug/mL (5.0-15.0) H 02/27/24 21:26 Random Vancomycin 16.2 ug/mL (0.0-15.0) H 02/28/24 05:50 Microbiology Microbiology: Microbiology 02/24/24 17:00 Blood Culture (Wb) - Anticubital Right Blood Culture - Preliminary No growth in 48 hours. 02/25/24 12:56 Wound - Right Foot Gram Stain - Final 02/25/24 12:56 Wound - Right Foot Wound Culture - Preliminary Gram negative gala Gram negative gala#2 GNR lactose director global strategic publisher sales Staphylococcus aureus 02/25/24 01:52 Wound - Right Foot Gram Stain - Final 02/25/24 01:52 Wound - Right Foot Wound Culture - Preliminary Staphylococcus aureus Coag Negative Staph Coag Negative Staph#2 Gram negative gala GNR lactose director global strategic publisher sales Goal Trough Goal Trough: 15-20 mcg/mL Pharmacy Plan for Drug Dosing Pharmacy Plan for Drug Dosing: VANCOMYCIN LEVEL RECEIVED Current Vancomycin Dose: Current dose is on hold due to previously elevated trough of 22.1 Number of Doses Received: last dose received was 1000mg on 02/27/24 at 0951 Vancomycin Level: 20 hour random level resulted at 16.2 Hours Since Last Dose: 20 hours since last 1000mg dose Renal Function: SrCr 0.88 Renal Function Trend: currently stable Lab/Micro: Vancomycin Plan/Comments: recommend re-starting patient on Vancomycin at a dose of 750mg q12h (total daily dose of 1500mg). checking a trough prior to the 3rd dose to ensure dose/frequency is correct Pending Level: 02/29/24 at 0830 Pharmacy Service will continue to monitor and adjust dosing as required. Follow-Up Labs Follow-Up Labs: Trough: Vancomycin (02/29/24 at 0830)
[2024-02-28] MEDS: Vancomycin HCl 750 MG in 0.9% Normal Saline (250mL Bag) 250 ML 250 MG IV ×2 (08:28→20:41)
--- NOTE | 2024-02-28 09:17 | PCM.PN.HOSP ---
Subjective Subjective Doing well, no issues overnight INR is down to 2.6 Objective Data Objective Data Vital Signs: Vital Signs Temp Pulse Resp BP Pulse Ox O2 Del Method 97.0 F L 79 18 129/65 H 99 Room Air 02/28/24 06:20 02/28/24 06:28 02/28/24 06:20 02/28/24 06:28 02/28/24 06:20 02/28/24 06:20 Oxygen Delivery Method Room Air Weight: 195 lb 5.273 oz Body Mass Index (BMI) 27.2 Intake & Output: Intake and Output for Last 24 Hours 02/27/24 02/28/24 02/29/24 03:59 03:59 03:59 Intake Total 1090 / 1090 1510 / 1510 50 / 50 Output Total 1025 / 1025 2500 / 2500 650 / 650 Balance 65 / 65 -990 / -990 -600 / -600 Lab / Micro Data 02/28/24 05:50 02/28/24 05:50 Labs: Laboratory Results - last 24 hr 02/27/24 11:06: POC Glucose 198 H 02/27/24 16:45: POC Glucose 232 H 02/27/24 21:26: Vancomycin Trough 22.1 H 02/27/24 21:58: POC Glucose 179 H 02/28/24 05:50: WBC 6.7, RBC 2.44 L, Hgb 7.3 L, Hct 23.0 L, MCV 94.3 H, MCH 29.9, MCHC 31.7 L, RDW Std Deviation 45.8 H, RDW Coeff of Estrada 13.3, Plt Count 320, MPV 9.6, Immature Gran % (Auto) 0.900, Neut % (Auto) 63.7, Lymph % (Auto) 17.4 L, [place] % (Auto) 12.2 H, Eos % (Auto) 5.3 H, Baso % (Auto) 0.5, Absolute Neuts (auto) 4.2, Absolute Lymphs (auto) 1.16, Nucleated RBC % 0, PT 27.2 H, INR 2.6, Sodium 138, Potassium 3.8, Chloride 109 H, Carbon Dioxide 24.0, Anion Gap 5, BUN 21 H, Creatinine 0.88, Estim Creat Clear Calc 82.00, Est GFR (MDRD) Af Amer 109, Est GFR (MDRD) Non-Af 90, BUN/Creatinine Ratio 23.8 H, Glucose 116 H, Calcium 8.8, Random Vancomycin 16.2 H 02/28/24 06:23: POC Glucose 117 H Micro: Microbiology 02/25/24 12:56 Wound - Right Foot Gram Stain - Final 02/25/24 12:56 Wound - Right Foot Wound Culture - Preliminary Proteus mirabilis Morganella morganii sp morgani Klebsiella pneumoniae sp pneum Meth. resistant Staph. aureus 02/25/24 12:56 Wound - Right Foot Anaerobic Culture - Final Anaerobic cocci 02/25/24 01:52 Wound - Right Foot Gram Stain - Final 02/25/24 01:52 Wound - Right Foot Wound Culture - Preliminary Meth. resistant Staph. aureus Coag Negative Staph Coag Negative Staph#2 Morganella morganii sp morgani Klebsiella oxytoca 02/24/24 17:00 Blood Culture (Wb) - Anticubital Right Blood Culture - Preliminary No growth in 48 hours. Physical Exam Narrative General: Alert, Oriented x3, Cooperative, No apparent distress HEENT: Atraumatic, PERRLA, EOMI, Normocephalic Oral: Moist Mucosa Neck: Supple, No JVD Lungs: Diminished, Normal air movement, No rhonchi, No wheeze, No rales Cardiovascular: Regular rate, Regular Rhythm, Normal S1, Normal S2, No murmurs Abdomen: Soft, Non Tender, Non-Distended, No Hepato-splenomegaly Extremities: Trace edema, Capillary Refill Less than 3 Seconds Skin: Right lower extremity wrapped, dressing in place Musculoskeletal: No Tenderness to Palpation of Joints or Extremities Neurological: No focal neurological deficits, Motor Exam 5/5 strength throughout, Sensory exam intact to light touch and pain Psych/Mental Status: Normal Affect, Appropriate Assessment & Plan Assessment/Plan (1) Diabetic foot infection: (2) Supratherapeutic INR: PLAN: Plan 1. Right lower extremity diabetic foot infection with likely osteomyelitis ? Concern for gas gangrene ? Continue broad-spectrum antibiotics ? Appreciate podiatry's assistance, plan for operative intervention ? Plan for angio today with vascular surgery ? Cultures are polymicrobial with Proteus, Morganella, Klebsiella, MRSA, will consult ID 2. CAD status post CABG/PAD status post femoral-popliteal bypass/essential HTN/HLD/aortic valve disease/chronic systolic CHF ? Has [place] mechanical valve, will need to be bridged if he needs to be reversed completely for surgery ? INR was supratherapeutic, will hold Coumadin but not reverse in anticipation of surgery ? Echo 10/30/2022 with an EF of 40 to 45% and normal AV bioprosthetic valve ? Continue with aspirin and Plavix ? Blood pressure stable ? Can continue with his home blood pressure medications, will monitor and make adjustments as necessary 3. DM2 with neuropathy ? Continue to hold his home medications ? Sign scale insulin ? Accu-Cheks ACHS ? Will monitor make adjustments as necessary 4. Iron deficiency anemia ? Iron levels low ferritin is normal ? Continue with his oral iron replacement 5. Anxiety/depression ? Stable ? Continue with his home medications 6. Chronic COPD ? Stable ? Continue with his home inhalers ? Not in exacerbation 7. GERD ? Stable ? Continue with PPI DVT: Therapeutic INR Charges/Coding Visit Charges Inpatient E&M: 62267 Subs Hosp L2
--- NOTE | 2024-02-28 10:48 | PCM.PN.ID ---
Physical Exam Narrative Feeling ok this AM, no fever, no pain in foot, no n/v/d. Const alert and no apparent distress General Appearance: cooperative Resp normal air movement and clear to auscultation bilaterally Cardio regular rate and regular rhythm GI soft to palpation, non-tender and non-distended Skin Skin Narrative: foot wrapped ID ID: Route of nutrition/ use of supplements: [] Nutritional Intake: [] IV Site: [] Abreu Catheter: [] Assessment & Plan Assessment/Plan (1) Osteomyelitis of right foot: QUALIFIERS: Osteomyelitis type: subacute Qualified Code(s): M86.271 - Subacute osteomyelitis, right ankle and foot PLAN: Wound cultures with MRSA, proteus, morganella, klebs x2, CoNS x2, anaerobes. On vanc/zosyn, and clinda for gas formation. Will follow (2) Gas gangrene: (3) Diabetes mellitus: (4) PVD (peripheral vascular disease):
[2024-02-28 11:47] LABS: Bedside Glucose 101 mg/dL (74-106)
--- NOTE | 2024-02-28 12:07 | CASEMGMT ---
Social Work SW received a call from pt's case consultant/transitions of care worker Doug from [facility]. She states pt has Medicaid Waiver services--pt has a life alert button, 7 home delivered meals and a ramp. Pt does not have any aide services. Doug inquired the discharge plan. SW explained pt having procedures today and tomorrow and it is anticipated pt may need senior living placement after this, SW plans to speak w/pt today about it. Doug's callback for updates is [phone]. SW met w/pt in regard to discharge plan. Pt would still prefer to go home, but will consider SNF if needed. SW did provide to pt a list from [facility] of half-way facilities in network with insurance, in pt's preferred geographic area, and complete w/quality and resource use data. Pt's preference would be to go to [facility] if needed, he has been there before. SW will continue to follow, will follow up w/pt once he has had the procedures the next two days and has had some PT/OT. DARIO Heredia
--- NOTE | 2024-02-28 16:49 | PCM.PN.SRG ---
Subjective Subjective Patient currently down with vascular surgery for angio to the right lower extremity. No acute events overnight per nursing notes. Objective Data Objective Data Vital Signs: Vital Signs Temp Pulse Resp BP Pulse Ox O2 Del Method 98.1 F 80 16 128/58 H 100 Room Air 02/28/24 12:20 02/28/24 12:20 02/28/24 12:20 02/28/24 12:20 02/28/24 12:20 02/28/24 12:20 Oxygen Delivery Method Room Air Weight: 88.6 kg Body Mass Index (BMI) 27.2 Intake & Output: Intake and Output for Last 24 Hours 02/26/24 02/27/24 02/28/24 23:59 23:59 23:59 Intake Total 1026.88 / 1326.88 1810 / 1810 415 / 415 Output Total 650 / 1375 3225 / 3225 1650 / 1650 Balance 376.88 / -48.12 -1415 / -1415 -1235 / -1235 Lab / Micro Data 02/28/24 05:50 02/28/24 05:50 Labs: Laboratory Results - last 24 hr 02/27/24 16:45: POC Glucose 232 H 02/27/24 21:26: Vancomycin Trough 22.1 H 02/27/24 21:58: POC Glucose 179 H 02/28/24 05:50: WBC 6.7, RBC 2.44 L, Hgb 7.3 L, Hct 23.0 L, MCV 94.3 H, MCH 29.9, MCHC 31.7 L, RDW Std Deviation 45.8 H, RDW Coeff of Estrada 13.3, Plt Count 320, MPV 9.6, Immature Gran % (Auto) 0.900, Neut % (Auto) 63.7, Lymph % (Auto) 17.4 L, [place] % (Auto) 12.2 H, Eos % (Auto) 5.3 H, Baso % (Auto) 0.5, Absolute Neuts (auto) 4.2, Absolute Lymphs (auto) 1.16, Nucleated RBC % 0, PT 27.2 H, INR 2.6, Sodium 138, Potassium 3.8, Chloride 109 H, Carbon Dioxide 24.0, Anion Gap 5, BUN 21 H, Creatinine 0.88, Estim Creat Clear Calc 82.00, Est GFR (MDRD) Af Amer 109, Est GFR (MDRD) Non-Af 90, BUN/Creatinine Ratio 23.8 H, Glucose 116 H, Calcium 8.8, Random Vancomycin 16.2 H 02/28/24 06:23: POC Glucose 117 H 02/28/24 11:30: POC Glucose 101 Micro: Microbiology 02/25/24 01:52 Wound - Right Foot Gram Stain - Final 02/25/24 01:52 Wound - Right Foot Wound Culture - Preliminary Meth. resistant Staph. aureus Coag Negative Staph Coag Negative Staph#2 Morganella morganii sp morgani Klebsiella oxytoca 02/25/24 12:56 Wound - Right Foot Gram Stain - Final 02/25/24 12:56 Wound - Right Foot Wound Culture - Preliminary Proteus mirabilis Morganella morganii sp morgani Klebsiella pneumoniae sp pneum Meth. resistant Staph. aureus Gram Positive Cocci 02/25/24 12:56 Wound - Right Foot Anaerobic Culture - Final Anaerobic cocci 02/24/24 17:00 Blood Culture (Wb) - Anticubital Right Blood Culture - Preliminary No growth in 48 hours. Physical Exam Narrative Unable to obtain Assessment & Plan Assessment/Plan (1) Gas gangrene: PLAN: Chart Reviewed Plan for surgery, will take the patient to the operating room Tuesday at 12:00 pm, right foot transmetatarsal amputation with musculocutaneous flap closure and tendo Achilles lengthening. Patient to be n.p.o. midnight tonight. Cx: MRSA, proteus, morganella, klebs x2, CoNS x2, anaerobes. Vascular: Plan for angio today Medicine: On board, medical management Cardiology: On board Infectious disease: On board, IV antibiotics: vanc/zosyn, and clinda Podiatry will continue to follow while patient is in house. Please reach out to Dr. Lyons with any questions or concerns (2) Osteomyelitis of right foot: QUALIFIERS: Osteomyelitis type: subacute Qualified Code(s): M86.271 - Subacute osteomyelitis, right ankle and foot (3) Non-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: (4) Cellulitis: QUALIFIERS: Laterality: right Site of cellulitis: extremity Site of cellulitis of extremity: lower extremity Qualified Code(s): L03.115 - Cellulitis of right lower limb
[2024-02-28 18:41] LABS: ACT Activated Clotting Time 226 sec (74-137)
[2024-02-28 18:41] LABS: ACT Activated Clotting Time 238 sec (74-137)
--- NOTE | 2024-02-28 18:51 | PCM.OPRPT ---
Report of Operation Date of Procedure: 02/28/24 Pre-Operative Diagnosis: atherosclerosis with diabetic foot infection, right lower extremity Post-Operative Diagnosis: same Surgery/Procedure Performed:: aortogram, right lower extremity runoff IVUS right common femoral, SFA/popliteal, TP trunk, peroneal artery atherectomy/DCB SFA/popliteal mechanical thrombectomy peroneal angioplasty/stent peroneal Surgeon: Kendrick May Type of Anesthesia: Local and Sedation,Conscious Estimated Blood Loss (mL): 30 Description of Procedure: HPI: Patient is a 73-year-old male with diabetic foot infection of the right lower extremity and history of atherosclerosis with prior intervention of the SFA popliteal as well as the peroneal artery. He is taken now for angiography to optimize his perfusion prior to his partial foot amputation. Description of procedure: Upon obtaining form consent and verification correct patient procedure site patient was taken to the [facility] he was positioned prepped and draped in usual sterile fashion. Timeouts performed conscious sedation was ministered Versed and fentanyl. Skin overlying the left common femoral arteries anesthetized 1% lidocaine the vessel accessed under ultrasound guidance with a micropuncture. This was exchanged for micropuncture sheath routine injection iliofemoral angiogram was performed revealing satisfactory positioning and no extravasation or dissection. Through the micropuncture sheath PerfectHitchson wire was advanced the micropuncture sheath exchanged for a short 5 Palestinian sheath. Through the 5 Palestinian sheath and Omni Flush catheter was advanced into the abdominal aorta and a digital traction aortogram pelvic angiogram was performed. This revealed diffuse calcified atherosclerosis with no significant stenosis of the abdominal aorta and the bilateral common and external iliac arteries. Using a glide advantage wire we navigated into the contralateral iliac system advancing our catheter into the distal external iliac artery. This position sequential subtraction angiography the right lower extremity is performed which revealed moderate diffuse calcified atherosclerosis of the SFA popliteal with no significant stenosis until the P2 segment of the popliteal artery which had 3 segments of tandem lesions. The anterior tibial artery occluded just beyond its origin, the tibioperoneal trunk was patent with no significant stenosis, the posterior tibial artery occluded at its origin, and the peroneal artery was a dominant runoff to the foot with no significant atherosclerosis or stenosis. Is felt that the popliteal lesions would potentially contribute to poor perfusion and negatively affect his wound healing so the plan was to treat these. Patient was then heparinized allowed circulate for 3 minutes and serial ACT's obtained. Through the Omni Flush catheter and glide advantage wire was readvanced and the Omni Flush catheter withdrawn and the 5 Palestinian sheath exchanged for a 6 Palestinian Ansell sheath which was advanced into the contralateral common femoral artery. From this position using the glide advantage wire and an angled quick cross catheter we able to navigate the distal popliteal artery lesions advancing our wire and catheter ultimately into the peroneal artery. Repeat angiography confirmed satisfactory positioning with no evidence of any subintimal tract. The glide advantage wire was exchanged for a command 18 wire and the quick cross catheter withdrawn. Intravascular shunt probe was then advanced over the wire and recorded pullback performed of the peroneal artery, tibioperoneal trunk, popliteal artery, SFA, common femoral. This confirmed moderate diffuse calcified atherosclerosis of the SFA and the proximal popliteal with no significant stenosis until the mid to distal popliteal. There were lesions of greater than 70% stenosis in 3 separate locations with the 2 most distal lesions in close proximity be treated in a single segment. Reference vessel measurements were then obtained and the quick cross catheter readvanced after which the command wire was exchanged for the Evangeline wire. A Evangeline rotational atherectomy device was then advanced over the wire and engaged across the proximal lesion and then disengaged. Is then advanced and engaged for 2 passes across the distal lesions in the distal popliteal artery. The device was then withdrawn and repeat angiography revealed significant improvement in lumen with brisk contrast transit with no obvious extravasation dissection. The Evangeline wire was then exchanged for the command 18 wire and a melisa 6 x 80 angioplasty balloon advanced in position and inflated to nominal for 3 minutes then deflated withdrawn. Repeat angiography revealed satisfactory lesion response however there was less brisk contrast transit. An Dawkins paclitaxel coated angioplasty balloon 6 x 80 was then advanced in the position and inflated for 2 minutes and deflated withdrawn. Repeat angiography again revealed satisfactory lesion response but with slow contrast transit. We then focused our imaging more distally which revealed what appeared to be embolic debris in the peroneal artery. Using the command wire we able to navigate across the segment Bentson the wire into normal appearing peroneal artery distally. The quick cross catheter then advanced and the wire withdrawn and hand-injection angiography performed revealed position within patent lumen with no distal debris. We then readvanced the command wire and withdrew the quick cross catheter. A jeti SvitStyle mechanical thrombectomy device was then brought to field prep for dial maker instructions. This was then advanced over the wire however it met resistance at an angulated segment of the peroneal artery. On imaging this appeared to be section where there was some mild calcified plaque. The device was then withdrawn and the segment balloon angioplasty with a 3.5 x 20 angioplasty balloon. The balloon was then withdrawn, the command wire exchanged for an 035 wire, and the device readvanced without any difficulty. The 035 wire was then exchanged for a command 18 wire again and the device engaged across the segment of occlusion. Repeat imaging revealed resolution of some length of the debris however there was not full clearance of it and there remained a segment of short occlusion. We made further efforts to aspirate the debris without resolution. The device was then withdrawn and a 3.5 x 40 mm paclitaxel coated balloon expandable coronary stent was then advanced in position covering the entirety of the extent of the occluded segment and debris. This was then inflated and deployed to nominal for 2 minutes and then deflated and withdrawn. Completion angiography revealed satisfactory resolution of this segment of occlusion with no continued debris, brisk contrast transit, and no evidence of any peroneal occlusive concerns. The wires and catheters then withdrawn and the long 6 Palestinian sheath exchanged for a short 6 Palestinian sheath. A Mynx closure device was then acquired followed by 5 minutes of manual pressure with satisfactory hemostasis noted. The patient was then taken to the PCU for bedrest and recovery.
[2024-02-28] MEDS: DOXEPIN HCL 50 MG CAPSULE PO (20:14)
[2024-02-28] MEDS: Furosemide 40 MG Tablet PO (20:14)
[2024-02-28] MEDS: Atorvastatin Calcium 40 MG Tablet PO (20:14)
[2024-02-28] MEDS: Ferrous Sulfate 325 MG Tablet PO (20:14)
[2024-02-28] MEDS: Pantoprazole Sodium 40 MG Tablet PO (20:15)
[2024-02-28] MEDS: Gabapentin 100 MG Capsule PO (21:26)
[2024-02-28] MEDS: Mirtazapine 15 MG Tablet 7.5 MG PO (21:26)
[2024-02-28] MEDS: Insulin Glargine-YFGN 100 UNIT/ML Pen 15 UNIT SC (21:30)
[2024-02-28] MEDS: Insulin Lispro 100 UNIT/ML INSULN.PEN SC ×2 (21:33)
[2024-02-28 21:55] LABS: Bedside Glucose 178 mg/dL (74-106)
[2024-02-29] VITALS (18 sets, daily range): BP systolic 93–122; BP diastolic 47–72; PULSE 78–104; RESP 15–29; TEMP 36.3–36.9; O2SAT 93–100; BMI 27.2; BMI 26.7
[2024-02-29] MEDS: Clindamycin 600 MG/50 ML BAG 100 MG IV ×3 (05:13→22:16)
[2024-02-29] MEDS: Piperacil/Tazobactam 3.375 GM in 0.9% Normal Saline (50mL MB+) 50 ML IV ×3 (05:16→22:18)
[2024-02-29 05:44] LABS: Absolute Neutrophil Count 6.4 X10^3/uL (2.0-7.7); Basophil# 0.04 X10^3/uL; Basophil% 0.5 % (0-1); Eosinophil# 0.13 X10^3/uL; Eosinophils% 1.6 % (0-5); Hematocrit 22.6 % (40-54); Hemoglobin 7.3 g/dL (13.0-16.5); Mean Corp Hgb Conc 32.3 g/dL (32-36); Mean Corpuscular Hgb 30.3 pg (27.0-32.0); Mean Corpuscular Volume 93.8 fL (80-94); Mean Platelet Vol. 9.4 fl (6.2-12.0); Monocyte# 0.72 X10^3/uL; Monocyte% 8.8 % (0-10); NRBC Flagged by Analyzer 0 % (0-5); Neutrophil # 6.37 X10^3/uL (2.7-7.7); Neutrophil % 77.5 % (47-70); Platelet Count 341 K/mm3 (150-450); RBC Distribution Width CV 13.3 % (11.6-14.6); RBC Distribution Width SD 45.7 fl (35.1-43.9); Red Blood Count 2.41 M/mm3 (4.6-6.2); White Blood Count 8.2 K/mm3 (4.4-11.0)
[2024-02-29 05:52] LABS: International Normalized Ratio 2.5; Prothrombin Time (Protime)PT. 26.5 SECONDS (11.7-14.9)
[2024-02-29 06:28] LABS: Anion Gap 6 (5-15); BUN 15 mg/dL (7-18); BUN/Creat Ratio 17.5 RATIO (10-20); Calcium,Total 8.3 mg/dL (8.5-10.1); Chloride 108 mmol/L (98-107); Creatinine, Serum 0.86 mg/dL (0.70-1.30); EST Glomerular Filtration Rate 93 mL/min (>60); Est Glom Filt Rate - Afr Amer 113 mL/min (>60); Estimated Creatinine Clearance 83.91 ml/min; Glucose 111 mg/dL (74-106); Potassium 3.4 mmol/L (3.5-5.1); Sodium Level 138 mmol/L (136-145)
[2024-02-29 06:51] LABS: Bedside Glucose 99 mg/dL (74-106)
[2024-02-29] MEDS: Budesonide Respules 0.5 MG/2 ML AMPUL.NEB. INHALATION (07:14)
--- NOTE | 2024-02-29 08:32 | PN.HOSP_ITS ---
Reason for Visit Reason for Visit: Diagnoses Gas gangrene (02/24/24) Type 2 diabetes mellitus with other skin complications (02/24/24) Type 2 diabetes mellitus without complications (02/24/24) Atherosclerosis of redding arteries of right leg with ulceration of other part of foot (02/24/24) Peripheral vascular disease, unspecified (02/24/24) Cellulitis of right lower limb (02/24/24) Local infection of the skin and subcutaneous tissue, unspecified (02/24/24) Non-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 (02/24/24) Short Achilles tendon (acquired), right ankle (02/24/24) Subacute osteomyelitis, right ankle and foot (02/24/24) Abnormal coagulation profile (02/24/24) Encounter for preprocedural cardiovascular examination (02/24/24) Subjective Subjective Feels well post op. Objective Data Objective Data Vital Signs: Vital Signs Temp Pulse Resp BP Pulse Ox O2 Del Method 36.8 C 78 18 93/49 L 100 Room Air 02/29/24 08:00 02/29/24 08:00 02/29/24 08:00 02/29/24 08:00 02/29/24 08:00 02/29/24 08:00 Oxygen Delivery Method Room Air Weight: 87.1 kg Body Mass Index (BMI) 26.7 Intake & Output: Intake and Output for Last 24 Hours 02/27/24 02/28/24 02/29/24 23:59 23:59 23:59 Intake Total 1810 / 1810 830 / 830 100 / 100 Output Total 3225 / 3225 2000 / 2350 950 / 950 Balance -1415 / -1415 -1170 / -1520 -850 / -850 Lab / Micro Data 02/29/24 05:15 02/29/24 05:15 Labs: Laboratory Results - last 24 hr 02/28/24 11:30: POC Glucose 101 02/28/24 16:23: Activated Clotting Time 238 H 02/28/24 17:13: Activated Clotting Time 226 H 02/28/24 21:31: POC Glucose 178 H 02/29/24 05:15: WBC 8.2, RBC 2.41 L, Hgb 7.3 L, Hct 22.6 L, MCV 93.8, MCH 30.3, MCHC 32.3, RDW Std Deviation 45.7 H, RDW Coeff of Estrada 13.3, Plt Count 341, MPV 9.4, Immature Gran % (Auto) 0.600, Neut % (Auto) 77.5 H, Lymph % (Auto) 11.0 L, Preble % (Auto) 8.8, Eos % (Auto) 1.6, Baso % (Auto) 0.5, Absolute Neuts (auto) 6.4, Absolute Lymphs (auto) 0.90, Nucleated RBC % 0, PT 26.5 H, INR 2.5, Sodium 138, Potassium 3.4 L, Chloride 108 H, Carbon Dioxide 24.0, Anion Gap 6, BUN 15, Creatinine 0.86, Estim Creat Clear Calc 83.91, Est GFR (MDRD) Af Amer 113, Est GFR (MDRD) Non-Af 93, BUN/Creatinine Ratio 17.5, Glucose 111 H, Calcium 8.3 L 02/29/24 06:32: POC Glucose 99 Micro: Microbiology 02/25/24 01:52 Wound - Right Foot Gram Stain - Final 02/25/24 01:52 Wound - Right Foot Wound Culture - Final Meth. resistant Staph. aureus Coag Negative Staph Coag Negative Staph#2 Morganella morganii sp morgani Klebsiella oxytoca 02/25/24 12:56 Wound - Right Foot Gram Stain - Final 02/25/24 12:56 Wound - Right Foot Wound Culture - Final Proteus mirabilis Morganella morganii sp morgani Klebsiella pneumoniae sp pneum Meth. resistant Staph. aureus 02/25/24 12:56 Wound - Right Foot Anaerobic Culture - Final Anaerobic cocci 02/24/24 17:00 Blood Culture (Wb) - Anticubital Right Blood Culture - Preliminary No growth in 48 hours. Physical Exam Const alert and no apparent distress HEENT head/scalp atraumatic and moist oral mucous membranes Resp normal respiratory effort, no retractions, no use of accessory muscles and clear to auscultation bilaterally Cardio regular rate, regular rhythm, S1 normal heart sound and S2 normal heart sound GI normal to inspection, nondistended, normoactive bowel sounds, soft to palpation, non-tender and non-distended Extremity Extremity Narrative: right foot bandaged. left 2nd toe previously resected. Neuro Sensorium / Orientation: awake and alert Assessment & Plan Assessment/Plan (1) Diabetic foot infection: (2) Supratherapeutic INR: PLAN: Plan Right lower extremity diabetic foot infection with likely osteomyelitis * Concern for gas gangrene * Vancomycin and pip/tazo * aortogram, right lower extremity runoff IVUS right common femoral, SFA/popliteal, TP trunk, peroneal artery, atherectomy/DCB SFA/popliteal, mechanical thrombectomy peroneal, angioplasty/stent peroneal * 02/28: Tendo Achilles lengthening, right lower extremity; Transmetatarsal amputation, right foot; Application of antibiotic beads, vancomycin, right foot; Musculocutaneous flap closure, right foot; Application of posterior splint, right lower extremity * Cultures are polymicrobial with Proteus, Morganella, Klebsiella, MRSA, will consult ID * ID following Chronic conditions: * CAD status post CABG/PAD status post femoral-popliteal bypass/essential HTN/HLD/aortic valve disease/chronic systolic CHF: Has [place] mechanical valve, will need to be bridged if he needs to be reversed completely for surgery. INR was supratherapeutic, will hold Coumadin but not reverse in anticipation of surgery. Echo 10/30/2022 with an EF of 40 to 45% and normal AV bioprosthetic valve. Continue with aspirin and Plavix. Blood pressure stable. Can continue with his home blood pressure medications, will monitor and make adjustments as necessary * DM2 with neuropathy: Continue to hold his home medications. Sliding scale insulin. Accu-Cheks ACHS. Will monitor make adjustments as necessary * Iron deficiency anemia: Continue with his oral iron replacement * Anxiety/depression: Stable. Continue with his home medications * Chronic COPD: Stable. Continue with his home inhalers. * GERD: Stable. Continue with PPI VTE prophylaxis: not indicated as already anticoagulated. Charges/Coding Visit Charges Inpatient E&M: 97345 Subs Hosp L2
[2024-02-29 08:34] LABS: Bedside Glucose 93 mg/dL (74-106)
[2024-02-29 09:00] LABS: Vancomycin, Trough Level 18.8 ug/mL (5.0-15.0)
--- NOTE | 2024-02-29 09:21 | PCM.RX.CS ---
Consult Antibiotic Management Pharmacy has been consulted to manage selected antibiotic: Vancomycin Type of Intervention Type of Consult: Follow-up Suspected Infection Suspected Infection: Other (diabetic foot) Prior Doses of Antibiotics Prior Doses of Antibiotics Received/Current Regimen: Presently on 750mg iv q12h. Labs Labs: Sodium 138 mmol/L (136-145) 02/29/24 05:15 Potassium 3.4 mmol/L (3.5-5.1) L 02/29/24 05:15 Chloride 108 mmol/L (98-107) H 02/29/24 05:15 Carbon Dioxide 24.0 mmol/L (21.0-32.0) 02/29/24 05:15 Anion Gap 6 (5-15) 02/29/24 05:15 BUN 15 mg/dL (7-18) 02/29/24 05:15 Creatinine 0.86 mg/dL (0.70-1.30) 02/29/24 05:15 Est GFR (MDRD) Af Amer 113 mL/min (>60) 02/29/24 05:15 Est GFR (MDRD) Non-Af 93 mL/min (>60) 02/29/24 05:15 BUN/Creatinine Ratio 17.5 RATIO (10-20) 02/29/24 05:15 Glucose 111 mg/dL (74-106) H 02/29/24 05:15 Vancomycin Trough 18.8 ug/mL (5.0-15.0) H 02/29/24 08:00 Random Vancomycin 16.2 ug/mL (0.0-15.0) H 02/28/24 05:50 Microbiology Microbiology: Microbiology 02/25/24 01:52 Wound - Right Foot Gram Stain - Final 02/25/24 01:52 Wound - Right Foot Wound Culture - Final Meth. resistant Staph. aureus Coag Negative Staph Coag Negative Staph#2 Morganella morganii sp morgani Klebsiella oxytoca 02/25/24 12:56 Wound - Right Foot Gram Stain - Final 02/25/24 12:56 Wound - Right Foot Wound Culture - Final Proteus mirabilis Morganella morganii sp morgani Klebsiella pneumoniae sp pneum Meth. resistant Staph. aureus 02/25/24 12:56 Wound - Right Foot Anaerobic Culture - Final Anaerobic cocci 02/24/24 17:00 Blood Culture (Wb) - Anticubital Right Blood Culture - Preliminary No growth in 48 hours. Dosing Weight Weight used for dosin.5 kg Estimated Creatinine Clearance Estimated Creatinine Clearance: 84 ml/min Goal Trough Goal Trough: 15-20 mcg/mL Pharmacy Plan for Drug Dosing Pharmacy Plan for Drug Dosing: Trough level today ~11.5 hrs post dose was 18.8 and in therapeutic range. Renal function about same. Recommend continuing same dose of 750mg iv q12h with new trough level before another 4th dose per protocol. Pharmacy Service will continue to monitor and adjust dosing as required. Follow-Up Labs Follow-Up Labs: Trough: Vancomycin (03.01.24 @)
[2024-02-29] MEDS: 0.9% Saline Lock 10 ML Syringe IV ×2 (09:48→14:47)
[2024-02-29] MEDS: Vancomycin HCl 750 MG in 0.9% Normal Saline (250mL Bag) 250 ML 250 MG IV ×2 (09:48→19:57)
--- NOTE | 2024-02-29 11:00 | RAD_ITS ---
INDICATION: WOUND EXAMINATION/TECHNIQUE: X-RAY - RIGHT XR Foot 2 Views 15 VIEWS COMPARISON: Prior study dated: 02/24/2024 FINDINGS: Views of the right foot were obtained intraoperatively on a C-arm for amputation of the distal metatarsals. Views were obtained for documentation. Number of fluoroscopic images 7. Fluoroscopy time: 16 seconds. Radiation dose: 0.08 mGy RAD/Foot 2 Views IMPRESSION: Intraoperative exam as described above. Electronically Signed: Chicho Lake MD at 15:08 EDT ,
[2024-02-29] MEDS: Lactated Ringers 1,000 ML 15 ML IV (11:25)
--- NOTE | 2024-02-29 11:29 | PCM.PRE.AN2 ---
ASA Classification* ASA Classification ASA Classification: 3 Assessment & Plan Anesthesia* Anesthesia Assessment Anesthesia Assessment: Discussed sedation and/or anesthesia options, risks, benefits, and alternatives with patient/parents/legal guardian/POA. Questions invited. The patient/parents/legal guardian/POA seems to understand and agrees to proceed with anesthesia plan. Reviewed the physical assessment, medical history, allergy history and patient home medications list prior to surgery/procedure/anesthetic and documented any changes. Performed airway and anesthesia risk assessments. Anesthesia Type Anesthesia Type: General History Source History Obtained from:: Patient and Chart Anesthesia Focused Assessment* Temperature: 98.4 F Pulse Rate: 78 Blood Pressure: 104/53 Respiratory Rate: 18 Pulse Ox: 95 Oxygen Delivery Method: Room Air Airway Assessment Mouth opens: >3 cm Mallampati Score: III Teeth Condition: Chipped/Broken (Multiple chipped.) and Missing (Multiple missing.) Neck Range of motion (ROM): Limited ROM (Decreased extension.) Pertinent Findings EKG Pertinent Findings:: February 27, 2024. Normal sinus rhythm. Cannot rule out anterior infarct. Focused Labs Anesthesia Preop lab: CBC WBC 8.2 K/mm3 (4.4-11.0) 02/29/24 05:15 RBC 2.41 M/mm3 (4.6-6.2) L 02/29/24 05:15 Hgb 7.3 g/dL (13.0-16.5) L 02/29/24 05:15 Hct 22.6 % (40-54) L 02/29/24 05:15 Plt Count 341 K/mm3 (150-450) 02/29/24 05:15 CHEMISTRY Potassium 3.4 mmol/L (3.5-5.1) L 02/29/24 05:15 Sodium 138 mmol/L (136-145) 02/29/24 05:15 Magnesium 1.6 mg/dL (1.6-2.6) 02/24/24 17:00 Phosphorus 2.9 mg/dL (2.5-4.9) 12/15/22 08:26 BUN 15 mg/dL (7-18) 02/29/24 05:15 Creatinine 0.86 mg/dL (0.70-1.30) 02/29/24 05:15 Glucose 111 mg/dL (74-106) H 02/29/24 05:15 POC Glucose 93 mg/dL (74-106) 02/29/24 08:17 TSH 1.24 uIU/mL (0.358-3.74) 02/13/24 13:53 COAG PT 26.5 SECONDS (11.7-14.9) H 02/29/24 05:15 Pre-Assessment Diagnosis/Proposed Procedure Planned Operative Procedure(s): Transmetatarsal amputation, musculocutaneous flap closure, tendo Achilles heel lengthening. Application of posterior splint. Right lower extremity. Anesthesia History Anesthesia History - receiver: Anesthesia History - receiver Hx Hospitalization No 11/03/23 09:22 Any Problems With Anesthesia No 02/29/24 03:00 Cholinesterase deficiency No 02/29/24 03:00 You/Your Family Experience No 02/29/24 03:00 fever (hyperthermia) with Relationship Recent Exposure to Contagious No 02/29/24 03:00 Disease Does patient have nerve No 02/29/24 03:00 stimulator Patient instructed to have device shut off --Does patient have Pacemaker No 02/28/24 03:00 or ICD? When Was Last Pacemaker Check QUESTION #4 FULL TEXT: You/Your Family Experience fever (hyperthermia) with Anesthesia Last Oral Intake Last Oral intake: Last Oral Intake NPO since 00:00 02/29/24 11:21 Meds taken in AM with sips of No 02/29/24 11:21 water? Meds patient instructed to tylenol 02/28/24 03:00 take am of surgery PONV PONV - receiver: PONV - receiver Female HX of Motion Sickness HX of N/V After Surgery Non-Smoker Duration of Surgery greater than 60 minutes Number of Risk Factors PONV Score Height & Weight Height & Weight: Anesthesia: Height & Weight Height 5 ft 11 in 02/29/24 11:21 Weight: 87.1 kg 02/29/24 11:21 Body Mass Index (BMI) 26.7 02/29/24 11:21 Respiratory Assessment Respiratory Assessment - receiver: Respiratory Tract Infection Hx - receiver Hx Respiratory Tract Infection No 02/29/24 03:00 STOP Sleep Apnea STOP Sleep Apnea - receiver: STOP Sleep Apnea - receiver Hx Hypertension Yes 08/11/24 08:43 Hx Sleep Apnea No 02/24/24 20:20 CPAP No 11/03/23 09:22 BIPAP No 11/03/23 09:22 Do you snore loudly (louder No 02/24/24 20:20 than talking or can be heard Do you often feel tired/ No 02/24/24 20:20 fatigued/ sleepy during daytime? Has anyone observed you stop No 02/24/24 20:20 breathing during sleep? STOP Results Negative 02/24/24 20:20 QUESTION #5 FULL TEXT : Do you snore loudly (louder than talking or can be heard through closed doors)? Tobacco Use History Tobacco Use History - receiver: Tobacco Use History - receiver Tobacco Use Cigarettes 01/20/23 09:53 Smoking Status Current every day smoker 02/25/24 04:23 Hx Tobacco Use Yes 02/24/24 20:20 Years Smoking Packs Smoked per Day Smoking Cessation Date was within the last 15 years Hx Smoking Cessation Date Hx Smoking Cessation No 02/24/24 20:20 Counseling Hematologic Medial History Hematologic Hx - receiver: Hematologic Medical Hx - eye physician Hx of Blood Transfusion No 02/24/24 20:20 Hx of Transfusion in last 3 No 02/24/24 20:20 Months Date of Last Transfusion (if within last 3 months) Ever experience any problems No 02/24/24 20:20 with transfusion(s)? Specify any problems Hx of Preganancy in last 3 N/A 02/24/24 20:20 Months Nurse Filling Out Transfusion DONALD 02/24/24 20:20 & Questions: Date: 02/24/24 02/24/24 20:20 Time: 20:41 02/24/24 20:20 Patient unable to answer at this time (ie. confused, unrespo /Reproduction History /Reproductive History - receiver: /Reproductive Hx- receiver Hx Now No 02/29/24 03:00 Gestational Age (in weeks): EDC: Hx Hx Para Hx Section SAB No 02/29/24 03:00 Active Medications Active Medications: Current Medications Generic Name Dose Route Start Last Admin Trade Name Freq PRN Reason Stop Dose Admin Acetaminophen 650 mg 02/24/24 20:27 02/28/24 01:55 Acetaminophen 325 Mg Tablet PO 650 mg Q4H PRN PRN Administration Fever, pain 1-04/26 Al Hydrox/Mg Hydrox/Simethicone 30 ml 02/24/24 20:27 Mag /Aluminum/Simeth Wch Udc 30 Ml Oral.Susp PO Q6H PRN PRN Gastric Burning Albuterol Sulfate 2.5 mg 02/24/24 20:27 02/25/24 19:09 Albuterol 2.5 Mg/3 Ml Vial.Neb. INHALATION 2.5 mg Q2H PRN PRN Administration Dyspnea, wheezing Aspirin 81 mg 02/25/24 08:00 02/28/24 06:28 Aspirin E.C. 81 Mg Tablet PO 81 mg DAILYCM ARIA Administration Atorvastatin Calcium 40 mg 02/24/24 22:00 02/28/24 20:14 Atorvastatin Calcium 40 Mg Tablet PO 40 mg QHS ARIA Administration Budesonide 0.5 mg 02/24/24 20:27 02/29/24 07:14 Budesonide Respules 0.5 Mg/2 Ml Ampul.Neb. INHALATION 0.5 mg BID.RT ARIA Administration Clopidogrel Bisulfate 75 mg 02/25/24 10:00 02/28/24 06:29 Clopidogrel Bisulfate 75 Mg Tablet PO 75 mg DAILY ARIA Administration Cyclobenzaprine HCl 10 mg 02/24/24 20:27 Cyclobenzaprine Hcl 10 Mg Tablet PO TID PRN Muscle Pain Doxepin HCl 50 mg 02/25/24 10:00 02/28/24 20:14 Doxepin Hcl 50 Mg Capsule PO 50 mg DAILY ARIA Administration Ferrous Sulfate 325 mg 02/25/24 08:00 02/28/24 20:14 Ferrous Sulfate 325 Mg Tablet PO 325 mg DAILYCM ARIA Administration Furosemide 40 mg 02/25/24 10:00 02/28/24 20:14 Furosemide 40 Mg Tablet PO 40 mg DAILY ARIA Administration Protocol Furosemide 40 mg 02/24/24 20:27 Furosemide 40 Mg/4 Ml Vial IV X1 PRN overload after PRBC Protocol Gabapentin 100 mg 02/24/24 22:00 02/29/24 09:06 Gabapentin 100 Mg Capsule PO Not Given BID ARIA Glucagon 1 mg 02/24/24 20:27 Glucagon 1 Mg/Ml Syringe IM X1 PRN HYPOGLYCEMIA Protocol Guaifenesin 20 ml 02/24/24 20:27 Guaifenesin 10 Ml Udc (200mg/10ml) PO Q4H PRN PRN COUGH Hydralazine HCl 10 mg 02/24/24 20:27 Hydralazine 20 Mg/Ml Vial IV Q4H PRN PRN SBP > 160 Protocol Piperacillin Sod/Tazobactam 50 mls @ 12.5 mls/hr 02/24/24 22:00 02/29/24 09:37 Sod 3.375 gm/ Sodium Chloride IV Infused Q8 ARIA Infusion Vancomycin IV-PHARMACY TO DOSE 500 mls @ 250 mls/hr 02/24/24 20:27 1 each/ Sodium Chloride IV PRN PRN Rx to Dose Protocol Sodium Chloride 250 mls @ 15 mls/hr 02/24/24 20:28 IV .[id number] PRN Additional IVPB Infusion Sodium Chloride 250 mls @ 15 mls/hr 02/24/24 20:28 IV .[id number] PRN Saline Flush Sodium Chloride 1,000 mls @ 15 mls/hr 02/26/24 12:45 02/28/24 19:00 IV Not Given .Q48H ARIA Clindamycin Phosphate 600 mg in 50 mls @ 100 mls/hr 02/27/24 14:00 02/29/24 05:45 Cleocin IV Infused Q8 ARIA Infusion Vancomycin HCl 750 mg/ Sodium 265 mls @ 250 mls/hr 02/28/24 09:00 02/29/24 10:57 Chloride IV Infused Q12H ARIA Infusion Lactated Ringer's 1,000 mls @ 15 mls/hr 02/29/24 11:15 02/29/24 11:25 IV 15 mls/hr .Q48H ARIA Administration Insulin Glargine 15 unit 02/24/24 22:00 02/28/24 21:30 Insulin Glargine-Yfgn 100 Unit/Ml Pen SC 15 unit QHS ARIA Administration Insulin Human Lispro 5 unit 02/24/24 22:00 02/29/24 08:19 Insulin Lispro 100 Unit/Ml Insuln.Pen SC Not Given ACHS REPLACED BY [facility] Insulin Human Lispro 0 unit 02/24/24 22:00 02/29/24 08:19 Insulin Lispro 100 Unit/Ml Insuln.Pen SC Not Given ACHS REPLACED BY [facility] Protocol L-Arginine/L-Glutamine/Calcium HMB 1 packet 02/25/24 17:00 02/29/24 08:20 Renny (Unflavored) Packet [facility] Losartan Potassium 100 mg 02/25/24 10:00 02/29/24 09:06 Losartan Potassium 100 Mg Tablet PO Not Given DAILY REPLACED BY [facility] Protocol Melatonin 3 mg 02/24/24 20:27 Melatonin 3 Mg Tablet PO QHS PRN PRN INSOMNIA Metoprolol Succinate 25 mg 02/25/24 10:00 02/29/24 09:06 Metoprolol(Xl)Succ 25 Mg Tablet PO Not Given DAILY REPLACED BY [facility] Protocol Mirtazapine 7.5 mg 02/24/24 22:00 02/28/24 21:26 Mirtazapine 15 Mg Tablet PO 7.5 mg QHS REPLACED BY [facility] Administration Morphine Sulfate 2 - 4 mg 02/24/24 20:27 Morphine 2 Mg/Ml Syringe IV Q3H PRN PRN Pain Score 6-10 Morphine Sulfate 2 - 4 mg 02/24/24 20:39 Morphine 4 Mg/Ml Syringe IV Q3H PRN PRN Pain Score 6-10 Nicotine 21 mg 02/24/24 21:00 02/28/24 20:15 Nicotine 21 Mg Patch TD 21 mg DAILY REPLACED BY [facility] Administration Nitroglycerin 0.4 mg 02/24/24 20:27 Nitroglycerin (Inpatient Use) 0.4 Mg Tab.Subl SL Q5M PRN CARDIAC/CHEST PAIN Ondansetron HCl 4 mg 02/24/24 20:27 Ondansetron 4 Mg/2 Ml Vial IV Q8H PRN PRN NAUSEA/VOMITING Oxycodone HCl 5 mg 02/24/24 20:27 02/25/24 23:48 Oxycodone 5 Mg Tablet PO 5 mg Q4H PRN PRN Administration Pain Score 4-10 Pantoprazole Sodium 40 mg 02/25/24 10:00 02/28/24 20:15 Pantoprazole Sodium 40 Mg Tablet PO 40 mg DAILY REPLACED BY [facility] Administration Prochlorperazine Edisylate 5 mg 02/24/24 20:27 Prochlorperazine 10 Mg/2 Ml Vial IV Q4H PRN PRN Breakthrough Nausea/Vomiting Senna/Docusate Sodium 2 tablet 02/24/24 20:27 02/27/24 09:50 Senna/Docusate Sodium 1 Tablet PO 2 tablet BID PRN PRN Administration Constipation Sodium Chloride 10 - 40 ml 02/24/24 20:28 02/29/24 09:48 0.9% Saline Lock 10 Ml Syringe IV 10 ml UD PRN Administration SALINE FLUSH Vancomycin Protocol 1 lab 03/01/24 18:30 Vancomycin Trough/Random Due 03/01/24 22:[address] [facility] Medical History Atherosclerosis of [place] arteries of right leg with ulceration of other part of foot Non-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 Peripheral vascular occlusive disease Diabetic ulcer of toe of left foot associated with type 2 diabetes mellitus Ulcer of toe of left foot Atherosclerosis of [place] arteries of left leg with ulceration of other part of foot Wears glasses Alcohol use Insulin dependent diabetes mellitus Back pain Syncope Dietary restriction Cardiology follow-up encounter History of rheumatic fever ZOFIA (acute kidney injury) Recurrent right pleural effusion Osteomyelitis of toe of right foot Non-pressure chronic ulcer of other part of left foot with fat layer exposed Acute exacerbation of CHF (congestive heart failure) Anticoagulant long-term use Acute and chronic respiratory failure with hypercapnia Encephalopathy acute Acute hypercapnic respiratory failure Atherosclerosis of lower extremity with ulceration COPD (chronic obstructive pulmonary disease) Inability to walk Adult failure to thrive CHF (congestive heart failure) Smoker Congestive heart failure Sternal wound infection 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 MSSA (methicillin susceptible Staphylococcus aureus) infection History of non-ST elevation myocardial infarction (NSTEMI) (04/23/20) Non-healing surgical wound (05/01/20) [facility] current use of 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 Chronic combined systolic and diastolic CHF (congestive heart failure) Type 2 diabetes mellitus Atherosclerosis of coronary artery without angina pectoris Nicotine dependence Ischemic cardiomyopathy Secondary pulmonary arterial hypertension Essential (primary) hypertension Nonrheumatic aortic (valve) stenosis 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 Osteomyelitis Diabetic foot infection Bleeding disorder Ulcer of right foot with fat layer exposed COPD (chronic obstructive pulmonary disease) Hyperlipidemia DVT (deep venous thrombosis) GERD (gastroesophageal reflux disease) Home Medications ?Medication ?Instructions ?Recorded ?Last Taken ?Type atorvastatin 40 mg tablet 40 mg PO DAILY cholesterol 11/12/20 11/03/23 History ferrous sulfate 325 mg (65 mg 325 mg PO DAILY 10/29/22 11/02/23 History iron) tablet furosemide 40 mg tablet 40 mg PO DAILY #0 tabs 11/12/22 11/02/23 Rx cyclobenzaprine 10 mg tablet 10 mg PO TID PRN Muscle Pain 12/11/22 11/02/23 History insulin lispro 100 unit/mL 5 unit subcut ACHS 12/11/22 11/03/23 History subcutaneous pen (Humalog KwikPen (U-100) Insulin) pantoprazole 40 mg tablet,delayed 40 mg PO QDAY 10/04/23 11/02/23 History release aspirin 81 mg tablet,delayed 81 mg PO DAILY 10/28/23 11/02/23 History release (Adult Aspirin Regimen) doxepin 50 mg capsule 50 mg PO DAILY 10/28/23 11/02/23 History gabapentin 100 mg capsule 100 mg PO BID 10/28/23 11/02/23 History insulin glargine-yfgn 100 unit/mL 15 unit subcut QHS 10/28/23 11/03/23 History (3 mL) subcutaneous pen linagliptin 5 mg tablet (Tradjenta) 5 mg PO DAILY 10/28/23 11/03/23 History metformin 500 mg tablet 500 mg PO BID 10/28/23 11/03/23 History metoprolol succinate 25 mg 25 mg PO DAILY 10/28/23 11/03/23 History tablet,extended release 24 hr mirtazapine 7.5 mg tablet 7.5 mg PO QHS 10/28/23 11/03/23 History pziamtwm-li-hewmc 300 mcg-K 60 1 tab PO DAILY 10/28/23 11/02/23 History mcg-lycop 600 mcg-lutein 300 mcg tablet (Centrum Silver Men) cholecalciferol (vitamin D3) 25 25 mcg PO DAILY 10/31/23 11/02/23 History mcg (1,000 unit) capsule losartan 100 mg tablet 100 mg PO DAILY 10/31/23 11/03/23 History clopidogrel 75 mg tablet (Plavix) 75 mg PO DAILY #90 tabs 12/21/23 Unknown Rx warfarin 1 mg tablet 1.5 mg PO DAILY 02/24/24 Unknown History Allergy/AdvReac Type Severity Reaction Status Date / Time No Known Allergies Allergy Verified 02/24/24 15:39 Family History Mother Diabetes Heart disease Father Diabetes Surgical History History of amputation History of incision and drainage (09/22/20) History of angioplasty of peripheral vessel (01/02/10) History of lumbar laminectomy History of femoropopliteal bypass (2008) H/O coronary artery bypass surgery (05/01/20) History of mechanical aortic valve replacement History of left heart catheterization (04/23/20) Social History household members: significant other Smoking Status: Current every day smoker tobacco type: cigarettes Smoking packs per day: 1 Smoking cigarettes per day: 20.0 alcohol intake: never substance use type: does not use caffeine: No Review of Systems (Anesthesia) ROS Narrative System reviewed and no additional complaints, except as documented.
--- NOTE | 2024-02-29 12:00 | BON_PTH ---
PATIENT: RAPHAEL HADDAD LOC: [facility] U#:[id number] AGE/SX: 73/M ROOM: [facility] RE02/24/[address]: Dr. Kendrick Drummond DO : 1950 BED: 1 DIS: 03/02/2024 SPEC #: [id number] RECD: 02/29/24 14:43 STATUS: RICH REQ #: [id number] MATIAS: 02/29/24 12:[address]: Roverto Lyons DEPT: SURGICAL PATHOLOGY RECD BY: Bee Jeronimo ENTERED: 03/01/24 09:12 SP TYPE: Bone OTHR DR: MD Dr. Kendrick Barger DO Dr. Eric Turney, MD Dr. Jonathan Moss, DPM MD Dr. Giancarlo Brooks MD Dr. Robert Leininger, MD Dr. Tai Chi Kwok, MD Tissues: A - Toe, NOS B - Toe, NOS Procedures: Decalcification bone/plaque Surgery Specimen Level IV Comments: @ Ordering doctor for DEC edited from to @ by DORA at 03/01/24955 @ Ordering doctor for SUIV edited from to @ by DORA at 03/01/2456 @ Submitting doctor edited from to @ cecilio JOHN at 03/01/2456 HEADER OPERATION: Right low extremity trans metatarsal amputation PRE-OP DIAGNOSIS: Diabetic foot infection TISSUE SUBMITTED: A- 5th metatarsal bone, right foot, B- Clean margin, right foot 5th metatarsal MICROSCOPIC DIAGNOSIS A. 5th metatarsal bone, right foot, biopsy: Acute osteomyelitis. B. Right foot 5th metatarsal, clearance fragment bone, biopsy: Focal reactive and reparative change. No evidence of osteomyelitis. NATY/ 03/07/2024 MICROSCOPIC DESCRIPTION Slides are reviewed. GROSS DESCRIPTION A Received in fixative is one container labeled with the patient's name and designated 5th metatarsal bone- right foot. The specimen consists of a piece of bone measuring 2.0 x 1.0 x 1.0cm. The entire specimen is submitted in one cassette after decalcification. B. Received in fixative is one container labeled with the patient's name and designated Clean margin right foot- 5th metatarsal. The specimen consists of a piece of bone measuring 2.0 x 2.0 x 0.7cm. The entire specimen is submitted in two cassettes. LEVON/ 03/01/2024 TC:2 CPT:87600b3,19372q2
--- NOTE | 2024-02-29 12:09 | PCM.OPRPT ---
Problems Associated Problem List Diagnoses (1) Gas gangrene: (2) Osteomyelitis of right foot: (3) Non-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: (4) Tightness of right heel cord: Report of Operation Date of Procedure: 02/29/24 Pre-Operative Diagnosis: 1. Gas gangrene, right lower extremity 2. Full-thickness ulceration with exposed bone, right foot 3. Osteomyelitis, right foot 4. Tight Achilles tendon, right lower extremity Post-Operative Diagnosis: Same as preoperative diagnosis Surgery/Procedure Performed:: 1. Tendo Achilles lengthening, right lower extremity 2. Transmetatarsal amputation, right foot 3. Application of antibiotic beads, vancomycin, right foot 4. Musculocutaneous flap closure, right foot 5. Application of posterior splint, right lower extremity Description of Surgical Findings:: 1. Evidence of necrotic fifth metatarsal head. 2. After musculocutaneous flap closure there was evidence of necrotic tissue to the lateral right foot at the level of the fifth metatarsal head that was removed. All necrotic tissue was also removed at that time. 3. Successful flap closure. Surgeon: Roverto Lyons instrument mechanic: None Type of Anesthesia: Block,Regional and General Anesthesiologist: Seng Wu Special Medications: Per anesthesia Specimen's removed: 1. Fifth metatarsal bone sent to microbiology for culture and sensitivity 2. Fifth metatarsal bone sent to pathology 3. Clean margin, fifth metatarsal, sent to pathology Drains: None Estimated Blood Loss (mL): 75 mL Fluids Replaced: Per anesthesia Description of Procedure: Indications For Operation: Mr. Mathew is a 73-year-old diabetic male who was admitted to [facility] for concern of gas gangrene to the right foot. Patient underwent plain film radiographs that was concerning for gas gangrene of the right foot at the level of the fifth metatarsal. Podiatry was ultimately consulted for evaluation and surgical intervention. Patient did have vascular workup that showed evidence of moderate vascular disease to the right lower extremity. Patient was seen by vascular surgery who underwent angiogram and stenting/ballooning of the right lower extremity to allow for adequate blood flow and optimize the patient prior to surgery. Due to progression of worse necrosis of the right foot and the patient having history of hallux and second digit amputation to right lower extremity, it was necessary at this time to take the patient to the operating room to perform the above procedures to rid the patient of the continued infection and to help heal his chronic wound as well as help heal his chronic pain. The nature of the problem, anticipated procedures, postop recovery/convalences and risk/complications include but not limited to infection, wound healing complications, digital amputation, hypertrophic scarring, numbness, tingling, chronic pain, CRPS, over and under correction, recurrence of deformity, DVT and or PE and the need for further surgery have been discussed in great detail with the patient. All questions have been answered to the patient's satisfaction. There are no guarantees given as to the outcome of the procedure. Description of Procedure: Under mild sedation, the patient was brought into the operating room and placed on the operating table in supine position. Once the patient was under general anesthesia with laryngeal mask airway, the right lower extremity was blocked using approximately 20 cc0.5% Marcaine plain. Next, a well-padded thigh tourniquet was applied to the right lower extremity. Next, the right lower extremity was prepped and draped in normal aseptic manner. Next, a timeout was then undertaken verifying the correct patient, extremity, visibility of preoperative markings, availability of the equipment. The tourniquet was not inflated at this time but was placed if needed. 1. Tendo Achilles lengthening, right lower extremity Next, attention was directed to the Achilles tendon to the right lower extremity. Using a sterile skin marker and ruler markings for incisions were placed at the 5 cm, 8 cm and 11 cm sections. Percutaneous incisions using a #11 blade were made at the 5 cm beckie medially, 8 cm beckie laterally and 11 cm beckie medially, all done in Marvin sections at the level of the Achilles tendon. The right lower extremity ankle was placed through a controlled range of motion and lengthening was noted clinically as well as audibly. All 3 incisions were flushed with copious normal saline. The skin is reapproximated closed using 2-0 nylon suture in simple interrupted suture technique. 2. Transmetatarsal amputation, right foot Next, using mini C arm fluoroscopy the level of the transmetatarsal amputation was marked out under mini C arm guidance. Using a sterile skin marker a trapdoor incision was marked out encompassing the remaining digits and dorsal foot. Using a #10 blade, a full-thickness vision down the bone was carried out along the skin marking. Continued sharp dissection was carried down and around the metatarsals identifying the metatarsophalangeal joints 3, 4 and 5 which allowed for disarticulation of the lesser digits. The excess tissue was passed the back table to be discarded. It was noted at that time that the fifth metatarsal showed evidence of darkening as well as necrosis. Using a #111 blade and sagittal saw, the transmetatarsal amputation saw cuts were performed allowing for a suitable parabola to the right foot. The problem was checked clinically as well as under mini C arm guided fluoroscopy. The fifth metatarsal bone was with half going to microbiology for culture and sensitivity and the other half going to pathology for identification. An extra sample of the fifth metatarsal diaphysis was sent to pathology as a clean margin. The flap was meticulously dissected down to muscle removing all tendons. All bleeders were cauterized, ligated as well as tied off as necessary. 3. Application of antibiotic beads, vancomycin, right foot Application of vancomycin antibiotic beads were administered to the transmetatarsal amputation site per the operator prefinish's recommendation. 4. Musculocutaneous flap closure, right foot Again, continued meticulous dissection and removal of all tendons were performed. The musculocutaneous flap was repositioned and advanced from a plantar to dorsal aspect and held in place using 3-0 Monocryl in running suture technique. There was evidence of flap necrosis at the level of the fifth metatarsal head, the necrotic tissue was sharply excised down to healthy bleeding tissue. The skin was reapproximated and closed using 2-0 nylon in a combination of simple, horizontal and vertical mattress suture technique, followed by staple fixation/closure throughout the TMA site. 5. Application of posterior splint, right lower extremity Next, the right lower extremities were cleaned and patted dry. All incisions were dressed with Betadine soaked Adaptic, the deficit in the flap was dressed with Betadine soaked gauze followed by dry sterile dressing and a double layer Persaud posterior splint was donned to the right lower extremity for allowing the foot to sit at a rectus position. The patient tolerated the procedure and anesthesia well and apparent satisfactory condition and was transported to the PACU for further monitoring prior to discharge back to the floor. Vital signs stable and vascular status intact to all digits bilateral. Post Operative Plan: Weightbearing: No weightbearing to the right lower extremity. Full weightbearing to left lower extremity. Antibiotics: Per infectious disease DVT Prophylaxis: Per medicine and vascular Abreu: None Dressing: Antibiotic beads with vancomycin, Betadine soaked gauze, Betadine soaked Adaptic, dry sterile dressing double layer posterior splint at 90 degrees right lower extremity X-Rays: Post-operative films taken on the operating room. Pain Medication: Per medicine Follow-up: Patient is cleared from a podiatry perspective to discharge to SNF with PICC line which is my recommendation. Complete removal of the necrotic bone was noted at time of operation. Complete removal of the necrotic tissue at the level of the fifth metatarsal right foot was removed at time of operation as well. The patient will need continued wound care at follow-up. The patient is to follow-up with Dr. Crooks at the wound care center 1 week post discharge. Orders will be placed in the patient's discharge paperwork for continued and continuity of care. Grafts/Implants Used: ZENTICKET OsteoSet, vancomycin 1 g, right foot Complications None Admit VTE Documentation VTE Present on Admission: No VTE Mechan Device Prophylaxis: SCD's VTE Pharm Prophylaxis ordered?: Yes
[2024-02-29] MEDS: Vancomycin IV 1,000 MG/20 ML Vial 1000 MG OPERA.SITE (12:43)
[2024-02-29] MEDS: Bupivacaine Mpf 0.5% 30 ML VIAL (13:16)
--- NOTE | 2024-02-29 13:35 | PCM.POST.ANE ---
Anesthesia: Postop Eval I Current Vital Signs Temperature: 97.9 F Pulse Rate: 96 Blood Pressure: 112/60 Respiratory Rate: 22 Pulse Ox: 97 Oxygen Delivery Method: Room Air Assessment Airway patent: Yes Spontaneous unlabored respirations: Yes Mental status: Awake and Calm nausea: No Vomiting: No Anesthesia Complication: No Fluid Hydration Crystalloid volume administer (ml): 400 Total IV fluid infused: 400 Progress Note Post-operative progress note: DENIES PAIN Anesthesia document: Postop Eval 1 completed: Yes
[2024-02-29] MEDS: Clopidogrel Bisulfate 75 MG Tablet PO (14:46)
[2024-02-29] MEDS: Aspirin E.C. 81 MG Tablet PO (14:46)
[2024-02-29] MEDS: Ferrous Sulfate 325 MG Tablet PO (15:16)
[2024-02-29] MEDS: Pantoprazole Sodium 40 MG Tablet PO (15:16)
[2024-02-29 15:43] LABS: Bedside Glucose 92 mg/dL (74-106)
[2024-02-29] MEDS: DOXEPIN HCL 50 MG CAPSULE PO (15:57)
[2024-02-29] MEDS: Juven (unflavored) Packet 1 PACKET PO (16:00)
[2024-02-29] MEDS: Furosemide 40 MG Tablet PO (16:17)
[2024-02-29] MEDS: Insulin Lispro 100 UNIT/ML INSULN.PEN SC ×3 (16:17→22:25)
--- NOTE | 2024-02-29 16:43 | POSTOPAN2_ITS ---
Anesthesia Postop Eval I Sum Postop Eval Completion status Anesthesia document: Postop Eval 1 completed: Yes Anesthesia Postop Eval I Summary Anesthesia Postop Eval I Summary: Anesthesia Postop Eval I: Assessment Summary Airway patent Yes 02/29/24 13:37 MARKET RISK [email or web address] Spontaneous unlabored Yes 02/29/24 13:37 MARKET RISK MANAGER.[email or web address] respirations Mental status Awake,Calm 02/29/24 13:37 MARKET RISK MANAGER.[email or web address] nausea No 02/29/24 13:37 MARKET RISK MANAGER.[email or web address] Vomiting No 02/29/24 13:37 [facility] Anesthesia Postop Eval I: Fluid Summary Crystalloid volume administer 400 02/29/24 13:37 MARKET RISK MANAGER.[email or web address] (ml) Colloids volume administered ( ml) Blood Product volume administered (ml) Total IV fluid infused 400 02/29/24 13:37 MARKET RISK MANAGER.[email or web address] Anesthesia Postop Eval I: Summary Notes Anesthesia Complication No 02/29/24 13:37 MARKET RISK MANAGER.[email or web address] Anesthesia Complication Comment: Post-operative progress note DENIES PAIN 02/29/24 13:37 [facility] RISK MANAGER.[facility] Anesthesia: Postop Eval II Evaluation Mental status: Awake and Calm Pain Level: 0 nausea: No Vomiting: No
--- NOTE | 2024-02-29 16:43 | PCM.POSTANE2 ---
Anesthesia Postop Eval I Sum Postop Eval Completion status Anesthesia document: Postop Eval 1 completed: Yes Anesthesia Postop Eval I Summary Anesthesia Postop Eval I Summary: Anesthesia Postop Eval I: Assessment Summary Airway patent Yes 02/29/24 13:37 DETHISTLER [email or web address] Spontaneous unlabored Yes 02/29/24 13:37 DETHISTLER OPERATOR.SCHR respirations Mental status Awake,Calm 02/29/24 13:37 DETHISTLER OPERATOR.SCHR nausea No 02/29/24 13:37 DETHISTLER OPERATOR.SCHR Vomiting No 02/29/24 13:37 DETHISTLER OPERATOR.[facility] Anesthesia Postop Eval I: Fluid Summary Crystalloid volume administer 400 02/29/24 13:37 DETHISTLER OPERATOR.SCHR (ml) Colloids volume administered ( ml) Blood Product volume administered (ml) Total IV fluid infused 400 02/29/24 13:37 DETHISTLER OPERATOR.SCHR Anesthesia Postop Eval I: Summary Notes Anesthesia Complication No 02/29/24 13:37 DETHISTLER OPERATOR.SCHR Anesthesia Complication Comment: Post-operative progress note DENIES PAIN 02/29/24 13:37 DETHISTLER OPERATOR.[facility] Anesthesia: Postop Eval II Evaluation Mental status: Awake and Calm Pain Level: 0 nausea: No Vomiting: No
--- NOTE | 2024-02-29 17:18 | PN.SURG_ITS ---
Subjective Subjective Sky was seen resting in bed eating dinner. He is s/p atherectomy/DCB SFA/popliteal, mechanical thrombectomy peroneal, and angioplasty/stent peroneal yesterday and s/p R TMA by Dr. Lyons today. Reportedly he had good bleeding during surgery. He reports minimal discomfort. He has no complaints. Objective Data Objective Data Vital Signs: Vital Signs Temp Pulse Resp BP Pulse Ox O2 Del Method 97.8 F 88 16 113/58 L 99 Room Air 02/29/24 16:33 02/29/24 16:33 02/29/24 16:33 02/29/24 16:33 02/29/24 16:33 02/29/24 16:33 Oxygen Delivery Method Room Air Weight: 192 lb 0.362 oz Body Mass Index (BMI) 26.7 Intake & Output: Intake and Output for Last 24 Hours 02/27/24 02/28/24 02/29/24 23:59 23:59 23:59 Intake Total 1810 / 1810 830 / 830 465 / 465 Output Total 3225 / 3225 2000 / 2350 950 / 950 Balance -1415 / -1415 -1170 / -1520 -485 / -485 Lab / Micro Data 02/29/24 05:15 02/29/24 05:15 Labs: Laboratory Results - last 24 hr 02/28/24 16:23: Activated Clotting Time 238 H 02/28/24 17:13: Activated Clotting Time 226 H 02/28/24 21:31: POC Glucose 178 H 02/29/24 05:15: WBC 8.2, RBC 2.41 L, Hgb 7.3 L, Hct 22.6 L, MCV 93.8, MCH 30.3, MCHC 32.3, RDW Std Deviation 45.7 H, RDW Coeff of Estrada 13.3, Plt Count 341, MPV 9.4, Immature Gran % (Auto) 0.600, Neut % (Auto) 77.5 H, Lymph % (Auto) 11.0 L, [place] % (Auto) 8.8, Eos % (Auto) 1.6, Baso % (Auto) 0.5, Absolute Neuts (auto) 6.4, Absolute Lymphs (auto) 0.90, Nucleated RBC % 0, PT 26.5 H, INR 2.5, Sodium 138, Potassium 3.4 L, Chloride 108 H, Carbon Dioxide 24.0, Anion Gap 6, BUN 15, Creatinine 0.86, Estim Creat Clear Calc 83.91, Est GFR (MDRD) Af Amer 113, Est GFR (MDRD) Non-Af 93, BUN/Creatinine Ratio 17.5, Glucose 111 H, Calcium 8.3 L 02/29/24 06:32: POC Glucose 99 02/29/24 08:00: Vancomycin Trough 18.8 H 02/29/24 08:17: POC Glucose 93 02/29/24 15:23: POC Glucose 92 Micro: Microbiology 02/25/24 01:52 Wound - Right Foot Gram Stain - Final 02/25/24 01:52 Wound - Right Foot Wound Culture - Final Meth. resistant Staph. aureus Coag Negative Staph Coag Negative Staph#2 Morganella morganii sp morgani Klebsiella oxytoca Corynebacterium amycolatum 02/25/24 12:56 Wound - Right Foot Gram Stain - Final 02/25/24 12:56 Wound - Right Foot Wound Culture - Final Proteus mirabilis Morganella morganii sp morgani Klebsiella pneumoniae sp pneum Meth. resistant Staph. aureus 02/25/24 12:56 Wound - Right Foot Anaerobic Culture - Final Anaerobic cocci 02/24/24 17:00 Blood Culture (Wb) - Anticubital Right Blood Culture - Preliminary No growth in 48 hours. Radiography Diagnostic Testing: Radiology Impression Foot X-Ray 02/29/24 11:00 IMPRESSION: Intraoperative exam as described above. Electronically Signed: Chicho Lake MD at 15:08 EDT , Physical Exam Const alert, oriented x3, no apparent distress and healthy appearing General Appearance: cooperative; Negative for combative or lethargic Orientation / Consciousness: awake Exam Limitations: no limitations HEENT Head and Scalp: normocephalic and atraumatic Eyes EOMs intact bilaterally General Eye: normal appearance of both eyes Neck full ROM, no lymphadenopathy and thyroid normal General: trachea midline; Negative for lymphadenopathy or tenderness Thyroid: thyroid normal Resp normal respiratory effort and no use of accessory muscles Effort and Inspection: Negative for labored, stridor or audible wheezes Cardio regular rate and regular rhythm Peripheral Pulses: brachial pulses present, radial pulses present, femoral pulses present, popliteal pulses present and posterior tibial pulses present left; Negative for dorsalis pedis pulses present Back/Spine Cervical Spine: cervical ROM normal Extremity full ROM, normal capillary refill and no clubbing, cyanosis or edema Skin Skin Narrative: right foot postoperative dressing C/D/I Neuro oriented x3, CN's II-XII intact bilaterally, no focal motor deficits and no sensory deficits noted Psych thought process normal, cooperative, affect normal, speech normal and activity/motor behavior normal Assessment & Plan Assessment/Plan (1) Atherosclerosis of [place] arteries of right leg with ulceration of other part of foot: PLAN: He is s/p atherectomy/DCB SFA/popliteal, mechanical thrombectomy peroneal, and angioplasty/stent peroneal yesterday and s/p R TMA by Dr. Lyons today. Will continue ASA, Plavix, and Coumadin as tolerated; planning for 1 year of this regimen. Will plan to see him in the office in 2-4 weeks after discharge, sooner as needed. Will continue to follow while he is inpatient. Charges/Coding Visit Charges Inpatient E&M: 13361 Subs Hosp L2
[2024-02-29] MEDS: Acetaminophen 325 MG Tablet 650 MG PO (19:51)
[2024-02-29] MEDS: Gabapentin 100 MG Capsule PO (22:15)
[2024-02-29] MEDS: Atorvastatin Calcium 40 MG Tablet PO (22:15)
[2024-02-29] MEDS: Mirtazapine 15 MG Tablet 7.5 MG PO (22:16)
[2024-02-29] MEDS: Insulin Glargine-YFGN 100 UNIT/ML Pen 15 UNIT SC (22:27)
[2024-02-29 23:04] LABS: Bedside Glucose 187 mg/dL (74-106)
[2024-03-01] VITALS (13 sets, daily range): BP systolic 83–123; BP diastolic 41–61; PULSE 80–97; RESP 16–18; TEMP 36.2–36.9; O2SAT 96–100; BMI 27.1
[2024-03-01] MEDS: Potassium Chloride Oral Tablet 20 MEQ 60 MEQ PO (01:42)
[2024-03-01] MEDS: Magnesium Sulfate 1 GM in Dextrose 5%-Water (100mL Bag) 100 ML IV (01:42)
[2024-03-01] MEDS: Acetaminophen 325 MG Tablet 650 MG PO (01:48)
[2024-03-01 05:48] LABS: Absolute Lymphocyte Count 1.12 X10^3/uL (0.83-4.51); Absolute Neutrophil Count 3.8 X10^3/uL (2.0-7.7); Basophil# 0.02 X10^3/uL; Basophil% 0.3 % (0-1); Eosinophil# 0.32 X10^3/uL; Eosinophils% 5.4 % (0-5); Hematocrit 19.9 % (40-54); Hemoglobin 6.2 g/dL (13.0-16.5); Lymphocyte # 1.12 X10^3/ul (0.83-4.51); Lymphocyte % 18.8 % (19-41); Mean Corp Hgb Conc 31.2 g/dL (32-36); Mean Corpuscular Hgb 30.1 pg (27.0-32.0); Mean Corpuscular Volume 96.6 fL (80-94); Mean Platelet Vol. 9.6 fl (6.2-12.0); Monocyte# 0.66 X10^3/uL; Monocyte% 11.1 % (0-10); NRBC Flagged by Analyzer 0 % (0-5); Neutrophil # 3.77 X10^3/uL (2.7-7.7); Neutrophil % 63.2 % (47-70); Platelet Count 277 K/mm3 (150-450); RBC Distribution Width CV 13.5 % (11.6-14.6); RBC Distribution Width SD 47.8 fl (35.1-43.9); Red Blood Count 2.06 M/mm3 (4.6-6.2)
[2024-03-01] MEDS: Clindamycin 600 MG/50 ML BAG 100 MG IV (05:48)
[2024-03-01] MEDS: Piperacil/Tazobactam 3.375 GM in 0.9% Normal Saline (50mL MB+) 50 ML IV (05:48)
[2024-03-01 06:06] LABS: International Normalized Ratio 2.4; Prothrombin Time (Protime)PT. 26.4 SECONDS (11.7-14.9)
[2024-03-01 06:18] LABS: Anion Gap 5 (5-15); BUN 32 mg/dL (7-18); BUN/Creat Ratio 27.1 RATIO (10-20); Calcium,Total 8.1 mg/dL (8.5-10.1); Chloride 107 mmol/L (98-107); Creatinine, Serum 1.18 mg/dL (0.70-1.30); EST Glomerular Filtration Rate 65 mL/min (>60); Est Glom Filt Rate - Afr Amer 78 mL/min (>60); Estimated Creatinine Clearance 61.15 ml/min; Glucose 178 mg/dL (74-106); Sodium Level 136 mmol/L (136-145)
[2024-03-01] MEDS: Insulin Lispro 100 UNIT/ML INSULN.PEN SC ×6 (06:32→20:56)
[2024-03-01 07:03] LABS: Bedside Glucose 143 mg/dL (74-106)
[2024-03-01] MEDS: Budesonide Respules 0.5 MG/2 ML AMPUL.NEB. INHALATION ×2 (07:16→19:38)
--- NOTE | 2024-03-01 07:27 | PN.HOSP_ITS ---
Reason for Visit Reason for Visit: Diagnoses Gas gangrene (02/24/24) Type 2 diabetes mellitus with other skin complications (02/24/24) Type 2 diabetes mellitus without complications (02/24/24) Atherosclerosis of [place] arteries of right leg with ulceration of other part of foot (02/24/24) Peripheral vascular disease, unspecified (02/24/24) Cellulitis of right lower limb (02/24/24) Local infection of the skin and subcutaneous tissue, unspecified (02/24/24) Non-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 (02/24/24) Short Achilles tendon (acquired), right ankle (02/24/24) Subacute osteomyelitis, right ankle and foot (02/24/24) Abnormal coagulation profile (02/24/24) Encounter for preprocedural cardiovascular examination (02/24/24) Subjective Subjective Feels ok. No events overnight. Objective Data Objective Data Vital Signs: Vital Signs Temp Pulse Resp BP Pulse Ox O2 Del Method 36.4 C L 84 18 101/55 L 96 Room Air 03/01/24 04:00 03/01/24 04:00 03/01/24 04:00 03/01/24 04:00 03/01/24 04:00 03/01/24 04:00 Oxygen Delivery Method Room Air Weight: 88.3 kg Body Mass Index (BMI) 27.1 Intake & Output: Intake and Output for Last 24 Hours 02/28/24 02/29/24 03/01/24 23:59 23:59 23:59 Intake Total 830 / 830 1330 / 1630 846.25 / 846.25 Output Total 2000 / 2350 1350 / 1350 175 / 175 Balance -1170 / -1520 -20 / 280 671.25 / 671.25 Lab / Micro Data 03/01/24 05:20 03/01/24 05:20 Labs: Laboratory Results - last 24 hr 02/29/24 08:00: Vancomycin Trough 18.8 H 02/29/24 08:17: POC Glucose 93 02/29/24 15:23: POC Glucose 92 02/29/24 22:13: POC Glucose 187 H 03/01/24 05:20: WBC 6.0, RBC 2.06 L, Hgb 6.2 L, Hct 19.9 L, MCV 96.6 H, MCH 30.1, MCHC 31.2 L, RDW Std Deviation 47.8 H, RDW Coeff of Estrada 13.5, Plt Count 277, MPV 9.6, Immature Gran % (Auto) 1.200 H, Neut % (Auto) 63.2, Lymph % (Auto) 18.8 L, [place] % (Auto) 11.1 H, Eos % (Auto) 5.4 H, Baso % (Auto) 0.3, Absolute Neuts (auto) 3.8, Absolute Lymphs (auto) 1.12, Nucleated RBC % 0, PT 26.4 H, INR 2.4, Sodium 136, Potassium 4.0, Chloride 107, Carbon Dioxide 24.0, Anion Gap 5, BUN 32 H, Creatinine 1.18, Estim Creat Clear Calc 61.15, Est GFR (MDRD) Af Amer 78, Est GFR (MDRD) Non-Af 65, BUN/Creatinine Ratio 27.1 H, Glucose 178 H, C alcium 8.1 L 03/01/24 06:29: POC Glucose 143 H Micro: Microbiology 02/24/24 17:00 Blood Culture (Wb) - Anticubital Right Blood Culture - Final No growth in 5 days. 02/25/24 01:52 Wound - Right Foot Gram Stain - Final 02/25/24 01:52 Wound - Right Foot Wound Culture - Final Meth. resistant Staph. aureus Coag Negative Staph Coag Negative Staph#2 Morganella morganii sp morgani Klebsiella oxytoca Corynebacterium amycolatum 02/25/24 12:56 Wound - Right Foot Gram Stain - Final 02/25/24 12:56 Wound - Right Foot Wound Culture - Final Proteus mirabilis Morganella morganii sp morgani Klebsiella pneumoniae sp pneum Meth. resistant Staph. aureus 02/25/24 12:56 Wound - Right Foot Anaerobic Culture - Final Anaerobic cocci Radiography Diagnostic Testing: Radiology Impression Foot X-Ray 02/29/24 11:00 IMPRESSION: Intraoperative exam as described above. Electronically Signed: Chicho Lake MD at 15:08 EDT , Physical Exam Const alert and no apparent distress HEENT head/scalp atraumatic and moist oral mucous membranes Resp normal respiratory effort, no retractions, no use of accessory muscles and clear to auscultation bilaterally Cardio regular rate, regular rhythm, S1 normal heart sound and S2 normal heart sound GI normal to inspection, nondistended, normoactive bowel sounds, soft to palpation, non-tender and non-distended Extremity Extremity Narrative: right foot casted, did not remove. surgically removed left 2nd toe. Neuro Sensorium / Orientation: awake and alert Assessment & Plan Assessment/Plan (1) Diabetic foot infection: (2) Supratherapeutic INR: PLAN: Plan 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 * Concern for gas gangrene * Vancomycin and amp/SB * aortogram, right lower extremity runoff IVUS right common femoral, SFA/popliteal, TP trunk, peroneal artery, atherectomy/DCB SFA/popliteal, mechanical thrombectomy peroneal, angioplasty/stent peroneal * 02/28: Tendo Achilles lengthening, right lower extremity; Transmetatarsal amputation, right foot; Application of antibiotic beads, vancomycin, right foot; Musculocutaneous flap closure, right foot; Application of posterior splint, right lower extremity * Cultures are polymicrobial with Proteus, Morganella, Klebsiella, MRSA, will consult ID * ID following Anemia * Acute on chronic. * Baseline Hg 7.3. Down to 6.2 today. * Transfuse 1 unit PRBC and monitor Chronic conditions: * CAD status post CABG/PAD status post femoral-popliteal bypass/essential HTN/HLD/aortic valve disease/chronic systolic CHF: Has [place] mechanical valve, will need to be bridged if he needs to be reversed completely for surgery. INR was supratherapeutic, will hold Coumadin but not reverse in anticipation of surgery. Echo 10/30/2022 with an EF of 40 to 45% and normal AV bioprosthetic valve. Continue with aspirin and Plavix. Blood pressure stable. Can continue with his home blood pressure medications, will monitor and make adjustments as necessary * DM2 with neuropathy: Continue to hold his home medications. Sliding scale insulin. Accu-Cheks ACHS. Will monitor make adjustments as necessary * Iron deficiency anemia: Continue with his oral iron replacement * Anxiety/depression: Stable. Continue with his home medications * Chronic COPD: Stable. Continue with his home inhalers. * GERD: Stable. Continue with PPI VTE prophylaxis: not indicated as already anticoagulated. Disposition: TBD. Ensuring stability on Hg, pt may be ready for DC as soon as 03/02. Charges/Coding Visit Charges Inpatient E&M: 32815 Subs Hosp L2
[2024-03-01] MEDS: Vancomycin HCl 750 MG in 0.9% Normal Saline (250mL Bag) 250 ML 250 MG IV (08:15)
[2024-03-01] MEDS: Clopidogrel Bisulfate 75 MG Tablet PO (09:20)
[2024-03-01] MEDS: Aspirin E.C. 81 MG Tablet PO (09:20)
[2024-03-01] MEDS: DOXEPIN HCL 50 MG CAPSULE PO (09:20)
[2024-03-01] MEDS: Gabapentin 100 MG Capsule PO ×2 (09:20→21:03)
[2024-03-01] MEDS: Metoprolol(XL)Succ 25 MG Tablet PO (09:20)
[2024-03-01] MEDS: Pantoprazole Sodium 40 MG Tablet PO (09:20)
[2024-03-01] MEDS: Senna/Docusate Sodium 1 Tablet 2 TABLET PO (09:20)
[2024-03-01] MEDS: Losartan Potassium 100 MG Tablet PO (09:20)
[2024-03-01] MEDS: Juven (unflavored) Packet 1 PACKET PO (09:21)
[2024-03-01] MEDS: Ferrous Sulfate 325 MG Tablet PO (09:21)
[2024-03-01] MEDS: Furosemide 40 MG Tablet PO (09:24)
--- NOTE | 2024-03-01 10:19 | PCM.PN.ID ---
Physical Exam Narrative Feeling ok this AM, no fever, no n/v/d. Const alert and no apparent distress General Appearance: cooperative Resp normal air movement and clear to auscultation bilaterally Cardio regular rate and regular rhythm GI soft to palpation, non-tender and non-distended Skin no rashes or lesions noted Skin Narrative: R foot wrappe s/p TMA ID ID: Route of nutrition/ use of supplements: [] Nutritional Intake: [] IV Site: [] Abreu Catheter: [] Assessment & Plan Assessment/Plan (1) Osteomyelitis of right foot: QUALIFIERS: Osteomyelitis type: subacute Qualified Code(s): M86.271 - Subacute osteomyelitis, right ankle and foot PLAN: Wound cultures with MRSA, proteus, morganella, klebs x2, CoNS x2, anaerobes. On vanc/zosyn. Now s/p TMA 02/29/[address] Lyons. Will stop clinda today. Narrow to vanc/unasyn, order picc, wrote for 6 weeks vanc/unasyn, stop date 04/11/24 with weekly labs and ID followup in 2-3 weeks. Will follow (2) Gas gangrene: (3) Diabetes mellitus: (4) PVD (peripheral vascular disease):
--- NOTE | 2024-03-01 10:36 | CASEMGMT ---
SW spoke with patient. Introduced self and role at [facility]. Patient was agreeable to SW making a referral to [facility]. Await PT/OT from today since it would be his first therapy session post surgery and then referral will be sent. Ashlyn Parkinson MSW ARMANDO
[2024-03-01 11:59] LABS: Bedside Glucose 167 mg/dL (74-106)
[2024-03-01] MEDS: Polyethylene Glycol 3350 17 GM PACKET PO (12:17)
--- NOTE | 2024-03-01 12:24 | PCM.PN.SRG ---
Subjective Subjective Mr. Mathew is a 73-year-old diabetic male seen at bedside today for follow-up and evaluation status post transmetatarsal amputation, musculocutaneous flap closure, tendo Achilles lengthening, placement of antibiotic beads with vancomycin, and application of posterior splint to the right lower extremity. DOS #02/29/2024. Patient is recovering well. He got 1 unit of blood today. Denies any pain. Has been compliant with nonweightbearing to the right foot. SNF placement pending. Denies trauma. Denies constitutional symptoms. No other pedal complaints at this time. Objective Data Objective Data Vital Signs: Vital Signs Temp Pulse Resp BP Pulse Ox O2 Del Method 97.5 F L 80 18 106/55 L 100 Room Air 03/01/24 12:15 03/01/24 12:15 03/01/24 12:15 03/01/24 12:15 03/01/24 12:15 03/01/24 12:15 Oxygen Delivery Method Room Air Weight: 88.3 kg Body Mass Index (BMI) 27.1 Intake & Output: Intake and Output for Last 24 Hours 02/28/24 02/29/24 03/01/24 23:59 23:59 23:59 Intake Total 830 / 830 1330 / 1630 1212.25 / 1212.25 Output Total 2000 / 2350 1350 / 1350 175 / 175 Balance -1170 / -1520 -20 / 280 1037.25 / 1037.25 Lab / Micro Data 03/01/24 05:20 03/01/24 05:20 Labs: Laboratory Results - last 24 hr 02/29/24 15:23: POC Glucose 92 02/29/24 22:13: POC Glucose 187 H 03/01/24 05:20: WBC 6.0, RBC 2.06 L, Hgb 6.2 L, Hct 19.9 L, MCV 96.6 H, MCH 30.1, MCHC 31.2 L, RDW Std Deviation 47.8 H, RDW Coeff of Estrada 13.5, Plt Count 277, MPV 9.6, Immature Gran % (Auto) 1.200 H, Neut % (Auto) 63.2, Lymph % (Auto) 18.8 L, [place] % (Auto) 11.1 H, Eos % (Auto) 5.4 H, Baso % (Auto) 0.3, Absolute Neuts (auto) 3.8, Absolute Lymphs (auto) 1.12, Nucleated RBC % 0, PT 26.4 H, INR 2.4, Sodium 136, Potassium 4.0, Chloride 107, Carbon Dioxide 24.0, Anion Gap 5, BUN 32 H, Creatinine 1.18, Estim Creat Clear Calc 61.15, Est GFR (MDRD) Af Amer 78, Est GFR (MDRD) Non-Af 65, BUN/Creatinine Ratio 27.1 H, Glucose 178 H, Calcium 8.1 L 03/01/24 06:29: POC Glucose 143 H 03/01/24 07:48: Blood Type B POSITIVE, Antibody Screen NEGATIVE, Crossmatch See Detail 03/01/24 11:22: POC Glucose 167 H Micro: Microbiology 02/29/24 12:39 Bone - 5th Toe Wound Culture - Preliminary Gram negative jacky 02/24/24 17:00 Blood Culture (Wb) - Anticubital Right Blood Culture - Final No growth in 5 days. 02/25/24 01:52 Wound - Right Foot Gram Stain - Final 02/25/24 01:52 Wound - Right Foot Wound Culture - Final Meth. resistant Staph. aureus Coag Negative Staph Coag Negative Staph#2 Morganella morganii sp morgani Klebsiella oxytoca Corynebacterium amycolatum 02/25/24 12:56 Wound - Right Foot Gram Stain - Final 02/25/24 12:56 Wound - Right Foot Wound Culture - Final Proteus mirabilis Morganella morganii sp morgani Klebsiella pneumoniae sp pneum Meth. resistant Staph. aureus 02/25/24 12:56 Wound - Right Foot Anaerobic Culture - Final Anaerobic cocci Radiography Diagnostic Testing: Radiology Impression Foot X-Ray 02/29/24 11:00 IMPRESSION: Intraoperative exam as described above. Electronically Signed: [place] MD at 15:08 EDT , Physical Exam Narrative Neurovascular status is unchanged. Nonpitting edema appreciated to the proximal right posterior splint. No evidence of strikethrough. No pain on palpation to the right flap. No pain with calf pressure. Const oriented x3 and no apparent distress Assessment & Plan Assessment/Plan (1) Gas gangrene: PLAN: Patient was examined and evaluated. All findings were discussed with the patient. All questions were answered to the patient's satisfaction. Patient is status post right lower extremity transmetatarsal amputation, musculocutaneous flap closure, tendo Achilles lengthening, application of antibiotic beads with application of posterior splint to the right lower extremity. DOS: 02/29/2024. Recovering well no pain. Please leave right lower extremity posterior splint clean dry and intact. Do not remove. I will change it the patient is here on Tuesday. Bone cultures: Gm(-) Jacky Pathology: Pending Pathology Clean Margin: Pending Medicine: On board, medical management, 1 unit of blood given. Infectious disease, on board, PICC line antibiotics, planning for 6 weeks of vancomycin and Unasyn. Stop date will be 04/11/2024 with weekly labs. Vascular surgery: s/p atherectomy/DCB SFA/popliteal, mechanical thrombectomy peroneal, and angioplasty/stent peroneal yesterday Mr. Coronel is cleared by podiatry to discharge to SNF when pre-CERT approved and cleared by medicine and infectious disease team. Patient will follow-up with Dr. Lyons at the wound care center next Tuesday for evaluation of the right lower extremity. Podiatry will continue to follow while the patient is in house. If the patient is still here on Tuesday we will change the posterior splint the afternoon. No need for dressing changes at this time. Please reach out to Dr. Lyons with any questions or concerns. (2) Non-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: (3) Osteomyelitis of right foot: QUALIFIERS: Osteomyelitis type: subacute Qualified Code(s): M86.271 - Subacute osteomyelitis, right ankle and foot (4) Cellulitis: QUALIFIERS: Site of cellulitis: extremity Site of cellulitis of extremity: lower extremity Laterality: right Qualified Code(s): L03.115 - Cellulitis of right lower limb
--- NOTE | 2024-03-01 12:47 | PRO.PCM_ITS ---
Procedure Report Date of Procedure: 03/01/24 Assessment & Plan Assessment/Plan (1) Osteomyelitis of right foot: QUALIFIERS: Osteomyelitis type: subacute Qualified Code(s): M86.271 - Subacute osteomyelitis, right ankle and foot Procedures Radiology Radiology Access Procedures: PICC Procedure Time Out Time Out Informed consent given: Yes Consent signed: Yes Time out checklist: patient, procedure, site marked/identified, positioning of patient, supplies available and allergies confirmed Time out verified: Yes Time out date: 03/01/24 Time out time: 11:30 PICC Line Consent Screening tool completed:: Yes Consent obtained:: Yes Consent given by (patient or responsible republican):: PATIENT Line successful (if no, document why in comments):: Yes Insertion Reason for Insertion: Senior Living Medication Date of Insertion: 03/01/24 Ok to use: Yes Type of PICC inserted: Dual Power PICC PICC Lot #: [id number] PICC Reference #: [id number] Microintroducer Used: Yes (in kit) Ultrasound/Equipment Used: Probe Cover Kit Trimmed Length (cm): 44 Insertion Length (cm): 44 Exposed Length (cm): 0 Tip Placement: Caval Atrial Junction Placement Confirmation: 3CG Insertion Vein: Right Basilic Insertion Attempts: 1 Local Anesthesia Used: Lidocaine 1% (in kit) Dressing Applied: Statlock and Tegaderm CHG Arm Measurement above site (in cm): 31 Patient Tolerated Procedure: Well Threading Difficulties: No Comments Comment: Patient identity was verified with two patient identifiers. Informed consent was obtained and time-out was completed. Hands were sanitized. The patient was positioned supine with right arm at 90 degrees. The patient's upper arm vasculature was assessed using ultrasound. Patency of the right basilic vein was confirmed and the vein was externally marked. An external measurement was obtained of 44 cm. External leads were applied to the patient's right upper chest and laterally and inferior of the umbilicus on the mid axillary line. Cap, mask, and prep gloves were donned. The underdrape was placed under the patient's arm. The site was prepped with chlorhexidine, and tourniquet was loosely applied. Prep gloves were discarded, and hands were sanitized. The sterile kit was opened with additional supplies dropped in. Sterile gown and gloves were donned, and the patient was draped. The sterile kit was assembled with needle, introducer, needless connectors, and each catheter lumen flushed with sterile normal saline. The marked site of insertion was anesthetized with 1% lidocaine from the kit. Patient tolerated well. The right basilic vein was then accessed using ultrasound guidance and guidewire was inserted to safety beckie. The tourniquet was released. The access needle was removed while securing the guidewire in place. The site was again anesthetized with 1% lidocaine, prior to insertion of introducer sheath and dilator. Patient tolerated the insertion well. The catheter was trimmed to a length of 44 cm. Using 3CG guidance, the catheter was then inserted through the introducer sheath, slowly. There was no resistance on insertion. The catheter followed the expected course of the vessel using 3CG tracking. Maximal p-wave, without deflection, confirming placement in the cavoatrial junction, was obtained at an insertion length of 44 cm, leaving 0 cm external. The introducer sheath was retracted and peeled away, incrementally, while keeping the catheter secured. The stylet was removed. A flushed needleless connector was attached to each catheter lumen. Aspiration of the lumen was performed to remove any air and confirm blood return. Blood return was verified and each lumen was flushed with 10 ml of sterile normal saline in a pulsatile fashion. The each lumen was clamped with the last pulsed flush. Total sterile flushes used for the insertion was (7) 10 ml syringes, (2) from the kit. Finally, the insertion site was cleaned with chlorhexidine, and the catheter was secured using a StatLock. The site was covered with a Tegaderm CHG Dressing and disinfecting caps were applied. Baseline arm circumference was obtained at the insertion site and measured 31 cm. The patient was provided with a patient education handout on PICC line care of infection prevention, heavy lifting restriction, maintaining mobility, and watching for any signs of infection. The primary nurse is aware that the PICC line is ready for use.
[2024-03-01] MEDS: Ampicillin/Sulbactam 3 GM in 0.9% Normal Saline (100mL MB+) 100 ML IV ×2 (13:45→20:58)
--- NOTE | 2024-03-01 14:23 | CASEMGMT ---
Discharge Planning Referral sent to [facility]. Lizabeth Church DC Planning Asst.
[2024-03-01 16:37] LABS: Bedside Glucose 142 mg/dL (74-106)
[2024-03-01] MEDS: Insulin Glargine-YFGN 100 UNIT/ML Pen 15 UNIT SC (20:56)
[2024-03-01] MEDS: Mirtazapine 15 MG Tablet 7.5 MG PO (21:02)
[2024-03-01] MEDS: Atorvastatin Calcium 40 MG Tablet PO (21:02)
[2024-03-01 21:07] LABS: Vancomycin, Trough Level 22.3 ug/mL (5.0-15.0)
--- NOTE | 2024-03-01 21:17 | PCM.RX.CS ---
Consult Antibiotic Management Pharmacy has been consulted to manage selected antibiotic: Vancomycin Type of Intervention Type of Consult: Follow-up Labs Labs: Sodium 136 mmol/L (136-145) 03/01/24 05:20 Potassium 4.0 mmol/L (3.5-5.1) 03/01/24 05:20 Chloride 107 mmol/L (98-107) 03/01/24 05:20 Carbon Dioxide 24.0 mmol/L (21.0-32.0) 03/01/24 05:20 Anion Gap 5 (5-15) 03/01/24 05:20 BUN 32 mg/dL (7-18) H 03/01/24 05:20 Creatinine 1.18 mg/dL (0.70-1.30) 03/01/24 05:20 Est GFR (MDRD) Af Amer 78 mL/min (>60) 03/01/24 05:20 Est GFR (MDRD) Non-Af 65 mL/min (>60) 03/01/24 05:20 BUN/Creatinine Ratio 27.1 RATIO (10-20) H 03/01/24 05:20 Glucose 178 mg/dL (74-106) H 03/01/24 05:20 Vancomycin Trough 22.3 ug/mL (5.0-15.0) H 03/01/24 20:30 Random Vancomycin 16.2 ug/mL (0.0-15.0) H 02/28/24 05:50 Microbiology Microbiology: Microbiology 02/29/24 12:39 Bone - 5th Toe Gram Stain - Final 02/29/24 12:39 Bone - 5th Toe Wound Culture - Preliminary Gram negative gala 02/24/24 17:00 Blood Culture (Wb) - Anticubital Right Blood Culture - Final No growth in 5 days. 02/25/24 01:52 Wound - Right Foot Gram Stain - Final 02/25/24 01:52 Wound - Right Foot Wound Culture - Final Meth. resistant Staph. aureus Coag Negative Staph Coag Negative Staph#2 Morganella morganii sp morgani Klebsiella oxytoca Corynebacterium amycolatum 02/25/24 12:56 Wound - Right Foot Gram Stain - Final 02/25/24 12:56 Wound - Right Foot Wound Culture - Final Proteus mirabilis Morganella morganii sp morgani Klebsiella pneumoniae sp pneum Meth. resistant Staph. aureus 02/25/24 12:56 Wound - Right Foot Anaerobic Culture - Final Anaerobic cocci Dosing Weight Weight used for dosin.3 kg Estimated Creatinine Clearance Estimated Creatinine Clearance: 61 Goal Trough Goal Trough: 15-20 mcg/mL Pharmacy Plan for Drug Dosing Pharmacy Plan for Drug Dosing: Vancomycin trough level, drawn 12.25hrs post-dose, was high at 22.3. This accompanies a rise in SCr (0.86 to 1.18). Current vanco dosing will be held, and a random level will be drawn in 12 hours to determine further dosing. Pharmacy Service will continue to monitor and adjust dosing as required. Follow-Up Labs Follow-Up Labs: Trough: Vancomycin (random) Date/Time Labs Ordered Labs to be done on [date and time ordered]: 03/02/24 @0830 (random)
[2024-03-01 21:26] LABS: Bedside Glucose 194 mg/dL (74-106)
[2024-03-02] VITALS (7 sets, daily range): BP systolic 117–131; BP diastolic 53–60; PULSE 75–87; RESP 18; TEMP 36.2–36.9; O2SAT 97–100; BMI 27.1
[2024-03-02 05:24] LABS: Absolute Lymphocyte Count 1.11 X10^3/uL (0.83-4.51); Absolute Neutrophil Count 5.9 X10^3/uL (2.0-7.7); Basophil# 0.02 X10^3/uL; Basophil% 0.2 % (0-1); Eosinophil# 0.27 X10^3/uL; Eosinophils% 3.3 % (0-5); Hematocrit 23.1 % (40-54); Hemoglobin 7.4 g/dL (13.0-16.5); Lymphocyte # 1.11 X10^3/ul (0.83-4.51); Lymphocyte % 13.7 % (19-41); Mean Corpuscular Hgb 30.3 pg (27.0-32.0); Mean Corpuscular Volume 94.7 fL (80-94); Mean Platelet Vol. 9.6 fl (6.2-12.0); Monocyte# 0.73 X10^3/uL; NRBC Flagged by Analyzer 0 % (0-5); Neutrophil % 73.2 % (47-70); Platelet Count 305 K/mm3 (150-450); RBC Distribution Width CV 14.5 % (11.6-14.6); RBC Distribution Width SD 50.2 fl (35.1-43.9); Red Blood Count 2.44 M/mm3 (4.6-6.2); White Blood Count 8.1 K/mm3 (4.4-11.0)
[2024-03-02] MEDS: Ampicillin/Sulbactam 3 GM in 0.9% Normal Saline (100mL MB+) 100 ML IV ×2 (05:24→13:08)
[2024-03-02 05:33] LABS: International Normalized Ratio 1.9; Prothrombin Time (Protime)PT. 21.3 SECONDS (11.7-14.9)
[2024-03-02 05:50] LABS: Anion Gap 4 (5-15); BUN 33 mg/dL (7-18); BUN/Creat Ratio 36.3 RATIO (10-20); Calcium,Total 8.4 mg/dL (8.5-10.1); Chloride 109 mmol/L (98-107); Creatinine, Serum 0.91 mg/dL (0.70-1.30); EST Glomerular Filtration Rate 87 mL/min (>60); Est Glom Filt Rate - Afr Amer 106 mL/min (>60); Glucose 133 mg/dL (74-106); Potassium 4.4 mmol/L (3.5-5.1); Sodium Level 137 mmol/L (136-145)
[2024-03-02] MEDS: Budesonide Respules 0.5 MG/2 ML AMPUL.NEB. INHALATION (07:06)
--- NOTE | 2024-03-02 07:35 | CASEMGMT ---
SW received a message in [facility] from [facility] yesterday 03-01-24 that patient has been accepted and they will start pre-cert. Plan: d/c to [facility] pending insurance approval. Ashlyn ROBERTS
--- NOTE | 2024-03-02 08:05 | PCM.PN.HOSP ---
Reason for Visit Reason for Visit: Diagnoses Gas gangrene (02/24/24) Type 2 diabetes mellitus with other skin complications (02/24/24) Type 2 diabetes mellitus without complications (02/24/24) Atherosclerosis of [place] arteries of right leg with ulceration of other part of foot (02/24/24) Peripheral vascular disease, unspecified (02/24/24) Cellulitis of right lower limb (02/24/24) Local infection of the skin and subcutaneous tissue, unspecified (02/24/24) Non-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 (02/24/24) Short Achilles tendon (acquired), right ankle (02/24/24) Subacute osteomyelitis, right ankle and foot (02/24/24) Abnormal coagulation profile (02/24/24) Encounter for preprocedural cardiovascular examination (02/24/24) Subjective Subjective No new events. PICC placed 03/01 Objective Data Objective Data Vital Signs: Vital Signs Temp Pulse Resp BP Pulse Ox O2 Del Method 36.8 C 75 18 120/60 97 Room Air 03/02/24 03:05 03/02/24 07:08 03/02/24 03:05 03/02/24 03:05 03/02/24 03:05 03/02/24 07:49 Oxygen Delivery Method Room Air Weight: 88.2 kg Body Mass Index (BMI) 27.1 Intake & Output: Intake and Output for Last 24 Hours 02/29/24 03/01/24 03/02/24 23:59 23:59 23:59 Intake Total 1330 / 1630 3116.25 / 3116.25 452 / 452 Output Total 1350 / 1350 1575 / 1575 700 / 700 Balance -20 / 280 1541.25 / 1541.25 -248 / -248 Lab / Micro Data 03/02/24 05:10 03/02/24 05:10 Labs: Laboratory Results - last 24 hr 03/01/24 07:48: Blood Type B POSITIVE, Antibody Screen NEGATIVE, Crossmatch See Detail 03/01/24 11:22: POC Glucose 167 H 03/01/24 16:15: POC Glucose 142 H 03/01/24 20:30: Vancomycin Trough 22.3 H 03/01/24 20:51: POC Glucose 194 H 03/02/24 05:10: WBC 8.1, RBC 2.44 L, Hgb 7.4 L, Hct 23.1 L, MCV 94.7 H, MCH 30.3, MCHC 32.0, RDW Std Deviation 50.2 H, RDW Coeff of Estrada 14.5, Plt Count 305, MPV 9.6, Immature Gran % (Auto) 0.600, Neut % (Auto) 73.2 H, Lymph % (Auto) 13.7 L, [place] % (Auto) 9.0, Eos % (Auto) 3.3, Baso % (Auto) 0.2, Absolute Neuts (auto) 5.9, Absolute Lymphs (auto) 1.11, Nucleated RBC % 0, PT 21.3 H, INR 1.9, Sodium 137, Potassium 4.4, Chloride 109 H, Carbon Dioxide 24.0, Anion Gap 4 L, BUN 33 H, Creatinine 0.91, Estim Creat Clear Calc 79.30, Est GFR (MDRD) Af Amer 106, Est GFR (MDRD) Non-Af 87, BUN/Creatinine Ratio 36.3 H, Glucose 133 H, Calcium 8.4 L Micro: Microbiology 03/02/24 04:15 Stool Stool Occult Blood (CAMELIA) - Final 02/29/24 12:39 Bone - 5th Toe Gram Stain - Final 02/29/24 12:39 Bone - 5th Toe Wound Culture - Preliminary Gram negative gala 02/24/24 17:00 Blood Culture (Wb) - Anticubital Right Blood Culture - Final No growth in 5 days. 02/25/24 01:52 Wound - Right Foot Gram Stain - Final 02/25/24 01:52 Wound - Right Foot Wound Culture - Final Meth. resistant Staph. aureus Coag Negative Staph Coag Negative Staph#2 Morganella morganii sp morgani Klebsiella oxytoca Corynebacterium amycolatum 02/25/24 12:56 Wound - Right Foot Gram Stain - Final 02/25/24 12:56 Wound - Right Foot Wound Culture - Final Proteus mirabilis Morganella morganii sp morgani Klebsiella pneumoniae sp pneum Meth. resistant Staph. aureus 02/25/24 12:56 Wound - Right Foot Anaerobic Culture - Final Anaerobic cocci Physical Exam Const alert and no apparent distress HEENT head/scalp atraumatic and moist oral mucous membranes Resp normal respiratory effort, no retractions, no use of accessory muscles and clear to auscultation bilaterally Cardio regular rate, regular rhythm, S1 normal heart sound and S2 normal heart sound GI normal to inspection, nondistended, normoactive bowel sounds, soft to palpation, non-tender and non-distended Extremity Extremity Narrative: right bandaged and casted--did not remove. Neuro Sensorium / Orientation: awake and alert Assessment & Plan Assessment/Plan (1) Diabetic foot infection: (2) Supratherapeutic INR: PLAN: Plan 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 Concern for gas gangrene Vancomycin and amp/SB for 6 weeks (through 04/11) aortogram, right lower extremity runoff IVUS right common femoral, SFA/popliteal, TP trunk, peroneal artery, atherectomy/DCB SFA/popliteal, mechanical thrombectomy peroneal, angioplasty/stent peroneal 02/28: Tendo Achilles lengthening, right lower extremity; Transmetatarsal amputation, right foot; Application of antibiotic beads, vancomycin, right foot; Musculocutaneous flap closure, right foot; Application of posterior splint, right lower extremity Cultures are polymicrobial with Proteus, Morganella, Klebsiella, MRSA ID following Anemia Acute on chronic. Baseline Hg 7.3. Down to 6.2 today. Improved after 1 units. Chronic conditions: CAD status post CABG/PAD status post femoral-popliteal bypass/essential HTN/HLD/aortic valve disease/chronic systolic CHF: Has [place] mechanical valve, will need to be bridged if he needs to be reversed completely for surgery. INR was supratherapeutic, will hold Coumadin but not reverse in anticipation of surgery. Echo 10/30/2022 with an EF of 40 to 45% and normal AV bioprosthetic valve. Continue with aspirin and Plavix. Blood pressure stable. Can continue with his home blood pressure medications, will monitor and make adjustments as necessary DM2 with neuropathy: Continue to hold his home medications. Sliding scale insulin. Accu-Cheks ACHS. Will monitor make adjustments as necessary Iron deficiency anemia: Continue with his oral iron replacement Anxiety/depression: Stable. Continue with his home medications Chronic COPD: Stable. Continue with his home inhalers. GERD: Stable. Continue with PPI VTE prophylaxis: not indicated as already anticoagulated. Disposition: TBD. Ensuring stability on Hg, pt may be ready for DC as soon as 03/02. Charges/Coding Visit Charges Inpatient E&M: 88270 Subs Hosp L2
[2024-03-02 08:13] LABS: Bedside Glucose 110 mg/dL (74-106)
[2024-03-02] MEDS: Insulin Lispro 100 UNIT/ML INSULN.PEN SC ×5 (08:22→16:51)
[2024-03-02] MEDS: Gabapentin 100 MG Capsule PO (09:25)
[2024-03-02] MEDS: Polyethylene Glycol 3350 17 GM PACKET PO (09:27)
[2024-03-02] MEDS: Juven (unflavored) Packet 1 PACKET PO (09:27)
[2024-03-02] MEDS: DOXEPIN HCL 50 MG CAPSULE PO (09:28)
[2024-03-02] MEDS: Aspirin E.C. 81 MG Tablet PO (09:28)
[2024-03-02] MEDS: Pantoprazole Sodium 40 MG Tablet PO (09:28)
[2024-03-02] MEDS: Clopidogrel Bisulfate 75 MG Tablet PO (09:28)
[2024-03-02] MEDS: Metoprolol(XL)Succ 25 MG Tablet PO (09:28)
[2024-03-02] MEDS: Losartan Potassium 100 MG Tablet PO (09:28)
[2024-03-02] MEDS: Furosemide 40 MG Tablet PO (09:29)
[2024-03-02] MEDS: Ferrous Sulfate 325 MG Tablet PO (09:29)
--- NOTE | 2024-03-02 09:31 | PCM.RX.CS ---
Consult Antibiotic Management Pharmacy has been consulted to manage selected antibiotic: Vancomycin Type of Intervention Type of Consult: Follow-up Prior Doses of Antibiotics Prior Doses of Antibiotics Received/Current Regimen: the most recent dose was 750mg IV q12h until it was held due to a high trough of 22.3 Labs Labs: Sodium 137 mmol/L (136-145) 03/02/24 05:10 Potassium 4.4 mmol/L (3.5-5.1) 03/02/24 05:10 Chloride 109 mmol/L (98-107) H 03/02/24 05:10 Carbon Dioxide 24.0 mmol/L (21.0-32.0) 03/02/24 05:10 Anion Gap 4 (5-15) L 03/02/24 05:10 BUN 33 mg/dL (7-18) H 03/02/24 05:10 Creatinine 0.91 mg/dL (0.70-1.30) 03/02/24 05:10 Est GFR (MDRD) Af Amer 106 mL/min (>60) 03/02/24 05:10 Est GFR (MDRD) Non-Af 87 mL/min (>60) 03/02/24 05:10 BUN/Creatinine Ratio 36.3 RATIO (10-20) H 03/02/24 05:10 Glucose 133 mg/dL (74-106) H 03/02/24 05:10 Vancomycin Trough 22.3 ug/mL (5.0-15.0) H 03/01/24 20:30 Random Vancomycin 16.0 ug/mL (0.0-15.0) H 03/02/24 08:15 Microbiology Microbiology: Microbiology 02/29/24 12:39 Bone - 5th Toe Gram Stain - Final 02/29/24 12:39 Bone - 5th Toe Wound Culture - Preliminary Morganella morganii sp morgani Staphylococcus species 02/29/24 12:39 Bone - 5th Toe Anaerobic Culture - Preliminary Checking for anaerobes, further studies to follow. 03/02/24 04:15 Stool Stool Occult Blood (CAMELIA) - Final 02/24/24 17:00 Blood Culture (Wb) - Anticubital Right Blood Culture - Final No growth in 5 days. 02/25/24 01:52 Wound - Right Foot Gram Stain - Final 02/25/24 01:52 Wound - Right Foot Wound Culture - Final Meth. resistant Staph. aureus Coag Negative Staph Coag Negative Staph#2 Morganella morganii sp morgani Klebsiella oxytoca Corynebacterium amycolatum 02/25/24 12:56 Wound - Right Foot Gram Stain - Final 02/25/24 12:56 Wound - Right Foot Wound Culture - Final Proteus mirabilis Morganella morganii sp morgani Klebsiella pneumoniae sp pneum Meth. resistant Staph. aureus 02/25/24 12:56 Wound - Right Foot Anaerobic Culture - Final Anaerobic cocci Dosing Weight Weight used for dosin.2 kg Estimated Creatinine Clearance Estimated Creatinine Clearance: 79 ml/min Goal Trough Goal Trough: 15-20 mcg/mL Pharmacy Plan for Drug Dosing Pharmacy Plan for Drug Dosing: The vanc random level drawn at 08:15 today was 16.0 (drawn approx 24 hours after the last dose of 750mg). This is back down below 20 so will resume dosing at a new dose of 1000mg q24h. Will check a trough before the 3rd dose. Of note, the patient's SCr improved to 0.91 today from 1.18 yesterday. Pharmacy Service will continue to monitor and adjust dosing as required. Follow-Up Labs Follow-Up Labs: Trough: Vancomycin Date/Time Labs Ordered Labs to be done on [date and time ordered]: 03/04/24 09:30
[2024-03-02] MEDS: Vancomycin IV 1,000 MG/200 ML BAG 200 MG IV (09:35)
--- NOTE | 2024-03-02 12:27 | CASEMGMT ---
KALANI sent the updated Vancomycin script to [facility]. KALANI asked them to disregard the first Vancomycin script sent. Ashlyn ROBERTS
--- NOTE | 2024-03-02 13:24 | CASEMGMT ---
Discharge Planning [facility] Lizabeth Church DC Planning Asst.
--- NOTE | 2024-03-02 14:12 | TREXTCAR_ITS ---
Diet Diet Order/Speech Therapy: 02/29/24 13:40 Diet: Carbohydrate Controlled Dietary Modifications:: Consistent Carbohydrate Type of Dietary Supplement:: Renny Routine Orders/Code Status Code Status: DNRCC-A (no intubation) Wound(s) Left second toe: Wound Type: Amputation Right foot: Wound Type: Neuropathic/Diabetic Foot Ulcer RIGHT LOWER LEG/FOOT: Wound Type: Surgical Incision left groin: Wound Type: Surgical Incision Therapies Weight Bearing: Non weight bearing Extremity Affected:: Right Lower Physical Therapy: Eval and Treat Occupational Therapy: Eval and Treat Problem/Diagnosis (1) Diabetic foot infection: Status: Acute Code(s): E11.628 - Type 2 diabetes mellitus with other skin complications; L08.9 - Local infection of the skin and subcutaneous tissue, unspecified (2) Supratherapeutic INR: Status: Acute Code(s): R79.1 - Abnormal coagulation profile Plan 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 * Concern for gas gangrene * Vancomycin and amp/SB for 6 weeks (through 04/11) * aortogram, right lower extremity runoff IVUS right common femoral, SFA/popliteal, TP trunk, peroneal artery, atherectomy/DCB SFA/popliteal, mechanical thrombectomy peroneal, angioplasty/stent peroneal * 02/28: Tendo Achilles lengthening, right lower extremity; Transmetatarsal amputation, right foot; Application of antibiotic beads, vancomycin, right foot; Musculocutaneous flap closure, right foot; Application of posterior splint, right lower extremity * Cultures are polymicrobial with Proteus, Morganella, Klebsiella, MRSA * ID following Anemia * Acute on chronic. * Baseline Hg 7.3. Down to 6.2 today. * Improved after 1 units. Chronic conditions: * CAD status post CABG/PAD status post femoral-popliteal bypass/essential HTN/HLD/aortic valve disease/chronic systolic CHF: Has [place] mechanical valve, will need to be bridged if he needs to be reversed completely for surgery. INR was supratherapeutic, will hold Coumadin but not reverse in anticipation of surgery. Echo 10/30/2022 with an EF of 40 to 45% and normal AV bioprosthetic valve. Continue with aspirin and Plavix. Blood pressure stable. Can continue with his home blood pressure medications, will monitor and make adjustments as necessary * DM2 with neuropathy: Continue to hold his home medications. Sliding scale insulin. Accu-Cheks ACHS. Will monitor make adjustments as necessary * Iron deficiency anemia: Continue with his oral iron replacement * Anxiety/depression: Stable. Continue with his home medications * Chronic COPD: Stable. Continue with his home inhalers. * GERD: Stable. Continue with PPI VTE prophylaxis: not indicated as already anticoagulated. Disposition: TBD. Ensuring stability on Hg, pt may be ready for DC as soon as 03/02. Allergies/Procedures Done in Hospital Allergies No Known Allergies Allergy (Verified 02/24/24 15:39) Procedures: - (1. Tendo Achilles lengthening, right lower extremity 2. Transmetatarsal amputation, right foot 3. Application of antibiotic beads, vancomycin, right foot 4. Musculocutaneous flap closure, right foot 5. Application of posterior splint, right lower extremity) Type of Care/Length of Stay Estimated LOS: Convalescent Care Less Than 30 days Type of Care Needed: Skilled Rehab Potential: Fair Prognosis: Good Additional Orders/Day of Discharge Day of Discharge: 03/02/24 Dietary and Speech Recommendations Dietitian Recommendations/Changes: Will change diet to 2000 calorie/consistent carbohydrate; cardiac with extra 1-2 oz meat/protein Q meal. Will continue Renny BID w/ medpass. Discharge Plan Admission Admit Date/Time: 02/24/24 19:19 Primary Reason for Your Visit: right foot osteomyelitis Attending Provider: Kendrick Drummond Primary Care Provider: Saurabh Hernandez Chi Consulting Providers: Kendrick May; Ale Hidalgo; John Johansen; Fernandez Rosario; Giancarlo Gee; Roverto Lyons Instructions Additional Instructions / Restrictions: Wound care: Please leave right lower extremity splint clean dry and intact. Does not need to be changed until the patient shows up at the wound care center next Tuesday. Discharge Orders/Prescriptions Prescriptions: New ampicillin-sulbactam 3 gram Recon Soln 3 g IV Q8 40 Days Qty: 120 0RF Rx Instructions: stop date 04/11/24. Dx: foot osteomyelitis. Weekly bmp, cbc, esr, and vanc trough. Fax to [phone]. Routine picc care per protocol. vancomycin in dextrose 5 % 1 gram/200 mL Piggyback 1,000 mg IV Q24H 37 Days Qty: 37 0RF Rx Instructions: stop date 04/11/24. Dx: foot osteomyelitis. Weekly bmp, cbc, esr, and vanc trough. Fax to [phone]. Routine picc care per protocol. acetaminophen 325 mg Tablet 1,000 mg PO Q8H PRN PRN (Reason: Fever, pain 1-04/26) Qty: 0 0RF nicotine 21 mg/24 hr Patch 24 Hour 21 mg transdermal DAILY Qty: 0 0RF insulin lispro [Humalog KwikPen Insulin] 100 unit/mL Insulin Pen See Protocol subcut ACHS Qty: 0 0RF Protocol: 3. Sliding Scale Insulin Med Dosing Condition: 150-189 mg/dl = 1 unit Condition: 190-229 mg/dl = 2 units Condition: 230-269 mg/dl = 3 units Condition: 270-309 mg/dl = 4 units Condition: 310-349 mg/dl = 5 units Condition: 350-399 mg/dl = 6 units Condition: 400-449 mg/dl = 7 units Condition: Greater than 449 call physician Protocol Text: - Use for Total Daily Dose of Insulin 37-55 units - Obsese, infected, or steroid patients MEDIUM DOSING ALGORITHIM Renny (with collagen) 7-7-1.5 gram Powder In Packet 1 packet PO BIDCM Qty: 0 0RF Continued pantoprazole 40 mg tablet,delayed release (DR/EC) 40 mg PO QDAY losartan 100 mg tablet 100 mg PO DAILY cholecalciferol (vitamin D3) 25 mcg (1,000 unit) capsule 25 mcg PO DAILY atorvastatin 40 mg Tablet 40 mg PO DAILY ferrous sulfate 325 mg (65 mg iron) tablet 325 mg PO DAILY furosemide 40 mg Tablet 40 mg PO DAILY Qty: 0 0RF cyclobenzaprine 10 mg Tablet 10 mg PO TID PRN (Reason: Muscle Pain) insulin lispro [Humalog KwikPen Insulin] 100 unit/mL Insulin Pen 5 unit SUBCUT ACHS Rx Instructions: set 5 u in addition to SLIDING SCALE Centrum Silver Men [phone] mcg tablet 1 tab PO DAILY aspirin [Adult Aspirin Regimen] 81 mg tablet,delayed release (DR/EC) 81 mg PO DAILY mirtazapine 7.5 mg tablet 7.5 mg PO QHS gabapentin 100 mg capsule 100 mg PO BID metoprolol succinate 25 mg tablet extended release 24 hr 25 mg PO DAILY Tradjenta 5 mg tablet 5 mg PO DAILY doxepin 50 mg capsule 50 mg PO DAILY insulin glargine-yfgn 100 unit/mL (3 mL) Insulin Pen 15 unit subcut QHS warfarin 1 mg tablet 1.5 mg PO DAILY Patient Comments: on hold till 02/24 per pt clopidogrel [Plavix] 75 mg tablet 75 mg PO DAILY Qty: 90 0RF Discontinued metformin 500 mg tablet 500 mg PO BID Referrals / Follow Up: Roverto Lyons DPM [Med Staff - Active Staff] - (Please follow-up with Dr. Lyons at the wound care center next Tuesday. Please call for appointment time.) Saurabh Hernandez Chi, MD [Primary Care Provider] - Within 2 Weeks Disposition Disposition (needs filled in before D/C Order can be placed): Care Home Facility
--- NOTE | 2024-03-02 14:12 | CASEMGMT ---
Patient was approved by insurance. KALANI notified physician and he will send patient today. SW notified [facility]. Ashlyn ROBERTS
--- NOTE | 2024-03-02 14:21 | PCM.DC.SUM ---
Providers Date of Admission: 02/24/24 Primary Care Physician: Dr. Saurabh Hernandez MD Consultations 02/24/24 20:27 Consult: Cardiology Routine Consulting Provider: Giancarlo Gee Reason for Consult: surgical clearance, diabetic foot EMERGENT Consult: No MD Notified: Yes Date Notified: 02/24/24 Time Notified: 19:22 Method of Notification: Text Consult: Infectious Disease Routine Consulting Provider: John Johansen Reason for Consult: Diabetic foot wounds EMERGENT Consult: No MD Notified: Yes Date Notified: 02/27/24 Time Notified: 06:47 Method of Notification: Text Consult: Onc/Wound/washer and crusher tender Routine Comment: Reason for Consult:: Diabetic foot wounds Consult: Podiatry Routine Consulting Provider: Roverto Lyons Reason for Consult: Diabetic foot wound EMERGENT Consult: No Notified: Yes Date Notified: 02/24/24 Time Notified: 19:22 Method of Notification: ED Physician Initiated Consult: Vascular Surgery Routine Consulting Provider: Kendrick May Reason for Consult: recent PCI PAD, admit for diabetic foot infection RLE EMERGENT Consult: No Notified: Yes Date Notified: 02/24/24 Time Notified: 19:22 Method of Notification: ED Physician Initiated 02/25/24 13:56 Consult: Vascular Surgery Routine Consulting Provider: Kendrick May Reason for Consult: podiatry planning surgery would like input/clearance EMERGENT Consult: No Notified: Yes Date Notified: 02/25/24 Time Notified: 13:57 Method of Notification: ED Physician Initiated 02/28/24 09:18 Consult: Infectious Disease Routine Consulting Provider: John Johansen Reason for Consult: Polymicrobial DM ulcer EMERGENT Consult: No Notified: Yes Date Notified: 02/28/24 Time Notified: 09:19 Method of Notification: Text Reason For Visit: DIABETIC FOOT INFECTION, SUPRATHERPEUTIC INR Diagnosis Discharge Diagnosis (1) Diabetic foot infection: Status: Acute Code(s): E11.628 - Type 2 diabetes mellitus with other skin complications; L08.9 - Local infection of the skin and subcutaneous tissue, unspecified (2) Supratherapeutic INR: Status: Acute Code(s): R79.1 - Abnormal coagulation profile Plan 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 Concern for gas gangrene Vancomycin and amp/SB for 6 weeks (through 04/11) aortogram, right lower extremity runoff IVUS right common femoral, SFA/popliteal, TP trunk, peroneal artery, atherectomy/DCB SFA/popliteal, mechanical thrombectomy peroneal, angioplasty/stent peroneal 02/28: Tendo Achilles lengthening, right lower extremity; Transmetatarsal amputation, right foot; Application of antibiotic beads, vancomycin, right foot; Musculocutaneous flap closure, right foot; Application of posterior splint, right lower extremity Cultures are polymicrobial with Proteus, Morganella, Klebsiella, MRSA ID following Anemia Acute on chronic. Baseline Hg 7.3. Down to 6.2 today. Improved after 1 units. Chronic conditions: CAD status post CABG/PAD status post femoral-popliteal bypass/essential HTN/HLD/aortic valve disease/chronic systolic CHF: Has [place] mechanical valve, will need to be bridged if he needs to be reversed completely for surgery. INR was supratherapeutic, will hold Coumadin but not reverse in anticipation of surgery. Echo 10/30/2022 with an EF of 40 to 45% and normal AV bioprosthetic valve. Continue with aspirin and Plavix. Blood pressure stable. Can continue with his home blood pressure medications, will monitor and make adjustments as necessary DM2 with neuropathy: Continue to hold his home medications. Sliding scale insulin. Accu-Cheks ACHS. Will monitor make adjustments as necessary Iron deficiency anemia: Continue with his oral iron replacement Anxiety/depression: Stable. Continue with his home medications Chronic COPD: Stable. Continue with his home inhalers. GERD: Stable. Continue with PPI VTE prophylaxis: not indicated as already anticoagulated. Disposition: TBD. Ensuring stability on Hg, pt may be ready for DC as soon as 03/02. Medications at Discharge Home Medications atorvastatin 40 mg tablet 40 mg PO DAILY cholesterol 11/12/20 ferrous sulfate 325 mg (65 mg iron) tablet 325 mg PO DAILY 10/29/22 furosemide 40 mg tablet 40 mg PO DAILY #0 tabs 11/12/22 cyclobenzaprine 10 mg tablet 10 mg PO TID PRN Muscle Pain 12/11/22 insulin lispro 100 unit/mL subcutaneous pen (Humalog KwikPen (U-100) Insulin) 5 unit subcut ACHS 12/11/22 pantoprazole 40 mg tablet,delayed release 40 mg PO QDAY 10/04/23 aspirin 81 mg tablet,delayed release (Adult Aspirin Regimen) 81 mg PO DAILY 10/28/23 doxepin 50 mg capsule 50 mg PO DAILY 10/28/23 gabapentin 100 mg capsule 100 mg PO BID 10/28/23 insulin glargine-yfgn 100 unit/mL (3 mL) subcutaneous pen 15 unit subcut QHS 10/28/23 linagliptin 5 mg tablet (Tradjenta) 5 mg PO DAILY 10/28/23 metoprolol succinate 25 mg tablet,extended release 24 hr 25 mg PO DAILY 10/28/23 mirtazapine 7.5 mg tablet 7.5 mg PO QHS 10/28/23 fkvaenth-ye-wpkdt 300 mcg-K 60 mcg-lycop 600 mcg-lutein 300 mcg tablet (Centrum Silver Men) 1 tab PO DAILY 10/28/23 cholecalciferol (vitamin D3) 25 mcg (1,000 unit) capsule 25 mcg PO DAILY 10/31/23 losartan 100 mg tablet 100 mg PO DAILY 10/31/23 clopidogrel 75 mg tablet (Plavix) 75 mg PO DAILY #90 tabs 12/21/23 warfarin 1 mg tablet 1.5 mg PO DAILY 02/24/24 ampicillin-sulbactam 3 gram solution for injection 3 g IV Q8 40 days #120 ea 03/01/24 acetaminophen 325 mg tablet 1,000 mg (3.0769 x 325 mg) PO Q8H PRN PRN Fever, pain 1-04/26 #0 tabs 03/02/24 arginine 7 gram-glutam 7 gram-CaHMB 1.5 xnpj-xjqsy-cb-min oral pwd pkt (Renny (with collagen)) 1 packet PO BIDCM #0 ea 03/02/24 insulin lispro 100 unit/mL subcutaneous pen (Humalog KwikPen (U-100) Insulin) See Protocol subcut ACHS #0 mL 03/02/24 nicotine 21 mg/24 hr daily transdermal patch 21 mg transdermal DAILY #0 ea 03/02/24 vancomycin 1 gram/200 mL in dextrose 5 % intravenous piggyback 1,000 mg IV Q24H 37 days #37 BAGS 03/02/24 Hospital Course Operations - (1. Tendo Achilles lengthening, right lower extremity 2. Transmetatarsal amputation, right foot 3. Application of antibiotic beads, vancomycin, right foot 4. Musculocutaneous flap closure, right foot 5. Application of posterior splint, right lower extremity) Procedures PICC line placement Summary of Care Provided Minutes Spent on Discharge: 34 Weight / BMI Weight Weight: 88.2 kg Body Mass Index (BMI) 27.1 ABG / Lab / Microbiology Data 03/02/24 05:10 03/02/24 05:10 Laboratory: Laboratory Results - last 24 hr 03/01/24 16:15: POC Glucose 142 H 03/01/24 20:30: Vancomycin Trough 22.3 H 03/01/24 20:51: POC Glucose 194 H 03/02/24 05:10: WBC 8.1, RBC 2.44 L, Hgb 7.4 L, Hct 23.1 L, MCV 94.7 H, MCH 30.3, MCHC 32.0, RDW Std Deviation 50.2 H, RDW Coeff of Estrada 14.5, Plt Count 305, MPV 9.6, Immature Gran % (Auto) 0.600, Neut % (Auto) 73.2 H, Lymph % (Auto) 13.7 L, Sequoyah % (Auto) 9.0, Eos % (Auto) 3.3, Baso % (Auto) 0.2, Absolute Neuts (auto) 5.9, Absolute Lymphs (auto) 1.11, Nucleated RBC % 0, PT 21.3 H, INR 1.9, Sodium 137, Potassium 4.4, Chloride 109 H, Carbon Dioxide 24.0, Anion Gap 4 L, BUN 33 H, Creatinine 0.91, Estim Creat Clear Calc 79.30, Est GFR (MDRD) Af Amer 106, Est GFR (MDRD) Non-Af 87, BUN/Creatinine Ratio 36.3 H, Glucose 133 H, Calcium 8.4 L 03/02/24 07:55: POC Glucose 110 H 03/02/24 08:15: Random Vancomycin 16.0 H Microbiology: Microbiology 02/29/24 12:39 Bone - 5th Toe Gram Stain - Final 02/29/24 12:39 Bone - 5th Toe Wound Culture - Preliminary Morganella morganii sp morgani Staphylococcus species 02/29/24 12:39 Bone - 5th Toe Anaerobic Culture - Preliminary Checking for anaerobes, further studies to follow. 03/02/24 04:15 Stool Stool Occult Blood (CAMELIA) - Final 02/24/24 17:00 Blood Culture (Wb) - Anticubital Right Blood Culture - Final No growth in 5 days. 02/25/24 01:52 Wound - Right Foot Gram Stain - Final 02/25/24 01:52 Wound - Right Foot Wound Culture - Final Meth. resistant Staph. aureus Coag Negative Staph Coag Negative Staph#2 Morganella morganii sp morgani Klebsiella oxytoca Corynebacterium amycolatum 02/25/24 12:56 Wound - Right Foot Gram Stain - Final 02/25/24 12:56 Wound - Right Foot Wound Culture - Final Proteus mirabilis Morganella morganii sp morgani Klebsiella pneumoniae sp pneum Meth. resistant Staph. aureus 02/25/24 12:56 Wound - Right Foot Anaerobic Culture - Final Anaerobic cocci D/C Instructions Discharge Diet: 2000 Calorie Control Diet Meaningful Use Info Meaningful Use Meaningful Use Diagnoses (Choose all that apply): None applicable Ischemic Stroke Statin Dosing Therapy Reference: STATIN DOSE THERAPY REFERENCE: * Patients > 75 years receive moderate or high dose statin therapy. * Patients 75 years or YOUNGER should receive HIGH intensity statin dose unless contraindicated. You will be required to document reason for non-treatment if statin daily dose does not meet guidelines. HIGH DOSE STATIN THERAPY DAILY Atorvastatin > than or = to 40 mg Rosuvastatin > than or = to 20 mg Amlodipine + Atorvastatin > than or = to 2.5/40 mg Ezetimibe + Simvastatin 10/80 mg Simvastatin 80mg Discharge Plan Admission Admit Date/Time: 02/24/24 19:19 Primary Reason for Your Visit: right foot osteomyelitis Attending Provider: Kendrick Drummond Primary Care Provider: Saurabh Hernandez Chi Consulting Providers: Kendrick May; Ale Hidalgo; John Johansen; Fernandez Rosario; Giancarlo Gee; Roverto Lyons Instructions Additional Instructions / Restrictions: Wound care: Please leave right lower extremity splint clean dry and intact. Does not need to be changed until the patient shows up at the wound care center next Tuesday. Discharge Orders/Prescriptions Prescriptions: New ampicillin-sulbactam 3 gram Recon Soln 3 g IV Q8 40 Days Qty: 120 0RF Rx Instructions: stop date 04/11/24. Dx: foot osteomyelitis. Weekly bmp, cbc, esr, and vanc trough. Fax to [phone]. Routine picc care per protocol. vancomycin in dextrose 5 % 1 gram/200 mL Piggyback 1,000 mg IV Q24H 37 Days Qty: 37 0RF Rx Instructions: stop date 04/11/24. Dx: foot osteomyelitis. Weekly bmp, cbc, esr, and vanc trough. Fax to [phone]. Routine picc care per protocol. acetaminophen 325 mg Tablet 1,000 mg PO Q8H PRN PRN (Reason: Fever, pain -04/26) Qty: 0 0RF nicotine 21 mg/24 hr Patch 24 Hour 21 mg transdermal DAILY Qty: 0 0RF insulin lispro [Humalog KwikPen Insulin] 100 unit/mL Insulin Pen See Protocol subcut ACHS Qty: 0 0RF Protocol: 3. Sliding Scale Insulin Med Dosing Condition: 150-189 mg/dl = 1 unit Condition: 190-229 mg/dl = 2 units Condition: 230-269 mg/dl = 3 units Condition: 270-309 mg/dl = 4 units Condition: 310-349 mg/dl = 5 units Condition: 350-399 mg/dl = 6 units Condition: 400-449 mg/dl = 7 units Condition: Greater than 449 call physician Protocol Text: - Use for Total Daily Dose of Insulin 37-55 units - Obsese, infected, or steroid patients MEDIUM DOSING ALGORITHIM Renny (with collagen) 7-7-1.5 gram Powder In Packet 1 packet PO BIDCM Qty: 0 0RF Continued pantoprazole 40 mg tablet,delayed release (DR/EC) 40 mg PO QDAY losartan 100 mg tablet 100 mg PO DAILY cholecalciferol (vitamin D3) 25 mcg (1,000 unit) capsule 25 mcg PO DAILY atorvastatin 40 mg Tablet 40 mg PO DAILY ferrous sulfate 325 mg (65 mg iron) tablet 325 mg PO DAILY furosemide 40 mg Tablet 40 mg PO DAILY Qty: 0 0RF cyclobenzaprine 10 mg Tablet 10 mg PO TID PRN (Reason: Muscle Pain) insulin lispro [Humalog KwikPen Insulin] 100 unit/mL Insulin Pen 5 unit SUBCUT ACHS Rx Instructions: set 5 u in addition to SLIDING SCALE Centrum Silver Men [phone] mcg tablet 1 tab PO DAILY aspirin [Adult Aspirin Regimen] 81 mg tablet,delayed release (DR/EC) 81 mg PO DAILY mirtazapine 7.5 mg tablet 7.5 mg PO QHS gabapentin 100 mg capsule 100 mg PO BID metoprolol succinate 25 mg tablet extended release 24 hr 25 mg PO DAILY Tradjenta 5 mg tablet 5 mg PO DAILY doxepin 50 mg capsule 50 mg PO DAILY insulin glargine-yfgn 100 unit/mL (3 mL) Insulin Pen 15 unit subcut QHS warfarin 1 mg tablet 1.5 mg PO DAILY Patient Comments: on hold till 02/24 per pt clopidogrel [Plavix] 75 mg tablet 75 mg PO DAILY Qty: 90 0RF Discontinued metformin 500 mg tablet 500 mg PO BID Referrals / Follow Up: Roverto Lyons DPM [Med Staff - Active Staff] - (Please follow-up with Dr. Lyons at the wound care center next Tuesday. Please call for appointment time.) Saurabh Hernandez Chi, MD [Primary Care Provider] - Within 2 Weeks Kendrick May MD [Med Staff - Active Staff] - Within 1 Month Disposition Disposition (needs filled in before D/C Order can be placed): [facility] Facility Charges/Coding Visit Charges Inpatient E&M: 02614 Disch Hosp >30min
--- NOTE | 2024-03-02 14:49 | CASEMGMT ---
SW completed a PASRR in [employer]. Plan: d/c to [facility] under skilled level of care on a PASRR. Ashlyn Parkinson MSW NOZZLE WORKER
--- NOTE | 2024-03-02 15:06 | CASEMGMT ---
Discharge Planning Discharge orders, signed med list, and transport time sent to [facility] via [facility]. Physicians will transport patient by cot at 7p. Nursing, SW, patient, and his friend (Mariam) updated. Lizabeth Church DC Planning Asst.
--- NOTE | 2024-03-02 15:17 | NURSING ---
called report to nurse Scharder at [facility]
[2024-03-02 15:18] LABS: Bedside Glucose 195 mg/dL (74-106)
[2024-03-02] MEDS: Warfarin 1 MG, Warfarin 0.5 MG 1.5 MG PO (16:52)
[2024-03-02 17:11] LABS: Bedside Glucose 169 mg/dL (74-106)
== END 2024-03-02 20:04 | disposition skilled nursing facility (03) | DRG 616 ==
LOC: ED 19:02 → PCU 19:50
PROVIDERS: Family Medicine; Internal Medicine; Internal Medicine Infectious Disease; Podiatrist Foot & Ankle Surgery; Admitting Provider Family Medicine; Emergency Provider Emergency Medicine; PCP Family Medicine Geriatric Medicine
PROC: 0Y6M0Z9 Detachment at Right Foot, Partial 1st Ray, Open Approach (ICD-10-PCS; principal; 2024-02-29 11:45)
DX: E11.621 Type 2 diabetes mellitus with foot ulcer (principal); A48.0 Gas gangrene; E11.52 Type 2 diabetes mellitus with diabetic peripheral angiopathy with gangrene; I13.0 Hypertensive heart and chronic kidney disease with heart failure and stage 1 through stage 4 chronic kidney disease, or unspecified chronic kidney disease; M86.271 Subacute osteomyelitis, right ankle and foot; I50.22 Chronic systolic (congestive) heart failure; L03.115 Cellulitis of right lower limb; E11.22 Type 2 diabetes mellitus with diabetic chronic kidney disease; N18.30 Chronic kidney disease, stage 3 unspecified; J44.9 Chronic obstructive pulmonary disease, unspecified; D63.1 Anemia in chronic kidney disease; F32.A Depression, unspecified; I35.0 Nonrheumatic aortic (valve) stenosis; I70.235 Atherosclerosis of native arteries of right leg with ulceration of other part of foot; L97.514 Non-pressure chronic ulcer of other part of right foot with necrosis of bone; E11.42 Type 2 diabetes mellitus with diabetic polyneuropathy; D50.9 Iron deficiency anemia, unspecified; I25.10 Atherosclerotic heart disease of native coronary artery without angina pectoris; K21.9 Gastro-esophageal reflux disease without esophagitis; I25.5 Ischemic cardiomyopathy; F17.210 Nicotine dependence, cigarettes, uncomplicated; Z79.4 Long term (current) use of insulin; E78.5 Hyperlipidemia, unspecified; M67.01 Short Achilles tendon (acquired), right ankle; E11.69 Type 2 diabetes mellitus with other specified complication; F41.9 Anxiety disorder, unspecified; I25.2 Old myocardial infarction; Z89.421 Acquired absence of other right toe(s); E11.628 Type 2 diabetes mellitus with other skin complications; Z89.422 Acquired absence of other left toe(s); B95.62 Methicillin resistant Staphylococcus aureus infection as the cause of diseases classified elsewhere; B96.1 Klebsiella pneumoniae [K. pneumoniae] as the cause of diseases classified elsewhere; B96.4 Proteus (mirabilis) (morganii) as the cause of diseases classified elsewhere; R79.1 Abnormal coagulation profile; Z95.1 Presence of aortocoronary bypass graft; Z66 Do not resuscitate; Z95.2 Presence of prosthetic heart valve; Z95.5 Presence of coronary angioplasty implant and graft; Z79.2 Long term (current) use of antibiotics; Z79.01 Long term (current) use of 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s; Z79.02 Long term (current) use of antithrombotics/antiplatelets; Z79.82 Long term (current) use of aspirin; Z79.84 Long term (current) use of oral hypoglycemic drugs; Z79.899 Other long term (current) drug therapy; Z86.718 Personal history of other venous thrombosis and embolism
CPT/HCPCS: 36200; 36245; 36415; 36569; 37184; 37225; 37230; 37252; 37253; 73620; 73630; 75625; 75710; 76000; 76937; 80048; 80053; 80076; 80202; 82274; 82728; 82962; 83036; 83540; 83550; 83605; 83735; 83880; 85025; 85347; 85610; 85652; 85730; 86140; 86850; 86900; 86901; 86920; 86922; 87040; 87070; 87075; 87077; 87186; 87205; 87640; 88305; 88311; 93005; 93922; 94640; 94668; 97110; 97116; 97162; 97166; 97530; 97535; 97802; 99152; 99153; 99285; C1724; C1725; C1760; C1769; C1874; C1887; C1894; C2623; J7040; J7050; J7120; P9016; Q9967; A4216; C1757; J0295; J2405; J2916

== ENCOUNTER 2024-03-10 07:04 | Emergency (ER) | payer MEDICARE, MEDICAID, SELFPAY ==
[2024-03-10 07:06] VITALS: BP 133/64; PULSE 74; RESP 18; TEMP 36.7; O2SAT 96; BMI 28.3
--- NOTE | 2024-03-10 07:13 | EDS_ITS ---
HPI History of Present Illness Chief Complaint: Wound Check Narrative Narrative: 73-year-old male presents from care home facility with clogged PICC line. He has a PICC line in his right upper extremity through which she receives antibiotics for right foot infection. Has had osteomyelitis of the right foot. He states that it was working yesterday. He was sent from [facility] because he states that his PICC line is clogged. He denies other symptoms. He states it might not of been working properly or at least they were having problems with it yesterday possibly. [facility] Medical History Diabetes mellitus PVD (peripheral vascular disease) Anemia Diabetic foot infection PAOD (peripheral arterial occlusive disease) Trigger finger of both hands Amputation of second toe, right, traumatic Aftercare following surgery of the circulatory system Anemia Hyperbilirubinemia Nicotine dependence, cigarettes, uncomplicated Atherosclerosis of [place]oux arteries of right leg with ulceration of other part of foot Non-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 Peripheral vascular occlusive disease Diabetic ulcer of toe of left foot associated with type 2 diabetes mellitus Ulcer of toe of left foot Atherosclerosis of sioux arteries of left leg with ulceration of other part of foot Wears glasses Alcohol use Insulin dependent diabetes mellitus Back pain Syncope Dietary restriction Cardiology follow-up encounter History of rheumatic fever ZOFIA (acute kidney injury) Recurrent right pleural effusion Osteomyelitis of toe of right foot Non-pressure chronic ulcer of other part of left foot with fat layer exposed Acute exacerbation of CHF (congestive heart failure) Anticoagulant long-term use Acute and chronic respiratory failure with hypercapnia Encephalopathy acute Acute hypercapnic respiratory failure Atherosclerosis of lower extremity with ulceration COPD (chronic obstructive pulmonary disease) Inability to walk Adult failure to thrive CHF (congestive heart failure) Smoker Congestive heart failure Sternal wound infection 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 MSSA (methicillin susceptible Staphylococcus aureus) infection History of non-ST elevation myocardial infarction (NSTEMI) (04/23/20) Non-healing surgical wound (05/01/20) detention current use of 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 Chronic combined systolic and diastolic CHF (congestive heart failure) Type 2 diabetes mellitus Atherosclerosis of coronary artery without angina pectoris Nicotine dependence Ischemic cardiomyopathy Secondary pulmonary arterial hypertension Essential (primary) hypertension Nonrheumatic aortic (valve) stenosis 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 Osteomyelitis Diabetic foot infection Bleeding disorder Ulcer of right foot with fat layer exposed COPD (chronic obstructive pulmonary disease) Hyperlipidemia DVT (deep venous thrombosis) GERD (gastroesophageal reflux disease) Home Medications ?Medication ?Instructions ?Recorded ?Last Taken ?Type atorvastatin 40 mg tablet 40 mg PO DAILY cholesterol 11/12/20 11/03/23 History ferrous sulfate 325 mg (65 mg 325 mg PO DAILY 10/29/22 11/02/23 History iron) tablet furosemide 40 mg tablet 40 mg PO DAILY #0 tabs 11/12/22 11/02/23 Rx cyclobenzaprine 10 mg tablet 10 mg PO TID PRN Muscle Pain 12/11/22 11/02/23 History insulin lispro 100 unit/mL 5 unit subcut ACHS 12/11/22 11/03/23 History subcutaneous pen (Humalog KwikPen (U-100) Insulin) pantoprazole 40 mg tablet,delayed 40 mg PO QDAY 10/04/23 11/02/23 History release aspirin 81 mg tablet,delayed 81 mg PO DAILY 10/28/23 11/02/23 History release (Adult Aspirin Regimen) doxepin 50 mg capsule 50 mg PO DAILY 10/28/23 11/02/23 History gabapentin 100 mg capsule 100 mg PO BID 10/28/23 11/02/23 History insulin glargine-yfgn 100 unit/mL 15 unit subcut QHS 10/28/23 11/03/23 History (3 mL) subcutaneous pen linagliptin 5 mg tablet (Tradjenta) 5 mg PO DAILY 10/28/23 11/03/23 History metoprolol succinate 25 mg 25 mg PO DAILY 10/28/23 11/03/23 History tablet,extended release 24 hr mirtazapine 7.5 mg tablet 7.5 mg PO QHS 10/28/23 11/03/23 History vjzjxhba-nw-pgqym 300 mcg-K 60 1 tab PO DAILY 10/28/23 11/02/23 History mcg-lycop 600 mcg-lutein 300 mcg tablet (Centrum Silver Men) cholecalciferol (vitamin D3) 25 25 mcg PO DAILY 10/31/23 11/02/23 History mcg (1,000 unit) capsule losartan 100 mg tablet 100 mg PO DAILY 10/31/23 11/03/23 History clopidogrel 75 mg tablet (Plavix) 75 mg PO DAILY #90 tabs 12/21/23 Unknown Rx warfarin 1 mg tablet 1.5 mg PO DAILY 02/24/24 Unknown History ampicillin-sulbactam 3 gram 3 g IV Q8 40 days #120 ea 03/01/24 Unknown Rx solution for injection acetaminophen 325 mg tablet 1,000 mg (3.0769 x 325 mg) PO Q8H 03/02/24 Unknown Rx PRN PRN Fever, pain 1-1010 #0 tabs arginine 7 gram-glutam 7 1 packet PO BIDCM #0 ea 03/02/24 Unknown Rx gram-CaHMB 1.5 vamc-buibg-xd-min oral pwd pkt (Renny (with collagen)) insulin lispro 100 unit/mL See Protocol subcut ACHS #0 mL 03/02/24 Unknown Rx subcutaneous pen (Humalog KwikPen (U-100) Insulin) nicotine 21 mg/24 hr daily 21 mg transdermal DAILY #0 ea 03/02/24 Unknown Rx transdermal patch vancomycin 1 gram/200 mL in 1,000 mg IV Q24H 37 days #37 BAGS 03/02/24 Unknown Rx dextrose 5 % intravenous piggyback Allergy/AdvReac Type Severity Reaction Status Date / Time No Known Allergies Allergy Verified 02/24/24 15:39 Family History Mother Diabetes Heart disease Father Diabetes Surgical History History of amputation History of incision and drainage (09/22/20) History of angioplasty of peripheral vessel (01/02/10) History of lumbar laminectomy History of femoropopliteal bypass (2008) H/O coronary artery bypass surgery (05/01/20) History of mechanical aortic valve replacement History of left heart catheterization (04/23/20) Social History household members: significant other Smoking Status: Current every day smoker tobacco type: cigarettes alcohol intake: never substance use type: does not use caffeine: No ROS ROS ED ROS Narrative Patient has no complaints symptomatically except for reported nonflow in PICC line. EXAM Physical Exam Narrative Exam Narrative: Afebrile. Vital signs noted. Nontoxic-appearing. Regular rate and rhythm. Lungs clear to auscultation bilaterally. Abdomen soft nontender with normoactive bowel sounds. Positive right lower extremity wrapped in Donte wrap and bandages. Positive PICC line right upper extremity. No noted surrounding erythema or noted purulent drainage. Const Vital Signs: 03/10/24 07:06 Temperature 98.1 F Temperature Source Oral Pulse Rate 74 Respiratory Rate 18 Blood Pressure 133/64 H Blood Pressure Mean 87 Pulse Ox 96 Oxygen Delivery Method Room Air MDM MDM MDM Narrative Medical decision making narrative: RN reports that she changed and is able to flush and draw back, but there is mild resistance. Cathflo will be inserted into the PICC line per protocol. Afterwards, at approximately 8:10 AM, I was informed by RN that PICC line now flushes easily and draws back. I feel he can be discharged to follow-up and continue to use his PICC line and receive his antibiotics. Disposition is discharged in improved and stable condition. Discharge Plan Triage Chief Complaint: Wound Check ED Provider: Lexx Beavers Dx/Rx/DC Orders Clinical Impression: Occluded PICC line Instructions: ED PICC Line Care Prescriptions: No Action pantoprazole 40 mg tablet,delayed release (DR/EC) 40 mg PO QDAY losartan 100 mg tablet 100 mg PO DAILY cholecalciferol (vitamin D3) 25 mcg (1,000 unit) capsule 25 mcg PO DAILY atorvastatin 40 mg Tablet 40 mg PO DAILY ferrous sulfate 325 mg (65 mg iron) tablet 325 mg PO DAILY furosemide 40 mg Tablet 40 mg PO DAILY Qty: 0 0RF cyclobenzaprine 10 mg Tablet 10 mg PO TID PRN (Reason: Muscle Pain) insulin lispro [Humalog KwikPen Insulin] 100 unit/mL Insulin Pen 5 unit SUBCUT ACHS Rx Instructions: set 5 u in addition to SLIDING SCALE Centrum Silver Men [phone] mcg tablet 1 tab PO DAILY aspirin [Adult Aspirin Regimen] 81 mg tablet,delayed release (DR/EC) 81 mg PO DAILY mirtazapine 7.5 mg tablet 7.5 mg PO QHS gabapentin 100 mg capsule 100 mg PO BID metoprolol succinate 25 mg tablet extended release 24 hr 25 mg PO DAILY Tradjenta 5 mg tablet 5 mg PO DAILY doxepin 50 mg capsule 50 mg PO DAILY insulin glargine-yfgn 100 unit/mL (3 mL) Insulin Pen 15 unit subcut QHS warfarin 1 mg tablet 1.5 mg PO DAILY Patient Comments: on hold till 02/24 per pt ampicillin-sulbactam 3 gram Recon Soln 3 g IV Q8 40 Days Qty: 120 0RF Rx Instructions: stop date 04/11/24. Dx: foot osteomyelitis. Weekly bmp, cbc, esr, and vanc trough. Fax to [phone]. Routine picc care per protocol. vancomycin in dextrose 5 % 1 gram/200 mL Piggyback 1,000 mg IV Q24H 37 Days Qty: 37 0RF Rx Instructions: stop date 04/11/24. Dx: foot osteomyelitis. Weekly bmp, cbc, esr, and vanc trough. Fax to [phone]. Routine picc care per protocol. acetaminophen 325 mg Tablet 1,000 mg PO Q8H PRN PRN (Reason: Fever, pain -04/26) Qty: 0 0RF nicotine 21 mg/24 hr Patch 24 Hour 21 mg transdermal DAILY Qty: 0 0RF insulin lispro [Humalog KwikPen Insulin] 100 unit/mL Insulin Pen See Protocol subcut ACHS Qty: 0 0RF Protocol: 3. Sliding Scale Insulin Med Dosing Condition: 150-189 mg/dl = 1 unit Condition: 190-229 mg/dl = 2 units Condition: 230-269 mg/dl = 3 units Condition: 270-309 mg/dl = 4 units Condition: 310-349 mg/dl = 5 units Condition: 350-399 mg/dl = 6 units Condition: 400-449 mg/dl = 7 units Condition: Greater than 449 call physician Protocol Text: - Use for Total Daily Dose of Insulin 37-55 units - Obsese, infected, or steroid patients MEDIUM DOSING ALGORITHIM Renny (with collagen) 7-7-1.5 gram Powder In Packet 1 packet PO BIDCM Qty: 0 0RF clopidogrel [Plavix] 75 mg tablet 75 mg PO DAILY Qty: 90 0RF Primary Care Provider: Feliciano Pace Referrals: Saurabh Hernandez Chi, MD [Med Staff - Active Staff] - Print Language: Spanish Disposition Disposition: [facility] Discharge Location: [facility]
[2024-03-10] MEDS: Alteplase 2 MG/2 ML Vial IV (07:33)
[2024-03-10 08:12] VITALS: BP 140/68; PULSE 78; RESP 17; TEMP 36.6; O2SAT 97
--- NOTE | 2024-03-10 08:17 | NURSING ---
CALLED [facility], ETA IS 30 MIN
--- NOTE | 2024-03-10 08:28 | ED.RN ---
REPORT GIVEN TO [facility] RIDE ETA 15 MIN
== END 2024-03-10 08:59 | disposition skilled nursing facility (03) ==
PROVIDERS: Emergency Provider Emergency Medicine; PCP Family Medicine; Visit Provider Emergency Medicine
DX: T82.898A Other specified complication of vascular prosthetic devices, implants and grafts, initial encounter (principal); I11.0 Hypertensive heart disease with heart failure; I50.42 Chronic combined systolic (congestive) and diastolic (congestive) heart failure; J44.9 Chronic obstructive pulmonary disease, unspecified; E11.42 Type 2 diabetes mellitus with diabetic polyneuropathy; F17.210 Nicotine dependence, cigarettes, uncomplicated; I25.10 Atherosclerotic heart disease of native coronary artery without angina pectoris; I25.2 Old myocardial infarction; X58.XXXA Exposure to other specified factors, initial encounter; Z86.718 Personal history of other venous thrombosis and embolism
CPT/HCPCS: 36592; 96374; 99282; J2997; A4216

== ENCOUNTER → 2024-04-17 | Outpatient (CLI) | payer MEDICARE, MEDICAID, SELFPAY ==
--- NOTE | 2024-04-17 07:58 | ART_ITS ---
Reason For Study: HX RLE Thrombectory / Issa A stent Procedure A bilateral lower extremity continuous wave Doppler with analog waveform analysis and ankle brachial indexes. Left Segmental Pressures Left brachial= 139mmHg. Left posterior tibial artery = >254mmHg. Left dorsalis pedis artery = 149mmHg. Left digit = 55 mmHg. The left posterior tibial artery waveforms are biphasic. The left dorsalis pedis waveforms are monophasic. Right Segmental Pressures Right brachial= 152mmHg. Right posterior tibial artery = 152mmHg. The right posterior tibial artery waveforms are monophasic. Indices The right ankle brachial index by the posterior tibial artery is 1.00. The left ankle brachial index by the posterior tibial artery is N/C. The left ankle brachial index by the dorsalis pedis is 0.98. The left digital-brachial index is 0.36. VL/Ankle Brachial Index Interpretation Summary Right HERNESTO 1.0, likely artificially elevated. Doppler/PVR waveforms of the right ankle moderately diminished at rest. Left HERNESTO 0.98, mild arterial insufficiency. Doppler/PVR waveforms of the left a nkle mildly diminished at rest. Ordering Physician: Noemí Amos Referring Physician: Feliciano Pace Performed By: Santiago Brar RVT
--- NOTE | 2024-04-17 07:58 | ADUL_ITS ---
Reason For Study: HX RLE Thrombectomy / Mino A Stent Right Velocities Ext. Iliac Artery, dist = 114.5 cm./sec. Common Femoral Artery, mid = 146.1 cm./sec. Supf Femoral Artery, prox = 100.8 cm./sec. Supf Femoral Artery, mid = 86.0 cm./sec. Supf Femoral Artery, dist. = 96.4 cm./sec. Profunda Femoral Artery = 165.5 cm./sec. Popliteal Artery, mid = 89.8 cm./sec. Post. Tibial Artery, prox = 76.6 cm./sec. Post. Tibial Artery, mid = 20.7 cm./sec. Post. Tibial Artery, dist = 14.1 cm./sec. Peroneal Artery, prox = 124.1 cm./sec. Peroneal Artery, mid = 108.6 cm./sec. Peroneal Artery,dist = 93.0 cm./sec. Stent noted in MINO A Ant. Tibial Artery, prox = 49.8 cm./sec. Unable to visualize flow in Mid / Dist MAGNUS. Procedure The exam was diagnostic. Exam performed in department. VL/US Art Duplex Unilat Lower Ext Interpretation Summary Patent right SFA/popliteal artery intervention with normal velocities and wavef orms. Peroneal artery stent patent with normal velocities and waveforms. Posterior tibial artery patent with mildly diminished waveforms and velocities distal. Anterior tibial artery occluded mid-distal. Ordering Physician: Noemí Amos Referring Physician: Feliciano Pace Performed By: Santiago Brar RVT
== END | disposition home or self-care (01) ==
LOC: CVS 07:57
PROVIDERS: PCP Family Medicine; Referring Provider Physician Assistant; Visit Provider Physician Assistant
DX: Z48.812 Encounter for surgical aftercare following surgery on the circulatory system (principal)
CPT/HCPCS: 93922; 93926

== ENCOUNTER → 2024-05-15 | Outpatient (CLI) | payer MEDICARE, MEDICAID, SELFPAY ==
--- OUTSIDE RECORDS SUMMARY | 2024-05-15 20:04 | XMS RPT_ITS | CCD ---
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 Normal [facility] 12-29-2020 [facility] Telephone (INFDAK) SKY CORONEL ([id number]) 1950 M Date Time Provider Department 12/29/20 SHERRY MACEDO INFDAK During your visit today, we recorded the following information about you: HARVEY Anderson 12/29/2020 1:46 PM Signed Spoke with Dr Johansen's office to confirm patient is not being treated by them Spoke with Meka at [facility] who states patient was discharged home, but could not give me any more information Left detailed VM for patient and Mariam DESIR, to return office call HARVEY Anderson 12/29/2020 2:27 PM Signed Patient returned office call and confirmed that he is now going to [facility] and their Providers have taken over his care Patient will be taken off the CoPAT follow list Allergies As of Date: 12/29/2020 (No Known Allergies) Date Reviewed: 12/01/2020 Reviewed by: Keila Dallas LPN - Fully Assessed Reason for Visit: CoPat Stop [0584] Prescriptions as of 12/29/2020 Sig: CASPOFUNGIN 50 MG INTRAVENOUS* Inject 50 mg intravenously on* Patient not taking: Reported on 12/01/2020 MICAFUNGIN 100 MG INTRAVENOUS* Inject 100 mg intravenously o* GABAPENTIN 100 MG CAPSULE Take 2 capsules by mouth ever* METOPROLOL SUCCINATE ER 25 MG* Take 3 tablets by mouth once * ASCORBIC ACID (VITAMIN C) 500* Take 1 tablet by mouth twice * FERROUS SULFATE 325 MG (65 MG* Take 1 tablet by mouth once d* INSULIN GLARGINE (U-100) 100 * Inject 30 Units subcutaneousl* INSULIN LISPRO (U-100) 100 UN* Inject 10 Units subcutaneousl* GLUCAGON HCL 1 MG/ML SOLUTION* Inject 1 mg intramuscularly a* DEXTROSE 40 % ORAL GEL Take 15 g by mouth as needed. POLYETHYLENE GLYCOL 3350 17 G* Take 1 Packet by mouth once d* SENNOSIDES 8.6 MG-DOCUSATE SO* Take 1 tablet by mouth twice * BISACODYL 10 MG RECTAL SUPPOS* 1 Suppository by RECTAL route* ASPIRIN 81 MG CHEWABLE TABLET Take 1 tablet by mouth once d* POTASSIUM CHLORIDE ER 20 MEQ * Take 1 tablet by mouth once d* ATORVASTATIN 40 MG TABLET Take 1 tablet by mouth daily * FUROSEMIDE 40 MG TABLET Take 1 tablet by mouth once d* LISINOPRIL 5 MG TABLET Take 1 tablet by mouth once d* METFORMIN 500 MG TABLET Take 1 tablet by mouth twice * SITAGLIPTIN 100 MG TABLET Take 1 tablet by mouth once d* ACETAMINOPHEN 500 MG TABLET Take 2 tablets by mouth every* Patient taking differently: Take 500 mg by mouth once tatyana* Problem List As Of Date 12/29/2020 Noted Resolved SEBACEOUS CYST [L72.3] 10/02/2008 Peripheral vascular disease, unspecified (HCC) *01/28/2009 ASA CLASS III [1003] 03/05/2009 Other Acute Postoperative Pain [G89.18] 03/31/2009 Generalized and Unspecified Atherosclerosis [I7*01/05/2010 SUMMARY [V999.95] 01/05/2010 Long-term (current) use of 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s, INR *01/03/2010 NSTEMI (non-ST elevated myocardial infarction) *04/26/2020 Nicotine use disorder, F17.2 [F17.200] 05/02/2020 Nonrheumatic aortic valve stenosis [I35.0] 05/11/2020 S/P AVR (aortic valve replacement) [Z95.2] 05/11/2020 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 CNPNon 12-24-2020 CNPN Telephone (INFDAK) SKY CORONEL ([id number]) 1950 M Date Time Provider Department 12/24/20 SHERRY MACEDO INFDAK During your visit today, we recorded the following information about you: Alvaro Aquino 12/24/2020 8:57 AM Signed Pt is in [facility]. Copat order faxed to [phone] Alvaro Aquino Allergies As of Date: 12/24/2020 (No Known Allergies) Date Reviewed: 12/01/2020 Reviewed by: Keila Dallas LPN - Fully Assessed Reason for Visit: Patient Update [1234] Prescriptions as of 12/24/2020 Sig: CASPOFUNGIN 50 MG INTRAVENOUS* Inject 50 mg intravenously on* Patient not taking: Reported on 12/01/2020 MICAFUNGIN 100 MG INTRAVENOUS* Inject 100 mg intravenously o* GABAPENTIN 100 MG CAPSULE Take 2 capsules by mouth ever* METOPROLOL SUCCINATE ER 25 MG* Take 3 tablets by mouth once * ASCORBIC ACID (VITAMIN C) 500* Take 1 tablet by mouth twice * FERROUS SULFATE 325 MG (65 MG* Take 1 tablet by mouth once d* INSULIN GLARGINE (U-100) 100 * Inject 30 Units subcutaneousl* INSULIN LISPRO (U-100) 100 UN* Inject 10 Units subcutaneousl* GLUCAGON HCL 1 MG/ML SOLUTION* Inject 1 mg intramuscularly a* DEXTROSE 40 % ORAL GEL Take 15 g by mouth as needed. POLYETHYLENE GLYCOL 3350 17 G* Take 1 Packet by mouth once d* SENNOSIDES 8.6 MG-DOCUSATE SO* Take 1 tablet by mouth twice * BISACODYL 10 MG RECTAL SUPPOS* 1 Suppository by RECTAL route* ASPIRIN 81 MG CHEWABLE TABLET Take 1 tablet by mouth once d* POTASSIUM CHLORIDE ER 20 MEQ * Take 1 tablet by mouth once d* ATORVASTATIN 40 MG TABLET Take 1 tablet by mouth daily * FUROSEMIDE 40 MG TABLET Take 1 tablet by mouth once d* LISINOPRIL 5 MG TABLET Take 1 tablet by mouth once d* METFORMIN 500 MG TABLET Take 1 tablet by mouth twice * SITAGLIPTIN 100 MG TABLET Take 1 tablet by mouth once d* ACETAMINOPHEN 500 MG TABLET Take 2 tablets by mouth every* Patient taking differently: Take 500 mg by mouth once tatyana* Problem List As Of Date 12/24/2020 Noted Resolved SEBACEOUS CYST [L72.3] 10/02/2008 Peripheral vascular disease, unspecified (HCC) *01/28/2009 ASA CLASS III [1003] 03/05/2009 Other Acute Postoperative Pain [G89.18] 03/31/2009 Generalized and Unspecified Atherosclerosis [I7*01/05/2010 SUMMARY [V999.95] 01/05/2010 Long-term (current) use of 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s, INR *01/03/2010 NSTEMI (non-ST elevated myocardial infarction) *04/26/2020 Nicotine use disorder, F17.2 [F17.200] 05/02/2020 Nonrheumatic aortic valve stenosis [I35.0] 05/11/2020 S/P AVR (aortic valve replacement) [Z95.2] 05/11/2020 S/P CABG x 2 [Z95.1] 05/11/2020 Acute on chronic systolic CHF (congestive heart*05/11/2020 Acute postoperative anemia due to expected bloo*05/11/2020 Leukocytosis [D72.829] 05/01/2020 05/10/2020 Coagulopathy (HCC) [D68.9] 05/01/2020 05/10/2020 Type 2 diabetes mellitus (HCC) [E11.9] 04/26/2020 Sternal wound infection [S21.101A, L08.9] 09/21/2020 Wound dehiscence [T81.30XA] 11/14/2020 Encounter Status:Closed by ALVARO AQUINO on 12/24/20 [facility] 12-17-2020 CNPN Telephone (INFDAK) SKY CORONEL ([id number]) 1950 M Date Time Provider Department 12/17/20 SHERRY MACEDO During your visit today, we recorded the following information about you: Alvaro Aquino 12/17/2020 8:50 AM Signed Pharmacist Moi asking for new Copat order. The order he has does not have lab orders. We can call Moi at [phone]. Please fax orders to [phone] Thank you Alvaro Macedo MD 12/17/2020 9:52 AM Signed Have updated the copat order. thanks Alvaro Aquino 12/17/2020 10:25 AM Signed Orders faxed to Moi. I called in lab orders to Moi Aquino Allergies As of Date: 12/17/2020 (No Known Allergies) Date Reviewed: 12/01/2020 Reviewed by: Keila Dallas LPN - Fully Assessed Reason for Visit: Orders [681] Prescriptions as of 12/17/2020 Sig: CASPOFUNGIN 50 MG INTRAVENOUS* Inject 50 mg intravenously on* Patient not taking: Reported on 12/01/2020 MICAFUNGIN 100 MG INTRAVENOUS* Inject 100 mg intravenously o* GABAPENTIN 100 MG CAPSULE Take 2 capsules by mouth ever* METOPROLOL SUCCINATE ER 25 MG* Take 3 tablets by mouth once * ASCORBIC ACID (VITAMIN C) 500* Take 1 tablet by mouth twice * FERROUS SULFATE 325 MG (65 MG* Take 1 tablet by mouth once d* INSULIN GLARGINE (U-100) 100 * Inject 30 Units subcutaneousl* INSULIN LISPRO (U-100) 100 UN* Inject 10 Units subcutaneousl* GLUCAGON HCL 1 MG/ML SOLUTION* Inject 1 mg intramuscularly a* DEXTROSE 40 % ORAL GEL Take 15 g by mouth as needed. POLYETHYLENE GLYCOL 3350 17 G* Take 1 Packet by mouth once d* SENNOSIDES 8.6 MG-DOCUSATE SO* Take 1 tablet by mouth twice * BISACODYL 10 MG RECTAL SUPPOS* 1 Suppository by RECTAL route* ASPIRIN 81 MG CHEWABLE TABLET Take 1 tablet by mouth once d* POTASSIUM CHLORIDE ER 20 MEQ * Take 1 tablet by mouth once d* ATORVASTATIN 40 MG TABLET Take 1 tablet by mouth daily * FUROSEMIDE 40 MG TABLET Take 1 tablet by mouth once d* LISINOPRIL 5 MG TABLET Take 1 tablet by mouth once d* METFORMIN 500 MG TABLET Take 1 tablet by mouth twice * SITAGLIPTIN 100 MG TABLET Take 1 tablet by mouth once d* ACETAMINOPHEN 500 MG TABLET Take 2 tablets by mouth every* Patient taking differently: Take 500 mg by mouth once tatyana* Problem List As Of Date 12/17/2020 Noted Resolved SEBACEOUS CYST [L72.3] 10/02/2008 Peripheral vascular disease, unspecified (HCC) *01/28/2009 ASA CLASS III [1003] 03/05/2009 Other Acute Postoperative Pain [G89.18] 03/31/2009 Generalized and Unspecified Atherosclerosis [I7*01/05/2010 SUMMARY [V999.95] 01/05/2010 Long-term (current) use of 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s, INR *01/03/2010 NSTEMI (non-ST elevated myocardial infarction) *04/26/2020 Nicotine use disorder, F17.2 [F17.200] 05/02/2020 Nonrheumatic aortic valve stenosis [I35.0] 05/11/2020 S/P AVR (aortic valve replacement) [Z95.2] 05/11/2020 S/P CABG x 2 [Z95.1] 05/11/2020 Acute on chronic systolic CHF (congestive heart*05/11/2020 Acute postoperative anemia due to expected bloo*05/11/2020 Leukocytosis [D72.829] 05/01/2020 05/10/2020 Coagulopathy (HCC) [D68.9] 05/01/2020 05/10/2020 Type 2 diabetes mellitus (HCC) [E11.9] 04/26/2020 Sternal wound infection [S21.101A, L08.9] 09/21/2020 Wound dehiscence [T81.30XA] 11/14/2020 Encounter Status:Closed by [facility]EDO on 12/17/[address] [facility] [address]-03[facility]2020 CNPN [facility]INFDAK[facility] SKY CORONEL ([id number]) 1950 Date Time Provider Department 11/28/20 FORTINO VANEGAS III During your visit today, we recorded the following information about you: Nat Alvarez Ma 11/28/2020 12:02 PM Signed Bharti ([phone]) from [facility] in asking if there is a cheaper alternative for the micafungin. She states it is too expensive. If there is not a cheaper option could you please write a note stating it is medically necessary for the patient? Please advise, Nat Vanegas III, MD 11/28/2020 1:11 PM Signed No there is not a better alternative. He has Sebastian glabrata. The cheap alternative of fluconazole will not be effective for this. If they can get anidulafungin or caspofungin for cheaper than those would be effective. Other alternatives not mentioned above are too toxic so not going to consider them as options. 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 SIGNATURE: Fortino Vanegas III, MD PATIENT NAME: Sky Coronel DATE: November 28, 2020 TIME: 1:11 PM PAGER/CONTACT #: [phone] Nat Alvarez Ma 11/28/2020 1:34 PM Signed Bharti notified and faxed (Faxed #: [phone]) Nat Aquino 12/01/2020 10:58 AM Signed Pt's nurse Annabelle calling for pt. She states Caspofungin would be cheaper for the patient. Please fax written order to [phone] Thank you Alvaro Vanegas III, MD 12/01/2020 11:47 AM Signed COPAT updated to caspofungin. Will cc: Hugojanette since she will be following the patient. Nat Alvarez Ma 12/01/2020 12:20 PM Signed Please update CoPat order reflecting medication name Nat Vanegas III, MD 12/01/2020 12:30 PM Signed Whoops. Fixed it. Nat Alvarez Ma 12/01/2020 1:02 PM Signed Faxed to Bhatri ([phone]) Allergies As of Date: 11/28/2020 (No Known Allergies) Date Reviewed: 11/20/2020 Reviewed by: Ijeoma Giang RN - Fully Assessed Reason for Visit: Medication Problem [65] Prescriptions as of 11/28/2020 Sig: GABAPENTIN 100 MG CAPSULE Take 2 capsules by mouth ever* METOPROLOL SUCCINATE ER 25 MG* Take 3 tablets by mouth once * ASCORBIC ACID (VITAMIN C) 500* Take 1 tablet by mouth twice * CEPHALEXIN 500 MG CAPSULE Take 1 capsule by mouth every* FERROUS SULFATE 325 MG (65 MG* Take 1 tablet by mouth once d* TRAMADOL 50 MG TABLET Take 1 tablet by mouth every * INSULIN GLARGINE (U-100) 100 * Inject 30 Units subcutaneousl* INSULIN LISPRO (U-100) 100 UN* Inject 10 Units subcutaneousl* X MICAFUNGIN IVPB 100 MG IN D5W* Inject 100 mg intravenously e* GLUCAGON HCL 1 MG/ML SOLUTION* Inject 1 mg intramuscularly a* DEXTROSE 40 % ORAL GEL Take 15 g by mouth as needed. POLYETHYLENE GLYCOL 3350 17 G* Take 1 Packet by mouth once d* SENNOSIDES 8.6 MG-DOCUSATE SO* Take 1 tablet by mouth twice * BISACODYL 10 MG RECTAL SUPPOS* 1 Suppository by RECTAL route* ASPIRIN 81 MG CHEWABLE TABLET Take 1 tablet by mouth once d* POTASSIUM CHLORIDE ER 20 MEQ * Take 1 tablet by mouth once d* ATORVASTATIN 40 MG TABLET Take 1 tablet by mouth daily * FUROSEMIDE 40 MG TABLET Take 1 tablet by mouth once d* LISINOPRIL 5 MG TABLET Take 1 tablet by mouth once d* METFORMIN 500 MG TABLET Take 1 tablet by mouth twice * SITAGLIPTIN 100 MG TABLET Take 1 tablet by mouth once d* ACETAMINOPHEN 500 MG TABLET Take 2 tablets by mouth every* Patient taking differently: Take 500 mg by mouth once tatyana* Problem List As Of Date 11/28/2020 Noted Resolved SEBACEOUS CYST [L72.3] 10/02/2008 Peripheral vascular disease, unspecified (HCC) *01/28/2009 ASA CLASS III [1003] 03/05/2009 Other Acute Postoperative Pain [G89.18] 03/31/2009 Generalized and Unspecified Atherosclerosis [I7*01/05/2010 SUMMARY [V999.95] 01/05/2010 Long-term (current) use of 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s, INR *01/03/2010 NSTEMI (non-ST elevated myocardial infarction) *04/26/2020 Nicotine use disorder, F17.2 [F17.200] 05/02/2020 Nonrheumatic aortic valve stenosis [I35.0] 05/11/2020 S/P AVR (aortic valve replacement) [Z95.2] 05/11/2020 S/P CABG x 2 [Z95.1] 05/11/2020 Acute on chronic systolic CHF (congestive heart*05/11/2020 Acute postoperative anemia due to expected bloo*05/11/2020 Leukocytosis [D72.829] 05/01/2020 05/10/2020 Coagulopathy (HCC) [D68.9] 05/01/2020 05/10/2020 Type 2 diabetes mellitus (HCC) [E11.9] 04/26/2020 Sternal wound infection [S21.101A, L08.9] 09/21/2020 Wound dehiscence [T81.30XA] 11/14/2020 Encounter Status:Closed by NAT ALVAREZ MA on 11/28/[address] [facility] Basic metabolic 2000 panelon 11-24-2020 Anion gap [Moles/Vol] 10 mmol/L Normal 9-18 [facility] Comment on above: Order Comment: Speci men Type: BLOOD SPECIMEN Performed By: #### 1 9123-9, 90351-9 ####[facility]ORATORYCLIA [id number] [place] [address] Calcium [Mass/Vol] 9.1 mg/dL Normal 8.5-10.2 [facility] Comment on above: Order Comment: Speci men Type: BLOOD SPECIMEN Performed By: #### 1 9123-9, 44595-3 ####[facility]ATORYCLIA [id number] [place] [address] Chloride [Moles/Vol] 102 mmol/L Normal 97-105 [facility] Comment on above: Order Comment: Speci men Type: BLOOD SPECIMEN Performed By: #### 1 9123-9, 20418-8 ####[facility]ATORYCLIA [id number] [place] [address] CO2 [Moles/Vol] 24 mmol/L Normal 22-30 [facility] Comment on above: Order Comment: Speci men Type: BLOOD SPECIMEN Performed By: #### 1 9123-9, ####[facility]ORATORYCLIA [id number] [place] [address] Creatinine [Mass/Vol] 0.58 mg/dL Low 0.73-1.22 [facility] Comment on above: Order Comment: Speci men Type: BLOOD SPECIMEN Performed By: #### 1 9123-9, 40586-0 ####[facility]ATORYCLIA [id number] [place] [address] GFR/1.73 sq M.predicted MDRD (S/P/Bld) [Vol rate/Area] mL/min/{1.73_m2} Normal [facility] Comment on above: Order Comment: Speci men Type: BLOOD SPECIMEN Result Comment: >60e GFR (Estimated GFR) Units of measure: mL/min/1.73 meters squaredeGFR is derived from the reexpressed MDRD Study equation using the following parameters: serum creatinine, age, gender and race. The creatinine assay has been calibrated to be traceable to IDMS. An eGFR <60 mL/min/1.73m2 for >3 months is consistent with chronic kidney disease. Refer to KDOQI guidelines for clinical interpretation. In patients with unstable renal function, e.g. those with acute kidney injury, the eGFR may not accurately reflect actual GFR. Performed By: #### 1 9123-9, 48714-4 ####[facility]ATORYCLIA [id number] [place] [address] Glucose [Mass/Vol] 184 mg/dL High 74-99 [facility] Comment on above: Order Comment: Speci men Type: BLOOD SPECIMEN Result Comment: The [place] Diabetes Association (ADA) provides guidance for cutoff values for fasting glucose and random glucose. The ADA defines fasting as no caloric intake for at least 8 hours. Fasting plasma glucose results between 100 to 125 mg/dL indicate increased risk for diabetes (prediabetes).Fasting plasma glucose results greater than or equal to 126 mg/dL meet the criteria for diagnosis of diabetes. In the absence of unequivocal hyperglycemia, results should be confirmed by repeat testing. In a patient with classic symptoms of hyperglycemia or hyperglycemic crisis, random plasma glucose results greater than or equal to 200 mg/dL meet the criteria for diagnosis of diabetes.Reference: Standards of Medical Care in Diabetes 2016, [place] Diabetes Association. Diabetes Care. 2016.39(Suppl 1). Performed By: #### 1 91, 48939-6 ####[facility]ATORYCLIA [id number] [place] [address] Potassium [Moles/Vol] 4.3 mmol/L Normal 3.7-5.1 [facility] Comment on above: Order Comment: Speci men Type: BLOOD SPECIMEN Performed By: #### 1 91, 03737-6 ####[facility]ATORYCLIA [id number] [place] [address] Sodium [Moles/Vol] 136 mmol/L Normal 136-144 [facility] Comment on above: Order Comment: Speci men Type: BLOOD SPECIMEN Performed By: #### 1 91, 99850-0 ####[facility]ORYCLIA [id number] [place] [address] Urea nitrogen [Mass/Vol] 23 mg/dL Normal 9-24 [facility] Comment on above: Order Comment: Speci men Type: BLOOD SPECIMEN Performed By: #### 1 9123-9, 31461-6 ####[facility]ORYCLIA [id number] [place] [address] CASE MANAGEMon 11-24-2020 CASE MANAGEM Normal [facility] CASE MANAGEM Normal [facility] CNDSon 11-24-2020 CNDS Normal [facility] CONSULT PROGon 11-24-2020 CONSULT PROG Normal [facility] CONSULT PROG Normal [facility] CONSULT PROG Normal [facility] CONSULT PROG Normal [facility] CONSULT PROG Normal [facility] IRON + TIBCon 11-24-2020 Iron [Mass/Vol] 14 ug/dL Low 41-186 [facility] Comment on above: Order Comment: Speci men Type: BLOOD SPECIMEN Performed By: #### I ELLIOT ####[facility]ORATORYCLIA [id number] [place] [address] Iron binding capacity [Mass/Vol] 324 ug/dL Normal 232-386 [facility] Comment on above: Order Comment: Speci men Type: BLOOD SPECIMEN Performed By: #### I ELLIOT ####[facility]ORATORYCLIA [id number] [place] [address] Iron saturation [Mass fraction] 4 % Low 15-57 [facility] Comment on above: Order Comment: Speci men Type: BLOOD SPECIMEN Performed By: #### I ELLIOT ####[facility]ORYCLIA [id number] [place] [address] Magnesium SerPl-mCncon 11-24 Magnesium [Mass/Vol] 1.7 mg/dL Normal 1.7-2.3 [facility] Comment on above: Order Comment: Speci men Type: BLOOD SPECIMEN Performed By: #### 1 9123-9, 71530-7 ####[facility]ORYCLIA [id number] [place] [address] NUTRITIONon 11-24-2020 NUTRITION Normal [facility] PT panel Coag (PPP)on 2020 INR Coag (PPP) [Relative time] 2.2 {INR} High 0.9-1.3 [facility] Comment on above: Order Comment: Speci men Type: BLOOD SPECIMEN Result Comment: Aislinn min K Antagonist (VKA) Therapeutic Range: INR 2 to 3 (Target INR of 2.5)Note: For patients treated with VKA drugs, such as warfarin, the [place] [employer] 2012 Guideline recommends a therapeutic INR range of 2 to 3 (target INR of 2.5). This recommendation includes high-risk patients with antiphospholipid syndrome with previous arterial or venous thromboembolism, current-generation mechanical or bioprosthetic aortic heart valve replacement.Note: Patients with mechanical aortic valve replacement and additional risk factors for thromboembolic events (atrial fibrillation, previous thromboembolism, LV dysfunction, hypercoagulable conditions) or an older generation mechanical AVR (i.e., ball in-Cage) or any mechanical MVR should have a INR therapeutic range of 2.5 to 3.5 (target INR of 3).Nan GH, et al. Chest 2012, 141:7S-47SNishimura RA, et al. [facility] 2017, 70: 252-289 Performed By: #### 3 4528-0 ####[facility]ORATORYCLIA [id number] [place] [address] PT Coag (PPP) [Time] 21.9 s High 9.7-13.0 [facility] Comment on above: Order Comment: Speci men Type: BLOOD SPECIMEN Performed By: #### 3 4528-0 ####[facility]ORATORYCLIA [id number] [place] [address] SARS-CoV-2 RNA Resp Ql SCAR+p robeon 11-24-2020 SARS-CoV-2 (COVID-19) RNA SCAR+probe Ql (Resp) COVID 19 RESULT: SARS-CoV-2 (Agent of COVID-19) Not Detected by PCR. This test has been authorized by FDA under an Emergency Use Authorization (EUA) Normal [facility] Comment on above: Performed By: #### 9 4500-6 ####[facility]ORATORYCLIA [id number] [place] [address] CONSULT PROGon 11-23-2020 CONSULT PROG Normal [facility] CONSULT PROG Normal [facility] PT panel Coag (PPP)on 2020 INR Coag (PPP) [Relative time] 2.1 {INR} High 0.9-1.3 [facility] Comment on above: Order Comment: Speci men Type: BLOOD SPECIMEN Result Comment: Aislinn min K Antagonist (VKA) Therapeutic Range: INR 2 to 3 (Target INR of 2.5)Note: For patients treated with VKA drugs, such as warfarin, the [place] [employer] 2012 Guideline recommends a therapeutic INR range of 2 to 3 (target INR of 2.5). This recommendation includes high-risk patients with antiphospholipid syndrome with previous arterial or venous thromboembolism, current-generation mechanical or bioprosthetic aortic heart valve replacement.Note: Patients with mechanical aortic valve replacement and additional risk factors for thromboembolic events (atrial fibrillation, previous thromboembolism, LV dysfunction, hypercoagulable conditions) or an older generation mechanical AVR (i.e., ball in-Cage) or any mechanical MVR should have a INR therapeutic range of 2.5 to 3.5 (target INR of 3).Nan GH, et al. Chest 2012, 141:7S-47SJessica BARRERA, et al. [facility] 2017, 70: 252-289 Performed By: #### 3 4528-0 ####[facility]ORATORYCLIA [id number] [place] [address] PT Coag (PPP) [Time] 21.3 s High 9.7-13.0 [facility] Comment on above: Order Comment: Speci men Type: BLOOD SPECIMEN Performed By: #### 3 4528-0 ####[facility]ORATORYCLIA [id number] [place] [address] THERAPY NTon 11-23-2020 THERAPY NT Normal [facility] THERAPY NT Normal [facility] CONSULT PROGon 11-22-2020 CONSULT PROG Normal [facility] CONSULT PROG Normal [facility] PT panel Coag (PPP)on 2020 INR Coag (PPP) [Relative time] 1.5 {INR} High 0.9-1.3 [facility] Comment on above: Order Comment: Speci men Type: BLOOD SPECIMEN Result Comment: Aislinn min K Antagonist (VKA) Therapeutic Range: INR 2 to 3 (Target INR of 2.5)Note: For patients treated with VKA drugs, such as warfarin, the [place] [employer] 2012 Guideline recommends a therapeutic INR range of 2 to 3 (target INR of 2.5). This recommendation includes high-risk patients with antiphospholipid syndrome with previous arterial or venous thromboembolism, current-generation mechanical or bioprosthetic aortic heart valve replacement.Note: Patients with mechanical aortic valve replacement and additional risk factors for thromboembolic events (atrial fibrillation, previous thromboembolism, LV dysfunction, hypercoagulable conditions) or an older generation mechanical AVR (i.e., ball in-Cage) or any mechanical MVR should have a INR therapeutic range of 2.5 to 3.5 (target INR of 3).Nan GH, et al. Chest 2012, 141:7S-47SNishimura RA, et al. [facility] 2017, 70: 252-289 Performed By: #### 3 4528-0 ####[facility] LABORATORYCLIA [id number] [place] [address] PT Coag (PPP) [Time] 15.6 s High 9.7-13.0 [facility] Comment on above: Order Comment: Speci men Type: BLOOD SPECIMEN Performed By: #### 3 4528-0 ####[facility]ORATORYCLIA [id number] [place] [address] CASE MANAGEMon 11-21-2020 CASE MANAGEM Normal [facility] CBC W Auto Differential pane l (Bld)on 11-21-2020 Basophils (Bld) [#/Vol] 0.04 10*3/uL Normal <0.11 [facility] Comment on above: Order Comment: Speci men Type: BLOOD SPECIMEN Performed By: #### 5 7021-8 ####[facility]ORATORYCLIA [id number] [place] [id number] Basophils/100 WBC (Bld) 0.6 % Normal [facility] Comment on above: Order Comment: Speci men Type: BLOOD SPECIMEN Performed By: #### 5 7021-8 ####[facility]ORYCLIA [id number] [place] [address] Differential cell count method Nom (Bld) Auto Normal [facility] Comment on above: Order Comment: Speci men Type: BLOOD SPECIMEN Performed By: #### 5 7021-8 ####[facility]ORYCLIA [id number] [place] [address] Eosinophils (Bld) [#/Vol] 0.20 10*3/uL Normal <0.46 [facility] Comment on above: Order Comment: Speci men Type: BLOOD SPECIMEN Performed By: #### 5 7021-8 ####[facility]ORYCLIA [id number] [place] [address] Eosinophils/100 WBC (Bld) 3.2 % Normal [facility] Comment on above: Order Comment: Speci men Type: BLOOD SPECIMEN Performed By: #### 5 7021-8 ####[facility]ORATORYCLIA [id number] [place] [address] Erythrocyte distribution width (RBC) [Ratio] 16.1 % High 11.5-15.0 [facility] Comment on above: Order Comment: Speci men Type: BLOOD SPECIMEN Performed By: #### 5 7021-8 ####[facility]ORYCLIA [id number] [place] [address] Hematocrit (Bld) [Volume fraction] 27.1 % Low 39.0-51.0 [facility] Comment on above: Order Comment: Speci men Type: BLOOD SPECIMEN Performed By: #### 5 7021-8 ####[facility]ORYCLIA [id number] [place] [address] Hemoglobin (Bld) [Mass/Vol] 8.3 g/dL Low 13.0-17.0 [facility] Comment on above: Order Comment: Speci men Type: BLOOD SPECIMEN Performed By: #### 5 7021-8 ####[facility]ORYCLIA [id number] [place] [address] IMMATURE GRAN % 1.0 % Normal [facility] Comment on above: Order Comment: Speci men Type: BLOOD SPECIMEN Performed By: #### 5 7021-8 ####[facility]ORYCLIA [id number] [place] [address] IMMATURE GRAN ABS 0.06 k/uL Normal <0.10 [facility] Comment on above: Order Comment: Speci men Type: BLOOD SPECIMEN Performed By: #### 5 7021-8 ####[facility]ATORYCLIA [id number] [place] [address] Lymphocytes (Bld) [#/Vol] 1.76 10*3/uL Normal 1.00-4.00 [facility] Comment on above: Order Comment: Speci men Type: BLOOD SPECIMEN Performed By: #### 5 7021-8 ####[facility]ORATORYCLIA [id number] [place] [address] Lymphocytes/100 WBC (Bld) 27.9 % Normal [facility] Comment on above: Order Comment: Speci men Type: BLOOD SPECIMEN Performed By: #### 5 7021-8 ####[facility]ORATORYCLIA [id number] [place] [address] MCH (RBC) [Entitic mass] 24.8 pg Low 26.0-34.0 [facility] Comment on above: Order Comment: Speci men Type: BLOOD SPECIMEN Performed By: #### 5 7021-8 ####[facility]ORYCLIA [id number] [place] [address] MCHC (RBC) [Mass/Vol] 30.6 g/dL Normal 30.5-36.0 [facility] Comment on above: Order Comment: Speci men Type: BLOOD SPECIMEN Performed By: #### 5 7021-8 ####[facility]ORYCLIA [id number] [place] [address] MCV (RBC) [Entitic vol] 80.9 fL Normal 80.0-100.0 [facility] Comment on above: Order Comment: Speci men Type: BLOOD SPECIMEN Performed By: #### 5 7021-8 ####[facility]ATORYCLIA [id number] [place] [address] Monocytes (Bld) [#/Vol] 0.71 10*3/uL Normal <0.87 [facility] Comment on above: Order Comment: Speci men Type: BLOOD SPECIMEN Performed By: #### 5 7021-8 ####[facility]ORYCLIA [id number] [place] [address] Monocytes/100 WBC (Bld) 11.3 % Normal [facility] Comment on above: Order Comment: Speci men Type: BLOOD SPECIMEN Performed By: #### 5 7021-8 ####[facility]ORYCLIA [id number] [place] [address] Neutrophils (Bld) [#/Vol] 3.53 10*3/uL Normal 1.45-7.50 [facility] Comment on above: Order Comment: Speci men Type: BLOOD SPECIMEN Performed By: #### 5 7021-8 ####[facility]ATORYCLIA [id number] [place] [address] Neutrophils/100 WBC (Bld) 56.0 % Normal [facility] Comment on above: Order Comment: Speci men Type: BLOOD SPECIMEN Performed By: #### 5 7021-8 ####[facility]ATORYCLIA [id number] [place] [address] Nucleated RBC (Bld) [#/Vol] 10*3/uL Normal <0.01 [facility] Comment on above: Order Comment: Speci men Type: BLOOD SPECIMEN Performed By: #### 5 7021-8 ####[facility]ORATORYCLIA [id number] [place] [address] Nucleated RBC/100 WBC (Bld) [Ratio] 0.0 /100 WBC Normal 0.0 [facility] Comment on above: Order Comment: Speci men Type: BLOOD SPECIMEN Performed By: #### 5 7021-8 ####[facility]ATORYCLIA [id number] [place] [address] Platelet mean volume (Bld) [Entitic vol] 9.9 fL Normal 9.0-12.7 [facility] Comment on above: Order Comment: Speci men Type: BLOOD SPECIMEN Performed By: #### 5 7021-8 ####[facility]ORATORYCLIA [id number] [place] [address] Platelets (Bld) [#/Vol] 378 10*3/uL Normal 150-400 [facility] Comment on above: Order Comment: Speci men Type: BLOOD SPECIMEN Performed By: #### 5 7021-8 ####[facility]ORATORYCLIA [id number] [place] [address] RBC (Bld) [#/Vol] 3.35 10*6/uL Low 4.20-6.00 [facility] Comment on above: Order Comment: Speci men Type: BLOOD SPECIMEN Performed By: #### 5 7021-8 ####[facility]ORATORYCLIA [id number] [place] [address] WBC (Bld) [#/Vol] 6.30 10*3/uL Normal 3.70-11.00 [facility] Comment on above: Order Comment: Speci men Type: BLOOD SPECIMEN Performed By: #### 5 7021-8 ####[facility]ORATORYCLIA [id number] [place] [address] CONSULT PROGon 11-21-2020 CONSULT PROG Normal [facility] CONSULT PROG Normal [facility] CONSULT PROG Normal [facility] PT panel Coag (PPP)on 2020 INR Coag (PPP) [Relative time] 1.2 {INR} Normal 0.9-1.3 [facility] Comment on above: Order Comment: Speci men Type: BLOOD SPECIMEN Result Comment: Aislinn min K Antagonist (VKA) Therapeutic Range: INR 2 to 3 (Target INR of 2.5)Note: For patients treated with VKA drugs, such as warfarin, the [place] [employer] 2012 Guideline recommends a therapeutic INR range of 2 to 3 (target INR of 2.5). This recommendation includes high-risk patients with antiphospholipid syndrome with previous arterial or venous thromboembolism, current-generation mechanical or bioprosthetic aortic heart valve replacement.Note: Patients with mechanical aortic valve replacement and additional risk factors for thromboembolic events (atrial fibrillation, previous thromboembolism, LV dysfunction, hypercoagulable conditions) or an older generation mechanical AVR (i.e., ball in-Cage) or any mechanical MVR should have a INR therapeutic range of 2.5 to 3.5 (target INR of 3).Nan KAPADIA, et al. Chest 2012, 141:7S-47SNishellis RA, et al. [facility] 2017, 70: 252-289 Performed By: #### 3 4528-0 ####[facility]ORATORYCLIA [id number] [place] [address] PT Coag (PPP) [Time] 12.2 s Normal 9.7-13.0 [facility] Comment on above: Order Comment: Speci men Type: BLOOD SPECIMEN Performed By: #### 3 4528-0 ####[facility]ORATORYCLIA [id number] [place] [address] THERAPY NTon 11-21-2020 THERAPY NT Normal [facility] ALLIED HEALTHon 11-20-2020 ALLIED HEALTH Normal [facility] CBC panel Auto (Bld)on 11-20 Erythrocyte distribution width (RBC) [Ratio] 16.0 % High 11.5-15.0 [facility] Comment on above: Order Comment: Speci men Type: BLOOD SPECIMEN Performed By: #### 5 8410-2 ####[facility]ORATORYCLIA [id number] [place] [address] Hematocrit (Bld) [Volume fraction] 26.4 % Low 39.0-51.0 [facility] Comment on above: Order Comment: Speci men Type: BLOOD SPECIMEN Performed By: #### 5 8410-2 ####[facility]ORATORYCLIA [id number] [place] [address] Hemoglobin (Bld) [Mass/Vol] 7.7 g/dL Low 13.0-17.0 [facility] Comment on above: Order Comment: Speci men Type: BLOOD SPECIMEN Performed By: #### 5 8410-2 ####[facility]ORATORYCLIA [id number] [place] [address] MCH (RBC) [Entitic mass] 24.3 pg Low 26.0-34.0 [facility] Comment on above: Order Comment: Speci men Type: BLOOD SPECIMEN Performed By: #### 5 8410-2 ####[facility]ORATORYCLIA [id number] [place] [address] MCHC (RBC) [Mass/Vol] 29.2 g/dL Low 30.5-36.0 [facility] Comment on above: Order Comment: Speci men Type: BLOOD SPECIMEN Performed By: #### 5 8410-2 ####[facility]ATORYCLIA [id number] [place] [address] MCV (RBC) [Entitic vol] 83.3 fL Normal 80.0-100.0 [facility] Comment on above: Order Comment: Speci men Type: BLOOD SPECIMEN Performed By: #### 5 8410-2 ####[facility]ATORYCLIA [id number] [place] [address] Nucleated RBC (Bld) [#/Vol] 10*3/uL Normal <0.01 [facility] Comment on above: Order Comment: Speci men Type: BLOOD SPECIMEN Performed By: #### 5 8410-2 ####[facility]ATORYCLIA [id number] [place] [address] Platelet mean volume (Bld) [Entitic vol] 10.0 fL Normal 9.0-12.7 [facility] Comment on above: Order Comment: Speci men Type: BLOOD SPECIMEN Performed By: #### 5 8410-2 ####[facility]ORATORYCLIA [id number] [place] [address] Platelets (Bld) [#/Vol] 355 10*3/uL Normal 150-400 [facility] Comment on above: Order Comment: Speci men Type: BLOOD SPECIMEN Performed By: #### 5 8410-2 ####[facility]ATORYCLIA [id number] [place] [address] RBC (Bld) [#/Vol] 3.17 10*6/uL Low 4.20-6.00 [facility] Comment on above: Order Comment: Speci men Type: BLOOD SPECIMEN Performed By: #### 5 8410-2 ####[facility]ATORYCLIA [id number] [place] [address] WBC (Bld) [#/Vol] 6.50 10*3/uL Normal 3.70-11.00 [facility] Comment on above: Order Comment: Speci men Type: BLOOD SPECIMEN Performed By: #### 5 8410-2 ####[facility]ORATORYCLIA [id number] [place] [address] CONSULT PROGon 11-20-2020 CONSULT PROG Normal [facility] CONSULT PROG Normal [facility] CONSULT PROG Normal [facility] CONSULT PROG Normal [facility] Magnesium SerPl-mCncon 11-20 Magnesium [Mass/Vol] 1.9 mg/dL Normal 1.7-2.3 [facility] Comment on above: Order Comment: Speci men Type: BLOOD SPECIMEN Performed By: #### 1 9123-9 ####[facility]ORATORYCLIA [id number] [place] [address] PT panel Coag (PPP)on 2020 INR Coag (PPP) [Relative time] 1.1 {INR} Normal 0.9-1.3 [facility] Comment on above: Order Comment: Speci men Type: BLOOD SPECIMEN Result Comment: Aislinn min K Antagonist (VKA) Therapeutic Range: INR 2 to 3 (Target INR of 2.5)Note: For patients treated with VKA drugs, such as warfarin, the [place] [employer] 2012 Guideline recommends a therapeutic INR range of 2 to 3 (target INR of 2.5). This recommendation includes high-risk patients with antiphospholipid syndrome with previous arterial or venous thromboembolism, current-generation mechanical or bioprosthetic aortic heart valve replacement.Note: Patients with mechanical aortic valve replacement and additional risk factors for thromboembolic events (atrial fibrillation, previous thromboembolism, LV dysfunction, hypercoagulable conditions) or an older generation mechanical AVR (i.e., ball in-Cage) or any mechanical MVR should have a INR therapeutic range of 2.5 to 3.5 (target INR of 3).Nan KAPADIA, et al. Chest 2012, 141:7S-47SNishellis RA, et al. [facility] 2017, 70: 252-289 Performed By: #### 3 4528-0 ####[facility]ORATORYCLIA [id number] [place] [address] PT Coag (PPP) [Time] 11.4 s Normal 9.7-13.0 [facility] Comment on above: Order Comment: Speci men Type: BLOOD SPECIMEN Performed By: #### 3 4528-0 ####[facility]ORATORYCLIA [id number] [place] [address] STAPH AUREUS PCRon S. aureus and MRSA panel SCAR+probe (Nose) Abnormal Negative [facility] Comment on above: Order Comment: Speci men Type: SWAB OF INTERNAL NOSE Result Comment: Posi tive for Staphylococcus aureus by PCR.Negative for MRSA by PCR Performed By: #### S APCR ####[facility]ATORYCLIA [id number] [place] [address] THERAPY NTon 11-20-2020 THERAPY NT Normal [facility] XR CHEST 2V FRONTAL/LATon XR CHEST 2V FRONTAL/LAT Normal [facility] ALLIED HEALTHon 11-19-2020 ALLIED HEALTH Normal [facility] Basic metabolic 2000 panelon 11-19-2020 Anion gap [Moles/Vol] 10 mmol/L Normal 9-18 [facility] Comment on above: Order Comment: Speci men Type: BLOOD SPECIMEN Performed By: #### 1 9123-9, 48199-7 ####[facility]ATORYCLIA [id number] [place] [address] Calcium [Mass/Vol] 8.3 mg/dL Low 8.5-10.2 [facility] Comment on above: Order Comment: Speci men Type: BLOOD SPECIMEN Performed By: #### 1 91239, 47331-0 ####[facility]ATORYCLIA [id number] [place] [address] Chloride [Moles/Vol] 106 mmol/L High 97-105 [facility] Comment on above: Order Comment: Speci men Type: BLOOD SPECIMEN Performed By: #### 1 91239, 38926-4 ####[facility]ORATORYCLIA [id number] [place] [address] CO2 [Moles/Vol] 21 mmol/L Low 22-30 [facility] Comment on above: Order Comment: Speci men Type: BLOOD SPECIMEN Performed By: #### 1 91239, ####[facility]ATORYCLIA [id number] [place] [address] Creatinine [Mass/Vol] 0.68 mg/dL Low 0.73-1.22 [facility] Comment on above: Order Comment: Speci men Type: BLOOD SPECIMEN Performed By: #### 1 91239, ####[facility]ORATORYCLIA [id number] [place] [address] GFR/1.73 sq M.predicted MDRD (S/P/Bld) [Vol rate/Area] mL/min/{1.73_m2} Normal [facility] Comment on above: Order Comment: Speci men Type: BLOOD SPECIMEN Result Comment: >60e GFR (Estimated GFR) Units of measure: mL/min/1.73 meters squaredeGFR is derived from the reexpressed MDRD Study equation using the following parameters: serum creatinine, age, gender and race. The creatinine assay has been calibrated to be traceable to IDMS. An eGFR <60 mL/min/1.73m2 for >3 months is consistent with chronic kidney disease. Refer to KDOQI guidelines for clinical interpretation. In patients with unstable renal function, e.g. those with acute kidney injury, the eGFR may not accurately reflect actual GFR. Performed By: #### 1 9123-9, 09475-0 ####[facility]ORATORYCLIA [id number] [place] [address] Glucose [Mass/Vol] 93 mg/dL Normal 74-99 [facility] Comment on above: Order Comment: Speci men Type: BLOOD SPECIMEN Result Comment: The [place] Diabetes Association (ADA) provides guidance for cutoff values for fasting glucose and random glucose. The ADA defines fasting as no caloric intake for at least 8 hours. Fasting plasma glucose results between 100 to 125 mg/dL indicate increased risk for diabetes (prediabetes).Fasting plasma glucose results greater than or equal to 126 mg/dL meet the criteria for diagnosis of diabetes. In the absence of unequivocal hyperglycemia, results should be confirmed by repeat testing. In a patient with classic symptoms of hyperglycemia or hyperglycemic crisis, random plasma glucose results greater than or equal to 200 mg/dL meet the criteria for diagnosis of diabetes.Reference: Standards of Medical Care in Diabetes 2016, [place] [employer]. Diabetes Care. 2016.39(Suppl 1). Performed By: #### 1 9123-9, 48004-8 ####[facility]ORATORYCLIA [id number] [place] [address] Potassium [Moles/Vol] 4.0 mmol/L Normal 3.7-5.1 [facility] Comment on above: Order Comment: Speci men Type: BLOOD SPECIMEN Performed By: #### 1 9123-9, 46702-3 ####[facility]ATORYCLIA [id number] [place] [address] Sodium [Moles/Vol] 137 mmol/L Normal 136-144 [facility] Comment on above: Order Comment: Speci men Type: BLOOD SPECIMEN Performed By: #### 1 9123-9, 33909-4 ####[facility]ATORYCLIA [id number] [place] [address] Urea nitrogen [Mass/Vol] 19 mg/dL Normal 9-24 [facility] Comment on above: Order Comment: Speci men Type: BLOOD SPECIMEN Performed By: #### 1 9123-9, 81374-4 ####[facility]ATORYCLIA [id number] [place] [address] CASE MANAGEMon 05-05-2021 CASE MANAGEM Normal [facility] CBC panel Auto (Bld)on 11-19 Erythrocyte distribution width (RBC) [Ratio] 16.2 % High 11.5-15.0 [facility] Comment on above: Order Comment: Speci men Type: BLOOD SPECIMEN Performed By: #### 5 8410-2 ####[facility]ATORYCLIA [id number] [place] [address] Hematocrit (Bld) [Volume fraction] 25.2 % Low 39.0-51.0 [facility] Comment on above: Order Comment: Speci men Type: BLOOD SPECIMEN Performed By: #### 5 8410-2 ####[facility]ATORYCLIA [id number] [place] [address] Hemoglobin (Bld) [Mass/Vol] 7.6 g/dL Low 13.0-17.0 [facility] Comment on above: Order Comment: Speci men Type: BLOOD SPECIMEN Performed By: #### 5 8410-2 ####[facility]ATORYCLIA [id number] [place] [address] MCH (RBC) [Entitic mass] 24.5 pg Low 26.0-34.0 [facility] Comment on above: Order Comment: Speci men Type: BLOOD SPECIMEN Performed By: #### 5 8410-2 ####[facility]ATORYCLIA [id number] [place] [address] MCHC (RBC) [Mass/Vol] 30.2 g/dL Low 30.5-36.0 [facility] Comment on above: Order Comment: Speci men Type: BLOOD SPECIMEN Performed By: #### 5 8410-2 ####[facility]ATORYCLIA [id number] [place] [address] MCV (RBC) [Entitic vol] 81.3 fL Normal 80.0-100.0 [facility] Comment on above: Order Comment: Speci men Type: BLOOD SPECIMEN Performed By: #### 5 8410-2 ####[facility]ATORYCLIA [id number] [place] [address] Nucleated RBC (Bld) [#/Vol] 10*3/uL Normal <0.01 [facility] Comment on above: Order Comment: Speci men Type: BLOOD SPECIMEN Performed By: #### 5 8410-2 ####[facility]ATORYCLIA [id number] [place] [address] Platelet mean volume (Bld) [Entitic vol] 9.9 fL Normal 9.0-12.7 [facility] Comment on above: Order Comment: Speci men Type: BLOOD SPECIMEN Performed By: #### 5 8410-2 ####[facility]ORATORYCLIA [id number] [place] [address] Platelets (Bld) [#/Vol] 334 10*3/uL Normal 150-400 [facility] Comment on above: Order Comment: Speci men Type: BLOOD SPECIMEN Performed By: #### 5 8410-2 ####[facility]ATORYCLIA [id number] [place] [address] RBC (Bld) [#/Vol] 3.10 10*6/uL Low 4.20-6.00 [facility] Comment on above: Order Comment: Speci men Type: BLOOD SPECIMEN Performed By: #### 5 8410-2 ####[facility]ORATORYCLIA [id number] [place] [address] WBC (Bld) [#/Vol] 7.34 10*3/uL Normal 3.70-11.00 [facility] Comment on above: Order Comment: Speci men Type: BLOOD SPECIMEN Performed By: #### 5 8410-2 ####[facility]ORATORYCLIA [id number] [place] [address] CONSULT PROGon 11-19-2020 CONSULT PROG Normal [facility] CONSULT PROG Normal [facility] CONSULT PROG Normal [facility] Magnesium SerPl-mCncon 11-19 Magnesium [Mass/Vol] 1.6 mg/dL Low 1.7-2.3 [facility] Comment on above: Order Comment: Speci men Type: BLOOD SPECIMEN Performed By: #### 1 9123-9, 77677-5 ####[facility]ORATORYCLIA [id number] [place] [address] NUTRITIONon 11-19-2020 NUTRITION Normal [facility] OPERATIVE NOon 11-19-2020 OPERATIVE NO Normal [facility] PT EDon 11-19-2020 PT ED Normal [facility] PT panel Coag (PPP)on 2020 INR Coag (PPP) [Relative time] 1.1 {INR} Normal 0.9-1.3 [facility] Comment on above: Order Comment: Speci men Type: BLOOD SPECIMEN Result Comment: Aislinn min K Antagonist (VKA) Therapeutic Range: INR 2 to 3 (Target INR of 2.5)Note: For patients treated with VKA drugs, such as warfarin, the [place] [employer] 2012 Guideline recommends a therapeutic INR range of 2 to 3 (target INR of 2.5). This recommendation includes high-risk patients with antiphospholipid syndrome with previous arterial or venous thromboembolism, current-generation mechanical or bioprosthetic aortic heart valve replacement.Note: Patients with mechanical aortic valve replacement and additional risk factors for thromboembolic events (atrial fibrillation, previous thromboembolism, LV dysfunction, hypercoagulable conditions) or an older generation mechanical AVR (i.e., ball in-Cage) or any mechanical MVR should have a INR therapeutic range of 2.5 to 3.5 (target INR of 3).Nan KAPADIA, et al. Chest 2012, 141:7S-47SJessica RA, et al. [facility] 2017, 70: 252-289 Performed By: #### 3 4528-0 ####[facility]ORATORYCLIA [id number] [place] [address] PT Coag (PPP) [Time] 11.6 s Normal 9.7-13.0 [facility] Comment on above: Order Comment: Speci men Type: BLOOD SPECIMEN Performed By: #### 3 4528-0 ####[facility]ORATORYCLIA [id number] [place] [address] THERAPY NTon 11-19-2020 THERAPY NT Normal [facility] XR CHEST 1V FRONTALon 05-05- 2021 XR CHEST 1V FRONTAL Normal [facility] ALLIED HEALTHon 11-18-2020 ALLIED HEALTH Normal [facility] Basic metabolic 2000 panelon 11-18-2020 Anion gap [Moles/Vol] 11 mmol/L Normal 9-18 [facility] Comment on above: Order Comment: Speci men Type: BLOOD SPECIMEN Performed By: #### 2 4321-2, ####[facility]ORYCLIA [id number] [place] [address] Calcium [Mass/Vol] 8.6 mg/dL Normal 8.5-10.2 [facility] Comment on above: Order Comment: Speci men Type: BLOOD SPECIMEN Performed By: #### 2 4321-2, ####[facility]ORATORYCLIA [id number] [place] [address] Chloride [Moles/Vol] 102 mmol/L Normal 97-105 [facility] Comment on above: Order Comment: Speci men Type: BLOOD SPECIMEN Performed By: #### 2 4321-2, ####[facility]ORYCLIA [id number] [place] [address] CO2 [Moles/Vol] 22 mmol/L Normal 22-30 [facility] Comment on above: Order Comment: Speci men Type: BLOOD SPECIMEN Performed By: #### 2 4321-2, ####[facility] LABORATORYCLIA [id number] [place] [address] Creatinine [Mass/Vol] 0.70 mg/dL Low 0.73-1.22 [facility] Comment on above: Order Comment: Speci men Type: BLOOD SPECIMEN Performed By: #### 2 4321-2, ####[facility]ORYCLIA [id number] [place] [address] GFR/1.73 sq M.predicted MDRD (S/P/Bld) [Vol rate/Area] mL/min/{1.73_m2} Normal [facility] Comment on above: Order Comment: Speci men Type: BLOOD SPECIMEN Result Comment: >60e GFR (Estimated GFR) Units of measure: mL/min/1.73 meters squaredeGFR is derived from the reexpressed MDRD Study equation using the following parameters: serum creatinine, age, gender and race. The creatinine assay has been calibrated to be traceable to IDAK. An eGFR <60 mL/min/1.73m2 for >3 months is consistent with chronic kidney disease. Refer to KDOQI guidelines for clinical interpretation. In patients with unstable renal function, e.g. those with acute kidney injury, the eGFR may not accurately reflect actual GFR. Performed By: #### 2 4320-08, ####[facility]ORATORYCLIA [id number] [place] [address] Glucose [Mass/Vol] 142 mg/dL High 74-99 [facility] Comment on above: Order Comment: Speci men Type: BLOOD SPECIMEN Result Comment: The [place] Diabetes Association (ADA) provides guidance for cutoff values for fasting glucose and random glucose. The ADA defines fasting as no caloric intake for at least 8 hours. Fasting plasma glucose results between 100 to 125 mg/dL indicate increased risk for diabetes (prediabetes).Fasting plasma glucose results greater than or equal to 126 mg/dL meet the criteria for diagnosis of diabetes. In the absence of unequivocal hyperglycemia, results should be confirmed by repeat testing. In a patient with classic symptoms of hyperglycemia or hyperglycemic crisis, random plasma glucose results greater than or equal to 200 mg/dL meet the criteria for diagnosis of diabetes.Reference: Standards of Medical Care in Diabetes 2016, [place] [employer]. Diabetes Care. 2016.39(Suppl 1). Performed By: #### 2 ####[facility]ORATORYCLIA [id number] [place] [address] Potassium [Moles/Vol] 4.2 mmol/L Normal 3.7-5.1 [facility] Comment on above: Order Comment: Speci men Type: BLOOD SPECIMEN Performed By: #### 2 43207-19, ####[facility]ORATORYCLIA [id number] [place] [address] Sodium [Moles/Vol] 135 mmol/L Low 136-144 [facility] Comment on above: Order Comment: Speci men Type: BLOOD SPECIMEN Performed By: #### 2 4321-2, 82275-3 ####[facility]ORATORYCLIA [id number] [place] [address] Urea nitrogen [Mass/Vol] 17 mg/dL Normal 9-24 [facility] Comment on above: Order Comment: Speci men Type: BLOOD SPECIMEN Performed By: #### 2 4321-2, 68103-7 ####[facility]ORATORYCLIA [id number] [place] [address] CBC panel Auto (Bld)on 11-18 Erythrocyte distribution width (RBC) [Ratio] 15.9 % High 11.5-15.0 [facility] Comment on above: Order Comment: Speci men Type: BLOOD SPECIMEN Performed By: #### 5 8410-2 ####[facility]ORATORYCLIA [id number] [place] [address] Hematocrit (Bld) [Volume fraction] 25.6 % Low 39.0-51.0 [facility] Comment on above: Order Comment: Speci men Type: BLOOD SPECIMEN Performed By: #### 5 8410-2 ####[facility]ATORYCLIA [id number] [place] [address] Hemoglobin (Bld) [Mass/Vol] 7.7 g/dL Low 13.0-17.0 [facility] Comment on above: Order Comment: Speci men Type: BLOOD SPECIMEN Performed By: #### 5 8410-2 ####[facility]ORATORYCLIA [id number] [place] [address] MCH (RBC) [Entitic mass] 24.2 pg Low 26.0-34.0 [facility] Comment on above: Order Comment: Speci men Type: BLOOD SPECIMEN Performed By: #### 5 8410-2 ####[facility]ATORYCLIA [id number] [place] [address] MCHC (RBC) [Mass/Vol] 30.1 g/dL Low 30.5-36.0 [facility] Comment on above: Order Comment: Speci men Type: BLOOD SPECIMEN Performed By: #### 5 8410-2 ####[facility]ATORYCLIA [id number] [place] [address] MCV (RBC) [Entitic vol] 80.5 fL Normal 80.0-100.0 [facility] Comment on above: Order Comment: Speci men Type: BLOOD SPECIMEN Performed By: #### 5 8410-2 ####[facility]ATORYCLIA [id number] [place] [address] Nucleated RBC (Bld) [#/Vol] 10*3/uL Normal <0.01 [facility] Comment on above: Order Comment: Speci men Type: BLOOD SPECIMEN Performed By: #### 5 8410-2 ####[facility]ORATORYCLIA [id number] [place] [address] Platelet mean volume (Bld) [Entitic vol] 9.7 fL Normal 9.0-12.7 [facility] Comment on above: Order Comment: Speci men Type: BLOOD SPECIMEN Performed By: #### 5 8410-2 ####[facility]ATORYCLIA [id number] [place] [address] Platelets (Bld) [#/Vol] 341 10*3/uL Normal 150-400 [facility] Comment on above: Order Comment: Speci men Type: BLOOD SPECIMEN Performed By: #### 5 8410-2 ####[facility]ATORYCLIA [id number] [place] [address] RBC (Bld) [#/Vol] 3.18 10*6/uL Low 4.20-6.00 [facility] Comment on above: Order Comment: Speci men Type: BLOOD SPECIMEN Performed By: #### 5 8410-2 ####[facility]ATORYCLIA [id number] [place] [address] WBC (Bld) [#/Vol] 6.84 10*3/uL Normal 3.70-11.00 [facility] Comment on above: Order Comment: Speci men Type: BLOOD SPECIMEN Performed By: #### 5 8410-2 ####[facility]ORATORYCLIA [id number] [place] [address] CONSULT PROGon 11-18-2020 CONSULT PROG Normal [facility] CONSULT PROG Normal [facility] Magnesium SerPl-mCncon 11-18 Magnesium [Mass/Vol] 1.9 mg/dL Normal 1.7-2.3 [facility] Comment on above: Order Comment: Speci men Type: BLOOD SPECIMEN Performed By: #### 2 4321-2, 83495-4 ####[facility]ORATORYCLIA [id number] [place] [address] PT EDon 11-18-2020 PT ED Normal [facility] PT panel Coag (PPP)on 2020 INR Coag (PPP) [Relative time] 1.2 {INR} Normal 0.9-1.3 [facility] Comment on above: Order Comment: Speci men Type: BLOOD SPECIMEN Result Comment: Aislinn min K Antagonist (VKA) Therapeutic Range: INR 2 to 3 (Target INR of 2.5)Note: For patients treated with VKA drugs, such as warfarin, the [place] [employer] 2012 Guideline recommends a therapeutic INR range of 2 to 3 (target INR of 2.5). This recommendation includes high-risk patients with antiphospholipid syndrome with previous arterial or venous thromboembolism, current-generation mechanical or bioprosthetic aortic heart valve replacement.Note: Patients with mechanical aortic valve replacement and additional risk factors for thromboembolic events (atrial fibrillation, previous thromboembolism, LV dysfunction, hypercoagulable conditions) or an older generation mechanical AVR (i.e., ball in-Cage) or any mechanical MVR should have a INR therapeutic range of 2.5 to 3.5 (target INR of 3).Nan GH, et al. Chest 2012, 141:7S-47SNishimura RA, et al. [facility] 2017, 70: 252-289 Performed By: #### 3 4528-0 ####[facility]ORATORYCLIA [id number] [place] [address] PT Coag (PPP) [Time] 12.0 s Normal 9.7-13.0 [facility] Comment on above: Order Comment: Speci men Type: BLOOD SPECIMEN Performed By: #### 3 4528-0 ####[facility]ORATORYCLIA [id number] [place] [address] XR CHEST 1V FRONTALon 2020 XR CHEST 1V FRONTAL Normal [facility] ALLIED HEALTHon 11-17-2020 ALLIED HEALTH Normal [facility] ANES POSTPROC EVALon 021 ANES POSTPROC EVAL Normal [facility] ANES PRE-OPon 11-17-2020 ANES PRE-OP Normal [facility] ARTERIAL BLOOD GASESon 11-17 BASE DEFICIT, ARTERIAL -3.1 mmol/L Low -2-[address] [facility] Comment on above: Order Comment: Speci men Type: ARTERIAL BLOOD SPECIMEN Performed By: #### A LLBG ####[facility]ATORYCLIA [id number] [place] [address] Body temperature 97.88 [degF] Normal [facility] Comment on above: Order Comment: Speci men Type: ARTERIAL BLOOD SPECIMEN Performed By: #### A LLBG ####[facility]ATORYCLIA [id number] [place] [address] CALCIUM IONIZED, PH CORRECTED 1.21 mmol/L Normal 1.08-1.30 [facility] Comment on above: Order Comment: Speci men Type: ARTERIAL BLOOD SPECIMEN Performed By: #### A LLBG ####[facility]ORYCLIA [id number] [place] [address] Calcium.ionized (BldV) [Mass/Vol] 1.24 mmol/L Normal 1.08-1.30 [facility] Comment on above: Order Comment: Speci men Type: ARTERIAL BLOOD SPECIMEN Performed By: #### A LLBG ####[facility]ORYCLIA [id number] [place] [address] Carboxyhemoglobin (BldA) [Mass fraction] 1.2 % Normal 0.0-2.0 [facility] Comment on above: Order Comment: Speci men Type: ARTERIAL BLOOD SPECIMEN Result Comment: Carb oxyhemoglobin Reference Range for Smokers: 2.0-8.0% Performed By: #### A LLBG ####[facility]ORYCLIA [id number] [place] [address] CO2 (Bld) [Partial pressure] 39 mm Hg Normal 36-46 [facility] Comment on above: Order Comment: Speci men Type: ARTERIAL BLOOD SPECIMEN Performed By: #### A LLBG ####[facility]ORYCLIA [id number] [place] [address] CO2 [Moles/Vol] 20.4 mmol/L Low 22-28 [facility] Comment on above: Order Comment: Speci men Type: ARTERIAL BLOOD SPECIMEN Performed By: #### A LLBG ####[facility]ORYCLIA [id number] [place] [address] CO2 adjusted to patient's actual temperature (Bld) [Partial pressure] 38 mmHg Normal 36-46 [facility] Comment on above: Order Comment: Speci men Type: ARTERIAL BLOOD SPECIMEN Performed By: #### A LLBG ####[facility]ORYCLIA [id number] [place] [address] Glucose [Mass/Vol] 206 mg/dL High 60-105 [facility] Comment on above: Order Comment: Speci men Type: ARTERIAL BLOOD SPECIMEN Performed By: #### A LLBG ####[facility]ORYCLIA [id number] [place] [address] HCO3 (Bld) [Moles/Vol] 22 mmol/L Normal 22-26 [facility] Comment on above: Order Comment: Speci men Type: ARTERIAL BLOOD SPECIMEN Performed By: #### A LLBG ####[facility]ORYCLIA [id number] [place] [address] Hematocrit (Bld) [Volume fraction] 28.2 % Low 39.0-51.0 [facility] Comment on above: Order Comment: Speci men Type: ARTERIAL BLOOD SPECIMEN Performed By: #### A LLBG ####[facility]ORYCLIA [id number] [place] [address] Hemoglobin (Bld) [Mass/Vol] 9.1 g/dL Low 13.0-17.0 [facility] Comment on above: Order Comment: Speci men Type: ARTERIAL BLOOD SPECIMEN Performed By: #### A LLBG ####[facility]ATORYCLIA [id number] [place] [address] Methemoglobin (Bld) [Mass fraction] % Normal 0.0-1.5 [facility] Comment on above: Order Comment: Speci men Type: ARTERIAL BLOOD SPECIMEN Performed By: #### A LLBG ####[facility]ORYCLIA [id number] [place] [address] O2 THERAPY NC = Nasal Cannula Normal [facility] Comment on above: Order Comment: Speci men Type: ARTERIAL BLOOD SPECIMEN Performed By: #### A LLBG ####[facility]ORYCLIA [id number] [place] [address] Oxygen (Bld) [Partial pressure] 106 mm Hg High 85-95 [facility] Comment on above: Order Comment: Speci men Type: ARTERIAL BLOOD SPECIMEN Performed By: #### A LLBG ####[facility]ORYCLIA [id number] [place] [address] Oxygen adjusted to patient's actual temperature (Bld) [Partial pressure] 104 mmHg High 85-95 [facility] Comment on above: Order Comment: Speci men Type: ARTERIAL BLOOD SPECIMEN Performed By: #### A LLBG ####[facility]ORYCLIA [id number] [place] [address] OXYGEN SATURATION, ARTERIAL 97 % Normal 95-98 [facility] Comment on above: Order Comment: Speci men Type: ARTERIAL BLOOD SPECIMEN Performed By: #### A LLBG ####[facility]ORYCLIA [id number] [place] [address] Oxyhemoglobin (BldA) [Mass fraction] 95 % Normal 95-98 [facility] Comment on above: Order Comment: Speci men Type: ARTERIAL BLOOD SPECIMEN Performed By: #### A LLBG ####[facility]ORYCLIA [id number] [place] [address] pH (Bld) 7.36 [pH] Normal 7.35-7.45 [facility] Comment on above: Order Comment: Speci men Type: ARTERIAL BLOOD SPECIMEN Performed By: #### A LLBG ####[facility]ORYCLIA [id number] [place] [address] pH adjusted to patient's actual temperature (Bld) 7.37 Normal 7.35-7.45 [facility] Comment on above: Order Comment: Speci men Type: ARTERIAL BLOOD SPECIMEN Performed By: #### A LLBG ####[facility]ORYCLIA [id number] [place] [address] Potassium [Moles/Vol] 4.1 mmol/L Normal 3.5-5.0 [facility] Comment on above: Order Comment: Speci men Type: ARTERIAL BLOOD SPECIMEN Performed By: #### A LLBG ####[facility]ORYCLIA [id number] [place] [address] Sodium [Moles/Vol] 137 mmol/L Normal 136-144 [facility] Comment on above: Order Comment: Speci men Type: ARTERIAL BLOOD SPECIMEN Performed By: #### A LLBG ####[facility]ORYCLIA [id number] [place] [address] Basic metabolic 2000 panelon 11-17-2020 Anion gap [Moles/Vol] 12 mmol/L Normal 9-18 [facility] Comment on above: Order Comment: Speci men Type: BLOOD SPECIMEN Performed By: #### 2 4321-2, ####[facility]ORYCLIA [id number] [place] [address] Calcium [Mass/Vol] 8.7 mg/dL Normal 8.5-10.2 [facility] Comment on above: Order Comment: Speci men Type: BLOOD SPECIMEN Performed By: #### 2 432-2, ####[facility]ORYCLIA [id number] [place] [address] Chloride [Moles/Vol] 102 mmol/L Normal 97-105 [facility] Comment on above: Order Comment: Speci men Type: BLOOD SPECIMEN Performed By: #### 2 1-2, ####[facility]ATORYCLIA [id number] [place] [address] CO2 [Moles/Vol] 20 mmol/L Low 22-30 [facility] Comment on above: Order Comment: Speci men Type: BLOOD SPECIMEN Performed By: #### 2 4320-2, ####[facility]ATORYCLIA [id number] [place] [address] Creatinine [Mass/Vol] 0.63 mg/dL Low 0.73-1.22 [facility] Comment on above: Order Comment: Speci men Type: BLOOD SPECIMEN Performed By: #### 2 4320-2, ####[facility]ORATORYCLIA [id number] [place] [address] GFR/1.73 sq M.predicted MDRD (S/P/Bld) [Vol rate/Area] mL/min/{1.73_m2} Normal [facility] Comment on above: Order Comment: Speci men Type: BLOOD SPECIMEN Result Comment: >60e GFR (Estimated GFR) Units of measure: mL/min/1.73 meters squaredeGFR is derived from the reexpressed MDRD Study equation using the following parameters: serum creatinine, age, gender and race. The creatinine assay has been calibrated to be traceable to IDMS. An eGFR <60 mL/min/1.73m2 for >3 months is consistent with chronic kidney disease. Refer to KDOQI guidelines for clinical interpretation. In patients with unstable renal function, e.g. those with acute kidney injury, the eGFR may not accurately reflect actual GFR. Performed By: #### 2 1-2, ####[facility]ATORYCLIA [id number] [place] [address] Glucose [Mass/Vol] 191 mg/dL High 74-99 [facility] Comment on above: Order Comment: Speci men Type: BLOOD SPECIMEN Result Comment: The [place] Diabetes Association (ADA) provides guidance for cutoff values for fasting glucose and random glucose. The ADA defines fasting as no caloric intake for at least 8 hours. Fasting plasma glucose results between 100 to 125 mg/dL indicate increased risk for diabetes (prediabetes).Fasting plasma glucose results greater than or equal to 126 mg/dL meet the criteria for diagnosis of diabetes. In the absence of unequivocal hyperglycemia, results should be confirmed by repeat testing. In a patient with classic symptoms of hyperglycemia or hyperglycemic crisis, random plasma glucose results greater than or equal to 200 mg/dL meet the criteria for diagnosis of diabetes.Reference: Standards of Medical Care in Diabetes 2016, [place] [employer]. Diabetes Care. 2016.39(Suppl 1). Performed By: #### 2 4320-2, ####[facility]ORATORYCLIA [id number] [place] [address] Potassium [Moles/Vol] 4.2 mmol/L Normal 3.7-5.1 [facility] Comment on above: Order Comment: Speci men Type: BLOOD SPECIMEN Performed By: #### 2 4320-08, ####[facility]ATORYCLIA [id number] [place] [address] Sodium [Moles/Vol] 134 mmol/L Low 136-144 [facility] Comment on above: Order Comment: Speci men Type: BLOOD SPECIMEN Performed By: #### 2 4320-08, ####[facility]ORATORYCLIA [id number] [place] [address] Urea nitrogen [Mass/Vol] 20 mg/dL Normal 9-24 [facility] Comment on above: Order Comment: Speci men Type: BLOOD SPECIMEN Performed By: #### 2 4320-08, ####[facility]ORATORYCLIA [id number] [place] [address] CBC panel Auto (Bld)on 11-17 Erythrocyte distribution width (RBC) [Ratio] 16.0 % High 11.5-15.0 [facility] Comment on above: Order Comment: Speci men Type: BLOOD SPECIMEN Performed By: #### 5 8410-2 ####[facility]ATORYCLIA [id number] [place] [address] Hematocrit (Bld) [Volume fraction] 27.4 % Low 39.0-51.0 [facility] Comment on above: Order Comment: Speci men Type: BLOOD SPECIMEN Performed By: #### 5 8410-2 ####[facility]ATORYCLIA [id number] [place] [address] Hemoglobin (Bld) [Mass/Vol] 8.3 g/dL Low 13.0-17.0 [facility] Comment on above: Order Comment: Speci men Type: BLOOD SPECIMEN Performed By: #### 5 8410-2 ####[facility]ORATORYCLIA [id number] [place] [address] MCH (RBC) [Entitic mass] 24.6 pg Low 26.0-34.0 [facility] Comment on above: Order Comment: Speci men Type: BLOOD SPECIMEN Performed By: #### 5 8410-2 ####[facility]ATORYCLIA [id number] [place] [address] MCHC (RBC) [Mass/Vol] 30.3 g/dL Low 30.5-36.0 [facility] Comment on above: Order Comment: Speci men Type: BLOOD SPECIMEN Performed By: #### 5 8410-2 ####[facility]ATORYCLIA [id number] [place] [address] MCV (RBC) [Entitic vol] 81.1 fL Normal 80.0-100.0 [facility] Comment on above: Order Comment: Speci men Type: BLOOD SPECIMEN Performed By: #### 5 8410-2 ####[facility]ATORYCLIA [id number] [place] [address] Nucleated RBC (Bld) [#/Vol] 10*3/uL Normal <0.01 [facility] Comment on above: Order Comment: Speci men Type: BLOOD SPECIMEN Performed By: #### 5 8410-2 ####[facility]ATORYCLIA [id number] [place] [address] Platelet mean volume (Bld) [Entitic vol] 10.1 fL Normal 9.0-12.7 [facility] Comment on above: Order Comment: Speci men Type: BLOOD SPECIMEN Performed By: #### 5 8410-2 ####[facility]ORATORYCLIA [id number] [place] [address] Platelets (Bld) [#/Vol] 369 10*3/uL Normal 150-400 [facility] Comment on above: Order Comment: Speci men Type: BLOOD SPECIMEN Performed By: #### 5 8410-2 ####[facility]ATORYCLIA [id number] [place] [address] RBC (Bld) [#/Vol] 3.38 10*6/uL Low 4.20-6.00 [facility] Comment on above: Order Comment: Speci men Type: BLOOD SPECIMEN Performed By: #### 5 8410-2 ####[facility]ATORYCLIA [id number] [place] [address] WBC (Bld) [#/Vol] 6.41 10*3/uL Normal 3.70-11.00 [facility] Comment on above: Order Comment: Speci men Type: BLOOD SPECIMEN Performed By: #### 5 8410-2 ####[facility]ORATORYCLIA [id number] [place] [address] Erythrocyte distribution width (RBC) [Ratio] 16.1 % High 11.5-15.0 [facility] Comment on above: Order Comment: Speci men Type: BLOOD SPECIMEN Performed By: #### 5 8410-2 ####[facility]ATORYCLIA [id number] [place] [address] Hematocrit (Bld) [Volume fraction] 23.2 % Low 39.0-51.0 [facility] Comment on above: Order Comment: Speci men Type: BLOOD SPECIMEN Performed By: #### 5 8410-2 ####[facility]ORYCLIA [id number] [place] [address] Hemoglobin (Bld) [Mass/Vol] 6.8 g/dL Low 13.0-17.0 [facility] Comment on above: Order Comment: Speci men Type: BLOOD SPECIMEN Performed By: #### 5 8410-2 ####[facility]ORATORYCLIA [id number] [place] [address] MCH (RBC) [Entitic mass] 24.3 pg Low 26.0-34.0 [facility] Comment on above: Order Comment: Speci men Type: BLOOD SPECIMEN Performed By: #### 5 8410-2 ####[facility]ATORYCLIA [id number] [place] [address] MCHC (RBC) [Mass/Vol] 29.3 g/dL Low 30.5-36.0 [facility] Comment on above: Order Comment: Speci men Type: BLOOD SPECIMEN Performed By: #### 5 8410-2 ####[facility]ORATORYCLIA [id number] [place] [address] MCV (RBC) [Entitic vol] 82.9 fL Normal 80.0-100.0 [facility] Comment on above: Order Comment: Speci men Type: BLOOD SPECIMEN Performed By: #### 5 8410-2 ####[facility]ORATORYCLIA [id number] [place] [address] Nucleated RBC (Bld) [#/Vol] 10*3/uL Normal <0.01 [facility] Comment on above: Order Comment: Speci men Type: BLOOD SPECIMEN Performed By: #### 5 8410-2 ####[facility]ATORYCLIA [id number] [place] [address] Platelet mean volume (Bld) [Entitic vol] 9.7 fL Normal 9.0-12.7 [facility] Comment on above: Order Comment: Speci men Type: BLOOD SPECIMEN Performed By: #### 5 8410-2 ####[facility]ORATORYCLIA [id number] [place] [address] Platelets (Bld) [#/Vol] 314 10*3/uL Normal 150-400 [facility] Comment on above: Order Comment: Speci men Type: BLOOD SPECIMEN Performed By: #### 5 8410-2 ####[facility]ORATORYCLIA [id number] [place] [address] RBC (Bld) [#/Vol] 2.80 10*6/uL Low 4.20-6.00 [facility] Comment on above: Order Comment: Speci men Type: BLOOD SPECIMEN Performed By: #### 5 8410-2 ####[facility]ORATORYCLIA [id number] [place] [address] WBC (Bld) [#/Vol] 4.81 10*3/uL Normal 3.70-11.00 [facility] Comment on above: Order Comment: Speci men Type: BLOOD SPECIMEN Performed By: #### 5 8410-2 ####[facility]ORATORYCLIA [id number] [place] [address] CONSULT PROGon 11-17-2020 CONSULT PROG Normal [facility] CONSULT PROG Normal [facility] Magnesium SerPl-mCncon 11-17 Magnesium [Mass/Vol] 1.6 mg/dL Low 1.7-2.3 [facility] Comment on above: Order Comment: Speci men Type: BLOOD SPECIMEN Performed By: #### 2 4321-2, 28967-2 ####[facility]ORATORYCLIA [id number] [place] [address] PT panel Coag (PPP)on 2020 INR Coag (PPP) [Relative time] 1.1 {INR} Normal 0.9-1.3 [facility] Comment on above: Order Comment: Speci men Type: BLOOD SPECIMEN Result Comment: Aislinn min K Antagonist (VKA) Therapeutic Range: INR 2 to 3 (Target INR of 2.5)Note: For patients treated with VKA drugs, such as warfarin, the [place] [employer] 2012 Guideline recommends a therapeutic INR range of 2 to 3 (target INR of 2.5). This recommendation includes high-risk patients with antiphospholipid syndrome with previous arterial or venous thromboembolism, current-generation mechanical or bioprosthetic aortic heart valve replacement.Note: Patients with mechanical aortic valve replacement and additional risk factors for thromboembolic events (atrial fibrillation, previous thromboembolism, LV dysfunction, hypercoagulable conditions) or an older generation mechanical AVR (i.e., ball in-Cage) or any mechanical MVR should have a INR therapeutic range of 2.5 to 3.5 (target INR of 3).Nan KAPADIA, et al. Chest 2012, 141:7S-47SJessica BARRERA, et al. [facility] 2017, 70: 252-289 Performed By: #### 1 4979-9, 50477-3 ####[facility] LABORATORYCLIA [id number] [place] [address] PT Coag (PPP) [Time] 11.6 s Normal 9.7-13.0 [facility] Comment on above: Order Comment: Speci men Type: BLOOD SPECIMEN Performed By: #### 1 4979-9, 09756-4 ####[facility] LABORATORYCLIA [id number] [place] [address] INR Coag (PPP) [Relative time] 1.2 {INR} Normal 0.9-1.3 [facility] Comment on above: Order Comment: Speci men Type: BLOOD SPECIMEN Result Comment: Aislinn min K Antagonist (VKA) Therapeutic Range: INR 2 to 3 (Target INR of 2.5)Note: For patients treated with VKA drugs, such as warfarin, the [place] [employer] 2012 Guideline recommends a therapeutic INR range of 2 to 3 (target INR of 2.5). This recommendation includes high-risk patients with antiphospholipid syndrome with previous arterial or venous thromboembolism, current-generation mechanical or bioprosthetic aortic heart valve replacement.Note: Patients with mechanical aortic valve replacement and additional risk factors for thromboembolic events (atrial fibrillation, previous thromboembolism, LV dysfunction, hypercoagulable conditions) or an older generation mechanical AVR (i.e., ball in-Cage) or any mechanical MVR should have a INR therapeutic range of 2.5 to 3.5 (target INR of 3).Nan KAPADIA, et al. Chest 2012, 141:7S-47SJessica BARRERA, et al. [facility] 2017, 70: 252-289 Performed By: #### 3 4528-0 ####[facility] LABORATORYCLIA [id number] [place] [address] PT Coag (PPP) [Time] 11.9 s Normal 9.7-13.0 [facility] Comment on above: Order Comment: Speci men Type: BLOOD SPECIMEN Performed By: #### 3 4528-0 ####[facility] LABORATORYCLIA [id number] [place] [address] Vancomycin random [Mass/Vol] on 11-17-2020 Vancomycin [Mass/Vol] 7.1 ug/mL Low 10.0-20.0 [facility] Comment on above: Order Comment: Speci men Type: BLOOD SPECIMEN Result Comment: Refe rence ranges and high/low indicator flags are provided as general guidelines only. The treating physician must determine appropriate target levels/dosing based on the specific clinical situation. Performed By: #### 4 091-5 ####[facility]ORATORYCLIA [id number] [place] [address] XR CHEST 1V FRONTALon 2020 XR CHEST 1V FRONTAL Normal [facility] aPTT PPPon 11-17-2020 aPTT Coag (PPP) [Time] 28.8 s Normal 23.0-32.4 [facility] Comment on above: Order Comment: Speci men Type: BLOOD SPECIMEN Performed By: #### 1 4979-9, 69925-6 ####[facility]ORATORYCLIA [id number] [place] [id number] ALLIED HEALTHon 11-16-2020 ALLIED HEALTH Normal [facility] CBC panel Auto (Bld)on 11-16 Erythrocyte distribution width (RBC) [Ratio] 16.3 % High 11.5-15.0 [facility] Comment on above: Order Comment: Speci men Type: BLOOD SPECIMEN Performed By: #### 5 8410-2 ####[facility]ORATORYCLIA [id number] [place] [address] Hematocrit (Bld) [Volume fraction] 26.6 % Low 39.0-51.0 [facility] Comment on above: Order Comment: Speci men Type: BLOOD SPECIMEN Performed By: #### 5 8410-2 ####[facility]ORATORYCLIA [id number] [place] [id number] Hemoglobin (Bld) [Mass/Vol] 8.2 g/dL Low 13.0-17.0 [facility] Comment on above: Order Comment: Speci men Type: BLOOD SPECIMEN Performed By: #### 5 8410-2 ####[facility]ORATORYCLIA [id number] [place] [address] MCH (RBC) [Entitic mass] 24.9 pg Low 26.0-34.0 [facility] Comment on above: Order Comment: Speci men Type: BLOOD SPECIMEN Performed By: #### 5 8410-2 ####[facility]ORATORYCLIA [id number] [place] [address] MCHC (RBC) [Mass/Vol] 30.8 g/dL Normal 30.5-36.0 [facility] Comment on above: Order Comment: Speci men Type: BLOOD SPECIMEN Performed By: #### 5 8410-2 ####[facility]ORATORYCLIA [id number] [place] [address] MCV (RBC) [Entitic vol] 80.9 fL Normal 80.0-100.0 [facility] Comment on above: Order Comment: Speci men Type: BLOOD SPECIMEN Performed By: #### 5 8410-2 ####[facility]ORATORYCLIA [id number] [place] [address] Nucleated RBC (Bld) [#/Vol] 10*3/uL Normal <0.01 [facility] Comment on above: Order Comment: Speci men Type: BLOOD SPECIMEN Performed By: #### 5 8410-2 ####[facility]ORATORYCLIA [id number] [place] [address] Platelet mean volume (Bld) [Entitic vol] 9.6 fL Normal 9.0-12.7 [facility] Comment on above: Order Comment: Speci men Type: BLOOD SPECIMEN Performed By: #### 5 8410-2 ####[facility]ORATORYCLIA [id number] [place] [address] Platelets (Bld) [#/Vol] 367 10*3/uL Normal 150-400 [facility] Comment on above: Order Comment: Speci men Type: BLOOD SPECIMEN Performed By: #### 5 8410-2 ####[facility]ATORYCLIA [id number] [place] [address] RBC (Bld) [#/Vol] 3.29 10*6/uL Low 4.20-6.00 [facility] Comment on above: Order Comment: Speci men Type: BLOOD SPECIMEN Performed By: #### 5 8410-2 ####[facility]ORATORYCLIA [id number] [place] [address] WBC (Bld) [#/Vol] 4.37 10*3/uL Normal 3.70-11.00 [facility] Comment on above: Order Comment: Speci men Type: BLOOD SPECIMEN Performed By: #### 5 8410-2 ####[facility]ORATORYCLIA [id number] [place] [address] PT panel Coag (PPP)on 2020 INR Coag (PPP) [Relative time] 1.2 {INR} Normal 0.9-1.3 [facility] Comment on above: Order Comment: Speci men Type: BLOOD SPECIMEN Result Comment: Aislinn min K Antagonist (VKA) Therapeutic Range: INR 2 to 3 (Target INR of 2.5)Note: For patients treated with VKA drugs, such as warfarin, the [employer] 2012 Guideline recommends a therapeutic INR range of 2 to 3 (target INR of 2.5). This recommendation includes high-risk patients with antiphospholipid syndrome with previous arterial or venous thromboembolism, current-generation mechanical or bioprosthetic aortic heart valve replacement.Note: Patients with mechanical aortic valve replacement and additional risk factors for thromboembolic events (atrial fibrillation, previous thromboembolism, LV dysfunction, hypercoagulable conditions) or an older generation mechanical AVR (i.e., ball in-Cage) or any mechanical MVR should have a INR therapeutic range of 2.5 to 3.5 (target INR of 3).Nan KAPADIA, et al. Chest 2012, 141:7S-47SJessica RA, et al. [facility] 2017, 70: 252-289 Performed By: #### 3 4528-0, 82931-4 ####[facility]ORATORYCLIA [id number] [place] [address] PT Coag (PPP) [Time] 12.4 s Normal 9.7-13.0 [facility] Comment on above: Order Comment: Speci men Type: BLOOD SPECIMEN Performed By: #### 3 4528-0, 02279-5 ####[facility]ORATORYCLIA [id number] [place] [address] SARS-CoV-2 RNA Resp Ql SCAR+p robeon 11-16-2020 SARS-CoV-2 (COVID-19) RNA SCAR+probe Ql (Resp) COVID 19 RESULT: SARS-CoV-2 (Agent of COVID-19) Not Detected by PCR. This test has been authorized by FDA under an Emergency Use Authorization (EUA) Normal [facility] Comment on above: Performed By: #### 9 4500-6 ####[facility]ORATORYCLIA [id number] [place] [address] aPTT PPPon 11-16-2020 aPTT Coag (PPP) [Time] 70.2 s High 23.0-32.4 [facility] Comment on above: Order Comment: Speci men Type: BLOOD SPECIMEN Performed By: #### 3 4528-0, 77818-8 ####[facility]ORATORYCLIA [id number] [place] [address] CBC panel Auto (Bld)on 11-15 Erythrocyte distribution width (RBC) [Ratio] 16.5 % High 11.5-15.0 [facility] Comment on above: Order Comment: Speci men Type: BLOOD SPECIMEN Performed By: #### 5 8410-2 ####[facility]ORATORYCLIA [id number] [place] [address] Hematocrit (Bld) [Volume fraction] 26.4 % Low 39.0-51.0 [facility] Comment on above: Order Comment: Speci men Type: BLOOD SPECIMEN Performed By: #### 5 8410-2 ####[facility]ORATORYCLIA [id number] [place] [address] Hemoglobin (Bld) [Mass/Vol] 8.0 g/dL Low 13.0-17.0 [facility] Comment on above: Order Comment: Speci men Type: BLOOD SPECIMEN Performed By: #### 5 8410-2 ####[facility]ORATORYCLIA [id number] [place] [address] MCH (RBC) [Entitic mass] 24.6 pg Low 26.0-34.0 [facility] Comment on above: Order Comment: Speci men Type: BLOOD SPECIMEN Performed By: #### 5 8410-2 ####[facility]ORATORYCLIA [id number] [place] [address] MCHC (RBC) [Mass/Vol] 30.3 g/dL Low 30.5-36.0 [facility] Comment on above: Order Comment: Speci men Type: BLOOD SPECIMEN Performed By: #### 5 8410-2 ####[facility]ORATORYCLIA [id number] [place] [address] MCV (RBC) [Entitic vol] 81.2 fL Normal 80.0-100.0 [facility] Comment on above: Order Comment: Speci men Type: BLOOD SPECIMEN Performed By: #### 5 8410-2 ####[facility]ORATORYCLIA [id number] [place] [address] Nucleated RBC (Bld) [#/Vol] 10*3/uL Normal <0.01 [facility] Comment on above: Order Comment: Speci men Type: BLOOD SPECIMEN Performed By: #### 5 8410-2 ####[facility]ORATORYCLIA [id number] [place] [address] Platelet mean volume (Bld) [Entitic vol] 9.8 fL Normal 9.0-12.7 [facility] Comment on above: Order Comment: Speci men Type: BLOOD SPECIMEN Performed By: #### 5 8410-2 ####[facility]ORATORYCLIA [id number] [place] [address] Platelets (Bld) [#/Vol] 315 10*3/uL Normal 150-400 [facility] Comment on above: Order Comment: Speci men Type: BLOOD SPECIMEN Performed By: #### 5 8410-2 ####[facility]ORATORYCLIA [id number] [place] [address] RBC (Bld) [#/Vol] 3.25 10*6/uL Low 4.20-6.00 [facility] Comment on above: Order Comment: Speci men Type: BLOOD SPECIMEN Performed By: #### 5 8410-2 ####[facility]ORATORYCLIA [id number] [place] [address] WBC (Bld) [#/Vol] 5.02 10*3/uL Normal 3.70-11.00 [facility] Comment on above: Order Comment: Speci men Type: BLOOD SPECIMEN Performed By: #### 5 8410-2 ####[facility]ORATORYCLIA [id number] [place] [address] CONSULTon 11-15-2020 CONSULT Normal [facility] CONSULT PROGon 11-15-2020 CONSULT PROG Normal [facility] NURSING PROGon 11-15-2020 NURSING PROG Normal [facility] PT panel Coag (PPP)on 2020 INR Coag (PPP) [Relative time] 1.1 {INR} Normal 0.9-1.3 [facility] Comment on above: Order Comment: Speci men Type: BLOOD SPECIMEN Result Comment: Aislinn min K Antagonist (VKA) Therapeutic Range: INR 2 to 3 (Target INR of 2.5)Note: For patients treated with VKA drugs, such as warfarin, the [place] [employer] 2012 Guideline recommends a therapeutic INR range of 2 to 3 (target INR of 2.5). This recommendation includes high-risk patients with antiphospholipid syndrome with previous arterial or venous thromboembolism, current-generation mechanical or bioprosthetic aortic heart valve replacement.Note: Patients with mechanical aortic valve replacement and additional risk factors for thromboembolic events (atrial fibrillation, previous thromboembolism, LV dysfunction, hypercoagulable conditions) or an older generation mechanical AVR (i.e., ball in-Cage) or any mechanical MVR should have a INR therapeutic range of 2.5 to 3.5 (target INR of 3).Nan GH, et al. Chest 2012, 141:7S-47SNishimura RA, et al. [facility] 2017, 70: 252-289 Performed By: #### 3 4528-0, 48479-7 ####[facility]ORATORYCLIA [id number] [place] [address] PT Coag (PPP) [Time] 11.7 s Normal 9.7-13.0 [facility] Comment on above: Order Comment: Speci men Type: BLOOD SPECIMEN Performed By: #### 3 4528-0, 77685-0 ####[facility]ORATORYCLIA [id number] [place] [address] aPTT PPPon 11-15-2020 aPTT Coag (PPP) [Time] 63.6 s High 23.0-32.4 [facility] Comment on above: Order Comment: Speci men Type: BLOOD SPECIMEN Performed By: #### 1 4979-9 ####[facility]ORATORYCLIA [id number] [place] [address] aPTT Coag (PPP) [Time] 55.5 s High 23.0-32.4 [facility] Comment on above: Order Comment: Speci men Type: BLOOD SPECIMEN Performed By: #### 3 4528-0, 64590-0 ####[facility]ORATORYCLIA [id number] [place] [address] 2019 CORONAVIRUSon 1 SARS-CoV-2 (COVID-19) RNA SCAR+probe Ql (Unsp spec) Normal [facility] Comment on above: Performed By: #### C OVID ####[facility] LABCLIA [id number] [place] [address] Basic metabolic 2000 panelon 11-14-2020 Anion gap [Moles/Vol] 10 mmol/L Normal 9-18 [facility] Comment on above: Order Comment: Speci men Type: BLOOD SPECIMEN Performed By: #### 1 9123-9, 74820-3 ####[facility]ORATORYCLIA [id number] [place] [address] Calcium [Mass/Vol] 8.7 mg/dL Normal 8.5-10.2 [facility] Comment on above: Order Comment: Speci men Type: BLOOD SPECIMEN Performed By: #### 1 9123-9, 20026-4 ####[facility]ORATORYCLIA [id number] [place] [address] Chloride [Moles/Vol] 104 mmol/L Normal 97-105 [facility] Comment on above: Order Comment: Speci men Type: BLOOD SPECIMEN Performed By: #### 1 9123-9, 41788-4 ####[facility]ORATORYCLIA [id number] [place] [address] CO2 [Moles/Vol] 22 mmol/L Normal 22-30 [facility] Comment on above: Order Comment: Speci men Type: BLOOD SPECIMEN Performed By: #### 1 9123-9, 53409-8 ####[facility]ORATORYCLIA [id number] [place] [address] Creatinine [Mass/Vol] 0.87 mg/dL Normal 0.73-1.22 [facility] Comment on above: Order Comment: Speci men Type: BLOOD SPECIMEN Performed By: #### 1 9123-9, 55342-5 ####[facility] LABORATORYCLIA [id number] [place] [address] GFR/1.73 sq M.predicted MDRD (S/P/Bld) [Vol rate/Area] mL/min/{1.73_m2} Normal [facility] Comment on above: Order Comment: Speci men Type: BLOOD SPECIMEN Result Comment: >60e GFR (Estimated GFR) Units of measure: mL/min/1.73 meters squaredeGFR is derived from the reexpressed MDRD Study equation using the following parameters: serum creatinine, age, gender and race. The creatinine assay has been calibrated to be traceable to IDMS. An eGFR <60 mL/min/1.73m2 for >3 months is consistent with chronic kidney disease. Refer to KDOQI guidelines for clinical interpretation. In patients with unstable renal function, e.g. those with acute kidney injury, the eGFR may not accurately reflect actual GFR. Performed By: #### 1 919, 92609-3 ####[facility] LABORATORYCLIA [id number] [place] [address] Glucose [Mass/Vol] 126 mg/dL High 74-99 [facility] Comment on above: Order Comment: Speci men Type: BLOOD SPECIMEN Result Comment: The [place] [employer] (ADA) provides guidance for cutoff values for fasting glucose and random glucose. The ADA defines fasting as no caloric intake for at least 8 hours. Fasting plasma glucose results between 100 to 125 mg/dL indicate increased risk for diabetes (prediabetes).Fasting plasma glucose results greater than or equal to 126 mg/dL meet the criteria for diagnosis of diabetes. In the absence of unequivocal hyperglycemia, results should be confirmed by repeat testing. In a patient with classic symptoms of hyperglycemia or hyperglycemic crisis, random plasma glucose results greater than or equal to 200 mg/dL meet the criteria for diagnosis of diabetes.Reference: Standards of Medical Care in Diabetes 2016, [place] [employer]. Diabetes Care. 2016.39(Suppl 1). Performed By: #### 1 9123-03, 99908-7 ####[facility] LABORATORYCLIA [id number] [place] [address] Potassium [Moles/Vol] 4.1 mmol/L Normal 3.7-5.1 [facility] Comment on above: Order Comment: Speci men Type: BLOOD SPECIMEN Performed By: #### 1 9123-03, 52965-0 ####[facility]ORATORYCLIA [id number] [place] [address] Sodium [Moles/Vol] 136 mmol/L Normal 136-144 [facility] Comment on above: Order Comment: Speci men Type: BLOOD SPECIMEN Performed By: #### 1 9123-03, 04612-9 ####[facility] LABORATORYCLIA [id number] [place] [address] Urea nitrogen [Mass/Vol] 31 mg/dL High 9-24 [facility] Comment on above: Order Comment: Speci men Type: BLOOD SPECIMEN Performed By: #### 1 9123-03, 78219-2 ####[facility]ATORYCLIA [id number] [place] [address] CASE MANAGEMon 11-14-2020 CASE MANAGEM Normal [facility] CBC W Auto Differential pane l (Bld)on 11-14-2020 Basophils (Bld) [#/Vol] 0.04 10*3/uL Normal <0.11 [facility] Comment on above: Order Comment: Speci men Type: BLOOD SPECIMEN Performed By: #### 5 7021-8 ####[facility]ATORYCLIA [id number] [place] [address] Basophils/100 WBC (Bld) 0.7 % Normal [facility] Comment on above: Order Comment: Speci men Type: BLOOD SPECIMEN Performed By: #### 5 7021-8 ####[facility]ATORYCLIA [id number] [place] [address] Differential cell count method Nom (Bld) Auto Normal [facility] Comment on above: Order Comment: Speci men Type: BLOOD SPECIMEN Performed By: #### 5 7021-8 ####[facility]ATORYCLIA [id number] [place] [address] Eosinophils (Bld) [#/Vol] 0.13 10*3/uL Normal <0.46 [facility] Comment on above: Order Comment: Speci men Type: BLOOD SPECIMEN Performed By: #### 5 7021-8 ####[facility]ORYCLIA [id number] [place] [address] Eosinophils/100 WBC (Bld) 2.3 % Normal [facility] Comment on above: Order Comment: Speci men Type: BLOOD SPECIMEN Performed By: #### 5 7021-8 ####[facility]ORYCLIA [id number] [place] [address] Erythrocyte distribution width (RBC) [Ratio] 16.7 % High 11.5-15.0 [facility] Comment on above: Order Comment: Speci men Type: BLOOD SPECIMEN Performed By: #### 5 7021-8 ####[facility]ORYCLIA [id number] [place] [address] Hematocrit (Bld) [Volume fraction] 27.0 % Low 39.0-51.0 [facility] Comment on above: Order Comment: Speci men Type: BLOOD SPECIMEN Performed By: #### 5 7021-8 ####[facility]ORATORYCLIA [id number] [place] [address] Hemoglobin (Bld) [Mass/Vol] 8.1 g/dL Low 13.0-17.0 [facility] Comment on above: Order Comment: Speci men Type: BLOOD SPECIMEN Performed By: #### 5 7021-8 ####[facility]ORATORYCLIA [id number] [place] [address] IMMATURE GRAN % 0.3 % Normal [facility] Comment on above: Order Comment: Speci men Type: BLOOD SPECIMEN Performed By: #### 5 7021-8 ####[facility]ORATORYCLIA [id number] [place] [address] IMMATURE GRAN ABS <0.03 Normal <0.10 [facility] Comment on above: Order Comment: Speci men Type: BLOOD SPECIMEN Performed By: #### 5 7021-8 ####[facility]ORATORYCLIA [id number] [place] [address] Lymphocytes (Bld) [#/Vol] 1.69 10*3/uL Normal 1.00-4.00 [facility] Comment on above: Order Comment: Speci men Type: BLOOD SPECIMEN Performed By: #### 5 7021-8 ####[facility]ORATORYCLIA [id number] [place] [address] Lymphocytes/100 WBC (Bld) 29.5 % Normal [facility] Comment on above: Order Comment: Speci men Type: BLOOD SPECIMEN Performed By: #### 5 7021-8 ####[facility]ORATORYCLIA [id number] [place] [address] MCH (RBC) [Entitic mass] 24.5 pg Low 26.0-34.0 [facility] Comment on above: Order Comment: Speci men Type: BLOOD SPECIMEN Performed By: #### 5 7021-8 ####[facility]ORYCLIA [id number] [place] [address] MCHC (RBC) [Mass/Vol] 30.0 g/dL Low 30.5-36.0 [facility] Comment on above: Order Comment: Speci men Type: BLOOD SPECIMEN Performed By: #### 5 7021-8 ####[facility]ORYCLIA [id number] [place] [address] MCV (RBC) [Entitic vol] 81.6 fL Normal 80.0-100.0 [facility] Comment on above: Order Comment: Speci men Type: BLOOD SPECIMEN Performed By: #### 5 7021-8 ####[facility]ORATORYCLIA [id number] [place] [address] Monocytes (Bld) [#/Vol] 0.75 10*3/uL Normal <0.87 [facility] Comment on above: Order Comment: Speci men Type: BLOOD SPECIMEN Performed By: #### 5 7021-8 ####[facility]ORATORYCLIA [id number] [place] [address] Monocytes/100 WBC (Bld) 13.1 % Normal [facility] Comment on above: Order Comment: Speci men Type: BLOOD SPECIMEN Performed By: #### 5 7021-8 ####[facility]ORYCLIA [id number] [place] [address] Neutrophils (Bld) [#/Vol] 3.09 10*3/uL Normal 1.45-7.50 [facility] Comment on above: Order Comment: Speci men Type: BLOOD SPECIMEN Performed By: #### 5 7021-8 ####[facility]ORYCLIA [id number] [place] [address] Neutrophils/100 WBC (Bld) 54.1 % Normal [facility] Comment on above: Order Comment: Speci men Type: BLOOD SPECIMEN Performed By: #### 5 7021-8 ####[facility]ORYCLIA [id number] [place] [address] Nucleated RBC (Bld) [#/Vol] 10*3/uL Normal <0.01 [facility] Comment on above: Order Comment: Speci men Type: BLOOD SPECIMEN Performed By: #### 5 7021-8 ####[facility]ORATORYCLIA [id number] [place] [address] Nucleated RBC/100 WBC (Bld) [Ratio] 0.0 /100 WBC Normal 0.0 [facility] Comment on above: Order Comment: Speci men Type: BLOOD SPECIMEN Performed By: #### 5 7021-8 ####[facility]ATORYCLIA [id number] [place] [address] Platelet mean volume (Bld) [Entitic vol] 10.0 fL Normal 9.0-12.7 [facility] Comment on above: Order Comment: Speci men Type: BLOOD SPECIMEN Performed By: #### 5 7021-8 ####[facility]ORATORYCLIA [id number] [place] [address] Platelets (Bld) [#/Vol] 303 10*3/uL Normal 150-400 [facility] Comment on above: Order Comment: Speci men Type: BLOOD SPECIMEN Performed By: #### 5 7021-8 ####[facility]ATORYCLIA [id number] [place] [address] RBC (Bld) [#/Vol] 3.31 10*6/uL Low 4.20-6.00 [facility] Comment on above: Order Comment: Speci men Type: BLOOD SPECIMEN Performed By: #### 5 7021-8 ####[facility]ORATORYCLIA [id number] [place] [address] WBC (Bld) [#/Vol] 5.72 10*3/uL Normal 3.70-11.00 [facility] Comment on above: Order Comment: Speci men Type: BLOOD SPECIMEN Performed By: #### 5 7021-8 ####[facility]ORATORYCLIA [id number] [place] [address] CBC panel Auto (Bld)on 11-14 Erythrocyte distribution width (RBC) [Ratio] 16.6 % High 11.5-15.0 [facility] Comment on above: Order Comment: Speci men Type: BLOOD SPECIMEN Performed By: #### 5 8410-2 ####[facility]ORATORYCLIA [id number] [place] [address] Hematocrit (Bld) [Volume fraction] 27.2 % Low 39.0-51.0 [facility] Comment on above: Order Comment: Speci men Type: BLOOD SPECIMEN Performed By: #### 5 8410-2 ####[facility]ATORYCLIA [id number] [place] [address] Hemoglobin (Bld) [Mass/Vol] 8.3 g/dL Low 13.0-17.0 [facility] Comment on above: Order Comment: Speci men Type: BLOOD SPECIMEN Performed By: #### 5 8410-2 ####[facility]ATORYCLIA [id number] [place] [address] MCH (RBC) [Entitic mass] 24.9 pg Low 26.0-34.0 [facility] Comment on above: Order Comment: Speci men Type: BLOOD SPECIMEN Performed By: #### 5 8410-2 ####[facility]ATORYCLIA [id number] [place] [address] MCHC (RBC) [Mass/Vol] 30.5 g/dL Normal 30.5-36.0 [facility] Comment on above: Order Comment: Speci men Type: BLOOD SPECIMEN Performed By: #### 5 8410-2 ####[facility] LABORATORYCLIA [id number] [place] [address] MCV (RBC) [Entitic vol] 81.7 fL Normal 80.0-100.0 [facility] Comment on above: Order Comment: Speci men Type: BLOOD SPECIMEN Performed By: #### 5 8410-2 ####[facility] LABORATORYCLIA [id number] [place] [address] Nucleated RBC (Bld) [#/Vol] 10*3/uL Normal <0.01 [facility] Comment on above: Order Comment: Speci men Type: BLOOD SPECIMEN Performed By: #### 5 8410-2 ####[facility] LABORATORYCLIA [id number] [place] [address] Platelet mean volume (Bld) [Entitic vol] 9.8 fL Normal 9.0-12.7 [facility] Comment on above: Order Comment: Speci men Type: BLOOD SPECIMEN Performed By: #### 5 8410-2 ####[facility] LABORATORYCLIA [id number] [place] [address] Platelets (Bld) [#/Vol] 334 10*3/uL Normal 150-400 [facility] Comment on above: Order Comment: Speci men Type: BLOOD SPECIMEN Performed By: #### 5 8410-2 ####[facility] LABORATORYCLIA [id number] [place] [address] RBC (Bld) [#/Vol] 3.33 10*6/uL Low 4.20-6.00 [facility] Comment on above: Order Comment: Speci men Type: BLOOD SPECIMEN Performed By: #### 5 8410-2 ####[facility] LABORATORYCLIA [id number] [place] [address] WBC (Bld) [#/Vol] 5.50 10*3/uL Normal 3.70-11.00 [facility] Comment on above: Order Comment: Speci men Type: BLOOD SPECIMEN Performed By: #### 5 8410-2 ####[facility] LABORATORYCLIA [id number] [place] [address] CONSULTon 11-14-2020 CONSULT Normal [facility] CONSULT PROGon 11-14-2020 CONSULT PROG Normal [facility] CONSULT PROG Normal [facility] CONSULT PROG Normal [facility] CONSULT PROG Normal [facility] Magnesium SerPl-mCncon 11-14 Magnesium [Mass/Vol] 2.0 mg/dL Normal 1.7-2.3 [facility] Comment on above: Order Comment: Speci men Type: BLOOD SPECIMEN Performed By: #### 1 9123-9, 98924-6 ####[facility] LABORATORYCLIA [id number] [place] [address] NURSING PROGon 11-14-2020 NURSING PROG Normal [facility] PT panel Coag (PPP)on 2020 INR Coag (PPP) [Relative time] 1.2 {INR} Normal 0.9-1.3 [facility] Comment on above: Order Comment: Speci men Type: BLOOD SPECIMEN Result Comment: Aislinn min K Antagonist (VKA) Therapeutic Range: INR 2 to 3 (Target INR of 2.5)Note: For patients treated with VKA drugs, such as warfarin, the [place] [employer] 2012 Guideline recommends a therapeutic INR range of 2 to 3 (target INR of 2.5). This recommendation includes high-risk patients with antiphospholipid syndrome with previous arterial or venous thromboembolism, current-generation mechanical or bioprosthetic aortic heart valve replacement.Note: Patients with mechanical aortic valve replacement and additional risk factors for thromboembolic events (atrial fibrillation, previous thromboembolism, LV dysfunction, hypercoagulable conditions) or an older generation mechanical AVR (i.e., ball in-Cage) or any mechanical MVR should have a INR therapeutic range of 2.5 to 3.5 (target INR of 3).Nan GH, et al. Chest 2012, 141:7S-47SNishimanil RA, et al. [facility] 2017, 70: 252-289 Performed By: #### 3 4528-0, 81002-6 ####[facility] LABORATORYCLIA [id number] [place] [address] PT Coag (PPP) [Time] 12.4 s Normal 9.7-13.0 [facility] Comment on above: Order Comment: Speci men Type: BLOOD SPECIMEN Performed By: #### 3 4528-0, 82839-7 ####[facility]ATORYCLIA [id number] [place] [address] INR Coag (PPP) [Relative time] 1.3 {INR} Normal 0.9-1.3 [facility] Comment on above: Order Comment: Speci men Type: BLOOD SPECIMEN Result Comment: Aislinn min K Antagonist (VKA) Therapeutic Range: INR 2 to 3 (Target INR of 2.5)Note: For patients treated with VKA drugs, such as warfarin, the [place] [employer] 2012 Guideline recommends a therapeutic INR range of 2 to 3 (target INR of 2.5). This recommendation includes high-risk patients with antiphospholipid syndrome with previous arterial or venous thromboembolism, current-generation mechanical or bioprosthetic aortic heart valve replacement.Note: Patients with mechanical aortic valve replacement and additional risk factors for thromboembolic events (atrial fibrillation, previous thromboembolism, LV dysfunction, hypercoagulable conditions) or an older generation mechanical AVR (i.e., ball in-Cage) or any mechanical MVR should have a INR therapeutic range of 2.5 to 3.5 (target INR of 3).Nan GH, et al. Chest 2012, 141:7S-47SNishimura RA, et al. [facility] 2017, 70: 252-289 Performed By: #### 3 4528-0 ####[facility] LABORATORYCLIA [id number] [place] [address] PT Coag (PPP) [Time] 13.1 s High 9.7-13.0 [facility] Comment on above: Order Comment: Speci men Type: BLOOD SPECIMEN Performed By: #### 3 4528-0 ####[facility]ORATORYCLIA [id number] [place] [address] THERAPY NTon 11-14-2020 THERAPY NT Normal [facility] THERAPY NT Normal [facility] aPTT PPPon 11-14-2020 aPTT Coag (PPP) [Time] 31.0 s Normal 23.0-32.4 [facility] Comment on above: Order Comment: Speci men Type: BLOOD SPECIMEN Performed By: #### 3 4528-0, 75911-8 ####[facility] LABORATORYCLIA [id number] [place] [address] ALLIED HEALTHon 11-13-2020 ALLIED HEALTH Normal [facility] Bacteria Spec Resp Culton Bacteria identified Respiratory culture Nom (Unsp spec) CULTURE, RESPIRATORY: Few Normal respiratory ned present GRAM STAIN: Moderate Mixed oral ned Many Polymorphonuclear leukocytes Few Epithelial cells Normal [facility] Comment on above: Performed By: #### 3 2355-0 ####[facility]ATORYCLIA [id number] [place] [address] Bacteria Wnd Culton 11-14-19 21 Bacteria identified Cx Nom (Wound) Abnormal [facility] Comment on above: Performed By: #### 6 462-6 ####[facility]ATORYCLIA [id number] [place] [address] Basic metabolic 2000 panelon 11-13-2020 Anion gap [Moles/Vol] 13 mmol/L Normal 9-18 [facility] Comment on above: Order Comment: Speci men Type: BLOOD SPECIMEN Performed By: #### 2 4320-08, 1987-11 ####[facility]ATORYCLIA [id number] [place] [address] Calcium [Mass/Vol] 9.4 mg/dL Normal 8.5-10.2 [facility] Comment on above: Order Comment: Speci men Type: BLOOD SPECIMEN Performed By: #### 2 4320-08, 1987-11 ####[facility]ATORYCLIA [id number] [place] [address] Chloride [Moles/Vol] 101 mmol/L Normal 97-105 [facility] Comment on above: Order Comment: Speci men Type: BLOOD SPECIMEN Performed By: #### 2 4320-08, 1987-11 ####[facility]ATORYCLIA [id number] [place] [address] CO2 [Moles/Vol] 22 mmol/L Normal 22-30 [facility] Comment on above: Order Comment: Speci men Type: BLOOD SPECIMEN Performed By: #### 2 4320-08, 1987-11 ####[facility] LABORATORYCLIA [id number] [place] [address] Creatinine [Mass/Vol] 0.69 mg/dL Low 0.73-1.22 [facility] Comment on above: Order Comment: Speci men Type: BLOOD SPECIMEN Performed By: #### 2 4320-08, 1987-11 ####[facility]ITALCLIA [id number] [place] [address] GFR/1.73 sq M.predicted MDRD (S/P/Bld) [Vol rate/Area] mL/min/{1.73_m2} Normal [facility] Comment on above: Order Comment: Speci men Type: BLOOD SPECIMEN Result Comment: >60e GFR (Estimated GFR) Units of measure: mL/min/1.73 meters squaredeGFR is derived from the reexpressed MDRD Study equation using the following parameters: serum creatinine, age, gender and race. The creatinine assay has been calibrated to be traceable to IDMS. An eGFR <60 mL/min/1.73m2 for >3 months is consistent with chronic kidney disease. Refer to KDOQI guidelines for clinical interpretation. In patients with unstable renal function, e.g. those with acute kidney injury, the eGFR may not accurately reflect actual GFR. Performed By: #### 2 43207-19, 1987-11 ####[facility]PITALIA [id number] [place] [address] Glucose [Mass/Vol] 141 mg/dL High 74-99 [facility] Comment on above: Order Comment: Speci men Type: BLOOD SPECIMEN Result Comment: The [place] Diabetes Association (ADA) provides guidance for cutoff values for fasting glucose and random glucose. The ADA defines fasting as no caloric intake for at least 8 hours. Fasting plasma glucose results between 100 to 125 mg/dL indicate increased risk for diabetes (prediabetes).Fasting plasma glucose results greater than or equal to 126 mg/dL meet the criteria for diagnosis of diabetes. In the absence of unequivocal hyperglycemia, results should be confirmed by repeat testing. In a patient with classic symptoms of hyperglycemia or hyperglycemic crisis, random plasma glucose results greater than or equal to 200 mg/dL meet the criteria for diagnosis of diabetes.Reference: Standards of Medical Care in Diabetes 2016, [place] [employer]. Diabetes Care. 2016.39(Suppl 1). Performed By: #### 2 43207-19, 1987-11 ####[facility]ORATORYCLIA [id number] [place] [address] Potassium [Moles/Vol] 3.9 mmol/L Normal 3.7-5.1 [facility] Comment on above: Order Comment: Speci men Type: BLOOD SPECIMEN Performed By: #### 2 43207-19, 1987-11 ####[facility]ORATORYCLIA [id number] [place] [address] Sodium [Moles/Vol] 136 mmol/L Normal 136-144 [facility] Comment on above: Order Comment: Speci men Type: BLOOD SPECIMEN Performed By: #### 2 43207-19, 1987-11 ####[facility]ORATORYCLIA [id number] [place] [address] Urea nitrogen [Mass/Vol] 15 mg/dL Normal 9-24 [facility] Comment on above: Order Comment: Speci men Type: BLOOD SPECIMEN Performed By: #### 2 4320-08, 1987-11 ####[facility]ORATORYCLIA [id number] [place] [address] CASE MGT INIT ASSESon 2020 CASE MGT INIT ASSES Normal [facility] CBC panel Auto (Bld)on 11-13 Erythrocyte distribution width (RBC) [Ratio] 16.8 % High 11.5-15.0 [facility] Comment on above: Order Comment: Speci men Type: BLOOD SPECIMEN Performed By: #### 5 8410-2 ####[facility]ATORYCLIA [id number] [place] [address] Hematocrit (Bld) [Volume fraction] 30.3 % Low 39.0-51.0 [facility] Comment on above: Order Comment: Speci men Type: BLOOD SPECIMEN Performed By: #### 5 8410-2 ####[facility]ATORYCLIA [id number] [place] [address] Hemoglobin (Bld) [Mass/Vol] 8.9 g/dL Low 13.0-17.0 [facility] Comment on above: Order Comment: Speci men Type: BLOOD SPECIMEN Performed By: #### 5 8410-2 ####[facility]ATORYCLIA [id number] [place] [address] MCH (RBC) [Entitic mass] 24.3 pg Low 26.0-34.0 [facility] Comment on above: Order Comment: Speci men Type: BLOOD SPECIMEN Performed By: #### 5 8410-2 ####[facility]ORATORYCLIA [id number] [place] [address] MCHC (RBC) [Mass/Vol] 29.4 g/dL Low 30.5-36.0 [facility] Comment on above: Order Comment: Speci men Type: BLOOD SPECIMEN Performed By: #### 5 8410-2 ####[facility]ORATORYCLIA [id number] [place] [address] MCV (RBC) [Entitic vol] 82.6 fL Normal 80.0-100.0 [facility] Comment on above: Order Comment: Speci men Type: BLOOD SPECIMEN Performed By: #### 5 8410-2 ####[facility]ORATORYCLIA [id number] [place] [address] Nucleated RBC (Bld) [#/Vol] 10*3/uL Normal <0.01 [facility] Comment on above: Order Comment: Speci men Type: BLOOD SPECIMEN Performed By: #### 5 8410-2 ####[facility]ORATORYCLIA [id number] [place] [address] Platelet mean volume (Bld) [Entitic vol] 9.7 fL Normal 9.0-12.7 [facility] Comment on above: Order Comment: Speci men Type: BLOOD SPECIMEN Performed By: #### 5 8410-2 ####[facility]ORATORYCLIA [id number] [place] [address] Platelets (Bld) [#/Vol] 312 10*3/uL Normal 150-400 [facility] Comment on above: Order Comment: Speci men Type: BLOOD SPECIMEN Performed By: #### 5 8410-2 ####[facility]ORATORYCLIA [id number] [place] [address] RBC (Bld) [#/Vol] 3.67 10*6/uL Low 4.20-6.00 [facility] Comment on above: Order Comment: Speci men Type: BLOOD SPECIMEN Performed By: #### 5 8410-2 ####[facility]ORATORYCLIA [id number] [place] [address] WBC (Bld) [#/Vol] 6.53 10*3/uL Normal 3.70-11.00 [facility] Comment on above: Order Comment: Speci men Type: BLOOD SPECIMEN Performed By: #### 5 8410-2 ####[facility]ORATORYCLIA [id number] [place] [address] CONSULTon 11-13-2020 CONSULT Normal [facility] CONSULT PROGon 11-13-2020 CONSULT PROG Normal [facility] CONSULT PROG Normal [facility] CONSULT PROG Normal [facility] CRP SerPl-mCncon 11-13-2020 CRP [Mass/Vol] 22.7 mg/dL High <0.9 [facility] Comment on above: Order Comment: Speci men Type: BLOOD SPECIMEN Performed By: #### 2 4321-2, 1987-11 ####[facility]ORATORYCLIA [id number] [place] [address] CT CHEST WO IVCONon 11-14-19 CT CHEST WO IVCON Normal [facility] ESR Westergren method (Bld) [Velocity]on 11-13-2020 ESR (Bld) [Velocity] 104 mm/h High 0-15 [facility] Comment on above: Order Comment: Speci men Type: BLOOD SPECIMEN Performed By: #### 4 537-7 ####[facility]ORATORYCLIA [id number] [place] [address] HISTORY PHYSICALon HISTORY PHYSICAL Normal [facility] Magnesium SerPl-mCncon 11-13 Magnesium [Mass/Vol] 1.9 mg/dL Normal 1.7-2.3 [facility] Comment on above: Order Comment: Speci men Type: BLOOD SPECIMEN Performed By: #### 1 9123-9 ####[facility]ORATORYCLIA [id number] [place] [address] NURSING PROGon 11-13-2020 NURSING PROG Normal [facility] NURSING PROG Normal [facility] NURSING PROG Normal [facility] NUTRITIONon 11-13-2020 NUTRITION Normal [facility] PT panel Coag (PPP)on 2020 INR Coag (PPP) [Relative time] 1.3 {INR} Normal 0.9-1.3 [facility] Comment on above: Order Comment: Speci men Type: BLOOD SPECIMEN Result Comment: Aislinn min K Antagonist (VKA) Therapeutic Range: INR 2 to 3 (Target INR of 2.5)Note: For patients treated with VKA drugs, such as warfarin, the [place] [employer] 2012 Guideline recommends a therapeutic INR range of 2 to 3 (target INR of 2.5). This recommendation includes high-risk patients with antiphospholipid syndrome with previous arterial or venous thromboembolism, current-generation mechanical or bioprosthetic aortic heart valve replacement.Note: Patients with mechanical aortic valve replacement and additional risk factors for thromboembolic events (atrial fibrillation, previous thromboembolism, LV dysfunction, hypercoagulable conditions) or an older generation mechanical AVR (i.e., ball in-Cage) or any mechanical MVR should have a INR therapeutic range of 2.5 to 3.5 (target INR of 3).Nan GH, et al. Chest 2012, 141:7S-47SNishellis RA, et al. [facility] 2017, 70: 252-289 Performed By: #### 3 4528-0 ####[facility]ORATORYCLIA [id number] [place] [address] PT Coag (PPP) [Time] 13.2 s High 9.7-13.0 [facility] Comment on above: Order Comment: Speci men Type: BLOOD SPECIMEN Performed By: #### 3 4528-0 ####[facility]ORATORYCLIA [id number] [place] [address] NURSING PROGon 11-12-2020 NURSING PROG Normal [facility] OT-Chest 1 View (Portable) I MPORTon 11-12-2020 OT-Chest 1 View (Portable) IMPORT Images were obtained outside of [facility] [id number] [facility] FRANKIFlor 10-31-2020 CNPN Telephone (INFDAK) SKY CORONEL ([id number]) 1950 M Date Time Provider Department 10/31/20 SHERRY MACEDO INFDAK During your visit today, we recorded the following information about you: [place] [facility]/31/2020 11:27 AM Signed CoPAT stop date of Tuesday11/04/2020 for Ertapenem 1g, patient needs PICC to continue Micafungin 100mg Follow up 11/21/2020 Sherry Macedo MD, MD 10/31/2020 11:31 AM Signed I agree. October HARVEY [place] [facility]/31/2020 12:09 PM Signed Kasandra (RN) with [place] has been advised of stop date for Ertapenem. Micafungin to continue through 03/21/2021 Allergies As of Date: 10/31/2020 (No Known Allergies) Date Reviewed: 10/30/2020 Reviewed by: Keila Sebastian) Burt - Fully Assessed Reason for Visit: CoPat Stop [1149] Prescriptions as of 10/31/2020 Sig: MICAFUNGIN IVPB 100 MG IN D5W* Inject 100 mg intravenously e* WARFARIN 3 MG TABLET Take 1 tablet by mouth once d* GLUCAGON HCL 1 MG/ML SOLUTION* Inject 1 mg intramuscularly a* DEXTROSE 40 % ORAL GEL Take 15 g by mouth as needed. DEXTROSE 50 % IN WATER (D50W)* Inject 25 mL intravenously as* GABAPENTIN 100 MG CAPSULE Take 2 capsules by mouth ever* ERTAPENEM IVPB 1 G IN NS 100 * Inject 100 mL intravenously e* INSULIN LISPRO (U-100) 100 UN* Inject 4 Units subcutaneously* POLYETHYLENE GLYCOL 3350 17 G* Take 1 Packet by mouth once d* SENNOSIDES 8.6 MG-DOCUSATE SO* Take 1 tablet by mouth twice * BISACODYL 10 MG RECTAL SUPPOS* 1 Suppository by RECTAL route* MAGNESIUM OXIDE 400 MG (241.3* Take 1 tablet by mouth once d* ASPIRIN 81 MG CHEWABLE TABLET Take 1 tablet by mouth once d* POTASSIUM CHLORIDE ER 20 MEQ * Take 1 tablet by mouth once d* INSULIN LISPRO (U-100) 100 UN* Inject 18 Units subcutaneousl* INSULIN GLARGINE (U-100) 100 * Inject 35 Units subcutaneousl* ATORVASTATIN 40 MG TABLET Take 1 tablet by mouth daily * FUROSEMIDE 40 MG TABLET Take 1 tablet by mouth once d* LISINOPRIL 5 MG TABLET Take 1 tablet by mouth once d* METFORMIN 500 MG TABLET Take 1 tablet by mouth twice * METOPROLOL SUCCINATE ER 50 MG* Take 1 tablet by mouth once d* SITAGLIPTIN 100 MG TABLET Take 1 tablet by mouth once d* ACETAMINOPHEN 500 MG TABLET Take 2 tablets by mouth every* Patient taking differently: Take 500 mg by mouth once tatyana* Problem List As Of Date 10/31/2020 Noted Resolved SEBACEOUS CYST [L72.3] 10/02/2008 Peripheral vascular disease, unspecified (HCC) *01/28/2009 ASA CLASS III [1003] 03/05/2009 Other Acute Postoperative Pain [G89.18] 03/31/2009 Generalized and Unspecified Atherosclerosis [I7*01/05/2010 SUMMARY [V999.95] 01/05/2010 Long-term (current) use of 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s, INR *01/03/2010 NSTEMI (non-ST elevated myocardial infarction) *04/26/2020 Nicotine use disorder, F17.2 [F17.200] 05/02/2020 Nonrheumatic aortic valve stenosis [I35.0] 05/11/2020 S/P AVR (aortic valve replacement) [Z95.2] 05/11/2020 S/P CABG x 2 [Z95.1] 05/11/2020 Acute on chronic systolic CHF (congestive heart*05/11/2020 Acute postoperative anemia due to expected bloo*05/11/2020 Leukocytosis [D72.829] 05/01/2020 05/10/2020 Coagulopathy (HCC) [D68.9] 05/01/2020 05/10/2020 Type 2 diabetes mellitus (HCC) [E11.9] 04/26/2020 Sternal wound infection [S21.101A, L08.9] 09/21/2020 Encounter Status:Closed by KHARIOctober on 10/31/[address] [facility] CNOVon 10-30-2020 CNOV Normal [facility] CNOVon 10-23-2020 CNOV Office Visit (INFDAK ) SKY CORONEL ([id number]) 1950 M Date Time Provider Department 10/23/20 11:00 AM SHERRY MACEDO INFDAK During your visit today, we recorded the following information about you: Temperature Pulse Respiration Blood pressure 98.5 degrees 81/minute 18/minute 112/61 Weight Height 87.5 kg 1.778 m Sherry Macedo MD, MD 10/23/2020 11:52 AM Signed - switching from diflucan to micafungin Sherry Macedo MD, MD 10/23/2020 6:39 PM Signed INFECTIOUS DISEASES OUTPATIENT FOLLOW-UP NOTE SERVICE DATE: 10/23/2020 Subjective INTERVAL HPI : This is a follow up visit. He was hospitalized from 09/21/2020 through 10/04/2020 for sternal wound infection. He has a history of mechanical AVR/CABG in April 2020. He underwent IANDD, removal of all sternal hardware, and wound VAC placement on 09/22/2020. Operative cultures grew Sebastian albicans and Sebastian glabrata. He was discharged from the hospital to a nursing facility on ertapenem for 6 weeks and Diflucan for 6 months. Currently the patient feels overall better. He has a wound VAC still sealing the sternal wound. He is getting IV ertapenem through right arm PICC line. He is on oral diflucan 400 mg per day. He is on Coumadin for mechanical aortic valve. His INR has been unstable with supratherapeutic levels. He is also on Lipitor.. Weekly safety monitoring labs were reviewed. Last WBC count was 5.2. Serum creatinine level was stable at 0.7. LFT was unremarkable. Normal appetite No n/v Has infrequent diarrhea No rashes No SOB No VALADEZ No cough No malaise Has some chest pain at the site of the sternal wound No joint pain ROS completed x14 and only pertinent data documented, the rest is negative except as documented above MEDICATIONS: Current Outpatient Medications Medication Sig - warfarin (COUMADIN) 3 mg tablet Take 1 tablet by mouth once daily. - glucagon 1 mg/mL injection Inject 1 mg intramuscularly as needed. - dextrose 40 % gel Take 15 g by mouth as needed. - dextrose 50% in water solution Inject 25 mL intravenously as needed. - gabapentin (NEURONTIN) 100 mg capsule Take 2 capsules by mouth every 12 hours for 30 days. - ertapenem (INVANZ) 1 g in NaCl 0.9% 100 mL Inject 100 mL intravenously every 24 hours. - insulin lispro (HUMALOG KWIKPEN) 100 unit/mL Inject 4 Units subcutaneously w MEALS. - polyethylene glycol 3350 (MIRALAX, GLYCOLAX) 17 gram packet Take 1 Packet by mouth once daily. - senna-docusate (SENNA-S) 8.6-50 mg per tablet Take 1 tablet by mouth twice daily. - bisacodyl (DULCOLAX) 10 mg supp 1 Suppository by RECTAL route as needed for up to 1 dose. - magnesium oxide (MAG-OX) 400 mg (241.3 mg magnesium) tablet Take 1 tablet by mouth once daily. - aspirin 81 mg chewable tablet Take 1 tablet by mouth once daily. - potassium chloride ER (K-DUR, KLOR-CON) 20 mEq tablet Take 1 tablet by mouth once daily. - insulin lispro (HUMALOG KWIKPEN) 100 unit/mL Inject 18 Units subcutaneously w MEALS. - insulin glargine (LANTUS SOLOSTAR, BASAGLAR KWIKPEN) 100 unit/mL (3 mL) Inject 35 Units subcutaneously once daily. - atorvastatin (LIPITOR) 40 mg tablet Take 1 tablet by mouth daily at bedtime. - furosemide (LASIX) 40 mg tablet Take 1 tablet by mouth once daily. - lisinopril (ZESTRIL, PRINIVIL) 5 mg tablet Take 1 tablet by mouth once daily. - metFORMIN (GLUCOPHAGE) 500 mg tablet Take 1 tablet by mouth twice daily with meals. - metoprolol succinate ER (TOPROL XL) 50 mg 24 hr tablet Take 1 tablet by mouth once daily. - sitaGLIPtin (JANUVIA) 100 mg tablet Take 1 tablet by mouth once daily. - acetaminophen (TYLENOL) 500 mg tablet Take 2 tablets by mouth every 6 hours. (Patient taking differently: Take 500 mg by mouth once daily. ) - micafungin 100 mg in D5W 100 mL MB+ (MYCAMINE) Inject 100 mg intravenously every 24 hours. No current facility-administered medications for this visit. Objective Social History Tobacco Use - Smoking status: Former Smoker Packs/day: 1.50 Years: 20.00 Pack years: 30.00 Types: Cigarettes Quit date: 04/2020 Years since quittin.5 - Smokeless tobacco: Never Used Vaping Use - Vaping Use: Never used Substance Use Topics - Alcohol use: Yes Comment: rarely - Drug use: Yes Comment: marijuana.coke/speed in past FAMILY HISTORY Problem Relation Age of Onset - other (Cerebral Aneurysms) Mother - other (Hypoglycemia) Sister - other (Dementia) Paternal Grandmother Heart - Heart Paternal Grandfather PHYSICAL EXAM PSYCHIATRIC: no apparent distress, oriented to time, place and person, appropriate affect, good judgment, good insight, memory intact SKIN: Sternal wound sealed with wound VAC, mild erythema of margins superiorly noted EYES: no scleral icterus, no conjunctivitis HEENT: normal inspection of teeth, lips, gums, and oropharynx NECK: normal appearan (more content not included)... Normal [facility] SKY CORONEL ([id number]) 1950 M Date Time Provider Department 10/23/20 SHERRY MACEDO INFDAK During your visit today, we recorded the following information about you: Alvaro Aquino 10/24/2020 4:17 PM Signed [employer] ([phone])- spoke with Kasandra. She will add Crp to weekly labs Notes faxed to [phone] Alvaro Garcia [facility] [place] [facility] [place]/29/2020 2:31 PM Signed Spoke with rPasad at [facility] and confirmed CRP was added to the weekly labs. She will fax it over Allergies As of Date: 10/23/2020 (No Known Allergies) Date Reviewed: 10/23/2020 Reviewed by: Nancy Diaz Ma - Fully Assessed Reason for Visit: Orders [681] Prescriptions as of 10/23/2020 Sig: MICAFUNGIN IVPB 100 MG IN D5W* Inject 100 mg intravenously e* WARFARIN 3 MG TABLET Take 1 tablet by mouth once d* GLUCAGON HCL 1 MG/ML SOLUTION* Inject 1 mg intramuscularly a* DEXTROSE 40 % ORAL GEL Take 15 g by mouth as needed. DEXTROSE 50 % IN WATER (D50W)* Inject 25 mL intravenously as* GABAPENTIN 100 MG CAPSULE Take 2 capsules by mouth ever* ERTAPENEM IVPB 1 G IN NS 100 * Inject 100 mL intravenously e* INSULIN LISPRO (U-100) 100 UN* Inject 4 Units subcutaneously* POLYETHYLENE GLYCOL 3350 17 G* Take 1 Packet by mouth once d* SENNOSIDES 8.6 MG-DOCUSATE SO* Take 1 tablet by mouth twice * BISACODYL 10 MG RECTAL SUPPOS* 1 Suppository by RECTAL route* MAGNESIUM OXIDE 400 MG (241.3* Take 1 tablet by mouth once d* ASPIRIN 81 MG CHEWABLE TABLET Take 1 tablet by mouth once d* POTASSIUM CHLORIDE ER 20 MEQ * Take 1 tablet by mouth once d* INSULIN LISPRO (U-100) 100 UN* Inject 18 Units subcutaneousl* INSULIN GLARGINE (U-100) 100 * Inject 35 Units subcutaneousl* ATORVASTATIN 40 MG TABLET Take 1 tablet by mouth daily * FUROSEMIDE 40 MG TABLET Take 1 tablet by mouth once d* LISINOPRIL 5 MG TABLET Take 1 tablet by mouth once d* METFORMIN 500 MG TABLET Take 1 tablet by mouth twice * METOPROLOL SUCCINATE ER 50 MG* Take 1 tablet by mouth once d* SITAGLIPTIN 100 MG TABLET Take 1 tablet by mouth once d* ACETAMINOPHEN 500 MG TABLET Take 2 tablets by mouth every* Patient taking differently: Take 500 mg by mouth once tatyana* Problem List As Of Date 10/23/2020 Noted Resolved SEBACEOUS CYST [L72.3] 10/02/2008 Peripheral vascular disease, unspecified (HCC) *01/28/2009 ASA CLASS III [1003] 03/05/2009 Other Acute Postoperative Pain [G89.18] 03/31/2009 Generalized and Unspecified Atherosclerosis [I7*01/05/2010 SUMMARY [V999.95] 01/05/2010 Long-term (current) use of 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s, INR *01/03/2010 NSTEMI (non-ST elevated myocardial infarction) *04/26/2020 Nicotine use disorder, F17.2 [F17.200] 05/02/2020 Nonrheumatic aortic valve stenosis [I35.0] 05/11/2020 S/P AVR (aortic valve replacement) [Z95.2] 05/11/2020 S/P CABG x 2 [Z95.1] 05/11/2020 Acute on chronic systolic CHF (congestive heart*05/11/2020 Acute postoperative anemia due to expected bloo*05/11/2020 Leukocytosis [D72.829] 05/01/2020 05/10/2020 Coagulopathy (HCC) [D68.9] 05/01/2020 05/10/2020 Type 2 diabetes mellitus (HCC) [E11.9] 04/26/2020 Sternal wound infection [S21.101A, L08.9] 09/21/2020 Encounter Status:Closed by SHERRY MACEDO MD on 10/23/[address] [facility] CNOVon 10-10-2020 CNOV Normal [facility] CNPNon 10-07-2020 CNPN Normal [facility] Basic metabolic 2000 panelon 10-04-2020 Anion gap [Moles/Vol] 6 mmol/L Low 9-18 [facility] Comment on above: Order Comment: Speci men Type: BLOOD SPECIMEN Performed By: #### 2 4321-2 ####[facility]ATORYCLIA [id number] [place] [address] Calcium [Mass/Vol] 8.9 mg/dL Normal 8.5-10.2 [facility] Comment on above: Order Comment: Speci men Type: BLOOD SPECIMEN Performed By: #### 2 4321-2 ####[facility]ORATORYCLIA [id number] [place] [address] Chloride [Moles/Vol] 106 mmol/L High 97-105 [facility] Comment on above: Order Comment: Speci men Type: BLOOD SPECIMEN Performed By: #### 2 4321-2 ####[facility]ORATORYCLIA [id number] [place] [address] CO2 [Moles/Vol] 26 mmol/L Normal 22-30 [facility] Comment on above: Order Comment: Speci men Type: BLOOD SPECIMEN Performed By: #### 2 4321-2 ####[facility]ORATORYCLIA [id number] [place] [address] Creatinine [Mass/Vol] 0.73 mg/dL Normal 0.73-1.22 [facility] Comment on above: Order Comment: Speci men Type: BLOOD SPECIMEN Performed By: #### 2 4321-2 ####[facility]ATORYCLIA [id number] [place] [address] GFR/1.73 sq M.predicted MDRD (S/P/Bld) [Vol rate/Area] mL/min/{1.73_m2} Normal [facility] Comment on above: Order Comment: Speci men Type: BLOOD SPECIMEN Result Comment: >60e GFR (Estimated GFR) Units of measure: mL/min/1.73 meters squaredeGFR is derived from the reexpressed MDRD Study equation using the following parameters: serum creatinine, age, gender and race. The creatinine assay has been calibrated to be traceable to IDMS. An eGFR <60 mL/min/1.73m2 for >3 months is consistent with chronic kidney disease. Refer to KDOQI guidelines for clinical interpretation. In patients with unstable renal function, e.g. those with acute kidney injury, the eGFR may not accurately reflect actual GFR. Performed By: #### 2 4321-2 ####[facility]ATORYCLIA [id number] [place] [address] Glucose [Mass/Vol] 142 mg/dL High 74-99 [facility] Comment on above: Order Comment: Speci men Type: BLOOD SPECIMEN Result Comment: The [place] Diabetes Association (ADA) provides guidance for cutoff values for fasting glucose and random glucose. The ADA defines fasting as no caloric intake for at least 8 hours. Fasting plasma glucose results between 100 to 125 mg/dL indicate increased risk for diabetes (prediabetes).Fasting plasma glucose results greater than or equal to 126 mg/dL meet the criteria for diagnosis of diabetes. In the absence of unequivocal hyperglycemia, results should be confirmed by repeat testing. In a patient with classic symptoms of hyperglycemia or hyperglycemic crisis, random plasma glucose results greater than or equal to 200 mg/dL meet the criteria for diagnosis of diabetes.Reference: Standards of Medical Care in Diabetes 2016, [place] Diabetes Association. Diabetes Care. 2016.39(Suppl 1). Performed By: #### 2 4321-2 ####[facility]ORATORYCLIA [id number] [place] [address] Potassium [Moles/Vol] 4.4 mmol/L Normal 3.7-5.1 [facility] Comment on above: Order Comment: Speci men Type: BLOOD SPECIMEN Performed By: #### 2 4321-2 ####[facility]ORATORYCLIA [id number] [place] [address] Sodium [Moles/Vol] 138 mmol/L Normal 136-144 [facility] Comment on above: Order Comment: Speci men Type: BLOOD SPECIMEN Performed By: #### 2 4321-2 ####[facility]ORATORYCLIA [id number] [place] [address] Urea nitrogen [Mass/Vol] 31 mg/dL High 9-24 [facility] Comment on above: Order Comment: Speci men Type: BLOOD SPECIMEN Performed By: #### 2 4321-2 ####[facility]ORATORYCLIA [id number] [place] [address] CASE MANAGEMon 10-04-2020 CASE MANAGEM Normal [facility] CBC panel Auto (Bld)on 10-04 Erythrocyte distribution width (RBC) [Ratio] 19.6 % High 11.5-15.0 [facility] Comment on above: Order Comment: Speci men Type: BLOOD SPECIMEN Performed By: #### 5 8410-2 ####[facility]ATORYCLIA [id number] [place] [address] Hematocrit (Bld) [Volume fraction] 24.6 % Low 39.0-51.0 [facility] Comment on above: Order Comment: Speci men Type: BLOOD SPECIMEN Performed By: #### 5 8410-2 ####[facility]ATORYCLIA [id number] [place] [address] Hemoglobin (Bld) [Mass/Vol] 7.4 g/dL Low 13.0-17.0 [facility] Comment on above: Order Comment: Speci men Type: BLOOD SPECIMEN Performed By: #### 5 8410-2 ####[facility]ATORYCLIA [id number] [place] [address] MCH (RBC) [Entitic mass] 24.8 pg Low 26.0-34.0 [facility] Comment on above: Order Comment: Speci men Type: BLOOD SPECIMEN Performed By: #### 5 8410-2 ####[facility]ATORYCLIA [id number] [place] [address] MCHC (RBC) [Mass/Vol] 30.1 g/dL Low 30.5-36.0 [facility] Comment on above: Order Comment: Speci men Type: BLOOD SPECIMEN Performed By: #### 5 8410-2 ####[facility]ORATORYCLIA [id number] [place] [address] MCV (RBC) [Entitic vol] 82.6 fL Normal 80.0-100.0 [facility] Comment on above: Order Comment: Speci men Type: BLOOD SPECIMEN Performed By: #### 5 8410-2 ####[facility]ORATORYCLIA [id number] [place] [address] Nucleated RBC (Bld) [#/Vol] 10*3/uL Normal <0.01 [facility] Comment on above: Order Comment: Speci men Type: BLOOD SPECIMEN Performed By: #### 5 8410-2 ####[facility]ATORYCLIA [id number] [place] [address] Platelet mean volume (Bld) [Entitic vol] 10.1 fL Normal 9.0-12.7 [facility] Comment on above: Order Comment: Speci men Type: BLOOD SPECIMEN Performed By: #### 5 8410-2 ####[facility]ORATORYCLIA [id number] [place] [address] Platelets (Bld) [#/Vol] 305 10*3/uL Normal 150-400 [facility] Comment on above: Order Comment: Speci men Type: BLOOD SPECIMEN Performed By: #### 5 8410-2 ####[facility]ATORYCLIA [id number] [place] [address] RBC (Bld) [#/Vol] 2.98 10*6/uL Low 4.20-6.00 [facility] Comment on above: Order Comment: Speci men Type: BLOOD SPECIMEN Performed By: #### 5 8410-2 ####[facility]ATORYCLIA [id number] [place] [address] WBC (Bld) [#/Vol] 5.64 10*3/uL Normal 3.70-11.00 [facility] Comment on above: Order Comment: Speci men Type: BLOOD SPECIMEN Performed By: #### 5 8410-2 ####[facility]ORATORYCLIA [id number] [place] [address] CNDSon 10-04-2020 CNDS Normal [facility] CONSULT PROGon 10-04-2020 CONSULT PROG Normal [facility] PT panel Coag (PPP)on 2020 INR Coag (PPP) [Relative time] 2.3 {INR} High 0.9-1.3 [facility] Comment on above: Order Comment: Speci men Type: BLOOD SPECIMEN Result Comment: Aislinn min K Antagonist (VKA) Therapeutic Range: INR 2 to 3 (Target INR of 2.5)Note: For patients treated with VKA drugs, such as warfarin, the [place] [employer]icians 2012 Guideline recommends a therapeutic INR range of 2 to 3 (target INR of 2.5). This recommendation includes high-risk patients with antiphospholipid syndrome with previous arterial or venous thromboembolism, current-generation mechanical or bioprosthetic aortic heart valve replacement.Note: Patients with mechanical aortic valve replacement and additional risk factors for thromboembolic events (atrial fibrillation, previous thromboembolism, LV dysfunction, hypercoagulable conditions) or an older generation mechanical AVR (i.e., ball in-Cage) or any mechanical MVR should have a INR therapeutic range of 2.5 to 3.5 (target INR of 3).Nan GH, et al. Chest 2012, 141:7S-47SNishellis RA, et al. [facility] 2017, 70: 252-289 Performed By: #### 3 4528-0, 99821-1 ####[facility]ORATORYCLIA [id number] [place] [address] PT Coag (PPP) [Time] 22.8 s High 9.7-13.0 [facility] Comment on above: Order Comment: Speci men Type: BLOOD SPECIMEN Performed By: #### 3 4528-0, 79046-7 ####[facility]ORATORYCLIA [id number] [place] [address] aPTT PPPon 10-04-2020 aPTT Coag (PPP) [Time] 76.4 s High 23.0-32.4 [facility] Comment on above: Order Comment: Speci men Type: BLOOD SPECIMEN Performed By: #### 3 4528-0, 35142-2 ####[facility]ORATORYCLIA [id number] [place] [address] Basic metabolic 2000 panelon 10-03-2020 Anion gap [Moles/Vol] 9 mmol/L Normal 9-18 [facility] Comment on above: Order Comment: Speci men Type: BLOOD SPECIMEN Performed By: #### 2 4321-2 ####[facility]ORATORYCLIA [id number] [place] [address] Calcium [Mass/Vol] 8.9 mg/dL Normal 8.5-10.2 [facility] Comment on above: Order Comment: Speci men Type: BLOOD SPECIMEN Performed By: #### 2 4321-2 ####[facility]ATORYCLIA [id number] [place] [address] Chloride [Moles/Vol] 107 mmol/L High 97-105 [facility] Comment on above: Order Comment: Speci men Type: BLOOD SPECIMEN Performed By: #### 2 4321-2 ####[facility]ATORYCLIA [id number] [place] [address] CO2 [Moles/Vol] 25 mmol/L Normal 22-30 [facility] Comment on above: Order Comment: Speci men Type: BLOOD SPECIMEN Performed By: #### 2 4321-2 ####[facility]ATORYCLIA [id number] [place] [address] Creatinine [Mass/Vol] 0.80 mg/dL Normal 0.73-1.22 [facility] Comment on above: Order Comment: Speci men Type: BLOOD SPECIMEN Performed By: #### 2 4321-2 ####[facility]ORATORYCLIA [id number] [place] [address] GFR/1.73 sq M.predicted MDRD (S/P/Bld) [Vol rate/Area] mL/min/{1.73_m2} Normal [facility] Comment on above: Order Comment: Speci men Type: BLOOD SPECIMEN Result Comment: >60e GFR (Estimated GFR) Units of measure: mL/min/1.73 meters squaredeGFR is derived from the reexpressed MDRD Study equation using the following parameters: serum creatinine, age, gender and race. The creatinine assay has been calibrated to be traceable to IDMS. An eGFR <60 mL/min/1.73m2 for >3 months is consistent with chronic kidney disease. Refer to KDOQI guidelines for clinical interpretation. In patients with unstable renal function, e.g. those with acute kidney injury, the eGFR may not accurately reflect actual GFR. Performed By: #### 2 4321-2 ####[facility]ORATORYCLIA [id number] [place] [address] Glucose [Mass/Vol] 134 mg/dL High 74-99 [facility] Comment on above: Order Comment: Speci men Type: BLOOD SPECIMEN Result Comment: The [place] Diabetes Association (ADA) provides guidance for cutoff values for fasting glucose and random glucose. The ADA defines fasting as no caloric intake for at least 8 hours. Fasting plasma glucose results between 100 to 125 mg/dL indicate increased risk for diabetes (prediabetes).Fasting plasma glucose results greater than or equal to 126 mg/dL meet the criteria for diagnosis of diabetes. In the absence of unequivocal hyperglycemia, results should be confirmed by repeat testing. In a patient with classic symptoms of hyperglycemia or hyperglycemic crisis, random plasma glucose results greater than or equal to 200 mg/dL meet the criteria for diagnosis of diabetes.Reference: Standards of Medical Care in Diabetes 2016, [place] Diabetes [employer]. Diabetes Care. 2016.39(Suppl 1). Performed By: #### 2 4321-2 ####[facility]ORATORYCLIA [id number] [place] [address] Potassium [Moles/Vol] 4.3 mmol/L Normal 3.7-5.1 [facility] Comment on above: Order Comment: Speci men Type: BLOOD SPECIMEN Performed By: #### 2 4321-2 ####[facility]ATORYCLIA [id number] [place] [address] Sodium [Moles/Vol] 141 mmol/L Normal 136-144 [facility] Comment on above: Order Comment: Speci men Type: BLOOD SPECIMEN Performed By: #### 2 4321-2 ####[facility]ORATORYCLIA [id number] [place] [address] Urea nitrogen [Mass/Vol] 31 mg/dL High 9-24 [facility] Comment on above: Order Comment: Speci men Type: BLOOD SPECIMEN Performed By: #### 2 4321-2 ####[facility]ORATORYCLIA [id number] [place] [address] CASE MANAGEMon 10-03-2020 CASE MANAGEM Normal [facility] CASE MANAGEM Normal [facility] CBC panel Auto (Bld)on 10-03 Erythrocyte distribution width (RBC) [Ratio] 19.8 % High 11.5-15.0 [facility] Comment on above: Order Comment: Speci men Type: BLOOD SPECIMEN Performed By: #### 5 8410-2 ####[facility]ATORYCLIA [id number] [place] [address] Hematocrit (Bld) [Volume fraction] 25.3 % Low 39.0-51.0 [facility] Comment on above: Order Comment: Speci men Type: BLOOD SPECIMEN Performed By: #### 5 8410-2 ####[facility]ATORYCLIA [id number] [place] [address] Hemoglobin (Bld) [Mass/Vol] 7.7 g/dL Low 13.0-17.0 [facility] Comment on above: Order Comment: Speci men Type: BLOOD SPECIMEN Performed By: #### 5 8410-2 ####[facility]ATORYCLIA [id number] [place] [address] MCH (RBC) [Entitic mass] 24.8 pg Low 26.0-34.0 [facility] Comment on above: Order Comment: Speci men Type: BLOOD SPECIMEN Performed By: #### 5 8410-2 ####[facility]ORATORYCLIA [id number] [place] [address] MCHC (RBC) [Mass/Vol] 30.4 g/dL Low 30.5-36.0 [facility] Comment on above: Order Comment: Speci men Type: BLOOD SPECIMEN Performed By: #### 5 8410-2 ####[facility]ATORYCLIA [id number] [place] [address] MCV (RBC) [Entitic vol] 81.6 fL Normal 80.0-100.0 [facility] Comment on above: Order Comment: Speci men Type: BLOOD SPECIMEN Performed By: #### 5 8410-2 ####[facility]ATORYCLIA [id number] [place] [address] Nucleated RBC (Bld) [#/Vol] 10*3/uL Normal <0.01 [facility] Comment on above: Order Comment: Speci men Type: BLOOD SPECIMEN Performed By: #### 5 8410-2 ####[facility]ATORYCLIA [id number] [place] [address] Platelet mean volume (Bld) [Entitic vol] 9.8 fL Normal 9.0-12.7 [facility] Comment on above: Order Comment: Speci men Type: BLOOD SPECIMEN Performed By: #### 5 8410-2 ####[facility]ATORYCLIA [id number] [place] [address] Platelets (Bld) [#/Vol] 303 10*3/uL Normal 150-400 [facility] Comment on above: Order Comment: Speci men Type: BLOOD SPECIMEN Performed By: #### 5 8410-2 ####[facility]ATORYCLIA [id number] [place] [address] RBC (Bld) [#/Vol] 3.10 10*6/uL Low 4.20-6.00 [facility] Comment on above: Order Comment: Speci men Type: BLOOD SPECIMEN Performed By: #### 5 8410-2 ####[facility]ATORYCLIA [id number] [place] [address] WBC (Bld) [#/Vol] 5.99 10*3/uL Normal 3.70-11.00 [facility] Comment on above: Order Comment: Speci men Type: BLOOD SPECIMEN Performed By: #### 5 8410-2 ####[facility]ATORYCLIA [id number] [place] [address] CONSULT PROGon 10-03-2020 CONSULT PROG Normal [facility] CONSULT PROG Normal [facility] PT panel Coag (PPP)on 2020 INR Coag (PPP) [Relative time] 2.0 {INR} High 0.9-1.3 [facility] Comment on above: Order Comment: Speci men Type: BLOOD SPECIMEN Result Comment: Aislinn min K Antagonist (VKA) Therapeutic Range: INR 2 to 3 (Target INR of 2.5)Note: For patients treated with VKA drugs, such as warfarin, the [place] [employer] 2012 Guideline recommends a therapeutic INR range of 2 to 3 (target INR of 2.5). This recommendation includes high-risk patients with antiphospholipid syndrome with previous arterial or venous thromboembolism, current-generation mechanical or bioprosthetic aortic heart valve replacement.Note: Patients with mechanical aortic valve replacement and additional risk factors for thromboembolic events (atrial fibrillation, previous thromboembolism, LV dysfunction, hypercoagulable conditions) or an older generation mechanical AVR (i.e., ball in-Cage) or any mechanical MVR should have a INR therapeutic range of 2.5 to 3.5 (target INR of 3).sterling Wall. Chest 2012, 141:7S-47SJessica BARRERA, et al. [facility] 2017, 70: 252-289 Performed By: #### 3 4528-0, 77823-5 ####[facility]ORATORYCLIA [id number] [place] [address] PT Coag (PPP) [Time] 20.2 s High 9.7-13.0 [facility] Comment on above: Order Comment: Speci men Type: BLOOD SPECIMEN Performed By: #### 3 4528-0, 43009-5 ####[facility]ATORYCLIA [id number] [place] [address] INR Coag (PPP) [Relative time] 1.9 {INR} High 0.9-1.3 [facility] Comment on above: Order Comment: Speci men Type: BLOOD SPECIMEN Result Comment: Aislinn min K Antagonist (VKA) Therapeutic Range: INR 2 to 3 (Target INR of 2.5)Note: For patients treated with VKA drugs, such as warfarin, the [place] [employer] 2012 Guideline recommends a therapeutic INR range of 2 to 3 (target INR of 2.5). This recommendation includes high-risk patients with antiphospholipid syndrome with previous arterial or venous thromboembolism, current-generation mechanical or bioprosthetic aortic heart valve replacement.Note: Patients with mechanical aortic valve replacement and additional risk factors for thromboembolic events (atrial fibrillation, previous thromboembolism, LV dysfunction, hypercoagulable conditions) or an older generation mechanical AVR (i.e., ball in-Cage) or any mechanical MVR should have a INR therapeutic range of 2.5 to 3.5 (target INR of 3).sterling Wall. Chest 2012, 141:7S-47SJessica BARRERA, et al. [facility] 2017, 70: 252-289 Performed By: #### 1 4979-9, 08276-9 ####[facility]ORATORYCLIA [id number] [place] [address] PT Coag (PPP) [Time] 19.1 s High 9.7-13.0 [facility] Comment on above: Order Comment: Speci men Type: BLOOD SPECIMEN Performed By: #### 1 4979-9, 40581-3 ####[facility]ORATORYCLIA [id number] [place] [address] SARS-CoV-2 RNA Resp Ql SCAR+p robeon 10-03-2020 SARS-CoV-2 (COVID-19) RNA SCAR+probe Ql (Resp) COVID 19 RESULT: SARS-CoV-2 (Agent of COVID-19) Not Detected by PCR. This test has been authorized by FDA under an Emergency Use Authorization (EUA) [facility] Comment on above: Performed By: #### 9 4500-6 ####[facility]ORATORYCLIA [id number] [place] [address] THERAPY NTon 10-03-2020 THERAPY NT [facility] aPTT PPPon 10-03-2020 aPTT Coag (PPP) [Time] 66.0 s High 23.0-32.4 [facility] Comment on above: Order Comment: Speci men Type: BLOOD SPECIMEN Performed By: #### 1 4979-9 ####[facility]ATORYCLIA [id number] [place] [address] aPTT Coag (PPP) [Time] 70.4 s High 23.0-32.4 [facility] Comment on above: Order Comment: Speci men Type: BLOOD SPECIMEN Performed By: #### 3 4528-0, 69370-5 ####[facility]ATORYCLIA [id number] [place] [address] aPTT Coag (PPP) [Time] 90.2 s High 23.0-32.4 [facility] Comment on above: Order Comment: Speci men Type: BLOOD SPECIMEN Performed By: #### 1 4979-9, 32852-1 ####[facility]ORATORYCLIA [id number] [place] [address] CBC panel Auto (Bld)on 10-02 Erythrocyte distribution width (RBC) [Ratio] 19.5 % High 11.5-15.0 [facility] Comment on above: Order Comment: Speci men Type: BLOOD SPECIMEN Performed By: #### 5 8410-2 ####[facility]ATORYCLIA [id number] [place] [address] Hematocrit (Bld) [Volume fraction] 25.2 % Low 39.0-51.0 [facility] Comment on above: Order Comment: Speci men Type: BLOOD SPECIMEN Performed By: #### 5 8410-2 ####[facility]ATORYCLIA [id number] [place] [address] Hemoglobin (Bld) [Mass/Vol] 7.6 g/dL Low 13.0-17.0 [facility] Comment on above: Order Comment: Speci men Type: BLOOD SPECIMEN Performed By: #### 5 8410-2 ####[facility]ORATORYCLIA [id number] [place] [address] MCH (RBC) [Entitic mass] 25.0 pg Low 26.0-34.0 [facility] Comment on above: Order Comment: Speci men Type: BLOOD SPECIMEN Performed By: #### 5 8410-2 ####[facility]ORATORYCLIA [id number] [place] [address] MCHC (RBC) [Mass/Vol] 30.2 g/dL Low 30.5-36.0 [facility] [facility] Comment on above: Order Comment: Speci men Type: BLOOD SPECIMEN Performed By: #### 5 8410-2 ####[facility]ORATORYCLIA [id number] [place] [address] MCV (RBC) [Entitic vol] 82.9 fL Normal 80.0-100.0 [facility] Comment on above: Order Comment: Speci men Type: BLOOD SPECIMEN Performed By: #### 5 8410-2 ####[facility] LABORATORYCLIA [id number] [place] [address] Nucleated RBC (Bld) [#/Vol] 10*3/uL Normal <0.01 [facility] Comment on above: Order Comment: Speci men Type: BLOOD SPECIMEN Performed By: #### 5 8410-2 ####[facility]ORATORYCLIA [id number] [place] [address] Platelet mean volume (Bld) [Entitic vol] 10.2 fL Normal 9.0-12.7 [facility] Comment on above: Order Comment: Speci men Type: BLOOD SPECIMEN Performed By: #### 5 8410-2 ####[facility]ORATORYCLIA [id number] [place] [address] Platelets (Bld) [#/Vol] 284 10*3/uL Normal 150-400 [facility] Comment on above: Order Comment: Speci men Type: BLOOD SPECIMEN Performed By: #### 5 8410-2 ####[facility]ORATORYCLIA [id number] [place] [address] RBC (Bld) [#/Vol] 3.04 10*6/uL Low 4.20-6.00 [facility] Comment on above: Order Comment: Speci men Type: BLOOD SPECIMEN Performed By: #### 5 8410-2 ####[facility]ORATORYCLIA [id number] [place] [address] WBC (Bld) [#/Vol] 5.59 10*3/uL Normal 3.70-11.00 [facility] Comment on above: Order Comment: Speci men Type: BLOOD SPECIMEN Performed By: #### 5 8410-2 ####[facility]ORATORYCLIA [id number] [place] [address] CONSULT PROGon 10-02-2020 CONSULT PROG Normal [facility] CONSULT PROG Normal [facility] Comprehensive metabolic 2000 panelon 10-02-2020 Albumin [Mass/Vol] 3.4 g/dL Low 3.9-4.9 [facility] Comment on above: Order Comment: Speci men Type: BLOOD SPECIMEN Performed By: #### 2 4323-8 ####[facility]ATORYCLIA [id number] [place] [address] ALP [Catalytic activity/Vol] 88 U/L Normal 38-113 [facility] Comment on above: Order Comment: Speci men Type: BLOOD SPECIMEN Performed By: #### 2 4323-8 ####[facility]ATORYCLIA [id number] [place] [address] ALT With P-5'-P [Catalytic activity/Vol] 14 U/L Normal 10-54 [facility] Comment on above: Order Comment: Speci men Type: BLOOD SPECIMEN Performed By: #### 2 4323-8 ####[facility]ATORYCLIA [id number] [place] [address] Anion gap [Moles/Vol] 9 mmol/L Normal 9-18 [facility] Comment on above: Order Comment: Speci men Type: BLOOD SPECIMEN Performed By: #### 2 4323-8 ####[facility]ATORYCLIA [id number] [place] [address] AST With P-5'-P [Catalytic activity/Vol] 17 U/L Normal 14-40 [facility] Comment on above: Order Comment: Speci men Type: BLOOD SPECIMEN Performed By: #### 2 4323-8 ####[facility]ATORYCLIA [id number] [place] [address] Bilirubin [Mass/Vol] 0.2 mg/dL Normal 0.2-1.3 [facility] Comment on above: Order Comment: Speci men Type: BLOOD SPECIMEN Performed By: #### 2 4323-8 ####[facility]ATORYCLIA [id number] [place] [address] Calcium [Mass/Vol] 9.0 mg/dL Normal 8.5-10.2 [facility] Comment on above: Order Comment: Speci men Type: BLOOD SPECIMEN Performed By: #### 2 4323-8 ####[facility]ATORYCLIA [id number] [place] [address] Chloride [Moles/Vol] 106 mmol/L High 97-105 [facility] Comment on above: Order Comment: Speci men Type: BLOOD SPECIMEN Performed By: #### 2 4323-8 ####[facility]ORATORYCLIA [id number] [place] [address] CO2 [Moles/Vol] 25 mmol/L Normal 22-30 [facility] Comment on above: Order Comment: Speci men Type: BLOOD SPECIMEN Performed By: #### 2 4323-8 ####[facility]ORATORYCLIA [id number] [place] [address] Creatinine [Mass/Vol] 0.71 mg/dL Low 0.73-1.22 [facility] Comment on above: Order Comment: Speci men Type: BLOOD SPECIMEN Performed By: #### 2 4323-8 ####[facility]ORATORYCLIA [id number] [place] [address] GFR/1.73 sq M.predicted MDRD (S/P/Bld) [Vol rate/Area] mL/min/{1.73_m2} Normal [facility] Comment on above: Order Comment: Speci men Type: BLOOD SPECIMEN Result Comment: >60e GFR (Estimated GFR) Units of measure: mL/min/1.73 meters squaredeGFR is derived from the reexpressed MDRD Study equation using the following parameters: serum creatinine, age, gender and race. The creatinine assay has been calibrated to be traceable to IDMS. An eGFR <60 mL/min/1.73m2 for >3 months is consistent with chronic kidney disease. Refer to KDOQI guidelines for clinical interpretation. In patients with unstable renal function, e.g. those with acute kidney injury, the eGFR may not accurately reflect actual GFR. Performed By: #### 2 4323-8 ####[facility]ORATORYCLIA [id number] [place] [address] Glucose [Mass/Vol] 118 mg/dL High 74-99 [facility] Comment on above: Order Comment: Speci men Type: BLOOD SPECIMEN Result Comment: The [place] Diabetes Association (ADA) provides guidance for cutoff values for fasting glucose and random glucose. The ADA defines fasting as no caloric intake for at least 8 hours. Fasting plasma glucose results between 100 to 125 mg/dL indicate increased risk for diabetes (prediabetes).Fasting plasma glucose results greater than or equal to 126 mg/dL meet the criteria for diagnosis of diabetes. In the absence of unequivocal hyperglycemia, results should be confirmed by repeat testing. In a patient with classic symptoms of hyperglycemia or hyperglycemic crisis, random plasma glucose results greater than or equal to 200 mg/dL meet the criteria for diagnosis of diabetes.Reference: Standards of Medical Care in Diabetes 2016, [place] [employer]. Diabetes Care. 2016.39(Suppl 1). Performed By: #### 2 4323-8 ####[facility]ORATORYCLIA [id number] [place] [address] Potassium [Moles/Vol] 4.3 mmol/L Normal 3.7-5.1 [facility] Comment on above: Order Comment: Speci men Type: BLOOD SPECIMEN Performed By: #### 2 4323-8 ####[facility]ORATORYCLIA [id number] [place] [address] Protein [Mass/Vol] 6.1 g/dL Low 6.3-8.0 [facility] Comment on above: Order Comment: Speci men Type: BLOOD SPECIMEN Performed By: #### 2 4323-8 ####[facility]ORATORYCLIA [id number] [place] [address] Sodium [Moles/Vol] 140 mmol/L Normal 136-144 [facility] Comment on above: Order Comment: Speci men Type: BLOOD SPECIMEN Performed By: #### 2 4323-8 ####[facility]ORATORYCLIA [id number] [place] [address] Urea nitrogen [Mass/Vol] 27 mg/dL High 9-24 [facility] Comment on above: Order Comment: Speci men Type: BLOOD SPECIMEN Performed By: #### 2 4323-8 ####[facility]ORATORYCLIA [id number] [place] [address] PT panel Coag (PPP)on 2020 INR Coag (PPP) [Relative time] 1.5 {INR} High 0.9-1.3 [facility] Comment on above: Order Comment: Speci men Type: BLOOD SPECIMEN Result Comment: Aislinn min K Antagonist (VKA) Therapeutic Range: INR 2 to 3 (Target INR of 2.5)Note: For patients treated with VKA drugs, such as warfarin, the [place] [employer] 2012 Guideline recommends a therapeutic INR range of 2 to 3 (target INR of 2.5). This recommendation includes high-risk patients with antiphospholipid syndrome with previous arterial or venous thromboembolism, current-generation mechanical or bioprosthetic aortic heart valve replacement.Note: Patients with mechanical aortic valve replacement and additional risk factors for thromboembolic events (atrial fibrillation, previous thromboembolism, LV dysfunction, hypercoagulable conditions) or an older generation mechanical AVR (i.e., ball in-Cage) or any mechanical MVR should have a INR therapeutic range of 2.5 to 3.5 (target INR of 3).Nan KAPADIA, et al. Chest 2012, 141:7S-47SNishellis RA, et al. [facility] 2017, 70: 252-289 Performed By: #### 3 4528-0, 87837-9 ####[facility]ORATORYCLIA [id number] [place] [address] PT Coag (PPP) [Time] 14.8 s High 9.7-13.0 [facility] Comment on above: Order Comment: Speci men Type: BLOOD SPECIMEN Performed By: #### 3 4528-0, 62899-7 ####[facility]ORATORYCLIA [id number] [place] [address] THERAPY NTon 10-02-2020 THERAPY NT Normal [facility] aPTT PPPon 10-02-2020 aPTT Coag (PPP) [Time] 74.9 s High 23.0-32.4 [facility] Comment on above: Order Comment: Speci men Type: BLOOD SPECIMEN Performed By: #### 1 4979-9 ####[facility]ORATORYCLIA [id number] [place] [address] aPTT Coag (PPP) [Time] 76.2 s High 23.0-32.4 [facility] Comment on above: Order Comment: Speci men Type: BLOOD SPECIMEN Performed By: #### 1 4979-9 ####[facility]ATORYCLIA [id number] [place] [address] aPTT Coag (PPP) [Time] 88.8 s High 23.0-32.4 [facility] Comment on above: Order Comment: Speci men Type: BLOOD SPECIMEN Performed By: #### 3 4528-0, 82752-6 ####[facility]ATORYCLIA [id number] [place] [address] ALLIED HEALTHon 10-01-2020 ALLIED HEALTH Normal [facility] Basic metabolic 2000 panelon 10-01-2020 Anion gap [Moles/Vol] 7 mmol/L Low 9-18 [facility] Comment on above: Order Comment: Speci men Type: BLOOD SPECIMEN Performed By: #### 2 4321-2 ####[facility]ATORYCLIA [id number] [place] [address] Calcium [Mass/Vol] 9.0 mg/dL Normal 8.5-10.2 [facility] Comment on above: Order Comment: Speci men Type: BLOOD SPECIMEN Performed By: #### 2 4321-2 ####[facility]ORYCLIA [id number] [place] [address] Chloride [Moles/Vol] 102 mmol/L Normal 97-105 [facility] Comment on above: Order Comment: Speci men Type: BLOOD SPECIMEN Performed By: #### 2 4321-2 ####[facility]ORYCLIA [id number] [place] [address] CO2 [Moles/Vol] 29 mmol/L Normal 22-30 [facility] Comment on above: Order Comment: Speci men Type: BLOOD SPECIMEN Performed By: #### 2 4321-2 ####[facility]ORYCLIA [id number] [place] [address] Creatinine [Mass/Vol] 0.75 mg/dL Normal 0.73-1.22 [facility] Comment on above: Order Comment: Speci men Type: BLOOD SPECIMEN Performed By: #### 2 4321-2 ####[facility]ORYCLIA [id number] [place] [address] GFR/1.73 sq M.predicted MDRD (S/P/Bld) [Vol rate/Area] mL/min/{1.73_m2} Normal [facility] Comment on above: Order Comment: Speci men Type: BLOOD SPECIMEN Result Comment: >60e GFR (Estimated GFR) Units of measure: mL/min/1.73 meters squaredeGFR is derived from the reexpressed MDRD Study equation using the following parameters: serum creatinine, age, gender and race. The creatinine assay has been calibrated to be traceable to IDMS. An eGFR <60 mL/min/1.73m2 for >3 months is consistent with chronic kidney disease. Refer to KDOQI guidelines for clinical interpretation. In patients with unstable renal function, e.g. those with acute kidney injury, the eGFR may not accurately reflect actual GFR. Performed By: #### 2 4321-2 ####[facility]ITALIA [id number] [place] [address] Glucose [Mass/Vol] 185 mg/dL High 74-99 [facility] Comment on above: Order Comment: Speci men Type: BLOOD SPECIMEN Result Comment: The [place] Diabetes Association (ADA) provides guidance for cutoff values for fasting glucose and random glucose. The ADA defines fasting as no caloric intake for at least 8 hours. Fasting plasma glucose results between 100 to 125 mg/dL indicate increased risk for diabetes (prediabetes).Fasting plasma glucose results greater than or equal to 126 mg/dL meet the criteria for diagnosis of diabetes. In the absence of unequivocal hyperglycemia, results should be confirmed by repeat testing. In a patient with classic symptoms of hyperglycemia or hyperglycemic crisis, random plasma glucose results greater than or equal to 200 mg/dL meet the criteria for diagnosis of diabetes.Reference: Standards of Medical Care in Diabetes 2016, [place] [employer]. Diabetes Care. 2016.39(Suppl 1). Performed By: #### 2 4321-2 ####[facility]ORATORYCLIA [id number] [place] [address] Potassium [Moles/Vol] 4.5 mmol/L Normal 3.7-5.1 [facility] Comment on above: Order Comment: Speci men Type: BLOOD SPECIMEN Performed By: #### 2 4321-2 ####[facility]ORATORYCLIA [id number] [place] [address] Sodium [Moles/Vol] 138 mmol/L Normal 136-144 [facility] Comment on above: Order Comment: Speci men Type: BLOOD SPECIMEN Performed By: #### 2 4321-2 ####[facility]ORATORYCLIA [id number] [place] [address] Urea nitrogen [Mass/Vol] 33 mg/dL High 9-24 [facility] Comment on above: Order Comment: Speci men Type: BLOOD SPECIMEN Performed By: #### 2 4321-2 ####[facility]ORATORYCLIA [id number] [place] [address] CASE MANAGEMon 10-01-2020 CASE MANAGEM Normal [facility] CBC panel Auto (Bld)on 10-01 Erythrocyte distribution width (RBC) [Ratio] 19.5 % High 11.5-15.0 [facility] Comment on above: Order Comment: Speci men Type: BLOOD SPECIMEN Performed By: #### 5 8410-2 ####[facility]ATORYCLIA [id number] [place] [address] Hematocrit (Bld) [Volume fraction] 25.6 % Low 39.0-51.0 [facility] Comment on above: Order Comment: Speci men Type: BLOOD SPECIMEN Performed By: #### 5 8410-2 ####[facility]ATORYCLIA [id number] [place] [address] Hemoglobin (Bld) [Mass/Vol] 7.8 g/dL Low 13.0-17.0 [facility] Comment on above: Order Comment: Speci men Type: BLOOD SPECIMEN Performed By: #### 5 8410-2 ####[facility]ATORYCLIA [id number] [place] [address] MCH (RBC) [Entitic mass] 24.6 pg Low 26.0-34.0 [facility] Comment on above: Order Comment: Speci men Type: BLOOD SPECIMEN Performed By: #### 5 8410-2 ####[facility]ATORYCLIA [id number] [place] [address] MCHC (RBC) [Mass/Vol] 30.5 g/dL Normal 30.5-36.0 [facility] Comment on above: Order Comment: Speci men Type: BLOOD SPECIMEN Performed By: #### 5 8410-2 ####[facility]ATORYCLIA [id number] [place] [address] MCV (RBC) [Entitic vol] 80.8 fL Normal 80.0-100.0 [facility] Comment on above: Order Comment: Speci men Type: BLOOD SPECIMEN Performed By: #### 5 8410-2 ####[facility]ATORYCLIA [id number] [place] [address] Nucleated RBC (Bld) [#/Vol] 10*3/uL Normal <0.01 [facility] Comment on above: Order Comment: Speci men Type: BLOOD SPECIMEN Performed By: #### 5 8410-2 ####[facility]ATORYCLIA [id number] [place] [address] Platelet mean volume (Bld) [Entitic vol] 9.8 fL Normal 9.0-12.7 [facility] Comment on above: Order Comment: Speci men Type: BLOOD SPECIMEN Performed By: #### 5 8410-2 ####[facility]ATORYCLIA [id number] [place] [address] Platelets (Bld) [#/Vol] 286 10*3/uL Normal 150-400 [facility] Comment on above: Order Comment: Speci men Type: BLOOD SPECIMEN Performed By: #### 5 8410-2 ####[facility]ATORYCLIA [id number] [place] [address] RBC (Bld) [#/Vol] 3.17 10*6/uL Low 4.20-6.00 [facility] Comment on above: Order Comment: Speci men Type: BLOOD SPECIMEN Performed By: #### 5 8410-2 ####[facility]ATORYCLIA [id number] [place] [address] WBC (Bld) [#/Vol] 5.74 10*3/uL Normal 3.70-11.00 [facility] Comment on above: Order Comment: Speci men Type: BLOOD SPECIMEN Performed By: #### 5 8410-2 ####[facility]ORATORYCLIA [id number] [place] [address] CONSULT PROGon 10-01-2020 CONSULT PROG Normal [facility] CONSULT PROG Normal [facility] CONSULT PROG Normal [facility] NUTRITIONon 10-01-2020 NUTRITION Normal [facility] PT panel Coag (PPP)on 2020 INR Coag (PPP) [Relative time] 1.1 {INR} Normal 0.9-1.3 [facility] Comment on above: Order Comment: Speci men Type: BLOOD SPECIMEN Result Comment: Aislinn min K Antagonist (VKA) Therapeutic Range: INR 2 to 3 (Target INR of 2.5)Note: For patients treated with VKA drugs, such as warfarin, the [place] [employer] 2012 Guideline recommends a therapeutic INR range of 2 to 3 (target INR of 2.5). This recommendation includes high-risk patients with antiphospholipid syndrome with previous arterial or venous thromboembolism, current-generation mechanical or bioprosthetic aortic heart valve replacement.Note: Patients with mechanical aortic valve replacement and additional risk factors for thromboembolic events (atrial fibrillation, previous thromboembolism, LV dysfunction, hypercoagulable conditions) or an older generation mechanical AVR (i.e., ball in-Cage) or any mechanical MVR should have a INR therapeutic range of 2.5 to 3.5 (target INR of 3).Nan GH, et al. Chest 2012, 141:7S-47SNishellis RA, et al. JACC 2017, 70: 252-289 Performed By: #### 1 4979-9, 51021-5 ####[facility]ORATORYCLIA [id number] [place] [address] PT Coag (PPP) [Time] 11.6 s Normal 9.7-13.0 [facility] Comment on above: Order Comment: Speci men Type: BLOOD SPECIMEN Performed By: #### 1 4979-9, 20845-6 ####[facility]ORATORYCLIA [id number] [place] [address] XR CHEST 1V FRONTALon 2020 XR CHEST 1V FRONTAL Final Report DATE OF EXAM: Oct 01 2020 6:54AM AKX [id number] - XR CHEST 1V FRONTAL / PROCEDURE REASON: Post-operative / post-procedure assessment, asymptomatic Physician Interpretation EXAMINATION: CHEST RADIOGRAPH (SINGLE VIEW AP OR PA) CLINICAL HISTORY: Post-operative / post-procedure assessment, asymptomatic MQ: XC1_5 Comparison: 09/24/2020 RESULT: Lines, tubes, and devices: Right subclavian venous catheter terminates at the cavoatrial junction. Lungs and pleura: No consolidation. No lung mass. No pleural effusion. No pneumothorax. Cardiomediastinal silhouette: Stable cardiomediastinal silhouette. IMPRESSION: No acute radiographic abnormality. Right subclavian venous catheter terminates at the cavoatrial junction. [employer] Machine Operator: [facility] Transcribe Date/Time: Oct 01 2020 7:34A Dictated by : DONA RODRIGUEZ MD This examination was interpreted and the report reviewed and electronically signed by: DONA RODRIGUEZ MD on Oct 01 2020 7:36AM EST Normal [facility] aPTT PPPon 10-01-2020 aPTT Coag (PPP) [Time] 76.3 s High 23.0-32.4 [facility] Comment on above: Order Comment: Speci men Type: BLOOD SPECIMEN Performed By: #### 1 4979-9, 83958-5 ####[facility]ORATORYCLIA [id number] [place] [address] CASE MANAGEMon 09-30-2020 CASE MANAGEM Normal [facility] CASE MANAGEM Normal [facility] CONSULT PROGon 09-30-2020 CONSULT PROG Normal [facility] CONSULT PROG Normal [facility] PT panel Coag (PPP)on 2020 INR Coag (PPP) [Relative time] 1.1 {INR} Normal 0.9-1.3 [facility] Comment on above: Order Comment: Speci men Type: BLOOD SPECIMEN Result Comment: Aislinn min K Antagonist (VKA) Therapeutic Range: INR 2 to 3 (Target INR of 2.5)Note: For patients treated with VKA drugs, such as warfarin, the [place] [employer] 2012 Guideline recommends a therapeutic INR range of 2 to 3 (target INR of 2.5). This recommendation includes high-risk patients with antiphospholipid syndrome with previous arterial or venous thromboembolism, current-generation mechanical or bioprosthetic aortic heart valve replacement.Note: Patients with mechanical aortic valve replacement and additional risk factors for thromboembolic events (atrial fibrillation, previous thromboembolism, LV dysfunction, hypercoagulable conditions) or an older generation mechanical AVR (i.e., ball in-Cage) or any mechanical MVR should have a INR therapeutic range of 2.5 to 3.5 (target INR of 3).Nan KAPADIA, et al. Chest 2012, 141:7S-47SJessica RA, et al. [facility] 2017, 70: 252-289 Performed By: #### 3 4528-0 ####[facility]ORATORYCLIA [id number] [place] [address] PT Coag (PPP) [Time] 11.5 s Normal 9.7-13.0 [facility] Comment on above: Order Comment: Speci men Type: BLOOD SPECIMEN Performed By: #### 3 4528-0 ####[facility]ORATORYCLIA [id number] [place] [address] Phosphate SerPl-mCncon 09-30 Phosphate [Mass/Vol] 3.5 mg/dL Normal 2.7-4.8 [facility] Comment on above: Order Comment: Speci men Type: BLOOD SPECIMEN Performed By: #### 2 777-1 ####[facility]ATORYCLIA [id number] [place] [address] THERAPY NTon 09-30-2020 THERAPY NT Normal [facility] aPTT PPPon 09-30-2020 aPTT Coag (PPP) [Time] 77.4 s High 23.0-32.4 [facility] Comment on above: Order Comment: Speci men Type: BLOOD SPECIMEN Performed By: #### 1 4979-9 ####[facility]ATORYCLIA [id number] [place] [address] aPTT Coag (PPP) [Time] 45.1 s High 23.0-32.4 [facility] Comment on above: Order Comment: Speci men Type: BLOOD SPECIMEN Performed By: #### 1 4979-9 ####[facility]ORATORYCLIA [id number] [place] [address] CASE MANAGEMon 09-29-2020 CASE MANAGEM Normal [facility] CNPNon 09-29-2020 CNPN Normal [facility] CONSULT PROGon 09-29-2020 CONSULT PROG Normal [facility] CONSULT PROG Normal [facility] CONSULT PROG Normal [facility] CONSULT PROG Normal [facility] PT panel Coag (PPP)on 2020 INR Coag (PPP) [Relative time] 1.1 {INR} Normal 0.9-1.3 [facility] Comment on above: Order Comment: Speci men Type: BLOOD SPECIMEN Result Comment: Aislinn min K Antagonist (VKA) Therapeutic Range: INR 2 to 3 (Target INR of 2.5)Note: For patients treated with VKA drugs, such as warfarin, the [place] [employer] 2012 Guideline recommends a therapeutic INR range of 2 to 3 (target INR of 2.5). This recommendation includes high-risk patients with antiphospholipid syndrome with previous arterial or venous thromboembolism, current-generation mechanical or bioprosthetic aortic heart valve replacement.Note: Patients with mechanical aortic valve replacement and additional risk factors for thromboembolic events (atrial fibrillation, previous thromboembolism, LV dysfunction, hypercoagulable conditions) or an older generation mechanical AVR (i.e., ball in-Cage) or any mechanical MVR should have a INR therapeutic range of 2.5 to 3.5 (target INR of 3).Nan GH, et al. Chest 2012, 141:7S-47SNishellis RA, et al. [facility] 2017, 70: 252-289 Performed By: #### 3 4528-0, 48062-1 ####[facility]ORATORYCLIA [id number] [place] [address] PT Coag (PPP) [Time] 11.4 s Normal 9.7-13.0 [facility] Comment on above: Order Comment: Speci men Type: BLOOD SPECIMEN Performed By: #### 3 4528-0, 24329-9 ####[facility]ORATORYCLIA [id number] [place] [address] THERAPY NTon 09-29-2020 THERAPY NT Normal [facility] aPTT PPPon 09-29-2020 aPTT Coag (PPP) [Time] 64.0 s High 23.0-32.4 [facility] Comment on above: Order Comment: Speci men Type: BLOOD SPECIMEN Performed By: #### 3 4528-0, 23382-4 ####[facility]ORATORYCLIA [id number] [place] [address] 2019 CORONAVIRUSon SARS-CoV-2 (COVID-19) RNA SCAR+probe Ql (Unsp spec) Normal [facility] Comment on above: Performed By: #### C OVID ####[facility] LABCLIA [id number] [place] [address] ALLIED HEALTHon 09-28-2020 ALLIED HEALTH Normal [facility] Basic metabolic 2000 panelon 09-28-2020 Anion gap [Moles/Vol] 9 mmol/L Normal 9-18 [facility] Comment on above: Order Comment: Speci men Type: BLOOD SPECIMEN Performed By: #### 2 4321-2, 87456-9 ####[facility]ORATORYCLIA [id number] [place] [address] Calcium [Mass/Vol] 8.9 mg/dL Normal 8.5-10.2 [facility] Comment on above: Order Comment: Speci men Type: BLOOD SPECIMEN Performed By: #### 2 4321-2, 85506-8 ####[facility]ORATORYCLIA [id number] [place] [address] Chloride [Moles/Vol] 107 mmol/L High 97-105 [facility] Comment on above: Order Comment: Speci men Type: BLOOD SPECIMEN Performed By: #### 2 4320-2, ####[facility]ORATORYCLIA [id number] [place] [address] CO2 [Moles/Vol] 25 mmol/L Normal 22-30 [facility] Comment on above: Order Comment: Speci men Type: BLOOD SPECIMEN Performed By: #### 2 2, ####[facility]ORATORYCLIA [id number] [place] [address] Creatinine [Mass/Vol] 0.89 mg/dL Normal 0.73-1.22 [facility] Comment on above: Order Comment: Speci men Type: BLOOD SPECIMEN Performed By: #### 2 2, ####[facility]ORATORYCLIA [id number] [place] [address] GFR/1.73 sq M.predicted MDRD (S/P/Bld) [Vol rate/Area] mL/min/{1.73_m2} Normal [facility] Comment on above: Order Comment: Speci men Type: BLOOD SPECIMEN Result Comment: >60e GFR (Estimated GFR) Units of measure: mL/min/1.73 meters squaredeGFR is derived from the reexpressed MDRD Study equation using the following parameters: serum creatinine, age, gender and race. The creatinine assay has been calibrated to be traceable to IDMS. An eGFR <60 mL/min/1.73m2 for >3 months is consistent with chronic kidney disease. Refer to KDOQI guidelines for clinical interpretation. In patients with unstable renal function, e.g. those with acute kidney injury, the eGFR may not accurately reflect actual GFR. Performed By: #### 2 4320-2, ####[facility]ORATORYCLIA [id number] [place] [address] Glucose [Mass/Vol] 89 mg/dL Normal 74-99 [facility] Comment on above: Order Comment: Speci men Type: BLOOD SPECIMEN Result Comment: The [place] Diabetes Association (ADA) provides guidance for cutoff values for fasting glucose and random glucose. The ADA defines fasting as no caloric intake for at least 8 hours. Fasting plasma glucose results between 100 to 125 mg/dL indicate increased risk for diabetes (prediabetes).Fasting plasma glucose results greater than or equal to 126 mg/dL meet the criteria for diagnosis of diabetes. In the absence of unequivocal hyperglycemia, results should be confirmed by repeat testing. In a patient with classic symptoms of hyperglycemia or hyperglycemic crisis, random plasma glucose results greater than or equal to 200 mg/dL meet the criteria for diagnosis of diabetes.Reference: Standards of Medical Care in Diabetes 2016, [place] [employer]. Diabetes Care. 2016.39(Suppl 1). Performed By: #### 2 1-2, ####[facility]ORATORYCLIA [id number] [place] [address] Potassium [Moles/Vol] 4.0 mmol/L Normal 3.7-5.1 [facility] Comment on above: Order Comment: Speci men Type: BLOOD SPECIMEN Performed By: #### 2 4320-08, ####[facility]ORATORYCLIA [id number] [place] [address] Sodium [Moles/Vol] 141 mmol/L Normal 136-144 [facility] Comment on above: Order Comment: Speci men Type: BLOOD SPECIMEN Performed By: #### 2 4320-2, ####[facility]ORATORYCLIA [id number] [place] [address] Urea nitrogen [Mass/Vol] 16 mg/dL Normal 9-24 [facility] Comment on above: Order Comment: Speci men Type: BLOOD SPECIMEN Performed By: #### 2 2, ####[facility]ORATORYCLIA [id number] [place] [address] CBC panel Auto (Bld)on 09-28 Erythrocyte distribution width (RBC) [Ratio] 19.4 % High 11.5-15.0 [facility] Comment on above: Order Comment: Speci men Type: BLOOD SPECIMEN Performed By: #### 5 8410-2 ####[facility]ORATORYCLIA [id number] [place] [address] Hematocrit (Bld) [Volume fraction] 27.9 % Low 39.0-51.0 [facility] Comment on above: Order Comment: Speci men Type: BLOOD SPECIMEN Performed By: #### 5 8410-2 ####[facility]ATORYCLIA [id number] [place] [address] Hemoglobin (Bld) [Mass/Vol] 8.4 g/dL Low 13.0-17.0 [facility] Comment on above: Order Comment: Speci men Type: BLOOD SPECIMEN Performed By: #### 5 8410-2 ####[facility]ORATORYCLIA [id number] [place] [address] MCH (RBC) [Entitic mass] 24.6 pg Low 26.0-34.0 [facility] Comment on above: Order Comment: Speci men Type: BLOOD SPECIMEN Performed By: #### 5 8410-2 ####[facility]ATORYCLIA [id number] [place] [address] MCHC (RBC) [Mass/Vol] 30.1 g/dL Low 30.5-36.0 [facility] Comment on above: Order Comment: Speci men Type: BLOOD SPECIMEN Performed By: #### 5 8410-2 ####[facility]ATORYCLIA [id number] [place] [address] MCV (RBC) [Entitic vol] 81.8 fL Normal 80.0-100.0 [facility] Comment on above: Order Comment: Speci men Type: BLOOD SPECIMEN Performed By: #### 5 8410-2 ####[facility]ORATORYCLIA [id number] [place] [address] Nucleated RBC (Bld) [#/Vol] 10*3/uL Normal <0.01 [facility] Comment on above: Order Comment: Speci men Type: BLOOD SPECIMEN Performed By: #### 5 8410-2 ####[facility]ATORYCLIA [id number] [place] [address] Platelet mean volume (Bld) [Entitic vol] 9.8 fL Normal 9.0-12.7 [facility] Comment on above: Order Comment: Speci men Type: BLOOD SPECIMEN Performed By: #### 5 8410-2 ####[facility]ORATORYCLIA [id number] [place] [address] Platelets (Bld) [#/Vol] 265 10*3/uL Normal 150-400 [facility] Comment on above: Order Comment: Speci men Type: BLOOD SPECIMEN Performed By: #### 5 8410-2 ####[facility]ATORYCLIA [id number] [place] [address] RBC (Bld) [#/Vol] 3.41 10*6/uL Low 4.20-6.00 [facility] Comment on above: Order Comment: Speci men Type: BLOOD SPECIMEN Performed By: #### 5 8410-2 ####[facility]ATORYCLIA [id number] [place] [address] WBC (Bld) [#/Vol] 5.67 10*3/uL Normal 3.70-11.00 [facility] Comment on above: Order Comment: Speci men Type: BLOOD SPECIMEN Performed By: #### 5 8410-2 ####[facility]ORATORYCLIA [id number] [place] [address] CONSULT PROGon 09-28-2020 CONSULT PROG [facility] Magnesium SerPl-mCncon 09-28 Magnesium [Mass/Vol] 2.0 mg/dL Normal 1.7-2.3 [facility] Comment on above: Order Comment: Speci men Type: BLOOD SPECIMEN Performed By: #### 2 4321-2, 44277-9 ####[facility]ORATORYCLIA [id number] [place] [address] NURSING PROGon 09-28-2020 NURSING PROG Normal [facility] PT panel Coag (PPP)on 2020 INR Coag (PPP) [Relative time] 1.1 {INR} Normal 0.9-1.3 [facility] Comment on above: Order Comment: Speci men Type: BLOOD SPECIMEN Result Comment: Aislinn min K Antagonist (VKA) Therapeutic Range: INR 2 to 3 (Target INR of 2.5)Note: For patients treated with VKA drugs, such as warfarin, the [place] [employer] 2012 Guideline recommends a therapeutic INR range of 2 to 3 (target INR of 2.5). This recommendation includes high-risk patients with antiphospholipid syndrome with previous arterial or venous thromboembolism, current-generation mechanical or bioprosthetic aortic heart valve replacement.Note: Patients with mechanical aortic valve replacement and additional risk factors for thromboembolic events (atrial fibrillation, previous thromboembolism, LV dysfunction, hypercoagulable conditions) or an older generation mechanical AVR (i.e., ball in-Cage) or any mechanical MVR should have a INR therapeutic range of 2.5 to 3.5 (target INR of 3).Nan GH, et al. Chest 2012, 141:7S-47SNishimura RA, et al. [facility] 2017, 70: 252-289 Performed By: #### 3 4528-0, 48236-1 ####[facility]ORATORYCLIA [id number] [place] [address] PT Coag (PPP) [Time] 11.4 s Normal 9.7-13.0 [facility] Comment on above: Order Comment: Speci men Type: BLOOD SPECIMEN Performed By: #### 3 4528-0, 82817-1 ####[facility]ORATORYCLIA [id number] [place] [address] XR CHEST 2V FRONTAL/LATon XR CHEST 2V FRONTAL/LAT Final Report DATE OF EXAM: Sep 28 2020 3:23PM AKX [id number] - XR CHEST 2V FRONTAL/LAT / PROCEDURE REASON: Cough, new onset Physician Interpretation EXAMINATION: CHEST RADIOGRAPH (2 VIEW FRONTAL & LATERAL) CLINICAL HISTORY: Cough, new onset MQ: [id number]_6 EXAM DATE/TIME: 09/28/2020 3:23 PM COMPARISON: 06/23/2020 RESULT: Lines, tubes, and devices: A right PICC line ending in the distal SVC has been placed since the prior examination. Lungs and pleura: There are vague but new increased lung markings in the right lung base which may represent early changes of pneumonia. A follow-up exam with chest PA and lateral views recommended when the patient's condition will permit. No consolidation. No lung mass. No pleural effusion. No pneumothorax. Cardiomediastinal silhouette: Normal cardiomediastinal silhouette. The patient is status post median sternotomy with an aortic valve prosthesis. Bones and soft tissues: There are degenerative changes involving the thoracic spine. IMPRESSION: New and nonspecific minimal parenchymal changes in the right lung base as described above. A follow-up exam is recommended. [employer] Machine Operator: PSCB Transcribe Date/Time: Sep 28 2020 8:26P Dictated by : LIA MARTINS MD This examination was interpreted and the report reviewed and electronically signed by: LIA MARTINS MD on Sep 28 2020 8:28PM EST Normal [facility] aPTT PPPon 09-28-2020 aPTT Coag (PPP) [Time] 60.6 s High 23.0-32.4 [facility] Comment on above: Order Comment: Speci men Type: BLOOD SPECIMEN Performed By: #### 1 4979-9 ####[facility]ATORYCLIA [id number] [place] [address] aPTT Coag (PPP) [Time] 65.4 s High 23.0-32.4 [facility] Comment on above: Order Comment: Speci men Type: BLOOD SPECIMEN Performed By: #### 1 4979-9 ####[facility]ORATORYCLIA [id number] [place] [address] aPTT Coag (PPP) [Time] 81.5 s High 23.0-32.4 [facility] Comment on above: Order Comment: Speci men Type: BLOOD SPECIMEN Performed By: #### 3 4528-0, 78633-0 ####[facility]ORATORYCLIA [id number] [place] [address] Basic metabolic 2000 panelon 09-27-2020 Anion gap [Moles/Vol] 6 mmol/L Low 9-18 [facility] Comment on above: Order Comment: Speci men Type: BLOOD SPECIMEN Performed By: #### 2 4321-2 ####[facility]ORATORYCLIA [id number] [place] [address] Calcium [Mass/Vol] 8.6 mg/dL Normal 8.5-10.2 [facility] Comment on above: Order Comment: Speci men Type: BLOOD SPECIMEN Performed By: #### 2 4321-2 ####[facility]ATORYCLIA [id number] [place] [address] Chloride [Moles/Vol] 109 mmol/L High 97-105 [facility] Comment on above: Order Comment: Speci men Type: BLOOD SPECIMEN Performed By: #### 2 4321-2 ####[facility]ATORYCLIA [id number] [place] [address] CO2 [Moles/Vol] 25 mmol/L Normal 22-30 [facility] Comment on above: Order Comment: Speci men Type: BLOOD SPECIMEN Performed By: #### 2 4321-2 ####[facility]ATORYCLIA [id number] [place] [address] Creatinine [Mass/Vol] 0.75 mg/dL Normal 0.73-1.22 [facility] Comment on above: Order Comment: Speci men Type: BLOOD SPECIMEN Performed By: #### 2 4321-2 ####[facility]ATORYCLIA [id number] [place] [address] GFR/1.73 sq M.predicted MDRD (S/P/Bld) [Vol rate/Area] mL/min/{1.73_m2} Normal [facility] Comment on above: Order Comment: Speci men Type: BLOOD SPECIMEN Result Comment: >60e GFR (Estimated GFR) Units of measure: mL/min/1.73 meters squaredeGFR is derived from the reexpressed MDRD Study equation using the following parameters: serum creatinine, age, gender and race. The creatinine assay has been calibrated to be traceable to IDMS. An eGFR <60 mL/min/1.73m2 for >3 months is consistent with chronic kidney disease. Refer to KDOQI guidelines for clinical interpretation. In patients with unstable renal function, e.g. those with acute kidney injury, the eGFR may not accurately reflect actual GFR. Performed By: #### 2 4321-2 ####[facility]ORATORYCLIA [id number] [place] [address] Glucose [Mass/Vol] 153 mg/dL High 74-99 [facility] Comment on above: Order Comment: Speci men Type: BLOOD SPECIMEN Result Comment: The [place] Diabetes [employer] (ADA) provides guidance for cutoff values for fasting glucose and random glucose. The ADA defines fasting as no caloric intake for at least 8 hours. Fasting plasma glucose results between 100 to 125 mg/dL indicate increased risk for diabetes (prediabetes).Fasting plasma glucose results greater than or equal to 126 mg/dL meet the criteria for diagnosis of diabetes. In the absence of unequivocal hyperglycemia, results should be confirmed by repeat testing. In a patient with classic symptoms of hyperglycemia or hyperglycemic crisis, random plasma glucose results greater than or equal to 200 mg/dL meet the criteria for diagnosis of diabetes.Reference: Standards of Medical Care in Diabetes 2016, [place] [employer]. Diabetes Care. 2016.39(Suppl 1). Performed By: #### 2 4321-2 ####[facility]ORATORYCLIA [id number] [place] [address] Potassium [Moles/Vol] 3.9 mmol/L Normal 3.7-5.1 [facility] Comment on above: Order Comment: Speci men Type: BLOOD SPECIMEN Performed By: #### 2 4321-2 ####[facility]ORATORYCLIA [id number] [place] [address] Sodium [Moles/Vol] 140 mmol/L Normal 136-144 [facility] Comment on above: Order Comment: Speci men Type: BLOOD SPECIMEN Performed By: #### 2 4321-2 ####[facility]ORATORYCLIA [id number] [place] [address] Urea nitrogen [Mass/Vol] 8 mg/dL Low 9-24 [facility] Comment on above: Order Comment: Speci men Type: BLOOD SPECIMEN Performed By: #### 2 4321-2 ####[facility]ORATORYCLIA [id number] [place] [address] CBC panel Auto (Bld)on 09-27 Erythrocyte distribution width (RBC) [Ratio] 19.4 % High 11.5-15.0 [facility] Comment on above: Order Comment: Speci men Type: BLOOD SPECIMEN Performed By: #### 5 8410-2 ####[facility]ORATORYCLIA [id number] [place] [address] Hematocrit (Bld) [Volume fraction] 27.4 % Low 39.0-51.0 [facility] Comment on above: Order Comment: Speci men Type: BLOOD SPECIMEN Performed By: #### 5 8410-2 ####[facility]ATORYCLIA [id number] [place] [address] Hemoglobin (Bld) [Mass/Vol] 8.4 g/dL Low 13.0-17.0 [facility] Comment on above: Order Comment: Speci men Type: BLOOD SPECIMEN Performed By: #### 5 8410-2 ####[facility]ORATORYCLIA [id number] [place] [address] MCH (RBC) [Entitic mass] 24.6 pg Low 26.0-34.0 [facility] Comment on above: Order Comment: Speci men Type: BLOOD SPECIMEN Performed By: #### 5 8410-2 ####[facility]ORATORYCLIA [id number] [place] [address] MCHC (RBC) [Mass/Vol] 30.7 g/dL Normal 30.5-36.0 [facility] Comment on above: Order Comment: Speci men Type: BLOOD SPECIMEN Performed By: #### 5 8410-2 ####[facility]ORATORYCLIA [id number] [place] [address] MCV (RBC) [Entitic vol] 80.1 fL Normal 80.0-100.0 [facility] Comment on above: Order Comment: Speci men Type: BLOOD SPECIMEN Performed By: #### 5 8410-2 ####[facility]ORATORYCLIA [id number] [place] [address] Nucleated RBC (Bld) [#/Vol] 10*3/uL Normal <0.01 [facility] Comment on above: Order Comment: Speci men Type: BLOOD SPECIMEN Performed By: #### 5 8410-2 ####[facility]ORATORYCLIA [id number] [place] [address] Platelet mean volume (Bld) [Entitic vol] 9.3 fL Normal 9.0-12.7 [facility] Comment on above: Order Comment: Speci men Type: BLOOD SPECIMEN Performed By: #### 5 8410-2 ####[facility]ORATORYCLIA [id number] [place] [address] Platelets (Bld) [#/Vol] 285 10*3/uL Normal 150-400 [facility] Comment on above: Order Comment: Speci men Type: BLOOD SPECIMEN Performed By: #### 5 8410-2 ####[facility]ATORYCLIA [id number] [place] [address] RBC (Bld) [#/Vol] 3.42 10*6/uL Low 4.20-6.00 [facility] Comment on above: Order Comment: Speci men Type: BLOOD SPECIMEN Performed By: #### 5 8410-2 ####[facility]ATORYCLIA [id number] [place] [address] WBC (Bld) [#/Vol] 6.12 10*3/uL Normal 3.70-11.00 [facility] Comment on above: Order Comment: Speci men Type: BLOOD SPECIMEN Performed By: #### 5 8410-2 ####[facility]ORATORYCLIA [id number] [place] [address] CONSULT PROGon 09-27-2020 CONSULT PROG Normal [facility] CONSULT PROG Normal [facility] CONSULT PROG Normal [facility] NUTRITIONon 09-27-2020 NUTRITION Normal [facility] PT panel Coag (PPP)on 2020 INR Coag (PPP) [Relative time] 1.1 {INR} Normal 0.9-1.3 [facility] Comment on above: Order Comment: Speci men Type: BLOOD SPECIMEN Result Comment: Aislinn min K Antagonist (VKA) Therapeutic Range: INR 2 to 3 (Target INR of 2.5)Note: For patients treated with VKA drugs, such as warfarin, the [place] [employer] 2012 Guideline recommends a therapeutic INR range of 2 to 3 (target INR of 2.5). This recommendation includes high-risk patients with antiphospholipid syndrome with previous arterial or venous thromboembolism, current-generation mechanical or bioprosthetic aortic heart valve replacement.Note: Patients with mechanical aortic valve replacement and additional risk factors for thromboembolic events (atrial fibrillation, previous thromboembolism, LV dysfunction, hypercoagulable conditions) or an older generation mechanical AVR (i.e., ball in-Cage) or any mechanical MVR should have a INR therapeutic range of 2.5 to 3.5 (target INR of 3).Nan GH, et al. Chest 2012, 141:7S-47SNishimura RA, et al. [facility] 2017, 70: 252-289 Performed By: #### 3 4528-0, 70375-0 ####[facility]ORATORYCLIA [id number] [place] [address] PT Coag (PPP) [Time] 11.5 s Normal 9.7-13.0 [facility] Comment on above: Order Comment: Speci men Type: BLOOD SPECIMEN Performed By: #### 3 4528-0, 44269-0 ####[facility]ORATORYCLIA [id number] [place] [address] Vancomycin random [Mass/Vol] on 09-27-2020 Vancomycin [Mass/Vol] 27.2 ug/mL High 10.0-20.0 [facility] Comment on above: Order Comment: Speci men Type: BLOOD SPECIMEN Result Comment: Refe rence ranges and high/low indicator flags are provided as general guidelines only. The treating physician must determine appropriate target levels/dosing based on the specific clinical situation. Performed By: #### 4 091-5 ####[facility]ORATORYCLIA [id number] [place] [address] aPTT PPPon 09-27-2020 aPTT Coag (PPP) [Time] 47.6 s High 23.0-32.4 [facility] Comment on above: Order Comment: Speci men Type: BLOOD SPECIMEN Performed By: #### 1 4979-9 ####[facility]ORATORYCLIA [id number] [place] [address] aPTT Coag (PPP) [Time] 65.9 s High 23.0-32.4 [facility] Comment on above: Order Comment: Speci men Type: BLOOD SPECIMEN Performed By: #### 1 4979-9 ####[facility]ATORYCLIA [id number] [place] [address] aPTT Coag (PPP) [Time] 87.4 s High 23.0-32.4 [facility] Comment on above: Order Comment: Speci men Type: BLOOD SPECIMEN Performed By: #### 3 4528-0, 21392-0 ####[facility]ATORYCLIA [id number] [place] [address] Basic metabolic 2000 panelon 09-26-2020 Anion gap [Moles/Vol] 4 mmol/L Low 9-18 [facility] Comment on above: Order Comment: Speci men Type: BLOOD SPECIMEN Performed By: #### 2 4321-2 ####[facility]ORYCLIA [id number] [place] [address] Calcium [Mass/Vol] 8.6 mg/dL Normal 8.5-10.2 [facility] Comment on above: Order Comment: Speci men Type: BLOOD SPECIMEN Performed By: #### 2 4321-2 ####[facility]ATORYCLIA [id number] [place] [address] Chloride [Moles/Vol] 111 mmol/L High 97-105 [facility] Comment on above: Order Comment: Speci men Type: BLOOD SPECIMEN Performed By: #### 2 4321-2 ####[facility]ATORYCLIA [id number] [place] [address] CO2 [Moles/Vol] 25 mmol/L Normal 22-30 [facility] Comment on above: Order Comment: Speci men Type: BLOOD SPECIMEN Performed By: #### 2 4321-2 ####[facility]ATORYCLIA [id number] [place] [address] Creatinine [Mass/Vol] 0.90 mg/dL Normal 0.73-1.22 [facility] Comment on above: Order Comment: Speci men Type: BLOOD SPECIMEN Performed By: #### 2 4321-2 ####[facility]ORATORYCLIA [id number] [place] [address] GFR/1.73 sq M.predicted MDRD (S/P/Bld) [Vol rate/Area] mL/min/{1.73_m2} Normal [facility] Comment on above: Order Comment: Speci men Type: BLOOD SPECIMEN Result Comment: >60e GFR (Estimated GFR) Units of measure: mL/min/1.73 meters squaredeGFR is derived from the reexpressed MDRD Study equation using the following parameters: serum creatinine, age, gender and race. The creatinine assay has been calibrated to be traceable to IDMS. An eGFR <60 mL/min/1.73m2 for >3 months is consistent with chronic kidney disease. Refer to KDOQI guidelines for clinical interpretation. In patients with unstable renal function, e.g. those with acute kidney injury, the eGFR may not accurately reflect actual GFR. Performed By: #### 2 4321-2 ####[facility] LABORATORYIA [id number] [place] [address] Glucose [Mass/Vol] 112 mg/dL High 74-99 [facility] Comment on above: Order Comment: Speci isabelle Type: BLOOD SPECIMEN Result Comment: The [place] Diabetes [employer] (ADA) provides guidance for cutoff values for fasting glucose and random glucose. The ADA defines fasting as no caloric intake for at least 8 hours. Fasting plasma glucose results between 100 to 125 mg/dL indicate increased risk for diabetes (prediabetes).Fasting plasma glucose results greater than or equal to 126 mg/dL meet the criteria for diagnosis of diabetes. In the absence of unequivocal hyperglycemia, results should be confirmed by repeat testing. In a patient with classic symptoms of hyperglycemia or hyperglycemic crisis, random plasma glucose results greater than or equal to 200 mg/dL meet the criteria for diagnosis of diabetes.Reference: Standards of Medical Care in Diabetes 2016, [place] [employer]. Diabetes Care. 2016.39(Suppl 1). Performed By: #### 2 4321-2 ####[facility] LABORATORYCLIA [id number] [place] [address] Potassium [Moles/Vol] 4.0 mmol/L Normal 3.7-5.1 [facility] Comment on above: Order Comment: Speci men Type: BLOOD SPECIMEN Performed By: #### 2 4321-2 ####[facility]ORATORYCLIA [id number] [place] [address] Sodium [Moles/Vol] 140 mmol/L Normal 136-144 [facility] Comment on above: Order Comment: Speci men Type: BLOOD SPECIMEN Performed By: #### 2 4321-2 ####[facility]ORATORYCLIA [id number] [place] [address] Urea nitrogen [Mass/Vol] 9 mg/dL Normal 9-24 [facility] Comment on above: Order Comment: Speci men Type: BLOOD SPECIMEN Performed By: #### 2 4321-2 ####[facility]ORATORYCLIA [id number] [place] [address] CASE MANAGEMon 09-26-2020 CASE MANAGEM Normal [facility] CBC panel Auto (Bld)on 09-26 Erythrocyte distribution width (RBC) [Ratio] 19.0 % High 11.5-15.0 [facility] Comment on above: Order Comment: Speci men Type: BLOOD SPECIMEN Performed By: #### 5 8410-2 ####[facility]ORATORYCLIA [id number] [place] [address] Hematocrit (Bld) [Volume fraction] 26.8 % Low 39.0-51.0 [facility] Comment on above: Order Comment: Speci men Type: BLOOD SPECIMEN Performed By: #### 5 8410-2 ####[facility]ORATORYCLIA [id number] [place] [address] Hemoglobin (Bld) [Mass/Vol] 8.4 g/dL Low 13.0-17.0 [facility] Comment on above: Order Comment: Speci men Type: BLOOD SPECIMEN Performed By: #### 5 8410-2 ####[facility]ORATORYCLIA [id number] [place] [address] MCH (RBC) [Entitic mass] 24.9 pg Low 26.0-34.0 [facility] Comment on above: Order Comment: Speci men Type: BLOOD SPECIMEN Performed By: #### 5 8410-2 ####[facility]ATORYCLIA [id number] [place] [address] MCHC (RBC) [Mass/Vol] 31.3 g/dL Normal 30.5-36.0 [facility] Comment on above: Order Comment: Speci men Type: BLOOD SPECIMEN Performed By: #### 5 8410-2 ####[facility]ORATORYCLIA [id number] [place] [address] MCV (RBC) [Entitic vol] 79.5 fL Low 80.0-100.0 [facility] Comment on above: Order Comment: Speci men Type: BLOOD SPECIMEN Performed By: #### 5 8410-2 ####[facility]ORATORYCLIA [id number] [place] [address] Nucleated RBC (Bld) [#/Vol] 10*3/uL Normal <0.01 [facility] Comment on above: Order Comment: Speci men Type: BLOOD SPECIMEN Performed By: #### 5 8410-2 ####[facility]ATORYCLIA [id number] [place] [address] Platelet mean volume (Bld) [Entitic vol] 9.8 fL Normal 9.0-12.7 [facility] Comment on above: Order Comment: Speci men Type: BLOOD SPECIMEN Performed By: #### 5 8410-2 ####[facility]ORATORYCLIA [id number] [place] [address] Platelets (Bld) [#/Vol] 280 10*3/uL Normal 150-400 [facility] Comment on above: Order Comment: Speci men Type: BLOOD SPECIMEN Performed By: #### 5 8410-2 ####[facility]ATORYCLIA [id number] [place] [address] RBC (Bld) [#/Vol] 3.37 10*6/uL Low 4.20-6.00 [facility] Comment on above: Order Comment: Speci men Type: BLOOD SPECIMEN Performed By: #### 5 8410-2 ####[facility]ATORYCLIA [id number] [place] [address] WBC (Bld) [#/Vol] 5.54 10*3/uL Normal 3.70-11.00 [facility] Comment on above: Order Comment: Speci men Type: BLOOD SPECIMEN Performed By: #### 5 8410-2 ####[facility]ORATORYCLIA [id number] [place] [address] CONSULT PROGon 09-26-2020 CONSULT PROG Normal [facility] CONSULT PROG Normal [facility] CONSULT PROG Normal [facility] CONSULT PROG Normal [facility] CONSULT PROG Normal [facility] PT EDon 09-26-2020 PT ED Normal [facility] PT panel Coag (PPP)on 2020 INR Coag (PPP) [Relative time] 1.1 {INR} Normal 0.9-1.3 [facility] Comment on above: Order Comment: Speci men Type: BLOOD SPECIMEN Result Comment: Aislinn min K Antagonist (VKA) Therapeutic Range: INR 2 to 3 (Target INR of 2.5)Note: For patients treated with VKA drugs, such as warfarin, the [place] [employer] 2012 Guideline recommends a therapeutic INR range of 2 to 3 (target INR of 2.5). This recommendation includes high-risk patients with antiphospholipid syndrome with previous arterial or venous thromboembolism, current-generation mechanical or bioprosthetic aortic heart valve replacement.Note: Patients with mechanical aortic valve replacement and additional risk factors for thromboembolic events (atrial fibrillation, previous thromboembolism, LV dysfunction, hypercoagulable conditions) or an older generation mechanical AVR (i.e., ball in-Cage) or any mechanical MVR should have a INR therapeutic range of 2.5 to 3.5 (target INR of 3).Nan KAPADIA, et al. Chest 2012, 141:7S-47SJessica RA, et al. JACC 2017, 70: 252-289 Performed By: #### 3 4528-0, 71165-8 ####[facility]ATORYCLIA [id number] [place] [address] PT Coag (PPP) [Time] 11.4 s Normal 9.7-13.0 [facility] Comment on above: Order Comment: Speci men Type: BLOOD SPECIMEN Performed By: #### 3 4528-0, 54491-0 ####[facility]ATORYCLIA [id number] [place] [address] aPTT PPPon 09-26-2020 aPTT Coag (PPP) [Time] 47.6 s High 23.0-32.4 [facility] Comment on above: Order Comment: Speci men Type: BLOOD SPECIMEN Performed By: #### 1 4979-9 ####[facility]ATORYCLIA [id number] [place] [address] aPTT Coag (PPP) [Time] 57.8 s High 23.0-32.4 [facility] Comment on above: Order Comment: Speci men Type: BLOOD SPECIMEN Performed By: #### 1 4979-9 ####[facility]ATORYCLIA [id number] [place] [address] aPTT Coag (PPP) [Time] 47.8 s High 23.0-32.4 [facility] Comment on above: Order Comment: Speci men Type: BLOOD SPECIMEN Performed By: #### 3 4528-0, 53675-1 ####[facility]ORYCLIA [id number] [place] [address] Basic metabolic 2000 panelon 09-25-2020 Anion gap [Moles/Vol] 9 mmol/L Normal 9-18 [facility] Comment on above: Order Comment: Speci men Type: BLOOD SPECIMEN Performed By: #### 2 4321-2 ####[facility]ATORYCLIA [id number] [place] [address] Calcium [Mass/Vol] 8.8 mg/dL Normal 8.5-10.2 [facility] Comment on above: Order Comment: Speci men Type: BLOOD SPECIMEN Performed By: #### 2 4321-2 ####[facility]ORATORYCLIA [id number] [place] [address] Chloride [Moles/Vol] 110 mmol/L High 97-105 [facility] Comment on above: Order Comment: Speci men Type: BLOOD SPECIMEN Performed By: #### 2 4321-2 ####[facility]ORATORYCLIA [id number] [place] [address] CO2 [Moles/Vol] 21 mmol/L Low 22-30 [facility] Comment on above: Order Comment: Speci men Type: BLOOD SPECIMEN Performed By: #### 2 4321-2 ####[facility]ORATORYCLIA [id number] [place] [address] Creatinine [Mass/Vol] 0.93 mg/dL Normal 0.73-1.22 [facility] Comment on above: Order Comment: Speci men Type: BLOOD SPECIMEN Performed By: #### 2 4321-2 ####[facility]ORATORYCLIA [id number] [place] [address] GFR/1.73 sq M.predicted MDRD (S/P/Bld) [Vol rate/Area] mL/min/{1.73_m2} Normal [facility] Comment on above: Order Comment: Speci men Type: BLOOD SPECIMEN Result Comment: >60e GFR (Estimated GFR) Units of measure: mL/min/1.73 meters squaredeGFR is derived from the reexpressed MDRD Study equation using the following parameters: serum creatinine, age, gender and race. The creatinine assay has been calibrated to be traceable to IDMS. An eGFR <60 mL/min/1.73m2 for >3 months is consistent with chronic kidney disease. Refer to KDOQI guidelines for clinical interpretation. In patients with unstable renal function, e.g. those with acute kidney injury, the eGFR may not accurately reflect actual GFR. Performed By: #### 2 4321-2 ####[facility]ORATORYCLIA [id number] [place] [address] Glucose [Mass/Vol] 170 mg/dL High 74-99 [facility] Comment on above: Order Comment: Speci men Type: BLOOD SPECIMEN Result Comment: The [place] Diabetes [employer] (ADA) provides guidance for cutoff values for fasting glucose and random glucose. The ADA defines fasting as no caloric intake for at least 8 hours. Fasting plasma glucose results between 100 to 125 mg/dL indicate increased risk for diabetes (prediabetes).Fasting plasma glucose results greater than or equal to 126 mg/dL meet the criteria for diagnosis of diabetes. In the absence of unequivocal hyperglycemia, results should be confirmed by repeat testing. In a patient with classic symptoms of hyperglycemia or hyperglycemic crisis, random plasma glucose results greater than or equal to 200 mg/dL meet the criteria for diagnosis of diabetes.Reference: Standards of Medical Care in Diabetes 2016, [place] [employer]. Diabetes Care. 2016.39(Suppl 1). Performed By: #### 2 4321-2 ####[facility]ORATORYCLIA [id number] [place] [address] Potassium [Moles/Vol] 4.0 mmol/L Normal 3.7-5.1 [facility] Comment on above: Order Comment: Speci men Type: BLOOD SPECIMEN Performed By: #### 2 4321-2 ####[facility]ORATORYCLIA [id number] [place] [address] Sodium [Moles/Vol] 140 mmol/L Normal 136-144 [facility] Comment on above: Order Comment: Speci men Type: BLOOD SPECIMEN Performed By: #### 2 4321-2 ####[facility]ORATORYCLIA [id number] [place] [address] Urea nitrogen [Mass/Vol] 7 mg/dL Low 9-24 [facility] Comment on above: Order Comment: Speci men Type: BLOOD SPECIMEN Performed By: #### 2 4321-2 ####[facility]ORATORYCLIA [id number] [place] [address] CASE MANAGEMon 09-25-2020 CASE MANAGEM Normal [facility] CBC panel Auto (Bld)on 09-25 Erythrocyte distribution width (RBC) [Ratio] 18.6 % High 11.5-15.0 [facility] Comment on above: Order Comment: Speci men Type: BLOOD SPECIMEN Performed By: #### 5 8410-2 ####[facility]ATORYCLIA [id number] [place] [address] Hematocrit (Bld) [Volume fraction] 28.6 % Low 39.0-51.0 [facility] Comment on above: Order Comment: Speci men Type: BLOOD SPECIMEN Performed By: #### 5 8410-2 ####[facility]ORATORYCLIA [id number] [place] [address] Hemoglobin (Bld) [Mass/Vol] 8.9 g/dL Low 13.0-17.0 [facility] Comment on above: Order Comment: Speci men Type: BLOOD SPECIMEN Performed By: #### 5 8410-2 ####[facility]ORATORYCLIA [id number] [place] [address] MCH (RBC) [Entitic mass] 24.6 pg Low 26.0-34.0 [facility] Comment on above: Order Comment: Speci men Type: BLOOD SPECIMEN Performed By: #### 5 8410-2 ####[facility]ORATORYCLIA [id number] [place] [address] MCHC (RBC) [Mass/Vol] 31.1 g/dL Normal 30.5-36.0 [facility] Comment on above: Order Comment: Speci men Type: BLOOD SPECIMEN Performed By: #### 5 8410-2 ####[facility]ORATORYCLIA [id number] [place] [address] MCV (RBC) [Entitic vol] 79.0 fL Low 80.0-100.0 [facility] Comment on above: Order Comment: Speci men Type: BLOOD SPECIMEN Performed By: #### 5 8410-2 ####[facility]ORATORYCLIA [id number] [place] [address] Nucleated RBC (Bld) [#/Vol] 10*3/uL Normal <0.01 [facility] Comment on above: Order Comment: Speci men Type: BLOOD SPECIMEN Performed By: #### 5 8410-2 ####[facility]ORATORYCLIA [id number] [place] [address] Platelet mean volume (Bld) [Entitic vol] 10.1 fL Normal 9.0-12.7 [facility] Comment on above: Order Comment: Speci men Type: BLOOD SPECIMEN Performed By: #### 5 8410-2 ####[facility]ORATORYCLIA [id number] [place] [address] Platelets (Bld) [#/Vol] 302 10*3/uL Normal 150-400 [facility] Comment on above: Order Comment: Speci men Type: BLOOD SPECIMEN Performed By: #### 5 8410-2 ####[facility]ATORYCLIA [id number] [place] [address] RBC (Bld) [#/Vol] 3.62 10*6/uL Low 4.20-6.00 [facility] Comment on above: Order Comment: Speci men Type: BLOOD SPECIMEN Performed By: #### 5 8410-2 ####[facility]ATORYCLIA [id number] [place] [address] WBC (Bld) [#/Vol] 5.61 10*3/uL Normal 3.70-11.00 [facility] Comment on above: Order Comment: Speci men Type: BLOOD SPECIMEN Performed By: #### 5 8410-2 ####[facility]ORATORYCLIA [id number] [place] [address] CONSULT PROGon 09-25-2020 CONSULT PROG Normal [facility] CONSULT PROG Normal [facility] CONSULT PROG Normal [facility] CONSULT PROG Normal [facility] PT panel Coag (PPP)on 2020 INR Coag (PPP) [Relative time] 1.1 {INR} Normal 0.9-1.3 [facility] Comment on above: Order Comment: Speci men Type: BLOOD SPECIMEN Result Comment: Aislinn min K Antagonist (VKA) Therapeutic Range: INR 2 to 3 (Target INR of 2.5)Note: For patients treated with VKA drugs, such as warfarin, the [place] [employer] 2012 Guideline recommends a therapeutic INR range of 2 to 3 (target INR of 2.5). This recommendation includes high-risk patients with antiphospholipid syndrome with previous arterial or venous thromboembolism, current-generation mechanical or bioprosthetic aortic heart valve replacement.Note: Patients with mechanical aortic valve replacement and additional risk factors for thromboembolic events (atrial fibrillation, previous thromboembolism, LV dysfunction, hypercoagulable conditions) or an older generation mechanical AVR (i.e., ball in-Cage) or any mechanical MVR should have a INR therapeutic range of 2.5 to 3.5 (target INR of 3).Nan GH, et al. Chest 2012, 141:7S-47SNishimura RA, et al. [facility] 2017, 70: 252-289 Performed By: #### 1 4979-9, 69644-7 ####[facility]ORATORYCLIA [id number] [place] [address] PT Coag (PPP) [Time] 11.7 s Normal 9.7-13.0 [facility] Comment on above: Order Comment: Speci men Type: BLOOD SPECIMEN Performed By: #### 1 4979-9, 05009-4 ####[facility]ORATORYCLIA [id number] [place] [address] Vancomycin random [Mass/Vol] on 09-25-2020 Vancomycin [Mass/Vol] 31.3 ug/mL High 10.0-20.0 [facility] Comment on above: Order Comment: Speci men Type: BLOOD SPECIMEN Result Comment: Refe rence ranges and high/low indicator flags are provided as general guidelines only. The treating physician must determine appropriate target levels/dosing based on the specific clinical situation. Performed By: #### 4 091-5 ####[facility]ORATORYCLIA [id number] [place] [address] aPTT PPPon 09-25-2020 aPTT Coag (PPP) [Time] 54.4 s High 23.0-32.4 [facility] Comment on above: Order Comment: Speci men Type: BLOOD SPECIMEN Performed By: #### 1 4979-9, 36305-0 ####[facility]ORATORYCLIA [id number] [place] [address] ALLIED HEALTHon 09-24-2020 ALLIED HEALTH Normal [facility] CASE MANAGEMon 09-24-2020 CASE MANAGEM Normal [facility] CBC panel Auto (Bld)on 09-24 Erythrocyte distribution width (RBC) [Ratio] 18.6 % High 11.5-15.0 [facility] Comment on above: Order Comment: Speci men Type: BLOOD SPECIMEN Performed By: #### 5 8410-2 ####[facility]ORATORYCLIA [id number] [place] [address] Hematocrit (Bld) [Volume fraction] 26.0 % Low 39.0-51.0 [facility] Comment on above: Order Comment: Speci men Type: BLOOD SPECIMEN Performed By: #### 5 8410-2 ####[facility]ORATORYCLIA [id number] [place] [address] Hemoglobin (Bld) [Mass/Vol] 8.2 g/dL Low 13.0-17.0 [facility] Comment on above: Order Comment: Speci men Type: BLOOD SPECIMEN Performed By: #### 5 8410-2 ####[facility]ORATORYCLIA [id number] [place] [address] MCH (RBC) [Entitic mass] 24.4 pg Low 26.0-34.0 [facility] Comment on above: Order Comment: Speci men Type: BLOOD SPECIMEN Performed By: #### 5 8410-2 ####[facility]ORATORYCLIA [id number] [place] [address] MCHC (RBC) [Mass/Vol] 31.5 g/dL Normal 30.5-36.0 [facility] Comment on above: Order Comment: Speci men Type: BLOOD SPECIMEN Performed By: #### 5 8410-2 ####[facility]ORATORYCLIA [id number] [place] [address] MCV (RBC) [Entitic vol] 77.4 fL Low 80.0-100.0 [facility] Comment on above: Order Comment: Speci men Type: BLOOD SPECIMEN Performed By: #### 5 8410-2 ####[facility]ATORYCLIA [id number] [place] [address] Nucleated RBC (Bld) [#/Vol] 10*3/uL Normal <0.01 [facility] Comment on above: Order Comment: Speci men Type: BLOOD SPECIMEN Performed By: #### 5 8410-2 ####[facility]ATORYCLIA [id number] [place] [address] Platelet mean volume (Bld) [Entitic vol] 9.2 fL Normal 9.0-12.7 [facility] Comment on above: Order Comment: Speci men Type: BLOOD SPECIMEN Performed By: #### 5 8410-2 ####[facility]ATORYCLIA [id number] [place] [address] Platelets (Bld) [#/Vol] 258 10*3/uL Normal 150-400 [facility] Comment on above: Order Comment: Speci men Type: BLOOD SPECIMEN Performed By: #### 5 8410-2 ####[facility]ORATORYCLIA [id number] [place] [address] RBC (Bld) [#/Vol] 3.36 10*6/uL Low 4.20-6.00 [facility] Comment on above: Order Comment: Speci men Type: BLOOD SPECIMEN Performed By: #### 5 8410-2 ####[facility]ATORYCLIA [id number] [place] [address] WBC (Bld) [#/Vol] 4.64 10*3/uL Normal 3.70-11.00 [facility] Comment on above: Order Comment: Speci men Type: BLOOD SPECIMEN Performed By: #### 5 8410-2 ####[facility]ATORYCLIA [id number] [place] [address] Erythrocyte distribution width (RBC) [Ratio] 18.8 % High 11.5-15.0 [facility] Comment on above: Order Comment: Speci men Type: BLOOD SPECIMEN Performed By: #### 5 8410-2 ####[facility]ATORYCLIA [id number] [place] [address] Hematocrit (Bld) [Volume fraction] 24.9 % Low 39.0-51.0 [facility] Comment on above: Order Comment: Speci men Type: BLOOD SPECIMEN Performed By: #### 5 8410-2 ####[facility]ATORYCLIA [id number] [place] [address] Hemoglobin (Bld) [Mass/Vol] 7.5 g/dL Low 13.0-17.0 [facility] Comment on above: Order Comment: Speci men Type: BLOOD SPECIMEN Performed By: #### 5 8410-2 ####[facility]ATORYCLIA [id number] [place] [address] MCH (RBC) [Entitic mass] 24.2 pg Low 26.0-34.0 [facility] Comment on above: Order Comment: Speci men Type: BLOOD SPECIMEN Performed By: #### 5 8410-2 ####[facility]ATORYCLIA [id number] [place] [address] MCHC (RBC) [Mass/Vol] 30.1 g/dL Low 30.5-36.0 [facility] Comment on above: Order Comment: Speci men Type: BLOOD SPECIMEN Performed By: #### 5 8410-2 ####[facility]ATORYCLIA [id number] [place] [address] MCV (RBC) [Entitic vol] 80.3 fL Normal 80.0-100.0 [facility] Comment on above: Order Comment: Speci men Type: BLOOD SPECIMEN Performed By: #### 5 8410-2 ####[facility]ATORYCLIA [id number] [place] [address] Nucleated RBC (Bld) [#/Vol] 10*3/uL Normal <0.01 [facility] Comment on above: Order Comment: Speci men Type: BLOOD SPECIMEN Performed By: #### 5 8410-2 ####[facility]ATORYCLIA [id number] [place] [address] Platelet mean volume (Bld) [Entitic vol] 9.7 fL Normal 9.0-12.7 [facility] Comment on above: Order Comment: Speci men Type: BLOOD SPECIMEN Performed By: #### 5 8410-2 ####[facility]ORATORYCLIA [id number] [place] [address] Platelets (Bld) [#/Vol] 266 10*3/uL Normal 150-400 [facility] Comment on above: Order Comment: Speci men Type: BLOOD SPECIMEN Performed By: #### 5 8410-2 ####[facility]ATORYCLIA [id number] [place] [address] RBC (Bld) [#/Vol] 3.10 10*6/uL Low 4.20-6.00 [facility] Comment on above: Order Comment: Speci men Type: BLOOD SPECIMEN Performed By: #### 5 8410-2 ####[facility]ATORYCLIA [id number] [place] [address] WBC (Bld) [#/Vol] 5.55 10*3/uL Normal 3.70-11.00 [facility] Comment on above: Order Comment: Speci men Type: BLOOD SPECIMEN Performed By: #### 5 8410-2 ####[facility]ORATORYCLIA [id number] [place] [address] CONSULT PROGon 09-24-2020 CONSULT PROG Normal [facility] CONSULT PROG Normal [facility] CONSULT PROG Normal [facility] Comprehensive metabolic 2000 panelon 09-24-2020 Albumin [Mass/Vol] 3.0 g/dL Low 3.9-4.9 [facility] Comment on above: Order Comment: Speci men Type: BLOOD SPECIMEN Performed By: #### 1 4338-8, 36075-7 ####[facility]ORYCLIA [id number] [place] [address] ALP [Catalytic activity/Vol] 85 U/L Normal 38-113 [facility] Comment on above: Order Comment: Speci men Type: BLOOD SPECIMEN Performed By: #### 1 4338-8, 05720-8 ####[facility]ORYCLIA [id number] [place] [address] ALT With P-5'-P [Catalytic activity/Vol] 19 U/L Normal 10-54 [facility] Comment on above: Order Comment: Speci men Type: BLOOD SPECIMEN Performed By: #### 1 4338-8, 41288-5 ####[facility]ORYCLIA [id number] [place] [address] Anion gap [Moles/Vol] 8 mmol/L Low 9-18 [facility] Comment on above: Order Comment: Speci men Type: BLOOD SPECIMEN Performed By: #### 1 4338-8, 64617-3 ####[facility]ORYCLIA [id number] [place] [address] AST With P-5'-P [Catalytic activity/Vol] 18 U/L Normal 14-40 [facility] Comment on above: Order Comment: Speci men Type: BLOOD SPECIMEN Performed By: #### 1 4338-8, 43359-4 ####[facility]ORYCLIA [id number] [place] [address] Bilirubin [Mass/Vol] 0.3 mg/dL Normal 0.2-1.3 [facility] Comment on above: Order Comment: Speci men Type: BLOOD SPECIMEN Performed By: #### 1 4338-8, 86316-2 ####[facility]ORATORYCLIA [id number] [place] [address] Calcium [Mass/Vol] 8.2 mg/dL Low 8.5-10.2 [facility] Comment on above: Order Comment: Speci men Type: BLOOD SPECIMEN Performed By: #### 1 4338-8, 87231-4 ####[facility]ORYCLIA [id number] [place] [address] Chloride [Moles/Vol] 111 mmol/L High 97-105 [facility] Comment on above: Order Comment: Speci men Type: BLOOD SPECIMEN Performed By: #### 1 4338-8, 52020-6 ####[facility]ORYCLIA [id number] [place] [address] CO2 [Moles/Vol] 22 mmol/L Normal 22-30 [facility] Comment on above: Order Comment: Speci men Type: BLOOD SPECIMEN Performed By: #### 1 4338-8, ####[facility]ORATORYCLIA [id number] [place] [address] Creatinine [Mass/Vol] 0.78 mg/dL Normal 0.73-1.22 [facility] Comment on above: Order Comment: Speci men Type: BLOOD SPECIMEN Performed By: #### 1 4338-8, ####[facility]ORATORYCLIA [id number] [place] [address] GFR/1.73 sq M.predicted MDRD (S/P/Bld) [Vol rate/Area] mL/min/{1.73_m2} Normal [facility] Comment on above: Order Comment: Speci men Type: BLOOD SPECIMEN Result Comment: >60e GFR (Estimated GFR) Units of measure: mL/min/1.73 meters squaredeGFR is derived from the reexpressed MDRD Study equation using the following parameters: serum creatinine, age, gender and race. The creatinine assay has been calibrated to be traceable to IDMS. An eGFR <60 mL/min/1.73m2 for >3 months is consistent with chronic kidney disease. Refer to KDOQI guidelines for clinical interpretation. In patients with unstable renal function, e.g. those with acute kidney injury, the eGFR may not accurately reflect actual GFR. Performed By: #### 1 4338-8, ####[facility]ORATORYCLIA [id number] [place] [address] Glucose [Mass/Vol] 115 mg/dL High 74-99 [facility] Comment on above: Order Comment: [facility] Type: BLOOD SPECIMEN Result Comment: The [place] Diabetes [employer] (ADA) provides guidance for cutoff values for fasting glucose and random glucose. The ADA defines fasting as no caloric intake for at least 8 hours. Fasting plasma glucose results between 100 to 125 mg/dL indicate increased risk for diabetes (prediabetes).Fasting plasma glucose results greater than or equal to 126 mg/dL meet the criteria for diagnosis of diabetes. In the absence of unequivocal hyperglycemia, results should be confirmed by repeat testing. In a patient with classic symptoms of hyperglycemia or hyperglycemic crisis, random plasma glucose results greater than or equal to 200 mg/dL meet the criteria for diagnosis of diabetes.Reference: Standards of Medical Care in Diabetes 2016, [place] [employer]. Diabetes Care. 2016.39(Suppl 1). Performed By: #### 1 4338-8, 28485-8 ####[facility] LABORATORYCLIA [id number] [place] [address] Potassium [Moles/Vol] 4.2 mmol/L Normal 3.7-5.1 [facility] Comment on above: Order Comment: Speci men Type: BLOOD SPECIMEN Performed By: #### 1 4338-8, 31519-4 ####[facility] LABORATORYCLIA [id number] [place] [address] Protein [Mass/Vol] 5.1 g/dL Low 6.3-8.0 [facility] Comment on above: Order Comment: Speci men Type: BLOOD SPECIMEN Performed By: #### 1 4338-8, 66960-9 ####[facility] LABORATORYCLIA [id number] [place] [address] Sodium [Moles/Vol] 141 mmol/L Normal 136-144 [facility] Comment on above: Order Comment: Speci men Type: BLOOD SPECIMEN Performed By: #### 1 4338-8, 71877-9 ####[facility] LABORATORYCLIA [id number] [place] [address] Urea nitrogen [Mass/Vol] 5 mg/dL Low 9-24 [facility] Comment on above: Order Comment: Speci men Type: BLOOD SPECIMEN Performed By: #### 1 4338-8, 86728-9 ####[facility] LABORATORYCLIA [id number] [place] [address] PT panel Coag (PPP)on 2020 INR Coag (PPP) [Relative time] 1.3 {INR} Normal 0.9-1.3 [facility] Comment on above: Order Comment: Speci men Type: BLOOD SPECIMEN Result Comment: Aislinn min K Antagonist (VKA) Therapeutic Range: INR 2 to 3 (Target INR of 2.5)Note: For patients treated with VKA drugs, such as warfarin, the [place] [employer] 2012 Guideline recommends a therapeutic INR range of 2 to 3 (target INR of 2.5). This recommendation includes high-risk patients with antiphospholipid syndrome with previous arterial or venous thromboembolism, current-generation mechanical or bioprosthetic aortic heart valve replacement.Note: Patients with mechanical aortic valve replacement and additional risk factors for thromboembolic events (atrial fibrillation, previous thromboembolism, LV dysfunction, hypercoagulable conditions) or an older generation mechanical AVR (i.e., ball in-Cage) or any mechanical MVR should have a INR therapeutic range of 2.5 to 3.5 (target INR of 3).Nan GH, et al. Chest 2012, 141:7S-47SNishimanil RA, et al. [facility] 2017, 70: 252-289 Performed By: #### 3 4528-0, 67497-7 ####[facility] LABORATORYCLIA [id number] [place] [address] PT Coag (PPP) [Time] 12.9 s Normal 9.7-13.0 [facility] Comment on above: Order Comment: Speci men Type: BLOOD SPECIMEN Performed By: #### 3 4528-0, 74047-7 ####[facility] LABORATORYCLIA [id number] [place] [address] Prealbumin [Mass/Vol]on 09-15 Prealbumin Nephelometry [Mass/Vol] 11 mg/dL Low -36 [facility] Comment on above: Order Comment: Speci men Type: BLOOD SPECIMEN Performed By: #### 1 4338-8, 48767-7 ####[facility] LABORATORYCLIA [id number] [place] [address] STAPH AUREUS PCRon S. aureus and MRSA panel SCAR+probe (Nose) Normal Negative [facility] Comment on above: Order Comment: Speci men Type: SWAB OF INTERNAL NOSE Result Comment: Nega tive for Staphylococcus aureus by PCR.Negative for MRSA by PCR Performed By: #### S APCR ####[facility] LABORATORYCLIA [id number] [place] [address] TYPE AND SCREENon 09-24-2020 ABO B Normal [facility] Comment on above: Order Comment: Speci men Type: BLOOD SPECIMEN Performed By: #### T SCR ####[facility] BANKCLIA [id number] HISTORICAL AB SCR STATUS Negative Normal [facility] Comment on above: Order Comment: Speci men Type: BLOOD SPECIMEN Performed By: #### T SCR ####[facility] BANKCLIA [id number] Rh Nom (Bld) Positive Normal [facility] Comment on above: Order Comment: Speci men Type: BLOOD SPECIMEN Performed By: #### T SCR ####[facility]LO[facility] BANKCLIA [id number] TYPE AND SCREEN EXPIRATION 09/27/2020 23:59 Normal [facility] Comment on above: Order Comment: Speci men Type: BLOOD SPECIMEN Performed By: #### T SCR ####[facility]LO[facility] BANKCLIA [id number] XR CHEST 1V FRONTALon 2020 XR CHEST 1V FRONTAL Final Report DATE OF EXAM: Sep 24 2020 5:44AM AKX [id number] - XR CHEST 1V FRONTAL / PROCEDURE REASON: Post-operative / post-procedure assessment, asymptomatic Physician Interpretation EXAMINATION: CHEST RADIOGRAPH (SINGLE VIEW AP OR PA) CLINICAL HISTORY: Post-operative / post-procedure assessment, asymptomatic MQ: XC1_5 Comparison: Chest x-ray 09/23/2020, chest CT 09/21/2020 RESULT: Lines, tubes, and devices: nuclear monitoring technician leads overlie the thorax. Lungs and pleura: No consolidation. No lung mass. No pleural effusion. There is a 5 mm pulmonary nodule at the right lung base. Cardiomediastinal silhouette: Normal cardiomediastinal silhouette. Other: Sternal fixation hardware has been removed. IMPRESSION: No acute radiographic abnormality. There is a 5 mm pulmonary nodule in right lung base. This nodule is described on the recent chest CT from 09/21/2020. A follow-up chest CT in one year was recommended to assess for stability of pulmonary nodules. ACTIONABLE RESULT: FOLLOW-UP Acuity: Actionable Findings: Thoracic-Lung nodules Routing code: RI_1 Recommendation: CT Chest WO IVCON Time Frame: In one year. COMMUNICATION: Results will be communicated with the ordering provider via Task Messenger staff message or phone message by [employer] within 2 business days of report finalization. Algorithms for management of incidental imaging findings can be found on the [facility] Intranet Sharepoint site at: [email or web address] [email or web address] [email or web address] [email or web address] Pure Pak Machine Operator: DHARMESH Transcribe Date/Time: Sep 24 2020 7:06A Dictated by : NARENDRA NOVA MD This examination was interpreted and the report reviewed and electronically signed by: NARENDRA NOVA MD on Sep 24 2020 7:11AM EST ACTIONABLE Normal [facility] aPTT PPPon 09-24-2020 aPTT Coag (PPP) [Time] 71.9 s High 23.0-32.4 [facility] Comment on above: Order Comment: Speci men Type: BLOOD SPECIMEN Performed By: #### 3 4528-0, 08205-3 ####[facility] LABORATORYCLIA [id number] [place] [address] aPTT Coag (PPP) [Time] 71.9 s High 23.0-32.4 [facility] Comment on above: Order Comment: Speci men Type: BLOOD SPECIMEN Performed By: #### 1 4979-9 ####[facility] LABORATORYCLIA [id number] [place] [address] ALLIED HEALTHon 09-23-2020 ALLIED HEALTH Normal [facility] Basic metabolic 2000 panelon 09-23-2020 Anion gap [Moles/Vol] 6 mmol/L Low 9-18 [facility] Comment on above: Order Comment: Speci men Type: BLOOD SPECIMEN Performed By: #### 2 4321-2 ####[facility] LABORATORYCLIA [id number] [place] [address] Calcium [Mass/Vol] 8.3 mg/dL Low 8.5-10.2 [facility] Comment on above: Order Comment: Speci men Type: BLOOD SPECIMEN Performed By: #### 2 4321-2 ####[facility] LABORATORYCLIA [id number] [place] [address] Chloride [Moles/Vol] 103 mmol/L Normal 97-105 [facility] Comment on above: Order Comment: Speci men Type: BLOOD SPECIMEN Performed By: #### 2 4321-2 ####[facility] LABORATORYCLIA [id number] [place] [address] CO2 [Moles/Vol] 24 mmol/L Normal 22-30 [facility] Comment on above: Order Comment: Speci men Type: BLOOD SPECIMEN Performed By: #### 2 4321-2 ####[facility] LABORATORYCLIA [id number] [place] [address] Creatinine [Mass/Vol] 0.70 mg/dL Low 0.73-1.22 [facility] Comment on above: Order Comment: Speci men Type: BLOOD SPECIMEN Performed By: #### 2 4321-2 ####[facility] LABORATORYCLIA [id number] [place] [address] GFR/1.73 sq M.predicted MDRD (S/P/Bld) [Vol rate/Area] mL/min/{1.73_m2} Normal [facility] Comment on above: Order Comment: Speci men Type: BLOOD SPECIMEN Result Comment: >60e GFR (Estimated GFR) Units of measure: mL/min/1.73 meters squaredeGFR is derived from the reexpressed MDRD Study equation using the following parameters: serum creatinine, age, gender and race. The creatinine assay has been calibrated to be traceable to IDMS. An eGFR <60 mL/min/1.73m2 for >3 months is consistent with chronic kidney disease. Refer to KDOQI guidelines for clinical interpretation. In patients with unstable renal function, e.g. those with acute kidney injury, the eGFR may not accurately reflect actual GFR. Performed By: #### 2 4321-2 ####[facility] LABORATORYCLIA [id number] [place] [address] Glucose [Mass/Vol] 359 mg/dL High 74-99 [facility] Comment on above: Order Comment: Speci men Type: BLOOD SPECIMEN Result Comment: The [place] Diabetes Association (ADA) provides guidance for cutoff values for fasting glucose and random glucose. The ADA defines fasting as no caloric intake for at least 8 hours. Fasting plasma glucose results between 100 to 125 mg/dL indicate increased risk for diabetes (prediabetes).Fasting plasma glucose results greater than or equal to 126 mg/dL meet the criteria for diagnosis of diabetes. In the absence of unequivocal hyperglycemia, results should be confirmed by repeat testing. In a patient with classic symptoms of hyperglycemia or hyperglycemic crisis, random plasma glucose results greater than or equal to 200 mg/dL meet the criteria for diagnosis of diabetes.Reference: Standards of Medical Care in Diabetes 2016, [place] [employer]. Diabetes Care. 2016.39(Suppl 1). Performed By: #### 2 4321-2 ####[facility] LABORATORYCLIA [id number] [place] [address] Potassium [Moles/Vol] 4.4 mmol/L Normal 3.7-5.1 [facility] Comment on above: Order Comment: Speci men Type: BLOOD SPECIMEN Performed By: #### 2 4321-2 ####[facility] LABORATORYCLIA [id number] [place] [address] Sodium [Moles/Vol] 133 mmol/L Low 136-144 [facility] Comment on above: Order Comment: Speci men Type: BLOOD SPECIMEN Performed By: #### 2 4321-2 ####[facility] LABORATORYCLIA [id number] [place] [address] Urea nitrogen [Mass/Vol] 5 mg/dL Low 9-24 [facility] Comment on above: Order Comment: Speci men Type: BLOOD SPECIMEN Performed By: #### 2 4321-2 ####[facility] LABORATORYCLIA [id number] [place] [address] CASE MANAGEMon 09-23-2020 CASE MANAGEM Normal [facility] CBC panel Auto (Bld)on 09-23 Erythrocyte distribution width (RBC) [Ratio] 18.8 % High 11.5-15.0 [facility] Comment on above: Order Comment: Speci men Type: BLOOD SPECIMEN Performed By: #### 5 8410-2 ####[facility] LABORATORYCLIA [id number] [place] [address] Hematocrit (Bld) [Volume fraction] 26.7 % Low 39.0-51.0 [facility] Comment on above: Order Comment: Speci men Type: BLOOD SPECIMEN Performed By: #### 5 8410-2 ####[facility] LABORATORYCLIA [id number] [place] [address] Hemoglobin (Bld) [Mass/Vol] 8.0 g/dL Low 13.0-17.0 [facility] Comment on above: Order Comment: Speci men Type: BLOOD SPECIMEN Performed By: #### 5 8410-2 ####[facility] LABORATORYCLIA [id number] [place] [address] MCH (RBC) [Entitic mass] 24.0 pg Low 26.0-34.0 [facility] Comment on above: Order Comment: Speci men Type: BLOOD SPECIMEN Performed By: #### 5 8410-2 ####[facility] LABORATORYCLIA [id number] [place] [address] MCHC (RBC) [Mass/Vol] 30.0 g/dL Low 30.5-36.0 [facility] Comment on above: Order Comment: Speci men Type: BLOOD SPECIMEN Performed By: #### 5 8410-2 ####[facility] LABORATORYCLIA [id number] [place] [address] MCV (RBC) [Entitic vol] 79.9 fL Low 80.0-100.0 [facility] Comment on above: Order Comment: Speci men Type: BLOOD SPECIMEN Performed By: #### 5 8410-2 ####[facility] LABORATORYCLIA [id number] [place] [address] Nucleated RBC (Bld) [#/Vol] 10*3/uL Normal <0.01 [facility] Comment on above: Order Comment: Speci men Type: BLOOD SPECIMEN Performed By: #### 5 8410-2 ####[facility] LABORATORYCLIA [id number] [place] [address] Platelet mean volume (Bld) [Entitic vol] 9.8 fL Normal 9.0-12.7 [facility] Comment on above: Order Comment: Speci men Type: BLOOD SPECIMEN Performed By: #### 5 8410-2 ####[facility]ORATORYCLIA [id number] [place] [address] Platelets (Bld) [#/Vol] 274 10*3/uL Normal 150-400 [facility] Comment on above: Order Comment: Speci men Type: BLOOD SPECIMEN Performed By: #### 5 8410-2 ####[facility] LABORATORYCLIA [id number] [place] [address] RBC (Bld) [#/Vol] 3.34 10*6/uL Low 4.20-6.00 [facility] Comment on above: Order Comment: Speci men Type: BLOOD SPECIMEN Performed By: #### 5 8410-2 ####[facility] LABORATORYCLIA [id number] [place] [address] WBC (Bld) [#/Vol] 6.82 10*3/uL Normal 3.70-11.00 [facility] Comment on above: Order Comment: Speci men Type: BLOOD SPECIMEN Performed By: #### 5 8410-2 ####[facility] LABORATORYCLIA [id number] [place] [address] Erythrocyte distribution width (RBC) [Ratio] 18.7 % High 11.5-15.0 [facility] Comment on above: Order Comment: Speci men Type: BLOOD SPECIMEN Performed By: #### 5 8410-2 ####[facility]ORATORYCLIA [id number] [place] [address] Hematocrit (Bld) [Volume fraction] 27.1 % Low 39.0-51.0 [facility] Comment on above: Order Comment: Speci men Type: BLOOD SPECIMEN Performed By: #### 5 8410-2 ####[facility]ORATORYCLIA [id number] [place] [address] Hemoglobin (Bld) [Mass/Vol] 8.2 g/dL Low 13.0-17.0 [facility] Comment on above: Order Comment: Speci men Type: BLOOD SPECIMEN Performed By: #### 5 8410-2 ####[facility] LABORATORYCLIA [id number] [place] [address] MCH (RBC) [Entitic mass] 24.3 pg Low 26.0-34.0 [facility] Comment on above: Order Comment: Speci men Type: BLOOD SPECIMEN Performed By: #### 5 8410-2 ####[facility] LABORATORYCLIA [id number] [place] [address] MCHC (RBC) [Mass/Vol] 30.3 g/dL Low 30.5-36.0 [facility] Comment on above: Order Comment: Speci men Type: BLOOD SPECIMEN Performed By: #### 5 8410-2 ####[facility] LABORATORYCLIA [id number] [place] [address] MCV (RBC) [Entitic vol] 80.2 fL Normal 80.0-100.0 [facility] Comment on above: Order Comment: Speci men Type: BLOOD SPECIMEN Performed By: #### 5 8410-2 ####[facility] LABORATORYCLIA [id number] [place] [address] Nucleated RBC (Bld) [#/Vol] 10*3/uL Normal <0.01 [facility] Comment on above: Order Comment: Speci men Type: BLOOD SPECIMEN Performed By: #### 5 8410-2 ####[facility] LABORATORYCLIA [id number] [place] [address] Platelet mean volume (Bld) [Entitic vol] 9.5 fL Normal 9.0-12.7 [facility] Comment on above: Order Comment: Speci men Type: BLOOD SPECIMEN Performed By: #### 5 8410-2 ####[facility] LABORATORYCLIA [id number] [place] [address] Platelets (Bld) [#/Vol] 255 10*3/uL Normal 150-400 [facility] Comment on above: Order Comment: Speci men Type: BLOOD SPECIMEN Performed By: #### 5 8410-2 ####[facility] LABORATORYCLIA [id number] [place] [address] RBC (Bld) [#/Vol] 3.38 10*6/uL Low 4.20-6.00 [facility] Comment on above: Order Comment: Speci men Type: BLOOD SPECIMEN Performed By: #### 5 8410-2 ####[facility] LABORATORYCLIA [id number] [place] [address] WBC (Bld) [#/Vol] 4.85 10*3/uL Normal 3.70-11.00 [facility] Comment on above: Order Comment: Speci men Type: BLOOD SPECIMEN Performed By: #### 5 8410-2 ####[facility] LABORATORYCLIA [id number] [place] [address] CONSULTon 09-23-2020 CONSULT Normal [facility] CONSULT Normal [facility] CONSULT PROGon 09-23-2020 CONSULT PROG Normal [facility] CONSULT PROG Normal [facility] OPERATIVE NOon 09-23-2020 OPERATIVE NO Normal [facility] PT panel Coag (PPP)on 2020 INR Coag (PPP) [Relative time] 1.5 {INR} High 0.9-1.3 [facility] Comment on above: Order Comment: Speci men Type: BLOOD SPECIMEN Result Comment: Aislinn min K Antagonist (VKA) Therapeutic Range: INR 2 to 3 (Target INR of 2.5)Note: For patients treated with VKA drugs, such as warfarin, the [place] [employer] 2012 Guideline recommends a therapeutic INR range of 2 to 3 (target INR of 2.5). This recommendation includes high-risk patients with antiphospholipid syndrome with previous arterial or venous thromboembolism, current-generation mechanical or bioprosthetic aortic heart valve replacement.Note: Patients with mechanical aortic valve replacement and additional risk factors for thromboembolic events (atrial fibrillation, previous thromboembolism, LV dysfunction, hypercoagulable conditions) or an older generation mechanical AVR (i.e., ball in-Cage) or any mechanical MVR should have a INR therapeutic range of 2.5 to 3.5 (target INR of 3).Nan KAPADIA et yael. Chest 2012, 141:7S-47SJessica BARRERA, et al. [facility] 2017, 70: 252-289 Performed By: #### 1 4979-9, 40570-8 ####[facility] LABORATORYCLIA [id number] [place] [address] PT Coag (PPP) [Time] 15.1 s High 9.7-13.0 [facility] Comment on above: Order Comment: Speci men Type: BLOOD SPECIMEN Performed By: #### 1 4979-9, 27084-7 ####[facility] LABORATORYCLIA [id number] [place] [address] INR Coag (PPP) [Relative time] 1.3 {INR} Normal 0.9-1.3 [facility] Comment on above: Order Comment: Speci men Type: BLOOD SPECIMEN Result Comment: Aislinn min K Antagonist (VKA) Therapeutic Range: INR 2 to 3 (Target INR of 2.5)Note: For patients treated with VKA drugs, such as warfarin, the [place] [employer] 2012 Guideline recommends a therapeutic INR range of 2 to 3 (target INR of 2.5). This recommendation includes high-risk patients with antiphospholipid syndrome with previous arterial or venous thromboembolism, current-generation mechanical or bioprosthetic aortic heart valve replacement.Note: Patients with mechanical aortic valve replacement and additional risk factors for thromboembolic events (atrial fibrillation, previous thromboembolism, LV dysfunction, hypercoagulable conditions) or an older generation mechanical AVR (i.e., ball in-Cage) or any mechanical MVR should have a INR therapeutic range of 2.5 to 3.5 (target INR of 3).sterling Wall. Chest 2012, 141:7S-47SJessica BARRERA et al. [facility] 2017, 70: 252-289 Performed By: #### 3 4528-0 ####[facility] LABORATORYCLIA [id number] [place] [address] PT Coag (PPP) [Time] 13.4 s High 9.7-13.0 [facility] Comment on above: Order Comment: Speci men Type: BLOOD SPECIMEN Performed By: #### 3 4528-0 ####[facility] LABORATORYCLIA [id number] [place] [address] XR CHEST 1V FRONTALon 2020 XR CHEST 1V FRONTAL Final Report DATE OF EXAM: Sep 23 2020 5:26AM AKX 5290 - XR CHEST 1V FRONTAL / PROCEDURE REASON: Post-operative / post-procedure assessment, asymptomatic Physician Interpretation EXAMINATION: CHEST RADIOGRAPH (SINGLE VIEW AP OR PA) CLINICAL HISTORY: Post-operative / post-procedure assessment, asymptomatic MQ: XC1_5 Comparison: Chest x-ray September 22, 2020 RESULT: Lines, tubes, and devices: nuclear monitoring technician leads overlie the thorax. Lungs and pleura: Low lung volumes. No pneumothorax, pleural effusion or consolidation. Probable small areas of atelectasis at the lung bases. Cardiomediastinal silhouette: Normal cardiomediastinal silhouette. Other: Osseous structures are unremarkable. IMPRESSION: Low lung volumes with probable small areas of atelectasis at both lung bases. Pure Pak Machine Operator: DHARMESH Transcribe Date/Time: Sep 23 2020 7:48A Dictated by : NARENDRA NOVA MD This examination was interpreted and the report reviewed and electronically signed by: NARENDRA NOVA MD on Sep 23 2020 7:49AM EST Normal [facility] aPTT PPPon 09-23-2020 aPTT Coag (PPP) [Time] 115.0 s High 23.0-32.4 [facility] Comment on above: Order Comment: Speci men Type: BLOOD SPECIMEN Performed By: #### 1 4979-9 ####[facility] LABORATORYCLIA [id number] [place] [address] aPTT Coag (PPP) [Time] s High 23.0-32.4 [facility] Comment on above: Order Comment: Speci men Type: BLOOD SPECIMEN Performed By: #### 1 4979-9, 62245-8 ####[facility] LABORATORYCLIA [id number] [place] [address] ALLIED HEALTHon 09-22-2020 ALLIED HEALTH Normal [facility] ALLIED HEALTH Normal [facility] ANES POSTPROC EVALon 021 ANES POSTPROC EVAL Normal [facility] ANES PRE-OPon 09-22-2020 ANES PRE-OP Normal [facility] BRIEF OP NOTon 09-22-2020 BRIEF OP NOT Normal [facility] Bacteria Spec Anaerobe Culto n 09-22-2020 Bacteria identified Anaer cx Nom (Unsp spec) Negative Normal [facility] Comment on above: Performed By: #### 6 35-3, 6462-6 ####[facility] LABORATORYCLIA [id number] [place] [address] Bacteria identified Anaer cx Nom (Unsp spec) Negative Normal [facility] Comment on above: Performed By: #### 6 462-6, 635-3 ####[facility] LABORATORYCLIA [id number] [place] [address] Bacteria Wnd Culton 09-23-19 21 Bacteria identified Cx Nom (Wound) ORGANISM ID: 1 Rare Sebastian glabrata See scanned results for susceptibilities. GRAM STAIN: No organisms seen Moderate Polymorphonuclear leukocytes Few Mononuclear cells Abnormal [facility] Comment on above: Performed By: #### 6 35-3, 6462-6 ####[facility] LABORATORYCLIA [id number] [place] [address] Bacteria identified Cx Nom (Wound) ORGANISM ID: 1 Rare Sebastian albicans See Scanned Document for Susceptibilities GRAM STAIN: No organisms seen Few Polymorphonuclear leukocytes Few Mononuclear cells Many Red Blood Cells Abnormal [facility] Comment on above: Performed By: #### 6 462-6, 635-3 ####[facility]ORATORYCLIA [id number] [place] [address] Basic metabolic 2000 panelon 09-22-2020 Anion gap [Moles/Vol] 7 mmol/L Low 9-18 [facility] Comment on above: Order Comment: Speci men Type: BLOOD SPECIMEN Performed By: #### 2 4321-2 ####[facility] LABORATORYCLIA [id number] [place] [address] Calcium [Mass/Vol] 8.4 mg/dL Low 8.5-10.2 [facility] Comment on above: Order Comment: Speci men Type: BLOOD SPECIMEN Performed By: #### 2 4321-2 ####[facility] LABORATORYCLIA [id number] [place] [address] Chloride [Moles/Vol] 104 mmol/L Normal 97-105 [facility] Comment on above: Order Comment: Speci men Type: BLOOD SPECIMEN Performed By: #### 2 4321-2 ####[facility] LABORATORYCLIA [id number] [place] [address] CO2 [Moles/Vol] 24 mmol/L Normal 22-30 [facility] Comment on above: Order Comment: Speci men Type: BLOOD SPECIMEN Performed By: #### 2 4321-2 ####[facility] LABORATORYCLIA [id number] [place] [address] Creatinine [Mass/Vol] 0.67 mg/dL Low 0.73-1.22 [facility] Comment on above: Order Comment: Speci men Type: BLOOD SPECIMEN Performed By: #### 2 4321-2 ####[facility] LABORATORYCLIA [id number] [place] [address] GFR/1.73 sq M.predicted MDRD (S/P/Bld) [Vol rate/Area] mL/min/{1.73_m2} Normal [facility] Comment on above: Order Comment: Speci men Type: BLOOD SPECIMEN Result Comment: >60e GFR (Estimated GFR) Units of measure: mL/min/1.73 meters squaredeGFR is derived from the reexpressed MDRD Study equation using the following parameters: serum creatinine, age, gender and race. The creatinine assay has been calibrated to be traceable to IDMS. An eGFR <60 mL/min/1.73m2 for >3 months is consistent with chronic kidney disease. Refer to KDOQI guidelines for clinical interpretation. In patients with unstable renal function, e.g. those with acute kidney injury, the eGFR may not accurately reflect actual GFR. Performed By: #### 2 4321-2 ####[facility] LABORATORYCLIA [id number] [place] [address] Glucose [Mass/Vol] 200 mg/dL High 74-99 [facility] Comment on above: Order Comment: Speci men Type: BLOOD SPECIMEN Result Comment: The [place] Diabetes Association (ADA) provides guidance for cutoff values for fasting glucose and random glucose. The ADA defines fasting as no caloric intake for at least 8 hours. Fasting plasma glucose results between 100 to 125 mg/dL indicate increased risk for diabetes (prediabetes).Fasting plasma glucose results greater than or equal to 126 mg/dL meet the criteria for diagnosis of diabetes. In the absence of unequivocal hyperglycemia, results should be confirmed by repeat testing. In a patient with classic symptoms of hyperglycemia or hyperglycemic crisis, random plasma glucose results greater than or equal to 200 mg/dL meet the criteria for diagnosis of diabetes.Reference: Standards of Medical Care in Diabetes 2016, [place] Diabetes [employer]. Diabetes Care. 2016.39(Suppl 1). Performed By: #### 2 4321-2 ####[facility] LABORATORYCLIA [id number] [place] [address] Potassium [Moles/Vol] 4.0 mmol/L Normal 3.7-5.1 [facility] Comment on above: Order Comment: Speci men Type: BLOOD SPECIMEN Performed By: #### 2 4321-2 ####[facility] LABORATORYCLIA [id number] [place] [address] Sodium [Moles/Vol] 135 mmol/L Low 136-144 [facility] Comment on above: Order Comment: Speci men Type: BLOOD SPECIMEN Performed By: #### 2 4321-2 ####[facility] LABORATORYCLIA [id number] [place] [address] Urea nitrogen [Mass/Vol] 6 mg/dL Low 9-24 [facility] Comment on above: Order Comment: Speci men Type: BLOOD SPECIMEN Performed By: #### 2 4321-2 ####[facility] LABORATORYCLIA [id number] [place] [address] Anion gap [Moles/Vol] 8 mmol/L Low 9-18 [facility] Comment on above: Order Comment: Speci men Type: BLOOD SPECIMEN Performed By: #### 2 4321-2 ####[facility] LABORATORYCLIA [id number] [place] [address] Calcium [Mass/Vol] 8.8 mg/dL Normal 8.5-10.2 [facility] Comment on above: Order Comment: Speci men Type: BLOOD SPECIMEN Performed By: #### 2 4321-2 ####[facility] LABORATORYCLIA [id number] [place] [address] Chloride [Moles/Vol] 100 mmol/L Normal 97-105 [facility] Comment on above: Order Comment: Speci men Type: BLOOD SPECIMEN Performed By: #### 2 4321-2 ####[facility] LABORATORYCLIA [id number] [place] [address] CO2 [Moles/Vol] 25 mmol/L Normal 22-30 [facility] Comment on above: Order Comment: Speci men Type: BLOOD SPECIMEN Performed By: #### 2 4321-2 ####[facility] LABORATORYCLIA [id number] [place] [address] Creatinine [Mass/Vol] 0.70 mg/dL Low 0.73-1.22 [facility] Comment on above: Order Comment: Speci men Type: BLOOD SPECIMEN Performed By: #### 2 4321-2 ####[facility] LABORATORYCLIA [id number] [place] [address] GFR/1.73 sq M.predicted MDRD (S/P/Bld) [Vol rate/Area] mL/min/{1.73_m2} Normal [facility] Comment on above: Order Comment: Speci men Type: BLOOD SPECIMEN Result Comment: >60e GFR (Estimated GFR) Units of measure: mL/min/1.73 meters squaredeGFR is derived from the reexpressed MDRD Study equation using the following parameters: serum creatinine, age, gender and race. The creatinine assay has been calibrated to be traceable to IDMS. An eGFR <60 mL/min/1.73m2 for >3 months is consistent with chronic kidney disease. Refer to KDOQI guidelines for clinical interpretation. In patients with unstable renal function, e.g. those with acute kidney injury, the eGFR may not accurately reflect actual GFR. Performed By: #### 2 4321-2 ####[facility]ORATORYCLIA [id number] [place] [address] Glucose [Mass/Vol] 201 mg/dL High 74-99 [facility] Comment on above: Order Comment: Speci men Type: BLOOD SPECIMEN Result Comment: The [place] Diabetes Association (ADA) provides guidance for cutoff values for fasting glucose and random glucose. The ADA defines fasting as no caloric intake for at least 8 hours. Fasting plasma glucose results between 100 to 125 mg/dL indicate increased risk for diabetes (prediabetes).Fasting plasma glucose results greater than or equal to 126 mg/dL meet the criteria for diagnosis of diabetes. In the absence of unequivocal hyperglycemia, results should be confirmed by repeat testing. In a patient with classic symptoms of hyperglycemia or hyperglycemic crisis, random plasma glucose results greater than or equal to 200 mg/dL meet the criteria for diagnosis of diabetes.Reference: Standards of Medical Care in Diabetes 2016, [place] [employer]. Diabetes Care. 2016.39(Suppl 1). Performed By: #### 2 4321-2 ####[facility] LABORATORYCLIA [id number] [place] [address] Potassium [Moles/Vol] 4.0 mmol/L Normal 3.7-5.1 [facility] Comment on above: Order Comment: Speci men Type: BLOOD SPECIMEN Performed By: #### 2 4321-2 ####[facility] LABORATORYCLIA [id number] [place] [address] Sodium [Moles/Vol] 133 mmol/L Low 136-144 [facility] Comment on above: Order Comment: Speci men Type: BLOOD SPECIMEN Performed By: #### 2 4321-2 ####[facility] LABORATORYCLIA [id number] [place] [address] Urea nitrogen [Mass/Vol] 8 mg/dL Low 9-24 [facility] Comment on above: Order Comment: Speci men Type: BLOOD SPECIMEN Performed By: #### 2 4321-2 ####[facility] LABORATORYCLIA [id number] [place] [address] CASE MGT INIT ASSESon 2020 CASE MGT INIT ASSES Normal [facility] CBC panel Auto (Bld)on 09-22 Erythrocyte distribution width (RBC) [Ratio] 18.7 % High 11.5-15.0 [facility] Comment on above: Order Comment: Speci men Type: BLOOD SPECIMEN Performed By: #### 5 8410-2 ####[facility] LABORATORYCLIA [id number] [place] [address] Hematocrit (Bld) [Volume fraction] 29.0 % Low 39.0-51.0 [facility] Comment on above: Order Comment: Speci men Type: BLOOD SPECIMEN Performed By: #### 5 8410-2 ####[facility]ORATORYCLIA [id number] [place] [address] Hemoglobin (Bld) [Mass/Vol] 8.8 g/dL Low 13.0-17.0 [facility] Comment on above: Order Comment: Speci men Type: BLOOD SPECIMEN Performed By: #### 5 8410-2 ####[facility]ORATORYCLIA [id number] [place] [address] MCH (RBC) [Entitic mass] 24.0 pg Low 26.0-34.0 [facility] Comment on above: Order Comment: Speci men Type: BLOOD SPECIMEN Performed By: #### 5 8410-2 ####[facility]ORATORYCLIA [id number] [place] [address] MCHC (RBC) [Mass/Vol] 30.3 g/dL Low 30.5-36.0 [facility] Comment on above: Order Comment: Speci men Type: BLOOD SPECIMEN Performed By: #### 5 8410-2 ####[facility]ORATORYCLIA [id number] [place] [address] MCV (RBC) [Entitic vol] 79.2 fL Low 80.0-100.0 [facility] Comment on above: Order Comment: Speci men Type: BLOOD SPECIMEN Performed By: #### 5 8410-2 ####[facility]ORATORYCLIA [id number] [place] [address] Nucleated RBC (Bld) [#/Vol] 10*3/uL Normal <0.01 [facility] Comment on above: Order Comment: Speci men Type: BLOOD SPECIMEN Performed By: #### 5 8410-2 ####[facility]ORATORYCLIA [id number] [place] [address] Platelet mean volume (Bld) [Entitic vol] 9.4 fL Normal 9.0-12.7 [facility] Comment on above: Order Comment: Speci men Type: BLOOD SPECIMEN Performed By: #### 5 8410-2 ####[facility] LABORATORYCLIA [id number] [place] [address] Platelets (Bld) [#/Vol] 276 10*3/uL Normal 150-400 [facility] Comment on above: Order Comment: Speci men Type: BLOOD SPECIMEN Performed By: #### 5 8410-2 ####[facility]ORATORYCLIA [id number] [place] [address] RBC (Bld) [#/Vol] 3.66 10*6/uL Low 4.20-6.00 [facility] Comment on above: Order Comment: Speci men Type: BLOOD SPECIMEN Performed By: #### 5 8410-2 ####[facility] LABORATORYCLIA [id number] [place] [address] WBC (Bld) [#/Vol] 5.67 10*3/uL Normal 3.70-11.00 [facility] Comment on above: Order Comment: Speci men Type: BLOOD SPECIMEN Performed By: #### 5 8410-2 ####[facility]ORYCLIA [id number] [place] [address] Erythrocyte distribution width (RBC) [Ratio] 18.8 % High 11.5-15.0 [facility] Comment on above: Order Comment: Speci men Type: BLOOD SPECIMEN Performed By: #### 5 8410-2 ####[facility]ORATORYCLIA [id number] [place] [address] Hematocrit (Bld) [Volume fraction] 30.9 % Low 39.0-51.0 [facility] Comment on above: Order Comment: Speci men Type: BLOOD SPECIMEN Performed By: #### 5 8410-2 ####[facility]ORATORYCLIA [id number] [place] [address] Hemoglobin (Bld) [Mass/Vol] 9.5 g/dL Low 13.0-17.0 [facility] Comment on above: Order Comment: Speci men Type: BLOOD SPECIMEN Performed By: #### 5 8410-2 ####[facility] LABORATORYCLIA [id number] [place] [address] MCH (RBC) [Entitic mass] 24.1 pg Low 26.0-34.0 [facility] Comment on above: Order Comment: Speci men Type: BLOOD SPECIMEN Performed By: #### 5 8410-2 ####[facility]ORATORYCLIA [id number] [place] [address] MCHC (RBC) [Mass/Vol] 30.7 g/dL Normal 30.5-36.0 [facility] Comment on above: Order Comment: Speci men Type: BLOOD SPECIMEN Performed By: #### 5 8410-2 ####[facility]ORATORYCLIA [id number] [place] [address] MCV (RBC) [Entitic vol] 78.4 fL Low 80.0-100.0 [facility] Comment on above: Order Comment: Speci men Type: BLOOD SPECIMEN Performed By: #### 5 8410-2 ####[facility]ORATORYCLIA [id number] [place] [address] Nucleated RBC (Bld) [#/Vol] 10*3/uL Normal <0.01 [facility] Comment on above: Order Comment: Speci men Type: BLOOD SPECIMEN Performed By: #### 5 8410-2 ####[facility]ORATORYCLIA [id number] [place] [address] Platelet mean volume (Bld) [Entitic vol] 9.5 fL Normal 9.0-12.7 [facility] Comment on above: Order Comment: Speci men Type: BLOOD SPECIMEN Performed By: #### 5 8410-2 ####[facility]ORATORYCLIA [id number] [place] [address] Platelets (Bld) [#/Vol] 278 10*3/uL Normal 150-400 [facility] Comment on above: Order Comment: Speci men Type: BLOOD SPECIMEN Performed By: #### 5 8410-2 ####[facility]ORATORYCLIA [id number] [place] [address] RBC (Bld) [#/Vol] 3.94 10*6/uL Low 4.20-6.00 [facility] Comment on above: Order Comment: Speci men Type: BLOOD SPECIMEN Performed By: #### 5 8410-2 ####[facility]ORATORYCLIA [id number] [place] [address] WBC (Bld) [#/Vol] 5.90 10*3/uL Normal 3.70-11.00 [facility] Comment on above: Order Comment: Speci men Type: BLOOD SPECIMEN Performed By: #### 5 8410-2 ####[facility] LABORATORYCLIA [id number] [place] [address] CONSULTon 09-22-2020 CONSULT Normal [facility] CONSULT PROGon 09-22-2020 CONSULT PROG Normal [facility] NURSING PROGon 09-22-2020 NURSING PROG Normal [facility] NURSING PROG Normal [facility] PT panel Coag (PPP)on 2020 INR Coag (PPP) [Relative time] 1.5 {INR} High 0.9-1.3 [facility] Comment on above: Order Comment: Speci men Type: BLOOD SPECIMEN Result Comment: Aislinn min K Antagonist (VKA) Therapeutic Range: INR 2 to 3 (Target INR of 2.5)Note: For patients treated with VKA drugs, such as warfarin, the [place] [employer] 2012 Guideline recommends a therapeutic INR range of 2 to 3 (target INR of 2.5). This recommendation includes high-risk patients with antiphospholipid syndrome with previous arterial or venous thromboembolism, current-generation mechanical or bioprosthetic aortic heart valve replacement.Note: Patients with mechanical aortic valve replacement and additional risk factors for thromboembolic events (atrial fibrillation, previous thromboembolism, LV dysfunction, hypercoagulable conditions) or an older generation mechanical AVR (i.e., ball in-Cage) or any mechanical MVR should have a INR therapeutic range of 2.5 to 3.5 (target INR of 3).Nan KAPADIA, et al. Chest 2012, 141:7S-47SNishimanil RA, et al. [facility] 2017, 70: 252-289 Performed By: #### 3 4528-0 ####[facility] LABORATORYCLIA [id number] [place] [address] PT Coag (PPP) [Time] 15.7 s High 9.7-13.0 [facility] Comment on above: Order Comment: Speci men Type: BLOOD SPECIMEN Performed By: #### 3 4528-0 ####[facility]ORATORYCLIA [id number] [place] [address] SARS-CoV-2 RNA Resp Ql SCAR+p robeon 09-22-2020 SARS-CoV-2 (COVID-19) RNA SCAR+probe Ql (Resp) COVID 19 RESULT: SARS-CoV-2 (Agent of COVID-19) Not Detected by PCR. This test has been authorized by FDA under an Emergency Use Authorization (EUA) [facility] Comment on above: Performed By: #### 9 4500-6 ####[facility]ORATORYCLIA [id number] [place] [address] TYPE AND SCREENon 09-22-2020 ABO B [facility] Comment on above: Order Comment: Speci men Type: BLOOD SPECIMEN Performed By: #### T SCR ####[facility] BANKCLIA [id number] HISTORICAL AB SCR STATUS Negative [facility] Comment on above: Order Comment: Speci men Type: BLOOD SPECIMEN Performed By: #### T SCR ####[facility] BANKCLIA [id number] Rh Nom (Bld) Positive Normal [facility] Comment on above: Order Comment: Speci men Type: BLOOD SPECIMEN Performed By: #### T SCR ####[facility] BANKCLIA [id number] TYPE AND SCREEN EXPIRATION 09/25/2020 23:59 Normal [facility] Comment on above: Order Comment: Speci men Type: BLOOD SPECIMEN Performed By: #### T SCR ####[facility]LO[facility] BANKCLIA [id number] XR CHEST 1V FRONTALon 2020 XR CHEST 1V FRONTAL Final Report DATE OF EXAM: Sep 22 2020 5:27PM AKX [id number] - XR CHEST 1V FRONTAL / PROCEDURE REASON: Evaluate tube, line or lead position Physician Interpretation EXAM: PORTABLE CHEST X-RAY CLINICAL HISTORY: Evaluate tube, line or lead position TECHNIQUE: AP upright COMPARISON: 05/12/2020 RESULT: Lines/tubes/devices: None visualized. Heart/mediastinum: Borderline cardiac enlargement is unchanged. Sternal wires have been completely removed. Left to right tracheal deviation at the aortic arch level again noted. Lungs/pleura: Lung brown are clear. No lung opacities or pleural effusion. No pneumothorax. Bones/soft tissues: Unremarkable. IMPRESSION: No acute findings in the chest. Status post removal of sternal wires. [employer] Machine Operator: DHARMESH Transcribe Date/Time: Sep 22 2020 5:31P Dictated by : ORION RUANO MD This examination was interpreted and the report reviewed and electronically signed by: ORION RUANO MD on Sep 22 2020 5:34PM EST Normal [facility] Bacteria Bld Culton 09-22-19 21 Bacteria identified Cx Nom (Bld) CULTURE, BLOOD: No growth 5 days Normal [facility] Comment on above: Performed By: #### 6 00-7 ####[facility] LABORATORYCLIA [id number] [place] [address] Bacteria identified Cx Nom (Bld) CULTURE, BLOOD: No growth 5 days Normal [facility] Comment on above: Performed By: #### 6 00-7 ####[facility] LABORATORYCLIA [id number] [place] [address] Bacteria Wnd Culton 09-22-19 21 Bacteria identified Cx Nom (Wound) CULTURE, WOUND: No growth GRAM STAIN: No organisms seen Many Polymorphonuclear leukocytes Normal [facility] Comment on above: Performed By: #### 6 462-6 ####[facility]ATORYCLIA [id number] [place] [address] Basic metabolic 2000 panelon 09-21-2020 Anion gap [Moles/Vol] 9 mmol/L Normal 9-18 [facility] Comment on above: Order Comment: Speci men Type: BLOOD SPECIMEN Performed By: #### 2 4321-2 ####[facility] LABORATORYCLIA [id number] [place] [address] Calcium [Mass/Vol] 9.2 mg/dL Normal 8.5-10.2 [facility] Comment on above: Order Comment: Speci men Type: BLOOD SPECIMEN Performed By: #### 2 4321-2 ####[facility] LABORATORYCLIA [id number] [place] [address] Chloride [Moles/Vol] 98 mmol/L Normal 97-105 [facility] Comment on above: Order Comment: Speci men Type: BLOOD SPECIMEN Performed By: #### 2 4321-2 ####[facility]ORATORYCLIA [id number] [place] [address] CO2 [Moles/Vol] 27 mmol/L Normal 22-30 [facility] Comment on above: Order Comment: Speci men Type: BLOOD SPECIMEN Performed By: #### 2 4321-2 ####[facility]ORYCLIA [id number] [place] [address] Creatinine [Mass/Vol] 0.76 mg/dL Normal 0.73-1.22 [facility] Comment on above: Order Comment: Speci men Type: BLOOD SPECIMEN Performed By: #### 2 4321-2 ####[facility]ATORYCLIA [id number] [place] [address] GFR/1.73 sq M.predicted MDRD (S/P/Bld) [Vol rate/Area] mL/min/{1.73_m2} Normal [facility] Comment on above: Order Comment: [facility] Type: BLOOD SPECIMEN Result Comment: >60e GFR (Estimated GFR) Units of measure: mL/min/1.73 meters squaredeGFR is derived from the reexpressed MDRD Study equation using the following parameters: serum creatinine, age, gender and race. The creatinine assay has been calibrated to be traceable to IDMS. An eGFR <60 mL/min/1.73m2 for >3 months is consistent with chronic kidney disease. Refer to KDOQI guidelines for clinical interpretation. In patients with unstable renal function, e.g. those with acute kidney injury, the eGFR may not accurately reflect actual GFR. Performed By: #### 2 4321-2 ####[facility] LABORATORYCLIA [id number] [place] [address] Glucose [Mass/Vol] 227 mg/dL High 74-99 [facility] Comment on above: Order Comment: [facility] Type: BLOOD SPECIMEN Result Comment: The [place] Diabetes [employer] (ADA) provides guidance for cutoff values for fasting glucose and random glucose. The ADA defines fasting as no caloric intake for at least 8 hours. Fasting plasma glucose results between 100 to 125 mg/dL indicate increased risk for diabetes (prediabetes).Fasting plasma glucose results greater than or equal to 126 mg/dL meet the criteria for diagnosis of diabetes. In the absence of unequivocal hyperglycemia, results should be confirmed by repeat testing. In a patient with classic symptoms of hyperglycemia or hyperglycemic crisis, random plasma glucose results greater than or equal to 200 mg/dL meet the criteria for diagnosis of diabetes.Reference: Standards of Medical Care in Diabetes 2016, [place] [employer]. Diabetes Care. 2016.39(Suppl 1). Performed By: #### 2 4321-2 ####[facility] LABORATORYCLIA [id number] [place] [address] Potassium [Moles/Vol] 3.5 mmol/L Low 3.7-5.1 [facility] Comment on above: Order Comment: Speci [facility] Type: BLOOD SPECIMEN Performed By: #### 2 4321-2 ####[facility] LABORATORYCLIA [id number] [place] [address] Sodium [Moles/Vol] 134 mmol/L Low 136-144 [facility] Comment on above: Order Comment: Speci men Type: BLOOD SPECIMEN Performed By: #### 2 4321-2 ####[facility]ORYCLIA [id number] [place] [address] Urea nitrogen [Mass/Vol] 10 mg/dL Normal 9-24 [facility] Comment on above: Order Comment: Speci men Type: BLOOD SPECIMEN Performed By: #### 2 4321-2 ####[facility]ATORYCLIA [id number] [place] [address] CBC W Auto Differential pane l (Bld)on 09-21-2020 Basophils (Bld) [#/Vol] 10*3/uL Normal <0.11 [facility] Comment on above: Order Comment: Speci men Type: BLOOD SPECIMEN Performed By: #### 5 7021-8 ####[facility]ATORYCLIA [id number] [place] [address] Basophils/100 WBC (Bld) 0.3 % Normal [facility] Comment on above: Order Comment: Speci men Type: BLOOD SPECIMEN Performed By: #### 5 7021-8 ####[facility]ATORYCLIA [id number] [place] [address] Eosinophils (Bld) [#/Vol] 0.09 10*3/uL Normal <0.46 [facility] Comment on above: Order Comment: Speci men Type: BLOOD SPECIMEN Performed By: #### 5 7021-8 ####[facility]ATORYCLIA [id number] [place] [address] Eosinophils/100 WBC (Bld) 1.3 % Normal [facility] Comment on above: Order Comment: Speci men Type: BLOOD SPECIMEN Performed By: #### 5 7021-8 ####[facility]ATORYCLIA [id number] [place] [address] Erythrocyte distribution width (RBC) [Ratio] 18.9 % High 11.5-15.0 [facility] Comment on above: Order Comment: Speci men Type: BLOOD SPECIMEN Performed By: #### 5 7021-8 ####[facility]ATORYCLIA [id number] [place] [address] Hematocrit (Bld) [Volume fraction] 33.4 % Low 39.0-51.0 [facility] Comment on above: Order Comment: Speci men Type: BLOOD SPECIMEN Performed By: #### 5 7021-8 ####[facility]ORYCLIA [id number] [place] [address] Hemoglobin (Bld) [Mass/Vol] 10.1 g/dL Low 13.0-17.0 [facility] Comment on above: Order Comment: Speci men Type: BLOOD SPECIMEN Performed By: #### 5 7021-8 ####[facility]ORYCLIA [id number] [place] [address] IMMATURE GRAN % 0.3 % Normal [facility] Comment on above: Order Comment: Speci men Type: BLOOD SPECIMEN Performed By: #### 5 7021-8 ####[facility]ORYCLIA [id number] [place] [address] IMMATURE GRAN ABS <0.03 Normal <0.10 [facility] Comment on above: Order Comment: Speci men Type: BLOOD SPECIMEN Performed By: #### 5 7021-8 ####[facility]ORYCLIA [id number] [place] [address] Lymphocytes (Bld) [#/Vol] 2.06 10*3/uL Normal 1.00-4.00 [facility] Comment on above: Order Comment: Speci men Type: BLOOD SPECIMEN Performed By: #### 5 7021-8 ####[facility]ORYCLIA [id number] [place] [address] Lymphocytes/100 WBC (Bld) 29.3 % Normal [facility] Comment on above: Order Comment: Speci men Type: BLOOD SPECIMEN Performed By: #### 5 7021-8 ####[facility]ORYCLIA [id number] [place] [address] MCH (RBC) [Entitic mass] 23.8 pg Low 26.0-34.0 [facility] Comment on above: Order Comment: Speci men Type: BLOOD SPECIMEN Performed By: #### 5 7021-8 ####[facility] LABORATORYCLIA [id number] [place] [address] MCHC (RBC) [Mass/Vol] 30.2 g/dL Low 30.5-36.0 [facility] Comment on above: Order Comment: Speci men Type: BLOOD SPECIMEN Performed By: #### 5 7021-8 ####[facility] LABORATORYCLIA [id number] [place] [address] MCV (RBC) [Entitic vol] 78.6 fL Low 80.0-100.0 [facility] Comment on above: Order Comment: Speci men Type: BLOOD SPECIMEN Performed By: #### 5 7021-8 ####[facility] LABORATORYCLIA [id number] [place] [address] Monocytes (Bld) [#/Vol] 0.77 10*3/uL Normal <0.87 [facility] Comment on above: Order Comment: Speci men Type: BLOOD SPECIMEN Performed By: #### 5 7021-8 ####[facility]ORYCLIA [id number] [place] [address] Monocytes/100 WBC (Bld) 11.0 % Normal [facility] Comment on above: Order Comment: Speci men Type: BLOOD SPECIMEN Performed By: #### 5 7021-8 ####[facility]ORYCLIA [id number] [place] [address] Neutrophils (Bld) [#/Vol] 4.07 10*3/uL Normal 1.45-7.50 [facility] Comment on above: Order Comment: Speci men Type: BLOOD SPECIMEN Performed By: #### 5 7021-8 ####[facility]ORYCLIA [id number] [place] [address] Neutrophils/100 WBC (Bld) 57.8 % Normal [facility] Comment on above: Order Comment: Speci men Type: BLOOD SPECIMEN Performed By: #### 5 7021-8 ####[facility]ORY[facility]IA [id number] [place] [address] Platelet mean volume (Bld) [Entitic vol] 9.5 fL Normal 9.0-12.7 [facility] Comment on above: Order Comment: Speci men Type: BLOOD SPECIMEN Performed By: #### 5 7021-8 ####[facility]ATORYCLIA [id number] [place] [address] Platelets (Bld) [#/Vol] 306 10*3/uL Normal 150-400 [facility] Comment on above: Order Comment: Speci men Type: BLOOD SPECIMEN Performed By: #### 5 7021-8 ####[facility]ATORYCLIA [id number] [place] [address] RBC (Bld) [#/Vol] 4.25 10*6/uL Normal 4.20-6.00 [facility] Comment on above: Order Comment: Speci men Type: BLOOD SPECIMEN Performed By: #### 5 7021-8 ####[facility]ATORYCLIA [id number] [place] [address] WBC (Bld) [#/Vol] 7.03 10*3/uL Normal 3.70-11.00 [facility] Comment on above: Order Comment: Speci men Type: BLOOD SPECIMEN Performed By: #### 5 7021-8 ####[facility]ATORYCLIA [id number] [place] [address] CONSULT PROGon 09-21-2020 CONSULT PROG Normal [facility] HOSPon 09-21-2020 HOSP Normal [facility] PT panel Coag (PPP)on 2020 INR Coag (PPP) [Relative time] 1.8 {INR} High 0.9-1.3 [facility] Comment on above: Order Comment: Speci men Type: BLOOD SPECIMEN Result Comment: Aislinn min K Antagonist (VKA) Therapeutic Range: INR 2 to 3 (Target INR of 2.5)Note: For patients treated with VKA drugs, such as warfarin, the [employer] 2012 Guideline recommends a therapeutic INR range of 2 to 3 (target INR of 2.5). This recommendation includes high-risk patients with antiphospholipid syndrome with previous arterial or venous thromboembolism, current-generation mechanical or bioprosthetic aortic heart valve replacement.Note: Patients with mechanical aortic valve replacement and additional risk factors for thromboembolic events (atrial fibrillation, previous thromboembolism, LV dysfunction, hypercoagulable conditions) or an older generation mechanical AVR (i.e., ball in-Cage) or any mechanical MVR should have a INR therapeutic range of 2.5 to 3.5 (target INR of 3).Nan GH, et al. Chest 2012, 141:7S-47SNishellis RA, et al. [facility] 2017, 70: 252-289 Performed By: #### 3 4528-0 ####[facility]ATORYCLIA [id number] [place] [address] PT Coag (PPP) [Time] 17.9 s High 9.7-13.0 [facility] Comment on above: Order Comment: Speci men Type: BLOOD SPECIMEN Performed By: #### 3 4528-0 ####[facility]ORATORYCLIA [id number] [place] [address] XR CHEST 2V FRONTAL/LATon XR CHEST 2V FRONTAL/LAT Final Report DATE OF EXAM: Jun 23 2020 1:50PM [id number] 5291 - XR CHEST 2V FRONTAL/LAT / PROCEDURE REASON: multiple diagnoses Physician Interpretation EXAMINATION: CHEST RADIOGRAPH (2 VIEW FRONTAL & LATERAL) CLINICAL HISTORY: S/P CABG x 2 S/P AVR (aortic valve replacement) MQ: XC2_6 EXAM DATE/TIME: 06/23/2020 1:50 PM COMPARISON: 05/12/2020 RESULT: Lines, tubes, and devices: None. Lungs and pleura: Trace right pleural fluid versus pleural thickening improved from prior. No pneumothorax. Improvement of prior right lung base opacity. Resolution left pleural effusion. No new consolidation. Cardiomediastinal silhouette: Stable prominence Bones and soft tissues: Status post median sternotomy with normally aligned sternal wires. Degenerative changes thoracic spine. IMPRESSION: Improvement of lung base opacities/fluid, with trace right pleural effusion versus thickening Pure Pak Machine Operator: DHARMESH Transcribe Date/Time: Jun 23 2020 3:03P Dictated by : IAM LEHMAN MD This examination was interpreted and the report reviewed and electronically signed by: IAM LEHMAN MD on Jun 23 2020 3:05PM EST Normal [place] [email or web address] [facility] XR CHEST 1V FRONTALon 2019 XR CHEST 1V FRONTAL Final Report DATE OF EXAM: May 12 2020 8:48AM AKX 5290 - XR CHEST 1V FRONTAL / PROCEDURE REASON: Post-operative / post-procedure assessment, asymptomatic Physician Interpretation EXAMINATION: CHEST RADIOGRAPH (SINGLE VIEW AP OR PA) CLINICAL HISTORY: Post-operative / post-procedure assessment, asymptomatic MQ: XC1_5 Comparison: 05/09/2020 RESULT: Lines, tubes, and devices: nuclear monitoring technician leads. Lungs and pleura: Lungs appear grossly clear. Cardiomediastinal silhouette: Cardiomegaly. Stable. Other: Median sternotomy wires and plates. IMPRESSION: Stable appearance of the chest with cardiomegaly. Pure Pak Machine Operator: DHARMESH Transcribe Date/Time: May 12 2020 10:48A Dictated by : XOCHITL ROSSI MD This examination was interpreted and the report reviewed and electronically signed by: XOCHITL ROSSI MD on May 12 2020 10:50AM EST Normal [place] [email or web address] [facility] XR CHEST 2V FRONTAL/LATon XR CHEST 2V FRONTAL/LAT Final Report DATE OF EXAM: May 11 2020 7:44AM AKX 5291 - XR CHEST 2V FRONTAL/LAT / PROCEDURE REASON: Post-operative / post-procedure assessment, asymptomatic Physician Interpretation EXAMINATION: CHEST RADIOGRAPH (2 VIEW FRONTAL & LATERAL) CLINICAL HISTORY: Post-operative / post-procedure assessment, asymptomatic MQ: XC2_6 EXAM DATE/TIME: 05/11/2020 7:44 AM COMPARISON: 05/09/2020 RESULT: Lines, tubes, and devices: None. Lungs and pleura: There is a small right pleural effusion with right basilar airspace consolidation/atelecta sis, new from the prior study. No sizable left effusion. No pneumothorax. Mild pulmonary vascular congestion. Cardiomediastinal silhouette: Stable cardiomediastinal silhouette with sternal wires and plates. Prosthetic cardiac valve. Bones and soft tissues: No additional findings. IMPRESSION: Small right pleural effusion with right basilar airspace consolidation/atelecta sis, new from the prior study. Mild pulmonary vascular congestion. Pure Pak Machine Operator: [facility] Transcribe Date/Time: May 11 2020 8:03A Dictated by : ANNE CAMPOS MD This examination was interpreted and the report reviewed and electronically signed by: ANNE CAMPOS MD on May 11 2020 8:06AM EST Normal [facility] XR CHEST 1V FRONTALon 2019 XR CHEST 1V FRONTAL Final Report DATE OF EXAM: May 09 2020 5:38AM [id number] 5290 - XR CHEST 1V FRONTAL / PROCEDURE REASON: Post-operative / post-procedure assessment, asymptomatic Physician Interpretation EXAMINATION: XR CHEST 1V FRONTAL EXAM DATE/TIME: 05/09/2020 5:38 AM CLINICAL HISTORY: Post-operative / post-procedure assessment, asymptomatic COMPARISON: 05/08/2020 chest x-ray RESULT: Lines, tubes, and devices: Interval removal of the thoracostomy tubes. Reidentified median sternotomy wires/plates. Overlying EKG leads. Lungs and pleura: Mild haziness of the lung brown, less than before. No visible dense focal airspace consolidation. No visible sizable pleural effusion. No visible significant pneumothorax. Cardiomediastinal silhouette: Stable. Other: Degenerative spine changes. IMPRESSION: Interval removal of the thoracostomy tubes. Mild haziness of the lung brown, less than before. Pure Pak Machine Operator: [facility] Transcribe Date/Time: May 09 2020 6:47A Dictated by : JOHANA SERRANO MD This examination was interpreted and the report reviewed and electronically signed by: JOHANA SERRANO MD on May 09 2020 6:49AM EST Normal [facility] XR CHEST 1V FRONTALon 2019 XR CHEST 1V FRONTAL Final Report DATE OF EXAM: May 08 2020 9:32AM [id number] 5290 - XR CHEST 1V FRONTAL / PROCEDURE REASON: Post-operative / post-procedure assessment, asymptomatic Physician Interpretation EXAMINATION: CHEST RADIOGRAPH (SINGLE VIEW AP OR PA) CLINICAL HISTORY: Post-operative / post-procedure assessment, asymptomatic MQ: XC1_5 Comparison: 05/07/2020 RESULT: Lines, tubes, and devices: Bilateral chest tubes paralleling the hemidiaphragms. Overlying court monitor leads. Right-sided internal jugular catheter has been removed. Lungs and pleura: Patchy areas of opacity noted in both lungs. Slightly more prominent than on prior study. Question whether this represents atelectasis or some degree of focal edema. Pneumonia is felt less likely. No pneumothorax. Cardiomediastinal silhouette: Cardiomegaly. Other: None. IMPRESSION: Status post removal right internal jugular central line. No pneumothorax. Vague densities noted in both lungs question whether these represent areas of atelectasis versus focal edema. Pneumonia is felt less likely. Pure Pak Machine Operator: DHARMESH Transcribe Date/Time: May 08 2020 9:33A Dictated by : XOCHITL ROSSI MD This examination was interpreted and the report reviewed and electronically signed by: XOCHITL ROSSI MD on May 08 2020 9:38AM EST Normal [employer] [facility] XR CHEST 1V FRONTALon 2019 XR CHEST 1V FRONTAL Final Report DATE OF EXAM: May 07 2020 5:56AM [id number] 5290 - XR CHEST 1V FRONTAL / PROCEDURE REASON: Post-operative / post-procedure assessment, asymptomatic Physician Interpretation EXAMINATION: CHEST RADIOGRAPH (SINGLE VIEW AP OR PA) CLINICAL HISTORY: Post-operative / post-procedure assessment, asymptomatic MQ: XC1_5 Comparison: Daily prior chest radiographs. RESULT: Limitations: Apical lordotic patient position and underpenetration. Lines, tubes, and devices: Multiple monitoring wires overlie the chest. A right internal jugular central venous catheter terminates in profile with the cavoatrial junction. A right-sided thoracostomy tube parallels the hemidiaphragm. A left-sided thoracostomy tube is seen overlying the left lower lung. There is radiopaque tubing overlying the central thoracoabdominal junction possibly related to the above-described thoracostomy tubes and/or the presence of a mediastinal drain. Lungs and pleura: Right basilar opacity. No measurable pneumothorax. Cardiomediastinal silhouette: Mild/moderate prominent cardiac silhouette. Other: Postoperative changes of median sternotomy with cerclage wires and stabilization plates.. IMPRESSION: Underpenetrated chest radiograph obtained in apical lordotic patient position. Mild/moderate prominent cardiac silhouette accentuated by portable frontal technique. Right basilar atelectasis. Life-support equipment as noted. Pure Pak Machine Operator: DHARMESH Transcribe Date/Time: May 07 2020 7:12A Dictated by : ÁLVARO MORATAYA MD This examination was interpreted and the report reviewed and electronically signed by: ÁLVARO MORATAYA MD on May 07 2020 7:17AM EST Normal [facility] XR CHEST 1V FRONTALon 2019 XR CHEST 1V FRONTAL Final Report DATE OF EXAM: May 06 2020 7:46AM AKX 5290 - XR CHEST 1V FRONTAL / PROCEDURE REASON: Post-operative / post-procedure assessment, asymptomatic Physician Interpretation EXAMINATION: CHEST RADIOGRAPH (SINGLE VIEW AP OR PA) CLINICAL HISTORY: Post-operative / post-procedure assessment, asymptomatic MQ: XC1_5 Comparison: 05/06/2020 at 07 40 RESULT: Lines, tubes, and devices: Right internal jugular central line with tip near the distal superior vena cava. Right-sided chest tube paralleling the right hemidiaphragm. Probable mediastinal drain to the right of midline. Left-sided chest tube paralleling the left hemidiaphragm. Overlying court monitor leads. Intact median sternotomy wires and plates. Lungs and pleura: Trace left apical pneumothorax. No right-sided pneumothorax. Trace pleural effusions. Cardiomediastinal silhouette: Mild cardiomegaly. Other: None. IMPRESSION: Trace left apical pneumothorax. Trace pleural effusions. Stable mild cardiomegaly. Otherwise stable findings. Pure Pak Machine Operator: [facility] Transcribe Date/Time: May 06 2020 7:53A Dictated by : XOCHITL ROSSI MD This examination was interpreted and the report reviewed and electronically signed by: XOCHITL ROSSI MD on May 06 2020 7:55AM EST Normal [facility] XR CHEST 1V FRONTALon 2019 XR CHEST 1V FRONTAL Final Report DATE OF EXAM: May 05 2020 1:21PM AKX 5290 - XR CHEST 1V FRONTAL / PROCEDURE REASON: Post-operative / post-procedure assessment, asymptomatic Physician Interpretation EXAMINATION: CHEST RADIOGRAPH (SINGLE VIEW AP OR PA) CLINICAL HISTORY: Post-operative / post-procedure assessment, asymptomatic MQ: XC1_5 Comparison: Previous studies with the most recent performed one day ago RESULT: Lines, tubes, and devices: Preexisting lines and tubes remain in unaltered position. Cardiac leads again overlie the thorax. Lungs and pleura: Patchy regions of subsegmental atelectasis are present. Atelectasis is noted at the left lung base. There may be a tiny left effusion. There is no pneumothorax or large pneumonia. Cardiomediastinal silhouette: Normal cardiomediastinal silhouette. Other: Status post median sternotomy. IMPRESSION: No significant change. Pure Pak Machine Operator: [facility] Transcribe Date/Time: May 05 2020 2:47P Dictated by : JEANNA HUERTA MD This examination was interpreted and the report reviewed and electronically signed by: JEANNA HUERTA MD on May 05 2020 2:47PM EST Normal [place] [employer] [facility] XR CHEST 1V FRONTALon 2019 XR CHEST 1V FRONTAL Final Report DATE OF EXAM: May 04 2020 5:59AM AKX 5290 - XR CHEST 1V FRONTAL / PROCEDURE REASON: Post-operative / post-procedure assessment, asymptomatic Physician Interpretation EXAMINATION: CHEST RADIOGRAPH (SINGLE VIEW AP OR PA) CLINICAL HISTORY: Post-operative / post-procedure assessment, asymptomatic MQ: XC1_5 Comparison: 05/03/2020 RESULT: Lines, tubes, and devices: No change in position of the right IJ line catheter tip at the distal SVC level. No measurable pneumothorax. Multiple overlying EKG leads. Sternotomy wires. Lungs and pleura: Mild degree of bibasilar parenchymal changes greater left side, unchanged. Upper lung brown remain clear Cardiomediastinal silhouette: Moderately enlarged Other: . IMPRESSION: No acute radiographic abnormality. Pure Pak Machine Operator: [facility] Transcribe Date/Time: May 04 2020 7:04A Dictated by : HEATHER PARKER MD This examination was interpreted and the report reviewed and electronically signed by: HEATHER PARKER MD on May 04 2020 7:06AM EST Normal [place] [facility] XR CHEST 1V FRONTALon 2019 XR CHEST 1V FRONTAL Final Report DATE OF EXAM: May 03 2020 5:57AM AKX 5290 - XR CHEST 1V FRONTAL / PROCEDURE REASON: Post-operative / post-procedure assessment, asymptomatic Physician Interpretation EXAM TITLE: AP/PA CHEST X RAY COMPARISON: 05/02/2020. CLINICAL HISTORY: Post-operative / post-procedure assessment, asymptomatic ENCOUNTER: Not applicable MQ: XC1_5 RESULT: Lines, tubes, and devices: Interval removal of endotracheal and enteric tubes. Again noted is the radiopaque marker of intra-aortic balloon pump, overlying the distended course of the descending thoracic aorta at the level of the T8 vertebral body, unchanged in position. Again demonstrated is right internal jugular central venous catheter with tip overlying the inferior one third of the SVC, unchanged. Little interval change regarding bilateral thoracostomy tubes are mediastinal drain. Lungs and pleura: Low lung volumes with bibasilar atelectasis versus consolidation, worse on the left, since previous examination. No discrete pneumothorax. Likely small left pleural effusion. No discrete right-sided effusion. Cardiomediastinal silhouette: Moderate cardiomegaly, unchanged. Status post median sternotomy, wires appear to be intact. Other: Osseous structures and soft tissues grossly intact. IMPRESSION: Interval removal of endotracheal and enteric tubes. Otherwise, support lines and catheters are essentially unchanged in position. Low lung volumes with bibasilar atelectasis versus consolidation, worse on the left, since previous examination. No discrete pneumothorax. Likely small left pleural effusion. Moderate cardiomegaly, unchanged. Pure Pak Machine Operator: DHARMESH Transcribe Date/Time: May 03 2020 7:17A Dictated by : OVIDIO HENDERSON MD This examination was interpreted and the report reviewed and electronically signed by: OVIDIO HENDERSON MD on May 03 2020 7:19AM EST Normal [place] [facility] XR CHEST 1V FRONTALon 2019 XR CHEST 1V FRONTAL Final Report DATE OF EXAM: May 02 2020 5:25AM [id number] 5290 - XR CHEST 1V FRONTAL / PROCEDURE REASON: Post-operative / post-procedure assessment, asymptomatic Physician Interpretation EXAMINATION: CHEST RADIOGRAPH (SINGLE VIEW AP OR PA) CLINICAL HISTORY: Post-operative / post-procedure assessment, asymptomatic MQ: XC1_5 Comparison: Previous studies with the most recent performed earlier today RESULT: Lines, tubes, and devices: Interval removal of a mediastinal drain and right thoracostomy tube. Other lines and tubes remain in unaltered position. Lungs and pleura: The left hemidiaphragm remains obscured, likely as a result of an effusion and adjacent atelectasis. There is new left parahilar infiltrate. No pneumothorax. Cardiomediastinal silhouette: Stable enlargement. Other: Status post median sternotomy. IMPRESSION: 1. Interval removal of the right thoracostomy tube and mediastinal drain. 2. Presumed left pleural effusion with basilar atelectasis. 3. New mild left parahilar infiltrate. Pure Pak Machine Operator[facility] Transcribe Date/Time: May 02 2020 6:44A Dictated by : JEANNA HUERTA MD This examination was interpreted and the report reviewed and electronically signed by: JEANNA HUERTA MD on May 02 2020 6:46AM EST Normal [place] [facility] XR CHEST 1V FRONTAL Final Report DATE OF EXAM: May 02 2020 2:12AM [id number] 5290 - XR CHEST 1V FRONTAL / PROCEDURE REASON: Evaluate tube, line or lead position Physician Interpretation EXAMINATION: CHEST RADIOGRAPH (SINGLE VIEW AP OR PA) CLINICAL HISTORY: Evaluate tube, line or lead position MQ: XC1_5 Comparison: 05/01/2020. RESULT: Lines, tubes, and devices: Enteric tube appropriately positioned within the stomach. Endotracheal tube appropriately positioned above level of alena. There is a right internal jugular line positioned over the superior vena cava. There is a new line emanating from the right inferior aspect of the radiograph with its tip projecting in the region of the right atrium, correlate whether this is external to the patient or whether a central line was placed. There are bilateral chest tubes. Lungs and pleura: Left retrocardiac opacity. Cardiomediastinal silhouette: Heart is enlarged. Other: Median sternotomy. IMPRESSION: Lines and tubes as described. Left retrocardiac opacity could represent pleural effusion and/or atelectasis. Pure Pak Machine Operator: [facility] Transcribe Date/Time: May 02 2020 2:47A Dictated by : BYRON ARMANDO MD This examination was interpreted and the report reviewed and electronically signed by: BYRON ARMANDO MD on May 02 2020 2:52AM EST Normal [facility] XR CHEST 1V FRONTAL Final Report DATE OF EXAM: May 01 2020 11:04PM [id number] 5290 - XR CHEST 1V FRONTAL / PROCEDURE REASON: Evaluate tube, line or lead position Physician Interpretation EXAMINATION: CHEST RADIOGRAPH (SINGLE VIEW AP OR PA) CLINICAL HISTORY: Evaluate tube, line or lead position, Post-operative / post-procedure assessment, asymptomatic MQ: XC1_5 Comparison: 04/27/2020, 0722 hours RESULT: Lines, tubes, and devices: The projection is lordotic, and the position of the tip of the endotracheal tube relative to the alena is not well visualized. In this projection, the tip of the endotracheal tube is at the T3-4 level. The tip of the right internal jugular central venous catheter is at a level consistent with a caudal aspect of the superior vena cava The nasogastric tube traverses the chest into the stomach caudal to the diaphragmatic hiatus Bilateral chest tubes Lungs and pleura: Limited inspiration with vascular crowding. No pleural effusion. No pneumothorax Cardiomediastinal silhouette: Previous median sternotomy. The cardiac silhouette appears prominent in size which in part is secondary to the limited inspiration and lordotic projection Pure Pak Machine Operator: DHARMESH Transcribe Date/Time: May 01 2020 11:23P Dictated by : CHAPARRITA MORALES MD This examination was interpreted and the report reviewed and electronically signed by: CHAPARRITA MORALES MD on May 01 2020 11:26PM EST Normal [facility] US ABD RIGHT UPPER QUADRANTo n 04-29-2020 US ABD RIGHT UPPER QUADRANT Final Report DATE OF EXAM: Apr 29 2020 7:58AM [id number] - US ABD RIGHT UPPER QUADRANT / PROCEDURE REASON: Cholelithiasis Physician Interpretation EXAMINATION: RIGHT UPPER QUADRANT ULTRASOUND CLINICAL HISTORY: Cholelithiasis. TECHNIQUE: Sonography of the right upper quadrant was performed. Images were obtained and stored in a permanent archive. MQ: URUQ_2 COMPARISON: None. RESULT: Pancreas: Normal sonographic appearance. Portions obscured: Body and tail. Liver: Echotexture: Normal, homogeneous. Echogenicity: Normal Surface contour: Smooth Lesions: None. Biliary: No intrahepatic biliary duct dilation. CBD: 0.6 cm at the hilum. Gallbladder: Normal caliber -Contents: Small stones and sludge. -Wall: Normal -Other: No pericholecystic fluid. Negative sonographic Angel sign. Right Kidney: No hydronephrosis. Ascites: None. IMPRESSION: Cholelithiasis without sonographic findings to suggest acute cholecystitis. No suspicious focal hepatic lesion or biliary ductal dilation. Pure Pak Machine Operator: DHARMESH Transcribe Date/Time: Apr 29 2020 8:19A Dictated by : OVIDIO HENDERSON MD This examination was interpreted and the report reviewed and electronically signed by: OVIDIO HENDRESON MD on Apr 29 2020 8:22AM EST Normal [facility] US ANKLE BRACHIAL INDICESon 04-28-2020 US ANKLE BRACHIAL INDICES Final Report DATE OF EXAM: Apr 28 2020 12:00AM [id number] - US ANKLE BRACHIAL INDICES / PROCEDURE REASON: s/p bypass Physician Interpretation Non-Invasive Vascular Laboratory [facility] Lower Extremity Arterial Physiology Study Bilateral/Complete Date of service/time: 04/28/2020 1:21:00 PM Name: MR. SKY CORONEL Date of : 1950 Age: 69 years Gender: M Medical History Tobacco: Former Coronary disease: Yes Myocardial infarction: Yes CABG: Yes PAD: Yes Hypertension: Yes Diabetes: Yes Clinical Indication Preoperative evaluation. TECHNIQUE -------- An arterial physiological examination was performed, including measurement of blood pressures using continuous wave Doppler and recording of plethysmographic with or without Doppler waveforms at the below-mentioned limb segments. FINDINGS -------- RIGHT SIDE AT REST Right Pressures Brachial: 108 mmHg Ankle dorsalis pedis: 91 mmHg HERNESTO: 0.81 Ankle posterior tibial: 104 mmHg HERNESTO: 0.93 Right PVR Waveforms Ankle: Mildly dampened. LEFT SIDE AT REST Left Pressures Brachial: 112 mmHg Ankle dorsalis pedis: 163 mmHg HERNESTO: 1.46 Ankle posterior tibial: 159 mmHg HERNESTO: 1.42 Left PVR Waveforms Ankle: Mildly dampened. IMPRESSION RIGHT SIDE Resting right ankle brachial index: 0.93 Borderline abnormal ankle brachial index at rest. Right ankle: Borderline abnormal at rest. LEFT SIDE Resting left ankle brachial index: 1.46 Normal ankle brachial index at rest in the left leg. Left ankle: Normal at rest. Technologist: Mariam Ashby Ordering physician: BRANDO DOZIER Interpreting physician: Justice Beavers MD Final RP Pure Pak Machine Operator: [facility] Transcribe Date/Time: Apr 28 2020 1:21P Dictated by : JUSTICE BEAVERS MD This examination was interpreted and the report reviewed and electronically signed by: JUSTICE BEAVERS MD on Apr 28 2020 3:52PM EST Normal [facility] US CAROTID BILon 04-28-2020 US CAROTID JING Final Report DATE OF EXAM: Apr 28 2020 3:31PM [id number] [id number] - US CAROTID JING / PROCEDURE REASON: pre op Physician Interpretation Non-Invasive Vascular Laboratory [facility] Carotid Duplex Bilateral/Complete Date of service/time: 04/28/2020 1:35:41 PM Name: MR. SKY CORONEL Date of : 1950 Age: 69 years Gender: M Medical History Tobacco: Former Coronary disease: Yes Myocardial infarction: Yes PAD: Yes Hypertension: Yes Diabetes: Yes Clinical Indication Pre op clearance. TECHNIQUE -------- A carotid duplex ultrasound examination was performed, including grayscale imaging and color Doppler and spectral Doppler examination of the below mentioned arteries. FINDINGS -------- RIGHT SIDE Common carotid artery: Proximal: PSV: 85 cm/s. EDV: 20 cm/s. Distal: PSV: 82 cm/s. EDV: 17 cm/s. Internal carotid artery: Origin: PSV: 317 cm/s. EDV: 76 cm/s. Proximal: PSV: 301 cm/s. EDV: 80 cm/s. Mid: PSV: 67 cm/s. EDV: 9 cm/s. Distal: PSV: 81 cm/s. EDV: 21 cm/s. Severe heterogeneous plaque at origin. ICA/CCA Ratio: 3.9 External carotid artery: Proximal: PSV: 202 cm/s. EDV: 14 cm/s. Mild heterogeneous plaque at origin. Vertebral artery: Mid: PSV: 33 cm/s. EDV: 6 cm/s. LEFT SIDE Common carotid artery: Proximal: PSV: 135 cm/s. EDV: 26 cm/s. Distal: PSV: 95 cm/s. EDV: 26 cm/s. Internal carotid artery: Origin: PSV: 65 cm/s. EDV: 17 cm/s. Proximal: PSV: 88 cm/s. EDV: 20 cm/s. Mid: PSV: 123 cm/s. EDV: 27 cm/s. Distal: PSV: 111 cm/s. EDV: 27 cm/s. Moderate heterogeneous shadowing plaque at origin. ICA/CCA Ratio: 1.3 External carotid artery: Proximal: PSV: 119 cm/s. EDV: 12 cm/s. Vertebral artery: Mid: PSV: 55 cm/s. EDV: 14 cm/s. IMPRESSION RIGHT SIDE Internal carotid artery: 60-79% stenosis. External carotid artery: Elevated velocities and plaque noted. Vertebral artery: Patent and antegrade flow noted. LEFT SIDE Internal carotid artery: 40-59% stenosis. Vertebral artery: Patent and antegrade flow noted. Technologist: Rimma Cueto RVT Ordering physician: BRANDO DOZIER Interpreting physician: Justice Beavers MD Final RP Pure Pak Machine Operator: IONA Transcribe Date/Time: Apr 28 2020 1:35P Dictated by : JUSTICE BEAVERS MD This examination was interpreted and the report reviewed and electronically signed by: JUSTICE BEAVERS MD on Apr 28 2020 3:56PM EST Normal [facility] US VEIN MAPPING LOWER BILon 04-28-2020 US VEIN MAPPING LOWER JING Final Report DATE OF EXAM: Apr 28 2020 3:15PM [facility] 1081 - US VEIN MAPPING LOWER JING / PROCEDURE REASON: PCI or CABG Physician Interpretation EXAM TITLE: BILATERAL COLOR-FLOW DUPLEX ULTRASOUND OF THE EACH LOWER EXTREMITY FOR VEIN MAPPING DATE: April 28, 2012 2:34 PM COMPARISON: None. CLINICAL INDICATION/HISTORY: The patient is a 69-year-old male who is a candidate for vein harvesting for bypass grafting. The patient already has had both greater saphenous veins are distended. TECHNIQUE: Color-flow duplex ultrasound interrogated the deep and superficial venous system of the EACH lower extremity. FINDINGS: RIGHT LOWER EXTREMITY: The deep venous system is patent and shows normal compressibility, respiratory phasicity, and augmentation with squeezing the calf. There is no evidence of superficial thrombophlebitis. The lesser saphenous vein is patent throughout its length. It measures 1 mm in the upper calf, 1 mm in the mid calf, and 1 mm in the lower calf. LEFT LOWER EXTREMITY: The deep venous system is patent and shows normal compressibility, respiratory phasicity, and augmentation with squeezing the calf. There is no evidence of superficial thrombophlebitis. The lesser saphenous vein is patent throughout its length. It measures 0.9 mm in the upper calf, 0.8 mm in the mid calf, and 0.7 mm in the lower calf. IMPRESSION: Venous diameters and depths are provided in the worksheet. Each greater saphenous vein is surgically absent. There is no evidence of deep venous thrombosis. There is no evidence of superficial thrombophlebitis. Pure Pak Machine Operator: PSCB Transcribe Date/Time: Apr 29 2020 7:23A Dictated by : ANTOINE ALFREDO MD This examination was interpreted and the report reviewed and electronically signed by: ANTOINE ALFREDO MD on Apr 29 2020 7:24AM EST Normal [facility] CT CHEST WO IVCONon 04-27-20 CT CHEST WO IVCON Final Report DATE OF EXAM: Apr 27 2020 3:01PM [facility] 0541 - CT CHEST WO IVCON / PROCEDURE REASON: Prior revascularization (either PTCA or CABG) Physician Interpretation EXAMINATION: CHEST CT WITHOUT CONTRAST CLINICAL HISTORY: Prior revascularization (either PTCA or CABG) Technique: Spiral CT acquisition of the chest from the thoracic inlet to the upper abdomen without contrast. MQ: CTCWO_6 CT Dose-Length Product: [address] Dose Reduction Employed: Iterative recon and mAs-kVp adjusted using patient size-age Comparison: 05/21/2009 RESULT: Limitations: None. Lines, tubes, and devices: None. Lung parenchyma and airways: There are multiple bilateral pulmonary nodules which measure 6 mm or less on the following images of series 3. Right lun, 72, 76, 85, 95, 102, 112 Left lun Almost all of these are stable since the previous examination indicating benign lesions. There is a right-sided nodule (3:76) measuring 0.5 cm which is not apparent on the previous examination. However, this has a triangular shape and is oriented along the interlobar fissure. This is consistent with an intrapulmonary lymph node. There is mild scattered interstitial reticulation suggesting areas of interstitial fibrosis without focal infiltrate or consolidation. There is no definite endobronchial lesion. Pleural space: There is a trace left pleural effusion. Lower neck, lymph nodes, and mediastinum: The imaged thyroid gland is normal. No lymphadenopathy in the supraclavicular, axillary, mediastinal, or hilar regions. Heart, pericardium, and thoracic vessels: There is extensive coronary arterial atherosclerotic calcification. There is mild mural calcification at the root of the aorta without significant aortic calcification otherwise. The ascending thoracic aorta exhibits a normal caliber measuring up to 3.4 cm. There is no significant dilatation of the main pulmonary artery. The heart is not significantly enlarged. Bones and soft tissues: There are thoracic spinal changes of degenerative disc disease and diffuse idiopathic skeletal hyperostosis. Upper abdomen: There is some high attenuation material layering dependently within the gallbladder suggesting stones or sludge. Sod Farmer (topogram) images: No additional findings. IMPRESSION: There are multiple small bilateral pulmonary nodules. Almost all of these were present in 2008 indicating that they are benign. A new nodule is noted along the minor fissure on the right and is probably an intrapulmonary lymph node. Coronary artery disease with slight calcification at the root of the aorta but no aortic aneurysm. Trace left pleural effusion. Possible gallstones. Ultrasound could be considered for further assessment. Pure Pak Machine Operator: [facility] Transcribe Date/Time: Apr 28 2020 8:42A Dictated by : ALLIE GANT MD This examination was interpreted and the report reviewed and electronically signed by: ALLIE GANT MD on Apr 28 2020 8:51AM EST Normal [facility] XR CHEST 1V FRONTALon 2019 XR CHEST 1V FRONTAL Final Report DATE OF EXAM: Apr 27 2020 7:50AM [facility] [id number] - XR CHEST 1V FRONTAL / PROCEDURE REASON: Chest pain or SOB, pleurisy or effusion suspected Physician Interpretation EXAMINATION: CHEST RADIOGRAPH (SINGLE VIEW AP OR PA) CLINICAL HISTORY: Chest pain or SOB, pleurisy or effusion suspected MQ: XC1_5 Comparison: 04/25/2020 RESULT: Lines, tubes, and devices: None. Lungs and pleura: No consolidation. No lung mass. No pleural effusion. No pneumothorax. Cardiomediastinal silhouette: Prominent cardiomediastinal silhouette likely due to projection. IMPRESSION: No acute radiographic abnormality. Pure Pak Machine Operator: [facility] Transcribe Date/Time: Apr 27 2020 8:20A Dictated by : DONA RODRIGUEZ MD This examination was interpreted and the report reviewed and electronically signed by: DONA RODRIGUEZ MD on Apr 27 2020 8:22AM EST [facility] Procedures Date Procedure Procedure Detail Performing Clinician Start: 09-24-2020 Antibody screen Comment on above: Order Comment: Specperez walton Type: BLOOD SPECIMEN Performed By: #### T SCR ####[facility] [id number] Start: 09-22-2020 Antibody screen Comment on above: Order Comment: Speci men Type: BLOOD SPECIMEN Performed By: #### T SCR ####[facility] [id number] Clinical Notes 09-22-2020 to 12-01-2020 Note Date & Type Note Facility 12-01-2020 Note [facility] 11-24-2020 Note [facility] 11-23-2020 Note [facility] 11[facility]22-2020 Note [facility] 11-21-2020 Note [facility] 11-20-2020 Note [facility] 11-19-2020 Note [facility] 11-19-2020 Note [facility] 11-18-2020 Note [facility] 11-17-2020 Note [facility] 11-17-2020 Note [facility] 11-16-2020 Note [facility] 11-16-2020 Note [facility] 11-15-2020 Note [facility] 11-15-2020 Note [facility] 11-14-2020 Note [facility] 11-13-2020 Note [facility] 10-30-2020 Note [facility] 10-23-2020 Note HNO ID: [id number] Author: Sherry Macedo MD Service: ? Author Type: Physician Type: Progress Notes Filed: 10/23/2020 6:39 PM Note Text: INFECTIOUS DISEASES OUTPATIENT FOLLOW-UP NOTE SERVICE DATE: 10/23/2020 Subjective INTERVAL HPI : This is a follow up visit. He was hospitalized from 09/21/2020 through 10/04/2020 for sternal wound infection. He has a history of mechanical AVR/CABG in April 2020. He underwent IANDD, removal of all sternal hardware, and wound VAC placement on 09/22/2020. Operative cultures grew Sebastian albicans and Sebastian glabrata. He was discharged from the hospital to a nursing facility on ertapenem for 6 weeks and Diflucan for 6 months. Currently the patient feels overall better. He has a wound VAC still sealing the sternal wound. He is getting IV ertapenem through right arm PICC line. He is on oral diflucan 400 mg per day. He is on Coumadin for mechanical aortic valve. His INR has been unstable with supratherapeutic levels. He is also on Lipitor.. Weekly safety monitoring labs were reviewed. Last WBC count was 5.2. Serum creatinine level was stable at 0.7. LFT was unremarkable. Normal appetite No n/v Has infrequent diarrhea No rashes No SOB No VALADEZ No cough No malaise Has some chest pain at the site of the sternal wound No joint pain ROS completed x14 and only pertinent data documented, the rest is negative except as documented above MEDICATIONS: Current Outpatient Medications Medication Sig - warfarin (COUMADIN) 3 mg tablet Take 1 tablet by mouth once daily. - glucagon 1 mg/mL injection Inject 1 mg intramuscularly as needed. - dextrose 40 % gel Take 15 g by mouth as needed. - dextrose 50% in water solution Inject 25 mL intravenously as needed. - gabapentin (NEURONTIN) 100 mg capsule Take 2 capsules by mouth every 12 hours for 30 days. - ertapenem (INVANZ) 1 g in NaCl 0.9% 100 mL Inject 100 mL intravenously every 24 hours. - insulin lispro (HUMALOG KWIKPEN) 100 unit/mL Inject 4 Units subcutaneously w MEALS. - polyethylene glycol 3350 (MIRALAX, GLYCOLAX) 17 gram packet Take 1 Packet by mouth once daily. - senna-docusate (SENNA-S) 8.6-50 mg per tablet Take 1 tablet by mouth twice daily. - bisacodyl (DULCOLAX) 10 mg supp 1 Suppository by RECTAL route as needed for up to 1 dose. - magnesium oxide (MAG-OX) 400 mg (241.3 mg magnesium) tablet Take 1 tablet by mouth once daily. - aspirin 81 mg chewable tablet Take 1 tablet by mouth once daily. - potassium chloride ER (K-DUR, KLOR-CON) 20 mEq tablet Take 1 tablet by mouth once daily. - insulin lispro (HUMALOG KWIKPEN) 100 unit/mL Inject 18 Units subcutaneously w MEALS. - insulin glargine (LANTUS SOLOSTAR, BASAGLAR KWIKPEN) 100 unit/mL (3 mL) Inject 35 Units subcutaneously once daily. - atorvastatin (LIPITOR) 40 mg tablet Take 1 tablet by mouth daily at bedtime. - furosemide (LASIX) 40 mg tablet Take 1 tablet by mouth once daily. - lisinopril (ZESTRIL, PRINIVIL) 5 mg tablet Take 1 tablet by mouth once daily. - metFORMIN (GLUCOPHAGE) 500 mg tablet Take 1 tablet by mouth twice daily with meals. - metoprolol succinate ER (TOPROL XL) 50 mg 24 hr tablet Take 1 tablet by mouth once daily. - sitaGLIPtin (JANUVIA) 100 mg tablet Take 1 tablet by mouth once daily. - acetaminophen (TYLENOL) 500 mg tablet Take 2 tablets by mouth every 6 hours. (Patient taking differently: Take 500 mg by mouth once daily. ) - micafungin 100 mg in D5W 100 mL MB+ (MYCAMINE) Inject 100 mg intravenously every 24 hours. No current facility-administered medications for this visit. Objective Social History Tobacco Use - Smoking status: Former Smoker Packs/day: 1.50 Years: 20.00 Pack years: 30.00 Types: Cigarettes Quit date: 04/2020 Years since quittin.5 - Smokeless tobacco: Never Used Vaping Use - Vaping Use: Never used Substance Use Topics - Alcohol use: Yes Comment: rarely - Drug use: Yes Comment: marijuana.coke/speed in past FAMILY HISTORY Problem Relation Age of Onset - other (Cerebral Aneurysms) Mother - other (Hypoglycemia) Sister - other (Dementia) Paternal Grandmother Heart - Heart Paternal Grandfather PHYSICAL EXAM PSYCHIATRIC: no apparent distress, oriented to time, place and person, appropriate affect, good judgment, good insight, memory intact SKIN: Sternal wound sealed with wound VAC, mild erythema of margins superiorly noted EYES: no scleral icterus, no conjunctivitis HEENT: normal inspection of teeth, lips, gums, and oropharynx NECK: normal appearance, normal movement RESPIRATORY: symmetrical chest expansion and respiratory effort, clear to auscultation CARDIOVASCULAR: S1, S2, crisp metallic sound audible ABDOMINAL: soft, non-distended, non-tender MUSCULOSKELETAL: normal muscle strength, normal muscle tone EXTREMITIES: Right arm PICC line site with no surrounding erythema or induration noted NEUROLOGICAL: nonfocal DIAGNOSTICS REVIE (more content not included)... [facility] 10-10-2020 Note [facility] 10-04-2020 Note [facility] 10-04-2020 Note [facility] 10-04-2020 Note HNO ID: [id number] Author: Interface Note Service: ? Author Type: ? Type: Progress Notes Filed: 10/04/2020 3:06 AM Note Text: Epic Scheduled Downtime: 10/04/2020 1:00:00 AM to 10/04/2020 2:48:00 AM [facility] 10-03-2020 Note [facility] 10-02-2020 Note [facility] 10-01-2020 Note [facility] 09-30-2020 Note [facility] 09-29-2020 Note [facility] 09-28-2020 Note [facility] 09-27-2020 Note [facility] 09-27-2020 Note [facility] 09-26-2020 Note [facility] 09[facility]26-2020 Note [facility] 09-25-2020 Note [facility] 09-24-2020 Note [facility] 09-23-2020 Note [facility] 09-23-2020 Note [facility] 09-22-2020 Note HNO ID: [id number] Author: Jenn JohnsRn) Wood, RN Service: Nursing Author Type: Registered Nurse Type: Nursing Progress Note Filed: 09/22/2020 5:27 PM Note Text: Report to [place] in [facility] Questions answered [facility] 09-22-2020 Note HNO ID: [id number] Author: Jenn JohnsRn) Wood, RN Service: Nursing Author Type: Registered Nurse Type: Nursing Progress Note Filed: 09/22/2020 4:37 PM Note Text: Dr Olga hernández for pacu orders [facility] 09-22-[address] [facility] Summary Purpose Family History No Family History Records FoundNo Family History Records FoundNo Family History Records Found Advance Directives No Advanced Directives Records FoundNo Advanced Directives Records FoundNo Advanced Directives Records Found Additional Source Comments (unrecognized sect ion and content) No Status Records FoundNo Status Records FoundNo Status Records Found INFORMATION SOURCE (unrecogn ized section and content) DATE CREATED AUTHOR 12/01/2020 [facility] DATE CREATED AUTHOR AUTHOR'S ORGANIZ ATION 09/03/2021 [facility] DATE CREATED AUTHOR AUTHOR'S ORGANIZ ATION 10/04/[address] [facility] FOR RECORDS PERTAINING TO PATIENTS WHO ARE OR HAVE BEEN ENROLLED IN A CHEMICAL DEPENDENCY/SUBSTANCEABUSE PROGRAM, SOME INFORMATION MAY BE OMITTED. This clinical summary was aggregated from multiple sources. Caution should be exercised in using it in the provision of clinical care. This summary normalizes information from multiple sources, and as a consequence, information in this document may materially change the coding, format and clinical context of patient data. In addition, data may be omitted in some cases. CLINICAL DECISIONS SHOULD BE BASED ON THE PRIMARY CLINICAL RECORDS. [employer] [facility]. provides no warranty or guarantee of the accuracy or completeness of information in this document.
== END | disposition home or self-care (01) ==
LOC: LABSPEC 18:07
PROVIDERS: PCP Family Medicine Geriatric Medicine; Visit Provider Podiatrist Foot & Ankle Surgery
DX: L97.519 Non-pressure chronic ulcer of other part of right foot with unspecified severity (principal)
CPT/HCPCS: 87070; 87075; 87077; 87186; 87205

== ENCOUNTER 2024-06-13 09:00 | Outpatient (RCR) | payer MEDICARE, MEDICAID, SELFPAY ==
[2024-05-30 09:01] VITALS: BP 133/56; PULSE 63; RESP 18; TEMP 35.8; BMI 26.4
--- NOTE | 2024-05-30 09:56 | HP.PCM_ITS ---
History of Present Illness Date of Service: 05/30/24 Chief Complaint: Ulcer right foot History of Wound: This patient presents to the wound healing center today for follow-up of ulcer to right foot with area of open surgical site. Patient is status post debridement of all nonviable, infected, necrotic soft tissue and bone of the right foot with open right hallux amputation performed on 07/18/2019. Patient also had a vascular procedure performed by Dr. Shah to try and reestablish better blood flow to the lower extremity. Following patient's discharge from the hospital he is been at a [facility] facility where he has had a wound VAC applied to the area that is to be changed 3 times a week. Patient currently feels well. Patient denies any feelings of nausea, vomiting, fever, chills. Progress of Wound: Mr. Coronel is a 73-year-old diabetic male who is presenting to wound care center today secondary to a gas infection to the right foot that ultimately ended up in a transmetatarsal amputation. Since then the patient has been following up in my private office for postoperative wound care. Due to the patient being a group home facility when able to get grafts in the private office and the patient was referred to the wound care center for continued care and graft authorization. Patient has been taking his antibiotic as prescribed. The nursing facility has been doing dressing changes as written. Patient shows improvement to his wounds to the right lower extremity. His blood sugars well- controlled. Denies pain. Denies trauma. Denies constitutional symptoms. No other pedal complaints at this time. [facility] Medical History Diabetes mellitus PVD (peripheral vascular disease) Anemia Diabetic foot infection PAOD (peripheral arterial occlusive disease) Trigger finger of both hands Amputation of second toe, right, traumatic Aftercare following surgery of the circulatory system Anemia Hyperbilirubinemia Nicotine dependence, cigarettes, uncomplicated Atherosclerosis of [place] arteries of right leg with ulceration of other part of foot Non-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 Peripheral vascular occlusive disease Diabetic ulcer of toe of left foot associated with type 2 diabetes mellitus Ulcer of toe of left foot Atherosclerosis of [place] arteries of left leg with ulceration of other part of foot Wears glasses Alcohol use Insulin dependent diabetes mellitus Back pain Syncope Dietary restriction Cardiology follow-up encounter History of rheumatic fever ZOFIA (acute kidney injury) Recurrent right pleural effusion Osteomyelitis of toe of right foot Non-pressure chronic ulcer of other part of left foot with fat layer exposed Acute exacerbation of CHF (congestive heart failure) Anticoagulant long-term use Acute and chronic respiratory failure with hypercapnia Encephalopathy acute Acute hypercapnic respiratory failure Atherosclerosis of lower extremity with ulceration COPD (chronic obstructive pulmonary disease) Inability to walk Adult failure to thrive CHF (congestive heart failure) Smoker Congestive heart failure Sternal wound infection 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 MSSA (methicillin susceptible Staphylococcus aureus) infection History of non-ST elevation myocardial infarction (NSTEMI) (04/23/20) 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 Chronic combined systolic and diastolic CHF (congestive heart failure) Type 2 diabetes mellitus Atherosclerosis of coronary artery without angina pectoris Nicotine dependence Ischemic cardiomyopathy Secondary pulmonary arterial hypertension Essential (primary) hypertension Nonrheumatic aortic (valve) stenosis 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 Osteomyelitis Diabetic foot infection Bleeding disorder Ulcer of right foot with fat layer exposed COPD (chronic obstructive pulmonary disease) Hyperlipidemia DVT (deep venous thrombosis) GERD (gastroesophageal reflux disease) Home Medications ?Medication ?Instructions ?Recorded ?Last Taken ?Type atorvastatin 40 mg tablet 40 mg PO DAILY cholesterol 11/12/20 11/03/23 History ferrous sulfate 325 mg (65 mg 325 mg PO DAILY 10/29/22 11/02/23 History iron) tablet furosemide 40 mg tablet 40 mg PO DAILY #0 tabs 11/12/22 11/02/23 Rx cyclobenzaprine 10 mg tablet 10 mg PO TID PRN Muscle Pain 12/11/22 11/02/23 History insulin lispro 100 unit/mL 5 unit subcut ACHS 12/11/22 11/03/23 History subcutaneous pen (Humalog KwikPen (U-100) Insulin) pantoprazole 40 mg tablet,delayed 40 mg PO QDAY 10/04/23 11/02/23 History release aspirin 81 mg tablet,delayed 81 mg PO DAILY 10/28/23 11/02/23 History release (Adult Aspirin Regimen) doxepin 50 mg capsule 50 mg PO DAILY 10/28/23 11/02/23 History gabapentin 100 mg capsule 100 mg PO BID 10/28/23 11/02/23 History insulin glargine-yfgn 100 unit/mL 15 unit subcut QHS 10/28/23 11/03/23 History (3 mL) subcutaneous pen linagliptin 5 mg tablet (Tradjenta) 5 mg PO DAILY 10/28/23 11/03/23 History metoprolol succinate 25 mg 25 mg PO DAILY 10/28/23 11/03/23 History tablet,extended release 24 hr mirtazapine 7.5 mg tablet 7.5 mg PO QHS 10/28/23 11/03/23 History xrgghbcv-zn-qkulh 300 mcg-K 60 1 tab PO DAILY 10/28/23 11/02/23 History mcg-lycop 600 mcg-lutein 300 mcg tablet (Centrum Silver Men) cholecalciferol (vitamin D3) 25 25 mcg PO DAILY 10/31/23 11/02/23 History mcg (1,000 unit) capsule losartan 100 mg tablet 100 mg PO DAILY 10/31/23 11/03/23 History clopidogrel 75 mg tablet (Plavix) 75 mg PO DAILY #90 tabs 12/21/23 Unknown Rx warfarin 1 mg tablet 4 mg PO DAILY 02/24/24 Unknown History ampicillin-sulbactam 3 gram 3 g IV Q8 40 days #120 ea 03/01/24 Unknown Rx solution for injection acetaminophen 325 mg tablet 1,000 mg (3.0769 x 325 mg) PO Q8H 03/02/24 Unknown Rx PRN PRN Fever, pain 1-04/26 #0 tabs arginine 7 gram-glutam 7 1 packet PO BIDCM #0 ea 03/02/24 Unknown Rx gram-CaHMB 1.5 uqxz-vcbbe-og-min oral pwd pkt (Renny (with collagen)) insulin lispro 100 unit/mL See Protocol subcut ACHS #0 mL 03/02/24 Unknown Rx subcutaneous pen (Humalog KwikPen (U-100) Insulin) vancomycin 1 gram/200 mL in 1,000 mg IV Q24H 37 days #37 BAGS 03/02/24 Unknown Rx dextrose 5 % intravenous piggyback cefdinir 300 mg capsule 300 mg PO BID 05/30/24 Unknown History Allergy/AdvReac Type Severity Reaction Status Date / Time No Known Allergies Allergy Verified 05/30/24 08:47 Family History Mother Diabetes Heart disease Father Diabetes Surgical History History of amputation History of incision and drainage (09/22/20) History of angioplasty of peripheral vessel (01/02/10) History of lumbar laminectomy History of femoropopliteal bypass (2008) H/O coronary artery bypass surgery (05/01/20) History of mechanical aortic valve replacement History of left heart catheterization (04/23/20) Social History household members: significant other Smoking Status: Current every day smoker tobacco type: cigarettes alcohol intake: never substance use type: does not use caffeine: No Vital Signs Vital Signs Vital Signs: 05/30/24 09:01 Temperature 96.4 F L Temperature Source Temporal Pulse Rate 63 Respiratory Rate 18 Blood Pressure 133/56 H Blood Pressure Mean 81 Blood Pressure Source Monitor Blood Pressure Position Sitting Blood Pressure Location Right Arm Oxygen Delivery Method Room Air Weight Weight: 86.183 kg Body Mass Index (BMI) 26.4 Physical Exam Narrative Vascular: DP and PT pulses are palpable to the right lower extremity. CFT is brisk to the flap to the right foot. Skin temperature great is warm to warm from proximal ankles to distal digits. Skin turgor is within normal limits. Neurological: Light touch intact. Patient does not respond to painful stimuli. Dermatological: The 3 full-thickness ulceration. Right transmetatarsal amputation stump wound measures 2.9 x 2.8 x 0.5 cm. Positive probe to bone. No drainage. No sign of infection at this time. The right proximal west full- thickness wound measures 1.0 x 0.5 x 0.1 cm. And the left heel eschar measures 3.5 x 2.0 x 0.1 cm. All wounds are stable. No current active infection or drainage is appreciated. Excisional debridement down to and including subcutaneous tissue fascia, muscle and bone to the right TMA full-thickness ulceration with a number 5 mm dermal curette without incident. Predebridement measurement was 2.7 x 2.7 x 0.3 cm. Postdebridement measurement is 2.9 x 2.8 x 0.1 cm. Excisional debridement down to and including subcutaneous tissue of the proximal right west with a number 5 mm dermal curette without incident. Predebridement measurement was callus. Postdebridement measurement is 1.0 x 0.5 x 0.1 cm. Musculoskeletal:. Muscle strength is 5 out of 5 in all quadrants to the right lower extremity. No pain to palpation to the full-thickness wounds to the right lower extremity. No pain with calf pressure. Debridement Note Debridement Note Debridement Free Text: Excisional debridement down to and including subcutaneous tissue fascia, muscle and bone to the right TMA full-thickness ulceration with a number 5 mm dermal curette without incident. Predebridement measurement was 2.7 x 2.7 x 0.3 cm. Postdebridement measurement is 2.9 x 2.8 x 0.1 cm. Excisional debridement down to and including subcutaneous tissue of the proximal right west with a number 5 mm dermal curette without incident. Predebridement measurement was callus. Postdebridement measurement is 1.0 x 0.5 x 0.1 cm. Post-Debridement Measurements and Additional Note: Post-Debridement Measurements/Treatment - Nurse 1 - General Ulcer Assessment Start: 05/30/24 08:46 Freq: Status: Active Protocol: YOCASTA Activity Type Activity Date Activity User E-sign Co-sign Detail Recorded Client Recorded Date Recorded By Document 05/30/24 08:56 DS [id number] 05/30/24 09:00 DS Document 05/30/24 09:01 DS [id number] 05/30/24 09:25 DS 05/30/24 05/30/24 08:56 09:01 - Today's Visit Information Type of service Initial Visit Arrival Mode Wheelchair Patient Identification Verified (Name & Yes ) Patient Requires Transmission-Based No Precautions Safety Precautions Fall Prevention Height and Weight Height 5 ft 11 in Weight 86.183 kg Weight in Pounds 190.0 lbs Weight Measurement Method Estimated by Patient Body Mass Index (BMI) 26.4 BMI Classification Overweight BSA - [place] 2.06 Vital Signs Temperature (97.8 F-99.1 F) 96.4 F L Temperature Source Temporal Pulse Rate (60-100) 63 Pulse Location Monitor Respiratory Rate (12-18) 18 Respiratory rate source Observation Oxygen Delivery Method Room Air Blood Pressure (90/60-120/80) 133/56 H Blood Pressure Mean 81 Source Monitor Position Sitting Blood Pressure Location Right Arm History Since Last Visit- (Skip if this is Patient's initial visit) Left Footwear Slipper Right Footwear No Footwear Pain Scale: 0-10 Numeric Is Patient Pain Free? 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 No Teaching Assessment Preferences Verbal,Written, Demonstration Barriers to Learning None Readiness To Learn Good Willingness to Engage in Self Management Med Activies Readiness to Engage in Self Management Med Activities Anxiety Level Calm Cooperation Cooperative Perception Coherent Interest in Health Problem Asks Questions Education Importance Acknowledges Need Does Patient Smoke tobacco or other Yes substances Smoking Status Current every day smoker Is Patient Diabetic Yes Functional Assessment Recent Decline in Ability to Perform Ambulation 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 Cultural/Adventism Needs that may affect No Treatment Plan WC - Nurse 1 - General Ulcer Measurement Start: 05/30/24 08:46 Freq: Status: Active Protocol: Activity Type Activity Date Activity User E-sign Co-sign Detail Recorded Client Recorded Date Recorded By Document 05/30/24 09:26 DS [id number] 05/30/24 09:31 DS 05/30/24 09:26 Wound Center Nurse 1 #4 right heel -Combined with other wound No -Current Size (cm) - Length 3.0 -Current Size (cm) - Width 4.0 -Current Size (cm) - Depth 0.1 -Total Square Cm 12.00 -Date of Last Picture (Recall this 05/30/24 field) -Photo Taken Yes -Tunneling No -Undermining/Tunneling No -Circular Undermining No -Exudate Amt None Present -Necrosis Amt Large (67-100%) -Necrotic Tissue Type Eschar -Texture (Donna-wound Skin Appearance) Assessed -Moisture (Donna-wound Skin Appearance) Assessed -Color (Donna-wound Skin Appearance) Assessed -Temperature (Donna-wound Skin No Abnormality Appearance) (Pt Warm) -Tenderness on Palpation (Donna-wound No Skin Appearance) -Ulcer Cleansing Soap and Water -Anesthetic Used 5% Lidocaine Gel #3 right laterial foot -Current Size (cm) - Length 3.1 -Current Size (cm) - Width 2.4 -Current Size (cm) - Depth 1.0 -Total Square Cm 7.44 -Date of Last Picture (Recall this 05/30/24 field) -Photo Taken Yes -Tunneling No -Undermining/Tunneling No -Circular Undermining No -Exudate Amt Small -Exudate Type Serosanguineous -Wound Margin Distinct, Outline Attached -Granulation Amt Medium (34-66%) -Granulation Quality [place] -Necrosis Amt Small (1-33%) -Necrotic Tissue Type Adherent Slough -Texture (Donna-wound Skin Appearance) Assessed -Moisture (Donna-wound Skin Appearance) Assessed -Color (Donna-wound Skin Appearance) Assessed -Temperature (Donna-wound Skin No Abnormality Appearance) (Pt Warm) -Tenderness on Palpation (Donna-wound No Skin Appearance) -Ulcer Cleansing Soap and Water -Anesthetic Used 5% Lidocaine Gel #2 right west -Current Size (cm) - Length 2.0 -Current Size (cm) - Width 1.5 -Current Size (cm) - Depth 0.1 -Total Square Cm 3.00 -Date of Last Picture (Recall this 05/30/24 field) -Photo Taken Yes -Tunneling No -Undermining/Tunneling No -Circular Undermining No -Exudate Amt None Present -Wound Margin Distinct, Outline Attached -Texture (Donna-wound Skin Appearance) Assessed -Moisture (Donna-wound Skin Appearance) Assessed -Color (Donna-wound Skin Appearance) Assessed -Temperature (Donna-wound Skin No Abnormality Appearance) (Pt Warm) -Tenderness on Palpation (Donna-wound No Skin Appearance) -Ulcer Cleansing Soap and Water -Anesthetic Used 5% Lidocaine Gel Right Calf (cm) 31.2 Right Ankle (cm) 22.5 WC - Nurse 2 - General Ulcer CM Notes Start: 05/30/24 08:46 Freq: Status: Active Protocol: Activity Type Activity Date Activity User E-sign Co-sign Detail Recorded Client Recorded Date Recorded By Document 05/30/24 09:47 NESS [id number] 05/30/24 09:53 NESS 05/30/24 09:47 Wound Center Nurse 2 #4 right heel -Correct Patient No -Correct Side, Site, Position No -Correct Procedure No -Procedure Performed No -Wound/Ulcer Outcome Not Healed #3 right laterial foot -Time 09:51 -Correct Patient Yes -Correct Side, Site, Position Yes -Correct Procedure Yes -Procedure Performed Yes -Type of Procedure Debridement -Clinical Debridement Bone -Tissue Removed Non-viable tissue -Post Debridement (cm) - Length 2.9 -Post Debridement (cm) - Width 2.8 -Post Debridement (cm) - Depth 0.5 -Total Square (Post) (cm) 8.12 -Area of Debridement (cm) - Length 2.9 -Area of Debridement (cm) - Width 2.8 -Total Square (Area) (cm) 8.12 -Tunneling No -Undermining/Tunneling No -Circular Undermining No -Wound/Ulcer Outcome Not Healed -Ulcer Cleansing Rinsed/ Irrigated with Saline -Foul Odor after Cleansing No -Bioengineered Tissue No -Bleeding Controlled with Pressure -Treatment Response Procedure Tolerated Well -Offloading Yes -Type of Offloading Surgical Shoe -Debridement - Bone, 1st 20sq cm Yes #2 right west -Time 09:51 -Correct Patient Yes -Correct Side, Site, Position Yes -Correct Procedure Yes -Procedure Performed Yes -Type of Procedure Debridement -Clinical Debridement Subcutaneous -Tissue Removed Subcutaneous -Post Debridement (cm) - Length 1.0 -Post Debridement (cm) - Width 0.5 -Post Debridement (cm) - Depth 0.1 -Total Square (Post) (cm) 0.50 -Area of Debridement (cm) - Length 1.0 -Area of Debridement (cm) - Width 0.5 -Total Square (Area) (cm) 0.50 -Tunneling No -Undermining/Tunneling No -Circular Undermining No -Wound/Ulcer Outcome Not Healed -Ulcer Cleansing Rinsed/ Irrigated with Saline -Foul Odor after Cleansing No -Bioengineered Tissue No -Bleeding Controlled with Pressure -Treatment Response Procedure Tolerated Well -Offloading No -Debridement - Subq, 1st 20sq cm Yes Pain Scale: 0-10 Numeric Is Patient Pain Free? Yes Assessment/Plan Assessment/Plan (1) 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 All findings were discussed with the patient. All questions were answered to the patient's satisfaction. Excisional debridement down to and including subcutaneous tissue fascia, muscle and bone to the right TMA full-thickness ulceration with a number 5 mm dermal curette without incident. Predebridement measurement was 2.7 x 2.7 x 0.3 cm. Postdebridement measurement is 2.9 x 2.8 x 0.1 cm. Excisional debridement down to and including subcutaneous tissue of the proximal right west with a number 5 mm dermal curette without incident. Predebridement measurement was callus. Postdebridement measurement is 1.0 x 0.5 x 0.1 cm. Right lower extremities were cleaned and patted dry. The west and TMA site was dressed with Dakin's soaked gauze and the heel was dressed with Betadine soaked gauze. Dry sterile dressing was applied followed by compression wrap. Orders were given for daily dressing changes to the group home facility wound care team. Will begin authorization for amniotic skin graft substitutes to help stimulate and aid in the patient's healing of the full-thickness wound to the transmetatarsal amputation wound. Follow-up at the wound care center with Dr. Lyons in 1 week. (2) Non-pressure chronic ulcer of other part of right lower leg with fat layer exposed: CODE(S): L97.812 - Non-pressure chronic ulcer of other part of right lower leg with fat layer exposed (3) Unstageable pressure ulcer of right heel: CODE(S): L89.610 - Pressure ulcer of right heel, unstageable (4) Acute painful diabetic polyneuropathy: CODE(S): E11.42 - Type 2 diabetes mellitus with diabetic polyneuropathy (5) Other specified peripheral vascular diseases: CODE(S): I73.89 - Other specified peripheral vascular diseases
--- NOTE | 2024-05-31 08:55 | WC ---
PHOTO 05/30/24 RIGHT FOOT
--- NOTE | 2024-05-31 09:12 | WC ---
PHOTO RIGHT FOOT 05/30/24
--- NOTE | 2024-05-31 09:25 | WC ---
PHOTO RIGHT FOOT 05/30/23
--- NOTE | 2024-05-31 09:27 | WC ---
PHOTO 05/30/24 RIGHT FOOT
[2024-06-13 09:00] VITALS: BP 133/62; PULSE 58; RESP 18; TEMP 35.7; BMI 26.4
--- NOTE | 2024-06-13 11:09 | PN.PCM_ITS ---
History of Present Illness Date of Service: 06/13/24 Chief Complaint: Ulcer right foot History of Wound: This patient presents to the wound healing center today for follow-up of ulcer to right foot with area of open surgical site. Patient is status post debridement of all nonviable, infected, necrotic soft tissue and bone of the right foot with open right hallux amputation performed on 07/18/2019. Patient also had a vascular procedure performed by Dr. Shah to try and reestablish better blood flow to the lower extremity. Following patient's discharge from the hospital he is been at a alf facility where he has had a wound VAC applied to the area that is to be changed 3 times a week. Patient currently feels well. Patient denies any feelings of nausea, vomiting, fever, chills. Progress of Wound: Mr. Coronel is a 73-year-old diabetic male who is presenting to wound care center today secondary to a gas infection to the right foot that ultimately ended up in a transmetatarsal amputation. Since then the patient has been following up in my private office for postoperative wound care. Due to the patient being a shelter facility when able to get grafts in the private office and the patient was referred to the wound care center for continued care and graft authorization. Patient has been taking his antibiotic as prescribed. The nursing facility has been doing dressing changes as written. Patient shows improvement to his wounds to the right lower extremity. His blood sugars well- controlled. Denies pain. Denies trauma. Denies constitutional symptoms. No other pedal complaints at this time. Subjective Subjective Mr. Coronel is a 73-year-old diabetic male presented wound care center today follow-up evaluation to 3 full-thickness wounds to the right lower extremity. He has been at a shelter facility with regular dressing changes. Blood sugar under control. Denies any pain to the right lower extremity. He is working with physical therapy. Denies trauma. Denies constitutional symptoms. No other pedal complaints at this time. Objective Data Objective Data Vital Signs: Vital Signs Temp Pulse Resp BP O2 Del Method 96.3 F L 58 L 18 133/62 H Room Air 06/13/24 09:00 06/13/24 09:00 06/13/24 09:00 06/13/24 09:00 05/30/24 09:01 Oxygen Delivery Method Room Air Weight: 86.183 kg Body Mass Index (BMI) 26.4 Physical Exam Narrative Vascular: DP and PT pulses are palpable to the right lower extremity. CFT is brisk to the flap to the right foot. Skin temperature great is warm to warm from proximal ankles to distal digits. Skin turgor is within normal limits. Neurological: Light touch intact. Patient does not respond to painful stimuli. Dermatological: The 3 full-thickness ulceration. Right transmetatarsal amputation stump wound measures 3.4 x 2.5 x 1.0 cm. Negative probe to bone. No drainage no sign of infection. The right proximal west full-thickness wound measures 0.5 x 0.3 x 0.1 cm. Left heel eschar measures 3.8 x 2.5 x 0.2 cm. All wounds are stable. No current active infection or drainage is appreciated. Excisional debridement down to and including subcutaneous tissue to the right TMA full-thickness ulceration with a number 5 mm dermal curette without incident. Predebridement measurement was 3.2 x 2.2 x 0.8 cm. Postdebridement measurement is 3.4 x 2.5 x 1.0 cm. Excisional debridement down to and including subcutaneous tissue of the proximal right west with a number 5 mm dermal curette without incident. Predebridement measurement was callus. Postdebridement measurement is 0.5 x 0.3 x 0.1 cm. Excisional debridement down to and including subcutaneous tissue of the right posterior heel with a #15 blade and pickup without incident. Predebridement measurement was eschar. Postdebridement measurement is 3.8 x 2.5 x 0.2 cm. EpiCord 2.0 x 3.0 cm graft was applied to the right full-thickness ulceration to the TMA site with 100% use. First application. The graft site was free and clear of any infection. The wound/skin graft substitute was dressed with nonadherent bandage secured in place with Steri-Strips followed by bolster dressing as well as a single Tubigrip compression bandage donned to the right lower extremity. Musculoskeletal:. Muscle strength is 5 out of 5 in all quadrants to the right lower extremity. No pain to palpation to the full-thickness wounds to the right lower extremity. No pain with calf pressure. Debridement Note Debridement Note Debridement Free Text: Excisional debridement down to and including subcutaneous tissue to the right TMA full-thickness ulceration with a number 5 mm dermal curette without incident. Predebridement measurement was 3.2 x 2.2 x 0.8 cm. Postdebridement measurement is 3.4 x 2.5 x 1.0 cm. Excisional debridement down to and including subcutaneous tissue of the proximal right west with a number 5 mm dermal curette without incident. Predebridement measurement was callus. Postdebridement measurement is 0.5 x 0.3 x 0.1 cm. Excisional debridement down to and including subcutaneous tissue of the right posterior heel with a #15 blade and pickup without incident. Predebridement measurement was eschar. Postdebridement measurement is 3.8 x 2.5 x 0.2 cm. EpiCord 2.0 x 3.0 cm graft was applied to the right full-thickness ulceration to the TMA site with 100% use. First application. The graft site was free and clear of any infection. The wound/skin graft substitute was dressed with nonadherent bandage secured in place with Steri-Strips followed by bolster dressing as well as a single Tubigrip compression bandage donned to the right lower extremity. 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 ) Arrival Mode Wheelchair Wheelchair Transfer Assistance Manual Patient Identification Verified (Name & Yes Yes ) Patient Requires Transmission-Based No No Precautions Safety Precautions Fall Prevention Height and Weight Height 5 ft 11 in Weight 86.183 kg Weight in Pounds 190.0 lbs Weight Measurement Method Estimated by Patient Body Mass Index (BMI) 26.4 26.4 BMI Classification Overweight Overweight BSA - [place] 2.06 Vital Signs Temperature (97.8 F-99.1 F) 96.4 F L 96.3 F L Temperature Source Temporal Temporal Pulse Rate (60-100) 63 58 L Pulse Location Monitor Monitor Respiratory Rate (12-18) 18 18 Respiratory rate source Observation Observation Oxygen Delivery Method Room Air Blood Pressure (90/60-120/80) 133/56 H 133/62 H Blood Pressure Mean (mm Hg) 81 85 Source Monitor Monitor Position Sitting Semi-Fowlers Blood Pressure Location Right Arm Left Arm History Since Last Visit- (Skip if this is Patient's initial visit) Have you changed medications since your No last visit? Any new allergies or adverse reactions No Had a fall/change in ADL's that may No increase risk of falls Signs or symptoms of abuse and/or No neglect since last visit Have you been in the hospital since your No last visit? Has dressing in place as prescribed Yes Has compression in place as prescribed Yes Has offloadiing in place as prescribed Yes Experienced any changes in pain level or No management Left Footwear Slipper Right Footwear No Footwear Surgical Shoe with pressure relief insole Pain Scale: 0-10 Numeric Is Patient Pain Free? Yes Yes Yes Lower Extremity Assessment/ Foot Assessment/ Toe Nail Assessment Right -Lower Extremity Assessment Not Applicable due to Amputation -Claudication Assessment N/A due to Amputation -Extremity Color Normal -Hair Growth on Legs Yes -Temperature of Extremity Warm -Toe Nail Assessment Not Applicable due to Amputation Communication Assessment Preferred language [employer] Assistant Required No Teaching Assessment Preferences Verbal,Written, Demonstration Barriers to Learning None Readiness To Learn Good Willingness to Engage in Self Management Med Activies Readiness to Engage in Self Management Med Activities Anxiety Level Calm Cooperation Cooperative Perception Coherent Interest in Health Problem Asks Questions Education Importance Acknowledges Need Does Patient Smoke tobacco or other Yes substances Smoking Status Current every day smoker Is Patient Diabetic Yes Functional Assessment Recent Decline in Ability to Perform Ambulation Culture/Anabaptist/End Packer Cultural/Anabaptist Needs that may affect No Treatment Plan WC - Nurse 1 - General Ulcer Measurement Start: 05/30/24 08:46 Freq: Status: Active Protocol: Activity Type Activity Date Activity User E-sign Co-sign Detail Recorded Client Recorded Date Recorded By Document 05/30/24 09:26 DS [id number] 05/30/24 09:31 DS Document 06/13/24 09:00 RB [id number] 06/13/24 09:15 RB 05/30/24 06/13/24 09:26 09:00 Wound Center Nurse 1 #4 right heel -Combined with other wound No No -Current Size (cm) - Length 3.0 4.2 -Current Size (cm) - Width 4.0 3 -Current Size (cm) - Depth 0.1 0.1 -Total Square Cm 12.00 12.6 -Date of Last Picture (Recall this 05/30/24 field) -Photo Taken Yes Yes -Tunneling No No -Undermining/Tunneling No No -Circular Undermining No No -Exudate Amt None Present Small -Exudate Type Serosanguineous -Wound Margin Distinct, Outline Attached -Granulation Amt None Present (0 %) -Slough/Fibrin Yes -Necrosis Amt Large (67-100%) Large (67-100%) -Necrotic Tissue Type Eschar Eschar -Structure Exposed N/A -Texture (Donna-wound Skin Appearance) Assessed Assessed -Moisture (Donna-wound Skin Appearance) Assessed Assessed -Color (Donna-wound Skin Appearance) Assessed Assessed -Temperature (Donna-wound Skin No Abnormality No Abnormality Appearance) (Pt Warm) (Pt Warm) -Tenderness on Palpation (Donna-wound No No Skin Appearance) -Ulcer Cleansing Soap and Water Wound Cleanser -Foul Odor after Cleansing No -Anesthetic Used 5% Lidocaine 5% Lidocaine Gel Gel #3 right laterial foot -Combined with other wound No -Current Size (cm) - Length 3.1 2.5 -Current Size (cm) - Width 2.4 2.5 -Current Size (cm) - Depth 1.0 1.1 -Total Square Cm 7.44 6.25 -Date of Last Picture (Recall this 05/30/24 field) -Photo Taken Yes Yes -Tunneling No No -Undermining/Tunneling No No -Circular Undermining No No -Exudate Amt Small Large -Exudate Type Serosanguineous Serosanguineous -Wound Margin Distinct, Thickened & Outline Rolled Under Attached -Granulation Amt Medium (34-66%) Large (67-100%) -Granulation Quality Che[place] Chetek -Slough/Fibrin Yes -Necrosis Amt Small (1-33%) Small (1-33%) -Necrotic Tissue Type Adherent Slough Adherent Slough -Structure Exposed N/A -Texture (Donna-wound Skin Appearance) Assessed Assessed, Scarring -Moisture (Donna-wound Skin Appearance) Assessed Assessed -Color (Donna-wound Skin Appearance) Assessed Assessed -Temperature (Donna-wound Skin No Abnormality No Abnormality Appearance) (Pt Warm) (Pt Warm) -Tenderness on Palpation (Donna-wound No No Skin Appearance) -Ulcer Cleansing Soap and Water Wound Cleanser -Foul Odor after Cleansing No -Anesthetic Used 5% Lidocaine 5% Lidocaine Gel Gel #2 right west -Combined with other wound No -Current Size (cm) - Length 2.0 0.5 -Current Size (cm) - Width 1.5 0.3 -Current Size (cm) - Depth 0.1 0.1 -Total Square Cm 3.00 0.15 -Date of Last Picture (Recall this 05/30/24 field) -Photo Taken Yes Yes -Tunneling No No -Undermining/Tunneling No No -Circular Undermining No No -Exudate Amt None Present Medium -Exudate Type Serosanguineous -Wound Margin Distinct, Distinct, Outline Outline Attached Attached -Granulation Amt Medium (34-66%) -Granulation Quality [place] -Slough/Fibrin Yes -Necrosis Amt Small (1-33%) -Necrotic Tissue Type Adherent Slough -Structure Exposed N/A -Texture (Donna-wound Skin Appearance) Assessed Assessed -Moisture (Donna-wound Skin Appearance) Assessed Dry/Scaly -Color (Donna-wound Skin Appearance) Assessed Assessed -Temperature (Donna-wound Skin No Abnormality No Abnormality Appearance) (Pt Warm) (Pt Warm) -Tenderness on Palpation (Donna-wound No No Skin Appearance) -Ulcer Cleansing Soap and Water Wound Cleanser -Foul Odor after Cleansing No -Anesthetic Used 5% Lidocaine 5% Lidocaine Gel Gel Lower Limb Edema Present Yes Right Calf (cm) 31.2 31 Right Ankle (cm) 22.5 20.2 WC - Nurse 2 - General Ulcer CM Notes Start: 05/30/24 08:46 Freq: Status: Active Protocol: Activity Type Activity Date Activity User E-sign Co-sign Detail Recorded Client Recorded Date Recorded By Document 05/30/24 09:47 JF [id number] 05/30/24 09:53 JF Document 06/13/24 09:32 JF [id number] 06/13/24 09:42 JF 05/30/24 06/13/24 09:47 09:32 Wound Center Nurse 2 #4 right heel -Time 09:32 -Correct Patient No Yes -Correct Side, Site, Position No Yes -Correct Procedure No Yes -Procedure Performed No Yes -Type of Procedure Debridement -Clinical Debridement Subcutaneous -Tissue Removed Subcutaneous -Post Debridement (cm) - Length 3.8 -Post Debridement (cm) - Width 2.5 -Post Debridement (cm) - Depth 0.2 -Total Square (Post) (cm) 9.50 -Area of Debridement (cm) - Length 3.8 -Area of Debridement (cm) - Width 2.5 -Total Square (Area) (cm) 9.50 -Tunneling No -Undermining/Tunneling No -Circular Undermining No -Wound/Ulcer Outcome Not Healed Not Healed -Ulcer Cleansing Rinsed/ Irrigated with Saline -Foul Odor after Cleansing No -Bioengineered Tissue No -Bleeding Controlled with Pressure -Treatment Response Procedure Tolerated Well -Offloading No -Debridement - Subq, 1st 20sq cm No #3 right laterial foot -Time 09:51 09:39 -Correct Patient Yes Yes -Correct Side, Site, Position Yes Yes -Correct Procedure Yes Yes -Procedure Performed Yes Yes -Type of Procedure Debridement Debridement -Clinical Debridement Bone Subcutaneous -Tissue Removed Non-viable Subcutaneous tissue -Post Debridement (cm) - Length 2.9 3.4 -Post Debridement (cm) - Width 2.8 2.5 -Post Debridement (cm) - Depth 0.5 1.0 -Total Square (Post) (cm) 8.12 8.50 -Area of Debridement (cm) - Length 2.9 3.4 -Area of Debridement (cm) - Width 2.8 2.5 -Total Square (Area) (cm) 8.12 8.50 -Tunneling No No -Undermining/Tunneling No No -Circular Undermining No No -Wound/Ulcer Outcome Not Healed Not Healed -Ulcer Cleansing Rinsed/ Rinsed/ Irrigated with Irrigated with Saline Saline -Foul Odor after Cleansing No No -Bioengineered Tissue No Yes -Type of Bioengineered Tissue Epicord -Expiration Date 12/16/28 -Product Lot Number [id number] -Percent Used 100 -Lot number of Saline Used [id number] -Bleeding Controlled with Pressure Pressure -Treatment Response Procedure Procedure Tolerated Well Tolerated Well -Offloading Yes No -Type of Offloading Surgical Shoe -Debridement - Subq, 1st 20sq cm No -Debridement - Bone, 1st 20sq cm Yes -Apply Skin Sub - 1st 25 sq cm - Feet 1 -Epicord (per sq cm) 6 #2 right west -Time 09:51 09:40 -Correct Patient Yes Yes -Correct Side, Site, Position Yes Yes -Correct Procedure Yes Yes -Procedure Performed Yes Yes -Type of Procedure Debridement Debridement -Clinical Debridement Subcutaneous Subcutaneous -Tissue Removed Subcutaneous Subcutaneous -Post Debridement (cm) - Length 1.0 0.5 -Post Debridement (cm) - Width 0.5 0.3 -Post Debridement (cm) - Depth 0.1 0.1 -Total Square (Post) (cm) 0.50 0.15 -Area of Debridement (cm) - Length 1.0 0.5 -Area of Debridement (cm) - Width 0.5 0.3 -Total Square (Area) (cm) 0.50 0.15 -Tunneling No No -Undermining/Tunneling No No -Circular Undermining No No -Wound/Ulcer Outcome Not Healed Not Healed -Ulcer Cleansing Rinsed/ Rinsed/ Irrigated with Irrigated with Saline Saline -Foul Odor after Cleansing No No -Bioengineered Tissue No No -Bleeding Controlled with Pressure Pressure -Treatment Response Procedure Procedure Tolerated Well Tolerated Well -Offloading No No -Debridement - Subq, 1st 20sq cm Yes Yes Pain Scale: 0-10 Numeric Is Patient Pain Free? Yes Yes WC - Nurse 3 - General Ulcer D/C NN Start: 05/30/24 08:46 Freq: Status: Active Protocol: Activity Type Activity Date Activity User E-sign Co-sign Detail Recorded Client Recorded Date Recorded By Document 05/30/24 10:10 [id number] 05/30/24 10:11 Document 06/13/24 10:06 RB [id number] 06/13/24 10:07 RB 05/30/24 06/13/24 10:10 10:06 Wound Care Center Nurse 3 #4 right heel -Ulcer Cleansing Not Cleansed -Foul Odor after Cleansing No -Other Dressing betadine gauze, abd nurses hat -Primary Dressing Covered/Secured with Dry Gauze & Dry Gauze & Roll Gauze, Roll Gauze, Secured with Secured with Tape Tape -Other Covering betadine #3 right laterial foot -Ulcer Cleansing Not Cleansed -Primary Dressing Covered/Secured with Dry Gauze & Dry Gauze,Dry Roll Gauze, Gauze & Roll Secured with Gauze,Secured Tape with Tape -Other Covering dakins moist #2 right west -Ulcer Cleansing Not Cleansed -Foul Odor after Cleansing No -Primary Dressing Applied Promogran Araceli Matter -Primary Dressing Covered/Secured with Dry Gauze, Secured with Tape -Other Covering dakins moist -Promogran Araceli Matter 1 Right -Compression Wrap Donte Wrap -Other donte Treatment Response Procedure Tolerated Well Pain Scale: 0-10 Numeric Is Patient Pain Free? Yes Yes WC - Visit Discharge Discharge Condition Stable Stable Ambulatory Status Wheelchair Wheelchair Transportation Private Auto Private Auto Medication Reconcilliation completed & No provided to patient/care provider Clinical Summary of Care Provided Yes Assessment/Plan Assessment/Plan (1) Non-pressure chronic ulcer of other part of right foot with fat layer exposed: CODE(S): L97.512 - Non-pressure chronic ulcer of other part of right foot with fat layer exposed PLAN: Patient was examined and evaluated. All findings were discussed with the patient. All questions were answered to the patient's satisfaction. Excisional debridement down to and including subcutaneous tissue to the right TMA full-thickness ulceration with a number 5 mm dermal curette without incident. Predebridement measurement was 3.2 x 2.2 x 0.8 cm. Postdebridement measurement is 3.4 x 2.5 x 1.0 cm. Excisional debridement down to and including subcutaneous tissue of the proximal right west with a number 5 mm dermal curette without incident. Predebridement measurement was callus. Postdebridement measurement is 0.5 x 0.3 x 0.1 cm. Excisional debridement down to and including subcutaneous tissue of the right posterior heel with a #15 blade and pickup without incident. Predebridement measurement was eschar. Postdebridement measurement is 3.8 x 2.5 x 0.2 cm. EpiCord 2.0 x 3.0 cm graft was applied to the right full-thickness ulceration to the TMA site with 100% use. First application. The graft site was free and clear of any infection. The wound/skin graft substitute was dressed with nonadherent bandage secured in place with Steri-Strips followed by bolster dressing as well as a single Tubigrip compression bandage donned to the right lower extremity. The proximal west was dressed with moist Araceli in the right heel was dressed with Betadine soaked gauze followed by dry sterile dressing and multilayer compression bandage was applied to the right lower extremity. Patient will leave the graft intact at the nursing facility not have the proximal west ulceration and he will ulceration change per instructions. Continue strict blood sugar control. Follow-up at the wound care center with Dr. Lyons in 1 week. (2) Non-pressure chronic ulcer of right heel and midfoot with fat layer exposed: CODE(S): L97.412 - Non-pressure chronic ulcer of right heel and midfoot with fat layer exposed (3) Non-pressure chronic ulcer of other part of right lower leg with fat layer exposed: CODE(S): L97.812 - Non-pressure chronic ulcer of other part of right lower leg with fat layer exposed
--- NOTE | 2024-06-19 15:13 | WC ---
PHOTO 06/13/24 RIGHT NULL
--- NOTE | 2024-06-19 15:13 | WC ---
PHOTO RIGHT LATERAL FOOT 06/13/24
--- NOTE | 2024-06-19 15:14 | WC ---
PHOTO 06/13/24 RIGHT HEEL
== END 2024-06-16 23:59 | disposition home or self-care (01) ==
LOC: WC 09:00
PROVIDERS: PCP Family Medicine Geriatric Medicine; Referring Provider Podiatrist Foot & Ankle Surgery; Visit Provider Podiatrist Foot & Ankle Surgery
DX: E11.621 Type 2 diabetes mellitus with foot ulcer (principal); L97.516 Non-pressure chronic ulcer of other part of right foot with bone involvement without evidence of necrosis; L89.610 Pressure ulcer of right heel, unstageable; L97.812 Non-pressure chronic ulcer of other part of right lower leg with fat layer exposed; I50.42 Chronic combined systolic (congestive) and diastolic (congestive) heart failure; I11.0 Hypertensive heart disease with heart failure; J44.9 Chronic obstructive pulmonary disease, unspecified; Z79.4 Long term (current) use of insulin; E11.51 Type 2 diabetes mellitus with diabetic peripheral angiopathy without gangrene; E11.42 Type 2 diabetes mellitus with diabetic polyneuropathy; I25.10 Atherosclerotic heart disease of native coronary artery without angina pectoris; Z79.82 Long term (current) use of aspirin; Z79.01 Long term (current) use of 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s; F17.210 Nicotine dependence, cigarettes, uncomplicated; E78.5 Hyperlipidemia, unspecified; D64.9 Anemia, unspecified; I25.5 Ischemic cardiomyopathy; Z89.429 Acquired absence of other toe(s), unspecified side; I25.2 Old myocardial infarction
CPT/HCPCS: 11042; 11044; 15275; 99214; Q4187; G0463

== ENCOUNTER → 2024-07-02 | Outpatient (CLI) | payer MEDICARE, MEDICAID, SELFPAY ==
--- NOTE | 2024-07-02 13:52 | ADUL_ITS ---
Reason For Study: S/P Lt PT angioplasty/stent, prior profunda-SECURITY SYSTEM ANALYST bypass Left Velocities Ext Iliac Artery, dist = 126.7 cm./sec. ELECTRICAL SIGN WIRER mid, Prox to bypass, 180.7 cm/sec. Profunda Femoral Artery = 100.8 cm./sec. SFA and Giovanny are occluded. Bypass Graft, ELECTRICAL SIGN WIRER-SECURITY SYSTEM ANALYST mid Prox anstomosis, 119.8 cm/sec. Prox graft, 47.2 cm/sec. Mid graft, 33.9 cm/sec. Distal graft, 29.6 cm/sec. Distal anastomosis, 23.5 cm/sec. SECURITY SYSTEM ANALYST mid, distal to bypass, 74.6 cm/sec. Post Tibial Artery, dist. = 122.7 cm./sec. PeroA, Retrograde flow throughout. MAGNUS, No Flow Throughout. Procedure Exam performed in department. /US Art Duplex Unilat Lower Ext Interpretation Summary Patent left profunda-PT bypass with no stenosis identified. Diminished velocities in graft unchanged, stenosis of posterior tibial resolved . Ordering Physician: Noemí Amos Referring Physician: Saurabh Hernandez Chi Performed By: Maricel Delcid RVT
--- NOTE | 2024-07-02 13:52 | ART_ITS ---
Reason For Study: S/P Lt PT angioplasty/stent, prior profunda-TEAROOM HOST bypass Procedure A bilateral lower extremity continuous wave Doppler with analog waveform analysis and ankle brachial indexes. Left Segmental Pressures Left brachial= 138mmHg. Left posterior tibial artery = 164mmHg. Left dorsalis pedis artery = 124mmHg. Left digit = 57 mmHg. The left dorsalis pedis waveforms are monophasic. The left posterior tibial artery waveforms are biphasic. Right Segmental Pressures Right brachial= 139mmHg. Right posterior tibial artery = 53mmHg. Right dorsalis pedis artery = 93mmHg. The right dorsalis pedis waveforms are monophasic. The right posterior tibial artery waveforms are monophasic. Indices The right ankle brachial index by the dorsalis pedis is 0.67. The right ankle brachial index by the posterior tibial artery is 0.38. The left ankle brachial index by the dorsalis pedis is 0.89. The left ankle brachial index by the posterior tibial artery is 1.18. The left digital-brachial index is 0.57. VL/Ankle Brachial Index Interpretation Summary Right HERNESTO 0.67, moderate arterial insufficiency. Doppler/PVR waveforms of the r ight ankle moderately diminished at rest. Left HERNESTO 1.18, normal. Doppler/PVR waveforms of the left ankle mildly diminishe d at rest. Ordering Physician: Noemí Amos Referring Physician: Saurabh Hernandez Chi Performed By: Maricel Delcid RVT
--- NOTE | 2024-10-06 18:47 | PCM.WC.PN ---
History of Present Illness Date of Service: 06/27/24 Chief Complaint: Ulcer right foot History of Wound: Patient presents to the wound care center today follow-up evaluation of full-thickness wounds to the right lower extremity. Patient was recently in the hospital for the past 2 weeks due to GI bleed was treated and discharge. He is following today for continued wound care to the right lower extremity. Progress of Wound: Mr. Coronel is a 73-year-old diabetic male presented with care center today for follow-up evaluation of full-thickness wound to the right transmetatarsal amputation site as well as right heel ulceration. He has been getting dressing changes with Santyl and leaving the amnion a skin graft substitute to the TMA site of the right lower extremity clean dry and intact. He has been resting changes at the facility. Blood sugars well-controlled. He denies trauma. Denies constitutional symptoms. No other pedal complaints at this time. Physical Exam Narrative Neurovascular status is unchanged. Dermatological: Full-thickness wound to the right transmetatarsal amputation site down to bone measuring 2.4 x 2.0 x 0.8 cm. Right heel full-thickness wound down to tendon measures 3.3 x 3.0 x 0.4 cm. There is no erythema or sign of infection to both wounds. Excisional debridement down to and including subcutaneous tissue, muscle and tendon to the right heel ulceration with a number 5 mm dermal curette without incident. Predebridement measurement was 3.0 x 2.9 x 0.2 cm. Postdebridement measurement is 3.3 x 3.0 x 0.4 cm. Excisional debridement down to and including subcutaneous tissue, fascia and bone with a number 3 mm dermal curette to the right lateral transmetatarsal amputation site full-thickness wound without incident.. Right measurement was 2.2 x 1.7 x 0.5 cm. Postdebridement measurement is 2.4 x 2.0 x 0.8 cm. Epi cord 2.0 x 3.0 graft was applied to the full-thickness wound to the transmetatarsal amputation site with 100% usage. This was the third application. There is no sign of infection. The graft was dressed with bolster dressing, dry sterile dressing and compression wrap. Musculoskeletal: No pain on palpation to the full-thickness wound to the right lower extremity. No pain with calf pressure. Assessment/Plan Assessment/Plan (1) Non-pressure chronic ulcer of other part of right foot with fat layer exposed: CODE(S): L97.512 - Non-pressure chronic ulcer of other part of right foot with fat layer exposed PLAN: Patient was examined and evaluated. All findings were discussed with the patient. All questions were answered to the patient satisfaction. Excisional debridement down to and including subcutaneous tissue, muscle and tendon to the right heel ulceration with a number 5 mm dermal curette without incident. Predebridement measurement was 3.0 x 2.9 x 0.2 cm. Postdebridement measurement is 3.3 x 3.0 x 0.4 cm. Excisional debridement down to and including subcutaneous tissue, fascia and bone with a number 3 mm dermal curette to the right lateral transmetatarsal amputation site full-thickness wound without incident.. Right measurement was 2.2 x 1.7 x 0.5 cm. Postdebridement measurement is 2.4 x 2.0 x 0.8 cm. Epi cord 2.0 x 3.0 graft was applied to the full-thickness wound to the transmetatarsal amputation site with 100% usage. This was the third application. There is no sign of infection. The graft was dressed with bolster dressing, dry sterile dressing and compression wrap. Patient will continue dressing changes to the heel as written. He will continue strict blood sugar control. Follow-up in 1 week. (2) Non-pressure chronic ulcer of other part of right foot with bone involvement without evidence of necrosis: CODE(S): L97.516 - Non-pressure chronic ulcer of other part of right foot with bone involvement without evidence of necrosis (3) Non-pressure chronic ulcer of right heel and midfoot with fat layer exposed: CODE(S): L97.412 - Non-pressure chronic ulcer of right heel and midfoot with fat layer exposed
== END | disposition home or self-care (01) ==
LOC: CVS 13:51
PROVIDERS: PCP Family Medicine Geriatric Medicine; Referring Provider Physician Assistant; Visit Provider Physician Assistant
DX: I73.9 Peripheral vascular disease, unspecified (principal); Z48.812 Encounter for surgical aftercare following surgery on the circulatory system
CPT/HCPCS: 93922; 93926

== ENCOUNTER 2024-07-17 10:00 | Outpatient (RCR) | payer MEDICARE, MEDICAID, SELFPAY ==
[2024-06-17 00:37] VITALS: BP 133/62; PULSE 58; RESP 18; TEMP 35.7; BMI 26.4
[2024-06-20 08:44] VITALS: BP 121/56; PULSE 58; RESP 18; TEMP 36; BMI 26.4
--- NOTE | 2024-06-20 10:18 | PCM.WC.PN ---
History of Present Illness Date of Service: 06/20/24 Chief Complaint: Ulcer right foot History of Wound: This patient presents to the wound healing center today for follow-up of ulcer to right foot with area of open surgical site. Patient is status post debridement of all nonviable, infected, necrotic soft tissue and bone of the right foot with open right hallux amputation performed on 07/18/2019. Patient also had a vascular procedure performed by Dr. Shah to try and reestablish better blood flow to the lower extremity. Following patient's discharge from the hospital he is been at a [facility] where he has had a wound VAC applied to the area that is to be changed 3 times a week. Patient currently feels well. Patient denies any feelings of nausea, vomiting, fever, chills. Subjective Subjective Mr. Mathew is a 73-year-old diabetic male presented wound care center today for follow-up evaluation of multiple full-thickness wounds to the right lower extremity. Patient has kept his blood sugar well-controlled. He is getting dressing changes per orders at the [facility] facility. He denies any pain to the right lower extremity. Denies trauma. Denies constitutional symptoms. No other pedal complaints at this time. Objective Data Objective Data Vital Signs: Vital Signs Temp Pulse Resp BP O2 Del Method 96.8 F L 58 L 18 121/56 H Room Air 06/20/24 08:44 06/20/24 08:44 06/20/24 08:44 06/20/24 08:44 06/20/24 08:44 Oxygen Delivery Method Room Air Weight: 86.183 kg Body Mass Index (BMI) 26.4 Physical Exam Narrative Vascular: DP and PT pulses are palpable to the right lower extremity. CFT is brisk to the flap to the right foot. Skin temperature great is warm to warm from proximal ankles to distal digits. Skin turgor is within normal limits. Neurological: Light touch intact. Patient does not respond to painful stimuli. Dermatological: The 4 full-thickness ulceration. Right transmetatarsal amputation stump medially measures 0.7 x 0.7 x 0.1 cm. Right transmetatarsal amputation stump wound measures 2.2 x 2.5 x 0.7 cm. Negative probe to bone. No drainage no sign of infection. The right proximal west is a sanguinous crust stable with no sign of infection. Left heel full-thickness wound measures 3.4 x 3.5 x 0.2 cm. All wounds are stable. Excisional debridement down to including subcutaneous tissue of the right transmetatarsal amputation full-thickness wound on the medial side with a number 5 mm dermal curette without incident. Predebridement measurement was sanguinous crust. Postdebridement measurement is 0.7 x 0.7 x 0.1 cm. Excisional debridement down to and including subcutaneous tissue to the right TMA full-thickness ulceration with a number 5 mm dermal curette without incident. Predebridement measurement was 2.0 x 2.3 x 0.5 cm. Postdebridement measurement is 2.2 x 2.5 x 0.7 cm. Excisional debridement down to and including subcutaneous tissue of the right posterior heel with a #15 blade and pickup without incident. Predebridement measurement was 3.2 x 3.4 x 0.1 cm. Postdebridement measurement is 3.4 x 3.5 x 0.2 cm. EpiCord 2.0 x 3.0 cm graft was applied to the right full-thickness ulceration to the TMA site with 100% use. Second application. The graft site was free and clear of any infection. The wound/skin graft substitute was dressed with nonadherent bandage secured in place with Steri-Strips followed by bolster dressing as well as a single Tubigrip compression bandage donned to the right lower extremity. Musculoskeletal:. Muscle strength is 5 out of 5 in all quadrants to the right lower extremity. No pain to palpation to the full-thickness wounds to the right lower extremity. No pain with calf pressure. Debridement Note Debridement Note Debridement Free Text: Excisional debridement down to including subcutaneous tissue of the right transmetatarsal amputation full-thickness wound on the medial side with a number 5 mm dermal curette without incident. Predebridement measurement was sanguinous crust. Postdebridement measurement is 0.7 x 0.7 x 0.1 cm. Excisional debridement down to and including subcutaneous tissue to the right TMA full-thickness ulceration with a number 5 mm dermal curette without incident. Predebridement measurement was 2.0 x 2.3 x 0.5 cm. Postdebridement measurement is 2.2 x 2.5 x 0.7 cm. Excisional debridement down to and including subcutaneous tissue of the right posterior heel with a #15 blade and pickup without incident. Predebridement measurement was 3.2 x 3.4 x 0.1 cm. Postdebridement measurement is 3.4 x 3.5 x 0.2 cm. EpiCord 2.0 x 3.0 cm graft was applied to the right full-thickness ulceration to the TMA site with 100% use. Second application. The graft site was free and clear of any infection. The wound/skin graft substitute was dressed with nonadherent bandage secured in place with Steri-Strips followed by bolster dressing as well as a single Tubigrip compression bandage donned to the right lower extremity. Post-Debridement Measurements and Additional Note: Post-Debridement Measurements/Treatment - Nurse 1 - General Ulcer Assessment Start: 06/20/24 08:33 Freq: Status: Active Protocol: DOLORES.LOWEXT Activity Type Activity Date Activity User E-sign Co-sign Detail Recorded Client Recorded Date Recorded By Document 06/20/24 08:44 [id number] 06/20/24 08:47 06/20/24 08:44 - Today's Visit Information Type of service Follow-up Visit (Physician/MATERIALS PLANNING MANAGER ) Arrival Mode Wheelchair Transfer Assistance Manual Patient Identification Verified (Name & Yes ) Patient Requires Transmission-Based No Precautions Height and Weight Body Mass Index (BMI) 26.4 BMI Classification Overweight Vital Signs Temperature (97.8 F-99.1 F) 96.8 F L Temperature Source Temporal Pulse Rate (60-100) 58 L Pulse Location Monitor Respiratory Rate (12-18) 18 Respiratory rate source Observation Oxygen Delivery Method Room Air Blood Pressure (90/60-120/80) 121/56 H Blood Pressure Mean (mm Hg) 77 Source Monitor Position Sitting Blood Pressure Location Left Arm History Since Last Visit- (Skip if this is Patient's initial visit) Have you changed medications since your No last visit? Any new allergies or adverse reactions No Had a fall/change in ADL's that may No increase risk of falls Signs or symptoms of abuse and/or No neglect since last visit Have you been in the hospital since your No last visit? Has dressing in place as prescribed Yes Has compression in place as prescribed N/A Has offloadiing in place as prescribed Yes Experienced any changes in pain level or No management Left Footwear Regular Shoe Right Footwear Surgical Shoe with pressure relief insole Pain Scale: 0-10 Numeric Is Patient Pain Free? Yes WC - Nurse 1 - General Ulcer Measurement Start: 06/20/24 08:33 Freq: Status: Active Protocol: Activity Type Activity Date Activity User E-sign Co-sign Detail Recorded Client Recorded Date Recorded By Document 06/20/24 08:44 GM [id number] 06/20/24 08:47 GM 06/20/24 08:44 Wound Center Nurse 1 #4 right heel -Combined with other wound No -Current Size (cm) - Length 2.2 -Current Size (cm) - Width 3.0 -Current Size (cm) - Depth 0.3 -Total Square Cm 6.60 -Date of Last Picture (Recall this 06/20/24 field) -Photo Taken Yes -Epithelialization Small 1-33% -Tunneling No -Undermining/Tunneling No -Circular Undermining No -Exudate Amt Small -Exudate Type Serosanguineous -Wound Margin Distinct, Outline Attached -Granulation Amt Small (1-33%) -Slough/Fibrin Yes -Necrosis Amt Small (1-33%) -Necrotic Tissue Type Adherent Slough -Texture (Donna-wound Skin Appearance) Assessed -Moisture (Donna-wound Skin Appearance) Assessed -Color (Donna-wound Skin Appearance) Assessed -Temperature (Donna-wound Skin No Abnormality Appearance) (Pt Warm) -Ulcer Cleansing Soap and Water -Foul Odor after Cleansing No -Anesthetic Used 5% Lidocaine Gel #3 right laterial foot -Current Size (cm) - Length 2.5 -Current Size (cm) - Width 2.2 -Current Size (cm) - Depth 0.5 -Total Square Cm 5.50 -Date of Last Picture (Recall this 06/20/24 field) -Photo Taken Yes -Epithelialization None Present -Tunneling No -Undermining/Tunneling No -Circular Undermining No -Exudate Type Yellow/Green -Wound Margin Distinct, Outline Attached -Granulation Amt Small (1-33%) -Slough/Fibrin Yes -Necrosis Amt Small (1-33%) -Necrotic Tissue Type Adherent Slough -Texture (Donna-wound Skin Appearance) Assessed -Moisture (Donna-wound Skin Appearance) Assessed -Color (Donna-wound Skin Appearance) Assessed -Temperature (Donna-wound Skin No Abnormality Appearance) (Pt Warm) -Ulcer Cleansing Soap and Water -Foul Odor after Cleansing No -Anesthetic Used 5% Lidocaine Gel #2 right west -Current Size (cm) - Length 1.1 -Current Size (cm) - Width 1.0 -Current Size (cm) - Depth 0.1 -Total Square Cm 1.10 -Date of Last Picture (Recall this 06/20/24 field) -Photo Taken Yes -Exudate Amt None Present -Wound Margin Distinct, Outline Attached -Texture (Donna-wound Skin Appearance) Assessed -Moisture (Donna-wound Skin Appearance) Assessed -Color (Donna-wound Skin Appearance) Assessed -Temperature (Donna-wound Skin No Abnormality Appearance) (Pt Warm) -Ulcer Cleansing Soap and Water -Foul Odor after Cleansing No -Anesthetic Used 5% Lidocaine Gel -Wound Comment(s) scabbed over WC - Nurse 2 - General Ulcer CM Notes Start: 06/20/24 08:33 Freq: Status: Active Protocol: Activity Type Activity Date Activity User E-sign Co-sign Detail Recorded Client Recorded Date Recorded By Document 06/20/24 09:07 NESS [id number] 06/20/24 09:11 NESS 06/20/24 09:07 Wound Center Nurse 2 4-right medial TMA -Time 09:09 -Correct Patient Yes -Correct Side, Site, Position Yes -Correct Procedure Yes -Procedure Performed Yes -Type of Procedure Debridement -Clinical Debridement Subcutaneous -Tissue Removed Subcutaneous -Post Debridement (cm) - Length 0.7 -Post Debridement (cm) - Width 0.7 -Post Debridement (cm) - Depth 0.1 -Total Square (Post) (cm) 0.49 -Area of Debridement (cm) - Length 0.7 -Area of Debridement (cm) - Width 0.7 -Total Square (Area) (cm) 0.49 -Tunneling No -Undermining/Tunneling No -Circular Undermining No -Wound/Ulcer Outcome Not Healed -Ulcer Cleansing Rinsed/ Irrigated with Saline -Foul Odor after Cleansing No -Bioengineered Tissue No -Bleeding Controlled with Pressure -Treatment Response Procedure Tolerated Well -Offloading No -Debridement - Subq, 1st 20sq cm Yes #4 right heel -Time 09:07 -Correct Patient Yes -Correct Side, Site, Position Yes -Correct Procedure Yes -Procedure Performed Yes -Type of Procedure Debridement -Clinical Debridement Subcutaneous -Tissue Removed Subcutaneous -Post Debridement (cm) - Length 3.4 -Post Debridement (cm) - Width 3.5 -Post Debridement (cm) - Depth 0.2 -Total Square (Post) (cm) 11.90 -Area of Debridement (cm) - Length 3.4 -Area of Debridement (cm) - Width 3.5 -Total Square (Area) (cm) 11.90 -Tunneling No -Undermining/Tunneling No -Circular Undermining No -Wound/Ulcer Outcome Not Healed -Ulcer Cleansing Rinsed/ Irrigated with Saline -Foul Odor after Cleansing No -Bioengineered Tissue No -Bleeding Controlled with Pressure -Treatment Response Procedure Tolerated Well -Offloading No -Debridement - Subq, 1st 20sq cm No #3 right laterial foot -Time 09:08 -Correct Patient Yes -Correct Side, Site, Position Yes -Correct Procedure Yes -Procedure Performed Yes -Type of Procedure Debridement -Clinical Debridement Subcutaneous -Tissue Removed Subcutaneous -Post Debridement (cm) - Length 2.2 -Post Debridement (cm) - Width 2.5 -Post Debridement (cm) - Depth 0.7 -Total Square (Post) (cm) 5.50 -Area of Debridement (cm) - Length 2.2 -Area of Debridement (cm) - Width 2.5 -Total Square (Area) (cm) 5.50 -Tunneling No -Undermining/Tunneling No -Circular Undermining No -Wound/Ulcer Outcome Not Healed -Ulcer Cleansing Rinsed/ Irrigated with Saline -Foul Odor after Cleansing No -Bioengineered Tissue Yes -Type of Bioengineered Tissue Epicord -Expiration Date 12/16/28 -Product Lot Number [id number] -Percent Used 100 -Lot number of Saline Used [id number] -Bleeding Controlled with Pressure -Treatment Response Procedure Tolerated Well -Offloading No -Debridement - Subq, 1st 20sq cm No -Apply Skin Sub - 1st 25 sq cm - Feet 1 -Epicord (per sq cm) 6 #2 right west -Correct Patient No -Correct Side, Site, Position No -Correct Procedure No -Procedure Performed No -Wound/Ulcer Outcome Not Healed Pain Scale: 0-10 Numeric Is Patient Pain Free? Yes WC - Nurse 3 - General Ulcer D/C NN Start: 06/20/24 08:33 Freq: Status: Active Protocol: Activity Type Activity Date Activity User E-sign Co-sign Detail Recorded Client Recorded Date Recorded By Document 06/20/24 09:13 JOHNSON [id number] 06/20/24 09:16 JOHNSON 06/20/24 09:13 Wound Care Center Nurse 3 4-right medial TMA -Primary Dressing Covered/Secured with Dry Gauze #4 right heel -Other Dressing betadine today, pt is to get santyl top with moistened gauze -Primary Dressing Covered/Secured with Dry Gauze #3 right laterial foot -Primary Dressing Covered/Secured with Dry Gauze #2 right west -Primary Dressing Applied C Hydrogel ($) -Primary Dressing Covered/Secured with Dry Gauze & Roll Gauze, Secured with Tape Right -Compression Wrap Donte Wrap Pain Scale: 0-10 Numeric Is Patient Pain Free? Yes WC - Visit Discharge Discharge Condition Stable Ambulatory Status Wheelchair Medication Reconcilliation completed & No provided to patient/care provider Clinical Summary of Care Provided Yes Assessment/Plan Assessment/Plan (1) Non-pressure chronic ulcer of other part of right foot with fat layer exposed: CODE(S): L97.512 - Non-pressure chronic ulcer of other part of right foot with fat layer exposed PLAN: Patient was examined and evaluated. All findings were discussed with the patient. All questions were answered to the patient's satisfaction. Excisional debridement down to including subcutaneous tissue of the right transmetatarsal amputation full-thickness wound on the medial side with a number 5 mm dermal curette without incident. Predebridement measurement was sanguinous crust. Postdebridement measurement is 0.7 x 0.7 x 0.1 cm. Excisional debridement down to and including subcutaneous tissue to the right TMA full-thickness ulceration with a number 5 mm dermal curette without incident. Predebridement measurement was 2.0 x 2.3 x 0.5 cm. Postdebridement measurement is 2.2 x 2.5 x 0.7 cm. Excisional debridement down to and including subcutaneous tissue of the right posterior heel with a #15 blade and pickup without incident. Predebridement measurement was 3.2 x 3.4 x 0.1 cm. Postdebridement measurement is 3.4 x 3.5 x 0.2 cm. EpiCord 2.0 x 3.0 cm graft was applied to the right full-thickness ulceration to the TMA site with 100% use. Second application. The graft site was free and clear of any infection. The wound/skin graft substitute was dressed with nonadherent bandage secured in place with Steri-Strips followed by bolster dressing as well as a single Tubigrip compression bandage donned to the right lower extremity. Prior to donning of the Tubigrip at the heel was dressed with Betadine soaked gauze with an order to dress the wound with Santyl nickel thick and cover with a sterile gauze and dry sterile dressing daily, and the west was dressed with dry sterile dressing. [facility] the [facility]. Follow-up at the wound care center with Dr. Lyons in 1 week. (2) Non-pressure chronic ulcer of right heel and midfoot with fat layer exposed: CODE(S): L97.412 - Non-pressure chronic ulcer of right heel and midfoot with fat layer exposed (3) Non-pressure chronic ulcer of other part of right lower leg with fat layer exposed: CODE(S): L97.812 - Non-pressure chronic ulcer of other part of right lower leg with fat layer exposed
--- NOTE | 2024-06-22 10:58 | WC ---
PHOTO 06/20/24 RIGHT TMA
--- NOTE | 2024-06-22 11:15 | WC ---
PHOTO 06/20/24 RIGHT NULL
--- NOTE | 2024-06-22 11:22 | WC ---
PHOTO 06/20/24 RIGHT HEEL
[2024-06-27 09:23] VITALS: BP 101/36; PULSE 70; RESP 18; TEMP 35.8; BMI 26.4
[2024-07-17 09:48] VITALS: BP 148/41; PULSE 73; RESP 16; TEMP 36.3; BMI 26.4
--- NOTE | 2024-07-17 12:34 | PN.PCM_ITS ---
History of Present Illness Date of Service: 07/17/24 Chief Complaint: Ulcer right foot History of Wound: This patient presents to the wound healing center today for follow-up of ulcer to right foot with area of open surgical site. Patient is status post debridement of all nonviable, infected, necrotic soft tissue and bone of the right foot with open right hallux amputation performed on 07/18/2019. Patient also had a vascular procedure performed by Dr. Shah to try and reestablish better blood flow to the lower extremity. Following patient's discharge from the hospital he is been at a halfway facility where he has had a wound VAC applied to the area that is to be changed 3 times a week. Patient currently feels well. Patient denies any feelings of nausea, vomiting, fever, chills. Subjective Subjective Mr. Mathew is a 73-year-old diabetic male presenting with concern today follow- up evaluation of full-thickness wound to the right lower extremity. Patient has left the dressing clean dry and intact since he has had graft placement to the transmetatarsal amputation full-thickness wound. His blood sugars well- controlled. He denies any pain right lower extremity. Denies trauma. Denies constitutional symptoms. No other pedal complaints at this time. Objective Data Objective Data Vital Signs: Vital Signs Temp Pulse Resp BP O2 Del Method 97.4 F L 73 16 148/41 H Room Air 07/17/24 09:48 07/17/24 09:48 07/17/24 09:48 07/17/24 09:48 07/17/24 09:48 Oxygen Delivery Method Room Air Weight: 86.183 kg Body Mass Index (BMI) 26.4 Physical Exam Narrative Vascular: DP and PT pulses are palpable to the right lower extremity. CFT is brisk to the flap to the right foot. Skin temperature great is warm to warm from proximal ankles to distal digits. Skin turgor is within normal limits. Neurological: Light touch intact. Patient does not respond to painful stimuli. Dermatological: Right transmetatarsal amputation stump medially measures 0.7 x 0.5 x 0.2 cm. Right transmetatarsal amputation stump wound measures 1.8 x 2.5 x 0.8 cm. Negative probe to bone. No drainage no sign of infection. Right heel full-thickness wound measures 3.2 x 2.0 x 0.3 cm. All wounds are stable. Excisional debridement down to including subcutaneous tissue of the right transmetatarsal amputation full-thickness wound on the medial side with a number 5 mm dermal curette without incident. Predebridement measurement was sanguinous crust. Postdebridement measurement is 0.7 x 0.5 x 0.2 cm. Excisional debridement down to and including subcutaneous tissue of the right posterior heel with a number 5 mm dermal curette without incident. Predebridement measurement was 3.0 x 1.8 x 0.2 cm. Postdebridement measurement is 3.2 x 2.0 x 0.3 cm. Excisional debridement down to and including subcutaneous tissue to the right TMA full-thickness ulceration with a number 5 mm dermal curette without incident. Predebridement measurement was 1.5 x 2.3 x 0.7 cm. Postdebridement measurement is 1.8 x 2.5 x 0.8 cm. EpiCord 2.0 x 3.0 cm graft was applied to the right full-thickness ulceration to the TMA site with 100% use. Third application. The graft site was free and clear of any infection. The wound/skin graft substitute was dressed with nonadherent bandage secured in place with Steri-Strips followed by bolster dressing as well as a single Tubigrip compression bandage donned to the right lower extremity. Musculoskeletal:. Muscle strength is 5 out of 5 in all quadrants to the right lower extremity. No pain to palpation to the full-thickness wounds to the right lower extremity. No pain with calf pressure. Debridement Note Debridement Note Debridement Free Text: Excisional debridement down to including subcutaneous tissue of the right transmetatarsal amputation full-thickness wound on the medial side with a number 5 mm dermal curette without incident. Predebridement measurement was sanguinous crust. Postdebridement measurement is 0.7 x 0.5 x 0.2 cm. Excisional debridement down to and including subcutaneous tissue of the right posterior heel with a number 5 mm dermal curette without incident. Predeb ridement measurement was 3.0 x 1.8 x 0.2 cm. Postdebridement measurement is 3.2 x 2.0 x 0.3 cm. Excisional debridement down to and including subcutaneous tissue to the right TMA full-thickness ulceration with a number 5 mm dermal curette without incident. Predebridement measurement was 1.5 x 2.3 x 0.7 cm. Postdebridement measurement is 1.8 x 2.5 x 0.8 cm. EpiCord 2.0 x 3.0 cm graft was applied to the right full-thickness ulceration to the TMA site with 100% use. Third application. The graft site was free and clear of any infection. The wound/skin graft substitute was dressed with n onadherent bandage secured in place with Steri-Strips followed by bolster dressing as well as a single Tubigrip compression bandage donned to the right lower extremity. Post-Debridement Measurements and Additional Note: Post-Debridement Measurements/Treatment - Nurse 1 - General Ulcer Assessment Start: 06/20/24 08:33 Freq: Status: Active Protocol: YOCASTA Activity Type Activity Date Activity User E-sign Co-sign Detail Recorded Client Recorded Date Recorded By Document 06/20/24 08:44 [id number] 06/20/24 08:47 Document 06/27/24 09:23 [id number] 06/27/24 09:35 Document 07/17/24 09:48 [facility] [id number] 07/17/24 10:01 BM 06/20/24 06/27/24 07/17/24 08:44 09:23 09:48 - Today's Visit Information Type of service Follow-up Visit Follow-up Visit Follow-up Visit (Physician/STEMMING MACHINE OPERATOR (Physician/STEMMING MACHINE OPERATOR (Physician/STEMMING MACHINE OPERATOR ) ) ) Arrival Mode Wheelchair Wheelchair Wheelchair Transfer Assistance Manual Other Transfer Assist (Other) standby Patient Identification Verified (Name & Yes Yes Yes ) Patient Requires Transmission-Based No No No Precautions Height and Weight Body Mass Index (BMI) 26.4 26.4 26.4 BMI Classification Overweight Overweight Overweight Vital Signs Temperature (97.8 F-99.1 F) 96.8 F L 96.4 F L 97.4 F L Temperature Source Temporal Temporal Temporal Pulse Rate (60-100) 58 L 70 73 Pulse Location Monitor Monitor Monitor Respiratory Rate (12-18) 18 18 16 Respiratory rate source Observation Observation Observation Oxygen Delivery Method Room Air Room Air Blood Pressure (90/60-120/80) 121/56 H 101/36 L 148/41 H Blood Pressure Mean (mm Hg) 77 57 76 Source Monitor Monitor Monitor Position Sitting Sitting Sitting Blood Pressure Location Left Arm Right Arm Left Arm History Since Last Visit- (Skip if this is Patient's initial visit) Have you changed medications since your No No No last visit? Any new allergies or adverse reactions No No No Had a fall/change in ADL's that may No No No increase risk of falls Signs or symptoms of abuse and/or No No No neglect since last visit Have you been in the hospital since your No No No last visit? Has dressing in place as prescribed Yes Yes Yes Has compression in place as prescribed N/A Yes N/A Has offloadiing in place as prescribed Yes Yes N/A Experienced any changes in pain level or No No No management Left Footwear Regular Shoe Slipper Regular Shoe Right Footwear Surgical Shoe No Footwear No Footwear with pressure relief insole Pain Scale: 0-10 Numeric Is Patient Pain Free? Yes Yes Yes WC - Nurse 1 - General Ulcer Measurement Start: 06/20/24 08:33 Freq: Status: Active Protocol: Activity Type Activity Date Activity User E-sign Co-sign Detail Recorded Client Recorded Date Recorded By Document 06/20/24 08:44 [id number] 06/20/24 08:47 Document 06/27/24 09:23 [id number] 06/27/24 09:35 Document 07/17/24 09:48 [facility] [id number] 07/17/24 10:01 [facility] 06/20/24 06/27/24 07/17/24 08:44 09:23 09:48 Wound Center Nurse 1 #2 right west -Combined with other wound No -Current Size (cm) - Length 1.1 0.1 -Current Size (cm) - Width 1.0 0.1 -Current Size (cm) - Depth 0.1 0.1 -Total Square Cm 1.10 0.01 -Date of Last Picture (Recall this 06/20/24 field) -Photo Taken Yes Yes -Epithelialization Large 67-100% -Tunneling No -Undermining/Tunneling No -Circular Undermining No -Exudate Amt None Present None Present -Wound Margin Distinct, Flat & Intact Outline Attached -Granulation Amt Large (67-100%) -Granulation Quality [place] -Slough/Fibrin No -Structure Exposed N/A -Texture (Donna-wound Skin Appearance) Assessed Assessed -Moisture (Donna-wound Skin Appearance) Assessed Assessed,Dry/ Scaly -Color (Donna-wound Skin Appearance) Assessed Assessed -Temperature (Donna-wound Skin No Abnormality No Abnormality Appearance) (Pt Warm) (Pt Warm) -Tenderness on Palpation (Donna-wound No Skin Appearance) -Ulcer Cleansing Soap and Water Wound Cleanser -Foul Odor after Cleansing No No -Anesthetic Used 5% Lidocaine 5% Lidocaine Gel Gel -Wound Comment(s) scabbed over 4-right medial TMA -Combined with other wound No No -Current Size (cm) - Length 0.9 1 -Current Size (cm) - Width 0.3 0.5 -Current Size (cm) - Depth 0.1 0.1 -Total Square Cm 0.27 0.5 -Date of Last Picture (Recall this 07/17/24 field) -Photo Taken Yes Yes -Epithelialization Large 67-100% None Present -Tunneling No No -Undermining/Tunneling No No -Circular Undermining No No -Exudate Amt None Present None Present -Wound Margin Indistinct, Non Distinct, -Visible Outline Attached -Granulation Amt None Present (0 None Present (0 %) %) -Slough/Fibrin Yes Yes -Necrosis Amt Large (67-100%) Large (67-100%) -Necrotic Tissue Type Adherent Slough Eschar -Structure Exposed N/A -Texture (Donna-wound Skin Appearance) Assessed Assessed, Scarring -Moisture (Donna-wound Skin Appearance) Assessed,Dry/ Assessed,Dry/ Scaly Scaly -Color (Donna-wound Skin Appearance) Assessed Assessed -Temperature (Donna-wound Skin No Abnormality No Abnormality Appearance) (Pt Warm) (Pt Warm) -Tenderness on Palpation (Donna-wound No No Skin Appearance) -Ulcer Cleansing Wound Cleanser Soap and Water -Foul Odor after Cleansing No No -Anesthetic Used 5% Lidocaine 5% Lidocaine Gel Gel #4 right heel -Combined with other wound No No No -Current Size (cm) - Length 2.2 3.1 3.2 -Current Size (cm) - Width 3.0 3.2 2.8 -Current Size (cm) - Depth 0.3 0.3 0.3 -Total Square Cm 6.60 9.92 8.96 -Date of Last Picture (Recall this 06/20/24 07/17/24 field) -Photo Taken Yes Yes Yes -Epithelialization Small 1-33% Small 1-33% -Tunneling No No No -Undermining/Tunneling No No No -Circular Undermining No No No -Exudate Amt Small Medium Medium -Exudate Type Serosanguineous Serosanguineous Serosanguineous -Wound Margin Distinct, Flat & Intact Thickened Outline Attached -Granulation Amt Small (1-33%) Medium (34-66%) Small (1-33%) -Granulation Quality [place] -Slough/Fibrin Yes Yes Yes -Necrosis Amt Small (1-33%) Small (1-33%) Large (67-100%) -Necrotic Tissue Type Adherent Slough Adherent Slough Adherent Slough -Structure Exposed N/A -Texture (Donna-wound Skin Appearance) Assessed Assessed Assessed, Scarring -Moisture (Donna-wound Skin Appearance) Assessed Assessed,Dry/ Assessed, Scaly Weeping -Color (Donna-wound Skin Appearance) Assessed Assessed Assessed -Temperature (Donna-wound Skin No Abnormality No Abnormality No Abnormality Appearance) (Pt Warm) (Pt Warm) (Pt Warm) -Tenderness on Palpation (Donna-wound No No Skin Appearance) -Ulcer Cleansing Soap and Water Wound Cleanser Soap and Water -Foul Odor after Cleansing No No No -Anesthetic Used 5% Lidocaine 5% Lidocaine 5% Lidocaine Gel Gel Gel #3 right lateral foot -Combined with other wound No No -Current Size (cm) - Length 2.5 2.5 2.9 -Current Size (cm) - Width 2.2 2.6 1.9 -Current Size (cm) - Depth 0.5 0.4 0.6 -Total Square Cm 5.50 6.50 5.51 -Date of Last Picture (Recall this 06/20/24 07/17/24 field) -Photo Taken Yes Yes Yes -Epithelialization None Present Medium 34-66% -Tunneling No No No -Undermining/Tunneling No No -Circular Undermining No No -Exudate Amt Medium Medium -Exudate Type Yellow/Green Serosanguineous Serosanguineous -Wound Margin Distinct, Flat & Intact Distinct, Outline Outline Attached Attached -Granulation Amt Small (1-33%) Medium (34-66%) Medium (34-66%) -Granulation Quality [place] -Slough/Fibrin Yes Yes Yes -Necrosis Amt Small (1-33%) Small (1-33%) Medium (34-66%) -Necrotic Tissue Type Adherent Slough Adherent Slough Adherent Slough -Structure Exposed N/A -Texture (Donna-wound Skin Appearance) Assessed Assessed Assessed, Scarring -Moisture (Donna-wound Skin Appearance) Assessed Assessed,Dry/ Assessed Scaly -Color (Donna-wound Skin Appearance) Assessed Assessed Assessed -Temperature (Donna-wound Skin No Abnormality No Abnormality No Abnormality Appearance) (Pt Warm) (Pt Warm) (Pt Warm) -Tenderness on Palpation (Donna-wound No No Skin Appearance) -Ulcer Cleansing Soap and Water Wound Cleanser Soap and Water -Foul Odor after Cleansing No No No -Anesthetic Used 5% Lidocaine 5% Lidocaine 5% Lidocaine Gel Gel Gel Lower Limb Edema Present NA WC - Nurse 2 - General Ulcer CM Notes Start: 06/20/24 08:33 Freq: Status: Active Protocol: Activity Type Activity Date Activity User E-sign Co-sign Detail Recorded Client Recorded Date Recorded By Document 06/20/24 09:07 [id number] 06/20/24 09:11 Document 06/27/24 09:38 [id number] 06/27/24 09:51 Document 07/17/24 10:21 [id number] 07/17/24 10:30 06/20/24 06/27/24 07/17/24 09:07 09:38 10:21 Wound Center Nurse 2 #2 right west -Correct Patient No No -Correct Side, Site, Position No No -Correct Procedure No No -Procedure Performed No No -Post Debridement (cm) - Length 0 -Post Debridement (cm) - Width 0 -Post Debridement (cm) - Depth 0 -Total Square (Post) (cm) 0 -Area of Debridement (cm) - Length 0 -Area of Debridement (cm) - Width 0 -Total Square (Area) (cm) 0 -Wound/Ulcer Outcome Not Healed Healed- Epithelialized 4-right medial TMA -Time 09:09 09:39 10:21 -Correct Patient Yes No Yes -Correct Side, Site, Position Yes No Yes -Correct Procedure Yes No Yes -Procedure Performed Yes No Yes -Type of Procedure Debridement Debridement -Clinical Debridement Subcutaneous Subcutaneous -Tissue Removed Subcutaneous Subcutaneous -Post Debridement (cm) - Length 0.7 0.1 0.7 -Post Debridement (cm) - Width 0.7 0.1 0.5 -Post Debridement (cm) - Depth 0.1 0.1 0.2 -Total Square (Post) (cm) 0.49 0.01 0.35 -Area of Debridement (cm) - Length 0.7 0.1 0.7 -Area of Debridement (cm) - Width 0.7 0.1 0.5 -Total Square (Area) (cm) 0.49 0.01 0.35 -Tunneling No No No -Undermining/Tunneling No No No -Circular Undermining No No No -Wound/Ulcer Outcome Not Healed Not Healed Not Healed -Ulcer Cleansing Rinsed/ Rinsed/ Rinsed/ Irrigated with Irrigated with Irrigated with Saline Saline Saline -Foul Odor after Cleansing No No No -Bioengineered Tissue No No No -Bleeding Controlled with Pressure Pressure Pressure -Treatment Response Procedure Procedure Procedure Tolerated Well Tolerated Well Tolerated Well -Offloading No No No -Debridement - Subq, 1st 20sq cm Yes Yes #4 right heel -Time 09:07 09:42 10:25 -Correct Patient Yes Yes Yes -Correct Side, Site, Position Yes Yes Yes -Correct Procedure Yes Yes Yes -Procedure Performed Yes Yes Yes -Type of Procedure Debridement Debridement Debridement -Clinical Debridement Subcutaneous Muscle / Fascia Muscle / Fascia -Tissue Removed Subcutaneous Tendon Muscle -Post Debridement (cm) - Length 3.4 3.3 3.2 -Post Debridement (cm) - Width 3.5 3.0 2.0 -Post Debridement (cm) - Depth 0.2 0.4 0.3 -Total Square (Post) (cm) 11.90 9.90 6.40 -Area of Debridement (cm) - Length 3.4 3.3 3.2 -Area of Debridement (cm) - Width 3.5 3.0 2.0 -Total Square (Area) (cm) 11.90 9.90 6.40 -Tunneling No No No -Undermining/Tunneling No No No -Circular Undermining No No No -Wound/Ulcer Outcome Not Healed Not Healed Not Healed -Ulcer Cleansing Rinsed/ Rinsed/ Rinsed/ Irrigated with Irrigated with Irrigated with Saline Saline Saline -Foul Odor after Cleansing No No No -Bioengineered Tissue No No No -Bleeding Controlled with Pressure Pressure Pressure -Treatment Response Procedure Procedure Procedure Tolerated Well Tolerated Well Tolerated Well -Offloading No No No -Debridement - Subq, 1st 20sq cm No No -Debridement - Muscle / Fascia, 1st Yes Yes 20sq cm #3 right lateral foot -Time 09:08 09:42 10:28 -Correct Patient Yes Yes Yes -Correct Side, Site, Position Yes Yes Yes -Correct Procedure Yes Yes Yes -Procedure Performed Yes Yes Yes -Type of Procedure Debridement Debridement Debridement -Clinical Debridement Subcutaneous Bone Muscle / Fascia -Tissue Removed Subcutaneous Non-viable Muscle,Fascia tissue -Post Debridement (cm) - Length 2.2 2.4 1.8 -Post Debridement (cm) - Width 2.5 2.0 2.5 -Post Debridement (cm) - Depth 0.7 0.8 0.8 -Total Square (Post) (cm) 5.50 4.80 4.50 -Area of Debridement (cm) - Length 2.2 2.4 1.8 -Area of Debridement (cm) - Width 2.5 2.0 2.5 -Total Square (Area) (cm) 5.50 4.80 4.50 -Tunneling No No No -Undermining/Tunneling No No No -Circular Undermining No No No -Wound/Ulcer Outcome Not Healed Not Healed Not Healed -Ulcer Cleansing Rinsed/ Rinsed/ Rinsed/ Irrigated with Irrigated with Irrigated with Saline Saline Saline -Foul Odor after Cleansing No No No -Bioengineered Tissue Yes Yes No -Type of Bioengineered Tissue Epicord Epicord Epicord -Expiration Date 12/16/28 07/23/28 12/16/28 -Product Lot Number [id number] -Percent Used 100 100 100 -Lot number of Saline Used [id number] -Bleeding Controlled with Pressure Pressure Pressure -Treatment Response Procedure Procedure Procedure Tolerated Well Tolerated Well Tolerated Well -Offloading No No No -Debridement - Subq, 1st 20sq cm No No -Debridement - Muscle / Fascia, 1st No 20sq cm -Debridement - Bone, 1st 20sq cm No -Apply Skin Sub - 1st 25 sq cm - Feet 1 1 1 -Epicord (per sq cm) 6 6 6 Pain Scale: 0-10 Numeric Is Patient Pain Free? Yes Yes Yes WC - Nurse 3 - General Ulcer D/C NN Start: 06/20/24 08:33 Freq: Status: Active Protocol: Activity Type Activity Date Activity User E-sign Co-sign Detail Recorded Client Recorded Date Recorded By Document 06/20/24 09:13 [id number] 06/20/24 09:16 KW Document 06/27/24 10:03 KW [id number] 06/27/24 10:04 KW Document 07/17/24 10:38 [facility] [id number] 07/17/24 10:39 [facility] 06/20/24 06/27/24 07/17/24 09:13 10:03 10:38 Wound Care Center Nurse 3 #2 right west -Primary Dressing Applied C Hydrogel ($) -Primary Dressing Covered/Secured with Dry Gauze & Roll Gauze, Secured with Tape 4-right medial TMA -Other Dressing abd -Primary Dressing Covered/Secured with Dry Gauze Dry Gauze Dry Gauze & Roll Gauze, Secured with Tape #4 right heel -Ulcer Cleansing Rinsed/ Irrigated with Saline -Foul Odor after Cleansing No -Other Dressing betadine today, hydrogel today, hydrogel pt is to get santyl once santyl top with back to moistened facility gauze -Primary Dressing Covered/Secured with Dry Gauze Dry Gauze Dry Gauze & Roll Gauze, Secured with Tape -Other Covering heel hat #3 right lateral foot -Primary Dressing Covered/Secured with Dry Gauze Dry Gauze & Dry Gauze & Roll Gauze, Roll Gauze, Secured with Secured with Tape Tape Right -Compression Wrap Donte Wrap Donte Wrap Donte Wrap -Other to secure Treatment Response Procedure Tolerated Well Pain Scale: 0-10 Numeric Is Patient Pain Free? Yes Yes Yes WC - Visit Discharge Discharge Condition Stable Stable Stable Ambulatory Status Wheelchair Wheelchair Wheelchair Transportation ecf Medication Reconcilliation completed & No No provided to patient/care provider Clinical Summary of Care Provided Yes Yes Facility [facility] Assessment/Plan Assessment/Plan (1) Non-pressure chronic ulcer of other part of right foot with fat layer exposed: CODE(S): L97.512 - Non-pressure chronic ulcer of other part of right foot with fat layer exposed PLAN: Patient was examined and evaluated. All findings were discussed with the patient. All questions were answered to the patient's satisfaction. Excisional debridement down to including subcutaneous tissue of the right transmetatarsal amputation full-thickness wound on the medial side with a number 5 mm dermal curette without incident. Predebridement measurement was sanguinous crust. Postdebridement measurement is 0.7 x 0.5 x 0.2 cm. Excisional debridement down to and including subcutaneous tissue of the right posterior heel with a number 5 mm dermal curette without incident. Predebridement measurement was 3.0 x 1.8 x 0.2 cm. Postdebridement measurement is 3.2 x 2.0 x 0.3 cm. Excisional debridement down to and including subcutaneous tissue to the right TMA full-thickness ulceration with a number 5 mm dermal curette without incident. Predebridement measurement was 1.5 x 2.3 x 0.7 cm. Postdebridement measurement is 1.8 x 2.5 x 0.8 cm. EpiCord 2.0 x 3.0 cm graft was applied to the right full-thickness ulceration to the TMA site with 100% use. Third application. The graft site was free and clear of any infection. The wound/skin graft substitute was dressed with nonadherent bandage secured in place with Steri-Strips followed by bolster dressing as well as a single Tubigrip compression bandage donned to the right lower extremity. Prior to donning of the Tubigrip at the heel was dressed with Betadine soaked gauze with an order to dress the wound with Santyl nickel thick and cover with a sterile gauze and dry sterile dressing daily, and the west was dressed with dry sterile dressing. Wound care orders were updated for the [facility] facility. Follow-up at the wound care center with Dr. Lyons in 1 week. (2) Non-pressure chronic ulcer of right heel and midfoot with necrosis of muscle: CODE(S): L97.413 - Non-pressure chronic ulcer of right heel and midfoot with necrosis of muscle
--- NOTE | 2024-07-23 11:32 | WC ---
PHOTO 07/17/24 RIGHT [facility]
--- NOTE | 2024-07-23 11:33 | WC ---
PHOTO 07/17/24 RIGHT HEEL
--- NOTE | 2024-07-23 11:33 | WC ---
PHOTO 07/17/24 RIGHT LATERAL FOOT
== END 2024-07-17 23:59 | disposition home or self-care (01) ==
LOC: WC 10:00
PROVIDERS: PCP Family Medicine Geriatric Medicine; Referring Provider Podiatrist Foot & Ankle Surgery; Visit Provider Podiatrist Foot & Ankle Surgery
DX: E11.621 Type 2 diabetes mellitus with foot ulcer (principal); L97.413 Non-pressure chronic ulcer of right heel and midfoot with necrosis of muscle; L97.512 Non-pressure chronic ulcer of other part of right foot with fat layer exposed; L97.412 Non-pressure chronic ulcer of right heel and midfoot with fat layer exposed; L97.812 Non-pressure chronic ulcer of other part of right lower leg with fat layer exposed
CPT/HCPCS: 11042; 11043; 15275; Q4187

== ENCOUNTER 2024-08-01 10:00 | Outpatient (RCR) | payer MEDICARE, MEDICAID, SELFPAY ==
[2024-07-18 00:20] VITALS: BP 133/62; PULSE 58; RESP 18; TEMP 35.7; BMI 26.4
[2024-07-25 10:14] VITALS: BP 119/47; PULSE 66; RESP 14; TEMP 36.7; BMI 26.4
--- NOTE | 2024-07-25 12:15 | PCM.WC.PN ---
History of Present Illness Date of Service: 07/17/24 Chief Complaint: Ulcer right foot History of Wound: This patient presents to the wound healing center today for follow-up of ulcer to right foot with area of open surgical site. Patient is status post debridement of all nonviable, infected, necrotic soft tissue and bone of the right foot with open right hallux amputation performed on 07/18/2019. Patient also had a vascular procedure performed by Dr. Shah to try and reestablish better blood flow to the lower extremity. Following patient's discharge from the hospital he is been at a [facility] where he has had a wound VAC applied to the area that is to be changed 3 times a week. Patient currently feels well. Patient denies any feelings of nausea, vomiting, fever, chills. Subjective Subjective Mr. Mathew is a 73-year-old diabetic male presenting with concern today follow-up evaluation of full-thickness wound to the right lower extremity. Patient has left the dressing clean dry and intact since he has had graft placement to the transmetatarsal amputation full-thickness wound. His blood sugars well-controlled. He denies any pain right lower extremity. Denies trauma. Denies constitutional symptoms. No other pedal complaints at this time. Objective Data Objective Data Vital Signs: Vital Signs Temp Pulse Resp BP 98.1 F 66 14 119/47 L 07/25/24 10:14 07/25/24 10:14 07/25/24 10:14 07/25/24 10:14 Weight: 86.183 kg Body Mass Index (BMI) 26.4 Physical Exam Narrative Vascular: DP and PT pulses are palpable to the right lower extremity. CFT is brisk to the flap to the right foot. Skin temperature great is warm to warm from proximal ankles to distal digits. Skin temperature and turgor is within normal limits. Neurological: Light touch intact. Patient does not respond to painful stimuli. Dermatological: Right transmetatarsal amputation stump medially is now healed. Right transmetatarsal amputation stump wound measures 2.0 x 1.7 x 0.8 cm. Negative probe to bone. No drainage no sign of infection. Right heel full-thickness wound measures 3.4 x 1.8 x 0.3 cm. All wounds are stable. Excisional debridement down to and including subcutaneous tissue of the right posterior heel with a number 5 mm dermal curette without incident. Predebridement measurement was 3.2 x 1.7 x 0.2 cm. Postdebridement measurement is 3.4 x 1.8 x 0.3 cm. Excisional debridement down to and including subcutaneous tissue to the right TMA full-thickness ulceration with a number 5 mm dermal curette without incident. Predebridement measurement was 1.8 x 1.5 x 0.5 cm. Postdebridement measurement is 2.0 x 1.7 x 0.7 cm. Musculoskeletal:. Muscle strength is 5 out of 5 in all quadrants to the right lower extremity. No pain to palpation to the full-thickness wounds to the right lower extremity. No pain with calf pressure. Debridement Note Debridement Note Debridement Free Text: Excisional debridement down to and including subcutaneous tissue of the right posterior heel with a number 5 mm dermal curette without incident. Predebridement measurement was 3.2 x 1.7 x 0.2 cm. Postdebridement measurement is 3.4 x 1.8 x 0.3 cm. Excisional debridement down to and including subcutaneous tissue to the right TMA full-thickness ulceration with a number 5 mm dermal curette without incident. Predebridement measurement was 1.8 x 1.5 x 0.5 cm. Postdebridement measurement is 2.0 x 1.7 x 0.7 cm. Post-Debridement Measurements and Additional Note: Post-Debridement Measurements/Treatment - Nurse 1 - General Ulcer Assessment Start: 07/25/24 10:14 Freq: Status: Active Protocol: [email or web address].[email or web address] Activity Type Activity Date Activity User E-sign Co-sign Detail Recorded Client Recorded Date Recorded By Document 07/25/24 10:14 [id number] 07/25/24 10:24 ML 07/25/24 10:14 - Today's Visit Information Type of service Follow-up Visit (Physician/[employer] ) Arrival Mode Wheelchair Transfer Assistance None Patient Identification Verified (Name & Yes ) Patient Requires Transmission-Based No Precautions Finger Stick Blood Sugar(mg/dl) (if 220 indicated): Blood Sugar Stated by Patient Height and Weight Body Mass Index (BMI) 26.4 BMI Classification Overweight Vital Signs Temperature (97.8 F-99.1 F) 98.1 F Temperature Source Temporal Pulse Rate (60-100) 66 Pulse Location Monitor Respiratory Rate (12-18) 14 Blood Pressure (90/60-120/80) 119/47 L Blood Pressure Mean (mm Hg) 71 Source Monitor Position Sitting Blood Pressure Location Right Arm History Since Last Visit- (Skip if this is Patient's initial visit) Have you changed medications since your No last visit? Any new allergies or adverse reactions No Had a fall/change in ADL's that may No increase risk of falls Signs or symptoms of abuse and/or No neglect since last visit Have you been in the hospital since your No last visit? Has dressing in place as prescribed Yes Has compression in place as prescribed Yes Has offloadiing in place as prescribed N/A Experienced any changes in pain level or No management Pain Scale: 0-10 Numeric Is Patient Pain Free? Yes WC - Nurse 1 - General Ulcer Measurement Start: 07/25/24 10:14 Freq: Status: Active Protocol: Activity Type Activity Date Activity User E-sign Co-sign Detail Recorded Client Recorded Date Recorded By Document 07/25/24 10:14 ML [id number] 07/25/24 10:24 ML 07/25/24 10:14 Wound Center Nurse 1 4-right medial TMA -Current Size (cm) - Length 0.1 -Current Size (cm) - Width 0.1 -Current Size (cm) - Depth 0.1 -Total Square Cm 0.01 -Exudate Amt Small -Exudate Type Serous -Wound Margin Thickened & Rolled Under -Granulation Amt Small (1-33%) -Slough/Fibrin Yes -Necrosis Amt Medium (34-66%) -Necrotic Tissue Type Adherent Slough -Texture (Donna-wound Skin Appearance) Assessed -Moisture (Donna-wound Skin Appearance) Assessed -Color (Donna-wound Skin Appearance) Assessed -Temperature (Donna-wound Skin No Abnormality Appearance) (Pt Warm) -Tenderness on Palpation (Donna-wound No Skin Appearance) -Ulcer Cleansing Soap and Water -Foul Odor after Cleansing No -Anesthetic Used 5% Lidocaine Gel #4 right heel -Current Size (cm) - Length 3.2 -Current Size (cm) - Width 2.4 -Current Size (cm) - Depth 0.3 -Total Square Cm 7.68 -Exudate Amt Medium -Exudate Type Serosanguineous -Wound Margin Thickened & Rolled Under -Granulation Amt Small (1-33%) -Slough/Fibrin Yes -Necrosis Amt Medium (34-66%) -Necrotic Tissue Type Adherent Slough -Texture (Donna-wound Skin Appearance) Assessed -Moisture (Donna-wound Skin Appearance) Assessed -Color (Donna-wound Skin Appearance) Assessed -Temperature (Donna-wound Skin No Abnormality Appearance) (Pt Warm) -Tenderness on Palpation (Donna-wound No Skin Appearance) -Ulcer Cleansing Soap and Water -Foul Odor after Cleansing No -Anesthetic Used 5% Lidocaine Gel #3 right lateral foot -Current Size (cm) - Length 2 -Current Size (cm) - Width 1.5 -Current Size (cm) - Depth 0.6 -Total Square Cm 3.0 -Exudate Amt Medium -Exudate Type Serosanguineous -Wound Margin Thickened & Rolled Under -Granulation Amt Medium (34-66%) -Slough/Fibrin Yes -Necrosis Amt Medium (34-66%) -Necrotic Tissue Type Adherent Slough -Texture (Donna-wound Skin Appearance) Assessed -Moisture (Donna-wound Skin Appearance) Assessed -Color (Donna-wound Skin Appearance) Assessed -Temperature (Donna-wound Skin No Abnormality Appearance) (Pt Warm) -Tenderness on Palpation (Donna-wound No Skin Appearance) -Ulcer Cleansing Soap and Water -Foul Odor after Cleansing No -Anesthetic Used 5% Lidocaine Gel WC - Nurse 2 - General Ulcer CM Notes Start: 07/25/24 10:14 Freq: Status: Active Protocol: Activity Type Activity Date Activity User E-sign Co-sign Detail Recorded Client Recorded Date Recorded By Document 07/25/24 10:46 NESS [id number] 07/25/24 10:52 NESS 07/25/24 10:46 Wound Center Nurse 2 4-right medial TMA -Correct Patient No -Correct Side, Site, Position No -Correct Procedure No -Procedure Performed No -Post Debridement (cm) - Length 0 -Post Debridement (cm) - Width 0 -Post Debridement (cm) - Depth 0 -Total Square (Post) (cm) 0 -Area of Debridement (cm) - Length 0 -Area of Debridement (cm) - Width 0 -Total Square (Area) (cm) 0 -Wound/Ulcer Outcome Healed- Epithelialized #4 right heel -Time 10:48 -Correct Patient Yes -Correct Side, Site, Position Yes -Correct Procedure Yes -Procedure Performed Yes -Type of Procedure Debridement -Clinical Debridement Muscle / Fascia -Tissue Removed Muscle -Post Debridement (cm) - Length 3.4 -Post Debridement (cm) - Width 0.8 -Post Debridement (cm) - Depth 0.3 -Total Square (Post) (cm) 2.72 -Area of Debridement (cm) - Length 3.4 -Area of Debridement (cm) - Width 0.8 -Total Square (Area) (cm) 2.72 -Tunneling No -Undermining/Tunneling No -Circular Undermining No -Wound/Ulcer Outcome Not Healed -Ulcer Cleansing Rinsed/ Irrigated with Saline -Foul Odor after Cleansing No -Bioengineered Tissue No -Bleeding Controlled with Pressure -Treatment Response Procedure Tolerated Well -Offloading No -Debridement - Muscle / Fascia, 1st Yes 20sq cm #3 right lateral foot -Time 10:48 -Correct Patient Yes -Correct Side, Site, Position Yes -Correct Procedure Yes -Procedure Performed Yes -Type of Procedure Debridement -Clinical Debridement Muscle / Fascia -Tissue Removed Muscle -Post Debridement (cm) - Length 2.0 -Post Debridement (cm) - Width 1.7 -Post Debridement (cm) - Depth 0.8 -Total Square (Post) (cm) 3.40 -Area of Debridement (cm) - Length 2.0 -Area of Debridement (cm) - Width 1.7 -Total Square (Area) (cm) 3.40 -Tunneling No -Undermining/Tunneling No -Circular Undermining No -Wound/Ulcer Outcome Not Healed -Ulcer Cleansing Rinsed/ Irrigated with Saline -Foul Odor after Cleansing No -Bioengineered Tissue No -Bleeding Controlled with Pressure -Treatment Response Procedure Tolerated Well -Offloading No -Debridement - Muscle / Fascia, 1st No 20sq cm Pain Scale: 0-10 Numeric Is Patient Pain Free? Yes WC - Nurse 3 - General Ulcer D/C NN Start: 07/25/24 10:14 Freq: Status: Active Protocol: Activity Type Activity Date Activity User E-sign Co-sign Detail Recorded Client Recorded Date Recorded By Document 07/25/24 11:08 KW [id number] 07/25/24 11:09 KW 07/25/24 11:08 Wound Care Center Nurse 3 #4 right heel -Other Dressing santyl, hydrogel today -Primary Dressing Covered/Secured with Dry Gauze #3 right lateral foot -Other Dressing dakins soaked gauze -Primary Dressing Covered/Secured with Dry Gauze & Roll Gauze, Secured with Tape Right -Compression Wrap Donte Wrap Pain Scale: 0-10 Numeric Is Patient Pain Free? Yes WC - Visit Discharge Discharge Condition Stable Ambulatory Status Wheelchair Medication Reconcilliation completed & No provided to patient/care provider Clinical Summary of Care Provided Yes Assessment/Plan Assessment/Plan (1) Non-pressure chronic ulcer of right heel and midfoot with necrosis of muscle: CODE(S): L97.413 - Non-pressure chronic ulcer of right heel and midfoot with necrosis of muscle PLAN: Patient was examined and evaluated. All findings were discussed with the patient. All questions were answered to the patient's satisfaction. Excisional debridement down to and including subcutaneous tissue of the right posterior heel with a number 5 mm dermal curette without incident. Predebridement measurement was 3.2 x 1.7 x 0.2 cm. Postdebridement measurement is 3.4 x 1.8 x 0.3 cm. Excisional debridement down to and including subcutaneous tissue to the right TMA full-thickness ulceration with a number 5 mm dermal curette without incident. Predebridement measurement was 1.8 x 1.5 x 0.5 cm. Postdebridement measurement is 2.0 x 1.7 x 0.7 cm. Right lower extremity were cleaned patted dry. Santyl nickel thick with moist saline soaked gauze to the right heel followed by Dakin solution soaked gauze to the lateral TMA full-thickness wound followed by dry sterile dressing and compression wrap. Patient was giving dressing changes to be followed at the [facility] as written. Will be waiting for authorization to restart application of skin graft substitute as it is a new year. This may take a week to a few weeks which was educated to the patient and he showed understanding this. Patient will continue strict blood sugar control. Follow-up at the wound care center with Dr. Lyons in 1 week. (2) Non-pressure chronic ulcer of other part of right foot with muscle involvement without evidence of necrosis: CODE(S): L97.515 - Non-pressure chronic ulcer of other part of right foot with muscle involvement without evidence of necrosis
[2024-08-01 10:45] VITALS: BP 121/54; PULSE 89; RESP 18; TEMP 36.6; BMI 26.4
--- NOTE | 2024-08-01 12:09 | PCM.WC.PN ---
History of Present Illness Date of Service: 07/17/24 Chief Complaint: Ulcer right foot History of Wound: This patient presents to the wound healing center today for follow-up of ulcer to right foot with area of open surgical site. Patient is status post debridement of all nonviable, infected, necrotic soft tissue and bone of the right foot with open right hallux amputation performed on 07/18/2019. Patient also had a vascular procedure performed by Dr. Shah to try and reestablish better blood flow to the lower extremity. Following patient's discharge from the hospital he is been at a [facility] facility where he has had a wound VAC applied to the area that is to be changed 3 times a week. Patient currently feels well. Patient denies any feelings of nausea, vomiting, fever, chills. Subjective Subjective Mr. Mathew is a 73-year-old diabetic male presenting with concern today follow-up evaluation of full-thickness wound to the right lower extremity. Patient has left the dressing clean dry and intact since he has had graft placement to the transmetatarsal amputation full-thickness wound. His blood sugars well-controlled. He denies any pain right lower extremity. Denies trauma. Denies constitutional symptoms. No other pedal complaints at this time. Objective Data Objective Data Vital Signs: Vital Signs Temp Pulse Resp BP O2 Del Method 98 F 89 18 121/54 H Room Air 08/01/24 10:45 08/01/24 10:45 08/01/24 10:45 08/01/24 10:45 08/01/24 10:45 Oxygen Delivery Method Room Air Weight: 86.183 kg Body Mass Index (BMI) 26.4 Physical Exam Narrative Vascular: DP and PT pulses are palpable to the right lower extremity. CFT is brisk to the flap to the right foot. Skin temperature great is warm to warm from proximal ankles to distal digits. Skin temperature and turgor is within normal limits. Neurological: Light touch intact. Patient does not respond to painful stimuli. Dermatological: Right transmetatarsal amputation stump medially is now healed. Right transmetatarsal amputation stump wound measures 1.7 x 1.6 x 0.6 cm. Negative probe to bone. No drainage no sign of infection. Right heel full-thickness wound measures 3.2 x 1.7 x 0.2 cm. All wounds are stable. Excisional debridement down to and including subcutaneous tissue of the right posterior heel with a number 5 mm dermal curette without incident. Predebridement measurement was 3.1 x 1.6 x 0.1 cm. Postdebridement measurement is 3.2 x 1.7 x 0.2 cm. Excisional debridement down to and including subcutaneous tissue to the right TMA full-thickness ulceration with a number 5 mm dermal curette without incident. Predebridement measurement was 1.5 x 1.5 x 0.5 cm. Postdebridement measurement is 1.7 x 1.6 x 0.6 cm. EpiCord 2.0 x 3.0 cm graft was applied to the right full-thickness ulceration to the TMA site with 100% use. Fourth application. The graft site was free and clear of any infection. The wound/skin graft substitute was dressed with nonadherent bandage secured in place with Steri-Strips followed by bolster dressing as well as a single Tubigrip compression bandage donned to the right lower extremity. Musculoskeletal:. Muscle strength is 5 out of 5 in all quadrants to the right lower extremity. No pain to palpation to the full-thickness wounds to the right lower extremity. No pain with calf pressure. Debridement Note Debridement Note Debridement Free Text: Excisional debridement down to and including subcutaneous tissue of the right posterior heel with a number 5 mm dermal curette without incident. Predebridement measurement was 3.1 x 1.6 x 0.1 cm. Postdebridement measurement is 3.2 x 1.7 x 0.2 cm. Excisional debridement down to and including subcutaneous tissue to the right TMA full-thickness ulceration with a number 5 mm dermal curette without incident. Predebridement measurement was 1.5 x 1.5 x 0.5 cm. Postdebridement measurement is 1.7 x 1.6 x 0.6 cm. EpiCord 2.0 x 3.0 cm graft was applied to the right full-thickness ulceration to the TMA site with 100% use. Fourth application. The graft site was free and clear of any infection. The wound/skin graft substitute was dressed with nonadherent bandage secured in place with Steri-Strips followed by bolster dressing as well as a single Tubigrip compression bandage donned to the right lower extremity. 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 ) ) Arrival Mode Wheelchair Ambulatory, Wheelchair Transfer Assistance None Accompanied by self Patient Identification Verified (Name & Yes Yes ) Patient Requires Transmission-Based No Precautions Safety Precautions Fall Prevention Finger Stick Blood Sugar(mg/dl) (if 220 140 indicated): Blood Sugar Stated by Stated by Patient Patient Height and Weight Body Mass Index (BMI) 26.4 26.4 BMI Classification Overweight Overweight Vital Signs Temperature (97.8 F-99.1 F) 98.1 F 98 F Temperature Source Temporal Temporal Pulse Rate (60-100) 66 89 Pulse Location Monitor Monitor Respiratory Rate (12-18) 14 18 Respiratory rate source Observation Oxygen Delivery Method Room Air Blood Pressure (90/60-120/80) 119/47 L 121/54 H Blood Pressure Mean (mm Hg) 71 76 Source Monitor Monitor Position Sitting Sitting Blood Pressure Location Right Arm Right Arm History Since Last Visit- (Skip if this is Patient's initial visit) Have you changed medications since your No last visit? Any new allergies or adverse reactions No Had a fall/change in ADL's that may No increase risk of falls Signs or symptoms of abuse and/or No neglect since last visit Have you been in the hospital since your No last visit? Has dressing in place as prescribed Yes Yes Has compression in place as prescribed Yes Yes Has offloadiing in place as prescribed N/A Yes Experienced any changes in pain level or No Yes management Left Footwear Regular Shoe Right Footwear Regular Shoe Pain Scale: 0-10 Numeric Is Patient Pain Free? Yes Yes DOLORES - Nurse 1 - General Ulcer Measurement Start: 07/25/24 10:14 Freq: Status: Active Protocol: Activity Type Activity Date Activity User E-sign Co-sign Detail Recorded Client Recorded Date Recorded By Document 07/25/24 10:14 ML [id number] 07/25/24 10:24 ML Document 08/01/24 10:45 IN [id number] 08/01/24 10:52 IN 07/25/24 08/01/24 10:14 10:45 Wound Center Nurse 1 4-right medial TMA -Current Size (cm) - Length 0.1 -Current Size (cm) - Width 0.1 -Current Size (cm) - Depth 0.1 -Total Square Cm 0.01 -Exudate Amt Small -Exudate Type Serous -Wound Margin Thickened & Rolled Under -Granulation Amt Small (1-33%) -Slough/Fibrin Yes -Necrosis Amt Medium (34-66%) -Necrotic Tissue Type Adherent Slough -Texture (Donna-wound Skin Appearance) Assessed -Moisture (Donna-wound Skin Appearance) Assessed -Color (Donna-wound Skin Appearance) Assessed -Temperature (Donna-wound Skin No Abnormality Appearance) (Pt Warm) -Tenderness on Palpation (Donna-wound No Skin Appearance) -Ulcer Cleansing Soap and Water -Foul Odor after Cleansing No -Anesthetic Used 5% Lidocaine Gel #4 right heel -Current Size (cm) - Length 3.2 3 -Current Size (cm) - Width 2.4 1.5 -Current Size (cm) - Depth 0.3 0.3 -Total Square Cm 7.68 4.5 -Date of Last Picture (Recall this 08/01/24 field) -Photo Taken Yes -Tunneling No -Undermining/Tunneling No -Circular Undermining No -Exudate Amt Medium Small -Exudate Type Serosanguineous Serosanguineous -Wound Margin Thickened & Thickened & Rolled Under Rolled Under -Granulation Amt Small (1-33%) Large (67-100%) -Granulation Quality Pale,[place] -Slough/Fibrin Yes -Necrosis Amt Medium (34-66%) Small (1-33%) -Necrotic Tissue Type Adherent Slough Adherent Slough -Texture (Donna-wound Skin Appearance) Assessed Assessed -Moisture (Donna-wound Skin Appearance) Assessed Assessed -Color (Donna-wound Skin Appearance) Assessed Assessed -Temperature (Donna-wound Skin No Abnormality No Abnormality Appearance) (Pt Warm) (Pt Warm) -Tenderness on Palpation (Donna-wound No No Skin Appearance) -Ulcer Cleansing Soap and Water Soap and Water -Foul Odor after Cleansing No No -Anesthetic Used 5% Lidocaine 5% Lidocaine Gel Gel #3 right lateral foot -Current Size (cm) - Length 2 1.6 -Current Size (cm) - Width 1.5 1.8 -Current Size (cm) - Depth 0.6 0.9 -Total Square Cm 3.0 2.88 -Date of Last Picture (Recall this 08/01/24 field) -Photo Taken Yes -Tunneling No -Undermining/Tunneling No -Circular Undermining No -Exudate Amt Medium Medium -Exudate Type Serosanguineous Serosanguineous -Wound Margin Thickened & Thickened & Rolled Under Rolled Under -Granulation Amt Medium (34-66%) Large (67-100%) -Granulation Quality Pale,[place] -Slough/Fibrin Yes -Necrosis Amt Medium (34-66%) Small (1-33%) -Necrotic Tissue Type Adherent Slough Adherent Slough -Texture (Donna-wound Skin Appearance) Assessed Assessed -Moisture (Donna-wound Skin Appearance) Assessed Assessed, Maceration -Color (Donna-wound Skin Appearance) Assessed Assessed -Temperature (Donna-wound Skin No Abnormality No Abnormality Appearance) (Pt Warm) (Pt Warm) -Tenderness on Palpation (Donna-wound No No Skin Appearance) -Ulcer Cleansing Soap and Water Soap and Water -Foul Odor after Cleansing No No -Anesthetic Used 5% Lidocaine 5% Lidocaine Gel Gel Lower Limb Edema Present NA WC - Nurse 2 - General Ulcer CM Notes Start: 07/25/24 10:14 Freq: Status: Active Protocol: Activity Type Activity Date Activity User E-sign Co-sign Detail Recorded Client Recorded Date Recorded By Document 07/25/24 10:46 NESS [id number] 07/25/24 10:52 Document 08/01/24 11:22 JF [id number] 08/01/24 11:28 JF 07/25/24 08/01/24 10:46 11:22 Wound Center Nurse 2 4-right medial TMA -Correct Patient No -Correct Side, Site, Position No -Correct Procedure No -Procedure Performed No -Post Debridement (cm) - Length 0 -Post Debridement (cm) - Width 0 -Post Debridement (cm) - Depth 0 -Total Square (Post) (cm) 0 -Area of Debridement (cm) - Length 0 -Area of Debridement (cm) - Width 0 -Total Square (Area) (cm) 0 -Wound/Ulcer Outcome Healed- Epithelialized #4 right heel -Time 10:48 11:25 -Correct Patient Yes Yes -Correct Side, Site, Position Yes Yes -Correct Procedure Yes Yes -Procedure Performed Yes Yes -Type of Procedure Debridement Debridement -Clinical Debridement Muscle / Fascia Subcutaneous -Tissue Removed Muscle Subcutaneous -Post Debridement (cm) - Length 3.4 3.2 -Post Debridement (cm) - Width 0.8 1.7 -Post Debridement (cm) - Depth 0.3 0.2 -Total Square (Post) (cm) 2.72 5.44 -Area of Debridement (cm) - Length 3.4 3.2 -Area of Debridement (cm) - Width 0.8 1.7 -Total Square (Area) (cm) 2.72 5.44 -Tunneling No No -Undermining/Tunneling No No -Circular Undermining No No -Wound/Ulcer Outcome Not Healed Not Healed -Ulcer Cleansing Rinsed/ Rinsed/ Irrigated with Irrigated with Saline Saline -Foul Odor after Cleansing No No -Bioengineered Tissue No No -Bleeding Controlled with Pressure Pressure -Treatment Response Procedure Procedure Tolerated Well Tolerated Well -Offloading No No -Debridement - Subq, 1st 20sq cm Yes -Debridement - Muscle / Fascia, 1st Yes 20sq cm #3 right lateral foot -Time 10:48 11:26 -Correct Patient Yes Yes -Correct Side, Site, Position Yes Yes -Correct Procedure Yes Yes -Procedure Performed Yes Yes -Type of Procedure Debridement Debridement -Clinical Debridement Muscle / Fascia Subcutaneous -Tissue Removed Muscle Subcutaneous -Post Debridement (cm) - Length 2.0 1.7 -Post Debridement (cm) - Width 1.7 1.6 -Post Debridement (cm) - Depth 0.8 0.6 -Total Square (Post) (cm) 3.40 2.72 -Area of Debridement (cm) - Length 2.0 1.7 -Area of Debridement (cm) - Width 1.7 1.6 -Total Square (Area) (cm) 3.40 2.72 -Tunneling No No -Undermining/Tunneling No No -Circular Undermining No No -Wound/Ulcer Outcome Not Healed Not Healed -Ulcer Cleansing Rinsed/ Rinsed/ Irrigated with Irrigated with Saline Saline -Foul Odor after Cleansing No No -Bioengineered Tissue No Yes -Type of Bioengineered Tissue Epicord -Expiration Date 01/15/29 -Product Lot Number [id number] -Percent Used 100 -Lot number of Saline Used [id number] -Bleeding Controlled with Pressure Pressure -Treatment Response Procedure Procedure Tolerated Well Tolerated Well -Offloading No No -Debridement - Subq, 1st 20sq cm No -Debridement - Muscle / Fascia, 1st No 20sq cm -Apply Skin Sub - 1st 25 sq cm - Feet 1 -Epicord (per sq cm) 6 Pain Scale: 0-10 Numeric Is Patient Pain Free? Yes Yes - Nurse 3 - General Ulcer D/C NN Start: 07/25/24 10:14 Freq: Status: Active Protocol: Activity Type Activity Date Activity User E-sign Co-sign Detail Recorded Client Recorded Date Recorded By Document 07/25/24 11:08 KW [id number] 07/25/24 11:09 KW Document 08/01/24 11:34 DL [id number] 08/01/24 11:35 DL 07/25/24 08/01/24 11:08 11:34 Wound Care Center Nurse 3 #4 right heel -Other Dressing santyl, hydrogel hydrogel today -Primary Dressing Covered/Secured with Dry Gauze Dry Gauze,Dry Gauze & Roll Gauze,Secured with Tape #3 right lateral foot -Other Dressing dakins soaked gauze -Primary Dressing Covered/Secured with Dry Gauze & Dry Gauze & Roll Gauze, Roll Gauze, Secured with Secured with Tape Tape Right -Compression Wrap Donte Wrap -Other donte Treatment Response Procedure Tolerated Well Pain Scale: 0-10 Numeric Is Patient Pain Free? 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 All findings were discussed with the patient. All questions were answered to the patient's satisfaction. Excisional debridement down to and including subcutaneous tissue of the right posterior heel with a number 5 mm dermal curette without incident. Predebridement measurement was 3.1 x 1.6 x 0.1 cm. Postdebridement measurement is 3.2 x 1.7 x 0.2 cm. Excisional debridement down to and including subcutaneous tissue to the right TMA full-thickness ulceration with a number 5 mm dermal curette without incident. Predebridement measurement was 1.5 x 1.5 x 0.5 cm. Postdebridement measurement is 1.7 x 1.6 x 0.6 cm. EpiCord 2.0 x 3.0 cm graft was applied to the right full-thickness ulceration to the TMA site with 100% use. Fourth application. The graft site was free and clear of any infection. The wound/skin graft substitute was dressed with nonadherent bandage secured in place with Steri-Strips followed by bolster dressing as well as a single Tubigrip compression bandage donned to the right lower extremity. Patient will have Santyl applied to the right heel with saline moist gauze and compression wrap. Patient was giving dressing changes to be followed at the as written. Patient will continue strict blood sugar control. Follow-up at the wound care center with Dr. Lyons in 1 week. (2) Non-pressure chronic ulcer of right heel and midfoot with fat layer exposed: CODE(S): L97.412 - Non-pressure chronic ulcer of right heel and midfoot with fat layer exposed
--- NOTE | 2024-08-02 08:32 | WC ---
PHOTO 08/01/24 RIGHT LATERAL FOOT
--- NOTE | 2024-08-02 08:40 | WC ---
PHOTO 08/01/24 RIGHT HEEL
== END 2024-08-17 23:59 | disposition skilled nursing facility (03) ==
LOC: WC 10:00
PROVIDERS: PCP Family Medicine Geriatric Medicine; Referring Provider Podiatrist Foot & Ankle Surgery; Visit Provider Podiatrist Foot & Ankle Surgery
DX: E11.622 Type 2 diabetes mellitus with other skin ulcer (principal); L97.515 Non-pressure chronic ulcer of other part of right foot with muscle involvement without evidence of necrosis; L97.413 Non-pressure chronic ulcer of right heel and midfoot with necrosis of muscle; L97.516 Non-pressure chronic ulcer of other part of right foot with bone involvement without evidence of necrosis
CPT/HCPCS: 11042; 11043; 15275; Q4187

== ENCOUNTER 2024-08-05 09:24 | Emergency (ER) | payer MEDICARE, MEDICAID, SELFPAY ==
[2024-08-05 09:25] VITALS: BP 111/44; PULSE 62; RESP 20; TEMP 36.4; O2SAT 96
--- NOTE | 2024-08-05 09:34 | EKG12_ITS ---
Test Reason : GI BLEED Blood Pressure : */* mmHG Vent. Rate : 60 BPM Atrial Rate : 60 BPM P-R Int : 214 ms QRS Dur : 90 ms QT Int : 412 ms P-R-T Axes : 66 30 -31 degrees QTcB Int : 412 ms Sinus rhythm with 1st degree A-V block Possible Inferior infarct , age undetermined Anterior infarct , age undetermined Abnormal ECG Confirmed by TIKA CHAPA, SHEN ([id number]), assignment editor STANISLAV OVIEDO ([id number]) on 08/06/2024 10:56:14 A M Referred By: Confirmed By: SHEN VILLELA MD
[2024-08-05 09:59] LABS: Absolute Lymphocyte Count 1.32 X10^3/uL (0.83-4.51); Absolute Neutrophil Count 2.9 X10^3/uL (2.0-7.7); Basophil# 0.01 X10^3/uL; Basophil% 0.2 % (0-1); Eosinophil# 0.14 X10^3/uL; Eosinophils% 2.9 % (0-5); Hematocrit 24.9 % (40-54); Hemoglobin 7.7 g/dL (13.0-16.5); Lymphocyte # 1.32 X10^3/ul (0.83-4.51); Lymphocyte % 27.6 % (19-41); Mean Corp Hgb Conc 30.9 g/dL (32-36); Mean Corpuscular Hgb 30.2 pg (27.0-32.0); Mean Corpuscular Volume 97.6 fL (80-94); Mean Platelet Vol. 10.6 fl (6.2-12.0); Monocyte# 0.43 X10^3/uL; NRBC Flagged by Analyzer 0 % (0-5); Neutrophil # 2.87 X10^3/uL (2.7-7.7); Neutrophil % 59.9 % (47-70); Platelet Count 152 K/mm3 (150-450); RBC Distribution Width CV 14.8 % (11.6-14.6); RBC Distribution Width SD 53.1 fl (35.1-43.9); Red Blood Count 2.55 M/mm3 (4.6-6.2); White Blood Count 4.8 K/mm3 (4.4-11.0)
[2024-08-05 10:10] LABS: International Normalized Ratio 3.1; Prothrombin Time (Protime)PT. 32.9 SECONDS (11.7-14.9)
[2024-08-05 10:12] LABS: Anion Gap 2 (5-15); BUN 58 mg/dL (7-18); BUN/Creat Ratio 39.2 RATIO (10-20); Calcium,Total 8.5 mg/dL (8.5-10.1); Chloride 117 mmol/L (98-107); Creatinine, Serum 1.48 mg/dL (0.70-1.30); EST Glomerular Filtration Rate 50 mL/min (>60); Est Glom Filt Rate - Afr Amer 60 mL/min (>60); Estimated Creatinine Clearance 54.59 ml/min; Glucose 181 mg/dL (74-106); Potassium 4.5 mmol/L (3.5-5.1); Sodium Level 144 mmol/L (136-145)
[2024-08-05 10:22] LABS: Lactic Acid 1.2 mmol/L (0.4-1.9)
--- NOTE | 2024-08-05 11:18 | EX.ED.DYSGE1 ---
HPI History of Present Illness Chief Complaint: GI Bleed Detail of Chief Complaint: Presents because of bright red blood per rectum Informant: patient Onset/Context/Timing Onset: Today (X 1 prior to arrival) Context: Sudden Onset Timing: Intermittent Quality: Bright red blood Location: Rectum Current Severity: Mild Maximum Severity: Mild Worsened by: Nothing Relieved by: Not applicable Associated Symptoms Associated Symptoms: No complaint of dyspnea, orthostatic lightheadedness. He is on anticoagula Narrative Narrative: Patient is a 73-year-old male with multiple medical problems. He is on 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. He he has not had his INR checked recently. He denies orthostatic symptoms. Denies chest discomfort, pressure or tightness. Prior similar symptoms: No PFSH PFSH Medical History Non-pressure chronic ulcer of right heel and midfoot with fat layer exposed Non-pressure chronic ulcer of other part of right foot with bone involvement without evidence of necrosis Non-pressure chronic ulcer of right heel and midfoot with necrosis of muscle Non-pressure chronic ulcer of other part of right foot with muscle involvement without evidence of necrosis Non-pressure chronic ulcer of other part of right lower leg with fat layer exposed Diabetes mellitus PVD (peripheral vascular disease) Anemia Diabetic foot infection PAOD (peripheral arterial occlusive disease) Trigger finger of both hands Amputation of second toe, right, traumatic Aftercare following surgery of the circulatory system Anemia Hyperbilirubinemia Nicotine dependence, cigarettes, uncomplicated Atherosclerosis of [place] arteries of right leg with ulceration of other part of foot Non-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 Peripheral vascular occlusive disease Diabetic ulcer of toe of left foot associated with type 2 diabetes mellitus Ulcer of toe of left foot Atherosclerosis of [place] arteries of left leg with ulceration of other part of foot Wears glasses Alcohol use Insulin dependent diabetes mellitus Back pain Syncope Dietary restriction Cardiology follow-up encounter History of rheumatic fever ZOFIA (acute kidney injury) Recurrent right pleural effusion Osteomyelitis of toe of right foot Non-pressure chronic ulcer of other part of left foot with fat layer exposed Acute exacerbation of CHF (congestive heart failure) Anticoagulant long-term use Acute and chronic respiratory failure with hypercapnia Encephalopathy acute Acute hypercapnic respiratory failure Atherosclerosis of lower extremity with ulceration COPD (chronic obstructive pulmonary disease) Inability to walk Adult failure to thrive CHF (congestive heart failure) Smoker Congestive heart failure Sternal wound infection 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 MSSA (methicillin susceptible Staphylococcus aureus) infection History of non-ST elevation myocardial infarction (NSTEMI) (04/23/20) Non-healing 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 wound (05/01/20) 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 of 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 Chronic combined systolic and diastolic CHF (congestive heart failure) Type 2 diabetes mellitus Atherosclerosis of coronary artery without angina pectoris Nicotine dependence Ischemic cardiomyopathy Secondary pulmonary arterial hypertension Essential (primary) hypertension Nonrheumatic aortic (valve) stenosis 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 Osteomyelitis Diabetic foot infection Bleeding disorder Ulcer of right foot with fat layer exposed COPD (chronic obstructive pulmonary disease) Hyperlipidemia DVT (deep venous thrombosis) GERD (gastroesophageal reflux disease) Home Medications ?Medication ?Instructions ?Recorded ?Last Taken ?Type atorvastatin 40 mg tablet 40 mg PO DAILY cholesterol 11/12/20 11/03/23 History ferrous sulfate 325 mg (65 mg 325 mg PO DAILY 10/29/22 11/02/23 History iron) tablet furosemide 40 mg tablet 40 mg PO DAILY #0 tabs 11/12/22 11/02/23 Rx cyclobenzaprine 10 mg tablet 10 mg PO TID PRN Muscle Pain 12/11/22 11/02/23 History insulin lispro 100 unit/mL 5 unit subcut ACHS 12/11/22 11/03/23 History subcutaneous pen (Humalog KwikPen (U-100) Insulin) pantoprazole 40 mg tablet,delayed 40 mg PO QDAY 10/04/23 11/02/23 History release aspirin 81 mg tablet,delayed 81 mg PO DAILY 10/28/23 11/02/23 History release (Adult Aspirin Regimen) doxepin 50 mg capsule 50 mg PO DAILY 10/28/23 11/02/23 History gabapentin 100 mg capsule 100 mg PO BID 10/28/23 11/02/23 History insulin glargine-yfgn 100 unit/mL 15 unit subcut QHS 10/28/23 11/03/23 History (3 mL) subcutaneous pen linagliptin 5 mg tablet (Tradjenta) 5 mg PO DAILY 10/28/23 11/03/23 History metoprolol succinate 25 mg 25 mg PO DAILY 10/28/23 11/03/23 History tablet,extended release 24 hr mirtazapine 7.5 mg tablet 7.5 mg PO QHS 10/28/23 11/03/23 History hnontiph-xf-pzmoe 300 mcg-K 60 1 tab PO DAILY 10/28/23 11/02/23 History mcg-lycop 600 mcg-lutein 300 mcg tablet (Centrum Silver Men) cholecalciferol (vitamin D3) 25 25 mcg PO DAILY 10/31/23 11/02/23 History mcg (1,000 unit) capsule losartan 100 mg tablet 100 mg PO DAILY 10/31/23 11/03/23 History clopidogrel 75 mg tablet (Plavix) 75 mg PO DAILY #90 tabs 12/21/23 Unknown Rx acetaminophen 325 mg tablet 1,000 mg (3.0769 x 325 mg) PO Q8H 03/02/24 Unknown Rx PRN PRN Fever, pain 1-04/26 #0 tabs arginine 7 gram-glutam 7 1 packet PO BIDCM #0 ea 03/02/24 Unknown Rx gram-CaHMB 1.5 xcax-mlpzs-hl-min oral pwd pkt (Renny (with collagen)) insulin lispro 100 unit/mL See Protocol subcut ACHS #0 mL 03/02/24 Unknown Rx subcutaneous pen (Humalog KwikPen (U-100) Insulin) warfarin 1 mg tablet 4 mg PO DAILY 06/06/24 Unknown History albuterol sulfate 2.5 mg/3 mL 2.5 mg inhalation Q4H PRN 07/19/24 Unknown History (0.083 %) solution for nebulization shortness of breath or wheezing Allergy/AdvReac Type Severity Reaction Status Date / Time No Known Allergies Allergy Verified 07/19/24 10:33 Family History Mother Diabetes Heart disease Father Diabetes Surgical History (Updated 08/05/24 @ 11:[address] Wilman Carrillo MD) History of amputation History of incision and drainage (09/22/20) History of angioplasty of peripheral vessel (01/02/10) History of lumbar laminectomy History of femoropopliteal bypass (2008) H/O coronary artery bypass surgery (05/01/20) History of mechanical aortic valve replacement History of left heart catheterization (04/23/20) Social History household members: significant other Smoking Status: Light Smoker (<10/day) alcohol intake: never substance use type: does not use caffeine: No ROS ROS ED Constitutional Constitutional ED: Denies chills, fever(s) or subjective Eyes Eyes: Denies blurry vision or change in vision Cardiovascular Cardiovascular: Denies chest pain or palpitations Respiratory/Chest Respiratory/Chest: Denies cough, dyspnea or dyspnea on exertion Gastrointestinal Gastrointestinal: Denies abdominal pain, constipation, diarrhea, melena, nausea or vomiting Genitourinary Genitourinary ED: Denies dysuria, hematuria or urinary frequency Musculoskeletal Musculoskeletal: Denies arthralgias or myalgias Integumentary Reports other Details: Bruising ; Denies rash Neurologic Neurologic: Denies paresthesias or weakness Psychiatric Psychiatric: Denies anxiety or depression Hematologic/Lymphatic Hematologic/Lymphatic: Reports systems reviewed and no addt'l complaints, except as documented and easy bruising EXAM Physical Exam Const Vital Signs: 08/05/24 09:25 08/05/24 11:24 Temperature 97.6 F L Temperature Source Temporal Pulse Rate 62 57 L Respiratory Rate 20 H 23 H Blood Pressure 111/44 L 105/51 L Blood Pressure Mean 66 69 Pulse Ox 96 100 Oxygen Delivery Method Room Air Room Air Positive well nourished General Appearance ED: NAD and pallor; Negative for cyanotic or diaphoretic HEENT Reports moist mucous membranes HEENT Narrative: Atraumatic normocephalic. Ears normal. Posterior pharynx normal. Eyes PERRL and EOMs intact bilaterally General Eye ED: Yes pale conjunctiva; Negative for scleral icterus Neck no lymphadenopathy, supple and no JVD Chest Wall inspection of chest normal and palpation of chest normal Resp normal respiratory effort and clear to auscultation bilaterally Cardio regular rate, regular rhythm, S1 normal heart sound, S2 normal heart sound and no murmurs GI normal to inspection, nondistended, normoactive bowel sounds, non-tender, non-distended and no masses; Negative for hepatosplenomegaly GI Narrative: Stool is chunky and not sticky and has a brownish-red color. Unusual and does not appear to be blood Palpation: soft Back/Spine no CVA tenderness Extremity General Extremety ED: Yes edema General Extremity: edema Neuro oriented x3 Sensorium / Orientation: alert Skin no rashes or lesions noted Skin Narrative: Multiple bruises noted. General Skin Exam: pallor; Negative for jaundice MDM MDM MDM Narrative Medical decision making narrative: Based on the appearance of his stool uncertain whether this is blood or not. Will send stool for blood testing. Also performed anoscopy to determine if there is hemorrhoids. CBC was obtained to assess for anemia which clinically he has and to compare to prior. BUN and creatinine to assess ratio and determine if this is much higher than prior. Because he is on Coumadin PT/INR was obtained. Lactate was obtained to assess for endorgan dysfunction/poor perfusion. Since he is diabetic glucose was obtained and also to evaluate CO2/anion gap. Lab Data Attestation: I reviewed the patient's lab results. Lab results narrative: CBC is remarkable for H&H 7.7 and 24.9, which is patient's baseline. PT/INR is 32.9 and 3.1. Basic metabolic panel is remarkable for an elevated BUN/creatinine of 58 and 1.48 with a BUN to creatinine ratio 40:1. Estimated GFR is 50. Glucose is elevated 181. Patient has B+ blood.BUN and creatinine ratio has been elevated in the past up to approximately 40-1. Labs: Laboratory Results - last 24 hr 08/05/24 09:43 WBC 4.8 RBC 2.55 L Hgb 7.7 L Hct 24.9 L MCV 97.6 H MCH 30.2 MCHC 30.9 L RDW Std Deviation 53.1 H RDW Coeff of Estrada 14.8 H Plt Count 152 MPV 10.6 Immature Gran % (Auto) 0.400 Neut % (Auto) 59.9 Lymph % (Auto) 27.6 [place] % (Auto) 9.0 Eos % (Auto) 2.9 Baso % (Auto) 0.2 Absolute Neuts (auto) 2.9 Absolute Lymphs (auto) 1.32 Nucleated RBC % 0 PT 32.9 H INR 3.1 Sodium 144 Potassium 4.5 Chloride 117 H Carbon Dioxide 25.0 Anion Gap 2 L BUN 58 H Creatinine 1.48 H Estim Creat Clear Calc 54.59 Est GFR (MDRD) Af Amer 60 Est GFR (MDRD) Non-Af 50 L BUN/Creatinine Ratio 39.2 H Glucose 181 H Lactic Acid 1.2 Calcium 8.5 Blood Type B POSITIVE Antibody Screen NEGATIVE Stool was negative for blood. Of note the stool was predominantly brown and was not sticky. Anoscopy was performed. EKG Initial EKG: Attestation: I personally reviewed and interpreted this EKG as follows: Interpretation: Sinus Rhythm (Rate is 60. There is a first-degree AV block. CO interval is 214 ms. Cures duration 90 ms. QT duration 112 ms. Hope is normal. He has decreased anterior force. Unchanged from prior.) Treatment and Re-Evaluation :: In light of his laboratory results, and negative stool for blood he was questioned whether he had anything unusual to eat yesterday. He denied beets. He then recalled he had pomegranate. Procedures Other Procedures Procedure(s): Anoscopy was performed with nurse biology specialist in room. Patient has evidence of prior hemorrhoids. There appears to be an internal hemorrhoid with no active bleeding noted at this time. Stool is a brownish-red color. Does not have an odor that is consistent with blood. And is not tarry or sticky. Will send for occult blood testing since I do not believe it is blood. Discharge Plan Triage Chief Complaint: GI Bleed ED Provider: Wilman Carrillo Dx/Rx/DC Orders Clinical Impression: Dark red stool, Adult failure to thrive, History of mechanical aortic valve replacement, H/O coronary artery bypass surgery, Thrombocytopenia, Anticoagulant long-term use, Internal hemorrhoid Instructions: ED Hemorrhoids Prescriptions: No Action pantoprazole 40 mg tablet,delayed release (DR/EC) 40 mg PO QDAY losartan 100 mg tablet 100 mg PO DAILY cholecalciferol (vitamin D3) 25 mcg (1,000 unit) capsule 25 mcg PO DAILY albuterol sulfate 2.5 mg /3 mL (0.083 %) solution for nebulization 2.5 mg inhalation Q4H PRN (Reason: shortness of breath or wheezing) atorvastatin 40 mg Tablet 40 mg PO DAILY ferrous sulfate 325 mg (65 mg iron) tablet 325 mg PO DAILY furosemide 40 mg Tablet 40 mg PO DAILY Qty: 0 0RF cyclobenzaprine 10 mg Tablet 10 mg PO TID PRN (Reason: Muscle Pain) insulin lispro [Humalog KwikPen Insulin] 100 unit/mL Insulin Pen 5 unit SUBCUT ACHS Rx Instructions: set 5 u in addition to SLIDING SCALE Centrum Silver Men [id number] mcg tablet 1 tab PO DAILY aspirin [Adult Aspirin Regimen] 81 mg tablet,delayed release (DR/EC) 81 mg PO DAILY mirtazapine 7.5 mg tablet 7.5 mg PO QHS gabapentin 100 mg capsule 100 mg PO BID metoprolol succinate 25 mg tablet extended release 24 hr 25 mg PO DAILY Tradjenta 5 mg tablet 5 mg PO DAILY doxepin 50 mg capsule 50 mg PO DAILY insulin glargine-yfgn 100 unit/mL (3 mL) Insulin Pen 15 unit subcut QHS acetaminophen 325 mg Tablet 1,000 mg PO Q8H PRN PRN (Reason: Fever, pain 1-04/26) Qty: 0 0RF insulin lispro [Humalog KwikPen Insulin] 100 unit/mL Insulin Pen See Protocol subcut ACHS Qty: 0 0RF Protocol: 3. Sliding Scale Insulin Med Dosing Condition: 150-189 mg/dl = 1 unit Condition: 190-229 mg/dl = 2 units Condition: 230-269 mg/dl = 3 units Condition: 270-309 mg/dl = 4 units Condition: 310-349 mg/dl = 5 units Condition: 350-399 mg/dl = 6 units Condition: 400-449 mg/dl = 7 units Condition: Greater than 449 call physician Protocol Text: - Use for Total Daily Dose of Insulin 37-55 units - Obsese, infected, or steroid patients MEDIUM DOSING ALGORITHIM Renny (with collagen) 7-7-1.5 gram Powder In Packet 1 packet PO BIDCM Qty: 0 0RF warfarin 1 mg tablet 4 mg PO DAILY clopidogrel [Plavix] 75 mg tablet 75 mg PO DAILY Qty: 90 0RF Primary Care Provider: Saurabh Hernandez Chi Referrals: Saurabh Hernandez Chi, MD [Primary Care Provider] - As Needed Print Language: Hebrew Disposition Disposition: Home, Self Care
[2024-08-05 11:24] VITALS: BP 105/51; PULSE 57; RESP 23; O2SAT 100
[2024-08-05 13:00] VITALS: BP 126/92; PULSE 68; RESP 21
[2024-08-05 13:57] VITALS: BP 118/49; PULSE 63; RESP 15; TEMP 36.4; O2SAT 100
== END 2024-08-05 14:13 | disposition home or self-care (01) ==
PROVIDERS: Emergency Provider Emergency Medicine; PCP Family Medicine Geriatric Medicine; Visit Provider Emergency Medicine
DX: K64.8 Other hemorrhoids (principal); I50.42 Chronic combined systolic (congestive) and diastolic (congestive) heart failure; I27.21 Secondary pulmonary arterial hypertension; I11.0 Hypertensive heart disease with heart failure; J44.9 Chronic obstructive pulmonary disease, unspecified; E11.51 Type 2 diabetes mellitus with diabetic peripheral angiopathy without gangrene; E11.42 Type 2 diabetes mellitus with diabetic polyneuropathy; Z79.4 Long term (current) use of insulin; D69.6 Thrombocytopenia, unspecified; R62.7 Adult failure to thrive; I44.0 Atrioventricular block, first degree; I25.2 Old myocardial infarction; I25.10 Atherosclerotic heart disease of native coronary artery without angina pectoris; I25.5 Ischemic cardiomyopathy; I35.0 Nonrheumatic aortic (valve) stenosis; D64.9 Anemia, unspecified; E78.5 Hyperlipidemia, unspecified; K21.9 Gastro-esophageal reflux disease without esophagitis; F17.200 Nicotine dependence, unspecified, uncomplicated; Z95.1 Presence of aortocoronary bypass graft; Z95.2 Presence of prosthetic heart valve; Z79.82 Long term (current) use of aspirin; Z79.02 Long term (current) use of antithrombotics/antiplatelets; Z79.01 Long term (current) use of 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s; Z79.899 Other long term (current) drug therapy; Z86.718 Personal history of other venous thrombosis and embolism
CPT/HCPCS: 46600; 99285; 80048; 82274; 83605; 85025; 85610; 86850; 86900; 86901; 93005; A4216

== ENCOUNTER 2024-08-06 08:56 | Inpatient (IN) | payer MEDICARE, MEDICAID, SELFPAY ==
[2024-08-06] VITALS (18 sets, daily range): BP systolic 102–148; BP diastolic 40–79; PULSE 60–82; RESP 14–26; TEMP 36.5–37.1; O2SAT 14–100; BMI 30.4; BMI 30.2
--- NOTE | 2024-08-06 09:34 | EDS_ITS ---
HPI History of Present Illness Chief Complaint: GI Bleed Narrative Narrative: Patient is a 73-year-old male with a past medical history of CABG and aortic valve replacement with [place] mechanical valve 21 mm on May 01, 2020, peripheral vascular disease, diabetes, CHF, COPD, chronic wounds, DVT on warfarin who presents to the emergency department chief complaint of having bright red blood in his bowel movement this morning. Patient states that he had a bowel movement around 830 this morning and noted that he had bright red blood. Per the nurse practitioner at the nursing facility he had red stool with dime size clots. Therefore they sent him here for further evaluation management. [facility] Medical History Non-pressure chronic ulcer of right heel and midfoot with fat layer exposed Non-pressure chronic ulcer of other part of right foot with bone involvement without evidence of necrosis Non-pressure chronic ulcer of right heel and midfoot with necrosis of muscle Non-pressure chronic ulcer of other part of right foot with muscle involvement without evidence of necrosis Non-pressure chronic ulcer of other part of right lower leg with fat layer exposed Diabetes mellitus PVD (peripheral vascular disease) Anemia Diabetic foot infection PAOD (peripheral arterial occlusive disease) Trigger finger of both hands Amputation of second toe, right, traumatic Aftercare following surgery of the circulatory system Anemia Hyperbilirubinemia Nicotine dependence, cigarettes, uncomplicated Atherosclerosis of [place] arteries of right leg with ulceration of other part of foot Non-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 Peripheral vascular occlusive disease Diabetic ulcer of toe of left foot associated with type 2 diabetes mellitus Ulcer of toe of left foot Atherosclerosis of [place] arteries of left leg with ulceration of other part of foot Wears glasses Alcohol use Insulin dependent diabetes mellitus Back pain Syncope Dietary restriction Cardiology follow-up encounter History of rheumatic fever ZOFIA (acute kidney injury) Recurrent right pleural effusion Osteomyelitis of toe of right foot Non-pressure chronic ulcer of other part of left foot with fat layer exposed Acute exacerbation of CHF (congestive heart failure) Anticoagulant long-term use Acute and chronic respiratory failure with hypercapnia Encephalopathy acute Acute hypercapnic respiratory failure Atherosclerosis of lower extremity with ulceration COPD (chronic obstructive pulmonary disease) Inability to walk Adult failure to thrive CHF (congestive heart failure) Smoker Congestive heart failure Sternal wound infection 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 MSSA (methicillin susceptible Staphylococcus aureus) infection History of non-ST elevation myocardial infarction (NSTEMI) (04/23/20) 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 Chronic combined systolic and diastolic CHF (congestive heart failure) Type 2 diabetes mellitus Atherosclerosis of coronary artery without angina pectoris Nicotine dependence Ischemic cardiomyopathy Secondary pulmonary arterial hypertension Essential (primary) hypertension Nonrheumatic aortic (valve) stenosis 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 Osteomyelitis Diabetic foot infection Bleeding disorder Ulcer of right foot with fat layer exposed COPD (chronic obstructive pulmonary disease) Hyperlipidemia DVT (deep venous thrombosis) GERD (gastroesophageal reflux disease) Home Medications ?Medication ?Instructions ?Recorded ?Last Taken ?Type atorvastatin 40 mg tablet 40 mg PO QHS cholesterol 11/12/20 11/03/23 History ferrous sulfate 325 mg (65 mg 325 mg PO DAILY 10/29/22 11/02/23 History iron) tablet furosemide 40 mg tablet 40 mg PO DAILY #0 tabs 11/12/22 11/02/23 Rx cyclobenzaprine 10 mg tablet 10 mg PO Q8H PRN Muscle Pain 12/11/22 11/02/23 History insulin lispro 100 unit/mL 5 unit subcut ACHS 12/11/22 11/03/23 History subcutaneous pen (Humalog KwikPen (U-100) Insulin) pantoprazole 40 mg tablet,delayed 40 mg PO QDAY 10/04/23 11/02/23 History release doxepin 50 mg capsule 50 mg PO DAILY 10/28/23 11/02/23 History gabapentin 100 mg capsule 100 mg PO DAILY 10/28/23 11/02/23 History insulin glargine-yfgn 100 unit/mL 15 unit subcut QHS 10/28/23 11/03/23 History (3 mL) subcutaneous pen linagliptin 5 mg tablet (Tradjenta) 5 mg PO DAILY 10/28/23 11/03/23 History metoprolol succinate 25 mg 25 mg PO DAILY 10/28/23 11/03/23 History tablet,extended release 24 hr mirtazapine 7.5 mg tablet 7.5 mg PO QHS 10/28/23 11/03/23 History kpxnyafm-gc-ujbtu 300 mcg-K 60 1 tab PO DAILY 10/28/23 11/02/23 History mcg-lycop 600 mcg-lutein 300 mcg tablet (Centrum Silver Men) cholecalciferol (vitamin D3) 25 25 mcg PO DAILY 10/31/23 11/02/23 History mcg (1,000 unit) capsule losartan 100 mg tablet 100 mg PO DAILY 10/31/23 11/03/23 History clopidogrel 75 mg tablet (Plavix) 75 mg PO DAILY #90 tabs 12/21/23 Unknown Rx arginine 7 gram-glutam 7 1 packet PO BIDCM #0 ea 03/02/24 Unknown Rx gram-CaHMB 1.5 vgpr-nprhv-sb-min oral pwd pkt (Renny (with collagen)) albuterol sulfate 2.5 mg/3 mL 2.5 mg inhalation Q4H PRN 07/19/24 Unknown History (0.083 %) solution for nebulization shortness of breath or wheezing acetaminophen 500 mg tablet 1,000 mg PO Q8H PRN pain 08/06/24 Unknown History aspirin 81 mg chewable tablet 1 tab PO DAILY 08/06/24 Unknown History gabapentin 300 mg capsule 300 mg PO QHS 08/06/24 Unknown History insulin lispro 100 unit/mL 1 sliding scale dose subcut ACHS 08/06/24 Unknown History subcutaneous pen (Humalog KwikPen (U-100) Insulin) Allergy/AdvReac Type Severity Reaction Status Date / Time No Known Allergies Allergy Verified 08/06/24 09:02 Family History Mother Diabetes Heart disease Father Diabetes Surgical History History of amputation History of incision and drainage (09/22/20) History of angioplasty of peripheral vessel (01/02/10) History of lumbar laminectomy History of femoropopliteal bypass (2008) H/O coronary artery bypass surgery (05/01/20) History of mechanical aortic valve replacement History of left heart catheterization (04/23/20) Social History household members: significant other Smoking Status: Light Smoker (<10/day) alcohol intake: never substance use type: does not use caffeine: No ROS ROS ED ROS Narrative Constitutional: Denies fevers, chills, headaches, lightness, dizziness Cardiovascular: Denies chest pain or palpitations Respiratory: Denies shortness of breath Abdomen: Complains of bright red blood per rectum as noted above with bowel movement denies abdominal pain nausea vomit diarrhea : Denies any urinary symptoms Neurological: Denies numbness, weakness, tingling Musculoskeletal: Denies back pain Skin: Denies rashes or lesions EXAM Physical Exam Narrative Exam Narrative: General: Patient was lying in bed rest comfortably did not appear to be acute distress Head: Atraumatic, normocephalic Eyes: PERRL bilaterally, EOMI bilaterally, no conjunctival injection noted Neck: Soft, supple, trachea midline Cardiovascular: Regular rate and rhythm no murmurs gallops rubs noted Respiratory: Clear to auscultation bilaterally Abdomen: Soft, nondistended, no tenderness to palpation, bowel sounds present x 4, no rebound or guarding on exam Extremities: +4/5 strength noted in the bilateral upper and lower extremities, radial pulses +2/4 in the bilateral upper extremities, no pedal edema on exam Neurological: Patient follow commands and that he was at [facility] year is 2024 Skin: Warm, dry, intact no rashes or lesions noted, chronic wounds noted did not appear to be infected Const Vital Signs: 08/06/24 08:57 08/06/24 10:56 08/06/24 11:03 Temperature 98.7 F Temperature Source Oral Pulse Rate 68 65 65 Respiratory Rate 25 H 18 18 Blood Pressure 116/40 L 134/62 H Blood Pressure Mean 65 86 Pulse Ox 97 100 100 Oxygen Delivery Method Room Air Room Air 08/06/24 11:15 08/06/24 11:17 08/06/24 11:30 Temperature Temperature Source Pulse Rate 82 69 64 Respiratory Rate 18 26 H 20 H Blood Pressure 130/45 H 102/79 Blood Pressure Mean 70 87 Pulse Ox 99 Oxygen Delivery Method 08/06/24 11:45 08/06/24 12:00 08/06/24 12:08 Temperature 98.2 F Temperature Source Pulse Rate 67 60 60 Respiratory Rate 21 H 18 18 Blood Pressure 133/64 H 137/57 H 137/57 H Blood Pressure Mean 83 81 83 Pulse Ox 100 100 100 Oxygen Delivery Method MDM MDM MDM Narrative Medical decision making narrative: Patient is a 73-year-old male who presented to the emergency department with a chief complaint of bright red blood per rectum with a bowel movement this morning. On the differential diagnose includes but not limited to internal hemorrhoids, external hemorrhoids, lower GI bleed, UTI, hematuria. Once workup is obtained reviewed he will be reevaluated. Patient workup from yesterday was reviewed And his CBC was largely unremarkable no evidence leukocytosis white blood count normal at 4.8, hemoglobin 7.7, plate count was noted be 152. Patient's INR was noted to be 3.1. Patient sodium normal 144, potassium was normal at 4.5, creatinine was 1.48 BUN was elevated to 58. Patient's fecal occult was negative. Dr. Carrillo did perform anoscopy yesterday which was negative. Patient's CBC was reviewed showed a white blood count 4.3, hemoglobin 6.5 which is down from 7.7 he be typed and screened for 2 units. Patient's of platelet count was noted to be normal at 151, INR of 2.2, PT of 25.1. Patient's sodium normal at 142, potassium is 4.8, creatinine was 1.36 which is roughly around his baseline does have underlying chronic kidney disease. Patient's AST and ALT were 16 and 18 respectively. Patient lipase normal at 22. Patient's CTA of the abdomen pelvis was reviewed showed stable central right upper abdominal wall hernia scattered sigmoid diverticula. Given the patient's acute drop in hemoglobin and despite the lab reading his fecal occult negative when I had dark red blood during digital rectal exam did reach out to on-call motor route carrier Dr. Gee as he has a mechanical aortic valve in regards to reversal of his warfarin. After discussion with him he states that he would hold off on reversing his warfarin for now unless Dr. Moss is requiring a lower INR to scope him. I called and discussed case with Dr. Moss and he states that he does not need a lower INR therefore we will discontinue the vitamin K order and not provide any reversal. Dr. Gee did recommended if there is need for any type of reversal he would recommend administering FFP as opposed to vitamin K. Called and discussed case with hospitalist Dr. Nunez who will accept patient for admission. Patient was notified he is agreeable this plan all question concerns answered. Lab Data Labs: Laboratory Results - last 24 hr 08/06/24 08/06/24 09:50 09:58 WBC 4.3 L RBC 2.18 L Hgb 6.5 L Hct 21.2 L MCV 97.2 H MCH 29.8 MCHC 30.7 L RDW Std Deviation 52.6 H RDW Coeff of Estrada 14.7 H Plt Count 151 MPV 10.4 Immature Gran % (Auto) 0.500 Neut % (Auto) 64.0 Lymph % (Auto) 25.3 [place] % (Auto) 7.0 Eos % (Auto) 3.0 Baso % (Auto) 0.2 Absolute Neuts (auto) 2.8 Absolute Lymphs (auto) 1.09 Nucleated RBC % 0 PT 25.1 H INR 2.2 APTT 36.8 H Sodium 142 Potassium 4.8 Chloride 115 H Carbon Dioxide 24.0 Anion Gap 3 L BUN 61 H Creatinine 1.36 H Estim Creat Clear Calc 59.68 Est GFR (MDRD) Af Amer 66 Est GFR (MDRD) Non-Af 55 L BUN/Creatinine Ratio 44.9 H Glucose 261 H Lactic Acid 1.4 Calcium 8.4 L Total Bilirubin 0.50 AST 16 ALT 18 Alkaline Phosphatase 95 Total Protein 6.2 L Albumin 3.0 L Globulin 3.2 Albumin/Globulin Ratio 0.9 Lipase 22 Blood Type B POSITIVE Antibody Screen NEGATIVE Crossmatch See Detail Radiography Diagnostic Testing: Clinical Impression(s) from Imaging Studies Abdomen/Pelvis CTA 08/06/24 09:46 IMPRESSION: Stable central right upper abdominal wall hernia. Scattered sigmoid diverticula. Electronically Signed: Lázaro Archer MD at 11:29 EST , Discharge Plan Triage Chief Complaint: GI Bleed ED Provider: Jesus Andersen Dx/Rx/DC Orders Clinical Impression: Acute GI bleeding, Anemia Prescriptions: No Action pantoprazole 40 mg tablet,delayed release (DR/EC) 40 mg PO QDAY losartan 100 mg tablet 100 mg PO DAILY cholecalciferol (vitamin D3) 25 mcg (1,000 unit) capsule 25 mcg PO DAILY albuterol sulfate 2.5 mg /3 mL (0.083 %) solution for nebulization 2.5 mg inhalation Q4H PRN (Reason: shortness of breath or wheezing) atorvastatin 40 mg Tablet 40 mg PO QHS ferrous sulfate 325 mg (65 mg iron) tablet 325 mg PO DAILY furosemide 40 mg Tablet 40 mg PO DAILY Qty: 0 0RF cyclobenzaprine 10 mg Tablet 10 mg PO Q8H PRN (Reason: Muscle Pain) insulin lispro [Humalog KwikPen Insulin] 100 unit/mL Insulin Pen 5 unit SUBCUT ACHS Rx Instructions: set 5 u in addition to SLIDING SCALE Centrum Silver Men [phone] mcg tablet 1 tab PO DAILY mirtazapine 7.5 mg tablet 7.5 mg PO QHS gabapentin 100 mg capsule 100 mg PO DAILY metoprolol succinate 25 mg tablet extended release 24 hr 25 mg PO DAILY Tradjenta 5 mg tablet 5 mg PO DAILY doxepin 50 mg capsule 50 mg PO DAILY insulin glargine-yfgn 100 unit/mL (3 mL) Insulin Pen 15 unit subcut QHS Renny (with collagen) 7-7-1.5 gram Powder In Packet 1 packet PO BIDCM Qty: 0 0RF acetaminophen 500 mg tablet 1,000 mg PO Q8H PRN (Reason: pain) aspirin 81 mg tablet,chewable 1 tab PO DAILY gabapentin 300 mg capsule 300 mg PO QHS insulin lispro [Humalog KwikPen Insulin] 100 unit/mL Insulin Pen 1 sliding scale dose subcut ACHS Protocol: 3. Sliding Scale Insulin Med Dosing Condition: 150-189 mg/dl = 1 unit Condition: 190-229 mg/dl = 2 units Condition: 230-269 mg/dl = 3 units Condition: 270-309 mg/dl = 4 units Condition: 310-349 mg/dl = 5 units Condition: 350-399 mg/dl = 6 units Condition: 400-449 mg/dl = 7 units Condition: Greater than 449 call physician Protocol Text: - Use for Total Daily Dose of Insulin 37-55 units - Obsese, infected, or steroid patients MEDIUM DOSING ALGORITHIM clopidogrel [Plavix] 75 mg tablet 75 mg PO DAILY Qty: 90 0RF Primary Care Provider: Saurabh Hernandez Chi Referrals: Saurabh Hernandez Chi, MD [Primary Care Provider] - Print Language: [place] Disposition Disposition: Acute Care Hospital [facility]
--- NOTE | 2024-08-06 09:46 | CT_ITS ---
STUDY: CTA ABDOMEN AND PELVIS WITH CONTRAST REASON FOR EXAM: Male, 73 years old. Gi bleed, red stool, had fem bypass RADIATION DOSAGE (If Supplied By Facility): CTDIvol = ( 39.61 ) mGy, DLP = ( 1189.21 ) mGycm TECHNIQUE: Transaxial images were obtained from the dome of the diaphragm to the symphysis pubis without oral contrast. IV 100mL Isovue-370 was administered. Sagittal and coronal images were reconstructed. 3-D images were reconstructed. Individualized dose optimization techniques were used for this CT. COMPARISON: Comparison is made with prior study dated December 11, 2022. FINDINGS: The visualized lung bases are unremarkable. The visualized portions of the heart are within normal limits. There is decreased attenuation of the liver consistent with steatosis. Normal gallbladder and extrahepatic biliary system. Normal spleen. Normal pancreas. Normal bilateral adrenal glands. Normal right kidney. Normal left kidney. Normal visualized stomach. Normal small intestine. There are scattered colonic diverticula consistent with diverticulosis. The appendix is visualized and appears normal. There is diffuse atherosclerotic calcification of the abdominal aorta and major visceral branches, without a demonstrated aneurysm. Normal inferior vena cava. Normal retroperitoneum. Normal urinary bladder. Prostate measures 3.9 cm x 5.4 cm. Central prostatic calcifications are seen. 3 large ventral hernia in the superior anterior abdomen containing nondilated transverse colon. There are diffuse degenerative changes of the visualized lumbar spine. CT/CTA Abd/Pelvis W/WO Contrast IMPRESSION: Stable central right upper abdominal wall hernia. Scattered sigmoid diverticula. Electronically Signed: Lázaro Archer MD at 11:29 EST ,
[2024-08-06] MEDS: 0.9% Normal Saline (1000mL) 1,000 ML 999 ML IV (10:04)
[2024-08-06] MEDS: Pantoprazole Sodium 40 MG in 0.9% Normal Saline (100mL MB+) 100 ML 330 MG IV ×2 (10:05→22:12)
[2024-08-06 10:09] LABS: Absolute Lymphocyte Count 1.09 X10^3/uL (0.83-4.51); Absolute Neutrophil Count 2.8 X10^3/uL (2.0-7.7); Basophil# 0.01 X10^3/uL; Basophil% 0.2 % (0-1); Eosinophil# 0.13 X10^3/uL; Hematocrit 21.2 % (40-54); Hemoglobin 6.5 g/dL (13.0-16.5); Lymphocyte # 1.09 X10^3/ul (0.83-4.51); Lymphocyte % 25.3 % (19-41); Mean Corp Hgb Conc 30.7 g/dL (32-36); Mean Corpuscular Hgb 29.8 pg (27.0-32.0); Mean Corpuscular Volume 97.2 fL (80-94); Mean Platelet Vol. 10.4 fl (6.2-12.0); NRBC Flagged by Analyzer 0 % (0-5); Neutrophil # 2.75 X10^3/uL (2.7-7.7); Platelet Count 151 K/mm3 (150-450); RBC Distribution Width CV 14.7 % (11.6-14.6); RBC Distribution Width SD 52.6 fl (35.1-43.9); Red Blood Count 2.18 M/mm3 (4.6-6.2); White Blood Count 4.3 K/mm3 (4.4-11.0)
[2024-08-06 10:19] LABS: International Normalized Ratio 2.2; Partial Thromboplast Time 36.8 Seconds (24.1-36.2); Prothrombin Time (Protime)PT. 25.1 SECONDS (11.7-14.9)
[2024-08-06 10:31] LABS: ALB/GLOB Ratio 0.9 RATIO (0.9-2.4); AST(SGOT) 16 U/L (15-37); Alanine Aminotransfer ALT/SGPT 18 U/L (16-61); Alkaline Phosphatase 95 U/L (45-117); Anion Gap 3 (5-15); BUN 61 mg/dL (7-18); BUN/Creat Ratio 44.9 RATIO (10-20); Calcium,Total 8.4 mg/dL (8.5-10.1); Chloride 115 mmol/L (98-107); Creatinine, Serum 1.36 mg/dL (0.70-1.30); EST Glomerular Filtration Rate 55 mL/min (>60); Est Glom Filt Rate - Afr Amer 66 mL/min (>60); Estimated Creatinine Clearance 59.68 ml/min; Globulin 3.2 g/dL (2.2-4.2); Glucose 261 mg/dL (74-106); Lipase 22 U/L (13-75); Potassium 4.8 mmol/L (3.5-5.1); Protein, Total 6.2 g/dL (6.4-8.2); Sodium Level 142 mmol/L (136-145)
--- NOTE | 2024-08-06 10:31 | CM.ED ---
Social work Reason for referral: validation of AD Referral source: case find This SW identified need to validate patient's advance directives. Per patient's chart, advance directives were signed on 07/20/19 naming patient's cousin, Mariam Bai, as first HCPOA and patient's sister, Rabia Myers, as second HCPOA. This SW entered patient's room, introducing self and role at [facility]. Patient accepted SW visit and confirmed patient's advance directives were correct. Patient stated patient's cousin and sister were unaware that patient was present in the ED currently, but patient denied wanting to call them at this time. Patient stated probably getting sent upstairs due to presenting to the [facility] ED yesterday, 08/05, for the same chief complaint. Patient denied further needs at this time; SW to follow as needed. Cathy Cowan, [employer], [employer]
[2024-08-06 10:40] LABS: Lactic Acid 1.4 mmol/L (0.4-1.9)
--- NOTE | 2024-08-06 12:00 | HP.PCM.HOS_ITS ---
HPI - General General Date of Admission: 08/06/24 Date of Service: 08/06/24 Chief Complaint: GI bleed. HPI Narrative RAPHAEL HADDAD, parvin a 73 M was sent here from [facility] for GI bleed. Patient had red stool with passing dime sized blood clots. Patient was seen in the ED yesterday for the for the same reason and was determined it was not blood because of stool for occult blood was negative. Patient also had endoscopy yesterday and was found internal hemorrhoids with no active bleeding. Stool was brownish in color, H&H 7.7/25%. Patient came back today with worse hemoglobin 6.5/21%. Denies abdominal pain, dizziness lightheadedness, near-syncope. Denies burning micturition. Patient has multiple comorbidities including CAD, heart failure, mechanical aortic valve and is on baby aspirin, clopidogrel and warfarin. Vitals in the ED shows heart rate and blood pressure controlled. No hypoxia. Patient is further admitted with 2 units of PRBC and IV PPI [facility] Medical History Non-pressure chronic ulcer of right heel and midfoot with fat layer exposed Non-pressure chronic ulcer of other part of right foot with bone involvement without evidence of necrosis Non-pressure chronic ulcer of right heel and midfoot with necrosis of muscle Non-pressure chronic ulcer of other part of right foot with muscle involvement without evidence of necrosis Non-pressure chronic ulcer of other part of right lower leg with fat layer exposed Diabetes mellitus PVD (peripheral vascular disease) Anemia Diabetic foot infection PAOD (peripheral arterial occlusive disease) Trigger finger of both hands Amputation of second toe, right, traumatic Aftercare following surgery of the circulatory system Anemia Hyperbilirubinemia Nicotine dependence, cigarettes, uncomplicated Atherosclerosis of [place] arteries of right leg with ulceration of other part of foot Non-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 Peripheral vascular occlusive disease Diabetic ulcer of toe of left foot associated with type 2 diabetes mellitus Ulcer of toe of left foot Atherosclerosis of [place] arteries of left leg with ulceration of other part of foot Wears glasses Alcohol use Insulin dependent diabetes mellitus Back pain Syncope Dietary restriction Cardiology follow-up encounter History of rheumatic fever ZOFIA (acute kidney injury) Recurrent right pleural effusion Osteomyelitis of toe of right foot Non-pressure chronic ulcer of other part of left foot with fat layer exposed Acute exacerbation of CHF (congestive heart failure) Anticoagulant long-term use Acute and chronic respiratory failure with hypercapnia Encephalopathy acute Acute hypercapnic respiratory failure Atherosclerosis of lower extremity with ulceration COPD (chronic obstructive pulmonary disease) Inability to walk Adult failure to thrive CHF (congestive heart failure) Smoker Congestive heart failure Sternal wound infection 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 MSSA (methicillin susceptible Staphylococcus aureus) infection History of non-ST elevation myocardial infarction (NSTEMI) (04/23/20) Non-healing surgical wound (05/01/20) [facility] current use of 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 Chronic combined systolic and diastolic CHF (congestive heart failure) Type 2 diabetes mellitus Atherosclerosis of coronary artery without angina pectoris Nicotine dependence Ischemic cardiomyopathy Secondary pulmonary arterial hypertension Essential (primary) hypertension Nonrheumatic aortic (valve) stenosis 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 Osteomyelitis Diabetic foot infection Bleeding disorder Ulcer of right foot with fat layer exposed COPD (chronic obstructive pulmonary disease) Hyperlipidemia DVT (deep venous thrombosis) GERD (gastroesophageal reflux disease) Home Medications ?Medication ?Instructions ?Recorded ?Last Taken ?Type atorvastatin 40 mg tablet 40 mg PO QHS cholesterol 11/12/20 11/03/23 History ferrous sulfate 325 mg (65 mg 325 mg PO DAILY 10/29/22 11/02/23 History iron) tablet furosemide 40 mg tablet 40 mg PO DAILY #0 tabs 11/12/22 11/02/23 Rx cyclobenzaprine 10 mg tablet 10 mg PO Q8H PRN Muscle Pain 12/11/22 11/02/23 History insulin lispro 100 unit/mL 5 unit subcut ACHS 12/11/22 11/03/23 History subcutaneous pen (Humalog KwikPen (U-100) Insulin) pantoprazole 40 mg tablet,delayed 40 mg PO QDAY 10/04/23 11/02/23 History release doxepin 50 mg capsule 50 mg PO DAILY 10/28/23 11/02/23 History gabapentin 100 mg capsule 100 mg PO DAILY 10/28/23 11/02/23 History insulin glargine-yfgn 100 unit/mL 15 unit subcut QHS 10/28/23 11/03/23 History (3 mL) subcutaneous pen linagliptin 5 mg tablet (Tradjenta) 5 mg PO DAILY 10/28/23 11/03/23 History metoprolol succinate 25 mg 25 mg PO DAILY 10/28/23 11/03/23 History tablet,extended release 24 hr mirtazapine 7.5 mg tablet 7.5 mg PO QHS 10/28/23 11/03/23 History dgqqvzeg-jt-ibjgc 300 mcg-K 60 1 tab PO DAILY 10/28/23 11/02/23 History mcg-lycop 600 mcg-lutein 300 mcg tablet (Centrum Silver Men) cholecalciferol (vitamin D3) 25 25 mcg PO DAILY 10/31/23 11/02/23 History mcg (1,000 unit) capsule losartan 100 mg tablet 100 mg PO DAILY 10/31/23 11/03/23 History clopidogrel 75 mg tablet (Plavix) 75 mg PO DAILY #90 tabs 12/21/23 Unknown Rx arginine 7 gram-glutam 7 1 packet PO BIDCM #0 ea 03/02/24 Unknown Rx gram-CaHMB 1.5 glfn-jukiy-be-min oral pwd pkt (Renny (with collagen)) albuterol sulfate 2.5 mg/3 mL 2.5 mg inhalation Q4H PRN 07/19/24 Unknown History (0.083 %) solution for nebulization shortness of breath or wheezing acetaminophen 500 mg tablet 1,000 mg PO Q8H PRN pain 08/06/24 Unknown History aspirin 81 mg chewable tablet 1 tab PO DAILY 08/06/24 Unknown History gabapentin 300 mg capsule 300 mg PO QHS 08/06/24 Unknown History insulin lispro 100 unit/mL 1 sliding scale dose subcut ACHS 08/06/24 Unknown History subcutaneous pen (Humalog KwikPen (U-100) Insulin) Allergy/AdvReac Type Severity Reaction Status Date / Time No Known Allergies Allergy Verified 08/06/24 09:02 Family History Mother Diabetes Heart disease Father Diabetes Surgical History History of amputation History of incision and drainage (09/22/20) History of angioplasty of peripheral vessel (01/02/10) History of lumbar laminectomy History of femoropopliteal bypass (2008) H/O coronary artery bypass surgery (05/01/20) History of mechanical aortic valve replacement History of left heart catheterization (04/23/20) Social History household members: significant other Smoking Status: Light Smoker (<10/day) alcohol intake: never substance use type: does not use caffeine: No ROS ROS Narrative Constitutional: Reports fatigue and weakness. No fever. HEENT: Reports systems reviewed and no addt'l complaints, except as documented Respiratory/Chest: No acute shortness of breath or respiratory distress or wheezing. CVS: Open heart surgery. Denies chest pain pressure or tightness. Gastrointestinal: Denies vomiting, hematemesis but red blood with clots as mentioned HPI. No abdominal pain Genitourinary: Denies burning urination or new urinary tract symptoms Musculoskeletal: Chronic BMT arthritis denies acute joint pain or limited range of motion. No acute injury Neurologic: Denies seizure-like symptoms. skin: No ulcer. No rash Endocrinology: Reports systems reviewed and no addt'l complaints, except as documented Hematologic/Lymphatic: Reports systems reviewed and no addt'l complaints, except as documented Rest 14 ROS are negative except as mentioned in HPI Vital Signs Vital Signs Vital Signs: 08/06/24 08:57 08/06/24 10:56 Temperature 98.7 F Temperature Source Oral Pulse Rate 68 65 Respiratory Rate 25 H 18 Blood Pressure 116/40 L 134/62 H Blood Pressure Mean 65 86 Pulse Ox 97 100 Oxygen Delivery Method Room Air Room Air Weight Weight: 217 lb 13.067 oz Body Mass Index (BMI) 30.4 Results Lab / Micro Data 08/06/24 09:50 08/06/24 09:50 Labs: Laboratory Results - last 24 hr 08/06/24 09:50: WBC 4.3 L, RBC 2.18 L, Hgb 6.5 L, Hct 21.2 L, MCV 97.2 H, MCH 29.8, MCHC 30.7 L, RDW Std Deviation 52.6 H, RDW Coeff of Estrada 14.7 H, Plt Count 151, MPV 10.4, Immature Gran % (Auto) 0.500, Neut % (Auto) 64.0, Lymph % (Auto) 25.3, [place] % (Auto) 7.0, Eos % (Auto) 3.0, Baso % (Auto) 0.2, Absolute Neuts (auto) 2.8, Absolute Lymphs (auto) 1.09, Nucleated RBC % 0, PT 25.1 H, INR 2.2, APTT 36.8 H, Sodium 142, Potassium 4.8, Chloride 115 H, Carbon Dioxide 24.0, A nion Gap 3 L, BUN 61 H, Creatinine 1.36 H, Estim Creat Clear Calc 59.68, Est GFR (MDRD) Af Amer 66, Est GFR (MDRD) Non-Af 55 L, BUN/Creatinine Ratio 44.9 H, G lucose 261 H, Calcium 8.4 L, Total Bilirubin 0.50, AST 16, ALT 18, Alkaline Phosphatase 95, Total Protein 6.2 L, Albumin 3.0 L, Globulin 3.2, Albumin/Globulin Ratio 0.9, Lipase 22, Blood Type B POSITIVE, Antibody Screen NEGATIVE, Crossmatch See Detail 08/06/24 09:58: Lactic Acid 1.4 Micro: Microbiology 08/06/24 09:45 Stool Stool Occult Blood ([facility]) - Final Imaging Radiology Impression Abdomen/Pelvis CTA 08/06/24 09:46 IMPRESSION: Stable central right upper abdominal wall hernia. Scattered sigmoid diverticula. Electronically Signed: Lázaro Archer MD at 11:29 EST , Assessment & Plan Assessment/Plan (1) Acute GI bleeding: (2) Anemia: PLAN: Plan Patient is 73-year-old gentleman being admitted for GI bleed for last 2 days with severe anemia 1. Severe anemia, acute on chronic anemia due to GI blood loss: Patient is being admitted to PCU. H&H 6.5/21%. Platelet count 151 K. 2 units of PRBCs ordered. Patient had 1 L of IV normal saline bolus in ED and does not need further as he has significant heart failure and multiple cardiac comorbidity. Monitored H&H every 6 hourly after PRBC transfusion. Lasix 20 mg IV as needed between 2 transfusion for fluid overload. Pantoprazole 40 mg IV every 12 hourly. GI is consulted. Clear liquids. Plan for EGD tomorrow a.m. hold antiplatelet or 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 agent, aspirin Plavix and morphine. Patient baseline hemoglobin is around 8 g%. CT abdomen pelvis CTA does not show any acute abnormality. 2. Chronic systolic and diastolic heart failure, history of thoracocentesis for right pleural effusion, CAD status post CABG 04/2020, history of mechanical [facility] AVR,: Hold baby aspirin, Plavix and warfarin as hemoglobin is very low as mentioned above. INR 2.2. PTT 36.8. Vitamin K was not given. No need for giving FFP. Chest x-ray ordered Patient follows with vascular surgeon Dr. Kendrick May and [facility], Dhara Casas Last echo in November 07 shows EF 40 to 45%, normal appearing bioprosthetic aortic valve. Mild MR, mild TR. 4. PAOD s/p fempop bypass: Patient follows Dr. Kendrick May. Right HERNESTO 0.67, moderate arterial insufficiency, Doppler PVR diminished in right ankle. Left HERNESTO 1.18 normal. Arterial duplex in July 10 patent left profunda PT bypass with no stenosis identified. 5. Restrictive lung disease: Patient last PFT in October 2022 showed moderately severe restrictive ventilatory defect with symmetric reduction in DLCO. Some stigmata of concomitant small liver disease, less consistent with COPD. Chest x-ray ordered 6. History of DVT: Patient on warfarin as an outpatient. Currently on hold 7. Type 2 diabetes mellitus: Glucose is high at 261. Patient on Lantus insulin and sliding scale, regimen. Accu-Chek before meals and at bedtime with Humalog sliding scale coverage and hypoglycemia protocol. 8. DVT prophylaxis: Pharmacological prophylaxis contraindicated. Bilateral SCDs Living will/advanced directive/end of life care: Patient does have living will or advanced directive. Mariam is power of ip technology transactions attorney for health. After discussion of benefits/risks procedures involved with full code, DNR CC arrest and DNR CC, the patient opted for full code. Patient does want artificial life support including intubation, tube feed, ventilator and/chest compression, central venous catheter, vasopressor and DC shock if needed Total time spent in [id number] encounter in discussion of advanced directive 17 minutes. Microbiology Past 72 Hours 08/06/24 09:45 Stool Stool Occult Blood ([facility]) - Final Laboratory Results 08/06/24 09:50: WBC 4.3 L, RBC 2.18 L, Hgb 6.5 L, Hct 21.2 L, MCV 97.2 H, MCH 29.8, MCHC 30.7 L, RDW Std Deviation 52.6 H, RDW Coeff of Estrada 14.7 H, Plt Count 151, MPV 10.4, Immature Gran % (Auto) 0.500, Neut % (Auto) 64.0, Lymph % (Auto) 25.3, [place] % (Auto) 7.0, Eos % (Auto) 3.0, Baso % (Auto) 0.2, Absolute Neuts (auto) 2.8, Absolute Lymphs (auto) 1.09, Nucleated RBC % 0, PT 25.1 H, INR 2.2, APTT 36.8 H, Sodium 142, Potassium 4.8, Chloride 115 H, Carbon Dioxide 24.0, A nion Gap 3 L, BUN 61 H, Creatinine 1.36 H, Estim Creat Clear Calc 59.68, Est GFR (MDRD) Af Amer 66, Est GFR (MDRD) Non-Af 55 L, BUN/Creatinine Ratio 44.9 H, G lucose 261 H, Calcium 8.4 L, Total Bilirubin 0.50, AST 16, ALT 18, Alkaline Phosphatase 95, Total Protein 6.2 L, Albumin 3.0 L, Globulin 3.2, Albumin/Globulin Ratio 0.9, Lipase 22, Blood Type B POSITIVE, Antibody Screen NEGATIVE, Crossmatch See Detail 08/06/24 09:58: Lactic Acid 1.4 08/06/24 13:05: Urine Color Yellow, Urine Clarity Clear, Urine pH 6.0, Ur Specific [place] 1.015, Urine Protein 15 H, Urine Glucose (UA) Normal, Urine Ketones Negative, Urine Occult Blood Negative, Urine Nitrite Negative, Urine Bilirubin Negative, Urine Urobilinogen Normal, Ur Leukocyte Esterase Negative, Urine RBC Pending, Urine WBC Pending, Ur Squamous Epith Cells Pending, Urine Bacteria Pending, Urine Mucus Pending Clinical Impression(s) from Imaging Studies Abdomen/Pelvis CTA 08/06/24 09:46 IMPRESSION: Stable central right upper abdominal wall hernia. Scattered sigmoid diverticula. Charges/Coding Visit Charges Inpatient E&M: 71771 Init Hosp L3 Procedures Hospitalists Procedures: 14574 Advncd Care Plan 30 Min
--- NOTE | 2024-08-06 12:47 | CASEMGMT ---
Care Management Face to Face with patient for initial transition planning/care coordination assessment in the ED. This pattern chart writer introduced self and role at [facility]. Patient alert and oriented. Patient willing to participate in assessment and is able to answer all questions for patient appropriately. Care providers, pharmacy, and demographics verified. Admitting Diagnosis: GI bleed Other diagnosis history: chronic systolic and diastolic heart failure, R pleural effusion, type 2 diabetes, DVT PCP: Dr. Hernandez Specialists: Dr. Lyons, podiatry Preferred Pharmacy: [facility] by mail. [facility] (second choice). Insurance: [facility] Medicare Dual Complete (primary). [facility] Community Plan (secondary). Prescription Benefit: yes Living Will/HPOA: yes, patient states patient's cousin, Mariam, is first HCPOA and patient's sister, Rabia, is second HCPOA. These documents are on patient's chart. LNOK: biological sister, Rabia. Patient reports having adopted siblings: 1 brother and 2 sisters. Living Arrangements: currently at [facility], but previously lived with (and wants to return to) patient's cousin's (Mariam) house. Patient's cousin lives in a 1 story duplex with a ramp to enter and patient reports being independent with all ADLs prior to patient's stay at [facility]. Transportation: patient denies driving anymore. Patient reports getting to medical appointments via [facility] insurance transportation. DME: at cousin's home, patient has access to: wheelchair, ramp, shower chair (tub), rollator, walker, glucometer and testing strips, medical alert button. Incontinence supplies provided through [facility]. HHC: patient states a nurse through [facility] comes once a month. SNF/Rehab: currently staying at [facility]. Patient reports a previous stay at the [facility]. Community Resources: home delivered meals (could not recall the agency, though thought it could be through [facility] as well). Behavioral Health History: patient denies Patient goals: Patient states a desire to discharge home to patient's cousin's home, but expresses an understanding that patient will be returning to [facility] for continued rehab due to patient's foot injury. Disposition Plan: admission to acute; RN CM/SW to follow for discharge planning needs that may arise. Cathy Cowan, WEIGHER ALLOY, PORTER HEAD
[2024-08-06 13:08] LABS: Bacteria 0 SEEN /hpf (None Seen); Mucous, Urine 0 SEEN /hpf (<or=2+); Red Blood Cells-Urine 0 SEEN /hpf (0-5); Squamous Epithelial Cells - UA 0 SEEN /hpf (0-5); White Blood Cells 0 SEEN /hpf (0-5)
[2024-08-06 13:09] LABS: Color, Urine Yellow (Yellow); Glucose, Dipstick Normal (Normal); Ketone-Dipstick Negative (Negative); Leukocyte Esterase-Dipstick Negative /ul (Negative); Nitrite-Dipstick Negative (Negative); Occult Blood-Urine Negative /ul (Negative); Protein-Dipstick 15 mg/dl (Negative); Specific Gravity, Urine 1.015 (1.002-1.030); Urine Bilirubin Dipstick Negative (Negative); Urine Clarity Clear (Clear); Urine Urobilinogen Normal (Normal)
--- NOTE | 2024-08-06 13:25 | RAD_ITS ---
STUDY: X-RAY CHEST REASON FOR EXAM: Male, 73 years old. SOB TECHNIQUE: Single AP portable view of the chest. COMPARISON: Comparison is made with prior study dated December 14, 2022. FINDINGS: EKG electrodes are seen. Pleural-parenchymal changes are seen at the right lung base suggestive of a small right pleural effusion with right basilar atelectasis and/or infiltrate. Follow-up recommended. The left lung is clear. Normal size heart. Normal mediastinum and thu. Normal visualized pulmonary arteries. Normal visualized aortic arch and descending thoracic aorta. There are diffuse degenerative changes of the visualized thoracic spine. Normal visualized ribs, clavicles, and shoulders. There is no demonstrated abnormality of the visualized soft tissue structures of the upper abdomen. RAD/Chest 1 View IMPRESSION: Pleural parenchymal changes at the right lung base. Follow-up recommended. Electronically Signed: Lázaro Archer MD at 13:55 EST ,
--- NOTE | 2024-08-06 13:44 | EKG12_ITS ---
Test Reason : SOB Blood Pressure : */* mmHG Vent. Rate : 68 BPM Atrial Rate : * BPM P-R Int : * ms QRS Dur : 90 ms QT Int : 404 ms P-R-T Axes : * 38 30 degrees QTcB Int : 429 ms Normal sinus rhythm Low voltage QRS Abnormal ECG When compared with ECG of 05-Aug-2024 09:42, Junctional rhythm has replaced Sinus rhythm Confirmed by TIKA CHAPA, SHEN ([id number]), helium arc welder RICK GARCIA ([id number]) on 08/13/2024 2:14:34 PM Referred By: Confirmed By: SHEN VILLELA MD
[2024-08-06] MEDS: Acetaminophen 500 MG Tablet 1000 MG PO (15:34)
[2024-08-06] MEDS: Insulin Lispro 100 UNIT/ML INSULN.PEN SC ×4 (16:51→22:17)
[2024-08-06] MEDS: Juven (unflavored) Packet 1 PACKET PO (16:51)
[2024-08-06 16:53] LABS: Bedside Glucose 198 mg/dL (74-106)
[2024-08-06 17:31] LABS: Hematocrit 24.5 % (40-54); Hemoglobin 7.9 g/dL (13.0-16.5)
[2024-08-06] MEDS: 0.9% Saline Lock 10 ML Syringe IV (22:12)
[2024-08-06] MEDS: Mirtazapine 15 MG Tablet 7.5 MG PO (22:13)
[2024-08-06] MEDS: Gabapentin 300 MG Capsule PO (22:14)
[2024-08-06] MEDS: Atorvastatin Calcium 40 MG Tablet PO (22:14)
[2024-08-06] MEDS: Insulin Glargine-YFGN 100 UNIT/ML Pen 12 UNIT SC (22:16)
[2024-08-06 23:18] LABS: Hematocrit 23.7 % (40-54); Hemoglobin 7.7 g/dL (13.0-16.5)
[2024-08-06 23:20] LABS: Bedside Glucose 176 mg/dL (74-106)
--- NOTE | 2024-08-06 23:34 | EX.PCM.CON.G ---
HPI Consult Data Date of Consult: 08/06/24 HPI Narrative Reason for Consultation: GI bleed HPI Narrative: RAPHAEL HADDAD, is a 73-year-old male with a past medical history of CABG and aortic valve replacement with [place] mechanical valve 21 mm on May 01, 2020, peripheral vascular disease, diabetes, CHF, COPD, chronic wounds, DVT on warfarin who presents to the emergency department chief complaint of having bright red blood in his bowel movement this morning. Patient states that he had a bowel movement around 830 this morning and noted that he had bright red blood. Per the nurse practitioner at the nursing facility he had red stool with dime size clots. Therefore they sent him here for further evaluation management. Stool was brownish in color, H&H 7.7/25%. His hemoglobin was rechecked and it was worse with a hemoglobin 6.5/21%. Denies abdominal pain, dizziness lightheadedness, near-syncope. Denies burning micturition. Patient is on baby aspirin, clopidogrel and warfarin. [facility] Medical History Non-pressure chronic ulcer of right heel and midfoot with fat layer exposed Non-pressure chronic ulcer of other part of right foot with bone involvement without evidence of necrosis Non-pressure chronic ulcer of right heel and midfoot with necrosis of muscle Non-pressure chronic ulcer of other part of right foot with muscle involvement without evidence of necrosis Non-pressure chronic ulcer of other part of right lower leg with fat layer exposed Diabetes mellitus PVD (peripheral vascular disease) Anemia Diabetic foot infection PAOD (peripheral arterial occlusive disease) Trigger finger of both hands Amputation of second toe, right, traumatic Aftercare following surgery of the circulatory system Anemia Hyperbilirubinemia Nicotine dependence, cigarettes, uncomplicated Atherosclerosis of [place] arteries of right leg with ulceration of other part of foot Non-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 Peripheral vascular occlusive disease Diabetic ulcer of toe of left foot associated with type 2 diabetes mellitus Ulcer of toe of left foot Atherosclerosis of [place] arteries of left leg with ulceration of other part of foot Wears glasses Alcohol use Insulin dependent diabetes mellitus Back pain Syncope Dietary restriction Cardiology follow-up encounter History of rheumatic fever ZOFIA (acute kidney injury) Recurrent right pleural effusion Osteomyelitis of toe of right foot Non-pressure chronic ulcer of other part of left foot with fat layer exposed Acute exacerbation of CHF (congestive heart failure) Anticoagulant long-term use Acute and chronic respiratory failure with hypercapnia Encephalopathy acute Acute hypercapnic respiratory failure Atherosclerosis of lower extremity with ulceration COPD (chronic obstructive pulmonary disease) Inability to walk Adult failure to thrive CHF (congestive heart failure) Smoker Congestive heart failure Sternal wound infection 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 MSSA (methicillin susceptible Staphylococcus aureus) infection History of non-ST elevation myocardial infarction (NSTEMI) (04/23/20) 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 use of 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 Chronic combined systolic and diastolic CHF (congestive heart failure) Type 2 diabetes mellitus Atherosclerosis of coronary artery without angina pectoris Nicotine dependence Ischemic cardiomyopathy Secondary pulmonary arterial hypertension Essential (primary) hypertension Nonrheumatic aortic (valve) stenosis 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 Osteomyelitis Diabetic foot infection Bleeding disorder Ulcer of right foot with fat layer exposed COPD (chronic obstructive pulmonary disease) Hyperlipidemia DVT (deep venous thrombosis) GERD (gastroesophageal reflux disease) Home Medications ?Medication ?Instructions ?Recorded ?Last Taken ?Type atorvastatin 40 mg tablet 40 mg PO QHS cholesterol 11/12/20 11/03/23 History ferrous sulfate 325 mg (65 mg 325 mg PO DAILY 10/29/22 11/02/23 History iron) tablet furosemide 40 mg tablet 40 mg PO DAILY #0 tabs 11/12/22 11/02/23 Rx cyclobenzaprine 10 mg tablet 10 mg PO Q8H PRN Muscle Pain 12/11/22 11/02/23 History insulin lispro 100 unit/mL 5 unit subcut ACHS 12/11/22 11/03/23 History subcutaneous pen (Humalog KwikPen (U-100) Insulin) pantoprazole 40 mg tablet,delayed 40 mg PO QDAY 10/04/23 11/02/23 History release doxepin 50 mg capsule 50 mg PO DAILY 10/28/23 11/02/23 History gabapentin 100 mg capsule 100 mg PO DAILY pain 10/28/23 08/07/24 History insulin glargine-yfgn 100 unit/mL 15 unit subcut QHS 10/28/23 11/03/23 History (3 mL) subcutaneous pen linagliptin 5 mg tablet (Tradjenta) 5 mg PO DAILY 10/28/23 11/03/23 History metoprolol succinate 25 mg 25 mg PO DAILY bp 10/28/23 08/07/24 History tablet,extended release 24 hr mirtazapine 7.5 mg tablet 7.5 mg PO QHS 10/28/23 11/03/23 History wnrjbfkp-fi-pbias 300 mcg-K 60 1 tab PO DAILY 10/28/23 11/02/23 History mcg-lycop 600 mcg-lutein 300 mcg tablet (Centrum Silver Men) cholecalciferol (vitamin D3) 25 25 mcg PO DAILY 10/31/23 11/02/23 History mcg (1,000 unit) capsule losartan 100 mg tablet 100 mg PO DAILY 10/31/23 11/03/23 History clopidogrel 75 mg tablet (Plavix) 75 mg PO DAILY #90 tabs 12/21/23 08/05/24 Rx arginine 7 gram-glutam 7 1 packet PO BIDCM #0 ea 03/02/24 Unknown Rx gram-CaHMB 1.5 acef-ydprf-et-min oral pwd pkt (Renny (with collagen)) albuterol sulfate 2.5 mg/3 mL 2.5 mg inhalation Q4H PRN 07/19/24 Unknown History (0.083 %) solution for nebulization shortness of breath or wheezing acetaminophen 500 mg tablet 1,000 mg PO Q8H PRN pain 08/06/24 Unknown History aspirin 81 mg chewable tablet 1 tab PO DAILY 08/06/24 Unknown History gabapentin 300 mg capsule 300 mg PO QHS 08/06/24 Unknown History insulin lispro 100 unit/mL 1 sliding scale dose subcut ACHS 08/06/24 Unknown History subcutaneous pen (Humalog KwikPen (U-100) Insulin) Allergy/AdvReac Type Severity Reaction Status Date / Time No Known Allergies Allergy Verified 08/06/24 09:02 Family History Mother Diabetes Heart disease Father Diabetes Surgical History History of amputation History of incision and drainage (09/22/20) History of angioplasty of peripheral vessel (01/02/10) History of lumbar laminectomy History of femoropopliteal bypass (2008) H/O coronary artery bypass surgery (05/01/20) History of mechanical aortic valve replacement History of left heart catheterization (04/23/20) Social History household members: significant other Smoking Status: Light Smoker (<10/day) alcohol intake: never substance use type: does not use caffeine: No ROS Constitutional Constitutional: Denies fatigue, fever(s), poor appetite, weight gain or weight loss Gastrointestinal Gastrointestinal: Denies belching, bloating, change in bowel habits, change in stool character, chewing difficulty, coffee ground emesis, constipation, cramping, diarrhea, dyspepsia, dysphagia, early satiety, excessive flatus, fecal incontinence, heartburn, hematemesis, hematochezia, hemorrhoids, loose stools, melena, nausea, odynophagia, rectal bleeding, tenesmus, vomiting or weight changes Physical Exam Const alert, oriented x3, no apparent distress and healthy appearing General Appearance: cooperative GI normal to inspection, nondistended, normoactive bowel sounds, soft to palpation, non-tender and non-distended Percussion: normal to percussion Rectal Exam: deferred Lab / Micro Data 08/07/24 06:05 08/07/24 06:05 Labs: Laboratory Results - last 24 hr 08/06/24 09:50: Crossmatch See Detail 08/06/24 16:32: POC Glucose 198 H 08/06/24 17:23: Hgb 7.9 L, Hct 24.5 L 08/06/24 22:15: POC Glucose 176 H 08/06/24 23:11: Hgb 7.7 L, Hct 23.7 L 08/07/24 06:02: POC Glucose 103 08/07/24 06:05: WBC 4.6, RBC 2.44 L, Hgb 7.3 L, Hct 23.9 L, MCV 98.0 H, MCH 29.9, MCHC 30.5 L, RDW Std Deviation 54.6 H, RDW Coeff of Estrada 15.2 H, Plt Count 150, MPV 10.3, Immature Gran % (Auto) 0.400, Neut % (Auto) 59.3, Lymph % (Auto) 29.0, [place] % (Auto) 8.5, Eos % (Auto) 2.6, Baso % (Auto) 0.2, Absolute Neuts (auto) 2.7, Absolute Lymphs (auto) 1.33, Nucleated RBC % 0, PT 24.5 H, INR 2.2, APTT 37.8 H, Sodium 140, Potassium 4.3, Chloride 118 H, Carbon Dioxide 20.0 L, Anion Gap 2 L, BUN 42 H, Creatinine 0.97, Estim Creat Clear Calc 83.44, Est GFR (MDRD) Af Amer 98, Est GFR (MDRD) Non-Af 81, BUN/Creatinine Ratio 43.4 H, Glucose 100, Hemoglobin A1c 6.4 H, Calcium 8.5 08/07/24 11:31: POC Glucose 98 Assessment & Plan Assessment/Plan (1) Acute GI bleeding: (2) Anemia: PLAN: Plan Patient is 73-year-old gentleman being admitted for GI bleed for last 2 days with severe anemia The differential diagnosis for his severe anemia, acute on chronic anemia does include GI blood loss. He will undergo an upper endoscopy to evaluate his upper GI tract. Depending on what the upper GI tract endoscopy shows he may need a colonoscopy plus minus a capsule endoscopy. He had a CT angiography did not show any signs of active bleeding.:%. Platelet count 151 K. 2 units of PRBCs ordered. Plan for EGD tomorrow a.m. hold antiplatelet or 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 agent, aspirin Plavix and morphine. Patient baseline hemoglobin is around 8 g%. CT abdomen pelvis CTA does not show any acute abnormality. Patient was explained alternatives including not withstanding bleeding, infection, sepsis, perforation, need emergent urgent . He will have an ASA of 3. Charges/Coding Visit Charges Inpatient E&M: 60575 Init Hosp L3
[2024-08-07] VITALS (15 sets, daily range): BP systolic 109–145; BP diastolic 47–79; PULSE 63–78; RESP 12–18; TEMP 36.4–37.1; O2SAT 96–100; BMI 30.2
--- NOTE | 2024-08-07 | EGD_PTH ---
PATIENT: RAPHAEL HADDAD LOC: [facility] U#:[id number] AGE/SX: 73/M ROOM: [facility] RE08/06/[address]: Dr. Kartik Avila MD : 1950 BED: 1 DIS: 08/15/2024 SPEC #: [id number] RECD: 08/08/24 09:11 STATUS: RICH REQ #: [id number] MATIAS: 08/07/24 00:[address]: Anatoly Moss DEPT: SURGICAL PATHOLOGY RECD BY: Jesús Villegas ENTERED: 08/08/24 09:11 SP TYPE: EGD BIOPSY OTHR DR: Dr. Roverto Lyons, DPM MD Dr. Saurabh Bravo Chi, MD Tissues: Duodenum, NOS Procedures: Surgery Specimen Level IV Comments: @ Ordering doctor for SUIV edited from to @ by DORA at 08/08/24 1005 @ Submitting doctor edited from to @ by DORA at 08/08/24 1005 HEADER OPERATION: EGD with biopsy PRE-OP DIAGNOSIS: GI bleed TISSUE SUBMITTED: Duodenum biopsy MICROSCOPIC DIAGNOSIS Duodenum, biopsy: Fragments of duodenal mucosa, no pathologic diagnosis. 08/09/2024 MICROSCOPIC DESCRIPTION Slides are reviewed. GROSS DESCRIPTION Received in fixative is one container labeled with the patient's name and designated Duodenum biopsy. The specimen consists of two irregular fragments of light brown soft tissue that in aggregate measure 0.9 x 0.5 x 0.1 cm. The specimen is totally submitted in one cassette. / 08/08/2024 TC:4 CPT:80106
[2024-08-07 06:41] LABS: International Normalized Ratio 2.2; Partial Thromboplast Time 37.8 Seconds (24.1-36.2); Prothrombin Time (Protime)PT. 24.5 SECONDS (11.7-14.9)
[2024-08-07 06:47] LABS: Absolute Lymphocyte Count 1.33 X10^3/uL (0.83-4.51); Absolute Neutrophil Count 2.7 X10^3/uL (2.0-7.7); Basophil# 0.01 X10^3/uL; Basophil% 0.2 % (0-1); Eosinophil# 0.12 X10^3/uL; Eosinophils% 2.6 % (0-5); Hematocrit 23.9 % (40-54); Hemoglobin 7.3 g/dL (13.0-16.5); Lymphocyte # 1.33 X10^3/ul (0.83-4.51); Mean Corp Hgb Conc 30.5 g/dL (32-36); Mean Corpuscular Hgb 29.9 pg (27.0-32.0); Mean Platelet Vol. 10.3 fl (6.2-12.0); Monocyte# 0.39 X10^3/uL; Monocyte% 8.5 % (0-10); NRBC Flagged by Analyzer 0 % (0-5); Neutrophil # 2.72 X10^3/uL (2.7-7.7); Neutrophil % 59.3 % (47-70); Platelet Count 150 K/mm3 (150-450); RBC Distribution Width CV 15.2 % (11.6-14.6); RBC Distribution Width SD 54.6 fl (35.1-43.9); Red Blood Count 2.44 M/mm3 (4.6-6.2); White Blood Count 4.6 K/mm3 (4.4-11.0)
[2024-08-07 06:48] LABS: Bedside Glucose 103 mg/dL (74-106)
[2024-08-07 06:54] LABS: Anion Gap 2 (5-15); BUN 42 mg/dL (7-18); BUN/Creat Ratio 43.4 RATIO (10-20); Calcium,Total 8.5 mg/dL (8.5-10.1); Chloride 118 mmol/L (98-107); Creatinine, Serum 0.97 mg/dL (0.70-1.30); EST Glomerular Filtration Rate 81 mL/min (>60); Est Glom Filt Rate - Afr Amer 98 mL/min (>60); Estimated Creatinine Clearance 83.44 ml/min; Glucose 100 mg/dL (74-106); Potassium 4.3 mmol/L (3.5-5.1); Sodium Level 140 mmol/L (136-145)
--- NOTE | 2024-08-07 08:19 | CASEMGMT ---
Addendum entered by Lizabeth Church 08/13/24 10:01: Requested updates sent to [facility]. Lizabeth Church DC Planning Asst. Addendum entered by Lizabeth Church 08/07/24 14:27: Per Frankie @ [facility], pt will not need a new precert to return. SW updated. Lizabeth Church DC Planning Asst. Original Note: Updates sent to [facility]. Asked if pt can return under intermediate benefits. Awaiting response. Lizabeth Church DC Planning Asst.
[2024-08-07] MEDS: Gabapentin 100 MG Capsule PO (09:14)
[2024-08-07] MEDS: Metoprolol(XL)Succ 25 MG Tablet PO (09:14)
[2024-08-07 10:21] LABS: Hemoglobin A1c 6.4 % (3.8-5.6)
[2024-08-07] MEDS: Pantoprazole Sodium 40 MG in 0.9% Normal Saline (100mL MB+) 100 ML 330 MG IV ×2 (10:49→22:11)
[2024-08-07 11:50] LABS: Bedside Glucose 98 mg/dL (74-106)
[2024-08-07] MEDS: Acetaminophen 500 MG Tablet 1000 MG PO (14:03)
[2024-08-07] MEDS: Collagenase 30gm Tube 1 APPLIC TOPICAL (14:04)
--- NOTE | 2024-08-07 14:30 | NURSING ---
pt off floor to EGD
--- NOTE | 2024-08-07 15:13 | PN.HOSP_ITS ---
Reason for Visit Reason for Visit: Diagnoses Anemia, unspecified (08/06/24) Gastrointestinal hemorrhage, unspecified (08/06/24) Objective Data Objective Data Vital Signs: Vital Signs Temp Pulse Resp BP Pulse Ox O2 Del Method 98.8 F 65 16 136/47 H 98 Room Air 08/07/24 14:02 08/07/24 14:02 08/07/24 14:02 08/07/24 14:02 08/07/24 14:02 08/07/24 14:02 Oxygen Delivery Method Room Air Weight: 216 lb 7.903 oz Body Mass Index (BMI) 30.2 Intake & Output: Intake and Output for Last 24 Hours 08/05/24 08/06/24 08/07/24 23:59 23:59 23:59 Intake Total 3040 / 3040 210 / 210 Output Total 1100 / 1100 550 / 550 Balance 1940 / 1940 -340 / -340 Lab / Micro Data 08/07/24 06:05 08/07/24 06:05 Labs: Laboratory Results - last 24 hr 08/06/24 09:50: Blood Type B POSITIVE, Antibody Screen NEGATIVE, Crossmatch See Detail 08/06/24 16:32: POC Glucose 198 H 08/06/24 17:23: Hgb 7.9 L, Hct 24.5 L 08/06/24 22:15: POC Glucose 176 H 08/06/24 23:11: Hgb 7.7 L, Hct 23.7 L 08/07/24 06:02: POC Glucose 103 08/07/24 06:05: WBC 4.6, RBC 2.44 L, Hgb 7.3 L, Hct 23.9 L, MCV 98.0 H, MCH 29.9, MCHC 30.5 L, RDW Std Deviation 54.6 H, RDW Coeff of Estrada 15.2 H, Plt Count 150, MPV 10.3, Immature Gran % (Auto) 0.400, Neut % (Auto) 59.3, Lymph % (Auto) 29.0, [place] % (Auto) 8.5, Eos % (Auto) 2.6, Baso % (Auto) 0.2, Absolute Neuts (auto) 2.7, Absolute Lymphs (auto) 1.33, Nucleated RBC % 0, PT 24.5 H, INR 2.2, APTT 37.8 H, Sodium 140, Potassium 4.3, Chloride 118 H, Carbon Dioxide 20.0 L, A nion Gap 2 L, BUN 42 H, Creatinine 0.97, Estim Creat Clear Calc 83.44, Est GFR (MDRD) Af Amer 98, Est GFR (MDRD) Non-Af 81, BUN/Creatinine Ratio 43.4 H, Glucose 100, Hemoglobin A1c 6.4 H, Calcium 8.5 08/07/24 11:31: POC Glucose 98 Micro: Microbiology 08/06/24 09:45 Stool Stool Occult Blood (CAMELIA) - Final Physical Exam Narrative Seen and examined. Denies shortness of breath or chest pain. No abdominal pain. No further bloody bowel movement. Physical exam: General: Alert, Oriented x3, Cooperative. BMI 30.2 kg/m?. HEENT: Atraumatic, PERRLA, EOMI, Normocephalic Oral: Oral mucosa moist. No Gingival or Mucosal Lesions/ Ulcerations Neck: Supple, No JVD, Negative Carotid Bruits Chest wall/Lungs: Air entry diminished in bilateral lung bases. No crepitation/rhonchi Cardiovascular: Status post CABG scar with unclosed sternotomy with overlying skin graft. Regular rate, Regular Rhythm, Normal S1, Normal S2 mechanical aortic valve sound. Abdomen: Bowel Sounds Present, Soft, Non Tender, Non-Distended : No dysuria. No renal angle tenderness. No suprapubic tenderness. Extremities: Mild 1+ edema, Capillary Refill Less than 3 Seconds Skin: Right TMA. Musculoskeletal: No Tenderness to Palpation of Joints or Extremities. ROM limited. Decreased mobility Neurological: Cranial nerves II-XII grossly intact, DTR 2+/4. No acute focal neurological deficit. Psych/Mental Status: Normal Affect, Appropriate. Assessment & Plan Assessment/Plan (1) Acute GI bleeding: (2) Anemia: PLAN: Plan Patient is 73-year-old gentleman being admitted for GI bleed for last 2 days with severe anemia 1. Severe anemia, acute on chronic anemia due to GI blood loss: Patient is being admitted to PCU. H&H 6.5/21%. Platelet count 151 K. 2 units of PRBCs ordered. Patient had 1 L of IV normal saline bolus in ED and does not need further as he has significant heart failure and multiple cardiac comorbidity. Monitored H&H every 6 hourly after PRBC transfusion. Jeremyix 20 mg IV as needed between 2 transfusion for fluid overload. Pantoprazole 40 mg IV every 12 hourly. GI is consulted. Clear liquids. Plan for EGD tomorrow a.m. hold antiplatelet or 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 agent, aspirin Plavix and morphine. Patient baseline hemoglobin is around 8 g%. CT abdomen pelvis CTA does not show any acute abnormality. 08/07: Patient had 2 units of PRBC transfusion. Posttransfusion is still low 7.3 but above 7 g therefore we will monitor CBC. No actively bleeding. Plan for EGD. 2. Chronic systolic and diastolic heart failure, history of thoracocentesis for right pleural effusion, CAD status post CABG 04/2020, history of mechanical [facility] AVR,: Hold baby aspirin, Plavix and warfarin as hemoglobin is very low as mentioned above. INR 2.2. PTT 36.8. Vitamin K was not given. No need for giving FFP. Chest x-ray ordered Patient follows with vascular surgeon Dr. Kendrick May and [facility], Dhara Casas Last echo in November 07 shows EF 40 to 45%, normal appearing bioprosthetic aortic valve. Mild MR, mild TR. 08/07: INR 2.2. No active bleeding. Pulse ox 98% on room air hemodynamically heart rate and BP controlled therefore we will hold off diuretic. 4. PAOD s/p fempop bypass: Patient follows Dr. Kendrick May. Right HERNESTO 0.67, moderate arterial insufficiency, Doppler PVR diminished in right ankle. Left HERNESTO 1.18 normal. Arterial duplex in July 10 patent left profunda PT bypass with no stenosis identified. 5. Restrictive lung disease: Patient last PFT in October 2022 showed moderately severe restrictive ventilatory defect with symmetric reduction in DLCO. Some stigmata of concomitant small liver disease, less consistent with COPD. Chest x-ray ordered 6. History of DVT: Patient on warfarin as an outpatient. Currently on hold 7. Type 2 diabetes mellitus: Glucose is high at 261. Patient on Lantus insulin and sliding scale, regimen. Accu-Chek before meals and at bedtime with Humalog sliding scale coverage and hypoglycemia protocol. 8. DVT prophylaxis: Pharmacological prophylaxis contraindicated. Bilateral SCDs Living will/advanced directive/end of life care: Patient does have living will or advanced directive. Mariam is power of disability attorney for health. After discussion of benefits/risks procedures involved with full code, DNR CC arrest and DNR CC, the patient opted for full code. Patient does want artificial life support including intubation, tube feed, ventilator and/chest compression, central venous catheter, vasopressor and DC shock if needed Total time spent in [id number] encounter in discussion of advanced directive 17 minutes. Microbiology Past 72 Hours 08/06/24 09:45 Stool Stool Occult Blood (CAMELIA) - Final Laboratory Results 08/06/24 09:50: WBC 4.3 L, RBC 2.18 L, Hgb 6.5 L, Hct 21.2 L, MCV 97.2 H, MCH 29.8, MCHC 30.7 L, RDW Std Deviation 52.6 H, RDW Coeff of Estrada 14.7 H, Plt Count 151, MPV 10.4, Immature Gran % (Auto) 0.500, Neut % (Auto) 64.0, Lymph % (Auto) 25.3, [place] % (Auto) 7.0, Eos % (Auto) 3.0, Baso % (Auto) 0.2, Absolute Neuts (auto) 2.8, Absolute Lymphs (auto) 1.09, Nucleated RBC % 0, PT 25.1 H, INR 2.2, APTT 36.8 H, Sodium 142, Potassium 4.8, Chloride 115 H, Carbon Dioxide 24.0, A nion Gap 3 L, BUN 61 H, Creatinine 1.36 H, Estim Creat Clear Calc 59.68, Est GFR (MDRD) Af Amer 66, Est GFR (MDRD) Non-Af 55 L, BUN/Creatinine Ratio 44.9 H, G lucose 261 H, Calcium 8.4 L, Total Bilirubin 0.50, AST 16, ALT 18, Alkaline Phosphatase 95, Total Protein 6.2 L, Albumin 3.0 L, Globulin 3.2, Albumin/Globulin Ratio 0.9, Lipase 22, Blood Type B POSITIVE, Antibody Screen NEGATIVE, Crossmatch See Detail 08/06/24 09:58: Lactic Acid 1.4 08/06/24 13:05: Urine Color Yellow, Urine Clarity Clear, Urine pH 6.0, Ur Specific [place] 1.015, Urine Protein 15 H, Urine Glucose (UA) Normal, Urine Ketones Negative, Urine Occult Blood Negative, Urine Nitrite Negative, Urine Bilirubin Negative, Urine Urobilinogen Normal, Ur Leukocyte Esterase Negative, Urine RBC Pending, Urine WBC Pending, Ur Squamous Epith Cells Pending, Urine Bacteria Pending, Urine Mucus Pending Clinical Impression(s) from Imaging Studies Abdomen/Pelvis CTA 08/06/24 09:46 IMPRESSION: Stable central right upper abdominal wall hernia. Scattered sigmoid diverticula. Charges/Coding Visit Charges Inpatient E&M: 21409 Subs Hosp L2
--- NOTE | 2024-08-07 15:21 | PRE.ANES_ITS ---
ASA Classification* ASA Classification ASA Classification: 3 Assessment & Plan Anesthesia* Anesthesia Assessment Anesthesia Assessment: Discussed sedation and/or anesthesia options, risks, benefits, and alternatives with patient/parents/legal guardian/POA. Questions invited. The patient/parents/legal guardian/POA seems to understand and agrees to proceed with anesthesia plan. Reviewed the physical assessment, medical history, allergy history and patient home medications list prior to surgery/procedure/anesthetic and documented any changes. Performed airway and anesthesia risk assessments. Anesthesia Type Anesthesia Type: MAC History Source History Obtained from:: Patient and Chart Anesthesia Focused Assessment* Temperature: 98.8 F Pulse Rate: 65 Blood Pressure: 136/47 Respiratory Rate: 16 Pulse Ox: 98 Oxygen Delivery Method: Room Air Airway Assessment Mouth opens: >3 cm Mallampati Score: IV Teeth Condition: Chipped/Broken (Patient has 2 intact teeth. The rest are broken.) Neck Range of motion (ROM): Limited ROM (slight decrease in extension) Focused Labs Anesthesia Preop lab: CBC WBC 4.6 K/mm3 (4.4-11.0) 08/07/24 06:05 RBC 2.44 M/mm3 (4.6-6.2) L 08/07/24 06:05 Hgb 7.3 g/dL (13.0-16.5) L 08/07/24 06:05 Hct 23.9 % (40-54) L 08/07/24 06:05 Plt Count 150 K/mm3 (150-450) 08/07/24 06:05 CHEMISTRY Potassium 4.3 mmol/L (3.5-5.1) 08/07/24 06:05 Sodium 140 mmol/L (136-145) 08/07/24 06:05 Magnesium 1.6 mg/dL (1.6-2.6) 02/24/24 17:00 Phosphorus 2.9 mg/dL (2.5-4.9) 12/15/22 08:26 BUN 42 mg/dL (7-18) H 08/07/24 06:05 Creatinine 0.97 mg/dL (0.70-1.30) 08/07/24 06:05 Glucose 100 mg/dL (74-106) 08/07/24 06:05 POC Glucose 98 mg/dL (74-106) 08/07/24 11:31 TSH 1.24 uIU/mL (0.358-3.74) 02/13/24 13:53 COAG PT 24.5 SECONDS (11.7-14.9) H 08/07/24 06:05 Pre-Assessment Diagnosis/Proposed Procedure Planned Operative Procedure(s): Esophagogastroduodenoscopy. 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 When Was Last Pacemaker Check QUESTION #4 FULL TEXT: You/Your Family Experience fever (hyperthermia) with Anesthesia Last Oral Intake Last Oral intake: Last Oral Intake NPO since 00:01 08/07/24 09:00 Meds taken in AM with sips of Yes 08/07/24 09:00 water? Meds patient instructed to metoprolol, gabapentin 08/07/24 09:00 take am of surgery Any additional information?: Yes Meds taken in AM with sips of water?: Yes PONV PONV - freight and passenger agent: PONV - freight and passenger agent Female HX of Motion Sickness HX of N/V After Surgery Non-Smoker Duration of Surgery greater than 60 minutes Number of Risk Factors PONV Score Height & Weight Height & Weight: Anesthesia: Height & Weight Height 5 ft 11 in 08/07/24 11:10 Weight: 98.2 kg 08/07/24 11:10 Body Mass Index (BMI) 30.2 08/07/24 06:00 Respiratory Assessment Respiratory Assessment - freight and passenger agent: Respiratory Tract Infection Hx - freight and passenger agent Hx Respiratory Tract Infection No 02/29/24 03:00 STOP Sleep Apnea STOP Sleep Apnea - freight and passenger agent: STOP Sleep Apnea - freight and passenger agent Hx Hypertension Yes 08/07/24 11:50 Hx Sleep Apnea No 08/06/24 13:45 CPAP No 08/06/24 13:45 BIPAP No 08/06/24 13:45 Do you snore loudly (louder No 08/06/24 13:45 than talking or can be heard Do you often feel tired/ No 08/06/24 13:45 fatigued/ sleepy during daytime? Has anyone observed you stop No 08/06/24 13:45 breathing during sleep? STOP Results Negative 08/06/24 13:45 QUESTION #5 FULL TEXT : Do you snore loudly (louder than talking or can be heard through closed doors)? 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 Specify any problems Hx of Preganancy in last 3 N/A 08/06/24 13:45 Months Nurse Filling Out Transfusion NBILANCIN 08/06/24 13:45 & Questions: Date: 08/06/24 08/06/24 13:45 Time: 13:49 08/06/24 13:45 Patient unable to answer at this time (ie. confused, unrespo /Reproduction History /Reproductive History - freight and passenger agent: /Reproductive Hx- freight and passenger agent Hx Now Gestational Age (in weeks): EDC: Hx Hx Para Hx Section SAB No 02/29/24 03:00 Active Medications Active Medications: Current Medications Generic Name Dose Route Start Last Admin Trade Name Freq PRN Reason Stop Dose Admin Acetaminophen 1,000 mg 08/06/24 13:44 08/07/24 14:03 Acetaminophen 500 Mg Tablet PO 1,000 mg Q8H PRN Administration pain SCORE 1-10 Atorvastatin Calcium 40 mg 08/06/24 22:00 08/06/24 22:14 Atorvastatin Calcium 40 Mg Tablet PO 40 mg QHS [facility] Administration Cholecalciferol 25 mcg 08/07/24 10:00 08/07/24 09:19 Cholecalciferol (Vit D3) 25 Mcg Tablet (1,000 Units) PO Not Given DAILY [facility] Collagenase 1 applic 08/07/24 10:30 08/07/24 14:04 Collagenase 30gm Tube TOPICAL 1 appful Q48 [facility] Administration Protocol Cyclobenzaprine HCl 10 mg 08/06/24 13:44 Cyclobenzaprine Hcl 10 Mg Tablet PO Q8H PRN Muscle Pain Doxepin HCl 50 mg 08/07/24 10:00 08/07/24 09:19 Doxepin Hcl 50 Mg Capsule PO Not Given DAILY [facility] Ferrous Sulfate 325 mg 08/07/24 08:00 08/07/24 09:18 Ferrous Sulfate 325 Mg [facility] Furosemide 40 mg 08/07/24 08:00 08/07/24 09:19 Furosemide 40 Mg Tablet PO Not Given DAILY@0800 [facility] Protocol Gabapentin 100 mg 08/07/24 10:00 08/07/24 09:14 Gabapentin 100 Mg Capsule PO 100 mg DAILY [facility] Administration Gabapentin 300 mg 08/06/24 22:00 08/06/24 22:14 Gabapentin 300 Mg Capsule PO 300 mg QHS [facility] Administration Pantoprazole Sodium 40 mg/ 110 mls @ 330 mls/hr 08/06/24 22:00 08/07/24 11:34 Sodium Chloride IV Infused Q12 [facility] Infusion Sodium Chloride 100 mls @ 15 mls/hr 08/06/24 14:02 IV .Q6H40M PRN SALINE FLUSH Insulin Glargine 12 unit 08/06/24 22:00 08/06/24 22:16 Insulin Glargine-Yfgn 100 Unit/Ml Pen SC 12 unit QHS [facility] Administration Insulin Human Lispro 5 unit 08/06/24 16:00 08/07/24 11:34 Insulin Lispro 100 Unit/Ml Insuln.Pen SC Not Given ACHS [facility] Insulin Human Lispro 0 unit 08/06/24 16:00 08/07/24 11:34 Insulin Lispro 100 Unit/Ml Insuln.Pen SC Not Given ACHS [facility] Protocol L-Arginine/L-Glutamine/Calcium HMB 1 packet 08/06/24 17:00 08/07/24 09:19 Renny (Unflavored) Packet PO Not Given BIDCM [facility] Losartan Potassium 50 mg 08/07/24 10:00 08/07/24 09:19 Losartan Potassium 50 Mg Tablet PO Not Given DAILY [facility] Protocol Metoprolol Succinate 25 mg 08/07/24 10:00 08/07/24 09:14 Metoprolol(Xl)Succ 25 Mg Tablet PO 25 mg DAILY [facility] Administration Protocol Mirtazapine 7.5 mg 08/06/24 22:00 08/06/24 22:13 Mirtazapine 15 Mg Tablet PO 7.5 mg QHS [facility] Administration Senna/Docusate Sodium 2 tablet 08/06/24 13:44 Senna/Docusate Sodium 1 Tablet PO BID PRN PRN Constipation Sodium Chloride 10 - 40 ml 08/06/24 14:02 08/06/24 22:12 0.9% Saline Lock 10 Ml Syringe IV 10 ml UD PRN Administration SALINE FLUSH [facility] Medical History Non-pressure chronic ulcer of right heel and midfoot with fat layer exposed Non-pressure chronic ulcer of other part of right foot with bone involvement without evidence of necrosis Non-pressure chronic ulcer of right heel and midfoot with necrosis of muscle Non-pressure chronic ulcer of other part of right foot with muscle involvement without evidence of necrosis Non-pressure chronic ulcer of other part of right lower leg with fat layer exposed Diabetes mellitus PVD (peripheral vascular disease) Anemia Diabetic foot infection PAOD (peripheral arterial occlusive disease) Trigger finger of both hands Amputation of second toe, right, traumatic Aftercare following surgery of the circulatory system Anemia Hyperbilirubinemia Nicotine dependence, cigarettes, uncomplicated Atherosclerosis of [place] arteries of right leg with ulceration of other part of foot Non-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 Peripheral vascular occlusive disease Diabetic ulcer of toe of left foot associated with type 2 diabetes mellitus Ulcer of toe of left foot Atherosclerosis of [place] arteries of left leg with ulceration of other part of foot Wears glasses Alcohol use Insulin dependent diabetes mellitus Back pain Syncope Dietary restriction Cardiology follow-up encounter History of rheumatic fever ZOFIA (acute kidney injury) Recurrent right pleural effusion Osteomyelitis of toe of right foot Non-pressure chronic ulcer of other part of left foot with fat layer exposed Acute exacerbation of CHF (congestive heart failure) Anticoagulant long-term use Acute and chronic respiratory failure with hypercapnia Encephalopathy acute Acute hypercapnic respiratory failure Atherosclerosis of lower extremity with ulceration COPD (chronic obstructive pulmonary disease) Inability to walk Adult failure to thrive CHF (congestive heart failure) Smoker Congestive heart failure Sternal wound infection 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 MSSA (methicillin susceptible Staphylococcus aureus) infection History of non-ST elevation myocardial infarction (NSTEMI) (04/23/20) Non-healing surgical wound (05/01/20) skilled nursing current use of 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 Chronic combined systolic and diastolic CHF (congestive heart failure) Type 2 diabetes mellitus Atherosclerosis of coronary artery without angina pectoris Nicotine dependence Ischemic cardiomyopathy Secondary pulmonary arterial hypertension Essential (primary) hypertension Nonrheumatic aortic (valve) stenosis 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 Osteomyelitis Diabetic foot infection Bleeding disorder Ulcer of right foot with fat layer exposed COPD (chronic obstructive pulmonary disease) Hyperlipidemia DVT (deep venous thrombosis) GERD (gastroesophageal reflux disease) Home Medications ?Medication ?Instructions ?Recorded ?Last Taken ?Type atorvastatin 40 mg tablet 40 mg PO QHS cholesterol 11/12/20 11/03/23 History ferrous sulfate 325 mg (65 mg 325 mg PO DAILY 10/29/22 11/02/23 History iron) tablet furosemide 40 mg tablet 40 mg PO DAILY #0 tabs 11/12/22 11/02/23 Rx cyclobenzaprine 10 mg tablet 10 mg PO Q8H PRN Muscle Pain 12/11/22 11/02/23 History insulin lispro 100 unit/mL 5 unit subcut ACHS 12/11/22 11/03/23 History subcutaneous pen (Humalog KwikPen (U-100) Insulin) pantoprazole 40 mg tablet,delayed 40 mg PO QDAY 10/04/23 11/02/23 History release doxepin 50 mg capsule 50 mg PO DAILY 10/28/23 11/02/23 History gabapentin 100 mg capsule 100 mg PO DAILY pain 10/28/23 08/07/24 History insulin glargine-yfgn 100 unit/mL 15 unit subcut QHS 10/28/23 11/03/23 History (3 mL) subcutaneous pen linagliptin 5 mg tablet (Tradjenta) 5 mg PO DAILY 10/28/23 11/03/23 History metoprolol succinate 25 mg 25 mg PO DAILY bp 10/28/23 08/07/24 History tablet,extended release 24 hr mirtazapine 7.5 mg tablet 7.5 mg PO QHS 10/28/23 11/03/23 History tibdtmwv-or-xuykq 300 mcg-K 60 1 tab PO DAILY 10/28/23 11/02/23 History mcg-lycop 600 mcg-lutein 300 mcg tablet (Centrum Silver Men) cholecalciferol (vitamin D3) 25 25 mcg PO DAILY 10/31/23 11/02/23 History mcg (1,000 unit) capsule losartan 100 mg tablet 100 mg PO DAILY 10/31/23 11/03/23 History clopidogrel 75 mg tablet (Plavix) 75 mg PO DAILY #90 tabs 12/21/23 08/05/24 Rx arginine 7 gram-glutam 7 1 packet PO BIDCM #0 ea 03/02/24 Unknown Rx gram-CaHMB 1.5 uniw-qddsq-hb-min oral pwd pkt (Renny (with collagen)) albuterol sulfate 2.5 mg/3 mL 2.5 mg inhalation Q4H PRN 07/19/24 Unknown History (0.083 %) solution for nebulization shortness of breath or wheezing acetaminophen 500 mg tablet 1,000 mg PO Q8H PRN pain 08/06/24 Unknown History aspirin 81 mg chewable tablet 1 tab PO DAILY 08/06/24 Unknown History gabapentin 300 mg capsule 300 mg PO QHS 08/06/24 Unknown History insulin lispro 100 unit/mL 1 sliding scale dose subcut ACHS 08/06/24 Unknown History subcutaneous pen (Humalog KwikPen (U-100) Insulin) Allergy/AdvReac Type Severity Reaction Status Date / Time No Known Allergies Allergy Verified 08/06/24 09:02 Family History Mother Diabetes Heart disease Father Diabetes Surgical History History of amputation History of incision and drainage (09/22/20) History of angioplasty of peripheral vessel (01/02/10) History of lumbar laminectomy History of femoropopliteal bypass (2008) H/O coronary artery bypass surgery (05/01/20) History of mechanical aortic valve replacement History of left heart catheterization (04/23/20) Social History household members: significant other Smoking Status: Light Smoker (<10/day) alcohol intake: never substance use type: does not use caffeine: No Review of Systems (Anesthesia) ROS Narrative System reviewed and no additional complaints, except as documented.
--- NOTE | 2024-08-07 15:38 | PN.GI_ITS ---
Subjective Subjective Patient had 2 units of PRBC transfusion. Posttransfusion is still low 7.3 but above 7 g therefore we will monitor CBC. No actively bleeding. Plan for EGD. Objective Data Objective Data Vital Signs: Vital Signs Temp Pulse Resp BP Pulse Ox O2 Del Method 98.8 F 65 16 136/47 H 98 Room Air 08/07/24 15:25 08/07/24 15:25 08/07/24 15:25 08/07/24 15:25 08/07/24 15:25 08/07/24 15:32 Oxygen Delivery Method Room Air Weight: 216 lb 7.903 oz Body Mass Index (BMI) 30.2 Intake & Output: Intake and Output for Last 24 Hours 08/05/24 08/06/24 08/07/24 23:59 23:59 23:59 Intake Total 3040 / 3040 210 / 210 Output Total 1100 / 1100 550 / 550 Balance 1940 / 1940 -340 / -340 Lab / Micro Data 08/07/24 06:05 08/07/24 06:05 Labs: Laboratory Results - last 24 hr 08/06/24 09:50: Crossmatch See Detail 08/06/24 16:32: POC Glucose 198 H 08/06/24 17:23: Hgb 7.9 L, Hct 24.5 L 08/06/24 22:15: POC Glucose 176 H 08/06/24 23:11: Hgb 7.7 L, Hct 23.7 L 08/07/24 06:02: POC Glucose 103 08/07/24 06:05: WBC 4.6, RBC 2.44 L, Hgb 7.3 L, Hct 23.9 L, MCV 98.0 H, MCH 29.9, MCHC 30.5 L, RDW Std Deviation 54.6 H, RDW Coeff of Estrada 15.2 H, Plt Count 150, MPV 10.3, Immature Gran % (Auto) 0.400, Neut % (Auto) 59.3, Lymph % (Auto) 29.0, Centre % (Auto) 8.5, Eos % (Auto) 2.6, Baso % (Auto) 0.2, Absolute Neuts (auto) 2.7, Absolute Lymphs (auto) 1.33, Nucleated RBC % 0, PT 24.5 H, INR 2.2, APTT 37.8 H, Sodium 140, Potassium 4.3, Chloride 118 H, Carbon Dioxide 20.0 L, A nion Gap 2 L, BUN 42 H, Creatinine 0.97, Estim Creat Clear Calc 83.44, Est GFR (MDRD) Af Amer 98, Est GFR (MDRD) Non-Af 81, BUN/Creatinine Ratio 43.4 H, Glucose 100, Hemoglobin A1c 6.4 H, Calcium 8.5 08/07/24 11:31: POC Glucose 98 Micro: Microbiology 08/06/24 09:45 Stool Stool Occult Blood (CAMELIA) - Final Physical Exam Const alert, oriented x3, no apparent distress and healthy appearing General Appearance: cooperative GI normal to inspection, nondistended, normoactive bowel sounds, soft to palpation, non-tender and non-distended Percussion: normal to percussion Rectal Exam: deferred Assessment & Plan Assessment/Plan (1) Acute GI bleeding: (2) Anemia: PLAN: Plan Patient is 73-year-old gentleman being admitted for GI bleed for last 2 days with severe anemia The differential diagnosis for his severe anemia, acute on chronic anemia does include GI blood loss. He will undergo an upper endoscopy to evaluate his upper GI tract. Depending on what the upper GI tract endoscopy shows he may need a colonoscopy plus minus a capsule endoscopy. He had a CT angiography did not show any signs of active bleeding.:%. Platelet count 151 K. 2 units of PRBCs ordered. Plan for EGD tomorrow a.m. hold antiplatelet or 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 agent, aspirin Plavix and morphine. Patient baseline hemoglobin is around 8 g%. CT abdomen pelvis CTA does not show any acute abnormality. Patient was explained alternatives including not withstanding bleeding, infection, sepsis, perforation, need emergent urgent . He will have an ASA of 3. Charges/Coding Visit Charges Inpatient E&M: 62178 Subs Hosp L3
--- NOTE | 2024-08-07 15:55 | PCM.POST.ANE ---
Anesthesia: Postop Eval I Current Vital Signs Temperature: 97.8 F Pulse Rate: 78 Blood Pressure: 109/56 Respiratory Rate: 14 Pulse Ox: 98 Oxygen Delivery Method: Room Air Assessment Airway patent: Yes Spontaneous unlabored respirations: Yes Mental status: Awake nausea: No Vomiting: No Anesthesia Complication: No Fluid Hydration Crystalloid volume administer (ml): 10 Total IV fluid infused: 10 Progress Note Anesthesia document: Postop Eval 1 completed: Yes
--- NOTE | 2024-08-07 16:06 | CHAPLAIN ---
Type of Pastoral Visit ___ Initial Visit ___ Follow-up Visit ___ On-call Visit ___ General Patient Visit ___ Spiritual Assessment ___ Family Conference ___ Bereavement ___ Rapid Response ___ Code Blue ___ Other (describe below) Pastoral Care Referral From ___ Patient ___ Family ___ Nurse ___ Physician ___ Sleep Scientist ___ Diesel Truck Crane Operator ___ Other (describe below) Sacrament/Intervention ___ Active listening ___ Anointing ___ Jewish ___ Bereavement ___ Communion ___ Temi exploration ___ ___ Life review ___ Prayer ___ Reconciliation ___ Sacrament of Sick ___ Supportive presence ___ Wedding ___ Other (describe below) Pastoral Comments patient is out of the room and a calling card is left for him
--- NOTE | 2024-08-07 16:08 | OP.EGD_ITS ---
Patient Name: Sky Coronel Procedure Date: 08/07/2024 3:36 PM Date of : 1950 Age: 73 Procedure: Upper GI endoscopy Indications: Melena Providers: Anatoly Moss DO Medicines: Monitored Anesthesia Care Patient Profile: This is a 73 year old male. Refer to note in patient chart for documentation of history and physical. Patient has symptoms of acute epigastric abdominal pain. Complications: No immediate complications. Procedure: Pre-Anesthesia Assessment: - Prior to the procedure, a History and Physical was performed, and patient medications and allergies were reviewed. The patient is competent. The risks and benefits of the procedure and the sedation options and risks were discussed with the patient. All questions were answered and informed consent was obtained. Patient identification and proposed procedure were verified by the physician in the pre-procedure area. Mental Status Examination: alert and oriented. Airway Examination: normal oropharyngeal airway and neck mobility. Respiratory Examination: clear to auscultation. CV Examination: normal. Prophylactic Antibiotics: The patient does not require prophylactic antibiotics. Prior Anticoagulants: The patient has taken no 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 or antiplatelet agents except for NSAID medication. ASA Grade Assessment: II - A patient with mild systemic disease. After reviewing the risks and benefits, the patient was deemed in satisfactory condition to undergo the procedure. The anesthesia plan was to use monitored anesthesia care (MAC). Immediately prior to administration of medications, the patient was re-assessed for adequacy to receive sedatives. The heart rate, respiratory rate, oxygen saturations, blood pressure, adequacy of pulmonary ventilation, and response to care were monitored throughout the procedure. The physical status of the patient was re-assessed after the procedure. After obtaining informed consent, the endoscope was passed under direct vision. Throughout the procedure, the patient's blood pressure, pulse, and oxygen saturations were monitored continuously. The gastroscope was introduced through the mouth, and advanced to the second part of duodenum. The upper GI endoscopy was accomplished without difficulty. The patient tolerated the procedure well. Scope In: 3:44:46 PM Scope Out: 3:47:13 PM Total Procedure Duration Time 0 hours 2 minutes 27 seconds Findings: The examined esophagus was normal. A medium-sized hiatal hernia was present. No other significant abnormalities were identified in a careful examination of the stomach. Patchy mild inflammation characterized by erosions was found in the first portion of the duodenum. Biopsies were taken with a cold forceps for histology. Verification of patient identification for the specimen was done. Estimated blood loss was minimal. Impression: - Normal esophagus. - Medium-sized hiatal hernia. - Chronic duodenitis. Biopsied. Recommendation: - Return patient to hospital [facility] for ongoing care. - Continue present medications. - Colonoscopy tomorrow Procedure Code(s): --- Professional --- 80438, Esophagogastroduodenoscopy, flexible, transoral; with biopsy, single or multiple CPT copyright 2021 [employer]. All rights reserved. The codes documented in this report are preliminary and upon ground crewman aircraft support review may be revised to meet current compliance requirements. Anatoly Moss DO 08/07/2024 4:08:17 PM This report has been signed electronically. Number of Addenda: 0 Note Initiated On: 08/07/2024 3:36 PM
--- NOTE | 2024-08-07 16:08 | OP.CCLET_ITS ---
08/07/2024 Saurabh Hernandez MD [address] [place] [address] Re : Upper GI endoscopy procedure for Sky Homer Dear Dr. Hernandez This procedure was performed on Wednesday, August 07, 2024. My impressions and recommendations are as follows: Impressions : - Normal esophagus. - Medium-sized hiatal hernia. - Chronic duodenitis. Biopsied. Recommendations : - Return patient to [facility] for ongoing care. - Continue present medications. - Colonoscopy tomorrow My findings are described in the full procedure note, which is enclosed. If I can be of further assistance, please feel free to contact me at . Sincerely, Anatoly Moss, 08/07/2024 4:08:17 PM This report has been signed electronically.
--- NOTE | 2024-08-07 16:16 | WOUNDNOTE ---
wound photo: right lateral foot
--- NOTE | 2024-08-07 16:16 | WOUNDNOTE ---
wound photo: right medial foot
--- NOTE | 2024-08-07 16:17 | WOUNDNOTE ---
wound photo: right heel
[2024-08-07] MEDS: Bisacodyl 5 MG Tablet 20 MG PO (16:31)
[2024-08-07] MEDS: Polyethylene Glycol 3350 BOWEL PREP PO (17:31)
--- NOTE | 2024-08-07 19:49 | PCM.POSTANE2 ---
Anesthesia Postop Eval I Sum Postop Eval Completion status Anesthesia document: Postop Eval 1 completed: Yes Anesthesia Postop Eval I Summary Anesthesia Postop Eval I Summary: Anesthesia Postop Eval I: Assessment Summary Airway patent Yes 08/07/24 15:56 [email or web address] Spontaneous unlabored Yes 08/07/24 15:56 [email or web address] respirations Mental status Awake 08/07/24 15:56 [email or web address] nausea No 08/07/24 15:56 [email or web address] Vomiting No 08/07/24 15:56 [email or web address] Anesthesia Postop Eval I: Fluid Summary Crystalloid volume administer 10 08/07/24 15:56 [email or web address] (ml) Colloids volume administered ( ml) Blood Product volume administered (ml) Total IV fluid infused 10 08/07/24 15:56 [email or web address] Anesthesia Postop Eval I: Summary Notes Anesthesia Complication No 08/07/24 15:56 [email or web address] Anesthesia Complication Comment: Post-operative progress note Anesthesia: Postop Eval II Evaluation Mental status: Awake and Calm Pain Level: 0 nausea: No Vomiting: No Complications Anesthesia Complication: No
[2024-08-07] MEDS: 0.9% Saline Lock 10 ML Syringe IV (20:03)
[2024-08-07 21:37] LABS: Hematocrit 25.1 % (40-54); Hemoglobin 7.9 g/dL (13.0-16.5)
[2024-08-07] MEDS: Mirtazapine 15 MG Tablet 7.5 MG PO (22:06)
[2024-08-07] MEDS: Gabapentin 300 MG Capsule PO (22:07)
[2024-08-07] MEDS: Atorvastatin Calcium 40 MG Tablet PO (22:07)
[2024-08-07 22:34] LABS: Bedside Glucose 142 mg/dL (74-106)
[2024-08-08] VITALS (14 sets, daily range): BP systolic 108–145; BP diastolic 48–61; PULSE 55–87; RESP 16–28; TEMP 36.3–37.3; O2SAT 98–100; BMI 30.7
[2024-08-08 00:13] LABS: Hematocrit 24.2 % (40-54); Hemoglobin 7.7 g/dL (13.0-16.5)
--- NOTE | 2024-08-08 05:55 | EKG12_ITS ---
Test Reason : AM EKG Blood Pressure : */* mmHG Vent. Rate : 75 BPM Atrial Rate : 75 BPM P-R Int : 160 ms QRS Dur : 94 ms QT Int : 392 ms P-R-T Axes : * 37 18 degrees QTcB Int : 437 ms Normal sinus rhythm Possible Inferior infarct , age undetermined Anterior infarct , age undetermined Abnormal ECG When compared with ECG of 06-Aug-2024 13:49, MANUAL COMPARISON REQUIRED DATA IS UNCONFIRMED Confirmed by TIKA CHAPA, SHEN ([id number]), writer editor RICK GARCIA ([id number]) on 08/13/2024 2:18:22 PM Referred By: Confirmed By: SHEN VILLELA MD
[2024-08-08 06:48] LABS: Bedside Glucose 103 mg/dL (74-106)
[2024-08-08 06:58] LABS: Absolute Lymphocyte Count 1.34 X10^3/uL (0.83-4.51); Absolute Neutrophil Count 2.6 X10^3/uL (2.0-7.7); Basophil# 0.02 X10^3/uL; Basophil% 0.4 % (0-1); Eosinophil# 0.17 X10^3/uL; Eosinophils% 3.7 % (0-5); Hematocrit 25.5 % (40-54); Hemoglobin 7.9 g/dL (13.0-16.5); Lymphocyte # 1.34 X10^3/ul (0.83-4.51); Lymphocyte % 28.9 % (19-41); Mean Corpuscular Hgb 29.3 pg (27.0-32.0); Mean Corpuscular Volume 94.4 fL (80-94); Mean Platelet Vol. 10.2 fl (6.2-12.0); Monocyte# 0.47 X10^3/uL; Monocyte% 10.2 % (0-10); NRBC Flagged by Analyzer 0 % (0-5); Neutrophil % 56.2 % (47-70); Platelet Count 174 K/mm3 (150-450); RBC Distribution Width CV 14.8 % (11.6-14.6); RBC Distribution Width SD 51.2 fl (35.1-43.9); White Blood Count 4.6 K/mm3 (4.4-11.0)
[2024-08-08 07:11] LABS: Prothrombin Time (Protime)PT. 22.7 SECONDS (11.7-14.9)
[2024-08-08 07:12] LABS: Partial Thromboplast Time 35.7 Seconds (24.1-36.2)
[2024-08-08 07:19] LABS: Anion Gap 7 (5-15); BUN 24 mg/dL (7-18); BUN/Creat Ratio 28.4 RATIO (10-20); Calcium,Total 8.5 mg/dL (8.5-10.1); Chloride 115 mmol/L (98-107); Creatinine, Serum 0.85 mg/dL (0.70-1.30); EST Glomerular Filtration Rate 95 mL/min (>60); Est Glom Filt Rate - Afr Amer 115 mL/min (>60); Estimated Creatinine Clearance 95.99 ml/min; Glucose 105 mg/dL (74-106); Potassium 4.2 mmol/L (3.5-5.1); Sodium Level 142 mmol/L (136-145)
--- NOTE | 2024-08-08 07:29 | PCM.CONS.GEN ---
Assessment & Plan Assessment/Plan (1) Non-pressure chronic ulcer of right heel and midfoot with fat layer exposed: PLAN: Patient was examined and evaluated. All findings were discussed with the patient. All questions were answered to the patient satisfaction. Excisional debridement down to and including subcutaneous tissue of the right posterior heel with a number 5 mm dermal curette without incident. Predebridement measurement was 2.9 x 1.4 x 0.1 cm. Postdebridement measurement is 3.0 x 1.5 x 0.2 cm. The right lower extremities were cleaned and patted dry. The graft remained intact to the transmetatarsal amputation site. The heel was dressed with Santyl nickel thick with moist gauze followed by dry sterile dressing cast padding and 4 inch Donte wrap. Continue to offload the bilateral heels. Weightbearing: Weightbearing as tolerated to the right lower extremity. Full weightbearing to the left lower extremity. Medicine: On board, medical management Gastroenterology: On board, plan for lower GI endoscopy today From a podiatry standpoint the patient will have dressing changes per wound care nurse and be evaluated Tuesday if the patient is still present in the hospital. The patient's right lower extremity wounds are stable with no sign of infection, no plan for surgical intervention on this visit. We will continue outpatient wound care management at discharge. The patient will follow-up in the wound care center next Tuesday. Podiatry will continue to follow but from a distance. Please reach out to Dr. Lyons with any questions or concerns. Thank you for the consultation! (2) Non-pressure chronic ulcer of other part of right foot with fat layer exposed: (3) Acute painful diabetic polyneuropathy: HPI Consult Data Date of Consult: 08/08/24 HPI Narrative Reason for Consultation: Right foot wounds HPI Narrative: RAPHAEL HADDAD, is a 73 M who [facility] secondary to GI bleed. Patient had presence of red stool with passing dime sized blood clots. He was seen in the emergency room and evaluated eventually admitted. Occult blood test was negative in the emergency room. Patient had upper GI endoscopy. DOS: 08/07/2024. Findings were mild inflammatory characteristics of erosion which were found in the first portion of the duodenum. Biopsies were taken with cold forceps for histology. He is planned for lower GI endoscopic today with Dr. Friend. Podiatry was consulted for full-thickness wounds to the transmetatarsal amputation stump and heel of the right lower extremity. Patient was getting dressing changes at his prison facility and seen regularly at the wound care center for treatment. He denies any trauma to the bilateral lower extremity. He currently denies any constitutional symptoms. No other pedal complaints at this time. [facility] Medical History Non-pressure chronic ulcer of right heel and midfoot with fat layer exposed Non-pressure chronic ulcer of other part of right foot with bone involvement without evidence of necrosis Non-pressure chronic ulcer of right heel and midfoot with necrosis of muscle Non-pressure chronic ulcer of other part of right foot with muscle involvement without evidence of necrosis Non-pressure chronic ulcer of other part of right lower leg with fat layer exposed Diabetes mellitus PVD (peripheral vascular disease) Anemia Diabetic foot infection PAOD (peripheral arterial occlusive disease) Trigger finger of both hands Amputation of second toe, right, traumatic Aftercare following surgery of the circulatory system Anemia Hyperbilirubinemia Nicotine dependence, cigarettes, uncomplicated Atherosclerosis of [place] arteries of right leg with ulceration of other part of foot Non-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 Peripheral vascular occlusive disease Diabetic ulcer of toe of left foot associated with type 2 diabetes mellitus Ulcer of toe of left foot Atherosclerosis of [place] arteries of left leg with ulceration of other part of foot Wears glasses Alcohol use Insulin dependent diabetes mellitus Back pain Syncope Dietary restriction Cardiology follow-up encounter History of rheumatic fever ZOFIA (acute kidney injury) Recurrent right pleural effusion Osteomyelitis of toe of right foot Non-pressure chronic ulcer of other part of left foot with fat layer exposed Acute exacerbation of CHF (congestive heart failure) Anticoagulant long-term use Acute and chronic respiratory failure with hypercapnia Encephalopathy acute Acute hypercapnic respiratory failure Atherosclerosis of lower extremity with ulceration COPD (chronic obstructive pulmonary disease) Inability to walk Adult failure to thrive CHF (congestive heart failure) Smoker Congestive heart failure Sternal wound infection 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 MSSA (methicillin susceptible Staphylococcus aureus) infection History of non-ST elevation myocardial infarction (NSTEMI) (04/23/20) 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 Chronic combined systolic and diastolic CHF (congestive heart failure) Type 2 diabetes mellitus Atherosclerosis of coronary artery without angina pectoris Nicotine dependence Ischemic cardiomyopathy Secondary pulmonary arterial hypertension Essential (primary) hypertension Nonrheumatic aortic (valve) stenosis 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 Osteomyelitis Diabetic foot infection Bleeding disorder Ulcer of right foot with fat layer exposed COPD (chronic obstructive pulmonary disease) Hyperlipidemia DVT (deep venous thrombosis) GERD (gastroesophageal reflux disease) Home Medications ?Medication ?Instructions ?Recorded ?Last Taken ?Type atorvastatin 40 mg tablet 40 mg PO QHS cholesterol 11/12/20 11/03/23 History ferrous sulfate 325 mg (65 mg 325 mg PO DAILY 10/29/22 11/02/23 History iron) tablet furosemide 40 mg tablet 40 mg PO DAILY #0 tabs 11/12/22 11/02/23 Rx cyclobenzaprine 10 mg tablet 10 mg PO Q8H PRN Muscle Pain 12/11/22 11/02/23 History insulin lispro 100 unit/mL 5 unit subcut ACHS 12/11/22 11/03/23 History subcutaneous pen (Humalog KwikPen (U-100) Insulin) pantoprazole 40 mg tablet,delayed 40 mg PO QDAY 10/04/23 11/02/23 History release doxepin 50 mg capsule 50 mg PO DAILY 10/28/23 11/02/23 History gabapentin 100 mg capsule 100 mg PO DAILY pain 10/28/23 08/07/24 History insulin glargine-yfgn 100 unit/mL 15 unit subcut QHS 10/28/23 11/03/23 History (3 mL) subcutaneous pen linagliptin 5 mg tablet (Tradjenta) 5 mg PO DAILY 10/28/23 11/03/23 History metoprolol succinate 25 mg 25 mg PO DAILY bp 10/28/23 08/07/24 History tablet,extended release 24 hr mirtazapine 7.5 mg tablet 7.5 mg PO QHS 10/28/23 11/03/23 History xwitiogc-iy-ryodp 300 mcg-K 60 1 tab PO DAILY 10/28/23 11/02/23 History mcg-lycop 600 mcg-lutein 300 mcg tablet (Centrum Silver Men) cholecalciferol (vitamin D3) 25 25 mcg PO DAILY 10/31/23 11/02/23 History mcg (1,000 unit) capsule losartan 100 mg tablet 100 mg PO DAILY 10/31/23 11/03/23 History clopidogrel 75 mg tablet (Plavix) 75 mg PO DAILY #90 tabs 12/21/23 08/05/24 Rx arginine 7 gram-glutam 7 1 packet PO BIDCM #0 ea 03/02/24 Unknown Rx gram-CaHMB 1.5 vbic-qrrxy-hx-min oral pwd pkt (Renny (with collagen)) albuterol sulfate 2.5 mg/3 mL 2.5 mg inhalation Q4H PRN 07/19/24 Unknown History (0.083 %) solution for nebulization shortness of breath or wheezing acetaminophen 500 mg tablet 1,000 mg PO Q8H PRN pain 08/06/24 Unknown History aspirin 81 mg chewable tablet 1 tab PO DAILY 08/06/24 Unknown History gabapentin 300 mg capsule 300 mg PO QHS 08/06/24 Unknown History insulin lispro 100 unit/mL 1 sliding scale dose subcut ACHS 08/06/24 Unknown History subcutaneous pen (Humalog KwikPen (U-100) Insulin) Allergy/AdvReac Type Severity Reaction Status Date / Time No Known Allergies Allergy Verified 08/06/24 09:02 Family History Mother Diabetes Heart disease Father Diabetes Surgical History History of amputation History of incision and drainage (09/22/20) History of angioplasty of peripheral vessel (01/02/10) History of lumbar laminectomy History of femoropopliteal bypass (2008) H/O coronary artery bypass surgery (05/01/20) History of mechanical aortic valve replacement History of left heart catheterization (04/23/20) Social History household members: significant other Smoking Status: Light Smoker (<10/day) alcohol intake: never substance use type: does not use caffeine: No Physical Exam Narrative Vascular: DP and PT pulses are palpable to the right lower extremity. CFT is brisk to the TMA stump to the right foot. Skin temperature great is warm to warm from proximal ankles to distal digits. Skin temperature and turgor is within normal limits. Neurological: Light touch intact. Patient does not respond to painful stimuli. Dermatological: Right transmetatarsal amputation stump wound measures 1.5 x 1.4 x 0.5 cm, with graft intact. Negative probe to bone. No drainage no sign of infection. Right heel full-thickness wound measures 3.0 x 1.5 x 0.2 cm. All wounds are stable. Excisional debridement down to and including subcutaneous tissue of the right posterior heel with a number 5 mm dermal curette without incident. Predebridement measurement was 2.9 x 1.4 x 0.1 cm. Postdebridement measurement is 3.0 x 1.5 x 0.2 cm. Musculoskeletal: No pain to palpation to the full-thickness wounds to the right lower extremity. No pain with calf pressure. Const alert, oriented x3 and no apparent distress General Appearance: cooperative and comfortable Orientation / Consciousness: awake Lab / Micro Data 08/08/24 06:13 08/08/24 06:13 Labs: Laboratory Results - last 24 hr 08/07/24 06:05: Hemoglobin A1c 6.4 H 08/07/24 11:31: POC Glucose 98 08/07/24 21:25: Hgb 7.9 L, Hct 25.1 L 08/07/24 22:10: POC Glucose 142 H 08/07/24 23:45: Hgb 7.7 L, Hct 24.2 L
--- NOTE | 2024-08-08 09:16 | PCM.PN.HOSP ---
Reason for Visit Reason for Visit: Diagnoses Anemia, unspecified (08/06/24) Type 2 diabetes mellitus with diabetic polyneuropathy (08/06/24) Gastrointestinal hemorrhage, unspecified (08/06/24) Non-pressure chronic ulcer of right heel and midfoot with fat layer exposed (08/06/24) Non-pressure chronic ulcer of other part of right foot with fat layer exposed (08/06/24) Objective Data Objective Data Vital Signs: Vital Signs Temp Pulse Resp BP Pulse Ox O2 Del Method 97.7 F L 69 16 145/60 H 99 Room Air 08/08/24 06:30 08/08/24 06:30 08/08/24 06:30 08/08/24 06:30 08/08/24 06:30 08/08/24 06:30 Oxygen Delivery Method Room Air Weight: 220 lb 3.869 oz Body Mass Index (BMI) 30.7 Intake & Output: Intake and Output for Last 24 Hours 08/06/24 08/07/24 08/08/24 23:59 23:59 23:59 Intake Total 3040 / 3040 3120 / 3120 0 / 0 Output Total 1100 / 1100 1600 / 1600 350 / 350 Balance 1940 / 1940 1520 / 1520 -350 / -350 Lab / Micro Data 08/08/24 06:13 08/08/24 06:13 Labs: Laboratory Results - last 24 hr 08/07/24 06:05: Hemoglobin A1c 6.4 H 08/07/24 11:31: POC Glucose 98 08/07/24 21:25: Hgb 7.9 L, Hct 25.1 L 08/07/24 22:10: POC Glucose 142 H 08/07/24 23:45: Hgb 7.7 L, Hct 24.2 L 08/08/24 06:13: WBC 4.6, RBC 2.70 L, Hgb 7.9 L, Hct 25.5 L, MCV 94.4 H, MCH 29.3, MCHC 31.0 L, RDW Std Deviation 51.2 H, RDW Coeff of Estrada 14.8 H, Plt Count 174, MPV 10.2, Immature Gran % (Auto) 0.600, Neut % (Auto) 56.2, Lymph % (Auto) 28.9, Hart % (Auto) 10.2 H, Eos % (Auto) 3.7, Baso % (Auto) 0.4, Absolute Neuts (auto) 2.6, Absolute Lymphs (auto) 1.34, Nucleated RBC % 0, PT 22.7 H, INR 2.0, APTT 35.7, Sodium 142, Potassium 4.2, Chloride 115 H, Carbon Dioxide 20.0 L, Anion Gap 7, BUN 24 H, Creatinine 0.85, Estim Creat Clear Calc 95.99, Est GFR (MDRD) Af Amer 115, Est GFR (MDRD) Non-Af 95, BUN/Creatinine Ratio 28.4 H, Glucose 105, Calcium 8.5 08/08/24 06:28: POC Glucose 103 Micro: Microbiology 08/06/24 09:45 Stool Stool Occult Blood (CAMELIA) - Final Physical Exam Narrative Seen and examined. Denies shortness of breath or chest pain. No abdominal pain. No further bloody bowel movement. Hemoglobin has been between 7 to 8 g%. Physical exam: General: Alert, Oriented x3, Cooperative. BMI 30.2 kg/m?. HEENT: Atraumatic, PERRLA, EOMI, Normocephalic Oral: Oral mucosa moist. No Gingival or Mucosal Lesions/ Ulcerations Neck: Supple, No JVD, Negative Carotid Bruits Chest wall/Lungs: Air entry diminished in bilateral lung bases. No crepitation/rhonchi Cardiovascular: Status post CABG scar with unclosed sternotomy with overlying skin graft. Sinus rhythm, Normal S1, Normal S2. Mechanical aortic valve sound. Abdomen: Bowel Sounds Present, Soft, Non Tender, Non-Distended : No dysuria. No renal angle tenderness. No suprapubic tenderness. Extremities: Mild 1+ edema, Capillary Refill Less than 3 Seconds Skin: Right TMA. Musculoskeletal: No Tenderness to Palpation of Joints or Extremities. ROM limited. Decreased mobility Neurological: Cranial nerves II-XII grossly intact, DTR 2+/4. No acute focal neurological deficit. Psych/Mental Status: Normal Affect, Appropriate. Assessment & Plan Assessment/Plan (1) Acute GI bleeding: (2) Anemia: PLAN: Plan Patient is 73-year-old gentleman being admitted for GI bleed for last 2 days with severe anemia 1. Severe anemia, acute on chronic anemia due to GI blood loss: Patient is being admitted to PCU. H&H 6.5/21%. Platelet count 151 K. 2 units of PRBCs ordered. Patient had 1 L of IV normal saline bolus in ED and does not need further as he has significant heart failure and multiple cardiac comorbidity. Monitored H&H every 6 hourly after PRBC transfusion. Lasix 20 mg IV as needed between 2 transfusion for fluid overload. Pantoprazole 40 mg IV every 12 hourly. GI is consulted. Clear liquids. Plan for EGD tomorrow a.m. hold antiplatelet or 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 agent, aspirin Plavix and morphine. Patient baseline hemoglobin is around 8 g%. CT abdomen pelvis CTA does not show any acute abnormality. EGD on 08/07/2024 Impressions : - Normal esophagus. - Medium-sized hiatal hernia. - Chronic duodenitis. Biopsied. 08/08: Plan for colonoscopy today. 2. Chronic systolic and diastolic heart failure, history of thoracocentesis for right pleural effusion, CAD status post CABG 04/2020, history of mechanical [facility] AVR,: Hold baby aspirin, Plavix and warfarin as hemoglobin is very low as mentioned above. INR 2.2. PTT 36.8. Vitamin K was not given. No need for giving FFP. Chest x-ray ordered Patient follows with vascular surgeon Dr. Kendrick May and [place] [facility], Dhara Casas Last echo in November 07 shows EF 40 to 45%, normal appearing bioprosthetic aortic valve. Mild MR, mild TR. 08/08: Does not have acute cardiac symptoms including chest pain pressure or tightness or shortness of breath. 4. PAOD s/p fempop bypass: Patient follows Dr. Kendrick May. Right HERNESTO 0.67, moderate arterial insufficiency, Doppler PVR diminished in right ankle. Left HERNESTO 1.18 normal. Arterial duplex in July 10 patent left profunda PT bypass with no stenosis identified. 5. Restrictive lung disease: Patient last PFT in October 2022 showed moderately severe restrictive ventilatory defect with symmetric reduction in DLCO. Some stigmata of concomitant small liver disease, less consistent with COPD. Chest x-ray ordered 6. History of DVT: Patient on warfarin as an outpatient. Currently on hold 08/08: INR is 2.0. After colonoscopy, warfarin to be resumed. Patient has mechanical AV valve 7. Type 2 diabetes mellitus: Glucose is high at 261. Patient on Lantus insulin and sliding scale, regimen. Accu-Chek before meals and at bedtime with Humalog sliding scale coverage and hypoglycemia protocol. 8. DVT prophylaxis: Pharmacological prophylaxis contraindicated. Bilateral SCDs Living will/advanced directive/end of life care: Patient does have living will or advanced directive. Mariam is power of criminal attorney for health. After discussion of benefits/risks procedures involved with full code, DNR CC arrest and DNR CC, the patient opted for full code. Patient does want artificial life support including intubation, tube feed, ventilator and/chest compression, central venous catheter, vasopressor and DC shock if needed Total time spent in [id number] encounter in discussion of advanced directive 17 minutes. Microbiology Past 72 Hours 08/06/24 09:45 Stool Stool Occult Blood (CAMELIA) - Final Laboratory Results 08/06/24 09:50: WBC 4.3 L, RBC 2.18 L, Hgb 6.5 L, Hct 21.2 L, MCV 97.2 H, MCH 29.8, MCHC 30.7 L, RDW Std Deviation 52.6 H, RDW Coeff of Estrada 14.7 H, Plt Count 151, MPV 10.4, Immature Gran % (Auto) 0.500, Neut % (Auto) 64.0, Lymph % (Auto) 25.3, Hart % (Auto) 7.0, Eos % (Auto) 3.0, Baso % (Auto) 0.2, Absolute Neuts (auto) 2.8, Absolute Lymphs (auto) 1.09, Nucleated RBC % 0, PT 25.1 H, INR 2.2, APTT 36.8 H, Sodium 142, Potassium 4.8, Chloride 115 H, Carbon Dioxide 24.0, Anion Gap 3 L, BUN 61 H, Creatinine 1.36 H, Estim Creat Clear Calc 59.68, Est GFR (MDRD) Af Amer 66, Est GFR (MDRD) Non-Af 55 L, BUN/Creatinine Ratio 44.9 H, Glucose 261 H, Calcium 8.4 L, Total Bilirubin 0.50, AST 16, ALT 18, Alkaline Phosphatase 95, Total Protein 6.2 L, Albumin 3.0 L, Globulin 3.2, Albumin/Globulin Ratio 0.9, Lipase 22, Blood Type B POSITIVE, Antibody Screen NEGATIVE, Crossmatch See Detail 08/06/24 09:58: Lactic Acid 1.4 08/06/24 13:05: Urine Color Yellow, Urine Clarity Clear, Urine pH 6.0, Ur Specific [place] 1.015, Urine Protein 15 H, Urine Glucose (UA) Normal, Urine Ketones Negative, Urine Occult Blood Negative, Urine Nitrite Negative, Urine Bilirubin Negative, Urine Urobilinogen Normal, Ur Leukocyte Esterase Negative, Urine RBC Pending, Urine WBC Pending, Ur Squamous Epith Cells Pending, Urine Bacteria Pending, Urine Mucus Pending Clinical Impression(s) from Imaging Studies Abdomen/Pelvis CTA 08/06/24 09:46 IMPRESSION: Stable central right upper abdominal wall hernia. Scattered sigmoid diverticula. Charges/Coding Visit Charges Inpatient E&M: 99065 Subs Hosp L2
[2024-08-08] MEDS: Pantoprazole Sodium 40 MG in 0.9% Normal Saline (100mL MB+) 100 ML 330 MG IV ×2 (10:39→21:30)
[2024-08-08] MEDS: 0.9% Saline Lock 10 ML Syringe IV (10:40)
[2024-08-08] MEDS: Metoprolol(XL)Succ 25 MG Tablet PO (10:41)
[2024-08-08] MEDS: DOXEPIN HCL 50 MG CAPSULE PO (10:41)
[2024-08-08] MEDS: Gabapentin 100 MG Capsule PO (10:41)
--- NOTE | 2024-08-08 11:45 | PCM.PRE.AN2 ---
ASA Classification* ASA Classification ASA Classification: 4 Assessment & Plan Anesthesia* Anesthesia Assessment Anesthesia Assessment: Discussed sedation and/or anesthesia options, risks, benefits, and alternatives with patient/parents/legal guardian/POA. Questions invited. The patient/parents/legal guardian/POA seems to understand and agrees to proceed with anesthesia plan. Reviewed the physical assessment, medical history, allergy history and patient home medications list prior to surgery/procedure/anesthetic and documented any changes. Performed airway and anesthesia risk assessments. Anesthesia Type Anesthesia Type: MAC History Source History Obtained from:: Patient and Chart Anesthesia Focused Assessment* Temperature: 98.1 F Pulse Rate: 65 Blood Pressure: 128/61 Respiratory Rate: 16 Pulse Ox: 100 Airway Assessment Mouth opens: 2 cm Mallampati Score: III Teeth Condition: Intact, Chipped/Broken and Missing Focused Labs Anesthesia Preop lab: CBC WBC 4.6 K/mm3 (4.4-11.0) 08/08/24 06:13 RBC 2.70 M/mm3 (4.6-6.2) L 08/08/24 06:13 Hgb 7.9 g/dL (13.0-16.5) L 08/08/24 06:13 Hct 25.5 % (40-54) L 08/08/24 06:13 Plt Count 174 K/mm3 (150-450) 08/08/24 06:13 CHEMISTRY Potassium 4.2 mmol/L (3.5-5.1) 08/08/24 06:13 Sodium 142 mmol/L (136-145) 08/08/24 06:13 Magnesium 1.6 mg/dL (1.6-2.6) 02/24/24 17:00 Phosphorus 2.9 mg/dL (2.5-4.9) 12/15/22 08:26 BUN 24 mg/dL (7-18) H 08/08/24 06:13 Creatinine 0.85 mg/dL (0.70-1.30) 08/08/24 06:13 Glucose 105 mg/dL (74-106) 08/08/24 06:13 POC Glucose 103 mg/dL (74-106) 08/08/24 06:28 TSH 1.24 uIU/mL (0.358-3.74) 02/13/24 13:53 COAG PT 22.7 SECONDS (11.7-14.9) H 08/08/24 06:13 Pre-Assessment Diagnosis/Proposed Procedure Planned Operative Procedure(s): Esophagogastroduodenoscopy. Anesthesia History Anesthesia History - hansard reporter: Anesthesia History - hansard reporter Hx Hospitalization No 11/03/23 09:22 Any Problems With Anesthesia No 08/08/24 09:00 Cholinesterase deficiency No 08/08/24 09:00 You/Your Family Experience No 08/08/24 09:00 fever (hyperthermia) with Relationship Recent Exposure to Contagious No 08/08/24 09:00 Disease Does patient have nerve No 08/08/24 09:00 stimulator Patient instructed to have device shut off --Does patient have Pacemaker No 08/08/24 09:00 or ICD? When Was Last Pacemaker Check QUESTION #4 FULL TEXT: You/Your Family Experience fever (hyperthermia) with Anesthesia Last Oral Intake Last Oral intake: Last Oral Intake NPO since 00:01 08/08/24 09:00 Meds taken in AM with sips of Yes 08/08/24 09:00 water? Meds patient instructed to metoprolol, gabapentin, 08/08/24 09:00 take am of surgery doxepin PONV PONV - hansard reporter: PONV - hansard reporter Female HX of Motion Sickness HX of N/V After Surgery Non-Smoker Duration of Surgery greater than 60 minutes Number of Risk Factors PONV Score Height & Weight Height & Weight: Anesthesia: Height & Weight Height 5 ft 11 in 08/08/24 09:00 Weight: 99.9 kg 08/08/24 09:00 Body Mass Index (BMI) 30.7 08/08/24 09:00 Respiratory Assessment Respiratory Assessment - hansard reporter: Respiratory Tract Infection Hx - hansard reporter Hx Respiratory Tract Infection No 08/08/24 09:00 STOP Sleep Apnea STOP Sleep Apnea - hansard reporter: STOP Sleep Apnea - hansard reporter Hx Hypertension Yes 08/07/24 11:50 Hx Sleep Apnea No 08/07/24 16:05 CPAP No 08/07/24 15:52 BIPAP No 08/06/24 13:45 Do you snore loudly (louder No 08/06/24 13:45 than talking or can be heard Do you often feel tired/ No 08/06/24 13:45 fatigued/ sleepy during daytime? Has anyone observed you stop No 08/06/24 13:45 breathing during sleep? STOP Results Negative 08/07/24 15:52 QUESTION #5 FULL TEXT : Do you snore loudly (louder than talking or can be heard through closed doors)? Tobacco Use History Tobacco Use History - hansard reporter: Tobacco Use History - hansard reporter Tobacco Use Cigarettes 01/20/23 09:53 Smoking Status Light Smoker (<10/day) 08/07/24 07:12 Hx Tobacco Use Yes 08/06/24 13:45 Years Smoking Packs Smoked per Day Smoking Cessation Date was within the last 15 years Hx Smoking Cessation Date Hx Smoking Cessation No 08/06/24 13:45 Counseling Hematologic Medial History Hematologic Hx - hansard reporter: Hematologic Medical Hx - liquor clerk Hx of Blood Transfusion Yes 08/06/24 13:45 Hx of Transfusion in last 3 Yes 08/06/24 13:45 Months Date of Last Transfusion (if 08/06/24 08/06/24 13:45 within last 3 months) Ever experience any problems No 08/06/24 13:45 with transfusion(s)? Specify any problems Hx of Preganancy in last 3 N/A 08/06/24 13:45 Months Nurse Filling Out Transfusion NBILANCIN 08/06/24 13:45 & Questions: Date: 08/06/24 08/06/24 13:45 Time: 13:49 08/06/24 13:45 Patient unable to answer at this time (ie. confused, unrespo /Reproduction History /Reproductive History - hansard reporter: /Reproductive Hx- hansard reporter Hx Now Gestational Age (in weeks): EDC: Hx Hx Para Hx Section SAB No 08/08/24 09:00 Active Medications Active Medications: Current Medications Generic Name Dose Route Start Last Admin Trade Name Freq PRN Reason Stop Dose Admin Acetaminophen 1,000 mg 08/06/24 13:44 08/07/24 14:03 Acetaminophen 500 Mg Tablet PO 1,000 mg Q8H PRN Administration pain SCORE 1-10 Atorvastatin Calcium 40 mg 08/06/24 22:00 08/07/24 22:07 Atorvastatin Calcium 40 Mg Tablet PO 40 mg QHS ARIA Administration Cholecalciferol 25 mcg 08/07/24 10:00 08/08/24 09:53 Cholecalciferol (Vit D3) 25 Mcg Tablet (1,000 Units) PO Not Given DAILY [facility] Collagenase 1 applic 08/07/24 10:30 08/07/24 14:04 Collagenase 30gm Tube TOPICAL 1 appful Q48 [facility] Administration Protocol Cyclobenzaprine HCl 10 mg 08/06/24 13:44 Cyclobenzaprine Hcl 10 Mg Tablet PO Q8H PRN Muscle Pain Doxepin HCl 50 mg 08/07/24 10:00 08/08/24 10:41 Doxepin Hcl 50 Mg Capsule PO 50 mg DAILY [facility] Administration Ferrous Sulfate 325 mg 08/07/24 08:00 08/08/24 07:49 Ferrous Sulfate 325 Mg Tablet PO Not Given DAILYCM [facility] Furosemide 40 mg 08/07/24 08:00 08/08/24 07:50 Furosemide 40 Mg Tablet PO Not Given DAILY@0800 [facility] Protocol Gabapentin 100 mg 08/07/24 10:00 08/08/24 10:41 Gabapentin 100 Mg Capsule PO 100 mg DAILY [facility] Administration Gabapentin 300 mg 08/06/24 22:00 08/07/24 22:07 Gabapentin 300 Mg Capsule PO 300 mg QHS [facility] Administration Pantoprazole Sodium 40 mg/ 110 mls @ 330 mls/hr 08/06/24 22:00 08/08/24 11:17 Sodium Chloride IV Infused Q12 [facility] Infusion Sodium Chloride 100 mls @ 15 mls/hr 08/06/24 14:02 IV .Q6H40M PRN SALINE FLUSH Insulin Glargine 12 unit 08/06/24 22:00 08/07/24 22:11 Insulin Glargine-Yfgn 100 Unit/Ml Pen SC Not Given QHS [facility] Insulin Human Lispro 5 unit 08/06/24 16:00 08/08/24 06:33 Insulin Lispro 100 Unit/Ml Insuln.Pen SC Not Given ACHS [facility] Insulin Human Lispro 0 unit 08/06/24 16:00 08/08/24 06:33 Insulin Lispro 100 Unit/Ml Insuln.Pen SC Not Given ACHS [facility] Protocol L-Arginine/L-Glutamine/Calcium HMB 1 packet 08/06/24 17:00 08/08/24 07:50 Renny (Unflavored) Packet PO Not Given BIDCM [facility] Losartan Potassium 50 mg 08/07/24 10:00 08/08/24 10:41 Losartan Potassium 50 Mg Tablet PO Not Given DAILY [facility] Protocol Metoprolol Succinate 25 mg 08/07/24 10:00 08/08/24 10:41 Metoprolol(Xl)Succ 25 Mg Tablet PO 25 mg DAILY [facility]A Administration Protocol Mirtazapine 7.5 mg 08/06/24 22:00 08/07/24 22:06 Mirtazapine 15 Mg Tablet PO 7.5 mg QHS ARIA Administration Senna/Docusate Sodium 2 tablet 08/06/24 13:44 Senna/Docusate Sodium 1 Tablet PO BID PRN PRN Constipation Sodium Chloride 10 - 40 ml 08/06/24 14:02 08/08/24 10:40 0.9% Saline Lock 10 Ml Syringe IV 10 ml UD PRN Administration SALINE FLUSH [facility] Medical History Non-pressure chronic ulcer of right heel and midfoot with fat layer exposed Non-pressure chronic ulcer of other part of right foot with bone involvement without evidence of necrosis Non-pressure chronic ulcer of right heel and midfoot with necrosis of muscle Non-pressure chronic ulcer of other part of right foot with muscle involvement without evidence of necrosis Non-pressure chronic ulcer of other part of right lower leg with fat layer exposed Diabetes mellitus PVD (peripheral vascular disease) Anemia Diabetic foot infection PAOD (peripheral arterial occlusive disease) Trigger finger of both hands Amputation of second toe, right, traumatic Aftercare following surgery of the circulatory system Anemia Hyperbilirubinemia Nicotine dependence, cigarettes, uncomplicated Atherosclerosis of [place] arteries of right leg with ulceration of other part of foot Non-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 Peripheral vascular occlusive disease Diabetic ulcer of toe of left foot associated with type 2 diabetes mellitus Ulcer of toe of left foot Atherosclerosis of [place] arteries of left leg with ulceration of other part of foot Wears glasses Alcohol use Insulin dependent diabetes mellitus Back pain Syncope Dietary restriction Cardiology follow-up encounter History of rheumatic fever ZOFIA (acute kidney injury) Recurrent right pleural effusion Osteomyelitis of toe of right foot Non-pressure chronic ulcer of other part of left foot with fat layer exposed Acute exacerbation of CHF (congestive heart failure) Anticoagulant long-term use Acute and chronic respiratory failure with hypercapnia Encephalopathy acute Acute hypercapnic respiratory failure Atherosclerosis of lower extremity with ulceration COPD (chronic obstructive pulmonary disease) Inability to walk Adult failure to thrive CHF (congestive heart failure) Smoker Congestive heart failure Sternal wound infection 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 MSSA (methicillin susceptible Staphylococcus aureus) infection History of non-ST elevation myocardial infarction (NSTEMI) (04/23/20) Non-healing surgical wound (05/01/20) [facility] current use of 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 Chronic combined systolic and diastolic CHF (congestive heart failure) Type 2 diabetes mellitus Atherosclerosis of coronary artery without angina pectoris Nicotine dependence Ischemic cardiomyopathy Secondary pulmonary arterial hypertension Essential (primary) hypertension Nonrheumatic aortic (valve) stenosis 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 Osteomyelitis Diabetic foot infection Bleeding disorder Ulcer of right foot with fat layer exposed COPD (chronic obstructive pulmonary disease) Hyperlipidemia DVT (deep venous thrombosis) GERD (gastroesophageal reflux disease) Home Medications ?Medication ?Instructions ?Recorded ?Last Taken ?Type atorvastatin 40 mg tablet 40 mg PO QHS cholesterol 11/12/20 11/03/23 History ferrous sulfate 325 mg (65 mg 325 mg PO DAILY 10/29/22 11/02/23 History iron) tablet furosemide 40 mg tablet 40 mg PO DAILY #0 tabs 11/12/22 11/02/23 Rx cyclobenzaprine 10 mg tablet 10 mg PO Q8H PRN Muscle Pain 12/11/22 11/02/23 History insulin lispro 100 unit/mL 5 unit subcut ACHS 12/11/22 11/03/23 History subcutaneous pen (Humalog KwikPen (U-100) Insulin) pantoprazole 40 mg tablet,delayed 40 mg PO QDAY 10/04/23 11/02/23 History release doxepin 50 mg capsule 50 mg PO DAILY 10/28/23 11/02/23 History gabapentin 100 mg capsule 100 mg PO DAILY pain 10/28/23 08/07/24 History insulin glargine-yfgn 100 unit/mL 15 unit subcut QHS 10/28/23 11/03/23 History (3 mL) subcutaneous pen linagliptin 5 mg tablet (Tradjenta) 5 mg PO DAILY 10/28/23 11/03/23 History metoprolol succinate 25 mg 25 mg PO DAILY bp 10/28/23 08/07/24 History tablet,extended release 24 hr mirtazapine 7.5 mg tablet 7.5 mg PO QHS 10/28/23 11/03/23 History nhkgpzwk-sb-hsruj 300 mcg-K 60 1 tab PO DAILY 10/28/23 11/02/23 History mcg-lycop 600 mcg-lutein 300 mcg tablet (Centrum Silver Men) cholecalciferol (vitamin D3) 25 25 mcg PO DAILY 10/31/23 11/02/23 History mcg (1,000 unit) capsule losartan 100 mg tablet 100 mg PO DAILY 10/31/23 11/03/23 History clopidogrel 75 mg tablet (Plavix) 75 mg PO DAILY #90 tabs 12/21/23 08/05/24 Rx arginine 7 gram-glutam 7 1 packet PO BIDCM #0 ea 03/02/24 Unknown Rx gram-CaHMB 1.5 pcfy-panea-eu-min oral pwd pkt (Renny (with collagen)) albuterol sulfate 2.5 mg/3 mL 2.5 mg inhalation Q4H PRN 07/19/24 Unknown History (0.083 %) solution for nebulization shortness of breath or wheezing acetaminophen 500 mg tablet 1,000 mg PO Q8H PRN pain 08/06/24 Unknown History aspirin 81 mg chewable tablet 1 tab PO DAILY 08/06/24 Unknown History gabapentin 300 mg capsule 300 mg PO QHS 08/06/24 Unknown History insulin lispro 100 unit/mL 1 sliding scale dose subcut ACHS 08/06/24 Unknown History subcutaneous pen (Humalog KwikPen (U-100) Insulin) Allergy/AdvReac Type Severity Reaction Status Date / Time No Known Allergies Allergy Verified 08/06/24 09:02 Family History Mother Diabetes Heart disease Father Diabetes Surgical History History of amputation History of incision and drainage (09/22/20) History of angioplasty of peripheral vessel (01/02/10) History of lumbar laminectomy History of femoropopliteal bypass (2008) H/O coronary artery bypass surgery (05/01/20) History of mechanical aortic valve replacement History of left heart catheterization (04/23/20) Social History household members: significant other Smoking Status: Light Smoker (<10/day) alcohol intake: never substance use type: does not use caffeine: No Review of Systems (Anesthesia) ROS Narrative System reviewed and no additional complaints, except as documented. Physical Exam Const oriented x3 Neck full ROM Resp normal respiratory effort and normal air movement Cardio regular rate and regular rhythm Neuro oriented x3 and moves all extremities
--- NOTE | 2024-08-08 12:36 | EX.PCM.PN.GI ---
Subjective Subjective Patient had an upper endoscopy yesterday. It was normal. He has been prepping for colonoscopy overnight as had a lot of GI bleeding overnight. Objective Data Objective Data Vital Signs: Vital Signs Temp Pulse Resp BP Pulse Ox O2 Del Method 98.1 F 65 16 128/61 H 100 Room Air 08/08/24 11:48 08/08/24 11:48 08/08/24 11:48 08/08/24 11:48 08/08/24 11:48 08/08/24 10:44 Oxygen Delivery Method Room Air Weight: 220 lb 3.869 oz Body Mass Index (BMI) 30.7 Intake & Output: Intake and Output for Last 24 Hours 08/06/24 08/07/24 08/08/24 23:59 23:59 23:59 Intake Total 3040 / 3040 3120 / 3120 110 / 110 Output Total 1100 / 1100 1600 / 1600 350 / 350 Balance 1940 / 1940 1520 / 1520 -240 / -240 Lab / Micro Data 08/08/24 06:13 08/08/24 06:13 Labs: Laboratory Results - last 24 hr 08/07/24 21:25: Hgb 7.9 L, Hct 25.1 L 08/07/24 22:10: POC Glucose 142 H 08/07/24 23:45: Hgb 7.7 L, Hct 24.2 L 08/08/24 06:13: WBC 4.6, RBC 2.70 L, Hgb 7.9 L, Hct 25.5 L, MCV 94.4 H, MCH 29.3, MCHC 31.0 L, RDW Std Deviation 51.2 H, RDW Coeff of Estrada 14.8 H, Plt Count 174, MPV 10.2, Immature Gran % (Auto) 0.600, Neut % (Auto) 56.2, Lymph % (Auto) 28.9, [place] % (Auto) 10.2 H, Eos % (Auto) 3.7, Baso % (Auto) 0.4, Absolute Neuts (auto) 2.6, Absolute Lymphs (auto) 1.34, Nucleated RBC % 0, PT 22.7 H, INR 2.0, APTT 35.7, Sodium 142, Potassium 4.2, Chloride 115 H, Carbon Dioxide 20.0 L, Anion Gap 7, BUN 24 H, Creatinine 0.85, Estim Creat Clear Calc 95.99, Est GFR (MDRD) Af Amer 115, Est GFR (MDRD) Non-Af 95, BUN/Creatinine Ratio 28.4 H, Glucose 105, Calcium 8.5 08/08/24 06:28: POC Glucose 103 Micro: Microbiology 08/06/24 09:45 Stool Stool Occult Blood (CAMELIA) - Final Physical Exam Const oriented x3 Neck full ROM Resp normal respiratory effort and normal air movement Cardio regular rate and regular rhythm Neuro oriented x3 and moves all extremities Assessment & Plan Assessment/Plan (1) Acute GI bleeding: (2) Anemia: PLAN: Plan Patient is 73-year-old gentleman being admitted for GI bleed for last 2 days with severe anemia The differential diagnosis for his severe anemia, acute on chronic anemia does include GI blood loss. He will undergo an upper endoscopy to evaluate his upper GI tract. Depending on what the upper GI tract endoscopy shows he may need a colonoscopy plus minus a capsule endoscopy. He had a CT angiography did not show any signs of active bleeding.:%. Platelet count 151 K. 2 units of PRBCs ordered. Plan for EGD tomorrow a.m. hold antiplatelet or 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 agent, aspirin Plavix and morphine. Patient baseline hemoglobin is around 8 g%. CT abdomen pelvis CTA does not show any acute abnormality. 08/08/2024-plan is for colonoscopy today to evaluate lower GI bleeding source. Patient was explained alternatives including not withstanding bleeding, infection, sepsis, perforation, need emergent urgent . He will have an ASA of 3. Charges/Coding Visit Charges Inpatient E&M: 11138 Subs Hosp L3
--- NOTE | 2024-08-08 13:08 | OP.CCLET_ITS ---
08/08/2024 Saurabh Hernandez MD [address] [place] [address] Re : Colonoscopy procedure for Sky Coronel Dear Dr. Hernandez This procedure was performed on Thursday, August 08, 2024. My impressions and recommendations are as follows: Impressions : - Preparation of the colon was fair. - Diverticulosis in the recto-sigmoid colon, in the sigmoid colon and in the descending colon. - Stool in the rectum, in the recto-sigmoid colon, in the transverse colon, in the ascending colon and in the cecum. - A single bleeding colonic angiodysplastic lesion. Treated with a heater probe. Clip was placed. Clip orthopedic assistant: [employer] - The examined portion of the ileum was normal. - No specimens collected. Recommendations : - Return patient to hospital [facility] for ongoing care. - Resume previous diet. - Continue present medications. - Repeat colonoscopy in 1 year for surveillance. My findings are described in the full procedure note, which is enclosed. If I can be of further assistance, please feel free to contact me at . Sincerely, Anatoly Moss, 08/08/2024 1:07:36 PM This report has been signed electronically.
--- NOTE | 2024-08-08 13:08 | OP.COLON_ITS ---
Patient Name: Sky Coronel Procedure Date: 08/08/2024 12:37 PM Date of : 1950 Age: 73 Procedure: Colonoscopy Indications: Hematochezia Providers: Anatoly Moss DO Medicines: Monitored Anesthesia Care Patient Profile: This is a 73 year old male. Refer to note in patient chart for documentation of history and physical. Last Colonoscopy: several years ago. Complications: No immediate complications. Procedure: Pre-Anesthesia Assessment: - Prior to the procedure, a History and Physical was performed, and patient medications and allergies were reviewed. The patient is competent. The risks and benefits of the procedure and the sedation options and risks were discussed with the patient. All questions were answered and informed consent was obtained. Patient identification and proposed procedure were verified by the physician in the pre-procedure area. Mental Status Examination: alert and oriented. Airway Examination: normal oropharyngeal airway and neck mobility. Respiratory Examination: clear to auscultation. CV Examination: normal. Prophylactic Antibiotics: The patient does not require prophylactic antibiotics. Prior Anticoagulants: The patient has taken no 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 or antiplatelet agents except for NSAID medication. ASA Grade Assessment: III - A patient with severe systemic disease. After reviewing the risks and benefits, the patient was deemed in satisfactory condition to undergo the procedure. The anesthesia plan was to use monitored anesthesia care (MAC). Immediately prior to administration of medications, the patient was re-assessed for adequacy to receive sedatives. The heart rate, respiratory rate, oxygen saturations, blood pressure, adequacy of pulmonary ventilation, and response to care were monitored throughout the procedure. The physical status of the patient was re-assessed after the procedure. After I obtained informed consent, the scope was passed under direct vision. Throughout the procedure, the patient's blood pressure, pulse, and oxygen saturations were monitored continuously. The pediatric colonoscope was introduced through the anus and advanced to the terminal ileum. The colonoscopy was performed without difficulty. The patient tolerated the procedure well. The quality of the bowel preparation was fair. The terminal ileum, ileocecal valve, appendiceal orifice, and rectum were photographed. Scope In: 12:44:25 PM Scope Withdrawal Time 0 hours 12 minutes 27 seconds Scope Out: 1:01:53 PM Total Procedure Duration Time 0 hours 17 minutes 28 seconds Findings: The perianal and digital rectal examinations were normal. A few small-mouthed diverticula were found in the recto-sigmoid colon, sigmoid colon and descending colon. Stool was found in the rectum, in the recto-sigmoid colon, in the transverse colon, in the ascending colon and in the cecum, making visualization difficult. Lavage of the area was performed using copious amounts of sterile water, resulting in clearance with fair visualization. A single large localized angiodysplastic lesion with bleeding was found in the cecum. Coagulation for hemostasis using heater probe was successful. To prevent bleeding post-maneuver, one hemostatic clip was successfully placed. Clip scientific recruiter: [employer]. There was no bleeding at the end of the procedure. The terminal ileum appeared normal. Impression: - Preparation of the colon was fair. - Diverticulosis in the recto-sigmoid colon, in the sigmoid colon and in the descending colon. - Stool in the rectum, in the recto-sigmoid colon, in the transverse colon, in the ascending colon and in the cecum. - A single bleeding colonic angiodysplastic lesion. Treated with a heater probe. Clip was placed. Clip scientific recruiter: [employer]. - The examined portion of the ileum was normal. - No specimens collected. Recommendation: - Return patient to hospital [facility] for ongoing care. - Resume previous diet. - Continue present medications. - Repeat colonoscopy in 1 year for surveillance. Procedure Code(s): --- Professional --- 78611, Colonoscopy, flexible; with control of bleeding, any method CPT copyright 2021 [employer]. All rights reserved. The codes documented in this report are preliminary and upon engineering team supervisor review may be revised to meet current compliance requirements. Anatoly Moss DO 08/08/2024 1:07:36 PM This report has been signed electronically. Number of Addenda: 0 Note Initiated On: 08/08/2024 12:37 PM
--- NOTE | 2024-08-08 13:14 | PCM.POST.ANE ---
Anesthesia: Postop Eval I Current Vital Signs Temperature: 97.8 F Pulse Rate: 68 Blood Pressure: 126/50 Respiratory Rate: 16 Pulse Ox: 100 Oxygen Delivery Method: Room Air Assessment Airway patent: Yes Spontaneous unlabored respirations: Yes Mental status: Awake and Calm nausea: No Vomiting: No Anesthesia Complication: Yes Anesthesia Complication Comment:: hypotension with low HR, ephedrine adm IV Fluid Hydration Crystalloid volume administer (ml): 40 Total IV fluid infused: 40 Progress Note Anesthesia document: Postop Eval 1 completed: Yes
[2024-08-08 14:54] LABS: Bedside Glucose 101 mg/dL (74-106)
[2024-08-08] MEDS: Insulin Lispro 100 UNIT/ML INSULN.PEN SC ×3 (16:46→21:25)
[2024-08-08] MEDS: Juven (unflavored) Packet 1 PACKET PO (16:46)
[2024-08-08 17:39] LABS: Bedside Glucose 147 mg/dL (74-106)
[2024-08-08] MEDS: Insulin Glargine-YFGN 100 UNIT/ML Pen 12 UNIT SC (21:26)
[2024-08-08] MEDS: Atorvastatin Calcium 40 MG Tablet PO (21:29)
[2024-08-08] MEDS: Gabapentin 300 MG Capsule PO (21:29)
[2024-08-08] MEDS: Mirtazapine 15 MG Tablet 7.5 MG PO (21:29)
[2024-08-08] MEDS: Acetaminophen 500 MG Tablet 1000 MG PO (21:37)
[2024-08-09 01:37] LABS: Bedside Glucose 216 mg/dL (74-106)
[2024-08-09 02:00] VITALS: BP 117/50; PULSE 63; RESP 20; TEMP 36.7; O2SAT 95
[2024-08-09 05:10] LABS: Absolute Lymphocyte Count 1.24 X10^3/uL (0.83-4.51); Basophil# 0.01 X10^3/uL; Basophil% 0.3 % (0-1); Eosinophil# 0.11 X10^3/uL; Eosinophils% 2.9 % (0-5); Hematocrit 22.4 % (40-54); Hemoglobin 7.1 g/dL (13.0-16.5); Lymphocyte # 1.24 X10^3/ul (0.83-4.51); Lymphocyte % 33.2 % (19-41); Mean Corp Hgb Conc 31.7 g/dL (32-36); Mean Corpuscular Hgb 29.6 pg (27.0-32.0); Mean Corpuscular Volume 93.3 fL (80-94); Mean Platelet Vol. 10.2 fl (6.2-12.0); Monocyte% 10.7 % (0-10); NRBC Flagged by Analyzer 0 % (0-5); Neutrophil # 1.96 X10^3/uL (2.7-7.7); Neutrophil % 52.4 % (47-70); Platelet Count 166 K/mm3 (150-450); RBC Distribution Width CV 14.7 % (11.6-14.6); RBC Distribution Width SD 50.3 fl (35.1-43.9); White Blood Count 3.7 K/mm3 (4.4-11.0)
[2024-08-09 05:33] LABS: International Normalized Ratio 1.7; Prothrombin Time (Protime)PT. 20.5 SECONDS (11.7-14.9)
[2024-08-09 05:34] VITALS: BMI 31.7
[2024-08-09 05:35] LABS: Anion Gap 6 (5-15); BUN 27 mg/dL (7-18); BUN/Creat Ratio 21.1 RATIO (10-20); Calcium,Total 8.3 mg/dL (8.5-10.1); Chloride 114 mmol/L (98-107); Creatinine, Serum 1.28 mg/dL (0.70-1.30); EST Glomerular Filtration Rate 59 mL/min (>60); Est Glom Filt Rate - Afr Amer 71 mL/min (>60); Estimated Creatinine Clearance 64.73 ml/min; Glucose 137 mg/dL (74-106); Potassium 4.6 mmol/L (3.5-5.1); Sodium Level 140 mmol/L (136-145)
[2024-08-09 07:00] VITALS: BP 118/56; PULSE 72; RESP 18; TEMP 36.6; O2SAT 97
[2024-08-09 07:06] VITALS: O2SAT 91
[2024-08-09 08:59] LABS: Bedside Glucose 145 mg/dL (74-106)
[2024-08-09] MEDS: Juven (unflavored) Packet 1 PACKET PO ×2 (09:14→16:32)
[2024-08-09] MEDS: Ferrous Sulfate 325 MG Tablet PO (09:14)
[2024-08-09] MEDS: Insulin Lispro 100 UNIT/ML INSULN.PEN SC ×7 (09:14→21:03)
[2024-08-09 09:15] VITALS: PULSE 80
[2024-08-09] MEDS: DOXEPIN HCL 50 MG CAPSULE PO (09:15)
[2024-08-09] MEDS: Cholecalciferol (VIT D3) 25 MCG TABLET (1,000 UNITS) PO (09:15)
[2024-08-09] MEDS: Losartan Potassium 50 MG Tablet PO (09:15)
[2024-08-09] MEDS: Metoprolol(XL)Succ 25 MG Tablet PO (09:15)
[2024-08-09] MEDS: Furosemide 40 MG Tablet PO (09:15)
[2024-08-09] MEDS: Pantoprazole Sodium 40 MG in 0.9% Normal Saline (100mL MB+) 100 ML 330 MG IV ×2 (09:18→20:55)
[2024-08-09] MEDS: Gabapentin 100 MG Capsule PO (09:18)
[2024-08-09] MEDS: Collagenase 30gm Tube 1 APPLIC TOPICAL (09:19)
[2024-08-09] MEDS: 0.9% Saline Lock 10 ML Syringe IV ×2 (09:19→20:55)
--- NOTE | 2024-08-09 09:55 | PN.HOSP_ITS ---
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 Treated with a heater probe. Restarted patient Coumadin today Objective Data Objective Data Vital Signs: Vital Signs Temp Pulse Resp BP Pulse Ox O2 Del Method 98 F 80 18 118/56 L 97 Room Air 08/09/24 07:00 08/09/24 09:15 08/09/24 07:00 08/09/24 07:00 08/09/24 07:00 08/09/24 09:39 Oxygen Delivery Method Room Air Weight: 103.2 kg Body Mass Index (BMI) 31.7 Intake & Output: Intake and Output for Last 24 Hours 08/07/24 08/08/24 08/09/24 23:59 23:59 23:59 Intake Total 3120 / 3120 920 / 1280 470 / 470 Output Total 1600 / 1600 1000 / 1200 350 / 350 Balance 1520 / 1520 -80 / 80 120 / 120 Lab / Micro Data 08/09/24 04:32 08/09/24 04:32 Labs: Laboratory Results - last 24 hr 08/08/24 14:22: POC Glucose 101 08/08/24 16:44: POC Glucose 147 H 08/08/24 21:21: POC Glucose 216 H 08/09/24 04:32: WBC 3.7 L, RBC 2.40 L, Hgb 7.1 L, Hct 22.4 L, MCV 93.3, MCH 29.6, MCHC 31.7 L, RDW Std Deviation 50.3 H, RDW Coeff of Estrada 14.7 H, Plt Count 166, MPV 10.2, Immature Gran % (Auto) 0.500, Neut % (Auto) 52.4, Lymph % (Auto) 33.2, [place] % (Auto) 10.7 H, Eos % (Auto) 2.9, Baso % (Auto) 0.3, Absolute Neuts (auto) 2.0, Absolute Lymphs (auto) 1.24, Nucleated RBC % 0, PT 20.5 H, INR 1.7, Sodium 140, Potassium 4.6, Chloride 114 H, Carbon Dioxide 20.0 L, Anion Gap 6, B UN 27 H, Creatinine 1.28, Estim Creat Clear Calc 64.73, Est GFR (MDRD) Af Amer 71, Est GFR (MDRD) Non-Af 59 L, BUN/Creatinine Ratio 21.1 H, Glucose 137 H, C alcium 8.3 L 08/09/24 08:39: POC Glucose 145 H Micro: Microbiology 08/06/24 09:45 Stool Stool Occult Blood (CAMELIA) - Final Physical Exam Narrative GENERAL: cooperative HEENT: Atraumatic; normocephalic EYES; Anicteric, Normal Conjunctiva NECK; supple, normal thyroid, RESPIRATORY: Diminished to auscultation CARDIOVASCULAR: Regular S1 S2,, systolic click GI: soft, normoactive bowel sounds, : No Renal angle tenderness; EXTREMITIES: Right heel ulcer and surgical dressing MUSCULOSKELETAL: no muscle wasting NEURO: Awake; no lateralizing signs. SKIN: No Rash PSYCH; Flat affect Assessment & Plan Assessment/Plan (1) Acute GI bleeding: (2) Anemia: PLAN: Plan Patient is 73-year-old gentleman being admitted for GI bleed for last 2 days with severe anemia 1. Severe anemia, - acute on chronic anemia due to GI blood loss: Patient is being admitted to PCU. H&H 6.5/21%. Platelet count 151 K. 2 units of PRBCs ordered. Patient had 1 L of IV normal saline bolus in ED and does not need further as he has significant heart failure and multiple cardiac comorbidity. Monitored H&H every 6 hourly after PRBC transfusion. Lasix 20 mg IV as needed between 2 transfusion for fluid overload. Pantoprazole 40 mg IV every 12 hourly. GI is consulted. Clear liquids. Plan for EGD tomorrow a.m. hold antiplatelet or 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 agent, aspirin Plavix and morphine. Patient baseline hemoglobin is around 8 g%. CT abdomen pelvis CTA does not show any acute abnormality. EGD on 08/07/2024 Impressions : - Normal esophagus. - Medium-sized hiatal hernia. - Chronic duodenitis. Biopsied. 08/08: Plan for colonoscopy today. Colonoscopy on 08/08/2024 - Preparation of the colon was fair. - Diverticulosis in the recto-sigmoid colon, in the sigmoid colon and in the descending colon. - Stool in the rectum, in the recto-sigmoid colon, in the transverse colon, in the ascending colon and in the cecum. - A single bleeding colonic angiodysplastic lesion. Treated with a heater probe. Clip was placed. Clip solar manufacturer's representative: [employer]. - The examined portion of the ileum was normal. - No specimens collected. Recommendations : - Repeat colonoscopy in 1 year for surveillance. 2. Anemia ? Secondary to combination of acute blood loss anemia as well as anemia of chronic disorder. Patient has been transfused with 2 unit PRBC so far. Monitoring H&H and transfuse if patient becomes symptomatic or hemoglobin falls below 7 3. Chronic congestive heart failure with reduced ejection fraction ? Echo from October 2022 demonstrated EF of 40 to 45%. Patient remains euvolemic 4. Coronary artery disease ? With previous CABG patient is on dual antiplatelet therapy with aspirin and Plavix held given his presentation 5. 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 Patient is on warfarin held on admission placed on heparin. Patient warfarin started on 08/09/2024 with INR goal of 2.5-3.5 6. Restrictive lung disease ? Patient last PFT in October 2022 showed moderately severe restrictive ventilatory defect with symmetric reduction in DLCO. Some stigmata of concomitant small liver disease, less consistent with COPD. 7. History of DVT ? Patient was on warfarin with plans to resume statin 08/09/2024 8. Right heel ulcer ? Wound care nurse consulted 9. Diabetes mellitus type II -. Placed on long acting insulin, Accu-Cheks a.c. and at bedtime and covered with sliding scale insulin 10. 5. Peripheral arterial disease ? With history of femoropopliteal bypass patient antiplatelet therapy held given above plan is to resume on discharge 11. DVT prophylaxis ? Patient is on heparin Time spent in the patient's overall evaluation,decision-making process, review of diagnostic data, adjustment of management, discussion with other providers, nursing nursing and ancillary staff involved in patient's care documentation, 52 Minutes Charges/Coding Visit Charges Inpatient E&M: 31688 [facility] Hosp L3
[2024-08-09 11:40] LABS: Bedside Glucose 190 mg/dL (74-106)
[2024-08-09 12:43] LABS: Hematocrit 23.7 % (40-54); Hemoglobin 7.6 g/dL (13.0-16.5)
[2024-08-09 13:49] VITALS: BP 112/54; PULSE 74; RESP 16; TEMP 36.7; O2SAT 97
--- NOTE | 2024-08-09 16:00 | CHAPLAIN ---
Type of Pastoral Visit _x__ Initial Visit ___ Follow-up Visit ___ On-call Visit ___ General Patient Visit ___ Spiritual Assessment ___ Family Conference ___ Bereavement ___ Rapid Response ___ Code Blue ___ Other (describe below) Pastoral Care Referral From _x__ Patient ___ Family ___ Nurse ___ Physician ___ Corporate Administrative Assistant ___ Emergency Room Nurse ___ Other (describe below) Sacrament/Intervention _x__ Active listening ___ Anointing ___ Scientologist ___ Bereavement ___ Communion ___ Temi exploration ___ _x__ Life review ___ Prayer ___ Reconciliation ___ Sacrament of Sick _x__ Supportive presence ___ Wedding ___ Other (describe below) Pastoral Comments patient responds to questions being asked about his situation, his coping, and his plan going forward; pt is open to admit that his best coping mechanism is to be determined and push through because we are hard people and we face it as it comes; pt denies any needs; pt has plan to return to [facility] but hopes to eventually get back home to live with a cousin;
[2024-08-09 16:55] LABS: Bedside Glucose 152 mg/dL (74-106)
--- NOTE | 2024-08-09 19:19 | PCM.POSTANE2 ---
Anesthesia Postop Eval I Sum Postop Eval Completion status Anesthesia document: Postop Eval 1 completed: Yes Anesthesia Postop Eval I Summary Anesthesia Postop Eval I Summary: Anesthesia Postop Eval I: Assessment Summary Airway patent Yes 08/08/24 13:16 [email or web address] Spontaneous unlabored Yes 08/08/24 13:16 [email or web address] respirations Mental status Awake,Calm 08/08/24 13:16 [email or web address] nausea No 08/08/24 13:16 [email or web address] Vomiting No 08/08/24 13:16 [email or web address] Anesthesia Postop Eval I: Fluid Summary Crystalloid volume administer 40 08/08/24 13:16 [email or web address] (ml) Colloids volume administered ( ml) Blood Product volume administered (ml) Total IV fluid infused 40 08/08/24 13:16 [email or web address] Anesthesia Postop Eval I: Summary Notes Anesthesia Complication Yes 08/08/24 13:16 [email or web address] Anesthesia Complication hypotension with 08/08/24 13:16 [email or web address] Comment: low HR, ephedrine adm IV Post-operative progress note Anesthesia: Postop Eval II Evaluation Mental status: Awake and Calm Pain Level: 0 nausea: No Vomiting: No Progress Note Post-operative progress note: No issues with hypotension in PACU. Complications Anesthesia Complication: No
--- NOTE | 2024-08-09 19:23 | ANES.CONFIRM ---
Anesthesia: Confirm Documents Multiple Procedures on Account (2) Confirmed Documents: Yes
[2024-08-09 20:43] VITALS: BP 127/56; PULSE 71; RESP 20; TEMP 37.1; O2SAT 100
[2024-08-09] MEDS: Atorvastatin Calcium 40 MG Tablet PO (21:04)
[2024-08-09] MEDS: Insulin Glargine-YFGN 100 UNIT/ML Pen 12 UNIT SC (21:04)
[2024-08-09] MEDS: Mirtazapine 15 MG Tablet 7.5 MG PO (21:05)
[2024-08-09] MEDS: Gabapentin 300 MG Capsule PO (21:09)
[2024-08-09 23:04] LABS: Bedside Glucose 160 mg/dL (74-106)
[2024-08-10 02:53] VITALS: BP 107/55; PULSE 73; RESP 18; TEMP 36.4; O2SAT 97
[2024-08-10 05:46] VITALS: BMI 31.7
[2024-08-10 05:48] LABS: Absolute Lymphocyte Count 0.96 X10^3/uL (0.83-4.51); Absolute Neutrophil Count 2.5 X10^3/uL (2.0-7.7); Basophil# 0.01 X10^3/uL; Basophil% 0.2 % (0-1); Eosinophil# 0.11 X10^3/uL; Eosinophils% 2.7 % (0-5); Hematocrit 22.5 % (40-54); Hemoglobin 7.4 g/dL (13.0-16.5); Lymphocyte # 0.96 X10^3/ul (0.83-4.51); Lymphocyte % 23.8 % (19-41); Mean Corp Hgb Conc 32.9 g/dL (32-36); Mean Corpuscular Hgb 30.5 pg (27.0-32.0); Mean Corpuscular Volume 92.6 fL (80-94); Mean Platelet Vol. 10.1 fl (6.2-12.0); Monocyte# 0.44 X10^3/uL; Monocyte% 10.9 % (0-10); NRBC Flagged by Analyzer 0 % (0-5); Neutrophil # 2.49 X10^3/uL (2.7-7.7); Neutrophil % 61.9 % (47-70); Platelet Count 181 K/mm3 (150-450); RBC Distribution Width CV 14.6 % (11.6-14.6); RBC Distribution Width SD 48.8 fl (35.1-43.9); Red Blood Count 2.43 M/mm3 (4.6-6.2)
[2024-08-10 06:05] LABS: International Normalized Ratio 1.4; Prothrombin Time (Protime)PT. 17.7 SECONDS (11.7-14.9)
[2024-08-10 06:23] LABS: Anion Gap 4 (5-15); BUN 31 mg/dL (7-18); BUN/Creat Ratio 25.6 RATIO (10-20); Calcium,Total 8.1 mg/dL (8.5-10.1); Chloride 112 mmol/L (98-107); Creatinine, Serum 1.21 mg/dL (0.70-1.30); EST Glomerular Filtration Rate 63 mL/min (>60); Est Glom Filt Rate - Afr Amer 76 mL/min (>60); Estimated Creatinine Clearance 68.48 ml/min; Glucose 193 mg/dL (74-106); Magnesium 1.8 mg/dL (1.6-2.6); Phosphorus 2.8 mg/dL (2.5-4.9); Potassium 4.7 mmol/L (3.5-5.1); Sodium Level 138 mmol/L (136-145)
--- NOTE | 2024-08-10 07:41 | PCM.PN.HOSP ---
Reason for Visit Reason for Visit: Diagnoses Anemia, unspecified (08/06/24) Type 2 diabetes mellitus with diabetic polyneuropathy (08/06/24) Gastrointestinal hemorrhage, unspecified (08/06/24) Non-pressure chronic ulcer of right heel and midfoot with fat layer exposed (08/06/24) Non-pressure chronic ulcer of other part of right foot with fat layer exposed (08/06/24) Subjective Subjective Patient INR 1.4. Patient heparin had apparently not been started following his endoscopic evaluation did start heparin whilst waiting for for his INR to be in the therapeutic range of 2.5-3.5 Objective Data Objective Data Vital Signs: Vital Signs Temp Pulse Resp BP Pulse Ox O2 Del Method 97.5 F L 73 18 107/55 L 97 Room Air 08/10/24 02:53 08/10/24 02:53 08/10/24 02:53 08/10/24 02:53 08/10/24 02:53 08/10/24 03:21 Oxygen Delivery Method Room Air Weight: 103.2 kg Body Mass Index (BMI) 31.7 Intake & Output: Intake and Output for Last 24 Hours 08/08/24 08/09/24 08/10/24 23:59 23:59 23:59 Intake Total 920 / 1280 1310 / 1310 110 / 110 Output Total 1000 / 1200 1350 / 1925 675 / 675 Balance -80 / 80 -40 / -615 -565 / -565 Lab / Micro Data 08/10/24 05:10 08/10/24 05:10 Labs: Laboratory Results - last 24 hr 08/09/24 08:39: POC Glucose 145 H 08/09/24 11:18: POC Glucose 190 H 08/09/24 12:30: Hgb 7.6 L, Hct 23.7 L 08/09/24 16:26: POC Glucose 152 H 08/09/24 21:01: POC Glucose 160 H 08/10/24 05:10: WBC 4.0 L, RBC 2.43 L, Hgb 7.4 L, Hct 22.5 L, MCV 92.6, MCH 30.5, MCHC 32.9, RDW Std Deviation 48.8 H, RDW Coeff of Estrada 14.6, Plt Count 181, MPV 10.1, Immature Gran % (Auto) 0.500, Neut % (Auto) 61.9, Lymph % (Auto) 23.8, [place] % (Auto) 10.9 H, Eos % (Auto) 2.7, Baso % (Auto) 0.2, Absolute Neuts (auto) 2.5, Absolute Lymphs (auto) 0.96, Nucleated RBC % 0, PT 17.7 H, INR 1.4, Sodium 138, Potassium 4.7, Chloride 112 H, Carbon Dioxide 22.0, Anion Gap 4 L, BUN 31 H, Creatinine 1.21, Estim Creat Clear Calc 68.48, Est GFR (MDRD) Af Amer 76, Est GFR (MDRD) Non-Af 63, BUN/Creatinine Ratio 25.6 H, Glucose 193 H, Calcium 8.1 L, Phosphorus 2.8, Magnesium 1.8 Micro: Microbiology 08/06/24 09:45 Stool Stool Occult Blood (CAMELIA) - Final Physical Exam Narrative GENERAL: cooperative HEENT: Atraumatic; normocephalic EYES; Anicteric, Normal Conjunctiva NECK; supple, normal thyroid, RESPIRATORY: Diminished to auscultation CARDIOVASCULAR: Regular S1 S2,, systolic click GI: soft, normoactive bowel sounds, : No Renal angle tenderness; EXTREMITIES: Right heel ulcer and surgical dressing MUSCULOSKELETAL: no muscle wasting NEURO: Awake; no lateralizing signs. SKIN: No Rash PSYCH; Flat affect Assessment & Plan Assessment/Plan (1) Acute GI bleeding: (2) Anemia: PLAN: Plan Patient is 73-year-old gentleman being admitted for GI bleed for last 2 days with severe anemia 1. Severe anemia, - acute on chronic anemia due to GI blood loss: Patient is being admitted to PCU. H&H 6.5/21%. Platelet count 151 K. 2 units of PRBCs ordered. Patient had 1 L of IV normal saline bolus in ED and does not need further as he has significant heart failure and multiple cardiac comorbidity. Monitored H&H every 6 hourly after PRBC transfusion. Lasix 20 mg IV as needed between 2 transfusion for fluid overload. Pantoprazole 40 mg IV every 12 hourly. GI is consulted. Clear liquids. Plan for EGD tomorrow a.m. hold antiplatelet or 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 agent, aspirin Plavix and morphine. Patient baseline hemoglobin is around 8 g%. CT abdomen pelvis CTA does not show any acute abnormality. EGD on 08/07/2024 Impressions : - Normal esophagus. - Medium-sized hiatal hernia. - Chronic duodenitis. Biopsied. 08/08: Plan for colonoscopy today. Colonoscopy on 08/08/2024 - Preparation of the colon was fair. - Diverticulosis in the recto-sigmoid colon, in the sigmoid colon and in the descending colon. - Stool in the rectum, in the recto-sigmoid colon, in the transverse colon, in the ascending colon and in the cecum. - A single bleeding colonic angiodysplastic lesion. Treated with a heater probe. Clip was placed. 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 - The examined portion of the ileum was normal. - No specimens collected. Recommendations : - Repeat colonoscopy in 1 year for surveillance. ? 08/10/2024; H&H remained stable 2. Anemia ? Secondary to combination of acute blood loss anemia as well as anemia of chronic disorder. Patient has been transfused with 2 unit PRBC so far. Monitoring H&H and transfuse if patient becomes symptomatic or hemoglobin falls below 7 3. Chronic congestive heart failure with reduced ejection fraction ? Echo from October 2022 demonstrated EF of 40 to 45%. Patient remains euvolemic 4. Coronary artery disease ? With previous CABG patient is on dual antiplatelet therapy with aspirin and Plavix held given his presentation 5. 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 Patient is on warfarin held on admission placed on heparin. Patient warfarin started on 08/09/2024 with INR goal of 2.5-3.5 ? 08/10/2024Patient INR 1.4. Patient heparin had apparently not been started following his endoscopic evaluation did start heparin whilst waiting for for his INR to be in the therapeutic range of 2.5-3.5 6. Restrictive lung disease ? Patient last PFT in October 2022 showed moderately severe restrictive ventilatory defect with symmetric reduction in DLCO. Some stigmata of concomitant small liver disease, less consistent with COPD. 7. History of DVT ? Patient was on warfarin with plans to resume statin 08/09/2024 8. Right heel ulcer ? Wound care nurse consulted 9. Diabetes mellitus type II -. Placed on long acting insulin, Accu-Cheks a.c. and at bedtime and covered with sliding scale insulin 10. 5. Peripheral arterial disease ? With history of femoropopliteal bypass patient antiplatelet therapy held given above plan is to resume on discharge 11. DVT prophylaxis ? Patient is on heparin Time spent in the patient's overall evaluation,decision-making process, review of diagnostic data, adjustment of management, discussion with other providers, nursing nursing and ancillary staff involved in patient's care documentation, 40 Minutes Charges/Coding Visit Charges Inpatient E&M: 83470 [facility] Hosp L2
[2024-08-10 08:09] VITALS: BP 113/53; PULSE 65; RESP 14; TEMP 37.1; O2SAT 97
[2024-08-10] MEDS: Juven (unflavored) Packet 1 PACKET PO ×2 (08:13→16:45)
[2024-08-10] MEDS: DOXEPIN HCL 50 MG CAPSULE PO (08:14)
[2024-08-10] MEDS: Ferrous Sulfate 325 MG Tablet PO (08:14)
[2024-08-10] MEDS: Furosemide 40 MG Tablet PO (08:14)
[2024-08-10] MEDS: Cholecalciferol (VIT D3) 25 MCG TABLET (1,000 UNITS) PO (08:15)
[2024-08-10] MEDS: Insulin Lispro 100 UNIT/ML INSULN.PEN SC ×7 (08:15→20:31)
[2024-08-10 08:16] VITALS: BP 113/53; PULSE 65
[2024-08-10] MEDS: Metoprolol(XL)Succ 25 MG Tablet PO (08:16)
[2024-08-10] MEDS: Pantoprazole Sodium 40 MG in 0.9% Normal Saline (100mL MB+) 100 ML 330 MG IV ×2 (08:45→20:30)
[2024-08-10] MEDS: Acetaminophen 500 MG Tablet 1000 MG PO (08:45)
[2024-08-10] MEDS: 0.9% Saline Lock 10 ML Syringe IV ×3 (08:46→20:32)
[2024-08-10] MEDS: Gabapentin 100 MG Capsule PO (08:46)
--- NOTE | 2024-08-10 11:10 | CASEMGMT ---
KALANI notified [facility] that patient is not ready today, but possibly over the weekend. Plan: d/c back to [facility] under intermediate level of care. Ashlyn ROBERTS
--- NOTE | 2024-08-10 11:28 | CASEMGMT ---
Lauren notified that pt will likely return over the weekend. Phone/fax obtained. Green sheet and transport form placed in chart. Lizabeth Church DC Planning Asst.
[2024-08-10] MEDS: HEPARIN/D5w 25,000 UNITS 25,000 UNITS/250 ML IV.SOLN. 15 UNITS CONT INF (12:07)
--- NOTE | 2024-08-10 12:51 | WOUNDNOTE ---
Dressing to the right foot is dry and intact. orders are for every other day dressing changes.
--- NOTE | 2024-08-10 13:07 | PN_ITS ---
Subjective Subjective Mr. Mathew is a 73-year-old diabetic male seen at bedside today for evaluation of the right foot full-thickness wounds. Patient is doing well. Nursing has been doing dressing changes as scheduled. No acute events overnight. He denies any pain to the right foot. Denies constitutional symptoms. No other pedal complaints at this time. Objective Data Objective Data Vital Signs: Vital Signs Temp Pulse Resp BP Pulse Ox O2 Del Method 98.7 F 65 14 113/53 L 97 Room Air 08/10/24 08:09 08/10/24 08:16 08/10/24 08:09 08/10/24 08:16 08/10/24 08:09 08/10/24 08:28 Oxygen Delivery Method Room Air Weight: 103.2 kg Body Mass Index (BMI) 31.7 Intake & Output: Intake and Output for Last 24 Hours 08/08/24 08/09/24 08/10/24 23:59 23:59 23:59 Intake Total 920 / 1280 1310 / 1310 220 / 220 Output Total 1000 / 1200 1350 / 1925 675 / 675 Balance -80 / 80 -40 / -615 -455 / -455 Lab / Micro Data 08/10/24 05:10 08/10/24 05:10 Labs: Laboratory Results - last 24 hr 08/09/24 16:26: POC Glucose 152 H 08/09/24 21:01: POC Glucose 160 H 08/10/24 05:10: WBC 4.0 L, RBC 2.43 L, Hgb 7.4 L, Hct 22.5 L, MCV 92.6, MCH 30.5, MCHC 32.9, RDW Std Deviation 48.8 H, RDW Coeff of Estrada 14.6, Plt Count 181, MPV 10.1, Immature Gran % (Auto) 0.500, Neut % (Auto) 61.9, Lymph % (Auto) 23.8, [place] % (Auto) 10.9 H, Eos % (Auto) 2.7, Baso % (Auto) 0.2, Absolute Neuts (auto) 2.5, Absolute Lymphs (auto) 0.96, Nucleated RBC % 0, PT 17.7 H, INR 1.4, Sodium 138, Potassium 4.7, Chloride 112 H, Carbon Dioxide 22.0, Anion Gap 4 L, BUN 31 H , Creatinine 1.21, Estim Creat Clear Calc 68.48, Est GFR (MDRD) Af Amer 76, Est GFR (MDRD) Non-Af 63, BUN/Creatinine Ratio 25.6 H, Glucose 193 H, Calcium 8.1 L, Phosphorus 2.8, Magnesium 1.8 08/10/24 11:13: APTT 30.0 Micro: Microbiology 08/06/24 09:45 Stool Stool Occult Blood (CAMELIA) - Final Physical Exam Narrative Neurovascular status unchanged. Nonpitting edema appreciated to the proximal aspect of the right lower extremity dressing. No pain on palpation to the heel or to the TMA site at the level of the full-thickness wounds. No pain with calf compression to right lower extremity. Const alert, oriented x3 and no apparent distress General Appearance: cooperative Orientation / Consciousness: awake Assessment & Plan Assessment/Plan (1) Non-pressure chronic ulcer of right heel and midfoot with fat layer exposed: PLAN: Patient was examined and evaluated. All findings were discussed with the patient. All questions were answered to the patient satisfaction. No debridement was done at this time. Right lower extremity dressing was clean dry and intact. Continue dressing change orders. No plan for surgical intervention on this visit. Medicine: On board, medical management Gastroenterology: On board, EGD DOS: 08/07/2024 ,Colonoscopy DOS: 08/08/2024 From a podiatry perspective patient cleared to discharge back to SNF when medically cleared. Patient will follow-up with the wound care center next Tuesday if able or I will see the patient in the hospital if he is still present. Please reach out to Dr. Lyons with any questions or concerns. Podiatry will follow from a distance while the patient is in hospital. (2) Non-pressure chronic ulcer of other part of right foot with fat layer exposed:
[2024-08-10 16:40] VITALS: BP 113/46; PULSE 71; RESP 14; TEMP 37; O2SAT 98
--- NOTE | 2024-08-10 17:34 | EX.PCM.PN.GI ---
Objective Data Objective Data Vital Signs: Vital Signs Temp Pulse Resp BP Pulse Ox O2 Del Method 98.6 F 71 14 113/46 L 98 Room Air 08/10/24 16:40 08/10/24 16:40 08/10/24 16:40 08/10/24 16:40 08/10/24 16:40 08/10/24 16:40 Oxygen Delivery Method Room Air Weight: 227 lb 8.273 oz Body Mass Index (BMI) 31.7 Intake & Output: Intake and Output for Last 24 Hours 08/08/24 08/09/24 08/10/24 23:59 23:59 23:59 Intake Total 920 / 1280 1310 / 1310 870 / 870 Output Total 1000 / 1200 1350 / 1925 1425 / 1425 Balance -80 / 80 -40 / -615 -555 / -555 Lab / Micro Data 08/10/24 05:10 08/10/24 05:10 Labs: Laboratory Results - last 24 hr 08/09/24 21:01: POC Glucose 160 H 08/10/24 05:10: WBC 4.0 L, RBC 2.43 L, Hgb 7.4 L, Hct 22.5 L, MCV 92.6, MCH 30.5, MCHC 32.9, RDW Std Deviation 48.8 H, RDW Coeff of Estrada 14.6, Plt Count 181, MPV 10.1, Immature Gran % (Auto) 0.500, Neut % (Auto) 61.9, Lymph % (Auto) 23.8, [place] % (Auto) 10.9 H, Eos % (Auto) 2.7, Baso % (Auto) 0.2, Absolute Neuts (auto) 2.5, Absolute Lymphs (auto) 0.96, Nucleated RBC % 0, PT 17.7 H, INR 1.4, Sodium 138, Potassium 4.7, Chloride 112 H, Carbon Dioxide 22.0, Anion Gap 4 L, BUN 31 H, Creatinine 1.21, Estim Creat Clear Calc 68.48, Est GFR (MDRD) Af Amer 76, Est GFR (MDRD) Non-Af 63, BUN/Creatinine Ratio 25.6 H, Glucose 193 H, Calcium 8.1 L, Phosphorus 2.8, Magnesium 1.8 08/10/24 11:13: APTT 30.0 Micro: Microbiology 08/06/24 09:45 Stool Stool Occult Blood (CAMELIA) - Final Assessment & Plan Assessment/Plan (1) Acute GI bleeding: (2) Anemia: PLAN: Plan Patient is 73-year-old gentleman being admitted for GI bleed for last 2 days with severe anemia The differential diagnosis for his severe anemia, acute on chronic anemia does include GI blood loss. He will undergo an upper endoscopy to evaluate his upper GI tract. Depending on what the upper GI tract endoscopy shows he may need a colonoscopy plus minus a capsule endoscopy. He had a CT angiography did not show any signs of active bleeding.:%. Platelet count 151 K. 2 units of PRBCs ordered. Plan for EGD tomorrow a.m. hold antiplatelet or 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 agent, aspirin Plavix and morphine. Patient baseline hemoglobin is around 8 g%. CT abdomen pelvis CTA does not show any acute abnormality. 08/08/2024-plan is for colonoscopy today to evaluate lower GI bleeding source. Patient was explained alternatives including not withstanding bleeding, infection, sepsis, perforation, need emergent urgent . He will have an ASA of 3. Patient underwent colonoscopy yesterday. In the site of GI bleeding was found. Findings: The perianal and digital rectal examinations were normal. A few small-mouthed diverticula were found in the recto-sigmoid colon, sigmoid colon and descending colon. Stool was found in the rectum, in the recto-sigmoid colon, in the transverse colon, in the ascending colon and in the cecum, making visualization difficult. Lavage of the area was performed using copious amounts of sterile water, resulting in clearance with fair visualization. A single large localized angiodysplastic lesion with bleeding was found in the cecum. Coagulation for hemostasis using heater probe was successful. To prevent bleeding post-maneuver, one hemostatic clip was successfully placed. Clip account service associate: [employer]. There was no bleeding at the end of the procedure. The terminal ileum appeared normal. Impression: - Preparation of the colon was fair. - Diverticulosis in the recto-sigmoid colon, in the sigmoid colon and in the descending colon. - Stool in the rectum, in the recto-sigmoid colon, in the transverse colon, in the ascending colon and in the cecum. - A single bleeding colonic angiodysplastic lesion. Treated with a heater probe. Clip was placed. Clip account service associate: [employer]. - The examined portion of the ileum was normal. - No specimens collected. Recommendation: - Return patient to hospital [facility] for ongoing care. - Resume previous diet. - Continue present medications. - Repeat colonoscopy in 1 year for surveillance. Charges/Coding Visit Charges Inpatient E&M: 05557 [facility] Hosp L3
[2024-08-10 17:54] LABS: Bedside Glucose 194 mg/dL (74-106)
[2024-08-10 17:55] LABS: Bedside Glucose 138 mg/dL (74-106)
[2024-08-10 17:55] LABS: Bedside Glucose 157 mg/dL (74-106)
[2024-08-10 18:32] LABS: Partial Thromboplast Time 117.4 Seconds (24.1-36.2)
[2024-08-10] MEDS: Mirtazapine 15 MG Tablet 7.5 MG PO (20:30)
[2024-08-10] MEDS: Atorvastatin Calcium 40 MG Tablet PO (20:30)
[2024-08-10] MEDS: Gabapentin 300 MG Capsule PO (20:30)
[2024-08-10] MEDS: Insulin Glargine-YFGN 100 UNIT/ML Pen 12 UNIT SC (20:31)
[2024-08-10 21:20] VITALS: BP 118/46; PULSE 73; RESP 18; TEMP 36.4; O2SAT 98
[2024-08-10 21:57] LABS: Bedside Glucose 207 mg/dL (74-106)
[2024-08-11 03:00] VITALS: BP 111/50; PULSE 68; RESP 18; TEMP 36.6; O2SAT 96
[2024-08-11 03:01] LABS: Partial Thromboplast Time 85.5 Seconds (24.1-36.2)
[2024-08-11 05:13] VITALS: BMI 31.7
[2024-08-11 07:16] LABS: Absolute Lymphocyte Count 1.24 X10^3/uL (0.83-4.51); Absolute Neutrophil Count 2.9 X10^3/uL (2.0-7.7); Basophil# 0.01 X10^3/uL; Basophil% 0.2 % (0-1); Eosinophil# 0.13 X10^3/uL; Eosinophils% 2.7 % (0-5); Hematocrit 23.7 % (40-54); Hemoglobin 7.4 g/dL (13.0-16.5); Lymphocyte # 1.24 X10^3/ul (0.83-4.51); Lymphocyte % 25.4 % (19-41); Mean Corp Hgb Conc 31.2 g/dL (32-36); Mean Corpuscular Volume 92.9 fL (80-94); Mean Platelet Vol. 10.2 fl (6.2-12.0); Monocyte# 0.53 X10^3/uL; Monocyte% 10.8 % (0-10); NRBC Flagged by Analyzer 0 % (0-5); Neutrophil # 2.93 X10^3/uL (2.7-7.7); Neutrophil % 59.9 % (47-70); Platelet Count 197 K/mm3 (150-450); RBC Distribution Width CV 14.6 % (11.6-14.6); RBC Distribution Width SD 49.3 fl (35.1-43.9); Red Blood Count 2.55 M/mm3 (4.6-6.2); White Blood Count 4.9 K/mm3 (4.4-11.0)
[2024-08-11 07:24] LABS: International Normalized Ratio 1.4; Prothrombin Time (Protime)PT. 17.1 SECONDS (11.7-14.9)
--- NOTE | 2024-08-11 08:05 | PCM.PN.HOSP ---
Reason for Visit Reason for Visit: Diagnoses Anemia, unspecified (08/06/24) Type 2 diabetes mellitus with diabetic polyneuropathy (08/06/24) Gastrointestinal hemorrhage, unspecified (08/06/24) Non-pressure chronic ulcer of right heel and midfoot with fat layer exposed (08/06/24) Non-pressure chronic ulcer of other part of right foot with fat layer exposed (08/06/24) Subjective Subjective Patient seen had a relatively uneventful night. Patient INR still low at 1.4 Objective Data Objective Data Vital Signs: Vital Signs Temp Pulse Resp BP Pulse Ox O2 Del Method 97.8 F 68 18 111/50 L 96 Room Air 08/11/24 03:00 08/11/24 03:00 08/11/24 03:00 08/11/24 03:00 08/11/24 03:00 08/11/24 03:00 Oxygen Delivery Method Room Air Weight: 103.2 kg Body Mass Index (BMI) 31.7 Intake & Output: Intake and Output for Last 24 Hours 08/09/24 08/10/24 08/11/24 23:59 23:59 23:59 Intake Total 1310 / 1310 1877.5 / 1877.5 79.4 / 79.4 Output Total 1350 / 1925 2275 / 2675 800 / 800 Balance -40 / -615 -397.5 / -797.5 -720.6 / -720.6 Lab / Micro Data 08/11/24 06:53 08/10/24 05:10 Labs: Laboratory Results - last 24 hr 08/10/24 08:07: POC Glucose 157 H 08/10/24 11:13: APTT 30.0 08/10/24 12:02: POC Glucose 138 H 08/10/24 16:36: POC Glucose 194 H 08/10/24 18:03: APTT 117.4 H* 08/10/24 20:28: POC Glucose 207 H 08/11/24 02:43: APTT 85.5 H 08/11/24 06:53: WBC 4.9, RBC 2.55 L, Hgb 7.4 L, Hct 23.7 L, MCV 92.9, MCH 29.0, MCHC 31.2 L D, RDW Std Deviation 49.3 H, RDW Coeff of Estrada 14.6, Plt Count 197, MPV 10.2, Immature Gran % (Auto) 1.000 H, Neut % (Auto) 59.9, Lymph % (Auto) 25.4, [place] % (Auto) 10.8 H, Eos % (Auto) 2.7, Baso % (Auto) 0.2, Absolute Neuts (auto) 2.9, Absolute Lymphs (auto) 1.24, Nucleated RBC % 0, PT 17.1 H, INR 1.4 Micro: Microbiology 08/06/24 09:45 Stool Stool Occult Blood ([facility]ELIA) - Final Physical Exam Narrative GENERAL: cooperative HEENT: Atraumatic; normocephalic EYES; Anicteric, Normal Conjunctiva NECK; supple, normal thyroid, RESPIRATORY: Diminished to auscultation CARDIOVASCULAR: Regular S1 S2,, systolic click GI: soft, normoactive bowel sounds, : No Renal angle tenderness; EXTREMITIES: Right heel ulcer and surgical dressing MUSCULOSKELETAL: no muscle wasting NEURO: Awake; no lateralizing signs. SKIN: No Rash PSYCH; Flat affect Assessment & Plan Assessment/Plan (1) Acute GI bleeding: (2) Anemia: PLAN: Plan Patient is 73-year-old gentleman being admitted for GI bleed for last 2 days with severe anemia 1. Severe anemia, - acute on chronic anemia due to GI blood loss: Patient is being admitted to PCU. H&H 6.5/21%. Platelet count 151 K. 2 units of PRBCs ordered. Patient had 1 L of IV normal saline bolus in ED and does not need further as he has significant heart failure and multiple cardiac comorbidity. Monitored H&H every 6 hourly after PRBC transfusion. Lasix 20 mg IV as needed between 2 transfusion for fluid overload. Pantoprazole 40 mg IV every 12 hourly. GI is consulted. Clear liquids. Plan for EGD tomorrow a.m. hold antiplatelet or 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 agent, aspirin Plavix and morphine. Patient baseline hemoglobin is around 8 g%. CT abdomen pelvis CTA does not show any acute abnormality. EGD on 08/07/2024 Impressions : - Normal esophagus. - Medium-sized hiatal hernia. - Chronic duodenitis. Biopsied. 08/08: Plan for colonoscopy today. Colonoscopy on 08/08/2024 - Preparation of the colon was fair. - Diverticulosis in the recto-sigmoid colon, in the sigmoid colon and in the descending colon. - Stool in the rectum, in the recto-sigmoid colon, in the transverse colon, in the ascending colon and in the cecum. - A single bleeding colonic angiodysplastic lesion. Treated with a heater probe. Clip was placed. 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 - The examined portion of the ileum was normal. - No specimens collected. Recommendations : - Repeat colonoscopy in 1 year for surveillance. ? 08/10/2024; H&H remained stable 2. Anemia ? Secondary to combination of acute blood loss anemia as well as anemia of chronic disorder. Patient has been transfused with 2 unit PRBC so far. Monitoring H&H and transfuse if patient becomes symptomatic or hemoglobin falls below 7 3. Chronic congestive heart failure with reduced ejection fraction ? Echo from October 2022 demonstrated EF of 40 to 45%. Patient remains euvolemic 4. Coronary artery disease ? With previous CABG patient is on dual antiplatelet therapy with aspirin and Plavix held given his presentation 5. 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 Patient is on warfarin held on admission placed on heparin. Patient warfarin started on 08/09/2024 with INR goal of 2.5-3.5 ? 08/10/2024Patient INR 1.4. Patient heparin had apparently not been started following his endoscopic evaluation did start heparin whilst waiting for for his INR to be in the therapeutic range of 2.5-3.5 ? 08/11/2024; INR 1.4 6. Restrictive lung disease ? Patient last PFT in October 2022 showed moderately severe restrictive ventilatory defect with symmetric reduction in DLCO. Some stigmata of concomitant small liver disease, less consistent with COPD. 7. History of DVT ? Patient was on warfarin with plans to resume statin 08/09/2024 8. Right heel ulcer ? Wound care nurse consulted 9. Diabetes mellitus type II -. Placed on long acting insulin, Accu-Cheks a.c. and at bedtime and covered with sliding scale insulin 10. 5. Peripheral arterial disease ? With history of femoropopliteal bypass patient antiplatelet therapy held given above plan is to resume on discharge 11. DVT prophylaxis ? Patient is on heparin Time spent in the patient's overall evaluation,decision-making process, review of diagnostic data, adjustment of management, discussion with other providers, nursing nursing and ancillary staff involved in patient's care documentation, 35 minutes Charges/Coding Visit Charges Inpatient E&M: 79188 Subs Hosp L2
[2024-08-11] MEDS: Insulin Lispro 100 UNIT/ML INSULN.PEN SC ×8 (08:46→22:23)
[2024-08-11] MEDS: Ferrous Sulfate 325 MG Tablet PO (08:47)
[2024-08-11] MEDS: Furosemide 40 MG Tablet PO (08:47)
[2024-08-11] MEDS: Juven (unflavored) Packet 1 PACKET PO ×2 (08:47→17:10)
[2024-08-11] MEDS: HEPARIN/D5w 25,000 UNITS 25,000 UNITS/250 ML IV.SOLN. 11 UNITS CONT INF (08:49)
[2024-08-11 09:08] LABS: Bedside Glucose 162 mg/dL (74-106)
[2024-08-11 09:34] LABS: Anion Gap 5 (5-15); BUN 39 mg/dL (7-18); BUN/Creat Ratio 32.2 RATIO (10-20); Calcium,Total 8.6 mg/dL (8.5-10.1); Chloride 113 mmol/L (98-107); Creatinine, Serum 1.21 mg/dL (0.70-1.30); EST Glomerular Filtration Rate 63 mL/min (>60); Est Glom Filt Rate - Afr Amer 76 mL/min (>60); Estimated Creatinine Clearance 68.48 ml/min; Glucose 156 mg/dL (74-106); Potassium 4.5 mmol/L (3.5-5.1); Sodium Level 141 mmol/L (136-145)
[2024-08-11 10:30] LABS: Partial Thromboplast Time 77.7 Seconds (24.1-36.2)
[2024-08-11 10:50] VITALS: BP 121/48; PULSE 72; RESP 18; TEMP 36.7; O2SAT 99
[2024-08-11] MEDS: Pantoprazole Sodium 40 MG in 0.9% Normal Saline (100mL MB+) 100 ML 330 MG IV ×2 (10:53→22:22)
[2024-08-11] MEDS: 0.9% Saline Lock 10 ML Syringe IV ×2 (10:54→22:22)
[2024-08-11 10:55] VITALS: PULSE 72
[2024-08-11] MEDS: Metoprolol(XL)Succ 25 MG Tablet PO (10:55)
[2024-08-11] MEDS: DOXEPIN HCL 50 MG CAPSULE PO (10:55)
[2024-08-11] MEDS: Cholecalciferol (VIT D3) 25 MCG TABLET (1,000 UNITS) PO (10:56)
[2024-08-11] MEDS: Gabapentin 100 MG Capsule PO (11:06)
[2024-08-11 13:09] LABS: Bedside Glucose 199 mg/dL (74-106)
[2024-08-11] MEDS: Collagenase 30gm Tube 1 APPLIC TOPICAL (14:56)
[2024-08-11 15:11] LABS: Partial Thromboplast Time 66.5 Seconds (24.1-36.2)
[2024-08-11 17:15] VITALS: BP 176/58; PULSE 87; RESP 18; TEMP 36.6; O2SAT 98
[2024-08-11 17:39] LABS: Bedside Glucose 187 mg/dL (74-106)
[2024-08-11 18:30] VITALS: BP 136/56
[2024-08-11] MEDS: Atorvastatin Calcium 40 MG Tablet PO (22:22)
[2024-08-11] MEDS: Mirtazapine 15 MG Tablet 7.5 MG PO (22:22)
[2024-08-11] MEDS: Insulin Glargine-YFGN 100 UNIT/ML Pen 12 UNIT SC (22:23)
[2024-08-11] MEDS: Gabapentin 300 MG Capsule PO (22:23)
[2024-08-11] MEDS: Acetaminophen 500 MG Tablet 1000 MG PO (22:36)
[2024-08-11 23:15] VITALS: BP 125/53; PULSE 69; RESP 16; TEMP 36.6; O2SAT 99
[2024-08-11 23:40] LABS: Bedside Glucose 240 mg/dL (74-106)
[2024-08-12 05:04] VITALS: BP 129/55; PULSE 65; RESP 16; TEMP 36.5; O2SAT 99
[2024-08-12 05:42] VITALS: BMI 30.8
[2024-08-12 06:30] LABS: Absolute Neutrophil Count 2.2 X10^3/uL (2.0-7.7); Basophil# 0.02 X10^3/uL; Basophil% 0.5 % (0-1); Eosinophil# 0.15 X10^3/uL; Eosinophils% 3.6 % (0-5); Hematocrit 24.3 % (40-54); Hemoglobin 7.7 g/dL (13.0-16.5); Lymphocyte % 30.8 % (19-41); Mean Corp Hgb Conc 31.7 g/dL (32-36); Mean Corpuscular Hgb 29.6 pg (27.0-32.0); Mean Corpuscular Volume 93.5 fL (80-94); Mean Platelet Vol. 10.2 fl (6.2-12.0); Monocyte# 0.53 X10^3/uL; Monocyte% 12.6 % (0-10); NRBC Flagged by Analyzer 0 % (0-5); Neutrophil # 2.18 X10^3/uL (2.7-7.7); Neutrophil % 51.6 % (47-70); Platelet Count 208 K/mm3 (150-450); RBC Distribution Width CV 14.7 % (11.6-14.6); RBC Distribution Width SD 50.2 fl (35.1-43.9); White Blood Count 4.2 K/mm3 (4.4-11.0)
[2024-08-12 06:52] LABS: Partial Thromboplast Time 78.1 Seconds (24.1-36.2)
[2024-08-12 07:07] LABS: International Normalized Ratio 1.5; Prothrombin Time (Protime)PT. 18.2 SECONDS (11.7-14.9)
--- NOTE | 2024-08-12 07:16 | PCM.PN.HOSP ---
Reason for Visit Reason for Visit: Diagnoses Anemia, unspecified (08/06/24) Type 2 diabetes mellitus with diabetic polyneuropathy (08/06/24) Gastrointestinal hemorrhage, unspecified (08/06/24) Non-pressure chronic ulcer of right heel and midfoot with fat layer exposed (08/06/24) Non-pressure chronic ulcer of other part of right foot with fat layer exposed (08/06/24) Subjective Subjective Patient INR up to 1.5 Objective Data Objective Data Vital Signs: Vital Signs Temp Pulse Resp BP Pulse Ox O2 Del Method 97.7 F L 65 16 129/55 H 99 Room Air 08/12/24 05:04 08/12/24 05:04 08/12/24 05:04 08/12/24 05:04 08/12/24 05:04 08/12/24 05:04 Oxygen Delivery Method Room Air Weight: 100.3 kg Body Mass Index (BMI) 30.8 Intake & Output: Intake and Output for Last 24 Hours 08/10/24 08/11/24 08/12/24 23:59 23:59 23:59 Intake Total 1877.5 / 1877.5 1680.82 / 1680.82 Output Total 2275 / 2675 2900 / 2900 350 / 350 Balance -397.5 / -797.5 -1219.18 / -1219.18 -350 / -350 Lab / Micro Data 08/12/24 06:09 08/12/24 06:09 Labs: Laboratory Results - last 24 hr 08/11/24 06:53: WBC 4.9, RBC 2.55 L, Hgb 7.4 L, Hct 23.7 L, MCV 92.9, MCH 29.0, MCHC 31.2 L D, RDW Std Deviation 49.3 H, RDW Coeff of Estrada 14.6, Plt Count 197, MPV 10.2, Immature Gran % (Auto) 1.000 H, Neut % (Auto) 59.9, Lymph % (Auto) 25.4, [place] % (Auto) 10.8 H, Eos % (Auto) 2.7, Baso % (Auto) 0.2, Absolute Neuts (auto) 2.9, Absolute Lymphs (auto) 1.24, Nucleated RBC % 0, PT 17.1 H, INR 1.4, Sodium 141, Potassium 4.5, Chloride 113 H, Carbon Dioxide 23.0, Anion Gap 5, BUN 39 H, Creatinine 1.21, Estim Creat Clear Calc 68.48, Est GFR (MDRD) Af Amer 76, Est GFR (MDRD) Non-Af 63, BUN/Creatinine Ratio 32.2 H, Glucose 156 H, Calcium 8.6 08/11/24 08:45: POC Glucose 162 H 08/11/24 09:25: APTT 77.7 H 08/11/24 12:49: POC Glucose 199 H 08/11/24 14:55: APTT 66.5 H 08/11/24 17:08: POC Glucose 187 H 08/11/24 21:48: POC Glucose 240 H 08/12/24 06:09: WBC 4.2 L, RBC 2.60 L, Hgb 7.7 L, Hct 24.3 L, MCV 93.5, MCH 29.6, MCHC 31.7 L, RDW Std Deviation 50.2 H, RDW Coeff of Estrada 14.7 H, Plt Count 208, MPV 10.2, Immature Gran % (Auto) 0.900, Neut % (Auto) 51.6, Lymph % (Auto) 30.8, [place] % (Auto) 12.6 H, Eos % (Auto) 3.6, Baso % (Auto) 0.5, Absolute Neuts (auto) 2.2, Absolute Lymphs (auto) 1.30, Nucleated RBC % 0, PT 18.2 H, INR 1.5, APTT 78.1 H Micro: Microbiology 08/06/24 09:45 Stool Stool Occult Blood ([facility]EL[facility]) - Final Physical Exam Narrative GENERAL: cooperative HEENT: Atraumatic; normocephalic EYES; Anicteric, Normal Conjunctiva NECK; supple, normal thyroid, RESPIRATORY: Diminished to auscultation CARDIOVASCULAR: Regular S1 S2,, systolic click GI: soft, normoactive bowel sounds, : No Renal angle tenderness; EXTREMITIES: Right heel ulcer and surgical dressing MUSCULOSKELETAL: no muscle wasting NEURO: Awake; no lateralizing signs. SKIN: No Rash PSYCH; Flat affect Assessment & Plan Assessment/Plan (1) Acute GI bleeding: (2) Anemia: PLAN: Plan Patient is 73-year-old gentleman being admitted for GI bleed for last 2 days with severe anemia 1. Severe anemia, - acute on chronic anemia due to GI blood loss: Patient is being admitted to PCU. H&H 6.5/21%. Platelet count 151 K. 2 units of PRBCs ordered. Patient had 1 L of IV normal saline bolus in ED and does not need further as he has significant heart failure and multiple cardiac comorbidity. Monitored H&H every 6 hourly after PRBC transfusion. Lasix 20 mg IV as needed between 2 transfusion for fluid overload. Pantoprazole 40 mg IV every 12 hourly. GI is consulted. Clear liquids. Plan for EGD tomorrow a.m. hold antiplatelet or 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 agent, aspirin Plavix and morphine. Patient baseline hemoglobin is around 8 g%. CT abdomen pelvis CTA does not show any acute abnormality. EGD on 08/07/2024 Impressions : - Normal esophagus. - Medium-sized hiatal hernia. - Chronic duodenitis. Biopsied. 08/08: Plan for colonoscopy today. Colonoscopy on 08/08/2024 - Preparation of the colon was fair. - Diverticulosis in the recto-sigmoid colon, in the sigmoid colon and in the descending colon. - Stool in the rectum, in the recto-sigmoid colon, in the transverse colon, in the ascending colon and in the cecum. - A single bleeding colonic angiodysplastic lesion. Treated with a heater probe. Clip was placed. 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 - The examined portion of the ileum was normal. - No specimens collected. Recommendations : - Repeat colonoscopy in 1 year for surveillance. ? 08/10/2024; H&H remained stable ? 08/12/2025. Hemoglobin 7.7 2. Cronic congestive heart failure with reduced ejection fraction ? Echo from October 2022 demonstrated EF of 40 to 45%. Patient remains euvolemic 3. 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 Patient is on warfarin held on admission placed on heparin. Patient warfarin started on 08/09/2024 with INR goal of 2.5-3.5 ? 08/10/2024Patient INR 1.4. Patient heparin had apparently not been started following his endoscopic evaluation did start heparin whilst waiting for for his INR to be in the therapeutic range of 2.5-3.5 ? 08/11/2024; INR 1.4 4. Coronary artery disease ? With previous CABG patient is on dual antiplatelet therapy with aspirin and Plavix held given his presentation 5. Restrictive lung disease ? Patient last PFT in October 2022 showed moderately severe restrictive ventilatory defect with symmetric reduction in DLCO. Some stigmata of concomitant small liver disease, less consistent with COPD. 6. History of DVT ? Patient was on warfarin with plans to resume statin 08/09/2024 7. Right heel ulcer ? Wound care nurse consulted 8. Diabetes mellitus type II -. Placed on long acting insulin, Accu-Cheks a.c. and at bedtime and covered with sliding scale insulin 9 Peripheral arterial disease ? With history of femoropopliteal bypass patient antiplatelet therapy held given above plan is to resume on discharge 10. Physical deconditioning secondary to patient multiple comorbidities ? Requested for PT OT eval and social services aide to assist with discharge planning 11. DVT prophylaxis ? Patient is on heparin Time spent in the patient's overall evaluation,decision-making process, review of diagnostic data, adjustment of management, discussion with other providers, nursing nursing and ancillary staff involved in patient's care documentation, 35 minutes Charges/Coding Visit Charges Inpatient E&M: 95416 Subs Hosp L2
[2024-08-12 07:48] LABS: Anion Gap 3 (5-15); BUN 43 mg/dL (7-18); BUN/Creat Ratio 35.2 RATIO (10-20); Calcium,Total 8.7 mg/dL (8.5-10.1); Chloride 109 mmol/L (98-107); Creatinine, Serum 1.22 mg/dL (0.70-1.30); EST Glomerular Filtration Rate 62 mL/min (>60); Est Glom Filt Rate - Afr Amer 75 mL/min (>60); Glucose 165 mg/dL (74-106); Potassium 4.1 mmol/L (3.5-5.1); Sodium Level 138 mmol/L (136-145)
[2024-08-12] MEDS: HEPARIN/D5w 25,000 UNITS 25,000 UNITS/250 ML IV.SOLN. 11 UNITS CONT INF (09:24)
[2024-08-12] MEDS: Insulin Lispro 100 UNIT/ML INSULN.PEN SC ×7 (09:25→21:54)
[2024-08-12] MEDS: Juven (unflavored) Packet 1 PACKET PO ×2 (09:26→16:54)
[2024-08-12] MEDS: Ferrous Sulfate 325 MG Tablet PO (09:26)
[2024-08-12] MEDS: Furosemide 40 MG Tablet PO (09:26)
[2024-08-12] MEDS: Cholecalciferol (VIT D3) 25 MCG TABLET (1,000 UNITS) PO (09:27)
[2024-08-12] MEDS: DOXEPIN HCL 50 MG CAPSULE PO (09:27)
[2024-08-12 09:29] VITALS: BP 121/55; PULSE 65
[2024-08-12] MEDS: Metoprolol(XL)Succ 25 MG Tablet PO (09:29)
[2024-08-12 10:21] LABS: Bedside Glucose 147 mg/dL (74-106)
[2024-08-12] MEDS: Pantoprazole Sodium 40 MG in 0.9% Normal Saline (100mL MB+) 100 ML 330 MG IV ×2 (10:50→21:54)
[2024-08-12] MEDS: Gabapentin 100 MG Capsule PO (10:50)
--- NOTE | 2024-08-12 11:47 | PN_ITS ---
Subjective Subjective Mr. Coronel is a 59-year-old diabetic male seen at bedside today for follow-up evaluation of full-thickness wound to the right foot. Patient is doing well. No acute events overnight. He states that he is most likely getting out of here sometime next week and may miss his wound care appointment on Tuesday. He is getting dressing changes by nursing staff. Doing well. Denies constitutional symptoms. No trauma. No other pedal complaints at this time. Objective Data Objective Data Vital Signs: Vital Signs Temp Pulse Resp BP Pulse Ox O2 Del Method 97.7 F L 65 16 121/55 H 99 Room Air 08/12/24 05:04 08/12/24 09:29 08/12/24 05:04 08/12/24 09:29 08/12/24 05:04 08/12/24 07:50 Oxygen Delivery Method Room Air Weight: 100.3 kg Body Mass Index (BMI) 30.8 Intake & Output: Intake and Output for Last 24 Hours 08/10/24 08/11/24 08/12/24 23:59 23:59 23:59 Intake Total 1877.5 / 1877.5 1680.82 / 1680.82 250 / 250 Output Total 2275 / 2675 2900 / 2900 350 / 350 Balance -397.5 / -797.5 -1219.18 / -1219.18 -100 / -100 Lab / Micro Data 08/12/24 06:09 08/12/24 06:09 Labs: Laboratory Results - last 24 hr 08/11/24 12:49: POC Glucose 199 H 08/11/24 14:55: APTT 66.5 H 08/11/24 17:08: POC Glucose 187 H 08/11/24 21:48: POC Glucose 240 H 08/12/24 06:09: WBC 4.2 L, RBC 2.60 L, Hgb 7.7 L, Hct 24.3 L, MCV 93.5, MCH 29.6, MCHC 31.7 L, RDW Std Deviation 50.2 H, RDW Coeff of Estrada 14.7 H, Plt Count 208, MPV 10.2, Immature Gran % (Auto) 0.900, Neut % (Auto) 51.6, Lymph % (Auto) 30.8, [place] % (Auto) 12.6 H, Eos % (Auto) 3.6, Baso % (Auto) 0.5, Absolute Neuts (auto) 2.2, Absolute Lymphs (auto) 1.30, Nucleated RBC % 0, PT 18.2 H, INR 1.5, APTT 78.1 H, Sodium 138, Potassium 4.1, Chloride 109 H, Carbon Dioxide 26.0, A nion Gap 3 L, BUN 43 H, Creatinine 1.22, Estim Creat Clear Calc 67.00, Est GFR (MDRD) Af Amer 75, Est GFR (MDRD) Non-Af 62, BUN/Creatinine Ratio 35.2 H, G lucose 165 H, Calcium 8.7 08/12/24 07:48: POC Glucose 147 H Micro: Microbiology 08/06/24 09:45 Stool Stool Occult Blood ([facility]EL[facility]) - Final Physical Exam Narrative Neurovascular status unchanged. Nonpitting edema appreciated to the proximal aspect of the right lower extremity dressing. No pain on palpation to the heel or to the TMA site at the level of the full-thickness wounds. No pain with calf compression to right lower extremity. Const alert, oriented x3 and no apparent distress General Appearance: cooperative Orientation / Consciousness: awake Assessment & Plan Assessment/Plan (1) Non-pressure chronic ulcer of right heel and midfoot with fat layer exposed: PLAN: Patient was examined and evaluated. All findings were discussed with the patient. All questions were answered to the patient satisfaction. Continue dressing changes per order by wound care nurse and or nursing staff. No plan for surgical intervention on this visit. Medicine: On board, medical management Gastroenterology: On board, EGD DOS: 08/07/2024 ,Colonoscopy DOS: 08/08/2024 Patient is cleared from a podiatry perspective to discharge back to SNF when medically cleared by medicine and gastroenterology. Podiatry to sign off and follow from a distance. Please reach out to Dr. Lyons with any questions or concerns. Patient is to follow-up at the wound care center next Tuesday if discharged before. (2) Non-pressure chronic ulcer of other part of right foot with fat layer exposed:
[2024-08-12 12:02] VITALS: BP 128/40; PULSE 64; RESP 16; TEMP 36.6; O2SAT 100
[2024-08-12 12:24] LABS: Bedside Glucose 166 mg/dL (74-106)
[2024-08-12 16:55] VITALS: BP 148/53; PULSE 75; RESP 18; TEMP 36.4; O2SAT 100
[2024-08-12 17:18] LABS: Bedside Glucose 219 mg/dL (74-106)
[2024-08-12 21:50] VITALS: BP 124/52; PULSE 76; RESP 16; TEMP 36.7; O2SAT 95
[2024-08-12] MEDS: Atorvastatin Calcium 40 MG Tablet PO (21:53)
[2024-08-12] MEDS: Mirtazapine 15 MG Tablet 7.5 MG PO (21:53)
[2024-08-12] MEDS: Gabapentin 300 MG Capsule PO (21:53)
[2024-08-12] MEDS: Acetaminophen 500 MG Tablet 1000 MG PO (21:53)
[2024-08-12] MEDS: Insulin Glargine-YFGN 100 UNIT/ML Pen 12 UNIT SC (21:54)
[2024-08-13 00:43] LABS: Bedside Glucose 256 mg/dL (74-106)
[2024-08-13 03:50] VITALS: BP 101/50; PULSE 63; RESP 18; TEMP 36.4; O2SAT 95
[2024-08-13 06:00] VITALS: BMI 30.4
[2024-08-13 06:18] LABS: Partial Thromboplast Time 72.2 Seconds (24.1-36.2)
--- NOTE | 2024-08-13 07:37 | PCM.PN.HOSP ---
Reason for Visit Reason for Visit: Diagnoses Anemia, unspecified (08/06/24) Type 2 diabetes mellitus with diabetic polyneuropathy (08/06/24) Gastrointestinal hemorrhage, unspecified (08/06/24) Non-pressure chronic ulcer of right heel and midfoot with fat layer exposed (08/06/24) Non-pressure chronic ulcer of other part of right foot with fat layer exposed (08/06/24) Subjective Subjective Patient hemoglobin up to 1.7 patient otherwise had a relatively uneventful event Objective Data Objective Data Vital Signs: Vital Signs Temp Pulse Resp BP Pulse Ox O2 Del Method 97.6 F L 63 18 101/50 L 95 Room Air 08/13/24 03:50 08/13/24 03:50 08/13/24 03:50 08/13/24 03:50 08/13/24 03:50 08/13/24 03:50 Oxygen Delivery Method Room Air Weight: 99.1 kg Body Mass Index (BMI) 30.4 Intake & Output: Intake and Output for Last 24 Hours 08/11/24 08/12/24 08/13/24 23:59 23:59 23:59 Intake Total 1680.82 / 1680.82 1610 / 1610 Output Total 2900 / 2900 2250 / 2750 900 / 900 Balance -1219.18 / -1219.18 -640 / -1140 -900 / -900 Lab / Micro Data 08/13/24 05:45 08/13/24 05:45 Labs: Laboratory Results - last 24 hr 08/12/24 06:09: Sodium 138, Potassium 4.1, Chloride 109 H, Carbon Dioxide 26.0, Anion Gap 3 L, BUN 43 H, Creatinine 1.22, Estim Creat Clear Calc 67.00, Est GFR (MDRD) Af Amer 75, Est GFR (MDRD) Non-Af 62, BUN/Creatinine Ratio 35.2 H, Glucose 165 H, Calcium 8.7 08/12/24 07:48: POC Glucose 147 H 08/12/24 11:58: POC Glucose 166 H 08/12/24 16:52: POC Glucose 219 H 08/12/24 21:52: POC Glucose 256 H 08/13/24 05:45: APTT 72.2 H Micro: Microbiology 08/06/24 09:45 Stool Stool Occult Blood (CAMELIA) - Final Physical Exam Narrative GENERAL: cooperative HEENT: Atraumatic; normocephalic EYES; Anicteric, Normal Conjunctiva NECK; supple, normal thyroid, RESPIRATORY: Diminished to auscultation CARDIOVASCULAR: Regular S1 S2,, systolic click GI: soft, normoactive bowel sounds, : No Renal angle tenderness; EXTREMITIES: Right heel ulcer and surgical dressing MUSCULOSKELETAL: no muscle wasting NEURO: Awake; no lateralizing signs. SKIN: No Rash PSYCH; Flat affect Assessment & Plan Assessment/Plan (1) Acute GI bleeding: (2) Anemia: PLAN: Plan Patient is 73-year-old gentleman being admitted for GI bleed for last 2 days with severe anemia 1. Severe anemia, - acute on chronic anemia due to GI blood loss: Patient is being admitted to PCU. H&H 6.5/21%. Platelet count 151 K. 2 units of PRBCs ordered. Patient had 1 L of IV normal saline bolus in ED and does not need further as he has significant heart failure and multiple cardiac comorbidity. Monitored H&H every 6 hourly after PRBC transfusion. Lasix 20 mg IV as needed between 2 transfusion for fluid overload. Pantoprazole 40 mg IV every 12 hourly. GI is consulted. Clear liquids. Plan for EGD tomorrow a.m. hold antiplatelet or 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 agent, aspirin Plavix and morphine. Patient baseline hemoglobin is around 8 g%. CT abdomen pelvis CTA does not show any acute abnormality. EGD on 08/07/2024 Impressions : - Normal esophagus. - Medium-sized hiatal hernia. - Chronic duodenitis. Biopsied. 08/08: Plan for colonoscopy today. Colonoscopy on 08/08/2024 - Preparation of the colon was fair. - Diverticulosis in the recto-sigmoid colon, in the sigmoid colon and in the descending colon. - Stool in the rectum, in the recto-sigmoid colon, in the transverse colon, in the ascending colon and in the cecum. - A single bleeding colonic angiodysplastic lesion. Treated with a heater probe. Clip was placed. 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 - The examined portion of the ileum was normal. - No specimens collected. Recommendations : - Repeat colonoscopy in 1 year for surveillance. ? 08/10/2024; H&H remained stable ? 08/12/2025. Hemoglobin 7.7 2. Cronic congestive heart failure with reduced ejection fraction ? Echo from October 2022 demonstrated EF of 40 to 45%. Patient remains euvolemic 3. 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 Patient is on warfarin held on admission placed on heparin. Patient warfarin started on 08/09/2024 with INR goal of 2.5-3.5 ? 08/10/2024Patient INR 1.4. Patient heparin had apparently not been started following his endoscopic evaluation did start heparin whilst waiting for for his INR to be in the therapeutic range of 2.5-3.5 ? 08/11/2024; INR 1.4 ? 08/13/2024; INR up to 1.7 4. Coronary artery disease ? With previous CABG patient is on dual antiplatelet therapy with aspirin and Plavix held given his presentation 5. Restrictive lung disease ? Patient last PFT in October 2022 showed moderately severe restrictive ventilatory defect with symmetric reduction in DLCO. Some stigmata of concomitant small liver disease, less consistent with COPD. 6. History of DVT ? Patient was on warfarin with plans to resume statin 08/09/2024 7. Right heel ulcer ? Wound care nurse consulted 8. Diabetes mellitus type II -. Placed on long acting insulin, Accu-Cheks a.c. and at bedtime and covered with sliding scale insulin 9 Peripheral arterial disease ? With history of femoropopliteal bypass patient antiplatelet therapy held given above plan is to resume on discharge 10. Physical deconditioning secondary to patient multiple comorbidities ? Requested for PT OT eval and social secretary to assist with discharge planning 11. DVT prophylaxis ? Patient is on heparin Time spent in the patient's overall evaluation,decision-making process, review of diagnostic data, adjustment of management, discussion with other providers, nursing nursing and ancillary staff involved in patient's care documentation, 35 minutes Charges/Coding Visit Charges Inpatient E&M: 42461 Subs Hosp L2
[2024-08-13 07:53] LABS: Absolute Lymphocyte Count 1.23 X10^3/uL (0.83-4.51); Absolute Neutrophil Count 2.2 X10^3/uL (2.0-7.7); Basophil# 0.02 X10^3/uL; Basophil% 0.5 % (0-1); Eosinophil# 0.15 X10^3/uL; Eosinophils% 3.6 % (0-5); Hematocrit 24.2 % (40-54); Hemoglobin 7.9 g/dL (13.0-16.5); Lymphocyte # 1.23 X10^3/ul (0.83-4.51); Lymphocyte % 29.6 % (19-41); Mean Corp Hgb Conc 32.6 g/dL (32-36); Mean Corpuscular Hgb 30.4 pg (27.0-32.0); Mean Corpuscular Volume 93.1 fL (80-94); Mean Platelet Vol. 10.6 fl (6.2-12.0); Monocyte# 0.51 X10^3/uL; Monocyte% 12.3 % (0-10); NRBC Flagged by Analyzer 0 % (0-5); Platelet Count 219 K/mm3 (150-450); RBC Distribution Width CV 14.7 % (11.6-14.6); RBC Distribution Width SD 49.3 fl (35.1-43.9); White Blood Count 4.2 K/mm3 (4.4-11.0)
[2024-08-13] MEDS: Collagenase 30gm Tube 1 APPLIC TOPICAL (08:03)
[2024-08-13 08:09] LABS: Anion Gap 5 (5-15); BUN 45 mg/dL (7-18); BUN/Creat Ratio 38.5 RATIO (10-20); Calcium,Total 8.6 mg/dL (8.5-10.1); Chloride 110 mmol/L (98-107); Creatinine, Serum 1.17 mg/dL (0.70-1.30); EST Glomerular Filtration Rate 65 mL/min (>60); Est Glom Filt Rate - Afr Amer 79 mL/min (>60); Estimated Creatinine Clearance 69.48 ml/min; Glucose 170 mg/dL (74-106); Magnesium 1.9 mg/dL (1.6-2.6); Phosphorus 3.6 mg/dL (2.5-4.9); Potassium 4.1 mmol/L (3.5-5.1); Sodium Level 139 mmol/L (136-145)
[2024-08-13 08:36] LABS: International Normalized Ratio 1.7; Prothrombin Time (Protime)PT. 20.6 SECONDS (11.7-14.9)
[2024-08-13] MEDS: HEPARIN/D5w 25,000 UNITS 25,000 UNITS/250 ML IV.SOLN. 11 UNITS CONT INF (08:39)
[2024-08-13 08:45] VITALS: BP 117/55; PULSE 60; RESP 18; TEMP 36.3; O2SAT 98
[2024-08-13] MEDS: Insulin Lispro 100 UNIT/ML INSULN.PEN SC ×8 (08:46→21:55)
[2024-08-13] MEDS: Furosemide 40 MG Tablet PO (08:48)
[2024-08-13 08:49] VITALS: BP 117/55; PULSE 60
[2024-08-13] MEDS: Ferrous Sulfate 325 MG Tablet PO (08:49)
[2024-08-13] MEDS: Cholecalciferol (VIT D3) 25 MCG TABLET (1,000 UNITS) PO (08:49)
[2024-08-13] MEDS: Metoprolol(XL)Succ 25 MG Tablet PO (08:49)
[2024-08-13] MEDS: Juven (unflavored) Packet 1 PACKET PO ×2 (08:49→17:01)
[2024-08-13] MEDS: DOXEPIN HCL 50 MG CAPSULE PO (08:50)
[2024-08-13] MEDS: Gabapentin 100 MG Capsule PO (08:57)
[2024-08-13] MEDS: Pantoprazole Sodium 40 MG in 0.9% Normal Saline (100mL MB+) 100 ML 330 MG IV ×2 (08:58→22:35)
--- NOTE | 2024-08-13 09:13 | WOUNDNOTE ---
wound photo: right lateral foot
--- NOTE | 2024-08-13 09:15 | WOUNDNOTE ---
wound photo: right heel
[2024-08-13 09:28] LABS: Bedside Glucose 170 mg/dL (74-106)
[2024-08-13 11:57] LABS: Bedside Glucose 168 mg/dL (74-106)
[2024-08-13 14:45] VITALS: BP 129/51; PULSE 66; RESP 18; TEMP 36.6; O2SAT 100
[2024-08-13 16:50] LABS: Bedside Glucose 150 mg/dL (74-106)
--- NOTE | 2024-08-13 18:33 | EX.PCM.PN.GI ---
Subjective Subjective Patient has not had any signs or symptoms of GI bleeding. He denies any abdominal pain. His appetite is improved. Objective Data Objective Data Vital Signs: Vital Signs Temp Pulse Resp BP Pulse Ox O2 Del Method 97.9 F 66 18 129/51 H 100 Room Air 08/13/24 14:45 08/13/24 14:45 08/13/24 14:45 08/13/24 14:45 08/13/24 14:45 08/13/24 15:12 Oxygen Delivery Method Room Air Weight: 218 lb 7.649 oz Body Mass Index (BMI) 30.4 Intake & Output: Intake and Output for Last 24 Hours 08/11/24 08/12/24 08/13/24 23:59 23:59 23:59 Intake Total 1680.82 / 1680.82 1610 / 1610 1080 / 1080 Output Total 2900 / 2900 2250 / 2750 1650 / 1650 Balance -1219.18 / -1219.18 -640 / -1140 -570 / -570 Lab / Micro Data 08/13/24 05:45 08/13/24 05:45 Labs: Laboratory Results - last 24 hr 08/12/24 21:52: POC Glucose 256 H 08/13/24 05:45: WBC 4.2 L, RBC 2.60 L, Hgb 7.9 L, Hct 24.2 L, MCV 93.1, MCH 30.4, MCHC 32.6, RDW Std Deviation 49.3 H, RDW Coeff of Estrada 14.7 H, Plt Count 219, MPV 10.6, Immature Gran % (Auto) 1.000 H, Neut % (Auto) 53.0, Lymph % (Auto) 29.6, Morris % (Auto) 12.3 H, Eos % (Auto) 3.6, Baso % (Auto) 0.5, Absolute Neuts (auto) 2.2, Absolute Lymphs (auto) 1.23, Nucleated RBC % 0, PT 20.6 H, INR 1.7, APTT 72.2 H, Sodium 139, Potassium 4.1, Chloride 110 H, Carbon Dioxide 24.0, Anion Gap 5, BUN 45 H, Creatinine 1.17, Estim Creat Clear Calc 69.48, Est GFR (MDRD) Af Amer 79, Est GFR (MDRD) Non-Af 65, BUN/Creatinine Ratio 38.5 H, Glucose 170 H, Calcium 8.6, Phosphorus 3.6, Magnesium 1.9 08/13/24 08:37: POC Glucose 170 H 08/13/24 11:37: POC Glucose 168 H 08/13/24 16:30: POC Glucose 150 H Micro: Microbiology 08/06/24 09:45 Stool Stool Occult Blood (CAMELIA) - Final Physical Exam Narrative GENERAL: cooperative HEENT: Atraumatic; normocephalic EYES; Anicteric, Normal Conjunctiva NECK; supple, normal thyroid, RESPIRATORY: Diminished to auscultation CARDIOVASCULAR: Regular S1 S2,, systolic click GI: soft, normoactive bowel sounds, : No Renal angle tenderness; EXTREMITIES: Right heel ulcer and surgical dressing MUSCULOSKELETAL: no muscle wasting NEURO: Awake; no lateralizing signs. SKIN: No Rash PSYCH; Flat affect Assessment & Plan Assessment/Plan (1) Acute GI bleeding: (2) Anemia: PLAN: Plan Patient is 73-year-old gentleman being admitted for GI bleed for last 2 days with severe anemia The differential diagnosis for his severe anemia, acute on chronic anemia does include GI blood loss. He will undergo an upper endoscopy to evaluate his upper GI tract. Depending on what the upper GI tract endoscopy shows he may need a colonoscopy plus minus a capsule endoscopy. He had a CT angiography did not show any signs of active bleeding.:%. Platelet count 151 K. 2 units of PRBCs ordered. Plan for EGD tomorrow a.m. hold antiplatelet or 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 agent, aspirin Plavix and morphine. Patient baseline hemoglobin is around 8 g%. CT abdomen pelvis CTA does not show any acute abnormality. 08/08/2024-plan is for colonoscopy today to evaluate lower GI bleeding source. Patient was explained alternatives including not withstanding bleeding, infection, sepsis, perforation, need emergent urgent . He will have an ASA of 3. Patient underwent colonoscopy yesterday. In the site of GI bleeding was found. Findings: The perianal and digital rectal examinations were normal. A few small-mouthed diverticula were found in the recto-sigmoid colon, sigmoid colon and descending colon. Stool was found in the rectum, in the recto-sigmoid colon, in the transverse colon, in the ascending colon and in the cecum, making visualization difficult. Lavage of the area was performed using copious amounts of sterile water, resulting in clearance with fair visualization. A single large localized angiodysplastic lesion with bleeding was found in the cecum. Coagulation for hemostasis using heater probe was successful. To prevent bleeding post-maneuver, one hemostatic clip was successfully placed. Clip work order clerk: Kidos. There was no bleeding at the end of the procedure. The terminal ileum appeared normal. Impression: - Preparation of the colon was fair. - Diverticulosis in the recto-sigmoid colon, in the sigmoid colon and in the descending colon. - Stool in the rectum, in the recto-sigmoid colon, in the transverse colon, in the ascending colon and in the cecum. - A single bleeding colonic angiodysplastic lesion. Treated with a heater probe. Clip was placed. Clip work order clerk: Kidos. - The examined portion of the ileum was normal. - No specimens collected. Recommendation: - Return patient to hospital [facility] for ongoing care. - Resume previous diet. - Continue present medications. - Repeat colonoscopy in 1 year for surveillance. 08/13/2024-his hemoglobin is up to 7.9. His last ferritin approximately 4 months ago was 117. I will give him 250 mg of iron IV. He is on oral iron and is back on anticoagulation. Continue to monitor hemoglobin. He will need a capsule as an outpatient. Charges/Coding Visit Charges Inpatient E&M: 06518 [facility] Hosp L3
[2024-08-13] MEDS: Sodium Ferric Gluconat/Sucrose 250 MG in 0.9% Normal Saline (250mL Bag) 250 ML 135 MG IV (20:15)
[2024-08-13 20:30] VITALS: BP 130/49; PULSE 69; RESP 18; TEMP 35.9; O2SAT 98
[2024-08-13 21:49] VITALS: BP 130/42; PULSE 67; RESP 18; TEMP 36.1; O2SAT 99
[2024-08-13] MEDS: Gabapentin 300 MG Capsule PO (21:52)
[2024-08-13] MEDS: Mirtazapine 15 MG Tablet 7.5 MG PO (21:53)
[2024-08-13] MEDS: Atorvastatin Calcium 40 MG Tablet PO (21:53)
[2024-08-13] MEDS: Insulin Glargine-YFGN 100 UNIT/ML Pen 12 UNIT SC (21:54)
[2024-08-13] MEDS: Acetaminophen 500 MG Tablet 1000 MG PO (21:58)
[2024-08-13 23:04] LABS: Bedside Glucose 227 mg/dL (74-106)
[2024-08-14] VITALS (9 sets, daily range): BP systolic 115–148; BP diastolic 37–55; PULSE 63–78; RESP 16–18; TEMP 35.9–36.8; O2SAT 96–99; BMI 30.9
[2024-08-14 06:04] LABS: Absolute Lymphocyte Count 1.22 X10^3/uL (0.83-4.51); Absolute Neutrophil Count 2.2 X10^3/uL (2.0-7.7); Basophil# 0.02 X10^3/uL; Basophil% 0.5 % (0-1); Eosinophil# 0.17 X10^3/uL; Eosinophils% 4.1 % (0-5); Hematocrit 25.2 % (40-54); Lymphocyte # 1.22 X10^3/ul (0.83-4.51); Lymphocyte % 29.3 % (19-41); Mean Corp Hgb Conc 31.7 g/dL (32-36); Mean Corpuscular Hgb 29.7 pg (27.0-32.0); Mean Corpuscular Volume 93.7 fL (80-94); Mean Platelet Vol. 10.1 fl (6.2-12.0); Monocyte# 0.57 X10^3/uL; Monocyte% 13.7 % (0-10); NRBC Flagged by Analyzer 0 % (0-5); Neutrophil # 2.16 X10^3/uL (2.7-7.7); Neutrophil % 51.7 % (47-70); Platelet Count 214 K/mm3 (150-450); RBC Distribution Width CV 14.8 % (11.6-14.6); RBC Distribution Width SD 50.8 fl (35.1-43.9); Red Blood Count 2.69 M/mm3 (4.6-6.2); White Blood Count 4.2 K/mm3 (4.4-11.0)
[2024-08-14 06:14] LABS: International Normalized Ratio 1.8; Prothrombin Time (Protime)PT. 21.1 SECONDS (11.7-14.9)
[2024-08-14 06:31] LABS: Partial Thromboplast Time 131.3 Seconds (24.1-36.2)
[2024-08-14 06:34] LABS: Anion Gap 7 (5-15); BUN 47 mg/dL (7-18); BUN/Creat Ratio 43.1 RATIO (10-20); Calcium,Total 8.6 mg/dL (8.5-10.1); Chloride 108 mmol/L (98-107); Creatinine, Serum 1.09 mg/dL (0.70-1.30); EST Glomerular Filtration Rate 71 mL/min (>60); Est Glom Filt Rate - Afr Amer 86 mL/min (>60); Estimated Creatinine Clearance 75.14 ml/min; Glucose 179 mg/dL (74-106); Magnesium 1.8 mg/dL (1.6-2.6); Phosphorus 3.2 mg/dL (2.5-4.9); Potassium 3.8 mmol/L (3.5-5.1); Sodium Level 138 mmol/L (136-145)
[2024-08-14] MEDS: Metoprolol(XL)Succ 25 MG Tablet PO (08:23)
[2024-08-14] MEDS: Juven (unflavored) Packet 1 PACKET PO ×2 (08:23→16:36)
[2024-08-14] MEDS: Furosemide 40 MG Tablet PO (08:23)
[2024-08-14] MEDS: Cholecalciferol (VIT D3) 25 MCG TABLET (1,000 UNITS) PO (08:23)
[2024-08-14] MEDS: Losartan Potassium 50 MG Tablet PO (08:24)
[2024-08-14] MEDS: Ferrous Sulfate 325 MG Tablet PO (08:24)
[2024-08-14] MEDS: Gabapentin 100 MG Capsule PO (08:24)
[2024-08-14] MEDS: DOXEPIN HCL 50 MG CAPSULE PO (08:24)
[2024-08-14] MEDS: Pantoprazole Sodium 40 MG in 0.9% Normal Saline (100mL MB+) 100 ML 330 MG IV ×2 (08:25→22:18)
[2024-08-14] MEDS: Insulin Lispro 100 UNIT/ML INSULN.PEN SC ×8 (08:25→22:13)
[2024-08-14] MEDS: HEPARIN/D5w 25,000 UNITS 25,000 UNITS/250 ML IV.SOLN. 8 UNITS CONT INF (08:38)
[2024-08-14 08:45] LABS: Bedside Glucose 152 mg/dL (74-106)
--- NOTE | 2024-08-14 09:53 | PCM.PN.HOSP ---
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 Repeat INR ordered for a.m. Objective Data Objective Data Vital Signs: Vital Signs Temp Pulse Resp BP Pulse Ox O2 Del Method 96.6 F L 69 18 133/55 H 97 Room Air 08/14/24 03:45 08/14/24 09:51 08/14/24 03:45 08/14/24 08:23 08/14/24 03:45 08/14/24 03:45 Oxygen Delivery Method Room Air Weight: 100.7 kg Body Mass Index (BMI) 30.9 Intake & Output: Intake and Output for Last 24 Hours 08/12/24 08/13/24 08/14/24 23:59 23:59 23:59 Intake Total 1610 / 1610 1700 / 1700 361.82 / 361.82 Output Total 2250 / 2750 2500 / 2500 380 / 380 Balance -640 / -1140 -800 / -800 -18.18 / -18.18 Lab / Micro Data 08/14/24 05:11 08/14/24 05:11 Labs: Laboratory Results - last 24 hr 08/13/24 11:37: POC Glucose 168 H 08/13/24 16:30: POC Glucose 150 H 08/13/24 21:51: POC Glucose 227 H 08/14/24 05:11: WBC 4.2 L, RBC 2.69 L, Hgb 8.0 L, Hct 25.2 L, MCV 93.7, MCH 29.7, MCHC 31.7 L, RDW Std Deviation 50.8 H, RDW Coeff of Estrada 14.8 H, Plt Count 214, MPV 10.1, Immature Gran % (Auto) 0.700, Neut % (Auto) 51.7, Lymph % (Auto) 29.3, [place] % (Auto) 13.7 H, Eos % (Auto) 4.1, Baso % (Auto) 0.5, Absolute Neuts (auto) 2.2, Absolute Lymphs (auto) 1.22, Nucleated RBC % 0, PT 21.1 H, INR 1.8, APTT 131.3 H*, Sodium 138, Potassium 3.8, Chloride 108 H, Carbon Dioxide 23.0, Anion Gap 7, BUN 47 H, Creatinine 1.09, Estim Creat Clear Calc 75.14, Est GFR (MDRD) Af Amer 86, Est GFR (MDRD) Non-Af 71, BUN/Creatinine Ratio 43.1 H, Glucose 179 H, Calcium 8.6, Phosphorus 3.2, Magnesium 1.8 08/14/24 08:18: POC Glucose 152 H Micro: Microbiology 08/06/24 09:45 Stool Stool Occult Blood (CAMELIA) - Final Physical Exam Narrative GENERAL: cooperative HEENT: Atraumatic; normocephalic EYES; Anicteric, Normal Conjunctiva NECK; supple, normal thyroid, RESPIRATORY: Diminished to auscultation CARDIOVASCULAR: Regular S1 S2,, systolic click GI: soft, normoactive bowel sounds, : No Renal angle tenderness; EXTREMITIES: Right heel ulcer and surgical dressing MUSCULOSKELETAL: no muscle wasting NEURO: Awake; no lateralizing signs. SKIN: No Rash PSYCH; Flat affect Assessment & Plan Assessment/Plan (1) Acute GI bleeding: (2) Anemia: PLAN: Plan Patient is 73-year-old gentleman being admitted for GI bleed for last 2 days with severe anemia 1. Severe anemia, - acute on chronic anemia due to GI blood loss: Patient is being admitted to PCU. H&H 6.5/21%. Platelet count 151 K. 2 units of PRBCs ordered. Patient had 1 L of IV normal saline bolus in ED and does not need further as he has significant heart failure and multiple cardiac comorbidity. Monitored H&H every 6 hourly after PRBC transfusion. Lasix 20 mg IV as needed between 2 transfusion for fluid overload. Pantoprazole 40 mg IV every 12 hourly. GI is consulted. Clear liquids. Plan for EGD tomorrow a.m. hold antiplatelet or 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 agent, aspirin Plavix and morphine. Patient baseline hemoglobin is around 8 g%. CT abdomen pelvis CTA does not show any acute abnormality. EGD on 08/07/2024 Impressions : - Normal esophagus. - Medium-sized hiatal hernia. - Chronic duodenitis. Biopsied. 08/08: Plan for colonoscopy today. Colonoscopy on 08/08/2024 - Preparation of the colon was fair. - Diverticulosis in the recto-sigmoid colon, in the sigmoid colon and in the descending colon. - Stool in the rectum, in the recto-sigmoid colon, in the transverse colon, in the ascending colon and in the cecum. - A single bleeding colonic angiodysplastic lesion. Treated with a heater probe. Clip was placed. Clip ambulatory service representative: [employer]. - The examined portion of the ileum was normal. - No specimens collected. Recommendations : - Repeat colonoscopy in 1 year for surveillance. ? 08/10/2024; H&H remained stable ? 08/12/2025. Hemoglobin 7.7 2. Cronic congestive heart failure with reduced ejection fraction ? Echo from October 2022 demonstrated EF of 40 to 45%. Patient remains euvolemic 3. 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 Patient is on warfarin held on admission placed on heparin. Patient warfarin started on 08/09/2024 with INR goal of 2.5-3.5 ? 08/10/2024Patient INR 1.4. Patient heparin had apparently not been started following his endoscopic evaluation did start heparin whilst waiting for for his INR to be in the therapeutic range of 2.5-3.5 ? 08/11/2024; INR 1.4 ? 08/13/2024; INR up to 1.7 ? 08/14/2024 7 patient seen INR up to 1.8.Patient is on 4 mg at night increase the dose to 6 mg this evening. Repeat INR ordered for a.m. 4. Coronary artery disease ? With previous CABG patient is on dual antiplatelet therapy with aspirin and Plavix held given his presentation 5. Restrictive lung disease ? Patient last PFT in October 2022 showed moderately severe restrictive ventilatory defect with symmetric reduction in DLCO. Some stigmata of concomitant small liver disease, less consistent with COPD. 6. History of DVT ? Patient was on warfarin with plans to resume statin 08/09/2024 7. Right heel ulcer ? Wound care nurse consulted 8. Diabetes mellitus type II -. Placed on long acting insulin, Accu-Cheks a.c. and at bedtime and covered with sliding scale insulin 9 Peripheral arterial disease ? With history of femoropopliteal bypass patient antiplatelet therapy held given above plan is to resume on discharge 10. Physical deconditioning secondary to patient multiple comorbidities ? Requested for PT OT eval and administrator social welfare to assist with discharge planning 11. DVT prophylaxis ? Patient is on heparin Time spent in the patient's overall evaluation,decision-making process, review of diagnostic data, adjustment of management, discussion with other providers, nursing nursing and ancillary staff involved in patient's care documentation, 35 minutes Charges/Coding Visit Charges Inpatient E&M: 92907 Subs Hosp L2
--- NOTE | 2024-08-14 11:42 | WOUNDNOTE ---
Dressing to the right foot intact. dressing changed is ordered every other day. this nurse changed the dressing yesterday.
[2024-08-14 11:59] LABS: Bedside Glucose 168 mg/dL (74-106)
[2024-08-14 16:32] LABS: Partial Thromboplast Time 53.7 Seconds (24.1-36.2)
[2024-08-14] MEDS: Jantoven 2 MG Tablet PO (16:35)
[2024-08-14] MEDS: Heparin Injection (Vial) 5,000 UNIT/ML VIAL IV (16:44)
[2024-08-14 17:09] LABS: Bedside Glucose 167 mg/dL (74-106)
[2024-08-14] MEDS: Insulin Glargine-YFGN 100 UNIT/ML Pen 12 UNIT SC (22:13)
[2024-08-14] MEDS: Acetaminophen 500 MG Tablet 1000 MG PO (22:14)
[2024-08-14] MEDS: Gabapentin 300 MG Capsule PO (22:14)
[2024-08-14] MEDS: Mirtazapine 15 MG Tablet 7.5 MG PO (22:15)
[2024-08-14] MEDS: Atorvastatin Calcium 40 MG Tablet PO (22:15)
[2024-08-14] MEDS: 0.9% Saline Lock 10 ML Syringe IV (22:15)
[2024-08-14 23:07] LABS: Bedside Glucose 273 mg/dL (74-106)
[2024-08-14 23:25] LABS: Partial Thromboplast Time 58.1 Seconds (24.1-36.2)
[2024-08-15] VITALS (7 sets, daily range): BP systolic 106–116; BP diastolic 43–58; PULSE 63–72; RESP 14–18; TEMP 36.5–36.6; O2SAT 96–98; BMI 31.4
[2024-08-15 05:28] LABS: Absolute Lymphocyte Count 1.19 X10^3/uL (0.83-4.51); Absolute Neutrophil Count 2.2 X10^3/uL (2.0-7.7); Basophil# 0.03 X10^3/uL; Basophil% 0.7 % (0-1); Eosinophil# 0.17 X10^3/uL; Hemoglobin 7.4 g/dL (13.0-16.5); Lymphocyte # 1.19 X10^3/ul (0.83-4.51); Lymphocyte % 28.3 % (19-41); Mean Corp Hgb Conc 32.2 g/dL (32-36); Mean Corpuscular Volume 93.1 fL (80-94); Mean Platelet Vol. 10.4 fl (6.2-12.0); Monocyte# 0.58 X10^3/uL; Monocyte% 13.8 % (0-10); NRBC Flagged by Analyzer 0 % (0-5); Neutrophil % 52.5 % (47-70); Platelet Count 201 K/mm3 (150-450); Red Blood Count 2.47 M/mm3 (4.6-6.2); White Blood Count 4.2 K/mm3 (4.4-11.0)
[2024-08-15 05:42] LABS: Partial Thromboplast Time 58.5 Seconds (24.1-36.2)
[2024-08-15 05:43] LABS: Anion Gap 7 (5-15); BUN 50 mg/dL (7-18); BUN/Creat Ratio 39.1 RATIO (10-20); Calcium,Total 8.4 mg/dL (8.5-10.1); Chloride 108 mmol/L (98-107); Creatinine, Serum 1.28 mg/dL (0.70-1.30); EST Glomerular Filtration Rate 59 mL/min (>60); Est Glom Filt Rate - Afr Amer 71 mL/min (>60); Estimated Creatinine Clearance 64.37 ml/min; Glucose 162 mg/dL (74-106); Sodium Level 139 mmol/L (136-145)
[2024-08-15] MEDS: HEPARIN/D5w 25,000 UNITS 25,000 UNITS/250 ML IV.SOLN. 9 UNITS CONT INF (05:52)
[2024-08-15] MEDS: Metoprolol(XL)Succ 25 MG Tablet PO (07:49)
[2024-08-15] MEDS: Ferrous Sulfate 325 MG Tablet PO (07:50)
[2024-08-15] MEDS: Juven (unflavored) Packet 1 PACKET PO ×2 (07:50→16:01)
[2024-08-15] MEDS: DOXEPIN HCL 50 MG CAPSULE PO (07:50)
[2024-08-15] MEDS: Cholecalciferol (VIT D3) 25 MCG TABLET (1,000 UNITS) PO (07:50)
[2024-08-15] MEDS: Insulin Lispro 100 UNIT/ML INSULN.PEN SC ×5 (07:51→15:56)
[2024-08-15] MEDS: Furosemide 40 MG Tablet PO (07:52)
--- NOTE | 2024-08-15 07:53 | PCM.PN.HOSP ---
Reason for Visit Reason for Visit: Diagnoses Anemia, unspecified (08/06/24) Type 2 diabetes mellitus with diabetic polyneuropathy (08/06/24) Gastrointestinal hemorrhage, unspecified (08/06/24) Non-pressure chronic ulcer of right heel and midfoot with fat layer exposed (08/06/24) Non-pressure chronic ulcer of other part of right foot with fat layer exposed (08/06/24) Objective Data Objective Data Vital Signs: Vital Signs Temp Pulse Resp BP Pulse Ox O2 Del Method 97.7 F L 66 15 116/49 L 98 Room Air 08/15/24 07:46 08/15/24 07:46 08/15/24 07:46 08/15/24 07:46 08/15/24 07:46 08/15/24 07:46 Oxygen Delivery Method Room Air Weight: 224 lb 13.944 oz Body Mass Index (BMI) 31.4 Intake & Output: Intake and Output for Last 24 Hours 08/13/24 08/14/24 08/15/24 23:59 23:59 23:59 Intake Total 1700 / 1700 1769.94 / 1769.94 64.8 / 64.8 Output Total 2500 / 2500 3080 / 3080 200 / 200 Balance -800 / -800 -1310.06 / -1310.06 -135.2 / -135.2 Lab / Micro Data 08/15/24 04:40 08/15/24 04:40 Labs: Laboratory Results - last 24 hr 08/14/24 08:18: POC Glucose 152 H 08/14/24 11:21: POC Glucose 168 H 08/14/24 15:59: APTT 53.7 H 08/14/24 16:30: POC Glucose 167 H 08/14/24 22:10: POC Glucose 273 H 08/14/24 22:39: APTT 58.1 H 08/15/24 04:40: WBC 4.2 L, RBC 2.47 L, Hgb 7.4 L, Hct 23.0 L, MCV 93.1, MCH 30.0, MCHC 32.2, RDW Std Deviation 51.0 H, RDW Coeff of Estrada 15.0 H, Plt Count 201, MPV 10.4, Immature Gran % (Auto) 0.700, Neut % (Auto) 52.5, Lymph % (Auto) 28.3, [place] % (Auto) 13.8 H, Eos % (Auto) 4.0, Baso % (Auto) 0.7, Absolute Neuts (auto) 2.2, Absolute Lymphs (auto) 1.19, Nucleated RBC % 0, APTT 58.5 H, Sodium 139, Potassium 4.0, Chloride 108 H, Carbon Dioxide 24.0, Anion Gap 7, BUN 50 H, Creatinine 1.28, Estim Creat Clear Calc 64.37, Est GFR (MDRD) Af Amer 71, Est GFR (MDRD) Non-Af 59 L, BUN/Creatinine Ratio 39.1 H, Glucose 162 H, Calcium 8.4 L Micro: Microbiology 08/06/24 09:45 Stool Stool Occult Blood (CAMELIA) - Final Assessment & Plan Assessment/Plan (1) Acute GI bleeding: (2) Anemia: PLAN: Plan Patient is 73-year-old gentleman being admitted for GI bleed for last 2 days with severe anemia 1. Severe anemia, - acute on chronic anemia due to GI blood loss: Patient is being admitted to PCU. H&H 6.5/21%. Platelet count 151 K. 2 units of PRBCs ordered. Patient had 1 L of IV normal saline bolus in ED and does not need further as he has significant heart failure and multiple cardiac comorbidity. Monitored H&H every 6 hourly after PRBC transfusion. Lasix 20 mg IV as needed between 2 transfusion for fluid overload. Pantoprazole 40 mg IV every 12 hourly. GI is consulted. Clear liquids. Plan for EGD tomorrow a.m. hold antiplatelet or 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 agent, aspirin Plavix and morphine. Patient baseline hemoglobin is around 8 g%. CT abdomen pelvis CTA does not show any acute abnormality. EGD on 08/07/2024 Impressions : - Normal esophagus. - Medium-sized hiatal hernia. - Chronic duodenitis. Biopsied. 08/08: Plan for colonoscopy today. Colonoscopy on 08/08/2024 - Preparation of the colon was fair. - Diverticulosis in the recto-sigmoid colon, in the sigmoid colon and in the descending colon. - Stool in the rectum, in the recto-sigmoid colon, in the transverse colon, in the ascending colon and in the cecum. - A single bleeding colonic angiodysplastic lesion. Treated with a heater probe. Clip was placed. Clip starch dumper: [employer]. - The examined portion of the ileum was normal. - No specimens collected. Recommendations : - Repeat colonoscopy in 1 year for surveillance. ? 08/10/2024; H&H remained stable ? 08/12/2025. Hemoglobin 7.7 2. Cronic congestive heart failure with reduced ejection fraction ? Echo from October 2022 demonstrated EF of 40 to 45%. Patient remains euvolemic 3. 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 Patient is on warfarin held on admission placed on heparin. Patient warfarin started on 08/09/2024 with INR goal of 2.5-3.5 ? 08/10/2024Patient INR 1.4. Patient heparin had apparently not been started following his endoscopic evaluation did start heparin whilst waiting for for his INR to be in the therapeutic range of 2.5-3.5 ? 08/11/2024; INR 1.4 ? 08/13/2024; INR up to 1.7 ? 08/14/2024 7 patient seen INR up to 1.8.Patient is on 4 mg at night increase the dose to 6 mg this evening. Repeat INR ordered for a.m. 4. Coronary artery disease ? With previous CABG patient is on dual antiplatelet therapy with aspirin and Plavix held given his presentation 5. Restrictive lung disease ? Patient last PFT in October 2022 showed moderately severe restrictive ventilatory defect with symmetric reduction in DLCO. Some stigmata of concomitant small liver disease, less consistent with COPD. 6. History of DVT ? Patient was on warfarin with plans to resume statin 08/09/2024 7. Right heel ulcer ? Wound care nurse consulted 8. Diabetes mellitus type II -. Placed on long acting insulin, Accu-Cheks a.c. and at bedtime and covered with sliding scale insulin 9 Peripheral arterial disease ? With history of femoropopliteal bypass patient antiplatelet therapy held given above plan is to resume on discharge 10. Physical deconditioning secondary to patient multiple comorbidities ? Requested for PT OT eval and social media job titles to assist with discharge planning 11. DVT prophylaxis ? Patient is on heparin Time spent in the patient's overall evaluation,decision-making process, review of diagnostic data, adjustment of management, discussion with other providers, nursing nursing and ancillary staff involved in patient's care documentation, 35 minutes
[2024-08-15] MEDS: Gabapentin 100 MG Capsule PO (08:00)
[2024-08-15 08:22] LABS: Bedside Glucose 146 mg/dL (74-106)
[2024-08-15] MEDS: Collagenase 30gm Tube 1 APPLIC TOPICAL (08:39)
[2024-08-15 08:48] LABS: International Normalized Ratio 2.2; Prothrombin Time (Protime)PT. 25.3 SECONDS (11.7-14.9)
--- NOTE | 2024-08-15 09:53 | TREXTCAR_ITS ---
Diet Diet Order/Speech Therapy: 08/11/24 09:16 Diet: Cardiac: Calorie-Controlled How many daily calories?: 1999 calorie Routine Orders/Code Status Suppository Type: Dulcolax 10mg Suppository Frequency: Daily PRN Routine Lab Work: CBC and INR (Daily for next 3 days) DC O2, CPAP, BIPAP needs Home O2 Discharge instructions: No Wound(s) R Heel: Wound Type: Pressure Injury Dressing Change: santyl with NS moistened gauze R foot: Wound Type: Neuropathic/Diabetic Foot Ulcer Dressing Change: Adaptic Therapies Extremity Affected:: Bilateral Lower Physical Therapy: Eval and Treat Occupational Therapy: Eval and Treat Speech Therapy: Eval and Treat Problem/Diagnosis (1) Acute GI bleeding: Status: Acute Code(s): K92.2 - Gastrointestinal hemorrhage, unspecified (2) Anemia: Status: Acute Code(s): D64.9 - Anemia, unspecified Plan Patient is 73-year-old gentleman being admitted for GI bleed for last 2 days with severe anemia 1. Severe anemia, - acute on chronic anemia due to GI blood loss: Patient is being admitted to PCU. H&H 6.5/21%. Platelet count 151 K. 2 units of PRBCs ordered. Patient had 1 L of IV normal saline bolus in ED and does not need further as he has significant heart failure and multiple cardiac comorbidity. Monitored H&H every 6 hourly after PRBC transfusion. Lasix 20 mg IV as needed between 2 transfusion for fluid overload. Pantoprazole 40 mg IV every 12 hourly. GI is consulted. Clear liquids. Plan for EGD tomorrow a.m. hold antiplatelet or 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 agent, aspirin Plavix and morphine. Patient baseline hemoglobin is around 8 g%. CT abdomen pelvis CTA does not show any acute abnormality. EGD on 08/07/2024 Impressions : - Normal esophagus. - Medium-sized hiatal hernia. - Chronic duodenitis. Biopsied. Colonoscopy on 08/08/2024 - Preparation of the colon was fair. - Diverticulosis in the recto-sigmoid colon, in the sigmoid colon and in the descending colon. - Stool in the rectum, in the recto-sigmoid colon, in the transverse colon, in the ascending colon and in the cecum. - A single bleeding colonic angiodysplastic lesion. Treated with a heater probe. Clip was placed. 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 - The examined portion of the ileum was normal. - No specimens collected. Recommendations : - Repeat colonoscopy in 1 year for surveillance. - Preparation of the colon was fair. - Diverticulosis in the recto-sigmoid colon, in the sigmoid colon and in the descending colon. - Stool in the rectum, in the recto-sigmoid colon, in the transverse colon, in the ascending colon and in the cecum. - A single bleeding colonic angiodysplastic lesion. Treated with a heater probe. Clip was placed. 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 - The examined portion of the ileum was normal. - No specimens collected. Recommendations : - Repeat colonoscopy in 1 year for surveillance. 08/15 ? 08/10/2024; H&H remained stable ? 08/12/2025. Hemoglobin 7.7 08/15 hemoglobin 7.4. IV iron iron infusion ordered. Previous iron workup shows low iron saturation and ferritin. CBC daily. 2. Cronic congestive heart failure with reduced ejection fraction ? Echo from October 2022 demonstrated EF of 40 to 45%. Patient remains euvolemic 3. 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 Patient is on warfarin held on admission placed on heparin. Patient warfarin started on 08/09/2024 with INR goal of 2.5-3.5 ? Patient was on IV heparin drip as he has mechanical valve and warfarin was held for severe anemia and then resumed. ? 08/14/2024 7 patient seen INR up to 1.8.Patient is on 4 mg at night increase the dose to 6 mg this evening. Repeat INR ordered for a.m. 08/15: INR is 2.2. Will discharge the patient on increased dose of warfarin with daily INR and adjust the dose of warfarin accordingly. 4. Coronary artery disease ? With previous CABG patient is on dual antiplatelet therapy with aspirin and Plavix held given his presentation 5. Restrictive lung disease ? Patient last PFT in October 2022 showed moderately severe restrictive ventilatory defect with symmetric reduction in DLCO. Some stigmata of concomitant small liver disease, less consistent with COPD. 6. History of DVT ? Patient was on warfarin with plans to resume statin 08/09/2024 7. Right heel ulcer ? Wound care nurse consulted 8. Diabetes mellitus type II -. Placed on long acting insulin, Accu-Cheks a.c. and at bedtime and covered with sliding scale insulin 9 Peripheral arterial disease ? With history of femoropopliteal bypass patient antiplatelet therapy held given above plan is to resume on discharge 10. Physical deconditioning secondary to patient multiple comorbidities ? Requested for PT OT eval and social worker psychiatric to assist with discharge planning 11. DVT prophylaxis ? Heparin drip discontinued INR at 2.2 Discharge medication reconciliation done. Discharge follow-up instructions completed. Discharge process discussed with the patient and all questions were answered to patient's satisfaction. Follow with PCP in 1 to 2 weeks Total time spent, exact 35 minutes on discharge meds reconciliation, examination, coordination of care with nurses and ancillary staff, review of imaging and blood test and discussion with the patient on follow-up instructions. Allergies/Procedures Done in Hospital Allergies No Known Allergies Allergy (Verified 08/06/24 09:02) Type of Care/Length of Stay Estimated LOS: More Than 30 Days Type of Care Needed: Intermediate Rehab Potential: Good Prognosis: Good Additional Orders/Day of Discharge Day of Discharge: 08/15/24 Dietary and Speech Recommendations Dietitian Recommendations/Changes: Will adjust diet to cardiac; 2000 calorie controlled/consistent carbohydrate diet to manage medical conditions Continue Renny BID with medpass to promote wound healing Will monitor weight, as available. Discharge Plan Admission Admit Date/Time: 08/06/24 12:26 Primary Reason for Your Visit: Severe anemia, lower GI bleed Attending Provider: Kartik Avila Primary Care Provider: Saurabh Hernandez Chi Consulting Providers: Roverto Lyons; Kartik Avila; Jose Gutierrez Instructions Additional Instructions / Restrictions: Right foot wound care: 1. Adaptic to the transmetatarsal amputation stump and graft 2. Santyl nickel thick with moist gauze to the right heel 3. Dry sterile dressing 4. Cast padding 5. 4 inch Donte wrap covering the transmetatarsal amputation stump, heel and mid calf Discharge Orders/Prescriptions Prescriptions: New losartan 50 mg Tablet 50 mg PO DAILY Qty: 0 0RF Rx Instructions: Hold for SBP less than 130 mmHg sennosides-docusate sodium [Stimulant Laxative Plus] 8.6-50 mg Tablet 2 tab PO BID PRN PRN (Reason: Constipation) Qty: 0 0RF warfarin [Jantoven] 4 mg Tablet 4 mg PO DINNER Qty: 0 0RF Rx Instructions: Keep the INR between 2.5-3.5 ascorbic acid (vitamin C) 500 mg tablet 500 mg PO BID Qty: 60 2RF Continued pantoprazole 40 mg tablet,delayed release (DR/EC) 40 mg PO QDAY cholecalciferol (vitamin D3) 25 mcg (1,000 unit) capsule 25 mcg PO DAILY albuterol sulfate 2.5 mg /3 mL (0.083 %) solution for nebulization 2.5 mg inhalation Q4H PRN (Reason: shortness of breath or wheezing) atorvastatin 40 mg Tablet 40 mg PO QHS ferrous sulfate 325 mg (65 mg iron) tablet 325 mg PO DAILY furosemide 40 mg Tablet 40 mg PO DAILY Qty: 0 0RF cyclobenzaprine 10 mg Tablet 10 mg PO Q8H PRN (Reason: Muscle Pain) insulin lispro [Humalog KwikPen Insulin] 100 unit/mL Insulin Pen 5 unit SUBCUT ACHS Rx Instructions: set 5 u in addition to SLIDING SCALE Centrum Silver Men [id number] mcg tablet 1 tab PO DAILY mirtazapine 7.5 mg tablet 7.5 mg PO QHS gabapentin 100 mg capsule 100 mg PO DAILY metoprolol succinate 25 mg tablet extended release 24 hr 25 mg PO DAILY Tradjenta 5 mg tablet 5 mg PO DAILY doxepin 50 mg capsule 50 mg PO DAILY insulin glargine-yfgn 100 unit/mL (3 mL) Insulin Pen 15 unit subcut QHS Renny (with collagen) 7-7-1.5 gram Powder In Packet 1 packet PO BIDCM Qty: 0 0RF acetaminophen 500 mg tablet 1,000 mg PO Q8H PRN (Reason: pain) gabapentin 300 mg capsule 300 mg PO QHS insulin lispro [Humalog KwikPen Insulin] 100 unit/mL Insulin Pen 1 sliding scale dose subcut ACHS Protocol: 3. Sliding Scale Insulin Med Dosing Condition: 150-189 mg/dl = 1 unit Condition: 190-229 mg/dl = 2 units Condition: 230-269 mg/dl = 3 units Condition: 270-309 mg/dl = 4 units Condition: 310-349 mg/dl = 5 units Condition: 350-399 mg/dl = 6 units Condition: 400-449 mg/dl = 7 units Condition: Greater than 449 call physician Protocol Text: - Use for Total Daily Dose of Insulin 37-55 units - Obsese, infected, or steroid patients MEDIUM DOSING ALGORITHIM Held aspirin 81 mg tablet,chewable 1 tab PO DAILY Hold Instructions: Discontinue if platelet count drops less than 50,000 or hemoglobin less than 8 g% clopidogrel [Plavix] 75 mg tablet 75 mg PO DAILY Qty: 90 0RF Hold Instructions: Discontinue if platelet count drops less than 50,000 or hemoglobin less than 8 g% Discontinued losartan 100 mg tablet 100 mg PO DAILY Referrals / Follow Up: Roverto Lyons DPM [Med Staff - Active Staff] - (Follow up at the wound care center next Tuesday for continued care. ) Anatoly Moss DO [Med Staff - Active Staff] - Within 1 Month Saurabh Hernandez Chi, MD [Primary Care Provider] - Disposition Disposition (needs filled in before D/C Order can be placed): Residential Facility
[2024-08-15] MEDS: Pantoprazole Sodium 40 MG in 0.9% Normal Saline (100mL MB+) 100 ML 330 MG IV (10:01)
[2024-08-15] MEDS: 0.9% Saline Lock 10 ML Syringe IV (10:01)
[2024-08-15 11:34] LABS: Bedside Glucose 158 mg/dL (74-106)
--- NOTE | 2024-08-15 12:07 | PCM.DC.SUM ---
Providers Date of Admission: 08/06/24 Date of Discharge: 08/15/24 Primary Care Physician: Dr. Saurabh Hernandez MD Consultations 08/06/24 13:44 Consult: Gastroenterology Routine Consulting Provider: [facility] Reason for Consult: GI bleed EMERGENT Consult: No Notified: Yes Date Notified: 08/06/24 Time Notified: 11:57 Method of Notification: ED Physician Initiated 08/06/24 19:14 Consult: Onc/Wound/boot and saddle repair person Routine Comment: 08/07/24 09:11 Consult: Podiatry Routine Consulting Provider: Roverto Lyons Reason for Consult: R foot wound EMERGENT Consult: No Notified: Yes Date Notified: 08/07/24 Time Notified: 09:27 Method of Notification: Text Reason For Visit: GI BLEED Diagnosis Discharge Diagnosis (1) Acute GI bleeding: Status: Acute Code(s): K92.2 - Gastrointestinal hemorrhage, unspecified (2) Anemia: Status: Acute Code(s): D64.9 - Anemia, unspecified Plan Patient is 73-year-old gentleman being admitted for GI bleed for last 2 days with severe anemia 1. Severe anemia, - acute on chronic anemia due to GI blood loss: Patient is being admitted to PCU. H&H 6.5/21%. Platelet count 151 K. 2 units of PRBCs ordered. Patient had 1 L of IV normal saline bolus in ED and does not need further as he has significant heart failure and multiple cardiac comorbidity. Monitored H&H every 6 hourly after PRBC transfusion. Lasix 20 mg IV as needed between 2 transfusion for fluid overload. Pantoprazole 40 mg IV every 12 hourly. GI is consulted. Clear liquids. Plan for EGD tomorrow a.m. hold antiplatelet or 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 agent, aspirin Plavix and morphine. Patient baseline hemoglobin is around 8 g%. CT abdomen pelvis CTA does not show any acute abnormality. EGD on 08/07/2024 Impressions : - Normal esophagus. - Medium-sized hiatal hernia. - Chronic duodenitis. Biopsied. Colonoscopy on 08/08/2024 - Preparation of the colon was fair. - Diverticulosis in the recto-sigmoid colon, in the sigmoid colon and in the descending colon. - Stool in the rectum, in the recto-sigmoid colon, in the transverse colon, in the ascending colon and in the cecum. - A single bleeding colonic angiodysplastic lesion. Treated with a heater probe. Clip was placed. 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 - The examined portion of the ileum was normal. - No specimens collected. Recommendations : - Repeat colonoscopy in 1 year for surveillance. - Preparation of the colon was fair. - Diverticulosis in the recto-sigmoid colon, in the sigmoid colon and in the descending colon. - Stool in the rectum, in the recto-sigmoid colon, in the transverse colon, in the ascending colon and in the cecum. - A single bleeding colonic angiodysplastic lesion. Treated with a heater probe. Clip was placed. 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 - The examined portion of the ileum was normal. - No specimens collected. Recommendations : - Repeat colonoscopy in 1 year for surveillance. 08/15 ? 08/10/2024; H&H remained stable ? 08/12/2025. Hemoglobin 7.7 08/15 hemoglobin 7.4. IV iron iron infusion ordered. Previous iron workup shows low iron saturation and ferritin. CBC daily. 2. Cronic congestive heart failure with reduced ejection fraction ? Echo from October 2022 demonstrated EF of 40 to 45%. Patient remains euvolemic 3. 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 Patient is on warfarin held on admission placed on heparin. Patient warfarin started on 08/09/2024 with INR goal of 2.5-3.5 ? Patient was on IV heparin drip as he has mechanical valve and warfarin was held for severe anemia and then resumed. ? 08/14/2024 7 patient seen INR up to 1.8.Patient is on 4 mg at night increase the dose to 6 mg this evening. Repeat INR ordered for a.m. 08/15: INR is 2.2. Will discharge the patient on increased dose of warfarin with daily INR and adjust the dose of warfarin accordingly. 4. Coronary artery disease ? With previous CABG patient is on dual antiplatelet therapy with aspirin and Plavix held given his presentation 5. Restrictive lung disease ? Patient last PFT in October 2022 showed moderately severe restrictive ventilatory defect with symmetric reduction in DLCO. Some stigmata of concomitant small liver disease, less consistent with COPD. 6. History of DVT ? Patient was on warfarin with plans to resume statin 08/09/2024 7. Right heel ulcer ? Wound care nurse consulted 8. Diabetes mellitus type II -. Placed on long acting insulin, Accu-Cheks a.c. and at bedtime and covered with sliding scale insulin 9 Peripheral arterial disease ? With history of femoropopliteal bypass patient antiplatelet therapy held given above plan is to resume on discharge 10. Physical deconditioning secondary to patient multiple comorbidities ? Requested for PT OT eval and social media strategist to assist with discharge planning 11. DVT prophylaxis ? Heparin drip discontinued INR at 2.2 Discharge medication reconciliation done. Discharge follow-up instructions completed. Discharge process discussed with the patient and all questions were answered to patient's satisfaction. Follow with PCP in 1 to 2 weeks Total time spent, exact 35 minutes on discharge meds reconciliation, examination, coordination of care with nurses and ancillary staff, review of imaging and blood test and discussion with the patient on follow-up instructions. Medications at Discharge Home Medications atorvastatin 40 mg tablet 40 mg PO QHS cholesterol 11/12/20 ferrous sulfate 325 mg (65 mg iron) tablet 325 mg PO DAILY 10/29/22 furosemide 40 mg tablet 40 mg PO DAILY #0 tabs 11/12/22 cyclobenzaprine 10 mg tablet 10 mg PO Q8H PRN Muscle Pain 12/11/22 insulin lispro 100 unit/mL subcutaneous pen (Humalog KwikPen (U-100) Insulin) 5 unit subcut ACHS 12/11/22 pantoprazole 40 mg tablet,delayed release 40 mg PO QDAY 10/04/23 doxepin 50 mg capsule 50 mg PO DAILY 10/28/23 gabapentin 100 mg capsule 100 mg PO DAILY pain 10/28/23 insulin glargine-yfgn 100 unit/mL (3 mL) subcutaneous pen 15 unit subcut QHS 10/28/23 linagliptin 5 mg tablet (Tradjenta) 5 mg PO DAILY 10/28/23 metoprolol succinate 25 mg tablet,extended release 24 hr 25 mg PO DAILY bp 10/28/23 mirtazapine 7.5 mg tablet 7.5 mg PO QHS 10/28/23 [id number] 300 mcg-K 60 mcg-lycop 600 mcg-lutein 300 mcg tablet (Centrum Silver Men) 1 tab PO DAILY 10/28/23 cholecalciferol (vitamin D3) 25 mcg (1,000 unit) capsule 25 mcg PO DAILY 10/31/23 clopidogrel 75 mg tablet (Plavix) 75 mg PO DAILY #90 tabs 12/21/23 arginine 7 gram-glutam 7 gram-CaHMB 1.5 [id number] oral pwd pkt (Renny (with collagen)) 1 packet PO BIDCM #0 ea 03/02/24 albuterol sulfate 2.5 mg/3 mL (0.083 %) solution for nebulization 2.5 mg inhalation Q4H PRN shortness of breath or wheezing 07/19/24 acetaminophen 500 mg tablet 1,000 mg PO Q8H PRN pain 08/06/24 aspirin 81 mg chewable tablet 1 tab PO DAILY 08/06/24 gabapentin 300 mg capsule 300 mg PO QHS 08/06/24 insulin lispro 100 unit/mL subcutaneous pen (Humalog KwikPen (U-100) Insulin) 1 sliding scale dose subcut ACHS 08/06/24 ascorbic acid (vitamin C) 500 mg tablet 500 mg PO BID #60 tabs 08/15/24 losartan 50 mg tablet 50 mg PO DAILY #0 tabs 08/15/24 sennosides 8.6 mg-docusate sodium 50 mg tablet (Stimulant Laxative Plus) 2 tab PO BID PRN PRN Constipation #0 tabs 08/15/24 warfarin 4 mg tablet (Jantoven) 4 mg PO DINNER #0 tabs 08/15/24 Physical Exam Narrative Seen and examined today. No acute complaint. Patient on IV Epidrin seems frustrated as he wants to go home. hysical exam: General: Alert, Oriented x3, Cooperative. BMI 30.2 kg/m?. HEENT: Atraumatic, PERRLA, EOMI, Normocephalic Oral: Oral mucosa moist. No Gingival or Mucosal Lesions/ Ulcerations Neck: Supple, No JVD, Negative Carotid Bruits Chest wall/Lungs: Air entry diminished in bilateral lung bases. No crepitation/rhonchi Cardiovascular: Status post CABG scar with unclosed sternotomy with overlying skin graft. Sinus rhythm, Normal S1, Normal S2. Mechanical aortic valve sound. Abdomen: Bowel Sounds Present, Soft, Non Tender, Non-Distended : No dysuria. No renal angle tenderness. No suprapubic tenderness. Extremities: Mild 1+ edema, Capillary Refill Less than 3 Seconds Skin: Right TMA. Dressing is dry Musculoskeletal: No Tenderness to Palpation of Joints or Extremities. ROM limited. Decreased mobility Neurological: Cranial nerves II-XII grossly intact, DTR 2+/4. No acute focal neurological deficit. Psych/Mental Status: Normal Affect, Appropriate. Weight / BMI Weight Weight: 224 lb 13.944 oz Body Mass Index (BMI) 31.4 ABG / Lab / Microbiology Data 08/15/24 04:40 08/15/24 04:40 Laboratory: Laboratory Results - last 24 hr 08/14/24 15:59: APTT 53.7 H 08/14/24 16:30: POC Glucose 167 H 08/14/24 22:10: POC Glucose 273 H 08/14/24 22:39: APTT 58.1 H 08/15/24 04:40: WBC 4.2 L, RBC 2.47 L, Hgb 7.4 L, Hct 23.0 L, MCV 93.1, MCH 30.0, MCHC 32.2, RDW Std Deviation 51.0 H, RDW Coeff of Estrada 15.0 H, Plt Count 201, MPV 10.4, Immature Gran % (Auto) 0.700, Neut % (Auto) 52.5, Lymph % (Auto) 28.3, Walker % (Auto) 13.8 H, Eos % (Auto) 4.0, Baso % (Auto) 0.7, Absolute Neuts (auto) 2.2, Absolute Lymphs (auto) 1.19, Nucleated RBC % 0, PT 25.3 H, INR 2.2, APTT 58.5 H, Sodium 139, Potassium 4.0, Chloride 108 H, Carbon Dioxide 24.0, Anion Gap 7, BUN 50 H, Creatinine 1.28, Estim Creat Clear Calc 64.37, Est GFR (MDRD) Af Amer 71, Est GFR (MDRD) Non-Af 59 L, BUN/Creatinine Ratio 39.1 H, Glucose 162 H, Calcium 8.4 L 08/15/24 07:43: POC Glucose 146 H 08/15/24 11:11: POC Glucose 158 H Microbiology: Microbiology 08/06/24 09:45 Stool Stool Occult Blood ([facility]) - Final D/C Instructions DC O2, CPAP, BIPAP Needs Home O2 Discharge instructions: No Meaningful Use Info Meaningful Use Meaningful Use Diagnoses (Choose all that apply): None applicable Ischemic Stroke Statin Dosing Therapy Reference: STATIN DOSE THERAPY REFERENCE: * Patients > 75 years receive moderate or high dose statin therapy. * Patients 75 years or YOUNGER should receive HIGH intensity statin dose unless contraindicated. You will be required to document reason for non-treatment if statin daily dose does not meet guidelines. HIGH DOSE STATIN THERAPY DAILY Atorvastatin > than or = to 40 mg Rosuvastatin > than or = to 20 mg Amlodipine + Atorvastatin > than or = to 2.5/40 mg Ezetimibe + Simvastatin 10/80 mg Simvastatin 80mg Discharge Plan Admission Admit Date/Time: 08/06/24 12:26 Primary Reason for Your Visit: Severe anemia, lower GI bleed Attending Provider: Kartik Avila Primary Care Provider: Saurabh Hernandez Chi Consult[employer] Providers: Roverto Lyons; Kartik Avila; Jose Gutierrez Instructions Additional Instructions / Restrictions: Right foot wound care: 1. Adaptic to the transmetatarsal amputation stump and graft 2. Santyl nickel thick with moist gauze to the right heel 3. Dry sterile dressing 4. Cast padding 5. 4 inch Donte wrap covering the transmetatarsal amputation stump, heel and mid calf Discharge Orders/Prescriptions Prescriptions: New losartan 50 mg Tablet 50 mg PO DAILY Qty: 0 0RF Rx Instructions: Hold for SBP less than 130 mmHg sennosides-docusate sodium [Stimulant Laxative Plus] 8.6-50 mg Tablet 2 tab PO BID PRN PRN (Reason: Constipation) Qty: 0 0RF warfarin [Jantoven] 4 mg Tablet 4 mg PO DINNER Qty: 0 0RF Rx Instructions: Keep the INR between 2.5-3.5 ascorbic acid (vitamin C) 500 mg tablet 500 mg PO BID Qty: 60 2RF Continued pantoprazole 40 mg tablet,delayed release (DR/EC) 40 mg PO QDAY cholecalciferol (vitamin D3) 25 mcg (1,000 unit) capsule 25 mcg PO DAILY albuterol sulfate 2.5 mg /3 mL (0.083 %) solution for nebulization 2.5 mg inhalation Q4H PRN (Reason: shortness of breath or wheezing) atorvastatin 40 mg Tablet 40 mg PO QHS ferrous sulfate 325 mg (65 mg iron) tablet 325 mg PO DAILY furosemide 40 mg Tablet 40 mg PO DAILY Qty: 0 0RF cyclobenzaprine 10 mg Tablet 10 mg PO Q8H PRN (Reason: Muscle Pain) insulin lispro [Humalog KwikPen Insulin] 100 unit/mL Insulin Pen 5 unit SUBCUT ACHS Rx Instructions: set 5 u in addition to SLIDING SCALE Centrum Silver Men [id number] mcg tablet 1 tab PO DAILY mirtazapine 7.5 mg tablet 7.5 mg PO QHS gabapentin 100 mg capsule 100 mg PO DAILY metoprolol succinate 25 mg tablet extended release 24 hr 25 mg PO DAILY Tradjenta 5 mg tablet 5 mg PO DAILY doxepin 50 mg capsule 50 mg PO DAILY insulin glargine-yfgn 100 unit/mL (3 mL) Insulin Pen 15 unit subcut QHS Renny (with collagen) 7-7-1.5 gram Powder In Packet 1 packet PO BIDCM Qty: 0 0RF acetaminophen 500 mg tablet 1,000 mg PO Q8H PRN (Reason: pain) gabapentin 300 mg capsule 300 mg PO QHS insulin lispro [Humalog KwikPen Insulin] 100 unit/mL Insulin Pen 1 sliding scale dose subcut ACHS Protocol: 3. Sliding Scale Insulin Med Dosing Condition: 150-189 mg/dl = 1 unit Condition: 190-229 mg/dl = 2 units Condition: 230-269 mg/dl = 3 units Condition: 270-309 mg/dl = 4 units Condition: 310-349 mg/dl = 5 units Condition: 350-399 mg/dl = 6 units Condition: 400-449 mg/dl = 7 units Condition: Greater than 449 call physician Protocol Text: - Use for Total Daily Dose of Insulin 37-55 units - Obsese, infected, or steroid patients MEDIUM DOSING ALGORITHIM Held aspirin 81 mg tablet,chewable 1 tab PO DAILY Hold Instructions: Discontinue if platelet count drops less than 50,000 or hemoglobin less than 8 g% clopidogrel [Plavix] 75 mg tablet 75 mg PO DAILY Qty: 90 0RF Hold Instructions: Discontinue if platelet count drops less than 50,000 or hemoglobin less than 8 g% Discontinued losartan 100 mg tablet 100 mg PO DAILY Referrals / Follow Up: Rovetro Lyons DPM [Med Staff - Active Staff] - (Follow up at the wound care center next Tuesday for continued care. ) Anatoly Moss DO [Med Staff - Active Staff] - Within 1 Month Saurabh Hernandez Chi, MD [Primary Care Provider] - Disposition Disposition (needs filled in before D/C Order can be placed): [facility] Charges/Coding Visit Charges Inpatient E&M: 61663 Disch Hosp >30min
--- NOTE | 2024-08-15 12:12 | CASEMGMT ---
KALANI spoke with patient letting him know that after he gets his iron infusion today we will work on getting him back to [facility]. Patient verbalized understanding. Ashlyn ROBERTS
--- NOTE | 2024-08-15 14:13 | CASEMGMT ---
Patient is ready for discharge back to [facility]. Plan: d/c back to [facility] under intermediate level of care. Physicians will transport patient via wheelchair van. Ashlyn ROBERTS
[2024-08-15] MEDS: Sodium Ferric Gluconat/Sucrose 250 MG in 0.9% Normal Saline (250mL Bag) 250 ML 135 MG IV (14:14)
--- NOTE | 2024-08-15 16:04 | CASEMGMT ---
Discharge orders, signed med list and transport time sent to [facility]. Physicians will transport patient by wheelchair at 5p. Nursing, SW, and pt updated. Lizabeth Church DC Planning Asst.
[2024-08-15 16:22] LABS: Bedside Glucose 187 mg/dL (74-106)
--- NOTE | 2024-08-15 17:27 | NURSING ---
170-PT INFORMED THAT TRANSPORT HAS BEEN DELAYED FROM 0 TO 1900/1929
--- NOTE | 2024-08-15 17:30 | NURSING ---
REPORT WAS CALLED TO SYEDA ASHRAF POTLATCH EARLIER AROUND 1530. THIS NURSE JUST CALLED AND NOTIFIED [facility] THAT TRANSPORT WILL NOT BE HERE UNTIL 1899/1929.
== END 2024-08-15 20:00 | disposition skilled nursing facility (03) | DRG 357 ==
LOC: ED 12:18 → PCU 12:43
PROVIDERS: Anesthesiology; Family Medicine; Internal Medicine; Internal Medicine Gastroenterology; Admitting Provider Internal Medicine; Emergency Provider Emergency Medicine; PCP Family Medicine Geriatric Medicine; Visit Provider Internal Medicine
PROC: 0DJ08ZZ Inspection of Upper Intestinal Tract, Via Natural or Artificial Opening Endoscopic (ICD-10-PCS; CPT 43235; principal; 2024-08-07 15:40)
PROC: 0DJD8ZZ Inspection of Lower Intestinal Tract, Via Natural or Artificial Opening Endoscopic (ICD-10-PCS; CPT 45378; principal; 2024-08-08 12:25)
DX: K55.21 Angiodysplasia of colon with hemorrhage (principal); D68.32 Hemorrhagic disorder due to extrinsic circulating 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s; L97.412 Non-pressure chronic ulcer of right heel and midfoot with fat layer exposed; I13.0 Hypertensive heart and chronic kidney disease with heart failure and stage 1 through stage 4 chronic kidney disease, or unspecified chronic kidney disease; I50.42 Chronic combined systolic (congestive) and diastolic (congestive) heart failure; D69.6 Thrombocytopenia, unspecified; I27.21 Secondary pulmonary arterial hypertension; E11.22 Type 2 diabetes mellitus with diabetic chronic kidney disease; J44.9 Chronic obstructive pulmonary disease, unspecified; D50.0 Iron deficiency anemia secondary to blood loss (chronic); N18.9 Chronic kidney disease, unspecified; I08.2 Rheumatic disorders of both aortic and tricuspid valves; K76.9 Liver disease, unspecified; E11.42 Type 2 diabetes mellitus with diabetic polyneuropathy; E11.51 Type 2 diabetes mellitus with diabetic peripheral angiopathy without gangrene; E11.65 Type 2 diabetes mellitus with hyperglycemia; E78.5 Hyperlipidemia, unspecified; K21.9 Gastro-esophageal reflux disease without esophagitis; I25.5 Ischemic cardiomyopathy; K57.30 Diverticulosis of large intestine without perforation or abscess without bleeding; F17.200 Nicotine dependence, unspecified, uncomplicated; Z79.4 Long term (current) use of insulin; I25.10 Atherosclerotic heart disease of native coronary artery without angina pectoris; K44.9 Diaphragmatic hernia without obstruction or gangrene; K29.80 Duodenitis without bleeding; E11.621 Type 2 diabetes mellitus with foot ulcer; K64.8 Other hemorrhoids; I44.0 Atrioventricular block, first degree; I25.2 Old myocardial infarction; Z86.718 Personal history of other venous thrombosis and embolism; Z79.84 Long term (current) use of oral hypoglycemic drugs; R62.7 Adult failure to thrive; Z95.1 Presence of aortocoronary bypass graft; Z95.2 Presence of prosthetic heart valve; Z79.82 Long term (current) use of aspirin; Z79.02 Long term (current) use of antithrombotics/antiplatelets; Z79.01 Long term (current) use of 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s; Z79.899 Other long term (current) drug therapy
CPT/HCPCS: 36415; 71045; 74174; 80048; 80053; 81001; 82274; 82962; 83036; 83605; 83690; 83735; 84100; 85014; 85018; 85025; 85610; 85730; 86850; 86900; 86901; 88305; 93005; 94668; 97110; 97161; 97530; 99252; 99285; P9016; Q9967; A4216; G0463; J2405; J2916

== ENCOUNTER 2024-09-03 23:37 | Inpatient (IN) | payer MEDICARE, MEDICAID, SELFPAY ==
[2024-09-03 23:38] VITALS: BP 154/67; PULSE 110; RESP 38; TEMP 38.6; O2SAT 89; O2SAT 97; BMI 31.6
[2024-09-03 23:45] VITALS: BP 159/64; PULSE 107; RESP 34; TEMP 38.6; O2SAT 89
[2024-09-04] VITALS (29 sets, daily range): BP systolic 94–141; BP diastolic 45–85; PULSE 66–115; RESP 22–46; TEMP 36.6–38.3; O2SAT 92–100; BMI 30.4
--- NOTE | 2024-09-04 00:17 | ED.VIS.DYS ---
HPI History of Present Illness Chief Complaint: Shortness of Breath Narrative Narrative: Chief complaint and HPI: Shortness of breath. 73-year-old male with past medical history of chronic foot ulcers, CAD, CHF, DM, valve replacement on warfarin presents for evaluation of shortness of breath. Patient is a very poor historian and therefore history taken by EMS report. Per report, patient had increased shortness of breath since yesterday with cough and fever. He denies any chest pain, abdominal pain, nausea, vomiting, dysuria. Review of systems: See HPI Medications: As listed on the chart Allergies: As listed on the chart PFSH: Per chart Vital signs: As listed on the chart. Reviewed. Physical exam: Gen: Alert, oriented x 3 but very poor historian Head: Normocephalic, atraumatic Eyes: No sclera icterus, conjunctiva clear, PERRL EOMI, ENT: Dry mucous membranes Neck: Trachea midline, No JVD CV: Tachycardic, regular rhythm, no murmurs, no peripheral edema Resp: Lungs diminished in the bilateral bases, coarse, wheezing, tachypnea, on nasal cannula GI: Abd soft, non-distended, non-tender, no r/r/g, large hernia Musc: Moves all extremities, bilateral partial foot amputation with ulcers x 2 to the right foot-not infected Skin: Warm, dry Neuro: Alert, oriented, grossly intact, sensation intact Psych: Cooperative, appropriate mood and affect [facility] Medical History (Updated 09/04/24 @ 04:[address] Feliciano Pace MD) CHF (congestive heart failure) Anemia Non-pressure chronic ulcer of right heel and midfoot with fat layer exposed Non-pressure chronic ulcer of other part of right foot with bone involvement without evidence of necrosis Non-pressure chronic ulcer of right heel and midfoot with necrosis of muscle Non-pressure chronic ulcer of other part of right foot with muscle involvement without evidence of necrosis Non-pressure chronic ulcer of other part of right lower leg with fat layer exposed Diabetes mellitus PVD (peripheral vascular disease) Anemia Diabetic foot infection PAOD (peripheral arterial occlusive disease) Trigger finger of both hands Amputation of second toe, right, traumatic Aftercare following surgery of the circulatory system Anemia Hyperbilirubinemia Nicotine dependence, cigarettes, uncomplicated Atherosclerosis of [place] arteries of right leg with ulceration of other part of foot Non-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 Peripheral vascular occlusive disease Diabetic ulcer of toe of left foot associated with type 2 diabetes mellitus Ulcer of toe of left foot Atherosclerosis of [place] arteries of left leg with ulceration of other part of foot Wears glasses Alcohol use Insulin dependent diabetes mellitus Back pain Syncope Dietary restriction Cardiology follow-up encounter History of rheumatic fever ZOFIA (acute kidney injury) Recurrent right pleural effusion Osteomyelitis of toe of right foot Non-pressure chronic ulcer of other part of left foot with fat layer exposed Acute exacerbation of CHF (congestive heart failure) Anticoagulant long-term use Acute and chronic respiratory failure with hypercapnia Encephalopathy acute Acute hypercapnic respiratory failure Atherosclerosis of lower extremity with ulceration COPD (chronic obstructive pulmonary disease) Inability to walk Adult failure to thrive Smoker Congestive heart failure Sternal wound infection 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 MSSA (methicillin susceptible Staphylococcus aureus) infection History of non-ST elevation myocardial infarction (NSTEMI) (04/23/20) Non-healing surgical wound (05/01/20) [facility] current use of 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 Chronic combined systolic and diastolic CHF (congestive heart failure) Type 2 diabetes mellitus Atherosclerosis of coronary artery without angina pectoris Nicotine dependence Ischemic cardiomyopathy Secondary pulmonary arterial hypertension Essential (primary) hypertension Nonrheumatic aortic (valve) stenosis 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 Osteomyelitis Diabetic foot infection Bleeding disorder Ulcer of right foot with fat layer exposed COPD (chronic obstructive pulmonary disease) Hyperlipidemia DVT (deep venous thrombosis) GERD (gastroesophageal reflux disease) Home Medications ?Medication ?Instructions ?Recorded ?Last Taken ?Type atorvastatin 40 mg tablet 40 mg PO QHS cholesterol 11/12/20 11/03/23 History ferrous sulfate 325 mg (65 mg 325 mg PO DAILY 10/29/22 11/02/23 History iron) tablet furosemide 40 mg tablet 40 mg PO DAILY #0 tabs 11/12/22 11/02/23 Rx cyclobenzaprine 10 mg tablet 10 mg PO Q8H PRN Muscle Pain 12/11/22 11/02/23 History insulin lispro 100 unit/mL 5 unit subcut ACHS 12/11/22 11/03/23 History subcutaneous pen (Humalog KwikPen (U-100) Insulin) pantoprazole 40 mg tablet,delayed 40 mg PO QDAY 10/04/23 11/02/23 History release doxepin 50 mg capsule 50 mg PO DAILY 10/28/23 11/02/23 History gabapentin 100 mg capsule 100 mg PO DAILY pain 10/28/23 08/07/24 History insulin glargine-yfgn 100 unit/mL 15 unit subcut QHS 10/28/23 11/03/23 History (3 mL) subcutaneous pen linagliptin 5 mg tablet (Tradjenta) 5 mg PO DAILY 10/28/23 11/03/23 History metoprolol succinate 25 mg 25 mg PO DAILY bp 10/28/23 08/07/24 History tablet,extended release 24 hr mirtazapine 7.5 mg tablet 7.5 mg PO QHS 10/28/23 11/03/23 History kbuxfrhv-oi-igwtd 300 mcg-K 60 1 tab PO DAILY 10/28/23 11/02/23 History mcg-lycop 600 mcg-lutein 300 mcg tablet (Centrum Silver Men) cholecalciferol (vitamin D3) 25 25 mcg PO DAILY 10/31/23 11/02/23 History mcg (1,000 unit) capsule arginine 7 gram-glutam 7 1 packet PO BIDCM #0 ea 03/02/24 Unknown Rx gram-CaHMB 1.5 kqdz-jwsez-xd-min oral pwd pkt (Renny (with collagen)) albuterol sulfate 2.5 mg/3 mL 2.5 mg inhalation Q4H PRN 07/19/24 Unknown History (0.083 %) solution for nebulization shortness of breath or wheezing acetaminophen 500 mg tablet 1,000 mg PO Q8H PRN pain 08/06/24 Unknown History gabapentin 300 mg capsule 300 mg PO QHS 08/06/24 Unknown History insulin lispro 100 unit/mL 1 sliding scale dose subcut ACHS 08/06/24 Unknown History subcutaneous pen (Humalog KwikPen (U-100) Insulin) ascorbic acid (vitamin C) 500 mg 500 mg PO BID #60 tabs 08/15/24 Unknown Rx tablet losartan 50 mg tablet 50 mg PO DAILY #0 tabs 08/15/24 Unknown Rx sennosides 8.6 mg-docusate sodium 2 tab PO BID PRN PRN Constipation 08/15/24 Unknown Rx 50 mg tablet (Stimulant Laxative #0 tabs Plus) warfarin 4 mg tablet (Jantoven) 4 mg PO DINNER #0 tabs 08/15/24 Unknown Rx Allergy/AdvReac Type Severity Reaction Status Date / Time No Known Allergies Allergy Verified 08/06/24 09:02 Family History Mother Diabetes Heart disease Father Diabetes Surgical History History of amputation History of incision and drainage (09/22/20) History of angioplasty of peripheral vessel (01/02/10) History of lumbar laminectomy History of femoropopliteal bypass (2008) H/O coronary artery bypass surgery (05/01/20) History of mechanical aortic valve replacement History of left heart catheterization (04/23/20) Social History household members: significant other Smoking Status: Light Smoker (<10/day) alcohol intake: never substance use type: does not use caffeine: No EXAM Physical Exam Const Vital Signs: 09/03/24 23:38 09/03/24 23:45 09/04/24 00:21 Temperature 101.5 F H 101.5 F H Temperature Source Oral Oral Pulse Rate 110 H 107 H 115 H Respiratory Rate 38 H 34 H 46 H Respiratory Effort Respiratory Depth Respiratory Pattern Tachypnea Blood Pressure 154/67 H 159/64 H Blood Pressure Mean 96 95 Pulse Ox 89 89 Oxygen Delivery Method Room Air Room Air Oxygen Flow Rate (L/min) 09/04/24 00:39 09/04/24 00:45 09/04/24 00:57 Temperature 100 F H Temperature Source Oral Pulse Rate 113 H Respiratory Rate 28 H Respiratory Effort Short of Breath Labored Respiratory Depth Shallow Respiratory Pattern Tachypnea Blood Pressure 141/55 H Blood Pressure Mean 83 Pulse Ox 98 98 Oxygen Delivery Method Nasal Cannula Room Air Nasal Cannula Oxygen Flow Rate (L/min) 3 2 09/04/24 02:00 09/04/24 03:00 09/04/24 03:59 Temperature 99.6 F H 99.0 F 99.9 F H Temperature Source Oral Oral Pulse Rate 115 H 102 H 98 Respiratory Rate 23 H 28 H 23 H Respiratory Effort Respiratory Depth Respiratory Pattern Blood Pressure 110/50 L 124/85 H 98/49 L Blood Pressure Mean 70 98 65 Pulse Ox 98 99 98 Oxygen Delivery Method Nasal Cannula Room Air Oxygen Flow Rate (L/min) 2 MDM MDM MDM Narrative Medical decision making narrative: 73-year-old male with past medical history of chronic foot ulcers, CAD, CHF, DM, valve replacement on warfarin presents for evaluation of shortness of breath. Differential diagnosis includes but is not limited to viral illness, influenza, COVID, pneumonia, ACS, CHF. On presentation patient is tachycardic, tachypneic, febrile, and hypoxic on room air. Patient placed on nasal cannula with improvement oxygenation. Tylenol, DuoNebs, NS bolus ordered for symptoms. Shortness of breath workup ordered. EKG and chest x-ray reviewed see below. CBC without leukocytosis. Patient has baseline anemia. New thrombocytopenia. VBG without hypercapnia or acidosis. BMP without ZOFIA. BNP elevated at 470. Troponin 89. Will obtain delta. Patient not having chest pain. On reexamination, patient's increased work of breathing has improved. His fever is improving. He still remains on oxygen. Patient is positive for influenza A. Given that he states that his shortness of breath started yesterday this will place him within the Tamiflu window. Patient ordered Tamiflu. Repeat troponin 120. On reevaluation patient still denies chest pain. Given patient's acute hypoxia with elevated troponin, patient will warrant admission. Patient permed understand the plan. Patient was discussed with hospice service who accepted admission. EKG: Interpreted by me/EM physician: EKG shows sinus tachycardia with a heart rate of 110. No acute ischemic changes. Diagnostic: Interpreted by me/EM physician: Chest x-ray without pneumonia, effusion, cardiomegaly, pneumothorax. Patient has a large hernia which is consistent with his physical exam Impression: 1. Acute hypoxia secondary to #2 requiring nasal cannula 2. Influenza A infection 3. Elevated troponin 4. Thrombocytopenia 5. Chronic anemia Lab Data Labs: Laboratory Results - last 24 hr 09/04/24 09/04/24 00:21 02:25 WBC 5.4 RBC 3.23 L Hgb 9.9 L Hct 30.8 L MCV 95.4 H MCH 30.7 MCHC 32.1 RDW Std Deviation 51.9 H RDW Coeff of [place] 14.9 H Plt Count 130 L MPV 10.6 Immature Gran % (Auto) 0.600 Neut % (Auto) 83.7 H Lymph % (Auto) 7.0 L [place] % (Auto) 8.3 Eos % (Auto) 0.2 Baso % (Auto) 0.2 Absolute Neuts (auto) 4.6 Absolute Lymphs (auto) 0.38 L Nucleated RBC % 0 Sodium 140 Potassium 3.7 Chloride 109 H Carbon Dioxide 25.0 Anion Gap 6 BUN 34 H Creatinine 1.14 Estim Creat Clear Calc 72.55 Est GFR (MDRD) Af Amer 81 Est GFR (MDRD) Non-Af 67 BUN/Creatinine Ratio 29.8 H Glucose 102 Calcium 8.6 Troponin I High Sens 89 H 120 H B-Natriuretic Peptide 470.6 H ABG Data ABG results: ABG 09/04/24 00:35 Specimen Type GLYNN Sample Site Not entered O2 % 3.0 VBG pH 7.40 VBG pO2 48 H VBG HCO3 25 VBG Total CO2 26 VBG O2 Sat (Calc) 84 H VBG Base Excess 0 POC Mix VBG pCO2 Pt Tmp 40.2 L O2 Delivery Device Cannula Radiography Diagnostic Testing: Clinical Impression(s) from Imaging Studies Chest X-Ray 09/04/24 01:10 IMPRESSION: Large right lower lung mass. Follow-up CT chest is recommended for further evaluation. Reading Location: [id number] Discharge Plan Triage Chief Complaint: Shortness of Breath ED Provider: Chivo Ervin Dx/Rx/DC Orders Primary Care Provider: Saurabh Hernandez Chi
[2024-09-04] MEDS: Ipratropium/Albuterol Sulfate 3 ML AMPUL.NEB 9 ML INHALATION (00:21)
[2024-09-04 00:30] LABS: Absolute Lymphocyte Count 0.38 X10^3/uL (0.83-4.51); Absolute Neutrophil Count 4.6 X10^3/uL (2.0-7.7); Basophil# 0.01 X10^3/uL; Basophil% 0.2 % (0-1); Eosinophil# 0.01 X10^3/uL; Eosinophils% 0.2 % (0-5); Hematocrit 30.8 % (40-54); Hemoglobin 9.9 g/dL (13.0-16.5); Lymphocyte # 0.38 X10^3/ul (0.83-4.51); Mean Corp Hgb Conc 32.1 g/dL (32-36); Mean Corpuscular Hgb 30.7 pg (27.0-32.0); Mean Corpuscular Volume 95.4 fL (80-94); Mean Platelet Vol. 10.6 fl (6.2-12.0); Monocyte# 0.45 X10^3/uL; Monocyte% 8.3 % (0-10); NRBC Flagged by Analyzer 0 % (0-5); Neutrophil # 4.55 X10^3/uL (2.7-7.7); Neutrophil % 83.7 % (47-70); POSITIVE DIFFERENTIAL YES; Platelet Count 130 K/mm3 (150-450); RBC Distribution Width CV 14.9 % (11.6-14.6); RBC Distribution Width SD 51.9 fl (35.1-43.9); Red Blood Count 3.23 M/mm3 (4.6-6.2); White Blood Count 5.4 K/mm3 (4.4-11.0)
[2024-09-04] MEDS: 0.9% Normal Saline (1000mL) 1,000 ML 999 ML IV (00:30)
[2024-09-04] MEDS: Acetaminophen 325 MG Tablet 650 MG PO (00:30)
[2024-09-04 00:40] LABS: Blood Gas Specimen Type VEN; O2 Delivery Device Cannula; SITE Not entered; VBG BASE EXCESS 0 mmol/L (-1.0-3.5); VBG Bicarbonate 25 mmol/L (22-26); VBG PO2 48 mmHg (25-40); VBG SO2 84 % (50-70); VBG TCO2 26 mmol/L (23-33); VBG pCO2 40.2 mmHg (41-51)
[2024-09-04 00:50] LABS: Anion Gap 6 (5-15); BUN 34 mg/dL (7-18); BUN/Creat Ratio 29.8 RATIO (10-20); Calcium,Total 8.6 mg/dL (8.5-10.1); Chloride 109 mmol/L (98-107); Creatinine, Serum 1.14 mg/dL (0.70-1.30); EST Glomerular Filtration Rate 67 mL/min (>60); Est Glom Filt Rate - Afr Amer 81 mL/min (>60); Estimated Creatinine Clearance 72.55 ml/min; Glucose 102 mg/dL (74-106); Potassium 3.7 mmol/L (3.5-5.1); Sodium Level 140 mmol/L (136-145); Troponin-I HS 89 pg/mL (3.0-78.0)
--- NOTE | 2024-09-04 00:55 | CPS ---
[0021] 9mg total Duoneb given to pt. in ER
[2024-09-04 01:02] LABS: BNP,B-Type NATRIURETIC PEPTIDE 470.6 pg/mL (0-100)
--- NOTE | 2024-09-04 01:10 | RAD_ITS ---
PROCEDURE: CHEST 1 VIEW (PORTABLE) REASON FOR EXAM: 73-year-old male, shortness of breath. TECHNIQUE: Frontal view of the chest. COMPARISON: Chest radiograph 12/14/2022. FINDINGS: Heart size is mildly enlarged with hyper lucency overlying the cardiac shadow. Large wedge shape lucency within the right lower lung zone. Trace right pleural effusion. No pneumothorax. Degenerative changes are identified within the thoracic spine. RAD/Chest 1 View (Portable) IMPRESSION: Large right lower lung mass. Follow-up CT chest is recommended for further henry luation. Reading Location: [id number]
[2024-09-04] MEDS: Oseltamivir Phosphate 75 MG Capsule PO ×3 (02:24→23:47)
[2024-09-04 03:12] LABS: Troponin-I HS 120 pg/mL (3.0-78.0)
--- NOTE | 2024-09-04 04:07 | PCM.HP.STD ---
HPI - General General Date of Admission: 09/04/24 Date of Service: 09/04/24 Chief Complaint: Shortness of breath HPI Narrative RAPHAEL HADDAD, is a 73 M who presents to the emergency room from local snf due to development of febrile illness and shortness of breath. Patient has a past medical history of chronic foot ulcers, coronary artery disease, congestive heart failure, diabetes status post valve replacement for which she takes Coumadin and has generally had failure to thrive. Patient is a poor historian and was transported by EMS to our facility. Patient denies any chest pain, abdominal pain or nausea vomiting or difficulty urinating. Laboratory studies were remarkable for positive influenza A, slight trend increase in troponin and elevated BNTP. Patient will be admitted for shortness of breath secondary to influenza and started on Tamiflu. [facility] Medical History (Updated 09/04/24 @ 04:[address] Feliciano Pace MD) CHF (congestive heart failure) Anemia Non-pressure chronic ulcer of right heel and midfoot with fat layer exposed Non-pressure chronic ulcer of other part of right foot with bone involvement without evidence of necrosis Non-pressure chronic ulcer of right heel and midfoot with necrosis of muscle Non-pressure chronic ulcer of other part of right foot with muscle involvement without evidence of necrosis Non-pressure chronic ulcer of other part of right lower leg with fat layer exposed Diabetes mellitus PVD (peripheral vascular disease) Anemia Diabetic foot infection PAOD (peripheral arterial occlusive disease) Trigger finger of both hands Amputation of second toe, right, traumatic Aftercare following surgery of the circulatory system Anemia Hyperbilirubinemia Nicotine dependence, cigarettes, uncomplicated Atherosclerosis of [place] arteries of right leg with ulceration of other part of foot Non-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 Peripheral vascular occlusive disease Diabetic ulcer of toe of left foot associated with type 2 diabetes mellitus Ulcer of toe of left foot Atherosclerosis of [place] arteries of left leg with ulceration of other part of foot Wears glasses Alcohol use Insulin dependent diabetes mellitus Back pain Syncope Dietary restriction Cardiology follow-up encounter History of rheumatic fever ZOFIA (acute kidney injury) Recurrent right pleural effusion Osteomyelitis of toe of right foot Non-pressure chronic ulcer of other part of left foot with fat layer exposed Acute exacerbation of CHF (congestive heart failure) Anticoagulant long-term use Acute and chronic respiratory failure with hypercapnia Encephalopathy acute Acute hypercapnic respiratory failure Atherosclerosis of lower extremity with ulceration COPD (chronic obstructive pulmonary disease) Inability to walk Adult failure to thrive Smoker Congestive heart failure Sternal wound infection 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 MSSA (methicillin susceptible Staphylococcus aureus) infection History of non-ST elevation myocardial infarction (NSTEMI) (04/23/20) 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 Chronic combined systolic and diastolic CHF (congestive heart failure) Type 2 diabetes mellitus Atherosclerosis of coronary artery without angina pectoris Nicotine dependence Ischemic cardiomyopathy Secondary pulmonary arterial hypertension Essential (primary) hypertension Nonrheumatic aortic (valve) stenosis 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 Osteomyelitis Diabetic foot infection Bleeding disorder Ulcer of right foot with fat layer exposed COPD (chronic obstructive pulmonary disease) Hyperlipidemia DVT (deep venous thrombosis) GERD (gastroesophageal reflux disease) Home Medications ?Medication ?Instructions ?Recorded ?Last Taken ?Type atorvastatin 40 mg tablet 40 mg PO QHS cholesterol 11/12/20 11/03/23 History ferrous sulfate 325 mg (65 mg 325 mg PO DAILY 10/29/22 11/02/23 History iron) tablet furosemide 40 mg tablet 40 mg PO DAILY #0 tabs 11/12/22 11/02/23 Rx cyclobenzaprine 10 mg tablet 10 mg PO Q8H PRN Muscle Pain 12/11/22 11/02/23 History insulin lispro 100 unit/mL 5 unit subcut ACHS 12/11/22 11/03/23 History subcutaneous pen (Humalog KwikPen (U-100) Insulin) pantoprazole 40 mg tablet,delayed 40 mg PO QDAY 10/04/23 11/02/23 History release doxepin 50 mg capsule 50 mg PO DAILY 10/28/23 11/02/23 History gabapentin 100 mg capsule 100 mg PO DAILY pain 10/28/23 08/07/24 History insulin glargine-yfgn 100 unit/mL 15 unit subcut QHS 10/28/23 11/03/23 History (3 mL) subcutaneous pen linagliptin 5 mg tablet (Tradjenta) 5 mg PO DAILY 10/28/23 11/03/23 History metoprolol succinate 25 mg 25 mg PO DAILY bp 10/28/23 08/07/24 History tablet,extended release 24 hr mirtazapine 7.5 mg tablet 7.5 mg PO QHS 10/28/23 11/03/23 History kdhoxthk-ml-frheg 300 mcg-K 60 1 tab PO DAILY 10/28/23 11/02/23 History mcg-lycop 600 mcg-lutein 300 mcg tablet (Centrum Silver Men) cholecalciferol (vitamin D3) 25 25 mcg PO DAILY 10/31/23 11/02/23 History mcg (1,000 unit) capsule arginine 7 gram-glutam 7 1 packet PO BIDCM #0 ea 03/02/24 Unknown Rx gram-CaHMB 1.5 qstm-enzwb-lm-min oral pwd pkt ([place] (with collagen)) albuterol sulfate 2.5 mg/3 mL 2.5 mg inhalation Q4H PRN 07/19/24 Unknown History (0.083 %) solution for nebulization shortness of breath or wheezing acetaminophen 500 mg tablet 1,000 mg PO Q8H PRN pain 08/06/24 Unknown History gabapentin 300 mg capsule 300 mg PO QHS 08/06/24 Unknown History insulin lispro 100 unit/mL 1 sliding scale dose subcut ACHS 08/06/24 Unknown History subcutaneous pen (Humalog KwikPen (U-100) Insulin) ascorbic acid (vitamin C) 500 mg 500 mg PO BID #60 tabs 08/15/24 Unknown Rx tablet losartan 50 mg tablet 50 mg PO DAILY #0 tabs 08/15/24 Unknown Rx sennosides 8.6 mg-docusate sodium 2 tab PO BID PRN PRN Constipation 08/15/24 Unknown Rx 50 mg tablet (Stimulant Laxative #0 tabs Plus) warfarin 4 mg tablet (Jantoven) 4 mg PO DINNER #0 tabs 08/15/24 Unknown Rx Allergy/AdvReac Type Severity Reaction Status Date / Time No Known Allergies Allergy Verified 08/06/24 09:02 Family History Mother Diabetes Heart disease Father Diabetes Surgical History History of amputation History of incision and drainage (09/22/20) History of angioplasty of peripheral vessel (01/02/10) History of lumbar laminectomy History of femoropopliteal bypass (2008) H/O coronary artery bypass surgery (05/01/20) History of mechanical aortic valve replacement History of left heart catheterization (04/23/20) Social History household members: significant other Smoking Status: Light Smoker (<10/day) alcohol intake: never substance use type: does not use caffeine: No ROS Constitutional Constitutional: Reports chills, fever(s) and weakness Eyes Eyes: Denies blurry vision ENT HEENT: Denies abnormal hearing Cardiovascular Cardiovascular: Reports edema; Denies chest pain or palpitations Respiratory/Chest Respiratory/Chest: Reports cough and shortness of breath with exertion Gastrointestinal Gastrointestinal: Denies abdominal pain Genitourinary Genitourinary: Denies dysuria or urinary frequency Musculoskeletal Musculoskeletal: Denies back pain Integumentary Integumentary: Denies dry skin Neurologic Neurologic: Denies abnormal gait Psychiatric Psychiatric: Denies anxiety Endocrine Endocrinology: Denies change in body appearance Vital Signs Vital Signs Vital Signs: 09/03/24 23:38 09/03/24 23:45 09/04/24 00:21 Temperature 101.5 F H 101.5 F H Temperature Source Oral Oral Pulse Rate 110 H 107 H 115 H Respiratory Rate 38 H 34 H 46 H Respiratory Effort Respiratory Depth Respiratory Pattern Tachypnea Blood Pressure 154/67 H 159/64 H Blood Pressure Mean 96 95 Pulse Ox 89 89 Oxygen Delivery Method Room Air Room Air Oxygen Flow Rate (L/min) 09/04/24 00:39 09/04/24 00:45 09/04/24 00:57 Temperature 100 F H Temperature Source Oral Pulse Rate 113 H Respiratory Rate 28 H Respiratory Effort Short of Breath Labored Respiratory Depth Shallow Respiratory Pattern Tachypnea Blood Pressure 141/55 H Blood Pressure Mean 83 Pulse Ox 98 98 Oxygen Delivery Method Nasal Cannula Room Air Nasal Cannula Oxygen Flow Rate (L/min) 3 2 09/04/24 02:00 09/04/24 03:00 09/04/24 03:59 Temperature 99.6 F H 99.0 F 99.9 F H Temperature Source Oral Oral Pulse Rate 115 H 102 H 98 Respiratory Rate 23 H 28 H 23 H Respiratory Effort Respiratory Depth Respiratory Pattern Blood Pressure 110/50 L 124/85 H 98/49 L Blood Pressure Mean 70 98 65 Pulse Ox 98 99 98 Oxygen Delivery Method Nasal Cannula Room Air Oxygen Flow Rate (L/min) 2 Weight Weight: 226 lb 10.163 oz Body Mass Index (BMI) 31.6 Physical Exam Const alert General Appearance: cooperative Orientation / Consciousness: confused HEENT normocephalic and head/scalp atraumatic Eyes PERRL Neck no lymphadenopathy Lymph Lymphatic: no lymphadenopathy noted Resp normal respiratory effort, normal air movement and clear to auscultation bilaterally Cardio regular rate, regular rhythm, S1 normal heart sound and S2 normal heart sound GI normal to inspection, nondistended, normoactive bowel sounds Extremity normal capillary refill General Extremity: edema bilateral lower extremity Details: mild Skin General Skin Exam: dry skin Neuro no focal motor deficits and no sensory deficits noted Motor Exam: general weakness Psych Mood & Affect: depressed Results Lab / Micro Data 09/04/24 00:21 09/04/24 00:21 Labs: Laboratory Results - last 24 hr 09/04/24 00:21: WBC 5.4, RBC 3.23 L, Hgb 9.9 L, Hct 30.8 L, MCV 95.4 H, MCH 30.7, MCHC 32.1, RDW Std Deviation 51.9 H, RDW Coeff of Estrada 14.9 H, Plt Count 130 L, MPV 10.6, Immature Gran % (Auto) 0.600, Neut % (Auto) 83.7 H, Lymph % (Auto) 7.0 L, [place] % (Auto) 8.3, Eos % (Auto) 0.2, Baso % (Auto) 0.2, Absolute Neuts (auto) 4.6, Absolute Lymphs (auto) 0.38 L, Nucleated RBC % 0, Sodium 140, Potassium 3.7, Chloride 109 H, Carbon Dioxide 25.0, Anion Gap 6, BUN 34 H, Creatinine 1.14, Estim Creat Clear Calc 72.55, Est GFR (MDRD) Af Amer 81, Est GFR (MDRD) Non-Af 67, BUN/Creatinine Ratio 29.8 H, Glucose 102, Calcium 8.6, Troponin I High Sens 89 H, B-Natriuretic Peptide 470.6 H 09/04/24 02:25: Troponin I High Sens 120 H Micro: Microbiology 09/04/24 00:21 Mucosa - Nose SARS-CoV-2, Influenza & RSV (PCR) - Final Influenzae A ABG Data ABG results: ABG 09/04/24 00:35 Specimen Type GLYNN Sample Site Not entered O2 % 3.0 VBG pH 7.40 VBG pO2 48 H VBG HCO3 25 VBG Total CO2 26 VBG O2 Sat (Calc) 84 H VBG Base Excess 0 POC Mix VBG pCO2 Pt Tmp 40.2 L O2 Delivery Device Cannula Imaging Radiology Impression Chest X-Ray 09/04/24 01:10 IMPRESSION: Large right lower lung mass. Follow-up CT chest is recommended for further evaluation. Reading Location: [facility] Assessment & Plan Assessment/Plan (1) Adult failure to thrive: (2) History of mechanical aortic valve replacement: (3) History of non-ST elevation myocardial infarction (NSTEMI): (4) CHF (congestive heart failure): (5) Influenza A: PLAN: Plan 1 shortness of breath secondary to influenza A infection acute?admit patient to general medical floor with droplet isolation, start Tamiflu 75 mg p.o. twice daily, oxygen as needed to maintain saturation above 90%. Can add albuterol treatments as needed for further shortness of breath 2. Congestive heart failure?obtain echocardiogram 3. Elevated troponin?likely secondary to strain from congestive heart failure we will continue patient with telemetry and either PCU or general medical floor with telemetry and cycle cardiac enzymes 4. History of mechanical valve?check INR 5. DVT prophylaxis?patient is anticoagulated 6. Failure to thrive patient does come from snf and would plan to have case management for discharge planning back to facility when improving Charges/Coding Visit Charges Inpatient E&M: 34666 Init Hosp L2
--- NOTE | 2024-09-04 04:21 | ECHOCS_ITS ---
Reason For Study Reason For Study: CHF Procedure This was a 2D Doppler, Color Flow transthoracic echocardiogram. Contrast injection was performed. Exam performed portable in patient room. Left Ventricle Normal LV size. Mild concentric left ventricular hypertrophy. Estimated LVEF 40 to 45%. Inferior septal and posterior hypokinesis. Stage I diastolic dysfunction. Right Ventricle Normal right ventricle. Atria The left atrium is severely enlarged. The right atrium is not well visualized. Mitral Valve Mild (1+) mitral valve insufficiency. Tricuspid Valve Moderate (2+) tricuspid valve insufficiency. Right ventricular systolic pressure estimated to be 46 mmHg. Aortic Valve Prosthetic aortic valve mean peak gradient 17 mmHg. Trace aortic valve regurgitation. Pulmonic Valve The pulmonic valve is not well visualized. Great Vessels Normal sized aortic root. Pericardium/Pleural No pericardial effusion. MMode/2D Measurements & Calculations LVIDd: 5.4 cm IVSd: 1.3 cm LVOT diam: 2.0 cm LVIDs: 4.5 cm LVPWd: 1.2 cm LVOT area: 3.3 cm2 RVDd: 4.0 cm FS: 17.6 % asc Aorta Diam: 3.3 cm LAV(MOD-bp): 43.4 ml LA A4 area: 19.0 cm2 LAV(MOD-bp) Indexed: 19.5 ml/m2 LAV(MOD-sp2): 35.5 ml LAV(MOD-sp4): 52.3 ml LA dimension(2D): 4.9 cm RA A4 area: 15.2 cm2 Time Measurements MV dec time: 0.23 sec Doppler Measurements & Calculations MV E max brian: 126.7 cm/sec Lat Peak E' Brian: 13.4 cm/sec Med Peak E' Brian: 6.8 cm/sec MV A max brian: 82.2 cm/sec E/E' lat: 9.4 E/E' med: 18.5 MV E/A: 1.5 MV dec slope: 551.8 cm/sec2 Ao V2 max: 267.0 cm/sec LV V1 max: 92.6 cm/sec Ao max P.5 mmHg LV V1 max P.4 mmHg Ao V2 mean: 201.4 cm/sec LV V1 mean P.7 mmHg Ao mean P.3 mmHg LV V1 mean: 60.9 cm/sec Ao V2 VTI: 51.7 cm LV V1 VTI: 17.1 cm AV (velocity ratio): 0.33 HAWK(I,D): 1.1 cm2 HAWK(V,D): 1.1 cm2 SV(LVOT): 56.3 ml PA V2 max: 89.1 cm/sec TR max brian: 309.1 cm/sec TR max P.2 mmHg ECHO/Echo Complete W/ Contrast Interpretation Summary Estimated LVEF 40 to 45%. Inferior septal and posterior hypokinesis. Stage I di astolic dysfunction. The left atrium is severely enlarged. Mild (1+) mitral valve insufficiency. Moderate (2+) tricuspid valve insufficiency. Right ventricular systolic pressure estimated to be 46 mmHg. Prosthetic aortic valve mean peak gradient 17 mmHg. Trace aortic valve regurgit ation. Technically difficult study with suboptimal apical images. Ordering Physician: Feliciano Pace Referring Physician: Saurabh Hernandze Chi Performed By: Shelbie Lee, JOCELYN, RVT
[2024-09-04] MEDS: LINAGLIPTIN 5 MG TABLET PO (08:35)
[2024-09-04] MEDS: Pantoprazole Sodium 40 MG Tablet PO (08:35)
[2024-09-04] MEDS: DOXEPIN HCL 50 MG CAPSULE PO (08:35)
[2024-09-04] MEDS: Furosemide 40 MG Tablet PO (08:35)
[2024-09-04] MEDS: Cholecalciferol (VIT D3) 25 MCG TABLET (1,000 UNITS) PO (08:35)
[2024-09-04] MEDS: Metoprolol(XL)Succ 25 MG Tablet PO (08:35)
[2024-09-04] MEDS: Losartan Potassium 50 MG Tablet PO (08:36)
[2024-09-04] MEDS: Insulin Lispro 100 UNIT/ML INSULN.PEN SC ×3 (08:36→23:02)
[2024-09-04] MEDS: Ascorbic Acid 500 MG Tablet PO ×2 (08:36→23:47)
[2024-09-04] MEDS: Multivitamins,Ther W-Minerals Tablet 1 TABLET PO (08:36)
[2024-09-04] MEDS: Juven (unflavored) Packet 1 PACKET PO (08:36)
[2024-09-04] MEDS: Gabapentin 100 MG Capsule PO (08:36)
[2024-09-04] MEDS: Albuterol 2.5 MG/3 ML VIAL.NEB. INHALATION (08:39)
[2024-09-04 08:41] LABS: International Normalized Ratio 1.6; Prothrombin Time (Protime)PT. 19.1 SECONDS (11.7-14.9)
[2024-09-04 08:45] LABS: Bedside Glucose 157 mg/dL (74-106)
--- NOTE | 2024-09-04 10:05 | CASEMGMT ---
KALANI met with patient and confirmed his plan is to return to [facility] when ready. Patient told KALANI he has an appt with Dr Lyons [facility] tomorrow and asked if KALANI could call and cancel. KALANI told patient KALANI will take care of this. KALANI called [facility] and left a message with the medical office receptionist assistant letting them know patient will not be at his appt tomorrow. KALANI did ask for a return call confirming they received KALANI's message. Plan: d/c back to [facility] under intermediate level of care. Ashlyn Parkinson JACKHAMMER SPLITTER OPERATOR ARMANDO
[2024-09-04] MEDS: Phenol/Sodium Phenolate 180ML 5 SPRAY MUCOUS MEM (11:41)
[2024-09-04] MEDS: Ferrous Sulfate 325 MG Tablet PO (11:42)
[2024-09-04] MEDS: Acetaminophen 500 MG Tablet 1000 MG PO (11:50)
[2024-09-04 11:55] LABS: Bedside Glucose 149 mg/dL (74-106)
--- NOTE | 2024-09-04 14:31 | WOUNDNOTE ---
wound photo: right foot
--- NOTE | 2024-09-04 14:32 | WOUNDNOTE ---
wound photo: right foot
--- NOTE | 2024-09-04 14:32 | WOUNDNOTE ---
wound photo: right heel
[2024-09-04] MEDS: Furosemide 20 MG/2 ML VIAL IV ×2 (14:41→23:04)
[2024-09-04] MEDS: 0.9% Saline Lock 10 ML Syringe IV ×2 (14:42→23:08)
--- NOTE | 2024-09-04 15:53 | RAD_ITS ---
PROCEDURE: CHEST 1 VIEW (PORTABLE) REASON FOR EXAM: Shortness of breath TECHNIQUE: Frontal view of the chest COMPARISON: 09/04/2024 at 0116 hours FINDINGS: Heart size is moderately enlarged. The mediastinal contour is unremarkable. Right basilar opacity contiguous with the retrocardiac lucency The bones are unremarkable. Large retrocardiac lucency is noted. RAD/Chest 1 View (Portable) IMPRESSION: 1. Moderate cardiomegaly 2. Large hiatal hernia Reading Location: [facility]
--- NOTE | 2024-09-04 16:06 | PN.HOSP_ITS ---
Reason for Visit Reason for Visit: Diagnoses Old myocardial infarction (09/04/24) Heart failure, unspecified (09/04/24) Influenza due to other identified influenza virus with other respiratory manifestations (09/04/24) Adult failure to thrive (09/04/24) Presence of prosthetic heart valve (09/04/24) Objective Data Objective Data Vital Signs: Vital Signs Temp Pulse Resp BP Pulse Ox O2 Del Method O2 Flow Rate 98.9 F 80 37 H 118/59 L 100 Nasal Cannula 2 09/04/24 06:27 09/04/24 06:27 09/04/24 06:27 09/04/24 06:27 09/04/24 06:27 09/04/24 06:32 09/04/24 06:32 Oxygen Flow Rate (L/min) 2 Oxygen Delivery Method Nasal Cannula Weight: 217 lb 6.012 oz Body Mass Index (BMI) 30.4 Intake & Output: Intake and Output for Last 24 Hours 09/02/24 09/03/24 09/04/24 23:59 23:59 23:59 Intake Total 1000 / 1000 Balance 1000 / 1000 Lab / Micro Data 09/04/24 00:21 09/04/24 00:21 Labs: Laboratory Results - last 24 hr 09/04/24 00:21: WBC 5.4, RBC 3.23 L, Hgb 9.9 L, Hct 30.8 L, MCV 95.4 H, MCH 30.7, MCHC 32.1, RDW Std Deviation 51.9 H, RDW Coeff of Estrada 14.9 H, Plt Count 130 L, MPV 10.6, Immature Gran % (Auto) 0.600, Neut % (Auto) 83.7 H, Lymph % (Auto) 7.0 L, [place] % (Auto) 8.3, Eos % (Auto) 0.2, Baso % (Auto) 0.2, Absolute Neuts (auto) 4.6, Absolute Lymphs (auto) 0.38 L, Nucleated RBC % 0, Sodium 140, Potassium 3.7, Chloride 109 H, Carbon Dioxide 25.0, Anion Gap 6, BUN 34 H, Creatinine 1.14, Estim Creat Clear Calc 72.55, Est GFR (MDRD) Af Amer 81, Est GFR (MDRD) Non-Af 67, BUN/Creatinine Ratio 29.8 H, Glucose 102, Calcium 8.6, T roponin I High Sens 89 H, B-Natriuretic Peptide 470.6 H 09/04/24 02:25: Troponin I High Sens 120 H Micro: Microbiology 09/04/24 00:21 Mucosa - Nose SARS-CoV-2, Influenza & RSV (PCR) - Final Influenzae A ABG Data ABG results: ABG 09/04/24 00:35 Specimen Type GLYNN Sample Site Not entered O2 % 3.0 VBG pH 7.40 VBG pO2 48 H VBG HCO3 25 VBG Total CO2 26 VBG O2 Sat (Calc) 84 H VBG Base Excess 0 POC Mix VBG pCO2 Pt Tmp 40.2 L O2 Delivery Device Cannula Radiography Diagnostic Testing: Radiology Impression Chest X-Ray 09/04/24 01:10 IMPRESSION: Large right lower lung mass. Follow-up CT chest is recommended for further evaluation. Reading Location: [facility] Physical Exam Narrative Seen and examined. Patient is also clearly short of breath, mild respiratory distress, fatigue. Complain of mild anterior chest pain due to cough. Mild wheezing Physical exam General: Alert, Oriented x3, Cooperative. BMI 30.4 kg/m?. HEENT: Atraumatic, PERRLA, EOMI, Normocephalic Oral: Oral mucosa dry. No Gingival or Mucosal Lesions/ Ulcerations Neck: Supple, No JVD, Negative Carotid Bruits Chest wall/Lungs: Air entry diminished in bilateral lung bases. Bilateral wheezing and rhonchi. Mild respiratory distress and tachypnea. Cardiovascular: Status post CABG scar with unclosed sternotomy with overlying skin graft. Sinus rhythm, Normal S1, Normal S2. Mechanical aortic valve sound. Abdomen: Bowel Sounds Present, Soft, Non Tender, Non-Distended : No dysuria. No renal angle tenderness. No suprapubic tenderness. Extremities: Mild 1+ edema, Capillary Refill Less than 3 Seconds Skin: Right TMA scar has healed and dry. No open ulcer. Musculoskeletal: No Tenderness to Palpation of Joints or Extremities. ROM limited. Decreased mobility Neurological: Cranial nerves II-XII grossly intact, DTR 2+/4. No acute focal neurological deficit. Psych/Mental Status: Flat affect. Assessment & Plan Assessment/Plan (1) Adult failure to thrive: (2) History of mechanical aortic valve replacement: (3) History of non-ST elevation myocardial infarction (NSTEMI): (4) CHF (congestive heart failure): (5) Influenza A: PLAN: Plan 73-year-old gentleman was admitted with shortness of breath, cough and fever for 1 day prior to admission. Denies any chest pain abdominal pain nausea or vomiting. Mild hypoxic 89% on room air 1. Acute dyspnea and acute hypoxic respiratory failure secondary to influenza A infection: Patient is being admitted on monitored bed. On Tamiflu 75 mg twice daily. Droplet precaution. Maintain saturation more than 90%. Patient in mild respiratory distress with put on Airvo 45% FiO2.. Chest x-ray initially reviewed and no significant change in previous x-ray. It shows lucencies right lower lung zone probably from bowel in the ventral hernia and superior anterior abdominal wall. 2. Acute on chronic HFpEF/congestive heart failure? Echo in October 2022 Interpretation Summary The estimated ejection fraction is 40-45 %. Normal-appearing prosthetic aortic valve In comparison to previous echo in September 22, 2021 Improvement in LV systolic function. 09/04: BNP elevated 470. Started on Lasix 20 mg IV twice daily as blood pressure is soft, systolic about 118 mmHg. Repeat echo shows EF 40 to 45% mild MR, 2+ TR RVSP 46 mmHg. Prosthetic aortic valve mean gradient 17 mmHg, trace AI. Technically difficult study. 3. Elevated troponin acute on chronic HFpEF?likely secondary to strain from congestive heart failure. On IV furosemide. Heart failure core measures including intake and output, fluid restriction less than 1500 mL, daily weight monitoring, kidney and electrolytes monitoring. Troponin shows 89, 120. 4. History of mechanical valve?on warfarin. INR 1.6 subtherapeutic. Warfarin dose increased. 5. DVT prophylaxis?patient is anticoagulated 6. Failure to thrive patient does come from snf and would plan to have case management for discharge planning back to facility when improving Microbiology Past 72 Hours 09/04/24 00:21 Mucosa - Nose SARS-CoV-2, Influenza & RSV (PCR) - Final Influenzae A Laboratory Results 09/04/24 00:21: WBC 5.4, RBC 3.23 L, Hgb 9.9 L, Hct 30.8 L, MCV 95.4 H, MCH 30.7, MCHC 32.1, RDW Std Deviation 51.9 H, RDW Coeff of Estrada 14.9 H, Plt Count 130 L, MPV 10.6, Immature Gran % (Auto) 0.600, Neut % (Auto) 83.7 H, Lymph % (Auto) 7.0 L, [place] % (Auto) 8.3, Eos % (Auto) 0.2, Baso % (Auto) 0.2, Absolute Neuts (auto) 4.6, Absolute Lymphs (auto) 0.38 L, Nucleated RBC % 0, PT 19.1 H, INR 1.6, Sodium 140, Potassium 3.7, Chloride 109 H, Carbon Dioxide 25.0, Anion Gap 6, BUN 34 H, Creatinine 1.14, Estim Creat Clear Calc 72.55, Est GFR (MDRD) Af Amer 81, Est GFR (MDRD) Non-Af 67, BUN/Creatinine Ratio 29.8 H, Glucose 102, Calcium 8.6, Troponin I High Sens 89 H, B-Natriuretic Peptide 470.6 H 09/04/24 00:35: Specimen Type GLYNN, Sample Site Not entered, O2 % 3.0, VBG pH 7.40, VBG pO2 48 H, VBG HCO3 25, VBG Total CO2 26, VBG O2 Sat (Calc) 84 H, VBG Base Excess 0, POC Mix VBG pCO2 Pt Tmp 40.2 L, O2 Delivery Device Cannula 09/04/24 02:25: Troponin I High Sens 120 H 09/04/24 08:26: POC Glucose 157 H 09/04/24 11:37: POC Glucose 149 H Charges/Coding Visit Charges Inpatient E&M: 78518 Subs Hosp L2
[2024-09-04] MEDS: Ceftriaxone 2 GM in 0.9% Normal Saline (50mL MB+) 50 ML IV (17:16)
[2024-09-04] MEDS: 0.9% Normal Saline (100mL Bag) 100 ML 15 ML IV (17:16)
[2024-09-04] MEDS: guaiFENesin/D-Methorphan TAB.SR.12H 2 TABLET PO ×2 (17:26→23:05)
[2024-09-04] MEDS: Doxycycline 100 MG CAPSULE PO (17:26)
[2024-09-04 17:34] LABS: Allen Test Positive; Base Excess -2 mmol/L (-2 to +2); Bicarbonate 22.6 mmol/L (22-26); Blood Gas Specimen Type ART; Comment airvo 45 lpm. 40%; Mode Not entered; O2 Delivery Device HFNC; PO2 46 mmHG (75-100); SITE R Radial; SO2 82 % (95-99); Total Carbon Dioxide 24 mmol/L; pCO2 35.5 mmHg (35-45); pH 7.41 (7.35-7.45)
[2024-09-04 17:50] LABS: Bedside Glucose 159 mg/dL (74-106)
[2024-09-04] MEDS: Ipratropium/Albuterol Sulfate 3 ML AMPUL.NEB INHALATION (19:41)
[2024-09-04] MEDS: Insulin Glargine-YFGN 100 UNIT/ML Pen 15 UNIT SC (23:03)
[2024-09-04] MEDS: Gabapentin 300 MG Capsule PO (23:04)
[2024-09-04] MEDS: Mirtazapine 15 MG Tablet 7.5 MG PO (23:21)
[2024-09-04] MEDS: Atorvastatin Calcium 40 MG Tablet PO (23:23)
[2024-09-05] VITALS (17 sets, daily range): BP systolic 91–130; BP diastolic 35–68; PULSE 64–83; RESP 16–30; TEMP 35.9–36.9; O2SAT 93–100
[2024-09-05] MEDS: 0.9% Normal Saline (100mL Bag) 100 ML 15 ML IV (01:29)
[2024-09-05 02:54] LABS: Bedside Glucose 239 mg/dL (74-106)
[2024-09-05] MEDS: Insulin Lispro 100 UNIT/ML INSULN.PEN SC ×4 (06:15→23:06)
[2024-09-05 07:18] LABS: Bedside Glucose 264 mg/dL (74-106)
[2024-09-05] MEDS: Ipratropium/Albuterol Sulfate 3 ML AMPUL.NEB INHALATION ×4 (07:34→20:25)
[2024-09-05 07:43] LABS: International Normalized Ratio 1.7; Prothrombin Time (Protime)PT. 20.3 SECONDS (11.7-14.9)
[2024-09-05 07:46] LABS: Absolute Lymphocyte Count 0.45 X10^3/uL (0.83-4.51); Absolute Neutrophil Count 2.2 X10^3/uL (2.0-7.7); Hemoglobin 9.9 g/dL (13.0-16.5); Lymphocyte # 0.45 X10^3/ul (0.83-4.51); Lymphocyte % 16.1 % (19-41); Mean Corp Hgb Conc 31.9 g/dL (32-36); Mean Corpuscular Hgb 30.5 pg (27.0-32.0); Mean Corpuscular Volume 95.4 fL (80-94); Mean Platelet Vol. 11.1 fl (6.2-12.0); Monocyte# 0.12 X10^3/uL; Monocyte% 4.3 % (0-10); NRBC Flagged by Analyzer 0 % (0-5); Neutrophil # 2.21 X10^3/uL (2.7-7.7); Neutrophil % 79.2 % (47-70); POSITIVE DIFFERENTIAL YES; Platelet Count 119 K/mm3 (150-450); RBC Distribution Width CV 14.5 % (11.6-14.6); RBC Distribution Width SD 50.9 fl (35.1-43.9); Red Blood Count 3.25 M/mm3 (4.6-6.2); White Blood Count 2.8 K/mm3 (4.4-11.0)
[2024-09-05 07:57] LABS: Differential Indicated SCAN CRITERIA MET
[2024-09-05 08:24] LABS: Anion Gap 4 (5-15); BUN 43 mg/dL (7-18); BUN/Creat Ratio 36.1 RATIO (10-20); Calcium,Total 8.5 mg/dL (8.5-10.1); Chloride 108 mmol/L (98-107); Creatinine, Serum 1.19 mg/dL (0.70-1.30); EST Glomerular Filtration Rate 64 mL/min (>60); Est Glom Filt Rate - Afr Amer 77 mL/min (>60); Estimated Creatinine Clearance 67.04 ml/min; Glucose 272 mg/dL (74-106); Sodium Level 137 mmol/L (136-145); Troponin-I HS 53 pg/mL (3.0-78.0)
--- NOTE | 2024-09-05 09:10 | PN.HOSP_ITS ---
Reason for Visit Reason for Visit: Diagnoses Old myocardial infarction (09/04/24) Heart failure, unspecified (09/04/24) Influenza due to other identified influenza virus with other respiratory manifestations (09/04/24) Adult failure to thrive (09/04/24) Presence of prosthetic heart valve (09/04/24) Objective Data Objective Data Vital Signs: Vital Signs Temp Pulse Resp BP Pulse Ox O2 Del Method O2 Flow Rate 97.8 F 74 24 H 104/47 L 96 Airvo 45 09/05/24 04:00 09/05/24 07:35 09/05/24 07:35 09/05/24 04:00 09/05/24 07:35 09/05/24 04:00 09/05/24 04:00 FiO2 28 09/05/24 07:35 Oxygen Flow Rate (L/min) 45 Oxygen Delivery Method Airvo Weight: 217 lb 6.012 oz Body Mass Index (BMI) 30.4 Intake & Output: Intake and Output for Last 24 Hours 09/03/24 09/04/24 09/05/24 23:59 23:59 23:59 Intake Total 1630 / 1730 100 / 100 Output Total 600 / 600 Balance 1630 / 1430 -500 / -500 Lab / Micro Data 09/05/24 06:30 09/05/24 06:30 Labs: Laboratory Results - last 24 hr 09/04/24 11:37: POC Glucose 149 H 09/04/24 16:34: Lactic Acid 1.0 09/04/24 17:13: POC Glucose 159 H 09/04/24 22:56: POC Glucose 239 H 09/05/24 06:11: POC Glucose 264 H 09/05/24 06:30: WBC 2.8 L, RBC 3.25 L, Hgb 9.9 L, Hct 31.0 L, MCV 95.4 H, MCH 30.5, MCHC 31.9 L, RDW Std Deviation 50.9 H, RDW Coeff of Estrada 14.5, Plt Count 119 L, MPV 11.1, Immature Gran % (Auto) 0.400, Neut % (Auto) 79.2 H, Lymph % (Auto) 16.1 L, [place] % (Auto) 4.3, Eos % (Auto) 0.0, Baso % (Auto) 0.0, Absolute Neuts (auto) 2.2, Absolute Lymphs (auto) 0.45 L, Nucleated RBC % 0, PT 20.3 H, INR 1.7, Sodium 137, Potassium 4.0, Chloride 108 H, Carbon Dioxide 25.0, Anion Gap 4 L, BUN 43 H, Creatinine 1.19, Estim Creat Clear Calc 67.04, Est GFR (MDRD) Af Amer 77, Est GFR (MDRD) Non-Af 64, BUN/Creatinine Ratio 36.1 H, Glucose 272 H , Calcium 8.5, Troponin I High Sens 53 Micro: Microbiology 09/04/24 23:30 Urine, Clean Catch Streptococcus pneumoniae Antigen (M - Final 09/04/24 23:30 Urine, Clean Catch Legionella Antigen - Final 09/04/24 00:21 Mucosa - Nose SARS-CoV-2, Influenza & RSV (PCR) - Final Influenzae A ABG Data ABG results: ABG 09/04/24 17:29 Specimen Type ART Sample Site R Radial pH 7.41 Bicarbonate Actual 22.6 Total CO2 24 Base Excess -2 O2 Saturation 82 L O2 % 40.0 ABG pCO2 35.5 ABG pO2 46 L Caesar Test Positive O2 Delivery Device HFNC Vent Mode Not entered Clinical Comments airvo 45 lpm. 40% Radiography Diagnostic Testing: Radiology Impression Echocardiogram 09/04/24 04:21 Interpretation Summary Estimated LVEF 40 to 45%. Inferior septal and posterior hypokinesis. Stage I diastolic dysfunction. The left atrium is severely enlarged. Mild (1+) mitral valve insufficiency. Moderate (2+) tricuspid valve insufficiency. Right ventricular systolic pressure estimated to be 46 mmHg. Prosthetic aortic valve mean peak gradient 17 mmHg. Trace aortic valve regurgitation. Technically difficult study with suboptimal apical images. Ordering Physician: Feliciano Pace Referring Physician: Saurabh Heranndez Chi Performed By: Shelbie Lee, JOCELYN, RVT Chest X-Ray 09/04/24 15:53 IMPRESSION: 1. Moderate cardiomegaly 2. Large hiatal hernia Reading Location: [facility] Physical Exam Narrative Seen and examined. Shortness of breath and respiratory distress is better. Seen by skating rink manager. Oxygen tapered down currently on 2 L of oxygen. Was on Airvo last night and continues to high flow oxygen. Physical exam General: Alert, Oriented x3, Cooperative. BMI 30.4 kg/m?. HEENT: Atraumatic, PERRLA, EOMI, Normocephalic Oral: Oral mucosa dry. No Gingival or Mucosal Lesions/ Ulcerations Neck: Supple, No JVD, Negative Carotid Bruits Chest wall/Lungs: Air entry diminished in bilateral lung bases. Wheezing and rhonchi better. Not in respiratory distress. RR 16-20 per a.m. Cardiovascular: Status post CABG scar with unclosed sternotomy with overlying skin graft. Sinus rhythm, Normal S1, Normal S2. Mechanical aortic valve sound. Abdomen: Bowel Sounds Present, Soft, Non Tender, Non-Distended : No dysuria. No renal angle tenderness. No suprapubic tenderness. Extremities: Mild 1+ edema, Capillary Refill Less than 3 Seconds Skin: Right TMA scar has healed and dry. No open ulcer. Musculoskeletal: No Tenderness to Palpation of Joints or Extremities. ROM limited. Decreased mobility Neurological: Cranial nerves II-XII grossly intact, DTR 2+/4. No acute focal neurological deficit. Psych/Mental Status: Flat affect. Assessment & Plan Assessment/Plan (1) Adult failure to thrive: (2) History of mechanical aortic valve replacement: (3) History of non-ST elevation myocardial infarction (NSTEMI): (4) CHF (congestive heart failure): (5) Influenza A: PLAN: Plan 73-year-old gentleman was admitted with shortness of breath, cough and fever for 1 day prior to admission. Denies any chest pain abdominal pain nausea or vomiting. Mild hypoxic 89% on room air 1. Acute dyspnea and acute hypoxic respiratory failure secondary to COPD exacerbation from influenza A infection: Patient is being admitted on monitored bed. On Tamiflu 75 mg twice daily. Droplet precaution. Maintain saturation more than 90%. Patient in mild respiratory distress with put on Airvo 45% FiO2.. Chest x-ray initially reviewed and no significant change in previous x-ray. It shows lucencies right lower lung zone probably from bowel in the ventral hernia and superior anterior abdominal wall. 09/05: Lactic acid 1.0. No hypotension. Sepsis ruled out. Discussed with the skating rink manager. Patient is tapered off Airvo. On 2 L of oxygen. Patient respiratory status got better with Airvo, Solu-Medrol and bronchodilator. With suspicion for secondary bacterial infection therefore antibiotic ceftriaxone discontinued. Prednisone 40 mg daily from tomorrow a.m. 2. Acute on chronic HFpEF/congestive heart failure? Echo in October 2022 Interpretation Summary The estimated ejection fraction is 40-45 %. Normal-appearing prosthetic aortic valve In comparison to previous echo in September 22, 2021 Improvement in LV systolic function. 09/04: BNP elevated 470. Started on Lasix 20 mg IV twice daily as blood pressure is soft, systolic about 118 mmHg. Repeat echo shows EF 40 to 45% mild MR, 2+ TR RVSP 46 mmHg. Prosthetic aortic valve mean gradient 17 mmHg, trace AI. Technically difficult study. 09/05: Diuretics as per tolerated. Low-dose 20 mg IV twice daily. BP systolic in 110s. 3. Elevated troponin acute on chronic HFpEF?likely secondary to strain from congestive heart failure. On IV furosemide. Heart failure core measures including intake and output, fluid restriction less than 1500 mL, daily weight monitoring, kidney and electrolytes monitoring. Troponin shows 89, 120. 4. History of mechanical valve?on warfarin. INR 1.6 subtherapeutic. Warfarin dose increased. 5. DVT prophylaxis?patient is anticoagulated 6. Failure to thrive patient does come from assisted and would plan to have case management for discharge planning back to facility when improving Microbiology Past 72 Hours 09/04/24 23:30 Urine, Clean Catch Streptococcus pneumoniae Antigen (M - Final 09/04/24 23:30 Urine, Clean Catch Legionella Antigen - Final 09/04/24 00:21 Mucosa - Nose SARS-CoV-2, Influenza & RSV (PCR) - Final Influenzae A Laboratory Results 09/04/24 16:34: Lactic Acid 1.0 09/04/24 17:13: POC Glucose 159 H 09/04/24 17:29: Specimen Type ART, Sample Site R Radial, pH 7.41, Bicarbonate Actual 22.6, Total CO2 24, Base Excess -2, O2 Saturation 82 L, O2 % 40.0, ABG pCO2 35.5, ABG pO2 46 L, Caesar Test Positive, O2 Delivery Device HFNC, Vent Mode Not entered, Clinical Comments airvo 45 lpm. 40% 09/04/24 22:56: POC Glucose 239 H 09/05/24 06:11: POC Glucose 264 H 09/05/24 06:30: WBC 2.8 L, RBC 3.25 L, Hgb 9.9 L, Hct 31.0 L, MCV 95.4 H, MCH 30.5, MCHC 31.9 L, RDW Std Deviation 50.9 H, RDW Coeff of Estrada 14.5, Plt Count 119 L, MPV 11.1, Immature Gran % (Auto) 0.400, Neut % (Auto) 79.2 H, Lymph % (Auto) 16.1 L, [place] % (Auto) 4.3, Eos % (Auto) 0.0, Baso % (Auto) 0.0, Absolute Neuts (auto) 2.2, Absolute Lymphs (auto) 0.45 L, Nucleated RBC % 0, Diff Path Review November, PT 20.3 H, INR 1.7, Sodium 137, Potassium 4.0, Chloride 108 H, Carbon Dioxide 25.0, Anion Gap 4 L, BUN 43 H, Creatinine 1.19, Estim Creat Clear Calc 67.04, Est GFR (MDRD) Af Amer 77, Est GFR (MDRD) Non-Af 64, BUN/Creatinine Ratio 36.1 H, Glucose 272 H, Calcium 8.5, Troponin I High Sens 53 09/05/24 11:40: POC Glucose 307 H Charges/Coding Visit Charges Inpatient E&M: 31397 Subs Hosp L2
[2024-09-05] MEDS: Gabapentin 100 MG Capsule PO (09:47)
[2024-09-05] MEDS: Glucerna Shake 120 ML LIQUID PO ×3 (09:47→16:33)
[2024-09-05] MEDS: Ceftriaxone 2 GM in 0.9% Normal Saline (50mL MB+) 50 ML IV (09:50)
[2024-09-05] MEDS: LINAGLIPTIN 5 MG TABLET PO (09:52)
[2024-09-05] MEDS: Cholecalciferol (VIT D3) 25 MCG TABLET (1,000 UNITS) PO (09:52)
[2024-09-05] MEDS: Pantoprazole Sodium 40 MG Tablet PO (09:52)
[2024-09-05] MEDS: Ascorbic Acid 500 MG Tablet PO ×2 (09:52→23:09)
[2024-09-05] MEDS: Doxycycline 100 MG CAPSULE PO ×2 (09:53→23:09)
[2024-09-05] MEDS: Multivitamins,Ther W-Minerals Tablet 1 TABLET PO (09:53)
[2024-09-05] MEDS: DOXEPIN HCL 50 MG CAPSULE PO (09:53)
[2024-09-05] MEDS: guaiFENesin/D-Methorphan TAB.SR.12H 2 TABLET PO ×2 (09:53→23:09)
[2024-09-05] MEDS: Oseltamivir Phosphate 75 MG Capsule PO ×2 (09:53→23:09)
[2024-09-05] MEDS: Furosemide 20 MG/2 ML VIAL IV ×2 (09:54→17:44)
--- NOTE | 2024-09-05 10:01 | EX.PCM.CONCC ---
Assessment & Plan Assessment/Plan (1) Influenza A: PLAN: Plan RECOMMENDATIONS: 1. Supplemental oxygen, if needed, to maintain saturations at or above 90%. 2. Continue Tamiflu to complete treatment course. 3. Continue scheduled bronchodilators. 4. Continue diuresis as tolerated by hemodynamics and renal function. 5. Continue Coumadin per home regimen. 6. Antimicrobials can be discontinued from my perspective. 7. Perform walking oximetry study prior to consideration for discharge home. 8. Outpatient follow-up for evaluation of his COPD can be offered to the patient. 9. Will sign off at this time. Please call with any additional questions. IMPRESSIONS: 1. Shortness of breath with hypoxemia Likely multifactorial in etiology with underlying congestive heart failure and possible COPD in a state of exacerbation due to influenza A, contributing. While the patient was initially maintained on heated high flow oxygen, he has been weaned to room air as of this morning. I agree with continuing scheduled bronchodilators and Tamiflu. I have a low index of suspicion for an underlying secondary bacterial pneumonia. Therefore, antibiotics can be discontinued from my perspective. I would recommend ongoing diuresis as tolerated by hemodynamics and renal function. The patient does have a longstanding tobacco abuse history and would therefore benefit from obtaining baseline PFTs on an outpatient basis. Recommend performing walking oximetry study prior to consideration for discharge home. 2. Chronic tobacco dependency/heart failure with reduced ejection fraction/pulmonary hypertension/questionable COPD Complicates care, management, recovery and prognosis. Consider outpatient pulmonary follow-up after discharge. Continue home medications as indicated. This note was generated with [employer] dictation software. It may contain incorrect words, spelling, and punctuation that were not noted in checking the note before signing. HPI Consult Data Date of Consult: 09/05/24 HPI Narrative Reason for Consultation: Influenza HPI Narrative: The patient is a 73-year-old male, with a history as outlined below, who presented to the emergency department on September 04 with shortness of breath and fever. The patient has a history of chronic foot ulcers, coronary artery disease, heart failure with reduced ejection fraction, diabetes mellitus and longstanding tobacco abuse history. He has never been evaluated by a water quality analyst, nor does he utilize supplemental oxygen or inhalers at his baseline. On presentation to the emergency department, the patient was documented to be febrile, tachycardic and tachypneic. Laboratory evaluation was notable for a normal white blood cell count. Chemistry profile was unremarkable. Lactate was within normal limits. Troponin and BNP were mildly elevated. Influenza A PCR was found to be positive. Blood cultures were obtained. Chest x-ray was notable for cardiomegaly and a large hiatal hernia. The patient was placed on Tamiflu along with bronchodilators and admitted to the progressive care unit for further management. This morning, upon my evaluation, the patient was noted to be maintaining appropriate oxygen saturations on room air. He did report interval improvement in his breathing quality. [facility] Medical History CHF (congestive heart failure) Anemia Non-pressure chronic ulcer of right heel and midfoot with fat layer exposed Non-pressure chronic ulcer of other part of right foot with bone involvement without evidence of necrosis Non-pressure chronic ulcer of right heel and midfoot with necrosis of muscle Non-pressure chronic ulcer of other part of right foot with muscle involvement without evidence of necrosis Non-pressure chronic ulcer of other part of right lower leg with fat layer exposed Diabetes mellitus PVD (peripheral vascular disease) Anemia Diabetic foot infection PAOD (peripheral arterial occlusive disease) Trigger finger of both hands Amputation of second toe, right, traumatic Aftercare following surgery of the circulatory system Anemia Hyperbilirubinemia Nicotine dependence, cigarettes, uncomplicated Atherosclerosis of [place] arteries of right leg with ulceration of other part of foot Non-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 Peripheral vascular occlusive disease Diabetic ulcer of toe of left foot associated with type 2 diabetes mellitus Ulcer of toe of left foot Atherosclerosis of [place] arteries of left leg with ulceration of other part of foot Wears glasses Alcohol use Insulin dependent diabetes mellitus Back pain Syncope Dietary restriction Cardiology follow-up encounter History of rheumatic fever ZOFIA (acute kidney injury) Recurrent right pleural effusion Osteomyelitis of toe of right foot Non-pressure chronic ulcer of other part of left foot with fat layer exposed Acute exacerbation of CHF (congestive heart failure) Anticoagulant long-term use Acute and chronic respiratory failure with hypercapnia Encephalopathy acute Acute hypercapnic respiratory failure Atherosclerosis of lower extremity with ulceration COPD (chronic obstructive pulmonary disease) Inability to walk Adult failure to thrive Smoker Congestive heart failure Sternal wound infection 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 MSSA (methicillin susceptible Staphylococcus aureus) infection History of non-ST elevation myocardial infarction (NSTEMI) (04/23/20) 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 use of 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 Chronic combined systolic and diastolic CHF (congestive heart failure) Type 2 diabetes mellitus Atherosclerosis of coronary artery without angina pectoris Nicotine dependence Ischemic cardiomyopathy Secondary pulmonary arterial hypertension Essential (primary) hypertension Nonrheumatic aortic (valve) stenosis 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 Osteomyelitis Diabetic foot infection Bleeding disorder Ulcer of right foot with fat layer exposed COPD (chronic obstructive pulmonary disease) Hyperlipidemia DVT (deep venous thrombosis) GERD (gastroesophageal reflux disease) Home Medications ?Medication ?Instructions ?Recorded ?Last Taken ?Type atorvastatin 40 mg tablet 40 mg PO QHS cholesterol 11/12/20 11/03/23 History ferrous sulfate 325 mg (65 mg 325 mg PO DAILY 10/29/22 11/02/23 History iron) tablet furosemide 40 mg tablet 40 mg PO DAILY #0 tabs 11/12/22 11/02/23 Rx cyclobenzaprine 10 mg tablet 10 mg PO Q8H PRN Muscle Pain 12/11/22 11/02/23 History insulin lispro 100 unit/mL 5 unit subcut ACHS 12/11/22 11/03/23 History subcutaneous pen (Humalog KwikPen (U-100) Insulin) pantoprazole 40 mg tablet,delayed 40 mg PO QDAY 10/04/23 11/02/23 History release doxepin 50 mg capsule 50 mg PO DAILY 10/28/23 11/02/23 History gabapentin 100 mg capsule 100 mg PO DAILY pain 10/28/23 08/07/24 History insulin glargine-yfgn 100 unit/mL 15 unit subcut QHS 10/28/23 11/03/23 History (3 mL) subcutaneous pen linagliptin 5 mg tablet (Tradjenta) 5 mg PO DAILY 10/28/23 11/03/23 History metoprolol succinate 25 mg 25 mg PO DAILY bp 10/28/23 08/07/24 History tablet,extended release 24 hr mirtazapine 7.5 mg tablet 7.5 mg PO QHS 10/28/23 11/03/23 History osovdehc-sj-fdeup 300 mcg-K 60 1 tab PO DAILY 10/28/23 11/02/23 History mcg-lycop 600 mcg-lutein 300 mcg tablet (Centrum Silver Men) cholecalciferol (vitamin D3) 25 25 mcg PO DAILY 10/31/23 11/02/23 History mcg (1,000 unit) capsule arginine 7 gram-glutam 7 1 packet PO BIDCM #0 ea 03/02/24 Unknown Rx gram-CaHMB 1.5 hxnp-aaxox-go-min oral pwd pkt (Renny (with collagen)) albuterol sulfate 2.5 mg/3 mL 2.5 mg inhalation Q4H PRN 07/19/24 Unknown History (0.083 %) solution for nebulization shortness of breath or wheezing acetaminophen 500 mg tablet 1,000 mg PO Q8H PRN pain 08/06/24 Unknown History gabapentin 300 mg capsule 300 mg PO QHS 08/06/24 Unknown History insulin lispro 100 unit/mL 1 sliding scale dose subcut ACHS 08/06/24 Unknown History subcutaneous pen (Humalog KwikPen (U-100) Insulin) ascorbic acid (vitamin C) 500 mg 500 mg PO BID #60 tabs 08/15/24 Unknown Rx tablet losartan 50 mg tablet 50 mg PO DAILY #0 tabs 08/15/24 Unknown Rx sennosides 8.6 mg-docusate sodium 2 tab PO BID PRN PRN Constipation 08/15/24 Unknown Rx 50 mg tablet (Stimulant Laxative #0 tabs Plus) warfarin 4 mg tablet (Jantoven) 4 mg PO DINNER #0 tabs 08/15/24 Unknown Rx Allergy/AdvReac Type Severity Reaction Status Date / Time No Known Allergies Allergy Verified 08/06/24 09:02 Family History Mother Diabetes Heart disease Father Diabetes Surgical History History of amputation History of incision and drainage (09/22/20) History of angioplasty of peripheral vessel (01/02/10) History of lumbar laminectomy History of femoropopliteal bypass (2008) H/O coronary artery bypass surgery (05/01/20) History of mechanical aortic valve replacement History of left heart catheterization (04/23/20) Social History (Updated 09/04/24 @ 06:31 by Rimma Morley) household members: significant other housing: skilled nursing Smoking Status: Light Smoker (<10/day) alcohol intake: never substance use type: does not use caffeine: No ROS ROS Narrative 10 systems were reviewed with pertinent positives as noted in the HPI above. Physical Exam Const alert and no apparent distress General Appearance: cooperative HEENT normocephalic, head/scalp atraumatic and moist oral mucous membranes Eyes PERRL, EOMs intact bilaterally and conjunctivae normal Neck supple General: trachea midline Chest Chest Narrative: Large ventral hernia Resp Auscultation: diminished lung sounds; Negative for rales, rhonchi or wheezes Cardio regular rate and regular rhythm GI normal to inspection, nondistended, normoactive bowel sounds Extremity General Extremity: edema; Negative for clubbing Skin no rashes or lesions noted Neuro CN's II-XII intact bilaterally, moves all extremities and no focal motor deficits Psych cooperative and affect normal Lab / Micro Data 09/05/24 06:30 09/05/24 06:30 Labs: Laboratory Results - last 24 hr 09/04/24 11:37: POC Glucose 149 H 09/04/24 16:34: Lactic Acid 1.0 09/04/24 17:13: POC Glucose 159 H 09/04/24 22:56: POC Glucose 239 H 09/05/24 06:11: POC Glucose 264 H 09/05/24 06:30: WBC 2.8 L, RBC 3.25 L, Hgb 9.9 L, Hct 31.0 L, MCV 95.4 H, MCH 30.5, MCHC 31.9 L, RDW Std Deviation 50.9 H, RDW Coeff of Estrada 14.5, Plt Count 119 L, MPV 11.1, Immature Gran % (Auto) 0.400, Neut % (Auto) 79.2 H, Lymph % (Auto) 16.1 L, [place] % (Auto) 4.3, Eos % (Auto) 0.0, Baso % (Auto) 0.0, Absolute Neuts (auto) 2.2, Absolute Lymphs (auto) 0.45 L, Nucleated RBC % 0, Diff Path Review November foll, PT 20.3 H, INR 1.7, Sodium 137, Potassium 4.0, Chloride 108 H, Carbon Dioxide 25.0, Anion Gap 4 L, BUN 43 H, Creatinine 1.19, Estim Creat Clear Calc 67.04, Est GFR (MDRD) Af Amer 77, Est GFR (MDRD) Non-Af 64, BUN/Creatinine Ratio 36.1 H, Glucose 272 H, Calcium 8.5, Troponin I High Sens 53 Micro: Microbiology 09/04/24 23:30 Urine, Clean Catch Streptococcus pneumoniae Antigen (M - Final 09/04/24 23:30 Urine, Clean Catch Legionella Antigen - Final ABG Data ABG results: ABG 09/04/24 17:29 Specimen Type ART Sample Site R Radial pH 7.41 Bicarbonate Actual 22.6 Total CO2 24 Base Excess -2 O2 Saturation 82 L O2 % 40.0 ABG pCO2 35.5 ABG pO2 46 L Caesar Test Positive O2 Delivery Device HFNC Vent Mode Not entered Clinical Comments airvo 45 lpm. 40% Imaging Radiology Impression Echocardiogram 09/04/24 04:21 Interpretation Summary Estimated LVEF 40 to 45%. Inferior septal and posterior hypokinesis. Stage I diastolic dysfunction. The left atrium is severely enlarged. Mild (1+) mitral valve insufficiency. Moderate (2+) tricuspid valve insufficiency. Right ventricular systolic pressure estimated to be 46 mmHg. Prosthetic aortic valve mean peak gradient 17 mmHg. Trace aortic valve regurgitation. Technically difficult study with suboptimal apical images. Ordering Physician: Feliciano Pace Referring Physician: Saurabh Hernandez Chi Performed By: Shelbie Lee, RDCS, RVT Chest X-Ray 09/04/24 15:53 IMPRESSION: 1. Moderate cardiomegaly 2. Large hiatal hernia Reading Location: [facility] Charges/Coding Visit Charges Inpatient E&M: 89203 Init Hosp L2
[2024-09-05] MEDS: Metoprolol(XL)Succ 25 MG Tablet PO (11:39)
[2024-09-05] MEDS: Ferrous Sulfate 325 MG Tablet PO (11:41)
[2024-09-05 12:37] LABS: Bedside Glucose 307 mg/dL (74-106)
[2024-09-05 16:23] LABS: Magnesium 2.2 mg/dL (1.6-2.6); Phosphorus 2.8 mg/dL (2.5-4.9)
[2024-09-05 16:53] LABS: Bedside Glucose 417 mg/dL (74-106)
[2024-09-05] MEDS: Insulin Glargine-YFGN 100 UNIT/ML Pen 15 UNIT SC (23:07)
[2024-09-05] MEDS: Mirtazapine 15 MG Tablet 7.5 MG PO (23:09)
[2024-09-05] MEDS: Gabapentin 300 MG Capsule PO (23:09)
[2024-09-05] MEDS: Atorvastatin Calcium 40 MG Tablet PO (23:09)
[2024-09-06] VITALS (9 sets, daily range): BP systolic 108–132; BP diastolic 52–61; PULSE 69–81; RESP 18–28; TEMP 36.4–36.5; O2SAT 96–100
[2024-09-06] MEDS: Ipratropium/Albuterol Sulfate 3 ML AMPUL.NEB INHALATION ×4 (00:05→14:57)
[2024-09-06] MEDS: Insulin Lispro 100 UNIT/ML INSULN.PEN SC ×2 (06:44→11:53)
[2024-09-06 07:07] LABS: Bedside Glucose 324 mg/dL (74-106)
[2024-09-06 08:23] LABS: Pathologist Review Reviewed
[2024-09-06 10:13] LABS: Prothrombin Time (Protime)PT. 23.4 SECONDS (11.7-14.9)
--- NOTE | 2024-09-06 10:24 | TREXTCAR_ITS ---
Diet Diet Order/Speech Therapy: 09/04/24 15:28 Diet: Consistent Carb - Calorie Controlled Food consistency:: Regular Liquid Consistency:: Regular/Thin Type of Dietary Supplement:: Renny Diet Comments: Renny w/lunch and dinner How many daily calories?: 2000 calorie Routine Orders/Code Status Suppository Type: Dulcolax 10mg Suppository Frequency: Daily PRN DC O2, CPAP, BIPAP needs Home O2 Discharge instructions: Yes Type of respiratory needs?: Oxygen Oxygen frequency: With Ambulation Oxygen liters per minute during Ambulation: 2 L/m Wound(s) rt heel: Wound Type: Neuropathic/Diabetic Foot Ulcer Dressing Change: AntiMicrobial (Aquacel AG, etc) rt lateral foot: Wound Type: Neuropathic/Diabetic Foot Ulcer Dressing Change: hydrogel with dry dressing rt proximal top of foot: Wound Type: Neuropathic/Diabetic Foot Ulcer right medial foot: Wound Type: calloused over wound Dressing Change: dry dressing Therapies Extremity Affected:: Bilateral Lower Physical Therapy: Eval and Treat Occupational Therapy: Eval and Treat Speech Therapy: Eval and Treat Problem/Diagnosis (1) Adult failure to thrive: Status: Acute Code(s): R62.7 - Adult failure to thrive (2) History of mechanical aortic valve replacement: Status: Chronic Code(s): Z95.2 - Presence of prosthetic heart valve Comment: AVR / [address] [facility] Mechanical Valve 05/01/2020 (3) History of non-ST elevation myocardial infarction (NSTEMI): Status: Resolved Code(s): I25.2 - Old myocardial infarction Comment: 02/25/2020, 04/23/2020 (4) CHF (congestive heart failure): Status: Acute Code(s): I50.9 - Heart failure, unspecified (5) Influenza A: Status: Acute Code(s): J10.1 - Influenza due to other identified influenza virus with other respiratory manifestations Plan 73-year-old gentleman was admitted with shortness of breath, cough and fever for 1 day prior to admission. Denies any chest pain abdominal pain nausea or vomiting. Mild hypoxic 89% on room air 1. Acute dyspnea and acute hypoxic respiratory failure secondary to COPD exacerbation from influenza A infection: Patient is being admitted on monitored bed. On Tamiflu 75 mg twice daily. Droplet precaution. Maintain saturation more than 90%. Patient in mild respiratory distress with put on Airvo 45% FiO2.. Chest x-ray initially reviewed and no significant change in previous x-ray. It shows lucencies right lower lung zone probably from bowel in the ventral hernia and superior anterior abdominal wall. 09/05: Lactic acid 1.0. No hypotension. Sepsis ruled out. Discussed with the renewable energy consultant. Patient is tapered off Airvo. On 2 L of oxygen. Patient respiratory status got better with Airvo, Solu-Medrol and bronchodilator. With suspicion for secondary bacterial infection therefore antibiotic ceftriaxone discontinued. Prednisone 40 mg daily from tomorrow a.m. 2. Acute on chronic HFpEF/congestive heart failure? Echo in October 2022 Interpretation Summary The estimated ejection fraction is 40-45 %. Normal-appearing prosthetic aortic valve In comparison to previous echo in September 22, 2021 Improvement in LV systolic function. 09/04: BNP elevated 470. Started on Lasix 20 mg IV twice daily as blood pressure is soft, systolic about 118 mmHg. Repeat echo shows EF 40 to 45% mild MR, 2+ TR RVSP 46 mmHg. Prosthetic aortic valve mean gradient 17 mmHg, trace AI. Technically difficult study. 09/05: Diuretics as per tolerated. Low-dose 20 mg IV twice daily. BP systolic in 110s. 3. Elevated troponin acute on chronic HFpEF?likely secondary to strain from congestive heart failure. On IV furosemide. Heart failure core measures including intake and output, fluid restriction less than 1500 mL, daily weight monitoring, kidney and electrolytes monitoring. Troponin shows 89, 120. 4. History of mechanical valve?on warfarin. INR 1.6 subtherapeutic. Warfarin dose increased. 5. DVT prophylaxis?patient is anticoagulated 6. Failure to thrive patient does come from detention and would plan to have case management for discharge planning back to facility when improving Microbiology Past 72 Hours 09/04/24 23:30 Urine, Clean Catch Streptococcus pneumoniae Antigen (M - Final 09/04/24 23:30 Urine, Clean Catch Legionella Antigen - Final 09/04/24 00:21 Mucosa - Nose SARS-CoV-2, Influenza & RSV (PCR) - Final Influenzae A Laboratory Results 09/04/24 16:34: Lactic Acid 1.0 09/04/24 17:13: POC Glucose 159 H 09/04/24 17:29: Specimen Type ART, Sample Site R Radial, pH 7.41, Bicarbonate Actual 22.6, Total CO2 24, Base Excess -2, O2 Saturation 82 L, O2 % 40.0, ABG pCO2 35.5, ABG pO2 46 L, Caesar Test Positive, O2 Delivery Device HFNC, Vent Mode Not entered, Clinical Comments airvo 45 lpm. 40% 09/04/24 22:56: POC Glucose 239 H 09/05/24 06:11: POC Glucose 264 H 09/05/24 06:30: WBC 2.8 L, RBC 3.25 L, Hgb 9.9 L, Hct 31.0 L, MCV 95.4 H, MCH 30.5, MCHC 31.9 L, RDW Std Deviation 50.9 H, RDW Coeff of Estrada 14.5, Plt Count 119 L, MPV 11.1, Immature Gran % (Auto) 0.400, Neut % (Auto) 79.2 H, Lymph % (Auto) 16.1 L, Garrett % (Auto) 4.3, Eos % (Auto) 0.0, Baso % (Auto) 0.0, Absolute Neuts (auto) 2.2, Absolute Lymphs (auto) 0.45 L, Nucleated RBC % 0, Diff Path Review November, PT 20.3 H, INR 1.7, Sodium 137, Potassium 4.0, Chloride 108 H, Carbon Dioxide 25.0, Anion Gap 4 L, BUN 43 H, Creatinine 1.19, Estim Creat Clear Calc 67.04, Est GFR (MDRD) Af Amer 77, Est GFR (MDRD) Non-Af 64, BUN/Creatinine Ratio 36.1 H, Glucose 272 H, Calcium 8.5, Troponin I High Sens 53 09/05/24 11:40: POC Glucose 307 H Allergies/Procedures Done in Hospital Allergies No Known Allergies Allergy (Verified 08/06/24 09:02) Type of Care/Length of Stay Estimated LOS: More Than 30 Days Type of Care Needed: Intermediate Rehab Potential: Good Prognosis: Good Additional Orders/Day of Discharge Day of Discharge: 09/06/24 Dietary and Speech Recommendations Dietitian Recommendations/Changes: Will adjust diet to 2000kcal CCD- no added sodium diet to manage medical conditions. Continue Renny BID; will move from medpass to w/meals to promote wound healing. Will order 120mL Glucerna TID with medpass to provide supplemental energy. Discharge Plan Admission Admit Date/Time: 09/04/24 04:17 Attending Provider: Kartik Avila Primary Care Provider: Saurabh Hernandez Chi Consulting Providers: Feliciano Pace; Trent Murillo; Cliff Camp; Joshua Jorgensen; Wetson Sutton; Jose English; Antolin Jean; Asad Merlos; Dotty Patel; Sami Donis; Da Iqbal; Rusty Washburn; Sara Cartagena; Sanjeev Hansen; Stacy Islas; Garry,Adonay; Luis Oseguera; Darian Bernal; Zachary Vallejo; Edson Odell; Montse Ambrosio; Woody Vital; Silas Ellsworth; Luis Montoya Discharge Orders/Prescriptions Prescriptions: New ipratropium-albuterol 0.5 mg-3 mg(2.5 mg base)/3 mL Solution For Nebulization 3 ml inhalation Q4HWA.RT Qty: 0 0RF oseltamivir 75 mg Capsule 75 mg PO BID Qty: 0 0RF Rx Instructions: 5 more doses starting from evening today. warfarin 5 mg tablet 5 mg PO DAILY Qty: 30 0RF Rx Instructions: Keep the INR between 2.5-3.5 Continued pantoprazole 40 mg tablet,delayed release (DR/EC) 40 mg PO QDAY cholecalciferol (vitamin D3) 25 mcg (1,000 unit) capsule 25 mcg PO DAILY albuterol sulfate 2.5 mg /3 mL (0.083 %) solution for nebulization 2.5 mg inhalation Q4H PRN (Reason: shortness of breath or wheezing) atorvastatin 40 mg Tablet 40 mg PO QHS ferrous sulfate 325 mg (65 mg iron) tablet 325 mg PO DAILY furosemide 40 mg Tablet 40 mg PO DAILY Qty: 0 0RF cyclobenzaprine 10 mg Tablet 10 mg PO Q8H PRN (Reason: Muscle Pain) insulin lispro [Humalog KwikPen Insulin] 100 unit/mL Insulin Pen 5 unit SUBCUT ACHS Rx Instructions: set 5 u in addition to SLIDING SCALE Centrum Silver Men [phone] mcg tablet 1 tab PO DAILY mirtazapine 7.5 mg tablet 7.5 mg PO QHS gabapentin 100 mg capsule 100 mg PO DAILY metoprolol succinate 25 mg tablet extended release 24 hr 25 mg PO DAILY Tradjenta 5 mg tablet 5 mg PO DAILY doxepin 50 mg capsule 50 mg PO DAILY insulin glargine-yfgn 100 unit/mL (3 mL) Insulin Pen 15 unit subcut QHS Renny (with collagen) 7-7-1.5 gram Powder In Packet 1 packet PO BIDCM Qty: 0 0RF acetaminophen 500 mg tablet 1,000 mg PO Q8H PRN (Reason: pain) gabapentin 300 mg capsule 300 mg PO QHS insulin lispro [Humalog KwikPen Insulin] 100 unit/mL Insulin Pen 1 sliding scale dose subcut ACHS Protocol: 3. Sliding Scale Insulin Med Dosing Condition: 150-189 mg/dl = 1 unit Condition: 190-229 mg/dl = 2 units Condition: 230-269 mg/dl = 3 units Condition: 270-309 mg/dl = 4 units Condition: 310-349 mg/dl = 5 units Condition: 350-399 mg/dl = 6 units Condition: 400-449 mg/dl = 7 units Condition: Greater than 449 call physician Protocol Text: - Use for Total Daily Dose of Insulin 37-55 units - Obsese, infected, or steroid patients MEDIUM DOSING ALGORITHIM losartan 50 mg Tablet 50 mg PO DAILY Qty: 0 0RF Rx Instructions: Hold for SBP less than 130 mmHg sennosides-docusate sodium [Stimulant Laxative Plus] 8.6-50 mg Tablet 2 tab PO BID PRN PRN (Reason: Constipation) Qty: 0 0RF ascorbic acid (vitamin C) 500 mg tablet 500 mg PO BID Qty: 60 2RF Discontinued warfarin [Jantoven] 4 mg Tablet 4 mg PO DINNER Qty: 0 0RF Rx Instructions: Keep the INR between 2.5-3.5 Referrals / Follow Up: Saurabh Hernandez Chi, MD [Primary Care Provider] - Weston Sutton DO [Med Staff - Active Staff] - Within 2 Weeks Disposition Disposition (needs filled in before D/C Order can be placed): [facility] Living Facility
[2024-09-06] MEDS: Furosemide 20 MG/2 ML VIAL IV (10:27)
[2024-09-06] MEDS: 0.9% Saline Lock 10 ML Syringe IV (10:27)
[2024-09-06] MEDS: DOXEPIN HCL 50 MG CAPSULE PO (10:29)
[2024-09-06] MEDS: Ascorbic Acid 500 MG Tablet PO (10:29)
[2024-09-06] MEDS: Cholecalciferol (VIT D3) 25 MCG TABLET (1,000 UNITS) PO (10:29)
[2024-09-06] MEDS: Doxycycline 100 MG CAPSULE PO (10:29)
[2024-09-06] MEDS: LINAGLIPTIN 5 MG TABLET PO (10:30)
[2024-09-06] MEDS: Metoprolol(XL)Succ 25 MG Tablet PO (10:30)
[2024-09-06] MEDS: guaiFENesin/D-Methorphan TAB.SR.12H 2 TABLET PO (10:30)
[2024-09-06] MEDS: Oseltamivir Phosphate 75 MG Capsule PO (10:30)
[2024-09-06] MEDS: Glucerna Shake 120 ML LIQUID PO (10:31)
[2024-09-06] MEDS: Multivitamins,Ther W-Minerals Tablet 1 TABLET PO (10:31)
[2024-09-06] MEDS: predniSONE 20 MG Tablet 40 MG PO (10:31)
[2024-09-06] MEDS: Pantoprazole Sodium 40 MG Tablet PO (10:31)
[2024-09-06] MEDS: Gabapentin 100 MG Capsule PO (10:31)
[2024-09-06] MEDS: Ferrous Sulfate 325 MG Tablet PO (11:55)
--- NOTE | 2024-09-06 11:59 | PHA.DC_ITS ---
[facility] has performed discharge medication reconciliation for this patient upon transfer to [facility] The patient's discharge medication list was reviewed for discrepancies and discrepancies were resolved. Medications at Discharge Home Medications atorvastatin 40 mg tablet 40 mg PO QHS cholesterol 11/12/20 ferrous sulfate 325 mg (65 mg iron) tablet 325 mg PO DAILY supplement 10/29/22 furosemide 40 mg tablet 40 mg PO DAILY diuretic #0 tabs 11/12/22 cyclobenzaprine 10 mg tablet 10 mg PO Q8H PRN Muscle Pain 12/11/22 insulin lispro 100 unit/mL subcutaneous pen (Humalog KwikPen (U-100) Insulin) 5 unit subcut ACHS Diabetes 12/11/22 pantoprazole 40 mg tablet,delayed release 40 mg PO QDAY 10/04/23 doxepin 50 mg capsule 50 mg PO DAILY 10/28/23 gabapentin 100 mg capsule 100 mg PO DAILY pain 10/28/23 insulin glargine-yfgn 100 unit/mL (3 mL) subcutaneous pen 15 unit subcut QHS Diabetes 10/28/23 linagliptin 5 mg tablet (Tradjenta) 5 mg PO DAILY 10/28/23 metoprolol succinate 25 mg tablet,extended release 24 hr 25 mg PO DAILY bp 10/28/23 mirtazapine 7.5 mg tablet 7.5 mg PO QHS 10/28/23 [id number]-ux-kbfuf 300 mcg-K 60 mcg-lycop 600 mcg-lutein 300 mcg tablet (Centrum Silver Men) 1 tab PO DAILY 10/28/23 cholecalciferol (vitamin D3) 25 mcg (1,000 unit) capsule 25 mcg PO DAILY supplement 10/31/23 arginine 7 gram-glutam 7 gram-CaHMB 1.5 [id number]-pu-min oral pwd pkt (Renny (with collagen)) 1 packet PO BIDCM #0 ea 03/02/24 albuterol sulfate 2.5 mg/3 mL (0.083 %) solution for nebulization 2.5 mg inhalation Q4H PRN shortness of breath or wheezing 07/19/24 acetaminophen 500 mg tablet 1,000 mg PO Q8H PRN pain 08/06/24 gabapentin 300 mg capsule 300 mg PO QHS pain 08/06/24 insulin lispro 100 unit/mL subcutaneous pen (Humalog KwikPen (U-100) Insulin) 1 sliding scale dose subcut ACHS 08/06/24 ascorbic acid (vitamin C) 500 mg tablet 500 mg PO BID supplement #60 tabs 08/15/24 losartan 50 mg tablet 50 mg PO DAILY #0 tabs 08/15/24 sennosides 8.6 mg-docusate sodium 50 mg tablet (Stimulant Laxative Plus) 2 tab PO BID PRN PRN Constipation #0 tabs 08/15/24 ipratropium 0.5 mg-albuterol 3 mg (2.5 mg base)/3 mL nebulization soln 3 ml inhalation Q4HWA.RT #0 mL 09/06/24 oseltamivir 75 mg capsule 75 mg PO BID #0 caps 09/06/24 warfarin 5 mg tablet 5 mg PO DAILY #30 tabs 09/06/24
--- NOTE | 2024-09-06 12:01 | PCM.DC.SUM ---
Providers Date of Admission: 09/04/24 Date of Discharge: 09/06/24 Primary Care Physician: Dr. Saurabh Hernandez MD Consultations 09/04/24 11:44 Consult: Onc/Wound/side panel hanger Routine Comment: rt foot wounds 09/04/24 16:01 Consult: Interpreter / Pulmonary Medicine Routine Consulting Provider: Intensivists/Pulmonary Med Reason for Consult: ACUTE RESP FAILURE, PNEUMONIA, COPD EXA? EMERGENT Consult: No MD Notified: Yes Date Notified: 09/04/24 Time Notified: 16:01 Method of Notification: Text Reason For Visit: SOB Diagnosis Discharge Diagnosis (1) Adult failure to thrive: Status: Acute Code(s): R62.7 - Adult failure to thrive (2) History of mechanical aortic valve replacement: Status: Chronic Code(s): Z95.2 - Presence of prosthetic heart valve (3) History of non-ST elevation myocardial infarction (NSTEMI): Status: Resolved Code(s): I25.2 - Old myocardial infarction (4) CHF (congestive heart failure): Status: Acute Code(s): I50.9 - Heart failure, unspecified (5) Influenza A: Status: Acute Code(s): J10.1 - Influenza due to other identified influenza virus with other respiratory manifestations Plan 73-year-old gentleman was admitted with shortness of breath, cough and fever for 1 day prior to admission. Denies any chest pain abdominal pain nausea or vomiting. Mild hypoxic 89% on room air 1. Acute dyspnea and acute hypoxic respiratory failure secondary to COPD exacerbation from influenza A infection: Patient is being admitted on monitored bed. On Tamiflu 75 mg twice daily. Droplet precaution. Maintain saturation more than 90%. Patient in mild respiratory distress with put on Airvo 45% FiO2.. Chest x-ray initially reviewed and no significant change in previous x-ray. It shows lucencies right lower lung zone probably from bowel in the ventral hernia and superior anterior abdominal wall. 09/05: Lactic acid 1.0. No hypotension. Sepsis ruled out. Discussed with the hay stacker operator. Patient is tapered off Airvo. On 2 L of oxygen. Patient respiratory status got better with Airvo, Solu-Medrol and bronchodilator. With suspicion for secondary bacterial infection therefore antibiotic ceftriaxone discontinued. Prednisone 40 mg daily from tomorrow a.m. 09/06: Respiratory status got much better. Patient pulse ox is 99 to 100% on room air. Home oxygen qualification test ordered. Blood pressure normal. Respiratory rate is also 18-20 per night. Patient has been discharged on a scheduled bronchodilator, complete Tamiflu for total of 10 doses. Pulmonary consult recommendations reviewed. Follow-up in pulmonary clinic in 2 weeks for PFT. 2. Acute on chronic HFpEF/congestive heart failure? Echo in October 2022 Interpretation Summary The estimated ejection fraction is 40-45 %. Normal-appearing prosthetic aortic valve In comparison to previous echo in September 22, 2021 Improvement in LV systolic function. 09/04: BNP elevated 470. Started on Lasix 20 mg IV twice daily as blood pressure is soft, systolic about 118 mmHg. Repeat echo shows EF 40 to 45% mild MR, 2+ TR RVSP 46 mmHg. Prosthetic aortic valve mean gradient 17 mmHg, trace AI. Technically difficult study. 09/05: Diuretics as per tolerated. Low-dose 20 mg IV twice daily. BP systolic in 110s. 09/06: Patient discharged on home dose of furosemide 40 mg daily. 3. Elevated troponin acute on chronic HFpEF?likely secondary to strain from congestive heart failure. On IV furosemide. Heart failure core measures including intake and output, fluid restriction less than 1500 mL, daily weight monitoring, kidney and electrolytes monitoring. Troponin shows 89, 120. 09/06: Demand ischemia. 4. History of mechanical valve?on warfarin. INR 1.6 subtherapeutic. Warfarin dose increased. 09/14: INR 2.0. Discharged on warfarin 5 mg daily. Monitor PT/INR in 2 days 5. DVT prophylaxis?patient is anticoagulated 6. Failure to thrive patient does come from intermediate and would plan to have case management for discharge planning back to facility when improving Discharge medication reconciliation done. Discharge follow-up instructions completed. Discharge process discussed with the patient and all questions were answered to patient's satisfaction. Follow with PCP in 1 to 2 weeks Total time spent, exact 35 minutes on discharge meds reconciliation, examination, coordination of care with nurses and ancillary staff, review of imaging and blood test and discussion with the patient on follow-up instructions. Microbiology Past 72 Hours 09/04/24 23:30 Urine, Clean Catch Streptococcus pneumoniae Antigen (M - Final 09/04/24 23:30 Urine, Clean Catch Legionella Antigen - Final 09/04/24 00:21 Mucosa - Nose SARS-CoV-2, Influenza & RSV (PCR) - Final Influenzae A Laboratory Results 09/04/24 16:34: Lactic Acid 1.0 09/04/24 17:13: POC Glucose 159 H 09/04/24 17:29: Specimen Type ART, Sample Site R Radial, pH 7.41, Bicarbonate Actual 22.6, Total CO2 24, Base Excess -2, O2 Saturation 82 L, O2 % 40.0, ABG pCO2 35.5, ABG pO2 46 L, Caesar Test Positive, O2 Delivery Device HFNC, Vent Mode Not entered, Clinical Comments airvo 45 lpm. 40% 09/04/24 22:56: POC Glucose 239 H 09/05/24 06:11: POC Glucose 264 H 09/05/24 06:30: WBC 2.8 L, RBC 3.25 L, Hgb 9.9 L, Hct 31.0 L, MCV 95.4 H, MCH 30.5, MCHC 31.9 L, RDW Std Deviation 50.9 H, RDW Coeff of Estrada 14.5, Plt Count 119 L, MPV 11.1, Immature Gran % (Auto) 0.400, Neut % (Auto) 79.2 H, Lymph % (Auto) 16.1 L, [place] % (Auto) 4.3, Eos % (Auto) 0.0, Baso % (Auto) 0.0, Absolute Neuts (auto) 2.2, Absolute Lymphs (auto) 0.45 L, Nucleated RBC % 0, Diff Path Review November, PT 20.3 H, INR 1.7, Sodium 137, Potassium 4.0, Chloride 108 H, Carbon Dioxide 25.0, Anion Gap 4 L, BUN 43 H, Creatinine 1.19, Estim Creat Clear Calc 67.04, Est GFR (MDRD) Af Amer 77, Est GFR (MDRD) Non-Af 64, BUN/Creatinine Ratio 36.1 H, Glucose 272 H, Calcium 8.5, Troponin I High Sens 53 09/05/24 11:40: POC Glucose 307 H Medications at Discharge Home Medications atorvastatin 40 mg tablet 40 mg PO QHS cholesterol 11/12/20 ferrous sulfate 325 mg (65 mg iron) tablet 325 mg PO DAILY supplement 10/29/22 furosemide 40 mg tablet 40 mg PO DAILY diuretic #0 tabs 11/12/22 cyclobenzaprine 10 mg tablet 10 mg PO Q8H PRN Muscle Pain 12/11/22 insulin lispro 100 unit/mL subcutaneous pen (Humalog KwikPen (U-100) Insulin) 5 unit subcut ACHS Diabetes 12/11/22 pantoprazole 40 mg tablet,delayed release 40 mg PO QDAY 10/04/23 doxepin 50 mg capsule 50 mg PO DAILY 10/28/23 gabapentin 100 mg capsule 100 mg PO DAILY pain 10/28/23 insulin glargine-yfgn 100 unit/mL (3 mL) subcutaneous pen 15 unit subcut QHS Diabetes 10/28/23 linagliptin 5 mg tablet (Tradjenta) 5 mg PO DAILY 10/28/23 metoprolol succinate 25 mg tablet,extended release 24 hr 25 mg PO DAILY bp 10/28/23 mirtazapine 7.5 mg tablet 7.5 mg PO QHS 10/28/23 dtnlargf-ne-vcpig 300 mcg-K 60 mcg-lycop 600 mcg-lutein 300 mcg tablet (Centrum Silver Men) 1 tab PO DAILY 10/28/23 cholecalciferol (vitamin D3) 25 mcg (1,000 unit) capsule 25 mcg PO DAILY supplement 10/31/23 arginine 7 gram-glutam 7 gram-CaHMB 1.5 ikah-fjdvj-ab-min oral pwd pkt (Renny (with collagen)) 1 packet PO BIDCM #0 ea 03/02/24 albuterol sulfate 2.5 mg/3 mL (0.083 %) solution for nebulization 2.5 mg inhalation Q4H PRN shortness of breath or wheezing 07/19/24 acetaminophen 500 mg tablet 1,000 mg PO Q8H PRN pain 08/06/24 gabapentin 300 mg capsule 300 mg PO QHS pain 08/06/24 insulin lispro 100 unit/mL subcutaneous pen (Humalog KwikPen (U-100) Insulin) 1 sliding scale dose subcut ACHS 08/06/24 ascorbic acid (vitamin C) 500 mg tablet 500 mg PO BID supplement #60 tabs 08/15/24 losartan 50 mg tablet 50 mg PO DAILY #0 tabs 08/15/24 sennosides 8.6 mg-docusate sodium 50 mg tablet (Stimulant Laxative Plus) 2 tab PO BID PRN PRN Constipation #0 tabs 08/15/24 ipratropium 0.5 mg-albuterol 3 mg (2.5 mg base)/3 mL nebulization soln 3 ml inhalation Q4HWA.RT #0 mL 09/06/24 oseltamivir 75 mg capsule 75 mg PO BID #0 caps 09/06/24 warfarin 5 mg tablet 5 mg PO DAILY #30 tabs 09/06/24 Physical Exam Narrative Seen and examined. Shortness of breath and respiratory distress has much better. Patient slept well last night. Currently on room air. Physical exam General: Alert, Oriented x3, Cooperative. BMI 30.4 kg/m?. HEENT: Atraumatic, PERRLA, EOMI, Normocephalic Oral: Oral mucosa dry. No Gingival or Mucosal Lesions/ Ulcerations Neck: Supple, No JVD, Negative Carotid Bruits Chest wall/Lungs: Air entry diminished in bilateral lung bases. Lungs clear. RR 18.9. Cardiovascular: Status post CABG scar with unclosed sternotomy with overlying skin graft. Sinus rhythm, Normal S1, Normal S2. Mechanical aortic valve sound. Abdomen: Bowel Sounds Present, Soft, Non Tender, Non-Distended : No dysuria. No renal angle tenderness. No suprapubic tenderness. Extremities: Mild 1+ edema, Capillary Refill Less than 3 Seconds Skin: Right TMA scar has healed and dry. No open ulcer. Musculoskeletal: No Tenderness to Palpation of Joints or Extremities. ROM limited. Decreased mobility Neurological: Cranial nerves II-XII grossly intact, DTR 2+/4. No acute focal neurological deficit. Psych/Mental Status: Flat affect. Weight / BMI Weight Weight: 217 lb 6.012 oz Body Mass Index (BMI) 30.4 ABG / Lab / Microbiology Data 09/05/24 06:30 09/05/24 06:30 Laboratory: Laboratory Results - last 24 hr 09/05/24 06:30: Diff Path Review Reviewed 09/05/24 11:40: POC Glucose 307 H 09/05/24 15:56: Phosphorus 2.8, Magnesium 2.2 09/05/24 16:28: POC Glucose 417 H 09/06/24 06:40: POC Glucose 324 H 09/06/24 09:17: PT 23.4 H, INR 2.0 Microbiology: Microbiology 09/05/24 16:10 Nasal Secretion MRSA (PCR) - Final 09/04/24 23:30 Urine, Clean Catch Streptococcus pneumoniae Antigen (M - Final 09/04/24 23:30 Urine, Clean Catch Legionella Antigen - Final 09/04/24 00:21 Mucosa - Nose SARS-CoV-2, Influenza & RSV (PCR) - Final Influenzae A D/C Instructions DC O2, CPAP, BIPAP Needs PSN CPAP & BiPAP: BiPAP & CPAP Settings per PSN Mode AIRVO 09/05/24 07:35 Bipap Delivery Device Nasal Pillows 09/05/24 07:35 Fraction of Inspired Oxygen ( 28 09/05/24 07:35 FIO2) Total Flow Rate 45 09/05/24 07:35 Home O2 Discharge instructions: Yes Type of respiratory needs?: Oxygen Oxygen frequency: With Ambulation Oxygen liters per minute during Ambulation: 2 L/m DC home with Oxygen: Yes Home O2 MD Review: I have reviewed the oxygen testing, and the patient qualifies for home oxygen equipment and portability. The patient is mobile in the home and the community. Meaningful Use Info Meaningful Use Meaningful Use Diagnoses (Choose all that apply): None applicable Ischemic Stroke Statin Dosing Therapy Reference: STATIN DOSE THERAPY REFERENCE: * Patients > 75 years receive moderate or high dose statin therapy. * Patients 75 years or YOUNGER should receive HIGH intensity statin dose unless contraindicated. You will be required to document reason for non-treatment if statin daily dose does not meet guidelines. HIGH DOSE STATIN THERAPY DAILY Atorvastatin > than or = to 40 mg Rosuvastatin > than or = to 20 mg Amlodipine + Atorvastatin > than or = to 2.5/40 mg Ezetimibe + Simvastatin 10/80 mg Simvastatin 80mg Discharge Plan Admission Admit Date/Time: 09/04/24 04:17 Attending Provider: Kartik Avila Primary Care Provider: Saurabh Hernandez Chi Consulting Providers: Feliciano Pace; Trent Murillo; Cliff Camp; Joshua Jorgensen; Weston Sutton; Jose English; Antolin Jean; Asad Merlos; Dotty Patel; Sami Donis; Da Iqbal; Rusty Washburn; Sara Cartagena; Sanjeev Hansen; Stacy Islas; Adonay Castañeda; Luis Oseguera; Darian Bernal; Zachary Vallejo; Edson Odell; Montse Ambrosio; Woody Vital; Silas Ellsworth; Luis Montoya Instructions Additional Instructions / Restrictions: PT/INR on 09/08/2024 and adjust the dose of warfarin accordingly. Discharge Orders/Prescriptions Prescriptions: New ipratropium-albuterol 0.5 mg-3 mg(2.5 mg base)/3 mL Solution For Nebulization 3 ml inhalation Q4HWA.RT Qty: 0 0RF oseltamivir 75 mg Capsule 75 mg PO BID Qty: 0 0RF Rx Instructions: 5 more doses starting from evening today. warfarin 5 mg tablet 5 mg PO DAILY Qty: 30 0RF Rx Instructions: Keep the INR between 2.5-3.5 Continued pantoprazole 40 mg tablet,delayed release (DR/EC) 40 mg PO QDAY cholecalciferol (vitamin D3) 25 mcg (1,000 unit) capsule 25 mcg PO DAILY albuterol sulfate 2.5 mg /3 mL (0.083 %) solution for nebulization 2.5 mg inhalation Q4H PRN (Reason: shortness of breath or wheezing) atorvastatin 40 mg Tablet 40 mg PO QHS ferrous sulfate 325 mg (65 mg iron) tablet 325 mg PO DAILY furosemide 40 mg Tablet 40 mg PO DAILY Qty: 0 0RF cyclobenzaprine 10 mg Tablet 10 mg PO Q8H PRN (Reason: Muscle Pain) insulin lispro [Humalog KwikPen Insulin] 100 unit/mL Insulin Pen 5 unit SUBCUT ACHS Rx Instructions: set 5 u in addition to SLIDING SCALE Centrum Silver Men [phone] mcg tablet 1 tab PO DAILY mirtazapine 7.5 mg tablet 7.5 mg PO QHS gabapentin 100 mg capsule 100 mg PO DAILY metoprolol succinate 25 mg tablet extended release 24 hr 25 mg PO DAILY Tradjenta 5 mg tablet 5 mg PO DAILY doxepin 50 mg capsule 50 mg PO DAILY insulin glargine-yfgn 100 unit/mL (3 mL) Insulin Pen 15 unit subcut QHS Renny (with collagen) 7-7-1.5 gram Powder In Packet 1 packet PO BIDCM Qty: 0 0RF acetaminophen 500 mg tablet 1,000 mg PO Q8H PRN (Reason: pain) gabapentin 300 mg capsule 300 mg PO QHS insulin lispro [Humalog KwikPen Insulin] 100 unit/mL Insulin Pen 1 sliding scale dose subcut [facility] [address] Protocol: 3. Sliding Scale Insulin Med Dosing Condition: 150-189 mg/dl = 1 unit Condition: 190-229 mg/dl = 2 units Condition: 230-269 mg/dl = 3 units Condition: 270-309 mg/dl = 4 units Condition: 310-349 mg/dl = 5 units Condition: 350-399 mg/dl = 6 units Condition: 400-449 mg/dl = 7 units Condition: Greater than 449 call physician Protocol Text: - Use for Total Daily Dose of Insulin 37-55 units - Obsese, infected, or steroid patients MEDIUM DOSING ALGORITHIM losartan 50 mg Tablet 50 mg PO DAILY Qty: 0 0RF Rx Instructions: Hold for SBP less than 130 mmHg sennosides-docusate sodium [Stimulant Laxative Plus] 8.6-50 mg Tablet 2 tab PO BID PRN PRN (Reason: Constipation) Qty: 0 0RF ascorbic acid (vitamin C) 500 mg tablet 500 mg PO BID Qty: 60 2RF Discontinued warfarin [Jantoven] 4 mg Tablet 4 mg PO DINNER Qty: 0 0RF Rx Instructions: Keep the INR between 2.5-3.5 Referrals / Follow Up: Weston Sutton DO [Med Staff - Active Staff] - Within 2 Weeks Saurabh Hernandez Chi, MD [Primary Care Provider] - Disposition Disposition (needs filled in before D/C Order can be placed): [facility] Charges/Coding Visit Charges Inpatient E&M: 41061 Disch Hosp >30min
--- NOTE | 2024-09-06 12:14 | CASEMGMT ---
Social Work Per physician, pt is medically ready for discharge today. [facility] notified and pt can return. DC architectural administrative assistant updated and to complete discharge. Disposition: Return to [facility]. Intermediate level of care MELISSA Jones
[2024-09-06 12:15] LABS: Bedside Glucose 279 mg/dL (74-106)
--- NOTE | 2024-09-06 12:32 | CASEMGMT ---
Discharge orders, signed med list, and transport time sent to [facility] Physicians will transport pt by wheelchair at 2p. Nursing, SW, and pt updated. Pt declined updates to his friends listed. Lizabeth Church DC Planning Asst.
== END 2024-09-06 15:30 | disposition skilled nursing facility (03) | DRG 193 ==
LOC: ED 09-04 00:57 → PCU 09-04 04:56
PROVIDERS: Admitting Provider Family Medicine; Emergency Provider Surgery; PCP Family Medicine Geriatric Medicine; Visit Provider Internal Medicine
DX: J10.1 Influenza due to other identified influenza virus with other respiratory manifestations (principal); I50.33 Acute on chronic diastolic (congestive) heart failure; J96.01 Acute respiratory failure with hypoxia; J44.1 Chronic obstructive pulmonary disease with (acute) exacerbation; I24.89 Other forms of acute ischemic heart disease; L97.419 Non-pressure chronic ulcer of right heel and midfoot with unspecified severity; D69.6 Thrombocytopenia, unspecified; I27.21 Secondary pulmonary arterial hypertension; E11.51 Type 2 diabetes mellitus with diabetic peripheral angiopathy without gangrene; I11.0 Hypertensive heart disease with heart failure; D64.9 Anemia, unspecified; Z95.2 Presence of prosthetic heart valve; Z68.30 Body mass index [BMI] 30.0-30.9, adult; E11.621 Type 2 diabetes mellitus with foot ulcer; I25.10 Atherosclerotic heart disease of native coronary artery without angina pectoris; I25.2 Old myocardial infarction; I25.5 Ischemic cardiomyopathy; I35.0 Nonrheumatic aortic (valve) stenosis; K21.9 Gastro-esophageal reflux disease without esophagitis; E78.5 Hyperlipidemia, unspecified; Z79.4 Long term (current) use of insulin; F17.210 Nicotine dependence, cigarettes, uncomplicated; L97.519 Non-pressure chronic ulcer of other part of right foot with unspecified severity; K43.9 Ventral hernia without obstruction or gangrene; Z89.421 Acquired absence of other right toe(s); E11.42 Type 2 diabetes mellitus with diabetic polyneuropathy; R62.7 Adult failure to thrive; Z95.1 Presence of aortocoronary bypass graft; Z79.01 Long term (current) use of 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s; Z79.899 Other long term (current) drug therapy; Z86.718 Personal history of other venous thrombosis and embolism
CPT/HCPCS: 36415; 36600; 71045; 80048; 82803; 82962; 83605; 83735; 83880; 84100; 84484; 85025; 85610; 87040; 87449; 87631; 87641; 93005; 93306; 94640; 94660; 97162; 97166; 97802; 99252; 99285; 99406; Q9957; A4216; C8929; G0463; J0696; J1940

== ENCOUNTER 2024-09-12 09:30 | Outpatient (RCR) | payer MEDICARE, MEDICAID, SELFPAY ==
[2024-08-18 01:52] VITALS: BP 121/54; PULSE 89; RESP 18; TEMP 36.6; BMI 26.4
[2024-08-22 09:28] VITALS: BP 115/47; PULSE 73; RESP 18; TEMP 36.2; BMI 26.4
--- NOTE | 2024-08-22 10:12 | PN.PCM_ITS ---
History of Present Illness Date of Service: 08/22/24 Chief Complaint: Ulcer right foot History of Wound: Patient presents to the wound care center today follow-up evaluation of full-thickness wounds to the right lower extremity. Patient was recently in the hospital for the past 2 weeks due to GI bleed was treated and discharge. He is following today for continued wound care to the right lower extremity. Progress of Wound: Full-thickness wound to the TMA site laterally as well as the heel of the right lower extremity. Stable no sign of infection. Subjective Subjective Mr. Coronel is a 73-year-old male presented wound care center today for follow-up evaluation of full-thickness wound to the right lower extremity TMA site and heel of the right lower extremity. Patient was recently in the hospital for approximately 2 weeks due to a GI bleed. He was treated and discharged. He is following up today for continued treatment and care. He has been getting dressing changes when he was in the hospital and is doing well. Denies any new onset of trauma or wounds. Denies constitutional symptoms. No other pedal complaints at this time. Objective Data Objective Data Vital Signs: Vital Signs Temp Pulse Resp BP 97.1 F L 73 18 115/47 L 08/22/24 09:28 08/22/24 09:28 08/22/24 09:28 08/22/24 09:28 Weight: 86.183 kg Body Mass Index (BMI) 26.4 Physical Exam Narrative Vascular: DP and PT pulses are palpable to the right lower extremity. CFT is brisk to the flap to the right foot. Skin temperature great is warm to warm from proximal ankles to distal digits. Skin temperature and turgor is within normal limits. Neurological: Light touch intact. Patient does not respond to painful stimuli. Dermatological: Right transmetatarsal amputation stump laterally wound measures 1.5 x 1.5 x 0.5 cm. Negative probe to bone. No drainage no sign of infection. Right heel full-thickness wound measures 3.0 x 0.8 x 0.2 cm all wounds are stable. Excisional debridement down to and including subcutaneous tissue of the right posterior heel with a number 5 mm dermal curette without incident. Pr edebridement measurement was 2.9 x 0.6 x 0.1 cm. Postdebridement measurement is 3.0 x 0.8 x 0.2 cm. Excisional debridement down to and including subcutaneous tissue to the right TMA full-thickness ulceration with a number 5 mm dermal curette without incident. Predebridement measurement was 1.3 x 1.4 x 0.3 cm. Postdebridement measurement is 1.5 x 1.5 x 0.5 cm. EpiCord 2.0 x 3.0 cm graft was applied to the right full-thickness ulceration to the TMA site with 100% use. Fifth application. The graft site was free and clear of any infection. The wound/skin graft substitute was dressed with n onadherent bandage secured in place with Steri-Strips followed by bolster dressing as well as a single Tubigrip compression bandage donned to the right lower extremity. Musculoskeletal:. Muscle strength is 5 out of 5 in all quadrants to the right lower extremity. No pain to palpation to the full-thickness wounds to the right lower extremity. No pain with calf pressure. Debridement Note Debridement Note Debridement Free Text: Excisional debridement down to and including subcutaneous tissue of the right posterior heel with a number 5 mm dermal curette without incident. Predebridement measurement was 2.9 x 0.6 x 0.1 cm. Postdebridement measurement is 3.0 x 0.8 x 0.2 cm. Excisional debridement down to and including subcutaneous tissue to the right TMA full-thickness ulceration with a number 5 mm dermal curette without incident. Predebridement measurement was 1.3 x 1.4 x 0.3 cm. Postdebridement measurement is 1.5 x 1.5 x 0.5 cm. EpiCord 2.0 x 3.0 cm graft was applied to the right full-thickness ulceration to the TMA site with 100% use. Fifth application. The graft site was free and janina ar of any infection. The wound/skin graft substitute was dressed with nonadherent bandage secured in place with Steri-Strips followed by bolster dressing as well as a single Tubigrip compression bandage donned to the right lower extremity. Post-Debridement Measurements and Additional Note: Post-Debridement Measurements/Treatment WC - Nurse 1 - General Ulcer Assessment Start: 08/22/24 09:28 Freq: Status: Active Protocol: FLAVIOEXT Activity Type Activity Date Activity User E-sign Co-sign Detail Recorded Client Recorded Date Recorded By Document 08/22/24 09:28 BRITT [id number] 08/22/24 09:31 08/22/24 09:28 - Today's Visit Information Type of service Follow-up Visit (Physician/GENERATING [employer] SUPERINTENDENT ) Arrival Mode Wheelchair Transfer Assistance None Patient Identification Verified (Name & Yes ) Patient Requires Transmission-Based No Precautions Height and Weight Body Mass Index (BMI) 26.4 BMI Classification Overweight Vital Signs Temperature (97.8 F-99.1 F) 97.1 F L Temperature Source Temporal Pulse Rate (60-100) 73 Pulse Location Monitor Respiratory Rate (12-18) 18 Respiratory rate source Observation Blood Pressure (90/60-120/80) 115/47 L Blood Pressure Mean (mm Hg) 69 Source Monitor Position Semi-Fowlers Blood Pressure Location Left Arm History Since Last Visit- (Skip if this is Patient's initial visit) Have you changed medications since your No last visit? Any new allergies or adverse reactions No Had a fall/change in ADL's that may No increase risk of falls Signs or symptoms of abuse and/or No neglect since last visit Have you been in the hospital since your No last visit? Has dressing in place as prescribed Yes Has compression in place as prescribed Yes Has offloadiing in place as prescribed Yes Experienced any changes in pain level or No management Left Footwear Slipper Right Footwear No Footwear Pain Scale: 0-10 Numeric Is Patient Pain Free? Yes - Nurse 1 - General Ulcer Measurement Start: 08/22/24 09:28 Freq: Status: Active Protocol: Activity Type Activity Date Activity User E-sign Co-sign Detail Recorded Client Recorded Date Recorded By Document 08/22/24 09:28 [id number] 08/22/24 09:31 08/22/24 09:28 Wound Center Nurse 1 #4 right heel -Combined with other wound No -Current Size (cm) - Length 1.3 -Current Size (cm) - Width 2.7 -Current Size (cm) - Depth 0.1 -Total Square Cm 3.51 -Photo Taken Yes -Tunneling No -Undermining/Tunneling No -Circular Undermining No -Exudate Amt Medium -Exudate Type Serosanguineous -Wound Margin Thickened & Rolled Under -Granulation Amt Medium (34-66%) -Granulation Quality Red -Slough/Fibrin Yes -Necrosis Amt Medium (34-66%) -Necrotic Tissue Type Adherent Slough -Structure Exposed N/A -Texture (Donna-wound Skin Appearance) Callus -Moisture (Donna-wound Skin Appearance) Assessed -Color (Donna-wound Skin Appearance) Assessed -Temperature (Donna-wound Skin No Abnormality Appearance) (Pt Warm) -Tenderness on Palpation (Donna-wound No Skin Appearance) -Ulcer Cleansing Wound Cleanser -Foul Odor after Cleansing No -Anesthetic Used 5% Lidocaine Gel #3 right lateral foot -Combined with other wound No -Current Size (cm) - Length 1 -Current Size (cm) - Width 1 -Current Size (cm) - Depth 0.1 -Total Square Cm 1 -Photo Taken Yes -Tunneling No -Undermining/Tunneling No -Circular Undermining No -Exudate Amt Medium -Exudate Type Serosanguineous -Wound Margin Distinct, Outline Attached -Granulation Amt Medium (34-66%) -Granulation Quality [place] -Slough/Fibrin Yes -Necrosis Amt Medium (34-66%) -Necrotic Tissue Type Adherent Slough -Structure Exposed N/A -Texture (Donna-wound Skin Appearance) Assessed -Moisture (Donna-wound Skin Appearance) Dry/Scaly -Color (Donna-wound Skin Appearance) Assessed -Temperature (Donna-wound Skin No Abnormality Appearance) (Pt Warm) -Tenderness on Palpation (Donna-wound No Skin Appearance) -Ulcer Cleansing Wound Cleanser -Foul Odor after Cleansing No -Anesthetic Used 5% Lidocaine Gel Lower Limb Edema Present Yes Right Calf (cm) 33.5 Right Ankle (cm) 19.5 WC - Nurse 2 - General Ulcer CM Notes Start: 08/22/24 09:28 Freq: Status: Active Protocol: Activity Type Activity Date Activity User E-sign Co-sign Detail Recorded Client Recorded Date Recorded By Document 08/22/24 09:38 JF [id number] 08/22/24 09:42 JF 08/22/24 09:38 Wound Center Nurse 2 #4 right heel -Correct Patient Yes -Correct Side, Site, Position Yes -Correct Procedure Yes -Procedure Performed Yes -Type of Procedure Debridement -Clinical Debridement Subcutaneous -Tissue Removed Subcutaneous -Post Debridement (cm) - Length 3.0 -Post Debridement (cm) - Width 0.8 -Post Debridement (cm) - Depth 0.2 -Total Square (Post) (cm) 2.40 -Area of Debridement (cm) - Length 3.0 -Area of Debridement (cm) - Width 0.8 -Total Square (Area) (cm) 2.40 -Tunneling No -Undermining/Tunneling No -Circular Undermining No -Wound/Ulcer Outcome Not Healed -Ulcer Cleansing Rinsed/ Irrigated with Saline -Foul Odor after Cleansing No -Bioengineered Tissue No -Bleeding Controlled with Pressure -Treatment Response Procedure Tolerated Well -Offloading No -Debridement - Subq, 1st 20sq cm Yes #3 right lateral foot -Time 09:41 -Correct Patient Yes -Correct Side, Site, Position Yes -Correct Procedure Yes -Procedure Performed Yes -Type of Procedure Debridement -Clinical Debridement Subcutaneous -Tissue Removed Subcutaneous -Post Debridement (cm) - Length 1.5 -Post Debridement (cm) - Width 1.5 -Post Debridement (cm) - Depth 0.5 -Total Square (Post) (cm) 2.25 -Area of Debridement (cm) - Length 1.5 -Area of Debridement (cm) - Width 1.5 -Total Square (Area) (cm) 2.25 -Tunneling No -Undermining/Tunneling No -Circular Undermining No -Wound/Ulcer Outcome Not Healed -Ulcer Cleansing Rinsed/ Irrigated with Saline -Foul Odor after Cleansing No -Bioengineered Tissue Yes -Type of Bioengineered Tissue Epicord -Expiration Date 02/15/29 -Product Lot Number [id number] -Percent Used 100 -Lot number of Saline Used [id number] -Bleeding Controlled with Pressure -Treatment Response Procedure Tolerated Well -Offloading No -Debridement - Subq, 1st 20sq cm No -Apply Skin Sub - 1st 25 sq cm - Feet 1 -Epicord (per sq cm) 6 Pain Scale: 0-10 Numeric Is Patient Pain Free? Yes WC - Nurse 3 - General Ulcer D/C NN Start: 08/22/24 09:28 Freq: Status: Active Protocol: Activity Type Activity Date Activity User E-sign Co-sign Detail Recorded Client Recorded Date Recorded By Document 08/22/24 09:57 CP [id number] 08/22/24 09:59 CP 08/22/24 09:57 Wound Care Center Nurse 3 #4 right heel -Primary Dressing Applied C Hydrogel ($) -Primary Dressing Covered/Secured with Dry Gauze & Roll Gauze #3 right lateral foot -Primary Dressing Applied C Hydrogel ($) -Primary Dressing Covered/Secured with Dry Gauze & Roll Gauze Right -Compression Wrap Donte Wrap Pain Scale: 0-10 Numeric Is Patient Pain Free? 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 All findings were discussed with the patient. All questions were answered to the patient's satisfaction. Excisional debridement down to and including subcutaneous tissue of the right posterior heel with a number 5 mm dermal curette without incident. Predebridement measurement was 2.9 x 0.6 x 0.1 cm. Postdebridement measurement is 3.0 x 0.8 x 0.2 cm. Excisional debridement down to and including subcutaneous tissue to the right TMA full-thickness ulceration with a number 5 mm dermal curette without incident. Predebridement measurement was 1.3 x 1.4 x 0.3 cm. Postdebridement measurement is 1.5 x 1.5 x 0.5 cm. EpiCord 2.0 x 3.0 cm graft was applied to the right full-thickness ulceration to the TMA site with 100% use. Fifth application. The graft site was free and clear of any infection. The wound/skin graft substitute was dressed with nonadherent bandage secured in place with Steri-Strips followed by bolster dressing as well as a single Tubigrip compression bandage donned to the right lower extremity. Follow-up at the wound care center with Dr. Lyons in 1 week. (2) Non-pressure chronic ulcer of right heel and midfoot with fat layer exposed: CODE(S): L97.412 - Non-pressure chronic ulcer of right heel and midfoot with fat layer exposed
[2024-08-29 09:12] VITALS: BP 130/56; PULSE 67; RESP 15; TEMP 35.5; BMI 26.4
--- NOTE | 2024-08-29 13:41 | PN.PCM_ITS ---
History of Present Illness Date of Service: 08/29/24 Chief Complaint: Ulcer right foot History of Wound: Patient presents to the wound care center today follow-up evaluation of full-thickness wounds to the right lower extremity. Patient was recently in the hospital for the past 2 weeks due to GI bleed was treated and discharge. He is following today for continued wound care to the right lower extremity. Progress of Wound: Full-thickness wound to the TMA site laterally as well as the heel of the right lower extremity. Stable no sign of infection. Subjective Subjective Mr. Mathew is a 73-year-old male presenting to the wound care center today for follow-up evaluation of full-thickness wound to the right transmetatarsal site and heel. He has been compliant with leaving his dressing clean dry and intact and getting dressing changes to the heel area. He is doing well. He is working physical therapy. Blood sugar well-controlled. Denies trauma. Denies constitutional symptoms. Other pedal complaints at this time. Objective Data Objective Data Vital Signs: Vital Signs Temp Pulse Resp BP 96 F L 67 15 130/56 H 08/29/24 09:12 08/29/24 09:12 08/29/24 09:12 08/29/24 09:12 Weight: 86.183 kg Body Mass Index (BMI) 26.4 Physical Exam Narrative Vascular: DP and PT pulses are palpable to the right lower extremity. CFT is brisk to the flap to the right foot. Skin temperature great is warm to warm from proximal ankles to distal digits. Skin temperature and turgor is within normal limits. Neurological: Light touch intact. Patient does not respond to painful stimuli. Dermatological: Right transmetatarsal amputation stump laterally wound measures 1.2 x 1.4 x 0.5 cm. Negative probe to bone. No drainage no sign of infection. Right heel full-thickness wound measures 2.7 x 1.2 x 0.2 cm. All wounds are stable. Excisional debridement down to and including subcutaneous tissue of the right posterior heel with a number 5 mm dermal curette without incident. Predebridement measurement was 2.6 x 1.1 x 0.1 cm.. Postdebridement measurement is 2.7 x 1.2 x 0.2 cm. Excisional debridement down to and including subcutaneous tissue to the right TMA full-thickness ulceration with a number 5 mm dermal curette without incident. Predebridement measurement was 1.1 x 1.2 x 0.4 cm. Postdebridement measurement is 1.2 x 1.4 x 0.5 cm. EpiCord 2.0 x 3.0 cm graft was applied to the right full-thickness ulceration to the TMA site with 100% use. Sixth application. The graft site was free and clear of any infection. The wound/skin graft substitute was dressed with nonadherent bandage secured in place with Steri-Strips followed by bolster dressing as well as a single Tubigrip compression bandage donned to the right lower extremity. Musculoskeletal:. Muscle strength is 5 out of 5 in all quadrants to the right lower extremity. No pain to palpation to the full-thickness wounds to the right lower extremity. No pain with calf pressure. Debridement Note Debridement Note Debridement Free Text: Excisional debridement down to and including subcutaneous tissue of the right posterior heel with a number 5 mm dermal curette without incident. Predebridement measurement was 2.6 x 1.1 x 0.1 cm.. Postdebridement measurement is 2.7 x 1.2 x 0.2 cm. Excisional debridement down to and including subcutaneous tissue to the right TMA full-thickness ulceration with a number 5 mm dermal curette without incident. Predebridement measurement was 1.1 x 1.2 x 0.4 cm. Postdebridement measurement is 1.2 x 1.4 x 0.5 cm. EpiCord 2.0 x 3.0 cm graft was applied to the right full-thickness ulceration to the TMA site with 100% use. Sixth application. The graft site was free and clear of any infection. The wound/skin graft substitute was dressed with nonadherent bandage secured in place with Steri-Strips followed by bolster dressing as well as a single Tubigrip compression bandage donned to the right lower extremity. Post-Debridement Measurements and Additional Note: Post-Debridement Measurements/Treatment WC - Nurse 1 - General Ulcer Assessment Start: 08/22/24 09:28 Freq: Status: Active Protocol: LOWEXT Activity Type Activity Date Activity User E-sign Co-sign Detail Recorded Client Recorded Date Recorded By Document 08/22/24 09:28 RB [id number] 08/22/24 09:31 RB Document 08/29/24 09:12 ML [id number] 08/29/24 09:23 ML 08/22/24 08/29/24 09:28 09:12 WC - Today's Visit Information Type of service Follow-up Visit Follow-up Visit (Physician/CLEANER WALL (Physician/CLEANER WALL ) ) Arrival Mode Wheelchair Wheelchair Transfer Assistance None None Patient Identification Verified (Name & Yes Yes ) Patient Requires Transmission-Based No No Precautions Finger Stick Blood Sugar(mg/dl) (if 250 indicated): Blood Sugar Stated by Patient Height and Weight Body Mass Index (BMI) 26.4 26.4 BMI Classification Overweight Overweight Vital Signs Temperature (97.8 F-99.1 F) 97.1 F L 96 F L Temperature Source Temporal Temporal Pulse Rate (60-100) 73 67 Pulse Location Monitor Monitor Respiratory Rate (12-18) 18 15 Respiratory rate source Observation Observation Blood Pressure (90/60-120/80) 115/47 L 130/56 H Blood Pressure Mean (mm Hg) 69 80 Source Monitor Monitor Position Semi-Fowlers Sitting Blood Pressure Location Left Arm Left Arm History Since Last Visit- (Skip if this is Patient's initial visit) Have you changed medications since your No No last visit? Any new allergies or adverse reactions No No Had a fall/change in ADL's that may No No increase risk of falls Signs or symptoms of abuse and/or No No neglect since last visit Have you been in the hospital since your No No last visit? Has dressing in place as prescribed Yes Yes Has compression in place as prescribed Yes N/A Has offloadiing in place as prescribed Yes N/A Experienced any changes in pain level or No No management Left Footwear Slipper Right Footwear No Footwear Pain Scale: 0-10 Numeric Is Patient Pain Free? Yes Yes - Nurse 1 - General Ulcer Measurement Start: 08/22/24 09:28 Freq: Status: Active Protocol: Activity Type Activity Date Activity User E-sign Co-sign Detail Recorded Client Recorded Date Recorded By Document 08/22/24 09:28 RB [id number] 08/22/24 09:31 RB Document 08/29/24 09:12 ML [id number] 08/29/24 09:23 ML 08/22/24 08/29/24 09:28 09:12 Wound Center Nurse 1 #4 right heel -Combined with other wound No -Current Size (cm) - Length 1.3 3 -Current Size (cm) - Width 2.7 1.5 -Current Size (cm) - Depth 0.1 0.2 -Total Square Cm 3.51 4.5 -Photo Taken Yes -Tunneling No -Undermining/Tunneling No -Circular Undermining No -Exudate Amt Medium Medium -Exudate Type Serosanguineous Serosanguineous -Wound Margin Thickened & Rolled Under -Granulation Amt Medium (34-66%) Medium (34-66%) -Granulation Quality Red -Slough/Fibrin Yes Yes -Necrosis Amt Medium (34-66%) Medium (34-66%) -Necrotic Tissue Type Adherent Slough Adherent Slough -Structure Exposed N/A -Texture (Donna-wound Skin Appearance) Callus Assessed -Moisture (Donna-wound Skin Appearance) Assessed Assessed -Color (Donna-wound Skin Appearance) Assessed Assessed -Temperature (Donna-wound Skin No Abnormality No Abnormality Appearance) (Pt Warm) (Pt Warm) -Tenderness on Palpation (Donna-wound No No Skin Appearance) -Ulcer Cleansing Wound Cleanser Not Cleansed -Foul Odor after Cleansing No No -Anesthetic Used 5% Lidocaine 5% Lidocaine Gel Gel #3 right lateral foot -Combined with other wound No -Current Size (cm) - Length 1 1.5 -Current Size (cm) - Width 1 1.5 -Current Size (cm) - Depth 0.1 0.3 -Total Square Cm 1 2.25 -Photo Taken Yes -Tunneling No -Undermining/Tunneling No -Circular Undermining No -Exudate Amt Medium Medium -Exudate Type Serosanguineous Serosanguineous -Wound Margin Distinct, Outline Attached -Granulation Amt Medium (34-66%) Medium (34-66%) -Granulation Quality [place] -Slough/Fibrin Yes Yes -Necrosis Amt Medium (34-66%) Medium (34-66%) -Necrotic Tissue Type Adherent Slough Adherent Slough -Structure Exposed N/A -Texture (Donna-wound Skin Appearance) Assessed Assessed -Moisture (Donna-wound Skin Appearance) Dry/Scaly Assessed -Color (Donna-wound Skin Appearance) Assessed Assessed -Temperature (Donna-wound Skin No Abnormality No Abnormality Appearance) (Pt Warm) (Pt Warm) -Tenderness on Palpation (Donna-wound No No Skin Appearance) -Ulcer Cleansing Wound Cleanser Soap and Water -Foul Odor after Cleansing No No -Anesthetic Used 5% Lidocaine 5% Lidocaine Gel Gel Lower Limb Edema Present Yes Right Calf (cm) 33.5 Right Ankle (cm) 19.5 WC - Nurse 2 - General Ulcer CM Notes Start: 08/22/24 09:28 Freq: Status: Active Protocol: Activity Type Activity Date Activity User E-sign Co-sign Detail Recorded Client Recorded Date Recorded By Document 08/22/24 09:38 [id number] 08/22/24 09:42 Document 08/29/24 09:47 [facility] [id number] 08/29/24 09:56 [facility] 08/22/24 08/29/24 09:38 09:47 Wound Center Nurse 2 #4 right heel -Time 09:48 -Correct Patient Yes Yes -Correct Side, Site, Position Yes Yes -Correct Procedure Yes Yes -Procedure Performed Yes Yes -Type of Procedure Debridement Debridement -Clinical Debridement Subcutaneous Subcutaneous -Tissue Removed Subcutaneous Subcutaneous -Post Debridement (cm) - Length 3.0 2.7 -Post Debridement (cm) - Width 0.8 1.2 -Post Debridement (cm) - Depth 0.2 0.2 -Total Square (Post) (cm) 2.40 3.24 -Area of Debridement (cm) - Length 3.0 2.7 -Area of Debridement (cm) - Width 0.8 1.2 -Total Square (Area) (cm) 2.40 3.24 -Tunneling No No -Undermining/Tunneling No No -Circular Undermining No No -Wound/Ulcer Outcome Not Healed Not Healed -Ulcer Cleansing Rinsed/ Rinsed/ Irrigated with Irrigated with Saline Saline -Foul Odor after Cleansing No No -Bioengineered Tissue No No -Bleeding Controlled with Pressure Pressure -Treatment Response Procedure Procedure Tolerated Well Tolerated Well -Offloading No -Debridement - Subq, 1st 20sq cm Yes Yes #3 right lateral foot -Time 09:41 09:48 -Correct Patient Yes Yes -Correct Side, Site, Position Yes Yes -Correct Procedure Yes Yes -Procedure Performed Yes Yes -Type of Procedure Debridement Debridement -Clinical Debridement Subcutaneous Subcutaneous -Tissue Removed Subcutaneous Subcutaneous -Post Debridement (cm) - Length 1.5 1.2 -Post Debridement (cm) - Width 1.5 1.4 -Post Debridement (cm) - Depth 0.5 0.5 -Total Square (Post) (cm) 2.25 1.68 -Area of Debridement (cm) - Length 1.5 1.2 -Area of Debridement (cm) - Width 1.5 1.4 -Total Square (Area) (cm) 2.25 1.68 -Tunneling No No -Undermining/Tunneling No No -Circular Undermining No No -Wound/Ulcer Outcome Not Healed Not Healed -Ulcer Cleansing Rinsed/ Rinsed/ Irrigated with Irrigated with Saline Saline -Foul Odor after Cleansing No No -Bioengineered Tissue Yes Yes -Type of Bioengineered Tissue Epicord Epicord -Expiration Date 02/15/29 09/15/28 -Product Lot Number [id number] -Percent Used 100 100 -Lot number of Saline Used [id number] -Bleeding Controlled with Pressure Pressure -Treatment Response Procedure Procedure Tolerated Well Tolerated Well -Offloading No -Debridement - Subq, 1st 20sq cm No No -Apply Skin Sub - 1st 25 sq cm - Feet 1 1 -Epicord (per sq cm) 6 6 Pain Scale: 0-10 Numeric Is Patient Pain Free? Yes Yes - Nurse 3 - General Ulcer D/C NN Start: 08/22/24 09:28 Freq: Status: Active Protocol: Activity Type Activity Date Activity User E-sign Co-sign Detail Recorded Client Recorded Date Recorded By Document 08/22/24 09:57 CP [id number] 08/22/24 09:59 CP Document 08/29/24 10:09 KW [id number] 08/29/24 10:09 KW 08/22/24 08/29/24 09:57 10:09 Wound Care Center Nurse 3 #4 right heel -Primary Dressing Applied C Hydrogel ($) -Primary Dressing Covered/Secured with Dry Gauze & Dry Gauze Roll Gauze #3 right lateral foot -Primary Dressing Applied C Hydrogel ($) -Primary Dressing Covered/Secured with Dry Gauze & Dry Gauze & Roll Gauze Roll Gauze, Secured with Tape Right -Compression Wrap Donte Wrap Donte Wrap Pain Scale: 0-10 Numeric Is Patient Pain Free? 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 All findings were discussed with the patient. All questions were answered to the patient's satisfaction. Excisional debridement down to and including subcutaneous tissue of the right posterior heel with a number 5 mm dermal curette without incident. Predebridement measurement was 2.6 x 1.1 x 0.1 cm.. Postdebridement measurement is 2.7 x 1.2 x 0.2 cm. Excisional debridement down to and including subcutaneous tissue to the right TMA full-thickness ulceration with a number 5 mm dermal curette without incident. Predebridement measurement was 1.1 x 1.2 x 0.4 cm. Postdebridement measurement is 1.2 x 1.4 x 0.5 cm. EpiCord 2.0 x 3.0 cm graft was applied to the right full-thickness ulceration to the TMA site with 100% use. Sixth application. The graft site was free and clear of any infection. The wound/skin graft substitute was dressed with nonadherent bandage secured in place with Steri-Strips followed by bolster dressing as well as a single Tubigrip compression bandage donned to the right lower extremity. Follow-up at the wound care center with Dr. Lyons in 1 week. (2) Non-pressure chronic ulcer of right heel and midfoot with fat layer exposed: CODE(S): L97.412 - Non-pressure chronic ulcer of right heel and midfoot with fat layer exposed
[2024-09-12 09:27] VITALS: BP 112/42; PULSE 68; RESP 18; TEMP 36.2; BMI 26.4
--- NOTE | 2024-09-12 11:59 | PCM.WC.PN ---
History of Present Illness Date of Service: 09/12/24 Chief Complaint: Ulcer right foot History of Wound: Patient presents to the wound care center today follow-up evaluation of full-thickness wounds to the right lower extremity. Patient was recently in the hospital for the past 2 weeks due to GI bleed was treated and discharge. He is following today for continued wound care to the right lower extremity. Progress of Wound: Full-thickness wound to the TMA site laterally as well as the heel of the right lower extremity. Stable no sign of infection. Subjective Subjective Mr. Coronel is a 73-year-old male presenting to wound care center today for follow-up evaluation of right foot full-thickness wound to the TMA site as well as right heel. Patient was in the hospital due to influenza A and treated and discharged and present today back to the wound care center today for follow-up and amniotic skin graft substitute applications. His blood sugars well-controlled. He is weightbearing as tolerated to the bilateral extremity. Denies trauma. Denies constitutional symptoms. No other pedal complaints at this time Objective Data Objective Data Vital Signs: Vital Signs Temp Pulse Resp BP O2 Del Method 97.2 F L 68 18 112/42 L Room Air 09/12/24 09:27 09/12/24 09:27 09/12/24 09:27 09/12/24 09:27 09/12/24 09:27 Oxygen Delivery Method Room Air Weight: 86.183 kg Body Mass Index (BMI) 26.4 Physical Exam Narrative Vascular: DP and PT pulses are palpable to the right lower extremity. CFT is brisk to the flap to the right foot. Skin temperature great is warm to warm from proximal ankles to distal digits. Skin temperature and turgor is within normal limits. Neurological: Light touch intact. Patient does not respond to painful stimuli. Dermatological: Right transmetatarsal amputation stump laterally wound measures 1.0 x 1.0 x 0.1 cm. Negative probe to bone. No drainage no sign of infection. Right heel full-thickness wound measures 2.5 x 1.2 x 0.2 cm. All wounds are stable. Excisional debridement down to and including subcutaneous tissue of the right posterior heel with a number 5 mm dermal curette without incident. Predebridement measurement was 2.3 x 1.1 x 0.1 cm. Postdebridement measurement is 2.5 x 1.2 x 0.2 cm. Excisional debridement down to and including subcutaneous tissue to the right TMA full-thickness ulceration with a number 5 mm dermal curette without incident. Predebridement measurement was 0.5 x 0.5 x 0.1 cm. Postdebridement measurement is 1.0 x 1.0 x 0.1 cm. EpiFix 18 mm disc graft was applied to the right full-thickness ulceration to the TMA site with 100% use. Seventh application. The graft site was free and clear of any infection. The wound/skin graft substitute was dressed with nonadherent bandage secured in place with Steri-Strips followed by bolster dressing as well as a single Tubigrip compression bandage donned to the right lower extremity. Musculoskeletal:. Muscle strength is 5 out of 5 in all quadrants to the right lower extremity. No pain to palpation to the full-thickness wounds to the right lower extremity. No pain with calf pressure. Debridement Note Debridement Note Debridement Free Text: Excisional debridement down to and including subcutaneous tissue of the right posterior heel with a number 5 mm dermal curette without incident. Predebridement measurement was 2.3 x 1.1 x 0.1 cm. Postdebridement measurement is 2.5 x 1.2 x 0.2 cm. Excisional debridement down to and including subcutaneous tissue to the right TMA full-thickness ulceration with a number 5 mm dermal curette without incident. Predebridement measurement was 0.5 x 0.5 x 0.1 cm. Postdebridement measurement is 1.0 x 1.0 x 0.1 cm. EpiFix 18 mm disc graft was applied to the right full-thickness ulceration to the TMA site with 100% use. Seventh application. The graft site was free and clear of any infection. The wound/skin graft substitute was dressed with nonadherent bandage secured in place with Steri-Strips followed by bolster dressing as well as a single Tubigrip compression bandage donned to the right lower extremity. Post-Debridement Measurements and Additional Note: Post-Debridement Measurements/Treatment WC - Nurse 1 - General Ulcer Assessment Start: 08/22/24 09:28 Freq: Status: Active Protocol: DOLORES.LOWEXT Activity Type Activity Date Activity User E-sign Co-sign Detail Recorded Client Recorded Date Recorded By Document 08/22/24 09:28 RB [id number] 08/22/24 09:31 RB Document 08/29/24 09:12 ML [id number] 08/29/24 09:23 ML Document 09/12/24 09:27 KW [id number] 09/12/24 09:38 KW 08/22/24 08/29/24 09/12/24 09:28 09:12 09:27 WC - Today's Visit Information Type of service Follow-up Visit Follow-up Visit Follow-up Visit (Physician/DRILL PRESS OPERATOR FOR METAL (Physician/DRILL PRESS OPERATOR FOR METAL (Physician/DRILL PRESS OPERATOR [employer] METAL ) ) ) Arrival Mode Wheelchair Wheelchair Wheelchair Transfer Assistance None None Patient Identification Verified (Name & Yes Yes Yes ) Patient Requires Transmission-Based No No Precautions Finger Stick Blood Sugar(mg/dl) (if 250 indicated): Blood Sugar Stated by Patient Height and Weight Body Mass Index (BMI) 26.4 26.4 26.4 BMI Classification Overweight Overweight Overweight Vital Signs Temperature (97.8 F-99.1 F) 97.1 F L 96 F L 97.2 F L Temperature Source Temporal Temporal Temporal Pulse Rate (60-100) 73 67 68 Pulse Location Monitor Monitor Monitor Respiratory Rate (12-18) 18 15 18 Respiratory rate source Observation Observation Observation Oxygen Delivery Method Room Air Blood Pressure (90/60-120/80) 115/47 L 130/56 H 112/42 L Blood Pressure Mean (mm Hg) 69 80 65 Source Monitor Monitor Monitor Position Semi-Fowlers Sitting Sitting Blood Pressure Location Left Arm Left Arm Left Arm History Since Last Visit- (Skip if this is Patient's initial visit) Have you changed medications since your No No No last visit? Any new allergies or adverse reactions No No No Had a fall/change in ADL's that may No No No increase risk of falls Signs or symptoms of abuse and/or No No No neglect since last visit Have you been in the hospital since your No No No last visit? Has dressing in place as prescribed Yes Yes Yes Has compression in place as prescribed Yes N/A Yes Has offloadiing in place as prescribed Yes N/A N/A Experienced any changes in pain level or No No No management Left Footwear Slipper Slipper Right Footwear No Footwear No Footwear Pain Scale: 0-10 Numeric Is Patient Pain Free? Yes Yes Yes - Nurse 1 - General Ulcer Measurement Start: 08/22/24 09:28 Freq: Status: Active Protocol: Activity Type Activity Date Activity User E-sign Co-sign Detail Recorded Client Recorded Date Recorded By Document 08/22/24 09:28 RB [id number] 08/22/24 09:31 RB Document 08/29/24 09:12 ML [id number] 08/29/24 09:23 ML Document 09/12/24 09:27 KW [id number] 09/12/24 09:38 KW 08/22/24 08/29/24 09/12/24 09:28 09:12 09:27 Wound Center Nurse 1 #4 right heel -Combined with other wound No -Current Size (cm) - Length 1.3 3 3 -Current Size (cm) - Width 2.7 1.5 1.4 -Current Size (cm) - Depth 0.1 0.2 0.3 -Total Square Cm 3.51 4.5 4.2 -Date of Last Picture (Recall this 09/12/24 field) -Photo Taken Yes -Tunneling No -Undermining/Tunneling No -Circular Undermining No -Exudate Amt Medium Medium Small -Exudate Type Serosanguineous Serosanguineous Serosanguineous -Wound Margin Thickened & Distinct, Rolled Under Outline Attached -Granulation Amt Medium (34-66%) Medium (34-66%) Small (1-33%) -Granulation Quality [place] -Slough/Fibrin Yes Yes -Necrosis Amt Medium (34-66%) Medium (34-66%) Large (67-100%) -Necrotic Tissue Type Adherent Slough Adherent Slough Adherent Slough -Structure Exposed N/A -Texture (Donna-wound Skin Appearance) Callus Assessed Assessed -Moisture (Donna-wound Skin Appearance) Assessed Assessed Assessed,Dry/ Scaly -Color (Donna-wound Skin Appearance) Assessed Assessed Assessed -Temperature (Donna-wound Skin No Abnormality No Abnormality No Abnormality Appearance) (Pt Warm) (Pt Warm) (Pt Warm) -Tenderness on Palpation (Donna-wound No No No Skin Appearance) -Ulcer Cleansing Wound Cleanser Not Cleansed Soap and Water -Foul Odor after Cleansing No No No -Anesthetic Used 5% Lidocaine 5% Lidocaine 5% Lidocaine Gel Gel Gel #3 right lateral foot -Combined with other wound No -Current Size (cm) - Length 1 1.5 0.3 -Current Size (cm) - Width 1 1.5 0.3 -Current Size (cm) - Depth 0.1 0.3 0.2 -Total Square Cm 1 2.25 0.09 -Date of Last Picture (Recall this 09/12/24 field) -Photo Taken Yes -Tunneling No -Undermining/Tunneling No -Circular Undermining No -Exudate Amt Medium Medium Small -Exudate Type Serosanguineous Serosanguineous Serosanguineous -Wound Margin Distinct, Thickened & Outline Rolled Under Attached -Granulation Amt Medium (34-66%) Medium (34-66%) Medium (34-66%) -Granulation Quality [place] -Slough/Fibrin Yes Yes -Necrosis Amt Medium (34-66%) Medium (34-66%) Medium (34-66%) -Necrotic Tissue Type Adherent Slough Adherent Slough Adherent Slough -Structure Exposed N/A -Texture (Donna-wound Skin Appearance) Assessed Assessed Assessed -Moisture (Donna-wound Skin Appearance) Dry/Scaly Assessed Assessed -Color (Donna-wound Skin Appearance) Assessed Assessed Assessed -Temperature (Donna-wound Skin No Abnormality No Abnormality No Abnormality Appearance) (Pt Warm) (Pt Warm) (Pt Warm) -Tenderness on Palpation (Donna-wound No No No Skin Appearance) -Ulcer Cleansing Wound Cleanser Soap and Water Soap and Water -Foul Odor after Cleansing No No No -Anesthetic Used 5% Lidocaine 5% Lidocaine 5% Lidocaine Gel Gel Gel Lower Limb Edema Present Yes Right Calf (cm) 33.5 Right Ankle (cm) 19.5 WC - Nurse 2 - General Ulcer CM Notes Start: 08/22/24 09:28 Freq: Status: Active Protocol: Activity Type Activity Date Activity User E-sign Co-sign Detail Recorded Client Recorded Date Recorded By Document 08/22/24 09:38 [id number] 08/22/24 09:42 Document 08/29/24 09:47 [facility] [id number] 08/29/24 09:56 [facility] Document 09/12/24 09:56 [id number] 09/12/24 10:02 08/22/24 08/29/24 09/12/24 09:38 09:47 09:56 Wound Center Nurse 2 #4 right heel -Time 09:48 09:56 -Correct Patient Yes Yes Yes -Correct Side, Site, Position Yes Yes Yes -Correct Procedure Yes Yes Yes -Procedure Performed Yes Yes Yes -Type of Procedure Debridement Debridement Debridement -Clinical Debridement Subcutaneous Subcutaneous Subcutaneous -Tissue Removed Subcutaneous Subcutaneous Subcutaneous -Post Debridement (cm) - Length 3.0 2.7 2.5 -Post Debridement (cm) - Width 0.8 1.2 1.2 -Post Debridement (cm) - Depth 0.2 0.2 0.2 -Total Square (Post) (cm) 2.40 3.24 3.00 -Area of Debridement (cm) - Length 3.0 2.7 2.5 -Area of Debridement (cm) - Width 0.8 1.2 1.2 -Total Square (Area) (cm) 2.40 3.24 3.00 -Tunneling No No No -Undermining/Tunneling No No No -Circular Undermining No No No -Wound/Ulcer Outcome Not Healed Not Healed Not Healed -Ulcer Cleansing Rinsed/ Rinsed/ Rinsed/ Irrigated with Irrigated with Irrigated with Saline Saline Saline -Foul Odor after Cleansing No No No -Bioengineered Tissue No No No -Bleeding Controlled with Pressure Pressure Pressure -Treatment Response Procedure Procedure Procedure Tolerated Well Tolerated Well Tolerated Well -Offloading No Yes -Type of Offloading Surgical Shoe -Debridement - Subq, 1st 20sq cm Yes Yes Yes #3 right lateral foot -Time 09:41 09:48 09:59 -Correct Patient Yes Yes Yes -Correct Side, Site, Position Yes Yes Yes -Correct Procedure Yes Yes Yes -Procedure Performed Yes Yes Yes -Type of Procedure Debridement Debridement Debridement -Clinical Debridement Subcutaneous Subcutaneous Subcutaneous -Tissue Removed Subcutaneous Subcutaneous Subcutaneous -Post Debridement (cm) - Length 1.5 1.2 1.0 -Post Debridement (cm) - Width 1.5 1.4 1.0 -Post Debridement (cm) - Depth 0.5 0.5 0.1 -Total Square (Post) (cm) 2.25 1.68 1.00 -Area of Debridement (cm) - Length 1.5 1.2 1.0 -Area of Debridement (cm) - Width 1.5 1.4 1.0 -Total Square (Area) (cm) 2.25 1.68 1.00 -Tunneling No No No -Undermining/Tunneling No No No -Circular Undermining No No No -Wound/Ulcer Outcome Not Healed Not Healed Not Healed -Ulcer Cleansing Rinsed/ Rinsed/ Rinsed/ Irrigated with Irrigated with Irrigated with Saline Saline Saline -Foul Odor after Cleansing No No No -Bioengineered Tissue Yes Yes Yes -Type of Bioengineered Tissue Epicord Epicord Epifix 18mm Disc -Expiration Date 02/15/29 09/15/28 04/17/29 -Product Lot Number [id number] -Percent Used 100 100 100 -Lot number of Saline Used [id number] -Bleeding Controlled with Pressure Pressure Pressure -Treatment Response Procedure Procedure Procedure Tolerated Well Tolerated Well Tolerated Well -Offloading No Yes -Type of Offloading Surgical Shoe -Debridement - Subq, 1st 20sq cm No No No -Apply Skin Sub - 1st 25 sq cm - Feet 1 1 1 -Epicord (per sq cm) 6 6 -Epifix 18mm Disc 3 Pain Scale: 0-10 Numeric Is Patient Pain Free? Yes Yes Yes - Nurse 3 - General Ulcer D/C NN Start: 08/22/24 09:28 Freq: Status: Active Protocol: Activity Type Activity Date Activity User E-sign Co-sign Detail Recorded Client Recorded Date Recorded By Document 08/22/24 09:57 CP [id number] 08/22/24 09:59 CP Document 08/29/24 10:09 KW [id number] 08/29/24 10:09 KW Document 09/12/24 10:18 GM [id number] 09/12/24 10:19 08/22/24 08/29/24 09/12/24 09:57 10:09 10:18 Wound Care Center Nurse 3 #4 right heel -Primary Dressing Applied C Hydrogel -Primary Dressing Covered/Secured with Dry Gauze & Dry Gauze Roll Gauze #3 right lateral foot -Primary Dressing Applied C Hydrogel -Primary Dressing Covered/Secured with Dry Gauze & Dry Gauze & Roll Gauze Roll Gauze, Secured with Tape Right -Compression Wrap Donte Wrap Donte Wrap Pain Scale: 0-10 Numeric Is Patient Pain Free? Yes Yes Yes - Visit Discharge Discharge Condition Stable Stable Stable Ambulatory Status Wheelchair Wheelchair Wheelchair Transportation Private Auto Private Auto Medication Reconcilliation completed & No No provided to patient/care provider Clinical Summary of Care Provided Yes Yes Facility Type [facility] Facility Orders Sent Yes #4 right heel -Ulcer Cleansing Not Cleansed -Foul Odor after Cleansing No -Primary Dressing Covered/Secured with Dry Gauze & Roll Gauze, Secured with Tape,Other -Other Covering abd pad #3 right lateral foot -Ulcer Cleansing Not Cleansed -Foul Odor after Cleansing No -Primary Dressing Covered/Secured with Dry Gauze Right -Lotion applied to leg before No compression wrap -Compression Wrap Donte Wrap Assessment/Plan Assessment/Plan (1) 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 All findings were discussed with the patient. All questions were answered to the patient's satisfaction. Excisional debridement down to and including subcutaneous tissue of the right posterior heel with a number 5 mm dermal curette without incident. Predebridement measurement was 2.3 x 1.1 x 0.1 cm. Postdebridement measurement is 2.5 x 1.2 x 0.2 cm. Excisional debridement down to and including subcutaneous tissue to the right TMA full-thickness ulceration with a number 5 mm dermal curette without incident. Predebridement measurement was 0.5 x 0.5 x 0.1 cm. Postdebridement measurement is 1.0 x 1.0 x 0.1 cm. EpiFix 18 mm disc graft was applied to the right full-thickness ulceration to the TMA site with 100% use. Seventh application. The graft site was free and clear of any infection. The wound/skin graft substitute was dressed with nonadherent bandage secured in place with Steri-Strips followed by bolster dressing as well as a single Tubigrip compression bandage donned to the right lower extremity. The right heel was dressed with Dakin's solution and will have daily dressing changes with Santyl nickel thick with moist gauze and dry sterile dressing to the right heel. Follow-up at the wound care center with Dr. Lyons in 1 week. (2) Non-pressure chronic ulcer of right heel and midfoot with fat layer exposed: CODE(S): L97.412 - Non-pressure chronic ulcer of right heel and midfoot with fat layer exposed
--- NOTE | 2024-09-12 16:14 | WC ---
PHOTO 09/12/24 RIGHT LAT FOOT
--- NOTE | 2024-09-12 16:14 | WC ---
PHOTO 09/12/24 RIGHT HEEL
== END 2024-09-14 23:59 | disposition home or self-care (01) ==
LOC: WC 09:30
PROVIDERS: PCP Family Medicine Geriatric Medicine; Referring Provider Podiatrist Foot & Ankle Surgery; Visit Provider Podiatrist Foot & Ankle Surgery
DX: L97.516 Non-pressure chronic ulcer of other part of right foot with bone involvement without evidence of necrosis (principal); L97.412 Non-pressure chronic ulcer of right heel and midfoot with fat layer exposed
CPT/HCPCS: 11042; 15275; Q4186; Q4187

== ENCOUNTER 2024-10-10 10:00 | Outpatient (RCR) | payer MEDICARE, MEDICAID, SELFPAY ==
[2024-09-15 02:13] VITALS: BP 112/42; PULSE 68; RESP 18; TEMP 36.2; BMI 26.4
[2024-09-19 09:20] VITALS: BP 94/33; PULSE 78; RESP 16; TEMP 36.2; BMI 26.4
--- NOTE | 2024-09-19 10:15 | PN.PCM_ITS ---
History of Present Illness Date of Service: 09/19/24 Chief Complaint: Ulcer right foot History of Wound: Patient presents to the wound care center today follow-up evaluation of full-thickness wounds to the right lower extremity. Patient was recently in the hospital for the past 2 weeks due to GI bleed was treated and discharge. He is following today for continued wound care to the right lower extremity. Progress of Wound: Full-thickness wound to the right transmetatarsal amputation site as well as right heel stable and improving. Subjective Subjective Mr. Coronel is a 73-year-old diabetic male presenting to wound care center today for follow-up evaluation of full-thickness wound to the lateral aspect of the transmetatarsal amputation site as well as heel full-thickness wound to the right lower extremity. Patient has left the amniotic skin graft substitute clean dry and intact and getting dressing changes with Santyl to the heel as written. Blood sugars well-controlled. He is ambulating as tolerated in surgical shoe. Blood sugars well-controlled. Denies trauma. Denies constitutional symptoms. No other pedal complaints at this time. Objective Data Objective Data Vital Signs: Vital Signs Temp Pulse Resp BP O2 Del Method 97.2 F L 78 16 94/33 L Room Air 09/19/24 09:20 09/19/24 09:20 09/19/24 09:20 09/19/24 09:20 09/19/24 09:20 Oxygen Delivery Method Room Air Weight: 86.183 kg Body Mass Index (BMI) 26.4 Physical Exam Narrative Vascular: DP and PT pulses are palpable to the right lower extremity. CFT is brisk to the flap to the right foot. Skin temperature great is warm to warm from proximal ankles to distal digits. Skin temperature and turgor is within normal limits. Neurological: Light touch intact. Patient does not respond to painful stimuli. Dermatological: Right transmetatarsal amputation stump laterally wound measures 0.9 x 1.1 x 0.1 cm. Negative probe to bone. No drainage no sign of infection. Right heel full-thickness wound measures 2.7 x 1.1 x 0.2 cm. All wounds are stable. Excisional debridement down to and including subcutaneous tissue of the right posterior heel with a number 5 mm dermal curette without incident. Predebridement measurement was 2.5 x 1.0 x 0.1 cm. Postdebridement measurement is 2.7 x 1.1 x 0.2 cm. Excisional debridement down to and including subcutaneous tissue to the right TMA full-thickness ulceration with a number 5 mm dermal curette without incident. Predebridement measurement was 0.3 x 0.6 x 0.1 cm. Postdebridement measurement is 0.9 x 1.1 x 0.1 cm. EpiFix 18 mm disc graft was applied to the right full-thickness ulceration to the TMA site with 100% use. 8th application. The graft site was free and clear of any infection. The wound/skin graft substitute was dressed with nonadherent bandage secured in place with Steri-Strips followed by bolster dressing as well as a single Tubigrip compression bandage donned to the right lower extremity. Musculoskeletal:. Muscle strength is 5 out of 5 in all quadrants to the right lower extremity. No pain to palpation to the full-thickness wounds to the right lower extremity. No pain with calf pressure. Debridement Note Debridement Note Debridement Free Text: Excisional debridement down to and including subcutaneous tissue of the right posterior heel with a number 5 mm dermal curette without incident. Predebridement measurement was 2.5 x 1.0 x 0.1 cm. Postdebridement measurement is 2.7 x 1.1 x 0.2 cm. Excisional debridement down to and including subcutaneous tissue to the right TMA full-thickness ulceration with a number 5 mm dermal curette without incident. Predebridement measurement was 0.3 x 0.6 x 0.1 cm. Postdebridement measurement is 0.9 x 1.1 x 0.1 cm. EpiFix 18 mm disc graft was applied to the right full-thickness ulceration to the TMA site with 100% use. 8th application. The graft site was free and clear of any infection. The wound/skin graft substitute was dressed with nonadherent bandage secured in place with Steri-Strips followed by bolster dressing as well as a single Tubigrip compression bandage donned to the right lower extremity. Post-Debridement Measurements and Additional Note: Post-Debridement Measurements/Treatment DOLORES - Nurse 1 - General Ulcer Assessment Start: 09/19/24 09:20 Freq: Status: Active Protocol: YOCASTA Activity Type Activity Date Activity User E-sign Co-sign Detail Recorded Client Recorded Date Recorded By Document 09/19/24 09:20 KW [id number] 09/19/24 09:22 KW 09/19/24 09:20 WC - Today's Visit Information Type of service Follow-up Visit (Physician/ATMOSPHERIC TECHNICIAN ) Arrival Mode Wheelchair Patient Identification Verified (Name & Yes ) Height and Weight Body Mass Index (BMI) 26.4 BMI Classification Overweight Vital Signs Temperature (97.8 F-99.1 F) 97.2 F L Temperature Source Temporal Pulse Rate (60-100) 78 Pulse Location Monitor Respiratory Rate (12-18) 16 Respiratory rate source Monitor Oxygen Delivery Method Room Air Blood Pressure (90/60-120/80) 94/33 L Blood Pressure Mean (mm Hg) 53 Source Monitor Position Semi-Fowlers Blood Pressure Location Right Arm History Since Last Visit- (Skip if this is Patient's initial visit) Have you changed medications since your No last visit? Any new allergies or adverse reactions No Had a fall/change in ADL's that may No increase risk of falls Signs or symptoms of abuse and/or No neglect since last visit Have you been in the hospital since your No last visit? Has dressing in place as prescribed Yes Has compression in place as prescribed N/A Has offloadiing in place as prescribed Yes Experienced any changes in pain level or No management Left Footwear Regular Shoe Right Footwear Surgical Shoe with pressure relief insole Pain Scale: 0-10 Numeric Is Patient Pain Free? Yes - Nurse 1 - General Ulcer Measurement Start: 09/19/24 09:20 Freq: Status: Active Protocol: Activity Type Activity Date Activity User E-sign Co-sign Detail Recorded Client Recorded Date Recorded By Document 09/19/24 09:20 KW [id number] 09/19/24 09:22 KW 09/19/24 09:20 Wound Center Nurse 1 #4 right heel -Current Size (cm) - Length 2 -Current Size (cm) - Width 1.1 -Current Size (cm) - Depth 0.2 -Total Square Cm 2.2 -Date of Last Picture (Recall this 09/19/24 field) -Epithelialization Medium 34-66% -Exudate Amt Small -Exudate Type Serosanguineous -Granulation Amt Large (67-100%) -Granulation Quality Red -Necrosis Amt Small (1-33%) -Necrotic Tissue Type Adherent Slough -Texture (Donna-wound Skin Appearance) Assessed -Moisture (Donna-wound Skin Appearance) Assessed, Maceration -Color (Donna-wound Skin Appearance) Assessed -Temperature (Donna-wound Skin No Abnormality Appearance) (Pt Warm) -Tenderness on Palpation (Donna-wound No Skin Appearance) -Ulcer Cleansing Soap and Water -Foul Odor after Cleansing No -Anesthetic Used 5% Lidocaine Gel #3 right lateral foot -Current Size (cm) - Length 0.7 -Current Size (cm) - Width 1.1 -Current Size (cm) - Depth 0.1 -Total Square Cm 0.77 -Date of Last Picture (Recall this 09/19/24 field) -Epithelialization Medium 34-66% -Exudate Amt Small -Exudate Type Sanguineous -Granulation Amt Medium (34-66%) -Granulation Quality [place] -Necrosis Amt Small (1-33%) -Necrotic Tissue Type Adherent Slough -Texture (Donna-wound Skin Appearance) Assessed -Color (Donna-wound Skin Appearance) Assessed -Temperature (Donna-wound Skin No Abnormality Appearance) (Pt Warm) -Tenderness on Palpation (Donna-wound No Skin Appearance) -Ulcer Cleansing Soap and Water -Foul Odor after Cleansing No -Anesthetic Used 5% Lidocaine Gel WC - Nurse 2 - General Ulcer CM Notes Start: 09/19/24 09:20 Freq: Status: Active Protocol: Activity Type Activity Date Activity User E-sign Co-sign Detail Recorded Client Recorded Date Recorded By Document 09/19/24 09:31 NESS [id number] 09/19/24 09:38 NESS 09/19/24 09:31 Wound Center Nurse 2 #4 right heel -Time 09:32 -Correct Patient Yes -Correct Side, Site, Position Yes -Correct Procedure Yes -Procedure Performed Yes -Type of Procedure Debridement -Clinical Debridement Subcutaneous -Tissue Removed Subcutaneous -Post Debridement (cm) - Length 2.7 -Post Debridement (cm) - Width 1.1 -Post Debridement (cm) - Depth 0.2 -Total Square (Post) (cm) 2.97 -Area of Debridement (cm) - Length 2.7 -Area of Debridement (cm) - Width 1.1 -Total Square (Area) (cm) 2.97 -Tunneling No -Undermining/Tunneling No -Circular Undermining No -Wound/Ulcer Outcome Not Healed -Ulcer Cleansing Rinsed/ Irrigated with Saline -Foul Odor after Cleansing No -Bioengineered Tissue No -Bleeding Controlled with Pressure -Treatment Response Procedure Tolerated Well -Offloading Yes -Type of Offloading Surgical Shoe -Debridement - Subq, 1st 20sq cm Yes #3 right lateral foot -Time 09:32 -Correct Patient Yes -Correct Side, Site, Position Yes -Correct Procedure Yes -Procedure Performed Yes -Type of Procedure Debridement -Clinical Debridement Subcutaneous -Tissue Removed Subcutaneous -Post Debridement (cm) - Length 0.9 -Post Debridement (cm) - Width 1.1 -Post Debridement (cm) - Depth 0.1 -Total Square (Post) (cm) 0.99 -Area of Debridement (cm) - Length 0.9 -Area of Debridement (cm) - Width 1.1 -Total Square (Area) (cm) 0.99 -Tunneling No -Undermining/Tunneling No -Circular Undermining No -Wound/Ulcer Outcome Not Healed -Ulcer Cleansing Rinsed/ Irrigated with Saline -Foul Odor after Cleansing No -Bioengineered Tissue Yes -Type of Bioengineered Tissue Epifix 18mm Disc -Expiration Date 04/17/29 -Product Lot Number [id number] -Percent Used 100 -Lot number of Saline Used [id number] -Bleeding Controlled with Pressure -Treatment Response Procedure Tolerated Well -Offloading Yes -Type of Offloading Surgical Shoe -Debridement - Subq, 1st 20sq cm No -Apply Skin Sub - 1st 25 sq cm - Feet 1 -Epifix 18mm Disc 3 Pain Scale: 0-10 Numeric Is Patient Pain Free? Yes - Nurse 3 - General Ulcer D/C NN Start: 09/19/24 09:20 Freq: Status: Active Protocol: Activity Type Activity Date Activity User E-sign Co-sign Detail Recorded Client Recorded Date Recorded By Document 09/19/24 09:43 KW [id number] 09/19/24 09:46 KW 09/19/24 09:43 Wound Care Center Nurse 3 #4 right heel -Other Dressing to apply santyl , today is hydrogel -Primary Dressing Covered/Secured with Dry Gauze & Roll Gauze, Secured with Tape #3 right lateral foot -Primary Dressing Covered/Secured with Dry Gauze Pain Scale: 0-10 Numeric Is Patient Pain Free? Yes - Visit Discharge Discharge Condition Stable Ambulatory Status Walker Transportation Private Auto Medication Reconcilliation completed & No provided to patient/care provider Clinical Summary of Care Provided Yes Assessment/Plan Assessment/Plan (1) Non-pressure chronic ulcer of other part of right foot with fat layer exposed: CODE(S): L97.512 - Non-pressure chronic ulcer of other part of right foot with fat layer exposed PLAN: Patient was examined and evaluated. All findings were discussed with the patient. All questions were answered to the patient's satisfaction. Excisional debridement down to and including subcutaneous tissue of the right posterior heel with a number 5 mm dermal curette without incident. Predebridement measurement was 2.5 x 1.0 x 0.1 cm. Postdebridement measurement is 2.7 x 1.1 x 0.2 cm. The right heel wound was dressed with Santyl nickel thick with moist gauze and dry sterile dressing. Excisional debridement down to and including subcutaneous tissue to the right TMA full-thickness ulceration with a number 5 mm dermal curette without incident. Predebridement measurement was 0.3 x 0.6 x 0.1 cm. Postdebridement measurement is 0.9 x 1.1 x 0.1 cm. EpiFix 18 mm disc graft was applied to the right full-thickness ulceration to the TMA site with 100% use. 8th application. The graft site was free and clear of any infection. The wound/skin graft substitute was dressed with nonadherent bandage secured in place with Steri-Strips followed by bolster dressing as well as a single Tubigrip compression bandage donned to the right lower extremity. Dressing changes will be done as written. Patient will continue physical therapy and self ambulation in surgical shoe as tolerated. Continue strict blood sugar control. Follow-up at the wound care center with Dr. Lyons in 1 week. (2) Non-pressure chronic ulcer of right heel and midfoot with fat layer exposed: CODE(S): L97.412 - Non-pressure chronic ulcer of right heel and midfoot with fat layer exposed
--- NOTE | 2024-09-19 14:55 | WC ---
PHOTO 09/19/24 RIGHT LATERAL FOOT
--- NOTE | 2024-09-19 14:57 | WC ---
PHOTO 09/19/24 RIGHT HEEL
[2024-09-26 09:18] VITALS: BP 114/41; PULSE 66; RESP 16; TEMP 36.1; BMI 26.4
--- NOTE | 2024-09-26 12:21 | PCM.WC.PN ---
History of Present Illness Date of Service: 09/19/24 Chief Complaint: Ulcer right foot History of Wound: Patient presents to the wound care center today follow-up evaluation of full-thickness wounds to the right lower extremity. Patient was recently in the hospital for the past 2 weeks due to GI bleed was treated and discharge. He is following today for continued wound care to the right lower extremity. Progress of Wound: Full-thickness wound to the right transmetatarsal amputation site as well as right heel stable and improving. Subjective Subjective Mr. Coronel is a 73-year-old diabetic male presenting to wound care center today for follow-up evaluation of full-thickness wound to the lateral aspect of the transmetatarsal amputation site as well as heel full-thickness wound to the right lower extremity. Patient has left the amniotic skin graft substitute clean dry and intact and getting dressing changes with Santyl to the heel as written. Blood sugars well-controlled. He is ambulating as tolerated in surgical shoe. Blood sugars well-controlled. Denies trauma. Denies constitutional symptoms. No other pedal complaints at this time. Objective Data Objective Data Vital Signs: Vital Signs Temp Pulse Resp BP O2 Del Method 97.0 F L 66 16 114/41 L Room Air 09/26/24 09:18 09/26/24 09:18 09/26/24 09:18 09/26/24 09:18 09/26/24 09:18 Oxygen Delivery Method Room Air Weight: 86.183 kg Body Mass Index (BMI) 26.4 Physical Exam Narrative Vascular: DP and PT pulses are palpable to the right lower extremity. CFT is brisk to the flap to the right foot. Skin temperature great is warm to warm from proximal ankles to distal digits. Skin temperature and turgor is within normal limits. Neurological: Light touch intact. Patient does not respond to painful stimuli. Dermatological: Right transmetatarsal amputation stump laterally wound measures 0.8 x 0.9 x 0.2 cm. Negative probe to bone. No drainage no sign of infection. Right heel full-thickness wound measures 2.4 x 1.1 x 0.2 cm. All wounds are stable. Excisional debridement down to and including subcutaneous tissue of the right posterior heel with a number 5 mm dermal curette without incident. Predebridement measurement was 2.3 x 1.0 x 0.1 cm. Postdebridement measurement is 2.4 x 1.1 x 0.2 cm. Excisional debridement down to and including subcutaneous tissue to the right TMA full-thickness ulceration with a number 5 mm dermal curette without incident. Predebridement measurement was graft. postdebridement measurement is 0.8 x 0.9 x 0.2 cm. EpiFix 18 mm disc graft was applied to the right full-thickness ulceration to the TMA site with 100% use. 10th application. The graft site was free and clear of any infection. The wound/skin graft substitute was dressed with nonadherent bandage secured in place with Steri-Strips followed by bolster dressing as well as a single Tubigrip compression bandage donned to the right lower extremity. Musculoskeletal:. Muscle strength is 5 out of 5 in all quadrants to the right lower extremity. No pain to palpation to the full-thickness wounds to the right lower extremity. No pain with calf pressure. Debridement Note Debridement Note Debridement Free Text: Excisional debridement down to and including subcutaneous tissue of the right posterior heel with a number 5 mm dermal curette without incident. Predebridement measurement was 2.3 x 1.0 x 0.1 cm. Postdebridement measurement is 2.4 x 1.1 x 0.2 cm. Excisional debridement down to and including subcutaneous tissue to the right TMA full-thickness ulceration with a number 5 mm dermal curette without incident. Predebridement measurement was graft. postdebridement measurement is 0.8 x 0.9 x 0.2 cm. EpiFix 18 mm disc graft was applied to the right full-thickness ulceration to the TMA site with 100% use. 10th application. The graft site was free and clear of any infection. The wound/skin graft substitute was dressed with nonadherent bandage secured in place with Steri-Strips followed by bolster dressing as well as a single Tubigrip compression bandage donned to the right lower extremity. Post-Debridement Measurements and Additional Note: Post-Debridement Measurements/Treatment WC - Nurse 1 - General Ulcer Assessment Start: 09/19/24 09:20 Freq: Status: Active Protocol: LOWEXT Activity Type Activity Date Activity User E-sign Co-sign Detail Recorded Client Recorded Date Recorded By Document 09/19/24 09:20 KW [id number] 09/19/24 09:22 KW Document 09/26/24 09:18 [id number] 09/26/24 09:30 09/19/24 09/26/24 09:20 09:18 - Today's Visit Information Type of service Follow-up Visit Follow-up Visit (Physician/METER SHOP SUPERVISOR (Physician/METER [employer]OP SUPERVISOR ) ) Arrival Mode Wheelchair Wheelchair Transfer Assistance None Patient Identification Verified (Name & Yes Yes ) Patient Requires Transmission-Based No Precautions Height and Weight Body Mass Index (BMI) 26.4 26.4 BMI Classification Overweight Overweight Vital Signs Temperature (97.8 F-99.1 F) 97.2 F L 97.0 F L Temperature Source Temporal Temporal Pulse Rate (60-100) 78 66 Pulse Location Monitor Monitor Respiratory Rate (12-18) 16 16 Respiratory rate source Monitor Observation Oxygen Delivery Method Room Air Room Air Blood Pressure (90/60-120/80) 94/33 L 114/41 L Blood Pressure Mean (mm Hg) 53 65 Source Monitor Monitor Position Semi-Fowlers Sitting Blood Pressure Location Right Arm Left Arm History Since Last Visit- (Skip if this is Patient's initial visit) Have you changed medications since your No No last visit? Any new allergies or adverse reactions No No Had a fall/change in ADL's that may No No increase risk of falls Signs or symptoms of abuse and/or No No neglect since last visit Have you been in the hospital since your No No last visit? Has dressing in place as prescribed Yes Yes Has compression in place as prescribed N/A Yes Has offloadiing in place as prescribed Yes Yes Experienced any changes in pain level or No No management Left Footwear Regular Shoe Slipper Right Footwear Surgical Shoe Surgical Shoe with pressure with pressure relief insole relief insole Pain Scale: 0-10 Numeric Is Patient Pain Free? Yes Yes - Nurse 1 - General Ulcer Measurement Start: 09/19/24 09:20 Freq: Status: Active Protocol: Activity Type Activity Date Activity User E-sign Co-sign Detail Recorded Client Recorded Date Recorded By Document 09/19/24 09:20 KW [id number] 09/19/24 09:22 KW Document 09/26/24 09:18 [id number] 09/26/24 09:30 09/19/24 09/26/24 09:20 09:18 Wound Center Nurse 1 #4 right heel -Current Size (cm) - Length 2 1.0 -Current Size (cm) - Width 1.1 2.0 -Current Size (cm) - Depth 0.2 0.4 -Total Square Cm 2.2 2.00 -Date of Last Picture (Recall this 09/19/24 field) -Photo Taken No -Epithelialization Medium 34-66% Small 1-33% -Tunneling No -Undermining/Tunneling No -Circular Undermining No -Exudate Amt Small Medium -Exudate Type Serosanguineous Serosanguineous -Wound Margin Distinct, Outline Attached -Granulation Amt Large (67-100%) Medium (34-66%) -Granulation Quality Red -Slough/Fibrin No -Necrosis Amt Small (1-33%) Small (1-33%) -Necrotic Tissue Type Adherent Slough -Texture (Donna-wound Skin Appearance) Assessed Assessed -Moisture (Donna-wound Skin Appearance) Assessed, Assessed Maceration -Color (Donna-wound Skin Appearance) Assessed Assessed -Temperature (Donna-wound Skin No Abnormality No Abnormality Appearance) (Pt Warm) (Pt Warm) -Tenderness on Palpation (Donna-wound No No Skin Appearance) -Ulcer Cleansing Soap and Water Soap and Water -Foul Odor after Cleansing No No -Anesthetic Used 5% Lidocaine 5% Lidocaine Gel Gel #3 right lateral foot -Current Size (cm) - Length 0.7 1.0 -Current Size (cm) - Width 1.1 0.7 -Current Size (cm) - Depth 0.1 0.2 -Total Square Cm 0.77 0.70 -Date of Last Picture (Recall this 09/19/24 field) -Photo Taken No -Epithelialization Medium 34-66% Medium 34-66% -Tunneling No -Undermining/Tunneling No -Circular Undermining No -Exudate Amt Small Small -Exudate Type Sanguineous Serosanguineous -Wound Margin Distinct, Outline Attached -Granulation Amt Medium (34-66%) Medium (34-66%) -Granulation Quality [place] -Slough/Fibrin Yes -Necrosis Amt Small (1-33%) Small (1-33%) -Necrotic Tissue Type Adherent Slough Adherent Slough -Texture (Donna-wound Skin Appearance) Assessed Assessed -Moisture (Donna-wound Skin Appearance) Assessed -Color (Donna-wound Skin Appearance) Assessed Assessed -Temperature (Donna-wound Skin No Abnormality No Abnormality Appearance) (Pt Warm) (Pt Warm) -Tenderness on Palpation (Donna-wound No No Skin Appearance) -Ulcer Cleansing Soap and Water Soap and Water -Foul Odor after Cleansing No No -Anesthetic Used 5% Lidocaine 5% Lidocaine Gel Gel WC - Nurse 2 - General Ulcer CM Notes Start: 09/19/24 09:20 Freq: Status: Active Protocol: Activity Type Activity Date Activity User E-sign Co-sign Detail Recorded Client Recorded Date Recorded By Document 09/19/24 09:31 [id number] 09/19/24 09:38 Document 09/26/24 09:54 [id number] 09/26/24 09:56 09/19/24 09/26/24 09:31 09:54 Wound Center Nurse 2 #4 right heel -Time 09:32 09:54 -Correct Patient Yes Yes -Correct Side, Site, Position Yes Yes -Correct Procedure Yes Yes -Procedure Performed Yes Yes -Type of Procedure Debridement Debridement -Clinical Debridement Subcutaneous Subcutaneous -Tissue Removed Subcutaneous Subcutaneous -Post Debridement (cm) - Length 2.7 2.4 -Post Debridement (cm) - Width 1.1 1.1 -Post Debridement (cm) - Depth 0.2 0.2 -Total Square (Post) (cm) 2.97 2.64 -Area of Debridement (cm) - Length 2.7 2.4 -Area of Debridement (cm) - Width 1.1 1.1 -Total Square (Area) (cm) 2.97 2.64 -Tunneling No No -Undermining/Tunneling No No -Circular Undermining No No -Wound/Ulcer Outcome Not Healed Not Healed -Ulcer Cleansing Rinsed/ Rinsed/ Irrigated with Irrigated with Saline Saline -Foul Odor after Cleansing No No -Bioengineered Tissue No No -Bleeding Controlled with Pressure Silver Nitrate -Treatment Response Procedure Procedure Tolerated Well Tolerated Well -Offloading Yes No -Type of Offloading Surgical Shoe -Debridement - Subq, 1st 20sq cm Yes Yes #3 right lateral foot -Time 09:32 09:54 -Correct Patient Yes Yes -Correct Side, Site, Position Yes Yes -Correct Procedure Yes Yes -Procedure Performed Yes -Type of Procedure Debridement Debridement -Clinical Debridement Subcutaneous Subcutaneous -Tissue Removed Subcutaneous Subcutaneous -Post Debridement (cm) - Length 0.9 0.8 -Post Debridement (cm) - Width 1.1 0.9 -Post Debridement (cm) - Depth 0.1 0.2 -Total Square (Post) (cm) 0.99 0.72 -Area of Debridement (cm) - Length 0.9 0.8 -Area of Debridement (cm) - Width 1.1 0.9 -Total Square (Area) (cm) 0.99 0.72 -Tunneling No -Undermining/Tunneling No No -Circular Undermining No No -Wound/Ulcer Outcome Not Healed Not Healed -Ulcer Cleansing Rinsed/ Rinsed/ Irrigated with Irrigated with Saline Saline -Foul Odor after Cleansing No No -Bioengineered Tissue Yes Yes -Type of Bioengineered Tissue Epifix 18mm Epifix 18mm Disc Disc -Expiration Date 04/17/29 04/17/29 -Product Lot Number [id number] -Percent Used 100 100 -Lot number of Saline Used [id number] -Bleeding Controlled with Pressure Pressure -Treatment Response Procedure Procedure Tolerated Well Tolerated Well -Offloading Yes Yes -Type of Offloading Surgical Shoe Surgical Shoe -Debridement - Subq, 1st 20sq cm No No -Apply Skin Sub - 1st 25 sq cm - Feet 1 1 -Epifix 18mm Disc 3 3 Pain Scale: 0-10 Numeric Is Patient Pain Free? Yes Yes - Nurse 3 - General Ulcer D/C NN Start: 09/19/24 09:20 Freq: Status: Active Protocol: Activity Type Activity Date Activity User E-sign Co-sign Detail Recorded Client Recorded Date Recorded By Document 09/19/24 09:43 KW [id number] 09/19/24 09:46 KW Document 09/26/24 10:01 KW [id number] 09/26/24 10:02 KW 09/19/24 09/26/24 09:43 10:01 Wound Care Center Nurse 3 #4 right heel -Other Dressing to apply santyl , today is hydrogel -Primary Dressing Covered/Secured with Dry Gauze & Dry Gauze Roll Gauze, Secured with Tape #3 right lateral foot -Primary Dressing Covered/Secured with Dry Gauze Dry Gauze & Roll Gauze, Secured with Tape RLE -Compression Wrap Donte Wrap Pain Scale: 0-10 Numeric Is Patient Pain Free? Yes Yes - Visit Discharge Discharge Condition Stable Stable Ambulatory Status Walker Wheelchair Transportation Private Auto Medication Reconcilliation completed & No No provided to patient/care provider Clinical Summary of Care Provided Yes Yes Assessment/Plan Assessment/Plan (1) Non-pressure chronic ulcer of other part of right foot with fat layer exposed: CODE(S): L97.512 - Non-pressure chronic ulcer of other part of right foot with fat layer exposed PLAN: Patient was examined and evaluated. All findings were discussed with the patient. All questions were answered to the patient's satisfaction. Excisional debridement down to and including subcutaneous tissue of the right posterior heel with a number 5 mm dermal curette without incident. Predebridement measurement was 2.3 x 1.0 x 0.1 cm. Postdebridement measurement is 2.4 x 1.1 x 0.2 cm. Excisional debridement down to and including subcutaneous tissue to the right TMA full-thickness ulceration with a number 5 mm dermal curette without incident. Predebridement measurement was graft. postdebridement measurement is 0.8 x 0.9 x 0.2 cm. EpiFix 18 mm disc graft was applied to the right full-thickness ulceration to the TMA site with 100% use. 10th application. The graft site was free and clear of any infection. The wound/skin graft substitute was dressed with nonadherent bandage secured in place with Steri-Strips followed by bolster dressing as well as a single Tubigrip compression bandage donned to the right lower extremity. Dressing changes will be done as written. Patient will continue physical therapy and self ambulation in surgical shoe as tolerated. Continue strict blood sugar control. Follow-up at the wound care center with Dr. Lyons in 1 week. (2) Non-pressure chronic ulcer of right heel and midfoot with fat layer exposed: CODE(S): L97.412 - Non-pressure chronic ulcer of right heel and midfoot with fat layer exposed
[2024-10-10 10:06] VITALS: BP 135/57; PULSE 72; RESP 16; TEMP 36.1; BMI 26.4
--- NOTE | 2024-10-10 14:04 | PCM.WC.PN ---
History of Present Illness Date of Service: 10/10/24 Chief Complaint: Ulcer right foot History of Wound: Patient presents to the wound care center today follow-up evaluation of full-thickness wounds to the right lower extremity. Patient was recently in the hospital for the past 2 weeks due to GI bleed was treated and discharge. He is following today for continued wound care to the right lower extremity. Progress of Wound: Full-thickness wound to the right transmetatarsal amputation site and right heel stable with no sign of infection. Subjective Subjective Mr. Coronel is a 73-year-old diabetic male presented wound care center today for follow-up evaluation of full-thickness wound to the transmetatarsal amputation site as well as heel full-thickness wound to right lower extremity. Patient missed his appointment last week secondary to having no transportation. His blood sugars well-controlled. Denies trauma. Denies constitutional symptoms. No other pedal complaints at this time. Objective Data Objective Data Vital Signs: Vital Signs Temp Pulse Resp BP O2 Del Method 97.0 F L 72 16 135/57 H Room Air 10/10/24 10:06 10/10/24 10:06 10/10/24 10:06 10/10/24 10:06 10/10/24 10:06 Oxygen Delivery Method Room Air Weight: 86.183 kg Body Mass Index (BMI) 26.4 Physical Exam Narrative Vascular: DP and PT pulses are palpable to the right lower extremity. CFT is brisk to the flap to the right foot. Skin temperature great is warm to warm from proximal ankles to distal digits. Neurological: Light touch intact. Patient does not respond to painful stimuli. Dermatological: Right transmetatarsal amputation site full-thickness wound measures 1.4 x 1.5 x 0.3 cm. Full-thickness wound to the right heel measuring 2.0 x 0.8 x 0.2 cm. All wounds are granular nature with no sign of infection. Excisional debridement down to and including subcutaneous tissue of the right posterior heel with a number 5 mm dermal curette without incident. Predebridement measurement was 1.8 x 0.7 x 0.1 cm. Postdebridement measurement is 2.0 x 0.8 x 0.2 cm. EpiCord 2.0 x 3.0 cm graft was applied to the right heel full-thickness ulceration with 100% use. First application. The graft site was free and clear of any infection. The wound/skin graft substitute was dressed with nonadherent bandage secured in place with Steri-Strips followed by bolster dressing as well as a single Tubigrip compression bandage donned to the right lower extremity. Excisional debridement down to and including subcutaneous tissue to the right TMA full-thickness ulceration with a number 5 mm dermal curette without incident. Predebridement measurement was callus. postdebridement measurement is 1.4 x 1.5 x 0.3 cm. Musculoskeletal:. Muscle strength is 5 out of 5 in all quadrants to the right lower extremity. No pain to palpation to the full-thickness wounds to the right lower extremity. No pain with calf pressure. Debridement Note Debridement Note Post-Debridement Measurements and Additional Note: Post-Debridement Measurements/Treatment - Nurse 1 - General Ulcer Assessment Start: 09/19/24 09:20 Freq: Status: Active Protocol: [email or web address].LOWEXT Activity Type Activity Date Activity User E-sign Co-sign Detail Recorded Client Recorded Date Recorded By Document 09/19/24 09:20 KW [id number] 09/19/24 09:22 KW Document 09/26/24 09:18 GM [id number] 09/26/24 09:30 GM Document 10/10/24 10:06 KW [id number] 10/10/24 10:20 KW 09/19/24 09/26/24 10/10/24 09:20 09:18 10:06 - Today's Visit Information Type of service Follow-up Visit Follow-up Visit Follow-up Visit (Physician/INTELLIGENCE SPECIALIST (Physician/INTELLIGENCE SPECIALIST (Physician/INTELLIGENCE SPECIALIST ) ) ) Arrival Mode Wheelchair Wheelchair Wheelchair Transfer Assistance None Patient Identification Verified (Name & Yes Yes Yes ) Patient Requires Transmission-Based No Precautions Height and Weight Body Mass Index (BMI) 26.4 26.4 26.4 BMI Classification Overweight Overweight Overweight Vital Signs Temperature (97.8 F-99.1 F) 97.2 F L 97.0 F L 97.0 F L Temperature Source Temporal Temporal Temporal Pulse Rate (60-100) 78 66 72 Pulse Location Monitor Monitor Monitor Respiratory Rate (12-18) 16 16 16 Respiratory rate source Monitor Observation Observation Oxygen Delivery Method Room Air Room Air Room Air Blood Pressure (90/60-120/80) 94/33 L 114/41 L 135/57 H Blood Pressure Mean (mm Hg) 53 65 83 Source Monitor Monitor Monitor Position Semi-Fowlers Sitting Semi-Fowlers Blood Pressure Location Right Arm Left Arm Left Arm History Since Last Visit- (Skip if this is Patient's initial visit) Have you changed medications since your No No No last visit? Any new allergies or adverse reactions No No No Had a fall/change in ADL's that may No No No increase risk of falls Signs or symptoms of abuse and/or No No No neglect since last visit Have you been in the hospital since your No No No last visit? Has dressing in place as prescribed Yes Yes Yes Has compression in place as prescribed N/A Yes Yes Has offloadiing in place as prescribed Yes Yes Yes Experienced any changes in pain level or No No No management Left Footwear Regular Shoe Slipper Regular Shoe Right Footwear Surgical Shoe Surgical Shoe Surgical Shoe with pressure with pressure with pressure relief insole relief insole relief insole Pain Scale: 0-10 Numeric Is Patient Pain Free? Yes Yes Yes WC - Nurse 1 - General Ulcer Measurement Start: 09/19/24 09:20 Freq: Status: Active Protocol: Activity Type Activity Date Activity User E-sign Co-sign Detail Recorded Client Recorded Date Recorded By Document 09/19/24 09:20 KW [id number] 09/19/24 09:22 KW Document 09/26/24 09:18 [id number] 09/26/24 09:30 Document 10/10/24 10:06 KW [id number] 10/10/24 10:20 KW 09/19/24 09/26/24 10/10/24 09:20 09:18 10:06 Wound Center Nurse 1 #4 right heel -Current Size (cm) - Length 2 1.0 0.1 -Current Size (cm) - Width 1.1 2.0 0.1 -Current Size (cm) - Depth 0.2 0.4 0.1 -Total Square Cm 2.2 2.00 0.01 -Date of Last Picture (Recall this 09/19/24 10/10/24 field) -Photo Taken No -Epithelialization Medium 34-66% Small 1-33% -Tunneling No -Undermining/Tunneling No -Circular Undermining No -Exudate Amt Small Medium Small -Exudate Type Serosanguineous Serosanguineous Serosanguineous -Wound Margin Distinct, Distinct, Outline Outline Attached Attached -Granulation Amt Large (67-100%) Medium (34-66%) Medium (34-66%) -Granulation Quality Red Weinert -Slough/Fibrin No -Necrosis Amt Small (1-33%) Small (1-33%) Small (1-33%) -Necrotic Tissue Type Adherent Slough -Texture (Donna-wound Skin Appearance) Assessed Assessed Assessed -Moisture (Donna-wound Skin Appearance) Assessed, Assessed Assessed,Dry/ Maceration Scaly -Color (Donna-wound Skin Appearance) Assessed Assessed Assessed -Temperature (Donna-wound Skin No Abnormality No Abnormality No Abnormality Appearance) (Pt Warm) (Pt Warm) (Pt Warm) -Tenderness on Palpation (Donna-wound No No No Skin Appearance) -Ulcer Cleansing Soap and Water Soap and Water Soap and Water -Foul Odor after Cleansing No No No -Anesthetic Used 5% Lidocaine 5% Lidocaine 5% Lidocaine Gel Gel Gel -Wound Comment(s) not measured during nurse 1 #3 right lateral foot -Current Size (cm) - Length 0.7 1.0 0.1 -Current Size (cm) - Width 1.1 0.7 0.1 -Current Size (cm) - Depth 0.1 0.2 0.1 -Total Square Cm 0.77 0.70 0.01 -Date of Last Picture (Recall this 09/19/24 10/10/24 field) -Photo Taken No -Epithelialization Medium 34-66% Medium 34-66% -Tunneling No -Undermining/Tunneling No -Circular Undermining No -Exudate Amt Small Small Small -Exudate Type Sanguineous Serosanguineous Serosanguineous -Wound Margin Distinct, Distinct, Outline Outline Attached Attached -Granulation Amt Medium (34-66%) Medium (34-66%) Medium (34-66%) -Granulation Quality Weinert Weinert Weinert -Slough/Fibrin Yes -Necrosis Amt Small (1-33%) Small (1-33%) Medium (34-66%) -Necrotic Tissue Type Adherent Slough Adherent Slough Adherent Slough -Texture (Donna-wound Skin Appearance) Assessed Assessed Assessed -Moisture (Donna-wound Skin Appearance) Assessed Assessed,Dry/ Scaly -Color (Donna-wound Skin Appearance) Assessed Assessed Assessed -Temperature (Donna-wound Skin No Abnormality No Abnormality No Abnormality Appearance) (Pt Warm) (Pt Warm) (Pt Warm) -Tenderness on Palpation (Donna-wound No No No Skin Appearance) -Ulcer Cleansing Soap and Water Soap and Water Soap and Water -Foul Odor after Cleansing No No No -Anesthetic Used 5% Lidocaine 5% Lidocaine 5% Lidocaine Gel Gel Gel -Wound Comment(s) not measured during nurse 1 WC - Nurse 2 - General Ulcer CM Notes Start: 09/19/24 09:20 Freq: Status: Active Protocol: Activity Type Activity Date Activity User E-sign Co-sign Detail Recorded Client Recorded Date Recorded By Document 09/19/24 09:31 [id number] 09/19/24 09:38 Document 09/26/24 09:54 [id number] 09/26/24 09:56 Document 10/10/24 10:34 [id number] 10/10/24 10:43 09/19/24 09/26/24 10/10/24 09:31 09:54 10:34 Wound Center Nurse 2 #4 right heel -Time 09:32 09:54 10:34 -Correct Patient Yes Yes Yes -Correct Side, Site, Position Yes Yes Yes -Correct Procedure Yes Yes Yes -Procedure Performed Yes Yes Yes -Type of Procedure Debridement Debridement Debridement -Clinical Debridement Subcutaneous Subcutaneous Subcutaneous -Tissue Removed Subcutaneous Subcutaneous Subcutaneous -Post Debridement (cm) - Length 2.7 2.4 2.0 -Post Debridement (cm) - Width 1.1 1.1 0.8 -Post Debridement (cm) - Depth 0.2 0.2 0.2 -Total Square (Post) (cm) 2.97 2.64 1.60 -Area of Debridement (cm) - Length 2.7 2.4 2.0 -Area of Debridement (cm) - Width 1.1 1.1 0.8 -Total Square (Area) (cm) 2.97 2.64 1.60 -Tunneling No No No -Undermining/Tunneling No No No -Circular Undermining No No No -Wound/Ulcer Outcome Not Healed Not Healed Not Healed -Ulcer Cleansing Rinsed/ Rinsed/ Rinsed/ Irrigated with Irrigated with Irrigated with Saline Saline Saline -Foul Odor after Cleansing No No No -Bioengineered Tissue No No Yes -Type of Bioengineered Tissue Epifix -Expiration Date 05/18/29 -Product Lot Number [id number] -Percent Used 100 -Lot number of Saline Used [id number] -Bleeding Controlled with Pressure Silver Nitrate Pressure -Treatment Response Procedure Procedure Procedure Tolerated Well Tolerated Well Tolerated Well -Offloading Yes No Yes -Type of Offloading Surgical Shoe Surgical Shoe -Debridement - Subq, 1st 20sq cm Yes Yes No -Apply Skin Sub - 1st 25 sq cm - Feet 1 -Epifix (per sq cm) 4 #3 right lateral foot -Time 09:32 09:54 10:37 -Correct Patient Yes Yes Yes -Correct Side, Site, Position Yes Yes Yes -Correct Procedure Yes Yes Yes -Procedure Performed Yes Yes -Type of Procedure Debridement Debridement Debridement -Clinical Debridement Subcutaneous Subcutaneous Subcutaneous -Tissue Removed Subcutaneous Subcutaneous Subcutaneous -Post Debridement (cm) - Length 0.9 0.8 1.4 -Post Debridement (cm) - Width 1.1 0.9 1.5 -Post Debridement (cm) - Depth 0.1 0.2 0.3 -Total Square (Post) (cm) 0.99 0.72 2.10 -Area of Debridement (cm) - Length 0.9 0.8 1.4 -Area of Debridement (cm) - Width 1.1 0.9 1.5 -Total Square (Area) (cm) 0.99 0.72 2.10 -Tunneling No No -Undermining/Tunneling No No No -Circular Undermining No No No -Wound/Ulcer Outcome Not Healed Not Healed Not Healed -Ulcer Cleansing Rinsed/ Rinsed/ Rinsed/ Irrigated with Irrigated with Irrigated with Saline Saline Saline -Foul Odor after Cleansing No No No -Bioengineered Tissue Yes Yes No -Type of Bioengineered Tissue Epifix 18mm Epifix 18mm Disc Disc -Expiration Date 04/17/29 04/17/29 -Product Lot Number [id number] -Percent Used 100 100 -Lot number of Saline Used [id number] -Bleeding Controlled with Pressure Pressure Pressure -Treatment Response Procedure Procedure Procedure Tolerated Well Tolerated Well Tolerated Well -Offloading Yes Yes Yes -Type of Offloading Surgical Shoe Surgical Shoe Surgical Shoe -Debridement - Subq, 1st 20sq cm No No Yes -Apply Skin Sub - 1st 25 sq cm - Feet 1 1 -Epifix 18mm Disc 3 3 Pain Scale: 0-10 Numeric Is Patient Pain Free? Yes Yes Yes - Nurse 3 - General Ulcer D/C NN Start: 09/19/24 09:20 Freq: Status: Active Protocol: Activity Type Activity Date Activity User E-sign Co-sign Detail Recorded Client Recorded Date Recorded By Document 09/19/24 09:43 KW [id number] 09/19/24 09:46 KW Document 09/26/24 10:01 KW [id number] 09/26/24 10:02 KW Document 10/10/24 10:57 KW [id number] 10/10/24 10:57 KW 09/19/24 09/26/24 10/10/24 09:43 10:01 10:57 Wound Care Center Nurse 3 #4 right heel -Other Dressing to apply santyl , today is hydrogel -Primary Dressing Covered/Secured with Dry Gauze & Dry Gauze Dry Gauze Roll Gauze, Secured with Tape #3 right lateral foot -Primary Dressing Covered/Secured with Dry Gauze Dry Gauze & Dry Gauze & Roll Gauze, Roll Gauze, Secured with Secured with Tape Tape RLE -Compression Wrap Donte Wrap Donte Wrap Pain Scale: 0-10 Numeric Is Patient Pain Free? Yes Yes Yes - Visit Discharge Discharge Condition Stable Stable Stable Ambulatory Status Walker Wheelchair Walker Transportation Private Auto Medication Reconcilliation completed & No No No provided to patient/care provider Clinical Summary of Care Provided Yes Yes Yes Assessment/Plan Assessment/Plan (1) Non-pressure chronic ulcer of right heel and midfoot with fat layer exposed: CODE(S): L97.412 - Non-pressure chronic ulcer of right heel and midfoot with fat layer exposed PLAN: Patient was examined and evaluated. All findings were discussed with the patient. All questions were answered to the patient's satisfaction. Excisional debridement down to and including subcutaneous tissue of the right posterior heel with a number 5 mm dermal curette without incident. Predebridement measurement was 1.8 x 0.7 x 0.1 cm. Postdebridement measurement is 2.0 x 0.8 x 0.2 cm. EpiCord 2.0 x 3.0 cm graft was applied to the right heel full-thickness ulceration with 100% use. First application. The graft site was free and clear of any infection. The wound/skin graft substitute was dressed with nonadherent bandage secured in place with Steri-Strips followed by bolster dressing as well as a single Tubigrip compression bandage donned to the right lower extremity. Excisional debridement down to and including subcutaneous tissue to the right TMA full-thickness ulceration with a number 5 mm dermal curette without incident. Predebridement measurement was callus. postdebridement measurement is 1.4 x 1.5 x 0.3 cm. Dressing is remain clean dry and intact until follow-up. Patient continue to do physical therapy and self ambulation as tolerated. He is continue strict blood sugar control. Follow-up at the wound care center with Dr. Lyons in 1 week. (2) Non-pressure chronic ulcer of other part of right foot with fat layer exposed: CODE(S): L97.512 - Non-pressure chronic ulcer of other part of right foot with fat layer exposed
--- NOTE | 2024-10-10 15:09 | WC ---
PHOTO 10/10/24 RIGHT LATERAL FOOT
--- NOTE | 2024-10-10 15:11 | WC ---
PHOTO 10/10/24 RIGHT HEEL
== END 2024-10-15 23:59 | disposition home or self-care (01) ==
LOC: WC 10:00
PROVIDERS: PCP Family Medicine Geriatric Medicine; Referring Provider Podiatrist Foot & Ankle Surgery; Visit Provider Podiatrist Foot & Ankle Surgery
DX: E11.621 Type 2 diabetes mellitus with foot ulcer (principal); L97.412 Non-pressure chronic ulcer of right heel and midfoot with fat layer exposed; L97.512 Non-pressure chronic ulcer of other part of right foot with fat layer exposed; Z89.421 Acquired absence of other right toe(s)
CPT/HCPCS: 11042; 15275; Q4186

== ENCOUNTER → 2024-10-18 | Outpatient (CLI) | payer MEDICARE, MEDICAID, SELFPAY ==
[2024-10-18 12:59] LABS: Absolute Lymphocyte Count 1.09 X10^3/uL (0.83-4.51); Absolute Neutrophil Count 3.4 X10^3/uL (2.0-7.7); Basophil# 0.03 X10^3/uL; Basophil% 0.6 % (0-1); Eosinophil# 0.18 X10^3/uL; Eosinophils% 3.5 % (0-5); Hemoglobin 10.8 g/dL (13.0-16.5); Lymphocyte # 1.09 X10^3/ul (0.83-4.51); Lymphocyte % 21.4 % (19-41); Mean Corp Hgb Conc 32.7 g/dL (32-36); Mean Corpuscular Hgb 30.2 pg (27.0-32.0); Mean Corpuscular Volume 92.2 fL (80-94); Mean Platelet Vol. 10.8 fl (6.2-12.0); Monocyte# 0.43 X10^3/uL; Monocyte% 8.4 % (0-10); NRBC Flagged by Analyzer 0 % (0-5); Neutrophil # 3.35 X10^3/uL (2.7-7.7); Neutrophil % 65.7 % (47-70); Platelet Count 159 K/mm3 (150-450); RBC Distribution Width CV 13.8 % (11.6-14.6); RBC Distribution Width SD 46.5 fl (35.1-43.9); Red Blood Count 3.58 M/mm3 (4.6-6.2); White Blood Count 5.1 K/mm3 (4.4-11.0)
[2024-10-18 13:55] LABS: ALB/GLOB Ratio 1.3 RATIO (0.9-2.4); AST(SGOT) 26 U/L (<=37); Alanine Aminotransfer ALT/SGPT 17 U/L (<=46); Alkaline Phosphatase 144 U/L (40-129); Anion Gap 11 (5-15); BUN 24 mg/dL (4-19); BUN/Creat Ratio 20.3 RATIO (10-20); Calcium,Total 8.9 mg/dL (7.6-11.0); Chloride 106 mmol/L (98-108); Cholesterol 115 mg/dL (<=200); Creatinine, Serum 1.17 mg/dL (0.70-1.20); EST Glomerular Filtration Rate 67 (>60); Glucose 215 mg/dL (70-99); High Density Lipoprotein 33 mg/dL; Low Density Lipoprotein Calc. 51 mg/dL; Potassium 4.4 mmol/L (3.3-5.1); Sodium Level 139 mmol/L (133-145); Thyroid Stim Hormone (TSH) 0.623 uIU/mL (0.300-4.200); Total Bilirubin 0.55 mg/dL (0.00-1.30); Triglycerides 157 mg/dL; Very Low Density Lipoprotein 31 mg/dL (5-40); cholesterol:hdl ratio screen 3.48
[2024-10-18 16:23] LABS: Hemoglobin A1c 7.5 % (<=5.6)
[2024-10-18 20:17] LABS: Microalbumin,Random Urine 35.4 mg/L (NO RANGE EST.); Microalbumin:Creatinine Ratio 283.2 mg/g CRE
== END | disposition home or self-care (01) ==
LOC: LAB 15:35 → LABSPEC 15:36
PROVIDERS: PCP Family Medicine Geriatric Medicine; Referring Provider Family Medicine Geriatric Medicine; Visit Provider Family Medicine Geriatric Medicine
DX: E11.65 Type 2 diabetes mellitus with hyperglycemia (principal); E78.5 Hyperlipidemia, unspecified
CPT/HCPCS: 36415; 80053; 80061; 82043; 82570; 83036; 84443; 85025

== ENCOUNTER 2024-11-14 08:15 | Outpatient (RCR) | payer MEDICARE, MEDICAID, SELFPAY ==
[2024-10-16 00:26] VITALS: BP 135/57; PULSE 72; RESP 16; TEMP 36.1; BMI 26.4
[2024-10-24 11:05] VITALS: BP 129/52; PULSE 95; RESP 16; TEMP 36.2; BMI 26.4
--- NOTE | 2024-10-24 13:09 | PN.PCM_ITS ---
History of Present Illness Date of Service: 10/24/24 Chief Complaint: Ulcer right foot History of Wound: Patient presents to the wound care center today follow-up evaluation of full-thickness wounds to the right lower extremity. Patient was recently in the hospital for the past 2 weeks due to GI bleed was treated and discharge. He is following today for continued wound care to the right lower extremity. Progress of Wound: Full-thickness wound right heel, and transmetatarsal amputation site stable no sign of infection. Subjective Subjective Mr. Coronel is a 73-year-old diabetic male presented wound care center today for follow-up evaluation of full-thickness wound to the TMA and Achilles tendon area to the right lower extremity. Patient was recently discharged from the long-term facility to home and had some difficulty getting a ride to the wound care center last week. Patient is here today for evaluation of his full- thickness wound to right lower extremity. Patient states that he is doing well overall. His blood sugars well-controlled. He denies any trauma. Denies constitutional symptoms. No other pedal complaints at this time. Objective Data Objective Data Vital Signs: Vital Signs Temp Pulse Resp BP O2 Del Method 97.1 F L 95 16 129/52 H Room Air 10/24/24 11:05 10/24/24 11:05 10/24/24 11:05 10/24/24 11:05 10/24/24 11:05 Oxygen Delivery Method Room Air Weight: 86.183 kg Body Mass Index (BMI) 26.4 Physical Exam Narrative Vascular: DP and PT pulses are palpable to the right lower extremity. CFT is brisk to the flap to the right foot. Skin temperature great is warm to warm from proximal ankles to distal digits. Neurological: Light touch intact. Patient does not respond to painful stimuli. Dermatological: Right transmetatarsal amputation site full-thickness wound measures 1.2 x 1.3 x 0.2 cm. Full-thickness wound to the right heel measuring 2.0 x 1.0 x 0.2 cm. All wounds are granular nature with no sign of infection. Excisional debridement down to and including subcutaneous tissue of the right posterior heel with a number 5 mm dermal curette without incident. Predebridement measurement was 1.8 x 0.8 x 0.1 cm. Postdebridement measurement is 2.0 x 1.0 x 0.2 cm. EpiFix 2.0 x 2.0 cm graft was applied to the right heel full-thickness ulceration with 100% use. Second application. The graft site was free and c lear of any infection. The wound/skin graft substitute was dressed with nonadherent bandage secured in place with Steri-Strips followed by bolster dressing as well as a single Tubigrip compression bandage donned to the right lower extremity. Excisional debridement down to and including subcutaneous tissue to the right TMA full-thickness ulceration with a number 5 mm dermal curette without incide nt. Predebridement measurement was callus. postdebridement measurement is 1.2 x 1.3 x 0.2 cm. Musculoskeletal:. Muscle strength is 5 out of 5 in all quadrants to the right lower extremity. No pain to palpation to the full-thickness wounds to the right lower extremity. No pain with calf pressure. Debridement Note Debridement Note Debridement Free Text: Excisional debridement down to and including subcutaneous tissue of the right posterior heel with a number 5 mm dermal curette without incident. Predebridement measurement was 1.8 x 0.8 x 0.1 cm. Postdebridement measurement is 2.0 x 1.0 x 0.2 cm. EpiFix 2.0 x 2.0 cm graft was applied to the right heel full-thickness ulceration with 100% use. Second application. The graft site was free and clear of any infection. The wound/skin graft substitute was dressed with nonadherent bandage secured in place with Steri-Strips followed by bolster dressing as well as a single Tubigrip compression bandage donned to the right lower extremity. Excisional debridement down to and including subcutaneous tissue to the right TMA full-thickness ulceration with a number 5 mm dermal curette without incident. Predebridement measurement was callus. postdebridement measurement is 1.2 x 1.3 x 0.2 cm. Post-Debridement Measurements and Additional Note: Post-Debridement Measurements/Treatment - Nurse 1 - General Ulcer Assessment Start: 10/24/24 11:00 Freq: Status: Active Protocol: LOWEXT Activity Type Activity Date Activity User E-sign Co-sign Detail Recorded Client Recorded Date Recorded By Document 10/24/24 11:05 JOHNSON [id number] 10/24/24 11:12 KW 10/24/24 11:05 WC - Today's Visit Information Type of service Follow-up Visit (Physician/PETROGRAPHER ) Arrival Mode Wheelchair Patient Identification Verified (Name & Yes ) Height and Weight Body Mass Index (BMI) 26.4 BMI Classification Overweight Vital Signs Temperature (97.8 F-99.1 F) 97.1 F L Temperature Source Temporal Pulse Rate (60-100) 95 Pulse Location Monitor Respiratory Rate (12-18) 16 Respiratory rate source Monitor Oxygen Delivery Method Room Air Blood Pressure (90/60-120/80) 129/52 H Blood Pressure Mean (mm Hg) 77 Source Monitor Position Semi-Fowlers Blood Pressure Location Left Arm History Since Last Visit- (Skip if this is Patient's initial visit) Have you changed medications since your No last visit? Any new allergies or adverse reactions No Had a fall/change in ADL's that may No increase risk of falls Signs or symptoms of abuse and/or No neglect since last visit Have you been in the hospital since your No last visit? Has dressing in place as prescribed Yes Has compression in place as prescribed Yes Has offloadiing in place as prescribed Yes Experienced any changes in pain level or No management Left Footwear Surgical Shoe with pressure relief insole Right Footwear Regular Shoe Pain Scale: 0-10 Numeric Is Patient Pain Free? Yes - Nurse 1 - General Ulcer Measurement Start: 10/24/24 11:00 Freq: Status: Active Protocol: Activity Type Activity Date Activity User E-sign Co-sign Detail Recorded Client Recorded Date Recorded By Document 10/24/24 11:05 JOHNSON [id number] 10/24/24 11:12 JOHNSON 10/24/24 11:05 Wound Center Nurse 1 #4 right heel -Current Size (cm) - Length 1.5 -Current Size (cm) - Width 0.5 -Current Size (cm) - Depth 0.1 -Total Square Cm 0.75 -Date of Last Picture (Recall this 10/24/24 field) -Epithelialization Medium 34-66% -Granulation Amt Small (1-33%) -Granulation Quality [place] -Necrosis Amt Large (67-100%) -Necrotic Tissue Type Adherent Slough -Texture (Donna-wound Skin Appearance) Assessed -Moisture (Donna-wound Skin Appearance) Assessed -Color (Donna-wound Skin Appearance) Assessed -Temperature (Donna-wound Skin No Abnormality Appearance) (Pt Warm) -Tenderness on Palpation (Donna-wound No Skin Appearance) -Ulcer Cleansing Soap and Water -Foul Odor after Cleansing No -Anesthetic Used 5% Lidocaine Gel #3 right lateral foot -Current Size (cm) - Length 0.1 -Current Size (cm) - Width 0.1 -Current Size (cm) - Depth 0.1 -Total Square Cm 0.01 -Date of Last Picture (Recall this 10/24/24 field) -Exudate Amt None Present -Granulation Amt None Present (0 %) -Necrosis Amt Large (67-100%) -Necrotic Tissue Type Adherent Slough -Texture (Donna-wound Skin Appearance) Assessed -Moisture (Donna-wound Skin Appearance) Assessed -Color (Donna-wound Skin Appearance) Assessed -Temperature (Donna-wound Skin No Abnormality Appearance) (Pt Warm) -Tenderness on Palpation (Donna-wound No Skin Appearance) -Ulcer Cleansing Soap and Water -Foul Odor after Cleansing No -Anesthetic Used 5% Lidocaine Gel WC - Nurse 2 - General Ulcer CM Notes Start: 10/24/24 11:00 Freq: Status: Active Protocol: Activity Type Activity Date Activity User E-sign Co-sign Detail Recorded Client Recorded Date Recorded By Document 10/24/24 11:26 NESS [id number] 10/24/24 11:36 NESS 10/24/24 11:26 Wound Center Nurse 2 #4 right heel -Time 11:30 -Correct Patient Yes -Correct Side, Site, Position Yes -Correct Procedure Yes -Procedure Performed Yes -Type of Procedure Debridement -Clinical Debridement Subcutaneous -Tissue Removed Subcutaneous -Post Debridement (cm) - Length 2.0 -Post Debridement (cm) - Width 1.0 -Post Debridement (cm) - Depth 0.2 -Total Square (Post) (cm) 2.00 -Area of Debridement (cm) - Length 2.0 -Area of Debridement (cm) - Width 1.0 -Total Square (Area) (cm) 2.00 -Tunneling No -Undermining/Tunneling No -Circular Undermining No -Wound/Ulcer Outcome Not Healed -Ulcer Cleansing Rinsed/ Irrigated with Saline -Foul Odor after Cleansing No -Bioengineered Tissue Yes -Type of Bioengineered Tissue Epifix -Expiration Date 04/17/29 -Product Lot Number [id number] -Percent Used 100 -Lot number of Saline Used [id number] -Bleeding Controlled with Pressure -Treatment Response Procedure Tolerated Well -Offloading Yes -Type of Offloading Surgical Shoe -Debridement - Subq, 1st 20sq cm No -Apply Skin Sub - 1st 25 sq cm - Feet 1 -Epifix (per sq cm) 4 #3 right lateral foot -Time 11:26 -Correct Patient Yes -Correct Side, Site, Position Yes -Correct Procedure Yes -Procedure Performed Yes -Type of Procedure Debridement -Clinical Debridement Subcutaneous -Tissue Removed Subcutaneous -Post Debridement (cm) - Length 1.2 -Post Debridement (cm) - Width 1.3 -Post Debridement (cm) - Depth 0.2 -Total Square (Post) (cm) 1.56 -Area of Debridement (cm) - Length 1.2 -Area of Debridement (cm) - Width 1.3 -Total Square (Area) (cm) 1.56 -Tunneling No -Undermining/Tunneling No -Circular Undermining No -Wound/Ulcer Outcome Not Healed -Ulcer Cleansing Rinsed/ Irrigated with Saline -Foul Odor after Cleansing No -Bioengineered Tissue No -Bleeding Controlled with Pressure -Treatment Response Procedure Tolerated Well -Offloading Yes -Type of Offloading Surgical Shoe -Debridement - Subq, 1st 20sq cm Yes Pain Scale: 0-10 Numeric Is Patient Pain Free? Yes - Nurse 3 - General Ulcer D/C NN Start: 10/24/24 11:00 Freq: Status: Active Protocol: Activity Type Activity Date Activity User E-sign Co-sign Detail Recorded Client Recorded Date Recorded By Document 10/24/24 11:50 SD [id number] 10/24/24 11:51 SD 10/24/24 11:50 Wound Care Center Nurse 3 #4 right heel -Foul Odor after Cleansing No -Negative Pressure Wound Therapy N/A -Primary Dressing Covered/Secured with Dry Gauze & Roll Gauze, Secured with Tape #3 right lateral foot -Foul Odor after Cleansing No -Negative Pressure Wound Therapy N/A -Other Dressing abd -Primary Dressing Covered/Secured with Dry Gauze & Roll Gauze, Secured with Tape Pain Scale: 0-10 Numeric Is Patient Pain Free? Yes Assessment/Plan Assessment/Plan (1) Non-pressure chronic ulcer of right heel and midfoot with fat layer exposed: CODE(S): L97.412 - Non-pressure chronic ulcer of right heel and midfoot with fat layer exposed PLAN: Patient was examined and evaluated. All findings were discussed with the patient. All questions were answered to the patient's satisfaction. Excisional debridement down to and including subcutaneous tissue of the right posterior heel with a number 5 mm dermal curette without incident. Predebridement measurement was 1.8 x 0.8 x 0.1 cm. Postdebridement measurement is 2.0 x 1.0 x 0.2 cm. EpiFix 2.0 x 2.0 cm graft was applied to the right heel full-thickness ulcera tion with 100% use. Second application. The graft site was free and clear of any infection. The wound/skin graft substitute was dressed with nonadherent bandage secured in place with Steri-Strips followed by bolster dressing as well as a single Tubigrip compression bandage donned to the right lower extremity. Excisional debridement down to and including subcutaneous tissue to the right TMA full-thickness ulceration with a number 5 mm dermal curette without incident. Predebridement measurement was callus. postdebridement measurement is 1.2 x 1.3 x 0.2 cm. Patient is dressing remain clean dry and intact until follow-up. He will continue to do home physical therapy if that was ordered during his discharge. Educated the patient called wound care center to let us know who is coming for dressing changes and what home health care agency he is using. Educated patient continue strict blood sugar control. Follow-up at the wound care center with Dr. Lyons in 1 week. (2) Non-pressure chronic ulcer of other part of right foot with fat layer exposed: CODE(S): L97.512 - Non-pressure chronic ulcer of other part of right foot with fat layer exposed
--- NOTE | 2024-10-25 10:50 | WC ---
PHOTO 10/24/24 RIGHT LATERAL FOOT
--- NOTE | 2024-10-25 10:53 | WC ---
PHOTO 10/24/24 RIGHT HEEL
[2024-10-31 08:48] VITALS: BP 120/43; PULSE 94; RESP 18; TEMP 36.1; BMI 26.4
--- NOTE | 2024-10-31 09:59 | PN.PCM_ITS ---
History of Present Illness Date of Service: 10/31/24 Chief Complaint: Ulcer right foot History of Wound: Patient presents to the wound care center today follow-up evaluation of full-thickness wounds to the right lower extremity. Patient was recently in the hospital for the past 2 weeks due to GI bleed was treated and discharge. He is following today for continued wound care to the right lower extremity. Progress of Wound: Full-thickness wound right heel, and transmetatarsal amputation site stable no sign of infection. Subjective Subjective Mr. Coronel is a 73-year-old diabetic male presented with his send a follow-up evaluation of full-thickness wound to the right heel and transmetatarsal amputation sites. He has left the dressing clean dry and intact and admits that his blood sugars well-controlled. He denies any strikethrough drainage to the dressing. Denies trauma. Denies constitutional symptoms. No other pedal complaints at this time. Objective Data Objective Data Vital Signs: Vital Signs Temp Pulse Resp BP O2 Del Method 97 F L 94 18 120/43 L Room Air 10/31/24 08:48 10/31/24 08:48 10/31/24 08:48 10/31/24 08:48 10/24/24 11:05 Oxygen Delivery Method Room Air Weight: 86.183 kg Body Mass Index (BMI) 26.4 Physical Exam Narrative Vascular: DP and PT pulses are palpable to the right lower extremity. CFT is brisk to the flap to the right foot. Skin temperature great is warm to warm from proximal ankles to distal digits. Neurological: Light touch intact. Patient does not respond to painful stimuli. Dermatological: Right transmetatarsal amputation site full-thickness wound measures 1.3 x 1.3 x 0.1 cm. Full-thickness wound to the right heel measuring 2.3 x 1.3 x 0.1 cm. All wounds are granular nature with no sign of infection. Excisional debridement down to and including subcutaneous tissue of the right posterior heel with a number 5 mm dermal curette without incident. Predebridement measurement was not smaller so was at 1.0 x 0.5 x 0.1 cm. Postdebridement measurement is 2.3 x 1.3 x 0.1 cm. EpiFix 2.0 x 2.0 cm graft was applied to the right heel full-thickness ulceration with 100% use. Third application. The graft site was free and clear of any infection. The wound/skin graft substitute was dressed with nonadherent bandage secured in place with Steri-Strips followed by bolster dressing as well as a single Tubigrip compression bandage donned to the right lower extremity. Excisional debridement down to and including subcutaneous tissue to the right TMA full-thickness ulceration with a number 5 mm dermal curette without incident. Predebridement measurement was callus. postdebridement measurement is 1.3 x 1.3 x 0.1 cm. Musculoskeletal:. Muscle strength is 5 out of 5 in all quadrants to the right lower extremity. No pain to palpation to the full-thickness wounds to the right lower extremity. No pain with calf pressure. Debridement Note Debridement Note Debridement Free Text: Excisional debridement down to and including subcutaneous tissue of the right posterior heel with a number 5 mm dermal curette without i ncident. Predebridement measurement was not smaller so was at 1.0 x 0.5 x 0.1 cm. Postdebridement measurement is 2.3 x 1.3 x 0.1 cm. EpiFix 2.0 x 2.0 cm graft was applied to the right heel full-thickness ulceration with 100% use. Third application. The graft site was free and clear of any infection. The wound/skin graft substitute was dressed with nonadherent bandage secured in place with Steri-Strips followed by bolster dressing as well as a single Tubigrip compression bandage donned to the right lower extremity. Excisional debridement down to and including subcutaneous tissue to the right TMA full-thickness ulceration with a number 5 mm dermal curette without incident. Predebridement measurement was callus. postdebridement measurement is 1.3 x 1.3 x 0.1 cm. Post-Debridement Measurements and Additional Note: Post-Debridement Measurements/Treatment - Nurse 1 - General Ulcer Assessment Start: 10/24/24 11:00 Freq: Status: Active Protocol: FLAVIOEXEllen Activity Type Activity Date Activity User E-sign Co-sign Detail Recorded Client Recorded Date Recorded By Document 10/24/24 11:05 KW [id number] 10/24/24 11:12 KW Document 10/31/24 08:48 RB [id number] 10/31/24 08:57 RB 10/24/24 10/31/24 11:05 08:48 - Today's Visit Information Type of service Follow-up Visit Follow-up Visit (Physician/ON AIR ANNOUNCER (Physician/ON AIR ANNOUNCER ) ) Arrival Mode Wheelchair Ambulatory, Walker Transfer Assistance None Patient Identification Verified (Name & Yes Yes ) Patient Requires Transmission-Based No Precautions Height and Weight Body Mass Index (BMI) 26.4 26.4 BMI Classification Overweight Overweight Vital Signs Temperature (97.8 F-99.1 F) 97.1 F L 97 F L Temperature Source Temporal Temporal Pulse Rate (60-100) 95 94 Pulse Location Monitor Monitor Respiratory Rate (12-18) 16 18 Respiratory rate source Monitor Observation Oxygen Delivery Method Room Air Blood Pressure (90/60-120/80) 129/52 H 120/43 L Blood Pressure Mean (mm Hg) 77 68 Source Monitor Monitor Position Semi-Fowlers Semi-Fowlers Blood Pressure Location Left Arm Left Arm History Since Last Visit- (Skip if this is Patient's initial visit) Have you changed medications since your No No last visit? Any new allergies or adverse reactions No No Had a fall/change in ADL's that may No No increase risk of falls Signs or symptoms of abuse and/or No No neglect since last visit Have you been in the hospital since your No No last visit? Has dressing in place as prescribed Yes Yes Has compression in place as prescribed Yes Yes Has offloadiing in place as prescribed Yes Yes Experienced any changes in pain level or No No management Left Footwear Surgical Shoe Regular Shoe with pressure relief insole Right Footwear Regular Shoe Surgical Shoe with pressure relief insole Pain Scale: 0-10 Numeric Is Patient Pain Free? Yes Yes - Nurse 1 - General Ulcer Measurement Start: 10/24/24 11:00 Freq: Status: Active Protocol: Activity Type Activity Date Activity User E-sign Co-sign Detail Recorded Client Recorded Date Recorded By Document 10/24/24 11:05 KW [id number] 10/24/24 11:12 KW Document 10/31/24 08:48 RB [id number] 10/31/24 08:57 RB 10/24/24 10/31/24 11:05 08:48 Wound Center Nurse 1 #4 right heel -Combined with other wound No -Current Size (cm) - Length 1.5 0.1 -Current Size (cm) - Width 0.5 0.1 -Current Size (cm) - Depth 0.1 0.1 -Total Square Cm 0.75 0.01 -Date of Last Picture (Recall this 10/24/24 field) -Photo Taken Yes -Epithelialization Medium 34-66% -Tunneling No -Undermining/Tunneling No -Circular Undermining No -Exudate Amt Medium -Exudate Type Serosanguineous -Wound Margin Distinct, Outline Attached -Granulation Amt Small (1-33%) Medium (34-66%) -Granulation Quality [place] -Slough/Fibrin Yes -Necrosis Amt Large (67-100%) Small (1-33%) -Necrotic Tissue Type Adherent Slough Adherent Slough -Structure Exposed N/A -Texture (Donna-wound Skin Appearance) Assessed Assessed -Moisture (Donna-wound Skin Appearance) Assessed Assessed,Dry/ Scaly -Color (Donna-wound Skin Appearance) Assessed Assessed -Temperature (Donna-wound Skin No Abnormality No Abnormality Appearance) (Pt Warm) (Pt Warm) -Tenderness on Palpation (Donna-wound No No Skin Appearance) -Ulcer Cleansing Soap and Water Wound Cleanser -Foul Odor after Cleansing No No -Anesthetic Used 5% Lidocaine 5% Lidocaine Gel Gel #3 right lateral foot -Combined with other wound No -Current Size (cm) - Length 0.1 0.5 -Current Size (cm) - Width 0.1 1 -Current Size (cm) - Depth 0.1 0.2 -Total Square Cm 0.01 0.5 -Date of Last Picture (Recall this 10/24/24 field) -Photo Taken Yes -Tunneling No -Undermining/Tunneling No -Circular Undermining No -Exudate Amt None Present Medium -Exudate Type Serosanguineous -Wound Margin Distinct, Outline Attached -Granulation Amt None Present (0 Medium (34-66%) %) -Granulation Quality [place] -Slough/Fibrin Yes -Necrosis Amt Large (67-100%) Medium (34-66%) -Necrotic Tissue Type Adherent Slough Adherent Slough -Structure Exposed N/A -Texture (Donna-wound Skin Appearance) Assessed Assessed -Moisture (Donna-wound Skin Appearance) Assessed Dry/Scaly -Color (Donna-wound Skin Appearance) Assessed Assessed -Temperature (Donna-wound Skin No Abnormality No Abnormality Appearance) (Pt Warm) (Pt Warm) -Tenderness on Palpation (Donna-wound No No Skin Appearance) -Ulcer Cleansing Soap and Water Wound Cleanser -Foul Odor after Cleansing No No -Anesthetic Used 5% Lidocaine 5% Lidocaine Gel Gel WC - Nurse 2 - General Ulcer CM Notes Start: 10/24/24 11:00 Freq: Status: Active Protocol: Activity Type Activity Date Activity User E-sign Co-sign Detail Recorded Client Recorded Date Recorded By Document 10/24/24 11:26 [id number] 10/24/24 11:36 Document 10/31/24 09:14 [id number] 10/31/24 09:19 10/24/24 10/31/24 11:26 09:14 Wound Center Nurse 2 #4 right heel -Time 11:30 09:15 -Correct Patient Yes Yes -Correct Side, Site, Position Yes Yes -Correct Procedure Yes Yes -Procedure Performed Yes Yes -Type of Procedure Debridement Debridement -Clinical Debridement Subcutaneous Subcutaneous -Tissue Removed Subcutaneous Subcutaneous -Post Debridement (cm) - Length 2.0 2.3 -Post Debridement (cm) - Width 1.0 1.3 -Post Debridement (cm) - Depth 0.2 0.1 -Total Square (Post) (cm) 2.00 2.99 -Area of Debridement (cm) - Length 2.0 2.3 -Area of Debridement (cm) - Width 1.0 1.3 -Total Square (Area) (cm) 2.00 2.99 -Tunneling No No -Undermining/Tunneling No No -Circular Undermining No No -Wound/Ulcer Outcome Not Healed Not Healed -Ulcer Cleansing Rinsed/ Rinsed/ Irrigated with Irrigated with Saline Saline -Foul Odor after Cleansing No No -Bioengineered Tissue Yes Yes -Type of Bioengineered Tissue Epifix Epifix -Expiration Date 04/17/29 05/18/29 -Product Lot Number [id number] -Percent Used 100 100 -Lot number of Saline Used [id number] -Bleeding Controlled with Pressure Pressure -Treatment Response Procedure Procedure Tolerated Well Tolerated Well -Offloading Yes Yes -Type of Offloading Surgical Shoe Surgical Shoe -Debridement - Subq, 1st 20sq cm No No -Apply Skin Sub - 1st 25 sq cm - Feet 1 1 -Epifix Application 1-4 (per sq cm) 4 4 #3 right lateral foot -Time 11:26 09:16 -Correct Patient Yes Yes -Correct Side, Site, Position Yes Yes -Correct Procedure Yes Yes -Procedure Performed Yes Yes -Type of Procedure Debridement Debridement -Clinical Debridement Subcutaneous Subcutaneous -Tissue Removed Subcutaneous Subcutaneous -Post Debridement (cm) - Length 1.2 1.3 -Post Debridement (cm) - Width 1.3 1.3 -Post Debridement (cm) - Depth 0.2 0.1 -Total Square (Post) (cm) 1.56 1.69 -Area of Debridement (cm) - Length 1.2 1.3 -Area of Debridement (cm) - Width 1.3 1.3 -Total Square (Area) (cm) 1.56 1.69 -Tunneling No No -Undermining/Tunneling No No -Circular Undermining No No -Wound/Ulcer Outcome Not Healed Not Healed -Ulcer Cleansing Rinsed/ Rinsed/ Irrigated with Irrigated with Saline Saline -Foul Odor after Cleansing No No -Bioengineered Tissue No No -Bleeding Controlled with Pressure Pressure -Treatment Response Procedure Procedure Tolerated Well Tolerated Well -Offloading Yes No -Type of Offloading Surgical Shoe -Debridement - Subq, 1st 20sq cm Yes Yes Pain Scale: 0-10 Numeric Is Patient Pain Free? Yes Yes - Nurse 3 - General Ulcer D/C NN Start: 10/24/24 11:00 Freq: Status: Active Protocol: Activity Type Activity Date Activity User E-sign Co-sign Detail Recorded Client Recorded Date Recorded By Document 10/24/24 11:50 MT [id number] 10/24/24 11:51 MT Document 10/31/24 09:41 RB [id number] 10/31/24 09:42 RB 10/24/24 10/31/24 11:50 09:41 Wound Care Center Nurse 3 #4 right heel -Foul Odor after Cleansing No -Negative Pressure Wound Therapy N/A -Other Dressing hydrogel/ ABD -Primary Dressing Covered/Secured with Dry Gauze & Dry Gauze & Roll Gauze, Roll Gauze, Secured with Secured with Tape Tape #3 right lateral foot -Foul Odor after Cleansing No -Negative Pressure Wound Therapy N/A -Other Dressing abd hydrogel/ ABD -Primary Dressing Covered/Secured with Dry Gauze & Dry Gauze & Roll Gauze, Roll Gauze, Secured with Secured with Tape Tape RLE -Other jesu Treatment Response Procedure Tolerated Well Pain Scale: 0-10 Numeric Is Patient Pain Free? Yes Yes WC - Visit Discharge Discharge Condition Stable Ambulatory Status Ambulatory, Walker Transportation Private Auto Medication Reconcilliation completed & No provided to patient/care provider Clinical Summary of Care Provided Yes Assessment/Plan Assessment/Plan (1) Non-pressure chronic ulcer of right heel and midfoot with fat layer exposed: CODE(S): L97.412 - Non-pressure chronic ulcer of right heel and midfoot with fat layer exposed PLAN: Patient was examined and evaluated. All findings were discussed with the patient. All questions were answered to the patient's satisfaction. Excisional debridement down to and including subcutaneous tissue of the right posterior heel with a number 5 mm dermal curette without incident. Predebridement measurement was not smaller so was at 1.0 x 0.5 x 0.1 cm. Postdebridement measurement is 2.3 x 1.3 x 0.1 cm. EpiFix 2.0 x 2.0 cm graft was applied to the right heel full-thickness ulceration with 100% use. Third application. The graft site was free and clear of any infection. The wound/skin graft substitute was dressed with nonadherent bandage secured in place with Steri-Strips followed by bolster dressing as well as a single Tubigrip compression bandage donned to the right lower extremity. Excisional debridement down to and including subcutaneous tissue to the right TMA full-thickness ulceration with a number 5 mm dermal curette without incident. Predebridement measurement was callus. postdebridement measurement is 1.3 x 1.3 x 0.1 cm. Educated patient to leave the dressing clean dry and intact until follow-up. He will continue to offload the left heel and foot. We are still waiting on the patient's home health care for dressing change orders. Educated patient continue strict blood sugar control which she is understanding of. Follow-up at the wound care center with Dr. Lyons in 1 week. (2) Non-pressure chronic ulcer of other part of right foot with fat layer expo sed: CODE(S): L97.512 - Non-pressure chronic ulcer of other part of right foot with fat layer exposed
--- NOTE | 2024-11-01 08:07 | WC ---
PHOTO 10/31/24 RIGHT LATERAL FOOT
[2024-11-07 08:51] VITALS: BP 133/61; PULSE 94; RESP 16; TEMP 36.4; BMI 26.4
--- NOTE | 2024-11-07 11:01 | PN.PCM_ITS ---
History of Present Illness Date of Service: 11/07/24 Chief Complaint: Ulcer right foot History of Wound: Patient presents to the wound care center today follow-up evaluation of full-thickness wounds to the right lower extremity. Patient was recently in the hospital for the past 2 weeks due to GI bleed was treated and discharge. He is following today for continued wound care to the right lower extremity. Progress of Wound: Full-thickness wound right heel, and transmetatarsal amputation site stable no sign of infection. Subjective Subjective Mr. Coronel is a 73-year-old diabetic male presented with his send a follow-up evaluation of full-thickness wound to the right heel and transmetatarsal amputation sites. Patient is admit to smoking a few cigarettes a day but has really cut back. He has left his dressing clean dry and intact. He denies trauma. Denies constitutional symptoms. No pedal complaints at this time. Objective Data Objective Data Vital Signs: Vital Signs Temp Pulse Resp BP O2 Del Method 97.5 F L 94 16 133/61 H Room Air 11/07/24 08:51 11/07/24 08:51 11/07/24 08:51 11/07/24 08:51 11/07/24 08:51 Oxygen Delivery Method Room Air Weight: 86.183 kg Body Mass Index (BMI) 26.4 Physical Exam Narrative Vascular: DP and PT pulses are palpable to the right lower extremity. CFT is brisk to the flap to the right foot. Skin temperature great is warm to warm from proximal ankles to distal digits. Neurological: Light touch intact. Patient does not respond to painful stimuli. Dermatological: Right transmetatarsal amputation site full-thickness wound measures 0.5 x 0.5 x 0.3 cm. Positive probe to bone. No sign of infection. Full-thickness wound to the right heel measuring 2.0 x 0.7 x 0.2 cm. Excisional debridement down to and including subcutaneous tissue of the right posterior heel with a number 5 mm dermal curette without incident. Predebridement measurement was not smaller so was at 1.8 x 0.5 x 0.1 cm. Postdebridement measurement is 2.0 x 0.7 x 0.2 cm. EpiFix 18 mm disc graft was applied to the right heel full-thickness ulceration with 100% use. Fourth application. The graft site was free and clear of any infection. The wound/skin graft substitute was dressed with nonadherent bandage secured in place with Steri-Strips followed by bolster dressing as well as a single Tubigrip compression bandage donned to the right lower extremity. Excisional debridement down to and including subcutaneous tissue, fascia muscle and bone to the right TMA full-thickness ulceration with a number 5 mm dermal curette without incident. Predebridement measurement was callus. postdebridement measurement is 0.5 x 0.5 x 0.3 cm. Musculoskeletal:. Muscle strength is 5 out of 5 in all quadrants to the right lower extremity. No pain to palpation to the full-thickness wounds to the right lower extremity. No pain with calf pressure. Debridement Note Debridement Note Debridement Free Text: Excisional debridement down to and including subcutaneous tissue of the right posterior heel with a number 5 mm dermal curette without incident. Predebridement measurement was not smaller so was at 1.8 x 0.5 x 0.1 cm. Postdebridement measurement is 2.0 x 0.7 x 0.2 cm. EpiFix 18 mm disc graft was applied to the right heel full-thickness ulceration with 100% use. Fourth application. The graft site was free and clear of any infection. The wound/skin graft substitute was dressed with nonadherent bandage secured in place with Steri-Strips followed by bolster dressing as well as a single Tubigrip compression bandage donned to the right lower extremity. Excisional debridement down to and including subcutaneous tissue, fascia muscle and bone to the right TMA full-thickness ulceration with a number 5 mm dermal curette without incident. Predebridement measurement was callus. postdebridement measurement is 0.5 x 0.5 x 0.3 cm. Post-Debridement Measurements and Additional Note: Post-Debridement Measurements/Treatment WC - Nurse 1 - General Ulcer Assessment Start: 10/24/24 11:00 Freq: Status: Active Protocol: YOCASTA Activity Type Activity Date Activity User E-sign Co-sign Detail Recorded Client Recorded Date Recorded By Document 10/24/24 11:05 KW [id number] 10/24/24 11:12 KW Document 10/31/24 08:48 RB [id number] 10/31/24 08:57 RB Document 11/07/24 08:51 GM [id number] 11/07/24 08:55 GM 10/24/24 10/31/24 11/07/24 11:05 08:48 08:51 WC - Today's Visit Information Type of service Follow-up Visit Follow-up Visit Follow-up Visit (Physician/SOFTBALL COACH (Physician/SOFTBALL COACH (Physician/SOFTBALL COACH ) ) ) Arrival Mode Wheelchair Ambulatory, Ambulatory, Walker Walker Transfer Assistance None None Patient Identification Verified (Name & Yes Yes Yes ) Patient Requires Transmission-Based No Precautions Height and Weight Body Mass Index (BMI) 26.4 26.4 26.4 BMI Classification Overweight Overweight Overweight Vital Signs Temperature (97.8 F-99.1 F) 97.1 F L 97 F L 97.5 F L Temperature Source Temporal Temporal Temporal Pulse Rate (60-100) 95 94 94 Pulse Location Monitor Monitor Monitor Respiratory Rate (12-18) 16 18 16 Respiratory rate source Monitor Observation Observation Oxygen Delivery Method Room Air Room Air Blood Pressure (90/60-120/80) 129/52 H 120/43 L 133/61 H Blood Pressure Mean (mm Hg) 77 68 85 Source Monitor Monitor Monitor Position Semi-Fowlers Semi-Fowlers Sitting Blood Pressure Location Left Arm Left Arm Left Arm History Since Last Visit- (Skip if this is Patient's initial visit) Have you changed medications since your No No No last visit? Any new allergies or adverse reactions No No No Had a fall/change in ADL's that may No No No increase risk of falls Signs or symptoms of abuse and/or No No No neglect since last visit Have you been in the hospital since your No No No last visit? Has dressing in place as prescribed Yes Yes Yes Has compression in place as prescribed Yes Yes Yes Has offloadiing in place as prescribed Yes Yes Yes Experienced any changes in pain level or No No No management Left Footwear Surgical Shoe Regular Shoe Slipper with pressure relief insole Right Footwear Regular Shoe Surgical Shoe Surgical Shoe with pressure with pressure relief insole relief insole Pain Scale: 0-10 Numeric Is Patient Pain Free? Yes Yes Yes - Nurse 1 - General Ulcer Measurement Start: 10/24/24 11:00 Freq: Status: Active Protocol: Activity Type Activity Date Activity User E-sign Co-sign Detail Recorded Client Recorded Date Recorded By Document 10/24/24 11:05 [id number] 10/24/24 11:12 KW Document 10/31/24 08:48 RB [id number] 10/31/24 08:57 RB Document 11/07/24 08:51 GM [id number] 11/07/24 08:55 GM 10/24/24 10/31/24 11/07/24 11:05 08:48 08:51 Wound Center Nurse 1 #4 right heel -Combined with other wound No -Current Size (cm) - Length 1.5 0.1 2.3 -Current Size (cm) - Width 0.5 0.1 1.0 -Current Size (cm) - Depth 0.1 0.1 0.1 -Total Square Cm 0.75 0.01 2.30 -Date of Last Picture (Recall this 10/24/24 field) -Photo Taken Yes No -Epithelialization Medium 34-66% Small 1-33% -Tunneling No No -Undermining/Tunneling No No -Circular Undermining No No -Exudate Amt Medium Small -Exudate Type Serosanguineous Yellow/Green -Wound Margin Distinct, Distinct, Outline Outline Attached Attached -Granulation Amt Small (1-33%) Medium (34-66%) Medium (34-66%) -Granulation Quality [place] -Slough/Fibrin Yes Yes -Necrosis Amt Large (67-100%) Small (1-33%) -Necrotic Tissue Type Adherent Slough Adherent Slough Adherent Slough -Structure Exposed N/A -Texture (Donna-wound Skin Appearance) Assessed Assessed Assessed -Moisture (Donna-wound Skin Appearance) Assessed Assessed,Dry/ Assessed Scaly -Color (Donna-wound Skin Appearance) Assessed Assessed Assessed -Temperature (Donna-wound Skin No Abnormality No Abnormality No Abnormality Appearance) (Pt Warm) (Pt Warm) (Pt Warm) -Tenderness on Palpation (Donna-wound No No No Skin Appearance) -Ulcer Cleansing Soap and Water Wound Cleanser Soap and Water -Foul Odor after Cleansing No No No -Anesthetic Used 5% Lidocaine 5% Lidocaine 5% Lidocaine Gel Gel Gel #3 right lateral foot -Combined with other wound No -Current Size (cm) - Length 0.1 0.5 1.0 -Current Size (cm) - Width 0.1 1 1.0 -Current Size (cm) - Depth 0.1 0.2 0.1 -Total Square Cm 0.01 0.5 1.00 -Date of Last Picture (Recall this 10/24/24 field) -Photo Taken Yes No -Epithelialization Small 1-33% -Tunneling No No -Undermining/Tunneling No No -Circular Undermining No No -Exudate Amt None Present Medium Small -Exudate Type Serosanguineous Yellow/Green -Wound Margin Distinct, Distinct, Outline Outline Attached Attached -Granulation Amt None Present (0 Medium (34-66%) Small (1-33%) %) -Granulation Quality [place] -Slough/Fibrin Yes Yes -Necrosis Amt Large (67-100%) Medium (34-66%) -Necrotic Tissue Type Adherent Slough Adherent Slough Adherent Slough -Structure Exposed N/A -Texture (Donna-wound Skin Appearance) Assessed Assessed Assessed -Moisture (Donna-wound Skin Appearance) Assessed Dry/Scaly Assessed -Color (Donna-wound Skin Appearance) Assessed Assessed Assessed -Temperature (Donna-wound Skin No Abnormality No Abnormality No Abnormality Appearance) (Pt Warm) (Pt Warm) (Pt Warm) -Tenderness on Palpation (Donna-wound No No No Skin Appearance) -Ulcer Cleansing Soap and Water Wound Cleanser Soap and Water -Foul Odor after Cleansing No No No -Anesthetic Used 5% Lidocaine 5% Lidocaine 5% Lidocaine Gel Gel Gel WC - Nurse 2 - General Ulcer CM Notes Start: 10/24/24 11:00 Freq: Status: Active Protocol: Activity Type Activity Date Activity User E-sign Co-sign Detail Recorded Client Recorded Date Recorded By Document 10/24/24 11:26 [id number] 10/24/24 11:36 Document 10/31/24 09:14 [id number] 10/31/24 09:19 Document 11/07/24 08:58 DS [id number] 11/07/24 09:10 DS 10/24/24 10/31/24 11/07/24 11:26 09:14 08:58 Wound Center Nurse 2 #4 right heel -Time 11:30 09:15 08:58 -Correct Patient Yes Yes Yes -Correct Side, Site, Position Yes Yes Yes -Correct Procedure Yes Yes Yes -Procedure Performed Yes Yes Yes -Type of Procedure Debridement Debridement Debridement -Clinical Debridement Subcutaneous Subcutaneous Subcutaneous -Tissue Removed Subcutaneous Subcutaneous Subcutaneous, Muscle -Post Debridement (cm) - Length 2.0 2.3 2.0 -Post Debridement (cm) - Width 1.0 1.3 0.7 -Post Debridement (cm) - Depth 0.2 0.1 0.2 -Total Square (Post) (cm) 2.00 2.99 1.40 -Area of Debridement (cm) - Length 2.0 2.3 2.0 -Area of Debridement (cm) - Width 1.0 1.3 0.7 -Total Square (Area) (cm) 2.00 2.99 1.40 -Tunneling No No No -Undermining/Tunneling No No No -Circular Undermining No No No -Wound/Ulcer Outcome Not Healed Not Healed Not Healed -Ulcer Cleansing Rinsed/ Rinsed/ Rinsed/ Irrigated with Irrigated with Irrigated with Saline Saline Saline -Foul Odor after Cleansing No No No -Bioengineered Tissue Yes Yes Yes -Type of Bioengineered Tissue Epifix Epifix Epifix 18mm Disc -Expiration Date 04/17/29 05/18/29 02/15/29 -Product Lot Number [id number] -Percent Used 100 100 100 -Lot number of Saline Used [id number] -Bleeding Controlled with Pressure Pressure Pressure -Treatment Response Procedure Procedure Procedure Tolerated Well Tolerated Well Tolerated Well -Offloading Yes Yes -Type of Offloading Surgical Shoe Surgical Shoe -Debridement - Subq, 1st 20sq cm No No Yes -Apply Skin Sub - 1st 25 sq cm - Feet 1 1 -Epifix Application 1-4 (per sq cm) 4 4 #3 right lateral foot -Time 11:26 09:16 09:00 -Correct Patient Yes Yes Yes -Correct Side, Site, Position Yes Yes Yes -Correct Procedure Yes Yes Yes -Procedure Performed Yes Yes Yes -Type of Procedure Debridement Debridement Debridement -Clinical Debridement Subcutaneous Subcutaneous Bone -Tissue Removed Subcutaneous Subcutaneous Subcutaneous, Muscle -Post Debridement (cm) - Length 1.2 1.3 0.5 -Post Debridement (cm) - Width 1.3 1.3 0.5 -Post Debridement (cm) - Depth 0.2 0.1 0.3 -Total Square (Post) (cm) 1.56 1.69 0.25 -Area of Debridement (cm) - Length 1.2 1.3 0.5 -Area of Debridement (cm) - Width 1.3 1.3 0.5 -Total Square (Area) (cm) 1.56 1.69 0.25 -Tunneling No No No -Undermining/Tunneling No No No -Circular Undermining No No No -Wound/Ulcer Outcome Not Healed Not Healed Not Healed -Ulcer Cleansing Rinsed/ Rinsed/ Rinsed/ Irrigated with Irrigated with Irrigated with Saline Saline Saline -Foul Odor after Cleansing No No No -Bioengineered Tissue No No -Bleeding Controlled with Pressure Pressure Pressure -Treatment Response Procedure Procedure Procedure Tolerated Well Tolerated Well Tolerated Well -Offloading Yes No -Type of Offloading Surgical Shoe -Debridement - Subq, 1st 20sq cm Yes Yes -Debridement - Bone, 1st 20sq cm Yes Pain Scale: 0-10 Numeric Is Patient Pain Free? Yes Yes Yes - Nurse 3 - General Ulcer D/C NN Start: 10/24/24 11:00 Freq: Status: Active Protocol: Activity Type Activity Date Activity User E-sign Co-sign Detail Recorded Client Recorded Date Recorded By Document 10/24/24 11:50 TX [id number] 10/24/24 11:51 TX Document 10/31/24 09:41 RB [id number] 10/31/24 09:42 RB Document 11/07/24 09:24 MT [id number] 11/07/24 09:24 MT 10/24/24 10/31/24 11/07/24 11:50 09:41 09:24 Wound Care Center Nurse 3 #4 right heel -Foul Odor after Cleansing No No -Negative Pressure Wound Therapy N/A N/A -Other Dressing hydrogel/ ABD abd -Primary Dressing Covered/Secured with Dry Gauze & Dry Gauze & Dry Gauze & Roll Gauze, Roll Gauze, Roll Gauze, Secured with Secured with Secured with Tape Tape Tape #3 right lateral foot -Foul Odor after Cleansing No No -Negative Pressure Wound Therapy N/A N/A -Other Dressing abd hydrogel/ ABD abd -Primary Dressing Covered/Secured with Dry Gauze & Dry Gauze & Dry Gauze & Roll Gauze, Roll Gauze, Roll Gauze, Secured with Secured with Secured with Tape Tape Tape RLE -Compression Wrap Donte Wrap -Other donte Treatment Response Procedure Tolerated Well Pain Scale: 0-10 Numeric Is Patient Pain Free? Yes Yes Yes - Visit Discharge Discharge Condition Stable Stable Ambulatory Status Ambulatory, Ambulatory, Walker Walker Transportation Private Auto Private Auto Medication Reconcilliation completed & No No provided to patient/care provider Clinical Summary of Care Provided Yes Yes Assessment/Plan Assessment/Plan (1) Non-pressure chronic ulcer of right heel and midfoot with fat layer exposed: CODE(S): L97.412 - Non-pressure chronic ulcer of right heel and midfoot wi th fat layer exposed PLAN: Patient was examined and evaluated. All findings were discussed with the patient. All questions were answered to the patient's satisfaction. Excisional debridement down to and including subcutaneous tissue of the right posterior heel with a number 5 mm dermal curette without incident. Predebridement measurement was not smaller so was at 1.8 x 0.5 x 0.1 cm. Postdebridement measurement is 2.0 x 0.7 x 0.2 cm. EpiFix 18 mm disc graft was applied to the right heel full-thickness ulceration with 100% use. Fourth application. The graft site was free and clear of any infection. The wound/skin graft substitute was dressed with nonadherent bandage secured in place with Steri-Strips followed by bolster dressing as well as a single Tubigrip compression bandage donned to the right lower extremity. Excisional debridement down to and including subcutaneous tissue, fascia muscle and bone to the right TMA full-thickness ulceration with a number 5 mm dermal curette without incident. Predebridement measurement was callus. postdebridement measurement is 0.5 x 0.5 x 0.3 cm. Educated patient to leave the dressing clean dry and intact until follow-up. He will continue to offload the left heel and foot. We are still waiting on the patient's home health care for dressing change orders. Educated patient continue strict blood sugar control which she is understanding of. Follow-up at the wound care center with Dr. Lyons in 1 week. (2) Non-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: CODE(S): L97.514 - Non-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
[2024-11-14 08:08] VITALS: BP 115/44; PULSE 85; RESP 15; TEMP 35.7; BMI 26.4
--- NOTE | 2024-11-19 10:18 | PN.PCM_ITS ---
History of Present Illness Date of Service: 11/14/24 Chief Complaint: Ulcer right foot History of Wound: Patient presents to the wound care center today follow-up evaluation of full-thickness wounds to the right lower extremity. Patient was recently in the hospital for the past 2 weeks due to GI bleed was treated and discharge. He is following today for continued wound care to the right lower extremity. Progress of Wound: Full-thickness wound right heel, and transmetatarsal amputation site stable no sign of infection. Subjective Subjective Mr. Coronel is a 73-year-old diabetic male presented with his send a follow-up evaluation of full-thickness wound to the right heel and transmetatarsal amputation sites. Patient is admit to smoking a few cigarettes a day but has really cut back. He has left his dressing clean dry and intact. He denies trauma. Denies constitutional symptoms. No pedal complaints at this time. Objective Data Objective Data Vital Signs: Vital Signs Temp Pulse Resp BP O2 Del Method 96.3 F L 85 15 115/44 L Room Air 11/14/24 08:08 11/14/24 08:08 11/14/24 08:08 11/14/24 08:08 11/07/24 08:51 Oxygen Delivery Method Room Air Weight: 86.183 kg Body Mass Index (BMI) 26.4 Physical Exam Narrative Vascular: DP and PT pulses are palpable to the right lower extremity. CFT is brisk to the flap to the right foot. Skin temperature great is warm to warm from proximal ankles to distal digits. Neurological: Light touch intact. Patient does not respond to painful stimuli. Dermatological: Right transmetatarsal amputation site full-thickness wound measures 0.8 x 0.6 x 0.4 cm. Positive probe to bone. No sign of infection. Full-thickness wound to the right heel measuring 0.9 x 1.8 x 0.2 cm. Excisional debridement down to and including subcutaneous tissue of the right posterior heel with a number 5 mm dermal curette without incident. Predebridement measurement was not smaller so was at 0.6 x 1.5 x 0.1 cm. Postdebridement measurement is 0.9 x 1.8 x 0.2 cm. EpiFix 18 mm disc graft was applied to the right heel full-thickness ulceration with 100% use. Fifth application. The graft site was free and clear of any infection. The wound/skin graft substitute was dressed with nonadherent bandage secured in place with Steri-Strips followed by bolster dressing as well as a single Tubigrip compression bandage donned to the right lower extremity. Excisional debridement down to and including subcutaneous tissue, fascia muscle and bone to the right TMA full-thickness ulceration with a number 5 mm dermal curette without incident. Predebridement measurement was callus. postdebridement measurement is 0.8 x 0.6 x 0.4 cm. Musculoskeletal:. Muscle strength is 5 out of 5 in all quadrants to the right lower extremity. No pain to palpation to the full-thickness wounds to the right lower extremity. No pain with calf pressure. Debridement Note Debridement Note Debridement Free Text: Excisional debridement down to and including subcutaneous tissue of the right posterior heel with a number 5 mm dermal curette without incident. Predebridement measurement was not smaller so was at 0.6 x 1.5 x 0.1 cm. Postdebridement measurement is 0.9 x 1.8 x 0.2 cm. EpiFix 18 mm disc graft was applied to the right heel full-thickness ulceration with 100% use. Fifth application. The graft site was free and clear of any infection. The wound/skin graft substitute was dressed with nonadherent bandage secured in place with Steri-Strips followed by bolster dressing as well as a single Tubigrip compression bandage donned to the right lower extremity. Excisional debridement down to and including subcutaneous tissue, fascia muscle and bone to the right TMA full-thickness ulceration with a number 5 mm dermal curette without incident. Predebridement measurement was callus. postdebridement measurement is 0.8 x 0.6 x 0.4 cm. Post-Debridement Measurements and Additional Note: Post-Debridement Measurements/Treatment WC - Nurse 1 - General Ulcer Assessment Start: 10/24/24 11:00 Freq: Status: Active Protocol: YOCASTA Activity Type Activity Date Activity User E-sign Co-sign Detail Recorded Client Recorded Date Recorded By Document 10/24/24 11:05 KW [id number] 10/24/24 11:12 KW Document 10/31/24 08:48 RB [id number] 10/31/24 08:57 RB Document 11/07/24 08:51 GM [id number] 11/07/24 08:55 GM 10/24/24 10/31/24 11/07/24 11:05 08:48 08:51 WC - Today's Visit Information Type of service Follow-up Visit Follow-up Visit Follow-up Visit (Physician/MIXING MACHINE OPERATOR (Physician/MIXING MACHINE OPERATOR (Physician/MIXING MACHINE OPERATOR ) ) ) Arrival Mode Wheelchair Ambulatory, Ambulatory, Walker Walker Transfer Assistance None None Patient Identification Verified (Name & Yes Yes Yes ) Patient Requires Transmission-Based No Precautions Height and Weight Body Mass Index (BMI) 26.4 26.4 26.4 BMI Classification Overweight Overweight Overweight Vital Signs Temperature (97.8 F-99.1 F) 97.1 F L 97 F L 97.5 F L Temperature Source Temporal Temporal Temporal Pulse Rate (60-100) 95 94 94 Pulse Location Monitor Monitor Monitor Respiratory Rate (12-18) 16 18 16 Respiratory rate source Monitor Observation Observation Oxygen Delivery Method Room Air Room Air Blood Pressure (90/60-120/80) 129/52 H 120/43 L 133/61 H Blood Pressure Mean (mm Hg) 77 68 85 Source Monitor Monitor Monitor Position Semi-Fowlers Semi-Fowlers Sitting Blood Pressure Location Left Arm Left Arm Left Arm History Since Last Visit- (Skip if this is Patient's initial visit) Have you changed medications since your No No No last visit? Any new allergies or adverse reactions No No No Had a fall/change in ADL's that may No No No increase risk of falls Signs or symptoms of abuse and/or No No No neglect since last visit Have you been in the hospital since your No No No last visit? Has dressing in place as prescribed Yes Yes Yes Has compression in place as prescribed Yes Yes Yes Has offloadiing in place as prescribed Yes Yes Yes Experienced any changes in pain level or No No No management Left Footwear Surgical Shoe Regular Shoe Slipper with pressure relief insole Right Footwear Regular Shoe Surgical Shoe Surgical Shoe with pressure with pressure relief insole relief insole Pain Scale: 0-10 Numeric Is Patient Pain Free? Yes Yes Yes - Nurse 1 - General Ulcer Measurement Start: 10/24/24 11:00 Freq: Status: Active Protocol: Activity Type Activity Date Activity User E-sign Co-sign Detail Recorded Client Recorded Date Recorded By Document 10/24/24 11:05 [id number] 10/24/24 11:12 KW Document 10/31/24 08:48 RB [id number] 10/31/24 08:57 RB Document 11/07/24 08:51 GM [id number] 11/07/24 08:55 GM 10/24/24 10/31/24 11/07/24 11:05 08:48 08:51 Wound Center Nurse 1 #4 right heel -Combined with other wound No -Current Size (cm) - Length 1.5 0.1 2.3 -Current Size (cm) - Width 0.5 0.1 1.0 -Current Size (cm) - Depth 0.1 0.1 0.1 -Total Square Cm 0.75 0.01 2.30 -Date of Last Picture (Recall this 10/24/24 field) -Photo Taken Yes No -Epithelialization Medium 34-66% Small 1-33% -Tunneling No No -Undermining/Tunneling No No -Circular Undermining No No -Exudate Amt Medium Small -Exudate Type Serosanguineous Yellow/Green -Wound Margin Distinct, Distinct, Outline Outline Attached Attached -Granulation Amt Small (1-33%) Medium (34-66%) Medium (34-66%) -Granulation Quality Webb Webb Webb -Slough/Fibrin Yes Yes -Necrosis Amt Large (67-100%) Small (1-33%) -Necrotic Tissue Type Adherent Slough Adherent Slough Adherent Slough -Structure Exposed N/A -Texture (Donna-wound Skin Appearance) Assessed Assessed Assessed -Moisture (Donna-wound Skin Appearance) Assessed Assessed,Dry/ Assessed Scaly -Color (Donna-wound Skin Appearance) Assessed Assessed Assessed -Temperature (Donna-wound Skin No Abnormality No Abnormality No Abnormality Appearance) (Pt Warm) (Pt Warm) (Pt Warm) -Tenderness on Palpation (Donna-wound No No No Skin Appearance) -Ulcer Cleansing Soap and Water Wound Cleanser Soap and Water -Foul Odor after Cleansing No No No -Anesthetic Used 5% Lidocaine 5% Lidocaine 5% Lidocaine Gel Gel Gel #3 right lateral foot -Combined with other wound No -Current Size (cm) - Length 0.1 0.5 1.0 -Current Size (cm) - Width 0.1 1 1.0 -Current Size (cm) - Depth 0.1 0.2 0.1 -Total Square Cm 0.01 0.5 1.00 -Date of Last Picture (Recall this 10/24/24 field) -Photo Taken Yes No -Epithelialization Small 1-33% -Tunneling No No -Undermining/Tunneling No No -Circular Undermining No No -Exudate Amt None Present Medium Small -Exudate Type Serosanguineous Yellow/Green -Wound Margin Distinct, Distinct, Outline Outline Attached Attached -Granulation Amt None Present (0 Medium (34-66%) Small (1-33%) %) -Granulation Quality Webb Webb -Slough/Fibrin Yes Yes -Necrosis Amt Large (67-100%) Medium (34-66%) -Necrotic Tissue Type Adherent Slough Adherent Slough Adherent Slough -Structure Exposed N/A -Texture (Donna-wound Skin Appearance) Assessed Assessed Assessed -Moisture (Donna-wound Skin Appearance) Assessed Dry/Scaly Assessed -Color (Donna-wound Skin Appearance) Assessed Assessed Assessed -Temperature (Donna-wound Skin No Abnormality No Abnormality No Abnormality Appearance) (Pt Warm) (Pt Warm) (Pt Warm) -Tenderness on Palpation (Donna-wound No No No Skin Appearance) -Ulcer Cleansing Soap and Water Wound Cleanser Soap and Water -Foul Odor after Cleansing No No No -Anesthetic Used 5% Lidocaine 5% Lidocaine 5% Lidocaine Gel Gel Gel WC - Nurse 2 - General Ulcer CM Notes Start: 10/24/24 11:00 Freq: Status: Active Protocol: Activity Type Activity Date Activity User E-sign Co-sign Detail Recorded Client Recorded Date Recorded By Document 10/24/24 11:26 [id number] 10/24/24 11:36 Document 10/31/24 09:14 [id number] 10/31/24 09:19 Document 11/07/24 08:58 DS [id number] 11/07/24 09:10 DS 10/24/24 10/31/24 11/07/24 11:26 09:14 08:58 Wound Center Nurse 2 #4 right heel -Time 11:30 09:15 08:58 -Correct Patient Yes Yes Yes -Correct Side, Site, Position Yes Yes Yes -Correct Procedure Yes Yes Yes -Procedure Performed Yes Yes Yes -Type of Procedure Debridement Debridement Debridement -Clinical Debridement Subcutaneous Subcutaneous Subcutaneous -Tissue Removed Subcutaneous Subcutaneous Subcutaneous, Muscle -Post Debridement (cm) - Length 2.0 2.3 2.0 -Post Debridement (cm) - Width 1.0 1.3 0.7 -Post Debridement (cm) - Depth 0.2 0.1 0.2 -Total Square (Post) (cm) 2.00 2.99 1.40 -Area of Debridement (cm) - Length 2.0 2.3 2.0 -Area of Debridement (cm) - Width 1.0 1.3 0.7 -Total Square (Area) (cm) 2.00 2.99 1.40 -Tunneling No No No -Undermining/Tunneling No No No -Circular Undermining No No No -Wound/Ulcer Outcome Not Healed Not Healed Not Healed -Ulcer Cleansing Rinsed/ Rinsed/ Rinsed/ Irrigated with Irrigated with Irrigated with Saline Saline Saline -Foul Odor after Cleansing No No No -Bioengineered Tissue Yes Yes Yes -Type of Bioengineered Tissue Epifix Epifix Epifix 18mm Disc -Expiration Date 04/17/29 05/18/29 02/15/29 -Product Lot Number [id number] -Percent Used 100 100 100 -Lot number of Saline Used [id number] -Bleeding Controlled with Pressure Pressure Pressure -Treatment Response Procedure Procedure Procedure Tolerated Well Tolerated Well Tolerated Well -Offloading Yes Yes -Type of Offloading Surgical Shoe Surgical Shoe -Debridement - Subq, 1st 20sq cm No No Yes -Apply Skin Sub - 1st 25 sq cm - Feet 1 1 -Epifix Application 1-4 (per sq cm) 4 4 #3 right lateral foot -Time 11:26 09:16 09:00 -Correct Patient Yes Yes Yes -Correct Side, Site, Position Yes Yes Yes -Correct Procedure Yes Yes Yes -Procedure Performed Yes Yes Yes -Type of Procedure Debridement Debridement Debridement -Clinical Debridement Subcutaneous Subcutaneous Bone -Tissue Removed Subcutaneous Subcutaneous Subcutaneous, Muscle -Post Debridement (cm) - Length 1.2 1.3 0.5 -Post Debridement (cm) - Width 1.3 1.3 0.5 -Post Debridement (cm) - Depth 0.2 0.1 0.3 -Total Square (Post) (cm) 1.56 1.69 0.25 -Area of Debridement (cm) - Length 1.2 1.3 0.5 -Area of Debridement (cm) - Width 1.3 1.3 0.5 -Total Square (Area) (cm) 1.56 1.69 0.25 -Tunneling No No No -Undermining/Tunneling No No No -Circular Undermining No No No -Wound/Ulcer Outcome Not Healed Not Healed Not Healed -Ulcer Cleansing Rinsed/ Rinsed/ Rinsed/ Irrigated with Irrigated with Irrigated with Saline Saline Saline -Foul Odor after Cleansing No No No -Bioengineered Tissue No No -Bleeding Controlled with Pressure Pressure Pressure -Treatment Response Procedure Procedure Procedure Tolerated Well Tolerated Well Tolerated Well -Offloading Yes No -Type of Offloading Surgical Shoe -Debridement - Subq, 1st 20sq cm Yes Yes -Debridement - Bone, 1st 20sq cm Yes Pain Scale: 0-10 Numeric Is Patient Pain Free? Yes Yes Yes - Nurse 3 - General Ulcer D/C NN Start: 10/24/24 11:00 Freq: Status: Active Protocol: Activity Type Activity Date Activity User E-sign Co-sign Detail Recorded Client Recorded Date Recorded By Document 10/24/24 11:50 MI [id number] 10/24/24 11:51 MI Document 10/31/24 09:41 RB [id number] 10/31/24 09:42 RB Document 11/07/24 09:24 MT [id number] 11/07/24 09:24 MT 10/24/24 10/31/24 11/07/24 11:50 09:41 09:24 Wound Care Center Nurse 3 #4 right heel -Foul Odor after Cleansing No No -Negative Pressure Wound Therapy N/A N/A -Other Dressing hydrogel/ ABD abd -Primary Dressing Covered/Secured with Dry Gauze & Dry Gauze & Dry Gauze & Roll Gauze, Roll Gauze, Roll Gauze, Secured with Secured with Secured with Tape Tape Tape #3 right lateral foot -Foul Odor after Cleansing No No -Negative Pressure Wound Therapy N/A N/A -Other Dressing abd hydrogel/ ABD abd -Primary Dressing Covered/Secured with Dry Gauze & Dry Gauze & Dry Gauze & Roll Gauze, Roll Gauze, Roll Gauze, Secured with Secured with Secured with Tape Tape Tape RLE -Compression Wrap Donte Wrap -Other donte Treatment Response Procedure Tolerated Well Pain Scale: 0-10 Numeric Is Patient Pain Free? Yes Yes Yes - Visit Discharge Discharge Condition Stable Stable Ambulatory Status Ambulatory, Ambulatory, Walker Walker Transportation Private Auto Private Auto Medication Reconcilliation completed & No No provided to patient/care provider Clinical Summary of Care Provided Yes Yes Assessment/Plan Assessment/Plan (1) Non-pressure chronic ulcer of right heel and midfoot with fat layer exposed: CODE(S): L97.412 - Non-pressure chronic ulcer of right heel and midfoot with fat layer exposed PLAN: Patient was examined and evaluated. All findings were discussed with the patient. All questions were answered to the patient's satisfaction. Excisional debridement down to and including subcutaneous tissue of the right posterior heel with a number 5 mm dermal curette without incident. Predebridement measurement was not smaller so was at 0.6 x 1.5 x 0.1 cm. Postdebridement measurement is 0.9 x 1.8 x 0.2 cm. EpiFix 18 mm disc graft was applied to the right heel full-thickness ulceration with 100% use. Fifth application. The graft site was free and clear of any infection. The wound/skin graft substitute was dressed with nonadherent bandage secured in place with Steri-Strips followed by bolster dressing as well as a single Tubigrip compression bandage donned to the right lower extremity. Excisional debridement down to and including subcutaneous tissue, fascia muscle and bone to the right TMA full-thickness ulceration with a number 5 mm dermal curette without incident. Predebridement measurement was callus. postdebridement measurement is 0.8 x 0.6 x 0.4 cm. Educated patient to leave the dressing clean dry and intact until follow-up. He will continue to offload the left heel and foot. We are still waiting on the patient's home health care for dressing change orders. Educated patient continue strict blood sugar control which she is understanding of. Follow-up at the wound care center with Dr. Lyons in 1 week. (2) Non-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: CODE(S): L97.514 - Non-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
== END 2024-11-14 23:59 | disposition home or self-care (01) ==
LOC: WC 08:15
PROVIDERS: PCP Family Medicine Geriatric Medicine; Referring Provider Podiatrist Foot & Ankle Surgery; Visit Provider Podiatrist Foot & Ankle Surgery
DX: L97.412 Non-pressure chronic ulcer of right heel and midfoot with fat layer exposed (principal); L97.512 Non-pressure chronic ulcer of other part of right foot with fat layer exposed; F17.210 Nicotine dependence, cigarettes, uncomplicated; Z89.429 Acquired absence of other toe(s), unspecified side
CPT/HCPCS: 11042; 11044; 15275; Q4186

== ENCOUNTER → 2024-11-20 | Outpatient (CLI) | payer MEDICARE, MEDICAID, SELFPAY ==
[2024-11-20 16:16] LABS: International Normalized Ratio 1.6; Prothrombin Time (Protime)PT. 18.9 SECONDS (11.7-14.9)
== END | disposition home or self-care (01) ==
PROVIDERS: PCP Family Medicine Geriatric Medicine; Referring Provider Internal Medicine Cardiovascular Disease; Visit Provider Internal Medicine Cardiovascular Disease
DX: Z95.2 Presence of prosthetic heart valve (principal)
CPT/HCPCS: 36415; 85610

== ENCOUNTER 2024-12-12 08:00 | Outpatient (RCR) | payer MEDICARE, MEDICAID, SELFPAY ==
[2024-11-15 00:12] VITALS: BP 115/44; PULSE 85; RESP 15; TEMP 35.7; BMI 26.4
[2024-11-21 08:43] VITALS: BP 119/32; PULSE 95; RESP 18; TEMP 35.9; BMI 26.4
--- NOTE | 2024-11-21 09:34 | PN.PCM_ITS ---
History of Present Illness Date of Service: 11/21/24 Chief Complaint: Ulcer right foot History of Wound: Patient presents to the wound care center today follow-up evaluation of full-thickness wounds to the right lower extremity. Patient was recently in the hospital for the past 2 weeks due to GI bleed was treated and discharge. He is following today for continued wound care to the right lower extremity. Progress of Wound: Stable full-thickness wound right lower extremity. No sign of infection. Subjective Subjective Mr. Coronel is a 73-year-old diabetic male presenting to wound care center today for follow-up evaluation of full-thickness wounds to the right lower extremity to the level of the TMA and heel. Patient has been leaving his dressing clean dry and intact. He is elevating as discussed. His blood sugars well- controlled. He is smoking more than usual since he is at home and has much more free time than being in the facility. He denies any trauma. Denies constitut ional symptoms. No other pedal complaints at this time. Objective Data Objective Data Vital Signs: Vital Signs Temp Pulse Resp BP O2 Del Method 96.6 F L 95 18 119/32 L Room Air 11/21/24 08:43 11/21/24 08:43 11/21/24 08:43 11/21/24 08:43 11/21/24 08:43 Oxygen Delivery Method Room Air Weight: 86.183 kg Body Mass Index (BMI) 26.4 Physical Exam Narrative Vascular: DP and PT pulses are palpable to the right lower extremity. CFT is brisk to the flap to the right foot. Skin temperature great is warm to warm from proximal ankles to distal digits. Neurological: Light touch intact. Patient does not respond to painful stimuli. Dermatological: Right transmetatarsal amputation site full-thickness wound measures 0.6 x 0.5 x 0.5 cm. Positive probe to bone. No sign of infection. Full-thickness wound to the right heel measuring 0.4 x 1.4 x 0.2 cm. Excisional debridement down to and including subcutaneous tissue of the right posterior heel with a number 5 mm dermal curette without incident. Predebridement measurement was not smaller so was at callus postdebridement measurement is 0.4 x 1.4 x 0.2 cm. EpiFix 18 mm disc graft was applied to the right heel full-thickness ulceration with 100% use. Sixth application. The graft site was free and clear of any infection. The wound/skin graft substitute was dressed with nonadherent bandage secured in place with Steri-Strips followed by bolster dressing as well as a single Tubigrip compression bandage donned to the right lower extremity. Excisional debridement down to and including subcutaneous tissue, fascia muscle and bone to the right TMA full-thickness ulceration with a number 5 mm dermal curette without incident. Predebridement measurement was callus. postdebridement measurement is 0.6 x 0.5 x 0.5 cm. Musculoskeletal:. Muscle strength is 5 out of 5 in all quadrants to the right lower extremity. No pain to palpation to the full-thickness wounds to the right lower extremity. No pain with calf pressure. Debridement Note Debridement Note Debridement Free Text: Excisional debridement down to and including subcutaneous tissue of the right posterior heel with a number 5 mm dermal curette without incident. Predebridement measurement was not smaller so was at callus postdebridement measurement is 0.4 x 1.4 x 0.2 cm. EpiFix 18 mm disc graft was applied to the right heel full-thickness ulceration with 100% use. Sixth application. The graft site was free and clear of any infection. The wound/skin graft substitute was dressed with nonadherent bandage secured in place with Steri-Strips followed by bolster dressing as well as a single Tubigrip compression bandage donned to the right lower extremity. Excisional debridement down to and including subcutaneous tissue, fascia muscle and bone to the right TMA full-thickness ulceration with a number 5 mm dermal curette without incident. Predebridement measurement was callus. postdebridement measurement is 0.6 x 0.5 x 0.5 cm. Post-Debridement Measurements and Additional Note: Post-Debridement Measurements/Treatment - Nurse 1 - General Ulcer Assessment Start: 11/21/24 08:40 Freq: Status: Active Protocol: FLAVIOEXEllen Activity Type Activity Date Activity User E-sign Co-sign Detail Recorded Client Recorded Date Recorded By Document 11/21/24 08:43 KW [id number] 11/21/24 08:51 KW 11/21/24 08:43 - Today's Visit Information Type of service Follow-up Visit (Physician/CREATIVE DIRECTOR ) Arrival Mode Ambulatory, Walker Patient Identification Verified (Name & Yes ) Height and Weight Body Mass Index (BMI) 26.4 BMI Classification Overweight Vital Signs Temperature (97.8 F-99.1 F) 96.6 F L Temperature Source Temporal Pulse Rate (60-100) 95 Pulse Location Monitor Respiratory Rate (12-18) 18 Respiratory rate source Observation Oxygen Delivery Method Room Air Blood Pressure (90/60-120/80) 119/32 L Blood Pressure Mean (mm Hg) 61 Source Monitor Position Semi-Fowlers Blood Pressure Location Left Arm History Since Last Visit- (Skip if this is Patient's initial visit) Have you changed medications since your No last visit? Any new allergies or adverse reactions No Had a fall/change in ADL's that may No increase risk of falls Signs or symptoms of abuse and/or No neglect since last visit Have you been in the hospital since your No last visit? Has dressing in place as prescribed Yes Has compression in place as prescribed Yes Has offloadiing in place as prescribed Yes Experienced any changes in pain level or No management Left Footwear Regular Shoe Right Footwear Surgical Shoe with pressure relief insole Pain Scale: 0-10 Numeric Is Patient Pain Free? Yes WC - Nurse 1 - General Ulcer Measurement Start: 11/21/24 08:40 Freq: Status: Active Protocol: Activity Type Activity Date Activity User E-sign Co-sign Detail Recorded Client Recorded Date Recorded By Document 11/21/24 08:43 KW [id number] 11/21/24 08:51 KW 11/21/24 08:43 Wound Center Nurse 1 #4 right heel -Current Size (cm) - Length 2 -Current Size (cm) - Width 2.5 -Current Size (cm) - Depth 0.2 -Total Square Cm 5.0 -Date of Last Picture (Recall this 11/21/24 field) -Exudate Amt Medium -Exudate Type Serosanguineous -Wound Margin Distinct, Outline Attached -Granulation Amt Small (1-33%) -Granulation Quality [place] -Necrosis Amt Large (67-100%) -Necrotic Tissue Type Adherent Slough -Texture (Donna-wound Skin Appearance) Assessed -Moisture (Donna-wound Skin Appearance) Assessed -Color (Donna-wound Skin Appearance) Assessed -Temperature (Donna-wound Skin No Abnormality Appearance) (Pt Warm) -Tenderness on Palpation (Donna-wound No Skin Appearance) -Ulcer Cleansing Soap and Water -Foul Odor after Cleansing No -Anesthetic Used 5% Lidocaine Gel #3 right lateral foot -Current Size (cm) - Length 1 -Current Size (cm) - Width 0.5 -Current Size (cm) - Depth 0.2 -Total Square Cm 0.5 -Date of Last Picture (Recall this 11/21/24 field) -Exudate Amt Medium -Exudate Type Serosanguineous -Wound Margin Distinct, Outline Attached -Granulation Amt Small (1-33%) -Granulation Quality [place] -Necrosis Amt Large (67-100%) -Necrotic Tissue Type Adherent Slough -Texture (Donna-wound Skin Appearance) Assessed -Moisture (Donna-wound Skin Appearance) Assessed -Color (Donna-wound Skin Appearance) Assessed -Temperature ([place]-wound Skin No Abnormality Appearance) (Pt Warm) -Tenderness on Palpation (Donna-wound No Skin Appearance) -Ulcer Cleansing Soap and Water -Foul Odor after Cleansing No -Anesthetic Used 5% Lidocaine Gel WC - Nurse 2 - General Ulcer CM Notes Start: 11/21/24 08:40 Freq: Status: Active Protocol: Activity Type Activity Date Activity User E-sign Co-sign Detail Recorded Client Recorded Date Recorded By Document 11/21/24 09:02 NESS [id number] 11/21/24 09:09 NESS 11/21/24 09:02 Wound Center Nurse 2 #4 right heel -Time 09:02 -Correct Patient Yes -Correct Side, Site, Position Yes -Correct Procedure Yes -Procedure Performed Yes -Type of Procedure Debridement -Clinical Debridement Subcutaneous -Tissue Removed Subcutaneous -Post Debridement (cm) - Length 1.4 -Post Debridement (cm) - Width 0.4 -Post Debridement (cm) - Depth 0.2 -Total Square (Post) (cm) 0.56 -Area of Debridement (cm) - Length 1.4 -Area of Debridement (cm) - Width 0.4 -Total Square (Area) (cm) 0.56 -Tunneling No -Undermining/Tunneling No -Circular Undermining No -Wound/Ulcer Outcome Not Healed -Ulcer Cleansing Rinsed/ Irrigated with Saline -Foul Odor after Cleansing No -Bioengineered Tissue Yes -Type of Bioengineered Tissue Epifix 18mm Disc -Expiration Date 05/18/29 -Product Lot Number [id number] -Percent Used 100 -Lot number of Saline Used [id number] -Bleeding Controlled with Pressure -Treatment Response Procedure Tolerated Well -Offloading Yes -Type of Offloading Surgical Shoe -Debridement - Subq, 1st 20sq cm No -Apply Skin Sub - 1st 25 sq cm - Feet 1 -Epifix 18mm Disc Application 1-4 3 #3 right lateral foot -Time 09:07 -Correct Patient Yes -Correct Side, Site, Position Yes -Correct Procedure Yes -Procedure Performed Yes -Type of Procedure Debridement -Clinical Debridement Bone -Tissue Removed Non-viable tissue -Post Debridement (cm) - Length 0.6 -Post Debridement (cm) - Width 0.5 -Post Debridement (cm) - Depth 0.5 -Total Square (Post) (cm) 0.30 -Area of Debridement (cm) - Length 0.6 -Area of Debridement (cm) - Width 0.5 -Total Square (Area) (cm) 0.30 -Tunneling No -Undermining/Tunneling No -Circular Undermining No -Wound/Ulcer Outcome Not Healed -Ulcer Cleansing Rinsed/ Irrigated with Saline -Foul Odor after Cleansing No -Bioengineered Tissue No -Bleeding Controlled with Pressure -Offloading Yes -Type of Offloading Surgical Shoe -Debridement - Bone, 1st 20sq cm Yes Pain Scale: 0-10 Numeric Is Patient Pain Free? Yes - Nurse 3 - General Ulcer D/C NN Start: 11/21/24 08:40 Freq: Status: Active Protocol: Activity Type Activity Date Activity User E-sign Co-sign Detail Recorded Client Recorded Date Recorded By Document 11/21/24 09:20 [id number] 11/21/24 09:21 KW 11/21/24 09:20 Wound Care Center Nurse 3 #4 right heel -Primary Dressing Covered/Secured with Dry Gauze & Roll Gauze, Secured with Tape #3 right lateral foot -Primary Dressing Covered/Secured with Dry Gauze & Roll Gauze, Secured with Tape RLE -Compression Wrap Donte Wrap Pain Scale: 0-10 Numeric Is Patient Pain Free? Yes - Visit Discharge Discharge Condition Stable Ambulatory Status Ambulatory, Walker Transportation Private Auto Medication Reconcilliation completed & No provided to patient/care provider Clinical Summary of Care Provided Yes Assessment/Plan Assessment/Plan (1) Non-pressure chronic ulcer of right heel and midfoot with fat layer exposed: CODE(S): L97.412 - Non-pressure chronic ulcer of right heel and midfoot with fat layer exposed PLAN: Patient was examined and evaluated. All findings were discussed with the patient. All questions were answered to the patient's satisfaction. Excisional debridement down to and including subcutaneous tissue of the right posterior heel with a number 5 mm dermal curette without incident. Predebridement measurement was not smaller so was at callus postdebridement measurement is 0.4 x 1.4 x 0.2 cm. EpiFix 18 mm disc graft was applied to the right heel full-thickness ulceration with 100% use. Sixth application. The graft site was free and clear of any infection. The wound/skin graft substitute was dressed with nonadherent bandage secured in place with Steri-Strips followed by bolster dressing as well as a single Tubigrip compression bandage donned to the right lower extremity. Excisional debridement down to and including subcutaneous tissue, fascia muscle and bone to the right TMA full-thickness ulceration with a number 5 mm dermal curette without incident. Predebridement measurement was callus. postdebridement measurement is 0.6 x 0.5 x 0.5 cm. Educated patient to leave the dressing clean dry and intact until follow-up. He will continue to offload the left heel and foot. We are still waiting on the patient's home health care for dressing change orders. Educated patient continue strict blood sugar control which she is understanding of. Follow-up at the wound care center with Dr. Lyons in 1 week. (2) Non-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: CODE(S): L97.514 - Non-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
--- NOTE | 2024-11-22 10:39 | WC ---
PHOTO 11/21/24 RIGHT TMA
--- NOTE | 2024-11-22 10:40 | WC ---
PHOTO 11/21/24 RIGHT HEEL
[2024-11-28 09:40] VITALS: BP 125/58; PULSE 95; RESP 18; TEMP 37.4; BMI 26.4
--- NOTE | 2024-11-28 10:31 | PN.PCM_ITS ---
History of Present Illness Date of Service: 11/28/24 Chief Complaint: Ulcer right foot History of Wound: Patient presents to the wound care center today follow-up evaluation of full-thickness wounds to the right lower extremity. Patient was recently in the hospital for the past 2 weeks due to GI bleed was treated and discharge. He is following today for continued wound care to the right lower extremity. Progress of Wound: Stable full-thickness wound right lower extremity. No sign of infection. Subjective Subjective Mr. Coronel is a 73-year-old diabetic male presented wound care center today follow-up evaluation of full-thickness wound to the transmetatarsal amputation site as well as heel in the right lower extremity. Patient has been compliant with dressing changes and left them clean dry and intact. Blood sugars well- controlled. He is offloading as discussed. Denies trauma. Denies constitutional symptoms. No other pedal complaints at this time. Objective Data Objective Data Vital Signs: Vital Signs Temp Pulse Resp BP O2 Del Method 99.3 F H 95 18 125/58 H Room Air 11/28/24 09:40 11/28/24 09:40 11/28/24 09:40 11/28/24 09:40 11/28/24 09:40 Oxygen Delivery Method Room Air Weight: 86.183 kg Body Mass Index (BMI) 26.4 Physical Exam Narrative Vascular: DP and PT pulses are palpable to the right lower extremity. CFT is brisk to the flap to the right foot. Skin temperature great is warm to warm from proximal ankles to distal digits. Neurological: Light touch intact. Patient does not respond to painful stimuli. Dermatological: Right transmetatarsal amputation site full-thickness wound measures 0.6 x 0.4 x 0.3 cm. Positive probe to bone. No sign of infection. Full-thickness wound to the right heel measuring 0.8 x 0.3 x 0.2 cm. Excisional debridement down to and including subcutaneous tissue of the right posterior heel with a number 5 mm dermal curette without incident. Predebridement measurement was not smaller so was at callus. postdebridement measurement is 0.8 x 0.3 x 0.2 cm. EpiFix 18 mm disc graft was applied to the right heel full-thickness ulceration with 100% use. Seventh application. The graft site was free and clear of any infection. The wound/skin graft substitute was dressed with nonadherent bandage secured in place with Steri-Strips followed by bolster dressing as well as a single Tubigrip compression bandage donned to the right lower extremity. Excisional debridement down to and including subcutaneous tissue, fascia muscle and bone to the right TMA full-thickness ulceration with a number 5 mm dermal curette without incident. Predebridement measurement was callus. postdebridement measurement is 0.6 x 0.4 x 0.3 cm. Musculoskeletal:. Muscle strength is 5 out of 5 in all quadrants to the right lower extremity. No pain to palpation to the full-thickness wounds to the right lower extremity. No pain with calf pressure. Debridement Note Debridement Note Debridement Free Text: Excisional debridement down to and including subcutaneous tissue of the right posterior heel with a number 5 mm dermal curette without incident. Predebridement measurement was not smaller so was at callus. postdebridement measurement is 0.8 x 0.3 x 0.2 cm. EpiFix 18 mm disc graft was applied to the right heel full-thickness ulceration with 100% use. Seventh application. The graft site was free and clear of any infection. The wound/skin graft substitute was dressed with nonadherent bandage secured in place with Steri-Strips followed by bolster dressing as well as a single Tubigrip compression bandage donned to the right lower extremity. Excisional debridement down to and including subcutaneous tissue, fascia muscle and bone to the right TMA full-thickness ulceration with a number 5 mm dermal curette without incident. Predebridement measurement was callus. postdebridement measurement is 0.6 x 0.4 x 0.3 cm. Post-Debridement Measurements and Additional Note: Post-Debridement Measurements/Treatment [facility] Nurse 1 - General Ulcer Assessment Start: 11/21/24 08:40 Freq: Status: Active Protocol: YOCASTA Activity Type Activity Date Activity User E-sign Co-sign Detail Recorded Client Recorded Date Recorded By Document 11/21/24 08:43 KW [id number] 11/21/24 08:51 KW Document 11/28/24 09:40 MT [id number] 11/28/24 09:48 MT 11/21/24 11/28/24 08:43 09:40 - Today's Visit Information Type of service Follow-up Visit Follow-up Visit (Physician/ACCOUNTING ANALYST (Physician/ACCOUNTING ANALYST ) ) Arrival Mode Ambulatory, Ambulatory Walker Accompanied by self Patient Identification Verified (Name & Yes Yes ) Safety Precautions Fall Prevention Finger Stick Blood Sugar(mg/dl) (if 144 indicated): Blood Sugar Stated by Patient Height and Weight Body Mass Index (BMI) 26.4 26.4 BMI Classification Overweight Overweight Vital Signs Temperature (97.8 F-99.1 F) 96.6 F L 99.3 F H Temperature Source Temporal Temporal Pulse Rate (60-100) 95 95 Pulse Location Monitor Monitor Respiratory Rate (12-18) 18 18 Respiratory rate source Observation Observation Oxygen Delivery Method Room Air Room Air Blood Pressure (90/60-120/80) 119/32 L 125/58 H Blood Pressure Mean (mm Hg) 61 80 Source Monitor Monitor Position Semi-Fowlers Sitting Blood Pressure Location Left Arm Left Arm History Since Last Visit- (Skip if this is Patient's initial visit) Have you changed medications since your No last visit? Any new allergies or adverse reactions No Had a fall/change in ADL's that may No increase risk of falls Signs or symptoms of abuse and/or No neglect since last visit Have you been in the hospital since your No last visit? Has dressing in place as prescribed Yes Yes Has compression in place as prescribed Yes Yes Has offloadiing in place as prescribed Yes Yes Experienced any changes in pain level or No Yes management Left Footwear Regular Shoe Regular Shoe Right Footwear Surgical Shoe Regular Shoe with pressure relief insole Pain Scale: 0-10 Numeric Is Patient Pain Free? Yes Yes WC - Nurse 1 - General Ulcer Measurement Start: 11/21/24 08:40 Freq: Status: Active Protocol: Activity Type Activity Date Activity User E-sign Co-sign Detail Recorded Client Recorded Date Recorded By Document 11/21/24 08:43 KW [id number] 11/21/24 08:51 KW Document 11/28/24 09:40 MT [id number] 11/28/24 09:48 MT 11/21/24 11/28/24 08:43 09:40 Wound Center Nurse 1 #4 right heel -Current Size (cm) - Length 2 0.1 -Current Size (cm) - Width 2.5 0.1 -Current Size (cm) - Depth 0.2 0.1 -Total Square Cm 5.0 0.01 -Date of Last Picture (Recall this 11/21/24 field) -Exudate Amt Medium Medium -Exudate Type Serosanguineous Serosanguineous -Wound Margin Distinct, Flat & Intact Outline Attached -Granulation Amt Small (1-33%) Medium (34-66%) -Granulation Quality [place] Pale,[place] -Necrosis Amt Large (67-100%) Medium (34-66%) -Necrotic Tissue Type Adherent Slough Adherent Slough -Texture (Donna-wound Skin Appearance) Assessed Assessed,Callus -Moisture (Donna-wound Skin Appearance) Assessed Assessed -Color (Donna-wound Skin Appearance) Assessed Assessed -Temperature (Donna-wound Skin No Abnormality No Abnormality Appearance) (Pt Warm) (Pt Warm) -Tenderness on Palpation (Donna-wound No No Skin Appearance) -Ulcer Cleansing Soap and Water Soap and Water -Foul Odor after Cleansing No No -Anesthetic Used 5% Lidocaine 5% Lidocaine Gel Gel #3 right lateral foot -Current Size (cm) - Length 1 0.5 -Current Size (cm) - Width 0.5 0.5 -Current Size (cm) - Depth 0.2 0.4 -Total Square Cm 0.5 0.25 -Date of Last Picture (Recall this 11/21/24 field) -Exudate Amt Medium Medium -Exudate Type Serosanguineous Serosanguineous -Wound Margin Distinct, Thickened & Outline Rolled Under Attached -Granulation Amt Small (1-33%) Medium (34-66%) -Granulation Quality [place] Pale,[place] -Necrosis Amt Large (67-100%) Medium (34-66%) -Necrotic Tissue Type Adherent Slough Adherent Slough -Texture (Donna-wound Skin Appearance) Assessed Assessed,Callus -Moisture (Donna-wound Skin Appearance) Assessed Assessed -Color (Donna-wound Skin Appearance) Assessed Assessed -Temperature (Donna-wound Skin No Abnormality No Abnormality Appearance) (Pt Warm) (Pt Warm) -Tenderness on Palpation (Donna-wound No No Skin Appearance) -Ulcer Cleansing Soap and Water Soap and Water -Foul Odor after Cleansing No No -Anesthetic Used 5% Lidocaine 5% Lidocaine Gel Gel Lower Limb Edema Present NA WC - Nurse 2 - General Ulcer CM Notes Start: 11/21/24 08:40 Freq: Status: Active Protocol: Activity Type Activity Date Activity User E-sign Co-sign Detail Recorded Client Recorded Date Recorded By Document 11/21/24 09:02 [id number] 11/21/24 09:09 Document 11/28/24 10:04 JF [id number] 11/28/24 10:11 JF 11/21/24 11/28/24 09:02 10:04 Wound Center Nurse 2 #4 right heel -Time 09:02 10:05 -Correct Patient Yes Yes -Correct Side, Site, Position Yes Yes -Correct Procedure Yes Yes -Procedure Performed Yes Yes -Type of Procedure Debridement Debridement -Clinical Debridement Subcutaneous Subcutaneous -Tissue Removed Subcutaneous Subcutaneous -Post Debridement (cm) - Length 1.4 0.8 -Post Debridement (cm) - Width 0.4 0.3 -Post Debridement (cm) - Depth 0.2 0.2 -Total Square (Post) (cm) 0.56 0.24 -Area of Debridement (cm) - Length 1.4 0.8 -Area of Debridement (cm) - Width 0.4 0.3 -Total Square (Area) (cm) 0.56 0.24 -Tunneling No No -Undermining/Tunneling No No -Circular Undermining No No -Wound/Ulcer Outcome Not Healed Not Healed -Ulcer Cleansing Rinsed/ Rinsed/ Irrigated with Irrigated with Saline Saline -Foul Odor after Cleansing No No -Bioengineered Tissue Yes Yes -Type of Bioengineered Tissue Epifix 18mm Epifix 18mm Disc Disc -Expiration Date 05/18/29 06/17/29 -Product Lot Number [id number] -Percent Used 100 100 -Lot number of Saline Used [id number] -Bleeding Controlled with Pressure Pressure -Treatment Response Procedure Procedure Tolerated Well Tolerated Well -Offloading Yes Yes -Type of Offloading Surgical Shoe Surgical Shoe -Debridement - Subq, 1st 20sq cm No No -Apply Skin Sub - 1st 25 sq cm - Feet 1 1 -Epifix 18mm Disc Application 1-4 3 3 #3 right lateral foot -Time 09:07 10:09 -Correct Patient Yes Yes -Correct Side, Site, Position Yes Yes -Correct Procedure Yes Yes -Procedure Performed Yes Yes -Type of Procedure Debridement Debridement -Clinical Debridement Bone Bone -Tissue Removed Non-viable Non-viable tissue tissue -Post Debridement (cm) - Length 0.6 0.6 -Post Debridement (cm) - Width 0.5 0.4 -Post Debridement (cm) - Depth 0.5 0.3 -Total Square (Post) (cm) 0.30 0.24 -Area of Debridement (cm) - Length 0.6 0.6 -Area of Debridement (cm) - Width 0.5 0.4 -Total Square (Area) (cm) 0.30 0.24 -Tunneling No No -Undermining/Tunneling No No -Circular Undermining No No -Wound/Ulcer Outcome Not Healed Not Healed -Ulcer Cleansing Rinsed/ Rinsed/ Irrigated with Irrigated with Saline Saline -Foul Odor after Cleansing No No -Bioengineered Tissue No No -Bleeding Controlled with Pressure Pressure -Treatment Response Procedure Tolerated Well -Offloading Yes Yes -Type of Offloading Surgical Shoe Surgical Shoe -Debridement - Bone, 1st 20sq cm Yes Yes Pain Scale: 0-10 Numeric Is Patient Pain Free? Yes Yes - Nurse 3 - General Ulcer D/C NN Start: 11/21/24 08:40 Freq: Status: Active Protocol: Activity Type Activity Date Activity User E-sign Co-sign Detail Recorded Client Recorded Date Recorded By Document 11/21/24 09:20 [id number] 11/21/24 09:21 Document 11/28/24 10:17 [id number] 11/28/24 10:18 11/21/24 11/28/24 09:20 10:17 Wound Care Center Nurse 3 #4 right heel -Ulcer Cleansing Not Cleansed -Foul Odor after Cleansing No -Primary Dressing Covered/Secured with Dry Gauze & Dry Gauze & Roll Gauze, Roll Gauze, Secured with Secured with Tape Tape,Other -Other Covering ABd pad #3 right lateral foot -Ulcer Cleansing Not Cleansed -Foul Odor after Cleansing No -Primary Dressing Covered/Secured with Dry Gauze & Other Roll Gauze, Secured with Tape -Other Covering used remainder of abd pad and roll gauze RLE -Lotion applied to leg before No compression wrap -Compression Wrap Donte Wrap Donte Wrap -Stockings No Pain Scale: 0-10 Numeric Is Patient Pain Free? Yes Yes - Visit Discharge Discharge Condition Stable Stable Ambulatory Status Ambulatory, Wheelchair Walker Transportation Private Auto Private Auto Medication Reconcilliation completed & No provided to patient/care provider Clinical Summary of Care Provided Yes Yes Assessment/Plan Assessment/Plan (1) Non-pressure chronic ulcer of right heel and midfoot with fat layer exposed: CODE(S): L97.412 - Non-pressure chronic ulcer of right heel and midfoot with fat layer exposed PLAN: Patient was examined and evaluated. All findings were discussed with the patient. All questions were answered to the patient's satisfaction. Excisional debridement down to and including subcutaneous tissue of the right posterior heel with a number 5 mm dermal curette without incident. Predebridement measurement was not smaller so was at callus. postdebridement measurement is 0.8 x 0.3 x 0.2 cm. EpiFix 18 mm disc graft was applied to the right heel full-thickness ulceration with 100% use. Seventh application. The graft site was free and clear of any infection. The wound/skin graft substitute was dressed with nonadherent bandage secured in place with Steri-Strips followed by bolster dressing as well as a single Tubigrip compression bandage donned to the right lower extremity. Excisional debridement down to and including subcutaneous tissue, fascia muscle and bone to the right TMA full-thickness ulceration with a number 5 mm dermal curette without incident. Predebridement measurement was callus. postdebridement measurement is 0.6 x 0.4 x 0.3 cm. Patient will continue dressing orders as discussed. He will continue to offload and ambulate as tolerated. Educated patient continue strict blood sugar control which she is understanding of. Follow-up at the wound care center with Dr. Lyons in 1 week. (2) Non-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: CODE(S): L97.514 - Non-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
[2024-12-05 08:33] VITALS: BP 110/41; PULSE 62; RESP 16; TEMP 36.3; BMI 26.4
--- NOTE | 2024-12-05 10:11 | PN.PCM_ITS ---
History of Present Illness Date of Service: 12/05/24 Chief Complaint: Ulcer right foot History of Wound: Patient presents to the wound care center today follow-up evaluation of full-thickness wounds to the right lower extremity. Patient was recently in the hospital for the past 2 weeks due to GI bleed was treated and discharge. He is following today for continued wound care to the right lower extremity. Progress of Wound: Stable full-thickness wound right lower extremity. No sign of infection. Subjective Subjective Mr. Coronel is a 73-year-old diabetic male presented wound care center today follow-up evaluation of full-thickness wounds to the right lower extremity. Patient is kept his blood sugar well-controlled. He still smokes but only smokes a few cigarettes per day. He is left the dressing clean dry intact. Denies trauma. Denies constitutional symptoms. No other pedal complaints at this time. Objective Data Objective Data Vital Signs: Vital Signs Temp Pulse Resp BP O2 Del Method 97.3 F L 62 16 110/41 L Room Air 12/05/24 08:33 12/05/24 08:33 12/05/24 08:33 12/05/24 08:33 12/05/24 08:33 Oxygen Delivery Method Room Air Weight: 86.183 kg Body Mass Index (BMI) 26.4 Physical Exam Narrative Vascular: DP and PT pulses are palpable to the right lower extremity. CFT is brisk to the flap to the right foot. Skin temperature great is warm to warm from proximal ankles to distal digits. Neurological: Light touch intact. Patient does not respond to painful stimuli. Dermatological: Right full-thickness wound to the medial transmetatarsal a mputation site measuring 0.3 x 0.3 x 0.1 cm. Right lateral transmetatarsal amputation site full-thickness wound measures 0.5 x 0.5 x 0.3 cm. Positive probe to bone. No sign of infection. Full-thickness wound to the right heel measuring 1.1 x 0.5 x 0.2 cm. Postdebridement shows some fluid drainage. Mild malodor was noted. Negative probe to bone. Excisional debridement down to and including subcutaneous tissue of the right posterior heel with a number 5 mm dermal curette without incident. Predebridement measurement was not smaller so was at callus. postdebridement measurement is 1.1 x 0.5 x 0.2 cm. Excisional debridement down to and including subcutaneous tissue, fascia muscle and bone to the right TMA full-thickness ulceration with a number 5 mm dermal curette without incident. Predebridement measurement was callus. postdebridement measurement is 0.5 x 0.5 x 0.3 cm. Excisional debridement down to including subcutaneous tissue to the right lateral TMA full-thickness ulcer with a number 5 mm dermal curette without incident. Predebridement measurement was callus. Postdebridement measurement is 0.3 x 0.3 x 0.1 cm. Musculoskeletal:. Muscle strength is 5 out of 5 in all quadrants to the right lower extremity. No pain to palpation to the full-thickness wounds to the right lower extremity. No pain with calf pressure. Debridement Note Debridement Note Debridement Free Text: Excisional debridement down to and including subcutaneous tissue of the right posterior heel with a number 5 mm dermal curette without incident. Predebridement measurement was not smaller so was at callus. postdebridement measurement is 1.1 x 0.5 x 0.2 cm. Excisional debridement down to and including subcutaneous tissue, fascia muscle and bone to the right TMA full-thickness ulceration with a number 5 mm dermal curette without incident. Predebridement measurement was callus. postdebridement measurement is 0.5 x 0.5 x 0.3 cm. Excisional debridement down to including subcutaneous tissue to the right lateral TMA full-thickness ulcer with a number 5 mm dermal curette without incident. Predebridement measurement was callus. Postdebridement measurement is 0.3 x 0.3 x 0.1 cm. Post-Debridement Measurements and Additional Note: Post-Debridement Measurements/Treatment - Nurse 1 - General Ulcer Assessment Start: 11/21/24 08:40 Freq: Status: Active Protocol: YOCASTA Activity Type Activity Date Activity User E-sign Co-sign Detail Recorded Client Recorded Date Recorded By Document 11/21/24 08:43 KW [id number] 11/21/24 08:51 KW Document 11/28/24 09:40 MT [id number] 11/28/24 09:48 MT Document 12/05/24 08:33 KW [id number] 12/05/24 08:44 KW 11/21/24 11/28/24 12/05/24 08:43 09:40 08:33 - Today's Visit Information Type of service Follow-up Visit Follow-up Visit Follow-up Visit (Physician/DEFECT REPAIRER [facility]ASS[facility] (Physician/DEFECT REPAIRER [facility]ASS[facility] (Physician/DEFECT REPAIRER [employer] ) ) ) Arrival Mode Ambulatory, Ambulatory Ambulatory, Walker Walker Accompanied by self Patient Identification Verified (Name & Yes Yes Yes ) Safety Precautions Fall Prevention Finger Stick Blood Sugar(mg/dl) (if 144 indicated): Blood Sugar Stated by Patient Height and Weight Body Mass Index (BMI) 26.4 26.4 26.4 BMI Classification Overweight Overweight Overweight Vital Signs Temperature (97.8 F-99.1 F) 96.6 F L 99.3 F H 97.3 F L Temperature Source Temporal Temporal Temporal Pulse Rate (60-100) 95 95 62 Pulse Location Monitor Monitor Monitor Respiratory Rate (12-18) 18 18 16 Respiratory rate source Observation Observation Observation Oxygen Delivery Method Room Air Room Air Room Air Blood Pressure (90/60-120/80) 119/32 L 125/58 H 110/41 L Blood Pressure Mean (mm Hg) 61 80 64 Source Monitor Monitor Monitor Position Semi-Fowlers Sitting Semi-Fowlers Blood Pressure Location Left Arm Left Arm Left Arm History Since Last Visit- (Skip if this is Patient's initial visit) Have you changed medications since your No No last visit? Any new allergies or adverse reactions No No Had a fall/change in ADL's that may No No increase risk of falls Signs or symptoms of abuse and/or No No neglect since last visit Have you been in the hospital since your No No last visit? Has dressing in place as prescribed Yes Yes Yes Has compression in place as prescribed Yes Yes Yes Has offloadiing in place as prescribed Yes Yes Yes Experienced any changes in pain level or No Yes No management Left Footwear Regular Shoe Regular Shoe Regular Shoe Right Footwear Surgical Shoe Regular Shoe Surgical Shoe with pressure with pressure relief insole relief insole Pain Scale: 0-10 Numeric Is Patient Pain Free? Yes Yes Yes - Nurse 1 - General Ulcer Measurement Start: 11/21/24 08:40 Freq: Status: Active Protocol: Activity Type Activity Date Activity User E-sign Co-sign Detail Recorded Client Recorded Date Recorded By Document 11/21/24 08:43 KW [id number] 11/21/24 08:51 KW Document 11/28/24 09:40 MT [id number] 11/28/24 09:48 MT Document 12/05/24 08:33 KW [id number] 12/05/24 08:44 KW 11/21/24 11/28/24 12/05/24 08:43 09:40 08:33 Wound Center Nurse 1 #4 right heel -Current Size (cm) - Length 2 0.1 0.5 -Current Size (cm) - Width 2.5 0.1 2.3 -Current Size (cm) - Depth 0.2 0.1 0.2 -Total Square Cm 5.0 0.01 1.15 -Date of Last Picture (Recall this 11/21/24 12/05/24 field) -Exudate Amt Medium Medium Small -Exudate Type Serosanguineous Serosanguineous Serosanguineous -Wound Margin Distinct, Flat & Intact Distinct, Outline Outline Attached Attached -Granulation Amt Small (1-33%) Medium (34-66%) Small (1-33%) -Granulation Quality [facility] -Necrosis Amt Large (67-100%) Medium (34-66%) Large (67-100%) -Necrotic Tissue Type Adherent Slough Adherent Slough Adherent Slough -Texture (Donna-wound Skin Appearance) Assessed Assessed,Callus Assessed -Moisture (Donna-wound Skin Appearance) Assessed Assessed Assessed -Color (Donna-wound Skin Appearance) Assessed Assessed Assessed -Temperature (Donna-wound Skin No Abnormality No Abnormality No Abnormality Appearance) (Pt Warm) (Pt Warm) (Pt Warm) -Tenderness on Palpation (Donna-wound No No No Skin Appearance) -Ulcer Cleansing Soap and Water Soap and Water Soap and Water -Foul Odor after Cleansing No No No -Anesthetic Used 5% Lidocaine 5% Lidocaine 5% Lidocaine Gel Gel Gel #3 right lateral foot -Current Size (cm) - Length 1 0.5 1.6 -Current Size (cm) - Width 0.5 0.5 1.4 -Current Size (cm) - Depth 0.2 0.4 0.4 -Total Square Cm 0.5 0.25 2.24 -Date of Last Picture (Recall this 11/21/24 12/05/24 field) -Exudate Amt Medium Medium Small -Exudate Type Serosanguineous Serosanguineous Serosanguineous -Wound Margin Distinct, Thickened & Distinct, Outline Rolled Under Outline Attached Attached -Granulation Amt Small (1-33%) Medium (34-66%) Large (67-100%) -Granulation Quality [facility] -Necrosis Amt Large (67-100%) Medium (34-66%) Small (1-33%) -Necrotic Tissue Type Adherent Slough Adherent Slough Adherent Slough -Texture (Donna-wound Skin Appearance) Assessed Assessed,Callus Assessed,Callus -Moisture (Donna-wound Skin Appearance) Assessed Assessed Assessed -Color (Donna-wound Skin Appearance) Assessed Assessed Assessed -Temperature (Donna-wound Skin No Abnormality No Abnormality No Abnormality Appearance) (Pt Warm) (Pt Warm) (Pt Warm) -Tenderness on Palpation (Donna-wound No No No Skin Appearance) -Ulcer Cleansing Soap and Water Soap and Water Soap and Water -Foul Odor after Cleansing No No No -Anesthetic Used 5% Lidocaine 5% Lidocaine 5% Lidocaine Gel Gel Gel Lower Limb Edema Present NA WC - Nurse 2 - General Ulcer CM Notes Start: 11/21/24 08:40 Freq: Status: Active Protocol: Activity Type Activity Date Activity User E-sign Co-sign Detail Recorded Client Recorded Date Recorded By Document 11/21/24 09:02 [id number] 11/21/24 09:09 Document 11/28/24 10:04 JF [id number] 11/28/24 10:11 Document 12/05/24 08:52 [id number] 12/05/24 09:02 11/21/24 11/28/24 12/05/24 09:02 10:04 08:52 Wound Center Nurse 2 right medial TMA ulcer -Time 09:01 -Correct Patient Yes -Correct Side, Site, Position Yes -Correct Procedure Yes -Procedure Performed Yes -Type of Procedure Debridement -Clinical Debridement Subcutaneous -Tissue Removed Subcutaneous -Post Debridement (cm) - Length 0.3 -Post Debridement (cm) - Width 0.3 -Post Debridement (cm) - Depth 0.1 -Total Square (Post) (cm) 0.09 -Area of Debridement (cm) - Length 0.3 -Area of Debridement (cm) - Width 0.3 -Total Square (Area) (cm) 0.09 -Tunneling No -Undermining/Tunneling No -Circular Undermining No -Wound/Ulcer Outcome Not Healed -Ulcer Cleansing Rinsed/ Irrigated with Saline -Foul Odor after Cleansing No -Bioengineered Tissue No -Bleeding Controlled with Pressure -Treatment Response Procedure Tolerated Well -Offloading Yes -Type of Offloading Surgical Shoe -Debridement - Subq, 1st 20sq cm No #4 right heel -Time 09:02 10:05 08:53 -Correct Patient Yes Yes Yes -Correct Side, Site, Position Yes Yes Yes -Correct Procedure Yes Yes Yes -Procedure Performed Yes Yes Yes -Type of Procedure Debridement Debridement Debridement -Clinical Debridement Subcutaneous Subcutaneous Subcutaneous -Tissue Removed Subcutaneous Subcutaneous Subcutaneous -Post Debridement (cm) - Length 1.4 0.8 1.1 -Post Debridement (cm) - Width 0.4 0.3 0.5 -Post Debridement (cm) - Depth 0.2 0.2 0.2 -Total Square (Post) (cm) 0.56 0.24 0.55 -Area of Debridement (cm) - Length 1.4 0.8 1.1 -Area of Debridement (cm) - Width 0.4 0.3 0.5 -Total Square (Area) (cm) 0.56 0.24 0.55 -Tunneling No No No -Undermining/Tunneling No No No -Circular Undermining No No No -Wound/Ulcer Outcome Not Healed Not Healed Not Healed -Ulcer Cleansing Rinsed/ Rinsed/ Rinsed/ Irrigated with Irrigated with Irrigated with Saline Saline Saline -Foul Odor after Cleansing No No No -Bioengineered Tissue Yes Yes No -Type of Bioengineered Tissue Epifix 18mm Epifix 18mm Disc Disc -Expiration Date 05/18/29 06/17/29 -Product Lot Number [id number] -Percent Used 100 100 -Lot number of Saline Used [id number] -Bleeding Controlled with Pressure Pressure Pressure -Treatment Response Procedure Procedure Procedure Tolerated Well Tolerated Well Tolerated Well -Offloading Yes Yes Yes -Type of Offloading Surgical Shoe Surgical Shoe Surgical Shoe -Debridement - Subq, 1st 20sq cm No No Yes -Apply Skin Sub - 1st 25 sq cm - Feet 1 1 -Epifix 18mm Disc Application 1-4 3 3 #3 right lateral foot -Time 09:07 10:09 09:00 -Correct Patient Yes Yes Yes -Correct Side, Site, Position Yes Yes Yes -Correct Procedure Yes Yes Yes -Procedure Performed Yes Yes Yes -Type of Procedure Debridement Debridement Debridement -Clinical Debridement Bone Bone Bone -Tissue Removed Non-viable Non-viable Non-viable tissue tissue tissue -Post Debridement (cm) - Length 0.6 0.6 0.5 -Post Debridement (cm) - Width 0.5 0.4 0.5 -Post Debridement (cm) - Depth 0.5 0.3 0.3 -Total Square (Post) (cm) 0.30 0.24 0.25 -Area of Debridement (cm) - Length 0.6 0.6 0.5 -Area of Debridement (cm) - Width 0.5 0.4 0.5 -Total Square (Area) (cm) 0.30 0.24 0.25 -Tunneling No No No -Undermining/Tunneling No No No -Circular Undermining No No No -Wound/Ulcer Outcome Not Healed Not Healed Not Healed -Ulcer Cleansing Rinsed/ Rinsed/ Rinsed/ Irrigated with Irrigated with Irrigated with Saline Saline Saline -Foul Odor after Cleansing No No No -Bioengineered Tissue No No No -Bleeding Controlled with Pressure Pressure Pressure -Treatment Response Procedure Procedure Tolerated Well Tolerated Well -Offloading Yes Yes Yes -Type of Offloading Surgical Shoe Surgical Shoe Surgical Shoe -Debridement - Bone, 1st 20sq cm Yes Yes Yes Pain Scale: 0-10 Numeric Is Patient Pain Free? Yes Yes Yes - Nurse 3 - General Ulcer D/C NN Start: 11/21/24 08:40 Freq: Status: Active Protocol: Activity Type Activity Date Activity User E-sign Co-sign Detail Recorded Client Recorded Date Recorded By Document 11/21/24 09:20 [id number] 11/21/24 09:21 Document 11/28/24 10:17 [id number] 11/28/24 10:18 Document 12/05/24 09:15 [id number] 12/05/24 09:15 11/21/24 11/28/24 12/05/24 09:20 10:17 09:15 Wound Care Center Nurse 3 right medial TMA ulcer -Primary Dressing Applied Promogran Christopher Matter -Primary Dressing Covered/Secured with Dry Gauze -Promogran Christopher Matter 1 #4 right heel -Ulcer Cleansing Not Cleansed -Foul Odor after Cleansing No -Other Dressing betadine -Primary Dressing Covered/Secured with Dry Gauze & Dry Gauze & Dry Gauze Roll Gauze, Roll Gauze, Secured with Secured with Tape Tape,Other -Other Covering ABd pad #3 right lateral foot -Ulcer Cleansing Not Cleansed -Foul Odor after Cleansing No -Other Dressing christopher -Primary Dressing Covered/Secured with Dry Gauze & Other Dry Gauze & Roll Gauze, Roll Gauze, Secured with Secured with Tape Tape -Other Covering used remainder of abd pad and roll gauze RLE -Lotion applied to leg before No compression wrap -Compression Wrap Donte Wrap Donte Wrap Donte Wrap -Stockings No -Other 2, 4in and 6 in Pain Scale: 0-10 Numeric Is Patient Pain Free? Yes Yes Yes WC - Visit Discharge Discharge Condition Stable Stable Stable Ambulatory Status Ambulatory, Wheelchair Ambulatory, Walker Walker Transportation Private Auto Private Auto Private Auto Medication Reconcilliation completed & No No provided to patient/care provider Clinical Summary of Care Provided Yes Yes Yes Assessment/Plan Assessment/Plan (1) Non-pressure chronic ulcer of right heel and midfoot with fat layer exposed: CODE(S): L97.412 - Non-pressure chronic ulcer of right heel and midfoot with fat layer exposed PLAN: Patient was examined and evaluated. All findings were discussed with the patient. All questions were answered to the patient's satisfaction. Excisional debridement down to and including subcutaneous tissue of the right posterior heel with a number 5 mm dermal curette without incident. Predebridement measurement was not smaller so was at callus. postdebridement measurement is 1.1 x 0.5 x 0.2 cm. Excisional debridement down to and including subcutaneous tissue, fascia muscle and bone to the right TMA full-thickness ulceration with a number 5 mm dermal curette without incident. Predebridement measurement was callus. postdebridement measurement is 0.5 x 0.5 x 0.3 cm. Excisional debridement down to including subcutaneous tissue to the right lateral TMA full-thickness ulcer with a number 5 mm dermal curette without incident. Predebridement measurement was callus. Postdebridement measurement is 0.3 x 0.3 x 0.1 cm. The left lower extremities were cleaned and patted dry. There is some fluid collection to the right heel which was cultured and sent off for microbiology culture and sensitivity. The patient will be placed on doxycycline 100 mg twice daily for the next 2 weeks. Will adjust antibiotics as needed. The heel was dressed with Betadine paint, the medial lateral TMA full-thickness wounds were dressed with moist Christopher followed by dry sterile dressing and light compression wrap to the right lower extremity. Educated the patient to only ambulate in surgical shoe which she is understanding of. Educated the patient to continue smoking cessation which she will try. We will begin reapplication of amniotic skin graft substitute at next follow-up. Follow-up at the wound care center with Dr. Lyons in 1 week. (2) Non-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: CODE(S): L97.514 - Non-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 (3) Non-pressure chronic ulcer of other part of right foot with fat layer exposed: CODE(S): L97.512 - Non-pressure chronic ulcer of other part of right foot with fat layer exposed
--- NOTE | 2024-12-06 10:18 | WC ---
PHOTO 12/05/24 RIGHT TMA
--- NOTE | 2024-12-06 10:22 | WC ---
PHOTO 12/05/24 RIGHT HEEL
[2024-12-12 08:12] VITALS: BP 122/53; PULSE 107; RESP 18; TEMP 36.4; BMI 26.4
--- NOTE | 2024-12-12 10:21 | PCM.WC.PN ---
History of Present Illness Date of Service: 12/12/24 Chief Complaint: Ulcer right foot History of Wound: Stable full-thickness wound right foot slow to heal Progress of Wound: Stable full-thickness wound right lower extremity. No sign of infection. Subjective Subjective Mr. Coronel is a 74-year-old diabetic male presenting to wound care center today follow-up evaluation of full-thickness wound left lower extremity. Patient has not picked up his antibiotic at this time. He is getting it today. His blood sugars been well-controlled. He continues to smoke even though he knows he should quit. He denies trauma. Denies constitutional symptoms. No other pedal complaints at this time. Objective Data Objective Data Vital Signs: Vital Signs Temp Pulse Resp BP O2 Del Method 97.5 F L 107 H 18 122/53 H Room Air 12/12/24 08:12 12/12/24 08:12 12/12/24 08:12 12/12/24 08:12 12/12/24 08:12 Oxygen Delivery Method Room Air Weight: 86.183 kg Body Mass Index (BMI) 26.4 Lab / Micro Data Micro: Microbiology 12/05/24 09:00 Ulcer, Decubitus - Right Foot Gram Stain - Final 12/05/24 09:00 Ulcer, Decubitus - Right Foot Wound Culture - Final Corynebacterium striatum Meth. resistant Staph. aureus Enterococcus faecalis 12/05/24 09:00 Ulcer, Decubitus - Right Foot Anaerobic Culture - Final Anaerobic cocci Physical Exam Narrative Vascular: DP and PT pulses are palpable to the right lower extremity. CFT is brisk to the flap to the right foot. Skin temperature great is warm to warm from proximal ankles to distal digits. Neurological: Light touch intact. Patient does not respond to painful stimuli. Dermatological: Right full-thickness wound to the medial transmetatarsal amputation site is healed. Right lateral transmetatarsal amputation site full-thickness wound measures 0.3 x 0.5 x 1.0 cm. Positive probe to bone. No sign of infection. Full-thickness wound to the right heel measuring 2.0 x 0.5 x 0.3 cm. Negative probe to bone. No malodor. Excisional debridement down to and including subcutaneous tissue of the right posterior heel with a number 5 mm dermal curette without incident. Predebridement measurement was not smaller so was at callus. postdebridement measurement is 2.0 x 0.5 x 0.3 cm. Excisional debridement down to including subcutaneous tissue to the right lateral TMA full-thickness ulcer with a number 5 mm dermal curette without incident. Predebridement measurement was callus. Postdebridement measurement is 0.3 x 0.5 x 1.0 cm. Musculoskeletal:. Muscle strength is 5 out of 5 in all quadrants to the right lower extremity. No pain to palpation to the full-thickness wounds to the right lower extremity. No pain with calf pressure. Debridement Note Debridement Note Debridement Free Text: Excisional debridement down to and including subcutaneous tissue of the right posterior heel with a number 5 mm dermal curette without incident. Predebridement measurement was not smaller so was at callus. postdebridement measurement is 2.0 x 0.5 x 0.3 cm. Excisional debridement down to including subcutaneous tissue to the right lateral TMA full-thickness ulcer with a number 5 mm dermal curette without incident. Predebridement measurement was callus. Postdebridement measurement is 0.3 x 0.5 x 1.0 cm. Post-Debridement Measurements and Additional Note: Post-Debridement Measurements/Treatment - Nurse 1 - General Ulcer Assessment Start: 11/21/24 08:40 Freq: Status: Active Protocol: YOCASTA Activity Type Activity Date Activity User E-sign Co-sign Detail Recorded Client Recorded Date Recorded By Document 11/21/24 08:43 KW [id number] 11/21/24 08:51 KW Document 11/28/24 09:40 IN [id number] 11/28/24 09:48 IN Document 12/05/24 08:33 KW [id number] 12/05/24 08:44 KW Document 12/12/24 08:12 [id number] 12/12/24 08:18 11/21/24 11/28/24 12/05/24 08:43 09:40 08:33 - Today's Visit Information Type of service Follow-up Visit Follow-up Visit Follow-up Visit (Physician/CHIEF CREW SCHEDULER (Physician/CHIEF CREW SCHEDULER (Physician/CHIEF CREW SCHEDULER ) ) ) Arrival Mode Ambulatory, Ambulatory Ambulatory, Walker Walker Transfer Assistance Accompanied by self Patient Identification Verified (Name & Yes Yes Yes ) Safety Precautions Fall Prevention Finger Stick Blood Sugar(mg/dl) (if 144 indicated): Blood Sugar Stated by Patient Height and Weight Body Mass Index (BMI) 26.4 26.4 26.4 BMI Classification Overweight Overweight Overweight Vital Signs Temperature (97.8 F-99.1 F) 96.6 F L 99.3 F H 97.3 F L Temperature Source Temporal Temporal Temporal Pulse Rate (60-100) 95 95 62 Pulse Location Monitor Monitor Monitor Respiratory Rate (12-18) 18 18 16 Respiratory rate source Observation Observation Observation Oxygen Delivery Method Room Air Room Air Room Air Blood Pressure (90/60-120/80) 119/32 L 125/58 H 110/41 L Blood Pressure Mean (mm Hg) 61 80 64 Source Monitor Monitor Monitor Position Semi-Fowlers Sitting Semi-Fowlers Blood Pressure Location Left Arm Left Arm Left Arm History Since Last Visit- (Skip if this is Patient's initial visit) Have you changed medications since your No No last visit? Any new allergies or adverse reactions No No Had a fall/change in ADL's that may No No increase risk of falls Signs or symptoms of abuse and/or No No neglect since last visit Have you been in the hospital since your No No last visit? Has dressing in place as prescribed Yes Yes Yes Has compression in place as prescribed Yes Yes Yes Has offloadiing in place as prescribed Yes Yes Yes Experienced any changes in pain level or No Yes No management Left Footwear Regular Shoe Regular Shoe Regular Shoe Right Footwear Surgical Shoe Regular Shoe Surgical Shoe with pressure with pressure relief insole relief insole Pain Scale: 0-10 Numeric Is Patient Pain Free? Yes Yes Yes 12/12/24 08:12 WC - Today's Visit Information Type of service Follow-up Visit (Physician/CHIEF CREW SCHEDULER ) Arrival Mode Ambulatory, Walker Transfer Assistance None Accompanied by Patient Identification Verified (Name & Yes ) Safety Precautions Finger Stick Blood Sugar(mg/dl) (if indicated): Blood Sugar Height and Weight Body Mass Index (BMI) 26.4 BMI Classification Overweight Vital Signs Temperature (97.8 F-99.1 F) 97.5 F L Temperature Source Temporal Pulse Rate (60-100) 107 H Pulse Location Monitor Respiratory Rate (12-18) 18 Respiratory rate source Observation Oxygen Delivery Method Room Air Blood Pressure (90/60-120/80) 122/53 H Blood Pressure Mean (mm Hg) 76 Source Monitor Position Sitting Blood Pressure Location Right Arm History Since Last Visit- (Skip if this is Patient's initial visit) Have you changed medications since your No last visit? Any new allergies or adverse reactions No Had a fall/change in ADL's that may No increase risk of falls Signs or symptoms of abuse and/or No neglect since last visit Have you been in the hospital since your No last visit? Has dressing in place as prescribed Yes Has compression in place as prescribed Yes Has offloadiing in place as prescribed Yes Experienced any changes in pain level or No management Left Footwear Regular Shoe Right Footwear Surgical Shoe with pressure relief insole Pain Scale: 0-10 Numeric Is Patient Pain Free? Yes WC - Nurse 1 - General Ulcer Measurement Start: 11/21/24 08:40 Freq: Status: Active Protocol: Activity Type Activity Date Activity User E-sign Co-sign Detail Recorded Client Recorded Date Recorded By Document 11/21/24 08:43 KW [id number] 11/21/24 08:51 KW Document 11/28/24 09:40 MT [id number] 11/28/24 09:48 MT Document 12/05/24 08:33 KW [id number] 12/05/24 08:44 KW Document 12/12/24 08:12 [id number] 12/12/24 08:18 11/21/24 11/28/24 12/05/24 08:43 09:40 08:33 Wound Center Nurse 1 right medial TMA ulcer -Current Size (cm) - Length -Current Size (cm) - Width -Current Size (cm) - Depth -Total Square Cm -Photo Taken -Epithelialization -Tunneling -Undermining/Tunneling -Circular Undermining -Exudate Amt -Wound Margin -Texture (Donna-wound Skin Appearance) -Moisture (Donna-wound Skin Appearance) -Color (Donna-wound Skin Appearance) -Temperature (Donna-wound Skin Appearance) -Tenderness on Palpation (Donna-wound Skin Appearance) -Foul Odor after Cleansing -Anesthetic Used #4 right heel -Combined with other wound -Current Size (cm) - Length 2 0.1 0.5 -Current Size (cm) - Width 2.5 0.1 2.3 -Current Size (cm) - Depth 0.2 0.1 0.2 -Total Square Cm 5.0 0.01 1.15 -Date of Last Picture (Recall this 11/21/24 12/05/24 field) -Photo Taken -Epithelialization -Tunneling -Undermining/Tunneling -Circular Undermining -Exudate Amt Medium Medium Small -Exudate Type Serosanguineous Serosanguineous Serosanguineous -Wound Margin Distinct, Flat & Intact Distinct, Outline Outline Attached Attached -Granulation Amt Small (1-33%) Medium (34-66%) Small (1-33%) -Granulation Quality [place] -Necrosis Amt Large (67-100%) Medium (34-66%) Large (67-100%) -Necrotic Tissue Type Adherent Slough Adherent Slough Adherent Slough -Texture (Donna-wound Skin Appearance) Assessed Assessed,Callus Assessed -Moisture (Donna-wound Skin Appearance) Assessed Assessed Assessed -Color (Donna-wound Skin Appearance) Assessed Assessed Assessed -Temperature (Donna-wound Skin No Abnormality No Abnormality No Abnormality Appearance) (Pt Warm) (Pt Warm) (Pt Warm) -Tenderness on Palpation (Donna-wound No No No Skin Appearance) -Ulcer Cleansing Soap and Water Soap and Water Soap and Water -Foul Odor after Cleansing No No No -Anesthetic Used 5% Lidocaine 5% Lidocaine 5% Lidocaine Gel Gel Gel #3 right lateral foot -Combined with other wound -Current Size (cm) - Length 1 0.5 1.6 -Current Size (cm) - Width 0.5 0.5 1.4 -Current Size (cm) - Depth 0.2 0.4 0.4 -Total Square Cm 0.5 0.25 2.24 -Date of Last Picture (Recall this 11/21/24 12/05/24 field) -Photo Taken -Epithelialization -Tunneling -Undermining/Tunneling -Circular Undermining -Exudate Amt Medium Medium Small -Exudate Type Serosanguineous Serosanguineous Serosanguineous -Wound Margin Distinct, Thickened & Distinct, Outline Rolled Under Outline Attached Attached -Granulation Amt Small (1-33%) Medium (34-66%) Large (67-100%) -Granulation Quality [place] -Slough/Fibrin -Necrosis Amt Large (67-100%) Medium (34-66%) Small (1-33%) -Necrotic Tissue Type Adherent Slough Adherent Slough Adherent Slough -Texture (Donna-wound Skin Appearance) Assessed Assessed,Callus Assessed,Callus -Moisture (Donna-wound Skin Appearance) Assessed Assessed Assessed -Color (Donna-wound Skin Appearance) Assessed Assessed Assessed -Temperature (Donna-wound Skin No Abnormality No Abnormality No Abnormality Appearance) (Pt Warm) (Pt Warm) (Pt Warm) -Tenderness on Palpation (Donna-wound No No No Skin Appearance) -Ulcer Cleansing Soap and Water Soap and Water Soap and Water -Foul Odor after Cleansing No No No -Anesthetic Used 5% Lidocaine 5% Lidocaine 5% Lidocaine Gel Gel Gel Lower Limb Edema Present NA 12/12/24 08:12 Wound Center Nurse 1 right medial TMA ulcer -Current Size (cm) - Length 0.4 -Current Size (cm) - Width 0.6 -Current Size (cm) - Depth 0.1 -Total Square Cm 0.24 -Photo Taken No -Epithelialization Small 1-33% -Tunneling No -Undermining/Tunneling No -Circular Undermining No -Exudate Amt None Present -Wound Margin Distinct, Outline Attached -Texture (Donna-wound Skin Appearance) Assessed -Moisture (Donna-wound Skin Appearance) Assessed -Color (Donna-wound Skin Appearance) Assessed -Temperature (Donna-wound Skin No Abnormality Appearance) (Pt Warm) -Tenderness on Palpation (Donna-wound No Skin Appearance) -Foul Odor after Cleansing No -Anesthetic Used 5% Lidocaine Gel #4 right heel -Combined with other wound No -Current Size (cm) - Length 0.6 -Current Size (cm) - Width 2.0 -Current Size (cm) - Depth 0.1 -Total Square Cm 1.20 -Date of Last Picture (Recall this field) -Photo Taken No -Epithelialization None Present -Tunneling No -Undermining/Tunneling No -Circular Undermining No -Exudate Amt None Present -Exudate Type -Wound Margin Distinct, Outline Attached -Granulation Amt None Present (0 %) -Granulation Quality -Necrosis Amt -Necrotic Tissue Type -Texture (Donna-wound Skin Appearance) Assessed -Moisture (Donna-wound Skin Appearance) Assessed -Color (Donna-wound Skin Appearance) Assessed -Temperature (Donna-wound Skin No Abnormality Appearance) (Pt Warm) -Tenderness on Palpation (Donna-wound Skin Appearance) -Ulcer Cleansing Rinsed/ Irrigated with Saline -Foul Odor after Cleansing No -Anesthetic Used 5% Lidocaine Gel #3 right lateral foot -Combined with other wound No -Current Size (cm) - Length 1.7 -Current Size (cm) - Width 2.0 -Current Size (cm) - Depth 0.1 -Total Square Cm 3.40 -Date of Last Picture (Recall this field) -Photo Taken No -Epithelialization Small 1-33% -Tunneling No -Undermining/Tunneling No -Circular Undermining No -Exudate Amt Small -Exudate Type Yellow/Green -Wound Margin Distinct, Outline Attached -Granulation Amt Small (1-33%) -Granulation Quality [place] -Slough/Fibrin No -Necrosis Amt Medium (34-66%) -Necrotic Tissue Type Adherent Slough -Texture ([place]-wound Skin Appearance) Assessed -Moisture (Donna-wound Skin Appearance) Assessed -Color (Donna-wound Skin Appearance) Assessed -Temperature (Donna-wound Skin No Abnormality Appearance) (Pt Warm) -Tenderness on Palpation (Donna-wound No Skin Appearance) -Ulcer Cleansing Soap and Water -Foul Odor after Cleansing No -Anesthetic Used 5% Lidocaine Gel Lower Limb Edema Present WC - Nurse 2 - General Ulcer CM Notes Start: 11/21/24 08:40 Freq: Status: Active Protocol: Activity Type Activity Date Activity User E-sign Co-sign Detail Recorded Client Recorded Date Recorded By Document 11/21/24 09:02 [id number] 11/21/24 09:09 Document 11/28/24 10:04 [id number] 11/28/24 10:11 Document 12/05/24 08:52 [id number] 12/05/24 09:02 Document 12/12/24 08:39 JF [id number] 12/12/24 08:45 11/21/24 11/28/24 12/05/24 09:02 10:04 08:52 Wound Center Nurse 2 right medial TMA ulcer -Time 09:01 -Correct Patient Yes -Correct Side, Site, Position Yes -Correct Procedure Yes -Procedure Performed Yes -Type of Procedure Debridement -Clinical Debridement Subcutaneous -Tissue Removed Subcutaneous -Post Debridement (cm) - Length 0.3 -Post Debridement (cm) - Width 0.3 -Post Debridement (cm) - Depth 0.1 -Total Square (Post) (cm) 0.09 -Area of Debridement (cm) - Length 0.3 -Area of Debridement (cm) - Width 0.3 -Total Square (Area) (cm) 0.09 -Tunneling No -Undermining/Tunneling No -Circular Undermining No -Wound/Ulcer Outcome Not Healed -Ulcer Cleansing Rinsed/ Irrigated with Saline -Foul Odor after Cleansing No -Bioengineered Tissue No -Bleeding Controlled with Pressure -Treatment Response Procedure Tolerated Well -Offloading Yes -Type of Offloading Surgical Shoe -Debridement - Subq, 1st 20sq cm No #4 right heel -Time 09:02 10:05 08:53 -Correct Patient Yes Yes Yes -Correct Side, Site, Position Yes Yes Yes -Correct Procedure Yes Yes Yes -Procedure Performed Yes Yes Yes -Type of Procedure Debridement Debridement Debridement -Clinical Debridement Subcutaneous Subcutaneous Subcutaneous -Tissue Removed Subcutaneous Subcutaneous Subcutaneous -Post Debridement (cm) - Length 1.4 0.8 1.1 -Post Debridement (cm) - Width 0.4 0.3 0.5 -Post Debridement (cm) - Depth 0.2 0.2 0.2 -Total Square (Post) (cm) 0.56 0.24 0.55 -Area of Debridement (cm) - Length 1.4 0.8 1.1 -Area of Debridement (cm) - Width 0.4 0.3 0.5 -Total Square (Area) (cm) 0.56 0.24 0.55 -Tunneling No No No -Undermining/Tunneling No No No -Circular Undermining No No No -Wound/Ulcer Outcome Not Healed Not Healed Not Healed -Ulcer Cleansing Rinsed/ Rinsed/ Rinsed/ Irrigated with Irrigated with Irrigated with Saline Saline Saline -Foul Odor after Cleansing No No No -Bioengineered Tissue Yes Yes No -Type of Bioengineered Tissue Epifix 18mm Epifix 18mm Disc Disc -Expiration Date 05/18/29 06/17/29 -Product Lot Number [id number] -Percent Used 100 100 -Lot number of Saline Used [id number] -Bleeding Controlled with Pressure Pressure Pressure -Treatment Response Procedure Procedure Procedure Tolerated Well Tolerated Well Tolerated Well -Offloading Yes Yes Yes -Type of Offloading Surgical Shoe Surgical Shoe Surgical Shoe -Debridement - Subq, 1st 20sq cm No No Yes -Apply Skin Sub - 1st 25 sq cm - Feet 1 1 -Epifix 18mm Disc Application 1-4 3 3 #3 right lateral foot -Time 09:07 10:09 09:00 -Correct Patient Yes Yes Yes -Correct Side, Site, Position Yes Yes Yes -Correct Procedure Yes Yes Yes -Procedure Performed Yes Yes Yes -Type of Procedure Debridement Debridement Debridement -Clinical Debridement Bone Bone Bone -Tissue Removed Non-viable Non-viable Non-viable tissue tissue tissue -Post Debridement (cm) - Length 0.6 0.6 0.5 -Post Debridement (cm) - Width 0.5 0.4 0.5 -Post Debridement (cm) - Depth 0.5 0.3 0.3 -Total Square (Post) (cm) 0.30 0.24 0.25 -Area of Debridement (cm) - Length 0.6 0.6 0.5 -Area of Debridement (cm) - Width 0.5 0.4 0.5 -Total Square (Area) (cm) 0.30 0.24 0.25 -Tunneling No No No -Undermining/Tunneling No No No -Circular Undermining No No No -Wound/Ulcer Outcome Not Healed Not Healed Not Healed -Ulcer Cleansing Rinsed/ Rinsed/ Rinsed/ Irrigated with Irrigated with Irrigated with Saline Saline Saline -Foul Odor after Cleansing No No No -Bioengineered Tissue No No No -Bleeding Controlled with Pressure Pressure Pressure -Treatment Response Procedure Procedure Tolerated Well Tolerated Well -Offloading Yes Yes Yes -Type of Offloading Surgical Shoe Surgical Shoe Surgical Shoe -Debridement - Bone, 1st 20sq cm Yes Yes Yes Pain Scale: 0-10 Numeric Is Patient Pain Free? Yes Yes Yes 12/12/24 08:39 Wound Center Nurse 2 right medial TMA ulcer -Time 08:39 -Correct Patient Yes -Correct Side, Site, Position No -Correct Procedure No -Procedure Performed No -Type of Procedure -Clinical Debridement -Tissue Removed -Post Debridement (cm) - Length -Post Debridement (cm) - Width -Post Debridement (cm) - Depth -Total Square (Post) (cm) -Area of Debridement (cm) - Length -Area of Debridement (cm) - Width -Total Square (Area) (cm) -Tunneling No -Undermining/Tunneling No -Circular Undermining No -Wound/Ulcer Outcome Not Healed -Ulcer Cleansing -Foul Odor after Cleansing -Bioengineered Tissue -Bleeding Controlled with Pressure -Treatment Response Procedure Tolerated Well -Offloading Yes -Type of Offloading Surgical Shoe -Debridement - Subq, 1st 20sq cm No #4 right heel -Time 08:40 -Correct Patient Yes -Correct Side, Site, Position Yes -Correct Procedure Yes -Procedure Performed Yes -Type of Procedure Debridement -Clinical Debridement Subcutaneous -Tissue Removed Subcutaneous -Post Debridement (cm) - Length 2.0 -Post Debridement (cm) - Width 0.5 -Post Debridement (cm) - Depth 0.3 -Total Square (Post) (cm) 1.00 -Area of Debridement (cm) - Length 2.0 -Area of Debridement (cm) - Width 0.5 -Total Square (Area) (cm) 1.00 -Tunneling No -Undermining/Tunneling No -Circular Undermining No -Wound/Ulcer Outcome Not Healed -Ulcer Cleansing Rinsed/ Irrigated with Saline -Foul Odor after Cleansing No -Bioengineered Tissue -Type of Bioengineered Tissue -Expiration Date -Product Lot Number -Percent Used -Lot number of Saline Used -Bleeding Controlled with Pressure -Treatment Response Procedure Tolerated Well -Offloading Yes -Type of Offloading Surgical Shoe -Debridement - Subq, 1st 20sq cm Yes -Apply Skin Sub - 1st 25 sq cm - Feet -Epifix 18mm Disc Application 1-4 #3 right lateral foot -Time 08:41 -Correct Patient Yes -Correct Side, Site, Position Yes -Correct Procedure Yes -Procedure Performed Yes -Type of Procedure Debridement -Clinical Debridement Bone -Tissue Removed Non-viable tissue -Post Debridement (cm) - Length 0.7 -Post Debridement (cm) - Width 0.5 -Post Debridement (cm) - Depth 1.0 -Total Square (Post) (cm) 0.35 -Area of Debridement (cm) - Length 0.7 -Area of Debridement (cm) - Width 0.5 -Total Square (Area) (cm) 0.35 -Tunneling No -Undermining/Tunneling No -Circular Undermining No -Wound/Ulcer Outcome Not Healed -Ulcer Cleansing Rinsed/ Irrigated with Saline -Foul Odor after Cleansing No -Bioengineered Tissue No -Bleeding Controlled with Pressure -Treatment Response Procedure Tolerated Well -Offloading Yes -Type of Offloading Surgical Shoe -Debridement - Bone, 1st 20sq cm Yes Pain Scale: 0-10 Numeric Is Patient Pain Free? Yes WC - Nurse 3 - General Ulcer D/C NN Start: 11/21/24 08:40 Freq: Status: Active Protocol: Activity Type Activity Date Activity User E-sign Co-sign Detail Recorded Client Recorded Date Recorded By Document 11/21/24 09:20 KW [id number] 11/21/24 09:21 KW Document 11/28/24 10:17 [id number] 11/28/24 10:18 Document 12/05/24 09:15 KW [id number] 12/05/24 09:15 KW Document 12/12/24 08:57 IN [id number] 12/12/24 09:03 IN 11/21/24 11/28/24 12/05/24 09:20 10:17 09:15 Wound Care Center Nurse 3 right medial TMA ulcer -Primary Dressing Applied Promogran Christopher Matter -Primary Dressing Covered/Secured with Dry Gauze -Promogran Christopher Matter 1 #4 right heel -Ulcer Cleansing Not Cleansed -Foul Odor after Cleansing No -Negative Pressure Wound Therapy -Other Dressing betadine -Primary Dressing Covered/Secured with Dry Gauze & Dry Gauze & Dry Gauze Roll Gauze, Roll Gauze, Secured with Secured with Tape Tape,Other -Other Covering ABd pad #3 right lateral foot -Ulcer Cleansing Not Cleansed -Foul Odor after Cleansing No -Negative Pressure Wound Therapy -Primary Dressing Applied -Other Dressing christopher -Primary Dressing Covered/Secured with Dry Gauze & Other Dry Gauze & Roll Gauze, Roll Gauze, Secured with Secured with Tape Tape -Other Covering used remainder of abd pad and roll gauze -Promogran Christopher Matter RLE -Lotion applied to leg before No compression wrap -Compression Wrap Donte Wrap Donte Wrap Donte Wrap -Stockings No -Other 2, 4in and 6 in Pain Scale: 0-10 Numeric Is Patient Pain Free? Yes Yes Yes - Visit Discharge Discharge Condition Stable Stable Stable Ambulatory Status Ambulatory, Wheelchair Ambulatory, Walker Walker Transportation Private Auto Private Auto Private Auto Medication Reconcilliation completed & No No provided to patient/care provider Clinical Summary of Care Provided Yes Yes Yes Notes: 12/12/24 08:57 Wound Care Center Nurse 3 right medial TMA ulcer -Primary Dressing Applied -Primary Dressing Covered/Secured with -Promogran Christopher Matter #4 right heel -Ulcer Cleansing -Foul Odor after Cleansing No -Negative Pressure Wound Therapy N/A -Other Dressing betadine -Primary Dressing Covered/Secured with Dry Gauze, Secured with Tape -Other Covering #3 right lateral foot -Ulcer Cleansing -Foul Odor after Cleansing No -Negative Pressure Wound Therapy N/A -Primary Dressing Applied Promogran Christopher Matter -Other Dressing -Primary Dressing Covered/Secured with Dry Gauze, Secured with Tape -Other Covering -Promogran Christopher Matter 1 RLE -Lotion applied to leg before compression wrap -Compression Wrap Donte Wrap -Stockings -Other Pain Scale: 0-10 Numeric Is Patient Pain Free? Yes WC - Visit Discharge Discharge Condition Stable Ambulatory Status Ambulatory Transportation Private Auto Medication Reconcilliation completed & No provided to patient/care provider Clinical Summary of Care Provided Yes Notes: antibiotics prescribed Assessment/Plan Assessment/Plan (1) Non-pressure chronic ulcer of right heel and midfoot with fat layer exposed: CODE(S): L97.412 - Non-pressure chronic ulcer of right heel and midfoot with fat layer exposed PLAN: Patient was examined and evaluated. All findings were discussed with the patient. All questions were answered to the patient's satisfaction. Excisional debridement down to and including subcutaneous tissue of the right posterior heel with a number 5 mm dermal curette without incident. Predebridement measurement was not smaller so was at callus. postdebridement measurement is 2.0 x 0.5 x 0.3 cm. Excisional debridement down to including subcutaneous tissue to the right lateral TMA full-thickness ulcer with a number 5 mm dermal curette without incident. Predebridement measurement was callus. Postdebridement measurement is 0.3 x 0.5 x 1.0 cm. The right lower extremities were cleaned and patted dry. Christopher was applied to the full-thickness wound to the TMA and Betadine paint to the heel area. Dry sterile dressing and compression wrap was also applied. 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 Educated patient continue strict blood sugar control. Follow-up at the wound care center with Dr. Lyons in 1 week. (2) Non-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: CODE(S): L97.514 - Non-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 (3) Non-pressure chronic ulcer of other part of right foot with fat layer exposed: CODE(S): L97.512 - Non-pressure chronic ulcer of other part of right foot with fat layer exposed
== END 2024-12-15 23:59 | disposition home or self-care (01) ==
LOC: WC 08:00
PROVIDERS: PCP Family Medicine Geriatric Medicine; Referring Provider Podiatrist Foot & Ankle Surgery; Visit Provider Podiatrist Foot & Ankle Surgery
DX: L97.412 Non-pressure chronic ulcer of right heel and midfoot with fat layer exposed (principal); L97.514 Non-pressure chronic ulcer of other part of right foot with necrosis of bone; L97.512 Non-pressure chronic ulcer of other part of right foot with fat layer exposed; F17.210 Nicotine dependence, cigarettes, uncomplicated; Z89.429 Acquired absence of other toe(s), unspecified side
CPT/HCPCS: 11042; 11044; 15275; 87070; 87075; 87077; 87186; 87205; Q4186

== ENCOUNTER 2025-01-09 08:45 | Outpatient (RCR) | payer MEDICARE, MEDICAID, SELFPAY ==
[2024-12-16 00:29] VITALS: BP 122/53; PULSE 107; RESP 18; TEMP 36.4; BMI 26.4
[2024-12-19 08:44] VITALS: BP 147/71; PULSE 94; RESP 18; TEMP 36.6; BMI 26.4
--- NOTE | 2024-12-19 09:12 | PN.PCM_ITS ---
History of Present Illness Date of Service: 12/19/24 Chief Complaint: Ulcer right foot History of Wound: Stable full-thickness wound right foot slow to heal Progress of Wound: Stable healing wounds to right lower extremity. Subjective Subjective Mr. Coronel is a 74-year-old diabetic male presenting to wound care center today follow-up evaluation of full-thickness wounds to the TMA of the heel of the right lower extremity. Patient has getting home health care for dressing changes. He is taking his 2 antibiotics, doxycycline and Augmentin as prescribed and has no complications from them. His blood sugars well- controlled. He still smokes on a regular basis even though he has been told multiple times to quit and or slow down. He denies trauma. Denies constitutional symptoms. Other pedal complaints at this time. Objective Data Objective Data Vital Signs: Vital Signs Temp Pulse Resp BP O2 Del Method 98 F 94 18 147/71 H Room Air 12/19/24 08:44 12/19/24 08:44 12/19/24 08:44 12/19/24 08:44 12/19/24 08:44 Oxygen Delivery Method Room Air Weight: 86.183 kg Body Mass Index (BMI) 26.4 Debridement Note Debridement Note Post-Debridement Measurements and Additional Note: Post-Debridement Measurements/Treatment - Nurse 1 - General Ulcer Assessment Start: 12/19/24 08:43 Freq: Status: Active Protocol: YOCASTA Activity Type Activity Date Activity User E-sign Co-sign Detail Recorded Client Recorded Date Recorded By Document 12/19/24 08:44 [place] [id number] 12/19/24 08:50 [place] 12/19/24 08:44 - Today's Visit Information Type of service Follow-up Visit (Physician/RESPIRATORY CARE PROGRAM DIRECTOR ) Arrival Mode Ambulatory Accompanied by self Patient Identification Verified (Name & Yes ) Safety Precautions Fall Prevention Height and Weight Body Mass Index (BMI) 26.4 BMI Classification Overweight Vital Signs Temperature (97.8 F-99.1 F) 98 F Temperature Source Temporal Pulse Rate (60-100) 94 Pulse Location Monitor Respiratory Rate (12-18) 18 Respiratory rate source Observation Oxygen Delivery Method Room Air Blood Pressure (90/60-120/80) 147/71 H Blood Pressure Mean (mm Hg) 96 Source Monitor Position Sitting Blood Pressure Location Right Arm History Since Last Visit- (Skip if this is Patient's initial visit) Has dressing in place as prescribed Yes Has compression in place as prescribed Yes Has offloadiing in place as prescribed Yes Experienced any changes in pain level or Yes management Left Footwear Regular Shoe Right Footwear Diabetic Shoe Pain Scale: 0-10 Numeric Is Patient Pain Free? Yes WC - Nurse 1 - General Ulcer Measurement Start: 12/19/24 08:43 Freq: Status: Active Protocol: Activity Type Activity Date Activity User E-sign Co-sign Detail Recorded Client Recorded Date Recorded By Document 12/19/24 08:44 [place] [id number] 12/19/24 08:50 [place] 12/19/24 08:44 Wound Center Nurse 1 #3 right lateral foot -Current Size (cm) - Length 0.1 -Current Size (cm) - Width 0.1 -Current Size (cm) - Depth 0.1 -Total Square Cm 0.01 -Photo Taken No -Tunneling No -Undermining/Tunneling No -Circular Undermining No -Exudate Amt None Present -Wound Margin Flat & Intact -Granulation Amt Large (67-100%) -Granulation Quality Pale,[place] -Slough/Fibrin No -Texture (Donna-wound Skin Appearance) Assessed -Moisture (Donna-wound Skin Appearance) Assessed -Color (Donna-wound Skin Appearance) Assessed -Temperature (Donna-wound Skin No Abnormality Appearance) (Pt Warm) -Tenderness on Palpation (Donna-wound No Skin Appearance) -Ulcer Cleansing Soap and Water -Foul Odor after Cleansing No -Anesthetic Used 5% Lidocaine Gel right medial TMA ulcer -Current Size (cm) - Length 0.1 -Current Size (cm) - Width 0.1 -Current Size (cm) - Depth 0.1 -Total Square Cm 0.01 -Photo Taken Yes -Epithelialization Large 67-100% -Tunneling No -Undermining/Tunneling No -Circular Undermining No -Exudate Amt None Present -Wound Margin Flat & Intact -Granulation Amt Large (67-100%) -Granulation Quality Pale,[place] -Slough/Fibrin No -Texture (Donna-wound Skin Appearance) Assessed -Moisture (Donna-wound Skin Appearance) Assessed -Color (Donna-wound Skin Appearance) Assessed -Temperature (Donna-wound Skin No Abnormality Appearance) (Pt Warm) -Tenderness on Palpation (Donna-wound No Skin Appearance) -Ulcer Cleansing Soap and Water -Foul Odor after Cleansing No -Anesthetic Used 5% Lidocaine Gel #4 right heel -Current Size (cm) - Length 2.0 -Current Size (cm) - Width 2.7 -Current Size (cm) - Depth 0.2 -Total Square Cm 5.40 -Photo Taken No -Tunneling No -Undermining/Tunneling No -Circular Undermining No -Exudate Amt None Present -Wound Margin Flat & Intact -Granulation Amt Large (67-100%) -Granulation Quality Pale,[place] -Slough/Fibrin No -Texture (Donna-wound Skin Appearance) Assessed -Moisture (Donna-wound Skin Appearance) Assessed -Color (Donna-wound Skin Appearance) Assessed -Temperature (Donna-wound Skin No Abnormality Appearance) (Pt Warm) -Tenderness on Palpation (Donna-wound No Skin Appearance) -Ulcer Cleansing Soap and Water -Foul Odor after Cleansing No -Anesthetic Used 5% Lidocaine Gel Lower Limb Edema Present NA WC - Nurse 2 - General Ulcer CM Notes Start: 12/19/24 08:43 Freq: Status: Active Protocol: Activity Type Activity Date Activity User E-sign Co-sign Detail Recorded Client Recorded Date Recorded By Document 12/19/24 08:55 [id number] 12/19/24 09:06 12/19/24 08:55 Wound Center Nurse 2 #3 right lateral foot -Correct Patient Yes -Correct Side, Site, Position No -Correct Procedure No -Procedure Performed No -Post Debridement (cm) - Length 0 -Post Debridement (cm) - Width 0 -Post Debridement (cm) - Depth 0 -Total Square (Post) (cm) 0 -Area of Debridement (cm) - Length 0 -Area of Debridement (cm) - Width 0 -Total Square (Area) (cm) 0 -Wound/Ulcer Outcome Healed- Epithelialized right medial TMA ulcer -Time 08:55 -Correct Patient Yes -Correct Side, Site, Position Yes -Correct Procedure Yes -Procedure Performed Yes -Type of Procedure Debridement -Clinical Debridement Muscle / Fascia -Tissue Removed Muscle -Post Debridement (cm) - Length 1.0 -Post Debridement (cm) - Width 0.6 -Post Debridement (cm) - Depth 0.6 -Total Square (Post) (cm) 0.60 -Area of Debridement (cm) - Length 1.0 -Area of Debridement (cm) - Width 0.6 -Total Square (Area) (cm) 0.60 -Tunneling No -Undermining/Tunneling No -Circular Undermining No -Wound/Ulcer Outcome Not Healed -Ulcer Cleansing Rinsed/ Irrigated with Saline -Foul Odor after Cleansing No -Bioengineered Tissue No -Bleeding Controlled with Pressure -Treatment Response Procedure Tolerated Well -Offloading No -Debridement - Muscle / Fascia, 1st Yes 20sq cm #4 right heel -Time 08:57 -Correct Patient Yes -Correct Side, Site, Position Yes -Correct Procedure Yes -Procedure Performed Yes -Type of Procedure Debridement -Clinical Debridement Subcutaneous -Tissue Removed Subcutaneous -Post Debridement (cm) - Length 1.7 -Post Debridement (cm) - Width 0.7 -Post Debridement (cm) - Depth 0.2 -Total Square (Post) (cm) 1.19 -Area of Debridement (cm) - Length 1.7 -Area of Debridement (cm) - Width 0.7 -Total Square (Area) (cm) 1.19 -Tunneling No -Undermining/Tunneling No -Circular Undermining No -Wound/Ulcer Outcome Not Healed -Ulcer Cleansing Rinsed/ Irrigated with Saline -Foul Odor after Cleansing No -Bioengineered Tissue Yes -Type of Bioengineered Tissue Epifix 18mm Disc -Expiration Date 07/18/29 -Product Lot Number [id number] -Percent Used 100 -Lot number of Saline Used [id number] -Bleeding Controlled with Pressure -Treatment Response Procedure Tolerated Well -Offloading Yes -Type of Offloading Surgical Shoe -Debridement - Subq, 1st 20sq cm No -Apply Skin Sub - 1st 25 sq cm - Feet 1 -Epifix 18mm Disc Application 1-4 3 Pain Scale: 0-10 Numeric Is Patient Pain Free? Yes - Nurse 3 - General Ulcer D/C NN Start: 12/19/24 08:43 Freq: Status: Active Protocol: Activity Type Activity Date Activity User E-sign Co-sign Detail Recorded Client Recorded Date Recorded By Document 12/19/24 09:09 JOHNSON [id number] 12/19/24 09:09 KW 12/19/24 09:09 Wound Care Center Nurse 3 right medial TMA ulcer -Primary Dressing Applied Promogran Araceli Matter -Primary Dressing Covered/Secured with Dry Gauze -Promogran Araceli Matter 1 #4 right heel -Primary Dressing Covered/Secured with Dry Gauze & Roll Gauze, Secured with Tape RLE -Tubular Bandage Single Layer -Size of Tubigrip Used Size D -Size D ($) 1 Pain Scale: 0-10 Numeric Is Patient Pain Free? Yes WC - Visit Discharge Discharge Condition Stable Transportation Private Auto Medication Reconcilliation completed & No provided to patient/care provider Clinical Summary of Care Provided Yes
[2024-12-26 08:10] VITALS: BP 119/63; PULSE 83; RESP 16; TEMP 36.5; BMI 26.4
--- NOTE | 2024-12-26 09:17 | PN.PCM_ITS ---
History of Present Illness Date of Service: 12/26/24 Chief Complaint: Ulcer right foot History of Wound: Stable full-thickness wound right foot slow to heal Progress of Wound: Stable healing wounds to right lower extremity. Subjective Subjective Mr. Coronel is a 74-year-old diabetic male presenting to wound care center today follow-up evaluation of full-thickness wound to the TMA site as well as to the heel of the right lower extremity. Patient does show evidence of a pressure sore to the medial aspect of the TMA site secondary to wearing his surgical shoe all day. Patient states that he wears it all day so he does not have to put it on when he begins to walk at home. He still admits to smoking but has cut back. His blood sugar has been well-controlled. He denies any hyperglycemia at this time. He denies trauma. Denies constitutional symptoms. Other pedal complaints at this time. Objective Data Objective Data Vital Signs: Vital Signs Temp Pulse Resp BP O2 Del Method 97.7 F L 83 16 119/63 Room Air 12/26/24 08:10 12/26/24 08:10 12/26/24 08:10 12/26/24 08:10 12/26/24 08:10 Oxygen Delivery Method Room Air Weight: 86.183 kg Body Mass Index (BMI) 26.4 Physical Exam Narrative Vascular: DP and PT pulses are palpable to the right lower extremity. CFT is brisk to the flap to the right foot. Skin temperature great is warm to warm from proximal ankles to distal digits. Neurological: Light touch intact. Patient does not respond to painful stimuli. Dermatological: Evidence of pressure sore to the medial aspect of the right TMA site with a full-thickness wound measuring 0.5 x 0.5 x 0.3 cm. Right lateral transmetatarsal amputation site full-thickness wound measures 0.9 x 0.4 x 0.7 cm. Positive probe to bone. No sign of infection. Full-thickness wound to the right heel measuring 1.0 x 0.4 x 0.2. Negative probe to bone. No malodor. Excisional debridement down to and including subcutaneous tissue of the right posterior heel with a number 3 mm dermal curette without incident. Predebridement measurement was not smaller so was at 0.3 x 0.4 x 0.1 cm postdebridement measurement is 0.5 x 0.5 x 0.3 cm. EpiFix 18 mm disc graft was applied to the right heel full-thickness ulceration with 100% use. 9th application. The graft site was free and clear of any infection. The wound/skin graft substitute was dressed with nonadherent bandage secured in place with Steri-Strips followed by bolster dressing as well as a single Tubigrip compression bandage donned to the right lower extremity. Excisional debridement down to including subcutaneous tissue to the right lateral TMA full-thickness ulcer with a number 3 mm dermal curette without incident. Predebridement measurement was callus. Postdebridement measurement is 0.9 x 0.4 x 0.7 cm. Excisional debridement down to and including subcutaneous tissue to the right medial TM a full-thickness ulcer with a number 3 mm dermal curette without incident. Predebridement measurement was eschar. Postdebridement measurement is 0.5 x 0.5 x 0.3 cm. Musculoskeletal. Muscle strength is 5 out of 5 in all quadrants to the right lower extremity. No pain to palpation to the full-thickness wounds to the right lower extremity. No pain with calf pressure. Debridement Note Debridement Note Debridement Free Text: Excisional debridement down to and including subcutaneous tissue of the right posterior heel with a number 3 mm dermal curette without incident. Predebridement measurement was not smaller so was at 0.3 x 0.4 x 0.1 cm postdebridement measurement is 0.5 x 0.5 x 0.3 cm. EpiFix 18 mm disc graft was applied to the right heel full-thickness ulceration with 100% use. 9th application. The graft site was free and clear of any infection. The wound/skin graft substitute was dressed with nonadherent bandage secured in place with Steri-Strips followed by bolster dressing as well as a s jimmy Tubigrip compression bandage donned to the right lower extremity. Excisional debridement down to including subcutaneous tissue to the right lateral TMA full-thickness ulcer with a number 3 mm dermal curette without incident. Predebridement measurement was callus. Postdebridement measurement is 0.9 x 0.4 x 0.7 cm. Excisional debridement down to and including subcutaneous tissue to the right medial TM a full-thickness ulcer with a number 3 mm dermal curette without incident. Predebridement measurement was eschar. Postdebridement measurement is 0.5 x 0.5 x 0.3 cm. Post-Debridement Measurements and Additional Note: Post-Debridement Measurements/Treatment - Nurse 1 - General Ulcer Assessment Start: 12/19/24 08:43 Freq: Status: Active Protocol: YOCASTA Activity Type Activity Date Activity User E-sign Co-sign Detail Recorded Client Recorded Date Recorded By Document 12/19/24 08:44 MT [id number] 12/19/24 08:50 MT Document 12/26/24 08:10 DS [id number] 12/26/24 08:17 DS 12/19/24 12/26/24 08:44 08:10 WC - Today's Visit Information Type of service Follow-up Visit Follow-up Visit (Physician/BURNER SHAFT (Physician/BURNER SHAFT ) ) Arrival Mode Ambulatory Ambulatory, Walker Accompanied by self Patient Identification Verified (Name & Yes Yes ) Patient Requires Transmission-Based No Precautions Safety Precautions Fall Prevention Fall Prevention Height and Weight Body Mass Index (BMI) 26.4 26.4 BMI Classification Overweight Overweight Vital Signs Temperature (97.8 F-99.1 F) 98 F 97.7 F L Temperature Source Temporal Temporal Pulse Rate (60-100) 94 83 Pulse Location Monitor Monitor Respiratory Rate (12-18) 18 16 Respiratory rate source Observation Observation Oxygen Delivery Method Room Air Room Air Blood Pressure (90/60-120/80) 147/71 H 119/63 Blood Pressure Mean (mm Hg) 96 81 Source Monitor Monitor Position Sitting Semi-Fowlers Blood Pressure Location Right Arm Right Arm History Since Last Visit- (Skip if this is Patient's initial visit) Has dressing in place as prescribed Yes Has compression in place as prescribed Yes Has offloadiing in place as prescribed Yes Experienced any changes in pain level or Yes management Left Footwear Regular Shoe Regular Shoe Right Footwear Diabetic Shoe Surgical Shoe with pressure relief insole Pain Scale: 0-10 Numeric Is Patient Pain Free? Yes Yes - Nurse 1 - General Ulcer Measurement Start: 12/19/24 08:43 Freq: Status: Active Protocol: Activity Type Activity Date Activity User E-sign Co-sign Detail Recorded Client Recorded Date Recorded By Document 12/19/24 08:44 MT [id number] 12/19/24 08:50 MT Document 12/26/24 08:17 DS [id number] 12/26/24 08:27 DS 12/19/24 12/26/24 08:44 08:17 Wound Center Nurse 1 #3 right lateral foot -Current Size (cm) - Length 0.1 -Current Size (cm) - Width 0.1 -Current Size (cm) - Depth 0.1 -Total Square Cm 0.01 -Photo Taken No -Tunneling No -Undermining/Tunneling No -Circular Undermining No -Exudate Amt None Present -Wound Margin Flat & Intact -Granulation Amt Large (67-100%) -Granulation Quality Pale,[place] -Slough/Fibrin No -Texture (Donna-wound Skin Appearance) Assessed -Moisture (Donna-wound Skin Appearance) Assessed -Color (Donna-wound Skin Appearance) Assessed -Temperature (Donna-wound Skin No Abnormality Appearance) (Pt Warm) -Tenderness on Palpation (Donna-wound No Skin Appearance) -Ulcer Cleansing Soap and Water -Foul Odor after Cleansing No -Anesthetic Used 5% Lidocaine Gel right lateral TMA -Current Size (cm) - Length 1.0 -Current Size (cm) - Width 0.3 -Current Size (cm) - Depth 1.0 -Total Square Cm 0.30 -Date of Last Picture (Recall this 12/26/24 field) -Photo Taken Yes -Tunneling No -Undermining/Tunneling No -Circular Undermining No -Exudate Amt Medium -Exudate Type Serosanguineous -Wound Margin Distinct, Outline Attached -Necrosis Amt Medium (34-66%) -Necrotic Tissue Type Adherent Slough -Texture (Donan-wound Skin Appearance) Assessed -Moisture (Donna-wound Skin Appearance) Assessed, Maceration -Color (Donna-wound Skin Appearance) Assessed -Temperature (Donna-wound Skin No Abnormality Appearance) (Pt Warm) -Ulcer Cleansing Soap and Water -Foul Odor after Cleansing No -Anesthetic Used 5% Lidocaine Gel right medial TMA ulcer -Current Size (cm) - Length 0.1 -Current Size (cm) - Width 0.1 -Current Size (cm) - Depth 0.1 -Total Square Cm 0.01 -Photo Taken Yes -Epithelialization Large 67-100% -Tunneling No -Undermining/Tunneling No -Circular Undermining No -Exudate Amt None Present -Wound Margin Flat & Intact -Granulation Amt Large (67-100%) -Granulation Quality Pale,[place] -Slough/Fibrin No -Texture (Donna-wound Skin Appearance) Assessed -Moisture (Donna-wound Skin Appearance) Assessed -Color (Donna-wound Skin Appearance) Assessed -Temperature (Donna-wound Skin No Abnormality Appearance) (Pt Warm) -Tenderness on Palpation (Donna-wound No Skin Appearance) -Ulcer Cleansing Soap and Water -Foul Odor after Cleansing No -Anesthetic Used 5% Lidocaine Gel #4 right heel -Current Size (cm) - Length 2.0 1.0 -Current Size (cm) - Width 2.7 1.0 -Current Size (cm) - Depth 0.2 0.3 -Total Square Cm 5.40 1.00 -Date of Last Picture (Recall this 12/26/24 field) -Photo Taken No Yes -Tunneling No No -Undermining/Tunneling No No -Circular Undermining No No -Exudate Amt None Present Medium -Exudate Type Serosanguineous -Wound Margin Flat & Intact Distinct, Outline Attached -Granulation Amt Large (67-100%) -Granulation Quality Pale,[place] -Slough/Fibrin No -Necrosis Amt Large (67-100%) -Necrotic Tissue Type Adherent Slough -Texture (Donna-wound Skin Appearance) Assessed Assessed -Moisture (Donna-wound Skin Appearance) Assessed Assessed -Color (Donna-wound Skin Appearance) Assessed Assessed -Temperature (Donna-wound Skin No Abnormality No Abnormality Appearance) (Pt Warm) (Pt Warm) -Tenderness on Palpation (Donna-wound No No Skin Appearance) -Ulcer Cleansing Soap and Water Soap and Water -Foul Odor after Cleansing No No -Anesthetic Used 5% Lidocaine 5% Lidocaine Gel Gel Lower Limb Edema Present NA Yes Right Calf (cm) 29.8 Right Ankle (cm) 22.0 WC - Nurse 2 - General Ulcer CM Notes Start: 12/19/24 08:43 Freq: Status: Active Protocol: Activity Type Activity Date Activity User E-sign Co-sign Detail Recorded Client Recorded Date Recorded By Document 12/19/24 08:55 NESS [id number] 12/19/24 09:06 JF Document 12/26/24 08:43 JF [id number] 12/26/24 08:54 JF 12/19/24 12/26/24 08:55 08:43 Wound Center Nurse 2 #3 right lateral foot -Correct Patient Yes -Correct Side, Site, Position No -Correct Procedure No -Procedure Performed No -Post Debridement (cm) - Length 0 -Post Debridement (cm) - Width 0 -Post Debridement (cm) - Depth 0 -Total Square (Post) (cm) 0 -Area of Debridement (cm) - Length 0 -Area of Debridement (cm) - Width 0 -Total Square (Area) (cm) 0 -Wound/Ulcer Outcome Healed- Epithelialized right lateral TMA -Time 08:43 -Correct Patient Yes -Correct Side, Site, Position Yes -Correct Procedure Yes -Procedure Performed Yes -Type of Procedure Debridement -Clinical Debridement Bone -Tissue Removed Non-viable tissue -Post Debridement (cm) - Length 0.9 -Post Debridement (cm) - Width 0.4 -Post Debridement (cm) - Depth 0.7 -Total Square (Post) (cm) 0.36 -Area of Debridement (cm) - Length 0.9 -Area of Debridement (cm) - Width 0.4 -Total Square (Area) (cm) 0.36 -Tunneling No -Undermining/Tunneling No -Circular Undermining No -Wound/Ulcer Outcome Not Healed -Ulcer Cleansing Rinsed/ Irrigated with Saline -Foul Odor after Cleansing No -Bioengineered Tissue No -Bleeding Controlled with Pressure -Treatment Response Procedure Tolerated Well -Offloading Yes -Type of Offloading Surgical Shoe -Debridement - Bone, 1st 20sq cm Yes right medial TMA ulcer -Time 08:55 08:53 -Correct Patient Yes Yes -Correct Side, Site, Position Yes Yes -Correct Procedure Yes Yes -Procedure Performed Yes Yes -Type of Procedure Debridement Debridement -Clinical Debridement Muscle / Fascia Subcutaneous -Tissue Removed Muscle Subcutaneous -Post Debridement (cm) - Length 1.0 0.5 -Post Debridement (cm) - Width 0.6 0.5 -Post Debridement (cm) - Depth 0.6 0.3 -Total Square (Post) (cm) 0.60 0.25 -Area of Debridement (cm) - Length 1.0 0.5 -Area of Debridement (cm) - Width 0.6 0.5 -Total Square (Area) (cm) 0.60 0.25 -Tunneling No No -Undermining/Tunneling No No -Circular Undermining No No -Wound/Ulcer Outcome Not Healed Not Healed -Ulcer Cleansing Rinsed/ Rinsed/ Irrigated with Irrigated with Saline Saline -Foul Odor after Cleansing No No -Bioengineered Tissue No No -Bleeding Controlled with Pressure Pressure -Treatment Response Procedure Procedure Tolerated Well Tolerated Well -Offloading No Yes -Type of Offloading Surgical Shoe -Debridement - Subq, 1st 20sq cm Yes -Debridement - Muscle / Fascia, 1st Yes 20sq cm #4 right heel -Time 08:57 08:51 -Correct Patient Yes Yes -Correct Side, Site, Position Yes Yes -Correct Procedure Yes Yes -Procedure Performed Yes Yes -Type of Procedure Debridement Debridement -Clinical Debridement Subcutaneous Subcutaneous -Tissue Removed Subcutaneous Subcutaneous -Post Debridement (cm) - Length 1.7 1 -Post Debridement (cm) - Width 0.7 0.4 -Post Debridement (cm) - Depth 0.2 0.2 -Total Square (Post) (cm) 1.19 0.4 -Area of Debridement (cm) - Length 1.7 1 -Area of Debridement (cm) - Width 0.7 0.4 -Total Square (Area) (cm) 1.19 0.4 -Tunneling No No -Undermining/Tunneling No No -Circular Undermining No No -Wound/Ulcer Outcome Not Healed Not Healed -Ulcer Cleansing Rinsed/ Rinsed/ Irrigated with Irrigated with Saline Saline -Foul Odor after Cleansing No No -Bioengineered Tissue Yes Yes -Type of Bioengineered Tissue Epifix 18mm Epifix 18mm Disc Disc -Expiration Date 07/18/29 06/17/29 -Product Lot Number [id number] -Percent Used 100 100 -Lot number of Saline Used [id number] -Bleeding Controlled with Pressure Pressure -Treatment Response Procedure Procedure Tolerated Well Tolerated Well -Offloading Yes Yes -Type of Offloading Surgical Shoe Surgical Shoe -Debridement - Subq, 1st 20sq cm No No -Apply Skin Sub - 1st 25 sq cm - Feet 1 1 -Epifix 18mm Disc Application 1-4 3 3 Pain Scale: 0-10 Numeric Is Patient Pain Free? Yes Yes - Nurse 3 - General Ulcer D/C NN Start: 12/19/24 08:43 Freq: Status: Active Protocol: Activity Type Activity Date Activity User E-sign Co-sign Detail Recorded Client Recorded Date Recorded By Document 12/19/24 09:09 [id number] 12/19/24 09:09 KW Document 12/26/24 09:10 DS [id number] 12/26/24 09:17 DS 12/19/24 12/26/24 09:09 09:10 Wound Care Center Nurse 3 right lateral TMA -Primary Dressing Applied Promogran Araceli Matter -Other Dressing conforming bandage -Primary Dressing Covered/Secured with Dry Gauze, Secured with Tape -Promogran Araceli Matter 1 right medial TMA ulcer -Primary Dressing Applied Promogran Araceli Matter -Other Dressing nurse hat -Primary Dressing Covered/Secured with Dry Gauze Dry Gauze & Roll Gauze, Secured with Tape -Promogran Araceli Matter 1 #4 right heel -Other Dressing epifix -Primary Dressing Covered/Secured with Dry Gauze & Dry Gauze, Roll Gauze, Secured with Secured with Tape Tape RLE -Tubular Bandage Single Layer Single Layer -Size of Tubigrip Used Size D Size D -Size D ($) 1 1 Pain Scale: 0-10 Numeric Is Patient Pain Free? Yes Yes WC - Visit Discharge Discharge Condition Stable Stable Ambulatory Status Ambulatory, Walker Transportation Private Auto Private Auto Medication Reconcilliation completed & No provided to patient/care provider Clinical Summary of Care Provided Yes Assessment/Plan Assessment/Plan (1) Non-pressure chronic ulcer of right heel and midfoot with fat layer exposed: CODE(S): L97.412 - Non-pressure chronic ulcer of right heel and midfoot with fat layer exposed PLAN: Patient was examined and evaluated. All findings were discussed with the patient. All questions were answered to the patient's satisfaction. Excisional debridement down to and including subcutaneous tissue of the right posterior heel with a number 3 mm dermal curette without incident. Predebri nataly measurement was not smaller so was at 0.3 x 0.4 x 0.1 cm postdebridement measurement is 0.5 x 0.5 x 0.3 cm. EpiFix 18 mm disc graft was applied to the right heel full-thickness ulceration with 100% use. 9th application. The graft site was free and clear of any infection. The wound/skin graft substitute was dressed with nonadherent bandage secured in place with Steri-Strips followed by bolster dressing as well as a single Tubigrip compression bandage donned to the right lower extremity. Excisional debridement down to including subcutaneous tissue to the right lateral TMA full-thickness ulcer with a number 3 mm dermal curette without incident. Predebridement measurement was callus. Postdebridement measurement is 0.9 x 0.4 x 0.7 cm. Excisional debridement down to and including subcutaneous tissue to the right medial TM a full-thickness ulcer with a number 3 mm dermal curette without incident. Predebridement measurement was eschar. Postdebridement measurement is 0.5 x 0.5 x 0.3 cm. Full-thickness wound the TMA site was dressed with moist Araceli followed by dry sterile dressing with a single Tubigrip compression bandage that was donned after the EpiFix was placed. Patient will continue home health care for dressing changes and will leave the skin graft substitute clean dry and intact. Will continue strict blood sugar control. Educated the patient on smoking cessation. 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
--- NOTE | 2024-12-26 13:55 | WC ---
PHOTO 12/26/24 RIGHT [facility]
--- NOTE | 2024-12-26 14:04 | WC ---
PHOTO 12/26/24 RIGHT HEEL
--- NOTE | 2024-12-26 14:09 | WC ---
PHOTO 12/26/24 RIGHT LATERAL TMA
[2025-01-02 08:12] VITALS: BP 102/43; PULSE 89; RESP 16; TEMP 36.4; BMI 26.4
[2025-01-02 09:34] VITALS: BP 183/55; PULSE 68; RESP 16; TEMP 36.2; BMI 26.4
--- NOTE | 2025-01-02 11:30 | PN.PCM_ITS ---
History of Present Illness Date of Service: 01/02/25 Chief Complaint: Ulcer right foot History of Wound: Stable full-thickness wound right foot slow to heal Progress of Wound: Stable healing wounds to right lower extremity. Subjective Subjective Mr. Coronel is a 74-year-old diabetic male presented with concern today follow-up evaluation of medial lateral TMA full-thickness wound and heel wound to the right lower extremity. Patient has been compliant with dressing changes and left the graft site clean dry and intact. Blood sugar has been well-controlled. Still mitts to smoking. He denies trauma. Denies constitutional symptoms. No other pedal complaints at this time. Objective Data Objective Data Vital Signs: Vital Signs Temp Pulse Resp BP O2 Del Method 97.2 F L 68 16 183/55 H Room Air 01/02/25 09:34 01/02/25 09:34 01/02/25 09:34 01/02/25 09:34 01/02/25 09:34 Oxygen Delivery Method Room Air Weight: 86.183 kg Body Mass Index (BMI) 26.4 Physical Exam Narrative Vascular: DP and PT pulses are palpable to the right lower extremity. CFT is brisk to the flap to the right foot. Skin temperature great is warm to warm from proximal ankles to distal digits. Neurological: Light touch intact. Patient does not respond to painful stimuli. Dermatological: Full-thickness wound to the medial aspect of the right transmetatarsal amputation site measuring 0.2 x 0.3 x 0.5 cm. Right lateral transmetatarsal amputation site full-thickness wound measures 0.5 x 0.4 x 0.7 cm. Positive probe to bone. No sign of infection. Full-thickness wound to the right heel measuring 1.4 x 0.4 x 0.2 cm. Negative probe to bone. No malodor. Excisional debridement down to and including subcutaneous tissue of the right posterior heel with a number 3 mm dermal curette without incident. Predebridement measurement was sanguinous crust. Postdebridement measurement is 1.4 x 0.4 x 0.2 cm. EpiFix 18 mm disc graft was applied to the right heel full-thickness ulceration with 100% use. 10th application. The graft site was free and clear of any infection. The wound/skin graft substitute was dressed with nonadherent bandage secured in place with Steri-Strips followed by bolster dressing as well as a single Tubigrip compression bandage donned to the right lower extremity. Excisional debridement down to including subcutaneous tissue to the right lateral TMA full-thickness ulcer with a number 3 mm dermal curette without incident. Predebridement measurement was callus. Postdebridement measurement is 0.5 x 0.4 x 0.7 cm. Excisional debridement down to and including subcutaneous tissue to the right medial TM a full-thickness ulcer with a number 3 mm dermal curette without incident. Predebridement measurement was eschar. Postdebridement measurement is 0.2 x 0.3 x 0.5 cm. Musculoskeletal. Muscle strength is 5 out of 5 in all quadrants to the right lower extremity. No pain to palpation to the full-thickness wounds to the right lower extremity. No pain with calf pressure. Debridement Note Debridement Note Debridement Free Text: Excisional debridement down to and including subcutaneous tissue of the right posterior heel with a number 3 mm dermal curette without incident. Predebridement measurement was sanguinous crust. Postdebridement measurement is 1.4 x 0.4 x 0.2 cm. EpiFix 18 mm disc graft was applied to the right heel full-thickness ulceration with 100% use. 10th application. The graft site was free and clear of any infection. The wound/skin graft substitute was dressed with nonadherent bandage secured in place with Steri-Strips followed by bolster dressing as well as a single Tubigrip compression bandage donned to the right lower extremity. Excisional debridement down to including subcutaneous tissue to the right lateral TMA full-thickness ulcer with a number 3 mm dermal curette without incident. Predebridement measurement was callus. Postdebridement measurement is 0.5 x 0.4 x 0.7 cm. Excisional debridement down to and including subcutaneous tissue to the right medial TM a full-thickness ulcer with a number 3 mm dermal curette without incident. Predebridement measurement was eschar. Postdebridement measurement is 0.2 x 0.3 x 0.5 cm. Post-Debridement Measurements and Additional Note: Post-Debridement Measurements/Treatment DOLORES - Nurse 1 - General Ulcer Assessment Start: 12/19/24 08:43 Freq: Status: Active Protocol: YOCASTA Activity Type Activity Date Activity User E-sign Co-sign Detail Recorded Client Recorded Date Recorded By Document 12/19/24 08:44 MT [id number] 12/19/24 08:50 MT Document 12/26/24 08:10 DS [id number] 12/26/24 08:17 DS Document 01/02/25 08:12 KW [id number] 01/02/25 08:21 KW Document 01/02/25 09:34 GM [id number] 01/02/25 09:39 GM 12/19/24 12/26/24 01/02/25 08:44 08:10 08:12 WC - Today's Visit Information Type of service Follow-up Visit Follow-up Visit Follow-up Visit (Physician/SHADING PAINTER (Physician/SHADING PAINTER (Physician/SHADING PAINTER ) ) ) Arrival Mode Ambulatory Ambulatory, Ambulatory, Walker Walker Accompanied by self Patient Identification Verified (Name & Yes Yes Yes ) Patient Requires Transmission-Based No Precautions Safety Precautions Fall Prevention Fall Prevention Height and Weight Body Mass Index (BMI) 26.4 26.4 26.4 BMI Classification Overweight Overweight Overweight Vital Signs Temperature (97.8 F-99.1 F) 98 F 97.7 F L 97.5 F L Temperature Source Temporal Temporal Temporal Pulse Rate (60-100) 94 83 89 Pulse Location Monitor Monitor Monitor Respiratory Rate (12-18) 18 16 16 Respiratory rate source Observation Observation Observation Oxygen Delivery Method Room Air Room Air Room Air Blood Pressure (90/60-120/80) 147/71 H 119/63 102/43 L Blood Pressure Mean (mm Hg) 96 81 62 Source Monitor Monitor Monitor Position Sitting Semi-Fowlers Semi-Fowlers Blood Pressure Location Right Arm Right Arm Left Arm History Since Last Visit- (Skip if this is Patient's initial visit) Have you changed medications since your No last visit? Any new allergies or adverse reactions No Had a fall/change in ADL's that may No increase risk of falls Signs or symptoms of abuse and/or No neglect since last visit Have you been in the hospital since your No last visit? Has dressing in place as prescribed Yes Yes Has compression in place as prescribed Yes Yes Has offloadiing in place as prescribed Yes Yes Experienced any changes in pain level or Yes No management Left Footwear Regular Shoe Regular Shoe Regular Shoe Right Footwear Diabetic Shoe Surgical Shoe Surgical Shoe with pressure with pressure relief insole relief insole Pain Scale: 0-10 Numeric Is Patient Pain Free? Yes Yes Yes 01/02/25 09:34 WC - Today's Visit Information Type of service Follow-up Visit (Physician/SHADING PAINTER ) Arrival Mode Ambulatory Accompanied by Patient Identification Verified (Name & Yes ) Patient Requires Transmission-Based Precautions Safety Precautions Height and Weight Body Mass Index (BMI) 26.4 BMI Classification Overweight Vital Signs Temperature (97.8 F-99.1 F) 97.2 F L Temperature Source Temporal Pulse Rate (60-100) 68 Pulse Location Monitor Respiratory Rate (12-18) 16 Respiratory rate source Observation Oxygen Delivery Method Room Air Blood Pressure (90/60-120/80) 183/55 H Blood Pressure Mean (mm Hg) 97 Source Monitor Position Sitting Blood Pressure Location Right Arm History Since Last Visit- (Skip if this is Patient's initial visit) Have you changed medications since your No last visit? Any new allergies or adverse reactions No Had a fall/change in ADL's that may No increase risk of falls Signs or symptoms of abuse and/or No neglect since last visit Have you been in the hospital since your No last visit? Has dressing in place as prescribed Yes Has compression in place as prescribed Yes Has offloadiing in place as prescribed N/A Experienced any changes in pain level or No management Left Footwear Regular Shoe Right Footwear Regular Shoe Pain Scale: 0-10 Numeric Is Patient Pain Free? Yes - Nurse 1 - General Ulcer Measurement Start: 12/19/24 08:43 Freq: Status: Active Protocol: Activity Type Activity Date Activity User E-sign Co-sign Detail Recorded Client Recorded Date Recorded By Document 12/19/24 08:44 MT [id number] 12/19/24 08:50 MT Document 12/26/24 08:17 DS [id number] 12/26/24 08:27 DS Document 01/02/25 08:12 KW [id number] 01/02/25 08:21 KW Document 01/02/25 09:34 GM [id number] 01/02/25 09:39 GM 12/19/24 12/26/24 01/02/25 08:44 08:17 08:12 Wound Center Nurse 1 #3 right lateral foot -Current Size (cm) - Length 0.1 -Current Size (cm) - Width 0.1 -Current Size (cm) - Depth 0.1 -Total Square Cm 0.01 -Photo Taken No -Tunneling No -Undermining/Tunneling No -Circular Undermining No -Exudate Amt None Present -Wound Margin Flat & Intact -Granulation Amt Large (67-100%) -Granulation Quality Pale,[place] -Slough/Fibrin No -Texture (Donna-wound Skin Appearance) Assessed -Moisture (Donna-wound Skin Appearance) Assessed -Color (Donna-wound Skin Appearance) Assessed -Temperature (Donna-wound Skin No Abnormality Appearance) (Pt Warm) -Tenderness on Palpation (Donna-wound No Skin Appearance) -Ulcer Cleansing Soap and Water -Foul Odor after Cleansing No -Anesthetic Used 5% Lidocaine Gel right lateral TMA -Current Size (cm) - Length 1.0 0.5 -Current Size (cm) - Width 0.3 0.4 -Current Size (cm) - Depth 1.0 0.3 -Total Square Cm 0.30 0.20 -Date of Last Picture (Recall this 12/26/24 01/02/25 field) -Photo Taken Yes -Epithelialization -Tunneling No -Undermining/Tunneling No -Circular Undermining No -Exudate Amt Medium Medium -Exudate Type Serosanguineous Serosanguineous -Wound Margin Distinct, Distinct, Outline Outline Attached Attached -Granulation Amt Small (1-33%) -Granulation Quality [place],Red -Slough/Fibrin -Necrosis Amt Medium (34-66%) Large (67-100%) -Necrotic Tissue Type Adherent Slough Adherent Slough -Texture (Donna-wound Skin Appearance) Assessed Assessed -Moisture (Donna-wound Skin Appearance) Assessed, Assessed Maceration -Color (Donna-wound Skin Appearance) Assessed Assessed -Temperature (Donna-wound Skin No Abnormality No Abnormality Appearance) (Pt Warm) (Pt Warm) -Tenderness on Palpation (Donna-wound No Skin Appearance) -Ulcer Cleansing Soap and Water Soap and Water -Foul Odor after Cleansing No No -Anesthetic Used 5% Lidocaine 5% Lidocaine Gel Gel right medial TMA ulcer -Current Size (cm) - Length 0.1 1 -Current Size (cm) - Width 0.1 0.7 -Current Size (cm) - Depth 0.1 0.3 -Total Square Cm 0.01 0.7 -Date of Last Picture (Recall this 01/02/25 field) -Photo Taken Yes -Epithelialization Large 67-100% -Tunneling No -Undermining/Tunneling No -Circular Undermining No -Exudate Amt None Present Medium -Exudate Type Serosanguineous -Wound Margin Flat & Intact Distinct, Outline Attached -Granulation Amt Large (67-100%) Medium (34-66%) -Granulation Quality Pale,[place],Red -Slough/Fibrin No -Necrosis Amt Medium (34-66%) -Necrotic Tissue Type Adherent Slough -Texture (Donna-wound Skin Appearance) Assessed Assessed -Moisture (Donna-wound Skin Appearance) Assessed Assessed -Color (Donna-wound Skin Appearance) Assessed Assessed -Temperature (Donna-wound Skin No Abnormality No Abnormality Appearance) (Pt Warm) (Pt Warm) -Tenderness on Palpation (Donna-wound No No Skin Appearance) -Ulcer Cleansing Soap and Water Soap and Water -Foul Odor after Cleansing No No -Anesthetic Used 5% Lidocaine 5% Lidocaine Gel Gel #4 right heel -Current Size (cm) - Length 2.0 1.0 0.1 -Current Size (cm) - Width 2.7 1.0 0.1 -Current Size (cm) - Depth 0.2 0.3 0.1 -Total Square Cm 5.40 1.00 0.01 -Date of Last Picture (Recall this 12/26/24 01/02/25 field) -Photo Taken No Yes -Epithelialization -Tunneling No No -Undermining/Tunneling No No -Circular Undermining No No -Exudate Amt None Present Medium None Present -Exudate Type Serosanguineous -Wound Margin Flat & Intact Distinct, Outline Attached -Granulation Amt Large (67-100%) -Granulation Quality Pale,[place] -Slough/Fibrin No -Necrosis Amt Large (67-100%) -Necrotic Tissue Type Adherent Slough -Texture (Donna-wound Skin Appearance) Assessed Assessed Assessed -Moisture (Donna-wound Skin Appearance) Assessed Assessed Assessed -Color (Donna-wound Skin Appearance) Assessed Assessed Assessed -Temperature (Donna-wound Skin No Abnormality No Abnormality No Abnormality Appearance) (Pt Warm) (Pt Warm) (Pt Warm) -Tenderness on Palpation (Donna-wound No No No Skin Appearance) -Ulcer Cleansing Soap and Water Soap and Water Soap and Water -Foul Odor after Cleansing No No No -Anesthetic Used 5% Lidocaine 5% Lidocaine 5% Lidocaine Gel Gel Gel -Wound Comment(s) scabbed Lower Limb Edema Present NA Yes Right Calf (cm) 29.8 30.5 Right Ankle (cm) 22.0 19 Left Calf (cm) Left Ankle (cm) 01/02/25 09:34 Wound Center Nurse 1 #3 right lateral foot -Current Size (cm) - Length -Current Size (cm) - Width -Current Size (cm) - Depth -Total Square Cm -Photo Taken -Tunneling -Undermining/Tunneling -Circular Undermining -Exudate Amt -Wound Margin -Granulation Amt -Granulation Quality -Slough/Fibrin -Texture (Donna-wound Skin Appearance) -Moisture (Donna-wound Skin Appearance) -Color (Donna-wound Skin Appearance) -Temperature (Donna-wound Skin Appearance) -Tenderness on Palpation (Donna-wound Skin Appearance) -Ulcer Cleansing -Foul Odor after Cleansing -Anesthetic Used right lateral TMA -Current Size (cm) - Length 0.1 -Current Size (cm) - Width 0.1 -Current Size (cm) - Depth 0.1 -Total Square Cm 0.01 -Date of Last Picture (Recall this field) -Photo Taken No -Epithelialization None Present -Tunneling No -Undermining/Tunneling No -Circular Undermining No -Exudate Amt Medium -Exudate Type Yellow/Green -Wound Margin Distinct, Outline Attached -Granulation Amt Small (1-33%) -Granulation Quality [place] -Slough/Fibrin Yes -Necrosis Amt Small (1-33%) -Necrotic Tissue Type Adherent Slough -Texture (Donna-wound Skin Appearance) Assessed -Moisture (Donna-wound Skin Appearance) -Color (Donna-wound Skin Appearance) Assessed -Temperature (Donna-wound Skin No Abnormality Appearance) (Pt Warm) -Tenderness on Palpation (Donna-wound Yes Skin Appearance) -Ulcer Cleansing Soap and Water -Foul Odor after Cleansing No -Anesthetic Used 5% Lidocaine Gel right medial TMA ulcer -Current Size (cm) - Length 0.1 -Current Size (cm) - Width 0.1 -Current Size (cm) - Depth 0.1 -Total Square Cm 0.01 -Date of Last Picture (Recall this field) -Photo Taken No -Epithelialization None Present -Tunneling No -Undermining/Tunneling No -Circular Undermining No -Exudate Amt Medium -Exudate Type Yellow/Green -Wound Margin Distinct, Outline Attached -Granulation Amt None Present (0 %) -Granulation Quality -Slough/Fibrin No -Necrosis Amt Small (1-33%) -Necrotic Tissue Type Adherent Slough -Texture (Donna-wound Skin Appearance) Assessed -Moisture (Donna-wound Skin Appearance) Assessed -Color (Donna-wound Skin Appearance) No Abnormality -Temperature (Donna-wound Skin No Abnormality Appearance) (Pt Warm) -Tenderness on Palpation (Donna-wound Yes Skin Appearance) -Ulcer Cleansing Soap and Water -Foul Odor after Cleansing No -Anesthetic Used 5% Lidocaine Gel #4 right heel -Current Size (cm) - Length 0.1 -Current Size (cm) - Width 0.1 -Current Size (cm) - Depth 0.1 -Total Square Cm 0.01 -Date of Last Picture (Recall this field) -Photo Taken No -Epithelialization None Present -Tunneling No -Undermining/Tunneling No -Circular Undermining No -Exudate Amt Medium -Exudate Type Yellow/Green -Wound Margin Distinct, Outline Attached -Granulation Amt Small (1-33%) -Granulation Quality [place] -Slough/Fibrin No -Necrosis Amt Small (1-33%) -Necrotic Tissue Type Adherent Slough -Texture (Donna-wound Skin Appearance) Assessed -Moisture (Donna-wound Skin Appearance) Assessed -Color (Donna-wound Skin Appearance) Assessed -Temperature (Donna-wound Skin No Abnormality Appearance) (Pt Warm) -Tenderness on Palpation (Donna-wound Yes Skin Appearance) -Ulcer Cleansing Soap and Water -Foul Odor after Cleansing No -Anesthetic Used 5% Lidocaine Gel -Wound Comment(s) Lower Limb Edema Present No Right Calf (cm) 30 Right Ankle (cm) 19 Left Calf (cm) 32 Left Ankle (cm) 19 WC - Nurse 2 - General Ulcer CM Notes Start: 12/19/24 08:43 Freq: Status: Active Protocol: Activity Type Activity Date Activity User E-sign Co-sign Detail Recorded Client Recorded Date Recorded By Document 12/19/24 08:55 NESS [id number] 12/19/24 09:06 JF Document 12/26/24 08:43 NESS [id number] 12/26/24 08:54 NESS Document 01/02/25 08:42 NESS [id number] 01/02/25 08:53 JF 12/19/24 12/26/24 01/02/25 08:55 08:43 08:42 Wound Center Nurse 2 #3 right lateral foot -Correct Patient Yes -Correct Side, Site, Position No -Correct Procedure No -Procedure Performed No -Post Debridement (cm) - Length 0 -Post Debridement (cm) - Width 0 -Post Debridement (cm) - Depth 0 -Total Square (Post) (cm) 0 -Area of Debridement (cm) - Length 0 -Area of Debridement (cm) - Width 0 -Total Square (Area) (cm) 0 -Wound/Ulcer Outcome Healed- Epithelialized right lateral TMA -Time 08:43 08:42 -Correct Patient Yes Yes -Correct Side, Site, Position Yes Yes -Correct Procedure Yes Yes -Procedure Performed Yes Yes -Type of Procedure Debridement Debridement -Clinical Debridement Bone Bone -Tissue Removed Non-viable Non-viable tissue tissue -Post Debridement (cm) - Length 0.9 0.5 -Post Debridement (cm) - Width 0.4 0.4 -Post Debridement (cm) - Depth 0.7 0.7 -Total Square (Post) (cm) 0.36 0.20 -Area of Debridement (cm) - Length 0.9 0.5 -Area of Debridement (cm) - Width 0.4 0.4 -Total Square (Area) (cm) 0.36 0.20 -Tunneling No No -Undermining/Tunneling No No -Circular Undermining No No -Wound/Ulcer Outcome Not Healed Not Healed -Ulcer Cleansing Rinsed/ Rinsed/ Irrigated with Irrigated with Saline Saline -Foul Odor after Cleansing No No -Bioengineered Tissue No No -Bleeding Controlled with Pressure Pressure -Treatment Response Procedure Procedure Tolerated Well Tolerated Well -Offloading Yes Yes -Type of Offloading Surgical Shoe Surgical Shoe -Debridement - Bone, 1st 20sq cm Yes Yes right medial TMA ulcer -Time 08:55 08:53 08:42 -Correct Patient Yes Yes Yes -Correct Side, Site, Position Yes Yes Yes -Correct Procedure Yes Yes Yes -Procedure Performed Yes Yes Yes -Type of Procedure Debridement Debridement Debridement -Clinical Debridement Muscle / Fascia Subcutaneous Subcutaneous -Tissue Removed Muscle Subcutaneous Subcutaneous -Post Debridement (cm) - Length 1.0 0.5 0.2 -Post Debridement (cm) - Width 0.6 0.5 0.3 -Post Debridement (cm) - Depth 0.6 0.3 0.5 -Total Square (Post) (cm) 0.60 0.25 0.06 -Area of Debridement (cm) - Length 1.0 0.5 0.2 -Area of Debridement (cm) - Width 0.6 0.5 0.3 -Total Square (Area) (cm) 0.60 0.25 0.06 -Tunneling No No No -Undermining/Tunneling No No No -Circular Undermining No No No -Wound/Ulcer Outcome Not Healed Not Healed Not Healed -Ulcer Cleansing Rinsed/ Rinsed/ Rinsed/ Irrigated with Irrigated with Irrigated with Saline Saline Saline -Foul Odor after Cleansing No No No -Bioengineered Tissue No No No -Bleeding Controlled with Pressure Pressure Pressure -Treatment Response Procedure Procedure Procedure Tolerated Well Tolerated Well Tolerated Well -Offloading No Yes Yes -Type of Offloading Surgical Shoe Surgical Shoe -Debridement - Subq, 1st 20sq cm Yes Yes -Debridement - Muscle / Fascia, 1st Yes 20sq cm #4 right heel -Time 08:57 08:51 08:43 -Correct Patient Yes Yes Yes -Correct Side, Site, Position Yes Yes Yes -Correct Procedure Yes Yes Yes -Procedure Performed Yes Yes Yes -Type of Procedure Debridement Debridement Debridement -Clinical Debridement Subcutaneous Subcutaneous Subcutaneous -Tissue Removed Subcutaneous Subcutaneous Subcutaneous -Post Debridement (cm) - Length 1.7 1 1.4 -Post Debridement (cm) - Width 0.7 0.4 0.4 -Post Debridement (cm) - Depth 0.2 0.2 0.2 -Total Square (Post) (cm) 1.19 0.4 0.56 -Area of Debridement (cm) - Length 1.7 1 1.4 -Area of Debridement (cm) - Width 0.7 0.4 0.4 -Total Square (Area) (cm) 1.19 0.4 0.56 -Tunneling No No No -Undermining/Tunneling No No No -Circular Undermining No No No -Wound/Ulcer Outcome Not Healed Not Healed Not Healed -Ulcer Cleansing Rinsed/ Rinsed/ Rinsed/ Irrigated with Irrigated with Irrigated with Saline Saline Saline -Foul Odor after Cleansing No No No -Bioengineered Tissue Yes Yes Yes -Type of Bioengineered Tissue Epifix 18mm Epifix 18mm Epifix 18mm Disc Disc Disc -Expiration Date 07/18/29 06/17/2907/18/30 -Product Lot Number [id number] -Percent Used 100 100 100 -Lot number of Saline Used [id number] -Bleeding Controlled with Pressure Pressure Pressure -Treatment Response Procedure Procedure Procedure Tolerated Well Tolerated Well Tolerated Well -Offloading Yes Yes Yes -Type of Offloading Surgical Shoe Surgical Shoe Surgical Shoe -Debridement - Subq, 1st 20sq cm No No No -Apply Skin Sub - 1st 25 sq cm - Feet 1 1 1 -Epifix 18mm Disc Application 1-4 3 3 3 Pain Scale: 0-10 Numeric Is Patient Pain Free? Yes Yes Yes WC - Nurse 3 - General Ulcer D/C NN Start: 12/19/24 08:43 Freq: Status: Active Protocol: Activity Type Activity Date Activity User E-sign Co-sign Detail Recorded Client Recorded Date Recorded By Document 12/19/24 09:09 KW [id number] 12/19/24 09:09 KW Document 12/26/24 09:10 DS [id number] 12/26/24 09:17 DS Document 01/02/25 09:03 GM [id number] 01/02/25 09:04 GM 12/19/24 12/26/24 01/02/25 09:09 09:10 09:03 Wound Care Center Nurse 3 right lateral TMA -Ulcer Cleansing Not Cleansed -Foul Odor after Cleansing No -Primary Dressing Applied Promogran Promogran Araceli Matter Araceli Matter -Other Dressing conforming bandage -Primary Dressing Covered/Secured with Dry Gauze, Dry Gauze & Secured with Roll Gauze, Tape Secured with Tape -Promogran Araceli Matter 1 1 right medial TMA ulcer -Ulcer Cleansing Not Cleansed -Primary Dressing Applied Promogran Araceli Matter -Other Dressing nurse hat -Primary Dressing Covered/Secured with Dry Gauze Dry Gauze & Dry Gauze Roll Gauze, Secured with Tape -Promogran Araceli Matter 1 #4 right heel -Other Dressing epifix -Primary Dressing Covered/Secured with Dry Gauze & Dry Gauze, Dry Gauze,Other Roll Gauze, Secured with Secured with Tape Tape -Other Covering abd pad RLE -Tubular Bandage Single Layer Single Layer -Size of Tubigrip Used Size D Size D -Size D ($) 1 1 Pain Scale: 0-10 Numeric Is Patient Pain Free? Yes Yes Yes WC - Visit Discharge Discharge Condition Stable Stable Stable Ambulatory Status Ambulatory, Ambulatory, Walker Walker Transportation Private Auto Private Auto Private Auto Medication Reconcilliation completed & No provided to patient/care provider Clinical Summary of Care Provided Yes Assessment/Plan Assessment/Plan (1) Non-pressure chronic ulcer of right heel and midfoot with fat layer exposed: CODE(S): L97.412 - Non-pressure chronic ulcer of right heel and midfoot with fat layer exposed PLAN: Patient was examined and evaluated. All findings were discussed with the patient. All questions were answered to the patient's satisfaction. Excisional debridement down to and including subcutaneous tissue of the right posterior heel with a number 3 mm dermal curette without incident. Predebridement measurement was sanguinous crust. Postdebridement measurement is 1.4 x 0.4 x 0.2 cm. EpiFix 18 mm disc graft was applied to the right heel full-thickness ulceration with 100% use. 10th application. The graft site was free and clear of any infection. The wound/skin graft substitute was dressed with nonadherent bandage secured in place with Steri-Strips followed by bolster dressing as well as a single Tubigrip compression bandage donned to the right lower extremity. Excisional debridement down to including subcutaneous tissue to the right lateral TMA full-thickness ulcer with a number 3 mm dermal curette without incident. Predebridement measurement was callus. Postdebridement measurement is 0.5 x 0.4 x 0.7 cm. Excisional debridement down to and including subcutaneous tissue to the right medial TM a full-thickness ulcer with a number 3 mm dermal curette without incident. Predebridement measurement was eschar. Postdebridement measurement is 0.2 x 0.3 x 0.5 cm. Educated the patient continue smoking cessation. He will have the outer dressing changed by home health care with continued Araceli to the medial full- thickness wound. Educated the patient on the importance of blood sugar control and smoking cessation. He will continue his Renny supplementation. 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
--- NOTE | 2025-01-03 10:01 | WC ---
PHOTO 01/02/25 RTMA
[2025-01-09 08:11] VITALS: BP 131/69; PULSE 102; RESP 18; TEMP 36.8; BMI 26.4
--- NOTE | 2025-01-09 09:11 | PCM.WC.PN ---
History of Present Illness Date of Service: 01/09/25 Chief Complaint: Ulcer right foot History of Wound: Stable full-thickness wound right foot slow to heal Progress of Wound: Stable healing wounds to right lower extremity. 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 He has been compliant with dressing changes and left the amniotic skin graft clean dry and intact. Continues to smoke but at a reduced level. His blood sugars well-controlled. Denies trauma. Denies constitutional symptoms. No other pedal complaints at this time. Objective Data Objective Data Vital Signs: Vital Signs Temp Pulse Resp BP O2 Del Method 98.2 F 102 H 18 131/69 H Room Air 01/09/25 08:11 01/09/25 08:11 01/09/25 08:11 01/09/25 08:11 01/09/25 08:11 Oxygen Delivery Method Room Air Weight: 86.183 kg Body Mass Index (BMI) 26.4 Physical Exam Narrative Vascular: DP and PT pulses are palpable to the right lower extremity. CFT is brisk to the flap to the right foot. Skin temperature great is warm to warm from proximal ankles to distal digits. Neurological: Light touch intact. Patient does not respond to painful stimuli. Dermatological: Full-thickness wound to the medial aspect of the right transmetatarsal amputation site measuring 0.4 x 0.8 x 0.5 cm. Right lateral transmetatarsal amputation site full-thickness wound measures 0.7 x 0.4 x 0.8 cm. Positive probe to bone. No sign of infection. Amniotic skin graft appreciated to the right heel intact. Excisional debridement down to including subcutaneous tissue to the right lateral TMA full-thickness ulcer with a number 3 mm dermal curette without incident. Predebridement measurement was callus. Postdebridement measurement is 0.7 x 0.4 x 0.8 cm. Excisional debridement down to and including subcutaneous tissue to the right medial TM a full-thickness ulcer with a number 3 mm dermal curette without incident. Predebridement measurement was eschar. Postdebridement measurement is 0.4 x 0.8 x 0.5 cm Musculoskeletal. Muscle strength is 5 out of 5 in all quadrants to the right lower extremity. No pain to palpation to the full-thickness wounds to the right lower extremity. No pain with calf pressure. Debridement Note Debridement Note Debridement Free Text: Excisional debridement down to including subcutaneous tissue to the right lateral TMA full-thickness ulcer with a number 3 mm dermal curette without incident. Predebridement measurement was callus. Postdebridement measurement is 0.7 x 0.4 x 0.8 cm. Excisional debridement down to and including subcutaneous tissue to the right medial TM a full-thickness ulcer with a number 3 mm dermal curette without incident. Predebridement measurement was eschar. Postdebridement measurement is 0.4 x 0.8 x 0.5 cm Post-Debridement Measurements and Additional Note: Post-Debridement Measurements/Treatment - Nurse 1 - General Ulcer Assessment Start: 12/19/24 08:43 Freq: Status: Active Protocol: WC.LOWEXT Activity Type Activity Date Activity User E-sign Co-sign Detail Recorded Client Recorded Date Recorded By Document 12/19/24 08:44 MT [id number] 12/19/24 08:50 MT Document 12/26/24 08:10 DS [id number] 12/26/24 08:17 DS Document 01/02/25 08:12 KW [id number] 01/02/25 08:21 KW Document 01/02/25 09:34 GM [id number] 01/02/25 09:39 GM Document 01/09/25 08:11 KW [id number] 01/09/25 08:18 KW 12/19/24 12/26/24 01/02/25 08:44 08:10 08:12 - Today's Visit Information Type of service Follow-up Visit Follow-up Visit Follow-up Visit (Physician/VETERINARY LIVESTOCK INSPECTOR (Physician/VETERINARY LIVESTOCK INSPECTOR (Physician/VETERINARY LIVESTOCK INSPECTOR ) ) ) Arrival Mode Ambulatory Ambulatory, Ambulatory, Walker Walker Accompanied by self Patient Identification Verified (Name & Yes Yes Yes ) Patient Requires Transmission-Based No Precautions Safety Precautions Fall Prevention Fall Prevention Height and Weight Body Mass Index (BMI) 26.4 26.4 26.4 BMI Classification Overweight Overweight Overweight Vital Signs Temperature (97.8 F-99.1 F) 98 F 97.7 F L 97.5 F L Temperature Source Temporal Temporal Temporal Pulse Rate (60-100) 94 83 89 Pulse Location Monitor Monitor Monitor Respiratory Rate (12-18) 18 16 16 Respiratory rate source Observation Observation Observation Oxygen Delivery Method Room Air Room Air Room Air Blood Pressure (90/60-120/80) 147/71 H 119/63 102/43 L Blood Pressure Mean (mm Hg) 96 81 62 Source Monitor Monitor Monitor Position Sitting Semi-Fowlers Semi-Fowlers Blood Pressure Location Right Arm Right Arm Left Arm History Since Last Visit- (Skip if this is Patient's initial visit) Have you changed medications since your No last visit? Any new allergies or adverse reactions No Had a fall/change in ADL's that may No increase risk of falls Signs or symptoms of abuse and/or No neglect since last visit Have you been in the hospital since your No last visit? Has dressing in place as prescribed Yes Yes Has compression in place as prescribed Yes Yes Has offloadiing in place as prescribed Yes Yes Experienced any changes in pain level or Yes No management Left Footwear Regular Shoe Regular Shoe Regular Shoe Right Footwear Diabetic Shoe Surgical Shoe Surgical Shoe with pressure with pressure relief insole relief insole Pain Scale: 0-10 Numeric Is Patient Pain Free? Yes Yes Yes 01/02/25 01/09/25 09:34 08:11 WC - Today's Visit Information Type of service Follow-up Visit Follow-up Visit (Physician/VETERINARY LIVESTOCK INSPECTOR (Physician/VETERINARY LIVESTOCK INSPECTOR ) ) Arrival Mode Ambulatory Ambulatory, Walker Accompanied by Patient Identification Verified (Name & Yes Yes ) Patient Requires Transmission-Based Precautions Safety Precautions Height and Weight Body Mass Index (BMI) 26.4 26.4 BMI Classification Overweight Overweight Vital Signs Temperature (97.8 F-99.1 F) 97.2 F L 98.2 F Temperature Source Temporal Temporal Pulse Rate (60-100) 68 102 H Pulse Location Monitor Monitor Respiratory Rate (12-18) 16 18 Respiratory rate source Observation Observation Oxygen Delivery Method Room Air Room Air Blood Pressure (90/60-120/80) 183/55 H 131/69 H Blood Pressure Mean (mm Hg) 97 89 Source Monitor Monitor Position Sitting Semi-Fowlers Blood Pressure Location Right Arm Left Arm History Since Last Visit- (Skip if this is Patient's initial visit) Have you changed medications since your No No last visit? Any new allergies or adverse reactions No No Had a fall/change in ADL's that may No No increase risk of falls Signs or symptoms of abuse and/or No No neglect since last visit Have you been in the hospital since your No No last visit? Has dressing in place as prescribed Yes Yes Has compression in place as prescribed Yes Yes Has offloadiing in place as prescribed N/A Yes Experienced any changes in pain level or No No management Left Footwear Regular Shoe Regular Shoe Right Footwear Regular Shoe Surgical Shoe with pressure relief insole Pain Scale: 0-10 Numeric Is Patient Pain Free? Yes Yes WC - Nurse 1 - General Ulcer Measurement Start: 12/19/24 08:43 Freq: Status: Active Protocol: Activity Type Activity Date Activity User E-sign Co-sign Detail Recorded Client Recorded Date Recorded By Document 12/19/24 08:44 MT [id number] 12/19/24 08:50 MT Document 12/26/24 08:17 DS [id number] 12/26/24 08:27 DS Document 01/02/25 08:12 KW [id number] 01/02/25 08:21 KW Document 01/02/25 09:34 GM [id number] 01/02/25 09:39 GM Document 01/09/25 08:11 KW [id number] 01/09/25 08:18 KW 12/19/24 12/26/24 01/02/25 08:44 08:17 08:12 Wound Center Nurse 1 #3 right lateral foot -Current Size (cm) - Length 0.1 -Current Size (cm) - Width 0.1 -Current Size (cm) - Depth 0.1 -Total Square Cm 0.01 -Photo Taken No -Tunneling No -Undermining/Tunneling No -Circular Undermining No -Exudate Amt None Present -Wound Margin Flat & Intact -Granulation Amt Large (67-100%) -Granulation Quality Pale,[place] -Slough/Fibrin No -Texture (Donna-wound Skin Appearance) Assessed -Moisture (Donna-wound Skin Appearance) Assessed -Color (Donna-wound Skin Appearance) Assessed -Temperature (Donna-wound Skin No Abnormality Appearance) (Pt Warm) -Tenderness on Palpation (Donna-wound No Skin Appearance) -Ulcer Cleansing Soap and Water -Foul Odor after Cleansing No -Anesthetic Used 5% Lidocaine Gel right lateral TMA -Current Size (cm) - Length 1.0 0.5 -Current Size (cm) - Width 0.3 0.4 -Current Size (cm) - Depth 1.0 0.3 -Total Square Cm 0.30 0.20 -Date of Last Picture (Recall this 12/26/24 01/02/25 field) -Photo Taken Yes -Epithelialization -Tunneling No -Undermining/Tunneling No -Circular Undermining No -Exudate Amt Medium Medium -Exudate Type Serosanguineous Serosanguineous -Wound Margin Distinct, Distinct, Outline Outline Attached Attached -Granulation Amt Small (1-33%) -Granulation Quality [place],Red -Slough/Fibrin -Necrosis Amt Medium (34-66%) Large (67-100%) -Necrotic Tissue Type Adherent Slough Adherent Slough -Texture (Donna-wound Skin Appearance) Assessed Assessed -Moisture (Donna-wound Skin Appearance) Assessed, Assessed Maceration -Color (Donna-wound Skin Appearance) Assessed Assessed -Temperature (Donna-wound Skin No Abnormality No Abnormality Appearance) (Pt Warm) (Pt Warm) -Tenderness on Palpation (Donna-wound No Skin Appearance) -Ulcer Cleansing Soap and Water Soap and Water -Foul Odor after Cleansing No No -Anesthetic Used 5% Lidocaine 5% Lidocaine Gel Gel right medial TMA ulcer -Current Size (cm) - Length 0.1 1 -Current Size (cm) - Width 0.1 0.7 -Current Size (cm) - Depth 0.1 0.3 -Total Square Cm 0.01 0.7 -Date of Last Picture (Recall this 01/02/25 field) -Photo Taken Yes -Epithelialization Large 67-100% -Tunneling No -Undermining/Tunneling No -Circular Undermining No -Exudate Amt None Present Medium -Exudate Type Serosanguineous -Wound Margin Flat & Intact Distinct, Outline Attached -Granulation Amt Large (67-100%) Medium (34-66%) -Granulation Quality Pale,[place],Red -Slough/Fibrin No -Necrosis Amt Medium (34-66%) -Necrotic Tissue Type Adherent Slough -Texture (Donna-wound Skin Appearance) Assessed Assessed -Moisture (Donna-wound Skin Appearance) Assessed Assessed -Color (Donna-wound Skin Appearance) Assessed Assessed -Temperature (Donna-wound Skin No Abnormality No Abnormality Appearance) (Pt Warm) (Pt Warm) -Tenderness on Palpation (Donna-wound No No Skin Appearance) -Ulcer Cleansing Soap and Water Soap and Water -Foul Odor after Cleansing No No -Anesthetic Used 5% Lidocaine 5% Lidocaine Gel Gel -Wound Comment(s) #4 right heel -Current Size (cm) - Length 2.0 1.0 0.1 -Current Size (cm) - Width 2.7 1.0 0.1 -Current Size (cm) - Depth 0.2 0.3 0.1 -Total Square Cm 5.40 1.00 0.01 -Date of Last Picture (Recall this 12/26/24 01/02/25 field) -Photo Taken No Yes -Epithelialization -Tunneling No No -Undermining/Tunneling No No -Circular Undermining No No -Exudate Amt None Present Medium None Present -Exudate Type Serosanguineous -Wound Margin Flat & Intact Distinct, Outline Attached -Granulation Amt Large (67-100%) -Granulation Quality Pale,[place] -Slough/Fibrin No -Necrosis Amt Large (67-100%) -Necrotic Tissue Type Adherent Slough -Texture (Donna-wound Skin Appearance) Assessed Assessed Assessed -Moisture (Donna-wound Skin Appearance) Assessed Assessed Assessed -Color (Donna-wound Skin Appearance) Assessed Assessed Assessed -Temperature (Donna-wound Skin No Abnormality No Abnormality No Abnormality Appearance) (Pt Warm) (Pt Warm) (Pt Warm) -Tenderness on Palpation (Donna-wound No No No Skin Appearance) -Ulcer Cleansing Soap and Water Soap and Water Soap and Water -Foul Odor after Cleansing No No No -Anesthetic Used 5% Lidocaine 5% Lidocaine 5% Lidocaine Gel Gel Gel -Wound Comment(s) scabbed Lower Limb Edema Present NA Yes Right Calf (cm) 29.8 30.5 Right Ankle (cm) 22.0 19 Left Calf (cm) Left Ankle (cm) 01/02/25 01/09/25 09:34 08:11 Wound Center Nurse 1 #3 right lateral foot -Current Size (cm) - Length -Current Size (cm) - Width -Current Size (cm) - Depth -Total Square Cm -Photo Taken -Tunneling -Undermining/Tunneling -Circular Undermining -Exudate Amt -Wound Margin -Granulation Amt -Granulation Quality -Slough/Fibrin -Texture (Donna-wound Skin Appearance) -Moisture (Donna-wound Skin Appearance) -Color (Donna-wound Skin Appearance) -Temperature (Donna-wound Skin Appearance) -Tenderness on Palpation (Donna-wound Skin Appearance) -Ulcer Cleansing -Foul Odor after Cleansing -Anesthetic Used right lateral TMA -Current Size (cm) - Length 0.1 0.5 -Current Size (cm) - Width 0.1 0.3 -Current Size (cm) - Depth 0.1 0.1 -Total Square Cm 0.01 0.15 -Date of Last Picture (Recall this 01/09/25 field) -Photo Taken No -Epithelialization None Present -Tunneling No -Undermining/Tunneling No -Circular Undermining No -Exudate Amt Medium Medium -Exudate Type Yellow/Green Serosanguineous -Wound Margin Distinct, Distinct, Outline Outline Attached Attached -Granulation Amt Small (1-33%) Small (1-33%) -Granulation Quality [place] -Slough/Fibrin Yes -Necrosis Amt Small (1-33%) Large (67-100%) -Necrotic Tissue Type Adherent Slough Adherent Slough -Texture (Donna-wound Skin Appearance) Assessed Assessed -Moisture (Donna-wound Skin Appearance) Assessed -Color (Donna-wound Skin Appearance) Assessed Assessed -Temperature (Donna-wound Skin No Abnormality No Abnormality Appearance) (Pt Warm) (Pt Warm) -Tenderness on Palpation (Donna-wound Yes No Skin Appearance) -Ulcer Cleansing Soap and Water Soap and Water -Foul Odor after Cleansing No No -Anesthetic Used 5% Lidocaine 5% Lidocaine Gel Gel right medial TMA ulcer -Current Size (cm) - Length 0.1 0.1 -Current Size (cm) - Width 0.1 0.1 -Current Size (cm) - Depth 0.1 0.1 -Total Square Cm 0.01 0.01 -Date of Last Picture (Recall this 01/09/25 field) -Photo Taken No -Epithelialization None Present -Tunneling No -Undermining/Tunneling No -Circular Undermining No -Exudate Amt Medium Medium -Exudate Type Yellow/Green Serosanguineous -Wound Margin Distinct, Outline Attached -Granulation Amt None Present (0 %) -Granulation Quality -Slough/Fibrin No -Necrosis Amt Small (1-33%) -Necrotic Tissue Type Adherent Slough -Texture (Donna-wound Skin Appearance) Assessed Assessed -Moisture (Donna-wound Skin Appearance) Assessed Assessed -Color (Donna-wound Skin Appearance) No Abnormality Assessed -Temperature (Donna-wound Skin No Abnormality No Abnormality Appearance) (Pt Warm) (Pt Warm) -Tenderness on Palpation (Donna-wound Yes No Skin Appearance) -Ulcer Cleansing Soap and Water -Foul Odor after Cleansing No No -Anesthetic Used 5% Lidocaine Gel -Wound Comment(s) leave epi on today #4 right heel -Current Size (cm) - Length 0.1 0.1 -Current Size (cm) - Width 0.1 0.1 -Current Size (cm) - Depth 0.1 0.1 -Total Square Cm 0.01 0.01 -Date of Last Picture (Recall this 01/09/25 field) -Photo Taken No -Epithelialization None Present -Tunneling No -Undermining/Tunneling No -Circular Undermining No -Exudate Amt Medium Small -Exudate Type Yellow/Green Serosanguineous -Wound Margin Distinct, Outline Attached -Granulation Amt Small (1-33%) -Granulation Quality [place] -Slough/Fibrin No -Necrosis Amt Small (1-33%) -Necrotic Tissue Type Adherent Slough -Texture (Donna-wound Skin Appearance) Assessed Assessed -Moisture (Donna-wound Skin Appearance) Assessed Assessed -Color (Donna-wound Skin Appearance) Assessed Assessed -Temperature (Donna-wound Skin No Abnormality No Abnormality Appearance) (Pt Warm) (Pt Warm) -Tenderness on Palpation (Donna-wound Yes No Skin Appearance) -Ulcer Cleansing Soap and Water -Foul Odor after Cleansing No No -Anesthetic Used 5% Lidocaine Gel -Wound Comment(s) leave epi on today Lower Limb Edema Present No Right Calf (cm) 30 Right Ankle (cm) 19 Left Calf (cm) 32 Left Ankle (cm) 19 WC - Nurse 2 - General Ulcer CM Notes Start: 12/19/24 08:43 Freq: Status: Active Protocol: Activity Type Activity Date Activity User E-sign Co-sign Detail Recorded Client Recorded Date Recorded By Document 12/19/24 08:55 NESS [id number] 12/19/24 09:06 JF Document 12/26/24 08:43 JF [id number] 12/26/24 08:54 JF Document 01/02/25 08:42 JF [id number] 01/02/25 08:53 JF Document 01/09/25 08:44 DS [id number] 01/09/25 08:46 DS Edit Result 01/09/25 08:44 DS (1) [id number] 01/09/25 09:03 DS (1) right lateral TMA - Tunneling => No - Undermining/Tunneling => No - Circular Undermining => No - Wound/Ulcer Outcome => Not Healed - Ulcer Cleansing => Rinsed/Irrigated => with Saline - Foul Odor after Cleansing => No - Bioengineered Tissue => No - Bleeding Controlled with => Pressure - Treatment Response => Procedure => Tolerated Well right medial TMA ulcer - Tunneling => No - Undermining/Tunneling => No - Circular Undermining => No - Wound/Ulcer Outcome => Not Healed - Ulcer Cleansing => Rinsed/Irrigated => with Saline - Foul Odor after Cleansing => No - Bioengineered Tissue => No - Bleeding Controlled with => Pressure - Treatment Response => Procedure => Tolerated Well #4 right heel - Tunneling => No - Undermining/Tunneling => No - Circular Undermining => No 12/19/24 12/26/24 01/02/25 08:55 08:43 08:42 Wound Center Nurse 2 #3 right lateral foot -Correct Patient Yes -Correct Side, Site, Position No -Correct Procedure No -Procedure Performed No -Post Debridement (cm) - Length 0 -Post Debridement (cm) - Width 0 -Post Debridement (cm) - Depth 0 -Total Square (Post) (cm) 0 -Area of Debridement (cm) - Length 0 -Area of Debridement (cm) - Width 0 -Total Square (Area) (cm) 0 -Wound/Ulcer Outcome Healed- Epithelialized right lateral TMA -Time 08:43 08:42 -Correct Patient Yes Yes -Correct Side, Site, Position Yes Yes -Correct Procedure Yes Yes -Procedure Performed Yes Yes -Type of Procedure Debridement Debridement -Clinical Debridement Bone Bone -Tissue Removed Non-viable Non-viable tissue tissue -Post Debridement (cm) - Length 0.9 0.5 -Post Debridement (cm) - Width 0.4 0.4 -Post Debridement (cm) - Depth 0.7 0.7 -Total Square (Post) (cm) 0.36 0.20 -Area of Debridement (cm) - Length 0.9 0.5 -Area of Debridement (cm) - Width 0.4 0.4 -Total Square (Area) (cm) 0.36 0.20 -Tunneling No No -Undermining/Tunneling No No -Circular Undermining No No -Wound/Ulcer Outcome Not Healed Not Healed -Ulcer Cleansing Rinsed/ Rinsed/ Irrigated with Irrigated with Saline Saline -Foul Odor after Cleansing No No -Bioengineered Tissue No No -Bleeding Controlled with Pressure Pressure -Treatment Response Procedure Procedure Tolerated Well Tolerated Well -Offloading Yes Yes -Type of Offloading Surgical Shoe Surgical Shoe -Debridement - Bone, 1st 20sq cm Yes Yes right medial TMA ulcer -Time 08:55 08:53 08:42 -Correct Patient Yes Yes Yes -Correct Side, Site, Position Yes Yes Yes -Correct Procedure Yes Yes Yes -Procedure Performed Yes Yes Yes -Type of Procedure Debridement Debridement Debridement -Clinical Debridement Muscle / Fascia Subcutaneous Subcutaneous -Tissue Removed Muscle Subcutaneous Subcutaneous -Post Debridement (cm) - Length 1.0 0.5 0.2 -Post Debridement (cm) - Width 0.6 0.5 0.3 -Post Debridement (cm) - Depth 0.6 0.3 0.5 -Total Square (Post) (cm) 0.60 0.25 0.06 -Area of Debridement (cm) - Length 1.0 0.5 0.2 -Area of Debridement (cm) - Width 0.6 0.5 0.3 -Total Square (Area) (cm) 0.60 0.25 0.06 -Tunneling No No No -Undermining/Tunneling No No No -Circular Undermining No No No -Wound/Ulcer Outcome Not Healed Not Healed Not Healed -Ulcer Cleansing Rinsed/ Rinsed/ Rinsed/ Irrigated with Irrigated with Irrigated with Saline Saline Saline -Foul Odor after Cleansing No No No -Bioengineered Tissue No No No -Bleeding Controlled with Pressure Pressure Pressure -Treatment Response Procedure Procedure Procedure Tolerated Well Tolerated Well Tolerated Well -Offloading No Yes Yes -Type of Offloading Surgical Shoe Surgical Shoe -Debridement - Subq, 1st 20sq cm Yes Yes -Debridement - Muscle / Fascia, 1st Yes 20sq cm #4 right heel -Time 08:57 08:51 08:43 -Correct Patient Yes Yes Yes -Correct Side, Site, Position Yes Yes Yes -Correct Procedure Yes Yes Yes -Procedure Performed Yes Yes Yes -Type of Procedure Debridement Debridement Debridement -Clinical Debridement Subcutaneous Subcutaneous Subcutaneous -Tissue Removed Subcutaneous Subcutaneous Subcutaneous -Post Debridement (cm) - Length 1.7 1 1.4 -Post Debridement (cm) - Width 0.7 0.4 0.4 -Post Debridement (cm) - Depth 0.2 0.2 0.2 -Total Square (Post) (cm) 1.19 0.4 0.56 -Area of Debridement (cm) - Length 1.7 1 1.4 -Area of Debridement (cm) - Width 0.7 0.4 0.4 -Total Square (Area) (cm) 1.19 0.4 0.56 -Tunneling No No No -Undermining/Tunneling No No No -Circular Undermining No No No -Wound/Ulcer Outcome Not Healed Not Healed Not Healed -Ulcer Cleansing Rinsed/ Rinsed/ Rinsed/ Irrigated with Irrigated with Irrigated with Saline Saline Saline -Foul Odor after Cleansing No No No -Bioengineered Tissue Yes Yes Yes -Type of Bioengineered Tissue Epifix 18mm Epifix 18mm Epifix 18mm Disc Disc Disc -Expiration Date 07/18/29 06/17/29 07/18/29 -Product Lot Number [id number] -Percent Used 100 100 100 -Lot number of Saline Used [id number] -Bleeding Controlled with Pressure Pressure Pressure -Treatment Response Procedure Procedure Procedure Tolerated Well Tolerated Well Tolerated Well -Offloading Yes Yes Yes -Type of Offloading Surgical Shoe Surgical Shoe Surgical Shoe -Debridement - Subq, 1st 20sq cm No No No -Apply Skin Sub - 1st 25 sq cm - Feet 1 1 1 -Epifix 18mm Disc Application 1-4 3 3 3 Pain Scale: 0-10 Numeric Is Patient Pain Free? Yes Yes Yes 01/09/25 08:44 Wound Center Nurse 2 #3 right lateral foot -Correct Patient -Correct Side, Site, Position -Correct Procedure -Procedure Performed -Post Debridement (cm) - Length -Post Debridement (cm) - Width -Post Debridement (cm) - Depth -Total Square (Post) (cm) -Area of Debridement (cm) - Length -Area of Debridement (cm) - Width -Total Square (Area) (cm) -Wound/Ulcer Outcome right lateral TMA -Time 08:44 -Correct Patient Yes -Correct Side, Site, Position Yes -Correct Procedure Yes -Procedure Performed Yes -Type of Procedure Debridement -Clinical Debridement Bone -Tissue Removed Fascia -Post Debridement (cm) - Length 0.7 -Post Debridement (cm) - Width 0.4 -Post Debridement (cm) - Depth 0.8 -Total Square (Post) (cm) 0.28 -Area of Debridement (cm) - Length 0.7 -Area of Debridement (cm) - Width 0.4 -Total Square (Area) (cm) 0.28 -Tunneling No -Undermining/Tunneling No -Circular Undermining No -Wound/Ulcer Outcome Not Healed -Ulcer Cleansing Rinsed/ Irrigated with Saline -Foul Odor after Cleansing No -Bioengineered Tissue No -Bleeding Controlled with Pressure -Treatment Response Procedure Tolerated Well -Offloading -Type of Offloading -Debridement - Bone, 1st 20sq cm Yes right medial TMA ulcer -Time 08:45 -Correct Patient Yes -Correct Side, Site, Position Yes -Correct Procedure Yes -Procedure Performed Yes -Type of Procedure Debridement -Clinical Debridement Subcutaneous -Tissue Removed Subcutaneous -Post Debridement (cm) - Length 0.4 -Post Debridement (cm) - Width 0.8 -Post Debridement (cm) - Depth 0.5 -Total Square (Post) (cm) 0.32 -Area of Debridement (cm) - Length 0.4 -Area of Debridement (cm) - Width 0.8 -Total Square (Area) (cm) 0.32 -Tunneling No -Undermining/Tunneling No -Circular Undermining No -Wound/Ulcer Outcome Not Healed -Ulcer Cleansing Rinsed/ Irrigated with Saline -Foul Odor after Cleansing No -Bioengineered Tissue No -Bleeding Controlled with Pressure -Treatment Response Procedure Tolerated Well -Offloading -Type of Offloading -Debridement - Subq, 1st 20sq cm Yes -Debridement - Muscle / Fascia, 1st 20sq cm #4 right heel -Time 08:45 -Correct Patient Yes -Correct Side, Site, Position Yes -Correct Procedure -Procedure Performed No -Type of Procedure -Clinical Debridement -Tissue Removed -Post Debridement (cm) - Length -Post Debridement (cm) - Width -Post Debridement (cm) - Depth -Total Square (Post) (cm) -Area of Debridement (cm) - Length -Area of Debridement (cm) - Width -Total Square (Area) (cm) -Tunneling No -Undermining/Tunneling No -Circular Undermining No -Wound/Ulcer Outcome Not Healed -Ulcer Cleansing -Foul Odor after Cleansing -Bioengineered Tissue -Type of Bioengineered Tissue -Expiration Date -Product Lot Number -Percent Used -Lot number of Saline Used -Bleeding Controlled with -Treatment Response -Offloading -Type of Offloading -Debridement - Subq, 1st 20sq cm -Apply Skin Sub - 1st 25 sq cm - Feet -Epifix 18mm Disc Application 1-4 Pain Scale: 0-10 Numeric Is Patient Pain Free? Yes WC - Nurse 3 - General Ulcer D/C NN Start: 12/19/24 08:43 Freq: Status: Active Protocol: Activity Type Activity Date Activity User E-sign Co-sign Detail Recorded Client Recorded Date Recorded By Document 12/19/24 09:09 KW [id number] 12/19/24 09:09 KW Document 12/26/24 09:10 DS [id number] 12/26/24 09:17 DS Document 01/02/25 09:03 GM [id number] 01/02/25 09:04 GM Document 01/09/25 08:49 KW [id number] 01/09/25 08:50 KW 12/19/24 12/26/24 01/02/25 09:09 09:10 09:03 Wound Care Center Nurse 3 right lateral TMA -Ulcer Cleansing Not Cleansed -Foul Odor after Cleansing No -Primary Dressing Applied Promogran Promogran Araceli Matter Araceli Matter -Other Dressing conforming bandage -Primary Dressing Covered/Secured with Dry Gauze, Dry Gauze & Secured with Roll Gauze, Tape Secured with Tape -Promogran Araceli Matter 1 1 right medial TMA ulcer -Ulcer Cleansing Not Cleansed -Primary Dressing Applied Promogran Araceli Matter -Other Dressing nurse hat -Primary Dressing Covered/Secured with Dry Gauze Dry Gauze & Dry Gauze Roll Gauze, Secured with Tape -Promogran Araceli Matter 1 #4 right heel -Other Dressing epifix -Primary Dressing Covered/Secured with Dry Gauze & Dry Gauze, Dry Gauze,Other Roll Gauze, Secured with Secured with Tape Tape -Other Covering abd pad RLE -Tubular Bandage Single Layer Single Layer -Size of Tubigrip Used Size D Size D -Size D ($) 1 1 Pain Scale: 0-10 Numeric Is Patient Pain Free? Yes Yes Yes WC - Visit Discharge Discharge Condition Stable Stable Stable Ambulatory Status Ambulatory, Ambulatory, Walker Walker Transportation Private Auto Private Auto Private Auto Medication Reconcilliation completed & No provided to patient/care provider Clinical Summary of Care Provided Yes 01/09/25 08:49 Wound Care Center Nurse 3 right lateral TMA -Ulcer Cleansing -Foul Odor after Cleansing -Primary Dressing Applied Promogran Araceli Matter -Other Dressing -Primary Dressing Covered/Secured with Dry Gauze -Promogran Araceli Matter 1 right medial TMA ulcer -Ulcer Cleansing -Primary Dressing Applied -Other Dressing araceli -Primary Dressing Covered/Secured with Dry Gauze -Promogran Araceli Matter #4 right heel -Other Dressing -Primary Dressing Covered/Secured with Dry Gauze & Roll Gauze, Secured with Tape -Other Covering RLE -Tubular Bandage Single Layer -Size of Tubigrip Used Size D -Size D ($) 1 Pain Scale: 0-10 Numeric Is Patient Pain Free? 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 All findings were discussed with the patient. All questions were answered to the patient's satisfaction. Excisional debridement down to including subcutaneous tissue to the right lateral TMA full-thickness ulcer with a number 3 mm dermal curette without incident. Predebridement measurement was callus. Postdebridement measurement is 0.7 x 0.4 x 0.8 cm. Excisional debridement down to and including subcutaneous tissue to the right medial TM a full-thickness ulcer with a number 3 mm dermal curette without incident. Predebridement measurement was eschar. Postdebridement measurement is 0.4 x 0.8 x 0.5 cm Medial lateral wound to the TMA site were flushed with copious normal saline. The areas were dressed as white Araceli, the right heel amnio skin graft will remain clean dry and intact. Patient will have every other day dressing changes performed by home health care. Educated patient on smoking cessation. Educate the patient on strict blood sugar control between 100 to 150 mg/dL. If the patient shows delayed healing especially to the lateral aspect of the right TMA wound will recommend MRI for possible surgical planning. Follow-up in 1 week (2) Non-pressure chronic ulcer of right heel and midfoot with fat layer exposed: CODE(S): L97.412 - Non-pressure chronic ulcer of right heel and midfoot with fat layer exposed (3) Non-pressure chronic ulcer of other part of right foot with fat layer exposed: CODE(S): L97.512 - Non-pressure chronic ulcer of other part of right foot with fat layer exposed
--- NOTE | 2025-01-09 09:20 | NURSING ---
when pt was in the lobby to check out. a bug was noted on his shirt. the bug was caught and examined and it was a bed bug. pt does have a history of bed bugs. Dr. Lyons was informed and per him the pt needs to get the bed bugs taken care of before he comes back to the wound center. The pt was still in lobby and this RN went to talk with the pt to inform him of the bed bug and the instruction from Dr. Lyons. pt understands and states that he will go home and clean. the room was closed and taped off with EVS being called.
--- NOTE | 2025-01-10 09:50 | WC ---
PHOTO 01/09/25 RIGHT LAT [facility]
--- NOTE | 2025-01-10 09:57 | WC ---
PHOTO 01/09/25 RIGHT [facility]
--- NOTE | 2025-01-10 10:07 | WC ---
PHOTO 01/09/25 RIGHT HEEL
== END 2025-01-14 23:59 | disposition home or self-care (01) ==
LOC: WC 08:45
PROVIDERS: PCP Family Medicine Geriatric Medicine; Referring Provider Podiatrist Foot & Ankle Surgery; Visit Provider Podiatrist Foot & Ankle Surgery
DX: E11.622 Type 2 diabetes mellitus with other skin ulcer (principal); L97.516 Non-pressure chronic ulcer of other part of right foot with bone involvement without evidence of necrosis; L97.412 Non-pressure chronic ulcer of right heel and midfoot with fat layer exposed; L97.512 Non-pressure chronic ulcer of other part of right foot with fat layer exposed; F17.200 Nicotine dependence, unspecified, uncomplicated
CPT/HCPCS: 11042; 11043; 11044; 15275; Q4186

== ENCOUNTER 2025-02-13 15:00 | Outpatient (RCR) | payer MEDICARE, MEDICAID, SELFPAY ==
--- NOTE | 2025-01-15 13:40 | WC ---
I have attempted to contact patient 4 times today to discuss bedbug issue and patient has not answered his phone nor does he have voicemail that is set up. Agricultural Commodities Inspector has also called with no response. Patient has an appt tomorrow with Dr Lyons and a follow up on where patient was at for bed bug treatment needed to be discussed. Will follow up tomorrow on whether this has been addressed.
[2025-01-16 09:29] VITALS: BP 103/57; PULSE 84; RESP 16; TEMP 36.4
--- NOTE | 2025-01-16 12:32 | PCM.WC.PN ---
History of Present Illness Date of Service: 01/16/25 Chief Complaint: Ulcer right foot History of Wound: Stable full-thickness wound right foot slow to heal Progress of Wound: Stable healing wounds to right lower extremity. Subjective Subjective Patient is a 74-year-old diabetic male presented wound care center today for follow-up evaluation of right lower extremity transmetatarsal medial lateral ulceration as well as right heel wound. Patient has been compliant with dressing changes and has been doing themselves. He admits improvement to the heel and states that it has healed over. He still notices breakdown of skin to the medial side of the TMA site as well as callus and healing to the lateral side of the TMA site. Patient states that that he has been treated for his bedbugs and everything should be okay at this time. He denies any trauma. He still smokes. Blood sugars well-controlled. No other pedal complaints at this time. Objective Data Objective Data Vital Signs: Vital Signs Temp Pulse Resp BP O2 Del Method 97.5 F L 84 16 103/57 L Room Air 01/16/25 09:29 01/16/25 09:29 01/16/25 09:29 01/16/25 09:29 01/16/25 09:29 Oxygen Delivery Method Room Air Physical Exam Narrative Vascular: DP and PT pulses are palpable to the right lower extremity. CFT is brisk to the flap to the right foot. Skin temperature great is warm to warm from proximal ankles to distal digits. Neurological: Light touch intact. Patient does not respond to painful stimuli. Dermatological: Full-thickness wound to the medial aspect of the right transmetatarsal amputation site measuring 0.8 x 0.3 x 0.5 cm. Right lateral transmetatarsal amputation site full-thickness wound measures 0.6 x 0.5 x 0.7 cm. Positive probe to bone. No sign of infection. Amniotic skin graft appreciated to the right heel intact. The right heel shows evidence of partial thickness wound measuring 0.1 x 0.1 x 0.1 cm. No sign of infection. Excisional debridement down to including subcutaneous tissue fascia and muscle and bone to the right lateral TMA full-thickness ulcer with a number 3 mm dermal curette without incident. Predebridement measurement was callus. Postdebridement measurement is 0.6 x 0.5 x 0.7 cm. Excisional debridement down to and including subcutaneous tissue, fascia and muscle to the right medial TMA full-thickness ulcer with a number 3 mm dermal curette without incident. Predebridement measurement was eschar. Postdebridement measurement is 0.8 x 0.3 x 0.5 cm. Musculoskeletal. Muscle strength is 5 out of 5 in all quadrants to the right lower extremity. No pain to palpation to the full-thickness wounds to the right lower extremity. No pain with calf pressure. Debridement Note Debridement Note Debridement Free Text: Excisional debridement down to including subcutaneous tissue fascia and muscle and bone to the right lateral TMA full-thickness ulcer with a number 3 mm dermal curette without incident. Predebridement measurement was callus. Postdebridement measurement is 0.6 x 0.5 x 0.7 cm. Excisional debridement down to and including subcutaneous tissue, fascia and muscle to the right medial TMA full-thickness ulcer with a number 3 mm dermal curette without incident. Predebridement measurement was eschar. Postdebridement measurement is 0.8 x 0.3 x 0.5 cm. 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 Any new allergies or adverse reactions No Had a fall/change in ADL's that may No increase risk of falls Signs or symptoms of abuse and/or No neglect since last visit Have you been in the hospital since your No last visit? Has dressing in place as prescribed Yes Has compression in place as prescribed N/A Has offloadiing in place as prescribed Yes Experienced any changes in pain level or No management Right Footwear Surgical Shoe with pressure relief insole Pain Scale: 0-10 Numeric Is Patient Pain Free? Yes WC - Nurse 1 - General Ulcer Measurement Start: 01/16/25 09:19 Freq: Status: Active Protocol: Activity Type Activity Date Activity User E-sign Co-sign Detail Recorded Client Recorded Date Recorded By Document 01/16/25 09:20 [id number] 01/16/25 09:28 01/16/25 09:20 Wound Center Nurse 1 right lateral TMA -Combined with other wound No -Current Size (cm) - Length 0.3 -Current Size (cm) - Width 1.0 -Current Size (cm) - Depth 1.0 -Total Square Cm 0.30 -Date of Last Picture (Recall this 01/16/25 field) -Photo Taken Yes -Epithelialization Small 1-33% -Tunneling No -Undermining/Tunneling No -Circular Undermining No -Exudate Amt Small -Wound Margin Distinct, Outline Attached -Granulation Amt Small (1-33%) -Slough/Fibrin Yes -Necrosis Amt Small (1-33%) -Texture (Donna-wound Skin Appearance) Assessed -Moisture (Donna-wound Skin Appearance) Assessed -Color (Donna-wound Skin Appearance) Assessed right medial TMA ulcer -Current Size (cm) - Length 0.4 -Current Size (cm) - Width 0.5 -Current Size (cm) - Depth 0.4 -Total Square Cm 0.20 -Date of Last Picture (Recall this 01/16/25 field) -Photo Taken Yes -Epithelialization Small 1-33% -Tunneling No -Undermining/Tunneling No -Circular Undermining No -Exudate Amt Small -Exudate Type Serosanguineous -Wound Margin Distinct, Outline Attached -Granulation Amt Small (1-33%) -Granulation Quality [place] -Slough/Fibrin Yes -Necrotic Tissue Type Adherent Slough -Texture (Donna-wound Skin Appearance) Assessed -Moisture (Donna-wound Skin Appearance) Assessed -Color (Donna-wound Skin Appearance) Assessed -Temperature (Donna-wound Skin No Abnormality Appearance) (Pt Warm) -Tenderness on Palpation (Donna-wound No Skin Appearance) -Ulcer Cleansing Soap and Water -Foul Odor after Cleansing No -Anesthetic Used 5% Lidocaine Gel #4 right heel -Current Size (cm) - Length 0.1 -Current Size (cm) - Width 0.1 -Current Size (cm) - Depth 0.1 -Total Square Cm 0.01 -Date of Last Picture (Recall this 01/16/25 field) -Photo Taken Yes -Epithelialization Large 67-100% -Tunneling No -Undermining/Tunneling No -Circular Undermining No -Exudate Amt None Present -Texture (Donna-wound Skin Appearance) Assessed -Moisture (Donna-wound Skin Appearance) Assessed -Color (Donna-wound Skin Appearance) Assessed -Temperature (Donna-wound Skin No Abnormality Appearance) (Pt Warm) -Ulcer Cleansing Soap and Water -Foul Odor after Cleansing No -Anesthetic Used 5% Lidocaine Gel WC - Nurse 2 - General Ulcer CM Notes Start: 01/16/25 09:19 Freq: Status: Active Protocol: Activity Type Activity Date Activity User E-sign Co-sign Detail Recorded Client Recorded Date Recorded By Document 01/16/25 10:06 NESS [id number] 01/16/25 10:09 NESS 01/16/25 10:06 Wound Center Nurse 2 right lateral TMA -Time 10:08 -Correct Patient Yes -Correct Side, Site, Position Yes -Correct Procedure Yes -Procedure Performed Yes -Type of Procedure Debridement -Clinical Debridement Bone -Tissue Removed Non-viable tissue -Post Debridement (cm) - Length 0.6 -Post Debridement (cm) - Width 0.5 -Post Debridement (cm) - Depth 0.7 -Total Square (Post) (cm) 0.30 -Area of Debridement (cm) - Length 0.6 -Area of Debridement (cm) - Width 0.5 -Total Square (Area) (cm) 0.30 -Tunneling No -Undermining/Tunneling No -Circular Undermining No -Wound/Ulcer Outcome Not Healed -Ulcer Cleansing Rinsed/ Irrigated with Saline -Foul Odor after Cleansing No -Bioengineered Tissue No -Bleeding Controlled with Pressure -Treatment Response Procedure Tolerated Well -Offloading Yes -Type of Offloading Surgical Shoe -Debridement - Bone, 1st 20sq cm Yes right medial TMA ulcer -Time 10:08 -Correct Patient Yes -Correct Side, Site, Position Yes -Correct Procedure Yes -Procedure Performed Yes -Type of Procedure Debridement -Clinical Debridement Muscle / Fascia -Tissue Removed Muscle -Post Debridement (cm) - Length 0.8 -Post Debridement (cm) - Width 0.3 -Post Debridement (cm) - Depth 0.5 -Total Square (Post) (cm) 0.24 -Area of Debridement (cm) - Length 0.8 -Area of Debridement (cm) - Width 0.3 -Total Square (Area) (cm) 0.24 -Tunneling No -Undermining/Tunneling No -Circular Undermining No -Wound/Ulcer Outcome Not Healed -Ulcer Cleansing Rinsed/ Irrigated with Saline -Foul Odor after Cleansing No -Bioengineered Tissue No -Bleeding Controlled with Pressure -Treatment Response Procedure Tolerated Well -Offloading Yes -Type of Offloading Surgical Shoe -Debridement - Muscle / Fascia, 1st Yes 20sq cm #4 right heel -Correct Patient Yes -Correct Side, Site, Position No -Correct Procedure No -Procedure Performed No -Wound/Ulcer Outcome Not Healed Pain Scale: 0-10 Numeric Is Patient Pain Free? Yes - Nurse 3 - General Ulcer D/C NN Start: 01/16/25 09:19 Freq: Status: Active Protocol: Activity Type Activity Date Activity User E-sign Co-sign Detail Recorded Client Recorded Date Recorded By Document 01/16/25 11:29 [id number] 01/16/25 11:31 GM 01/16/25 11:29 Wound Care Center Nurse 3 right lateral TMA -Ulcer Cleansing Not Cleansed -Foul Odor after Cleansing No -Primary Dressing Applied Promogran Araceli Matter -Primary Dressing Covered/Secured with Dry Gauze & Roll Gauze, Secured with Tape -Promogran Araceli Matter 1 right medial TMA ulcer -Ulcer Cleansing Not Cleansed -Primary Dressing Covered/Secured with Dry Gauze #4 right heel -Ulcer Cleansing Not Cleansed -Foul Odor after Cleansing No -Primary Dressing Covered/Secured with Dry Gauze LLE -Lotion applied to leg before No compression wrap -Tubular Bandage Single Layer -Size of Tubigrip Used Size D -Size D ($) 1 Pain Scale: 0-10 Numeric Is Patient Pain Free? 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 All findings were discussed with the patient. All questions were answered to the patient's satisfaction. Excisional debridement down to including subcutaneous tissue fascia and muscle and bone to the right lateral TMA full-thickness ulcer with a number 3 mm dermal curette without incident. Predebridement measurement was callus. Postdebridement measurement is 0.6 x 0.5 x 0.7 cm. Excisional debridement down to and including subcutaneous tissue, fascia and muscle to the right medial TMA full-thickness ulcer with a number 3 mm dermal curette without incident. Predebridement measurement was eschar. Postdebridement measurement is 0.8 x 0.3 x 0.5 cm. The right lower extremity was wiped clean and patted dry. Moist Araceli was applied to both full-thickness wounds to the medial and lateral aspect of the TMA site. Dry sterile dressing will be applied to the left heel followed by dry sterile dressing to the TMA site followed by light compression wrap. Patient will perform every other day dressing changes. Patient will continue strict blood sugar control. Patient will continue to refrain from smoking the best that he can. I educated the patient that if he continues to smoke and has delayed healing he is at great risk for continued skin breakdown and delayed healing which he was understanding of. During today's visit the patient shows evidence of a bedbug in his surgical shoe. We educated the patient that he will need to be cleaned as well as has his house clean before he follows up for his next appointment as of right now the patient will be scheduled for the last appointment of the day moving forward. Follow-up at the wound care center with Dr. Lyons in 2 week. (2) Non-pressure chronic ulcer of right heel and midfoot with fat layer exposed: CODE(S): L97.412 - Non-pressure chronic ulcer of right heel and midfoot with fat layer exposed (3) Non-pressure chronic ulcer of other part of right foot with necrosis of muscle: CODE(S): L97.513 - Non-pressure chronic ulcer of other part of right foot with necrosis of muscle
--- NOTE | 2025-01-16 15:13 | WC ---
PHOTO 01/16/25 RIGHT LATERAL
--- NOTE | 2025-01-16 15:17 | WC ---
PHOTO 01/16/25 RIGHT [facility]
--- NOTE | 2025-01-16 15:22 | WC ---
PHOTO 01/16/25 RIGHT HEEL
[2025-01-30 14:37] VITALS: BP 166/69; PULSE 92; RESP 18; TEMP 36.4
--- NOTE | 2025-01-31 14:58 | WC ---
PHOTO 01/30/25 RIGHT HEEL
--- NOTE | 2025-01-31 14:59 | WC ---
PHOTO 01/30/25 RIGHT [facility]
--- NOTE | 2025-01-31 15:00 | WC ---
PHOTO RIGHT [facility]MA LATERAL 01/30/25
--- NOTE | 2025-02-02 00:49 | PCM.WC.PN ---
History of Present Illness Date of Service: 01/30/25 Chief Complaint: Ulcer right foot History of Wound: Stable full-thickness wound right foot slow to heal Progress of Wound: Stable healing wounds to right lower extremity. Subjective Subjective Patient is a 74-year-old diabetic male presenting to wound care center follow-up evaluation of right foot transmetatarsal amputation full-thickness wound to the medial and lateral side as well as full-thickness wound to the Achilles tendon/heel area. Patient states that the heel area is not 100% healed. His blood sugars well-controlled. He is doing dressing changes himself every other day. He denies trauma or drainage. Denies constitutional symptoms. No other pedal complaints at this time. Objective Data Objective Data Vital Signs: Vital Signs Temp Pulse Resp BP O2 Del Method 97.6 F L 92 18 166/69 H Room Air 01/30/25 14:37 01/30/25 14:37 01/30/25 14:37 01/30/25 14:37 01/16/25 09:29 Oxygen Delivery Method Room Air Physical Exam Narrative Vascular: DP and PT pulses are palpable to the right lower extremity. CFT is brisk to the flap to the right foot. Skin temperature great is warm to warm from proximal ankles to distal digits. Neurological: Light touch intact. Patient does not respond to painful stimuli. Dermatological: Full-thickness wound to the medial aspect of the right transmetatarsal amputation site measuring 0.8 x 0.3 x 0.5 cm. Right lateral transmetatarsal amputation site full-thickness wound measures 0.5 x 0.4 x 0.8 cm. Positive probe to bone. No sign of infection. The right heel full-thickness wound shows evidence sanguinous crusting now healed. Excisional debridement down to including subcutaneous tissue fascia and muscle and bone to the right lateral TMA full-thickness ulcer with a number 3 mm dermal curette without incident. Predebridement measurement was callus. Postdebridement measurement is 0.5 x 0.4 x 0.8 cm. Excisional debridement down to and including subcutaneous tissue to the right medial TMA full-thickness ulcer with a number 3 mm dermal curette without incident. Predebridement measurement was 7.0 x 0.1 x 0.2 cm. Postdebridement measurement is 0.8 x 0.3 x 0.5 cm. Musculoskeletal. Muscle strength is 5 out of 5 in all quadrants to the right lower extremity. No pain to palpation to the full-thickness wounds to the right lower extremity. No pain with calf pressure. Debridement Note Debridement Note Debridement Free Text: Excisional debridement down to including subcutaneous tissue fascia and muscle and bone to the right lateral TMA full-thickness ulcer with a number 3 mm dermal curette without incident. Predebridement measurement was callus. Postdebridement measurement is 0.5 x 0.4 x 0.8 cm. Excisional debridement down to and including subcutaneous tissue to the right medial TMA full-thickness ulcer with a number 3 mm dermal curette without incident. Predebridement measurement was 7.0 x 0.1 x 0.2 cm. Postdebridement measurement is 0.8 x 0.3 x 0.5 cm. Post-Debridement Measurements and Additional Note: Post-Debridement Measurements/Treatment - Nurse 1 - General Ulcer Assessment Start: 01/16/25 09:19 Freq: Status: Active Protocol: YOCASTA Activity Type Activity Date Activity User E-sign Co-sign Detail Recorded Client Recorded Date Recorded By Document 01/16/25 09:29 GM [id number] 01/16/25 09:33 GM Document 01/30/25 14:37 DL [id number] 01/30/25 14:49 DL 01/16/25 01/30/25 09:29 14:37 - Today's Visit Information Type of service Follow-up Visit Follow-up Visit (Physician/JOB FORWARDER (Physician/JOB FORWARDER ) ) Arrival Mode Ambulatory, Ambulatory, Walker Walker Transfer Assistance None None Patient Identification Verified (Name & Yes Yes ) Patient Requires Transmission-Based No Precautions Vital Signs Temperature (97.8 F-99.1 F) 97.5 F L 97.6 F L Temperature Source Temporal Temporal Pulse Rate (60-100) 84 92 Pulse Location Monitor Monitor Respiratory Rate (12-18) 16 18 Respiratory rate source Observation Observation Oxygen Delivery Method Room Air Blood Pressure (90/60-120/80) 103/57 L 166/69 H Blood Pressure Mean (mm Hg) 72 101 Source Monitor Monitor Position Semi-Fowlers Blood Pressure Location Left Arm History Since Last Visit- (Skip if this is Patient's initial visit) Have you changed medications since your No No last visit? Any new allergies or adverse reactions No No Had a fall/change in ADL's that may No No increase risk of falls Signs or symptoms of abuse and/or No No neglect since last visit Have you been in the hospital since your No No last visit? Has dressing in place as prescribed Yes No Has compression in place as prescribed N/A Yes Has offloadiing in place as prescribed Yes Yes Experienced any changes in pain level or No No management Right Footwear Surgical Shoe with pressure relief insole Pain Scale: 0-10 Numeric Is Patient Pain Free? Yes Yes WC - Nurse 1 - General Ulcer Measurement Start: 01/16/25 09:19 Freq: Status: Active Protocol: Activity Type Activity Date Activity User E-sign Co-sign Detail Recorded Client Recorded Date Recorded By Document 01/16/25 09:20 GM [id number] 01/16/25 09:28 GM Document 01/30/25 14:37 DL [id number] 01/30/25 14:49 DL 01/16/25 01/30/25 09:20 14:37 Wound Center Nurse 1 #4 right heel -Current Size (cm) - Length 0.1 0.1 -Current Size (cm) - Width 0.1 0.1 -Current Size (cm) - Depth 0.1 0.1 -Total Square Cm 0.01 0.01 -Date of Last Picture (Recall this 01/16/25 field) -Photo Taken Yes Yes -Epithelialization Large 67-100% -Tunneling No -Undermining/Tunneling No -Circular Undermining No -Exudate Amt None Present None Present -Wound Margin Thickened -Granulation Amt None Present (0 %) -Necrosis Amt Large (67-100%) -Necrotic Tissue Type Adherent Slough -Structure Exposed N/A -Texture (Donna-wound Skin Appearance) Assessed Scarring -Moisture (Donna-wound Skin Appearance) Assessed No Abnormality -Color (Donna-wound Skin Appearance) Assessed No Abnormality -Temperature (Donna-wound Skin No Abnormality No Abnormality Appearance) (Pt Warm) (Pt Warm) -Tenderness on Palpation (Donna-wound No Skin Appearance) -Ulcer Cleansing Soap and Water Soap and Water -Foul Odor after Cleansing No No -Anesthetic Used 5% Lidocaine 5% Lidocaine Gel Gel right lateral TMA -Combined with other wound No -Current Size (cm) - Length 0.3 0.3 -Current Size (cm) - Width 1.0 0.3 -Current Size (cm) - Depth 1.0 0.6 -Total Square Cm 0.30 0.09 -Date of Last Picture (Recall this 01/16/25 field) -Photo Taken Yes Yes -Epithelialization Small 1-33% -Tunneling No -Undermining/Tunneling No -Maximum Distance #2 (cm) 0.2 -Circular Undermining No Yes -Exudate Amt Small Small -Exudate Type Serosanguineous -Wound Margin Distinct, Thickened Outline Attached -Granulation Amt Small (1-33%) None Present (0 %) -Slough/Fibrin Yes -Necrosis Amt Small (1-33%) Large (67-100%) -Necrotic Tissue Type Adherent Slough -Structure Exposed N/A -Texture (Donna-wound Skin Appearance) Assessed Scarring -Moisture (Donna-wound Skin Appearance) Assessed Dry/Scaly -Color (Donna-wound Skin Appearance) Assessed No Abnormality -Temperature (Donna-wound Skin No Abnormality Appearance) (Pt Warm) -Tenderness on Palpation (Donna-wound No Skin Appearance) -Ulcer Cleansing Soap and Water -Anesthetic Used 5% Lidocaine Gel right medial TMA ulcer -Current Size (cm) - Length 0.4 0.2 -Current Size (cm) - Width 0.5 0.5 -Current Size (cm) - Depth 0.4 0.3 -Total Square Cm 0.20 0.10 -Date of Last Picture (Recall this 01/16/25 field) -Photo Taken Yes Yes -Epithelialization Small 1-33% -Tunneling No -Undermining/Tunneling No -Circular Undermining No -Exudate Amt Small Small -Exudate Type Serosanguineous Serosanguineous -Wound Margin Distinct, Distinct, Outline Outline Attached Attached -Granulation Amt Small (1-33%) Small (1-33%) -Granulation Quality [place] Pale -Slough/Fibrin Yes -Necrosis Amt Small (1-33%) -Necrotic Tissue Type Adherent Slough Adherent Slough -Structure Exposed N/A -Texture (Donna-wound Skin Appearance) Assessed Scarring -Moisture (Donna-wound Skin Appearance) Assessed Dry/Scaly -Color (Donna-wound Skin Appearance) Assessed No Abnormality -Temperature (Donna-wound Skin No Abnormality No Abnormality Appearance) (Pt Warm) (Pt Warm) -Tenderness on Palpation (Donna-wound No Skin Appearance) -Ulcer Cleansing Soap and Water Soap and Water -Foul Odor after Cleansing No No -Anesthetic Used 5% Lidocaine 5% Lidocaine Gel Gel Right Calf (cm) 30.6 Right Ankle (cm) 19.5 WC - Nurse 2 - General Ulcer CM Notes Start: 01/16/25 09:19 Freq: Status: Active Protocol: Activity Type Activity Date Activity User E-sign Co-sign Detail Recorded Client Recorded Date Recorded By Document 01/16/25 10:06 [id number] 01/16/25 10:09 Document 01/30/25 14:57 [id number] 01/30/25 15:01 01/16/25 01/30/25 10:06 14:57 Wound Center Nurse 2 #4 right heel -Correct Patient Yes Yes -Correct Side, Site, Position No No -Correct Procedure No No -Procedure Performed No No -Post Debridement (cm) - Length 0 -Post Debridement (cm) - Width 0 -Post Debridement (cm) - Depth 0 -Total Square (Post) (cm) 0 -Area of Debridement (cm) - Length 0 -Area of Debridement (cm) - Width 0 -Total Square (Area) (cm) 0 -Wound/Ulcer Outcome Not Healed Healed- Epithelialized right lateral TMA -Time 10:08 14:57 -Correct Patient Yes Yes -Correct Side, Site, Position Yes Yes -Correct Procedure Yes Yes -Procedure Performed Yes Yes -Type of Procedure Debridement Debridement -Clinical Debridement Bone Bone -Tissue Removed Non-viable Non-viable tissue tissue -Post Debridement (cm) - Length 0.6 0.5 -Post Debridement (cm) - Width 0.5 0.4 -Post Debridement (cm) - Depth 0.7 0.8 -Total Square (Post) (cm) 0.30 0.20 -Area of Debridement (cm) - Length 0.6 0.5 -Area of Debridement (cm) - Width 0.5 0.4 -Total Square (Area) (cm) 0.30 0.20 -Tunneling No No -Undermining/Tunneling No No -Circular Undermining No No -Wound/Ulcer Outcome Not Healed Not Healed -Ulcer Cleansing Rinsed/ Rinsed/ Irrigated with Irrigated with Saline Saline -Foul Odor after Cleansing No No -Bioengineered Tissue No No -Bleeding Controlled with Pressure NA -Treatment Response Procedure Procedure Tolerated Well Tolerated Well -Offloading Yes Yes -Type of Offloading Surgical Shoe Surgical Shoe -Debridement - Bone, 1st 20sq cm Yes Yes right medial TMA ulcer -Time 10:08 14:59 -Correct Patient Yes Yes -Correct Side, Site, Position Yes Yes -Correct Procedure Yes Yes -Procedure Performed Yes Yes -Type of Procedure Debridement Debridement -Clinical Debridement Muscle / Fascia Subcutaneous -Tissue Removed Muscle Subcutaneous -Post Debridement (cm) - Length 0.8 0.7 -Post Debridement (cm) - Width 0.3 0.3 -Post Debridement (cm) - Depth 0.5 0.2 -Total Square (Post) (cm) 0.24 0.21 -Area of Debridement (cm) - Length 0.8 0.7 -Area of Debridement (cm) - Width 0.3 0.3 -Total Square (Area) (cm) 0.24 0.21 -Tunneling No No -Undermining/Tunneling No No -Circular Undermining No No -Wound/Ulcer Outcome Not Healed Not Healed -Ulcer Cleansing Rinsed/ Rinsed/ Irrigated with Irrigated with Saline Saline -Foul Odor after Cleansing No No -Bioengineered Tissue No No -Bleeding Controlled with Pressure Pressure -Treatment Response Procedure Procedure Tolerated Well Tolerated Well -Offloading Yes Yes -Type of Offloading Surgical Shoe Surgical Shoe -Debridement - Subq, 1st 20sq cm Yes -Debridement - Muscle / Fascia, 1st Yes 20sq cm Pain Scale: 0-10 Numeric Is Patient Pain Free? Yes Yes - Nurse 3 - General Ulcer D/C NN Start: 01/16/25 09:19 Freq: Status: Active Protocol: Activity Type Activity Date Activity User E-sign Co-sign Detail Recorded Client Recorded Date Recorded By Document 01/16/25 11:29 [id number] 01/16/25 11:31 Document 01/30/25 15:13 [id number] 01/30/25 15:14 KW 01/16/25 01/30/25 11:29 15:13 Wound Care Center Nurse 3 #4 right heel -Ulcer Cleansing Not Cleansed -Foul Odor after Cleansing No -Primary Dressing Covered/Secured with Dry Gauze right lateral TMA -Ulcer Cleansing Not Cleansed -Foul Odor after Cleansing No -Primary Dressing Applied Promogran Araceli Matter -Primary Dressing Covered/Secured with Dry Gauze & Dry Gauze Roll Gauze, Secured with Tape -Promogran Araceli Matter 1 right medial TMA ulcer -Ulcer Cleansing Not Cleansed -Primary Dressing Covered/Secured with Dry Gauze Dry Gauze & Roll Gauze, Secured with Tape LLE -Lotion applied to leg before No compression wrap -Tubular Bandage Single Layer Single Layer -Size of Tubigrip Used Size D Size D -Size D ($) 1 1 Pain Scale: 0-10 Numeric Is Patient Pain Free? 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 All findings were discussed with the patient. All questions were answered to the patient's satisfaction. Excisional debridement down to including subcutaneous tissue fascia and muscle and bone to the right lateral TMA full-thickness ulcer with a number 3 mm dermal curette without incident. Predebridement measurement was callus. Postdebridement measurement is 0.5 x 0.4 x 0.8 cm. Excisional debridement down to and including subcutaneous tissue to the right medial TMA full-thickness ulcer with a number 3 mm dermal curette without incident. Predebridement measurement was 7.0 x 0.1 x 0.2 cm. Postdebridement measurement is 0.8 x 0.3 x 0.5 cm. The right lower extremities were cleaned and patted dry. Araceli was applied to both sides of the TMA site at the level of full-thickness wound followed by dry sterile dressing and compression wrap. Patient will continue every other day dressing changes. Educated the patient continue strict blood sugar control. Continue to educate the patient about smoking cessation as this is most likely delaying his healing which she was understanding of. Patient states that I will be hard for him to quit smoking as he has been smoking for a long period of time. I did discuss with the patient that if his wounds continue to fail we will have to move forward with either some type of vascular intervention or take the patient back to the operating room to perform surgical debridement with graft application which she was understanding of. Follow-up at the wound care center with Dr. Lyons in 2 week. (2) Non-pressure chronic ulcer of other part of right foot with fat layer exposed: CODE(S): L97.512 - Non-pressure chronic ulcer of other part of right foot with fat layer exposed
[2025-02-13 14:45] VITALS: BP 136/64; PULSE 84; RESP 18; TEMP 36.8
--- NOTE | 2025-02-14 14:48 | PN.PCM_ITS ---
History of Present Illness Date of Service: 02/13/25 Chief Complaint: Ulcer right foot History of Wound: Stable full-thickness wound right foot slow to heal Progress of Wound: Stable healing wounds to right lower extremity. Subjective Subjective Patient is a 74-year-old diabetic male presenting to wound care center for follow-up with relation of full-thickness wound to the medial lateral aspect of TMA site. Patient's heel wound is completely healed over. He has no concerns or issues with breakdown of skin at this point. He has been partial weightbearing in surgical shoe with assistance of walker. Blood sugar well- controlled. He has decreased his smoking. Denies trauma. Denies constitutional symptoms. No other pedal complaints at this time. Objective Data Objective Data Vital Signs: Vital Signs Temp Pulse Resp BP O2 Del Method 98.2 F 84 18 136/64 H Room Air 02/13/25 14:45 02/13/25 14:45 02/13/25 14:45 02/13/25 14:45 02/13/25 14:45 Oxygen Delivery Method Room Air Physical Exam Narrative Vascular: DP and PT pulses are palpable to the right lower extremity. CFT is brisk to the flap to the right foot. Skin temperature great is warm to warm from proximal ankles to distal digits. Neurological: Light touch intact. Patient does not respond to painful stimuli. Dermatological: Full-thickness wound to the medial aspect of the right transmetatarsal amputation site measuring 0.8 x 0.4 x 0.4 cm. Right lateral tra nsmetatarsal amputation site full-thickness wound measures 0.4 x 0.4 x 0.4 cm. Negative probe to bone on both wounds at this time. Excisional debridement down to including subcutaneous tissue fascia and muscle to the right lateral TMA full-thickness ulcer with a number 3 mm dermal curette without incident. Predebridement measurement was callus. Postdebridement measurement is 0.4 x 0.4 x 0.4 cm. Excisional debridement down to and including subcutaneous tissue fascia and muscle to the right medial TMA full-thickness ulcer with a number 3 mm dermal curette without incident. Predebridement measurement was sanguinous crust. Postdebridement measurement is 0.8 x 0.4 x 0.4 cm. Musculoskeletal. No pain to palpation to the full-thickness wounds to the right lower extremity. No pain with calf pressure. Debridement Note Debridement Note Debridement Free Text: Excisional debridement down to including subcutaneous tissue fascia and muscle to the right lateral TMA full-thickness ulcer with a number 3 mm dermal curette without incident. Predebridement measurement was callus. Postdebridement measurement is 0.4 x 0.4 x 0.4 cm. Excisional debridement down to and including subcutaneous tissue fascia and muscle to the right medial TMA full-thickness ulcer with a number 3 mm dermal curette without incident. Predebridement measurement was sanguinous crust. Postdebridement measurement is 0.8 x 0.4 x 0.4 cm. Post-Debridement Measurements and Additional Note: Post-Debridement Measurements/Treatment - Nurse 1 - General Ulcer Assessment Start: 01/16/25 09:19 Freq: Status: Active Protocol: YOCASTA Activity Type Activity Date Activity User E-sign Co-sign Detail Recorded Client Recorded Date Recorded By Document 01/16/25 09:29 GM [id number] 01/16/25 09:33 GM Document 01/30/25 14:37 DL [id number] 01/30/25 14:49 DL Document 02/13/25 14:45 GM [id number] 02/13/25 14:50 GM 01/16/25 01/30/25 02/13/25 09:29 14:37 14:45 - Today's Visit Information Type of service Follow-up Visit Follow-up Visit Follow-up Visit (Physician/COMPUTATOR (Physician/COMPUTATOR (Physician/COMPUTATOR ) ) ) Arrival Mode Ambulatory, Ambulatory, Ambulatory, Walker Walker Walker Transfer Assistance None None None Patient Identification Verified (Name & Yes Yes Yes ) Patient Requires Transmission-Based No No Precautions Vital Signs Temperature (97.8 F-99.1 F) 97.5 F L 97.6 F L 98.2 F Temperature Source Temporal Temporal Temporal Pulse Rate (60-100) 84 92 84 Pulse Location Monitor Monitor Monitor Respiratory Rate (12-18) 16 18 18 Respiratory rate source Observation Observation Observation Oxygen Delivery Method Room Air Room Air Blood Pressure (90/60-120/80) 103/57 L 166/69 H 136/64 H Blood Pressure Mean (mm Hg) 72 101 88 Source Monitor Monitor Monitor Position Semi-Fowlers Sitting Blood Pressure Location Left Arm Left Arm History Since Last Visit- (Skip if this is Patient's initial visit) Have you changed medications since your No No No last visit? Any new allergies or adverse reactions No No No Had a fall/change in ADL's that may No No No increase risk of falls Signs or symptoms of abuse and/or No No No neglect since last visit Have you been in the hospital since your No No No last visit? Has dressing in place as prescribed Yes No Yes Has compression in place as prescribed N/A Yes Yes Has offloadiing in place as prescribed Yes Yes Yes Experienced any changes in pain level or No No No management Left Footwear Slipper Right Footwear Surgical Shoe Surgical Shoe with pressure with pressure relief insole relief insole Pain Scale: 0-10 Numeric Is Patient Pain Free? Yes Yes Yes WC - Nurse 1 - General Ulcer Measurement Start: 01/16/25 09:19 Freq: Status: Active Protocol: Activity Type Activity Date Activity User E-sign Co-sign Detail Recorded Client Recorded Date Recorded By Document 01/16/25 09:20 GM [id number] 01/16/25 09:28 GM Document 01/30/25 14:37 DL [id number] 01/30/25 14:49 DL Document 02/13/25 14:45 GM [id number] 02/13/25 14:50 GM 01/16/25 01/30/25 02/13/25 09:20 14:37 14:45 Wound Center Nurse 1 #4 right heel -Current Size (cm) - Length 0.1 0.1 -Current Size (cm) - Width 0.1 0.1 -Current Size (cm) - Depth 0.1 0.1 -Total Square Cm 0.01 0.01 -Date of Last Picture (Recall this 01/16/25 field) -Photo Taken Yes Yes -Epithelialization Large 67-100% -Tunneling No -Undermining/Tunneling No -Circular Undermining No -Exudate Amt None Present None Present -Wound Margin Thickened -Granulation Amt None Present (0 %) -Necrosis Amt Large (67-100%) -Necrotic Tissue Type Adherent Slough -Structure Exposed N/A -Texture (Donna-wound Skin Appearance) Assessed Scarring -Moisture (Donna-wound Skin Appearance) Assessed No Abnormality -Color (Donna-wound Skin Appearance) Assessed No Abnormality -Temperature (Donna-wound Skin No Abnormality No Abnormality Appearance) (Pt Warm) (Pt Warm) -Tenderness on Palpation (Donna-wound No Skin Appearance) -Ulcer Cleansing Soap and Water Soap and Water -Foul Odor after Cleansing No No -Anesthetic Used 5% Lidocaine 5% Lidocaine Gel Gel right lateral TMA -Combined with other wound No -Current Size (cm) - Length 0.3 0.3 0.3 -Current Size (cm) - Width 1.0 0.3 0.3 -Current Size (cm) - Depth 1.0 0.6 0.5 -Total Square Cm 0.30 0.09 0.09 -Date of Last Picture (Recall this 01/16/25 field) -Photo Taken Yes Yes No -Epithelialization Small 1-33% None Present -Tunneling No No -Undermining/Tunneling No No -Maximum Distance #2 (cm) 0.2 -Circular Undermining No Yes No -Exudate Amt Small Small Medium -Exudate Type Serosanguineous Yellow/Green -Wound Margin Distinct, Thickened Distinct, Outline Outline Attached Attached -Granulation Amt Small (1-33%) None Present (0 Small (1-33%) %) -Slough/Fibrin Yes Yes -Necrosis Amt Small (1-33%) Large (67-100%) Medium (34-66%) -Necrotic Tissue Type Adherent Slough Adherent Slough -Structure Exposed N/A -Texture (Donna-wound Skin Appearance) Assessed Scarring Assessed,Callus -Moisture (Donna-wound Skin Appearance) Assessed Dry/Scaly Assessed -Color (Donna-wound Skin Appearance) Assessed No Abnormality Assessed -Temperature (Donna-wound Skin No Abnormality No Abnormality Appearance) (Pt Warm) (Pt Warm) -Tenderness on Palpation (Donna-wound No No Skin Appearance) -Ulcer Cleansing Soap and Water Rinsed/ Irrigated with Saline -Foul Odor after Cleansing No -Anesthetic Used 5% Lidocaine 5% Lidocaine Gel Gel right medial TMA ulcer -Current Size (cm) - Length 0.4 0.2 0.8 -Current Size (cm) - Width 0.5 0.5 0.3 -Current Size (cm) - Depth 0.4 0.3 0.4 -Total Square Cm 0.20 0.10 0.24 -Date of Last Picture (Recall this 01/16/25 field) -Photo Taken Yes Yes No -Epithelialization Small 1-33% None Present -Tunneling No No -Undermining/Tunneling No No -Circular Undermining No No -Exudate Amt Small Small -Exudate Type Serosanguineous Serosanguineous -Wound Margin Distinct, Distinct, Distinct, Outline Outline Outline Attached Attached Attached -Granulation Amt Small (1-33%) Small (1-33%) Small (1-33%) -Granulation Quality [place] Pale -Slough/Fibrin Yes Yes -Necrosis Amt Small (1-33%) Medium (34-66%) -Necrotic Tissue Type Adherent Slough Adherent Slough Adherent Slough -Structure Exposed N/A -Texture (Donna-wound Skin Appearance) Assessed Scarring Assessed -Moisture (Donna-wound Skin Appearance) Assessed Dry/Scaly Assessed,Dry/ Scaly -Color (Donna-wound Skin Appearance) Assessed No Abnormality Assessed -Temperature (Donna-wound Skin No Abnormality No Abnormality No Abnormality Appearance) (Pt Warm) (Pt Warm) (Pt Warm) -Tenderness on Palpation (Donna-wound No No Skin Appearance) -Ulcer Cleansing Soap and Water Soap and Water Rinsed/ Irrigated with Saline -Foul Odor after Cleansing No No No -Anesthetic Used 5% Lidocaine 5% Lidocaine 5% Lidocaine Gel Gel Gel Right Calf (cm) 30.6 Right Ankle (cm) 19.5 WC - Nurse 2 - General Ulcer CM Notes Start: 01/16/25 09:19 Freq: Status: Active Protocol: Activity Type Activity Date Activity User E-sign Co-sign Detail Recorded Client Recorded Date Recorded By Document 01/16/25 10:06 [id number] 01/16/25 10:09 Document 01/30/25 14:57 [id number] 01/30/25 15:01 Document 02/13/25 15:18 [id number] 02/13/25 15:23 01/16/25 01/30/25 02/13/25 10:06 14:57 15:18 Wound Center Nurse 2 #4 right heel -Correct Patient Yes Yes -Correct Side, Site, Position No No -Correct Procedure No No -Procedure Performed No No -Post Debridement (cm) - Length 0 -Post Debridement (cm) - Width 0 -Post Debridement (cm) - Depth 0 -Total Square (Post) (cm) 0 -Area of Debridement (cm) - Length 0 -Area of Debridement (cm) - Width 0 -Total Square (Area) (cm) 0 -Wound/Ulcer Outcome Not Healed Healed- Epithelialized right lateral TMA -Time 10:08 14:57 15:22 -Correct Patient Yes Yes Yes -Correct Side, Site, Position Yes Yes Yes -Correct Procedure Yes Yes Yes -Procedure Performed Yes Yes Yes -Type of Procedure Debridement Debridement Debridement -Clinical Debridement Bone Bone Muscle / Fascia -Tissue Removed Non-viable Non-viable Muscle tissue tissue -Post Debridement (cm) - Length 0.6 0.5 0.4 -Post Debridement (cm) - Width 0.5 0.4 0.4 -Post Debridement (cm) - Depth 0.7 0.8 0.4 -Total Square (Post) (cm) 0.30 0.20 0.16 -Area of Debridement (cm) - Length 0.6 0.5 0.4 -Area of Debridement (cm) - Width 0.5 0.4 0.4 -Total Square (Area) (cm) 0.30 0.20 0.16 -Tunneling No No No -Undermining/Tunneling No No No -Circular Undermining No No No -Wound/Ulcer Outcome Not Healed Not Healed Not Healed -Ulcer Cleansing Rinsed/ Rinsed/ Rinsed/ Irrigated with Irrigated with Irrigated with Saline Saline Saline -Foul Odor after Cleansing No No No -Bioengineered Tissue No No No -Bleeding Controlled with Pressure NA Pressure -Treatment Response Procedure Procedure Procedure Tolerated Well Tolerated Well Tolerated Well -Offloading Yes Yes Yes -Type of Offloading Surgical Shoe Surgical Shoe Surgical Shoe -Debridement - Muscle / Fascia, 1st Yes 20sq cm -Debridement - Bone, 1st 20sq cm Yes Yes right medial TMA ulcer -Time 10:08 14:59 15:18 -Correct Patient Yes Yes Yes -Correct Side, Site, Position Yes Yes Yes -Correct Procedure Yes Yes Yes -Procedure Performed Yes Yes Yes -Type of Procedure Debridement Debridement Debridement -Clinical Debridement Muscle / Fascia Subcutaneous Muscle / Fascia -Tissue Removed Muscle Subcutaneous Muscle -Post Debridement (cm) - Length 0.8 0.7 0.8 -Post Debridement (cm) - Width 0.3 0.3 0.4 -Post Debridement (cm) - Depth 0.5 0.2 0.4 -Total Square (Post) (cm) 0.24 0.21 0.32 -Area of Debridement (cm) - Length 0.8 0.7 0.8 -Area of Debridement (cm) - Width 0.3 0.3 0.4 -Total Square (Area) (cm) 0.24 0.21 0.32 -Tunneling No No No -Undermining/Tunneling No No No -Circular Undermining No No No -Wound/Ulcer Outcome Not Healed Not Healed Not Healed -Ulcer Cleansing Rinsed/ Rinsed/ Rinsed/ Irrigated with Irrigated with Irrigated with Saline Saline Saline -Foul Odor after Cleansing No No No -Bioengineered Tissue No No No -Bleeding Controlled with Pressure Pressure Pressure -Treatment Response Procedure Procedure Procedure Tolerated Well Tolerated Well Tolerated Well -Offloading Yes Yes Yes -Type of Offloading Surgical Shoe Surgical Shoe Surgical Shoe -Debridement - Subq, 1st 20sq cm Yes No -Debridement - Muscle / Fascia, 1st Yes No 20sq cm Pain Scale: 0-10 Numeric Is Patient Pain Free? Yes Yes Yes - Nurse 3 - General Ulcer D/C NN Start: 01/16/25 09:19 Freq: Status: Active Protocol: Activity Type Activity Date Activity User E-sign Co-sign Detail Recorded Client Recorded Date Recorded By Document 01/16/25 11:29 [id number] 01/16/25 11:31 Document 01/30/25 15:13 [id number] 01/30/25 15:14 Document 02/13/25 15:25 [facility] [id number] 02/13/25 15:26 [facility] 01/16/25 01/30/25 02/13/25 11:29 15:13 15:25 Wound Care Center Nurse 3 #4 right heel -Ulcer Cleansing Not Cleansed -Foul Odor after Cleansing No -Primary Dressing Covered/Secured with Dry Gauze right lateral TMA -Ulcer Cleansing Not Cleansed Rinsed/ Irrigated with Saline -Foul Odor after Cleansing No No -Primary Dressing Applied Promogran Promogran Araceli Matter Araceli Matter -Other Dressing drsg per kw circulating process inspector -Primary Dressing Covered/Secured with Dry Gauze & Dry Gauze Dry Gauze & Roll Gauze, Roll Gauze, Secured with Secured with Tape Tape -Promogran Araceli Matter 1 1 right medial TMA ulcer -Ulcer Cleansing Not Cleansed Rinsed/ Irrigated with Saline -Foul Odor after Cleansing No -Primary Dressing Applied Promogran Araceli Matter -Other Dressing drsg per kw circulating process inspector -Primary Dressing Covered/Secured with Dry Gauze Dry Gauze & Dry Gauze & Roll Gauze, Roll Gauze, Secured with Secured with Tape Tape -Promogran Araceli Matter 0 LLE -Lotion applied to leg before No compression wrap -Tubular Bandage Single Layer Single Layer Single Layer -Size of Tubigrip Used Size D Size D Size D -Size D ($) 1 1 1 Treatment Response Procedure Tolerated Well Pain Scale: 0-10 Numeric Is Patient Pain Free? 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 All findings were discussed with the patient. All questions were answered to the patient's satisfaction. Excisional debridement down to including subcutaneous tissue fascia and muscle to the right lateral TMA full-thickness ulcer with a number 3 mm dermal curette without incident. Predebridement measurement was callus. Postdebridement measurement is 0.4 x 0.4 x 0.4 cm. Excisional debridement down to and including subcutaneous tissue fascia and muscle to the right medial TMA full-thickness ulcer with a number 3 mm dermal curette without incident. Predebridement measurement was sanguinous crust. Postdebridement measurement is 0.8 x 0.4 x 0.4 cm. The left lower extremity is like cleaned and patted dry. Moist Araceli followed by dry sterile dressing compression wrap was applied. Patient will continue every other day dressing changes. Educated the patient to be partial weightbearing with surgical shoe and walker. Educate the patient continue strict blood sugar control. Educated the patient about smoking sensation which she is understanding of. Follow-up at the wound care center with Dr. Lyons in 2 week.
== END 2025-02-14 23:59 | disposition home or self-care (01) ==
LOC: WC 15:00
PROVIDERS: PCP Family Medicine Geriatric Medicine; Referring Provider Podiatrist Foot & Ankle Surgery; Visit Provider Podiatrist Foot & Ankle Surgery
DX: L97.513 Non-pressure chronic ulcer of other part of right foot with necrosis of muscle (principal); L97.516 Non-pressure chronic ulcer of other part of right foot with bone involvement without evidence of necrosis; L97.412 Non-pressure chronic ulcer of right heel and midfoot with fat layer exposed; T87.89 Other complications of amputation stump; F17.200 Nicotine dependence, unspecified, uncomplicated; Y83.5 Amputation of limb(s) as the cause of abnormal reaction of the patient, or of later complication, without mention of misadventure at the time of the procedure
CPT/HCPCS: 11042; 11043; 11044

== ENCOUNTER → 2025-02-14 | Outpatient (CLI) | payer MEDICARE, MEDICAID, SELFPAY ==
[2025-02-14 12:06] LABS: Hematocrit 38.1 % (40-54); Hemoglobin 12.3 g/dL (13.0-16.5); Immature Granulocytes Count 0.030 X10^3/uL (0.0-0.0); Mean Corp Hgb Conc 32.3 g/dL (32-36); Mean Corpuscular Volume 96.9 fL (80-94); Mean Platelet Vol. 10.2 fl (6.2-12.0); NRBC Flagged by Analyzer 0 % (0-5); Platelet Count 234 K/mm3 (150-450); RBC Distribution Width CV 13.8 % (11.6-14.6); RBC Distribution Width SD 49.1 fl (35.1-43.9); Red Blood Count 3.93 M/mm3 (4.6-6.2); White Blood Count 4.9 K/mm3 (4.4-11.0)
[2025-02-14 13:10] LABS: AST(SGOT) 23 U/L (<=37); Alanine Aminotransfer ALT/SGPT 14 U/L (<=46); Albumin, Serum 3.9 g/dL (3.4-4.8); Alkaline Phosphatase 113 U/L (40-129); Anion Gap 12 (5-15); BUN 17 mg/dL (4-19); BUN/Creat Ratio 12.6 RATIO (10-20); Calcium,Total 8.6 mg/dL (7.6-11.0); Carbon Dioxide 20.7 mmol/L (21.0-32.0); Chloride 105 mmol/L (98-108); Cholesterol 152 mg/dL (<=200); Globulin 3.0 g/dL (2.2-4.2); Glucose 181 mg/dL (70-99); Low Density Lipoprotein Calc. 78 mg/dL; Potassium 4.8 mmol/L (3.3-5.1); Triglycerides 181 mg/dL; Very Low Density Lipoprotein 36 mg/dL (5-40); Vitamin D,25 Hydroxy 26.3 ng/mL (30-100); cholesterol:hdl ratio screen 4.04
[2025-02-14 19:53] LABS: Xtra Tube Kwok EXTRA TUBE
== END | disposition home or self-care (01) ==
LOC: POLAB3 11:53
PROVIDERS: PCP Family Medicine Geriatric Medicine; Visit Provider Family Medicine Geriatric Medicine
DX: E78.5 Hyperlipidemia, unspecified (principal); E11.65 Type 2 diabetes mellitus with hyperglycemia; I10 Essential (primary) hypertension; E55.9 Vitamin D deficiency, unspecified
CPT/HCPCS: 36415; 80053; 80061; 82306; 83036; 84443; 85025

== ENCOUNTER 2025-03-13 15:00 | Outpatient (RCR) | payer MEDICARE, MEDICAID, SELFPAY ==
[2025-02-27 15:06] VITALS: BP 153/79; PULSE 108; RESP 18; TEMP 36.1
--- NOTE | 2025-02-27 20:01 | PN.PCM_ITS ---
History of Present Illness Date of Service: 02/27/25 Chief Complaint: Ulcer right foot History of Wound: Stable full-thickness wound right foot slow to heal Progress of Wound: Stable full-thickness wounds to the right transmetatarsal amputation site as well as new full-thickness wound secondary to fall onto the anterior right leg Subjective Subjective Patient is a 74-year-old diabetic male presenting to wound care center today follow-up evaluation of medial lateral full-thickness wound to the TMA site as well as a new wound to the anterior right leg secondary to fall while he was at [facility] on Tuesday. Patient did not seek medical attention and is treating his wound himself. Overall he is doing fine. He did not hit his head during the fall. He denies constitutional symptoms. No other pedal complaints at this time. Objective Data Objective Data Vital Signs: Vital Signs Temp Pulse Resp BP O2 Del Method 96.9 F L 108 H 18 153/79 H Room Air 02/27/25 15:06 02/27/25 15:06 02/27/25 15:06 02/27/25 15:06 02/27/25 15:06 Oxygen Delivery Method Room Air Physical Exam Narrative Vascular: DP and PT pulses are palpable to the right lower extremity. CFT is brisk to the flap to the right foot. Skin temperature great is warm to warm from proximal ankles to distal digits. Neurological: Light touch intact. Patient does not respond to painful stimuli. Dermatological: Full-thickness wound to the medial aspect of the right tra nsmetatarsal amputation site measuring 0.1 x 0.1 x 0.1 cm. Right lateral transmetatarsal amputation site full-thickness wound measures 0.3 x 0.4 x 0.5 cm. Negative probe to bone on both wounds at this time. Evidence of full- thickness wound appreciated to the right anterior leg measuring 17.5 x 1.5 x 0.1 cm. Wound base is granular with no sign of infection. Excisional debridement down to and including subcutaneous tissue with a number 5 mm dermal curette to the right anterior leg done without incident. Predebridement measurement was sanguinous crust. Postdebridement measurement was 17.5 x 1.5 x 0.1 cm. Excisional debridement down to including subcutaneous tissue fascia and muscle to the right lateral TMA full-thickness ulcer with a number 3 mm dermal curette without incident. Predebridement measurement was callus. Postdebridement measurement is 0.3 x 0.4 x 0.5 cm. Delayed primary closure was performed to the medial full-thickness wound please see procedure note/plan for further detail. Musculoskeletal. No pain to palpation to the full-thickness wounds to the right lower extremity. No pain with calf pressure. Debridement Note Debridement Note Debridement Free Text: Excisional debridement down to and including subcutaneous tissue with a number 5 mm dermal curette to the right anterior leg done without incident. Predebridement measurement was sanguinous crust. Postdebridement measurement was 17.5 x 1.5 x 0.1 cm. Excisional debridement down to including subcutaneous tissue fascia and muscle to the right lateral TMA full-thickness ulcer with a number 3 mm dermal curette without incident. Predebridement measurement was callus. Postdebridement measurement is 0.3 x 0.4 x 0.5 cm. Delayed primary closure was performed to the medial full-thickness wound please see procedure note/plan for further detail. Post-Debridement Measurements and Additional Note: Post-Debridement Measurements/Treatment - Nurse 1 - General Ulcer Assessment Start: 02/27/25 15:05 Freq: Status: Active Protocol: WC.LOWEXT Activity Type Activity Date Activity User E-sign Co-sign Detail Recorded Client Recorded Date Recorded By Document 02/27/25 15:06 [email or web address] [id number] 02/27/25 15:19 02/27/25 15:06 - Today's Visit Information Type of service Follow-up Visit (Physician/SOCIOLOGY INSTRUCTOR ) Arrival Mode Ambulatory, Walker Patient Identification Verified (Name & Yes ) Vital Signs Temperature (97.8 F-99.1 F) 96.9 F L Temperature Source Temporal Pulse Rate (60-100) 108 H Pulse Location Monitor Respiratory Rate (12-18) 18 Respiratory rate source Observation Oxygen Delivery Method Room Air Blood Pressure (90/60-120/80) 153/79 H Blood Pressure Mean (mm Hg) 103 Source Monitor Position Sitting Blood Pressure Location Left Arm History Since Last Visit- (Skip if this is Patient's initial visit) Have you changed medications since your No last visit? Any new allergies or adverse reactions No Had a fall/change in ADL's that may Yes increase risk of falls Signs or symptoms of abuse and/or No neglect since last visit Have you been in the hospital since your No last visit? Has dressing in place as prescribed Yes Has compression in place as prescribed Yes Has offloadiing in place as prescribed Yes Experienced any changes in pain level or No management Left Footwear Regular Shoe Right Footwear Surgical Shoe with pressure relief insole Pain Scale: 0-10 Numeric Is Patient Pain Free? Yes WC - Nurse 1 - General Ulcer Measurement Start: 02/27/25 15:05 Freq: Status: Active Protocol: Activity Type Activity Date Activity User E-sign Co-sign Detail Recorded Client Recorded Date Recorded By Document 02/27/25 15:06 KW [id number] 02/27/25 15:19 KW 02/27/25 15:06 Wound Center Nurse 1 8 RT NULL CLUSTER -Current Size (cm) - Length 26 -Current Size (cm) - Width 1 -Current Size (cm) - Depth 0.2 -Total Square Cm 26 -Date of Last Picture (Recall this 02/27/25 field) -Exudate Amt Medium -Exudate Type Serosanguineous -Wound Margin Distinct, Outline Attached -Granulation Amt Large (67-100%) -Granulation Quality Red -Texture (Donna-wound Skin Appearance) Assessed -Moisture (Donna-wound Skin Appearance) Assessed -Color (Donna-wound Skin Appearance) Assessed -Temperature (Donna-wound Skin No Abnormality Appearance) (Pt Warm) -Tenderness on Palpation (Donna-wound No Skin Appearance) -Ulcer Cleansing Soap and Water -Foul Odor after Cleansing No -Anesthetic Used 5% Lidocaine Gel right lateral TMA -Current Size (cm) - Length 0.1 -Current Size (cm) - Width 0.3 -Current Size (cm) - Depth 0.2 -Total Square Cm 0.03 -Date of Last Picture (Recall this 02/27/25 field) -Exudate Amt Small -Exudate Type Serosanguineous -Granulation Amt Small (1-33%) -Granulation Quality Red -Necrosis Amt Large (67-100%) -Necrotic Tissue Type Eschar -Texture (Donna-wound Skin Appearance) Assessed -Moisture (Donna-wound Skin Appearance) Assessed -Color (Donna-wound Skin Appearance) Assessed -Temperature (Donna-wound Skin No Abnormality Appearance) (Pt Warm) -Tenderness on Palpation (Donna-wound No Skin Appearance) -Ulcer Cleansing Soap and Water -Foul Odor after Cleansing No -Anesthetic Used 5% Lidocaine Gel right medial TMA ulcer -Current Size (cm) - Length 0.5 -Current Size (cm) - Width 0.2 -Current Size (cm) - Depth 0.2 -Total Square Cm 0.10 -Date of Last Picture (Recall this 02/27/25 field) -Exudate Amt Medium -Exudate Type Serosanguineous -Wound Margin Distinct, Outline Attached -Granulation Amt None Present (0 %) -Necrosis Amt Large (67-100%) -Necrotic Tissue Type Adherent Slough -Texture (Donna-wound Skin Appearance) Assessed -Moisture (Donna-wound Skin Appearance) Assessed -Color (Donna-wound Skin Appearance) Assessed -Temperature (Donna-wound Skin No Abnormality Appearance) (Pt Warm) -Tenderness on Palpation (Donna-wound No Skin Appearance) -Ulcer Cleansing Soap and Water -Foul Odor after Cleansing No -Anesthetic Used 5% Lidocaine Gel Right Calf (cm) 30.5 Right Ankle (cm) 21 WC - Nurse 2 - General Ulcer CM Notes Start: 02/27/25 15:05 Freq: Status: Active Protocol: Activity Type Activity Date Activity User E-sign Co-sign Detail Recorded Client Recorded Date Recorded By Document 02/27/25 15:24 [id number] 02/27/25 15:35 02/27/25 15:24 Wound Center Nurse 2 8 RT NULL CLUSTER -Time 15:25 -Correct Patient Yes -Correct Side, Site, Position Yes -Correct Procedure Yes -Procedure Performed Yes -Type of Procedure Debridement -Clinical Debridement Subcutaneous -Tissue Removed Subcutaneous -Post Debridement (cm) - Length 17.5 -Post Debridement (cm) - Width 1.5 -Post Debridement (cm) - Depth 0.1 -Total Square (Post) (cm) 26.25 -Area of Debridement (cm) - Length 17.5 -Area of Debridement (cm) - Width 1.5 -Total Square (Area) (cm) 26.25 -Tunneling No -Undermining/Tunneling No -Circular Undermining No -Wound/Ulcer Outcome Not Healed -Ulcer Cleansing Rinsed/ Irrigated with Saline -Foul Odor after Cleansing No -Bioengineered Tissue No -Bleeding Controlled with Pressure -Treatment Response Procedure Tolerated Well -Offloading No -Debridement - Subq, 1st 20sq cm Yes -Debridement, SubQ, ea addt'l 20sq cm 1 or part thereof right lateral TMA -Time 15:26 -Correct Patient Yes -Correct Side, Site, Position Yes -Correct Procedure Yes -Procedure Performed Yes -Type of Procedure Debridement -Clinical Debridement Muscle / Fascia -Tissue Removed Muscle -Post Debridement (cm) - Length 0.3 -Post Debridement (cm) - Width 0.4 -Post Debridement (cm) - Depth 0.5 -Total Square (Post) (cm) 0.12 -Area of Debridement (cm) - Length 0.3 -Area of Debridement (cm) - Width 0.4 -Total Square (Area) (cm) 0.12 -Tunneling No -Undermining/Tunneling No -Circular Undermining No -Wound/Ulcer Outcome Not Healed -Ulcer Cleansing Rinsed/ Irrigated with Saline -Foul Odor after Cleansing No -Bioengineered Tissue No -Bleeding Controlled with Pressure -Treatment Response Procedure Tolerated Well -Offloading No -Debridement - Muscle / Fascia, 1st Yes 20sq cm right medial TMA ulcer -Time 15:35 -Correct Patient Yes -Correct Side, Site, Position Yes -Correct Procedure Yes -Procedure Performed Yes -Type of Procedure Debridement -Clinical Debridement Subcutaneous -Tissue Removed Subcutaneous -Post Debridement (cm) - Length 0.1 -Post Debridement (cm) - Width 0.1 -Post Debridement (cm) - Depth 0.1 -Total Square (Post) (cm) 0.01 -Area of Debridement (cm) - Length 0.1 -Area of Debridement (cm) - Width 0.1 -Total Square (Area) (cm) 0.01 -Tunneling No -Undermining/Tunneling No -Circular Undermining No -Wound/Ulcer Outcome Not Healed -Ulcer Cleansing Rinsed/ Irrigated with Saline -Foul Odor after Cleansing No -Bioengineered Tissue No -Bleeding Controlled with Pressure -Treatment Response Procedure Tolerated Well -Offloading No -Debridement - Subq, 1st 20sq cm No Pain Scale: 0-10 Numeric Is Patient Pain Free? Yes WC - Nurse 3 - General Ulcer D/C NN Start: 02/27/25 15:05 Freq: Status: Active Protocol: Activity Type Activity Date Activity User E-sign Co-sign Detail Recorded Client Recorded Date Recorded By Document 02/27/25 15:52 [id number] 02/27/25 15:53 02/27/25 15:52 Wound Care Center Nurse 3 8 RT NULL CLUSTER -Ulcer Cleansing Not Cleansed -Foul Odor after Cleansing No -Primary Dressing Applied NonAdherent Contact Layer -Primary Dressing Covered/Secured with Dry Gauze right lateral TMA -Ulcer Cleansing Not Cleansed -Foul Odor after Cleansing No -Primary Dressing Applied NonAdherent Contact Layer -Primary Dressing Covered/Secured with Dry Gauze,Dry Gauze & Roll Gauze,Secured with Tape right medial TMA ulcer -Ulcer Cleansing Not Cleansed -Foul Odor after Cleansing No -Primary Dressing Covered/Secured with Dry Gauze RLE -Lotion applied to leg before No compression wrap -Tubular Bandage Single Layer -Size of Tubigrip Used Size D -Size D ($) 2 Pain Scale: 0-10 Numeric Is Patient Pain Free? Yes WC - Visit Discharge Discharge Condition Stable Ambulatory Status Ambulatory, Walker Transportation Private Auto Assessment/Plan Assessment/Plan (1) Non-pressure chronic ulcer of other part of right foot with fat layer exposed: CODE(S): L97.512 - Non-pressure chronic ulcer of other part of right foot with fat layer exposed PLAN: Patient was examined and evaluated. All findings were discussed with the patient. All questions were answered to the patient's satisfaction. Excisional debridement down to and including subcutaneous tissue with a number 5 mm dermal curette to the right anterior leg done without incident. Predebridement measurement was sanguinous crust. Postdebridement measurement was 17.5 x 1.5 x 0.1 cm. Excisional debridement down to including subcutaneous tissue fascia and muscle to the right lateral TMA full-thickness ulcer with a number 3 mm dermal curette without incident. Predebridement measurement was callus. Postdebridement measurement is 0.3 x 0.4 x 0.5 cm. Delayed Primary Closure Note: Next attention was directed to the full-thickness wound to the medial aspect of the TMA site. The area was free of infection and down to subcutaneous tissue. The area was flushed with copious normal saline. Topical anesthesia was applied and once anesthesia was confirmed I perform delayed primary closure using 3-0 Prolene in simple interrupted suture technique. The areas were cleaned and patted dry. The patient will be placed on doxycycline 100 mg twice daily for 2 weeks. Right lower extremities look clean and patted dry. Triple antibiotic was applied to the anterior right leg, Betadine paint was applied to the delayed primary closure and an open wound to the lateral aspect followed by dry sterile dressing light compression wrap. Patient to leave the dressing clean dry and intact. Follow-up at the wound care center with Dr. Lyons in 1 week. (2) Non-pressure chronic ulcer of other part of right lower leg with fat layer exposed: CODE(S): L97.812 - Non-pressure chronic ulcer of other part of right lower leg with fat layer exposed
--- NOTE | 2025-02-28 10:02 | WC ---
PHOTO-R TMA 02/27/25
--- NOTE | 2025-02-28 10:02 | WC ---
PHOTO-R TMA LAT 02/27/25
--- NOTE | 2025-02-28 10:03 | WC ---
PHOTO-RIGHT NULL 02/27/25
[2025-03-06 15:18] VITALS: BP 108/57; PULSE 104; RESP 18; TEMP 35.9
--- NOTE | 2025-03-07 16:17 | PN.PCM_ITS ---
History of Present Illness Date of Service: 03/06/25 Chief Complaint: Ulcer right foot History of Wound: Stable full-thickness wound right foot slow to heal Progress of Wound: Stable full-thickness wound to the right transmetatarsal amputation site status post late primary closure of medial full-thickness wound. New anterior leg wounds to right lower extremity stable and healing. Subjective Subjective Patient is a 74-year-old male presenting to wound care center today follow-up evaluation of full-thickness wound to the lateral aspect of the TMA site with delayed primary closure of the medial full-thickness wound to the TMA site. Patient has been compliant with dressing changes. He admits that his anterior leg wound is now improving. His blood sugars well-controlled. He has reduced smoking. Denies trauma. Denies constitutional symptoms. No other pedal complaints at this time. Objective Data Objective Data Vital Signs: Vital Signs Temp Pulse Resp BP O2 Del Method 96.7 F L 104 H 18 108/57 L Room Air 03/06/25 15:18 03/06/25 15:18 03/06/25 15:18 03/06/25 15:18 03/06/25 15:18 Oxygen Delivery Method Room Air Physical Exam Narrative Vascular: DP and PT pulses are palpable to the right lower extremity. CFT is brisk to the flap to the right foot. Skin temperature great is warm to warm from proximal ankles to distal digits. Neurological: Light touch intact. Patient does not respond to painful stimuli. Dermatological: Incision is well coapted, via Delayed primary closure to the medial aspect of the TMA site. Right lateral transmetatarsal amputation site full-thickness wound measures 0.5 x 0.4 x 0.3 cm. Full-thickness wound appreciated to the right anterior leg measuring 1.0 x 0.4 x 0.1 cm. Wound base is granular with no sign of infection. Excisional debridement down to and including subcutaneous tissue with a number 5 mm dermal curette to the right anterior leg done without incident. Predebridement measurement was sanguinous crust. Postdebridement measurement was 1.0 x 0.4 x 0.1 cm. Excisional debridement down to including subcutaneous tissue to the right lateral TMA full-thickness ulcer with a number 3 mm dermal curette without incident. Predebridement measurement was callus. Postdebridement measurement is 0.5 x 0.4 x 0.3 cm. Musculoskeletal. No pain to palpation to the full-thickness wounds to the right lower extremity. No pain with calf pressure. Debridement Note Debridement Note Debridement Free Text: Excisional debridement down to and including subcutaneous tissue with a number 5 mm dermal curette to the right anterior leg done without incident. Predebridement measurement was sanguinous crust. Postdebridement measurement was 1.0 x 0.4 x 0.1 cm. Excisional debridement down to including subcutaneous tissue to the right lateral TMA full-thickness ulcer with a number 3 mm dermal curette without incident. Predebridement measurement was callus. Postdebridement measurement is 0.5 x 0.4 x 0.3 cm. Post-Debridement Measurements and Additional Note: Post-Debridement Measurements/Treatment - Nurse 1 - General Ulcer Assessment Start: 02/27/25 15:05 Freq: Status: Active Protocol: WC.LOWEXT Activity Type Activity Date Activity User E-sign Co-sign Detail Recorded Client Recorded Date Recorded By Document 02/27/25 15:06 [id number] 02/27/25 15:19 KW Document 03/06/25 15:18 KW [id number] 03/06/25 15:26 KW 02/27/25 03/06/25 15:06 15:18 - Today's Visit Information Type of service Follow-up Visit Follow-up Visit (Physician/ADMINISTRATION VICE PRESIDENT (Physician/ADMINISTRATION VICE PRESIDENT ) ) Arrival Mode Ambulatory, Ambulatory, Walker Walker Patient Identification Verified (Name & Yes Yes ) Vital Signs Temperature (97.8 F-99.1 F) 96.9 F L 96.7 F L Temperature Source Temporal Temporal Pulse Rate (60-100) 108 H 104 H Pulse Location Monitor Monitor Respiratory Rate (12-18) 18 18 Respiratory rate source Observation Observation Oxygen Delivery Method Room Air Room Air Blood Pressure (90/60-120/80) 153/79 H 108/57 L Blood Pressure Mean (mm Hg) 103 74 Source Monitor Monitor Position Sitting Semi-Fowlers Blood Pressure Location Left Arm Right Arm History Since Last Visit- (Skip if this is Patient's initial visit) Have you changed medications since your No No last visit? Any new allergies or adverse reactions No No Had a fall/change in ADL's that may Yes No increase risk of falls Signs or symptoms of abuse and/or No No neglect since last visit Have you been in the hospital since your No No last visit? Has dressing in place as prescribed Yes Yes Has compression in place as prescribed Yes Yes Has offloadiing in place as prescribed Yes Yes Experienced any changes in pain level or No No management Left Footwear Regular Shoe Regular Shoe Right Footwear Surgical Shoe Regular Shoe with pressure relief insole Pain Scale: 0-10 Numeric Is Patient Pain Free? Yes Yes WC - Nurse 1 - General Ulcer Measurement Start: 02/27/25 15:05 Freq: Status: Active Protocol: Activity Type Activity Date Activity User E-sign Co-sign Detail Recorded Client Recorded Date Recorded By Document 02/27/25 15:06 KW [id number] 02/27/25 15:19 KW Document 03/06/25 15:18 KW [id number] 03/06/25 15:26 KW 02/27/25 03/06/25 15:06 15:18 Wound Center Nurse 1 8 RT NULL CLUSTER -Current Size (cm) - Length 26 1 -Current Size (cm) - Width 1 0.3 -Current Size (cm) - Depth 0.2 0.1 -Total Square Cm 26 0.3 -Date of Last Picture (Recall this 02/27/25 field) -Exudate Amt Medium -Exudate Type Serosanguineous -Wound Margin Distinct, Outline Attached -Granulation Amt Large (67-100%) Medium (34-66%) -Granulation Quality Red [place] -Necrosis Amt Medium (34-66%) -Necrotic Tissue Type Adherent Slough -Texture (Donna-wound Skin Appearance) Assessed Assessed -Moisture (Donna-wound Skin Appearance) Assessed Assessed -Color (Donna-wound Skin Appearance) Assessed Assessed -Temperature (Donna-wound Skin No Abnormality No Abnormality Appearance) (Pt Warm) (Pt Warm) -Tenderness on Palpation (Donna-wound No No Skin Appearance) -Ulcer Cleansing Soap and Water Soap and Water -Foul Odor after Cleansing No No -Anesthetic Used 5% Lidocaine 5% Lidocaine Gel Gel right lateral TMA -Current Size (cm) - Length 0.1 0.5 -Current Size (cm) - Width 0.3 0.3 -Current Size (cm) - Depth 0.2 0.4 -Total Square Cm 0.03 0.15 -Date of Last Picture (Recall this 02/27/25 field) -Exudate Amt Small Medium -Exudate Type Serosanguineous Serosanguineous -Wound Margin Thickened & Rolled Under -Granulation Amt Small (1-33%) None Present (0 %) -Granulation Quality Red -Necrosis Amt Large (67-100%) Large (67-100%) -Necrotic Tissue Type Eschar Adherent Slough -Texture (Donna-wound Skin Appearance) Assessed Assessed -Moisture (Donna-wound Skin Appearance) Assessed Assessed,Dry/ Scaly -Color (Donna-wound Skin Appearance) Assessed Assessed -Temperature (Donna-wound Skin No Abnormality No Abnormality Appearance) (Pt Warm) (Pt Warm) -Tenderness on Palpation (Donna-wound No No Skin Appearance) -Ulcer Cleansing Soap and Water Soap and Water -Foul Odor after Cleansing No No -Anesthetic Used 5% Lidocaine 5% Lidocaine Gel Gel right medial TMA ulcer -Current Size (cm) - Length 0.5 0.1 -Current Size (cm) - Width 0.2 0.1 -Current Size (cm) - Depth 0.2 0 -Total Square Cm 0.10 0.01 -Date of Last Picture (Recall this 02/27/25 field) -Exudate Amt Medium Medium -Exudate Type Serosanguineous Serosanguineous -Wound Margin Distinct, Well Defined, Outline Not Attached Attached -Granulation Amt None Present (0 %) -Necrosis Amt Large (67-100%) -Necrotic Tissue Type Adherent Slough -Texture (Donna-wound Skin Appearance) Assessed Assessed -Moisture (Donna-wound Skin Appearance) Assessed Assessed -Color (Donna-wound Skin Appearance) Assessed Assessed -Temperature (Donna-wound Skin No Abnormality No Abnormality Appearance) (Pt Warm) (Pt Warm) -Tenderness on Palpation (Donna-wound No No Skin Appearance) -Ulcer Cleansing Soap and Water Soap and Water -Foul Odor after Cleansing No No -Anesthetic Used 5% Lidocaine Gel -Wound Comment(s) SUTURES STILL INTACT Right Calf (cm) 30.5 Right Ankle (cm) 21 Left Calf (cm) 29 Left Ankle (cm) 19.2 WC - Nurse 2 - General Ulcer CM Notes Start: 02/27/25 15:05 Freq: Status: Active Protocol: Activity Type Activity Date Activity User E-sign Co-sign Detail Recorded Client Recorded Date Recorded By Document 02/27/25 15:24 NESS [id number] 02/27/25 15:35 JF Document 03/06/25 15:32 DS [id number] 03/06/25 15:35 DS Edit Result 03/06/25 15:32 DS (1) 1 03/06/25 16:25 DS (1) right lateral TMA - Correct Patient => Yes - Correct Side, Site, Position => Yes - Procedure Performed => No - Wound/Ulcer Outcome => Not Healed right medial TMA ulcer - Time => 15:34 - Correct Patient => Yes - Correct Side, Site, Position => Yes - Correct Procedure => Yes - Procedure Performed => Yes - Type of Procedure => Debridement - Clinical Debridement => Subcutaneous - Tissue Removed => Subcutaneous - Post Debridement (cm) - Length => 0.5 - Post Debridement (cm) - Width => 0.4 - Post Debridement (cm) - Depth => 0.3 - Total Square (Post) (cm) => 0.20 - Area of Debridement (cm) - Length => 0.5 - Area of Debridement (cm) - Width => 0.4 - Total Square (Area) (cm) => 0.20 - Tunneling => No - Undermining/Tunneling => No - Circular Undermining => No - Wound/Ulcer Outcome => Not Healed - Foul Odor after Cleansing => No - Bioengineered Tissue => No - Bleeding Controlled with => Pressure - Treatment Response => Procedure => Tolerated Well - Offloading => Yes - Type of Offloading => Darco Shoe - Right - Debridement - Subq, 1st 20sq cm => Yes 02/27/25 03/06/25 15:24 15:32 Wound Center Nurse 2 8 RT NULL CLUSTER -Time 15:25 15:32 -Correct Patient Yes Yes -Correct Side, Site, Position Yes Yes -Correct Procedure Yes Yes -Procedure Performed Yes Yes -Type of Procedure Debridement Debridement -Clinical Debridement Subcutaneous Subcutaneous -Tissue Removed Subcutaneous Subcutaneous -Post Debridement (cm) - Length 17.5 1.0 -Post Debridement (cm) - Width 1.5 0.4 -Post Debridement (cm) - Depth 0.1 0.1 -Total Square (Post) (cm) 26.25 0.40 -Area of Debridement (cm) - Length 17.5 1.0 -Area of Debridement (cm) - Width 1.5 0.4 -Total Square (Area) (cm) 26.25 0.40 -Tunneling No No -Undermining/Tunneling No No -Circular Undermining No No -Wound/Ulcer Outcome Not Healed Not Healed -Ulcer Cleansing Rinsed/ Rinsed/ Irrigated with Irrigated with Saline Saline -Foul Odor after Cleansing No No -Bioengineered Tissue No No -Bleeding Controlled with Pressure Pressure -Treatment Response Procedure Procedure Tolerated Well Tolerated Well -Offloading No -Debridement - Subq, 1st 20sq cm Yes No -Debridement, SubQ, ea addt'l 20sq cm 1 or part thereof right lateral TMA -Time 15:26 15:34 -Correct Patient Yes Yes -Correct Side, Site, Position Yes Yes -Correct Procedure Yes -Procedure Performed Yes No -Type of Procedure Debridement -Clinical Debridement Muscle / Fascia -Tissue Removed Muscle -Post Debridement (cm) - Length 0.3 -Post Debridement (cm) - Width 0.4 -Post Debridement (cm) - Depth 0.5 -Total Square (Post) (cm) 0.12 -Area of Debridement (cm) - Length 0.3 -Area of Debridement (cm) - Width 0.4 -Total Square (Area) (cm) 0.12 -Tunneling No -Undermining/Tunneling No -Circular Undermining No -Wound/Ulcer Outcome Not Healed Not Healed -Ulcer Cleansing Rinsed/ Irrigated with Saline -Foul Odor after Cleansing No -Bioengineered Tissue No -Bleeding Controlled with Pressure -Treatment Response Procedure Tolerated Well -Offloading No -Debridement - Muscle / Fascia, 1st Yes 20sq cm right medial TMA ulcer -Time 15:35 15:34 -Correct Patient Yes Yes -Correct Side, Site, Position Yes Yes -Correct Procedure Yes Yes -Procedure Performed Yes Yes -Type of Procedure Debridement Debridement -Clinical Debridement Subcutaneous Subcutaneous -Tissue Removed Subcutaneous Subcutaneous -Post Debridement (cm) - Length 0.1 0.5 -Post Debridement (cm) - Width 0.1 0.4 -Post Debridement (cm) - Depth 0.1 0.3 -Total Square (Post) (cm) 0.01 0.20 -Area of Debridement (cm) - Length 0.1 0.5 -Area of Debridement (cm) - Width 0.1 0.4 -Total Square (Area) (cm) 0.01 0.20 -Tunneling No No -Undermining/Tunneling No No -Circular Undermining No No -Wound/Ulcer Outcome Not Healed Not Healed -Ulcer Cleansing Rinsed/ Irrigated with Saline -Foul Odor after Cleansing No No -Bioengineered Tissue No No -Bleeding Controlled with Pressure Pressure -Treatment Response Procedure Procedure Tolerated Well Tolerated Well -Offloading No Yes -Type of Offloading Darco Shoe - Right -Debridement - Subq, 1st 20sq cm No Yes Pain Scale: 0-10 Numeric Is Patient Pain Free? Yes Yes - Nurse 3 - General Ulcer D/C NN Start: 02/27/25 15:05 Freq: Status: Active Protocol: Activity Type Activity Date Activity User E-sign Co-sign Detail Recorded Client Recorded Date Recorded By Document 02/27/25 15:52 GM [id number] 02/27/25 15:53 GM Document 03/06/25 15:51 ML [id number] 03/06/25 15:52 ML 02/27/25 03/06/25 15:52 15:51 Wound Care Center Nurse 3 8 RT NULL CLUSTER -Ulcer Cleansing Not Cleansed Rinsed/ Irrigated with Saline -Foul Odor after Cleansing No -Primary Dressing Applied NonAdherent Contact Layer -Other Dressing BETADINE -Primary Dressing Covered/Secured with Dry Gauze Dry Gauze & Roll Gauze, Secured with Tape right lateral TMA -Ulcer Cleansing Not Cleansed Rinsed/ Irrigated with Saline -Foul Odor after Cleansing No -Primary Dressing Applied NonAdherent Contact Layer -Other Dressing BETADINE -Primary Dressing Covered/Secured with Dry Gauze,Dry Dry Gauze & Gauze & Roll Roll Gauze, Gauze,Secured Secured with with Tape Tape right medial TMA ulcer -Ulcer Cleansing Not Cleansed Rinsed/ Irrigated with Saline -Foul Odor after Cleansing No -Other Dressing BETADINE -Primary Dressing Covered/Secured with Dry Gauze Dry Gauze & Roll Gauze, Secured with Tape RLE -Lotion applied to leg before No compression wrap -Tubular Bandage Single Layer Single Layer -Size of Tubigrip Used Size D Size C -Size C ($) 1 -Size D ($) 2 Pain Scale: 0-10 Numeric Is Patient Pain Free? Yes Yes - Visit Discharge Discharge Condition Stable Ambulatory Status Ambulatory, Walker Transportation Private Auto Assessment/Plan Assessment/Plan (1) Non-pressure chronic ulcer of other part of right foot with fat layer exposed: CODE(S): L97.512 - Non-pressure chronic ulcer of other part of right foot with fat layer exposed PLAN: Patient was examined and evaluated. All findings were discussed with the patient. All questions were answered to the patient's satisfaction. Excisional debridement down to and including subcutaneous tissue with a number 5 mm dermal curette to the right anterior leg done without incident. Predebridement measurement was sanguinous crust. Postdebridement measurement was 1.0 x 0.4 x 0.1 cm. Excisional debridement down to including subcutaneous tissue to the right lateral TMA full-thickness ulcer with a number 3 mm dermal curette without incident. Predebridement measurement was callus. Postdebridement measurement is 0.5 x 0.4 x 0.3 cm. Delayed primary closure site is well coapted and healing uneventfully. The right lower extremity soaking the pad and dry. Moist Araceli was applied to the full-thickness wound to lateral aspect of TMA site. The incision was dressed with Betadine soaked Adaptic and the anterior leg wound was dressed with Betadine paint, dry sterile dressing was applied and compression wrap was donned to right lower extremity. Patient will continue dressing changes to the lateral full-thickness wound and anterior leg and leave the incision site alone. Patient was educated to continue strict blood sugar control. Patient was educated on smoking cessation. Follow-up at the wound care center with Dr. Lyons in 1 week. (2) Non-pressure chronic ulcer of other part of right lower leg with fat layer exposed: CODE(S): L97.812 - Non-pressure chronic ulcer of other part of right lower leg with fat layer exposed
[2025-03-13 14:55] VITALS: BP 146/83; PULSE 101; RESP 16; TEMP 36.6
--- NOTE | 2025-03-13 15:46 | PN.PCM_ITS ---
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 New anterior leg wounds to right lower extremity stable and healing. Subjective Subjective Patient is a 74-year-old diabetic male presenting to the wound care center today for follow-up evaluation delayed primary closure to the medial TMA full- thickness wound, lateral full-thickness wound to the TMA as well as full- thickness wound to the right leg secondary to fall. Patient has been doing dressing changes as discussed. His blood sugars well-controlled. He denies trauma. Denies constitutional symptoms. No other pedal complaints at this time. Objective Data Objective Data Vital Signs: Vital Signs Temp Pulse Resp BP O2 Del Method 97.9 F 101 H 16 146/83 H Room Air 03/13/25 14:55 03/13/25 14:55 03/13/25 14:55 03/13/25 14:55 03/13/25 14:55 Oxygen Delivery Method Room Air Physical Exam Narrative Vascular: DP and PT pulses are palpable to the right lower extremity. CFT is brisk to the flap to the right foot. Skin temperature great is warm to warm from proximal ankles to distal digits. Neurological: Light touch intact. Patient does not respond to painful stimuli. Dermatological: Delayed primary closure since stitches were removed that showed evidence of a small dehiscence measuring 0.5 x 0.6 x 0.2 cm. Wound base is granular with no sign of infection. Evidence of stable callus to the lateral TMA site. Improved full-thickness wound to the right anterior leg measuring 1.0 x 0.4 x 0.1 cm. Excisional debridement down to including subcutaneous tissue with a number 5 mm dermal curette to the medial TMA full-thickness wound site secondary to surgical wound dehiscence done without incident. Predebridement measurement was 0.2 x 0.2 x 0.1 cm. Postdebridement measurement is 0.5 x 0.6 x 0.1 cm. Excisional debridement down to and including subcutaneous tissue to the full- thickness wound to the right anterior leg done with a number 5 mm dermal curette without incident. Predebridement measurement was eschar. Post wound measurements 1.0 x 0.4 x 0.1 cm. Musculoskeletal. No pain to palpation to the full-thickness wounds to the right lower extremity. No pain with calf pressure. Debridement Note Debridement Note Debridement Free Text: Excisional debridement down to including subcutaneous tissue with a number 5 mm dermal curette to the medial TMA full-thickness wound site secondary to surgical wound dehiscence done without incident. Predebridement measurement was 0.2 x 0.2 x 0.1 cm. Postdebridement measurement is 0.5 x 0.6 x 0.1 cm. Excisional debridement down to and including subcutaneous tissue to the full- thickness wound to the right anterior leg done with a number 5 mm dermal curette without incident. Predebridement measurement was eschar. Post wound measurements 1.0 x 0.4 x 0.1 cm. Post-Debridement Measurements and Additional Note: Post-Debridement Measurements/Treatment - Nurse 1 - General Ulcer Assessment Start: 02/27/25 15:05 Freq: Status: Active Protocol: YOCASTA Activity Type Activity Date Activity User E-sign Co-sign Detail Recorded Client Recorded Date Recorded By Document 02/27/25 15:06 KW [id number] 02/27/25 15:19 KW Document 03/06/25 15:18 KW [id number] 03/06/25 15:26 KW Document 03/13/25 14:55 [facility] [id number] 03/13/25 15:08 BM 02/27/25 03/06/25 03/13/25 15:06 15:18 14:55 - Today's Visit Information Type of service Follow-up Visit Follow-up Visit Follow-up Visit (Physician/INSPECTOR SCALES (Physician/INSPECTOR SCALES (Physician/INSPECTOR SCALES ) ) ) Arrival Mode Ambulatory, Ambulatory, Ambulatory, Walker Walker Walker Transfer Assistance None Patient Identification Verified (Name & Yes Yes Yes ) Patient Requires Transmission-Based No Precautions Vital Signs Temperature (97.8 F-99.1 F) 96.9 F L 96.7 F L 97.9 F Temperature Source Temporal Temporal Temporal Pulse Rate (60-100) 108 H 104 H 101 H Pulse Location Monitor Monitor Monitor Respiratory Rate (12-18) 18 18 16 Respiratory rate source Observation Observation Observation Oxygen Delivery Method Room Air Room Air Room Air Blood Pressure (90/60-120/80) 153/79 H 108/57 L 146/83 H Blood Pressure Mean (mm Hg) 103 74 104 Source Monitor Monitor Monitor Position Sitting Semi-Fowlers Sitting Blood Pressure Location Left Arm Right Arm Right Arm History Since Last Visit- (Skip if this is Patient's initial visit) Have you changed medications since your No No No last visit? Any new allergies or adverse reactions No No No Had a fall/change in ADL's that may Yes No No increase risk of falls Signs or symptoms of abuse and/or No No No neglect since last visit Have you been in the hospital since your No No No last visit? Has dressing in place as prescribed Yes Yes Yes Has compression in place as prescribed Yes Yes N/A Has offloadiing in place as prescribed Yes Yes Yes Experienced any changes in pain level or No No No management Left Footwear Regular Shoe Regular Shoe Surgical Shoe with pressure relief insole Right Footwear Surgical Shoe Regular Shoe Surgical Shoe with pressure with pressure relief insole relief insole Pain Scale: 0-10 Numeric Is Patient Pain Free? Yes Yes Yes WC - Nurse 1 - General Ulcer Measurement Start: 02/27/25 15:05 Freq: Status: Active Protocol: Activity Type Activity Date Activity User E-sign Co-sign Detail Recorded Client Recorded Date Recorded By Document 02/27/25 15:06 [id number] 02/27/25 15:19 KW Document 03/06/25 15:18 KW [id number] 03/06/25 15:26 KW Document 03/13/25 14:55 [facility] [id number] 03/13/25 15:08 [facility] 02/27/25 03/06/25 03/13/25 15:06 15:18 14:55 Wound Center Nurse 1 8 RT NULL CLUSTER -Combined with other wound No -Current Size (cm) - Length 26 1 0.1 -Current Size (cm) - Width 1 0.3 0.1 -Current Size (cm) - Depth 0.2 0.1 0.1 -Total Square Cm 26 0.3 0.01 -Date of Last Picture (Recall this 02/27/25 03/13/25 field) -Photo Taken Yes -Epithelialization Large 67-100% -Exudate Amt Medium -Exudate Type Serosanguineous -Wound Margin Distinct, Outline Attached -Granulation Amt Large (67-100%) Medium (34-66%) -Granulation Quality [place] -Necrosis Amt Medium (34-66%) -Necrotic Tissue Type Adherent Slough -Texture (Donna-wound Skin Appearance) Assessed Assessed Assessed -Moisture (Donna-wound Skin Appearance) Assessed Assessed Assessed,Dry/ Scaly -Color (Donna-wound Skin Appearance) Assessed Assessed Assessed -Temperature (Donna-wound Skin No Abnormality No Abnormality No Abnormality Appearance) (Pt Warm) (Pt Warm) (Pt Warm) -Tenderness on Palpation (Donna-wound No No No Skin Appearance) -Ulcer Cleansing Soap and Water Soap and Water Soap and Water -Foul Odor after Cleansing No No No -Anesthetic Used 5% Lidocaine 5% Lidocaine Gel Gel right lateral TMA -Combined with other wound No -Current Size (cm) - Length 0.1 0.5 0.1 -Current Size (cm) - Width 0.3 0.3 0.1 -Current Size (cm) - Depth 0.2 0.4 0.1 -Total Square Cm 0.03 0.15 0.01 -Date of Last Picture (Recall this 02/27/25 03/13/25 field) -Photo Taken Yes -Epithelialization Large 67-100% -Exudate Amt Small Medium -Exudate Type Serosanguineous Serosanguineous -Wound Margin Thickened & Rolled Under -Granulation Amt Small (1-33%) None Present (0 %) -Granulation Quality Red -Necrosis Amt Large (67-100%) Large (67-100%) -Necrotic Tissue Type Eschar Adherent Slough -Texture (Donna-wound Skin Appearance) Assessed Assessed Assessed,Callus -Moisture (Donna-wound Skin Appearance) Assessed Assessed,Dry/ Assessed,Dry/ Scaly Scaly -Color (Donna-wound Skin Appearance) Assessed Assessed Assessed -Temperature (Donna-wound Skin No Abnormality No Abnormality No Abnormality Appearance) (Pt Warm) (Pt Warm) (Pt Warm) -Tenderness on Palpation (Donna-wound No No No Skin Appearance) -Ulcer Cleansing Soap and Water Soap and Water Soap and Water -Foul Odor after Cleansing No No No -Anesthetic Used 5% Lidocaine 5% Lidocaine 4% Lidocaine Gel Gel Solution right medial TMA ulcer -Combined with other wound No -Current Size (cm) - Length 0.5 0.1 0.1 -Current Size (cm) - Width 0.2 0.1 0.1 -Current Size (cm) - Depth 0.2 0 0.1 -Total Square Cm 0.10 0.01 0.01 -Date of Last Picture (Recall this 02/27/25 03/13/25 field) -Photo Taken Yes -Epithelialization Large 67-100% -Exudate Amt Medium Medium -Exudate Type Serosanguineous Serosanguineous -Wound Margin Distinct, Well Defined, Outline Not Attached Attached -Granulation Amt None Present (0 %) -Necrosis Amt Large (67-100%) -Necrotic Tissue Type Adherent Slough -Texture (Donna-wound Skin Appearance) Assessed Assessed -Moisture (Donna-wound Skin Appearance) Assessed Assessed -Color (Donna-wound Skin Appearance) Assessed Assessed -Temperature (Donna-wound Skin No Abnormality No Abnormality Appearance) (Pt Warm) (Pt Warm) -Tenderness on Palpation (Donna-wound No No Skin Appearance) -Ulcer Cleansing Soap and Water Soap and Water -Foul Odor after Cleansing No No -Anesthetic Used 5% Lidocaine Gel -Wound Comment(s) SUTURES STILL SUTURES INTACT. INTACT Right Calf (cm) 30.5 Right Ankle (cm) 21 Left Calf (cm) 29 Left Ankle (cm) 19.2 WC - Nurse 2 - General Ulcer CM Notes Start: 02/27/25 15:05 Freq: Status: Active Protocol: Activity Type Activity Date Activity User E-sign Co-sign Detail Recorded Client Recorded Date Recorded By Document 02/27/25 15:24 JF [id number] 02/27/25 15:35 JF Document 03/06/25 15:32 DS [id number] 03/06/25 15:35 DS Edit Result 03/06/25 15:32 DS (1) 1 03/06/25 16:25 DS Document 03/13/25 15:38 JF [id number] 03/13/25 15:42 JF (1) right lateral TMA - Correct Patient => Yes - Correct Side, Site, Position => Yes - Procedure Performed => No - Wound/Ulcer Outcome => Not Healed right medial TMA ulcer - Time => 15:34 - Correct Patient => Yes - Correct Side, Site, Position => Yes - Correct Procedure => Yes - Procedure Performed => Yes - Type of Procedure => Debridement - Clinical Debridement => Subcutaneous - Tissue Removed => Subcutaneous - Post Debridement (cm) - Length => 0.5 - Post Debridement (cm) - Width => 0.4 - Post Debridement (cm) - Depth => 0.3 - Total Square (Post) (cm) => 0.20 - Area of Debridement (cm) - Length => 0.5 - Area of Debridement (cm) - Width => 0.4 - Total Square (Area) (cm) => 0.20 - Tunneling => No - Undermining/Tunneling => No - Circular Undermining => No - Wound/Ulcer Outcome => Not Healed - Foul Odor after Cleansing => No - Bioengineered Tissue => No - Bleeding Controlled with => Pressure - Treatment Response => Procedure => Tolerated Well - Offloading => Yes - Type of Offloading => Dar[place] Shoe - Right - Debridement - Subq, 20sq cm => Yes 02/27/25 03/06/25 03/13/25 15:24 15:32 15:38 Wound Center Nurse 2 8 RT NULL CLUSTER -Time 15:25 15:32 15:41 -Correct Patient Yes Yes Yes -Correct Side, Site, Position Yes Yes Yes -Correct Procedure Yes Yes Yes -Procedure Performed Yes Yes Yes -Type of Procedure Debridement Debridement Debridement -Clinical Debridement Subcutaneous Subcutaneous Subcutaneous -Tissue Removed Subcutaneous Subcutaneous Subcutaneous -Post Debridement (cm) - Length 17.5 1.0 1.0 -Post Debridement (cm) - Width 1.5 0.4 0.4 -Post Debridement (cm) - Depth 0.1 0.1 0.1 -Total Square (Post) (cm) 26.25 0.40 0.40 -Area of Debridement (cm) - Length 17.5 1.0 1.0 -Area of Debridement (cm) - Width 1.5 0.4 0.4 -Total Square (Area) (cm) 26.25 0.40 0.40 -Tunneling No No No -Undermining/Tunneling No No No -Circular Undermining No No No -Wound/Ulcer Outcome Not Healed Not Healed Not Healed -Ulcer Cleansing Rinsed/ Rinsed/ Rinsed/ Irrigated with Irrigated with Irrigated with Saline Saline Saline -Foul Odor after Cleansing No No No -Bioengineered Tissue No No No -Bleeding Controlled with Pressure Pressure Pressure -Treatment Response Procedure Procedure Procedure Tolerated Well Tolerated Well Tolerated Well -Offloading No No -Debridement - Subq, 1st 20sq cm Yes No No -Debridement, SubQ, ea addt'l 20sq cm 1 or part thereof right lateral TMA -Time 15:26 15:34 15:38 -Correct Patient Yes Yes Yes -Correct Side, Site, Position Yes Yes No -Correct Procedure Yes No -Procedure Performed Yes No No -Type of Procedure Debridement -Clinical Debridement Muscle / Fascia -Tissue Removed Muscle -Post Debridement (cm) - Length 0.3 0.1 -Post Debridement (cm) - Width 0.4 0.1 -Post Debridement (cm) - Depth 0.5 0.1 -Total Square (Post) (cm) 0.12 0.01 -Area of Debridement (cm) - Length 0.3 0.1 -Area of Debridement (cm) - Width 0.4 0.1 -Total Square (Area) (cm) 0.12 0.01 -Tunneling No No -Undermining/Tunneling No No -Circular Undermining No No -Wound/Ulcer Outcome Not Healed Not Healed Not Healed -Ulcer Cleansing Rinsed/ Rinsed/ Irrigated with Irrigated with Saline Saline -Foul Odor after Cleansing No No -Bioengineered Tissue No No -Bleeding Controlled with Pressure Pressure -Treatment Response Procedure Procedure Tolerated Well Tolerated Well -Offloading No No -Debridement - Subq, 1st 20sq cm No -Debridement - Muscle / Fascia, 1st Yes 20sq cm right medial TMA ulcer -Time 15:35 15:34 15:41 -Correct Patient Yes Yes Yes -Correct Side, Site, Position Yes Yes Yes -Correct Procedure Yes Yes Yes -Procedure Performed Yes Yes Yes -Type of Procedure Debridement Debridement Debridement -Clinical Debridement Subcutaneous Subcutaneous Subcutaneous -Tissue Removed Subcutaneous Subcutaneous Subcutaneous -Post Debridement (cm) - Length 0.1 0.5 0.5 -Post Debridement (cm) - Width 0.1 0.4 0.6 -Post Debridement (cm) - Depth 0.1 0.3 0.2 -Total Square (Post) (cm) 0.01 0.20 0.30 -Area of Debridement (cm) - Length 0.1 0.5 0.5 -Area of Debridement (cm) - Width 0.1 0.4 0.6 -Total Square (Area) (cm) 0.01 0.20 0.30 -Tunneling No No No -Undermining/Tunneling No No No -Circular Undermining No No No -Wound/Ulcer Outcome Not Healed Not Healed Not Healed -Ulcer Cleansing Rinsed/ Rinsed/ Irrigated with Irrigated with Saline Saline -Foul Odor after Cleansing No No No -Bioengineered Tissue No No No -Bleeding Controlled with Pressure Pressure Pressure -Treatment Response Procedure Procedure Procedure Tolerated Well Tolerated Well Tolerated Well -Offloading No Yes -Type of Offloading Darco Shoe - Right -Debridement - Subq, 1st 20sq cm No Yes Yes Pain Scale: 0-10 Numeric Is Patient Pain Free? Yes Yes Yes - Nurse 3 - General Ulcer D/C NN Start: 02/27/25 15:05 Freq: Status: Active Protocol: Activity Type Activity Date Activity User E-sign Co-sign Detail Recorded Client Recorded Date Recorded By Document 02/27/25 15:52 GM [id number] 02/27/25 15:53 GM Document 03/06/25 15:51 ML [id number] 03/06/25 15:52 ML 02/27/25 03/06/25 15:52 15:51 Wound Care Center Nurse 3 8 RT NULL CLUSTER -Ulcer Cleansing Not Cleansed Rinsed/ Irrigated with Saline -Foul Odor after Cleansing No -Primary Dressing Applied NonAdherent Contact Layer -Other Dressing BETADINE -Primary Dressing Covered/Secured with Dry Gauze Dry Gauze & Roll Gauze, Secured with Tape right lateral TMA -Ulcer Cleansing Not Cleansed Rinsed/ Irrigated with Saline -Foul Odor after Cleansing No -Primary Dressing Applied NonAdherent Contact Layer -Other Dressing BETADINE -Primary Dressing Covered/Secured with Dry Gauze,Dry Dry Gauze & Gauze & Roll Roll Gauze, Gauze,Secured Secured with with Tape Tape right medial TMA ulcer -Ulcer Cleansing Not Cleansed Rinsed/ Irrigated with Saline -Foul Odor after Cleansing No -Other Dressing BETADINE -Primary Dressing Covered/Secured with Dry Gauze Dry Gauze & Roll Gauze, Secured with Tape RLE -Lotion applied to leg before No compression wrap -Tubular Bandage Single Layer Single Layer -Size of Tubigrip Used Size D Size C -Size C ($) 1 -Size D ($) 2 Pain Scale: 0-10 Numeric Is Patient Pain Free? Yes Yes - Visit Discharge Discharge Condition Stable Ambulatory Status Ambulatory, Walker Transportation Private Auto Assessment/Plan Assessment/Plan (1) Non-pressure chronic ulcer of other part of right foot with fat layer exposed: CODE(S): L97.512 - Non-pressure chronic ulcer of other part of right foot with fat layer exposed PLAN: Patient was examined and evaluated. All findings were discussed with the patient. All questions were answered to the patient's satisfaction. Excisional debridement down to including subcutaneous tissue with a number 5 mm dermal curette to the medial TMA full-thickness wound site secondary to surgical wound dehiscence done without incident. Predebridement measurement was 0.2 x 0.2 x 0.1 cm. Postdebridement measurement is 0.5 x 0.6 x 0.1 cm. Excisional debridement down to and including subcutaneous tissue to the full- thickness wound to the right anterior leg done with a number 5 mm dermal curette without incident. Predebridement measurement was eschar. Post wound m easurements 1.0 x 0.4 x 0.1 cm. The right foot TMA and full-thickness wound to the anterior right leg were wiped clean and patted dry. Moist Araceli was applied to both wounds covered by dry sterile dressing compression wrap. Patient will change every other day. Patient will continue strict blood sugar control and continue to rest and elevate is much as possible to decrease swelling in his right leg. Educated patient on smoking cessation. Follow-up at the wound care center with Dr. Lyons in 2 week. (2) Non-pressure chronic ulcer of other part of right lower leg with fat layer e xposed: CODE(S): L97.812 - Non-pressure chronic ulcer of other part of right lower leg with fat layer exposed
--- NOTE | 2025-03-14 08:44 | WC ---
PHOTO-RIGHT NULL 03/13/25
--- NOTE | 2025-03-14 08:47 | WC ---
PHOTO-RIGHT MED [facility] 03/13/25
--- NOTE | 2025-03-14 08:48 | WC ---
PHOTO-RIGHT LATERAL TMA 03/13/25
== END 2025-03-17 23:59 | disposition home or self-care (01) ==
LOC: WC 15:00
PROVIDERS: PCP Family Medicine Geriatric Medicine; Referring Provider Podiatrist Foot & Ankle Surgery; Visit Provider Podiatrist Foot & Ankle Surgery
DX: L97.512 Non-pressure chronic ulcer of other part of right foot with fat layer exposed (principal); L97.812 Non-pressure chronic ulcer of other part of right lower leg with fat layer exposed; T87.89 Other complications of amputation stump; Y83.5 Amputation of limb(s) as the cause of abnormal reaction of the patient, or of later complication, without mention of misadventure at the time of the procedure
CPT/HCPCS: 11042; 11043; 11045

== ENCOUNTER 2025-04-10 15:00 | Outpatient (RCR) | payer MEDICARE, MEDICAID, SELFPAY ==
[2025-03-27 10:52] VITALS: BP 132/61; PULSE 93; RESP 18; TEMP 36.5
--- NOTE | 2025-03-27 11:59 | PCM.WC.PN ---
History of Present Illness Date of Service: 03/27/25 Chief Complaint: Ulcer right foot History of Wound: Stable full-thickness wound right foot slow to heal Progress of Wound: Stable slow healing full-thickness wound to the medial right TMA site and anterior leg wound. Subjective Subjective Mr. Coronel is a 74-year-old male presenting to the wound care center today follow-up evaluation of full-thickness wound secondary to wound dehiscence from delayed primary closure to the medial aspect of the TMA site of the right lower extremity. Patient has a new wound to the anterior right leg secondary to fall. He does ambulate with assistance/rollator. His blood sugars well-controlled. He still smokes. He denies constitutional symptoms. No other pedal complaints at this time. Objective Data Objective Data Vital Signs: Vital Signs Temp Pulse Resp BP O2 Del Method 97.7 F L 93 18 132/61 H Room Air 03/27/25 10:52 03/27/25 10:52 03/27/25 10:52 03/27/25 10:52 03/27/25 10:52 Oxygen Delivery Method Room Air Physical Exam Narrative Vascular: DP and PT pulses are palpable to the right lower extremity. CFT is brisk to the flap to the right foot. Skin temperature great is warm to warm from proximal ankles to distal digits. Neurological: Light touch intact. Patient does not respond to painful stimuli. Dermatological: Delayed primary closure since stitches were removed that showed evidence of a small dehiscence measuring 0.5 x 0.4 x 0.3 cm. Wound base is granular with no sign of infection. Full-thickness wound to the right anterior leg measuring 1.0 x 1.0 x 0.1 cm. Excisional debridement down to including subcutaneous tissue fascia and muscle with a number 5 mm dermal curette to the medial TMA full-thickness wound site secondary to surgical wound dehiscence done without incident. Predebridement measurement was 0.2 x 0.2 x 0.1 cm. Postdebridement measurement is 0.5 x 0.4 x 0.3 cm. Excisional debridement down to and including subcutaneous tissue to the full-thickness wound to the right anterior leg done with a number 5 mm dermal curette without incident. Predebridement measurement was eschar. Post wound measurements 1.0 x 1.0 x 0.1 cm. Musculoskeletal. No pain to palpation to the full-thickness wounds to the right lower extremity. No pain with calf pressure. Debridement Note Debridement Note Debridement Free Text: Excisional debridement down to including subcutaneous tissue fascia and muscle with a number 5 mm dermal curette to the medial TMA full-thickness wound site secondary to surgical wound dehiscence done without incident. Predebridement measurement was 0.2 x 0.2 x 0.1 cm. Postdebridement measurement is 0.5 x 0.4 x 0.3 cm. Excisional debridement down to and including subcutaneous tissue to the full-thickness wound to the right anterior leg done with a number 5 mm dermal curette without incident. Predebridement measurement was eschar. Post wound measurements 1.0 x 1.0 x 0.1 cm. 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 Any new allergies or adverse reactions No Had a fall/change in ADL's that may No increase risk of falls Signs or symptoms of abuse and/or No neglect since last visit Have you been in the hospital since your No last visit? Has dressing in place as prescribed Yes Has compression in place as prescribed Yes Has offloadiing in place as prescribed Yes Experienced any changes in pain level or Yes management Left Footwear Surgical Shoe with pressure relief insole Right Footwear Surgical Shoe with pressure relief insole Pain Scale: 0-10 Numeric Is Patient Pain Free? Yes WC - Nurse 1 - General Ulcer Measurement Start: 03/27/25 10:52 Freq: Status: Active Protocol: Activity Type Activity Date Activity User E-sign Co-sign Detail Recorded Client Recorded Date Recorded By Document 03/27/25 10:52 KW [id number] 03/27/25 11:11 KW 03/27/25 10:52 Wound Center Nurse 1 right lateral TMA -Current Size (cm) - Length 0.2 -Current Size (cm) - Width 0.2 -Current Size (cm) - Depth 0.4 -Total Square Cm 0.04 -Date of Last Picture (Recall this 03/27/25 field) -Exudate Amt Medium -Exudate Type Serosanguineous -Wound Margin Thickened -Granulation Amt None Present (0 %) -Necrosis Amt Large (67-100%) -Necrotic Tissue Type Adherent Slough -Texture (Donna-wound Skin Appearance) Assessed,Callus -Moisture (Donna-wound Skin Appearance) Assessed -Color (Donna-wound Skin Appearance) Assessed -Tenderness on Palpation (Donna-wound No Skin Appearance) -Ulcer Cleansing Soap and Water -Foul Odor after Cleansing No -Anesthetic Used 5% Lidocaine Gel 8 RT NULL CLUSTER -Current Size (cm) - Length 0.1 -Current Size (cm) - Width 0.1 -Current Size (cm) - Depth 0 -Total Square Cm 0.01 -Date of Last Picture (Recall this 03/27/25 field) -Exudate Amt None Present -Granulation Amt None Present (0 %) -Texture (Donna-wound Skin Appearance) Assessed -Moisture (Donna-wound Skin Appearance) Assessed -Color (Donna-wound Skin Appearance) Assessed -Temperature (Donna-wound Skin No Abnormality Appearance) (Pt Warm) -Tenderness on Palpation (Donna-wound No Skin Appearance) -Ulcer Cleansing Soap and Water -Foul Odor after Cleansing No -Anesthetic Used 5% Lidocaine Gel -Wound Comment(s) scabbed right medial TMA ulcer -Current Size (cm) - Length 0.4 -Current Size (cm) - Width 0.1 -Current Size (cm) - Depth 0.3 -Total Square Cm 0.04 -Date of Last Picture (Recall this 03/27/25 field) -Exudate Amt Medium -Exudate Type Serosanguineous -Wound Margin Thickened -Granulation Amt Small (1-33%) -Granulation Quality [facility] -Necrosis Amt Large (67-100%) -Necrotic Tissue Type Adherent Slough -Texture (Donna-wound Skin Appearance) Assessed -Moisture (Donna-wound Skin Appearance) Assessed -Color (Donna-wound Skin Appearance) Assessed -Temperature (Donna-wound Skin No Abnormality Appearance) (Pt Warm) -Tenderness on Palpation (Donna-wound No Skin Appearance) -Ulcer Cleansing Soap and Water -Foul Odor after Cleansing No -Anesthetic Used 5% Lidocaine Gel WC - Nurse 2 - General Ulcer CM Notes Start: 03/27/25 10:52 Freq: Status: Active Protocol: Activity Type Activity Date Activity User E-sign Co-sign Detail Recorded Client Recorded Date Recorded By Document 03/27/25 11:33 NESS [id number] 03/27/25 11:36 NESS 03/27/25 11:33 Wound Center Nurse 2 right lateral TMA -Correct Patient Yes -Correct Side, Site, Position No -Correct Procedure No -Procedure Performed No -Post Debridement (cm) - Length 0 -Post Debridement (cm) - Width 0 -Post Debridement (cm) - Depth 0 -Total Square (Post) (cm) 0 -Area of Debridement (cm) - Length 0 -Area of Debridement (cm) - Width 0 -Total Square (Area) (cm) 0 -Wound/Ulcer Outcome Healed- Epithelialized 8 RT NULL CLUSTER -Time 11:34 -Correct Patient Yes -Correct Side, Site, Position Yes -Correct Procedure Yes -Procedure Performed Yes -Type of Procedure Debridement -Clinical Debridement Subcutaneous -Tissue Removed Subcutaneous -Post Debridement (cm) - Length 1 -Post Debridement (cm) - Width 1 -Post Debridement (cm) - Depth 0.1 -Total Square (Post) (cm) 1 -Area of Debridement (cm) - Length 1 -Area of Debridement (cm) - Width 1 -Total Square (Area) (cm) 1 -Tunneling No -Undermining/Tunneling No -Circular Undermining No -Wound/Ulcer Outcome Not Healed -Ulcer Cleansing Rinsed/ Irrigated with Saline -Foul Odor after Cleansing No -Bioengineered Tissue No -Bleeding Controlled with Pressure -Treatment Response Procedure Tolerated Well -Offloading No -Debridement - Subq, 1st 20sq cm Yes right medial TMA ulcer -Time 11:35 -Correct Patient Yes -Correct Side, Site, Position Yes -Correct Procedure Yes -Procedure Performed Yes -Type of Procedure Debridement -Clinical Debridement Muscle / Fascia -Tissue Removed Muscle -Post Debridement (cm) - Length 0.5 -Post Debridement (cm) - Width 0.4 -Post Debridement (cm) - Depth 0.5 -Total Square (Post) (cm) 0.20 -Area of Debridement (cm) - Length 0.5 -Area of Debridement (cm) - Width 0.4 -Total Square (Area) (cm) 0.20 -Tunneling No -Undermining/Tunneling No -Circular Undermining No -Wound/Ulcer Outcome Not Healed -Ulcer Cleansing Rinsed/ Irrigated with Saline -Foul Odor after Cleansing No -Bioengineered Tissue No -Bleeding Controlled with Pressure -Treatment Response Procedure Tolerated Well -Offloading No -Debridement - Muscle / Fascia, 1st Yes 20sq cm Pain Scale: 0-10 Numeric Is Patient Pain Free? Yes - Nurse 3 - General Ulcer D/C NN Start: 03/27/25 10:52 Freq: Status: Active Protocol: Activity Type Activity Date Activity User E-sign Co-sign Detail Recorded Client Recorded Date Recorded By Document 03/27/25 11:56 [id number] 03/27/25 11:57 03/27/25 11:56 Wound Care Center Nurse 3 8 RT NULL CLUSTER -Ulcer Cleansing Not Cleansed -Foul Odor after Cleansing No -Primary Dressing Covered/Secured with Dry Gauze,Dry Gauze & Roll Gauze,Secured with Tape right medial TMA ulcer -Ulcer Cleansing Not Cleansed -Foul Odor after Cleansing No -Primary Dressing Applied Promogran Araceli Matter -Primary Dressing Covered/Secured with Dry Gauze, Secured with Tape -Promogran Araceli Matter 1 LLE -Lotion applied to leg before No compression wrap -Tubular Bandage Single Layer -Size of Tubigrip Used Size D -Size D ($) 1 Pain Scale: 0-10 Numeric Is Patient Pain Free? Yes - Visit Discharge Discharge Condition Stable Ambulatory Status Ambulatory, Walker Transportation Private Auto Assessment/Plan Assessment/Plan (1) Non-pressure chronic ulcer of other part of right foot with necrosis of muscle: CODE(S): L97.513 - Non-pressure chronic ulcer of other part of right foot with necrosis of muscle PLAN: Patient was examined and evaluated. All findings were discussed with the patient. All questions were answered to the patient's satisfaction. Excisional debridement down to including subcutaneous tissue fascia and muscle with a number 5 mm dermal curette to the medial TMA full-thickness wound site secondary to surgical wound dehiscence done without incident. Predebridement measurement was 0.2 x 0.2 x 0.1 cm. Postdebridement measurement is 0.5 x 0.4 x 0.3 cm. Excisional debridement down to and including subcutaneous tissue to the full-thickness wound to the right anterior leg done with a number 5 mm dermal curette without incident. Predebridement measurement was eschar. Post wound measurements 1.0 x 1.0 x 0.1 cm. The right foot TMA and full-thickness wound to the anterior right leg were wiped clean and patted dry. Moist Araceli was applied to both wounds covered by dry sterile dressing compression wrap. Patient will change every other day. Anterior right leg was dressed with triple antibiotic, dry sterile dressing and Tubigrip was donned to the right lower extremity. Patient will continue strict blood sugar control and continue to rest and elevate is much as possible to decrease swelling in his right leg. Educated patient on smoking cessation. Follow-up at the wound care center with Dr. Lyons in 2 week (2) Non-pressure chronic ulcer of other part of right lower leg with fat layer exposed: CODE(S): L97.812 - Non-pressure chronic ulcer of other part of right lower leg with fat layer exposed
--- NOTE | 2025-03-27 12:56 | WC ---
PHOTO-RLE 03/27/25
--- NOTE | 2025-03-27 12:58 | WC ---
PHOTO-RIGHT LATERAL FOOT 03/27/25
--- NOTE | 2025-03-27 13:02 | WC ---
PHOTO-RIGHT MED FOOT 03/27/25
[2025-04-10 14:53] VITALS: BP 148/78; PULSE 94; RESP 18; TEMP 35.9
--- NOTE | 2025-04-10 15:12 | PN.PCM_ITS ---
History of Present Illness Date of Service: 04/10/25 Chief Complaint: Ulcer right foot History of Wound: Stable full-thickness wound right foot slow to heal Progress of Wound: Stable slow healing full-thickness wound to the medial right TMA site and anterior leg wound. Subjective Subjective Patient is a 74-year-old diabetic male presenting to wound care center today follow-up evaluation of full-thickness wound to the medial aspect of the TMA site. Patient states that the anterior leg wounds are now healed. He has been doing dressing changes discussed. He still admits to smoking. Blood sugar well-controlled. Denies any new onset of trauma. Denies constitutional symptoms. No other pedal complaints at this time. Objective Data Objective Data Vital Signs: Vital Signs Temp Pulse Resp BP O2 Del Method 96.7 F L 94 18 148/78 H Room Air 04/10/25 14:53 04/10/25 14:53 04/10/25 14:53 04/10/25 14:53 03/27/25 10:52 Oxygen Delivery Method Room Air Physical Exam Narrative Vascular: DP and PT pulses are palpable to the right lower extremity. CFT is brisk to the flap to the right foot. Skin temperature great is warm to warm from proximal ankles to distal digits. Neurological: Light touch intact. Patient does not respond to painful stimuli. Dermatological: Full-thickness wound to the medial aspect of the TMA site to the right lower extremity measuring 0.7 x 0.5 x 0.6 cm. Wound base is granular with no sign of infection. Negative probe to bone. All wounds anterior leg of the right lower extremity are now healed. Excisional debridement down to and including subcutaneous tissue with a number 3 mm dermal curette to the TMA site medial aspect full-thickness wound done without incident. Predebridement measurement was 0.5 x 0.3 x 0.3 cm. Postdebridement measurement is 0.7 x 0.5 x 0.6 cm. Musculoskeletal. No pain to palpation to the full-thickness wounds to the right lower extremity. No pain with calf pressure. Debridement Note Debridement Note Debridement Free Text: Excisional debridement down to and including subcutaneous tissue with a number 3 mm dermal curette to the TMA site medial aspect full- thickness wound done without incident. Predebridement measurement was 0.5 x 0.3 x 0.3 cm. Postdebridement measurement is 0.7 x 0.5 x 0.6 cm. Post-Debridement Measurements and Additional Note: Post-Debridement Measurements/Treatment WC - Nurse 1 - General Ulcer Assessment Start: 03/27/25 10:52 Freq: Status: Active Protocol: YOCASTA Activity Type Activity Date Activity User E-sign Co-sign Detail Recorded Client Recorded Date Recorded By Document 03/27/25 10:52 KW [id number] 03/27/25 11:11 KW Document 04/10/25 14:53 RB [id number] 04/10/25 14:56 RB 03/27/25 04/10/25 10:52 14:53 WC - Today's Visit Information Type of service Follow-up Visit Follow-up Visit (Physician/SENIOR COUNSEL (Physician/SENIOR COUNSEL ) ) Arrival Mode Ambulatory, Ambulatory, Walker Walker Transfer Assistance Manual Patient Identification Verified (Name & Yes Yes ) Patient Requires Transmission-Based No Precautions Vital Signs Temperature (97.8 F-99.1 F) 97.7 F L 96.7 F L Temperature Source Temporal Temporal Pulse Rate (60-100) 93 94 Pulse Location Monitor Monitor Respiratory Rate (12-18) 18 18 Respiratory rate source Observation Observation Oxygen Delivery Method Room Air Blood Pressure (90/60-120/80) 132/61 H 148/78 H Blood Pressure Mean (mm Hg) 84 101 Source Monitor Monitor Position Semi-Fowlers Semi-Fowlers Blood Pressure Location Left Arm Left Arm History Since Last Visit- (Skip if this is Patient's initial visit) Have you changed medications since your No No last visit? Any new allergies or adverse reactions No No Had a fall/change in ADL's that may No No increase risk of falls Signs or symptoms of abuse and/or No No neglect since last visit Have you been in the hospital since your No No last visit? Has dressing in place as prescribed Yes Yes Has compression in place as prescribed Yes Yes Has offloadiing in place as prescribed Yes N/A Experienced any changes in pain level or Yes No management Left Footwear Surgical Shoe Regular Shoe with pressure relief insole Right Footwear Surgical Shoe Surgical Shoe with pressure with pressure relief insole relief insole Pain Scale: 0-10 Numeric Is Patient Pain Free? Yes Yes - Nurse 1 - General Ulcer Measurement Start: 03/27/25 10:52 Freq: Status: Active Protocol: Activity Type Activity Date Activity User E-sign Co-sign Detail Recorded Client Recorded Date Recorded By Document 03/27/25 10:52 KW [id number] 03/27/25 11:11 KW Document 04/10/25 14:53 RB [id number] 04/10/25 14:56 RB 03/27/25 04/10/25 10:52 14:53 Wound Center Nurse 1 8 RT NULL CLUSTER -Combined with other wound No -Current Size (cm) - Length 0.1 0.1 -Current Size (cm) - Width 0.1 0.1 -Current Size (cm) - Depth 0 0.1 -Total Square Cm 0.01 0.01 -Date of Last Picture (Recall this 03/27/25 field) -Photo Taken Yes -Tunneling No -Undermining/Tunneling No -Circular Undermining No -Exudate Amt None Present Small -Exudate Type Serosanguineous -Wound Margin Distinct, Outline Attached -Granulation Amt None Present (0 Small (1-33%) %) -Granulation Quality [place] -Slough/Fibrin Yes -Necrosis Amt Large (67-100%) -Necrotic Tissue Type Eschar -Structure Exposed N/A -Texture (Donna-wound Skin Appearance) Assessed Assessed -Moisture (Donna-wound Skin Appearance) Assessed Assessed -Color (Donna-wound Skin Appearance) Assessed Assessed -Temperature (Donna-wound Skin No Abnormality No Abnormality Appearance) (Pt Warm) (Pt Warm) -Tenderness on Palpation (Donna-wound No No Skin Appearance) -Ulcer Cleansing Soap and Water Wound Cleanser -Foul Odor after Cleansing No No -Anesthetic Used 5% Lidocaine 5% Lidocaine Gel Gel -Wound Comment(s) scabbed right lateral TMA -Current Size (cm) - Length 0.2 -Current Size (cm) - Width 0.2 -Current Size (cm) - Depth 0.4 -Total Square Cm 0.04 -Date of Last Picture (Recall this 03/27/25 field) -Exudate Amt Medium -Exudate Type Serosanguineous -Wound Margin Thickened -Granulation Amt None Present (0 %) -Necrosis Amt Large (67-100%) -Necrotic Tissue Type Adherent Slough -Texture (Donna-wound Skin Appearance) Assessed,Callus -Moisture (Donna-wound Skin Appearance) Assessed -Color (Donna-wound Skin Appearance) Assessed -Tenderness on Palpation (Donna-wound No Skin Appearance) -Ulcer Cleansing Soap and Water -Foul Odor after Cleansing No -Anesthetic Used 5% Lidocaine Gel right medial TMA ulcer -Combined with other wound No -Current Size (cm) - Length 0.4 0.4 -Current Size (cm) - Width 0.1 0.6 -Current Size (cm) - Depth 0.3 0.3 -Total Square Cm 0.04 0.24 -Date of Last Picture (Recall this 03/27/25 field) -Photo Taken Yes -Tunneling No -Undermining/Tunneling No -Circular Undermining No -Exudate Amt Medium Large -Exudate Type Serosanguineous Serosanguineous -Wound Margin Thickened Thickened & Rolled Under -Granulation Amt Small (1-33%) Medium (34-66%) -Granulation Quality [place] -Slough/Fibrin Yes -Necrosis Amt Large (67-100%) Small (1-33%) -Necrotic Tissue Type Adherent Slough Adherent Slough -Structure Exposed N/A -Texture (Donna-wound Skin Appearance) Assessed Assessed -Moisture (Donna-wound Skin Appearance) Assessed Assessed -Color (Donna-wound Skin Appearance) Assessed Assessed -Temperature (Donna-wound Skin No Abnormality No Abnormality Appearance) (Pt Warm) (Pt Warm) -Tenderness on Palpation (Donna-wound No No Skin Appearance) -Ulcer Cleansing Soap and Water Wound Cleanser -Foul Odor after Cleansing No No -Anesthetic Used 5% Lidocaine 5% Lidocaine Gel Gel WC - Nurse 2 - General Ulcer CM Notes Start: 03/27/25 10:52 Freq: Status: Active Protocol: Activity Type Activity Date Activity User E-sign Co-sign Detail Recorded Client Recorded Date Recorded By Document 03/27/25 11:33 [id number] 03/27/25 11:36 Document 04/10/25 15:06 [id number] 04/10/25 15:07 03/27/25 04/10/25 11:33 15:06 Wound Center Nurse 2 8 RT NULL CLUSTER -Time 11:34 -Correct Patient Yes Yes -Correct Side, Site, Position Yes No -Correct Procedure Yes No -Procedure Performed Yes No -Type of Procedure Debridement -Clinical Debridement Subcutaneous -Tissue Removed Subcutaneous -Post Debridement (cm) - Length 1 0 -Post Debridement (cm) - Width 1 0 -Post Debridement (cm) - Depth 0.1 0 -Total Square (Post) (cm) 1 0 -Area of Debridement (cm) - Length 1 0 -Area of Debridement (cm) - Width 1 0 -Total Square (Area) (cm) 1 0 -Tunneling No -Undermining/Tunneling No -Circular Undermining No -Wound/Ulcer Outcome Not Healed Healed- Epithelialized -Ulcer Cleansing Rinsed/ Irrigated with Saline -Foul Odor after Cleansing No -Bioengineered Tissue No -Bleeding Controlled with Pressure -Treatment Response Procedure Tolerated Well -Offloading No -Debridement - Subq, 1st 20sq cm Yes right lateral TMA -Correct Patient Yes -Correct Side, Site, Position No -Correct Procedure No -Procedure Performed No -Post Debridement (cm) - Length 0 -Post Debridement (cm) - Width 0 -Post Debridement (cm) - Depth 0 -Total Square (Post) (cm) 0 -Area of Debridement (cm) - Length 0 -Area of Debridement (cm) - Width 0 -Total Square (Area) (cm) 0 -Wound/Ulcer Outcome Healed- Epithelialized right medial TMA ulcer -Time 11:35 15:06 -Correct Patient Yes Yes -Correct Side, Site, Position Yes Yes -Correct Procedure Yes Yes -Procedure Performed Yes Yes -Type of Procedure Debridement Debridement -Clinical Debridement Muscle / Fascia Muscle / Fascia -Tissue Removed Muscle Muscle -Post Debridement (cm) - Length 0.5 0.7 -Post Debridement (cm) - Width 0.4 0.5 -Post Debridement (cm) - Depth 0.5 0.6 -Total Square (Post) (cm) 0.20 0.35 -Area of Debridement (cm) - Length 0.5 0.7 -Area of Debridement (cm) - Width 0.4 0.5 -Total Square (Area) (cm) 0.20 0.35 -Tunneling No No -Undermining/Tunneling No No -Circular Undermining No No -Wound/Ulcer Outcome Not Healed Not Healed -Ulcer Cleansing Rinsed/ Rinsed/ Irrigated with Irrigated with Saline Saline -Foul Odor after Cleansing No No -Bioengineered Tissue No No -Bleeding Controlled with Pressure Pressure -Treatment Response Procedure Procedure Tolerated Well Tolerated Well -Offloading No No -Debridement - Muscle / Fascia, 1st Yes Yes 20sq cm Pain Scale: 0-10 Numeric Is Patient Pain Free? Yes Yes WC - Nurse 3 - General Ulcer D/C NN Start: 03/27/25 10:52 Freq: Status: Active Protocol: Activity Type Activity Date Activity User E-sign Co-sign Detail Recorded Client Recorded Date Recorded By Document 03/27/25 11:56 [id number] 03/27/25 11:57 03/27/25 11:56 Wound Care Center Nurse 3 8 RT NULL CLUSTER -Ulcer Cleansing Not Cleansed -Foul Odor after Cleansing No -Primary Dressing Covered/Secured with Dry Gauze,Dry Gauze & Roll Gauze,Secured with Tape right medial TMA ulcer -Ulcer Cleansing Not Cleansed -Foul Odor after Cleansing No -Primary Dressing Applied Promogran Araceli Matter -Primary Dressing Covered/Secured with Dry Gauze, Secured with Tape -Promogran Araceli Matter 1 LLE -Lotion applied to leg before No compression wrap -Tubular Bandage Single Layer -Size of Tubigrip Used Size D -Size D ($) 1 Pain Scale: 0-10 Numeric Is Patient Pain Free? Yes WC - Visit Discharge Discharge Condition Stable Ambulatory Status Ambulatory, Walker Transportation Private Auto Assessment/Plan Assessment/Plan (1) Non-pressure chronic ulcer of other part of right foot with necrosis of muscle: CODE(S): L97.513 - Non-pressure chronic ulcer of other part of right foot with necrosis of muscle PLAN: Patient was examined and evaluated. All findings were discussed with the patient. All questions were answered to the patient's satisfaction. Excisional debridement down to and including subcutaneous tissue with a number 3 mm dermal curette to the TMA site medial aspect full-thickness wound done without incident. Predebridement measurement was 0.5 x 0.3 x 0.3 cm. Postdebridement measurement is 0.7 x 0.5 x 0.6 cm. The right lower extremities were cleaned and patted dry. The full-thickness wound was dressed with AMD pad followed by sterile dressing. Patient will change every other day. Educated patient continue strict blood sugar control. Really educated the patient on smoking cessation and he admits that he will try. No plan for surgical intervention at this time. Follow-up at the wound care center with Dr. Lyons in 2 week
--- NOTE | 2025-04-11 14:51 | WC ---
PHOTO-RIGHT TMA 04/10/25
--- NOTE | 2025-04-11 14:56 | WC ---
PHOTO-RLE ANT 04/10/25
== END 2025-04-16 23:59 | disposition home or self-care (01) ==
LOC: WC 15:00
PROVIDERS: PCP Family Medicine Geriatric Medicine; Referring Provider Podiatrist Foot & Ankle Surgery; Visit Provider Podiatrist Foot & Ankle Surgery
DX: L97.513 Non-pressure chronic ulcer of other part of right foot with necrosis of muscle (principal); L97.812 Non-pressure chronic ulcer of other part of right lower leg with fat layer exposed; T87.89 Other complications of amputation stump; F17.200 Nicotine dependence, unspecified, uncomplicated; Y83.5 Amputation of limb(s) as the cause of abnormal reaction of the patient, or of later complication, without mention of misadventure at the time of the procedure
CPT/HCPCS: 11042; 11043

== ENCOUNTER 2025-05-15 15:00 | Outpatient (RCR) | payer MEDICARE, MEDICAID, SELFPAY ==
[2025-05-01 15:09] VITALS: BP 181/89; PULSE 104; RESP 16; TEMP 36.4
--- NOTE | 2025-05-02 10:36 | WC ---
PHOTO 05/01/25
--- NOTE | 2025-05-04 12:24 | PCM.WC.PN ---
History of Present Illness Date of Service: 05/01/25 Chief Complaint: Ulcer right foot History of Wound: Slow healing full-thickness wound right TMA site medial side. Progress of Wound: Slow healing full-thickness wound right TMA site medial side. Subjective Subjective Patient is a 74-year-old diabetic male present to clinic today to follow-up relation of full-thickness wound to the TMA site of the right lower extremity. Patient's lateral side is now healed. His anterior leg is healed. His blood sugars well-controlled. He continues to smoke. Denies trauma. Denies constitutional symptoms. No other pedal complaints at this time. Objective Data Objective Data Vital Signs: Vital Signs Temp Pulse Resp BP 97.5 F L 104 H 16 181/89 H 05/01/25 15:09 05/01/25 15:09 05/01/25 15:09 05/01/25 15:09 Lab / Micro Data Micro: Microbiology 05/01/25 15:20 Tissue - Right Foot Gram Stain - Final 05/01/25 15:20 Tissue - Right Foot Wound Culture - Preliminary Staphylococcus aureus GPC Poss Enterococcus sp 05/01/25 15:20 Tissue - Right Foot Anaerobic Culture - Preliminary Physical Exam Narrative Vascular: DP and PT pulses are palpable to the right lower extremity. CFT is brisk to the flap to the right foot. Skin temperature great is warm to warm from proximal ankles to distal digits. Neurological: Light touch intact. Patient does not respond to painful stimuli. Dermatological: Full-thickness wound to the medial aspect of the TMA site to the right lower extremity measuring 0.7 x 0.6 x 0.8 cm. Wound base is granular with no sign of infection. Positive probe to bone. Excisional debridement down to and including subcutaneous, fascia, muscle, and bone tissue with a number 3 mm dermal curette to the TMA site medial aspect full-thickness wound done without incident. Predebridement measurement was 0.4 x 0.4 x 0.3 cm. Postdebridement measurement is 0.7 x 0.6 x 0.8 cm. Musculoskeletal. No pain to palpation to the full-thickness wounds to the right lower extremity. No pain with calf pressure. Debridement Note Debridement Note Debridement Free Text: Excisional debridement down to and including subcutaneous, fascia, muscle, and bone tissue with a number 3 mm dermal curette to the TMA site medial aspect full-thickness wound done without incident. Predebridement measurement was 0.4 x 0.4 x 0.3 cm. Postdebridement measurement is 0.7 x 0.6 x 0.8 cm. Post-Debridement Measurements and Additional Note: Post-Debridement Measurements/Treatment - Nurse 1 - General Ulcer Assessment Start: 05/01/25 15:09 Freq: Status: Active Protocol: YOCASTA Activity Type Activity Date Activity User E-sign Co-sign Detail Recorded Client Recorded Date Recorded By Document 05/01/25 15:09 [id number] 05/01/25 15:14 CP 05/01/25 15:09 WC - Today's Visit Information Type of service Follow-up Visit (Physician/CHILD CARE DEVELOPMENT SPECIALIST ) Arrival Mode Ambulatory, Walker Patient Identification Verified (Name & Yes ) Vital Signs Temperature (97.8 F-99.1 F) 97.5 F L Temperature Source Temporal Pulse Rate (60-100) 104 H Pulse Location Monitor Respiratory Rate (12-18) 16 Respiratory rate source Observation Blood Pressure (90/60-120/80) 181/89 H Blood Pressure Mean (mm Hg) 119 Source Monitor Position Sitting Blood Pressure Location Left Arm History Since Last Visit- (Skip if this is Patient's initial visit) Have you changed medications since your No last visit? Any new allergies or adverse reactions No Had a fall/change in ADL's that may No increase risk of falls Signs or symptoms of abuse and/or No neglect since last visit Have you been in the hospital since your No last visit? Has dressing in place as prescribed Yes Has compression in place as prescribed Yes Has offloadiing in place as prescribed N/A Experienced any changes in pain level or No management Pain Scale: 0-10 Numeric Is Patient Pain Free? Yes - Nurse 1 - General Ulcer Measurement Start: 05/01/25 15:09 Freq: Status: Active Protocol: Activity Type Activity Date Activity User E-sign Co-sign Detail Recorded Client Recorded Date Recorded By Document 05/01/25 15:09 [id number] 05/01/25 15:14 CP 05/01/25 15:09 Wound Center Nurse 1 right lateral TMA -Current Size (cm) - Length 0.1 -Current Size (cm) - Width 0.1 -Current Size (cm) - Depth 0.1 -Total Square Cm 0.01 -Date of Last Picture (Recall this 05/01/25 field) -Photo Taken Yes -Epithelialization Large 67-100% -Moisture (Donna-wound Skin Appearance) Dry/Scaly -Tenderness on Palpation (Donna-wound No Skin Appearance) -Ulcer Cleansing Rinsed/ Irrigated with Saline -Anesthetic Used 5% Lidocaine Gel right medial TMA ulcer -Current Size (cm) - Length 0.1 -Current Size (cm) - Width 0.1 -Current Size (cm) - Depth 0.1 -Total Square Cm 0.01 -Photo Taken Yes -Epithelialization Large 67-100% -Granulation Amt None Present (0 %) -Structure Exposed N/A -Moisture (Donna-wound Skin Appearance) Maceration -Anesthetic Used 5% Lidocaine Gel WC - Nurse 2 - General Ulcer CM Notes Start: 05/01/25 15:09 Freq: Status: Active Protocol: Activity Type Activity Date Activity User E-sign Co-sign Detail Recorded Client Recorded Date Recorded By Document 05/01/25 15:18 [email or web address] [id number] 05/01/25 15:24 05/01/25 15:18 Wound Center Nurse 2 right lateral TMA -Time 15:22 -Correct Patient Yes -Correct Side, Site, Position No -Correct Procedure No -Procedure Performed No -Tissue Removed Non-viable tissue -Tunneling No -Undermining/Tunneling No -Circular Undermining No -Wound/Ulcer Outcome Healed- Epithelialized -Ulcer Cleansing Rinsed/ Irrigated with Saline -Foul Odor after Cleansing No -Bioengineered Tissue No -Bleeding Controlled with Pressure -Treatment Response Procedure Tolerated Well -Offloading Yes -Type of Offloading Surgical Shoe -Debridement - Bone, 1st 20sq cm Yes right medial TMA ulcer -Time 15:23 -Correct Patient Yes -Correct Side, Site, Position Yes -Correct Procedure Yes -Procedure Performed Yes -Type of Procedure Debridement -Clinical Debridement Bone -Tissue Removed Non-viable tissue -Post Debridement (cm) - Length 0.7 -Post Debridement (cm) - Width 0.6 -Post Debridement (cm) - Depth 0.8 -Total Square (Post) (cm) 0.42 -Area of Debridement (cm) - Length 0.7 -Area of Debridement (cm) - Width 0.6 -Total Square (Area) (cm) 0.42 -Tunneling No -Undermining/Tunneling No -Circular Undermining No -Wound/Ulcer Outcome Not Healed -Ulcer Cleansing Rinsed/ Irrigated with Saline -Foul Odor after Cleansing No -Bioengineered Tissue No -Bleeding Controlled with Pressure, Surgifoam ? x 2 3/8 (sm) -Surgifoam (3/4 x 2 3/8) Small 1 -Treatment Response Procedure Tolerated Well -Offloading Yes -Type of Offloading Surgical Shoe -Debridement - Bone, 1st 20sq cm Yes Pain Scale: 0-10 Numeric Is Patient Pain Free? Yes WC - Nurse 3 - General Ulcer D/C NN Start: 05/01/25 15:09 Freq: Status: Active Protocol: Activity Type Activity Date Activity User E-sign Co-sign Detail Recorded Client Recorded Date Recorded By Document 05/01/25 15:49 CP [id number] 05/01/25 15:49 CP 05/01/25 15:49 Wound Care Center Nurse 3 right medial TMA ulcer -Ulcer Cleansing Rinsed/ Irrigated with Saline -Other Dressing dakins moist gauze -Primary Dressing Covered/Secured with Dry Gauze & Roll Gauze, Secured with Tape Pain Scale: 0-10 Numeric Is Patient Pain Free? Yes WC - Visit Discharge Discharge Condition Stable Ambulatory Status Ambulatory, Walker Transportation Private Auto Clinical Summary of Care Provided Yes Assessment/Plan Assessment/Plan (1) Non-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: CODE(S): L97.514 - Non-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 PLAN: Patient was examined and evaluated. All findings were discussed with the patient. All questions were answered to the patient's satisfaction. Excisional debridement down to and including subcutaneous, fascia, muscle, and bone tissue with a number 3 mm dermal curette to the TMA site medial aspect full-thickness wound done without incident. Predebridement measurement was 0.4 x 0.4 x 0.3 cm. Postdebridement measurement is 0.7 x 0.6 x 0.8 cm. The right lower extremities were cleaned and patted dry. Full-thickness wound to the TMA site on medial side was dressed with Betadine soaked gauze/packing dry sterile dressing and compression wrap. He will change daily. Educated patient continue strict blood sugar control. Really educated the patient on smoking cessation and he admits that he will try. No plan for surgical intervention at this time. Follow-up at the wound care center with Dr. Lyons in 1-2 week
[2025-05-08 08:27] VITALS: BP 149/63; PULSE 87; RESP 16; TEMP 36.2
--- NOTE | 2025-05-08 09:24 | PCM.WC.PN ---
History of Present Illness Date of Service: 05/08/25 Chief Complaint: Ulcer right foot History of Wound: Slow healing full-thickness wound right TMA site medial side. Progress of Wound: Slow healing full-thickness wound right TMA site medial side. Subjective Subjective Patient is a 74-year-old diabetic male presenting to wound care center today follow-up evaluation of right medial full-thickness wound to the TMA site. Patient states that he did not change his dressing for a full week. He does admit to some malodor but no pain to the area. His blood sugars well-controlled. He continues to smoke. He denies trauma. Denies constitutional symptoms. Other pedal complaints at this time. Objective Data Objective Data Vital Signs: Vital Signs Temp Pulse Resp BP 97.1 F L 87 16 149/63 H 05/08/25 08:27 05/08/25 08:27 05/08/25 08:27 05/08/25 08:27 Lab / Micro Data Micro: Microbiology 05/01/25 15:20 Tissue - Right Foot Gram Stain - Final 05/01/25 15:20 Tissue - Right Foot Wound Culture - Final Meth. resistant Staph. aureus Enterococcus faecalis Enterococcus faecium 05/01/25 15:20 Tissue - Right Foot Anaerobic Culture - Final No anaerobic bacteria isolated. Physical Exam Narrative Vascular: DP and PT pulses are palpable to the right lower extremity. CFT is brisk to the flap to the right foot. Skin temperature gradient is warm to warm from proximal ankles to distal stump with mild focal increase appreciated to the medial distal aspect of the TMA stump. Neurological: Light touch intact. Patient does not respond to painful stimuli. Dermatological: Full-thickness wound to the medial aspect of the TMA site to the right lower extremity measuring 1.0 x 1.0 x 1.2 cm. Wound base is fibrogranular nature with positive probe to bone. Excisional debridement down to and including subcutaneous, fascia, muscle, and bone tissue with a number 3 mm dermal curette to the TMA site medial aspect full-thickness wound done without incident. Predebridement measurement was 0.8 x 0.8 x 0.8 cm. Postdebridement measurement is 1.0 x 1.0 x 1.2 cm. Musculoskeletal. No pain to palpation to the full-thickness wounds to the right lower extremity. No pain with calf pressure. Debridement Note Debridement Note Debridement Free Text: Excisional debridement down to and including subcutaneous, fascia, muscle, and bone tissue with a number 3 mm dermal curette to the TMA site medial aspect full-thickness wound done without incident. Predebridement measurement was 0.8 x 0.8 x 0.8 cm. Postdebridement measurement is 1.0 x 1.0 x 1.2 cm. Post-Debridement Measurements and Additional Note: Post-Debridement Measurements/Treatment WC - Nurse 1 - General Ulcer Assessment Start: 05/01/25 15:09 Freq: Status: Active Protocol: YOCASTA Activity Type Activity Date Activity User E-sign Co-sign Detail Recorded Client Recorded Date Recorded By Document 05/01/25 15:09 CP [id number] 05/01/25 15:14 CP Document 05/08/25 08:27 CP [id number] 05/08/25 08:35 CP 05/01/25 05/08/25 15:09 08:27 WC - Today's Visit Information Type of service Follow-up Visit Follow-up Visit (Physician/S[employer] STYLUS GRINDER (Physician/S[employer]YLUS GRINDER ) ) Arrival Mode Ambulatory, Ambulatory, Walker Walker Patient Identification Verified (Name & Yes Yes ) Vital Signs Temperature (97.8 F-99.1 F) 97.5 F L 97.1 F L Temperature Source Temporal Temporal Pulse Rate (60-100) 104 H 87 Pulse Location Monitor Monitor Respiratory Rate (12-18) 16 16 Respiratory rate source Observation Observation Blood Pressure (90/60-120/80) 181/89 H 149/63 H Blood Pressure Mean (mm Hg) 119 91 Source Monitor Monitor Position Sitting Sitting Blood Pressure Location Left Arm Left Arm History Since Last Visit- (Skip if this is Patient's initial visit) Have you changed medications since your No No last visit? Any new allergies or adverse reactions No No Had a fall/change in ADL's that may No No increase risk of falls Signs or symptoms of abuse and/or No No neglect since last visit Have you been in the hospital since your No No last visit? Has dressing in place as prescribed Yes Yes Has compression in place as prescribed Yes Yes Has offloadiing in place as prescribed N/A N/A Experienced any changes in pain level or No No management Pain Scale: 0-10 Numeric Is Patient Pain Free? Yes Yes DOLORES - Nurse 1 - General Ulcer Measurement Start: 05/01/25 15:09 Freq: Status: Active Protocol: Activity Type Activity Date Activity User E-sign Co-sign Detail Recorded Client Recorded Date Recorded By Document 05/01/25 15:09 CP [id number] 05/01/25 15:14 CP Document 05/08/25 08:27 CP [id number] 05/08/25 08:35 CP 05/01/25 05/08/25 15:09 08:27 Wound Center Nurse 1 right lateral TMA -Current Size (cm) - Length 0.1 -Current Size (cm) - Width 0.1 -Current Size (cm) - Depth 0.1 -Total Square Cm 0.01 -Date of Last Picture (Recall this 05/01/25 field) -Photo Taken Yes -Epithelialization Large 67-100% -Moisture (Donna-wound Skin Appearance) Dry/Scaly -Tenderness on Palpation (Donna-wound No Skin Appearance) -Ulcer Cleansing Rinsed/ Irrigated with Saline -Anesthetic Used 5% Lidocaine Gel right medial TMA ulcer -Current Size (cm) - Length 0.1 1 -Current Size (cm) - Width 0.1 1 -Current Size (cm) - Depth 0.1 1 -Total Square Cm 0.01 1 -Photo Taken Yes -Epithelialization Large 67-100% None Present -Undermining/Tunneling No -Exudate Amt Small -Exudate Type Serosanguineous -Wound Margin Flat & Intact -Granulation Amt None Present (0 Small (1-33%) %) -Granulation Quality Red -Slough/Fibrin Yes -Necrosis Amt Large (67-100%) -Necrotic Tissue Type Adherent Slough -Structure Exposed N/A -Texture (Donna-wound Skin Appearance) No Abnormality -Moisture (Donna-wound Skin Appearance) Maceration No Abnormality -Color (Donna-wound Skin Appearance) No Abnormality -Temperature (Donna-wound Skin No Abnormality Appearance) (Pt Warm) -Tenderness on Palpation (Donna-wound No Skin Appearance) -Ulcer Cleansing Soap and Water -Foul Odor after Cleansing Yes -Anesthetic Used 5% Lidocaine 5% Lidocaine Gel Gel WC - Nurse 2 - General Ulcer CM Notes Start: 05/01/25 15:09 Freq: Status: Active Protocol: Activity Type Activity Date Activity User E-sign Co-sign Detail Recorded Client Recorded Date Recorded By Document 05/01/25 15:18 [id number] 05/01/25 15:24 Document 05/08/25 08:51 [id number] 05/08/25 08:52 JF 05/01/25 05/08/25 15:18 08:51 Wound Center Nurse 2 right lateral TMA -Time 15:22 -Correct Patient Yes -Correct Side, Site, Position No -Correct Procedure No -Procedure Performed No -Tissue Removed Non-viable tissue -Tunneling No -Undermining/Tunneling No -Circular Undermining No -Wound/Ulcer Outcome Healed- Epithelialized -Ulcer Cleansing Rinsed/ Irrigated with Saline -Foul Odor after Cleansing No -Bioengineered Tissue No -Bleeding Controlled with Pressure -Treatment Response Procedure Tolerated Well -Offloading Yes -Type of Offloading Surgical Shoe -Debridement - Bone, 1st 20sq cm Yes right medial TMA ulcer -Time 15:23 08:51 -Correct Patient Yes Yes -Correct Side, Site, Position Yes Yes -Correct Procedure Yes Yes -Procedure Performed Yes Yes -Type of Procedure Debridement Debridement -Clinical Debridement Bone Bone -Tissue Removed Non-viable Non-viable tissue tissue -Post Debridement (cm) - Length 0.7 -Post Debridement (cm) - Width 0.6 -Post Debridement (cm) - Depth 0.8 -Total Square (Post) (cm) 0.42 -Area of Debridement (cm) - Length 0.7 -Area of Debridement (cm) - Width 0.6 -Total Square (Area) (cm) 0.42 -Tunneling No No -Undermining/Tunneling No No -Circular Undermining No No -Wound/Ulcer Outcome Not Healed Not Healed -Ulcer Cleansing Rinsed/ Rinsed/ Irrigated with Irrigated with Saline Saline -Foul Odor after Cleansing No No -Bioengineered Tissue No No -Bleeding Controlled with Pressure, Pressure Surgifoam ? x 2 3/8 (sm) -Surgifoam (3/4 x 2 3/8) Small 1 -Treatment Response Procedure Procedure Tolerated Well Tolerated Well -Offloading Yes Yes -Type of Offloading Surgical Shoe Surgical Shoe -Debridement - Bone, 1st 20sq cm Yes Yes Pain Scale: 0-10 Numeric Is Patient Pain Free? Yes Yes WC - Nurse 3 - General Ulcer D/C NN Start: 05/01/25 15:09 Freq: Status: Active Protocol: Activity Type Activity Date Activity User E-sign Co-sign Detail Recorded Client Recorded Date Recorded By Document 05/01/25 15:49 [id number] 05/01/25 15:49 CP Document 05/08/25 09:06 [id number] 05/08/25 09:09 05/01/25 05/08/25 15:49 09:06 Wound Care Center Nurse 3 right medial TMA ulcer -Ulcer Cleansing Rinsed/ Rinsed/ Irrigated with Irrigated with Saline Saline -Other Dressing dakins moist betadine gauze -Primary Dressing Covered/Secured with Dry Gauze & Dry Gauze & Roll Gauze, Roll Gauze, Secured with Secured with Tape Tape RLE -Tubular Bandage Single Layer -Size of Tubigrip Used Size E -Size E ($) 1 Pain Scale: 0-10 Numeric Is Patient Pain Free? Yes Yes WC - Visit Discharge Discharge Condition Stable Stable Ambulatory Status Ambulatory, Ambulatory, Walker Walker Transportation Private Auto Private Auto Clinical Summary of Care Provided Yes Yes Assessment/Plan Assessment/Plan (1) Non-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: CODE(S): L97.514 - Non-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 PLAN: Patient was examined and evaluated. All findings were discussed with the patient. All questions were answered to the patient's satisfaction. Excisional debridement down to and including subcutaneous, fascia, muscle, and bone tissue with a number 3 mm dermal curette to the TMA site medial aspect full-thickness wound done without incident. Predebridement measurement was 0.8 x 0.8 x 0.8 cm. Postdebridement measurement is 1.0 x 1.0 x 1.2 cm. The area was dressed with Betadine soaked gauze dry sterile dressing and compression wrap was donned to the right lower extremity. Patient will change daily. Was discussed with the patient importance of daily dressing changes to allow for cleaning of the wound and visualization which she was understanding of. Review of the patient's microbiology culture and sensitivities show polymicrobial growth. The patient is showing some resistance to common antibiotics MRSA. Review of theantibiogram of the hospital the patient will be placed on levofloxacin 500 g daily until linezolid can be approved from his insurance. All risk benefits of the antibiotics were discussed the patient great detail. Follow-up at the wound care center with Dr. Lyons in 2 week
--- NOTE | 2025-05-08 13:36 | WC ---
Sky called letting me know that there were 2 antibiotics to tack picker at his pharmacy. Dr Lyons wants Linezolid but because of his insurance coverage, concerned there would be a delay due to prior auth and ordered Levaquin to start for the time being. Called retail pharmacy at [facility] and spoke to Gisel who confirmed that there 2 prescriptions and there are no costs one being Linezolid. Told Gisel to cancel the Levaquin and for patient to only tack picker and start Linezolid. Called and spoke to Dr Lyons who confirmed okay and called patient to let him know that he will only be picking up Linezolid. Patient verbalized understanding and will go tomorrow to get it once he has transportation.
[2025-05-15 14:45] VITALS: BP 150/70; PULSE 106; RESP 16; TEMP 36.6
--- NOTE | 2025-05-16 11:53 | WC ---
PHOTO-RIGHT TMA 05/15/25
--- NOTE | 2025-05-16 22:10 | PN.PCM_ITS ---
History of Present Illness Date of Service: 05/15/25 Chief Complaint: Ulcer right foot History of Wound: Slow healing full-thickness wound right TMA site medial side. Progress of Wound: Slow healing full-thickness wound right TMA site medial side. Subjective Subjective Patient is a 74-year-old diabetic male presenting to clinic today follow-up evaluation of full-thickness wound to the medial aspect of the right TMA site. Patient has been compliant with dressing changes. He is taking linezolid twice daily for the past week without any events happening. His blood sugars well-controlled. He continues to smoke. He denies trauma. Denies constitutional symptoms. No other pedal complaints at this time. Objective Data Objective Data Vital Signs: Vital Signs Temp Pulse Resp BP O2 Del Method 97.8 F 106 H 16 150/70 H Room Air 05/15/25 14:45 05/15/25 14:45 05/15/25 14:45 05/15/25 14:45 05/15/25 14:45 Oxygen Delivery Method Room Air Lab / Micro Data Micro: Microbiology 05/01/25 15:20 Tissue - Right Foot Gram Stain - Final 05/01/25 15:20 Tissue - Right Foot Wound Culture - Final Meth. resistant Staph. aureus Enterococcus faecalis Enterococcus faecium 05/01/25 15:20 Tissue - Right Foot Anaerobic Culture - Final No anaerobic bacteria isolated. Physical Exam Narrative Vascular: DP and PT pulses are palpable to the right lower extremity. CFT is brisk to the flap to the right foot. Skin temperature gradient is warm to warm from proximal ankles to distal stump with no focal increase appreciated to the medial distal aspect of the TMA stump. Erythema improved. Neurological: Light touch intact. Patient does not respond to painful stimuli. Dermatological: Full-thickness wound to the medial aspect of the TMA site to the right lower extremity measuring 0.8 x 0.5 x 0.8 cm. Wound base is fibrogranular nature with positive probe to bone. Excisional debridement down to and including subcutaneous, fascia, muscle, and bone tissue with a number 3 mm dermal curette to the TMA site medial aspect full-thickness wound done without incident. Predebridement measurement was 0.6 x 0.4 x 0.5 cm. Postdebridement measurement is 0.8 x 0.5 x 0.8 cm. Musculoskeletal. No pain to palpation to the full-thickness wounds to the right lower extremity. No pain with calf pressure. Debridement Note Debridement Note Debridement Free Text: Excisional debridement down to and including subcutaneous, fascia, muscle, and bone tissue with a number 3 mm dermal curette to the TMA site medial aspect full-thickness wound done without incident. Predebridement measurement was 0.6 x 0.4 x 0.5 cm. Postdebridement measurement is 0.8 x 0.5 x 0.8 cm. Post-Debridement Measurements and Additional Note: Post-Debridement Measurements/Treatment - Nurse 1 - General Ulcer Assessment Start: 05/01/25 15:09 Freq: Status: Active Protocol: DOLORES.PURVI Activity Type Activity Date Activity User E-sign Co-sign Detail Recorded Client Recorded Date Recorded By Document 05/01/25 15:09 CP [id number] 05/01/25 15:14 CP Document 05/08/25 08:27 CP [id number] 05/08/25 08:35 CP Document 05/15/25 14:45 TS [id number] 05/15/25 14:52 TS 05/01/25 05/08/25 05/15/25 15:09 08:27 14:45 - Today's Visit Information Type of service Follow-up Visit Follow-up Visit Initial Visit (Physician/CONCRETE STONE FINISHING SUPERVISOR (Physician/CONCRETE STONE FINISHING SUPERVISOR ) ) Arrival Mode Ambulatory, Ambulatory, Ambulatory, Walker Walker Walker Patient Identification Verified (Name & Yes Yes Yes ) Safety Precautions Fall Prevention Vital Signs Temperature (97.8 F-99.1 F) 97.5 F L 97.1 F L 97.8 F Temperature Source Temporal Temporal Temporal Pulse Rate (60-100) 104 H 87 106 H Pulse Location Monitor Monitor Monitor Respiratory Rate (12-18) 16 16 16 Respiratory rate source Observation Observation Observation Oxygen Delivery Method Room Air Blood Pressure (90/60-120/80) 181/89 H 149/63 H 150/70 H Blood Pressure Mean (mm Hg) 119 91 96 Source Monitor Monitor Position Sitting Sitting Sitting Blood Pressure Location Left Arm Left Arm Left Arm History Since Last Visit- (Skip if this is Patient's initial visit) Have you changed medications since your No No No last visit? Any new allergies or adverse reactions No No No Had a fall/change in ADL's that may No No No increase risk of falls Signs or symptoms of abuse and/or No No No neglect since last visit Have you been in the hospital since your No No No last visit? Has dressing in place as prescribed Yes Yes Yes Has compression in place as prescribed Yes Yes Yes Has offloadiing in place as prescribed N/A N/A N/A Experienced any changes in pain level or No No management Left Footwear Regular Shoe Right Footwear Surgical Shoe with pressure relief insole Pain Scale: 0-10 Numeric Is Patient Pain Free? Yes Yes Yes WC - Nurse 1 - General Ulcer Measurement Start: 05/01/25 15:09 Freq: Status: Active Protocol: Activity Type Activity Date Activity User E-sign Co-sign Detail Recorded Client Recorded Date Recorded By Document 05/01/25 15:09 CP [id number] 05/01/25 15:14 CP Document 05/08/25 08:27 CP [id number] 05/08/25 08:35 CP Document 05/15/25 14:45 TS [id number] 05/15/25 14:52 TS 05/01/25 05/08/25 05/15/25 15:09 08:27 14:45 Wound Center Nurse 1 right lateral TMA -Current Size (cm) - Length 0.1 -Current Size (cm) - Width 0.1 -Current Size (cm) - Depth 0.1 -Total Square Cm 0.01 -Date of Last Picture (Recall this 05/01/25 field) -Photo Taken Yes -Epithelialization Large 67-100% -Moisture (Donna-wound Skin Appearance) Dry/Scaly -Tenderness on Palpation (Donna-wound No Skin Appearance) -Ulcer Cleansing Rinsed/ Irrigated with Saline -Anesthetic Used 5% Lidocaine Gel right medial TMA ulcer -Combined with other wound No -Current Size (cm) - Length 0.1 1 0.9 -Current Size (cm) - Width 0.1 1 0.7 -Current Size (cm) - Depth 0.1 1 0.1 -Total Square Cm 0.01 1 0.63 -Date of Last Picture (Recall this 05/15/25 field) -Photo Taken Yes Yes -Epithelialization Large 67-100% None Present -Tunneling No -Undermining/Tunneling No No -Circular Undermining No -Exudate Amt Small Medium -Exudate Type Serosanguineous Serous -Wound Margin Flat & Intact Distinct, Outline Attached -Granulation Amt None Present (0 Small (1-33%) None Present (0 %) %) -Granulation Quality Red -Slough/Fibrin Yes Yes -Necrosis Amt Large (67-100%) Large (67-100%) -Necrotic Tissue Type Adherent Slough Adherent Slough -Structure Exposed N/A N/A -Texture (Donna-wound Skin Appearance) No Abnormality Assessed -Moisture (Donna-wound Skin Appearance) Maceration No Abnormality Assessed -Color (Donna-wound Skin Appearance) No Abnormality Assessed -Temperature (Donna-wound Skin No Abnormality No Abnormality Appearance) (Pt Warm) (Pt Warm) -Tenderness on Palpation (Donna-wound No No Skin Appearance) -Ulcer Cleansing Soap and Water Soap and Water -Foul Odor after Cleansing Yes No -Anesthetic Used 5% Lidocaine 5% Lidocaine 5% Lidocaine Gel Gel Gel WC - Nurse 2 - General Ulcer CM Notes Start: 05/01/25 15:09 Freq: Status: Active Protocol: Activity Type Activity Date Activity User E-sign Co-sign Detail Recorded Client Recorded Date Recorded By Document 05/01/25 15:18 [id number] 05/01/25 15:24 Document 05/08/25 08:51 [id number] 05/08/25 08:52 Document 05/15/25 15:10 [id number] 05/15/25 15:13 05/01/25 05/08/25 05/15/25 15:18 08:51 15:10 Wound Center Nurse 2 right lateral TMA -Time 15:22 -Correct Patient Yes -Correct Side, Site, Position No -Correct Procedure No -Procedure Performed No -Tissue Removed Non-viable tissue -Tunneling No -Undermining/Tunneling No -Circular Undermining No -Wound/Ulcer Outcome Healed- Epithelialized -Ulcer Cleansing Rinsed/ Irrigated with Saline -Foul Odor after Cleansing No -Bioengineered Tissue No -Bleeding Controlled with Pressure -Treatment Response Procedure Tolerated Well -Offloading Yes -Type of Offloading Surgical Shoe -Debridement - Bone, 1st 20sq cm Yes right medial TMA ulcer -Time 15:23 08:51 15:12 -Correct Patient Yes Yes Yes -Correct Side, Site, Position Yes Yes Yes -Correct Procedure Yes Yes Yes -Procedure Performed Yes Yes Yes -Type of Procedure Debridement Debridement Debridement -Clinical Debridement Bone Bone -Tissue Removed Non-viable Non-viable Muscle,Non- tissue tissue viable tissue -Post Debridement (cm) - Length 0.7 0.8 -Post Debridement (cm) - Width 0.6 0.5 -Post Debridement (cm) - Depth 0.8 0.8 -Total Square (Post) (cm) 0.42 0.40 -Area of Debridement (cm) - Length 0.7 0.8 -Area of Debridement (cm) - Width 0.6 0.5 -Total Square (Area) (cm) 0.42 0.40 -Tunneling No No No -Undermining/Tunneling No No No -Circular Undermining No No No -Wound/Ulcer Outcome Not Healed Not Healed Not Healed -Ulcer Cleansing Rinsed/ Rinsed/ Rinsed/ Irrigated with Irrigated with Irrigated with Saline Saline Saline -Foul Odor after Cleansing No No No -Bioengineered Tissue No No No -Bleeding Controlled with Pressure, Pressure Pressure Surgifoam ? x 2 3/8 (sm) -Surgifoam (3/4 x 2 3/8) Small 1 -Treatment Response Procedure Procedure Procedure Tolerated Well Tolerated Well Tolerated Well -Offloading Yes Yes Yes -Type of Offloading Surgical Shoe Surgical Shoe Surgical Shoe -Debridement - Bone, 1st 20sq cm Yes Yes Yes Pain Scale: 0-10 Numeric Is Patient Pain Free? Yes Yes Yes WC - Nurse 3 - General Ulcer D/C NN Start: 05/01/25 15:09 Freq: Status: Active Protocol: Activity Type Activity Date Activity User E-sign Co-sign Detail Recorded Client Recorded Date Recorded By Document 05/01/25 15:49 CP [id number] 05/01/25 15:49 CP Document 05/08/25 09:06 CP [id number] 05/08/25 09:09 CP Document 05/15/25 15:29 RB [id number] 05/15/25 15:30 RB 05/01/25 05/08/25 05/15/25 15:49 09:06 15:29 Wound Care Center Nurse 3 right medial TMA ulcer -Ulcer Cleansing Rinsed/ Rinsed/ Rinsed/ Irrigated with Irrigated with Irrigated with Saline Saline Saline -Other Dressing dakins moist betadine beta dine gauze gauze / ABD -Primary Dressing Covered/Secured with Dry Gauze & Dry Gauze & Dry Gauze & Roll Gauze, Roll Gauze, Roll Gauze, Secured with Secured with Secured with Tape Tape Tape RLE -Tubular Bandage Single Layer Single Layer -Size of Tubigrip Used Size E Size D -Size D ($) 1 -Size E ($) 1 Treatment Response Procedure Tolerated Well Pain Scale: 0-10 Numeric Is Patient Pain Free? Yes Yes Yes WC - Visit Discharge Discharge Condition Stable Stable Stable Ambulatory Status Ambulatory, Ambulatory, Ambulatory, Walker Walker Walker Transportation Private Auto Private Auto transport Medication Reconcilliation completed & No provided to patient/care provider Clinical Summary of Care Provided Yes Yes Yes Assessment/Plan Assessment/Plan (1) Non-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: CODE(S): L97.514 - Non-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 PLAN: Patient was examined and evaluated. All findings were discussed with the patient. All questions were answered to the patient's satisfaction. Excisional debridement down to and including subcutaneous, fascia, muscle, and bone tissue with a number 3 mm dermal curette to the TMA site medial aspect full-thickness wound done without incident. Predebridement measurement was 0.6 x 0.4 x 0.5 cm. Postdebridement measurement is 0.8 x 0.5 x 0.8 cm. The right lower extremities were cleaned and patted dry. Betadine soaked gauze was packed to the full-thickness wound followed by dry sterile dressing and compression wrap. Patient will change daily. He will continue antibiotics as prescribed. Will continue strict blood sugar control.. I educated the patient on the importance of smoking cessation as this is most likely causing the breakdown of his current full-thickness wound and infection. Follow-up at the wound care center with Dr. Lyons in 1 week
== END 2025-05-17 23:59 | disposition home or self-care (01) ==
LOC: WC 15:00
PROVIDERS: PCP Family Medicine Geriatric Medicine; Referring Provider Podiatrist Foot & Ankle Surgery; Visit Provider Podiatrist Foot & Ankle Surgery
DX: E11.621 Type 2 diabetes mellitus with foot ulcer (principal); L97.514 Non-pressure chronic ulcer of other part of right foot with necrosis of bone; F17.200 Nicotine dependence, unspecified, uncomplicated
CPT/HCPCS: 11044; 87070; 87075; 87077; 87186; 87205

== ENCOUNTER → 2025-05-16 | Outpatient (CLI) | payer MEDICARE, MEDICAID, SELFPAY ==
[2025-05-16 16:41] LABS: Hematocrit 31.4 % (40-54); Hemoglobin 10.7 g/dL (13.0-16.5); Immature Granulocytes Count 0.010 X10^3/uL (0.0-0.0); Mean Corp Hgb Conc 34.1 g/dL (32-36); Mean Corpuscular Volume 94.3 fL (80-94); Mean Platelet Vol. 9.7 fl (6.2-12.0); NRBC Flagged by Analyzer 0 % (0-5); Platelet Count 231 K/mm3 (150-450); RBC Distribution Width CV 12.9 % (11.6-14.6); RBC Distribution Width SD 43.8 fl (35.1-43.9); Red Blood Count 3.33 M/mm3 (4.6-6.2); White Blood Count 5.8 K/mm3 (4.4-11.0)
[2025-05-16 18:19] LABS: AST(SGOT) 26 U/L (<=37); Alanine Aminotransfer ALT/SGPT 15 U/L (<=46); Albumin, Serum 3.9 g/dL (3.4-4.8); Alkaline Phosphatase 101 U/L (40-129); Anion Gap 10 (5-15); BUN 15 mg/dL (4-19); BUN/Creat Ratio 12.5 RATIO (10-20); Calcium,Total 8.7 mg/dL (7.6-11.0); Carbon Dioxide 21.2 mmol/L (21.0-32.0); Chloride 108 mmol/L (98-108); Cholesterol 129 mg/dL (<=200); Globulin 3.1 g/dL (2.2-4.2); Glucose 93 mg/dL (70-99); Low Density Lipoprotein Calc. 63 mg/dL; Potassium 4.9 mmol/L (3.3-5.1); Triglycerides 152 mg/dL; Very Low Density Lipoprotein 30 mg/dL (5-40); Vitamin D,25 Hydroxy 26.7 ng/mL (30-100); cholesterol:hdl ratio screen 3.28
== END | disposition home or self-care (01) ==
LOC: LAB 15:32
PROVIDERS: PCP Family Medicine Geriatric Medicine; Referring Provider Family Medicine Geriatric Medicine; Visit Provider Family Medicine Geriatric Medicine
DX: E78.5 Hyperlipidemia, unspecified (principal); E11.65 Type 2 diabetes mellitus with hyperglycemia; E55.9 Vitamin D deficiency, unspecified; I10 Essential (primary) hypertension; E03.9 Hypothyroidism, unspecified
CPT/HCPCS: 36415; 80053; 80061; 82306; 83036; 84443; 85025